=== PATIENT | male | born 1965 | race Caucasian/White ===

== ENCOUNTER 2018-10-09 10:31 | Inpatient (IN) | payer BC ==
[2018-10-09] VITALS (19 sets, daily range): BP systolic 76–104; BP diastolic 59–75; PULSE 111–120; RESP 16–35; Ht 160 cm; Wt 46.0 kg
[~2018-10-09] VITALS: Ht 160 cm; Wt 46.0 kg
[2018-10-09] MEDS ORDERED: BISACODYL 10 MG SUPP PR PRN (14:00)
[2018-10-09] MEDS ORDERED: hydrALAzine 20 MG INJ IV PRN (14:00)
[2018-10-09] MEDS ORDERED: AL HYDROX/MG HYDROX/SIMETH 30 ML CUP PO PRN (14:00)
[2018-10-09] MEDS ORDERED: SENNA TAB PO PRN (14:00)
[2018-10-09] MEDS ORDERED: POLYETHYLENE GLYCOL 17 GM PACKET GTB PRN (14:00)
[2018-10-09] MEDS ORDERED: MICONAZOLE 2% 30 GM CR TOP PRN (14:00)
--- NOTE | 2018-10-09 14:47 | CONS ---
DATE OF ADMISSION: 10/09/2018 DATE OF CONSULTATION: 10/09/2018 REASON FOR CONSULTATION: Tachycardia. REQUESTING PHYSICIAN: Nola Vidal MD; Heena Hoyt MD HISTORY OF PRESENT ILLNESS: Mr. Quiroga is a 53-year-old male with a history of outside hospitaliza tion for respiratory distress, COPD who subsequently had a prolonged intubation, requiring placement of a tracheostomy and G-tube. Additionally, a history of quadriplegia, COPD and had been treated at [facility] and today was noted to have the onset of worsening hypoxia, increasing O2 requirements up to 100%. The patient has now been transferred to the ICU at [facility] for ongoing treatment and evaluation. Since arrival, temperature 100.8, blood pressure 99/69, pulse 112. PAST MEDICAL HISTORY: As above in HPI, the patient with history of diabetes mellitus, spinal stenosi s, cervical myelopathy, [02:26] arthritis, steroid dependent, adrenal insufficiency, on steroids , quadriplegia. MEDICATIONS PRIOR AT [place]: Hydrocortisone for adrenal insufficiency, Reglan DuoNebs. MEDICATIONS CURRENTLY IN HOSPITAL: Pending at this time. MEDICATIONS PRIOR TO ADMIT: 1. Hydrocodone. 2. Reglan. 3. DuoNeb. 4. Lasix. 5. Potassium. 6. Insulin. 7. Gabapentin. 8. Tylenol. 9. Clonidine. 10. Metoprolol 50 b.i.d. 11. Magnesium oxide. ALLERGIES: No known drug allergies. SOCIAL HISTORY: No current tobacco, ETOH or illicit drug use. FAMILY HISTORY: No sudden cardiac or early CAD. REVIEW OF SYSTEMS: As above in HPI. CONSTITUTIONAL: Positive fevers. PULMONARY: Respiratory failure, chronic, status post trach. GASTROINTESTINAL: Status post G-tube. GENITOURINARY: No hematuria. MUSCULOSKELETAL: Degenerative joint disease. PSYCHIATRIC: No documented psych history. NEUROLOGIC: No documented history of CVA. ENDOCRINE: Positive diabetes mellitus. PHYSICAL EXAMINATION: VITAL SIGNS: Temperature 100.8, blood pressure 99/69, pulse 112, respiratory rate 25. GENERAL: The patient is alert, awake, no acute distress. NECK: JVP approximately 8 to 9 cm of water. CHEST: Fair air movement throughout. HEART: Regular rate and rhythm. Normal S1, S2, I/ systolic murmur. Nondisplaced PMI. ABDOMEN: Positive bowel sounds, soft. EXTREMITIES: No significant pitting edema, 1+ pulses bilateral posterior tibial. LABORATORY DATA: ABG from today revealing a pH of 7.415, a pO2 of 66, pCO2 of 58. IMAGING STUDIES: As above in HPI. No further imaging studies for my review at this time. ELECTROCARDIOGRAM: No further electrocardiograms for my review at this time. IMPRESSION: 1. Tachycardia at this time in the setting of fevers and respiratory distress, most consistent with sinus tachycardia likely driving this process. 2. Hypertension with borderline hypotension at this time. 3. Abnormal electrocardiogram at baseline. 4. Chronic respiratory failure, status post tracheostomy. 5. Dysphagia, status post G-tube. 6. Quadriplegia. 7. Renal insufficiency, on steroids. 8. Chronic obstructive pulmonary disease. 9. Rheumatoid arthritis. 10. Chronic kidney disease. 11. Diabetes mellitus. RECOMMENDATIONS: 1. At this time, would maintain the patient in ICU on close monitoring. 2. Would follow the patient's repeat chest x-ray for reassessment of the patient's pulmonary vascula ture. 3. Would continue the patient's ventilatory support and would resume the patient's baseline steroids and bronchodilators. Additionally would consider reinitiation of antibiotic therapy and would check culture data, follow up culture data closely. 4. Treat the patient's fevers and follow for any recurrence and follow heart rate closely. 5. We will reorder the patient's echo as once again somehow was ordered at [place], but it was not do ne. Thank you for allowing me to take part in the care of this patient. I will continue to follow very c losely with you with recommendations to be made as the patient progresses through his inpatient hospi loyd clinical course. Dictated By: BRISA TSAI/EFREN Conf#: [id number] DID#: [id number] CC: NOLA VIDAL MD;*End*
[2018-10-09] MEDS ORDERED: GLUCAGON 1 MG INJ IM PRN (15:00)
[2018-10-09] MEDS ORDERED: DEXTROSE 50% 50 ML SYRINGE IV PRN ×2 (15:00)
[2018-10-09] MEDS ORDERED: GLUCOSE GEL 15 GRAM TUBE BUCCAL PRN (15:00)
[2018-10-09] MEDS ORDERED: GLUCOSE GEL 15 GRAM TUBE PO PRN ×2 (15:00)
--- NOTE | 2018-10-09 15:05 | CONS ---
DATE OF ADMISSION: 10/09/2018 DATE OF CONSULTATION: TYPE OF CONSULTATION: Gastroenterology. HISTORY OF PRESENT ILLNESS: A 53-year-old male with a history of cervical spine surgery, status post functional quadriplegia, status post G-tube, tracheostomy, vent dependent respiratory failure, chron ic adrenal insufficiency, rheumatoid arthritis for the last 10 years on steroid, was stable in [place] ; however this morning, his condition deteriorated. He became not short of breath requiring 100% oxy gen, so he was transferred to intensive care unit at [facility] for further managem ent. As per the staff nurse, I discussed both at [place] and here, there was no evidence of aspiratio n of the formula. The patient did have 1 episode of emesis yesterday then the formula was increased from 30 to 45 mL. No GI bleeding. No chest pain. No abdominal pain. The patient is fully alert an d awake. PAST MEDICAL HISTORY: Chronic kidney disease, hypothyroidism, severe rheumatoid arthritis, chronic p ain, degenerative joint disease. PAST SURGICAL HISTORY: Status post left shoulder surgery, left femur surgery, C-spine surgery and a G-tube. SOCIAL HISTORY: Does not smoke or drink. MEDICATIONS: All reviewed. PHYSICAL EXAMINATION: GENERAL: He is fully alert, awake, not in distress, able to communicate and family is by the side of the patient. CARDIOVASCULAR: No murmur. LUNGS: Air entry diminished at both bases. He is on vent, FiO2 of 80%. ABDOMEN: Totally benign. EXTREMITIES: No edema. CENTRAL NERVOUS SYSTEM: Oriented. Unable to move the lower extremities. IMPRESSION: 1. Respiratory failure secondary to pneumonia versus interstitial pneumonitis from rheumatoid arthri tis versus mild aspiration. The patient was getting ice chips. There was no evidence of aspiration of formula. 2. Severe rheumatoid arthritis. 3. Quadriplegia. 4. Adrenal insufficiency. 5. Gastroparesis. 6. Hypothyroidism. 7. Chronic pain syndrome. 8. Hypertension. PLAN: Continue Reglan. We will keep him n.p.o. for 24 hours until his respiratory status got stabil ized and we will start feeding him tomorrow morning at 30 mL per hour. Continue present care. Dictated By: BHAVIK KENT/EFREN Conf#: [id number] DID#: [id number] CC: DALTON DURBIN MD; NOLA VIDAL MD;*End*
[2018-10-09] MEDS ORDERED: SOD CHLORIDE 0.9% 500 ML IV ONE (15:30)
[2018-10-09] MEDS: GABAPENTIN (50 MG/ML PO SYG) GTB SCH ×2 (15:42→21:54)
[2018-10-09] MEDS: INSULIN ASPART [NOVOLOG] 3 ML PEN SC SCH ×2 (15:42→20:00)
[2018-10-09] MEDS: HYDROCORTISONE 5 MG TAB PO SCH ×2 (15:43→21:54)
[2018-10-09] MEDS: HYDROmorphONE 2 MG TAB PO PRN (15:44)
[2018-10-09] MEDS ORDERED: ALBUTEROL/IPRATROPIUM (NEB) 3 ML AMP HHN SCH (17:00)
[2018-10-09] MEDS: LANSOPRAZOLE 30 MG CAP GTB SCH (17:13)
[2018-10-09] MEDS ORDERED: ALBUTEROL HFA 8 GM INHALER INH SCH (20:00)
[2018-10-09] MEDS ORDERED: IPRATROPIUM (HFA) 12.9 GM INHALER INH SCH (20:00)
[2018-10-09] MEDS: PIPER-TAZO 3.375 GM IV (PMX) 100 ML IVPB SCH (20:08)
[2018-10-09] MEDS: METOPROLOL 50 MG TAB GTB SCH (21:00)
[2018-10-09] MEDS: LEVETIRACETAM (100 MG/ML) 5ML CUP GTB SCH (21:52)
[2018-10-09] MEDS: MAGNESIUM OXIDE 400 MG TAB GTB SCH (21:53)
[2018-10-09] MEDS: L ACIDOPHIL/B LACTIS/B LONGUM CAPSULE GTB SCH (21:54)
[2018-10-09] MEDS: METOCLOPRAMIDE 10 MG INJ IV SCH (21:58)
[2018-10-09] MEDS: ONDANSETRON 4 MG INJ IV PRN (22:13)
--- NOTE | 2018-10-09 22:38 | CONS ---
Assessment/Plan Assessment/Plan Hospital Course (Demo Recall) sepsis, respiratory - recurrent sepsis on 10/08/2018 due to possible aspiration pneumonia, HCAP - possible aspiration pneumonia - acute on chronic hypoxic and hypercarbic respiratory failure - persistent leukocytosis likely due to pneumonia, partly due to steroid margination - h/o tracheostomy on 08/26/2018 - h/o "Increased mild left apical pneumothorax" per CXR on 09/19/2018; no pneumothorax mentioned on subsequent CXR - h/o pneumomediastinum - h/o VAT on 08/11/2018 - h/o asthma/COPD exacerbation - h/o acute tracheobronchitis - h/o MAC infection but CT chest did not demonstrate features suggestive of this per chart review - h/o HCAP due to citrobacter, based on resp culture on 09/13/2018 - h/o aspergillus growing out of resp culture per (pulm note by Dr. Lopez) on 07/25/2018 - h/o elevated 1,3 Rprh-A-fffeil level = 232 on 08/06/2018 - h/o MSSA septicemia GI - h/o HSV esophagitis, took acyclovir x21 days from 08/26/2018 - h/o EGD, esophageal biopsy showed esophageal squamous mucosa showing acute inflammation, granulation tissue, and ulceration consistent with ulcerative esophagitis, rare multinucleated cells with morphology suggestive of vial cytopathic changes, No cardiac mucosa, intestinal metaplasia, dysplasia, or malignancy defined - GERD - PUD renal/ - Hypokalemia, recurrent - CKD 2 - BPH cardiac - tachycardia, persistent - ACD - HTN - HLD endo - T2DM - Hgb A1c 7.2% - secondary adrenal insufficiency; steroid dependent - Hypoparathyroidism - Hypercalcemia - Pamidronate was ordered neuro - toxic metabolic encephalopathy - Cervical myopathy - Severe cervical spinal cord stenosis with cord compression from C3-C5, s/p laminectomy in ~03/2018 - Chronic pain syndrome - Functional quadriplegia - Seizure d/o other chronic conditions - RA with chronic steroid dependence - Immunocompromised status - Fibromyalgia rheumatica - DDD - H/o multiple rib fracture - Pt completed: meropenem (09/25/2018-10/02/2018), vancomycin (09/25/18-09/28/18) recommendations - pending results: cultures of blood and urine from 10/09/2018 (at [facility]) - ordered: resp culture and stool for C diff and culture - continue pip/tazo (10/09/2018-) - continue Bactrim for pneumocystis PPX - management d/w Pt's RN the critical care time I took to care for this Pt today was from 2200 to 2230 Consultation Date/Type/Reason Admit Date/Time Oct 09, 2018 at 12:16 Date of Consultation: Oct 09, 2018 Type of Consult ID Reason for Consultation sepsis Requesting Provider: NOLA VIDAL MD Date/Time of Note DATE: 10/09/18 TIME: 22:10 Hx of Present Illness This is a 53 yo male with COPD, chronic adrenal insufficiency, steroid dependent rheumatoid arthritis. He had cervical myelopathy, spinal stenosis and cord compression s/p cervical laminectomy in 03/2018. Pt has been quadriplegic. In the beginning of 07/2018 Pt was treated for COPD exacerbation at [facility] and was discharged home with steroid, azithromycin and cefdinir. Pt was readmitted at [facility] between 07/26/2018 and 09/16/2018 for worsening dyspnea. Pt initially received ceftriaxone and azithromycin for acute tracheobronchitis. Pt's ID digital media sales consultant there was Dr. Sosa. Pt has remote h/o MAC infection but CT chest did not demonstrate features suggestive of this per chart review. At [facility], he had aspergillus growing out of resp culture per (pulm note by Dr. Lopez) on 07/25/2018. He underwent VATS on 08/11/2018 with details unknown. His resp status worsened resulting in tracheostomy on 08/26/2018 and PEG placement. Pt was started on Bactrim for pneumocystis prophylaxis because he is on chronic steroid and because his 1,0-hepx-L-glucan level was elevated 232 on 08/06/2018. He reportedly had HSV esophagitis during that admission and took acyclovir for 21 days starting on 08/26/2018. He had an EGD, and is esophageal biopsy showed esophageal squamous mucosa showing acute inflammation, granulation tissue, and ulceration consistent with ulcerative esophagitis, rare multinucleated cells with morphology suggestive of vial cytopathic changes. Pt also had MSSA septicemia with detail of his treatment unknown. His hospital course there was also significant for seizure activities for which he was given keppra. His head CT was reportedly negative. Prior to transfer to [facility], Pt had HCAP due to citrobacter, based on resp culture on 09/13/2018, and took meropenem. Pt was transferred to [facility] on 09/17/2018 with meropenem and prophylactic Bactrim. Dr. Vidal requested ID consultation on this Pt because of leukocytosis. Our team evaluated Pt and initially his leukocytosis was thought to be associated with tracheobronchitis and steroid. Pt continued to take meropenem, and IV vancomycin was added at one point. Cultures of blood and urine were negative, and his resp culture on 09/26/2018 grew normal resp jadon. Meropenem and IV vancomycin were discontinued . Pt was kept on Bactrim for pneumocystis propylaxis. Last week he started having repeated episodes of vomiting. He was also noted to have hypercalcemia. For the last three days, he was noted to be more lethargic and to have increased FiO2 requirement. WBC increased to 23.4 and his lactic acid was 2.2 on 10/08/2018. As a result blood and urine cultures were collected. CXR showed diffuse pulmonary opacities within both lungs. On 10/09/2018 he developed acute on chronic hypoxic resp failure, and was transferred to [facility] ICU. At present Pt c/o abd pain, and had diarrhea. Pt denies dyspnea. I evaluated Pt to continue providing ID consultation service for this Pt Subjective hx not possible: pt non-verbal (limited, he would speak by moving his lips only), pt critical, pt critical status Respiratory: No shortness of breath Cardiovascular: No chest pain Gastrointestinal: diarrhea, nausea; No pain Genitourinary: other (FC) Neurologic: No headache Past Medical History Medical History: hypertension, renal disease, other (COPD, RA, spinal stenosis, neuropathy, cervical myelopathy with cervical radiculopathy, chronic pain syndrome, tracheobronchitis, fibromyalgia, MAC infection, anemia, chronic steroid therapy) Medications Current Medications Acetaminophen (Tylenol Liquid) 650 mg Q4H PRN GTB MILD PAIN(1-3)OR ELEVATED TEMP; Start 10/09/18 at 14:00 Al Hydrox/Mg Hydrox/Simethicone (Mag-Al Plus) 15 ml Q6H PRN PO GASTROINTESTINAL UPSET; Start 10/09/18 at 14:00 Alprazolam (Xanax) 0.5 mg Q6 PRN GTB ANXIETY; Start 10/09/18 at 14:00 Eye Lubricant (Artificial Tears Oph) 1 drop Q6H PRN BOTH EYES DRY EYES; Start 10/09/18 at 14:00 Bisacodyl (Dulcolax Supp) 10 mg DAILY PRN CA CONSTIPATION; Start 10/09/18 at 14:00 Clonidine (Catapres) 0.1 mg DAILY PRN GTB ELEVATED BLOOD PRESSURE; Start 10/09/18 at 14:00 Diltiazem HCl (Cardizem Iv) 5 mg Q4 PRN IV ELEVATED HEART RATE; Start 10/09/18 at 14:00 Diphenhydramine HCl (Benadryl Liquid Cup) 25 mg Q6 PRN GTB ITCHING; Start 10/09/18 at 14:00 Duloxetine HCl (Cymbalta) 30 mg DAILY PO ; Start 10/10/18 at 09:00 Epoetin Arpan (Epogen (Esrd)) 10,000 units TuSa@1300 SC ; Start 10/11/18 at 13:00 Fentanyl (Duragesic 25 Mcg/Hr Patch) 1 patch Q72H TRANSDERM ; Start 10/11/18 at 15:00 Furosemide (Lasix) 40 mg DAILY IV ; Start 10/10/18 at 09:00 Gabapentin (Neurontin Liquid) 400 mg Q8 GTB Last administered on 10/09/18at 21:54; Admin Dose 400 MG; Start 10/09/18 at 15:30 Hydralazine HCl (Apresoline) 10 mg Q4H PRN IV ELEVATED BLOOD PRESSURE; Start 10/09/18 at 14:00 Hydrocortisone (Cortef) 10 mg DAILY PO ; Start 10/10/18 at 09:00 Hydrocortisone (Cortef) 5 mg 1500 PO Last administered on 10/09/18at 15:43; Admin Dose 5 MG; Start 10/09/18 at 15:00 Hydrocortisone (Cortef) 2.5 mg QHS PO Last administered on 10/09/18at 21:54; Admin Dose 2.5 MG; Start 10/09/18 at 21:00 Influenza Virus Vaccine Quadrival (Fluzone) 0.5 ml ONCE ONCE IM* ; Start 10/12/18 at 09:00; Stop 10/12/18 at 09:01 Hydromorphone HCl (Dilaudid) 4 mg Q4H PRN PO MODERATE PAIN LEVEL 4-6; Start 10/09/18 at 14:00 Hydromorphone HCl (Dilaudid) 8 mg Q4H PRN PO SEVERE PAIN LEVEL 7-10 Last administered on 10/09/18at 15:44; Admin Dose 8 MG; Start 10/09/18 at 14:00 Hydroxychloroquine Sulfate (Plaquenil) 200 mg BID PO ; Start 10/09/18 at 21:00 Diagnostic Test (Pha) (Accu-Chek) 1 ea 02 XX ; Start 10/10/18 at 02:00 Insulin Aspart (Novolog Insulin Pen) NOVOLOG *CUSTOM* ALGORITHM Q6H SC ; Start 10/09/18 at 14:00 Lactobacillus Acidophilus (Florajen3 Capsule) 1 each BID GTB Last administered on 10/09/18 21:54; Admin Dose 1 EACH; Start 10/09/18 at 21:00 Lansoprazole (Prevacid) 30 mg BID@,18 GTB Last administered on 10/09/18 17:13; Admin Dose 30 MG; Start 10/09/18 at 18:00 Levetiracetam (Keppra Liquid) 500 mg BID GTB Last administered on 10/09/18 21:52; Admin Dose 500 MG; Start 10/09/18 at 21:00 Magnesium Oxide (Mag-Ox 400) 400 mg BID GTB Last administered on 10/09/18 21:53; Admin Dose 400 MG; Start 10/09/18 at 21:00 Metoclopramide HCl (Reglan) 10 mg TID IV Last administered on 10/09/18 21:58; Admin Dose 10 MG; Start 10/09/18 at 21:00 Metoprolol Tartrate (Lopressor) 50 mg BID GTB ; Start 10/09/18 at 21:00 Miconazole Nitrate (Miconazole 2% Cr) 1 applic BID TOP ; Start 10/09/18 at 21:00 Miconazole Nitrate (Miconazole 2% Cr) 1 applic Q12 PRN TOP rash; Start 10/09/18 at 14:00 Ondansetron HCl (Zofran Inj) 4 mg Q4H PRN IV NAUSEA AND/OR VOMITING; Start 10/09/18 at 14:00 Polyethylene Glycol (Miralax) 17 gm DAILY PRN GTB CONSTIPATION; Start 10/09/18 at 14:00 Potassium Chloride (Potassium Chloride Pwd/Soln) 20 meq DAILY GTB ; Start 10/10/18 at 09:00 Senna (Senokot) 2 tab Q8 PRN PO CONSTIPATION; Start 10/09/18 at 14:00 Trimethoprim/ Sulfamethoxazole (Bactrim Susp) 40 ml DAILY GTB ; Start 10/10/18 at 09:00 Zolpidem Tartrate (Ambien) 5 mg HS PRN PO INSOMNIA; Start 10/09/18 at 14:00 Miscellaneous Information 1 ea NOTE XX ; Start 10/09/18 at 15:00 Glucose (Glutose) 15 gm Q15M PRN PO DECREASED GLUCOSE; Start 10/09/18 at 15:00 Glucose (Glutose) 22.5 gm Q15M PRN PO DECREASED GLUCOSE; Start 10/09/18 at 15:00 Dextrose (D50w Syringe) 25 ml Q15M PRN IV DECREASED GLUCOSE; Start 10/09/18 at 15:00 Dextrose (D50w Syringe) 50 ml Q15M PRN IV DECREASED GLUCOSE; Start 10/09/18 at 15:00 Glucagon (Glucagen) 1 mg Q15M PRN IM DECREASED GLUCOSE; Start 10/09/18 at 15:00 Glucose (Glutose) 15 gm Q15M PRN BUCCAL DECREASED GLUCOSE; Start 10/09/18 at 15:00 Albuterol (Ventolin Hfa) 4 puff Q6 INH ; Start 10/09/18 at 20:00 Ipratropium [place] (Atrovent Hfa) 4 puff Q6 INH Last administered on 10/09/18at 19:28; Admin Dose 4 PUFF; Start 10/09/18 at 20:00 Sodium Chloride 500 ml @ 500 mls/hr Q1H PRN IV BLOOD PRESSURE SUPPORT; Start 10/09/18 at 19:30 Piperacillin Sod/ Tazobactam Sod 100 ml @ 200 mls/hr Q6 IVPB Last administered on 10/09/18at 20:08; Admin Dose 200 MLS/HR; Start 10/09/18 at 20:00 Allergies: Coded Allergies: No Known Allergy (Unverified , 09/16/18) Past Surgical History Past Surgical Hx: other (L shoulder surgery, L femur fracture ORIF, C3-C5 lami nectomy with instrucmention from C3-C6, taract repair, EGD, colonoscopy, ERCP, I&D of thumb abscess, laser lithotripsy of nephrolithiasis) Social History Smoking Status: Never smoker Drug Use: none Exam/Review of Systems Exam Vitals Vital Signs Date Temp Pulse Resp B/P (MAP) Pulse Ox O2 O2 Flow FiO2 Time Delivery Rate 10/09/18 117 20:00 10/09/18 16 88/71 (77) 95 Mechanical 18:00 Ventilator 10/09/18 80 17:46 10/09/18 99.6 16:00 Constitutional: frail, other (thin) Psych: other (flat affect) Eyes: nl conjunctiva, nl lids ENMT: nl external ears & nose, other (no thrush) Neck: other (trach) Respiratory: diminished breath sounds Cardiovascular: edema (all extremities), other (tachycardic and regular) Gastrointestinal: soft, non-tender, other (PEG) Genitourinary - Male: other (FC) Musculoskeletal: nl extremities to inspection Extremities: edema (all extremities and fingers) Neurological: lethargic Skin: ecchymosis Results Results 24hrs Laboratory Tests Test 10/09/18 13:25 10/09/18 15:28 10/09/18 20:09 Blood Gas Specimen Source Blood arterial Arterial Blood Date Drawn 10/09/2018 1:27:16 PM Arterial Blood pH 7.415 (Temp corrected) Arterial Blood pCO2 58.8 H (Temp correct) Arterial Blood pO2 66.0 L (Temp corrected) Arterial Blood HCO3 36.9 H Arterial Blood Base Excess 10.5 H Arterial Blood 91.9 L Oxygen Saturation [place] Test ACCEPTAB Arterial Blood Gas Left Radial Puncture Site Arterial 0.3 Blood Carboxyhemoglobin Arterial Blood Methemoglobin 0.4 Blood Gas A-a O2 442.7 H Differential Oxyhemoglobin Percent 91.3 L Blood Gas Temperature 37.0 Blood Gas Respiration Rate 20.0 Blood Gas Actual 23 Respiration Rate Blood Gas Modality VENT - PC/AC FiO2 80.0 Blood Gas Inspiratory Time 0.90 Blood Gas Low PEEP Setting 5.0 Blood Gas Inspiratory 28.0 Pressure Blood Gas Notified Whom LS Blood Gas Notified Time 10/09/2018 1:43:27 PM Bedside Glucose 95 84 Medications Medication Current Medications Acetaminophen (Tylenol Liquid) 650 mg Q4H PRN GTB MILD PAIN(1-3)OR ELEVATED TEMP; Start 10/09/18 at 14:00 Al Hydrox/Mg Hydrox/Simethicone (Mag-Al Plus) 15 ml Q6H PRN PO GASTROINTESTINAL UPSET; Start 10/09/18 at 14:00 Alprazolam (Xanax) 0.5 mg Q6 PRN GTB ANXIETY; Start 10/09/18 at 14:00 Eye Lubricant (Artificial Tears Oph) 1 drop Q6H PRN BOTH EYES DRY EYES; Start 10/09/18 at 14:00 Bisacodyl (Dulcolax Supp) 10 mg DAILY PRN CA CONSTIPATION; Start 10/09/18 at 14:00 Clonidine (Catapres) 0.1 mg DAILY PRN GTB ELEVATED BLOOD PRESSURE; Start 10/09/18 at 14:00 Diltiazem HCl (Cardizem Iv) 5 mg Q4 PRN IV ELEVATED HEART RATE; Start 10/09/18 at 14:00 Diphenhydramine HCl (Benadryl Liquid Cup) 25 mg Q6 PRN GTB ITCHING; Start 10/09/18 at 14:00 Duloxetine HCl (Cymbalta) 30 mg DAILY PO ; Start 10/10/18 at 09:00 Epoetin Arpan (Epogen (Esrd)) 10,000 units TuSa@1300 SC ; Start 10/11/18 at 13:00 Fentanyl (Duragesic 25 Mcg/Hr Patch) 1 patch Q72H TRANSDERM ; Start 10/11/18 at 15:00 Furosemide (Lasix) 40 mg DAILY IV ; Start 10/10/18 at 09:00 Gabapentin (Neurontin Liquid) 400 mg Q8 GTB Last administered on 10/09/18at 21:54; Admin Dose 400 MG; Start 10/09/18 at 15:30 Hydralazine HCl (Apresoline) 10 mg Q4H PRN IV ELEVATED BLOOD PRESSURE; Start 10/09/18 at 14:00 Hydrocortisone (Cortef) 10 mg DAILY PO ; Start 10/10/18 at 09:00 Hydrocortisone (Cortef) 5 mg 1500 PO Last administered on 10/09/18at 15:43; Admin Dose 5 MG; Start 10/09/18 at 15:00 Hydrocortisone (Cortef) 2.5 mg QHS PO Last administered on 10/09/18at 21:54; Admin Dose 2.5 MG; Start 10/09/18 at 21:00 Influenza Virus Vaccine Quadrival (Fluzone) 0.5 ml ONCE ONCE IM* ; Start 10/12/18 at 09:00; Stop 10/12/18 at 09:01 Hydromorphone HCl (Dilaudid) 4 mg Q4H PRN PO MODERATE PAIN LEVEL 4-6; Start 10/09/18 at 14:00 Hydromorphone HCl (Dilaudid) 8 mg Q4H PRN PO SEVERE PAIN LEVEL 7-10 Last admini stered on 10/09/18at 15:44; Admin Dose 8 MG; Start 10/09/18 at 14:00 Hydroxychloroquine Sulfate (Plaquenil) 200 mg BID PO ; Start 10/09/18 at 21:00 Diagnostic Test (Pha) (Accu-Chek) 1 ea 02 XX ; Start 10/10/18 at 02:00 Insulin Aspart (Novolog Insulin Pen) NOVOLOG *CUSTOM* ALGORITHM Q6H SC ; Start 10/09/18 at 14:00 Lactobacillus Acidophilus (Florajen3 Capsule) 1 each BID GTB Last administered on 10/09/18 21:54; Admin Dose 1 EACH; Start 10/09/18 at 21:00 Lansoprazole (Prevacid) 30 mg BID@,18 GTB Last administered on 10/09/18at 17:13; Admin Dose 30 MG; Start 10/09/18 at 18:00 Levetiracetam (Keppra Liquid) 500 mg BID GTB Last administered on 10/09/18 21:52; Admin Dose 500 MG; Start 10/09/18 at 21:00 Magnesium Oxide (Mag-Ox 400) 400 mg BID GTB Last administered on 10/09/18 21:53; Admin Dose 400 MG; Start 10/09/18 at 21:00 Metoclopramide HCl (Reglan) 10 mg TID IV Last administered on 10/09/18 21:58; Admin Dose 10 MG; Start 10/09/18 at 21:00 Metoprolol Tartrate (Lopressor) 50 mg BID GTB ; Start 10/09/18 at 21:00 Miconazole Nitrate (Miconazole 2% Cr) 1 applic BID TOP ; Start 10/09/18 at 21:00 Miconazole Nitrate (Miconazole 2% Cr) 1 applic Q12 PRN TOP rash; Start 10/09/18 at 14:00 Ondansetron HCl (Zofran Inj) 4 mg Q4H PRN IV NAUSEA AND/OR VOMITING; Start at 14:00 Polyethylene Glycol (Miralax) 17 gm DAILY PRN GTB CONSTIPATION; Start 10/09/18 at 14:00 Potassium Chloride (Potassium Chloride Pwd/Soln) 20 meq DAILY GTB ; Start 10/10/18 at 09:00 Senna (Senokot) 2 tab Q8 PRN PO CONSTIPATION; Start 10/09/18 at 14:00 Trimethoprim/ Sulfamethoxazole (Bactrim Susp) 40 ml DAILY GTB ; Start 10/10/18 at 09:00 Zolpidem Tartrate (Ambien) 5 mg HS PRN PO INSOMNIA; Start 10/09/18 at 14:00 Miscellaneous Information 1 ea NOTE XX ; Start 10/09/18 at 15:00 Glucose (Glutose) 15 gm Q15M PRN PO DECREASED GLUCOSE; Start 10/09/18 at 15:00 Glucose (Glutose) 22.5 gm Q15M PRN PO DECREASED GLUCOSE; Start 10/09/18 at 15:00 Dextrose (D50w Syringe) 25 ml Q15M PRN IV DECREASED GLUCOSE; Start 10/09/18 at 15:00 Dextrose (D50w Syringe) 50 ml Q15M PRN IV DECREASED GLUCOSE; Start 10/09/18 at 15:00 Glucagon (Glucagen) 1 mg Q15M PRN IM DECREASED GLUCOSE; Start 10/09/18 at 15:00 Glucose (Glutose) 15 gm Q15M PRN BUCCAL DECREASED GLUCOSE; Start 10/09/18 at 15:00 Albuterol (Ventolin Hfa) 4 puff Q6 INH ; Start 10/09/18 at 20:00 Ipratropium [place] (Atrovent Hfa) 4 puff Q6 INH Last administered on 10/09/18at 19:28; Admin Dose 4 PUFF; Start 10/09/18 at 20:00 Sodium Chloride 500 ml @ 500 mls/hr Q1H PRN IV BLOOD PRESSURE SUPPORT; Start 10/09/18 at 19:30 Piperacillin Sod/ Tazobactam Sod 100 ml @ 200 mls/hr Q6 IVPB Last administered on 10/09/18at 20:08; Admin Dose 200 MLS/HR; Start 10/09/18 at 20:00 NEMO MARTINEZ M.D. Oct 09, 2018 22:21
[2018-10-09] MEDS: HYDROXYCHLOROQUINE 200 MG TAB PO SCH (23:26)
[2018-10-09] MEDS: MICONAZOLE 2% 30 GM CR TOP SCH (23:28)
[2018-10-10] VITALS (42 sets, daily range): BP systolic 80–113; BP diastolic 57–81; PULSE 100–122; RESP 17–38
[2018-10-10] MEDS: PIPER-TAZO 3.375 GM IV (PMX) 100 ML IVPB SCH ×4 (01:01→17:34)
[2018-10-10] MEDS: ALBUTEROL HFA 8 GM INHALER INH SCH ×4 (01:49→19:45)
[2018-10-10] MEDS: IPRATROPIUM (HFA) 12.9 GM INHALER INH SCH ×4 (01:49→19:45)
[2018-10-10] MEDS: INSULIN ASPART [NOVOLOG] 3 ML PEN SC SCH ×4 (02:00→20:00)
[2018-10-10] MEDS: ACCU-CHEK XX SCH (02:33)
[2018-10-10] MEDS: ACETAMINOPHEN 650MG/20.3ML CUP GTB PRN (03:10)
[2018-10-10] MEDS: GABAPENTIN (50 MG/ML PO SYG) GTB SCH ×3 (05:32→21:53)
[2018-10-10] MEDS: HYDROmorphONE 2 MG TAB PO PRN ×5 (05:32→21:55)
[2018-10-10] MEDS: LANSOPRAZOLE 30 MG CAP GTB SCH ×2 (05:32→17:34)
[2018-10-10] MEDS: SOD CHLORIDE 0.9% 500 ML IV PRN (07:59)
[2018-10-10] MEDS: METOPROLOL 50 MG TAB GTB SCH (09:00)
[2018-10-10] MEDS: METOCLOPRAMIDE 10 MG INJ IV SCH ×3 (09:00→21:54)
[2018-10-10] MEDS: FUROSEMIDE 40 MG INJ IV SCH (09:00)
[2018-10-10] MEDS: L ACIDOPHIL/B LACTIS/B LONGUM CAPSULE GTB SCH ×2 (09:07→21:53)
[2018-10-10] MEDS: LEVETIRACETAM (100 MG/ML) 5ML CUP GTB SCH ×2 (09:08→21:55)
[2018-10-10] MEDS: TRIMETHOPRIM/SULFAMETHOX (PO SYG) GTB SCH (09:08)
[2018-10-10] MEDS: HYDROCORTISONE 5 MG TAB PO SCH ×3 (09:08→21:54)
[2018-10-10] MEDS: POTASSIUM CHLORIDE 20 MEQ POWDER FOR ORAL SOLN GTB SCH (09:09)
[2018-10-10] MEDS: MAGNESIUM OXIDE 400 MG TAB GTB SCH ×2 (09:09→21:55)
[2018-10-10] MEDS: HYDROXYCHLOROQUINE 200 MG TAB PO SCH ×2 (09:10→21:54)
[2018-10-10] MEDS: MICONAZOLE 2% 30 GM CR TOP SCH ×2 (09:10→21:54)
[2018-10-10] MEDS: DULOXETINE 30 MG CAP DR PO SCH (09:10)
--- NOTE | 2018-10-10 09:15 | CONS ---
Assessment/Plan Assessment/Plan Hospital Course (Demo Recall) 53 yo male pt in [place] transferred to ICU for increased O2 demands Interval hx: On 70% FiO2. Pt is asking for water. WBC 18.6. No CXR. 1. Respiratory failure secondary to pneumonia versus interstitial pneumonitis from rheumatoid arthritis versus mild aspiration. The patient was getting ice chips. There was no evidence of aspiration of formula. 2. Severe rheumatoid arthritis. 3. Quadriplegia. 4. Adrenal insufficiency. 5. Gastroparesis. 6. Hypothyroidism. 7. Chronic pain syndrome. 8. Hypertension. 9. Diarrhea CXR 10/09: at [place] Similar appearance of the diffuse pulmonary opacities within both lungs which may be from edema, pneumonia, or pneumonitis. PLAN: KUB, if KUB wnl then can re start tube feeds at 30cc Continue Reglan. Aspiration precautions Consider video swallow evaluation as patient stabilizes Pt examined and plan of care discussed with DR Minaya Consultation Date/Type/Reason Admit Date/Time Oct 09, 2018 at 12:16 Initial Consult Date 10/09/18 Requesting Provider: NOLA VIDAL MD Date/Time of Note DATE: 10/10/18 TIME: 09:05 Exam/Review of Systems Exam Vitals Vital Signs Date Temp Pulse Resp B/P (MAP) Pulse Ox O2 O2 Flow FiO2 Time Delivery Rate 10/10/18 107 23 81/59 (66) 100 06:30 10/10/18 Mechanical 06:00 Ventilator 10/10/18 90 05:20 10/10/18 98.7 04:00 Intake and Output 10/09/18 10/09/18 10/10/18 1515:00 23:00 07:00 IntakeIntake Total 0 ml 600 ml 100 ml OutputOutput Total 100 ml 380 ml 250 ml BalanceBalance -100 ml 220 ml -150 ml Constitutional: alert, oriented Psych: no complaints Head: normocephalic Eyes: nl sclera, PERRL Respiratory: diminished breath sounds Cardiovascular: regular rate and rhythm Gastrointestinal: soft, non-tender Extremities: edema Neurological: nl mental status Results Result Diagram: 10/10/18 0439 10/10/18 0439 Results 24hrs Laboratory Tests Test 10/09/18 13:25 10/09/18 15:28 10/09/18 20:09 10/10/18 01:06 Blood Gas Blood arterial Specimen Source Arterial Blood 10/09/2018 1:27:1 Date Drawn 6 PM Arterial Blood pH 7.415 (Temp corrected) Arterial Blood 58.8 H pCO2 (Temp correct) Arterial Blood 66.0 L pO2 (Temp corrected) Arterial Blood 36.9 H HCO3 Arterial Blood 10.5 H Base Excess Arterial Blood 91.9 L Oxygen Saturation [place] Test ACCEPTAB Arterial Blood Left Radial Gas Puncture Site Arterial 0.3 Blood Carboxyhemo globin Arterial Blood 0.4 Methemoglobin Blood Gas A-a O2 442.7 H Differential Oxyhemoglobin 91.3 L Percent Blood Gas 37.0 Temperature Blood Gas 20.0 Respiration Rate Blood Gas Actual 23 Respiration Rate Blood Gas VENT - PC/AC Modality FiO2 80.0 Blood Gas 0.90 Inspiratory Time Blood Gas Low 5.0 PEEP Setting Blood Gas 28.0 Inspiratory Pressure Blood Gas Notified Whom Blood Gas 10/09/2018 1:43:2 Notified Time 7 PM Bedside Glucose 95 84 74 Test 10/10/18 04:39 10/10/18 06:59 10/10/18 07:58 White Blood Count 18.6 #H Red Blood Count 3.19 L Hemoglobin 9.3 L Hematocrit 30.8 L Mean Corpuscular 96.6 Volume Mean Corpuscular 29.2 Hemoglobin Mean Corpuscular 30.2 L Hemoglobin Concen t Red Cell 16.3 H Distribution Width Platelet Count 366 Mean Platelet 11.6 H Volume Immature 1.900 H Granulocytes % Neutrophils % 63.9 Lymphocytes % 6.5 L Monocytes % 6.7 Eosinophils % 19.5 H Basophils % 1.5 Nucleated Red 0.0 Blood Cells % Immature 0.360 H Granulocytes # Neutrophils # 11.9 H Lymphocytes # 1.2 Monocytes # 1.2 H Eosinophils # 3.6 H Basophils # 0.3 H Nucleated Red 0.0 Blood Cells # Sodium Level 147 H Potassium Level 4.0 Chloride Level 104 Carbon Dioxide 36 H Level Anion Gap 7 Blood Urea 46 H Nitrogen Creatinine 0.96 Est Glomerular > 60 Filtrat Rate mL/min Glucose Level 70 # Calcium Level 11.1 H Phosphorus Level 4.8 Magnesium Level 2.5 Troponin I < 0.012 Bedside Glucose 74 75 Medications Medication Current Medications Acetaminophen (Tylenol Liquid) 650 mg Q4H PRN GTB MILD PAIN(1-3)OR ELEVATED TEMP Last administered on 10/10/18at 03:10; Admin Dose 650 MG; Start 10/09/18 at 14:00 Al Hydrox/Mg Hydrox/Simethicone (Mag-Al Plus) 15 ml Q6H PRN PO GASTROINTESTINAL UPSET; Start 10/09/18 at 14:00 Alprazolam (Xanax) 0.5 mg Q6 PRN GTB ANXIETY; Start 10/09/18 at 14:00 Eye Lubricant (Artificial Tears Oph) 1 drop Q6H PRN BOTH EYES DRY EYES; Start 10/09/18 at 14:00 Bisacodyl (Dulcolax Supp) 10 mg DAILY PRN [place] CONSTIPATION; Start 10/09/18 at 14:00 Clonidine (Catapres) 0.1 mg DAILY PRN GTB ELEVATED BLOOD PRESSURE; Start 10/09/18 at 14:00 Diltiazem HCl (Cardizem Iv) 5 mg Q4 PRN IV ELEVATED HEART RATE; Start 10/09/18 at 14:00 Diphenhydramine HCl (Benadryl Liquid Cup) 25 mg Q6 PRN GTB ITCHING; Start 10/09/18 at 14:00 Duloxetine HCl (Cymbalta) 30 mg DAILY PO ; Start 10/10/18 at 09:00 Epoetin Arpan (Epogen (Esrd)) 10,000 units TuSa@1300 SC ; Start 10/11/18 at 13:00 Fentanyl (Duragesic 25 Mcg/Hr Patch) 1 patch Q72H TRANSDERM ; Start 10/11/18 at 15:00 Furosemide (Lasix) 40 mg DAILY IV ; Start 10/10/18 at 09:00 Gabapentin (Neurontin Liquid) 400 mg Q8 GTB Last administered on 10/10/18at 05:32; Admin Dose 400 MG; Start 10/09/18 at 15:30 Hydralazine HCl (Apresoline) 10 mg Q4H PRN IV ELEVATED BLOOD PRESSURE; Start 10/09/18 at 14:00 Hydrocortisone (Cortef) 10 mg DAILY PO ; Start 10/10/18 at 09:00 Hydrocortisone (Cortef) 5 mg 1500 PO Last administered on 10/09/18at 15:43; Admin Dose 5 MG; Start 10/09/18 at 15:00 Hydrocortisone (Cortef) 2.5 mg QHS PO Last administered on 10/09/18at 21:54; Admin Dose 2.5 MG; Start 10/09/18 at 21:00 Influenza Virus Vaccine Quadrival (Fluzone) 0.5 ml ONCE ONCE IM* ; Start 10/12/18 at 09:00; Stop 10/12/18 at 09:01 Hydromorphone HCl (Dilaudid) 4 mg Q4H PRN PO MODERATE PAIN LEVEL 4-6 Last administered on 10/10/18 05:32; Admin Dose 4 MG; Start 10/09/18 at 14:00 Hydromorphone HCl (Dilaudid) 8 mg Q4H PRN PO SEVERE PAIN LEVEL 7-10 Last administered on 10/09/18 15:44; Admin Dose 8 MG; Start 10/09/18 at 14:00 Hydroxychloroquine Sulfate (Plaquenil) 200 mg BID PO Last administered on 10/09/18 23:26; Admin Dose 200 MG; Start 10/09/18 at 21:00 Diagnostic Test (Pha) (Accu-Chek) 1 ea 02 XX Last administered on 10/10/18 02:33; Admin Dose 1 EA; Start 10/10/18 at 02:00 Insulin Aspart (Novolog Insulin Pen) NOVOLOG *CUSTOM* ALGORITHM Q6H SC ; Start 10/09/18 at 14:00 Lactobacillus Acidophilus (Florajen3 Capsule) 1 each BID GTB Last administered on 10/09/18 21:54; Admin Dose 1 EACH; Start 10/09/18 at 21:00 Lansoprazole (Prevacid) 30 mg BID@,18 GTB Last administered on 10/10/18 05:32; Admin Dose 30 MG; Start 10/09/18 at 18:00 Levetiracetam (Keppra Liquid) 500 mg BID GTB Last administered on 10/09/18 21:52; Admin Dose 500 MG; Start 10/09/18 at 21:00 Magnesium Oxide (Mag-Ox 400) 400 mg BID GTB Last administered on 10/09/18 21:53; Admin Dose 400 MG; Start 10/09/18 at 21:00 Metoclopramide HCl (Reglan) 10 mg TID IV Last administered on 10/09/18 21:58; Admin Dose 10 MG; Start 10/09/18 at 21:00 Metoprolol Tartrate (Lopressor) 50 mg BID GTB ; Start 10/09/18 at 21:00 Miconazole Nitrate (Miconazole 2% Cr) 1 applic BID TOP Last administered on 10/09/18at 23:28; Admin Dose 1 APPLIC; Start 10/09/18 at 21:00 Miconazole Nitrate (Miconazole 2% Cr) 1 applic Q12 PRN TOP rash; Start 10/09/18 at 14:00 Ondansetron HCl (Zofran Inj) 4 mg Q4H PRN IV NAUSEA AND/OR VOMITING Last administered on 10/09/18at 22:13; Admin Dose 4 MG; Start 10/09/18 at 14:00 Polyethylene Glycol (Miralax) 17 gm DAILY PRN GTB CONSTIPATION; Start 10/09/18 at 14:00 Potassium Chloride (Potassium Chloride Pwd/Soln) 20 meq DAILY GTB ; Start 10/10/18 at 09:00 Senna (Senokot) 2 tab Q8 PRN PO CONSTIPATION; Start 10/09/18 at 14:00 Trimethoprim/ Sulfamethoxazole (Bactrim Susp) 40 ml DAILY GTB ; Start 10/10/18 at 09:00 Zolpidem Tartrate (Ambien) 5 mg HS PRN PO INSOMNIA; Start 10/09/18 at 14:00 Miscellaneous Information 1 ea NOTE XX ; Start 10/09/18 at 15:00 Glucose (Glutose) 15 gm Q15M PRN PO DECREASED GLUCOSE; Start 10/09/18 at 15:00 Glucose (Glutose) 22.5 gm Q15M PRN PO DECREASED GLUCOSE; Start 10/09/18 at 15:00 Dextrose (D50w Syringe) 25 ml Q15M PRN IV DECREASED GLUCOSE; Start 10/09/18 at 15:00 Dextrose (D50w Syringe) 50 ml Q15M PRN IV DECREASED GLUCOSE; Start 10/09/18 at 15:00 Glucagon (Glucagen) 1 mg Q15M PRN IM DECREASED GLUCOSE; Start 10/09/18 at 15:00 Glucose (Glutose) 15 gm Q15M PRN BUCCAL DECREASED GLUCOSE; Start 10/09/18 at 15:00 Sodium Chloride 500 ml @ 500 mls/hr Q1H PRN IV BLOOD PRESSURE SUPPORT Last administered on 10/10/18at 07:59; Admin Dose 500 MLS/HR; Start 10/09/18 at 19:30 Piperacillin Sod/ Tazobactam Sod 100 ml @ 200 mls/hr Q6 IVPB Last administered on 10/10/18at 05:31; Admin Dose 200 MLS/HR; Start 10/09/18 at 20:00 Albuterol (Ventolin Hfa) 4 puff Q6H RESP THERAPY INH ; Start 10/10/18 at 02:00 Ipratropium [place] (Atrovent Hfa) 4 puff Q6H RESP THERAPY INH Last administered on 10/10/18at 07:32; Admin Dose 4 PUFF; Start 10/10/18 at 02:00 MARYANN HACKETT Oct 10, 2018 09:15
--- NOTE | 2018-10-10 14:02 | CONS ---
Assessment/Plan Assessment/Plan Hospital Course (Demo Recall) IMPRESSION: 1. Tachycardia at this time in the setting of fevers and respiratory distress, most consistent with sinus tachycardia likely driving this process. 2. Hypertension with borderline hypotension at this time. -still borderline Hotn 3. Abnormal electrocardiogram at baseline. 4. Chronic respiratory failure, status post tracheostomy.-weaning vent support 5. Dysphagia, status post G-tube. 6. Quadriplegia. 7. Renal insufficiency, on steroids. 8. Chronic obstructive pulmonary disease. 9. Rheumatoid arthritis. 10. Chronic kidney disease. 11. Diabetes mellitus. Recc -ICU -wean vent support as tolerated -Will decresae dose of BB given marginal BP to allow patient to possibly better tolerate -Follow volume status clsoely -Continue abx's and f/u cx data Consultation Date/Type/Reason Admit Date/Time Oct 09, 2018 at 12:16 Initial Consult Date 10/09/18 Type of Consult Cardiology Reason for Consultation tachycardia Requesting Provider: NOLA VIDAL MD Date/Time of Note DATE: 10/10/18 TIME: 13:59 Exam/Review of Systems Vital Signs Vitals Vital Signs Date Temp Pulse Resp B/P (MAP) Pulse Ox O2 O2 Flow FiO2 Time Delivery Rate 10/10/18 111 27 97 60 12:50 10/10/18 87/67 (74) Mechanical 11:00 Ventilator 10/10/18 98.0 08:00 Intake and Output 10/09/18 10/09/18 10/10/18 1515:00 23:00 07:00 IntakeIntake Total 0 ml 600 ml 100 ml OutputOutput Total 100 ml 380 ml 250 ml BalanceBalance -100 ml 220 ml -150 ml Exam Exam Review of Systems: CONSTITUTIONAL: No fevers, chills. PULMONARY: No sob CARDIOVASCULAR: No chest pain/palpitations GASTROINTESTINAL: No nausea/vomiting. GENITOURINARY: No hematuria/dysuria. MUSCULOSKELETAL: No myagias/arthalgias. PSYCHIATRIC: The patient denies depression. NEUROLOGIC: No weakness Constitutional: alert Psych: no complaints Head: normocephalic Neck: supple, jvd (9 cm water), other (trached) Respiratory: diminished breath sounds (at abses/B) Cardiovascular: regular rate and rhythm Gastrointestinal: soft, non-tender Musculoskeletal: muscle tone (generalized weakness) Extremities: edema (trace/B) Neurological: other (Quadriplegic) Labs Result Diagram: 10/10/18 0439 10/10/18 0439 Results 24hrs Laboratory Tests Test 10/09/18 15:28 10/09/18 20:09 10/10/18 01:06 10/10/18 04:39 Bedside Glucose 95 84 74 White Blood Count 18.6 #H Red Blood Count 3.19 L Hemoglobin 9.3 L Hematocrit 30.8 L Mean Corpuscular 96.6 Volume Mean Corpuscular 29.2 Hemoglobin Mean Corpuscular 30.2 L Hemoglobin Concen t Red Cell 16.3 H Distribution Width Platelet Count 366 Mean Platelet 11.6 H Volume Immature 1.900 H Granulocytes % Neutrophils % 63.9 Lymphocytes % 6.5 L Monocytes % 6.7 Eosinophils % 19.5 H Basophils % 1.5 Nucleated Red 0.0 Blood Cells % Immature 0.360 H Granulocytes # Neutrophils # 11.9 H Lymphocytes # 1.2 Monocytes # 1.2 H Eosinophils # 3.6 H Basophils # 0.3 H Nucleated Red 0.0 Blood Cells # Sodium Level 147 H Potassium Level 4.0 Chloride Level 104 Carbon Dioxide 36 H Level Anion Gap 7 Blood Urea 46 H Nitrogen Creatinine 0.96 Est Glomerular > 60 Filtrat Rate mL/min Glucose Level 70 # Calcium Level 11.1 H Phosphorus Level 4.8 Magnesium Level 2.5 Troponin I < 0.012 Test 10/10/18 06:59 10/10/18 07:00 10/10/18 07:58 Bedside Glucose 74 75 Blood Gas Blood arterial Specimen Source Arterial Blood 10/10/2018 9:29:5 Date Drawn 9 AM Arterial Blood pH 7.391 (Temp corrected) Arterial Blood 58.1 H pCO2 (Temp correct) Arterial Blood 101.3 H pO2 (Temp corrected) Arterial Blood 34.5 H HCO3 Arterial Blood 8.2 H Base Excess Arterial Blood 96.8 Oxygen Saturation [place] Test ACCEPTAB Arterial Blood Left Radial Gas Puncture Site Arterial 0.4 Blood Carboxyhemo globin Arterial Blood 0.3 Methemoglobin Blood Gas A-a O2 335.3 H Differential Oxyhemoglobin 96.1 Percent Blood Gas 37.0 Temperature Blood Gas 20.0 Respiration Rate Blood Gas Actual 26 Respiration Rate Blood Gas VENT - PC Modality FiO2 70.0 Blood Gas Low 10.0 PEEP Setting Blood Gas TM Notified Whom Blood Gas 10/10/2018 9:40:5 Notified Time 4 AM Medications Medications Current Medications Acetaminophen (Tylenol Liquid) 650 mg Q4H PRN GTB MILD PAIN(1-3)OR ELEVATED TEMP Last administered on 10/10/18at 03:10; Admin Dose 650 MG; Start 10/09/18 at 14:00 Al Hydrox/Mg Hydrox/Simethicone (Mag-Al Plus) 15 ml Q6H PRN PO GASTROINTESTINAL UPSET; Start 10/09/18 at 14:00 Alprazolam (Xanax) 0.5 mg Q6 PRN GTB ANXIETY; Start 10/09/18 at 14:00 Eye Lubricant (Artificial Tears Oph) 1 drop Q6H PRN BOTH EYES DRY EYES; Start 10/09/18 at 14:00 Bisacodyl (Dulcolax Supp) 10 mg DAILY PRN [place] CONSTIPATION; Start 10/09/18 at 14 :00 Clonidine (Catapres) 0.1 mg DAILY PRN GTB ELEVATED BLOOD PRESSURE; Start 10/09/18 at 14:00 Diltiazem HCl (Cardizem Iv) 5 mg Q4 PRN IV ELEVATED HEART RATE; Start 10/09/18 at 14:00 Diphenhydramine HCl (Benadryl Liquid Cup) 25 mg Q6 PRN GTB ITCHING; Start 10/09/18 at 14:00 Duloxetine HCl (Cymbalta) 30 mg DAILY PO Last administered on 10/10/18at 09:10; Admin Dose 30 MG; Start 10/10/18 at 09:00 Epoetin Arpan (Epogen (Esrd)) 10,000 units TuSa@1300 SC ; Start 10/11/18 at 13:00 Fentanyl (Duragesic 25 Mcg/Hr Patch) 1 patch Q72H TRANSDERM ; Start 10/11/18 at 15:00 Furosemide (Lasix) 40 mg DAILY IV ; Start 10/10/18 at 09:00 Gabapentin (Neurontin Liquid) 400 mg Q8 GTB Last administered on 10/10/18at 05:32; Admin Dose 400 MG; Start 10/09/18 at 15:30 Hydralazine HCl (Apresoline) 10 mg Q4H PRN IV ELEVATED BLOOD PRESSURE; Start 10/09/18 at 14:00 Hydrocortisone (Cortef) 10 mg DAILY PO Last administered on 10/10/18 09:08; Admin Dose 10 MG; Start 10/10/18 at 09:00 Hydrocortisone (Cortef) 5 mg 1500 PO Last administered on 10/09/18 15:43; Admin Dose 5 MG; Start 10/09/18 at 15:00 Hydrocortisone (Cortef) 2.5 mg QHS PO Last administered on 10/09/18 21:54; Admin Dose 2.5 MG; Start 10/09/18 at 21:00 Influenza Virus Vaccine Quadrival (Fluzone) 0.5 ml ONCE ONCE IM* ; Start 10/12/18 at 09:00; Stop 10/12/18 at 09:01 Hydromorphone HCl (Dilaudid) 4 mg Q4H PRN PO MODERATE PAIN LEVEL 4-6 Last admi nistered on 10/10/18 09:35; Admin Dose 4 MG; Start 10/09/18 at 14:00 Hydromorphone HCl (Dilaudid) 8 mg Q4H PRN PO SEVERE PAIN LEVEL 7-10 Last administered on 10/09/18 15:44; Admin Dose 8 MG; Start 10/09/18 at 14:00 Hydroxychloroquine Sulfate (Plaquenil) 200 mg BID PO Last administered on 10/10/18 09:10; Admin Dose 200 MG; Start 10/09/18 at 21:00 Diagnostic Test (Pha) (Accu-Chek) 1 ea 02 XX Last administered on 10/10/18 02:33; Admin Dose 1 EA; Start 10/10/18 at 02:00 Insulin Aspart (Novolog Insulin Pen) NOVOLOG *CUSTOM* ALGORITHM Q6H SC ; Start 10/09/18 at 14:00 Lactobacillus Acidophilus (Florajen3 Capsule) 1 each BID GTB Last administered on 10/10/18 09:07; Admin Dose 1 EACH; Start 10/09/18 at 21:00 Lansoprazole (Prevacid) 30 mg BID@06,18 GTB Last administered on 10/10/18 05:32; Admin Dose 30 MG; Start 10/09/18 at 18:00 Levetiracetam (Keppra Liquid) 500 mg BID GTB Last administered on 10/10/18 09:08; Admin Dose 500 MG; Start 10/09/18 at 21:00 Magnesium Oxide (Mag-Ox 400) 400 mg BID GTB Last administered on 10/10/18at 09:09; Admin Dose 400 MG; Start 10/09/18 at 21:00 Metoclopramide HCl (Reglan) 10 mg TID IV Last administered on 10/09/18at 21:58; Admin Dose 10 MG; Start 10/09/18 at 21:00 Metoprolol Tartrate (Lopressor) 50 mg BID GTB ; Start 10/09/18 at 21:00 Miconazole Nitrate (Miconazole 2% Cr) 1 applic BID TOP Last administered on 10/10/18at 09:10; Admin Dose 1 APPLIC; Start 10/09/18 at 21:00 Miconazole Nitrate (Miconazole 2% Cr) 1 applic Q12 PRN TOP rash; Start 10/09/18 at 14:00 Ondansetron HCl (Zofran Inj) 4 mg Q4H PRN IV NAUSEA AND/OR VOMITING Last administered on 10/09/18at 22:13; Admin Dose 4 MG; Start 10/09/18 at 14:00 Polyethylene Glycol (Miralax) 17 gm DAILY PRN GTB CONSTIPATION; Start 10/09/18 at 14:00 Potassium Chloride (Potassium Chloride Pwd/Soln) 20 meq DAILY GTB Last administered on 10/10/18at 09:09; Admin Dose 20 MEQ; Start 10/10/18 at 09:00 Senna (Senokot) 2 tab Q8 PRN PO CONSTIPATION; Start 10/09/18 at 14:00 Trimethoprim/ Sulfamethoxazole (Bactrim Susp) 40 ml DAILY GTB Last administered on 10/10/18at 09:08; Admin Dose 40 ML; Start 10/10/18 at 09:00 Zolpidem Tartrate (Ambien) 5 mg HS PRN PO INSOMNIA; Start 10/09/18 at 14:00 Miscellaneous Information 1 ea NOTE XX ; Start 10/09/18 at 15:00 Glucose (Glutose) 15 gm Q15M PRN PO DECREASED GLUCOSE; Start 10/09/18 at 15:00 Glucose (Glutose) 22.5 gm Q15M PRN PO DECREASED GLUCOSE; Start 10/09/18 at 15:00 Dextrose (D50w Syringe) 25 ml Q15M PRN IV DECREASED GLUCOSE; Start 10/09/18 at 15:00 Dextrose (D50w Syringe) 50 ml Q15M PRN IV DECREASED GLUCOSE; Start 10/09/18 at 15:00 Glucagon (Glucagen) 1 mg Q15M PRN IM DECREASED GLUCOSE; Start 10/09/18 at 15:00 Glucose (Glutose) 15 gm Q15M PRN BUCCAL DECREASED GLUCOSE; Start 10/09/18 at 15:00 Sodium Chloride 500 ml @ 500 mls/hr Q1H PRN IV BLOOD PRESSURE SUPPORT Last administered on 10/10/18at 07:59; Admin Dose 500 MLS/HR; Start 10/09/18 at 19:30 Piperacillin Sod/ Tazobactam Sod 100 ml @ 200 mls/hr Q6 IVPB Last administered on 10/10/18at 12:04; Admin Dose 200 MLS/HR; Start 10/09/18 at 20:00 Albuterol (Ventolin Hfa) 4 puff Q6H RESP THERAPY INH Last administered on 10/10/18at 12:48; Admin Dose 4 PUFF; Start 10/10/18 at 02:00 Ipratropium [place] (Atrovent Hfa) 4 puff Q6H RESP THERAPY INH Last administered on 10/10/18at 12:48; Admin Dose 4 PUFF; Start 10/10/18 at 02:00 BRISA HAQUE Oct 10, 2018 14:02
--- NOTE | 2018-10-10 14:21 | CONS ---
Assessment/Plan Assessment/Plan Hospital Course (Demo Recall) sepsis, respiratory - recurrent sepsis on 10/08/2018 due to possible aspiration pneumonia, HCAP - possible aspiration pneumonia - acute on chronic hypoxic and hypercarbic respiratory failure - persistent leukocytosis likely due to pneumonia, partly due to steroid margination - h/o tracheostomy on 08/26/2018 - h/o "Increased mild left apical pneumothorax" per CXR on 09/19/2018; no pneumothorax mentioned on subsequent CXR - h/o pneumomediastinum - h/o VAT on 08/11/2018 - h/o asthma/COPD exacerbation - h/o acute tracheobronchitis - h/o MAC infection but CT chest did not demonstrate features suggestive of this per chart review - h/o HCAP due to citrobacter, based on resp culture on 09/13/2018 - h/o aspergillus growing out of resp culture per (pulm note by Dr. Lopez) on 07/25/2018 - h/o elevated 1,3 [id number] level = 232 on 08/06/2018 - h/o MSSA septicemia GI - diarrhea, C diff on 10/09/2018 was negative - h/o HSV esophagitis, took acyclovir x21 days from 08/26/2018 - h/o EGD, esophageal biopsy showed esophageal squamous mucosa showing acute inflammation, granulation tissue, and ulceration consistent with ulcerative esophagitis, rare multinucleated cells with morphology suggestive of vial cytopathic changes, No cardiac mucosa, intestinal metaplasia, dysplasia, or malignancy defined - GERD - PUD renal/ - Hypokalemia, recurrent - CKD 2 - BPH cardiac - tachycardia, persistent - ACD - HTN - HLD endo - T2DM - Hgb A1c 7.2% - secondary adrenal insufficiency; steroid dependent - Hypoparathyroidism - Hypercalcemia - Pamidronate was ordered neuro - toxic metabolic encephalopathy - Cervical myopathy - Severe cervical spinal cord stenosis with cord compression from C3-C5, s/p laminectomy in ~03/2018 - Chronic pain syndrome - Functional quadriplegia - Seizure d/o other chronic conditions - RA with chronic steroid dependence - Immunocompromised status - Fibromyalgia rheumatica - DDD - H/o multiple rib fracture - Pt completed: meropenem (09/25/2018-10/02/2018), vancomycin (09/25/18-09/28/18) recommendations - pending results: cultures of blood (10/08/2018 x2, 10/09/2018 x2) and urine from 10/09/2018 (done at [facility]), resp culture (at [facility]) - continue pip/tazo (10/09/2018-) empirically - continue Bactrim for pneumocystis PPX - management d/w Pt's ARIANNA Monterroso the critical care time I took to care for this Pt today was from 1330 to 1400 Consultation Date/Type/Reason Admit Date/Time Oct 09, 2018 at 12:16 Initial Consult Date 10/09/18 Type of Consult ID Requesting Provider: NOLA VIDAL MD Date/Time of Note DATE: 10/10/18 TIME: 14:18 24 HR Interval Summary Subjective hx not possible: pt non-verbal (nearly) Detailed Summary Respiratory: shortness of breath Cardiovascular: No chest pain Gastrointestinal: nausea, other (+watery diarrhea); No vomiting Genitourinary: other (FC) Exam/Review of Systems Exam Vitals Vital Signs Date Temp Pulse Resp B/P (MAP) Pulse Ox O2 O2 Flow FiO2 Time Delivery Rate 10/10/18 111 27 97 60 12:50 10/10/18 87/67 (74) Mechanical 11:00 Ventilator 10/10/18 98.0 08:00 Intake and Output 10/09/18 10/09/18 10/10/18 1515:00 23:00 07:00 IntakeIntake Total 0 ml 600 ml 100 ml OutputOutput Total 100 ml 380 ml 250 ml BalanceBalance -100 ml 220 ml -150 ml Constitutional: frail Psych: confusion Head: normocephalic, atraumatic Eyes: nl conjunctiva, nl lids, nl sclera ENMT: other (dry mucus membranes) Neck: other (not swollen) Respiratory: diminished breath sounds Cardiovascular: other (tachycardic and regular); No edema Gastrointestinal: soft, non-tender, other (OEG) Genitourinary - Male: other (FC) Musculoskeletal: No swelling Extremities: normal pulses; No edema, No tenderness Neurological: lethargic Skin: No rash or lesions Results Result Diagram: 10/10/18 0439 10/10/18 0439 Results 24hrs Laboratory Tests Test 10/09/18 15:28 10/09/18 20:09 10/10/18 01:06 10/10/18 04:39 Bedside Glucose 95 84 74 White Blood Count 18.6 #H Red Blood Count 3.19 L Hemoglobin 9.3 L Hematocrit 30.8 L Mean Corpuscular 96.6 Volume Mean Corpuscular 29.2 Hemoglobin Mean Corpuscular 30.2 L Hemoglobin Concen t Red Cell 16.3 H Distribution Width Platelet Count 366 Mean Platelet 11.6 H Volume Immature 1.900 H Granulocytes % Neutrophils % 63.9 Lymphocytes % 6.5 L Monocytes % 6.7 Eosinophils % 19.5 H Basophils % 1.5 Nucleated Red 0.0 Blood Cells % Immature 0.360 H Granulocytes # Neutrophils # 11.9 H Lymphocytes # 1.2 Monocytes # 1.2 H Eosinophils # 3.6 H Basophils # 0.3 H Nucleated Red 0.0 Blood Cells # Sodium Level 147 H Potassium Level 4.0 Chloride Level 104 Carbon Dioxide 36 H Level Anion Gap 7 Blood Urea 46 H Nitrogen Creatinine 0.96 Est Glomerular > 60 Filtrat Rate mL/min Glucose Level 70 # Calcium Level 11.1 H Phosphorus Level 4.8 Magnesium Level 2.5 Troponin I < 0.012 Test 10/10/18 06:59 10/10/18 07:00 10/10/18 07:58 10/10/18 14:09 Bedside Glucose 74 75 72 Blood Gas Blood arterial Specimen Source Arterial Blood 10/10/2018 9:29:5 Date Drawn 9 AM Arterial Blood pH 7.391 (Temp corrected) Arterial Blood 58.1 H pCO2 (Temp correct) Arterial Blood 101.3 H pO2 (Temp corrected) Arterial Blood 34.5 H HCO3 Arterial Blood 8.2 H Base Excess Arterial Blood 96.8 Oxygen Saturation [place] Test ACCEPTAB Arterial Blood Left Radial Gas Puncture Site Arterial 0.4 Blood Carboxyhemo globin Arterial Blood 0.3 Methemoglobin Blood Gas A-a O2 335.3 H Differential Oxyhemoglobin 96.1 Percent Blood Gas 37.0 Temperature Blood Gas 20.0 Respiration Rate Blood Gas Actual 26 Respiration Rate Blood Gas VENT - PC Modality FiO2 70.0 Blood Gas Low 10.0 PEEP Setting Blood Gas TM Notified Whom Blood Gas 10/10/2018 9:40:5 Notified Time 4 AM Medications Medication Current Medications Acetaminophen (Tylenol Liquid) 650 mg Q4H PRN GTB MILD PAIN(1-3)OR ELEVATED TEMP Last administered on 10/10/18at 03:10; Admin Dose 650 MG; Start 10/09/18 at 14:00 Al Hydrox/Mg Hydrox/Simethicone (Mag-Al Plus) 15 ml Q6H PRN PO GASTROINTESTINAL UPSET; Start 10/09/18 at 14:00 Alprazolam (Xanax) 0.5 mg Q6 PRN GTB ANXIETY; Start 10/09/18 at 14:00 Eye Lubricant (Artificial Tears Oph) 1 drop Q6H PRN BOTH EYES DRY EYES; Start 10/09/18 at 14:00 Bisacodyl (Dulcolax Supp) [address] CONSTIPATION; Start 10/09/18 at 14:00 Clonidine (Catapres) 0.1 mg DAILY PRN GTB ELEVATED BLOOD PRESSURE; Start 10/09/18 at 14:00 Diltiazem HCl (Cardizem Iv) 5 mg Q4 PRN IV ELEVATED HEART RATE; Start 10/09/18 at 14:00 Diphenhydramine HCl (Benadryl Liquid Cup) 25 mg Q6 PRN GTB ITCHING; Start 10/09/18 at 14:00 Duloxetine HCl (Cymbalta) 30 mg DAILY PO Last administered on 10/10/18at 09:10; Admin Dose 30 MG; Start 10/10/18 at 09:00 Epoetin Arpan (Epogen (Esrd)) 10,000 units TuSa@1300 SC ; Start 10/11/18 at 13:00 Fentanyl (Duragesic 25 Mcg/Hr Patch) 1 patch Q72H TRANSDERM ; Start 10/11/18 at 15:00 Furosemide (Lasix) 40 mg DAILY IV ; Start 10/10/18 at 09:00 Gabapentin (Neurontin Liquid) 400 mg Q8 GTB Last administered on 10/10/18at 14:04; Admin Dose 400 MG; Start 10/09/18 at 15:30 Hydralazine HCl (Apresoline) 10 mg Q4H PRN IV ELEVATED BLOOD PRESSURE; Start 10/09/18 at 14:00 Hydrocortisone (Cortef) 10 mg DAILY PO Last administered on 10/10/18at 09:08; Admin Dose 10 MG; Start 10/10/18 at 09:00 Hydrocortisone (Cortef) 5 mg 1500 PO Last administered on 10/10/18at 14:03; Admin Dose 5 MG; Start 10/09/18 at 15:00 Hydrocortisone (Cortef) 2.5 mg QHS PO Last administered on 10/09/18 21:54; Admin Dose 2.5 MG; Start 10/09/18 at 21:00 Influenza Virus Vaccine Quadrival (Fluzone) 0.5 ml ONCE ONCE IM* ; Start 10/12/18 at 09:00; Stop 10/12/18 at 09:01 Hydromorphone HCl (Dilaudid) 4 mg Q4H PRN PO MODERATE PAIN LEVEL 4-6 Last administered on 10/10/18 14:03; Admin Dose 4 MG; Start 10/09/18 at 14:00 Hydromorphone HCl (Dilaudid) 8 mg Q4H PRN PO SEVERE PAIN LEVEL 7-10 Last administered on 10/09/18 15:44; Admin Dose 8 MG; Start 10/09/18 at 14:00 Hydroxychloroquine Sulfate (Plaquenil) 200 mg BID PO Last administered on 10/10/18 09:10; Admin Dose 200 MG; Start 10/09/18 at 21:00 Diagnostic Test (Pha) (Accu-Chek) 1 ea 02 XX Last administered on 10/10/18 02:33; Admin Dose 1 EA; Start 10/10/18 at 02:00 Insulin Aspart (Novolog Insulin Pen) NOVOLOG *CUSTOM* ALGORITHM Q6H SC ; Start 10/09/18 at 14:00 Lactobacillus Acidophilus (Florajen3 Capsule) 1 each BID GTB Last administered on 10/10/18 09:07; Admin Dose 1 EACH; Start 10/09/18 at 21:00 Lansoprazole (Prevacid) 30 mg BID@06,18 GTB Last administered on 10/10/18 05:32; Admin Dose 30 MG; Start 10/09/18 at 18:00 Levetiracetam (Keppra Liquid) 500 mg BID GTB Last administered on 10/10/18 09:08; Admin Dose 500 MG; Start 10/09/18 at 21:00 Magnesium Oxide (Mag-Ox 400) 400 mg BID GTB Last administered on 10/10/18 09:09; Admin Dose 400 MG; Start 10/09/18 at 21:00 Metoclopramide HCl (Reglan) 10 mg TID IV Last administered on 10/09/18at 21:58; Admin Dose 10 MG; Start 10/09/18 at 21:00 Miconazole Nitrate (Miconazole 2% Cr) 1 applic BID TOP Last administered on 10/10/18at 09:10; Admin Dose 1 APPLIC; Start 10/09/18 at 21:00 Miconazole Nitrate (Miconazole 2% Cr) 1 applic Q12 PRN TOP rash; Start 10/09/18 at 14:00 Ondansetron HCl (Zofran Inj) 4 mg Q4H PRN IV NAUSEA AND/OR VOMITING Last adm inistered on 10/09/18at 22:13; Admin Dose 4 MG; Start 10/09/18 at 14:00 Polyethylene Glycol (Miralax) 17 gm DAILY PRN GTB CONSTIPATION; Start 10/09/18 at 14:00 Potassium Chloride (Potassium Chloride Pwd/Soln) 20 meq DAILY GTB Last administered on 10/10/18at 09:09; Admin Dose 20 MEQ; Start 10/10/18 at 09:00 Senna (Senokot) 2 tab Q8 PRN PO CONSTIPATION; Start 10/09/18 at 14:00 Trimethoprim/ Sulfamethoxazole (Bactrim Susp) 40 ml DAILY GTB Last administered on 10/10/18at 09:08; Admin Dose 40 ML; Start 10/10/18 at 09:00 Zolpidem Tartrate (Ambien) 5 mg HS PRN PO INSOMNIA; Start 10/09/18 at 14:00 Miscellaneous Information 1 ea NOTE XX ; Start 10/09/18 at 15:00 Glucose (Glutose) 15 gm Q15M PRN PO DECREASED GLUCOSE; Start 10/09/18 at 15:00 Glucose (Glutose) 22.5 gm Q15M PRN PO DECREASED GLUCOSE; Start 10/09/18 at 15:00 Dextrose (D50w Syringe) 25 ml Q15M PRN IV DECREASED GLUCOSE; Start 10/09/18 at 15:00 Dextrose (D50w Syringe) 50 ml Q15M PRN IV DECREASED GLUCOSE; Start 10/09/18 at 15:00 Glucagon (Glucagen) 1 mg Q15M PRN IM DECREASED GLUCOSE; Start 10/09/18 at 15:00 Glucose (Glutose) 15 gm Q15M PRN BUCCAL DECREASED GLUCOSE; Start 10/09/18 at 15:00 Sodium Chloride 500 ml @ 500 mls/hr Q1H PRN IV BLOOD PRESSURE SUPPORT Last administered on 10/10/18at 07:59; Admin Dose 500 MLS/HR; Start 10/09/18 at 19:30 Piperacillin Sod/ Tazobactam Sod 100 ml @ 200 mls/hr Q6 IVPB Last administered on 10/10/18 12:04; Admin Dose 200 MLS/HR; Start 10/09/18 at 20:00 Albuterol (Ventolin Hfa) 4 puff Q6H RESP THERAPY INH Last administered on 10/10/18 12:48; Admin Dose 4 PUFF; Start 10/10/18 at 02:00 Ipratropium [place] (Atrovent Hfa) 4 puff Q6H RESP THERAPY INH Last administered on 10/10/18 12:48; Admin Dose 4 PUFF; Start 10/10/18 at 02:00 Atenolol (Tenormin) 12.5 mg BID PO ; Start 10/10/18 at 21:00 NEMO MARTINEZ M.D. Oct 10, 2018 14:21
[2018-10-10] MEDS: ALPRAZOLAM 0.5 MG TAB GTB PRN (17:14)
--- NOTE | 2018-10-10 17:14 | HP ---
Date/Time of Note Date/Time of Note DATE: 10/10/18 TIME: 17:01 Assessment/Plan VTE Prophylaxis Risk score (from [facility])>0 risk: 6 SCD applied (from [facility]): Yes SCD contraindicated: other Pharmacological prophylaxis: other Lines/Catheters IV Catheter Type (from [facility]): Mid Line Central line still needed: Yes Urinary Cath still in place: No Assessment/Plan Assessment/Plan - Tachycardia2/2 fevers and respiratory distress, most consistent with sinus tachycardia likely driving this process. -admit to ICU - per cardio - Leukocytosis and Febrile illness - per ID - Hypertension with borderline hypotension at this time. - per cardi - SP NS 500 ml X1 - Abnormal electrocardiogram at baseline. - Chronic respiratory failure, status post tracheostomy.-weaning vent support -per pulm-- vent support as tolerated - - Chronic obstructive pulmonary disease. - Diabetes mellitus -Glycemic control - Dysphagia, status post G-tube. - aspiration precautions - Quadriplegia. - Acute on Chronic Renal insufficiency, on steroids. - Rheumatoid arthritis. Patient seen in collaboration with Dr Rosales. staff Result Diagram: 10/10/18 0439 10/10/18 0439 Results 24hrs Laboratory Tests Test 10/09/18 20:09 10/10/18 01:06 10/10/18 04:39 10/10/18 06:59 Bedside Glucose 84 74 74 White Blood Count 18.6 #H Red Blood Count 3.19 L Hemoglobin 9.3 L Hematocrit 30.8 L Mean Corpuscular 96.6 Volume Mean Corpuscular 29.2 Hemoglobin Mean Corpuscular 30.2 L Hemoglobin Concen t Red Cell 16.3 H Distribution Width Platelet Count 366 Mean Platelet 11.6 H Volume Immature 1.900 H Granulocytes % Neutrophils % 63.9 Lymphocytes % 6.5 L Monocytes % 6.7 Eosinophils % 19.5 H Basophils % 1.5 Nucleated Red 0.0 Blood Cells % Immature 0.360 H Granulocytes # Neutrophils # 11.9 H Lymphocytes # 1.2 Monocytes # 1.2 H Eosinophils # 3.6 H Basophils # 0.3 H Nucleated Red 0.0 Blood Cells # Sodium Level 147 H Potassium Level 4.0 Chloride Level 104 Carbon Dioxide 36 H Level Anion Gap 7 Blood Urea 46 H Nitrogen Creatinine 0.96 Est Glomerular > 60 Filtrat Rate mL/min Glucose Level 70 # Calcium Level 11.1 H Phosphorus Level 4.8 Magnesium Level 2.5 Troponin I < 0.012 Test 10/10/18 07:00 10/10/18 07:58 10/10/18 14:09 Blood Gas Blood arterial Specimen Source Arterial Blood 10/10/2018 9:29:5 Date Drawn 9 AM Arterial Blood pH 7.391 (Temp corrected) Arterial Blood 58.1 H pCO2 (Temp correct) Arterial Blood 101.3 H pO2 (Temp corrected) Arterial Blood 34.5 H HCO3 Arterial Blood 8.2 H Base Excess Arterial Blood 96.8 Oxygen Saturation [place] Test ACCEPTAB Arterial Blood Left Radial Gas Puncture Site Arterial 0.4 Blood Carboxyhemo globin Arterial Blood 0.3 Methemoglobin Blood Gas A-a O2 335.3 H Differential Oxyhemoglobin 96.1 Percent Blood Gas 37.0 Temperature Blood Gas 20.0 Respiration Rate Blood Gas Actual 26 Respiration Rate Blood Gas VENT - PC Modality FiO2 70.0 Blood Gas Low 10.0 PEEP Setting Blood Gas TM Notified Whom Blood Gas 10/10/2018 9:40:5 Notified Time 4 AM Bedside Glucose 75 72 HPI/ROS Admit Date/Time Admit Date/Time Oct 09, 2018 at 12:16 Hx of Present Illness Mr. Quiroga is a 53-year-old male with a past history of outside hospitalization for respiratory distress; prolonged intubation, requiring placement of a tracheostomy; G-tube, quadriplegia, COPD . Patient had been treated at [facility]. Today patient was noted to have the onset of worsening hypoxia, increasing O2 requirements up to 100%. The patient has now been transferred to the ICU at [facility] for ongoing treatment and evaluation. Patient is admitted under Dr Rosales. Patient is seen in ICU. Patient is alert, eyes open, non verbal 2/2 trach. Seems comfortable. MEDICATIONS PRIOR AT [place]: Hydrocortisone for adrenal insufficiency Reglan DuoNebs. MEDICATIONS PRIOR TO ADMIT: 1. Hydrocodone. 2. Reglan. 3. DuoNeb. 4. Lasix. 5. Potassium. 6. Insulin. 7. Gabapentin. 8. Tylenol. 9. Clonidine. 10. Metoprolol 50 b.i.d. 11. Magnesium oxide. ALLERGIES: No known drug allergies. ROS Subjective hx not possible: pt non-verbal PMH/Family/Social Past Medical History SOCIAL HISTORY: No current tobacco, ETOH or illicit drug use. FAMILY HISTORY: No sudden cardiac or early CAD. Medical History: hypertension, renal disease, other (COPD, RA, spinal stenosis, neuropathy, cervical myelopathy with cervical radiculopathy, chronic pain syndrome, tracheobronchitis, fibromyalgia, MAC infection, anemia, chronic steroid therapy) Medications Current Medications Acetaminophen (Tylenol Liquid) 650 mg Q4H PRN GTB MILD PAIN(1-3)OR ELEVATED TEMP Last administered on 10/10/18at 03:10; Admin Dose 650 MG; Start 10/09/18 at 14:00 Al Hydrox/Mg Hydrox/Simethicone (Mag-Al Plus) 15 ml Q6H PRN PO GASTROINTESTINAL UPSET; Start 10/09/18 at 14:00 Alprazolam (Xanax) 0.5 mg Q6 PRN GTB ANXIETY; Start 10/09/18 at 14:00 Eye Lubricant (Artificial Tears Oph) 1 drop Q6H PRN BOTH EYES DRY EYES; Start 10/09/18 at 14:00 Bisacodyl (Dulcolax Supp) 10 mg DAILY PRN [place] CONSTIPATION; Start 10/09/18 at 14:00 Clonidine (Catapres) 0.1 mg DAILY PRN GTB ELEVATED BLOOD PRESSURE; Start 10/09/18 at 14:00 Diltiazem HCl (Cardizem Iv) 5 mg Q4 PRN IV ELEVATED HEART RATE; Start 10/09/18 at 14:00 Diphenhydramine HCl (Benadryl Liquid Cup) 25 mg Q6 PRN GTB ITCHING; Start 10/09/18 at 14:00 Duloxetine HCl (Cymbalta) 30 mg DAILY PO Last administered on 10/10/18at 09:10; Admin Dose 30 MG; Start 10/10/18 at 09:00 Epoetin Arpan (Epogen (Esrd)) 10,000 units TuSa@1300 SC ; Start 10/11/18 at 13:00 Fentanyl (Duragesic 25 Mcg/Hr Patch) 1 patch Q72H TRANSDERM ; Start 10/11/18 at 15:00 Furosemide (Lasix) 40 mg DAILY IV ; Start 10/10/18 at 09:00 Gabapentin (Neurontin Liquid) 400 mg Q8 GTB Last administered on 10/10/18at 14:04; Admin Dose 400 MG; Start 10/09/18 at 15:30 Hydralazine HCl (Apresoline) 10 mg Q4H PRN IV ELEVATED BLOOD PRESSURE; Start 10/09/18 at 14:00 Hydrocortisone (Cortef) 10 mg DAILY PO Last administered on 10/10/18 09:08; Ad min Dose 10 MG; Start 10/10/18 at 09:00 Hydrocortisone (Cortef) 5 mg 1500 PO Last administered on 10/10/18 14:03; Admin Dose 5 MG; Start 10/09/18 at 15:00 Hydrocortisone (Cortef) 2.5 mg QHS PO Last administered on 10/09/18 21:54; Admin Dose 2.5 MG; Start 10/09/18 at 21:00 Influenza Virus Vaccine Quadrival (Fluzone) 0.5 ml ONCE ONCE IM* ; Start 10/12/18 at 09:00; Stop 10/12/18 at 09:01 Hydromorphone HCl (Dilaudid) 4 mg Q4H PRN PO MODERATE PAIN LEVEL 4-6 Last administered on 10/10/18 14:03; Admin Dose 4 MG; Start 10/09/18 at 14:00 Hydromorphone HCl (Dilaudid) 8 mg Q4H PRN PO SEVERE PAIN LEVEL 7-10 Last administered on 10/09/18 15:44; Admin Dose 8 MG; Start 10/09/18 at 14:00 Hydroxychloroquine Sulfate (Plaquenil) 200 mg BID PO Last administered on 10/10/18 09:10; Admin Dose 200 MG; Start 10/09/18 at 21:00 Diagnostic Test (Pha) (Accu-Chek) 1 ea 02 XX Last administered on 10/10/18 02:33; Admin Dose 1 EA; Start 10/10/18 at 02:00 Insulin Aspart (Novolog Insulin Pen) NOVOLOG *CUSTOM* ALGORITHM Q6H SC ; Start 10/09/18 at 14:00 Lactobacillus Acidophilus (Florajen3 Capsule) 1 each BID GTB Last administered on 10/10/18 09:07; Admin Dose 1 EACH; Start 10/09/18 at 21:00 Lansoprazole (Prevacid) 30 mg BID@06,18 GTB Last administered on 10/10/18 05:32; Admin Dose 30 MG; Start 10/09/18 at 18:00 Levetiracetam (Keppra Liquid) 500 mg BID GTB Last administered on 10/10/18at 09:08; Admin Dose 500 MG; Start 10/09/18 at 21:00 Magnesium Oxide (Mag-Ox 400) 400 mg BID GTB Last administered on 10/10/18 09:09; Admin Dose 400 MG; Start 10/09/18 at 21:00 Metoclopramide HCl (Reglan) 10 mg TID IV Last administered on 10/09/18at 21:58; Admin Dose 10 MG; Start 10/09/18 at 21:00 Miconazole Nitrate (Miconazole 2% Cr) 1 applic BID TOP Last administered on 10/10/18 09:10; Admin Dose 1 APPLIC; Start 10/09/18 at 21:00 Miconazole Nitrate (Miconazole 2% Cr) 1 applic Q12 PRN TOP rash; Start 10/09/18 at 14:00 Ondansetron HCl (Zofran Inj) 4 mg Q4H PRN IV NAUSEA AND/OR VOMITING Last administered on 10/09/18at 22:13; Admin Dose 4 MG; Start 10/09/18 at 14:00 Polyethylene Glycol (Miralax) 17 gm DAILY PRN GTB CONSTIPATION; Start 10/09/18 at 14:00 Potassium Chloride (Potassium Chloride Pwd/Soln) 20 meq DAILY GTB Last administered on 10/10/18at 09:09; Admin Dose 20 MEQ; Start 10/10/18 at 09:00 Senna (Senokot) 2 tab Q8 PRN PO CONSTIPATION; Start 10/09/18 at 14:00 Trimethoprim/ Sulfamethoxazole (Bactrim Susp) 40 ml DAILY GTB Last administered on 10/10/18 09:08; Admin Dose 40 ML; Start 10/10/18 at 09:00 Zolpidem Tartrate (Ambien) 5 mg HS PRN PO INSOMNIA; Start 10/09/18 at 14:00 Miscellaneous Information 1 ea NOTE XX ; Start 10/09/18 at 15:00 Glucose (Glutose) 15 gm Q15M PRN PO DECREASED GLUCOSE; Start 10/09/18 at 15:00 Glucose (Glutose) 22.5 gm Q15M PRN PO DECREASED GLUCOSE; Start 10/09/18 at 15:00 Dextrose (D50w Syringe) 25 ml Q15M PRN IV DECREASED GLUCOSE; Start 10/09/18 at 15:00 Dextrose (D50w Syringe) 50 ml Q15M PRN IV DECREASED GLUCOSE; Start 10/09/18 at 15:00 Glucagon (Glucagen) 1 mg Q15M PRN IM DECREASED GLUCOSE; Start 10/09/18 at 15:00 Glucose (Glutose) 15 gm Q15M PRN BUCCAL DECREASED GLUCOSE; Start 10/09/18 at 15:00 Sodium Chloride 500 ml @ 500 mls/hr Q1H PRN IV BLOOD PRESSURE SUPPORT Last administered on 10/10/18at 07:59; Admin Dose 500 MLS/HR; Start 10/09/18 at 19:30 Piperacillin Sod/ Tazobactam Sod 100 ml @ 200 mls/hr Q6 IVPB Last administered on 10/10/18at 12:04; Admin Dose 200 MLS/HR; Start 10/09/18 at 20:00 Albuterol (Ventolin Hfa) 4 puff Q6H RESP THERAPY INH Last administered on 10/10/18at 12:48; Admin Dose 4 PUFF; Start 10/10/18 at 02:00 Ipratropium [place] (Atrovent Hfa) 4 puff Q6H RESP THERAPY INH Last administered on 10/10/18at 12:48; Admin Dose 4 PUFF; Start 10/10/18 at 02:00 Atenolol (Tenormin) 12.5 mg BID PO ; Start 10/10/18 at 21:00 Coded Allergies: No Known Allergy (Unverified , 09/16/18) Past Surgical History Past Surgical Hx: other (L shoulder surgery, L femur fracture ORIF, C3-C5 laminectomy with instrucmention from C3-C6, taract repair, EGD, colonoscopy, ERCP, I&D of thumb abscess, laser lithotripsy of nephrolithiasis) Social History Smoking Status: Never smoker Drug Use: none Exam/Review of Systems Vital Signs Vitals Vital Signs Date Temp Pulse Resp B/P (MAP) Pulse Ox O2 O2 Flow FiO2 Time Delivery Rate 10/10/18 117 24 97 60 16:25 10/10/18 87/67 (74) Mechanical 11:00 Ventilator 10/10/18 98.0 08:00 Intake and Output 10/09/18 10/09/18 10/10/18 1515:00 23:00 07:00 IntakeIntake Total 0 ml 600 ml 100 ml OutputOutput Total 100 ml 380 ml 250 ml BalanceBalance -100 ml 220 ml -150 ml Exam Constitutional: alert, well developed, non-verbal, frail Psych: nl mood/affect Eyes: EOMI, nl lids, nl sclera ENMT: nl external ears & nose Neck: non-tender, other (trach inatct) Respiratory: diminished breath sounds (bilaterally at bases) Cardiovascular: nl pulses, other (s1s2) Gastrointestinal: soft, non-tender, other (gt intact) Musculoskeletal: muscle weakness, range of motion Extremities: normal pulses Neurological: confused, other Skin: nl turgor Lymph: nontender TOMMY MARTELL Oct 10, 2018 17:12
[2018-10-10] MEDS: ATENOLOL 25 MG TAB PO SCH (21:53)
[2018-10-10] MEDS: BALSAM PERU/CASTOR OIL 60 GM TUBE TOP SCH (21:53)
[2018-10-11] VITALS (34 sets, daily range): BP systolic 86–114; BP diastolic 64–79; PULSE 94–106; RESP 16–30
[2018-10-11] MEDS: PIPER-TAZO 3.375 GM IV (PMX) 100 ML IVPB SCH ×5 (00:57→23:41)
[2018-10-11] MEDS: INSULIN ASPART [NOVOLOG] 3 ML PEN SC SCH ×4 (02:00→20:00)
[2018-10-11] MEDS: ACCU-CHEK XX SCH (02:00)
[2018-10-11] MEDS: ZOLPIDEM 5 MG TAB PO PRN (02:03)
[2018-10-11] MEDS: HYDROmorphONE 2 MG TAB PO PRN ×4 (02:04→14:54)
[2018-10-11] MEDS: IPRATROPIUM (HFA) 12.9 GM INHALER INH SCH ×4 (02:20→20:05)
[2018-10-11] MEDS: ALBUTEROL HFA 8 GM INHALER INH SCH ×4 (02:20→20:05)
[2018-10-11] MEDS: LANSOPRAZOLE 30 MG CAP GTB SCH ×2 (05:19→17:16)
[2018-10-11] MEDS: GABAPENTIN (50 MG/ML PO SYG) GTB SCH ×3 (05:19→22:24)
[2018-10-11] MEDS: ALPRAZOLAM 0.5 MG TAB GTB PRN ×2 (05:19→13:32)
--- NOTE | 2018-10-11 07:03 | CONS ---
DATE OF ADMISSION: 10/09/2018 DATE OF CONSULTATION: 10/10/2018 TYPE OF CONSULTATION: Pulmonary. REASON FOR CONSULTATION: Shortness of breath. Thank you, Dr. Rosales, for this consultation. HISTORY OF PRESENT ILLNESS: This is a 53-year-old gentleman with a history of respiratory failure re quiring tracheostomy, G-tube placement with ARDS, transferred to [facility] for cont inuing care. Here, he has had persistent hypoxemia, yesterday required transfer to intensive care [facility] for further monitoring. His course has been complicated by HSV esophagitis, toxic metabolic encep halopathy which is now resolving and diabetes mellitus. PAST MEDICAL HISTORY: Per chart he does have a history of microbacterium avium and aspergillosis. MEDICATIONS: Per chart. ALLERGIES: None. SOCIAL HISTORY: He is a nonsmoker, no alcohol, no history of drug use. FAMILY HISTORY: Noncontributory. SYSTEMS REVIEW: A 12-point review of systems was negative other than that mentioned above. PAST SURGICAL HISTORY: Includes cervical spinal stenosis with cord compression at C3-C5 with laminec jenny in 2018. Subsequent functional quadriplegia. REVIEW OF SYSTEMS: A 12-point review of systems was negative other than mentioned above. PHYSICAL EXAMINATION: GENERAL: Elderly-appearing gentleman, now awake, alert, oriented on mechanical ventilation. VITAL SIGNS: Currently afebrile, pulse is 100, blood pressure 87/67, O2 saturation 96%, FIO2 of 70%, now with a PEEP of 5. NECK: Trach site clean and intact. CARDIAC: S1, S2, no added sounds or murmurs. CHEST: Diminished air entry bilaterally. ABDOMEN: Soft, nontender. No guarding or rebound. EXTREMITIES: No cyanosis, clubbing or edema. NEUROLOGIC: Generalized weakness. LABORATORY DATA: White count 18.6, hemoglobin 9.3, platelets of 366. BUN 46, creatinine 0.96. ABG: pH 7.39, pCO2 of 58, pO2 of 101. IMPRESSION: 1. Acute on chronic hypoxemic respiratory failure with underlying acute respiratory distress syndrom e. 2. History of HSV esophagitis. 3. Chronic sepsis. 4. History of rheumatoid arthritis. 5. C-spine disease with functional quadriplegia. 6. Dysphagia with G-tube. PLAN: 1. Continue bronchodilators. 2. Pressure control ventilation. 3. Decrease FIO2 and PEEP as tolerated. 4. Bronchodilator treatment. 5. Deep vein thrombosis and gastrointestinal prophylaxis. Dictated By: DALTON DURBIN MD SV/EFREN Conf#: [id number] DID#: [id number] CC: NOLA ROSALES MD;*EndCC*
--- NOTE | 2018-10-11 07:56 | CONS ---
Assessment/Plan Assessment/Plan Hospital Course (Demo Recall) 53 yo male pt in [place] transferred to ICU for increased O2 demands Interval hx: On 60% FiO2. Unable to tolerate at 50% overnight. WBC are improving. Tolerating tube feeds. C diff negative. Rectal tube with brown liquid stool. 1. Respiratory failure secondary to pneumonia versus interstitial pneumonitis from rheumatoid arthritis versus mild aspiration. The patient was getting ice chips. There was no evidence of aspiration of formula. 2. Severe rheumatoid arthritis. 3. Quadriplegia. 4. Adrenal insufficiency. 5. Gastroparesis. 6. Hypothyroidism. 7. Chronic pain syndrome. 8. Hypertension. 9. Diarrhea PLAN: Stool cultures FOB Swallow eval Continue with tube feeds at 30cc/hr, check residuals q 4 hours Continue Reglan. Aspiration precautions Pt examined and plan of care discussed with DR Minaya Consultation Date/Type/Reason Admit Date/Time Oct 09, 2018 at 12:16 Initial Consult Date 10/09/18 Requesting Provider: NOLA VIDAL MD Date/Time of Note DATE: 10/11/18 TIME: 07:51 Exam/Review of Systems Exam Vitals Vital Signs Date Temp Pulse Resp B/P (MAP) Pulse Ox O2 O2 Flow FiO2 Time Delivery Rate 10/11/18 102 20 98 60 07:35 10/11/18 92/65 (74) Mechanical 06:00 Ventilator 10/11/18 98.6 00:00 Intake and Output 10/10/18 10/10/18 10/11/18 1414:59 22:59 06:59 IntakeIntake Total 700 ml 310 ml 340 ml OutputOutput Total 375 ml 1100 ml 500 ml BalanceBalance 325 ml -790 ml -160 ml Results Result Diagram: 10/11/18 0435 10/11/18 0435 Results 24hrs Laboratory Tests Test 10/10/18 07:58 10/10/18 14:09 10/10/18 21:52 10/11/18 01:57 Bedside Glucose 75 72 93 94 Test 10/11/18 04:35 White Blood Count 14.7 #H Red Blood Count 2.83 L Hemoglobin 8.2 L Hematocrit 27.5 L Mean Corpuscular 97.2 Volume Mean Corpuscular 29.0 Hemoglobin Mean Corpuscular 29.8 L Hemoglobin Concent Red Cell 16.1 H Distribution Width Platelet Count 368 Mean Platelet Volume 11.6 H Immature 0.100 Granulocytes % Neutrophils % 76.6 Lymphocytes % 9.2 L Monocytes % 11.7 H Eosinophils % 1.3 Basophils % 1.1 Nucleated Red Blood 0.0 Cells % Immature 0.020 Granulocytes # Neutrophils # 11.3 H Lymphocytes # 1.4 Monocytes # 1.7 H Eosinophils # 0.2 Basophils # 0.2 H Nucleated Red Blood 0.0 Cells # Sodium Level 151 H Potassium Level 3.6 Chloride Level 109 Carbon Dioxide Level 35 H Anion Gap 7 Blood Urea Nitrogen 40 H Creatinine 0.97 Est Glomerular > 60 Filtrat Rate mL/min Glucose Level 90 Calcium Level 10.1 Phosphorus Level 4.4 Magnesium Level 2.6 H Medications Medication Current Medications Acetaminophen (Tylenol Liquid) 650 mg Q4H PRN GTB MILD PAIN(1-3)OR ELEVATED TEMP Last administered on 10/10/18at 03:10; Admin Dose 650 MG; Start 10/09/18 at 14:00 Al Hydrox/Mg Hydrox/Simethicone (Mag-Al Plus) 15 ml Q6H PRN PO GASTROINTESTINAL UPSET; Start 10/09/18 at 14:00 Alprazolam (Xanax) 0.5 mg Q6 PRN GTB ANXIETY Last administered on 10/11/18at 05:19; Admin Dose 0.5 MG; Start 10/09/18 at 14:00 Eye Lubricant (Artificial Tears Oph) 1 drop Q6H PRN BOTH EYES DRY EYES; Start 10/09/18 at 14:00 Bisacodyl (Dulcolax Supp) 10 mg DAILY PRN [place] CONSTIPATION; Start 10/09/18 at 14:00 Clonidine (Catapres) 0.1 mg DAILY PRN GTB ELEVATED BLOOD PRESSURE; Start 10/09/18 at 14:00 Diltiazem HCl (Cardizem Iv) 5 mg Q4 PRN IV ELEVATED HEART RATE; Start 10/09/18 at 14:00 Diphenhydramine HCl (Benadryl Liquid Cup) 25 mg Q6 PRN GTB ITCHING; Start 10/09/18 at 14:00 Duloxetine HCl (Cymbalta) 30 mg DAILY PO Last administered on 10/10/18at 09:10; Admin Dose 30 MG; Start 10/10/18 at 09:00 Epoetin Arpan (Epogen (Esrd)) 10,000 units TuSa@1300 SC ; Start 10/11/18 at 13:00 Fentanyl (Duragesic 25 Mcg/Hr Patch) 1 patch Q72H TRANSDERM ; Start 10/11/18 at 15:00 Furosemide (Lasix) 40 mg DAILY IV ; Start 10/10/18 at 09:00 Gabapentin (Neurontin Liquid) 400 mg Q8 GTB Last administered on 10/11/18at 05:19; Admin Dose 400 MG; Start 10/09/18 at 15:30 Hydralazine HCl (Apresoline) 10 mg Q4H PRN IV ELEVATED BLOOD PRESSURE; Start 10/09/18 at 14:00 Hydrocortisone (Cortef) 10 mg DAILY PO Last administered on 10/10/18at 09:08; Admin Dose 10 MG; Start 10/10/18 at 09:00 Hydrocortisone (Cortef) 5 mg 1500 PO Last administered on 10/10/18at 14:03; Admin Dose 5 MG; Start 10/09/18 at 15:00 Hydrocortisone (Cortef) 2.5 mg QHS PO Last administered on 10/10/18at 21:54; Admin Dose 2.5 MG; Start 10/09/18 at 21:00 Influenza Virus Vaccine Quadrival (Fluzone) 0.5 ml ONCE ONCE IM* ; Start 10/12/18 at 09:00; Stop 10/12/18 at 09:01 Hydromorphone HCl (Dilaudid) 4 mg Q4H PRN PO MODERATE PAIN LEVEL 4-6 Last administered on 10/11/18at 06:32; Admin Dose 4 MG; Start 10/09/18 at 14:00 Hydromorphone HCl (Dilaudid) 8 mg Q4H PRN PO SEVERE PAIN LEVEL 7-10 Last administered on 10/09/18at 15:44; Admin Dose 8 MG; Start 10/09/18 at 14:00 Hydroxychloroquine Sulfate (Plaquenil) 200 mg BID PO Last administered on 10/10/18at 21:54; Admin Dose 200 MG; Start 10/09/18 at 21:00 Diagnostic Test (Pha) (Accu-Chek) 1 ea 02 XX Last administered on 10/11/18at 02:00; Admin Dose 1 EA; Start 10/10/18 at 02:00 Insulin Aspart (Novolog Insulin Pen) NOVOLOG *CUSTOM* ALGORITHM Q6H SC ; Start 10/09/18 at 14:00 Lactobacillus Acidophilus (Florajen3 Capsule) 1 each BID GTB Last administered on 10/10/18 21:53; Admin Dose 1 EACH; Start 10/09/18 at 21:00 Lansoprazole (Prevacid) 30 mg BID@06,18 GTB Last administered on 10/11/18 05:19; Admin Dose 30 MG; Start 10/09/18 at 18:00 Levetiracetam (Keppra Liquid) 500 mg BID GTB Last administered on 10/10/18 21:55; Admin Dose 500 MG; Start 10/09/18 at 21:00 Magnesium Oxide (Mag-Ox 400) 400 mg BID GTB Last administered on 10/10/18 21:55; Admin Dose 400 MG; Start 10/09/18 at 21:00 Metoclopramide HCl (Reglan) 10 mg TID IV Last administered on 10/10/18 21:54; Admin Dose 10 MG; Start 10/09/18 at 21:00 Miconazole Nitrate (Miconazole 2% Cr) 1 applic BID TOP Last administered on 10/10/18 21:54; Admin Dose 1 APPLIC; Start 10/09/18 at 21:00 Miconazole Nitrate (Miconazole 2% Cr) 1 applic Q12 PRN TOP rash; Start 10/09/18 at 14:00 Ondansetron HCl (Zofran Inj) 4 mg Q4H PRN IV NAUSEA AND/OR VOMITING Last administered on 10/09/18 22:13; Admin Dose 4 MG; Start 10/09/18 at 14:00 Polyethylene Glycol (Miralax) 17 gm DAILY PRN GTB CONSTIPATION; Start 10/09/18 at 14:00 Potassium Chloride (Potassium Chloride Pwd/Soln) 20 meq DAILY GTB Last administered on 10/10/18 09:09; Admin Dose 20 MEQ; Start 10/10/18 at 09:00 Senna (Senokot) 2 tab Q8 PRN PO CONSTIPATION; Start 10/09/18 at 14:00 Trimethoprim/ Sulfamethoxazole (Bactrim Susp) 40 ml DAILY GTB Last administered on 10/10/18 09:08; Admin Dose 40 ML; Start 10/10/18 at 09:00 Zolpidem Tartrate (Ambien) 5 mg HS PRN PO INSOMNIA Last administered on 10/11/18at 02:03; Admin Dose 5 MG; Start 10/09/18 at 14:00 Miscellaneous Information 1 ea NOTE XX ; Start 10/09/18 at 15:00 Glucose (Glutose) 15 gm Q15M PRN PO DECREASED GLUCOSE; Start 10/09/18 at 15:00 Glucose (Glutose) 22.5 gm Q15M PRN PO DECREASED GLUCOSE; Start 10/09/18 at 15:00 Dextrose (D50w Syringe) 25 ml Q15M PRN IV DECREASED GLUCOSE; Start 10/09/18 at 15:00 Dextrose (D50w Syringe) 50 ml Q15M PRN IV DECREASED GLUCOSE; Start 10/09/18 at 15:00 Glucagon (Glucagen) 1 mg Q15M PRN IM DECREASED GLUCOSE; Start 10/09/18 at 15:00 Glucose (Glutose) 15 gm Q15M PRN BUCCAL DECREASED GLUCOSE; Start 10/09/18 at 15:00 Sodium Chloride 500 ml @ 500 mls/hr Q1H PRN IV BLOOD PRESSURE SUPPORT Last administered on 10/10/18at 07:59; Admin Dose 500 MLS/HR; Start 10/09/18 at 19:30 Piperacillin Sod/ Tazobactam Sod 100 ml @ 200 mls/hr Q6 IVPB Last administered on 10/11/18at 05:19; Admin Dose 200 MLS/HR; Start 10/09/18 at 20:00 Albuterol (Ventolin Hfa) 4 puff Q6H RESP THERAPY INH Last administered on 10/11/18at 07:37; Admin Dose 4 PUFF; Start 10/10/18 at 02:00 Ipratropium [place] (Atrovent Hfa) 4 puff Q6H RESP THERAPY INH Last administered on 10/11/18at 07:37; Admin Dose 4 PUFF; Start 10/10/18 at 02:00 Atenolol (Tenormin) 12.5 mg BID PO Last administered on 10/10/18at 21:53; Admin Dose 12.5 MG; Start 10/10/18 at 21:00 MARYANN HACKETT Oct 11, 2018 07:56
[2018-10-11] MEDS: MICONAZOLE 2% 30 GM CR TOP SCH ×2 (08:07→20:31)
[2018-10-11] MEDS: BALSAM PERU/CASTOR OIL 60 GM TUBE TOP SCH ×2 (08:07→20:31)
[2018-10-11] MEDS: TRIMETHOPRIM/SULFAMETHOX (PO SYG) GTB SCH (08:38)
[2018-10-11] MEDS: LEVETIRACETAM (100 MG/ML) 5ML CUP GTB SCH ×2 (08:38→20:28)
[2018-10-11] MEDS: METOCLOPRAMIDE 10 MG INJ IV SCH ×3 (08:39→20:30)
[2018-10-11] MEDS: L ACIDOPHIL/B LACTIS/B LONGUM CAPSULE GTB SCH ×2 (08:39→20:29)
[2018-10-11] MEDS: POTASSIUM CHLORIDE 20 MEQ POWDER FOR ORAL SOLN GTB SCH (08:39)
[2018-10-11] MEDS: FUROSEMIDE 40 MG INJ IV SCH (08:39)
[2018-10-11] MEDS: HYDROCORTISONE 5 MG TAB PO SCH ×3 (08:39→20:29)
[2018-10-11] MEDS: DULOXETINE 30 MG CAP DR PO SCH (08:39)
[2018-10-11] MEDS: HYDROXYCHLOROQUINE 200 MG TAB PO SCH ×2 (08:40→20:30)
[2018-10-11] MEDS: MAGNESIUM OXIDE 400 MG TAB GTB SCH ×2 (08:40→20:43)
[2018-10-11] MEDS: ATENOLOL 25 MG TAB PO SCH ×2 (08:40→20:30)
--- NOTE | 2018-10-11 08:45 | CONS ---
Consult Date/Type/Reason Admit Date/Time Oct 09, 2018 at 12:16 Initial Consult Date 10/09/18 Requesting Provider: NOLA VIDAL MD Date/Time of Note DATE: 10/11/18 TIME: 08:43 Subjective No acute events - pt aware - pain Rx given - con't resp support. No CP now. ROS: No fever, no chills, no nausea, no vomiting, no diarrhea/constipation No recent weight changes No chest pain, no PND, no orthopnea + SOB chronic No dizziness, blurred vision No thirst, no heat or cold intolerance Objective Vitals Vital Signs Date Temp Pulse Resp B/P (MAP) Pulse Ox O2 O2 Flow FiO2 Time Delivery Rate 10/11/18 102 20 98 60 07:35 10/11/18 92/65 (74) Mechanical 06:00 Ventilator 10/11/18 98.6 00:00 Intake and Output 10/10/18 10/10/18 10/11/18 1515:00 23:00 07:00 IntakeIntake Total 700 ml 340 ml 310 ml OutputOutput Total 375 ml 1175 ml 425 ml BalanceBalance 325 ml -835 ml -115 ml Exam General: WN/WD/NAD, AOx 2-3 aware HEENT: Unicetric/atraumatic/EOMI (follow commands) NECK: trach Lymph: no lymphadenopathy HEART: regular with no S3, II/ systolic murmur at apex - tachy LUNGS: Coarse sounds ABD: soft, NT, ND, +BS : Intact Neuro: non focal SKIN: chronic changes EXT: trace edema Results/Medications Result Diagram: 10/11/185 10/11/18 0435 Results 24 hrs Laboratory Tests Test 10/10/18 14:09 10/10/18 21:52 10/11/18 01:57 10/11/18 04:35 Bedside Glucose 72 93 94 White Blood Count 14.7 #H Red Blood Count 2.83 L Hemoglobin 8.2 L Hematocrit 27.5 L Mean Corpuscular 97.2 Volume Mean Corpuscular 29.0 Hemoglobin Mean Corpuscular 29.8 L Hemoglobin Concen t Red Cell 16.1 H Distribution Width Platelet Count 368 Mean Platelet 11.6 H Volume Immature 0.100 Granulocytes % Neutrophils % 76.6 Lymphocytes % 9.2 L Monocytes % 11.7 H Eosinophils % 1.3 Basophils % 1.1 Nucleated Red 0.0 Blood Cells % Immature 0.020 Granulocytes # Neutrophils # 11.3 H Lymphocytes # 1.4 Monocytes # 1.7 H Eosinophils # 0.2 Basophils # 0.2 H Nucleated Red 0.0 Blood Cells # Sodium Level 151 H Potassium Level 3.6 Chloride Level 109 Carbon Dioxide 35 H Level Anion Gap 7 Blood Urea 40 H Nitrogen Creatinine 0.97 Est Glomerular > 60 Filtrat Rate mL/min Glucose Level 90 Calcium Level 10.1 Phosphorus Level 4.4 Magnesium Level 2.6 H Test 10/11/18 07:00 10/11/18 08:03 Blood Gas Blood arterial Specimen Source Arterial Blood 10/11/2018 7:24:5 Date Drawn 9 AM Arterial Blood pH 7.409 (Temp corrected) Arterial Blood 54.5 H pCO2 (Temp correct) Arterial Blood 99.2 pO2 (Temp corrected) Arterial Blood 33.7 H HCO3 Arterial Blood 8.0 H Base Excess Arterial Blood 96.7 Oxygen Saturation [place] Test ACCEPTAB Arterial Blood Left Radial Gas Puncture Site Arterial 1.1 Blood Carboxyhemo globin Arterial Blood 0.5 Methemoglobin Blood Gas A-a O2 268.7 H Differential Oxyhemoglobin 95.2 Percent Blood Gas 37.0 Temperature Blood Gas 20.0 Respiration Rate Blood Gas Actual 25 Respiration Rate Blood Gas VENT - PC Modality FiO2 60.0 Blood Gas Low 5.0 PEEP Setting Blood Gas TM Notified Whom Blood Gas 10/11/2018 7:54:3 Notified Time 8 AM Bedside Glucose 96 Medications Current Medications Acetaminophen (Tylenol Liquid) 650 mg Q4H PRN GTB MILD PAIN(1-3)OR ELEVATED TEMP Last administered on 10/10/18at 03:10; Admin Dose 650 MG; Start 10/09/18 at 14:00 Al Hydrox/Mg Hydrox/Simethicone (Mag-Al Plus) 15 ml Q6H PRN PO GASTROINTESTINAL UPSET; Start 10/09/18 at 14:00 Alprazolam (Xanax) 0.5 mg Q6 PRN GTB ANXIETY Last administered on 10/11/18at 05:19; Admin Dose 0.5 MG; Start 10/09/18 at 14:00 Eye Lubricant (Artificial Tears Oph) 1 drop Q6H PRN BOTH EYES DRY EYES; Start 10/09/18 at 14:00 Bisacodyl (Dulcolax Supp) 10 mg DAILY PRN [place] CONSTIPATION; Start 10/09/18 at 14:00 Clonidine (Catapres) 0.1 mg DAILY PRN GTB ELEVATED BLOOD PRESSURE; Start 10/09/18 at 14:00 Diltiazem HCl (Cardizem Iv) 5 mg Q4 PRN IV ELEVATED HEART RATE; Start 10/09/18 at 14:00 Diphenhydramine HCl (Benadryl Liquid Cup) 25 mg Q6 PRN GTB ITCHING; Start 10/09/18 at 14:00 Duloxetine HCl (Cymbalta) 30 mg DAILY PO Last administered on 10/11/18at 08:39; Admin Dose 30 MG; Start 10/10/18 at 09:00 Epoetin Arpan (Epogen (Esrd)) 10,000 units TuSa@1300 SC ; Start 10/11/18 at 13:00 Fentanyl (Duragesic 25 Mcg/Hr Patch) 1 patch Q72H TRANSDERM ; Start 10/11/18 at 15:00 Furosemide (Lasix) 40 mg DAILY IV Last administered on 10/11/18at 08:39; Admin Dose 40 MG; Start 10/10/18 at 09:00 Gabapentin (Neurontin Liquid) 400 mg Q8 GTB Last administered on 10/11/18at 0 5:19; Admin Dose 400 MG; Start 10/09/18 at 15:30 Hydralazine HCl (Apresoline) 10 mg Q4H PRN IV ELEVATED BLOOD PRESSURE; Start 10/09/18 at 14:00 Hydrocortisone (Cortef) 10 mg DAILY PO Last administered on 10/11/18at 08:39; Admin Dose 10 MG; Start 10/10/18 at 09:00 Hydrocortisone (Cortef) 5 mg 1500 PO Last administered on 10/10/18at 14:03; Admin Dose 5 MG; Start 10/09/18 at 15:00 Hydrocortisone (Cortef) 2.5 mg QHS PO Last administered on 10/10/18at 21:54; Admin Dose 2.5 MG; Start 10/09/18 at 21:00 Influenza Virus Vaccine Quadrival (Fluzone) 0.5 ml ONCE ONCE IM* ; Start 10/12/18 at 09:00; Stop 10/12/18 at 09:01 Hydromorphone HCl (Dilaudid) 4 mg Q4H PRN PO MODERATE PAIN LEVEL 4-6 Last administered on 10/11/18 06:32; Admin Dose 4 MG; Start 10/09/18 at 14:00 Hydromorphone HCl (Dilaudid) 8 mg Q4H PRN PO SEVERE PAIN LEVEL 7-10 Last administered on 10/09/18 15:44; Admin Dose 8 MG; Start 10/09/18 at 14:00 Hydroxychloroquine Sulfate (Plaquenil) 200 mg BID PO Last administered on 10/11/18 08:40; Admin Dose 200 MG; Start 10/09/18 at 21:00 Diagnostic Test (Pha) (Accu-Chek) 1 ea 02 XX Last administered on 10/11/18 02:00; Admin Dose 1 EA; Start 10/10/18 at 02:00 Insulin Aspart (Novolog Insulin Pen) NOVOLOG *CUSTOM* ALGORITHM Q6H SC ; Start 10/09/18 at 14:00 Lactobacillus Acidophilus (Florajen3 Capsule) 1 each BID GTB Last administered on 10/11/18 08:39; Admin Dose 1 EACH; Start 10/09/18 at 21:00 Lansoprazole (Prevacid) 30 mg BID@06,18 GTB Last administered on 10/11/18 05:19; Admin Dose 30 MG; Start 10/09/18 at 18:00 Levetiracetam (Keppra Liquid) 500 mg BID GTB Last administered on 10/11/18 08:38; Admin Dose 500 MG; Start 10/09/18 at 21:00 Magnesium Oxide (Mag-Ox 400) 400 mg BID GTB Last administered on 10/11/18 08:40; Admin Dose 400 MG; Start 10/09/18 at 21:00 Metoclopramide HCl (Reglan) 10 mg TID IV Last administered on 10/11/18 08:39; Admin Dose 10 MG; Start 10/09/18 at 21:00 Miconazole Nitrate (Miconazole 2% Cr) 1 applic BID TOP Last administered on 10/11/18 08:07; Admin Dose 1 APPLIC; Start 10/09/18 at 21:00 Miconazole Nitrate (Miconazole 2% Cr) 1 applic Q12 PRN TOP rash; Start 10/09/18 at 14:00 Ondansetron HCl (Zofran Inj) 4 mg Q4H PRN IV NAUSEA AND/OR VOMITING Last administered on 10/09/18at 22:13; Admin Dose 4 MG; Start 10/09/18 at 14:00 Polyethylene Glycol (Miralax) 17 gm DAILY PRN GTB CONSTIPATION; Start 10/09/18 at 14:00 Potassium Chloride (Potassium Chloride Pwd/Soln) 20 meq DAILY GTB Last administered on 10/11/18at 08:39; Admin Dose 20 MEQ; Start 10/10/18 at 09:00 Senna (Senokot) 2 tab Q8 PRN PO CONSTIPATION; Start 10/09/18 at 14:00 Trimethoprim/ Sulfamethoxazole (Bactrim Susp) 40 ml DAILY GTB Last administered on 10/11/18at 08:38; Admin Dose 40 ML; Start 10/10/18 at 09:00 Zolpidem Tartrate (Ambien) 5 mg HS PRN PO INSOMNIA Last administered on 10/11/18at 02:03; Admin Dose 5 MG; Start 10/09/18 at 14:00 Miscellaneous Information 1 ea NOTE XX ; Start 10/09/18 at 15:00 Glucose (Glutose) 15 gm Q15M PRN PO DECREASED GLUCOSE; Start 10/09/18 at 15:00 Glucose (Glutose) 22.5 gm Q15M PRN PO DECREASED GLUCOSE; Start 10/09/18 at 15:00 Dextrose (D50w Syringe) 25 ml Q15M PRN IV DECREASED GLUCOSE; Start 10/09/18 at 15:00 Dextrose (D50w Syringe) 50 ml Q15M PRN IV DECREASED GLUCOSE; Start 10/09/18 at 15:00 Glucagon (Glucagen) 1 mg Q15M PRN IM DECREASED GLUCOSE; Start 10/09/18 at 15:00 Glucose (Glutose) 15 gm Q15M PRN BUCCAL DECREASED GLUCOSE; Start 10/09/18 at 15:00 Sodium Chloride 500 ml @ 500 mls/hr Q1H PRN IV BLOOD PRESSURE SUPPORT Last administered on 10/10/18at 07:59; Admin Dose 500 MLS/HR; Start 10/09/18 at 19:30 Piperacillin Sod/ Tazobactam Sod 100 ml @ 200 mls/hr Q6 IVPB Last administered on 10/11/18at 05:19; Admin Dose 200 MLS/HR; Start 10/09/18 at 20:00 Albuterol (Ventolin Hfa) 4 puff Q6H RESP THERAPY INH Last administered on 10/11/18at 07:37; Admin Dose 4 PUFF; Start 10/10/18 at 02:00 Ipratropium [place] (Atrovent Hfa) 4 puff Q6H RESP THERAPY INH Last administered on 10/11/18at 07:37; Admin Dose 4 PUFF; Start 10/10/18 at 02:00 Atenolol (Tenormin) 12.5 mg BID PO Last administered on 10/11/18at 08:40; Admin Dose 12.5 MG; Start 10/10/18 at 21:00 Assessment/Plan Hospital Course (Demo Recall) 1. Tachycardia at this time in the setting of fevers and respiratory distress, most consistent with sinus tachycardia likely driving this process - better now, con't supportive Rx and pain management. 2. Hypertension with borderline hypotension at this time. -still borderline Hotn - no focal symptoms. Will monitor now. 3. Abnormal electrocardiogram at baseline. 4. Chronic respiratory failure, status post tracheostomy.-weaning vent support - con't resp Rx. 5. Dysphagia, status post G-tube. 6. Quadriplegia- skin care in pal[place]. 7. Renal insufficiency, on steroids- Cr 0.97 now. Stable. 8. Chronic obstructive pulmonary disease - con't resp Rx per pulmonary team. 9. Rheumatoid arthritis. 10. Chronic kidney disease. 11. Diabetes mellitus- on meds. VANESSA COOPER MD Oct 11, 2018 08:45
--- NOTE | 2018-10-11 11:31 | CONS ---
Consult Date/Type/Reason Admit Date/Time Oct 09, 2018 at 12:16 Initial Consult Date 10/09/18 Type of Consult Pulmonary Requesting Provider: NOLA VIDAL MD Date/Time of Note DATE: 10/11/18 TIME: 11:30 Subjective Patient comfortable this morning FiO2 of 60% PEEP of 5 remains awake and alert. Objective Vital Signs Date Temp Pulse Resp B/P (MAP) Pulse Ox O2 O2 Flow FiO2 Time Delivery Rate 10/11/18 95 22 97 50 11:01 10/11/18 92/65 (74) Mechanical 06:00 Ventilator 10/11/18 98.6 00:00 Intake and Output 10/10/18 10/10/18 10/11/18 1515:00 23:00 07:00 IntakeIntake Total 700 ml 340 ml 310 ml OutputOutput Total 375 ml 1175 ml 425 ml BalanceBalance 325 ml -835 ml -115 ml Exam PHYSICAL EXAMINATION: GENERAL: Elderly-appearing gentleman, now awake, alert, oriented on mechanical ventilation. VITAL SIGNS: NECK: Trach site clean and intact. CARDIAC: S1, S2, no added sounds or murmurs. CHEST: Diminished air entry bilaterally. ABDOMEN: Soft, nontender. No guarding or rebound. EXTREMITIES: No cyanosis, clubbing or edema. NEUROLOGIC: Generalized weakness. Vent Setting Ventilator Support Mode: AC, PC Fraction of Inspired Oxygen pe: 50 Positive End Expiratory Pressu: 5.0 Results/Medications Result Diagram: 10/11/18 0435 10/11/18 0435 Results 24 hrs Laboratory Tests Test 10/10/18 14:09 10/10/18 21:52 10/11/18 01:57 10/11/18 04:35 Bedside Glucose 72 93 94 White Blood Count 14.7 #H Red Blood Count 2.83 L Hemoglobin 8.2 L Hematocrit 27.5 L Mean Corpuscular 97.2 Volume Mean Corpuscular 29.0 Hemoglobin Mean Corpuscular 29.8 L Hemoglobin Concen t Red Cell 16.1 H Distribution Width Platelet Count 368 Mean Platelet 11.6 H Volume Immature 0.100 Granulocytes % Neutrophils % 76.6 Lymphocytes % 9.2 L Monocytes % 11.7 H Eosinophils % 1.3 Basophils % 1.1 Nucleated Red 0.0 Blood Cells % Immature 0.020 Granulocytes # Neutrophils # 11.3 H Lymphocytes # 1.4 Monocytes # 1.7 H Eosinophils # 0.2 Basophils # 0.2 H Nucleated Red 0.0 Blood Cells # Sodium Level 151 H Potassium Level 3.6 Chloride Level 109 Carbon Dioxide 35 H Level Anion Gap 7 Blood Urea 40 H Nitrogen Creatinine 0.97 Est Glomerular > 60 Filtrat Rate mL/min Glucose Level 90 Calcium Level 10.1 Phosphorus Level 4.4 Magnesium Level 2.6 H Test 10/11/18 07:00 10/11/18 08:03 Blood Gas Blood arterial Specimen Source Arterial Blood 10/11/2018 7:24:5 Date Drawn 9 AM Arterial Blood pH 7.409 (Temp corrected) Arterial Blood 54.5 H pCO2 (Temp correct) Arterial Blood 99.2 pO2 (Temp corrected) Arterial Blood 33.7 H HCO3 Arterial Blood 8.0 H Base Excess Arterial Blood 96.7 Oxygen Saturation [place] Test ACCEPTAB Arterial Blood Left Radial Gas Puncture Site Arterial 1.1 Blood Carboxyhemo globin Arterial Blood 0.5 Methemoglobin Blood Gas A-a O2 268.7 H Differential Oxyhemoglobin 95.2 Percent Blood Gas 37.0 Temperature Blood Gas 20.0 Respiration Rate Blood Gas Actual 25 Respiration Rate Blood Gas VENT - PC Modality FiO2 60.0 Blood Gas Low 5.0 PEEP Setting Blood Gas TM Notified Whom Blood Gas 10/11/2018 7:54:3 Notified Time 8 AM Bedside Glucose 96 Medications Current Medications Acetaminophen (Tylenol Liquid) 650 mg Q4H PRN GTB MILD PAIN(1-3)OR ELEVATED TEM P Last administered on 10/10/18at 03:10; Admin Dose 650 MG; Start 10/09/18 at 14:00 Al Hydrox/Mg Hydrox/Simethicone (Mag-Al Plus) 15 ml Q6H PRN PO GASTROINTESTINAL UPSET; Start 10/09/18 at 14:00 Alprazolam (Xanax) 0.5 mg Q6 PRN GTB ANXIETY Last administered on 10/11/18at 05:19; Admin Dose 0.5 MG; Start 10/09/18 at 14:00 Eye Lubricant (Artificial Tears Oph) 1 drop Q6H PRN BOTH EYES DRY EYES; Start 10/09/18 at 14:00 Bisacodyl (Dulcolax Supp) 10 mg DAILY PRN [place] CONSTIPATION; Start 10/09/18 at 14:00 Clonidine (Catapres) 0.1 mg DAILY PRN GTB ELEVATED BLOOD PRESSURE; Start 10/09/18 at 14:00 Diltiazem HCl (Cardizem Iv) 5 mg Q4 PRN IV ELEVATED HEART RATE; Start 10/09/18 at 14:00 Diphenhydramine HCl (Benadryl Liquid Cup) 25 mg Q6 PRN GTB ITCHING; Start 10/09/18 at 14:00 Duloxetine HCl (Cymbalta) 30 mg DAILY PO Last administered on 10/11/18at 08:39; Admin Dose 30 MG; Start 10/10/18 at 09:00 Epoetin Arpan (Epogen (Esrd)) 10,000 units TuSa@1300 SC ; Start 10/11/18 at 13:00 Fentanyl (Duragesic 25 Mcg/Hr Patch) 1 patch Q72H TRANSDERM ; Start 10/11/18 at 15:00 Furosemide (Lasix) 40 mg DAILY IV Last administered on 10/11/18at 08:39; Admin Dose 40 MG; Start 10/10/18 at 09:00 Gabapentin (Neurontin Liquid) 400 mg Q8 GTB Last administered on 10/11/18at 05:19; Admin Dose 400 MG; Start 10/09/18 at 15:30 Hydralazine HCl (Apresoline) 10 mg Q4H PRN IV ELEVATED BLOOD PRESSURE; Start 10/09/18 at 14:00 Hydrocortisone (Cortef) 10 mg DAILY PO Last administered on 10/11/18at 08:39; Admin Dose 10 MG; Start 10/10/18 at 09:00 Hydrocortisone (Cortef) 5 mg 1500 PO Last administered on 10/10/18at 14:03; A dmin Dose 5 MG; Start 10/09/18 at 15:00 Hydrocortisone (Cortef) 2.5 mg QHS PO Last administered on 10/10/18at 21:54; Admin Dose 2.5 MG; Start 10/09/18 at 21:00 Influenza Virus Vaccine Quadrival (Fluzone) 0.5 ml ONCE ONCE IM* ; Start 10/12/18 at 09:00; Stop 10/12/18 at 09:01 Hydromorphone HCl (Dilaudid) 4 mg Q4H PRN PO MODERATE PAIN LEVEL 4-6 Last administered on 10/11/18at 06:32; Admin Dose 4 MG; Start 10/09/18 at 14:00 Hydromorphone HCl (Dilaudid) 8 mg Q4H PRN PO SEVERE PAIN LEVEL 7-10 Last ad ministered on 10/11/18 10:16; Admin Dose 8 MG; Start 10/09/18 at 14:00 Hydroxychloroquine Sulfate (Plaquenil) 200 mg BID PO Last administered on 10/11/18 08:40; Admin Dose 200 MG; Start 10/09/18 at 21:00 Diagnostic Test (Pha) (Accu-Chek) 1 ea 02 XX Last administered on 10/11/18 02:00; Admin Dose 1 EA; Start 10/10/18 at 02:00 Insulin Aspart (Novolog Insulin Pen) NOVOLOG *CUSTOM* ALGORITHM Q6H SC ; Start 10/09/18 at 14:00 Lactobacillus Acidophilus (Florajen3 Capsule) 1 each BID GTB Last administered on 10/11/18 08:39; Admin Dose 1 EACH; Start 10/09/18 at 21:00 Lansoprazole (Prevacid) 30 mg BID@06,18 GTB Last administered on 10/11/18 05:19; Admin Dose 30 MG; Start 10/09/18 at 18:00 Levetiracetam (Keppra Liquid) 500 mg BID GTB Last administered on 10/11/18 08:38; Admin Dose 500 MG; Start 10/09/18 at 21:00 Magnesium Oxide (Mag-Ox 400) 400 mg BID GTB Last administered on 10/11/18 08:40; Admin Dose 400 MG; Start 10/09/18 at 21:00 Metoclopramide HCl (Reglan) 10 mg TID IV Last administered on 10/11/18 08:39; Admin Dose 10 MG; Start 10/09/18 at 21:00 Miconazole Nitrate (Miconazole 2% Cr) 1 applic BID TOP Last administered on 10/11/18 08:07; Admin Dose 1 APPLIC; Start 10/09/18 at 21:00 Miconazole Nitrate (Miconazole 2% Cr) 1 applic Q12 PRN TOP rash; Start 10/09/18 at 14:00 Ondansetron HCl (Zofran Inj) 4 mg Q4H PRN IV NAUSEA AND/OR VOMITING Last administered on 2/24/19at 22:13; Admin Dose 4 MG; Start 10/09/18 at 14:00 Polyethylene Glycol (Miralax) 17 gm DAILY PRN GTB CONSTIPATION; Start 10/09/18 at 14:00 Potassium Chloride (Potassium Chloride Pwd/Soln) 20 meq DAILY GTB Last administered on 10/11/18at 08:39; Admin Dose 20 MEQ; Start 10/10/18 at 09:00 Senna (Senokot) 2 tab Q8 PRN PO CONSTIPATION; Start 10/09/18 at 14:00 Trimethoprim/ Sulfamethoxazole (Bactrim Susp) 40 ml DAILY GTB Last administered on 10/11/18at 08:38; Admin Dose 40 ML; Start 10/10/18 at 09:00 Zolpidem Tartrate (Ambien) 5 mg HS PRN PO INSOMNIA Last administered on 10/11/18at 02:03; Admin Dose 5 MG; Start 10/09/18 at 14:00 Miscellaneous Information 1 ea NOTE XX ; Start 10/09/18 at 15:00 Glucose (Glutose) 15 gm Q15M PRN PO DECREASED GLUCOSE; Start 10/09/18 at 15:00 Glucose (Glutose) 22.5 gm Q15M PRN PO DECREASED GLUCOSE; Start 10/09/18 at 15:00 Dextrose (D50w Syringe) 25 ml Q15M PRN IV DECREASED GLUCOSE; Start 10/09/18 at 15:00 Dextrose (D50w Syringe) 50 ml Q15M PRN IV DECREASED GLUCOSE; Start 10/09/18 at 15:00 Glucagon (Glucagen) 1 mg Q15M PRN IM DECREASED GLUCOSE; Start 10/09/18 at 15:00 Glucose (Glutose) 15 gm Q15M PRN BUCCAL DECREASED GLUCOSE; Start 10/09/18 at 15:00 Sodium Chloride 500 ml @ 500 mls/hr Q1H PRN IV BLOOD PRESSURE SUPPORT Last administered on 10/10/18at 07:59; Admin Dose 500 MLS/HR; Start 10/09/18 at 19:30 Piperacillin Sod/ Tazobactam Sod 100 ml @ 200 mls/hr Q6 IVPB Last administered on 10/11/18at 05:19; Admin Dose 200 MLS/HR; Start 10/09/18 at 20:00 Albuterol (Ventolin Hfa) 4 puff Q6H RESP THERAPY INH Last administered on 10/11/18 07:37; Admin Dose 4 PUFF; Start 10/10/18 at 02:00 Ipratropium [place] (Atrovent Hfa) 4 puff Q6H RESP THERAPY INH Last administered on 10/11/18at 07:37; Admin Dose 4 PUFF; Start 10/10/18 at 02:00 Atenolol (Tenormin) 12.5 mg BID PO Last administered on 10/11/18 08:40; Admin Dose 12.5 MG; Start 10/10/18 at 21:00 Assessment/Plan Hospital Course (Demo Recall) IMPRESSION: 1. Acute on chronic hypoxemic respiratory failure with underlying acute respiratory distress syndrome. 2. History of HSV esophagitis. 3. Chronic sepsis. 4. History of rheumatoid arthritis. 5. C-spine disease with functional quadriplegia. 6. Dysphagia with G-tube. PLAN: 1. Continue bronchodilators. 2. Pressure control ventilation. 3. Decrease FIO2 and PEEP as tolerated. FiO2 is 60% PEEP of 5 4. Bronchodilator treatment. 5. Deep vein thrombosis and gastrointestinal prophylaxis. Anticipate transfer back to [facility] tomorrow. DALTON DURBIN MD, [facility] Oct 11, 2018 11:31
--- NOTE | 2018-10-11 12:30 | CONS ---
Assessment/Plan Assessment/Plan Hospital Course (Demo Recall) # sepsis, respiratory - recurrent sepsis on 10/08/2018 due to possible aspiration pneumonia, HCAP - possible aspiration pneumonia - acute on chronic hypoxic and hypercarbic respiratory failure - persistent leukocytosis likely due to pneumonia, partly due to steroid margination - h/o tracheostomy on 08/26/2018 - h/o "Increased mild left apical pneumothorax" per CXR on 09/19/2018; no pneumothorax mentioned on subsequent CXR - h/o pneumomediastinum - h/o VAT on 08/11/2018 - h/o asthma/COPD exacerbation - h/o acute tracheobronchitis - h/o MAC infection but CT chest did not demonstrate features suggestive of this per chart review - h/o HCAP due to citrobacter, based on resp culture on 09/13/2018 - h/o aspergillus growing out of resp culture per (pulm note by Dr. Lopez) on 07/25/2018 - h/o elevated 1,3 [id number] level = 232 on 08/06/2018 - h/o MSSA septicemia # GI - diarrhea, C diff on 10/09/2018 was negative - h/o HSV esophagitis, took acyclovir x21 days from 08/26/2018 - h/o EGD, esophageal biopsy showed esophageal squamous mucosa showing acute inflammation, granulation tissue, and ulceration consistent with ulcerative esophagitis, rare multinucleated cells with morphology suggestive of vial cytopathic changes, No cardiac mucosa, intestinal metaplasia, dysplasia, or fabian gnancy defined - GERD - PUD # renal/ - Hypokalemia, recurrent - CKD 2 - BPH # cardiac - tachycardia, persistent - ACD - HTN - HLD # endo - T2DM - Hgb A1c 7.2% - secondary adrenal insufficiency; steroid dependent - Hypoparathyroidism - Hypercalcemia - Pamidronate was ordered # neuro - toxic metabolic encephalopathy - Cervical myopathy - Severe cervical spinal cord stenosis with cord compression from C3-C5, s/p laminectomy in ~03/2018 - Chronic pain syndrome - Functional quadriplegia - Seizure d/o # other chronic conditions - RA with chronic steroid dependence - Immunocompromised status - Fibromyalgia rheumatica - DDD - H/o multiple rib fracture - Pt completed: meropenem (09/25/2018-10/02/2018), vancomycin (09/25/18-09/28/18) recommendations - pending results: cultures of blood (10/08/2018 x2, 10/09/2018 x2) and urine from 10/09/2018 (done at [facility]), resp culture (gram negative bacteria at [facility]) - continue pip/tazo (10/09/2018-) empirically - continue Bactrim for pneumocystis PPX - management d/w Pt's RN Markus the critical care time I took to care for this Pt today was from 1145 to 1215 Consultation Date/Type/Reason Admit Date/Time Oct 09, 2018 at 12:16 Initial Consult Date 10/09/18 Type of Consult ID Requesting Provider: NOLA VIDAL MD Date/Time of Note DATE: 10/11/18 TIME: 12:27 24 HR Interval Summary Subjective hx not possible: pt critical, pt critical status, other (lethargic and limited) Constitutional: requiring O2 Detailed Summary Respiratory: No shortness of breath Cardiovascular: no complaints Gastrointestinal: no complaints Genitourinary: other (FC) Musculoskeletal: no complaints, other (Pt denied myalgia although Pt said "lot of pain" to his RN) Neurologic: No headache Exam/Review of Systems Exam Vitals Vital Signs Date Temp Pulse Resp B/P (MAP) Pulse Ox O2 O2 Flow FiO2 Time Delivery Rate 10/11/18 95 22 97 50 11:01 10/11/18 95/71 (79) Mechanical 11:00 Ventilator 10/11/18 97.5 08:00 Intake and Output 10/10/18 10/10/18 10/11/18 1515:00 23:00 07:00 IntakeIntake Total 700 ml 340 ml 310 ml OutputOutput Total 375 ml 1175 ml 425 ml BalanceBalance 325 ml -835 ml -115 ml Constitutional: frail Psych: no complaints Head: normocephalic, atraumatic Eyes: nl conjunctiva, nl lids ENMT: nl external ears & nose, nl nasal mucosa & septum Neck: other (trach) Respiratory: crackles/rales Cardiovascular: regular rate and rhythm, nl pulses, edema (UEs) Gastrointestinal: soft, non-tender, other (PEG); No tender Genitourinary - Male: other (FC) Musculoskeletal: No swelling Extremities: edema (UEs); No calf tenderness Neurological: lethargic Skin: ecchymosis Results Result Diagram: 10/11/18 0435 10/11/18 0435 Results 24hrs Laboratory Tests Test 10/10/18 14:09 10/10/18 21:52 10/11/18 01:57 10/11/18 04:35 Bedside Glucose 72 93 94 White Blood Count 14.7 #H Red Blood Count 2.83 L Hemoglobin 8.2 L Hematocrit 27.5 L Mean Corpuscular 97.2 Volume Mean Corpuscular 29.0 Hemoglobin Mean Corpuscular 29.8 L Hemoglobin Concen t Red Cell 16.1 H Distribution Width Platelet Count 368 Mean Platelet 11.6 H Volume Immature 0.100 Granulocytes % Neutrophils % 76.6 Lymphocytes % 9.2 L Monocytes % 11.7 H Eosinophils % 1.3 Basophils % 1.1 Nucleated Red 0.0 Blood Cells % Immature 0.020 Granulocytes # Neutrophils # 11.3 H Lymphocytes # 1.4 Monocytes # 1.7 H Eosinophils # 0.2 Basophils # 0.2 H Nucleated Red 0.0 Blood Cells # Sodium Level 151 H Potassium Level 3.6 Chloride Level 109 Carbon Dioxide 35 H Level Anion Gap 7 Blood Urea 40 H Nitrogen Creatinine 0.97 Est Glomerular > 60 Filtrat Rate mL/min Glucose Level 90 Calcium Level 10.1 Phosphorus Level 4.4 Magnesium Level 2.6 H Test 10/11/18 07:00 10/11/18 08:03 Blood Gas Blood arterial Specimen Source Arterial Blood 10/11/2018 7:24:5 Date Drawn 9 AM Arterial Blood pH 7.409 (Temp corrected) Arterial Blood 54.5 H pCO2 (Temp correct) Arterial Blood 99.2 pO2 (Temp corrected) Arterial Blood 33.7 H HCO3 Arterial Blood 8.0 H Base Excess Arterial Blood 96.7 Oxygen Saturation [place] Test ACCEPTAB Arterial Blood Left Radial Gas Puncture Site Arterial 1.1 Blood Carboxyhemo globin Arterial Blood 0.5 Methemoglobin Blood Gas A-a O2 268.7 H Differential Oxyhemoglobin 95.2 Percent Blood Gas 37.0 Temperature Blood Gas 20.0 Respiration Rate Blood Gas Actual 25 Respiration Rate Blood Gas VENT - PC Modality FiO2 60.0 Blood Gas Low 5.0 PEEP Setting Blood Gas TM Notified Whom Blood Gas 10/11/2018 7:54:3 Notified Time 8 AM Bedside Glucose 96 Medications Medication Current Medications Acetaminophen (Tylenol Liquid) 650 mg Q4H PRN GTB MILD PAIN(1-3)OR ELEVATED TEMP Last administered on 10/10/18at 03:10; Admin Dose 650 MG; Start 10/09/18 at 14:00 Al Hydrox/Mg Hydrox/Simethicone (Mag-Al Plus) 15 ml Q6H PRN PO GASTROINTESTINAL UPSET; Start 10/09/18 at 14:00 Alprazolam (Xanax) 0.5 mg Q6 PRN GTB ANXIETY Last administered on 10/11/18at 05:19; Admin Dose 0.5 MG; Start 10/09/18 at 14:00 Eye Lubricant (Artificial Tears Oph) 1 drop Q6H PRN BOTH EYES DRY EYES; Start 10/09/18 at 14:00 Bisacodyl (Dulcolax Supp) 10 mg DAILY PRN [place] CONSTIPATION; Start 10/09/18 at 14:00 Clonidine (Catapres) 0.1 mg DAILY PRN GTB ELEVATED BLOOD PRESSURE; Start 10/09/18 at 14:00 Diltiazem HCl (Cardizem Iv) 5 mg Q4 PRN IV ELEVATED HEART RATE; Start 10/09/18 at 14:00 Diphenhydramine HCl (Benadryl Liquid Cup) 25 mg Q6 PRN GTB ITCHING; Start 10/09/18 at 14:00 Duloxetine HCl (Cymbalta) 30 mg DAILY PO Last administered on 10/11/18at 08:39; Admin Dose 30 MG; Start 10/10/18 at 09:00 Epoetin Arpan (Epogen (Esrd)) 10,000 units TuSa@1300 SC ; Start 10/11/18 at 13:00 Fentanyl (Duragesic 25 Mcg/Hr Patch) 1 patch Q72H TRANSDERM ; Start 10/11/18 at 15:00 Furosemide (Lasix) 40 mg DAILY IV Last administered on 10/11/18at 08:39; Admin Dose 40 MG; Start 10/10/18 at 09:00 Gabapentin (Neurontin Liquid) 400 mg Q8 GTB Last administered on 10/11/18at 05:19; Admin Dose 400 MG; Start 10/09/18 at 15:30 Hydralazine HCl (Apresoline) 10 mg Q4H PRN IV ELEVATED BLOOD PRESSURE; Start 10/09/18 at 14:00 Hydrocortisone (Cortef) 10 mg DAILY PO Last administered on 10/11/18 08:39; Admin Dose 10 MG; Start 10/10/18 at 09:00 Hydrocortisone (Cortef) 5 mg 1500 PO Last administered on 10/10/18 14:03; Admin Dose 5 MG; Start 10/09/18 at 15:00 Hydrocortisone (Cortef) 2.5 mg QHS PO Last administered on 10/10/18 21:54; Admin Dose 2.5 MG; Start 10/09/18 at 21:00 Influenza Virus Vaccine Quadrival (Fluzone) 0.5 ml ONCE ONCE IM* ; Start 10/12/18 at 09:00; Stop 10/12/18 at 09:01 Hydromorphone HCl (Dilaudid) 4 mg Q4H PRN PO MODERATE PAIN LEVEL 4-6 Last administered on 10/11/18 06:32; Admin Dose 4 MG; Start 10/09/18 at 14:00 Hydromorphone HCl (Dilaudid) 8 mg Q4H PRN PO SEVERE PAIN LEVEL 7-10 Last administered on 10/11/18 10:16; Admin Dose 8 MG; Start 10/09/18 at 14:00 Hydroxychloroquine Sulfate (Plaquenil) 200 mg BID PO Last administered on 10/11/18 08:40; Admin Dose 200 MG; Start 10/09/18 at 21:00 Diagnostic Test (Pha) (Accu-Chek) 1 ea 02 XX Last administered on 10/11/18at 02:00; Admin Dose 1 EA; Start 10/10/18 at 02:00 Insulin Aspart (Novolog Insulin Pen) NOVOLOG *CUSTOM* ALGORITHM Q6H SC ; Start 10/09/18 at 14:00 Lactobacillus Acidophilus (Florajen3 Capsule) 1 each BID GTB Last administered on 10/11/18 08:39; Admin Dose 1 EACH; Start 10/09/18 at 21:00 Lansoprazole (Prevacid) 30 mg BID@06,18 GTB Last administered on 10/11/18 05:19; Admin Dose 30 MG; Start 10/09/18 at 18:00 Levetiracetam (Keppra Liquid) 500 mg BID GTB Last administered on 10/11/18 08:38; Admin Dose 500 MG; Start 10/09/18 at 21:00 Magnesium Oxide (Mag-Ox 400) 400 mg BID GTB Last administered on 10/11/18at 08:40; Admin Dose 400 MG; Start 10/09/18 at 21:00 Metoclopramide HCl (Reglan) 10 mg TID IV Last administered on 10/11/18at 08:39; Admin Dose 10 MG; Start 10/09/18 at 21:00 Miconazole Nitrate (Miconazole 2% Cr) 1 applic BID TOP Last administered on 10/11/18at 08:07; Admin Dose 1 APPLIC; Start 10/09/18 at 21:00 Miconazole Nitrate (Miconazole 2% Cr) 1 applic Q12 PRN TOP rash; Start 10/09/18 at 14:00 Ondansetron HCl (Zofran Inj) 4 mg Q4H PRN IV NAUSEA AND/OR VOMITING Last administered on 10/09/18at 22:13; Admin Dose 4 MG; Start 10/09/18 at 14:00 Polyethylene Glycol (Miralax) 17 gm DAILY PRN GTB CONSTIPATION; Start 10/09/18 at 14:00 Potassium Chloride (Potassium Chloride Pwd/Soln) 20 meq DAILY GTB Last administered on 10/11/18at 08:39; Admin Dose 20 MEQ; Start 10/10/18 at 09:00 Senna (Senokot) 2 tab Q8 PRN PO CONSTIPATION; Start 10/09/18 at 14:00 Trimethoprim/ Sulfamethoxazole (Bactrim Susp) 40 ml DAILY GTB Last administered on 10/11/18at 08:38; Admin Dose 40 ML; Start 10/10/18 at 09:00 Zolpidem Tartrate (Ambien) 5 mg HS PRN PO INSOMNIA Last administered on 10/11/18at 02:03; Admin Dose 5 MG; Start 10/09/18 at 14:00 Miscellaneous Information 1 ea NOTE XX ; Start 10/09/18 at 15:00 Glucose (Glutose) 15 gm Q15M PRN PO DECREASED GLUCOSE; Start 10/09/18 at 15:00 Glucose (Glutose) 22.5 gm Q15M PRN PO DECREASED GLUCOSE; Start 10/09/18 at 15:00 Dextrose (D50w Syringe) 25 ml Q15M PRN IV DECREASED GLUCOSE; Start 10/09/18 at 15:00 Dextrose (D50w Syringe) 50 ml Q15M PRN IV DECREASED GLUCOSE; Start 10/09/18 at 15:00 Glucagon (Glucagen) 1 mg Q15M PRN IM DECREASED GLUCOSE; Start 10/09/18 at 15:00 Glucose (Glutose) 15 gm Q15M PRN BUCCAL DECREASED GLUCOSE; Start 10/09/18 at 15:00 Sodium Chloride 500 ml @ 500 mls/hr Q1H PRN IV BLOOD PRESSURE SUPPORT Last administered on 10/10/18at 07:59; Admin Dose 500 MLS/HR; Start 10/09/18 at 19:30 Piperacillin Sod/ Tazobactam Sod 100 ml @ 200 mls/hr Q6 IVPB Last administered on 10/11/18at 12:21; Admin Dose 200 MLS/HR; Start 10/09/18 at 20:00 Albuterol (Ventolin Hfa) 4 puff Q6H RESP THERAPY INH Last administered on 10/11/18at 07:37; Admin Dose 4 PUFF; Start 10/10/18 at 02:00 Ipratropium [place] (Atrovent Hfa) 4 puff Q6H RESP THERAPY INH Last administered on 10/11/18at 07:37; Admin Dose 4 PUFF; Start 10/10/18 at 02:00 Atenolol (Tenormin) 12.5 mg BID PO Last administered on 10/11/18at 08:40; Admin Dose 12.5 MG; Start 10/10/18 at 21:00 NEMO MARTINEZ M.D. Oct 11, 2018 12:30
[2018-10-11] MEDS: EPOETIN 10000 UNITS/1 ML INJ (ESRD) SC SCH (13:54)
--- NOTE | 2018-10-11 15:47 | CONS ---
DATE OF ADMISSION: 10/09/2018 DATE OF CONSULTATION: TYPE OF CONSULTATION: Nephrology. REASON FOR CONSULTATION: Hypernatremia, history of chronic kidney disease. PHYSICIAN REQUESTING CONSULT: Nola Vidal MD HISTORY OF PRESENT ILLNESS: This is a 53-year-old male with a past medical history of chronic respir atory failure, status post tracheostomy, history of dysphagia, status post PEG, history of quadripleg ia, history of COPD, who was transferred from [facility] to [facility] intens sofia care unit due to increasing FiIO2 requirements. The patient upon transfer to intensive care unit was seen by pulmonary, Dr. Villa. The patient was placed on PEEP of 5 and had FiO2 of 60%. The p atient was also given extensive bronchodilators and has been hemodynamically stable. In terms of patient's renal history, the patient has underlying history of CKD. The patient was also noted to have hypernatremia on admission with sodium level of 151 mEq per liter. The patient also h ad a urinary output of greater than approximately 75 mL per hour. There were no reports of any hemop tysis, hematemesis or hematochezia. PAST MEDICAL HISTORY: History of chronic respiratory failure, history of dysphagia, history of quadr iplegia, history of diabetes, history of hypertension, history of CKD, history of adrenal insufficien cy. PAST SURGICAL HISTORY: Status post trach, status PEG ALLERGIES: NO KNOWN DRUG ALLERGIES. MEDICATIONS: Have been reviewed. REVIEW OF SYSTEMS: A 14-point review of systems was conducted. Pertinent positives are stated in HP I, otherwise negative. PHYSICAL EXAMINATION: VITAL SIGNS: Blood pressure is 95/71, respirations 20, pulse 95, temperature 98.6. HEENT: Head is normocephalic. NECK: Supple. HEART: Regular rate. LUNGS: Show diminished breath sounds at base. ABDOMEN: Soft, nontender to palpation without rebound or guarding. EXTREMITIES: Negative for clubbing, cyanosis. No edema. DERMATOLOGIC: No rashes. MUSCULOSKELETAL: No joint effusion. NEUROLOGIC: The patient is quadriplegic. LABORATORY DATA: Show sodium 141, potassium 3.6, bicarbonate 35, BUN 40, creatinine 0.97, magnesium 2.6. White count 14.7, hemoglobin 9.3, platelet count of 368. IMAGING STUDIES: Including chest x-ray reviewed, which shows no significant interval change, stable diffuse patchy opacities in bilateral lungs. ASSESSMENT AND PLAN: This is a 53-year-old male who presents with: 1. Nonoliguric kidney injury on top of chronic kidney disease. Etiology of current acute kidney inj ury is likely secondary to hemodynamics. Plan at this point is to check a UA with microanalysis, ena ck urine electrolytes. We would continue current treatment plan. Continue supportive care, renally dose all meds. Avoid significant hemodynamic fluctuations. Monitor closely. 2. Hypernatremia. The patient has a free water deficit of approximately 2.5 liters. We will increa se free water flushes of 200 mL q.4 hours. Low suspicion for diabetes insipidus. However, we will c heck a urine osmolality. Continue to monitor closely. 3. Anemia. Monitor hemoglobin and hematocrit levels. 5. Mineral bone disorder. Monitor calcium and phosphorus levels. 6. Chronic respiratory failure, ventilatory dependent. The patient's vent settings and ABG were rev iewed. Continue to monitor. Follow up with pulmonary. 7. Dysphagia, status post PEG. Continue tube feeding. 8. Quadriplegia. Continue to monitor. Continue offloading. 9. Sepsis secondary to pneumonia. Continue current antibiotic regimen. 10. History of Clostridium difficile. Continue to monitor. 11. Tachycardia. Continue to monitor. Follow up with cardiology. 12. Chronic encephalopathy. Continue to monitor. 13. History of cord compression from C3 to C4, status post laminectomy. 14. Chronic pain syndrome. Continue current pain regimen. 15. Seizure disorder. Continue medical management. 16. History of rheumatoid arthritis. 17. Adrenal insufficiency, currently on steroids. We will continue. Thank you, Dr. Vidal, for this interesting consult. It will be a pleasure to follow patient with you throughout the hospital course. Dictated By: UNA ROY DO NR/NTS Conf#: [id number] DID#: [id number] CC: NOLA VIDAL MD; DALTON VILLA MD;*End*
[2018-10-11] MEDS ORDERED: D5W + KCL 20 MEQ 1,000 ML IV SCH (16:00)
--- NOTE | 2018-10-11 17:05 | PN ---
DATE: 10/11/2018 SUBJECTIVE: The patient remains on vent and verbally responsive. The patient's FiO2 is down to 60%. The patient continues to require PEEP. No reported fever or chills. No reported vomiting. No rep orted bleeding from any site. PHYSICAL EXAMINATION: GENERAL: Revealed the patient to be awake, alert. VITAL SIGNS: Temperature 97.8, pulse 96, respiratory rate 16, blood pressure 98/65, O2 saturation 92 % on FiO2 of 60%. HEENT: No eye discharge or redness. Conjunctivae and lids are normal. Nose and ears are normal. O ropharynx is grossly negative. NECK: Trachea in place. Mild secretion. CHEST: Diminished at bases. No use of accessory muscle. CARDIOVASCULAR: S1, S2 normal. No murmur. ABDOMEN: Soft, nondistended. G-tube in place. EXTREMITIES: Trace leg edema. LABORATORY DATA: Done this morning, WBC 14.7, hemoglobin 8.2, platelet 368. Sodium 151, potassium 3 .6, BUN 40, creatinine 0.9, glucose 90. IMPRESSION: 1. Sepsis, possibly aspiration versus healthcare-associated pneumonia. Continue IV Zosyn and also c ontinue Bactrim for pneumocystis prophylaxis. 2. Hypertension. Blood pressure reasonably controlled with the current dose of atenolol. 3. C-spine quadriplegia. 4. Dysphagia. Continue tube feeding. 5. Seizure disorder, stable with Keppra. 6. Hypercalcemia, status post pamidronate. Calcium is down to 10.1 today. 7. Rheumatoid arthritis with chronic systemic steroid dependence. No acute issue. 8. Hypernatremia. We will discontinue IV Lasix and we will give a liter of D5W and repeat BMP. The patient remains critically ill and will be monitored in ICU. Total critical care time spent is 35 minutes. Dictated By: NOLA VIDAL MD AB/NTS Conf#: [id number] DID#: [id number] CC: DALTON DURBIN MD;*EndCC*
[2018-10-12] VITALS (35 sets, daily range): BP systolic 88–114; BP diastolic 64–86; PULSE 87–106; RESP 17–34
[2018-10-12] MEDS: IPRATROPIUM (HFA) 12.9 GM INHALER INH SCH ×4 (01:05→19:42)
[2018-10-12] MEDS: ALBUTEROL HFA 8 GM INHALER INH SCH ×4 (01:05→19:42)
[2018-10-12] MEDS: ONDANSETRON 4 MG INJ IV PRN ×2 (01:12→11:23)
[2018-10-12] MEDS: ZOLPIDEM 5 MG TAB PO PRN ×2 (01:24→21:28)
[2018-10-12] MEDS: INSULIN ASPART [NOVOLOG] 3 ML PEN SC SCH ×4 (01:38→19:58)
[2018-10-12] MEDS: ACCU-CHEK XX SCH (01:40)
[2018-10-12] MEDS: HYDROmorphONE 2 MG TAB PO PRN ×5 (03:38→23:30)
[2018-10-12] MEDS: LANSOPRAZOLE 30 MG CAP GTB SCH ×2 (05:55→17:25)
[2018-10-12] MEDS: GABAPENTIN (50 MG/ML PO SYG) GTB SCH ×3 (05:55→21:06)
[2018-10-12] MEDS: PIPER-TAZO 3.375 GM IV (PMX) 100 ML IVPB SCH ×4 (05:59→23:14)
[2018-10-12] MEDS: ALPRAZOLAM 0.5 MG TAB GTB PRN ×3 (06:40→17:26)
[2018-10-12] MEDS: TRIMETHOPRIM/SULFAMETHOX (PO SYG) GTB SCH (08:34)
[2018-10-12] MEDS: LEVETIRACETAM (100 MG/ML) 5ML CUP GTB SCH ×2 (08:34→20:00)
[2018-10-12] MEDS: MICONAZOLE 2% 30 GM CR TOP SCH ×2 (08:34→20:03)
[2018-10-12] MEDS: BALSAM PERU/CASTOR OIL 60 GM TUBE TOP SCH ×2 (08:35→20:03)
[2018-10-12] MEDS: DULOXETINE 30 MG CAP DR PO SCH (08:35)
[2018-10-12] MEDS: L ACIDOPHIL/B LACTIS/B LONGUM CAPSULE GTB SCH ×2 (08:35→20:53)
[2018-10-12] MEDS: HYDROCORTISONE 5 MG TAB PO SCH ×3 (08:36→20:01)
[2018-10-12] MEDS: MAGNESIUM OXIDE 400 MG TAB GTB SCH ×2 (08:36→20:00)
[2018-10-12] MEDS: ATENOLOL 25 MG TAB PO SCH ×2 (08:36→20:01)
[2018-10-12] MEDS: METOCLOPRAMIDE 10 MG INJ IV SCH ×3 (08:37→20:01)
[2018-10-12] MEDS: HYDROXYCHLOROQUINE 200 MG TAB PO SCH ×2 (08:38→20:01)
--- NOTE | 2018-10-12 08:59 | PN ---
DATE: 10/12/2018 SUBJECTIVE: The patient remains critically ill on full ventilatory support. No other acute events n oted. No hemoptysis, hematemesis, or hematochezia. OBJECTIVE: VITAL SIGNS: Blood pressure is 109/86, respirations 22, pulse 97, temperature 98.0. HEENT: Head is normocephalic. NECK: Supple. HEART: Regular rate. LUNGS: Show diminished breath sounds at the base. ABDOMEN: Soft, nontender to palpation. No rebound or guarding. EXTREMITIES: Negative for clubbing, cyanosis, no edema. DERMATOLOGIC: No rashes. MUSCULOSKELETAL: No joint effusion. NEUROLOGIC: No change in exam. MEDICATIONS: Reviewed. LABORATORY DATA: Show sodium 147, BUN 27, creatinine 0.78. White count 14.9, hemoglobin 8.3, platel et count 355. The patient's urinalysis was reviewed, shows FENa greater than 1%, a protein creatinin e ratio approximately 2 grams per gram of creatinine. Urine osmolarity of 386. MEDICATIONS: The patient's medications have been reviewed. ASSESSMENT AND PLAN: 1. Nonoliguric acute kidney injury on top of chronic kidney disease. Etiology of acute kidney injur y is secondary to hemodynamics. The patient's renal function has been improving with supportive care , IV hydration. We will continue current treatment plan. Continue to renally dose all medicines, av oid nephrotoxins. 2. Hypernatremia. The patient has a free water deficit of approximately 2 liters. Etiology was lik mack multifactorial secondary to insensible losses, there may be underlying partial diabetes insipidus possibly nephrogenic in etiology. The patient's urinary osmolarity was noted to be 386 milliosmoles /liter, which is inappropriately low for the patient's level of hypernatremia. Additionally, there c ould be an underlying component of adrenal insufficiency contributing to hypernatremia. Recommendati on would be to continue current medical management. We will intensify free water flushes 200 mL q. 4 hours. Continue hypertonic fluids. Continue steroids and monitor closely. 3. Anemia. Continue to monitor hemoglobin and hematocrit levels. 4. Mineral bone disorder, monitor calcium and phosphorus levels. 5. Chronic respiratory failure, ventilator-dependent respiratory failure. The patient's vent settin gs and ABG was reviewed. Continue to monitor. 6. Dysphagia status post percutaneous endoscopic gastrostomy. Continue tube feeding. 7. Quadriplegia. Continue to monitor. 8. Sepsis secondary to pneumonia. Continue current antibiotic regimen. 9. Tachyarrhythmia. Continue current medical management. 10. Chronic encephalopathy. 11. Chronic pain syndrome. Continue current pain regimen. 12. Seizure disorder. Continue current treatment plan. 13. History of rheumatoid arthritis. 14. Renal insufficiency. Continue steroids. Dictated By: UNA ROY DO NR/NTS Conf#: [id number] DID#: [id number] CC: DALTON DURBIN MD; NOLA VIDAL MD;*EndCC*
[2018-10-12] MEDS ORDERED: INFLUENZA VIRUS VACCINE 0.5 ML (DISPENSING) IM* ONE (09:00)
--- NOTE | 2018-10-12 10:20 | CONS ---
Assessment/Plan Assessment/Plan Hospital Course (Demo Recall) IMPRESSION: 1. Tachycardia at this time in the setting of fevers and respiratory distress, most consistent with sinus tachycardia likely driving this process. 2. Hypertension with borderline hypotension at this time. -still borderline Hotn 3. Abnormal electrocardiogram at baseline. 4. Chronic respiratory failure, status post tracheostomy.-weaning vent support 5. Dysphagia, status post G-tube. 6. Quadriplegia. 7. Renal insufficiency, on steroids. 8. Chronic obstructive pulmonary disease. 9. Rheumatoid arthritis. 10. Chronic kidney disease. 11. Diabetes mellitus. Recc -ICU -Vent support as necessary -Follow volume status clsoely -Continue abx's and f/u cx data -continue steroids -low dose BB as tolerated only Consultation Date/Type/Reason Admit Date/Time Oct 09, 2018 at 12:16 Initial Consult Date 10/09/18 Type of Consult Cardiology Reason for Consultation tachycardia Requesting Provider: NOLA VIDAL MD Date/Time of Note DATE: 10/12/18 TIME: 10:17 Exam/Review of Systems Vital Signs Vitals Vital Signs Date Temp Pulse Resp B/P (MAP) Pulse Ox O2 O2 Flow FiO2 Time Delivery Rate 10/12/18 96 22 97/72 (80) 89 Mechanical 09:00 Ventilator 10/12/18 60 08:17 10/12/18 98.4 08:00 Intake and Output 10/11/18 10/11/18 10/12/18 1515:00 23:00 07:00 IntakeIntake Total 450 ml 565 ml 1335 ml OutputOutput Total 1400 ml 780 ml 750 ml BalanceBalance -950 ml -215 ml 585 ml Exam Exam Review of Systems: CONSTITUTIONAL: No fevers, chills. PULMONARY: No sob CARDIOVASCULAR: No chest pain/palpitations GASTROINTESTINAL: No nausea/vomiting. GENITOURINARY: No hematuria/dysuria. MUSCULOSKELETAL: No myagias/arthalgias. PSYCHIATRIC: The patient denies depression. NEUROLOGIC:lethargic Constitutional: other (sleeping) Head: normocephalic Neck: other (trcahed) Respiratory: diminished breath sounds (at bases/B) Cardiovascular: regular rate and rhythm Gastrointestinal: soft, non-tender Musculoskeletal: muscle weakness (generalized) Extremities: edema (none) Neurological: other (quadriplegic) Labs Result Diagram: 10/12/18 0430 10/12/18 0430 Results 24hrs Laboratory Tests Test 10/11/18 13:00 10/11/18 13:46 10/11/18 20:27 10/12/18 01:35 Urine Color YELLOW Urine Clarity CLEAR Urine pH 6.0 Urine Specific 1.013 [place] Urine Ketones NEGATIVE Urine Nitrite NEGATIVE Urine Bilirubin NEGATIVE Urine Urobilinogen NEGATIVE Urine Leukocyte NEGATIVE Esterase Urine Hemoglobin NEGATIVE Urine Osmolality 386 Urine Random 17.56 L Creatinine Urine Random Sodium 92 H Urine Glucose NEGATIVE Urine Total Protein 30.0 H Stool Occult Blood NEGATIVE Bedside Glucose 121 119 156 Test 10/12/18 04:30 10/12/18 08:52 White Blood Count 14.9 H Red Blood Count 2.94 L Hemoglobin 8.3 L Hematocrit 27.9 L Mean Corpuscular 94.9 Volume Mean Corpuscular 28.2 L Hemoglobin Mean Corpuscular 29.7 L Hemoglobin Concent Red Cell 16.1 H Distribution Width Platelet Count 355 Mean Platelet Volume 10.9 H Immature 1.300 H Granulocytes % Neutrophils % 53.1 Lymphocytes % 10.1 L Monocytes % 12.9 H Eosinophils % 21.5 H Basophils % 1.1 Nucleated Red Blood 0.0 Cells % Immature 0.200 H Granulocytes # Neutrophils # 7.9 H Lymphocytes # 1.5 Monocytes # 1.9 H Eosinophils # 3.2 H Basophils # 0.2 H Nucleated Red Blood 0.0 Cells # Sodium Level 147 H Potassium Level 3.6 Chloride Level 105 Carbon Dioxide Level 36 H Anion Gap 6 Blood Urea Nitrogen 27 #H Creatinine 0.78 Est Glomerular > 60 Filtrat Rate mL/min Glucose Level 120 Calcium Level 9.5 Phosphorus Level 3.8 Magnesium Level 2.3 Bedside Glucose 130 Medications Medications Current Medications Acetaminophen (Tylenol Liquid) 650 mg Q4H PRN GTB MILD PAIN(1-3)OR ELEVATED TEMP Last administered on 10/10/18at 03:10; Admin Dose 650 MG; Start 10/09/18 at 14:00 Al Hydrox/Mg Hydrox/Simethicone (Mag-Al Plus) 15 ml Q6H PRN PO GASTROINTESTINAL UPSET; Start 10/09/18 at 14:00 Alprazolam (Xanax) 0.5 mg Q6 PRN GTB ANXIETY Last administered on 10/12/18at 08:36; Admin Dose 0.5 MG; Start 10/09/18 at 14:00 Eye Lubricant (Artificial Tears Oph) 1 drop Q6H PRN BOTH EYES DRY EYES; Start 10/09/18 at 14:00 Bisacodyl (Dulcolax Supp) 10 mg DAILY PRN ID CONSTIPATION; Start 10/09/18 at 14:00 Clonidine (Catapres) 0.1 mg DAILY PRN GTB ELEVATED BLOOD PRESSURE; Start 10/09/18 at 14:00 Diltiazem HCl (Cardizem Iv) 5 mg Q4 PRN IV ELEVATED HEART RATE; Start 10/09/18 at 14:00 Diphenhydramine HCl (Benadryl Liquid Cup) 25 mg Q6 PRN GTB ITCHING; Start 10/09/18 at 14:00 Duloxetine HCl (Cymbalta) 30 mg DAILY PO Last administered on 10/12/18at 08:35; Admin Dose 30 MG; Start 10/10/18 at 09:00 Epoetin Arpan (Epogen (Esrd)) 10,000 units TuSa@1300 SC Last administered on 10/11/18at 13:54; Admin Dose 10,000 UNITS; Start 10/11/18 at 13:00 Fentanyl (Duragesic 25 Mcg/Hr Patch) 1 patch Q72H TRANSDERM Last administered on 10/11/18at 15:08; Admin Dose 1 PATCH; Start 10/11/18 at 15:00 Gabapentin (Neurontin Liquid) 400 mg Q8 GTB Last administered on 10/12/18at 05:55; Admin Dose 400 MG; Start 10/09/18 at 15:30 Hydralazine HCl (Apresoline) 10 mg Q4H PRN IV ELEVATED BLOOD PRESSURE; Start 10/09/18 at 14:00 Hydrocortisone (Cortef) 10 mg DAILY PO Last administered on 10/12/18at 08:36; Admin Dose 10 MG; Start 10/10/18 at 09:00 Hydrocortisone (Cortef) 5 mg 1500 PO Last administered on 10/11/18at 14:49; Admin Dose 5 MG; Start 10/09/18 at 15:00 Hydrocortisone (Cortef) 2.5 mg QHS PO Last administered on 10/11/18at 20:29; Ad min Dose 2.5 MG; Start 10/09/18 at 21:00 Hydromorphone HCl (Dilaudid) 4 mg Q4H PRN PO MODERATE PAIN LEVEL 4-6 Last administered on 10/11/18 14:54; Admin Dose 4 MG; Start 10/09/18 at 14:00 Hydromorphone HCl (Dilaudid) 8 mg Q4H PRN PO SEVERE PAIN LEVEL 7-10 Last administered on 10/12/18 08:37; Admin Dose 8 MG; Start 10/09/18 at 14:00 Hydroxychloroquine Sulfate (Plaquenil) 200 mg BID PO Last administered on 10/12/18 08:38; Admin Dose 200 MG; Start 10/09/18 at 21:00 Diagnostic Test (Pha) (Accu-Chek) 1 ea 02 XX Last administered on 10/12/18 01:40; Admin Dose 1 EA; Start 10/10/18 at 02:00 Insulin Aspart (Novolog Insulin Pen) NOVOLOG *CUSTOM* ALGORITHM Q6H SC Last administered on 10/12/18 01:38; Admin Dose 1 UNIT; Start 10/09/18 at 14:00 Lactobacillus Acidophilus (Florajen3 Capsule) 1 each BID GTB Last administered on 10/12/18 08:35; Admin Dose 1 EACH; Start 10/09/18 at 21:00 Lansoprazole (Prevacid) 30 mg BID@06,18 GTB Last administered on 10/12/18 05:55; Admin Dose 30 MG; Start 10/09/18 at 18:00 Levetiracetam (Keppra Liquid) 500 mg BID GTB Last administered on 10/12/18 08:34; Admin Dose 500 MG; Start 10/09/18 at 21:00 Magnesium Oxide (Mag-Ox 400) 400 mg BID GTB Last administered on 10/12/18 08:36; Admin Dose 400 MG; Start 10/09/18 at 21:00 Metoclopramide HCl (Reglan) 10 mg TID IV Last administered on 10/12/18 08:37; Admin Dose 10 MG; Start 10/09/18 at 21:00 Miconazole Nitrate (Miconazole 2% Cr) 1 applic BID TOP Last administered on 10/12/18 08:34; Admin Dose 1 APPLIC; Start 10/09/18 at 21:00 Miconazole Nitrate (Miconazole 2% Cr) 1 applic Q12 PRN TOP rash; Start 10/09/18 at 14:00 Ondansetron HCl (Zofran Inj) 4 mg Q4H PRN IV NAUSEA AND/OR VOMITING Last adm inistered on 10/12/18at 01:12; Admin Dose 4 MG; Start 10/09/18 at 14:00 Polyethylene Glycol (Miralax) 17 gm DAILY PRN GTB CONSTIPATION; Start 10/09/18 at 14:00 Senna (Senokot) 2 tab Q8 PRN PO CONSTIPATION; Start 10/09/18 at 14:00 Trimethoprim/ Sulfamethoxazole (Bactrim Susp) 40 ml DAILY GTB Last administered on 10/12/18at 08:34; Admin Dose 40 ML; Start 10/10/18 at 09:00 Zolpidem Tartrate (Ambien) 5 mg HS PRN PO INSOMNIA Last administered on 10/12/18at 01:24; Admin Dose 5 MG; Start 10/09/18 at 14:00 Miscellaneous Information 1 ea NOTE XX ; Start 10/09/18 at 15:00 Glucose (Glutose) 15 gm Q15M PRN PO DECREASED GLUCOSE; Start 10/09/18 at 15:00 Glucose (Glutose) 22.5 gm Q15M PRN PO DECREASED GLUCOSE; Start 10/09/18 at 15:00 Dextrose (D50w Syringe) 25 ml Q15M PRN IV DECREASED GLUCOSE; Start 10/09/18 at 15:00 Dextrose (D50w Syringe) 50 ml Q15M PRN IV DECREASED GLUCOSE; Start 10/09/18 at 15:00 Glucagon (Glucagen) 1 mg Q15M PRN IM DECREASED GLUCOSE; Start 10/09/18 at 15:00 Glucose (Glutose) 15 gm Q15M PRN BUCCAL DECREASED GLUCOSE; Start 10/09/18 at 15:00 Sodium Chloride 500 ml @ 500 mls/hr Q1H PRN IV BLOOD PRESSURE SUPPORT Last administered on 10/10/18at 07:59; Admin Dose 500 MLS/HR; Start 10/09/18 at 19:30 Piperacillin Sod/ Tazobactam Sod 100 ml @ 200 mls/hr Q6 IVPB Last administered on 10/12/18at 05:59; Admin Dose 200 MLS/HR; Start 10/09/18 at 20:00 Albuterol (Ventolin Hfa) 4 puff Q6H RESP THERAPY INH Last administered on 10/12/18 09:12; Admin Dose 4 PUFF; Start 10/10/18 at 02:00 Ipratropium [place] (Atrovent Hfa) 4 puff Q6H RESP THERAPY INH Last administered on 10/12/18 09:12; Admin Dose 4 PUFF; Start 10/10/18 at 02:00 Atenolol (Tenormin) 12.5 mg BID PO Last administered on 10/12/18 08:36; Admin Dose 12.5 MG; Start 10/10/18 at 21:00 BRISA HAQUE Oct 12, 2018 10:20
--- NOTE | 2018-10-12 11:14 | CONS ---
Consult Date/Type/Reason Admit Date/Time Oct 09, 2018 at 12:16 Initial Consult Date 10/09/18 Type of Consult Pulmonary Requesting Provider: NOLA VIDAL MD Date/Time of Note DATE: 10/12/18 TIME: 11:12 Subjective Patient has no significant changes. FiO2 decreased to 50% PEEP of 5 remains awake alert comfortable no hemodynamic support. Objective Vital Signs Date Temp Pulse Resp B/P (MAP) Pulse Ox O2 O2 Flow FiO2 Time Delivery Rate 10/12/18 96 22 97/72 (80) 89 Mechanical 09:00 Ventilator 10/12/18 60 08:17 10/12/18 98.4 08:00 Intake and Output 10/11/18 10/11/18 10/12/18 1515:00 23:00 07:00 IntakeIntake Total 450 ml 565 ml 1335 ml OutputOutput Total 1400 ml 780 ml 750 ml BalanceBalance -950 ml -215 ml 585 ml Exam PHYSICAL EXAMINATION: GENERAL: Elderly-appearing gentleman, now awake, alert, oriented on mechanical ventilation. VITAL SIGNS: NECK: Trach site clean and intact. CARDIAC: S1, S2, no added sounds or murmurs. CHEST: Diminished air entry bilaterally. ABDOMEN: Soft, nontender. No guarding or rebound. EXTREMITIES: No cyanosis, clubbing or edema. NEUROLOGIC: Generalized weakness. Vent Setting Ventilator Support Mode: PC Fraction of Inspired Oxygen pe: 60 Positive End Expiratory Pressu: 5.0 Results/Medications Result Diagram: 10/12/18 0430 10/12/18 0430 Results 24 hrs Laboratory Tests Test 10/11/18 13:00 10/11/18 13:46 10/11/18 20:27 10/12/18 01:35 Urine Color YELLOW Urine Clarity CLEAR Urine pH 6.0 Urine Specific 1.013 [place] Urine Ketones NEGATIVE Urine Nitrite NEGATIVE Urine Bilirubin NEGATIVE Urine Urobilinogen NEGATIVE Urine Leukocyte NEGATIVE Esterase Urine Hemoglobin NEGATIVE Urine Osmolality 386 Urine Random 17.56 L Creatinine Urine Random Sodium 92 H Urine Glucose NEGATIVE Urine Total Protein 30.0 H Stool Occult Blood NEGATIVE Bedside Glucose 121 119 156 Test 10/12/18 04:30 10/12/18 08:52 White Blood Count 14.9 H Red Blood Count 2.94 L Hemoglobin 8.3 L Hematocrit 27.9 L Mean Corpuscular 94.9 Volume Mean Corpuscular 28.2 L Hemoglobin Mean Corpuscular 29.7 L Hemoglobin Concent Red Cell 16.1 H Distribution Width Platelet Count 355 Mean Platelet Volume 10.9 H Immature 1.300 H Granulocytes % Neutrophils % 53.1 Lymphocytes % 10.1 L Monocytes % 12.9 H Eosinophils % 21.5 H Basophils % 1.1 Nucleated Red Blood 0.0 Cells % Immature 0.200 H Granulocytes # Neutrophils # 7.9 H Lymphocytes # 1.5 Monocytes # 1.9 H Eosinophils # 3.2 H Basophils # 0.2 H Nucleated Red Blood 0.0 Cells # Sodium Level 147 H Potassium Level 3.6 Chloride Level 105 Carbon Dioxide Level 36 H Anion Gap 6 Blood Urea Nitrogen 27 #H Creatinine 0.78 Est Glomerular > 60 Filtrat Rate mL/min Glucose Level 120 Calcium Level 9.5 Phosphorus Level 3.8 Magnesium Level 2.3 Bedside Glucose 130 Medications Current Medications Acetaminophen (Tylenol Liquid) 650 mg Q4H PRN GTB MILD PAIN(1-3)OR ELEVATED TEMP Last administered on 10/10/18at 03:10; Admin Dose 650 MG; Start 10/09/18 at 14:00 Al Hydrox/Mg Hydrox/Simethicone (Mag-Al Plus) 15 ml Q6H PRN PO GASTROINTESTINAL UPSET; Start 10/09/18 at 14:00 Alprazolam (Xanax) 0.5 mg Q6 PRN GTB ANXIETY Last administered on 10/12/18at 08:36; Admin Dose 0.5 MG; Start 10/09/18 at 14:00 Eye Lubricant (Artificial Tears Oph) 1 drop Q6H PRN BOTH EYES DRY EYES; Start 10/09/18 at 14:00 Bisacodyl (Dulcolax Supp) 10 mg DAILY PRN [place] CONSTIPATION; Start 10/09/18 at 14:00 Clonidine (Catapres) 0.1 mg DAILY PRN GTB ELEVATED BLOOD PRESSURE; Start 10/09/18 at 14:00 Diltiazem HCl (Cardizem Iv) 5 mg Q4 PRN IV ELEVATED HEART RATE; Start 10/09/18 at 14:00 Diphenhydramine HCl (Benadryl Liquid Cup) 25 mg Q6 PRN GTB ITCHING; Start 10/09/18 at 14:00 Duloxetine HCl (Cymbalta) 30 mg DAILY PO Last administered on 10/12/18 08:35; Admin Dose 30 MG; Start 10/10/18 at 09:00 Epoetin Arpan (Epogen (Esrd)) 10,000 units TuSa@1300 SC Last administered on 13:54; Admin Dose 10,000 UNITS; Start 10/11/18 at 13:00 Fentanyl (Duragesic 25 Mcg/Hr Patch) 1 patch Q72H TRANSDERM Last administered on 10/11/18 15:08; Admin Dose 1 PATCH; Start 10/11/18 at 15:00 Gabapentin (Neurontin Liquid) 400 mg Q8 GTB Last administered on 10/12/18 05:55; Admin Dose 400 MG; Start 10/09/18 at 15:30 Hydralazine HCl (Apresoline) 10 mg Q4H PRN IV ELEVATED BLOOD PRESSURE; Start 10/09/18 at 14:00 Hydrocortisone (Cortef) 10 mg DAILY PO Last administered on 10/12/18 08:36; Admin Dose 10 MG; Start 10/10/18 at 09:00 Hydrocortisone (Cortef) 5 mg 1500 PO Last administered on 10/11/18 14:49; Admin Dose 5 MG; Start 10/09/18 at 15:00 Hydrocortisone (Cortef) 2.5 mg QHS PO Last administered on 10/11/18 20:29; Admin Dose 2.5 MG; Start 10/09/18 at 21:00 Hydromorphone HCl (Dilaudid) 4 mg Q4H PRN PO MODERATE PAIN LEVEL 4-6 Last administered on 10/11/18 14:54; Admin Dose 4 MG; Start 10/09/18 at 14:00 Hydromorphone HCl (Dilaudid) 8 mg Q4H PRN PO SEVERE PAIN LEVEL 7-10 Last administered on 10/12/18 08:37; Admin Dose 8 MG; Start 10/09/18 at 14:00 Hydroxychloroquine Sulfate (Plaquenil) 200 mg BID PO Last administered on 10/12/18 08:38; Admin Dose 200 MG; Start 10/09/18 at 21:00 Diagnostic Test (Pha) (Accu-Chek) 1 ea 02 XX Last administered on 10/12/18 01:40; Admin Dose 1 EA; Start 10/10/18 at 02:00 Insulin Aspart (Novolog Insulin Pen) NOVOLOG *CUSTOM* ALGORITHM Q6H SC Last administered on 10/12/18 01:38; Admin Dose 1 UNIT; Start 10/09/18 at 14:00 Lactobacillus Acidophilus (Florajen3 Capsule) 1 each BID GTB Last administered on 10/12/18 08:35; Admin Dose 1 EACH; Start 10/09/18 at 21:00 Lansoprazole (Prevacid) 30 mg BID@06,18 GTB Last administered on 10/12/18 05:55; Admin Dose 30 MG; Start 10/09/18 at 18:00 Levetiracetam (Keppra Liquid) 500 mg BID GTB Last administered on 10/12/18 08:34; Admin Dose 500 MG; Start 10/09/18 at 21:00 Magnesium Oxide (Mag-Ox 400) 400 mg BID GTB Last administered on 10/12/18 08:36; Admin Dose 400 MG; Start 10/09/18 at 21:00 Metoclopramide HCl (Reglan) 10 mg TID IV Last administered on 10/12/18 08:37; Admin Dose 10 MG; Start 10/09/18 at 21:00 Miconazole Nitrate (Miconazole 2% Cr) 1 applic BID TOP Last administered on 10/12/18 08:34; Admin Dose 1 APPLIC; Start 10/09/18 at 21:00 Miconazole Nitrate (Miconazole 2% Cr) 1 applic Q12 PRN TOP rash; Start 10/09/18 at 14:00 Ondansetron HCl (Zofran Inj) 4 mg Q4H PRN IV NAUSEA AND/OR VOMITING Last administered on 10/12/18 01:12; Admin Dose 4 MG; Start 10/09/18 at 14:00 Polyethylene Glycol (Miralax) 17 gm DAILY PRN GTB CONSTIPATION; Start 10/09/18 at 14:00 Senna (Senokot) 2 tab Q8 PRN PO CONSTIPATION; Start 10/09/18 at 14:00 Trimethoprim/ Sulfamethoxazole (Bactrim Susp) 40 ml DAILY GTB Last administered on 10/12/18 08:34; Admin Dose 40 ML; Start 10/10/18 at 09:00 Zolpidem Tartrate (Ambien) 5 mg HS PRN PO INSOMNIA Last administered on 10/12/18 at 01:24; Admin Dose 5 MG; Start 10/09/18 at 14:00 Miscellaneous Information 1 ea NOTE XX ; Start 10/09/18 at 15:00 Glucose (Glutose) 15 gm Q15M PRN PO DECREASED GLUCOSE; Start 10/09/18 at 15:00 Glucose (Glutose) 22.5 gm Q15M PRN PO DECREASED GLUCOSE; Start 10/09/18 at 15:00 Dextrose (D50w Syringe) 25 ml Q15M PRN IV DECREASED GLUCOSE; Start 10/09/18 at 15:00 Dextrose (D50w Syringe) 50 ml Q15M PRN IV DECREASED GLUCOSE; Start 10/09/18 at 15:00 Glucagon (Glucagen) 1 mg Q15M PRN IM DECREASED GLUCOSE; Start 10/09/18 at 15:00 Glucose (Glutose) 15 gm Q15M PRN BUCCAL DECREASED GLUCOSE; Start 10/09/18 at 15:00 Sodium Chloride 500 ml @ 500 mls/hr Q1H PRN IV BLOOD PRESSURE SUPPORT Last administered on 10/10/18at 07:59; Admin Dose 500 MLS/HR; Start 10/09/18 at 19:30 Piperacillin Sod/ Tazobactam Sod 100 ml @ 200 mls/hr Q6 IVPB Last administered on 10/12/18at 05:59; Admin Dose 200 MLS/HR; Start 10/09/18 at 20:00 Albuterol (Ventolin Hfa) 4 puff Q6H RESP THERAPY INH Last administered on 10/12/18at 09:12; Admin Dose 4 PUFF; Start 10/10/18 at 02:00 Ipratropium [place] (Atrovent Hfa) 4 puff Q6H RESP THERAPY INH Last administered on 10/12/18at 09:12; Admin Dose 4 PUFF; Start 10/10/18 at 02:00 Atenolol (Tenormin) 12.5 mg BID PO Last administered on 10/12/18at 08:36; Admin Dose 12.5 MG; Start 10/10/18 at 21:00 Assessment/Plan Hospital Course (Demo Recall) IMPRESSION: 1. Acute on chronic hypoxemic respiratory failure with underlying acute respiratory distress syndrome. 2. History of HSV esophagitis. 3. Chronic sepsis. 4. History of rheumatoid arthritis. 5. C-spine disease with functional quadriplegia. 6. Dysphagia with G-tube. PLAN: 1. Continue bronchodilators. 2. Pressure control ventilation. 3. Decrease FIO2 and PEEP as tolerated. FiO2 is 50% PEEP of 5 4. Bronchodilator treatment. 5. Deep vein thrombosis and gastrointestinal prophylaxis. Transferred back to [place] today. DALTON DURBIN MD, [facility] Oct 12, 2018 11:14
--- NOTE | 2018-10-12 14:06 | CONS ---
Assessment/Plan Assessment/Plan Problems: (1) Hypercalcemia Status: Acute Comment: This is resolved after treatment with pamidronate. (2) Diabetes mellitus type 2 in nonobese Status: Chronic Comment: Adequate glycemic control at the present time (3) Chronic steroid use Status: Chronic Comment: Maintain steroid replacement therapy. 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 (5) Essential hypertension Status: Chronic Comment: Adequate control (6) Quadriplegia, functional Status: Chronic Comment: Noted. (7) Acquired hypothyroidism Status: Chronic Comment: Continue with thyroid hormone replacement therapy (8) Iron deficiency anemia Status: Chronic Comment: Recheck labs and treat as indicated Consultation Date/Type/Reason Admit Date/Time Oct 09, 2018 at 12:16 Date of Consultation: Oct 12, 2018 Type of Consult Endocrinology Reason for Consultation Diabetes mellitus type 2; hypercalcemia while at the other institution-[facility] Requesting Provider: NOLA VIDAL MD Date/Time of Note DATE: 10/12/18 TIME: 14:01 Hx of Present Illness 53-year-old gentleman who has functional quadriplegia with minimal ability to use his left upper extremity after cervical spine decompression for cervical spine stenosis. Has a tracheostomy and a feeding tube PEG's type. He has a long history of rheumatoid arthritis, and's usage of steroids which is led him to have an adrenal insufficiency. Brought in to [facility] on transfer from another facility. At that time his dosage of calcitriol was increased by a factor of 8 times. After 2 weeks he developed hypercalcemia. The calcitriol was adjusted downward but his hypercalcemia persisted and was actually treated with a single dosage of IV pamidronate at low dosage. He became you calcemic but also subsequently has had an aspiration event and is in the intensive care unit here after transfer. Subjective hx not possible: pt non-verbal (Please note that he is trached and nonverbal but is able to communicate) Constitutional: no complaints (Denies fevers chills or sweats) Respiratory: shortness of breath Cardiovascular: no complaints Gastrointestinal: no complaints Past Medical History Medical History: diabetes, hypertension, renal disease, other (COPD, RA, spinal stenosis, neuropathy, cervical myelopathy with cervical radiculopathy, chronic pain syndrome, tracheobronchitis, fibromyalgia, MAC infection, anemia, chronic steroid therapy) Medications Current Medications Acetaminophen (Tylenol Liquid) 650 mg Q4H PRN GTB MILD PAIN(1-3)OR ELEVATED TEMP Last administered on 10/10/18at 03:10; Admin Dose 650 MG; Start 10/09/18 at 14:00 Al Hydrox/Mg Hydrox/Simethicone (Mag-Al Plus) 15 ml Q6H PRN PO GASTROINTESTINAL UPSET; Start 10/09/18 at 14:00 Alprazolam (Xanax) 0.5 mg Q6 PRN GTB ANXIETY Last administered on 10/12/18at 08:36; Admin Dose 0.5 MG; Start 10/09/18 at 14:00 Eye Lubricant (Artificial Tears Oph) 1 drop Q6H PRN BOTH EYES DRY EYES; Start 10/09/18 at 14:00 Bisacodyl (Dulcolax Supp) 10 mg DAILY PRN OR CONSTIPATION; Start 10/09/18 at 14:00 Clonidine (Catapres) 0.1 mg DAILY PRN GTB ELEVATED BLOOD PRESSURE; Start 10/09/18 at 14:00 Diltiazem HCl (Cardizem Iv) 5 mg Q4 PRN IV ELEVATED HEART RATE; Start 10/09/18 at 14:00 Diphenhydramine HCl (Benadryl Liquid Cup) 25 mg Q6 PRN GTB ITCHING; Start at 14:00 Duloxetine HCl (Cymbalta) 30 mg DAILY PO Last administered on 10/12/18at 08:35; Admin Dose 30 MG; Start 10/10/18 at 09:00 Epoetin Arpan (Epogen (Esrd)) 10,000 units TuSa@1300 SC Last administered on 10/11/18at 13:54; Admin Dose 10,000 UNITS; Start 10/11/18 at 13:00 Fentanyl (Duragesic 25 Mcg/Hr Patch) 1 patch Q72H TRANSDERM Last administered on 10/11/18at 15:08; Admin Dose 1 PATCH; Start 10/11/18 at 15:00 Gabapentin (Neurontin Liquid) 400 mg Q8 GTB Last administered on 10/12/18at 0 5:55; Admin Dose 400 MG; Start 10/09/18 at 15:30 Hydralazine HCl (Apresoline) 10 mg Q4H PRN IV ELEVATED BLOOD PRESSURE; Start 10/09/18 at 14:00 Hydrocortisone (Cortef) 10 mg DAILY PO Last administered on 10/12/18 08:36; Admin Dose 10 MG; Start 10/10/18 at 09:00 Hydrocortisone (Cortef) 5 mg 1500 PO Last administered on 10/11/18 14:49; Admin Dose 5 MG; Start 10/09/18 at 15:00 Hydrocortisone (Cortef) 2.5 mg QHS PO Last administered on 10/11/18 20:29; Admin Dose 2.5 MG; Start 10/09/18 at 21:00 Hydromorphone HCl (Dilaudid) 4 mg Q4H PRN PO MODERATE PAIN LEVEL 4-6 Last administered on 10/11/18 14:54; Admin Dose 4 MG; Start 10/09/18 at 14:00 Hydromorphone HCl (Dilaudid) 8 mg Q4H PRN PO SEVERE PAIN LEVEL 7-10 Last administered on 10/12/18 08:37; Admin Dose 8 MG; Start 10/09/18 at 14:00 Hydroxychloroquine Sulfate (Plaquenil) 200 mg BID PO Last administered on 10/12/18 08:38; Admin Dose 200 MG; Start 10/09/18 at 21:00 Diagnostic Test (Pha) (Accu-Chek) 1 ea 02 XX Last administered on 10/12/18 01:40; Admin Dose 1 EA; Start 10/10/18 at 02:00 Insulin Aspart (Novolog Insulin Pen) NOVOLOG *CUSTOM* ALGORITHM Q6H SC Last administered on 10/12/18 01:38; Admin Dose 1 UNIT; Start 10/09/18 at 14:00 Lactobacillus Acidophilus (Florajen3 Capsule) 1 each BID GTB Last administered on 10/12/18 08:35; Admin Dose 1 EACH; Start 10/09/18 at 21:00 Lansoprazole (Prevacid) 30 mg BID@,18 GTB Last administered on 10/12/18 05:55; Admin Dose 30 MG; Start 10/09/18 at 18:00 Levetiracetam (Keppra Liquid) 500 mg BID GTB Last administered on 10/12/18 08:34; Admin Dose 500 MG; Start 10/09/18 at 21:00 Magnesium Oxide (Mag-Ox 400) 400 mg BID GTB Last administered on 10/12/18at 08:36; Admin Dose 400 MG; Start 10/09/18 at 21:00 Metoclopramide HCl (Reglan) 10 mg TID IV Last administered on 10/12/18at 08:37; Admin Dose 10 MG; Start 10/09/18 at 21:00 Miconazole Nitrate (Miconazole 2% Cr) 1 applic BID TOP Last administered on 10/12/18at 08:34; Admin Dose 1 APPLIC; Start 10/09/18 at 21:00 Miconazole Nitrate (Miconazole 2% Cr) 1 applic Q12 PRN TOP rash; Start 10/09/18 at 14:00 Ondansetron HCl (Zofran Inj) 4 mg Q4H PRN IV NAUSEA AND/OR VOMITING Last administered on 10/12/18at 11:23; Admin Dose 4 MG; Start 10/09/18 at 14:00 Polyethylene Glycol (Miralax) 17 gm DAILY PRN GTB CONSTIPATION; Start 10/09/18 at 14:00 Senna (Senokot) 2 tab Q8 PRN PO CONSTIPATION; Start 10/09/18 at 14:00 Trimethoprim/ Sulfamethoxazole (Bactrim Susp) 40 ml DAILY GTB Last administered on 10/12/18at 08:34; Admin Dose 40 ML; Start 10/10/18 at 09:00 Zolpidem Tartrate (Ambien) 5 mg HS PRN PO INSOMNIA Last administered on 10/12/18at 01:24; Admin Dose 5 MG; Start 10/09/18 at 14:00 Miscellaneous Information 1 ea NOTE XX ; Start 10/09/18 at 15:00 Glucose (Glutose) 15 gm Q15M PRN PO DECREASED GLUCOSE; Start 10/09/18 at 15:00 Glucose (Glutose) 22.5 gm Q15M PRN PO DECREASED GLUCOSE; Start 10/09/18 at 15:00 Dextrose (D50w Syringe) 25 ml Q15M PRN IV DECREASED GLUCOSE; Start 10/09/18 at 15:00 Dextrose (D50w Syringe) 50 ml Q15M PRN IV DECREASED GLUCOSE; Start 10/09/18 at 15:00 Glucagon (Glucagen) 1 mg Q15M PRN IM DECREASED GLUCOSE; Start 10/09/18 at 15:00 Glucose (Glutose) 15 gm Q15M PRN BUCCAL DECREASED GLUCOSE; Start 10/09/18 at 15:00 Sodium Chloride 500 ml @ 500 mls/hr Q1H PRN IV BLOOD PRESSURE SUPPORT Last administered on 10/10/18at 07:59; Admin Dose 500 MLS/HR; Start 10/09/18 at 19:30 Piperacillin Sod/ Tazobactam Sod 100 ml @ 200 mls/hr Q6 IVPB Last administered on 10/12/18at 11:24; Admin Dose 200 MLS/HR; Start 10/09/18 at 20:00 Albuterol (Ventolin Hfa) 4 puff Q6H RESP THERAPY INH Last administered on 10/12/18at 09:12; Admin Dose 4 PUFF; Start 10/10/18 at 02:00 Ipratropium [place] (Atrovent Hfa) 4 puff Q6H RESP THERAPY INH Last administered on 10/12/18at 09:12; Admin Dose 4 PUFF; Start 10/10/18 at 02:00 Atenolol (Tenormin) 12.5 mg BID PO Last administered on 10/12/18at 08:36; Admin Dose 12.5 MG; Start 10/10/18 at 21:00 Allergies: Coded Allergies: No Known Allergy (Unverified , 09/16/18) Past Surgical History Past Surgical Hx: other (L shoulder surgery, L femur fracture ORIF, C3-C5 laminectomy with instrucmention from C3-C6, taract repair, EGD, colonoscopy, ERCP, I&D of thumb abscess, laser lithotripsy of nephrolithiasis) Family History Significant Family History: no pertinent family hx Social History Alcohol Use: none Smoking Status: Never smoker Drug Use: none Exam/Review of Systems Exam Vitals Vital Signs Date Temp Pulse Resp B/P (MAP) Pulse Ox O2 O2 Flow FiO2 Time Delivery Rate 10/12/18 93 25 97/73 (81) 95 Mechanical 13:00 Ventilator 10/12/18 97.8 12:00 10/12/18 60 11:24 Intake and Output 10/11/18 10/11/18 10/12/18 1515:00 23:00 07:00 IntakeIntake Total 450 ml 565 ml 1335 ml OutputOutput Total 1400 ml 780 ml 750 ml BalanceBalance -950 ml -215 ml 585 ml Constitutional: alert, oriented Neck: other (Tracheostomy present) Respiratory: crackles/rales Cardiovascular: regular rate and rhythm, nl pulses Gastrointestinal: other (The G-tube present) Results Result Diagram: 10/12/18 0430 10/12/18 0430 Results 24hrs Laboratory Tests Test 10/11/18 20:27 10/12/18 01:35 10/12/18 04:30 10/12/18 08:52 Bedside Glucose 119 156 130 White Blood Count 14.9 H Red Blood Count 2.94 L Hemoglobin 8.3 L Hematocrit 27.9 L Mean Corpuscular 94.9 Volume Mean Corpuscular 28.2 L Hemoglobin Mean Corpuscular 29.7 L Hemoglobin Concent Red Cell 16.1 H Distribution Width Platelet Count 355 Mean Platelet Volume 10.9 H Immature 1.300 H Granulocytes % Neutrophils % 53.1 Lymphocytes % 10.1 L Monocytes % 12.9 H Eosinophils % 21.5 H Basophils % 1.1 Nucleated Red Blood 0.0 Cells % Immature 0.200 H Granulocytes # Neutrophils # 7.9 H Lymphocytes # 1.5 Monocytes # 1.9 H Eosinophils # 3.2 H Basophils # 0.2 H Nucleated Red Blood 0.0 Cells # Sodium Level 147 H Potassium Level 3.6 Chloride Level 105 Carbon Dioxide Level 36 H Anion Gap 6 Blood Urea Nitrogen 27 #H Creatinine 0.78 Est Glomerular > 60 Filtrat Rate mL/min Glucose Level 120 Calcium Level 9.5 Phosphorus Level 3.8 Magnesium Level 2.3 Medications Medication Current Medications Acetaminophen (Tylenol Liquid) 650 mg Q4H PRN GTB MILD PAIN(1-3)OR ELEVATED TEMP Last administered on 10/10/18at 03:10; Admin Dose 650 MG; Start 10/09/18 at 14:00 Al Hydrox/Mg Hydrox/Simethicone (Mag-Al Plus) 15 ml Q6H PRN PO GASTROINTESTINAL UPSET; Start 10/09/18 at 14:00 Alprazolam (Xanax) 0.5 mg Q6 PRN GTB ANXIETY Last administered on 10/12/18at 08:36; Admin Dose 0.5 MG; Start 10/09/18 at 14:00 Eye Lubricant (Artificial Tears Oph) 1 drop Q6H PRN BOTH EYES DRY EYES; Start 10/09/18 at 14:00 Bisacodyl (Dulcolax Supp) 10 mg DAILY PRN OR CONSTIPATION; Start 10/09/18 at 14:00 Clonidine (Catapres) 0.1 mg DAILY PRN GTB ELEVATED BLOOD PRESSURE; Start 10/09/18 at 14:00 Diltiazem HCl (Cardizem Iv) 5 mg Q4 PRN IV ELEVATED HEART RATE; Start 10/09/18 at 14:00 Diphenhydramine HCl (Benadryl Liquid Cup) 25 mg Q6 PRN GTB ITCHING; Start 10/09/18 at 14:00 Duloxetine HCl (Cymbalta) 30 mg DAILY PO Last administered on 10/12/18 08:35; Admin Dose 30 MG; Start 10/10/18 at 09:00 Epoetin Arpan (Epogen (Esrd)) 10,000 units TuSa@1300 SC Last administered on 10/11/18 13:54; Admin Dose 10,000 UNITS; Start 10/11/18 at 13:00 Fentanyl (Duragesic 25 Mcg/Hr Patch) 1 patch Q72H TRANSDERM Last administered on 10/11/18at 15:08; Admin Dose 1 PATCH; Start 10/11/18 at 15:00 Gabapentin (Neurontin Liquid) 400 mg Q8 GTB Last administered on 10/12/18 05:55; Admin Dose 400 MG; Start 10/09/18 at 15:30 Hydralazine HCl (Apresoline) 10 mg Q4H PRN IV ELEVATED BLOOD PRESSURE; Start 10/09/18 at 14:00 Hydrocortisone (Cortef) 10 mg DAILY PO Last administered on 10/12/18 08:36; Admin Dose 10 MG; Start 10/10/18 at 09:00 Hydrocortisone (Cortef) 5 mg 1500 PO Last administered on 10/11/18 14:49; Admin Dose 5 MG; Start 10/09/18 at 15:00 Hydrocortisone (Cortef) 2.5 mg QHS PO Last administered on 10/11/18 20:29; Admin Dose 2.5 MG; Start 10/09/18 at 21:00 Hydromorphone HCl (Dilaudid) 4 mg Q4H PRN PO MODERATE PAIN LEVEL 4-6 Last administered on 10/11/18at 14:54; Admin Dose 4 MG; Start 10/09/18 at 14:00 Hydromorphone HCl (Dilaudid) 8 mg Q4H PRN PO SEVERE PAIN LEVEL 7-10 Last administered on 10/12/18 08:37; Admin Dose 8 MG; Start 10/09/18 at 14:00 Hydroxychloroquine Sulfate (Plaquenil) 200 mg BID PO Last administered on 10/12/18 08:38; Admin Dose 200 MG; Start 10/09/18 at 21:00 Diagnostic Test (Pha) (Accu-Chek) 1 ea 02 XX Last administered on 10/12/18 01:40; Admin Dose 1 EA; Start 10/10/18 at 02:00 Insulin Aspart (Novolog Insulin Pen) NOVOLOG *CUSTOM* ALGORITHM Q6H SC Last administered on 10/12/18 01:38; Admin Dose 1 UNIT; Start 10/09/18 at 14:00 Lactobacillus Acidophilus (Florajen3 Capsule) 1 each BID GTB Last administered on 10/12/18 08:35; Admin Dose 1 EACH; Start 10/09/18 at 21:00 Lansoprazole (Prevacid) 30 mg BID@06,18 GTB Last administered on 10/12/18 05:55; Admin Dose 30 MG; Start 10/09/18 at 18:00 Levetiracetam (Keppra Liquid) 500 mg BID GTB Last administered on 10/12/18 08:34; Admin Dose 500 MG; Start 10/09/18 at 21:00 Magnesium Oxide (Mag-Ox 400) 400 mg BID GTB Last administered on 10/12/18 08:36; Admin Dose 400 MG; Start 10/09/18 at 21:00 Metoclopramide HCl (Reglan) 10 mg TID IV Last administered on 10/12/18 08:37; Admin Dose 10 MG; Start 10/09/18 at 21:00 Miconazole Nitrate (Miconazole 2% Cr) 1 applic BID TOP Last administered on 10/12/18 08:34; Admin Dose 1 APPLIC; Start 10/09/18 at 21:00 Miconazole Nitrate (Miconazole 2% Cr) 1 applic Q12 PRN TOP rash; Start 10/09/18 at 14:00 Ondansetron HCl (Zofran Inj) 4 mg Q4H PRN IV NAUSEA AND/OR VOMITING Last administered on 10/12/18at 11:23; Admin Dose 4 MG; Start 10/09/18 at 14:00 Polyethylene Glycol (Miralax) 17 gm DAILY PRN GTB CONSTIPATION; Start 10/09/18 at 14:00 Senna (Senokot) 2 tab Q8 PRN PO CONSTIPATION; Start 10/09/18 at 14:00 Trimethoprim/ Sulfamethoxazole (Bactrim Susp) 40 ml DAILY GTB Last administered on 10/12/18at 08:34; Admin Dose 40 ML; Start 10/10/18 at 09:00 Zolpidem Tartrate (Ambien) 5 mg HS PRN PO INSOMNIA Last administered on 10/12/18at 01:24; Admin Dose 5 MG; Start 10/09/18 at 14:00 Miscellaneous Information 1 ea NOTE XX ; Start 10/09/18 at 15:00 Glucose (Glutose) 15 gm Q15M PRN PO DECREASED GLUCOSE; Start 10/09/18 at 15:00 Glucose (Glutose) 22.5 gm Q15M PRN PO DECREASED GLUCOSE; Start 10/09/18 at 15:00 Dextrose (D50w Syringe) 25 ml Q15M PRN IV DECREASED GLUCOSE; Start 10/09/18 at 15:00 Dextrose (D50w Syringe) 50 ml Q15M PRN IV DECREASED GLUCOSE; Start 10/09/18 at 15:00 Glucagon (Glucagen) 1 mg Q15M PRN IM DECREASED GLUCOSE; Start 10/09/18 at 15:00 Glucose (Glutose) 15 gm Q15M PRN BUCCAL DECREASED GLUCOSE; Start 10/09/18 at 15:00 Sodium Chloride 500 ml @ 500 mls/hr Q1H PRN IV BLOOD PRESSURE SUPPORT Last administered on 10/10/18at 07:59; Admin Dose 500 MLS/HR; Start 10/09/18 at 19:30 Piperacillin Sod/ Tazobactam Sod 100 ml @ 200 mls/hr Q6 IVPB Last administered on 10/12/18at 11:24; Admin Dose 200 MLS/HR; Start 10/09/18 at 20:00 Albuterol (Ventolin Hfa) 4 puff Q6H RESP THERAPY INH Last administered on 10/12/18at 09:12; Admin Dose 4 PUFF; Start 10/10/18 at 02:00 Ipratropium [place] (Atrovent Hfa) 4 puff Q6H RESP THERAPY INH Last administered on 10/12/18 09:12; Admin Dose 4 PUFF; Start 10/10/18 at 02:00 Atenolol (Tenormin) 12.5 mg BID PO Last administered on 10/12/18at 08:36; Admin Dose 12.5 MG; Start 10/10/18 at 21:00 KEV ISSA MD Oct 12, 2018 14:06
--- NOTE | 2018-10-12 16:13 | CONS ---
Assessment/Plan Assessment/Plan Hospital Course (Demo Recall) # sepsis, respiratory - recurrent sepsis on 10/08/2018 due to aspiration pneumonia, HCAP - possible aspiration pneumonia, recurrent pneumonia due to citrobacter - acute on chronic hypoxic and hypercarbic respiratory failure - persistent leukocytosis likely due to pneumonia, partly due to steroid margination - h/o tracheostomy on 08/26/2018 - h/o "Increased mild left apical pneumothorax" per CXR on 09/19/2018; no pneumothorax mentioned on subsequent CXR - h/o pneumomediastinum - h/o VAT on 08/11/2018 - h/o asthma/COPD exacerbation - h/o acute tracheobronchitis - h/o MAC infection but CT chest did not demonstrate features suggestive of this per chart review - h/o HCAP due to citrobacter, based on resp culture on 09/13/2018 - h/o aspergillus growing out of resp culture per (pulm note by Dr. Lopez) on 07/25/2018 - h/o elevated 1,3 Estc-Z-yeupnj level = 232 on 08/06/2018 - h/o MSSA septicemia # GI - diarrhea, C diff on 10/09/2018 was negative - h/o HSV esophagitis, took acyclovir x21 days from 08/26/2018 - h/o EGD, esophageal biopsy showed esophageal squamous mucosa showing acute inflammation, granulation tissue, and ulceration consistent with ulcerative esophagitis, rare multinucleated cells with morphology suggestive of vial cytopathic changes, No cardiac mucosa, intestinal metaplasia, dysplasia, or malignancy defined - GERD - PUD # renal/ - Hypokalemia, recurrent - CKD 2 - BPH # cardiac - tachycardia, persistent - ACD - HTN - HLD # endo - T2DM - Hgb A1c 7.2% - secondary adrenal insufficiency; steroid dependent - Hypoparathyroidism - Hypercalcemia - Pamidronate was ordered # neuro - toxic metabolic encephalopathy - Cervical myopathy - Severe cervical spinal cord stenosis with cord compression from C3-C5, s/p laminectomy in ~03/2018 - Chronic pain syndrome - Functional quadriplegia - Seizure d/o # other chronic conditions - RA with chronic steroid dependence - Immunocompromised status - Fibromyalgia rheumatica - DDD - H/o multiple rib fracture - Pt completed: meropenem (09/25/2018-10/02/2018), vancomycin (09/25/18-09/28/18) recommendations - continue pip/tazo (10/09/2018-), plan for 5-7 days - continue Bactrim for pneumocystis PPX - management d/w Pt's RN Markus, the critical care time I took to care for this Pt today was from 1400to 1430 Consultation Date/Type/Reason Admit Date/Time Oct 09, 2018 at 12:16 Initial Consult Date 10/09/18 Type of Consult ID Requesting Provider: NOLA VIDAL MD Date/Time of Note DATE: 10/12/18 TIME: 16:11 24 HR Interval Summary Subjective hx not possible: other (limited (Pt has trach)) Detailed Summary Respiratory: shortness of breath; No cough Cardiovascular: no complaints Gastrointestinal: nausea, other (GT) Genitourinary: other (FC) Musculoskeletal: no complaints Exam/Review of Systems Exam Vitals Vital Signs Date Temp Pulse Resp B/P (MAP) Pulse Ox O2 O2 Flow FiO2 Time Delivery Rate 10/12/18 94 34 110/80 96 Mechanical 15:00 (90) Ventilator 10/12/18 97.8 12:00 10/12/18 60 11:24 Intake and Output 10/11/18 10/11/18 10/12/18 1515:00 23:00 07:00 IntakeIntake Total 450 ml 565 ml 1365 ml OutputOutput Total 1400 ml 780 ml 850 ml BalanceBalance -950 ml -215 ml 515 ml Constitutional: frail Psych: no complaints, nl mood/affect Head: normocephalic, atraumatic Eyes: nl conjunctiva, nl lids, nl sclera ENMT: nl external ears & nose, nl nasal mucosa & septum, mucosa pink and moist Neck: other (not swollen) Respiratory: crackles/rales Cardiovascular: regular rate and rhythm, nl pulses Gastrointestinal: soft, non-tender, other (PEG) Genitourinary - Male: other (FC) Musculoskeletal: nl extremities to inspection Extremities: No edema Neurological: lethargic Skin: ecchymosis Results Result Diagram: 10/12/18 0430 10/12/18 0430 Results 24hrs Laboratory Tests Test 10/11/18 20:27 10/12/18 01:35 10/12/18 04:30 10/12/18 08:52 Bedside Glucose 119 156 130 White Blood Count 14.9 H Red Blood Count 2.94 L Hemoglobin 8.3 L Hematocrit 27.9 L Mean Corpuscular 94.9 Volume Mean Corpuscular 28.2 L Hemoglobin Mean Corpuscular 29.7 L Hemoglobin Concent Red Cell 16.1 H Distribution Width Platelet Count 355 Mean Platelet Volume 10.9 H Immature 1.300 H Granulocytes % Neutrophils % 53.1 Lymphocytes % 10.1 L Monocytes % 12.9 H Eosinophils % 21.5 H Basophils % 1.1 Nucleated Red Blood 0.0 Cells % Immature 0.200 H Granulocytes # Neutrophils # 7.9 H Lymphocytes # 1.5 Monocytes # 1.9 H Eosinophils # 3.2 H Basophils # 0.2 H Nucleated Red Blood 0.0 Cells # Sodium Level 147 H Potassium Level 3.6 Chloride Level 105 Carbon Dioxide Level 36 H Anion Gap 6 Blood Urea Nitrogen 27 #H Creatinine 0.78 Est Glomerular > 60 Filtrat Rate mL/min Glucose Level 120 Calcium Level 9.5 Phosphorus Level 3.8 Magnesium Level 2.3 Iron Level 35 Total Iron Binding 182 L Capacity Percent Iron 19 L Saturation Ferritin 957.0 H Test 10/12/18 14:39 Bedside Glucose 119 Medications Medication Current Medications Acetaminophen (Tylenol Liquid) 650 mg Q4H PRN GTB MILD PAIN(1-3)OR ELEVATED TEMP Last administered on 10/10/18at 03:10; Admin Dose 650 MG; Start 10/09/18 at 14:00 Al Hydrox/Mg Hydrox/Simethicone (Mag-Al Plus) 15 ml Q6H PRN PO GASTROINTESTINAL UPSET; Start 10/09/18 at 14:00 Alprazolam (Xanax) 0.5 mg Q6 PRN GTB ANXIETY Last administered on 10/12/18at 08:36; Admin Dose 0.5 MG; Start 10/09/18 at 14:00 Eye Lubricant (Artificial Tears Oph) 1 drop Q6H PRN BOTH EYES DRY EYES; Start 10/09/18 at 14:00 Bisacodyl (Dulcolax Supp) 10 mg DAILY PRN [place] CONSTIPATION; Start 10/09/18 at 14:00 Clonidine (Catapres) 0.1 mg DAILY PRN GTB ELEVATED BLOOD PRESSURE; Start 10/09/18 at 14:00 Diltiazem HCl (Cardizem Iv) 5 mg Q4 PRN IV ELEVATED HEART RATE; Start 10/09/18 at 14:00 Diphenhydramine HCl (Benadryl Liquid Cup) 25 mg Q6 PRN GTB ITCHING; Start 10/09/18 at 14:00 Duloxetine HCl (Cymbalta) 30 mg DAILY PO Last administered on 10/12/18 08:35; Admin Dose 30 MG; Start 10/10/18 at 09:00 Epoetin Arpan (Epogen (Esrd)) 10,000 units TuSa@1300 SC Last administered on 10/11/18 13:54; Admin Dose 10,000 UNITS; Start 10/11/18 at 13:00 Fentanyl (Duragesic 25 Mcg/Hr Patch) 1 patch Q72H TRANSDERM Last administered on 10/11/18 15:08; Admin Dose 1 PATCH; Start 10/11/18 at 15:00 Gabapentin (Neurontin Liquid) 400 mg Q8 GTB Last administered on 10/12/18 14:28; Admin Dose 400 MG; Start 10/09/18 at 15:30 Hydralazine HCl (Apresoline) 10 mg Q4H PRN IV ELEVATED BLOOD PRESSURE; Start 10/09/18 at 14:00 Hydrocortisone (Cortef) 10 mg DAILY PO Last administered on 10/12/18 08:36; Admin Dose 10 MG; Start 10/10/18 at 09:00 Hydrocortisone (Cortef) 5 mg 1500 PO Last administered on 10/11/18 14:49; Admin Dose 5 MG; Start 10/09/18 at 15:00 Hydrocortisone (Cortef) 2.5 mg QHS PO Last administered on 10/11/18 20:29; Admin Dose 2.5 MG; Start 10/09/18 at 21:00 Hydromorphone HCl (Dilaudid) 4 mg Q4H PRN PO MODERATE PAIN LEVEL 4-6 Last administered on 10/12/18 14:29; Admin Dose 4 MG; Start 10/09/18 at 14:00 Hydromorphone HCl (Dilaudid) 8 mg Q4H PRN PO SEVERE PAIN LEVEL 7-10 Last administered on 10/12/18 08:37; Admin Dose 8 MG; Start 10/09/18 at 14:00 Hydroxychloroquine Sulfate (Plaquenil) 200 mg BID PO Last administered on 10/12/18 08:38; Admin Dose 200 MG; Start 10/09/18 at 21:00 Diagnostic Test (Pha) (Accu-Chek) 1 ea 02 XX Last administered on 10/12/18 01:40; Admin Dose 1 EA; Start 10/10/18 at 02:00 Insulin Aspart (Novolog Insulin Pen) NOVOLOG *CUSTOM* ALGORITHM Q6H SC Last administered on 10/12/18 01:38; Admin Dose 1 UNIT; Start 10/09/18 at 14:00 Lactobacillus Acidophilus (Florajen3 Capsule) 1 each BID GTB Last administered on 10/12/18 08:35; Admin Dose 1 EACH; Start 10/09/18 at 21:00 Lansoprazole (Prevacid) 30 mg BID@,18 GTB Last administered on 10/12/18 05:55; Admin Dose 30 MG; Start 10/09/18 at 18:00 Levetiracetam (Keppra Liquid) 500 mg BID GTB Last administered on 10/12/18 08:34; Admin Dose 500 MG; Start 10/09/18 at 21:00 Magnesium Oxide (Mag-Ox 400) 400 mg BID GTB Last administered on 10/12/18 08:36; Admin Dose 400 MG; Start 10/09/18 at 21:00 Metoclopramide HCl (Reglan) 10 mg TID IV Last administered on 10/12/18 14:00; Admin Dose 10 MG; Start 10/09/18 at 21:00 Miconazole Nitrate (Miconazole 2% Cr) 1 applic BID TOP Last administered on 10/12/18 08:34; Admin Dose 1 APPLIC; Start 10/09/18 at 21:00 Miconazole Nitrate (Miconazole 2% Cr) 1 applic Q12 PRN TOP rash; Start 10/09/18 at 14:00 Ondansetron HCl (Zofran Inj) 4 mg Q4H PRN IV NAUSEA AND/OR VOMITING Last administered on 10/12/18 11:23; Admin Dose 4 MG; Start 10/09/18 at 14:00 Polyethylene Glycol (Miralax) 17 gm DAILY PRN GTB CONSTIPATION; Start 10/09/18 at 14:00 Senna (Senokot) 2 tab Q8 PRN PO CONSTIPATION; Start 10/09/18 at 14:00 Trimethoprim/ Sulfamethoxazole (Bactrim Susp) 40 ml DAILY GTB Last administered on 10/12/18 08:34; Admin Dose 40 ML; Start 10/10/18 at 09:00 Zolpidem Tartrate (Ambien) 5 mg HS PRN PO INSOMNIA Last administered on 10/12/18 01:24; Admin Dose 5 MG; Start 10/09/18 at 14:00 Miscellaneous Information 1 ea NOTE XX ; Start 10/09/18 at 15:00 Glucose (Glutose) 15 gm Q15M PRN PO DECREASED GLUCOSE; Start 10/09/18 at 15:00 Glucose (Glutose) 22.5 gm Q15M PRN PO DECREASED GLUCOSE; Start 10/09/18 at 15:00 Dextrose (D50w Syringe) 25 ml Q15M PRN IV DECREASED GLUCOSE; Start 10/09/18 at 15:00 Dextrose (D50w Syringe) 50 ml Q15M PRN IV DECREASED GLUCOSE; Start 10/09/18 at 15:00 Glucagon (Glucagen) 1 mg Q15M PRN IM DECREASED GLUCOSE; Start 10/09/18 at 15:00 Glucose (Glutose) 15 gm Q15M PRN BUCCAL DECREASED GLUCOSE; Start 10/09/18 at 15:00 Sodium Chloride 500 ml @ 500 mls/hr Q1H PRN IV BLOOD PRESSURE SUPPORT Last administered on 10/10/18at 07:59; Admin Dose 500 MLS/HR; Start 10/09/18 at 19:30 Piperacillin Sod/ Tazobactam Sod 100 ml @ 200 mls/hr Q6 IVPB Last administered on 10/12/18at 11:24; Admin Dose 200 MLS/HR; Start 10/09/18 at 20:00 Albuterol (Ventolin Hfa) 4 puff Q6H RESP THERAPY INH Last administered on 10/12/18 09:12; Admin Dose 4 PUFF; Start 10/10/18 at 02:00 Ipratropium [place] (Atrovent Hfa) 4 puff Q6H RESP THERAPY INH Last administered on 10/12/18 09:12; Admin Dose 4 PUFF; Start 10/10/18 at 02:00 Atenolol (Tenormin) 12.5 mg BID PO Last administered on 2/27/19at 08:36; Admin Dose 12.5 MG; Start 10/10/18 at 21:00 NEMO MARTINEZ M.D. Oct 12, 2018 16:13
--- NOTE | 2018-10-12 16:44 | CONS ---
Assessment/Plan Assessment/Plan Assessment/Plan (Daily) Interval hx: On 60% FiO2. Unable to tolerate at 50% overnight. WBC are improving. Tolerating tube feeds. C diff negative. Rectal tube with brown liquid stool. 1. Respiratory failure secondary to pneumonia versus interstitial pneumonitis from rheumatoid arthritis versus mild aspiration. The patient was getting ice chips. There was no evidence of aspiration of formula. 2. Severe rheumatoid arthritis. 3. Quadriplegia. 4. Adrenal insufficiency. 5. Gastroparesis. 6. Hypothyroidism. 7. Chronic pain syndrome. 8. Hypertension. 9. Diarrhea PLAN: Stool cultures FOB Swallow eval Continue with tube feeds at 30cc/hr, check residuals q 4 hours Continue Reglan. Aspiration precautions Consultation Date/Type/Reason Admit Date/Time Oct 09, 2018 at 12:16 Initial Consult Date 10/12/18 Requesting Provider: NOLA VIDAL MD Date/Time of Note DATE: 10/12/18 TIME: 16:43 24 HR Interval Summary Constitutional: improved Exam/Review of Systems Exam Vitals Vital Signs Date Temp Pulse Resp B/P (MAP) Pulse Ox O2 O2 Flow FiO2 Time Delivery Rate 10/12/18 92 20 92 60 15:12 10/12/18 110/80 Mechanical 15:00 (90) Ventilator 10/12/18 97.8 12:00 Intake and Output 10/11/18 10/11/18 10/12/18 1515:00 23:00 07:00 IntakeIntake Total 450 ml 565 ml 1365 ml OutputOutput Total 1400 ml 780 ml 850 ml BalanceBalance -950 ml -215 ml 515 ml Constitutional: alert Head: normocephalic Eyes: EOMI Cardiovascular: regular rate and rhythm, nl pulses Gastrointestinal: non-tender Extremities: normal pulses Results Result Diagram: 10/12/18 0430 10/12/18 0430 Results 24hrs Laboratory Tests Test 10/11/18 20:27 10/12/18 01:35 10/12/18 04:30 10/12/18 08:52 Bedside Glucose 119 156 130 White Blood Count 14.9 H Red Blood Count 2.94 L Hemoglobin 8.3 L Hematocrit 27.9 L Mean Corpuscular 94.9 Volume Mean Corpuscular 28.2 L Hemoglobin Mean Corpuscular 29.7 L Hemoglobin Concent Red Cell 16.1 H Distribution Width Platelet Count 355 Mean Platelet Volume 10.9 H Immature 1.300 H Granulocytes % Neutrophils % 53.1 Lymphocytes % 10.1 L Monocytes % 12.9 H Eosinophils % 21.5 H Basophils % 1.1 Nucleated Red Blood 0.0 Cells % Immature 0.200 H Granulocytes # Neutrophils # 7.9 H Lymphocytes # 1.5 Monocytes # 1.9 H Eosinophils # 3.2 H Basophils # 0.2 H Nucleated Red Blood 0.0 Cells # Sodium Level 147 H Potassium Level 3.6 Chloride Level 105 Carbon Dioxide Level 36 H Anion Gap 6 Blood Urea Nitrogen 27 #H Creatinine 0.78 Est Glomerular > 60 Filtrat Rate mL/min Glucose Level 120 Calcium Level 9.5 Phosphorus Level 3.8 Magnesium Level 2.3 Iron Level 35 Total Iron Binding 182 L Capacity Percent Iron 19 L Saturation Ferritin 957.0 H Test 10/12/18 14:39 Bedside Glucose 119 Medications Medication Current Medications Acetaminophen (Tylenol Liquid) 650 mg Q4H PRN GTB MILD PAIN(1-3)OR ELEVATED TEMP Last administered on 10/10/18at 03:10; Admin Dose 650 MG; Start 10/09/18 at 14:00 Al Hydrox/Mg Hydrox/Simethicone (Mag-Al Plus) 15 ml Q6H PRN PO GASTROINTESTINAL UPSET; Start 10/09/18 at 14:00 Alprazolam (Xanax) 0.5 mg Q6 PRN GTB ANXIETY Last administered on 10/12/18at 08:36; Admin Dose 0.5 MG; Start 10/09/18 at 14:00 Eye Lubricant (Artificial Tears Oph) 1 drop Q6H PRN BOTH EYES DRY EYES; Start 10/09/18 at 14:00 Bisacodyl (Dulcolax Supp) 10 mg DAILY PRN [place] CONSTIPATION; Start 10/09/18 at 14:00 Clonidine (Catapres) 0.1 mg DAILY PRN GTB ELEVATED BLOOD PRESSURE; Start 10/09/18 at 14:00 Diltiazem HCl (Cardizem Iv) 5 mg Q4 PRN IV ELEVATED HEART RATE; Start 10/09/18 at 14:00 Diphenhydramine HCl (Benadryl Liquid Cup) 25 mg Q6 PRN GTB ITCHING; Start 10/09/18 at 14:00 Duloxetine HCl (Cymbalta) 30 mg DAILY PO Last administered on 10/12/18 08:35; Admin Dose 30 MG; Start 10/10/18 at 09:00 Epoetin Arpan (Epogen (Esrd)) 10,000 units TuSa@1300 SC Last administered on 10/11/18 13:54; Admin Dose 10,000 UNITS; Start 10/11/18 at 13:00 Fentanyl (Duragesic 25 Mcg/Hr Patch) 1 patch Q72H TRANSDERM Last administered on 10/11/18 15:08; Admin Dose 1 PATCH; Start 10/11/18 at 15:00 Gabapentin (Neurontin Liquid) 400 mg Q8 GTB Last administered on 10/12/18 14:28; Admin Dose 400 MG; Start 10/09/18 at 15:30 Hydralazine HCl (Apresoline) 10 mg Q4H PRN IV ELEVATED BLOOD PRESSURE; Start 10/09/18 at 14:00 Hydrocortisone (Cortef) 10 mg DAILY PO Last administered on 10/12/18 08:36; Admin Dose 10 MG; Start 10/10/18 at 09:00 Hydrocortisone (Cortef) 5 mg 1500 PO Last administered on 10/12/18 16:00; Admin Dose 5 MG; Start 10/09/18 at 15:00 Hydrocortisone (Cortef) 2.5 mg QHS PO Last administered on 10/11/18 20:29; Admin Dose 2.5 MG; Start 10/09/18 at 21:00 Hydromorphone HCl (Dilaudid) 4 mg Q4H PRN PO MODERATE PAIN LEVEL 4-6 Last administered on 10/12/18 14:29; Admin Dose 4 MG; Start 10/09/18 at 14:00 Hydromorphone HCl (Dilaudid) 8 mg Q4H PRN PO SEVERE PAIN LEVEL 7-10 Last administered on 10/12/18 08:37; Admin Dose 8 MG; Start 10/09/18 at 14:00 Hydroxychloroquine Sulfate (Plaquenil) 200 mg BID PO Last administered on 10/12/18 08:38; Admin Dose 200 MG; Start 10/09/18 at 21:00 Diagnostic Test (Pha) (Accu-Chek) 1 ea 02 XX Last administered on 10/12/18 01:40; Admin Dose 1 EA; Start 10/10/18 at 02:00 Insulin Aspart (Novolog Insulin Pen) NOVOLOG *CUSTOM* ALGORITHM Q6H SC Last administered on 10/12/18 01:38; Admin Dose 1 UNIT; Start 10/09/18 at 14:00 Lactobacillus Acidophilus (Florajen3 Capsule) 1 each BID GTB Last administered on 10/12/18 08:35; Admin Dose 1 EACH; Start 10/09/18 at 21:00 Lansoprazole (Prevacid) 30 mg BID@,18 GTB Last administered on 10/12/18 05:55; Admin Dose 30 MG; Start 10/09/18 at 18:00 Levetiracetam (Keppra Liquid) 500 mg BID GTB Last administered on 10/12/18 08:34; Admin Dose 500 MG; Start 10/09/18 at 21:00 Magnesium Oxide (Mag-Ox 400) 400 mg BID GTB Last administered on 10/12/18 08:36; Admin Dose 400 MG; Start 10/09/18 at 21:00 Metoclopramide HCl (Reglan) 10 mg TID IV Last administered on 10/12/18 14:00; Admin Dose 10 MG; Start 10/09/18 at 21:00 Miconazole Nitrate (Miconazole 2% Cr) 1 applic BID TOP Last administered on 10/12/18 08:34; Admin Dose 1 APPLIC; Start 10/09/18 at 21:00 Miconazole Nitrate (Miconazole 2% Cr) 1 applic Q12 PRN TOP rash; Start 10/09/18 at 14:00 Ondansetron HCl (Zofran Inj) 4 mg Q4H PRN IV NAUSEA AND/OR VOMITING Last administered on 10/12/18 11:23; Admin Dose 4 MG; Start 10/09/18 at 14:00 Polyethylene Glycol (Miralax) 17 gm DAILY PRN GTB CONSTIPATION; Start 10/09/18 at 14:00 Senna (Senokot) 2 tab Q8 PRN PO CONSTIPATION; Start 10/09/18 at 14:00 Trimethoprim/ Sulfamethoxazole (Bactrim Susp) 40 ml DAILY GTB Last administered on 10/12/18 08:34; Admin Dose 40 ML; Start 10/10/18 at 09:00 Zolpidem Tartrate (Ambien) 5 mg HS PRN PO INSOMNIA Last administered on 10/12/18at 01:24; Admin Dose 5 MG; Start 10/09/18 at 14:00 Miscellaneous Information 1 ea NOTE XX ; Start 10/09/18 at 15:00 Glucose (Glutose) 15 gm Q15M PRN PO DECREASED GLUCOSE; Start 10/09/18 at 15:00 Glucose (Glutose) 22.5 gm Q15M PRN PO DECREASED GLUCOSE; Start 10/09/18 at 15:00 Dextrose (D50w Syringe) 25 ml Q15M PRN IV DECREASED GLUCOSE; Start 10/09/18 at 15:00 Dextrose (D50w Syringe) 50 ml Q15M PRN IV DECREASED GLUCOSE; Start 10/09/18 at 15:00 Glucagon (Glucagen) 1 mg Q15M PRN IM DECREASED GLUCOSE; Start 10/09/18 at 15:00 Glucose (Glutose) 15 gm Q15M PRN BUCCAL DECREASED GLUCOSE; Start 10/09/18 at 15:00 Sodium Chloride 500 ml @ 500 mls/hr Q1H PRN IV BLOOD PRESSURE SUPPORT Last administered on 10/10/18at 07:59; Admin Dose 500 MLS/HR; Start 10/09/18 at 19:30 Piperacillin Sod/ Tazobactam Sod 100 ml @ 200 mls/hr Q6 IVPB Last administered on 10/12/18at 11:24; Admin Dose 200 MLS/HR; Start 10/09/18 at 20:00 Albuterol (Ventolin Hfa) 4 puff Q6H RESP THERAPY INH Last administered on 10/12/18at 09:12; Admin Dose 4 PUFF; Start 10/10/18 at 02:00 Ipratropium [place] (Atrovent Hfa) 4 puff Q6H RESP THERAPY INH Last administered on 10/12/18 09:12; Admin Dose 4 PUFF; Start 10/10/18 at 02:00 Atenolol (Tenormin) 12.5 mg BID PO Last administered on 10/12/18at 08:36; Admin Dose 12.5 MG; Start 10/10/18 at 21:00 BHAVIK RUBIO MD Oct 12, 2018 16:44
--- NOTE | 2018-10-12 23:23 | PN ---
DATE: 10/12/2018 SUBJECTIVE: Follow up on [id number] respiratory failure, C-spine quadriplegia, hypoparathyroid ism with recent hypercalcemia, rheumatoid arthritis, immunocompromised status, and recent sepsis due to aspiration/healthcare facility-acquired pneumonia. The patient is breathing comfortably on vent. FIO2 is down to 60%. The patient remains awake and responsive although weak. No reported temperatu re spike today. No reported bleeding from any site. PHYSICAL EXAMINATION: GENERAL: The patient is awake and responsive. VITAL SIGNS: Temperature 97.8, pulse 93, respiration 25, O2 saturation 97%, and blood pressure 110/8 0. HEENT: No eye discharge or redness. Conjunctivae and lids normal. NECK: No mass. Tracheostomy in place. CHEST: Diminished air entry at bases. CARDIOVASCULAR: S1 and S2 normal. ABDOMEN: Soft. Nondistended and nontender. EXTREMITIES: No edema. NEUROLOGIC: The patient is awake and is quadriplegic. LABORATORY DATA: Done today, WBC 14.9, hemoglobin 8.3, and platelets 355. Sodium 147, potassium 3.6 , BUN 27, creatinine 0.7, and calcium 9.5. IMPRESSION: 1. Recent sepsis possibly due to pneumonia as described above. Continue IV Zosyn. Continue Septra- DS due to chronic steroid dependence. 2. Seizure disorder, stable with Keppra. 3. Dysphagia. Continue G-tube feeding. 4. Vent-dependent respiratory failure. 5. Hypothyroidism. Continue supplement. 6. Chronic pain syndrome, controlled with the fentanyl patch and Neurontin. Dictated By: NOLA VIDAL MD AB/EFREN Conf#: [id number] DID#: [id number] CC: BRISA HAQUE MD; DALTON DURBIN MD; NOLA VIDAL MD;*EndCC*
[2018-10-13] VITALS (35 sets, daily range): BP systolic 86–129; BP diastolic 64–87; PULSE 87–121; RESP 18–38
[2018-10-13] MEDS: ALBUTEROL HFA 8 GM INHALER INH SCH ×4 (01:45→21:51)
[2018-10-13] MEDS: IPRATROPIUM (HFA) 12.9 GM INHALER INH SCH ×4 (01:45→21:51)
[2018-10-13] MEDS: ACCU-CHEK XX SCH (02:00)
[2018-10-13] MEDS: INSULIN ASPART [NOVOLOG] 3 ML PEN SC SCH ×4 (02:00→20:00)
[2018-10-13] MEDS: ALPRAZOLAM 0.5 MG TAB GTB PRN ×2 (03:10→09:06)
[2018-10-13] MEDS: ONDANSETRON 4 MG INJ IV PRN ×2 (03:10→09:09)
[2018-10-13] MEDS: HYDROmorphONE 2 MG TAB PO PRN ×4 (04:50→20:02)
[2018-10-13] MEDS: LANSOPRAZOLE 30 MG CAP GTB SCH ×2 (05:01→17:26)
[2018-10-13] MEDS: PIPER-TAZO 3.375 GM IV (PMX) 100 ML IVPB SCH ×4 (05:01→23:27)
[2018-10-13] MEDS: GABAPENTIN (50 MG/ML PO SYG) GTB SCH ×3 (05:01→21:00)
--- NOTE | 2018-10-13 08:36 | PN ---
DATE: 10/13/2018 SUBJECTIVE: The patient is stable on full ventilatory support. No other acute events noted. OBJECTIVE: VITAL SIGNS: Blood pressure is 100/74, respirations 21, pulse 93, temperature 97.8. HEENT: Head is normocephalic. NECK: Supple. HEART: Regular rate. LUNGS: Show diminished breath sounds at the base. ABDOMEN: Soft, nontender to palpation without rebound or guarding. EXTREMITIES: Negative for clubbing, cyanosis, no edema. DERMATOLOGIC: No rashes. MUSCULOSKELETAL: No joint effusion. NEUROLOGIC: No change in exam. MEDICATIONS: The patient's medications have been reviewed. LABORATORY DATA: Shows white count 16.7, hemoglobin 9.0, platelet count is 381. Sodium 139, potassi um 3.8, BUN 18, creatinine 0.63. The patient's cultures have been reviewed. ASSESSMENT AND PLAN: 1. Nonoliguric acute kidney injury on top of chronic kidney disease. Etiology of acute kidney injur y is secondary to hemodynamics. The patient's renal function is improving. Continue current treatme nt plans, supportive care, renally dose all medicines. 2. Hypernatremia, improved. Etiology is likely due to insensible losses. Continue free water flush es, continue to monitor sodium levels. 3. Anemia. Continue to monitor hemoglobin and hematocrit levels. 4. Mineral bone disorder, monitor calcium and phosphorus levels. 5. Ventilator-dependent respiratory failure. Vent settings and ABG was reviewed. Continue to monit or. 6. Dysphagia, status post percutaneous endoscopic gastrostomy. Continue tube feeding. 7. Quadriplegia. Continue to monitor. 8. Sepsis secondary to pneumonia. Continue current antibiotic regimen. 9. Tachyarrhythmia. Continue current medical management. 10. Chronic encephalopathy. 11. Chronic pain syndrome. Continue current pain regimen. 12. Seizure disorder. Continue current treatment plan. 13. Rheumatoid arthritis. 14. Adrenal insufficiency. Continue Cortef. Dictated By: UNA ROY DO NR/NTS Conf#: [id number] DID#: [id number] CC: DALTON DURBIN MD; NOLA VIDAL MD;*EndCC*
[2018-10-13] MEDS: LEVETIRACETAM (100 MG/ML) 5ML CUP GTB SCH ×2 (08:52→20:45)
[2018-10-13] MEDS: DULOXETINE 30 MG CAP DR PO SCH (08:52)
[2018-10-13] MEDS: HYDROCORTISONE 5 MG TAB PO SCH ×3 (08:53→20:47)
[2018-10-13] MEDS: HYDROXYCHLOROQUINE 200 MG TAB PO SCH ×2 (08:53→20:45)
[2018-10-13] MEDS: MAGNESIUM OXIDE 400 MG TAB GTB SCH ×2 (08:53→20:48)
[2018-10-13] MEDS: ATENOLOL 25 MG TAB PO SCH ×2 (08:53→21:01)
[2018-10-13] MEDS: METOCLOPRAMIDE 10 MG INJ IV SCH ×3 (08:54→20:45)
[2018-10-13] MEDS: TRIMETHOPRIM/SULFAMETHOX (PO SYG) GTB SCH (08:54)
[2018-10-13] MEDS: MICONAZOLE 2% 30 GM CR TOP SCH ×2 (08:55→20:48)
[2018-10-13] MEDS: BALSAM PERU/CASTOR OIL 60 GM TUBE TOP SCH ×2 (08:56→20:49)
[2018-10-13] MEDS: L ACIDOPHIL/B LACTIS/B LONGUM CAPSULE GTB SCH ×2 (09:05→20:47)
--- NOTE | 2018-10-13 10:36 | CONS ---
Consult Date/Type/Reason Admit Date/Time Oct 09, 2018 at 12:16 Initial Consult Date 10/09/18 Type of Consult Pulmonary Requesting Provider: NOLA VIDAL MD Date/Time of Note DATE: 10/13/18 TIME: 10:32 Subjective Patient remained stable. Increased FiO2 overnight to 80%. Remains awake and alert following simple commands no hemodynamic instability. Objective Vital Signs Date Temp Pulse Resp B/P (MAP) Pulse Ox O2 O2 Flow FiO2 Time Delivery Rate 10/13/18 99 24 90/66 (74) 95 Mechanical 10:00 Ventilator 10/13/18 70 09:29 10/13/18 98.3 08:00 Intake and Output 10/12/18 10/12/18 10/13/18 1515:00 23:00 07:00 IntakeIntake Total 815 ml 810 ml 960 ml OutputOutput Total 610 ml 360 ml 495 ml BalanceBalance 205 ml 450 ml 465 ml Exam PHYSICAL EXAMINATION: GENERAL: Elderly-appearing gentleman, now awake, alert, oriented on mechanical ventilation. VITAL SIGNS: NECK: Trach site clean and intact. CARDIAC: S1, S2, no added sounds or murmurs. CHEST: Diminished air entry bilaterally. ABDOMEN: Soft, nontender. No guarding or rebound. EXTREMITIES: No cyanosis, clubbing or edema. NEUROLOGIC: Generalized weakness. Vent Setting Ventilator Support Mode: PC Fraction of Inspired Oxygen pe: 70 Positive End Expiratory Pressu: 5.0 Results/Medications Result Diagram: 10/13/18 0450 10/13/18 0451 Results 24 hrs Laboratory Tests Test 10/12/18 14:39 10/12/18 16:36 10/12/18 19:58 10/13/18 03:08 Bedside Glucose 119 95 101 Blood Gas Blood arterial Specimen Source Arterial Blood 10/12/2018 5:20:4 Date Drawn 7 PM Arterial Blood pH 7.383 (Temp corrected) Arterial Blood 57.3 H pCO2 (Temp correct) Arterial Blood 74.8 L pO2 (Temp corrected) Arterial Blood 33.4 H HCO3 Arterial Blood 7.2 H Base Excess Arterial Blood 93.2 L Oxygen Saturation [place] Test ACCEPTAB Arterial Blood Left Radial Gas Puncture Site Arterial 0.3 Blood Carboxyhemo globin Arterial Blood 0.5 Methemoglobin Blood Gas A-a O2 290.0 H Differential Oxyhemoglobin 92.5 L Percent Blood Gas 37.0 Temperature Blood Gas 20.0 Respiration Rate Blood Gas Actual 20 Respiration Rate Blood Gas VENT - PC Modality FiO2 60.0 Blood Gas Low 5.0 PEEP Setting Blood Gas 28.0 Inspiratory Pressure Blood Gas SUSAN RT Notified Whom Blood Gas 10/12/2018 5:34:5 Notified Time 6 PM Test 10/13/18 04:50 10/13/18 04:51 10/13/18 08:48 White Blood Count 16.7 H Red Blood Count 3.20 L Hemoglobin 9.0 L Hematocrit 30.4 L Mean Corpuscular 95.0 Volume Mean Corpuscular 28.1 L Hemoglobin Mean Corpuscular 29.6 L Hemoglobin Concen t Red Cell 15.8 H Distribution Width Platelet Count 381 Mean Platelet 10.8 H Volume Immature 0.200 Granulocytes % Neutrophils % 74.1 Lymphocytes % 11.4 L Monocytes % 10.8 Eosinophils % 2.2 Basophils % 1.3 Nucleated Red 0.0 Blood Cells % Immature 0.030 Granulocytes # Neutrophils # 12.4 H Lymphocytes # 1.9 Monocytes # 1.8 H Eosinophils # 0.4 Basophils # 0.2 H Nucleated Red 0.0 Blood Cells # Sodium Level 139 Potassium Level 3.8 Chloride Level 103 Carbon Dioxide 32 H Level Anion Gap 4 L Blood Urea 18 # Nitrogen Creatinine 0.63 Est Glomerular > 60 Filtrat Rate mL/min Glucose Level 87 Calcium Level 8.7 Phosphorus Level 3.6 Magnesium Level 1.9 Bedside Glucose 110 Medications Current Medications Acetaminophen (Tylenol Liquid) 650 mg Q4H PRN GTB MILD PAIN(1-3)OR ELEVATED TEMP Last administered on 10/10/18at 03:10; Admin Dose 650 MG; Start 10/09/18 at 14:00 Al Hydrox/Mg Hydrox/Simethicone (Mag-Al Plus) 15 ml Q6H PRN PO GASTROINTESTINAL UPSET; Start 10/09/18 at 14:00 Alprazolam (Xanax) 0.5 mg Q6 PRN GTB ANXIETY Last administered on 10/13/18at 09:06; Admin Dose 0.5 MG; Start 10/09/18 at 14:00 Eye Lubricant (Artificial Tears Oph) 1 drop Q6H PRN BOTH EYES DRY EYES; Start 10/09/18 at 14:00 Bisacodyl (Dulcolax Supp) 10 mg DAILY PRN [place] CONSTIPATION; Start 10/09/18 at 14:00 Clonidine (Catapres) 0.1 mg DAILY PRN GTB ELEVATED BLOOD PRESSURE; Start 10/09 at 14:00 Diltiazem HCl (Cardizem Iv) 5 mg Q4 PRN IV ELEVATED HEART RATE; Start 10/09/18 at 14:00 Diphenhydramine HCl (Benadryl Liquid Cup) 25 mg Q6 PRN GTB ITCHING; Start 10/09/18 at 14:00 Duloxetine HCl (Cymbalta) 30 mg DAILY PO Last administered on 10/13/18 08:52; Admin Dose 30 MG; Start 10/10/18 at 09:00 Epoetin Arpan (Epogen (Esrd)) 10,000 units TuSa@1300 SC Last administered on 10/11/18 13:54; Admin Dose 10,000 UNITS; Start 10/11/18 at 13:00 Fentanyl (Duragesic 25 Mcg/Hr Patch) 1 patch Q72H TRANSDERM Last administered on 10/11/18at 15:08; Admin Dose 1 PATCH; Start 10/11/18 at 15:00 Gabapentin (Neurontin Liquid) 400 mg Q8 GTB Last administered on 10/13/18 05:01; Admin Dose 400 MG; Start 10/09/18 at 15:30 Hydralazine HCl (Apresoline) 10 mg Q4H PRN IV ELEVATED BLOOD PRESSURE; Start 10/09/18 at 14:00 Hydrocortisone (Cortef) 10 mg DAILY PO Last administered on 10/13/18 08:53; Admin Dose 10 MG; Start 10/10/18 at 09:00 Hydrocortisone (Cortef) 5 mg 1500 PO Last administered on 10/12/18 16:00; Admin Dose 5 MG; Start 10/09/18 at 15:00 Hydrocortisone (Cortef) 2.5 mg QHS PO Last administered on 10/12/18 20:01; Admin Dose 2.5 MG; Start 10/09/18 at 21:00 Hydromorphone HCl (Dilaudid) 4 mg Q4H PRN PO MODERATE PAIN LEVEL 4-6 Last administered on 10/12/18 14:29; Admin Dose 4 MG; Start 10/09/18 at 14:00 Hydromorphone HCl (Dilaudid) 8 mg Q4H PRN PO SEVERE PAIN LEVEL 7-10 Last administered on 10/13/18 09:07; Admin Dose 8 MG; Start 10/09/18 at 14:00 Hydroxychloroquine Sulfate (Plaquenil) 200 mg BID PO Last administered on 10/13/18 08:53; Admin Dose 200 MG; Start 10/09/18 at 21:00 Diagnostic Test (Pha) (Accu-Chek) 1 ea 02 XX Last administered on 10/12/18 01:40; Admin Dose 1 EA; Start 10/10/18 at 02:00 Insulin Aspart (Novolog Insulin Pen) NOVOLOG *CUSTOM* ALGORITHM Q6H SC Last administered on 10/12/18 01:38; Admin Dose 1 UNIT; Start 10/09/18 at 14:00 Lactobacillus Acidophilus (Florajen3 Capsule) 1 each BID GTB Last administered on 10/13/18 09:05; Admin Dose 1 EACH; Start 10/09/18 at 21:00 Lansoprazole (Prevacid) 30 mg BID@ GTB Last administered on 10/13/18 05:01; Admin Dose 30 MG; Start 10/09/18 at 18:00 Levetiracetam (Keppra Liquid) 500 mg BID GTB Last administered on 10/13/18 08:52; Admin Dose 500 MG; Start 10/09/18 at 21:00 Magnesium Oxide (Mag-Ox 400) 400 mg BID GTB Last administered on 10/13/18 08:53; Admin Dose 400 MG; Start 10/09/18 at 21:00 Metoclopramide HCl (Reglan) 10 mg TID IV Last administered on 10/13/18 08:54; Admin Dose 10 MG; Start 10/09/18 at 21:00 Miconazole Nitrate (Miconazole 2% Cr) 1 applic BID TOP Last administered on 10/13/18 08:55; Admin Dose 1 APPLIC; Start 10/09/18 at 21:00 Miconazole Nitrate (Miconazole 2% Cr) 1 applic Q12 PRN TOP rash; Start 10/09/18 at 14:00 Ondansetron HCl (Zofran Inj) 4 mg Q4H PRN IV NAUSEA AND/OR VOMITING Last administered on 10/13/18 09:09; Admin Dose 4 MG; Start 10/09/18 at 14:00 Polyethylene Glycol (Miralax) 17 gm DAILY PRN GTB CONSTIPATION; Start 10/09/18 at 14:00 Senna (Senokot) 2 tab Q8 PRN PO CONSTIPATION; Start 10/09/18 at 14:00 Trimethoprim/ Sulfamethoxazole (Bactrim Susp) 40 ml DAILY GTB Last administered on 10/13/18at 08:54; Admin Dose 40 ML; Start 10/10/18 at 09:00 Zolpidem Tartrate (Ambien) 5 mg HS PRN PO INSOMNIA Last administered on 10/12/18at 21:28; Admin Dose 5 MG; Start 10/09/18 at 14:00 Miscellaneous Information 1 ea NOTE XX ; Start 10/09/18 at 15:00 Glucose (Glutose) 15 gm Q15M PRN PO DECREASED GLUCOSE; Start 10/09/18 at 15:00 Glucose (Glutose) 22.5 gm Q15M PRN PO DECREASED GLUCOSE; Start 10/09/18 at 15:00 Dextrose (D50w Syringe) 25 ml Q15M PRN IV DECREASED GLUCOSE; Start 10/09/18 at 15:00 Dextrose (D50w Syringe) 50 ml Q15M PRN IV DECREASED GLUCOSE; Start 10/09/18 at 15:00 Glucagon (Glucagen) 1 mg Q15M PRN IM DECREASED GLUCOSE; Start 10/09/18 at 15:00 Glucose (Glutose) 15 gm Q15M PRN BUCCAL DECREASED GLUCOSE; Start 10/09/18 at 15:00 Sodium Chloride 500 ml @ 500 mls/hr Q1H PRN IV BLOOD PRESSURE SUPPORT Last administered on 10/10/18at 07:59; Admin Dose 500 MLS/HR; Start 10/09/18 at 19:30 Piperacillin Sod/ Tazobactam Sod 100 ml @ 200 mls/hr Q6 IVPB Last administered on 10/13/18at 05:01; Admin Dose 200 MLS/HR; Start 10/09/18 at 20:00 Albuterol (Ventolin Hfa) 4 puff Q6H RESP THERAPY INH Last administered on 10/13/18at 07:58; Admin Dose 4 PUFF; Start 10/10/18 at 02:00 Ipratropium [place] (Atrovent Hfa) 4 puff Q6H RESP THERAPY INH Last administered on 10/13/18at 07:57; Admin Dose 4 PUFF; Start 10/10/18 at 02:00 Atenolol (Tenormin) 12.5 mg BID PO Last administered on 10/13/18at 08:53; Admin Dose 12.5 MG; Start 10/10/18 at 21:00 Lorazepam (Ativan) 1 mg Q4 PRN IV AGITATION/ANXIETY; Start 10/13/18 at 10:00 Assessment/Plan Hospital Course (Demo Recall) IMPRESSION: 1. Acute on chronic hypoxemic respiratory failure with underlying acute respiratory distress syndrome. 2. History of HSV esophagitis. 3. Chronic sepsis. 4. History of rheumatoid arthritis. 5. C-spine disease with functional quadriplegia. 6. Dysphagia with G-tube. PLAN: 1. Continue bronchodilators. 2. Pressure control ventilation. 3. Decrease FIO2 and PEEP as tolerated. Currently increased requirements of the radiographically no change. 4. Bronchodilator treatment. 5. Deep vein thrombosis and gastrointestinal prophylaxis. Overall prognosis extremely poor. Unlikely to be liberated from mechanical ventilation. Goals of care needs to be discussed with family and recommend family conference . DALTON DURBIN MD, [facility] Oct 13, 2018 10:36
[2018-10-13] MEDS: LORAZEPAM 2 MG INJ IV PRN ×2 (11:26→22:27)
--- NOTE | 2018-10-13 12:53 | CONS ---
Assessment/Plan Assessment/Plan Hospital Course (Demo Recall) IMPRESSION: 1. Tachycardia at this time in the setting of fevers and respiratory distress, most consistent with sinus tachycardia likely driving this process. 2. Hypertension with borderline hypotension at this time. -still borderline Hotn 3. Abnormal electrocardiogram at baseline. 4. Chronic respiratory failure, status post tracheostomy.-weaning vent support 5. Dysphagia, status post G-tube. 6. Quadriplegia. 7. Renal insufficiency, on steroids. 8. Chronic obstructive pulmonary disease. 9. Rheumatoid arthritis. 10. Chronic kidney disease. 11. Diabetes mellitus. Recc -ICU -Vent support as necessary -Follow volume status clsoely -Continue abx's and f/u cx data -continue steroids -low dose BB as tolerated only Consultation Date/Type/Reason Admit Date/Time Oct 09, 2018 at 12:16 Initial Consult Date 10/09/18 Type of Consult Cardiology Reason for Consultation tachycardia Requesting Provider: NOLA VIDAL MD Date/Time of Note DATE: 10/13/18 TIME: 12:48 Exam/Review of Systems Vital Signs Vitals Vital Signs Date Temp Pulse Resp B/P (MAP) Pulse Ox O2 O2 Flow FiO2 Time Delivery Rate 10/13/18 80 11:30 10/13/18 108 32 100 11:18 10/13/18 90/66 (74) Mechanical 10:00 Ventilator 10/13/18 98.3 08:00 Intake and Output 10/12/18 10/12/18 10/13/18 1515:00 23:00 07:00 IntakeIntake Total 815 ml 810 ml 960 ml OutputOutput Total 610 ml 360 ml 495 ml BalanceBalance 205 ml 450 ml 465 ml Exam Exam Review of Systems: CONSTITUTIONAL: No fevers, chills. PULMONARY: No sob CARDIOVASCULAR: No chest pain/palpitations GASTROINTESTINAL: No nausea/vomiting. GENITOURINARY: No hematuria/dysuria. MUSCULOSKELETAL: No myagias/arthalgias. PSYCHIATRIC: The patient denies depression. NEUROLOGIC: No weakness Constitutional: other (sleeping, arousable) Psych: no complaints Head: normocephalic ENMT: mucosa pink and moist Neck: supple, jvd ( 9 cm water), other (trached) Respiratory: diminished breath sounds (at bases/B) Cardiovascular: regular rate and rhythm Gastrointestinal: soft, non-tender Musculoskeletal: muscle tone (normal) Extremities: edema (none) Neurological: other (quadriplegia) Labs Result Diagram: 10/13/18 0450 10/13/18 0451 Results 24hrs Laboratory Tests Test 10/12/18 14:39 10/12/18 16:36 10/12/18 19:58 10/13/18 03:08 Bedside Glucose 119 95 101 Blood Gas Blood arterial Specimen Source Arterial Blood 10/12/2018 5:20:4 Date Drawn 7 PM Arterial Blood pH 7.383 (Temp corrected) Arterial Blood 57.3 H pCO2 (Temp correct) Arterial Blood 74.8 L pO2 (Temp corrected) Arterial Blood 33.4 H HCO3 Arterial Blood 7.2 H Base Excess Arterial Blood 93.2 L Oxygen Saturation Chandler Test ACCEPTAB Arterial Blood Left Radial Gas Puncture Site Arterial 0.3 Blood Carboxyhemo globin Arterial Blood 0.5 Methemoglobin Blood Gas A-a O2 290.0 H Differential Oxyhemoglobin 92.5 L Percent Blood Gas 37.0 Temperature Blood Gas 20.0 Respiration Rate Blood Gas Actual 20 Respiration Rate Blood Gas VENT - PC Modality FiO2 60.0 Blood Gas Low 5.0 PEEP Setting Blood Gas 28.0 Inspiratory Pressure Blood Gas SUSAN RT Notified Whom Blood Gas 10/12/2018 5:34:5 Notified Time 6 PM Test 10/13/18 04:50 10/13/18 04:51 10/13/18 08:48 White Blood Count 16.7 H Red Blood Count 3.20 L Hemoglobin 9.0 L Hematocrit 30.4 L Mean Corpuscular 95.0 Volume Mean Corpuscular 28.1 L Hemoglobin Mean Corpuscular 29.6 L Hemoglobin Concen t Red Cell 15.8 H Distribution Width Platelet Count 381 Mean Platelet 10.8 H Volume Immature 0.200 Granulocytes % Neutrophils % 74.1 Lymphocytes % 11.4 L Monocytes % 10.8 Eosinophils % 2.2 Basophils % 1.3 Nucleated Red 0.0 Blood Cells % Immature 0.030 Granulocytes # Neutrophils # 12.4 H Lymphocytes # 1.9 Monocytes # 1.8 H Eosinophils # 0.4 Basophils # 0.2 H Nucleated Red 0.0 Blood Cells # Sodium Level 139 Potassium Level 3.8 Chloride Level 103 Carbon Dioxide 32 H Level Anion Gap 4 L Blood Urea 18 # Nitrogen Creatinine 0.63 Est Glomerular > 60 Filtrat Rate mL/min Glucose Level 87 Calcium Level 8.7 Phosphorus Level 3.6 Magnesium Level 1.9 Bedside Glucose 110 Medications Medications Current Medications Acetaminophen (Tylenol Liquid) 650 mg Q4H PRN GTB MILD PAIN(1-3)OR ELEVATED TEMP Last administered on 10/10/18at 03:10; Admin Dose 650 MG; Start 10/09/18 at 14:00 Al Hydrox/Mg Hydrox/Simethicone (Mag-Al Plus) 15 ml Q6H PRN PO GASTROINTESTINAL UPSET; Start 10/09/18 at 14:00 Alprazolam (Xanax) 0.5 mg Q6 PRN GTB ANXIETY Last administered on 10/13/18at 09:06; Admin Dose 0.5 MG; Start 10/09/18 at 14:00 Eye Lubricant (Artificial Tears Oph) 1 drop Q6H PRN BOTH EYES DRY EYES; Start 10/09/18 at 14:00 Bisacodyl (Dulcolax Supp) 10 mg DAILY PRN [place] CONSTIPATION; Start 10/09/18 at 14:00 Clonidine (Catapres) 0.1 mg DAILY PRN GTB ELEVATED BLOOD PRESSURE; Start 10/09/18 at 14:00 Diltiazem HCl (Cardizem Iv) 5 mg Q4 PRN IV ELEVATED HEART RATE; Start 10/09/18 at 14:00 Diphenhydramine HCl (Benadryl Liquid Cup) 25 mg Q6 PRN GTB ITCHING; Start 10/09/18 at 14:00 Duloxetine HCl (Cymbalta) 30 mg DAILY PO Last administered on 10/13/18at 08:52; Admin Dose 30 MG; Start 10/10/18 at 09:00 Epoetin Arpan (Epogen (Esrd)) 10,000 units TuSa@1300 SC Last administered on 10/11/18at 13:54; Admin Dose 10,000 UNITS; Start 10/11/18 at 13:00 Fentanyl (Duragesic 25 Mcg/Hr Patch) 1 patch Q72H TRANSDERM Last administered on 10/11/18at 15:08; Admin Dose 1 PATCH; Start 10/11/18 at 15:00 Gabapentin (Neurontin Liquid) 400 mg Q8 GTB Last administered on 10/13/18at 05:01; Admin Dose 400 MG; Start 10/09/18 at 15:30 Hydralazine HCl (Apresoline) 10 mg Q4H PRN IV ELEVATED BLOOD PRESSURE; Start 10/09/18 at 14:00 Hydrocortisone (Cortef) 10 mg DAILY PO Last administered on 10/13/18 08:53; Admin Dose 10 MG; Start 10/10/18 at 09:00 Hydrocortisone (Cortef) 5 mg 1500 PO Last administered on 10/12/18 16:00; Admin Dose 5 MG; Start 10/09/18 at 15:00 Hydrocortisone (Cortef) 2.5 mg QHS PO Last administered on 10/12/18 20:01; Admin Dose 2.5 MG; Start 10/09/18 at 21:00 Hydromorphone HCl (Dilaudid) 4 mg Q4H PRN PO MODERATE PAIN LEVEL 4-6 Last administered on 10/12/18 14:29; Admin Dose 4 MG; Start 10/09/18 at 14:00 Hydromorphone HCl (Dilaudid) 8 mg Q4H PRN PO SEVERE PAIN LEVEL 7-10 Last a dministered on 10/13/18 09:07; Admin Dose 8 MG; Start 10/09/18 at 14:00 Hydroxychloroquine Sulfate (Plaquenil) 200 mg BID PO Last administered on 10/13/18 08:53; Admin Dose 200 MG; Start 10/09/18 at 21:00 Diagnostic Test (Pha) (Accu-Chek) 1 ea 02 XX Last administered on 10/12/18 01:40; Admin Dose 1 EA; Start 10/10/18 at 02:00 Insulin Aspart (Novolog Insulin Pen) NOVOLOG *CUSTOM* ALGORITHM Q6H SC Last administered on 10/12/18 01:38; Admin Dose 1 UNIT; Start 10/09/18 at 14:00 Lactobacillus Acidophilus (Florajen3 Capsule) 1 each BID GTB Last administered on 10/13/18 09:05; Admin Dose 1 EACH; Start 10/09/18 at 21:00 Lansoprazole (Prevacid) 30 mg BID@06,18 GTB Last administered on 10/13/18 05:01; Admin Dose 30 MG; Start 10/09/18 at 18:00 Levetiracetam (Keppra Liquid) 500 mg BID GTB Last administered on 10/13/18 08:52; Admin Dose 500 MG; Start 10/09/18 at 21:00 Magnesium Oxide (Mag-Ox 400) 400 mg BID GTB Last administered on 10/13/18 08:53; Admin Dose 400 MG; Start 10/09/18 at 21:00 Metoclopramide HCl (Reglan) 10 mg TID IV Last administered on 10/13/18 08:54; Admin Dose 10 MG; Start 10/09/18 at 21:00 Miconazole Nitrate (Miconazole 2% Cr) 1 applic BID TOP Last administered on 10/13/18 08:55; Admin Dose 1 APPLIC; Start 10/09/18 at 21:00 Miconazole Nitrate (Miconazole 2% Cr) 1 applic Q12 PRN TOP rash; Start 10/09/18 at 14:00 Ondansetron HCl (Zofran Inj) 4 mg Q4H PRN IV NAUSEA AND/OR VOMITING Last administered on 10/13/18 09:09; Admin Dose 4 MG; Start 10/09/18 at 14:00 Polyethylene Glycol (Miralax) 17 gm DAILY PRN GTB CONSTIPATION; Start 10/09/18 at 14:00 Senna (Senokot) 2 tab Q8 PRN PO CONSTIPATION; Start 10/09/18 at 14:00 Trimethoprim/ Sulfamethoxazole (Bactrim Susp) 40 ml DAILY GTB Last administered on 10/13/18 08:54; Admin Dose 40 ML; Start 10/10/18 at 09:00 Zolpidem Tartrate (Ambien) 5 mg HS PRN PO INSOMNIA Last administered on 10/12/18 21:28; Admin Dose 5 MG; Start 10/09/18 at 14:00 Miscellaneous Information 1 ea NOTE XX ; Start 10/09/18 at 15:00 Glucose (Glutose) 15 gm Q15M PRN PO DECREASED GLUCOSE; Start 10/09/18 at 15:00 Glucose (Glutose) 22.5 gm Q15M PRN PO DECREASED GLUCOSE; Start 10/09/18 at 15:00 Dextrose (D50w Syringe) 25 ml Q15M PRN IV DECREASED GLUCOSE; Start 10/09/18 at 15:00 Dextrose (D50w Syringe) 50 ml Q15M PRN IV DECREASED GLUCOSE; Start 10/09/18 at 15:00 Glucagon (Glucagen) 1 mg Q15M PRN IM DECREASED GLUCOSE; Start 10/09/18 at 15:00 Glucose (Glutose) 15 gm Q15M PRN BUCCAL DECREASED GLUCOSE; Start 10/09/18 at 15 :00 Sodium Chloride 500 ml @ 500 mls/hr Q1H PRN IV BLOOD PRESSURE SUPPORT Last administered on 10/10/18 07:59; Admin Dose 500 MLS/HR; Start 10/09/18 at 19:30 Piperacillin Sod/ Tazobactam Sod 100 ml @ 200 mls/hr Q6 IVPB Last administered on 10/13/18 11:26; Admin Dose 200 MLS/HR; Start 10/09/18 at 20:00 Albuterol (Ventolin Hfa) 4 puff Q6H RESP THERAPY INH Last administered on 10/13/18 07:58; Admin Dose 4 PUFF; Start 10/10/18 at 02:00 Ipratropium [place] (Atrovent Hfa) 4 puff Q6H RESP THERAPY INH Last administered on 10/13/18 07:57; Admin Dose 4 PUFF; Start 10/10/18 at 02:00 Atenolol (Tenormin) 12.5 mg BID PO Last administered on 10/13/18 08:53; Admin Dose 12.5 MG; Start 10/10/18 at 21:00 Lorazepam (Ativan) 1 mg Q4 PRN IV AGITATION/ANXIETY Last administered on 10/13/18 11:26; Admin Dose 1 MG; Start 10/13/18 at 10:00 BRISA HAQUE Oct 13, 2018 12:53
--- NOTE | 2018-10-13 13:20 | CONS ---
Assessment/Plan Assessment/Plan Problems: (1) Diabetes mellitus type 2 in nonobese Status: Chronic Comment: Stable glycemic control. Continue current therapeutics (2) Adrenal insufficiency due to steroid withdrawal Status: Chronic Comment: His blood pressure is been a little bit low and given the severity of his illness him to give him some above replacement level dosing temporarily. (3) Hypercalcemia Status: Acute Comment: Recheck calcium is tomorrow. Consultation Date/Type/Reason Admit Date/Time Oct 09, 2018 at 12:16 Initial Consult Date 10/12/18 Type of Consult Endocrinology Reason for Consultation Hypercalcemia; adrenal insufficiency; diabetes mellitus type 2 Requesting Provider: NOLA VIDAL MD Date/Time of Note DATE: 10/13/18 TIME: 13:19 24 HR Interval Summary Constitutional: no complaints Exam/Review of Systems Exam Vitals Vital Signs Date Temp Pulse Resp B/P (MAP) Pulse Ox O2 O2 Flow FiO2 Time Delivery Rate 10/13/18 94 12:00 10/13/18 80 11:30 10/13/18 32 100 11:18 10/13/18 90/66 (74) Mechanical 10:00 Ventilator 10/13/18 98.3 08:00 Intake and Output 10/12/18 10/12/18 10/13/18 1414:59 22:59 06:59 IntakeIntake Total 890 ml 800 ml 950 ml OutputOutput Total 680 ml 340 ml 470 ml BalanceBalance 210 ml 460 ml 480 ml Exam No changes Results Result Diagram: 10/13/18 0450 10/13/18 0451 Results 24hrs Laboratory Tests Test 10/12/18 14:39 10/12/18 16:36 10/12/18 19:58 10/13/18 03:08 Bedside Glucose 119 95 101 Blood Gas Blood arterial Specimen Source Arterial Blood 10/12/2018 5:20:4 Date Drawn 7 PM Arterial Blood pH 7.383 (Temp corrected) Arterial Blood 57.3 H pCO2 (Temp correct) Arterial Blood 74.8 L pO2 (Temp corrected) Arterial Blood 33.4 H HCO3 Arterial Blood 7.2 H Base Excess Arterial Blood 93.2 L Oxygen Saturation [place] Test ACCEPTAB Arterial Blood Left Radial Gas Puncture Site Arterial 0.3 Blood Carboxyhemo globin Arterial Blood 0.5 Methemoglobin Blood Gas A-a O2 290.0 H Differential Oxyhemoglobin 92.5 L Percent Blood Gas 37.0 Temperature Blood Gas 20.0 Respiration Rate Blood Gas Actual 20 Respiration Rate Blood Gas VENT - PC Modality FiO2 60.0 Blood Gas Low 5.0 PEEP Setting Blood Gas 28.0 Inspiratory Pressure Blood Gas RoderickSUSIE RT Notified Whom Blood Gas 10/12/2018 5:34:5 Notified Time 6 PM Test 10/13/18 04:50 10/13/18 04:51 10/13/18 08:48 White Blood Count 16.7 H Red Blood Count 3.20 L Hemoglobin 9.0 L Hematocrit 30.4 L Mean Corpuscular 95.0 Volume Mean Corpuscular 28.1 L Hemoglobin Mean Corpuscular 29.6 L Hemoglobin Concen t Red Cell 15.8 H Distribution Width Platelet Count 381 Mean Platelet 10.8 H Volume Immature 0.200 Granulocytes % Neutrophils % 74.1 Lymphocytes % 11.4 L Monocytes % 10.8 Eosinophils % 2.2 Basophils % 1.3 Nucleated Red 0.0 Blood Cells % Immature 0.030 Granulocytes # Neutrophils # 12.4 H Lymphocytes # 1.9 Monocytes # 1.8 H Eosinophils # 0.4 Basophils # 0.2 H Nucleated Red 0.0 Blood Cells # Sodium Level 139 Potassium Level 3.8 Chloride Level 103 Carbon Dioxide 32 H Level Anion Gap 4 L Blood Urea 18 # Nitrogen Creatinine 0.63 Est Glomerular > 60 Filtrat Rate mL/min Glucose Level 87 Calcium Level 8.7 Phosphorus Level 3.6 Magnesium Level 1.9 Bedside Glucose 110 Medications Medication Current Medications Acetaminophen (Tylenol Liquid) 650 mg Q4H PRN GTB MILD PAIN(1-3)OR ELEVATED TEMP Last administered on 10/10/18at 03:10; Admin Dose 650 MG; Start 10/09/18 at 14:00 Al Hydrox/Mg Hydrox/Simethicone (Mag-Al Plus) 15 ml Q6H PRN PO GASTROINTESTINAL UPSET; Start 10/09/18 at 14:00 Alprazolam (Xanax) 0.5 mg Q6 PRN GTB ANXIETY Last administered on 10/13/18at 09:06; Admin Dose 0.5 MG; Start 10/09/18 at 14:00 Eye Lubricant (Artificial Tears Oph) 1 drop Q6H PRN BOTH EYES DRY EYES; Start 10/09/18 at 14:00 Bisacodyl (Dulcolax Supp) 10 mg DAILY PRN [place] CONSTIPATION; Start 10/09/18 at 14:00 Clonidine (Catapres) 0.1 mg DAILY PRN GTB ELEVATED BLOOD PRESSURE; Start 10/09/18 at 14:00 Diltiazem HCl (Cardizem Iv) 5 mg Q4 PRN IV ELEVATED HEART RATE; Start 10/09/18 at 14:00 Diphenhydramine HCl (Benadryl Liquid Cup) 25 mg Q6 PRN GTB ITCHING; Start 10/09/18 at 14:00 Duloxetine HCl (Cymbalta) 30 mg DAILY PO Last administered on 10/13/18 08:52; Admin Dose 30 MG; Start 10/10/18 at 09:00 Epoetin Arpan (Epogen (Esrd)) 10,000 units TuSa@1300 SC Last administered on 10/11/18 13:54; Admin Dose 10,000 UNITS; Start 10/11/18 at 13:00 Fentanyl (Duragesic 25 Mcg/Hr Patch) 1 patch Q72H TRANSDERM Last administered on 10/11/18 15:08; Admin Dose 1 PATCH; Start 10/11/18 at 15:00 Gabapentin (Neurontin Liquid) 400 mg Q8 GTB Last administered on 10/13/18 05:01; Admin Dose 400 MG; Start 10/09/18 at 15:30 Hydralazine HCl (Apresoline) 10 mg Q4H PRN IV ELEVATED BLOOD PRESSURE; Start 10/09/18 at 14:00 Hydrocortisone (Cortef) 10 mg DAILY PO Last administered on 10/13/18 08:53; Admin Dose 10 MG; Start 10/10/18 at 09:00 Hydrocortisone (Cortef) 5 mg 1500 PO Last administered on 10/12/18 16:00; Admin Dose 5 MG; Start 10/09/18 at 15:00 Hydrocortisone (Cortef) 2.5 mg QHS PO Last administered on 10/12/18 20:01; Admin Dose 2.5 MG; Start 10/09/18 at 21:00 Hydromorphone HCl (Dilaudid) 4 mg Q4H PRN PO MODERATE PAIN LEVEL 4-6 Last administered on 10/12/18 14:29; Admin Dose 4 MG; Start 10/09/18 at 14:00 Hydromorphone HCl (Dilaudid) 8 mg Q4H PRN PO SEVERE PAIN LEVEL 7-10 Last administered on 10/13/18 09:07; Admin Dose 8 MG; Start 10/09/18 at 14:00 Hydroxychloroquine Sulfate (Plaquenil) 200 mg BID PO Last administered on 10/13/18 08:53; Admin Dose 200 MG; Start 10/09/18 at 21:00 Diagnostic Test (Pha) (Accu-Chek) 1 ea 02 XX Last administered on 10/12/18 01:40; Admin Dose 1 EA; Start 10/10/18 at 02:00 Insulin Aspart (Novolog Insulin Pen) NOVOLOG *CUSTOM* ALGORITHM Q6H SC Last administered on 10/12/18 01:38; Admin Dose 1 UNIT; Start 10/09/18 at 14:00 Lactobacillus Acidophilus (Florajen3 Capsule) 1 each BID GTB Last administered on 10/13/18 09:05; Admin Dose 1 EACH; Start 10/09/18 at 21:00 Lansoprazole (Prevacid) 30 mg BID@,18 GTB Last administered on 10/13/18 05:01; Admin Dose 30 MG; Start 10/09/18 at 18:00 Levetiracetam (Keppra Liquid) 500 mg BID GTB Last administered on 10/13/18 08:52; Admin Dose 500 MG; Start 10/09/18 at 21:00 Magnesium Oxide (Mag-Ox 400) 400 mg BID GTB Last administered on 10/13/18 08:53; Admin Dose 400 MG; Start 10/09/18 at 21:00 Metoclopramide HCl (Reglan) 10 mg TID IV Last administered on 10/13/18 08:54; Admin Dose 10 MG; Start 10/09/18 at 21:00 Miconazole Nitrate (Miconazole 2% Cr) 1 applic BID TOP Last administered on 10/13/18 08:55; Admin Dose 1 APPLIC; Start 10/09/18 at 21:00 Miconazole Nitrate (Miconazole 2% Cr) 1 applic Q12 PRN TOP rash; Start 10/09/18 at 14:00 Ondansetron HCl (Zofran Inj) 4 mg Q4H PRN IV NAUSEA AND/OR VOMITING Last administered on 10/13/18 09:09; Admin Dose 4 MG; Start 10/09/18 at 14:00 Polyethylene Glycol (Miralax) 17 gm DAILY PRN GTB CONSTIPATION; Start 10/09/18 at 14:00 Senna (Senokot) 2 tab Q8 PRN PO CONSTIPATION; Start 10/09/18 at 14:00 Trimethoprim/ Sulfamethoxazole (Bactrim Susp) 40 ml DAILY GTB Last administered on 10/13/18at 08:54; Admin Dose 40 ML; Start 10/10/18 at 09:00 Zolpidem Tartrate (Ambien) 5 mg HS PRN PO INSOMNIA Last administered on 10/12/18at 21:28; Admin Dose 5 MG; Start 10/09/18 at 14:00 Miscellaneous Information 1 ea NOTE XX ; Start 10/09/18 at 15:00 Glucose (Glutose) 15 gm Q15M PRN PO DECREASED GLUCOSE; Start 10/09/18 at 15:00 Glucose (Glutose) 22.5 gm Q15M PRN PO DECREASED GLUCOSE; Start 10/09/18 at 15:00 Dextrose (D50w Syringe) 25 ml Q15M PRN IV DECREASED GLUCOSE; Start 10/09/18 at 15:00 Dextrose (D50w Syringe) 50 ml Q15M PRN IV DECREASED GLUCOSE; Start 10/09/18 at 15:00 Glucagon (Glucagen) 1 mg Q15M PRN IM DECREASED GLUCOSE; Start 10/09/18 at 15:00 Glucose (Glutose) 15 gm Q15M PRN BUCCAL DECREASED GLUCOSE; Start 10/09/18 at 15:00 Sodium Chloride 500 ml @ 500 mls/hr Q1H PRN IV BLOOD PRESSURE SUPPORT Last administered on 10/10/18at 07:59; Admin Dose 500 MLS/HR; Start 10/09/18 at 19:30 Piperacillin Sod/ Tazobactam Sod 100 ml @ 200 mls/hr Q6 IVPB Last administered on 10/13/18at 11:26; Admin Dose 200 MLS/HR; Start 10/09/18 at 20:00 Albuterol (Ventolin Hfa) 4 puff Q6H RESP THERAPY INH Last administered on 10/13/18at 07:58; Admin Dose 4 PUFF; Start 10/10/18 at 02:00 Ipratropium [place] (Atrovent Hfa) 4 puff Q6H RESP THERAPY INH Last administered on 10/13/18 07:57; Admin Dose 4 PUFF; Start 10/10/18 at 02:00 Atenolol (Tenormin) 12.5 mg BID PO Last administered on 10/13/18 08:53; Admin Dose 12.5 MG; Start 10/10/18 at 21:00 Lorazepam (Ativan) 1 mg Q4 PRN IV AGITATION/ANXIETY Last administered on 10/13/18 11:26; Admin Dose 1 MG; Start 10/13/18 at 10:00 KEV ISSA MD Oct 13, 2018 13:20
[2018-10-13] MEDS: predniSONE 5 MG TAB PO SCH (15:48)
--- NOTE | 2018-10-13 19:03 | CONS ---
Assessment/Plan Assessment/Plan Assessment/Plan (Daily) Assessment/Plan (Daily) Interval hx: On 60% FiO2. Unable to tolerate at 50% overnight. WBC are im proving. Tolerating tube feeds. C diff negative. Rectal tube with brown liquid stool. 1. Respiratory failure secondary to pneumonia versus interstitial pneumonitis from rheumatoid arthritis versus mild aspiration. The patient was getting ice chips. There was no evidence of aspiration of formula. 2. Severe rheumatoid arthritis. 3. Quadriplegia. 4. Adrenal insufficiency. 5. Gastroparesis. 6. Hypothyroidism. 7. Chronic pain syndrome. 8. Hypertension. 9. Diarrhea PLAN: Stool cultures FOB Swallow eval Patient's tube feeding increased to 50 cc/h and is tolerating it Continue Reglan. Aspiration precautions Consultation Date/Type/Reason Admit Date/Time Oct 09, 2018 at 12:16 Initial Consult Date 10/12/18 Requesting Provider: NOLA VIDAL MD Date/Time of Note DATE: 10/13/18 TIME: 19:02 24 HR Interval Summary Constitutional: no complaints, improved Exam/Review of Systems Exam Vitals Vital Signs Date Temp Pulse Resp B/P (MAP) Pulse Ox O2 O2 Flow FiO2 Time Delivery Rate 10/13/18 110 22 106/83 94 Mechanical 18:00 (91) Ventilator 10/13/18 70 17:30 10/13/18 99.1 16:00 Intake and Output 10/12/18 10/12/18 10/13/18 1515:00 23:00 07:00 IntakeIntake Total 815 ml 810 ml 960 ml OutputOutput Total 610 ml 360 ml 495 ml BalanceBalance 205 ml 450 ml 465 ml Constitutional: alert, oriented Head: normocephalic Eyes: nl conjunctiva ENMT: nl external ears & nose Respiratory: diminished breath sounds Cardiovascular: regular rate and rhythm, nl pulses Gastrointestinal: nl liver, spleen Musculoskeletal: nl extremities to inspection Results Result Diagram: 10/13/18 0450 10/13/18 0451 Results 24hrs Laboratory Tests Test 10/12/18 19:58 10/13/18 03:08 10/13/18 04:50 10/13/18 04:51 Bedside Glucose 95 101 White Blood Count 16.7 H Red Blood Count 3.20 L Hemoglobin 9.0 L Hematocrit 30.4 L Mean Corpuscular 95.0 Volume Mean Corpuscular 28.1 L Hemoglobin Mean Corpuscular 29.6 L Hemoglobin Concent Red Cell 15.8 H Distribution Width Platelet Count 381 Mean Platelet Volume 10.8 H Immature 0.200 Granulocytes % Neutrophils % 74.1 Lymphocytes % 11.4 L Monocytes % 10.8 Eosinophils % 2.2 Basophils % 1.3 Nucleated Red Blood 0.0 Cells % Immature 0.030 Granulocytes # Neutrophils # 12.4 H Lymphocytes # 1.9 Monocytes # 1.8 H Eosinophils # 0.4 Basophils # 0.2 H Nucleated Red Blood 0.0 Cells # Sodium Level 139 Potassium Level 3.8 Chloride Level 103 Carbon Dioxide Level 32 H Anion Gap 4 L Blood Urea Nitrogen 18 # Creatinine 0.63 Est Glomerular > 60 Filtrat Rate mL/min Glucose Level 87 Calcium Level 8.7 Phosphorus Level 3.6 Magnesium Level 1.9 Test 10/13/18 08:48 10/13/18 13:44 Bedside Glucose 110 106 Medications Medication Current Medications Acetaminophen (Tylenol Liquid) 650 mg Q4H PRN GTB MILD PAIN(1-3)OR ELEVATED TEMP Last administered on 10/10/18at 03:10; Admin Dose 650 MG; Start 10/09/18 at 14:00 Al Hydrox/Mg Hydrox/Simethicone (Mag-Al Plus) 15 ml Q6H PRN PO GASTROINTESTINAL UPSET; Start 10/09/18 at 14:00 Alprazolam (Xanax) 0.5 mg Q6 PRN GTB ANXIETY Last administered on 10/13/18at 09:06; Admin Dose 0.5 MG; Start 10/09/18 at 14:00 Eye Lubricant (Artificial Tears Oph) 1 drop Q6H PRN BOTH EYES DRY EYES; Start 10/09/18 at 14:00 Bisacodyl (Dulcolax Supp) 10 mg DAILY PRN [place] CONSTIPATION; Start 10/09/18 at 14:00 Clonidine (Catapres) 0.1 mg DAILY PRN GTB ELEVATED BLOOD PRESSURE; Start 10/09/18 at 14:00 Diltiazem HCl (Cardizem Iv) 5 mg Q4 PRN IV ELEVATED HEART RATE; Start 10/09/18 at 14:00 Diphenhydramine HCl (Benadryl Liquid Cup) 25 mg Q6 PRN GTB ITCHING; Start 10/09/18 at 14:00 Duloxetine HCl (Cymbalta) 30 mg DAILY PO Last administered on 10/13/18 08:52; Admin Dose 30 MG; Start 10/10/18 at 09:00 Epoetin Arpan (Epogen (Esrd)) 10,000 units TuSa@1300 SC Last administered on 10/11/18 13:54; Admin Dose 10,000 UNITS; Start 10/11/18 at 13:00 Fentanyl (Duragesic 25 Mcg/Hr Patch) 1 patch Q72H TRANSDERM Last administered on 10/11/18 15:08; Admin Dose 1 PATCH; Start 10/11/18 at 15:00 Gabapentin (Neurontin Liquid) 400 mg Q8 GTB Last administered on 10/13/18 13:4 3; Admin Dose 400 MG; Start 10/09/18 at 15:30 Hydralazine HCl (Apresoline) 10 mg Q4H PRN IV ELEVATED BLOOD PRESSURE; Start 10/09/18 at 14:00 Hydrocortisone (Cortef) 10 mg DAILY PO Last administered on 10/13/18 08:53; Admin Dose 10 MG; Start 10/10/18 at 09:00 Hydrocortisone (Cortef) 5 mg 1500 PO Last administered on 10/13/18 15:46; Admin Dose 5 MG; Start 10/09/18 at 15:00 Hydrocortisone (Cortef) 2.5 mg QHS PO Last administered on 10/12/18 20:01; Admin Dose 2.5 MG; Start 10/09/18 at 21:00 Hydromorphone HCl (Dilaudid) 4 mg Q4H PRN PO MODERATE PAIN LEVEL 4-6 Last administered on 10/12/18 14:29; Admin Dose 4 MG; Start 10/09/18 at 14:00 Hydromorphone HCl (Dilaudid) 8 mg Q4H PRN PO SEVERE PAIN LEVEL 7-10 Last administered on 10/13/18 13:48; Admin Dose 8 MG; Start 10/09/18 at 14:00 Hydroxychloroquine Sulfate (Plaquenil) 200 mg BID PO Last administered on 10/13/18 08:53; Admin Dose 200 MG; Start 10/09/18 at 21:00 Diagnostic Test (Pha) (Accu-Chek) 1 ea 02 XX Last administered on 10/12/18 01:40; Admin Dose 1 EA; Start 10/10/18 at 02:00 Insulin Aspart (Novolog Insulin Pen) NOVOLOG *CUSTOM* ALGORITHM Q6H SC Last administered on 10/12/18 01:38; Admin Dose 1 UNIT; Start 10/09/18 at 14:00 Lactobacillus Acidophilus (Florajen3 Capsule) 1 each BID GTB Last administered on 10/13/18 09:05; Admin Dose 1 EACH; Start 10/09/18 at 21:00 Lansoprazole (Prevacid) 30 mg BID@06,18 GTB Last administered on 10/13/18 17:26; Admin Dose 30 MG; Start 10/09/18 at 18:00 Levetiracetam (Keppra Liquid) 500 mg BID GTB Last administered on 10/13/18 08:52; Admin Dose 500 MG; Start 10/09/18 at 21:00 Magnesium Oxide (Mag-Ox 400) 400 mg BID GTB Last administered on 10/13/18 08:53; Admin Dose 400 MG; Start 10/09/18 at 21:00 Metoclopramide HCl (Reglan) 10 mg TID IV Last administered on 10/13/18 13:43; Admin Dose 10 MG; Start 10/09/18 at 21:00 Miconazole Nitrate (Miconazole 2% Cr) 1 applic BID TOP Last administered on 10/13/18 08:55; Admin Dose 1 APPLIC; Start 10/09/18 at 21:00 Miconazole Nitrate (Miconazole 2% Cr) 1 applic Q12 PRN TOP rash; Start 10/09/18 at 14:00 Ondansetron HCl (Zofran Inj) 4 mg Q4H PRN IV NAUSEA AND/OR VOMITING Last administered on 10/13/18 09:09; Admin Dose 4 MG; Start 10/09/18 at 14:00 Polyethylene Glycol (Miralax) 17 gm DAILY PRN GTB CONSTIPATION; Start 10/09/18 at 14:00 Senna (Senokot) 2 tab Q8 PRN PO CONSTIPATION; Start 10/09/18 at 14:00 Trimethoprim/ Sulfamethoxazole (Bactrim Susp) 40 ml DAILY GTB Last administered on 10/13/18 08:54; Admin Dose 40 ML; Start 10/10/18 at 09:00 Zolpidem Tartrate (Ambien) 5 mg HS PRN PO INSOMNIA Last administered on 10/12/18 21:28; Admin Dose 5 MG; Start 10/09/18 at 14:00 Miscellaneous Information 1 ea NOTE XX ; Start 10/09/18 at 15:00 Glucose (Glutose) 15 gm Q15M PRN PO DECREASED GLUCOSE; Start 10/09/18 at 15:00 Glucose (Glutose) 22.5 gm Q15M PRN PO DECREASED GLUCOSE; Start 10/09/18 at 15:00 Dextrose (D50w Syringe) 25 ml Q15M PRN IV DECREASED GLUCOSE; Start 10/09/18 at 15:00 Dextrose (D50w Syringe) 50 ml Q15M PRN IV DECREASED GLUCOSE; Start 10/09/18 at 15:00 Glucagon (Glucagen) 1 mg Q15M PRN IM DECREASED GLUCOSE; Start 10/09/18 at 15:00 Glucose (Glutose) 15 gm Q15M PRN BUCCAL DECREASED GLUCOSE; Start 10/09/18 at 15:00 Sodium Chloride 500 ml @ 500 mls/hr Q1H PRN IV BLOOD PRESSURE SUPPORT Last administered on 10/10/18at 07:59; Admin Dose 500 MLS/HR; Start 10/09/18 at 19:30 Piperacillin Sod/ Tazobactam Sod 100 ml @ 200 mls/hr Q6 IVPB Last administered on 10/13/18at 17:26; Admin Dose 200 MLS/HR; Start 10/09/18 at 20:00 Albuterol (Ventolin Hfa) 4 puff Q6H RESP THERAPY INH Last administered on 10/13/18at 14:33; Admin Dose 4 PUFF; Start 10/10/18 at 02:00 Ipratropium [place] (Atrovent Hfa) 4 puff Q6H RESP THERAPY INH Last administered on 10/13/18 14:33; Admin Dose 4 PUFF; Start 10/10/18 at 02:00 Atenolol (Tenormin) 12.5 mg BID PO Last administered on 10/13/18 08:53; Admin Dose 12.5 MG; Start 10/10/18 at 21:00 Lorazepam (Ativan) 1 mg Q4 PRN IV AGITATION/ANXIETY Last administered on 10/13/18at 11:26; Admin Dose 1 MG; Start 10/13/18 at 10:00 Prednisone (Prednisone) 5 mg DAILY PO Last administered on 10/13/18at 15:48; Admin Dose 5 MG; Start 10/13/18 at 15:00; Stop 10/15/18 at 14:59 BHAVIK RUIBO MD Oct 13, 2018 19:03
--- NOTE | 2018-10-13 22:30 | CONS ---
Assessment/Plan Assessment/Plan Hospital Course (Demo Recall) # sepsis, respiratory - recurrent sepsis on 10/08/2018 due to aspiration pneumonia, HCAP - possible aspiration pneumonia, recurrent pneumonia due to citrobacter - acute on chronic hypoxic and hypercarbic respiratory failure - persistent leukocytosis likely due to pneumonia, partly due to steroid margination - h/o tracheostomy on 08/26/2018 - h/o "Increased mild left apical pneumothorax" per CXR on 09/19/2018; no pneumothorax mentioned on subsequent CXR - h/o pneumomediastinum - h/o VAT on 08/11/2018 - h/o asthma/COPD exacerbation - h/o acute tracheobronchitis - h/o MAC infection but CT chest did not demonstrate features suggestive of this per chart review - h/o HCAP due to citrobacter, based on resp culture on 09/13/2018 - h/o aspergillus growing out of resp culture per (pulm note by Dr. Lopez) on 07/25/2018 - h/o elevated 1,3 Thor-H-ngyjuf level = 232 on 08/06/2018 - h/o MSSA septicemia # GI - diarrhea, C diff on 10/09/2018 was negative - h/o HSV esophagitis, took acyclovir x21 days from 08/26/2018 - h/o EGD, esophageal biopsy showed esophageal squamous mucosa showing acute inflammation, granulation tissue, and ulceration consistent with ulcerative esophagitis, rare multinucleated cells with morphology suggestive of vial cytopathic changes, No cardiac mucosa, intestinal metaplasia, dysplasia, or malignancy defined - GERD - PUD # renal/ - Hypokalemia, recurrent - CKD 2 - BPH # cardiac - tachycardia, persistent - ACD - HTN - HLD # endo - T2DM - Hgb A1c 7.2% - secondary adrenal insufficiency; steroid dependent - Hypoparathyroidism - Hypercalcemia - Pamidronate was ordered # neuro - toxic metabolic encephalopathy - Cervical myopathy - Severe cervical spinal cord stenosis with cord compression from C3-C5, s/p laminectomy in ~03/2018 - Chronic pain syndrome - Functional quadriplegia - Seizure d/o # other chronic conditions - RA with chronic steroid dependence - Immunocompromised status - Fibromyalgia rheumatica - DDD - H/o multiple rib fracture - Pt completed: meropenem (09/25/2018-10/02/2018), vancomycin (09/25/18-09/28/18) recommendations - continue pip/tazo (10/09/2018-), plan for 5-7 days - continue Bactrim for pneumocystis PPX - management d/w Pt's RN Mateo the critical care time I took to care for this Pt today was from 2129 to 2199 Consultation Date/Type/Reason Admit Date/Time Oct 09, 2018 at 12:16 Initial Consult Date 10/09/18 Type of Consult ID Requesting Provider: NOLA VIDAL MD Date/Time of Note DATE: 10/13/18 TIME: 22:26 24 HR Interval Summary Subjective hx not possible: other (nearly non-verbal) Constitutional: No febrile Detailed Summary ENT: No congestion Respiratory: shortness of breath; No sputum Cardiovascular: no complaints Gastrointestinal: diarrhea (+rectal tube) Genitourinary: other (FC) Musculoskeletal: swelling (hands) Skin: no complaints Neurologic: No headache Exam/Review of Systems Exam Vitals Vital Signs Date Temp Pulse Resp B/P (MAP) Pulse Ox O2 O2 Flow FiO2 Time Delivery Rate 10/13/18 99.9 117 28 125/85 96 Mechanical 20:00 (98) Ventilator Trach Collar 10/13/18 70 19:45 Intake and Output 10/12/18 10/12/18 10/13/18 1515:00 23:00 07:00 IntakeIntake Total 815 ml 810 ml 960 ml OutputOutput Total 610 ml 360 ml 495 ml BalanceBalance 205 ml 450 ml 465 ml Constitutional: non-verbal, frail Psych: nl mood/affect Head: normocephalic, atraumatic Eyes: nl conjunctiva, nl lids, nl sclera ENMT: nl external ears & nose, nl nasal mucosa & septum, other (dry mucus membranes) Neck: non-tender, other (not swollen) Respiratory: crackles/rales, diminished breath sounds Cardiovascular: other (tachycardic and regular) Gastrointestinal: soft, non-tender; No distended Musculoskeletal: other (hands are swollen) Extremities: edema (b/l hand and fingers) Neurological: lethargic Skin: ecchymosis Results Result Diagram: 10/13/18 0450 10/13/18 0451 Results 24hrs Laboratory Tests Test 10/13/18 03:08 10/13/18 04:50 10/13/18 04:51 10/13/18 08:48 Bedside Glucose 101 110 White Blood Count 16.7 H Red Blood Count 3.20 L Hemoglobin 9.0 L Hematocrit 30.4 L Mean Corpuscular 95.0 Volume Mean Corpuscular 28.1 L Hemoglobin Mean Corpuscular 29.6 L Hemoglobin Concent Red Cell 15.8 H Distribution Width Platelet Count 381 Mean Platelet Volume 10.8 H Immature 0.200 Granulocytes % Neutrophils % 74.1 Lymphocytes % 11.4 L Monocytes % 10.8 Eosinophils % 2.2 Basophils % 1.3 Nucleated Red Blood 0.0 Cells % Immature 0.030 Granulocytes # Neutrophils # 12.4 H Lymphocytes # 1.9 Monocytes # 1.8 H Eosinophils # 0.4 Basophils # 0.2 H Nucleated Red Blood 0.0 Cells # Sodium Level 139 Potassium Level 3.8 Chloride Level 103 Carbon Dioxide Level 32 H Anion Gap 4 L Blood Urea Nitrogen 18 # Creatinine 0.63 Est Glomerular > 60 Filtrat Rate mL/min Glucose Level 87 Calcium Level 8.7 Phosphorus Level 3.6 Magnesium Level 1.9 Test 10/13/18 13:44 10/13/18 20:02 Bedside Glucose 106 106 Medications Medication Current Medications Acetaminophen (Tylenol Liquid) 650 mg Q4H PRN GTB MILD PAIN(1-3)OR ELEVATED TEMP Last administered on 10/10/18at 03:10; Admin Dose 650 MG; Start 10/09/18 at 14:00 Al Hydrox/Mg Hydrox/Simethicone (Mag-Al Plus) 15 ml Q6H PRN PO GASTROINTESTINAL UPSET; Start 10/09/18 at 14:00 Alprazolam (Xanax) 0.5 mg Q6 PRN GTB ANXIETY Last administered on 10/13/18at 09:06; Admin Dose 0.5 MG; Start 10/09/18 at 14:00 Eye Lubricant (Artificial Tears Oph) 1 drop Q6H PRN BOTH EYES DRY EYES; Start 10/09/18 at 14:00 Bisacodyl (Dulcolax Supp) 10 mg DAILY PRN [place] CONSTIPATION; Start 10/09/18 at 14:00 Clonidine (Catapres) 0.1 mg DAILY PRN GTB ELEVATED BLOOD PRESSURE; Start 10/09/18 at 14:00 Diltiazem HCl (Cardizem Iv) 5 mg Q4 PRN IV ELEVATED HEART RATE; Start 10/09/18 at 14:00 Diphenhydramine HCl (Benadryl Liquid Cup) 25 mg Q6 PRN GTB ITCHING; Start 10/09/18 at 14:00 Duloxetine HCl (Cymbalta) 30 mg DAILY PO Last administered on 10/13/18 08:52; Admin Dose 30 MG; Start 10/10/18 at 09:00 Epoetin Arpan (Epogen (Esrd)) 10,000 units TuSa@1300 SC Last administered on 10/11/18 13:54; Admin Dose 10,000 UNITS; Start 10/11/18 at 13:00 Fentanyl (Duragesic 25 Mcg/Hr Patch) 1 patch Q72H TRANSDERM Last administered on 10/11/18 15:08; Admin Dose 1 PATCH; Start 10/11/18 at 15:00 Gabapentin (Neurontin Liquid) 400 mg Q8 GTB Last administered on 10/13/18 21:00; Admin Dose 400 MG; Start 10/09/18 at 15:30 Hydralazine HCl (Apresoline) 10 mg Q4H PRN IV ELEVATED BLOOD PRESSURE; Start 10/09/18 at 14:00 Hydrocortisone (Cortef) 10 mg DAILY PO Last administered on 10/13/18 08:53; Admin Dose 10 MG; Start 10/10/18 at 09:00 Hydrocortisone (Cortef) 5 mg 1500 PO Last administered on 10/13/18 15:46; Admin Dose 5 MG; Start 10/09/18 at 15:00 Hydrocortisone (Cortef) 2.5 mg QHS PO Last administered on 10/13/18 20:47; Admin Dose 2.5 MG; Start 10/09/18 at 21:00 Hydromorphone HCl (Dilaudid) 4 mg Q4H PRN PO MODERATE PAIN LEVEL 4-6 Last administered on 10/12/18 14:29; Admin Dose 4 MG; Start 10/09/18 at 14:00 Hydromorphone HCl (Dilaudid) 8 mg Q4H PRN PO SEVERE PAIN LEVEL 7-10 Last administered on 10/13/18 20:02; Admin Dose 8 MG; Start 10/09/18 at 14:00 Hydroxychloroquine Sulfate (Plaquenil) 200 mg BID PO Last administered on 10/13/18 20:45; Admin Dose 200 MG; Start 10/09/18 at 21:00 Diagnostic Test (Pha) (Accu-Chek) 1 ea 02 XX Last administered on 10/12/18 01:40; Admin Dose 1 EA; Start 10/10/18 at 02:00 Insulin Aspart (Novolog Insulin Pen) NOVOLOG *CUSTOM* ALGORITHM Q6H SC Last administered on 10/12/18 01:38; Admin Dose 1 UNIT; Start 10/09/18 at 14:00 Lactobacillus Acidophilus (Florajen3 Capsule) 1 each BID GTB Last administered on 10/13/18 20:47; Admin Dose 1 EACH; Start 10/09/18 at 21:00 Lansoprazole (Prevacid) 30 mg BID@,18 GTB Last administered on 10/13/18 17 :26; Admin Dose 30 MG; Start 10/09/18 at 18:00 Levetiracetam (Keppra Liquid) 500 mg BID GTB Last administered on 10/13/18 20:45; Admin Dose 500 MG; Start 10/09/18 at 21:00 Magnesium Oxide (Mag-Ox 400) 400 mg BID GTB Last administered on 10/13/18 20:48; Admin Dose 400 MG; Start 10/09/18 at 21:00 Metoclopramide HCl (Reglan) 10 mg TID IV Last administered on 10/13/18 20:45; Admin Dose 10 MG; Start 10/09/18 at 21:00 Miconazole Nitrate (Miconazole 2% Cr) 1 applic BID TOP Last administered on 20:48; Admin Dose 1 APPLIC; Start 10/09/18 at 21:00 Miconazole Nitrate (Miconazole 2% Cr) 1 applic Q12 PRN TOP rash; Start 10/09/18 at 14:00 Ondansetron HCl (Zofran Inj) 4 mg Q4H PRN IV NAUSEA AND/OR VOMITING Last administered on 10/13/18 09:09; Admin Dose 4 MG; Start 10/09/18 at 14:00 Polyethylene Glycol (Miralax) 17 gm DAILY PRN GTB CONSTIPATION; Start 10/09/18 at 14:00 Senna (Senokot) 2 tab Q8 PRN PO CONSTIPATION; Start 10/09/18 at 14:00 Trimethoprim/ Sulfamethoxazole (Bactrim Susp) 40 ml DAILY GTB Last administered on 10/13/18 08:54; Admin Dose 40 ML; Start 10/10/18 at 09:00 Zolpidem Tartrate (Ambien) 5 mg HS PRN PO INSOMNIA Last administered on 10/12/18 21:28; Admin Dose 5 MG; Start 10/09/18 at 14:00 Miscellaneous Information 1 ea NOTE XX ; Start 10/09/18 at 15:00 Glucose (Glutose) 15 gm Q15M PRN PO DECREASED GLUCOSE; Start 10/09/18 at 15:00 Glucose (Glutose) 22.5 gm Q15M PRN PO DECREASED GLUCOSE; Start 10/09/18 at 15:00 Dextrose (D50w Syringe) 25 ml Q15M PRN IV DECREASED GLUCOSE; Start 10/09/18 at 15:00 Dextrose (D50w Syringe) 50 ml Q15M PRN IV DECREASED GLUCOSE; Start 10/09/18 at 15:00 Glucagon (Glucagen) 1 mg Q15M PRN IM DECREASED GLUCOSE; Start 10/09/18 at 15:00 Glucose (Glutose) 15 gm Q15M PRN BUCCAL DECREASED GLUCOSE; Start 10/09/18 at 15:00 Sodium Chloride 500 ml @ 500 mls/hr Q1H PRN IV BLOOD PRESSURE SUPPORT Last administered on 10/10/18at 07:59; Admin Dose 500 MLS/HR; Start 10/09/18 at 19:30 Piperacillin Sod/ Tazobactam Sod 100 ml @ 200 mls/hr Q6 IVPB Last administered on 10/13/18at 17:26; Admin Dose 200 MLS/HR; Start 10/09/18 at 20:00 Albuterol (Ventolin Hfa) 4 puff Q6H RESP THERAPY INH Last administered on 10/13/18 21:51; Admin Dose 4 PUFF; Start 10/10/18 at 02:00 Ipratropium [place] (Atrovent Hfa) 4 puff Q6H RESP THERAPY INH Last administered on 10/13/18 21:51; Admin Dose 4 PUFF; Start 10/10/18 at 02:00 Atenolol (Tenormin) 12.5 mg BID PO Last administered on 2/28/19at 21:01; Admin Dose 12.5 MG; Start 10/10/18 at 21:00 Lorazepam (Ativan) 1 mg Q4 PRN IV AGITATION/ANXIETY Last administered on 10/13/18at 11:26; Admin Dose 1 MG; Start 10/13/18 at 10:00 Prednisone (Prednisone) 5 mg DAILY PO Last administered on 10/13/18at 15:48; Admin Dose 5 MG; Start 10/13/18 at 15:00; Stop 10/15/18 at 14:59 NEMO MARTINEZ M.D. Oct 13, 2018 22:30
[2018-10-14] VITALS (36 sets, daily range): BP systolic 85–130; BP diastolic 54–103; PULSE 91–108; RESP 20–32
--- NOTE | 2018-10-14 00:25 | PN ---
DATE: 10/13/2018 SUBJECTIVE: Follow up on acute on chronic hypoxemic respiratory failure, C-spine quadriplegia, dysph agia. The patient's FiO2 had to be increased to 80%. The patient had a chest x-ray done yesterday w [facility] revealed extensive right reticulonodular densities. The patient does have intermittent low-grad e fever. The patient denies any chest pain or abdominal pain. PHYSICAL EXAMINATION: GENERAL: Revealed the patient to be awake, alert. VITAL SIGNS: Temperature 99.9, pulse 117, respirations 28, blood pressure 125/85, O2 saturation 96% on currently FiO2 of 70%. HEENT: No eye discharge or redness. Nose and ears are normal. NECK: Tracheostomy in place. CHEST: Diminished air entry at bases. CARDIOVASCULAR: S1, S2 normal. No murmur. Sinus tachycardia. ABDOMEN: Soft, nondistended. G-tube in place. EXTREMITIES: No leg edema. NEUROLOGIC: The patient is awake, alert, follows simple commands, has quadriplegia. LABORATORY DATA: Done today, WBC 16.7, hemoglobin 9. Sodium 139, potassium 3.8, BUN 18, creatinine 0.6. IMPRESSION: 1. Acute on chronic hypoxemic respiratory failure. The patient remains on IV Zosyn. 2. Respiratory failure. Continue vent support as per Dr. Durbin for weaning off vent, remain s poor. 3. Rheumatoid arthritis, immunocompromised status. Continue Bactrim for Pneumocystis carinii pneumo iam prophylaxis. 4. Dysphagia. Continue tube feeding. We will continue to monitor him in ICU. The patient remains critical. Alvarez evaluation is underway. Plan of care was discussed with nursing staff. Dictated By: NOLA VIDAL MD AB/NTS Conf#: [id number] DID#: [id number] CC: DALTON DURBIN MD;*EndCC*
[2018-10-14] MEDS: ALPRAZOLAM 0.5 MG TAB GTB PRN (01:42)
[2018-10-14] MEDS: HYDROmorphONE 2 MG TAB PO PRN ×5 (01:49→23:19)
[2018-10-14] MEDS: ACCU-CHEK XX SCH (01:54)
[2018-10-14] MEDS: INSULIN ASPART [NOVOLOG] 3 ML PEN SC SCH ×4 (01:54→20:51)
[2018-10-14] MEDS: ALBUTEROL HFA 8 GM INHALER INH SCH ×4 (02:00→21:50)
[2018-10-14] MEDS: IPRATROPIUM (HFA) 12.9 GM INHALER INH SCH ×4 (03:02→21:50)
[2018-10-14] MEDS: GABAPENTIN (50 MG/ML PO SYG) GTB SCH ×3 (05:00→21:04)
[2018-10-14] MEDS: PIPER-TAZO 3.375 GM IV (PMX) 100 ML IVPB SCH ×4 (05:00→23:29)
[2018-10-14] MEDS: ONDANSETRON 4 MG INJ IV PRN ×2 (05:00→23:18)
[2018-10-14] MEDS: LANSOPRAZOLE 30 MG CAP GTB SCH ×2 (05:00→18:29)
[2018-10-14] MEDS: LORAZEPAM 2 MG INJ IV PRN ×2 (05:03→10:37)
--- NOTE | 2018-10-14 08:39 | PN ---
DATE: 10/14/2018 SUBJECTIVE: The patient is in serious but stable condition. The patient is on full ventilatory supp ort. No other acute events noted. OBJECTIVE: VITAL SIGNS: Blood pressure is 124/76, respirations 26, pulse 96, temperature 98.8. HEENT: Head is normocephalic. NECK: Supple. HEART: Regular rate. LUNGS: Show diminished breath sounds at the base. ABDOMEN: Soft, nontender to palpation. No rebound or guarding. EXTREMITIES: Negative for clubbing, cyanosis, no edema. DERMATOLOGIC: No rashes. MUSCULOSKELETAL: No joint effusion. NEUROLOGIC: No change in exam. MEDICATIONS: The patient's medications have been reviewed. LABORATORY DATA: Shows sodium 138, potassium 3.6, BUN 14, creatinine 0.69. White count 7.3, hemoglo bin 7.5, platelet count is 375. ASSESSMENT AND PLAN: 1. Nonoliguric acute kidney injury on top of chronic kidney disease. Etiology of current acute kidn ey injury is secondary to hemodynamics. The patient's renal function has improved. Continue current treatment plan, supportive care, renally dose all medicines. 2. Hypernatremia, improved. Continue free water flushes, monitor sodium levels. 3. Anemia. Iron panel was reviewed, shows mixed picture. Continue to monitor hemoglobin and hemato crit levels. Consider course of IV iron. 6. Mineral bone disorder, monitor calcium and phosphorus levels. 7. Ventilator-dependent respiratory failure. Vent settings and ABG was reviewed. Continue to monit or. 8. Dysphagia status post percutaneous endoscopic gastrostomy. Continue tube feeding. 9. Quadriplegia. Continue to monitor. 10. Sepsis secondary to pneumonia. Continue current antibiotic regimen. 11. Tachyarrhythmia. Continue current medical management. 12. Acute encephalopathy, etiology is toxic metabolic. Mental status is improving. Continue to mon itor. 13. Chronic pain syndrome. Continue current pain regimen. 14. Seizure disorder. Continue current treatment plan. 15. History of adrenal insufficiency. Continue Cortef. 16. History of rheumatoid arthritis. Dictated By: UNA ROY DO NR/NTS Conf#: [id number] DID#: [id number] CC: DALTON DURBIN MD; NOLA VIDAL MD;*EndCC*
[2018-10-14] MEDS: LEVETIRACETAM (100 MG/ML) 5ML CUP GTB SCH ×2 (09:54→20:41)
[2018-10-14] MEDS: ATENOLOL 25 MG TAB PO SCH (09:54)
[2018-10-14] MEDS: DULOXETINE 30 MG CAP DR PO SCH (09:55)
[2018-10-14] MEDS: HYDROCORTISONE 5 MG TAB PO SCH (09:55)
[2018-10-14] MEDS: HYDROXYCHLOROQUINE 200 MG TAB PO SCH ×2 (09:55→20:42)
[2018-10-14] MEDS: predniSONE 5 MG TAB PO SCH (09:56)
[2018-10-14] MEDS: MAGNESIUM OXIDE 400 MG TAB GTB SCH ×2 (09:56→20:42)
[2018-10-14] MEDS: L ACIDOPHIL/B LACTIS/B LONGUM CAPSULE GTB SCH ×2 (09:56→20:41)
[2018-10-14] MEDS: TRIMETHOPRIM/SULFAMETHOX (PO SYG) GTB SCH (09:57)
[2018-10-14] MEDS: METOCLOPRAMIDE 10 MG INJ IV SCH ×3 (10:00→20:42)
[2018-10-14] MEDS: BALSAM PERU/CASTOR OIL 60 GM TUBE TOP SCH ×2 (10:04→20:43)
[2018-10-14] MEDS: MICONAZOLE 2% 30 GM CR TOP SCH ×2 (10:04→20:43)
--- NOTE | 2018-10-14 10:44 | CONS ---
Assessment/Plan Assessment/Plan Hospital Course (Demo Recall) IMPRESSION: 1. Tachycardia at this time in the setting of fevers and respiratory distress, most consistent with sinus tachycardia likely driving this process. 2. Hypertension with borderline hypotension at this time. -still borderline Hotn 3. Abnormal electrocardiogram at baseline. 4. Chronic respiratory failure, status post tracheostomy.-weaning vent support 5. Dysphagia, status post G-tube. 6. Quadriplegia. 7. Renal insufficiency, on steroids. 8. Chronic obstructive pulmonary disease. 9. Rheumatoid arthritis. 10. Chronic kidney disease. 11. Diabetes mellitus. 12.Adrenal insufficiency Recc -ICU -Vent support as necessary -Follow volume status clsoely -Continue abx's and f/u cx data -continue steroids -low dose BB as tolerated only -will f/u echo Consultation Date/Type/Reason Admit Date/Time Oct 09, 2018 at 12:16 Initial Consult Date 10/09/18 Type of Consult Cardiology Reason for Consultation cardiomyopathy Requesting Provider: NOLA VIDAL MD Date/Time of Note DATE: 10/14/18 TIME: 10:41 Exam/Review of Systems Vital Signs Vitals Vital Signs Date Temp Pulse Resp B/P (MAP) Pulse Ox O2 O2 Flow FiO2 Time Delivery Rate 10/14/18 101 30 98 85 09:15 10/14/18 124/76 Mechanical 06:00 (92) Ventilator Trach Collar 10/14/18 98.8 04:00 Intake and Output 10/13/18 10/13/18 10/14/18 1515:00 23:00 07:00 IntakeIntake Total 1215 ml 1110 ml 985 ml OutputOutput Total 280 ml 615 ml 710 ml BalanceBalance 935 ml 495 ml 275 ml Exam Exam Review of Systems: CONSTITUTIONAL: No fevers, chills. PULMONARY: No sob CARDIOVASCULAR: No chest pain/palpitations GASTROINTESTINAL: No nausea/vomiting. GENITOURINARY: No hematuria/dysuria. MUSCULOSKELETAL: No myagias/arthalgias. PSYCHIATRIC: The patient denies depression. NEUROLOGIC: No weakness Constitutional: alert Psych: no complaints Head: normocephalic ENMT: mucosa pink and moist Neck: supple, jvd (9 cm water), other (trached) Respiratory: diminished breath sounds (at bases/B) Cardiovascular: regular rate and rhythm Gastrointestinal: soft, distended Extremities: edema (none) Neurological: other (No focal defiicts) Labs Result Diagram: 10/14/18 04210/14/18 0420 Results 24hrs Laboratory Tests Test 10/13/18 13:44 10/13/18 20:02 10/14/18 01:53 10/14/18 04:15 Bedside Glucose 106 106 135 Ionized Calcium 1.1 (Measured) Test 10/14/18 04:20 White Blood Count 17.3 H Red Blood Count 2.63 L Hemoglobin 7.5 L Hematocrit 24.3 #L Mean Corpuscular 92.4 Volume Mean Corpuscular 28.5 L Hemoglobin Mean Corpuscular 30.9 L Hemoglobin Concent Red Cell Distribution 15.9 H Width Platelet Count 373 Mean Platelet Volume 10.8 H Immature Granulocytes 2.000 H % Neutrophils % 70.4 Lymphocytes % 10.6 L Monocytes % 11.0 Eosinophils % 4.9 Basophils % 1.1 Nucleated Red Blood 0.0 Cells % Immature Granulocytes 0.350 H # Neutrophils # 12.2 H Lymphocytes # 1.8 Monocytes # 1.9 H Eosinophils # 0.9 H Basophils # 0.2 H Nucleated Red Blood 0.0 Cells # Sodium Level 138 Potassium Level 3.6 Chloride Level 101 Carbon Dioxide Level 32 H Anion Gap 5 Blood Urea Nitrogen 14 Creatinine 0.69 Est Glomerular Filtrat > 60 Rate mL/min Glucose Level 114 Calcium Level 7.7 L Phosphorus Level 4.2 Magnesium Level 1.7 Total Bilirubin 0.0 L Direct Bilirubin 0.00 Indirect Bilirubin 0.0 Aspartate Amino 37 Transf (AST/SGOT) Alanine 29 Aminotransferase (ALT/ SGPT) Alkaline Phosphatase 232 H Total Protein 5.4 L Albumin 2.6 L Globulin 2.80 Albumin/Globulin Ratio 0.92 Medications Medications Current Medications Acetaminophen (Tylenol Liquid) 650 mg Q4H PRN GTB MILD PAIN(1-3)OR ELEVATED TEMP Last administered on 10/10/18at 03:10; Admin Dose 650 MG; Start 10/09/18 at 14:00 Al Hydrox/Mg Hydrox/Simethicone (Mag-Al Plus) 15 ml Q6H PRN PO GASTROINTESTINAL UPSET; Start 10/09/18 at 14:00 Alprazolam (Xanax) 0.5 mg Q6 PRN GTB ANXIETY Last administered on 10/14/18at 01:42; Admin Dose 0.5 MG; Start 10/09/18 at 14:00 Eye Lubricant (Artificial Tears Oph) 1 drop Q6H PRN BOTH EYES DRY EYES; Start 10/09/18 at 14:00 Bisacodyl (Dulcolax Supp) 10 mg DAILY PRN [place] CONSTIPATION; Start 10/09/18 at 14:00 Clonidine (Catapres) 0.1 mg DAILY PRN GTB ELEVATED BLOOD PRESSURE; Start 10/09/18 at 14:00 Diltiazem HCl (Cardizem Iv) 5 mg Q4 PRN IV ELEVATED HEART RATE; Start 10/09/18 at 14:00 Diphenhydramine HCl (Benadryl Liquid Cup) 25 mg Q6 PRN GTB ITCHING; Start 10/09/18 at 14:00 Duloxetine HCl (Cymbalta) 30 mg DAILY PO Last administered on 10/14/18 09:55; Admin Dose 30 MG; Start 10/10/18 at 09:00 Epoetin Arpan (Epogen (Esrd)) 10,000 units TuSa@1300 SC Last administered on 10/11/18at 13:54; Admin Dose 10,000 UNITS; Start 10/11/18 at 13:00 Fentanyl (Duragesic 25 Mcg/Hr Patch) 1 patch Q72H TRANSDERM Last administered on 10/11/18at 15:08; Admin Dose 1 PATCH; Start 10/11/18 at 15:00 Gabapentin (Neurontin Liquid) 400 mg Q8 GTB Last administered on 10/14/18 05:00; Admin Dose 400 MG; Start 10/09/18 at 15:30 Hydralazine HCl (Apresoline) 10 mg Q4H PRN IV ELEVATED BLOOD PRESSURE; Start 10/09/18 at 14:00 Hydrocortisone (Cortef) 10 mg DAILY PO Last administered on 10/14/18 09:55; Admin Dose 10 MG; Start 10/10/18 at 09:00 Hydrocortisone (Cortef) 5 mg 1500 PO Last administered on 10/13/18at 15:46; Admin Dose 5 MG; Start 10/09/18 at 15:00 Hydrocortisone (Cortef) 2.5 mg QHS PO Last administered on 10/13/18at 20:47; Admin Dose 2.5 MG; Start 10/09/18 at 21:00 Hydromorphone HCl (Dilaudid) 4 mg Q4H PRN PO MODERATE PAIN LEVEL 4-6 Last administered on 10/12/18 14:29; Admin Dose 4 MG; Start 10/09/18 at 14:00 Hydromorphone HCl (Dilaudid) 8 mg Q4H PRN PO SEVERE PAIN LEVEL 7-10 Last administered on 10/14/18 10:37; Admin Dose 8 MG; Start 10/09/18 at 14:00 Hydroxychloroquine Sulfate (Plaquenil) 200 mg BID PO Last administered on 10/14/18 09:55; Admin Dose 200 MG; Start 10/09/18 at 21:00 Diagnostic Test (Pha) (Accu-Chek) 1 ea 02 XX Last administered on 10/14/18 01:54; Admin Dose 1 EA; Start 10/10/18 at 02:00 Insulin Aspart (Novolog Insulin Pen) NOVOLOG *CUSTOM* ALGORITHM Q6H SC Last administered on 10/12/18 01:38; Admin Dose 1 UNIT; Start 10/09/18 at 14:00 Lactobacillus Acidophilus (Florajen3 Capsule) 1 each BID GTB Last administered on 10/14/18 09:56; Admin Dose 1 EACH; Start 10/09/18 at 21:00 Lansoprazole (Prevacid) 30 mg BID@,18 GTB Last administered on 10/14/18 05:00; Admin Dose 30 MG; Start 10/09/18 at 18:00 Levetiracetam (Keppra Liquid) 500 mg BID GTB Last administered on 10/14/18 09:54; Admin Dose 500 MG; Start 10/09/18 at 21:00 Magnesium Oxide (Mag-Ox 400) 400 mg BID GTB Last administered on 10/14/18 09:56; Admin Dose 400 MG; Start 10/09/18 at 21:00 Metoclopramide HCl (Reglan) 10 mg TID IV Last administered on 10/14/18 10:00; Admin Dose 10 MG; Start 10/09/18 at 21:00 Miconazole Nitrate (Miconazole 2% Cr) 1 applic BID TOP Last administered on 10/14/18 10:04; Admin Dose 1 APPLIC; Start 10/09/18 at 21:00 Miconazole Nitrate (Miconazole 2% Cr) 1 applic Q12 PRN TOP rash; Start 10/09/18 at 14:00 Ondansetron HCl (Zofran Inj) 4 mg Q4H PRN IV NAUSEA AND/OR VOMITING Last ad ministered on 10/14/18at 05:00; Admin Dose 4 MG; Start 10/09/18 at 14:00 Polyethylene Glycol (Miralax) 17 gm DAILY PRN GTB CONSTIPATION; Start 10/09/18 at 14:00 Senna (Senokot) 2 tab Q8 PRN PO CONSTIPATION; Start 10/09/18 at 14:00 Trimethoprim/ Sulfamethoxazole (Bactrim Susp) 40 ml DAILY GTB Last administered on 10/14/18at 09:57; Admin Dose 40 ML; Start 10/10/18 at 09:00 Zolpidem Tartrate (Ambien) 5 mg HS PRN PO INSOMNIA Last administered on 10/12/18at 21:28; Admin Dose 5 MG; Start 10/09/18 at 14:00 Miscellaneous Information 1 ea NOTE XX ; Start 10/09/18 at 15:00 Glucose (Glutose) 15 gm Q15M PRN PO DECREASED GLUCOSE; Start 10/09/18 at 15:00 Glucose (Glutose) 22.5 gm Q15M PRN PO DECREASED GLUCOSE; Start 10/09/18 at 15:00 Dextrose (D50w Syringe) 25 ml Q15M PRN IV DECREASED GLUCOSE; Start 10/09/18 at 15:00 Dextrose (D50w Syringe) 50 ml Q15M PRN IV DECREASED GLUCOSE; Start 10/09/18 at 15:00 Glucagon (Glucagen) 1 mg Q15M PRN IM DECREASED GLUCOSE; Start 10/09/18 at 15:00 Glucose (Glutose) 15 gm Q15M PRN BUCCAL DECREASED GLUCOSE; Start 10/09/18 at 15:00 Sodium Chloride 500 ml @ 500 mls/hr Q1H PRN IV BLOOD PRESSURE SUPPORT Last administered on 10/10/18at 07:59; Admin Dose 500 MLS/HR; Start 10/09/18 at 19:30 Piperacillin Sod/ Tazobactam Sod 100 ml @ 200 mls/hr Q6 IVPB Last administered on 10/14/18at 05:00; Admin Dose 200 MLS/HR; Start 10/09/18 at 20:00 Albuterol (Ventolin Hfa) 4 puff Q6H RESP THERAPY INH Last administered on 10/14/18 07:51; Admin Dose 4 PUFF; Start 10/10/18 at 02:00 Ipratropium [place] (Atrovent Hfa) 4 puff Q6H RESP THERAPY INH Last administered on 10/14/18 07:50; Admin Dose 4 PUFF; Start 10/10/18 at 02:00 Atenolol (Tenormin) 12.5 mg BID PO Last administered on 10/14/18 09:54; Admin Dose 12.5 MG; Start 10/10/18 at 21:00 Lorazepam (Ativan) 1 mg Q4 PRN IV AGITATION/ANXIETY Last administered on 10/14/18 10:37; Admin Dose 1 MG; Start 10/13/18 at 10:00 Prednisone (Prednisone) 5 mg DAILY PO Last administered on 10/14/18 09:56; Admin Dose 5 MG; Start 10/13/18 at 15:00; Stop 10/15/18 at 14:59 BRISA HAQUE Oct 14, 2018 10:44
--- NOTE | 2018-10-14 11:11 | CONS ---
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 Status: Chronic Comment: Stable with supplemental steroids due to the stress situation (2) Diabetes mellitus type 2 in nonobese Status: Chronic Comment: Adequate control (3) Hypercalcemia Status: Resolved Comment: Fully resolved and stable you calcemic including by measurement of io nized calcium Consultation Date/Type/Reason Admit Date/Time Oct 09, 2018 at 12:16 Initial Consult Date 10/12/18 Type of Consult Endocrinology Reason for Consultation Diabetes mellitus type 2; adrenal insufficiency; hypercalcemia-resolved Requesting Provider: NOLA VIDAL MD Date/Time of Note DATE: 10/14/18 TIME: 11:04 24 HR Interval Summary Constitutional: no complaints Detailed Summary Endocrine: no complaints Exam/Review of Systems Exam Vitals Vital Signs Date Temp Pulse Resp B/P (MAP) Pulse Ox O2 O2 Flow FiO2 Time Delivery Rate 10/14/18 101 30 98 85 09:15 10/14/18 124/76 Mechanical 06:00 (92) Ventilator Trach Collar 10/14/18 98.8 04:00 Intake and Output 10/13/18 10/13/18 10/14/18 1515:00 23:00 07:00 IntakeIntake Total 1215 ml 1110 ml 985 ml OutputOutput Total 280 ml 615 ml 710 ml BalanceBalance 935 ml 495 ml 275 ml Constitutional: alert, oriented Respiratory: clear to auscultation, normal air movement Results Result Diagram: 10/14/18 0420 10/14/18 0420 Results 24hrs Laboratory Tests Test 10/13/18 13:44 10/13/18 20:02 10/14/18 01:53 10/14/18 04:15 Bedside Glucose 106 106 135 Ionized Calcium 1.1 (Measured) Test 10/14/18 04:20 White Blood Count 17.3 H Red Blood Count 2.63 L Hemoglobin 7.5 L Hematocrit 24.3 #L Mean Corpuscular 92.4 Volume Mean Corpuscular 28.5 L Hemoglobin Mean Corpuscular 30.9 L Hemoglobin Concent Red Cell Distribution 15.9 H Width Platelet Count 373 Mean Platelet Volume 10.8 H Immature Granulocytes 2.000 H % Neutrophils % 70.4 Lymphocytes % 10.6 L Monocytes % 11.0 Eosinophils % 4.9 Basophils % 1.1 Nucleated Red Blood 0.0 Cells % Immature Granulocytes 0.350 H # Neutrophils # 12.2 H Lymphocytes # 1.8 Monocytes # 1.9 H Eosinophils # 0.9 H Basophils # 0.2 H Nucleated Red Blood 0.0 Cells # Sodium Level 138 Potassium Level 3.6 Chloride Level 101 Carbon Dioxide Level 32 H Anion Gap 5 Blood Urea Nitrogen 14 Creatinine 0.69 Est Glomerular Filtrat > 60 Rate mL/min Glucose Level 114 Calcium Level 7.7 L Phosphorus Level 4.2 Magnesium Level 1.7 Total Bilirubin 0.0 L Direct Bilirubin 0.00 Indirect Bilirubin 0.0 Aspartate Amino 37 Transf (AST/SGOT) Alanine 29 Aminotransferase (ALT/ SGPT) Alkaline Phosphatase 232 H Total Protein 5.4 L Albumin 2.6 L Globulin 2.80 Albumin/Globulin Ratio 0.92 Medications Medication Current Medications Acetaminophen (Tylenol Liquid) 650 mg Q4H PRN GTB MILD PAIN(1-3)OR ELEVATED TEMP Last administered on 10/10/18at 03:10; Admin Dose 650 MG; Start 10/09/18 at 14:00 Al Hydrox/Mg Hydrox/Simethicone (Mag-Al Plus) 15 ml Q6H PRN PO GASTROINTESTINAL UPSET; Start 10/09/18 at 14:00 Alprazolam (Xanax) 0.5 mg Q6 PRN GTB ANXIETY Last administered on 10/14/18at 01:42; Admin Dose 0.5 MG; Start 10/09/18 at 14:00 Eye Lubricant (Artificial Tears Oph) 1 drop Q6H PRN BOTH EYES DRY EYES; Start 10/09/18 at 14:00 Bisacodyl (Dulcolax Supp) 10 mg DAILY PRN [place] CONSTIPATION; Start 10/09/18 at 14:00 Clonidine (Catapres) 0.1 mg DAILY PRN GTB ELEVATED BLOOD PRESSURE; Start 10/09/18 at 14:00 Diltiazem HCl (Cardizem Iv) 5 mg Q4 PRN IV ELEVATED HEART RATE; Start 10/09/18 at 14:00 Diphenhydramine HCl (Benadryl Liquid Cup) 25 mg Q6 PRN GTB ITCHING; Start 10/09/18 at 14:00 Duloxetine HCl (Cymbalta) 30 mg DAILY PO Last administered on 10/14/18at 09:55; Admin Dose 30 MG; Start 10/10/18 at 09:00 Epoetin Arpan (Epogen (Esrd)) 10,000 units TuSa@1300 SC Last administered on 10/11/18 13:54; Admin Dose 10,000 UNITS; Start 10/11/18 at 13:00 Fentanyl (Duragesic 25 Mcg/Hr Patch) 1 patch Q72H TRANSDERM Last administered on 10/11/18 15:08; Admin Dose 1 PATCH; Start 10/11/18 at 15:00 Gabapentin (Neurontin Liquid) 400 mg Q8 GTB Last administered on 10/14/18 05:00; Admin Dose 400 MG; Start 10/09/18 at 15:30 Hydralazine HCl (Apresoline) 10 mg Q4H PRN IV ELEVATED BLOOD PRESSURE; Start 10/09/18 at 14:00 Hydromorphone HCl (Dilaudid) 4 mg Q4H PRN PO MODERATE PAIN LEVEL 4-6 Last administered on 10/12/18 14:29; Admin Dose 4 MG; Start 10/09/18 at 14:00 Hydromorphone HCl (Dilaudid) 8 mg Q4H PRN PO SEVERE PAIN LEVEL 7-10 Last administered on 10/14/18 10:37; Admin Dose 8 MG; Start 10/09/18 at 14:00 Hydroxychloroquine Sulfate (Plaquenil) 200 mg BID PO Last administered on 10/14/18 09:55; Admin Dose 200 MG; Start 10/09/18 at 21:00 Diagnostic Test (Pha) (Accu-Chek) 1 ea 02 XX Last administered on 10/14/18 01:54; Admin Dose 1 EA; Start 10/10/18 at 02:00 Insulin Aspart (Novolog Insulin Pen) NOVOLOG *CUSTOM* ALGORITHM Q6H SC Last administered on 10/12/18 01:38; Admin Dose 1 UNIT; Start 10/09/18 at 14:00 Lactobacillus Acidophilus (Florajen3 Capsule) 1 each BID GTB Last administered on 10/14/18 09:56; Admin Dose 1 EACH; Start 10/09/18 at 21:00 Lansoprazole (Prevacid) 30 mg BID@,18 GTB Last administered on 10/14/18 05:00; Admin Dose 30 MG; Start 10/09/18 at 18:00 Levetiracetam (Keppra Liquid) 500 mg BID GTB Last administered on 10/14/18 09:54; Admin Dose 500 MG; Start 10/09/18 at 21:00 Magnesium Oxide (Mag-Ox 400) 400 mg BID GTB Last administered on 10/14/18at 09:56; Admin Dose 400 MG; Start 10/09/18 at 21:00 Metoclopramide HCl (Reglan) 10 mg TID IV Last administered on 10/14/18at 10:00; Admin Dose 10 MG; Start 10/09/18 at 21:00 Miconazole Nitrate (Miconazole 2% Cr) 1 applic BID TOP Last administered on 10/14/18 10:04; Admin Dose 1 APPLIC; Start 10/09/18 at 21:00 Miconazole Nitrate (Miconazole 2% Cr) 1 applic Q12 PRN TOP rash; Start 10/09/18 at 14:00 Ondansetron HCl (Zofran Inj) 4 mg Q4H PRN IV NAUSEA AND/OR VOMITING Last administered on 10/14/18at 05:00; Admin Dose 4 MG; Start 10/09/18 at 14:00 Polyethylene Glycol (Miralax) 17 gm DAILY PRN GTB CONSTIPATION; Start 10/09/18 at 14:00 Senna (Senokot) 2 tab Q8 PRN PO CONSTIPATION; Start 10/09/18 at 14:00 Trimethoprim/ Sulfamethoxazole (Bactrim Susp) 40 ml DAILY GTB Last administered on 10/14/18at 09:57; Admin Dose 40 ML; Start 10/10/18 at 09:00 Zolpidem Tartrate (Ambien) 5 mg HS PRN PO INSOMNIA Last administered on 10/12/18at 21:28; Admin Dose 5 MG; Start 10/09/18 at 14:00 Miscellaneous Information 1 ea NOTE XX ; Start 10/09/18 at 15:00 Glucose (Glutose) 15 gm Q15M PRN PO DECREASED GLUCOSE; Start 10/09/18 at 15:00 Glucose (Glutose) 22.5 gm Q15M PRN PO DECREASED GLUCOSE; Start 10/09/18 at 15:00 Dextrose (D50w Syringe) 25 ml Q15M PRN IV DECREASED GLUCOSE; Start 10/09/18 at 15:00 Dextrose (D50w Syringe) 50 ml Q15M PRN IV DECREASED GLUCOSE; Start 10/09/18 at 15:00 Glucagon (Glucagen) 1 mg Q15M PRN IM DECREASED GLUCOSE; Start 10/09/18 at 15:00 Glucose (Glutose) 15 gm Q15M PRN BUCCAL DECREASED GLUCOSE; Start 10/09/18 at 15:00 Sodium Chloride 500 ml @ 500 mls/hr Q1H PRN IV BLOOD PRESSURE SUPPORT Last administered on 10/10/18at 07:59; Admin Dose 500 MLS/HR; Start 10/09/18 at 19:30 Piperacillin Sod/ Tazobactam Sod 100 ml @ 200 mls/hr Q6 IVPB Last administered on 10/14/18at 05:00; Admin Dose 200 MLS/HR; Start 10/09/18 at 20:00 Albuterol (Ventolin Hfa) 4 puff Q6H RESP THERAPY INH Last administered on 10/14/18at 07:51; Admin Dose 4 PUFF; Start 10/10/18 at 02:00 Ipratropium [place] (Atrovent Hfa) 4 puff Q6H RESP THERAPY INH Last administered on 10/14/18at 07:50; Admin Dose 4 PUFF; Start 10/10/18 at 02:00 Atenolol (Tenormin) 12.5 mg BID PO Last administered on 10/14/18at 09:54; Admin Dose 12.5 MG; Start 10/10/18 at 21:00 Lorazepam (Ativan) 1 mg Q4 PRN IV AGITATION/ANXIETY Last administered on 10/14/18at 10:37; Admin Dose 1 MG; Start 10/13/18 at 10:00 Methylprednisolone Sodium Succinate (Solu-Medrol) 40 mg Q8 IV ; Start 10/14/18 at 14:00 KEV ISSA MD Oct 14, 2018 11:11
--- NOTE | 2018-10-14 12:10 | CONS ---
Consult Date/Type/Reason Admit Date/Time Oct 09, 2018 at 12:16 Initial Consult Date 10/09/18 Type of Consult Pulmonary Requesting Provider: NOLA VIDAL MD Date/Time of Note DATE: 10/14/18 TIME: 12:08 Subjective No significant changes. FiO2 fluctuating between 60-100%. Remains awake alert and oriented. Objective Vital Signs Date Temp Pulse Resp B/P (MAP) Pulse Ox O2 O2 Flow FiO2 Time Delivery Rate 10/14/18 74 24 94 85 11:05 10/14/18 124/76 Mechanical 06:00 (92) Ventilator Trach Collar 10/14/18 98.8 04:00 Intake and Output 10/13/18 10/13/18 10/14/18 1515:00 23:00 07:00 IntakeIntake Total 1215 ml 1110 ml 985 ml OutputOutput Total 280 ml 615 ml 710 ml BalanceBalance 935 ml 495 ml 275 ml Exam PHYSICAL EXAMINATION: GENERAL: Elderly-appearing gentleman, now awake, alert, oriented on mechanical ventilation. VITAL SIGNS: NECK: Trach site clean and intact. CARDIAC: S1, S2, no added sounds or murmurs. CHEST: Diminished air entry bilaterally. ABDOMEN: Soft, nontender. No guarding or rebound. EXTREMITIES: No cyanosis, clubbing or edema. NEUROLOGIC: Generalized weakness. Vent Setting Ventilator Support Mode: AC Fraction of Inspired Oxygen pe: 85 Positive End Expiratory Pressu: 5.0 Results/Medications Result Diagram: 10/14/18 0420 10/14/18 0420 Results 24 hrs Laboratory Tests Test 10/13/18 13:44 10/13/18 20:02 10/14/18 01:53 10/14/18 04:15 Bedside Glucose 106 106 135 Ionized Calcium 1.1 (Measured) Test 10/14/18 04:20 White Blood Count 17.3 H Red Blood Count 2.63 L Hemoglobin 7.5 L Hematocrit 24.3 #L Mean Corpuscular 92.4 Volume Mean Corpuscular 28.5 L Hemoglobin Mean Corpuscular 30.9 L Hemoglobin Concent Red Cell Distribution 15.9 H Width Platelet Count 373 Mean Platelet Volume 10.8 H Immature Granulocytes 2.000 H % Neutrophils % 70.4 Lymphocytes % 10.6 L Monocytes % 11.0 Eosinophils % 4.9 Basophils % 1.1 Nucleated Red Blood 0.0 Cells % Immature Granulocytes 0.350 H # Neutrophils # 12.2 H Lymphocytes # 1.8 Monocytes # 1.9 H Eosinophils # 0.9 H Basophils # 0.2 H Nucleated Red Blood 0.0 Cells # Sodium Level 138 Potassium Level 3.6 Chloride Level 101 Carbon Dioxide Level 32 H Anion Gap 5 Blood Urea Nitrogen 14 Creatinine 0.69 Est Glomerular Filtrat > 60 Rate mL/min Glucose Level 114 Calcium Level 7.7 L Phosphorus Level 4.2 Magnesium Level 1.7 Total Bilirubin 0.0 L Direct Bilirubin 0.00 Indirect Bilirubin 0.0 Aspartate Amino 37 Transf (AST/SGOT) Alanine 29 Aminotransferase (ALT/ SGPT) Alkaline Phosphatase 232 H Total Protein 5.4 L Albumin 2.6 L Globulin 2.80 Albumin/Globulin Ratio 0.92 Medications Current Medications Acetaminophen (Tylenol Liquid) 650 mg Q4H PRN GTB MILD PAIN(1-3)OR ELEVATED TEMP Last administered on 10/10/18at 03:10; Admin Dose 650 MG; Start 10/09/18 at 14:00 Al Hydrox/Mg Hydrox/Simethicone (Mag-Al Plus) 15 ml Q6H PRN PO GASTROINTESTINAL UPSET; Start 10/09/18 at 14:00 Alprazolam (Xanax) 0.5 mg Q6 PRN GTB ANXIETY Last administered on 10/14/18at 01:42; Admin Dose 0.5 MG; Start 10/09/18 at 14:00 Eye Lubricant (Artificial Tears Oph) 1 drop Q6H PRN BOTH EYES DRY EYES; Start 10/09/18 at 14:00 Bisacodyl (Dulcolax Supp) [address] CONSTIPATION; Start 10/09/18 at 14:00 Clonidine (Catapres) 0.1 mg DAILY PRN GTB ELEVATED BLOOD PRESSURE; Start 10/09/18 at 14:00 Diltiazem HCl (Cardizem Iv) 5 mg Q4 PRN IV ELEVATED HEART RATE; Start 10/09/18 at 14:00 Diphenhydramine HCl (Benadryl Liquid Cup) 25 mg Q6 PRN GTB ITCHING; Start 10/09/18 at 14:00 Duloxetine HCl (Cymbalta) 30 mg DAILY PO Last administered on 10/14/18at 09:55; Admin Dose 30 MG; Start 10/10/18 at 09:00 Epoetin Arpan (Epogen (Esrd)) 10,000 units TuSa@1300 SC Last administered on 10/11/18 13:54; Admin Dose 10,000 UNITS; Start 10/11/18 at 13:00 Fentanyl (Duragesic 25 Mcg/Hr Patch) 1 patch Q72H TRANSDERM Last administered on 10/11/18 15:08; Admin Dose 1 PATCH; Start 10/11/18 at 15:00 Gabapentin (Neurontin Liquid) 400 mg Q8 GTB Last administered on 10/14/18 05:00; Admin Dose 400 MG; Start 10/09/18 at 15:30 Hydralazine HCl (Apresoline) 10 mg Q4H PRN IV ELEVATED BLOOD PRESSURE; Start 10/09/18 at 14:00 Hydromorphone HCl (Dilaudid) 4 mg Q4H PRN PO MODERATE PAIN LEVEL 4-6 Last administered on 10/12/18 14:29; Admin Dose 4 MG; Start 10/09/18 at 14:00 Hydromorphone HCl (Dilaudid) 8 mg Q4H PRN PO SEVERE PAIN LEVEL 7-10 Last administered on 10/14/18 10:37; Admin Dose 8 MG; Start 10/09/18 at 14:00 Hydroxychloroquine Sulfate (Plaquenil) 200 mg BID PO Last administered on 10/14/18 09:55; Admin Dose 200 MG; Start 10/09/18 at 21:00 Diagnostic Test (Pha) (Accu-Chek) 1 ea 02 XX Last administered on 10/14/18 01:54; Admin Dose 1 EA; Start 10/10/18 at 02:00 Insulin Aspart (Novolog Insulin Pen) NOVOLOG *CUSTOM* ALGORITHM Q6H SC Last administered on 10/12/18 01:38; Admin Dose 1 UNIT; Start 10/09/18 at 14:00 Lactobacillus Acidophilus (Florajen3 Capsule) 1 each BID GTB Last administered on 10/14/18 09:56; Admin Dose 1 EACH; Start 10/09/18 at 21:00 Lansoprazole (Prevacid) 30 mg BID@06,18 GTB Last administered on 10/14/18 05:00; Admin Dose 30 MG; Start 10/09/18 at 18:00 Levetiracetam (Keppra Liquid) 500 mg BID GTB Last administered on 10/14/18at 09:54; Admin Dose 500 MG; Start 10/09/18 at 21:00 Magnesium Oxide (Mag-Ox 400) 400 mg BID GTB Last administered on 10/14/18at 09:56; Admin Dose 400 MG; Start 10/09/18 at 21:00 Metoclopramide HCl (Reglan) 10 mg TID IV Last administered on 10/14/18at 10:00; Admin Dose 10 MG; Start 10/09/18 at 21:00 Miconazole Nitrate (Miconazole 2% Cr) 1 applic BID TOP Last administered on 10/14/18at 10:04; Admin Dose 1 APPLIC; Start 10/09/18 at 21:00 Miconazole Nitrate (Miconazole 2% Cr) 1 applic Q12 PRN TOP rash; Start 10/09/18 at 14:00 Ondansetron HCl (Zofran Inj) 4 mg Q4H PRN IV NAUSEA AND/OR VOMITING Last administered on 10/14/18at 05:00; Admin Dose 4 MG; Start 10/09/18 at 14:00 Polyethylene Glycol (Miralax) 17 gm DAILY PRN GTB CONSTIPATION; Start 10/09/18 at 14:00 Senna (Senokot) 2 tab Q8 PRN PO CONSTIPATION; Start 10/09/18 at 14:00 Trimethoprim/ Sulfamethoxazole (Bactrim Susp) 40 ml DAILY GTB Last administered on 10/14/18at 09:57; Admin Dose 40 ML; Start 10/10/18 at 09:00 Zolpidem Tartrate (Ambien) 5 mg HS PRN PO INSOMNIA Last administered on 10/12/18at 21:28; Admin Dose 5 MG; Start 10/09/18 at 14:00 Miscellaneous Information 1 ea NOTE XX ; Start 10/09/18 at 15:00 Glucose (Glutose) 15 gm Q15M PRN PO DECREASED GLUCOSE; Start 10/09/18 at 15:00 Glucose (Glutose) 22.5 gm Q15M PRN PO DECREASED GLUCOSE; Start 10/09/18 at 15:00 Dextrose (D50w Syringe) 25 ml Q15M PRN IV DECREASED GLUCOSE; Start 10/09/18 at 15:00 Dextrose (D50w Syringe) 50 ml Q15M PRN IV DECREASED GLUCOSE; Start 10/09/18 at 15:00 Glucagon (Glucagen) 1 mg Q15M PRN IM DECREASED GLUCOSE; Start 10/09/18 at 15:00 Glucose (Glutose) 15 gm Q15M PRN BUCCAL DECREASED GLUCOSE; Start 10/09/18 at 15:00 Sodium Chloride 500 ml @ 500 mls/hr Q1H PRN IV BLOOD PRESSURE SUPPORT Last administered on 10/10/18at 07:59; Admin Dose 500 MLS/HR; Start 10/09/18 at 19:30 Piperacillin Sod/ Tazobactam Sod 100 ml @ 200 mls/hr Q6 IVPB Last administered on 10/14/18at 05:00; Admin Dose 200 MLS/HR; Start 10/09/18 at 20:00 Albuterol (Ventolin Hfa) 4 puff Q6H RESP THERAPY INH Last administered on 10/14/18at 07:51; Admin Dose 4 PUFF; Start 10/10/18 at 02:00 Ipratropium [place] (Atrovent Hfa) 4 puff Q6H RESP THERAPY INH Last administered on 10/14/18at 07:50; Admin Dose 4 PUFF; Start 10/10/18 at 02:00 Atenolol (Tenormin) 12.5 mg BID PO Last administered on 10/14/18at 09:54; Admin Dose 12.5 MG; Start 10/10/18 at 21:00 Lorazepam (Ativan) 1 mg Q4 PRN IV AGITATION/ANXIETY Last administered on 10/14/18at 10:37; Admin Dose 1 MG; Start 10/13/18 at 10:00 Methylprednisolone Sodium Succinate (Solu-Medrol) 40 mg Q8 IV ; Start 10/14/18 at 14:00 Assessment/Plan Hospital Course (Demo Recall) IMPRESSION: 1. Acute on chronic hypoxemic respiratory failure with underlying acute respiratory distress syndrome. 2. History of HSV esophagitis. 3. Chronic sepsis. 4. History of rheumatoid arthritis. 5. C-spine disease with functional quadriplegia. 6. Dysphagia with G-tube. PLAN: 1. Continue bronchodilators. 2. Pressure control ventilation. 3. Decrease FIO2 and PEEP as tolerated. Currently increased requirements of the radiographically no change. 4. Bronchodilator treatment. 5. Deep vein thrombosis and gastrointestinal prophylaxis. 6. DC prednisone and hydrocortisone switch to Solu-Medrol. Critical care 40 minutes. DALTON DURBIN MD, [facility] Oct 14, 2018 12:10
--- NOTE | 2018-10-14 12:53 | CONS ---
Assessment/Plan Assessment/Plan Assessment/Plan (Daily) Assessment/Plan (Daily) Assessment/Plan (Daily) Interval hx: On 60% FiO2. Unable to tolerate at 50% overnight. WBC are improving. Tolerating tube feeds. C diff negative. Rectal tube with brown li quid stool. 1. Respiratory failure secondary to pneumonia versus interstitial pneumonitis from rheumatoid arthritis versus mild aspiration. The patient was getting ice chips. There was no evidence of aspiration of formula. 2. Severe rheumatoid arthritis. On steroids 3. Quadriplegia. 4. Adrenal insufficiency. 5. Gastroparesis. 6. Hypothyroidism. 7. Chronic pain syndrome. 8. Hypertension. 9. Diarrhea, improved 10. History of esophagitis PLAN: Stool cultures FOB Swallow eval Patient's tube feeding increased to 55 cc/h and is tolerating it Continue Reglan. And PPI Aspiration precautions Consultation Date/Type/Reason Admit Date/Time Oct 09, 2018 at 12:16 Initial Consult Date 10/12/18 Requesting Provider: NOLA VIDAL MD Date/Time of Note DATE: 10/14/18 TIME: 12:51 24 HR Interval Summary Free Text/Dictation No abdominal pain no nausea no vomiting, Feeding going at the rate of 55 cc/h Exam/Review of Systems Exam Vitals Vital Signs Date Temp Pulse Resp B/P (MAP) Pulse Ox O2 O2 Flow FiO2 Time Delivery Rate 10/14/18 74 24 94 85 11:05 10/14/18 124/76 Mechanical 06:00 (92) Ventilator Trach Collar 10/14/18 98.8 04:00 Intake and Output 10/13/18 10/13/18 10/14/18 1515:00 23:00 07:00 IntakeIntake Total 1215 ml 1110 ml 985 ml OutputOutput Total 280 ml 615 ml 710 ml BalanceBalance 935 ml 495 ml 275 ml Constitutional: alert, well developed Head: normocephalic, atraumatic ENMT: nl external ears & nose, nl lips & teeth, nl nasal mucosa & septum Neck: supple, non-tender Respiratory: diminished breath sounds Cardiovascular: regular rate and rhythm, nl pulses Gastrointestinal: soft, nl liver, spleen, non-tender Results Result Diagram: 10/14/1841910/14/18419 Results 24hrs Laboratory Tests Test 10/13/18 13:44 10/13/18 20:02 10/14/18 01:53 10/14/18 04:15 Bedside Glucose 106 106 135 Ionized Calcium 1.1 (Measured) Test 10/14/18 04:20 White Blood Count 17.3 H Red Blood Count 2.63 L Hemoglobin 7.5 L Hematocrit 24.3 #L Mean Corpuscular 92.4 Volume Mean Corpuscular 28.5 L Hemoglobin Mean Corpuscular 30.9 L Hemoglobin Concent Red Cell Distribution 15.9 H Width Platelet Count 373 Mean Platelet Volume 10.8 H Immature Granulocytes 2.000 H % Neutrophils % 70.4 Lymphocytes % 10.6 L Monocytes % 11.0 Eosinophils % 4.9 Basophils % 1.1 Nucleated Red Blood 0.0 Cells % Immature Granulocytes 0.350 H # Neutrophils # 12.2 H Lymphocytes # 1.8 Monocytes # 1.9 H Eosinophils # 0.9 H Basophils # 0.2 H Nucleated Red Blood 0.0 Cells # Sodium Level 138 Potassium Level 3.6 Chloride Level 101 Carbon Dioxide Level 32 H Anion Gap 5 Blood Urea Nitrogen 14 Creatinine 0.69 Est Glomerular Filtrat > 60 Rate mL/min Glucose Level 114 Calcium Level 7.7 L Phosphorus Level 4.2 Magnesium Level 1.7 Total Bilirubin 0.0 L Direct Bilirubin 0.00 Indirect Bilirubin 0.0 Aspartate Amino 37 Transf (AST/SGOT) Alanine 29 Aminotransferase (ALT/ SGPT) Alkaline Phosphatase 232 H Total Protein 5.4 L Albumin 2.6 L Globulin 2.80 Albumin/Globulin Ratio 0.92 Medications Medication Current Medications Acetaminophen (Tylenol Liquid) 650 mg Q4H PRN GTB MILD PAIN(1-3)OR ELEVATED TEMP Last administered on 10/10/18at 03:10; Admin Dose 650 MG; Start 10/09/18 at 14:00 Al Hydrox/Mg Hydrox/Simethicone (Mag-Al Plus) 15 ml Q6H PRN PO GASTROINTESTINAL UPSET; Start 10/09/18 at 14:00 Eye Lubricant (Artificial Tears Oph) 1 drop Q6H PRN BOTH EYES DRY EYES; Start 10/09/18 at 14:00 Bisacodyl (Dulcolax Supp) 10 mg DAILY PRN [place] CONSTIPATION; Start 10/09/18 at 14 :00 Clonidine (Catapres) 0.1 mg DAILY PRN GTB ELEVATED BLOOD PRESSURE; Start 10/09/18 at 14:00 Diltiazem HCl (Cardizem Iv) 5 mg Q4 PRN IV ELEVATED HEART RATE; Start 10/09/18 at 14:00 Diphenhydramine HCl (Benadryl Liquid Cup) 25 mg Q6 PRN GTB ITCHING; Start 10/09/18 at 14:00 Duloxetine HCl (Cymbalta) 30 mg DAILY PO Last administered on 10/14/18 09:55; Admin Dose 30 MG; Start 10/10/18 at 09:00 Epoetin Arpan (Epogen (Esrd)) 10,000 units TuSa@1300 SC Last administered on 10/11/18 13:54; Admin Dose 10,000 UNITS; Start 10/11/18 at 13:00 Fentanyl (Duragesic 25 Mcg/Hr Patch) 1 patch Q72H TRANSDERM Last administered on 10/11/18 15:08; Admin Dose 1 PATCH; Start 10/11/18 at 15:00 Gabapentin (Neurontin Liquid) 400 mg Q8 GTB Last administered on 10/14/18 05:00; Admin Dose 400 MG; Start 10/09/18 at 15:30 Hydralazine HCl (Apresoline) 10 mg Q4H PRN IV ELEVATED BLOOD PRESSURE; Start 10/09/18 at 14:00 Hydromorphone HCl (Dilaudid) 4 mg Q4H PRN PO MODERATE PAIN LEVEL 4-6 Last administered on 10/12/18 14:29; Admin Dose 4 MG; Start 10/09/18 at 14:00 Hydromorphone HCl (Dilaudid) 8 mg Q4H PRN PO SEVERE PAIN LEVEL 7-10 Last administered on 10/14/18 10:37; Admin Dose 8 MG; Start 10/09/18 at 14:00 Hydroxychloroquine Sulfate (Plaquenil) 200 mg BID PO Last administered on 10/14/18 09:55; Admin Dose 200 MG; Start 10/09/18 at 21:00 Diagnostic Test (Pha) (Accu-Chek) 1 ea 02 XX Last administered on 10/14/18 01:54; Admin Dose 1 EA; Start 10/10/18 at 02:00 Insulin Aspart (Novolog Insulin Pen) NOVOLOG *CUSTOM* ALGORITHM Q6H SC Last administered on 10/12/18 01:38; Admin Dose 1 UNIT; Start 10/09/18 at 14:00 Lactobacillus Acidophilus (Florajen3 Capsule) 1 each BID GTB Last administered on 10/14/18 09:56; Admin Dose 1 EACH; Start 10/09/18 at 21:00 Lansoprazole (Prevacid) 30 mg BID@,18 GTB Last administered on 10/14/18 05:00; Admin Dose 30 MG; Start 10/09/18 at 18:00 Levetiracetam (Keppra Liquid) 500 mg BID GTB Last administered on 10/14/18 09:54; Admin Dose 500 MG; Start 10/09/18 at 21:00 Magnesium Oxide (Mag-Ox 400) 400 mg BID GTB Last administered on 10/14/18 09:56; Admin Dose 400 MG; Start 10/09/18 at 21:00 Metoclopramide HCl (Reglan) 10 mg TID IV Last administered on 10/14/18 12:47; Admin Dose 10 MG; Start 10/09/18 at 21:00 Miconazole Nitrate (Miconazole 2% Cr) 1 applic BID TOP Last administered on 10/14/18 10:04; Admin Dose 1 APPLIC; Start 10/09/18 at 21:00 Miconazole Nitrate (Miconazole 2% Cr) 1 applic Q12 PRN TOP rash; Start 10/09/18 at 14:00 Ondansetron HCl (Zofran Inj) 4 mg Q4H PRN IV NAUSEA AND/OR VOMITING Last administered on 10/14/18 05:00; Admin Dose 4 MG; Start 10/09/18 at 14:00 Polyethylene Glycol (Miralax) 17 gm DAILY PRN GTB CONSTIPATION; Start 10/09/18 at 14:00 Senna (Senokot) 2 tab Q8 PRN PO CONSTIPATION; Start 10/09/18 at 14:00 Trimethoprim/ Sulfamethoxazole (Bactrim Susp) 40 ml DAILY GTB Last administered on 10/14/18 09:57; Admin Dose 40 ML; Start 10/10/18 at 09:00 Zolpidem Tartrate (Ambien) 5 mg HS PRN PO INSOMNIA Last administered on 10/12/18 21:28; Admin Dose 5 MG; Start 10/09/18 at 14:00 Miscellaneous Information 1 ea NOTE XX ; Start 10/09/18 at 15:00 Glucose (Glutose) 15 gm Q15M PRN PO DECREASED GLUCOSE; Start 10/09/18 at 15:00 Glucose (Glutose) 22.5 gm Q15M PRN PO DECREASED GLUCOSE; Start 10/09/18 at 15:00 Dextrose (D50w Syringe) 25 ml Q15M PRN IV DECREASED GLUCOSE; Start 10/09/18 at 15:00 Dextrose (D50w Syringe) 50 ml Q15M PRN IV DECREASED GLUCOSE; Start 10/09/18 at 15:00 Glucagon (Glucagen) 1 mg Q15M PRN IM DECREASED GLUCOSE; Start 10/09/18 at 15:00 Glucose (Glutose) 15 gm Q15M PRN BUCCAL DECREASED GLUCOSE; Start 10/09/18 at 15:00 Sodium Chloride 500 ml @ 500 mls/hr Q1H PRN IV BLOOD PRESSURE SUPPORT Last a dministered on 10/10/18at 07:59; Admin Dose 500 MLS/HR; Start 10/09/18 at 19:30 Piperacillin Sod/ Tazobactam Sod 100 ml @ 200 mls/hr Q6 IVPB Last administered on 10/14/18at 12:46; Admin Dose 200 MLS/HR; Start 10/09/18 at 20:00 Albuterol (Ventolin Hfa) 4 puff Q6H RESP THERAPY INH Last administered on 10/14/18at 07:51; Admin Dose 4 PUFF; Start 10/10/18 at 02:00 Ipratropium [place] (Atrovent Hfa) 4 puff Q6H RESP THERAPY INH Last administered on 10/14/18at 07:50; Admin Dose 4 PUFF; Start 10/10/18 at 02:00 Atenolol (Tenormin) 12.5 mg BID PO Last administered on 10/14/18at 09:54; Admin Dose 12.5 MG; Start 10/10/18 at 21:00 Methylprednisolone Sodium Succinate (Solu-Medrol) 40 mg Q8 IV ; Start 10/14/18 at 14:00 Quetiapine Fumarate (Seroquel) 50 mg BID GTB ; Start 10/14/18 at 13:30 Lorazepam (Ativan) 1 mg Q4H PRN GTB AGITATION/ANXIETY; Start 10/14/18 at 13:00 BHAVIK RUBIO MD Oct 14, 2018 12:53
--- NOTE | 2018-10-14 12:58 | PN ---
Date/Time of Note Date/Time of Note DATE: 10/14/18 TIME: 12:56 Assessment/Plan VTE Prophylaxis Risk score (from [facility])>0 risk: 5 SCD applied (from [facility]): Yes SCD contraindicated: other Pharmacological prophylaxis: other Pharm contraindication: other Lines/Catheters [facility]from [facility] Mid Line Central line still needed: Yes Urinary Cath still in place: No Assessment/Plan Assessment/Plan - Acute on chronic hypoxemic respiratory failure with underlying ARDS - trial for weaning off vent, remains poor. continue ventilatory support. - Dr. Villa is following in pulmonology consultation -Alvarez evaluation pending -Tachycardia, Dr. Joshi is following in cardiology consultation. - Cardiomyopathy with EF 35-40% - Rheumatoid arthritis , immunocompromised status; Continue Bactrim for Pneumocystis carinii pneumonia prophylaxis. - Dysphagia. Continue tube feeding. - Anemia of chronic disease. - Hypoparathyroidism with recent hypercalcemia, status post pamidronate. Ionized calcium is normal. - Hypertension. - Quadriplegia 2 to severe cervical spinal cord stenosis with cord compression from C3-C5, s/p laminectomy. Critical care time spent 35 minutes. Further recommendations based on clinical course. Plan of care discussed with Dr. Rosales Result Diagram: 10/14/18 0420 10/14/18 0420 Results 24hrs Laboratory Tests Test 10/13/18 13:44 10/13/18 20:02 10/14/18 01:53 10/14/18 04:15 Bedside Glucose 106 106 135 Ionized Calcium 1.1 (Measured) Test 10/14/18 04:20 White Blood Count 17.3 H Red Blood Count 2.63 L Hemoglobin 7.5 L Hematocrit 24.3 #L Mean Corpuscular 92.4 Volume Mean Corpuscular 28.5 L Hemoglobin Mean Corpuscular 30.9 L Hemoglobin Concent Red Cell Distribution 15.9 H Width Platelet Count 373 Mean Platelet Volume 10.8 H Immature Granulocytes 2.000 H % Neutrophils % 70.4 Lymphocytes % 10.6 L Monocytes % 11.0 Eosinophils % 4.9 Basophils % 1.1 Nucleated Red Blood 0.0 Cells % Immature Granulocytes 0.350 H # Neutrophils # 12.2 H Lymphocytes # 1.8 Monocytes # 1.9 H Eosinophils # 0.9 H Basophils # 0.2 H Nucleated Red Blood 0.0 Cells # Sodium Level 138 Potassium Level 3.6 Chloride Level 101 Carbon Dioxide Level 32 H Anion Gap 5 Blood Urea Nitrogen 14 Creatinine 0.69 Est Glomerular Filtrat > 60 Rate mL/min Glucose Level 114 Calcium Level 7.7 L Phosphorus Level 4.2 Magnesium Level 1.7 Total Bilirubin 0.0 L Direct Bilirubin 0.00 Indirect Bilirubin 0.0 Aspartate Amino 37 Transf (AST/SGOT) Alanine 29 Aminotransferase (ALT/ SGPT) Alkaline Phosphatase 232 H Total Protein 5.4 L Albumin 2.6 L Globulin 2.80 Albumin/Globulin Ratio 0.92 Subjective 24 Hr Interval Summary Free Text/Dictation FIO2-85%, doing well.no acute distress noted;comfortable Subjective hx not possible: pt non-verbal, pt critical, pt critical status Constitutional: requiring IVF, requiring O2 Exam/Review of Systems Exam Vitals Vital Signs Date Temp Pulse Resp B/P (MAP) Pulse Ox O2 O2 Flow FiO2 Time Delivery Rate 10/14/18 74 24 94 85 11:05 10/14/18 124/76 Mechanical 06:00 (92) Ventilator Trach Collar 10/14/18 98.8 04:00 Intake and Output 10/13/18 10/13/18 10/14/18 1414:59 22:59 06:59 IntakeIntake Total 1160 ml 1160 ml 1040 ml OutputOutput Total 355 ml 505 ml 820 ml BalanceBalance 805 ml 655 ml 220 ml Constitutional: alert, well developed, non-verbal, frail Psych: nl mood/affect Head: atraumatic Eyes: nl lids, nl sclera ENMT: nl external ears & nose Neck: other (trach intact) Respiratory: diminished breath sounds Cardiovascular: nl pulses Gastrointestinal: soft, non-tender, other (GT intact) Musculoskeletal: muscle weakness, range of motion Extremities: normal pulses Neurological: confused Lymph: nl lymph nodes Results Results 24hrs Laboratory Tests Test 10/13/18 13:44 10/13/18 20:02 10/14/18 01:53 10/14/18 04:15 Bedside Glucose 106 106 135 Ionized Calcium 1.1 (Measured) Test 10/14/18 04:20 White Blood Count 17.3 H Red Blood Count 2.63 L Hemoglobin 7.5 L Hematocrit 24.3 #L Mean Corpuscular 92.4 Volume Mean Corpuscular 28.5 L Hemoglobin Mean Corpuscular 30.9 L Hemoglobin Concent Red Cell Distribution 15.9 H Width Platelet Count 373 Mean Platelet Volume 10.8 H Immature Granulocytes 2.000 H % Neutrophils % 70.4 Lymphocytes % 10.6 L Monocytes % 11.0 Eosinophils % 4.9 Basophils % 1.1 Nucleated Red Blood 0.0 Cells % Immature Granulocytes 0.350 H # Neutrophils # 12.2 H Lymphocytes # 1.8 Monocytes # 1.9 H Eosinophils # 0.9 H Basophils # 0.2 H Nucleated Red Blood 0.0 Cells # Sodium Level 138 Potassium Level 3.6 Chloride Level 101 Carbon Dioxide Level 32 H Anion Gap 5 Blood Urea Nitrogen 14 Creatinine 0.69 Est Glomerular Filtrat > 60 Rate mL/min Glucose Level 114 Calcium Level 7.7 L Phosphorus Level 4.2 Magnesium Level 1.7 Total Bilirubin 0.0 L Direct Bilirubin 0.00 Indirect Bilirubin 0.0 Aspartate Amino 37 Transf (AST/SGOT) Alanine 29 Aminotransferase (ALT/ SGPT) Alkaline Phosphatase 232 H Total Protein 5.4 L Albumin 2.6 L Globulin 2.80 Albumin/Globulin Ratio 0.92 Medications Medication Current Medications Acetaminophen (Tylenol Liquid) 650 mg Q4H PRN GTB MILD PAIN(1-3)OR ELEVATED TEMP Last administered on 10/10/18at 03:10; Admin Dose 650 MG; Start 10/09/18 at 14:00 Al Hydrox/Mg Hydrox/Simethicone (Mag-Al Plus) 15 ml Q6H PRN PO GASTROINTESTINAL UPSET; Start 10/09/18 at 14:00 Eye Lubricant (Artificial Tears Oph) 1 drop Q6H PRN BOTH EYES DRY EYES; Start 10/09/18 at 14:00 Bisacodyl (Dulcolax Supp) 10 mg DAILY PRN [place] CONSTIPATION; Start 10/09/18 at 14:00 Clonidine (Catapres) 0.1 mg DAILY PRN GTB ELEVATED BLOOD PRESSURE; Start 10/09/18 at 14:00 Diltiazem HCl (Cardizem Iv) 5 mg Q4 PRN IV ELEVATED HEART RATE; Start 10/09/18 at 14:00 Diphenhydramine HCl (Benadryl Liquid Cup) 25 mg Q6 PRN GTB ITCHING; Start 10/09/18 at 14:00 Duloxetine HCl (Cymbalta) 30 mg DAILY PO Last administered on 10/14/18 09:55; Admin Dose 30 MG; Start 10/10/18 at 09:00 Epoetin Arpan (Epogen (Esrd)) 10,000 units TuSa@1300 SC Last administered on 10/11/18 13:54; Admin Dose 10,000 UNITS; Start 10/11/18 at 13:00 Fentanyl (Duragesic 25 Mcg/Hr Patch) 1 patch Q72H TRANSDERM Last administered on 10/11/18 15:08; Admin Dose 1 PATCH; Start 10/11/18 at 15:00 Gabapentin (Neurontin Liquid) 400 mg Q8 GTB Last administered on 10/14/18 05:00; Admin Dose 400 MG; Start 10/09/18 at 15:30 Hydralazine HCl (Apresoline) 10 mg Q4H PRN IV ELEVATED BLOOD PRESSURE; Start 10/09/18 at 14:00 Hydromorphone HCl (Dilaudid) 4 mg Q4H PRN PO MODERATE PAIN LEVEL 4-6 Last administered on 10/12/18 14:29; Admin Dose 4 MG; Start 10/09/18 at 14:00 Hydromorphone HCl (Dilaudid) 8 mg Q4H PRN PO SEVERE PAIN LEVEL 7-10 Last administered on 10/14/18 10:37; Admin Dose 8 MG; Start 10/09/18 at 14:00 Hydroxychloroquine Sulfate (Plaquenil) 200 mg BID PO Last administered on 10/14/18 09:55; Admin Dose 200 MG; Start 10/09/18 at 21:00 Diagnostic Test (Pha) (Accu-Chek) 1 ea 02 XX Last administered on 10/14/18 01:54; Admin Dose 1 EA; Start 10/10/18 at 02:00 Insulin Aspart (Novolog Insulin Pen) NOVOLOG *CUSTOM* ALGORITHM Q6H SC Last administered on 10/12/18 01:38; Admin Dose 1 UNIT; Start 10/09/18 at 14:00 Lactobacillus Acidophilus (Florajen3 Capsule) 1 each BID GTB Last administered on 10/14/18 09:56; Admin Dose 1 EACH; Start 10/09/18 at 21:00 Lansoprazole (Prevacid) 30 mg BID@06,18 GTB Last administered on 10/14/18 05:00; Admin Dose 30 MG; Start 10/09/18 at 18:00 Levetiracetam (Keppra Liquid) 500 mg BID GTB Last administered on 10/14/18at 09:54; Admin Dose 500 MG; Start 10/09/18 at 21:00 Magnesium Oxide (Mag-Ox 400) 400 mg BID GTB Last administered on 10/14/18at 09:56; Admin Dose 400 MG; Start 10/09/18 at 21:00 Metoclopramide HCl (Reglan) 10 mg TID IV Last administered on 10/14/18at 12:47; Admin Dose 10 MG; Start 10/09/18 at 21:00 Miconazole Nitrate (Miconazole 2% Cr) 1 applic BID TOP Last administered on 10/14/18at 10:04; Admin Dose 1 APPLIC; Start 10/09/18 at 21:00 Miconazole Nitrate (Miconazole 2% Cr) 1 applic Q12 PRN TOP rash; Start 10/09/18 at 14:00 Ondansetron HCl (Zofran Inj) 4 mg Q4H PRN IV NAUSEA AND/OR VOMITING Last administered on 10/14/18at 05:00; Admin Dose 4 MG; Start 10/09/18 at 14:00 Polyethylene Glycol (Miralax) 17 gm DAILY PRN GTB CONSTIPATION; Start 10/09/18 at 14:00 Senna (Senokot) 2 tab Q8 PRN PO CONSTIPATION; Start 10/09/18 at 14:00 Trimethoprim/ Sulfamethoxazole (Bactrim Susp) 40 ml DAILY GTB Last administered on 10/14/18at 09:57; Admin Dose 40 ML; Start 10/10/18 at 09:00 Zolpidem Tartrate (Ambien) 5 mg HS PRN PO INSOMNIA Last administered on 10/12/18at 21:28; Admin Dose 5 MG; Start 10/09/18 at 14:00 Miscellaneous Information 1 ea NOTE XX ; Start 10/09/18 at 15:00 Glucose (Glutose) 15 gm Q15M PRN PO DECREASED GLUCOSE; Start 10/09/18 at 15:00 Glucose (Glutose) 22.5 gm Q15M PRN PO DECREASED GLUCOSE; Start 10/09/18 at 15:00 Dextrose (D50w Syringe) 25 ml Q15M PRN IV DECREASED GLUCOSE; Start 10/09/18 at 15:00 Dextrose (D50w Syringe) 50 ml Q15M PRN IV DECREASED GLUCOSE; Start 10/09/18 at 15:00 Glucagon (Glucagen) 1 mg Q15M PRN IM DECREASED GLUCOSE; Start 10/09/18 at 15:00 Glucose (Glutose) 15 gm Q15M PRN BUCCAL DECREASED GLUCOSE; Start 10/09/18 at 15:00 Sodium Chloride 500 ml @ 500 mls/hr Q1H PRN IV BLOOD PRESSURE SUPPORT Last administered on 10/10/18at 07:59; Admin Dose 500 MLS/HR; Start 10/09/18 at 19:30 Piperacillin Sod/ Tazobactam Sod 100 ml @ 200 mls/hr Q6 IVPB Last administered on 10/14/18at 12:46; Admin Dose 200 MLS/HR; Start 10/09/18 at 20:00 Albuterol (Ventolin Hfa) 4 puff Q6H RESP THERAPY INH Last administered on 10/14/18at 07:51; Admin Dose 4 PUFF; Start 10/10/18 at 02:00 Ipratropium [place] (Atrovent Hfa) 4 puff Q6H RESP THERAPY INH Last administered on 10/14/18at 07:50; Admin Dose 4 PUFF; Start 10/10/18 at 02:00 Atenolol (Tenormin) 12.5 mg BID PO Last administered on 10/14/18at 09:54; Admin Dose 12.5 MG; Start 10/10/18 at 21:00 Methylprednisolone Sodium Succinate (Solu-Medrol) 40 mg Q8 IV ; Start 10/14/18 at 14:00 Quetiapine Fumarate (Seroquel) 50 mg BID GTB ; Start 10/14/18 at 13:30 Lorazepam (Ativan) 1 mg Q4H PRN GTB AGITATION/ANXIETY; Start 10/14/18 at 13:00 TOMMY MARTELL Oct 14, 2018 12:58
[2018-10-14] MEDS: METHYLPREDNISOLONE 40 MG INJ IV SCH ×2 (14:47→21:53)
[2018-10-14] MEDS: LORAZEPAM 1 MG TAB GTB PRN ×2 (14:47→22:45)
--- NOTE | 2018-10-14 14:57 | RADRPT ---
Echocardiogram Report Patient Name: VANESSA CHENPatient ID: [id number] : 1965 (53y 6m)Study Date: 10/13/2018 3:05:07 PM Gender: MAccession #: [id number] Tech: [employer] [facility] Location: [address] Ref.Physician: BRISA JOSHI Height(Cm): BSA: Weight(Kg): Quality: AdequateAccount #: Procedures: Echocardiographic Report: Transthoracic echocardiogram with complete 2D, M-Mode, and doppler examination. Indications: Hypotension. Measurements: 2D/M Mode Doppler Measurement Value Normal Range Measurement Value Normal Range LVIDd 2D 4.2 [ 4.2 - 5.8 ] cm AV Peak Vic 1.6 [ 100.0 - 170.0 ] cm/sec LVIDs 2D 2.7 [ 2.5 - 4.0 ] cm AV Peak PG 10.0 [ 2.0 - 9.0 ] mmHg LVPWd 2D 1.1 [ 0.6 - 1.0 ] cm LVOT Peak Vic 1.0 [ 70.0 - 110.0 ] cm/sec IVSd 2D 1.1 [ 0.6 - 1.0 ] cm LVOT Peak PG 4.0 [ 2.0 - 6.0 ] mmHg AoR Diam 2D 2.2 [ 2.6 - 3.4 ] cm MV E Peak Vic 0.8 [ 60.0 - 130.0 ] cm/sec EDV 2D 79.0 [ 62.0 - 150.0 ] ml MV A Peak Vic 1.0 [ 100.0 - 120.0 ] cm/sec ESV 2D 26.0 [ 21.0 - 61.0 ] ml MV E/A 0.8 [ 0.8 - 1.5 ] ratio EF 2D 67.1 [ 52.0 - 72.0 ] percent MV Decel Time 169 [ 104 - 258 ] msec LA Dimen 2D 2.8 [ 3.0 - 4.0 ] cm Lat E` Vic 0.1 [ 10.0 - 15.0 ] cm/sec Lateral E/E` 8.7 [ 1.0 - 2.0 ] ratio Med E` Vic 0.1 cm/sec MV E/A 0.8 [ 0.8 - 1.5 ] ratio TR Peak Vic 3.7 [ 100.0 - 280.0 ] cm/sec TR Peak PG 55.0 mmHg RVSP 63.0 [ 10.0 - 36.0 ] mmHg Findings: Left Ventricle: Normal left ventricular cavity size. Left ventricular wall thickness upper limits of normal. Moderate global left ventricular systolic dysfunction. Ejection fraction is visually estimated at 35-40 %. Tissue Doppler/Mitral Doppler indices are consistent with impaired relaxation (Stage I diastolic dysfunction). Right Ventricle: Normal right ventricular size. Normal right ventricular systolic function. Left Atrium: The left atrium is normal in size. Right Atrium: The right atrium is normal in size. Mitral Valve: Mild mitral leaflet calcification. Mild mitral annular calcification. Mild mitral valve regurgitation. Aortic Valve: No significant aortic stenosis or insufficiency. Aortic cusps appear mildly calcified. Tricuspid Valve: Normal appearance of the tricuspid valve. Estimated peak PA systolic pressure 63 mmHg. There is mild tricuspid regurgitation. Pulmonic Valve: Normal pulmonic valve appearance. Pericardium: Normal pericardium with no significant pericardial effusion. Aorta: Normal aortic root. IVC: Inferior vena cava with poor respiratory collapse, however, patient on ventilator. Conclusions: Normal left ventricular cavity size. Left ventricular wall thickness upper limits of normal. Moderate global left ventricular systolic dysfunction. Ejection fraction is visually estimated at 35-40 %. Tissue Doppler/Mitral Doppler indices are consistent with impaired relaxation (Stage I diastolic dysfunction). Mild mitral leaflet calcification. Mild mitral annular calcification. Mild mitral valve regurgitation. Normal appearance of the tricuspid valve. Estimated peak PA systolic pressure 63 mmHg. There is mild tricuspid regurgitation. Electronically Signed By: Brisa Joshi 2018-10-13 21:40:53 PST
[2018-10-14] MEDS: QUETIAPINE 25 MG TAB GTB SCH ×2 (16:10→22:17)
--- NOTE | 2018-10-14 18:04 | CONS ---
Assessment/Plan Assessment/Plan Hospital Course (Demo Recall) # sepsis, respiratory - recurrent sepsis on 10/08/2018 due to aspiration pneumonia, HCAP - possible aspiration pneumonia, recurrent pneumonia due to citrobacter - acute on chronic hypoxic and hypercarbic respiratory failure - persistent leukocytosis likely due to pneumonia, partly due to steroid margination - h/o tracheostomy on 08/26/2018 - h/o "Increased mild left apical pneumothorax" per CXR on 09/19/2018; no pneumothorax mentioned on subsequent CXR - h/o pneumomediastinum - h/o VAT on 08/11/2018 - h/o asthma/COPD exacerbation - h/o acute tracheobronchitis - h/o MAC infection but CT chest did not demonstrate features suggestive of this per chart review - h/o HCAP due to citrobacter, based on resp culture on 09/13/2018 - h/o aspergillus growing out of resp culture per (pulm note by Dr. Lopez) on 07/25/2018 - h/o elevated 1,3 Srvo-A-smgeqv level = 232 on 08/06/2018 - h/o MSSA septicemia # GI - diarrhea, C diff on 10/09/2018 was negative - h/o HSV esophagitis, took acyclovir x21 days from 08/26/2018 - h/o EGD, esophageal biopsy showed esophageal squamous mucosa showing acute inflammation, granulation tissue, and ulceration consistent with ulcerative esophagitis, rare multinucleated cells with morphology suggestive of vial cytopathic changes, No cardiac mucosa, intestinal metaplasia, dysplasia, or malignancy defined - GERD - PUD # renal/ - Hypokalemia, recurrent - CKD 2 - BPH # cardiac - tachycardia, persistent - ACD - HTN - HLD # endo - T2DM - Hgb A1c 7.2% - secondary adrenal insufficiency; steroid dependent - Hypoparathyroidism - Hypercalcemia - Pamidronate was ordered # neuro - toxic metabolic encephalopathy - Cervical myopathy - Severe cervical spinal cord stenosis with cord compression from C3-C5, s/p laminectomy in ~03/2018 - Chronic pain syndrome - Functional quadriplegia - Seizure d/o # other chronic conditions - RA with chronic steroid dependence - Immunocompromised status - Fibromyalgia rheumatica - DDD - H/o multiple rib fracture - Pt completed: meropenem (09/25/2018-10/02/2018), vancomycin (09/25/18-09/28/18) recommendations - continue pip/tazo (10/09/2018-), plan for 7 days - continue Bactrim for pneumocystis PPX - management d/w Pt's RN Nathaly and the critical care time I took to care for this Pt today was from 1715 to 1745 Consultation Date/Type/Reason Admit Date/Time Oct 09, 2018 at 12:16 Initial Consult Date 10/09/18 Type of Consult ID Requesting Provider: NOLA VIDAL MD Date/Time of Note DATE: 10/14/18 TIME: 18:01 24 HR Interval Summary Subjective hx not possible: pt non-verbal, pt critical, pt critical status Exam/Review of Systems Exam Vitals Vital Signs Date Temp Pulse Resp B/P (MAP) Pulse Ox O2 O2 Flow FiO2 Time Delivery Rate 10/14/18 95 20 98 85 17:15 10/14/18 124/76 Mechanical 06:00 (92) Ventilator Trach Collar 10/14/18 98.8 04:00 Intake and Output 10/13/18 10/13/18 10/14/18 1515:00 23:00 07:00 IntakeIntake Total 1215 ml 1110 ml 985 ml OutputOutput Total 280 ml 615 ml 710 ml BalanceBalance 935 ml 495 ml 275 ml Constitutional: frail Psych: confusion Head: normocephalic, atraumatic Eyes: nl conjunctiva, nl lids ENMT: nl external ears & nose, nl nasal mucosa & septum Neck: other (trach) Respiratory: diminished breath sounds Cardiovascular: regular rate and rhythm, nl pulses, edema Gastrointestinal: soft, non-tender, other (PEG) Genitourinary - Male: other (FC) Musculoskeletal: No swelling Extremities: edema (b/l hands) Neurological: lethargic Skin: nl turgor Results Result Diagram: 10/14/18 0420 10/14/18 0420 Results 24hrs Laboratory Tests Test 10/13/18 20:02 10/14/18 01:53 10/14/18 04:15 10/14/18 04:20 Bedside Glucose 106 135 Ionized Calcium 1.1 (Measured) White Blood Count 17.3 H Red Blood Count 2.63 L Hemoglobin 7.5 L Hematocrit 24.3 #L Mean Corpuscular Volume 92.4 Mean Corpuscular 28.5 L Hemoglobin Mean Corpuscular 30.9 L Hemoglobin Concent Red Cell Distribution 15.9 H Width Platelet Count 373 Mean Platelet Volume 10.8 H Immature Granulocytes % 2.000 H Neutrophils % 70.4 Lymphocytes % 10.6 L Monocytes % 11.0 Eosinophils % 4.9 Basophils % 1.1 Nucleated Red Blood 0.0 Cells % Immature Granulocytes # 0.350 H Neutrophils # 12.2 H Lymphocytes # 1.8 Monocytes # 1.9 H Eosinophils # 0.9 H Basophils # 0.2 H Nucleated Red Blood 0.0 Cells # Sodium Level 138 Potassium Level 3.6 Chloride Level 101 Carbon Dioxide Level 32 H Anion Gap 5 Blood Urea Nitrogen 14 Creatinine 0.69 Est Glomerular Filtrat > 60 Rate mL/min Glucose Level 114 Calcium Level 7.7 L Phosphorus Level 4.2 Magnesium Level 1.7 Total Bilirubin 0.0 L Direct Bilirubin 0.00 Indirect Bilirubin 0.0 Aspartate Amino 37 Transf (AST/SGOT) Alanine 29 Aminotransferase (ALT/S GPT) Alkaline Phosphatase 232 H Total Protein 5.4 L Albumin 2.6 L Globulin 2.80 Albumin/Globulin Ratio 0.92 Test 10/14/18 13:24 Bedside Glucose 120 Medications Medication Current Medications Acetaminophen (Tylenol Liquid) 650 mg Q4H PRN GTB MILD PAIN(1-3)OR ELEVATED TEMP Last administered on 10/10/18at 03:10; Admin Dose 650 MG; Start 10/09/18 at 14:00 Al Hydrox/Mg Hydrox/Simethicone (Mag-Al Plus) 15 ml Q6H PRN PO GASTROINTESTINAL UPSET; Start 10/09/18 at 14:00 Eye Lubricant (Artificial Tears Oph) 1 drop Q6H PRN BOTH EYES DRY EYES; Start 10/09/18 at 14:00 Bisacodyl (Dulcolax Supp) 10 mg DAILY PRN [place] CONSTIPATION; Start 10/09/18 at 14:00 Clonidine (Catapres) 0.1 mg DAILY PRN GTB ELEVATED BLOOD PRESSURE; Start 10/09/18 at 14:00 Diltiazem HCl (Cardizem Iv) 5 mg Q4 PRN IV ELEVATED HEART RATE; Start 10/09/18 at 14:00 Diphenhydramine HCl (Benadryl Liquid Cup) 25 mg Q6 PRN GTB ITCHING; Start 10/09/18 at 14:00 Duloxetine HCl (Cymbalta) 30 mg DAILY PO Last administered on 10/14/18 09:55; Admin Dose 30 MG; Start 10/10/18 at 09:00 Epoetin Arpan (Epogen (Esrd)) 10,000 units TuSa@1300 SC Last administered on 10/11/18 13:54; Admin Dose 10,000 UNITS; Start 10/11/18 at 13:00 Gabapentin (Neurontin Liquid) 400 mg Q8 GTB Last administered on 10/14/18 14:47; Admin Dose 400 MG; Start 10/09/18 at 15:30 Hydralazine HCl (Apresoline) 10 mg Q4H PRN IV ELEVATED BLOOD PRESSURE; Start 10/09/18 at 14:00 Hydromorphone HCl (Dilaudid) 4 mg Q4H PRN PO MODERATE PAIN LEVEL 7-10 Last administered on 10/12/18 14:29; Admin Dose 4 MG; Start 10/09/18 at 14:00 Hydroxychloroquine Sulfate (Plaquenil) 200 mg BID PO Last administered on 10/14/18 09:55; Admin Dose 200 MG; Start 10/09/18 at 21:00 Diagnostic Test (Pha) (Accu-Chek) 1 ea 02 XX Last administered on 10/14/18 01:54; Admin Dose 1 EA; Start 10/10/18 at 02:00 Insulin Aspart (Novolog Insulin Pen) NOVOLOG *CUSTOM* ALGORITHM Q6H SC Last administered on 10/12/18 01:38; Admin Dose 1 UNIT; Start 10/09/18 at 14:00 Lactobacillus Acidophilus (Florajen3 Capsule) 1 each BID GTB Last administered on 10/14/18 09:56; Admin Dose 1 EACH; Start 10/09/18 at 21:00 Lansoprazole (Prevacid) 30 mg BID@,18 GTB Last administered on 10/14/18 05:00; Admin Dose 30 MG; Start 10/09/18 at 18:00 Levetiracetam (Keppra Liquid) 500 mg BID GTB Last administered on 10/14/18 09:54; Admin Dose 500 MG; Start 10/09/18 at 21:00 Magnesium Oxide (Mag-Ox 400) 400 mg BID GTB Last administered on 10/14/18at 09:56; Admin Dose 400 MG; Start 10/09/18 at 21:00 Metoclopramide HCl (Reglan) 10 mg TID IV Last administered on 10/14/18at 12:47; Admin Dose 10 MG; Start 10/09/18 at 21:00 Miconazole Nitrate (Miconazole 2% Cr) 1 applic BID TOP Last administered on 10/14/18at 10:04; Admin Dose 1 APPLIC; Start 10/09/18 at 21:00 Miconazole Nitrate (Miconazole 2% Cr) 1 applic Q12 PRN TOP rash; Start 10/09/18 at 14:00 Ondansetron HCl (Zofran Inj) 4 mg Q4H PRN IV NAUSEA AND/OR VOMITING Last administered on 10/14/18at 05:00; Admin Dose 4 MG; Start 10/09/18 at 14:00 Polyethylene Glycol (Miralax) 17 gm DAILY PRN GTB CONSTIPATION; Start 10/09/18 at 14:00 Senna (Senokot) 2 tab Q8 PRN PO CONSTIPATION; Start 10/09/18 at 14:00 Trimethoprim/ Sulfamethoxazole (Bactrim Susp) 40 ml DAILY GTB Last administered on 10/14/18at 09:57; Admin Dose 40 ML; Start 10/10/18 at 09:00 Zolpidem Tartrate (Ambien) 5 mg HS PRN PO INSOMNIA Last administered on 10/12/18at 21:28; Admin Dose 5 MG; Start 10/09/18 at 14:00 Miscellaneous Information 1 ea NOTE XX ; Start 10/09/18 at 15:00 Glucose (Glutose) 15 gm Q15M PRN PO DECREASED GLUCOSE; Start 10/09/18 at 15:00 Glucose (Glutose) 22.5 gm Q15M PRN PO DECREASED GLUCOSE; Start 10/09/18 at 15:00 Dextrose (D50w Syringe) 25 ml Q15M PRN IV DECREASED GLUCOSE; Start 10/09/18 at 15:00 Dextrose (D50w Syringe) 50 ml Q15M PRN IV DECREASED GLUCOSE; Start 10/09/18 at 15:00 Glucagon (Glucagen) 1 mg Q15M PRN IM DECREASED GLUCOSE; Start 10/09/18 at 15:00 Glucose (Glutose) 15 gm Q15M PRN BUCCAL DECREASED GLUCOSE; Start 10/09/18 at 15:00 Sodium Chloride 500 ml @ 500 mls/hr Q1H PRN IV BLOOD PRESSURE SUPPORT Last administered on 10/10/18at 07:59; Admin Dose 500 MLS/HR; Start 10/09/18 at 19:30 Piperacillin Sod/ Tazobactam Sod 100 ml @ 200 mls/hr Q6 IVPB Last administered on 10/14/18at 12:46; Admin Dose 200 MLS/HR; Start 10/09/18 at 20:00 Albuterol (Ventolin Hfa) 4 puff Q6H RESP THERAPY INH Last administered on 10/14/18 13:19; Admin Dose 4 PUFF; Start 10/10/18 at 02:00 Ipratropium [place] (Atrovent Hfa) 4 puff Q6H RESP THERAPY INH Last administered on 10/14/18 13:18; Admin Dose 4 PUFF; Start 10/10/18 at 02:00 Methylprednisolone Sodium Succinate (Solu-Medrol) 40 mg Q8 IV Last administered on 10/14/18at 14:47; Admin Dose 40 MG; Start 10/14/18 at 14:00 Quetiapine Fumarate (Seroquel) 50 mg BID GTB Last administered on 10/14/18 16:10; Admin Dose 50 MG; Start 10/14/18 at 13:30 Lorazepam (Ativan) 1 mg Q4H PRN GTB AGITATION/ANXIETY Last administered on 10/14/18 14:47; Admin Dose 1 MG; Start 10/14/18 at 13:00 Lisinopril (Zestril) 2.5 mg DAILY PO ; Start 10/15/18 at 09:00 Carvedilol (Coreg) 3.125 mg BID PO ; Start 10/14/18 at 21:00 Hydromorphone HCl (Dilaudid) 2 mg Q4H PRN PO PAIN LEVEL 4-6; Start 10/14/18 at 17:30 Fentanyl (Duragesic 50 Mcg/Hr Patch) 1 patch Q72H TRANSDERM ; Start 10/14/18 at 18:30 NEMO MARTINEZ M.D. Oct 14, 2018 18:04
[2018-10-14] MEDS ORDERED: FENTAnyl PATCH 50 MCG/HR TRANSDERM SCH (18:30)
[2018-10-15] VITALS (44 sets, daily range): BP systolic 96–151; BP diastolic 62–100; PULSE 99–126; RESP 19–45
[2018-10-15] MEDS: ZOLPIDEM 5 MG TAB PO PRN (00:09)
[2018-10-15] MEDS: ALBUTEROL HFA 8 GM INHALER INH SCH ×4 (01:14→22:20)
[2018-10-15] MEDS: IPRATROPIUM (HFA) 12.9 GM INHALER INH SCH ×4 (01:14→22:20)
[2018-10-15] MEDS: ACCU-CHEK XX SCH (01:32)
[2018-10-15] MEDS: INSULIN ASPART [NOVOLOG] 3 ML PEN SC SCH ×4 (01:33→21:03)
[2018-10-15] MEDS: LORAZEPAM 1 MG TAB GTB PRN ×4 (03:47→16:20)
[2018-10-15] MEDS: HYDROmorphONE 2 MG TAB PO PRN ×5 (03:55→22:55)
[2018-10-15] MEDS: GABAPENTIN (50 MG/ML PO SYG) GTB SCH ×3 (05:18→21:19)
[2018-10-15] MEDS: METHYLPREDNISOLONE 40 MG INJ IV SCH ×3 (05:18→21:15)
[2018-10-15] MEDS: PIPER-TAZO 3.375 GM IV (PMX) 100 ML IVPB SCH ×3 (05:18→17:48)
[2018-10-15] MEDS: LANSOPRAZOLE 30 MG CAP GTB SCH ×2 (05:18→17:48)
--- NOTE | 2018-10-15 07:40 | PN ---
Date/Time of Note Date/Time of Note DATE: 10/15/18 TIME: 07:36 Assessment/Plan VTE Prophylaxis Risk score (from Nsg)>0 risk: 4 SCD applied (from Nsg): Yes Pharmacological prophylaxis: other Lines/Catheters IV Catheter Type (from Nrsg): Mid Line Urinary Cath still in place: No Assessment/Plan Hospital Course brian follow up SUBJECTIVE: The patient is stable on full ventilatory support. No other acute events noted. FIO2 fluctuating between 60-80% good uop noted OBJECTIVE: HEENT: Head is normocephalic. NECK: Supple. HEART: Regular rate. LUNGS: Show diminished breath sounds at the base. + crackles ABDOMEN: Soft, nontender to palpation without rebound or guarding. EXTREMITIES: Negative for clubbing, cyanosis, no edema. DERMATOLOGIC: No rashes. MUSCULOSKELETAL: No joint effusion. NEUROLOGIC: No change in exam. MEDICATIONS: The patient's medications have been reviewed. I/P 1. Nonoliguric acute kidney injury on top of chronic kidney disease. Etiology of acute kidney injury is secondary to hemodynamics. needs diuretics for pulm edema 2. Hypernatremia, improved. Etiology is likely due to insensible losses. Continue free water flushes, continue to monitor sodium levels. 3. Anemia. Continue to monitor hemoglobin and hematocrit levels. 4. Mineral bone disorder, monitor calcium and phosphorus levels. 5. Ventilator-dependent respiratory failure. Vent settings and ABG was reviewed. Continue to monitor. 6. Dysphagia, status post percutaneous endoscopic gastrostomy. Continue tube feeding. 7. Quadriplegia. Continue to monitor. 8. Sepsis secondary to pneumonia. Continue current antibiotic regimen. 9. Tachyarrhythmia. Continue current medical management. 10. Chronic encephalopathy. 11. Chronic pain syndrome. Continue current pain regimen. 12. Seizure disorder. Continue current treatment plan. 13. Rheumatoid arthritis. 14. Adrenal insufficiency. Continue Cortef. Result Diagram: 10/14/1841910/14/18419 Results 24hrs Laboratory Tests Test 10/14/18 13:24 10/14/18 20:46 10/15/18 01:32 Bedside Glucose 120 181 150 Exam/Review of Systems Exam Vitals Vital Signs Date Temp Pulse Resp B/P (MAP) Pulse Ox O2 O2 Flow FiO2 Time Delivery Rate 10/15/18 114 32 124/86 90 Mechanical 06:00 (99) Ventilator Trach Collar 3/2/19 70 05:14 10/15/18 98.6 04:00 Intake and Output 10/14/18 10/14/18 10/15/18 1414:59 22:59 06:59 IntakeIntake Total 940 ml 940 ml 940 ml OutputOutput Total 550 ml 440 ml 730 ml BalanceBalance 390 ml 500 ml 210 ml Results Results 24hrs Laboratory Tests Test 10/14/18 13:24 10/14/18 20:46 10/15/18 01:32 Bedside Glucose 120 181 150 Medications Medication Current Medications Acetaminophen (Tylenol Liquid) 650 mg Q4H PRN GTB MILD PAIN(1-3)OR ELEVATED TEMP Last administered on 10/10/18at 03:10; Admin Dose 650 MG; Start 10/09/18 at 14:00 Al Hydrox/Mg Hydrox/Simethicone (Mag-Al Plus) 15 ml Q6H PRN PO GASTROINTESTINAL UPSET; Start 10/09/18 at 14:00 Eye Lubricant (Artificial Tears Oph) 1 drop Q6H PRN BOTH EYES DRY EYES; Start 10/09/18 at 14:00 Bisacodyl (Dulcolax Supp) 10 mg DAILY PRN [place] CONSTIPATION; Start 10/09/18 at 14:00 Clonidine (Catapres) 0.1 mg DAILY PRN GTB ELEVATED BLOOD PRESSURE; Start 10/09/18 at 14:00 Diltiazem HCl (Cardizem Iv) 5 mg Q4 PRN IV ELEVATED HEART RATE; Start 10/09/18 at 14:00 Diphenhydramine HCl (Benadryl Liquid Cup) 25 mg Q6 PRN GTB ITCHING; Start 10/09/18 at 14:00 Duloxetine HCl (Cymbalta) 30 mg DAILY PO Last administered on 10/14/18at 09:55; Admin Dose 30 MG; Start 10/10/18 at 09:00 Epoetin Arpan (Epogen (Esrd)) 10,000 units TuSa@1300 SC Last administered on 10/11/18at 13:54; Admin Dose 10,000 UNITS; Start 10/11/18 at 13:00 Gabapentin (Neurontin Liquid) 400 mg Q8 GTB Last administered on 10/15/18at 05:18; Admin Dose 400 MG; Start 10/09/18 at 15:30 Hydralazine HCl (Apresoline) 10 mg Q4H PRN IV ELEVATED BLOOD PRESSURE; Start 10/09/18 at 14:00 Hydromorphone HCl (Dilaudid) 4 mg Q4H PRN PO MODERATE PAIN LEVEL 7-10 Last administered on 10/15/18 03:55; Admin Dose 4 MG; Start 10/09/18 at 14:00 Hydroxychloroquine Sulfate (Plaquenil) 200 mg BID PO Last administered on 10/14/18 20:42; Admin Dose 200 MG; Start 10/09/18 at 21:00 Diagnostic Test (Pha) (Accu-Chek) 1 ea 02 XX Last administered on 10/15/18 01:32; Admin Dose 1 EA; Start 10/10/18 at 02:00 Insulin Aspart (Novolog Insulin Pen) NOVOLOG *CUSTOM* ALGORITHM Q6H SC Last administered on 10/14/18 20:51; Admin Dose 1 UNIT; Start 10/09/18 at 14:00 Lactobacillus Acidophilus (Florajen3 Capsule) 1 each BID GTB Last administered on 10/14/18 20:41; Admin Dose 1 EACH; Start 10/09/18 at 21:00 Lansoprazole (Prevacid) 30 mg BID@06,18 GTB Last administered on 10/15/18 05:18; Admin Dose 30 MG; Start 10/09/18 at 18:00 Levetiracetam (Keppra Liquid) 500 mg BID GTB Last administered on 10/14/18 20:41; Admin Dose 500 MG; Start 10/09/18 at 21:00 Magnesium Oxide (Mag-Ox 400) 400 mg BID GTB Last administered on 10/14/18 20:42; Admin Dose 400 MG; Start 10/09/18 at 21:00 Metoclopramide HCl (Reglan) 10 mg TID IV Last administered on 10/14/18 20:42; Admin Dose 10 MG; Start 10/09/18 at 21:00 Miconazole Nitrate (Miconazole 2% Cr) 1 applic BID TOP Last administered on 10/14/18 20:43; Admin Dose 1 APPLIC; Start 10/09/18 at 21:00 Miconazole Nitrate (Miconazole 2% Cr) 1 applic Q12 PRN TOP rash; Start 10/09/18 at 14:00 Ondansetron HCl (Zofran Inj) 4 mg Q4H PRN IV NAUSEA AND/OR VOMITING Last administered on 10/14/18at 23:18; Admin Dose 4 MG; Start 10/09/18 at 14:00 Polyethylene Glycol (Miralax) 17 gm DAILY PRN GTB CONSTIPATION; Start 10/09/18 at 14:00 Senna (Senokot) 2 tab Q8 PRN PO CONSTIPATION; Start 10/09/18 at 14:00 Trimethoprim/ Sulfamethoxazole (Bactrim Susp) 40 ml DAILY GTB Last administered on 10/14/18at 09:57; Admin Dose 40 ML; Start 10/10/18 at 09:00 Zolpidem Tartrate (Ambien) 5 mg HS PRN PO INSOMNIA Last administered on 10/15/18at 00:09; Admin Dose 5 MG; Start 10/09/18 at 14:00 Miscellaneous Information 1 ea NOTE XX ; Start 10/09/18 at 15:00 Glucose (Glutose) 15 gm Q15M PRN PO DECREASED GLUCOSE; Start 10/09/18 at 15:00 Glucose (Glutose) 22.5 gm Q15M PRN PO DECREASED GLUCOSE; Start 10/09/18 at 15:00 Dextrose (D50w Syringe) 25 ml Q15M PRN IV DECREASED GLUCOSE; Start 10/09/18 at 15:00 Dextrose (D50w Syringe) 50 ml Q15M PRN IV DECREASED GLUCOSE; Start 10/09/18 at 15:00 Glucagon (Glucagen) 1 mg Q15M PRN IM DECREASED GLUCOSE; Start 10/09/18 at 15:00 Glucose (Glutose) 15 gm Q15M PRN BUCCAL DECREASED GLUCOSE; Start 10/09/18 at 15:00 Sodium Chloride 500 ml @ 500 mls/hr Q1H PRN IV BLOOD PRESSURE SUPPORT Last administered on 10/10/18at 07:59; Admin Dose 500 MLS/HR; Start 10/09/18 at 19:30 Piperacillin Sod/ Tazobactam Sod 100 ml @ 200 mls/hr Q6 IVPB Last administered on 10/15/18at 05:18; Admin Dose 200 MLS/HR; Start 10/09/18 at 20:00 Albuterol (Ventolin Hfa) 4 puff Q6H RESP THERAPY INH Last administered on 10/15/18 01:14; Admin Dose 4 PUFF; Start 10/10/18 at 02:00 Ipratropium [place] (Atrovent Hfa) 4 puff Q6H RESP THERAPY INH Last administered on 10/15/18 01:14; Admin Dose 4 PUFF; Start 10/10/18 at 02:00 Methylprednisolone Sodium Succinate (Solu-Medrol) 40 mg Q8 IV Last administered on 10/15/18 05:18; Admin Dose 40 MG; Start 10/14/18 at 14:00 Quetiapine Fumarate (Seroquel) 50 mg BID GTB Last administered on 10/14/18 22:17; Admin Dose 50 MG; Start 10/14/18 at 13:30 Lorazepam (Ativan) 1 mg Q4H PRN GTB AGITATION/ANXIETY Last administered on 10/15/18 03:47; Admin Dose 1 MG; Start 10/14/18 at 13:00 Lisinopril (Zestril) 2.5 mg DAILY PO ; Start 10/15/18 at 09:00 Carvedilol (Coreg) 3.125 mg BID PO Last administered on 10/14/18 23:47; Admin Dose 3.125 MG; Start 10/14/18 at 21:00 Hydromorphone HCl (Dilaudid) 2 mg Q4H PRN PO PAIN LEVEL 4-6; Start 10/14/18 at 17:30 Fentanyl (Duragesic 50 Mcg/Hr Patch) 1 patch Q72H TRANSDERM Last administered on 10/14/18 20:18; Admin Dose 1 PATCH; Start 10/14/18 at 18:30 ELLIE QUICK DO Oct 15, 2018 07:40
[2018-10-15] MEDS: DULOXETINE 30 MG CAP DR PO SCH (08:46)
[2018-10-15] MEDS: TRIMETHOPRIM/SULFAMETHOX (PO SYG) GTB SCH (08:46)
[2018-10-15] MEDS: LEVETIRACETAM (100 MG/ML) 5ML CUP GTB SCH ×2 (08:46→21:16)
[2018-10-15] MEDS: HYDROXYCHLOROQUINE 200 MG TAB PO SCH ×2 (08:46→21:15)
[2018-10-15] MEDS: QUETIAPINE 25 MG TAB GTB SCH ×2 (08:46→21:15)
[2018-10-15] MEDS: MAGNESIUM OXIDE 400 MG TAB GTB SCH ×2 (08:47→21:15)
[2018-10-15] MEDS: LISINOPRIL 5 MG TAB PO SCH (08:47)
[2018-10-15] MEDS: MICONAZOLE 2% 30 GM CR TOP SCH ×2 (08:48→21:16)
[2018-10-15] MEDS: L ACIDOPHIL/B LACTIS/B LONGUM CAPSULE GTB SCH ×2 (08:48→21:19)
[2018-10-15] MEDS: BALSAM PERU/CASTOR OIL 60 GM TUBE TOP SCH ×2 (08:48→21:16)
[2018-10-15] MEDS: METOCLOPRAMIDE 10 MG INJ IV SCH ×3 (08:48→21:15)
[2018-10-15] MEDS ORDERED: BUMETANIDE 3 MG in DEXTROSE 5% 18 ML IV ONE (09:00)
[2018-10-15] MEDS: DILTIAZEM 25 MG INJ IV PRN (09:00)
--- NOTE | 2018-10-15 10:36 | PN ---
Date/Time of Note Date/Time of Note DATE: 10/15/18 TIME: 10:35 Assessment/Plan VTE Prophylaxis Risk score (from Ns)>0 risk: 5 SCD applied (from Ns): Yes SCD contraindicated: other Pharmacological prophylaxis: other Lines/Catheters [facility]from [facility] Mid Line Central line still needed: Yes Urinary Cath still in place: No Assessment/Plan Assessment/Plan - Acute on chronic hypoxemic respiratory failure with underlying ARDS - trial for weaning off vent, remains poor. continue ventilatory support. - Dr. Villa is following in pulmonology consultation -Alvarez evaluation pending - cont ICU monitoring -Tachycardia, Dr. Joshi is following in cardiology consultation. - Cardiomyopathy with EF 35-40% - Rheumatoid arthritis , immunocompromised status; Continue Bactrim for Pneumocystis carinii pneumonia prophylaxis. - Dysphagia. Continue tube feeding. - Anemia of chronic disease. - Hypoparathyroidism with recent hypercalcemia, status post pamidronate. Ionized calcium is normal. - Hypertension. - Quadriplegia 2 to severe cervical spinal cord stenosis with cord compression from C3-C5, s/p laminectomy. Critical care time spent 35 minutes. Further recommendations based on clinical course. Plan of care discussed with Dr. Rosales Result Diagram: 10/14/18 0420 10/15/18 0530 Results 24hrs Laboratory Tests Test 10/14/18 13:24 10/14/18 20:46 10/15/18 01:32 10/15/18 05:30 Bedside Glucose 120 181 150 Sodium Level 141 Potassium Level 4.1 Chloride Level 101 Carbon Dioxide 32 H Level Anion Gap 8 Blood Urea 15 Nitrogen Creatinine 0.62 Est Glomerular > 60 Filtrat Rate mL/min Glucose Level 130 Calcium Level 7.6 L Phosphorus Level 4.4 Magnesium Level 1.8 Total Bilirubin 0.0 L Direct Bilirubin 0.00 Indirect Bilirubin 0.0 Aspartate Amino 34 Transf (AST/SGOT) Alanine 28 Aminotransferase ( ALT/SGPT) Alkaline 237 H Phosphatase Total Protein 6.3 Albumin 3.1 L Globulin 3.20 Albumin/Globulin 0.96 Ratio Test 10/15/18 07:00 10/15/18 08:44 Blood Gas Specimen Blood arterial Source Arterial Blood 10/15/2018 9:30:16 Date Drawn AM Arterial Blood pH 7.391 (Temp corrected) Arterial Blood 51.1 H pCO2 (Temp correct) Arterial Blood pO2 134.2 H (Temp corrected) Arterial Blood 30.3 H HCO3 Arterial Blood 4.5 H Base Excess Arterial Blood 98.2 H Oxygen Saturation [place] Test ACCEPTAB Arterial Blood Gas Right Radial Puncture Site Arterial 0.4 Blood Carboxyhemog lobin Arterial Blood 0.2 Methemoglobin Blood Gas A-a O2 527.7 H Differential Oxyhemoglobin 97.6 Percent Blood Gas 37.0 Temperature Blood Gas 20.0 Respiration Rate Blood Gas Actual 23 Respiration Rate Blood Gas Modality VENT - PC FiO2 100.0 Blood Gas 0.70 Inspiratory Time Blood Gas Tidal 428.0 Volume Blood Gas Low PEEP 5.0 Setting Blood Gas 28.0 Inspiratory Pressure Blood Gas Notified Lauren MILLER [employer]AK[employer] PROFESS[employer] Whom Blood Gas Notified 10/15/2018 9:52:01 Time AM Bedside Glucose 129 Exam/Review of Systems Exam Vitals Vital Signs Date Temp Pulse Resp B/P (MAP) Pulse Ox O2 O2 Flow FiO2 Time Delivery Rate 10/15/18 100 08:00 10/15/18 114 32 124/86 90 Mechanical 06:00 (99) Ventilator Trach Collar 10/15/18 98.6 04:00 Intake and Output 10/14/18 10/14/18 10/15/18 1414:59 22:59 06:59 IntakeIntake Total 940 ml 940 ml 940 ml OutputOutput Total 550 ml 440 ml 730 ml BalanceBalance 390 ml 500 ml 210 ml Constitutional: alert, non-verbal, frail Psych: nl mood/affect Eyes: nl lids, nl sclera ENMT: nl external ears & nose Neck: non-tender, other (trach intact) Respiratory: diminished breath sounds Cardiovascular: nl pulses, other (s1s2) Gastrointestinal: soft, other (GT intact) Musculoskeletal: muscle weakness, range of motion Extremities: normal pulses Neurological: confused, lethargic Skin: other Lymph: nontender Results Results 24hrs Laboratory Tests Test 10/14/18 13:24 10/14/18 20:46 10/15/18 01:32 10/15/18 05:30 Bedside Glucose 120 181 150 Sodium Level 141 Potassium Level 4.1 Chloride Level 101 Carbon Dioxide 32 H Level Anion Gap 8 Blood Urea 15 Nitrogen Creatinine 0.62 Est Glomerular > 60 Filtrat Rate mL/min Glucose Level 130 Calcium Level 7.6 L Phosphorus Level 4.4 Magnesium Level 1.8 Total Bilirubin 0.0 L Direct Bilirubin 0.00 Indirect Bilirubin 0.0 Aspartate Amino 34 Transf (AST/SGOT) Alanine 28 Aminotransferase ( ALT/SGPT) Alkaline 237 H Phosphatase Total Protein 6.3 Albumin 3.1 L Globulin 3.20 Albumin/Globulin 0.96 Ratio Test 10/15/18 07:00 10/15/18 08:44 Blood Gas Specimen Blood arterial Source Arterial Blood 10/15/2018 9:30:16 Date Drawn AM Arterial Blood pH 7.391 (Temp corrected) Arterial Blood 51.1 H pCO2 (Temp correct) Arterial Blood pO2 134.2 H (Temp corrected) Arterial Blood 30.3 H HCO3 Arterial Blood 4.5 H Base Excess Arterial Blood 98.2 H Oxygen Saturation [place] Test ACCEPTAB Arterial Blood Gas Right Radial Puncture Site Arterial 0.4 Blood Carboxyhemog lobin Arterial Blood 0.2 Methemoglobin Blood Gas A-a O2 527.7 H Differential Oxyhemoglobin 97.6 Percent Blood Gas 37.0 Temperature Blood Gas 20.0 Respiration Rate Blood Gas Actual 23 Respiration Rate Blood Gas Modality VENT - PC FiO2 100.0 Blood Gas 0.70 Inspiratory Time Blood Gas Tidal 428.0 Volume Blood Gas Low PEEP 5.0 Setting Blood Gas 28.0 Inspiratory Pressure Blood Gas Notified Lauren MILLER [employer]AK[employer] PROFESSOR Whom Blood Gas Notified 10/15/2018 9:52:01 Time AM Bedside Glucose 129 Medications Medication Current Medications Acetaminophen (Tylenol Liquid) 650 mg Q4H PRN GTB MILD PAIN(1-3)OR ELEVATED TEMP Last administered on 10/10/18at 03:10; Admin Dose 650 MG; Start 10/09/18 at 14:00 Al Hydrox/Mg Hydrox/Simethicone (Mag-Al Plus) 15 ml Q6H PRN PO GASTROINTESTINAL UPSET; Start 10/09/18 at 14:00 Eye Lubricant (Artificial Tears Oph) 1 drop Q6H PRN BOTH EYES DRY EYES; Start 10/09/18 at 14:00 Bisacodyl (Dulcolax Supp) 10 mg DAILY PRN ND CONSTIPATION; Start 10/09/18 at 14:00 Clonidine (Catapres) 0.1 mg DAILY PRN GTB ELEVATED BLOOD PRESSURE; Start 10/09/18 at 14:00 Diltiazem HCl (Cardizem Iv) 5 mg Q4 PRN IV ELEVATED HEART RATE Last administered on 10/15/18 09:00; Admin Dose 5 MG; Start 10/09/18 at 14:00 Diphenhydramine HCl (Benadryl Liquid Cup) 25 mg Q6 PRN GTB ITCHING; Start at 14:00 Duloxetine HCl (Cymbalta) 30 mg DAILY PO Last administered on 10/15/18 08:46; Admin Dose 30 MG; Start 10/10/18 at 09:00 Epoetin Arpan (Epogen (Esrd)) 10,000 units TuSa@1300 SC Last administered on 10/11/18 13:54; Admin Dose 10,000 UNITS; Start 10/11/18 at 13:00 Gabapentin (Neurontin Liquid) 400 mg Q8 GTB Last administered on 10/15/18 05:18; Admin Dose 400 MG; Start 10/09/18 at 15:30 Hydralazine HCl (Apresoline) 10 mg Q4H PRN IV ELEVATED BLOOD PRESSURE; Start 10/09/18 at 14:00 Hydromorphone HCl (Dilaudid) 4 mg Q4H PRN PO MODERATE PAIN LEVEL 7-10 Last administered on 10/15/18 08:36; Admin Dose 4 MG; Start 10/09/18 at 14:00 Hydroxychloroquine Sulfate (Plaquenil) 200 mg BID PO Last administered on 10/15/18 08:46; Admin Dose 200 MG; Start 10/09/18 at 21:00 Diagnostic Test (Pha) (Accu-Chek) 1 ea 02 XX Last administered on 10/15/18 01:32; Admin Dose 1 EA; Start 10/10/18 at 02:00 Insulin Aspart (Novolog Insulin Pen) NOVOLOG *CUSTOM* ALGORITHM Q6H SC Last administered on 10/14/18 20:51; Admin Dose 1 UNIT; Start 10/09/18 at 14:00 Lactobacillus Acidophilus (Florajen3 Capsule) 1 each BID GTB Last administered on 10/15/18 08:48; Admin Dose 1 EACH; Start 10/09/18 at 21:00 Lansoprazole (Prevacid) 30 mg BID@06,18 GTB Last administered on 10/15/18 05:18; Admin Dose 30 MG; Start 10/09/18 at 18:00 Levetiracetam (Keppra Liquid) 500 mg BID GTB Last administered on 10/15/18 08:46; Admin Dose 500 MG; Start 10/09/18 at 21:00 Magnesium Oxide (Mag-Ox 400) 400 mg BID GTB Last administered on 10/15/18 08:47; Admin Dose 400 MG; Start 10/09/18 at 21:00 Metoclopramide HCl (Reglan) 10 mg TID IV Last administered on 10/15/18 08:48; Admin Dose 10 MG; Start 10/09/18 at 21:00 Miconazole Nitrate (Miconazole 2% Cr) 1 applic BID TOP Last administered on 10/15/18 08:48; Admin Dose 1 APPLIC; Start 10/09/18 at 21:00 Miconazole Nitrate (Miconazole 2% Cr) 1 applic Q12 PRN TOP rash; Start 10/09/18 at 14:00 Ondansetron HCl (Zofran Inj) 4 mg Q4H PRN IV NAUSEA AND/OR VOMITING Last administered on 10/14/18at 23:18; Admin Dose 4 MG; Start 10/09/18 at 14:00 Polyethylene Glycol (Miralax) 17 gm DAILY PRN GTB CONSTIPATION; Start 10/09/18 at 14:00 Senna (Senokot) 2 tab Q8 PRN PO CONSTIPATION; Start 10/09/18 at 14:00 Trimethoprim/ Sulfamethoxazole (Bactrim Susp) 40 ml DAILY GTB Last administered on 10/15/18 08:46; Admin Dose 40 ML; Start 10/10/18 at 09:00 Zolpidem Tartrate (Ambien) 5 mg HS PRN PO INSOMNIA Last administered on 10/15/18at 00:09; Admin Dose 5 MG; Start 10/09/18 at 14:00 Miscellaneous Information 1 ea NOTE XX ; Start 10/09/18 at 15:00 Glucose (Glutose) 15 gm Q15M PRN PO DECREASED GLUCOSE; Start 10/09/18 at 15:00 Glucose (Glutose) 22.5 gm Q15M PRN PO DECREASED GLUCOSE; Start 10/09/18 at 15:00 Dextrose (D50w Syringe) 25 ml Q15M PRN IV DECREASED GLUCOSE; Start 10/09/18 at 15:00 Dextrose (D50w Syringe) 50 ml Q15M PRN IV DECREASED GLUCOSE; Start 10/09/18 at 15:00 Glucagon (Glucagen) 1 mg Q15M PRN IM DECREASED GLUCOSE; Start 10/09/18 at 15:00 Glucose (Glutose) 15 gm Q15M PRN BUCCAL DECREASED GLUCOSE; Start 10/09/18 at 15:00 Sodium Chloride 500 ml @ 500 mls/hr Q1H PRN IV BLOOD PRESSURE SUPPORT Last administered on 10/10/18at 07:59; Admin Dose 500 MLS/HR; Start 10/09/18 at 19:30 Piperacillin Sod/ Tazobactam Sod 100 ml @ 200 mls/hr Q6 IVPB Last administered on 10/15/18 05:18; Admin Dose 200 MLS/HR; Start 10/09/18 at 20:00 Albuterol (Ventolin Hfa) 4 puff Q6H RESP THERAPY INH Last administered on 10/15/18 08:24; Admin Dose 4 PUFF; Start 10/10/18 at 02:00 Ipratropium [place] (Atrovent Hfa) 4 puff Q6H RESP THERAPY INH Last administered on 10/15/18 08:23; Admin Dose 4 PUFF; Start 10/10/18 at 02:00 Methylprednisolone Sodium Succinate (Solu-Medrol) 40 mg Q8 IV Last administered on 10/15/18 05:18; Admin Dose 40 MG; Start 10/14/18 at 14:00 Quetiapine Fumarate (Seroquel) 50 mg BID GTB Last administered on 10/15/18 08:46; Admin Dose 50 MG; Start 10/14/18 at 13:30 Lorazepam (Ativan) 1 mg Q4H PRN GTB AGITATION/ANXIETY Last administered on 10/15/18 08:06; Admin Dose 1 MG; Start 10/14/18 at 13:00 Lisinopril (Zestril) 2.5 mg DAILY PO Last administered on 10/15/18 08:47; Admin Dose 2.5 MG; Start 10/15/18 at 09:00 Carvedilol (Coreg) 3.125 mg BID PO Last administered on 10/14/18 23:47; Admin Dose 3.125 MG; Start 10/14/18 at 21:00 Hydromorphone HCl (Dilaudid) 2 mg Q4H PRN PO PAIN LEVEL 4-6; Start 10/14/18 at 17:30 Fentanyl (Duragesic 50 Mcg/Hr Patch) 1 patch Q72H TRANSDERM Last administered on 10/14/18at 20:18; Admin Dose 1 PATCH; Start 10/14/18 at 18:30 Bumetanide 3 mg/ Dextrose 30 ml @ 10 mls/hr Q3H ONCE IV Last administered on 10/15/18at 10:04; Admin Dose 10 MLS/HR; Start 10/15/18 at 09:00; Stop 10/15/18 at 11:59 TOMMY MARTELL Oct 15, 2018 10:36
--- NOTE | 2018-10-15 11:11 | CONS ---
Assessment/Plan Assessment/Plan Problems: (1) Diabetes mellitus type 2 in nonobese Status: Chronic Comment: Good control on only ISS in the face of large dose corticosteroids. 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 Stable but doubt supplementation will be necessary Consultation Date/Type/Reason Admit Date/Time Oct 09, 2018 at 12:16 Initial Consult Date 10/12/18 Type of Consult Endocrinology Reason for Consultation Hypercalcemia, T2DM Requesting Provider: NOLA VIDAL MD Date/Time of Note DATE: 10/15/18 TIME: 11:06 24 HR Interval Summary Subjective hx not possible: pt non-verbal, pt critical status Exam/Review of Systems Exam Vitals VS - Last 72 Hours, by Label Date Temp Pulse Resp B/P (MAP) Pulse Ox O2 O2 Flow FiO2 Time Delivery Rate 10/15/18 109 22 108/78 96 Mechanical 10:30 (88) Ventilator 10/15/18 109 24 107/76 94 Mechanical 10:00 (86) Ventilator 10/15/18 108 24 109/79 94 Mechanical 09:30 (89) Ventilator 10/15/18 115 29 135/93 99 Mechanical 09:00 (107) Ventilator 10/15/18 117 25 142/82 97 Mechanical 08:30 (102) Ventilator 10/15/18 100 08:00 10/15/18 99.5 115 26 137/100 96 Mechanical 08:00 (112) Ventilator 10/15/18 122 34 151/98 86 Mechanical 07:30 (115) Ventilator 10/15/18 125 28 141/98 89 Mechanical 07:00 (112) Ventilator 10/15/18 114 32 124/86 90 Mechanical 06:00 (99) Ventilator Trach Collar 10/15/18 110 31 99 70 05:14 10/15/18 111 28 123/84 88 Mechanical 05:00 (97) Ventilator Trach Collar 10/15/18 98.6 105 31 129/83 92 Mechanical 04:00 (98) Ventilator Trach Collar 10/15/18 105 04:00 10/15/18 110 29 99 70 03:50 10/15/18 102 28 122/88 92 Mechanical 03:00 (99) Ventilator Trach Collar 10/15/18 106 32 129/89 90 Mechanical 02:00 (102) Ventilator Trach Collar 10/15/18 111 34 99 70 01:40 10/15/18 65 01:17 10/15/18 99 23 106/72 98 Mechanical 01:00 (83) Ventilator Trach Collar 10/15/18 112 00:00 10/15/18 98.5 113 29 124/85 93 Mechanical 00:00 (98) Ventilator Trach Collar 10/14/18 112 27 94 80 23:44 10/14/18 108 31 119/73 96 Mechanical 23:00 (88) Ventilator Trach Collar 10/14/18 99 27 111/72 97 Mechanical 22:00 (85) Ventilator Trach Collar 10/14/18 112 28 93 80 21:52 10/14/18 95 25 96/72 (80) 100 Mechanical 21:00 Ventilator Trach Collar 10/14/18 85 20:00 10/14/18 98.8 96 22 98/70 (79) Mechanical 20:00 Ventilator Trach Collar 10/14/18 96 20:00 10/14/18 112 28 93 85 19:40 10/14/18 93 22 86/63 (71) 97 Mechanical 19:00 Ventilator 10/14/18 105 31 96/68 (77) 97 Mechanical 18:00 Ventilator 10/14/18 95 20 98 85 17:15 10/14/18 95 21 87/54 (65) 98 Mechanical 17:00 Ventilator 10/14/18 95 16:00 10/14/18 98.8 101 27 100/74 98 Mechanical 16:00 (83) Ventilator 10/14/18 100 16:00 10/14/18 100 30 99 85 15:20 10/14/18 97 25 108/76 97 Mechanical 15:00 (87) Ventilator 10/14/18 102 20 121/74 95 Mechanical 14:00 (90) Ventilator 10/14/18 94 23 95 85 13:10 10/14/18 94 22 92/62 (72) 95 Mechanical 13:00 Ventilator 10/14/18 98.7 92 20 85/65 (72) 96 Mechanical 12:00 Ventilator 10/14/18 91 12:00 10/14/18 74 24 94 85 11:05 10/14/18 95 22 100/62 95 Mechanical 11:00 (75) Ventilator 10/14/18 99 21 117/78 97 Mechanical 10:00 (91) Ventilator 10/14/18 101 30 98 85 09:15 10/14/18 102 20 130/80 96 Mechanical 09:00 (97) Ventilator 10/14/18 105 08:00 10/14/18 85 08:00 10/14/18 98.5 105 25 123/82 91 Mechanical 08:00 (96) Ventilator 10/14/18 107 20 92 70 07:35 10/14/18 100 28 126/103 95 Mechanical 07:00 (111) Ventilator 10/14/18 96 26 124/76 96 Mechanical 06:00 (92) Ventilator Trach Collar 10/14/18 96 32 100 70 05:43 10/14/18 100 28 130/90 87 Mechanical 05:00 (103) Ventilator Trach Collar 10/14/18 98.8 93 28 92/59 (70) 97 Mechanical 04:00 Ventilator Trach Collar 10/14/18 93 04:00 10/14/18 97 23 98 70 03:13 10/14/18 94 23 92/59 (70) 97 Mechanical 03:00 Ventilator Trach Collar 10/14/18 98.8 101 25 104/80 95 Mechanical 02:00 (88) Ventilator Trach Collar 10/14/18 96 27 100 70 01:25 10/14/18 95 22 105/67 97 Mechanical 01:00 (80) Ventilator Trach Collar 10/14/18 99.2 93 22 95/59 (71) 97 Mechanical 00:00 Ventilator 10/14/18 93 00:00 10/13/18 94 26 98 70 23:38 10/13/18 92 21 91/64 (73) 99 Mechanical 23:00 Ventilator Trach Collar 10/13/18 103 21 129/85 95 Mechanical 22:00 (100) Ventilator Trach Collar 10/13/18 110 38 95/70 (78) 96 Mechanical 21:00 Ventilator Trach Collar 10/13/18 70 20:00 10/13/18 99.9 117 28 125/85 96 Mechanical 20:00 (98) Ventilator Trach Collar 10/13/18 117 20:00 10/13/18 103 26 100 70 19:50 10/13/18 116 34 92 70 19:45 10/13/18 121 28 125/87 86 Mechanical 19:00 (100) Ventilator Trach Collar 10/13/18 110 22 106/83 94 Mechanical 18:00 (91) Ventilator 10/13/18 106 31 94 70 17:30 10/13/18 96 22 102/74 96 Mechanical 17:00 (83) Ventilator 10/13/18 99 16:00 10/13/18 99.1 98 22 93/71 (78) 96 Mechanical 16:00 Ventilator 10/13/18 70 16:00 10/13/18 99 23 99 70 15:23 10/13/18 96 21 93/68 (76) 99 Mechanical 15:00 Ventilator 10/13/18 104 25 102/77 94 Mechanical 14:00 (85) Ventilator 10/13/18 99 37 95 80 13:31 10/13/18 95 26 104/79 96 Mechanical 13:00 (87) Ventilator 10/13/18 98.9 94 24 86/70 (75) 97 Mechanical 12:00 Ventilator 10/13/18 94 12:00 10/13/18 80 11:30 10/13/18 108 32 100 90 11:18 10/13/18 102 22 121/77 100 Mechanical 11:00 (92) Ventilator 10/13/18 99 24 90/66 (74) 95 Mechanical 10:00 Ventilator 10/13/18 105 24 97 70 09:29 10/13/18 110 29 108/79 98 Mechanical 09:00 (89) Ventilator 10/13/18 80 08:00 10/13/18 109 08:00 10/13/18 98.3 109 23 110/81 97 Mechanical 08:00 (91) Ventilator 10/13/18 108 35 97 80 07:50 10/13/18 104 24 110/81 100 Mechanical 07:00 (91) Ventilator 10/13/18 93 21 100/74 98 Mechanical 06:00 (83) Ventilator 10/13/18 95 25 96 60 05:00 10/13/18 94 27 120/80 95 Mechanical 05:00 (93) Ventilator 10/13/18 97.8 95 22 96/74 (81) 95 Mechanical 04:00 Ventilator 10/13/18 93 04:00 10/13/18 94 26 100 60 03:10 10/13/18 92 28 105/81 96 Mechanical 03:00 (89) Ventilator 10/13/18 92 27 101/75 95 Mechanical 02:00 (84) Ventilator 10/13/18 90 28 98 60 01:40 10/13/18 87 18 91/69 (76) 98 Mechanical 01:00 Ventilator 10/13/18 98.0 91 22 99/76 (84) 94 Mechanical 00:00 Ventilator 10/13/18 91 00:00 10/12/18 90 21 95 60 23:20 10/12/18 91 23 89/64 (72) 98 Mechanical 23:00 Ventilator 10/12/18 91 22 89/66 (74) 97 Mechanical 22:00 Ventilator 10/12/18 94 24 96 60 21:10 10/12/18 92 19 103/77 97 Mechanical 21:00 (86) Ventilator 10/12/18 87 17 88/64 (72) 98 Mechanical 20:00 Ventilator 10/12/18 60 20:00 10/12/18 87 20:00 10/12/18 86 20 98 60 19:35 10/12/18 97.9 87 18 89/70 (76) 100 Mechanical 19:00 Ventilator 10/12/18 90 18 114/86 100 Mechanical 18:00 (95) Ventilator 10/12/18 92 25 101/79 97 Mechanical 17:00 (86) Ventilator 10/12/18 94 20 97 60 16:48 10/12/18 98.2 92 25 111/79 97 Mechanical 16:00 (90) Ventilator 10/12/18 88 16:00 10/12/18 92 20 92 60 15:12 10/12/18 94 34 110/80 96 Mechanical 15:00 (90) Ventilator 10/12/18 94 34 109/80 96 Mechanical 14:00 (90) Ventilator 10/12/18 91 20 96 60 13:45 10/12/18 93 25 97/73 (81) 95 Mechanical 13:00 Ventilator 10/12/18 93 12:00 10/12/18 97.8 93 24 107/71 97 Mechanical 12:00 (83) Ventilator 10/12/18 60 11:24 Vital Signs Date Temp Pulse Resp B/P (MAP) Pulse Ox O2 O2 Flow FiO2 Time Delivery Rate 10/15/18 109 22 108/78 96 Mechanical 10:30 (88) Ventilator 10/15/18 100 08:00 10/15/18 99.5 08:00 Intake and Output 10/14/18 10/14/18 10/15/18 1414:59 22:59 06:59 IntakeIntake Total 940 ml 940 ml 940 ml OutputOutput Total 550 ml 440 ml 730 ml BalanceBalance 390 ml 500 ml 210 ml Constitutional: non-verbal, frail; No alert, No oriented Neck: other ((+) trach) Respiratory: clear to auscultation, normal air movement Cardiovascular: regular rate and rhythm, nl pulses; No edema, No murmurs/extra sounds, No rub Gastrointestinal: soft, nl liver, spleen, non-tender, bowel sounds; No mass, No rebound or guarding Musculoskeletal: nl extremities to inspection Extremities: normal pulses; No cyanosis, No clubbing, No edema Neurological: unresponsive Additional Comments Bedside Glucose - 72 Hours Test 10/12/18 14:39 10/12/18 19:58 10/13/18 03:08 10/13/18 08:48 Bedside 119 95 101 110 Glucose mg/dL (70-220) mg/dL (70-220) mg/dL (70-220) mg/dL (70-220) Test 10/13/18 13:44 10/13/18 20:02 10/14/18 01:53 10/14/18 13:24 Bedside 106 106 135 120 Glucose mg/dL (70-220) mg/dL (70-220) mg/dL (70-220) mg/dL (70-220) Test 10/14/18 20:46 10/15/18 01:32 10/15/18 08:44 Bedside 181 150 129 Glucose mg/dL (70-220) mg/dL (70-220) mg/dL (70-220) Results Result Diagram: 10/14/18 0420 10/15/18 0530 Results 24hrs Laboratory Tests Test 10/14/18 13:24 10/14/18 20:46 10/15/18 01:32 10/15/18 05:30 Bedside Glucose 120 181 150 Sodium Level 141 Potassium Level 4.1 Chloride Level 101 Carbon Dioxide 32 H Level Anion Gap 8 Blood Urea 15 Nitrogen Creatinine 0.62 Est Glomerular > 60 Filtrat Rate mL/min Glucose Level 130 Calcium Level 7.6 L Phosphorus Level 4.4 Magnesium Level 1.8 Total Bilirubin 0.0 L Direct Bilirubin 0.00 Indirect Bilirubin 0.0 Aspartate Amino 34 Transf (AST/SGOT) Alanine 28 Aminotransferase ( ALT/SGPT) Alkaline 237 H Phosphatase Total Protein 6.3 Albumin 3.1 L Globulin 3.20 Albumin/Globulin 0.96 Ratio Test 10/15/18 07:00 10/15/18 08:44 Blood Gas Specimen Blood arterial Source Arterial Blood 10/15/2018 9:30:16 Date Drawn AM Arterial Blood pH 7.391 (Temp corrected) Arterial Blood 51.1 H pCO2 (Temp correct) Arterial Blood pO2 134.2 H (Temp corrected) Arterial Blood 30.3 H HCO3 Arterial Blood 4.5 H Base Excess Arterial Blood 98.2 H Oxygen Saturation [place] Test ACCEPTAB Arterial Blood Gas Right Radial Puncture Site Arterial 0.4 Blood Carboxyhemog lobin Arterial Blood 0.2 Methemoglobin Blood Gas A-a O2 527.7 H Differential Oxyhemoglobin 97.6 Percent Blood Gas 37.0 Temperature Blood Gas 20.0 Respiration Rate Blood Gas Actual 23 Respiration Rate Blood Gas Modality VENT - PC FiO2 100.0 Blood Gas 0.70 Inspiratory Time Blood Gas Tidal 428.0 Volume Blood Gas Low PEEP 5.0 Setting Blood Gas 28.0 Inspiratory Pressure Blood Gas Notified Lauren MILLER RCP Whom Blood Gas Notified 10/15/2018 9:52:01 Time AM Bedside Glucose 129 Medications Medication Current Medications Acetaminophen (Tylenol Liquid) 650 mg Q4H PRN GTB MILD PAIN(1-3)OR ELEVATED TEMP Last administered on 10/10/18at 03:10; Admin Dose 650 MG; Start 10/09/18 at 14:00 Al Hydrox/Mg Hydrox/Simethicone (Mag-Al Plus) 15 ml Q6H PRN PO GASTROINTESTINAL UPSET; Start 10/09/18 at 14:00 Eye Lubricant (Artificial Tears Oph) 1 drop Q6H PRN BOTH EYES DRY EYES; Start 10/09/18 at 14:00 Bisacodyl (Dulcolax Supp) 10 mg DAILY PRN ME CONSTIPATION; Start 10/09/18 at 14:00 Clonidine (Catapres) 0.1 mg DAILY PRN GTB ELEVATED BLOOD PRESSURE; Start 10/09/18 at 14:00 Diltiazem HCl (Cardizem Iv) 5 mg Q4 PRN IV ELEVATED HEART RATE Last administered on 10/15/18at 09:00; Admin Dose 5 MG; Start 10/09/18 at 14:00 Diphenhydramine HCl (Benadryl Liquid Cup) 25 mg Q6 PRN GTB ITCHING; Start 10/09/18 at 14:00 Duloxetine HCl (Cymbalta) 30 mg DAILY PO Last administered on 10/15/18 08:46; Admin Dose 30 MG; Start 10/10/18 at 09:00 Epoetin Arpan (Epogen (Esrd)) 10,000 units TuSa@1300 SC Last administered on 10/11/18 13:54; Admin Dose 10,000 UNITS; Start 10/11/18 at 13:00 Gabapentin (Neurontin Liquid) 400 mg Q8 GTB Last administered on 10/15/18 05:18; Admin Dose 400 MG; Start 10/09/18 at 15:30 Hydralazine HCl (Apresoline) 10 mg Q4H PRN IV ELEVATED BLOOD PRESSURE; Start 10/09/18 at 14:00 Hydromorphone HCl (Dilaudid) 4 mg Q4H PRN PO MODERATE PAIN LEVEL 7-10 Last administered on 10/15/18 08:36; Admin Dose 4 MG; Start 10/09/18 at 14:00 Hydroxychloroquine Sulfate (Plaquenil) 200 mg BID PO Last administered on 10/15/18 08:46; Admin Dose 200 MG; Start 10/09/18 at 21:00 Diagnostic Test (Pha) (Accu-Chek) 1 ea 02 XX Last administered on 10/15/18 01:32; Admin Dose 1 EA; Start 10/10/18 at 02:00 Insulin Aspart (Novolog Insulin Pen) NOVOLOG *CUSTOM* ALGORITHM Q6H SC Last administered on 10/14/18 20:51; Admin Dose 1 UNIT; Start 10/09/18 at 14:00 Lactobacillus Acidophilus (Florajen3 Capsule) 1 each BID GTB Last administered on 10/15/18 08:48; Admin Dose 1 EACH; Start 10/09/18 at 21:00 Lansoprazole (Prevacid) 30 mg BID@06,18 GTB Last administered on 10/15/18 05:18; Admin Dose 30 MG; Start 10/09/18 at 18:00 Levetiracetam (Keppra Liquid) 500 mg BID GTB Last administered on 10/15/18 08:46; Admin Dose 500 MG; Start 10/09/18 at 21:00 Magnesium Oxide (Mag-Ox 400) 400 mg BID GTB Last administered on 10/15/18 08:47; Admin Dose 400 MG; Start 10/09/18 at 21:00 Metoclopramide HCl (Reglan) 10 mg TID IV Last administered on 10/15/18at 08:48; Admin Dose 10 MG; Start 10/09/18 at 21:00 Miconazole Nitrate (Miconazole 2% Cr) 1 applic BID TOP Last administered on 10/15/18at 08:48; Admin Dose 1 APPLIC; Start 10/09/18 at 21:00 Miconazole Nitrate (Miconazole 2% Cr) 1 applic Q12 PRN TOP rash; Start 10/09/18 at 14:00 Ondansetron HCl (Zofran Inj) 4 mg Q4H PRN IV NAUSEA AND/OR VOMITING Last administered on 10/14/18at 23:18; Admin Dose 4 MG; Start 10/09/18 at 14:00 Polyethylene Glycol (Miralax) 17 gm DAILY PRN GTB CONSTIPATION; Start 10/09/18 at 14:00 Senna (Senokot) 2 tab Q8 PRN PO CONSTIPATION; Start 10/09/18 at 14:00 Trimethoprim/ Sulfamethoxazole (Bactrim Susp) 40 ml DAILY GTB Last administered on 10/15/18at 08:46; Admin Dose 40 ML; Start 10/10/18 at 09:00 Zolpidem Tartrate (Ambien) 5 mg HS PRN PO INSOMNIA Last administered on 10/15/18at 00:09; Admin Dose 5 MG; Start 10/09/18 at 14:00 Miscellaneous Information 1 ea NOTE XX ; Start 10/09/18 at 15:00 Glucose (Glutose) 15 gm Q15M PRN PO DECREASED GLUCOSE; Start 10/09/18 at 15:00 Glucose (Glutose) 22.5 gm Q15M PRN PO DECREASED GLUCOSE; Start 10/09/18 at 15:00 Dextrose (D50w Syringe) 25 ml Q15M PRN IV DECREASED GLUCOSE; Start 10/09/18 at 15:00 Dextrose (D50w Syringe) 50 ml Q15M PRN IV DECREASED GLUCOSE; Start 10/09/18 at 15:00 Glucagon (Glucagen) 1 mg Q15M PRN IM DECREASED GLUCOSE; Start 10/09/18 at 15:00 Glucose (Glutose) 15 gm Q15M PRN BUCCAL DECREASED GLUCOSE; Start 10/09/18 at 15:00 Sodium Chloride 500 ml @ 500 mls/hr Q1H PRN IV BLOOD PRESSURE SUPPORT Last administered on 10/10/18 07:59; Admin Dose 500 MLS/HR; Start 10/09/18 at 19:30 Piperacillin Sod/ Tazobactam Sod 100 ml @ 200 mls/hr Q6 IVPB Last administered on 10/15/18 05:18; Admin Dose 200 MLS/HR; Start 10/09/18 at 20:00 Albuterol (Ventolin Hfa) 4 puff Q6H RESP THERAPY INH Last administered on 10/15/18 08:24; Admin Dose 4 PUFF; Start 10/10/18 at 02:00 Ipratropium [place] (Atrovent Hfa) 4 puff Q6H RESP THERAPY INH Last administered on 10/15/18 08:23; Admin Dose 4 PUFF; Start 10/10/18 at 02:00 Methylprednisolone Sodium Succinate (Solu-Medrol) 40 mg Q8 IV Last administered on 10/15/18 05:18; Admin Dose 40 MG; Start 10/14/18 at 14:00 Quetiapine Fumarate (Seroquel) 50 mg BID GTB Last administered on 10/15/18 08:46; Admin Dose 50 MG; Start 10/14/18 at 13:30 Lorazepam (Ativan) 1 mg Q4H PRN GTB AGITATION/ANXIETY Last administered on 10/15/18 08:06; Admin Dose 1 MG; Start 10/14/18 at 13:00 Lisinopril (Zestril) 2.5 mg DAILY PO Last administered on 10/15/18 08:47; Admin Dose 2.5 MG; Start 10/15/18 at 09:00 Carvedilol (Coreg) 3.125 mg BID PO Last administered on 10/14/18 23:47; Admin Dose 3.125 MG; Start 10/14/18 at 21:00 Hydromorphone HCl (Dilaudid) 2 mg Q4H PRN PO PAIN LEVEL 4-6; Start 10/14/18 at 17:30 Fentanyl (Duragesic 50 Mcg/Hr Patch) 1 patch Q72H TRANSDERM Last administered on 10/14/18 20:18; Admin Dose 1 PATCH; Start 10/14/18 at 18:30 Bumetanide 3 mg/ Dextrose 30 ml @ 10 mls/hr Q3H ONCE IV Last administered on 10/15/18at 10:04; Admin Dose 10 MLS/HR; Start 10/15/18 at 09:00; Stop 10/15/18 at 11:59 VALENTE CHAVEZ MD Oct 15, 2018 11:11
--- NOTE | 2018-10-15 11:43 | CONS ---
Consult Date/Type/Reason Admit Date/Time Oct 09, 2018 at 12:16 Initial Consult Date 10/12/18 Type of Consultation: Pulm/CC Requesting Provider: NOLA VIDAL MD Date/Time of Note DATE: 10/15/18 TIME: 11:41 Subjective On the vent. Now on 90% FiO2. Objective Vitals Vital Signs Date Temp Pulse Resp B/P (MAP) Pulse Ox O2 O2 Flow FiO2 Time Delivery Rate 10/15/18 109 22 108/78 96 Mechanical 10:30 (88) Ventilator 10/15/18 100 08:00 10/15/18 99.5 08:00 Intake and Output 10/14/18 10/14/18 10/15/18 1515:00 23:00 07:00 IntakeIntake Total 940 ml 940 ml 1040 ml OutputOutput Total 550 ml 520 ml 775 ml BalanceBalance 390 ml 420 ml 265 ml Exam HEENT: Neck supple; no JVD; no LAD; + trach CVS: RRR, S1 and S2 CHEST: Coarse BS ABD: Soft, NT, + BS EXT: No c/c; + edema Results/Medications Result Diagram: 10/14/18 0420 10/15/18 0530 Results 24 hrs Laboratory Tests Test 10/14/18 13:24 10/14/18 20:46 10/15/18 01:32 10/15/18 05:30 Bedside Glucose 120 181 150 Sodium Level 141 Potassium Level 4.1 Chloride Level 101 Carbon Dioxide 32 H Level Anion Gap 8 Blood Urea 15 Nitrogen Creatinine 0.62 Est Glomerular > 60 Filtrat Rate mL/min Glucose Level 130 Calcium Level 7.6 L Phosphorus Level 4.4 Magnesium Level 1.8 Total Bilirubin 0.0 L Direct Bilirubin 0.00 Indirect Bilirubin 0.0 Aspartate Amino 34 Transf (AST/SGOT) Alanine 28 Aminotransferase ( ALT/SGPT) Alkaline 237 H Phosphatase Total Protein 6.3 Albumin 3.1 L Globulin 3.20 Albumin/Globulin 0.96 Ratio Test 10/15/18 07:00 10/15/18 08:44 Blood Gas Specimen Blood arterial Source Arterial Blood 10/15/2018 9:30:16 Date Drawn AM Arterial Blood pH 7.391 (Temp corrected) Arterial Blood 51.1 H pCO2 (Temp correct) Arterial Blood pO2 134.2 H (Temp corrected) Arterial Blood 30.3 H HCO3 Arterial Blood 4.5 H Base Excess Arterial Blood 98.2 H Oxygen Saturation Chandler Test ACCEPTAB Arterial Blood Gas Right Radial Puncture Site Arterial 0.4 Blood Carboxyhemog lobin Arterial Blood 0.2 Methemoglobin Blood Gas A-a O2 527.7 H Differential Oxyhemoglobin 97.6 Percent Blood Gas 37.0 Temperature Blood Gas 20.0 Respiration Rate Blood Gas Actual 23 Respiration Rate Blood Gas Modality VENT - PC FiO2 100.0 Blood Gas 0.70 Inspiratory Time Blood Gas Tidal 428.0 Volume Blood Gas Low PEEP 5.0 Setting Blood Gas 28.0 Inspiratory Pressure Blood Gas Notified Lauren MILLER 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 Whom Blood Gas Notified 10/15/2018 9:52:01 Time AM Bedside Glucose 129 Medications Current Medications Acetaminophen (Tylenol Liquid) 650 mg Q4H PRN GTB MILD PAIN(1-3)OR ELEVATED TEMP Last administered on 10/10/18 03:10; Admin Dose 650 MG; Start 10/09/18 at 14:00 Al Hydrox/Mg Hydrox/Simethicone (Mag-Al Plus) 15 ml Q6H PRN PO GASTROINTESTINAL UPSET; Start 10/09/18 at 14:00 Eye Lubricant (Artificial Tears Oph) 1 drop Q6H PRN BOTH EYES DRY EYES; Start 10/09/18 at 14:00 Bisacodyl (Dulcolax Supp) 10 mg DAILY PRN [place] CONSTIPATION; Start 10/09/18 at 14:00 Clonidine (Catapres) 0.1 mg DAILY PRN GTB ELEVATED BLOOD PRESSURE; Start 10/09/18 at 14:00 Diltiazem HCl (Cardizem Iv) 5 mg Q4 PRN IV ELEVATED HEART RATE Last administered on 10/15/18 09:00; Admin Dose 5 MG; Start 10/09/18 at 14:00 Diphenhydramine HCl (Benadryl Liquid Cup) 25 mg Q6 PRN GTB ITCHING; Start 10/09/18 at 14:00 Duloxetine HCl (Cymbalta) 30 mg DAILY PO Last administered on 10/15/18at 08:46; Admin Dose 30 MG; Start 10/10/18 at 09:00 Epoetin Arpan (Epogen (Esrd)) 10,000 units TuSa@1300 SC Last administered on 10/11/18at 13:54; Admin Dose 10,000 UNITS; Start 10/11/18 at 13:00 Gabapentin (Neurontin Liquid) 400 mg Q8 GTB Last administered on 10/15/18 05:18; Admin Dose 400 MG; Start 10/09/18 at 15:30 Hydralazine HCl (Apresoline) 10 mg Q4H PRN IV ELEVATED BLOOD PRESSURE; Start 10/09/18 at 14:00 Hydromorphone HCl (Dilaudid) 4 mg Q4H PRN PO MODERATE PAIN LEVEL 7-10 Last administered on 10/15/18 08:36; Admin Dose 4 MG; Start 10/09/18 at 14:00 Hydroxychloroquine Sulfate (Plaquenil) 200 mg BID PO Last administered on 10/15/18 08:46; Admin Dose 200 MG; Start 10/09/18 at 21:00 Diagnostic Test (Pha) (Accu-Chek) 1 ea 02 XX Last administered on 10/15/18 01:32; Admin Dose 1 EA; Start 10/10/18 at 02:00 Insulin Aspart (Novolog Insulin Pen) NOVOLOG *CUSTOM* ALGORITHM Q6H SC Last administered on 10/14/18 20:51; Admin Dose 1 UNIT; Start 10/09/18 at 14:00 Lactobacillus Acidophilus (Florajen3 Capsule) 1 each BID GTB Last administered on 10/15/18 08:48; Admin Dose 1 EACH; Start 10/09/18 at 21:00 Lansoprazole (Prevacid) 30 mg BID@06,18 GTB Last administered on 10/15/18 05:18; Admin Dose 30 MG; Start 10/09/18 at 18:00 Levetiracetam (Keppra Liquid) 500 mg BID GTB Last administered on 10/15/18 08:46; Admin Dose 500 MG; Start 10/09/18 at 21:00 Magnesium Oxide (Mag-Ox 400) 400 mg BID GTB Last administered on 10/15/18 08:47; Admin Dose 400 MG; Start 10/09/18 at 21:00 Metoclopramide HCl (Reglan) 10 mg TID IV Last administered on 10/15/18 08:48; Admin Dose 10 MG; Start 10/09/18 at 21:00 Miconazole Nitrate (Miconazole 2% Cr) 1 applic BID TOP Last administered on 3/2/19at 08:48; Admin Dose 1 APPLIC; Start 10/09/18 at 21:00 Miconazole Nitrate (Miconazole 2% Cr) 1 applic Q12 PRN TOP rash; Start 10/09/18 at 14:00 Ondansetron HCl (Zofran Inj) 4 mg Q4H PRN IV NAUSEA AND/OR VOMITING Last administered on 10/14/18at 23:18; Admin Dose 4 MG; Start 10/09/18 at 14:00 Polyethylene Glycol (Miralax) 17 gm DAILY PRN GTB CONSTIPATION; Start 10/09/18 at 14:00 Senna (Senokot) 2 tab Q8 PRN PO CONSTIPATION; Start 10/09/18 at 14:00 Trimethoprim/ Sulfamethoxazole (Bactrim Susp) 40 ml DAILY GTB Last administered on 10/15/18at 08:46; Admin Dose 40 ML; Start 10/10/18 at 09:00 Zolpidem Tartrate (Ambien) 5 mg HS PRN PO INSOMNIA Last administered on 10/15/18at 00:09; Admin Dose 5 MG; Start 10/09/18 at 14:00 Miscellaneous Information 1 ea NOTE XX ; Start 10/09/18 at 15:00 Glucose (Glutose) 15 gm Q15M PRN PO DECREASED GLUCOSE; Start 10/09/18 at 15:00 Glucose (Glutose) 22.5 gm Q15M PRN PO DECREASED GLUCOSE; Start 10/09/18 at 15:00 Dextrose (D50w Syringe) 25 ml Q15M PRN IV DECREASED GLUCOSE; Start 10/09/18 at 15:00 Dextrose (D50w Syringe) 50 ml Q15M PRN IV DECREASED GLUCOSE; Start 10/09/18 at 15:00 Glucagon (Glucagen) 1 mg Q15M PRN IM DECREASED GLUCOSE; Start 10/09/18 at 15:00 Glucose (Glutose) 15 gm Q15M PRN BUCCAL DECREASED GLUCOSE; Start 10/09/18 at 15:00 Sodium Chloride 500 ml @ 500 mls/hr Q1H PRN IV BLOOD PRESSURE SUPPORT Last administered on 10/10/18at 07:59; Admin Dose 500 MLS/HR; Start 10/09/18 at 19:30 Piperacillin Sod/ Tazobactam Sod 100 ml @ 200 mls/hr Q6 IVPB Last administered on 10/15/18 05:18; Admin Dose 200 MLS/HR; Start 10/09/18 at 20:00 Albuterol (Ventolin Hfa) 4 puff Q6H RESP THERAPY INH Last administered on 10/15/18 08:24; Admin Dose 4 PUFF; Start 10/10/18 at 02:00 Ipratropium Vera (Atrovent Hfa) 4 puff Q6H RESP THERAPY INH Last administered on 10/15/18 08:23; Admin Dose 4 PUFF; Start 10/10/18 at 02:00 Methylprednisolone Sodium Succinate (Solu-Medrol) 40 mg Q8 IV Last administered on 10/15/18 05:18; Admin Dose 40 MG; Start 10/14/18 at 14:00 Quetiapine Fumarate (Seroquel) 50 mg BID GTB Last administered on 10/15/18 08:46; Admin Dose 50 MG; Start 10/14/18 at 13:30 Lorazepam (Ativan) 1 mg Q4H PRN GTB AGITATION/ANXIETY Last administered on 10/15/18 08:06; Admin Dose 1 MG; Start 10/14/18 at 13:00 Lisinopril (Zestril) 2.5 mg DAILY PO Last administered on 10/15/18 08:47; Admin Dose 2.5 MG; Start 10/15/18 at 09:00 Carvedilol (Coreg) 3.125 mg BID PO Last administered on 10/14/18 23:47; Admin Dose 3.125 MG; Start 10/14/18 at 21:00 Hydromorphone HCl (Dilaudid) 2 mg Q4H PRN PO PAIN LEVEL 4-6; Start 10/14/18 at 17:30 Fentanyl (Duragesic 50 Mcg/Hr Patch) 1 patch Q72H TRANSDERM Last administered on 10/14/18 20:18; Admin Dose 1 PATCH; Start 10/14/18 at 18:30 Bumetanide 3 mg/ Dextrose 30 ml @ 10 mls/hr Q3H ONCE IV Last administered on 10/15/18 10:04; Admin Dose 10 MLS/HR; Start 10/15/18 at 09:00; Stop 10/15/18 at 11:59 Assessment/Plan Assessment/Plan (Daily) IMP: 1. Acute on chronic hypoxemic respiratory failure with underlying acute respiratory distress syndrome. 2. History of HSV esophagitis. 3. Chronic sepsis. 4. History of rheumatoid arthritis. 5. C-spine disease with functional quadriplegia. 6. Dysphagia with G-tube. PLAN: 1. Continue bronchodilators. 2. Pressure control ventilation with delta P of 20 cm H20 and PEEP 10 cm H20 3. Obtain ABG 4. Bronchodilator treatment. 5. Deep vein thrombosis and gastrointestinal prophylaxis. 6. DC prednisone and hydrocortisone switch to Solu-Medrol. 7. Non-con CT chest Critical care 40 minutes. YOLETTE REYNOLDS MD Oct 15, 2018 11:43
--- NOTE | 2018-10-15 12:34 | CONS ---
Consult Date/Type/Reason Admit Date/Time Oct 09, 2018 at 12:16 Initial Consult Date 10/09/18 Type of Consultation: Pulm/CC Requesting Provider: NOLA VIADL MD Date/Time of Note DATE: 10/15/18 TIME: 12:32 Subjective NO acute change - pt comfortable -reports pain in joints - sinus tachy - responding to pain meds overall. ROS: No fever, no chills, no nausea, no vomiting, no diarrhea/constipation No recent weight changes No chest pain, no PND, no orthopnea - chronic SOB No dizziness, blurred vision No thirst, no heat or cold intolerance Objective Vitals Vital Signs Date Temp Pulse Resp B/P (MAP) Pulse Ox O2 O2 Flow FiO2 Time Delivery Rate 10/15/18 80 11:35 10/15/18 110 26 95 11:10 10/15/18 108/78 Mechanical 10:30 (88) Ventilator 10/15/18 99.5 08:00 Intake and Output 10/14/18 10/14/18 10/15/18 1515:00 23:00 07:00 IntakeIntake Total 940 ml 940 ml 1040 ml OutputOutput Total 550 ml 520 ml 775 ml BalanceBalance 390 ml 420 ml 265 ml Exam General: WN/WD/NAD, AOx 2-3 HEENT: Unicetric/atraumatic/EOMI (follows commands) NECK: trach Lymph: no lymphadenopathy HEART: regular with no S3, II/ systolic murmur at apex LUNGS: Coarse sounds ABD: soft, NT, ND, +BS : Intact Neuro: non focal SKIN: chronic changes EXT: trace edema Results/Medications Result Diagram: 10/14/18 0420 10/15/18 0530 Results 24 hrs Laboratory Tests Test 10/14/18 13:24 10/14/18 20:46 10/15/18 01:32 10/15/18 05:30 Bedside Glucose 120 181 150 Sodium Level 141 Potassium Level 4.1 Chloride Level 101 Carbon Dioxide 32 H Level Anion Gap 8 Blood Urea 15 Nitrogen Creatinine 0.62 Est Glomerular > 60 Filtrat Rate mL/min Glucose Level 130 Calcium Level 7.6 L Phosphorus Level 4.4 Magnesium Level 1.8 Total Bilirubin 0.0 L Direct Bilirubin 0.00 Indirect Bilirubin 0.0 Aspartate Amino 34 Transf (AST/SGOT) Alanine 28 Aminotransferase ( ALT/SGPT) Alkaline 237 H Phosphatase Total Protein 6.3 Albumin 3.1 L Globulin 3.20 Albumin/Globulin 0.96 Ratio Test 10/15/18 07:00 10/15/18 08:44 Blood Gas Specimen Blood arterial Source Arterial Blood 10/15/2018 9:30:16 Date Drawn AM Arterial Blood pH 7.391 (Temp corrected) Arterial Blood 51.1 H pCO2 (Temp correct) Arterial Blood pO2 134.2 H (Temp corrected) Arterial Blood 30.3 H HCO3 Arterial Blood 4.5 H Base Excess Arterial Blood 98.2 H Oxygen Saturation Chandler Test ACCEPTAB Arterial Blood Gas Right Radial Puncture Site Arterial 0.4 Blood Carboxyhemog lobin Arterial Blood 0.2 Methemoglobin Blood Gas A-a O2 527.7 H Differential Oxyhemoglobin 97.6 Percent Blood Gas 37.0 Temperature Blood Gas 20.0 Respiration Rate Blood Gas Actual 23 Respiration Rate Blood Gas Modality VENT - PC FiO2 100.0 Blood Gas 0.70 Inspiratory Time Blood Gas Tidal 428.0 Volume Blood Gas Low PEEP 5.0 Setting Blood Gas 28.0 Inspiratory Pressure Blood Gas Notified Lauren MILLER RCP Whom Blood Gas Notified 10/15/2018 9:52:01 Time AM Bedside Glucose 129 Medications Current Medications Acetaminophen (Tylenol Liquid) 650 mg Q4H PRN GTB MILD PAIN(1-3)OR ELEVATED TEMP Last administered on 10/10/18at 03:10; Admin Dose 650 MG; Start 10/09/18 at 14:00 Al Hydrox/Mg Hydrox/Simethicone (Mag-Al Plus) 15 ml Q6H PRN PO GASTROINTESTINAL UPSET; Start 10/09/18 at 14:00 Eye Lubricant (Artificial Tears Oph) 1 drop Q6H PRN BOTH EYES DRY EYES; Start 10/09/18 at 14:00 Bisacodyl (Dulcolax Supp) 10 mg DAILY PRN [place] CONSTIPATION; Start 10/09/18 at 14 :00 Clonidine (Catapres) 0.1 mg DAILY PRN GTB ELEVATED BLOOD PRESSURE; Start 10/09/18 at 14:00 Diltiazem HCl (Cardizem Iv) 5 mg Q4 PRN IV ELEVATED HEART RATE Last administered on 10/15/18at 09:00; Admin Dose 5 MG; Start 10/09/18 at 14:00 Diphenhydramine HCl (Benadryl Liquid Cup) 25 mg Q6 PRN GTB ITCHING; Start 10/09/18 at 14:00 Duloxetine HCl (Cymbalta) 30 mg DAILY PO Last administered on 10/15/18 08:46; Admin Dose 30 MG; Start 10/10/18 at 09:00 Epoetin Arpan (Epogen (Esrd)) 10,000 units TuSa@1300 SC Last administered on 10/11/18 13:54; Admin Dose 10,000 UNITS; Start 10/11/18 at 13:00 Gabapentin (Neurontin Liquid) 400 mg Q8 GTB Last administered on 10/15/18 05:18; Admin Dose 400 MG; Start 10/09/18 at 15:30 Hydralazine HCl (Apresoline) 10 mg Q4H PRN IV ELEVATED BLOOD PRESSURE; Start at 14:00 Hydromorphone HCl (Dilaudid) 4 mg Q4H PRN PO MODERATE PAIN LEVEL 7-10 Last administered on 10/15/18 12:23; Admin Dose 4 MG; Start 10/09/18 at 14:00 Hydroxychloroquine Sulfate (Plaquenil) 200 mg BID PO Last administered on 10/15/18 08:46; Admin Dose 200 MG; Start 10/09/18 at 21:00 Diagnostic Test (Pha) (Accu-Chek) 1 ea 02 XX Last administered on 10/15/18 01:32; Admin Dose 1 EA; Start 10/10/18 at 02:00 Insulin Aspart (Novolog Insulin Pen) NOVOLOG *CUSTOM* ALGORITHM Q6H SC Last administered on 10/14/18 20:51; Admin Dose 1 UNIT; Start 10/09/18 at 14:00 Lactobacillus Acidophilus (Florajen3 Capsule) 1 each BID GTB Last administered on 10/15/18 08:48; Admin Dose 1 EACH; Start 10/09/18 at 21:00 Lansoprazole (Prevacid) 30 mg BID@06,18 GTB Last administered on 10/15/18 05:18; Admin Dose 30 MG; Start 10/09/18 at 18:00 Levetiracetam (Keppra Liquid) 500 mg BID GTB Last administered on 10/15/18 08:46; Admin Dose 500 MG; Start 10/09/18 at 21:00 Magnesium Oxide (Mag-Ox 400) 400 mg BID GTB Last administered on 10/15/18 08:47; Admin Dose 400 MG; Start 10/09/18 at 21:00 Metoclopramide HCl (Reglan) 10 mg TID IV Last administered on 10/15/18 08:48; Admin Dose 10 MG; Start 10/09/18 at 21:00 Miconazole Nitrate (Miconazole 2% Cr) 1 applic BID TOP Last administered on 10/15/18at 08:48; Admin Dose 1 APPLIC; Start 10/09/18 at 21:00 Miconazole Nitrate (Miconazole 2% Cr) 1 applic Q12 PRN TOP rash; Start 10/09/18 at 14:00 Ondansetron HCl (Zofran Inj) 4 mg Q4H PRN IV NAUSEA AND/OR VOMITING Last administered on 10/14/18at 23:18; Admin Dose 4 MG; Start 10/09/18 at 14:00 Polyethylene Glycol (Miralax) 17 gm DAILY PRN GTB CONSTIPATION; Start 10/09/18 at 14:00 Senna (Senokot) 2 tab Q8 PRN PO CONSTIPATION; Start 10/09/18 at 14:00 Trimethoprim/ Sulfamethoxazole (Bactrim Susp) 40 ml DAILY GTB Last administered on 10/15/18at 08:46; Admin Dose 40 ML; Start 10/10/18 at 09:00 Zolpidem Tartrate (Ambien) 5 mg HS PRN PO INSOMNIA Last administered on 10/15/18at 00:09; Admin Dose 5 MG; Start 10/09/18 at 14:00 Miscellaneous Information 1 ea NOTE XX ; Start 10/09/18 at 15:00 Glucose (Glutose) 15 gm Q15M PRN PO DECREASED GLUCOSE; Start 10/09/18 at 15:00 Glucose (Glutose) 22.5 gm Q15M PRN PO DECREASED GLUCOSE; Start 10/09/18 at 15:00 Dextrose (D50w Syringe) 25 ml Q15M PRN IV DECREASED GLUCOSE; Start 10/09/18 at 15:00 Dextrose (D50w Syringe) 50 ml Q15M PRN IV DECREASED GLUCOSE; Start 10/09/18 at 15:00 Glucagon (Glucagen) 1 mg Q15M PRN IM DECREASED GLUCOSE; Start 10/09/18 at 15:00 Glucose (Glutose) 15 gm Q15M PRN BUCCAL DECREASED GLUCOSE; Start 10/09/18 at 15:00 Sodium Chloride 500 ml @ 500 mls/hr Q1H PRN IV BLOOD PRESSURE SUPPORT Last administered on 10/10/18at 07:59; Admin Dose 500 MLS/HR; Start 10/09/18 at 19:30 Piperacillin Sod/ Tazobactam Sod 100 ml @ 200 mls/hr Q6 IVPB Last administered on 10/15/18 12:06; Admin Dose 200 MLS/HR; Start 10/09/18 at 20:00 Albuterol (Ventolin Hfa) 4 puff Q6H RESP THERAPY INH Last administered on 10/15/18 08:24; Admin Dose 4 PUFF; Start 10/10/18 at 02:00 Ipratropium [place] (Atrovent Hfa) 4 puff Q6H RESP THERAPY INH Last administ ered on 10/15/18 08:23; Admin Dose 4 PUFF; Start 10/10/18 at 02:00 Methylprednisolone Sodium Succinate (Solu-Medrol) 40 mg Q8 IV Last administered on 10/15/18 05:18; Admin Dose 40 MG; Start 10/14/18 at 14:00 Quetiapine Fumarate (Seroquel) 50 mg BID GTB Last administered on 10/15/18 08:46; Admin Dose 50 MG; Start 10/14/18 at 13:30 Lorazepam (Ativan) 1 mg Q4H PRN GTB AGITATION/ANXIETY Last administered on 10/15/18 12:07; Admin Dose 1 MG; Start 10/14/18 at 13:00 Lisinopril (Zestril) 2.5 mg DAILY PO Last administered on 10/15/18 08:47; Admin Dose 2.5 MG; Start 10/15/18 at 09:00 Carvedilol (Coreg) 3.125 mg BID PO Last administered on 10/14/18 23:47; Admin Dose 3.125 MG; Start 10/14/18 at 21:00 Hydromorphone HCl (Dilaudid) 2 mg Q4H PRN PO PAIN LEVEL 4-6; Start 10/14/18 at 17:30 Fentanyl (Duragesic 50 Mcg/Hr Patch) 1 patch Q72H TRANSDERM Last administered on 10/14/18at 20:18; Admin Dose 1 PATCH; Start 10/14/18 at 18:30 Imaging 1. Tachycardia at this time in the setting of fevers and respiratory distress, most consistent with sinus tachycardia likely driving this proces - responding to pain meds - OK to hydrate gently. 2. Hypertension with borderline hypotension at this time. -still borderline Hotn - stable now 3. Abnormal electrocardiogram at baseline - no intervention palnned. 4. Chronic respiratory failure, status post tracheostomy.-weaning vent support - con't resp rx. 5. Dysphagia, status post G-tube. 6. Quadriplegia- skin care in place. 7. Renal insufficiency, on steroids. 8. Chronic obstructive pulmonary disease - on therapy now. 9. Rheumatoid arthritis. 10. Chronic kidney disease. 11. Diabetes mellitus. 12.Adrenal insufficiency Assessment/Plan Hospital Course (Demo Recall) 1. Tachycardia at this time in the setting of fevers and respiratory distress, most consistent with sinus tachycardia likely driving this process - better now, con't supportive Rx and pain management. 2. Hypertension with borderline hypotension at this time. -still borderline Hotn - no focal symptoms. Will monitor now. 3. Abnormal electrocardiogram at baseline. 4. Chronic respiratory failure, status post tracheostomy.-weaning vent support - con't resp Rx. 5. Dysphagia, status post G-tube. 6. Quadriplegia- skin care in palce. 7. Renal insufficiency, on steroids- Cr 0.97 now. Stable. 8. Chronic obstructive pulmonary disease - con't resp Rx per pulmonary team. 9. Rheumatoid arthritis. 10. Chronic kidney disease. 11. Diabetes mellitus- on meds. VANESSA COOPER MD Oct 15, 2018 12:34
--- NOTE | 2018-10-15 13:03 | CONS ---
Assessment/Plan Assessment/Plan Hospital Course (Demo Recall) Interval hx: Tolerating tube feeds. C diff negative. Rectal tube with brown liquid stool. 1. Respiratory failure secondary to pneumonia versus interstitial pneumonitis from rheumatoid arthritis versus mild aspiration. The patient was getting ice chips. There was no evidence of aspiration of formula. 2. Severe rheumatoid arthritis. On steroids 3. Quadriplegia. 4. Adrenal insufficiency. 5. Gastroparesis. 6. Hypothyroidism. 7. Chronic pain syndrome. 8. Hypertension. 9. Diarrhea, improved 10. History of esophagitis PLAN: Patient's tube feeding increased to 55 cc/h and is tolerating it Continue Reglan. And PPI Aspiration precautions Consultation Date/Type/Reason Admit Date/Time Oct 09, 2018 at 12:16 Initial Consult Date 10/12/18 Requesting Provider: NOLA VIDAL MD Date/Time of Note DATE: 10/15/18 TIME: 13:00 Exam/Review of Systems Exam Vitals Vital Signs Date Temp Pulse Resp B/P (MAP) Pulse Ox O2 O2 Flow FiO2 Time Delivery Rate 10/15/18 80 11:35 10/15/18 110 26 95 11:10 10/15/18 108/78 Mechanical 10:30 (88) Ventilator 10/15/18 99.5 08:00 Intake and Output 10/14/18 10/14/18 10/15/18 1515:00 23:00 07:00 IntakeIntake Total 940 ml 940 ml 1040 ml OutputOutput Total 550 ml 520 ml 775 ml BalanceBalance 390 ml 420 ml 265 ml Constitutional: non-verbal Head: normocephalic, atraumatic Neck: supple Cardiovascular: regular rate and rhythm Gastrointestinal: soft (RECTAL TUBE) Extremities: normal pulses Results Result Diagram: 10/14/18 0420 10/15/18 0530 Results 24hrs Laboratory Tests Test 10/14/18 13:24 10/14/18 20:46 10/15/18 01:32 10/15/18 05:30 Bedside Glucose 120 181 150 Sodium Level 141 Potassium Level 4.1 Chloride Level 101 Carbon Dioxide 32 H Level Anion Gap 8 Blood Urea 15 Nitrogen Creatinine 0.62 Est Glomerular > 60 Filtrat Rate mL/min Glucose Level 130 Calcium Level 7.6 L Phosphorus Level 4.4 Magnesium Level 1.8 Total Bilirubin 0.0 L Direct Bilirubin 0.00 Indirect Bilirubin 0.0 Aspartate Amino 34 Transf (AST/SGOT) Alanine 28 Aminotransferase ( ALT/SGPT) Alkaline 237 H Phosphatase Total Protein 6.3 Albumin 3.1 L Globulin 3.20 Albumin/Globulin 0.96 Ratio Test 10/15/18 07:00 10/15/18 08:44 Blood Gas Specimen Blood arterial Source Arterial Blood 10/15/2018 9:30:16 Date Drawn AM Arterial Blood pH 7.391 (Temp corrected) Arterial Blood 51.1 H pCO2 (Temp correct) Arterial Blood pO2 134.2 H (Temp corrected) Arterial Blood 30.3 H HCO3 Arterial Blood 4.5 H Base Excess Arterial Blood 98.2 H Oxygen Saturation [place] Test ACCEPTAB Arterial Blood Gas Right Radial Puncture Site Arterial 0.4 Blood Carboxyhemog lobin Arterial Blood 0.2 Methemoglobin Blood Gas A-a O2 527.7 H Differential Oxyhemoglobin 97.6 Percent Blood Gas 37.0 Temperature Blood Gas 20.0 Respiration Rate Blood Gas Actual 23 Respiration Rate Blood Gas Modality VENT - PC FiO2 100.0 Blood Gas 0.70 Inspiratory Time Blood Gas Tidal 428.0 Volume Blood Gas Low PEEP 5.0 Setting Blood Gas 28.0 Inspiratory Pressure Blood Gas Notified Lauren MILLER RCP Whom Blood Gas Notified 10/15/2018 9:52:01 Time AM Bedside Glucose 129 Medications Medication Current Medications Acetaminophen (Tylenol Liquid) 650 mg Q4H PRN GTB MILD PAIN(1-3)OR ELEVATED TEMP Last administered on 10/10/18at 03:10; Admin Dose 650 MG; Start 10/09/18 at 14:00 Al Hydrox/Mg Hydrox/Simethicone (Mag-Al Plus) 15 ml Q6H PRN PO GASTROINTESTINAL UPSET; Start 10/09/18 at 14:00 Eye Lubricant (Artificial Tears Oph) 1 drop Q6H PRN BOTH EYES DRY EYES; Start 10/09/18 at 14:00 Bisacodyl (Dulcolax Supp) 10 mg DAILY PRN [place] CONSTIPATION; Start 10/09/18 at 14:00 Clonidine (Catapres) 0.1 mg DAILY PRN GTB ELEVATED BLOOD PRESSURE; Start 10/09/18 at 14:00 Diltiazem HCl (Cardizem Iv) 5 mg Q4 PRN IV ELEVATED HEART RATE Last administered on 10/15/18at 09:00; Admin Dose 5 MG; Start 10/09/18 at 14:00 Diphenhydramine HCl (Benadryl Liquid Cup) 25 mg Q6 PRN GTB ITCHING; Start 10/09/18 at 14:00 Duloxetine HCl (Cymbalta) 30 mg DAILY PO Last administered on 10/15/18 08:46; Admin Dose 30 MG; Start 10/10/18 at 09:00 Epoetin Arpan (Epogen (Esrd)) 10,000 units TuSa@1300 SC Last administered on 10/11/18 13:54; Admin Dose 10,000 UNITS; Start 10/11/18 at 13:00 Gabapentin (Neurontin Liquid) 400 mg Q8 GTB Last administered on 10/15/18 05:18; Admin Dose 400 MG; Start 10/09/18 at 15:30 Hydralazine HCl (Apresoline) 10 mg Q4H PRN IV ELEVATED BLOOD PRESSURE; Start 10/09/18 at 14:00 Hydromorphone HCl (Dilaudid) 4 mg Q4H PRN PO MODERATE PAIN LEVEL 7-10 Last administered on 10/15/18 12:23; Admin Dose 4 MG; Start 10/09/18 at 14:00 Hydroxychloroquine Sulfate (Plaquenil) 200 mg BID PO Last administered on 10/15/18 08:46; Admin Dose 200 MG; Start 10/09/18 at 21:00 Diagnostic Test (Pha) (Accu-Chek) 1 ea 02 XX Last administered on 10/15/18 01:32; Admin Dose 1 EA; Start 10/10/18 at 02:00 Insulin Aspart (Novolog Insulin Pen) NOVOLOG *CUSTOM* ALGORITHM Q6H SC Last administered on 10/14/18 20:51; Admin Dose 1 UNIT; Start 10/09/18 at 14:00 Lactobacillus Acidophilus (Florajen3 Capsule) 1 each BID GTB Last administered on 10/15/18 08:48; Admin Dose 1 EACH; Start 10/09/18 at 21:00 Lansoprazole (Prevacid) 30 mg BID@06,18 GTB Last administered on 10/15/18 05:18; Admin Dose 30 MG; Start 10/09/18 at 18:00 Levetiracetam (Keppra Liquid) 500 mg BID GTB Last administered on 10/15/18 08:46; Admin Dose 500 MG; Start 10/09/18 at 21:00 Magnesium Oxide (Mag-Ox 400) 400 mg BID GTB Last administered on 10/15/18 08:47; Admin Dose 400 MG; Start 10/09/18 at 21:00 Metoclopramide HCl (Reglan) 10 mg TID IV Last administered on 10/15/18 08:48; Admin Dose 10 MG; Start 10/09/18 at 21:00 Miconazole Nitrate (Miconazole 2% Cr) 1 applic BID TOP Last administered on 10/15/18 08:48; Admin Dose 1 APPLIC; Start 10/09/18 at 21:00 Miconazole Nitrate (Miconazole 2% Cr) 1 applic Q12 PRN TOP rash; Start 10/09/18 at 14:00 Ondansetron HCl (Zofran Inj) 4 mg Q4H PRN IV NAUSEA AND/OR VOMITING Last administered on 10/14/18 23:18; Admin Dose 4 MG; Start 10/09/18 at 14:00 Polyethylene Glycol (Miralax) 17 gm DAILY PRN GTB CONSTIPATION; Start 10/09/18 at 14:00 Senna (Senokot) 2 tab Q8 PRN PO CONSTIPATION; Start 10/09/18 at 14:00 Trimethoprim/ Sulfamethoxazole (Bactrim Susp) 40 ml DAILY GTB Last administered on 10/15/18 08:46; Admin Dose 40 ML; Start 10/10/18 at 09:00 Zolpidem Tartrate (Ambien) 5 mg HS PRN PO INSOMNIA Last administered on 10/15/18 00:09; Admin Dose 5 MG; Start 10/09/18 at 14:00 Miscellaneous Information 1 ea NOTE XX ; Start 10/09/18 at 15:00 Glucose (Glutose) 15 gm Q15M PRN PO DECREASED GLUCOSE; Start 10/09/18 at 15:00 Glucose (Glutose) 22.5 gm Q15M PRN PO DECREASED GLUCOSE; Start 10/09/18 at 15:00 Dextrose (D50w Syringe) 25 ml Q15M PRN IV DECREASED GLUCOSE; Start 10/09/18 at 15:00 Dextrose (D50w Syringe) 50 ml Q15M PRN IV DECREASED GLUCOSE; Start 10/09/18 at 15:00 Glucagon (Glucagen) 1 mg Q15M PRN IM DECREASED GLUCOSE; Start 10/09/18 at 15:00 Glucose (Glutose) 15 gm Q15M PRN BUCCAL DECREASED GLUCOSE; Start 10/09/18 at 15:00 Sodium Chloride 500 ml @ 500 mls/hr Q1H PRN IV BLOOD PRESSURE SUPPORT Last administered on 10/10/18 07:59; Admin Dose 500 MLS/HR; Start 10/09/18 at 19:30 Piperacillin Sod/ Tazobactam Sod 100 ml @ 200 mls/hr Q6 IVPB Last administered on 10/15/18 12:06; Admin Dose 200 MLS/HR; Start 10/09/18 at 20:00 Albuterol (Ventolin Hfa) 4 puff Q6H RESP THERAPY INH Last administered on 10/15/18 08:24; Admin Dose 4 PUFF; Start 10/10/18 at 02:00 Ipratropium [place] (Atrovent Hfa) 4 puff Q6H RESP THERAPY INH Last administered on 10/15/18 08:23; Admin Dose 4 PUFF; Start 10/10/18 at 02:00 Methylprednisolone Sodium Succinate (Solu-Medrol) 40 mg Q8 IV Last administered on 10/15/18 05:18; Admin Dose 40 MG; Start 10/14/18 at 14:00 Quetiapine Fumarate (Seroquel) 50 mg BID GTB Last administered on 10/15/18 08:46; Admin Dose 50 MG; Start 10/14/18 at 13:30 Lorazepam (Ativan) 1 mg Q4H PRN GTB AGITATION/ANXIETY Last administered on 10/15/18 12:07; Admin Dose 1 MG; Start 10/14/18 at 13:00 Lisinopril (Zestril) 2.5 mg DAILY PO Last administered on 10/15/18 08:47; Admin Dose 2.5 MG; Start 10/15/18 at 09:00 Carvedilol (Coreg) 3.125 mg BID PO Last administered on 10/14/18 23:47; Admin Dose 3.125 MG; Start 10/14/18 at 21:00 Hydromorphone HCl (Dilaudid) 2 mg Q4H PRN PO PAIN LEVEL 4-6; Start 10/14/18 at 17:30 Fentanyl (Duragesic 50 Mcg/Hr Patch) 1 patch Q72H TRANSDERM Last administered on 10/14/18at 20:18; Admin Dose 1 PATCH; Start 10/14/18 at 18:30 CLAU MORRISSEY NP Oct 15, 2018 13:03
[2018-10-15] MEDS: EPOETIN 10000 UNITS/1 ML INJ (ESRD) SC SCH (13:20)
--- NOTE | 2018-10-15 21:58 | CONS ---
Assessment/Plan Assessment/Plan Hospital Course (Demo Recall) # sepsis, respiratory - recurrent sepsis on 10/08/2018 due to aspiration pneumonia, HCAP - possible aspiration pneumonia, recurrent pneumonia due to citrobacter - acute on chronic hypoxic and hypercarbic respiratory failure - persistent leukocytosis likely due to pneumonia, partly due to steroid margination - h/o tracheostomy on 08/26/2018 - h/o "Increased mild left apical pneumothorax" per CXR on 09/19/2018; no pneumothorax mentioned on subsequent CXR - h/o pneumomediastinum - h/o VAT on 08/11/2018 - h/o asthma/COPD exacerbation - h/o acute tracheobronchitis - h/o MAC infection but CT chest did not demonstrate features suggestive of this per chart review - h/o HCAP due to citrobacter, based on resp culture on 09/13/2018 - h/o aspergillus growing out of resp culture per (pulm note by Dr. Lopez) on 07/25/2018 - h/o elevated 1,3 [id number]-[id number] level = 232 on 08/06/2018 - h/o MSSA septicemia # GI - diarrhea, C diff on 10/09/2018 was negative - h/o HSV esophagitis, took acyclovir x21 days from 08/26/2018 - h/o EGD, esophageal biopsy showed esophageal squamous mucosa showing acute inflammation, granulation tissue, and ulceration consistent with ulcerative esophagitis, rare multinucleated cells with morphology suggestive of vial cytopathic changes, No cardiac mucosa, intestinal metaplasia, dysplasia, or malignancy defined - GERD - PUD # renal/ - Hypokalemia, recurrent - CKD 2 - BPH # cardiac - tachycardia, persistent - ACD - HTN - HLD # endo - T2DM - Hgb A1c 7.2% - secondary adrenal insufficiency; steroid dependent - Hypoparathyroidism - Hypercalcemia - Pamidronate was ordered # neuro - toxic metabolic encephalopathy - Cervical myopathy - Severe cervical spinal cord stenosis with cord compression from C3-C5, s/p laminectomy in ~03/2018 - Chronic pain syndrome - Functional quadriplegia - Seizure d/o # other chronic conditions - RA with chronic steroid dependence - Immunocompromised status - Fibromyalgia rheumatica - DDD - H/o multiple rib fracture - Pt completed: meropenem (09/25/2018-10/02/2018), vancomycin (09/25/18-09/28/18) recommendations - end pip/tazo (10/09/2018-) today - continue Bactrim for pneumocystis PPX - management d/w Pt's RN the critical care time I took to care for this Pt today was from 2099 to 2129 Consultation Date/Type/Reason Admit Date/Time Oct 09, 2018 at 12:16 Initial Consult Date 10/09/18 Type of Consult ID Requesting Provider: NOLA VIDAL MD Date/Time of Note DATE: 10/15/18 TIME: 21:56 24 HR Interval Summary Subjective hx not possible: pt non-verbal, pt critical, pt critical status Exam/Review of Systems Exam Vitals Vital Signs Date Temp Pulse Resp B/P (MAP) Pulse Ox O2 O2 Flow FiO2 Time Delivery Rate 10/15/18 106 20:00 10/15/18 24 98 90 19:32 10/15/18 102/81 Mechanical 18:00 (88) Ventilator 10/15/18 98.7 16:00 Intake and Output 10/14/18 10/14/18 10/15/18 1515:00 23:00 07:00 IntakeIntake Total 940 ml 940 ml 1040 ml OutputOutput Total 550 ml 520 ml 775 ml BalanceBalance 390 ml 420 ml 265 ml Constitutional: non-verbal, frail Psych: confusion Head: normocephalic, atraumatic Eyes: nl conjunctiva, nl lids, nl sclera ENMT: nl external ears & nose, nl nasal mucosa & septum, mucosa pink and moist Neck: other (trach) Respiratory: diminished breath sounds Cardiovascular: regular rate and rhythm, nl pulses Gastrointestinal: soft, non-tender, other (rectal tube) Genitourinary - Male: other (FC) Extremities: edema (b/l hands) Neurological: lethargic Skin: nl turgor, ecchymosis Results Result Diagram: 10/14/18 0420 10/15/18 0530 Results 24hrs Laboratory Tests Test 10/15/18 01:32 10/15/18 05:30 10/15/18 07:00 10/15/18 08:44 Bedside Glucose 150 129 Sodium Level 141 Potassium Level 4.1 Chloride Level 101 Carbon Dioxide 32 H Level Anion Gap 8 Blood Urea 15 Nitrogen Creatinine 0.62 Est Glomerular > 60 Filtrat Rate mL/min Glucose Level 130 Calcium Level 7.6 L Phosphorus Level 4.4 Magnesium Level 1.8 Total Bilirubin 0.0 L Direct Bilirubin 0.00 Indirect Bilirubin 0.0 Aspartate Amino 34 Transf (AST/SGOT) Alanine 28 Aminotransferase ( ALT/SGPT) Alkaline 237 H Phosphatase Total Protein 6.3 Albumin 3.1 L Globulin 3.20 Albumin/Globulin 0.96 Ratio Blood Gas Specimen Blood arterial Source Arterial Blood 10/15/2018 9:30:16 Date Drawn AM Arterial Blood pH 7.391 (Temp corrected) Arterial Blood 51.1 H pCO2 (Temp correct) Arterial Blood pO2 134.2 H (Temp corrected) Arterial Blood 30.3 H HCO3 Arterial Blood 4.5 H Base Excess Arterial Blood 98.2 H Oxygen Saturation [place] Test ACCEPTAB Arterial Blood Gas Right Radial Puncture Site Arterial 0.4 Blood Carboxyhemog lobin Arterial Blood 0.2 Methemoglobin Blood Gas A-a O2 527.7 H Differential Oxyhemoglobin 97.6 Percent Blood Gas 37.0 Temperature Blood Gas 20.0 Respiration Rate Blood Gas Actual 23 Respiration Rate Blood Gas Modality VENT - PC FiO2 100.0 Blood Gas 0.70 Inspiratory Time Blood Gas Tidal 428.0 Volume Blood Gas Low PEEP 5.0 Setting Blood Gas 28.0 Inspiratory Pressure Blood Gas Notified Lauren MILLER [employer] Whom Blood Gas Notified 10/15/2018 9:52:01 Time AM Test 10/15/18 13:28 10/15/18 21:00 Bedside Glucose 149 168 Medications Medication Current Medications Acetaminophen (Tylenol Liquid) 650 mg Q4H PRN GTB MILD PAIN(1-3)OR ELEVATED TEMP Last administered on 10/10/18at 03:10; Admin Dose 650 MG; Start 10/09/18 at 14:00 Al Hydrox/Mg Hydrox/Simethicone (Mag-Al Plus) 15 ml Q6H PRN PO GASTROINTESTINAL UPSET; Start 10/09/18 at 14:00 Eye Lubricant (Artificial Tears Oph) 1 drop Q6H PRN BOTH EYES DRY EYES; Start 10/09/18 at 14:00 Bisacodyl (Dulcolax Supp) 10 mg DAILY PRN [place] CONSTIPATION; Start 10/09/18 at 14:00 Clonidine (Catapres) 0.1 mg DAILY PRN GTB ELEVATED BLOOD PRESSURE; Start 10/09/18 at 14:00 Diltiazem HCl (Cardizem Iv) 5 mg Q4 PRN IV ELEVATED HEART RATE Last administered on 10/15/18 09:00; Admin Dose 5 MG; Start 10/09/18 at 14:00 Diphenhydramine HCl (Benadryl Liquid Cup) 25 mg Q6 PRN GTB ITCHING; Start 10/09/18 at 14:00 Duloxetine HCl (Cymbalta) 30 mg DAILY PO Last administered on 10/15/18 08:46; Admin Dose 30 MG; Start 10/10/18 at 09:00 Epoetin Arpan (Epogen (Esrd)) 10,000 units TuSa@1300 SC Last administered on 10/15/18 13:20; Admin Dose 10,000 UNITS; Start 10/11/18 at 13:00 Gabapentin (Neurontin Liquid) 400 mg Q8 GTB Last administered on 10/15/18 21:19; Admin Dose 400 MG; Start 10/09/18 at 15:30 Hydralazine HCl (Apresoline) 10 mg Q4H PRN IV ELEVATED BLOOD PRESSURE; Start 10/09/18 at 14:00 Hydromorphone HCl (Dilaudid) 4 mg Q4H PRN PO MODERATE PAIN LEVEL 7-10 Last administered on 10/15/18 16:20; Admin Dose 4 MG; Start 10/09/18 at 14:00 Hydroxychloroquine Sulfate (Plaquenil) 200 mg BID PO Last administered on 10/15/18 21:15; Admin Dose 200 MG; Start 10/09/18 at 21:00 Diagnostic Test (Pha) (Accu-Chek) 1 ea 02 XX Last administered on 10/15/18 01:32; Admin Dose 1 EA; Start 10/10/18 at 02:00 Insulin Aspart (Novolog Insulin Pen) NOVOLOG *CUSTOM* ALGORITHM Q6H SC Last administered on 10/15/18 21:03; Admin Dose 1 UNIT; Start 10/09/18 at 14:00 Lactobacillus Acidophilus (Florajen3 Capsule) 1 each BID GTB Last administered on 10/15/18 21:19; Admin Dose 1 EACH; Start 10/09/18 at 21:00 Lansoprazole (Prevacid) 30 mg BID@06,18 GTB Last administered on 10/15/18 17:48; Admin Dose 30 MG; Start 10/09/18 at 18:00 Levetiracetam (Keppra Liquid) 500 mg BID GTB Last administered on 10/15/18 21:16; Admin Dose 500 MG; Start 10/09/18 at 21:00 Magnesium Oxide (Mag-Ox 400) 400 mg BID GTB Last administered on 10/15/18 21:15; Admin Dose 400 MG; Start 10/09/18 at 21:00 Metoclopramide HCl (Reglan) 10 mg TID IV Last administered on 10/15/18 21:15; Admin Dose 10 MG; Start 10/09/18 at 21:00 Miconazole Nitrate (Miconazole 2% Cr) 1 applic BID TOP Last administered on 10/15/18 21:16; Admin Dose 1 APPLIC; Start 10/09/18 at 21:00 Miconazole Nitrate (Miconazole 2% Cr) 1 applic Q12 PRN TOP rash; Start 10/09/18 at 14:00 Ondansetron HCl (Zofran Inj) 4 mg Q4H PRN IV NAUSEA AND/OR VOMITING Last administered on 10/14/18 23:18; Admin Dose 4 MG; Start 10/09/18 at 14:00 Polyethylene Glycol (Miralax) 17 gm DAILY PRN GTB CONSTIPATION; Start 10/09/18 at 14:00 Senna (Senokot) 2 tab Q8 PRN PO CONSTIPATION; Start 10/09/18 at 14:00 Trimethoprim/ Sulfamethoxazole (Bactrim Susp) 40 ml DAILY GTB Last administered on 10/15/18 08:46; Admin Dose 40 ML; Start 10/10/18 at 09:00 Zolpidem Tartrate (Ambien) 5 mg HS PRN PO INSOMNIA Last administered on 10/15/18 00:09; Admin Dose 5 MG; Start 10/09/18 at 14:00 Miscellaneous Information 1 ea NOTE XX ; Start 10/09/18 at 15:00 Glucose (Glutose) 15 gm Q15M PRN PO DECREASED GLUCOSE; Start 10/09/18 at 15:00 Glucose (Glutose) 22.5 gm Q15M PRN PO DECREASED GLUCOSE; Start 10/09/18 at 15:00 Dextrose (D50w Syringe) 25 ml Q15M PRN IV DECREASED GLUCOSE; Start 10/09/18 at 15:00 Dextrose (D50w Syringe) 50 ml Q15M PRN IV DECREASED GLUCOSE; Start 10/09/18 at 15:00 Glucagon (Glucagen) 1 mg Q15M PRN IM DECREASED GLUCOSE; Start 10/09/18 at 15:00 Glucose (Glutose) 15 gm Q15M PRN BUCCAL DECREASED GLUCOSE; Start 10/09/18 at 15:00 Sodium Chloride 500 ml @ 500 mls/hr Q1H PRN IV BLOOD PRESSURE SUPPORT Last administered on 10/10/18 07:59; Admin Dose 500 MLS/HR; Start 10/09/18 at 19:30 Piperacillin Sod/ Tazobactam Sod 100 ml @ 200 mls/hr Q6 IVPB Last administered on 10/15/18 17:48; Admin Dose 200 MLS/HR; Start 10/09/18 at 20:00 Albuterol (Ventolin Hfa) 4 puff Q6H RESP THERAPY INH Last administered on 10/15/18 13:14; Admin Dose 4 PUFF; Start 10/10/18 at 02:00 Ipratropium [place] (Atrovent Hfa) 4 puff Q6H RESP THERAPY INH Last administered on 10/15/18 13:14; Admin Dose 4 PUFF; Start 10/10/18 at 02:00 Methylprednisolone Sodium Succinate (Solu-Medrol) 40 mg Q8 IV Last administered on 10/15/18 21:15; Admin Dose 40 MG; Start 10/14/18 at 14:00 Quetiapine Fumarate (Seroquel) 50 mg BID GTB Last administered on 10/15/18 21:15; Admin Dose 50 MG; Start 10/14/18 at 13:30 Lorazepam (Ativan) 1 mg Q4H PRN GTB AGITATION/ANXIETY Last administered on 10/15/18 16:20; Admin Dose 1 MG; Start 10/14/18 at 13:00 Lisinopril (Zestril) 2.5 mg DAILY PO Last administered on 10/15/18 08:47; Admin Dose 2.5 MG; Start 10/15/18 at 09:00 Carvedilol (Coreg) 3.125 mg BID PO Last administered on 10/15/18 21:16; Admin Dose 3.125 MG; Start 10/14/18 at 21:00 Hydromorphone HCl (Dilaudid) 2 mg Q4H PRN PO PAIN LEVEL 4-6; Start 10/14/18 at 17:30 Fentanyl (Duragesic 50 Mcg/Hr Patch) 1 patch Q72H TRANSDERM Last administered on 10/14/18at 20:18; Admin Dose 1 PATCH; Start 10/14/18 at 18:30 NEMO MARTINEZ M.D. Oct 15, 2018 21:58
[2018-10-15] MEDS: ONDANSETRON 4 MG INJ IV PRN (22:52)
[2018-10-16] VITALS (35 sets, daily range): BP systolic 86–135; BP diastolic 66–109; PULSE 101–127; RESP 18–38
[2018-10-16] MEDS: INSULIN ASPART [NOVOLOG] 3 ML PEN SC SCH ×4 (02:48→21:04)
[2018-10-16] MEDS: ACCU-CHEK XX SCH (02:48)
[2018-10-16] MEDS: ALBUTEROL HFA 8 GM INHALER INH SCH ×4 (02:58→19:20)
[2018-10-16] MEDS: IPRATROPIUM (HFA) 12.9 GM INHALER INH SCH ×4 (02:59→19:20)
[2018-10-16] MEDS: LORAZEPAM 1 MG TAB GTB PRN ×5 (03:42→21:13)
[2018-10-16] MEDS: HYDROmorphONE 2 MG TAB PO PRN ×5 (03:48→21:13)
[2018-10-16] MEDS: ZOLPIDEM 5 MG TAB PO PRN (03:48)
[2018-10-16] MEDS: LANSOPRAZOLE 30 MG CAP GTB SCH ×2 (06:07→17:07)
[2018-10-16] MEDS: GABAPENTIN (50 MG/ML PO SYG) GTB SCH ×3 (06:07→21:12)
[2018-10-16] MEDS: METHYLPREDNISOLONE 40 MG INJ IV SCH ×3 (06:07→21:15)
[2018-10-16] MEDS: ACETAMINOPHEN 650MG/20.3ML CUP GTB PRN (07:52)
--- NOTE | 2018-10-16 08:38 | PN ---
Date/Time of Note Date/Time of Note DATE: 10/16/18 TIME: 08:36 Assessment/Plan VTE Prophylaxis Risk score (from Nsg)>0 risk: 5 SCD applied (from Nsg): Yes Pharmacological prophylaxis: other Lines/Catheters IV Catheter Type (from Nrsg): Mid Line Urinary Cath still in place: No Assessment/Plan Hospital Course brian follow up SUBJECTIVE: The patient is stable on full ventilatory support. No other acute events noted. FIO2 is now at 90% good uop noted good uop with bumex drip OBJECTIVE: HEENT: Head is normocephalic. NECK: Supple. HEART: Regular rate. LUNGS: Show diminished breath sounds at the base. + crackles ABDOMEN: Soft, nontender to palpation without rebound or guarding. EXTREMITIES: Negative for clubbing, cyanosis, no edema. DERMATOLOGIC: No rashes. MUSCULOSKELETAL: No joint effusion. NEUROLOGIC: No change in exam. MEDICATIONS: The patient's medications have been reviewed. I/P 1. Nonoliguric acute kidney injury on top of chronic kidney disease. Etiology of acute kidney injury is secondary to hemodynamics. s/p bumex drip for pulm edema 2. Hypernatremia, improved. Etiology is likely due to insensible losses. Continue free water flushes, continue to monitor sodium levels. 3. Anemia. Continue to monitor hemoglobin and hematocrit levels. 4. Mineral bone disorder, monitor calcium and phosphorus levels. 5. Ventilator-dependent respiratory failure. Vent settings and ABG was reviewed. Continue to monitor. 6. Dysphagia, status post percutaneous endoscopic gastrostomy. Continue tube feeding. 7. Quadriplegia. Continue to monitor. 8. Sepsis secondary to pneumonia. Continue current antibiotic regimen. 9. Tachyarrhythmia. Continue current medical management. 10. Chronic encephalopathy. 11. Chronic pain syndrome. Continue current pain regimen. 12. Seizure disorder. Continue current treatment plan. 13. Rheumatoid arthritis. 14. Adrenal insufficiency. Continue Cortef. Result Diagram: 10/16/1812 10/16/18 0512 Results 24hrs Laboratory Tests Test 10/15/18 08:44 10/15/18 13:28 10/15/18 21:00 10/16/18 02:45 Bedside Glucose 129 149 168 195 Test 10/16/18 05:00 10/16/18 05:12 Blood Gas Specimen Blood arterial Source Arterial Blood 10/16/2018 4:40:33 Date Drawn AM Arterial Blood pH 7.396 (Temp corrected) Arterial Blood 52.1 H pCO2 (Temp correct) Arterial Blood pO2 151.4 H (Temp corrected) Arterial Blood 31.3 H HCO3 Arterial Blood 5.5 H Base Excess Arterial Blood 98.7 H Oxygen Saturation [place] Test ACCEPTAB Arterial Blood Gas Right Radial Puncture Site Arterial 0.5 Blood Carboxyhemog lobin Arterial Blood 0.3 Methemoglobin Blood Gas A-a O2 436.9 H Differential Oxyhemoglobin 97.9 Percent Blood Gas 37.0 Temperature Blood Gas 20.0 Respiration Rate Blood Gas Actual 24 Respiration Rate Blood Gas Modality VENT - PC FiO2 90.0 Blood Gas Low PEEP 10.0 Setting Blood Gas 20.0 Inspiratory Pressure Blood Gas Notified Neo LENORHONDA CYRUS Whom Blood Gas Notified 10/16/2018 5:01:04 Time AM White Blood Count 27.3 #H Red Blood Count 3.14 L Hemoglobin 9.0 L Hematocrit 28.9 L Mean Corpuscular 92.0 Volume Mean Corpuscular 28.7 L Hemoglobin Mean Corpuscular 31.1 L Hemoglobin Concent Red Cell 17.3 H Distribution Width Platelet Count 476 #H Mean Platelet 10.8 H Volume Immature 4.000 H Granulocytes % Neutrophils % 80.8 H Lymphocytes % 5.9 L Monocytes % 9.0 Eosinophils % 0.0 Basophils % 0.3 Nucleated Red 0.1 H Blood Cells % Immature 1.080 H Granulocytes # Neutrophils # 22.0 H Lymphocytes # 1.6 Monocytes # 2.4 H Eosinophils # 0.0 Basophils # 0.1 Nucleated Red 0.0 Blood Cells # Sodium Level 141 Potassium Level 4.1 Chloride Level 101 Carbon Dioxide 35 H Level Anion Gap 5 Blood Urea 24 H Nitrogen Creatinine 0.56 L Est Glomerular > 60 Filtrat Rate mL/min Glucose Level 139 Lactic Acid Level 0.9 Calcium Level 6.7 L Exam/Review of Systems Exam Vitals Vital Signs Date Temp Pulse Resp B/P (MAP) Pulse Ox O2 O2 Flow FiO2 Time Delivery Rate 10/16/18 90 08:00 10/16/18 100.2 114 23 122/87 97 [place] 08:00 (99) l Ventilato r Intake and Output 10/15/18 10/15/18 10/16/18 1515:00 23:00 07:00 IntakeIntake Total 1200 ml 1180 ml 840 ml OutputOutput Total 1175 ml 1275 ml 250 ml BalanceBalance 25 ml -95 ml 590 ml Results Results 24hrs Laboratory Tests Test 10/15/18 08:44 10/15/18 13:28 10/15/18 21:00 10/16/18 02:45 Bedside Glucose 129 149 168 195 Test 10/16/18 05:00 10/16/18 05:12 Blood Gas Specimen Blood arterial Source Arterial Blood 10/16/2018 4:40:33 Date Drawn AM Arterial Blood pH 7.396 (Temp corrected) Arterial Blood 52.1 H pCO2 (Temp correct) Arterial Blood pO2 151.4 H (Temp corrected) Arterial Blood 31.3 H HCO3 Arterial Blood 5.5 H Base Excess Arterial Blood 98.7 H Oxygen Saturation Chandler Test ACCEPTAB Arterial Blood Gas Right Radial Puncture Site Arterial 0.5 Blood Carboxyhemog lobin Arterial Blood 0.3 Methemoglobin Blood Gas A-a O2 436.9 H Differential Oxyhemoglobin 97.9 Percent Blood Gas 37.0 Temperature Blood Gas 20.0 Respiration Rate Blood Gas Actual 24 Respiration Rate Blood Gas Modality VENT - PC FiO2 90.0 Blood Gas Low PEEP 10.0 Setting Blood Gas 20.0 Inspiratory Pressure Blood Gas Notified Neo [place] R[facility] Whom Blood Gas Notified 10/16/2018 5:01:04 Time AM White Blood Count 27.3 #H Red Blood Count 3.14 L Hemoglobin 9.0 L Hematocrit 28.9 L Mean Corpuscular 92.0 Volume Mean Corpuscular 28.7 L Hemoglobin Mean Corpuscular 31.1 L Hemoglobin Concent Red Cell 17.3 H Distribution Width Platelet Count 476 #H Mean Platelet 10.8 H Volume Immature 4.000 H Granulocytes % Neutrophils % 80.8 H Lymphocytes % 5.9 L Monocytes % 9.0 Eosinophils % 0.0 Basophils % 0.3 Nucleated Red 0.1 H Blood Cells % Immature 1.080 H Granulocytes # Neutrophils # 22.0 H Lymphocytes # 1.6 Monocytes # 2.4 H Eosinophils # 0.0 Basophils # 0.1 Nucleated Red 0.0 Blood Cells # Sodium Level 141 Potassium Level 4.1 Chloride Level 101 Carbon Dioxide 35 H Level Anion Gap 5 Blood Urea 24 H Nitrogen Creatinine 0.56 L Est Glomerular > 60 Filtrat Rate mL/min Glucose Level 139 Lactic Acid Level 0.9 Calcium Level 6.7 L Medications Medication Current Medications Acetaminophen (Tylenol Liquid) 650 mg Q4H PRN GTB MILD PAIN(1-3)OR ELEVATED TEMP Last administered on 10/16/18 07:52; Admin Dose 650 MG; Start 10/09/18 at 14:00 Al Hydrox/Mg Hydrox/Simethicone (Mag-Al Plus) 15 ml Q6H PRN PO GASTROINTESTINAL UPSET; Start 10/09/18 at 14:00 Eye Lubricant (Artificial Tears Oph) 1 drop Q6H PRN BOTH EYES DRY EYES; Start 10/09/18 at 14:00 Bisacodyl (Dulcolax Supp) 10 mg DAILY PRN OK CONSTIPATION; Start 10/09/18 at 14:00 Clonidine (Catapres) 0.1 mg DAILY PRN GTB ELEVATED BLOOD PRESSURE; Start 10/09/18 at 14:00 Diltiazem HCl (Cardizem Iv) 5 mg Q4 PRN IV ELEVATED HEART RATE Last administered on 10/15/18at 09:00; Admin Dose 5 MG; Start 10/09/18 at 14:00 Diphenhydramine HCl (Benadryl Liquid Cup) 25 mg Q6 PRN GTB ITCHING; Start 10/09/18 at 14:00 Duloxetine HCl (Cymbalta) 30 mg DAILY PO Last administered on 10/15/18at 08:46; Admin Dose 30 MG; Start 10/10/18 at 09:00 Epoetin Arpan (Epogen (Esrd)) 10,000 units TuSa@1300 SC Last administered on 10/15/18at 13:20; Admin Dose 10,000 UNITS; Start 10/11/18 at 13:00 Gabapentin (Neurontin Liquid) 400 mg Q8 GTB Last administered on 10/16/18 06:07; Admin Dose 400 MG; Start 10/09/18 at 15:30 Hydralazine HCl (Apresoline) 10 mg Q4H PRN IV ELEVATED BLOOD PRESSURE; Start 10/09/18 at 14:00 Hydromorphone HCl (Dilaudid) 4 mg Q4H PRN PO MODERATE PAIN LEVEL 7-10 Last administered on 10/16/18at 03:48; Admin Dose 4 MG; Start 10/09/18 at 14:00 Hydroxychloroquine Sulfate (Plaquenil) 200 mg BID PO Last administered on 10/15/18 21:15; Admin Dose 200 MG; Start 10/09/18 at 21:00 Diagnostic Test (Pha) (Accu-Chek) 1 ea 02 XX Last administered on 10/16/18 02:48; Admin Dose 1 EA; Start 10/10/18 at 02:00 Insulin Aspart (Novolog Insulin Pen) NOVOLOG *CUSTOM* ALGORITHM Q6H SC Last administered on 10/16/18 02:48; Admin Dose 1 UNIT; Start 10/09/18 at 14:00 Lactobacillus Acidophilus (Florajen3 Capsule) 1 each BID GTB Last administered on 10/15/18 21:19; Admin Dose 1 EACH; Start 10/09/18 at 21:00 Lansoprazole (Prevacid) 30 mg BID@06,18 GTB Last administered on 10/16/18 06:07; Admin Dose 30 MG; Start 10/09/18 at 18:00 Levetiracetam (Keppra Liquid) 500 mg BID GTB Last administered on 10/15/18 21:16; Admin Dose 500 MG; Start 10/09/18 at 21:00 Magnesium Oxide (Mag-Ox 400) 400 mg BID GTB Last administered on 10/15/18 21:15; Admin Dose 400 MG; Start 10/09/18 at 21:00 Metoclopramide HCl (Reglan) 10 mg TID IV Last administered on 10/15/18 21:15; Admin Dose 10 MG; Start 10/09/18 at 21:00 Miconazole Nitrate (Miconazole 2% Cr) 1 applic BID TOP Last administered on 10/15/18 21:16; Admin Dose 1 APPLIC; Start 10/09/18 at 21:00 Miconazole Nitrate (Miconazole 2% Cr) 1 applic Q12 PRN TOP rash; Start 10/09/18 at 14:00 Ondansetron HCl (Zofran Inj) 4 mg Q4H PRN IV NAUSEA AND/OR VOMITING Last administered on 10/15/18 22:52; Admin Dose 4 MG; Start 10/09/18 at 14:00 Polyethylene Glycol (Miralax) 17 gm DAILY PRN GTB CONSTIPATION; Start 10/09/18 at 14:00 Senna (Senokot) 2 tab Q8 PRN PO CONSTIPATION; Start 10/09/18 at 14:00 Trimethoprim/ Sulfamethoxazole (Bactrim Susp) 40 ml DAILY GTB Last administered on 10/15/18 08:46; Admin Dose 40 ML; Start 10/10/18 at 09:00 Zolpidem Tartrate (Ambien) 5 mg HS PRN PO INSOMNIA Last administered on 10/16/18 03:48; Admin Dose 5 MG; Start 10/09/18 at 14:00 Miscellaneous Information 1 ea NOTE XX ; Start 10/09/18 at 15:00 Glucose (Glutose) 15 gm Q15M PRN PO DECREASED GLUCOSE; Start 10/09/18 at 15:00 Glucose (Glutose) 22.5 gm Q15M PRN PO DECREASED GLUCOSE; Start 10/09/18 at 15:00 Dextrose (D50w Syringe) 25 ml Q15M PRN IV DECREASED GLUCOSE; Start 10/09/18 at 15:00 Dextrose (D50w Syringe) 50 ml Q15M PRN IV DECREASED GLUCOSE; Start 10/09/18 at 15:00 Glucagon (Glucagen) 1 mg Q15M PRN IM DECREASED GLUCOSE; Start 10/09/18 at 15:00 Glucose (Glutose) 15 gm Q15M PRN BUCCAL DECREASED GLUCOSE; Start 10/09/18 at 15:00 Sodium Chloride 500 ml @ 500 mls/hr Q1H PRN IV BLOOD PRESSURE SUPPORT Last administered on 10/10/18 07:59; Admin Dose 500 MLS/HR; Start 10/09/18 at 19:30 Albuterol (Ventolin Hfa) 4 puff Q6H RESP THERAPY INH Last administered on 10/16/18 08:32; Admin Dose 4 PUFF; Start 10/10/18 at 02:00 Ipratropium [place] (Atrovent Hfa) 4 puff Q6H RESP THERAPY INH Last administered on 10/16/18 08:32; Admin Dose 4 PUFF; Start 10/10/18 at 02:00 Methylprednisolone Sodium Succinate (Solu-Medrol) 40 mg Q8 IV Last administered on 10/16/18 06:07; Admin Dose 40 MG; Start 10/14/18 at 14:00 Quetiapine Fumarate (Seroquel) 50 mg BID GTB Last administered on 10/15/18 21:15; Admin Dose 50 MG; Start 10/14/18 at 13:30 Lorazepam (Ativan) 1 mg Q4H PRN GTB AGITATION/ANXIETY Last administered on 10/16/18 07:52; Admin Dose 1 MG; Start 10/14/18 at 13:00 Lisinopril (Zestril) 2.5 mg DAILY PO Last administered on 10/15/18 08:47; Admin Dose 2.5 MG; Start 10/15/18 at 09:00 Carvedilol (Coreg) 3.125 mg BID PO Last administered on 10/15/18 21:16; Admin Dose 3.125 MG; Start 10/14/18 at 21:00 Hydromorphone HCl (Dilaudid) 2 mg Q4H PRN PO PAIN LEVEL 4-6; Start 10/14/18 at 17:30 Fentanyl (Duragesic 50 Mcg/Hr Patch) 1 patch Q72H TRANSDERM Last administered on 10/14/18 20:18; Admin Dose 1 PATCH; Start 10/14/18 at 18:30 ELLIE QUICK DO Oct 16, 2018 08:38
[2018-10-16] MEDS: LISINOPRIL 5 MG TAB PO SCH (08:41)
[2018-10-16] MEDS: METOCLOPRAMIDE 10 MG INJ IV SCH ×3 (08:41→21:15)
[2018-10-16] MEDS: TRIMETHOPRIM/SULFAMETHOX (PO SYG) GTB SCH (08:41)
[2018-10-16] MEDS: LEVETIRACETAM (100 MG/ML) 5ML CUP GTB SCH ×2 (08:41→21:12)
[2018-10-16] MEDS: HYDROXYCHLOROQUINE 200 MG TAB PO SCH ×2 (08:42→21:13)
[2018-10-16] MEDS: QUETIAPINE 25 MG TAB GTB SCH ×2 (08:42→21:13)
[2018-10-16] MEDS: MAGNESIUM OXIDE 400 MG TAB GTB SCH ×2 (08:42→21:13)
[2018-10-16] MEDS: DULOXETINE 30 MG CAP DR PO SCH (08:43)
[2018-10-16] MEDS: MICONAZOLE 2% 30 GM CR TOP SCH ×2 (08:43→21:32)
[2018-10-16] MEDS: BALSAM PERU/CASTOR OIL 60 GM TUBE TOP SCH ×2 (08:43→21:32)
[2018-10-16] MEDS: L ACIDOPHIL/B LACTIS/B LONGUM CAPSULE GTB SCH ×2 (08:49→21:13)
--- NOTE | 2018-10-16 10:26 | CONS ---
Assessment/Plan Assessment/Plan Problems: (1) Diabetes mellitus type 2 in nonobese Status: Chronic Comment: BG slightly higher and has been above goal a few times. Should achieve desired control w/ minimal risk of hypoglycemia by adding linagliptin 5 mg pGT daily. 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 continues to be on therapy w/ solu-medrol 40 mg IV q8. This will more than cover any adrenal insufficiency (3) Hypercalcemia Status: Resolved Comment: Pamidronate therapy continues to cause calcium to chandler. Now frankly hypocalcemic. Will give calcium carbonate down g-tube bid but monitor closely. When calcium > 9.0 would d/c this. Consultation Date/Type/Reason Admit Date/Time Oct 09, 2018 at 12:16 Initial Consult Date 10/12/18 Type of Consult Endocrinology Reason for Consultation Hypercalcemia, T2DM Requesting Provider: NOLA VIDAL MD Date/Time of Note DATE: 10/16/18 TIME: 10:23 24 HR Interval Summary Subjective hx not possible: pt non-verbal, pt critical status Exam/Review of Systems Exam Vitals VS - Last 72 Hours, by Label Date Temp Pulse Resp B/P (MAP) Pulse Ox O2 O2 Flow FiO2 Time Delivery Rate 10/16/18 118 24 122/91 97 [facility] 09:00 (101) l Ventilato r 10/16/18 99.1 08:47 10/16/18 90 08:00 10/16/18 100.2 114 23 122/87 97 [facility] 08:00 (99) l [place]il[place] r 10/16/18 100.2 07:52 10/16/18 112 22 116/80 99 [facility] 07:00 (92) l Ventil[place] r 10/16/18 107 34 106/72 99 [facility] 06:00 (83) l Ventil[place] r 10/16/18 100 22 100 90 05:26 10/16/18 103 32 105/76 99 [facility] 05:00 (86) l [place]il[place] r 10/16/18 98.4 103 38 99/67 (78) 99 [facility] 04:00 l Ventil[place] r 10/16/18 106 04:00 10/16/18 105 22 100 90 03:51 10/16/18 108 23 110/85 99 [facility] 03:00 (93) l Ventil[place] r 10/16/18 106 22 104/75 98 [facility] 02:00 (85) l Ventil[place] r 10/16/18 101 20 107/74 99 [facility] 01:00 (85) l Ventil[place] r 10/16/18 103 21 98 90 00:21 10/16/18 101 21 101/71 98 [facility] 00:00 (81) l [place]il[place] r 10/16/18 102 00:00 10/15/18 106 24 106/81 99 [facility] 23:00 (89) l [place] [facility] Trach Collar 10/15/18 100 23 98 90 22:33 10/15/18 109 22 96/68 (77) 98 [facility] 22:00 l [place]il[place] r Trach Collar 10/15/18 110 35 112/76 100 [facility] 21:00 (88) l [place]il[place] r Trach Collar 10/15/18 106 20:00 10/15/18 98.6 105 20 100/75 98 [facility] 20:00 (83) l [place] r Trach Collar 10/15/18 90 20:00 10/15/18 108 24 98 90 19:32 10/15/18 107 22 99/62 (74) 98 [facility] 19:00 l Ventil[place] r Trach Collar 10/15/18 110 24 102/81 98 [facility] 18:00 (88) l Ventilato r 10/15/18 112 44 100/75 98 [facility] 17:30 (83) l Ventilato r 10/15/18 114 23 104/79 97 [facility] 17:00 (87) l Ventilato r 10/15/18 117 26 97 90 16:55 10/15/18 126 45 134/95 90 [facility] 16:30 (108) l Ventilato r 10/15/18 98.7 122 30 107/81 95 [facility] 16:00 (90) l Ventilato r 10/15/18 123 16:00 10/15/18 124 36 108/93 90 [facility] 15:30 (98) l Ventilato r 10/15/18 122 32 123/91 91 [facility] 15:00 (102) l Ventilato r 10/15/18 119 28 92 90 15:00 10/15/18 118 31 120/87 92 [facility] 14:30 (98) l Ventilato r 10/15/18 119 28 118/91 92 [facility] 14:00 (100) l Ventilato r 10/15/18 109 24 94 80 13:10 10/15/18 110 35 102/75 94 [facility] 13:00 (84) l Ventilato r 10/15/18 115 28 108/78 94 [facility] 12:30 (88) l Ventilato r 10/15/18 116 12:00 10/15/18 99.0 117 19 118/87 92 [facility] 12:00 (97) l Ventil[place] r 10/15/18 80 12:00 10/15/18 80 11:35 10/15/18 107 20 103/76 99 [facility] 11:30 (85) l Ventilato r 10/15/18 110 26 95 90 11:10 10/15/18 108 20 105/73 97 [facility] 11:00 (84) l Ventilato r 10/15/18 109 22 108/78 96 [facility] 10:30 (88) l Ventilato r 10/15/18 109 24 107/76 94 [facility] 10:00 (86) l Ventilato r 10/15/18 108 24 109/79 94 [facility] 09:30 (89) l Ventilato r 10/15/18 107 25 95 100 09:25 10/15/18 115 29 135/93 99 [facility] 09:00 (107) l Ventilato r 10/15/18 117 25 142/82 97 [facility] 08:30 (102) l Ventil[place] r 10/15/18 115 08:00 10/15/18 100 08:00 10/15/18 99.5 115 26 137/100 96 [facility] 08:00 (112) l Ventil[place] r 10/15/18 113 35 95 100 07:50 10/15/18 122 34 151/98 86 [facility] 07:30 (115) l Ventilato r 10/15/18 125 28 141/98 89 [facility] 07:00 (112) l Ventilato r 10/15/18 114 32 124/86 90 [facility] 06:00 (99) l [place] Trach Collar 10/15/18 110 31 99 70 05:14 10/15/18 111 28 123/84 88 [facility] 05:00 (97) l [place] Trach Collar 10/15/18 98.6 105 31 129/83 92 [facility] 04:00 (98) l [place] r Trach Collar 10/15/18 105 04:00 10/15/18 110 29 99 70 03:50 10/15/18 102 28 122/88 92 [facility] 03:00 (99) l [place] Trach Collar 10/15/18 106 32 129/89 90 [facility] 02:00 (102) l [place]il[place] r Trach Collar 10/15/18 111 34 99 70 01:40 10/15/18 65 01:17 10/15/18 99 23 106/72 98 [facility] 01:00 (83) l [place] Trach Collar 10/15/18 112 00:00 10/15/18 98.5 113 29 124/85 93 [facility] 00:00 (98) l [place] Trach Collar 10/14/18 112 27 94 80 23:44 10/14/18 108 31 119/73 96 [facility] 23:00 (88) l [place] Trach Collar 10/14/18 99 27 111/72 97 [facility] 22:00 (85) l [place]il[place] r Trach Collar 10/14/18 112 28 93 80 21:52 10/14/18 95 25 96/72 (80) 100 [facility] 21:00 l [place]il[place] r Trach Collar 10/14/18 85 20:00 10/14/18 98.8 96 22 98/70 (79) [facility] 20:00 l [place]il[place] r Trach Collar 10/14/18 96 20:00 10/14/18 112 28 93 85 19:40 10/14/18 93 22 86/63 (71) 97 [facility] 19:00 l Ventil[place] r 10/14/18 105 31 96/68 (77) 97 [facility] 18:00 l Ventilato r 10/14/18 95 20 98 85 17:15 10/14/18 95 21 87/54 (65) 98 [facility] 17:00 l Ventil[place] r 10/14/18 95 16:00 10/14/18 98.8 101 27 100/74 98 [facility] 16:00 (83) l Ventilato r 10/14/18 100 16:00 10/14/18 100 30 99 85 15:20 10/14/18 97 25 108/76 97 [facility] 15:00 (87) l Ventilato r 10/14/18 102 20 121/74 95 [facility] 14:00 (90) l Ventilato r 10/14/18 94 23 95 85 13:10 10/14/18 94 22 92/62 (72) 95 [facility] 13:00 l Ventil[place] r 10/14/18 98.7 92 20 85/65 (72) 96 [facility] 12:00 l Ventil[place] r 10/14/18 91 12:00 10/14/18 74 24 94 85 11:05 10/14/18 95 22 100/62 95 [facility] 11:00 (75) l Ventil[place] r 10/14/18 99 21 117/78 97 [facility] 10:00 (91) l Ventil[place] r 10/14/18 101 30 98 85 09:15 10/14/18 102 20 130/80 96 [facility] 09:00 (97) l Ventil[place] r 10/14/18 105 08:00 10/14/18 85 08:00 10/14/18 98.5 105 25 123/82 91 [facility] 08:00 (96) l Ventilato r 10/14/18 107 20 92 70 07:35 10/14/18 100 28 126/103 95 [facility] 07:00 (111) l Ventilato r 10/14/18 96 26 124/76 96 [facility] 06:00 (92) l [place] Trach Collar 10/14/18 96 32 100 70 05:43 10/14/18 100 28 130/90 87 [facility] 05:00 (103) l [place] Trach Collar 10/14/18 98.8 93 28 92/59 (70) 97 [facility] 04:00 l [place] Trach Collar 10/14/18 93 04:00 10/14/18 97 23 98 70 03:13 10/14/18 94 23 92/59 (70) 97 [facility] 03:00 l [place] Trach Collar 10/14/18 98.8 101 25 104/80 95 [facility] 02:00 (88) l [place] Trach Collar 10/14/18 96 27 100 70 01:25 10/14/18 95 22 105/67 97 [facility] 01:00 (80) l [place] Trach Collar 10/14/18 99.2 93 22 95/59 (71) 97 [facility] 00:00 l Ventil[place] r 10/14/18 93 00:00 10/13/18 94 26 98 70 23:38 10/13/18 92 21 91/64 (73) 99 [facility] 23:00 l [place] Trach Collar 10/13/18 103 21 129/85 95 [facility] 22:00 (100) l [place] r Trach Collar 10/13/18 110 38 95/70 (78) 96 [facility] 21:00 l [place] r Trach Collar 10/13/18 70 20:00 10/13/18 99.9 117 28 125/85 96 [facility] 20:00 (98) l [place] Trach Collar 10/13/18 117 20:00 10/13/18 103 26 100 70 19:50 10/13/18 116 34 92 70 19:45 10/13/18 121 28 125/87 86 [facility] 19:00 (100) l [place] Trach Collar 10/13/18 110 22 106/83 94 [facility] 18:00 (91) l Ventil[place] r 10/13/18 106 31 94 70 17:30 10/13/18 96 22 102/74 96 [facility] 17:00 (83) l Ventil[place] r 10/13/18 99 16:00 10/13/18 99.1 98 22 93/71 (78) 96 [facility] 16:00 l Ventil[place] r 10/13/18 70 16:00 10/13/18 99 23 99 70 15:23 10/13/18 96 21 93/68 (76) 99 [facility] 15:00 l Ventilato r 10/13/18 104 25 102/77 94 [facility] 14:00 (85) l Ventilato r 10/13/18 99 37 95 80 13:31 10/13/18 95 26 104/79 96 [facility] 13:00 (87) l Ventil[place] r 10/13/18 98.9 94 24 86/70 (75) 97 [facility] 12:00 l Ventil[place] r 10/13/18 94 12:00 10/13/18 80 11:30 10/13/18 108 32 100 90 11:18 10/13/18 102 22 121/77 100 [facility] 11:00 (92) l Ventil[place] r Vital Signs Date Temp Pulse Resp B/P (MAP) Pulse Ox O2 O2 Flow FiO2 Time Delivery Rate 10/16/18 118 24 122/91 97 [facility] 09:00 (101) Ventilator 10/16/18 99.1 08:47 10/16/18 90 08:00 Intake and Output 10/15/18 10/15/18 10/16/18 1414:59 22:59 06:59 IntakeIntake Total 1300 ml 1180 ml 840 ml OutputOutput Total 850 ml 1600 ml 325 ml BalanceBalance 450 ml -420 ml 515 ml Constitutional: non-verbal, frail; No alert, No oriented Neck: other ((+) trach on vent) Respiratory: clear to auscultation, normal air movement Cardiovascular: regular rate and rhythm, nl pulses; No edema, No murmurs/extra sounds, No rub Gastrointestinal: soft, nl liver, spleen, non-tender, bowel sounds; No mass, No rebound or guarding Musculoskeletal: nl extremities to inspection Extremities: normal pulses; No cyanosis, No clubbing, No edema Neurological: unresponsive Additional Comments Bedside Glucose - 72 Hours Test 10/13/18 13:44 10/13/18 20:02 10/14/18 01:53 10/14/18 13:24 Bedside 106 106 135 120 Glucose mg/dL (70-220) mg/dL (70-220) mg/dL (70-220) mg/dL (70-220) Test 10/14/18 20:46 10/15/18 01:32 10/15/18 08:44 10/15/18 13:28 Bedside 181 150 129 149 Glucose mg/dL (70-220) mg/dL (70-220) mg/dL (70-220) mg/dL (70-220) Test 10/15/18 21:00 10/16/18 02:45 10/16/18 08:40 Bedside 168 195 167 Glucose mg/dL (70-220) mg/dL (70-220) mg/dL (70-220) Results Result Diagram: 10/16/18 0512 10/16/18 0512 Results 24hrs Laboratory Tests Test 10/15/18 13:28 10/15/18 21:00 10/16/18 02:45 10/16/18 05:00 Bedside Glucose 149 168 195 Blood Gas Specimen Blood arterial Source Arterial Blood 10/16/2018 4:40:33 Date Drawn AM Arterial Blood pH 7.396 (Temp corrected) Arterial Blood 52.1 H pCO2 (Temp correct) Arterial Blood pO2 151.4 H (Temp corrected) Arterial Blood 31.3 H HCO3 Arterial Blood 5.5 H Base Excess Arterial Blood 98.7 H Oxygen Saturation [place] Test ACCEPTAB Arterial Blood Gas Right Radial Puncture Site Arterial 0.5 Blood Carboxyhemog lobin Arterial Blood 0.3 Methemoglobin Blood Gas A-a O2 436.9 H Differential Oxyhemoglobin 97.9 Percent Blood Gas 37.0 Temperature Blood Gas 20.0 Respiration Rate Blood Gas Actual 24 Respiration Rate Blood Gas Modality VENT - PC FiO2 90.0 Blood Gas Low PEEP 10.0 Setting Blood Gas 20.0 Inspiratory Pressure Blood Gas Notified [facility] [place] RCP Whom Blood Gas Notified 10/16/2018 5:01:04 Time AM Test 10/16/18 05:12 10/16/18 08:40 White Blood Count 27.3 #H Red Blood Count 3.14 L Hemoglobin 9.0 L Hematocrit 28.9 L Mean Corpuscular 92.0 Volume Mean Corpuscular 28.7 L Hemoglobin Mean Corpuscular 31.1 L Hemoglobin Concent Red Cell 17.3 H Distribution Width Platelet Count 476 #H Mean Platelet 10.8 H Volume Immature 4.000 H Granulocytes % Neutrophils % 80.8 H Lymphocytes % 5.9 L Monocytes % 9.0 Eosinophils % 0.0 Basophils % 0.3 Nucleated Red 0.1 H Blood Cells % Immature 1.080 H Granulocytes # Neutrophils # 22.0 H Lymphocytes # 1.6 Monocytes # 2.4 H Eosinophils # 0.0 Basophils # 0.1 Nucleated Red 0.0 Blood Cells # Sodium Level 141 Potassium Level 4.1 Chloride Level 101 Carbon Dioxide 35 H Level Anion Gap 5 Blood Urea 24 H Nitrogen Creatinine 0.56 L Est Glomerular > 60 Filtrat Rate mL/min Glucose Level 139 Lactic Acid Level 0.9 Calcium Level 6.7 L Bedside Glucose 167 Medications Medication Current Medications Acetaminophen (Tylenol Liquid) 650 mg Q4H PRN GTB MILD PAIN(1-3)OR ELEVATED TEMP Last administered on 10/16/18at 07:52; Admin Dose 650 MG; Start 10/09/18 at 14:00 Al Hydrox/Mg Hydrox/Simethicone (Mag-Al Plus) 15 ml Q6H PRN PO GASTROINTESTINAL UPSET; Start 10/09/18 at 14:00 Eye Lubricant (Artificial Tears Oph) 1 drop Q6H PRN BOTH EYES DRY EYES; Start 10/09/18 at 14:00 Bisacodyl (Dulcolax Supp) 10 mg DAILY PRN MI CONSTIPATION; Start 10/09/18 at 14:00 Clonidine (Catapres) 0.1 mg DAILY PRN GTB ELEVATED BLOOD PRESSURE; Start 10/09/18 at 14:00 Diltiazem HCl (Cardizem Iv) 5 mg Q4 PRN IV ELEVATED HEART RATE Last administered on 10/15/18 09:00; Admin Dose 5 MG; Start 10/09/18 at 14:00 Diphenhydramine HCl (Benadryl Liquid Cup) 25 mg Q6 PRN GTB ITCHING; Start 10/09/18 at 14:00 Duloxetine HCl (Cymbalta) 30 mg DAILY PO Last administered on 10/16/18 08:43; Admin Dose 30 MG; Start 10/10/18 at 09:00 Epoetin Arpan (Epogen (Esrd)) 10,000 units TuSa@1300 SC Last administered on 10/15/18 13:20; Admin Dose 10,000 UNITS; Start 10/11/18 at 13:00 Gabapentin (Neurontin Liquid) 400 mg Q8 GTB Last administered on 10/16/18 06:07; Admin Dose 400 MG; Start 10/09/18 at 15:30 Hydralazine HCl (Apresoline) 10 mg Q4H PRN IV ELEVATED BLOOD PRESSURE; Start 10/09/18 at 14:00 Hydromorphone HCl (Dilaudid) 4 mg Q4H PRN PO MODERATE PAIN LEVEL 7-10 Last administered on 10/16/18 08:49; Admin Dose 4 MG; Start 10/09/18 at 14:00 Hydroxychloroquine Sulfate (Plaquenil) 200 mg BID PO Last administered on 10/16/18 08:42; Admin Dose 200 MG; Start 10/09/18 at 21:00 Diagnostic Test (Pha) (Accu-Chek) 1 ea 02 XX Last administered on 10/16/18 02:48; Admin Dose 1 EA; Start 10/10/18 at 02:00 Insulin Aspart (Novolog Insulin Pen) NOVOLOG *CUSTOM* ALGORITHM Q6H SC Last administered on 10/16/18 08:46; Admin Dose 1 UNIT; Start 10/09/18 at 14:00 Lactobacillus Acidophilus (Florajen3 Capsule) 1 each BID GTB Last administered on 10/16/18 08:49; Admin Dose 1 EACH; Start 10/09/18 at 21:00 Lansoprazole (Prevacid) 30 mg BID@06,18 GTB Last administered on 10/16/18 06:07; Admin Dose 30 MG; Start 10/09/18 at 18:00 Levetiracetam (Keppra Liquid) 500 mg BID GTB Last administered on 10/16/18 08:41; Admin Dose 500 MG; Start 10/09/18 at 21:00 Magnesium Oxide (Mag-Ox 400) 400 mg BID GTB Last administered on 10/16/18 08:42; Admin Dose 400 MG; Start 10/09/18 at 21:00 Metoclopramide HCl (Reglan) 10 mg TID IV Last administered on 10/16/18 08:41; Admin Dose 10 MG; Start 10/09/18 at 21:00 Miconazole Nitrate (Miconazole 2% Cr) 1 applic BID TOP Last administered on 10/16/18 08:43; Admin Dose 1 APPLIC; Start 10/09/18 at 21:00 Miconazole Nitrate (Miconazole 2% Cr) 1 applic Q12 PRN TOP rash; Start 10/09/18 at 14:00 Ondansetron HCl (Zofran Inj) 4 mg Q4H PRN IV NAUSEA AND/OR VOMITING Last administered on 10/15/18 22:52; Admin Dose 4 MG; Start 10/09/18 at 14:00 Polyethylene Glycol (Miralax) 17 gm DAILY PRN GTB CONSTIPATION; Start 10/09/18 at 14:00 Senna (Senokot) 2 tab Q8 PRN PO CONSTIPATION; Start 10/09/18 at 14:00 Trimethoprim/ Sulfamethoxazole (Bactrim Susp) 40 ml DAILY GTB Last administered on 10/16/18 08:41; Admin Dose 40 ML; Start 10/10/18 at 09:00 Zolpidem Tartrate (Ambien) 5 mg HS PRN PO INSOMNIA Last administered on 10/16/18 03:48; Admin Dose 5 MG; Start 10/09/18 at 14:00 Miscellaneous Information 1 ea NOTE XX ; Start 10/09/18 at 15:00 Glucose (Glutose) 15 gm Q15M PRN PO DECREASED GLUCOSE; Start 10/09/18 at 15:00 Glucose (Glutose) 22.5 gm Q15M PRN PO DECREASED GLUCOSE; Start 10/09/18 at 15:00 Dextrose (D50w Syringe) 25 ml Q15M PRN IV DECREASED GLUCOSE; Start 10/09/18 at 15:00 Dextrose (D50w Syringe) 50 ml Q15M PRN IV DECREASED GLUCOSE; Start 10/09/18 at 15:00 Glucagon (Glucagen) 1 mg Q15M PRN IM DECREASED GLUCOSE; Start 10/09/18 at 15:00 Glucose (Glutose) 15 gm Q15M PRN BUCCAL DECREASED GLUCOSE; Start 10/09/18 at 15:00 Sodium Chloride 500 ml @ 500 mls/hr Q1H PRN IV BLOOD PRESSURE SUPPORT Last administered on 10/10/18 07:59; Admin Dose 500 MLS/HR; Start 10/09/18 at 19:30 Albuterol (Ventolin Hfa) 4 puff Q6H RESP THERAPY INH Last administered on 10/16/18 08:32; Admin Dose 4 PUFF; Start 10/10/18 at 02:00 Ipratropium Sultana (Atrovent Hfa) 4 puff Q6H RESP THERAPY INH Last administered on 10/16/18 08:32; Admin Dose 4 PUFF; Start 10/10/18 at 02:00 Methylprednisolone Sodium Succinate (Solu-Medrol) 40 mg Q8 IV Last administered on 10/16/18 06:07; Admin Dose 40 MG; Start 10/14/18 at 14:00 Quetiapine Fumarate (Seroquel) 50 mg BID GTB Last administered on 10/16/18 08:42; Admin Dose 50 MG; Start 10/14/18 at 13:30 Lorazepam (Ativan) 1 mg Q4H PRN GTB AGITATION/ANXIETY Last administered on 10/16/18 07:52; Admin Dose 1 MG; Start 10/14/18 at 13:00 Lisinopril (Zestril) 2.5 mg DAILY PO Last administered on 10/16/18 08:41; Admin Dose 2.5 MG; Start 10/15/18 at 09:00 Carvedilol (Coreg) 3.125 mg BID PO Last administered on 10/16/18 08:42; Admin Dose 3.125 MG; Start 10/14/18 at 21:00 Hydromorphone HCl (Dilaudid) 2 mg Q4H PRN PO PAIN LEVEL 4-6; Start 10/14/18 at 17:30 Fentanyl (Duragesic 50 Mcg/Hr Patch) 1 patch Q72H TRANSDERM Last administered on 10/14/18at 20:18; Admin Dose 1 PATCH; Start 10/14/18 at 18:30 VALENTE CHAVEZ MD Oct 16, 2018 10:26
--- NOTE | 2018-10-16 12:36 | CONS ---
Consult Date/Type/Reason Admit Date/Time Oct 09, 2018 at 12:16 Initial Consult Date 10/12/18 Type of Consultation: Pulm/CC Requesting Provider: NOLA VIDAL MD Date/Time of Note DATE: 10/16/18 TIME: 12:29 Subjective No events. Remains on 90%FiO2 on the vent. Objective Vitals Vital Signs Date Temp Pulse Resp B/P (MAP) Pulse Ox O2 O2 Flow FiO2 Time Delivery Rate 10/16/18 108 12:00 10/16/18 24 122/91 97 Mechanical 09:00 (101) Ventilator 10/16/18 99.1 08:47 10/16/18 90 08:00 Intake and Output 10/15/18 10/15/18 10/16/18 1515:00 23:00 07:00 IntakeIntake Total 1200 ml 1180 ml 840 ml OutputOutput Total 1175 ml 1275 ml 250 ml BalanceBalance 25 ml -95 ml 590 ml Exam HEENT: Neck supple; no JVD; no LAD; + trach CVS: RRR, S1 and S2 CHEST: Coarse BS ABD: Soft, NT, + BS EXT: No c/c; + edema Results/Medications Result Diagram: 10/16/18 0512 10/16/18 0512 Results 24 hrs Laboratory Tests Test 10/15/18 13:28 10/15/18 21:00 10/16/18 02:45 10/16/18 05:00 Bedside Glucose 149 168 195 Blood Gas Specimen Blood arterial Source Arterial Blood 10/16/2018 4:40:33 Date Drawn AM Arterial Blood pH 7.396 (Temp corrected) Arterial Blood 52.1 H pCO2 (Temp correct) Arterial Blood pO2 151.4 H (Temp corrected) Arterial Blood 31.3 H HCO3 Arterial Blood 5.5 H Base Excess Arterial Blood 98.7 H Oxygen Saturation [place] Test ACCEPTAB Arterial Blood Gas Right Radial Puncture Site Arterial 0.5 Blood Carboxyhemog lobin Arterial Blood 0.3 Methemoglobin Blood Gas A-a O2 436.9 H Differential Oxyhemoglobin 97.9 Percent Blood Gas 37.0 Temperature Blood Gas 20.0 Respiration Rate Blood Gas Actual 24 Respiration Rate Blood Gas Modality VENT - PC FiO2 90.0 Blood Gas Low PEEP 10.0 Setting Blood Gas 20.0 Inspiratory Pressure Blood Gas Notified [facility] [place] RCP Whom Blood Gas Notified 10/16/2018 5:01:04 Time AM Test 10/16/18 05:12 10/16/18 08:40 White Blood Count 27.3 #H Red Blood Count 3.14 L Hemoglobin 9.0 L Hematocrit 28.9 L Mean Corpuscular 92.0 Volume Mean Corpuscular 28.7 L Hemoglobin Mean Corpuscular 31.1 L Hemoglobin Concent Red Cell 17.3 H Distribution Width Platelet Count 476 #H Mean Platelet 10.8 H Volume Immature 4.000 H Granulocytes % Neutrophils % 80.8 H Lymphocytes % 5.9 L Monocytes % 9.0 Eosinophils % 0.0 Basophils % 0.3 Nucleated Red 0.1 H Blood Cells % Immature 1.080 H Granulocytes # Neutrophils # 22.0 H Lymphocytes # 1.6 Monocytes # 2.4 H Eosinophils # 0.0 Basophils # 0.1 Nucleated Red 0.0 Blood Cells # Sodium Level 141 Potassium Level 4.1 Chloride Level 101 Carbon Dioxide 35 H Level Anion Gap 5 Blood Urea 24 H Nitrogen Creatinine 0.56 L Est Glomerular > 60 Filtrat Rate mL/min Glucose Level 139 Lactic Acid Level 0.9 Calcium Level 6.7 L Bedside Glucose 167 Medications Current Medications Acetaminophen (Tylenol Liquid) 650 mg Q4H PRN GTB MILD PAIN(1-3)OR ELEVATED TEMP Last administered on 10/16/18at 07:52; Admin Dose 650 MG; Start 10/09/18 at 14:00 Al Hydrox/Mg Hydrox/Simethicone (Mag-Al Plus) 15 ml Q6H PRN PO GASTROINTESTINAL UPSET; Start 10/09/18 at 14:00 Eye Lubricant (Artificial Tears Oph) 1 drop Q6H PRN BOTH EYES DRY EYES; Start 10/09/18 at 14:00 Bisacodyl (Dulcolax Supp) 10 mg DAILY PRN [place] CONSTIPATION; Start 10/09/18 at 14:00 Clonidine (Catapres) 0.1 mg DAILY PRN GTB ELEVATED BLOOD PRESSURE; Start 10/09/18 at 14:00 Diltiazem HCl (Cardizem Iv) 5 mg Q4 PRN IV ELEVATED HEART RATE Last administered on 10/15/18at 09:00; Admin Dose 5 MG; Start 10/09/18 at 14:00 Diphenhydramine HCl (Benadryl Liquid Cup) 25 mg Q6 PRN GTB ITCHING; Start 10/09/18 at 14:00 Duloxetine HCl (Cymbalta) 30 mg DAILY PO Last administered on 10/16/18 08:43; Admin Dose 30 MG; Start 10/10/18 at 09:00 Epoetin Arpan (Epogen (Esrd)) 10,000 units TuSa@1300 SC Last administered on 10/15/18 13:20; Admin Dose 10,000 UNITS; Start 10/11/18 at 13:00 Gabapentin (Neurontin Liquid) 400 mg Q8 GTB Last administered on 10/16/18 06:07; Admin Dose 400 MG; Start 10/09/18 at 15:30 Hydralazine HCl (Apresoline) 10 mg Q4H PRN IV ELEVATED BLOOD PRESSURE; Start 10/09/18 at 14:00 Hydromorphone HCl (Dilaudid) 4 mg Q4H PRN PO MODERATE PAIN LEVEL 7-10 Last administered on 10/16/18 08:49; Admin Dose 4 MG; Start 10/09/18 at 14:00 Hydroxychloroquine Sulfate (Plaquenil) 200 mg BID PO Last administered on 10/16/18 08:42; Admin Dose 200 MG; Start 10/09/18 at 21:00 Diagnostic Test (Pha) (Accu-Chek) 1 ea 02 XX Last administered on 10/16/18 02:48; Admin Dose 1 EA; Start 10/10/18 at 02:00 Insulin Aspart (Novolog Insulin Pen) NOVOLOG *CUSTOM* ALGORITHM Q6H SC Last administered on 10/16/18 08:46; Admin Dose 1 UNIT; Start 10/09/18 at 14:00 Lactobacillus Acidophilus (Florajen3 Capsule) 1 each BID GTB Last administered on 10/16/18 08:49; Admin Dose 1 EACH; Start 10/09/18 at 21:00 Lansoprazole (Prevacid) 30 mg BID@,18 GTB Last administered on 10/16/18 06:07; Admin Dose 30 MG; Start 10/09/18 at 18:00 Levetiracetam (Keppra Liquid) 500 mg BID GTB Last administered on 10/16/18 08:41; Admin Dose 500 MG; Start 10/09/18 at 21:00 Magnesium Oxide (Mag-Ox 400) 400 mg BID GTB Last administered on 10/16/18 08:42; Admin Dose 400 MG; Start 10/09/18 at 21:00 Metoclopramide HCl (Reglan) 10 mg TID IV Last administered on 10/16/18 08:41; Admin Dose 10 MG; Start 10/09/18 at 21:00 Miconazole Nitrate (Miconazole 2% Cr) 1 applic BID TOP Last administered on 10/16/18 08:43; Admin Dose 1 APPLIC; Start 10/09/18 at 21:00 Miconazole Nitrate (Miconazole 2% Cr) 1 applic Q12 PRN TOP rash; Start 10/09/18 at 14:00 Ondansetron HCl (Zofran Inj) 4 mg Q4H PRN IV NAUSEA AND/OR VOMITING Last administered on 10/15/18 22:52; Admin Dose 4 MG; Start 10/09/18 at 14:00 Polyethylene Glycol (Miralax) 17 gm DAILY PRN GTB CONSTIPATION; Start 10/09/18 at 14:00 Senna (Senokot) 2 tab Q8 PRN PO CONSTIPATION; Start 10/09/18 at 14:00 Trimethoprim/ Sulfamethoxazole (Bactrim Susp) 40 ml DAILY GTB Last administered on 10/16/18 08:41; Admin Dose 40 ML; Start 10/10/18 at 09:00 Zolpidem Tartrate (Ambien) 5 mg HS PRN PO INSOMNIA Last administered on 10/16/18at 03:48; Admin Dose 5 MG; Start 10/09/18 at 14:00 Miscellaneous Information 1 ea NOTE XX ; Start 10/09/18 at 15:00 Glucose (Glutose) 15 gm Q15M PRN PO DECREASED GLUCOSE; Start 10/09/18 at 15:00 Glucose (Glutose) 22.5 gm Q15M PRN PO DECREASED GLUCOSE; Start 10/09/18 at 15:00 Dextrose (D50w Syringe) 25 ml Q15M PRN IV DECREASED GLUCOSE; Start 10/09/18 at 15:00 Dextrose (D50w Syringe) 50 ml Q15M PRN IV DECREASED GLUCOSE; Start 10/09/18 at 15:00 Glucagon (Glucagen) 1 mg Q15M PRN IM DECREASED GLUCOSE; Start 10/09/18 at 15:00 Glucose (Glutose) 15 gm Q15M PRN BUCCAL DECREASED GLUCOSE; Start 10/09/18 at 15:00 Sodium Chloride 500 ml @ 500 mls/hr Q1H PRN IV BLOOD PRESSURE SUPPORT Last administered on 10/10/18 07:59; Admin Dose 500 MLS/HR; Start 10/09/18 at 19:30 Albuterol (Ventolin Hfa) 4 puff Q6H RESP THERAPY INH Last administered on 10/16/18 08:32; Admin Dose 4 PUFF; Start 10/10/18 at 02:00 Ipratropium [place] (Atrovent Hfa) 4 puff Q6H RESP THERAPY INH Last administ ered on 10/16/18 08:32; Admin Dose 4 PUFF; Start 10/10/18 at 02:00 Methylprednisolone Sodium Succinate (Solu-Medrol) 40 mg Q8 IV Last administered on 10/16/18 06:07; Admin Dose 40 MG; Start 10/14/18 at 14:00 Quetiapine Fumarate (Seroquel) 50 mg BID GTB Last administered on 10/16/18 08:42; Admin Dose 50 MG; Start 10/14/18 at 13:30 Lorazepam (Ativan) 1 mg Q4H PRN GTB AGITATION/ANXIETY Last administered on 10/16/18 07:52; Admin Dose 1 MG; Start 10/14/18 at 13:00 Lisinopril (Zestril) 2.5 mg DAILY PO Last administered on 10/16/18 08:41; Admin Dose 2.5 MG; Start 10/15/18 at 09:00 Carvedilol (Coreg) 3.125 mg BID PO Last administered on 10/16/18 08:42; Admin Dose 3.125 MG; Start 10/14/18 at 21:00 Hydromorphone HCl (Dilaudid) 2 mg Q4H PRN PO PAIN LEVEL 4-6; Start 10/14/18 at 17:30 Fentanyl (Duragesic 50 Mcg/Hr Patch) 1 patch Q72H TRANSDERM Last administered on 10/14/18 20:18; Admin Dose 1 PATCH; Start 10/14/18 at 18:30 Linagliptin (Tradjenta) 5 mg DAILY PO ; Start 10/16/18 at 10:30 Calcium Carbonate (Ca Carbonate) 1,250 mg BID GTB ; Start 10/16/18 at 12:00 Assessment/Plan Assessment/Plan (Daily) IMP: 1. Acute on chronic hypoxemic respiratory failure with underlying acute respiratory distress syndrome. 2. History of HSV esophagitis. 3. Chronic sepsis. 4. History of rheumatoid arthritis. 5. C-spine disease with functional quadriplegia. 6. Dysphagia with G-tube. PLAN: 1. Continue bronchodilators 2. Pressure control ventilation with delta P of 20 cm H20 and PEEP 10 cm H20; may lower FiO2 to maintain PaO2 55- 60 3. Obtain ABG daily 4. Bronchodilator treatment. 5. Deep vein thrombosis and gastrointestinal prophylaxis. 6. Check stool c.diff 7. Non-con CT chest Critical care 40 minutes. YOLETTE REYNOLDS MD Oct 16, 2018 12:36
[2018-10-16] MEDS: CA CARBONATE (250 MG/ML) 5ML CUP GTB SCH ×2 (12:57→21:12)
[2018-10-16] MEDS: LINAGLIPTIN 5 MG TABLET PO SCH (13:01)
--- NOTE | 2018-10-16 14:55 | CONS ---
Consult Date/Type/Reason Admit Date/Time Oct 09, 2018 at 12:16 Initial Consult Date 10/09/18 Type of Consultation: Pulm/CC Requesting Provider: NOLA VIDAL MD Date/Time of Note DATE: 10/16/18 TIME: 14:54 Subjective NO acute events - pt stable - no CP - BP well controlled. ROS: No fever, no chills, no nausea, no vomiting, no diarrhea/constipation No recent weight changes No chest pain, no PND, no orthopnea - chronic SOB No dizziness, blurred vision No thirst, no heat or cold intolerance Objective Vitals Vital Signs Date Temp Pulse Resp B/P (MAP) Pulse Ox O2 O2 Flow FiO2 Time Delivery Rate 10/16/18 108 12:00 10/16/18 24 122/91 97 Mechanical 09:00 (101) Ventilator 10/16/18 99.1 08:47 10/16/18 90 08:00 Intake and Output 10/15/18 10/15/18 10/16/18 1515:00 23:00 07:00 IntakeIntake Total 1200 ml 1180 ml 840 ml OutputOutput Total 1175 ml 1275 ml 250 ml BalanceBalance 25 ml -95 ml 590 ml Exam General: WN/WD/NAD, AOx 3 HEENT: Unicetric/atraumatic/EOMI (does not follow commands) NECK: trach Lymph: no lymphadenopathy HEART: regular with no S3, II/ systolic murmur at apex LUNGS: Coarse sounds ABD: soft, NT, ND, +BS : Intact Neuro: non focal SKIN: chronic changes EXT: trace edema Results/Medications Result Diagram: 10/16/1812 10/16/18 0512 Results 24 hrs Laboratory Tests Test 10/15/18 21:00 10/16/18 02:45 10/16/18 05:00 10/16/18 05:12 Bedside Glucose 168 195 Blood Gas Specimen Blood arterial Source Arterial Blood 10/16/2018 4:40:33 Date Drawn AM Arterial Blood pH 7.396 (Temp corrected) Arterial Blood 52.1 H pCO2 (Temp correct) Arterial Blood pO2 151.4 H (Temp corrected) Arterial Blood 31.3 H HCO3 Arterial Blood 5.5 H Base Excess Arterial Blood 98.7 H Oxygen Saturation [place] Test ACCEPTAB Arterial Blood Gas Right Radial Puncture Site Arterial 0.5 Blood Carboxyhemog lobin Arterial Blood 0.3 Methemoglobin Blood Gas A-a O2 436.9 H Differential Oxyhemoglobin 97.9 Percent Blood Gas 37.0 Temperature Blood Gas 20.0 Respiration Rate Blood Gas Actual 24 Respiration Rate Blood Gas Modality VENT - PC FiO2 90.0 Blood Gas Low PEEP 10.0 Setting Blood Gas 20.0 Inspiratory Pressure Blood Gas Notified [facility] [place] RCP Whom Blood Gas Notified 10/16/2018 5:01:04 Time AM White Blood Count 27.3 #H Red Blood Count 3.14 L Hemoglobin 9.0 L Hematocrit 28.9 L Mean Corpuscular 92.0 Volume Mean Corpuscular 28.7 L Hemoglobin Mean Corpuscular 31.1 L Hemoglobin Concent Red Cell 17.3 H Distribution Width Platelet Count 476 #H Mean Platelet 10.8 H Volume Immature 4.000 H Granulocytes % Neutrophils % 80.8 H Lymphocytes % 5.9 L Monocytes % 9.0 Eosinophils % 0.0 Basophils % 0.3 Nucleated Red 0.1 H Blood Cells % Immature 1.080 H Granulocytes # Neutrophils # 22.0 H Lymphocytes # 1.6 Monocytes # 2.4 H Eosinophils # 0.0 Basophils # 0.1 Nucleated Red 0.0 Blood Cells # Sodium Level 141 Potassium Level 4.1 Chloride Level 101 Carbon Dioxide 35 H Level Anion Gap 5 Blood Urea 24 H Nitrogen Creatinine 0.56 L Est Glomerular > 60 Filtrat Rate mL/min Glucose Level 139 Lactic Acid Level 0.9 Calcium Level 6.7 L Test 10/16/18 08:40 Bedside Glucose 167 Medications Current Medications Acetaminophen (Tylenol Liquid) 650 mg Q4H PRN GTB MILD PAIN(1-3)OR ELEVATED TEMP Last administered on 10/16/18at 07:52; Admin Dose 650 MG; Start 10/09/18 at 14:00 Al Hydrox/Mg Hydrox/Simethicone (Mag-Al Plus) 15 ml Q6H PRN PO GASTROINTESTINAL UPSET; Start 10/09/18 at 14:00 Eye Lubricant (Artificial Tears Oph) 1 drop Q6H PRN BOTH EYES DRY EYES; Start 10/09/18 at 14:00 Bisacodyl (Dulcolax Supp) 10 mg DAILY PRN [place] CONSTIPATION; Start 10/09/18 at 14:00 Clonidine (Catapres) 0.1 mg DAILY PRN GTB ELEVATED BLOOD PRESSURE; Start 10/09/18 at 14:00 Diltiazem HCl (Cardizem Iv) 5 mg Q4 PRN IV ELEVATED HEART RATE Last administered on 10/15/18 09:00; Admin Dose 5 MG; Start 10/09/18 at 14:00 Diphenhydramine HCl (Benadryl Liquid Cup) 25 mg Q6 PRN GTB ITCHING; Start 10/09/18 at 14:00 Duloxetine HCl (Cymbalta) 30 mg DAILY PO Last administered on 10/16/18 08:43; Admin Dose 30 MG; Start 10/10/18 at 09:00 Epoetin Arpan (Epogen (Esrd)) 10,000 units TuSa@1300 SC Last administered on 13:20; Admin Dose 10,000 UNITS; Start 10/11/18 at 13:00 Gabapentin (Neurontin Liquid) 400 mg Q8 GTB Last administered on 10/16/18 14:46; Admin Dose 400 MG; Start 10/09/18 at 15:30 Hydralazine HCl (Apresoline) 10 mg Q4H PRN IV ELEVATED BLOOD PRESSURE; Start 10/09/18 at 14:00 Hydromorphone HCl (Dilaudid) 4 mg Q4H PRN PO MODERATE PAIN LEVEL 7-10 Last administered on 10/16/18 12:57; Admin Dose 4 MG; Start 10/09/18 at 14:00 Hydroxychloroquine Sulfate (Plaquenil) 200 mg BID PO Last administered on 10/16/18 08:42; Admin Dose 200 MG; Start 10/09/18 at 21:00 Diagnostic Test (Pha) (Accu-Chek) 1 ea 02 XX Last administered on 10/16/18 02:48; Admin Dose 1 EA; Start 10/10/18 at 02:00 Insulin Aspart (Novolog Insulin Pen) NOVOLOG *CUSTOM* ALGORITHM Q6H SC Last administered on 10/16/18 08:46; Admin Dose 1 UNIT; Start 10/09/18 at 14:00 Lactobacillus Acidophilus (Florajen3 Capsule) 1 each BID GTB Last administered on 10/16/18 08:49; Admin Dose 1 EACH; Start 10/09/18 at 21:00 Lansoprazole (Prevacid) 30 mg BID@06,18 GTB Last administered on 10/16/18 06:07; Admin Dose 30 MG; Start 10/09/18 at 18:00 Levetiracetam (Keppra Liquid) 500 mg BID GTB Last administered on 10/16/18 08:41; Admin Dose 500 MG; Start 10/09/18 at 21:00 Magnesium Oxide (Mag-Ox 400) 400 mg BID GTB Last administered on 10/16/18 08:42; Admin Dose 400 MG; Start 10/09/18 at 21:00 Metoclopramide HCl (Reglan) 10 mg TID IV Last administered on 10/16/18 12:57; Admin Dose 10 MG; Start 10/09/18 at 21:00 Miconazole Nitrate (Miconazole 2% Cr) 1 applic BID TOP Last administered on 10/16/18 08:43; Admin Dose 1 APPLIC; Start 10/09/18 at 21:00 Miconazole Nitrate (Miconazole 2% Cr) 1 applic Q12 PRN TOP rash; Start 10/09/18 at 14:00 Ondansetron HCl (Zofran Inj) 4 mg Q4H PRN IV NAUSEA AND/OR VOMITING Last administered on 10/15/18 22:52; Admin Dose 4 MG; Start 10/09/18 at 14:00 Polyethylene Glycol (Miralax) 17 gm DAILY PRN GTB CONSTIPATION; Start 10/09/18 at 14:00 Senna (Senokot) 2 tab Q8 PRN PO CONSTIPATION; Start 10/09/18 at 14:00 Trimethoprim/ Sulfamethoxazole (Bactrim Susp) 40 ml DAILY GTB Last administered on 10/16/18 08:41; Admin Dose 40 ML; Start 10/10/18 at 09:00 Zolpidem Tartrate (Ambien) 5 mg HS PRN PO INSOMNIA Last administered on 10/16/18 03:48; Admin Dose 5 MG; Start 10/09/18 at 14:00 Miscellaneous Information 1 ea NOTE XX ; Start 10/09/18 at 15:00 Glucose (Glutose) 15 gm Q15M PRN PO DECREASED GLUCOSE; Start 10/09/18 at 15:00 Glucose (Glutose) 22.5 gm Q15M PRN PO DECREASED GLUCOSE; Start 10/09/18 at 15:00 Dextrose (D50w Syringe) 25 ml Q15M PRN IV DECREASED GLUCOSE; Start 10/09/18 at 15:00 Dextrose (D50w Syringe) 50 ml Q15M PRN IV DECREASED GLUCOSE; Start 10/09/18 at 15:00 Glucagon (Glucagen) 1 mg Q15M PRN IM DECREASED GLUCOSE; Start 10/09/18 at 15:00 Glucose (Glutose) 15 gm Q15M PRN BUCCAL DECREASED GLUCOSE; Start 10/09/18 at 15:00 Sodium Chloride 500 ml @ 500 mls/hr Q1H PRN IV BLOOD PRESSURE SUPPORT Last administered on 10/10/18 07:59; Admin Dose 500 MLS/HR; Start 10/09/18 at 19:30 Albuterol (Ventolin Hfa) 4 puff Q6H RESP THERAPY INH Last administered on 10/16/18 08:32; Admin Dose 4 PUFF; Start 10/10/18 at 02:00 Ipratropium [place] (Atrovent Hfa) 4 puff Q6H RESP THERAPY INH Last administered on 10/16/18 08:32; Admin Dose 4 PUFF; Start 10/10/18 at 02:00 Methylprednisolone Sodium Succinate (Solu-Medrol) 40 mg Q8 IV Last administered on 10/16/18 14:46; Admin Dose 40 MG; Start 10/14/18 at 14:00 Quetiapine Fumarate (Seroquel) 50 mg BID GTB Last administered on 10/16/18 08:42; Admin Dose 50 MG; Start 10/14/18 at 13:30 Lorazepam (Ativan) 1 mg Q4H PRN GTB AGITATION/ANXIETY Last administered on 10/16/18 12:57; Admin Dose 1 MG; Start 10/14/18 at 13:00 Lisinopril (Zestril) 2.5 mg DAILY PO Last administered on 10/16/18 08:41; Admin Dose 2.5 MG; Start 10/15/18 at 09:00 Carvedilol (Coreg) 3.125 mg BID PO Last administered on 10/16/18 08:42; Admin Dose 3.125 MG; Start 10/14/18 at 21:00 Hydromorphone HCl (Dilaudid) 2 mg Q4H PRN PO PAIN LEVEL 4-6; Start 10/14/18 at 17:30 Fentanyl (Duragesic 50 Mcg/Hr Patch) 1 patch Q72H TRANSDERM Last administered on 10/14/18at 20:18; Admin Dose 1 PATCH; Start 10/14/18 at 18:30 Linagliptin (Tradjenta) 5 mg DAILY PO Last administered on 10/16/18at 13:01; Admin Dose 5 MG; Start 10/16/18 at 10:30 Calcium Carbonate (Ca Carbonate) 1,250 mg BID GTB Last administered on 10/16/18at 12:57; Admin Dose 1,250 MG; Start 10/16/18 at 12:00 Assessment/Plan Hospital Course (Demo Recall) 1. Tachycardia at this time in the setting of fevers and respiratory distress, most consistent with sinus tachycardia likely driving this process - better now, con't supportive Rx and pain management. BETTER now. 2. Hypertension with borderline hypotension at this time. -still borderline Hotn - no focal symptoms. Will monitor now. In good range. 3. Abnormal electrocardiogram at baseline. 4. Chronic respiratory failure, status post tracheostomy.-weaning vent support - con't resp Rx. Con;t resp Rx. 5. Dysphagia, status post G-tube. 6. Quadriplegia- skin care in palce. NO change. 7. Renal insufficiency, on steroids- Cr 0.97 now. Stable. 8. Chronic obstructive pulmonary disease - con't resp Rx per pulmonary team. 9. Rheumatoid arthritis. 10. Chronic kidney disease. 11. Diabetes mellitus- on meds. VANESSA COOPER MD Oct 16, 2018 14:55
[2018-10-16] MEDS: DILTIAZEM 25 MG INJ IV PRN ×2 (15:37→21:41)
[2018-10-16] MEDS: DIPHENHYDRAMINE 2.5 MG/ML 5ML CUP GTB PRN (15:55)
--- NOTE | 2018-10-16 16:50 | CONS ---
Assessment/Plan Assessment/Plan Hospital Course (Demo Recall) Interval hx: No acute events, stable, Tolerating tube feeds. C diff negative. Rectal tube with brown liquid stool. 1. Respiratory failure secondary to pneumonia versus interstitial pneumonitis from rheumatoid arthritis versus mild aspiration. 2. Severe rheumatoid arthritis. On steroids 3. Quadriplegia. 4. Adrenal insufficiency. 5. Gastroparesis. 6. Hypothyroidism. 7. Chronic pain syndrome. 8. Hypertension. 9. Diarrhea-rectal tube 10. History of esophagitis PLAN: Patient's tube feeding increased to 55 cc/h and is tolerating it, no residues Continue Reglan and PPI Aspiration precautions Pt examined and plan of care discussed with Dr. Minaya Consultation Date/Type/Reason Admit Date/Time Oct 09, 2018 at 12:16 Initial Consult Date 10/12/18 Requesting Provider: NOLA VIDAL MD Date/Time of Note DATE: 10/16/18 TIME: 16:45 Exam/Review of Systems Exam Vitals Vital Signs Date Temp Pulse Resp B/P (MAP) Pulse Ox O2 O2 Flow FiO2 Time Delivery Rate 10/16/18 109 22 94 70 15:00 10/16/18 124/88 Mechanical 15:00 (100) Ventilator 10/16/18 99.4 12:00 Intake and Output 10/15/18 10/15/18 10/16/18 1515:00 23:00 07:00 IntakeIntake Total 1200 ml 1180 ml 840 ml OutputOutput Total 1175 ml 1275 ml 250 ml BalanceBalance 25 ml -95 ml 590 ml Constitutional: alert Psych: no complaints Head: normocephalic, atraumatic Eyes: nl conjunctiva Neck: supple (Trach), other Respiratory: other (coarse) Cardiovascular: systolic murmur Gastrointestinal: soft, non-tender Extremities: edema (trace to BLE) Results Result Diagram: 10/16/18 0512 10/16/18 0512 Results 24hrs Laboratory Tests Test 10/15/18 21:00 10/16/18 02:45 10/16/18 05:00 10/16/18 05:12 Bedside Glucose 168 195 Blood Gas Specimen Blood arterial Source Arterial Blood 10/16/2018 4:40:33 Date Drawn AM Arterial Blood pH 7.396 (Temp corrected) Arterial Blood 52.1 H pCO2 (Temp correct) Arterial Blood pO2 151.4 H (Temp corrected) Arterial Blood 31.3 H HCO3 Arterial Blood 5.5 H Base Excess Arterial Blood 98.7 H Oxygen Saturation [place] Test ACCEPTAB Arterial Blood Gas Right Radial Puncture Site Arterial 0.5 Blood Carboxyhemog lobin Arterial Blood 0.3 Methemoglobin Blood Gas A-a O2 436.9 H Differential Oxyhemoglobin 97.9 Percent Blood Gas 37.0 Temperature Blood Gas 20.0 Respiration Rate Blood Gas Actual 24 Respiration Rate Blood Gas Modality VENT - PC FiO2 90.0 Blood Gas Low PEEP 10.0 Setting Blood Gas 20.0 Inspiratory Pressure Blood Gas Notified Neo [place] RCP Whom Blood Gas Notified 10/16/2018 5:01:04 Time AM White Blood Count 27.3 #H Red Blood Count 3.14 L Hemoglobin 9.0 L Hematocrit 28.9 L Mean Corpuscular 92.0 Volume Mean Corpuscular 28.7 L Hemoglobin Mean Corpuscular 31.1 L Hemoglobin Concent Red Cell 17.3 H Distribution Width Platelet Count 476 #H Mean Platelet 10.8 H Volume Immature 4.000 H Granulocytes % Neutrophils % 80.8 H Lymphocytes % 5.9 L Monocytes % 9.0 Eosinophils % 0.0 Basophils % 0.3 Nucleated Red 0.1 H Blood Cells % Immature 1.080 H Granulocytes # Neutrophils # 22.0 H Lymphocytes # 1.6 Monocytes # 2.4 H Eosinophils # 0.0 Basophils # 0.1 Nucleated Red 0.0 Blood Cells # Sodium Level 141 Potassium Level 4.1 Chloride Level 101 Carbon Dioxide 35 H Level Anion Gap 5 Blood Urea 24 H Nitrogen Creatinine 0.56 L Est Glomerular > 60 Filtrat Rate mL/min Glucose Level 139 Lactic Acid Level 0.9 Calcium Level 6.7 L Test 10/16/18 08:40 10/16/18 14:53 Bedside Glucose 167 148 Medications Medication Current Medications Acetaminophen (Tylenol Liquid) 650 mg Q4H PRN GTB MILD PAIN(1-3)OR ELEVATED TEMP Last administered on 10/16/18at 07:52; Admin Dose 650 MG; Start 10/09/18 at 14:00 Al Hydrox/Mg Hydrox/Simethicone (Mag-Al Plus) 15 ml Q6H PRN PO GASTROINTESTINAL UPSET; Start 10/09/18 at 14:00 Eye Lubricant (Artificial Tears Oph) 1 drop Q6H PRN BOTH EYES DRY EYES; Start 10/09/18 at 14:00 Bisacodyl (Dulcolax Supp) 10 mg DAILY PRN [place] CONSTIPATION; Start 10/09/18 at 14:00 Clonidine (Catapres) 0.1 mg DAILY PRN GTB ELEVATED BLOOD PRESSURE; Start at 14:00 Diltiazem HCl (Cardizem Iv) 5 mg Q4 PRN IV ELEVATED HEART RATE Last administered on 10/16/18 15:37; Admin Dose 5 MG; Start 10/09/18 at 14:00 Diphenhydramine HCl (Benadryl Liquid Cup) 25 mg Q6 PRN GTB ITCHING Last administered on 10/16/18 15:55; Admin Dose 25 MG; Start 10/09/18 at 14:00 Duloxetine HCl (Cymbalta) 30 mg DAILY PO Last administered on 10/16/18 08:43; Admin Dose 30 MG; Start 10/10/18 at 09:00 Epoetin Arpan (Epogen (Esrd)) 10,000 units TuSa@1300 SC Last administered on 13:20; Admin Dose 10,000 UNITS; Start 10/11/18 at 13:00 Gabapentin (Neurontin Liquid) 400 mg Q8 GTB Last administered on 10/16/18 14:46; Admin Dose 400 MG; Start 10/09/18 at 15:30 Hydralazine HCl (Apresoline) 10 mg Q4H PRN IV ELEVATED BLOOD PRESSURE; Start 10/09/18 at 14:00 Hydromorphone HCl (Dilaudid) 4 mg Q4H PRN PO MODERATE PAIN LEVEL 7-10 Last administered on 10/16/18 12:57; Admin Dose 4 MG; Start 10/09/18 at 14:00 Hydroxychloroquine Sulfate (Plaquenil) 200 mg BID PO Last administered on 10/16/18 08:42; Admin Dose 200 MG; Start 10/09/18 at 21:00 Diagnostic Test (Pha) (Accu-Chek) 1 ea 02 XX Last administered on 10/16/18 02:48; Admin Dose 1 EA; Start 10/10/18 at 02:00 Insulin Aspart (Novolog Insulin Pen) NOVOLOG *CUSTOM* ALGORITHM Q6H SC Last administered on 10/16/18 08:46; Admin Dose 1 UNIT; Start 10/09/18 at 14:00 Lactobacillus Acidophilus (Florajen3 Capsule) 1 each BID GTB Last administered on 10/16/18 08:49; Admin Dose 1 EACH; Start 10/09/18 at 21:00 Lansoprazole (Prevacid) 30 mg BID@06,18 GTB Last administered on 10/16/18 06:07; Admin Dose 30 MG; Start 10/09/18 at 18:00 Levetiracetam (Keppra Liquid) 500 mg BID GTB Last administered on 10/16/18 08:41; Admin Dose 500 MG; Start 10/09/18 at 21:00 Magnesium Oxide (Mag-Ox 400) 400 mg BID GTB Last administered on 10/16/18 08:42; Admin Dose 400 MG; Start 10/09/18 at 21:00 Metoclopramide HCl (Reglan) 10 mg TID IV Last administered on 10/16/18 12:57; Admin Dose 10 MG; Start 10/09/18 at 21:00 Miconazole Nitrate (Miconazole 2% Cr) 1 applic BID TOP Last administered on 10/16/18 08:43; Admin Dose 1 APPLIC; Start 10/09/18 at 21:00 Miconazole Nitrate (Miconazole 2% Cr) 1 applic Q12 PRN TOP rash; Start 10/09/18 at 14:00 Ondansetron HCl (Zofran Inj) 4 mg Q4H PRN IV NAUSEA AND/OR VOMITING Last administered on 10/15/18 22:52; Admin Dose 4 MG; Start 10/09/18 at 14:00 Polyethylene Glycol (Miralax) 17 gm DAILY PRN GTB CONSTIPATION; Start 10/09/18 at 14:00 Senna (Senokot) 2 tab Q8 PRN PO CONSTIPATION; Start 10/09/18 at 14:00 Trimethoprim/ Sulfamethoxazole (Bactrim Susp) 40 ml DAILY GTB Last administered on 10/16/18 08:41; Admin Dose 40 ML; Start 10/10/18 at 09:00 Zolpidem Tartrate (Ambien) 5 mg HS PRN PO INSOMNIA Last administered on 10/16/18 03:48; Admin Dose 5 MG; Start 10/09/18 at 14:00 Miscellaneous Information 1 ea NOTE XX ; Start 10/09/18 at 15:00 Glucose (Glutose) 15 gm Q15M PRN PO DECREASED GLUCOSE; Start 10/09/18 at 15:00 Glucose (Glutose) 22.5 gm Q15M PRN PO DECREASED GLUCOSE; Start 10/09/18 at 15:00 Dextrose (D50w Syringe) 25 ml Q15M PRN IV DECREASED GLUCOSE; Start 10/09/18 at 15:00 Dextrose (D50w Syringe) 50 ml Q15M PRN IV DECREASED GLUCOSE; Start 10/09/18 at 15:00 Glucagon (Glucagen) 1 mg Q15M PRN IM DECREASED GLUCOSE; Start 10/09/18 at 15:00 Glucose (Glutose) 15 gm Q15M PRN BUCCAL DECREASED GLUCOSE; Start 10/09/18 at 15:00 Sodium Chloride 500 ml @ 500 mls/hr Q1H PRN IV BLOOD PRESSURE SUPPORT Last administered on 10/10/18 07:59; Admin Dose 500 MLS/HR; Start 10/09/18 at 19:30 Albuterol (Ventolin Hfa) 4 puff Q6H RESP THERAPY INH Last administered on 10/16/18 14:50; Admin Dose 4 PUFF; Start 10/10/18 at 02:00 Ipratropium [place] (Atrovent Hfa) 4 puff Q6H RESP THERAPY INH Last administered on 10/16/18 14:50; Admin Dose 4 PUFF; Start 10/10/18 at 02:00 Methylprednisolone Sodium Succinate (Solu-Medrol) 40 mg Q8 IV Last administered on 10/16/18 14:46; Admin Dose 40 MG; Start 10/14/18 at 14:00 Quetiapine Fumarate (Seroquel) 50 mg BID GTB Last administered on 10/16/18 08:42; Admin Dose 50 MG; Start 10/14/18 at 13:30 Lorazepam (Ativan) 1 mg Q4H PRN GTB AGITATION/ANXIETY Last administered on 10/16/18 12:57; Admin Dose 1 MG; Start 10/14/18 at 13:00 Lisinopril (Zestril) 2.5 mg DAILY PO Last administered on 10/16/18 08:41; Admin Dose 2.5 MG; Start 10/15/18 at 09:00 Carvedilol (Coreg) 3.125 mg BID PO Last administered on 10/16/18at 08:42; Admin Dose 3.125 MG; Start 10/14/18 at 21:00 Hydromorphone HCl (Dilaudid) 2 mg Q4H PRN PO PAIN LEVEL 4-6; Start 10/14/18 at 1 7:30 Fentanyl (Duragesic 50 Mcg/Hr Patch) 1 patch Q72H TRANSDERM Last administered on 10/14/18at 20:18; Admin Dose 1 PATCH; Start 10/14/18 at 18:30 Linagliptin (Tradjenta) 5 mg DAILY PO Last administered on 10/16/18at 13:01; Admin Dose 5 MG; Start 10/16/18 at 10:30 Calcium Carbonate (Ca Carbonate) 1,250 mg BID GTB Last administered on 10/16/18at 12:57; Admin Dose 1,250 MG; Start 10/16/18 at 12:00 CLAU MORRISSEY NP Oct 16, 2018 16:50
[2018-10-16] MEDS: ONDANSETRON 4 MG INJ IV PRN (21:31)
--- NOTE | 2018-10-16 22:18 | CONS ---
Assessment/Plan Assessment/Plan Hospital Course (Demo Recall) # sepsis, respiratory - recurrent sepsis on 10/08/2018 due to aspiration pneumonia, HCAP - possible aspiration pneumonia, recurrent pneumonia due to citrobacter - acute on chronic hypoxic and hypercarbic respiratory failure - persistent leukocytosis likely due to steroid margination - h/o tracheostomy on 08/26/2018 - h/o "Increased mild left apical pneumothorax" per CXR on 09/19/2018; no pneumot horax mentioned on subsequent CXR - h/o pneumomediastinum - h/o VAT on 08/11/2018 - h/o asthma/COPD exacerbation - h/o acute tracheobronchitis - h/o MAC infection but CT chest did not demonstrate features suggestive of this per chart review - h/o HCAP due to citrobacter, based on resp culture on 09/13/2018 - h/o aspergillus growing out of resp culture per (pulm note by Dr. Lopez) on 07/25/2018 - h/o elevated 1,3 [id number] level = 232 on 08/06/2018 - h/o MSSA septicemia # GI - diarrhea, C diff on 10/09/2018 was negative - h/o HSV esophagitis, took acyclovir x21 days from 08/26/2018 - h/o EGD, esophageal biopsy showed esophageal squamous mucosa showing acute inflammation, granulation tissue, and ulceration consistent with ulcerative esophagitis, rare multinucleated cells with morphology suggestive of vial cytopathic changes, No cardiac mucosa, intestinal metaplasia, dysplasia, or malignancy defined - GERD - PUD # renal/ - Hypokalemia, recurrent - CKD 2 - BPH # cardiac - tachycardia, persistent - ACD - HTN - HLD # endo - T2DM - Hgb A1c 7.2% - secondary adrenal insufficiency; steroid dependent - Hypoparathyroidism - Hypercalcemia - Pamidronate was ordered # neuro - toxic metabolic encephalopathy - Cervical myopathy - Severe cervical spinal cord stenosis with cord compression from C3-C5, s/p laminectomy in ~03/2018 - Chronic pain syndrome - Functional quadriplegia - Seizure d/o # other chronic conditions - RA with chronic steroid dependence - Immunocompromised status - Fibromyalgia rheumatica - DDD - H/o multiple rib fracture - Pt completed: meropenem (09/25/2018-10/02/2018), vancomycin (09/25/18-09/28/18), pip/tazo (10/09/2018-10/15/2018) recommendations - continue Bactrim for pneumocystis PPX - continue to monitor off other systemic antibiotic the critical care time I took to care for this Pt today was from 2144 to 2214 Consultation Date/Type/Reason Admit Date/Time Oct 09, 2018 at 12:16 Initial Consult Date 10/09/18 Type of Consult ID Requesting Provider: NOLA VIDAL MD Date/Time of Note DATE: 10/16/18 TIME: 22:16 24 HR Interval Summary Subjective hx not possible: pt non-verbal, pt critical, pt critical status Exam/Review of Systems Exam Vitals Vital Signs Date Temp Pulse Resp B/P (MAP) Pulse Ox O2 O2 Flow FiO2 Time Delivery Rate 10/16/18 115 20:00 10/16/18 99/71 (80) 97 Mechanical 19:00 Ventilator 10/16/18 80 17:50 10/16/18 99.4 16:00 Intake and Output 10/15/18 10/15/18 10/16/18 1515:00 23:00 07:00 IntakeIntake Total 1200 ml 1180 ml 840 ml OutputOutput Total 1175 ml 1275 ml 250 ml BalanceBalance 25 ml -95 ml 590 ml Constitutional: non-verbal, frail Psych: no complaints, nl mood/affect Head: normocephalic, atraumatic Eyes: nl conjunctiva, nl lids, nl sclera ENMT: nl external ears & nose, nl nasal mucosa & septum, mucosa pink and moist Neck: other (trach) Respiratory: normal air movement, diminished breath sounds Cardiovascular: regular rate and rhythm, nl pulses; No edema Gastrointestinal: soft, non-tender, other (rectal tube) Genitourinary - Male: nl penis, nl scrotum Musculoskeletal: nl extremities to inspection Extremities: No edema Neurological: lethargic Skin: rash or lesions (stage II coccygeal ulcers without purulence or slough) Results Result Diagram: 10/16/1851110/16/18511 Results 24hrs Laboratory Tests Test 10/16/18 02:45 10/16/18 05:00 10/16/18 05:12 10/16/18 08:40 Bedside Glucose 195 167 Blood Gas Specimen Blood arterial Source Arterial Blood 10/16/2018 4:40:33 Date Drawn AM Arterial Blood pH 7.396 (Temp corrected) Arterial Blood 52.1 H pCO2 (Temp correct) Arterial Blood pO2 151.4 H (Temp corrected) Arterial Blood 31.3 H HCO3 Arterial Blood 5.5 H Base Excess Arterial Blood 98.7 H Oxygen Saturation [place] Test ACCEPTAB Arterial Blood Gas Right Radial Puncture Site Arterial 0.5 Blood Carboxyhemog lobin Arterial Blood 0.3 Methemoglobin Blood Gas A-a O2 436.9 H Differential Oxyhemoglobin 97.9 Percent Blood Gas 37.0 Temperature Blood Gas 20.0 Respiration Rate Blood Gas Actual 24 Respiration Rate Blood Gas Modality VENT - PC FiO2 90.0 Blood Gas Low PEEP 10.0 Setting Blood Gas 20.0 Inspiratory Pressure Blood Gas Notified Neo [place] RCP Whom Blood Gas Notified 10/16/2018 5:01:04 Time AM White Blood Count 27.3 #H Red Blood Count 3.14 L Hemoglobin 9.0 L Hematocrit 28.9 L Mean Corpuscular 92.0 Volume Mean Corpuscular 28.7 L Hemoglobin Mean Corpuscular 31.1 L Hemoglobin Concent Red Cell 17.3 H Distribution Width Platelet Count 476 #H Mean Platelet 10.8 H Volume Immature 4.000 H Granulocytes % Neutrophils % 80.8 H Lymphocytes % 5.9 L Monocytes % 9.0 Eosinophils % 0.0 Basophils % 0.3 Nucleated Red 0.1 H Blood Cells % Immature 1.080 H Granulocytes # Neutrophils # 22.0 H Lymphocytes # 1.6 Monocytes # 2.4 H Eosinophils # 0.0 Basophils # 0.1 Nucleated Red 0.0 Blood Cells # Sodium Level 141 Potassium Level 4.1 Chloride Level 101 Carbon Dioxide 35 H Level Anion Gap 5 Blood Urea 24 H Nitrogen Creatinine 0.56 L Est Glomerular > 60 Filtrat Rate mL/min Glucose Level 139 Lactic Acid Level 0.9 Calcium Level 6.7 L Test 10/16/18 14:53 10/16/18 21:03 Bedside Glucose 148 156 Medications Medication Current Medications Acetaminophen (Tylenol Liquid) 650 mg Q4H PRN GTB MILD PAIN(1-3)OR ELEVATED TEMP Last administered on 10/16/18at 07:52; Admin Dose 650 MG; Start 10/09/18 at 14:00 Al Hydrox/Mg Hydrox/Simethicone (Mag-Al Plus) 15 ml Q6H PRN PO GASTROINTESTINAL UPSET; Start 10/09/18 at 14:00 Eye Lubricant (Artificial Tears Oph) 1 drop Q6H PRN BOTH EYES DRY EYES; Start 10/09/18 at 14:00 Bisacodyl (Dulcolax Supp) 10 mg DAILY PRN [place] CONSTIPATION; Start 10/09/18 at 14:00 Clonidine (Catapres) 0.1 mg DAILY PRN GTB ELEVATED BLOOD PRESSURE; Start 10/09/18 at 14:00 Diltiazem HCl (Cardizem Iv) 5 mg Q4 PRN IV ELEVATED HEART RATE Last administered on 10/16/18 21:41; Admin Dose 5 MG; Start 10/09/18 at 14:00 Diphenhydramine HCl (Benadryl Liquid Cup) 25 mg Q6 PRN GTB ITCHING Last admini stered on 10/16/18 15:55; Admin Dose 25 MG; Start 10/09/18 at 14:00 Duloxetine HCl (Cymbalta) 30 mg DAILY PO Last administered on 10/16/18 08:43; Admin Dose 30 MG; Start 10/10/18 at 09:00 Epoetin Arpan (Epogen (Esrd)) 10,000 units TuSa@1300 SC Last administered on 10/15/18 13:20; Admin Dose 10,000 UNITS; Start 10/11/18 at 13:00 Gabapentin (Neurontin Liquid) 400 mg Q8 GTB Last administered on 10/16/18 21:12; Admin Dose 400 MG; Start 10/09/18 at 15:30 Hydralazine HCl (Apresoline) 10 mg Q4H PRN IV ELEVATED BLOOD PRESSURE; Start 10/09/18 at 14:00 Hydromorphone HCl (Dilaudid) 4 mg Q4H PRN PO MODERATE PAIN LEVEL 7-10 Last administered on 10/16/18 21:13; Admin Dose 4 MG; Start 10/09/18 at 14:00 Hydroxychloroquine Sulfate (Plaquenil) 200 mg BID PO Last administered on 10/16/18 21:13; Admin Dose 200 MG; Start 10/09/18 at 21:00 Diagnostic Test (Pha) (Accu-Chek) 1 ea 02 XX Last administered on 10/16/18 02:48; Admin Dose 1 EA; Start 10/10/18 at 02:00 Insulin Aspart (Novolog Insulin Pen) NOVOLOG *CUSTOM* ALGORITHM Q6H SC Last administered on 10/16/18 21:04; Admin Dose 1 UNIT; Start 10/09/18 at 14:00 Lactobacillus Acidophilus (Florajen3 Capsule) 1 each BID GTB Last administered on 10/16/18 21:13; Admin Dose 1 EACH; Start 10/09/18 at 21:00 Lansoprazole (Prevacid) 30 mg BID@06,18 GTB Last administered on 10/16/18 17:07; Admin Dose 30 MG; Start 10/09/18 at 18:00 Levetiracetam (Keppra Liquid) 500 mg BID GTB Last administered on 10/16/18 21:12; Admin Dose 500 MG; Start 10/09/18 at 21:00 Magnesium Oxide (Mag-Ox 400) 400 mg BID GTB Last administered on 10/16/18 21:13; Admin Dose 400 MG; Start 10/09/18 at 21:00 Metoclopramide HCl (Reglan) 10 mg TID IV Last administered on 10/16/18 21:15; Admin Dose 10 MG; Start 10/09/18 at 21:00 Miconazole Nitrate (Miconazole 2% Cr) 1 applic BID TOP Last administered on 10/16/18 21:32; Admin Dose 1 APPLIC; Start 10/09/18 at 21:00 Miconazole Nitrate (Miconazole 2% Cr) 1 applic Q12 PRN TOP rash; Start 10/09/18 at 14:00 Ondansetron HCl (Zofran Inj) 4 mg Q4H PRN IV NAUSEA AND/OR VOMITING Last administered on 10/16/18 21:31; Admin Dose 4 MG; Start 10/09/18 at 14:00 Polyethylene Glycol (Miralax) 17 gm DAILY PRN GTB CONSTIPATION; Start 10/09/18 at 14:00 Senna (Senokot) 2 tab Q8 PRN PO CONSTIPATION; Start 10/09/18 at 14:00 Trimethoprim/ Sulfamethoxazole (Bactrim Susp) 40 ml DAILY GTB Last administered on 10/16/18 08:41; Admin Dose 40 ML; Start 10/10/18 at 09:00 Zolpidem Tartrate (Ambien) 5 mg HS PRN PO INSOMNIA Last administered on 03:48; Admin Dose 5 MG; Start 10/09/18 at 14:00 Miscellaneous Information 1 ea NOTE XX ; Start 10/09/18 at 15:00 Glucose (Glutose) 15 gm Q15M PRN PO DECREASED GLUCOSE; Start 10/09/18 at 15:00 Glucose (Glutose) 22.5 gm Q15M PRN PO DECREASED GLUCOSE; Start 10/09/18 at 15:00 Dextrose (D50w Syringe) 25 ml Q15M PRN IV DECREASED GLUCOSE; Start 10/09/18 at 15:00 Dextrose (D50w Syringe) 50 ml Q15M PRN IV DECREASED GLUCOSE; Start 10/09/18 at 15:00 Glucagon (Glucagen) 1 mg Q15M PRN IM DECREASED GLUCOSE; Start 10/09/18 at 15:00 Glucose (Glutose) 15 gm Q15M PRN BUCCAL DECREASED GLUCOSE; Start 10/09/18 at 15:00 Sodium Chloride 500 ml @ 500 mls/hr Q1H PRN IV BLOOD PRESSURE SUPPORT Last admi nistered on 10/10/18at 07:59; Admin Dose 500 MLS/HR; Start 10/09/18 at 19:30 Albuterol (Ventolin Hfa) 4 puff Q6H RESP THERAPY INH Last administered on 10/16/18 19:20; Admin Dose 4 PUFF; Start 10/10/18 at 02:00 Ipratropium [place] (Atrovent Hfa) 4 puff Q6H RESP THERAPY INH Last administered on 10/16/18 19:20; Admin Dose 4 PUFF; Start 10/10/18 at 02:00 Methylprednisolone Sodium Succinate (Solu-Medrol) 40 mg Q8 IV Last administered on 10/16/18 21:15; Admin Dose 40 MG; Start 10/14/18 at 14:00 Quetiapine Fumarate (Seroquel) 50 mg BID GTB Last administered on 10/16/18 21:13; Admin Dose 50 MG; Start 10/14/18 at 13:30 Lorazepam (Ativan) 1 mg Q4H PRN GTB AGITATION/ANXIETY Last administered on 10/16 21:13; Admin Dose 1 MG; Start 10/14/18 at 13:00 Lisinopril (Zestril) 2.5 mg DAILY PO Last administered on 10/16/18 08:41; Admin Dose 2.5 MG; Start 10/15/18 at 09:00 Carvedilol (Coreg) 3.125 mg BID PO Last administered on 10/16/18 21:31; Admin Dose 3.125 MG; Start 10/14/18 at 21:00 Hydromorphone HCl (Dilaudid) 2 mg Q4H PRN PO PAIN LEVEL 4-6; Start 10/14/18 at 17:30 Fentanyl (Duragesic 50 Mcg/Hr Patch) 1 patch Q72H TRANSDERM Last administered on 10/14/18 20:18; Admin Dose 1 PATCH; Start 10/14/18 at 18:30 Linagliptin (Tradjenta) 5 mg DAILY PO Last administered on 10/16/18 13:01; Admin Dose 5 MG; Start 10/16/18 at 10:30 Calcium Carbonate (Ca Carbonate) 1,250 mg BID GTB Last administered on 10/16/18 21:12; Admin Dose 1,250 MG; Start 10/16/18 at 12:00 NEMO MARTINEZ M.D. Oct 16, 2018 22:17
[2018-10-17] VITALS (35 sets, daily range): BP systolic 93–151; BP diastolic 74–116; PULSE 108–131; RESP 18–46
[2018-10-17] MEDS: LORAZEPAM 1 MG TAB GTB PRN ×5 (00:42→21:41)
[2018-10-17] MEDS: HYDROmorphONE 2 MG TAB PO PRN ×6 (00:43→21:41)
[2018-10-17] MEDS: ALBUTEROL HFA 8 GM INHALER INH SCH ×4 (01:04→21:24)
[2018-10-17] MEDS: IPRATROPIUM (HFA) 12.9 GM INHALER INH SCH ×4 (01:04→21:24)
[2018-10-17] MEDS: ACCU-CHEK XX SCH (02:32)
[2018-10-17] MEDS: INSULIN ASPART [NOVOLOG] 3 ML PEN SC SCH ×4 (02:32→20:01)
[2018-10-17] MEDS: ZOLPIDEM 5 MG TAB PO PRN (03:39)
[2018-10-17] MEDS: GABAPENTIN (50 MG/ML PO SYG) GTB SCH ×3 (06:05→21:40)
[2018-10-17] MEDS: LANSOPRAZOLE 30 MG CAP GTB SCH ×2 (06:05→17:19)
[2018-10-17] MEDS: METHYLPREDNISOLONE 40 MG INJ IV SCH ×3 (06:05→21:40)
--- NOTE | 2018-10-17 07:21 | PN ---
DATE: 10/16/2018 SUBJECTIVE: Follow up on chronic hypoxemic respiratory failure, respiratory failure, rheumatoid arth ritis, dysphagia, diffuse reticulonodular opacities. The patient's FIO2 had to be increased to 80% t o maintain adequate saturation. The patient remains awake and responsive. Denies any chest pain or abdominal pain. The patient did have low grade fever earlier, T-max of 100.2. After Tylenol, it cam e down to 99.1. The patient did not have any vomiting, no reported bleeding from any site. The nataly ent is tolerating G-tube feeding. PHYSICAL EXAMINATION: GENERAL: Revealed the patient to be awake, alert. VITAL SIGNS: Temperature 99.1, pulse 118, respirations 24, blood pressure 122/91, O2 saturation 97% on FIO2 of 80%. HEENT: No eye discharge or redness. Nose and ears normal. NECK: Tracheostomy in place. CHEST: Diminished breath sounds at bases. CARDIOVASCULAR: Sinus tachycardia. No murmur. ABDOMEN: Soft, nondistended. G-tube in place. EXTREMITIES: No edema. NEUROLOGIC: The patient is awake, alert, follows simple commands. Has quadriplegia. LABORATORY DATA: Done this morning, WBC 27.3, hemoglobin 9, platelet 476. Chemistry: Sodium 141, p otassium 4.1, BUN 24, creatinine 0.5, glucose 136, ionized calcium normal at 1.1. IMPRESSION: 1. Acute on chronic hypoxemic respiratory failure. The patient also was started on IV Solu-Medrol y esterday. Continue breathing treatment and ventilator support. The patient is on pressure controlle d vent setting and is being followed by Dr. Daisy gomez. A chest CT is pending. 2. Rheumatoid arthritis. The patient's pain seems to be controlled with the current dose of fentany l. 3. Dysphagia. Continue tube feeding. 4. Anemia of chronic disease. Hemoglobin is 9 today. Will continue to monitor. 5. Hypoparathyroidism with recent hypercalcemia, status post pamidronate. Ionized calcium is normal . 6. Hypertension, in sinus tachycardia. The patient is on carvedilol. 7. Quadriplegia, history of C-spine surgery in the past. No acute issue. The patient remains criti kwasi ill and will be continued to be managed at ICU. Total critical care time spent 30 minutes. Dictated By: NOLA CHAVEZ/EFREN Conf#: [id number] [facility]#: [id number]
--- NOTE | 2018-10-17 08:28 | PN ---
DATE: 10/17/2018 SUBJECTIVE: The patient remains in serious but stable condition. No other acute events noted. No h emoptysis, hematemesis, or hematochezia. OBJECTIVE: VITAL SIGNS: Blood pressure is 104/79, pulse 114, respirations 27, temperature 97.9. HEENT: Head is normocephalic. NECK: Supple. HEART: Regular rate. LUNGS: Show diminished breath sounds at the base. ABDOMEN: Soft, nontender to palpation without rebound or guarding. EXTREMITIES: Negative for clubbing, cyanosis, no edema. DERMATOLOGIC: No rashes. MUSCULOSKELETAL: No joint effusion. NEUROLOGIC: No change in exam. MEDICATIONS: Reviewed. LABORATORY DATA: Shows a sodium 137, potassium 4.5, chloride 94, bicarbonate 37, BUN 26, creatinine 0.56, calcium 6.5. White count 27.5, hemoglobin 9.3, and platelet count is 518. IMAGING STUDY: The patient's chest x-ray was reviewed. ASSESSMENT AND PLAN: 1. Nonoliguric acute kidney injury on top of chronic kidney disease. Etiology of acute kidney injur y is secondary to hemodynamics. The patient's status post Bumex drip with good urinary output. Cont inue to monitor closely on intermittent diuretic therapy, monitor electrolytes closely. Continue sup portive care, renally dose all medicines. 2. Hypernatremia, improved. Continue free water flushes. 3. Anemia. Monitor hemoglobin and hematocrit levels. 4. Mineral bone disorder. Monitor calcium and phosphorus levels. 5. Ventilator-dependent respiratory failure. Vent settings and ABG was reviewed. Continue to monit or. 5. Dysphagia, status post PEG. Continue tube feeding. 6. Quadriplegia. Continue to monitor. 7. Sepsis secondary to pneumonia. Continue current antibiotic regimen. 8. Tachyarrhythmia. Continue current management. 9. Chronic encephalopathy. 10. Chronic pain syndrome. Continue current pain regimen. 11. Seizure disorder. Continue current treatment plan. 12. Rheumatoid arthritis. 13. History of adrenal insufficiency. Continue Cortef. Dictated By: UNA ROY DO NR/NTS Conf#: [id number] DID#: [id number] CC: DALTON DURBIN MD; NOLA VIDAL MD;*EndCC*
--- NOTE | 2018-10-17 08:57 | CONS ---
Assessment/Plan Assessment/Plan Hospital Course (Demo Recall) 53 yo male pt in [place] transferred to ICU for increased O2 demands Interval hx: WBC 27.5. Stool cx positive for VRE. Pt states he feels out of breath. RN and RT notified to follow up. On 80% FiO2. Tolerating tube feeds at 55ml/hr. Rectal tube. 1. Respiratory failure secondary to pneumonia versus interstitial pneumonitis from rheumatoid arthritis versus mild aspiration. The patient was getting ice chips. There was no evidence of aspiration of formula. 2. Severe rheumatoid arthritis. 3. Quadriplegia. 4. Adrenal insufficiency. 5. Gastroparesis. 6. Hypothyroidism. 7. Chronic pain syndrome. 8. Hypertension. 9. Diarrhea -VRE in stool -FOB neg Swallow eval: Impression: Oropharyngeal dysphagia associated with reduced oropharyngeal strength/coordination, delayed timing of swallowing and reduced coordination of breath with swallow safety impacting swallow safety. Pt is not safe to initiate p.o intake and is at high risk of aspiration. Recommendation: 1. Initiate dysphagia therapy 3-5x per week for 1-2 weeks 2. Keep NPO+PEG tube feeds for primary means of nutrition/hydration/medication delivery 3. Anticipate need for in-line PMV evaluation one respiratory status improves and is stabilized 4. ongoing assessment and BOT and oropharyngeal strengthening exercises, aswell as pt/family education and counseling 5. Anticipate need for MBSS prior to initiation of p.o intake PLAN: RN will clear with ID if pt needs to be on contact precautions for VRE of stool Nothing by mouth per swallow eval results Continue with tube feeds check residuals q 4 hours Continue Reglan. Aspiration precautions Continue with abx Pt examined and plan of care discussed with DR Minaya Consultation Date/Type/Reason Admit Date/Time Oct 09, 2018 at 12:16 Initial Consult Date 10/09/18 Requesting Provider: NOLA VIDAL MD Date/Time of Note DATE: 10/17/18 TIME: 08:48 Exam/Review of Systems Exam Vitals Vital Signs Date Temp Pulse Resp B/P (MAP) Pulse Ox O2 O2 Flow FiO2 Time Delivery Rate 10/17/18 120 31 95 80 07:30 10/17/18 97.9 108/79 Mechanical 07:00 (89) Ventilator Intake and Output 10/16/18 10/16/18 10/17/18 1515:00 23:00 07:00 IntakeIntake Total 960 ml 840 ml 840 ml OutputOutput Total 355 ml 540 ml 1155 ml BalanceBalance 605 ml 300 ml -315 ml Constitutional: alert, oriented Psych: no complaints Eyes: PERRL Respiratory: diminished breath sounds Cardiovascular: regular rate and rhythm Gastrointestinal: soft, non-tender Neurological: nl mental status Results Result Diagram: 10/17/18 0441 10/17/18 0441 Results 24hrs Laboratory Tests Test 10/16/18 14:53 10/16/18 21:03 10/17/18 02:27 10/17/18 04:41 Bedside Glucose 148 156 171 White Blood Count 27.5 H Red Blood Count 3.25 L Hemoglobin 9.3 L Hematocrit 30.1 L Mean Corpuscular 92.6 Volume Mean Corpuscular 28.6 L Hemoglobin Mean Corpuscular 30.9 L Hemoglobin Concent Red Cell 17.5 H Distribution Width Platelet Count 518 H Mean Platelet 10.7 H Volume Immature 5.500 H Granulocytes % Neutrophils % 80.8 H Lymphocytes % 5.3 L Monocytes % 8.0 Eosinophils % 0.0 Basophils % 0.4 Nucleated Red 0.3 H Blood Cells % Immature 1.520 H Granulocytes # Neutrophils # 22.3 H Lymphocytes # 1.5 Monocytes # 2.2 H Eosinophils # 0.0 Basophils # 0.1 Nucleated Red 0.1 H Blood Cells # Sodium Level 137 Potassium Level 4.5 Chloride Level 94 L Carbon Dioxide 37 H Level Anion Gap 6 Blood Urea 26 H Nitrogen Creatinine 0.56 L Est Glomerular > 60 Filtrat Rate mL/min Glucose Level 157 Calcium Level 6.5 L Test 10/17/18 05:00 10/17/18 08:21 Blood Gas Specimen Blood arterial Source Arterial Blood 10/17/2018 4:50:44 Date Drawn AM Arterial Blood pH 7.335 L (Temp corrected) Arterial Blood 63.6 H pCO2 (Temp correct) Arterial Blood pO2 124.3 H (Temp corrected) Arterial Blood 33.2 H HCO3 Arterial Blood 5.6 H Base Excess Arterial Blood 98.3 H Oxygen Saturation Chandler Test ACCEPTAB Arterial Blood Gas Left Radial Puncture Site Arterial 0.9 Blood Carboxyhemog lobin Arterial Blood 0.1 Methemoglobin Blood Gas A-a O2 379.3 H Differential Oxyhemoglobin 97.3 Percent Blood Gas 37.0 Temperature Blood Gas 20.0 Respiration Rate Blood Gas Actual 20 Respiration Rate Blood Gas Modality VENT - PC FiO2 80.0 Blood Gas Low PEEP 10.0 Setting Blood Gas 20.0 Inspiratory Pressure Blood Gas Notified UP Whom Blood Gas Notified 10/17/2018 5:39:22 Time AM Bedside Glucose 133 Medications Medication Current Medications Acetaminophen (Tylenol Liquid) 650 mg Q4H PRN GTB MILD PAIN(1-3)OR ELEVATED TEMP Last administered on 10/16/18 07:52; Admin Dose 650 MG; Start 10/09/18 at 14:00 Al Hydrox/Mg Hydrox/Simethicone (Mag-Al Plus) 15 ml Q6H PRN PO GASTROINTESTINAL UPSET; Start 10/09/18 at 14:00 Eye Lubricant (Artificial Tears Oph) 1 drop Q6H PRN BOTH EYES DRY EYES; Start 10/09/18 at 14:00 Bisacodyl (Dulcolax Supp) 10 mg DAILY PRN [place] CONSTIPATION; Start 10/09/18 at 14:00 Clonidine (Catapres) 0.1 mg DAILY PRN GTB ELEVATED BLOOD PRESSURE; Start 10/09 at 14:00 Diltiazem HCl (Cardizem Iv) 5 mg Q4 PRN IV ELEVATED HEART RATE Last administered on 10/16/18at 21:41; Admin Dose 5 MG; Start 10/09/18 at 14:00 Diphenhydramine HCl (Benadryl Liquid Cup) 25 mg Q6 PRN GTB ITCHING Last administered on 10/16/18at 15:55; Admin Dose 25 MG; Start 10/09/18 at 14:00 Duloxetine HCl (Cymbalta) 30 mg DAILY PO Last administered on 10/16/18at 08:43; Admin Dose 30 MG; Start 10/10/18 at 09:00 Epoetin Arpan (Epogen (Esrd)) 10,000 units TuSa@1300 SC Last administered on 10/15/18at 13:20; Admin Dose 10,000 UNITS; Start 10/11/18 at 13:00 Gabapentin (Neurontin Liquid) 400 mg Q8 GTB Last administered on 10/17/18 06:05; Admin Dose 400 MG; Start 10/09/18 at 15:30 Hydralazine HCl (Apresoline) 10 mg Q4H PRN IV ELEVATED BLOOD PRESSURE; Start 10/09/18 at 14:00 Hydromorphone HCl (Dilaudid) 4 mg Q4H PRN PO MODERATE PAIN LEVEL 7-10 Last administered on 10/17/18 04:47; Admin Dose 4 MG; Start 10/09/18 at 14:00 Hydroxychloroquine Sulfate (Plaquenil) 200 mg BID PO Last administered on 10/16/18 21:13; Admin Dose 200 MG; Start 10/09/18 at 21:00 Diagnostic Test (Pha) (Accu-Chek) 1 ea 02 XX Last administered on 10/17/18 02:32; Admin Dose 1 EA; Start 10/10/18 at 02:00 Insulin Aspart (Novolog Insulin Pen) NOVOLOG *CUSTOM* ALGORITHM Q6H SC Last administered on 10/17/18 02:32; Admin Dose 1 UNIT; Start 10/09/18 at 14:00 Lactobacillus Acidophilus (Florajen3 Capsule) 1 each BID GTB Last administered on 10/16/18 21:13; Admin Dose 1 EACH; Start 10/09/18 at 21:00 Lansoprazole (Prevacid) 30 mg BID@06,18 GTB Last administered on 10/17/18 06:05; Admin Dose 30 MG; Start 10/09/18 at 18:00 Levetiracetam (Keppra Liquid) 500 mg BID GTB Last administered on 10/16/18 21:12; Admin Dose 500 MG; Start 10/09/18 at 21:00 Magnesium Oxide (Mag-Ox 400) 400 mg BID GTB Last administered on 10/16/18 21:13; Admin Dose 400 MG; Start 10/09/18 at 21:00 Metoclopramide HCl (Reglan) 10 mg TID IV Last administered on 10/16/18 21:15; Admin Dose 10 MG; Start 10/09/18 at 21:00 Miconazole Nitrate (Miconazole 2% Cr) 1 applic BID TOP Last administered on 10/16/18 21:32; Admin Dose 1 APPLIC; Start 10/09/18 at 21:00 Miconazole Nitrate (Miconazole 2% Cr) 1 applic Q12 PRN TOP rash; Start 10/09/18 at 14:00 Ondansetron HCl (Zofran Inj) 4 mg Q4H PRN IV NAUSEA AND/OR VOMITING Last administered on 10/16/18 21:31; Admin Dose 4 MG; Start 10/09/18 at 14:00 Polyethylene Glycol (Miralax) 17 gm DAILY PRN GTB CONSTIPATION; Start 10/09/18 at 14:00 Senna (Senokot) 2 tab Q8 PRN PO CONSTIPATION; Start 10/09/18 at 14:00 Trimethoprim/ Sulfamethoxazole (Bactrim Susp) 40 ml DAILY GTB Last administered on 10/16/18 08:41; Admin Dose 40 ML; Start 10/10/18 at 09:00 Zolpidem Tartrate (Ambien) 5 mg HS PRN PO INSOMNIA Last administered on 10/17/18 03:39; Admin Dose 5 MG; Start 10/09/18 at 14:00 Miscellaneous Information 1 ea NOTE XX ; Start 10/09/18 at 15:00 Glucose (Glutose) 15 gm Q15M PRN PO DECREASED GLUCOSE; Start 10/09/18 at 15:00 Glucose (Glutose) 22.5 gm Q15M PRN PO DECREASED GLUCOSE; Start 10/09/18 at 15:00 Dextrose (D50w Syringe) 25 ml Q15M PRN IV DECREASED GLUCOSE; Start 10/09/18 at 15:00 Dextrose (D50w Syringe) 50 ml Q15M PRN IV DECREASED GLUCOSE; Start 10/09/18 at 15:00 Glucagon (Glucagen) 1 mg Q15M PRN IM DECREASED GLUCOSE; Start 10/09/18 at 15:00 Glucose (Glutose) 15 gm Q15M PRN BUCCAL DECREASED GLUCOSE; Start 10/09/18 at 15:00 Sodium Chloride 500 ml @ 500 mls/hr Q1H PRN IV BLOOD PRESSURE SUPPORT Last administered on 10/10/18 07:59; Admin Dose 500 MLS/HR; Start 10/09/18 at 19:30 Albuterol (Ventolin Hfa) 4 puff Q6H RESP THERAPY INH Last administered on 10/17/18 07:44; Admin Dose 4 PUFF; Start 10/10/18 at 02:00 Ipratropium [place] (Atrovent Hfa) 4 puff Q6H RESP THERAPY INH Last administered on 10/17/18 07:42; Admin Dose 4 PUFF; Start 10/10/18 at 02:00 Methylprednisolone Sodium Succinate (Solu-Medrol) 40 mg Q8 IV Last administered on 10/17/18 06:05; Admin Dose 40 MG; Start 10/14/18 at 14:00 Quetiapine Fumarate (Seroquel) 50 mg BID GTB Last administered on 10/16/18 21:13; Admin Dose 50 MG; Start 10/14/18 at 13:30 Lorazepam (Ativan) 1 mg Q4H PRN GTB AGITATION/ANXIETY Last administered on 10/17/18 04:46; Admin Dose 1 MG; Start 10/14/18 at 13:00 Lisinopril (Zestril) 2.5 mg DAILY PO Last administered on 10/16/18 08:41; Admin Dose 2.5 MG; Start 10/15/18 at 09:00 Carvedilol (Coreg) 3.125 mg BID PO Last administered on 10/16/18 21:31; Admin Dose 3.125 MG; Start 10/14/18 at 21:00 Hydromorphone HCl (Dilaudid) 2 mg Q4H PRN PO PAIN LEVEL 4-6; Start 10/14/18 at 17:30 Fentanyl (Duragesic 50 Mcg/Hr Patch) 1 patch Q72H TRANSDERM Last administered on 10/14/18 20:18; Admin Dose 1 PATCH; Start 10/14/18 at 18:30 Linagliptin (Tradjenta) 5 mg DAILY PO Last administered on 10/16/18 13:01; Admin Dose 5 MG; Start 10/16/18 at 10:30 Calcium Carbonate (Ca Carbonate) 1,250 mg BID GTB Last administered on 10/16/18 21:12; Admin Dose 1,250 MG; Start 10/16/18 at 12:00 MARYANN HACKETT Oct 17, 2018 08:57
[2018-10-17] MEDS: METOCLOPRAMIDE 10 MG INJ IV SCH ×3 (09:07→21:40)
[2018-10-17] MEDS: QUETIAPINE 25 MG TAB GTB SCH ×2 (09:08→21:43)
[2018-10-17] MEDS: DULOXETINE 30 MG CAP DR PO SCH (09:08)
[2018-10-17] MEDS: LINAGLIPTIN 5 MG TABLET PO SCH (09:08)
[2018-10-17] MEDS: L ACIDOPHIL/B LACTIS/B LONGUM CAPSULE GTB SCH ×2 (09:08→22:38)
[2018-10-17] MEDS: CA CARBONATE (250 MG/ML) 5ML CUP GTB SCH ×3 (09:09→21:40)
[2018-10-17] MEDS: LEVETIRACETAM (100 MG/ML) 5ML CUP GTB SCH ×2 (09:09→21:40)
[2018-10-17] MEDS: MAGNESIUM OXIDE 400 MG TAB GTB SCH ×2 (09:09→21:41)
[2018-10-17] MEDS: TRIMETHOPRIM/SULFAMETHOX (PO SYG) GTB SCH (09:10)
[2018-10-17] MEDS: LISINOPRIL 5 MG TAB PO SCH (09:10)
[2018-10-17] MEDS: BALSAM PERU/CASTOR OIL 60 GM TUBE TOP SCH ×2 (09:11→21:42)
[2018-10-17] MEDS: HYDROXYCHLOROQUINE 200 MG TAB PO SCH ×2 (09:11→21:41)
[2018-10-17] MEDS: MICONAZOLE 2% 30 GM CR TOP SCH ×2 (09:11→21:42)
--- NOTE | 2018-10-17 10:31 | CONS ---
Assessment/Plan Assessment/Plan Hospital Course (Demo Recall) IMPRESSION: 1. Tachycardia at this time in the setting of fevers and respiratory distress, most consistent with sinus tachycardia likely driving this process. 2. Hypertension with borderline hypotension at this time. -still borderline Hotn 3. Abnormal electrocardiogram at baseline. 4. Chronic respiratory failure, status post tracheostomy.-weaning vent support 5. Dysphagia, status post G-tube. 6. Quadriplegia. 7. Renal insufficiency, on steroids. 8. Chronic obstructive pulmonary disease. 9. Rheumatoid arthritis. 10. Chronic kidney disease. 11. Diabetes mellitus. 12.Adrenal insufficiency 14. cardiomyopathy-EF 35-40% by echo this admit Recc -ICU -Vent support as necessary -Follow volume status clsoely -Continue abx's and f/u cx data -continue steroids -low dose BB/ACEI as tolerated only -Give digoxin IVP Q6x 2 Consultation Date/Type/Reason Admit Date/Time Oct 09, 2018 at 12:16 Initial Consult Date 10/09/18 Type of Consult Cardiology Reason for Consultation CHF/cardiomyopathy/tachycardia Requesting Provider: NOLA VIDAL MD Date/Time of Note DATE: 10/17/18 TIME: 10:28 Exam/Review of Systems Vital Signs Vitals Vital Signs Date Temp Pulse Resp B/P (MAP) Pulse Ox O2 O2 Flow FiO2 Time Delivery Rate 10/17/18 116 22 100/77 97 Mechanical 10:00 (85) Ventilator 10/17/18 75 09:55 10/17/18 99.2 08:00 Intake and Output 10/16/18 10/16/18 10/17/18 1515:00 23:00 07:00 IntakeIntake Total 960 ml 840 ml 840 ml OutputOutput Total 355 ml 540 ml 1155 ml BalanceBalance 605 ml 300 ml -315 ml Exam Exam Review of Systems: CONSTITUTIONAL: No fevers, chills. PULMONARY: No sob CARDIOVASCULAR: No chest pain/palpitations GASTROINTESTINAL: No nausea/vomiting. GENITOURINARY: No hematuria/dysuria. MUSCULOSKELETAL: No myagias/arthalgias. PSYCHIATRIC: The patient denies depression. NEUROLOGIC: No weakness Constitutional: alert Psych: no complaints Head: normocephalic ENMT: mucosa pink and moist Neck: supple, jvd (9 cm water), other (trached) Respiratory: other (upper airway rhocherous sounds) Cardiovascular: other (tachycardic, regular rhythm) Gastrointestinal: soft, non-tender Musculoskeletal: muscle weakness (generalized) Extremities: edema (none) Neurological: other (No focal deficits) Labs Result Diagram: 10/17/18 0441 10/17/18 0441 Results 24hrs Laboratory Tests Test 10/16/18 14:53 10/16/18 21:03 10/17/18 02:27 10/17/18 04:41 Bedside Glucose 148 156 171 White Blood Count 27.5 H Red Blood Count 3.25 L Hemoglobin 9.3 L Hematocrit 30.1 L Mean Corpuscular 92.6 Volume Mean Corpuscular 28.6 L Hemoglobin Mean Corpuscular 30.9 L Hemoglobin Concent Red Cell 17.5 H Distribution Width Platelet Count 518 H Mean Platelet 10.7 H Volume Immature 5.500 H Granulocytes % Neutrophils % 80.8 H Lymphocytes % 5.3 L Monocytes % 8.0 Eosinophils % 0.0 Basophils % 0.4 Nucleated Red 0.3 H Blood Cells % Immature 1.520 H Granulocytes # Neutrophils # 22.3 H Lymphocytes # 1.5 Monocytes # 2.2 H Eosinophils # 0.0 Basophils # 0.1 Nucleated Red 0.1 H Blood Cells # Sodium Level 137 Potassium Level 4.5 Chloride Level 94 L Carbon Dioxide 37 H Level Anion Gap 6 Blood Urea 26 H Nitrogen Creatinine 0.56 L Est Glomerular > 60 Filtrat Rate mL/min Glucose Level 157 Calcium Level 6.5 L Test 10/17/18 05:00 10/17/18 08:21 Blood Gas Specimen Blood arterial Source Arterial Blood 10/17/2018 4:50:44 Date Drawn AM Arterial Blood pH 7.335 L (Temp corrected) Arterial Blood 63.6 H pCO2 (Temp correct) Arterial Blood pO2 124.3 H (Temp corrected) Arterial Blood 33.2 H HCO3 Arterial Blood 5.6 H Base Excess Arterial Blood 98.3 H Oxygen Saturation Chandler Test ACCEPTAB Arterial Blood Gas Left Radial Puncture Site Arterial 0.9 Blood Carboxyhemog lobin Arterial Blood 0.1 Methemoglobin Blood Gas A-a O2 379.3 H Differential Oxyhemoglobin 97.3 Percent Blood Gas 37.0 Temperature Blood Gas 20.0 Respiration Rate Blood Gas Actual 20 Respiration Rate Blood Gas Modality VENT - PC FiO2 80.0 Blood Gas Low PEEP 10.0 Setting Blood Gas 20.0 Inspiratory Pressure Blood Gas Notified UP Whom Blood Gas Notified 10/17/2018 5:39:22 Time AM Bedside Glucose 133 Medications Medications Current Medications Acetaminophen (Tylenol Liquid) 650 mg Q4H PRN GTB MILD PAIN(1-3)OR ELEVATED TEMP Last administered on 10/16/18 07:52; Admin Dose 650 MG; Start 10/09/18 at 14:00 Al Hydrox/Mg Hydrox/Simethicone (Mag-Al Plus) 15 ml Q6H PRN PO GASTROINTESTINAL UPSET; Start 10/09/18 at 14:00 Eye Lubricant (Artificial Tears Oph) 1 drop Q6H PRN BOTH EYES DRY EYES; Start 10/09/18 at 14:00 Bisacodyl (Dulcolax Supp) 10 mg DAILY PRN [place] CONSTIPATION; Start 10/09/18 at 14:00 Clonidine (Catapres) 0.1 mg DAILY PRN GTB ELEVATED BLOOD PRESSURE; Start 10/09/18 at 14:00 Diltiazem HCl (Cardizem Iv) 5 mg Q4 PRN IV ELEVATED HEART RATE Last administered on 10/16/18at 21:41; Admin Dose 5 MG; Start 10/09/18 at 14:00 Diphenhydramine HCl (Benadryl Liquid Cup) 25 mg Q6 PRN GTB ITCHING Last administered on 10/16/18at 15:55; Admin Dose 25 MG; Start 10/09/18 at 14:00 Duloxetine HCl (Cymbalta) 30 mg DAILY PO Last administered on 10/17/18 09:08; Admin Dose 30 MG; Start 10/10/18 at 09:00 Epoetin Arpan (Epogen (Esrd)) 10,000 units TuSa@1300 SC Last administered on 10/15/18 13:20; Admin Dose 10,000 UNITS; Start 10/11/18 at 13:00 Gabapentin (Neurontin Liquid) 400 mg Q8 GTB Last administered on 10/17/18 06:05; Admin Dose 400 MG; Start 10/09/18 at 15:30 Hydralazine HCl (Apresoline) 10 mg Q4H PRN IV ELEVATED BLOOD PRESSURE; Start 10/09/18 at 14:00 Hydromorphone HCl (Dilaudid) 4 mg Q4H PRN PO MODERATE PAIN LEVEL 7-10 Last administered on 10/17/18 09:09; Admin Dose 4 MG; Start 10/09/18 at 14:00 Hydroxychloroquine Sulfate (Plaquenil) 200 mg BID PO Last administered on 9at 09:11; Admin Dose 200 MG; Start 10/09/18 at 21:00 Diagnostic Test (Pha) (Accu-Chek) 1 ea 02 XX Last administered on 10/17/18 02:32; Admin Dose 1 EA; Start 10/10/18 at 02:00 Insulin Aspart (Novolog Insulin Pen) NOVOLOG *CUSTOM* ALGORITHM Q6H SC Last administered on 10/17/18 02:32; Admin Dose 1 UNIT; Start 10/09/18 at 14:00 Lactobacillus Acidophilus (Florajen3 Capsule) 1 each BID GTB Last administered on 10/17/18 09:08; Admin Dose 1 EACH; Start 10/09/18 at 21:00 Lansoprazole (Prevacid) 30 mg BID@18 GTB Last administered on 10/17/18 06:05; Admin Dose 30 MG; Start 10/09/18 at 18:00 Levetiracetam (Keppra Liquid) 500 mg BID GTB Last administered on 10/17/18 09:09; Admin Dose 500 MG; Start 10/09/18 at 21:00 Magnesium Oxide (Mag-Ox 400) 400 mg BID GTB Last administered on 10/17/18 09: 09; Admin Dose 400 MG; Start 10/09/18 at 21:00 Metoclopramide HCl (Reglan) 10 mg TID IV Last administered on 10/17/18 09:07; Admin Dose 10 MG; Start 10/09/18 at 21:00 Miconazole Nitrate (Miconazole 2% Cr) 1 applic BID TOP Last administered on 10/17/18 09:11; Admin Dose 1 APPLIC; Start 10/09/18 at 21:00 Miconazole Nitrate (Miconazole 2% Cr) 1 applic Q12 PRN TOP rash; Start 10/09/18 at 14:00 Ondansetron HCl (Zofran Inj) 4 mg Q4H PRN IV NAUSEA AND/OR VOMITING Last administered on 10/16/18 21:31; Admin Dose 4 MG; Start 10/09/18 at 14:00 Polyethylene Glycol (Miralax) 17 gm DAILY PRN GTB CONSTIPATION; Start 10/09/18 at 14:00 Senna (Senokot) 2 tab Q8 PRN PO CONSTIPATION; Start 10/09/18 at 14:00 Trimethoprim/ Sulfamethoxazole (Bactrim Susp) 40 ml DAILY GTB Last administered on 10/17/18at 09:10; Admin Dose 40 ML; Start 10/10/18 at 09:00 Zolpidem Tartrate (Ambien) 5 mg HS PRN PO INSOMNIA Last administered on 10/17/18at 03:39; Admin Dose 5 MG; Start 10/09/18 at 14:00 Miscellaneous Information 1 ea NOTE XX ; Start 10/09/18 at 15:00 Glucose (Glutose) 15 gm Q15M PRN PO DECREASED GLUCOSE; Start 10/09/18 at 15:00 Glucose (Glutose) 22.5 gm Q15M PRN PO DECREASED GLUCOSE; Start 10/09/18 at 15:0 0 Dextrose (D50w Syringe) 25 ml Q15M PRN IV DECREASED GLUCOSE; Start 10/09/18 at 15:00 Dextrose (D50w Syringe) 50 ml Q15M PRN IV DECREASED GLUCOSE; Start 10/09/18 at 15:00 Glucagon (Glucagen) 1 mg Q15M PRN IM DECREASED GLUCOSE; Start 10/09/18 at 15:00 Glucose (Glutose) 15 gm Q15M PRN BUCCAL DECREASED GLUCOSE; Start 10/09/18 at 15:00 Sodium Chloride 500 ml @ 500 mls/hr Q1H PRN IV BLOOD PRESSURE SUPPORT Last administered on 10/10/18at 07:59; Admin Dose 500 MLS/HR; Start 10/09/18 at 19:30 Albuterol (Ventolin Hfa) 4 puff Q6H RESP THERAPY INH Last administered on 10/17/18 07:44; Admin Dose 4 PUFF; Start 10/10/18 at 02:00 Ipratropium [place] (Atrovent Hfa) 4 puff Q6H RESP THERAPY INH Last administered on 10/17/18 07:42; Admin Dose 4 PUFF; Start 10/10/18 at 02:00 Methylprednisolone Sodium Succinate (Solu-Medrol) 40 mg Q8 IV Last administered on 10/17/18 06:05; Admin Dose 40 MG; Start 10/14/18 at 14:00 Quetiapine Fumarate (Seroquel) 50 mg BID GTB Last administered on 10/17/18 09:08; Admin Dose 50 MG; Start 10/14/18 at 13:30 Lorazepam (Ativan) 1 mg Q4H PRN GTB AGITATION/ANXIETY Last administered on 10/17/18 04:46; Admin Dose 1 MG; Start 10/14/18 at 13:00 Lisinopril (Zestril) 2.5 mg DAILY PO Last administered on 10/17/18 09:10; Admin Dose 2.5 MG; Start 10/15/18 at 09:00 Carvedilol (Coreg) 3.125 mg BID PO Last administered on 10/17/18 09:09; Admin Dose 3.125 MG; Start 10/14/18 at 21:00 Hydromorphone HCl (Dilaudid) 2 mg Q4H PRN PO PAIN LEVEL 4-6; Start 10/14/18 at 17:30 Fentanyl (Duragesic 50 Mcg/Hr Patch) 1 patch Q72H TRANSDERM Last administered on 10/14/18 20:18; Admin Dose 1 PATCH; Start 10/14/18 at 18:30 Linagliptin (Tradjenta) 5 mg DAILY PO Last administered on 10/17/18 09:08; Admin Dose 5 MG; Start 10/16/18 at 10:30 Calcium Carbonate (Ca Carbonate) 1,250 mg BID GTB Last administered on 10/17/18 09:09; Admin Dose 1,250 MG; Start 10/16/18 at 12:00 BRISA HAQUE Oct 17, 2018 10:31
--- NOTE | 2018-10-17 10:39 | CONS ---
Consult Date/Type/Reason Admit Date/Time Oct 09, 2018 at 12:16 Initial Consult Date 10/09/18 Type of Consult Pulmonary Requesting Provider: NOLA VIDAL MD Date/Time of Note DATE: 10/17/18 TIME: 10:38 Subjective No significant changes remains agitated on FiO2 of 80% PEEP of 10. Objective Vital Signs Date Temp Pulse Resp B/P (MAP) Pulse Ox O2 O2 Flow FiO2 Time Delivery Rate 10/17/18 116 22 100/77 97 Mechanical 10:00 (85) Ventilator 10/17/18 75 09:55 10/17/18 99.2 08:00 Intake and Output 10/16/18 10/16/18 10/17/18 1515:00 23:00 07:00 IntakeIntake Total 960 ml 840 ml 840 ml OutputOutput Total 355 ml 540 ml 1155 ml BalanceBalance 605 ml 300 ml -315 ml Exam GENERAL: Chronically ill-appearing gentleman on mechanical ventilation via tracheostomy VITAL SIGNS: per chart NECK: Supple. No JVD or lymphadenopathy. CARDIAC EXAM: S1, S2. No added sounds or murmurs. CHEST: Diminished air entry bilaterally with rales ABDOMEN: Soft, nontender. No guarding or rebound. EXTREMITIES: No cyanosis, clubbing or edema. NEUROLOGIC: Generalized weakness. No focal deficits. Vent Setting Ventilator Support Mode: PC Fraction of Inspired Oxygen pe: 75 Positive End Expiratory Pressu: 10.0 Results/Medications Result Diagram: 10/17/18 0441 10/17/18 0441 Results 24 hrs Laboratory Tests Test 10/16/18 14:53 10/16/18 21:03 10/17/18 02:27 10/17/18 04:41 Bedside Glucose 148 156 171 White Blood Count 27.5 H Red Blood Count 3.25 L Hemoglobin 9.3 L Hematocrit 30.1 L Mean Corpuscular 92.6 Volume Mean Corpuscular 28.6 L Hemoglobin Mean Corpuscular 30.9 L Hemoglobin Concent Red Cell 17.5 H Distribution Width Platelet Count 518 H Mean Platelet 10.7 H Volume Immature 5.500 H Granulocytes % Neutrophils % 80.8 H Lymphocytes % 5.3 L Monocytes % 8.0 Eosinophils % 0.0 Basophils % 0.4 Nucleated Red 0.3 H Blood Cells % Immature 1.520 H Granulocytes # Neutrophils # 22.3 H Lymphocytes # 1.5 Monocytes # 2.2 H Eosinophils # 0.0 Basophils # 0.1 Nucleated Red 0.1 H Blood Cells # Sodium Level 137 Potassium Level 4.5 Chloride Level 94 L Carbon Dioxide 37 H Level Anion Gap 6 Blood Urea 26 H Nitrogen Creatinine 0.56 L Est Glomerular > 60 Filtrat Rate mL/min Glucose Level 157 Calcium Level 6.5 L Test 10/17/18 05:00 10/17/18 08:21 Blood Gas Specimen Blood arterial Source Arterial Blood 10/17/2018 4:50:44 Date Drawn AM Arterial Blood pH 7.335 L (Temp corrected) Arterial Blood 63.6 H pCO2 (Temp correct) Arterial Blood pO2 124.3 H (Temp corrected) Arterial Blood 33.2 H HCO3 Arterial Blood 5.6 H Base Excess Arterial Blood 98.3 H Oxygen Saturation Chandler Test ACCEPTAB Arterial Blood Gas Left Radial Puncture Site Arterial 0.9 Blood Carboxyhemog lobin Arterial Blood 0.1 Methemoglobin Blood Gas A-a O2 379.3 H Differential Oxyhemoglobin 97.3 Percent Blood Gas 37.0 Temperature Blood Gas 20.0 Respiration Rate Blood Gas Actual 20 Respiration Rate Blood Gas Modality VENT - PC FiO2 80.0 Blood Gas Low PEEP 10.0 Setting Blood Gas 20.0 Inspiratory Pressure Blood Gas Notified UP Whom Blood Gas Notified 10/17/2018 5:39:22 Time AM Bedside Glucose 133 Medications Current Medications Acetaminophen (Tylenol Liquid) 650 mg Q4H PRN GTB MILD PAIN(1-3)OR ELEVATED TEMP Last administered on 10/16/18at 07:52; Admin Dose 650 MG; Start 10/09/18 at 14:00 Al Hydrox/Mg Hydrox/Simethicone (Mag-Al Plus) 15 ml Q6H PRN PO GASTROINTESTINAL UPSET; Start 10/09/18 at 14:00 Eye Lubricant (Artificial Tears Oph) 1 drop Q6H PRN BOTH EYES DRY EYES; Start 10/09/18 at 14:00 Bisacodyl (Dulcolax Supp) 10 mg DAILY PRN [place] CONSTIPATION; Start 10/09/18 at 14:00 Clonidine (Catapres) 0.1 mg DAILY PRN GTB ELEVATED BLOOD PRESSURE; Start 10/09/18 at 14:00 Diltiazem HCl (Cardizem Iv) 5 mg Q4 PRN IV ELEVATED HEART RATE Last administered on 10/16/18 21:41; Admin Dose 5 MG; Start 10/09/18 at 14:00 Diphenhydramine HCl (Benadryl Liquid Cup) 25 mg Q6 PRN GTB ITCHING Last administered on 10/16/18 15:55; Admin Dose 25 MG; Start 10/09/18 at 14:00 Duloxetine HCl (Cymbalta) 30 mg DAILY PO Last administered on 10/17/18 09:08; Admin Dose 30 MG; Start 10/10/18 at 09:00 Epoetin Arpan (Epogen (Esrd)) 10,000 units TuSa@1300 SC Last administered on 10/15/18 13:20; Admin Dose 10,000 UNITS; Start 10/11/18 at 13:00 Gabapentin (Neurontin Liquid) 400 mg Q8 GTB Last administered on 10/17/18 06:05; Admin Dose 400 MG; Start 10/09/18 at 15:30 Hydralazine HCl (Apresoline) 10 mg Q4H PRN IV ELEVATED BLOOD PRESSURE; Start 10/09/18 at 14:00 Hydromorphone HCl (Dilaudid) 4 mg Q4H PRN PO MODERATE PAIN LEVEL 7-10 Last administered on 10/17/18 09:09; Admin Dose 4 MG; Start 10/09/18 at 14:00 Hydroxychloroquine Sulfate (Plaquenil) 200 mg BID PO Last administered on 10/17/18 09:11; Admin Dose 200 MG; Start 10/09/18 at 21:00 Diagnostic Test (Pha) (Accu-Chek) 1 ea 02 XX Last administered on 10/17/18 02:3 2; Admin Dose 1 EA; Start 10/10/18 at 02:00 Insulin Aspart (Novolog Insulin Pen) NOVOLOG *CUSTOM* ALGORITHM Q6H SC Last administered on 10/17/18 02:32; Admin Dose 1 UNIT; Start 10/09/18 at 14:00 Lactobacillus Acidophilus (Florajen3 Capsule) 1 each BID GTB Last administered on 10/17/18 09:08; Admin Dose 1 EACH; Start 10/09/18 at 21:00 Lansoprazole (Prevacid) 30 mg BID@06,18 GTB Last administered on 3/4/19at 06:05; Admin Dose 30 MG; Start 10/09/18 at 18:00 Levetiracetam (Keppra Liquid) 500 mg BID GTB Last administered on 10/17/18 09:09; Admin Dose 500 MG; Start 10/09/18 at 21:00 Magnesium Oxide (Mag-Ox 400) 400 mg BID GTB Last administered on 10/17/18 09:09; Admin Dose 400 MG; Start 10/09/18 at 21:00 Metoclopramide HCl (Reglan) 10 mg TID IV Last administered on 10/17/18 09:07; Admin Dose 10 MG; Start 10/09/18 at 21:00 Miconazole Nitrate (Miconazole 2% Cr) 1 applic BID TOP Last administered on 10/17/18 09:11; Admin Dose 1 APPLIC; Start 10/09/18 at 21:00 Miconazole Nitrate (Miconazole 2% Cr) 1 applic Q12 PRN TOP rash; Start 10/09/18 at 14:00 Ondansetron HCl (Zofran Inj) 4 mg Q4H PRN IV NAUSEA AND/OR VOMITING Last administered on 10/16/18 21:31; Admin Dose 4 MG; Start 10/09/18 at 14:00 Polyethylene Glycol (Miralax) 17 gm DAILY PRN GTB CONSTIPATION; Start 10/09/18 at 14:00 Senna (Senokot) 2 tab Q8 PRN PO CONSTIPATION; Start 10/09/18 at 14:00 Trimethoprim/ Sulfamethoxazole (Bactrim Susp) 40 ml DAILY GTB Last administered on 10/17/18 09:10; Admin Dose 40 ML; Start 10/10/18 at 09:00 Zolpidem Tartrate (Ambien) 5 mg HS PRN PO INSOMNIA Last administered on 10/17/18 03:39; Admin Dose 5 MG; Start 10/09/18 at 14:00 Miscellaneous Information 1 ea NOTE XX ; Start 10/09/18 at 15:00 Glucose (Glutose) 15 gm Q15M PRN PO DECREASED GLUCOSE; Start 10/09/18 at 15:00 Glucose (Glutose) 22.5 gm Q15M PRN PO DECREASED GLUCOSE; Start 10/09/18 at 15:00 Dextrose (D50w Syringe) 25 ml Q15M PRN IV DECREASED GLUCOSE; Start 10/09/18 at 15:00 Dextrose (D50w Syringe) 50 ml Q15M PRN IV DECREASED GLUCOSE; Start 10/09/18 at 15:00 Glucagon (Glucagen) 1 mg Q15M PRN IM DECREASED GLUCOSE; Start 10/09/18 at 15:00 Glucose (Glutose) 15 gm Q15M PRN BUCCAL DECREASED GLUCOSE; Start 10/09/18 at 1 5:00 Sodium Chloride 500 ml @ 500 mls/hr Q1H PRN IV BLOOD PRESSURE SUPPORT Last administered on 10/10/18 07:59; Admin Dose 500 MLS/HR; Start 10/09/18 at 19:30 Albuterol (Ventolin Hfa) 4 puff Q6H RESP THERAPY INH Last administered on 10/17/18 07:44; Admin Dose 4 PUFF; Start 10/10/18 at 02:00 Ipratropium [place] (Atrovent Hfa) 4 puff Q6H RESP THERAPY INH Last administered on 10/17/18 07:42; Admin Dose 4 PUFF; Start 10/10/18 at 02:00 Methylprednisolone Sodium Succinate (Solu-Medrol) 40 mg Q8 IV Last administered on 10/17/18 06:05; Admin Dose 40 MG; Start 10/14/18 at 14:00 Quetiapine Fumarate (Seroquel) 50 mg BID GTB Last administered on 10/17/18 09:08; Admin Dose 50 MG; Start 10/14/18 at 13:30 Lorazepam (Ativan) 1 mg Q4H PRN GTB AGITATION/ANXIETY Last administered on 10/17/18 04:46; Admin Dose 1 MG; Start 10/14/18 at 13:00 Lisinopril (Zestril) 2.5 mg DAILY PO Last administered on 10/17/18 09:10; Admin Dose 2.5 MG; Start 10/15/18 at 09:00 Hydromorphone HCl (Dilaudid) 2 mg Q4H PRN PO PAIN LEVEL 4-6; Start 10/14/18 at 17:30 Fentanyl (Duragesic 50 Mcg/Hr Patch) 1 patch Q72H TRANSDERM Last administered on 10/14/18at 20:18; Admin Dose 1 PATCH; Start 10/14/18 at 18:30 Linagliptin (Tradjenta) 5 mg DAILY PO Last administered on 10/17/18at 09:08; Admin Dose 5 MG; Start 10/16/18 at 10:30 Calcium Carbonate (Ca Carbonate) 1,250 mg BID GTB Last administered on 10/17/18at 09:09; Admin Dose 1,250 MG; Start 10/16/18 at 12:00 Carvedilol (Coreg) 6.25 mg BID PO ; Start 10/17/18 at 21:00; Status UNV Digoxin (Digoxin) 250 mcg Q6 IV ; Start 10/17/18 at 12:00; Status UNV Assessment/Plan Hospital Course (Demo Recall) IMP: 1. Acute on chronic hypoxemic respiratory failure with underlying acute respiratory distress syndrome. 2. History of HSV esophagitis. 3. Chronic sepsis. 4. History of rheumatoid arthritis. 5. C-spine disease with functional quadriplegia. 6. Dysphagia with G-tube. PLAN: 1. Continue bronchodilators 2. Pressure control ventilation with delta P of 20 cm H20 and PEEP 10 cm H20; may lower FiO2 to maintain PaO2 55- 60 3. Obtain ABG daily 4. Bronchodilator treatment. 5. Deep vein thrombosis and gastrointestinal prophylaxis. 6. Check stool c.diff 7. Non-con CT chest Critical care time 40 minutes Extremely poor prognosis DALTON DURBIN MD, [facility] Oct 17, 2018 10:39
[2018-10-17] MEDS: DIGOXIN 500 MCG INJ IV SCH ×2 (12:20→17:18)
--- NOTE | 2018-10-17 18:17 | CONS ---
Assessment/Plan Assessment/Plan Hospital Course (Demo Recall) # sepsis, respiratory - recurrent sepsis on 10/08/2018 due to aspiration pneumonia, HCAP - possible aspiration pneumonia, recurrent pneumonia due to citrobacter - acute on chronic hypoxic and hypercarbic respiratory failure - persistent leukocytosis likely due to steroid margination - h/o tracheostomy on 08/26/2018 - h/o "Increased mild left apical pneumothorax" per CXR on 09/19/2018; no pneumot horax mentioned on subsequent CXR - h/o pneumomediastinum - h/o VAT on 08/11/2018 - h/o asthma/COPD exacerbation - h/o acute tracheobronchitis - h/o MAC infection but CT chest did not demonstrate features suggestive of this per chart review - h/o HCAP due to citrobacter, based on resp culture on 09/13/2018 - h/o aspergillus growing out of resp culture per (pulm note by Dr. Lopez) on 07/25/2018 - h/o elevated 1,3 [id number] level = 232 on 08/06/2018 - h/o MSSA septicemia # GI - diarrhea, C diff on 10/09/2018 was negative - h/o HSV esophagitis, took acyclovir x21 days from 08/26/2018 - h/o EGD, esophageal biopsy showed esophageal squamous mucosa showing acute inflammation, granulation tissue, and ulceration consistent with ulcerative esophagitis, rare multinucleated cells with morphology suggestive of vial cytopathic changes, No cardiac mucosa, intestinal metaplasia, dysplasia, or malignancy defined - GERD - PUD # renal/ - Hypokalemia, recurrent - CKD 2 - BPH # cardiac - tachycardia, persistent - ACD - HTN - HLD # endo - T2DM - Hgb A1c 7.2% - secondary adrenal insufficiency; steroid dependent - Hypoparathyroidism - Hypercalcemia - Pamidronate was ordered # neuro - toxic metabolic encephalopathy - Cervical myopathy - Severe cervical spinal cord stenosis with cord compression from C3-C5, s/p laminectomy in ~03/2018 - Chronic pain syndrome - Functional quadriplegia - Seizure d/o # other chronic conditions - RA with chronic steroid dependence - Immunocompromised status - Fibromyalgia rheumatica - DDD - H/o multiple rib fracture - Pt completed: meropenem (09/25/2018-10/02/2018), vancomycin (09/25/18-09/28/18), pip/tazo (10/09/2018-10/15/2018) recommendations - continue Bactrim for pneumocystis PPX - continue to monitor off other systemic antibiotic the critical care time I took to care for this Pt today was 30 min Consultation Date/Type/Reason Admit Date/Time Oct 09, 2018 at 12:16 Initial Consult Date 10/09/18 Type of Consult ID Requesting Provider: NOLA VIDAL MD Date/Time of Note DATE: 10/17/18 TIME: 18:14 24 HR Interval Summary Subjective hx not possible: pt non-verbal, pt critical, pt critical status Exam/Review of Systems Exam Vitals Vital Signs Date Temp Pulse Resp B/P (MAP) Pulse Ox O2 O2 Flow FiO2 Time Delivery Rate 10/17/18 128 29 94 70 17:04 10/17/18 132/92 Mechanical 17:00 (105) Ventilator 10/17/18 98.2 16:00 Intake and Output 10/16/18 10/16/18 10/17/18 1515:00 23:00 07:00 IntakeIntake Total 960 ml 840 ml 840 ml OutputOutput Total 355 ml 540 ml 1155 ml BalanceBalance 605 ml 300 ml -315 ml Constitutional: non-verbal, frail Psych: confusion Head: normocephalic, atraumatic Eyes: nl conjunctiva, nl lids ENMT: nl external ears & nose, nl nasal mucosa & septum Neck: other (not swollen) Respiratory: diminished breath sounds Cardiovascular: regular rate and rhythm, nl pulses Gastrointestinal: soft, non-tender, other (+rectal tube) Genitourinary - Male: other (FC) Musculoskeletal: No swelling Extremities: No edema Neurological: lethargic Skin: nl turgor, rash or lesions (+coccyx has superficial tears) Results Result Diagram: 10/17/18 0441 10/17/18 0441 Results 24hrs Laboratory Tests Test 10/16/18 21:03 10/17/18 02:27 10/17/18 04:41 10/17/18 05:00 Bedside Glucose 156 171 White Blood Count 27.5 H Red Blood Count 3.25 L Hemoglobin 9.3 L Hematocrit 30.1 L Mean Corpuscular 92.6 Volume Mean Corpuscular 28.6 L Hemoglobin Mean Corpuscular 30.9 L Hemoglobin Concent Red Cell 17.5 H Distribution Width Platelet Count 518 H Mean Platelet 10.7 H Volume Immature 5.500 H Granulocytes % Neutrophils % 80.8 H Lymphocytes % 5.3 L Monocytes % 8.0 Eosinophils % 0.0 Basophils % 0.4 Nucleated Red 0.3 H Blood Cells % Immature 1.520 H Granulocytes # Neutrophils # 22.3 H Lymphocytes # 1.5 Monocytes # 2.2 H Eosinophils # 0.0 Basophils # 0.1 Nucleated Red 0.1 H Blood Cells # Sodium Level 137 Potassium Level 4.5 Chloride Level 94 L Carbon Dioxide 37 H Level Anion Gap 6 Blood Urea 26 H Nitrogen Creatinine 0.56 L Est Glomerular > 60 Filtrat Rate mL/min Glucose Level 157 Calcium Level 6.5 L Blood Gas Specimen Blood arterial Source Arterial Blood 10/17/2018 4:50:44 Date Drawn AM Arterial Blood pH 7.335 L (Temp corrected) Arterial Blood 63.6 H pCO2 (Temp correct) Arterial Blood pO2 124.3 H (Temp corrected) Arterial Blood 33.2 H HCO3 Arterial Blood 5.6 H Base Excess Arterial Blood 98.3 H Oxygen Saturation Chandler Test ACCEPTAB Arterial Blood Gas Left Radial Puncture Site Arterial 0.9 Blood Carboxyhemog lobin Arterial Blood 0.1 Methemoglobin Blood Gas A-a O2 379.3 H Differential Oxyhemoglobin 97.3 Percent Blood Gas 37.0 Temperature Blood Gas 20.0 Respiration Rate Blood Gas Actual 20 Respiration Rate Blood Gas Modality VENT - PC FiO2 80.0 Blood Gas Low PEEP 10.0 Setting Blood Gas 20.0 Inspiratory Pressure Blood Gas Notified UP Whom Blood Gas Notified 10/17/2018 5:39:22 Time AM Test 10/17/18 08:21 10/17/18 13:20 Bedside Glucose 133 143 Medications Medication Current Medications Acetaminophen (Tylenol Liquid) 650 mg Q4H PRN GTB MILD PAIN(1-3)OR ELEVATED TEMP Last administered on 10/16/18at 07:52; Admin Dose 650 MG; Start 10/09/18 at 14:00 Al Hydrox/Mg Hydrox/Simethicone (Mag-Al Plus) 15 ml Q6H PRN PO GASTROINTESTINAL UPSET Last administered on 10/17/18 13:18; Admin Dose 15 ML; Start 10/09/18 at 14:00 Eye Lubricant (Artificial Tears Oph) 1 drop Q6H PRN BOTH EYES DRY EYES; Start 10/09/18 at 14:00 Bisacodyl (Dulcolax Supp) 10 mg DAILY PRN [place] CONSTIPATION; Start 10/09/18 at 14:00 Clonidine (Catapres) 0.1 mg DAILY PRN GTB ELEVATED BLOOD PRESSURE; Start 10/09/18 at 14:00 Diltiazem HCl (Cardizem Iv) 5 mg Q4 PRN IV ELEVATED HEART RATE Last administered on 10/16/18 21:41; Admin Dose 5 MG; Start 10/09/18 at 14:00 Diphenhydramine HCl (Benadryl Liquid Cup) 25 mg Q6 PRN GTB ITCHING Last administered on 10/16/18 15:55; Admin Dose 25 MG; Start 10/09/18 at 14:00 Duloxetine HCl (Cymbalta) 30 mg DAILY PO Last administered on 10/17/18 09:08; Admin Dose 30 MG; Start 10/10/18 at 09:00 Epoetin Arpan (Epogen (Esrd)) 10,000 units TuSa@1300 SC Last administered on 10/15/18 13:20; Admin Dose 10,000 UNITS; Start 10/11/18 at 13:00 Gabapentin (Neurontin Liquid) 400 mg Q8 GTB Last administered on 10/17/18 13:07; Admin Dose 400 MG; Start 10/09/18 at 15:30 Hydralazine HCl (Apresoline) 10 mg Q4H PRN IV ELEVATED BLOOD PRESSURE; Start 10/09/18 at 14:00 Hydromorphone HCl (Dilaudid) 4 mg Q4H PRN PO MODERATE PAIN LEVEL 7-10 Last administered on 10/17/18 17:20; Admin Dose 4 MG; Start 10/09/18 at 14:00 Hydroxychloroquine Sulfate (Plaquenil) 200 mg BID PO Last administered on 10/17/18 09:11; Admin Dose 200 MG; Start 10/09/18 at 21:00 Diagnostic Test (Pha) (Accu-Chek) 1 ea 02 XX Last administered on 10/17/18 02:32; Admin Dose 1 EA; Start 10/10/18 at 02:00 Insulin Aspart (Novolog Insulin Pen) NOVOLOG *CUSTOM* ALGORITHM Q6H SC Last ad ministered on 10/17/18 02:32; Admin Dose 1 UNIT; Start 10/09/18 at 14:00 Lactobacillus Acidophilus (Florajen3 Capsule) 1 each BID GTB Last administered on 10/17/18 09:08; Admin Dose 1 EACH; Start 10/09/18 at 21:00 Lansoprazole (Prevacid) 30 mg BID@,18 GTB Last administered on 10/17/18 17:19; Admin Dose 30 MG; Start 10/09/18 at 18:00 Levetiracetam (Keppra Liquid) 500 mg BID GTB Last administered on 10/17/18 09:09; Admin Dose 500 MG; Start 10/09/18 at 21:00 Magnesium Oxide (Mag-Ox 400) 400 mg BID GTB Last administered on 10/17/18 09:09; Admin Dose 400 MG; Start 10/09/18 at 21:00 Metoclopramide HCl (Reglan) 10 mg TID IV Last administered on 10/17/18 12:20; Admin Dose 10 MG; Start 10/09/18 at 21:00 Miconazole Nitrate (Miconazole 2% Cr) 1 applic BID TOP Last administered on 10/17/18 09:11; Admin Dose 1 APPLIC; Start 10/09/18 at 21:00 Miconazole Nitrate (Miconazole 2% Cr) 1 applic Q12 PRN TOP rash; Start 10/09/18 at 14:00 Ondansetron HCl (Zofran Inj) 4 mg Q4H PRN IV NAUSEA AND/OR VOMITING Last administered on 10/16/18 21:31; Admin Dose 4 MG; Start 10/09/18 at 14:00 Polyethylene Glycol (Miralax) 17 gm DAILY PRN GTB CONSTIPATION; Start 10/09/18 at 14:00 Senna (Senokot) 2 tab Q8 PRN PO CONSTIPATION; Start 10/09/18 at 14:00 Trimethoprim/ Sulfamethoxazole (Bactrim Susp) 40 ml DAILY GTB Last administered on 10/17/18 09:10; Admin Dose 40 ML; Start 10/10/18 at 09:00 Zolpidem Tartrate (Ambien) 5 mg HS PRN PO INSOMNIA Last administered on 10/17/18 03:39; Admin Dose 5 MG; Start 10/09/18 at 14:00 Miscellaneous Information 1 ea NOTE XX ; Start 10/09/18 at 15:00 Glucose (Glutose) 15 gm Q15M PRN PO DECREASED GLUCOSE; Start 10/09/18 at 15:00 Glucose (Glutose) 22.5 gm Q15M PRN PO DECREASED GLUCOSE; Start 10/09/18 at 15:00 Dextrose (D50w Syringe) 25 ml Q15M PRN IV DECREASED GLUCOSE; Start 10/09/18 at 15:00 Dextrose (D50w Syringe) 50 ml Q15M PRN IV DECREASED GLUCOSE; Start 10/09/18 at 15:00 Glucagon (Glucagen) 1 mg Q15M PRN IM DECREASED GLUCOSE; Start 10/09/18 at 15:00 Glucose (Glutose) 15 gm Q15M PRN BUCCAL DECREASED GLUCOSE; Start 10/09/18 at 15:00 Sodium Chloride 500 ml @ 500 mls/hr Q1H PRN IV BLOOD PRESSURE SUPPORT Last administered on 10/10/18at 07:59; Admin Dose 500 MLS/HR; Start 10/09/18 at 19:30 Albuterol (Ventolin Hfa) 4 puff Q6H RESP THERAPY INH Last administered on 10/17/18 13:46; Admin Dose 4 PUFF; Start 10/10/18 at 02:00 Ipratropium [place] (Atrovent Hfa) 4 puff Q6H RESP THERAPY INH Last administered on 10/17/18 13:46; Admin Dose 4 PUFF; Start 10/10/18 at 02:00 Methylprednisolone Sodium Succinate (Solu-Medrol) 40 mg Q8 IV Last administered on 10/17/18 13:06; Admin Dose 40 MG; Start 10/14/18 at 14:00 Quetiapine Fumarate (Seroquel) 50 mg BID GTB Last administered on 10/17/18 09:08; Admin Dose 50 MG; Start 10/14/18 at 13:30 Lorazepam (Ativan) 1 mg Q4H PRN GTB AGITATION/ANXIETY Last administered on 10/17/18 17:19; Admin Dose 1 MG; Start 10/14/18 at 13:00 Lisinopril (Zestril) 2.5 mg DAILY PO Last administered on 3/4/19at 09:10; Admin Dose 2.5 MG; Start 10/15/18 at 09:00 Hydromorphone HCl (Dilaudid) 2 mg Q4H PRN PO PAIN LEVEL 4-6; Start 10/14/18 at 17:30 Fentanyl (Duragesic 50 Mcg/Hr Patch) 1 patch Q72H TRANSDERM Last administered on 10/14/18at 20:18; Admin Dose 1 PATCH; Start 10/14/18 at 18:30 Linagliptin (Tradjenta) 5 mg DAILY PO Last administered on 10/17/18at 09:08; Admin Dose 5 MG; Start 10/16/18 at 10:30 Carvedilol (Coreg) 6.25 mg BID PO ; Start 10/17/18 at 21:00 Digoxin (Digoxin) 250 mcg Q6H IV Last administered on 10/17/18at 17:18; Admin Dose 250 MCG; Start 10/17/18 at 12:00; Stop 10/17/18 at 20:00 Calcium Carbonate (Ca Carbonate) 1,250 mg TID GTB Last administered on 10/17/18at 15:48; Admin Dose 1,250 MG; Start 10/17/18 at 14:00 NEMO MARTINEZ M.D. Oct 17, 2018 18:17
--- NOTE | 2018-10-17 18:32 | PN ---
Date/Time of Note Date/Time of Note DATE: 10/17/18 TIME: 18:32 Assessment/Plan VTE Prophylaxis Risk score (from Ns)>0 risk: 6 SCD applied (from Ns): Yes Pharmacological prophylaxis: LMWH Lines/Catheters IV Catheter Type (from Nrs): Mid Line Urinary Cath still in place: No Assessment/Plan Hospital Course Patient continues on ventilatory support, tachycardic, low-grade fever gets kevin tated and anxious at times Assessment/Plan - Acute on chronic hypoxemic respiratory failure with underlying ARDS, continue ventilatory support. Dr. Villa is following in pulmonology consultation. -Tachycardia, Dr. Joshi is following in cardiology consultation. - Cardiomyopathy with EF 35-40% - Rheumatoid arthritis. The patient's pain seems to be controlled with the curr ent dose of fentanyl. - Dysphagia. Continue tube feeding. - Anemia of chronic disease. - Hypoparathyroidism with recent hypercalcemia, status post pamidronate. Ionized calcium is normal. - Hypertension. - Quadriplegia 2 to severe cervical spinal cord stenosis with cord compression from C3-C5, s/p laminectomy. Critical care time spent 35 minutes. Further recommendations based on clinical course. Plan of care discussed with Dr. Rosales Result Diagram: 10/17/18 0441 10/17/18 0441 Results 24hrs Laboratory Tests Test 10/16/18 21:03 10/17/18 02:27 10/17/18 04:41 10/17/18 05:00 Bedside Glucose 156 171 White Blood Count 27.5 H Red Blood Count 3.25 L Hemoglobin 9.3 L Hematocrit 30.1 L Mean Corpuscular 92.6 Volume Mean Corpuscular 28.6 L Hemoglobin Mean Corpuscular 30.9 L Hemoglobin Concent Red Cell 17.5 H Distribution Width Platelet Count 518 H Mean Platelet 10.7 H Volume Immature 5.500 H Granulocytes % Neutrophils % 80.8 H Lymphocytes % 5.3 L Monocytes % 8.0 Eosinophils % 0.0 Basophils % 0.4 Nucleated Red 0.3 H Blood Cells % Immature 1.520 H Granulocytes # Neutrophils # 22.3 H Lymphocytes # 1.5 Monocytes # 2.2 H Eosinophils # 0.0 Basophils # 0.1 Nucleated Red 0.1 H Blood Cells # Sodium Level 137 Potassium Level 4.5 Chloride Level 94 L Carbon Dioxide 37 H Level Anion Gap 6 Blood Urea 26 H Nitrogen Creatinine 0.56 L Est Glomerular > 60 Filtrat Rate mL/min Glucose Level 157 Calcium Level 6.5 L Blood Gas Specimen Blood arterial Source Arterial Blood 10/17/2018 4:50:44 Date Drawn AM Arterial Blood pH 7.335 L (Temp corrected) Arterial Blood 63.6 H pCO2 (Temp correct) Arterial Blood pO2 124.3 H (Temp corrected) Arterial Blood 33.2 H HCO3 Arterial Blood 5.6 H Base Excess Arterial Blood 98.3 H Oxygen Saturation Chandler Test ACCEPTAB Arterial Blood Gas Left Radial Puncture Site Arterial 0.9 Blood Carboxyhemog lobin Arterial Blood 0.1 Methemoglobin Blood Gas A-a O2 379.3 H Differential Oxyhemoglobin 97.3 Percent Blood Gas 37.0 Temperature Blood Gas 20.0 Respiration Rate Blood Gas Actual 20 Respiration Rate Blood Gas Modality VENT - PC FiO2 80.0 Blood Gas Low PEEP 10.0 Setting Blood Gas 20.0 Inspiratory Pressure Blood Gas Notified UP Whom Blood Gas Notified 10/17/2018 5:39:22 Time AM Test 10/17/18 08:21 10/17/18 13:20 Bedside Glucose 133 143 Exam/Review of Systems Exam Vitals Vital Signs Date Temp Pulse Resp B/P (MAP) Pulse Ox O2 O2 Flow FiO2 Time Delivery Rate 10/17/18 117 22 107/76 98 Mechanical 18:00 (86) Ventilator 10/17/18 70 17:04 10/17/18 98.2 16:00 Intake and Output 10/16/18 10/16/18 10/17/18 1515:00 23:00 07:00 IntakeIntake Total 960 ml 840 ml 840 ml OutputOutput Total 355 ml 540 ml 1155 ml BalanceBalance 605 ml 300 ml -315 ml Constitutional: alert, oriented, frail Head: normocephalic Neck: other (trach) Respiratory: diminished breath sounds Cardiovascular: regular rate and rhythm Gastrointestinal: soft, non-tender, other Musculoskeletal: other (Quadriplegia) Neurological: nl mental status Results Results 24hrs Laboratory Tests Test 10/16/18 21:03 10/17/18 02:27 10/17/18 04:41 10/17/18 05:00 Bedside Glucose 156 171 White Blood Count 27.5 H Red Blood Count 3.25 L Hemoglobin 9.3 L Hematocrit 30.1 L Mean Corpuscular 92.6 Volume Mean Corpuscular 28.6 L Hemoglobin Mean Corpuscular 30.9 L Hemoglobin Concent Red Cell 17.5 H Distribution Width Platelet Count 518 H Mean Platelet 10.7 H Volume Immature 5.500 H Granulocytes % Neutrophils % 80.8 H Lymphocytes % 5.3 L Monocytes % 8.0 Eosinophils % 0.0 Basophils % 0.4 Nucleated Red 0.3 H Blood Cells % Immature 1.520 H Granulocytes # Neutrophils # 22.3 H Lymphocytes # 1.5 Monocytes # 2.2 H Eosinophils # 0.0 Basophils # 0.1 Nucleated Red 0.1 H Blood Cells # Sodium Level 137 Potassium Level 4.5 Chloride Level 94 L Carbon Dioxide 37 H Level Anion Gap 6 Blood Urea 26 H Nitrogen Creatinine 0.56 L Est Glomerular > 60 Filtrat Rate mL/min Glucose Level 157 Calcium Level 6.5 L Blood Gas Specimen Blood arterial Source Arterial Blood 10/17/2018 4:50:44 Date Drawn AM Arterial Blood pH 7.335 L (Temp corrected) Arterial Blood 63.6 H pCO2 (Temp correct) Arterial Blood pO2 124.3 H (Temp corrected) Arterial Blood 33.2 H HCO3 Arterial Blood 5.6 H Base Excess Arterial Blood 98.3 H Oxygen Saturation Chandler Test ACCEPTAB Arterial Blood Gas Left Radial Puncture Site Arterial 0.9 Blood Carboxyhemog lobin Arterial Blood 0.1 Methemoglobin Blood Gas A-a O2 379.3 H Differential Oxyhemoglobin 97.3 Percent Blood Gas 37.0 Temperature Blood Gas 20.0 Respiration Rate Blood Gas Actual 20 Respiration Rate Blood Gas Modality VENT - PC FiO2 80.0 Blood Gas Low PEEP 10.0 Setting Blood Gas 20.0 Inspiratory Pressure Blood Gas Notified UP Whom Blood Gas Notified 10/17/2018 5:39:22 Time AM Test 10/17/18 08:21 10/17/18 13:20 Bedside Glucose 133 143 Medications Medication Current Medications Acetaminophen (Tylenol Liquid) 650 mg Q4H PRN GTB MILD PAIN(1-3)OR ELEVATED TEMP Last administered on 10/16/18 07:52; Admin Dose 650 MG; Start 10/09/18 at 14:00 Al Hydrox/Mg Hydrox/Simethicone (Mag-Al Plus) 15 ml Q6H PRN PO GASTROINTESTINAL UPSET Last administered on 10/17/18 13:18; Admin Dose 15 ML; Start 10/09/18 at 14:00 Eye Lubricant (Artificial Tears Oph) 1 drop Q6H PRN BOTH EYES DRY EYES; Start 10/09/18 at 14:00 Bisacodyl (Dulcolax Supp) 10 mg DAILY PRN [place] CONSTIPATION; Start 10/09/18 at 14:00 Clonidine (Catapres) 0.1 mg DAILY PRN GTB ELEVATED BLOOD PRESSURE; Start 10/09/18 at 14:00 Diltiazem HCl (Cardizem Iv) 5 mg Q4 PRN IV ELEVATED HEART RATE Last administered on 10/16/18 21:41; Admin Dose 5 MG; Start 10/09/18 at 14:00 Diphenhydramine HCl (Benadryl Liquid Cup) 25 mg Q6 PRN GTB ITCHING Last administered on 10/16/18 15:55; Admin Dose 25 MG; Start 10/09/18 at 14:00 Duloxetine HCl (Cymbalta) 30 mg DAILY PO Last administered on 10/17/18 09:08; Admin Dose 30 MG; Start 10/10/18 at 09:00 Epoetin Arpan (Epogen (Esrd)) 10,000 units TuSa@1300 SC Last administered on 10/15/18 13:20; Admin Dose 10,000 UNITS; Start 10/11/18 at 13:00 Gabapentin (Neurontin Liquid) 400 mg Q8 GTB Last administered on 10/17/18 13:07; Admin Dose 400 MG; Start 10/09/18 at 15:30 Hydralazine HCl (Apresoline) 10 mg Q4H PRN IV ELEVATED BLOOD PRESSURE; Start 10/09/18 at 14:00 Hydromorphone HCl (Dilaudid) 4 mg Q4H PRN PO MODERATE PAIN LEVEL 7-10 Last administered on 10/17/18 17:20; Admin Dose 4 MG; Start 10/09/18 at 14:00 Hydroxychloroquine Sulfate (Plaquenil) 200 mg BID PO Last administered on 10/17/18 09:11; Admin Dose 200 MG; Start 10/09/18 at 21:00 Diagnostic Test (Pha) (Accu-Chek) 1 ea 02 XX Last administered on 10/17/18 02:32; Admin Dose 1 EA; Start 10/10/18 at 02:00 Insulin Aspart (Novolog Insulin Pen) NOVOLOG *CUSTOM* ALGORITHM Q6H SC Last administered on 10/17/18 02:32; Admin Dose 1 UNIT; Start 10/09/18 at 14:00 Lactobacillus Acidophilus (Florajen3 Capsule) 1 each BID GTB Last administered on 10/17/18 09:08; Admin Dose 1 EACH; Start 10/09/18 at 21:00 Lansoprazole (Prevacid) 30 mg BID@,18 GTB Last administered on 10/17/18 17:19; Admin Dose 30 MG; Start 10/09/18 at 18:00 Levetiracetam (Keppra Liquid) 500 mg BID GTB Last administered on 10/17/18 09:09; Admin Dose 500 MG; Start 10/09/18 at 21:00 Magnesium Oxide (Mag-Ox 400) 400 mg BID GTB Last administered on 10/17/18 09:09; Admin Dose 400 MG; Start 10/09/18 at 21:00 Metoclopramide HCl (Reglan) 10 mg TID IV Last administered on 10/17/18 12:20; Admin Dose 10 MG; Start 10/09/18 at 21:00 Miconazole Nitrate (Miconazole 2% Cr) 1 applic BID TOP Last administered on 10/17/18 09:11; Admin Dose 1 APPLIC; Start 10/09/18 at 21:00 Miconazole Nitrate (Miconazole 2% Cr) 1 applic Q12 PRN TOP rash; Start 10/09/18 at 14:00 Ondansetron HCl (Zofran Inj) 4 mg Q4H PRN IV NAUSEA AND/OR VOMITING Last administered on 10/16/18 21:31; Admin Dose 4 MG; Start 10/09/18 at 14:00 Polyethylene Glycol (Miralax) 17 gm DAILY PRN GTB CONSTIPATION; Start 10/09/18 at 14:00 Senna (Senokot) 2 tab Q8 PRN PO CONSTIPATION; Start 10/09/18 at 14:00 Trimethoprim/ Sulfamethoxazole (Bactrim Susp) 40 ml DAILY GTB Last administered on 10/17/18 09:10; Admin Dose 40 ML; Start 10/10/18 at 09:00 Zolpidem Tartrate (Ambien) 5 mg HS PRN PO INSOMNIA Last administered on 10/17/18 03:39; Admin Dose 5 MG; Start 10/09/18 at 14:00 Miscellaneous Information 1 ea NOTE XX ; Start 10/09/18 at 15:00 Glucose (Glutose) 15 gm Q15M PRN PO DECREASED GLUCOSE; Start 10/09/18 at 15:00 Glucose (Glutose) 22.5 gm Q15M PRN PO DECREASED GLUCOSE; Start 10/09/18 at 15:00 Dextrose (D50w Syringe) 25 ml Q15M PRN IV DECREASED GLUCOSE; Start 10/09/18 at 15:00 Dextrose (D50w Syringe) 50 ml Q15M PRN IV DECREASED GLUCOSE; Start 10/09/18 at 15:00 Glucagon (Glucagen) 1 mg Q15M PRN IM DECREASED GLUCOSE; Start 10/09/18 at 15:00 Glucose (Glutose) 15 gm Q15M PRN BUCCAL DECREASED GLUCOSE; Start 10/09/18 at 15:00 Sodium Chloride 500 ml @ 500 mls/hr Q1H PRN IV BLOOD PRESSURE SUPPORT Last administered on 10/10/18 07:59; Admin Dose 500 MLS/HR; Start 10/09/18 at 19:30 Albuterol (Ventolin Hfa) 4 puff Q6H RESP THERAPY INH Last administered on 10/17/18 13:46; Admin Dose 4 PUFF; Start 10/10/18 at 02:00 Ipratropium [place] (Atrovent Hfa) 4 puff Q6H RESP THERAPY INH Last administered on 10/17/18 13:46; Admin Dose 4 PUFF; Start 10/10/18 at 02:00 Methylprednisolone Sodium Succinate (Solu-Medrol) 40 mg Q8 IV Last administered on 10/17/18 13:06; Admin Dose 40 MG; Start 10/14/18 at 14:00 Quetiapine Fumarate (Seroquel) 50 mg BID GTB Last administered on 10/17/18 09:08; Admin Dose 50 MG; Start 10/14/18 at 13:30 Lorazepam (Ativan) 1 mg Q4H PRN GTB AGITATION/ANXIETY Last administered on 10/17/18 17:19; Admin Dose 1 MG; Start 10/14/18 at 13:00 Lisinopril (Zestril) 2.5 mg DAILY PO Last administered on 10/17/18 09:10; Admin Dose 2.5 MG; Start 10/15/18 at 09:00 Hydromorphone HCl (Dilaudid) 2 mg Q4H PRN PO PAIN LEVEL 4-6; Start 10/14/18 at 17:30 Fentanyl (Duragesic 50 Mcg/Hr Patch) 1 patch Q72H TRANSDERM Last administered on 10/14/18at 20:18; Admin Dose 1 PATCH; Start 10/14/18 at 18:30 Linagliptin (Tradjenta) 5 mg DAILY PO Last administered on 10/17/18 09:08; Admin Dose 5 MG; Start 10/16/18 at 10:30 Carvedilol (Coreg) 6.25 mg BID PO ; Start 10/17/18 at 21:00 Digoxin (Digoxin) 250 mcg Q6H IV Last administered on 10/17/18 17:18; Admin Dose 250 MCG; Start 10/17/18 at 12:00; Stop 10/17/18 at 20:00 Calcium Carbonate (Ca Carbonate) 1,250 mg TID GTB Last administered on 10/17/18at 15:48; Admin Dose 1,250 MG; Start 10/17/18 at 14:00 CAROLYN LANGLEY Oct 17, 2018 18:32
[2018-10-17] MEDS: FENTAnyl PATCH 50 MCG/HR TRANSDERM SCH (20:56)
[2018-10-17] MEDS: DIPHENHYDRAMINE 2.5 MG/ML 5ML CUP GTB PRN (23:27)
[2018-10-18] VITALS (37 sets, daily range): BP systolic 89–154; BP diastolic 61–113; PULSE 103–143; RESP 21–35
[2018-10-18] MEDS: DILTIAZEM 25 MG INJ IV PRN (01:09)
[2018-10-18] MEDS: ALBUTEROL HFA 8 GM INHALER INH SCH ×4 (01:17→19:54)
[2018-10-18] MEDS: IPRATROPIUM (HFA) 12.9 GM INHALER INH SCH ×4 (01:17→19:54)
[2018-10-18] MEDS: LORAZEPAM 1 MG TAB GTB PRN ×5 (01:18→23:22)
[2018-10-18] MEDS: HYDROmorphONE 2 MG TAB PO PRN ×6 (01:19→23:23)
[2018-10-18] MEDS: INSULIN ASPART [NOVOLOG] 3 ML PEN SC SCH ×4 (02:00→21:17)
[2018-10-18] MEDS: ACCU-CHEK XX SCH (02:19)
[2018-10-18] MEDS: METHYLPREDNISOLONE 40 MG INJ IV SCH ×3 (05:17→21:21)
[2018-10-18] MEDS: LANSOPRAZOLE 30 MG CAP GTB SCH ×2 (05:17→17:09)
[2018-10-18] MEDS: GABAPENTIN (50 MG/ML PO SYG) GTB SCH ×3 (05:18→21:21)
--- NOTE | 2018-10-18 07:25 | CONS ---
Assessment/Plan Assessment/Plan Hospital Course (Demo Recall) 53 yo male pt in [place] transferred to ICU for increased O2 demands Interval hx: WBC 27.5.->31.8 Stool cx positive for VRE. Pt is on Vanco and followed by ID. Pt states he feels out of breath. No changes in CXR. On 70% FiO2. Down from yesterday. High anxiety. Tolerating tube feeds. Rectal tube. 1. Respiratory failure secondary to pneumonia versus interstitial pneumonitis from rheumatoid arthritis versus mild aspiration. -on Bactrim 2. Severe rheumatoid arthritis. 3. Quadriplegia. 4. Adrenal insufficiency. 5. Gastroparesis. -Reglan, denies nausea 6. Hypothyroidism. 7. Chronic pain syndrome. 8. Hypertension. 9. Diarrhea -VRE in stool -FOB neg Swallow eval: Impression: Oropharyngeal dysphagia associated with reduced oropharyngeal strength/coordination, delayed timing of swallowing and reduced coordination of breath with swallow safety impacting swallow safety. Pt is not safe to initiate p.o intake and is at high risk of aspiration. Recommendation: 1. Initiate dysphagia therapy 3-5x per week for 1-2 weeks 2. Keep NPO+PEG tube feeds for primary means of nutrition/hydration/medication delivery 3. Anticipate need for in-line PMV evaluation one respiratory status improves and is stabilized 4. ongoing assessment and BOT and oropharyngeal strengthening exercises, aswell as pt/family education and counseling 5. Anticipate need for MBSS prior to initiation of p.o intake PLAN: ID recommendations Continue present care Nothing by mouth per swallow eval results Continue with tube feeds check residuals q 4 hours Continue Reglan. Aspiration precautions Continue with abx Pt examined and plan of care discussed with DR Minaya Consultation Date/Type/Reason Admit Date/Time Oct 09, 2018 at 12:16 Initial Consult Date 10/09/18 Requesting Provider: NOLA VIDAL MD Date/Time of Note DATE: 10/18/18 TIME: 07:19 Exam/Review of Systems Exam Vitals Vital Signs Date Temp Pulse Resp B/P (MAP) Pulse Ox O2 O2 Flow FiO2 Time Delivery Rate 10/18/18 130 32 138/96 93 Mechanical 07:00 (110) Ventilator 10/18/18 70 05:40 10/18/18 99.6 04:00 Intake and Output 10/17/18 10/17/18 10/18/18 1515:00 23:00 07:00 IntakeIntake Total 1080 ml 960 ml 640 ml OutputOutput Total 40 ml 705 ml 710 ml BalanceBalance 1040 ml 255 ml -70 ml Constitutional: alert, oriented Psych: no complaints Head: normocephalic Eyes: PERRL Respiratory: other (non labored) Cardiovascular: regular rate and rhythm Gastrointestinal: soft, non-tender Musculoskeletal: muscle weakness Neurological: nl mental status Results Result Diagram: 10/18/182 10/18/18 0442 Results 24hrs Laboratory Tests Test 10/17/18 08:21 10/17/18 13:20 10/17/18 19:54 10/18/18 02:18 Bedside Glucose 133 143 152 136 Test 10/18/18 04:42 White Blood Count 31.8 H Red Blood Count 3.58 L Hemoglobin 10.4 L Hematocrit 32.8 L Mean Corpuscular Volume 91.6 Mean Corpuscular 29.1 Hemoglobin Mean Corpuscular 31.7 L Hemoglobin Concent Red Cell Distribution 18.0 H Width Platelet Count 591 H Mean Platelet Volume 10.9 H Immature Granulocytes % 4.700 H Neutrophils % Lymphocytes % Monocytes % Eosinophils % Basophils % Nucleated Red Blood 0.5 H Cells % Immature Granulocytes # 1.490 H Neutrophils # Lymphocytes # Monocytes # Eosinophils # Basophils # Nucleated Red Blood Cells # Sodium Level 137 Potassium Level 4.5 Chloride Level 95 L Carbon Dioxide Level 35 H Anion Gap 7 Blood Urea Nitrogen 27 H Creatinine 0.50 L Est Glomerular Filtrat > 60 Rate mL/min Glucose Level 134 Calcium Level 6.6 L Phosphorus Level 3.8 Magnesium Level 1.9 Total Bilirubin 0.0 L Direct Bilirubin 0.00 Indirect Bilirubin 0.0 Aspartate Amino 33 Transf (AST/SGOT) Alanine 19 Aminotransferase (ALT/SG PT) Alkaline Phosphatase 210 H Total Protein 6.4 Albumin 3.3 Globulin 3.10 Albumin/Globulin Ratio 1.06 Medications Medication Current Medications Acetaminophen (Tylenol Liquid) 650 mg Q4H PRN GTB MILD PAIN(1-3)OR ELEVATED TEMP Last administered on 10/16/18at 07:52; Admin Dose 650 MG; Start 10/09/18 at 14:00 Al Hydrox/Mg Hydrox/Simethicone (Mag-Al Plus) 15 ml Q6H PRN PO GASTROINTESTINAL UPSET Last administered on 3/4/19at 13:18; Admin Dose 15 ML; Start 10/09/18 at 14:00 Eye Lubricant (Artificial Tears Oph) 1 drop Q6H PRN BOTH EYES DRY EYES; Start 10/09/18 at 14:00 Bisacodyl (Dulcolax Supp) 10 mg DAILY PRN [place] CONSTIPATION; Start 10/09/18 at 14:00 Clonidine (Catapres) 0.1 mg DAILY PRN GTB ELEVATED BLOOD PRESSURE; Start 10/09/18 at 14:00 Diltiazem HCl (Cardizem Iv) 5 mg Q4 PRN IV ELEVATED HEART RATE Last administered on 10/18/18 01:09; Admin Dose 5 MG; Start 10/09/18 at 14:00 Diphenhydramine HCl (Benadryl Liquid Cup) 25 mg Q6 PRN GTB ITCHING Last administered on 10/17/18 23:27; Admin Dose 25 MG; Start 10/09/18 at 14:00 Duloxetine HCl (Cymbalta) 30 mg DAILY PO Last administered on 10/17/18 09:08; Admin Dose 30 MG; Start 10/10/18 at 09:00 Epoetin Arpan (Epogen (Esrd)) 10,000 units TuSa@1300 SC Last administered on 10/15/18 13:20; Admin Dose 10,000 UNITS; Start 10/11/18 at 13:00 Gabapentin (Neurontin Liquid) 400 mg Q8 GTB Last administered on 10/18/18 05:1 8; Admin Dose 400 MG; Start 10/09/18 at 15:30 Hydralazine HCl (Apresoline) 10 mg Q4H PRN IV ELEVATED BLOOD PRESSURE; Start 10/09/18 at 14:00 Hydromorphone HCl (Dilaudid) 4 mg Q4H PRN PO MODERATE PAIN LEVEL 7-10 Last administered on 10/18/18 05:18; Admin Dose 4 MG; Start 10/09/18 at 14:00 Hydroxychloroquine Sulfate (Plaquenil) 200 mg BID PO Last administered on 10/17/18 21:41; Admin Dose 200 MG; Start 10/09/18 at 21:00 Diagnostic Test (Pha) (Accu-Chek) 1 ea 02 XX Last administered on 10/18/18 02:19; Admin Dose 1 EA; Start 10/10/18 at 02:00 Insulin Aspart (Novolog Insulin Pen) NOVOLOG *CUSTOM* ALGORITHM Q6H SC Last administered on 10/17/18 20:01; Admin Dose 1 UNIT; Start 10/09/18 at 14:00 Lactobacillus Acidophilus (Florajen3 Capsule) 1 each BID GTB Last administered on 10/17/18 22:38; Admin Dose 1 EACH; Start 10/09/18 at 21:00 Lansoprazole (Prevacid) 30 mg BID@,18 GTB Last administered on 10/18/18 05:17; Admin Dose 30 MG; Start 10/09/18 at 18:00 Levetiracetam (Keppra Liquid) 500 mg BID GTB Last administered on 10/17/18 21:40; Admin Dose 500 MG; Start 10/09/18 at 21:00 Magnesium Oxide (Mag-Ox 400) 400 mg BID GTB Last administered on 10/17/18 21:41; Admin Dose 400 MG; Start 10/09/18 at 21:00 Metoclopramide HCl (Reglan) 10 mg TID IV Last administered on 10/17/18 21:40; Admin Dose 10 MG; Start 10/09/18 at 21:00 Miconazole Nitrate (Miconazole 2% Cr) 1 applic BID TOP Last administered on 10/17/18 21:42; Admin Dose 1 APPLIC; Start 10/09/18 at 21:00 Miconazole Nitrate (Miconazole 2% Cr) 1 applic Q12 PRN TOP rash; Start 10/09/18 at 14:00 Ondansetron HCl (Zofran Inj) 4 mg Q4H PRN IV NAUSEA AND/OR VOMITING Last administered on 10/16/18 21:31; Admin Dose 4 MG; Start 10/09/18 at 14:00 Polyethylene Glycol (Miralax) 17 gm DAILY PRN GTB CONSTIPATION; Start 10/09/18 at 14:00 Senna (Senokot) 2 tab Q8 PRN PO CONSTIPATION; Start 10/09/18 at 14:00 Trimethoprim/ Sulfamethoxazole (Bactrim Susp) 40 ml DAILY GTB Last administered on 10/17/18 09:10; Admin Dose 40 ML; Start 10/10/18 at 09:00 Zolpidem Tartrate (Ambien) 5 mg HS PRN PO INSOMNIA Last administered on 10/17/18 03:39; Admin Dose 5 MG; Start 10/09/18 at 14:00 Miscellaneous Information 1 ea NOTE XX ; Start 10/09/18 at 15:00 Glucose (Glutose) 15 gm Q15M PRN PO DECREASED GLUCOSE; Start 10/09/18 at 15:00 Glucose (Glutose) 22.5 gm Q15M PRN PO DECREASED GLUCOSE; Start 10/09/18 at 15:00 Dextrose (D50w Syringe) 25 ml Q15M PRN IV DECREASED GLUCOSE; Start 10/09/18 at 15:00 Dextrose (D50w Syringe) 50 ml Q15M PRN IV DECREASED GLUCOSE; Start 10/09/18 at 15:00 Glucagon (Glucagen) 1 mg Q15M PRN IM DECREASED GLUCOSE; Start 10/09/18 at 15:00 Glucose (Glutose) 15 gm Q15M PRN BUCCAL DECREASED GLUCOSE; Start 10/09/18 at 15:00 Sodium Chloride 500 ml @ 500 mls/hr Q1H PRN IV BLOOD PRESSURE SUPPORT Last administered on 10/10/18at 07:59; Admin Dose 500 MLS/HR; Start 10/09/18 at 19:30 Albuterol (Ventolin Hfa) 4 puff Q6H RESP THERAPY INH Last administered on 10/18/18 01:17; Admin Dose 4 PUFF; Start 10/10/18 at 02:00 Ipratropium [place] (Atrovent Hfa) 4 puff Q6H RESP THERAPY INH Last administered on 10/18/18 01:17; Admin Dose 4 PUFF; Start 10/10/18 at 02:00 Methylprednisolone Sodium Succinate (Solu-Medrol) 40 mg Q8 IV Last administered on 10/18/18 05:17; Admin Dose 40 MG; Start 10/14/18 at 14:00 Quetiapine Fumarate (Seroquel) 50 mg BID GTB Last administered on 10/17/18 21:43; Admin Dose 50 MG; Start 10/14/18 at 13:30 Lorazepam (Ativan) 1 mg Q4H PRN GTB AGITATION/ANXIETY Last administered on 10/18/18 05:18; Admin Dose 1 MG; Start 10/14/18 at 13:00 Lisinopril (Zestril) 2.5 mg DAILY PO Last administered on 10/17/18 09:10; Admin Dose 2.5 MG; Start 10/15/18 at 09:00 Hydromorphone HCl (Dilaudid) 2 mg Q4H PRN PO PAIN LEVEL 4-6; Start 10/14/18 at 17:30 Linagliptin (Tradjenta) 5 mg DAILY PO Last administered on 10/17/18 09:08; Admin Dose 5 MG; Start 10/16/18 at 10:30 Carvedilol (Coreg) 6.25 mg BID PO Last administered on 10/17/18 21:41; Admin Dose 6.25 MG; Start 10/17/18 at 21:00 Calcium Carbonate (Ca Carbonate) 1,250 mg TID GTB Last administered on 10/17/18 21:40; Admin Dose 1,250 MG; Start 10/17/18 at 14:00 Fentanyl (Duragesic 50 Mcg/Hr Patch) 1 patch Q72H TRANSDERM Last administered on 10/17/18 20:56; Admin Dose 1 PATCH; Start 10/17/18 at 20:30 MARYANN HACKETT Oct 18, 2018 07:25
--- NOTE | 2018-10-18 08:07 | CONS ---
Assessment/Plan Assessment/Plan Assessment/Plan (Daily) Ventilator settings; assist control of 20, pressure controlled, PEEP of 10, 70% FiO2. Assessment and recommendations; 1. Patient with history of VD RF and ARDS admitted for recurrent pneumonia, cur rently on appropriate antimicrobial regimen. 2. Functional quadriplegia. 3. Mild thrombocytosis. 4. History of hypertension. 5. Persistent leukocytosis. Continue current supportive care. Prognosis is very poor. Consultation Date/Type/Reason Admit Date/Time Oct 09, 2018 at 12:16 Initial Consult Date 10/12/18 Requesting Provider: NOLA VIDAL MD Date/Time of Note DATE: 10/18/18 TIME: 08:04 24 HR Interval Summary Free Text/Dictation Patient's condition remains tenuous at best. Still requiring 70% FiO2 and on pressure control mode of ventilation. General exam; middle-aged male, on ventilator via tracheostomy, awake and alert. Able to talk somewhat. Currently no distress. Appears anxious though. Exam/Review of Systems Exam Vitals Vital Signs Date Temp Pulse Resp B/P (MAP) Pulse Ox O2 O2 Flow FiO2 Time Delivery Rate 10/18/18 130 32 138/96 93 Mechanical 07:00 (110) Ventilator 10/18/18 70 05:40 10/18/18 99.6 04:00 Intake and Output 10/17/18 10/17/18 10/18/18 1414:59 22:59 06:59 IntakeIntake Total 1080 ml 960 ml 640 ml OutputOutput Total 440 ml 630 ml 725 ml BalanceBalance 640 ml 330 ml -85 ml Exam HEENT exam; supple neck, no JVD. No lymphadenopathy. Midline trachea. No thyromegaly. Tracheostomy in place. Patient is edentulous. Chest exam; bilateral crackles. S1-S2 audible, no murmurs. Tachycardic. Regu lar rhythm. Abdomen exam; soft, scaphoid. Nontender. G-tube in place. No organomegaly. Bowel sounds audible. Extremity exam; no peripheral edema. 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 Able to move right upper extremity to some extent. Results Result Diagram: 10/18/18 0442 10/18/18 0442 Results 24hrs Laboratory Tests Test 10/17/18 08:21 10/17/18 13:20 10/17/18 19:54 10/18/18 02:18 Bedside Glucose 133 143 152 136 Test 10/18/18 04:42 White Blood Count 31.8 H Red Blood Count 3.58 L Hemoglobin 10.4 L Hematocrit 32.8 L Mean Corpuscular Volume 91.6 Mean Corpuscular 29.1 Hemoglobin Mean Corpuscular 31.7 L Hemoglobin Concent Red Cell Distribution 18.0 H Width Platelet Count 591 H Mean Platelet Volume 10.9 H Immature Granulocytes % 4.700 H Neutrophils % Lymphocytes % Monocytes % Eosinophils % Basophils % Nucleated Red Blood 0.5 H Cells % Immature Granulocytes # 1.490 H Neutrophils # Lymphocytes # Monocytes # Eosinophils # Basophils # Nucleated Red Blood Cells # Sodium Level 137 Potassium Level 4.5 Chloride Level 95 L Carbon Dioxide Level 35 H Anion Gap 7 Blood Urea Nitrogen 27 H Creatinine 0.50 L Est Glomerular Filtrat > 60 Rate mL/min Glucose Level 134 Calcium Level 6.6 L Ionized Calcium 0.9 L (Measured) Phosphorus Level 3.8 Magnesium Level 1.9 Total Bilirubin 0.0 L Direct Bilirubin 0.00 Indirect Bilirubin 0.0 Aspartate Amino 33 Transf (AST/SGOT) Alanine 19 Aminotransferase (ALT/SG PT) Alkaline Phosphatase 210 H Total Protein 6.4 Albumin 3.3 Globulin 3.10 Albumin/Globulin Ratio 1.06 Medications Medication Current Medications Acetaminophen (Tylenol Liquid) 650 mg Q4H PRN GTB MILD PAIN(1-3)OR ELEVATED TEMP Last administered on 10/16/18at 07:52; Admin Dose 650 MG; Start 10/09/18 at 14:00 Al Hydrox/Mg Hydrox/Simethicone (Mag-Al Plus) 15 ml Q6H PRN PO GASTROINTESTINAL UPSET Last administered on 10/17/18at 13:18; Admin Dose 15 ML; Start 10/09/18 at 14:00 Eye Lubricant (Artificial Tears Oph) 1 drop Q6H PRN BOTH EYES DRY EYES; Start 10/09/18 at 14:00 Bisacodyl (Dulcolax Supp) 10 mg DAILY PRN [place] CONSTIPATION; Start 10/09/18 at 14:00 Clonidine (Catapres) 0.1 mg DAILY PRN GTB ELEVATED BLOOD PRESSURE; Start 10/09/18 at 14:00 Diltiazem HCl (Cardizem Iv) 5 mg Q4 PRN IV ELEVATED HEART RATE Last administered on 10/18/18 01:09; Admin Dose 5 MG; Start 10/09/18 at 14:00 Diphenhydramine HCl (Benadryl Liquid Cup) 25 mg Q6 PRN GTB ITCHING Last administered on 10/17/18 23:27; Admin Dose 25 MG; Start 10/09/18 at 14:00 Duloxetine HCl (Cymbalta) 30 mg DAILY PO Last administered on 10/17/18 09:08; Admin Dose 30 MG; Start 10/10/18 at 09:00 Epoetin Arpan (Epogen (Esrd)) 10,000 units TuSa@1300 SC Last administered on 10/15/18 13:20; Admin Dose 10,000 UNITS; Start 10/11/18 at 13:00 Gabapentin (Neurontin Liquid) 400 mg Q8 GTB Last administered on 10/18/18 05:18; Admin Dose 400 MG; Start 10/09/18 at 15:30 Hydralazine HCl (Apresoline) 10 mg Q4H PRN IV ELEVATED BLOOD PRESSURE; Start 10/09/18 at 14:00 Hydromorphone HCl (Dilaudid) 4 mg Q4H PRN PO MODERATE PAIN LEVEL 7-10 Last administered on 10/18/18 05:18; Admin Dose 4 MG; Start 10/09/18 at 14:00 Hydroxychloroquine Sulfate (Plaquenil) 200 mg BID PO Last administered on 10/17/18 21:41; Admin Dose 200 MG; Start 10/09/18 at 21:00 Diagnostic Test (Pha) (Accu-Chek) 1 ea 02 XX Last administered on 10/18/18 02:19; Admin Dose 1 EA; Start 10/10/18 at 02:00 Insulin Aspart (Novolog Insulin Pen) NOVOLOG *CUSTOM* ALGORITHM Q6H SC Last administered on 10/17/18 20:01; Admin Dose 1 UNIT; Start 10/09/18 at 14:00 Lactobacillus Acidophilus (Florajen3 Capsule) 1 each BID GTB Last administered on 10/17/18 22:38; Admin Dose 1 EACH; Start 10/09/18 at 21:00 Lansoprazole (Prevacid) 30 mg BID@06,18 GTB Last administered on 10/18/18 05:17; Admin Dose 30 MG; Start 10/09/18 at 18:00 Levetiracetam (Keppra Liquid) 500 mg BID GTB Last administered on 10/17/18 21:40; Admin Dose 500 MG; Start 10/09/18 at 21:00 Magnesium Oxide (Mag-Ox 400) 400 mg BID GTB Last administered on 10/17/18 21:41; Admin Dose 400 MG; Start 10/09/18 at 21:00 Metoclopramide HCl (Reglan) 10 mg TID IV Last administered on 10/17/18 21:40; Admin Dose 10 MG; Start 10/09/18 at 21:00 Miconazole Nitrate (Miconazole 2% Cr) 1 applic BID TOP Last administered on 10/17/18 21:42; Admin Dose 1 APPLIC; Start 10/09/18 at 21:00 Miconazole Nitrate (Miconazole 2% Cr) 1 applic Q12 PRN TOP rash; Start 10/09/18 at 14:00 Ondansetron HCl (Zofran Inj) 4 mg Q4H PRN IV NAUSEA AND/OR VOMITING Last administered on 10/16/18 21:31; Admin Dose 4 MG; Start 10/09/18 at 14:00 Polyethylene Glycol (Miralax) 17 gm DAILY PRN GTB CONSTIPATION; Start 10/09/18 at 14:00 Senna (Senokot) 2 tab Q8 PRN PO CONSTIPATION; Start 10/09/18 at 14:00 Trimethoprim/ Sulfamethoxazole (Bactrim Susp) 40 ml DAILY GTB Last administered on 10/17/18 09:10; Admin Dose 40 ML; Start 10/10/18 at 09:00 Zolpidem Tartrate (Ambien) 5 mg HS PRN PO INSOMNIA Last administered on 10/17/18 03:39; Admin Dose 5 MG; Start 10/09/18 at 14:00 Miscellaneous Information 1 ea NOTE XX ; Start 10/09/18 at 15:00 Glucose (Glutose) 15 gm Q15M PRN PO DECREASED GLUCOSE; Start 10/09/18 at 15:00 Glucose (Glutose) 22.5 gm Q15M PRN PO DECREASED GLUCOSE; Start 10/09/18 at 15:00 Dextrose (D50w Syringe) 25 ml Q15M PRN IV DECREASED GLUCOSE; Start 10/09/18 at 15:00 Dextrose (D50w Syringe) 50 ml Q15M PRN IV DECREASED GLUCOSE; Start 10/09/18 at 15:00 Glucagon (Glucagen) 1 mg Q15M PRN IM DECREASED GLUCOSE; Start 10/09/18 at 15:00 Glucose (Glutose) 15 gm Q15M PRN BUCCAL DECREASED GLUCOSE; Start 10/09/18 at 15:00 Sodium Chloride 500 ml @ 500 mls/hr Q1H PRN IV BLOOD PRESSURE SUPPORT Last administered on 10/10/18at 07:59; Admin Dose 500 MLS/HR; Start 10/09/18 at 19:30 Albuterol (Ventolin Hfa) 4 puff Q6H RESP THERAPY INH Last administered on 10/18/18 01:17; Admin Dose 4 PUFF; Start 10/10/18 at 02:00 Ipratropium [place] (Atrovent Hfa) 4 puff Q6H RESP THERAPY INH Last administered on 10/18/18 01:17; Admin Dose 4 PUFF; Start 10/10/18 at 02:00 Methylprednisolone Sodium Succinate (Solu-Medrol) 40 mg Q8 IV Last administered on 10/18/18 05:17; Admin Dose 40 MG; Start 10/14/18 at 14:00 Quetiapine Fumarate (Seroquel) 50 mg BID GTB Last administered on 10/17/18at 21:43; Admin Dose 50 MG; Start 10/14/18 at 13:30 Lorazepam (Ativan) 1 mg Q4H PRN GTB AGITATION/ANXIETY Last administered on 10/18/18 05:18; Admin Dose 1 MG; Start 10/14/18 at 13:00 Lisinopril (Zestril) 2.5 mg DAILY PO Last administered on 10/17/18 09:10; Admin Dose 2.5 MG; Start 10/15/18 at 09:00 Hydromorphone HCl (Dilaudid) 2 mg Q4H PRN PO PAIN LEVEL 4-6; Start 10/14/18 at 17:30 Linagliptin (Tradjenta) 5 mg DAILY PO Last administered on 10/17/18 09:08; Admin Dose 5 MG; Start 10/16/18 at 10:30 Carvedilol (Coreg) 6.25 mg BID PO Last administered on 10/17/18 21:41; Admin Dose 6.25 MG; Start 10/17/18 at 21:00 Calcium Carbonate (Ca Carbonate) 1,250 mg TID GTB Last administered on 10/17/18 21:40; Admin Dose 1,250 MG; Start 10/17/18 at 14:00 Fentanyl (Duragesic 50 Mcg/Hr Patch) 1 patch Q72H TRANSDERM Last administered on 10/17/18 20:56; Admin Dose 1 PATCH; Start 10/17/18 at 20:30 Calcitriol (Rocaltrol) 0.25 mcg DAILY PO ; Start 10/18/18 at 09:00; Status PILAR MCDANIEL Oct 18, 2018 08:07
--- NOTE | 2018-10-18 08:20 | PN ---
DATE: 10/18/2018 SUBJECTIVE: The patient remains stable. No events overnight. The patient remains on FIO2 70% on pre ssure control. No other events noted. OBJECTIVE: VITAL SIGNS: Blood pressure is 138/96, pulse 130, respirations 32, temperature 98.6. HEENT: Head is normocephalic. NECK: Supple. HEART: Regular rate. LUNGS: Show diminished breath sounds at the base. ABDOMEN: Soft, nontender to palpation without rebound or guarding. EXTREMITIES: Negative for clubbing, cyanosis, no edema. DERMATOLOGIC: No rashes. MUSCULOSKELETAL: No joint effusion. NEUROLOGIC: No change in exam. MEDICATIONS: Reviewed. LABORATORY DATA: White count 31.8, hemoglobin 10.4, platelet count 591. Sodium 137, potassium 4.5, chloride 95, BUN 27, creatinine 0.54. The patient's ionized calcium 0.9. IMAGING STUDIES: Were reviewed, shows nodular interstitial infiltrates. ASSESSMENT AND PLAN: 1. Nonoliguric acute kidney injury on top of chronic kidney disease. Etiology is secondary to hemod ynamics. The patient is status post Bumex drip. Continue to monitor renal function closely. Contin ue intermittent diuretic therapy as needed. 2. Hyponatremia, improved. Continue free water flushes. 3. Anemia. Continue to monitor hemoglobin and hematocrit levels. 4. Mineral bone disorder. The patient is hypocalcemic. Will start the patient on vitamin D analogs . Continue calcium carbonate. 5. Respiratory failure. Vent settings and ABG was reviewed. Continue to monitor. 6. Dysphagia, status post G-tube feeding. 7. Quadriplegia. Continue to monitor. 8. Sepsis secondary to pneumonia. Patient is completing antibiotic course. 9. Tachyarrhythmia. Continue current treatment plan. 10. Chronic pain syndrome. Continue current pain regimen. 11. Seizure disorder. Continue medical management. 12. Rheumatoid arthritis. 13. History of adrenal insufficiency. Continue Cortef. Dictated By: UNA HONG/EFREN Conf#: [id number] DID#: [id number] CC: NOLA VIDAL MD;*EndCC*
[2018-10-18] MEDS: CA CARBONATE (250 MG/ML) 5ML CUP GTB SCH ×3 (08:25→21:21)
[2018-10-18] MEDS: LEVETIRACETAM (100 MG/ML) 5ML CUP GTB SCH ×2 (08:26→21:20)
[2018-10-18] MEDS: TRIMETHOPRIM/SULFAMETHOX (PO SYG) GTB SCH (08:26)
[2018-10-18] MEDS: LINAGLIPTIN 5 MG TABLET PO SCH (08:27)
[2018-10-18] MEDS: QUETIAPINE 25 MG TAB GTB SCH ×2 (08:27→21:20)
[2018-10-18] MEDS: HYDROXYCHLOROQUINE 200 MG TAB PO SCH ×2 (08:27→21:20)
[2018-10-18] MEDS: MAGNESIUM OXIDE 400 MG TAB GTB SCH ×2 (08:27→21:21)
[2018-10-18] MEDS: DULOXETINE 30 MG CAP DR PO SCH (08:28)
[2018-10-18] MEDS: L ACIDOPHIL/B LACTIS/B LONGUM CAPSULE GTB SCH ×2 (08:28→21:58)
[2018-10-18] MEDS: LISINOPRIL 5 MG TAB PO SCH (08:28)
[2018-10-18] MEDS: METOCLOPRAMIDE 10 MG INJ IV SCH ×3 (08:28→21:21)
[2018-10-18] MEDS: MICONAZOLE 2% 30 GM CR TOP SCH ×2 (08:29→21:57)
[2018-10-18] MEDS: BALSAM PERU/CASTOR OIL 60 GM TUBE TOP SCH ×2 (08:29→21:57)
--- NOTE | 2018-10-18 08:51 | CONS ---
Consult Date/Type/Reason Admit Date/Time Oct 09, 2018 at 12:16 Initial Consult Date 10/09/18 Type of Consultation: Pulm/CC Requesting Provider: NOLA VIDAL MD Date/Time of Note DATE: 10/18/18 TIME: 08:47 Subjective NO acute events - pt stable - very anxious, tachy - sinus tach - consider changing to IV anti-anxiety - defer to primary team - BP stable. ROS: No fever, no chills, no nausea, no vomiting, no diarrhea/constipation No recent weight changes No chest pain, no PND, no orthopnea - chronic SOB, very anxious No dizziness, blurred vision No thirst, no heat or cold intolerance Objective Vitals Vital Signs Date Temp Pulse Resp B/P (MAP) Pulse Ox O2 O2 Flow FiO2 Time Delivery Rate 10/18/18 129 33 94 70 08:08 10/18/18 138/96 Mechanical 07:00 (110) Ventilator 10/18/18 99.6 04:00 Intake and Output 10/17/18 10/17/18 10/18/18 1515:00 23:00 07:00 IntakeIntake Total 1080 ml 960 ml 640 ml OutputOutput Total 40 ml 705 ml 730 ml BalanceBalance 1040 ml 255 ml -90 ml Exam General: WN/WD/NAD, AOx 2-3 HEENT: Unicetric/atraumatic/EOMI (follows commands) NECK: trach Lymph: no lymphadenopathy HEART: regular with no S3, II/ systolic murmur at apex LUNGS: Coarse sounds ABD: soft, NT, ND, +BS : Intact Neuro: non focal SKIN: chronic changes EXT: trace edema, wounds Results/Medications Result Diagram: 10/18/18 0442 10/18/18 0442 Results 24 hrs Laboratory Tests Test 10/17/18 13:20 10/17/18 19:54 10/18/18 02:18 10/18/18 04:42 Bedside Glucose 143 152 136 White Blood Count 31.8 H Red Blood Count 3.58 L Hemoglobin 10.4 L Hematocrit 32.8 L Mean Corpuscular Volume 91.6 Mean Corpuscular 29.1 Hemoglobin Mean Corpuscular 31.7 L Hemoglobin Concent Red Cell Distribution 18.0 H Width Platelet Count 591 H Mean Platelet Volume 10.9 H Immature Granulocytes % 4.700 H Neutrophils % Lymphocytes % Monocytes % Eosinophils % Basophils % Nucleated Red Blood 0.5 H Cells % Immature Granulocytes # 1.490 H Neutrophils # Lymphocytes # Monocytes # Eosinophils # Basophils # Nucleated Red Blood Cells # Sodium Level 137 Potassium Level 4.5 Chloride Level 95 L Carbon Dioxide Level 35 H Anion Gap 7 Blood Urea Nitrogen 27 H Creatinine 0.50 L Est Glomerular Filtrat > 60 Rate mL/min Glucose Level 134 Calcium Level 6.6 L Ionized Calcium 0.9 L (Measured) Phosphorus Level 3.8 Magnesium Level 1.9 Total Bilirubin 0.0 L Direct Bilirubin 0.00 Indirect Bilirubin 0.0 Aspartate Amino 33 Transf (AST/SGOT) Alanine 19 Aminotransferase (ALT/SG PT) Alkaline Phosphatase 210 H Total Protein 6.4 Albumin 3.3 Globulin 3.10 Albumin/Globulin Ratio 1.06 Medications Current Medications Acetaminophen (Tylenol Liquid) 650 mg Q4H PRN GTB MILD PAIN(1-3)OR ELEVATED TEMP Last administered on 10/16/18at 07:52; Admin Dose 650 MG; Start 10/09/18 at 14:00 Al Hydrox/Mg Hydrox/Simethicone (Mag-Al Plus) 15 ml Q6H PRN PO GASTROINTESTINAL UPSET Last administered on 10/17/18at 13:18; Admin Dose 15 ML; Start 10/09/18 at 14:00 Eye Lubricant (Artificial Tears Oph) 1 drop Q6H PRN BOTH EYES DRY EYES; Start 10/09/18 at 14:00 Bisacodyl (Dulcolax Supp) 10 mg DAILY PRN [place] CONSTIPATION; Start 10/09/18 at 14 :00 Clonidine (Catapres) 0.1 mg DAILY PRN GTB ELEVATED BLOOD PRESSURE; Start 10/09/18 at 14:00 Diltiazem HCl (Cardizem Iv) 5 mg Q4 PRN IV ELEVATED HEART RATE Last administered on 10/18/18at 01:09; Admin Dose 5 MG; Start 10/09/18 at 14:00 Diphenhydramine HCl (Benadryl Liquid Cup) 25 mg Q6 PRN GTB ITCHING Last administered on 10/17/18at 23:27; Admin Dose 25 MG; Start 10/09/18 at 14:00 Duloxetine HCl (Cymbalta) 30 mg DAILY PO Last administered on 10/18/18at 08:28; Admin Dose 30 MG; Start 10/10/18 at 09:00 Epoetin Arpan (Epogen (Esrd)) 10,000 units TuSa@1300 SC Last administered on 10/15/18 13:20; Admin Dose 10,000 UNITS; Start 10/11/18 at 13:00 Gabapentin (Neurontin Liquid) 400 mg Q8 GTB Last administered on 10/18/18 05:18; Admin Dose 400 MG; Start 10/09/18 at 15:30 Hydralazine HCl (Apresoline) 10 mg Q4H PRN IV ELEVATED BLOOD PRESSURE; Start 10/09/18 at 14:00 Hydromorphone HCl (Dilaudid) 4 mg Q4H PRN PO MODERATE PAIN LEVEL 7-10 Last administered on 10/18/18 05:18; Admin Dose 4 MG; Start 10/09/18 at 14:00 Hydroxychloroquine Sulfate (Plaquenil) 200 mg BID PO Last administered on 10/18/18 08:27; Admin Dose 200 MG; Start 10/09/18 at 21:00 Diagnostic Test (Pha) (Accu-Chek) 1 ea 02 XX Last administered on 10/18/18 02:19; Admin Dose 1 EA; Start 10/10/18 at 02:00 Insulin Aspart (Novolog Insulin Pen) NOVOLOG *CUSTOM* ALGORITHM Q6H SC Last administered on 10/17/18 20:01; Admin Dose 1 UNIT; Start 10/09/18 at 14:00 Lactobacillus Acidophilus (Florajen3 Capsule) 1 each BID GTB Last administered on 10/18/18 08:28; Admin Dose 1 EACH; Start 10/09/18 at 21:00 Lansoprazole (Prevacid) 30 mg BID@06,18 GTB Last administered on 10/18/18 05:17; Admin Dose 30 MG; Start 10/09/18 at 18:00 Levetiracetam (Keppra Liquid) 500 mg BID GTB Last administered on 10/18/18 08:26; Admin Dose 500 MG; Start 10/09/18 at 21:00 Magnesium Oxide (Mag-Ox 400) 400 mg BID GTB Last administered on 10/18/18 08:27 ; Admin Dose 400 MG; Start 10/09/18 at 21:00 Metoclopramide HCl (Reglan) 10 mg TID IV Last administered on 10/18/18at 08:28; Admin Dose 10 MG; Start 10/09/18 at 21:00 Miconazole Nitrate (Miconazole 2% Cr) 1 applic BID TOP Last administered on 10/18/18at 08:29; Admin Dose 1 APPLIC; Start 10/09/18 at 21:00 Miconazole Nitrate (Miconazole 2% Cr) 1 applic Q12 PRN TOP rash; Start 10/09/18 at 14:00 Ondansetron HCl (Zofran Inj) 4 mg Q4H PRN IV NAUSEA AND/OR VOMITING Last administered on 10/16/18at 21:31; Admin Dose 4 MG; Start 10/09/18 at 14:00 Polyethylene Glycol (Miralax) 17 gm DAILY PRN GTB CONSTIPATION; Start 10/09/18 at 14:00 Senna (Senokot) 2 tab Q8 PRN PO CONSTIPATION; Start 10/09/18 at 14:00 Trimethoprim/ Sulfamethoxazole (Bactrim Susp) 40 ml DAILY GTB Last administered on 10/18/18at 08:26; Admin Dose 40 ML; Start 10/10/18 at 09:00 Zolpidem Tartrate (Ambien) 5 mg HS PRN PO INSOMNIA Last administered on 10/17/18at 03:39; Admin Dose 5 MG; Start 10/09/18 at 14:00 Miscellaneous Information 1 ea NOTE XX ; Start 10/09/18 at 15:00 Glucose (Glutose) 15 gm Q15M PRN PO DECREASED GLUCOSE; Start 10/09/18 at 15:00 Glucose (Glutose) 22.5 gm Q15M PRN PO DECREASED GLUCOSE; Start 10/09/18 at 15:00 Dextrose (D50w Syringe) 25 ml Q15M PRN IV DECREASED GLUCOSE; Start 10/09/18 at 15:00 Dextrose (D50w Syringe) 50 ml Q15M PRN IV DECREASED GLUCOSE; Start 10/09/18 at 15:00 Glucagon (Glucagen) 1 mg Q15M PRN IM DECREASED GLUCOSE; Start 10/09/18 at 15:00 Glucose (Glutose) 15 gm Q15M PRN BUCCAL DECREASED GLUCOSE; Start 10/09/18 at 15:00 Sodium Chloride 500 ml @ 500 mls/hr Q1H PRN IV BLOOD PRESSURE SUPPORT Last administered on 10/10/18 07:59; Admin Dose 500 MLS/HR; Start 10/09/18 at 19:30 Albuterol (Ventolin Hfa) 4 puff Q6H RESP THERAPY INH Last administered on 10/18/18 01:17; Admin Dose 4 PUFF; Start 10/10/18 at 02:00 Ipratropium [place] (Atrovent Hfa) 4 puff Q6H RESP THERAPY INH Last ad ministered on 10/18/18 01:17; Admin Dose 4 PUFF; Start 10/10/18 at 02:00 Methylprednisolone Sodium Succinate (Solu-Medrol) 40 mg Q8 IV Last administered on 10/18/18 05:17; Admin Dose 40 MG; Start 10/14/18 at 14:00 Quetiapine Fumarate (Seroquel) 50 mg BID GTB Last administered on 10/18/18 08:27; Admin Dose 50 MG; Start 10/14/18 at 13:30 Lorazepam (Ativan) 1 mg Q4H PRN GTB AGITATION/ANXIETY Last administered on 10/18/18 05:18; Admin Dose 1 MG; Start 10/14/18 at 13:00 Lisinopril (Zestril) 2.5 mg DAILY PO Last administered on 10/18/18 08:28; Admin Dose 2.5 MG; Start 10/15/18 at 09:00 Hydromorphone HCl (Dilaudid) 2 mg Q4H PRN PO PAIN LEVEL 4-6; Start 10/14/18 at 17:30 Linagliptin (Tradjenta) 5 mg DAILY PO Last administered on 10/18/18 08:27; Admin Dose 5 MG; Start 10/16/18 at 10:30 Carvedilol (Coreg) 6.25 mg BID PO Last administered on 10/18/18 08:27; Admin Dose 6.25 MG; Start 10/17/18 at 21:00 Calcium Carbonate (Ca Carbonate) 1,250 mg TID GTB Last administered on 10/18/18 08:25; Admin Dose 1,250 MG; Start 10/17/18 at 14:00 Fentanyl (Duragesic 50 Mcg/Hr Patch) 1 patch Q72H TRANSDERM Last administered on 3/4/19at 20:56; Admin Dose 1 PATCH; Start 10/17/18 at 20:30 Calcitriol (Rocaltrol) 0.25 mcg DAILY PO ; Start 10/18/18 at 09:00 Assessment/Plan Hospital Course (Demo Recall) 1. Tachycardia at this time in the setting of fevers and respiratory distress, most consistent with sinus tachycardia likely driving this process - better now, con't supportive Rx and pain management- con't anxiety Rx. 2. Hypertension with borderline hypotension at this time. -still borderline Hotn - no focal symptoms. Will monitor now. In good range. STABLE. 3. Abnormal electrocardiogram at baseline. 4. Chronic respiratory failure, status post tracheostomy.-weaning vent support - con't resp Rx. Con;t resp Rx. 5. Dysphagia, status post G-tube. 6. Quadriplegia- skin care in palce. NO change. 7. Renal insufficiency, on steroids- Cr 0.97 now. Stable. Good urine output now. 8. Chronic obstructive pulmonary disease - con't resp Rx per pulmonary team. 9. Rheumatoid arthritis. 10. Chronic kidney disease. 11. Diabetes mellitus- on meds. VANESSA COOPER MD Oct 18, 2018 08:51
[2018-10-18] MEDS: CALCITRIOL 0.25 MCG CAP PO SCH (09:00)
--- NOTE | 2018-10-18 13:18 | CONS ---
Assessment/Plan Assessment/Plan Problems: (1) Hypercalcemia Status: Resolved Comment: He has actually gotten a little bit hypocalcemic with the immobilization. He is receiving enteral calcium supplementation, and will be placed back on low-dose calcitriol. 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 Status: Chronic Comment: He is on stress dose steroids at the present time (4) Diabetes mellitus type 2 in nonobese Status: Chronic Comment: Adequate control (5) Acquired hypothyroidism Status: Chronic Comment: Sejal on replacement therapy Consultation Date/Type/Reason Admit Date/Time Oct 09, 2018 at 12:16 Initial Consult Date 10/12/18 Type of Consult Endocrinology Reason for Consultation Diabetes mellitus type 2; adrenal insufficiency; hypercalcemia Requesting Provider: NOLA VIDAL MD Date/Time of Note DATE: 10/18/18 TIME: 13:16 24 HR Interval Summary Free Text/Dictation Patient remains responsive. Constitutional: no complaints Detailed Summary Endocrine: no complaints Exam/Review of Systems Exam Vitals Vital Signs Date Temp Pulse Resp B/P (MAP) Pulse Ox O2 O2 Flow FiO2 Time Delivery Rate 10/18/18 112 23 99 80 12:50 10/18/18 121/97 09:00 (105) 10/18/18 99.3 Mechanical 08:00 Ventilator Intake and Output 10/17/18 10/17/18 10/18/18 1515:00 23:00 07:00 IntakeIntake Total 1080 ml 960 ml 640 ml OutputOutput Total 40 ml 705 ml 730 ml BalanceBalance 1040 ml 255 ml -90 ml Constitutional: alert, oriented Respiratory: clear to auscultation, normal air movement Cardiovascular: regular rate and rhythm, nl pulses Results Result Diagram: 10/18/18 0442 10/18/18 0442 Results 24hrs Laboratory Tests Test 10/17/18 13:20 10/17/18 19:54 10/18/18 02:18 10/18/18 04:42 Bedside Glucose 143 152 136 White Blood Count 31.8 H Red Blood Count 3.58 L Hemoglobin 10.4 L Hematocrit 32.8 L Mean Corpuscular Volume 91.6 Mean Corpuscular 29.1 Hemoglobin Mean Corpuscular 31.7 L Hemoglobin Concent Red Cell Distribution 18.0 H Width Platelet Count 591 H Mean Platelet Volume 10.9 H Immature Granulocytes % 4.700 H Neutrophils % Segmented Neutrophils 73 % (Manual) Band Neutrophils % 6 H (Manual) Lymphocytes % Lymphocytes % (Manual) 9 L Reactive Lymphocytes 1 H % (Manual) Monocytes % Monocytes % (Manual) 10 Eosinophils % Basophils % Promyelocytes % (Manual) 1 H Nucleated Red Blood 1 H Cells % Immature Granulocytes # 1.490 H Neutrophils # Neutrophils # (Manual) 23.8 H Band Neutrophils # 1.9 H Lymphocytes (Manual) 2.8 Lymphocytes # Reactive Lymphocytes # 0.3 H Monocytes # Monocytes # (Manual) 3.1 H Eosinophils # Basophils # Promyelocytes # 0.3 H Nucleated Red Blood Cells # Platelet Estimate INCREASED Giant Platelets 2 H Polychromasia 2+ Anisocytosis 1+ Macrocytosis 1+ Sodium Level 137 Potassium Level 4.5 Chloride Level 95 L Carbon Dioxide Level 35 H Anion Gap 7 Blood Urea Nitrogen 27 H Creatinine 0.50 L Est Glomerular Filtrat > 60 Rate mL/min Glucose Level 134 Calcium Level 6.6 L Ionized Calcium 0.9 L (Measured) Phosphorus Level 3.8 Magnesium Level 1.9 Total Bilirubin 0.0 L Direct Bilirubin 0.00 Indirect Bilirubin 0.0 Aspartate Amino 33 Transf (AST/SGOT) Alanine 19 Aminotransferase (ALT/SG PT) Alkaline Phosphatase 210 H Total Protein 6.4 Albumin 3.3 Globulin 3.10 Albumin/Globulin Ratio 1.06 Test 10/18/18 08:35 Bedside Glucose 158 Medications Medication Current Medications Acetaminophen (Tylenol Liquid) 650 mg Q4H PRN GTB MILD PAIN(1-3)OR ELEVATED TEMP Last administered on 10/16/18at 07:52; Admin Dose 650 MG; Start 10/09/18 at 14:00 Al Hydrox/Mg Hydrox/Simethicone (Mag-Al Plus) 15 ml Q6H PRN PO GASTROINTESTINAL UPSET Last administered on 10/17/18at 13:18; Admin Dose 15 ML; Start 10/09/18 at 14:00 Eye Lubricant (Artificial Tears Oph) 1 drop Q6H PRN BOTH EYES DRY EYES; Start 10/09/18 at 14:00 Bisacodyl (Dulcolax Supp) 10 mg DAILY PRN [place] CONSTIPATION; Start 10/09/18 at 14:00 Clonidine (Catapres) 0.1 mg DAILY PRN GTB ELEVATED BLOOD PRESSURE; Start 10/09 at 14:00 Diltiazem HCl (Cardizem Iv) 5 mg Q4 PRN IV ELEVATED HEART RATE Last administered on 10/18/18 01:09; Admin Dose 5 MG; Start 10/09/18 at 14:00 Diphenhydramine HCl (Benadryl Liquid Cup) 25 mg Q6 PRN GTB ITCHING Last administered on 10/17/18 23:27; Admin Dose 25 MG; Start 10/09/18 at 14:00 Duloxetine HCl (Cymbalta) 30 mg DAILY PO Last administered on 10/18/18 08:28; Admin Dose 30 MG; Start 10/10/18 at 09:00 Epoetin Arpan (Epogen (Esrd)) 10,000 units TuSa@1300 SC Last administered on 10/15/18 13:20; Admin Dose 10,000 UNITS; Start 10/11/18 at 13:00 Gabapentin (Neurontin Liquid) 400 mg Q8 GTB Last administered on 10/18/18 05:18; Admin Dose 400 MG; Start 10/09/18 at 15:30 Hydralazine HCl (Apresoline) 10 mg Q4H PRN IV ELEVATED BLOOD PRESSURE; Start 10/09/18 at 14:00 Hydromorphone HCl (Dilaudid) 4 mg Q4H PRN PO MODERATE PAIN LEVEL 7-10 Last administered on 10/18/18 09:52; Admin Dose 4 MG; Start 10/09/18 at 14:00 Hydroxychloroquine Sulfate (Plaquenil) 200 mg BID PO Last administered on 10/18/18 08:27; Admin Dose 200 MG; Start 10/09/18 at 21:00 Diagnostic Test (Pha) (Accu-Chek) 1 ea 02 XX Last administered on 10/18/18 02:19; Admin Dose 1 EA; Start 10/10/18 at 02:00 Insulin Aspart (Novolog Insulin Pen) NOVOLOG *CUSTOM* ALGORITHM Q6H SC Last administered on 10/18/18 08:50; Admin Dose 1 UNIT; Start 10/09/18 at 14:00 Lactobacillus Acidophilus (Florajen3 Capsule) 1 each BID GTB Last administered on 10/18/18 08:28; Admin Dose 1 EACH; Start 10/09/18 at 21:00 Lansoprazole (Prevacid) 30 mg BID@,18 GTB Last administered on 10/18/18 05:17; Admin Dose 30 MG; Start 10/09/18 at 18:00 Levetiracetam (Keppra Liquid) 500 mg BID GTB Last administered on 10/18/18 08:26; Admin Dose 500 MG; Start 10/09/18 at 21:00 Magnesium Oxide (Mag-Ox 400) 400 mg BID GTB Last administered on 10/18/18 08:27; Admin Dose 400 MG; Start 10/09/18 at 21:00 Metoclopramide HCl (Reglan) 10 mg TID IV Last administered on 10/18/18 12:16; Admin Dose 10 MG; Start 10/09/18 at 21:00 Miconazole Nitrate (Miconazole 2% Cr) 1 applic BID TOP Last administered on 10/18/18 08:29; Admin Dose 1 APPLIC; Start 10/09/18 at 21:00 Miconazole Nitrate (Miconazole 2% Cr) 1 applic Q12 PRN TOP rash; Start 10/09/18 at 14:00 Ondansetron HCl (Zofran Inj) 4 mg Q4H PRN IV NAUSEA AND/OR VOMITING Last administered on 10/16/18 21:31; Admin Dose 4 MG; Start 10/09/18 at 14:00 Polyethylene Glycol (Miralax) 17 gm DAILY PRN GTB CONSTIPATION; Start 10/09/18 at 14:00 Senna (Senokot) 2 tab Q8 PRN PO CONSTIPATION; Start 10/09/18 at 14:00 Trimethoprim/ Sulfamethoxazole (Bactrim Susp) 40 ml DAILY GTB Last administered on 10/18/18 08:26; Admin Dose 40 ML; Start 10/10/18 at 09:00 Zolpidem Tartrate (Ambien) 5 mg HS PRN PO INSOMNIA Last administered on 10/17/18 03:39; Admin Dose 5 MG; Start 10/09/18 at 14:00 Miscellaneous Information 1 ea NOTE XX ; Start 10/09/18 at 15:00 Glucose (Glutose) 15 gm Q15M PRN PO DECREASED GLUCOSE; Start 10/09/18 at 15:00 Glucose (Glutose) 22.5 gm Q15M PRN PO DECREASED GLUCOSE; Start 10/09/18 at 15:00 Dextrose (D50w Syringe) 25 ml Q15M PRN IV DECREASED GLUCOSE; Start 10/09/18 at 15:00 Dextrose (D50w Syringe) 50 ml Q15M PRN IV DECREASED GLUCOSE; Start 10/09/18 at 15:00 Glucagon (Glucagen) 1 mg Q15M PRN IM DECREASED GLUCOSE; Start 10/09/18 at 15:00 Glucose (Glutose) 15 gm Q15M PRN BUCCAL DECREASED GLUCOSE; Start 10/09/18 at 15:00 Sodium Chloride 500 ml @ 500 mls/hr Q1H PRN IV BLOOD PRESSURE SUPPORT Last administered on 10/10/18at 07:59; Admin Dose 500 MLS/HR; Start 10/09/18 at 19:30 Albuterol (Ventolin Hfa) 4 puff Q6H RESP THERAPY INH Last administered on 10/18/18 09:45; Admin Dose 4 PUFF; Start 10/10/18 at 02:00 Ipratropium [place] (Atrovent Hfa) 4 puff Q6H RESP THERAPY INH Last administered on 10/18/18 09:46; Admin Dose 4 PUFF; Start 10/10/18 at 02:00 Methylprednisolone Sodium Succinate (Solu-Medrol) 40 mg Q8 IV Last administered on 10/18/18 05:17; Admin Dose 40 MG; Start 10/14/18 at 14:00 Quetiapine Fumarate (Seroquel) 50 mg BID GTB Last administered on 10/18/18 08:27; Admin Dose 50 MG; Start 10/14/18 at 13:30 Lorazepam (Ativan) 1 mg Q4H PRN GTB AGITATION/ANXIETY Last administered on 10/18/18 05:18; Admin Dose 1 MG; Start 10/14/18 at 13:00 Lisinopril (Zestril) 2.5 mg DAILY PO Last administered on 10/18/18 08:28; Admin Dose 2.5 MG; Start 10/15/18 at 09:00 Hydromorphone HCl (Dilaudid) 2 mg Q4H PRN PO PAIN LEVEL 4-6; Start 10/14/18 at 17:30 Linagliptin (Tradjenta) 5 mg DAILY PO Last administered on 10/18/18at 08:27; Admin Dose 5 MG; Start 10/16/18 at 10:30 Carvedilol (Coreg) 6.25 mg BID PO Last administered on 10/18/18at 08:27; Admin Dose 6.25 MG; Start 10/17/18 at 21:00 Calcium Carbonate (Ca Carbonate) 1,250 mg TID GTB Last administered on 10/18/18at 12:16; Admin Dose 1,250 MG; Start 10/17/18 at 14:00 Fentanyl (Duragesic 50 Mcg/Hr Patch) 1 patch Q72H TRANSDERM Last administered on 10/17/18at 20:56; Admin Dose 1 PATCH; Start 10/17/18 at 20:30 Calcitriol (Rocaltrol) 0.25 mcg DAILY PO ; Start 10/18/18 at 09:00 Calcitriol (Calcitriol) 1 mcg ONCE ONCE IV ; Start 10/18/18 at 13:30; Stop 10/18/18 at 13:31; Status UNV Magnesium Sulfate 50 ml @ 25 mls/hr ONCE ONCE IVPB ; Start 10/18/18 at 13:30; Stop 10/18/18 at 15:29; Status UNV KEV ISSA MD Oct 18, 2018 13:18
[2018-10-18] MEDS ORDERED: MAGNESIUM SULFATE 2 GM/50 ML 50 ML IVPB ONE (13:30)
[2018-10-18] MEDS: EPOETIN 10000 UNITS/1 ML INJ (ESRD) SC SCH (13:32)
[2018-10-18] MEDS ORDERED: CALCITRIOL 1 MCG INJ IV SCH (14:30)
--- NOTE | 2018-10-18 14:35 | CONS ---
Assessment/Plan Assessment/Plan Hospital Course (Demo Recall) # sepsis, respiratory - recurrent sepsis on 10/08/2018 due to aspiration pneumonia, HCAP - possible aspiration pneumonia, recurrent pneumonia due to citrobacter - acute on chronic hypoxic and hypercarbic respiratory failure - persistent leukocytosis likely due to steroid margination - h/o tracheostomy on 08/26/2018 - h/o "Increased mild left apical pneumothorax" per CXR on 09/19/2018; no pneumot horax mentioned on subsequent CXR - h/o pneumomediastinum - h/o VAT on 08/11/2018 - h/o asthma/COPD exacerbation - h/o acute tracheobronchitis - h/o MAC infection but CT chest did not demonstrate features suggestive of this per chart review - h/o HCAP due to citrobacter, based on resp culture on 09/13/2018 - h/o aspergillus growing out of resp culture per (pulm note by Dr. Lopez) on 07/25/2018 - h/o elevated 1,3 Ugtz-H-oowlan level = 232 on 08/06/2018 - h/o MSSA septicemia # GI - diarrhea, C diff on 10/09/2018 was negative - h/o HSV esophagitis, took acyclovir x21 days from 08/26/2018 - h/o EGD, esophageal biopsy showed esophageal squamous mucosa showing acute inflammation, granulation tissue, and ulceration consistent with ulcerative esophagitis, rare multinucleated cells with morphology suggestive of vial cytopathic changes, No cardiac mucosa, intestinal metaplasia, dysplasia, or malignancy defined - GERD - PUD # renal/ - Hypokalemia, recurrent - CKD 2 - BPH # cardiac - tachycardia, persistent - ACD - HTN - HLD # endo - T2DM - Hgb A1c 7.2% - secondary adrenal insufficiency; steroid dependent - Hypoparathyroidism - Hypercalcemia - Pamidronate was ordered # neuro - toxic metabolic encephalopathy - Cervical myopathy - Severe cervical spinal cord stenosis with cord compression from C3-C5, s/p laminectomy in ~03/2018 - Chronic pain syndrome - Functional quadriplegia - Seizure d/o # other chronic conditions - RA with chronic steroid dependence - Immunocompromised status - Fibromyalgia rheumatica - DDD - H/o multiple rib fracture - Pt completed: meropenem (09/25/2018-10/02/2018), vancomycin (09/25/18-09/28/18), pip/tazo (10/09/2018-10/15/2018) recommendations - ordered: pneumocystis DFA - chest CT when Pt's stable for CT - continue Bactrim for pneumocystis PPX - continue to monitor off other systemic antibiotic the critical care time I took to care for this Pt today was 1300 to 1400 Consultation Date/Type/Reason Admit Date/Time Oct 09, 2018 at 12:16 Initial Consult Date 10/09/18 Type of Consult ID Requesting Provider: NOLA VIDAL MD Date/Time of Note DATE: 10/18/18 TIME: 14:32 24 HR Interval Summary Subjective hx not possible: pt non-verbal, pt critical, pt critical status Exam/Review of Systems Exam Vitals Vital Signs Date Temp Pulse Resp B/P (MAP) Pulse Ox O2 O2 Flow FiO2 Time Delivery Rate 10/18/18 113 22 122/86 99 13:00 (98) 10/18/18 80 12:50 10/18/18 97.5 Mechanical 12:00 Ventilator Intake and Output 10/17/18 10/17/18 10/18/18 1515:00 23:00 07:00 IntakeIntake Total 1080 ml 960 ml 640 ml OutputOutput Total 40 ml 705 ml 730 ml BalanceBalance 1040 ml 255 ml -90 ml Constitutional: non-verbal, frail Psych: confusion Head: normocephalic, atraumatic Eyes: nl conjunctiva, nl lids, nl sclera ENMT: nl external ears & nose, nl nasal mucosa & septum Neck: other (trach) Respiratory: clear to auscultation, normal air movement Cardiovascular: regular rate and rhythm, nl pulses Gastrointestinal: soft, non-tender Musculoskeletal: nl extremities to inspection Extremities: No edema Neurological: lethargic Skin: rash or lesions (coccygeal ulcer) Results Result Diagram: 10/18/18 0442 10/18/182 Results 24hrs Laboratory Tests Test 10/17/18 19:54 10/18/18 02:18 10/18/18 04:42 10/18/18 08:35 Bedside Glucose 152 136 158 White Blood Count 31.8 H Red Blood Count 3.58 L Hemoglobin 10.4 L Hematocrit 32.8 L Mean Corpuscular Volume 91.6 Mean Corpuscular 29.1 Hemoglobin Mean Corpuscular 31.7 L Hemoglobin Concent Red Cell Distribution 18.0 H Width Platelet Count 591 H Mean Platelet Volume 10.9 H Immature Granulocytes % 4.700 H Neutrophils % Segmented Neutrophils 73 % (Manual) Band Neutrophils % 6 H (Manual) Lymphocytes % Lymphocytes % (Manual) 9 L Reactive Lymphocytes 1 H % (Manual) Monocytes % Monocytes % (Manual) 10 Eosinophils % Basophils % Promyelocytes % (Manual) 1 H Nucleated Red Blood 1 H Cells % Immature Granulocytes # 1.490 H Neutrophils # Neutrophils # (Manual) 23.8 H Band Neutrophils # 1.9 H Lymphocytes (Manual) 2.8 Lymphocytes # Reactive Lymphocytes # 0.3 H Monocytes # Monocytes # (Manual) 3.1 H Eosinophils # Basophils # Promyelocytes # 0.3 H Nucleated Red Blood Cells # Platelet Estimate INCREASED Giant Platelets 2 H Polychromasia 2+ Anisocytosis 1+ Macrocytosis 1+ Sodium Level 137 Potassium Level 4.5 Chloride Level 95 L Carbon Dioxide Level 35 H Anion Gap 7 Blood Urea Nitrogen 27 H Creatinine 0.50 L Est Glomerular Filtrat > 60 Rate mL/min Glucose Level 134 Calcium Level 6.6 L Ionized Calcium 0.9 L (Measured) Phosphorus Level 3.8 Magnesium Level 1.9 Total Bilirubin 0.0 L Direct Bilirubin 0.00 Indirect Bilirubin 0.0 Aspartate Amino 33 Transf (AST/SGOT) Alanine 19 Aminotransferase (ALT/SG PT) Alkaline Phosphatase 210 H Total Protein 6.4 Albumin 3.3 Globulin 3.10 Albumin/Globulin Ratio 1.06 Test 10/18/18 13:44 Bedside Glucose 130 Medications Medication Current Medications Acetaminophen (Tylenol Liquid) 650 mg Q4H PRN GTB MILD PAIN(1-3)OR ELEVATED TEMP Last administered on 10/16/18at 07:52; Admin Dose 650 MG; Start 10/09/18 at 14:00 Al Hydrox/Mg Hydrox/Simethicone (Mag-Al Plus) 15 ml Q6H PRN PO GASTROINTESTINAL UPSET Last administered on 10/17/18 13:18; Admin Dose 15 ML; Start 10/09/18 at 14:00 Eye Lubricant (Artificial Tears Oph) 1 drop Q6H PRN BOTH EYES DRY EYES; Start 10/09/18 at 14:00 Bisacodyl (Dulcolax Supp) 10 mg DAILY PRN [place] CONSTIPATION; Start 10/09/18 at 14:00 Clonidine (Catapres) 0.1 mg DAILY PRN GTB ELEVATED BLOOD PRESSURE; Start 10/09/18 at 14:00 Diltiazem HCl (Cardizem Iv) 5 mg Q4 PRN IV ELEVATED HEART RATE Last administered on 10/18/18 01:09; Admin Dose 5 MG; Start 10/09/18 at 14:00 Diphenhydramine HCl (Benadryl Liquid Cup) 25 mg Q6 PRN GTB ITCHING Last adm inistered on 10/17/18 23:27; Admin Dose 25 MG; Start 10/09/18 at 14:00 Duloxetine HCl (Cymbalta) 30 mg DAILY PO Last administered on 10/18/18 08:28; Admin Dose 30 MG; Start 10/10/18 at 09:00 Epoetin Arpan (Epogen (Esrd)) 10,000 units TuSa@1300 SC Last administered on 10/18/18 13:32; Admin Dose 10,000 UNITS; Start 10/11/18 at 13:00 Gabapentin (Neurontin Liquid) 400 mg Q8 GTB Last administered on 10/18/18 13:30; Admin Dose 400 MG; Start 10/09/18 at 15:30 Hydralazine HCl (Apresoline) 10 mg Q4H PRN IV ELEVATED BLOOD PRESSURE; Start 10/09/18 at 14:00 Hydromorphone HCl (Dilaudid) 4 mg Q4H PRN PO MODERATE PAIN LEVEL 7-10 Last administered on 10/18/18 13:30; Admin Dose 4 MG; Start 10/09/18 at 14:00 Hydroxychloroquine Sulfate (Plaquenil) 200 mg BID PO Last administered on 10/18/18 08:27; Admin Dose 200 MG; Start 10/09/18 at 21:00 Diagnostic Test (Pha) (Accu-Chek) 1 ea 02 XX Last administered on 10/18/18 02:19; Admin Dose 1 EA; Start 10/10/18 at 02:00 Insulin Aspart (Novolog Insulin Pen) NOVOLOG *CUSTOM* ALGORITHM Q6H SC Last administered on 10/18/18 08:50; Admin Dose 1 UNIT; Start 10/09/18 at 14:00 Lactobacillus Acidophilus (Florajen3 Capsule) 1 each BID GTB Last administered on 10/18/18 08:28; Admin Dose 1 EACH; Start 10/09/18 at 21:00 Lansoprazole (Prevacid) 30 mg BID@,18 GTB Last administered on 10/18/18 05:17; Admin Dose 30 MG; Start 10/09/18 at 18:00 Levetiracetam (Keppra Liquid) 500 mg BID GTB Last administered on 10/18/18 08:26; Admin Dose 500 MG; Start 10/09/18 at 21:00 Magnesium Oxide (Mag-Ox 400) 400 mg BID GTB Last administered on 10/18/18 08:27; Admin Dose 400 MG; Start 10/09/18 at 21:00 Metoclopramide HCl (Reglan) 10 mg TID IV Last administered on 10/18/18 12:16; Admin Dose 10 MG; Start 10/09/18 at 21:00 Miconazole Nitrate (Miconazole 2% Cr) 1 applic BID TOP Last administered on 10/18/18 08:29; Admin Dose 1 APPLIC; Start 10/09/18 at 21:00 Miconazole Nitrate (Miconazole 2% Cr) 1 applic Q12 PRN TOP rash; Start 10/09/18 at 14:00 Ondansetron HCl (Zofran Inj) 4 mg Q4H PRN IV NAUSEA AND/OR VOMITING Last administered on 10/16/18 21:31; Admin Dose 4 MG; Start 10/09/18 at 14:00 Polyethylene Glycol (Miralax) 17 gm DAILY PRN GTB CONSTIPATION; Start 10/09/18 at 14:00 Senna (Senokot) 2 tab Q8 PRN PO CONSTIPATION; Start 10/09/18 at 14:00 Trimethoprim/ Sulfamethoxazole (Bactrim Susp) 40 ml DAILY GTB Last administered on 10/18/18 08:26; Admin Dose 40 ML; Start 10/10/18 at 09:00 Zolpidem Tartrate (Ambien) 5 mg HS PRN PO INSOMNIA Last administered on 10/17/18 03:39; Admin Dose 5 MG; Start 10/09/18 at 14:00 Miscellaneous Information 1 ea NOTE XX ; Start 10/09/18 at 15:00 Glucose (Glutose) 15 gm Q15M PRN PO DECREASED GLUCOSE; Start 10/09/18 at 15:00 Glucose (Glutose) 22.5 gm Q15M PRN PO DECREASED GLUCOSE; Start 10/09/18 at 15:00 Dextrose (D50w Syringe) 25 ml Q15M PRN IV DECREASED GLUCOSE; Start 10/09/18 at 15:00 Dextrose (D50w Syringe) 50 ml Q15M PRN IV DECREASED GLUCOSE; Start 10/09/18 at 15:00 Glucagon (Glucagen) 1 mg Q15M PRN IM DECREASED GLUCOSE; Start 10/09/18 at 15:00 Glucose (Glutose) 15 gm Q15M PRN BUCCAL DECREASED GLUCOSE; Start 10/09/18 at 15:00 Sodium Chloride 500 ml @ 500 mls/hr Q1H PRN IV BLOOD PRESSURE SUPPORT Last a dministered on 10/10/18 07:59; Admin Dose 500 MLS/HR; Start 10/09/18 at 19:30 Albuterol (Ventolin Hfa) 4 puff Q6H RESP THERAPY INH Last administered on 10/18/18 13:29; Admin Dose 4 PUFF; Start 10/10/18 at 02:00 Ipratropium [place] (Atrovent Hfa) 4 puff Q6H RESP THERAPY INH Last administered on 10/18/18 13:28; Admin Dose 4 PUFF; Start 10/10/18 at 02:00 Methylprednisolone Sodium Succinate (Solu-Medrol) 40 mg Q8 IV Last administered on 10/18/18 13:29; Admin Dose 40 MG; Start 10/14/18 at 14:00 Quetiapine Fumarate (Seroquel) 50 mg BID GTB Last administered on 10/18/18 08:27; Admin Dose 50 MG; Start 10/14/18 at 13:30 Lorazepam (Ativan) 1 mg Q4H PRN GTB AGITATION/ANXIETY Last administered on 10/18/18 13:30; Admin Dose 1 MG; Start 10/14/18 at 13:00 Lisinopril (Zestril) 2.5 mg DAILY PO Last administered on 10/18/18 08:28; Admin Dose 2.5 MG; Start 10/15/18 at 09:00 Hydromorphone HCl (Dilaudid) 2 mg Q4H PRN PO PAIN LEVEL 4-6; Start 10/14/18 at 17:30 Linagliptin (Tradjenta) 5 mg DAILY PO Last administered on 10/18/18 08:27; Admin Dose 5 MG; Start 10/16/18 at 10:30 Carvedilol (Coreg) 6.25 mg BID PO Last administered on 10/18/18 08:27; Admin Dose 6.25 MG; Start 10/17/18 at 21:00 Calcium Carbonate (Ca Carbonate) 1,250 mg TID GTB Last administered on 10/18/18 12:16; Admin Dose 1,250 MG; Start 10/17/18 at 14:00 Fentanyl (Duragesic 50 Mcg/Hr Patch) 1 patch Q72H TRANSDERM Last administered on 10/17/18 20:56; Admin Dose 1 PATCH; Start 10/17/18 at 20:30 Calcitriol (Rocaltrol) 0.25 mcg DAILY PO ; Start 10/18/18 at 09:00 Magnesium Sulfate 50 ml @ 25 mls/hr ONCE ONCE IVPB Last administered on 10/18/18at 14:23; Admin Dose 25 MLS/HR; Start 10/18/18 at 13:30; Stop 10/18/18 at 15:29 NEMO MARTINEZ M.D. Oct 18, 2018 14:35
--- NOTE | 2018-10-18 18:08 | PN ---
Date/Time of Note Date/Time of Note DATE: 10/18/18 TIME: 18:03 Assessment/Plan VTE Prophylaxis Risk score (from Ns)>0 risk: 6 SCD applied (from Ns): Yes Pharmacological prophylaxis: NA/contraindicated Pharm contraindication: other Lines/Catheters IV Catheter Type (from Nrsg): Mid Line Urinary Cath still in place: No Assessment/Plan Hospital Course Patient continues on ventilatory support, get anxious currently resting status post p.o. Dilaudid for pain Assessment/Plan - Acute on chronic hypoxemic respiratory failure with underlying ARDS, continue ventilatory support. Dr. Villa is following in pulmonology consultation. -Tachycardia, Dr. Joshi is following in cardiology consultation. - Cardiomyopathy with EF 35-40% - Rheumatoid arthritis. The patient's pain seems to be controlled with the current dose of fentanyl. - Dysphagia. Continue tube feeding. - Anemia of chronic disease. - Hypoparathyroidism with recent hypercalcemia, status post pamidronate. Ionized calcium is normal. - Hypertension. - Functional quadriplegia quadriplegia - Hx of severe cervical spinal cord stenosis with cord compression from C3-C5, s/p laminectomy. Critical care time spent 35 minutes. Further recommendations based on clinical course. Plan of care discussed with Dr. Rosales Result Diagram: 10/18/18 0442 10/18/18 0442 Results 24hrs Laboratory Tests Test 10/17/18 19:54 10/18/18 02:18 10/18/18 04:42 10/18/18 08:35 Bedside Glucose 152 136 158 White Blood Count 31.8 H Red Blood Count 3.58 L Hemoglobin 10.4 L Hematocrit 32.8 L Mean Corpuscular Volume 91.6 Mean Corpuscular 29.1 Hemoglobin Mean Corpuscular 31.7 L Hemoglobin Concent Red Cell Distribution 18.0 H Width Platelet Count 591 H Mean Platelet Volume 10.9 H Immature Granulocytes % 4.700 H Neutrophils % Segmented Neutrophils 73 % (Manual) Band Neutrophils % 6 H (Manual) Lymphocytes % Lymphocytes % (Manual) 9 L Reactive Lymphocytes 1 H % (Manual) Monocytes % Monocytes % (Manual) 10 Eosinophils % Basophils % Promyelocytes % (Manual) 1 H Nucleated Red Blood 1 H Cells % Immature Granulocytes # 1.490 H Neutrophils # Neutrophils # (Manual) 23.8 H Band Neutrophils # 1.9 H Lymphocytes (Manual) 2.8 Lymphocytes # Reactive Lymphocytes # 0.3 H Monocytes # Monocytes # (Manual) 3.1 H Eosinophils # Basophils # Promyelocytes # 0.3 H Nucleated Red Blood Cells # Platelet Estimate INCREASED Giant Platelets 2 H Polychromasia 2+ Anisocytosis 1+ Macrocytosis 1+ Sodium Level 137 Potassium Level 4.5 Chloride Level 95 L Carbon Dioxide Level 35 H Anion Gap 7 Blood Urea Nitrogen 27 H Creatinine 0.50 L Est Glomerular Filtrat > 60 Rate mL/min Glucose Level 134 Calcium Level 6.6 L Ionized Calcium 0.9 L (Measured) Phosphorus Level 3.8 Magnesium Level 1.9 Total Bilirubin 0.0 L Direct Bilirubin 0.00 Indirect Bilirubin 0.0 Aspartate Amino 33 Transf (AST/SGOT) Alanine 19 Aminotransferase (ALT/SG PT) Alkaline Phosphatase 210 H Total Protein 6.4 Albumin 3.3 Globulin 3.10 Albumin/Globulin Ratio 1.06 Test 10/18/18 13:44 Bedside Glucose 130 Exam/Review of Systems Exam Vitals Vital Signs Date Temp Pulse Resp B/P (MAP) Pulse Ox O2 O2 Flow FiO2 Time Delivery Rate 10/18/18 108 24 102/77 96 17:00 (85) 10/18/18 98.0 Mechanical 16:00 Ventilator 10/18/18 80 16:00 Intake and Output 10/17/18 10/17/18 10/18/18 1414:59 22:59 06:59 IntakeIntake Total 1080 ml 960 ml 640 ml OutputOutput Total 440 ml 630 ml 725 ml BalanceBalance 640 ml 330 ml -85 ml Exam Constitutional: alert, oriented, frail Neck: other (trach) Respiratory: diminished breath sounds Cardiovascular: regular rate and rhythm Gastrointestinal: soft, non-tender, other Musculoskeletal: other (Quadriplegia) Neurological: nl mental status Results Results 24hrs Laboratory Tests Test 10/17/18 19:54 10/18/18 02:18 10/18/18 04:42 10/18/18 08:35 Bedside Glucose 152 136 158 White Blood Count 31.8 H Red Blood Count 3.58 L Hemoglobin 10.4 L Hematocrit 32.8 L Mean Corpuscular Volume 91.6 Mean Corpuscular 29.1 Hemoglobin Mean Corpuscular 31.7 L Hemoglobin Concent Red Cell Distribution 18.0 H Width Platelet Count 591 H Mean Platelet Volume 10.9 H Immature Granulocytes % 4.700 H Neutrophils % Segmented Neutrophils 73 % (Manual) Band Neutrophils % 6 H (Manual) Lymphocytes % Lymphocytes % (Manual) 9 L Reactive Lymphocytes 1 H % (Manual) Monocytes % Monocytes % (Manual) 10 Eosinophils % Basophils % Promyelocytes % (Manual) 1 H Nucleated Red Blood 1 H Cells % Immature Granulocytes # 1.490 H Neutrophils # Neutrophils # (Manual) 23.8 H Band Neutrophils # 1.9 H Lymphocytes (Manual) 2.8 Lymphocytes # Reactive Lymphocytes # 0.3 H Monocytes # Monocytes # (Manual) 3.1 H Eosinophils # Basophils # Promyelocytes # 0.3 H Nucleated Red Blood Cells # Platelet Estimate INCREASED Giant Platelets 2 H Polychromasia 2+ Anisocytosis 1+ Macrocytosis 1+ Sodium Level 137 Potassium Level 4.5 Chloride Level 95 L Carbon Dioxide Level 35 H Anion Gap 7 Blood Urea Nitrogen 27 H Creatinine 0.50 L Est Glomerular Filtrat > 60 Rate mL/min Glucose Level 134 Calcium Level 6.6 L Ionized Calcium 0.9 L (Measured) Phosphorus Level 3.8 Magnesium Level 1.9 Total Bilirubin 0.0 L Direct Bilirubin 0.00 Indirect Bilirubin 0.0 Aspartate Amino 33 Transf (AST/SGOT) Alanine 19 Aminotransferase (ALT/SG PT) Alkaline Phosphatase 210 H Total Protein 6.4 Albumin 3.3 Globulin 3.10 Albumin/Globulin Ratio 1.06 Test 10/18/18 13:44 Bedside Glucose 130 Medications Medication Current Medications Acetaminophen (Tylenol Liquid) 650 mg Q4H PRN GTB MILD PAIN(1-3)OR ELEVATED TEMP Last administered on 10/16/18at 07:52; Admin Dose 650 MG; Start 10/09/18 at 14:00 Al Hydrox/Mg Hydrox/Simethicone (Mag-Al Plus) 15 ml Q6H PRN PO GASTROINTESTINAL UPSET Last administered on 10/17/18at 13:18; Admin Dose 15 ML; Start 10/09/18 at 14:00 Eye Lubricant (Artificial Tears Oph) 1 drop Q6H PRN BOTH EYES DRY EYES; Start 10/09/18 at 14:00 Bisacodyl (Dulcolax Supp) 10 mg DAILY PRN [place] CONSTIPATION; Start 10/09/18 at 14:00 Clonidine (Catapres) 0.1 mg DAILY PRN GTB ELEVATED BLOOD PRESSURE; Start 10/09/18 at 14:00 Diltiazem HCl (Cardizem Iv) 5 mg Q4 PRN IV ELEVATED HEART RATE Last administered on 10/18/18 01:09; Admin Dose 5 MG; Start 10/09/18 at 14:00 Diphenhydramine HCl (Benadryl Liquid Cup) 25 mg Q6 PRN GTB ITCHING Last adm inistered on 10/17/18 23:27; Admin Dose 25 MG; Start 10/09/18 at 14:00 Duloxetine HCl (Cymbalta) 30 mg DAILY PO Last administered on 10/18/18 08:28; Admin Dose 30 MG; Start 10/10/18 at 09:00 Epoetin Arpan (Epogen (Esrd)) 10,000 units TuSa@1300 SC Last administered on 10/18/18 13:32; Admin Dose 10,000 UNITS; Start 10/11/18 at 13:00 Gabapentin (Neurontin Liquid) 400 mg Q8 GTB Last administered on 10/18/18 13:30; Admin Dose 400 MG; Start 10/09/18 at 15:30 Hydralazine HCl (Apresoline) 10 mg Q4H PRN IV ELEVATED BLOOD PRESSURE; Start 10/09/18 at 14:00 Hydromorphone HCl (Dilaudid) 4 mg Q4H PRN PO MODERATE PAIN LEVEL 7-10 Last administered on 10/18/18 13:30; Admin Dose 4 MG; Start 10/09/18 at 14:00 Hydroxychloroquine Sulfate (Plaquenil) 200 mg BID PO Last administered on 10/18/18 08:27; Admin Dose 200 MG; Start 10/09/18 at 21:00 Diagnostic Test (Pha) (Accu-Chek) 1 ea 02 XX Last administered on 10/18/18 02:19; Admin Dose 1 EA; Start 10/10/18 at 02:00 Insulin Aspart (Novolog Insulin Pen) NOVOLOG *CUSTOM* ALGORITHM Q6H SC Last administered on 10/18/18 08:50; Admin Dose 1 UNIT; Start 10/09/18 at 14:00 Lactobacillus Acidophilus (Florajen3 Capsule) 1 each BID GTB Last administered on 10/18/18 08:28; Admin Dose 1 EACH; Start 10/09/18 at 21:00 Lansoprazole (Prevacid) 30 mg BID@06,18 GTB Last administered on 10/18/18 17:09; Admin Dose 30 MG; Start 10/09/18 at 18:00 Levetiracetam (Keppra Liquid) 500 mg BID GTB Last administered on 10/18/18 08:26; Admin Dose 500 MG; Start 10/09/18 at 21:00 Magnesium Oxide (Mag-Ox 400) 400 mg BID GTB Last administered on 10/18/18 08:27; Admin Dose 400 MG; Start 10/09/18 at 21:00 Metoclopramide HCl (Reglan) 10 mg TID IV Last administered on 10/18/18 12:16; Admin Dose 10 MG; Start 10/09/18 at 21:00 Miconazole Nitrate (Miconazole 2% Cr) 1 applic BID TOP Last administered on 10/18/18 08:29; Admin Dose 1 APPLIC; Start 10/09/18 at 21:00 Miconazole Nitrate (Miconazole 2% Cr) 1 applic Q12 PRN TOP rash; Start 10/09/18 at 14:00 Ondansetron HCl (Zofran Inj) 4 mg Q4H PRN IV NAUSEA AND/OR VOMITING Last administered on 10/16/18 21:31; Admin Dose 4 MG; Start 10/09/18 at 14:00 Polyethylene Glycol (Miralax) 17 gm DAILY PRN GTB CONSTIPATION; Start 10/09/18 at 14:00 Senna (Senokot) 2 tab Q8 PRN PO CONSTIPATION; Start 10/09/18 at 14:00 Trimethoprim/ Sulfamethoxazole (Bactrim Susp) 40 ml DAILY GTB Last administered on 10/18/18 08:26; Admin Dose 40 ML; Start 10/10/18 at 09:00 Zolpidem Tartrate (Ambien) 5 mg HS PRN PO INSOMNIA Last administered on 10/17/18 03:39; Admin Dose 5 MG; Start 10/09/18 at 14:00 Miscellaneous Information 1 ea NOTE XX ; Start 10/09/18 at 15:00 Glucose (Glutose) 15 gm Q15M PRN PO DECREASED GLUCOSE; Start 10/09/18 at 15:00 Glucose (Glutose) 22.5 gm Q15M PRN PO DECREASED GLUCOSE; Start 10/09/18 at 15:00 Dextrose (D50w Syringe) 25 ml Q15M PRN IV DECREASED GLUCOSE; Start 10/09/18 at 15:00 Dextrose (D50w Syringe) 50 ml Q15M PRN IV DECREASED GLUCOSE; Start 10/09/18 at 15:00 Glucagon (Glucagen) 1 mg Q15M PRN IM DECREASED GLUCOSE; Start 10/09/18 at 15:00 Glucose (Glutose) 15 gm Q15M PRN BUCCAL DECREASED GLUCOSE; Start 10/09/18 at 15:00 Sodium Chloride 500 ml @ 500 mls/hr Q1H PRN IV BLOOD PRESSURE SUPPORT Last a dministered on 10/10/18 07:59; Admin Dose 500 MLS/HR; Start 10/09/18 at 19:30 Albuterol (Ventolin Hfa) 4 puff Q6H RESP THERAPY INH Last administered on 10/18/18 13:29; Admin Dose 4 PUFF; Start 10/10/18 at 02:00 Ipratropium [place] (Atrovent Hfa) 4 puff Q6H RESP THERAPY INH Last administered on 10/18/18 13:28; Admin Dose 4 PUFF; Start 10/10/18 at 02:00 Methylprednisolone Sodium Succinate (Solu-Medrol) 40 mg Q8 IV Last administered on 10/18/18 13:29; Admin Dose 40 MG; Start 10/14/18 at 14:00 Quetiapine Fumarate (Seroquel) 50 mg BID GTB Last administered on 10/18/18 08:27; Admin Dose 50 MG; Start 10/14/18 at 13:30 Lorazepam (Ativan) 1 mg Q4H PRN GTB AGITATION/ANXIETY Last administered on 10/18/18 13:30; Admin Dose 1 MG; Start 10/14/18 at 13:00 Lisinopril (Zestril) 2.5 mg DAILY PO Last administered on 10/18/18 08:28; Admin Dose 2.5 MG; Start 10/15/18 at 09:00 Hydromorphone HCl (Dilaudid) 2 mg Q4H PRN PO PAIN LEVEL 4-6; Start 10/14/18 at 17:30 Linagliptin (Tradjenta) 5 mg DAILY PO Last administered on 10/18/18 08:27; Admin Dose 5 MG; Start 10/16/18 at 10:30 Carvedilol (Coreg) 6.25 mg BID PO Last administered on 10/18/18 08:27; Admin Dose 6.25 MG; Start 10/17/18 at 21:00 Calcium Carbonate (Ca Carbonate) 1,250 mg TID GTB Last administered on 10/18/18at 12:16; Admin Dose 1,250 MG; Start 10/17/18 at 14:00 Fentanyl (Duragesic 50 Mcg/Hr Patch) 1 patch Q72H TRANSDERM Last administered on 10/17/18at 20:56; Admin Dose 1 PATCH; Start 10/17/18 at 20:30 Calcitriol (Rocaltrol) 0.25 mcg DAILY PO ; Start 10/18/18 at 09:00 CAROLYN LANGLEY Oct 18, 2018 18:08
[2018-10-19] VITALS (31 sets, daily range): BP systolic 89–136; BP diastolic 65–84; PULSE 95–119; RESP 18–35
[2018-10-19] MEDS: ALBUTEROL HFA 8 GM INHALER INH SCH ×4 (01:28→19:52)
[2018-10-19] MEDS: IPRATROPIUM (HFA) 12.9 GM INHALER INH SCH ×4 (01:28→19:52)
[2018-10-19] MEDS: ACCU-CHEK XX SCH (03:20)
[2018-10-19] MEDS: INSULIN ASPART [NOVOLOG] 3 ML PEN SC SCH ×4 (03:20→20:30)
[2018-10-19] MEDS: HYDROmorphONE 2 MG TAB PO PRN ×4 (04:04→18:15)
[2018-10-19] MEDS: GABAPENTIN (50 MG/ML PO SYG) GTB SCH ×3 (05:12→21:52)
[2018-10-19] MEDS: LANSOPRAZOLE 30 MG CAP GTB SCH ×2 (05:12→17:35)
[2018-10-19] MEDS: METHYLPREDNISOLONE 40 MG INJ IV SCH ×3 (05:13→22:25)
--- NOTE | 2018-10-19 08:08 | PN ---
DATE: 10/19/2018 SUBJECTIVE: The patient is in serious but stable condition. No other acute events overnight. No fe vers, chills, nausea, or vomiting. OBJECTIVE: VITAL SIGNS: Blood pressure is 92/67, respirations 23, pulse 99, temperature 97.5. HEENT: Head is normocephalic. NECK: Supple. HEART: Regular rate. LUNGS: Show diminished breath sounds at the base. ABDOMEN: Soft, nontender to palpation. No rebound or guarding. EXTREMITIES: Negative for clubbing, cyanosis, no edema. DERMATOLOGIC: No rashes. MUSCULOSKELETAL: No joint effusion. NEUROLOGIC: No change in exam. MEDICATIONS: The patient's medications have been reviewed. LABORATORY DATA: Shows a white count 21.4, hemoglobin 9.6, platelet count 42. Sodium 134, potassium 5.5, chloride 92, bicarbonate 36, BUN 30, creatinine of 0.43, phosphorus 5.7. ASSESSMENT AND PLAN: 1. Hyperkalemia. Etiology is likely multifactorial secondary to Bactrim effect, OLAMIDE inhibitor. Evelia n at this point would be to hold low dose OLAMIDE inhibitor. We would also change the patient to renal t ube feeding and low potassium. Potassium levels remain elevated. We will discuss with mague burkett about changing possible Bactrim. 2. Hypernatremia, mild. We will continue to monitor. We will decrease free water flushes. 3. Nonoliguric acute kidney injury, etiology is secondary to hemodynamics. The patient's renal func tion has improved. We will continue current treatment plan. Continue supportive care, and renally d ose all medicines. 4. The patient is hypocalcemic. Continue vitamin D analogs. Continue calcium carbonate. The patie nt is also hypophosphatemic. We will adjust tube feeding to low phosphorus tube feeding. 5. Ventilator-dependent respiratory failure. Vent settings and ABG was reviewed. Continue to monit or. 6. Dysphagia. Continue tube feeding. 7. Quadriplegia. Continue to monitor. 8. Sepsis secondary to pneumonia. The patient is completing antibiotic course. 9. Hypertension. Etiology is multifactorial. We will hold OLAMIDE inhibitor at this time. Monitor blo od pressure closely. 10. Tachyarrhythmia. Continue current treatment plan. 11. Chronic pain syndrome. Continue current pain regimen. 12. Seizure disorder. 13. Continue medical management. 14. History of adrenal insufficiency. Continue Cortef. Dictated By: UNA HONG/EFREN Conf#: [id number] DID#: [id number] CC: DALTON DURBIN MD; NOLA VIDAL MD;*EndCC*
[2018-10-19] MEDS: METOCLOPRAMIDE 10 MG INJ IV SCH ×3 (08:31→20:33)
[2018-10-19] MEDS: TRIMETHOPRIM/SULFAMETHOX (PO SYG) GTB SCH (08:31)
[2018-10-19] MEDS: CA CARBONATE (250 MG/ML) 5ML CUP GTB SCH ×3 (08:31→20:31)
[2018-10-19] MEDS: QUETIAPINE 25 MG TAB GTB SCH ×2 (08:31→20:32)
[2018-10-19] MEDS: LEVETIRACETAM (100 MG/ML) 5ML CUP GTB SCH ×2 (08:31→20:31)
[2018-10-19] MEDS: HYDROXYCHLOROQUINE 200 MG TAB PO SCH ×2 (08:31→20:32)
[2018-10-19] MEDS: MAGNESIUM OXIDE 400 MG TAB GTB SCH ×2 (08:31→20:32)
[2018-10-19] MEDS: CALCITRIOL 0.25 MCG CAP PO SCH (08:32)
[2018-10-19] MEDS: LORAZEPAM 1 MG TAB GTB PRN ×2 (08:32→17:35)
[2018-10-19] MEDS: L ACIDOPHIL/B LACTIS/B LONGUM CAPSULE GTB SCH ×2 (08:32→20:32)
[2018-10-19] MEDS: DULOXETINE 30 MG CAP DR PO SCH (08:32)
[2018-10-19] MEDS: LINAGLIPTIN 5 MG TABLET PO SCH (08:33)
[2018-10-19] MEDS: MICONAZOLE 2% 30 GM CR TOP SCH ×2 (08:34→20:31)
[2018-10-19] MEDS: BALSAM PERU/CASTOR OIL 60 GM TUBE TOP SCH ×2 (08:35→20:31)
--- NOTE | 2018-10-19 09:44 | CONS ---
Assessment/Plan Assessment/Plan Assessment/Plan (Daily) Ventilator setting; AC of 20, tidal volume 400, PEEP of 10, 60% FiO2. Assessment and recommendations; 1. Patient with history of ARDS and VDR F as well as functional quadriplegia admitted for recurrent sepsis and pneumonia with interval improvement. 2. History of Aspergillus pneumonia as well as history of VATS. 3. History of hypertension. Obtain ABG on volume controlled mode. Continue current supportive care. Patient on Bactrim for PCP prophylaxis. Off other antibiotics. Overall prognosis remains poor. Further recommendations once ABG is performed. Consultation Date/Type/Reason Admit Date/Time Oct 09, 2018 at 12:16 Initial Consult Date 10/12/18 Type of Consult Pulmonary/critical care Patient's condition is stable. Remains completely awake and alert. Has remained hemodynamically stable. Patient also has been switched over to volume control ventilation from pressure-controlled mode. General exam; middle-aged male, on ventilator via tracheostomy, awake and alert. Watching television. Currently in no distress. Area Reason for Consultation H EENT exam; supple neck, no JVD. No lymphadenopathy. Midline trachea. No thyromegaly. Tracheostomy in place. Insertion site is clean. Patient is edentulous. Chest exam; diminished breath sounds throughout. S1-S2 audible, no murmurs. Regular rhythm, tachycardic. Abdomen exam; soft, G-tube in place. Nontender. Nondistended. No organomegaly. Bowel sounds audible. Extremity exam; no edema. [employer] exam; patient exhibiting stable functional quadriplegia with inability to move right upper extremity to some extent. Requesting Provider: NOLA VIDAL MD Date/Time of Note DATE: 10/19/18 TIME: 09:40 Exam/Review of Systems Exam Vitals Vital Signs Date Temp Pulse Resp B/P (MAP) Pulse Ox O2 O2 Flow FiO2 Time Delivery Rate 10/19/18 109 29 113/80 95 Mechanical 09:00 (91) Ventilator Trach Collar 10/19/18 60 08:10 10/19/18 98.0 08:00 Intake and Output 10/18/18 10/18/18 10/19/18 1515:00 23:00 07:00 IntakeIntake Total 840 ml 930 ml 840 ml OutputOutput Total 640 ml 830 ml 490 ml BalanceBalance 200 ml 100 ml 350 ml Results Result Diagram: 10/19/18 0432 10/19/18 0432 Results 24hrs Laboratory Tests Test 10/18/18 13:44 10/18/18 21:12 10/19/18 03:18 10/19/18 04:32 Bedside Glucose 130 168 160 White Blood Count 21.4 #H Red Blood Count 3.31 L Hemoglobin 9.6 L Hematocrit 31.0 L Mean Corpuscular Volume 93.7 Mean Corpuscular 29.0 Hemoglobin Mean Corpuscular 31.0 L Hemoglobin Concent Red Cell Distribution 18.6 H Width Platelet Count 482 H Mean Platelet Volume 10.6 H Immature Granulocytes % 4.100 H Neutrophils % 83.6 H Lymphocytes % 4.4 L Monocytes % 7.5 Eosinophils % 0.0 Basophils % 0.4 Nucleated Red Blood 0.2 H Cells % Immature Granulocytes # 0.880 H Neutrophils # 17.9 H Lymphocytes # 0.9 Monocytes # 1.6 H Eosinophils # 0.0 Basophils # 0.1 Nucleated Red Blood 0.0 Cells # Sodium Level 134 L Potassium Level 5.5 H Chloride Level 92 L Carbon Dioxide Level 36 H Anion Gap 6 Blood Urea Nitrogen 30 H Creatinine 0.43 L Est Glomerular Filtrat > 60 Rate mL/min Glucose Level 151 Calcium Level 6.2 L Ionized Calcium 0.9 L (Measured) Phosphorus Level 5.7 H Magnesium Level 2.4 Test 10/19/18 08:38 Bedside Glucose 139 Medications Medication Current Medications Acetaminophen (Tylenol Liquid) 650 mg Q4H PRN GTB MILD PAIN(1-3)OR ELEVATED TEMP Last administered on 10/16/18at 07:52; Admin Dose 650 MG; Start 10/09/18 at 14:00 Al Hydrox/Mg Hydrox/Simethicone (Mag-Al Plus) 15 ml Q6H PRN PO GASTROINTESTINAL UPSET Last administered on 10/17/18at 13:18; Admin Dose 15 ML; Start 10/09/18 at 14:00 Eye Lubricant (Artificial Tears Oph) 1 drop Q6H PRN BOTH EYES DRY EYES; Start 10/09/18 at 14:00 Bisacodyl (Dulcolax Supp) 10 mg DAILY PRN [place] CONSTIPATION; Start 10/09/18 at 14:00 Clonidine (Catapres) 0.1 mg DAILY PRN GTB ELEVATED BLOOD PRESSURE; Start 10/09/18 at 14:00 Diltiazem HCl (Cardizem Iv) 5 mg Q4 PRN IV ELEVATED HEART RATE Last administered on 10/18/18 01:09; Admin Dose 5 MG; Start 10/09/18 at 14:00 Diphenhydramine HCl (Benadryl Liquid Cup) 25 mg Q6 PRN GTB ITCHING Last administered on 10/17/18 23:27; Admin Dose 25 MG; Start 10/09/18 at 14:00 Duloxetine HCl (Cymbalta) 30 mg DAILY PO Last administered on 10/19/18 08:32; Admin Dose 30 MG; Start 10/10/18 at 09:00 Epoetin Arpan (Epogen (Esrd)) 10,000 units TuSa@1300 SC Last administered on 10/18/18 13:32; Admin Dose 10,000 UNITS; Start 10/11/18 at 13:00 Gabapentin (Neurontin Liquid) 400 mg Q8 GTB Last administered on 10/19/18 05:12; Admin Dose 400 MG; Start 10/09/18 at 15:30 Hydralazine HCl (Apresoline) 10 mg Q4H PRN IV ELEVATED BLOOD PRESSURE; Start 10/09/18 at 14:00 Hydromorphone HCl (Dilaudid) 4 mg Q4H PRN PO MODERATE PAIN LEVEL 7-10 Last administered on 10/19/18 04:04; Admin Dose 4 MG; Start 10/09/18 at 14:00 Hydroxychloroquine Sulfate (Plaquenil) 200 mg BID PO Last administered on 10/19/18 08:31; Admin Dose 200 MG; Start 10/09/18 at 21:00 Diagnostic Test (Pha) (Accu-Chek) 1 ea 02 XX Last administered on 10/19/18 03:20; Admin Dose 1 EA; Start 10/10/18 at 02:00 Insulin Aspart (Novolog Insulin Pen) NOVOLOG *CUSTOM* ALGORITHM Q6H SC Last administered on 10/19/18 03:20; Admin Dose 1 UNIT; Start 10/09/18 at 14:00 Lactobacillus Acidophilus (Florajen3 Capsule) 1 each BID GTB Last administered on 10/19/18 08:32; Admin Dose 1 EACH; Start 10/09/18 at 21:00 Lansoprazole (Prevacid) 30 mg BID@06,18 GTB Last administered on 10/19/18 05:12; Admin Dose 30 MG; Start 10/09/18 at 18:00 Levetiracetam (Keppra Liquid) 500 mg BID GTB Last administered on 10/19/18 08:31; Admin Dose 500 MG; Start 10/09/18 at 21:00 Magnesium Oxide (Mag-Ox 400) 400 mg BID GTB Last administered on 10/19/18 08:31; Admin Dose 400 MG; Start 10/09/18 at 21:00 Metoclopramide HCl (Reglan) 10 mg TID IV Last administered on 10/19/18 08:31; Admin Dose 10 MG; Start 10/09/18 at 21:00 Miconazole Nitrate (Miconazole 2% Cr) 1 applic BID TOP Last administered on 10/19/18 08:34; Admin Dose 1 APPLIC; Start 10/09/18 at 21:00 Miconazole Nitrate (Miconazole 2% Cr) 1 applic Q12 PRN TOP rash; Start 10/09/18 at 14:00 Ondansetron HCl (Zofran Inj) 4 mg Q4H PRN IV NAUSEA AND/OR VOMITING Last administered on 10/16/18 21:31; Admin Dose 4 MG; Start 10/09/18 at 14:00 Polyethylene Glycol (Miralax) 17 gm DAILY PRN GTB CONSTIPATION; Start 10/09/18 at 14:00 Senna (Senokot) 2 tab Q8 PRN PO CONSTIPATION; Start 10/09/18 at 14:00 Trimethoprim/ Sulfamethoxazole (Bactrim Susp) 40 ml DAILY GTB Last administered on 10/19/18 08:31; Admin Dose 40 ML; Start 10/10/18 at 09:00 Zolpidem Tartrate (Ambien) 5 mg HS PRN PO INSOMNIA Last administered on 10/17/18 03:39; Admin Dose 5 MG; Start 10/09/18 at 14:00 Miscellaneous Information 1 ea NOTE XX ; Start 10/09/18 at 15:00 Glucose (Glutose) 15 gm Q15M PRN PO DECREASED GLUCOSE; Start 10/09/18 at 15:00 Glucose (Glutose) 22.5 gm Q15M PRN PO DECREASED GLUCOSE; Start 10/09/18 at 15:00 Dextrose (D50w Syringe) 25 ml Q15M PRN IV DECREASED GLUCOSE; Start 10/09/18 at 15:00 Dextrose (D50w Syringe) 50 ml Q15M PRN IV DECREASED GLUCOSE; Start 10/09/18 at 15:00 Glucagon (Glucagen) 1 mg Q15M PRN IM DECREASED GLUCOSE; Start 10/09/18 at 15:00 Glucose (Glutose) 15 gm Q15M PRN BUCCAL DECREASED GLUCOSE; Start 10/09/18 at 15 :00 Sodium Chloride 500 ml @ 500 mls/hr Q1H PRN IV BLOOD PRESSURE SUPPORT Last administered on 10/10/18 07:59; Admin Dose 500 MLS/HR; Start 10/09/18 at 19:30 Albuterol (Ventolin Hfa) 4 puff Q6H RESP THERAPY INH Last administered on 10/19/18 08:19; Admin Dose 4 PUFF; Start 10/10/18 at 02:00 Ipratropium [place] (Atrovent Hfa) 4 puff Q6H RESP THERAPY INH Last administered on 10/19/18 08:19; Admin Dose 4 PUFF; Start 10/10/18 at 02:00 Methylprednisolone Sodium Succinate (Solu-Medrol) 40 mg Q8 IV Last administered on 10/19/18 05:13; Admin Dose 40 MG; Start 10/14/18 at 14:00 Quetiapine Fumarate (Seroquel) 50 mg BID GTB Last administered on 10/19/18 08:31; Admin Dose 50 MG; Start 10/14/18 at 13:30 Lorazepam (Ativan) 1 mg Q4H PRN GTB AGITATION/ANXIETY Last administered on 10/19/18 08:32; Admin Dose 1 MG; Start 10/14/18 at 13:00 Lisinopril (Zestril) 2.5 mg DAILY PO Last administered on 10/18/18 08:28; Admin Dose 2.5 MG; Start 10/15/18 at 09:00; Status Hold Hydromorphone HCl (Dilaudid) 2 mg Q4H PRN PO PAIN LEVEL 4-6 Last administered on 10/19/18 08:01; Admin Dose 2 MG; Start 10/14/18 at 17:30 Linagliptin (Tradjenta) 5 mg DAILY PO Last administered on 10/19/18 08:33; Admin Dose 5 MG; Start 10/16/18 at 10:30 Carvedilol (Coreg) 6.25 mg BID PO Last administered on 10/19/18 08:32; Admin Dose 6.25 MG; Start 10/17/18 at 21:00 Calcium Carbonate (Ca Carbonate) 1,250 mg TID GTB Last administered on 10/19/18 08:31; Admin Dose 1,250 MG; Start 10/17/18 at 14:00 Fentanyl (Duragesic 50 Mcg/Hr Patch) 1 patch Q72H TRANSDERM Last administered on 10/17/18 20:56; Admin Dose 1 PATCH; Start 10/17/18 at 20:30 Calcitriol (Rocaltrol) 0.25 mcg DAILY PO Last administered on 10/19/18 08:32; Admin Dose 0.25 MCG; Start 10/18/18 at 09:00 PILAR BERGER Oct 19, 2018 09:44
--- NOTE | 2018-10-19 10:24 | CONS ---
Assessment/Plan Assessment/Plan Hospital Course (Demo Recall) IMPRESSION: 1. Tachycardia at this time in the setting of fevers and respiratory distress, most consistent with sinus tachycardia likely driving this process. 2. Hypertension with borderline hypotension at this time. -still borderline Hotn 3. Abnormal electrocardiogram at baseline. 4. Chronic respiratory failure, status post tracheostomy.-weaning vent support 5. Dysphagia, status post G-tube. 6. Quadriplegia. 7. Renal insufficiency, on steroids. 8. Chronic obstructive pulmonary disease. 9. Rheumatoid arthritis. 10. Chronic kidney disease. 11. Diabetes mellitus. 12.Adrenal insufficiency 14. cardiomyopathy-EF 35-40% by echo this admit Recc -ICU -Vent support as necessary -Follow volume status clsoely -Continue abx's and f/u cx data -continue steroids -low dose BB/ACEI as tolerated only -s/p dose IVP digoxin with reasonable HR control Consultation Date/Type/Reason Admit Date/Time Oct 09, 2018 at 12:16 Initial Consult Date 10/09/18 Type of Consult Cardiology Reason for Consultation tachycarda Requesting Provider: NOLA VIDAL MD Date/Time of Note DATE: 10/19/18 TIME: 10:21 Exam/Review of Systems Vital Signs Vitals Vital Signs Date Temp Pulse Resp B/P (MAP) Pulse Ox O2 O2 Flow FiO2 Time Delivery Rate 10/19/18 109 29 113/80 95 Mechanical 09:00 (91) Ventilator Trach Collar 10/19/18 60 08:10 10/19/18 98.0 08:00 Intake and Output 10/18/18 10/18/18 10/19/18 1515:00 23:00 07:00 IntakeIntake Total 840 ml 930 ml 840 ml OutputOutput Total 640 ml 830 ml 490 ml BalanceBalance 200 ml 100 ml 350 ml Exam Exam Review of Systems: CONSTITUTIONAL: No fevers, chills. PULMONARY: No sob CARDIOVASCULAR: No chest pain/palpitations GASTROINTESTINAL: No nausea/vomiting. GENITOURINARY: No hematuria/dysuria. MUSCULOSKELETAL: No myagias/arthalgias. PSYCHIATRIC: The patient denies depression. NEUROLOGIC: No weakness Constitutional: alert Psych: no complaints Head: normocephalic ENMT: mucosa pink and moist Neck: supple, jvd (9 cm water) Respiratory: diminished breath sounds (at bases/B) Cardiovascular: regular rate and rhythm Gastrointestinal: soft, non-tender Musculoskeletal: muscle tone (generalized weakness) Extremities: edema (none) Labs Result Diagram: 10/19/18 0432 10/19/18 0432 Results 24hrs Laboratory Tests Test 10/18/18 13:44 10/18/18 21:12 10/19/18 03:18 10/19/18 04:32 Bedside Glucose 130 168 160 White Blood Count 21.4 #H Red Blood Count 3.31 L Hemoglobin 9.6 L Hematocrit 31.0 L Mean Corpuscular 93.7 Volume Mean Corpuscular 29.0 Hemoglobin Mean Corpuscular 31.0 L Hemoglobin Concent Red Cell 18.6 H Distribution Width Platelet Count 482 H Mean Platelet 10.6 H Volume Immature 4.100 H Granulocytes % Neutrophils % 83.6 H Lymphocytes % 4.4 L Monocytes % 7.5 Eosinophils % 0.0 Basophils % 0.4 Nucleated Red 0.2 H Blood Cells % Immature 0.880 H Granulocytes # Neutrophils # 17.9 H Lymphocytes # 0.9 Monocytes # 1.6 H Eosinophils # 0.0 Basophils # 0.1 Nucleated Red 0.0 Blood Cells # Sodium Level 134 L Potassium Level 5.5 H Chloride Level 92 L Carbon Dioxide 36 H Level Anion Gap 6 Blood Urea 30 H Nitrogen Creatinine 0.43 L Est Glomerular > 60 Filtrat Rate mL/min Glucose Level 151 Calcium Level 6.2 L Ionized Calcium 0.9 L (Measured) Phosphorus Level 5.7 H Magnesium Level 2.4 Test 10/19/18 08:38 10/19/18 09:22 Bedside Glucose 139 Blood Gas Specimen Blood arterial Source Arterial Blood 10/19/2018 9:48:18 Date Drawn AM Arterial Blood pH 7.378 (Temp corrected) Arterial Blood 56.6 H pCO2 (Temp correct) Arterial Blood pO2 104.1 H (Temp corrected) Arterial Blood 32.6 H HCO3 Arterial Blood 6.3 H Base Excess Arterial Blood 97.1 Oxygen Saturation Chandler Test ACCEPTAB Arterial Blood Gas Left Radial Puncture Site Arterial 0.7 Blood Carboxyhemog lobin Arterial Blood 0.3 Methemoglobin Blood Gas A-a O2 334.2 H Differential Oxyhemoglobin 96.1 Percent Blood Gas 37.0 Temperature Blood Gas 20.0 Respiration Rate Blood Gas Actual 27 Respiration Rate Blood Gas Modality VENT - AC FiO2 70.0 Blood Gas Tidal 400.0 Volume Blood Gas Low PEEP 10.0 Setting Blood Gas Notified TM Whom Blood Gas Notified 10/19/2018 10:03:01 Time AM Medications Medications Current Medications Acetaminophen (Tylenol Liquid) 650 mg Q4H PRN GTB MILD PAIN(1-3)OR ELEVATED TEMP Last administered on 10/16/18 07:52; Admin Dose 650 MG; Start 10/09/18 at 14:00 Al Hydrox/Mg Hydrox/Simethicone (Mag-Al Plus) 15 ml Q6H PRN PO GASTROINTESTINAL UPSET Last administered on 10/17/18 13:18; Admin Dose 15 ML; Start 10/09/18 at 1 4:00 Eye Lubricant (Artificial Tears Oph) 1 drop Q6H PRN BOTH EYES DRY EYES; Start 10/09/18 at 14:00 Bisacodyl (Dulcolax Supp) 10 mg DAILY PRN [place] CONSTIPATION; Start 10/09/18 at 14:00 Clonidine (Catapres) 0.1 mg DAILY PRN GTB ELEVATED BLOOD PRESSURE; Start 10/09/18 at 14:00 Diltiazem HCl (Cardizem Iv) 5 mg Q4 PRN IV ELEVATED HEART RATE Last administered on 10/18/18 01:09; Admin Dose 5 MG; Start 10/09/18 at 14:00 Diphenhydramine HCl (Benadryl Liquid Cup) 25 mg Q6 PRN GTB ITCHING Last adminis tered on 10/17/18 23:27; Admin Dose 25 MG; Start 10/09/18 at 14:00 Duloxetine HCl (Cymbalta) 30 mg DAILY PO Last administered on 10/19/18 08:32; Admin Dose 30 MG; Start 10/10/18 at 09:00 Epoetin Arpan (Epogen (Esrd)) 10,000 units TuSa@1300 SC Last administered on 10/18/18 13:32; Admin Dose 10,000 UNITS; Start 10/11/18 at 13:00 Gabapentin (Neurontin Liquid) 400 mg Q8 GTB Last administered on 10/19/18 05:12; Admin Dose 400 MG; Start 10/09/18 at 15:30 Hydralazine HCl (Apresoline) 10 mg Q4H PRN IV ELEVATED BLOOD PRESSURE; Start 10/09/18 at 14:00 Hydromorphone HCl (Dilaudid) 4 mg Q4H PRN PO MODERATE PAIN LEVEL 7-10 Last administered on 10/19/18 04:04; Admin Dose 4 MG; Start 10/09/18 at 14:00 Hydroxychloroquine Sulfate (Plaquenil) 200 mg BID PO Last administered on 10/19/18 08:31; Admin Dose 200 MG; Start 10/09/18 at 21:00 Diagnostic Test (Pha) (Accu-Chek) 1 ea 02 XX Last administered on 10/19/18 03:20; Admin Dose 1 EA; Start 10/10/18 at 02:00 Insulin Aspart (Novolog Insulin Pen) NOVOLOG *CUSTOM* ALGORITHM Q6H SC Last administered on 10/19/18 03:20; Admin Dose 1 UNIT; Start 10/09/18 at 14:00 Lactobacillus Acidophilus (Florajen3 Capsule) 1 each BID GTB Last administered on 10/19/18 08:32; Admin Dose 1 EACH; Start 10/09/18 at 21:00 Lansoprazole (Prevacid) 30 mg BID@06,18 GTB Last administered on 10/19/18 05:12; Admin Dose 30 MG; Start 10/09/18 at 18:00 Levetiracetam (Keppra Liquid) 500 mg BID GTB Last administered on 10/19/18 08:31; Admin Dose 500 MG; Start 10/09/18 at 21:00 Magnesium Oxide (Mag-Ox 400) 400 mg BID GTB Last administered on 10/19/18 08:31; Admin Dose 400 MG; Start 10/09/18 at 21:00 Metoclopramide HCl (Reglan) 10 mg TID IV Last administered on 10/19/18 08:31; Admin Dose 10 MG; Start 10/09/18 at 21:00 Miconazole Nitrate (Miconazole 2% Cr) 1 applic BID TOP Last administered on 10/19/18 08:34; Admin Dose 1 APPLIC; Start 10/09/18 at 21:00 Miconazole Nitrate (Miconazole 2% Cr) 1 applic Q12 PRN TOP rash; Start 10/09/18 at 14:00 Ondansetron HCl (Zofran Inj) 4 mg Q4H PRN IV NAUSEA AND/OR VOMITING Last administered on 10/16/18 21:31; Admin Dose 4 MG; Start 10/09/18 at 14:00 Polyethylene Glycol (Miralax) 17 gm DAILY PRN GTB CONSTIPATION; Start 10/09/18 at 14:00 Senna (Senokot) 2 tab Q8 PRN PO CONSTIPATION; Start 10/09/18 at 14:00 Trimethoprim/ Sulfamethoxazole (Bactrim Susp) 40 ml DAILY GTB Last administered on 10/19/18 08:31; Admin Dose 40 ML; Start 10/10/18 at 09:00 Zolpidem Tartrate (Ambien) 5 mg HS PRN PO INSOMNIA Last administered on 03:39; Admin Dose 5 MG; Start 10/09/18 at 14:00 Miscellaneous Information 1 ea NOTE XX ; Start 10/09/18 at 15:00 Glucose (Glutose) 15 gm Q15M PRN PO DECREASED GLUCOSE; Start 10/09/18 at 15:00 Glucose (Glutose) 22.5 gm Q15M PRN PO DECREASED GLUCOSE; Start 10/09/18 at 15:00 Dextrose (D50w Syringe) 25 ml Q15M PRN IV DECREASED GLUCOSE; Start 10/09/18 at 15:00 Dextrose (D50w Syringe) 50 ml Q15M PRN IV DECREASED GLUCOSE; Start 10/09/18 at 15:00 Glucagon (Glucagen) 1 mg Q15M PRN IM DECREASED GLUCOSE; Start 10/09/18 at 15:00 Glucose (Glutose) 15 gm Q15M PRN BUCCAL DECREASED GLUCOSE; Start 10/09/18 at 15:00 Sodium Chloride 500 ml @ 500 mls/hr Q1H PRN IV BLOOD PRESSURE SUPPORT Last administered on 10/10/18at 07:59; Admin Dose 500 MLS/HR; Start 10/09/18 at 19:30 Albuterol (Ventolin Hfa) 4 puff Q6H RESP THERAPY INH Last administered on 10/19/18 08:19; Admin Dose 4 PUFF; Start 10/10/18 at 02:00 Ipratropium [place] (Atrovent Hfa) 4 puff Q6H RESP THERAPY INH Last administered on 10/19/18 08:19; Admin Dose 4 PUFF; Start 10/10/18 at 02:00 Methylprednisolone Sodium Succinate (Solu-Medrol) 40 mg Q8 IV Last administered on 10/19/18 05:13; Admin Dose 40 MG; Start 10/14/18 at 14:00 Quetiapine Fumarate (Seroquel) 50 mg BID GTB Last administered on 10/19/18 08:31; Admin Dose 50 MG; Start 10/14/18 at 13:30 Lorazepam (Ativan) 1 mg Q4H PRN GTB AGITATION/ANXIETY Last administered on 08:32; Admin Dose 1 MG; Start 10/14/18 at 13:00 Lisinopril (Zestril) 2.5 mg DAILY PO Last administered on 10/18/18 08:28; Admin Dose 2.5 MG; Start 10/15/18 at 09:00; Status Hold Hydromorphone HCl (Dilaudid) 2 mg Q4H PRN PO PAIN LEVEL 4-6 Last administered on 10/19/18 08:01; Admin Dose 2 MG; Start 10/14/18 at 17:30 Linagliptin (Tradjenta) 5 mg DAILY PO Last administered on 10/19/18 08:33; Adm in Dose 5 MG; Start 10/16/18 at 10:30 Carvedilol (Coreg) 6.25 mg BID PO Last administered on 10/19/18 08:32; Admin Dose 6.25 MG; Start 10/17/18 at 21:00 Calcium Carbonate (Ca Carbonate) 1,250 mg TID GTB Last administered on 10/19/18 08:31; Admin Dose 1,250 MG; Start 10/17/18 at 14:00 Fentanyl (Duragesic 50 Mcg/Hr Patch) 1 patch Q72H TRANSDERM Last administered on 10/17/18 20:56; Admin Dose 1 PATCH; Start 10/17/18 at 20:30 Calcitriol (Rocaltrol) 0.25 mcg DAILY PO Last administered on 10/19/18 08:32; Admin Dose 0.25 MCG; Start 10/18/18 at 09:00 BRISA HAQUE 6, 2019 10:24
[2018-10-19] MEDS ORDERED: CALCITRIOL 1 MCG INJ IV ONE (14:00)
[2018-10-19] MEDS: LORAZEPAM 1 MG TAB GTB SCH ×2 (14:36→20:37)
--- NOTE | 2018-10-19 15:26 | PN ---
Date/Time of Note Date/Time of Note DATE: 10/19/18 TIME: 15:18 Assessment/Plan VTE Prophylaxis Risk score (from Ns)>0 risk: 7 SCD applied (from Ns): Yes Pharmacological prophylaxis: NA/contraindicated Pharm contraindication: bleeding Lines/Catheters IV Catheter Type (from Nrsg): Mid Line Urinary Cath still in place: No (Condom Cath) Assessment/Plan Hospital Course Patient is awake alert, continues on ventilatory support with 70% FiO2 and PEEP decreased to 5 today. Pain is well controlled on fentanyl patch and Dilaudid as needed. Continue Ativan [id number] for anxiety and agitation, patient is currently calm follows commands, was able to work with physical therapy. Assessment/Plan - Acute on chronic hypoxemic respiratory failure with underlying ARDS, continue ventilatory support. Dr. Villa is following in pulmonology consultation. - Acute kidney injury, continue to monitor BUN and creatinine. G-tube feeding changed to renal source. Dr. Hobson is following in nephrology consultation. -Tachycardia, Dr. Joshi is following in cardiology consultation. - Cardiomyopathy with EF 35-40% - Rheumatoid arthritis with steroid dependence. The patient's pain seems to be controlled with the current dose of fentanyl. - Dysphagia. Continue GT feeding. - Anemia of chronic disease. - Hypoparathyroidism with recent hypercalcemia, status post pamidronate. - Hypertension. - Functional quadriplegia - Hx of severe cervical spinal cord stenosis with cord compression from C3-C5, s/p laminectomy. - History of fibromyalgia rheumatica - Hx of VAT on 08/11/2018 Critical care time spent 30 minutes. Further recommendations based on clinical course. Plan of care discussed with Dr. Rosales Result Diagram: 10/19/18 0432 10/19/18 0432 Results 24hrs Laboratory Tests Test 10/18/18 21:12 10/19/18 03:18 10/19/18 04:32 10/19/18 08:38 Bedside Glucose 168 160 139 White Blood Count 21.4 #H Red Blood Count 3.31 L Hemoglobin 9.6 L Hematocrit 31.0 L Mean Corpuscular 93.7 Volume Mean Corpuscular 29.0 Hemoglobin Mean Corpuscular 31.0 L Hemoglobin Concent Red Cell 18.6 H Distribution Width Platelet Count 482 H Mean Platelet 10.6 H Volume Immature 4.100 H Granulocytes % Neutrophils % 83.6 H Lymphocytes % 4.4 L Monocytes % 7.5 Eosinophils % 0.0 Basophils % 0.4 Nucleated Red 0.2 H Blood Cells % Immature 0.880 H Granulocytes # Neutrophils # 17.9 H Lymphocytes # 0.9 Monocytes # 1.6 H Eosinophils # 0.0 Basophils # 0.1 Nucleated Red 0.0 Blood Cells # Sodium Level 134 L Potassium Level 5.5 H Chloride Level 92 L Carbon Dioxide 36 H Level Anion Gap 6 Blood Urea 30 H Nitrogen Creatinine 0.43 L Est Glomerular > 60 Filtrat Rate mL/min Glucose Level 151 Calcium Level 6.2 L Ionized Calcium 0.9 L (Measured) Phosphorus Level 5.7 H Magnesium Level 2.4 Test 10/19/18 09:22 10/19/18 14:37 Blood Gas Specimen Blood arterial Source Arterial Blood 10/19/2018 9:48:18 Date Drawn AM Arterial Blood pH 7.378 (Temp corrected) Arterial Blood 56.6 H pCO2 (Temp correct) Arterial Blood pO2 104.1 H (Temp corrected) Arterial Blood 32.6 H HCO3 Arterial Blood 6.3 H Base Excess Arterial Blood 97.1 Oxygen Saturation [place] Test ACCEPTAB Arterial Blood Gas Left Radial Puncture Site Arterial 0.7 Blood Carboxyhemog lobin Arterial Blood 0.3 Methemoglobin Blood Gas A-a O2 334.2 H Differential Oxyhemoglobin 96.1 Percent Blood Gas 37.0 Temperature Blood Gas 20.0 Respiration Rate Blood Gas Actual 27 Respiration Rate Blood Gas Modality VENT - AC FiO2 70.0 Blood Gas Tidal 400.0 Volume Blood Gas Low PEEP 10.0 Setting Blood Gas Notified TM Whom Blood Gas Notified 10/19/2018 10:03:01 Time AM Bedside Glucose 115 Exam/Review of Systems Exam Vitals Vital Signs Date Temp Pulse Resp B/P (MAP) Pulse Ox O2 O2 Flow FiO2 Time Delivery Rate 10/19/18 108 30 96 70 14:53 10/19/18 99/68 (78) Mechanical 13:00 Ventilator Trach Collar 10/19/18 98.3 12:00 Intake and Output 10/18/18 10/18/18 10/19/18 1414:59 22:59 06:59 IntakeIntake Total 840 ml 930 ml 840 ml OutputOutput Total 640 ml 560 ml 840 ml BalanceBalance 200 ml 370 ml 0 ml Exam Constitutional: alert, oriented, frail Neck: other (trach) Respiratory: diminished breath sounds Cardiovascular: regular rate and rhythm Gastrointestinal: soft, non-tender, other Neurological: nl mental status Results Results 24hrs Laboratory Tests Test 10/18/18 21:12 10/19/18 03:18 10/19/18 04:32 10/19/18 08:38 Bedside Glucose 168 160 139 White Blood Count 21.4 #H Red Blood Count 3.31 L Hemoglobin 9.6 L Hematocrit 31.0 L Mean Corpuscular 93.7 Volume Mean Corpuscular 29.0 Hemoglobin Mean Corpuscular 31.0 L Hemoglobin Concent Red Cell 18.6 H Distribution Width Platelet Count 482 H Mean Platelet 10.6 H Volume Immature 4.100 H Granulocytes % Neutrophils % 83.6 H Lymphocytes % 4.4 L Monocytes % 7.5 Eosinophils % 0.0 Basophils % 0.4 Nucleated Red 0.2 H Blood Cells % Immature 0.880 H Granulocytes # Neutrophils # 17.9 H Lymphocytes # 0.9 Monocytes # 1.6 H Eosinophils # 0.0 Basophils # 0.1 Nucleated Red 0.0 Blood Cells # Sodium Level 134 L Potassium Level 5.5 H Chloride Level 92 L Carbon Dioxide 36 H Level Anion Gap 6 Blood Urea 30 H Nitrogen Creatinine 0.43 L Est Glomerular > 60 Filtrat Rate mL/min Glucose Level 151 Calcium Level 6.2 L Ionized Calcium 0.9 L (Measured) Phosphorus Level 5.7 H Magnesium Level 2.4 Test 10/19/18 09:22 10/19/18 14:37 Blood Gas Specimen Blood arterial Source Arterial Blood 10/19/2018 9:48:18 Date Drawn AM Arterial Blood pH 7.378 (Temp corrected) Arterial Blood 56.6 H pCO2 (Temp correct) Arterial Blood pO2 104.1 H (Temp corrected) Arterial Blood 32.6 H HCO3 Arterial Blood 6.3 H Base Excess Arterial Blood 97.1 Oxygen Saturation Chandler Test ACCEPTAB Arterial Blood Gas Left Radial Puncture Site Arterial 0.7 Blood Carboxyhemog lobin Arterial Blood 0.3 Methemoglobin Blood Gas A-a O2 334.2 H Differential Oxyhemoglobin 96.1 Percent Blood Gas 37.0 Temperature Blood Gas 20.0 Respiration Rate Blood Gas Actual 27 Respiration Rate Blood Gas Modality VENT - AC FiO2 70.0 Blood Gas Tidal 400.0 Volume Blood Gas Low PEEP 10.0 Setting Blood Gas Notified TM Whom Blood Gas Notified 10/19/2018 10:03:01 Time AM Bedside Glucose 115 Medications Medication Current Medications Acetaminophen (Tylenol Liquid) 650 mg Q4H PRN GTB MILD PAIN(1-3)OR ELEVATED TEMP Last administered on 10/16/18 07:52; Admin Dose 650 MG; Start 10/09/18 at 14:00 Al Hydrox/Mg Hydrox/Simethicone (Mag-Al Plus) 15 ml Q6H PRN PO GASTROINTESTINAL UPSET Last administered on 10/17/18 13:18; Admin Dose 15 ML; Start 10/09/18 at 14:00 Eye Lubricant (Artificial Tears Oph) 1 drop Q6H PRN BOTH EYES DRY EYES; Start 10/09/18 at 14:00 Bisacodyl (Dulcolax Supp) 10 mg DAILY PRN [place] CONSTIPATION; Start 10/09/18 at 14:00 Clonidine (Catapres) 0.1 mg DAILY PRN GTB ELEVATED BLOOD PRESSURE; Start 10/09/18 at 14:00 Diltiazem HCl (Cardizem Iv) 5 mg Q4 PRN IV ELEVATED HEART RATE Last administered on 10/18/18 01:09; Admin Dose 5 MG; Start 10/09/18 at 14:00 Diphenhydramine HCl (Benadryl Liquid Cup) 25 mg Q6 PRN GTB ITCHING Last administered on 10/17/18 23:27; Admin Dose 25 MG; Start 10/09/18 at 14:00 Duloxetine HCl (Cymbalta) 30 mg DAILY PO Last administered on 10/19/18 08:32; Admin Dose 30 MG; Start 10/10/18 at 09:00 Epoetin Arpan (Epogen (Esrd)) 10,000 units TuSa@1300 SC Last administered on 10/18/18 13:32; Admin Dose 10,000 UNITS; Start 10/11/18 at 13:00 Gabapentin (Neurontin Liquid) 400 mg Q8 GTB Last administered on 10/19/18 1 3:09; Admin Dose 400 MG; Start 10/09/18 at 15:30 Hydralazine HCl (Apresoline) 10 mg Q4H PRN IV ELEVATED BLOOD PRESSURE; Start 10/09/18 at 14:00 Hydromorphone HCl (Dilaudid) 4 mg Q4H PRN PO MODERATE PAIN LEVEL 7-10 Last administered on 10/19/18 13:09; Admin Dose 4 MG; Start 10/09/18 at 14:00 Hydroxychloroquine Sulfate (Plaquenil) 200 mg BID PO Last administered on 10/19/18 08:31; Admin Dose 200 MG; Start 10/09/18 at 21:00 Diagnostic Test (Pha) (Accu-Chek) 1 ea 02 XX Last administered on 10/19/18 03:20; Admin Dose 1 EA; Start 10/10/18 at 02:00 Insulin Aspart (Novolog Insulin Pen) NOVOLOG *CUSTOM* ALGORITHM Q6H SC Last administered on 10/19/18 03:20; Admin Dose 1 UNIT; Start 10/09/18 at 14:00 Lactobacillus Acidophilus (Florajen3 Capsule) 1 each BID GTB Last administered on 10/19/18 08:32; Admin Dose 1 EACH; Start 10/09/18 at 21:00 Lansoprazole (Prevacid) 30 mg BID@,18 GTB Last administered on 10/19/18 05:12; Admin Dose 30 MG; Start 10/09/18 at 18:00 Levetiracetam (Keppra Liquid) 500 mg BID GTB Last administered on 10/19/18 08:31; Admin Dose 500 MG; Start 10/09/18 at 21:00 Magnesium Oxide (Mag-Ox 400) 400 mg BID GTB Last administered on 10/19/18 08:31; Admin Dose 400 MG; Start 10/09/18 at 21:00 Metoclopramide HCl (Reglan) 10 mg TID IV Last administered on 10/19/18 13:09; Admin Dose 10 MG; Start 10/09/18 at 21:00 Miconazole Nitrate (Miconazole 2% Cr) 1 applic BID TOP Last administered on 10/19/18 08:34; Admin Dose 1 APPLIC; Start 10/09/18 at 21:00 Miconazole Nitrate (Miconazole 2% Cr) 1 applic Q12 PRN TOP rash; Start 10/09/18 at 14:00 Ondansetron HCl (Zofran Inj) 4 mg Q4H PRN IV NAUSEA AND/OR VOMITING Last administered on 10/16/18 21:31; Admin Dose 4 MG; Start 10/09/18 at 14:00 Polyethylene Glycol (Miralax) 17 gm DAILY PRN GTB CONSTIPATION; Start 10/09/18 at 14:00 Senna (Senokot) 2 tab Q8 PRN PO CONSTIPATION; Start 10/09/18 at 14:00 Trimethoprim/ Sulfamethoxazole (Bactrim Susp) 40 ml DAILY GTB Last administered on 10/19/18 08:31; Admin Dose 40 ML; Start 10/10/18 at 09:00 Zolpidem Tartrate (Ambien) 5 mg HS PRN PO INSOMNIA Last administered on 10/17/18 03:39; Admin Dose 5 MG; Start 10/09/18 at 14:00 Miscellaneous Information 1 ea NOTE XX ; Start 10/09/18 at 15:00 Glucose (Glutose) 15 gm Q15M PRN PO DECREASED GLUCOSE; Start 10/09/18 at 15:00 Glucose (Glutose) 22.5 gm Q15M PRN PO DECREASED GLUCOSE; Start 10/09/18 at 15:00 Dextrose (D50w Syringe) 25 ml Q15M PRN IV DECREASED GLUCOSE; Start 10/09/18 at 15:00 Dextrose (D50w Syringe) 50 ml Q15M PRN IV DECREASED GLUCOSE; Start 10/09/18 at 15:00 Glucagon (Glucagen) 1 mg Q15M PRN IM DECREASED GLUCOSE; Start 10/09/18 at 15:00 Glucose (Glutose) 15 gm Q15M PRN BUCCAL DECREASED GLUCOSE; Start 10/09/18 at 15:00 Sodium Chloride 500 ml @ 500 mls/hr Q1H PRN IV BLOOD PRESSURE SUPPORT Last administered on 10/10/18at 07:59; Admin Dose 500 MLS/HR; Start 10/09/18 at 19:30 Albuterol (Ventolin Hfa) 4 puff Q6H RESP THERAPY INH Last administered on 10/19/18 13:29; Admin Dose 4 PUFF; Start 10/10/18 at 02:00 Ipratropium [place] (Atrovent Hfa) 4 puff Q6H RESP THERAPY INH Last administered on 10/19/18 13:29; Admin Dose 4 PUFF; Start 10/10/18 at 02:00 Methylprednisolone Sodium Succinate (Solu-Medrol) 40 mg Q8 IV Last administered on 10/19/18 14:36; Admin Dose 40 MG; Start 10/14/18 at 14:00 Quetiapine Fumarate (Seroquel) 50 mg BID GTB Last administered on 10/19/18 08:31; Admin Dose 50 MG; Start 10/14/18 at 13:30 Lorazepam (Ativan) 1 mg Q4H PRN GTB AGITATION/ANXIETY Last administered on 10/19/18 08:32; Admin Dose 1 MG; Start 10/14/18 at 13:00 Lisinopril (Zestril) 2.5 mg DAILY PO Last administered on 10/18/18 08:28; Admin Dose 2.5 MG; Start 10/15/18 at 09:00; Status Hold Hydromorphone HCl (Dilaudid) 2 mg Q4H PRN PO PAIN LEVEL 4-6 Last administered on 10/19/18 08:01; Admin Dose 2 MG; Start 10/14/18 at 17:30 Linagliptin (Tradjenta) 5 mg DAILY PO Last administered on 10/19/18 08:33; Admin Dose 5 MG; Start 10/16/18 at 10:30 Carvedilol (Coreg) 6.25 mg BID PO Last administered on 10/19/18 08:32; Admin Dose 6.25 MG; Start 10/17/18 at 21:00 Calcium Carbonate (Ca Carbonate) 1,250 mg TID GTB Last administered on 10/19/18 13:09; Admin Dose 1,250 MG; Start 10/17/18 at 14:00 Fentanyl (Duragesic 50 Mcg/Hr Patch) 1 patch Q72H TRANSDERM Last administered on 10/17/18 20:56; Admin Dose 1 PATCH; Start 10/17/18 at 20:30 Calcitriol (Rocaltrol) 0.25 mcg DAILY PO Last administered on 10/19/18 08:32; Admin Dose 0.25 MCG; Start 10/18/18 at 09:00 Lorazepam (Ativan) 1 mg Q6H GTB Last administered on 10/19/18 14:36; Admin Dose 1 MG; Start 10/19/18 at 15:00 CAROLYN LANGLEY Oct 19, 2018 15:26
--- NOTE | 2018-10-19 16:14 | CONS ---
Assessment/Plan Assessment/Plan Hospital Course (Demo Recall) # sepsis, respiratory - recurrent sepsis on 10/08/2018 due to aspiration pneumonia, HCAP - possible aspiration pneumonia, recurrent pneumonia due to citrobacter - acute on chronic hypoxic and hypercarbic respiratory failure - persistent leukocytosis likely due to steroid margination - h/o tracheostomy on 08/26/2018 - h/o "Increased mild left apical pneumothorax" per CXR on 09/19/2018; no pneumot horax mentioned on subsequent CXR - h/o pneumomediastinum - h/o VAT on 08/11/2018 - h/o asthma/COPD exacerbation - h/o acute tracheobronchitis - h/o MAC infection but CT chest did not demonstrate features suggestive of this per chart review - h/o HCAP due to citrobacter, based on resp culture on 09/13/2018 - h/o aspergillus growing out of resp culture per (pulm note by Dr. Lopez) on 07/25/2018 - h/o elevated 1,3 [id number] level = 232 on 08/06/2018 - h/o MSSA septicemia # GI - diarrhea, C diff on 10/09/2018 was negative - h/o HSV esophagitis, took acyclovir x21 days from 08/26/2018 - h/o EGD, esophageal biopsy showed esophageal squamous mucosa showing acute inflammation, granulation tissue, and ulceration consistent with ulcerative esophagitis, rare multinucleated cells with morphology suggestive of vial cytopathic changes, No cardiac mucosa, intestinal metaplasia, dysplasia, or malignancy defined - GERD - PUD # renal/ - Hypokalemia, recurrent - CKD 2 - BPH # cardiac - tachycardia, persistent - ACD - HTN - HLD # endo - T2DM - Hgb A1c 7.2% - secondary adrenal insufficiency; steroid dependent - Hypoparathyroidism - Hypercalcemia - Pamidronate was ordered # neuro - toxic metabolic encephalopathy - Cervical myopathy - Severe cervical spinal cord stenosis with cord compression from C3-C5, s/p laminectomy in ~03/2018 - Chronic pain syndrome - Functional quadriplegia - Seizure d/o # other chronic conditions - RA with chronic steroid dependence - Immunocompromised status - Fibromyalgia rheumatica - DDD - H/o multiple rib fracture - Pt completed: meropenem (09/25/2018-10/02/2018), vancomycin (09/25/18-09/28/18), pip/tazo (10/09/2018-10/15/2018) recommendations - await: pneumocystis DFA - chest CT when Pt's stable for CT - continue Bactrim for pneumocystis PPX - continue to monitor off other systemic antibiotic Consultation Date/Type/Reason Admit Date/Time Oct 09, 2018 at 12:16 [id number] Initial Consult Date 10/12/18 Requesting Provider: NOLA VIDAL MD Date/Time of Note DATE: 10/19/18 TIME: 16:11 Exam/Review of Systems Exam Vitals Vital Signs Date Temp Pulse Resp B/P (MAP) Pulse Ox O2 O2 Flow FiO2 Time Delivery Rate 10/19/18 108 30 96 70 14:53 10/19/18 99/68 (78) Mechanical 13:00 Ventilator Trach Collar 10/19/18 98.3 12:00 Intake and Output 10/18/18 10/18/18 10/19/18 1515:00 23:00 07:00 IntakeIntake Total 840 ml 930 ml 840 ml OutputOutput Total 640 ml 830 ml 490 ml BalanceBalance 200 ml 100 ml 350 ml Constitutional: alert, non-verbal, frail, other (appears uncomfortable) Eyes: EOMI Neck: supple Respiratory: clear to auscultation Cardiovascular: regular rate and rhythm Gastrointestinal: soft Results Result Diagram: 10/19/18 0432 10/19/18 0432 Results 24hrs Laboratory Tests Test 10/18/18 21:12 10/19/18 03:18 10/19/18 04:32 10/19/18 08:38 Bedside Glucose 168 160 139 White Blood Count 21.4 #H Red Blood Count 3.31 L Hemoglobin 9.6 L Hematocrit 31.0 L Mean Corpuscular 93.7 Volume Mean Corpuscular 29.0 Hemoglobin Mean Corpuscular 31.0 L Hemoglobin Concent Red Cell 18.6 H Distribution Width Platelet Count 482 H Mean Platelet 10.6 H Volume Immature 4.100 H Granulocytes % Neutrophils % 83.6 H Lymphocytes % 4.4 L Monocytes % 7.5 Eosinophils % 0.0 Basophils % 0.4 Nucleated Red 0.2 H Blood Cells % Immature 0.880 H Granulocytes # Neutrophils # 17.9 H Lymphocytes # 0.9 Monocytes # 1.6 H Eosinophils # 0.0 Basophils # 0.1 Nucleated Red 0.0 Blood Cells # Sodium Level 134 L Potassium Level 5.5 H Chloride Level 92 L Carbon Dioxide 36 H Level Anion Gap 6 Blood Urea 30 H Nitrogen Creatinine 0.43 L Est Glomerular > 60 Filtrat Rate mL/min Glucose Level 151 Calcium Level 6.2 L Ionized Calcium 0.9 L (Measured) Phosphorus Level 5.7 H Magnesium Level 2.4 Test 10/19/18 09:22 10/19/18 14:37 Blood Gas Specimen Blood arterial Source Arterial Blood 10/19/2018 9:48:18 Date Drawn AM Arterial Blood pH 7.378 (Temp corrected) Arterial Blood 56.6 H pCO2 (Temp correct) Arterial Blood pO2 104.1 H (Temp corrected) Arterial Blood 32.6 H HCO3 Arterial Blood 6.3 H Base Excess Arterial Blood 97.1 Oxygen Saturation [place] Test ACCEPTAB Arterial Blood Gas Left Radial Puncture Site Arterial 0.7 Blood Carboxyhemog lobin Arterial Blood 0.3 Methemoglobin Blood Gas A-a O2 334.2 H Differential Oxyhemoglobin 96.1 Percent Blood Gas 37.0 Temperature Blood Gas 20.0 Respiration Rate Blood Gas Actual 27 Respiration Rate Blood Gas Modality VENT - AC FiO2 70.0 Blood Gas Tidal 400.0 Volume Blood Gas Low PEEP 10.0 Setting Blood Gas Notified TM Whom Blood Gas Notified 10/19/2018 10:03:01 Time AM Bedside Glucose 115 Medications Medication Current Medications Acetaminophen (Tylenol Liquid) 650 mg Q4H PRN GTB MILD PAIN(1-3)OR ELEVATED TEMP Last administered on 10/16/18at 07:52; Admin Dose 650 MG; Start 10/09/18 at 14:00 Al Hydrox/Mg Hydrox/Simethicone (Mag-Al Plus) 15 ml Q6H PRN PO GASTROINTESTINAL UPSET Last administered on 10/17/18at 13:18; Admin Dose 15 ML; Start 10/09/18 at 14:00 Eye Lubricant (Artificial Tears Oph) 1 drop Q6H PRN BOTH EYES DRY EYES; Start 10/09/18 at 14:00 Bisacodyl (Dulcolax Supp) 10 mg DAILY PRN AR CONSTIPATION; Start 10/09/18 at 14:00 Clonidine (Catapres) 0.1 mg DAILY PRN GTB ELEVATED BLOOD PRESSURE; Start 10/09/18 at 14:00 Diltiazem HCl (Cardizem Iv) 5 mg Q4 PRN IV ELEVATED HEART RATE Last administered on 10/18/18 01:09; Admin Dose 5 MG; Start 10/09/18 at 14:00 Diphenhydramine HCl (Benadryl Liquid Cup) 25 mg Q6 PRN GTB ITCHING Last admi nistered on 10/17/18 23:27; Admin Dose 25 MG; Start 10/09/18 at 14:00 Duloxetine HCl (Cymbalta) 30 mg DAILY PO Last administered on 10/19/18 08:32; Admin Dose 30 MG; Start 10/10/18 at 09:00 Epoetin Arpan (Epogen (Esrd)) 10,000 units TuSa@1300 SC Last administered on 10/18/18 13:32; Admin Dose 10,000 UNITS; Start 10/11/18 at 13:00 Gabapentin (Neurontin Liquid) 400 mg Q8 GTB Last administered on 10/19/18 13:09; Admin Dose 400 MG; Start 10/09/18 at 15:30 Hydralazine HCl (Apresoline) 10 mg Q4H PRN IV ELEVATED BLOOD PRESSURE; Start 10/09/18 at 14:00 Hydromorphone HCl (Dilaudid) 4 mg Q4H PRN PO MODERATE PAIN LEVEL 7-10 Last administered on 10/19/18 13:09; Admin Dose 4 MG; Start 10/09/18 at 14:00 Hydroxychloroquine Sulfate (Plaquenil) 200 mg BID PO Last administered on 10/19/18 08:31; Admin Dose 200 MG; Start 10/09/18 at 21:00 Diagnostic Test (Pha) (Accu-Chek) 1 ea 02 XX Last administered on 10/19/18 03:20; Admin Dose 1 EA; Start 10/10/18 at 02:00 Insulin Aspart (Novolog Insulin Pen) NOVOLOG *CUSTOM* ALGORITHM Q6H SC Last administered on 10/19/18 03:20; Admin Dose 1 UNIT; Start 10/09/18 at 14:00 Lactobacillus Acidophilus (Florajen3 Capsule) 1 each BID GTB Last administered on 10/19/18 08:32; Admin Dose 1 EACH; Start 10/09/18 at 21:00 Lansoprazole (Prevacid) 30 mg BID@06,18 GTB Last administered on 10/19/18 05:12; Admin Dose 30 MG; Start 10/09/18 at 18:00 Levetiracetam (Keppra Liquid) 500 mg BID GTB Last administered on 10/19/18 08:31; Admin Dose 500 MG; Start 10/09/18 at 21:00 Magnesium Oxide (Mag-Ox 400) 400 mg BID GTB Last administered on 10/19/18 08:31; Admin Dose 400 MG; Start 10/09/18 at 21:00 Metoclopramide HCl (Reglan) 10 mg TID IV Last administered on 10/19/18 13:09; Admin Dose 10 MG; Start 10/09/18 at 21:00 Miconazole Nitrate (Miconazole 2% Cr) 1 applic BID TOP Last administered on 10/19/18 08:34; Admin Dose 1 APPLIC; Start 10/09/18 at 21:00 Miconazole Nitrate (Miconazole 2% Cr) 1 applic Q12 PRN TOP rash; Start 10/09/18 at 14:00 Ondansetron HCl (Zofran Inj) 4 mg Q4H PRN IV NAUSEA AND/OR VOMITING Last administered on 10/16/18 21:31; Admin Dose 4 MG; Start 10/09/18 at 14:00 Polyethylene Glycol (Miralax) 17 gm DAILY PRN GTB CONSTIPATION; Start 10/09/18 at 14:00 Senna (Senokot) 2 tab Q8 PRN PO CONSTIPATION; Start 10/09/18 at 14:00 Trimethoprim/ Sulfamethoxazole (Bactrim Susp) 40 ml DAILY GTB Last administered on 10/19/18 08:31; Admin Dose 40 ML; Start 10/10/18 at 09:00 Zolpidem Tartrate (Ambien) 5 mg HS PRN PO INSOMNIA Last administered on 10/17/18 03:39; Admin Dose 5 MG; Start 10/09/18 at 14:00 Miscellaneous Information 1 ea NOTE XX ; Start 10/09/18 at 15:00 Glucose (Glutose) 15 gm Q15M PRN PO DECREASED GLUCOSE; Start 10/09/18 at 15:00 Glucose (Glutose) 22.5 gm Q15M PRN PO DECREASED GLUCOSE; Start 10/09/18 at 15:00 Dextrose (D50w Syringe) 25 ml Q15M PRN IV DECREASED GLUCOSE; Start 10/09/18 at 15:00 Dextrose (D50w Syringe) 50 ml Q15M PRN IV DECREASED GLUCOSE; Start 10/09/18 at 15:00 Glucagon (Glucagen) 1 mg Q15M PRN IM DECREASED GLUCOSE; Start 10/09/18 at 15:00 Glucose (Glutose) 15 gm Q15M PRN BUCCAL DECREASED GLUCOSE; Start 10/09/18 at 15:00 Sodium Chloride 500 ml @ 500 mls/hr Q1H PRN IV BLOOD PRESSURE SUPPORT Last ad ministered on 10/10/18 07:59; Admin Dose 500 MLS/HR; Start 10/09/18 at 19:30 Albuterol (Ventolin Hfa) 4 puff Q6H RESP THERAPY INH Last administered on 10/19/18 13:29; Admin Dose 4 PUFF; Start 10/10/18 at 02:00 Ipratropium [place] (Atrovent Hfa) 4 puff Q6H RESP THERAPY INH Last administered on 10/19/18 13:29; Admin Dose 4 PUFF; Start 10/10/18 at 02:00 Methylprednisolone Sodium Succinate (Solu-Medrol) 40 mg Q8 IV Last administered on 10/19/18 14:36; Admin Dose 40 MG; Start 10/14/18 at 14:00 Quetiapine Fumarate (Seroquel) 50 mg BID GTB Last administered on 10/19/18 08:31; Admin Dose 50 MG; Start 10/14/18 at 13:30 Lorazepam (Ativan) 1 mg Q4H PRN GTB AGITATION/ANXIETY Last administered on 08:32; Admin Dose 1 MG; Start 10/14/18 at 13:00 Lisinopril (Zestril) 2.5 mg DAILY PO Last administered on 10/18/18 08:28; Admin Dose 2.5 MG; Start 10/15/18 at 09:00; Status Hold Hydromorphone HCl (Dilaudid) 2 mg Q4H PRN PO PAIN LEVEL 4-6 Last administered on 10/19/18 08:01; Admin Dose 2 MG; Start 10/14/18 at 17:30 Linagliptin (Tradjenta) 5 mg DAILY PO Last administered on 10/19/18 08:33; Admin Dose 5 MG; Start 10/16/18 at 10:30 Carvedilol (Coreg) 6.25 mg BID PO Last administered on 10/19/18 08:32; Admin Dose 6.25 MG; Start 10/17/18 at 21:00 Calcium Carbonate (Ca Carbonate) 1,250 mg TID GTB Last administered on 10/19/18 13:09; Admin Dose 1,250 MG; Start 10/17/18 at 14:00 Fentanyl (Duragesic 50 Mcg/Hr Patch) 1 patch Q72H TRANSDERM Last administered on 10/17/18 20:56; Admin Dose 1 PATCH; Start 10/17/18 at 20:30 Calcitriol (Rocaltrol) 0.25 mcg DAILY PO Last administered on 10/19/18 08:32; Admin Dose 0.25 MCG; Start 10/18/18 at 09:00 Lorazepam (Ativan) 1 mg Q6H GTB Last administered on 10/19/18 14:36; Admin Dose 1 MG; Start 10/19/18 at 15:00 CAMELIA VALENTINE MD Oct 19, 2018 16:14
[2018-10-19] MEDS: ONDANSETRON 4 MG INJ IV PRN (16:37)
--- NOTE | 2018-10-19 17:54 | CONS ---
Assessment/Plan Assessment/Plan Assessment/Plan (Daily) 3 yo male pt in [place] transferred to ICU for increased O2 demands Interval hx: WBC 27.5.->31.8 Stool cx positive for VRE. Pt is on Vanco and followed by ID. Pt states he feels out of breath. No changes in CXR. On 70% FiO2. Down from yesterday. High anxiety. Tolerating tube feeds. Rectal tube. 1. Respiratory failure secondary to pneumonia versus interstitial pneumonitis from rheumatoid arthritis versus mild aspiration. -on Bactrim 2. Severe rheumatoid arthritis. 3. Quadriplegia. 4. Adrenal insufficiency. 5. Gastroparesis. -Reglan, denies nausea 6. Hypothyroidism. 7. Chronic pain syndrome. 8. Hypertension. 9. Diarrhea -VRE in stool -FOB neg 10. Leukocytosis secondary to steroids Swallow eval: Impression: Oropharyngeal dysphagia associated with reduced oropharyngeal strength/coordination, delayed timing of swallowing and reduced coordination of breath with swallow safety impacting swallow safety. Pt is not safe to initiate p.o intake and is at high risk of aspiration. Recommendation: 1. Initiate dysphagia therapy 3-5x per week for 1-2 weeks 2. Keep NPO+PEG tube feeds for primary means of nutrition/hydration/medication delivery 3. Anticipate need for in-line PMV evaluation one respiratory status improves and is stabilized 4. ongoing assessment and BOT and oropharyngeal strengthening exercises, aswell as pt/family education and counseling 5. Anticipate need for MBSS prior to initiation of p.o intake PLAN: ID recommendations Continue present care Nothing by mouth per swallow eval results Continue with tube feeds check residuals q 4 hours Continue Reglan. Aspiration precautions Continue with abx Consultation Date/Type/Reason Admit Date/Time Oct 09, 2018 at 12:16 Initial Consult Date 10/12/18 Requesting Provider: NOLA VIDAL MD Date/Time of Note DATE: 10/19/18 TIME: 17:52 24 HR Interval Summary Free Text/Dictation Denies of abdominal pain no nausea no vomiting. No diarrhea Exam/Review of Systems Exam Vitals Vital Signs Date Temp Pulse Resp B/P (MAP) Pulse Ox O2 O2 Flow FiO2 Time Delivery Rate 10/19/18 80 17:45 10/19/18 111 32 92 16:51 10/19/18 110/73 Mechanical 15:00 (85) Ventilator Trach Collar 10/19/18 98.3 12:00 Intake and Output 10/18/18 10/18/18 10/19/18 1515:00 23:00 07:00 IntakeIntake Total 840 ml 930 ml 840 ml OutputOutput Total 640 ml 830 ml 490 ml BalanceBalance 200 ml 100 ml 350 ml Constitutional: alert, oriented Head: normocephalic, atraumatic ENMT: nl external ears & nose, nl lips & teeth, nl nasal mucosa & septum Neck: supple, non-tender Respiratory: diminished breath sounds Gastrointestinal: soft, nl liver, spleen, non-tender Musculoskeletal: nl extremities to inspection, nl gait and stance Results Result Diagram: 10/19/18 0432 10/19/18 0432 Results 24hrs Laboratory Tests Test 10/18/18 21:12 10/19/18 03:18 10/19/18 04:32 10/19/18 08:38 Bedside Glucose 168 160 139 White Blood Count 21.4 #H Red Blood Count 3.31 L Hemoglobin 9.6 L Hematocrit 31.0 L Mean Corpuscular 93.7 Volume Mean Corpuscular 29.0 Hemoglobin Mean Corpuscular 31.0 L Hemoglobin Concent Red Cell 18.6 H Distribution Width Platelet Count 482 H Mean Platelet 10.6 H Volume Immature 4.100 H Granulocytes % Neutrophils % 83.6 H Lymphocytes % 4.4 L Monocytes % 7.5 Eosinophils % 0.0 Basophils % 0.4 Nucleated Red 0.2 H Blood Cells % Immature 0.880 H Granulocytes # Neutrophils # 17.9 H Lymphocytes # 0.9 Monocytes # 1.6 H Eosinophils # 0.0 Basophils # 0.1 Nucleated Red 0.0 Blood Cells # Sodium Level 134 L Potassium Level 5.5 H Chloride Level 92 L Carbon Dioxide 36 H Level Anion Gap 6 Blood Urea 30 H Nitrogen Creatinine 0.43 L Est Glomerular > 60 Filtrat Rate mL/min Glucose Level 151 Calcium Level 6.2 L Ionized Calcium 0.9 L (Measured) Phosphorus Level 5.7 H Magnesium Level 2.4 Test 10/19/18 09:22 10/19/18 14:37 Blood Gas Specimen Blood arterial Source Arterial Blood 10/19/2018 9:48:18 Date Drawn AM Arterial Blood pH 7.378 (Temp corrected) Arterial Blood 56.6 H pCO2 (Temp correct) Arterial Blood pO2 104.1 H (Temp corrected) Arterial Blood 32.6 H HCO3 Arterial Blood 6.3 H Base Excess Arterial Blood 97.1 Oxygen Saturation [place] Test ACCEPTAB Arterial Blood Gas Left Radial Puncture Site Arterial 0.7 Blood Carboxyhemog lobin Arterial Blood 0.3 Methemoglobin Blood Gas A-a O2 334.2 H Differential Oxyhemoglobin 96.1 Percent Blood Gas 37.0 Temperature Blood Gas 20.0 Respiration Rate Blood Gas Actual 27 Respiration Rate Blood Gas Modality VENT - AC FiO2 70.0 Blood Gas Tidal 400.0 Volume Blood Gas Low PEEP 10.0 Setting Blood Gas Notified TM Whom Blood Gas Notified 10/19/2018 10:03:01 Time AM Bedside Glucose 115 Medications Medication Current Medications Acetaminophen (Tylenol Liquid) 650 mg Q4H PRN GTB MILD PAIN(1-3)OR ELEVATED TEMP Last administered on 10/16/18 07:52; Admin Dose 650 MG; Start 10/09/18 at 14:00 Al Hydrox/Mg Hydrox/Simethicone (Mag-Al Plus) 15 ml Q6H PRN PO GASTROINTESTINAL UPSET Last administered on 10/17/18 13:18; Admin Dose 15 ML; Start 10/09/18 at 14:00 Eye Lubricant (Artificial Tears Oph) 1 drop Q6H PRN BOTH EYES DRY EYES; Start 10/09/18 at 14:00 Bisacodyl (Dulcolax Supp) 10 mg DAILY PRN IN CONSTIPATION; Start 10/09/18 at 14:00 Clonidine (Catapres) 0.1 mg DAILY PRN GTB ELEVATED BLOOD PRESSURE; Start 10/09/18 at 14:00 Diltiazem HCl (Cardizem Iv) 5 mg Q4 PRN IV ELEVATED HEART RATE Last administered on 10/18/18 01:09; Admin Dose 5 MG; Start 10/09/18 at 14:00 Diphenhydramine HCl (Benadryl Liquid Cup) 25 mg Q6 PRN GTB ITCHING Last administered on 10/17/18 23:27; Admin Dose 25 MG; Start 10/09/18 at 14:00 Duloxetine HCl (Cymbalta) 30 mg DAILY PO Last administered on 10/19/18 08:32; Admin Dose 30 MG; Start 10/10/18 at 09:00 Epoetin Arpan (Epogen (Esrd)) 10,000 units TuSa@1300 SC Last administered on 13:32; Admin Dose 10,000 UNITS; Start 10/11/18 at 13:00 Gabapentin (Neurontin Liquid) 400 mg Q8 GTB Last administered on 10/19/18 13:09; Admin Dose 400 MG; Start 10/09/18 at 15:30 Hydralazine HCl (Apresoline) 10 mg Q4H PRN IV ELEVATED BLOOD PRESSURE; Start 10/09/18 at 14:00 Hydromorphone HCl (Dilaudid) 4 mg Q4H PRN PO MODERATE PAIN LEVEL 7-10 Last administered on 10/19/18 13:09; Admin Dose 4 MG; Start 10/09/18 at 14:00 Hydroxychloroquine Sulfate (Plaquenil) 200 mg BID PO Last administered on 10/19/18 08:31; Admin Dose 200 MG; Start 10/09/18 at 21:00 Diagnostic Test (Pha) (Accu-Chek) 1 ea 02 XX Last administered on 10/19/18 03:20; Admin Dose 1 EA; Start 10/10/18 at 02:00 Insulin Aspart (Novolog Insulin Pen) NOVOLOG *CUSTOM* ALGORITHM Q6H SC Last administered on 10/19/18 03:20; Admin Dose 1 UNIT; Start 10/09/18 at 14:00 Lactobacillus Acidophilus (Florajen3 Capsule) 1 each BID GTB Last administered on 10/19/18 08:32; Admin Dose 1 EACH; Start 10/09/18 at 21:00 Lansoprazole (Prevacid) 30 mg BID@06,18 GTB Last administered on 10/19/18 17:35; Admin Dose 30 MG; Start 10/09/18 at 18:00 Levetiracetam (Keppra Liquid) 500 mg BID GTB Last administered on 10/19/18 08:31; Admin Dose 500 MG; Start 10/09/18 at 21:00 Magnesium Oxide (Mag-Ox 400) 400 mg BID GTB Last administered on 10/19/18 08:31; Admin Dose 400 MG; Start 10/09/18 at 21:00 Metoclopramide HCl (Reglan) 10 mg TID IV Last administered on 10/19/18 13:09; Admin Dose 10 MG; Start 10/09/18 at 21:00 Miconazole Nitrate (Miconazole 2% Cr) 1 applic BID TOP Last administered on 10/19/18at 08:34; Admin Dose 1 APPLIC; Start 10/09/18 at 21:00 Miconazole Nitrate (Miconazole 2% Cr) 1 applic Q12 PRN TOP rash; Start 10/09/18 at 14:00 Ondansetron HCl (Zofran Inj) 4 mg Q4H PRN IV NAUSEA AND/OR VOMITING Last administered on 10/19/18at 16:37; Admin Dose 4 MG; Start 10/09/18 at 14:00 Polyethylene Glycol (Miralax) 17 gm DAILY PRN GTB CONSTIPATION; Start 10/09/18 at 14:00 Senna (Senokot) 2 tab Q8 PRN PO CONSTIPATION; Start 10/09/18 at 14:00 Trimethoprim/ Sulfamethoxazole (Bactrim Susp) 40 ml DAILY GTB Last administered on 10/19/18at 08:31; Admin Dose 40 ML; Start 10/10/18 at 09:00 Zolpidem Tartrate (Ambien) 5 mg HS PRN PO INSOMNIA Last administered on 10/17/18at 03:39; Admin Dose 5 MG; Start 10/09/18 at 14:00 Miscellaneous Information 1 ea NOTE XX ; Start 10/09/18 at 15:00 Glucose (Glutose) 15 gm Q15M PRN PO DECREASED GLUCOSE; Start 10/09/18 at 15:00 Glucose (Glutose) 22.5 gm Q15M PRN PO DECREASED GLUCOSE; Start 10/09/18 at 15:00 Dextrose (D50w Syringe) 25 ml Q15M PRN IV DECREASED GLUCOSE; Start 10/09/18 at 15:00 Dextrose (D50w Syringe) 50 ml Q15M PRN IV DECREASED GLUCOSE; Start 10/09/18 at 15:00 Glucagon (Glucagen) 1 mg Q15M PRN IM DECREASED GLUCOSE; Start 10/09/18 at 15:00 Glucose (Glutose) 15 gm Q15M PRN BUCCAL DECREASED GLUCOSE; Start 10/09/18 at 15:00 Sodium Chloride 500 ml @ 500 mls/hr Q1H PRN IV BLOOD PRESSURE SUPPORT Last administered on 10/10/18at 07:59; Admin Dose 500 MLS/HR; Start 10/09/18 at 19:30 Albuterol (Ventolin Hfa) 4 puff Q6H RESP THERAPY INH Last administered on 10/19/18 13:29; Admin Dose 4 PUFF; Start 10/10/18 at 02:00 Ipratropium [place] (Atrovent Hfa) 4 puff Q6H RESP THERAPY INH Last administered on 10/19/18 13:29; Admin Dose 4 PUFF; Start 10/10/18 at 02:00 Methylprednisolone Sodium Succinate (Solu-Medrol) 40 mg Q8 IV Last administered on 10/19/18 14:36; Admin Dose 40 MG; Start 10/14/18 at 14:00 Quetiapine Fumarate (Seroquel) 50 mg BID GTB Last administered on 10/19/18 08:31; Admin Dose 50 MG; Start 10/14/18 at 13:30 Lorazepam (Ativan) 1 mg Q4H PRN GTB AGITATION/ANXIETY Last administered on 10/19/18 17:35; Admin Dose 1 MG; Start 10/14/18 at 13:00 Lisinopril (Zestril) 2.5 mg DAILY PO Last administered on 10/18/18 08:28; Admin Dose 2.5 MG; Start 10/15/18 at 09:00; Status Hold Hydromorphone HCl (Dilaudid) 2 mg Q4H PRN PO PAIN LEVEL 4-6 Last administered on 10/19/18 08:01; Admin Dose 2 MG; Start 10/14/18 at 17:30 Linagliptin (Tradjenta) 5 mg DAILY PO Last administered on 10/19/18 08:33; Admin Dose 5 MG; Start 10/16/18 at 10:30 Carvedilol (Coreg) 6.25 mg BID PO Last administered on 10/19/18 08:32; Admin Dose 6.25 MG; Start 10/17/18 at 21:00 Calcium Carbonate (Ca Carbonate) 1,250 mg TID GTB Last administered on 10/19/18 13:09; Admin Dose 1,250 MG; Start 10/17/18 at 14:00 Fentanyl (Duragesic 50 Mcg/Hr Patch) 1 patch Q72H TRANSDERM Last administered on 10/17/18 20:56; Admin Dose 1 PATCH; Start 10/17/18 at 20:30 Calcitriol (Rocaltrol) 0.25 mcg DAILY PO Last administered on 10/19/18at 08:32; Admin Dose 0.25 MCG; Start 10/18/18 at 09:00 Lorazepam (Ativan) 1 mg Q6H GTB Last administered on 10/19/18at 14:36; Admin Dose 1 MG; Start 10/19/18 at 15:00 BHAVIK RUBIO MD Oct 19, 2018 17:54
--- NOTE | 2018-10-19 17:58 | CONS ---
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 Status: Chronic Comment: Stable but on pulse dose therapy at this time. (2) Diabetes mellitus type 2 in nonobese Status: Chronic Comment: Adequate control (3) Essential hypertension Status: Chronic Comment: Adequate control (4) Hypercalcemia Status: Resolved Comment: Patient's hypocalcemia persists. We will go ahead and correct with calcitriol at a much lower dose than he had been on at [place]. Please note he was on a dosage of Alvarez at 2 mcg twice daily of calcitriol which is significantly impressively high Consultation Date/Type/Reason Admit Date/Time Oct 09, 2018 at 12:16 Initial Consult Date 10/12/18 Type of Consult Endocrinology Reason for Consultation Hypercalcemia treated with single dose of 30 mg of pamidronate now with some over swelling hypocalcemia mild; adrenal insufficiency iatrogenic; diabetes mellitus type 2 Requesting Provider: NOLA VIDAL MD Date/Time of Note DATE: 10/19/18 TIME: 17:57 24 HR Interval Summary Constitutional: no complaints Detailed Summary Cardiovascular: no complaints Endocrine: no complaints Exam/Review of Systems Exam Vitals Vital Signs Date Temp Pulse Resp B/P (MAP) Pulse Ox O2 O2 Flow FiO2 Time Delivery Rate 10/19/18 80 17:45 10/19/18 111 32 92 16:51 10/19/18 110/73 Mechanical 15:00 (85) Ventilator Trach Collar 10/19/18 98.3 12:00 Intake and Output 10/18/18 10/18/18 10/19/18 1515:00 23:00 07:00 IntakeIntake Total 840 ml 930 ml 840 ml OutputOutput Total 640 ml 830 ml 490 ml BalanceBalance 200 ml 100 ml 350 ml Exam No change in examination Results Result Diagram: 10/19/18 0432 10/19/18 0432 Results 24hrs Laboratory Tests Test 10/18/18 21:12 10/19/18 03:18 10/19/18 04:32 10/19/18 08:38 Bedside Glucose 168 160 139 White Blood Count 21.4 #H Red Blood Count 3.31 L Hemoglobin 9.6 L Hematocrit 31.0 L Mean Corpuscular 93.7 Volume Mean Corpuscular 29.0 Hemoglobin Mean Corpuscular 31.0 L Hemoglobin Concent Red Cell 18.6 H Distribution Width Platelet Count 482 H Mean Platelet 10.6 H Volume Immature 4.100 H Granulocytes % Neutrophils % 83.6 H Lymphocytes % 4.4 L Monocytes % 7.5 Eosinophils % 0.0 Basophils % 0.4 Nucleated Red 0.2 H Blood Cells % Immature 0.880 H Granulocytes # Neutrophils # 17.9 H Lymphocytes # 0.9 Monocytes # 1.6 H Eosinophils # 0.0 Basophils # 0.1 Nucleated Red 0.0 Blood Cells # Sodium Level 134 L Potassium Level 5.5 H Chloride Level 92 L Carbon Dioxide 36 H Level Anion Gap 6 Blood Urea 30 H Nitrogen Creatinine 0.43 L Est Glomerular > 60 Filtrat Rate mL/min Glucose Level 151 Calcium Level 6.2 L Ionized Calcium 0.9 L (Measured) Phosphorus Level 5.7 H Magnesium Level 2.4 Test 10/19/18 09:22 10/19/18 14:37 Blood Gas Specimen Blood arterial Source Arterial Blood 10/19/2018 9:48:18 Date Drawn AM Arterial Blood pH 7.378 (Temp corrected) Arterial Blood 56.6 H pCO2 (Temp correct) Arterial Blood pO2 104.1 H (Temp corrected) Arterial Blood 32.6 H HCO3 Arterial Blood 6.3 H Base Excess Arterial Blood 97.1 Oxygen Saturation [place] Test ACCEPTAB Arterial Blood Gas Left Radial Puncture Site Arterial 0.7 Blood Carboxyhemog lobin Arterial Blood 0.3 Methemoglobin Blood Gas A-a O2 334.2 H Differential Oxyhemoglobin 96.1 Percent Blood Gas 37.0 Temperature Blood Gas 20.0 Respiration Rate Blood Gas Actual 27 Respiration Rate Blood Gas Modality VENT - AC FiO2 70.0 Blood Gas Tidal 400.0 Volume Blood Gas Low PEEP 10.0 Setting Blood Gas Notified TM Whom Blood Gas Notified 10/19/2018 10:03:01 Time AM Bedside Glucose 115 Medications Medication Current Medications Acetaminophen (Tylenol Liquid) 650 mg Q4H PRN GTB MILD PAIN(1-3)OR ELEVATED TEMP Last administered on 10/16/18at 07:52; Admin Dose 650 MG; Start 10/09/18 at 14:00 Al Hydrox/Mg Hydrox/Simethicone (Mag-Al Plus) 15 ml Q6H PRN PO GASTROINTESTINAL UPSET Last administered on 10/17/18at 13:18; Admin Dose 15 ML; Start 10/09/18 at 14:00 Eye Lubricant (Artificial Tears Oph) 1 drop Q6H PRN BOTH EYES DRY EYES; Start 10/09/18 at 14:00 Bisacodyl (Dulcolax Supp) 10 mg DAILY PRN [place] CONSTIPATION; Start 10/09/18 at 14:00 Clonidine (Catapres) 0.1 mg DAILY PRN GTB ELEVATED BLOOD PRESSURE; Start 10/09/18 at 14:00 Diltiazem HCl (Cardizem Iv) 5 mg Q4 PRN IV ELEVATED HEART RATE Last administered on 10/18/18 01:09; Admin Dose 5 MG; Start 10/09/18 at 14:00 Diphenhydramine HCl (Benadryl Liquid Cup) 25 mg Q6 PRN GTB ITCHING Last administered on 10/17/18 23:27; Admin Dose 25 MG; Start 10/09/18 at 14:00 Duloxetine HCl (Cymbalta) 30 mg DAILY PO Last administered on 10/19/18 08:32; Admin Dose 30 MG; Start 10/10/18 at 09:00 Epoetin Arpan (Epogen (Esrd)) 10,000 units TuSa@1300 SC Last administered on 10/18/18 13:32; Admin Dose 10,000 UNITS; Start 10/11/18 at 13:00 Gabapentin (Neurontin Liquid) 400 mg Q8 GTB Last administered on 10/19/18 13:09; Admin Dose 400 MG; Start 10/09/18 at 15:30 Hydralazine HCl (Apresoline) 10 mg Q4H PRN IV ELEVATED BLOOD PRESSURE; Start 10/09/18 at 14:00 Hydromorphone HCl (Dilaudid) 4 mg Q4H PRN PO MODERATE PAIN LEVEL 7-10 Last administered on 10/19/18 13:09; Admin Dose 4 MG; Start 10/09/18 at 14:00 Hydroxychloroquine Sulfate (Plaquenil) 200 mg BID PO Last administered on 10/19/18 08:31; Admin Dose 200 MG; Start 10/09/18 at 21:00 Diagnostic Test (Pha) (Accu-Chek) 1 ea 02 XX Last administered on 10/19/18 03:20; Admin Dose 1 EA; Start 10/10/18 at 02:00 Insulin Aspart (Novolog Insulin Pen) NOVOLOG *CUSTOM* ALGORITHM Q6H SC Last administered on 10/19/18 03:20; Admin Dose 1 UNIT; Start 10/09/18 at 14:00 Lactobacillus Acidophilus (Florajen3 Capsule) 1 each BID GTB Last administered on 10/19/18 08:32; Admin Dose 1 EACH; Start 10/09/18 at 21:00 Lansoprazole (Prevacid) 30 mg BID@06,18 GTB Last administered on 10/19/18 17:35; Admin Dose 30 MG; Start 10/09/18 at 18:00 Levetiracetam (Keppra Liquid) 500 mg BID GTB Last administered on 10/19/18 08:31; Admin Dose 500 MG; Start 10/09/18 at 21:00 Magnesium Oxide (Mag-Ox 400) 400 mg BID GTB Last administered on 10/19/18 08:31; Admin Dose 400 MG; Start 10/09/18 at 21:00 Metoclopramide HCl (Reglan) 10 mg TID IV Last administered on 10/19/18 13:09; Admin Dose 10 MG; Start 10/09/18 at 21:00 Miconazole Nitrate (Miconazole 2% Cr) 1 applic BID TOP Last administered on 10/19/18 08:34; Admin Dose 1 APPLIC; Start 10/09/18 at 21:00 Miconazole Nitrate (Miconazole 2% Cr) 1 applic Q12 PRN TOP rash; Start 10/09/18 at 14:00 Ondansetron HCl (Zofran Inj) 4 mg Q4H PRN IV NAUSEA AND/OR VOMITING Last administered on 10/19/18 16:37; Admin Dose 4 MG; Start 10/09/18 at 14:00 Polyethylene Glycol (Miralax) 17 gm DAILY PRN GTB CONSTIPATION; Start 10/09/18 at 14:00 Senna (Senokot) 2 tab Q8 PRN PO CONSTIPATION; Start 10/09/18 at 14:00 Trimethoprim/ Sulfamethoxazole (Bactrim Susp) 40 ml DAILY GTB Last administered on 10/19/18 08:31; Admin Dose 40 ML; Start 10/10/18 at 09:00 Zolpidem Tartrate (Ambien) 5 mg HS PRN PO INSOMNIA Last administered on 9at 03:39; Admin Dose 5 MG; Start 10/09/18 at 14:00 Miscellaneous Information 1 ea NOTE XX ; Start 10/09/18 at 15:00 Glucose (Glutose) 15 gm Q15M PRN PO DECREASED GLUCOSE; Start 10/09/18 at 15:00 Glucose (Glutose) 22.5 gm Q15M PRN PO DECREASED GLUCOSE; Start 10/09/18 at 15:00 Dextrose (D50w Syringe) 25 ml Q15M PRN IV DECREASED GLUCOSE; Start 10/09/18 at 15:00 Dextrose (D50w Syringe) 50 ml Q15M PRN IV DECREASED GLUCOSE; Start 10/09/18 at 15:00 Glucagon (Glucagen) 1 mg Q15M PRN IM DECREASED GLUCOSE; Start 10/09/18 at 15:00 Glucose (Glutose) 15 gm Q15M PRN BUCCAL DECREASED GLUCOSE; Start 10/09/18 at 15:00 Sodium Chloride 500 ml @ 500 mls/hr Q1H PRN IV BLOOD PRESSURE SUPPORT Last administered on 10/10/18 07:59; Admin Dose 500 MLS/HR; Start 10/09/18 at 19:30 Albuterol (Ventolin Hfa) 4 puff Q6H RESP THERAPY INH Last administered on 10/19/18 13:29; Admin Dose 4 PUFF; Start 10/10/18 at 02:00 Ipratropium [place] (Atrovent Hfa) 4 puff Q6H RESP THERAPY INH Last administered on 10/19/18 13:29; Admin Dose 4 PUFF; Start 10/10/18 at 02:00 Methylprednisolone Sodium Succinate (Solu-Medrol) 40 mg Q8 IV Last administered on 10/19/18 14:36; Admin Dose 40 MG; Start 10/14/18 at 14:00 Quetiapine Fumarate (Seroquel) 50 mg BID GTB Last administered on 10/19/18 08:31; Admin Dose 50 MG; Start 10/14/18 at 13:30 Lorazepam (Ativan) 1 mg Q4H PRN GTB AGITATION/ANXIETY Last administered on 10/19/18 17:35; Admin Dose 1 MG; Start 10/14/18 at 13:00 Lisinopril (Zestril) 2.5 mg DAILY PO Last administered on 10/18/18 08:28; Admin Dose 2.5 MG; Start 10/15/18 at 09:00; Status Hold Hydromorphone HCl (Dilaudid) 2 mg Q4H PRN PO PAIN LEVEL 4-6 Last administered on 10/19/18 08:01; Admin Dose 2 MG; Start 10/14/18 at 17:30 Linagliptin (Tradjenta) 5 mg DAILY PO Last administered on 10/19/18 08:33; Admin Dose 5 MG; Start 10/16/18 at 10:30 Carvedilol (Coreg) 6.25 mg BID PO Last administered on 10/19/18 08:32; Admin Dose 6.25 MG; Start 10/17/18 at 21:00 Calcium Carbonate (Ca Carbonate) 1,250 mg TID GTB Last administered on 10/19/18 13:09; Admin Dose 1,250 MG; Start 10/17/18 at 14:00 Fentanyl (Duragesic 50 Mcg/Hr Patch) 1 patch Q72H TRANSDERM Last administered on 10/17/18 20:56; Admin Dose 1 PATCH; Start 10/17/18 at 20:30 Calcitriol (Rocaltrol) 0.25 mcg DAILY PO Last administered on 10/19/18 08:32; Admin Dose 0.25 MCG; Start 10/18/18 at 09:00 Lorazepam (Ativan) 1 mg Q6H GTB Last administered on 10/19/18 14:36; Admin Dose 1 MG; Start 10/19/18 at 15:00 KEV ISSA MD Oct 19, 2018 17:58
[2018-10-20] VITALS (35 sets, daily range): BP systolic 93–140; BP diastolic 61–97; PULSE 97–118; RESP 19–38
[2018-10-20] MEDS: ALBUTEROL HFA 8 GM INHALER INH SCH ×4 (01:54→19:43)
[2018-10-20] MEDS: IPRATROPIUM (HFA) 12.9 GM INHALER INH SCH ×4 (01:54→19:43)
[2018-10-20] MEDS: ACCU-CHEK XX SCH (02:03)
[2018-10-20] MEDS: HYDROmorphONE 2 MG TAB PO PRN ×4 (02:03→22:32)
[2018-10-20] MEDS: INSULIN ASPART [NOVOLOG] 3 ML PEN SC SCH ×4 (02:11→20:47)
[2018-10-20] MEDS: ZOLPIDEM 5 MG TAB PO PRN (03:20)
[2018-10-20] MEDS: LORAZEPAM 1 MG TAB GTB SCH ×4 (03:20→20:52)
[2018-10-20] MEDS: LANSOPRAZOLE 30 MG CAP GTB SCH ×2 (05:31→17:27)
[2018-10-20] MEDS: METHYLPREDNISOLONE 40 MG INJ IV SCH ×3 (05:31→22:20)
[2018-10-20] MEDS: GABAPENTIN (50 MG/ML PO SYG) GTB SCH ×3 (05:31→21:03)
[2018-10-20] MEDS: CALCITRIOL 0.25 MCG CAP PO SCH ×2 (08:08→20:52)
[2018-10-20] MEDS: HYDROXYCHLOROQUINE 200 MG TAB PO SCH ×2 (08:10→20:51)
[2018-10-20] MEDS: QUETIAPINE 25 MG TAB GTB SCH ×2 (08:10→20:51)
[2018-10-20] MEDS: MAGNESIUM OXIDE 400 MG TAB GTB SCH ×2 (08:10→20:52)
[2018-10-20] MEDS: LEVETIRACETAM (100 MG/ML) 5ML CUP GTB SCH ×2 (08:12→20:52)
[2018-10-20] MEDS: DULOXETINE 30 MG CAP DR PO SCH (08:12)
[2018-10-20] MEDS: CA CARBONATE (250 MG/ML) 5ML CUP GTB SCH ×3 (08:13→20:52)
[2018-10-20] MEDS: TRIMETHOPRIM/SULFAMETHOX (PO SYG) GTB SCH (08:13)
[2018-10-20] MEDS: METOCLOPRAMIDE 10 MG INJ IV SCH ×3 (08:14→20:52)
[2018-10-20] MEDS: L ACIDOPHIL/B LACTIS/B LONGUM CAPSULE GTB SCH ×2 (08:15→20:51)
[2018-10-20] MEDS: MICONAZOLE 2% 30 GM CR TOP SCH ×2 (08:16→21:04)
[2018-10-20] MEDS: BALSAM PERU/CASTOR OIL 60 GM TUBE TOP SCH ×2 (08:16→21:04)
[2018-10-20] MEDS: LINAGLIPTIN 5 MG TABLET PO SCH (08:20)
--- NOTE | 2018-10-20 09:02 | PN ---
DATE: 10/20/2018 SUBJECTIVE: The patient is stable overnight. No fevers, chills, nausea, or vomiting. OBJECTIVE: VITAL SIGNS: Blood pressure is 105/66, respirations 21, pulse 101, temperature 98.2. HEENT: Head is normocephalic. NECK: Supple. HEART: Regular rate. LUNGS: Show diminished breath sounds at the base. ABDOMEN: Soft, nontender to palpation. No rebound or guarding. EXTREMITIES: Negative for clubbing, cyanosis, no edema. DERMATOLOGIC: No rashes. MUSCULOSKELETAL: No joint effusion. NEUROLOGIC: No change in exam. MEDICATIONS: The patient's medications have been reviewed. LABORATORY DATA: Shows a white count 17.4, hemoglobin 9.7, platelet count is 457. Sodium 133, potas sium 4.7, chloride 90, BUN 30, creatinine 0.50, calcium 5.9, phosphorus 5.9. ASSESSMENT AND PLAN: 1. Hyperkalemia. Etiology is likely multifactorial secondary to Bactrim effect, OLAMIDE inhibitor. The patient's OLAMIDE inhibitor was held. Tube feeding was changed to [employer], low potassium tube feedin g. Potassium levels have improved. We will continue to monitor. 2. Mild hypernatremia. Etiology is multifactorial. We will decrease free water flushes, continue t o monitor. 3. Nonoliguric acute kidney injury, etiology is secondary to hemodynamics. Renal function has impro lori. Continue to monitor. 4. Mineral bone disorder. The patient was hypocalcemic, status post pamidronate at [facility]. The pat ient currently is hypocalcemic on vitamin D analogs and calcium carbonate. We will continue. 5. Ventilator-dependent respiratory failure. Vent settings and ABG was reviewed. Continue to monit or. 6. Adrenal insufficiency. Continue Cortef. Follow up with endocrinology. 7. Dysphagia. Continue tube feeding. 8. Quadriplegia. Continue to monitor. 9. Sepsis secondary to pneumonia. The patient is completing antibiotic course. 10. Hypertension. The patient is currently normotensive to hypotensive. Continue to monitor, place parameters on blood pressure medications. 11. Tachyarrhythmia. Continue current medical management. 12. Chronic pain syndrome. Continue current pain regimen. 13. Seizure disorder. Dictated By: UNA HONG/EFREN Conf#: [id number] DID#: [id number] CC: NOLA VIDAL MD; DALTON DURBIN MD;*End*
--- NOTE | 2018-10-20 09:34 | CONS ---
Assessment/Plan Assessment/Plan Assessment/Plan (Daily) Ventilator setting; AC of 20, tidal volume 400, PEEP of 5, 80% FiO2. Assessment recommendations; 1. Patient with a history of VD RF and ARDS due to his history of severe bilateral pneumonia admitted to ICU because of persistent hypoxemia and possibly superimposed pneumonia. Patient now off intravenous antibiotics and maintained on enteral Bactrim as PCP prophylaxis. 2. Stable seizure disorder. 3. History of VATs. 4. History of Aspergillus cultured from sputum in July of last year. 5. Incomplete quadriplegia. Continue current supportive care. Wean down FiO2 as tolerated. Prognosis is poor. Consultation Date/Type/Reason Admit Date/Time Oct 09, 2018 at 12:16 Initial Consult Date 10/12/18 Type of Consult Pulmonary/critical care Patient's condition is stable. Remains completely awake and alert. Has ivette ined hemodynamically stable. Patient also has been switched over to volume control ventilation from pressure-controlled mode. General exam; middle-aged male, on ventilator via tracheostomy, awake and alert. Watching television. Currently in no distress. Area Requesting Provider: NOLA VIDAL MD Date/Time of Note DATE: 10/20/18 TIME: 09:31 24 HR Interval Summary Free Text/Dictation Patient's condition remains critical but stable. Patient has remained hemodynamically stable. Although still requiring very high FiO2. General exam; middle-aged male, on ventilator via tracheostomy, awake and alert. Currently no distress. Exam/Review of Systems Exam Vitals Vital Signs Date Temp Pulse Resp B/P (MAP) Pulse Ox O2 O2 Flow FiO2 Time Delivery Rate 10/20/18 101 21 105/66 99 Mechanical 07:00 (79) Ventilator Trach Collar 10/20/18 80 05:37 10/20/18 98.2 04:00 Intake and Output 10/19/18 10/19/18 10/20/18 1515:00 23:00 07:00 IntakeIntake Total 660 ml 570 ml 520 ml OutputOutput Total 825 ml 1075 ml 300 ml BalanceBalance -165 ml -505 ml 220 ml Exam HEENT exam; supple neck, no JVD. No lymphadenopathy. Midline trachea. No thyromegaly. Patient has a tracheostomy in place. Patient is edentulous. No neck masses. Chest exam; diminished breath sounds throughout. S1-S2 audible, no murmurs. Regular rhythm. Abdomen exam; soft, G-tube in place. No organomegaly. Bowel sounds audible. Extremity exam; no peripheral edema clubbing. WILDLIFE ECOLOGIST exam; patient has incomplete stable quadriplegia with inability to move right upper extremity to some extent. Results Result Diagram: 10/20/18 0501 10/20/18 0501 Results 24hrs Laboratory Tests Test 10/19/18 14:37 10/19/18 20:24 10/20/18 02:07 10/20/18 05:01 Bedside Glucose 115 184 178 White Blood Count 17.4 H Red Blood Count 3.41 L Hemoglobin 9.7 L Hematocrit 31.4 L Mean Corpuscular Volume 92.1 Mean Corpuscular 28.4 L Hemoglobin Mean Corpuscular 30.9 L Hemoglobin Concent Red Cell Distribution 18.6 H Width Platelet Count 457 H Mean Platelet Volume 10.9 H Immature Granulocytes % 4.300 H Neutrophils % 83.0 H Lymphocytes % 4.7 L Monocytes % 7.8 Eosinophils % 0.0 Basophils % 0.2 Nucleated Red Blood 0.0 Cells % Immature Granulocytes # 0.750 H Neutrophils # 14.4 H Lymphocytes # 0.8 Monocytes # 1.4 H Eosinophils # 0.0 Basophils # 0.0 Nucleated Red Blood 0.0 Cells # Sodium Level 133 L Potassium Level 4.7 Chloride Level 90 L Carbon Dioxide Level 37 H Anion Gap 6 Blood Urea Nitrogen 30 H Creatinine 0.50 L Est Glomerular Filtrat > 60 Rate mL/min Glucose Level 149 Calcium Level 5.9 *L Phosphorus Level 5.9 H Magnesium Level 1.7 Test 10/20/18 08:20 Bedside Glucose 184 Medications Medication Current Medications Acetaminophen (Tylenol Liquid) 650 mg Q4H PRN GTB MILD PAIN(1-3)OR ELEVATED TEMP Last administered on 10/16/18at 07:52; Admin Dose 650 MG; Start 10/09/18 at 14:00 Al Hydrox/Mg Hydrox/Simethicone (Mag-Al Plus) 15 ml Q6H PRN PO GASTROINTESTINAL UPSET Last administered on 10/17/18at 13:18; Admin Dose 15 ML; Start 10/09/18 at 14:00 Eye Lubricant (Artificial Tears Oph) 1 drop Q6H PRN BOTH EYES DRY EYES; Start 10/09/18 at 14:00 Bisacodyl (Dulcolax Supp) 10 mg DAILY PRN [place] CONSTIPATION; Start 10/09/18 at 14:00 Clonidine (Catapres) 0.1 mg DAILY PRN GTB ELEVATED BLOOD PRESSURE; Start 10/09/18 at 14:00 Diltiazem HCl (Cardizem Iv) 5 mg Q4 PRN IV ELEVATED HEART RATE Last administered on 10/18/18 01:09; Admin Dose 5 MG; Start 10/09/18 at 14:00 Diphenhydramine HCl (Benadryl Liquid Cup) 25 mg Q6 PRN GTB ITCHING Last administered on 10/17/18 23:27; Admin Dose 25 MG; Start 10/09/18 at 14:00 Duloxetine HCl (Cymbalta) 30 mg DAILY PO Last administered on 10/20/18 08:12; Admin Dose 30 MG; Start 10/10/18 at 09:00 Epoetin Arpan (Epogen (Esrd)) 10,000 units TuSa@1300 SC Last administered on 10/18/18 13:32; Admin Dose 10,000 UNITS; Start 10/11/18 at 13:00 Gabapentin (Neurontin Liquid) 400 mg Q8 GTB Last administered on 10/20/18 05:31; Admin Dose 400 MG; Start 10/09/18 at 15:30 Hydralazine HCl (Apresoline) 10 mg Q4H PRN IV ELEVATED BLOOD PRESSURE; Start 10/09/18 at 14:00 Hydromorphone HCl (Dilaudid) 4 mg Q4H PRN PO MODERATE PAIN LEVEL 7-10 Last adm inistered on 10/20/18 02:03; Admin Dose 4 MG; Start 10/09/18 at 14:00 Hydroxychloroquine Sulfate (Plaquenil) 200 mg BID PO Last administered on 10/20/18 08:10; Admin Dose 200 MG; Start 10/09/18 at 21:00 Diagnostic Test (Pha) (Accu-Chek) 1 ea 02 XX Last administered on 10/20/18 02:03; Admin Dose 1 EA; Start 10/10/18 at 02:00 Insulin Aspart (Novolog Insulin Pen) NOVOLOG *CUSTOM* ALGORITHM Q6H SC Last administered on 10/20/18 08:28; Admin Dose 1 UNIT; Start 10/09/18 at 14:00 Lactobacillus Acidophilus (Florajen3 Capsule) 1 each BID GTB Last administered on 10/20/18 08:15; Admin Dose 1 EACH; Start 10/09/18 at 21:00 Lansoprazole (Prevacid) 30 mg BID@06,18 GTB Last administered on 10/20/18 05: 31; Admin Dose 30 MG; Start 10/09/18 at 18:00 Levetiracetam (Keppra Liquid) 500 mg BID GTB Last administered on 10/20/18 08:12; Admin Dose 500 MG; Start 10/09/18 at 21:00 Magnesium Oxide (Mag-Ox 400) 400 mg BID GTB Last administered on 10/20/18 08:10; Admin Dose 400 MG; Start 10/09/18 at 21:00 Metoclopramide HCl (Reglan) 10 mg TID IV Last administered on 10/20/18 08:14; Admin Dose 10 MG; Start 10/09/18 at 21:00 Miconazole Nitrate (Miconazole 2% Cr) 1 applic BID TOP Last administered on 10/20/18 08:16; Admin Dose 1 APPLIC; Start 10/09/18 at 21:00 Miconazole Nitrate (Miconazole 2% Cr) 1 applic Q12 PRN TOP rash; Start 10/09/18 at 14:00 Ondansetron HCl (Zofran Inj) 4 mg Q4H PRN IV NAUSEA AND/OR VOMITING Last administered on 10/19/18 16:37; Admin Dose 4 MG; Start 10/09/18 at 14:00 Polyethylene Glycol (Miralax) 17 gm DAILY PRN GTB CONSTIPATION; Start 10/09/18 at 14:00 Senna (Senokot) 2 tab Q8 PRN PO CONSTIPATION; Start 10/09/18 at 14:00 Trimethoprim/ Sulfamethoxazole (Bactrim Susp) 40 ml DAILY GTB Last administered on 10/20/18 08:13; Admin Dose 40 ML; Start 10/10/18 at 09:00 Zolpidem Tartrate (Ambien) 5 mg HS PRN PO INSOMNIA Last administered on 10/20/18 03:20; Admin Dose 5 MG; Start 10/09/18 at 14:00 Miscellaneous Information 1 ea NOTE XX ; Start 10/09/18 at 15:00 Glucose (Glutose) 15 gm Q15M PRN PO DECREASED GLUCOSE; Start 10/09/18 at 15:00 Glucose (Glutose) 22.5 gm Q15M PRN PO DECREASED GLUCOSE; Start 10/09/18 at 15:00 Dextrose (D50w Syringe) 25 ml Q15M PRN IV DECREASED GLUCOSE; Start 10/09/18 at 15:00 Dextrose (D50w Syringe) 50 ml Q15M PRN IV DECREASED GLUCOSE; Start 10/09/18 at 15:00 Glucagon (Glucagen) 1 mg Q15M PRN IM DECREASED GLUCOSE; Start 10/09/18 at 15:00 Glucose (Glutose) 15 gm Q15M PRN BUCCAL DECREASED GLUCOSE; Start 10/09/18 at 15:00 Sodium Chloride 500 ml @ 500 mls/hr Q1H PRN IV BLOOD PRESSURE SUPPORT Last administered on 10/10/18at 07:59; Admin Dose 500 MLS/HR; Start 10/09/18 at 19:30 Albuterol (Ventolin Hfa) 4 puff Q6H RESP THERAPY INH Last administered on 10/20/18 01:54; Admin Dose 4 PUFF; Start 10/10/18 at 02:00 Ipratropium [place] (Atrovent Hfa) 4 puff Q6H RESP THERAPY INH Last administered on 10/20/18 01:54; Admin Dose 4 PUFF; Start 10/10/18 at 02:00 Methylprednisolone Sodium Succinate (Solu-Medrol) 40 mg Q8 IV Last administered on 10/20/18 05:31; Admin Dose 40 MG; Start 10/14/18 at 14:00 Quetiapine Fumarate (Seroquel) 50 mg BID GTB Last administered on 10/20/18 08:10; Admin Dose 50 MG; Start 10/14/18 at 13:30 Lorazepam (Ativan) 1 mg Q4H PRN GTB AGITATION/ANXIETY Last administered on 10/19/18 17:35; Admin Dose 1 MG; Start 10/14/18 at 13:00 Lisinopril (Zestril) 2.5 mg DAILY PO Last administered on 10/18/18 08:28; Admin Dose 2.5 MG; Start 10/15/18 at 09:00; Status Hold Hydromorphone HCl (Dilaudid) 2 mg Q4H PRN PO PAIN LEVEL 4-6 Last administered on 10/20/18 08:25; Admin Dose 2 MG; Start 10/14/18 at 17:30 Linagliptin (Tradjenta) 5 mg DAILY PO Last administered on 10/20/18 08:20; Admin Dose 5 MG; Start 10/16/18 at 10:30 Carvedilol (Coreg) 6.25 mg BID PO Last administered on 10/20/18 08:14; Admin Dose 6.25 MG; Start 10/17/18 at 21:00 Calcium Carbonate (Ca Carbonate) 1,250 mg TID GTB Last administered on 10/20/18 08:13; Admin Dose 1,250 MG; Start 10/17/18 at 14:00 Fentanyl (Duragesic 50 Mcg/Hr Patch) 1 patch Q72H TRANSDERM Last administered on 10/17/18 20:56; Admin Dose 1 PATCH; Start 10/17/18 at 20:30 Calcitriol (Rocaltrol) 0.25 mcg DAILY PO Last administered on 10/20/18 08:08; Admin Dose 0.25 MCG; Start 10/18/18 at 09:00 Lorazepam (Ativan) 1 mg Q6H GTB Last administered on 10/20/18 08:09; Admin Dose 1 MG; Start 10/19/18 at 15:00 PILAR BERGER Oct 20, 2018 09:34
--- NOTE | 2018-10-20 11:22 | CONS ---
Assessment/Plan Assessment/Plan Hospital Course (Demo Recall) IMPRESSION: 1. Tachycardia at this time in the setting of fevers and respiratory distress, most consistent with sinus tachycardia likely driving this process. 2. Hypertension with borderline hypotension at this time. -still borderline Hotn 3. Abnormal electrocardiogram at baseline. 4. Chronic respiratory failure, status post tracheostomy.-weaning vent support 5. Dysphagia, status post G-tube. 6. Quadriplegia. 7. Renal insufficiency, on steroids. 8. Chronic obstructive pulmonary disease. 9. Rheumatoid arthritis. 10. Chronic kidney disease. 11. Diabetes mellitus. 12.Adrenal insufficiency 14. cardiomyopathy-EF 35-40% by echo this admit Recc -ICU -Vent support as necessary -Follow volume status closely -Continue abx's and f/u cx data -continue steroids -Contineu low dose BB as tolerated with ACEI currently held -s/p dose IVP digoxin with reasonable HR control Consultation Date/Type/Reason Admit Date/Time Oct 09, 2018 at 12:16 Initial Consult Date 10/09/18 Type of Consult Cardiology Reason for Consultation tachycardia Requesting Provider: NOLA VIDAL MD Date/Time of Note DATE: 10/20/18 TIME: 11:19 Exam/Review of Systems Vital Signs Vitals Vital Signs Date Temp Pulse Resp B/P (MAP) Pulse Ox O2 O2 Flow FiO2 Time Delivery Rate 10/20/18 102 22 95/72 (80) 97 Mechanical 10:00 Ventilator 10/20/18 99.1 08:00 10/20/18 80 08:00 Intake and Output 10/19/18 10/19/18 10/20/18 1515:00 23:00 07:00 IntakeIntake Total 660 ml 570 ml 520 ml OutputOutput Total 825 ml 1075 ml 300 ml BalanceBalance -165 ml -505 ml 220 ml Exam Exam Review of Systems: CONSTITUTIONAL: No fevers, chills. PULMONARY: No sob CARDIOVASCULAR: No chest pain/palpitations GASTROINTESTINAL: No nausea/vomiting. GENITOURINARY: No hematuria/dysuria. MUSCULOSKELETAL: No myagias/arthalgias. PSYCHIATRIC: The patient denies depression. NEUROLOGIC: No weakness Constitutional: alert Psych: no complaints Head: normocephalic ENMT: mucosa pink and moist Neck: supple, jvd (9 cm water) Respiratory: diminished breath sounds (at bases/B) Cardiovascular: regular rate and rhythm Gastrointestinal: soft, non-tender Musculoskeletal: muscle tone (normal) Extremities: edema (none) Neurological: other (No focal deficits) Labs Result Diagram: 10/20/18 0501 10/20/18 0501 Results 24hrs Laboratory Tests Test 10/19/18 14:37 10/19/18 20:24 10/20/18 02:07 10/20/18 05:01 Bedside Glucose 115 184 178 White Blood Count 17.4 H Red Blood Count 3.41 L Hemoglobin 9.7 L Hematocrit 31.4 L Mean Corpuscular Volume 92.1 Mean Corpuscular 28.4 L Hemoglobin Mean Corpuscular 30.9 L Hemoglobin Concent Red Cell Distribution 18.6 H Width Platelet Count 457 H Mean Platelet Volume 10.9 H Immature Granulocytes % 4.300 H Neutrophils % 83.0 H Lymphocytes % 4.7 L Monocytes % 7.8 Eosinophils % 0.0 Basophils % 0.2 Nucleated Red Blood 0.0 Cells % Immature Granulocytes # 0.750 H Neutrophils # 14.4 H Lymphocytes # 0.8 Monocytes # 1.4 H Eosinophils # 0.0 Basophils # 0.0 Nucleated Red Blood 0.0 Cells # Sodium Level 133 L Potassium Level 4.7 Chloride Level 90 L Carbon Dioxide Level 37 H Anion Gap 6 Blood Urea Nitrogen 30 H Creatinine 0.50 L Est Glomerular Filtrat > 60 Rate mL/min Glucose Level 149 Calcium Level 5.9 *L Phosphorus Level 5.9 H Magnesium Level 1.7 Test 10/20/18 08:20 Bedside Glucose 184 Medications Medications Current Medications Acetaminophen (Tylenol Liquid) 650 mg Q4H PRN GTB MILD PAIN(1-3)OR ELEVATED TEMP Last administered on 10/16/18at 07:52; Admin Dose 650 MG; Start 10/09/18 at 14:00 Al Hydrox/Mg Hydrox/Simethicone (Mag-Al Plus) 15 ml Q6H PRN PO GASTROINTESTINAL UPSET Last administered on 10/17/18at 13:18; Admin Dose 15 ML; Start 10/09/18 at 14:00 Eye Lubricant (Artificial Tears Oph) 1 drop Q6H PRN BOTH EYES DRY EYES; Start 10/09/18 at 14:00 Bisacodyl (Dulcolax Supp) 10 mg DAILY PRN [place] CONSTIPATION; Start 10/09/18 at 14:00 Clonidine (Catapres) 0.1 mg DAILY PRN GTB ELEVATED BLOOD PRESSURE; Start 10/09/18 at 14:00 Diltiazem HCl (Cardizem Iv) 5 mg Q4 PRN IV ELEVATED HEART RATE Last administered on 10/18/18 01:09; Admin Dose 5 MG; Start 10/09/18 at 14:00 Diphenhydramine HCl (Benadryl Liquid Cup) 25 mg Q6 PRN GTB ITCHING Last administered on 10/17/18 23:27; Admin Dose 25 MG; Start 10/09/18 at 14:00 Duloxetine HCl (Cymbalta) 30 mg DAILY PO Last administered on 10/20/18 08:12; Admin Dose 30 MG; Start 10/10/18 at 09:00 Epoetin Arpan (Epogen (Esrd)) 10,000 units TuSa@1300 SC Last administered on 10/18/18 13:32; Admin Dose 10,000 UNITS; Start 10/11/18 at 13:00 Gabapentin (Neurontin Liquid) 400 mg Q8 GTB Last administered on 10/20/18 05:31; Admin Dose 400 MG; Start 10/09/18 at 15:30 Hydralazine HCl (Apresoline) 10 mg Q4H PRN IV ELEVATED BLOOD PRESSURE; Start 10/09/18 at 14:00 Hydromorphone HCl (Dilaudid) 4 mg Q4H PRN PO MODERATE PAIN LEVEL 7-10 Last administered on 10/20/18 02:03; Admin Dose 4 MG; Start 10/09/18 at 14:00 Hydroxychloroquine Sulfate (Plaquenil) 200 mg BID PO Last administered on 10/20/18 08:10; Admin Dose 200 MG; Start 10/09/18 at 21:00 Diagnostic Test (Pha) (Accu-Chek) 1 ea 02 XX Last administered on 10/20/18 02:03; Admin Dose 1 EA; Start 10/10/18 at 02:00 Insulin Aspart (Novolog Insulin Pen) NOVOLOG *CUSTOM* ALGORITHM Q6H SC Last administered on 10/20/18 08:28; Admin Dose 1 UNIT; Start 10/09/18 at 14:00 Lactobacillus Acidophilus (Florajen3 Capsule) 1 each BID GTB Last administered on 10/20/18 08:15; Admin Dose 1 EACH; Start 10/09/18 at 21:00 Lansoprazole (Prevacid) 30 mg BID@,18 GTB Last administered on 10/20/18 05:31; Admin Dose 30 MG; Start 10/09/18 at 18:00 Levetiracetam (Keppra Liquid) 500 mg BID GTB Last administered on 10/20/18 08:12; Admin Dose 500 MG; Start 10/09/18 at 21:00 Magnesium Oxide (Mag-Ox 400) 400 mg BID GTB Last administered on 10/20/18 08:10; Admin Dose 400 MG; Start 10/09/18 at 21:00 Metoclopramide HCl (Reglan) 10 mg TID IV Last administered on 10/20/18 08:14; Admin Dose 10 MG; Start 10/09/18 at 21:00 Miconazole Nitrate (Miconazole 2% Cr) 1 applic BID TOP Last administered on 10/20/18 08:16; Admin Dose 1 APPLIC; Start 10/09/18 at 21:00 Miconazole Nitrate (Miconazole 2% Cr) 1 applic Q12 PRN TOP rash; Start 10/09/18 at 14:00 Ondansetron HCl (Zofran Inj) 4 mg Q4H PRN IV NAUSEA AND/OR VOMITING Last administered on 10/19/18 16:37; Admin Dose 4 MG; Start 10/09/18 at 14:00 Polyethylene Glycol (Miralax) 17 gm DAILY PRN GTB CONSTIPATION; Start 10/09/18 at 14:00 Senna (Senokot) 2 tab Q8 PRN PO CONSTIPATION; Start 10/09/18 at 14:00 Trimethoprim/ Sulfamethoxazole (Bactrim Susp) 40 ml DAILY GTB Last administered on 10/20/18 08:13; Admin Dose 40 ML; Start 10/10/18 at 09:00 Zolpidem Tartrate (Ambien) 5 mg HS PRN PO INSOMNIA Last administered on 10/20/18 03:20; Admin Dose 5 MG; Start 10/09/18 at 14:00 Miscellaneous Information 1 ea NOTE XX ; Start 10/09/18 at 15:00 Glucose (Glutose) 15 gm Q15M PRN PO DECREASED GLUCOSE; Start 10/09/18 at 15:00 Glucose (Glutose) 22.5 gm Q15M PRN PO DECREASED GLUCOSE; Start 10/09/18 at 15:00 Dextrose (D50w Syringe) 25 ml Q15M PRN IV DECREASED GLUCOSE; Start 10/09/18 at 15:00 Dextrose (D50w Syringe) 50 ml Q15M PRN IV DECREASED GLUCOSE; Start 10/09/18 at 15:00 Glucagon (Glucagen) 1 mg Q15M PRN IM DECREASED GLUCOSE; Start 10/09/18 at 15:00 Glucose (Glutose) 15 gm Q15M PRN BUCCAL DECREASED GLUCOSE; Start 10/09/18 at 15:00 Sodium Chloride 500 ml @ 500 mls/hr Q1H PRN IV BLOOD PRESSURE SUPPORT Last administered on 10/10/18 07:59; Admin Dose 500 MLS/HR; Start 10/09/18 at 19:30 Albuterol (Ventolin Hfa) 4 puff Q6H RESP THERAPY INH Last administered on 10/20/18 09:33; Admin Dose 4 PUFF; Start 10/10/18 at 02:00 Ipratropium [place] (Atrovent Hfa) 4 puff Q6H RESP THERAPY INH Last administered on 10/20/18 09:33; Admin Dose 4 PUFF; Start 10/10/18 at 02:00 Methylprednisolone Sodium Succinate (Solu-Medrol) 40 mg Q8 IV Last administered on 10/20/18 05:31; Admin Dose 40 MG; Start 10/14/18 at 14:00 Quetiapine Fumarate (Seroquel) 50 mg BID GTB Last administered on 10/20/18 08:10; Admin Dose 50 MG; Start 10/14/18 at 13:30 Lorazepam (Ativan) 1 mg Q4H PRN GTB AGITATION/ANXIETY Last administered on 10/19/18 17:35; Admin Dose 1 MG; Start 10/14/18 at 13:00 Lisinopril (Zestril) 2.5 mg DAILY PO Last administered on 10/18/18 08:28; Admin Dose 2.5 MG; Start 10/15/18 at 09:00; Status Hold Hydromorphone HCl (Dilaudid) 2 mg Q4H PRN PO PAIN LEVEL 4-6 Last administered on 10/20/18 08:25; Admin Dose 2 MG; Start 10/14/18 at 17:30 Linagliptin (Tradjenta) 5 mg DAILY PO Last administered on 10/20/18 08:20; Admin Dose 5 MG; Start 10/16/18 at 10:30 Carvedilol (Coreg) 6.25 mg BID PO Last administered on 10/20/18 08:14; Admin Dose 6.25 MG; Start 10/17/18 at 21:00 Calcium Carbonate (Ca Carbonate) 1,250 mg TID GTB Last administered on 10/20/18 08:13; Admin Dose 1,250 MG; Start 10/17/18 at 14:00 Fentanyl (Duragesic 50 Mcg/Hr Patch) 1 patch Q72H TRANSDERM Last administered on 10/17/18 20:56; Admin Dose 1 PATCH; Start 10/17/18 at 20:30 Calcitriol (Rocaltrol) 0.25 mcg DAILY PO Last administered on 10/20/18 08:08; Admin Dose 0.25 MCG; Start 10/18/18 at 09:00 Lorazepam (Ativan) 2 mg Q6H GTB ; Start 10/20/18 at 15:00 BRISA HAQUE Oct 20, 2018 11:21
[2018-10-20] MEDS: OXYCODONE/ACETAMINOPHEN (5/325) TAB PO PRN (13:50)
--- NOTE | 2018-10-20 15:46 | PN ---
Date/Time of Note Date/Time of Note DATE: 10/20/18 TIME: 15:40 Assessment/Plan VTE Prophylaxis Risk score (from Ns)>0 risk: 5 SCD applied (from Ns): Yes Pharmacological prophylaxis: NA/contraindicated Pharm contraindication: bleeding, other Lines/Catheters IV Catheter Type (from Nrsg): Mid Line Urinary Cath still in place: No (Condom Cath) Assessment/Plan Hospital Course Patient with mild tachycardia, continues on ventilatory support with 70% FiO2 and PEEP of 5. Continue Ativan for agitation, current pain management. Assessment/Plan - Acute on chronic hypoxemic respiratory failure with underlying ARDS, continue ventilatory support. Dr. Villa is following in pulmonology consultation. - Acute kidney injury, continue to monitor BUN and creatinine. G-tube feeding changed to renal source. Dr. Hobson is following in nephrology consultation. -Tachycardia, Dr. Joshi is following in cardiology consultation. - Cardiomyopathy with EF 35-40% - Rheumatoid arthritis with steroid dependence. The patient's pain seems to be controlled with the current dose of fentanyl. - Dysphagia. Continue GT feeding. - Anemia of chronic disease. - Hypoparathyroidism with recent hypercalcemia, status post pamidronate, resolved. - Hypertension. - Functional quadriplegia - Hx of severe cervical spinal cord stenosis with cord compression from C3-C5, s/p laminectomy. - History of fibromyalgia rheumatica - Hx of VAT on 08/11/2018 Critical care time spent 30 minutes. Further recommendations based on clinical course. Plan of care discussed with Dr. Rosales Result Diagram: 10/20/18 0501 10/20/18 0501 Results 24hrs Laboratory Tests Test 10/19/18 20:24 10/20/18 02:07 10/20/18 05:01 10/20/18 08:20 Bedside Glucose 184 178 184 White Blood Count 17.4 H Red Blood Count 3.41 L Hemoglobin 9.7 L Hematocrit 31.4 L Mean Corpuscular Volume 92.1 Mean Corpuscular 28.4 L Hemoglobin Mean Corpuscular 30.9 L Hemoglobin Concent Red Cell Distribution 18.6 H Width Platelet Count 457 H Mean Platelet Volume 10.9 H Immature Granulocytes % 4.300 H Neutrophils % 83.0 H Lymphocytes % 4.7 L Monocytes % 7.8 Eosinophils % 0.0 Basophils % 0.2 Nucleated Red Blood 0.0 Cells % Immature Granulocytes # 0.750 H Neutrophils # 14.4 H Lymphocytes # 0.8 Monocytes # 1.4 H Eosinophils # 0.0 Basophils # 0.0 Nucleated Red Blood 0.0 Cells # Sodium Level 133 L Potassium Level 4.7 Chloride Level 90 L Carbon Dioxide Level 37 H Anion Gap 6 Blood Urea Nitrogen 30 H Creatinine 0.50 L Est Glomerular Filtrat > 60 Rate mL/min Glucose Level 149 Calcium Level 5.9 *L Phosphorus Level 5.9 H Magnesium Level 1.7 Test 10/20/18 13:51 Bedside Glucose 170 Exam/Review of Systems Exam Vitals Vital Signs Date Temp Pulse Resp B/P (MAP) Pulse Ox O2 O2 Flow FiO2 Time Delivery Rate 10/20/18 111 29 128/97 98 Mechanical 14:00 (107) Ventilator 10/20/18 99.1 12:00 10/20/18 70 12:00 Intake and Output 10/19/18 10/19/18 10/20/18 1515:00 23:00 07:00 IntakeIntake Total 660 ml 570 ml 520 ml OutputOutput Total 825 ml 1075 ml 300 ml BalanceBalance -165 ml -505 ml 220 ml Exam Constitutional: alert, oriented, frail Neck: other (trach) Respiratory: diminished breath sounds Cardiovascular: regular rate and rhythm Gastrointestinal: soft, non-tender, other Neurological: nl mental status Results Results 24hrs Laboratory Tests Test 10/19/18 20:24 10/20/18 02:07 10/20/18 05:01 10/20/18 08:20 Bedside Glucose 184 178 184 White Blood Count 17.4 H Red Blood Count 3.41 L Hemoglobin 9.7 L Hematocrit 31.4 L Mean Corpuscular Volume 92.1 Mean Corpuscular 28.4 L Hemoglobin Mean Corpuscular 30.9 L Hemoglobin Concent Red Cell Distribution 18.6 H Width Platelet Count 457 H Mean Platelet Volume 10.9 H Immature Granulocytes % 4.300 H Neutrophils % 83.0 H Lymphocytes % 4.7 L Monocytes % 7.8 Eosinophils % 0.0 Basophils % 0.2 Nucleated Red Blood 0.0 Cells % Immature Granulocytes # 0.750 H Neutrophils # 14.4 H Lymphocytes # 0.8 Monocytes # 1.4 H Eosinophils # 0.0 Basophils # 0.0 Nucleated Red Blood 0.0 Cells # Sodium Level 133 L Potassium Level 4.7 Chloride Level 90 L Carbon Dioxide Level 37 H Anion Gap 6 Blood Urea Nitrogen 30 H Creatinine 0.50 L Est Glomerular Filtrat > 60 Rate mL/min Glucose Level 149 Calcium Level 5.9 *L Phosphorus Level 5.9 H Magnesium Level 1.7 Test 10/20/18 13:51 Bedside Glucose 170 Medications Medication Current Medications Acetaminophen (Tylenol Liquid) 650 mg Q4H PRN GTB MILD PAIN(1-3)OR ELEVATED TEMP Last administered on 10/16/18 07:52; Admin Dose 650 MG; Start 10/09/18 at 14:00 Al Hydrox/Mg Hydrox/Simethicone (Mag-Al Plus) 15 ml Q6H PRN PO GASTROINTESTINAL UPSET Last administered on 10/17/18 13:18; Admin Dose 15 ML; Start 10/09/18 at 14:00 Eye Lubricant (Artificial Tears Oph) 1 drop Q6H PRN BOTH EYES DRY EYES; Start 10/09/18 at 14:00 Bisacodyl (Dulcolax Supp) 10 mg DAILY PRN [place] CONSTIPATION; Start 10/09/18 at 14:00 Clonidine (Catapres) 0.1 mg DAILY PRN GTB ELEVATED BLOOD PRESSURE; Start 10/09/18 at 14:00 Diltiazem HCl (Cardizem Iv) 5 mg Q4 PRN IV ELEVATED HEART RATE Last administered on 10/18/18 01:09; Admin Dose 5 MG; Start 10/09/18 at 14:00 Diphenhydramine HCl (Benadryl Liquid Cup) 25 mg Q6 PRN GTB ITCHING Last administered on 10/17/18 23:27; Admin Dose 25 MG; Start 10/09/18 at 14:00 Duloxetine HCl (Cymbalta) 30 mg DAILY PO Last administered on 10/20/18 08:12; Admin Dose 30 MG; Start 10/10/18 at 09:00 Epoetin Arpan (Epogen (Esrd)) 10,000 units TuSa@1300 SC Last administered on 10/18/18 13:32; Admin Dose 10,000 UNITS; Start 10/11/18 at 13:00 Gabapentin (Neurontin Liquid) 400 mg Q8 GTB Last administered on 10/20/18 13:50; Admin Dose 400 MG; Start 10/09/18 at 15:30 Hydralazine HCl (Apresoline) 10 mg Q4H PRN IV ELEVATED BLOOD PRESSURE; Start 10/09/18 at 14:00 Hydromorphone HCl (Dilaudid) 4 mg Q4H PRN PO MODERATE PAIN LEVEL 7-10 Last administered on 10/20/18 02:03; Admin Dose 4 MG; Start 10/09/18 at 14:00 Hydroxychloroquine Sulfate (Plaquenil) 200 mg BID PO Last administered on 10/20/18 08:10; Admin Dose 200 MG; Start 10/09/18 at 21:00 Diagnostic Test (Pha) (Accu-Chek) 1 ea 02 XX Last administered on 10/20/18 02 :03; Admin Dose 1 EA; Start 10/10/18 at 02:00 Insulin Aspart (Novolog Insulin Pen) NOVOLOG *CUSTOM* ALGORITHM Q6H SC Last administered on 10/20/18 13:53; Admin Dose 1 UNIT; Start 10/09/18 at 14:00 Lactobacillus Acidophilus (Florajen3 Capsule) 1 each BID GTB Last administered on 10/20/18 08:15; Admin Dose 1 EACH; Start 10/09/18 at 21:00 Lansoprazole (Prevacid) 30 mg BID@06,18 GTB Last administered on 10/20/18 05:31; Admin Dose 30 MG; Start 10/09/18 at 18:00 Levetiracetam (Keppra Liquid) 500 mg BID GTB Last administered on 10/20/18 08:12; Admin Dose 500 MG; Start 10/09/18 at 21:00 Magnesium Oxide (Mag-Ox 400) 400 mg BID GTB Last administered on 10/20/18 08:10; Admin Dose 400 MG; Start 10/09/18 at 21:00 Metoclopramide HCl (Reglan) 10 mg TID IV Last administered on 10/20/18 13:51; Admin Dose 10 MG; Start 10/09/18 at 21:00 Miconazole Nitrate (Miconazole 2% Cr) 1 applic BID TOP Last administered on 10/20/18 08:16; Admin Dose 1 APPLIC; Start 10/09/18 at 21:00 Miconazole Nitrate (Miconazole 2% Cr) 1 applic Q12 PRN TOP rash; Start 10/09/18 at 14:00 Ondansetron HCl (Zofran Inj) 4 mg Q4H PRN IV NAUSEA AND/OR VOMITING Last administered on 10/19/18 16:37; Admin Dose 4 MG; Start 10/09/18 at 14:00 Polyethylene Glycol (Miralax) 17 gm DAILY PRN GTB CONSTIPATION; Start 10/09/18 at 14:00 Senna (Senokot) 2 tab Q8 PRN PO CONSTIPATION; Start 10/09/18 at 14:00 Trimethoprim/ Sulfamethoxazole (Bactrim Susp) 40 ml DAILY GTB Last administered on 10/20/18 08:13; Admin Dose 40 ML; Start 10/10/18 at 09:00 Zolpidem Tartrate (Ambien) 5 mg HS PRN PO INSOMNIA Last administered on 10/20/18 03:20; Admin Dose 5 MG; Start 10/09/18 at 14:00 Miscellaneous Information 1 ea NOTE XX ; Start 10/09/18 at 15:00 Glucose (Glutose) 15 gm Q15M PRN PO DECREASED GLUCOSE; Start 10/09/18 at 15:00 Glucose (Glutose) 22.5 gm Q15M PRN PO DECREASED GLUCOSE; Start 10/09/18 at 15:00 Dextrose (D50w Syringe) 25 ml Q15M PRN IV DECREASED GLUCOSE; Start 10/09/18 at 15:00 Dextrose (D50w Syringe) 50 ml Q15M PRN IV DECREASED GLUCOSE; Start 10/09/18 at 15:00 Glucagon (Glucagen) 1 mg Q15M PRN IM DECREASED GLUCOSE; Start 10/09/18 at 15:00 Glucose (Glutose) 15 gm Q15M PRN BUCCAL DECREASED GLUCOSE; Start 10/09/18 at 15:00 Sodium Chloride 500 ml @ 500 mls/hr Q1H PRN IV BLOOD PRESSURE SUPPORT Last administered on 10/10/18 07:59; Admin Dose 500 MLS/HR; Start 10/09/18 at 19:30 Albuterol (Ventolin Hfa) 4 puff Q6H RESP THERAPY INH Last administered on 10/20/18 09:33; Admin Dose 4 PUFF; Start 10/10/18 at 02:00 Ipratropium [place] (Atrovent Hfa) 4 puff Q6H RESP THERAPY INH Last administered on 10/20/18 09:33; Admin Dose 4 PUFF; Start 10/10/18 at 02:00 Methylprednisolone Sodium Succinate (Solu-Medrol) 40 mg Q8 IV Last administered on 10/20/18 13:50; Admin Dose 40 MG; Start 10/14/18 at 14:00 Quetiapine Fumarate (Seroquel) 50 mg BID GTB Last administered on 10/20/18 08:10; Admin Dose 50 MG; Start 10/14/18 at 13:30 Lorazepam (Ativan) 1 mg Q4H PRN GTB AGITATION/ANXIETY Last administered on 10/19/18 17:35; Admin Dose 1 MG; Start 10/14/18 at 13:00 Lisinopril (Zestril) 2.5 mg DAILY PO Last administered on 10/18/18 08:28; Admin Dose 2.5 MG; Start 10/15/18 at 09:00; Status Hold Linagliptin (Tradjenta) 5 mg DAILY PO Last administered on 10/20/18 08:20; Admin Dose 5 MG; Start 10/16/18 at 10:30 Carvedilol (Coreg) 6.25 mg BID PO Last administered on 10/20/18 08:14; Admin Dose 6.25 MG; Start 10/17/18 at 21:00 Calcium Carbonate (Ca Carbonate) 1,250 mg TID GTB Last administered on 10/20/18 13:50; Admin Dose 1,250 MG; Start 10/17/18 at 14:00 Fentanyl (Duragesic 50 Mcg/Hr Patch) 1 patch Q72H TRANSDERM Last administered on 10/17/18 20:56; Admin Dose 1 PATCH; Start 10/17/18 at 20:30 Calcitriol (Rocaltrol) 0.25 mcg DAILY PO Last administered on 10/20/18 08:08; Admin Dose 0.25 MCG; Start 10/18/18 at 09:00 Lorazepam (Ativan) 2 mg Q6H GTB Last administered on 10/20/18 14:44; Admin Dose 2 MG; Start 10/20/18 at 15:00 Oxycodone/ Acetaminophen (Percocet (5/ 325)) 1 tab Q4H PRN PO MODERATE PAIN LEVEL 4-6 Last administered on 3/7/19at 13:50; Admin Dose 1 TAB; Start 10/20/18 at 11:30 CAROLYN LANGLEY Oct 20, 2018 15:45
--- NOTE | 2018-10-20 16:58 | CONS ---
Assessment/Plan Assessment/Plan Hospital Course (Demo Recall) # sepsis, respiratory - recurrent sepsis on 10/08/2018 due to aspiration pneumonia, HCAP - possible aspiration pneumonia, recurrent pneumonia due to citrobacter - acute on chronic hypoxic and hypercarbic respiratory failure - persistent leukocytosis likely due to steroid margination - h/o tracheostomy on 08/26/2018 - h/o "Increased mild left apical pneumothorax" per CXR on 09/19/2018; no pneumot horax mentioned on subsequent CXR - h/o pneumomediastinum - h/o VAT on 08/11/2018 - h/o asthma/COPD exacerbation - h/o acute tracheobronchitis - h/o MAC infection but CT chest did not demonstrate features suggestive of this per chart review - h/o HCAP due to citrobacter, based on resp culture on 09/13/2018 - h/o aspergillus growing out of resp culture per (pulm note by Dr. Lopez) on 07/25/2018 - h/o elevated 1,3 [id number] level = 232 on 08/06/2018 - h/o MSSA septicemia # GI - diarrhea, C diff on 10/09/2018 was negative - h/o HSV esophagitis, took acyclovir x21 days from 08/26/2018 - h/o EGD, esophageal biopsy showed esophageal squamous mucosa showing acute inflammation, granulation tissue, and ulceration consistent with ulcerative esophagitis, rare multinucleated cells with morphology suggestive of vial cytopathic changes, No cardiac mucosa, intestinal metaplasia, dysplasia, or malignancy defined - GERD - PUD # renal/ - Hypokalemia, recurrent - CKD 2 - BPH # cardiac - tachycardia, persistent - ACD - HTN - HLD # endo - T2DM - Hgb A1c 7.2% - secondary adrenal insufficiency; steroid dependent - Hypoparathyroidism - Hypercalcemia - Pamidronate was ordered # neuro - toxic metabolic encephalopathy - Cervical myopathy - Severe cervical spinal cord stenosis with cord compression from C3-C5, s/p laminectomy in ~03/2018 - Chronic pain syndrome - Functional quadriplegia - Seizure d/o # other chronic conditions - RA with chronic steroid dependence - Immunocompromised status - Fibromyalgia rheumatica - DDD - H/o multiple rib fracture - Pt completed: meropenem (09/25/2018-10/02/2018), vancomycin (09/25/18-09/28/18), pip/tazo (10/09/2018-10/15/2018) recommendations - pending: pneumocystis DFA - ordered: Pt reportedly has remote h/o MAC infection and therefore, will place him on airborne precautions and r/o AFB, in particular mycobacterium avium intracellulaire, quantiferon TB gold, coccidioides serology - continue Bactrim for pneumocystis PPX - continue to monitor off other systemic antibiotic management d/w Pt's ARIANNA Paul and RT the critical care time I took to care for this Pt today was from 1630 to 1700 Consultation Date/Type/Reason Admit Date/Time Oct 09, 2018 at 12:16 Initial Consult Date 10/09/18 Type of Consult ID Reason for Consultation pneumonia Requesting Provider: NOLA VIDAL MD Date/Time of Note DATE: 10/20/18 TIME: 16:50 24 HR Interval Summary Subjective hx not possible: pt non-verbal, pt critical, pt critical status Exam/Review of Systems Exam Vitals Vital Signs Date Temp Pulse Resp B/P (MAP) Pulse Ox O2 O2 Flow FiO2 Time Delivery Rate 10/20/18 99.2 102 22 103/76 98 Mechanical 16:00 (85) Ventilator 10/20/18 70 12:00 Intake and Output 10/19/18 10/19/18 10/20/18 1414:59 22:59 06:59 IntakeIntake Total 675 ml 570 ml 520 ml OutputOutput Total 400 ml 1500 ml 75 ml BalanceBalance 275 ml -930 ml 445 ml Constitutional: non-verbal, frail Psych: no complaints, nl mood/affect Head: normocephalic, atraumatic Eyes: nl conjunctiva, nl lids ENMT: nl external ears & nose, nl nasal mucosa & septum, mucosa pink and moist Neck: other (trach) Respiratory: crackles/rales Cardiovascular: regular rate and rhythm, nl pulses Gastrointestinal: soft, non-tender, other (GT) Genitourinary - Male: other (FC) Musculoskeletal: No swelling Extremities: No edema Neurological: lethargic Skin: rash or lesions (coccygeal erythema) Results Result Diagram: 10/20/18 0501 10/20/18 0501 Results 24hrs Laboratory Tests Test 10/19/18 20:24 10/20/18 02:07 10/20/18 05:01 10/20/18 08:20 Bedside Glucose 184 178 184 White Blood Count 17.4 H Red Blood Count 3.41 L Hemoglobin 9.7 L Hematocrit 31.4 L Mean Corpuscular Volume 92.1 Mean Corpuscular 28.4 L Hemoglobin Mean Corpuscular 30.9 L Hemoglobin Concent Red Cell Distribution 18.6 H Width Platelet Count 457 H Mean Platelet Volume 10.9 H Immature Granulocytes % 4.300 H Neutrophils % 83.0 H Lymphocytes % 4.7 L Monocytes % 7.8 Eosinophils % 0.0 Basophils % 0.2 Nucleated Red Blood 0.0 Cells % Immature Granulocytes # 0.750 H Neutrophils # 14.4 H Lymphocytes # 0.8 Monocytes # 1.4 H Eosinophils # 0.0 Basophils # 0.0 Nucleated Red Blood 0.0 Cells # Sodium Level 133 L Potassium Level 4.7 Chloride Level 90 L Carbon Dioxide Level 37 H Anion Gap 6 Blood Urea Nitrogen 30 H Creatinine 0.50 L Est Glomerular Filtrat > 60 Rate mL/min Glucose Level 149 Calcium Level 5.9 *L Phosphorus Level 5.9 H Magnesium Level 1.7 Test 10/20/18 13:51 Bedside Glucose 170 Medications Medication Current Medications Acetaminophen (Tylenol Liquid) 650 mg Q4H PRN GTB MILD PAIN(1-3)OR ELEVATED TE MP Last administered on 10/16/18at 07:52; Admin Dose 650 MG; Start 10/09/18 at 14:00 Al Hydrox/Mg Hydrox/Simethicone (Mag-Al Plus) 15 ml Q6H PRN PO GASTROINTESTINAL UPSET Last administered on 10/17/18at 13:18; Admin Dose 15 ML; Start 10/09/18 at 14:00 Eye Lubricant (Artificial Tears Oph) 1 drop Q6H PRN BOTH EYES DRY EYES; Start 10/09/18 at 14:00 Bisacodyl (Dulcolax Supp) 10 mg DAILY PRN [place] CONSTIPATION; Start 10/09/18 at 14:00 Clonidine (Catapres) 0.1 mg DAILY PRN GTB ELEVATED BLOOD PRESSURE; Start 10/09/18 at 14:00 Diltiazem HCl (Cardizem Iv) 5 mg Q4 PRN IV ELEVATED HEART RATE Last administe red on 10/18/18at 01:09; Admin Dose 5 MG; Start 10/09/18 at 14:00 Diphenhydramine HCl (Benadryl Liquid Cup) 25 mg Q6 PRN GTB ITCHING Last administered on 10/17/18 23:27; Admin Dose 25 MG; Start 10/09/18 at 14:00 Duloxetine HCl (Cymbalta) 30 mg DAILY PO Last administered on 10/20/18 08:12; Admin Dose 30 MG; Start 10/10/18 at 09:00 Epoetin Arpan (Epogen (Esrd)) 10,000 units TuSa@1300 SC Last administered on 10/18/18 13:32; Admin Dose 10,000 UNITS; Start 10/11/18 at 13:00 Gabapentin (Neurontin Liquid) 400 mg Q8 GTB Last administered on 10/20/18 13:50; Admin Dose 400 MG; Start 10/09/18 at 15:30 Hydralazine HCl (Apresoline) 10 mg Q4H PRN IV ELEVATED BLOOD PRESSURE; Start 10/09/18 at 14:00 Hydromorphone HCl (Dilaudid) 4 mg Q4H PRN PO MODERATE PAIN LEVEL 7-10 Last administered on 10/20/18 02:03; Admin Dose 4 MG; Start 10/09/18 at 14:00 Hydroxychloroquine Sulfate (Plaquenil) 200 mg BID PO Last administered on 10/20/18 08:10; Admin Dose 200 MG; Start 10/09/18 at 21:00 Diagnostic Test (Pha) (Accu-Chek) 1 ea 02 XX Last administered on 10/20/18 02:03; Admin Dose 1 EA; Start 10/10/18 at 02:00 Insulin Aspart (Novolog Insulin Pen) NOVOLOG *CUSTOM* ALGORITHM Q6H SC Last administered on 10/20/18 13:53; Admin Dose 1 UNIT; Start 10/09/18 at 14:00 Lactobacillus Acidophilus (Florajen3 Capsule) 1 each BID GTB Last administered on 10/20/18 08:15; Admin Dose 1 EACH; Start 10/09/18 at 21:00 Lansoprazole (Prevacid) 30 mg BID@06,18 GTB Last administered on 10/20/18 05:31; Admin Dose 30 MG; Start 10/09/18 at 18:00 Levetiracetam (Keppra Liquid) 500 mg BID GTB Last administered on 10/20/18 08:1 2; Admin Dose 500 MG; Start 10/09/18 at 21:00 Magnesium Oxide (Mag-Ox 400) 400 mg BID GTB Last administered on 10/20/18 08:10; Admin Dose 400 MG; Start 10/09/18 at 21:00 Metoclopramide HCl (Reglan) 10 mg TID IV Last administered on 10/20/18 13:51; Admin Dose 10 MG; Start 10/09/18 at 21:00 Miconazole Nitrate (Miconazole 2% Cr) 1 applic BID TOP Last administered on 10/20/18 08:16; Admin Dose 1 APPLIC; Start 10/09/18 at 21:00 Miconazole Nitrate (Miconazole 2% Cr) 1 applic Q12 PRN TOP rash; Start 10/09/18 at 14:00 Ondansetron HCl (Zofran Inj) 4 mg Q4H PRN IV NAUSEA AND/OR VOMITING Last admini stered on 10/19/18at 16:37; Admin Dose 4 MG; Start 10/09/18 at 14:00 Polyethylene Glycol (Miralax) 17 gm DAILY PRN GTB CONSTIPATION; Start 10/09/18 at 14:00 Senna (Senokot) 2 tab Q8 PRN PO CONSTIPATION; Start 10/09/18 at 14:00 Trimethoprim/ Sulfamethoxazole (Bactrim Susp) 40 ml DAILY GTB Last administered on 10/20/18at 08:13; Admin Dose 40 ML; Start 10/10/18 at 09:00 Zolpidem Tartrate (Ambien) 5 mg HS PRN PO INSOMNIA Last administered on 10/20/18 03:20; Admin Dose 5 MG; Start 10/09/18 at 14:00 Miscellaneous Information 1 ea NOTE XX ; Start 10/09/18 at 15:00 Glucose (Glutose) 15 gm Q15M PRN PO DECREASED GLUCOSE; Start 10/09/18 at 15:00 Glucose (Glutose) 22.5 gm Q15M PRN PO DECREASED GLUCOSE; Start 10/09/18 at 15:00 Dextrose (D50w Syringe) 25 ml Q15M PRN IV DECREASED GLUCOSE; Start 10/09/18 at 15:00 Dextrose (D50w Syringe) 50 ml Q15M PRN IV DECREASED GLUCOSE; Start 10/09/18 at 15:00 Glucagon (Glucagen) 1 mg Q15M PRN IM DECREASED GLUCOSE; Start 10/09/18 at 15:00 Glucose (Glutose) 15 gm Q15M PRN BUCCAL DECREASED GLUCOSE; Start 10/09/18 at 15:00 Sodium Chloride 500 ml @ 500 mls/hr Q1H PRN IV BLOOD PRESSURE SUPPORT Last administered on 10/10/18 07:59; Admin Dose 500 MLS/HR; Start 10/09/18 at 19:30 Albuterol (Ventolin Hfa) 4 puff Q6H RESP THERAPY INH Last administered on 10/20/18 09:33; Admin Dose 4 PUFF; Start 10/10/18 at 02:00 Ipratropium [place] (Atrovent Hfa) 4 puff Q6H RESP THERAPY INH Last administered on 10/20/18 09:33; Admin Dose 4 PUFF; Start 10/10/18 at 02:00 Methylprednisolone Sodium Succinate (Solu-Medrol) 40 mg Q8 IV Last administered on 10/20/18 13:50; Admin Dose 40 MG; Start 10/14/18 at 14:00 Quetiapine Fumarate (Seroquel) 50 mg BID GTB Last administered on 10/20/18 08:10; Admin Dose 50 MG; Start 10/14/18 at 13:30 Lorazepam (Ativan) 1 mg Q4H PRN GTB AGITATION/ANXIETY Last administered on 10/19/18 17:35; Admin Dose 1 MG; Start 10/14/18 at 13:00 Lisinopril (Zestril) 2.5 mg DAILY PO Last administered on 10/18/18 08:28; Admin Dose 2.5 MG; Start 10/15/18 at 09:00; Status Hold Linagliptin (Tradjenta) 5 mg DAILY PO Last administered on 10/20/18 08:20; Admin Dose 5 MG; Start 10/16/18 at 10:30 Carvedilol (Coreg) 6.25 mg BID PO Last administered on 10/20/18 08:14; Admin Dose 6.25 MG; Start 10/17/18 at 21:00 Calcium Carbonate (Ca Carbonate) 1,250 mg TID GTB Last administered on 10/20/18 13:50; Admin Dose 1,250 MG; Start 10/17/18 at 14:00 Fentanyl (Duragesic 50 Mcg/Hr Patch) 1 patch Q72H TRANSDERM Last administered on 10/17/18 20:56; Admin Dose 1 PATCH; Start 10/17/18 at 20:30 Calcitriol (Rocaltrol) 0.25 mcg DAILY PO Last administered on 10/20/18 08:08; Admin Dose 0.25 MCG; Start 10/18/18 at 09:00 Lorazepam (Ativan) 2 mg Q6H GTB Last administered on 10/20/18 14:44; Admin Dose 2 MG; Start 10/20/18 at 15:00 Oxycodone/ Acetaminophen (Percocet (5/ 325)) 1 tab Q4H PRN PO MODERATE PAIN LEVEL 4-6 Last administered on 10/20/18 13:50; Admin Dose 1 TAB; Start 10/20/18 at 11:30 NEMO MARTINEZ M.D. Oct 20, 2018 16:58
--- NOTE | 2018-10-20 17:44 | CONS ---
Assessment/Plan Assessment/Plan Problems: (1) Hypocalcemia Onset Date: ~ 10/14/2018 Status: Acute Comment: Patient has rebounded down into hypocalcemic range. Please note he came to [facility] on calcitriol but the transcribed orders were transcribed in such way to give him a supraphysiologic dose of calcitriol. From his admission he was you calcium with the but then over the following 2 weeks developed a hypercalcemia. Calcitriol was held back the calcium did not appreciably decr ease and he received at 30 mg dose of pamidronate. Subsequently his then developed hypocalcemia. He is receiving oral calcium and then given 1 dose IV and will adjust upward on his calcitriol to help cover for this (2) Acquired hypothyroidism Status: Chronic Comment: Stable on replacement therapy (3) Adrenal insufficiency due to steroid withdrawal Status: Chronic Comment: Recently on high-dose IV steroid therapy dose in such way that he will not have any lack of coverage throughout the 24-hour cycle (4) Diabetes mellitus type 2 in nonobese Status: Chronic Comment: Adequate glycemic control (5) Rheumatoid arthritis Status: Chronic Comment: Noted. Qualifiers: Rheumatoid arthritis location: unspecified site Rheumatoid factor presence: with rheumatoid factor Qualified Codes: M05.9 - Rheumatoid arthritis with rheumatoid factor, unspecified (6) VRE (vancomycin resistant enterococcus) culture positive Onset Date: ~ 10/11/2018 Status: Acute Comment: As per infectious disease consultation Consultation Date/Type/Reason Admit Date/Time Oct 09, 2018 at 12:16 Initial Consult Date 10/12/18 Type of Consult Endocrinology Reason for Consultation Hypocalcemia; adrenal insufficiency; diabetes mellitus type 2; functional quadriplegia Requesting Provider: NOLA VIDAL MD Date/Time of Note DATE: 10/20/18 TIME: 17:41 24 HR Interval Summary Free Text/Dictation Patient is without change and offers no new complaints Detailed Summary Endocrine: no complaints Exam/Review of Systems Exam Vitals Vital Signs Date Temp Pulse Resp B/P (MAP) Pulse Ox O2 O2 Flow FiO2 Time Delivery Rate 10/20/18 99.2 102 22 103/76 98 Mechanical 16:00 (85) Ventilator 10/20/18 70 12:00 Intake and Output 10/19/18 10/19/18 10/20/18 1515:00 23:00 07:00 IntakeIntake Total 660 ml 570 ml 520 ml OutputOutput Total 825 ml 1075 ml 300 ml BalanceBalance -165 ml -505 ml 220 ml Exam No change in exam Results Result Diagram: 10/20/18 0501 10/20/18 0501 Results 24hrs Laboratory Tests Test 10/19/18 20:24 10/20/18 02:07 10/20/18 05:01 10/20/18 08:20 Bedside Glucose 184 178 184 White Blood Count 17.4 H Red Blood Count 3.41 L Hemoglobin 9.7 L Hematocrit 31.4 L Mean Corpuscular Volume 92.1 Mean Corpuscular 28.4 L Hemoglobin Mean Corpuscular 30.9 L Hemoglobin Concent Red Cell Distribution 18.6 H Width Platelet Count 457 H Mean Platelet Volume 10.9 H Immature Granulocytes % 4.300 H Neutrophils % 83.0 H Lymphocytes % 4.7 L Monocytes % 7.8 Eosinophils % 0.0 Basophils % 0.2 Nucleated Red Blood 0.0 Cells % Immature Granulocytes # 0.750 H Neutrophils # 14.4 H Lymphocytes # 0.8 Monocytes # 1.4 H Eosinophils # 0.0 Basophils # 0.0 Nucleated Red Blood 0.0 Cells # Sodium Level 133 L Potassium Level 4.7 Chloride Level 90 L Carbon Dioxide Level 37 H Anion Gap 6 Blood Urea Nitrogen 30 H Creatinine 0.50 L Est Glomerular Filtrat > 60 Rate mL/min Glucose Level 149 Calcium Level 5.9 *L Phosphorus Level 5.9 H Magnesium Level 1.7 Test 10/20/18 13:51 Bedside Glucose 170 Medications Medication Current Medications Acetaminophen (Tylenol Liquid) 650 mg Q4H PRN GTB MILD PAIN(1-3)OR ELEVATED TEMP Last administered on 10/16/18at 07:52; Admin Dose 650 MG; Start 10/09/18 at 14:00 Al Hydrox/Mg Hydrox/Simethicone (Mag-Al Plus) 15 ml Q6H PRN PO GASTROINTESTINAL UPSET Last administered on 10/17/18at 13:18; Admin Dose 15 ML; Start 10/09/18 at 14:00 Eye Lubricant (Artificial Tears Oph) 1 drop Q6H PRN BOTH EYES DRY EYES; Start 10/09/18 at 14:00 Bisacodyl (Dulcolax Supp) 10 mg DAILY PRN [place] CONSTIPATION; Start 10/09/18 at 14:00 Clonidine (Catapres) 0.1 mg DAILY PRN GTB ELEVATED BLOOD PRESSURE; Start 10/09/18 at 14:00 Diltiazem HCl (Cardizem Iv) 5 mg Q4 PRN IV ELEVATED HEART RATE Last administered on 10/18/18 01:09; Admin Dose 5 MG; Start 10/09/18 at 14:00 Diphenhydramine HCl (Benadryl Liquid Cup) 25 mg Q6 PRN GTB ITCHING Last administered on 10/17/18 23:27; Admin Dose 25 MG; Start 10/09/18 at 14:00 Duloxetine HCl (Cymbalta) 30 mg DAILY PO Last administered on 10/20/18 08:12; Admin Dose 30 MG; Start 10/10/18 at 09:00 Epoetin Arpan (Epogen (Esrd)) 10,000 units TuSa@1300 SC Last administered on 10/18/18 13:32; Admin Dose 10,000 UNITS; Start 10/11/18 at 13:00 Gabapentin (Neurontin Liquid) 400 mg Q8 GTB Last administered on 10/20/18 13:50; Admin Dose 400 MG; Start 10/09/18 at 15:30 Hydralazine HCl (Apresoline) 10 mg Q4H PRN IV ELEVATED BLOOD PRESSURE; Start 10/09/18 at 14:00 Hydromorphone HCl (Dilaudid) 4 mg Q4H PRN PO MODERATE PAIN LEVEL 7-10 Last administered on 10/20/18 17:28; Admin Dose 4 MG; Start 10/09/18 at 14:00 Hydroxychloroquine Sulfate (Plaquenil) 200 mg BID PO Last administered on 10/20/18 08:10; Admin Dose 200 MG; Start 10/09/18 at 21:00 Diagnostic Test (Pha) (Accu-Chek) 1 ea 02 XX Last administered on 10/20/18 02:03; Admin Dose 1 EA; Start 10/10/18 at 02:00 Insulin Aspart (Novolog Insulin Pen) NOVOLOG *CUSTOM* ALGORITHM Q6H SC Last administered on 10/20/18 13:53; Admin Dose 1 UNIT; Start 10/09/18 at 14:00 Lactobacillus Acidophilus (Florajen3 Capsule) 1 each BID GTB Last administered on 10/20/18 08:15; Admin Dose 1 EACH; Start 10/09/18 at 21:00 Lansoprazole (Prevacid) 30 mg BID@,18 GTB Last administered on 10/20/18 17:27; Admin Dose 30 MG; Start 10/09/18 at 18:00 Levetiracetam (Keppra Liquid) 500 mg BID GTB Last administered on 10/20/18 08:12; Admin Dose 500 MG; Start 10/09/18 at 21:00 Magnesium Oxide (Mag-Ox 400) 400 mg BID GTB Last administered on 10/20/18 08:10; Admin Dose 400 MG; Start 10/09/18 at 21:00 Metoclopramide HCl (Reglan) 10 mg TID IV Last administered on 10/20/18 13:51; Admin Dose 10 MG; Start 10/09/18 at 21:00 Miconazole Nitrate (Miconazole 2% Cr) 1 applic BID TOP Last administered on 10/20/18 08:16; Admin Dose 1 APPLIC; Start 10/09/18 at 21:00 Miconazole Nitrate (Miconazole 2% Cr) 1 applic Q12 PRN TOP rash; Start 10/09/18 at 14:00 Ondansetron HCl (Zofran Inj) 4 mg Q4H PRN IV NAUSEA AND/OR VOMITING Last administered on 10/19/18 16:37; Admin Dose 4 MG; Start 10/09/18 at 14:00 Polyethylene Glycol (Miralax) 17 gm DAILY PRN GTB CONSTIPATION; Start 10/09/18 at 14:00 Senna (Senokot) 2 tab Q8 PRN PO CONSTIPATION; Start 10/09/18 at 14:00 Trimethoprim/ Sulfamethoxazole (Bactrim Susp) 40 ml DAILY GTB Last administered on 10/20/18 08:13; Admin Dose 40 ML; Start 10/10/18 at 09:00 Zolpidem Tartrate (Ambien) 5 mg HS PRN PO INSOMNIA Last administered on 10/20/18 03:20; Admin Dose 5 MG; Start 10/09/18 at 14:00 Miscellaneous Information 1 ea NOTE XX ; Start 10/09/18 at 15:00 Glucose (Glutose) 15 gm Q15M PRN PO DECREASED GLUCOSE; Start 10/09/18 at 15:00 Glucose (Glutose) 22.5 gm Q15M PRN PO DECREASED GLUCOSE; Start 10/09/18 at 15:00 Dextrose (D50w Syringe) 25 ml Q15M PRN IV DECREASED GLUCOSE; Start 10/09/18 at 15:00 Dextrose (D50w Syringe) 50 ml Q15M PRN IV DECREASED GLUCOSE; Start 10/09/18 at 15:00 Glucagon (Glucagen) 1 mg Q15M PRN IM DECREASED GLUCOSE; Start 10/09/18 at 15:00 Glucose (Glutose) 15 gm Q15M PRN BUCCAL DECREASED GLUCOSE; Start 10/09/18 at 15:00 Sodium Chloride 500 ml @ 500 mls/hr Q1H PRN IV BLOOD PRESSURE SUPPORT Last administered on 10/10/18 07:59; Admin Dose 500 MLS/HR; Start 10/09/18 at 19:30 Albuterol (Ventolin Hfa) 4 puff Q6H RESP THERAPY INH Last administered on 10/20/18 09:33; Admin Dose 4 PUFF; Start 10/10/18 at 02:00 Ipratropium [place] (Atrovent Hfa) 4 puff Q6H RESP THERAPY INH Last administered on 10/20/18 09:33; Admin Dose 4 PUFF; Start 10/10/18 at 02:00 Methylprednisolone Sodium Succinate (Solu-Medrol) 40 mg Q8 IV Last administered on 10/20/18 13:50; Admin Dose 40 MG; Start 10/14/18 at 14:00 Quetiapine Fumarate (Seroquel) 50 mg BID GTB Last administered on 10/20/18 08 :10; Admin Dose 50 MG; Start 10/14/18 at 13:30 Lorazepam (Ativan) 1 mg Q4H PRN GTB AGITATION/ANXIETY Last administered on 10/19/18 17:35; Admin Dose 1 MG; Start 10/14/18 at 13:00 Lisinopril (Zestril) 2.5 mg DAILY PO Last administered on 10/18/18 08:28; Admin Dose 2.5 MG; Start 10/15/18 at 09:00; Status Hold Linagliptin (Tradjenta) 5 mg DAILY PO Last administered on 10/20/18 08:20; Admin Dose 5 MG; Start 10/16/18 at 10:30 Carvedilol (Coreg) 6.25 mg BID PO Last administered on 10/20/18 08:14; Admin Dose 6.25 MG; Start 10/17/18 at 21:00 Calcium Carbonate (Ca Carbonate) 1,250 mg TID GTB Last administered on 10/20/18 13:50; Admin Dose 1,250 MG; Start 10/17/18 at 14:00 Fentanyl (Duragesic 50 Mcg/Hr Patch) 1 patch Q72H TRANSDERM Last administered on 10/17/18 20:56; Admin Dose 1 PATCH; Start 10/17/18 at 20:30 Calcitriol (Rocaltrol) 0.25 mcg DAILY PO Last administered on 10/20/18 08:08; Admin Dose 0.25 MCG; Start 10/18/18 at 09:00 Lorazepam (Ativan) 2 mg Q6H GTB Last administered on 10/20/18 14:44; Admin Dose 2 MG; Start 10/20/18 at 15:00 Oxycodone/ Acetaminophen (Percocet (5/ 325)) 1 tab Q4H PRN PO MODERATE PAIN LEVEL 4-6 Last administered on 10/20/18 13:50; Admin Dose 1 TAB; Start 10/20/18 at 11:30 KEV ISSA MD Oct 20, 2018 17:44
[2018-10-20] MEDS ORDERED: CALCITRIOL 1 MCG INJ IV ONE (18:00)
[2018-10-20] MEDS ORDERED: CALCIUM GLUCONATE 10% 2 GM in DEXTROSE 5% 100 ML IVPB ONE (18:30)
--- NOTE | 2018-10-20 20:07 | CONS ---
Assessment/Plan Assessment/Plan Assessment/Plan (Daily) Interval hx: WBC 27.5.->31.8 Stool cx positive for VRE. Pt is on Vanco and followed by ID. Pt states he feels out of breath. No changes in CXR. On 70% FiO2. Down from yesterday. High anxiety. Tolerating tube feeds. Rectal tube. 1. Respiratory failure secondary to pneumonia versus interstitial pneumonitis from rheumatoid arthritis versus mild aspiration. -on Bactrim 2. Severe rheumatoid arthritis. 3. Quadriplegia. 4. Adrenal insufficiency. 5. Gastroparesis. -Reglan, denies nausea 6. Hypothyroidism. 7. Chronic pain syndrome. 8. Hypertension. 9. Diarrhea -VRE in stool -FOB neg 10. Leukocytosis secondary to steroids Swallow eval: Impression: Oropharyngeal dysphagia associated with reduced oropharyngeal strength/coordination, delayed timing of swallowing and reduced coordination of breath with swallow safety impacting swallow safety. Pt is not safe to initiate p.o intake and is at high risk of aspiration. Recommendation: 1. Initiate dysphagia therapy 3-5x per week for 1-2 weeks 2. Keep NPO+PEG tube feeds for primary means of nutrition/hydration/medication delivery 3. Anticipate need for in-line PMV evaluation one respiratory status improves and is stabilized 4. ongoing assessment and BOT and oropharyngeal strengthening exercises, aswell as pt/family education and counseling 5. Anticipate need for MBSS prior to initiation of p.o intake PLAN: ID recommendations Continue present care Nothing by mouth per swallow eval results Continue with tube feeds check residuals q 4 hours Continue Reglan. Aspiration precautions Consultation Date/Type/Reason Admit Date/Time Oct 09, 2018 at 12:16 Initial Consult Date 10/12/18 Requesting Provider: NOLA VIDAL MD Date/Time of Note DATE: 10/20/18 TIME: 20:06 24 HR Interval Summary Free Text/Dictation Patient has lot of anxiety. He is on FI O2 of 80%. No evidence of aspiration Exam/Review of Systems Exam Vitals Vital Signs Date Temp Pulse Resp B/P (MAP) Pulse Ox O2 O2 Flow FiO2 Time Delivery Rate 10/20/18 113 22 108/93 96 Mechanical 19:00 (98) Ventilator 10/20/18 60 16:50 10/20/18 99.2 16:00 Intake and Output 10/19/18 10/19/18 10/20/18 1515:00 23:00 07:00 IntakeIntake Total 660 ml 570 ml 520 ml OutputOutput Total 825 ml 1075 ml 300 ml BalanceBalance -165 ml -505 ml 220 ml Constitutional: alert, oriented Eyes: nl conjunctiva Respiratory: clear to auscultation, normal air movement, diminished breath sounds Genitourinary - Male: No nl penis, No nl scrotum, No CVA tenderness, No discharge, No other Extremities: normal pulses Results Result Diagram: 10/20/18 0501 10/20/18 0501 Results 24hrs Laboratory Tests Test 10/19/18 20:24 10/20/18 02:07 10/20/18 05:01 10/20/18 08:20 Bedside Glucose 184 178 184 White Blood Count 17.4 H Red Blood Count 3.41 L Hemoglobin 9.7 L Hematocrit 31.4 L Mean Corpuscular Volume 92.1 Mean Corpuscular 28.4 L Hemoglobin Mean Corpuscular 30.9 L Hemoglobin Concent Red Cell Distribution 18.6 H Width Platelet Count 457 H Mean Platelet Volume 10.9 H Immature Granulocytes % 4.300 H Neutrophils % 83.0 H Lymphocytes % 4.7 L Monocytes % 7.8 Eosinophils % 0.0 Basophils % 0.2 Nucleated Red Blood 0.0 Cells % Immature Granulocytes # 0.750 H Neutrophils # 14.4 H Lymphocytes # 0.8 Monocytes # 1.4 H Eosinophils # 0.0 Basophils # 0.0 Nucleated Red Blood 0.0 Cells # Sodium Level 133 L Potassium Level 4.7 Chloride Level 90 L Carbon Dioxide Level 37 H Anion Gap 6 Blood Urea Nitrogen 30 H Creatinine 0.50 L Est Glomerular Filtrat > 60 Rate mL/min Glucose Level 149 Calcium Level 5.9 *L Phosphorus Level 5.9 H Magnesium Level 1.7 Test 10/20/18 13:51 Bedside Glucose 170 Medications Medication Current Medications Acetaminophen (Tylenol Liquid) 650 mg Q4H PRN GTB MILD PAIN(1-3)OR ELEVATED TEMP Last administered on 10/16/18at 07:52; Admin Dose 650 MG; Start 10/09/18 at 14:00 Al Hydrox/Mg Hydrox/Simethicone (Mag-Al Plus) 15 ml Q6H PRN PO GASTROINTESTINAL UPSET Last administered on 10/17/18at 13:18; Admin Dose 15 ML; Start 10/09/18 at 14:00 Eye Lubricant (Artificial Tears Oph) 1 drop Q6H PRN BOTH EYES DRY EYES; Start 10/09/18 at 14:00 Bisacodyl (Dulcolax Supp) 10 mg DAILY PRN [place] CONSTIPATION; Start 10/09/18 at 14:00 Clonidine (Catapres) 0.1 mg DAILY PRN GTB ELEVATED BLOOD PRESSURE; Start 10/09/18 at 14:00 Diltiazem HCl (Cardizem Iv) 5 mg Q4 PRN IV ELEVATED HEART RATE Last administered on 10/18/18 01:09; Admin Dose 5 MG; Start 10/09/18 at 14:00 Diphenhydramine HCl (Benadryl Liquid Cup) 25 mg Q6 PRN GTB ITCHING Last administered on 10/17/18 23:27; Admin Dose 25 MG; Start 10/09/18 at 14:00 Duloxetine HCl (Cymbalta) 30 mg DAILY PO Last administered on 10/20/18 08:12; Admin Dose 30 MG; Start 10/10/18 at 09:00 Epoetin Arpan (Epogen (Esrd)) 10,000 units TuSa@1300 SC Last administered on 10/18/18 13:32; Admin Dose 10,000 UNITS; Start 10/11/18 at 13:00 Gabapentin (Neurontin Liquid) 400 mg Q8 GTB Last administered on 10/20/18 13 :50; Admin Dose 400 MG; Start 10/09/18 at 15:30 Hydralazine HCl (Apresoline) 10 mg Q4H PRN IV ELEVATED BLOOD PRESSURE; Start 10/09/18 at 14:00 Hydromorphone HCl (Dilaudid) 4 mg Q4H PRN PO MODERATE PAIN LEVEL 7-10 Last administered on 10/20/18 17:28; Admin Dose 4 MG; Start 10/09/18 at 14:00 Hydroxychloroquine Sulfate (Plaquenil) 200 mg BID PO Last administered on 10/20/18 08:10; Admin Dose 200 MG; Start 10/09/18 at 21:00 Diagnostic Test (Pha) (Accu-Chek) 1 ea 02 XX Last administered on 10/20/18 02:03; Admin Dose 1 EA; Start 10/10/18 at 02:00 Insulin Aspart (Novolog Insulin Pen) NOVOLOG *CUSTOM* ALGORITHM Q6H SC Last administered on 10/20/18 13:53; Admin Dose 1 UNIT; Start 10/09/18 at 14:00 Lactobacillus Acidophilus (Florajen3 Capsule) 1 each BID GTB Last administered on 10/20/18 08:15; Admin Dose 1 EACH; Start 10/09/18 at 21:00 Lansoprazole (Prevacid) 30 mg BID@06,18 GTB Last administered on 10/20/18 17:27; Admin Dose 30 MG; Start 10/09/18 at 18:00 Levetiracetam (Keppra Liquid) 500 mg BID GTB Last administered on 10/20/18 08:12; Admin Dose 500 MG; Start 10/09/18 at 21:00 Magnesium Oxide (Mag-Ox 400) 400 mg BID GTB Last administered on 10/20/18 08:10; Admin Dose 400 MG; Start 10/09/18 at 21:00 Metoclopramide HCl (Reglan) 10 mg TID IV Last administered on 10/20/18 13:51; A dmin Dose 10 MG; Start 10/09/18 at 21:00 Miconazole Nitrate (Miconazole 2% Cr) 1 applic BID TOP Last administered on 10/20/18 08:16; Admin Dose 1 APPLIC; Start 10/09/18 at 21:00 Miconazole Nitrate (Miconazole 2% Cr) 1 applic Q12 PRN TOP rash; Start 10/09/18 at 14:00 Ondansetron HCl (Zofran Inj) 4 mg Q4H PRN IV NAUSEA AND/OR VOMITING Last administered on 10/19/18 16:37; Admin Dose 4 MG; Start 10/09/18 at 14:00 Polyethylene Glycol (Miralax) 17 gm DAILY PRN GTB CONSTIPATION; Start 10/09/18 at 14:00 Senna (Senokot) 2 tab Q8 PRN PO CONSTIPATION; Start 10/09/18 at 14:00 Trimethoprim/ Sulfamethoxazole (Bactrim Susp) 40 ml DAILY GTB Last administered on 10/20/18 08:13; Admin Dose 40 ML; Start 10/10/18 at 09:00 Zolpidem Tartrate (Ambien) 5 mg HS PRN PO INSOMNIA Last administered on 10/20/18 03:20; Admin Dose 5 MG; Start 10/09/18 at 14:00 Miscellaneous Information 1 ea NOTE XX ; Start 10/09/18 at 15:00 Glucose (Glutose) 15 gm Q15M PRN PO DECREASED GLUCOSE; Start 10/09/18 at 15:00 Glucose (Glutose) 22.5 gm Q15M PRN PO DECREASED GLUCOSE; Start 10/09/18 at 15:00 Dextrose (D50w Syringe) 25 ml Q15M PRN IV DECREASED GLUCOSE; Start 10/09/18 at 15:00 Dextrose (D50w Syringe) 50 ml Q15M PRN IV DECREASED GLUCOSE; Start 10/09/18 at 15:00 Glucagon (Glucagen) 1 mg Q15M PRN IM DECREASED GLUCOSE; Start 10/09/18 at 15:00 Glucose (Glutose) 15 gm Q15M PRN BUCCAL DECREASED GLUCOSE; Start 10/09/18 at 15:00 Sodium Chloride 500 ml @ 500 mls/hr Q1H PRN IV BLOOD PRESSURE SUPPORT Last administered on 10/10/18 07:59; Admin Dose 500 MLS/HR; Start 10/09/18 at 19:30 Albuterol (Ventolin Hfa) 4 puff Q6H RESP THERAPY INH Last administered on 10/20/18 19:43; Admin Dose 4 PUFF; Start 10/10/18 at 02:00 Ipratropium [place] (Atrovent Hfa) 4 puff Q6H RESP THERAPY INH Last administered on 10/20/18 19:43; Admin Dose 4 PUFF; Start 10/10/18 at 02:00 Methylprednisolone Sodium Succinate (Solu-Medrol) 40 mg Q8 IV Last administered on 10/20/18 13:50; Admin Dose 40 MG; Start 10/14/18 at 14:00 Quetiapine Fumarate (Seroquel) 50 mg BID GTB Last administered on 10/20/18 08:10; Admin Dose 50 MG; Start 10/14/18 at 13:30 Lorazepam (Ativan) 1 mg Q4H PRN GTB AGITATION/ANXIETY Last administered on 10/19/18 17:35; Admin Dose 1 MG; Start 10/14/18 at 13:00 Lisinopril (Zestril) 2.5 mg DAILY PO Last administered on 10/18/18 08:28; Admin Dose 2.5 MG; Start 10/15/18 at 09:00; Status Hold Linagliptin (Tradjenta) 5 mg DAILY PO Last administered on 10/20/18 08:20; Admin Dose 5 MG; Start 10/16/18 at 10:30 Carvedilol (Coreg) 6.25 mg BID PO Last administered on 10/20/18 08:14; Admin Dose 6.25 MG; Start 10/17/18 at 21:00 Calcium Carbonate (Ca Carbonate) 1,250 mg TID GTB Last administered on 10/20/18 13:50; Admin Dose 1,250 MG; Start 10/17/18 at 14:00 Fentanyl (Duragesic 50 Mcg/Hr Patch) 1 patch Q72H TRANSDERM Last administered on 10/17/18 20:56; Admin Dose 1 PATCH; Start 10/17/18 at 20:30 Lorazepam (Ativan) 2 mg Q6H GTB Last administered on 10/20/18 14:44; Admin Dose 2 MG; Start 10/20/18 at 15:00 Oxycodone/ Acetaminophen (Percocet (5/ 325)) 1 tab Q4H PRN PO MODERATE PAIN LEVEL 4-6 Last administered on 10/20/18 13:50; Admin Dose 1 TAB; Start 10/20/18 at 11:30 Calcitriol (Rocaltrol) 0.5 mcg BID PO ; Start 10/20/18 at 21:00 Calcium Gluconate 2 gm/Dextrose 120 ml @ 60 mls/hr ONCE ONCE IVPB ; Start 10/20/18 at 18:30; Stop 10/20/18 at 20:29 BHAVIK RUBIO MD Oct 20, 2018 20:07
[2018-10-20] MEDS: FENTAnyl PATCH 50 MCG/HR TRANSDERM SCH (23:24)
[2018-10-21] VITALS (35 sets, daily range): BP systolic 106–161; BP diastolic 68–108; PULSE 98–126; RESP 19–34
[2018-10-21] MEDS: ALBUTEROL HFA 8 GM INHALER INH SCH ×4 (01:53→20:44)
[2018-10-21] MEDS: IPRATROPIUM (HFA) 12.9 GM INHALER INH SCH ×4 (01:53→20:44)
[2018-10-21] MEDS: ACCU-CHEK XX SCH (02:01)
[2018-10-21] MEDS: LORAZEPAM 1 MG TAB GTB SCH ×4 (02:01→21:13)
[2018-10-21] MEDS: INSULIN ASPART [NOVOLOG] 3 ML PEN SC SCH ×4 (02:27→19:55)
[2018-10-21] MEDS: ZOLPIDEM 5 MG TAB PO PRN (02:34)
[2018-10-21] MEDS: HYDROmorphONE 2 MG TAB PO PRN ×4 (02:37→21:15)
[2018-10-21] MEDS: LANSOPRAZOLE 30 MG CAP GTB SCH ×2 (05:31→17:32)
[2018-10-21] MEDS: METHYLPREDNISOLONE 40 MG INJ IV SCH ×3 (05:32→21:22)
[2018-10-21] MEDS: GABAPENTIN (50 MG/ML PO SYG) GTB SCH ×3 (05:32→21:22)
--- NOTE | 2018-10-21 07:24 | CONS ---
Assessment/Plan Assessment/Plan Assessment/Plan (Daily) Ventilator setting; AC of 20, tidal volume 400, PEEP of 5, 60% FiO2. Assessment recommendations; 1. Patient with a history of ARDS and severe hypoxemia admitted to ICU for possibly recurrent pneumonia, patient now off systemic antibiotics with stable clinical status. 2. History of incomplete quadriplegia. 3. Stable seizure disorder. 4. Underlying anxiety disorder. 5. History of VATs. Continue current supportive care. Consider transfer to rehab center. Prognosis is very poor. Consultation Date/Type/Reason Admit Date/Time Oct 09, 2018 at 12:16 Initial Consult Date 10/12/18 Type of Consult Pulmonary/critical care Patient's condition is stable. Remains completely awake and alert. Has remained hemodynamically stable. Patient also has been switched over to volume control ventilation from pressure-controlled mode. General exam; middle-aged male, on ventilator via tracheostomy, awake and alert. Watching television. Currently in no distress. Area Requesting Provider: NOLA VIDAL MD Date/Time of Note DATE: 10/21/18 TIME: 07:21 24 HR Interval Summary Free Text/Dictation Patient's condition is critical but stable. Still on 60% FiO2. Patient has remained hemodynamically stable. General exam; middle-aged male, on ventilator via tracheostomy, awake, currently no distress. Exam/Review of Systems Exam Vitals Vital Signs Date Temp Pulse Resp B/P (MAP) Pulse Ox O2 O2 Flow FiO2 Time Delivery Rate 10/21/18 107 23 117/83 100 Mechanical 07:00 (94) Ventilator Trach Collar 10/21/18 60 05:52 10/21/18 99.2 05:00 Intake and Output 10/20/18 10/20/18 10/21/18 1414:59 22:59 06:59 IntakeIntake Total 370 ml 690 ml 420 ml OutputOutput Total 655 ml 555 ml 725 ml BalanceBalance -285 ml 135 ml -305 ml Exam HEENT exam; supple neck, no JVD. No lymphadenopathy. Midline trachea. No thyromegaly. Patient is edentulous. Tracheostomy in place. Insertion site is clean. Chest exam; diminished breath sounds bilaterally. S1-S2 audible, no murmurs. Regular rhythm. Abdomen exam; soft, G-tube in place. No organomegaly. Bowel sounds audible. Extremity exam; no edema. [employer] exam; patient is awake and alert. Able to move right upper extremity to some extent. Exhibiting stable incomplete quadriplegia. Results Result Diagram: 10/21/18 0452 10/21/18 0452 Results 24hrs Laboratory Tests Test 10/20/18 08:20 10/20/18 13:51 10/20/18 20:41 10/21/18 01:57 Bedside Glucose 184 170 171 185 Test 10/21/18 04:52 White Blood Count 24.6 #H Red Blood Count 3.45 L Hemoglobin 9.8 L Hematocrit 31.9 L Mean Corpuscular Volume 92.5 Mean Corpuscular 28.4 L Hemoglobin Mean Corpuscular 30.7 L Hemoglobin Concent Red Cell Distribution 18.6 H Width Platelet Count 490 H Mean Platelet Volume 11.0 H Immature Granulocytes % 3.100 H Neutrophils % 84.4 H Lymphocytes % 4.3 L Monocytes % 7.9 Eosinophils % 0.0 Basophils % 0.3 Nucleated Red Blood 0.0 Cells % Immature Granulocytes # 0.750 H Neutrophils # 20.7 H Lymphocytes # 1.1 Monocytes # 1.9 H Eosinophils # 0.0 Basophils # 0.1 Nucleated Red Blood 0.0 Cells # Sodium Level 135 Potassium Level 4.4 Chloride Level 92 L Carbon Dioxide Level 35 H Anion Gap 8 Blood Urea Nitrogen 33 H Creatinine 0.43 L Est Glomerular Filtrat > 60 Rate mL/min Glucose Level 183 Calcium Level 6.9 L Phosphorus Level 4.8 Magnesium Level 1.6 L Medications Medication Current Medications Acetaminophen (Tylenol Liquid) 650 mg Q4H PRN GTB MILD PAIN(1-3)OR ELEVATED TEMP Last administered on 10/16/18at 07:52; Admin Dose 650 MG; Start 10/09/18 at 14:00 Al Hydrox/Mg Hydrox/Simethicone (Mag-Al Plus) 15 ml Q6H PRN PO GASTROINTESTINAL UPSET Last administered on 10/17/18at 13:18; Admin Dose 15 ML; Start 10/09/18 at 14:00 Eye Lubricant (Artificial Tears Oph) 1 drop Q6H PRN BOTH EYES DRY EYES; Start 10/09/18 at 14:00 Bisacodyl (Dulcolax Supp) 10 mg DAILY PRN [place] CONSTIPATION; Start 10/09/18 at 14:00 Clonidine (Catapres) 0.1 mg DAILY PRN GTB ELEVATED BLOOD PRESSURE; Start 10/09/18 at 14:00 Diltiazem HCl (Cardizem Iv) 5 mg Q4 PRN IV ELEVATED HEART RATE Last administered on 10/18/18 01:09; Admin Dose 5 MG; Start 10/09/18 at 14:00 Diphenhydramine HCl (Benadryl Liquid Cup) 25 mg Q6 PRN GTB ITCHING Last administered on 10/17/18 23:27; Admin Dose 25 MG; Start 10/09/18 at 14:00 Duloxetine HCl (Cymbalta) 30 mg DAILY PO Last administered on 10/20/18 08:12; Admin Dose 30 MG; Start 10/10/18 at 09:00 Epoetin Arpan (Epogen (Esrd)) 10,000 units TuSa@1300 SC Last administered on 10/18/18 13:32; Admin Dose 10,000 UNITS; Start 10/11/18 at 13:00 Gabapentin (Neurontin Liquid) 400 mg Q8 GTB Last administered on 10/21/18 05:32; Admin Dose 400 MG; Start 10/09/18 at 15:30 Hydralazine HCl (Apresoline) 10 mg Q4H PRN IV ELEVATED BLOOD PRESSURE; Start 10/09/18 at 14:00 Hydromorphone HCl (Dilaudid) 4 mg Q4H PRN PO MODERATE PAIN LEVEL 7-10 Last administered on 10/21/18 02:37; Admin Dose 4 MG; Start 10/09/18 at 14:00 Hydroxychloroquine Sulfate (Plaquenil) 200 mg BID PO Last administered on 10/20/18 20:51; Admin Dose 200 MG; Start 10/09/18 at 21:00 Diagnostic Test (Pha) (Accu-Chek) 1 ea 02 XX Last administered on 10/21/18 02:01; Admin Dose 1 EA; Start 10/10/18 at 02:00 Insulin Aspart (Novolog Insulin Pen) NOVOLOG *CUSTOM* ALGORITHM Q6H SC Last administered on 10/21/18 02:27; Admin Dose 1 UNIT; Start 10/09/18 at 14:00 Lactobacillus Acidophilus (Florajen3 Capsule) 1 each BID GTB Last administered on 10/20/18 20:51; Admin Dose 1 EACH; Start 10/09/18 at 21:00 Lansoprazole (Prevacid) 30 mg BID@,18 GTB Last administered on 10/21/18 05:31; Admin Dose 30 MG; Start 10/09/18 at 18:00 Levetiracetam (Keppra Liquid) 500 mg BID GTB Last administered on 10/20/18 20:52; Admin Dose 500 MG; Start 10/09/18 at 21:00 Magnesium Oxide (Mag-Ox 400) 400 mg BID GTB Last administered on 10/20/18 20:52; Admin Dose 400 MG; Start 10/09/18 at 21:00 Metoclopramide HCl (Reglan) 10 mg TID IV Last administered on 10/20/18 20:52; Admin Dose 10 MG; Start 10/09/18 at 21:00 Miconazole Nitrate (Miconazole 2% Cr) 1 applic BID TOP Last administered on 10/20/18 21:04; Admin Dose 1 APPLIC; Start 10/09/18 at 21:00 Miconazole Nitrate (Miconazole 2% Cr) 1 applic Q12 PRN TOP rash; Start 10/09/18 at 14:00 Ondansetron HCl (Zofran Inj) 4 mg Q4H PRN IV NAUSEA AND/OR VOMITING Last administered on 10/19/18 16:37; Admin Dose 4 MG; Start 10/09/18 at 14:00 Polyethylene Glycol (Miralax) 17 gm DAILY PRN GTB CONSTIPATION; Start 10/09/18 at 14:00 Senna (Senokot) 2 tab Q8 PRN PO CONSTIPATION; Start 10/09/18 at 14:00 Trimethoprim/ Sulfamethoxazole (Bactrim Susp) 40 ml DAILY GTB Last administered on 10/20/18 08:13; Admin Dose 40 ML; Start 10/10/18 at 09:00 Zolpidem Tartrate (Ambien) 5 mg HS PRN PO INSOMNIA Last administered on 10/21/18 02:34; Admin Dose 5 MG; Start 10/09/18 at 14:00 Miscellaneous Information 1 ea NOTE XX ; Start 10/09/18 at 15:00 Glucose (Glutose) 15 gm Q15M PRN PO DECREASED GLUCOSE; Start 10/09/18 at 15:00 Glucose (Glutose) 22.5 gm Q15M PRN PO DECREASED GLUCOSE; Start 10/09/18 at 15:00 Dextrose (D50w Syringe) 25 ml Q15M PRN IV DECREASED GLUCOSE; Start 10/09/18 at 15:00 Dextrose (D50w Syringe) 50 ml Q15M PRN IV DECREASED GLUCOSE; Start 10/09/18 at 15:00 Glucagon (Glucagen) 1 mg Q15M PRN IM DECREASED GLUCOSE; Start 10/09/18 at 15:00 Glucose (Glutose) 15 gm Q15M PRN BUCCAL DECREASED GLUCOSE; Start 10/09/18 at 15:00 Sodium Chloride 500 ml @ 500 mls/hr Q1H PRN IV BLOOD PRESSURE SUPPORT Last administered on 10/10/18at 07:59; Admin Dose 500 MLS/HR; Start 10/09/18 at 19:30 Albuterol (Ventolin Hfa) 4 puff Q6H RESP THERAPY INH Last administered on 10/21/18 01:53; Admin Dose 4 PUFF; Start 10/10/18 at 02:00 Ipratropium [place] (Atrovent Hfa) 4 puff Q6H RESP THERAPY INH Last administered on 10/21/18 01:53; Admin Dose 4 PUFF; Start 10/10/18 at 02:00 Methylprednisolone Sodium Succinate (Solu-Medrol) 40 mg Q8 IV Last administered on 10/21/18 05:32; Admin Dose 40 MG; Start 10/14/18 at 14:00 Quetiapine Fumarate (Seroquel) 50 mg BID GTB Last administered on 10/20/18 20:51; Admin Dose 50 MG; Start 10/14/18 at 13:30 Lorazepam (Ativan) 1 mg Q4H PRN GTB AGITATION/ANXIETY Last administered on 10/19/18 17:35; Admin Dose 1 MG; Start 10/14/18 at 13:00 Lisinopril (Zestril) 2.5 mg DAILY PO Last administered on 10/18/18 08:28; Admin Dose 2.5 MG; Start 10/15/18 at 09:00; Status Hold Linagliptin (Tradjenta) 5 mg DAILY PO Last administered on 10/20/18 08:20; Admin Dose 5 MG; Start 10/16/18 at 10:30 Carvedilol (Coreg) 6.25 mg BID PO Last administered on 10/20/18 20:51; Admin Dose 6.25 MG; Start 10/17/18 at 21:00 Calcium Carbonate (Ca Carbonate) 1,250 mg TID GTB Last administered on 10/20/18 20:52; Admin Dose 1,250 MG; Start 10/17/18 at 14:00 Fentanyl (Duragesic 50 Mcg/Hr Patch) 1 patch Q72H TRANSDERM Last administered on 10/20/18 23:24; Admin Dose 1 PATCH; Start 10/17/18 at 20:30 Lorazepam (Ativan) 2 mg Q6H GTB Last administered on 10/21/18 02:01; Admin Dose 2 MG; Start 10/20/18 at 15:00 Oxycodone/ Acetaminophen (Percocet (5/ 325)) 1 tab Q4H PRN PO MODERATE PAIN LEVEL 4-6 Last administered on 10/20/18 13:50; Admin Dose 1 TAB; Start 10/20/18 at 11:30 Calcitriol (Rocaltrol) 0.5 mcg BID PO Last administered on 10/20/18 20:52; Admin Dose 0.5 MCG; Start 10/20/18 at 21:00 PILAR BERGER 8, 2019 07:24
[2018-10-21] MEDS ORDERED: MAGNESIUM SULFATE 2 GM/50 ML 50 ML IVPB ONE (08:00)
[2018-10-21] MEDS: BALSAM PERU/CASTOR OIL 60 GM TUBE TOP SCH ×2 (08:44→21:15)
[2018-10-21] MEDS: CA CARBONATE (250 MG/ML) 5ML CUP GTB SCH ×3 (08:44→21:13)
[2018-10-21] MEDS: TRIMETHOPRIM/SULFAMETHOX (PO SYG) GTB SCH (08:44)
[2018-10-21] MEDS: LEVETIRACETAM (100 MG/ML) 5ML CUP GTB SCH ×2 (08:44→21:13)
[2018-10-21] MEDS: MICONAZOLE 2% 30 GM CR TOP SCH ×2 (08:44→21:15)
[2018-10-21] MEDS: METOCLOPRAMIDE 10 MG INJ IV SCH ×3 (08:44→21:13)
[2018-10-21] MEDS: DULOXETINE 30 MG CAP DR PO SCH (08:45)
[2018-10-21] MEDS: MAGNESIUM OXIDE 400 MG TAB GTB SCH ×2 (08:45→21:13)
[2018-10-21] MEDS: CALCITRIOL 0.25 MCG CAP PO SCH ×2 (08:45→21:30)
[2018-10-21] MEDS: QUETIAPINE 25 MG TAB GTB SCH (08:45)
[2018-10-21] MEDS: HYDROXYCHLOROQUINE 200 MG TAB PO SCH ×2 (08:45→21:14)
[2018-10-21] MEDS: L ACIDOPHIL/B LACTIS/B LONGUM CAPSULE GTB SCH ×2 (08:45→21:30)
[2018-10-21] MEDS: LINAGLIPTIN 5 MG TABLET PO SCH (08:49)
--- NOTE | 2018-10-21 09:21 | PN ---
DATE: 10/21/2018 SUBJECTIVE: The patient remains in serious, but stable condition. The FIO2 is stable. No other janette nts noted. OBJECTIVE: VITAL SIGNS: Blood pressure is 117/83, respirations 23, pulse 107, temperature 99.2. HEENT: Head is normocephalic. NECK: Supple. HEART: Regular rate. LUNGS: Show diminished breath sounds at the base. ABDOMEN: Soft, nontender to palpation without rebound or guarding. EXTREMITIES: Negative for clubbing, cyanosis, no edema. DERMATOLOGIC: No rashes. MUSCULOSKELETAL: No joint effusion. NEUROLOGIC: No change in exam. MEDICATIONS: The patient's medications have been reviewed. LABORATORY DATA: Shows a sodium 135, potassium 4.4, BUN 23, creatinine 0.43, magnesium 1.6. White c ount 24.6, hemoglobin 9.8, platelet count is 490. ASSESSMENT AND PLAN: 1. Hyperkalemia. Etiology is multifactorial, resolved. We will continue to monitor. Continue curr ent tube feedings. 2. Mild hypernatremia. Etiology is multifactorial, improved after adjusting free water flushes. 3. Nonoliguric acute kidney injury, etiology is secondary to hemodynamics. Renal function is improv ed. Continue to monitor. 4. Mineral bone disorder. The patient is status post pamidronate for underlying hypercalcemia. The patient's calcium levels have been improving. Continue vitamin D analogs, calcium carbonate. 5. Ventilator-dependent respiratory failure. Vent settings and ABG was reviewed. Continue to monit or. 6. Adrenal insufficiency. Continue Cortef. 7. Dysphagia. Continue tube feeding. 8. Sepsis secondary to pneumonia. The patient is completing antibiotic course. 9. Hypertension. Continue to monitor. 10. Tachyarrhythmia. Continue medical management. 11. Chronic pain syndrome. 12. Seizure disorder. Continue medical management. 13. Hypomagnesemia. We will replace with magnesium sulfate. Dictated By: UNA ROY DO NR/NTS Conf#: [id number] DID#: [id number] CC: DALTON DURBIN MD; NOLA VIDAL MD;*EndCC*
--- NOTE | 2018-10-21 10:59 | CONS ---
Assessment/Plan Assessment/Plan Hospital Course (Demo Recall) IMPRESSION: 1. Tachycardia at this time in the setting of fevers and respiratory distress, most consistent with sinus tachycardia likely driving this process. 2. Hypertension with borderline hypotension at this time. -still borderline Hotn 3. Abnormal electrocardiogram at baseline. 4. Chronic respiratory failure, status post tracheostomy.-weaning vent support 5. Dysphagia, status post G-tube. 6. Quadriplegia. 7. Renal insufficiency, on steroids. 8. Chronic obstructive pulmonary disease. 9. Rheumatoid arthritis. 10. Chronic kidney disease. 11. Diabetes mellitus. 12.Adrenal insufficiency 14. cardiomyopathy-EF 35-40% by echo this admit Recc -ICU -Vent support as necessary -Follow volume status closely -Continue abx's and f/u cx data -continue steroids -Contineu low dose BB and resume low dose afterload reduction with ACEI -s/p dose IVP digoxin with reasonable HR control Consultation Date/Type/Reason Admit Date/Time Oct 09, 2018 at 12:16 Initial Consult Date 10/09/18 Type of Consult Cardiology Reason for Consultation tachycardia Requesting Provider: NOLA VIDAL MD Date/Time of Note DATE: 10/21/18 TIME: 10:54 Exam/Review of Systems Vital Signs Vitals Vital Signs Date Temp Pulse Resp B/P (MAP) Pulse Ox O2 O2 Flow FiO2 Time Delivery Rate 10/21/18 106 23 110/79 98 Mechanical 10:00 (89) Ventilator 10/21/18 60 08:00 10/21/18 98.2 08:00 Intake and Output 10/20/18 10/20/18 10/21/18 1515:00 23:00 07:00 IntakeIntake Total 370 ml 740 ml 370 ml OutputOutput Total 450 ml 535 ml 725 ml BalanceBalance -80 ml 205 ml -355 ml Exam Exam Review of Systems: CONSTITUTIONAL: No fevers, chills. PULMONARY: trached CARDIOVASCULAR: No chest pain/palpitations GASTROINTESTINAL: No nausea/vomiting. GENITOURINARY: No hematuria/dysuria. MUSCULOSKELETAL: No myagias/arthalgias. PSYCHIATRIC: The patient denies depression. NEUROLOGIC: Generalized weakness Constitutional: alert Psych: no complaints Head: normocephalic ENMT: mucosa pink and moist Neck: supple, jvd Respiratory: diminished breath sounds Cardiovascular: regular rate and rhythm Gastrointestinal: soft, non-tender Musculoskeletal: muscle tone (normal) Extremities: edema (none) Neurological: other Labs Result Diagram: 10/21/18 0452 10/21/18 0452 Results 24hrs Laboratory Tests Test 10/20/18 13:51 10/20/18 20:41 10/21/18 01:57 10/21/18 04:52 Bedside Glucose 170 171 185 White Blood Count 24.6 #H Red Blood Count 3.45 L Hemoglobin 9.8 L Hematocrit 31.9 L Mean Corpuscular Volume 92.5 Mean Corpuscular 28.4 L Hemoglobin Mean Corpuscular 30.7 L Hemoglobin Concent Red Cell Distribution 18.6 H Width Platelet Count 490 H Mean Platelet Volume 11.0 H Immature Granulocytes % 3.100 H Neutrophils % 84.4 H Lymphocytes % 4.3 L Monocytes % 7.9 Eosinophils % 0.0 Basophils % 0.3 Nucleated Red Blood 0.0 Cells % Immature Granulocytes # 0.750 H Neutrophils # 20.7 H Lymphocytes # 1.1 Monocytes # 1.9 H Eosinophils # 0.0 Basophils # 0.1 Nucleated Red Blood 0.0 Cells # Sodium Level 135 Potassium Level 4.4 Chloride Level 92 L Carbon Dioxide Level 35 H Anion Gap 8 Blood Urea Nitrogen 33 H Creatinine 0.43 L Est Glomerular Filtrat > 60 Rate mL/min Glucose Level 183 Calcium Level 6.9 L Phosphorus Level 4.8 Magnesium Level 1.6 L Thyroid Stimulating 3.860 Hormone (TSH) Test 10/21/18 08:47 Bedside Glucose 163 Medications Medications Current Medications Acetaminophen (Tylenol Liquid) 650 mg Q4H PRN GTB MILD PAIN(1-3)OR ELEVATED TEMP Last administered on 10/16/18at 07:52; Admin Dose 650 MG; Start 10/09/18 at 14:00 Al Hydrox/Mg Hydrox/Simethicone (Mag-Al Plus) 15 ml Q6H PRN PO GASTROINTESTINAL UPSET Last administered on 10/17/18at 13:18; Admin Dose 15 ML; Start 10/09/18 at 14:00 Eye Lubricant (Artificial Tears Oph) 1 drop Q6H PRN BOTH EYES DRY EYES; Start 10/09/18 at 14:00 Bisacodyl (Dulcolax Supp) 10 mg DAILY PRN [place] CONSTIPATION; Start 10/09/18 at 14:00 Clonidine (Catapres) 0.1 mg DAILY PRN GTB ELEVATED BLOOD PRESSURE; Start 10/09/18 at 14:00 Diltiazem HCl (Cardizem Iv) 5 mg Q4 PRN IV ELEVATED HEART RATE Last administered on 10/18/18 01:09; Admin Dose 5 MG; Start 10/09/18 at 14:00 Diphenhydramine HCl (Benadryl Liquid Cup) 25 mg Q6 PRN GTB ITCHING Last administered on 10/17/18 23:27; Admin Dose 25 MG; Start 10/09/18 at 14:00 Duloxetine HCl (Cymbalta) 30 mg DAILY PO Last administered on 10/21/18 08:45; Admin Dose 30 MG; Start 10/10/18 at 09:00 Epoetin Arpan (Epogen (Esrd)) 10,000 units TuSa@1300 SC Last administered on 10/18/18 13:32; Admin Dose 10,000 UNITS; Start 10/11/18 at 13:00 Gabapentin (Neurontin Liquid) 400 mg Q8 GTB Last administered on 10/21/18 05:32; Admin Dose 400 MG; Start 10/09/18 at 15:30 Hydralazine HCl (Apresoline) 10 mg Q4H PRN IV ELEVATED BLOOD PRESSURE; Start 10/09/18 at 14:00 Hydromorphone HCl (Dilaudid) 4 mg Q4H PRN PO MODERATE PAIN LEVEL 7-10 Last administered on 10/21/18 08:49; Admin Dose 4 MG; Start 10/09/18 at 14:00 Hydroxychloroquine Sulfate (Plaquenil) 200 mg BID PO Last administered on 10/21/18 08:45; Admin Dose 200 MG; Start 10/09/18 at 21:00 Diagnostic Test (Pha) (Accu-Chek) 1 ea 02 XX Last administered on 10/21/18 02:01; Admin Dose 1 EA; Start 10/10/18 at 02:00 Insulin Aspart (Novolog Insulin Pen) NOVOLOG *CUSTOM* ALGORITHM Q6H SC Last administered on 10/21/18 10:12; Admin Dose 1 UNIT; Start 10/09/18 at 14:00 Lactobacillus Acidophilus (Florajen3 Capsule) 1 each BID GTB Last administered on 10/21/18 08:45; Admin Dose 1 EACH; Start 10/09/18 at 21:00 Lansoprazole (Prevacid) 30 mg BID@,18 GTB Last administered on 10/21/18 05:31; Admin Dose 30 MG; Start 10/09/18 at 18:00 Levetiracetam (Keppra Liquid) 500 mg BID GTB Last administered on 10/21/18 08:44; Admin Dose 500 MG; Start 10/09/18 at 21:00 Magnesium Oxide (Mag-Ox 400) 400 mg BID GTB Last administered on 10/21/18 08:45; Admin Dose 400 MG; Start 10/09/18 at 21:00 Metoclopramide HCl (Reglan) 10 mg TID IV Last administered on 10/21/18 08:44; Admin Dose 10 MG; Start 10/09/18 at 21:00 Miconazole Nitrate (Miconazole 2% Cr) 1 applic BID TOP Last administered on 10/21/18 08:44; Admin Dose 1 APPLIC; Start 10/09/18 at 21:00 Miconazole Nitrate (Miconazole 2% Cr) 1 applic Q12 PRN TOP rash; Start 10/09/18 at 14:00 Ondansetron HCl (Zofran Inj) 4 mg Q4H PRN IV NAUSEA AND/OR VOMITING Last administered on 10/19/18 16:37; Admin Dose 4 MG; Start 10/09/18 at 14:00 Polyethylene Glycol (Miralax) 17 gm DAILY PRN GTB CONSTIPATION; Start 10/09/18 at 14:00 Senna (Senokot) 2 tab Q8 PRN PO CONSTIPATION; Start 10/09/18 at 14:00 Trimethoprim/ Sulfamethoxazole (Bactrim Susp) 40 ml DAILY GTB Last administered on 10/21/18 08:44; Admin Dose 40 ML; Start 10/10/18 at 09:00 Zolpidem Tartrate (Ambien) 5 mg HS PRN PO INSOMNIA Last administered on 10/21/18 02:34; Admin Dose 5 MG; Start 10/09/18 at 14:00 Miscellaneous Information 1 ea NOTE XX ; Start 10/09/18 at 15:00 Glucose (Glutose) 15 gm Q15M PRN PO DECREASED GLUCOSE; Start 10/09/18 at 15:00 Glucose (Glutose) 22.5 gm Q15M PRN PO DECREASED GLUCOSE; Start 10/09/18 at 15:00 Dextrose (D50w Syringe) 25 ml Q15M PRN IV DECREASED GLUCOSE; Start 10/09/18 at 15:00 Dextrose (D50w Syringe) 50 ml Q15M PRN IV DECREASED GLUCOSE; Start 10/09/18 at 15:00 Glucagon (Glucagen) 1 mg Q15M PRN IM DECREASED GLUCOSE; Start 10/09/18 at 15:00 Glucose (Glutose) 15 gm Q15M PRN BUCCAL DECREASED GLUCOSE; Start 10/09/18 at 15:00 Sodium Chloride 500 ml @ 500 mls/hr Q1H PRN IV BLOOD PRESSURE SUPPORT Last administered on 10/10/18at 07:59; Admin Dose 500 MLS/HR; Start 10/09/18 at 19:30 Albuterol (Ventolin Hfa) 4 puff Q6H RESP THERAPY INH Last administered on 10/21/18 01:53; Admin Dose 4 PUFF; Start 10/10/18 at 02:00 Ipratropium [place] (Atrovent Hfa) 4 puff Q6H RESP THERAPY INH Last administered on 10/21/18 01:53; Admin Dose 4 PUFF; Start 10/10/18 at 02:00 Methylprednisolone Sodium Succinate (Solu-Medrol) 40 mg Q8 IV Last administered on 10/21/18 05:32; Admin Dose 40 MG; Start 10/14/18 at 14:00 Quetiapine Fumarate (Seroquel) 50 mg BID GTB Last administered on 10/21/18 08:45; Admin Dose 50 MG; Start 10/14/18 at 13:30 Lorazepam (Ativan) 1 mg Q4H PRN GTB AGITATION/ANXIETY Last administered on 10/19/18 17:35; Admin Dose 1 MG; Start 10/14/18 at 13:00 Lisinopril (Zestril) 2.5 mg DAILY PO Last administered on 10/18/18 08:28; Admin Dose 2.5 MG; Start 10/15/18 at 09:00; Status Hold Linagliptin (Tradjenta) 5 mg DAILY PO Last administered on 10/21/18 08:49; Admin Dose 5 MG; Start 10/16/18 at 10:30 Carvedilol (Coreg) 6.25 mg BID PO Last administered on 10/21/18 08:46; Admin Dose 6.25 MG; Start 10/17/18 at 21:00 Calcium Carbonate (Ca Carbonate) 1,250 mg TID GTB Last administered on 10/21/18 08:44; Admin Dose 1,250 MG; Start 10/17/18 at 14:00 Fentanyl (Duragesic 50 Mcg/Hr Patch) 1 patch Q72H TRANSDERM Last administered on 10/20/18 23:24; Admin Dose 1 PATCH; Start 10/17/18 at 20:30 Lorazepam (Ativan) 2 mg Q6H GTB Last administered on 10/21/18 08:44; Admin Dose 2 MG; Start 10/20/18 at 15:00 Oxycodone/ Acetaminophen (Percocet (5/ 325)) 1 tab Q4H PRN PO MODERATE PAIN LEVEL 4-6 Last administered on 10/20/18 13:50; Admin Dose 1 TAB; Start 10/20/18 at 11:30 Calcitriol (Rocaltrol) 0.5 mcg BID PO Last administered on 10/21/18 08:45; Admin Dose 0.5 MCG; Start 10/20/18 at 21:00 BRSIA HAQUE Oct 21, 2018 10:59
--- NOTE | 2018-10-21 12:22 | PN ---
Date/Time of Note Date/Time of Note DATE: 10/21/18 TIME: 12:15 Assessment/Plan VTE Prophylaxis Risk score (from Ns)>0 risk: 5 SCD applied (from [facility] [place] Yes SCD contraindicated: other Pharmacological prophylaxis: other Pharm contraindication: other Lines/Catheters [facility]from [facility] Mid Line Central line still needed: Yes Urinary Cath still in place: No (Condom Cath) Assessment/Plan Assessment/Plan - Hypomagnesium- replaced per nephro- am Mag lab - Acute on chronic hypoxemic respiratory failure with underlying ARDS, continue ventilatory support. - Dr. Villa is following in pulmonology consultation. - Acute kidney injury, continue to monitor BUN and creatinine. G-tube feeding changed to renal source. - Dr. Hobson is following in nephrology consultation. - Leukocytosis 2/2 steroid dependency 2/2 RA - afebrile; BS stable -ID follows -Tachycardia, Dr. Joshi is following in cardiology consultation. - Cardiomyopathy with EF 35-40% - Rheumatoid arthritis with steroid dependence. The patient's pain seems to be controlled with the current dose of fentanyl. - Dysphagia. Continue GT feeding. - Anemia of chronic disease. - Thrombocytosis- monitor - Hypoparathyroidism with recent hypercalcemia, status post pamidronate, resolved. - Hypertension. - Functional quadriplegia - Hx of severe cervical spinal cord stenosis with cord compression from C3-C5, s/p laminectomy. - History of fibromyalgia rheumatica - Hx of VAT on 08/11/2018 Critical care time spent 30 minutes. Further recommendations based on clinical course. Plan of care discussed with Dr. Rosales Result Diagram: 10/21/18 0452 10/21/18 0452 Results 24hrs Laboratory Tests Test 10/20/18 13:51 10/20/18 20:41 10/21/18 01:57 10/21/18 04:52 Bedside Glucose 170 171 185 White Blood Count 24.6 #H Red Blood Count 3.45 L Hemoglobin 9.8 L Hematocrit 31.9 L Mean Corpuscular Volume 92.5 Mean Corpuscular 28.4 L Hemoglobin Mean Corpuscular 30.7 L Hemoglobin Concent Red Cell Distribution 18.6 H Width Platelet Count 490 H Mean Platelet Volume 11.0 H Immature Granulocytes % 3.100 H Neutrophils % 84.4 H Lymphocytes % 4.3 L Monocytes % 7.9 Eosinophils % 0.0 Basophils % 0.3 Nucleated Red Blood 0.0 Cells % Immature Granulocytes # 0.750 H Neutrophils # 20.7 H Lymphocytes # 1.1 Monocytes # 1.9 H Eosinophils # 0.0 Basophils # 0.1 Nucleated Red Blood 0.0 Cells # Sodium Level 135 Potassium Level 4.4 Chloride Level 92 L Carbon Dioxide Level 35 H Anion Gap 8 Blood Urea Nitrogen 33 H Creatinine 0.43 L Est Glomerular Filtrat > 60 Rate mL/min Glucose Level 183 Calcium Level 6.9 L Phosphorus Level 4.8 Magnesium Level 1.6 L Thyroid Stimulating 3.860 Hormone (TSH) Test 10/21/18 08:47 Bedside Glucose 163 Subjective 24 Hr Interval Summary Free Text/Dictation -NAD; continues on ventilatory support- FIO2 50% - alert; opens eyes; responsive; seems comfortable -steroid dependency 2/2 RA- afebrile; Leukocytosis; bs stable -Continue Ativan for agitation, current pain management. Hypomagnesium- replaced per nephro- am Mag lab - no new issues reported last night per staff Subjective hx not possible: pt non-verbal Constitutional: requiring IVF, requiring O2 Respiratory: no complaints Cardiovascular: no complaints Gastrointestinal: no complaints Exam/Review of Systems Exam Vitals Vital Signs Date Temp Pulse Resp B/P (MAP) Pulse Ox O2 O2 Flow FiO2 Time Delivery Rate 10/21/18 106 23 110/79 98 Mechanical 10:00 (89) Ventilator 10/21/18 60 08:00 10/21/18 98.2 08:00 Intake and Output 10/20/18 10/20/18 10/21/18 1515:00 23:00 07:00 IntakeIntake Total 370 ml 740 ml 370 ml OutputOutput Total 450 ml 535 ml 725 ml BalanceBalance -80 ml 205 ml -355 ml Constitutional: alert, non-verbal, frail Psych: nl mood/affect Eyes: nl lids, nl sclera ENMT: nl external ears & nose Neck: non-tender Respiratory: diminished breath sounds Cardiovascular: nl pulses, other (S1S2) Gastrointestinal: soft, non-tender, other (GT INTACT) Musculoskeletal: muscle weakness, range of motion Extremities: normal pulses Neurological: confused Lymph: nontender Results Results 24hrs Laboratory Tests Test 10/20/18 13:51 10/20/18 20:41 10/21/18 01:57 10/21/18 04:52 Bedside Glucose 170 171 185 White Blood Count 24.6 #H Red Blood Count 3.45 L Hemoglobin 9.8 L Hematocrit 31.9 L Mean Corpuscular Volume 92.5 Mean Corpuscular 28.4 L Hemoglobin Mean Corpuscular 30.7 L Hemoglobin Concent Red Cell Distribution 18.6 H Width Platelet Count 490 H Mean Platelet Volume 11.0 H Immature Granulocytes % 3.100 H Neutrophils % 84.4 H Lymphocytes % 4.3 L Monocytes % 7.9 Eosinophils % 0.0 Basophils % 0.3 Nucleated Red Blood 0.0 Cells % Immature Granulocytes # 0.750 H Neutrophils # 20.7 H Lymphocytes # 1.1 Monocytes # 1.9 H Eosinophils # 0.0 Basophils # 0.1 Nucleated Red Blood 0.0 Cells # Sodium Level 135 Potassium Level 4.4 Chloride Level 92 L Carbon Dioxide Level 35 H Anion Gap 8 Blood Urea Nitrogen 33 H Creatinine 0.43 L Est Glomerular Filtrat > 60 Rate mL/min Glucose Level 183 Calcium Level 6.9 L Phosphorus Level 4.8 Magnesium Level 1.6 L Thyroid Stimulating 3.860 Hormone (TSH) Test 10/21/18 08:47 Bedside Glucose 163 Medications Medication Current Medications Acetaminophen (Tylenol Liquid) 650 mg Q4H PRN GTB MILD PAIN(1-3)OR ELEVATED TEM P Last administered on 10/16/18at 07:52; Admin Dose 650 MG; Start 10/09/18 at 14:00 Al Hydrox/Mg Hydrox/Simethicone (Mag-Al Plus) 15 ml Q6H PRN PO GASTROINTESTINAL UPSET Last administered on 10/17/18at 13:18; Admin Dose 15 ML; Start 10/09/18 at 14:00 Eye Lubricant (Artificial Tears Oph) 1 drop Q6H PRN BOTH EYES DRY EYES; Start 10/09/18 at 14:00 Bisacodyl (Dulcolax Supp) 10 mg DAILY PRN [place] CONSTIPATION; Start 10/09/18 at 14:00 Clonidine (Catapres) 0.1 mg DAILY PRN GTB ELEVATED BLOOD PRESSURE; Start 10/09/18 at 14:00 Diltiazem HCl (Cardizem Iv) 5 mg Q4 PRN IV ELEVATED HEART RATE Last administer ed on 10/18/18at 01:09; Admin Dose 5 MG; Start 10/09/18 at 14:00 Diphenhydramine HCl (Benadryl Liquid Cup) 25 mg Q6 PRN GTB ITCHING Last administered on 10/17/18 23:27; Admin Dose 25 MG; Start 10/09/18 at 14:00 Duloxetine HCl (Cymbalta) 30 mg DAILY PO Last administered on 10/21/18 08:45; Admin Dose 30 MG; Start 10/10/18 at 09:00 Epoetin Arpan (Epogen (Esrd)) 10,000 units TuSa@1300 SC Last administered on 10/18/18 13:32; Admin Dose 10,000 UNITS; Start 10/11/18 at 13:00 Gabapentin (Neurontin Liquid) 400 mg Q8 GTB Last administered on 10/21/18 05:32; Admin Dose 400 MG; Start 10/09/18 at 15:30 Hydralazine HCl (Apresoline) 10 mg Q4H PRN IV ELEVATED BLOOD PRESSURE; Start 10/09/18 at 14:00 Hydromorphone HCl (Dilaudid) 4 mg Q4H PRN PO MODERATE PAIN LEVEL 7-10 Last administered on 10/21/18 08:49; Admin Dose 4 MG; Start 10/09/18 at 14:00 Hydroxychloroquine Sulfate (Plaquenil) 200 mg BID PO Last administered on 10/21/18 08:45; Admin Dose 200 MG; Start 10/09/18 at 21:00 Diagnostic Test (Pha) (Accu-Chek) 1 ea 02 XX Last administered on 10/21/18 02:01; Admin Dose 1 EA; Start 10/10/18 at 02:00 Insulin Aspart (Novolog Insulin Pen) NOVOLOG *CUSTOM* ALGORITHM Q6H SC Last administered on 10/21/18 10:12; Admin Dose 1 UNIT; Start 10/09/18 at 14:00 Lactobacillus Acidophilus (Florajen3 Capsule) 1 each BID GTB Last administered on 10/21/18 08:45; Admin Dose 1 EACH; Start 10/09/18 at 21:00 Lansoprazole (Prevacid) 30 mg BID@06,18 GTB Last administered on 10/21/18 05:31; Admin Dose 30 MG; Start 10/09/18 at 18:00 Levetiracetam (Keppra Liquid) 500 mg BID GTB Last administered on 10/21/18 08:44; Admin Dose 500 MG; Start 10/09/18 at 21:00 Magnesium Oxide (Mag-Ox 400) 400 mg BID GTB Last administered on 10/21/18 08:45; Admin Dose 400 MG; Start 10/09/18 at 21:00 Metoclopramide HCl (Reglan) 10 mg TID IV Last administered on 10/21/18 08:44; Admin Dose 10 MG; Start 10/09/18 at 21:00 Miconazole Nitrate (Miconazole 2% Cr) 1 applic BID TOP Last administered on 10/21/18 08:44; Admin Dose 1 APPLIC; Start 10/09/18 at 21:00 Miconazole Nitrate (Miconazole 2% Cr) 1 applic Q12 PRN TOP rash; Start 10/09/18 at 14:00 Ondansetron HCl (Zofran Inj) 4 mg Q4H PRN IV NAUSEA AND/OR VOMITING Last administered on 10/19/18at 16:37; Admin Dose 4 MG; Start 10/09/18 at 14:00 Polyethylene Glycol (Miralax) 17 gm DAILY PRN GTB CONSTIPATION; Start 10/09/18 at 14:00 Senna (Senokot) 2 tab Q8 PRN PO CONSTIPATION; Start 10/09/18 at 14:00 Trimethoprim/ Sulfamethoxazole (Bactrim Susp) 40 ml DAILY GTB Last administered on 10/21/18 08:44; Admin Dose 40 ML; Start 10/10/18 at 09:00 Zolpidem Tartrate (Ambien) 5 mg HS PRN PO INSOMNIA Last administered on 10/21/18 02:34; Admin Dose 5 MG; Start 10/09/18 at 14:00 Miscellaneous Information 1 ea NOTE XX ; Start 10/09/18 at 15:00 Glucose (Glutose) 15 gm Q15M PRN PO DECREASED GLUCOSE; Start 10/09/18 at 15:00 Glucose (Glutose) 22.5 gm Q15M PRN PO DECREASED GLUCOSE; Start 10/09/18 at 15:00 Dextrose (D50w Syringe) 25 ml Q15M PRN IV DECREASED GLUCOSE; Start 10/09/18 at 15:00 Dextrose (D50w Syringe) 50 ml Q15M PRN IV DECREASED GLUCOSE; Start 10/09/18 at 15:00 Glucagon (Glucagen) 1 mg Q15M PRN IM DECREASED GLUCOSE; Start 10/09/18 at 15:00 Glucose (Glutose) 15 gm Q15M PRN BUCCAL DECREASED GLUCOSE; Start 10/09/18 at 15:00 Sodium Chloride 500 ml @ 500 mls/hr Q1H PRN IV BLOOD PRESSURE SUPPORT Last administered on 10/10/18 07:59; Admin Dose 500 MLS/HR; Start 10/09/18 at 19:30 Albuterol (Ventolin Hfa) 4 puff Q6H RESP THERAPY INH Last administered on 10/21/18 08:30; Admin Dose 4 PUFF; Start 10/10/18 at 02:00 Ipratropium [place] (Atrovent Hfa) 4 puff Q6H RESP THERAPY INH Last administered on 10/21/18 08:30; Admin Dose 4 PUFF; Start 10/10/18 at 02:00 Methylprednisolone Sodium Succinate (Solu-Medrol) 40 mg Q8 IV Last administered on 10/21/18 05:32; Admin Dose 40 MG; Start 10/14/18 at 14:00 Lorazepam (Ativan) 1 mg Q4H PRN GTB AGITATION/ANXIETY Last administered on 10/19/18 17:35; Admin Dose 1 MG; Start 10/14/18 at 13:00 Lisinopril (Zestril) 2.5 mg DAILY PO Last administered on 10/18/18 08:28; Admin Dose 2.5 MG; Start 10/15/18 at 09:00; Status Hold Linagliptin (Tradjenta) 5 mg DAILY PO Last administered on 10/21/18 08:49; Admin Dose 5 MG; Start 10/16/18 at 10:30 Carvedilol (Coreg) 6.25 mg BID PO Last administered on 10/21/18 08:46; Admin Dose 6.25 MG; Start 10/17/18 at 21:00 Calcium Carbonate (Ca Carbonate) 1,250 mg TID GTB Last administered on 10/21/18 08:44; Admin Dose 1,250 MG; Start 10/17/18 at 14:00 Fentanyl (Duragesic 50 Mcg/Hr Patch) 1 patch Q72H TRANSDERM Last administered on 10/20/18 23:24; Admin Dose 1 PATCH; Start 10/17/18 at 20:30 Lorazepam (Ativan) 2 mg Q6H GTB Last administered on 10/21/18 08:44; Admin Dose 2 MG; Start 10/20/18 at 15:00 Oxycodone/ Acetaminophen (Percocet (5/ 325)) 1 tab Q4H PRN PO MODERATE PAIN LEVEL 4-6 Last administered on 10/20/18at 13:50; Admin Dose 1 TAB; Start 10/20/18 at 11:30 Calcitriol (Rocaltrol) 0.5 mcg BID PO Last administered on 10/21/18 08:45; Admin Dose 0.5 MCG; Start 10/20/18 at 21:00 Quetiapine Fumarate (Seroquel) 100 mg BID GTB ; Start 10/21/18 at 21:00 TOMMY MARTELL Oct 21, 2018 12:22
--- NOTE | 2018-10-21 12:44 | CONS ---
Assessment/Plan Assessment/Plan Problems: (1) Hypocalcemia Onset Date: ~ 10/14/2018 Status: Acute Comment: Correcting now. Continue to follow (2) Acquired hypothyroidism Status: Chronic Comment: Stable (3) Diabetes mellitus type 2 in nonobese Status: Chronic Comment: Good control (4) Adrenal insufficiency due to steroid withdrawal Status: Chronic Comment: Presently adequately covered using high-dose IV steroids for the stress situation Consultation Date/Type/Reason Admit Date/Time Oct 09, 2018 at 12:16 Initial Consult Date 10/12/18 Type of Consult Endocrinology Reason for Consultation Hypocalcemia; adrenal insufficiency; diabetes mellitus type II (borderline); Requesting Provider: NOLA VIDAL MD Date/Time of Note DATE: 10/21/18 TIME: 12:38 24 HR Interval Summary Free Text/Dictation Patient is without changes. Exam/Review of Systems Exam Vitals Vital Signs Date Temp Pulse Resp B/P (MAP) Pulse Ox O2 O2 Flow FiO2 Time Delivery Rate 10/21/18 106 23 110/79 98 Mechanical 10:00 (89) Ventilator 10/21/18 60 08:00 10/21/18 98.2 08:00 Intake and Output 10/20/18 10/20/18 10/21/18 1414:59 22:59 06:59 IntakeIntake Total 370 ml 690 ml 420 ml OutputOutput Total 655 ml 555 ml 725 ml BalanceBalance -285 ml 135 ml -305 ml Exam No change in examination Results Result Diagram: 10/21/18 0452 10/21/18 0452 Results 24hrs Laboratory Tests Test 10/20/18 13:51 10/20/18 20:41 10/21/18 01:57 10/21/18 04:52 Bedside Glucose 170 171 185 White Blood Count 24.6 #H Red Blood Count 3.45 L Hemoglobin 9.8 L Hematocrit 31.9 L Mean Corpuscular Volume 92.5 Mean Corpuscular 28.4 L Hemoglobin Mean Corpuscular 30.7 L Hemoglobin Concent Red Cell Distribution 18.6 H Width Platelet Count 490 H Mean Platelet Volume 11.0 H Immature Granulocytes % 3.100 H Neutrophils % 84.4 H Lymphocytes % 4.3 L Monocytes % 7.9 Eosinophils % 0.0 Basophils % 0.3 Nucleated Red Blood 0.0 Cells % Immature Granulocytes # 0.750 H Neutrophils # 20.7 H Lymphocytes # 1.1 Monocytes # 1.9 H Eosinophils # 0.0 Basophils # 0.1 Nucleated Red Blood 0.0 Cells # Sodium Level 135 Potassium Level 4.4 Chloride Level 92 L Carbon Dioxide Level 35 H Anion Gap 8 Blood Urea Nitrogen 33 H Creatinine 0.43 L Est Glomerular Filtrat > 60 Rate mL/min Glucose Level 183 Calcium Level 6.9 L Phosphorus Level 4.8 Magnesium Level 1.6 L Thyroid Stimulating 3.860 Hormone (TSH) Test 10/21/18 08:47 Bedside Glucose 163 Medications Medication Current Medications Acetaminophen (Tylenol Liquid) 650 mg Q4H PRN GTB MILD PAIN(1-3)OR ELEVATED TEMP Last administered on 10/16/18 07:52; Admin Dose 650 MG; Start 10/09/18 at 14:00 Al Hydrox/Mg Hydrox/Simethicone (Mag-Al Plus) 15 ml Q6H PRN PO GASTROINTESTINAL UPSET Last administered on 10/17/18 13:18; Admin Dose 15 ML; Start 10/09/18 at 14:00 Eye Lubricant (Artificial Tears Oph) 1 drop Q6H PRN BOTH EYES DRY EYES; Start 10/09/18 at 14:00 Bisacodyl (Dulcolax Supp) 10 mg DAILY PRN [place] CONSTIPATION; Start 10/09/18 at 14:00 Clonidine (Catapres) 0.1 mg DAILY PRN GTB ELEVATED BLOOD PRESSURE; Start at 14:00 Diltiazem HCl (Cardizem Iv) 5 mg Q4 PRN IV ELEVATED HEART RATE Last administered on 10/18/18 01:09; Admin Dose 5 MG; Start 10/09/18 at 14:00 Diphenhydramine HCl (Benadryl Liquid Cup) 25 mg Q6 PRN GTB ITCHING Last administered on 10/17/18 23:27; Admin Dose 25 MG; Start 10/09/18 at 14:00 Duloxetine HCl (Cymbalta) 30 mg DAILY PO Last administered on 10/21/18 08:45; Admin Dose 30 MG; Start 10/10/18 at 09:00 Epoetin Arpan (Epogen (Esrd)) 10,000 units TuSa@1300 SC Last administered on 13:32; Admin Dose 10,000 UNITS; Start 10/11/18 at 13:00 Gabapentin (Neurontin Liquid) 400 mg Q8 GTB Last administered on 10/21/18 05:32; Admin Dose 400 MG; Start 10/09/18 at 15:30 Hydralazine HCl (Apresoline) 10 mg Q4H PRN IV ELEVATED BLOOD PRESSURE; Start 10/09/18 at 14:00 Hydromorphone HCl (Dilaudid) 4 mg Q4H PRN PO MODERATE PAIN LEVEL 7-10 Last administered on 10/21/18 08:49; Admin Dose 4 MG; Start 10/09/18 at 14:00 Hydroxychloroquine Sulfate (Plaquenil) 200 mg BID PO Last administered on 10/21/18 08:45; Admin Dose 200 MG; Start 10/09/18 at 21:00 Diagnostic Test (Pha) (Accu-Chek) 1 ea 02 XX Last administered on 10/21/18 02:01; Admin Dose 1 EA; Start 10/10/18 at 02:00 Insulin Aspart (Novolog Insulin Pen) NOVOLOG *CUSTOM* ALGORITHM Q6H SC Last administered on 10/21/18 10:12; Admin Dose 1 UNIT; Start 10/09/18 at 14:00 Lactobacillus Acidophilus (Florajen3 Capsule) 1 each BID GTB Last administered on 10/21/18 08:45; Admin Dose 1 EACH; Start 10/09/18 at 21:00 Lansoprazole (Prevacid) 30 mg BID@06,18 GTB Last administered on 10/21/18 05:31; Admin Dose 30 MG; Start 10/09/18 at 18:00 Levetiracetam (Keppra Liquid) 500 mg BID GTB Last administered on 10/21/18 08:44; Admin Dose 500 MG; Start 10/09/18 at 21:00 Magnesium Oxide (Mag-Ox 400) 400 mg BID GTB Last administered on 10/21/18 08:45; Admin Dose 400 MG; Start 10/09/18 at 21:00 Metoclopramide HCl (Reglan) 10 mg TID IV Last administered on 10/21/18 08:44; Admin Dose 10 MG; Start 10/09/18 at 21:00 Miconazole Nitrate (Miconazole 2% Cr) 1 applic BID TOP Last administered on 10/21/18 08:44; Admin Dose 1 APPLIC; Start 10/09/18 at 21:00 Miconazole Nitrate (Miconazole 2% Cr) 1 applic Q12 PRN TOP rash; Start 10/09/18 at 14:00 Ondansetron HCl (Zofran Inj) 4 mg Q4H PRN IV NAUSEA AND/OR VOMITING Last administered on 10/19/18 16:37; Admin Dose 4 MG; Start 10/09/18 at 14:00 Polyethylene Glycol (Miralax) 17 gm DAILY PRN GTB CONSTIPATION; Start 10/09/18 at 14:00 Senna (Senokot) 2 tab Q8 PRN PO CONSTIPATION; Start 10/09/18 at 14:00 Trimethoprim/ Sulfamethoxazole (Bactrim Susp) 40 ml DAILY GTB Last administered on 10/21/18 08:44; Admin Dose 40 ML; Start 10/10/18 at 09:00 Zolpidem Tartrate (Ambien) 5 mg HS PRN PO INSOMNIA Last administered on 10/21/18 02:34; Admin Dose 5 MG; Start 10/09/18 at 14:00 Miscellaneous Information 1 ea NOTE XX ; Start 10/09/18 at 15:00 Glucose (Glutose) 15 gm Q15M PRN PO DECREASED GLUCOSE; Start 10/09/18 at 15:00 Glucose (Glutose) 22.5 gm Q15M PRN PO DECREASED GLUCOSE; Start 10/09/18 at 15:00 Dextrose (D50w Syringe) 25 ml Q15M PRN IV DECREASED GLUCOSE; Start 10/09/18 at 15:00 Dextrose (D50w Syringe) 50 ml Q15M PRN IV DECREASED GLUCOSE; Start 10/09/18 at 15:00 Glucagon (Glucagen) 1 mg Q15M PRN IM DECREASED GLUCOSE; Start 10/09/18 at 15:00 Glucose (Glutose) 15 gm Q15M PRN BUCCAL DECREASED GLUCOSE; Start 10/09/18 at 15:00 Sodium Chloride 500 ml @ 500 mls/hr Q1H PRN IV BLOOD PRESSURE SUPPORT Last administered on 10/10/18 07:59; Admin Dose 500 MLS/HR; Start 10/09/18 at 19:30 Albuterol (Ventolin Hfa) 4 puff Q6H RESP THERAPY INH Last administered on 10/21/18 08:30; Admin Dose 4 PUFF; Start 10/10/18 at 02:00 Ipratropium [place] (Atrovent Hfa) 4 puff Q6H RESP THERAPY INH Last administered on 10/21/18 08:30; Admin Dose 4 PUFF; Start 10/10/18 at 02:00 Methylprednisolone Sodium Succinate (Solu-Medrol) 40 mg Q8 IV Last administered on 10/21/18 05:32; Admin Dose 40 MG; Start 10/14/18 at 14:00 Lorazepam (Ativan) 1 mg Q4H PRN GTB AGITATION/ANXIETY Last administered on 10/19/18 17:35; Admin Dose 1 MG; Start 10/14/18 at 13:00 Lisinopril (Zestril) 2.5 mg DAILY PO Last administered on 10/18/18 08:28; Admin Dose 2.5 MG; Start 10/15/18 at 09:00; Status Hold Linagliptin (Tradjenta) 5 mg DAILY PO Last administered on 10/21/18 08:49; Admin Dose 5 MG; Start 10/16/18 at 10:30 Carvedilol (Coreg) 6.25 mg BID PO Last administered on 10/21/18 08:46; Admin Dose 6.25 MG; Start 10/17/18 at 21:00 Calcium Carbonate (Ca Carbonate) 1,250 mg TID GTB Last administered on 10/21/18 08:44; Admin Dose 1,250 MG; Start 10/17/18 at 14:00 Fentanyl (Duragesic 50 Mcg/Hr Patch) 1 patch Q72H TRANSDERM Last administered on 10/20/18 23:24; Admin Dose 1 PATCH; Start 10/17/18 at 20:30 Lorazepam (Ativan) 2 mg Q6H GTB Last administered on 10/21/18 08:44; Admin Dose 2 MG; Start 10/20/18 at 15:00 Oxycodone/ Acetaminophen (Percocet (5/ 325)) 1 tab Q4H PRN PO MODERATE PAIN LEVEL 4-6 Last administered on 10/20/18 13:50; Admin Dose 1 TAB; Start 10/20/18 at 11:30 Calcitriol (Rocaltrol) 0.5 mcg BID PO Last administered on 3/8/19at 08:45; Admin Dose 0.5 MCG; Start 10/20/18 at 21:00 Quetiapine Fumarate (Seroquel) 100 mg BID GTB ; Start 10/21/18 at 21:00 KEV ISSA MD Oct 21, 2018 12:44
[2018-10-21] MEDS: OXYCODONE/ACETAMINOPHEN (5/325) TAB PO PRN (12:47)
--- NOTE | 2018-10-21 16:45 | CONS ---
Assessment/Plan Assessment/Plan Assessment/Plan (Daily) 1. Respiratory failure secondary to pneumonia versus interstitial pneumonitis from rheumatoid arthritis versus mild aspiration. -on Bactrim 2. Severe rheumatoid arthritis. 3. Quadriplegia. 4. Adrenal insufficiency. 5. Gastroparesis. -Reglan, denies nausea 6. Hypothyroidism. 7. Chronic pain syndrome. 8. Hypertension. 9. Diarrhea -VRE in stool -FOB neg 10. Leukocytosis secondary to steroids Swallow eval: Impression: Oropharyngeal dysphagia associated with reduced oropharyngeal strength/coordination, delayed timing of swallowing and reduced coordination of breath with swallow safety impacting swallow safety. Pt is not safe to initiate p.o intake and is at high risk of aspiration. Recommendation: 1. Initiate dysphagia therapy 3-5x per week for 1-2 weeks 2. Keep NPO+PEG tube feeds for primary means of nutrition/hydration/medication delivery 3. Anticipate need for in-line PMV evaluation one respiratory status improves and is stabilized 4. ongoing assessment and BOT and oropharyngeal strengthening exercises, aswell as pt/family education and counseling 5. Anticipate need for MBSS prior to initiation of p.o intake PLAN: ID recommendations Continue present care Nothing by mouth per swallow eval results Continue with tube feeds check residuals q 4 hours Continue Reglan. Aspiration precautions. So far there is no evidence of aspiration. 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 Consultation Date/Type/Reason Admit Date/Time Oct 09, 2018 at 12:16 Initial Consult Date 10/12/18 Requesting Provider: NOLA VIDAL MD Date/Time of Note DATE: 10/21/18 TIME: 16:44 24 HR Interval Summary Subjective hx not possible: pt critical status Exam/Review of Systems Exam Vitals Vital Signs Date Temp Pulse Resp B/P (MAP) Pulse Ox O2 O2 Flow FiO2 Time Delivery Rate 10/21/18 109 30 97 50 15:30 10/21/18 133/83 Mechanical 13:00 (100) Ventilator 10/21/18 98.6 12:00 Intake and Output 10/20/18 10/20/18 10/21/18 1414:59 22:59 06:59 IntakeIntake Total 370 ml 690 ml 420 ml OutputOutput Total 655 ml 555 ml 725 ml BalanceBalance -285 ml 135 ml -305 ml Constitutional: alert Eyes: nl conjunctiva, EOMI, nl lids, nl sclera, PERRL ENMT: nl external ears & nose Neck: supple Respiratory: normal air movement Results Result Diagram: 10/21/18 0452 10/21/18 0452 Results 24hrs Laboratory Tests Test 10/20/18 20:41 10/21/18 01:57 10/21/18 04:52 10/21/18 08:47 Bedside Glucose 171 185 163 White Blood Count 24.6 #H Red Blood Count 3.45 L Hemoglobin 9.8 L Hematocrit 31.9 L Mean Corpuscular Volume 92.5 Mean Corpuscular 28.4 L Hemoglobin Mean Corpuscular 30.7 L Hemoglobin Concent Red Cell Distribution 18.6 H Width Platelet Count 490 H Mean Platelet Volume 11.0 H Immature Granulocytes % 3.100 H Neutrophils % 84.4 H Lymphocytes % 4.3 L Monocytes % 7.9 Eosinophils % 0.0 Basophils % 0.3 Nucleated Red Blood 0.0 Cells % Immature Granulocytes # 0.750 H Neutrophils # 20.7 H Lymphocytes # 1.1 Monocytes # 1.9 H Eosinophils # 0.0 Basophils # 0.1 Nucleated Red Blood 0.0 Cells # Sodium Level 135 Potassium Level 4.4 Chloride Level 92 L Carbon Dioxide Level 35 H Anion Gap 8 Blood Urea Nitrogen 33 H Creatinine 0.43 L Est Glomerular Filtrat > 60 Rate mL/min Glucose Level 183 Calcium Level 6.9 L Phosphorus Level 4.8 Magnesium Level 1.6 L Thyroid Stimulating 3.860 Hormone (TSH) Test 10/21/18 14:17 Bedside Glucose 148 Medications Medication Current Medications Acetaminophen (Tylenol Liquid) 650 mg Q4H PRN GTB MILD PAIN(1-3)OR ELEVATED TEMP Last administered on 10/16/18at 07:52; Admin Dose 650 MG; Start 10/09/18 at 14:00 Al Hydrox/Mg Hydrox/Simethicone (Mag-Al Plus) 15 ml Q6H PRN PO GASTROINTESTINAL UPSET Last administered on 10/17/18at 13:18; Admin Dose 15 ML; Start 10/09/18 at 14:00 Eye Lubricant (Artificial Tears Oph) 1 drop Q6H PRN BOTH EYES DRY EYES; Start 10/09/18 at 14:00 Bisacodyl (Dulcolax Supp) 10 mg DAILY PRN [place] CONSTIPATION; Start 10/09/18 at 14:00 Clonidine (Catapres) 0.1 mg DAILY PRN GTB ELEVATED BLOOD PRESSURE; Start 10/09/18 at 14:00 Diltiazem HCl (Cardizem Iv) 5 mg Q4 PRN IV ELEVATED HEART RATE Last administered on 10/18/18 01:09; Admin Dose 5 MG; Start 10/09/18 at 14:00 Diphenhydramine HCl (Benadryl Liquid Cup) 25 mg Q6 PRN GTB ITCHING Last administered on 10/17/18 23:27; Admin Dose 25 MG; Start 10/09/18 at 14:00 Duloxetine HCl (Cymbalta) 30 mg DAILY PO Last administered on 10/21/18 08:45; Admin Dose 30 MG; Start 10/10/18 at 09:00 Epoetin Arpan (Epogen (Esrd)) 10,000 units TuSa@1300 SC Last administered on 10/18/18 13:32; Admin Dose 10,000 UNITS; Start 10/11/18 at 13:00 Gabapentin (Neurontin Liquid) 400 mg Q8 GTB Last administered on 10/21/18 14:12; Admin Dose 400 MG; Start 10/09/18 at 15:30 Hydralazine HCl (Apresoline) 10 mg Q4H PRN IV ELEVATED BLOOD PRESSURE; Start 10/09/18 at 14:00 Hydromorphone HCl (Dilaudid) 4 mg Q4H PRN PO MODERATE PAIN LEVEL 7-10 Last administered on 10/21/18 08:49; Admin Dose 4 MG; Start 10/09/18 at 14:00 Hydroxychloroquine Sulfate (Plaquenil) 200 mg BID PO Last administered on 10/21/18 08:45; Admin Dose 200 MG; Start 10/09/18 at 21:00 Diagnostic Test (Pha) (Accu-Chek) 1 ea 02 XX Last administered on 10/21/18 02:01; Admin Dose 1 EA; Start 10/10/18 at 02:00 Insulin Aspart (Novolog Insulin Pen) NOVOLOG *CUSTOM* ALGORITHM Q6H SC Last administered on 10/21/18 10:12; Admin Dose 1 UNIT; Start 10/09/18 at 14:00 Lactobacillus Acidophilus (Florajen3 Capsule) 1 each BID GTB Last administered on 10/21/18 08:45; Admin Dose 1 EACH; Start 10/09/18 at 21:00 Lansoprazole (Prevacid) 30 mg BID@,18 GTB Last administered on 10/21/18 05:31; Admin Dose 30 MG; Start 10/09/18 at 18:00 Levetiracetam (Keppra Liquid) 500 mg BID GTB Last administered on 10/21/18 08:44; Admin Dose 500 MG; Start 10/09/18 at 21:00 Magnesium Oxide (Mag-Ox 400) 400 mg BID GTB Last administered on 10/21/18 08:45; Admin Dose 400 MG; Start 10/09/18 at 21:00 Metoclopramide HCl (Reglan) 10 mg TID IV Last administered on 10/21/18 12:47; Admin Dose 10 MG; Start 10/09/18 at 21:00 Miconazole Nitrate (Miconazole 2% Cr) 1 applic BID TOP Last administered on 10/21/18 08:44; Admin Dose 1 APPLIC; Start 10/09/18 at 21:00 Miconazole Nitrate (Miconazole 2% Cr) 1 applic Q12 PRN TOP rash; Start 10/09/18 at 14:00 Ondansetron HCl (Zofran Inj) 4 mg Q4H PRN IV NAUSEA AND/OR VOMITING Last administered on 10/19/18 16:37; Admin Dose 4 MG; Start 10/09/18 at 14:00 Polyethylene Glycol (Miralax) 17 gm DAILY PRN GTB CONSTIPATION; Start 10/09/18 at 14:00 Senna (Senokot) 2 tab Q8 PRN PO CONSTIPATION; Start 10/09/18 at 14:00 Trimethoprim/ Sulfamethoxazole (Bactrim Susp) 40 ml DAILY GTB Last administered on 10/21/18 08:44; Admin Dose 40 ML; Start 10/10/18 at 09:00 Zolpidem Tartrate (Ambien) 5 mg HS PRN PO INSOMNIA Last administered on 10/21/18 02:34; Admin Dose 5 MG; Start 10/09/18 at 14:00 Miscellaneous Information 1 ea NOTE XX ; Start 10/09/18 at 15:00 Glucose (Glutose) 15 gm Q15M PRN PO DECREASED GLUCOSE; Start 10/09/18 at 15:00 Glucose (Glutose) 22.5 gm Q15M PRN PO DECREASED GLUCOSE; Start 10/09/18 at 15:00 Dextrose (D50w Syringe) 25 ml Q15M PRN IV DECREASED GLUCOSE; Start 10/09/18 at 15:00 Dextrose (D50w Syringe) 50 ml Q15M PRN IV DECREASED GLUCOSE; Start 10/09/18 at 15:00 Glucagon (Glucagen) 1 mg Q15M PRN IM DECREASED GLUCOSE; Start 10/09/18 at 15:00 Glucose (Glutose) 15 gm Q15M PRN BUCCAL DECREASED GLUCOSE; Start 10/09/18 at 15:00 Sodium Chloride 500 ml @ 500 mls/hr Q1H PRN IV BLOOD PRESSURE SUPPORT Last administered on 10/10/18 07:59; Admin Dose 500 MLS/HR; Start 10/09/18 at 19:30 Albuterol (Ventolin Hfa) 4 puff Q6H RESP THERAPY INH Last administered on 10/21/18 13:45; Admin Dose 4 PUFF; Start 10/10/18 at 02:00 Ipratropium [place] (Atrovent Hfa) 4 puff Q6H RESP THERAPY INH Last administered on 10/21/18 13:45; Admin Dose 4 PUFF; Start 10/10/18 at 02:00 Methylprednisolone Sodium Succinate (Solu-Medrol) 40 mg Q8 IV Last administered on 10/21/18 14:12; Admin Dose 40 MG; Start 10/14/18 at 14:00 Lorazepam (Ativan) 1 mg Q4H PRN GTB AGITATION/ANXIETY Last administered on 10/19/18 17:35; Admin Dose 1 MG; Start 10/14/18 at 13:00 Lisinopril (Zestril) 2.5 mg DAILY PO Last administered on 10/18/18 08:28; Admin Dose 2.5 MG; Start 10/15/18 at 09:00; Status Hold Linagliptin (Tradjenta) 5 mg DAILY PO Last administered on 10/21/18 08:49; Admin Dose 5 MG; Start 10/16/18 at 10:30 Carvedilol (Coreg) 6.25 mg BID PO Last administered on 10/21/18 08:46; Admin Dose 6.25 MG; Start 10/17/18 at 21:00 Calcium Carbonate (Ca Carbonate) 1,250 mg TID GTB Last administered on 10/21/18 12:47; Admin Dose 1,250 MG; Start 10/17/18 at 14:00 Fentanyl (Duragesic 50 Mcg/Hr Patch) 1 patch Q72H TRANSDERM Last administered on 10/20/18 23:24; Admin Dose 1 PATCH; Start 10/17/18 at 20:30 Lorazepam (Ativan) 2 mg Q6H GTB Last administered on 10/21/18 14:12; Admin Dose 2 MG; Start 10/20/18 at 15:00 Oxycodone/ Acetaminophen (Percocet (5/ 325)) 1 tab Q4H PRN PO MODERATE PAIN LEVEL 4-6 Last administered on 10/21/18 12:47; Admin Dose 1 TAB; Start 10/20/18 at 11:30 Calcitriol (Rocaltrol) 0.5 mcg BID PO Last administered on 10/21/18 08:45; Admin Dose 0.5 MCG; Start 10/20/18 at 21:00 Quetiapine Fumarate (Seroquel) 100 mg BID GTB ; Start 10/21/18 at 21:00 BHAVIK RUBIO MD Oct 21, 2018 16:45
--- NOTE | 2018-10-21 17:59 | CONS ---
Assessment/Plan Assessment/Plan Hospital Course (Demo Recall) # sepsis, respiratory - recurrent sepsis on 10/08/2018 due to aspiration pneumonia, HCAP, improved - possible aspiration pneumonia, recurrent pneumonia due to citrobacter, improved - acute on chronic hypoxic and hypercarbic respiratory failure - persistent leukocytosis likely due to steroid margination - h/o tracheostomy on 08/26/2018 - h/o "Increased mild left apical pneumothorax" per CXR on 09/19/2018; no pneumothorax mentioned on subsequent CXR - h/o pneumomediastinum - h/o VAT on 08/11/2018 - h/o asthma/COPD exacerbation - h/o acute tracheobronchitis - h/o MAC infection but CT chest did not demonstrate features suggestive of this per chart review - h/o HCAP due to citrobacter, based on resp culture on 09/13/2018 - h/o aspergillus growing out of resp culture per (pulm note by Dr. Alexia king) on 07/25/2018 - h/o elevated 1,3 [id number] level = 232 on 08/06/2018 - h/o MSSA septicemia # GI - diarrhea, C diff on 10/09/2018 was negative - h/o HSV esophagitis, took acyclovir x21 days from 08/26/2018 - h/o EGD, esophageal biopsy showed esophageal squamous mucosa showing acute inf lammation, granulation tissue, and ulceration consistent with ulcerative esophagitis, rare multinucleated cells with morphology suggestive of vial cytopathic changes, No cardiac mucosa, intestinal metaplasia, dysplasia, or malignancy defined - GERD - PUD # renal/ - Hypokalemia, recurrent - CKD 2 - BPH # cardiac - tachycardia, persistent - ACD - HTN - HLD # endo - T2DM - Hgb A1c 7.2% - secondary adrenal insufficiency; steroid dependent - Hypoparathyroidism - Hypercalcemia - Pamidronate was ordered # neuro - toxic metabolic encephalopathy - Cervical myopathy - Severe cervical spinal cord stenosis with cord compression from C3-C5, s/p laminectomy in ~03/2018 - Chronic pain syndrome - Functional quadriplegia - Seizure d/o # other chronic conditions - RA with chronic steroid dependence - Immunocompromised status - Fibromyalgia - DDD - H/o multiple rib fracture - Pt completed: meropenem (09/25/2018-10/02/2018), vancomycin (09/25/18-09/28/18), pip/tazo (10/09/2018-10/15/2018) recommendations - pending: pneumocystis DFA from 10/18/2018, AFB smear and culture x3 in particular to r/o mycobacterium avium intracellulaire, quantiferon TB gold, coccidioides serology - continue Bactrim for pneumocystis PPX - continue to monitor off other systemic antibiotic management d/w Pt's ARIANNA Paul the critical care time I took to care for this Pt today was from 1700 to 1730 Consultation Date/Type/Reason Admit Date/Time Oct 09, 2018 at 12:16 Initial Consult Date 10/09/18 Type of Consult ID Requesting Provider: NOLA VIDAL MD Date/Time of Note DATE: 10/21/18 TIME: 17:57 24 HR Interval Summary Subjective hx not possible: pt non-verbal, pt critical, pt critical status Exam/Review of Systems Exam Vitals Vital Signs Date Temp Pulse Resp B/P (MAP) Pulse Ox O2 O2 Flow FiO2 Time Delivery Rate 10/21/18 110 16:00 10/21/18 30 97 50 15:30 10/21/18 133/83 Mechanical 13:00 (100) Ventilator 10/21/18 98.6 12:00 Intake and Output 10/20/18 10/20/18 10/21/18 1414:59 22:59 06:59 IntakeIntake Total 370 ml 690 ml 420 ml OutputOutput Total 655 ml 555 ml 725 ml BalanceBalance -285 ml 135 ml -305 ml Constitutional: non-verbal, frail Psych: no complaints, nl mood/affect Head: normocephalic, atraumatic Eyes: nl conjunctiva, nl lids, nl sclera ENMT: nl external ears & nose, nl nasal mucosa & septum, mucosa pink and moist Neck: other (trach) Respiratory: crackles/rales, wheezing Cardiovascular: regular rate and rhythm, nl pulses Gastrointestinal: soft, non-tender, other (GT) Genitourinary - Male: other (FC) Musculoskeletal: nl extremities to inspection; No swelling Extremities: No edema Neurological: lethargic Skin: nl turgor, rash or lesions (stage II coccygleal ulcer) Results Result Diagram: 10/21/1845110/21/18451 Results 24hrs Laboratory Tests Test 10/20/18 20:41 10/21/18 01:57 10/21/18 04:52 10/21/18 08:47 Bedside Glucose 171 185 163 White Blood Count 24.6 #H Red Blood Count 3.45 L Hemoglobin 9.8 L Hematocrit 31.9 L Mean Corpuscular Volume 92.5 Mean Corpuscular 28.4 L Hemoglobin Mean Corpuscular 30.7 L Hemoglobin Concent Red Cell Distribution 18.6 H Width Platelet Count 490 H Mean Platelet Volume 11.0 H Immature Granulocytes % 3.100 H Neutrophils % 84.4 H Lymphocytes % 4.3 L Monocytes % 7.9 Eosinophils % 0.0 Basophils % 0.3 Nucleated Red Blood 0.0 Cells % Immature Granulocytes # 0.750 H Neutrophils # 20.7 H Lymphocytes # 1.1 Monocytes # 1.9 H Eosinophils # 0.0 Basophils # 0.1 Nucleated Red Blood 0.0 Cells # Sodium Level 135 Potassium Level 4.4 Chloride Level 92 L Carbon Dioxide Level 35 H Anion Gap 8 Blood Urea Nitrogen 33 H Creatinine 0.43 L Est Glomerular Filtrat > 60 Rate mL/min Glucose Level 183 Calcium Level 6.9 L Phosphorus Level 4.8 Magnesium Level 1.6 L Thyroid Stimulating 3.860 Hormone (TSH) Test 10/21/18 14:17 Bedside Glucose 148 Medications Medication Current Medications Acetaminophen (Tylenol Liquid) 650 mg Q4H PRN GTB MILD PAIN(1-3)OR ELEVATED TEMP Last administered on 10/16/18at 07:52; Admin Dose 650 MG; Start 10/09/18 at 14:00 Al Hydrox/Mg Hydrox/Simethicone (Mag-Al Plus) 15 ml Q6H PRN PO GASTROINTESTINAL UPSET Last administered on 10/17/18at 13:18; Admin Dose 15 ML; Start 10/09/18 at 14:00 Eye Lubricant (Artificial Tears Oph) 1 drop Q6H PRN BOTH EYES DRY EYES; Start 10/09/18 at 14:00 Bisacodyl (Dulcolax Supp) 10 mg DAILY PRN [place] CONSTIPATION; Start 10/09/18 at 14:00 Clonidine (Catapres) 0.1 mg DAILY PRN GTB ELEVATED BLOOD PRESSURE; Start 10/09/18 at 14:00 Diltiazem HCl (Cardizem Iv) 5 mg Q4 PRN IV ELEVATED HEART RATE Last administered on 10/18/18 01:09; Admin Dose 5 MG; Start 10/09/18 at 14:00 Diphenhydramine HCl (Benadryl Liquid Cup) 25 mg Q6 PRN GTB ITCHING Last administered on 10/17/18 23:27; Admin Dose 25 MG; Start 10/09/18 at 14:00 Duloxetine HCl (Cymbalta) 30 mg DAILY PO Last administered on 10/21/18 08:45; Admin Dose 30 MG; Start 10/10/18 at 09:00 Epoetin Arpan (Epogen (Esrd)) 10,000 units TuSa@1300 SC Last administered on 10/18/18 13:32; Admin Dose 10,000 UNITS; Start 10/11/18 at 13:00 Gabapentin (Neurontin Liquid) 400 mg Q8 GTB Last administered on 10/21/18 14: 12; Admin Dose 400 MG; Start 10/09/18 at 15:30 Hydralazine HCl (Apresoline) 10 mg Q4H PRN IV ELEVATED BLOOD PRESSURE; Start 10/09/18 at 14:00 Hydromorphone HCl (Dilaudid) 4 mg Q4H PRN PO MODERATE PAIN LEVEL 7-10 Last administered on 10/21/18 17:32; Admin Dose 4 MG; Start 10/09/18 at 14:00 Hydroxychloroquine Sulfate (Plaquenil) 200 mg BID PO Last administered on 10/21/18 08:45; Admin Dose 200 MG; Start 10/09/18 at 21:00 Diagnostic Test (Pha) (Accu-Chek) 1 ea 02 XX Last administered on 10/21/18 02:01; Admin Dose 1 EA; Start 10/10/18 at 02:00 Insulin Aspart (Novolog Insulin Pen) NOVOLOG *CUSTOM* ALGORITHM Q6H SC Last administered on 10/21/18 10:12; Admin Dose 1 UNIT; Start 10/09/18 at 14:00 Lactobacillus Acidophilus (Florajen3 Capsule) 1 each BID GTB Last administered on 10/21/18 08:45; Admin Dose 1 EACH; Start 10/09/18 at 21:00 Lansoprazole (Prevacid) 30 mg BID@06,18 GTB Last administered on 10/21/18 17:32; Admin Dose 30 MG; Start 10/09/18 at 18:00 Levetiracetam (Keppra Liquid) 500 mg BID GTB Last administered on 10/21/18 08:44; Admin Dose 500 MG; Start 10/09/18 at 21:00 Magnesium Oxide (Mag-Ox 400) 400 mg BID GTB Last administered on 10/21/18 08:45; Admin Dose 400 MG; Start 10/09/18 at 21:00 Metoclopramide HCl (Reglan) 10 mg TID IV Last administered on 10/21/18 12:47; Admin Dose 10 MG; Start 10/09/18 at 21:00 Miconazole Nitrate (Miconazole 2% Cr) 1 applic BID TOP Last administered on 10/21/18 08:44; Admin Dose 1 APPLIC; Start 10/09/18 at 21:00 Miconazole Nitrate (Miconazole 2% Cr) 1 applic Q12 PRN TOP rash; Start 10/09/18 at 14:00 Ondansetron HCl (Zofran Inj) 4 mg Q4H PRN IV NAUSEA AND/OR VOMITING Last administered on 10/19/18 16:37; Admin Dose 4 MG; Start 10/09/18 at 14:00 Polyethylene Glycol (Miralax) 17 gm DAILY PRN GTB CONSTIPATION; Start 10/09/18 at 14:00 Senna (Senokot) 2 tab Q8 PRN PO CONSTIPATION; Start 10/09/18 at 14:00 Trimethoprim/ Sulfamethoxazole (Bactrim Susp) 40 ml DAILY GTB Last administered on 10/21/18 08:44; Admin Dose 40 ML; Start 10/10/18 at 09:00 Zolpidem Tartrate (Ambien) 5 mg HS PRN PO INSOMNIA Last administered on 10/21/18 02:34; Admin Dose 5 MG; Start 10/09/18 at 14:00 Miscellaneous Information 1 ea NOTE XX ; Start 10/09/18 at 15:00 Glucose (Glutose) 15 gm Q15M PRN PO DECREASED GLUCOSE; Start 10/09/18 at 15:00 Glucose (Glutose) 22.5 gm Q15M PRN PO DECREASED GLUCOSE; Start 10/09/18 at 15:00 Dextrose (D50w Syringe) 25 ml Q15M PRN IV DECREASED GLUCOSE; Start 10/09/18 at 15:00 Dextrose (D50w Syringe) 50 ml Q15M PRN IV DECREASED GLUCOSE; Start 10/09/18 at 15:00 Glucagon (Glucagen) 1 mg Q15M PRN IM DECREASED GLUCOSE; Start 10/09/18 at 15:00 Glucose (Glutose) 15 gm Q15M PRN BUCCAL DECREASED GLUCOSE; Start 10/09/18 at 15:00 Sodium Chloride 500 ml @ 500 mls/hr Q1H PRN IV BLOOD PRESSURE SUPPORT Last administered on 10/10/18 07:59; Admin Dose 500 MLS/HR; Start 10/09/18 at 19:30 Albuterol (Ventolin Hfa) 4 puff Q6H RESP THERAPY INH Last administered on 10/21/18 13:45; Admin Dose 4 PUFF; Start 10/10/18 at 02:00 Ipratropium [place] (Atrovent Hfa) 4 puff Q6H RESP THERAPY INH Last administered on 10/21/18 13:45; Admin Dose 4 PUFF; Start 10/10/18 at 02:00 Methylprednisolone Sodium Succinate (Solu-Medrol) 40 mg Q8 IV Last administered on 10/21/18 14:12; Admin Dose 40 MG; Start 10/14/18 at 14:00 Lorazepam (Ativan) 1 mg Q4H PRN GTB AGITATION/ANXIETY Last administered on 10/19/18 17:35; Admin Dose 1 MG; Start 10/14/18 at 13:00 Lisinopril (Zestril) 2.5 mg DAILY PO Last administered on 10/18/18 08:28; Admin Dose 2.5 MG; Start 10/15/18 at 09:00; Status Hold Linagliptin (Tradjenta) 5 mg DAILY PO Last administered on 10/21/18 08:49; Admin Dose 5 MG; Start 10/16/18 at 10:30 Carvedilol (Coreg) 6.25 mg BID PO Last administered on 10/21/18 08:46; Admin Dose 6.25 MG; Start 10/17/18 at 21:00 Calcium Carbonate (Ca Carbonate) 1,250 mg TID GTB Last administered on 10/21/18 12:47; Admin Dose 1,250 MG; Start 10/17/18 at 14:00 Fentanyl (Duragesic 50 Mcg/Hr Patch) 1 patch Q72H TRANSDERM Last administered on 10/20/18at 23:24; Admin Dose 1 PATCH; Start 10/17/18 at 20:30 Lorazepam (Ativan) 2 mg Q6H GTB Last administered on 10/21/18 14:12; Admin Dose 2 MG; Start 10/20/18 at 15:00 Oxycodone/ Acetaminophen (Percocet (5/ 325)) 1 tab Q4H PRN PO MODERATE PAIN LEVEL 4-6 Last administered on 10/21/18at 12:47; Admin Dose 1 TAB; Start 10/20/18 at 11:30 Calcitriol (Rocaltrol) 0.5 mcg BID PO Last administered on 10/21/18at 08:45; Admin Dose 0.5 MCG; Start 10/20/18 at 21:00 Quetiapine Fumarate (Seroquel) 100 mg BID GTB ; Start 10/21/18 at 21:00 NEMO MARTINEZ M.D. Oct 21, 2018 17:59
[2018-10-21] MEDS: QUETIAPINE 100 MG TAB GTB SCH (21:13)
[2018-10-22] VITALS (35 sets, daily range): BP systolic 88–137; BP diastolic 61–99; PULSE 99–125; RESP 19–40
[2018-10-22] MEDS: ALBUTEROL HFA 8 GM INHALER INH SCH ×4 (01:23→19:54)
[2018-10-22] MEDS: IPRATROPIUM (HFA) 12.9 GM INHALER INH SCH ×4 (01:24→19:55)
[2018-10-22] MEDS: INSULIN ASPART [NOVOLOG] 3 ML PEN SC SCH ×4 (02:00→20:55)
[2018-10-22] MEDS: LORAZEPAM 1 MG TAB GTB SCH ×4 (02:07→20:28)
[2018-10-22] MEDS: HYDROmorphONE 2 MG TAB PO PRN ×3 (02:08→18:07)
[2018-10-22] MEDS: ACCU-CHEK XX SCH (02:13)
[2018-10-22] MEDS: GABAPENTIN (50 MG/ML PO SYG) GTB SCH ×3 (05:41→22:12)
[2018-10-22] MEDS: METHYLPREDNISOLONE 40 MG INJ IV SCH ×3 (05:41→22:11)
[2018-10-22] MEDS: LANSOPRAZOLE 30 MG CAP GTB SCH ×2 (05:41→18:07)
--- NOTE | 2018-10-22 07:22 | CONS ---
Assessment/Plan Assessment/Plan Problems: (1) Hypocalcemia Onset Date: ~ 10/14/2018 Status: Acute Comment: Calcium is in a nonemergency state but is a little bit lower than it was yesterday. Go ahead and give another dose IV, adjust the calcitriol dosing. And follow-up (2) Adrenal insufficiency due to steroid withdrawal Status: Chronic Comment: Stable on steroid replacement therapy. Please note he is being treat ed with stress doses by the primary team at this time (3) Diabetes mellitus type 2 in nonobese Status: Chronic Comment: Adequate control under the present time using DPP 4 inhibitor drug (4) Essential hypertension Status: Chronic Comment: Adequate control at this time (5) Quadriplegia, C5-C7, incomplete Status: Chronic Comment: Chronic issue with significant comorbidities Consultation Date/Type/Reason Admit Date/Time Oct 09, 2018 at 12:16 Initial Consult Date 10/12/18 Type of Consult Endocrinology Reason for Consultation Hypocalcemia; diabetes mellitus type 2; adrenal insufficiency due to chronic steroid use and treatment of rheumatoid arthritis; functional quadriplegia Requesting Provider: NOLA VIDAL MD Date/Time of Note DATE: 10/22/18 TIME: 07:19 24 HR Interval Summary Free Text/Dictation Patient is sleeping at this time but is arousable Detailed Summary Endocrine: no complaints Exam/Review of Systems Exam Vitals Vital Signs Date Temp Pulse Resp B/P (MAP) Pulse Ox O2 O2 Flow FiO2 Time Delivery Rate 10/22/18 103 29 108/79 100 Mechanical 06:00 (89) Ventilator 10/22/18 60 05:19 10/22/18 99.6 04:00 Intake and Output 10/21/18 10/21/18 10/22/18 1515:00 23:00 07:00 IntakeIntake Total 370 ml 420 ml 330 ml OutputOutput Total 710 ml 535 ml 125 ml BalanceBalance -340 ml -115 ml 205 ml Constitutional: alert, oriented Cardiovascular: regular rate and rhythm, nl pulses Gastrointestinal: soft, nl liver, spleen, non-tender Extremities: normal pulses Neurological: other (Negative should [place] sign) Results Result Diagram: 10/22/18 0538 10/22/18 0538 Results 24hrs Laboratory Tests Test 10/21/18 08:47 10/21/18 14:17 10/21/18 19:48 10/22/18 02:11 Bedside Glucose 163 148 177 124 Test 10/22/18 05:38 White Blood Count 21.9 H Red Blood Count 3.46 L Hemoglobin 10.0 L Hematocrit 32.4 L Mean Corpuscular Volume 93.6 Mean Corpuscular 28.9 L Hemoglobin Mean Corpuscular 30.9 L Hemoglobin Concent Red Cell Distribution 18.8 H Width Platelet Count 464 H Mean Platelet Volume 11.1 H Immature Granulocytes % 2.900 H Neutrophils % 76.1 Lymphocytes % 5.8 L Monocytes % 14.9 H Eosinophils % 0.0 Basophils % 0.3 Nucleated Red Blood 0.0 Cells % Immature Granulocytes # 0.640 H Neutrophils # 16.7 H Lymphocytes # 1.3 Monocytes # 3.3 H Eosinophils # 0.0 Basophils # 0.1 Nucleated Red Blood 0.0 Cells # Sodium Level 137 Potassium Level 4.2 Chloride Level 95 L Carbon Dioxide Level 36 H Anion Gap 6 Blood Urea Nitrogen 31 H Creatinine 0.43 L Est Glomerular Filtrat > 60 Rate mL/min Glucose Level 103 # Calcium Level 6.5 L Ionized Calcium 0.9 L (Measured) Magnesium Level 1.9 Total Bilirubin 0.2 Direct Bilirubin 0.00 Indirect Bilirubin 0.2 Aspartate Amino 29 Transf (AST/SGOT) Alanine 28 Aminotransferase (ALT/SG PT) Alkaline Phosphatase 123 H Total Protein 5.4 L Albumin 2.9 L Globulin 2.50 Albumin/Globulin Ratio 1.16 Medications Medication Current Medications Acetaminophen (Tylenol Liquid) 650 mg Q4H PRN GTB MILD PAIN(1-3)OR ELEVATED TEMP Last administered on 10/16/18at 07:52; Admin Dose 650 MG; Start 10/09/18 at 14:00 Al Hydrox/Mg Hydrox/Simethicone (Mag-Al Plus) 15 ml Q6H PRN PO GASTROINTESTINAL UPSET Last administered on 10/17/18at 13:18; Admin Dose 15 ML; Start 10/09/18 at 14:00 Eye Lubricant (Artificial Tears Oph) 1 drop Q6H PRN BOTH EYES DRY EYES; Start 10/09/18 at 14:00 Bisacodyl (Dulcolax Supp) 10 mg DAILY PRN [place] CONSTIPATION; Start 10/09/18 at 14:00 Clonidine (Catapres) 0.1 mg DAILY PRN GTB ELEVATED BLOOD PRESSURE; Start 10/09/18 at 14:00 Diltiazem HCl (Cardizem Iv) 5 mg Q4 PRN IV ELEVATED HEART RATE Last administered on 10/18/18 01:09; Admin Dose 5 MG; Start 10/09/18 at 14:00 Diphenhydramine HCl (Benadryl Liquid Cup) 25 mg Q6 PRN GTB ITCHING Last administered on 10/17/18 23:27; Admin Dose 25 MG; Start 10/09/18 at 14:00 Duloxetine HCl (Cymbalta) 30 mg DAILY PO Last administered on 10/21/18 08:45; Admin Dose 30 MG; Start 10/10/18 at 09:00 Epoetin Arpan (Epogen (Esrd)) 10,000 units TuSa@1300 SC Last administered on 10/18/18 13:32; Admin Dose 10,000 UNITS; Start 10/11/18 at 13:00 Gabapentin (Neurontin Liquid) 400 mg Q8 GTB Last administered on 10/22/18 05:41; Admin Dose 400 MG; Start 10/09/18 at 15:30 Hydralazine HCl (Apresoline) 10 mg Q4H PRN IV ELEVATED BLOOD PRESSURE; Start 10/09/18 at 14:00 Hydroxychloroquine Sulfate (Plaquenil) 200 mg BID PO Last administered on 10/21/18 21:14; Admin Dose 200 MG; Start 10/09/18 at 21:00 Diagnostic Test (Pha) (Accu-Chek) 1 ea 02 XX Last administered on 10/22/18 02:13; Admin Dose 1 EA; Start 10/10/18 at 02:00 Insulin Aspart (Novolog Insulin Pen) NOVOLOG *CUSTOM* ALGORITHM Q6H SC Last administered on 10/21/18 19:55; Admin Dose 1 UNIT; Start 10/09/18 at 14:00 Lactobacillus Acidophilus (Florajen3 Capsule) 1 each BID GTB Last administered on 10/21/18 21:30; Admin Dose 1 EACH; Start 10/09/18 at 21:00 Lansoprazole (Prevacid) 30 mg BID@06,18 GTB Last administered on 10/22/18 05:41; Admin Dose 30 MG; Start 10/09/18 at 18:00 Levetiracetam (Keppra Liquid) 500 mg BID GTB Last administered on 10/21/18 21:13; Admin Dose 500 MG; Start 10/09/18 at 21:00 Magnesium Oxide (Mag-Ox 400) 400 mg BID GTB Last administered on 10/21/18 21:13; Admin Dose 400 MG; Start 10/09/18 at 21:00 Metoclopramide HCl (Reglan) 10 mg TID IV Last administered on 10/21/18 21:13; Admin Dose 10 MG; Start 10/09/18 at 21:00 Miconazole Nitrate (Miconazole 2% Cr) 1 applic BID TOP Last administered on 10/21/18 21:15; Admin Dose 1 APPLIC; Start 10/09/18 at 21:00 Miconazole Nitrate (Miconazole 2% Cr) 1 applic Q12 PRN TOP rash; Start 10/09/18 at 14:00 Ondansetron HCl (Zofran Inj) 4 mg Q4H PRN IV NAUSEA AND/OR VOMITING Last administered on 10/19/18at 16:37; Admin Dose 4 MG; Start 10/09/18 at 14:00 Polyethylene Glycol (Miralax) 17 gm DAILY PRN GTB CONSTIPATION; Start 10/09/18 at 14:00 Senna (Senokot) 2 tab Q8 PRN PO CONSTIPATION; Start 10/09/18 at 14:00 Trimethoprim/ Sulfamethoxazole (Bactrim Susp) 40 ml DAILY GTB Last administered on 10/21/18 08:44; Admin Dose 40 ML; Start 10/10/18 at 09:00 Zolpidem Tartrate (Ambien) 5 mg HS PRN PO INSOMNIA Last administered on 10/21/18 02:34; Admin Dose 5 MG; Start 10/09/18 at 14:00 Miscellaneous Information 1 ea NOTE XX ; Start 10/09/18 at 15:00 Glucose (Glutose) 15 gm Q15M PRN PO DECREASED GLUCOSE; Start 10/09/18 at 15:00 Glucose (Glutose) 22.5 gm Q15M PRN PO DECREASED GLUCOSE; Start 10/09/18 at 15:00 Dextrose (D50w Syringe) 25 ml Q15M PRN IV DECREASED GLUCOSE; Start 10/09/18 at 15:00 Dextrose (D50w Syringe) 50 ml Q15M PRN IV DECREASED GLUCOSE; Start 10/09/18 at 15:00 Glucagon (Glucagen) 1 mg Q15M PRN IM DECREASED GLUCOSE; Start 10/09/18 at 15:00 Glucose (Glutose) 15 gm Q15M PRN BUCCAL DECREASED GLUCOSE; Start 10/09/18 at 15:00 Sodium Chloride 500 ml @ 500 mls/hr Q1H PRN IV BLOOD PRESSURE SUPPORT Last administered on 10/10/18 07:59; Admin Dose 500 MLS/HR; Start 10/09/18 at 19:30 Albuterol (Ventolin Hfa) 4 puff Q6H RESP THERAPY INH Last administered on 10/22/18 01:23; Admin Dose 4 PUFF; Start 10/10/18 at 02:00 Ipratropium [place] (Atrovent Hfa) 4 puff Q6H RESP THERAPY INH Last administered on 10/22/18 01:24; Admin Dose 4 PUFF; Start 10/10/18 at 02:00 Methylprednisolone Sodium Succinate (Solu-Medrol) 40 mg Q8 IV Last administered on 10/22/18 05:41; Admin Dose 40 MG; Start 10/14/18 at 14:00 Lorazepam (Ativan) 1 mg Q4H PRN GTB AGITATION/ANXIETY Last administered on 10/19/18 17:35; Admin Dose 1 MG; Start 10/14/18 at 13:00 Lisinopril (Zestril) 2.5 mg DAILY PO Last administered on 10/18/18 08:28; Admin Dose 2.5 MG; Start 10/15/18 at 09:00; Status Hold Linagliptin (Tradjenta) 5 mg DAILY PO Last administered on 10/21/18 08:49; Admin Dose 5 MG; Start 10/16/18 at 10:30 Carvedilol (Coreg) 6.25 mg BID PO Last administered on 10/21/18 21:14; Admin Dose 6.25 MG; Start 10/17/18 at 21:00 Calcium Carbonate (Ca Carbonate) 1,250 mg TID GTB Last administered on 10/21/18 21:13; Admin Dose 1,250 MG; Start 10/17/18 at 14:00 Fentanyl (Duragesic 50 Mcg/Hr Patch) 1 patch Q72H TRANSDERM Last administered on 10/20/18 23:24; Admin Dose 1 PATCH; Start 10/17/18 at 20:30 Lorazepam (Ativan) 2 mg Q6H GTB Last administered on 10/22/18 02:07; Admin Dose 2 MG; Start 10/20/18 at 15:00 Calcitriol (Rocaltrol) 0.5 mcg BID PO Last administered on 10/21/18 21:30; Admin Dose 0.5 MCG; Start 10/20/18 at 21:00 Quetiapine Fumarate (Seroquel) 100 mg BID GTB Last administered on 10/21/18 21:13; Admin Dose 100 MG; Start 10/21/18 at 21:00 Hydromorphone HCl (Dilaudid) 6 mg Q4H PRN PO MODERATE PAIN LEVEL 7-10 Last administered on 10/22/18 02:08; Admin Dose 6 MG; Start 10/21/18 at 22:00 KEV ISSA MD Oct 22, 2018 07:22
[2018-10-22] MEDS ORDERED: CALCIUM GLUCONATE 10% 2 GM in DEXTROSE 5% 100 ML IVPB ONE (09:00)
[2018-10-22] MEDS ORDERED: CALCITRIOL 1 MCG INJ IV ONE (09:00)
[2018-10-22] MEDS ORDERED: ERGOCALCIFEROL (8000 UNITS/ML PO SYG) PEG ONE (09:00)
--- NOTE | 2018-10-22 09:20 | PN ---
Date/Time of Note Date/Time of Note DATE: 10/22/18 TIME: 09:19 Assessment/Plan VTE Prophylaxis Risk score (from Ns)>0 risk: 8 SCD applied (from Ns): Yes Pharmacological prophylaxis: LMWH Lines/Catheters IV Catheter Type (from [facility]): Mid Line Urinary Cath still in place: No (Condom Cath) Assessment/Plan Hospital Course - Hypomagnesium- replaced per nephro- am Mag lab - Acute on chronic hypoxemic respiratory failure with underlying ARDS, continue ventilatory support. - Dr. Villa is following in pulmonology consultation. - Acute kidney injury, continue to monitor BUN and creatinine. G-tube feeding changed to renal source. - Dr. Hobson is following in nephrology consultation. - Leukocytosis 2/2 steroid dependency 2/2 RA - afebrile; BS stable -ID follows -Tachycardia, Dr. Joshi is following in cardiology consultation. - Cardiomyopathy with EF 35-40% - Rheumatoid arthritis with steroid dependence. The patient's pain seems to be controlled with the current dose of fentanyl. - Dysphagia. Continue GT feeding. - Anemia of chronic disease. - Thrombocytosis- monitor - Hypoparathyroidism with recent hypercalcemia, status post pamidronate, resolved. - Hypertension. - Functional quadriplegia - Hx of severe cervical spinal cord stenosis with cord compression from C3-C5, s/p laminectomy. - History of fibromyalgia rheumatica - Hx of VAT on 08/11/2018 Result Diagram: 10/22/18 0538 10/22/18 0538 Results 24hrs Laboratory Tests Test 10/21/18 14:17 10/21/18 19:48 10/22/18 02:11 10/22/18 05:38 Bedside Glucose 148 177 124 White Blood Count 21.9 H Red Blood Count 3.46 L Hemoglobin 10.0 L Hematocrit 32.4 L Mean Corpuscular Volume 93.6 Mean Corpuscular 28.9 L Hemoglobin Mean Corpuscular 30.9 L Hemoglobin Concent Red Cell Distribution 18.8 H Width Platelet Count 464 H Mean Platelet Volume 11.1 H Immature Granulocytes % 2.900 H Neutrophils % 76.1 Lymphocytes % 5.8 L Monocytes % 14.9 H Eosinophils % 0.0 Basophils % 0.3 Nucleated Red Blood 0.0 Cells % Immature Granulocytes # 0.640 H Neutrophils # 16.7 H Lymphocytes # 1.3 Monocytes # 3.3 H Eosinophils # 0.0 Basophils # 0.1 Nucleated Red Blood 0.0 Cells # Sodium Level 137 Potassium Level 4.2 Chloride Level 95 L Carbon Dioxide Level 36 H Anion Gap 6 Blood Urea Nitrogen 31 H Creatinine 0.43 L Est Glomerular Filtrat > 60 Rate mL/min Glucose Level 103 # Calcium Level 6.5 L Ionized Calcium 0.9 L (Measured) Magnesium Level 1.9 Total Bilirubin 0.2 Direct Bilirubin 0.00 Indirect Bilirubin 0.2 Aspartate Amino 29 Transf (AST/SGOT) Alanine 28 Aminotransferase (ALT/SG PT) Alkaline Phosphatase 123 H Total Protein 5.4 L Albumin 2.9 L Globulin 2.50 Albumin/Globulin Ratio 1.16 Subjective 24 Hr Interval Summary Free Text/Dictation Patient awake but complains of pain, is requiring high levels of oxygen Exam/Review of Systems Exam Vitals Vital Signs Date Temp Pulse Resp B/P (MAP) Pulse Ox O2 O2 Flow FiO2 Time Delivery Rate 10/22/18 103 29 108/79 100 Mechanical 06:00 (89) Ventilator 10/22/18 60 05:19 10/22/18 99.6 04:00 Intake and Output 10/21/18 10/21/18 10/22/18 1515:00 23:00 07:00 IntakeIntake Total 370 ml 420 ml 330 ml OutputOutput Total 710 ml 535 ml 125 ml BalanceBalance -340 ml -115 ml 205 ml Constitutional: well developed Head: normocephalic, atraumatic Neck: supple Respiratory: diminished breath sounds Cardiovascular: regular rate and rhythm Gastrointestinal: soft, non-tender Extremities: normal pulses Results Results 24hrs Laboratory Tests Test 10/21/18 14:17 10/21/18 19:48 10/22/18 02:11 10/22/18 05:38 Bedside Glucose 148 177 124 White Blood Count 21.9 H Red Blood Count 3.46 L Hemoglobin 10.0 L Hematocrit 32.4 L Mean Corpuscular Volume 93.6 Mean Corpuscular 28.9 L Hemoglobin Mean Corpuscular 30.9 L Hemoglobin Concent Red Cell Distribution 18.8 H Width Platelet Count 464 H Mean Platelet Volume 11.1 H Immature Granulocytes % 2.900 H Neutrophils % 76.1 Lymphocytes % 5.8 L Monocytes % 14.9 H Eosinophils % 0.0 Basophils % 0.3 Nucleated Red Blood 0.0 Cells % Immature Granulocytes # 0.640 H Neutrophils # 16.7 H Lymphocytes # 1.3 Monocytes # 3.3 H Eosinophils # 0.0 Basophils # 0.1 Nucleated Red Blood 0.0 Cells # Sodium Level 137 Potassium Level 4.2 Chloride Level 95 L Carbon Dioxide Level 36 H Anion Gap 6 Blood Urea Nitrogen 31 H Creatinine 0.43 L Est Glomerular Filtrat > 60 Rate mL/min Glucose Level 103 # Calcium Level 6.5 L Ionized Calcium 0.9 L (Measured) Magnesium Level 1.9 Total Bilirubin 0.2 Direct Bilirubin 0.00 Indirect Bilirubin 0.2 Aspartate Amino 29 Transf (AST/SGOT) Alanine 28 Aminotransferase (ALT/SG PT) Alkaline Phosphatase 123 H Total Protein 5.4 L Albumin 2.9 L Globulin 2.50 Albumin/Globulin Ratio 1.16 Medications Medication Current Medications Acetaminophen (Tylenol Liquid) 650 mg Q4H PRN GTB MILD PAIN(1-3)OR ELEVATED TEMP Last administered on 10/16/18 07:52; Admin Dose 650 MG; Start 10/09/18 at 14:00 Al Hydrox/Mg Hydrox/Simethicone (Mag-Al Plus) 15 ml Q6H PRN PO GASTROINTESTINAL UPSET Last administered on 10/17/18 13:18; Admin Dose 15 ML; Start 10/09/18 at 14:00 Eye Lubricant (Artificial Tears Oph) 1 drop Q6H PRN BOTH EYES DRY EYES; Start 10/09/18 at 14:00 Bisacodyl (Dulcolax Supp) 10 mg DAILY PRN [place] CONSTIPATION; Start 10/09/18 at 14:00 Clonidine (Catapres) 0.1 mg DAILY PRN GTB ELEVATED BLOOD PRESSURE; Start 10/09/18 at 14:00 Diltiazem HCl (Cardizem Iv) 5 mg Q4 PRN IV ELEVATED HEART RATE Last administered on 10/18/18 01:09; Admin Dose 5 MG; Start 10/09/18 at 14:00 Diphenhydramine HCl (Benadryl Liquid Cup) 25 mg Q6 PRN GTB ITCHING Last administered on 10/17/18 23:27; Admin Dose 25 MG; Start 10/09/18 at 14:00 Duloxetine HCl (Cymbalta) 30 mg DAILY PO Last administered on 10/21/18at 08:45; Admin Dose 30 MG; Start 10/10/18 at 09:00 Epoetin Arpan (Epogen (Esrd)) 10,000 units TuSa@1300 SC Last administered on 10/18/18 13:32; Admin Dose 10,000 UNITS; Start 10/11/18 at 13:00 Gabapentin (Neurontin Liquid) 400 mg Q8 GTB Last administered on 10/22/18 05:41; Admin Dose 400 MG; Start 10/09/18 at 15:30 Hydralazine HCl (Apresoline) 10 mg Q4H PRN IV ELEVATED BLOOD PRESSURE; Start 10/09/18 at 14:00 Hydroxychloroquine Sulfate (Plaquenil) 200 mg BID PO Last administered on 10/21/18 21:14; Admin Dose 200 MG; Start 10/09/18 at 21:00 Diagnostic Test (Pha) (Accu-Chek) 1 ea 02 XX Last administered on 10/22/18 02:13; Admin Dose 1 EA; Start 10/10/18 at 02:00 Insulin Aspart (Novolog Insulin Pen) NOVOLOG *CUSTOM* ALGORITHM Q6H SC Last administered on 10/21/18 19:55; Admin Dose 1 UNIT; Start 10/09/18 at 14:00 Lactobacillus Acidophilus (Florajen3 Capsule) 1 each BID GTB Last administered on 10/21/18 21:30; Admin Dose 1 EACH; Start 10/09/18 at 21:00 Lansoprazole (Prevacid) 30 mg BID@06,18 GTB Last administered on 10/22/18 05:41; Admin Dose 30 MG; Start 10/09/18 at 18:00 Levetiracetam (Keppra Liquid) 500 mg BID GTB Last administered on 10/21/18 21:13; Admin Dose 500 MG; Start 10/09/18 at 21:00 Magnesium Oxide (Mag-Ox 400) 400 mg BID GTB Last administered on 10/21/18 21:13; Admin Dose 400 MG; Start 10/09/18 at 21:00 Metoclopramide HCl (Reglan) 10 mg TID IV Last administered on 10/21/18 21:13; Admin Dose 10 MG; Start 10/09/18 at 21:00 Miconazole Nitrate (Miconazole 2% Cr) 1 applic BID TOP Last administered on 10/21/18 21:15; Admin Dose 1 APPLIC; Start 10/09/18 at 21:00 Miconazole Nitrate (Miconazole 2% Cr) 1 applic Q12 PRN TOP rash; Start 10/09/18 at 14:00 Ondansetron HCl (Zofran Inj) 4 mg Q4H PRN IV NAUSEA AND/OR VOMITING Last administered on 10/19/18at 16:37; Admin Dose 4 MG; Start 10/09/18 at 14:00 Polyethylene Glycol (Miralax) 17 gm DAILY PRN GTB CONSTIPATION; Start 10/09/18 at 14:00 Senna (Senokot) 2 tab Q8 PRN PO CONSTIPATION; Start 10/09/18 at 14:00 Trimethoprim/ Sulfamethoxazole (Bactrim Susp) 40 ml DAILY GTB Last administered on 10/21/18 08:44; Admin Dose 40 ML; Start 10/10/18 at 09:00 Zolpidem Tartrate (Ambien) 5 mg HS PRN PO INSOMNIA Last administered on 10/21/18at 02:34; Admin Dose 5 MG; Start 10/09/18 at 14:00 Miscellaneous Information 1 ea NOTE XX ; Start 10/09/18 at 15:00 Glucose (Glutose) 15 gm Q15M PRN PO DECREASED GLUCOSE; Start 10/09/18 at 15:00 Glucose (Glutose) 22.5 gm Q15M PRN PO DECREASED GLUCOSE; Start 10/09/18 at 15:00 Dextrose (D50w Syringe) 25 ml Q15M PRN IV DECREASED GLUCOSE; Start 10/09/18 at 15:00 Dextrose (D50w Syringe) 50 ml Q15M PRN IV DECREASED GLUCOSE; Start 10/09/18 at 15:00 Glucagon (Glucagen) 1 mg Q15M PRN IM DECREASED GLUCOSE; Start 10/09/18 at 15:00 Glucose (Glutose) 15 gm Q15M PRN BUCCAL DECREASED GLUCOSE; Start 10/09/18 at 15:00 Sodium Chloride 500 ml @ 500 mls/hr Q1H PRN IV BLOOD PRESSURE SUPPORT Last administered on 10/10/18 07:59; Admin Dose 500 MLS/HR; Start 10/09/18 at 19:30 Albuterol (Ventolin Hfa) 4 puff Q6H RESP THERAPY INH Last administered on 10/22/18 01:23; Admin Dose 4 PUFF; Start 10/10/18 at 02:00 Ipratropium [place] (Atrovent Hfa) 4 puff Q6H RESP THERAPY INH Last administered on 10/22/18 01:24; Admin Dose 4 PUFF; Start 10/10/18 at 02:00 Methylprednisolone Sodium Succinate (Solu-Medrol) 40 mg Q8 IV Last administered on 10/22/18 05:41; Admin Dose 40 MG; Start 10/14/18 at 14:00 Lorazepam (Ativan) 1 mg Q4H PRN GTB AGITATION/ANXIETY Last administered on 10/19/18 17:35; Admin Dose 1 MG; Start 10/14/18 at 13:00 Lisinopril (Zestril) 2.5 mg DAILY PO Last administered on 10/18/18 08:28; Admin Dose 2.5 MG; Start 10/15/18 at 09:00 Linagliptin (Tradjenta) 5 mg DAILY PO Last administered on 10/21/18 08:49; Admin Dose 5 MG; Start 10/16/18 at 10:30 Carvedilol (Coreg) 6.25 mg BID PO Last administered on 10/21/18 21:14; Admin Do se 6.25 MG; Start 10/17/18 at 21:00 Calcium Carbonate (Ca Carbonate) 1,250 mg TID GTB Last administered on 10/21/18 21:13; Admin Dose 1,250 MG; Start 10/17/18 at 14:00 Fentanyl (Duragesic 50 Mcg/Hr Patch) 1 patch Q72H TRANSDERM Last administered on 10/20/18 23:24; Admin Dose 1 PATCH; Start 10/17/18 at 20:30 Lorazepam (Ativan) 2 mg Q6H GTB Last administered on 10/22/18 02:07; Admin Dose 2 MG; Start 10/20/18 at 15:00 Quetiapine Fumarate (Seroquel) 100 mg BID GTB Last administered on 10/21/18 21:13; Admin Dose 100 MG; Start 10/21/18 at 21:00 Hydromorphone HCl (Dilaudid) 6 mg Q4H PRN PO MODERATE PAIN LEVEL 7-10 Last administered on 3/9/19at 02:08; Admin Dose 6 MG; Start 10/21/18 at 22:00 Calcitriol (Rocaltrol) 0.5 mcg TID PO ; Start 10/22/18 at 09:00 Calcium Gluconate 2 gm/Dextrose 120 ml @ 60 mls/hr ONCE ONCE IVPB ; Start 10/22/18 at 09:00; Stop 10/22/18 at 10:59 ANGELES HO Oct 22, 2018 09:20
[2018-10-22] MEDS: LEVETIRACETAM (100 MG/ML) 5ML CUP GTB SCH ×2 (09:54→20:23)
[2018-10-22] MEDS: TRIMETHOPRIM/SULFAMETHOX (PO SYG) GTB SCH (09:54)
[2018-10-22] MEDS: MICONAZOLE 2% 30 GM CR TOP SCH ×2 (09:54→20:22)
[2018-10-22] MEDS: CA CARBONATE (250 MG/ML) 5ML CUP GTB SCH ×3 (09:54→20:23)
[2018-10-22] MEDS: BALSAM PERU/CASTOR OIL 60 GM TUBE TOP SCH ×2 (09:54→20:22)
[2018-10-22] MEDS: QUETIAPINE 100 MG TAB GTB SCH ×2 (09:55→20:25)
[2018-10-22] MEDS: L ACIDOPHIL/B LACTIS/B LONGUM CAPSULE GTB SCH ×2 (09:55→20:25)
[2018-10-22] MEDS: METOCLOPRAMIDE 10 MG INJ IV SCH ×3 (09:55→20:25)
[2018-10-22] MEDS: MAGNESIUM OXIDE 400 MG TAB GTB SCH ×2 (09:55→20:23)
[2018-10-22] MEDS: HYDROXYCHLOROQUINE 200 MG TAB PO SCH ×2 (09:55→20:26)
[2018-10-22] MEDS: LISINOPRIL 5 MG TAB PO SCH (09:55)
[2018-10-22] MEDS: LINAGLIPTIN 5 MG TABLET PO SCH (09:56)
[2018-10-22] MEDS: CALCITRIOL 0.25 MCG CAP PO SCH ×3 (09:56→20:23)
[2018-10-22] MEDS: DULOXETINE 30 MG CAP DR PO SCH (09:56)
--- NOTE | 2018-10-22 10:26 | CONS ---
Consult Date/Type/Reason Admit Date/Time Oct 09, 2018 at 12:16 Initial Consult Date 10/09/18 Type of Consult Pulmonary Requesting Provider: NOLA VIDAL MD Date/Time of Note DATE: 10/22/18 TIME: 10:25 Subjective Patient remained stable. No new events continues mechanical ventilation less agitated FiO2 at 50%. Objective Vital Signs Date Temp Pulse Resp B/P (MAP) Pulse Ox O2 O2 Flow FiO2 Time Delivery Rate 10/22/18 112 08:00 10/22/18 29 108/79 100 Mechanical 06:00 (89) Ventilator 10/22/18 60 05:19 10/22/18 99.6 04:00 Intake and Output 10/21/18 10/21/18 10/22/18 1515:00 23:00 07:00 IntakeIntake Total 370 ml 420 ml 330 ml OutputOutput Total 710 ml 535 ml 125 ml BalanceBalance -340 ml -115 ml 205 ml Exam GENERAL: Elderly appearing gentleman on mechanical ventilation via tracheostomy VITAL SIGNS: per chart NECK: Supple. No JVD or lymphadenopathy. CARDIAC EXAM: S1, S2. No added sounds or murmurs. CHEST: Diminished air entry bilaterally with rales ABDOMEN: Soft, nontender. No guarding or rebound. EXTREMITIES: No cyanosis, clubbing or edema. NEUROLOGIC: Generalized weakness. No focal deficits. Vent Setting Ventilator Support Mode: AC, VC plus Fraction of Inspired Oxygen pe: 60 Positive End Expiratory Pressu: 5.0 Results/Medications Result Diagram: 10/22/18 0538 10/22/18 0538 Results 24 hrs Laboratory Tests Test 10/21/18 14:17 10/21/18 19:48 10/22/18 02:11 10/22/18 05:38 Bedside Glucose 148 177 124 White Blood Count 21.9 H Red Blood Count 3.46 L Hemoglobin 10.0 L Hematocrit 32.4 L Mean Corpuscular Volume 93.6 Mean Corpuscular 28.9 L Hemoglobin Mean Corpuscular 30.9 L Hemoglobin Concent Red Cell Distribution 18.8 H Width Platelet Count 464 H Mean Platelet Volume 11.1 H Immature Granulocytes % 2.900 H Neutrophils % 76.1 Lymphocytes % 5.8 L Monocytes % 14.9 H Eosinophils % 0.0 Basophils % 0.3 Nucleated Red Blood 0.0 Cells % Immature Granulocytes # 0.640 H Neutrophils # 16.7 H Lymphocytes # 1.3 Monocytes # 3.3 H Eosinophils # 0.0 Basophils # 0.1 Nucleated Red Blood 0.0 Cells # Sodium Level 137 Potassium Level 4.2 Chloride Level 95 L Carbon Dioxide Level 36 H Anion Gap 6 Blood Urea Nitrogen 31 H Creatinine 0.43 L Est Glomerular Filtrat > 60 Rate mL/min Glucose Level 103 # Calcium Level 6.5 L Ionized Calcium 0.9 L (Measured) Magnesium Level 1.9 Total Bilirubin 0.2 Direct Bilirubin 0.00 Indirect Bilirubin 0.2 Aspartate Amino 29 Transf (AST/SGOT) Alanine 28 Aminotransferase (ALT/SG PT) Alkaline Phosphatase 123 H Total Protein 5.4 L Albumin 2.9 L Globulin 2.50 Albumin/Globulin Ratio 1.16 Medications Current Medications Acetaminophen (Tylenol Liquid) 650 mg Q4H PRN GTB MILD PAIN(1-3)OR ELEVATED TEMP Last administered on 10/16/18 07:52; Admin Dose 650 MG; Start 10/09/18 at 14:00 Al Hydrox/Mg Hydrox/Simethicone (Mag-Al Plus) 15 ml Q6H PRN PO GASTROINTESTINAL UPSET Last administered on 10/17/18 13:18; Admin Dose 15 ML; Start 10/09/18 at 14:00 Eye Lubricant (Artificial Tears Oph) 1 drop Q6H PRN BOTH EYES DRY EYES; Start 10/09/18 at 14:00 Bisacodyl (Dulcolax Supp) 10 mg DAILY PRN [place] CONSTIPATION; Start 10/09/18 at 14:00 Clonidine (Catapres) 0.1 mg DAILY PRN GTB ELEVATED BLOOD PRESSURE; Start 10/09/18 at 14:00 Diltiazem HCl (Cardizem Iv) 5 mg Q4 PRN IV ELEVATED HEART RATE Last administered on 10/18/18 01:09; Admin Dose 5 MG; Start 10/09/18 at 14:00 Diphenhydramine HCl (Benadryl Liquid Cup) 25 mg Q6 PRN GTB ITCHING Last administered on 10/17/18 23:27; Admin Dose 25 MG; Start 10/09/18 at 14:00 Duloxetine HCl (Cymbalta) 30 mg DAILY PO Last administered on 10/22/18 09:56; Admin Dose 30 MG; Start 10/10/18 at 09:00 Epoetin Arpan (Epogen (Esrd)) 10,000 units TuSa@1300 SC Last administered on 13:32; Admin Dose 10,000 UNITS; Start 10/11/18 at 13:00 Gabapentin (Neurontin Liquid) 400 mg Q8 GTB Last administered on 10/22/18 05:41; Admin Dose 400 MG; Start 10/09/18 at 15:30 Hydralazine HCl (Apresoline) 10 mg Q4H PRN IV ELEVATED BLOOD PRESSURE; Start 10/09/18 at 14:00 Hydroxychloroquine Sulfate (Plaquenil) 200 mg BID PO Last administered on 10/22/18 09:55; Admin Dose 200 MG; Start 10/09/18 at 21:00 Diagnostic Test (Pha) (Accu-Chek) 1 ea 02 XX Last administered on 10/22/18 02:13; Admin Dose 1 EA; Start 10/10/18 at 02:00 Insulin Aspart (Novolog Insulin Pen) NOVOLOG *CUSTOM* ALGORITHM Q6H SC Last administered on 10/21/18 19:55; Admin Dose 1 UNIT; Start 10/09/18 at 14:00 Lactobacillus Acidophilus (Florajen3 Capsule) 1 each BID GTB Last administered on 10/22/18 09:55; Admin Dose 1 EACH; Start 10/09/18 at 21:00 Lansoprazole (Prevacid) 30 mg BID@06,18 GTB Last administered on 10/22/18 05:41; Admin Dose 30 MG; Start 10/09/18 at 18:00 Levetiracetam (Keppra Liquid) 500 mg BID GTB Last administered on 10/22/18 09:54; Admin Dose 500 MG; Start 10/09/18 at 21:00 Magnesium Oxide (Mag-Ox 400) 400 mg BID GTB Last administered on 10/22/18 09:55; Admin Dose 400 MG; Start 10/09/18 at 21:00 Metoclopramide HCl (Reglan) 10 mg TID IV Last administered on 10/22/18 09:55; Admin Dose 10 MG; Start 10/09/18 at 21:00 Miconazole Nitrate (Miconazole 2% Cr) 1 applic BID TOP Last administered on 3/9/19at 09:54; Admin Dose 1 APPLIC; Start 10/09/18 at 21:00 Miconazole Nitrate (Miconazole 2% Cr) 1 applic Q12 PRN TOP rash; Start 10/09/18 at 14:00 Ondansetron HCl (Zofran Inj) 4 mg Q4H PRN IV NAUSEA AND/OR VOMITING Last administered on 10/19/18at 16:37; Admin Dose 4 MG; Start 10/09/18 at 14:00 Polyethylene Glycol (Miralax) 17 gm DAILY PRN GTB CONSTIPATION; Start 10/09/18 at 14:00 Senna (Senokot) 2 tab Q8 PRN PO CONSTIPATION; Start 10/09/18 at 14:00 Trimethoprim/ Sulfamethoxazole (Bactrim Susp) 40 ml DAILY GTB Last administered on 10/22/18at 09:54; Admin Dose 40 ML; Start 10/10/18 at 09:00 Zolpidem Tartrate (Ambien) 5 mg HS PRN PO INSOMNIA Last administered on 10/21/18at 02:34; Admin Dose 5 MG; Start 10/09/18 at 14:00 Miscellaneous Information 1 ea NOTE XX ; Start 10/09/18 at 15:00 Glucose (Glutose) 15 gm Q15M PRN PO DECREASED GLUCOSE; Start 10/09/18 at 15:00 Glucose (Glutose) 22.5 gm Q15M PRN PO DECREASED GLUCOSE; Start 10/09/18 at 15:00 Dextrose (D50w Syringe) 25 ml Q15M PRN IV DECREASED GLUCOSE; Start 10/09/18 at 15:00 Dextrose (D50w Syringe) 50 ml Q15M PRN IV DECREASED GLUCOSE; Start 10/09/18 at 15:00 Glucagon (Glucagen) 1 mg Q15M PRN IM DECREASED GLUCOSE; Start 10/09/18 at 15:00 Glucose (Glutose) 15 gm Q15M PRN BUCCAL DECREASED GLUCOSE; Start 10/09/18 at 15:00 Sodium Chloride 500 ml @ 500 mls/hr Q1H PRN IV BLOOD PRESSURE SUPPORT Last administered on 10/10/18at 07:59; Admin Dose 500 MLS/HR; Start 10/09/18 at 19:30 Albuterol (Ventolin Hfa) 4 puff Q6H RESP THERAPY INH Last administered on 10/22/18at 01:23; Admin Dose 4 PUFF; Start 10/10/18 at 02:00 Ipratropium [place] (Atrovent Hfa) 4 puff Q6H RESP THERAPY INH Last administered on 10/22/18 01:24; Admin Dose 4 PUFF; Start 10/10/18 at 02:00 Methylprednisolone Sodium Succinate (Solu-Medrol) 40 mg Q8 IV Last administered on 10/22/18 05:41; Admin Dose 40 MG; Start 10/14/18 at 14:00 Lorazepam (Ativan) 1 mg Q4H PRN GTB AGITATION/ANXIETY Last administered on 10/19/18 17:35; Admin Dose 1 MG; Start 10/14/18 at 13:00 Lisinopril (Zestril) 2.5 mg DAILY PO Last administered on 10/22/18 09:55; Admin Dose 2.5 MG; Start 10/15/18 at 09:00 Linagliptin (Tradjenta) 5 mg DAILY PO Last administered on 10/22/18 09:56; Admin Dose 5 MG; Start 10/16/18 at 10:30 Carvedilol (Coreg) 6.25 mg BID PO Last administered on 10/22/18 09:56; Admin Dose 6.25 MG; Start 10/17/18 at 21:00 Calcium Carbonate (Ca Carbonate) 1,250 mg TID GTB Last administered on 10/22/18 09:54; Admin Dose 1,250 MG; Start 10/17/18 at 14:00 Fentanyl (Duragesic 50 Mcg/Hr Patch) 1 patch Q72H TRANSDERM Last administered on 10/20/18 23:24; Admin Dose 1 PATCH; Start 10/17/18 at 20:30 Lorazepam (Ativan) 2 mg Q6H GTB Last administered on 10/22/18 09:55; Admin Dose 2 MG; Start 10/20/18 at 15:00 Quetiapine Fumarate (Seroquel) 100 mg BID GTB Last administered on 10/22/18 09:55; Admin Dose 100 MG; Start 10/21/18 at 21:00 Hydromorphone HCl (Dilaudid) 6 mg Q4H PRN PO MODERATE PAIN LEVEL 7-10 Last administered on 10/22/18 02:08; Admin Dose 6 MG; Start 10/21/18 at 22:00 Calcitriol (Rocaltrol) 0.5 mcg TID PO Last administered on 10/22/18at 09:56; Admin Dose 0.5 MCG; Start 10/22/18 at 09:00 Calcium Gluconate 2 gm/Dextrose 120 ml @ 60 mls/hr ONCE ONCE IVPB Last administered on 10/22/18at 09:54; Admin Dose 60 MLS/HR; Start 10/22/18 at 09:00; Stop 10/22/18 at 10:59 Assessment/Plan Hospital Course (Demo Recall) IMP: 1. Acute on chronic hypoxemic respiratory failure with underlying acute respiratory distress syndrome. 2. History of HSV esophagitis. 3. Chronic sepsis. 4. History of rheumatoid arthritis. 5. C-spine disease with functional quadriplegia. 6. Dysphagia with G-tube. PLAN: 1. Continue mechanical, decrease FiO2 as tolerated 2. Continue tube feeding 3. Rule out TB ID 4. PT eval as tolerated Transfer to telemetry when bed available Critical care time 40 minutes DALTON DURBIN MD, [facility] Oct 22, 2018 10:26
--- NOTE | 2018-10-22 10:27 | PN ---
DATE: 10/22/2018 SUBJECTIVE: The patient remains in a serious but stable condition on high FIO2 of 60%. No other janette nts noted. OBJECTIVE: VITAL SIGNS: Blood pressure is 108/79, respirations 29, pulse 103, temperature 98.6. HEENT: Head is normocephalic. NECK: Supple. HEART: Regular rate. LUNGS: Show diminished breath sounds at the base. ABDOMEN: Soft, nontender to palpation without rebound or guarding. EXTREMITIES: Negative for clubbing, cyanosis, no edema. DERMATOLOGIC: No rashes. MUSCULOSKELETAL: No joint effusion. NEUROLOGIC: No change in exam. MEDICATIONS: Reviewed. LABORATORY DATA: Shows white count 21.9, hemoglobin 10.0, platelet count is 464. Sodium 137, potass ium 4.2, hematocrit 31.43, calcium 6.5. ASSESSMENT AND PLAN: 1. Hyperkalemia. Etiology is multifactorial, resolved. Continue to monitor. 2. Mild hyponatremia, improved. The patient's free water flushes were adjusted. 3. Nonoliguric acute kidney injury. Etiology is secondary to hemodynamics. Renal function is impro lori. Continue to monitor. 4. Mineral bone disorder. Patient is status post pamidronate for underlying hypercalcemia. The pat ient is currently receiving vitamin D analogs, calcium carbonate. Will continue. 5. Ventilator-dependent respiratory failure. Vent settings and ABG reviewed. Continue to monitor. 6. Adrenal insufficiency. Continue Cortef. 7. Dysphagia. Continue tube feeding. 8. Sepsis secondary to pneumonia. Patient completing antibiotic course. 9. Hypertension. Continue to monitor. 10. Tachyarrhythmia. Continue current medical management. 10. Seizure disorder. Continue current medical management. 12. Hypomagnesemia. Continue to monitor and replete. 13. Chronic pain syndrome. Dictated By: UNA HONG/EFREN Conf#: [id number] DID#: [id number]
--- NOTE | 2018-10-22 10:33 | CONS ---
Assessment/Plan Assessment/Plan Hospital Course (Demo Recall) IAssessment/Plan (Daily) Interval History- No acute events overnight, tolerating tube feeds well, no residue, on airborne precautions, being worked up for TB 1. Respiratory failure secondary to pneumonia versus interstitial pneumonitis from rheumatoid arthritis versus mild aspiration. -on Bactrim 2. Severe rheumatoid arthritis. 3. Quadriplegia. 4. Adrenal insufficiency. 5. Gastroparesis. -Reglan, denies nausea 6. Hypothyroidism. 7. Chronic pain syndrome. 8. Hypertension. 9. Diarrhea -VRE in stool -FOB neg 10. Leukocytosis secondary to steroids Swallow eval: Impression: Oropharyngeal dysphagia associated with reduced oropharyngeal strength/coordination, delayed timing of swallowing and reduced coordination of breath with swallow safety impacting swallow safety. Pt is not safe to initiate p.o intake and is at high risk of aspiration. Recommendation: 1. Initiate dysphagia therapy 3-5x per week for 1-2 weeks 2. Keep NPO+PEG tube feeds for primary means of nutrition/hydration/medication delivery 3. Anticipate need for in-line PMV evaluation one respiratory status improves and is stabilized 4. ongoing assessment and BOT and oropharyngeal strengthening exercises, aswell as pt/family education and counseling 5. Anticipate need for MBSS prior to initiation of p.o intake PLAN: ID recommendations Continue present care Nothing by mouth per swallow eval results Continue with tube feeds check residuals q 4 hours Continue Reglan. Aspiration precautions. So far there is no evidence of aspiration. 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 Consultation Date/Type/Reason Admit Date/Time Oct 09, 2018 at 12:16 Initial Consult Date 10/12/18 Requesting Provider: NOLA VIDAL MD Date/Time of Note DATE: 10/22/18 TIME: 10:27 Exam/Review of Systems Exam Vitals Vital Signs Date Temp Pulse Resp B/P (MAP) Pulse Ox O2 O2 Flow FiO2 Time Delivery Rate 10/22/18 112 08:00 10/22/18 29 108/79 100 Mechanical 06:00 (89) Ventilator 10/22/18 60 05:19 10/22/18 99.6 04:00 Intake and Output 10/21/18 10/21/18 10/22/18 1515:00 23:00 07:00 IntakeIntake Total 370 ml 420 ml 330 ml OutputOutput Total 710 ml 535 ml 125 ml BalanceBalance -340 ml -115 ml 205 ml Constitutional: alert, oriented, other (On mechanical ventilation via trach.) Psych: no complaints Head: normocephalic, atraumatic Eyes: nl conjunctiva ENMT: nl external ears & nose (Trach) Neck: supple Respiratory: clear to auscultation Cardiovascular: regular rate and rhythm, nl pulses Gastrointestinal: soft (Peg tube), non-tender Musculoskeletal: nl extremities to inspection Extremities: normal pulses Neurological: other (Generalized Weakness) Results Result Diagram: 10/22/18 0538 10/22/18 0538 Results 24hrs Laboratory Tests Test 10/21/18 14:17 10/21/18 19:48 10/22/18 02:11 10/22/18 05:38 Bedside Glucose 148 177 124 White Blood Count 21.9 H Red Blood Count 3.46 L Hemoglobin 10.0 L Hematocrit 32.4 L Mean Corpuscular Volume 93.6 Mean Corpuscular 28.9 L Hemoglobin Mean Corpuscular 30.9 L Hemoglobin Concent Red Cell Distribution 18.8 H Width Platelet Count 464 H Mean Platelet Volume 11.1 H Immature Granulocytes % 2.900 H Neutrophils % 76.1 Lymphocytes % 5.8 L Monocytes % 14.9 H Eosinophils % 0.0 Basophils % 0.3 Nucleated Red Blood 0.0 Cells % Immature Granulocytes # 0.640 H Neutrophils # 16.7 H Lymphocytes # 1.3 Monocytes # 3.3 H Eosinophils # 0.0 Basophils # 0.1 Nucleated Red Blood 0.0 Cells # Sodium Level 137 Potassium Level 4.2 Chloride Level 95 L Carbon Dioxide Level 36 H Anion Gap 6 Blood Urea Nitrogen 31 H Creatinine 0.43 L Est Glomerular Filtrat > 60 Rate mL/min Glucose Level 103 # Calcium Level 6.5 L Ionized Calcium 0.9 L (Measured) Magnesium Level 1.9 Total Bilirubin 0.2 Direct Bilirubin 0.00 Indirect Bilirubin 0.2 Aspartate Amino 29 Transf (AST/SGOT) Alanine 28 Aminotransferase (ALT/SG PT) Alkaline Phosphatase 123 H Total Protein 5.4 L Albumin 2.9 L Globulin 2.50 Albumin/Globulin Ratio 1.16 Medications Medication Current Medications Acetaminophen (Tylenol Liquid) 650 mg Q4H PRN GTB MILD PAIN(1-3)OR ELEVATED TEMP Last administered on 10/16/18 07:52; Admin Dose 650 MG; Start 10/09/18 at 14:00 Al Hydrox/Mg Hydrox/Simethicone (Mag-Al Plus) 15 ml Q6H PRN PO GASTROINTESTINAL UPSET Last administered on 10/17/18 13:18; Admin Dose 15 ML; Start 10/09/18 at 14:00 Eye Lubricant (Artificial Tears Oph) 1 drop Q6H PRN BOTH EYES DRY EYES; Start 10/09/18 at 14:00 Bisacodyl (Dulcolax Supp) 10 mg DAILY PRN [place] CONSTIPATION; Start 10/09/18 at 14:00 Clonidine (Catapres) 0.1 mg DAILY PRN GTB ELEVATED BLOOD PRESSURE; Start 10/09/18 at 14:00 Diltiazem HCl (Cardizem Iv) 5 mg Q4 PRN IV ELEVATED HEART RATE Last administered on 10/18/18 01:09; Admin Dose 5 MG; Start 10/09/18 at 14:00 Diphenhydramine HCl (Benadryl Liquid Cup) 25 mg Q6 PRN GTB ITCHING Last administered on 10/17/18 23:27; Admin Dose 25 MG; Start 10/09/18 at 14:00 Duloxetine HCl (Cymbalta) 30 mg DAILY PO Last administered on 10/22/18 09:56; Admin Dose 30 MG; Start 10/10/18 at 09:00 Epoetin Arpan (Epogen (Esrd)) 10,000 units TuSa@1300 SC Last administered on 10/18/18 13:32; Admin Dose 10,000 UNITS; Start 10/11/18 at 13:00 Gabapentin (Neurontin Liquid) 400 mg Q8 GTB Last administered on 10/22/18 05:41; Admin Dose 400 MG; Start 10/09/18 at 15:30 Hydralazine HCl (Apresoline) 10 mg Q4H PRN IV ELEVATED BLOOD PRESSURE; Start 10/09/18 at 14:00 Hydroxychloroquine Sulfate (Plaquenil) 200 mg BID PO Last administered on 10/22/18 09:55; Admin Dose 200 MG; Start 10/09/18 at 21:00 Diagnostic Test (Pha) (Accu-Chek) 1 ea 02 XX Last administered on 10/22/18 02:13; Admin Dose 1 EA; Start 10/10/18 at 02:00 Insulin Aspart (Novolog Insulin Pen) NOVOLOG *CUSTOM* ALGORITHM Q6H SC Last administered on 10/21/18 19:55; Admin Dose 1 UNIT; Start 10/09/18 at 14:00 Lactobacillus Acidophilus (Florajen3 Capsule) 1 each BID GTB Last administered on 10/22/18 09:55; Admin Dose 1 EACH; Start 10/09/18 at 21:00 Lansoprazole (Prevacid) 30 mg BID@,18 GTB Last administered on 10/22/18 0 5:41; Admin Dose 30 MG; Start 10/09/18 at 18:00 Levetiracetam (Keppra Liquid) 500 mg BID GTB Last administered on 10/22/18 09:54; Admin Dose 500 MG; Start 10/09/18 at 21:00 Magnesium Oxide (Mag-Ox 400) 400 mg BID GTB Last administered on 10/22/18 09:55; Admin Dose 400 MG; Start 10/09/18 at 21:00 Metoclopramide HCl (Reglan) 10 mg TID IV Last administered on 10/22/18 09:55; Admin Dose 10 MG; Start 10/09/18 at 21:00 Miconazole Nitrate (Miconazole 2% Cr) 1 applic BID TOP Last administered on 10/22 09:54; Admin Dose 1 APPLIC; Start 10/09/18 at 21:00 Miconazole Nitrate (Miconazole 2% Cr) 1 applic Q12 PRN TOP rash; Start 10/09/18 at 14:00 Ondansetron HCl (Zofran Inj) 4 mg Q4H PRN IV NAUSEA AND/OR VOMITING Last administered on 10/19/18 16:37; Admin Dose 4 MG; Start 10/09/18 at 14:00 Polyethylene Glycol (Miralax) 17 gm DAILY PRN GTB CONSTIPATION; Start 10/09/18 at 14:00 Senna (Senokot) 2 tab Q8 PRN PO CONSTIPATION; Start 10/09/18 at 14:00 Trimethoprim/ Sulfamethoxazole (Bactrim Susp) 40 ml DAILY GTB Last administered on 10/22/18 09:54; Admin Dose 40 ML; Start 10/10/18 at 09:00 Zolpidem Tartrate (Ambien) 5 mg HS PRN PO INSOMNIA Last administered on 10/21/18 02:34; Admin Dose 5 MG; Start 10/09/18 at 14:00 Miscellaneous Information 1 ea NOTE XX ; Start 10/09/18 at 15:00 Glucose (Glutose) 15 gm Q15M PRN PO DECREASED GLUCOSE; Start 10/09/18 at 15:00 Glucose (Glutose) 22.5 gm Q15M PRN PO DECREASED GLUCOSE; Start 10/09/18 at 15:00 Dextrose (D50w Syringe) 25 ml Q15M PRN IV DECREASED GLUCOSE; Start 10/09/18 at 15:00 Dextrose (D50w Syringe) 50 ml Q15M PRN IV DECREASED GLUCOSE; Start 10/09/18 at 15:00 Glucagon (Glucagen) 1 mg Q15M PRN IM DECREASED GLUCOSE; Start 10/09/18 at 15:00 Glucose (Glutose) 15 gm Q15M PRN BUCCAL DECREASED GLUCOSE; Start 10/09/18 at 15:00 Sodium Chloride 500 ml @ 500 mls/hr Q1H PRN IV BLOOD PRESSURE SUPPORT Last administered on 10/10/18 07:59; Admin Dose 500 MLS/HR; Start 10/09/18 at 19:30 Albuterol (Ventolin Hfa) 4 puff Q6H RESP THERAPY INH Last administered on 10/22/18 01:23; Admin Dose 4 PUFF; Start 10/10/18 at 02:00 Ipratropium [place] (Atrovent Hfa) 4 puff Q6H RESP THERAPY INH Last administered on 10/22/18 01:24; Admin Dose 4 PUFF; Start 10/10/18 at 02:00 Methylprednisolone Sodium Succinate (Solu-Medrol) 40 mg Q8 IV Last administered on 10/22/18 05:41; Admin Dose 40 MG; Start 10/14/18 at 14:00 Lorazepam (Ativan) 1 mg Q4H PRN GTB AGITATION/ANXIETY Last administered on 10/19/18 17:35; Admin Dose 1 MG; Start 10/14/18 at 13:00 Lisinopril (Zestril) 2.5 mg DAILY PO Last administered on 10/22/18 09:55; Admin Dose 2.5 MG; Start 10/15/18 at 09:00 Linagliptin (Tradjenta) 5 mg DAILY PO Last administered on 10/22/18 09:56; Admin Dose 5 MG; Start 10/16/18 at 10:30 Carvedilol (Coreg) 6.25 mg BID PO Last administered on 10/22/18 09:56; Admin Dose 6.25 MG; Start 10/17/18 at 21:00 Calcium Carbonate (Ca Carbonate) 1,250 mg TID GTB Last administered on 10/22/18 09:54; Admin Dose 1,250 MG; Start 10/17/18 at 14:00 Fentanyl (Duragesic 50 Mcg/Hr Patch) 1 patch Q72H TRANSDERM Last administered on 10/20/18 23:24; Admin Dose 1 PATCH; Start 10/17/18 at 20:30 Lorazepam (Ativan) 2 mg Q6H GTB Last administered on 10/22/18 09:55; Admin Dose 2 MG; Start 10/20/18 at 15:00 Quetiapine Fumarate (Seroquel) 100 mg BID GTB Last administered on 10/22/18 09:55; Admin Dose 100 MG; Start 10/21/18 at 21:00 Hydromorphone HCl (Dilaudid) 6 mg Q4H PRN PO MODERATE PAIN LEVEL 7-10 Last administered on 10/22/18 02:08; Admin Dose 6 MG; Start 10/21/18 at 22:00 Calcitriol (Rocaltrol) 0.5 mcg TID PO Last administered on 10/22/18 09:56; Admin Dose 0.5 MCG; Start 10/22/18 at 09:00 Calcium Gluconate 2 gm/Dextrose 120 ml @ 60 mls/hr ONCE ONCE IVPB Last ad ministered on 10/22/18 09:54; Admin Dose 60 MLS/HR; Start 10/22/18 at 09:00; Stop 10/22/18 at 10:59 CLAU MORRISSEY NP Oct 22, 2018 10:33
[2018-10-22] MEDS: EPOETIN 10000 UNITS/1 ML INJ (ESRD) SC SCH (13:05)
[2018-10-22] MEDS ORDERED: DIGOXIN 500 MCG INJ IV ONE (14:30)
--- NOTE | 2018-10-22 14:30 | CONS ---
Assessment/Plan Assessment/Plan Hospital Course (Demo Recall) IMPRESSION: 1. Tachycardia at this time in the setting of fevers and respiratory distress, most consistent with sinus tachycardia likely driving this process. 2. Hypertension with borderline hypotension at this time. -still borderline Hotn 3. Abnormal electrocardiogram at baseline. 4. Chronic respiratory failure, status post tracheostomy.-weaning vent support 5. Dysphagia, status post G-tube. 6. Quadriplegia. 7. Renal insufficiency, on steroids. 8. Chronic obstructive pulmonary disease. 9. Rheumatoid arthritis. 10. Chronic kidney disease. 11. Diabetes mellitus. 12.Adrenal insufficiency 14. cardiomyopathy-EF 35-40% by echo this admit Recc -ICU -Vent support as necessary -Follow volume status closely -Continue abx's and f/u cx data -continue steroids -Continue low dose BB and ACEI and follow HR closely -Give additional dose of IVP digoxin Consultation Date/Type/Reason Admit Date/Time Oct 09, 2018 at 12:16 Initial Consult Date 10/09/18 Type of Consult Cardiology Reason for Consultation tachycardia Requesting Provider: NOLA VIDAL MD Date/Time of Note DATE: 10/22/18 TIME: 14:24 Exam/Review of Systems Vital Signs Vitals Vital Signs Date Temp Pulse Resp B/P (MAP) Pulse Ox O2 O2 Flow FiO2 Time Delivery Rate 10/22/18 111 22 106/73 100 Mechanical 13:00 (84) Ventilator 10/22/18 98.4 12:00 10/22/18 80 08:00 Intake and Output 10/21/18 10/21/18 10/22/18 1414:59 22:59 06:59 IntakeIntake Total 370 ml 370 ml 420 ml OutputOutput Total 600 ml 615 ml 155 ml BalanceBalance -230 ml -245 ml 265 ml Exam Exam Review of Systems: CONSTITUTIONAL: No fevers, chills. PULMONARY: No sob CARDIOVASCULAR: No chest pain/palpitations GASTROINTESTINAL: No nausea/vomiting. GENITOURINARY: No hematuria/dysuria. MUSCULOSKELETAL: No myagias/arthalgias. PSYCHIATRIC: The patient denies depression. NEUROLOGIC: No weakness Constitutional: alert Psych: no complaints Head: normocephalic ENMT: mucosa pink and moist Neck: supple, jvd Respiratory: diminished breath sounds Cardiovascular: regular rate and rhythm Gastrointestinal: soft, non-tender Musculoskeletal: muscle tone Extremities: edema (none) Neurological: other (No focal deficits) Labs Result Diagram: 10/22/18 0538 10/22/18 0538 Results 24hrs Laboratory Tests Test 10/21/18 19:48 10/22/18 02:11 10/22/18 05:38 10/22/18 10:14 Bedside Glucose 177 124 110 White Blood Count 21.9 H Red Blood Count 3.46 L Hemoglobin 10.0 L Hematocrit 32.4 L Mean Corpuscular Volume 93.6 Mean Corpuscular 28.9 L Hemoglobin Mean Corpuscular 30.9 L Hemoglobin Concent Red Cell Distribution 18.8 H Width Platelet Count 464 H Mean Platelet Volume 11.1 H Immature Granulocytes % 2.900 H Neutrophils % 76.1 Lymphocytes % 5.8 L Monocytes % 14.9 H Eosinophils % 0.0 Basophils % 0.3 Nucleated Red Blood 0.0 Cells % Immature Granulocytes # 0.640 H Neutrophils # 16.7 H Lymphocytes # 1.3 Monocytes # 3.3 H Eosinophils # 0.0 Basophils # 0.1 Nucleated Red Blood 0.0 Cells # Sodium Level 137 Potassium Level 4.2 Chloride Level 95 L Carbon Dioxide Level 36 H Anion Gap 6 Blood Urea Nitrogen 31 H Creatinine 0.43 L Est Glomerular Filtrat > 60 Rate mL/min Glucose Level 103 # Calcium Level 6.5 L Ionized Calcium 0.9 L (Measured) Magnesium Level 1.9 Total Bilirubin 0.2 Direct Bilirubin 0.00 Indirect Bilirubin 0.2 Aspartate Amino 29 Transf (AST/SGOT) Alanine 28 Aminotransferase (ALT/SG PT) Alkaline Phosphatase 123 H Total Protein 5.4 L Albumin 2.9 L Globulin 2.50 Albumin/Globulin Ratio 1.16 Test 10/22/18 13:03 Bedside Glucose 100 Medications Medications Current Medications Acetaminophen (Tylenol Liquid) 650 mg Q4H PRN GTB MILD PAIN(1-3)OR ELEVATED TEMP Last administered on 10/16/18at 07:52; Admin Dose 650 MG; Start 10/09/18 at 14:00 Al Hydrox/Mg Hydrox/Simethicone (Mag-Al Plus) 15 ml Q6H PRN PO GASTROINTESTINAL UPSET Last administered on 10/17/18at 13:18; Admin Dose 15 ML; Start 10/09/18 at 14:00 Eye Lubricant (Artificial Tears Oph) 1 drop Q6H PRN BOTH EYES DRY EYES; Start 10/09/18 at 14:00 Bisacodyl (Dulcolax Supp) 10 mg DAILY PRN [place] CONSTIPATION; Start 10/09/18 at 14:00 Clonidine (Catapres) 0.1 mg DAILY PRN GTB ELEVATED BLOOD PRESSURE; Start 10/09/18 at 14:00 Diltiazem HCl (Cardizem Iv) 5 mg Q4 PRN IV ELEVATED HEART RATE Last administered on 10/18/18 01:09; Admin Dose 5 MG; Start 10/09/18 at 14:00 Diphenhydramine HCl (Benadryl Liquid Cup) 25 mg Q6 PRN GTB ITCHING Last administered on 10/17/18 23:27; Admin Dose 25 MG; Start 10/09/18 at 14:00 Duloxetine HCl (Cymbalta) 30 mg DAILY PO Last administered on 10/22/18 09:56; Admin Dose 30 MG; Start 10/10/18 at 09:00 Epoetin Arpan (Epogen (Esrd)) 10,000 units TuSa@1300 SC Last administered on 10/22/18 13:05; Admin Dose 10,000 UNITS; Start 10/11/18 at 13:00 Gabapentin (Neurontin Liquid) 400 mg Q8 GTB Last administered on 10/22/18 13:04; Admin Dose 400 MG; Start 10/09/18 at 15:30 Hydralazine HCl (Apresoline) 10 mg Q4H PRN IV ELEVATED BLOOD PRESSURE; Start 10/09/18 at 14:00 Hydroxychloroquine Sulfate (Plaquenil) 200 mg BID PO Last administered on 10/22/18 09:55; Admin Dose 200 MG; Start 10/09/18 at 21:00 Diagnostic Test (Pha) (Accu-Chek) 1 ea 02 XX Last administered on 10/22/18 02:13; Admin Dose 1 EA; Start 10/10/18 at 02:00 Insulin Aspart (Novolog Insulin Pen) NOVOLOG *CUSTOM* ALGORITHM Q6H SC Last administered on 10/21/18 19:55; Admin Dose 1 UNIT; Start 10/09/18 at 14:00 Lactobacillus Acidophilus (Florajen3 Capsule) 1 each BID GTB Last administered on 10/22/18 09:55; Admin Dose 1 EACH; Start 10/09/18 at 21:00 Lansoprazole (Prevacid) 30 mg BID@,18 GTB Last administered on 10/22/18 05:41; Admin Dose 30 MG; Start 10/09/18 at 18:00 Levetiracetam (Keppra Liquid) 500 mg BID GTB Last administered on 10/22/18 09:54; Admin Dose 500 MG; Start 10/09/18 at 21:00 Magnesium Oxide (Mag-Ox 400) 400 mg BID GTB Last administered on 10/22/18 09:55; Admin Dose 400 MG; Start 10/09/18 at 21:00 Metoclopramide HCl (Reglan) 10 mg TID IV Last administered on 10/22/18 13:05; Admin Dose 10 MG; Start 10/09/18 at 21:00 Miconazole Nitrate (Miconazole 2% Cr) 1 applic BID TOP Last administered on 10/22/18 09:54; Admin Dose 1 APPLIC; Start 10/09/18 at 21:00 Miconazole Nitrate (Miconazole 2% Cr) 1 applic Q12 PRN TOP rash; Start 10/09/18 at 14:00 Ondansetron HCl (Zofran Inj) 4 mg Q4H PRN IV NAUSEA AND/OR VOMITING Last administered on 10/19/18 16:37; Admin Dose 4 MG; Start 10/09/18 at 14:00 Polyethylene Glycol (Miralax) 17 gm DAILY PRN GTB CONSTIPATION; Start 10/09/18 at 14:00 Senna (Senokot) 2 tab Q8 PRN PO CONSTIPATION; Start 10/09/18 at 14:00 Trimethoprim/ Sulfamethoxazole (Bactrim Susp) 40 ml DAILY GTB Last administered on 10/22/18 09:54; Admin Dose 40 ML; Start 10/10/18 at 09:00 Zolpidem Tartrate (Ambien) 5 mg HS PRN PO INSOMNIA Last administered on 10/21/18 02:34; Admin Dose 5 MG; Start 10/09/18 at 14:00 Miscellaneous Information 1 ea NOTE XX ; Start 10/09/18 at 15:00 Glucose (Glutose) 15 gm Q15M PRN PO DECREASED GLUCOSE; Start 10/09/18 at 15:00 Glucose (Glutose) 22.5 gm Q15M PRN PO DECREASED GLUCOSE; Start 10/09/18 at 15:00 Dextrose (D50w Syringe) 25 ml Q15M PRN IV DECREASED GLUCOSE; Start 10/09/18 at 15:00 Dextrose (D50w Syringe) 50 ml Q15M PRN IV DECREASED GLUCOSE; Start 10/09/18 at 15:00 Glucagon (Glucagen) 1 mg Q15M PRN IM DECREASED GLUCOSE; Start 10/09/18 at 15:00 Glucose (Glutose) 15 gm Q15M PRN BUCCAL DECREASED GLUCOSE; Start 10/09/18 at 15:00 Sodium Chloride 500 ml @ 500 mls/hr Q1H PRN IV BLOOD PRESSURE SUPPORT Last administered on 10/10/18 07:59; Admin Dose 500 MLS/HR; Start 10/09/18 at 19:30 Albuterol (Ventolin Hfa) 4 puff Q6H RESP THERAPY INH Last administered on 10/22/18 10:30; Admin Dose 4 PUFF; Start 10/10/18 at 02:00 Ipratropium [place] (Atrovent Hfa) 4 puff Q6H RESP THERAPY INH Last administered on 10/22/18 10:31; Admin Dose 4 PUFF; Start 10/10/18 at 02:00 Methylprednisolone Sodium Succinate (Solu-Medrol) 40 mg Q8 IV Last administered on 10/22/18 13:04; Admin Dose 40 MG; Start 10/14/18 at 14:00 Lorazepam (Ativan) 1 mg Q4H PRN GTB AGITATION/ANXIETY Last administered on 10/19/18 17:35; Admin Dose 1 MG; Start 10/14/18 at 13:00 Lisinopril (Zestril) 2.5 mg DAILY PO Last administered on 10/22/18 09:55; Admin Dose 2.5 MG; Start 10/15/18 at 09:00 Linagliptin (Tradjenta) 5 mg DAILY PO Last administered on 10/22/18 09:56; Admin Dose 5 MG; Start 10/16/18 at 10:30 Carvedilol (Coreg) 6.25 mg BID PO Last administered on 10/22/18 09:56; Admin Do se 6.25 MG; Start 10/17/18 at 21:00 Calcium Carbonate (Ca Carbonate) 1,250 mg TID GTB Last administered on 10/22/18 13:05; Admin Dose 1,250 MG; Start 10/17/18 at 14:00 Fentanyl (Duragesic 50 Mcg/Hr Patch) 1 patch Q72H TRANSDERM Last administered on 10/20/18 23:24; Admin Dose 1 PATCH; Start 10/17/18 at 20:30 Lorazepam (Ativan) 2 mg Q6H GTB Last administered on 10/22/18 09:55; Admin Dose 2 MG; Start 10/20/18 at 15:00 Quetiapine Fumarate (Seroquel) 100 mg BID GTB Last administered on 10/22/18 09:55; Admin Dose 100 MG; Start 10/21/18 at 21:00 Hydromorphone HCl (Dilaudid) 6 mg Q4H PRN PO MODERATE PAIN LEVEL 7-10 Last administered on 10/22/18 13:06; Admin Dose 6 MG; Start 10/21/18 at 22:00 Calcitriol (Rocaltrol) 0.5 mcg TID PO Last administered on 10/22/18 13:04; Admin Dose 0.5 MCG; Start 10/22/18 at 09:00 BRISA HAQUE Oct 22, 2018 14:30
--- NOTE | 2018-10-22 18:49 | CONS ---
[facility] HCIS Consult Follow-up Patient Name: Armand Quiroga Unit Number: [id number] Date of : 1965 Patient Status: Admitted Inpatient Attending Doctor: Nola Vidal MD Edit: NEMO NEVAREZ M.D. on 10/24/18 @ 01:36 Roque: I discussed the management with FI[employer] WORKER Luis Alberto and agree with below. Assessment/Plan Assessment/Plan Hospital Course (Demo Recall) # sepsis, respiratory - recurrent sepsis on 10/08/2018 due to aspiration pneumonia, HCAP, improved - possible aspiration pneumonia, recurrent pneumonia due to citrobacter, improved - acute on chronic hypoxic and hypercarbic respiratory failure - persistent leukocytosis likely due to steroid margination - h/o tracheostomy on 08/26/2018 - h/o "Increased mild left apical pneumothorax" per CXR on 09/19/2018; no pneumothorax mentioned on subsequent CXR - h/o pneumomediastinum - h/o VAT on 08/11/2018 - h/o asthma/COPD exacerbation - h/o acute tracheobronchitis - h/o MAC infection but CT chest did not demonstrate features suggestive of this per chart review - h/o HCAP due to citrobacter, based on resp culture on 09/13/2018 - h/o aspergillus growing out of resp culture per (pulm note by Dr. Lopez) on 07/25/2018 - h/o elevated 1,3 [id number] level = 232 on 08/06/2018 - h/o MSSA septicemia # GI - diarrhea, C diff on 10/09/2018 was negative - h/o HSV esophagitis, took acyclovir x21 days from 08/26/2018 - h/o EGD, esophageal biopsy showed esophageal squamous mucosa showing acute inflammation, granulation tissue, and ulceration consistent with ulcerative esophagitis, rare multinucleated cells with morphology suggestive of vial cytopathic changes, No cardiac mucosa, intestinal metaplasia, dysplasia, or malignancy defined - GERD - PUD # renal/ - Hypokalemia, recurrent - CKD 2 - BPH # cardiac - tachycardia, persistent - ACD - HTN - HLD # endo - T2DM - Hgb A1c 7.2% - secondary adrenal insufficiency; steroid dependent - Hypoparathyroidism - Hypercalcemia - Pamidronate was ordered # neuro - toxic metabolic encephalopathy - Cervical myopathy - Severe cervical spinal cord stenosis with cord compression from C3-C5, s/p laminectomy in ~03/2018 - Chronic pain syndrome - Functional quadriplegia - Seizure d/o # other chronic conditions - RA with chronic steroid dependence - Immunocompromised status - Fibromyalgia - DDD - H/o multiple rib fracture - Pt completed: meropenem (09/25/2018-10/02/2018), vancomycin (09/25/18-09/28/18), pip/tazo (10/09/2018-10/15/2018) Recommendations: - pending: pneumocystis DFA from 10/18/2018, AFB smear x1 (2 are neg thusfar) and culture x3 in particular to r/o mycobacterium avium intracellulaire, quantiferon TB gold, coccidioides serology - continue Bactrim for pneumocystis PPX - continue to monitor off other systemic antibiotic management d/w ARIANNA Paul, and with Dr. Nevarez. Thank you Total critical care time spent: 45 min. Consultation Date/Type/Reason Admit Date/Time Oct 09, 2018 at 12:16 Initial Consult Date 10/12/18 Type of Consult ID Requesting Provider: ONLA VIDAL MD Date/Time of Note DATE: 10/22/18 TIME: 18:46 24 HR Interval Summary Free Text/Dictation Per d/w ARIANNA Paul, the patient has been requesting pain medication frequently. Pt receives 6mg Dilaudid Q4h and still c/o pain. She states she has also alternated lorazepam with this. Otherwise the patient has remained afebrile, no other acute issues reported. AFB smear x2 neg, awaiting 3rd which was sent last night. Patient mouthed to me "pain" and he shook his head "yes" re: shortness of breath, cough, and weakness. Otherwise he shook his head "no." Exam/Review of Systems Exam Vitals Vital Signs Date Temp Pulse Resp B/P (MAP) Pulse Ox O2 O2 Flow FiO2 Time Delivery Rate 10/22/18 119 27 114/99 92 Mechanical 18:00 (104) Ventilator 10/22/18 60 17:20 10/22/18 98.9 16:00 Intake and Output 10/21/18 10/21/18 10/22/18 1515:00 23:00 07:00 IntakeIntake Total 370 ml 420 ml 370 ml OutputOutput Total 710 ml 535 ml 175 ml BalanceBalance -340 ml -115 ml 195 ml Allergies Coded Allergies No Known Allergy (Unverified10/12/18) Constitutional: non-verbal, frail Psych: other (c/o pain) Head: normocephalic, atraumatic Eyes: nl conjunctiva, nl lids, nl sclera ENMT: nl external ears & nose, nl nasal mucosa & septum, mucosa pink and moist (no thrush) Neck: supple, non-tender, other (trach site is midline, site c/d/i, on vent, fio2 60%) Respiratory: normal air movement, diminished breath sounds Cardiovascular: regular rate and rhythm, nl pulses Gastrointestinal: soft, non-tender, other (GT site is c/d/i) Musculoskeletal: nl extremities to inspection Extremities: normal pulses Neurological: lethargic, other (eye tracks, follows simple commands, able to mouth words ) Skin: nl turgor, other (stage II coccygeal ulcer); No rash or lesions Results Result Diagram: 10/22/1838 10/22/1838 Results 24hrs Laboratory Tests Test 10/21/18 19:48 10/22/18 02:11 10/22/18 05:38 10/22/18 10:14 Bedside Glucose 177 124 110 White Blood Count 21.9 H Red Blood Count 3.46 L Hemoglobin 10.0 L Hematocrit 32.4 L Mean Corpuscular Volume 93.6 Mean Corpuscular 28.9 L Hemoglobin Mean Corpuscular 30.9 L Hemoglobin Concent Red Cell Distribution 18.8 H Width Platelet Count 464 H Mean Platelet Volume 11.1 H Immature Granulocytes % 2.900 H Neutrophils % 76.1 Lymphocytes % 5.8 L Monocytes % 14.9 H Eosinophils % 0.0 Basophils % 0.3 Nucleated Red Blood 0.0 Cells % Immature Granulocytes # 0.640 H Neutrophils # 16.7 H Lymphocytes # 1.3 Monocytes # 3.3 H Eosinophils # 0.0 Basophils # 0.1 Nucleated Red Blood 0.0 Cells # Sodium Level 137 Potassium Level 4.2 Chloride Level 95 L Carbon Dioxide Level 36 H Anion Gap 6 Blood Urea Nitrogen 31 H Creatinine 0.43 L Est Glomerular Filtrat > 60 Rate mL/min Glucose Level 103 # Calcium Level 6.5 L Ionized Calcium 0.9 L (Measured) Magnesium Level 1.9 Total Bilirubin 0.2 Direct Bilirubin 0.00 Indirect Bilirubin 0.2 Aspartate Amino 29 Transf (AST/SGOT) Alanine 28 Aminotransferase (ALT/SG PT) Alkaline Phosphatase 123 H Total Protein 5.4 L Albumin 2.9 L Globulin 2.50 Albumin/Globulin Ratio 1.16 Test 10/22/18 13:03 Bedside Glucose 100 Medications Medication Current Medications Acetaminophen (Tylenol Liquid) 650 mg Q4H PRN GTB MILD PAIN(1-3)OR ELEVATED TEMP Last administered on 10/16/18at 07:52; Admin Dose 650 MG; Start 10/09/18 at 14:00 Al Hydrox/Mg Hydrox/Simethicone (Mag-Al Plus) 15 ml Q6H PRN PO GASTROINTESTINAL UPSET Last administered on 10/17/18at 13:18; Admin Dose 15 ML; Start 10/09/18 at 14:00 Eye Lubricant (Artificial Tears Oph) 1 drop Q6H PRN BOTH EYES DRY EYES; Start 10/09/18 at 14:00 Bisacodyl (Dulcolax Supp) 10 mg DAILY PRN [place] CONSTIPATION; Start 10/09/18 at 14:00 Clonidine (Catapres) 0.1 mg DAILY PRN GTB ELEVATED BLOOD PRESSURE; Start 10/09/18 at 14:00 Diltiazem HCl (Cardizem Iv) 5 mg Q4 PRN IV ELEVATED HEART RATE Last administered on 10/18/18at 01:09; Admin Dose 5 MG; Start 10/09/18 at 14:00 Diphenhydramine HCl (Benadryl Liquid Cup) 25 mg Q6 PRN GTB ITCHING Last administered on 10/17/18at 23:27; Admin Dose 25 MG; Start 10/09/18 at 14:00 Duloxetine HCl (Cymbalta) 30 mg DAILY PO Last administered on 10/22/18 09:56; Admin Dose 30 MG; Start 10/10/18 at 09:00 Epoetin Arpan (Epogen (Esrd)) 10,000 units TuSa@1300 SC Last administered on 10/22/18 13:05; Admin Dose 10,000 UNITS; Start 10/11/18 at 13:00 Gabapentin (Neurontin Liquid) 400 mg Q8 GTB Last administered on 10/22/18 13:04; Admin Dose 400 MG; Start 10/09/18 at 15:30 Hydralazine HCl (Apresoline) 10 mg Q4H PRN IV ELEVATED BLOOD PRESSURE; Start 10/09/18 at 14:00 Hydroxychloroquine Sulfate (Plaquenil) 200 mg BID PO Last administered on 10/22/18 09:55; Admin Dose 200 MG; Start 10/09/18 at 21:00 Diagnostic Test (Pha) (Accu-Chek) 1 ea 02 XX Last administered on 10/22/18 02:13; Admin Dose 1 EA; Start 10/10/18 at 02:00 Insulin Aspart (Novolog Insulin Pen) NOVOLOG *CUSTOM* ALGORITHM Q6H SC Last administered on 10/21/18 19:55; Admin Dose 1 UNIT; Start 10/09/18 at 14:00 Lactobacillus Acidophilus (Florajen3 Capsule) 1 each BID GTB Last administered on 10/22/18 09:55; Admin Dose 1 EACH; Start 10/09/18 at 21:00 Lansoprazole (Prevacid) 30 mg BID@06,18 GTB Last administered on 10/22/18 18:07; Admin Dose 30 MG; Start 10/09/18 at 18:00 Levetiracetam (Keppra Liquid) 500 mg BID GTB Last administered on 10/22/18 09:54; Admin Dose 500 MG; Start 10/09/18 at 21:00 Magnesium Oxide (Mag-Ox 400) 400 mg BID GTB Last administered on 10/22/18 09:55; Admin Dose 400 MG; Start 10/09/18 at 21:00 Metoclopramide HCl (Reglan) 10 mg TID IV Last administered on 10/22/18 13:05; Admin Dose 10 MG; Start 10/09/18 at 21:00 Miconazole Nitrate (Miconazole 2% Cr) 1 applic BID TOP Last administered on 10/22/18at 09:54; Admin Dose 1 APPLIC; Start 10/09/18 at 21:00 Miconazole Nitrate (Miconazole 2% Cr) 1 applic Q12 PRN TOP rash; Start 10/09/18 at 14:00 Ondansetron HCl (Zofran Inj) 4 mg Q4H PRN IV NAUSEA AND/OR VOMITING Last administered on 10/19/18at 16:37; Admin Dose 4 MG; Start 10/09/18 at 14:00 Polyethylene Glycol (Miralax) 17 gm DAILY PRN GTB CONSTIPATION; Start 10/09/18 at 14:00 Senna (Senokot) 2 tab Q8 PRN PO CONSTIPATION; Start 10/09/18 at 14:00 Trimethoprim/ Sulfamethoxazole (Bactrim Susp) 40 ml DAILY GTB Last administered on 10/22/18at 09:54; Admin Dose 40 ML; Start 10/10/18 at 09:00 Zolpidem Tartrate (Ambien) 5 mg HS PRN PO INSOMNIA Last administered on 10/21/18at 02:34; Admin Dose 5 MG; Start 10/09/18 at 14:00 Miscellaneous Information 1 ea NOTE XX ; Start 10/09/18 at 15:00 Glucose (Glutose) 15 gm Q15M PRN PO DECREASED GLUCOSE; Start 10/09/18 at 15:00 Glucose (Glutose) 22.5 gm Q15M PRN PO DECREASED GLUCOSE; Start 10/09/18 at 15:00 Dextrose (D50w Syringe) 25 ml Q15M PRN IV DECREASED GLUCOSE; Start 10/09/18 at 15:00 Dextrose (D50w Syringe) 50 ml Q15M PRN IV DECREASED GLUCOSE; Start 10/09/18 at 15:00 Glucagon (Glucagen) 1 mg Q15M PRN IM DECREASED GLUCOSE; Start 10/09/18 at 15:00 Glucose (Glutose) 15 gm Q15M PRN BUCCAL DECREASED GLUCOSE; Start 10/09/18 at 15:00 Sodium Chloride 500 ml @ 500 mls/hr Q1H PRN IV BLOOD PRESSURE SUPPORT Last administered on 10/10/18at 07:59; Admin Dose 500 MLS/HR; Start 10/09/18 at 19:30 Albuterol (Ventolin Hfa) 4 puff Q6H RESP THERAPY INH Last administered on 10/22/18 17:19; Admin Dose 4 PUFF; Start 10/10/18 at 02:00 Ipratropium [place] (Atrovent Hfa) 4 puff Q6H RESP THERAPY INH Last administered on 10/22/18 17:19; Admin Dose 4 PUFF; Start 10/10/18 at 02:00 Methylprednisolone Sodium Succinate (Solu-Medrol) 40 mg Q8 IV Last administered on 10/22/18 13:04; Admin Dose 40 MG; Start 10/14/18 at 14:00 Lorazepam (Ativan) 1 mg Q4H PRN GTB AGITATION/ANXIETY Last administered on 10/19/18 17:35; Admin Dose 1 MG; Start 10/14/18 at 13:00 Lisinopril (Zestril) 2.5 mg DAILY PO Last administered on 10/22/18 09:55; Admin Dose 2.5 MG; Start 10/15/18 at 09:00 Linagliptin (Tradjenta) 5 mg DAILY PO Last administered on 10/22/18 09:56; Admin Dose 5 MG; Start 10/16/18 at 10:30 Carvedilol (Coreg) 6.25 mg BID PO Last administered on 10/22/18 09:56; Admin Dose 6.25 MG; Start 10/17/18 at 21:00 Calcium Carbonate (Ca Carbonate) 1,250 mg TID GTB Last administered on 10/22/18 13:05; Admin Dose 1,250 MG; Start 10/17/18 at 14:00 Fentanyl (Duragesic 50 Mcg/Hr Patch) 1 patch Q72H TRANSDERM Last administered on 10/20/18 23:24; Admin Dose 1 PATCH; Start 10/17/18 at 20:30 Lorazepam (Ativan) 2 mg Q6H GTB Last administered on 10/22/18 15:56; Admin Dose 2 MG; Start 10/20/18 at 15:00 Quetiapine Fumarate (Seroquel) 100 mg BID GTB Last administered on 10/22/18 09:55; Admin Dose 100 MG; Start 10/21/18 at 21:00 Hydromorphone HCl (Dilaudid) 6 mg Q4H PRN PO MODERATE PAIN LEVEL 7-10 Last administered on 10/22/18at 18:07; Admin Dose 6 MG; Start 10/21/18 at 22:00 Calcitriol (Rocaltrol) 0.5 mcg TID PO Last administered on 10/22/18at 13:04; Admin Dose 0.5 MCG; Start 10/22/18 at 09:00 STEVE MOSCOSO NP Oct 22, 2018 18:49
[2018-10-22] MEDS: DIPHENHYDRAMINE 2.5 MG/ML 5ML CUP GTB PRN (20:25)
[2018-10-23] VITALS (34 sets, daily range): BP systolic 105–155; BP diastolic 24–82; PULSE 98–121; RESP 17–47
[2018-10-23] MEDS: ALBUTEROL HFA 8 GM INHALER INH SCH ×4 (01:10→20:07)
[2018-10-23] MEDS: IPRATROPIUM (HFA) 12.9 GM INHALER INH SCH ×4 (01:10→20:07)
[2018-10-23] MEDS: INSULIN ASPART [NOVOLOG] 3 ML PEN SC SCH ×4 (01:22→19:55)
[2018-10-23] MEDS: ACCU-CHEK XX SCH (01:23)
[2018-10-23] MEDS: LORAZEPAM 1 MG TAB GTB SCH ×4 (03:11→21:30)
[2018-10-23] MEDS: HYDROmorphONE 2 MG TAB PO PRN ×2 (03:46→19:11)
[2018-10-23] MEDS: LANSOPRAZOLE 30 MG CAP GTB SCH ×2 (05:00→17:36)
[2018-10-23] MEDS: METHYLPREDNISOLONE 40 MG INJ IV SCH ×3 (05:00→21:31)
[2018-10-23] MEDS: GABAPENTIN (50 MG/ML PO SYG) GTB SCH ×3 (05:00→23:08)
--- NOTE | 2018-10-23 08:13 | CONS ---
Assessment/Plan Assessment/Plan Problems: (1) Hypocalcemia Onset Date: ~ 10/14/2018 Status: Acute Comment: Coming back into line. Continue to follow along no additional extra treatments today. (2) Adrenal insufficiency due to steroid withdrawal Status: Chronic Comment: Patient is on high-dose steroids. Patient has been on this for roughly 9 days or so. Tapering of this dose as per primary team, remember the patient has adrenal insufficiency and has to be on some steroids (3) Diabetes mellitus type 2 in nonobese Status: Chronic Comment: Adequate control (4) Essential hypertension Status: Chronic Comment: Adequate control (5) Acquired hypothyroidism Status: Chronic Comment: Stable at this time with a normal TSH (6) Hypomagnesemia Status: Acute Comment: Will supplement this Consultation Date/Type/Reason Admit Date/Time Oct 09, 2018 at 12:16 Initial Consult Date 10/12/18 Type of Consult Endocrinology Reason for Consultation Hypocalcemia following significant hypercalcemia; diabetes mellitus type 2; iatrogenic adrenal insufficiency; functional quadriplegia; respiratory failure Requesting Provider: NOLA VIDAL MD Date/Time of Note DATE: 10/23/18 TIME: 08:11 24 HR Interval Summary Free Text/Dictation Patient is without change at this time Detailed Summary Endocrine: no complaints Exam/Review of Systems Exam Vitals Vital Signs Date Temp Pulse Resp B/P (MAP) Pulse Ox O2 O2 Flow FiO2 Time Delivery Rate 10/23/18 26 142/34 99 Mechanical 07:00 (70) Ventilator 10/23/18 112 06:00 10/23/18 60 05:28 10/23/18 98.8 04:00 Intake and Output 10/22/18 10/22/18 10/23/18 1515:00 23:00 07:00 IntakeIntake Total 370 ml 380 ml 290 ml OutputOutput Total 420 ml 900 ml 450 ml BalanceBalance -50 ml -520 ml -160 ml Exam No change in exam Constitutional: alert, oriented Results Result Diagram: 10/23/1843110/23/18431 Results 24hrs Laboratory Tests Test 10/22/18 10:14 10/22/18 13:03 10/22/18 20:49 10/23/18 01:21 Bedside Glucose 110 100 157 98 Test 10/23/18 04:32 White Blood Count 22.8 H Red Blood Count 3.33 L Hemoglobin 9.7 L Hematocrit 30.9 L Mean Corpuscular 92.8 Volume Mean Corpuscular 29.1 Hemoglobin Mean Corpuscular 31.4 L Hemoglobin Concent Red Cell Distribution 18.7 H Width Platelet Count 420 H Mean Platelet Volume 11.0 H Immature Granulocytes 3.700 H % Neutrophils % 90.1 H Lymphocytes % 3.4 L Monocytes % 2.5 Eosinophils % 0.0 Basophils % 0.3 Nucleated Red Blood 0.0 Cells % Immature Granulocytes 0.850 H # Neutrophils # 20.5 H Lymphocytes # 0.8 Monocytes # 0.6 Eosinophils # 0.0 Basophils # 0.1 Nucleated Red Blood 0.0 Cells # Sodium Level 135 Potassium Level 4.9 Chloride Level 92 L Carbon Dioxide Level 34 H Anion Gap 9 Blood Urea Nitrogen 28 H Creatinine 0.39 L Est Glomerular Filtrat > 60 Rate mL/min Glucose Level 123 Calcium Level 7.3 L Phosphorus Level 5.1 H Magnesium Level 1.6 L Total Bilirubin 0.2 Direct Bilirubin 0.00 Indirect Bilirubin 0.2 Aspartate Amino 39 Transf (AST/SGOT) Alanine 33 Aminotransferase (ALT/ SGPT) Alkaline Phosphatase 137 H Total Protein 5.3 L Albumin 2.8 L Globulin 2.50 Albumin/Globulin Ratio 1.12 Medications Medication Current Medications Acetaminophen (Tylenol Liquid) 650 mg Q4H PRN GTB MILD PAIN(1-3)OR ELEVATED TEMP Last administered on 10/16/18at 07:52; Admin Dose 650 MG; Start 10/09/18 at 14:00 Al Hydrox/Mg Hydrox/Simethicone (Mag-Al Plus) 15 ml Q6H PRN PO GASTROINTESTINAL UPSET Last administered on 10/17/18at 13:18; Admin Dose 15 ML; Start 10/09/18 at 14:00 Eye Lubricant (Artificial Tears Oph) 1 drop Q6H PRN BOTH EYES DRY EYES; Start 10/09/18 at 14:00 Bisacodyl (Dulcolax Supp) [address] CONSTIPATION; Start 10/09/18 at 14:00 Clonidine (Catapres) 0.1 mg DAILY PRN GTB ELEVATED BLOOD PRESSURE; Start 10/09/18 at 14:00 Diltiazem HCl (Cardizem Iv) 5 mg Q4 PRN IV ELEVATED HEART RATE Last administered on 10/18/18at 01:09; Admin Dose 5 MG; Start 10/09/18 at 14:00 Diphenhydramine HCl (Benadryl Liquid Cup) 25 mg Q6 PRN GTB ITCHING Last administered on 10/22/18 20:25; Admin Dose 25 MG; Start 10/09/18 at 14:00 Duloxetine HCl (Cymbalta) 30 mg DAILY PO Last administered on 10/22/18 09:56; Admin Dose 30 MG; Start 10/10/18 at 09:00 Epoetin Arpan (Epogen (Esrd)) 10,000 units TuSa@1300 SC Last administered on 10/22/18 13:05; Admin Dose 10,000 UNITS; Start 10/11/18 at 13:00 Gabapentin (Neurontin Liquid) 400 mg Q8 GTB Last administered on 10/23/18 05:00; Admin Dose 400 MG; Start 10/09/18 at 15:30 Hydralazine HCl (Apresoline) 10 mg Q4H PRN IV ELEVATED BLOOD PRESSURE; Start 10/09/18 at 14:00 Hydroxychloroquine Sulfate (Plaquenil) 200 mg BID PO Last administered on 10/22/18 20:26; Admin Dose 200 MG; Start 10/09/18 at 21:00 Diagnostic Test (Pha) (Accu-Chek) 1 ea 02 XX Last administered on 10/23/18 01:23; Admin Dose 1 EA; Start 10/10/18 at 02:00 Insulin Aspart (Novolog Insulin Pen) NOVOLOG *CUSTOM* ALGORITHM Q6H SC Last administered on 10/22/18 20:55; Admin Dose 1 UNIT; Start 10/09/18 at 14:00 Lactobacillus Acidophilus (Florajen3 Capsule) 1 each BID GTB Last administered on 10/22/18 20:25; Admin Dose 1 EACH; Start 10/09/18 at 21:00 Lansoprazole (Prevacid) 30 mg BID@,18 GTB Last administered on 10/23/18 05:00; Admin Dose 30 MG; Start 10/09/18 at 18:00 Levetiracetam (Keppra Liquid) 500 mg BID GTB Last administered on 10/22/18 20:23; Admin Dose 500 MG; Start 10/09/18 at 21:00 Magnesium Oxide (Mag-Ox 400) 400 mg BID GTB Last administered on 10/22/18 20:23; Admin Dose 400 MG; Start 10/09/18 at 21:00 Metoclopramide HCl (Reglan) 10 mg TID IV Last administered on 10/22/18at 20:25; Admin Dose 10 MG; Start 10/09/18 at 21:00 Miconazole Nitrate (Miconazole 2% Cr) 1 applic BID TOP Last administered on 10/22/18at 20:22; Admin Dose 1 APPLIC; Start 10/09/18 at 21:00 Miconazole Nitrate (Miconazole 2% Cr) 1 applic Q12 PRN TOP rash; Start 10/09/18 at 14:00 Ondansetron HCl (Zofran Inj) 4 mg Q4H PRN IV NAUSEA AND/OR VOMITING Last administered on 10/19/18at 16:37; Admin Dose 4 MG; Start 10/09/18 at 14:00 Polyethylene Glycol (Miralax) 17 gm DAILY PRN GTB CONSTIPATION; Start 10/09/18 at 14:00 Senna (Senokot) 2 tab Q8 PRN PO CONSTIPATION; Start 10/09/18 at 14:00 Trimethoprim/ Sulfamethoxazole (Bactrim Susp) 40 ml DAILY GTB Last administered on 10/22/18at 09:54; Admin Dose 40 ML; Start 10/10/18 at 09:00 Zolpidem Tartrate (Ambien) 5 mg HS PRN PO INSOMNIA Last administered on 10/21/18at 02:34; Admin Dose 5 MG; Start 10/09/18 at 14:00 Miscellaneous Information 1 ea NOTE XX ; Start 10/09/18 at 15:00 Glucose (Glutose) 15 gm Q15M PRN PO DECREASED GLUCOSE; Start 10/09/18 at 15:00 Glucose (Glutose) 22.5 gm Q15M PRN PO DECREASED GLUCOSE; Start 10/09/18 at 15:00 Dextrose (D50w Syringe) 25 ml Q15M PRN IV DECREASED GLUCOSE; Start 10/09/18 at 15:00 Dextrose (D50w Syringe) 50 ml Q15M PRN IV DECREASED GLUCOSE; Start 10/09/18 at 15:00 Glucagon (Glucagen) 1 mg Q15M PRN IM DECREASED GLUCOSE; Start 10/09/18 at 15:00 Glucose (Glutose) 15 gm Q15M PRN BUCCAL DECREASED GLUCOSE; Start 10/09/18 at 15:00 Sodium Chloride 500 ml @ 500 mls/hr Q1H PRN IV BLOOD PRESSURE SUPPORT Last administered on 10/10/18 07:59; Admin Dose 500 MLS/HR; Start 10/09/18 at 19:30 Albuterol (Ventolin Hfa) 4 puff Q6H RESP THERAPY INH Last administered on 10/23/18 01:10; Admin Dose 4 PUFF; Start 10/10/18 at 02:00 Ipratropium [place] (Atrovent Hfa) 4 puff Q6H RESP THERAPY INH Last administered on 10/23/18 01:10; Admin Dose 4 PUFF; Start 10/10/18 at 02:00 Methylprednisolone Sodium Succinate (Solu-Medrol) 40 mg Q8 IV Last administered on 10/23/18 05:00; Admin Dose 40 MG; Start 10/14/18 at 14:00 Lorazepam (Ativan) 1 mg Q4H PRN GTB AGITATION/ANXIETY Last administered on 10/19/18 17:35; Admin Dose 1 MG; Start 10/14/18 at 13:00 Lisinopril (Zestril) 2.5 mg DAILY PO Last administered on 10/22/18 09:55; Admin Dose 2.5 MG; Start 10/15/18 at 09:00 Linagliptin (Tradjenta) 5 mg DAILY PO Last administered on 10/22/18 09:56; Admin Dose 5 MG; Start 10/16/18 at 10:30 Carvedilol (Coreg) 6.25 mg BID PO Last administered on 10/22/18 20:26; Admin Dose 6.25 MG; Start 10/17/18 at 21:00 Calcium Carbonate (Ca Carbonate) 1,250 mg TID GTB Last administered on 10/22/18 20:23; Admin Dose 1,250 MG; Start 10/17/18 at 14:00 Fentanyl (Duragesic 50 Mcg/Hr Patch) 1 patch Q72H TRANSDERM Last administered on 10/20/18 23:24; Admin Dose 1 PATCH; Start 10/17/18 at 20:30 Lorazepam (Ativan) 2 mg Q6H GTB Last administered on 10/23/18 03:11; Admin Dose 2 MG; Start 10/20/18 at 15:00 Quetiapine Fumarate (Seroquel) 100 mg BID GTB Last administered on 10/22/18 20:25; Admin Dose 100 MG; Start 10/21/18 at 21:00 Hydromorphone HCl (Dilaudid) 6 mg Q4H PRN PO MODERATE PAIN LEVEL 7-10 Last administered on 10/23/18 03:46; Admin Dose 6 MG; Start 10/21/18 at 22:00 Calcitriol (Rocaltrol) 0.5 mcg TID PO Last administered on 10/22/18 20:23; Admin Dose 0.5 MCG; Start 10/22/18 at 09:00 KEV ISSA MD Oct 23, 2018 08:13
[2018-10-23] MEDS ORDERED: MAGNESIUM SULFATE 1 GM/D5W 100 ML ONE (08:29)
[2018-10-23] MEDS: QUETIAPINE 100 MG TAB GTB SCH ×2 (08:38→20:28)
[2018-10-23] MEDS: CALCITRIOL 0.25 MCG CAP PO SCH ×3 (08:39→20:28)
[2018-10-23] MEDS: LISINOPRIL 5 MG TAB PO SCH (08:39)
[2018-10-23] MEDS: HYDROXYCHLOROQUINE 200 MG TAB PO SCH ×2 (08:39→20:28)
[2018-10-23] MEDS: LINAGLIPTIN 5 MG TABLET PO SCH (08:40)
[2018-10-23] MEDS: DULOXETINE 30 MG CAP DR PO SCH (08:40)
[2018-10-23] MEDS: MAGNESIUM OXIDE 400 MG TAB GTB SCH ×2 (08:40→20:28)
[2018-10-23] MEDS: L ACIDOPHIL/B LACTIS/B LONGUM CAPSULE GTB SCH ×2 (08:40→20:28)
[2018-10-23] MEDS: METOCLOPRAMIDE 10 MG INJ IV SCH ×3 (08:43→20:28)
[2018-10-23] MEDS: CA CARBONATE (250 MG/ML) 5ML CUP GTB SCH ×3 (08:43→20:29)
[2018-10-23] MEDS: LEVETIRACETAM (100 MG/ML) 5ML CUP GTB SCH ×2 (08:43→20:28)
[2018-10-23] MEDS: TRIMETHOPRIM/SULFAMETHOX (PO SYG) GTB SCH (08:43)
[2018-10-23] MEDS: BALSAM PERU/CASTOR OIL 60 GM TUBE TOP SCH ×2 (08:46→20:30)
[2018-10-23] MEDS: MICONAZOLE 2% 30 GM CR TOP SCH ×2 (08:46→20:30)
--- NOTE | 2018-10-23 08:56 | CONS ---
Consult Date/Type/Reason Admit Date/Time Oct 09, 2018 at 12:16 Initial Consult Date 10/09/18 Type of Consult Pulmonary Requesting Provider: NOLA VIDAL MD Date/Time of Note DATE: 10/23/18 TIME: 08:56 Subjective Patient remained stable this morning no significant events overnight. Oxygen requirements continue to fluctuate based on his anxiety. Chest x-ray remains unchanged. Objective Vital Signs Date Temp Pulse Resp B/P (MAP) Pulse Ox O2 O2 Flow FiO2 Time Delivery Rate 10/23/18 98.7 121 28 114/26 95 Mechanical 08:00 (55) Ventilator 10/23/18 60 05:28 Intake and Output 10/22/18 10/22/18 10/23/18 1515:00 23:00 07:00 IntakeIntake Total 370 ml 380 ml 290 ml OutputOutput Total 420 ml 900 ml 450 ml BalanceBalance -50 ml -520 ml -160 ml Exam GENERAL: Elderly appearing gentleman on mechanical ventilation via tracheostomy VITAL SIGNS: per chart NECK: Supple. No JVD or lymphadenopathy. CARDIAC EXAM: S1, S2. No added sounds or murmurs. CHEST: Diminished air entry bilaterally with rales ABDOMEN: Soft, nontender. No guarding or rebound. EXTREMITIES: No cyanosis, clubbing or edema. NEUROLOGIC: Generalized weakness. No focal deficits. Vent Setting Ventilator Support Mode: AC, VC plus Fraction of Inspired Oxygen pe: 60 Positive End Expiratory Pressu: 5.0 Results/Medications Result Diagram: 10/23/18 0432 10/23/18 0432 Results 24 hrs Laboratory Tests Test 10/22/18 10:14 10/22/18 13:03 10/22/18 20:49 10/23/18 01:21 Bedside Glucose 110 100 157 98 Test 10/23/18 04:32 10/23/18 08:34 White Blood Count 22.8 H Red Blood Count 3.33 L Hemoglobin 9.7 L Hematocrit 30.9 L Mean Corpuscular 92.8 Volume Mean Corpuscular 29.1 Hemoglobin Mean Corpuscular 31.4 L Hemoglobin Concent Red Cell Distribution 18.7 H Width Platelet Count 420 H Mean Platelet Volume 11.0 H Immature Granulocytes 3.700 H % Neutrophils % 90.1 H Lymphocytes % 3.4 L Monocytes % 2.5 Eosinophils % 0.0 Basophils % 0.3 Nucleated Red Blood 0.0 Cells % Immature Granulocytes 0.850 H # Neutrophils # 20.5 H Lymphocytes # 0.8 Monocytes # 0.6 Eosinophils # 0.0 Basophils # 0.1 Nucleated Red Blood 0.0 Cells # Sodium Level 135 Potassium Level 4.9 Chloride Level 92 L Carbon Dioxide Level 34 H Anion Gap 9 Blood Urea Nitrogen 28 H Creatinine 0.39 L Est Glomerular > 60 Filtrat Rate mL/min Glucose Level 123 Calcium Level 7.3 L Phosphorus Level 5.1 H Magnesium Level 1.6 L Total Bilirubin 0.2 Direct Bilirubin 0.00 Indirect Bilirubin 0.2 Aspartate Amino 39 Transf (AST/SGOT) Alanine 33 Aminotransferase (ALT /SGPT) Alkaline Phosphatase 137 H Total Protein 5.3 L Albumin 2.8 L Globulin 2.50 Albumin/Globulin 1.12 Ratio Bedside Glucose 150 Medications Current Medications Acetaminophen (Tylenol Liquid) 650 mg Q4H PRN GTB MILD PAIN(1-3)OR ELEVATED TEMP Last administered on 10/16/18at 07:52; Admin Dose 650 MG; Start 10/09/18 at 14:00 Al Hydrox/Mg Hydrox/Simethicone (Mag-Al Plus) 15 ml Q6H PRN PO GASTROINTESTINAL UPSET Last administered on 10/17/18at 13:18; Admin Dose 15 ML; Start 10/09/18 at 14:00 Eye Lubricant (Artificial Tears Oph) 1 drop Q6H PRN BOTH EYES DRY EYES; Start 10/09/18 at 14:00 Bisacodyl (Dulcolax Supp) 10 mg DAILY PRN [place] CONSTIPATION; Start 10/09/18 at 14:00 Clonidine (Catapres) 0.1 mg DAILY PRN GTB ELEVATED BLOOD PRESSURE; Start 10/09/18 at 14:00 Diltiazem HCl (Cardizem Iv) 5 mg Q4 PRN IV ELEVATED HEART RATE Last administered on 10/18/18at 01:09; Admin Dose 5 MG; Start 10/09/18 at 14:00 Diphenhydramine HCl (Benadryl Liquid Cup) 25 mg Q6 PRN GTB ITCHING Last administered on 10/22/18at 20:25; Admin Dose 25 MG; Start 10/09/18 at 14:00 Duloxetine HCl (Cymbalta) 30 mg DAILY PO Last administered on 10/23/18at 08:40; Admin Dose 30 MG; Start 10/10/18 at 09:00 Epoetin Arpan (Epogen (Esrd)) 10,000 units TuSa@1300 SC Last administered on 10/22/18 13:05; Admin Dose 10,000 UNITS; Start 10/11/18 at 13:00 Gabapentin (Neurontin Liquid) 400 mg Q8 GTB Last administered on 10/23/18 05:00; Admin Dose 400 MG; Start 10/09/18 at 15:30 Hydralazine HCl (Apresoline) 10 mg Q4H PRN IV ELEVATED BLOOD PRESSURE; Start 10/09/18 at 14:00 Hydroxychloroquine Sulfate (Plaquenil) 200 mg BID PO Last administered on 10/23/18 08:39; Admin Dose 200 MG; Start 10/09/18 at 21:00 Diagnostic Test (Pha) (Accu-Chek) 1 ea 02 XX Last administered on 10/23/18 01:23; Admin Dose 1 EA; Start 10/10/18 at 02:00 Insulin Aspart (Novolog Insulin Pen) NOVOLOG *CUSTOM* ALGORITHM Q6H SC Last administered on 10/22/18 20:55; Admin Dose 1 UNIT; Start 10/09/18 at 14:00 Lactobacillus Acidophilus (Florajen3 Capsule) 1 each BID GTB Last administered on 10/23/18 08:40; Admin Dose 1 EACH; Start 10/09/18 at 21:00 Lansoprazole (Prevacid) 30 mg BID@06,18 GTB Last administered on 10/23/18 05:00; Admin Dose 30 MG; Start 10/09/18 at 18:00 Levetiracetam (Keppra Liquid) 500 mg BID GTB Last administered on 10/23/18 08:43; Admin Dose 500 MG; Start 10/09/18 at 21:00 Magnesium Oxide (Mag-Ox 400) 400 mg BID GTB Last administered on 10/23/18 08:40; Admin Dose 400 MG; Start 10/09/18 at 21:00 Metoclopramide HCl (Reglan) 10 mg TID IV Last administered on 10/23/18 08:43; Admin Dose 10 MG; Start 10/09/18 at 21:00 Miconazole Nitrate (Miconazole 2% Cr) 1 applic BID TOP Last administered on 10/23/18 08:46; Admin Dose 1 APPLIC; Start 10/09/18 at 21:00 Miconazole Nitrate (Miconazole 2% Cr) 1 applic Q12 PRN TOP rash; Start 10/09/18 at 14:00 Ondansetron HCl (Zofran Inj) 4 mg Q4H PRN IV NAUSEA AND/OR VOMITING Last administered on 10/19/18 16:37; Admin Dose 4 MG; Start 10/09/18 at 14:00 Polyethylene Glycol (Miralax) 17 gm DAILY PRN GTB CONSTIPATION; Start 10/09/18 at 14:00 Senna (Senokot) 2 tab Q8 PRN PO CONSTIPATION; Start 10/09/18 at 14:00 Trimethoprim/ Sulfamethoxazole (Bactrim Susp) 40 ml DAILY GTB Last administered on 10/23/18 08:43; Admin Dose 40 ML; Start 10/10/18 at 09:00 Zolpidem Tartrate (Ambien) 5 mg HS PRN PO INSOMNIA Last administered on 10/21/18 02:34; Admin Dose 5 MG; Start 10/09/18 at 14:00 Miscellaneous Information 1 ea NOTE XX ; Start 10/09/18 at 15:00 Glucose (Glutose) 15 gm Q15M PRN PO DECREASED GLUCOSE; Start 10/09/18 at 15:00 Glucose (Glutose) 22.5 gm Q15M PRN PO DECREASED GLUCOSE; Start 10/09/18 at 15:00 Dextrose (D50w Syringe) 25 ml Q15M PRN IV DECREASED GLUCOSE; Start 10/09/18 at 15:00 Dextrose (D50w Syringe) 50 ml Q15M PRN IV DECREASED GLUCOSE; Start 10/09/18 at 15:00 Glucagon (Glucagen) 1 mg Q15M PRN IM DECREASED GLUCOSE; Start 10/09/18 at 15:00 Glucose (Glutose) 15 gm Q15M PRN BUCCAL DECREASED GLUCOSE; Start 10/09/18 at 15:00 Sodium Chloride 500 ml @ 500 mls/hr Q1H PRN IV BLOOD PRESSURE SUPPORT Last administered on 10/10/18 07:59; Admin Dose 500 MLS/HR; Start 10/09/18 at 19:30 Albuterol (Ventolin Hfa) 4 puff Q6H RESP THERAPY INH Last administered on 10/23/18 01:10; Admin Dose 4 PUFF; Start 10/10/18 at 02:00 Ipratropium [place] (Atrovent Hfa) 4 puff Q6H RESP THERAPY INH Last administered on 10/23/18 01:10; Admin Dose 4 PUFF; Start 10/10/18 at 02:00 Methylprednisolone Sodium Succinate (Solu-Medrol) 40 mg Q8 IV Last administered on 10/23/18 05:00; Admin Dose 40 MG; Start 10/14/18 at 14:00 Lorazepam (Ativan) 1 mg Q4H PRN GTB AGITATION/ANXIETY Last administered on 10/19/18 17:35; Admin Dose 1 MG; Start 10/14/18 at 13:00 Lisinopril (Zestril) 2.5 mg DAILY PO Last administered on 10/23/18 08:39; Admin Dose 2.5 MG; Start 10/15/18 at 09:00 Linagliptin (Tradjenta) 5 mg DAILY PO Last administered on 10/23/18 08:40; Admin Dose 5 MG; Start 10/16/18 at 10:30 Carvedilol (Coreg) 6.25 mg BID PO Last administered on 10/23/18 08:45; Admin Dose 6.25 MG; Start 10/17/18 at 21:00 Calcium Carbonate (Ca Carbonate) 1,250 mg TID GTB Last administered on 10/23/18 08:43; Admin Dose 1,250 MG; Start 10/17/18 at 14:00 Fentanyl (Duragesic 50 Mcg/Hr Patch) 1 patch Q72H TRANSDERM Last administered on 10/20/18 23:24; Admin Dose 1 PATCH; Start 10/17/18 at 20:30 Lorazepam (Ativan) 2 mg Q6H GTB Last administered on 10/23/18 08:39; Admin Dose 2 MG; Start 10/20/18 at 15:00 Quetiapine Fumarate (Seroquel) 100 mg BID GTB Last administered on 10/23/18 08:38; Admin Dose 100 MG; Start 10/21/18 at 21:00 Hydromorphone HCl (Dilaudid) 6 mg Q4H PRN PO MODERATE PAIN LEVEL 7-10 Last administered on 3/10/19at 03:46; Admin Dose 6 MG; Start 10/21/18 at 22:00 Calcitriol (Rocaltrol) 0.5 mcg TID PO Last administered on 10/23/18at 08:39; A dmin Dose 0.5 MCG; Start 10/22/18 at 09:00 Magnesium Sulfate 3 gm/Dextrose 106 ml @ 35.333 mls/ hr ONCE ONCE IVPB ; Start 10/23/18 at 09:30; Stop 10/23/18 at 12:29 Assessment/Plan Hospital Course (Demo Recall) IMP: 1. Acute on chronic hypoxemic respiratory failure with underlying acute respiratory distress syndrome. 2. History of HSV esophagitis. 3. Chronic sepsis. 4. History of rheumatoid arthritis. 5. C-spine disease with functional quadriplegia. 6. Dysphagia with G-tube. PLAN: 1. Continue mechanical, decrease FiO2 as tolerated 2. Continue tube feeding 3. Rule out TB ID 4. PT eval as tolerated Consider family conference regarding goals of care. Transfer to telemetry when bed available Critical care time 40 minutes DALTON DURBIN MD, [facility] Oct 23, 2018 08:56
--- NOTE | 2018-10-23 09:17 | PN ---
DATE: 10/23/2018 SUBJECTIVE: The patient remains stable. No events overnight. The patient remains in serious condit ion. OBJECTIVE: VITAL SIGNS: Blood pressure is 143/34, respirations 26, pulse 110, temperature 98.6. HEENT: Head is normocephalic. NECK: Supple. HEART: Regular rate. LUNGS: Show diminished breath sounds at the base. ABDOMEN: Soft, nontender to palpation. No rebound or guarding. EXTREMITIES: Negative for clubbing, cyanosis, no edema. DERMATOLOGIC: No rashes. MUSCULOSKELETAL: No joint effusions. NEUROLOGIC: No change in exam. MEDICATIONS: The patient's medications have been reviewed. LABORATORY DATA: Shows sodium 135, potassium 4.9, BUN 28, creatinine 0.39. White count 22.8, platel et count 420. Phosphorus is 5.1, magnesium 1.6. MICROBIOLOGY: Has been reviewed. Cultures have been reviewed. Medications have been reviewed. ASSESSMENT AND PLAN: 1. Nonoliguric acute kidney injury. Etiology is secondary to hemodynamics. Renal function is impro lori. Continue to monitor. 2. Hypomagnesemia. We will replete with magnesium sulfate. 3. Mineral bone disorder. Continue to monitor calcium and phosphorus levels. The patient is status post pamidronate for hypercalcemia. 4. Ventilator dependent respiratory failure. Vent settings and ABG was reviewed. Continue to monit or. 5. Adrenal insufficiency. Continue Cortef. 6. Dysphagia. Continue tube feeding. 7. Sepsis secondary to pneumonia. The patient is completing antibiotic course. 8. Hypertension. Continue to monitor. 9. Tachyarrhythmia. Continue medical management. 10. Seizure disorder. Continue current treatment plan. 11. Anxiety disorder. Dictated By: UNA HONG/NTS Conf#: [id number] DID#: [id number] CC: CAMELIA VALENTINE MD; NOLA VIDAL MD;*End*
[2018-10-23] MEDS ORDERED: MAGNESIUM SULFATE 3 GM in DEXTROSE 5% 100 ML IVPB ONE (09:30)
--- NOTE | 2018-10-23 10:51 | CONS ---
[facility] HCIS Consult Follow-up Patient Name: Armand Quiroga Unit Number: [id number] Date of : 1965 Patient Status: Admitted Inpatient Attending Doctor: Nola Vidal MD Edit: NEMO NEVAREZ M.D. on 10/24/18 @ 01:36 Roque: I discussed the management with AGENTS' RECORDS CLERK Luis Alberto and agree with below. Assessment/Plan Assessment/Plan Hospital Course (Demo Recall) # sepsis, respiratory - recurrent sepsis on 10/08/2018 due to aspiration pneumonia, HCAP, improved - possible aspiration pneumonia, recurrent pneumonia due to citrobacter, improved - acute on chronic hypoxic and hypercarbic respiratory failure - persistent leukocytosis likely due to steroid margination - h/o tracheostomy on 08/26/2018 - h/o "Increased mild left apical pneumothorax" per CXR on 09/19/2018; no pneumothorax mentioned on subsequent CXR - h/o pneumomediastinum - h/o VAT on 08/11/2018 - h/o asthma/COPD exacerbation - h/o acute tracheobronchitis - h/o MAC infection but CT chest did not demonstrate features suggestive of this per chart review - h/o HCAP due to citrobacter, based on resp culture on 09/13/2018 - h/o aspergillus growing out of resp culture per (pulm note by Dr. Lopez) on 07/25/2018 - h/o elevated 1,3 [id number] level = 232 on 08/06/2018 - h/o MSSA septicemia # GI - diarrhea, C diff on 10/09/2018 was negative - h/o HSV esophagitis, took acyclovir x21 days from 08/26/2018 - h/o EGD, esophageal biopsy showed esophageal squamous mucosa showing acute inflammation, granulation tissue, and ulceration consistent with ulcerative esophagitis, rare multinucleated cells with morphology suggestive of vial cytopathic changes, No cardiac mucosa, intestinal metaplasia, dysplasia, or malignancy defined - GERD - PUD # renal/ - Hypokalemia, recurrent - CKD 2 - BPH # cardiac - tachycardia, persistent - ACD - HTN - HLD # endo - T2DM - Hgb A1c 7.2% - secondary adrenal insufficiency; steroid dependent - Hypoparathyroidism - Hypercalcemia - Pamidronate was ordered # neuro - toxic metabolic encephalopathy - Cervical myopathy - Severe cervical spinal cord stenosis with cord compression from C3-C5, s/p laminectomy in ~03/2018 - Chronic pain syndrome - Functional quadriplegia - Seizure d/o # other chronic conditions - RA with chronic steroid dependence - Immunocompromised status - Fibromyalgia - DDD - H/o multiple rib fracture - Pt completed: meropenem (09/25/2018-10/02/2018), vancomycin (09/25/18-09/28/18), pip/tazo (10/09/2018-10/15/2018) Recommendations: - pending: pneumocystis DFA from 10/18/2018, AFB culture x3 (AFB smear x3 have resulted negative) particular to r/o mycobacterium avium intracellulaire, quantiferon TB gold, coccidioides serology - continue Bactrim for pneumocystis PPX - continue to monitor off other systemic antibiotic - D/c Airborne precautions (AFB smears neg x3 from 10/20, 10/21, and 10/22) management d/w ARIANNA Velasquez and with Dr. Nevarez. Thank you Total critical care time spent: 40 min Consultation Date/Type/Reason Admit Date/Time Oct 09, 2018 at 12:16 Initial Consult Date 10/12/18 Type of Consult ID Requesting Provider: NOLA VIDAL MD Date/Time of Note DATE: 10/23/18 TIME: 10:48 24 HR Interval Summary Free Text/Dictation D/w ARIANNA Velasquez, the patient has remained afebrile. 3rd AFB smear prelim still pending. WBC 22.8 today. Patient on 60% fio2. Desaturates with anxiety episodes. Reviewed ROS with patient. Still c/o generalized pain. Nodded "yes" to sob. Otherwise ROS negative. At 1228 noted 3rd AFB smear negative. Exam/Review of Systems Exam Vitals Vital Signs Date Temp Pulse Resp B/P (MAP) Pulse Ox O2 O2 Flow FiO2 Time Delivery Rate 10/23/18 99 23 110/35 99 Mechanical 10:03 (60) Ventilator 10/23/18 98.7 08:00 10/23/18 60 08:00 Intake and Output 10/22/18 10/22/18 10/23/18 1515:00 23:00 07:00 IntakeIntake Total 370 ml 380 ml 330 ml OutputOutput Total 420 ml 900 ml 600 ml BalanceBalance -50 ml -520 ml -270 ml Allergies Coded Allergies No Known Allergy (Unverified10/12/18) Exam Constitutional: non-verbal, frail Psych: other (c/o pain) Head: normocephalic, atraumatic Eyes: nl conjunctiva, nl lids, nl sclera ENMT: nl external ears & nose, nl nasal mucosa & septum, mucosa pink and moist (no thrush) Neck: supple, non-tender, other (trach site is midline, site c/d/i, on vent, fio2 60%) Respiratory: normal air movement, diminished breath sounds Cardiovascular: regular rate and rhythm, nl pulses Gastrointestinal: soft, non-tender, other (GT site is c/d/i) Musculoskeletal: nl extremities to inspection Extremities: normal pulses Neurological: lethargic, other (eye tracks, follows simple commands, able to mouth words ) Skin: nl turgor, other (stage II coccygeal ulcer); No rash or lesions Results Result Diagram: 10/23/18 0432 10/23/18 0432 Results 24hrs Laboratory Tests Test 10/22/18 13:03 10/22/18 20:49 10/23/18 01:21 10/23/18 04:32 Bedside Glucose 100 157 98 White Blood Count 22.8 H Red Blood Count 3.33 L Hemoglobin 9.7 L Hematocrit 30.9 L Mean Corpuscular 92.8 Volume Mean Corpuscular 29.1 Hemoglobin Mean Corpuscular 31.4 L Hemoglobin Concent Red Cell Distribution 18.7 H Width Platelet Count 420 H Mean Platelet Volume 11.0 H Immature Granulocytes 3.700 H % Neutrophils % 90.1 H Lymphocytes % 3.4 L Monocytes % 2.5 Eosinophils % 0.0 Basophils % 0.3 Nucleated Red Blood 0.0 Cells % Immature Granulocytes 0.850 H # Neutrophils # 20.5 H Lymphocytes # 0.8 Monocytes # 0.6 Eosinophils # 0.0 Basophils # 0.1 Nucleated Red Blood 0.0 Cells # Sodium Level 135 Potassium Level 4.9 Chloride Level 92 L Carbon Dioxide Level 34 H Anion Gap 9 Blood Urea Nitrogen 28 H Creatinine 0.39 L Est Glomerular > 60 Filtrat Rate mL/min Glucose Level 123 Calcium Level 7.3 L Phosphorus Level 5.1 H Magnesium Level 1.6 L Total Bilirubin 0.2 Direct Bilirubin 0.00 Indirect Bilirubin 0.2 Aspartate Amino 39 Transf (AST/SGOT) Alanine 33 Aminotransferase (ALT /SGPT) Alkaline Phosphatase 137 H Total Protein 5.3 L Albumin 2.8 L Globulin 2.50 Albumin/Globulin 1.12 Ratio Test 10/23/18 08:34 Bedside Glucose 150 Imaging Imaging CXR 10/23/18 IMPRESSION: No significant change. Extensive bilateral perihilar and lower lobe increased interstitial changes. Mild cardiomegaly. Medications Medication Current Medications Acetaminophen (Tylenol Liquid) 650 mg Q4H PRN GTB MILD PAIN(1-3)OR ELEVATED TEMP Last administered on 10/16/18at 07:52; Admin Dose 650 MG; Start 10/09/18 at 14:00 Al Hydrox/Mg Hydrox/Simethicone (Mag-Al Plus) 15 ml Q6H PRN PO GASTROINTESTINAL UPSET Last administered on 10/17/18at 13:18; Admin Dose 15 ML; Start 10/09/18 at 14:00 Eye Lubricant (Artificial Tears Oph) 1 drop Q6H PRN BOTH EYES DRY EYES; Start 10/09/18 at 14:00 Bisacodyl (Dulcolax Supp) 10 mg DAILY PRN [place] CONSTIPATION; Start 10/09/18 at 14:00 Clonidine (Catapres) 0.1 mg DAILY PRN GTB ELEVATED BLOOD PRESSURE; Start at 14:00 Diltiazem HCl (Cardizem Iv) 5 mg Q4 PRN IV ELEVATED HEART RATE Last administered on 10/18/18at 01:09; Admin Dose 5 MG; Start 10/09/18 at 14:00 Diphenhydramine HCl (Benadryl Liquid Cup) 25 mg Q6 PRN GTB ITCHING Last administered on 10/22/18at 20:25; Admin Dose 25 MG; Start 10/09/18 at 14:00 Duloxetine HCl (Cymbalta) 30 mg DAILY PO Last administered on 10/23/18 08:40; Admin Dose 30 MG; Start 10/10/18 at 09:00 Epoetin Arpan (Epogen (Esrd)) 10,000 units TuSa@1300 SC Last administered on 10/22/18 13:05; Admin Dose 10,000 UNITS; Start 10/11/18 at 13:00 Gabapentin (Neurontin Liquid) 400 mg Q8 GTB Last administered on 10/23/18 05:00; Admin Dose 400 MG; Start 10/09/18 at 15:30 Hydralazine HCl (Apresoline) 10 mg Q4H PRN IV ELEVATED BLOOD PRESSURE; Start 10/09/18 at 14:00 Hydroxychloroquine Sulfate (Plaquenil) 200 mg BID PO Last administered on 10/23/18 08:39; Admin Dose 200 MG; Start 10/09/18 at 21:00 Diagnostic Test (Pha) (Accu-Chek) 1 ea 02 XX Last administered on 10/23/18 01:23; Admin Dose 1 EA; Start 10/10/18 at 02:00 Insulin Aspart (Novolog Insulin Pen) NOVOLOG *CUSTOM* ALGORITHM Q6H SC Last administered on 10/22/18 20:55; Admin Dose 1 UNIT; Start 10/09/18 at 14:00 Lactobacillus Acidophilus (Florajen3 Capsule) 1 each BID GTB Last administered on 10/23/18 08:40; Admin Dose 1 EACH; Start 10/09/18 at 21:00 Lansoprazole (Prevacid) 30 mg BID@,18 GTB Last administered on 10/23/18 05:00; Admin Dose 30 MG; Start 10/09/18 at 18:00 Levetiracetam (Keppra Liquid) 500 mg BID GTB Last administered on 10/23/18 08:43; Admin Dose 500 MG; Start 10/09/18 at 21:00 Magnesium Oxide (Mag-Ox 400) 400 mg BID GTB Last administered on 10/23/18 08:40; Admin Dose 400 MG; Start 10/09/18 at 21:00 Metoclopramide HCl (Reglan) 10 mg TID IV Last administered on 10/23/18 08:43; Admin Dose 10 MG; Start 10/09/18 at 21:00 Miconazole Nitrate (Miconazole 2% Cr) 1 applic BID TOP Last administered on 10/23/18at 08:46; Admin Dose 1 APPLIC; Start 10/09/18 at 21:00 Miconazole Nitrate (Miconazole 2% Cr) 1 applic Q12 PRN TOP rash; Start 10/09/18 at 14:00 Ondansetron HCl (Zofran Inj) 4 mg Q4H PRN IV NAUSEA AND/OR VOMITING Last administered on 10/19/18at 16:37; Admin Dose 4 MG; Start 10/09/18 at 14:00 Polyethylene Glycol (Miralax) 17 gm DAILY PRN GTB CONSTIPATION; Start 10/09/18 at 14:00 Senna (Senokot) 2 tab Q8 PRN PO CONSTIPATION; Start 10/09/18 at 14:00 Trimethoprim/ Sulfamethoxazole (Bactrim Susp) 40 ml DAILY GTB Last administered on 10/23/18at 08:43; Admin Dose 40 ML; Start 10/10/18 at 09:00 Zolpidem Tartrate (Ambien) 5 mg HS PRN PO INSOMNIA Last administered on 10/21/18at 02:34; Admin Dose 5 MG; Start 10/09/18 at 14:00 Miscellaneous Information 1 ea NOTE XX ; Start 10/09/18 at 15:00 Glucose (Glutose) 15 gm Q15M PRN PO DECREASED GLUCOSE; Start 10/09/18 at 15:00 Glucose (Glutose) 22.5 gm Q15M PRN PO DECREASED GLUCOSE; Start 10/09/18 at 15:00 Dextrose (D50w Syringe) 25 ml Q15M PRN IV DECREASED GLUCOSE; Start 10/09/18 at 15:00 Dextrose (D50w Syringe) 50 ml Q15M PRN IV DECREASED GLUCOSE; Start 10/09/18 at 15:00 Glucagon (Glucagen) 1 mg Q15M PRN IM DECREASED GLUCOSE; Start 10/09/18 at 15:00 Glucose (Glutose) 15 gm Q15M PRN BUCCAL DECREASED GLUCOSE; Start 10/09/18 at 15:00 Sodium Chloride 500 ml @ 500 mls/hr Q1H PRN IV BLOOD PRESSURE SUPPORT Last administered on 10/10/18at 07:59; Admin Dose 500 MLS/HR; Start 10/09/18 at 19:30 Albuterol (Ventolin Hfa) 4 puff Q6H RESP THERAPY INH Last administered on 10/23/18 01:10; Admin Dose 4 PUFF; Start 10/10/18 at 02:00 Ipratropium [place] (Atrovent Hfa) 4 puff Q6H RESP THERAPY INH Last administered on 10/23/18 01:10; Admin Dose 4 PUFF; Start 10/10/18 at 02:00 Methylprednisolone Sodium Succinate (Solu-Medrol) 40 mg Q8 IV Last administered on 10/23/18 05:00; Admin Dose 40 MG; Start 10/14/18 at 14:00 Lorazepam (Ativan) 1 mg Q4H PRN GTB AGITATION/ANXIETY Last administered on 10/19/18 17:35; Admin Dose 1 MG; Start 10/14/18 at 13:00 Lisinopril (Zestril) 2.5 mg DAILY PO Last administered on 10/23/18 08:39; Admin Dose 2.5 MG; Start 10/15/18 at 09:00 Linagliptin (Tradjenta) 5 mg DAILY PO Last administered on 10/23/18 08:40; Admin Dose 5 MG; Start 10/16/18 at 10:30 Carvedilol (Coreg) 6.25 mg BID PO Last administered on 10/23/18 08:45; Admin Dose 6.25 MG; Start 10/17/18 at 21:00 Calcium Carbonate (Ca Carbonate) 1,250 mg TID GTB Last administered on 10/23/18 08:43; Admin Dose 1,250 MG; Start 10/17/18 at 14:00 Fentanyl (Duragesic 50 Mcg/Hr Patch) 1 patch Q72H TRANSDERM Last administered on 10/20/18 23:24; Admin Dose 1 PATCH; Start 10/17/18 at 20:30 Lorazepam (Ativan) 2 mg Q6H GTB Last administered on 10/23/18 08:39; Admin Dose 2 MG; Start 10/20/18 at 15:00 Quetiapine Fumarate (Seroquel) 100 mg BID GTB Last administered on 10/23/18 08:38; Admin Dose 100 MG; Start 10/21/18 at 21:00 Hydromorphone HCl (Dilaudid) 6 mg Q4H PRN PO MODERATE PAIN LEVEL 7-10 Last administered on 10/23/18 03:46; Admin Dose 6 MG; Start 10/21/18 at 22:00 Calcitriol (Rocaltrol) 0.5 mcg TID PO Last administered on 10/23/18 08:39; Admin Dose 0.5 MCG; Start 10/22/18 at 09:00 Magnesium Sulfate 3 gm/Dextrose 106 ml @ 35.333 mls/ hr ONCE ONCE IVPB Last administered on 10/23/18at 10:11; Admin Dose 35.333 MLS/HR; Start 10/23/18 at 09:30; Stop 10/23/18 at 12:29 STEVE MOSCOSO NP Oct 23, 2018 10:51
--- NOTE | 2018-10-23 11:01 | PN ---
Date/Time of Note Date/Time of Note DATE: 10/23/18 TIME: 11:00 Assessment/Plan VTE Prophylaxis Risk score (from Ns)>0 risk: 6 SCD applied (from Ns): Yes Pharmacological prophylaxis: LMWH Lines/Catheters IV C[facility]ter [facility]from [facility] Mid Line Urinary Cath still in place: No Assessment/Plan Hospital Course - Hypomagnesium- replaced per nephro- am Mag lab - Acute on chronic hypoxemic respiratory failure with underlying ARDS, continue ventilatory support. - Dr. Villa is following in pulmonology consultation. - Acute kidney injury, continue to monitor BUN and creatinine. G-tube feeding changed to renal source. - Dr. Hobson is following in nephrology consultation. - Leukocytosis 2/2 steroid dependency 2/2 RA - afebrile; BS stable -ID follows -Tachycardia, Dr. Joshi is following in cardiology consultation. - Cardiomyopathy with EF 35-40% - Rheumatoid arthritis with steroid dependence. The patient's pain seems to be controlled with the current dose of fentanyl. - Dysphagia. Continue GT feeding. - Anemia of chronic disease. - Thrombocytosis- monitor - Hypoparathyroidism with recent hypercalcemia, status post pamidronate, resolved. - Hypertension. - Functional quadriplegia - Hx of severe cervical spinal cord stenosis with cord compression from C3-C5, s/p laminectomy. - History of fibromyalgia rheumatica - Hx of VAT on 08/11/2018 Result Diagram: 10/23/18 0432 10/23/18 0432 Results 24hrs Laboratory Tests Test 10/22/18 13:03 10/22/18 20:49 10/23/18 01:21 10/23/18 04:32 Bedside Glucose 100 157 98 White Blood Count 22.8 H Red Blood Count 3.33 L Hemoglobin 9.7 L Hematocrit 30.9 L Mean Corpuscular 92.8 Volume Mean Corpuscular 29.1 Hemoglobin Mean Corpuscular 31.4 L Hemoglobin Concent Red Cell Distribution 18.7 H Width Platelet Count 420 H Mean Platelet Volume 11.0 H Immature Granulocytes 3.700 H % Neutrophils % 90.1 H Lymphocytes % 3.4 L Monocytes % 2.5 Eosinophils % 0.0 Basophils % 0.3 Nucleated Red Blood 0.0 Cells % Immature Granulocytes 0.850 H # Neutrophils # 20.5 H Lymphocytes # 0.8 Monocytes # 0.6 Eosinophils # 0.0 Basophils # 0.1 Nucleated Red Blood 0.0 Cells # Sodium Level 135 Potassium Level 4.9 Chloride Level 92 L Carbon Dioxide Level 34 H Anion Gap 9 Blood Urea Nitrogen 28 H Creatinine 0.39 L Est Glomerular > 60 Filtrat Rate mL/min Glucose Level 123 Calcium Level 7.3 L Phosphorus Level 5.1 H Magnesium Level 1.6 L Total Bilirubin 0.2 Direct Bilirubin 0.00 Indirect Bilirubin 0.2 Aspartate Amino 39 Transf (AST/SGOT) Alanine 33 Aminotransferase (ALT /SGPT) Alkaline Phosphatase 137 H Total Protein 5.3 L Albumin 2.8 L Globulin 2.50 Albumin/Globulin 1.12 Ratio Test 10/23/18 08:34 Bedside Glucose 150 Subjective 24 Hr Interval Summary Free Text/Dictation Patient resting comfortably on ventilator Exam/Review of Systems Exam Vitals Vital Signs Date Temp Pulse Resp B/P (MAP) Pulse Ox O2 O2 Flow FiO2 Time Delivery Rate 10/23/18 99 23 110/35 99 Mechanical 10:03 (60) Ventilator 10/23/18 98.7 08:00 10/23/18 60 08:00 Intake and Output 10/22/18 10/22/18 10/23/18 1515:00 23:00 07:00 IntakeIntake Total 370 ml 380 ml 330 ml OutputOutput Total 420 ml 900 ml 600 ml BalanceBalance -50 ml -520 ml -270 ml Constitutional: well developed Head: normocephalic, atraumatic Neck: supple Respiratory: diminished breath sounds Cardiovascular: regular rate and rhythm Gastrointestinal: soft, non-tender Extremities: normal pulses Results Results 24hrs Laboratory Tests Test 10/22/18 13:03 10/22/18 20:49 10/23/18 01:21 10/23/18 04:32 Bedside Glucose 100 157 98 White Blood Count 22.8 H Red Blood Count 3.33 L Hemoglobin 9.7 L Hematocrit 30.9 L Mean Corpuscular 92.8 Volume Mean Corpuscular 29.1 Hemoglobin Mean Corpuscular 31.4 L Hemoglobin Concent Red Cell Distribution 18.7 H Width Platelet Count 420 H Mean Platelet Volume 11.0 H Immature Granulocytes 3.700 H % Neutrophils % 90.1 H Lymphocytes % 3.4 L Monocytes % 2.5 Eosinophils % 0.0 Basophils % 0.3 Nucleated Red Blood 0.0 Cells % Immature Granulocytes 0.850 H # Neutrophils # 20.5 H Lymphocytes # 0.8 Monocytes # 0.6 Eosinophils # 0.0 Basophils # 0.1 Nucleated Red Blood 0.0 Cells # Sodium Level 135 Potassium Level 4.9 Chloride Level 92 L Carbon Dioxide Level 34 H Anion Gap 9 Blood Urea Nitrogen 28 H Creatinine 0.39 L Est Glomerular > 60 Filtrat Rate mL/min Glucose Level 123 Calcium Level 7.3 L Phosphorus Level 5.1 H Magnesium Level 1.6 L Total Bilirubin 0.2 Direct Bilirubin 0.00 Indirect Bilirubin 0.2 Aspartate Amino 39 Transf (AST/SGOT) Alanine 33 Aminotransferase (ALT /SGPT) Alkaline Phosphatase 137 H Total Protein 5.3 L Albumin 2.8 L Globulin 2.50 Albumin/Globulin 1.12 Ratio Test 10/23/18 08:34 Bedside Glucose 150 Medications Medication Current Medications Acetaminophen (Tylenol Liquid) 650 mg Q4H PRN GTB MILD PAIN(1-3)OR ELEVATED TEMP Last administered on 10/16/18at 07:52; Admin Dose 650 MG; Start 10/09/18 at 14:00 Al Hydrox/Mg Hydrox/Simethicone (Mag-Al Plus) 15 ml Q6H PRN PO GASTROINTESTINAL UPSET Last administered on 10/17/18at 13:18; Admin Dose 15 ML; Start 10/09/18 at 14:00 Eye Lubricant (Artificial Tears Oph) 1 drop Q6H PRN BOTH EYES DRY EYES; Start 10/09/18 at 14:00 Bisacodyl (Dulcolax Supp) 10 mg DAILY PRN [place] CONSTIPATION; Start 10/09/18 at 14:00 Clonidine (Catapres) 0.1 mg DAILY PRN GTB ELEVATED BLOOD PRESSURE; Start 10/09/18 at 14:00 Diltiazem HCl (Cardizem Iv) 5 mg Q4 PRN IV ELEVATED HEART RATE Last administered on 10/18/18at 01:09; Admin Dose 5 MG; Start 10/09/18 at 14:00 Diphenhydramine HCl (Benadryl Liquid Cup) 25 mg Q6 PRN GTB ITCHING Last administered on 10/22/18at 20:25; Admin Dose 25 MG; Start 10/09/18 at 14:00 Duloxetine HCl (Cymbalta) 30 mg DAILY PO Last administered on 10/23/18at 08:40; Admin Dose 30 MG; Start 10/10/18 at 09:00 Epoetin Arpan (Epogen (Esrd)) 10,000 units TuSa@1300 SC Last administered on 10/22/18 13:05; Admin Dose 10,000 UNITS; Start 10/11/18 at 13:00 Gabapentin (Neurontin Liquid) 400 mg Q8 GTB Last administered on 10/23/18 05:00; Admin Dose 400 MG; Start 10/09/18 at 15:30 Hydralazine HCl (Apresoline) 10 mg Q4H PRN IV ELEVATED BLOOD PRESSURE; Start 10/09/18 at 14:00 Hydroxychloroquine Sulfate (Plaquenil) 200 mg BID PO Last administered on 10/23/18 08:39; Admin Dose 200 MG; Start 10/09/18 at 21:00 Diagnostic Test (Pha) (Accu-Chek) 1 ea 02 XX Last administered on 10/23/18 01:23; Admin Dose 1 EA; Start 10/10/18 at 02:00 Insulin Aspart (Novolog Insulin Pen) NOVOLOG *CUSTOM* ALGORITHM Q6H SC Last administered on 10/22/18 20:55; Admin Dose 1 UNIT; Start 10/09/18 at 14:00 Lactobacillus Acidophilus (Florajen3 Capsule) 1 each BID GTB Last administered on 10/23/18 08:40; Admin Dose 1 EACH; Start 10/09/18 at 21:00 Lansoprazole (Prevacid) 30 mg BID@06,18 GTB Last administered on 10/23/18 05:00; Admin Dose 30 MG; Start 10/09/18 at 18:00 Levetiracetam (Keppra Liquid) 500 mg BID GTB Last administered on 10/23/18 08:43; Admin Dose 500 MG; Start 10/09/18 at 21:00 Magnesium Oxide (Mag-Ox 400) 400 mg BID GTB Last administered on 10/23/18 08:40; Admin Dose 400 MG; Start 10/09/18 at 21:00 Metoclopramide HCl (Reglan) 10 mg TID IV Last administered on 10/23/18 08:43; Admin Dose 10 MG; Start 10/09/18 at 21:00 Miconazole Nitrate (Miconazole 2% Cr) 1 applic BID TOP Last administered on 10/23/18 08:46; Admin Dose 1 APPLIC; Start 10/09/18 at 21:00 Miconazole Nitrate (Miconazole 2% Cr) 1 applic Q12 PRN TOP rash; Start 10/09/18 at 14:00 Ondansetron HCl (Zofran Inj) 4 mg Q4H PRN IV NAUSEA AND/OR VOMITING Last administered on 10/19/18 16:37; Admin Dose 4 MG; Start 10/09/18 at 14:00 Polyethylene Glycol (Miralax) 17 gm DAILY PRN GTB CONSTIPATION; Start 10/09/18 at 14:00 Senna (Senokot) 2 tab Q8 PRN PO CONSTIPATION; Start 10/09/18 at 14:00 Trimethoprim/ Sulfamethoxazole (Bactrim Susp) 40 ml DAILY GTB Last administered on 10/23/18 08:43; Admin Dose 40 ML; Start 10/10/18 at 09:00 Zolpidem Tartrate (Ambien) 5 mg HS PRN PO INSOMNIA Last administered on 10/21/18 02:34; Admin Dose 5 MG; Start 10/09/18 at 14:00 Miscellaneous Information 1 ea NOTE XX ; Start 10/09/18 at 15:00 Glucose (Glutose) 15 gm Q15M PRN PO DECREASED GLUCOSE; Start 10/09/18 at 15:00 Glucose (Glutose) 22.5 gm Q15M PRN PO DECREASED GLUCOSE; Start 10/09/18 at 15:00 Dextrose (D50w Syringe) 25 ml Q15M PRN IV DECREASED GLUCOSE; Start 10/09/18 at 15:00 Dextrose (D50w Syringe) 50 ml Q15M PRN IV DECREASED GLUCOSE; Start 10/09/18 at 15:00 Glucagon (Glucagen) 1 mg Q15M PRN IM DECREASED GLUCOSE; Start 10/09/18 at 15:00 Glucose (Glutose) 15 gm Q15M PRN BUCCAL DECREASED GLUCOSE; Start 10/09/18 at 15:00 Sodium Chloride 500 ml @ 500 mls/hr Q1H PRN IV BLOOD PRESSURE SUPPORT Last administered on 10/10/18 07:59; Admin Dose 500 MLS/HR; Start 10/09/18 at 19:30 Albuterol (Ventolin Hfa) 4 puff Q6H RESP THERAPY INH Last administered on 10/23/18 01:10; Admin Dose 4 PUFF; Start 10/10/18 at 02:00 Ipratropium [place] (Atrovent Hfa) 4 puff Q6H RESP THERAPY INH Last admi nistered on 10/23/18 01:10; Admin Dose 4 PUFF; Start 10/10/18 at 02:00 Methylprednisolone Sodium Succinate (Solu-Medrol) 40 mg Q8 IV Last administered on 10/23/18 05:00; Admin Dose 40 MG; Start 10/14/18 at 14:00 Lorazepam (Ativan) 1 mg Q4H PRN GTB AGITATION/ANXIETY Last administered on 10/19/18 17:35; Admin Dose 1 MG; Start 10/14/18 at 13:00 Lisinopril (Zestril) 2.5 mg DAILY PO Last administered on 10/23/18 08:39; Admin Dose 2.5 MG; Start 10/15/18 at 09:00 Linagliptin (Tradjenta) 5 mg DAILY PO Last administered on 10/23/18 08:40; Admin Dose 5 MG; Start 10/16/18 at 10:30 Carvedilol (Coreg) 6.25 mg BID PO Last administered on 10/23/18 08:45; Admin Dose 6.25 MG; Start 10/17/18 at 21:00 Calcium Carbonate (Ca Carbonate) 1,250 mg TID GTB Last administered on 10/23/18 08:43; Admin Dose 1,250 MG; Start 10/17/18 at 14:00 Fentanyl (Duragesic 50 Mcg/Hr Patch) 1 patch Q72H TRANSDERM Last administered on 10/20/18 23:24; Admin Dose 1 PATCH; Start 10/17/18 at 20:30 Lorazepam (Ativan) 2 mg Q6H GTB Last administered on 10/23/18 08:39; Admin Dose 2 MG; Start 10/20/18 at 15:00 Quetiapine Fumarate (Seroquel) 100 mg BID GTB Last administered on 10/23/18 08:38; Admin Dose 100 MG; Start 10/21/18 at 21:00 Hydromorphone HCl (Dilaudid) 6 mg Q4H PRN PO MODERATE PAIN LEVEL 7-10 Last administered on 3/10/19at 03:46; Admin Dose 6 MG; Start 10/21/18 at 22:00 Calcitriol (Rocaltrol) 0.5 mcg TID PO Last administered on 10/23/18at 08:39; Admin Dose 0.5 MCG; Start 10/22/18 at 09:00 Magnesium Sulfate 3 gm/Dextrose 106 ml @ 35.333 mls/ hr ONCE ONCE IVPB Last administered on 10/23/18at 10:11; Admin Dose 35.333 MLS/HR; Start 10/23/18 at 09:30; Stop 10/23/18 at 12:29 ANGELES HO Oct 23, 2018 11:01
--- NOTE | 2018-10-23 11:43 | CONS ---
Assessment/Plan Assessment/Plan Hospital Course (Demo Recall) IAssessment/Plan (Daily) Interval History- No acute events overnight, tolerating tube feeds well, no residue, on airborne precautions, being worked up for TB 1. Respiratory failure secondary to pneumonia versus interstitial pneumonitis from rheumatoid arthritis versus mild aspiration. -on Bactrim 2. Severe rheumatoid arthritis. 3. Quadriplegia. 4. Adrenal insufficiency. 5. Gastroparesis. -Reglan, denies nausea 6. Hypothyroidism. 7. Chronic pain syndrome. 8. Hypertension. 9. Diarrhea -VRE in stool -FOB neg 10. Leukocytosis secondary to steroids Swallow eval: Impression: Oropharyngeal dysphagia associated with reduced oropharyngeal strength/coordination, delayed timing of swallowing and reduced coordination of breath with swallow safety impacting swallow safety. Pt is not safe to initiate p.o intake and is at high risk of aspiration. Recommendation: 1. Initiate dysphagia therapy 3-5x per week for 1-2 weeks 2. Keep NPO+PEG tube feeds for primary means of nutrition/hydration/medication delivery 3. Anticipate need for in-line PMV evaluation one respiratory status improves and is stabilized 4. ongoing assessment and BOT and oropharyngeal strengthening exercises, aswell as pt/family education and counseling 5. Anticipate need for MBSS prior to initiation of p.o intake PLAN: ID recommendations Continue present care Nothing by mouth per swallow eval results Continue with tube feeds check residuals q 4 hours Continue Reglan. Aspiration precautions. So far there is no evidence of aspiration. 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 Consultation Date/Type/Reason Admit Date/Time Oct 09, 2018 at 12:16 Initial Consult Date 10/12/18 Requesting Provider: NOLA VIDAL MD Date/Time of Note DATE: 10/23/18 TIME: 11:41 Exam/Review of Systems Exam Vitals Vital Signs Date Temp Pulse Resp B/P (MAP) Pulse Ox O2 O2 Flow FiO2 Time Delivery Rate 10/23/18 98 23 105/36 100 Mechanical 11:00 (59) Ventilator 10/23/18 98.7 08:00 10/23/18 60 08:00 Intake and Output 10/22/18 10/22/18 10/23/18 1515:00 23:00 07:00 IntakeIntake Total 370 ml 380 ml 330 ml OutputOutput Total 420 ml 900 ml 600 ml BalanceBalance -50 ml -520 ml -270 ml Constitutional: alert, other (On mechanical ventilation via tach) Psych: no complaints Head: normocephalic, atraumatic Eyes: nl conjunctiva Neck: supple (Trach) Respiratory: diminished breath sounds Cardiovascular: regular rate and rhythm Gastrointestinal: soft, non-tender Musculoskeletal: nl extremities to inspection Extremities: normal pulses Neurological: other (generalized weakness) Results Result Diagram: 10/23/1843110/23/182 Results 24hrs Laboratory Tests Test 10/22/18 13:03 10/22/18 20:49 10/23/18 01:21 10/23/18 04:32 Bedside Glucose 100 157 98 White Blood Count 22.8 H Red Blood Count 3.33 L Hemoglobin 9.7 L Hematocrit 30.9 L Mean Corpuscular 92.8 Volume Mean Corpuscular 29.1 Hemoglobin Mean Corpuscular 31.4 L Hemoglobin Concent Red Cell Distribution 18.7 H Width Platelet Count 420 H Mean Platelet Volume 11.0 H Immature Granulocytes 3.700 H % Neutrophils % 90.1 H Lymphocytes % 3.4 L Monocytes % 2.5 Eosinophils % 0.0 Basophils % 0.3 Nucleated Red Blood 0.0 Cells % Immature Granulocytes 0.850 H # Neutrophils # 20.5 H Lymphocytes # 0.8 Monocytes # 0.6 Eosinophils # 0.0 Basophils # 0.1 Nucleated Red Blood 0.0 Cells # Sodium Level 135 Potassium Level 4.9 Chloride Level 92 L Carbon Dioxide Level 34 H Anion Gap 9 Blood Urea Nitrogen 28 H Creatinine 0.39 L Est Glomerular > 60 Filtrat Rate mL/min Glucose Level 123 Calcium Level 7.3 L Phosphorus Level 5.1 H Magnesium Level 1.6 L Total Bilirubin 0.2 Direct Bilirubin 0.00 Indirect Bilirubin 0.2 Aspartate Amino 39 Transf (AST/SGOT) Alanine 33 Aminotransferase (ALT /SGPT) Alkaline Phosphatase 137 H Total Protein 5.3 L Albumin 2.8 L Globulin 2.50 Albumin/Globulin 1.12 Ratio Test 10/23/18 08:34 Bedside Glucose 150 Medications Medication Current Medications Acetaminophen (Tylenol Liquid) 650 mg Q4H PRN GTB MILD PAIN(1-3)OR ELEVATED TEMP Last administered on 10/16/18 07:52; Admin Dose 650 MG; Start 10/09/18 at 14:00 Al Hydrox/Mg Hydrox/Simethicone (Mag-Al Plus) 15 ml Q6H PRN PO GASTROINTESTINAL UPSET Last administered on 10/17/18 13:18; Admin Dose 15 ML; Start 10/09/18 at 14:00 Eye Lubricant (Artificial Tears Oph) 1 drop Q6H PRN BOTH EYES DRY EYES; Start 10/09/18 at 14:00 Bisacodyl (Dulcolax Supp) 10 mg DAILY PRN [place] CONSTIPATION; Start 10/09/18 at 14:00 Clonidine (Catapres) 0.1 mg DAILY PRN GTB ELEVATED BLOOD PRESSURE; Start 10/09/18 at 14:00 Diltiazem HCl (Cardizem Iv) 5 mg Q4 PRN IV ELEVATED HEART RATE Last administered on 10/18/18 01:09; Admin Dose 5 MG; Start 10/09/18 at 14:00 Diphenhydramine HCl (Benadryl Liquid Cup) 25 mg Q6 PRN GTB ITCHING Last administered on 10/22/18 20:25; Admin Dose 25 MG; Start 10/09/18 at 14:00 Duloxetine HCl (Cymbalta) 30 mg DAILY PO Last administered on 10/23/18 08:40; Admin Dose 30 MG; Start 10/10/18 at 09:00 Epoetin Arpan (Epogen (Esrd)) 10,000 units TuSa@1300 SC Last administered on 10/22/18 13:05; Admin Dose 10,000 UNITS; Start 10/11/18 at 13:00 Gabapentin (Neurontin Liquid) 400 mg Q8 GTB Last administered on 10/23/18 05:00; Admin Dose 400 MG; Start 10/09/18 at 15:30 Hydralazine HCl (Apresoline) 10 mg Q4H PRN IV ELEVATED BLOOD PRESSURE; Start 10/09/18 at 14:00 Hydroxychloroquine Sulfate (Plaquenil) 200 mg BID PO Last administered on 10/23/18 08:39; Admin Dose 200 MG; Start 10/09/18 at 21:00 Diagnostic Test (Pha) (Accu-Chek) 1 ea 02 XX Last administered on 10/23/18 01:23; Admin Dose 1 EA; Start 10/10/18 at 02:00 Insulin Aspart (Novolog Insulin Pen) NOVOLOG *CUSTOM* ALGORITHM Q6H SC Last administered on 10/22/18 20:55; Admin Dose 1 UNIT; Start 10/09/18 at 14:00 Lactobacillus Acidophilus (Florajen3 Capsule) 1 each BID GTB Last administered on 10/23/18 08:40; Admin Dose 1 EACH; Start 10/09/18 at 21:00 Lansoprazole (Prevacid) 30 mg BID@,18 GTB Last administered on 10/23/18 05:00; Admin Dose 30 MG; Start 10/09/18 at 18:00 Levetiracetam (Keppra Liquid) 500 mg BID GTB Last administered on 10/23/18 08:43; Admin Dose 500 MG; Start 10/09/18 at 21:00 Magnesium Oxide (Mag-Ox 400) 400 mg BID GTB Last administered on 10/23/18 08:40; Admin Dose 400 MG; Start 10/09/18 at 21:00 Metoclopramide HCl (Reglan) 10 mg TID IV Last administered on 10/23/18 08:43; Admin Dose 10 MG; Start 10/09/18 at 21:00 Miconazole Nitrate (Miconazole 2% Cr) 1 applic BID TOP Last administered on 10/23/18 08:46; Admin Dose 1 APPLIC; Start 10/09/18 at 21:00 Miconazole Nitrate (Miconazole 2% Cr) 1 applic Q12 PRN TOP rash; Start 10/09/18 at 14:00 Ondansetron HCl (Zofran Inj) 4 mg Q4H PRN IV NAUSEA AND/OR VOMITING Last administered on 10/19/18 16:37; Admin Dose 4 MG; Start 10/09/18 at 14:00 Polyethylene Glycol (Miralax) 17 gm DAILY PRN GTB CONSTIPATION; Start 10/09/18 at 14:00 Senna (Senokot) 2 tab Q8 PRN PO CONSTIPATION; Start 10/09/18 at 14:00 Trimethoprim/ Sulfamethoxazole (Bactrim Susp) 40 ml DAILY GTB Last administered on 10/23/18 08:43; Admin Dose 40 ML; Start 10/10/18 at 09:00 Zolpidem Tartrate (Ambien) 5 mg HS PRN PO INSOMNIA Last administered on 10/21/18 02:34; Admin Dose 5 MG; Start 10/09/18 at 14:00 Miscellaneous Information 1 ea NOTE XX ; Start 10/09/18 at 15:00 Glucose (Glutose) 15 gm Q15M PRN PO DECREASED GLUCOSE; Start 10/09/18 at 15:00 Glucose (Glutose) 22.5 gm Q15M PRN PO DECREASED GLUCOSE; Start 10/09/18 at 15:00 Dextrose (D50w Syringe) 25 ml Q15M PRN IV DECREASED GLUCOSE; Start 10/09/18 at 15:00 Dextrose (D50w Syringe) 50 ml Q15M PRN IV DECREASED GLUCOSE; Start 10/09/18 at 15:00 Glucagon (Glucagen) 1 mg Q15M PRN IM DECREASED GLUCOSE; Start 10/09/18 at 15:00 Glucose (Glutose) 15 gm Q15M PRN BUCCAL DECREASED GLUCOSE; Start 10/09/18 at 15:00 Sodium Chloride 500 ml @ 500 mls/hr Q1H PRN IV BLOOD PRESSURE SUPPORT Last administered on 10/10/18at 07:59; Admin Dose 500 MLS/HR; Start 10/09/18 at 19:30 Albuterol (Ventolin Hfa) 4 puff Q6H RESP THERAPY INH Last administered on 10/23/18 01:10; Admin Dose 4 PUFF; Start 10/10/18 at 02:00 Ipratropium [place] (Atrovent Hfa) 4 puff Q6H RESP THERAPY INH Last administered on 10/23/18 01:10; Admin Dose 4 PUFF; Start 10/10/18 at 02:00 Methylprednisolone Sodium Succinate (Solu-Medrol) 40 mg Q8 IV Last administered on 10/23/18 05:00; Admin Dose 40 MG; Start 10/14/18 at 14:00 Lorazepam (Ativan) 1 mg Q4H PRN GTB AGITATION/ANXIETY Last administered on 10/19/18 17:35; Admin Dose 1 MG; Start 10/14/18 at 13:00 Lisinopril (Zestril) 2.5 mg DAILY PO Last administered on 10/23/18 08:39; Adm in Dose 2.5 MG; Start 10/15/18 at 09:00 Linagliptin (Tradjenta) 5 mg DAILY PO Last administered on 10/23/18 08:40; Admin Dose 5 MG; Start 10/16/18 at 10:30 Carvedilol (Coreg) 6.25 mg BID PO Last administered on 10/23/18 08:45; Admin Dose 6.25 MG; Start 10/17/18 at 21:00 Calcium Carbonate (Ca Carbonate) 1,250 mg TID GTB Last administered on 10/23/18 08:43; Admin Dose 1,250 MG; Start 10/17/18 at 14:00 Fentanyl (Duragesic 50 Mcg/Hr Patch) 1 patch Q72H TRANSDERM Last administered on 10/20/18 23:24; Admin Dose 1 PATCH; Start 10/17/18 at 20:30 Lorazepam (Ativan) 2 mg Q6H GTB Last administered on 10/23/18 08:39; Admin Dose 2 MG; Start 10/20/18 at 15:00 Quetiapine Fumarate (Seroquel) 100 mg BID GTB Last administered on 10/23/18 08:38; Admin Dose 100 MG; Start 10/21/18 at 21:00 Hydromorphone HCl (Dilaudid) 6 mg Q4H PRN PO MODERATE PAIN LEVEL 7-10 Last administered on 10/23/18 03:46; Admin Dose 6 MG; Start 10/21/18 at 22:00 Calcitriol (Rocaltrol) 0.5 mcg TID PO Last administered on 10/23/18 08:39; Admin Dose 0.5 MCG; Start 10/22/18 at 09:00 Magnesium Sulfate 3 gm/Dextrose 106 ml @ 35.333 mls/ hr ONCE ONCE IVPB Last administered on 10/23/18 10:11; Admin Dose 35.333 MLS/HR; Start 10/23/18 at 09:30; Stop 10/23/18 at 12:29 CLAU MORRISSEY NP Oct 23, 2018 11:42
[2018-10-23 14:02] LABS: PNEUMOCYSTIS JIROVECCI DFA NOT DETECTED
--- NOTE | 2018-10-23 14:21 | CONS ---
Assessment/Plan Assessment/Plan Hospital Course (Demo Recall) IMPRESSION: 1. Tachycardia at this time in the setting of fevers and respiratory distress, most consistent with sinus tachycardia likely driving this process. 2. Hypertension with borderline hypotension at this time. -still borderline Hotn 3. Abnormal electrocardiogram at baseline. 4. Chronic respiratory failure, status post tracheostomy.-weaning vent support 5. Dysphagia, status post G-tube. 6. Quadriplegia. 7. Renal insufficiency, on steroids. 8. Chronic obstructive pulmonary disease. 9. Rheumatoid arthritis. 10. Chronic kidney disease. 11. Diabetes mellitus. 12.Adrenal insufficiency 14. cardiomyopathy-EF 35-40% by echo this admit Recc -ICU -Vent support as necessary -Follow volume status closely -Continue abx's and f/u cx data -continue steroids -Continue low dose BB and ACEI and follow HR closely and consider slight increase to BB and follow HR closely -Give additional dose of IVP digoxin Consultation Date/Type/Reason Admit Date/Time Oct 09, 2018 at 12:16 Initial Consult Date 10/09/18 Type of Consult Cardiology Reason for Consultation Cardiomyopathy Requesting Provider: NOLA VIDAL MD Date/Time of Note DATE: 10/23/18 TIME: 14:19 Exam/Review of Systems Vital Signs Vitals Vital Signs Date Temp Pulse Resp B/P (MAP) Pulse Ox O2 O2 Flow FiO2 Time Delivery Rate 10/23/18 99 24 120/48 100 Mechanical 13:00 (72) Ventilator 10/23/18 98.6 12:01 10/23/18 60 11:30 Intake and Output 10/22/18 10/22/18 10/23/18 1515:00 23:00 07:00 IntakeIntake Total 370 ml 380 ml 330 ml OutputOutput Total 420 ml 900 ml 600 ml BalanceBalance -50 ml -520 ml -270 ml Exam Exam Review of Systems: CONSTITUTIONAL: No fevers, chills. PULMONARY: No sob CARDIOVASCULAR: No chest pain/palpitations GASTROINTESTINAL: No nausea/vomiting. GENITOURINARY: No hematuria/dysuria. MUSCULOSKELETAL: No myagias/arthalgias. PSYCHIATRIC: The patient denies depression. NEUROLOGIC: No weakness Constitutional: alert Psych: no complaints Head: normocephalic ENMT: mucosa pink and moist Neck: jvd (9 cm water) Respiratory: diminished breath sounds Cardiovascular: regular rate and rhythm Gastrointestinal: soft, non-tender Musculoskeletal: muscle weakness (generalized) Extremities: edema (trace/B) Neurological: lethargic, other (No focal deficits) Labs Result Diagram: 10/23/18 0432 10/23/18 0432 Results 24hrs Laboratory Tests Test 10/22/18 20:49 10/23/18 01:21 10/23/18 04:32 10/23/18 08:34 Bedside Glucose 157 98 150 White Blood Count 22.8 H Red Blood Count 3.33 L Hemoglobin 9.7 L Hematocrit 30.9 L Mean Corpuscular 92.8 Volume Mean Corpuscular 29.1 Hemoglobin Mean Corpuscular 31.4 L Hemoglobin Concent Red Cell 18.7 H Distribution Width Platelet Count 420 H Mean Platelet Volume 11.0 H Immature 3.700 H Granulocytes % Neutrophils % 90.1 H Lymphocytes % 3.4 L Monocytes % 2.5 Eosinophils % 0.0 Basophils % 0.3 Nucleated Red Blood 0.0 Cells % Immature 0.850 H Granulocytes # Neutrophils # 20.5 H Lymphocytes # 0.8 Monocytes # 0.6 Eosinophils # 0.0 Basophils # 0.1 Nucleated Red Blood 0.0 Cells # Sodium Level 135 Potassium Level 4.9 Chloride Level 92 L Carbon Dioxide Level 34 H Anion Gap 9 Blood Urea Nitrogen 28 H Creatinine 0.39 L Est Glomerular > 60 Filtrat Rate mL/min Glucose Level 123 Calcium Level 7.3 L Phosphorus Level 5.1 H Magnesium Level 1.6 L Total Bilirubin 0.2 Direct Bilirubin 0.00 Indirect Bilirubin 0.2 Aspartate Amino 39 Transf (AST/SGOT) Alanine 33 Aminotransferase (AL T/SGPT) Alkaline Phosphatase 137 H Total Protein 5.3 L Albumin 2.8 L Globulin 2.50 Albumin/Globulin 1.12 Ratio Test 10/23/18 14:03 Bedside Glucose 152 Medications Medications Current Medications Acetaminophen (Tylenol Liquid) 650 mg Q4H PRN GTB MILD PAIN(1-3)OR ELEVATED TEMP Last administered on 10/16/18at 07:52; Admin Dose 650 MG; Start 10/09/18 at 14:00 Al Hydrox/Mg Hydrox/Simethicone (Mag-Al Plus) 15 ml Q6H PRN PO GASTROINTESTINAL UPSET Last administered on 10/17/18at 13:18; Admin Dose 15 ML; Start 10/09/18 at 1 4:00 Eye Lubricant (Artificial Tears Oph) 1 drop Q6H PRN BOTH EYES DRY EYES; Start 10/09/18 at 14:00 Bisacodyl (Dulcolax Supp) 10 mg DAILY PRN [place] CONSTIPATION; Start 10/09/18 at 14:00 Clonidine (Catapres) 0.1 mg DAILY PRN GTB ELEVATED BLOOD PRESSURE; Start 10/09/18 at 14:00 Diltiazem HCl (Cardizem Iv) 5 mg Q4 PRN IV ELEVATED HEART RATE Last administered on 10/18/18 01:09; Admin Dose 5 MG; Start 10/09/18 at 14:00 Diphenhydramine HCl (Benadryl Liquid Cup) 25 mg Q6 PRN GTB ITCHING Last adminis tered on 10/22/18 20:25; Admin Dose 25 MG; Start 10/09/18 at 14:00 Duloxetine HCl (Cymbalta) 30 mg DAILY PO Last administered on 10/23/18 08:40; Admin Dose 30 MG; Start 10/10/18 at 09:00 Epoetin Arpan (Epogen (Esrd)) 10,000 units TuSa@1300 SC Last administered on 10/22/18 13:05; Admin Dose 10,000 UNITS; Start 10/11/18 at 13:00 Gabapentin (Neurontin Liquid) 400 mg Q8 GTB Last administered on 10/23/18 05:00; Admin Dose 400 MG; Start 10/09/18 at 15:30 Hydralazine HCl (Apresoline) 10 mg Q4H PRN IV ELEVATED BLOOD PRESSURE; Start 10/09/18 at 14:00 Hydroxychloroquine Sulfate (Plaquenil) 200 mg BID PO Last administered on 10/23/18 08:39; Admin Dose 200 MG; Start 10/09/18 at 21:00 Diagnostic Test (Pha) (Accu-Chek) 1 ea 02 XX Last administered on 10/23/18 01:23; Admin Dose 1 EA; Start 10/10/18 at 02:00 Insulin Aspart (Novolog Insulin Pen) NOVOLOG *CUSTOM* ALGORITHM Q6H SC Last administered on 10/22/18 20:55; Admin Dose 1 UNIT; Start 10/09/18 at 14:00 Lactobacillus Acidophilus (Florajen3 Capsule) 1 each BID GTB Last administered on 10/23/18 08:40; Admin Dose 1 EACH; Start 10/09/18 at 21:00 Lansoprazole (Prevacid) 30 mg BID@,18 GTB Last administered on 10/23/18 05:00; Admin Dose 30 MG; Start 10/09/18 at 18:00 Levetiracetam (Keppra Liquid) 500 mg BID GTB Last administered on 10/23/18 08:43; Admin Dose 500 MG; Start 10/09/18 at 21:00 Magnesium Oxide (Mag-Ox 400) 400 mg BID GTB Last administered on 10/23/18 08:40; Admin Dose 400 MG; Start 10/09/18 at 21:00 Metoclopramide HCl (Reglan) 10 mg TID IV Last administered on 10/23/18 08:43; Admin Dose 10 MG; Start 10/09/18 at 21:00 Miconazole Nitrate (Miconazole 2% Cr) 1 applic BID TOP Last administered on 10/23/18 08:46; Admin Dose 1 APPLIC; Start 10/09/18 at 21:00 Miconazole Nitrate (Miconazole 2% Cr) 1 applic Q12 PRN TOP rash; Start 10/09/18 at 14:00 Ondansetron HCl (Zofran Inj) 4 mg Q4H PRN IV NAUSEA AND/OR VOMITING Last administered on 10/19/18 16:37; Admin Dose 4 MG; Start 10/09/18 at 14:00 Polyethylene Glycol (Miralax) 17 gm DAILY PRN GTB CONSTIPATION; Start 10/09/18 at 14:00 Senna (Senokot) 2 tab Q8 PRN PO CONSTIPATION; Start 10/09/18 at 14:00 Trimethoprim/ Sulfamethoxazole (Bactrim Susp) 40 ml DAILY GTB Last administered on 10/23/18 08:43; Admin Dose 40 ML; Start 10/10/18 at 09:00 Zolpidem Tartrate (Ambien) 5 mg HS PRN PO INSOMNIA Last administered on 10/21/18 02:34; Admin Dose 5 MG; Start 10/09/18 at 14:00 Miscellaneous Information 1 ea NOTE XX ; Start 10/09/18 at 15:00 Glucose (Glutose) 15 gm Q15M PRN PO DECREASED GLUCOSE; Start 10/09/18 at 15:00 Glucose (Glutose) 22.5 gm Q15M PRN PO DECREASED GLUCOSE; Start 10/09/18 at 15:00 Dextrose (D50w Syringe) 25 ml Q15M PRN IV DECREASED GLUCOSE; Start 10/09/18 at 15:00 Dextrose (D50w Syringe) 50 ml Q15M PRN IV DECREASED GLUCOSE; Start 10/09/18 at 15:00 Glucagon (Glucagen) 1 mg Q15M PRN IM DECREASED GLUCOSE; Start 10/09/18 at 15:00 Glucose (Glutose) 15 gm Q15M PRN BUCCAL DECREASED GLUCOSE; Start 10/09/18 at 15:00 Sodium Chloride 500 ml @ 500 mls/hr Q1H PRN IV BLOOD PRESSURE SUPPORT Last administered on 10/10/18 07:59; Admin Dose 500 MLS/HR; Start 10/09/18 at 19:30 Albuterol (Ventolin Hfa) 4 puff Q6H RESP THERAPY INH Last administered on 10/23/18 13:54; Admin Dose 4 PUFF; Start 10/10/18 at 02:00 Ipratropium [place] (Atrovent Hfa) 4 puff Q6H RESP THERAPY INH Last administered on 10/23/18 13:54; Admin Dose 4 PUFF; Start 10/10/18 at 02:00 Methylprednisolone Sodium Succinate (Solu-Medrol) 40 mg Q8 IV Last administered on 10/23/18 05:00; Admin Dose 40 MG; Start 10/14/18 at 14:00 Lorazepam (Ativan) 1 mg Q4H PRN GTB AGITATION/ANXIETY Last administered on 10/19/18 17:35; Admin Dose 1 MG; Start 10/14/18 at 13:00 Lisinopril (Zestril) 2.5 mg DAILY PO Last administered on 10/23/18 08:39; Admin Dose 2.5 MG; Start 10/15/18 at 09:00 Linagliptin (Tradjenta) 5 mg DAILY PO Last administered on 10/23/18 08:40; Admin Dose 5 MG; Start 10/16/18 at 10:30 Carvedilol (Coreg) 6.25 mg BID PO Last administered on 10/23/18 08:45; Admin Dose 6.25 MG; Start 10/17/18 at 21:00 Calcium Carbonate (Ca Carbonate) 1,250 mg TID GTB Last administered on 10/23/18 08:43; Admin Dose 1,250 MG; Start 10/17/18 at 14:00 Fentanyl (Duragesic 50 Mcg/Hr Patch) 1 patch Q72H TRANSDERM Last administered on 10/20/18 23:24; Admin Dose 1 PATCH; Start 10/17/18 at 20:30 Lorazepam (Ativan) 2 mg Q6H GTB Last administered on 10/23/18 08:39; Admin Dose 2 MG; Start 10/20/18 at 15:00 Quetiapine Fumarate (Seroquel) 100 mg BID GTB Last administered on 10/23/18 08:38; Admin Dose 100 MG; Start 10/21/18 at 21:00 Hydromorphone HCl (Dilaudid) 6 mg Q4H PRN PO MODERATE PAIN LEVEL 7-10 Last administered on 10/23/18 03:46; Admin Dose 6 MG; Start 10/21/18 at 22:00 Calcitriol (Rocaltrol) 0.5 mcg TID PO Last administered on 10/23/18 08:39; Admin Dose 0.5 MCG; Start 10/22/18 at 09:00 BRISA HAQUE Oct 23, 2018 14:21
[2018-10-23] MEDS: FENTAnyl PATCH 50 MCG/HR TRANSDERM SCH (21:32)
[2018-10-24] VITALS (36 sets, daily range): BP systolic 89–138; BP diastolic 55–90; PULSE 88–120; RESP 16–38
[2018-10-24] MEDS: HYDROmorphONE 2 MG TAB PO PRN ×4 (00:15→23:59)
[2018-10-24] MEDS: IPRATROPIUM (HFA) 12.9 GM INHALER INH SCH ×4 (01:06→19:33)
[2018-10-24] MEDS: ALBUTEROL HFA 8 GM INHALER INH SCH ×4 (01:06→19:33)
[2018-10-24] MEDS: ACCU-CHEK XX SCH (01:34)
[2018-10-24] MEDS: INSULIN ASPART [NOVOLOG] 3 ML PEN SC SCH ×4 (02:03→19:59)
[2018-10-24] MEDS: LORAZEPAM 1 MG TAB GTB SCH ×4 (03:32→20:43)
[2018-10-24] MEDS: METHYLPREDNISOLONE 40 MG INJ IV SCH ×3 (05:31→21:33)
[2018-10-24] MEDS: GABAPENTIN (50 MG/ML PO SYG) GTB SCH ×3 (05:32→21:34)
[2018-10-24] MEDS: LANSOPRAZOLE 30 MG CAP GTB SCH ×2 (05:32→17:43)
--- NOTE | 2018-10-24 08:29 | CONS ---
Assessment/Plan Assessment/Plan Assessment/Plan (Daily) Ventilator setting; AC of 20, tidal volume 400, PEEP of 5, 60% FiO2. Chest x-ray from yesterday again showing diffuse ARDS pattern. Assessment recommendations; next 1. Patient with history of VD RF and incomplete quadriplegia admitted for recurrent pneumonia and sepsis with significant interval improvement. 2. History of ARDS due to history of severe bilateral pneumonia. 3. Rheumatoid arthritis. 4. History of hypertension and depression as well as neuropathy. 5. History of HSV esophagitis. 6. Stable seizure disorder. 7. Persistent hypoxemia due to ARDS and element of pulmonary fibrosis. Continue current supportive care. Patient awaiting transfer to medical floor. Consultation Date/Type/Reason Admit Date/Time Oct 09, 2018 at 12:16 Initial Consult Date 10/12/18 Type of Consult Pulmonary/critical care Patient's condition is stable. Remains completely awake and alert. Has remained hemodynamically stable. Patient also has been switched over to volume control ventilation from pressure-controlled mode. General exam; middle-aged male, on ventilator via tracheostomy, awake and alert. Watching television. Currently in no distress. Area Requesting Provider: NOLA VIDAL MD Date/Time of Note DATE: 10/24/18 TIME: 08:26 24 HR Interval Summary Free Text/Dictation Patient's condition is fairly stable. Remains awake and alert. Has remained hemodynamically stable. Patient however cannot tolerate FiO2 less than 60%. General exam; middle-aged male, awake alert, watching TV. Currently in no distress. Appropriately communicative. Exam/Review of Systems Exam Vitals Vital Signs Date Temp Pulse Resp B/P (MAP) Pulse Ox O2 O2 Flow FiO2 Time Delivery Rate 10/24/18 60 06:29 10/24/18 114 23 133/90 89 Mechanical 06:00 (104) Ventilator 10/24/18 98.0 04:00 Intake and Output 10/23/18 10/23/18 10/24/18 1515:00 23:00 07:00 IntakeIntake Total 390.66 ml 370 ml 330 ml OutputOutput Total 490 ml 540 ml 685 ml BalanceBalance -99.34 ml -170 ml -355 ml Exam HEENT exam; supple neck, no JVD. No lymphadenopathy. Midline trachea. No thyromegaly. Tracheostomy placed. Patient is edentulous. No neck masses. Chest exam; diminished breath sounds throughout. S1-S2 audible, no murmurs. Regular rhythm. Abdomen exam; soft, nondistended. No organomegaly. G-tube in place. Bowel sounds audible. Extremity exam; no peripheral edema. [employer] exam; patient is awake responsive appropriately. Able to move both upper extremities and exhibiting adequate strength and movement. Patient exhibiting stable paraplegia. Results Result Diagram: 10/24/18 0445 10/24/18 0445 Results 24hrs Laboratory Tests Test 10/23/18 08:34 10/23/18 14:03 10/23/18 19:49 10/24/18 02:00 Bedside Glucose 150 152 171 166 Test 10/24/18 04:45 White Blood Count 24.1 H Red Blood Count 3.23 L Hemoglobin 9.2 L Hematocrit 30.0 L Mean Corpuscular 92.9 Volume Mean Corpuscular 28.5 L Hemoglobin Mean Corpuscular 30.7 L Hemoglobin Concent Red Cell 18.7 H Distribution Width Platelet Count 414 Mean Platelet Volume 11.1 H Immature 2.800 H Granulocytes % Neutrophils % 87.7 H Lymphocytes % 3.0 L Monocytes % 6.3 Eosinophils % 0.0 Basophils % 0.2 Nucleated Red Blood 0.0 Cells % Immature 0.670 H Granulocytes # Neutrophils # 21.1 H Lymphocytes # 0.7 L Monocytes # 1.5 H Eosinophils # 0.0 Basophils # 0.1 Nucleated Red Blood 0.0 Cells # Sodium Level 135 Potassium Level 4.4 Chloride Level 94 L Carbon Dioxide Level 33 H Anion Gap 8 Blood Urea Nitrogen 30 H Creatinine 0.44 L Est Glomerular > 60 Filtrat Rate mL/min Glucose Level 165 Calcium Level 7.0 L Magnesium Level 1.9 Medications Medication Current Medications Acetaminophen (Tylenol Liquid) 650 mg Q4H PRN GTB MILD PAIN(1-3)OR ELEVATED TEMP Last administered on 10/16/18at 07:52; Admin Dose 650 MG; Start 10/09/18 at 14:00 Al Hydrox/Mg Hydrox/Simethicone (Mag-Al Plus) 15 ml Q6H PRN PO GASTROINTESTINAL UPSET Last administered on 10/17/18 13:18; Admin Dose 15 ML; Start 10/09/18 at 14:00 Eye Lubricant (Artificial Tears Oph) 1 drop Q6H PRN BOTH EYES DRY EYES; Start 10/09/18 at 14:00 Bisacodyl (Dulcolax Supp) 10 mg DAILY PRN [place] CONSTIPATION; Start 10/09/18 at 14:00 Clonidine (Catapres) 0.1 mg DAILY PRN GTB ELEVATED BLOOD PRESSURE; Start 10/09/18 at 14:00 Diltiazem HCl (Cardizem Iv) 5 mg Q4 PRN IV ELEVATED HEART RATE Last administered on 10/18/18 01:09; Admin Dose 5 MG; Start 10/09/18 at 14:00 Diphenhydramine HCl (Benadryl Liquid Cup) 25 mg Q6 PRN GTB ITCHING Last administered on 10/22/18 20:25; Admin Dose 25 MG; Start 10/09/18 at 14:00 Duloxetine HCl (Cymbalta) 30 mg DAILY PO Last administered on 10/23/18 08:40; Admin Dose 30 MG; Start 10/10/18 at 09:00 Epoetin Arpan (Epogen (Esrd)) 10,000 units TuSa@1300 SC Last administered on 10/22/18 13:05; Admin Dose 10,000 UNITS; Start 10/11/18 at 13:00 Gabapentin (Neurontin Liquid) 400 mg Q8 GTB Last administered on 10/24/18 05:32; Admin Dose 400 MG; Start 10/09/18 at 15:30 Hydralazine HCl (Apresoline) 10 mg Q4H PRN IV ELEVATED BLOOD PRESSURE; Start 10/09/18 at 14:00 Hydroxychloroquine Sulfate (Plaquenil) 200 mg BID PO Last administered on 10/23/18 20:28; Admin Dose 200 MG; Start 10/09/18 at 21:00 Diagnostic Test (Pha) (Accu-Chek) 1 ea 02 XX Last administered on 10/24/18 01:34; Admin Dose 1 EA; Start 10/10/18 at 02:00 Insulin Aspart (Novolog Insulin Pen) NOVOLOG *CUSTOM* ALGORITHM Q6H SC Last administered on 10/24/18 02:03; Admin Dose 1 UNIT; Start 10/09/18 at 14:00 Lactobacillus Acidophilus (Florajen3 Capsule) 1 each BID GTB Last administered on 10/23/18 20:28; Admin Dose 1 EACH; Start 10/09/18 at 21:00 Lansoprazole (Prevacid) 30 mg BID@06,18 GTB Last administered on 10/24/18 05:32; Admin Dose 30 MG; Start 10/09/18 at 18:00 Levetiracetam (Keppra Liquid) 500 mg BID GTB Last administered on 10/23/18 20:28; Admin Dose 500 MG; Start 10/09/18 at 21:00 Magnesium Oxide (Mag-Ox 400) 400 mg BID GTB Last administered on 10/23/18 20:28; Admin Dose 400 MG; Start 10/09/18 at 21:00 Metoclopramide HCl (Reglan) 10 mg TID IV Last administered on 10/23/18 20:28; Admin Dose 10 MG; Start 10/09/18 at 21:00 Miconazole Nitrate (Miconazole 2% Cr) 1 applic BID TOP Last administered on 10/23/18 20:30; Admin Dose 1 APPLIC; Start 10/09/18 at 21:00 Miconazole Nitrate (Miconazole 2% Cr) 1 applic Q12 PRN TOP rash; Start 10/09/18 at 14:00 Ondansetron HCl (Zofran Inj) 4 mg Q4H PRN IV NAUSEA AND/OR VOMITING Last administered on 10/19/18 16:37; Admin Dose 4 MG; Start 10/09/18 at 14:00 Polyethylene Glycol (Miralax) 17 gm DAILY PRN GTB CONSTIPATION; Start 10/09/18 at 14:00 Senna (Senokot) 2 tab Q8 PRN PO CONSTIPATION; Start 10/09/18 at 14:00 Trimethoprim/ Sulfamethoxazole (Bactrim Susp) 40 ml DAILY GTB Last administered on 10/23/18 08:43; Admin Dose 40 ML; Start 10/10/18 at 09:00 Zolpidem Tartrate (Ambien) 5 mg HS PRN PO INSOMNIA Last administered on 10/21/18 02:34; Admin Dose 5 MG; Start 10/09/18 at 14:00 Miscellaneous Information 1 ea NOTE XX ; Start 10/09/18 at 15:00 Glucose (Glutose) 15 gm Q15M PRN PO DECREASED GLUCOSE; Start 10/09/18 at 15:00 Glucose (Glutose) 22.5 gm Q15M PRN PO DECREASED GLUCOSE; Start 10/09/18 at 15:00 Dextrose (D50w Syringe) 25 ml Q15M PRN IV DECREASED GLUCOSE; Start 10/09/18 at 15:00 Dextrose (D50w Syringe) 50 ml Q15M PRN IV DECREASED GLUCOSE; Start 10/09/18 at 15:00 Glucagon (Glucagen) 1 mg Q15M PRN IM DECREASED GLUCOSE; Start 10/09/18 at 15:00 Glucose (Glutose) 15 gm Q15M PRN BUCCAL DECREASED GLUCOSE; Start 10/09/18 at 15:00 Sodium Chloride 500 ml @ 500 mls/hr Q1H PRN IV BLOOD PRESSURE SUPPORT Last administered on 10/10/18 07:59; Admin Dose 500 MLS/HR; Start 10/09/18 at 19:30 Albuterol (Ventolin Hfa) 4 puff Q6H RESP THERAPY INH Last administered on 10/24/18 08:07; Admin Dose 4 PUFF; Start 10/10/18 at 02:00 Ipratropium [place] (Atrovent Hfa) 4 puff Q6H RESP THERAPY INH Last administered on 10/24/18 08:07; Admin Dose 4 PUFF; Start 10/10/18 at 02:00 Methylprednisolone Sodium Succinate (Solu-Medrol) 40 mg Q8 IV Last administered on 10/24/18 05:31; Admin Dose 40 MG; Start 10/14/18 at 14:00 Lorazepam (Ativan) 1 mg Q4H PRN GTB AGITATION/ANXIETY Last administered on 10/19/18 17:35; Admin Dose 1 MG; Start 10/14/18 at 13:00 Lisinopril (Zestril) 2.5 mg DAILY PO Last administered on 10/23/18 08:39; Admin Dose 2.5 MG; Start 10/15/18 at 09:00 Linagliptin (Tradjenta) 5 mg DAILY PO Last administered on 10/23/18 08:40; Admin Dose 5 MG; Start 10/16/18 at 10:30 Calcium Carbonate (Ca Carbonate) 1,250 mg TID GTB Last administered on 10/23/18 20:29; Admin Dose 1,250 MG; Start 10/17/18 at 14:00 Fentanyl (Duragesic 50 Mcg/Hr Patch) 1 patch Q72H TRANSDERM Last administered on 10/23/18 21:32; Admin Dose 1 PATCH; Start 10/17/18 at 20:30 Lorazepam (Ativan) 2 mg Q6H GTB Last administered on 10/24/18 03:32; Admin Dose 2 MG; Start 10/20/18 at 15:00 Quetiapine Fumarate (Seroquel) 100 mg BID GTB Last administered on 10/23/18 20:28; Admin Dose 100 MG; Start 10/21/18 at 21:00 Hydromorphone HCl (Dilaudid) 6 mg Q4H PRN PO MODERATE PAIN LEVEL 7-10 Last administered on 10/24/18 00:15; Admin Dose 6 MG; Start 10/21/18 at 22:00 Calcitriol (Rocaltrol) 0.5 mcg TID PO Last administered on 10/23/18 20:28; Admin Dose 0.5 MCG; Start 10/22/18 at 09:00 Carvedilol (Coreg) 12.5 mg BID PO Last administered on 10/23/18 20:29; Admin Dose 12.5 MG; Start 10/23/18 at 21:00 PILAR BERGER Oct 24, 2018 08:29
[2018-10-24] MEDS: CA CARBONATE (250 MG/ML) 5ML CUP GTB SCH ×4 (08:30→20:42)
[2018-10-24] MEDS: LEVETIRACETAM (100 MG/ML) 5ML CUP GTB SCH ×2 (08:31→20:42)
[2018-10-24] MEDS: CALCITRIOL 0.25 MCG CAP PO SCH ×3 (08:31→20:43)
[2018-10-24] MEDS: DULOXETINE 30 MG CAP DR PO SCH (08:31)
[2018-10-24] MEDS: LINAGLIPTIN 5 MG TABLET PO SCH (08:33)
[2018-10-24] MEDS: LISINOPRIL 5 MG TAB PO SCH (08:33)
[2018-10-24] MEDS: HYDROXYCHLOROQUINE 200 MG TAB PO SCH ×2 (08:33→20:43)
[2018-10-24] MEDS: MICONAZOLE 2% 30 GM CR TOP SCH ×2 (08:34→20:44)
[2018-10-24] MEDS: BALSAM PERU/CASTOR OIL 60 GM TUBE TOP SCH ×2 (08:34→20:44)
[2018-10-24] MEDS: METOCLOPRAMIDE 10 MG INJ IV SCH ×3 (08:41→20:42)
[2018-10-24] MEDS: MAGNESIUM OXIDE 400 MG TAB GTB SCH ×2 (08:41→20:43)
[2018-10-24] MEDS: QUETIAPINE 100 MG TAB GTB SCH ×2 (08:41→20:43)
[2018-10-24] MEDS: L ACIDOPHIL/B LACTIS/B LONGUM CAPSULE GTB SCH ×2 (08:41→20:46)
[2018-10-24] MEDS: TRIMETHOPRIM/SULFAMETHOX (PO SYG) GTB SCH (08:41)
--- NOTE | 2018-10-24 09:27 | PN ---
DATE: 10/24/2018 SUBJECTIVE: The patient remains in serious, but stable condition. No acute events noted overnight. OBJECTIVE: VITAL SIGNS: Blood pressure is 133/90, respirations 23, pulse 114, temperature 98.0. HEENT: Head is normocephalic. NECK: Supple. HEART: Regular rate. LUNGS: Show diminished breath sounds at the base. ABDOMEN: Soft, nontender to palpation without rebound or guarding. EXTREMITIES: Negative for clubbing, cyanosis, no edema. DERMATOLOGIC: No rashes. MUSCULOSKELETAL: No joint effusion. NEUROLOGIC: No change in exam. MEDICATIONS: Reviewed. LABORATORY DATA: Shows a white count of 24.1, hemoglobin 9.2, platelet count is 411. Sodium 135, po tassium 4.4, chloride 94, BUN 30, creatinine 0.44, calcium level is 7.0. IMAGING STUDIES: Reviewed. ASSESSMENT AND PLAN: 1. Nonoliguric acute kidney injury, etiology is secondary to hemodynamics. Renal function is improv ed. Continue to monitor. 2. Hypomagnesemia. Continue to monitor and replete as needed. 3. Mineral bone disorder, monitor calcium and phosphorus levels. 4. Ventilatory-dependent respiratory failure. Vent settings and ABG was reviewed. Continue to dale tor. 5. Adrenal insufficiency. Continue Cortef. 6. Anemia. Continue to monitor hemoglobin and hematocrit levels. 7. Dysphagia. Continue tube feeding. 8. Sepsis secondary to pneumonia. The patient is completing antibiotic course. 9. Hypertension. Continue to monitor. 10. Tachyarrhythmia. Continue to monitor. 11. Seizure disorder. Continue current treatment plan. 12. Anxiety disorder. Dictated By: UNA HONG/EFREN Conf#: [id number] DID#: [id number] CC: NOLA VIDAL MD; CAMELIA VALENTINE MD;*EndCC*
--- NOTE | 2018-10-24 10:45 | CONS ---
Assessment/Plan Assessment/Plan Hospital Course (Demo Recall) # sepsis, respiratory - recurrent sepsis on 10/08/2018 due to aspiration pneumonia, HCAP, improved - possible aspiration pneumonia, recurrent pneumonia due to citrobacter, improved - acute on chronic hypoxic and hypercarbic respiratory failure - persistent leukocytosis likely due to steroid margination - h/o tracheostomy on 08/26/2018 - h/o "Increased mild left apical pneumothorax" per CXR on 09/19/2018; no pneumothorax mentioned on subsequent CXR - h/o pneumomediastinum - h/o VAT on 08/11/2018 - h/o asthma/COPD exacerbation - h/o acute tracheobronchitis - h/o MAC infection but CT chest did not demonstrate features suggestive of this per chart review - On this admission AFB smear x3 have been negative (10/21/18 0600, 10/21/18 1530, and 10/22/18 0040), pneumocystis jiroveci 10/18/18 not detected. - h/o HCAP due to citrobacter, based on resp culture on 09/13/2018 - h/o aspergillus growing out of resp culture per (pulm note by Dr. 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 x21 days from 08/26/2018 - h/o EGD, esophageal biopsy showed esophageal squamous mucosa showing acute inflammation, granulation tissue, and ulceration consistent with ulcerative esophagitis, rare multinucleated cells with morphology suggestive of vial cytopathic changes, No cardiac mucosa, intestinal metaplasia, dysplasia, or malignancy defined - GERD - PUD # renal/ - Hypokalemia, recurrent - CKD 2 - BPH # cardiac - tachycardia, persistent - ACD - HTN - HLD # endo - T2DM - Hgb A1c 7.2% - secondary adrenal insufficiency; steroid dependent - Hypoparathyroidism - Hypercalcemia - Pamidronate was ordered # neuro - toxic metabolic encephalopathy - Cervical myopathy - Severe cervical spinal cord stenosis with cord compression from C3-C5, s/p laminectomy in ~03/2018 - Chronic pain syndrome - Functional quadriplegia - Seizure d/o # other chronic conditions - RA with chronic steroid dependence - Immunocompromised status - Fibromyalgia - DDD - H/o multiple rib fracture - Pt completed: meropenem (09/25/2018-10/02/2018), vancomycin (09/25/18-09/28/18), pip/tazo (10/09/2018-10/15/2018) Recommendations: - Pending: AFB culture x3 (AFB smear x3 have resulted negative) particular to r/o mycobacterium avium intracellulaire, quantiferon TB gold, coccidioides serology - Continue Bactrim for pneumocystis PPX - Continue to monitor off other systemic antibiotic Management d/w nsg and with Dr. Davila. Thank you Total critical care time spent: 35 minutes Consultation Date/Type/Reason Admit Date/Time Oct 09, 2018 at 12:16 Initial Consult Date 10/12/18 Type of Consult ID Requesting Provider: NOLA VIDAL MD Date/Time of Note DATE: 10/24/18 TIME: 10:41 24 HR Interval Summary Free Text/Dictation Per d/w nsg, the patient has remained afebrile, still having bouts of anxiety and remains on 60% fio2. Unable to review ROS currently as patient is sleeping soundly. Exam/Review of Systems Exam Vitals Vital Signs Date Temp Pulse Resp B/P (MAP) Pulse Ox O2 O2 Flow FiO2 Time Delivery Rate 10/24/18 92 20 95/60 (72) 100 Mechanical 10:00 Ventilator Trach Collar 10/24/18 60 09:41 10/24/18 99.0 09:00 Intake and Output 10/23/18 10/23/18 10/24/18 1414:59 22:59 06:59 IntakeIntake Total 390.66 ml 370 ml 370 ml OutputOutput Total 590 ml 560 ml 715 ml BalanceBalance -199.34 ml -190 ml -345 ml Allergies Coded Allergies No Known Allergy (Unverified10/12/18) Exam Constitutional: non-verbal, frail, other (sleeping soundly and peacefully currently) Head: normocephalic, atraumatic Eyes: nl conjunctiva, nl lids, nl sclera ENMT: nl external ears & nose, nl nasal mucosa & septum, mucosa pink and moist (no thrush [mouth is open]) Neck: supple, non-tender, other (trach site is midline, site c/d/i, on vent, fio2 60%) Respiratory: normal air movement, diminished breath sounds Cardiovascular: regular rate and rhythm, nl pulses, other (RUE PICC site is c/d/i) Gastrointestinal: soft, non-tender, other (GT site is c/d/i) Musculoskeletal: nl extremities to inspection Extremities: normal pulses Neurological: lethargic, other (eye tracks, follows simple commands, able to mouth words, currently sleeping) Skin: nl turgor, other (stage II coccygeal ulcer); No rash or lesions Results Result Diagram: 10/24/185 10/24/18 0445 Results 24hrs Laboratory Tests Test 10/23/18 14:03 10/23/18 19:49 10/24/18 02:00 10/24/18 04:45 Bedside Glucose 152 171 166 White Blood Count 24.1 H Red Blood Count 3.23 L Hemoglobin 9.2 L Hematocrit 30.0 L Mean Corpuscular 92.9 Volume Mean Corpuscular 28.5 L Hemoglobin Mean Corpuscular 30.7 L Hemoglobin Concent Red Cell 18.7 H Distribution Width Platelet Count 414 Mean Platelet Volume 11.1 H Immature 2.800 H Granulocytes % Neutrophils % 87.7 H Lymphocytes % 3.0 L Monocytes % 6.3 Eosinophils % 0.0 Basophils % 0.2 Nucleated Red Blood 0.0 Cells % Immature 0.670 H Granulocytes # Neutrophils # 21.1 H Lymphocytes # 0.7 L Monocytes # 1.5 H Eosinophils # 0.0 Basophils # 0.1 Nucleated Red Blood 0.0 Cells # Sodium Level 135 Potassium Level 4.4 Chloride Level 94 L Carbon Dioxide Level 33 H Anion Gap 8 Blood Urea Nitrogen 30 H Creatinine 0.44 L Est Glomerular > 60 Filtrat Rate mL/min Glucose Level 165 Calcium Level 7.0 L Magnesium Level 1.9 Test 10/24/18 08:29 Bedside Glucose 136 Imaging Imaging CXR 10/23/18 IMPRESSION: No significant change. Extensive bilateral perihilar and lower lobe increased interstitial changes. Mild cardiomegaly. Medications Medication Current Medications Acetaminophen (Tylenol Liquid) 650 mg Q4H PRN GTB MILD PAIN(1-3)OR ELEVATED TEMP Last administered on 10/16/18at 07:52; Admin Dose 650 MG; Start 2/24/19 at 14:00 Al Hydrox/Mg Hydrox/Simethicone (Mag-Al Plus) 15 ml Q6H PRN PO GASTROINTESTINAL UPSET Last administered on 10/17/18 13:18; Admin Dose 15 ML; Start 10/09/18 at 14:00 Eye Lubricant (Artificial Tears Oph) 1 drop Q6H PRN BOTH EYES DRY EYES; Start 10/09/18 at 14:00 Bisacodyl (Dulcolax Supp) 10 mg DAILY PRN [place] CONSTIPATION; Start 10/09/18 at 14:00 Clonidine (Catapres) 0.1 mg DAILY PRN GTB ELEVATED BLOOD PRESSURE; Start 10/09/18 at 14:00 Diltiazem HCl (Cardizem Iv) 5 mg Q4 PRN IV ELEVATED HEART RATE Last administered on 10/18/18 01:09; Admin Dose 5 MG; Start 10/09/18 at 14:00 Diphenhydramine HCl (Benadryl Liquid Cup) 25 mg Q6 PRN GTB ITCHING Last administered on 10/22/18 20:25; Admin Dose 25 MG; Start 10/09/18 at 14:00 Duloxetine HCl (Cymbalta) 30 mg DAILY PO Last administered on 10/24/18 08:31; Admin Dose 30 MG; Start 10/10/18 at 09:00 Epoetin Arpan (Epogen (Esrd)) 10,000 units TuSa@1300 SC Last administered on 10/22/18 13:05; Admin Dose 10,000 UNITS; Start 10/11/18 at 13:00 Gabapentin (Neurontin Liquid) 400 mg Q8 GTB Last administered on 10/24/18 05:32; Admin Dose 400 MG; Start 10/09/18 at 15:30 Hydralazine HCl (Apresoline) 10 mg Q4H PRN IV ELEVATED BLOOD PRESSURE; Start 10/09/18 at 14:00 Hydroxychloroquine Sulfate (Plaquenil) 200 mg BID PO Last administered on 10/24/18 08:33; Admin Dose 200 MG; Start 10/09/18 at 21:00 Diagnostic Test (Pha) (Accu-Chek) 1 ea 02 XX Last administered on 10/24/18 01:34; Admin Dose 1 EA; Start 10/10/18 at 02:00 Insulin Aspart (Novolog Insulin Pen) NOVOLOG *CUSTOM* ALGORITHM Q6H SC Last administered on 10/24/18 02:03; Admin Dose 1 UNIT; Start 10/09/18 at 14:00 Lactobacillus Acidophilus (Florajen3 Capsule) 1 each BID GTB Last administered on 10/24/18 08:41; Admin Dose 1 EACH; Start 10/09/18 at 21:00 Lansoprazole (Prevacid) 30 mg BID@,18 GTB Last administered on 10/24/18 05:32; Admin Dose 30 MG; Start 10/09/18 at 18:00 Levetiracetam (Keppra Liquid) 500 mg BID GTB Last administered on 10/24/18 08:31; Admin Dose 500 MG; Start 10/09/18 at 21:00 Magnesium Oxide (Mag-Ox 400) 400 mg BID GTB Last administered on 10/24/18 08:41; Admin Dose 400 MG; Start 10/09/18 at 21:00 Metoclopramide HCl (Reglan) 10 mg TID IV Last administered on 10/24/18 08:41; Admin Dose 10 MG; Start 10/09/18 at 21:00 Miconazole Nitrate (Miconazole 2% Cr) 1 applic BID TOP Last administered on 10/24/18 08:34; Admin Dose 1 APPLIC; Start 10/09/18 at 21:00 Miconazole Nitrate (Miconazole 2% Cr) 1 applic Q12 PRN TOP rash; Start 10/09/18 at 14:00 Ondansetron HCl (Zofran Inj) 4 mg Q4H PRN IV NAUSEA AND/OR VOMITING Last administered on 10/19/18 16:37; Admin Dose 4 MG; Start 10/09/18 at 14:00 Polyethylene Glycol (Miralax) 17 gm DAILY PRN GTB CONSTIPATION; Start 10/09/18 at 14:00 Senna (Senokot) 2 tab Q8 PRN PO CONSTIPATION; Start 10/09/18 at 14:00 Trimethoprim/ Sulfamethoxazole (Bactrim Susp) 40 ml DAILY GTB Last administered on 10/24/18 08:41; Admin Dose 40 ML; Start 10/10/18 at 09:00 Zolpidem Tartrate (Ambien) 5 mg HS PRN PO INSOMNIA Last administered on 10/21/18 02:34; Admin Dose 5 MG; Start 10/09/18 at 14:00 Miscellaneous Information 1 ea NOTE XX ; Start 10/09/18 at 15:00 Glucose (Glutose) 15 gm Q15M PRN PO DECREASED GLUCOSE; Start 10/09/18 at 15:00 Glucose (Glutose) 22.5 gm Q15M PRN PO DECREASED GLUCOSE; Start 10/09/18 at 15:00 Dextrose (D50w Syringe) 25 ml Q15M PRN IV DECREASED GLUCOSE; Start 10/09/18 at 15:00 Dextrose (D50w Syringe) 50 ml Q15M PRN IV DECREASED GLUCOSE; Start 10/09/18 at 15:00 Glucagon (Glucagen) 1 mg Q15M PRN IM DECREASED GLUCOSE; Start 10/09/18 at 15:00 Glucose (Glutose) 15 gm Q15M PRN BUCCAL DECREASED GLUCOSE; Start 10/09/18 at 15:00 Sodium Chloride 500 ml @ 500 mls/hr Q1H PRN IV BLOOD PRESSURE SUPPORT Last administered on 10/10/18 07:59; Admin Dose 500 MLS/HR; Start 10/09/18 at 19:30 Albuterol (Ventolin Hfa) 4 puff Q6H RESP THERAPY INH Last administered on 10/24/18 08:07; Admin Dose 4 PUFF; Start 10/10/18 at 02:00 Ipratropium [place] (Atrovent Hfa) 4 puff Q6H RESP THERAPY INH Last a dministered on 10/24/18 08:07; Admin Dose 4 PUFF; Start 10/10/18 at 02:00 Methylprednisolone Sodium Succinate (Solu-Medrol) 40 mg Q8 IV Last administered on 10/24/18 05:31; Admin Dose 40 MG; Start 10/14/18 at 14:00 Lorazepam (Ativan) 1 mg Q4H PRN GTB AGITATION/ANXIETY Last administered on 10/19/18 17:35; Admin Dose 1 MG; Start 10/14/18 at 13:00 Lisinopril (Zestril) 2.5 mg DAILY PO Last administered on 10/24/18 08:33; Admin Dose 2.5 MG; Start 10/15/18 at 09:00 Linagliptin (Tradjenta) 5 mg DAILY PO Last administered on 10/24/18 08:33; Admin Dose 5 MG; Start 10/16/18 at 10:30 Calcium Carbonate (Ca Carbonate) 1,250 mg TID GTB Last administered on 10/24/18 08:30; Admin Dose 1,250 MG; Start 10/17/18 at 14:00 Fentanyl (Duragesic 50 Mcg/Hr Patch) 1 patch Q72H TRANSDERM Last administered on 10/23/18 21:32; Admin Dose 1 PATCH; Start 10/17/18 at 20:30 Lorazepam (Ativan) 2 mg Q6H GTB Last administered on 10/24/18 08:32; Admin Dose 2 MG; Start 10/20/18 at 15:00 Quetiapine Fumarate (Seroquel) 100 mg BID GTB Last administered on 10/24/18 08:41; Admin Dose 100 MG; Start 10/21/18 at 21:00 Hydromorphone HCl (Dilaudid) 6 mg Q4H PRN PO MODERATE PAIN LEVEL 7-10 Last administered on 10/24/18 08:33; Admin Dose 6 MG; Start 10/21/18 at 22:00 Calcitriol (Rocaltrol) 0.5 mcg TID PO Last administered on 10/24/18 08:31; Admin Dose 0.5 MCG; Start 10/22/18 at 09:00 Carvedilol (Coreg) 12.5 mg BID PO Last administered on 10/24/18 08:32; Admin Dose 12.5 MG; Start 10/23/18 at 21:00 STEVE MOSCOSO NP Oct 24, 2018 10:45
--- NOTE | 2018-10-24 11:35 | CONS ---
Assessment/Plan Assessment/Plan Hospital Course (Demo Recall) IMPRESSION: 1. Tachycardia at this time in the setting of fevers and respiratory distress, most consistent with sinus tachycardia likely driving this process. 2. Hypertension with borderline hypotension at this time. -still borderline Hotn 3. Abnormal electrocardiogram at baseline. 4. Chronic respiratory failure, status post tracheostomy.-weaning vent support 5. Dysphagia, status post G-tube. 6. Quadriplegia. 7. Renal insufficiency, on steroids. 8. Chronic obstructive pulmonary disease. 9. Rheumatoid arthritis. 10. Chronic kidney disease. 11. Diabetes mellitus. 12.Adrenal insufficiency 14. cardiomyopathy-EF 35-40% by echo this admit Recc -ICU -Vent support as necessary -Follow volume status closely -Continue abx's and f/u cx data -continue steroids -Continue low dose BB and ACEI and follow HR closely -s/p dose of IVP digoxin Consultation Date/Type/Reason Admit Date/Time Oct 09, 2018 at 12:16 Initial Consult Date 10/09/18 Type of Consult Cardiology Reason for Consultation Cardiomyopathy Requesting Provider: NOLA VIDAL MD Date/Time of Note DATE: 10/24/18 TIME: 11:32 Exam/Review of Systems Vital Signs Vitals Vital Signs Date Temp Pulse Resp B/P (MAP) Pulse Ox O2 O2 Flow FiO2 Time Delivery Rate 10/24/18 92 20 95/60 (72) 100 Mechanical 10:00 Ventilator Trach Collar 10/24/18 60 09:41 10/24/18 99.0 09:00 Intake and Output 10/23/18 10/23/18 10/24/18 1414:59 22:59 06:59 IntakeIntake Total 390.66 ml 370 ml 370 ml OutputOutput Total 590 ml 560 ml 715 ml BalanceBalance -199.34 ml -190 ml -345 ml Exam Exam Review of Systems: CONSTITUTIONAL: No fevers, chills. PULMONARY: No sob CARDIOVASCULAR: No chest pain/palpitations GASTROINTESTINAL: No nausea/vomiting. GENITOURINARY: No hematuria/dysuria. MUSCULOSKELETAL: No myagias/arthalgias. PSYCHIATRIC: The patient denies depression. NEUROLOGIC: No weakness Constitutional: alert Psych: no complaints Head: normocephalic ENMT: mucosa pink and moist Neck: supple, jvd (9 cm water) Respiratory: diminished breath sounds (at bases/B) Cardiovascular: regular rate and rhythm Gastrointestinal: soft, non-tender Musculoskeletal: muscle tone (normal) Extremities: edema (none) Labs Result Diagram: 10/24/185 10/24/18 0445 Results 24hrs Laboratory Tests Test 10/23/18 14:03 10/23/18 19:49 10/24/18 02:00 10/24/18 04:45 Bedside Glucose 152 171 166 White Blood Count 24.1 H Red Blood Count 3.23 L Hemoglobin 9.2 L Hematocrit 30.0 L Mean Corpuscular 92.9 Volume Mean Corpuscular 28.5 L Hemoglobin Mean Corpuscular 30.7 L Hemoglobin Concent Red Cell 18.7 H Distribution Width Platelet Count 414 Mean Platelet Volume 11.1 H Immature 2.800 H Granulocytes % Neutrophils % 87.7 H Lymphocytes % 3.0 L Monocytes % 6.3 Eosinophils % 0.0 Basophils % 0.2 Nucleated Red Blood 0.0 Cells % Immature 0.670 H Granulocytes # Neutrophils # 21.1 H Lymphocytes # 0.7 L Monocytes # 1.5 H Eosinophils # 0.0 Basophils # 0.1 Nucleated Red Blood 0.0 Cells # Sodium Level 135 Potassium Level 4.4 Chloride Level 94 L Carbon Dioxide Level 33 H Anion Gap 8 Blood Urea Nitrogen 30 H Creatinine 0.44 L Est Glomerular > 60 Filtrat Rate mL/min Glucose Level 165 Calcium Level 7.0 L Magnesium Level 1.9 Test 10/24/18 08:29 Bedside Glucose 136 Medications Medications Current Medications Acetaminophen (Tylenol Liquid) 650 mg Q4H PRN GTB MILD PAIN(1-3)OR ELEVATED TEMP Last administered on 10/16/18at 07:52; Admin Dose 650 MG; Start 10/09/18 at 14:00 Al Hydrox/Mg Hydrox/Simethicone (Mag-Al Plus) 15 ml Q6H PRN PO GASTROINTESTINAL UPSET Last administered on 10/17/18at 13:18; Admin Dose 15 ML; Start 10/09/18 at 14:00 Eye Lubricant (Artificial Tears Oph) 1 drop Q6H PRN BOTH EYES DRY EYES; Start 10/09/18 at 14:00 Bisacodyl (Dulcolax Supp) 10 mg DAILY PRN [place] CONSTIPATION; Start 10/09/18 at 14:00 Clonidine (Catapres) 0.1 mg DAILY PRN GTB ELEVATED BLOOD PRESSURE; Start 10/09/18 at 14:00 Diltiazem HCl (Cardizem Iv) 5 mg Q4 PRN IV ELEVATED HEART RATE Last administered on 10/18/18 01:09; Admin Dose 5 MG; Start 10/09/18 at 14:00 Diphenhydramine HCl (Benadryl Liquid Cup) 25 mg Q6 PRN GTB ITCHING Last administered on 10/22/18 20:25; Admin Dose 25 MG; Start 10/09/18 at 14:00 Duloxetine HCl (Cymbalta) 30 mg DAILY PO Last administered on 10/24/18 08:31; Admin Dose 30 MG; Start 10/10/18 at 09:00 Epoetin Arpan (Epogen (Esrd)) 10,000 units TuSa@1300 SC Last administered on 10/22/18 13:05; Admin Dose 10,000 UNITS; Start 10/11/18 at 13:00 Gabapentin (Neurontin Liquid) 400 mg Q8 GTB Last administered on 10/24/18 05:32; Admin Dose 400 MG; Start 10/09/18 at 15:30 Hydralazine HCl (Apresoline) 10 mg Q4H PRN IV ELEVATED BLOOD PRESSURE; Start 10/09/18 at 14:00 Hydroxychloroquine Sulfate (Plaquenil) 200 mg BID PO Last administered on 10/24/18 08:33; Admin Dose 200 MG; Start 10/09/18 at 21:00 Diagnostic Test (Pha) (Accu-Chek) 1 ea 02 XX Last administered on 10/24/18 01:34; Admin Dose 1 EA; Start 10/10/18 at 02:00 Insulin Aspart (Novolog Insulin Pen) NOVOLOG *CUSTOM* ALGORITHM Q6H SC Last administered on 10/24/18 02:03; Admin Dose 1 UNIT; Start 10/09/18 at 14:00 Lactobacillus Acidophilus (Florajen3 Capsule) 1 each BID GTB Last administered on 10/24/18 08:41; Admin Dose 1 EACH; Start 10/09/18 at 21:00 Lansoprazole (Prevacid) 30 mg BID@06,18 GTB Last administered on 10/24/18 05:32; Admin Dose 30 MG; Start 10/09/18 at 18:00 Levetiracetam (Keppra Liquid) 500 mg BID GTB Last administered on 10/24/18 08:31; Admin Dose 500 MG; Start 10/09/18 at 21:00 Magnesium Oxide (Mag-Ox 400) 400 mg BID GTB Last administered on 10/24/18 08:41; Admin Dose 400 MG; Start 10/09/18 at 21:00 Metoclopramide HCl (Reglan) 10 mg TID IV Last administered on 10/24/18 08:41; Admin Dose 10 MG; Start 10/09/18 at 21:00 Miconazole Nitrate (Miconazole 2% Cr) 1 applic BID TOP Last administered on 10/24/18 08:34; Admin Dose 1 APPLIC; Start 10/09/18 at 21:00 Miconazole Nitrate (Miconazole 2% Cr) 1 applic Q12 PRN TOP rash; Start 10/09/18 at 14:00 Ondansetron HCl (Zofran Inj) 4 mg Q4H PRN IV NAUSEA AND/OR VOMITING Last administered on 10/19/18 16:37; Admin Dose 4 MG; Start 10/09/18 at 14:00 Polyethylene Glycol (Miralax) 17 gm DAILY PRN GTB CONSTIPATION; Start 10/09/18 at 14:00 Senna (Senokot) 2 tab Q8 PRN PO CONSTIPATION; Start 10/09/18 at 14:00 Trimethoprim/ Sulfamethoxazole (Bactrim Susp) 40 ml DAILY GTB Last administered on 10/24/18 08:41; Admin Dose 40 ML; Start 10/10/18 at 09:00 Zolpidem Tartrate (Ambien) 5 mg HS PRN PO INSOMNIA Last administered on 10/21/18 02:34; Admin Dose 5 MG; Start 10/09/18 at 14:00 Miscellaneous Information 1 ea NOTE XX ; Start 10/09/18 at 15:00 Glucose (Glutose) 15 gm Q15M PRN PO DECREASED GLUCOSE; Start 10/09/18 at 15:00 Glucose (Glutose) 22.5 gm Q15M PRN PO DECREASED GLUCOSE; Start 10/09/18 at 15:00 Dextrose (D50w Syringe) 25 ml Q15M PRN IV DECREASED GLUCOSE; Start 10/09/18 at 15:00 Dextrose (D50w Syringe) 50 ml Q15M PRN IV DECREASED GLUCOSE; Start 10/09/18 at 15:00 Glucagon (Glucagen) 1 mg Q15M PRN IM DECREASED GLUCOSE; Start 10/09/18 at 15:00 Glucose (Glutose) 15 gm Q15M PRN BUCCAL DECREASED GLUCOSE; Start 10/09/18 at 15:00 Sodium Chloride 500 ml @ 500 mls/hr Q1H PRN IV BLOOD PRESSURE SUPPORT Last administered on 10/10/18 07:59; Admin Dose 500 MLS/HR; Start 10/09/18 at 19:30 Albuterol (Ventolin Hfa) 4 puff Q6H RESP THERAPY INH Last administered on 10/24/18 08:07; Admin Dose 4 PUFF; Start 10/10/18 at 02:00 Ipratropium [place] (Atrovent Hfa) 4 puff Q6H RESP THERAPY INH Last adm inistered on 10/24/18 08:07; Admin Dose 4 PUFF; Start 10/10/18 at 02:00 Methylprednisolone Sodium Succinate (Solu-Medrol) 40 mg Q8 IV Last administered on 10/24/18 05:31; Admin Dose 40 MG; Start 10/14/18 at 14:00 Lorazepam (Ativan) 1 mg Q4H PRN GTB AGITATION/ANXIETY Last administered on 10/19/18 17:35; Admin Dose 1 MG; Start 10/14/18 at 13:00 Lisinopril (Zestril) 2.5 mg DAILY PO Last administered on 10/24/18 08:33; Admin Dose 2.5 MG; Start 10/15/18 at 09:00 Linagliptin (Tradjenta) 5 mg DAILY PO Last administered on 10/24/18 08:33; Admin Dose 5 MG; Start 10/16/18 at 10:30 Calcium Carbonate (Ca Carbonate) 1,250 mg TID GTB Last administered on 10/24/18 08:30; Admin Dose 1,250 MG; Start 10/17/18 at 14:00 Fentanyl (Duragesic 50 Mcg/Hr Patch) 1 patch Q72H TRANSDERM Last administered on 10/23/18 21:32; Admin Dose 1 PATCH; Start 10/17/18 at 20:30 Lorazepam (Ativan) 2 mg Q6H GTB Last administered on 10/24/18 08:32; Admin Dose 2 MG; Start 10/20/18 at 15:00 Quetiapine Fumarate (Seroquel) 100 mg BID GTB Last administered on 10/24/18 08:41; Admin Dose 100 MG; Start 10/21/18 at 21:00 Hydromorphone HCl (Dilaudid) 6 mg Q4H PRN PO MODERATE PAIN LEVEL 7-10 Last administered on 10/24/18 08:33; Admin Dose 6 MG; Start 10/21/18 at 22:00 Calcitriol (Rocaltrol) 0.5 mcg TID PO Last administered on 10/24/18 08:31; Admin Dose 0.5 MCG; Start 10/22/18 at 09:00 Carvedilol (Coreg) 12.5 mg BID PO Last administered on 10/24/18 08:32; Admin Dose 12.5 MG; Start 10/23/18 at 21:00 BRISA HAQUE Oct 24, 2018 11:35
--- NOTE | 2018-10-24 14:27 | PN ---
Date/Time of Note Date/Time of Note DATE: 10/24/18 TIME: 14:26 Assessment/Plan VTE Prophylaxis Risk score (from Ns)>0 risk: 7 SCD applied (from [facility]): Yes Pharmacological prophylaxis: NA/contraindicated Pharm contraindication: bleeding Lines/Catheters IV C[facility]ter Type (from [facility] Mid Line Urinary Cath still in place: No Assessment/Plan Hospital Course Patient is lethargic but easily arousable continued on Ativan [id number] for agitation currently patient tolerates titration of oxygen to 55% continue ventilatory support. Assessment/Plan - Acute on chronic hypoxemic respiratory failure with underlying ARDS, continue ventilatory support. Dr. Villa is following in pulmonology consultation. - Acute kidney injury, continue to monitor BUN and creatinine. G-tube feeding changed to renal source. Dr. Hobson is following in nephrology consultation. -Tachycardia, Dr. Joshi is following in cardiology consultation. - Cardiomyopathy with EF 35-40% - Rheumatoid arthritis with steroid dependence. The patient's pain seems to be controlled with the current dose of fentanyl. - Dysphagia. Continue GT feeding. - Anemia of chronic disease. - Hypoparathyroidism with recent hypercalcemia, status post pamidronate. - Hypertension. - Functional quadriplegia - Hx of severe cervical spinal cord stenosis with cord compression from C3-C5, s/p laminectomy. - History of fibromyalgia rheumatica - Hx of VAT on 08/11/2018 Critical care time spent 30 minutes. Further recommendations based on clinical course. Plan of care discussed with Dr. Rosales Result Diagram: 10/24/18 0445 10/24/18 0445 Results 24hrs Laboratory Tests Test 10/23/18 19:49 10/24/18 02:00 10/24/18 04:45 10/24/18 08:29 Bedside Glucose 171 166 136 White Blood Count 24.1 H Red Blood Count 3.23 L Hemoglobin 9.2 L Hematocrit 30.0 L Mean Corpuscular 92.9 Volume Mean Corpuscular 28.5 L Hemoglobin Mean Corpuscular 30.7 L Hemoglobin Concent Red Cell 18.7 H Distribution Width Platelet Count 414 Mean Platelet Volume 11.1 H Immature 2.800 H Granulocytes % Neutrophils % 87.7 H Lymphocytes % 3.0 L Monocytes % 6.3 Eosinophils % 0.0 Basophils % 0.2 Nucleated Red Blood 0.0 Cells % Immature 0.670 H Granulocytes # Neutrophils # 21.1 H Lymphocytes # 0.7 L Monocytes # 1.5 H Eosinophils # 0.0 Basophils # 0.1 Nucleated Red Blood 0.0 Cells # Sodium Level 135 Potassium Level 4.4 Chloride Level 94 L Carbon Dioxide Level 33 H Anion Gap 8 Blood Urea Nitrogen 30 H Creatinine 0.44 L Est Glomerular > 60 Filtrat Rate mL/min Glucose Level 165 Calcium Level 7.0 L Magnesium Level 1.9 Test 10/24/18 14:21 Bedside Glucose 186 Exam/Review of Systems Exam Vitals Vital Signs Date Temp Pulse Resp B/P (MAP) Pulse Ox O2 O2 Flow FiO2 Time Delivery Rate 10/24/18 89 26 98 55 13:25 10/24/18 98.9 89/55 (66) Mechanical 12:00 Ventilator Trach Collar Intake and Output 10/23/18 10/23/18 10/24/18 1414:59 22:59 06:59 IntakeIntake Total 390.66 ml 370 ml 370 ml OutputOutput Total 590 ml 560 ml 715 ml BalanceBalance -199.34 ml -190 ml -345 ml Exam Constitutional: alert, oriented, frail Neck: other (trach) Respiratory: diminished breath sounds Cardiovascular: regular rate and rhythm Gastrointestinal: soft, non-tender, other Neurological: nl mental status Results Results 24hrs Laboratory Tests Test 10/23/18 19:49 10/24/18 02:00 10/24/18 04:45 10/24/18 08:29 Bedside Glucose 171 166 136 White Blood Count 24.1 H Red Blood Count 3.23 L Hemoglobin 9.2 L Hematocrit 30.0 L Mean Corpuscular 92.9 Volume Mean Corpuscular 28.5 L Hemoglobin Mean Corpuscular 30.7 L Hemoglobin Concent Red Cell 18.7 H Distribution Width Platelet Count 414 Mean Platelet Volume 11.1 H Immature 2.800 H Granulocytes % Neutrophils % 87.7 H Lymphocytes % 3.0 L Monocytes % 6.3 Eosinophils % 0.0 Basophils % 0.2 Nucleated Red Blood 0.0 Cells % Immature 0.670 H Granulocytes # Neutrophils # 21.1 H Lymphocytes # 0.7 L Monocytes # 1.5 H Eosinophils # 0.0 Basophils # 0.1 Nucleated Red Blood 0.0 Cells # Sodium Level 135 Potassium Level 4.4 Chloride Level 94 L Carbon Dioxide Level 33 H Anion Gap 8 Blood Urea Nitrogen 30 H Creatinine 0.44 L Est Glomerular > 60 Filtrat Rate mL/min Glucose Level 165 Calcium Level 7.0 L Magnesium Level 1.9 Test 10/24/18 14:21 Bedside Glucose 186 Medications Medication Current Medications Acetaminophen (Tylenol Liquid) 650 mg Q4H PRN GTB MILD PAIN(1-3)OR ELEVATED TEM P Last administered on 10/16/18 07:52; Admin Dose 650 MG; Start 10/09/18 at 14:00 Al Hydrox/Mg Hydrox/Simethicone (Mag-Al Plus) 15 ml Q6H PRN PO GASTROINTESTINAL UPSET Last administered on 10/17/18 13:18; Admin Dose 15 ML; Start 10/09/18 at 14:00 Eye Lubricant (Artificial Tears Oph) 1 drop Q6H PRN BOTH EYES DRY EYES; Start 10/09/18 at 14:00 Bisacodyl (Dulcolax Supp) 10 mg DAILY PRN [place] CONSTIPATION; Start 10/09/18 at 14:00 Clonidine (Catapres) 0.1 mg DAILY PRN GTB ELEVATED BLOOD PRESSURE; Start 10/09/18 at 14:00 Diltiazem HCl (Cardizem Iv) 5 mg Q4 PRN IV ELEVATED HEART RATE Last administer ed on 10/18/18 01:09; Admin Dose 5 MG; Start 10/09/18 at 14:00 Diphenhydramine HCl (Benadryl Liquid Cup) 25 mg Q6 PRN GTB ITCHING Last administered on 10/22/18 20:25; Admin Dose 25 MG; Start 10/09/18 at 14:00 Duloxetine HCl (Cymbalta) 30 mg DAILY PO Last administered on 10/24/18 08:31; Admin Dose 30 MG; Start 10/10/18 at 09:00 Epoetin Arpan (Epogen (Esrd)) 10,000 units TuSa@1300 SC Last administered on 10/22/18 13:05; Admin Dose 10,000 UNITS; Start 10/11/18 at 13:00 Gabapentin (Neurontin Liquid) 400 mg Q8 GTB Last administered on 10/24/18 13:56; Admin Dose 400 MG; Start 10/09/18 at 15:30 Hydralazine HCl (Apresoline) 10 mg Q4H PRN IV ELEVATED BLOOD PRESSURE; Start 10/09/18 at 14:00 Hydroxychloroquine Sulfate (Plaquenil) 200 mg BID PO Last administered on 10/24/18 08:33; Admin Dose 200 MG; Start 10/09/18 at 21:00 Diagnostic Test (Pha) (Accu-Chek) 1 ea 02 XX Last administered on 10/24/18 01:34; Admin Dose 1 EA; Start 10/10/18 at 02:00 Insulin Aspart (Novolog Insulin Pen) NOVOLOG *CUSTOM* ALGORITHM Q6H SC Last administered on 10/24/18 02:03; Admin Dose 1 UNIT; Start 10/09/18 at 14:00 Lactobacillus Acidophilus (Florajen3 Capsule) 1 each BID GTB Last administered on 10/24/18 08:41; Admin Dose 1 EACH; Start 10/09/18 at 21:00 Lansoprazole (Prevacid) 30 mg BID@06,18 GTB Last administered on 10/24/18 05:32; Admin Dose 30 MG; Start 10/09/18 at 18:00 Levetiracetam (Keppra Liquid) 500 mg BID GTB Last administered on 10/24/18 08:31; Admin Dose 500 MG; Start 10/09/18 at 21:00 Magnesium Oxide (Mag-Ox 400) 400 mg BID GTB Last administered on 10/24/18 08:41; Admin Dose 400 MG; Start 10/09/18 at 21:00 Metoclopramide HCl (Reglan) 10 mg TID IV Last administered on 10/24/18 13:55; Admin Dose 10 MG; Start 10/09/18 at 21:00 Miconazole Nitrate (Miconazole 2% Cr) 1 applic BID TOP Last administered on 10/24/18 08:34; Admin Dose 1 APPLIC; Start 10/09/18 at 21:00 Miconazole Nitrate (Miconazole 2% Cr) 1 applic Q12 PRN TOP rash; Start 10/09/18 at 14:00 Ondansetron HCl (Zofran Inj) 4 mg Q4H PRN IV NAUSEA AND/OR VOMITING Last administered on 10/19/18 16:37; Admin Dose 4 MG; Start 10/09/18 at 14:00 Polyethylene Glycol (Miralax) 17 gm DAILY PRN GTB CONSTIPATION; Start 10/09/18 at 14:00 Senna (Senokot) 2 tab Q8 PRN PO CONSTIPATION; Start 10/09/18 at 14:00 Trimethoprim/ Sulfamethoxazole (Bactrim Susp) 40 ml DAILY GTB Last administered on 10/24/18at 08:41; Admin Dose 40 ML; Start 10/10/18 at 09:00 Zolpidem Tartrate (Ambien) 5 mg HS PRN PO INSOMNIA Last administered on 10/21/18at 02:34; Admin Dose 5 MG; Start 10/09/18 at 14:00 Miscellaneous Information 1 ea NOTE XX ; Start 10/09/18 at 15:00 Glucose (Glutose) 15 gm Q15M PRN PO DECREASED GLUCOSE; Start 10/09/18 at 15:00 Glucose (Glutose) 22.5 gm Q15M PRN PO DECREASED GLUCOSE; Start 10/09/18 at 15:00 Dextrose (D50w Syringe) 25 ml Q15M PRN IV DECREASED GLUCOSE; Start 10/09/18 at 15:00 Dextrose (D50w Syringe) 50 ml Q15M PRN IV DECREASED GLUCOSE; Start 10/09/18 at 15:00 Glucagon (Glucagen) 1 mg Q15M PRN IM DECREASED GLUCOSE; Start 10/09/18 at 15:00 Glucose (Glutose) 15 gm Q15M PRN BUCCAL DECREASED GLUCOSE; Start 10/09/18 at 15:00 Sodium Chloride 500 ml @ 500 mls/hr Q1H PRN IV BLOOD PRESSURE SUPPORT Last administered on 10/10/18at 07:59; Admin Dose 500 MLS/HR; Start 10/09/18 at 19:30 Albuterol (Ventolin Hfa) 4 puff Q6H RESP THERAPY INH Last administered on 10/24/18 13:24; Admin Dose 4 PUFF; Start 10/10/18 at 02:00 Ipratropium [place] (Atrovent Hfa) 4 puff Q6H RESP THERAPY INH Last administered on 10/24/18 13:25; Admin Dose 4 PUFF; Start 10/10/18 at 02:00 Methylprednisolone Sodium Succinate (Solu-Medrol) 40 mg Q8 IV Last administered on 10/24/18at 13:55; Admin Dose 40 MG; Start 10/14/18 at 14:00 Lorazepam (Ativan) 1 mg Q4H PRN GTB AGITATION/ANXIETY Last administered on 10/19/18 17:35; Admin Dose 1 MG; Start 10/14/18 at 13:00 Lisinopril (Zestril) 2.5 mg DAILY PO Last administered on 10/24/18 08:33; Admin Dose 2.5 MG; Start 10/15/18 at 09:00 Linagliptin (Tradjenta) 5 mg DAILY PO Last administered on 10/24/18 08:33; Admin Dose 5 MG; Start 10/16/18 at 10:30 Fentanyl (Duragesic 50 Mcg/Hr Patch) 1 patch Q72H TRANSDERM Last administered on 10/23/18 21:32; Admin Dose 1 PATCH; Start 10/17/18 at 20:30 Lorazepam (Ativan) 2 mg Q6H GTB Last administered on 10/24/18 08:32; Admin Dose 2 MG; Start 10/20/18 at 15:00 Quetiapine Fumarate (Seroquel) 100 mg BID GTB Last administered on 10/24/18 08:41; Admin Dose 100 MG; Start 10/21/18 at 21:00 Hydromorphone HCl (Dilaudid) 6 mg Q4H PRN PO MODERATE PAIN LEVEL 7-10 Last administered on 10/24/18 08:33; Admin Dose 6 MG; Start 10/21/18 at 22:00 Calcitriol (Rocaltrol) 0.5 mcg TID PO Last administered on 10/24/18 13:55; Admin Dose 0.5 MCG; Start 10/22/18 at 09:00 Carvedilol (Coreg) 12.5 mg BID PO Last administered on 10/24/18 08:32; Admin Dose 12.5 MG; Start 10/23/18 at 21:00 Calcium Carbonate (Ca Carbonate) 1,250 mg QID GTB Last administered on 10/24/18 13:55; Admin Dose 1,250 MG; Start 10/24/18 at 13:00 CAROLYN LANGLEY Oct 24, 2018 14:27
--- NOTE | 2018-10-24 18:17 | CONS ---
Assessment/Plan Assessment/Plan Assessment/Plan (Daily) Interval History- No acute events overnight, tolerating tube feeds well, no residue, on airborne precautions, being worked up for TB 1. Respiratory failure secondary to pneumonia versus interstitial pneumonitis from rheumatoid arthritis versus mild aspiration. -on Bactrim 2. Severe rheumatoid arthritis. 3. Quadriplegia. 4. Adrenal insufficiency. 5. Gastroparesis. -Reglan, denies nausea 6. Hypothyroidism. 7. Chronic pain syndrome. 8. Hypertension. 9. Diarrhea -VRE in stool -FOB neg 10. Leukocytosis secondary to steroids 11.ARDS Swallow eval: Impression: Oropharyngeal dysphagia associated with reduced oropharyngeal strength/coordination, delayed timing of swallowing and reduced coordination of breath with swallow safety impacting swallow safety. Pt is not safe to initiate p.o intake and is at high risk of aspiration. Recommendation: 1. Initiate dysphagia therapy 3-5x per week for 1-2 weeks 2. Keep NPO+PEG tube feeds for primary means of nutrition/hydration/medication delivery 3. Anticipate need for in-line PMV evaluation one respiratory status improves and is stabilized 4. ongoing assessment and BOT and oropharyngeal strengthening exercises, aswell as pt/family education and counseling 5. Anticipate need for MBSS prior to initiation of p.o intake PLAN: ID recommendations Continue present care Nothing by mouth per swallow eval results Continue with tube feeds check residuals q 4 hours Continue Reglan. Aspiration precautions. So far there is no evidence of aspiration. 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 Consultation Date/Type/Reason Admit Date/Time Oct 09, 2018 at 12:16 Initial Consult Date 10/12/18 Requesting Provider: NOLA VIDAL MD Date/Time of Note DATE: 10/24/18 TIME: 18:15 24 HR Interval Summary Subjective hx not possible: pt critical Exam/Review of Systems Exam Vitals Vital Signs Date Temp Pulse Resp B/P (MAP) Pulse Ox O2 O2 Flow FiO2 Time Delivery Rate 10/24/18 103 24 93 50 17:14 10/24/18 100/60 Mechanical 17:00 (73) Ventilator Trach Collar 10/24/18 99.0 16:00 Intake and Output 10/23/18 10/23/18 10/24/18 1515:00 23:00 07:00 IntakeIntake Total 390.66 ml 370 ml 420 ml OutputOutput Total 490 ml 540 ml 685 ml BalanceBalance -99.34 ml -170 ml -265 ml Constitutional: alert, well developed Eyes: nl conjunctiva Respiratory: diminished breath sounds Results Result Diagram: 10/24/18 0445 10/24/18 0445 Results 24hrs Laboratory Tests Test 10/23/18 19:49 10/24/18 02:00 10/24/18 04:45 10/24/18 08:29 Bedside Glucose 171 166 136 White Blood Count 24.1 H Red Blood Count 3.23 L Hemoglobin 9.2 L Hematocrit 30.0 L Mean Corpuscular 92.9 Volume Mean Corpuscular 28.5 L Hemoglobin Mean Corpuscular 30.7 L Hemoglobin Concent Red Cell 18.7 H Distribution Width Platelet Count 414 Mean Platelet Volume 11.1 H Immature 2.800 H Granulocytes % Neutrophils % 87.7 H Lymphocytes % 3.0 L Monocytes % 6.3 Eosinophils % 0.0 Basophils % 0.2 Nucleated Red Blood 0.0 Cells % Immature 0.670 H Granulocytes # Neutrophils # 21.1 H Lymphocytes # 0.7 L Monocytes # 1.5 H Eosinophils # 0.0 Basophils # 0.1 Nucleated Red Blood 0.0 Cells # Sodium Level 135 Potassium Level 4.4 Chloride Level 94 L Carbon Dioxide Level 33 H Anion Gap 8 Blood Urea Nitrogen 30 H Creatinine 0.44 L Est Glomerular > 60 Filtrat Rate mL/min Glucose Level 165 Calcium Level 7.0 L Magnesium Level 1.9 Test 10/24/18 14:21 Bedside Glucose 186 Medications Medication Current Medications Acetaminophen (Tylenol Liquid) 650 mg Q4H PRN GTB MILD PAIN(1-3)OR ELEVATED TEMP Last administered on 10/16/18at 07:52; Admin Dose 650 MG; Start 10/09/18 at 14:00 Al Hydrox/Mg Hydrox/Simethicone (Mag-Al Plus) 15 ml Q6H PRN PO GASTROINTESTINAL UPSET Last administered on 10/17/18at 13:18; Admin Dose 15 ML; Start 10/09/18 at 14:00 Eye Lubricant (Artificial Tears Oph) 1 drop Q6H PRN BOTH EYES DRY EYES; Start 10/09/18 at 14:00 Bisacodyl (Dulcolax Supp) 10 mg DAILY PRN [place] CONSTIPATION; Start 10/09/18 at 14:00 Clonidine (Catapres) 0.1 mg DAILY PRN GTB ELEVATED BLOOD PRESSURE; Start 10/09/18 at 14:00 Diltiazem HCl (Cardizem Iv) 5 mg Q4 PRN IV ELEVATED HEART RATE Last administered on 10/18/18 01:09; Admin Dose 5 MG; Start 10/09/18 at 14:00 Diphenhydramine HCl (Benadryl Liquid Cup) 25 mg Q6 PRN GTB ITCHING Last administered on 10/22/18 20:25; Admin Dose 25 MG; Start 10/09/18 at 14:00 Duloxetine HCl (Cymbalta) 30 mg DAILY PO Last administered on 10/24/18 08:31; Admin Dose 30 MG; Start 10/10/18 at 09:00 Epoetin Arpan (Epogen (Esrd)) 10,000 units TuSa@1300 SC Last administered on 10/22/18 13:05; Admin Dose 10,000 UNITS; Start 10/11/18 at 13:00 Gabapentin (Neurontin Liquid) 400 mg Q8 GTB Last administered on 10/24/18 13:56; Admin Dose 400 MG; Start 10/09/18 at 15:30 Hydralazine HCl (Apresoline) 10 mg Q4H PRN IV ELEVATED BLOOD PRESSURE; Start 10/09/18 at 14:00 Hydroxychloroquine Sulfate (Plaquenil) 200 mg BID PO Last administered on 10/24/18 08:33; Admin Dose 200 MG; Start 10/09/18 at 21:00 Diagnostic Test (Pha) (Accu-Chek) 1 ea 02 XX Last administered on 10/24/18 01:34; Admin Dose 1 EA; Start 10/10/18 at 02:00 Insulin Aspart (Novolog Insulin Pen) NOVOLOG *CUSTOM* ALGORITHM Q6H SC Last administered on 10/24/18 14:23; Admin Dose 1 UNIT; Start 10/09/18 at 14:00 Lactobacillus Acidophilus (Florajen3 Capsule) 1 each BID GTB Last administered on 10/24/18 08:41; Admin Dose 1 EACH; Start 10/09/18 at 21:00 Lansoprazole (Prevacid) 30 mg BID@06,18 GTB Last administered on 10/24/18 17:43; Admin Dose 30 MG; Start 10/09/18 at 18:00 Levetiracetam (Keppra Liquid) 500 mg BID GTB Last administered on 10/24/18 08:31; Admin Dose 500 MG; Start 10/09/18 at 21:00 Magnesium Oxide (Mag-Ox 400) 400 mg BID GTB Last administered on 10/24/18 08:41; Admin Dose 400 MG; Start 10/09/18 at 21:00 Metoclopramide HCl (Reglan) 10 mg TID IV Last administered on 10/24/18 13:55; Admin Dose 10 MG; Start 10/09/18 at 21:00 Miconazole Nitrate (Miconazole 2% Cr) 1 applic BID TOP Last administered on 10/24/18 08:34; Admin Dose 1 APPLIC; Start 10/09/18 at 21:00 Miconazole Nitrate (Miconazole 2% Cr) 1 applic Q12 PRN TOP rash; Start 10/09/18 at 14:00 Ondansetron HCl (Zofran Inj) 4 mg Q4H PRN IV NAUSEA AND/OR VOMITING Last administered on 10/19/18 16:37; Admin Dose 4 MG; Start 10/09/18 at 14:00 Polyethylene Glycol (Miralax) 17 gm DAILY PRN GTB CONSTIPATION; Start 10/09/18 at 14:00 Senna (Senokot) 2 tab Q8 PRN PO CONSTIPATION; Start 10/09/18 at 14:00 Trimethoprim/ Sulfamethoxazole (Bactrim Susp) 40 ml DAILY GTB Last administered on 10/24/18 08:41; Admin Dose 40 ML; Start 10/10/18 at 09:00 Zolpidem Tartrate (Ambien) 5 mg HS PRN PO INSOMNIA Last administered on 10/21/18 02:34; Admin Dose 5 MG; Start 10/09/18 at 14:00 Miscellaneous Information 1 ea NOTE XX ; Start 10/09/18 at 15:00 Glucose (Glutose) 15 gm Q15M PRN PO DECREASED GLUCOSE; Start 10/09/18 at 15:00 Glucose (Glutose) 22.5 gm Q15M PRN PO DECREASED GLUCOSE; Start 10/09/18 at 15:00 Dextrose (D50w Syringe) 25 ml Q15M PRN IV DECREASED GLUCOSE; Start 10/09/18 at 15:00 Dextrose (D50w Syringe) 50 ml Q15M PRN IV DECREASED GLUCOSE; Start 10/09/18 at 15:00 Glucagon (Glucagen) 1 mg Q15M PRN IM DECREASED GLUCOSE; Start 10/09/18 at 15:00 Glucose (Glutose) 15 gm Q15M PRN BUCCAL DECREASED GLUCOSE; Start 10/09/18 at 15:00 Sodium Chloride 500 ml @ 500 mls/hr Q1H PRN IV BLOOD PRESSURE SUPPORT Last administered on 10/10/18 07:59; Admin Dose 500 MLS/HR; Start 10/09/18 at 19:30 Albuterol (Ventolin Hfa) 4 puff Q6H RESP THERAPY INH Last administered on 10/24/18 13:24; Admin Dose 4 PUFF; Start 10/10/18 at 02:00 Ipratropium [place] (Atrovent Hfa) 4 puff Q6H RESP THERAPY INH Last administered on 10/24/18 13:25; Admin Dose 4 PUFF; Start 10/10/18 at 02:00 Methylprednisolone Sodium Succinate (Solu-Medrol) 40 mg Q8 IV Last administered on 10/24/18 13:55; Admin Dose 40 MG; Start 10/14/18 at 14:00 Lorazepam (Ativan) 1 mg Q4H PRN GTB AGITATION/ANXIETY Last administered on 10/19/18 17:35; Admin Dose 1 MG; Start 10/14/18 at 13:00 Lisinopril (Zestril) 2.5 mg DAILY PO Last administered on 10/24/18 08:33; Admi n Dose 2.5 MG; Start 10/15/18 at 09:00 Linagliptin (Tradjenta) 5 mg DAILY PO Last administered on 10/24/18 08:33; Admin Dose 5 MG; Start 10/16/18 at 10:30 Fentanyl (Duragesic 50 Mcg/Hr Patch) 1 patch Q72H TRANSDERM Last administered on 10/23/18 21:32; Admin Dose 1 PATCH; Start 10/17/18 at 20:30 Lorazepam (Ativan) 2 mg Q6H GTB Last administered on 10/24/18 14:24; Admin Dose 2 MG; Start 10/20/18 at 15:00 Quetiapine Fumarate (Seroquel) 100 mg BID GTB Last administered on 10/24/18 08:41; Admin Dose 100 MG; Start 10/21/18 at 21:00 Hydromorphone HCl (Dilaudid) 6 mg Q4H PRN PO MODERATE PAIN LEVEL 7-10 Last administered on 10/24/18at 17:44; Admin Dose 6 MG; Start 10/21/18 at 22:00 Calcitriol (Rocaltrol) 0.5 mcg TID PO Last administered on 10/24/18at 13:55; Admin Dose 0.5 MCG; Start 10/22/18 at 09:00 Carvedilol (Coreg) 12.5 mg BID PO Last administered on 10/24/18 08:32; Admin Dose 12.5 MG; Start 10/23/18 at 21:00 Calcium Carbonate (Ca Carbonate) 1,250 mg QID GTB Last administered on 10/24/18 at 17:43; Admin Dose 1,250 MG; Start 10/24/18 at 13:00 BHAVIK RUBIO MD Oct 24, 2018 18:17
[2018-10-25] VITALS (35 sets, daily range): BP systolic 91–137; BP diastolic 55–101; PULSE 90–117; RESP 17–32
[2018-10-25] MEDS: ACCU-CHEK XX SCH (01:46)
[2018-10-25] MEDS: INSULIN ASPART [NOVOLOG] 3 ML PEN SC SCH ×4 (01:53→21:41)
[2018-10-25] MEDS: IPRATROPIUM (HFA) 12.9 GM INHALER INH SCH ×4 (02:20→19:35)
[2018-10-25] MEDS: ALBUTEROL HFA 8 GM INHALER INH SCH ×4 (02:20→19:35)
[2018-10-25] MEDS: LORAZEPAM 1 MG TAB GTB SCH ×4 (03:46→21:01)
[2018-10-25] MEDS: GABAPENTIN (50 MG/ML PO SYG) GTB SCH ×3 (05:08→21:01)
[2018-10-25] MEDS: LANSOPRAZOLE 30 MG CAP GTB SCH ×2 (05:08→18:16)
[2018-10-25] MEDS: METHYLPREDNISOLONE 40 MG INJ IV SCH ×3 (05:08→21:02)
--- NOTE | 2018-10-25 08:23 | CONS ---
Consult Date/Type/Reason Admit Date/Time Oct 09, 2018 at 12:16 Initial Consult Date 10/09/18 Type of Consultation: Pulm/CC Requesting Provider: NOLA VIDAL MD Date/Time of Note DATE: 10/25/18 TIME: 08:22 Subjective NO acute events - pt stable - no CP - in good fluid status now. Still very anxious, sinus tach noted. ROS: No fever, no chills, no nausea, no vomiting, no diarrhea/constipation No recent weight changes No chest pain, no PND, no orthopnea - chronic SOB No dizziness, blurred vision No thirst, no heat or cold intolerance Objective Vitals Vital Signs Date Temp Pulse Resp B/P (MAP) Pulse Ox O2 O2 Flow FiO2 Time Delivery Rate 10/25/18 113 21 123/82 93 Mechanical 07:00 (96) Ventilator 10/25/18 65 05:25 10/25/18 98.2 04:00 Intake and Output 10/24/18 10/24/18 10/25/18 1515:00 23:00 07:00 IntakeIntake Total 370 ml 370 ml 420 ml OutputOutput Total 150 ml 780 ml 845 ml BalanceBalance 220 ml -410 ml -425 ml Exam General: WN/WD/NAD, AOx 2-3 alert HEENT: Unicetric/atraumatic/EOMI (follow commands) NECK: trach Lymph: no lymphadenopathy HEART: regular with no S3, II/ systolic murmur at apex LUNGS: Coarse sounds ABD: soft, NT, ND, +BS : Intact Neuro: non focal SKIN: chronic changes EXT: trace edema Results/Medications Result Diagram: 10/24/18 0445 10/25/18 0500 Results 24 hrs Laboratory Tests Test 10/24/18 08:29 10/24/18 14:21 10/24/18 19:56 10/25/18 05:00 Bedside Glucose 136 186 166 Sodium Level 133 L Potassium Level 4.3 Chloride Level 92 L Carbon Dioxide Level 34 H Anion Gap 7 Blood Urea Nitrogen 33 H Creatinine 0.44 L Est Glomerular > 60 Filtrat Rate mL/min Glucose Level 172 Calcium Level 7.0 L Total Bilirubin 0.1 L Direct Bilirubin 0.00 Indirect Bilirubin 0.1 Aspartate Amino 24 Transf (AST/SGOT) Alanine 36 Aminotransferase (AL T/SGPT) Alkaline Phosphatase 118 Total Protein 5.3 L Albumin 2.8 L Globulin 2.50 Albumin/Globulin 1.12 Ratio Test 10/25/18 08:06 Bedside Glucose 144 Medications Current Medications Acetaminophen (Tylenol Liquid) 650 mg Q4H PRN GTB MILD PAIN(1-3)OR ELEVATED TEMP Last administered on 10/16/18 07:52; Admin Dose 650 MG; Start 10/09/18 at 14:00 Al Hydrox/Mg Hydrox/Simethicone (Mag-Al Plus) 15 ml Q6H PRN PO GASTROINTESTINAL UPSET Last administered on 10/17/18 13:18; Admin Dose 15 ML; Start 10/09/18 at 14:00 Eye Lubricant (Artificial Tears Oph) 1 drop Q6H PRN BOTH EYES DRY EYES; Start 10/09/18 at 14:00 Bisacodyl (Dulcolax Supp) 10 mg DAILY PRN [place] CONSTIPATION; Start 10/09/18 at 14:00 Clonidine (Catapres) 0.1 mg DAILY PRN GTB ELEVATED BLOOD PRESSURE; Start 10/09/18 at 14:00 Diltiazem HCl (Cardizem Iv) 5 mg Q4 PRN IV ELEVATED HEART RATE Last administered on 10/18/18 01:09; Admin Dose 5 MG; Start 10/09/18 at 14:00 Diphenhydramine HCl (Benadryl Liquid Cup) 25 mg Q6 PRN GTB ITCHING Last administered on 10/22/18 20:25; Admin Dose 25 MG; Start 10/09/18 at 14:00 Duloxetine HCl (Cymbalta) 30 mg DAILY PO Last administered on 10/24/18at 08:31; Admin Dose 30 MG; Start 10/10/18 at 09:00 Epoetin Arpan (Epogen (Esrd)) 10,000 units TuSa@1300 SC Last administered on 10/22/18 13:05; Admin Dose 10,000 UNITS; Start 10/11/18 at 13:00 Gabapentin (Neurontin Liquid) 400 mg Q8 GTB Last administered on 10/25/18 05:08; Admin Dose 400 MG; Start 10/09/18 at 15:30 Hydralazine HCl (Apresoline) 10 mg Q4H PRN IV ELEVATED BLOOD PRESSURE; Start 10/09/18 at 14:00 Hydroxychloroquine Sulfate (Plaquenil) 200 mg BID PO Last administered on 10/24/18 20:43; Admin Dose 200 MG; Start 10/09/18 at 21:00 Diagnostic Test (Pha) (Accu-Chek) 1 ea 02 XX Last administered on 10/25/18 01:46; Admin Dose 1 EA; Start 10/10/18 at 02:00 Insulin Aspart (Novolog Insulin Pen) NOVOLOG *CUSTOM* ALGORITHM Q6H SC Last administered on 10/25/18 01:53; Admin Dose 2 UNIT; Start 10/09/18 at 14:00 Lactobacillus Acidophilus (Florajen3 Capsule) 1 each BID GTB Last administered on 10/24/18 20:46; Admin Dose 1 EACH; Start 10/09/18 at 21:00 Lansoprazole (Prevacid) 30 mg BID@06,18 GTB Last administered on 10/25/18 05:08; Admin Dose 30 MG; Start 10/09/18 at 18:00 Levetiracetam (Keppra Liquid) 500 mg BID GTB Last administered on 10/24/18 20:42; Admin Dose 500 MG; Start 10/09/18 at 21:00 Magnesium Oxide (Mag-Ox 400) 400 mg BID GTB Last administered on 10/24/18 20:43; Admin Dose 400 MG; Start 10/09/18 at 21:00 Metoclopramide HCl (Reglan) 10 mg TID IV Last administered on 10/24/18 20:42; Admin Dose 10 MG; Start 10/09/18 at 21:00 Miconazole Nitrate (Miconazole 2% Cr) 1 applic BID TOP Last administered on 10/24/18 20:44; Admin Dose 1 APPLIC; Start 10/09/18 at 21:00 Miconazole Nitrate (Miconazole 2% Cr) 1 applic Q12 PRN TOP rash; Start 10/09/18 at 14:00 Ondansetron HCl (Zofran Inj) 4 mg Q4H PRN IV NAUSEA AND/OR VOMITING Last administered on 10/19/18 16:37; Admin Dose 4 MG; Start 10/09/18 at 14:00 Polyethylene Glycol (Miralax) 17 gm DAILY PRN GTB CONSTIPATION; Start 10/09/18 at 14:00 Senna (Senokot) 2 tab Q8 PRN PO CONSTIPATION; Start 10/09/18 at 14:00 Trimethoprim/ Sulfamethoxazole (Bactrim Susp) 40 ml DAILY GTB Last administered on 10/24/18at 08:41; Admin Dose 40 ML; Start 10/10/18 at 09:00 Zolpidem Tartrate (Ambien) 5 mg HS PRN PO INSOMNIA Last administered on 10/21/18at 02:34; Admin Dose 5 MG; Start 10/09/18 at 14:00 Miscellaneous Information 1 ea NOTE XX ; Start 10/09/18 at 15:00 Glucose (Glutose) 15 gm Q15M PRN PO DECREASED GLUCOSE; Start 10/09/18 at 15:00 Glucose (Glutose) 22.5 gm Q15M PRN PO DECREASED GLUCOSE; Start 10/09/18 at 15:00 Dextrose (D50w Syringe) 25 ml Q15M PRN IV DECREASED GLUCOSE; Start 10/09/18 at 15:00 Dextrose (D50w Syringe) 50 ml Q15M PRN IV DECREASED GLUCOSE; Start 10/09/18 at 15:00 Glucagon (Glucagen) 1 mg Q15M PRN IM DECREASED GLUCOSE; Start 10/09/18 at 15:00 Glucose (Glutose) 15 gm Q15M PRN BUCCAL DECREASED GLUCOSE; Start 10/09/18 at 15:00 Sodium Chloride 500 ml @ 500 mls/hr Q1H PRN IV BLOOD PRESSURE SUPPORT Last ad ministered on 10/10/18at 07:59; Admin Dose 500 MLS/HR; Start 10/09/18 at 19:30 Albuterol (Ventolin Hfa) 4 puff Q6H RESP THERAPY INH Last administered on 10/25/18at 02:20; Admin Dose 4 PUFF; Start 10/10/18 at 02:00 Ipratropium [place] (Atrovent Hfa) 4 puff Q6H RESP THERAPY INH Last administered on 10/25/18 02:20; Admin Dose 4 PUFF; Start 10/10/18 at 02:00 Methylprednisolone Sodium Succinate (Solu-Medrol) 40 mg Q8 IV Last administered on 10/25/18at 05:08; Admin Dose 40 MG; Start 10/14/18 at 14:00 Lorazepam (Ativan) 1 mg Q4H PRN GTB AGITATION/ANXIETY Last administered on 10/19/18 17:35; Admin Dose 1 MG; Start 10/14/18 at 13:00 Lisinopril (Zestril) 2.5 mg DAILY PO Last administered on 10/24/18 08:33; Admin Dose 2.5 MG; Start 10/15/18 at 09:00 Linagliptin (Tradjenta) 5 mg DAILY PO Last administered on 10/24/18 08:33; Admin Dose 5 MG; Start 10/16/18 at 10:30 Fentanyl (Duragesic 50 Mcg/Hr Patch) 1 patch Q72H TRANSDERM Last administered on 10/23/18 21:32; Admin Dose 1 PATCH; Start 10/17/18 at 20:30 Lorazepam (Ativan) 2 mg Q6H GTB Last administered on 10/25/18 03:46; Admin Dose 2 MG; Start 10/20/18 at 15:00 Quetiapine Fumarate (Seroquel) 100 mg BID GTB Last administered on 10/24/18 20:43; Admin Dose 100 MG; Start 10/21/18 at 21:00 Hydromorphone HCl (Dilaudid) 6 mg Q4H PRN PO MODERATE PAIN LEVEL 7-10 Last administered on 10/24/18 23:59; Admin Dose 6 MG; Start 10/21/18 at 22:00 Calcitriol (Rocaltrol) 0.5 mcg TID PO Last administered on 10/24/18 20:43; Admin Dose 0.5 MCG; Start 10/22/18 at 09:00 Carvedilol (Coreg) 12.5 mg BID PO Last administered on 10/24/18 20:44; Admin Dose 12.5 MG; Start 10/23/18 at 21:00 Calcium Carbonate (Ca Carbonate) 1,250 mg QID GTB Last administered on 10/24/18 20:42; Admin Dose 1,250 MG; Start 10/24/18 at 13:00 Assessment/Plan Hospital Course (Demo Recall) 1. Tachycardia at this time in the setting of fevers and respiratory distress, most consistent with sinus tachycardia likely driving this process - better now, con't supportive Rx and pain management- con't anxiety Rx. Con;t supportive RX. 2. Hypertension with borderline hypotension at this time. -still borderline Hotn - no focal symptoms. Will monitor now. In good range. STABLE. 3. Abnormal electrocardiogram at baseline.Sinus tach. 4. Chronic respiratory failure, status post tracheostomy.-weaning vent support - con't resp Rx. Con;t resp Rx. 5. Dysphagia, status post G-tube. 6. Quadriplegia- skin care in palce. NO change. 7. Renal insufficiency, on steroids- Cr 0.97 now. Stable. Good urine output now. Good urine output. 8. Chronic obstructive pulmonary disease - con't resp Rx per pulmonary team. 9. Rheumatoid arthritis. 10. Chronic kidney disease. 11. Diabetes mellitus- on meds. VANESSA COOPER MD Oct 25, 2018 08:23
--- NOTE | 2018-10-25 08:27 | PN ---
DATE: 10/25/2018 SUBJECTIVE: The patient is stable. No events overnight. No fevers, chills, nausea, or vomiting. OBJECTIVE: VITAL SIGNS: Blood pressure is 123/82, respirations 21, pulse 113, temperature 98.2. HEENT: Head is normocephalic. NECK: Supple. HEART: Regular rate. LUNGS: Show diminished breath sounds at the base. ABDOMEN: Soft, nontender to palpation without rebound or guarding. EXTREMITIES: Negative for clubbing, cyanosis, no edema. DERMATOLOGIC: No rashes. MUSCULOSKELETAL: No joint effusion. NEUROLOGIC: No change in exam. MEDICATIONS: Reviewed. LABORATORY DATA: Shows sodium 133, potassium 4.3, BUN 33, creatinine 0.44, calcium 7.0. White count 24.1, hemoglobin 9.2, platelet count is 414. ASSESSMENT AND PLAN: 1. Nonoliguric acute kidney injury, etiology is secondary to hemodynamics. Renal function is improv ed. Continue to monitor. 2. Hypomagnesemia. Continue to monitor and replete as needed. 3. Hypernatremia. Monitor closely. We will decrease free water flushes if sodium levels do not imp rove. 4. Mineral bone disorder, monitor calcium and phosphorus levels. 5. Ventilator-dependent respiratory failure. Vent settings and ABG was reviewed. Continue to monit or. 6. Adrenal insufficiency. Continue Cortef. 7. Anemia. Monitor hemoglobin and hematocrit levels. 8. Dysphagia. Continue tube feeding. 9. Sepsis secondary to pneumonia. The patient is completing antibiotic course. 10. Hypertension. 11. Tachyarrhythmia. Continue to monitor. 12. Seizure disorder. Continue current treatment plan. 13. Anxiety disorder. Dictated By: UNA HONG/NTS Conf#: [id number] DID#: [id number] CC: CAMELIA VALENTINE MD; NOLA VIDAL MD;*EndCC*
[2018-10-25] MEDS: HYDROXYCHLOROQUINE 200 MG TAB PO SCH ×2 (08:34→20:53)
[2018-10-25] MEDS: TRIMETHOPRIM/SULFAMETHOX (PO SYG) GTB SCH (08:34)
[2018-10-25] MEDS: LISINOPRIL 5 MG TAB PO SCH (08:35)
[2018-10-25] MEDS: HYDROmorphONE 2 MG TAB PO PRN ×3 (08:36→21:10)
[2018-10-25] MEDS: QUETIAPINE 100 MG TAB GTB SCH ×2 (08:37→21:02)
[2018-10-25] MEDS: DULOXETINE 30 MG CAP DR PO SCH (08:37)
[2018-10-25] MEDS: LINAGLIPTIN 5 MG TABLET PO SCH (08:37)
[2018-10-25] MEDS: L ACIDOPHIL/B LACTIS/B LONGUM CAPSULE GTB SCH ×2 (08:38→21:02)
[2018-10-25] MEDS: MAGNESIUM OXIDE 400 MG TAB GTB SCH ×2 (08:38→20:52)
[2018-10-25] MEDS: CALCITRIOL 0.25 MCG CAP PO SCH ×2 (08:39→20:52)
[2018-10-25] MEDS: CA CARBONATE (250 MG/ML) 5ML CUP GTB SCH ×4 (08:39→20:52)
[2018-10-25] MEDS: METOCLOPRAMIDE 10 MG INJ IV SCH ×3 (08:39→20:52)
[2018-10-25] MEDS: LEVETIRACETAM (100 MG/ML) 5ML CUP GTB SCH ×2 (08:39→20:52)
[2018-10-25] MEDS: BALSAM PERU/CASTOR OIL 60 GM TUBE TOP SCH ×2 (08:40→20:54)
[2018-10-25] MEDS: MICONAZOLE 2% 30 GM CR TOP SCH ×2 (08:40→20:54)
--- NOTE | 2018-10-25 09:01 | CONS ---
Consult Date/Type/Reason Admit Date/Time Oct 09, 2018 at 12:16 Initial Consult Date 10/09/18 Type of Consult Pulmonary Requesting Provider: NOLA VIDAL MD Date/Time of Note DATE: 10/25/18 TIME: 09:00 Subjective No significant changes. FiO2 at 55% this morning with minimal secretions remains awake alert anxious but no respiratory distress. Objective Vital Signs Date Temp Pulse Resp B/P (MAP) Pulse Ox O2 O2 Flow FiO2 Time Delivery Rate 10/25/18 113 21 123/82 93 Mechanical 07:00 (96) Ventilator 10/25/18 65 05:25 10/25/18 98.2 04:00 Intake and Output 10/24/18 10/24/18 10/25/18 1515:00 23:00 07:00 IntakeIntake Total 370 ml 370 ml 420 ml OutputOutput Total 150 ml 780 ml 845 ml BalanceBalance 220 ml -410 ml -425 ml Exam GENERAL: Elderly appearing gentleman on mechanical ventilation via tracheostomy VITAL SIGNS: per chart NECK: Supple. No JVD or lymphadenopathy. CARDIAC EXAM: S1, S2. No added sounds or murmurs. CHEST: Diminished air entry bilaterally with rales ABDOMEN: Soft, nontender. No guarding or rebound. EXTREMITIES: No cyanosis, clubbing or edema. NEUROLOGIC: Generalized weakness. No focal deficits. Vent Setting Ventilator Support Mode: AC, VC plus Fraction of Inspired Oxygen pe: 65 Positive End Expiratory Pressu: 5.0 Results/Medications Result Diagram: 10/24/18 0445 10/25/18 0500 Results 24 hrs Laboratory Tests Test 10/24/18 14:21 10/24/18 19:56 10/25/18 01:51 10/25/18 05:00 Bedside Glucose 186 166 202 Sodium Level 133 L Potassium Level 4.3 Chloride Level 92 L Carbon Dioxide 34 H Level Anion Gap 7 Blood Urea 33 H Nitrogen Creatinine 0.44 L Est Glomerular > 60 Filtrat Rate mL/min Glucose Level 172 Calcium Level 7.0 L Total Bilirubin 0.1 L Direct Bilirubin 0.00 Indirect Bilirubin 0.1 Aspartate Amino 24 Transf (AST/SGOT) Alanine 36 Aminotransferase ( ALT/SGPT) Alkaline 118 Phosphatase Total Protein 5.3 L Albumin 2.8 L Globulin 2.50 Albumin/Globulin 1.12 Ratio Test 10/25/18 08:06 10/25/18 08:24 Bedside Glucose 144 Lab Scanned Report REFERENCE LAB Medications Current Medications Acetaminophen (Tylenol Liquid) 650 mg Q4H PRN GTB MILD PAIN(1-3)OR ELEVATED TEMP Last administered on 10/16/18 07:52; Admin Dose 650 MG; Start 10/09/18 at 14:00 Al Hydrox/Mg Hydrox/Simethicone (Mag-Al Plus) 15 ml Q6H PRN PO GASTROINTESTINAL UPSET Last administered on 10/17/18 13:18; Admin Dose 15 ML; Start 10/09/18 at 14:00 Eye Lubricant (Artificial Tears Oph) 1 drop Q6H PRN BOTH EYES DRY EYES; Start 10/09/18 at 14:00 Bisacodyl (Dulcolax Supp) 10 mg DAILY PRN [place] CONSTIPATION; Start 10/09/18 at 14:00 Clonidine (Catapres) 0.1 mg DAILY PRN GTB ELEVATED BLOOD PRESSURE; Start 10/09/18 at 14:00 Diltiazem HCl (Cardizem Iv) 5 mg Q4 PRN IV ELEVATED HEART RATE Last ad ministered on 10/18/18 01:09; Admin Dose 5 MG; Start 10/09/18 at 14:00 Diphenhydramine HCl (Benadryl Liquid Cup) 25 mg Q6 PRN GTB ITCHING Last administered on 10/22/18 20:25; Admin Dose 25 MG; Start 10/09/18 at 14:00 Duloxetine HCl (Cymbalta) 30 mg DAILY PO Last administered on 10/25/18 08:37; Admin Dose 30 MG; Start 10/10/18 at 09:00 Epoetin Arpan (Epogen (Esrd)) 10,000 units TuSa@1300 SC Last administered on 10/22/18 13:05; Admin Dose 10,000 UNITS; Start 10/11/18 at 13:00 Gabapentin (Neurontin Liquid) 400 mg Q8 GTB Last administered on 10/25/18 05:08; Admin Dose 400 MG; Start 10/09/18 at 15:30 Hydralazine HCl (Apresoline) 10 mg Q4H PRN IV ELEVATED BLOOD PRESSURE; Start 10/09/18 at 14:00 Hydroxychloroquine Sulfate (Plaquenil) 200 mg BID PO Last administered on 10/25/18 08:34; Admin Dose 200 MG; Start 10/09/18 at 21:00 Diagnostic Test (Pha) (Accu-Chek) 1 ea 02 XX Last administered on 10/25/18 01:46; Admin Dose 1 EA; Start 10/10/18 at 02:00 Insulin Aspart (Novolog Insulin Pen) NOVOLOG *CUSTOM* ALGORITHM Q6H SC Last administered on 10/25/18 01:53; Admin Dose 2 UNIT; Start 10/09/18 at 14:00 Lactobacillus Acidophilus (Florajen3 Capsule) 1 each BID GTB Last administered on 10/25/18 08:38; Admin Dose 1 EACH; Start 10/09/18 at 21:00 Lansoprazole (Prevacid) 30 mg BID@,18 GTB Last administered on 10/25/18 05:08; Admin Dose 30 MG; Start 10/09/18 at 18:00 Levetiracetam (Keppra Liquid) 500 mg BID GTB Last administered on 10/25/18 08:39; Admin Dose 500 MG; Start 10/09/18 at 21:00 Magnesium Oxide (Mag-Ox 400) 400 mg BID GTB Last administered on 10/25/18 08:38; Admin Dose 400 MG; Start 10/09/18 at 21:00 Metoclopramide HCl (Reglan) 10 mg TID IV Last administered on 10/25/18 08:39; Admin Dose 10 MG; Start 10/09/18 at 21:00 Miconazole Nitrate (Miconazole 2% Cr) 1 applic BID TOP Last administered on 10/25/18 08:40; Admin Dose 1 APPLIC; Start 10/09/18 at 21:00 Miconazole Nitrate (Miconazole 2% Cr) 1 applic Q12 PRN TOP rash; Start 10/09/18 at 14:00 Ondansetron HCl (Zofran Inj) 4 mg Q4H PRN IV NAUSEA AND/OR VOMITING Last administered on 10/19/18 16:37; Admin Dose 4 MG; Start 10/09/18 at 14:00 Polyethylene Glycol (Miralax) 17 gm DAILY PRN GTB CONSTIPATION; Start 10/09/18 at 14:00 Senna (Senokot) 2 tab Q8 PRN PO CONSTIPATION; Start 10/09/18 at 14:00 Trimethoprim/ Sulfamethoxazole (Bactrim Susp) 40 ml DAILY GTB Last administered on 10/25/18 08:34; Admin Dose 40 ML; Start 10/10/18 at 09:00 Zolpidem Tartrate (Ambien) 5 mg HS PRN PO INSOMNIA Last administered on 10/21/18 02:34; Admin Dose 5 MG; Start 10/09/18 at 14:00 Miscellaneous Information 1 ea NOTE XX ; Start 10/09/18 at 15:00 Glucose (Glutose) 15 gm Q15M PRN PO DECREASED GLUCOSE; Start 10/09/18 at 15:00 Glucose (Glutose) 22.5 gm Q15M PRN PO DECREASED GLUCOSE; Start 10/09/18 at 15:00 Dextrose (D50w Syringe) 25 ml Q15M PRN IV DECREASED GLUCOSE; Start 10/09/18 at 15:00 Dextrose (D50w Syringe) 50 ml Q15M PRN IV DECREASED GLUCOSE; Start 10/09/18 at 15:00 Glucagon (Glucagen) 1 mg Q15M PRN IM DECREASED GLUCOSE; Start 10/09/18 at 15:00 Glucose (Glutose) 15 gm Q15M PRN BUCCAL DECREASED GLUCOSE; Start 10/09/18 at 15:00 Sodium Chloride 500 ml @ 500 mls/hr Q1H PRN IV BLOOD PRESSURE SUPPORT Last administered on 10/10/18 07:59; Admin Dose 500 MLS/HR; Start 10/09/18 at 19:30 Albuterol (Ventolin Hfa) 4 puff Q6H RESP THERAPY INH Last administered on 10/25/18 08:31; Admin Dose 4 PUFF; Start 10/10/18 at 02:00 Ipratropium [place] (Atrovent Hfa) 4 puff Q6H RESP THERAPY INH Last admin istered on 10/25/18 08:31; Admin Dose 4 PUFF; Start 10/10/18 at 02:00 Methylprednisolone Sodium Succinate (Solu-Medrol) 40 mg Q8 IV Last administered on 10/25/18 05:08; Admin Dose 40 MG; Start 10/14/18 at 14:00 Lorazepam (Ativan) 1 mg Q4H PRN GTB AGITATION/ANXIETY Last administered on 10/19/18 17:35; Admin Dose 1 MG; Start 10/14/18 at 13:00 Lisinopril (Zestril) 2.5 mg DAILY PO Last administered on 10/25/18 08:35; Admin Dose 2.5 MG; Start 10/15/18 at 09:00 Linagliptin (Tradjenta) 5 mg DAILY PO Last administered on 10/25/18 08:37; Admin Dose 5 MG; Start 10/16/18 at 10:30 Fentanyl (Duragesic 50 Mcg/Hr Patch) 1 patch Q72H TRANSDERM Last administered on 10/23/18 21:32; Admin Dose 1 PATCH; Start 10/17/18 at 20:30 Lorazepam (Ativan) 2 mg Q6H GTB Last administered on 10/25/18 08:38; Admin D ose 2 MG; Start 10/20/18 at 15:00 Quetiapine Fumarate (Seroquel) 100 mg BID GTB Last administered on 10/25/18 08:37; Admin Dose 100 MG; Start 10/21/18 at 21:00 Hydromorphone HCl (Dilaudid) 6 mg Q4H PRN PO MODERATE PAIN LEVEL 7-10 Last administered on 10/25/18 08:36; Admin Dose 6 MG; Start 10/21/18 at 22:00 Calcitriol (Rocaltrol) 0.5 mcg TID PO Last administered on 10/25/18 08:39; Admin Dose 0.5 MCG; Start 10/22/18 at 09:00 Carvedilol (Coreg) 12.5 mg BID PO Last administered on 10/25/18 08:36; Admin Dose 12.5 MG; Start 10/23/18 at 21:00 Calcium Carbonate (Ca Carbonate) 1,250 mg QID GTB Last administered on 10/25/18 08:39; Admin Dose 1,250 MG; Start 10/24/18 at 13:00 Assessment/Plan Hospital Course (Demo Recall) IMP: 1. Acute on chronic hypoxemic respiratory failure with underlying acute respiratory distress syndrome. 2. History of HSV esophagitis. 3. Chronic sepsis. 4. History of rheumatoid arthritis. 5. C-spine disease with functional quadriplegia. 6. Dysphagia with G-tube. PLAN: 1. Continue mechanical, decrease FiO2 as tolerated 2. Continue tube feeding 3. Rule out TB ID 4. PT eval as tolerated Consider family conference regarding goals of care. Transfer to [place]. Critical care time 40 minutes DALOTN DURBIN MD, [facility] Oct 25, 2018 09:01
--- NOTE | 2018-10-25 11:46 | CONS ---
Assessment/Plan Assessment/Plan Problems: (1) Hypocalcemia Onset Date: ~ 10/14/2018 Status: Acute Comment: Calcium has come up somewhat but has not quite hit our goal. I will continue to adjust medications and we will recheck the parathyroid hormone levels. 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 Consideration for tapering as per primary team and pulmonary Consultation Date/Type/Reason Admit Date/Time Oct 09, 2018 at 12:16 Initial Consult Date 10/12/18 Type of Consult Endocrinology Reason for Consultation Calcium anemia; adrenal insufficiency Requesting Provider: NOLA VIDAL MD Date/Time of Note DATE: 10/25/18 TIME: 11:44 24 HR Interval Summary Free Text/Dictation no Changes no new complaints Detailed Summary Endocrine: no complaints Exam/Review of Systems Exam Vitals Vital Signs Date Temp Pulse Resp B/P (MAP) Pulse Ox O2 O2 Flow FiO2 Time Delivery Rate 10/25/18 92 20 108/62 Mechanical 11:00 (77) Ventilator 10/25/18 99 10:00 10/25/18 98.0 08:00 10/25/18 65 08:00 Intake and Output 10/24/18 10/24/18 10/25/18 1515:00 23:00 07:00 IntakeIntake Total 370 ml 370 ml 420 ml OutputOutput Total 150 ml 780 ml 845 ml BalanceBalance 220 ml -410 ml -425 ml Exam No change in exam Constitutional: alert, oriented Neurological: other (Should Chvostek negative Trousseau) Results Result Diagram: 10/24/18 0445 10/25/18 0500 Results 24hrs Laboratory Tests Test 10/24/18 14:21 10/24/18 19:56 10/25/18 01:51 10/25/18 05:00 Bedside Glucose 186 166 202 Sodium Level 133 L Potassium Level 4.3 Chloride Level 92 L Carbon Dioxide 34 H Level Anion Gap 7 Blood Urea 33 H Nitrogen Creatinine 0.44 L Est Glomerular > 60 Filtrat Rate mL/min Glucose Level 172 Calcium Level 7.0 L Total Bilirubin 0.1 L Direct Bilirubin 0.00 Indirect 0.1 Bilirubin Aspartate Amino 24 Transf (AST/SGOT ) Alanine 36 Aminotransferase (ALT/SGPT) Alkaline 118 Phosphatase Total Protein 5.3 L Albumin 2.8 L Globulin 2.50 Albumin/Globulin 1.12 Ratio Test 10/25/18 08:06 10/25/18 08:24 10/25/18 10:25 Bedside Glucose 144 Lab Scanned REFERENCE LAB Report Blood Gas Blood arterial Specimen Source Arterial Blood 10/25/2018 10:25 Date Drawn :00 AM Arterial Blood 7.355 pH (Temp corrected) Arterial Blood 56.7 H pCO2 (Temp correct) Arterial Blood 98.0 pO2 (Temp corrected) Arterial Blood 31.0 H HCO3 Arterial Blood 4.5 H Base Excess Arterial Blood 96.5 Oxygen Saturatio n [place] Test ACCEPTAB Arterial Blood Left Radial Gas Puncture Site Arterial 0.2 Blood Carboxyhem oglobin Arterial Blood 0.3 Methemoglobin Blood Gas A-a O2 303.8 H Differential Oxyhemoglobin 96.0 Percent Blood Gas 37.0 Temperature Blood Gas 20.0 Respiration Rate Blood Gas Actual 22 Respiration Rate Blood Gas VENT - AC Modality FiO2 65.0 Blood Gas Tidal 400.0 Volume Blood Gas Low 5.0 PEEP Setting Blood Gas TM Notified Whom Blood Gas 10/25/2018 10:33 Notified Time :00 AM Medications Medication Current Medications Acetaminophen (Tylenol Liquid) 650 mg Q4H PRN GTB MILD PAIN(1-3)OR ELEVATED TEMP Last administered on 10/16/18at 07:52; Admin Dose 650 MG; Start 10/09/18 at 14:00 Al Hydrox/Mg Hydrox/Simethicone (Mag-Al Plus) 15 ml Q6H PRN PO GASTROINTESTINAL UPSET Last administered on 10/17/18at 13:18; Admin Dose 15 ML; Start 10/09/18 at 14:00 Eye Lubricant (Artificial Tears Oph) 1 drop Q6H PRN BOTH EYES DRY EYES; Start 10/09/18 at 14:00 Bisacodyl (Dulcolax Supp) 10 mg DAILY PRN [place] CONSTIPATION; Start 10/09/18 at 14:00 Clonidine (Catapres) 0.1 mg DAILY PRN GTB ELEVATED BLOOD PRESSURE; Start 10/09/18 at 14:00 Diltiazem HCl (Cardizem Iv) 5 mg Q4 PRN IV ELEVATED HEART RATE Last administered on 10/18/18at 01:09; Admin Dose 5 MG; Start 10/09/18 at 14:00 Diphenhydramine HCl (Benadryl Liquid Cup) 25 mg Q6 PRN GTB ITCHING Last administered on 10/22/18 20:25; Admin Dose 25 MG; Start 10/09/18 at 14:00 Duloxetine HCl (Cymbalta) 30 mg DAILY PO Last administered on 10/25/18 08:37; Admin Dose 30 MG; Start 10/10/18 at 09:00 Epoetin Arpan (Epogen (Esrd)) 10,000 units TuSa@1300 SC Last administered on 10/22/18 13:05; Admin Dose 10,000 UNITS; Start 10/11/18 at 13:00 Gabapentin (Neurontin Liquid) 400 mg Q8 GTB Last administered on 10/25/18 05:08; Admin Dose 400 MG; Start 10/09/18 at 15:30 Hydralazine HCl (Apresoline) 10 mg Q4H PRN IV ELEVATED BLOOD PRESSURE; Start 10/09/18 at 14:00 Hydroxychloroquine Sulfate (Plaquenil) 200 mg BID PO Last administered on 10/25/18 08:34; Admin Dose 200 MG; Start 10/09/18 at 21:00 Diagnostic Test (Pha) (Accu-Chek) 1 ea 02 XX Last administered on 10/25/18 01:46; Admin Dose 1 EA; Start 10/10/18 at 02:00 Insulin Aspart (Novolog Insulin Pen) NOVOLOG *CUSTOM* ALGORITHM Q6H SC Last ad ministered on 10/25/18 01:53; Admin Dose 2 UNIT; Start 10/09/18 at 14:00 Lactobacillus Acidophilus (Florajen3 Capsule) 1 each BID GTB Last administered on 10/25/18 08:38; Admin Dose 1 EACH; Start 10/09/18 at 21:00 Lansoprazole (Prevacid) 30 mg BID@06,18 GTB Last administered on 10/25/18 05:08; Admin Dose 30 MG; Start 10/09/18 at 18:00 Levetiracetam (Keppra Liquid) 500 mg BID GTB Last administered on 10/25/18 08:39; Admin Dose 500 MG; Start 10/09/18 at 21:00 Magnesium Oxide (Mag-Ox 400) 400 mg BID GTB Last administered on 10/25/18 08:38; Admin Dose 400 MG; Start 10/09/18 at 21:00 Metoclopramide HCl (Reglan) 10 mg TID IV Last administered on 10/25/18at 08:39; Admin Dose 10 MG; Start 10/09/18 at 21:00 Miconazole Nitrate (Miconazole 2% Cr) 1 applic BID TOP Last administered on 10/25/18at 08:40; Admin Dose 1 APPLIC; Start 10/09/18 at 21:00 Miconazole Nitrate (Miconazole 2% Cr) 1 applic Q12 PRN TOP rash; Start 10/09/18 at 14:00 Ondansetron HCl (Zofran Inj) 4 mg Q4H PRN IV NAUSEA AND/OR VOMITING Last administered on 10/19/18at 16:37; Admin Dose 4 MG; Start 10/09/18 at 14:00 Polyethylene Glycol (Miralax) 17 gm DAILY PRN GTB CONSTIPATION; Start 10/09/18 at 14:00 Senna (Senokot) 2 tab Q8 PRN PO CONSTIPATION; Start 10/09/18 at 14:00 Trimethoprim/ Sulfamethoxazole (Bactrim Susp) 40 ml DAILY GTB Last administered on 10/25/18at 08:34; Admin Dose 40 ML; Start 10/10/18 at 09:00 Zolpidem Tartrate (Ambien) 5 mg HS PRN PO INSOMNIA Last administered on 10/21/18at 02:34; Admin Dose 5 MG; Start 10/09/18 at 14:00 Miscellaneous Information 1 ea NOTE XX ; Start 10/09/18 at 15:00 Glucose (Glutose) 15 gm Q15M PRN PO DECREASED GLUCOSE; Start 10/09/18 at 15:00 Glucose (Glutose) 22.5 gm Q15M PRN PO DECREASED GLUCOSE; Start 10/09/18 at 15:00 Dextrose (D50w Syringe) 25 ml Q15M PRN IV DECREASED GLUCOSE; Start 10/09/18 at 15:00 Dextrose (D50w Syringe) 50 ml Q15M PRN IV DECREASED GLUCOSE; Start 10/09/18 at 15:00 Glucagon (Glucagen) 1 mg Q15M PRN IM DECREASED GLUCOSE; Start 10/09/18 at 15:00 Glucose (Glutose) 15 gm Q15M PRN BUCCAL DECREASED GLUCOSE; Start 10/09/18 at 15:00 Sodium Chloride 500 ml @ 500 mls/hr Q1H PRN IV BLOOD PRESSURE SUPPORT Last administered on 10/10/18 07:59; Admin Dose 500 MLS/HR; Start 10/09/18 at 19:30 Albuterol (Ventolin Hfa) 4 puff Q6H RESP THERAPY INH Last administered on 10/25/18 08:31; Admin Dose 4 PUFF; Start 10/10/18 at 02:00 Ipratropium [place] (Atrovent Hfa) 4 puff Q6H RESP THERAPY INH Last administered on 10/25/18 08:31; Admin Dose 4 PUFF; Start 10/10/18 at 02:00 Methylprednisolone Sodium Succinate (Solu-Medrol) 40 mg Q8 IV Last administered on 10/25/18 05:08; Admin Dose 40 MG; Start 10/14/18 at 14:00 Lorazepam (Ativan) 1 mg Q4H PRN GTB AGITATION/ANXIETY Last administered on 10/19/18 17:35; Admin Dose 1 MG; Start 10/14/18 at 13:00 Lisinopril (Zestril) 2.5 mg DAILY PO Last administered on 10/25/18 08:35; Admin Dose 2.5 MG; Start 10/15/18 at 09:00 Linagliptin (Tradjenta) 5 mg DAILY PO Last administered on 10/25/18 08:37; Adm in Dose 5 MG; Start 10/16/18 at 10:30 Fentanyl (Duragesic 50 Mcg/Hr Patch) 1 patch Q72H TRANSDERM Last administered on 10/23/18 21:32; Admin Dose 1 PATCH; Start 10/17/18 at 20:30 Lorazepam (Ativan) 2 mg Q6H GTB Last administered on 10/25/18 08:38; Admin Dose 2 MG; Start 10/20/18 at 15:00 Quetiapine Fumarate (Seroquel) 100 mg BID GTB Last administered on 10/25/18 08:37; Admin Dose 100 MG; Start 10/21/18 at 21:00 Hydromorphone HCl (Dilaudid) 6 mg Q4H PRN PO MODERATE PAIN LEVEL 7-10 Last administered on 10/25/18 08:36; Admin Dose 6 MG; Start 10/21/18 at 22:00 Calcitriol (Rocaltrol) 0.5 mcg TID PO Last administered on 10/25/18 08:39; Admin Dose 0.5 MCG; Start 10/22/18 at 09:00 Carvedilol (Coreg) 12.5 mg BID PO Last administered on 10/25/18 08:36; Admin Dose 12.5 MG; Start 10/23/18 at 21:00 Calcium Carbonate (Ca Carbonate) 1,250 mg QID GTB Last administered on 10/25/18at 08:39; Admin Dose 1,250 MG; Start 10/24/18 at 13:00 KEV ISSA MD Oct 25, 2018 11:45
--- NOTE | 2018-10-25 12:33 | PN ---
Date/Time of Note Date/Time of Note DATE: 10/25/18 TIME: 12:32 Assessment/Plan VTE Prophylaxis Risk score (from Ns)>0 risk: 9 SCD applied (from [facility] [place]): Yes Pharmacological prophylaxis: NA/contraindicated Pharm contraindication: other Lines/Catheters IV C[facility]ter Type (from [facility] Mid Line Central line still needed: Yes Urinary Cath still in place: Yes Reason Cath still needed: urinary retention Assessment/Plan Hospital Course Patient continues on ventilatory support without distress with FiO2 of 65% patient is resting however easily arousable, pain is reasonably controlled. Assessment/Plan - Acute on chronic hypoxemic respiratory failure with underlying ARDS, continue ventilatory support. Dr. Villa is following in pulmonology consultation. - Acute kidney injury, continue to monitor BUN and creatinine. G-tube feeding changed to renal source. Dr. Hobson is following in nephrology consultation. -Tachycardia, Dr. Joshi is following in cardiology consultation. - Cardiomyopathy with EF 35-40% - Rheumatoid arthritis with steroid dependence. The patient's pain seems to be controlled with the current dose of fentanyl. - Dysphagia. Continue GT feeding. - Anemia of chronic disease. - Hypoparathyroidism with recent hypercalcemia, status post pamidronate. - Hypertension. - Functional quadriplegia - Hx of severe cervical spinal cord stenosis with cord compression from C3-C5, s/p laminectomy. - History of fibromyalgia rheumatica - Hx of VAT on 08/11/2018 Critical care time spent 30 minutes. Further recommendations based on clinical course. Plan of care discussed with Dr. Rosales Result Diagram: 10/24/18 0445 10/25/18 0500 Results 24hrs Laboratory Tests Test 10/24/18 14:21 10/24/18 19:56 10/25/18 01:51 10/25/18 05:00 Bedside Glucose 186 166 202 Sodium Level 133 L Potassium Level 4.3 Chloride Level 92 L Carbon Dioxide 34 H Level Anion Gap 7 Blood Urea 33 H Nitrogen Creatinine 0.44 L Est Glomerular > 60 Filtrat Rate mL/min Glucose Level 172 Calcium Level 7.0 L Total Bilirubin 0.1 L Direct Bilirubin 0.00 Indirect 0.1 Bilirubin Aspartate Amino 24 Transf (AST/SGOT ) Alanine 36 Aminotransferase (ALT/SGPT) Alkaline 118 Phosphatase Total Protein 5.3 L Albumin 2.8 L Globulin 2.50 Albumin/Globulin 1.12 Ratio Test 10/25/18 08:06 10/25/18 08:24 10/25/18 10:25 Bedside Glucose 144 Lab Scanned REFERENCE LAB Report Blood Gas Blood arterial Specimen Source Arterial Blood 10/25/2018 10:25 Date Drawn :00 AM Arterial Blood 7.355 pH (Temp corrected) Arterial Blood 56.7 H pCO2 (Temp correct) Arterial Blood 98.0 pO2 (Temp corrected) Arterial Blood 31.0 H HCO3 Arterial Blood 4.5 H Base Excess Arterial Blood 96.5 Oxygen Saturatio n [place] Test ACCEPTAB Arterial Blood Left Radial Gas Puncture Site Arterial 0.2 Blood Carboxyhem oglobin Arterial Blood 0.3 Methemoglobin Blood Gas A-a O2 303.8 H Differential Oxyhemoglobin 96.0 Percent Blood Gas 37.0 Temperature Blood Gas 20.0 Respiration Rate Blood Gas Actual 22 Respiration Rate Blood Gas VENT - AC Modality FiO2 65.0 Blood Gas Tidal 400.0 Volume Blood Gas Low 5.0 PEEP Setting Blood Gas TM Notified Whom Blood Gas 10/25/2018 10:33 Notified Time :00 AM Exam/Review of Systems Exam Vitals Vital Signs Date Temp Pulse Resp B/P (MAP) Pulse Ox O2 O2 Flow FiO2 Time Delivery Rate 10/25/18 92 20 108/62 Mechanical 11:00 (77) Ventilator 10/25/18 99 10:00 10/25/18 98.0 08:00 10/25/18 65 08:00 Intake and Output 10/24/18 10/24/18 10/25/18 1515:00 23:00 07:00 IntakeIntake Total 370 ml 370 ml 420 ml OutputOutput Total 150 ml 780 ml 845 ml BalanceBalance 220 ml -410 ml -425 ml Exam Constitutional: alert, oriented, frail Neck: other (trach) Respiratory: diminished breath sounds Cardiovascular: regular rate and rhythm Gastrointestinal: soft, non-tender, other Neurological: nl mental status Results Results 24hrs Laboratory Tests Test 10/24/18 14:21 10/24/18 19:56 10/25/18 01:51 10/25/18 05:00 Bedside Glucose 186 166 202 Sodium Level 133 L Potassium Level 4.3 Chloride Level 92 L Carbon Dioxide 34 H Level Anion Gap 7 Blood Urea 33 H Nitrogen Creatinine 0.44 L Est Glomerular > 60 Filtrat Rate mL/min Glucose Level 172 Calcium Level 7.0 L Total Bilirubin 0.1 L Direct Bilirubin 0.00 Indirect 0.1 Bilirubin Aspartate Amino 24 Transf (AST/SGOT ) Alanine 36 Aminotransferase (ALT/SGPT) Alkaline 118 Phosphatase Total Protein 5.3 L Albumin 2.8 L Globulin 2.50 Albumin/Globulin 1.12 Ratio Test 10/25/18 08:06 10/25/18 08:24 10/25/18 10:25 Bedside Glucose 144 Lab Scanned REFERENCE LAB Report Blood Gas Blood arterial Specimen Source Arterial Blood 10/25/2018 10:25 Date Drawn :00 AM Arterial Blood 7.355 pH (Temp corrected) Arterial Blood 56.7 H pCO2 (Temp correct) Arterial Blood 98.0 pO2 (Temp corrected) Arterial Blood 31.0 H HCO3 Arterial Blood 4.5 H Base Excess Arterial Blood 96.5 Oxygen Saturatio n [place] Test ACCEPTAB Arterial Blood Left Radial Gas Puncture Site Arterial 0.2 Blood Carboxyhem oglobin Arterial Blood 0.3 Methemoglobin Blood Gas A-a O2 303.8 H Differential Oxyhemoglobin 96.0 Percent Blood Gas 37.0 Temperature Blood Gas 20.0 Respiration Rate Blood Gas Actual 22 Respiration Rate Blood Gas VENT - AC Modality FiO2 65.0 Blood Gas Tidal 400.0 Volume Blood Gas Low 5.0 PEEP Setting Blood Gas TM Notified Whom Blood Gas 10/25/2018 10:33 Notified Time :00 AM Medications Medication Current Medications Acetaminophen (Tylenol Liquid) 650 mg Q4H PRN GTB MILD PAIN(1-3)OR ELEVATED TEMP Last administered on 10/16/18at 07:52; Admin Dose 650 MG; Start 10/09/18 at 14:00 Al Hydrox/Mg Hydrox/Simethicone (Mag-Al Plus) 15 ml Q6H PRN PO GASTROINTESTINAL UPSET Last administered on 10/17/18at 13:18; Admin Dose 15 ML; Start 10/09/18 at 14:00 Eye Lubricant (Artificial Tears Oph) 1 drop Q6H PRN BOTH EYES DRY EYES; Start 10/09/18 at 14:00 Bisacodyl (Dulcolax Supp) 10 mg DAILY PRN [place] CONSTIPATION; Start 10/09/18 at 14:00 Clonidine (Catapres) 0.1 mg DAILY PRN GTB ELEVATED BLOOD PRESSURE; Start 10/09/18 at 14:00 Diltiazem HCl (Cardizem Iv) 5 mg Q4 PRN IV ELEVATED HEART RATE Last administered on 10/18/18 01:09; Admin Dose 5 MG; Start 10/09/18 at 14:00 Diphenhydramine HCl (Benadryl Liquid Cup) 25 mg Q6 PRN GTB ITCHING Last administered on 10/22/18 20:25; Admin Dose 25 MG; Start 10/09/18 at 14:00 Duloxetine HCl (Cymbalta) 30 mg DAILY PO Last administered on 10/25/18 08:37; Admin Dose 30 MG; Start 10/10/18 at 09:00 Epoetin Arpan (Epogen (Esrd)) 10,000 units TuSa@1300 SC Last administered on 10/22/18 13:05; Admin Dose 10,000 UNITS; Start 10/11/18 at 13:00 Gabapentin (Neurontin Liquid) 400 mg Q8 GTB Last administered on 10/25/18 05:08; Admin Dose 400 MG; Start 10/09/18 at 15:30 Hydralazine HCl (Apresoline) 10 mg Q4H PRN IV ELEVATED BLOOD PRESSURE; Start 10/09/18 at 14:00 Hydroxychloroquine Sulfate (Plaquenil) 200 mg BID PO Last administered on 10/25/18 08:34; Admin Dose 200 MG; Start 10/09/18 at 21:00 Diagnostic Test (Pha) (Accu-Chek) 1 ea 02 XX Last administered on 10/25/18 01:46; Admin Dose 1 EA; Start 10/10/18 at 02:00 Insulin Aspart (Novolog Insulin Pen) NOVOLOG *CUSTOM* ALGORITHM Q6H SC Last administered on 10/25/18 01:53; Admin Dose 2 UNIT; Start 10/09/18 at 14:00 Lactobacillus Acidophilus (Florajen3 Capsule) 1 each BID GTB Last administered on 10/25/18 08:38; Admin Dose 1 EACH; Start 10/09/18 at 21:00 Lansoprazole (Prevacid) 30 mg BID@06,18 GTB Last administered on 10/25/18 05:08; Admin Dose 30 MG; Start 10/09/18 at 18:00 Levetiracetam (Keppra Liquid) 500 mg BID GTB Last administered on 3/12/19at 08:39; Admin Dose 500 MG; Start 10/09/18 at 21:00 Magnesium Oxide (Mag-Ox 400) 400 mg BID GTB Last administered on 10/25/18at 08:38; Admin Dose 400 MG; Start 10/09/18 at 21:00 Metoclopramide HCl (Reglan) 10 mg TID IV Last administered on 10/25/18 08:39; Admin Dose 10 MG; Start 10/09/18 at 21:00 Miconazole Nitrate (Miconazole 2% Cr) 1 applic BID TOP Last administered on 10/25/18at 08:40; Admin Dose 1 APPLIC; Start 10/09/18 at 21:00 Miconazole Nitrate (Miconazole 2% Cr) 1 applic Q12 PRN TOP rash; Start 10/09/18 at 14:00 Ondansetron HCl (Zofran Inj) 4 mg Q4H PRN IV NAUSEA AND/OR VOMITING Last administered on 10/19/18at 16:37; Admin Dose 4 MG; Start 10/09/18 at 14:00 Polyethylene Glycol (Miralax) 17 gm DAILY PRN GTB CONSTIPATION; Start 10/09/18 at 14:00 Senna (Senokot) 2 tab Q8 PRN PO CONSTIPATION; Start 10/09/18 at 14:00 Trimethoprim/ Sulfamethoxazole (Bactrim Susp) 40 ml DAILY GTB Last administered on 10/25/18at 08:34; Admin Dose 40 ML; Start 10/10/18 at 09:00 Zolpidem Tartrate (Ambien) 5 mg HS PRN PO INSOMNIA Last administered on 10/21/18at 02:34; Admin Dose 5 MG; Start 10/09/18 at 14:00 Miscellaneous Information 1 ea NOTE XX ; Start 10/09/18 at 15:00 Glucose (Glutose) 15 gm Q15M PRN PO DECREASED GLUCOSE; Start 10/09/18 at 15:00 Glucose (Glutose) 22.5 gm Q15M PRN PO DECREASED GLUCOSE; Start 10/09/18 at 15:00 Dextrose (D50w Syringe) 25 ml Q15M PRN IV DECREASED GLUCOSE; Start 10/09/18 at 15:00 Dextrose (D50w Syringe) 50 ml Q15M PRN IV DECREASED GLUCOSE; Start 10/09/18 at 15:00 Glucagon (Glucagen) 1 mg Q15M PRN IM DECREASED GLUCOSE; Start 10/09/18 at 15:00 Glucose (Glutose) 15 gm Q15M PRN BUCCAL DECREASED GLUCOSE; Start 10/09/18 at 15:00 Sodium Chloride 500 ml @ 500 mls/hr Q1H PRN IV BLOOD PRESSURE SUPPORT Last administered on 10/10/18 07:59; Admin Dose 500 MLS/HR; Start 10/09/18 at 19:30 Albuterol (Ventolin Hfa) 4 puff Q6H RESP THERAPY INH Last administered on 10/25/18 08:31; Admin Dose 4 PUFF; Start 10/10/18 at 02:00 Ipratropium [place] (Atrovent Hfa) 4 puff Q6H RESP THERAPY INH Last administered on 10/25/18 08:31; Admin Dose 4 PUFF; Start 10/10/18 at 02:00 Methylprednisolone Sodium Succinate (Solu-Medrol) 40 mg Q8 IV Last administered on 10/25/18 05:08; Admin Dose 40 MG; Start 10/14/18 at 14:00 Lorazepam (Ativan) 1 mg Q4H PRN GTB AGITATION/ANXIETY Last administered on 10/19/18 17:35; Admin Dose 1 MG; Start 10/14/18 at 13:00 Lisinopril (Zestril) 2.5 mg DAILY PO Last administered on 10/25/18 08:35; Adm in Dose 2.5 MG; Start 10/15/18 at 09:00 Linagliptin (Tradjenta) 5 mg DAILY PO Last administered on 10/25/18 08:37; Admin Dose 5 MG; Start 10/16/18 at 10:30 Fentanyl (Duragesic 50 Mcg/Hr Patch) 1 patch Q72H TRANSDERM Last administered on 10/23/18 21:32; Admin Dose 1 PATCH; Start 10/17/18 at 20:30 Lorazepam (Ativan) 2 mg Q6H GTB Last administered on 10/25/18 08:38; Admin Dose 2 MG; Start 10/20/18 at 15:00 Quetiapine Fumarate (Seroquel) 100 mg BID GTB Last administered on 10/25/18 08:37; Admin Dose 100 MG; Start 10/21/18 at 21:00 Hydromorphone HCl (Dilaudid) 6 mg Q4H PRN PO MODERATE PAIN LEVEL 7-10 Last administered on 10/25/18 08:36; Admin Dose 6 MG; Start 10/21/18 at 22:00 Carvedilol (Coreg) 12.5 mg BID PO Last administered on 10/25/18 08:36; Admin Dose 12.5 MG; Start 10/23/18 at 21:00 Calcium Carbonate (Ca Carbonate) 1,250 mg QID GTB Last administered on 10/25/18 08:39; Admin Dose 1,250 MG; Start 10/24/18 at 13:00 Calcitriol (Rocaltrol) 1 mcg BID PO ; Start 10/25/18 at 21:00 CAROLYN LANGLEY Oct 25, 2018 12:33
[2018-10-25] MEDS: EPOETIN 10000 UNITS/1 ML INJ (ESRD) SC SCH (13:00)
--- NOTE | 2018-10-25 13:04 | CONS ---
Assessment/Plan Assessment/Plan Hospital Course (Demo Recall) # sepsis, respiratory - recurrent sepsis on 10/08/2018 due to aspiration pneumonia, HCAP, improved - possible aspiration pneumonia, recurrent pneumonia due to citrobacter, improved - acute on chronic hypoxic and hypercarbic respiratory failure - persistent leukocytosis likely due to steroid margination - h/o tracheostomy on 08/26/2018 - h/o "Increased mild left apical pneumothorax" per CXR on 09/19/2018; no pneumothorax mentioned on subsequent CXR - h/o pneumomediastinum - h/o VAT on 08/11/2018 - h/o asthma/COPD exacerbation - h/o acute tracheobronchitis - h/o MAC infection but CT chest did not demonstrate features suggestive of this per chart review - On this admission AFB smear x3 have been negative (10/21/18 0600, 10/21/18 1530, and 10/22/18 0040), pneumocystis jiroveci 10/18/18 not detected. - h/o HCAP due to citrobacter, based on resp culture on 09/13/2018 - h/o aspergillus growing out of resp culture per (pulm note by Dr. Lopez) on 07/25/2018 - h/o elevated 1,3 [id number]-[id number] level = 232 on 08/06/2018 - h/o MSSA septicemia # GI - diarrhea, C diff on 10/09/2018 was negative - h/o HSV esophagitis, took acyclovir x21 days from 08/26/2018 - h/o EGD, esophageal biopsy showed esophageal squamous mucosa showing acute inflammation, granulation tissue, and ulceration consistent with ulcerative esophagitis, rare multinucleated cells with morphology suggestive of vial cytopathic changes, No cardiac mucosa, intestinal metaplasia, dysplasia, or malignancy defined - GERD - PUD # renal/ - Hypokalemia, recurrent - CKD 2 - BPH # cardiac - tachycardia, persistent - ACD - HTN - HLD # endo - T2DM - Hgb A1c 7.2% - secondary adrenal insufficiency; steroid dependent - Hypoparathyroidism - Hypercalcemia - Pamidronate was ordered # neuro - toxic metabolic encephalopathy - Cervical myopathy - Severe cervical spinal cord stenosis with cord compression from C3-C5, s/p laminectomy in ~03/2018 - Chronic pain syndrome - Functional quadriplegia - Seizure d/o # other chronic conditions - RA with chronic steroid dependence - Immunocompromised status - Fibromyalgia - DDD - H/o multiple rib fracture - Pt completed: meropenem (09/25/2018-10/02/2018), vancomycin (09/25/18-09/28/18), pip/tazo (10/09/2018-10/15/2018) Recommendations: - Pending: AFB culture x3 (AFB smear x3 have resulted negative) particular to r/o mycobacterium avium intracellulaire, quantiferon TB gold, coccidioides serology - Continue Bactrim for pneumocystis PPX - Continue to monitor off other systemic antibiotic Consultation Date/Type/Reason Admit Date/Time Oct 09, 2018 at 12:16 cct 2 h Initial Consult Date 10/12/18 Requesting Provider: NOLA VIDAL MD Date/Time of Note DATE: 10/25/18 TIME: 12:58 Exam/Review of Systems Exam Vitals Vital Signs Date Temp Pulse Resp B/P (MAP) Pulse Ox O2 O2 Flow FiO2 Time Delivery Rate 10/25/18 99 12:00 10/25/18 98.1 26 111/62 96 Mechanical 12:00 (78) Ventilator 10/25/18 65 08:00 Intake and Output 10/24/18 10/24/18 10/25/18 1515:00 23:00 07:00 IntakeIntake Total 370 ml 370 ml 420 ml OutputOutput Total 150 ml 780 ml 845 ml BalanceBalance 220 ml -410 ml -425 ml Exam sleeping peacefully. d/w nursing Results Result Diagram: 10/24/18 0445 10/25/18 0500 Results 24hrs Laboratory Tests Test 10/24/18 14:21 10/24/18 19:56 10/25/18 01:51 10/25/18 05:00 Bedside Glucose 186 166 202 Sodium Level 133 L Potassium Level 4.3 Chloride Level 92 L Carbon Dioxide 34 H Level Anion Gap 7 Blood Urea 33 H Nitrogen Creatinine 0.44 L Est Glomerular > 60 Filtrat Rate mL/min Glucose Level 172 Calcium Level 7.0 L Total Bilirubin 0.1 L Direct Bilirubin 0.00 Indirect 0.1 Bilirubin Aspartate Amino 24 Transf (AST/SGOT ) Alanine 36 Aminotransferase (ALT/SGPT) Alkaline 118 Phosphatase Total Protein 5.3 L Albumin 2.8 L Globulin 2.50 Albumin/Globulin 1.12 Ratio Test 10/25/18 08:06 10/25/18 08:24 10/25/18 10:25 Bedside Glucose 144 Lab Scanned REFERENCE LAB Report Blood Gas Blood arterial Specimen Source Arterial Blood 10/25/2018 10:25 Date Drawn :00 AM Arterial Blood 7.355 pH (Temp corrected) Arterial Blood 56.7 H pCO2 (Temp correct) Arterial Blood 98.0 pO2 (Temp corrected) Arterial Blood 31.0 H HCO3 Arterial Blood 4.5 H Base Excess Arterial Blood 96.5 Oxygen Saturatio n [place] Test ACCEPTAB Arterial Blood Left Radial Gas Puncture Site Arterial 0.2 Blood Carboxyhem oglobin Arterial Blood 0.3 Methemoglobin Blood Gas A-a O2 303.8 H Differential Oxyhemoglobin 96.0 Percent Blood Gas 37.0 Temperature Blood Gas 20.0 Respiration Rate Blood Gas Actual 22 Respiration Rate Blood Gas VENT - AC Modality FiO2 65.0 Blood Gas Tidal 400.0 Volume Blood Gas Low 5.0 PEEP Setting Blood Gas TM Notified Whom Blood Gas 10/25/2018 10:33 Notified Time :00 AM Medications Medication Current Medications Acetaminophen (Tylenol Liquid) 650 mg Q4H PRN GTB MILD PAIN(1-3)OR ELEVATED TE MP Last administered on 10/16/18at 07:52; Admin Dose 650 MG; Start 10/09/18 at 14:00 Al Hydrox/Mg Hydrox/Simethicone (Mag-Al Plus) 15 ml Q6H PRN PO GASTROINTESTINAL UPSET Last administered on 10/17/18at 13:18; Admin Dose 15 ML; Start 10/09/18 at 14:00 Eye Lubricant (Artificial Tears Oph) 1 drop Q6H PRN BOTH EYES DRY EYES; Start 10/09/18 at 14:00 Bisacodyl (Dulcolax Supp) 10 mg DAILY PRN [place] CONSTIPATION; Start 10/09/18 at 14:00 Clonidine (Catapres) 0.1 mg DAILY PRN GTB ELEVATED BLOOD PRESSURE; Start 10/09/18 at 14:00 Diltiazem HCl (Cardizem Iv) 5 mg Q4 PRN IV ELEVATED HEART RATE Last administe red on 10/18/18at 01:09; Admin Dose 5 MG; Start 10/09/18 at 14:00 Diphenhydramine HCl (Benadryl Liquid Cup) 25 mg Q6 PRN GTB ITCHING Last administered on 10/22/18 20:25; Admin Dose 25 MG; Start 10/09/18 at 14:00 Duloxetine HCl (Cymbalta) 30 mg DAILY PO Last administered on 10/25/18 08:37; Admin Dose 30 MG; Start 10/10/18 at 09:00 Epoetin Arpan (Epogen (Esrd)) 10,000 units TuSa@1300 SC Last administered on 10/22/18 13:05; Admin Dose 10,000 UNITS; Start 10/11/18 at 13:00 Gabapentin (Neurontin Liquid) 400 mg Q8 GTB Last administered on 10/25/18 05:08; Admin Dose 400 MG; Start 10/09/18 at 15:30 Hydralazine HCl (Apresoline) 10 mg Q4H PRN IV ELEVATED BLOOD PRESSURE; Start 10/09/18 at 14:00 Hydroxychloroquine Sulfate (Plaquenil) 200 mg BID PO Last administered on 10/25/18 08:34; Admin Dose 200 MG; Start 10/09/18 at 21:00 Diagnostic Test (Pha) (Accu-Chek) 1 ea 02 XX Last administered on 10/25/18 01:46; Admin Dose 1 EA; Start 10/10/18 at 02:00 Insulin Aspart (Novolog Insulin Pen) NOVOLOG *CUSTOM* ALGORITHM Q6H SC Last administered on 10/25/18 01:53; Admin Dose 2 UNIT; Start 10/09/18 at 14:00 Lactobacillus Acidophilus (Florajen3 Capsule) 1 each BID GTB Last administered on 10/25/18 08:38; Admin Dose 1 EACH; Start 10/09/18 at 21:00 Lansoprazole (Prevacid) 30 mg BID@06,18 GTB Last administered on 10/25/18 05:08; Admin Dose 30 MG; Start 10/09/18 at 18:00 Levetiracetam (Keppra Liquid) 500 mg BID GTB Last administered on 10/25/18 08:39; Admin Dose 500 MG; Start 10/09/18 at 21:00 Magnesium Oxide (Mag-Ox 400) 400 mg BID GTB Last administered on 10/25/18 08:38; Admin Dose 400 MG; Start 10/09/18 at 21:00 Metoclopramide HCl (Reglan) 10 mg TID IV Last administered on 10/25/18at 08:39; Admin Dose 10 MG; Start 10/09/18 at 21:00 Miconazole Nitrate (Miconazole 2% Cr) 1 applic BID TOP Last administered on 10/25/18at 08:40; Admin Dose 1 APPLIC; Start 10/09/18 at 21:00 Miconazole Nitrate (Miconazole 2% Cr) 1 applic Q12 PRN TOP rash; Start 10/09/18 at 14:00 Ondansetron HCl (Zofran Inj) 4 mg Q4H PRN IV NAUSEA AND/OR VOMITING Last administered on 10/19/18at 16:37; Admin Dose 4 MG; Start 10/09/18 at 14:00 Polyethylene Glycol (Miralax) 17 gm DAILY PRN GTB CONSTIPATION; Start 10/09/18 at 14:00 Senna (Senokot) 2 tab Q8 PRN PO CONSTIPATION; Start 10/09/18 at 14:00 Trimethoprim/ Sulfamethoxazole (Bactrim Susp) 40 ml DAILY GTB Last administered on 10/25/18at 08:34; Admin Dose 40 ML; Start 10/10/18 at 09:00 Zolpidem Tartrate (Ambien) 5 mg HS PRN PO INSOMNIA Last administered on 10/21/18at 02:34; Admin Dose 5 MG; Start 10/09/18 at 14:00 Miscellaneous Information 1 ea NOTE XX ; Start 10/09/18 at 15:00 Glucose (Glutose) 15 gm Q15M PRN PO DECREASED GLUCOSE; Start 10/09/18 at 15:00 Glucose (Glutose) 22.5 gm Q15M PRN PO DECREASED GLUCOSE; Start 10/09/18 at 15:00 Dextrose (D50w Syringe) 25 ml Q15M PRN IV DECREASED GLUCOSE; Start 10/09/18 at 15:00 Dextrose (D50w Syringe) 50 ml Q15M PRN IV DECREASED GLUCOSE; Start 10/09/18 at 15:00 Glucagon (Glucagen) 1 mg Q15M PRN IM DECREASED GLUCOSE; Start 10/09/18 at 15:00 Glucose (Glutose) 15 gm Q15M PRN BUCCAL DECREASED GLUCOSE; Start 10/09/18 at 15:00 Sodium Chloride 500 ml @ 500 mls/hr Q1H PRN IV BLOOD PRESSURE SUPPORT Last administered on 10/10/18 07:59; Admin Dose 500 MLS/HR; Start 10/09/18 at 19:30 Albuterol (Ventolin Hfa) 4 puff Q6H RESP THERAPY INH Last administered on 10/25/18 08:31; Admin Dose 4 PUFF; Start 10/10/18 at 02:00 Ipratropium [place] (Atrovent Hfa) 4 puff Q6H RESP THERAPY INH Last administered on 10/25/18 08:31; Admin Dose 4 PUFF; Start 10/10/18 at 02:00 Methylprednisolone Sodium Succinate (Solu-Medrol) 40 mg Q8 IV Last administered on 10/25/18 05:08; Admin Dose 40 MG; Start 10/14/18 at 14:00 Lorazepam (Ativan) 1 mg Q4H PRN GTB AGITATION/ANXIETY Last administered on 10/19/18 17:35; Admin Dose 1 MG; Start 10/14/18 at 13:00 Lisinopril (Zestril) 2.5 mg DAILY PO Last administered on 10/25/18 08:35; Admin Dose 2.5 MG; Start 10/15/18 at 09:00 Linagliptin (Tradjenta) 5 mg DAILY PO Last administered on 10/25/18 08:37; Admin Dose 5 MG; Start 10/16/18 at 10:30 Fentanyl (Duragesic 50 Mcg/Hr Patch) 1 patch Q72H TRANSDERM Last administered on 10/23/18 21:32; Admin Dose 1 PATCH; Start 10/17/18 at 20:30 Lorazepam (Ativan) 2 mg Q6H GTB Last administered on 10/25/18 08:38; Admin Dose 2 MG; Start 10/20/18 at 15:00 Quetiapine Fumarate (Seroquel) 100 mg BID GTB Last administered on 10/25/18 08:37; Admin Dose 100 MG; Start 10/21/18 at 21:00 Hydromorphone HCl (Dilaudid) 6 mg Q4H PRN PO MODERATE PAIN LEVEL 7-10 Last administered on 10/25/18 08:36; Admin Dose 6 MG; Start 10/21/18 at 22:00 Carvedilol (Coreg) 12.5 mg BID PO Last administered on 10/25/18at 08:36; Admin Dose 12.5 MG; Start 10/23/18 at 21:00 Calcium Carbonate (Ca Carbonate) 1,250 mg QID GTB Last administered on 10/25/18at 08:39; Admin Dose 1,250 MG; Start 10/24/18 at 13:00 Calcitriol (Rocaltrol) 1 mcg BID PO ; Start 10/25/18 at 21:00 CAMELIA VALENTINE MD Oct 25, 2018 13:04
--- NOTE | 2018-10-25 19:06 | CONS ---
Assessment/Plan Assessment/Plan Assessment/Plan (Daily) Interval History- No acute events overnight, tolerating tube feeds well, no residue, on airborne precautions, being worked up for TB 1. Respiratory failure secondary to pneumonia versus interstitial pneumonitis from rheumatoid arthritis versus mild aspiration. -on Bactrim 2. Severe rheumatoid arthritis. 3. Quadriplegia. 4. Adrenal insufficiency. 5. Gastroparesis. -Reglan, denies nausea 6. Hypothyroidism. 7. Chronic pain syndrome. 8. Hypertension. 9. Diarrhea -VRE in stool -FOB neg 10. Leukocytosis secondary to steroids 11.ARDS Swallow eval: Impression: Oropharyngeal dysphagia associated with reduced oropharyngeal strength/coordination, delayed timing of swallowing and reduced coordination of breath with swallow safety impacting swallow safety. Pt is not safe to initiate p.o intake and is at high risk of aspiration. Recommendation: 1. Initiate dysphagia therapy 3-5x per week for 1-2 weeks 2. Keep NPO+PEG tube feeds for primary means of nutrition/hydration/medication delivery 3. Anticipate need for in-line PMV evaluation one respiratory status improves and is stabilized 4. ongoing assessment and BOT and oropharyngeal strengthening exercises, aswell as pt/family education and counseling 5. Anticipate need for MBSS prior to initiation of p.o intake PLAN: ID recommendations. Patient is on Bactrim Continue present care Nothing by mouth per swallow eval results Continue with tube feeds check residuals q 4 hours Continue Reglan. Aspiration precautions. So far there is no evidence of aspiration. 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 Consultation Date/Type/Reason Admit Date/Time Oct 09, 2018 at 12:16 Initial Consult Date 10/12/18 Requesting Provider: NOLA VIDAL MD Date/Time of Note DATE: 10/25/18 TIME: 19:05 24 HR Interval Summary Constitutional: no complaints, improved Exam/Review of Systems Exam Vitals Vital Signs Date Temp Pulse Resp B/P (MAP) Pulse Ox O2 O2 Flow FiO2 Time Delivery Rate 10/25/18 102 23 107/64 95 Mechanical 18:00 (78) Ventilator 10/25/18 60 17:00 10/25/18 98.5 16:00 Intake and Output 10/24/18 10/24/18 10/25/18 1515:00 23:00 07:00 IntakeIntake Total 370 ml 370 ml 420 ml OutputOutput Total 150 ml 780 ml 845 ml BalanceBalance 220 ml -410 ml -425 ml Constitutional: alert, oriented Psych: anxiety Respiratory: diminished breath sounds Cardiovascular: regular rate and rhythm, nl pulses Gastrointestinal: soft, nl liver, spleen, non-tender Musculoskeletal: muscle weakness Extremities: normal pulses Results Result Diagram: 10/24/18 0445 10/25/18 0500 Results 24hrs Laboratory Tests Test 10/24/18 19:56 10/25/18 01:51 10/25/18 05:00 10/25/18 08:06 Bedside Glucose 166 202 144 Sodium Level 133 L Potassium Level 4.3 Chloride Level 92 L Carbon Dioxide 34 H Level Anion Gap 7 Blood Urea 33 H Nitrogen Creatinine 0.44 L Est Glomerular > 60 Filtrat Rate mL/min Glucose Level 172 Calcium Level 7.0 L Total Bilirubin 0.1 L Direct Bilirubin 0.00 Indirect 0.1 Bilirubin Aspartate Amino 24 Transf (AST/SGOT ) Alanine 36 Aminotransferase (ALT/SGPT) Alkaline 118 Phosphatase Total Protein 5.3 L Albumin 2.8 L Globulin 2.50 Albumin/Globulin 1.12 Ratio Test 10/25/18 08:24 10/25/18 10:25 10/25/18 13:04 Lab Scanned REFERENCE LAB Report Blood Gas Blood arterial Specimen Source Arterial Blood 10/25/2018 10:25 Date Drawn :00 AM Arterial Blood 7.355 pH (Temp corrected) Arterial Blood 56.7 H pCO2 (Temp correct) Arterial Blood 98.0 pO2 (Temp corrected) Arterial Blood 31.0 H HCO3 Arterial Blood 4.5 H Base Excess Arterial Blood 96.5 Oxygen Saturatio n [place] Test ACCEPTAB Arterial Blood Left Radial Gas Puncture Site Arterial 0.2 Blood Carboxyhem oglobin Arterial Blood 0.3 Methemoglobin Blood Gas A-a O2 303.8 H Differential Oxyhemoglobin 96.0 Percent Blood Gas 37.0 Temperature Blood Gas 20.0 Respiration Rate Blood Gas Actual 22 Respiration Rate Blood Gas VENT - AC Modality FiO2 65.0 Blood Gas Tidal 400.0 Volume Blood Gas Low 5.0 PEEP Setting Blood Gas TM Notified Whom Blood Gas 10/25/2018 10:33 Notified Time :00 AM Bedside Glucose 147 Medications Medication Current Medications Acetaminophen (Tylenol Liquid) 650 mg Q4H PRN GTB MILD PAIN(1-3)OR ELEVATED TEMP Last administered on 10/16/18 07:52; Admin Dose 650 MG; Start 10/09/18 at 14:00 Al Hydrox/Mg Hydrox/Simethicone (Mag-Al Plus) 15 ml Q6H PRN PO GASTROINTESTINAL UPSET Last administered on 10/17/18 13:18; Admin Dose 15 ML; Start 10/09/18 at 14:00 Eye Lubricant (Artificial Tears Oph) 1 drop Q6H PRN BOTH EYES DRY EYES; Start 10/09/18 at 14:00 Bisacodyl (Dulcolax Supp) 10 mg DAILY PRN [place] CONSTIPATION; Start 10/09/18 at 14:00 Clonidine (Catapres) 0.1 mg DAILY PRN GTB ELEVATED BLOOD PRESSURE; Start 10/09/18 at 14:00 Diltiazem HCl (Cardizem Iv) 5 mg Q4 PRN IV ELEVATED HEART RATE Last admi nistered on 10/18/18 01:09; Admin Dose 5 MG; Start 10/09/18 at 14:00 Diphenhydramine HCl (Benadryl Liquid Cup) 25 mg Q6 PRN GTB ITCHING Last administered on 10/22/18 20:25; Admin Dose 25 MG; Start 10/09/18 at 14:00 Duloxetine HCl (Cymbalta) 30 mg DAILY PO Last administered on 10/25/18 08:37; Admin Dose 30 MG; Start 10/10/18 at 09:00 Epoetin Arpan (Epogen (Esrd)) 10,000 units TuSa@1300 SC Last administered on 10/25/18 13:00; Admin Dose 10,000 UNITS; Start 10/11/18 at 13:00 Gabapentin (Neurontin Liquid) 400 mg Q8 GTB Last administered on 10/25/18 13:00; Admin Dose 400 MG; Start 10/09/18 at 15:30 Hydralazine HCl (Apresoline) 10 mg Q4H PRN IV ELEVATED BLOOD PRESSURE; Start 10/09/18 at 14:00 Hydroxychloroquine Sulfate (Plaquenil) 200 mg BID PO Last administered on 10/25/18 08:34; Admin Dose 200 MG; Start 10/09/18 at 21:00 Diagnostic Test (Pha) (Accu-Chek) 1 02 XX Last administered on 10/25/18 01:46; Admin Dose 1 EA; Start 10/10/18 at 02:00 Insulin Aspart (Novolog Insulin Pen) NOVOLOG *CUSTOM* ALGORITHM Q6H SC Last administered on 10/25/18 01:53; Admin Dose 2 UNIT; Start 10/09/18 at 14:00 Lactobacillus Acidophilus (Florajen3 Capsule) 1 each BID GTB Last administered on 10/25/18 08:38; Admin Dose 1 EACH; Start 10/09/18 at 21:00 Lansoprazole (Prevacid) 30 mg BID@,18 GTB Last administered on 10/25/18 18:16; Admin Dose 30 MG; Start 10/09/18 at 18:00 Levetiracetam (Keppra Liquid) 500 mg BID GTB Last administered on 10/25/18 08:39; Admin Dose 500 MG; Start 10/09/18 at 21:00 Magnesium Oxide (Mag-Ox 400) 400 mg BID GTB Last administered on 10/25/18 08:38; Admin Dose 400 MG; Start 10/09/18 at 21:00 Metoclopramide HCl (Reglan) 10 mg TID IV Last administered on 10/25/18 12:59; Admin Dose 10 MG; Start 10/09/18 at 21:00 Miconazole Nitrate (Miconazole 2% Cr) 1 applic BID TOP Last administered on 10/25/18 08:40; Admin Dose 1 APPLIC; Start 10/09/18 at 21:00 Miconazole Nitrate (Miconazole 2% Cr) 1 applic Q12 PRN TOP rash; Start 10/09/18 at 14:00 Ondansetron HCl (Zofran Inj) 4 mg Q4H PRN IV NAUSEA AND/OR VOMITING Last administered on 10/19/18 16:37; Admin Dose 4 MG; Start 10/09/18 at 14:00 Polyethylene Glycol (Miralax) 17 gm DAILY PRN GTB CONSTIPATION; Start 10/09/18 at 14:00 Senna (Senokot) 2 tab Q8 PRN PO CONSTIPATION; Start 10/09/18 at 14:00 Trimethoprim/ Sulfamethoxazole (Bactrim Susp) 40 ml DAILY GTB Last administered on 10/25/18 08:34; Admin Dose 40 ML; Start 10/10/18 at 09:00 Zolpidem Tartrate (Ambien) 5 mg HS PRN PO INSOMNIA Last administered on 10/21/18 02:34; Admin Dose 5 MG; Start 10/09/18 at 14:00 Miscellaneous Information 1 ea NOTE XX ; Start 10/09/18 at 15:00 Glucose (Glutose) 15 gm Q15M PRN PO DECREASED GLUCOSE; Start 10/09/18 at 15:00 Glucose (Glutose) 22.5 gm Q15M PRN PO DECREASED GLUCOSE; Start 10/09/18 at 15:00 Dextrose (D50w Syringe) 25 ml Q15M PRN IV DECREASED GLUCOSE; Start 10/09/18 at 15:00 Dextrose (D50w Syringe) 50 ml Q15M PRN IV DECREASED GLUCOSE; Start 10/09/18 at 15:00 Glucagon (Glucagen) 1 mg Q15M PRN IM DECREASED GLUCOSE; Start 10/09/18 at 15:00 Glucose (Glutose) 15 gm Q15M PRN BUCCAL DECREASED GLUCOSE; Start 10/09/18 at 15:00 Sodium Chloride 500 ml @ 500 mls/hr Q1H PRN IV BLOOD PRESSURE SUPPORT Last administered on 10/10/18at 07:59; Admin Dose 500 MLS/HR; Start 10/09/18 at 19:30 Albuterol (Ventolin Hfa) 4 puff Q6H RESP THERAPY INH Last administered on 10/25/18 13:27; Admin Dose 4 PUFF; Start 10/10/18 at 02:00 Ipratropium [place] (Atrovent Hfa) 4 puff Q6H RESP THERAPY INH Last admini stered on 10/25/18 13:27; Admin Dose 4 PUFF; Start 10/10/18 at 02:00 Methylprednisolone Sodium Succinate (Solu-Medrol) 40 mg Q8 IV Last administered on 10/25/18 13:00; Admin Dose 40 MG; Start 10/14/18 at 14:00 Lorazepam (Ativan) 1 mg Q4H PRN GTB AGITATION/ANXIETY Last administered on 10/19/18 17:35; Admin Dose 1 MG; Start 10/14/18 at 13:00 Lisinopril (Zestril) 2.5 mg DAILY PO Last administered on 10/25/18 08:35; Admin Dose 2.5 MG; Start 10/15/18 at 09:00 Linagliptin (Tradjenta) 5 mg DAILY PO Last administered on 10/25/18 08:37; Admin Dose 5 MG; Start 10/16/18 at 10:30 Fentanyl (Duragesic 50 Mcg/Hr Patch) 1 patch Q72H TRANSDERM Last administered on 10/23/18 21:32; Admin Dose 1 PATCH; Start 10/17/18 at 20:30 Lorazepam (Ativan) 2 mg Q6H GTB Last administered on 10/25/18 15:54; Admin Do se 2 MG; Start 10/20/18 at 15:00 Quetiapine Fumarate (Seroquel) 100 mg BID GTB Last administered on 10/25/18 08:37; Admin Dose 100 MG; Start 10/21/18 at 21:00 Hydromorphone HCl (Dilaudid) 6 mg Q4H PRN PO MODERATE PAIN LEVEL 7-10 Last administered on 10/25/18 15:54; Admin Dose 6 MG; Start 10/21/18 at 22:00 Carvedilol (Coreg) 12.5 mg BID PO Last administered on 10/25/18 08:36; Admin Dose 12.5 MG; Start 10/23/18 at 21:00 Calcium Carbonate (Ca Carbonate) 1,250 mg QID GTB Last administered on 10/14 18:16; Admin Dose 1,250 MG; Start 10/24/18 at 13:00 Calcitriol (Rocaltrol) 1 mcg BID PO ; Start 10/25/18 at 21:00 BHAVIK RUBIO MD Oct 25, 2018 19:06
[2018-10-26] VITALS (34 sets, daily range): BP systolic 79–114; BP diastolic 52–79; PULSE 88–110; RESP 16–44
[2018-10-26] MEDS: ALBUTEROL HFA 8 GM INHALER INH SCH ×4 (01:20→19:22)
[2018-10-26] MEDS: IPRATROPIUM (HFA) 12.9 GM INHALER INH SCH ×4 (01:20→19:23)
[2018-10-26] MEDS: ACCU-CHEK XX SCH (01:47)
[2018-10-26] MEDS: INSULIN ASPART [NOVOLOG] 3 ML PEN SC SCH ×4 (01:57→21:05)
[2018-10-26] MEDS: LORAZEPAM 1 MG TAB GTB SCH ×4 (03:18→21:04)
[2018-10-26] MEDS: HYDROmorphONE 2 MG TAB PO PRN ×3 (03:18→18:13)
[2018-10-26] MEDS: GABAPENTIN (50 MG/ML PO SYG) GTB SCH ×3 (05:45→20:53)
[2018-10-26] MEDS: METHYLPREDNISOLONE 40 MG INJ IV SCH ×3 (05:45→21:04)
[2018-10-26] MEDS: LANSOPRAZOLE 30 MG CAP GTB SCH ×2 (05:45→18:13)
--- NOTE | 2018-10-26 08:29 | PN ---
DATE: 10/26/2018 SUBJECTIVE: The patient remains on high FIO2s full ventilator support. No significant change. OBJECTIVE: VITAL SIGNS: Blood pressure is 95/62, respirations 16, pulse 92, temperature 99.0. HEENT: Head is normocephalic. NECK: Supple. HEART: Regular rate. LUNGS: Show diminished breath sounds at the base. ABDOMEN: Soft, nontender to palpation. No rebound or guarding. EXTREMITIES: Negative for clubbing, cyanosis, no edema. DERMATOLOGIC: No rashes. MUSCULOSKELETAL: No joint effusion. NEUROLOGIC: No change in exam. MEDICATIONS: Reviewed. LABORATORY DATA: Shows sodium 132, potassium 4.6, chloride 92, BUN 35, creatinine 0.40, calcium 7.2. ABG was reviewed. White count 19.1, hemoglobin 8.9, platelet count is 319. ASSESSMENT AND PLAN: 1. Nonoliguric acute kidney injury. Etiology is secondary to hemodynamics. Renal function is impro lori. Continue to monitor. 2. Hyponatremia. Etiology may be secondary to adrenal insufficiency. Plan is to deescalate free wa ter flushes. Will monitor sodium levels closely. 3. Hypomagnesemia. Continue to monitor and replete as needed. 4. Mineral bone disorder. Monitor calcium and phosphatase levels. 5. Ventilatory-dependent respiratory failure. Vent settings and ABG reviewed. Continue to monitor. 6. Adrenal insufficiency. Continue Cortef. 7. Anemia. Monitor hemoglobin and hematocrit levels. 8. Dysphagia. Continue tube feeding. 9. Sepsis secondary to pneumonia. The patient is completing antibiotic course. 10. Hypertension. 11. Tachyarrhythmia. Continue current treatment plan. 12. Seizure disorder. Continue medical management. 13. Anxiety disorder. Dictated By: UNA HONG/EFREN Conf#: [id number] DID#: [id number] CC: NOLA VIDAL MD;*End*
--- NOTE | 2018-10-26 08:56 | CONS ---
Assessment/Plan Assessment/Plan Hospital Course (Demo Recall) 53 yo male pt in [place] transferred to ICU for increased O2 demands Interval History- No acute events overnight, tolerating tube feeds well, no residue, FiO2 50%. Diarrhea improved. Neg AFB sputum. Of airborne precautions. 1. Respiratory failure secondary to pneumonia versus interstitial pneumonitis from rheumatoid arthritis versus mild aspiration. -on Bactrim 2. Severe rheumatoid arthritis. 3. Quadriplegia. 4. Adrenal insufficiency. 5. Gastroparesis. -Reglan, denies nausea 6. Hypothyroidism. 7. Chronic pain syndrome. 8. Hypertension. 9. 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 Leukocytosis secondary to steroids 11.ARDS Swallow eval: Impression: Oropharyngeal dysphagia associated with reduced oropharyngeal strength/coordination, delayed timing of swallowing and reduced coordination of breath with swallow safety impacting swallow safety. Pt is not safe to initiate p.o intake and is at high risk of aspiration. Recommendation: 1. Initiate dysphagia therapy 3-5x per week for 1-2 weeks 2. Keep NPO+PEG tube feeds for primary means of nutrition/hydration/medication delivery 3. Anticipate need for in-line PMV evaluation one respiratory status improves and is stabilized 4. ongoing assessment and BOT and oropharyngeal strengthening exercises, aswell as pt/family education and counseling 5. Anticipate need for MBSS prior to initiation of p.o intake PLAN: ID recommendations. Patient is on Bactrim Continue present care Nothing by mouth per swallow eval results Continue with tube feeds check residuals q 4 hours Continue Reglan. Aspiration precautions. So far there is no evidence of aspiration. If anytime there is evidence of aspiration will convert G-tube to J-tube Pt examined and plan of care discussed with Dr. Minaya Consultation Date/Type/Reason Admit Date/Time Oct 09, 2018 at 12:16 Initial Consult Date 10/09/18 Requesting Provider: NOLA VIDAL MD Date/Time of Note DATE: 10/26/18 TIME: 07:03 Exam/Review of Systems Exam Vitals Vital Signs Date Temp Pulse Resp B/P (MAP) Pulse Ox O2 O2 Flow FiO2 Time Delivery Rate 10/26/18 92 16 95/62 (73) 97 Mechanical 06:00 Ventilator 10/26/18 60 05:11 10/26/18 99.0 04:00 Intake and Output 10/25/18 10/25/18 10/26/18 1515:00 23:00 07:00 IntakeIntake Total 370 ml 370 ml 380 ml OutputOutput Total 630 ml 370 ml 300 ml BalanceBalance -260 ml 0 ml 80 ml Results Result Diagram: 10/26/18 0449 10/26/18 0449 Results 24hrs Laboratory Tests Test 10/25/18 08:06 10/25/18 08:24 10/25/18 10:25 10/25/18 13:04 Bedside Glucose 144 147 Lab Scanned REFERENCE LAB Report Blood Gas Blood arterial Specimen Source Arterial Blood 10/25/2018 10:25 Date Drawn :00 AM Arterial Blood 7.355 pH (Temp corrected) Arterial Blood 56.7 H pCO2 (Temp correct) Arterial Blood 98.0 pO2 (Temp corrected) Arterial Blood 31.0 H HCO3 Arterial Blood 4.5 H Base Excess Arterial Blood 96.5 Oxygen Saturatio n [place] Test ACCEPTAB Arterial Blood Left Radial Gas Puncture Site Arterial 0.2 Blood Carboxyhem oglobin Arterial Blood 0.3 Methemoglobin Blood Gas A-a O2 303.8 H Differential Oxyhemoglobin 96.0 Percent Blood Gas 37.0 Temperature Blood Gas 20.0 Respiration Rate Blood Gas Actual 22 Respiration Rate Blood Gas VENT - AC Modality FiO2 65.0 Blood Gas Tidal 400.0 Volume Blood Gas Low 5.0 PEEP Setting Blood Gas TM Notified Whom Blood Gas 10/25/2018 10:33 Notified Time :00 AM Test 10/25/18 21:24 10/26/18 01:46 10/26/18 04:49 Bedside Glucose 174 197 White Blood 19.1 #H Count Red Blood Count 3.06 L Hemoglobin 8.9 L Hematocrit 28.8 L Mean Corpuscular 94.1 Volume Mean Corpuscular 29.1 Hemoglobin Mean Corpuscular 30.9 L Hemoglobin Dawn nt Red Cell 18.0 H Distribution Width Platelet Count 319 # Mean Platelet 11.5 H Volume Immature 3.200 H Granulocytes % Neutrophils % 83.8 H Lymphocytes % 3.0 L Monocytes % 9.8 Eosinophils % 0.0 Basophils % 0.2 Nucleated Red 0.0 Blood Cells % Immature 0.620 H Granulocytes # Neutrophils # 16.0 H Lymphocytes # 0.6 L Monocytes # 1.9 H Eosinophils # 0.0 Basophils # 0.0 Nucleated Red 0.0 Blood Cells # Sodium Level 132 L Potassium Level 4.6 Chloride Level 92 L Carbon Dioxide 36 H Level Anion Gap 4 L Blood Urea 35 H Nitrogen Creatinine 0.40 L Est Glomerular > 60 Filtrat Rate mL/min Glucose Level 143 Calcium Level 7.2 L Ionized Calcium 1.0 L (Measured) Phosphorus Level 3.8 Magnesium Level 1.7 Medications Medication Current Medications Acetaminophen (Tylenol Liquid) 650 mg Q4H PRN GTB MILD PAIN(1-3)OR ELEVATED TEMP Last administered on 10/16/18 07:52; Admin Dose 650 MG; Start 10/09/18 at 14:00 Al Hydrox/Mg Hydrox/Simethicone (Mag-Al Plus) 15 ml Q6H PRN PO GASTROINTESTINAL UPSET Last administered on 10/17/18 13:18; Admin Dose 15 ML; Start 10/09/18 at 14:00 Eye Lubricant (Artificial Tears Oph) 1 drop Q6H PRN BOTH EYES DRY EYES; Start 10/09/18 at 14:00 Bisacodyl (Dulcolax Supp) 10 mg DAILY PRN [place] CONSTIPATION; Start 10/09/18 at 14:00 Clonidine (Catapres) 0.1 mg DAILY PRN GTB ELEVATED BLOOD PRESSURE; Start 10/09/18 at 14:00 Diltiazem HCl (Cardizem Iv) 5 mg Q4 PRN IV ELEVATED HEART RATE Last administered on 10/18/18 01:09; Admin Dose 5 MG; Start 10/09/18 at 14:00 Diphenhydramine HCl (Benadryl Liquid Cup) 25 mg Q6 PRN GTB ITCHING Last administered on 10/22/18 20:25; Admin Dose 25 MG; Start 10/09/18 at 14:00 Duloxetine HCl (Cymbalta) 30 mg DAILY PO Last administered on 10/25/18 08:37; Admin Dose 30 MG; Start 10/10/18 at 09:00 Epoetin Arpan (Epogen (Esrd)) 10,000 units TuSa@1300 SC Last administered on 10/25/18 13:00; Admin Dose 10,000 UNITS; Start 10/11/18 at 13:00 Gabapentin (Neurontin Liquid) 400 mg Q8 GTB Last administered on 10/26/18 05:45; Admin Dose 400 MG; Start 10/09/18 at 15:30 Hydralazine HCl (Apresoline) 10 mg Q4H PRN IV ELEVATED BLOOD PRESSURE; Start 10/09/18 at 14:00 Hydroxychloroquine Sulfate (Plaquenil) 200 mg BID PO Last administered on 10/25/18 20:53; Admin Dose 200 MG; Start 10/09/18 at 21:00 Diagnostic Test (Pha) (Accu-Chek) 1 ea 02 XX Last administered on 10/25/18 01:46; Admin Dose 1 EA; Start 10/10/18 at 02:00 Insulin Aspart (Novolog Insulin Pen) NOVOLOG *CUSTOM* ALGORITHM Q6H SC Last a dministered on 10/26/18 01:57; Admin Dose 1 UNIT; Start 10/09/18 at 14:00 Lactobacillus Acidophilus (Florajen3 Capsule) 1 each BID GTB Last administered on 10/25/18 21:02; Admin Dose 1 EACH; Start 10/09/18 at 21:00 Lansoprazole (Prevacid) 30 mg BID@06,18 GTB Last administered on 10/26/18 05:45; Admin Dose 30 MG; Start 10/09/18 at 18:00 Levetiracetam (Keppra Liquid) 500 mg BID GTB Last administered on 10/25/18 20:52; Admin Dose 500 MG; Start 10/09/18 at 21:00 Magnesium Oxide (Mag-Ox 400) 400 mg BID GTB Last administered on 10/25/18 20:52; Admin Dose 400 MG; Start 10/09/18 at 21:00 Metoclopramide HCl (Reglan) 10 mg TID IV Last administered on 10/25/18 20:52; Admin Dose 10 MG; Start 10/09/18 at 21:00 Miconazole Nitrate (Miconazole 2% Cr) 1 applic BID TOP Last administered on 10/25/18 20:54; Admin Dose 1 APPLIC; Start 10/09/18 at 21:00 Miconazole Nitrate (Miconazole 2% Cr) 1 applic Q12 PRN TOP rash; Start 10/09/18 at 14:00 Ondansetron HCl (Zofran Inj) 4 mg Q4H PRN IV NAUSEA AND/OR VOMITING Last administered on 10/19/18 16:37; Admin Dose 4 MG; Start 10/09/18 at 14:00 Polyethylene Glycol (Miralax) 17 gm DAILY PRN GTB CONSTIPATION; Start 10/09/18 at 14:00 Senna (Senokot) 2 tab Q8 PRN PO CONSTIPATION; Start 10/09/18 at 14:00 Trimethoprim/ Sulfamethoxazole (Bactrim Susp) 40 ml DAILY GTB Last administered on 10/25/18 08:34; Admin Dose 40 ML; Start 10/10/18 at 09:00 Zolpidem Tartrate (Ambien) 5 mg HS PRN PO INSOMNIA Last administered on 10/21/18 02:34; Admin Dose 5 MG; Start 10/09/18 at 14:00 Miscellaneous Information 1 ea NOTE XX ; Start 10/09/18 at 15:00 Glucose (Glutose) 15 gm Q15M PRN PO DECREASED GLUCOSE; Start 10/09/18 at 15:00 Glucose (Glutose) 22.5 gm Q15M PRN PO DECREASED GLUCOSE; Start 10/09/18 at 15:00 Dextrose (D50w Syringe) 25 ml Q15M PRN IV DECREASED GLUCOSE; Start 10/09/18 at 15:00 Dextrose (D50w Syringe) 50 ml Q15M PRN IV DECREASED GLUCOSE; Start 10/09/18 at 15:00 Glucagon (Glucagen) 1 mg Q15M PRN IM DECREASED GLUCOSE; Start 10/09/18 at 15:00 Glucose (Glutose) 15 gm Q15M PRN BUCCAL DECREASED GLUCOSE; Start 10/09/18 at 15:00 Sodium Chloride 500 ml @ 500 mls/hr Q1H PRN IV BLOOD PRESSURE SUPPORT Last administered on 10/10/18at 07:59; Admin Dose 500 MLS/HR; Start 10/09/18 at 19:30 Albuterol (Ventolin Hfa) 4 puff Q6H RESP THERAPY INH Last administered on 10/26/18 01:20; Admin Dose 4 PUFF; Start 10/10/18 at 02:00 Ipratropium [place] (Atrovent Hfa) 4 puff Q6H RESP THERAPY INH Last administered on 10/26/18 01:20; Admin Dose 4 PUFF; Start 10/10/18 at 02:00 Methylprednisolone Sodium Succinate (Solu-Medrol) 40 mg Q8 IV Last administered on 3/13/19at 05:45; Admin Dose 40 MG; Start 10/14/18 at 14:00 Lorazepam (Ativan) 1 mg Q4H PRN GTB AGITATION/ANXIETY Last administered on 10/19/18 17:35; Admin Dose 1 MG; Start 10/14/18 at 13:00 Lisinopril (Zestril) 2.5 mg DAILY PO Last administered on 10/25/18 08:35; Admin Dose 2.5 MG; Start 10/15/18 at 09:00 Linagliptin (Tradjenta) 5 mg DAILY PO Last administered on 10/25/18 08:37; Ad min Dose 5 MG; Start 10/16/18 at 10:30 Fentanyl (Duragesic 50 Mcg/Hr Patch) 1 patch Q72H TRANSDERM Last administered on 10/23/18 21:32; Admin Dose 1 PATCH; Start 10/17/18 at 20:30 Lorazepam (Ativan) 2 mg Q6H GTB Last administered on 10/26/18 03:18; Admin Dose 2 MG; Start 10/20/18 at 15:00 Quetiapine Fumarate (Seroquel) 100 mg BID GTB Last administered on 10/25/18 21:02; Admin Dose 100 MG; Start 10/21/18 at 21:00 Hydromorphone HCl (Dilaudid) 6 mg Q4H PRN PO MODERATE PAIN LEVEL 7-10 Last administered on 10/26/18 03:18; Admin Dose 6 MG; Start 10/21/18 at 22:00 Carvedilol (Coreg) 12.5 mg BID PO Last administered on 10/25/18 20:53; Admin Dose 12.5 MG; Start 10/23/18 at 21:00 Calcium Carbonate (Ca Carbonate) 1,250 mg QID GTB Last administered on 10/25/18 20:52; Admin Dose 1,250 MG; Start 10/24/18 at 13:00 Calcitriol (Rocaltrol) 1 mcg BID PO Last administered on 10/25/18 20:52; Admin Dose 1 MCG; Start 10/25/18 at 21:00 MARYANN HACKETT Oct 26, 2018 08:56
--- NOTE | 2018-10-26 09:01 | CONS ---
Consult Date/Type/Reason Admit Date/Time Oct 09, 2018 at 12:16 Initial Consult Date 10/09/18 Type of Consult Pulmonary Requesting Provider: NOLA VIDAL MD Date/Time of Note DATE: 10/26/18 TIME: 09:01 Subjective Patient continues mechanical ventilation FiO2 of 50% appears calm comfortable no respiratory distress Objective Vital Signs Date Temp Pulse Resp B/P (MAP) Pulse Ox O2 O2 Flow FiO2 Time Delivery Rate 10/26/18 100 20 91 60 07:53 10/26/18 95/62 (73) Mechanical 06:00 Ventilator 10/26/18 99.0 04:00 Intake and Output 10/25/18 10/25/18 10/26/18 1414:59 22:59 06:59 IntakeIntake Total 420 ml 370 ml 420 ml OutputOutput Total 620 ml 360 ml 360 ml BalanceBalance -200 ml 10 ml 60 ml Exam GENERAL: Elderly appearing gentleman on mechanical ventilation via tracheostomy VITAL SIGNS: per chart NECK: Supple. No JVD or lymphadenopathy. CARDIAC EXAM: S1, S2. No added sounds or murmurs. CHEST: Diminished air entry bilaterally with rales ABDOMEN: Soft, nontender. No guarding or rebound. EXTREMITIES: No cyanosis, clubbing or edema. NEUROLOGIC: Generalized weakness. No focal deficits. Vent Setting Ventilator Support Mode: AC, VC plus Fraction of Inspired Oxygen pe: 60 Positive End Expiratory Pressu: 5.0 Results/Medications Result Diagram: 10/26/18 0449 10/26/18 0449 Results 24 hrs Laboratory Tests Test 10/25/18 10:25 10/25/18 13:04 10/25/18 21:24 10/26/18 01:46 Blood Gas Blood arterial Specimen Source Arterial Blood 10/25/2018 10:25: Date Drawn 00 AM Arterial Blood pH 7.355 (Temp corrected) Arterial Blood 56.7 H pCO2 (Temp correct) Arterial Blood 98.0 pO2 (Temp corrected) Arterial Blood 31.0 H HCO3 Arterial Blood 4.5 H Base Excess Arterial Blood 96.5 Oxygen Saturation [place] Test ACCEPTAB Arterial Blood Left Radial Gas Puncture Site Arterial 0.2 Blood Carboxyhemo globin Arterial Blood 0.3 Methemoglobin Blood Gas A-a O2 303.8 H Differential Oxyhemoglobin 96.0 Percent Blood Gas 37.0 Temperature Blood Gas 20.0 Respiration Rate Blood Gas Actual 22 Respiration Rate Blood Gas VENT - AC Modality FiO2 65.0 Blood Gas Tidal 400.0 Volume Blood Gas Low 5.0 PEEP Setting Blood Gas TM Notified Whom Blood Gas 10/25/2018 10:33: Notified Time 00 AM Bedside Glucose 147 174 197 Test 10/26/18 04:49 White Blood Count 19.1 #H Red Blood Count 3.06 L Hemoglobin 8.9 L Hematocrit 28.8 L Mean Corpuscular 94.1 Volume Mean Corpuscular 29.1 Hemoglobin Mean Corpuscular 30.9 L Hemoglobin Concen t Red Cell 18.0 H Distribution Width Platelet Count 319 # Mean Platelet 11.5 H Volume Immature 3.200 H Granulocytes % Neutrophils % 83.8 H Lymphocytes % 3.0 L Monocytes % 9.8 Eosinophils % 0.0 Basophils % 0.2 Nucleated Red 0.0 Blood Cells % Immature 0.620 H Granulocytes # Neutrophils # 16.0 H Lymphocytes # 0.6 L Monocytes # 1.9 H Eosinophils # 0.0 Basophils # 0.0 Nucleated Red 0.0 Blood Cells # Sodium Level 132 L Potassium Level 4.6 Chloride Level 92 L Carbon Dioxide 36 H Level Anion Gap 4 L Blood Urea 35 H Nitrogen Creatinine 0.40 L Est Glomerular > 60 Filtrat Rate mL/min Glucose Level 143 Calcium Level 7.2 L Ionized Calcium 1.0 L (Measured) Phosphorus Level 3.8 Magnesium Level 1.7 Medications Current Medications Acetaminophen (Tylenol Liquid) 650 mg Q4H PRN GTB MILD PAIN(1-3)OR ELEVATED TEMP Last administered on 10/16/18at 07:52; Admin Dose 650 MG; Start 10/09/18 at 14:00 Al Hydrox/Mg Hydrox/Simethicone (Mag-Al Plus) 15 ml Q6H PRN PO GASTROINTESTINAL UPSET Last administered on 10/17/18at 13:18; Admin Dose 15 ML; Start 10/09/18 at 14:00 Eye Lubricant (Artificial Tears Oph) 1 drop Q6H PRN BOTH EYES DRY EYES; Start 10/09/18 at 14:00 Bisacodyl (Dulcolax Supp) 10 mg DAILY PRN [place] CONSTIPATION; Start 10/09/18 at 14:00 Clonidine (Catapres) 0.1 mg DAILY PRN GTB ELEVATED BLOOD PRESSURE; Start 10/09/18 at 14:00 Diltiazem HCl (Cardizem Iv) 5 mg Q4 PRN IV ELEVATED HEART RATE Last administered on 10/18/18 01:09; Admin Dose 5 MG; Start 10/09/18 at 14:00 Diphenhydramine HCl (Benadryl Liquid Cup) 25 mg Q6 PRN GTB ITCHING Last administered on 10/22/18 20:25; Admin Dose 25 MG; Start 10/09/18 at 14:00 Duloxetine HCl (Cymbalta) 30 mg DAILY PO Last administered on 10/25/18 08:37; Admin Dose 30 MG; Start 10/10/18 at 09:00 Epoetin Arpan (Epogen (Esrd)) 10,000 units TuSa@1300 SC Last administered on 10/25/18 13:00; Admin Dose 10,000 UNITS; Start 10/11/18 at 13:00 Gabapentin (Neurontin Liquid) 400 mg Q8 GTB Last administered on 10/26/18 05:45; Admin Dose 400 MG; Start 10/09/18 at 15:30 Hydralazine HCl (Apresoline) 10 mg Q4H PRN IV ELEVATED BLOOD PRESSURE; Start 10/09/18 at 14:00 Hydroxychloroquine Sulfate (Plaquenil) 200 mg BID PO Last administered on 10/25/18 20:53; Admin Dose 200 MG; Start 10/09/18 at 21:00 Diagnostic Test (Pha) (Accu-Chek) 1 ea 02 XX Last administered on 10/25/18 01:46; Admin Dose 1 EA; Start 10/10/18 at 02:00 Insulin Aspart (Novolog Insulin Pen) NOVOLOG *CUSTOM* ALGORITHM Q6H SC Last administered on 10/26/18 01:57; Admin Dose 1 UNIT; Start 10/09/18 at 14:00 Lactobacillus Acidophilus (Florajen3 Capsule) 1 each BID GTB Last administered on 10/25/18 21:02; Admin Dose 1 EACH; Start 10/09/18 at 21:00 Lansoprazole (Prevacid) 30 mg BID@06,18 GTB Last administered on 10/26/18 05:45; Admin Dose 30 MG; Start 10/09/18 at 18:00 Levetiracetam (Keppra Liquid) 500 mg BID GTB Last administered on 10/25/18 20:52; Admin Dose 500 MG; Start 10/09/18 at 21:00 Magnesium Oxide (Mag-Ox 400) 400 mg BID GTB Last administered on 10/25/18 20:52; Admin Dose 400 MG; Start 10/09/18 at 21:00 Metoclopramide HCl (Reglan) 10 mg TID IV Last administered on 10/25/18 20:52; Admin Dose 10 MG; Start 10/09/18 at 21:00 Miconazole Nitrate (Miconazole 2% Cr) 1 applic BID TOP Last administered on 10/25/18 20:54; Admin Dose 1 APPLIC; Start 10/09/18 at 21:00 Miconazole Nitrate (Miconazole 2% Cr) 1 applic Q12 PRN TOP rash; Start 10/09/18 at 14:00 Ondansetron HCl (Zofran Inj) 4 mg Q4H PRN IV NAUSEA AND/OR VOMITING Last administered on 10/19/18 16:37; Admin Dose 4 MG; Start 10/09/18 at 14:00 Polyethylene Glycol (Miralax) 17 gm DAILY PRN GTB CONSTIPATION; Start 10/09/18 at 14:00 Senna (Senokot) 2 tab Q8 PRN PO CONSTIPATION; Start 10/09/18 at 14:00 Trimethoprim/ Sulfamethoxazole (Bactrim Susp) 40 ml DAILY GTB Last administered on 10/25/18 08:34; Admin Dose 40 ML; Start 10/10/18 at 09:00 Zolpidem Tartrate (Ambien) 5 mg HS PRN PO INSOMNIA Last administered on 10/21/18 02:34; Admin Dose 5 MG; Start 10/09/18 at 14:00 Miscellaneous Information 1 ea NOTE XX ; Start 10/09/18 at 15:00 Glucose (Glutose) 15 gm Q15M PRN PO DECREASED GLUCOSE; Start 10/09/18 at 15:00 Glucose (Glutose) 22.5 gm Q15M PRN PO DECREASED GLUCOSE; Start 10/09/18 at 15:00 Dextrose (D50w Syringe) 25 ml Q15M PRN IV DECREASED GLUCOSE; Start 10/09/18 at 15:00 Dextrose (D50w Syringe) 50 ml Q15M PRN IV DECREASED GLUCOSE; Start 10/09/18 at 15:00 Glucagon (Glucagen) 1 mg Q15M PRN IM DECREASED GLUCOSE; Start 10/09/18 at 15:00 Glucose (Glutose) 15 gm Q15M PRN BUCCAL DECREASED GLUCOSE; Start 10/09/18 at 15:00 Sodium Chloride 500 ml @ 500 mls/hr Q1H PRN IV BLOOD PRESSURE SUPPORT Last administered on 10/10/18 07:59; Admin Dose 500 MLS/HR; Start 10/09/18 at 19:30 Albuterol (Ventolin Hfa) 4 puff Q6H RESP THERAPY INH Last administered on 10/26/18 07:52; Admin Dose 4 PUFF; Start 10/10/18 at 02:00 Ipratropium [place] (Atrovent Hfa) 4 puff Q6H RESP THERAPY INH Last administered on 10/26/18 07:52; Admin Dose 4 PUFF; Start 10/10/18 at 02:00 Methylprednisolone Sodium Succinate (Solu-Medrol) 40 mg Q8 IV Last administered on 10/26/18 05:45; Admin Dose 40 MG; Start 10/14/18 at 14:00 Lorazepam (Ativan) 1 mg Q4H PRN GTB AGITATION/ANXIETY Last administered on 10/19/18 17:35; Admin Dose 1 MG; Start 10/14/18 at 13:00 Lisinopril (Zestril) 2.5 mg DAILY PO Last administered on 10/25/18 08:35; A dmin Dose 2.5 MG; Start 10/15/18 at 09:00 Linagliptin (Tradjenta) 5 mg DAILY PO Last administered on 10/25/18 08:37; Admin Dose 5 MG; Start 10/16/18 at 10:30 Fentanyl (Duragesic 50 Mcg/Hr Patch) 1 patch Q72H TRANSDERM Last administered on 10/23/18 21:32; Admin Dose 1 PATCH; Start 10/17/18 at 20:30 Lorazepam (Ativan) 2 mg Q6H GTB Last administered on 10/26/18 03:18; Admin Dose 2 MG; Start 10/20/18 at 15:00 Quetiapine Fumarate (Seroquel) 100 mg BID GTB Last administered on 10/25/18 21:02; Admin Dose 100 MG; Start 10/21/18 at 21:00 Hydromorphone HCl (Dilaudid) 6 mg Q4H PRN PO MODERATE PAIN LEVEL 7-10 Last administered on 10/26/18 03:18; Admin Dose 6 MG; Start 10/21/18 at 22:00 Carvedilol (Coreg) 12.5 mg BID PO Last administered on 10/25/18 20:53; Admin Dose 12.5 MG; Start 10/23/18 at 21:00 Calcium Carbonate (Ca Carbonate) 1,250 mg QID GTB Last administered on 10/25/18 20:52; Admin Dose 1,250 MG; Start 10/24/18 at 13:00 Calcitriol (Rocaltrol) 1 mcg BID PO Last administered on 10/25/18 20:52; Admin Dose 1 MCG; Start 10/25/18 at 21:00 Assessment/Plan Hospital Course (Demo Recall) IMP: 1. Acute on chronic hypoxemic respiratory failure with underlying acute respiratory distress syndrome. 2. History of HSV esophagitis. 3. Chronic sepsis. 4. History of rheumatoid arthritis. 5. C-spine disease with functional quadriplegia. 6. Dysphagia with G-tube. PLAN: 1. Continue mechanical, decrease FiO2 as tolerated currently at 50% 2. Continue tube feeding 3. Rule out TB ID 4. PT eval as tolerated Consider family conference regarding goals of care. Transfer to [place]. Critical care time 40 minutes DALTON DURBIN MD, [facility] Oct 26, 2018 09:01
[2018-10-26] MEDS: CA CARBONATE (250 MG/ML) 5ML CUP GTB SCH ×4 (09:40→20:52)
[2018-10-26] MEDS: DULOXETINE 30 MG CAP DR PO SCH (09:40)
[2018-10-26] MEDS: LEVETIRACETAM (100 MG/ML) 5ML CUP GTB SCH ×2 (09:40→20:52)
[2018-10-26] MEDS: L ACIDOPHIL/B LACTIS/B LONGUM CAPSULE GTB SCH ×2 (09:41→20:52)
[2018-10-26] MEDS: MAGNESIUM OXIDE 400 MG TAB GTB SCH ×2 (09:41→20:52)
[2018-10-26] MEDS: HYDROXYCHLOROQUINE 200 MG TAB PO SCH ×2 (09:41→20:53)
[2018-10-26] MEDS: QUETIAPINE 100 MG TAB GTB SCH ×2 (09:41→20:53)
[2018-10-26] MEDS: LISINOPRIL 5 MG TAB PO SCH (09:41)
[2018-10-26] MEDS: CALCITRIOL 0.25 MCG CAP PO SCH ×2 (09:42→20:53)
[2018-10-26] MEDS: LINAGLIPTIN 5 MG TABLET PO SCH (09:42)
[2018-10-26] MEDS: METOCLOPRAMIDE 10 MG INJ IV SCH ×3 (09:42→20:52)
[2018-10-26] MEDS: TRIMETHOPRIM/SULFAMETHOX (PO SYG) GTB SCH (09:42)
[2018-10-26] MEDS: BALSAM PERU/CASTOR OIL 60 GM TUBE TOP SCH (09:43)
[2018-10-26] MEDS: MICONAZOLE 2% 30 GM CR TOP SCH ×2 (09:43→20:55)
--- NOTE | 2018-10-26 10:55 | CONS ---
Assessment/Plan Assessment/Plan Hospital Course (Demo Recall) IMPRESSION: 1. Tachycardia- S tach. Overall improved. Likley due to anxiety/infection/cardiomyopathy, multifactorial 2. Hypertension with borderline hypotension at this time. -still borderline Hotn 3. Abnormal electrocardiogram at baseline. 4. Chronic respiratory failure, status post tracheostomy.-weaning vent support 5. Dysphagia, status post G-tube. 6. Quadriplegia. 7. Renal insufficiency, on steroids. 8. Chronic obstructive pulmonary disease. 9. Rheumatoid arthritis. 10. Chronic kidney disease. 11. Diabetes mellitus. 12.Adrenal insufficiency 14. cardiomyopathy-EF 35-40% by echo this admit Recc -ICU -Vent support as necessary -Follow volume status closely and spot dose lasix as necessary -Continue abx's and f/u cx data -continue steroids -Continue BB at current dose as tolerated and continue low dose ACEI -s/p dose of IVP digoxin Consultation Date/Type/Reason Admit Date/Time Oct 09, 2018 at 12:16 Initial Consult Date 10/09/18 Type of Consult Cardiology Reason for Consultation CHF/cardiomyopathy Requesting Provider: NOLA VIDAL MD Date/Time of Note DATE: 10/26/18 TIME: 10:51 Exam/Review of Systems Vital Signs Vitals Vital Signs Date Temp Pulse Resp B/P (MAP) Pulse Ox O2 O2 Flow FiO2 Time Delivery Rate 10/26/18 110 114/79 Mechanical 10:00 (91) Ventilator 10/26/18 20 91 09:00 10/26/18 98.8 08:00 10/26/18 60 08:00 Intake and Output 10/25/18 10/25/18 10/26/18 1515:00 23:00 07:00 IntakeIntake Total 370 ml 370 ml 420 ml OutputOutput Total 630 ml 370 ml 350 ml BalanceBalance -260 ml 0 ml 70 ml Exam Exam Review of Systems: CONSTITUTIONAL: No fevers, chills. PULMONARY: trached CARDIOVASCULAR: No chest pain/palpitations GASTROINTESTINAL: No nausea/vomiting. GENITOURINARY: No hematuria/dysuria. MUSCULOSKELETAL: No myagias/arthalgias. PSYCHIATRIC: The patient denies depression. NEUROLOGIC: generalized weakness Constitutional: alert Psych: no complaints Head: normocephalic ENMT: mucosa pink and moist Neck: supple Respiratory: clear to auscultation (9 cm water) Cardiovascular: regular rate and rhythm Gastrointestinal: soft, non-tender Musculoskeletal: muscle weakness (generalized) Extremities: edema (none) Neurological: other (No focal deficits) Labs Result Diagram: 10/26/189 10/26/18 0449 Results 24hrs Laboratory Tests Test 10/25/18 13:04 10/25/18 21:24 10/26/18 01:46 10/26/18 04:49 Bedside Glucose 147 174 197 White Blood Count 19.1 #H Red Blood Count 3.06 L Hemoglobin 8.9 L Hematocrit 28.8 L Mean Corpuscular 94.1 Volume Mean Corpuscular 29.1 Hemoglobin Mean Corpuscular 30.9 L Hemoglobin Concent Red Cell 18.0 H Distribution Width Platelet Count 319 # Mean Platelet Volume 11.5 H Immature 3.200 H Granulocytes % Neutrophils % 83.8 H Lymphocytes % 3.0 L Monocytes % 9.8 Eosinophils % 0.0 Basophils % 0.2 Nucleated Red Blood 0.0 Cells % Immature 0.620 H Granulocytes # Neutrophils # 16.0 H Lymphocytes # 0.6 L Monocytes # 1.9 H Eosinophils # 0.0 Basophils # 0.0 Nucleated Red Blood 0.0 Cells # Sodium Level 132 L Potassium Level 4.6 Chloride Level 92 L Carbon Dioxide Level 36 H Anion Gap 4 L Blood Urea Nitrogen 35 H Creatinine 0.40 L Est Glomerular > 60 Filtrat Rate mL/min Glucose Level 143 Calcium Level 7.2 L Ionized Calcium 1.0 L (Measured) Phosphorus Level 3.8 Magnesium Level 1.7 Test 10/26/18 09:43 Bedside Glucose 167 Medications Medications Current Medications Acetaminophen (Tylenol Liquid) 650 mg Q4H PRN GTB MILD PAIN(1-3)OR ELEVATED TEMP Last administered on 10/16/18at 07:52; Admin Dose 650 MG; Start 10/09/18 at 14:00 Al Hydrox/Mg Hydrox/Simethicone (Mag-Al Plus) 15 ml Q6H PRN PO GASTROINTESTINAL UPSET Last administered on 10/17/18at 13:18; Admin Dose 15 ML; Start 10/09/18 at 14:00 Eye Lubricant (Artificial Tears Oph) 1 drop Q6H PRN BOTH EYES DRY EYES; Start 10/09/18 at 14:00 Bisacodyl (Dulcolax Supp) 10 mg DAILY PRN [place] CONSTIPATION; Start 10/09/18 at 14:00 Clonidine (Catapres) 0.1 mg DAILY PRN GTB ELEVATED BLOOD PRESSURE; Start 10/09/18 at 14:00 Diltiazem HCl (Cardizem Iv) 5 mg Q4 PRN IV ELEVATED HEART RATE Last administered on 10/18/18 01:09; Admin Dose 5 MG; Start 10/09/18 at 14:00 Diphenhydramine HCl (Benadryl Liquid Cup) 25 mg Q6 PRN GTB ITCHING Last administered on 10/22/18 20:25; Admin Dose 25 MG; Start 10/09/18 at 14:00 Duloxetine HCl (Cymbalta) 30 mg DAILY PO Last administered on 10/26/18 09:40; Admin Dose 30 MG; Start 10/10/18 at 09:00 Epoetin Arpan (Epogen (Esrd)) 10,000 units TuSa@1300 SC Last administered on 10/25/18 13:00; Admin Dose 10,000 UNITS; Start 10/11/18 at 13:00 Gabapentin (Neurontin Liquid) 400 mg Q8 GTB Last administered on 10/26/18 05:45; Admin Dose 400 MG; Start 10/09/18 at 15:30 Hydralazine HCl (Apresoline) 10 mg Q4H PRN IV ELEVATED BLOOD PRESSURE; Start 10/09/18 at 14:00 Hydroxychloroquine Sulfate (Plaquenil) 200 mg BID PO Last administered on 10/26/18 09:41; Admin Dose 200 MG; Start 10/09/18 at 21:00 Diagnostic Test (Pha) (Accu-Chek) 1 ea 02 XX Last administered on 10/25/18 01:46; Admin Dose 1 EA; Start 10/10/18 at 02:00 Insulin Aspart (Novolog Insulin Pen) NOVOLOG *CUSTOM* ALGORITHM Q6H SC Last administered on 10/26/18 09:45; Admin Dose 1 UNIT; Start 10/09/18 at 14:00 Lactobacillus Acidophilus (Florajen3 Capsule) 1 each BID GTB Last administered on 10/26/18 09:41; Admin Dose 1 EACH; Start 10/09/18 at 21:00 Lansoprazole (Prevacid) 30 mg BID@06,18 GTB Last administered on 10/26/18 05:45; Admin Dose 30 MG; Start 10/09/18 at 18:00 Levetiracetam (Keppra Liquid) 500 mg BID GTB Last administered on 10/26/18 09: 40; Admin Dose 500 MG; Start 10/09/18 at 21:00 Magnesium Oxide (Mag-Ox 400) 400 mg BID GTB Last administered on 10/26/18 09:41; Admin Dose 400 MG; Start 10/09/18 at 21:00 Metoclopramide HCl (Reglan) 10 mg TID IV Last administered on 10/26/18 09:42; Admin Dose 10 MG; Start 10/09/18 at 21:00 Miconazole Nitrate (Miconazole 2% Cr) 1 applic BID TOP Last administered on 10/26/18 09:43; Admin Dose 1 APPLIC; Start 10/09/18 at 21:00 Miconazole Nitrate (Miconazole 2% Cr) 1 applic Q12 PRN TOP rash; Start 10/09/18 at 14:00 Ondansetron HCl (Zofran Inj) 4 mg Q4H PRN IV NAUSEA AND/OR VOMITING Last ad ministered on 10/19/18 16:37; Admin Dose 4 MG; Start 10/09/18 at 14:00 Polyethylene Glycol (Miralax) 17 gm DAILY PRN GTB CONSTIPATION; Start 10/09/18 at 14:00 Senna (Senokot) 2 tab Q8 PRN PO CONSTIPATION; Start 10/09/18 at 14:00 Trimethoprim/ Sulfamethoxazole (Bactrim Susp) 40 ml DAILY GTB Last administered on 10/26/18 09:42; Admin Dose 40 ML; Start 10/10/18 at 09:00 Zolpidem Tartrate (Ambien) 5 mg HS PRN PO INSOMNIA Last administered on 10/21/18 02:34; Admin Dose 5 MG; Start 10/09/18 at 14:00 Miscellaneous Information 1 ea NOTE XX ; Start 10/09/18 at 15:00 Glucose (Glutose) 15 gm Q15M PRN PO DECREASED GLUCOSE; Start 10/09/18 at 15:00 Glucose (Glutose) 22.5 gm Q15M PRN PO DECREASED GLUCOSE; Start 10/09/18 at 15:00 Dextrose (D50w Syringe) 25 ml Q15M PRN IV DECREASED GLUCOSE; Start 10/09/18 at 15:00 Dextrose (D50w Syringe) 50 ml Q15M PRN IV DECREASED GLUCOSE; Start 10/09/18 at 15:00 Glucagon (Glucagen) 1 mg Q15M PRN IM DECREASED GLUCOSE; Start 10/09/18 at 15:00 Glucose (Glutose) 15 gm Q15M PRN BUCCAL DECREASED GLUCOSE; Start 10/09/18 at 15:00 Sodium Chloride 500 ml @ 500 mls/hr Q1H PRN IV BLOOD PRESSURE SUPPORT Last administered on 10/10/18 07:59; Admin Dose 500 MLS/HR; Start 10/09/18 at 19:30 Albuterol (Ventolin Hfa) 4 puff Q6H RESP THERAPY INH Last administered on 10/26/18 07:52; Admin Dose 4 PUFF; Start 10/10/18 at 02:00 Ipratropium [place] (Atrovent Hfa) 4 puff Q6H RESP THERAPY INH Last administered on 10/26/18 07:52; Admin Dose 4 PUFF; Start 10/10/18 at 02:00 Methylprednisolone Sodium Succinate (Solu-Medrol) 40 mg Q8 IV Last administered on 10/26/18 05:45; Admin Dose 40 MG; Start 10/14/18 at 14:00 Lorazepam (Ativan) 1 mg Q4H PRN GTB AGITATION/ANXIETY Last administered on 10/19/18 17:35; Admin Dose 1 MG; Start 10/14/18 at 13:00 Lisinopril (Zestril) 2.5 mg DAILY PO Last administered on 10/26/18 09:41; Admin Dose 2.5 MG; Start 10/15/18 at 09:00 Linagliptin (Tradjenta) 5 mg DAILY PO Last administered on 10/26/18 09:42; Admin Dose 5 MG; Start 10/16/18 at 10:30 Fentanyl (Duragesic 50 Mcg/Hr Patch) 1 patch Q72H TRANSDERM Last administered on 10/23/18 21:32; Admin Dose 1 PATCH; Start 10/17/18 at 20:30 Lorazepam (Ativan) 2 mg Q6H GTB Last administered on 10/26/18 09:40; Admin Dose 2 MG; Start 10/20/18 at 15:00 Quetiapine Fumarate (Seroquel) 100 mg BID GTB Last administered on 10/26/18 09:41; Admin Dose 100 MG; Start 10/21/18 at 21:00 Hydromorphone HCl (Dilaudid) 6 mg Q4H PRN PO MODERATE PAIN LEVEL 7-10 Last administered on 10/26/18 09:42; Admin Dose 6 MG; Start 10/21/18 at 22:00 Carvedilol (Coreg) 12.5 mg BID PO Last administered on 10/26/18 09:41; Admin Dose 12.5 MG; Start 10/23/18 at 21:00 Calcium Carbonate (Ca Carbonate) 1,250 mg QID GTB Last administered on 10/26/18 09:40; Admin Dose 1,250 MG; Start 10/24/18 at 13:00 Calcitriol (Rocaltrol) 1 mcg BID PO Last administered on 10/26/18 09:42; Admin Dose 1 MCG; Start 10/25/18 at 21:00 BRISA HAQUE 13, 2019 10:55
--- NOTE | 2018-10-26 15:45 | PN ---
Date/Time of Note Date/Time of Note DATE: 10/26/18 TIME: 15:44 Assessment/Plan VTE Prophylaxis Risk score (from [place])>0 risk: 6 [place] [facility] [place] Pharmacological prophylaxis: NA/contraindicated Pharm contraindication: bleeding Lines/Catheters [facility] Mid Line Central line still needed: Yes Urinary Cath still in place: Yes Reason Cath still needed: urinary retention Assessment/Plan Hospital Course Patient's unable to tolerate FiO2 decreased due to desaturation continues on vent with 60% FiO2, patient is lethargic but easily arousable, calm. Assessment/Plan - Acute on chronic hypoxemic respiratory failure with underlying ARDS, continue ventilatory support. Dr. Villa is following in pulmonology consultation. - Acute kidney injury, continue to monitor BUN and creatinine. G-tube feeding changed to renal source. Dr. Hobson is following in nephrology consultation. -Tachycardia, Dr. Joshi is following in cardiology consultation. - Cardiomyopathy with EF 35-40% - Rheumatoid arthritis with steroid dependence. The patient's pain seems to be controlled with the current dose of fentanyl. - Dysphagia. Continue GT feeding. - Anemia of chronic disease. - Hypoparathyroidism with recent hypercalcemia, status post pamidronate. - Hypertension. - Functional quadriplegia - Hx of severe cervical spinal cord stenosis with cord compression from C3-C5, s/p laminectomy. - History of fibromyalgia rheumatica - Hx of VAT on 08/11/2018 Critical care time spent 30 minutes. Further recommendations based on clinical course. Plan of care discussed with Dr. Rosales Result Diagram: 10/26/18 0449 10/26/18 0449 Results 24hrs Laboratory Tests Test 10/25/18 21:24 10/26/18 01:46 10/26/18 04:49 10/26/18 09:43 Bedside Glucose 174 197 167 White Blood Count 19.1 #H Red Blood Count 3.06 L Hemoglobin 8.9 L Hematocrit 28.8 L Mean Corpuscular 94.1 Volume Mean Corpuscular 29.1 Hemoglobin Mean Corpuscular 30.9 L Hemoglobin Concent Red Cell 18.0 H Distribution Width Platelet Count 319 # Mean Platelet Volume 11.5 H Immature 3.200 H Granulocytes % Neutrophils % 83.8 H Lymphocytes % 3.0 L Monocytes % 9.8 Eosinophils % 0.0 Basophils % 0.2 Nucleated Red Blood 0.0 Cells % Immature 0.620 H Granulocytes # Neutrophils # 16.0 H Lymphocytes # 0.6 L Monocytes # 1.9 H Eosinophils # 0.0 Basophils # 0.0 Nucleated Red Blood 0.0 Cells # Sodium Level 132 L Potassium Level 4.6 Chloride Level 92 L Carbon Dioxide Level 36 H Anion Gap 4 L Blood Urea Nitrogen 35 H Creatinine 0.40 L Est Glomerular > 60 Filtrat Rate mL/min Glucose Level 143 Calcium Level 7.2 L Ionized Calcium 1.0 L (Measured) Phosphorus Level 3.8 Magnesium Level 1.7 Test 10/26/18 15:22 Bedside Glucose 153 Exam/Review of Systems Exam Vitals Vital Signs Date Temp Pulse Resp B/P (MAP) Pulse Ox O2 O2 Flow FiO2 Time Delivery Rate 10/26/18 102 22 96 60 15:00 10/26/18 93/59 (70) Mechanical 15:00 Ventilator 10/26/18 98.4 12:00 Intake and Output 10/25/18 10/25/18 10/26/18 1515:00 23:00 07:00 IntakeIntake Total 370 ml 370 ml 420 ml OutputOutput Total 630 ml 370 ml 350 ml BalanceBalance -260 ml 0 ml 70 ml Exam Constitutional: alert, oriented, frail Neck: other (trach) Respiratory: diminished breath sounds Cardiovascular: regular rate and rhythm Gastrointestinal: soft, non-tender, other Neurological: nl mental status Results Results 24hrs Laboratory Tests Test 10/25/18 21:24 10/26/18 01:46 10/26/18 04:49 10/26/18 09:43 Bedside Glucose 174 197 167 White Blood Count 19.1 #H Red Blood Count 3.06 L Hemoglobin 8.9 L Hematocrit 28.8 L Mean Corpuscular 94.1 Volume Mean Corpuscular 29.1 Hemoglobin Mean Corpuscular 30.9 L Hemoglobin Concent Red Cell 18.0 H Distribution Width Platelet Count 319 # Mean Platelet Volume 11.5 H Immature 3.200 H Granulocytes % Neutrophils % 83.8 H Lymphocytes % 3.0 L Monocytes % 9.8 Eosinophils % 0.0 Basophils % 0.2 Nucleated Red Blood 0.0 Cells % Immature 0.620 H Granulocytes # Neutrophils # 16.0 H Lymphocytes # 0.6 L Monocytes # 1.9 H Eosinophils # 0.0 Basophils # 0.0 Nucleated Red Blood 0.0 Cells # Sodium Level 132 L Potassium Level 4.6 Chloride Level 92 L Carbon Dioxide Level 36 H Anion Gap 4 L Blood Urea Nitrogen 35 H Creatinine 0.40 L Est Glomerular > 60 Filtrat Rate mL/min Glucose Level 143 Calcium Level 7.2 L Ionized Calcium 1.0 L (Measured) Phosphorus Level 3.8 Magnesium Level 1.7 Test 10/26/18 15:22 Bedside Glucose 153 Medications Medication Current Medications Acetaminophen (Tylenol Liquid) 650 mg Q4H PRN GTB MILD PAIN(1-3)OR ELEVATED TEMP Last administered on 10/16/18 07:52; Admin Dose 650 MG; Start 10/09/18 at 14:00 Al Hydrox/Mg Hydrox/Simethicone (Mag-Al Plus) 15 ml Q6H PRN PO GASTROINTESTINAL UPSET Last administered on 10/17/18 13:18; Admin Dose 15 ML; Start 10/09/18 at 14:00 Eye Lubricant (Artificial Tears Oph) 1 drop Q6H PRN BOTH EYES DRY EYES; Start 10/09/18 at 14:00 Bisacodyl (Dulcolax Supp) 10 mg DAILY PRN [place] CONSTIPATION; Start 10/09/18 at 14:00 Clonidine (Catapres) 0.1 mg DAILY PRN GTB ELEVATED BLOOD PRESSURE; Start 10/09/18 at 14:00 Diltiazem HCl (Cardizem Iv) 5 mg Q4 PRN IV ELEVATED HEART RATE Last administered on 10/18/18 01:09; Admin Dose 5 MG; Start 10/09/18 at 14:00 Diphenhydramine HCl (Benadryl Liquid Cup) 25 mg Q6 PRN GTB ITCHING Last administered on 10/22/18 20:25; Admin Dose 25 MG; Start 10/09/18 at 14:00 Duloxetine HCl (Cymbalta) 30 mg DAILY PO Last administered on 10/26/18 09:40; Admin Dose 30 MG; Start 10/10/18 at 09:00 Epoetin Arpan (Epogen (Esrd)) 10,000 units TuSa@1300 SC Last administered on 10/25/18 13:00; Admin Dose 10,000 UNITS; Start 10/11/18 at 13:00 Gabapentin (Neurontin Liquid) 400 mg Q8 GTB Last administered on 10/26/18 15:21; Admin Dose 400 MG; Start 10/09/18 at 15:30 Hydralazine HCl (Apresoline) 10 mg Q4H PRN IV ELEVATED BLOOD PRESSURE; Start 10/09/18 at 14:00 Hydroxychloroquine Sulfate (Plaquenil) 200 mg BID PO Last administered on 10/26/18 09:41; Admin Dose 200 MG; Start 10/09/18 at 21:00 Diagnostic Test (Pha) (Accu-Chek) 1 ea 02 XX Last administered on 10/25/18 01:46; Admin Dose 1 EA; Start 10/10/18 at 02:00 Insulin Aspart (Novolog Insulin Pen) NOVOLOG *CUSTOM* ALGORITHM Q6H SC Last administered on 10/26/18 15:24; Admin Dose 1 UNIT; Start 10/09/18 at 14:00 Lactobacillus Acidophilus (Florajen3 Capsule) 1 each BID GTB Last administered on 10/26/18 09:41; Admin Dose 1 EACH; Start 10/09/18 at 21:00 Lansoprazole (Prevacid) 30 mg BID@06,18 GTB Last administered on 10/26/18 05:45; Admin Dose 30 MG; Start 10/09/18 at 18:00 Levetiracetam (Keppra Liquid) 500 mg BID GTB Last administered on 10/26/18 09:40; Admin Dose 500 MG; Start 10/09/18 at 21:00 Magnesium Oxide (Mag-Ox 400) 400 mg BID GTB Last administered on 10/26/18 09:41; Admin Dose 400 MG; Start 10/09/18 at 21:00 Metoclopramide HCl (Reglan) 10 mg TID IV Last administered on 10/26/18 12:20; Admin Dose 10 MG; Start 10/09/18 at 21:00 Miconazole Nitrate (Miconazole 2% Cr) 1 applic BID TOP Last administered on 10/26/18 09:43; Admin Dose 1 APPLIC; Start 10/09/18 at 21:00 Miconazole Nitrate (Miconazole 2% Cr) 1 applic Q12 PRN TOP rash; Start 10/09/18 at 14:00 Ondansetron HCl (Zofran Inj) 4 mg Q4H PRN IV NAUSEA AND/OR VOMITING Last administered on 10/19/18 16:37; Admin Dose 4 MG; Start 10/09/18 at 14:00 Polyethylene Glycol (Miralax) 17 gm DAILY PRN GTB CONSTIPATION; Start 10/09/18 at 14:00 Senna (Senokot) 2 tab Q8 PRN PO CONSTIPATION; Start 10/09/18 at 14:00 Trimethoprim/ Sulfamethoxazole (Bactrim Susp) 40 ml DAILY GTB Last administered on 10/26/18 09:42; Admin Dose 40 ML; Start 10/10/18 at 09:00 Zolpidem Tartrate (Ambien) 5 mg HS PRN PO INSOMNIA Last administered on 10/21/18 02:34; Admin Dose 5 MG; Start 10/09/18 at 14:00 Miscellaneous Information 1 ea NOTE XX ; Start 10/09/18 at 15:00 Glucose (Glutose) 15 gm Q15M PRN PO DECREASED GLUCOSE; Start 10/09/18 at 15:00 Glucose (Glutose) 22.5 gm Q15M PRN PO DECREASED GLUCOSE; Start 10/09/18 at 15:00 Dextrose (D50w Syringe) 25 ml Q15M PRN IV DECREASED GLUCOSE; Start 10/09/18 at 15:00 Dextrose (D50w Syringe) 50 ml Q15M PRN IV DECREASED GLUCOSE; Start 10/09/18 at 15:00 Glucagon (Glucagen) 1 mg Q15M PRN IM DECREASED GLUCOSE; Start 10/09/18 at 15:00 Glucose (Glutose) 15 gm Q15M PRN BUCCAL DECREASED GLUCOSE; Start 10/09/18 at 15:00 Sodium Chloride 500 ml @ 500 mls/hr Q1H PRN IV BLOOD PRESSURE SUPPORT Last administered on 10/10/18 07:59; Admin Dose 500 MLS/HR; Start 10/09/18 at 19:30 Albuterol (Ventolin Hfa) 4 puff Q6H RESP THERAPY INH Last administered on 10/26/18 14:59; Admin Dose 4 PUFF; Start 10/10/18 at 02:00 Ipratropium [place] (Atrovent Hfa) 4 puff Q6H RESP THERAPY INH Last administered on 10/26/18 14:59; Admin Dose 4 PUFF; Start 10/10/18 at 02:00 Methylprednisolone Sodium Succinate (Solu-Medrol) 40 mg Q8 IV Last administered on 10/26/18 15:21; Admin Dose 40 MG; Start 10/14/18 at 14:00 Lorazepam (Ativan) 1 mg Q4H PRN GTB AGITATION/ANXIETY Last administered on 10/19/18 17:35; Admin Dose 1 MG; Start 10/14/18 at 13:00 Lisinopril (Zestril) 2.5 mg DAILY PO Last administered on 10/26/18 09:41; Admin Dose 2.5 MG; Start 10/15/18 at 09:00 Linagliptin (Tradjenta) 5 mg DAILY PO Last administered on 10/26/18 09:42; Admin Dose 5 MG; Start 10/16/18 at 10:30 Fentanyl (Duragesic 50 Mcg/Hr Patch) 1 patch Q72H TRANSDERM Last administered on 10/23/18 21:32; Admin Dose 1 PATCH; Start 10/17/18 at 20:30 Lorazepam (Ativan) 2 mg Q6H GTB Last administered on 10/26/18 15:21; Admin Dose 2 MG; Start 10/20/18 at 15:00 Quetiapine Fumarate (Seroquel) 100 mg BID GTB Last administered on 10/26/18 09:41; Admin Dose 100 MG; Start 10/21/18 at 21:00 Hydromorphone HCl (Dilaudid) 6 mg Q4H PRN PO MODERATE PAIN LEVEL 7-10 Last administered on 10/26/18 09:42; Admin Dose 6 MG; Start 10/21/18 at 22:00 Carvedilol (Coreg) 12.5 mg BID PO Last administered on 10/26/18 09:41; Admin Dose 12.5 MG; Start 10/23/18 at 21:00 Calcium Carbonate (Ca Carbonate) 1,250 mg QID GTB Last administered on 10/26/18 12:20; Admin Dose 1,250 MG; Start 10/24/18 at 13:00 Calcitriol (Rocaltrol) 1 mcg BID PO Last administered on 10/26/18 09:42; Admin Dose 1 MCG; Start 10/25/18 at 21:00 CAROLYN LANGLEY Oct 26, 2018 15:45
--- NOTE | 2018-10-26 15:52 | CONS ---
Assessment/Plan Assessment/Plan Hospital Course (Demo Recall) # sepsis, respiratory - recurrent sepsis on 10/08/2018 due to aspiration pneumonia, HCAP, improved - possible aspiration pneumonia, recurrent pneumonia due to citrobacter, improved - acute on chronic hypoxic and hypercarbic respiratory failure - persistent leukocytosis likely due to steroid margination - h/o tracheostomy on 08/26/2018 - h/o "Increased mild left apical pneumothorax" per CXR on 09/19/2018; no pneumothorax mentioned on subsequent CXR - h/o pneumomediastinum - h/o VAT on 08/11/2018 - h/o asthma/COPD exacerbation - h/o acute tracheobronchitis - h/o MAC infection but CT chest did not demonstrate features suggestive of this per chart review - On this admission AFB smear x3 have been negative (10/21/18 0600, 10/21/18 1530, and 10/22/18 0040), pneumocystis jiroveci 10/18/18 not detected, Quantiferon TB Gold negative. - h/o HCAP due to citrobacter, based on resp culture on 09/13/2018 - h/o aspergillus growing out of resp culture per (pulm note by Dr. Lopez) on 07/25/2018 - h/o elevated 1,3 Pxkg-D-xaytss level = 232 on 08/06/2018 - h/o MSSA septicemia # GI - diarrhea, C diff on 10/09/2018 was negative - h/o HSV esophagitis, took acyclovir x21 days from 08/26/2018 - h/o EGD, esophageal biopsy showed esophageal squamous mucosa showing acute inflammation, granulation tissue, and ulceration consistent with ulcerative esophagitis, rare multinucleated cells with morphology suggestive of vial cytopathic changes, No cardiac mucosa, intestinal metaplasia, dysplasia, or malignancy defined - GERD - PUD # renal/ - Hypokalemia, recurrent - CKD 2 - BPH # cardiac - tachycardia, persistent - ACD - HTN - HLD # endo - T2DM - Hgb A1c 7.2% - secondary adrenal insufficiency; steroid dependent - Hypoparathyroidism - Hypercalcemia - Pamidronate was ordered # neuro - toxic metabolic encephalopathy - Cervical myopathy - Severe cervical spinal cord stenosis with cord compression from C3-C5, s/p laminectomy in ~03/2018 - Chronic pain syndrome - Functional quadriplegia - Seizure d/o # other chronic conditions - RA with chronic steroid dependence - Immunocompromised status - Fibromyalgia - DDD - H/o multiple rib fracture - Pt completed: meropenem (09/25/2018-10/02/2018), vancomycin (09/25/18-09/28/18), pip/tazo (10/09/2018-10/15/2018) Recommendations: - Pending: AFB culture x3 (AFB smear x3 have resulted negative) particular to r/o mycobacterium avium intracellulaire, coccidioides serology - Continue Bactrim for pneumocystis PPX - Continue to monitor off other systemic antibiotic Plan was d/w patient (explained), and with Dr. Davila. Thank you Total critical care time spent: 40 minutes. Consultation Date/Type/Reason Admit Date/Time Oct 09, 2018 at 12:16 Initial Consult Date 10/12/18 Type of Consult ID Requesting Provider: NOLA VIDAL MD Date/Time of Note DATE: 10/26/18 TIME: 15:51 24 HR Interval Summary Free Text/Dictation Patient continues to have episodes of anxiety. Remains afebrile. Back to 60% fio2 (on 50% earlier shortly) Patient c/o pain. Lethargic, did not answer other ROS questions for me. Exam/Review of Systems Exam Vitals Vital Signs Date Temp Pulse Resp B/P (MAP) Pulse Ox O2 O2 Flow FiO2 Time Delivery Rate 10/26/18 102 22 96 60 15:00 10/26/18 93/59 (70) Mechanical 15:00 Ventilator 10/26/18 98.4 12:00 Intake and Output 10/25/18 10/25/18 10/26/18 1515:00 23:00 07:00 IntakeIntake Total 370 ml 370 ml 420 ml OutputOutput Total 630 ml 370 ml 350 ml BalanceBalance -260 ml 0 ml 70 ml Allergies Coded Allergies No Known Allergy (Unverified10/12/18) Exam Constitutional: non-verbal, frail, other (awake, lethargic) Head: normocephalic, atraumatic Eyes: nl conjunctiva, nl lids, nl sclera ENMT: nl external ears & nose, nl nasal mucosa & septum, mucosa pink and moist (no thrush) Neck: supple, non-tender, other (trach site is midline, site c/d/i, on vent, fio2 60%) Respiratory: normal air movement, diminished breath sounds Cardiovascular: regular rate and rhythm, nl pulses, other (RUE PICC site is c/d/i) Gastrointestinal: soft, non-tender, other (GT site is c/d/i, rectal tube in place) Musculoskeletal: nl extremities to inspection Extremities: normal pulses Neurological: lethargic, other (eye tracks, follows simple commands, able to mouth words, currently sleeping) Skin: nl turgor, other (stage II coccygeal ulcer); No rash or lesions Results Result Diagram: 10/26/18 0449 10/26/18 0449 Results 24hrs Laboratory Tests Test 10/25/18 21:24 10/26/18 01:46 10/26/18 04:49 10/26/18 09:43 Bedside Glucose 174 197 167 White Blood Count 19.1 #H Red Blood Count 3.06 L Hemoglobin 8.9 L Hematocrit 28.8 L Mean Corpuscular 94.1 Volume Mean Corpuscular 29.1 Hemoglobin Mean Corpuscular 30.9 L Hemoglobin Concent Red Cell 18.0 H Distribution Width Platelet Count 319 # Mean Platelet Volume 11.5 H Immature 3.200 H Granulocytes % Neutrophils % 83.8 H Lymphocytes % 3.0 L Monocytes % 9.8 Eosinophils % 0.0 Basophils % 0.2 Nucleated Red Blood 0.0 Cells % Immature 0.620 H Granulocytes # Neutrophils # 16.0 H Lymphocytes # 0.6 L Monocytes # 1.9 H Eosinophils # 0.0 Basophils # 0.0 Nucleated Red Blood 0.0 Cells # Sodium Level 132 L Potassium Level 4.6 Chloride Level 92 L Carbon Dioxide Level 36 H Anion Gap 4 L Blood Urea Nitrogen 35 H Creatinine 0.40 L Est Glomerular > 60 Filtrat Rate mL/min Glucose Level 143 Calcium Level 7.2 L Ionized Calcium 1.0 L (Measured) Phosphorus Level 3.8 Magnesium Level 1.7 Test 10/26/18 15:22 Bedside Glucose 153 Medications Medication Current Medications Acetaminophen (Tylenol Liquid) 650 mg Q4H PRN GTB MILD PAIN(1-3)OR ELEVATED TEMP Last administered on 10/16/18at 07:52; Admin Dose 650 MG; Start 10/09/18 at 14:00 Al Hydrox/Mg Hydrox/Simethicone (Mag-Al Plus) 15 ml Q6H PRN PO GASTROINTESTINAL UPSET Last administered on 10/17/18 13:18; Admin Dose 15 ML; Start 10/09/18 at 14:00 Eye Lubricant (Artificial Tears Oph) 1 drop Q6H PRN BOTH EYES DRY EYES; Start 10/09/18 at 14:00 Bisacodyl (Dulcolax Supp) 10 mg DAILY PRN [place] CONSTIPATION; Start 10/09/18 at 14 :00 Clonidine (Catapres) 0.1 mg DAILY PRN GTB ELEVATED BLOOD PRESSURE; Start 10/09/18 at 14:00 Diltiazem HCl (Cardizem Iv) 5 mg Q4 PRN IV ELEVATED HEART RATE Last administered on 10/18/18 01:09; Admin Dose 5 MG; Start 10/09/18 at 14:00 Diphenhydramine HCl (Benadryl Liquid Cup) 25 mg Q6 PRN GTB ITCHING Last administered on 10/22/18 20:25; Admin Dose 25 MG; Start 10/09/18 at 14:00 Duloxetine HCl (Cymbalta) 30 mg DAILY PO Last administered on 10/26/18 09:40; Admin Dose 30 MG; Start 10/10/18 at 09:00 Epoetin Arpan (Epogen (Esrd)) 10,000 units TuSa@1300 SC Last administered on 10/25/18 13:00; Admin Dose 10,000 UNITS; Start 10/11/18 at 13:00 Gabapentin (Neurontin Liquid) 400 mg Q8 GTB Last administered on 10/26/18 15:21; Admin Dose 400 MG; Start 10/09/18 at 15:30 Hydralazine HCl (Apresoline) 10 mg Q4H PRN IV ELEVATED BLOOD PRESSURE; Start 10/09/18 at 14:00 Hydroxychloroquine Sulfate (Plaquenil) 200 mg BID PO Last administered on 10/26/18 09:41; Admin Dose 200 MG; Start 10/09/18 at 21:00 Diagnostic Test (Pha) (Accu-Chek) 1 ea 02 XX Last administered on 10/25/18 01:46; Admin Dose 1 EA; Start 10/10/18 at 02:00 Insulin Aspart (Novolog Insulin Pen) NOVOLOG *CUSTOM* ALGORITHM Q6H SC Last administered on 10/26/18 15:24; Admin Dose 1 UNIT; Start 10/09/18 at 14:00 Lactobacillus Acidophilus (Florajen3 Capsule) 1 each BID GTB Last administered on 10/26/18 09:41; Admin Dose 1 EACH; Start 10/09/18 at 21:00 Lansoprazole (Prevacid) 30 mg BID@06,18 GTB Last administered on 10/26/18 05:45; Admin Dose 30 MG; Start 10/09/18 at 18:00 Levetiracetam (Keppra Liquid) 500 mg BID GTB Last administered on 10/26/18 09:40; Admin Dose 500 MG; Start 10/09/18 at 21:00 Magnesium Oxide (Mag-Ox 400) 400 mg BID GTB Last administered on 10/26/18 09:41; Admin Dose 400 MG; Start 10/09/18 at 21:00 Metoclopramide HCl (Reglan) 10 mg TID IV Last administered on 10/26/18 12:20; Admin Dose 10 MG; Start 10/09/18 at 21:00 Miconazole Nitrate (Miconazole 2% Cr) 1 applic BID TOP Last administered on 10/26/18 09:43; Admin Dose 1 APPLIC; Start 10/09/18 at 21:00 Miconazole Nitrate (Miconazole 2% Cr) 1 applic Q12 PRN TOP rash; Start 10/09/18 at 14:00 Ondansetron HCl (Zofran Inj) 4 mg Q4H PRN IV NAUSEA AND/OR VOMITING Last administered on 10/19/18 16:37; Admin Dose 4 MG; Start 10/09/18 at 14:00 Polyethylene Glycol (Miralax) 17 gm DAILY PRN GTB CONSTIPATION; Start 10/09/18 at 14:00 Senna (Senokot) 2 tab Q8 PRN PO CONSTIPATION; Start 10/09/18 at 14:00 Trimethoprim/ Sulfamethoxazole (Bactrim Susp) 40 ml DAILY GTB Last administered on 10/26/18 09:42; Admin Dose 40 ML; Start 10/10/18 at 09:00 Zolpidem Tartrate (Ambien) 5 mg HS PRN PO INSOMNIA Last administered on 10/21/18 02:34; Admin Dose 5 MG; Start 10/09/18 at 14:00 Miscellaneous Information 1 ea NOTE XX ; Start 10/09/18 at 15:00 Glucose (Glutose) 15 gm Q15M PRN PO DECREASED GLUCOSE; Start 10/09/18 at 15:00 Glucose (Glutose) 22.5 gm Q15M PRN PO DECREASED GLUCOSE; Start 10/09/18 at 15:00 Dextrose (D50w Syringe) 25 ml Q15M PRN IV DECREASED GLUCOSE; Start 10/09/18 at 15:00 Dextrose (D50w Syringe) 50 ml Q15M PRN IV DECREASED GLUCOSE; Start 10/09/18 at 15:00 Glucagon (Glucagen) 1 mg Q15M PRN IM DECREASED GLUCOSE; Start 10/09/18 at 15:00 Glucose (Glutose) 15 gm Q15M PRN BUCCAL DECREASED GLUCOSE; Start 10/09/18 at 15:00 Sodium Chloride 500 ml @ 500 mls/hr Q1H PRN IV BLOOD PRESSURE SUPPORT Last administered on 10/10/18at 07:59; Admin Dose 500 MLS/HR; Start 10/09/18 at 19:30 Albuterol (Ventolin Hfa) 4 puff Q6H RESP THERAPY INH Last administered on 10/26/18 14:59; Admin Dose 4 PUFF; Start 10/10/18 at 02:00 Ipratropium [place] (Atrovent Hfa) 4 puff Q6H RESP THERAPY INH Last administered on 10/26/18 14:59; Admin Dose 4 PUFF; Start 10/10/18 at 02:00 Methylprednisolone Sodium Succinate (Solu-Medrol) 40 mg Q8 IV Last administered on 10/26/18 15:21; Admin Dose 40 MG; Start 10/14/18 at 14:00 Lorazepam (Ativan) 1 mg Q4H PRN GTB AGITATION/ANXIETY Last administered on 10/19/18 17:35; Admin Dose 1 MG; Start 10/14/18 at 13:00 Lisinopril (Zestril) 2.5 mg DAILY PO Last administered on 10/26/18 09:41; Admin Dose 2.5 MG; Start 10/15/18 at 09:00 Linagliptin (Tradjenta) 5 mg DAILY PO Last administered on 10/26/18 09:42; Admin Dose 5 MG; Start 10/16/18 at 10:30 Fentanyl (Duragesic 50 Mcg/Hr Patch) 1 patch Q72H TRANSDERM Last administered on 10/23/18 21:32; Admin Dose 1 PATCH; Start 10/17/18 at 20:30 Lorazepam (Ativan) 2 mg Q6H GTB Last administered on 10/26/18 15:21; Admin Dose 2 MG; Start 10/20/18 at 15:00 Quetiapine Fumarate (Seroquel) 100 mg BID GTB Last administered on 10/26/18 09:41; Admin Dose 100 MG; Start 10/21/18 at 21:00 Hydromorphone HCl (Dilaudid) 6 mg Q4H PRN PO MODERATE PAIN LEVEL 7-10 Last administered on 10/26/18 09:42; Admin Dose 6 MG; Start 10/21/18 at 22:00 Carvedilol (Coreg) 12.5 mg BID PO Last administered on 10/26/18 09:41; Admin Dose 12.5 MG; Start 10/23/18 at 21:00 Calcium Carbonate (Ca Carbonate) 1,250 mg QID GTB Last administered on 10/26/18 12:20; Admin Dose 1,250 MG; Start 10/24/18 at 13:00 Calcitriol (Rocaltrol) 1 mcg BID PO Last administered on 10/26/18 09:42; Admin Dose 1 MCG; Start 10/25/18 at 21:00 STEVE MOSCOSO NP Oct 26, 2018 15:52
[2018-10-27] VITALS (42 sets, daily range): BP systolic 82–127; BP diastolic 49–92; PULSE 100–128; RESP 16–44
[2018-10-27] MEDS: ACCU-CHEK XX SCH (02:00)
[2018-10-27] MEDS: IPRATROPIUM (HFA) 12.9 GM INHALER INH SCH ×4 (02:01→19:51)
[2018-10-27] MEDS: ALBUTEROL HFA 8 GM INHALER INH SCH ×4 (02:01→19:51)
[2018-10-27] MEDS: FENTAnyl PATCH 50 MCG/HR TRANSDERM SCH (02:19)
[2018-10-27] MEDS: BALSAM PERU/CASTOR OIL 60 GM TUBE TOP SCH ×3 (02:20→20:23)
[2018-10-27] MEDS: INSULIN ASPART [NOVOLOG] 3 ML PEN SC SCH ×4 (02:29→20:35)
[2018-10-27] MEDS: LORAZEPAM 1 MG TAB GTB SCH ×4 (03:17→20:22)
[2018-10-27] MEDS: HYDROmorphONE 2 MG TAB PO PRN ×3 (05:41→20:22)
[2018-10-27] MEDS: LANSOPRAZOLE 30 MG CAP GTB SCH ×2 (05:41→17:20)
[2018-10-27] MEDS: GABAPENTIN (50 MG/ML PO SYG) GTB SCH ×3 (05:41→20:25)
[2018-10-27] MEDS: METHYLPREDNISOLONE 40 MG INJ IV SCH ×2 (05:41→13:25)
--- NOTE | 2018-10-27 07:34 | CONS ---
Assessment/Plan Assessment/Plan Hospital Course (Demo Recall) 53 yo male pt in [place] transferred to ICU for increased O2 demands Interval History- No acute events overnight, tolerating tube feeds well, no residual. Pt was not able to tolerate FiO2 50% yesterday likely due to his anxiety. Diarrhea improved, more so loose stool. Neg AFB sputum x 3. Off airborne precautions. 1. Respiratory failure secondary to pneumonia versus interstitial pneumonitis from rheumatoid arthritis versus mild aspiration. -on Bactrim 2. Severe rheumatoid arthritis. 3. Quadriplegia. 4. Adrenal insufficiency. 5. Gastroparesis. -Reglan, denies nausea 6. Hypothyroidism. 7. Chronic pain syndrome. 8. Hypertension. 9. Diarrhea -VRE in stool which is likely colonized -FOB neg -likely due to tube feeds 10. Leukocytosis secondary to steroids 11.ARDS 12. Anxiety -on PO ativan Swallow eval: Impression: Oropharyngeal dysphagia associated with reduced oropharyngeal strength/coordination, delayed timing of swallowing and reduced coordination of breath with swallow safety impacting swallow safety. Pt is not safe to initiate p.o intake and is at high risk of aspiration. Recommendation: 1. Initiate dysphagia therapy 3-5x per week for 1-2 weeks 2. Keep NPO+PEG tube feeds for primary means of nutrition/hydration/medication delivery 3. Anticipate need for in-line PMV evaluation one respiratory status improves and is stabilized 4. ongoing assessment and BOT and oropharyngeal strengthening exercises, aswell as pt/family education and counseling 5. Anticipate need for MBSS prior to initiation of p.o intake PLAN: ID recommendations. Patient is on Bactrim Continue present care Nothing by mouth per swallow eval results Continue with tube feeds check residuals q 4 hours Continue Reglan. Aspiration precautions. So far there is no evidence of aspiration. If anytime there is evidence of aspiration will convert G-tube to J-tube Pt examined and plan of care discussed with Dr. Minaya Consultation Date/Type/Reason Admit Date/Time Oct 09, 2018 at 12:16 Initial Consult Date 10/09/18 Requesting Provider: NOLA VIDAL MD Date/Time of Note DATE: 10/27/18 TIME: 07:31 Exam/Review of Systems Exam Vitals Vital Signs Date Temp Pulse Resp B/P (MAP) Pulse Ox O2 O2 Flow FiO2 Time Delivery Rate 10/27/18 109 24 97 60 06:10 10/27/18 114/79 Mechanical 06:00 (91) Ventilator 10/27/18 98.6 04:00 Intake and Output 10/26/18 10/26/18 10/27/18 1515:00 23:00 07:00 IntakeIntake Total 370 ml 370 ml 380 ml OutputOutput Total 450 ml 450 ml 305 ml BalanceBalance -80 ml -80 ml 75 ml Constitutional: alert, oriented Psych: no complaints Head: normocephalic Eyes: nl sclera, PERRL Cardiovascular: regular rate and rhythm Gastrointestinal: soft, non-tender Neurological: nl mental status Results Result Diagram: 10/27/18 0449 10/27/189 Results 24hrs Laboratory Tests Test 10/26/18 09:43 10/26/18 15:22 10/26/18 20:59 10/27/18 02:22 Bedside Glucose 167 153 154 186 Test 10/27/18 04:49 White Blood Count 22.1 H Red Blood Count 3.28 L Hemoglobin 9.6 L Hematocrit 30.9 L Mean Corpuscular 94.2 Volume Mean Corpuscular 29.3 Hemoglobin Mean Corpuscular 31.1 L Hemoglobin Concent Red Cell 17.7 H Distribution Width Platelet Count 351 Mean Platelet Volume 11.9 H Immature 5.000 H Granulocytes % Neutrophils % 81.7 H Lymphocytes % 3.2 L Monocytes % 9.6 Eosinophils % 0.0 Basophils % 0.5 Nucleated Red Blood 0.0 Cells % Immature 1.100 H Granulocytes # Neutrophils # 18.1 H Lymphocytes # 0.7 L Monocytes # 2.1 H Eosinophils # 0.0 Basophils # 0.1 Nucleated Red Blood 0.0 Cells # Sodium Level 131 L Potassium Level 4.4 Chloride Level 91 L Carbon Dioxide Level 35 H Anion Gap 5 Blood Urea Nitrogen 37 H Creatinine 0.37 L Est Glomerular > 60 Filtrat Rate mL/min Glucose Level 118 Calcium Level 7.9 L Phosphorus Level 3.5 Magnesium Level 1.7 Medications Medication Current Medications Acetaminophen (Tylenol Liquid) 650 mg Q4H PRN GTB MILD PAIN(1-3)OR ELEVATED TEMP Last administered on 10/16/18at 07:52; Admin Dose 650 MG; Start 10/09/18 at 14:00 Al Hydrox/Mg Hydrox/Simethicone (Mag-Al Plus) 15 ml Q6H PRN PO GASTROINTESTINAL UPSET Last administered on 10/17/18 13:18; Admin Dose 15 ML; Start 10/09/18 at 14:00 Eye Lubricant (Artificial Tears Oph) 1 drop Q6H PRN BOTH EYES DRY EYES; Start 10/09/18 at 14:00 Bisacodyl (Dulcolax Supp) 10 mg DAILY PRN [place] CONSTIPATION; Start 10/09/18 at 14:00 Clonidine (Catapres) 0.1 mg DAILY PRN GTB ELEVATED BLOOD PRESSURE; Start 10/09/18 at 14:00 Diltiazem HCl (Cardizem Iv) 5 mg Q4 PRN IV ELEVATED HEART RATE Last administered on 10/18/18 01:09; Admin Dose 5 MG; Start 10/09/18 at 14:00 Diphenhydramine HCl (Benadryl Liquid Cup) 25 mg Q6 PRN GTB ITCHING Last administered on 10/22/18 20:25; Admin Dose 25 MG; Start 10/09/18 at 14:00 Duloxetine HCl (Cymbalta) 30 mg DAILY PO Last administered on 10/26/18 09:40; Admin Dose 30 MG; Start 10/10/18 at 09:00 Epoetin Arpan (Epogen (Esrd)) 10,000 units TuSa@1300 SC Last administered on 10/25/18 13:00; Admin Dose 10,000 UNITS; Start 10/11/18 at 13:00 Gabapentin (Neurontin Liquid) 400 mg Q8 GTB Last administered on 10/27/18 05:41; Admin Dose 400 MG; Start 10/09/18 at 15:30 Hydralazine HCl (Apresoline) 10 mg Q4H PRN IV ELEVATED BLOOD PRESSURE; Start 10/09/18 at 14:00 Hydroxychloroquine Sulfate (Plaquenil) 200 mg BID PO Last administered on 10/26/18 20:53; Admin Dose 200 MG; Start 10/09/18 at 21:00 Diagnostic Test (Pha) (Accu-Chek) 1 ea 02 XX Last administered on 10/25/18 01:46; Admin Dose 1 EA; Start 10/10/18 at 02:00 Insulin Aspart (Novolog Insulin Pen) NOVOLOG *CUSTOM* ALGORITHM Q6H SC Last administered on 10/27/18 02:29; Admin Dose 1 UNIT; Start 10/09/18 at 14:00 Lactobacillus Acidophilus (Florajen3 Capsule) 1 each BID GTB Last administered on 10/26/18 20:52; Admin Dose 1 EACH; Start 10/09/18 at 21:00 Lansoprazole (Prevacid) 30 mg BID@,18 GTB Last administered on 10/27/18 05:41; Admin Dose 30 MG; Start 10/09/18 at 18:00 Levetiracetam (Keppra Liquid) 500 mg BID GTB Last administered on 10/26/18 20:52; Admin Dose 500 MG; Start 10/09/18 at 21:00 Magnesium Oxide (Mag-Ox 400) 400 mg BID GTB Last administered on 10/26/18 20:52; Admin Dose 400 MG; Start 10/09/18 at 21:00 Metoclopramide HCl (Reglan) 10 mg TID IV Last administered on 10/26/18 20:52; Admin Dose 10 MG; Start 10/09/18 at 21:00 Miconazole Nitrate (Miconazole 2% Cr) 1 applic BID TOP Last administered on 10/26/18 20:55; Admin Dose 1 APPLIC; Start 10/09/18 at 21:00 Miconazole Nitrate (Miconazole 2% Cr) 1 applic Q12 PRN TOP rash; Start 10/09/18 at 14:00 Ondansetron HCl (Zofran Inj) 4 mg Q4H PRN IV NAUSEA AND/OR VOMITING Last administered on 10/19/18 16:37; Admin Dose 4 MG; Start 10/09/18 at 14:00 Polyethylene Glycol (Miralax) 17 gm DAILY PRN GTB CONSTIPATION; Start 10/09/18 at 14:00 Senna (Senokot) 2 tab Q8 PRN PO CONSTIPATION; Start 10/09/18 at 14:00 Trimethoprim/ Sulfamethoxazole (Bactrim Susp) 40 ml DAILY GTB Last administered on 10/26/18 09:42; Admin Dose 40 ML; Start 10/10/18 at 09:00 Zolpidem Tartrate (Ambien) 5 mg HS PRN PO INSOMNIA Last administered on 10/21/18 02:34; Admin Dose 5 MG; Start 10/09/18 at 14:00 Miscellaneous Information 1 ea NOTE XX ; Start 10/09/18 at 15:00 Glucose (Glutose) 15 gm Q15M PRN PO DECREASED GLUCOSE; Start 10/09/18 at 15:00 Glucose (Glutose) 22.5 gm Q15M PRN PO DECREASED GLUCOSE; Start 10/09/18 at 15:00 Dextrose (D50w Syringe) 25 ml Q15M PRN IV DECREASED GLUCOSE; Start 10/09/18 at 15:00 Dextrose (D50w Syringe) 50 ml Q15M PRN IV DECREASED GLUCOSE; Start 10/09/18 at 15:00 Glucagon (Glucagen) 1 mg Q15M PRN IM DECREASED GLUCOSE; Start 10/09/18 at 15:00 Glucose (Glutose) 15 gm Q15M PRN BUCCAL DECREASED GLUCOSE; Start 10/09/18 at 15:00 Sodium Chloride 500 ml @ 500 mls/hr Q1H PRN IV BLOOD PRESSURE SUPPORT Last administered on 10/10/18at 07:59; Admin Dose 500 MLS/HR; Start 10/09/18 at 19:30 Albuterol (Ventolin Hfa) 4 puff Q6H RESP THERAPY INH Last administered on 10/27/18at 02:01; Admin Dose 4 PUFF; Start 10/10/18 at 02:00 Ipratropium [place] (Atrovent Hfa) 4 puff Q6H RESP THERAPY INH Last administered on 10/27/18at 02:01; Admin Dose 4 PUFF; Start 10/10/18 at 02:00 Methylprednisolone Sodium Succinate (Solu-Medrol) 40 mg Q8 IV Last administered on 10/27/18at 05:41; Admin Dose 40 MG; Start 10/14/18 at 14:00 Lorazepam (Ativan) 1 mg Q4H PRN GTB AGITATION/ANXIETY Last administered on 10/19/18at 17:35; Admin Dose 1 MG; Start 10/14/18 at 13:00 Lisinopril (Zestril) 2.5 mg DAILY PO Last administered on 10/26/18 09:41; Admin Dose 2.5 MG; Start 10/15/18 at 09:00 Linagliptin (Tradjenta) 5 mg DAILY PO Last administered on 10/26/18 09:42; Admin Dose 5 MG; Start 10/16/18 at 10:30 Fentanyl (Duragesic 50 Mcg/Hr Patch) 1 patch Q72H TRANSDERM Last administered on 10/27/18 02:19; Admin Dose 1 PATCH; Start 10/17/18 at 20:30 Lorazepam (Ativan) 2 mg Q6H GTB Last administered on 10/27/18 03:17; Admin Dose 2 MG; Start 10/20/18 at 15:00 Quetiapine Fumarate (Seroquel) 100 mg BID GTB Last administered on 10/26/18 20:53; Admin Dose 100 MG; Start 10/21/18 at 21:00 Hydromorphone HCl (Dilaudid) 6 mg Q4H PRN PO MODERATE PAIN LEVEL 7-10 Last administered on 10/27/18 05:41; Admin Dose 6 MG; Start 10/21/18 at 22:00 Carvedilol (Coreg) 12.5 mg BID PO Last administered on 10/26/18 09:41; Admin Dose 12.5 MG; Start 10/23/18 at 21:00 Calcium Carbonate (Ca Carbonate) 1,250 mg QID GTB Last administered on 10/26/18 20:52; Admin Dose 1,250 MG; Start 10/24/18 at 13:00 Calcitriol (Rocaltrol) 1 mcg BID PO Last administered on 10/26/18 20:53; Admin Dose 1 MCG; Start 10/25/18 at 21:00 MARYANN HACKETT Oct 27, 2018 07:34
[2018-10-27] MEDS: LEVETIRACETAM (100 MG/ML) 5ML CUP GTB SCH ×2 (08:16→20:20)
[2018-10-27] MEDS: HYDROXYCHLOROQUINE 200 MG TAB PO SCH ×2 (08:17→20:21)
[2018-10-27] MEDS: DULOXETINE 30 MG CAP DR PO SCH (08:17)
[2018-10-27] MEDS: MAGNESIUM OXIDE 400 MG TAB GTB SCH ×2 (08:17→20:20)
[2018-10-27] MEDS: QUETIAPINE 100 MG TAB GTB SCH ×2 (08:17→20:21)
[2018-10-27] MEDS: CALCITRIOL 0.25 MCG CAP PO SCH ×2 (08:17→20:20)
[2018-10-27] MEDS: LISINOPRIL 5 MG TAB PO SCH (08:19)
[2018-10-27] MEDS: LINAGLIPTIN 5 MG TABLET PO SCH (08:20)
[2018-10-27] MEDS: MICONAZOLE 2% 30 GM CR TOP SCH ×2 (08:20→20:24)
[2018-10-27] MEDS: TRIMETHOPRIM/SULFAMETHOX (PO SYG) GTB SCH (08:21)
--- NOTE | 2018-10-27 08:27 | PN ---
DATE: 10/27/2018 SUBJECTIVE: The patient remains in serious but stable condition, remains on high FIO2. No other janette nts noted. OBJECTIVE: VITAL SIGNS: Blood pressure is 114/79, respirations 25, pulse 118, temperature 98.6. HEENT: Head is normocephalic. NECK: Supple. HEART: Regular rate. LUNGS: Show diminished breath sounds at base. ABDOMEN: Soft, nontender to palpation without rebound or guarding. EXTREMITIES: Negative for clubbing, cyanosis, no edema. DERMATOLOGIC: No rashes. MUSCULOSKELETAL: No joint effusion. NEUROLOGIC: No change in exam. MEDICATIONS: Have been reviewed. LABORATORY DATA: Sodium 131, potassium 4.4, BUN 37, creatinine 0.37. White count 22.1, hemoglobin 9 .6, platelet count is 351. ASSESSMENT AND PLAN: 1. Nonoliguric acute kidney injury, etiology secondary to hemodynamics. Renal function has improved . Continue to monitor. 2. Hyponatremia. Etiology is multifactorial. The patient is no longer getting free water flushes. We will continue to monitor sodium levels. 3. Hypomagnesemia. Continue to monitor and replete as needed. 4. Mineral bone disorder, monitor calcium and phosphorus levels. 5. Ventilatory dependent respiratory failure. Vent settings and ABG was reviewed. Continue to dale tor. 6. Adrenal insufficiency. Continue Cortef. 7. Anemia. Monitor hemoglobin and hematocrit levels. 8. Dysphagia. Continue tube feeding. 9. Sepsis secondary to pneumonia. Patient completing antibiotic course. 10. Hypertension. Continue current blood pressure regimen. 11. Tachyarrhythmia. Continue current treatment plan. 12. Seizure disorder, continue medical management. 13. Anxiety disorder. Continue anxiolytics. Dictated By: UNA ROY DO NR/NTS Conf#: [id number] DID#: [id number] CC: NOLA VIDAL MD;*EndCC*
[2018-10-27] MEDS: METOCLOPRAMIDE 10 MG INJ IV SCH ×3 (08:31→20:20)
[2018-10-27] MEDS: L ACIDOPHIL/B LACTIS/B LONGUM CAPSULE GTB SCH ×2 (08:31→20:20)
--- NOTE | 2018-10-27 08:57 | CONS ---
Assessment/Plan Assessment/Plan Hospital Course (Demo Recall) IMPRESSION: 1. Tachycardia- S tach. worse today in setting mild hypotension. Likley due to anxiety/infection/cardiomyopathy, multifactorial 2. Hypertension with borderline hypotension at this time. -still borderline Hotn 3. Abnormal electrocardiogram at baseline. 4. Chronic respiratory failure, status post tracheostomy.-weaning vent support 5. Dysphagia, status post G-tube. 6. Quadriplegia. 7. Renal insufficiency, on steroids. 8. Chronic obstructive pulmonary disease. 9. Rheumatoid arthritis. 10. Chronic kidney disease. 11. Diabetes mellitus. 12.Adrenal insufficiency 14. cardiomyopathy-EF 35-40% by echo this admit Recc -ICU -Vent support as necessary -Follow volume status closely and spot dose lasix as necessary -Continue abx's and f/u cx data -continue steroids -Continue BB with slight decrease given hotn and continue ACEI as tolerated -Give dose of digoxin Consultation Date/Type/Reason Admit Date/Time Oct 09, 2018 at 12:16 Initial Consult Date 10/09/18 Type of Consult Cardiology Reason for Consultation CHF/cardiomyopathy Requesting Provider: NOLA VIDAL MD Date/Time of Note DATE: 10/27/18 TIME: 08:54 Exam/Review of Systems Vital Signs Vitals Vital Signs Date Temp Pulse Resp B/P (MAP) Pulse Ox O2 O2 Flow FiO2 Time Delivery Rate 10/27/18 50 07:41 10/27/18 108 20 96 07:40 10/27/18 114/79 Mechanical 06:00 (91) Ventilator 10/27/18 98.6 04:00 Intake and Output 10/26/18 10/26/18 10/27/18 1515:00 23:00 07:00 IntakeIntake Total 370 ml 370 ml 380 ml OutputOutput Total 450 ml 450 ml 305 ml BalanceBalance -80 ml -80 ml 75 ml Exam Exam Review of Systems: CONSTITUTIONAL: No fevers, chills. PULMONARY: trached CARDIOVASCULAR: No chest pain/palpitations GASTROINTESTINAL: No nausea/vomiting. GENITOURINARY: No hematuria/dysuria. MUSCULOSKELETAL: No obvious myagias/arthalgias. PSYCHIATRIC: The patient denies depression. NEUROLOGIC: Quad Constitutional: other (sleeping) Psych: no complaints ENMT: mucosa pink and moist Neck: supple, jvd (9 cm water) Respiratory: diminished breath sounds (at bases/B) Cardiovascular: other (tachycardic, regular rhythm) Gastrointestinal: soft, non-tender Musculoskeletal: muscle weakness (gemneralized) Extremities: edema (none) Neurological: lethargic Labs Result Diagram: 10/27/18 0449 10/27/189 Results 24hrs Laboratory Tests Test 10/26/18 09:43 10/26/18 15:22 10/26/18 20:59 10/27/18 02:22 Bedside Glucose 167 153 154 186 Test 10/27/18 04:49 10/27/18 08:37 White Blood Count 22.1 H Red Blood Count 3.28 L Hemoglobin 9.6 L Hematocrit 30.9 L Mean Corpuscular 94.2 Volume Mean Corpuscular 29.3 Hemoglobin Mean Corpuscular 31.1 L Hemoglobin Concent Red Cell 17.7 H Distribution Width Platelet Count 351 Mean Platelet Volume 11.9 H Immature 5.000 H Granulocytes % Neutrophils % 81.7 H Lymphocytes % 3.2 L Monocytes % 9.6 Eosinophils % 0.0 Basophils % 0.5 Nucleated Red Blood 0.0 Cells % Immature 1.100 H Granulocytes # Neutrophils # 18.1 H Lymphocytes # 0.7 L Monocytes # 2.1 H Eosinophils # 0.0 Basophils # 0.1 Nucleated Red Blood 0.0 Cells # Sodium Level 131 L Potassium Level 4.4 Chloride Level 91 L Carbon Dioxide Level 35 H Anion Gap 5 Blood Urea Nitrogen 37 H Creatinine 0.37 L Est Glomerular > 60 Filtrat Rate mL/min Glucose Level 118 Calcium Level 7.9 L Phosphorus Level 3.5 Magnesium Level 1.7 Bedside Glucose 129 Medications Medications Current Medications Acetaminophen (Tylenol Liquid) 650 mg Q4H PRN GTB MILD PAIN(1-3)OR ELEVATED TEMP Last administered on 10/16/18at 07:52; Admin Dose 650 MG; Start 10/09/18 at 14:00 Al Hydrox/Mg Hydrox/Simethicone (Mag-Al Plus) 15 ml Q6H PRN PO GASTROINTESTINAL UPSET Last administered on 10/17/18at 13:18; Admin Dose 15 ML; Start 10/09/18 at 14:00 Eye Lubricant (Artificial Tears Oph) 1 drop Q6H PRN BOTH EYES DRY EYES; Start 10/09/18 at 14:00 Bisacodyl (Dulcolax Supp) 10 mg DAILY PRN [place] CONSTIPATION; Start 10/09/18 at 14:00 Clonidine (Catapres) 0.1 mg DAILY PRN GTB ELEVATED BLOOD PRESSURE; Start 10/09/18 at 14:00 Diltiazem HCl (Cardizem Iv) 5 mg Q4 PRN IV ELEVATED HEART RATE Last administered on 10/18/18 01:09; Admin Dose 5 MG; Start 10/09/18 at 14:00 Diphenhydramine HCl (Benadryl Liquid Cup) 25 mg Q6 PRN GTB ITCHING Last administered on 10/22/18 20:25; Admin Dose 25 MG; Start 10/09/18 at 14:00 Duloxetine HCl (Cymbalta) 30 mg DAILY PO Last administered on 10/27/18 08:17; Admin Dose 30 MG; Start 10/10/18 at 09:00 Epoetin Arpan (Epogen (Esrd)) 10,000 units TuSa@1300 SC Last administered on 10/25/18 13:00; Admin Dose 10,000 UNITS; Start 10/11/18 at 13:00 Gabapentin (Neurontin Liquid) 400 mg Q8 GTB Last administered on 10/27/18 05:41; Admin Dose 400 MG; Start 10/09/18 at 15:30 Hydralazine HCl (Apresoline) 10 mg Q4H PRN IV ELEVATED BLOOD PRESSURE; Start 10/09/18 at 14:00 Hydroxychloroquine Sulfate (Plaquenil) 200 mg BID PO Last administered on 10/27 08:17; Admin Dose 200 MG; Start 10/09/18 at 21:00 Diagnostic Test (Pha) (Accu-Chek) 1 ea 02 XX Last administered on 10/25/18 01:46; Admin Dose 1 EA; Start 10/10/18 at 02:00 Insulin Aspart (Novolog Insulin Pen) NOVOLOG *CUSTOM* ALGORITHM Q6H SC Last administered on 10/27/18 02:29; Admin Dose 1 UNIT; Start 10/09/18 at 14:00 Lactobacillus Acidophilus (Florajen3 Capsule) 1 each BID GTB Last administered on 10/27/18 08:31; Admin Dose 1 EACH; Start 10/09/18 at 21:00 Lansoprazole (Prevacid) 30 mg BID@06,18 GTB Last administered on 10/27/18 05:41; Admin Dose 30 MG; Start 10/09/18 at 18:00 Levetiracetam (Keppra Liquid) 500 mg BID GTB Last administered on 10/27/18 08:16; Admin Dose 500 MG; Start 10/09/18 at 21:00 Magnesium Oxide (Mag-Ox 400) 400 mg BID GTB Last administered on 10/27/18 08:17; Admin Dose 400 MG; Start 10/09/18 at 21:00 Metoclopramide HCl (Reglan) 10 mg TID IV Last administered on 10/27/18 08:31; Admin Dose 10 MG; Start 10/09/18 at 21:00 Miconazole Nitrate (Miconazole 2% Cr) 1 applic BID TOP Last administered on 10/27/18 08:20; Admin Dose 1 APPLIC; Start 10/09/18 at 21:00 Miconazole Nitrate (Miconazole 2% Cr) 1 applic Q12 PRN TOP rash; Start 10/09/18 at 14:00 Ondansetron HCl (Zofran Inj) 4 mg Q4H PRN IV NAUSEA AND/OR VOMITING Last administered on 10/19/18 16:37; Admin Dose 4 MG; Start 10/09/18 at 14:00 Polyethylene Glycol (Miralax) 17 gm DAILY PRN GTB CONSTIPATION; Start 10/09/18 at 14:00 Senna (Senokot) 2 tab Q8 PRN PO CONSTIPATION; Start 10/09/18 at 14:00 Trimethoprim/ Sulfamethoxazole (Bactrim Susp) 40 ml DAILY GTB Last administered on 10/27/18 08:21; Admin Dose 40 ML; Start 10/10/18 at 09:00 Zolpidem Tartrate (Ambien) 5 mg HS PRN PO INSOMNIA Last administered on 10/21/18 02:34; Admin Dose 5 MG; Start 10/09/18 at 14:00 Miscellaneous Information 1 ea NOTE XX ; Start 10/09/18 at 15:00 Glucose (Glutose) 15 gm Q15M PRN PO DECREASED GLUCOSE; Start 10/09/18 at 15:00 Glucose (Glutose) 22.5 gm Q15M PRN PO DECREASED GLUCOSE; Start 10/09/18 at 15:00 Dextrose (D50w Syringe) 25 ml Q15M PRN IV DECREASED GLUCOSE; Start 10/09/18 at 15:00 Dextrose (D50w Syringe) 50 ml Q15M PRN IV DECREASED GLUCOSE; Start 10/09/18 at 15:00 Glucagon (Glucagen) 1 mg Q15M PRN IM DECREASED GLUCOSE; Start 10/09/18 at 15:00 Glucose (Glutose) 15 gm Q15M PRN BUCCAL DECREASED GLUCOSE; Start 10/09/18 at 15:00 Sodium Chloride 500 ml @ 500 mls/hr Q1H PRN IV BLOOD PRESSURE SUPPORT Last administered on 10/10/18 07:59; Admin Dose 500 MLS/HR; Start 10/09/18 at 19:30 Albuterol (Ventolin Hfa) 4 puff Q6H RESP THERAPY INH Last administered on 10/27/18 07:40; Admin Dose 4 PUFF; Start 10/10/18 at 02:00 Ipratropium [place] (Atrovent Hfa) 4 puff Q6H RESP THERAPY INH Last administered on 10/27/18 07:40; Admin Dose 4 PUFF; Start 10/10/18 at 02:00 Methylprednisolone Sodium Succinate (Solu-Medrol) 40 mg Q8 IV Last administered on 10/27/18 05:41; Admin Dose 40 MG; Start 10/14/18 at 14:00 Lorazepam (Ativan) 1 mg Q4H PRN GTB AGITATION/ANXIETY Last administered on 10/19/18 17:35; Admin Dose 1 MG; Start 10/14/18 at 13:00 Lisinopril (Zestril) 2.5 mg DAILY PO Last administered on 10/26/18 09:41; Admin Dose 2.5 MG; Start 10/15/18 at 09:00 Linagliptin (Tradjenta) 5 mg DAILY PO Last administered on 10/27/18 08:20; Admin Dose 5 MG; Start 10/16/18 at 10:30 Fentanyl (Duragesic 50 Mcg/Hr Patch) 1 patch Q72H TRANSDERM Last administered on 10/27/18 02:19; Admin Dose 1 PATCH; Start 10/17/18 at 20:30 Lorazepam (Ativan) 2 mg Q6H GTB Last administered on 10/27/18 08:34; Admin Dose 2 MG; Start 10/20/18 at 15:00 Quetiapine Fumarate (Seroquel) 100 mg BID GTB Last administered on 10/27/18 08:17; Admin Dose 100 MG; Start 10/21/18 at 21:00 Hydromorphone HCl (Dilaudid) 6 mg Q4H PRN PO MODERATE PAIN LEVEL 7-10 Last administered on 10/27/18 05:41; Admin Dose 6 MG; Start 10/21/18 at 22:00 Carvedilol (Coreg) 12.5 mg BID PO Last administered on 10/26/18 09:41; Admin Dose 12.5 MG; Start 10/23/18 at 21:00 Calcium Carbonate (Ca Carbonate) 1,250 mg QID GTB Last administered on 10/26/18 20:52; Admin Dose 1,250 MG; Start 10/24/18 at 13:00 Calcitriol (Rocaltrol) 1 mcg BID PO Last administered on 10/27/18 08:17; Admin Dose 1 MCG; Start 10/25/18 at 21:00 BRISA HAQUE 14, 2019 08:57
[2018-10-27] MEDS: CA CARBONATE (250 MG/ML) 5ML CUP GTB SCH ×4 (09:00→20:20)
[2018-10-27] MEDS ORDERED: DIGOXIN 500 MCG INJ IV ONE (09:30)
--- NOTE | 2018-10-27 10:14 | CONS ---
Consult Date/Type/Reason Admit Date/Time Oct 09, 2018 at 12:16 Initial Consult Date 10/09/18 Type of Consult Pulmonary Requesting Provider: NOLA VIDAL MD Date/Time of Note DATE: 10/27/18 TIME: 10:13 Subjective Patient remained stable on 50% FiO2 no respiratory distress at present. Still has significant anxiety. Objective Vital Signs Date Temp Pulse Resp B/P (MAP) Pulse Ox O2 O2 Flow FiO2 Time Delivery Rate 10/27/18 60 09:38 10/27/18 112 20 87 09:30 10/27/18 85/58 (67) 09:00 10/27/18 98.6 Mechanical 08:00 Ventilator Intake and Output 10/26/18 10/26/18 10/27/18 1515:00 23:00 07:00 IntakeIntake Total 370 ml 370 ml 380 ml OutputOutput Total 450 ml 450 ml 305 ml BalanceBalance -80 ml -80 ml 75 ml Exam GENERAL: Elderly appearing gentleman on mechanical ventilation via tracheostomy VITAL SIGNS: per chart NECK: Supple. No JVD or lymphadenopathy. CARDIAC EXAM: S1, S2. No added sounds or murmurs. CHEST: Diminished air entry bilaterally with rales ABDOMEN: Soft, nontender. No guarding or rebound. EXTREMITIES: No cyanosis, clubbing or edema. NEUROLOGIC: Generalized weakness. No focal deficits. Vent Setting Ventilator Support Mode: AC Fraction of Inspired Oxygen pe: 60 Positive End Expiratory Pressu: 5.0 Results/Medications Result Diagram: 10/27/18 0449 10/27/18 0449 Results 24 hrs Laboratory Tests Test 10/26/18 15:22 10/26/18 20:59 10/27/18 02:22 10/27/18 04:49 Bedside Glucose 153 154 186 White Blood Count 22.1 H Red Blood Count 3.28 L Hemoglobin 9.6 L Hematocrit 30.9 L Mean Corpuscular 94.2 Volume Mean Corpuscular 29.3 Hemoglobin Mean Corpuscular 31.1 L Hemoglobin Concent Red Cell 17.7 H Distribution Width Platelet Count 351 Mean Platelet Volume 11.9 H Immature 5.000 H Granulocytes % Neutrophils % 81.7 H Lymphocytes % 3.2 L Monocytes % 9.6 Eosinophils % 0.0 Basophils % 0.5 Nucleated Red Blood 0.0 Cells % Immature 1.100 H Granulocytes # Neutrophils # 18.1 H Lymphocytes # 0.7 L Monocytes # 2.1 H Eosinophils # 0.0 Basophils # 0.1 Nucleated Red Blood 0.0 Cells # Sodium Level 131 L Potassium Level 4.4 Chloride Level 91 L Carbon Dioxide Level 35 H Anion Gap 5 Blood Urea Nitrogen 37 H Creatinine 0.37 L Est Glomerular > 60 Filtrat Rate mL/min Glucose Level 118 Calcium Level 7.9 L Phosphorus Level 3.5 Magnesium Level 1.7 Test 10/27/18 08:37 Bedside Glucose 129 Medications Current Medications Acetaminophen (Tylenol Liquid) 650 mg Q4H PRN GTB MILD PAIN(1-3)OR ELEVATED TEMP Last administered on 10/16/18 07:52; Admin Dose 650 MG; Start 10/09/18 at 14:00 Al Hydrox/Mg Hydrox/Simethicone (Mag-Al Plus) 15 ml Q6H PRN PO GASTROINTESTINAL UPSET Last administered on 10/17/18 13:18; Admin Dose 15 ML; Start 10/09/18 at 14:00 Eye Lubricant (Artificial Tears Oph) 1 drop Q6H PRN BOTH EYES DRY EYES; Start 10/09/18 at 14:00 Bisacodyl (Dulcolax Supp) 10 mg DAILY PRN [place] CONSTIPATION; Start 10/09/18 at 14:00 Clonidine (Catapres) 0.1 mg DAILY PRN GTB ELEVATED BLOOD PRESSURE; Start 10/09/18 at 14:00 Diltiazem HCl (Cardizem Iv) 5 mg Q4 PRN IV ELEVATED HEART RATE Last administered on 10/18/18 01:09; Admin Dose 5 MG; Start 10/09/18 at 14:00 Diphenhydramine HCl (Benadryl Liquid Cup) 25 mg Q6 PRN GTB ITCHING Last administered on 10/22/18 20:25; Admin Dose 25 MG; Start 10/09/18 at 14:00 Duloxetine HCl (Cymbalta) 30 mg DAILY PO Last administered on 10/27/18 08:17; Admin Dose 30 MG; Start 10/10/18 at 09:00 Epoetin Arpan (Epogen (Esrd)) 10,000 units TuSa@1300 SC Last administered on 10/25/18 13:00; Admin Dose 10,000 UNITS; Start 10/11/18 at 13:00 Gabapentin (Neurontin Liquid) 400 mg Q8 GTB Last administered on 10/27/18 05:41; Admin Dose 400 MG; Start 10/09/18 at 15:30 Hydralazine HCl (Apresoline) 10 mg Q4H PRN IV ELEVATED BLOOD PRESSURE; Start 10/09/18 at 14:00 Hydroxychloroquine Sulfate (Plaquenil) 200 mg BID PO Last administered on 10/27/18 08:17; Admin Dose 200 MG; Start 10/09/18 at 21:00 Diagnostic Test (Pha) (Accu-Chek) 1 ea 02 XX Last administered on 10/25/18 01:46; Admin Dose 1 EA; Start 10/10/18 at 02:00 Insulin Aspart (Novolog Insulin Pen) NOVOLOG *CUSTOM* ALGORITHM Q6H SC Last administered on 10/27/18 02:29; Admin Dose 1 UNIT; Start 10/09/18 at 14:00 Lactobacillus Acidophilus (Florajen3 Capsule) 1 each BID GTB Last administered on 10/27/18 08:31; Admin Dose 1 EACH; Start 10/09/18 at 21:00 Lansoprazole (Prevacid) 30 mg BID@06,18 GTB Last administered on 10/27/18 05:41; Admin Dose 30 MG; Start 10/09/18 at 18:00 Levetiracetam (Keppra Liquid) 500 mg BID GTB Last administered on 10/27/18 08:16; Admin Dose 500 MG; Start 10/09/18 at 21:00 Magnesium Oxide (Mag-Ox 400) 400 mg BID GTB Last administered on 10/27/18 08: 17; Admin Dose 400 MG; Start 10/09/18 at 21:00 Metoclopramide HCl (Reglan) 10 mg TID IV Last administered on 10/27/18 08:31; Admin Dose 10 MG; Start 10/09/18 at 21:00 Miconazole Nitrate (Miconazole 2% Cr) 1 applic BID TOP Last administered on 10/27/18 08:20; Admin Dose 1 APPLIC; Start 10/09/18 at 21:00 Miconazole Nitrate (Miconazole 2% Cr) 1 applic Q12 PRN TOP rash; Start 10/09/18 at 14:00 Ondansetron HCl (Zofran Inj) 4 mg Q4H PRN IV NAUSEA AND/OR VOMITING Last administered on 10/19/18 16:37; Admin Dose 4 MG; Start 10/09/18 at 14:00 Polyethylene Glycol (Miralax) 17 gm DAILY PRN GTB CONSTIPATION; Start 10/09/18 at 14:00 Senna (Senokot) 2 tab Q8 PRN PO CONSTIPATION; Start 10/09/18 at 14:00 Trimethoprim/ Sulfamethoxazole (Bactrim Susp) 40 ml DAILY GTB Last administered on 10/27/18at 08:21; Admin Dose 40 ML; Start 10/10/18 at 09:00 Zolpidem Tartrate (Ambien) 5 mg HS PRN PO INSOMNIA Last administered on 10/21/18 02:34; Admin Dose 5 MG; Start 10/09/18 at 14:00 Miscellaneous Information 1 ea NOTE XX ; Start 10/09/18 at 15:00 Glucose (Glutose) 15 gm Q15M PRN PO DECREASED GLUCOSE; Start 10/09/18 at 15:00 Glucose (Glutose) 22.5 gm Q15M PRN PO DECREASED GLUCOSE; Start 10/09/18 at 1 5:00 Dextrose (D50w Syringe) 25 ml Q15M PRN IV DECREASED GLUCOSE; Start 10/09/18 at 15:00 Dextrose (D50w Syringe) 50 ml Q15M PRN IV DECREASED GLUCOSE; Start 10/09/18 at 15:00 Glucagon (Glucagen) 1 mg Q15M PRN IM DECREASED GLUCOSE; Start 10/09/18 at 15:00 Glucose (Glutose) 15 gm Q15M PRN BUCCAL DECREASED GLUCOSE; Start 10/09/18 at 15:00 Sodium Chloride 500 ml @ 500 mls/hr Q1H PRN IV BLOOD PRESSURE SUPPORT Last administered on 10/10/18at 07:59; Admin Dose 500 MLS/HR; Start 10/09/18 at 19:30 Albuterol (Ventolin Hfa) 4 puff Q6H RESP THERAPY INH Last administered on 10/27/18 07:40; Admin Dose 4 PUFF; Start 10/10/18 at 02:00 Ipratropium [place] (Atrovent Hfa) 4 puff Q6H RESP THERAPY INH Last administered on 10/27/18 07:40; Admin Dose 4 PUFF; Start 10/10/18 at 02:00 Methylprednisolone Sodium Succinate (Solu-Medrol) 40 mg Q8 IV Last administered on 10/27/18 05:41; Admin Dose 40 MG; Start 10/14/18 at 14:00 Lorazepam (Ativan) 1 mg Q4H PRN GTB AGITATION/ANXIETY Last administered on 17:35; Admin Dose 1 MG; Start 10/14/18 at 13:00 Lisinopril (Zestril) 2.5 mg DAILY PO Last administered on 10/26/18 09:41; Admin Dose 2.5 MG; Start 10/15/18 at 09:00 Linagliptin (Tradjenta) 5 mg DAILY PO Last administered on 10/27/18 08:20; Admin Dose 5 MG; Start 10/16/18 at 10:30 Fentanyl (Duragesic 50 Mcg/Hr Patch) 1 patch Q72H TRANSDERM Last administered on 10/27/18 02:19; Admin Dose 1 PATCH; Start 10/17/18 at 20:30 Lorazepam (Ativan) 2 mg Q6H GTB Last administered on 10/27/18 08:34; Admin Dose 2 MG; Start 10/20/18 at 15:00 Quetiapine Fumarate (Seroquel) 100 mg BID GTB Last administered on 10/27/18 08:17; Admin Dose 100 MG; Start 10/21/18 at 21:00 Hydromorphone HCl (Dilaudid) 6 mg Q4H PRN PO MODERATE PAIN LEVEL 7-10 Last administered on 10/27/18 05:41; Admin Dose 6 MG; Start 10/21/18 at 22:00 Calcium Carbonate (Ca Carbonate) 1,250 mg QID GTB Last administered on 10/26/18 20:52; Admin Dose 1,250 MG; Start 10/24/18 at 13:00 Calcitriol (Rocaltrol) 1 mcg BID PO Last administered on 10/27/18 08:17; Admin Dose 1 MCG; Start 10/25/18 at 21:00 Carvedilol (Coreg) 6.25 mg BID PO ; Start 10/27/18 at 21:00 Assessment/Plan Hospital Course (Demo Recall) IMP: 1. Acute on chronic hypoxemic respiratory failure with underlying acute respiratory distress syndrome. 2. History of HSV esophagitis. 3. Chronic sepsis. 4. History of rheumatoid arthritis. 5. C-spine disease with functional quadriplegia. 6. Dysphagia with G-tube. PLAN: 1. Continue mechanical, decrease FiO2 as tolerated currently at 50% 2. Continue tube feeding 3. ID recommendations for antibiotics 4. PT eval as tolerated Transfer to [facility] [place]. Critical care time 40 minutes DALTON DURBIN MD, [facility] Oct 27, 2018 10:13
--- NOTE | 2018-10-27 15:10 | CONS ---
Assessment/Plan Assessment/Plan Hospital Course (Demo Recall) # sepsis, respiratory - recurrent sepsis on 10/08/2018 due to aspiration pneumonia, HCAP, improved - possible aspiration pneumonia, recurrent pneumonia due to citrobacter, improved - acute on chronic hypoxic and hypercarbic respiratory failure - persistent leukocytosis likely due to steroid margination - h/o tracheostomy on 08/26/2018 - h/o "Increased mild left apical pneumothorax" per CXR on 09/19/2018; no pneumothorax mentioned on subsequent CXR - h/o pneumomediastinum - h/o VAT on 08/11/2018 - h/o asthma/COPD exacerbation - h/o acute tracheobronchitis - h/o MAC infection but CT chest did not demonstrate features suggestive of this per chart review - On this admission AFB smear x3 have been negative (10/21/18 0600, 10/21/18 1530, and 10/22/18 0040), pneumocystis jiroveci 10/18/18 not detected. - h/o HCAP due to citrobacter, based on resp culture on 09/13/2018 - h/o aspergillus growing out of resp culture per (pulm note by Dr. Lopez) on 07/25/2018 - h/o elevated 1,3 [id number] level = 232 on 08/06/2018 - h/o MSSA septicemia # GI - diarrhea, C diff on 10/09/2018 was negative - h/o HSV esophagitis, took acyclovir x21 days from 08/26/2018 - h/o EGD, esophageal biopsy showed esophageal squamous mucosa showing acute inflammation, granulation tissue, and ulceration consistent with ulcerative esophagitis, rare multinucleated cells with morphology suggestive of vial cytopathic changes, No cardiac mucosa, intestinal metaplasia, dysplasia, or malignancy defined - GERD - PUD # renal/ - Hypokalemia, recurrent - CKD 2 - BPH # cardiac - tachycardia, persistent - ACD - HTN - HLD # endo - T2DM - Hgb A1c 7.2% - secondary adrenal insufficiency; steroid dependent - Hypoparathyroidism - Hypercalcemia - Pamidronate was ordered # neuro - toxic metabolic encephalopathy - Cervical myopathy - Severe cervical spinal cord stenosis with cord compression from C3-C5, s/p laminectomy in ~03/2018 - Chronic pain syndrome - Functional quadriplegia - Seizure d/o # other chronic conditions - RA with chronic steroid dependence - Immunocompromised status - Fibromyalgia - DDD - H/o multiple rib fracture - Pt completed: meropenem (09/25/2018-10/02/2018), vancomycin (09/25/18-09/28/18), pip/tazo (10/09/2018-10/15/2018) Recommendations: - Pending: AFB culture x3 (AFB smear x3 have resulted negative) particular to r/o mycobacterium avium intracellulaire, quantiferon TB gold, coccidioides serology - Continue Bactrim for pneumocystis PPX - Continue to monitor off other systemic antibiotic Consultation Date/Type/Reason Admit Date/Time Oct 09, 2018 at 12:16 Initial Consult Date 10/12/18 Requesting Provider: NOLA VIDAL MD Date/Time of Note DATE: 10/27/18 TIME: 15:10 Exam/Review of Systems Exam Vitals Vital Signs Date Temp Pulse Resp B/P (MAP) Pulse Ox O2 O2 Flow FiO2 Time Delivery Rate 10/27/18 123 28 92 70 13:10 10/27/18 98.8 107/72 Mechanical 12:00 (84) Ventilator Intake and Output 10/26/18 10/26/18 10/27/18 1515:00 23:00 07:00 IntakeIntake Total 370 ml 370 ml 420 ml OutputOutput Total 450 ml 450 ml 330 ml BalanceBalance -80 ml -80 ml 90 ml Head: normocephalic, atraumatic Eyes: nl conjunctiva, EOMI, nl lids, nl sclera, PERRL Respiratory: clear to auscultation, normal air movement Cardiovascular: regular rate and rhythm, nl pulses Gastrointestinal: soft, nl liver, spleen, non-tender Results Result Diagram: 10/27/18 0449 10/27/18 0449 Results 24hrs Laboratory Tests Test 10/26/18 15:22 10/26/18 20:59 10/27/18 02:22 10/27/18 04:49 Bedside Glucose 153 154 186 White Blood Count 22.1 H Red Blood Count 3.28 L Hemoglobin 9.6 L Hematocrit 30.9 L Mean Corpuscular 94.2 Volume Mean Corpuscular 29.3 Hemoglobin Mean Corpuscular 31.1 L Hemoglobin Concent Red Cell 17.7 H Distribution Width Platelet Count 351 Mean Platelet Volume 11.9 H Immature 5.000 H Granulocytes % Neutrophils % 81.7 H Lymphocytes % 3.2 L Monocytes % 9.6 Eosinophils % 0.0 Basophils % 0.5 Nucleated Red Blood 0.0 Cells % Immature 1.100 H Granulocytes # Neutrophils # 18.1 H Lymphocytes # 0.7 L Monocytes # 2.1 H Eosinophils # 0.0 Basophils # 0.1 Nucleated Red Blood 0.0 Cells # Sodium Level 131 L Potassium Level 4.4 Chloride Level 91 L Carbon Dioxide Level 35 H Anion Gap 5 Blood Urea Nitrogen 37 H Creatinine 0.37 L Est Glomerular > 60 Filtrat Rate mL/min Glucose Level 118 Calcium Level 7.9 L Phosphorus Level 3.5 Magnesium Level 1.7 Test 10/27/18 08:37 10/27/18 13:27 Bedside Glucose 129 175 Medications Medication Current Medications Acetaminophen (Tylenol Liquid) 650 mg Q4H PRN GTB MILD PAIN(1-3)OR ELEVATED TEMP Last administered on 10/16/18at 07:52; Admin Dose 650 MG; Start 10/09/18 at 14:00 Al Hydrox/Mg Hydrox/Simethicone (Mag-Al Plus) 15 ml Q6H PRN PO GASTROINTESTINAL UPSET Last administered on 10/17/18 13:18; Admin Dose 15 ML; Start 10/09/18 at 14:00 Eye Lubricant (Artificial Tears Oph) 1 drop Q6H PRN BOTH EYES DRY EYES; Start 10/09/18 at 14:00 Bisacodyl (Dulcolax Supp) 10 mg DAILY PRN [place] CONSTIPATION; Start 10/09/18 at 14:00 Clonidine (Catapres) 0.1 mg DAILY PRN GTB ELEVATED BLOOD PRESSURE; Start 10/09/18 at 14:00 Diltiazem HCl (Cardizem Iv) 5 mg Q4 PRN IV ELEVATED HEART RATE Last administered on 10/18/18at 01:09; Admin Dose 5 MG; Start 10/09/18 at 14:00 Diphenhydramine HCl (Benadryl Liquid Cup) 25 mg Q6 PRN GTB ITCHING Last administered on 10/22/18at 20:25; Admin Dose 25 MG; Start 10/09/18 at 14:00 Duloxetine HCl (Cymbalta) 30 mg DAILY PO Last administered on 10/27/18 08:17; Admin Dose 30 MG; Start 10/10/18 at 09:00 Epoetin Arpan (Epogen (Esrd)) 10,000 units TuSa@1300 SC Last administered on 10/25/18 13:00; Admin Dose 10,000 UNITS; Start 10/11/18 at 13:00 Gabapentin (Neurontin Liquid) 400 mg Q8 GTB Last administered on 10/27/18 13:26; Admin Dose 400 MG; Start 10/09/18 at 15:30 Hydralazine HCl (Apresoline) 10 mg Q4H PRN IV ELEVATED BLOOD PRESSURE; Start 10/09/18 at 14:00 Hydroxychloroquine Sulfate (Plaquenil) 200 mg BID PO Last administered on 10/27/18 08:17; Admin Dose 200 MG; Start 10/09/18 at 21:00 Diagnostic Test (Pha) (Accu-Chek) 1 ea 02 XX Last administered on 10/25/18 01:46; Admin Dose 1 EA; Start 10/10/18 at 02:00 Insulin Aspart (Novolog Insulin Pen) NOVOLOG *CUSTOM* ALGORITHM Q6H SC Last administered on 10/27/18 13:29; Admin Dose 1 UNIT; Start 10/09/18 at 14:00 Lactobacillus Acidophilus (Florajen3 Capsule) 1 each BID GTB Last administered on 10/27/18 08:31; Admin Dose 1 EACH; Start 10/09/18 at 21:00 Lansoprazole (Prevacid) 30 mg BID@06,18 GTB Last administered on 10/27/18 05:41; Admin Dose 30 MG; Start 10/09/18 at 18:00 Levetiracetam (Keppra Liquid) 500 mg BID GTB Last administered on 10/27/18 08:16; Admin Dose 500 MG; Start 10/09/18 at 21:00 Magnesium Oxide (Mag-Ox 400) 400 mg BID GTB Last administered on 10/27/18 08:17; Admin Dose 400 MG; Start 10/09/18 at 21:00 Metoclopramide HCl (Reglan) 10 mg TID IV Last administered on 10/27/18 13:25; Admin Dose 10 MG; Start 10/09/18 at 21:00 Miconazole Nitrate (Miconazole 2% Cr) 1 applic BID TOP Last administered on 10/27/18at 08:20; Admin Dose 1 APPLIC; Start 10/09/18 at 21:00 Miconazole Nitrate (Miconazole 2% Cr) 1 applic Q12 PRN TOP rash; Start 10/09/18 at 14:00 Ondansetron HCl (Zofran Inj) 4 mg Q4H PRN IV NAUSEA AND/OR VOMITING Last administered on 10/19/18at 16:37; Admin Dose 4 MG; Start 10/09/18 at 14:00 Polyethylene Glycol (Miralax) 17 gm DAILY PRN GTB CONSTIPATION; Start 10/09/18 at 14:00 Senna (Senokot) 2 tab Q8 PRN PO CONSTIPATION; Start 10/09/18 at 14:00 Trimethoprim/ Sulfamethoxazole (Bactrim Susp) 40 ml DAILY GTB Last administered on 10/27/18at 08:21; Admin Dose 40 ML; Start 10/10/18 at 09:00 Zolpidem Tartrate (Ambien) 5 mg HS PRN PO INSOMNIA Last administered on 10/21/18at 02:34; Admin Dose 5 MG; Start 10/09/18 at 14:00 Miscellaneous Information 1 ea NOTE XX ; Start 10/09/18 at 15:00 Glucose (Glutose) 15 gm Q15M PRN PO DECREASED GLUCOSE; Start 10/09/18 at 15:00 Glucose (Glutose) 22.5 gm Q15M PRN PO DECREASED GLUCOSE; Start 10/09/18 at 15:00 Dextrose (D50w Syringe) 25 ml Q15M PRN IV DECREASED GLUCOSE; Start 10/09/18 at 15:00 Dextrose (D50w Syringe) 50 ml Q15M PRN IV DECREASED GLUCOSE; Start 10/09/18 at 15:00 Glucagon (Glucagen) 1 mg Q15M PRN IM DECREASED GLUCOSE; Start 10/09/18 at 15:00 Glucose (Glutose) 15 gm Q15M PRN BUCCAL DECREASED GLUCOSE; Start 10/09/18 at 15:00 Sodium Chloride 500 ml @ 500 mls/hr Q1H PRN IV BLOOD PRESSURE SUPPORT Last administered on 10/10/18at 07:59; Admin Dose 500 MLS/HR; Start 10/09/18 at 19:30 Albuterol (Ventolin Hfa) 4 puff Q6H RESP THERAPY INH Last administered on 10/27/18 13:01; Admin Dose 4 PUFF; Start 10/10/18 at 02:00 Ipratropium [place] (Atrovent Hfa) 4 puff Q6H RESP THERAPY INH Last administered on 10/27/18 13:01; Admin Dose 4 PUFF; Start 10/10/18 at 02:00 Lorazepam (Ativan) 1 mg Q4H PRN GTB AGITATION/ANXIETY Last administered on 10/19/18 17:35; Admin Dose 1 MG; Start 10/14/18 at 13:00 Lisinopril (Zestril) 2.5 mg DAILY PO Last administered on 10/26/18 09:41; Admin Dose 2.5 MG; Start 10/15/18 at 09:00 Linagliptin (Tradjenta) 5 mg DAILY PO Last administered on 10/27/18 08:20; Admin Dose 5 MG; Start 10/16/18 at 10:30 Fentanyl (Duragesic 50 Mcg/Hr Patch) 1 patch Q72H TRANSDERM Last administered on 10/27/18 02:19; Admin Dose 1 PATCH; Start 10/17/18 at 20:30 Lorazepam (Ativan) 2 mg Q6H GTB Last administered on 10/27/18 08:34; Admin Dose 2 MG; Start 10/20/18 at 15:00 Quetiapine Fumarate (Seroquel) 100 mg BID GTB Last administered on 10/27/18 08:17; Admin Dose 100 MG; Start 10/21/18 at 21:00 Hydromorphone HCl (Dilaudid) 6 mg Q4H PRN PO MODERATE PAIN LEVEL 7-10 Last administered on 10/27/18 13:25; Admin Dose 6 MG; Start 10/21/18 at 22:00 Calcium Carbonate (Ca Carbonate) 1,250 mg QID GTB Last administered on 10/27/18 12:52; Admin Dose 1,250 MG; Start 10/24/18 at 13:00 Calcitriol (Rocaltrol) 1 mcg BID PO Last administered on 10/27/18 08:17; Admin Dose 1 MCG; Start 10/25/18 at 21:00 Carvedilol (Coreg) 6.25 mg BID PO ; Start 10/27/18 at 21:00 Methylprednisolone Sodium Succinate (Solu-Medrol) 40 mg DAILY IV ; Start 10/28/18 at 09:00; Stop 10/30/18 at 09:01 CAMELIA VALENTINE MD Oct 27, 2018 15:10
--- NOTE | 2018-10-27 16:26 | PN ---
Date/Time of Note Date/Time of Note DATE: 10/27/18 TIME: 16:18 Assessment/Plan VTE Prophylaxis [place] [facility]: 6 SCD applied [place] [facility] Yes Pharmacological prophylaxis: NA/contraindicated Pharm contraindication: other Lines/Catheters [facility] Mid Line Assessment/Plan Hospital Course Patient is currently on 70% FiO2 and PEEP of 8, gets tachycardic, stable blood pressure no fever. Assessment/Plan - Acute on chronic hypoxemic respiratory failure with underlying ARDS, continue ventilatory support. Dr. Villa is following in pulmonology consultation. - Acute kidney injury, continue to monitor BUN and creatinine. G-tube feeding changed to renal source. Dr. Hobson is following in nephrology consultation. -Tachycardia, Dr. Joshi is following in cardiology consultation. - Cardiomyopathy with EF 35-40% - Rheumatoid arthritis with steroid dependence. The patient's pain seems to be controlled with the current dose of fentanyl. - Dysphagia. Continue GT feeding. - Anemia of chronic disease. - Hypoparathyroidism with recent hypercalcemia, status post pamidronate. - Hypertension. - Functional quadriplegia - Hx of severe cervical spinal cord stenosis with cord compression from C3-C5, s/p laminectomy. - History of fibromyalgia rheumatica - Hx of VAT on 08/11/2018 Critical care time spent 30 minutes. Further recommendations based on clinical course. Plan of care discussed with Dr. Rosales Result Diagram: 10/27/18 0449 10/27/18 0449 Results 24hrs Laboratory Tests Test 10/26/18 20:59 10/27/18 02:22 10/27/18 04:49 10/27/18 08:37 Bedside Glucose 154 186 129 White Blood Count 22.1 H Red Blood Count 3.28 L Hemoglobin 9.6 L Hematocrit 30.9 L Mean Corpuscular 94.2 Volume Mean Corpuscular 29.3 Hemoglobin Mean Corpuscular 31.1 L Hemoglobin Concent Red Cell 17.7 H Distribution Width Platelet Count 351 Mean Platelet Volume 11.9 H Immature 5.000 H Granulocytes % Neutrophils % 81.7 H Lymphocytes % 3.2 L Monocytes % 9.6 Eosinophils % 0.0 Basophils % 0.5 Nucleated Red Blood 0.0 Cells % Immature 1.100 H Granulocytes # Neutrophils # 18.1 H Lymphocytes # 0.7 L Monocytes # 2.1 H Eosinophils # 0.0 Basophils # 0.1 Nucleated Red Blood 0.0 Cells # Sodium Level 131 L Potassium Level 4.4 Chloride Level 91 L Carbon Dioxide Level 35 H Anion Gap 5 Blood Urea Nitrogen 37 H Creatinine 0.37 L Est Glomerular > 60 Filtrat Rate mL/min Glucose Level 118 Calcium Level 7.9 L Phosphorus Level 3.5 Magnesium Level 1.7 Test 10/27/18 13:27 Bedside Glucose 175 Exam/Review of Systems Exam Vitals Vital Signs Date Temp Pulse Resp B/P (MAP) Pulse Ox O2 O2 Flow FiO2 Time Delivery Rate 10/27/18 97.8 108 20 100/68 96 Mechanical 16:00 (79) Ventilator 10/27/18 70 15:20 Intake and Output 10/26/18 10/26/18 10/27/18 1515:00 23:00 07:00 IntakeIntake Total 370 ml 370 ml 420 ml OutputOutput Total 450 ml 450 ml 330 ml BalanceBalance -80 ml -80 ml 90 ml Exam Constitutional: alert, oriented, frail Neck: other (trach) Respiratory: diminished breath sounds Cardiovascular: regular rate and rhythm Gastrointestinal: soft, non-tender, other Neurological: nl mental status Results Results 24hrs Laboratory Tests Test 10/26/18 20:59 10/27/18 02:22 10/27/18 04:49 10/27/18 08:37 Bedside Glucose 154 186 129 White Blood Count 22.1 H Red Blood Count 3.28 L Hemoglobin 9.6 L Hematocrit 30.9 L Mean Corpuscular 94.2 Volume Mean Corpuscular 29.3 Hemoglobin Mean Corpuscular 31.1 L Hemoglobin Concent Red Cell 17.7 H Distribution Width Platelet Count 351 Mean Platelet Volume 11.9 H Immature 5.000 H Granulocytes % Neutrophils % 81.7 H Lymphocytes % 3.2 L Monocytes % 9.6 Eosinophils % 0.0 Basophils % 0.5 Nucleated Red Blood 0.0 Cells % Immature 1.100 H Granulocytes # Neutrophils # 18.1 H Lymphocytes # 0.7 L Monocytes # 2.1 H Eosinophils # 0.0 Basophils # 0.1 Nucleated Red Blood 0.0 Cells # Sodium Level 131 L Potassium Level 4.4 Chloride Level 91 L Carbon Dioxide Level 35 H Anion Gap 5 Blood Urea Nitrogen 37 H Creatinine 0.37 L Est Glomerular > 60 Filtrat Rate mL/min Glucose Level 118 Calcium Level 7.9 L Phosphorus Level 3.5 Magnesium Level 1.7 Test 10/27/18 13:27 Bedside Glucose 175 Medications Medication Current Medications Acetaminophen (Tylenol Liquid) 650 mg Q4H PRN GTB MILD PAIN(1-3)OR ELEVATED TEMP Last administered on 10/16/18 07:52; Admin Dose 650 MG; Start 10/09/18 at 14:00 Al Hydrox/Mg Hydrox/Simethicone (Mag-Al Plus) 15 ml Q6H PRN PO GASTROINTESTINAL UPSET Last administered on 10/17/18 13:18; Admin Dose 15 ML; Start 10/09/18 at 14:00 Eye Lubricant (Artificial Tears Oph) 1 drop Q6H PRN BOTH EYES DRY EYES; Start 10/09/18 at 14:00 Bisacodyl (Dulcolax Supp) 10 mg DAILY PRN [place] CONSTIPATION; Start 10/09/18 at 14:00 Clonidine (Catapres) 0.1 mg DAILY PRN GTB ELEVATED BLOOD PRESSURE; Start 10/09/18 at 14:00 Diltiazem HCl (Cardizem Iv) 5 mg Q4 PRN IV ELEVATED HEART RATE Last administered on 10/18/18 01:09; Admin Dose 5 MG; Start 10/09/18 at 14:00 Diphenhydramine HCl (Benadryl Liquid Cup) 25 mg Q6 PRN GTB ITCHING Last administered on 10/22/18 20:25; Admin Dose 25 MG; Start 10/09/18 at 14:00 Duloxetine HCl (Cymbalta) 30 mg DAILY PO Last administered on 10/27/18 08:17; Admin Dose 30 MG; Start 10/10/18 at 09:00 Epoetin Arpan (Epogen (Esrd)) 10,000 units TuSa@1300 SC Last administered on 13:00; Admin Dose 10,000 UNITS; Start 10/11/18 at 13:00 Gabapentin (Neurontin Liquid) 400 mg Q8 GTB Last administered on 10/27/18 13:26; Admin Dose 400 MG; Start 10/09/18 at 15:30 Hydralazine HCl (Apresoline) 10 mg Q4H PRN IV ELEVATED BLOOD PRESSURE; Start 10/09/18 at 14:00 Hydroxychloroquine Sulfate (Plaquenil) 200 mg BID PO Last administered on 10/27/18 08:17; Admin Dose 200 MG; Start 10/09/18 at 21:00 Diagnostic Test (Pha) (Accu-Chek) 1 ea 02 XX Last administered on 10/25/18 01 :46; Admin Dose 1 EA; Start 10/10/18 at 02:00 Insulin Aspart (Novolog Insulin Pen) NOVOLOG *CUSTOM* ALGORITHM Q6H SC Last administered on 10/27/18 13:29; Admin Dose 1 UNIT; Start 10/09/18 at 14:00 Lactobacillus Acidophilus (Florajen3 Capsule) 1 each BID GTB Last administered on 10/27/18 08:31; Admin Dose 1 EACH; Start 10/09/18 at 21:00 Lansoprazole (Prevacid) 30 mg BID@06,18 GTB Last administered on 10/27/18 05:41; Admin Dose 30 MG; Start 10/09/18 at 18:00 Levetiracetam (Keppra Liquid) 500 mg BID GTB Last administered on 10/27/18 08:16; Admin Dose 500 MG; Start 10/09/18 at 21:00 Magnesium Oxide (Mag-Ox 400) 400 mg BID GTB Last administered on 10/27/18 08:17; Admin Dose 400 MG; Start 10/09/18 at 21:00 Metoclopramide HCl (Reglan) 10 mg TID IV Last administered on 10/27/18 13:25; Admin Dose 10 MG; Start 10/09/18 at 21:00 Miconazole Nitrate (Miconazole 2% Cr) 1 applic BID TOP Last administered on 10/27/18 08:20; Admin Dose 1 APPLIC; Start 10/09/18 at 21:00 Miconazole Nitrate (Miconazole 2% Cr) 1 applic Q12 PRN TOP rash; Start 10/09/18 at 14:00 Ondansetron HCl (Zofran Inj) 4 mg Q4H PRN IV NAUSEA AND/OR VOMITING Last administered on 10/19/18 16:37; Admin Dose 4 MG; Start 10/09/18 at 14:00 Polyethylene Glycol (Miralax) 17 gm DAILY PRN GTB CONSTIPATION; Start 10/09/18 at 14:00 Senna (Senokot) 2 tab Q8 PRN PO CONSTIPATION; Start 10/09/18 at 14:00 Trimethoprim/ Sulfamethoxazole (Bactrim Susp) 40 ml DAILY GTB Last administered on 10/27/18at 08:21; Admin Dose 40 ML; Start 10/10/18 at 09:00 Zolpidem Tartrate (Ambien) 5 mg HS PRN PO INSOMNIA Last administered on 10/21/18 at 02:34; Admin Dose 5 MG; Start 10/09/18 at 14:00 Miscellaneous Information 1 ea NOTE XX ; Start 10/09/18 at 15:00 Glucose (Glutose) 15 gm Q15M PRN PO DECREASED GLUCOSE; Start 10/09/18 at 15:00 Glucose (Glutose) 22.5 gm Q15M PRN PO DECREASED GLUCOSE; Start 10/09/18 at 15:00 Dextrose (D50w Syringe) 25 ml Q15M PRN IV DECREASED GLUCOSE; Start 10/09/18 at 15:00 Dextrose (D50w Syringe) 50 ml Q15M PRN IV DECREASED GLUCOSE; Start 10/09/18 at 15:00 Glucagon (Glucagen) 1 mg Q15M PRN IM DECREASED GLUCOSE; Start 10/09/18 at 15:00 Glucose (Glutose) 15 gm Q15M PRN BUCCAL DECREASED GLUCOSE; Start 10/09/18 at 15:00 Sodium Chloride 500 ml @ 500 mls/hr Q1H PRN IV BLOOD PRESSURE SUPPORT Last administered on 10/10/18at 07:59; Admin Dose 500 MLS/HR; Start 10/09/18 at 19:30 Albuterol (Ventolin Hfa) 4 puff Q6H RESP THERAPY INH Last administered on 10/27/18at 13:01; Admin Dose 4 PUFF; Start 10/10/18 at 02:00 Ipratropium [place] (Atrovent Hfa) 4 puff Q6H RESP THERAPY INH Last administered on 10/27/18at 13:01; Admin Dose 4 PUFF; Start 10/10/18 at 02:00 Lorazepam (Ativan) 1 mg Q4H PRN GTB AGITATION/ANXIETY Last administered on 10/19/18at 17:35; Admin Dose 1 MG; Start 10/14/18 at 13:00 Lisinopril (Zestril) 2.5 mg DAILY PO Last administered on 10/26/18 09:41; Admin Dose 2.5 MG; Start 10/15/18 at 09:00 Linagliptin (Tradjenta) 5 mg DAILY PO Last administered on 10/27/18 08:20; Admin Dose 5 MG; Start 10/16/18 at 10:30 Fentanyl (Duragesic 50 Mcg/Hr Patch) 1 patch Q72H TRANSDERM Last administered o n 10/27/18 02:19; Admin Dose 1 PATCH; Start 10/17/18 at 20:30 Lorazepam (Ativan) 2 mg Q6H GTB Last administered on 10/27/18 15:21; Admin Dose 2 MG; Start 10/20/18 at 15:00 Quetiapine Fumarate (Seroquel) 100 mg BID GTB Last administered on 10/27/18 08:17; Admin Dose 100 MG; Start 10/21/18 at 21:00 Hydromorphone HCl (Dilaudid) 6 mg Q4H PRN PO MODERATE PAIN LEVEL 7-10 Last administered on 10/27/18 13:25; Admin Dose 6 MG; Start 10/21/18 at 22:00 Calcium Carbonate (Ca Carbonate) 1,250 mg QID GTB Last administered on 10/27/18 12:52; Admin Dose 1,250 MG; Start 10/24/18 at 13:00 Calcitriol (Rocaltrol) 1 mcg BID PO Last administered on 10/27/18 08:17; Admin Dose 1 MCG; Start 10/25/18 at 21:00 Carvedilol (Coreg) 6.25 mg BID PO ; Start 10/27/18 at 21:00 Methylprednisolone Sodium Succinate (Solu-Medrol) 40 mg DAILY IV ; Start 10/28/18 at 09:00; Stop 10/30/18 at 09:01 CAROLYN LANGLEY Oct 27, 2018 16:26
[2018-10-28] VITALS (36 sets, daily range): BP systolic 78–144; BP diastolic 61–105; PULSE 96–124; RESP 18–30
[2018-10-28] MEDS: IPRATROPIUM (HFA) 12.9 GM INHALER INH SCH ×4 (01:25→20:08)
[2018-10-28] MEDS: ALBUTEROL HFA 8 GM INHALER INH SCH ×4 (01:25→20:08)
[2018-10-28] MEDS ORDERED: SOD CHLORIDE 0.9% 500 ML IV ONE (02:00)
[2018-10-28] MEDS: ACCU-CHEK XX SCH (02:00)
[2018-10-28] MEDS: HYDROmorphONE 2 MG TAB PO PRN ×3 (02:04→16:34)
[2018-10-28] MEDS: INSULIN ASPART [NOVOLOG] 3 ML PEN SC SCH ×4 (02:15→20:00)
[2018-10-28] MEDS: LORAZEPAM 1 MG TAB GTB SCH ×4 (02:17→20:17)
[2018-10-28] MEDS: GABAPENTIN (50 MG/ML PO SYG) GTB SCH ×3 (05:08→22:47)
[2018-10-28] MEDS: LANSOPRAZOLE 30 MG CAP GTB SCH ×2 (05:08→17:05)
[2018-10-28] MEDS: METOCLOPRAMIDE 10 MG INJ IV SCH ×3 (08:20→20:17)
[2018-10-28] MEDS: LEVETIRACETAM (100 MG/ML) 5ML CUP GTB SCH ×2 (08:20→20:17)
[2018-10-28] MEDS: TRIMETHOPRIM/SULFAMETHOX (PO SYG) GTB SCH (08:21)
[2018-10-28] MEDS: HYDROXYCHLOROQUINE 200 MG TAB PO SCH ×2 (08:21→20:17)
[2018-10-28] MEDS: METHYLPREDNISOLONE 40 MG INJ IV SCH (08:21)
[2018-10-28] MEDS: CA CARBONATE (250 MG/ML) 5ML CUP GTB SCH ×4 (08:21→20:17)
[2018-10-28] MEDS: L ACIDOPHIL/B LACTIS/B LONGUM CAPSULE GTB SCH ×2 (08:21→20:17)
[2018-10-28] MEDS: LINAGLIPTIN 5 MG TABLET PO SCH (08:22)
[2018-10-28] MEDS: MAGNESIUM OXIDE 400 MG TAB GTB SCH ×2 (08:22→20:17)
[2018-10-28] MEDS: DULOXETINE 30 MG CAP DR PO SCH (08:22)
[2018-10-28] MEDS: QUETIAPINE 100 MG TAB GTB SCH ×2 (08:23→20:17)
[2018-10-28] MEDS: BALSAM PERU/CASTOR OIL 60 GM TUBE TOP SCH ×2 (08:24→20:18)
[2018-10-28] MEDS: LISINOPRIL 5 MG TAB PO SCH (08:24)
[2018-10-28] MEDS: MICONAZOLE 2% 30 GM CR TOP SCH ×2 (08:24→20:18)
--- NOTE | 2018-10-28 08:53 | PN ---
DATE: 10/28/2018 SUBJECTIVE: The patient overnight was noted to be hypotensive, was given a bolus of IV fluids. No o ther events noted. OBJECTIVE: VITAL SIGNS: Blood pressure is 86/63, respirations 21, pulse 96, temperature 98.4. HEENT: Head is normocephalic. NECK: Supple. HEART: Regular rate. LUNGS: Show diminished breath sounds at the base. ABDOMEN: Soft, nontender to palpation. No rebound or guarding. EXTREMITIES: Negative for clubbing, cyanosis, no edema. DERMATOLOGIC: No rashes. MUSCULOSKELETAL: No joint effusion. NEUROLOGIC: No change in exam. MEDICATIONS: Reviewed. LABORATORY DATA: Reviewed. The patient has sodium 133, BUN 33, creatinine 0.36. White count 25.5, hemoglobin 8.8, platelet count is 309. ASSESSMENT AND PLAN: 1. Nonoliguric acute kidney injury. Etiology is secondary to hemodynamics. Renal function is impro lori. Continue to monitor. 2. Hypernatremia. Etiology is possibly multifactorial. We will do a full workup. We will check ur ine sodium, urine osmolarity, serum osmolarity, free water flushes have been held. Continue to monit or. 4. Hypomagnesemia. Continue to monitor and replete. 5. Mineral bone disorder, monitor calcium and phosphorus levels. 6. Ventilator-dependent respiratory failure. Vent settings and ABG was reviewed. Continue to monit or. 7. Adrenal insufficiency. Continue Cortef. 8. Anemia. Continue to monitor hemoglobin and hematocrit levels. 9. Dysphagia. Continue tube feeding. 10. Sepsis secondary to pneumonia. The patient is completing antibiotic course. 11. Hypotension. The patient is status post IV fluids. We will continue to monitor. We will give IV fluids as needed. 12. Tachyarrhythmia. Continue current treatment plan. 13. Seizure disorder. Continue medical management. 14. Anxiety disorder. Continue anxiolytics. Dictated By: UNA ROY DO NR/NTS Conf#: [id number] DID#: [id number] CC: NOLA VIDAL MD; CAMELIA VALENTINE MD;*EndCC*
[2018-10-28] MEDS: SOD CHLORIDE 0.9% 1,000 ML IV SCH ×2 (09:44→23:35)
--- NOTE | 2018-10-28 10:35 | CONS ---
Consult Date/Type/Reason Admit Date/Time Oct 09, 2018 at 12:16 Initial Consult Date 10/09/18 Type of Consult Pulmonary Requesting Provider: NOLA VIDAL MD Date/Time of Note DATE: 10/28/18 TIME: 10:34 Subjective Continues mechanical ventilation with progressive hypoxemia again. Intermittent agitation of sedation. Objective Vital Signs Date Temp Pulse Resp B/P (MAP) Pulse Ox O2 O2 Flow FiO2 Time Delivery Rate 10/28/18 106 21 95/65 (75) 95 Mechanical 09:00 Ventilator 10/28/18 70 08:00 10/28/18 98.1 08:00 Intake and Output 10/27/18 10/27/18 10/28/18 1515:00 23:00 07:00 IntakeIntake Total 500 ml 320 ml 380 ml OutputOutput Total 500 ml 95 ml 250 ml BalanceBalance 0 ml 225 ml 130 ml Exam GENERAL: Elderly appearing gentleman on mechanical ventilation via tracheostomy VITAL SIGNS: per chart NECK: Supple. No JVD or lymphadenopathy. CARDIAC EXAM: S1, S2. No added sounds or murmurs. CHEST: Diminished air entry bilaterally with rales ABDOMEN: Soft, nontender. No guarding or rebound. EXTREMITIES: No cyanosis, clubbing or edema. NEUROLOGIC: Generalized weakness. No focal deficits. Vent Setting Ventilator Support Mode: AC Fraction of Inspired Oxygen pe: 70 Positive End Expiratory Pressu: 8.0 Results/Medications Result Diagram: 10/28/18 0452 10/28/18 0452 Results 24 hrs Laboratory Tests Test 10/27/18 13:27 10/27/18 20:28 10/28/18 02:13 10/28/18 04:52 Bedside Glucose 175 174 177 White Blood Count 25.5 H Red Blood Count 3.01 L Hemoglobin 8.8 L Hematocrit 28.6 L Mean Corpuscular 95.0 Volume Mean Corpuscular 29.2 Hemoglobin Mean Corpuscular 30.8 L Hemoglobin Concent Red Cell 18.2 H Distribution Width Platelet Count 309 Mean Platelet 12.0 H Volume Immature 4.300 H Granulocytes % Neutrophils % 81.7 H Lymphocytes % 3.0 L Monocytes % 10.5 Eosinophils % 0.0 Basophils % 0.5 Nucleated Red 0.0 Blood Cells % Immature 1.100 H Granulocytes # Neutrophils # 20.8 H Lymphocytes # 0.8 Monocytes # 2.7 H Eosinophils # 0.0 Basophils # 0.1 Nucleated Red 0.0 Blood Cells # Sodium Level 133 L Potassium Level 4.1 Chloride Level 95 L Carbon Dioxide 34 H Level Anion Gap 4 L Blood Urea 33 H Nitrogen Creatinine 0.36 L Est Glomerular > 60 Filtrat Rate mL/min Glucose Level 125 Calcium Level 7.6 L Phosphorus Level 3.6 Magnesium Level 1.7 Test 10/28/18 08:00 10/28/18 09:14 Bedside Glucose 155 Lab Scanned Report REFERENCE LAB Medications Current Medications Acetaminophen (Tylenol Liquid) 650 mg Q4H PRN GTB MILD PAIN(1-3)OR ELEVATED TEMP Last administered on 10/16/18 07:52; Admin Dose 650 MG; Start 10/09/18 at 14:00 Al Hydrox/Mg Hydrox/Simethicone (Mag-Al Plus) 15 ml Q6H PRN PO GASTROINTESTINAL UPSET Last administered on 10/17/18 13:18; Admin Dose 15 ML; Start 10/09/18 at 14:00 Eye Lubricant (Artificial Tears Oph) 1 drop Q6H PRN BOTH EYES DRY EYES; Start 10/09/18 at 14:00 Bisacodyl (Dulcolax Supp) [address] CONSTIPATION; Start 10/09/18 at 14:00 Clonidine (Catapres) 0.1 mg DAILY PRN GTB ELEVATED BLOOD PRESSURE; Start 10/09/18 at 14:00 Diltiazem HCl (Cardizem Iv) 5 mg Q4 PRN IV ELEVATED HEART RATE Last administered on 10/18/18 01:09; Admin Dose 5 MG; Start 10/09/18 at 14:00 Diphenhydramine HCl (Benadryl Liquid Cup) 25 mg Q6 PRN GTB ITCHING Last administered on 10/22/18 20:25; Admin Dose 25 MG; Start 10/09/18 at 14:00 Duloxetine HCl (Cymbalta) 30 mg DAILY PO Last administered on 10/28/18 08:22; Admin Dose 30 MG; Start 10/10/18 at 09:00 Epoetin Arpan (Epogen (Esrd)) 10,000 units TuSa@1300 SC Last administered on 10/25/18 13:00; Admin Dose 10,000 UNITS; Start 10/11/18 at 13:00 Gabapentin (Neurontin Liquid) 400 mg Q8 GTB Last administered on 10/28/18 05:08; Admin Dose 400 MG; Start 10/09/18 at 15:30 Hydralazine HCl (Apresoline) 10 mg Q4H PRN IV ELEVATED BLOOD PRESSURE; Start 10/09/18 at 14:00 Hydroxychloroquine Sulfate (Plaquenil) 200 mg BID PO Last administered on 10/28/18 08:21; Admin Dose 200 MG; Start 10/09/18 at 21:00 Diagnostic Test (Pha) (Accu-Chek) 1 ea 02 XX Last administered on 10/25/18 01:46; Admin Dose 1 EA; Start 10/10/18 at 02:00 Insulin Aspart (Novolog Insulin Pen) NOVOLOG *CUSTOM* ALGORITHM Q6H SC Last administered on 10/28/18 08:29; Admin Dose 1 UNIT; Start 10/09/18 at 14:00 Lactobacillus Acidophilus (Florajen3 Capsule) 1 each BID GTB Last administered on 10/28/18 08:21; Admin Dose 1 EACH; Start 10/09/18 at 21:00 Lansoprazole (Prevacid) 30 mg BID@06,18 GTB Last administered on 10/28/18 05:08; Admin Dose 30 MG; Start 10/09/18 at 18:00 Levetiracetam (Keppra Liquid) 500 mg BID GTB Last administered on 10/28/18 08 :20; Admin Dose 500 MG; Start 10/09/18 at 21:00 Magnesium Oxide (Mag-Ox 400) 400 mg BID GTB Last administered on 10/28/18 08:22; Admin Dose 400 MG; Start 10/09/18 at 21:00 Metoclopramide HCl (Reglan) 10 mg TID IV Last administered on 10/28/18 08:20; Admin Dose 10 MG; Start 10/09/18 at 21:00 Miconazole Nitrate (Miconazole 2% Cr) 1 applic BID TOP Last administered on 10/28/18 08:24; Admin Dose 1 APPLIC; Start 10/09/18 at 21:00 Miconazole Nitrate (Miconazole 2% Cr) 1 applic Q12 PRN TOP rash; Start 10/09/18 at 14:00 Ondansetron HCl (Zofran Inj) 4 mg Q4H PRN IV NAUSEA AND/OR VOMITING Last a dministered on 10/19/18 16:37; Admin Dose 4 MG; Start 10/09/18 at 14:00 Polyethylene Glycol (Miralax) 17 gm DAILY PRN GTB CONSTIPATION; Start 10/09/18 at 14:00 Senna (Senokot) 2 tab Q8 PRN PO CONSTIPATION; Start 10/09/18 at 14:00 Trimethoprim/ Sulfamethoxazole (Bactrim Susp) 40 ml DAILY GTB Last administered on 10/28/18 08:21; Admin Dose 40 ML; Start 10/10/18 at 09:00 Zolpidem Tartrate (Ambien) 5 mg HS PRN PO INSOMNIA Last administered on 10/21/18 02:34; Admin Dose 5 MG; Start 10/09/18 at 14:00 Miscellaneous Information 1 ea NOTE XX ; Start 10/09/18 at 15:00 Glucose (Glutose) 15 gm Q15M PRN PO DECREASED GLUCOSE; Start 10/09/18 at 15:00 Glucose (Glutose) 22.5 gm Q15M PRN PO DECREASED GLUCOSE; Start 10/09/18 at 15:00 Dextrose (D50w Syringe) 25 ml Q15M PRN IV DECREASED GLUCOSE; Start 10/09/18 at 15:00 Dextrose (D50w Syringe) 50 ml Q15M PRN IV DECREASED GLUCOSE; Start 10/09/18 at 15:00 Glucagon (Glucagen) 1 mg Q15M PRN IM DECREASED GLUCOSE; Start 10/09/18 at 15:00 Glucose (Glutose) 15 gm Q15M PRN BUCCAL DECREASED GLUCOSE; Start 10/09/18 at 15:00 Sodium Chloride 500 ml @ 500 mls/hr Q1H PRN IV BLOOD PRESSURE SUPPORT Last administered on 10/10/18 07:59; Admin Dose 500 MLS/HR; Start 10/09/18 at 19:30 Albuterol (Ventolin Hfa) 4 puff Q6H RESP THERAPY INH Last administered on 10/28/18 09:14; Admin Dose 4 PUFF; Start 10/10/18 at 02:00 Ipratropium [place] (Atrovent Hfa) 4 puff Q6H RESP THERAPY INH Last administered on 10/28/18 09:14; Admin Dose 4 PUFF; Start 10/10/18 at 02:00 Lorazepam (Ativan) 1 mg Q4H PRN GTB AGITATION/ANXIETY Last administered on 10/19/18 17:35; Admin Dose 1 MG; Start 10/14/18 at 13:00 Lisinopril (Zestril) 2.5 mg DAILY PO Last administered on 10/26/18 09:41; Admin Dose 2.5 MG; Start 10/15/18 at 09:00 Linagliptin (Tradjenta) 5 mg DAILY PO Last administered on 10/28/18 08:22; Admin Dose 5 MG; Start 10/16/18 at 10:30 Fentanyl (Duragesic 50 Mcg/Hr Patch) 1 patch Q72H TRANSDERM Last administered on 10/27/18 02:19; Admin Dose 1 PATCH; Start 10/17/18 at 20:30 Lorazepam (Ativan) 2 mg Q6H GTB Last administered on 10/28/18 09:44; Admin Dose 2 MG; Start 10/20/18 at 15:00 Quetiapine Fumarate (Seroquel) 100 mg BID GTB Last administered on 10/28/18 08:23; Admin Dose 100 MG; Start 10/21/18 at 21:00 Hydromorphone HCl (Dilaudid) 6 mg Q4H PRN PO MODERATE PAIN LEVEL 7-10 Last administered on 10/28/18 02:04; Admin Dose 6 MG; Start 10/21/18 at 22:00 Calcium Carbonate (Ca Carbonate) 1,250 mg QID GTB Last administered on 10/28/18 08:21; Admin Dose 1,250 MG; Start 10/24/18 at 13:00 Carvedilol (Coreg) 6.25 mg BID PO Last administered on 10/27/18 20:21; Admin Dose 6.25 MG; Start 10/27/18 at 21:00 Methylprednisolone Sodium Succinate (Solu-Medrol) 40 mg DAILY IV Last administered on 10/28/18 08:21; Admin Dose 40 MG; Start 10/28/18 at 09:00; Stop 10/30/18 at 09:01 Calcitriol (Rocaltrol) 1 mcg BID PO ; Start 10/28/18 at 09:00 Sodium Chloride 1,000 ml @ 75 mls/hr [id number] IV Last administered on 10/28/18at 09:44; Admin Dose 75 MLS/HR; Start 10/28/18 at 10:00 Assessment/Plan Hospital Course (Demo Recall) IMP: 1. Acute on chronic hypoxemic respiratory failure with underlying acute respiratory distress syndrome. FiO2 increased to 70% with a PEEP of 8. 2. History of HSV esophagitis. 3. Chronic sepsis. 4. History of rheumatoid arthritis. 5. C-spine disease with functional quadriplegia. 6. Dysphagia with G-tube. PLAN: 1. Continue mechanical, decrease FiO2 as tolerated 2. Continue tube feeding 3. ID recommendations for antibiotics 4. PT eval as tolerated Palliative care consultation is overall prognosis extremely poor and patient is not improving. Critical care time 40 minutes DALTON DURBIN MD, [facility] Oct 28, 2018 10:35
[2018-10-28] MEDS: CALCITRIOL 0.5 MCG CAPSULE PO SCH ×2 (11:00→20:17)
--- NOTE | 2018-10-28 12:02 | CONS ---
Assessment/Plan Assessment/Plan Hospital Course (Demo Recall) IMPRESSION: 1. Tachycardia- S tach. [place] due to anxiety/infection/cardiomyopathy, multifactorial 2. Hypertension with borderline hypotension at this time. -still borderline Hotn 3. Abnormal electrocardiogram at baseline. 4. Chronic respiratory failure, status post tracheostomy.-weaning vent support 5. Dysphagia, status post G-tube. 6. Quadriplegia. 7. Renal insufficiency, on steroids. 8. Chronic obstructive pulmonary disease. 9. Rheumatoid arthritis. 10. Chronic kidney disease. 11. Diabetes mellitus. 12.Adrenal insufficiency 14. cardiomyopathy-EF 35-40% by echo this admit Recc -ICU -Vent support as necessary -Follow volume status closely and spot dose lasix as necessary, actually s/p IVF bolus this am and started on IVF -Continue abx's and f/u cx data -continue steroids -Continue BB and OLAMIDE as tolerated only with both held today Consultation Date/Type/Reason Admit Date/Time Oct 09, 2018 at 12:16 Initial Consult Date 10/09/18 Type of Consult Cardiology Reason for Consultation tachycardia Requesting Provider: NOLA VIDAL MD Date/Time of Note DATE: 10/28/18 TIME: 11:58 Exam/Review of Systems Vital Signs Vitals Vital Signs Date Temp Pulse Resp B/P (MAP) Pulse Ox O2 O2 Flow FiO2 Time Delivery Rate 10/28/18 115 28 91 70 11:20 10/28/18 95/65 (75) Mechanical 09:00 Ventilator 10/28/18 98.1 08:00 Intake and Output 10/27/18 10/27/18 10/28/18 1515:00 23:00 07:00 IntakeIntake Total 500 ml 320 ml 380 ml OutputOutput Total 500 ml 95 ml 250 ml BalanceBalance 0 ml 225 ml 130 ml Exam Exam Review of Systems: CONSTITUTIONAL: No fevers, chills. PULMONARY: trached CARDIOVASCULAR: No chest pain/palpitations GASTROINTESTINAL: No nausea/vomiting. GENITOURINARY: No hematuria/dysuria. MUSCULOSKELETAL: No myagias/arthalgias. PSYCHIATRIC: The patient denies depression. NEUROLOGIC: quad Constitutional: alert Psych: no complaints Head: normocephalic ENMT: mucosa pink and moist Neck: supple, jvd (9 cm water) Respiratory: diminished breath sounds (at bases/B) Cardiovascular: regular rate and rhythm Gastrointestinal: soft, non-tender Musculoskeletal: muscle tone (normal) Extremities: edema (none) Neurological: lethargic Labs Result Diagram: 10/28/18 0452 10/28/18 0452 Results 24hrs Laboratory Tests Test 10/27/18 13:27 10/27/18 20:28 10/28/18 02:13 10/28/18 04:52 Bedside Glucose 175 174 177 White Blood Count 25.5 H Red Blood Count 3.01 L Hemoglobin 8.8 L Hematocrit 28.6 L Mean Corpuscular 95.0 Volume Mean Corpuscular 29.2 Hemoglobin Mean Corpuscular 30.8 L Hemoglobin Concent Red Cell 18.2 H Distribution Width Platelet Count 309 Mean Platelet 12.0 H Volume Immature 4.300 H Granulocytes % Neutrophils % 81.7 H Lymphocytes % 3.0 L Monocytes % 10.5 Eosinophils % 0.0 Basophils % 0.5 Nucleated Red 0.0 Blood Cells % Immature 1.100 H Granulocytes # Neutrophils # 20.8 H Lymphocytes # 0.8 Monocytes # 2.7 H Eosinophils # 0.0 Basophils # 0.1 Nucleated Red 0.0 Blood Cells # Sodium Level 133 L Potassium Level 4.1 Chloride Level 95 L Carbon Dioxide 34 H Level Anion Gap 4 L Blood Urea 33 H Nitrogen Creatinine 0.36 L Est Glomerular > 60 Filtrat Rate mL/min Glucose Level 125 Calcium Level 7.6 L Phosphorus Level 3.6 Magnesium Level 1.7 Test 10/28/18 08:00 10/28/18 09:14 Bedside Glucose 155 Lab Scanned Report REFERENCE LAB Medications Medications Current Medications Acetaminophen (Tylenol Liquid) 650 mg Q4H PRN GTB MILD PAIN(1-3)OR ELEVATED T EMP Last administered on 10/16/18at 07:52; Admin Dose 650 MG; Start 10/09/18 at 14:00 Al Hydrox/Mg Hydrox/Simethicone (Mag-Al Plus) 15 ml Q6H PRN PO GASTROINTESTINAL UPSET Last administered on 10/17/18 13:18; Admin Dose 15 ML; Start 10/09/18 at 14:00 Eye Lubricant (Artificial Tears Oph) 1 drop Q6H PRN BOTH EYES DRY EYES; Start 10/09/18 at 14:00 Bisacodyl (Dulcolax Supp) [address] CONSTIPATION; Start 10/09/18 at 14:00 Clonidine (Catapres) 0.1 mg DAILY PRN GTB ELEVATED BLOOD PRESSURE; Start 10/09/18 at 14:00 Diltiazem HCl (Cardizem Iv) 5 mg Q4 PRN IV ELEVATED HEART RATE Last administ ered on 10/18/18 01:09; Admin Dose 5 MG; Start 10/09/18 at 14:00 Diphenhydramine HCl (Benadryl Liquid Cup) 25 mg Q6 PRN GTB ITCHING Last administered on 10/22/18 20:25; Admin Dose 25 MG; Start 10/09/18 at 14:00 Duloxetine HCl (Cymbalta) 30 mg DAILY PO Last administered on 10/28/18 08:22; Admin Dose 30 MG; Start 10/10/18 at 09:00 Epoetin Arpan (Epogen (Esrd)) 10,000 units TuSa@1300 SC Last administered on 10/25/18 13:00; Admin Dose 10,000 UNITS; Start 10/11/18 at 13:00 Gabapentin (Neurontin Liquid) 400 mg Q8 GTB Last administered on 10/28/18 05:08; Admin Dose 400 MG; Start 10/09/18 at 15:30 Hydralazine HCl (Apresoline) 10 mg Q4H PRN IV ELEVATED BLOOD PRESSURE; Start 10/09/18 at 14:00 Hydroxychloroquine Sulfate (Plaquenil) 200 mg BID PO Last administered on 10/28/18 08:21; Admin Dose 200 MG; Start 10/09/18 at 21:00 Diagnostic Test (Pha) (Accu-Chek) 1 ea 02 XX Last administered on 10/25/18 01:46; Admin Dose 1 EA; Start 10/10/18 at 02:00 Insulin Aspart (Novolog Insulin Pen) NOVOLOG *CUSTOM* ALGORITHM Q6H SC Last administered on 10/28/18 08:29; Admin Dose 1 UNIT; Start 10/09/18 at 14:00 Lactobacillus Acidophilus (Florajen3 Capsule) 1 each BID GTB Last administered on 10/28/18 08:21; Admin Dose 1 EACH; Start 10/09/18 at 21:00 Lansoprazole (Prevacid) 30 mg BID@06,18 GTB Last administered on 10/28/18 05:08; Admin Dose 30 MG; Start 10/09/18 at 18:00 Levetiracetam (Keppra Liquid) 500 mg BID GTB Last administered on 10/28/18 08:20; Admin Dose 500 MG; Start 10/09/18 at 21:00 Magnesium Oxide (Mag-Ox 400) 400 mg BID GTB Last administered on 10/28/18 08:22; Admin Dose 400 MG; Start 10/09/18 at 21:00 Metoclopramide HCl (Reglan) 10 mg TID IV Last administered on 10/28/18 08:20; Admin Dose 10 MG; Start 10/09/18 at 21:00 Miconazole Nitrate (Miconazole 2% Cr) 1 applic BID TOP Last administered on 10/28/18 08:24; Admin Dose 1 APPLIC; Start 10/09/18 at 21:00 Miconazole Nitrate (Miconazole 2% Cr) 1 applic Q12 PRN TOP rash; Start 10/09/18 at 14:00 Ondansetron HCl (Zofran Inj) 4 mg Q4H PRN IV NAUSEA AND/OR VOMITING Last administered on 10/19/18 16:37; Admin Dose 4 MG; Start 10/09/18 at 14:00 Polyethylene Glycol (Miralax) 17 gm DAILY PRN GTB CONSTIPATION; Start 10/09/18 at 14:00 Senna (Senokot) 2 tab Q8 PRN PO CONSTIPATION; Start 10/09/18 at 14:00 Trimethoprim/ Sulfamethoxazole (Bactrim Susp) 40 ml DAILY GTB Last administered on 10/28/18 08:21; Admin Dose 40 ML; Start 10/10/18 at 09:00 Zolpidem Tartrate (Ambien) 5 mg HS PRN PO INSOMNIA Last administered on 10/21/18 02:34; Admin Dose 5 MG; Start 10/09/18 at 14:00 Miscellaneous Information 1 ea NOTE XX ; Start 10/09/18 at 15:00 Glucose (Glutose) 15 gm Q15M PRN PO DECREASED GLUCOSE; Start 10/09/18 at 15:00 Glucose (Glutose) 22.5 gm Q15M PRN PO DECREASED GLUCOSE; Start 10/09/18 at 15:00 Dextrose (D50w Syringe) 25 ml Q15M PRN IV DECREASED GLUCOSE; Start 10/09/18 at 15:00 Dextrose (D50w Syringe) 50 ml Q15M PRN IV DECREASED GLUCOSE; Start 10/09/18 at 15:00 Glucagon (Glucagen) 1 mg Q15M PRN IM DECREASED GLUCOSE; Start 10/09/18 at 15:00 Glucose (Glutose) 15 gm Q15M PRN BUCCAL DECREASED GLUCOSE; Start 10/09/18 at 15:00 Sodium Chloride 500 ml @ 500 mls/hr Q1H PRN IV BLOOD PRESSURE SUPPORT Last administered on 10/10/18 07:59; Admin Dose 500 MLS/HR; Start 10/09/18 at 19:30 Albuterol (Ventolin Hfa) 4 puff Q6H RESP THERAPY INH Last administered on 10/28/18 09:14; Admin Dose 4 PUFF; Start 10/10/18 at 02:00 Ipratropium [place] (Atrovent Hfa) 4 puff Q6H RESP THERAPY INH Last administer ed on 10/28/18 09:14; Admin Dose 4 PUFF; Start 10/10/18 at 02:00 Lorazepam (Ativan) 1 mg Q4H PRN GTB AGITATION/ANXIETY Last administered on 10/19/18 17:35; Admin Dose 1 MG; Start 10/14/18 at 13:00 Lisinopril (Zestril) 2.5 mg DAILY PO Last administered on 10/26/18 09:41; Admin Dose 2.5 MG; Start 10/15/18 at 09:00 Linagliptin (Tradjenta) 5 mg DAILY PO Last administered on 10/28/18 08:22; Admin Dose 5 MG; Start 10/16/18 at 10:30 Fentanyl (Duragesic 50 Mcg/Hr Patch) 1 patch Q72H TRANSDERM Last administered on 10/27/18 02:19; Admin Dose 1 PATCH; Start 10/17/18 at 20:30 Lorazepam (Ativan) 2 mg Q6H GTB Last administered on 10/28/18 09:44; Admin Dose 2 MG; Start 10/20/18 at 15:00 Quetiapine Fumarate (Seroquel) 100 mg BID GTB Last administered on 10/28/18 08:23; Admin Dose 100 MG; Start 10/21/18 at 21:00 Hydromorphone HCl (Dilaudid) 6 mg Q4H PRN PO MODERATE PAIN LEVEL 7-10 Last administered on 10/28/18 02:04; Admin Dose 6 MG; Start 10/21/18 at 22:00 Calcium Carbonate (Ca Carbonate) 1,250 mg QID GTB Last administered on 10/28/18 08:21; Admin Dose 1,250 MG; Start 10/24/18 at 13:00 Carvedilol (Coreg) 6.25 mg BID PO Last administered on 10/27/18 20:21; Admin Dose 6.25 MG; Start 10/27/18 at 21:00 Methylprednisolone Sodium Succinate (Solu-Medrol) 40 mg DAILY IV Last administered on 10/28/18 08:21; Admin Dose 40 MG; Start 10/28/18 at 09:00; Stop 10/30/18 at 09:01 Calcitriol (Rocaltrol) 1 mcg BID PO Last administered on 10/28/18 11:00; Admin Dose 1 MCG; Start 10/28/18 at 09:00 Sodium Chloride 1,000 ml @ 75 mls/hr [id number] IV Last administered on 10/28/18 09:44; Admin Dose 75 MLS/HR; Start 10/28/18 at 10:00 BRISA HAQUE Oct 28, 2018 12:02
--- NOTE | 2018-10-28 13:53 | CONS ---
Assessment/Plan Assessment/Plan Problems: (1) Hypocalcemia Onset Date: ~ 10/14/2018 Status: Acute Comment: Calcium is coming back up. Continue with replacement therapy Consultation Date/Type/Reason Admit Date/Time Oct 09, 2018 at 12:16 Initial Consult Date 10/12/18 Type of Consult Endocrinology Reason for Consultation Hypocalcemia Requesting Provider: NOLA VIDAL MD Date/Time of Note DATE: 10/28/18 TIME: 13:52 24 HR Interval Summary Free Text/Dictation No new complaints; marginally verbal Subjective hx not possible: pt non-verbal Exam/Review of Systems Exam Vitals Vital Signs Date Temp Pulse Resp B/P (MAP) Pulse Ox O2 O2 Flow FiO2 Time Delivery Rate 10/28/18 98.2 121 24 144/92 88 Mechanical 12:00 (109) Ventilator 10/28/18 70 11:20 Intake and Output 10/27/18 10/27/18 10/28/18 1515:00 23:00 07:00 IntakeIntake Total 500 ml 320 ml 420 ml OutputOutput Total 500 ml 95 ml 250 ml BalanceBalance 0 ml 225 ml 170 ml Exam Exam without change Results Result Diagram: 10/28/18 0452 10/28/18 0452 Results 24hrs Laboratory Tests Test 10/27/18 20:28 10/28/18 02:13 10/28/18 04:52 10/28/18 08:00 Bedside Glucose 174 177 155 White Blood Count 25.5 H Red Blood Count 3.01 L Hemoglobin 8.8 L Hematocrit 28.6 L Mean Corpuscular 95.0 Volume Mean Corpuscular 29.2 Hemoglobin Mean Corpuscular 30.8 L Hemoglobin Concent Red Cell 18.2 H Distribution Width Platelet Count 309 Mean Platelet 12.0 H Volume Immature 4.300 H Granulocytes % Neutrophils % 81.7 H Lymphocytes % 3.0 L Monocytes % 10.5 Eosinophils % 0.0 Basophils % 0.5 Nucleated Red 0.0 Blood Cells % Immature 1.100 H Granulocytes # Neutrophils # 20.8 H Lymphocytes # 0.8 Monocytes # 2.7 H Eosinophils # 0.0 Basophils # 0.1 Nucleated Red 0.0 Blood Cells # Sodium Level 133 L Potassium Level 4.1 Chloride Level 95 L Carbon Dioxide 34 H Level Anion Gap 4 L Blood Urea 33 H Nitrogen Creatinine 0.36 L Est Glomerular > 60 Filtrat Rate mL/min Glucose Level 125 Calcium Level 7.6 L Phosphorus Level 3.6 Magnesium Level 1.7 Test 10/28/18 09:14 10/28/18 10:00 Lab Scanned Report REFERENCE LAB Urine Random 32.64 Creatinine Urine Random 47 Sodium Urine Total 32.0 H Protein Medications Medication Current Medications Acetaminophen (Tylenol Liquid) 650 mg Q4H PRN GTB MILD PAIN(1-3)OR ELEVATED TEMP Last administered on 10/16/18 07:52; Admin Dose 650 MG; Start 10/09/18 at 14:00 Al Hydrox/Mg Hydrox/Simethicone (Mag-Al Plus) 15 ml Q6H PRN PO GASTROINTESTINAL UPSET Last administered on 10/17/18 13:18; Admin Dose 15 ML; Start 10/09/18 at 14:00 Eye Lubricant (Artificial Tears Oph) 1 drop Q6H PRN BOTH EYES DRY EYES; Start 10/09/18 at 14:00 Bisacodyl (Dulcolax Supp) 10 mg DAILY PRN [place] CONSTIPATION; Start 10/09/18 at 14:00 Clonidine (Catapres) 0.1 mg DAILY PRN GTB ELEVATED BLOOD PRESSURE; Start 10/09/18 at 14:00 Diltiazem HCl (Cardizem Iv) 5 mg Q4 PRN IV ELEVATED HEART RATE Last administered on 10/18/18 01:09; Admin Dose 5 MG; Start 10/09/18 at 14:00 Diphenhydramine HCl (Benadryl Liquid Cup) 25 mg Q6 PRN GTB ITCHING Last administered on 10/22/18 20:25; Admin Dose 25 MG; Start 10/09/18 at 14:00 Duloxetine HCl (Cymbalta) 30 mg DAILY PO Last administered on 10/28/18 08:22; Admin Dose 30 MG; Start 10/10/18 at 09:00 Epoetin Arpan (Epogen (Esrd)) 10,000 units TuSa@1300 SC Last administered on 10/25/18 13:00; Admin Dose 10,000 UNITS; Start 10/11/18 at 13:00 Gabapentin (Neurontin Liquid) 400 mg Q8 GTB Last administered on 10/28/18 05:08; Admin Dose 400 MG; Start 10/09/18 at 15:30 Hydralazine HCl (Apresoline) 10 mg Q4H PRN IV ELEVATED BLOOD PRESSURE; Start 10/09/18 at 14:00 Hydroxychloroquine Sulfate (Plaquenil) 200 mg BID PO Last administered on 10/28/18 08:21; Admin Dose 200 MG; Start 10/09/18 at 21:00 Diagnostic Test (Pha) (Accu-Chek) 1 ea 02 XX Last administered on 10/25/18 01:46; Admin Dose 1 EA; Start 10/10/18 at 02:00 Insulin Aspart (Novolog Insulin Pen) NOVOLOG *CUSTOM* ALGORITHM Q6H SC Last administered on 10/28/18 08:29; Admin Dose 1 UNIT; Start 10/09/18 at 14:00 Lactobacillus Acidophilus (Florajen3 Capsule) 1 each BID GTB Last administered on 10/28/18 08:21; Admin Dose 1 EACH; Start 10/09/18 at 21:00 Lansoprazole (Prevacid) 30 mg BID@06,18 GTB Last administered on 10/28/18 05:08; Admin Dose 30 MG; Start 10/09/18 at 18:00 Levetiracetam (Keppra Liquid) 500 mg BID GTB Last administered on 10/28/18 08:20; Admin Dose 500 MG; Start 10/09/18 at 21:00 Magnesium Oxide (Mag-Ox 400) 400 mg BID GTB Last administered on 10/28/18 08:22; Admin Dose 400 MG; Start 10/09/18 at 21:00 Metoclopramide HCl (Reglan) 10 mg TID IV Last administered on 10/28/18 12:26; Admin Dose 10 MG; Start 10/09/18 at 21:00 Miconazole Nitrate (Miconazole 2% Cr) 1 applic BID TOP Last administered on 10/28/18 08:24; Admin Dose 1 APPLIC; Start 10/09/18 at 21:00 Miconazole Nitrate (Miconazole 2% Cr) 1 applic Q12 PRN TOP rash; Start 10/09/18 at 14:00 Ondansetron HCl (Zofran Inj) 4 mg Q4H PRN IV NAUSEA AND/OR VOMITING Last administered on 10/19/18 16:37; Admin Dose 4 MG; Start 10/09/18 at 14:00 Polyethylene Glycol (Miralax) 17 gm DAILY PRN GTB CONSTIPATION; Start 10/09/18 at 14:00 Senna (Senokot) 2 tab Q8 PRN PO CONSTIPATION; Start 10/09/18 at 14:00 Trimethoprim/ Sulfamethoxazole (Bactrim Susp) 40 ml DAILY GTB Last administered on 10/28/18 08:21; Admin Dose 40 ML; Start 10/10/18 at 09:00 Zolpidem Tartrate (Ambien) 5 mg HS PRN PO INSOMNIA Last administered on 10/21/18 02:34; Admin Dose 5 MG; Start 10/09/18 at 14:00 Miscellaneous Information 1 ea NOTE XX ; Start 10/09/18 at 15:00 Glucose (Glutose) 15 gm Q15M PRN PO DECREASED GLUCOSE; Start 10/09/18 at 15:00 Glucose (Glutose) 22.5 gm Q15M PRN PO DECREASED GLUCOSE; Start 10/09/18 at 15:00 Dextrose (D50w Syringe) 25 ml Q15M PRN IV DECREASED GLUCOSE; Start 10/09/18 at 15:00 Dextrose (D50w Syringe) 50 ml Q15M PRN IV DECREASED GLUCOSE; Start 10/09/18 at 15:00 Glucagon (Glucagen) 1 mg Q15M PRN IM DECREASED GLUCOSE; Start 10/09/18 at 15:00 Glucose (Glutose) 15 gm Q15M PRN BUCCAL DECREASED GLUCOSE; Start 10/09/18 at 15:00 Sodium Chloride 500 ml @ 500 mls/hr Q1H PRN IV BLOOD PRESSURE SUPPORT Last administered on 10/10/18at 07:59; Admin Dose 500 MLS/HR; Start 10/09/18 at 19:30 Albuterol (Ventolin Hfa) 4 puff Q6H RESP THERAPY INH Last administered on 10/28/18 09:14; Admin Dose 4 PUFF; Start 10/10/18 at 02:00 Ipratropium [place] (Atrovent Hfa) 4 puff Q6H RESP THERAPY INH Last administered on 10/28/18 09:14; Admin Dose 4 PUFF; Start 10/10/18 at 02:00 Lorazepam (Ativan) 1 mg Q4H PRN GTB AGITATION/ANXIETY Last administered on 10/19/18 17:35; Admin Dose 1 MG; Start 10/14/18 at 13:00 Lisinopril (Zestril) 2.5 mg DAILY PO Last administered on 10/26/18 09:41; Admin Dose 2.5 MG; Start 10/15/18 at 09:00 Linagliptin (Tradjenta) 5 mg DAILY PO Last administered on 10/28/18 08:22; Admin Dose 5 MG; Start 10/16/18 at 10:30 Fentanyl (Duragesic 50 Mcg/Hr Patch) 1 patch Q72H TRANSDERM Last administered on 10/27/18 02:19; Admin Dose 1 PATCH; Start 10/17/18 at 20:30 Lorazepam (Ativan) 2 mg Q6H GTB Last administered on 10/28/18 09:44; Admin Dose 2 MG; Start 10/20/18 at 15:00 Quetiapine Fumarate (Seroquel) 100 mg BID GTB Last administered on 10/28/18 08:23; Admin Dose 100 MG; Start 10/21/18 at 21:00 Hydromorphone HCl (Dilaudid) 6 mg Q4H PRN PO MODERATE PAIN LEVEL 7-10 Last administered on 10/28/18 12:26; Admin Dose 6 MG; Start 10/21/18 at 22:00 Calcium Carbonate (Ca Carbonate) 1,250 mg QID GTB Last administered on 10/28/18 12:26; Admin Dose 1,250 MG; Start 10/24/18 at 13:00 Carvedilol (Coreg) 6.25 mg BID PO Last administered on 10/27/18 20:21; Admin Dose 6.25 MG; Start 10/27/18 at 21:00 Methylprednisolone Sodium Succinate (Solu-Medrol) 40 mg DAILY IV Last administered on 10/28/18 08:21; Admin Dose 40 MG; Start 10/28/18 at 09:00; Stop 10/30/18 at 09:01 Calcitriol (Rocaltrol) 1 mcg BID PO Last administered on 10/28/18 11:00; Admin Dose 1 MCG; Start 10/28/18 at 09:00 Sodium Chloride 1,000 ml @ 75 mls/hr [id number] IV Last administered on 10/28/18 09:44; Admin Dose 75 MLS/HR; Start 10/28/18 at 10:00 Metoprolol Tartrate (Lopressor) 5 mg Q4H PRN IV HR>110 Hold SBP<100; Start 10/28/18 at 12:30 KEV ISSA MD Oct 28, 2018 13:53
[2018-10-28] MEDS ORDERED: ERGOCALCIFEROL 50,000 UNIT CAP PO ONE (15:00)
--- NOTE | 2018-10-28 15:09 | PN ---
Date/Time of Note Date/Time of Note DATE: 10/28/18 TIME: 15:03 Assessment/Plan VTE Prophylaxis Risk score (from Ns)>0 risk: 10 SCD applied (from [facility] [place]): Yes Pharmacological prophylaxis: NA/contraindicated Pharm contraindication: bleeding Lines/Catheters IV Catheter Type (from [facility]): Mid Line Assessment/Plan Hospital Course Patient continues on ventilatory support, unable to tolerate FiO2 weaning, patient is currently on 70% FiO2 and PEEP of 8. Palliative care consult is requested. Assessment/Plan - Acute on chronic hypoxemic respiratory failure with underlying ARDS, continue ventilatory support. Dr. Villa is following in pulmonology consultation. - Acute kidney injury, continue to monitor BUN and creatinine. G-tube feeding changed to renal source. Dr. Hobson is following in nephrology consultation. -Tachycardia, Dr. Joshi is following in cardiology consultation. - Cardiomyopathy with EF 35-40% - Rheumatoid arthritis with steroid dependence. The patient's pain seems to be controlled with the current dose of fentanyl. - Dysphagia. Continue GT feeding. - Anemia of chronic disease. - Hypoparathyroidism with recent hypercalcemia, status post pamidronate. - Hypertension. - Functional quadriplegia - Hx of severe cervical spinal cord stenosis with cord compression from C3-C5, s/p laminectomy. - History of fibromyalgia rheumatica - Hx of VAT on 08/11/2018 - Poor prognosis, Dr. Zurita is asked to see patient in palliative care consultation. Critical care time spent 30 minutes. Further recommendations based on clinical course. Plan of care discussed with Dr. Rosales Result Diagram: 10/28/18 0452 10/28/18 0452 Results 24hrs Laboratory Tests Test 10/27/18 20:28 10/28/18 02:13 10/28/18 04:52 10/28/18 08:00 Bedside Glucose 174 177 155 White Blood 25.5 H Count Red Blood Count 3.01 L Hemoglobin 8.8 L Hematocrit 28.6 L Mean Corpuscular 95.0 Volume Mean Corpuscular 29.2 Hemoglobin Mean Corpuscular 30.8 L Hemoglobin Dawn nt Red Cell 18.2 H Distribution Width Platelet Count 309 Mean Platelet 12.0 H Volume Immature 4.300 H Granulocytes % Neutrophils % 81.7 H Lymphocytes % 3.0 L Monocytes % 10.5 Eosinophils % 0.0 Basophils % 0.5 Nucleated Red 0.0 Blood Cells % Immature 1.100 H Granulocytes # Neutrophils # 20.8 H Lymphocytes # 0.8 Monocytes # 2.7 H Eosinophils # 0.0 Basophils # 0.1 Nucleated Red 0.0 Blood Cells # Sodium Level 133 L Potassium Level 4.1 Chloride Level 95 L Carbon Dioxide 34 H Level Anion Gap 4 L Blood Urea 33 H Nitrogen Creatinine 0.36 L Est Glomerular > 60 Filtrat Rate mL/min Glucose Level 125 Calcium Level 7.6 L Phosphorus Level 3.6 Magnesium Level 1.7 Test 10/28/18 09:14 10/28/18 10:00 10/28/18 14:14 Lab Scanned REFERENCE LAB Report Urine Color YELLOW Urine Clarity SLIGHTLY CLOUDY A Urine pH 6.0 Urine Specific 1.024 [place] Urine Ketones NEGATIVE Urine Nitrite NEGATIVE Urine Bilirubin NEGATIVE Urine NEGATIVE Urobilinogen Urine Leukocyte NEGATIVE Esterase Urine 13 H Microscopic RBC Urine 3 Microscopic WBC Urine Squamous FEW Epithelial Cells Urine Bacteria MODERATE Urine Mucus MODERATE Urine Yeast MODERATE A (Budding) Urine Hemoglobin NEGATIVE Urine Osmolality 708 Urine Random 32.64 Creatinine Urine Random 47 Sodium Urine Glucose NEGATIVE Urine Total 32.0 H Protein Bedside Glucose 143 Exam/Review of Systems Exam Vitals Vital Signs Date Temp Pulse Resp B/P (MAP) Pulse Ox O2 O2 Flow FiO2 Time Delivery Rate 10/28/18 98.2 121 24 144/92 88 Mechanical 12:00 (109) Ventilator 10/28/18 70 11:20 Intake and Output 10/27/18 10/27/18 10/28/18 1515:00 23:00 07:00 IntakeIntake Total 500 ml 320 ml 420 ml OutputOutput Total 500 ml 95 ml 250 ml BalanceBalance 0 ml 225 ml 170 ml Exam Constitutional: alert, oriented, frail Neck: other (trach) Respiratory: diminished breath sounds Cardiovascular: regular rate and rhythm Gastrointestinal: soft, non-tender, other Neurological: nl mental status Results Results 24hrs Laboratory Tests Test 10/27/18 20:28 10/28/18 02:13 10/28/18 04:52 10/28/18 08:00 Bedside Glucose 174 177 155 White Blood 25.5 H Count Red Blood Count 3.01 L Hemoglobin 8.8 L Hematocrit 28.6 L Mean Corpuscular 95.0 Volume Mean Corpuscular 29.2 Hemoglobin Mean Corpuscular 30.8 L Hemoglobin Dawn nt Red Cell 18.2 H Distribution Width Platelet Count 309 Mean Platelet 12.0 H Volume Immature 4.300 H Granulocytes % Neutrophils % 81.7 H Lymphocytes % 3.0 L Monocytes % 10.5 Eosinophils % 0.0 Basophils % 0.5 Nucleated Red 0.0 Blood Cells % Immature 1.100 H Granulocytes # Neutrophils # 20.8 H Lymphocytes # 0.8 Monocytes # 2.7 H Eosinophils # 0.0 Basophils # 0.1 Nucleated Red 0.0 Blood Cells # Sodium Level 133 L Potassium Level 4.1 Chloride Level 95 L Carbon Dioxide 34 H Level Anion Gap 4 L Blood Urea 33 H Nitrogen Creatinine 0.36 L Est Glomerular > 60 Filtrat Rate mL/min Glucose Level 125 Calcium Level 7.6 L Phosphorus Level 3.6 Magnesium Level 1.7 Test 10/28/18 09:14 10/28/18 10:00 10/28/18 14:14 Lab Scanned REFERENCE LAB Report Urine Color YELLOW Urine Clarity SLIGHTLY CLOUDY A Urine pH 6.0 Urine Specific 1.024 [place] Urine Ketones NEGATIVE Urine Nitrite NEGATIVE Urine Bilirubin NEGATIVE Urine NEGATIVE Urobilinogen Urine Leukocyte NEGATIVE Esterase Urine 13 H Microscopic RBC Urine 3 Microscopic WBC Urine Squamous FEW Epithelial Cells Urine Bacteria MODERATE Urine Mucus MODERATE Urine Yeast MODERATE A (Budding) Urine Hemoglobin NEGATIVE Urine Osmolality 708 Urine Random 32.64 Creatinine Urine Random 47 Sodium Urine Glucose NEGATIVE Urine Total 32.0 H Protein Bedside Glucose 143 Medications Medication Current Medications Acetaminophen (Tylenol Liquid) 650 mg Q4H PRN GTB MILD PAIN(1-3)OR ELEVATED TEMP Last administered on 10/16/18at 07:52; Admin Dose 650 MG; Start 10/09/18 at 14:00 Al Hydrox/Mg Hydrox/Simethicone (Mag-Al Plus) 15 ml Q6H PRN PO GASTROINTESTINAL UPSET Last administered on 10/17/18at 13:18; Admin Dose 15 ML; Start 10/09/18 at 14:00 Eye Lubricant (Artificial Tears Oph) 1 drop Q6H PRN BOTH EYES DRY EYES; Start 10/09/18 at 14:00 Bisacodyl (Dulcolax Supp) 10 mg DAILY PRN [place] CONSTIPATION; Start 10/09/18 at 14:00 Clonidine (Catapres) 0.1 mg DAILY PRN GTB ELEVATED BLOOD PRESSURE; Start 10/09/18 at 14:00 Diltiazem HCl (Cardizem Iv) 5 mg Q4 PRN IV ELEVATED HEART RATE Last administered on 10/18/18 01:09; Admin Dose 5 MG; Start 10/09/18 at 14:00 Diphenhydramine HCl (Benadryl Liquid Cup) 25 mg Q6 PRN GTB ITCHING Last admini stered on 10/22/18 20:25; Admin Dose 25 MG; Start 10/09/18 at 14:00 Duloxetine HCl (Cymbalta) 30 mg DAILY PO Last administered on 10/28/18 08:22; Admin Dose 30 MG; Start 10/10/18 at 09:00 Epoetin Arpan (Epogen (Esrd)) 10,000 units TuSa@1300 SC Last administered on 10/25/18 13:00; Admin Dose 10,000 UNITS; Start 10/11/18 at 13:00 Gabapentin (Neurontin Liquid) 400 mg Q8 GTB Last administered on 10/28/18 14:15; Admin Dose 400 MG; Start 10/09/18 at 15:30 Hydralazine HCl (Apresoline) 10 mg Q4H PRN IV ELEVATED BLOOD PRESSURE; Start 10/09/18 at 14:00 Hydroxychloroquine Sulfate (Plaquenil) 200 mg BID PO Last administered on 10/28/18 08:21; Admin Dose 200 MG; Start 10/09/18 at 21:00 Diagnostic Test (Pha) (Accu-Chek) 1 ea 02 XX Last administered on 10/25/18 01:46; Admin Dose 1 EA; Start 10/10/18 at 02:00 Insulin Aspart (Novolog Insulin Pen) NOVOLOG *CUSTOM* ALGORITHM Q6H SC Last administered on 10/28/18 08:29; Admin Dose 1 UNIT; Start 10/09/18 at 14:00 Lactobacillus Acidophilus (Florajen3 Capsule) 1 each BID GTB Last administered on 10/28/18 08:21; Admin Dose 1 EACH; Start 10/09/18 at 21:00 Lansoprazole (Prevacid) 30 mg BID@06,18 GTB Last administered on 10/28/18 05:08; Admin Dose 30 MG; Start 10/09/18 at 18:00 Levetiracetam (Keppra Liquid) 500 mg BID GTB Last administered on 10/28/18 08:20; Admin Dose 500 MG; Start 10/09/18 at 21:00 Magnesium Oxide (Mag-Ox 400) 400 mg BID GTB Last administered on 10/28/18 08:22; Admin Dose 400 MG; Start 10/09/18 at 21:00 Metoclopramide HCl (Reglan) 10 mg TID IV Last administered on 10/28/18 12:26; Admin Dose 10 MG; Start 10/09/18 at 21:00 Miconazole Nitrate (Miconazole 2% Cr) 1 applic BID TOP Last administered on 10/28/18 08:24; Admin Dose 1 APPLIC; Start 10/09/18 at 21:00 Miconazole Nitrate (Miconazole 2% Cr) 1 applic Q12 PRN TOP rash; Start 10/09/18 at 14:00 Ondansetron HCl (Zofran Inj) 4 mg Q4H PRN IV NAUSEA AND/OR VOMITING Last administered on 10/19/18at 16:37; Admin Dose 4 MG; Start 10/09/18 at 14:00 Polyethylene Glycol (Miralax) 17 gm DAILY PRN GTB CONSTIPATION; Start 10/09/18 at 14:00 Senna (Senokot) 2 tab Q8 PRN PO CONSTIPATION; Start 10/09/18 at 14:00 Trimethoprim/ Sulfamethoxazole (Bactrim Susp) 40 ml DAILY GTB Last administered on 10/28/18 08:21; Admin Dose 40 ML; Start 10/10/18 at 09:00 Zolpidem Tartrate (Ambien) 5 mg HS PRN PO INSOMNIA Last administered on 10/21/18at 02:34; Admin Dose 5 MG; Start 10/09/18 at 14:00 Miscellaneous Information 1 ea NOTE XX ; Start 10/09/18 at 15:00 Glucose (Glutose) 15 gm Q15M PRN PO DECREASED GLUCOSE; Start 10/09/18 at 15:00 Glucose (Glutose) 22.5 gm Q15M PRN PO DECREASED GLUCOSE; Start 10/09/18 at 15:00 Dextrose (D50w Syringe) 25 ml Q15M PRN IV DECREASED GLUCOSE; Start 10/09/18 at 15:00 Dextrose (D50w Syringe) 50 ml Q15M PRN IV DECREASED GLUCOSE; Start 10/09/18 at 15:00 Glucagon (Glucagen) 1 mg Q15M PRN IM DECREASED GLUCOSE; Start 10/09/18 at 15:00 Glucose (Glutose) 15 gm Q15M PRN BUCCAL DECREASED GLUCOSE; Start 10/09/18 at 15:00 Sodium Chloride 500 ml @ 500 mls/hr Q1H PRN IV BLOOD PRESSURE SUPPORT Last administered on 10/10/18 07:59; Admin Dose 500 MLS/HR; Start 10/09/18 at 19:30 Albuterol (Ventolin Hfa) 4 puff Q6H RESP THERAPY INH Last administered on 10/28/18 09:14; Admin Dose 4 PUFF; Start 10/10/18 at 02:00 Ipratropium [place] (Atrovent Hfa) 4 puff Q6H RESP THERAPY INH Last administered on 10/28/18 09:14; Admin Dose 4 PUFF; Start 10/10/18 at 02:00 Lorazepam (Ativan) 1 mg Q4H PRN GTB AGITATION/ANXIETY Last administered on 17:35; Admin Dose 1 MG; Start 10/14/18 at 13:00 Lisinopril (Zestril) 2.5 mg DAILY PO Last administered on 10/26/18 09:41; Admin Dose 2.5 MG; Start 10/15/18 at 09:00 Linagliptin (Tradjenta) 5 mg DAILY PO Last administered on 10/28/18 08:22; Admin Dose 5 MG; Start 10/16/18 at 10:30 Fentanyl (Duragesic 50 Mcg/Hr Patch) 1 patch Q72H TRANSDERM Last administered on 10/27/18 02:19; Admin Dose 1 PATCH; Start 10/17/18 at 20:30 Lorazepam (Ativan) 2 mg Q6H GTB Last administered on 10/28/18 14:15; Admin Dose 2 MG; Start 10/20/18 at 15:00 Quetiapine Fumarate (Seroquel) 100 mg BID GTB Last administered on 10/28/18 08:23; Admin Dose 100 MG; Start 10/21/18 at 21:00 Hydromorphone HCl (Dilaudid) 6 mg Q4H PRN PO MODERATE PAIN LEVEL 7-10 Last administered on 10/28/18 12:26; Admin Dose 6 MG; Start 10/21/18 at 22:00 Calcium Carbonate (Ca Carbonate) 1,250 mg QID GTB Last administered on 10/28/18at 12:26; Admin Dose 1,250 MG; Start 10/24/18 at 13:00 Carvedilol (Coreg) 6.25 mg BID PO Last administered on 10/27/18 20:21; Admin Dose 6.25 MG; Start 10/27/18 at 21:00 Methylprednisolone Sodium Succinate (Solu-Medrol) 40 mg DAILY IV Last administered on 10/28/18at 08:21; Admin Dose 40 MG; Start 10/28/18 at 09:00; Stop 10/30/18 at 09:01 Calcitriol (Rocaltrol) 1 mcg BID PO Last administered on 10/28/18at 11:00; Admin Dose 1 MCG; Start 10/28/18 at 09:00 Sodium Chloride 1,000 ml @ 75 mls/hr [id number] IV Last administered on 10/28/18at 09:44; Admin Dose 75 MLS/HR; Start 10/28/18 at 10:00 Metoprolol Tartrate (Lopressor) 5 mg Q4H PRN IV HR>110 Hold SBP<100; Start 10/28/18 at 12:30 CAROLYN LANGLEY Oct 28, 2018 15:09
--- NOTE | 2018-10-28 15:21 | CONS ---
Assessment/Plan Assessment/Plan Hospital Course (Demo Recall) # sepsis, respiratory - recurrent sepsis on 10/08/2018 due to aspiration pneumonia, HCAP, improved - possible aspiration pneumonia, recurrent pneumonia due to citrobacter, improved - acute on chronic hypoxic and hypercarbic respiratory failure - persistent leukocytosis likely due to steroid margination - h/o tracheostomy on 08/26/2018 - h/o "Increased mild left apical pneumothorax" per CXR on 09/19/2018; no pneumothorax mentioned on subsequent CXR - h/o pneumomediastinum - h/o VAT on 08/11/2018 - h/o asthma/COPD exacerbation - h/o acute tracheobronchitis - h/o MAC infection but CT chest did not demonstrate features suggestive of this per chart review - On this admission AFB smear x3 have been negative (10/21/18 0600, 10/21/18 1530, and 10/22/18 0040), pneumocystis jiroveci 10/18/18 not detected. Coccioides screen negative. TB Quant Gold neg. - h/o HCAP due to citrobacter, based on resp culture on 09/13/2018 - h/o aspergillus growing out of resp culture per (pulm note by Dr. Lopez) on 07/25/2018 - h/o elevated 1,3 [id number] level = 232 on 08/06/2018 - h/o MSSA septicemia # GI - diarrhea, C diff on 10/09/2018 was negative - h/o HSV esophagitis, took acyclovir x21 days from 08/26/2018 - h/o EGD, esophageal biopsy showed esophageal squamous mucosa showing acute inflammation, granulation tissue, and ulceration consistent with ulcerative esophagitis, rare multinucleated cells with morphology suggestive of vial cytopathic changes, No cardiac mucosa, intestinal metaplasia, dysplasia, or malignancy defined - GERD - PUD # renal/ - Hypokalemia, recurrent - CKD 2 - BPH # cardiac - tachycardia, persistent - ACD - HTN - HLD # endo - T2DM - Hgb A1c 7.2% - secondary adrenal insufficiency; steroid dependent - Hypoparathyroidism - Hypercalcemia - Pamidronate was ordered # neuro - toxic metabolic encephalopathy - Cervical myopathy - Severe cervical spinal cord stenosis with cord compression from C3-C5, s/p laminectomy in ~03/2018 - Chronic pain syndrome - Functional quadriplegia - Seizure d/o # other chronic conditions - RA with chronic steroid dependence - Immunocompromised status - Fibromyalgia - DDD - H/o multiple rib fracture - Pt completed: meropenem (09/25/2018-10/02/2018), vancomycin (09/25/18-09/28/18), pip/tazo (10/09/2018-10/15/2018) Recommendations: - Pending: AFB culture x3 (AFB smear x3 have resulted negative) particular to r/o mycobacterium avium intracellulaire - Continue Bactrim for pneumocystis PPX - Continue to monitor off other systemic antibiotic Plan was d/w ARIANNA Vicente and with Dr. Davila. Thank you Total critical care time spent: 40 min. Consultation Date/Type/Reason Admit Date/Time Oct 09, 2018 at 12:16 Initial Consult Date 10/12/18 Type of Consult ID Requesting Provider: NOLA VIDAL MD Date/Time of Note DATE: 10/28/18 TIME: 15:18 24 HR Interval Summary Free Text/Dictation Per d/w ARIANNA Vicente, the patient overnight had an episode of hypotension for which he received 500ml bolus. The RN states he is now on fluids at 75ml per hour. Fio2 increased to 70% today. WBC 25.5 today. Patient is being turned and cleaned by RN currently. Exam/Review of Systems Exam Vitals Vital Signs Date Temp Pulse Resp B/P (MAP) Pulse Ox O2 O2 Flow FiO2 Time Delivery Rate 10/28/18 98.2 121 24 144/92 88 Mechanical 12:00 (109) Ventilator 10/28/18 70 11:20 Intake and Output 10/27/18 10/27/18 10/28/18 1515:00 23:00 07:00 IntakeIntake Total 500 ml 320 ml 420 ml OutputOutput Total 500 ml 95 ml 250 ml BalanceBalance 0 ml 225 ml 170 ml Allergies Coded Allergies No Known Allergy (Unverified10/12/18) Exam Constitutional: non-verbal, frail, other (awake, being turned/cleaned by nsg.) Head: normocephalic, atraumatic Eyes: nl conjunctiva, nl lids, nl sclera ENMT: nl external ears & nose, nl nasal mucosa & septum, mucosa pink and moist (OP exam limited) Neck: supple, non-tender, other (trach site is midline, site c/d/i, on vent, fio2 70%) Respiratory: normal air movement, diminished breath sounds Cardiovascular: regular rate and rhythm, nl pulses, other (RUE PICC site is c/d/i) Gastrointestinal: soft, non-tender, other (GT site is c/d/i, rectal tube in place - being flushed by RN) Musculoskeletal: nl extremities to inspection Extremities: normal pulses Neurological: lethargic, other (eye tracks, follows simple commands, able to mouth words) Skin: nl turgor, other (stage II coccygeal ulcer); No rash or lesions Results Result Diagram: 10/28/18 0452 10/28/18 0452 Results 24hrs Laboratory Tests Test 10/27/18 20:28 10/28/18 02:13 10/28/18 04:52 10/28/18 08:00 Bedside Glucose 174 177 155 White Blood 25.5 H Count Red Blood Count 3.01 L Hemoglobin 8.8 L Hematocrit 28.6 L Mean Corpuscular 95.0 Volume Mean Corpuscular 29.2 Hemoglobin Mean Corpuscular 30.8 L Hemoglobin Dawn nt Red Cell 18.2 H Distribution Width Platelet Count 309 Mean Platelet 12.0 H Volume Immature 4.300 H Granulocytes % Neutrophils % 81.7 H Lymphocytes % 3.0 L Monocytes % 10.5 Eosinophils % 0.0 Basophils % 0.5 Nucleated Red 0.0 Blood Cells % Immature 1.100 H Granulocytes # Neutrophils # 20.8 H Lymphocytes # 0.8 Monocytes # 2.7 H Eosinophils # 0.0 Basophils # 0.1 Nucleated Red 0.0 Blood Cells # Sodium Level 133 L Potassium Level 4.1 Chloride Level 95 L Carbon Dioxide 34 H Level Anion Gap 4 L Blood Urea 33 H Nitrogen Creatinine 0.36 L Est Glomerular > 60 Filtrat Rate mL/min Glucose Level 125 Calcium Level 7.6 L Phosphorus Level 3.6 Magnesium Level 1.7 Test 10/28/18 09:14 10/28/18 10:00 10/28/18 14:14 Lab Scanned REFERENCE LAB Report Urine Color YELLOW Urine Clarity SLIGHTLY CLOUDY A Urine pH 6.0 Urine Specific 1.024 [place] Urine Ketones NEGATIVE Urine Nitrite NEGATIVE Urine Bilirubin NEGATIVE Urine NEGATIVE Urobilinogen Urine Leukocyte NEGATIVE Esterase Urine 13 H Microscopic RBC Urine 3 Microscopic WBC Urine Squamous FEW Epithelial Cells Urine Bacteria MODERATE Urine Mucus MODERATE Urine Yeast MODERATE A (Budding) Urine Hemoglobin NEGATIVE Urine Osmolality 708 Urine Random 32.64 Creatinine Urine Random 47 Sodium Urine Glucose NEGATIVE Urine Total 32.0 H Protein Bedside Glucose 143 Medications Medication Current Medications Acetaminophen (Tylenol Liquid) 650 mg Q4H PRN GTB MILD PAIN(1-3)OR ELEVATED TEMP Last administered on 10/16/18 07:52; Admin Dose 650 MG; Start 10/09/18 at 14:00 Al Hydrox/Mg Hydrox/Simethicone (Mag-Al Plus) 15 ml Q6H PRN PO GASTROINTESTINAL UPSET Last administered on 10/17/18 13:18; Admin Dose 15 ML; Start 10/09/18 at 14:00 Eye Lubricant (Artificial Tears Oph) 1 drop Q6H PRN BOTH EYES DRY EYES; Start 10/09/18 at 14:00 Bisacodyl (Dulcolax Supp) 10 mg DAILY PRN [place] CONSTIPATION; Start 10/09/18 at 14:00 Clonidine (Catapres) 0.1 mg DAILY PRN GTB ELEVATED BLOOD PRESSURE; Start 10/09/18 at 14:00 Diltiazem HCl (Cardizem Iv) 5 mg Q4 PRN IV ELEVATED HEART RATE Last administered on 10/18/18 01:09; Admin Dose 5 MG; Start 10/09/18 at 14:00 Diphenhydramine HCl (Benadryl Liquid Cup) 25 mg Q6 PRN GTB ITCHING Last administered on 10/22/18 20:25; Admin Dose 25 MG; Start 10/09/18 at 14:00 Duloxetine HCl (Cymbalta) 30 mg DAILY PO Last administered on 10/28/18 08:22; Admin Dose 30 MG; Start 10/10/18 at 09:00 Epoetin Arpan (Epogen (Esrd)) 10,000 units TuSa@1300 SC Last administered on 10/25/18 13:00; Admin Dose 10,000 UNITS; Start 10/11/18 at 13:00 Gabapentin (Neurontin Liquid) 400 mg Q8 GTB Last administered on 10/28/18 14:15; Admin Dose 400 MG; Start 10/09/18 at 15:30 Hydralazine HCl (Apresoline) 10 mg Q4H PRN IV ELEVATED BLOOD PRESSURE; Start 10/09/18 at 14:00 Hydroxychloroquine Sulfate (Plaquenil) 200 mg BID PO Last administered on 10/28/18 08:21; Admin Dose 200 MG; Start 10/09/18 at 21:00 Diagnostic Test (Pha) (Accu-Chek) 1 ea 02 XX Last administered on 10/25/18 01:46; Admin Dose 1 EA; Start 10/10/18 at 02:00 Insulin Aspart (Novolog Insulin Pen) NOVOLOG *CUSTOM* ALGORITHM Q6H SC Last administered on 10/28/18 08:29; Admin Dose 1 UNIT; Start 10/09/18 at 14:00 Lactobacillus Acidophilus (Florajen3 Capsule) 1 each BID GTB Last administered on 10/28/18 08:21; Admin Dose 1 EACH; Start 10/09/18 at 21:00 Lansoprazole (Prevacid) 30 mg BID@06,18 GTB Last administered on 10/28/18 05:08; Admin Dose 30 MG; Start 10/09/18 at 18:00 Levetiracetam (Keppra Liquid) 500 mg BID GTB Last administered on 10/28/18 08:20; Admin Dose 500 MG; Start 10/09/18 at 21:00 Magnesium Oxide (Mag-Ox 400) 400 mg BID GTB Last administered on 10/28/18 08:22; Admin Dose 400 MG; Start 10/09/18 at 21:00 Metoclopramide HCl (Reglan) 10 mg TID IV Last administered on 10/28/18 12:26; Admin Dose 10 MG; Start 10/09/18 at 21:00 Miconazole Nitrate (Miconazole 2% Cr) 1 applic BID TOP Last administered on 10/28/18 08:24; Admin Dose 1 APPLIC; Start 10/09/18 at 21:00 Miconazole Nitrate (Miconazole 2% Cr) 1 applic Q12 PRN TOP rash; Start 10/09/18 at 14:00 Ondansetron HCl (Zofran Inj) 4 mg Q4H PRN IV NAUSEA AND/OR VOMITING Last administered on 10/19/18 16:37; Admin Dose 4 MG; Start 10/09/18 at 14:00 Polyethylene Glycol (Miralax) 17 gm DAILY PRN GTB CONSTIPATION; Start 10/09/18 at 14:00 Senna (Senokot) 2 tab Q8 PRN PO CONSTIPATION; Start 10/09/18 at 14:00 Trimethoprim/ Sulfamethoxazole (Bactrim Susp) 40 ml DAILY GTB Last administered on 10/28/18at 08:21; Admin Dose 40 ML; Start 10/10/18 at 09:00 Zolpidem Tartrate (Ambien) 5 mg HS PRN PO INSOMNIA Last administered on 10/21/18at 02:34; Admin Dose 5 MG; Start 10/09/18 at 14:00 Miscellaneous Information 1 ea NOTE XX ; Start 10/09/18 at 15:00 Glucose (Glutose) 15 gm Q15M PRN PO DECREASED GLUCOSE; Start 10/09/18 at 15:00 Glucose (Glutose) 22.5 gm Q15M PRN PO DECREASED GLUCOSE; Start 10/09/18 at 15:00 Dextrose (D50w Syringe) 25 ml Q15M PRN IV DECREASED GLUCOSE; Start 10/09/18 at 15:00 Dextrose (D50w Syringe) 50 ml Q15M PRN IV DECREASED GLUCOSE; Start 10/09/18 at 15:00 Glucagon (Glucagen) 1 mg Q15M PRN IM DECREASED GLUCOSE; Start 10/09/18 at 15:00 Glucose (Glutose) 15 gm Q15M PRN BUCCAL DECREASED GLUCOSE; Start 10/09/18 at 15:00 Sodium Chloride 500 ml @ 500 mls/hr Q1H PRN IV BLOOD PRESSURE SUPPORT Last administered on 10/10/18at 07:59; Admin Dose 500 MLS/HR; Start 10/09/18 at 19:30 Albuterol (Ventolin Hfa) 4 puff Q6H RESP THERAPY INH Last administered on 10/28/18 09:14; Admin Dose 4 PUFF; Start 10/10/18 at 02:00 Ipratropium [place] (Atrovent Hfa) 4 puff Q6H RESP THERAPY INH Last administered on 10/28/18 09:14; Admin Dose 4 PUFF; Start 10/10/18 at 02:00 Lorazepam (Ativan) 1 mg Q4H PRN GTB AGITATION/ANXIETY Last administered on 10/19/18at 17:35; Admin Dose 1 MG; Start 10/14/18 at 13:00 Lisinopril (Zestril) 2.5 mg DAILY PO Last administered on 10/26/18 09:41; Admin Dose 2.5 MG; Start 10/15/18 at 09:00 Linagliptin (Tradjenta) 5 mg DAILY PO Last administered on 10/28/18 08:22; Admin Dose 5 MG; Start 10/16/18 at 10:30 Fentanyl (Duragesic 50 Mcg/Hr Patch) 1 patch Q72H TRANSDERM Last administered on 10/27/18 02:19; Admin Dose 1 PATCH; Start 10/17/18 at 20:30 Lorazepam (Ativan) 2 mg Q6H GTB Last administered on 10/28/18 14:15; Admin Dose 2 MG; Start 10/20/18 at 15:00 Quetiapine Fumarate (Seroquel) 100 mg BID GTB Last administered on 10/28/18 08:23; Admin Dose 100 MG; Start 10/21/18 at 21:00 Hydromorphone HCl (Dilaudid) 6 mg Q4H PRN PO MODERATE PAIN LEVEL 7-10 Last administered on 10/28/18 12:26; Admin Dose 6 MG; Start 10/21/18 at 22:00 Calcium Carbonate (Ca Carbonate) 1,250 mg QID GTB Last administered on 10/28/18 12:26; Admin Dose 1,250 MG; Start 10/24/18 at 13:00 Carvedilol (Coreg) 6.25 mg BID PO Last administered on 10/27/18 20:21; Admin Dose 6.25 MG; Start 10/27/18 at 21:00 Methylprednisolone Sodium Succinate (Solu-Medrol) 40 mg DAILY IV Last administered on 10/28/18 08:21; Admin Dose 40 MG; Start 10/28/18 at 09:00; Stop 10/30/18 at 09:01 Calcitriol (Rocaltrol) 1 mcg BID PO Last administered on 10/28/18 11:00; Admin Dose 1 MCG; Start 10/28/18 at 09:00 Sodium Chloride 1,000 ml @ 75 mls/hr [id number] IV Last administered on 10/28/18 09:44; Admin Dose 75 MLS/HR; Start 10/28/18 at 10:00 Metoprolol Tartrate (Lopressor) 5 mg Q4H PRN IV HR>110 Hold SBP<100; Start 10/28/18 at 12:30 STEVE MOSCOSO NP Oct 28, 2018 15:21
--- NOTE | 2018-10-28 16:39 | CONS ---
Assessment/Plan Assessment/Plan Assessment/Plan (Daily) Voluminous medical problems outpatient has been in the intensive care unit and prior to his utilization here as noted in the history of present illness. Family members are on their way to the hospital now to have a conference follow- up full palliative care note will be done at after that meeting. Consultation Date/Type/Reason Admit Date/Time Oct 09, 2018 at 12:16 Date/Time of Note DATE: 10/28/18 TIME: 16:36 Hx of Present Illness I see this patient in palliative care consultation was a 53-year-old gentleman who is in the intensive care unit at [facility]. Patient was admitted on October 09 who is a resident of [facility] after prolonged stay there developed worsening hypoxia transferred to the ICU. Patient has multiple consultants involved with his healthcare but essentially has not significantly improved. Patient has PEG trach is fully awake is able to answer questions and make his decisions for ongoing level of health care. During the intensive care unit he is developed acute kidney injury is tachycardic, cardiomyopathy with an EF of 35-40% past medical history of rheumatoid arthritis pain management syndrome anemia of chronic disease, hypertension functional quadriplegia secondary to what is in the chart documented severe cervical spine cord stenosis with cord compression at C3-C5 status post laminectomy history of febrile myalgia rheumatica and history of VATS procedure on 08/11/2018. Essentially patient is not improving significantly well and is still on 70% FiO2 with 90% sats. He remains critically O I am asked to speak to family members and patient especially about ongoing level of care. Patient was admitted to [facility] ICU on October 28, 2018 Subjective hx not possible: pt non-verbal Past Medical History Medical History: diabetes, hypertension, renal disease, other (COPD, RA, spinal stenosis, neuropathy, cervical myelopathy with cervical radiculopathy, chronic pain syndrome, tracheobronchitis, fibromyalgia, MAC infection, anemia, chronic steroid therapy) Medications Current Medications Acetaminophen (Tylenol Liquid) 650 mg Q4H PRN GTB MILD PAIN(1-3)OR ELEVATED TEMP Last administered on 10/16/18at 07:52; Admin Dose 650 MG; Start 10/09/18 at 14:00 Al Hydrox/Mg Hydrox/Simethicone (Mag-Al Plus) 15 ml Q6H PRN PO GASTROINTESTINAL UPSET Last administered on 10/17/18 13:18; Admin Dose 15 ML; Start 10/09/18 at 14:00 Eye Lubricant (Artificial Tears Oph) 1 drop Q6H PRN BOTH EYES DRY EYES; Start 10/09/18 at 14:00 Bisacodyl (Dulcolax Supp) 10 mg DAILY PRN [place] CONSTIPATION; Start 10/09/18 at 14:00 Clonidine (Catapres) 0.1 mg DAILY PRN GTB ELEVATED BLOOD PRESSURE; Start 10/09/18 at 14:00 Diltiazem HCl (Cardizem Iv) 5 mg Q4 PRN IV ELEVATED HEART RATE Last administered on 10/18/18 01:09; Admin Dose 5 MG; Start 10/09/18 at 14:00 Diphenhydramine HCl (Benadryl Liquid Cup) 25 mg Q6 PRN GTB ITCHING Last administered on 10/22/18 20:25; Admin Dose 25 MG; Start 10/09/18 at 14:00 Duloxetine HCl (Cymbalta) 30 mg DAILY PO Last administered on 10/28/18 08:22; Admin Dose 30 MG; Start 10/10/18 at 09:00 Epoetin Arpan (Epogen (Esrd)) 10,000 units TuSa@1300 SC Last administered on 10/25/18 13:00; Admin Dose 10,000 UNITS; Start 10/11/18 at 13:00 Gabapentin (Neurontin Liquid) 400 mg Q8 GTB Last administered on 10/28/18 14:15; Admin Dose 400 MG; Start 10/09/18 at 15:30 Hydralazine HCl (Apresoline) 10 mg Q4H PRN IV ELEVATED BLOOD PRESSURE; Start 10/09/18 at 14:00 Hydroxychloroquine Sulfate (Plaquenil) 200 mg BID PO Last administered on 10/28/18 08:21; Admin Dose 200 MG; Start 10/09/18 at 21:00 Diagnostic Test (Pha) (Accu-Chek) 1 ea 02 XX Last administered on 10/25/18 01:46; Admin Dose 1 EA; Start 10/10/18 at 02:00 Insulin Aspart (Novolog Insulin Pen) NOVOLOG *CUSTOM* ALGORITHM Q6H SC Last administered on 10/28/18 08:29; Admin Dose 1 UNIT; Start 10/09/18 at 14:00 Lactobacillus Acidophilus (Florajen3 Capsule) 1 each BID GTB Last administered on 10/28/18 08:21; Admin Dose 1 EACH; Start 10/09/18 at 21:00 Lansoprazole (Prevacid) 30 mg BID@,18 GTB Last administered on 10/28/18 05:08; Admin Dose 30 MG; Start 10/09/18 at 18:00 Levetiracetam (Keppra Liquid) 500 mg BID GTB Last administered on 10/28/18 08:20; Admin Dose 500 MG; Start 10/09/18 at 21:00 Magnesium Oxide (Mag-Ox 400) 400 mg BID GTB Last administered on 10/28/18 08:22; Admin Dose 400 MG; Start 10/09/18 at 21:00 Metoclopramide HCl (Reglan) 10 mg TID IV Last administered on 10/28/18 12:26; Admin Dose 10 MG; Start 10/09/18 at 21:00 Miconazole Nitrate (Miconazole 2% Cr) 1 applic BID TOP Last administered on 10/28/18 08:24; Admin Dose 1 APPLIC; Start 10/09/18 at 21:00 Miconazole Nitrate (Miconazole 2% Cr) 1 applic Q12 PRN TOP rash; Start 10/09/18 at 14:00 Ondansetron HCl (Zofran Inj) 4 mg Q4H PRN IV NAUSEA AND/OR VOMITING Last administered on 10/19/18 16:37; Admin Dose 4 MG; Start 10/09/18 at 14:00 Polyethylene Glycol (Miralax) 17 gm DAILY PRN GTB CONSTIPATION; Start 10/09/18 at 14:00 Senna (Senokot) 2 tab Q8 PRN PO CONSTIPATION; Start 10/09/18 at 14:00 Trimethoprim/ Sulfamethoxazole (Bactrim Susp) 40 ml DAILY GTB Last administered on 10/28/18 08:21; Admin Dose 40 ML; Start 10/10/18 at 09:00 Zolpidem Tartrate (Ambien) 5 mg HS PRN PO INSOMNIA Last administered on 10/21/18 02:34; Admin Dose 5 MG; Start 10/09/18 at 14:00 Miscellaneous Information 1 ea NOTE XX ; Start 10/09/18 at 15:00 Glucose (Glutose) 15 gm Q15M PRN PO DECREASED GLUCOSE; Start 10/09/18 at 15:00 Glucose (Glutose) 22.5 gm Q15M PRN PO DECREASED GLUCOSE; Start 10/09/18 at 15:00 Dextrose (D50w Syringe) 25 ml Q15M PRN IV DECREASED GLUCOSE; Start 10/09/18 at 15:00 Dextrose (D50w Syringe) 50 ml Q15M PRN IV DECREASED GLUCOSE; Start 10/09/18 at 15:00 Glucagon (Glucagen) 1 mg Q15M PRN IM DECREASED GLUCOSE; Start 10/09/18 at 15:00 Glucose (Glutose) 15 gm Q15M PRN BUCCAL DECREASED GLUCOSE; Start 10/09/18 at 15:00 Sodium Chloride 500 ml @ 500 mls/hr Q1H PRN IV BLOOD PRESSURE SUPPORT Last administered on 10/10/18at 07:59; Admin Dose 500 MLS/HR; Start 10/09/18 at 19:30 Albuterol (Ventolin Hfa) 4 puff Q6H RESP THERAPY INH Last administered on 10/28/18at 15:50; Admin Dose 4 PUFF; Start 10/10/18 at 02:00 Ipratropium [place] (Atrovent Hfa) 4 puff Q6H RESP THERAPY INH Last administered on 10/28/18at 15:50; Admin Dose 4 PUFF; Start 10/10/18 at 02:00 Lorazepam (Ativan) 1 mg Q4H PRN GTB AGITATION/ANXIETY Last administered on 10/19/18at 17:35; Admin Dose 1 MG; Start 10/14/18 at 13:00 Lisinopril (Zestril) 2.5 mg DAILY PO Last administered on 10/26/18 09:41; Admin Dose 2.5 MG; Start 10/15/18 at 09:00 Linagliptin (Tradjenta) 5 mg DAILY PO Last administered on 10/28/18at 08:22; Admin Dose 5 MG; Start 10/16/18 at 10:30 Fentanyl (Duragesic 50 Mcg/Hr Patch) 1 patch Q72H TRANSDERM Last administered on 10/27/18at 02:19; Admin Dose 1 PATCH; Start 10/17/18 at 20:30 Lorazepam (Ativan) 2 mg Q6H GTB Last administered on 10/28/18 14:15; Admin Dose 2 MG; Start 10/20/18 at 15:00 Quetiapine Fumarate (Seroquel) 100 mg BID GTB Last administered on 10/28/18 08:23; Admin Dose 100 MG; Start 10/21/18 at 21:00 Hydromorphone HCl (Dilaudid) 6 mg Q4H PRN PO MODERATE PAIN LEVEL 7-10 Last administered on 10/28/18 12:26; Admin Dose 6 MG; Start 10/21/18 at 22:00 Calcium Carbonate (Ca Carbonate) 1,250 mg QID GTB Last administered on 10/28/18 12:26; Admin Dose 1,250 MG; Start 10/24/18 at 13:00 Carvedilol (Coreg) 6.25 mg BID PO Last administered on 10/27/18 20:21; Admin Dose 6.25 MG; Start 10/27/18 at 21:00 Methylprednisolone Sodium Succinate (Solu-Medrol) 40 mg DAILY IV Last administered on 10/28/18 08:21; Admin Dose 40 MG; Start 10/28/18 at 09:00; Stop 10/30/18 at 09:01 Calcitriol (Rocaltrol) 1 mcg BID PO Last administered on 10/28/18 11:00; Admin Dose 1 MCG; Start 10/28/18 at 09:00 Sodium Chloride 1,000 ml @ 75 mls/hr [id number] IV Last administered on 10/28/18 09:44; Admin Dose 75 MLS/HR; Start 10/28/18 at 10:00 Metoprolol Tartrate (Lopressor) 5 mg Q4H PRN IV HR>110 Hold SBP<100; Start 10/28/18 at 12:30 Allergies: Coded Allergies: No Known Allergy (Unverified , 10/12/18) Past Surgical History Past Surgical Hx: other Social History Alcohol Use: none Smoking Status: Never smoker Drug Use: none Exam/Review of Systems Exam Vitals Vital Signs Date Temp Pulse Resp B/P (MAP) Pulse Ox O2 O2 Flow FiO2 Time Delivery Rate 10/28/18 98.6 119 24 122/88 90 Mechanical 16:00 (99) Ventilator 10/28/18 70 15:20 Intake and Output 10/27/18 10/27/18 10/28/18 1515:00 23:00 07:00 IntakeIntake Total 500 ml 320 ml 420 ml OutputOutput Total 500 ml 95 ml 250 ml BalanceBalance 0 ml 225 ml 170 ml Constitutional: alert, oriented, distress, frail Head: normocephalic, atraumatic; No lacerations, No hematomas, No other Eyes: nl conjunctiva, EOMI, nl lids, nl sclera, PERRL; No icteric, No fundi, disc, No other Respiratory: congested cough, crackles/rales, diminished breath sounds, intercostal retraction, labored breathing Cardiovascular: regular rate and rhythm, nl pulses Neurological: TEAM PHYSICIAN II-XII intact, nl mental status, other (Patient is trached) Results Result Diagram: 10/28/18 0452 10/28/18 0452 Results 24hrs Laboratory Tests Test 10/27/18 20:28 10/28/18 02:13 10/28/18 04:52 10/28/18 08:00 Bedside Glucose 174 177 155 White Blood 25.5 H Count Red Blood Count 3.01 L Hemoglobin 8.8 L Hematocrit 28.6 L Mean Corpuscular 95.0 Volume Mean Corpuscular 29.2 Hemoglobin Mean Corpuscular 30.8 L Hemoglobin Dawn nt Red Cell 18.2 H Distribution Width Platelet Count 309 Mean Platelet 12.0 H Volume Immature 4.300 H Granulocytes % Neutrophils % 81.7 H Lymphocytes % 3.0 L Monocytes % 10.5 Eosinophils % 0.0 Basophils % 0.5 Nucleated Red 0.0 Blood Cells % Immature 1.100 H Granulocytes # Neutrophils # 20.8 H Lymphocytes # 0.8 Monocytes # 2.7 H Eosinophils # 0.0 Basophils # 0.1 Nucleated Red 0.0 Blood Cells # Sodium Level 133 L Potassium Level 4.1 Chloride Level 95 L Carbon Dioxide 34 H Level Anion Gap 4 L Blood Urea 33 H Nitrogen Creatinine 0.36 L Est Glomerular > 60 Filtrat Rate mL/min Glucose Level 125 Calcium Level 7.6 L Phosphorus Level 3.6 Magnesium Level 1.7 Test 10/28/18 09:14 10/28/18 10:00 10/28/18 14:14 Lab Scanned REFERENCE LAB Report Urine Color YELLOW Urine Clarity SLIGHTLY CLOUDY A Urine pH 6.0 Urine Specific 1.024 [place] Urine Ketones NEGATIVE Urine Nitrite NEGATIVE Urine Bilirubin NEGATIVE Urine NEGATIVE Urobilinogen Urine Leukocyte NEGATIVE Esterase Urine 13 H Microscopic RBC Urine 3 Microscopic WBC Urine Squamous FEW Epithelial Cells Urine Bacteria MODERATE Urine Mucus MODERATE Urine Yeast MODERATE A (Budding) Urine Hemoglobin NEGATIVE Urine Osmolality 708 Urine Random 32.64 Creatinine Urine Random 47 Sodium Urine Glucose NEGATIVE Urine Total 32.0 H Protein Bedside Glucose 143 Medications Medication Current Medications Acetaminophen (Tylenol Liquid) 650 mg Q4H PRN GTB MILD PAIN(1-3)OR ELEVATED TEMP Last administered on 10/16/18 07:52; Admin Dose 650 MG; Start 10/09/18 at 14:00 Al Hydrox/Mg Hydrox/Simethicone (Mag-Al Plus) 15 ml Q6H PRN PO GASTROINTESTINAL UPSET Last administered on 10/17/18 13:18; Admin Dose 15 ML; Start 10/09/18 at 14:00 Eye Lubricant (Artificial Tears Oph) 1 drop Q6H PRN BOTH EYES DRY EYES; Start 10/09/18 at 14:00 Bisacodyl (Dulcolax Supp) 10 mg DAILY PRN [place] CONSTIPATION; Start 10/09/18 at 14:00 Clonidine (Catapres) 0.1 mg DAILY PRN GTB ELEVATED BLOOD PRESSURE; Start 10/09/18 at 14:00 Diltiazem HCl (Cardizem Iv) 5 mg Q4 PRN IV ELEVATED HEART RATE Last admin istered on 10/18/18 01:09; Admin Dose 5 MG; Start 10/09/18 at 14:00 Diphenhydramine HCl (Benadryl Liquid Cup) 25 mg Q6 PRN GTB ITCHING Last administered on 10/22/18 20:25; Admin Dose 25 MG; Start 10/09/18 at 14:00 Duloxetine HCl (Cymbalta) 30 mg DAILY PO Last administered on 10/28/18 08:22; Admin Dose 30 MG; Start 10/10/18 at 09:00 Epoetin Arpan (Epogen (Esrd)) 10,000 units TuSa@1300 SC Last administered on 10/25/18 13:00; Admin Dose 10,000 UNITS; Start 10/11/18 at 13:00 Gabapentin (Neurontin Liquid) 400 mg Q8 GTB Last administered on 10/28/18 14:15; Admin Dose 400 MG; Start 10/09/18 at 15:30 Hydralazine HCl (Apresoline) 10 mg Q4H PRN IV ELEVATED BLOOD PRESSURE; Start 10/09/18 at 14:00 Hydroxychloroquine Sulfate (Plaquenil) 200 mg BID PO Last administered on 10/28/18 08:21; Admin Dose 200 MG; Start 10/09/18 at 21:00 Diagnostic Test (Pha) (Accu-Chek) 1 ea 02 XX Last administered on 10/25/18 01:46; Admin Dose 1 EA; Start 10/10/18 at 02:00 Insulin Aspart (Novolog Insulin Pen) NOVOLOG *CUSTOM* ALGORITHM Q6H SC Last administered on 10/28/18 08:29; Admin Dose 1 UNIT; Start 10/09/18 at 14:00 Lactobacillus Acidophilus (Florajen3 Capsule) 1 each BID GTB Last administered on 10/28/18 08:21; Admin Dose 1 EACH; Start 10/09/18 at 21:00 Lansoprazole (Prevacid) 30 mg BID@06,18 GTB Last administered on 10/28/18 05:08; Admin Dose 30 MG; Start 10/09/18 at 18:00 Levetiracetam (Keppra Liquid) 500 mg BID GTB Last administered on 10/28/18 08:20; Admin Dose 500 MG; Start 10/09/18 at 21:00 Magnesium Oxide (Mag-Ox 400) 400 mg BID GTB Last administered on 10/28/18 08:22; Admin Dose 400 MG; Start 10/09/18 at 21:00 Metoclopramide HCl (Reglan) 10 mg TID IV Last administered on 10/28/18 12:26; Admin Dose 10 MG; Start 10/09/18 at 21:00 Miconazole Nitrate (Miconazole 2% Cr) 1 applic BID TOP Last administered on 10/28/18 08:24; Admin Dose 1 APPLIC; Start 10/09/18 at 21:00 Miconazole Nitrate (Miconazole 2% Cr) 1 applic Q12 PRN TOP rash; Start 10/09/18 at 14:00 Ondansetron HCl (Zofran Inj) 4 mg Q4H PRN IV NAUSEA AND/OR VOMITING Last administered on 3/6/19at 16:37; Admin Dose 4 MG; Start 10/09/18 at 14:00 Polyethylene Glycol (Miralax) 17 gm DAILY PRN GTB CONSTIPATION; Start 10/09/18 at 14:00 Senna (Senokot) 2 tab Q8 PRN PO CONSTIPATION; Start 10/09/18 at 14:00 Trimethoprim/ Sulfamethoxazole (Bactrim Susp) 40 ml DAILY GTB Last administered on 10/28/18at 08:21; Admin Dose 40 ML; Start 10/10/18 at 09:00 Zolpidem Tartrate (Ambien) 5 mg HS PRN PO INSOMNIA Last administered on 10/21/18at 02:34; Admin Dose 5 MG; Start 10/09/18 at 14:00 Miscellaneous Information 1 ea NOTE XX ; Start 10/09/18 at 15:00 Glucose (Glutose) 15 gm Q15M PRN PO DECREASED GLUCOSE; Start 10/09/18 at 15:00 Glucose (Glutose) 22.5 gm Q15M PRN PO DECREASED GLUCOSE; Start 10/09/18 at 15:00 Dextrose (D50w Syringe) 25 ml Q15M PRN IV DECREASED GLUCOSE; Start 10/09/18 at 15:00 Dextrose (D50w Syringe) 50 ml Q15M PRN IV DECREASED GLUCOSE; Start 10/09/18 at 15:00 Glucagon (Glucagen) 1 mg Q15M PRN IM DECREASED GLUCOSE; Start 10/09/18 at 15:00 Glucose (Glutose) 15 gm Q15M PRN BUCCAL DECREASED GLUCOSE; Start 10/09/18 at 15:00 Sodium Chloride 500 ml @ 500 mls/hr Q1H PRN IV BLOOD PRESSURE SUPPORT Last administered on 10/10/18at 07:59; Admin Dose 500 MLS/HR; Start 10/09/18 at 19:30 Albuterol (Ventolin Hfa) 4 puff Q6H RESP THERAPY INH Last administered on 10/28/18at 15:50; Admin Dose 4 PUFF; Start 10/10/18 at 02:00 Ipratropium [place] (Atrovent Hfa) 4 puff Q6H RESP THERAPY INH Last adminis tered on 10/28/18at 15:50; Admin Dose 4 PUFF; Start 10/10/18 at 02:00 Lorazepam (Ativan) 1 mg Q4H PRN GTB AGITATION/ANXIETY Last administered on 10/19/18 17:35; Admin Dose 1 MG; Start 10/14/18 at 13:00 Lisinopril (Zestril) 2.5 mg DAILY PO Last administered on 10/26/18 09:41; Admin Dose 2.5 MG; Start 10/15/18 at 09:00 Linagliptin (Tradjenta) 5 mg DAILY PO Last administered on 10/28/18 08:22; Admin Dose 5 MG; Start 10/16/18 at 10:30 Fentanyl (Duragesic 50 Mcg/Hr Patch) 1 patch Q72H TRANSDERM Last administered on 10/27/18 02:19; Admin Dose 1 PATCH; Start 10/17/18 at 20:30 Lorazepam (Ativan) 2 mg Q6H GTB Last administered on 10/28/18 14:15; Admin Dose 2 MG; Start 10/20/18 at 15:00 Quetiapine Fumarate (Seroquel) 100 mg BID GTB Last administered on 10/28/18 08:23; Admin Dose 100 MG; Start 10/21/18 at 21:00 Hydromorphone HCl (Dilaudid) 6 mg Q4H PRN PO MODERATE PAIN LEVEL 7-10 Last administered on 10/28/18 12:26; Admin Dose 6 MG; Start 10/21/18 at 22:00 Calcium Carbonate (Ca Carbonate) 1,250 mg QID GTB Last administered on 10/28/18 12:26; Admin Dose 1,250 MG; Start 10/24/18 at 13:00 Carvedilol (Coreg) 6.25 mg BID PO Last administered on 10/27/18 20:21; Admin Dose 6.25 MG; Start 10/27/18 at 21:00 Methylprednisolone Sodium Succinate (Solu-Medrol) 40 mg DAILY IV Last administered on 10/28/18 08:21; Admin Dose 40 MG; Start 10/28/18 at 09:00; Stop 10/30/18 at 09:01 Calcitriol (Rocaltrol) 1 mcg BID PO Last administered on 10/28/18 11:00; Admin Dose 1 MCG; Start 10/28/18 at 09:00 Sodium Chloride 1,000 ml @ 75 mls/hr [id number] IV Last administered on 10/28/18at 09:44; Admin Dose 75 MLS/HR; Start 10/28/18 at 10:00 Metoprolol Tartrate (Lopressor) 5 mg Q4H PRN IV HR>110 Hold SBP<100; Start 10/28/18 at 12:30 RENATO GAMBOA Oct 28, 2018 16:39
--- NOTE | 2018-10-28 17:40 | CONS ---
Assessment/Plan Assessment/Plan Assessment/Plan (Daily) The patient's and son there are 2 other siblings who live in one in [place] the second 1 lives in [facility]. Daughter from [place] is on her way down and daughter lives in [facility] will be joining family members also fully early next week. Per patient's request we discussed his options #1 being continue with full care including cardiopulmonary resuscitation option #2 full care but if he deteriorates no cardiopulmonary resuscitation no DC cardioversion option 3 comfort measures. But that conversation never came to a final conclusion. Once again I did not push them to give us an answer today nor in the next 2-3 days. But I did tell family members he can decompensated any time if that happens he would require aggressive intervention including ACLS. There are very nice family I believe they will contact us and set up another appointment Wednesday or Wednesday. Consultation Date/Type/Reason Admit Date/Time Oct 09, 2018 at 12:16 Initial Consult Date 10/12/18 Requesting Provider: NOLA VIDAL MD Date/Time of Note DATE: 10/28/18 TIME: 17:40 Exam/Review of Systems Exam Vitals Vital Signs Date Temp Pulse Resp B/P (MAP) Pulse Ox O2 O2 Flow FiO2 Time Delivery Rate 10/28/18 120 16:00 10/28/18 98.6 24 122/88 90 Mechanical 16:00 (99) Ventilator 10/28/18 70 15:20 Intake and Output 10/27/18 10/27/18 10/28/18 1515:00 23:00 07:00 IntakeIntake Total 500 ml 320 ml 420 ml OutputOutput Total 500 ml 95 ml 250 ml BalanceBalance 0 ml 225 ml 170 ml Results Result Diagram: 10/28/18 0452 10/28/18 0452 Results 24hrs Laboratory Tests Test 10/27/18 20:28 10/28/18 02:13 10/28/18 04:52 10/28/18 08:00 Bedside Glucose 174 177 155 White Blood 25.5 H Count Red Blood Count 3.01 L Hemoglobin 8.8 L Hematocrit 28.6 L Mean Corpuscular 95.0 Volume Mean Corpuscular 29.2 Hemoglobin Mean Corpuscular 30.8 L Hemoglobin Dawn nt Red Cell 18.2 H Distribution Width Platelet Count 309 Mean Platelet 12.0 H Volume Immature 4.300 H Granulocytes % Neutrophils % 81.7 H Lymphocytes % 3.0 L Monocytes % 10.5 Eosinophils % 0.0 Basophils % 0.5 Nucleated Red 0.0 Blood Cells % Immature 1.100 H Granulocytes # Neutrophils # 20.8 H Lymphocytes # 0.8 Monocytes # 2.7 H Eosinophils # 0.0 Basophils # 0.1 Nucleated Red 0.0 Blood Cells # Sodium Level 133 L Potassium Level 4.1 Chloride Level 95 L Carbon Dioxide 34 H Level Anion Gap 4 L Blood Urea 33 H Nitrogen Creatinine 0.36 L Est Glomerular > 60 Filtrat Rate mL/min Glucose Level 125 Calcium Level 7.6 L Phosphorus Level 3.6 Magnesium Level 1.7 Test 10/28/18 09:14 10/28/18 10:00 10/28/18 14:14 Lab Scanned REFERENCE LAB Report Urine Color YELLOW Urine Clarity SLIGHTLY CLOUDY A Urine pH 6.0 Urine Specific 1.024 [place] Urine Ketones NEGATIVE Urine Nitrite NEGATIVE Urine Bilirubin NEGATIVE Urine NEGATIVE Urobilinogen Urine Leukocyte NEGATIVE Esterase Urine 13 H Microscopic RBC Urine 3 Microscopic WBC Urine Squamous FEW Epithelial Cells Urine Bacteria MODERATE Urine Mucus MODERATE Urine Yeast MODERATE A (Budding) Urine Hemoglobin NEGATIVE Urine Osmolality 708 Urine Random 32.64 Creatinine Urine Random 47 Sodium Urine Glucose NEGATIVE Urine Total 32.0 H Protein Bedside Glucose 143 Medications Medication Current Medications Acetaminophen (Tylenol Liquid) 650 mg Q4H PRN GTB MILD PAIN(1-3)OR ELEVATED TEMP Last administered on 10/16/18at 07:52; Admin Dose 650 MG; Start 10/09/18 at 14:00 Al Hydrox/Mg Hydrox/Simethicone (Mag-Al Plus) 15 ml Q6H PRN PO GASTROINTESTINAL UPSET Last administered on 10/17/18at 13:18; Admin Dose 15 ML; Start 10/09/18 at 14:00 Eye Lubricant (Artificial Tears Oph) 1 drop Q6H PRN BOTH EYES DRY EYES; Start 10/09/18 at 14:00 Bisacodyl (Dulcolax Supp) [address] CONSTIPATION; Start 10/09/18 at 14:00 Clonidine (Catapres) 0.1 mg DAILY PRN GTB ELEVATED BLOOD PRESSURE; Start 10/09/18 at 14:00 Diltiazem HCl (Cardizem Iv) 5 mg Q4 PRN IV ELEVATED HEART RATE Last administered on 10/18/18at 01:09; Admin Dose 5 MG; Start 10/09/18 at 14:00 Diphenhydramine HCl (Benadryl Liquid Cup) 25 mg Q6 PRN GTB ITCHING Last administered on 10/22/18 20:25; Admin Dose 25 MG; Start 10/09/18 at 14:00 Duloxetine HCl (Cymbalta) 30 mg DAILY PO Last administered on 10/28/18 08:22; Admin Dose 30 MG; Start 10/10/18 at 09:00 Epoetin Arpan (Epogen (Esrd)) 10,000 units TuSa@1300 SC Last administered on 10/25/18 13:00; Admin Dose 10,000 UNITS; Start 10/11/18 at 13:00 Gabapentin (Neurontin Liquid) 400 mg Q8 GTB Last administered on 10/28/18 14:15; Admin Dose 400 MG; Start 10/09/18 at 15:30 Hydralazine HCl (Apresoline) 10 mg Q4H PRN IV ELEVATED BLOOD PRESSURE; Start 10/09/18 at 14:00 Hydroxychloroquine Sulfate (Plaquenil) 200 mg BID PO Last administered on 10/28/18 08:21; Admin Dose 200 MG; Start 10/09/18 at 21:00 Diagnostic Test (Pha) (Accu-Chek) 1 ea 02 XX Last administered on 10/25/18 01:46; Admin Dose 1 EA; Start 10/10/18 at 02:00 Insulin Aspart (Novolog Insulin Pen) NOVOLOG *CUSTOM* ALGORITHM Q6H SC Last administered on 10/28/18 08:29; Admin Dose 1 UNIT; Start 10/09/18 at 14:00 Lactobacillus Acidophilus (Florajen3 Capsule) 1 each BID GTB Last administered on 10/28/18 08:21; Admin Dose 1 EACH; Start 10/09/18 at 21:00 Lansoprazole (Prevacid) 30 mg BID@06,18 GTB Last administered on 10/28/18 17:05; Admin Dose 30 MG; Start 10/09/18 at 18:00 Levetiracetam (Keppra Liquid) 500 mg BID GTB Last administered on 10/28/18 08:20; Admin Dose 500 MG; Start 10/09/18 at 21:00 Magnesium Oxide (Mag-Ox 400) 400 mg BID GTB Last administered on 10/28/18at 08:22; Admin Dose 400 MG; Start 10/09/18 at 21:00 Metoclopramide HCl (Reglan) 10 mg TID IV Last administered on 10/28/18at 12:26; Admin Dose 10 MG; Start 10/09/18 at 21:00 Miconazole Nitrate (Miconazole 2% Cr) 1 applic BID TOP Last administered on 10/28/18at 08:24; Admin Dose 1 APPLIC; Start 10/09/18 at 21:00 Miconazole Nitrate (Miconazole 2% Cr) 1 applic Q12 PRN TOP rash; Start 10/09/18 at 14:00 Ondansetron HCl (Zofran Inj) 4 mg Q4H PRN IV NAUSEA AND/OR VOMITING Last administered on 10/19/18at 16:37; Admin Dose 4 MG; Start 10/09/18 at 14:00 Polyethylene Glycol (Miralax) 17 gm DAILY PRN GTB CONSTIPATION; Start 10/09/18 at 14:00 Senna (Senokot) 2 tab Q8 PRN PO CONSTIPATION; Start 10/09/18 at 14:00 Trimethoprim/ Sulfamethoxazole (Bactrim Susp) 40 ml DAILY GTB Last administered on 10/28/18at 08:21; Admin Dose 40 ML; Start 10/10/18 at 09:00 Zolpidem Tartrate (Ambien) 5 mg HS PRN PO INSOMNIA Last administered on 10/21/18at 02:34; Admin Dose 5 MG; Start 10/09/18 at 14:00 Miscellaneous Information 1 ea NOTE XX ; Start 10/09/18 at 15:00 Glucose (Glutose) 15 gm Q15M PRN PO DECREASED GLUCOSE; Start 10/09/18 at 15:00 Glucose (Glutose) 22.5 gm Q15M PRN PO DECREASED GLUCOSE; Start 10/09/18 at 15:00 Dextrose (D50w Syringe) 25 ml Q15M PRN IV DECREASED GLUCOSE; Start 10/09/18 at 15:00 Dextrose (D50w Syringe) 50 ml Q15M PRN IV DECREASED GLUCOSE; Start 10/09/18 at 15:00 Glucagon (Glucagen) 1 mg Q15M PRN IM DECREASED GLUCOSE; Start 10/09/18 at 15:00 Glucose (Glutose) 15 gm Q15M PRN BUCCAL DECREASED GLUCOSE; Start 10/09/18 at 15:00 Sodium Chloride 500 ml @ 500 mls/hr Q1H PRN IV BLOOD PRESSURE SUPPORT Last administered on 10/10/18 07:59; Admin Dose 500 MLS/HR; Start 10/09/18 at 19:30 Albuterol (Ventolin Hfa) 4 puff Q6H RESP THERAPY INH Last administered on 10/28/18 15:50; Admin Dose 4 PUFF; Start 10/10/18 at 02:00 Ipratropium [place] (Atrovent Hfa) 4 puff Q6H RESP THERAPY INH Last ad ministered on 10/28/18 15:50; Admin Dose 4 PUFF; Start 10/10/18 at 02:00 Lorazepam (Ativan) 1 mg Q4H PRN GTB AGITATION/ANXIETY Last administered on 10/19/18 17:35; Admin Dose 1 MG; Start 10/14/18 at 13:00 Lisinopril (Zestril) 2.5 mg DAILY PO Last administered on 10/26/18 09:41; Admin Dose 2.5 MG; Start 10/15/18 at 09:00 Linagliptin (Tradjenta) 5 mg DAILY PO Last administered on 10/28/18 08:22; Admin Dose 5 MG; Start 10/16/18 at 10:30 Fentanyl (Duragesic 50 Mcg/Hr Patch) 1 patch Q72H TRANSDERM Last administered on 10/27/18 02:19; Admin Dose 1 PATCH; Start 10/17/18 at 20:30 Lorazepam (Ativan) 2 mg Q6H GTB Last administered on 10/28/18 14:15; Admin Dose 2 MG; Start 10/20/18 at 15:00 Quetiapine Fumarate (Seroquel) 100 mg BID GTB Last administered on 10/28/18 08:23; Admin Dose 100 MG; Start 10/21/18 at 21:00 Hydromorphone HCl (Dilaudid) 6 mg Q4H PRN PO MODERATE PAIN LEVEL 7-10 Last adm inistered on 10/28/18 16:34; Admin Dose 6 MG; Start 10/21/18 at 22:00 Calcium Carbonate (Ca Carbonate) 1,250 mg QID GTB Last administered on 10/28/18 17:05; Admin Dose 1,250 MG; Start 10/24/18 at 13:00 Carvedilol (Coreg) 6.25 mg BID PO Last administered on 10/27/18at 20:21; Admin Dose 6.25 MG; Start 10/27/18 at 21:00 Methylprednisolone Sodium Succinate (Solu-Medrol) 40 mg DAILY IV Last administ ered on 10/28/18at 08:21; Admin Dose 40 MG; Start 10/28/18 at 09:00; Stop 10/30/18 at 09:01 Calcitriol (Rocaltrol) 1 mcg BID PO Last administered on 10/28/18 11:00; Admin Dose 1 MCG; Start 10/28/18 at 09:00 Sodium Chloride 1,000 ml @ 75 mls/hr [id number] IV Last administered on 10/28/18at 09:44; Admin Dose 75 MLS/HR; Start 10/28/18 at 10:00 Metoprolol Tartrate (Lopressor) 5 mg Q4H PRN IV HR>110 Hold SBP<100; Start 10/28/18 at 12:30 RENATO GAMBOA Oct 28, 2018 17:40
--- NOTE | 2018-10-28 18:10 | CONS ---
Assessment/Plan Assessment/Plan Assessment/Plan (Daily) Interval History- No acute events overnight, tolerating tube feeds well, no residual. Pt was not able to tolerate FiO2 50% yesterday likely due to his anxiety. Diarrhea improved, more so loose stool. Neg AFB sputum x 3. Off airborne precautions. 1. Respiratory failure secondary to pneumonia versus interstitial pneumonitis from rheumatoid arthritis versus mild aspiration. -on Bactrim 2. Severe rheumatoid arthritis. 3. Quadriplegia. 4. Adrenal insufficiency. 5. Gastroparesis. -Reglan, denies nausea 6. Hypothyroidism. 7. Chronic pain syndrome. 8. Hypertension. 9. Diarrhea -VRE in stool which is likely colonized -FOB neg -likely due to tube feeds 10. Leukocytosis secondary to steroids 11.ARDS 12. Anxiety -on PO ativan Swallow eval: Impression: Oropharyngeal dysphagia associated with reduced oropharyngeal strength/coordination, delayed timing of swallowing and reduced coordination of breath with swallow safety impacting swallow safety. Pt is not safe to initiate p.o intake and is at high risk of aspiration. Recommendation: 1. Initiate dysphagia therapy 3-5x per week for 1-2 weeks 2. Keep NPO+PEG tube feeds for primary means of nutrition/hydration/medication delivery 3. Anticipate need for in-line PMV evaluation one respiratory status improves and is stabilized 4. ongoing assessment and BOT and oropharyngeal strengthening exercises, aswell as pt/family education and counseling 5. Anticipate need for MBSS prior to initiation of p.o intake PLAN: ID recommendations. Patient is on Bactrim Continue present care Nothing by mouth per swallow eval results Continue with tube feeds check residuals q 4 hours Continue Reglan. Aspiration precautions. So far there is no evidence of aspiration. If anytime there is evidence of aspiration will convert G-tube to J-tube Vent support Consultation Date/Type/Reason Admit Date/Time Oct 09, 2018 at 12:16 Initial Consult Date 10/12/18 Requesting Provider: NOLA VIDAL MD Date/Time of Note DATE: 10/28/18 TIME: 18:09 24 HR Interval Summary Free Text/Dictation Patient is very anxious and gets agitated. No abdominal pain no nausea no vomiting. No regurgitation Exam/Review of Systems Exam Vitals Vital Signs Date Temp Pulse Resp B/P (MAP) Pulse Ox O2 O2 Flow FiO2 Time Delivery Rate 10/28/18 120 16:00 10/28/18 98.6 24 122/88 90 Mechanical 16:00 (99) Ventilator 10/28/18 70 15:20 Intake and Output 10/27/18 10/27/18 10/28/18 1515:00 23:00 07:00 IntakeIntake Total 500 ml 320 ml 420 ml OutputOutput Total 500 ml 95 ml 250 ml BalanceBalance 0 ml 225 ml 170 ml Constitutional: alert, oriented Neck: No supple, No non-tender, No jvd, No bruits, No masses, No thyromegaly, No nuchal rigidity, No other Results Result Diagram: 10/28/18 0452 10/28/18 0452 Results 24hrs Laboratory Tests Test 10/27/18 20:28 10/28/18 02:13 10/28/18 04:52 10/28/18 08:00 Bedside Glucose 174 177 155 White Blood 25.5 H Count Red Blood Count 3.01 L Hemoglobin 8.8 L Hematocrit 28.6 L Mean Corpuscular 95.0 Volume Mean Corpuscular 29.2 Hemoglobin Mean Corpuscular 30.8 L Hemoglobin Dawn nt Red Cell 18.2 H Distribution Width Platelet Count 309 Mean Platelet 12.0 H Volume Immature 4.300 H Granulocytes % Neutrophils % 81.7 H Lymphocytes % 3.0 L Monocytes % 10.5 Eosinophils % 0.0 Basophils % 0.5 Nucleated Red 0.0 Blood Cells % Immature 1.100 H Granulocytes # Neutrophils # 20.8 H Lymphocytes # 0.8 Monocytes # 2.7 H Eosinophils # 0.0 Basophils # 0.1 Nucleated Red 0.0 Blood Cells # Sodium Level 133 L Potassium Level 4.1 Chloride Level 95 L Carbon Dioxide 34 H Level Anion Gap 4 L Blood Urea 33 H Nitrogen Creatinine 0.36 L Est Glomerular > 60 Filtrat Rate mL/min Glucose Level 125 Calcium Level 7.6 L Phosphorus Level 3.6 Magnesium Level 1.7 Test 10/28/18 09:14 10/28/18 10:00 10/28/18 14:14 Lab Scanned REFERENCE LAB Report Urine Color YELLOW Urine Clarity SLIGHTLY CLOUDY A Urine pH 6.0 Urine Specific 1.024 [place] Urine Ketones NEGATIVE Urine Nitrite NEGATIVE Urine Bilirubin NEGATIVE Urine NEGATIVE Urobilinogen Urine Leukocyte NEGATIVE Esterase Urine 13 H Microscopic RBC Urine 3 Microscopic WBC Urine Squamous FEW Epithelial Cells Urine Bacteria MODERATE Urine Mucus MODERATE Urine Yeast MODERATE A (Budding) Urine Hemoglobin NEGATIVE Urine Osmolality 708 Urine Random 32.64 Creatinine Urine Random 47 Sodium Urine Glucose NEGATIVE Urine Total 32.0 H Protein Bedside Glucose 143 Medications Medication Current Medications Acetaminophen (Tylenol Liquid) 650 mg Q4H PRN GTB MILD PAIN(1-3)OR ELEVATED TEMP Last administered on 10/16/18 07:52; Admin Dose 650 MG; Start 10/09/18 at 14:00 Al Hydrox/Mg Hydrox/Simethicone (Mag-Al Plus) 15 ml Q6H PRN PO GASTROINTESTINAL UPSET Last administered on 10/17/18 13:18; Admin Dose 15 ML; Start 10/09/18 at 14:00 Eye Lubricant (Artificial Tears Oph) 1 drop Q6H PRN BOTH EYES DRY EYES; Start 10/09/18 at 14:00 Bisacodyl (Dulcolax Supp) 10 mg DAILY PRN [place] CONSTIPATION; Start 10/09/18 at 14:00 Clonidine (Catapres) 0.1 mg DAILY PRN GTB ELEVATED BLOOD PRESSURE; Start 10/09/18 at 14:00 Diltiazem HCl (Cardizem Iv) 5 mg Q4 PRN IV ELEVATED HEART RATE Last administered on 10/18/18 01:09; Admin Dose 5 MG; Start 10/09/18 at 14:00 Diphenhydramine HCl (Benadryl Liquid Cup) 25 mg Q6 PRN GTB ITCHING Last administered on 10/22/18 20:25; Admin Dose 25 MG; Start 10/09/18 at 14:00 Duloxetine HCl (Cymbalta) 30 mg DAILY PO Last administered on 10/28/18 08:22; Admin Dose 30 MG; Start 10/10/18 at 09:00 Epoetin Arpan (Epogen (Esrd)) 10,000 units TuSa@1300 SC Last administered on 10/25/18 13:00; Admin Dose 10,000 UNITS; Start 10/11/18 at 13:00 Gabapentin (Neurontin Liquid) 400 mg Q8 GTB Last administered on 10/28/18 14:15; Admin Dose 400 MG; Start 10/09/18 at 15:30 Hydralazine HCl (Apresoline) 10 mg Q4H PRN IV ELEVATED BLOOD PRESSURE; Start 10/09/18 at 14:00 Hydroxychloroquine Sulfate (Plaquenil) 200 mg BID PO Last administered on 10/28/18 08:21; Admin Dose 200 MG; Start 10/09/18 at 21:00 Diagnostic Test (Pha) (Accu-Chek) 1 ea 02 XX Last administered on 10/25/18 01:46; Admin Dose 1 EA; Start 10/10/18 at 02:00 Insulin Aspart (Novolog Insulin Pen) NOVOLOG *CUSTOM* ALGORITHM Q6H SC Last administered on 10/28/18 08:29; Admin Dose 1 UNIT; Start 10/09/18 at 14:00 Lactobacillus Acidophilus (Florajen3 Capsule) 1 each BID GTB Last administered on 10/28/18 08:21; Admin Dose 1 EACH; Start 10/09/18 at 21:00 Lansoprazole (Prevacid) 30 mg BID@06,18 GTB Last administered on 10/28/18 17:05; Admin Dose 30 MG; Start 10/09/18 at 18:00 Levetiracetam (Keppra Liquid) 500 mg BID GTB Last administered on 10/28/18 08:20; Admin Dose 500 MG; Start 10/09/18 at 21:00 Magnesium Oxide (Mag-Ox 400) 400 mg BID GTB Last administered on 10/28/18 08:22; Admin Dose 400 MG; Start 10/09/18 at 21:00 Metoclopramide HCl (Reglan) 10 mg TID IV Last administered on 10/28/18 12:26; Admin Dose 10 MG; Start 10/09/18 at 21:00 Miconazole Nitrate (Miconazole 2% Cr) 1 applic BID TOP Last administered on 10/28/18 08:24; Admin Dose 1 APPLIC; Start 10/09/18 at 21:00 Miconazole Nitrate (Miconazole 2% Cr) 1 applic Q12 PRN TOP rash; Start 10/09/18 at 14:00 Ondansetron HCl (Zofran Inj) 4 mg Q4H PRN IV NAUSEA AND/OR VOMITING Last administered on 10/19/18 16:37; Admin Dose 4 MG; Start 10/09/18 at 14:00 Polyethylene Glycol (Miralax) 17 gm DAILY PRN GTB CONSTIPATION; Start 10/09/18 at 14:00 Senna (Senokot) 2 tab Q8 PRN PO CONSTIPATION; Start 10/09/18 at 14:00 Trimethoprim/ Sulfamethoxazole (Bactrim Susp) 40 ml DAILY GTB Last administered on 10/28/18 08:21; Admin Dose 40 ML; Start 10/10/18 at 09:00 Zolpidem Tartrate (Ambien) 5 mg HS PRN PO INSOMNIA Last administered on 10/21/18 02:34; Admin Dose 5 MG; Start 10/09/18 at 14:00 Miscellaneous Information 1 ea NOTE XX ; Start 10/09/18 at 15:00 Glucose (Glutose) 15 gm Q15M PRN PO DECREASED GLUCOSE; Start 10/09/18 at 15:00 Glucose (Glutose) 22.5 gm Q15M PRN PO DECREASED GLUCOSE; Start 10/09/18 at 15:00 Dextrose (D50w Syringe) 25 ml Q15M PRN IV DECREASED GLUCOSE; Start 10/09/18 at 15:00 Dextrose (D50w Syringe) 50 ml Q15M PRN IV DECREASED GLUCOSE; Start 10/09/18 at 15:00 Glucagon (Glucagen) 1 mg Q15M PRN IM DECREASED GLUCOSE; Start 10/09/18 at 15:00 Glucose (Glutose) 15 gm Q15M PRN BUCCAL DECREASED GLUCOSE; Start 10/09/18 at 15:00 Sodium Chloride 500 ml @ 500 mls/hr Q1H PRN IV BLOOD PRESSURE SUPPORT Last administered on 10/10/18at 07:59; Admin Dose 500 MLS/HR; Start 10/09/18 at 19:30 Albuterol (Ventolin Hfa) 4 puff Q6H RESP THERAPY INH Last administered on 10/28/18 15:50; Admin Dose 4 PUFF; Start 10/10/18 at 02:00 Ipratropium [place] (Atrovent Hfa) 4 puff Q6H RESP THERAPY INH Last a dministered on 10/28/18 15:50; Admin Dose 4 PUFF; Start 10/10/18 at 02:00 Lorazepam (Ativan) 1 mg Q4H PRN GTB AGITATION/ANXIETY Last administered on 10/19/18 17:35; Admin Dose 1 MG; Start 10/14/18 at 13:00 Lisinopril (Zestril) 2.5 mg DAILY PO Last administered on 10/26/18 09:41; Admin Dose 2.5 MG; Start 10/15/18 at 09:00 Linagliptin (Tradjenta) 5 mg DAILY PO Last administered on 10/28/18 08:22; Admin Dose 5 MG; Start 10/16/18 at 10:30 Fentanyl (Duragesic 50 Mcg/Hr Patch) 1 patch Q72H TRANSDERM Last administered on 10/27/18 02:19; Admin Dose 1 PATCH; Start 10/17/18 at 20:30 Lorazepam (Ativan) 2 mg Q6H GTB Last administered on 10/28/18 14:15; Admin Dose 2 MG; Start 10/20/18 at 15:00 Quetiapine Fumarate (Seroquel) 100 mg BID GTB Last administered on 10/28/18 08:23; Admin Dose 100 MG; Start 10/21/18 at 21:00 Hydromorphone HCl (Dilaudid) 6 mg Q4H PRN PO MODERATE PAIN LEVEL 7-10 Last ad ministered on 10/28/18 16:34; Admin Dose 6 MG; Start 10/21/18 at 22:00 Calcium Carbonate (Ca Carbonate) 1,250 mg QID GTB Last administered on 10/28/18 17:05; Admin Dose 1,250 MG; Start 10/24/18 at 13:00 Carvedilol (Coreg) 6.25 mg BID PO Last administered on 10/27/18 20:21; Admin Dose 6.25 MG; Start 10/27/18 at 21:00 Methylprednisolone Sodium Succinate (Solu-Medrol) 40 mg DAILY IV Last adminis tered on 10/28/18 08:21; Admin Dose 40 MG; Start 10/28/18 at 09:00; Stop 10/30/18 at 09:01 Calcitriol (Rocaltrol) 1 mcg BID PO Last administered on 10/28/18 11:00; Admin Dose 1 MCG; Start 10/28/18 at 09:00 Sodium Chloride 1,000 ml @ 75 mls/hr [id number] IV Last administered on 10/28/18 09:44; Admin Dose 75 MLS/HR; Start 10/28/18 at 10:00 Metoprolol Tartrate (Lopressor) 5 mg Q4H PRN IV HR>110 Hold SBP<100; Start 10/28/18 at 12:30 BHAVIK RUBIO MD Oct 28, 2018 18:10
[2018-10-28 22:53] LABS: PTH INTACT <1 pg/mL (14-64)
[2018-10-29] VITALS (36 sets, daily range): BP systolic 81–116; BP diastolic 55–79; PULSE 96–112; RESP 16–34
[2018-10-29 01:38] LABS: PTH CALCIUM 7.2 mg/dL (8.6-10.3)
[2018-10-29] MEDS: IPRATROPIUM (HFA) 12.9 GM INHALER INH SCH ×4 (01:51→20:01)
[2018-10-29] MEDS: ALBUTEROL HFA 8 GM INHALER INH SCH ×4 (01:51→20:01)
[2018-10-29] MEDS: INSULIN ASPART [NOVOLOG] 3 ML PEN SC SCH ×4 (02:00→20:36)
[2018-10-29] MEDS: ACCU-CHEK XX SCH (02:35)
[2018-10-29] MEDS: HYDROmorphONE 2 MG TAB PO PRN ×4 (03:13→20:26)
[2018-10-29] MEDS: LORAZEPAM 1 MG TAB GTB SCH ×4 (03:14→20:25)
[2018-10-29] MEDS: LANSOPRAZOLE 30 MG CAP GTB SCH ×2 (06:03→17:42)
[2018-10-29] MEDS: GABAPENTIN (50 MG/ML PO SYG) GTB SCH ×3 (06:03→22:15)
[2018-10-29] MEDS: METHYLPREDNISOLONE 40 MG INJ IV SCH (09:04)
[2018-10-29] MEDS: CALCITRIOL 0.5 MCG CAPSULE PO SCH ×2 (09:06→20:25)
[2018-10-29] MEDS: LEVETIRACETAM (100 MG/ML) 5ML CUP GTB SCH ×2 (09:06→20:25)
[2018-10-29] MEDS: CA CARBONATE (250 MG/ML) 5ML CUP GTB SCH ×4 (09:06→20:25)
[2018-10-29] MEDS: TRIMETHOPRIM/SULFAMETHOX (PO SYG) GTB SCH (09:06)
[2018-10-29] MEDS: LISINOPRIL 5 MG TAB PO SCH (09:06)
[2018-10-29] MEDS: QUETIAPINE 100 MG TAB GTB SCH ×2 (09:07→20:26)
[2018-10-29] MEDS: MAGNESIUM OXIDE 400 MG TAB GTB SCH ×2 (09:07→20:26)
[2018-10-29] MEDS: LINAGLIPTIN 5 MG TABLET PO SCH (09:08)
[2018-10-29] MEDS: HYDROXYCHLOROQUINE 200 MG TAB PO SCH ×2 (09:08→20:26)
[2018-10-29] MEDS: L ACIDOPHIL/B LACTIS/B LONGUM CAPSULE GTB SCH ×2 (09:08→20:25)
[2018-10-29] MEDS: DULOXETINE 30 MG CAP DR PO SCH (09:08)
[2018-10-29] MEDS: METOCLOPRAMIDE 10 MG INJ IV SCH ×3 (09:08→20:25)
[2018-10-29] MEDS: MICONAZOLE 2% 30 GM CR TOP SCH ×2 (09:09→20:26)
[2018-10-29] MEDS: BALSAM PERU/CASTOR OIL 60 GM TUBE TOP SCH ×2 (09:09→20:26)
--- NOTE | 2018-10-29 09:23 | PN ---
Date/Time of Note Date/Time of Note DATE: 10/29/18 TIME: 09:21 Assessment/Plan VTE Prophylaxis Risk score (from Nsg)>0 risk: 8 SCD applied (from Nsg): Yes Pharmacological prophylaxis: other Lines/Catheters IV Catheter Type (from Nrsg): Mid Line Assessment/Plan Hospital Course brian follow up SUBJECTIVE: The patient is stable on full ventilatory support. No other acute events noted. good uop noted currently on ivf OBJECTIVE: HEENT: Head is normocephalic. NECK: Supple. HEART: Regular rate. LUNGS: Show diminished breath sounds at the base. + crackles ABDOMEN: Soft, nontender to palpation without rebound or guarding. EXTREMITIES: Negative for clubbing, cyanosis, no edema. DERMATOLOGIC: No rashes. MUSCULOSKELETAL: No joint effusion. NEUROLOGIC: No change in exam. MEDICATIONS: The patient's medications have been reviewed. I/P 1. Nonoliguric acute kidney injury. Etiology is secondary to hemodynamics. Renal function is improved. will dc ivf. will also dc epogen. ok to continue lisinopril 2. Hyponatremia. will change free water flushes with peg to NS. no indication for 3 percent saline 4. Hypomagnesemia. Continue to monitor and replete. 5. Mineral bone disorder, monitor calcium and phosphorus levels. 6. Ventilator-dependent respiratory failure. Vent settings and ABG was reviewed. Continue to monitor. 7. Adrenal insufficiency. Continue Cortef. 8. Anemia. Continue to monitor hemoglobin and hematocrit levels. 9. Dysphagia. Continue tube feeding. 10. Sepsis secondary to pneumonia. The patient is completing antibiotic course. 11. Hypotension. The patient is status post IV fluids. We will continue to monitor. We will give IV fluids as needed. 12. Tachyarrhythmia. Continue current treatment plan. 13. Seizure disorder. Continue medical management. 14. Anxiety disorder. Continue anxiolytics. Result Diagram: 10/29/18 0434 10/29/18 0434 Results 24hrs Laboratory Tests Test 10/28/18 10:00 10/28/18 14:14 10/28/18 20:15 10/29/18 02:13 Urine Color YELLOW Urine Clarity SLIGHTLY CLOUDY A Urine pH 6.0 Urine Specific 1.024 [place] Urine Ketones NEGATIVE Urine Nitrite NEGATIVE Urine Bilirubin NEGATIVE Urine NEGATIVE Urobilinogen Urine Leukocyte NEGATIVE Esterase Urine Microscopic 13 H RBC Urine Microscopic 3 WBC Urine Squamous FEW Epithelial Cells Urine Bacteria MODERATE Urine Mucus MODERATE Urine Yeast MODERATE A (Budding) Urine Hemoglobin NEGATIVE Urine Osmolality 708 Urine Random 32.64 Creatinine Urine Random 47 Sodium Urine Glucose NEGATIVE Urine Total 32.0 H Protein Bedside Glucose 143 118 107 Test 10/29/18 04:34 10/29/18 09:05 White Blood Count 22.7 H Red Blood Count 3.04 L Hemoglobin 8.7 L Hematocrit 29.1 L Mean Corpuscular 95.7 Volume Mean Corpuscular 28.6 L Hemoglobin Mean Corpuscular 29.9 L Hemoglobin Concen t Red Cell 18.3 H Distribution Width Platelet Count 281 Mean Platelet 12.1 H Volume Immature 4.400 H Granulocytes % Neutrophils % 78.1 H Lymphocytes % 4.3 L Monocytes % 10.8 Eosinophils % 2.0 Basophils % 0.4 Nucleated Red 0.1 H Blood Cells % Immature 1.000 H Granulocytes # Neutrophils # 17.7 H Lymphocytes # 1.0 Monocytes # 2.5 H Eosinophils # 0.5 Basophils # 0.1 Nucleated Red 0.0 Blood Cells # Sodium Level 133 L Potassium Level 4.0 Chloride Level 97 Carbon Dioxide 34 H Level Anion Gap 2 L Blood Urea 26 H Nitrogen Creatinine 0.33 L Est Glomerular > 60 Filtrat Rate mL/min Glucose Level 90 Calcium Level 7.8 L Phosphorus Level 3.2 Magnesium Level 1.7 Bedside Glucose 87 Exam/Review of Systems Exam Vitals Vital Signs Date Temp Pulse Resp B/P (MAP) Pulse Ox O2 O2 Flow FiO2 Time Delivery Rate 10/29/18 112 21 116/79 95 Mechanical 06:00 (91) Ventilator 10/29/18 70 05:11 10/29/18 98.1 04:00 Intake and Output 10/28/18 10/28/18 10/29/18 1515:00 23:00 07:00 IntakeIntake Total 745 ml 970 ml 900 ml OutputOutput Total 820 ml 800 ml 350 ml BalanceBalance -75 ml 170 ml 550 ml Results Results 24hrs Laboratory Tests Test 10/28/18 10:00 10/28/18 14:14 10/28/18 20:15 10/29/18 02:13 Urine Color YELLOW Urine Clarity SLIGHTLY CLOUDY A Urine pH 6.0 Urine Specific 1.024 [place] Urine Ketones NEGATIVE Urine Nitrite NEGATIVE Urine Bilirubin NEGATIVE Urine NEGATIVE Urobilinogen Urine Leukocyte NEGATIVE Esterase Urine Microscopic 13 H RBC Urine Microscopic 3 WBC Urine Squamous FEW Epithelial Cells Urine Bacteria MODERATE Urine Mucus MODERATE Urine Yeast MODERATE A (Budding) Urine Hemoglobin NEGATIVE Urine Osmolality 708 Urine Random 32.64 Creatinine Urine Random 47 Sodium Urine Glucose NEGATIVE Urine Total 32.0 H Protein Bedside Glucose 143 118 107 Test 10/29/18 04:34 10/29/18 09:05 White Blood Count 22.7 H Red Blood Count 3.04 L Hemoglobin 8.7 L Hematocrit 29.1 L Mean Corpuscular 95.7 Volume Mean Corpuscular 28.6 L Hemoglobin Mean Corpuscular 29.9 L Hemoglobin Concen t Red Cell 18.3 H Distribution Width Platelet Count 281 Mean Platelet 12.1 H Volume Immature 4.400 H Granulocytes % Neutrophils % 78.1 H Lymphocytes % 4.3 L Monocytes % 10.8 Eosinophils % 2.0 Basophils % 0.4 Nucleated Red 0.1 H Blood Cells % Immature 1.000 H Granulocytes # Neutrophils # 17.7 H Lymphocytes # 1.0 Monocytes # 2.5 H Eosinophils # 0.5 Basophils # 0.1 Nucleated Red 0.0 Blood Cells # Sodium Level 133 L Potassium Level 4.0 Chloride Level 97 Carbon Dioxide 34 H Level Anion Gap 2 L Blood Urea 26 H Nitrogen Creatinine 0.33 L Est Glomerular > 60 Filtrat Rate mL/min Glucose Level 90 Calcium Level 7.8 L Phosphorus Level 3.2 Magnesium Level 1.7 Bedside Glucose 87 Medications Medication Current Medications Acetaminophen (Tylenol Liquid) 650 mg Q4H PRN GTB MILD PAIN(1-3)OR ELEVATED TEMP Last administered on 10/16/18at 07:52; Admin Dose 650 MG; Start 10/09/18 at 14:00 Al Hydrox/Mg Hydrox/Simethicone (Mag-Al Plus) 15 ml Q6H PRN PO GASTROINTESTINAL UPSET Last administered on 10/17/18at 13:18; Admin Dose 15 ML; Start 10/09/18 at 14:00 Eye Lubricant (Artificial Tears Oph) 1 drop Q6H PRN BOTH EYES DRY EYES; Start 10/09/18 at 14:00 Bisacodyl (Dulcolax Supp) 10 mg DAILY PRN [place] CONSTIPATION; Start 10/09/18 at 14:00 Clonidine (Catapres) 0.1 mg DAILY PRN GTB ELEVATED BLOOD PRESSURE; Start 10/09/18 at 14:00 Diltiazem HCl (Cardizem Iv) 5 mg Q4 PRN IV ELEVATED HEART RATE Last administered on 10/18/18 01:09; Admin Dose 5 MG; Start 10/09/18 at 14:00 Diphenhydramine HCl (Benadryl Liquid Cup) 25 mg Q6 PRN GTB ITCHING Last administered on 10/22/18 20:25; Admin Dose 25 MG; Start 10/09/18 at 14:00 Duloxetine HCl (Cymbalta) 30 mg DAILY PO Last administered on 10/28/18 08:22; Admin Dose 30 MG; Start 10/10/18 at 09:00 Epoetin Arpan (Epogen (Esrd)) 10,000 units TuSa@1300 SC Last administered on 10/25/18 13:00; Admin Dose 10,000 UNITS; Start 10/11/18 at 13:00 Gabapentin (Neurontin Liquid) 400 mg Q8 GTB Last administered on 10/29/18 06 :03; Admin Dose 400 MG; Start 10/09/18 at 15:30 Hydralazine HCl (Apresoline) 10 mg Q4H PRN IV ELEVATED BLOOD PRESSURE; Start 10/09/18 at 14:00 Hydroxychloroquine Sulfate (Plaquenil) 200 mg BID PO Last administered on 10/28/18 20:17; Admin Dose 200 MG; Start 10/09/18 at 21:00 Diagnostic Test (Pha) (Accu-Chek) 1 ea 02 XX Last administered on 10/29/18 02:35; Admin Dose 1 EA; Start 10/10/18 at 02:00 Insulin Aspart (Novolog Insulin Pen) NOVOLOG *CUSTOM* ALGORITHM Q6H SC Last administered on 10/28/18 08:29; Admin Dose 1 UNIT; Start 10/09/18 at 14:00 Lactobacillus Acidophilus (Florajen3 Capsule) 1 each BID GTB Last administered on 10/28/18 20:17; Admin Dose 1 EACH; Start 10/09/18 at 21:00 Lansoprazole (Prevacid) 30 mg BID@,18 GTB Last administered on 10/29/18 06:03; Admin Dose 30 MG; Start 10/09/18 at 18:00 Levetiracetam (Keppra Liquid) 500 mg BID GTB Last administered on 10/28/18 20:17; Admin Dose 500 MG; Start 10/09/18 at 21:00 Magnesium Oxide (Mag-Ox 400) 400 mg BID GTB Last administered on 10/28/18 20:17; Admin Dose 400 MG; Start 10/09/18 at 21:00 Metoclopramide HCl (Reglan) 10 mg TID IV Last administered on 10/28/18 20:17; Admin Dose 10 MG; Start 10/09/18 at 21:00 Miconazole Nitrate (Miconazole 2% Cr) 1 applic BID TOP Last administered on 10/28/18 20:18; Admin Dose 1 APPLIC; Start 10/09/18 at 21:00 Miconazole Nitrate (Miconazole 2% Cr) 1 applic Q12 PRN TOP rash; Start 10/09/18 at 14:00 Ondansetron HCl (Zofran Inj) 4 mg Q4H PRN IV NAUSEA AND/OR VOMITING Last administered on 10/19/18 16:37; Admin Dose 4 MG; Start 10/09/18 at 14:00 Polyethylene Glycol (Miralax) 17 gm DAILY PRN GTB CONSTIPATION; Start 10/09/18 at 14:00 Senna (Senokot) 2 tab Q8 PRN PO CONSTIPATION; Start 10/09/18 at 14:00 Trimethoprim/ Sulfamethoxazole (Bactrim Susp) 40 ml DAILY GTB Last administered on 10/28/18 08:21; Admin Dose 40 ML; Start 10/10/18 at 09:00 Zolpidem Tartrate (Ambien) 5 mg HS PRN PO INSOMNIA Last administered on 10/21/18at 02:34; Admin Dose 5 MG; Start 10/09/18 at 14:00 Miscellaneous Information 1 ea NOTE XX ; Start 10/09/18 at 15:00 Glucose (Glutose) 15 gm Q15M PRN PO DECREASED GLUCOSE; Start 10/09/18 at 15:00 Glucose (Glutose) 22.5 gm Q15M PRN PO DECREASED GLUCOSE; Start 10/09/18 at 15:00 Dextrose (D50w Syringe) 25 ml Q15M PRN IV DECREASED GLUCOSE; Start 10/09/18 at 15:00 Dextrose (D50w Syringe) 50 ml Q15M PRN IV DECREASED GLUCOSE; Start 10/09/18 at 15:00 Glucagon (Glucagen) 1 mg Q15M PRN IM DECREASED GLUCOSE; Start 10/09/18 at 15:00 Glucose (Glutose) 15 gm Q15M PRN BUCCAL DECREASED GLUCOSE; Start 10/09/18 at 15:00 Sodium Chloride 500 ml @ 500 mls/hr Q1H PRN IV BLOOD PRESSURE SUPPORT Last administered on 10/10/18 07:59; Admin Dose 500 MLS/HR; Start 10/09/18 at 19:30 Albuterol (Ventolin Hfa) 4 puff Q6H RESP THERAPY INH Last administered on 10/29/18 08:46; Admin Dose 4 PUFF; Start 10/10/18 at 02:00 Ipratropium [place] (Atrovent Hfa) 4 puff Q6H RESP THERAPY INH Last administered on 10/29/18 08:46; Admin Dose 4 PUFF; Start 10/10/18 at 02:00 Lorazepam (Ativan) 1 mg Q4H PRN GTB AGITATION/ANXIETY Last administered on 10/19/18 17:35; Admin Dose 1 MG; Start 10/14/18 at 13:00 Lisinopril (Zestril) 2.5 mg DAILY PO Last administered on 10/26/18 09:41; Admin Dose 2.5 MG; Start 10/15/18 at 09:00 Linagliptin (Tradjenta) 5 mg DAILY PO Last administered on 10/28/18 08:22; Admin Dose 5 MG; Start 10/16/18 at 10:30 Fentanyl (Duragesic 50 Mcg/Hr Patch) 1 patch Q72H TRANSDERM Last administered on 10/27/18 02:19; Admin Dose 1 PATCH; Start 10/17/18 at 20:30 Lorazepam (Ativan) 2 mg Q6H GTB Last administered on 10/29/18 03:14; Admin Dos e 2 MG; Start 10/20/18 at 15:00 Quetiapine Fumarate (Seroquel) 100 mg BID GTB Last administered on 10/28/18 20:17; Admin Dose 100 MG; Start 10/21/18 at 21:00 Hydromorphone HCl (Dilaudid) 6 mg Q4H PRN PO MODERATE PAIN LEVEL 7-10 Last administered on 10/29/18 03:13; Admin Dose 6 MG; Start 10/21/18 at 22:00 Calcium Carbonate (Ca Carbonate) 1,250 mg QID GTB Last administered on 10/28/18 20:17; Admin Dose 1,250 MG; Start 10/24/18 at 13:00 Carvedilol (Coreg) 6.25 mg BID PO Last administered on 10/27/18 20:21; Admin Dose 6.25 MG; Start 10/27/18 at 21:00 Methylprednisolone Sodium Succinate (Solu-Medrol) 40 mg DAILY IV Last administered on 10/28/18 08:21; Admin Dose 40 MG; Start 10/28/18 at 09:00; Stop 10/30/18 at 09:01 Calcitriol (Rocaltrol) 1 mcg BID PO Last administered on 10/28/18 20:17; Admin Dose 1 MCG; Start 10/28/18 at 09:00 Sodium Chloride 1,000 ml @ 75 mls/hr [id number] IV Last administered on 10/28/18at 23:35; Admin Dose 75 MLS/HR; Start 10/28/18 at 10:00 Metoprolol Tartrate (Lopressor) 5 mg Q4H PRN IV HR>110 Hold SBP<100; Start 10/28/18 at 12:30 ELLIE QUICK DO Oct 29, 2018 09:23
--- NOTE | 2018-10-29 10:43 | CONS ---
Assessment/Plan Assessment/Plan Hospital Course (Demo Recall) IAssessment/Plan (Daily) Interval History- No acute events overnight, tolerating tube feeds well, no residual. Diarrhea improved, Neg AFB sputum x 3. Off airborne precautions. 1. Respiratory failure secondary to pneumonia versus interstitial pneumonitis from rheumatoid arthritis versus mild aspiration. -on Bactrim 2. Severe rheumatoid arthritis. 3. Quadriplegia. 4. Adrenal insufficiency. 5. Gastroparesis. -Reglan, denies nausea 6. Hypothyroidism. 7. Chronic pain syndrome. 8. Hypertension. 9. Diarrhea -VRE in stool which is likely colonized -FOB neg -likely due to tube feeds 10. Leukocytosis secondary to steroids 11.ARDS 12. Anxiety -on PO ativan Swallow eval: Impression: Oropharyngeal dysphagia associated with reduced oropharyngeal strength/coordination, delayed timing of swallowing and reduced coordination of breath with swallow safety impacting swallow safety. Pt is not safe to initiate p.o intake and is at high risk of aspiration. Recommendation: 1. Initiate dysphagia therapy 3-5x per week for 1-2 weeks 2. Keep NPO+PEG tube feeds for primary means of nutrition/hydration/medication delivery 3. Anticipate need for in-line PMV evaluation one respiratory status improves and is stabilized 4. ongoing assessment and BOT and oropharyngeal strengthening exercises, aswell as pt/family education and counseling 5. Anticipate need for MBSS prior to initiation of p.o intake PLAN: ID recommendations. Patient is on Bactrim Continue present care Nothing by mouth per swallow eval results Continue with tube feeds check residuals q 4 hours Continue Reglan. Aspiration precautions. So far there is no evidence of aspiration. If anytime there is evidence of aspiration will convert G-tube to J-tube Vent support CBC, CMP in am Patient seen and examined and plan of care discussed with Dr Minaya. Consultation Date/Type/Reason Admit Date/Time Oct 09, 2018 at 12:16 Initial Consult Date 10/12/18 Requesting Provider: NOLA VIDAL MD Date/Time of Note DATE: 10/29/18 TIME: 10:40 Exam/Review of Systems Exam Vitals Vital Signs Date Temp Pulse Resp B/P (MAP) Pulse Ox O2 O2 Flow FiO2 Time Delivery Rate 10/29/18 109 08:00 10/29/18 21 116/79 95 Mechanical 06:00 (91) Ventilator 10/29/18 70 05:11 10/29/18 98.1 04:00 Intake and Output 10/28/18 10/28/18 10/29/18 1515:00 23:00 07:00 IntakeIntake Total 745 ml 970 ml 900 ml OutputOutput Total 820 ml 800 ml 350 ml BalanceBalance -75 ml 170 ml 550 ml Constitutional: alert, other (on vent, non verbal) Psych: no complaints Head: normocephalic Eyes: nl conjunctiva ENMT: other (On Vent) Neck: supple Respiratory: clear to auscultation Cardiovascular: regular rate and rhythm Gastrointestinal: soft, non-tender Musculoskeletal: nl extremities to inspection Extremities: normal pulses Neurological: other (follows simple commands) Results Result Diagram: 10/29/18 0434 10/29/18 0434 Results 24hrs Laboratory Tests Test 10/28/18 14:14 10/28/18 20:15 10/29/18 02:13 10/29/18 04:34 Bedside Glucose 143 118 107 White Blood Count 22.7 H Red Blood Count 3.04 L Hemoglobin 8.7 L Hematocrit 29.1 L Mean Corpuscular 95.7 Volume Mean Corpuscular 28.6 L Hemoglobin Mean Corpuscular 29.9 L Hemoglobin Concent Red Cell 18.3 H Distribution Width Platelet Count 281 Mean Platelet Volume 12.1 H Immature 4.400 H Granulocytes % Neutrophils % 78.1 H Lymphocytes % 4.3 L Monocytes % 10.8 Eosinophils % 2.0 Basophils % 0.4 Nucleated Red Blood 0.1 H Cells % Immature 1.000 H Granulocytes # Neutrophils # 17.7 H Lymphocytes # 1.0 Monocytes # 2.5 H Eosinophils # 0.5 Basophils # 0.1 Nucleated Red Blood 0.0 Cells # Sodium Level 133 L Potassium Level 4.0 Chloride Level 97 Carbon Dioxide Level 34 H Anion Gap 2 L Blood Urea Nitrogen 26 H Creatinine 0.33 L Est Glomerular > 60 Filtrat Rate mL/min Glucose Level 90 Calcium Level 7.8 L Phosphorus Level 3.2 Magnesium Level 1.7 Test 10/29/18 09:05 Bedside Glucose 87 Medications Medication Current Medications Acetaminophen (Tylenol Liquid) 650 mg Q4H PRN GTB MILD PAIN(1-3)OR ELEVATED T EMP Last administered on 10/16/18at 07:52; Admin Dose 650 MG; Start 10/09/18 at 14:00 Al Hydrox/Mg Hydrox/Simethicone (Mag-Al Plus) 15 ml Q6H PRN PO GASTROINTESTINAL UPSET Last administered on 10/17/18 13:18; Admin Dose 15 ML; Start 10/09/18 at 14:00 Eye Lubricant (Artificial Tears Oph) 1 drop Q6H PRN BOTH EYES DRY EYES; Start 10/09/18 at 14:00 Bisacodyl (Dulcolax Supp) [address] CONSTIPATION; Start 10/09/18 at 14:00 Clonidine (Catapres) 0.1 mg DAILY PRN GTB ELEVATED BLOOD PRESSURE; Start 10/09/18 at 14:00 Diltiazem HCl (Cardizem Iv) 5 mg Q4 PRN IV ELEVATED HEART RATE Last administ ered on 10/18/18 01:09; Admin Dose 5 MG; Start 10/09/18 at 14:00 Diphenhydramine HCl (Benadryl Liquid Cup) 25 mg Q6 PRN GTB ITCHING Last administered on 10/22/18 20:25; Admin Dose 25 MG; Start 10/09/18 at 14:00 Duloxetine HCl (Cymbalta) 30 mg DAILY PO Last administered on 10/29/18 09:08; Admin Dose 30 MG; Start 10/10/18 at 09:00 Gabapentin (Neurontin Liquid) 400 mg Q8 GTB Last administered on 10/29/18 06:03; Admin Dose 400 MG; Start 10/09/18 at 15:30 Hydralazine HCl (Apresoline) 10 mg Q4H PRN IV ELEVATED BLOOD PRESSURE; Start 10/09/18 at 14:00 Hydroxychloroquine Sulfate (Plaquenil) 200 mg BID PO Last administered on 10/29/18 09:08; Admin Dose 200 MG; Start 10/09/18 at 21:00 Diagnostic Test (Pha) (Accu-Chek) 1 ea 02 XX Last administered on 10/29/18 02:35; Admin Dose 1 EA; Start 10/10/18 at 02:00 Insulin Aspart (Novolog Insulin Pen) NOVOLOG *CUSTOM* ALGORITHM Q6H SC Last administered on 10/28/18 08:29; Admin Dose 1 UNIT; Start 10/09/18 at 14:00 Lactobacillus Acidophilus (Florajen3 Capsule) 1 each BID GTB Last administered on 10/29/18 09:08; Admin Dose 1 EACH; Start 10/09/18 at 21:00 Lansoprazole (Prevacid) 30 mg BID@,18 GTB Last administered on 10/29/18 06:03; Admin Dose 30 MG; Start 10/09/18 at 18:00 Levetiracetam (Keppra Liquid) 500 mg BID GTB Last administered on 10/29/18 09:06; Admin Dose 500 MG; Start 10/09/18 at 21:00 Magnesium Oxide (Mag-Ox 400) 400 mg BID GTB Last administered on 10/29/18 09:07; Admin Dose 400 MG; Start 10/09/18 at 21:00 Metoclopramide HCl (Reglan) 10 mg TID IV Last administered on 10/29/18 09:08; Admin Dose 10 MG; Start 10/09/18 at 21:00 Miconazole Nitrate (Miconazole 2% Cr) 1 applic BID TOP Last administered on 10/29/18 09:09; Admin Dose 1 APPLIC; Start 10/09/18 at 21:00 Miconazole Nitrate (Miconazole 2% Cr) 1 applic Q12 PRN TOP rash; Start 10/09/18 at 14:00 Ondansetron HCl (Zofran Inj) 4 mg Q4H PRN IV NAUSEA AND/OR VOMITING Last administered on 10/19/18 16:37; Admin Dose 4 MG; Start 10/09/18 at 14:00 Polyethylene Glycol (Miralax) 17 gm DAILY PRN GTB CONSTIPATION; Start 10/09/18 at 14:00 Senna (Senokot) 2 tab Q8 PRN PO CONSTIPATION; Start 10/09/18 at 14:00 Trimethoprim/ Sulfamethoxazole (Bactrim Susp) 40 ml DAILY GTB Last administered on 10/29/18 09:06; Admin Dose 40 ML; Start 10/10/18 at 09:00 Zolpidem Tartrate (Ambien) 5 mg HS PRN PO INSOMNIA Last administered on 10/21/18 02:34; Admin Dose 5 MG; Start 10/09/18 at 14:00 Miscellaneous Information 1 ea NOTE XX ; Start 10/09/18 at 15:00 Glucose (Glutose) 15 gm Q15M PRN PO DECREASED GLUCOSE; Start 10/09/18 at 15:00 Glucose (Glutose) 22.5 gm Q15M PRN PO DECREASED GLUCOSE; Start 10/09/18 at 15:00 Dextrose (D50w Syringe) 25 ml Q15M PRN IV DECREASED GLUCOSE; Start 10/09/18 at 15:00 Dextrose (D50w Syringe) 50 ml Q15M PRN IV DECREASED GLUCOSE; Start 10/09/18 at 15:00 Glucagon (Glucagen) 1 mg Q15M PRN IM DECREASED GLUCOSE; Start 10/09/18 at 15:00 Glucose (Glutose) 15 gm Q15M PRN BUCCAL DECREASED GLUCOSE; Start 10/09/18 at 15:00 Sodium Chloride 500 ml @ 500 mls/hr Q1H PRN IV BLOOD PRESSURE SUPPORT Last administered on 10/10/18 07:59; Admin Dose 500 MLS/HR; Start 10/09/18 at 19:30 Albuterol (Ventolin Hfa) 4 puff Q6H RESP THERAPY INH Last administered on 10/29/18 08:46; Admin Dose 4 PUFF; Start 10/10/18 at 02:00 Ipratropium [place] (Atrovent Hfa) 4 puff Q6H RESP THERAPY INH Last administered on 10/29/18 08:46; Admin Dose 4 PUFF; Start 10/10/18 at 02:00 Lorazepam (Ativan) 1 mg Q4H PRN GTB AGITATION/ANXIETY Last administered on 17:35; Admin Dose 1 MG; Start 10/14/18 at 13:00 Lisinopril (Zestril) 2.5 mg DAILY PO Last administered on 10/29/18 09:06; Admin Dose 2.5 MG; Start 10/15/18 at 09:00 Linagliptin (Tradjenta) 5 mg DAILY PO Last administered on 10/29/18 09:08; Admin Dose 5 MG; Start 10/16/18 at 10:30 Fentanyl (Duragesic 50 Mcg/Hr Patch) 1 patch Q72H TRANSDERM Last administered on 10/27/18 02:19; Admin Dose 1 PATCH; Start 10/17/18 at 20:30 Lorazepam (Ativan) 2 mg Q6H GTB Last administered on 10/29/18 09:13; Admin Dose 2 MG; Start 10/20/18 at 15:00 Quetiapine Fumarate (Seroquel) 100 mg BID GTB Last administered on 10/29/18 09:07; Admin Dose 100 MG; Start 10/21/18 at 21:00 Hydromorphone HCl (Dilaudid) 6 mg Q4H PRN PO MODERATE PAIN LEVEL 7-10 Last administered on 10/29/18 09:07; Admin Dose 6 MG; Start 10/21/18 at 22:00 Calcium Carbonate (Ca Carbonate) 1,250 mg QID GTB Last administered on 10/29/18 09:06; Admin Dose 1,250 MG; Start 10/24/18 at 13:00 Carvedilol (Coreg) 6.25 mg BID PO Last administered on 10/29/18 09:07; Admin Dose 6.25 MG; Start 10/27/18 at 21:00 Methylprednisolone Sodium Succinate (Solu-Medrol) 40 mg DAILY IV Last administered on 10/29/18 09:04; Admin Dose 40 MG; Start 10/28/18 at 09:00; Stop 10/30/18 at 09:01 Calcitriol (Rocaltrol) 1 mcg BID PO Last administered on 10/29/18 09:06; Admin Dose 1 MCG; Start 10/28/18 at 09:00 Sodium Chloride 1,000 ml @ 75 mls/hr [id number] IV Last administered on 10/28/18at 23:35; Admin Dose 75 MLS/HR; Start 10/28/18 at 10:00 Metoprolol Tartrate (Lopressor) 5 mg Q4H PRN IV HR>110 Hold SBP<100; Start 10/28/18 at 12:30 CLAU MORRISSEY NP Oct 29, 2018 10:43
--- NOTE | 2018-10-29 11:43 | CONS ---
Consult Date/Type/Reason Admit Date/Time Oct 09, 2018 at 12:16 Initial Consult Date 10/12/18 Type of Consultation: Pulm/CC Requesting Provider: NOLA VIDAL MD Date/Time of Note DATE: 10/29/18 TIME: 11:38 Subjective No events. On the vent. Awake and alert. Objective Vitals Vital Signs Date Temp Pulse Resp B/P (MAP) Pulse Ox O2 O2 Flow FiO2 Time Delivery Rate 10/29/18 109 08:00 10/29/18 21 116/79 95 Mechanical 06:00 (91) Ventilator 10/29/18 70 05:11 10/29/18 98.1 04:00 Intake and Output 10/28/18 10/28/18 10/29/18 1515:00 23:00 07:00 IntakeIntake Total 745 ml 970 ml 900 ml OutputOutput Total 820 ml 800 ml 350 ml BalanceBalance -75 ml 170 ml 550 ml Exam HEENT: Neck supple; no JVD; no LAD; + trach site clean CVS: RRR, S1 and S2 CHEST: Coarse BS b/l ABD: Soft, NT, + BS EXT: No c/c; tr edema Results/Medications Result Diagram: 10/29/18 0434 10/29/18 0434 Results 24 hrs Laboratory Tests Test 10/28/18 14:14 10/28/18 20:15 10/29/18 02:13 10/29/18 04:34 Bedside Glucose 143 118 107 White Blood Count 22.7 H Red Blood Count 3.04 L Hemoglobin 8.7 L Hematocrit 29.1 L Mean Corpuscular 95.7 Volume Mean Corpuscular 28.6 L Hemoglobin Mean Corpuscular 29.9 L Hemoglobin Concent Red Cell 18.3 H Distribution Width Platelet Count 281 Mean Platelet Volume 12.1 H Immature 4.400 H Granulocytes % Neutrophils % 78.1 H Lymphocytes % 4.3 L Monocytes % 10.8 Eosinophils % 2.0 Basophils % 0.4 Nucleated Red Blood 0.1 H Cells % Immature 1.000 H Granulocytes # Neutrophils # 17.7 H Lymphocytes # 1.0 Monocytes # 2.5 H Eosinophils # 0.5 Basophils # 0.1 Nucleated Red Blood 0.0 Cells # Sodium Level 133 L Potassium Level 4.0 Chloride Level 97 Carbon Dioxide Level 34 H Anion Gap 2 L Blood Urea Nitrogen 26 H Creatinine 0.33 L Est Glomerular > 60 Filtrat Rate mL/min Glucose Level 90 Calcium Level 7.8 L Phosphorus Level 3.2 Magnesium Level 1.7 Test 10/29/18 09:05 Bedside Glucose 87 Medications Current Medications Acetaminophen (Tylenol Liquid) 650 mg Q4H PRN GTB MILD PAIN(1-3)OR ELEVATED TEMP Last administered on 10/16/18 07:52; Admin Dose 650 MG; Start 10/09/18 at 14:00 Al Hydrox/Mg Hydrox/Simethicone (Mag-Al Plus) 15 ml Q6H PRN PO GASTROINTESTINAL UPSET Last administered on 10/17/18 13:18; Admin Dose 15 ML; Start 10/09/18 at 14:00 Eye Lubricant (Artificial Tears Oph) 1 drop Q6H PRN BOTH EYES DRY EYES; Start 10/09/18 at 14:00 Bisacodyl (Dulcolax Supp) 10 mg DAILY PRN [place] CONSTIPATION; Start 10/09/18 at 14:00 Clonidine (Catapres) 0.1 mg DAILY PRN GTB ELEVATED BLOOD PRESSURE; Start 10/09/18 at 14:00 Diltiazem HCl (Cardizem Iv) 5 mg Q4 PRN IV ELEVATED HEART RATE Last administered on 10/18/18 01:09; Admin Dose 5 MG; Start 10/09/18 at 14:00 Diphenhydramine HCl (Benadryl Liquid Cup) 25 mg Q6 PRN GTB ITCHING Last administered on 10/22/18at 20:25; Admin Dose 25 MG; Start 10/09/18 at 14:00 Duloxetine HCl (Cymbalta) 30 mg DAILY PO Last administered on 10/29/18 09:08; Admin Dose 30 MG; Start 10/10/18 at 09:00 Gabapentin (Neurontin Liquid) 400 mg Q8 GTB Last administered on 10/29/18 06:03; Admin Dose 400 MG; Start 10/09/18 at 15:30 Hydralazine HCl (Apresoline) 10 mg Q4H PRN IV ELEVATED BLOOD PRESSURE; Start 10/09/18 at 14:00 Hydroxychloroquine Sulfate (Plaquenil) 200 mg BID PO Last administered on 10/29/18at 09:08; Admin Dose 200 MG; Start 10/09/18 at 21:00 Diagnostic Test (Pha) (Accu-Chek) 1 ea 02 XX Last administered on 10/29/18 02:35; Admin Dose 1 EA; Start 10/10/18 at 02:00 Insulin Aspart (Novolog Insulin Pen) NOVOLOG *CUSTOM* ALGORITHM Q6H SC Last administered on 10/28/18 08:29; Admin Dose 1 UNIT; Start 10/09/18 at 14:00 Lactobacillus Acidophilus (Florajen3 Capsule) 1 each BID GTB Last administered on 10/29/18 09:08; Admin Dose 1 EACH; Start 10/09/18 at 21:00 Lansoprazole (Prevacid) 30 mg BID@18 GTB Last administered on 10/29/18 06:03; Admin Dose 30 MG; Start 10/09/18 at 18:00 Levetiracetam (Keppra Liquid) 500 mg BID GTB Last administered on 10/29/18 09:06; Admin Dose 500 MG; Start 10/09/18 at 21:00 Magnesium Oxide (Mag-Ox 400) 400 mg BID GTB Last administered on 10/29/18 09:07; Admin Dose 400 MG; Start 10/09/18 at 21:00 Metoclopramide HCl (Reglan) 10 mg TID IV Last administered on 10/29/18 09:08; Admin Dose 10 MG; Start 10/09/18 at 21:00 Miconazole Nitrate (Miconazole 2% Cr) 1 applic BID TOP Last administered on 10/29/18 09:09; Admin Dose 1 APPLIC; Start 10/09/18 at 21:00 Miconazole Nitrate (Miconazole 2% Cr) 1 applic Q12 PRN TOP rash; Start 10/09/18 at 14:00 Ondansetron HCl (Zofran Inj) 4 mg Q4H PRN IV NAUSEA AND/OR VOMITING Last administered on 10/19/18 16:37; Admin Dose 4 MG; Start 10/09/18 at 14:00 Polyethylene Glycol (Miralax) 17 gm DAILY PRN GTB CONSTIPATION; Start 10/09/18 at 14:00 Senna (Senokot) 2 tab Q8 PRN PO CONSTIPATION; Start 10/09/18 at 14:00 Trimethoprim/ Sulfamethoxazole (Bactrim Susp) 40 ml DAILY GTB Last administered on 10/29/18 09:06; Admin Dose 40 ML; Start 10/10/18 at 09:00 Zolpidem Tartrate (Ambien) 5 mg HS PRN PO INSOMNIA Last administered on 10/21/18 02:34; Admin Dose 5 MG; Start 10/09/18 at 14:00 Miscellaneous Information 1 ea NOTE XX ; Start 10/09/18 at 15:00 Glucose (Glutose) 15 gm Q15M PRN PO DECREASED GLUCOSE; Start 10/09/18 at 15:00 Glucose (Glutose) 22.5 gm Q15M PRN PO DECREASED GLUCOSE; Start 10/09/18 at 15:00 Dextrose (D50w Syringe) 25 ml Q15M PRN IV DECREASED GLUCOSE; Start 10/09/18 at 15:00 Dextrose (D50w Syringe) 50 ml Q15M PRN IV DECREASED GLUCOSE; Start 10/09/18 at 15:00 Glucagon (Glucagen) 1 mg Q15M PRN IM DECREASED GLUCOSE; Start 10/09/18 at 15:00 Glucose (Glutose) 15 gm Q15M PRN BUCCAL DECREASED GLUCOSE; Start 10/09/18 at 15:00 Sodium Chloride 500 ml @ 500 mls/hr Q1H PRN IV BLOOD PRESSURE SUPPORT Last administered on 10/10/18at 07:59; Admin Dose 500 MLS/HR; Start 10/09/18 at 19:30 Albuterol (Ventolin Hfa) 4 puff Q6H RESP THERAPY INH Last administered on 10/29/18 08:46; Admin Dose 4 PUFF; Start 10/10/18 at 02:00 Ipratropium [place] (Atrovent Hfa) 4 puff Q6H RESP THERAPY INH Last administered on 10/29/18 08:46; Admin Dose 4 PUFF; Start 10/10/18 at 02:00 Lorazepam (Ativan) 1 mg Q4H PRN GTB AGITATION/ANXIETY Last administered on 10/19/18 17:35; Admin Dose 1 MG; Start 10/14/18 at 13:00 Lisinopril (Zestril) 2.5 mg DAILY PO Last administered on 10/29/18 09:06; Admin Dose 2.5 MG; Start 10/15/18 at 09:00 Linagliptin (Tradjenta) 5 mg DAILY PO Last administered on 10/29/18 09:08; Admin Dose 5 MG; Start 10/16/18 at 10:30 Fentanyl (Duragesic 50 Mcg/Hr Patch) 1 patch Q72H TRANSDERM Last administered on 10/27/18 02:19; Admin Dose 1 PATCH; Start 10/17/18 at 20:30 Lorazepam (Ativan) 2 mg Q6H GTB Last administered on 10/29/18 09:13; Admin Dose 2 MG; Start 10/20/18 at 15:00 Quetiapine Fumarate (Seroquel) 100 mg BID GTB Last administered on 10/29/18 09:07; Admin Dose 100 MG; Start 10/21/18 at 21:00 Hydromorphone HCl (Dilaudid) 6 mg Q4H PRN PO MODERATE PAIN LEVEL 7-10 Last administered on 10/29/18 09:07; Admin Dose 6 MG; Start 10/21/18 at 22:00 Calcium Carbonate (Ca Carbonate) 1,250 mg QID GTB Last administered on 10/29/18 09:06; Admin Dose 1,250 MG; Start 10/24/18 at 13:00 Carvedilol (Coreg) 6.25 mg BID PO Last administered on 10/29/18 09:07; Admin Dose 6.25 MG; Start 10/27/18 at 21:00 Methylprednisolone Sodium Succinate (Solu-Medrol) 40 mg DAILY IV Last administered on 10/29/18 09:04; Admin Dose 40 MG; Start 10/28/18 at 09:00; Stop 10/30/18 at 09:01 Calcitriol (Rocaltrol) 1 mcg BID PO Last administered on 10/29/18 09:06; Admin Dose 1 MCG; Start 10/28/18 at 09:00 Sodium Chloride 1,000 ml @ 75 mls/hr [id number] IV Last administered on 10/28/18 23:35; Admin Dose 75 MLS/HR; Start 10/28/18 at 10:00 Metoprolol Tartrate (Lopressor) 5 mg Q4H PRN IV HR>110 Hold SBP<100; Start 10/28/18 at 12:30 Assessment/Plan Assessment/Plan (Daily) IMP: 1. Acute on chronic hypoxemic respiratory failure with underlying acute respiratory distress syndrome. FiO2 increased to 70% with a PEEP of 8. 2. History of HSV esophagitis. 3. Chronic sepsis. 4. History of rheumatoid arthritis. 5. C-spine disease with functional quadriplegia. 6. Dysphagia with G-tube. RECS: 1. Continue mechanical, decrease FiO2 as tolerated 2. Continue tube feeding 3. ID recommendations for antibiotics 4. PT eval as tolerated 5. Appreciate Palliative input Palliative care consultation is overall prognosis extremely poor and patient is not improving. Critical care time 40 minutes YOLETTE REYNOLDS MD Oct 29, 2018 11:43
--- NOTE | 2018-10-29 13:09 | CONS ---
Consult Date/Type/Reason Admit Date/Time Oct 09, 2018 at 12:16 Initial Consult Date 10/09/18 Type of Consultation: Pulm/CC Requesting Provider: NOLA VIDAL MD Date/Time of Note DATE: 10/29/18 TIME: 13:01 Subjective NO acute change - pt comfortable - HRdown now as he is sleeping - still high FiO2. ROS: No fever, no chills, no nausea, no vomiting, no diarrhea/constipation + weight loss + anxiety No chest pain, no PND, no orthopnea No dizziness, blurred vision No thirst, no heat or cold intolerance Objective Vitals Vital Signs Date Temp Pulse Resp B/P (MAP) Pulse Ox O2 O2 Flow FiO2 Time Delivery Rate 10/29/18 109 08:00 10/29/18 21 116/79 95 Mechanical 06:00 (91) Ventilator 10/29/18 70 05:11 10/29/18 98.1 04:00 Intake and Output 10/28/18 10/28/18 10/29/18 1515:00 23:00 07:00 IntakeIntake Total 745 ml 970 ml 900 ml OutputOutput Total 820 ml 800 ml 350 ml BalanceBalance -75 ml 170 ml 550 ml Exam General: WN/WD/NAD, AOx 2-3 HEENT: Unicetric/atraumatic/EOMI (follows commands) NECK: trach Lymph: no lymphadenopathy HEART: regular with no S3, II/ systolic murmur at apex LUNGS: Coarse sounds ABD: soft, NT, ND, +BS : Intact Neuro: non focal SKIN: chronic changes EXT: trace edema Results/Medications Result Diagram: 10/29/18 0434 10/29/18 0434 Results 24 hrs Laboratory Tests Test 10/28/18 14:14 10/28/18 20:15 10/29/18 02:13 10/29/18 04:34 Bedside Glucose 143 118 107 White Blood Count 22.7 H Red Blood Count 3.04 L Hemoglobin 8.7 L Hematocrit 29.1 L Mean Corpuscular 95.7 Volume Mean Corpuscular 28.6 L Hemoglobin Mean Corpuscular 29.9 L Hemoglobin Concent Red Cell 18.3 H Distribution Width Platelet Count 281 Mean Platelet Volume 12.1 H Immature 4.400 H Granulocytes % Neutrophils % 78.1 H Lymphocytes % 4.3 L Monocytes % 10.8 Eosinophils % 2.0 Basophils % 0.4 Nucleated Red Blood 0.1 H Cells % Immature 1.000 H Granulocytes # Neutrophils # 17.7 H Lymphocytes # 1.0 Monocytes # 2.5 H Eosinophils # 0.5 Basophils # 0.1 Nucleated Red Blood 0.0 Cells # Sodium Level 133 L Potassium Level 4.0 Chloride Level 97 Carbon Dioxide Level 34 H Anion Gap 2 L Blood Urea Nitrogen 26 H Creatinine 0.33 L Est Glomerular > 60 Filtrat Rate mL/min Glucose Level 90 Calcium Level 7.8 L Phosphorus Level 3.2 Magnesium Level 1.7 Test 10/29/18 09:05 Bedside Glucose 87 Medications Current Medications Acetaminophen (Tylenol Liquid) 650 mg Q4H PRN GTB MILD PAIN(1-3)OR ELEVATED TEMP Last administered on 10/16/18 07:52; Admin Dose 650 MG; Start 10/09/18 at 14:00 Al Hydrox/Mg Hydrox/Simethicone (Mag-Al Plus) 15 ml Q6H PRN PO GASTROINTESTINAL UPSET Last administered on 10/17/18 13:18; Admin Dose 15 ML; Start 10/09/18 at 14:00 Eye Lubricant (Artificial Tears Oph) 1 drop Q6H PRN BOTH EYES DRY EYES; Start 10/09/18 at 14:00 Bisacodyl (Dulcolax Supp) 10 mg DAILY PRN [place] CONSTIPATION; Start 10/09/18 at 14:00 Clonidine (Catapres) 0.1 mg DAILY PRN GTB ELEVATED BLOOD PRESSURE; Start 10/09/18 at 14:00 Diltiazem HCl (Cardizem Iv) 5 mg Q4 PRN IV ELEVATED HEART RATE Last administered on 10/18/18 01:09; Admin Dose 5 MG; Start 10/09/18 at 14:00 Diphenhydramine HCl (Benadryl Liquid Cup) 25 mg Q6 PRN GTB ITCHING Last administered on 10/22/18 20:25; Admin Dose 25 MG; Start 10/09/18 at 14:00 Duloxetine HCl (Cymbalta) 30 mg DAILY PO Last administered on 10/29/18 09:08; Admin Dose 30 MG; Start 10/10/18 at 09:00 Gabapentin (Neurontin Liquid) 400 mg Q8 GTB Last administered on 10/29/18 06:03; Admin Dose 400 MG; Start 10/09/18 at 15:30 Hydralazine HCl (Apresoline) 10 mg Q4H PRN IV ELEVATED BLOOD PRESSURE; Start 10/09/18 at 14:00 Hydroxychloroquine Sulfate (Plaquenil) 200 mg BID PO Last administered on 10/29/18 09:08; Admin Dose 200 MG; Start 10/09/18 at 21:00 Diagnostic Test (Pha) (Accu-Chek) 1 ea 02 XX Last administered on 10/29/18 02:35; Admin Dose 1 EA; Start 10/10/18 at 02:00 Insulin Aspart (Novolog Insulin Pen) NOVOLOG *CUSTOM* ALGORITHM Q6H SC Last administered on 10/28/18 08:29; Admin Dose 1 UNIT; Start 10/09/18 at 14:00 Lactobacillus Acidophilus (Florajen3 Capsule) 1 each BID GTB Last administered on 10/29/18 09:08; Admin Dose 1 EACH; Start 10/09/18 at 21:00 Lansoprazole (Prevacid) 30 mg BID@06,18 GTB Last administered on 10/29/18 06:03; Admin Dose 30 MG; Start 10/09/18 at 18:00 Levetiracetam (Keppra Liquid) 500 mg BID GTB Last administered on 10/29/18 09:06; Admin Dose 500 MG; Start 10/09/18 at 21:00 Magnesium Oxide (Mag-Ox 400) 400 mg BID GTB Last administered on 10/29/18 09:07; Admin Dose 400 MG; Start 10/09/18 at 21:00 Metoclopramide HCl (Reglan) 10 mg TID IV Last administered on 10/29/18 09:08; Admin Dose 10 MG; Start 10/09/18 at 21:00 Miconazole Nitrate (Miconazole 2% Cr) 1 applic BID TOP Last administered on 10/29/18 09:09; Admin Dose 1 APPLIC; Start 10/09/18 at 21:00 Miconazole Nitrate (Miconazole 2% Cr) 1 applic Q12 PRN TOP rash; Start 10/09/18 at 14:00 Ondansetron HCl (Zofran Inj) 4 mg Q4H PRN IV NAUSEA AND/OR VOMITING Last administered on 10/19/18 16:37; Admin Dose 4 MG; Start 10/09/18 at 14:00 Polyethylene Glycol (Miralax) 17 gm DAILY PRN GTB CONSTIPATION; Start 10/09/18 at 14:00 Senna (Senokot) 2 tab Q8 PRN PO CONSTIPATION; Start 10/09/18 at 14:00 Trimethoprim/ Sulfamethoxazole (Bactrim Susp) 40 ml DAILY GTB Last administered on 10/29/18 09:06; Admin Dose 40 ML; Start 10/10/18 at 09:00 Zolpidem Tartrate (Ambien) 5 mg HS PRN PO INSOMNIA Last administered on 10/21/18 02:34; Admin Dose 5 MG; Start 10/09/18 at 14:00 Miscellaneous Information 1 ea NOTE XX ; Start 10/09/18 at 15:00 Glucose (Glutose) 15 gm Q15M PRN PO DECREASED GLUCOSE; Start 10/09/18 at 15:00 Glucose (Glutose) 22.5 gm Q15M PRN PO DECREASED GLUCOSE; Start 10/09/18 at 15:00 Dextrose (D50w Syringe) 25 ml Q15M PRN IV DECREASED GLUCOSE; Start 10/09/18 at 15:00 Dextrose (D50w Syringe) 50 ml Q15M PRN IV DECREASED GLUCOSE; Start 10/09/18 at 15:00 Glucagon (Glucagen) 1 mg Q15M PRN IM DECREASED GLUCOSE; Start 10/09/18 at 15:00 Glucose (Glutose) 15 gm Q15M PRN BUCCAL DECREASED GLUCOSE; Start 10/09/18 at 15:00 Sodium Chloride 500 ml @ 500 mls/hr Q1H PRN IV BLOOD PRESSURE SUPPORT Last administered on 10/10/18 07:59; Admin Dose 500 MLS/HR; Start 10/09/18 at 19:30 Albuterol (Ventolin Hfa) 4 puff Q6H RESP THERAPY INH Last administered on 10/29/18 08:46; Admin Dose 4 PUFF; Start 10/10/18 at 02:00 Ipratropium [place] (Atrovent Hfa) 4 puff Q6H RESP THERAPY INH Last a dministered on 10/29/18 08:46; Admin Dose 4 PUFF; Start 10/10/18 at 02:00 Lorazepam (Ativan) 1 mg Q4H PRN GTB AGITATION/ANXIETY Last administered on 10/19/18 17:35; Admin Dose 1 MG; Start 10/14/18 at 13:00 Lisinopril (Zestril) 2.5 mg DAILY PO Last administered on 10/29/18 09:06; Admin Dose 2.5 MG; Start 10/15/18 at 09:00 Linagliptin (Tradjenta) 5 mg DAILY PO Last administered on 10/29/18 09:08; Admin Dose 5 MG; Start 10/16/18 at 10:30 Fentanyl (Duragesic 50 Mcg/Hr Patch) 1 patch Q72H TRANSDERM Last administered on 10/27/18 02:19; Admin Dose 1 PATCH; Start 10/17/18 at 20:30 Lorazepam (Ativan) 2 mg Q6H GTB Last administered on 10/29/18 09:13; Admin Dose 2 MG; Start 10/20/18 at 15:00 Quetiapine Fumarate (Seroquel) 100 mg BID GTB Last administered on 10/29/18 09:07; Admin Dose 100 MG; Start 10/21/18 at 21:00 Hydromorphone HCl (Dilaudid) 6 mg Q4H PRN PO MODERATE PAIN LEVEL 7-10 Last ad ministered on 10/29/18 09:07; Admin Dose 6 MG; Start 10/21/18 at 22:00 Calcium Carbonate (Ca Carbonate) 1,250 mg QID GTB Last administered on 10/29/18 09:06; Admin Dose 1,250 MG; Start 10/24/18 at 13:00 Carvedilol (Coreg) 6.25 mg BID PO Last administered on 10/29/18 09:07; Admin Dose 6.25 MG; Start 10/27/18 at 21:00 Methylprednisolone Sodium Succinate (Solu-Medrol) 40 mg DAILY IV Last adminis tered on 10/29/18 09:04; Admin Dose 40 MG; Start 10/28/18 at 09:00; Stop 10/30/18 at 09:01 Calcitriol (Rocaltrol) 1 mcg BID PO Last administered on 10/29/18 09:06; Admin Dose 1 MCG; Start 10/28/18 at 09:00 Sodium Chloride 1,000 ml @ 75 mls/hr [id number] IV Last administered on 10/28/18at 23:35; Admin Dose 75 MLS/HR; Start 10/28/18 at 10:00 Metoprolol Tartrate (Lopressor) 5 mg Q4H PRN IV HR>110 Hold SBP<100; Start 10/28/18 at 12:30 Assessment/Plan Hospital Course (Demo Recall) 1. Tachycardia at this time in the setting of fevers and respiratory distress, most consistent with sinus tachycardia likely driving this process - better now, con't supportive Rx and pain management- con't anxiety Rx. Con;t supportive RX. Rate controlled at rest. 2. Hypertension with borderline hypotension at this time. -still borderline Hotn - no focal symptoms. Will monitor now. In good range. STABLE. 3. Abnormal electrocardiogram at baseline.Sinus tach. 4. Chronic respiratory failure, status post tracheostomy.-weaning vent support - con't resp Rx. Con;t resp Rx. 5. Dysphagia, status post G-tube. 6. Quadriplegia- skin care in palce. NO change. 7. Renal insufficiency, on steroids- Cr 0.33 now. Stable. Good urine output now. Good urine output. Resolved. 8. Chronic obstructive pulmonary disease - con't resp Rx per pulmonary team. On vent. 9. Rheumatoid arthritis. 10. Chronic kidney disease. 11. Diabetes mellitus- on meds. VANESSA COOPER MD Oct 29, 2018 13:09
[2018-10-29] MEDS: SOD CHLORIDE 0.9% 1,000 ML IV SCH (13:45)
--- NOTE | 2018-10-29 16:12 | CONS ---
Assessment/Plan Assessment/Plan Problems: (1) Hypocalcemia Onset Date: ~ 10/14/2018 Status: Acute Comment: Calcium levels remain stable compared to yesterday. Consultation Date/Type/Reason Admit Date/Time Oct 09, 2018 at 12:16 Initial Consult Date 10/12/18 Type of Consult Endocrine Reason for Consultation Hypocalcemia Requesting Provider: NOLA VIDAL MD Date/Time of Note DATE: 10/29/18 TIME: 15:46 Exam/Review of Systems Exam Vitals Vital Signs Date Temp Pulse Resp B/P (MAP) Pulse Ox O2 O2 Flow FiO2 Time Delivery Rate 10/29/18 102 18 87/55 (66) 98 Mechanical 15:00 Ventilator Trach Collar 10/29/18 98.1 12:00 10/29/18 65 08:00 Intake and Output 10/28/18 10/28/18 10/29/18 1515:00 23:00 07:00 IntakeIntake Total 745 ml 970 ml 940 ml OutputOutput Total 820 ml 800 ml 350 ml BalanceBalance -75 ml 170 ml 590 ml Eyes: other (spontaneous eye aperture) ENMT: intubated Respiratory: respirations (coarse) Cardiovascular: other (sinus tachycardia) Additional Comments labs reviewed Results Result Diagram: 10/29/18 0434 10/29/18 0434 Results 24hrs Laboratory Tests Test 10/28/18 20:15 10/29/18 02:13 10/29/18 04:34 10/29/18 09:05 Bedside Glucose 118 107 87 White Blood Count 22.7 H Red Blood Count 3.04 L Hemoglobin 8.7 L Hematocrit 29.1 L Mean Corpuscular 95.7 Volume Mean Corpuscular 28.6 L Hemoglobin Mean Corpuscular 29.9 L Hemoglobin Concent Red Cell 18.3 H Distribution Width Platelet Count 281 Mean Platelet Volume 12.1 H Immature 4.400 H Granulocytes % Neutrophils % 78.1 H Lymphocytes % 4.3 L Monocytes % 10.8 Eosinophils % 2.0 Basophils % 0.4 Nucleated Red Blood 0.1 H Cells % Immature 1.000 H Granulocytes # Neutrophils # 17.7 H Lymphocytes # 1.0 Monocytes # 2.5 H Eosinophils # 0.5 Basophils # 0.1 Nucleated Red Blood 0.0 Cells # Sodium Level 133 L Potassium Level 4.0 Chloride Level 97 Carbon Dioxide Level 34 H Anion Gap 2 L Blood Urea Nitrogen 26 H Creatinine 0.33 L Est Glomerular > 60 Filtrat Rate mL/min Glucose Level 90 Calcium Level 7.8 L Phosphorus Level 3.2 Magnesium Level 1.7 Test 10/29/18 13:44 Bedside Glucose 136 Medications Medication Current Medications Acetaminophen (Tylenol Liquid) 650 mg Q4H PRN GTB MILD PAIN(1-3)OR ELEVATED TEMP Last administered on 10/16/18 07:52; Admin Dose 650 MG; Start 10/09/18 at 14:00 Al Hydrox/Mg Hydrox/Simethicone (Mag-Al Plus) 15 ml Q6H PRN PO GASTROINTESTINAL UPSET Last administered on 10/17/18 13:18; Admin Dose 15 ML; Start 10/09/18 at 14:00 Eye Lubricant (Artificial Tears Oph) 1 drop Q6H PRN BOTH EYES DRY EYES; Start 10/09/18 at 14:00 Bisacodyl (Dulcolax Supp) 10 mg DAILY PRN [place] CONSTIPATION; Start 10/09/18 at 14:00 Clonidine (Catapres) 0.1 mg DAILY PRN GTB ELEVATED BLOOD PRESSURE; Start 10/09/18 at 14:00 Diltiazem HCl (Cardizem Iv) 5 mg Q4 PRN IV ELEVATED HEART RATE Last administered on 10/18/18 01:09; Admin Dose 5 MG; Start 10/09/18 at 14:00 Diphenhydramine HCl (Benadryl Liquid Cup) 25 mg Q6 PRN GTB ITCHING Last administered on 10/22/18 20:25; Admin Dose 25 MG; Start 10/09/18 at 14:00 Duloxetine HCl (Cymbalta) 30 mg DAILY PO Last administered on 10/29/18 09:08; Admin Dose 30 MG; Start 10/10/18 at 09:00 Gabapentin (Neurontin Liquid) 400 mg Q8 GTB Last administered on 10/29/18 13:44; Admin Dose 400 MG; Start 10/09/18 at 15:30 Hydralazine HCl (Apresoline) 10 mg Q4H PRN IV ELEVATED BLOOD PRESSURE; Start 10/09/18 at 14:00 Hydroxychloroquine Sulfate (Plaquenil) 200 mg BID PO Last administered on 10/29/18 09:08; Admin Dose 200 MG; Start 10/09/18 at 21:00 Diagnostic Test (Pha) (Accu-Chek) 1 ea 02 XX Last administered on 10/29/18 02:35; Admin Dose 1 EA; Start 10/10/18 at 02:00 Insulin Aspart (Novolog Insulin Pen) NOVOLOG *CUSTOM* ALGORITHM Q6H SC Last administered on 10/28/18 08:29; Admin Dose 1 UNIT; Start 10/09/18 at 14:00 Lactobacillus Acidophilus (Florajen3 Capsule) 1 each BID GTB Last administered on 10/29/18 09:08; Admin Dose 1 EACH; Start 10/09/18 at 21:00 Lansoprazole (Prevacid) 30 mg BID@18 GTB Last administered on 10/29/18 06:03; Admin Dose 30 MG; Start 10/09/18 at 18:00 Levetiracetam (Keppra Liquid) 500 mg BID GTB Last administered on 10/29/18 09:06; Admin Dose 500 MG; Start 10/09/18 at 21:00 Magnesium Oxide (Mag-Ox 400) 400 mg BID GTB Last administered on 10/29/18 09:07; Admin Dose 400 MG; Start 10/09/18 at 21:00 Metoclopramide HCl (Reglan) 10 mg TID IV Last administered on 10/29/18 13:45; Admin Dose 10 MG; Start 10/09/18 at 21:00 Miconazole Nitrate (Miconazole 2% Cr) 1 applic BID TOP Last administered on 10/29/18 09:09; Admin Dose 1 APPLIC; Start 10/09/18 at 21:00 Miconazole Nitrate (Miconazole 2% Cr) 1 applic Q12 PRN TOP rash; Start 10/09/18 at 14:00 Ondansetron HCl (Zofran Inj) 4 mg Q4H PRN IV NAUSEA AND/OR VOMITING Last administered on 10/19/18 16:37; Admin Dose 4 MG; Start 10/09/18 at 14:00 Polyethylene Glycol (Miralax) 17 gm DAILY PRN GTB CONSTIPATION; Start 10/09/18 at 14:00 Senna (Senokot) 2 tab Q8 PRN PO CONSTIPATION; Start 10/09/18 at 14:00 Trimethoprim/ Sulfamethoxazole (Bactrim Susp) 40 ml DAILY GTB Last administered on 10/29/18 09:06; Admin Dose 40 ML; Start 10/10/18 at 09:00 Zolpidem Tartrate (Ambien) 5 mg HS PRN PO INSOMNIA Last administered on 10/21/18 02:34; Admin Dose 5 MG; Start 10/09/18 at 14:00 Miscellaneous Information 1 ea NOTE XX ; Start 10/09/18 at 15:00 Glucose (Glutose) 15 gm Q15M PRN PO DECREASED GLUCOSE; Start 10/09/18 at 15:00 Glucose (Glutose) 22.5 gm Q15M PRN PO DECREASED GLUCOSE; Start 10/09/18 at 15:00 Dextrose (D50w Syringe) 25 ml Q15M PRN IV DECREASED GLUCOSE; Start 10/09/18 at 15:00 Dextrose (D50w Syringe) 50 ml Q15M PRN IV DECREASED GLUCOSE; Start 10/09/18 at 15:00 Glucagon (Glucagen) 1 mg Q15M PRN IM DECREASED GLUCOSE; Start 10/09/18 at 15:00 Glucose (Glutose) 15 gm Q15M PRN BUCCAL DECREASED GLUCOSE; Start 10/09/18 at 15:00 Sodium Chloride 500 ml @ 500 mls/hr Q1H PRN IV BLOOD PRESSURE SUPPORT Last administered on 10/10/18at 07:59; Admin Dose 500 MLS/HR; Start 10/09/18 at 19:30 Albuterol (Ventolin Hfa) 4 puff Q6H RESP THERAPY INH Last administered on 10/29/18 15:18; Admin Dose 4 PUFF; Start 10/10/18 at 02:00 Ipratropium [place] (Atrovent Hfa) 4 puff Q6H RESP THERAPY INH Last administered on 10/29/18 15:18; Admin Dose 4 PUFF; Start 10/10/18 at 02:00 Lorazepam (Ativan) 1 mg Q4H PRN GTB AGITATION/ANXIETY Last administered on 10/19/18 17:35; Admin Dose 1 MG; Start 10/14/18 at 13:00 Lisinopril (Zestril) 2.5 mg DAILY PO Last administered on 10/29/18 09:06; Admin Dose 2.5 MG; Start 10/15/18 at 09:00 Linagliptin (Tradjenta) 5 mg DAILY PO Last administered on 10/29/18 09:08; Admin Dose 5 MG; Start 10/16/18 at 10:30 Fentanyl (Duragesic 50 Mcg/Hr Patch) 1 patch Q72H TRANSDERM Last administered on 10/27/18 02:19; Admin Dose 1 PATCH; Start 10/17/18 at 20:30 Lorazepam (Ativan) 2 mg Q6H GTB Last administered on 10/29/18 15:26; Admin Dose 2 MG; Start 10/20/18 at 15:00 Quetiapine Fumarate (Seroquel) 100 mg BID GTB Last administered on 10/29/18 09:07; Admin Dose 100 MG; Start 10/21/18 at 21:00 Hydromorphone HCl (Dilaudid) 6 mg Q4H PRN PO MODERATE PAIN LEVEL 7-10 Last administered on 10/29/18 15:27; Admin Dose 6 MG; Start 10/21/18 at 22:00 Calcium Carbonate (Ca Carbonate) 1,250 mg QID GTB Last administered on 10/29/18 13:44; Admin Dose 1,250 MG; Start 10/24/18 at 13:00 Carvedilol (Coreg) 6.25 mg BID PO Last administered on 10/29/18 09:07; Admin Dose 6.25 MG; Start 10/27/18 at 21:00 Methylprednisolone Sodium Succinate (Solu-Medrol) 40 mg DAILY IV Last administered on 10/29/18 09:04; Admin Dose 40 MG; Start 10/28/18 at 09:00; Stop 10/30/18 at 09:01 Calcitriol (Rocaltrol) 1 mcg BID PO Last administered on 10/29/18 09:06; Admin Dose 1 MCG; Start 10/28/18 at 09:00 Sodium Chloride 1,000 ml @ 75 mls/hr [id number] IV Last administered on 10/29/18 13:45; Admin Dose 75 MLS/HR; Start 10/28/18 at 10:00 Metoprolol Tartrate (Lopressor) 5 mg Q4H PRN IV HR>110 Hold SBP<100; Start 10/28/18 at 12:30 SARAH PASCAL MD Oct 29, 2018 15:58
--- NOTE | 2018-10-29 18:20 | PN ---
Date/Time of Note Date/Time of Note DATE: 10/29/18 TIME: 18:05 Assessment/Plan VTE Prophylaxis Risk score (from Ns)>0 risk: 7 [place] [facility] [place] contraindicated: other Pharmacological prophylaxis: other Pharm contraindication: other Lines/Catheters [facility] C[facility]from [facility] Mid Line Central line still needed: Yes Urinary Cath still in place: No Assessment/Plan Assessment/Plan - Acute on chronic hypoxemic respiratory failure with underlying ARDS, continue ventilatory support. Dr. Villa is following in pulmonology consultation. - Acute kidney injury, continue to monitor BUN and creatinine. G-tube feeding changed to renal source. Dr. Hobson is following in nephrology consultation. -Tachycardia, Dr. Joshi is following in cardiology consultation. - Cardiomyopathy with EF 35-40% - Rheumatoid arthritis with steroid dependence. The patient's pain seems to be controlled with the current dose of fentanyl. - Dysphagia. Continue GT feeding. - Anemia of chronic disease. - Hypoparathyroidism with recent hypercalcemia, status post pamidronate. - Hypertension. - Functional quadriplegia - Hx of severe cervical spinal cord stenosis with cord compression from C3-C5, s/p laminectomy. - History of fibromyalgia rheumatica - Hx of VAT on 08/11/2018 - Poor prognosis, Dr. Zurita is asked to see patient in palliative care consultation. Critical care time spent 30 minutes. Further recommendations based on clinical course. Plan of care discussed with Dr. Rosales Result Diagram: 10/29/18 0434 10/29/18 0434 Results 24hrs Laboratory Tests Test 10/28/18 20:15 10/29/18 02:13 10/29/18 04:34 10/29/18 09:05 Bedside Glucose 118 107 87 White Blood Count 22.7 H Red Blood Count 3.04 L Hemoglobin 8.7 L Hematocrit 29.1 L Mean Corpuscular 95.7 Volume Mean Corpuscular 28.6 L Hemoglobin Mean Corpuscular 29.9 L Hemoglobin Concent Red Cell 18.3 H Distribution Width Platelet Count 281 Mean Platelet Volume 12.1 H Immature 4.400 H Granulocytes % Neutrophils % 78.1 H Lymphocytes % 4.3 L Monocytes % 10.8 Eosinophils % 2.0 Basophils % 0.4 Nucleated Red Blood 0.1 H Cells % Immature 1.000 H Granulocytes # Neutrophils # 17.7 H Lymphocytes # 1.0 Monocytes # 2.5 H Eosinophils # 0.5 Basophils # 0.1 Nucleated Red Blood 0.0 Cells # Sodium Level 133 L Potassium Level 4.0 Chloride Level 97 Carbon Dioxide Level 34 H Anion Gap 2 L Blood Urea Nitrogen 26 H Creatinine 0.33 L Est Glomerular > 60 Filtrat Rate mL/min Glucose Level 90 Calcium Level 7.8 L Phosphorus Level 3.2 Magnesium Level 1.7 Test 10/29/18 13:44 Bedside Glucose 136 Subjective 24 Hr Interval Summary Subjective hx not possible: pt non-verbal, pt critical, pt critical status Constitutional: requiring IVF, requiring O2 Exam/Review of Systems Exam Vitals Vital Signs Date Temp Pulse Resp B/P (MAP) Pulse Ox O2 O2 Flow FiO2 Time Delivery Rate 10/29/18 98.9 102 16 91/61 (71) 95 Mechanical 16:00 Ventilator Trach Collar 10/29/18 60 16:00 Intake and Output 10/28/18 10/28/18 10/29/18 1515:00 23:00 07:00 IntakeIntake Total 745 ml 970 ml 1015 ml OutputOutput Total 820 ml 800 ml 350 ml BalanceBalance -75 ml 170 ml 665 ml Constitutional: non-verbal, frail Psych: nl mood/affect Eyes: nl lids, nl sclera ENMT: nl external ears & nose Neck: other Respiratory: diminished breath sounds Cardiovascular: nl pulses, other Gastrointestinal: soft Musculoskeletal: nl extremities to inspection Extremities: normal pulses Neurological: confused, lethargic Lymph: nl lymph nodes Results Results 24hrs Laboratory Tests Test 10/28/18 20:15 10/29/18 02:13 10/29/18 04:34 10/29/18 09:05 Bedside Glucose 118 107 87 White Blood Count 22.7 H Red Blood Count 3.04 L Hemoglobin 8.7 L Hematocrit 29.1 L Mean Corpuscular 95.7 Volume Mean Corpuscular 28.6 L Hemoglobin Mean Corpuscular 29.9 L Hemoglobin Concent Red Cell 18.3 H Distribution Width Platelet Count 281 Mean Platelet Volume 12.1 H Immature 4.400 H Granulocytes % Neutrophils % 78.1 H Lymphocytes % 4.3 L Monocytes % 10.8 Eosinophils % 2.0 Basophils % 0.4 Nucleated Red Blood 0.1 H Cells % Immature 1.000 H Granulocytes # Neutrophils # 17.7 H Lymphocytes # 1.0 Monocytes # 2.5 H Eosinophils # 0.5 Basophils # 0.1 Nucleated Red Blood 0.0 Cells # Sodium Level 133 L Potassium Level 4.0 Chloride Level 97 Carbon Dioxide Level 34 H Anion Gap 2 L Blood Urea Nitrogen 26 H Creatinine 0.33 L Est Glomerular > 60 Filtrat Rate mL/min Glucose Level 90 Calcium Level 7.8 L Phosphorus Level 3.2 Magnesium Level 1.7 Test 10/29/18 13:44 Bedside Glucose 136 Medications Medication Current Medications Acetaminophen (Tylenol Liquid) 650 mg Q4H PRN GTB MILD PAIN(1-3)OR ELEVATED TEMP Last administered on 10/16/18 07:52; Admin Dose 650 MG; Start 10/09/18 at 14:00 Al Hydrox/Mg Hydrox/Simethicone (Mag-Al Plus) 15 ml Q6H PRN PO GASTROINTESTINAL UPSET Last administered on 10/17/18 13:18; Admin Dose 15 ML; Start 10/09/18 at 14:00 Eye Lubricant (Artificial Tears Oph) 1 drop Q6H PRN BOTH EYES DRY EYES; Start 10/09/18 at 14:00 Bisacodyl (Dulcolax Supp) 10 mg DAILY PRN [place] CONSTIPATION; Start 10/09/18 at 14:00 Clonidine (Catapres) 0.1 mg DAILY PRN GTB ELEVATED BLOOD PRESSURE; Start 10/09 at 14:00 Diltiazem HCl (Cardizem Iv) 5 mg Q4 PRN IV ELEVATED HEART RATE Last administered on 10/18/18 01:09; Admin Dose 5 MG; Start 10/09/18 at 14:00 Diphenhydramine HCl (Benadryl Liquid Cup) 25 mg Q6 PRN GTB ITCHING Last administered on 10/22/18 20:25; Admin Dose 25 MG; Start 10/09/18 at 14:00 Duloxetine HCl (Cymbalta) 30 mg DAILY PO Last administered on 10/29/18 09:08; Admin Dose 30 MG; Start 10/10/18 at 09:00 Gabapentin (Neurontin Liquid) 400 mg Q8 GTB Last administered on 10/29/18 13:44; Admin Dose 400 MG; Start 10/09/18 at 15:30 Hydralazine HCl (Apresoline) 10 mg Q4H PRN IV ELEVATED BLOOD PRESSURE; Start 10/09/18 at 14:00 Hydroxychloroquine Sulfate (Plaquenil) 200 mg BID PO Last administered on 10/29/18 09:08; Admin Dose 200 MG; Start 10/09/18 at 21:00 Diagnostic Test (Pha) (Accu-Chek) 1 ea 02 XX Last administered on 10/29/18 02:35; Admin Dose 1 EA; Start 10/10/18 at 02:00 Insulin Aspart (Novolog Insulin Pen) NOVOLOG *CUSTOM* ALGORITHM Q6H SC Last administered on 10/28/18 08:29; Admin Dose 1 UNIT; Start 10/09/18 at 14:00 Lactobacillus Acidophilus (Florajen3 Capsule) 1 each BID GTB Last administered on 10/29/18 09:08; Admin Dose 1 EACH; Start 10/09/18 at 21:00 Lansoprazole (Prevacid) 30 mg BID@,18 GTB Last administered on 10/29/18 17:42; Admin Dose 30 MG; Start 10/09/18 at 18:00 Levetiracetam (Keppra Liquid) 500 mg BID GTB Last administered on 10/29/18 09:06; Admin Dose 500 MG; Start 10/09/18 at 21:00 Magnesium Oxide (Mag-Ox 400) 400 mg BID GTB Last administered on 10/29/18 09:07; Admin Dose 400 MG; Start 10/09/18 at 21:00 Metoclopramide HCl (Reglan) 10 mg TID IV Last administered on 10/29/18 13:45; Admin Dose 10 MG; Start 10/09/18 at 21:00 Miconazole Nitrate (Miconazole 2% Cr) 1 applic BID TOP Last administered on 10/29/18 09:09; Admin Dose 1 APPLIC; Start 10/09/18 at 21:00 Miconazole Nitrate (Miconazole 2% Cr) 1 applic Q12 PRN TOP rash; Start 10/09/18 at 14:00 Ondansetron HCl (Zofran Inj) 4 mg Q4H PRN IV NAUSEA AND/OR VOMITING Last administered on 10/19/18 16:37; Admin Dose 4 MG; Start 10/09/18 at 14:00 Polyethylene Glycol (Miralax) 17 gm DAILY PRN GTB CONSTIPATION; Start 10/09/18 at 14:00 Senna (Senokot) 2 tab Q8 PRN PO CONSTIPATION; Start 10/09/18 at 14:00 Trimethoprim/ Sulfamethoxazole (Bactrim Susp) 40 ml DAILY GTB Last administered on 10/29/18at 09:06; Admin Dose 40 ML; Start 10/10/18 at 09:00 Zolpidem Tartrate (Ambien) 5 mg HS PRN PO INSOMNIA Last administered on 10/21/18at 02:34; Admin Dose 5 MG; Start 10/09/18 at 14:00 Miscellaneous Information 1 ea NOTE XX ; Start 10/09/18 at 15:00 Glucose (Glutose) 15 gm Q15M PRN PO DECREASED GLUCOSE; Start 10/09/18 at 15:00 Glucose (Glutose) 22.5 gm Q15M PRN PO DECREASED GLUCOSE; Start 10/09/18 at 15:00 Dextrose (D50w Syringe) 25 ml Q15M PRN IV DECREASED GLUCOSE; Start 10/09/18 at 15:00 Dextrose (D50w Syringe) 50 ml Q15M PRN IV DECREASED GLUCOSE; Start 10/09/18 at 15:00 Glucagon (Glucagen) 1 mg Q15M PRN IM DECREASED GLUCOSE; Start 10/09/18 at 15:00 Glucose (Glutose) 15 gm Q15M PRN BUCCAL DECREASED GLUCOSE; Start 10/09/18 at 15:00 Sodium Chloride 500 ml @ 500 mls/hr Q1H PRN IV BLOOD PRESSURE SUPPORT Last administered on 10/10/18at 07:59; Admin Dose 500 MLS/HR; Start 10/09/18 at 19:30 Albuterol (Ventolin Hfa) 4 puff Q6H RESP THERAPY INH Last administered on 10/29/18 15:18; Admin Dose 4 PUFF; Start 10/10/18 at 02:00 Ipratropium [place] (Atrovent Hfa) 4 puff Q6H RESP THERAPY INH Last administered on 10/29/18at 15:18; Admin Dose 4 PUFF; Start 10/10/18 at 02:00 Lorazepam (Ativan) 1 mg Q4H PRN GTB AGITATION/ANXIETY Last administered on 10/19/18at 17:35; Admin Dose 1 MG; Start 10/14/18 at 13:00 Lisinopril (Zestril) 2.5 mg DAILY PO Last administered on 10/29/18 09:06; Admin Dose 2.5 MG; Start 10/15/18 at 09:00 Linagliptin (Tradjenta) 5 mg DAILY PO Last administered on 10/29/18 09:08; Admin Dose 5 MG; Start 10/16/18 at 10:30 Fentanyl (Duragesic 50 Mcg/Hr Patch) 1 patch Q72H TRANSDERM Last administered on 10/27/18 02:19; Admin Dose 1 PATCH; Start 10/17/18 at 20:30 Lorazepam (Ativan) 2 mg Q6H GTB Last administered on 10/29/18 15:26; Admin D ose 2 MG; Start 10/20/18 at 15:00 Quetiapine Fumarate (Seroquel) 100 mg BID GTB Last administered on 10/29/18 09:07; Admin Dose 100 MG; Start 10/21/18 at 21:00 Hydromorphone HCl (Dilaudid) 6 mg Q4H PRN PO MODERATE PAIN LEVEL 7-10 Last administered on 10/29/18 15:27; Admin Dose 6 MG; Start 10/21/18 at 22:00 Calcium Carbonate (Ca Carbonate) 1,250 mg QID GTB Last administered on 10/29/18 17:42; Admin Dose 1,250 MG; Start 10/24/18 at 13:00 Carvedilol (Coreg) 6.25 mg BID PO Last administered on 10/29/18 09:07; Admin Dose 6.25 MG; Start 10/27/18 at 21:00 Methylprednisolone Sodium Succinate (Solu-Medrol) 40 mg DAILY IV Last administered on 10/29/18 09:04; Admin Dose 40 MG; Start 10/28/18 at 09:00; Stop 10/30/18 at 09:01 Calcitriol (Rocaltrol) 1 mcg BID PO Last administered on 10/29/18 09:06; Admin Dose 1 MCG; Start 10/28/18 at 09:00 Sodium Chloride 1,000 ml @ 75 mls/hr [id number] IV Last administered on 10/29/18 13:45; Admin Dose 75 MLS/HR; Start 10/28/18 at 10:00 Metoprolol Tartrate (Lopressor) 5 mg Q4H PRN IV HR>110 Hold SBP<100; Start 10/28/18 at 12:30 TOMMY MARTELL Oct 29, 2018 18:19
--- NOTE | 2018-10-29 21:35 | CONS ---
Assessment/Plan Assessment/Plan Hospital Course (Demo Recall) # sepsis, respiratory - recurrent sepsis on 10/08/2018 due to aspiration pneumonia, HCAP, improved - possible aspiration pneumonia, recurrent pneumonia due to Citrobacter, improved - acute on chronic hypoxic and hypercarbic respiratory failure - persistent leukocytosis likely due to steroid margination - h/o tracheostomy on 08/26/2018 - h/o "Increased mild left apical pneumothorax" per CXR on 09/19/2018; no pneumothorax mentioned on subsequent CXR - h/o pneumomediastinum - h/o VAT on 08/11/2018 - h/o asthma/COPD exacerbation - h/o acute tracheobronchitis - h/o MAC infection but CT chest did not demonstrate features suggestive of this per chart review - On this admission AFB smear x3 have been negative (10/21/18 0600, 10/21/18 1530, and 10/22/18 0040), pneumocystis jiroveci 10/18/18 not detected. Coccioides screen negative. TB Quant Gold neg. - h/o HCAP due to citrobacter, based on resp culture on 09/13/2018 - h/o aspergillus growing out of resp culture per (pulm note by Dr. Lopez) on 07/25/2018 - h/o elevated 1,3 [id number] level = 232 on 08/06/2018 - h/o MSSA septicemia # GI - diarrhea, C diff on 10/09/2018 was negative - h/o HSV esophagitis, took acyclovir x21 days from 08/26/2018 - h/o EGD, esophageal biopsy showed esophageal squamous mucosa showing acute inflammation, granulation tissue, and ulceration consistent with ulcerative esophagitis, rare multinucleated cells with morphology suggestive of vial cytopathic changes, No cardiac mucosa, intestinal metaplasia, dysplasia, or malignancy defined - GERD - PUD # renal/ - Hypokalemia, recurrent - CKD 2 - BPH # cardiac - tachycardia, persistent - ACD - HTN - HLD # endo - T2DM - Hgb A1c 7.2% - secondary adrenal insufficiency; steroid dependent - Hypoparathyroidism - Hypercalcemia - Pamidronate was ordered # neuro - toxic metabolic encephalopathy - Cervical myopathy - Severe cervical spinal cord stenosis with cord compression from C3-C5, s/p laminectomy in ~03/2018 - Chronic pain syndrome - Functional quadriplegia - Seizure d/o # other chronic conditions - RA with chronic steroid dependence - Immunocompromised status - Fibromyalgia - DDD - H/o multiple rib fracture - Pt completed: meropenem (09/25/2018-10/02/2018), vancomycin (09/25/18-09/28/18), pip/tazo (10/09/2018-10/15/2018) Recommendations: - Pending: AFB culture x3 to r/o mycobacterium avium intracellulaire (AFB smear x3 have resulted negative) - Continue Bactrim for pneumocystis PPX - Continue to monitor off other systemic antibiotic Management d/w RN Dev and with Dr. Davila Critical care time spent: 30 min. Consultation Date/Type/Reason Admit Date/Time Oct 09, 2018 at 12:16 Initial Consult Date 10/12/18 Type of Consult Infectious Disease Requesting Provider: NOLA VIDAL MD Date/Time of Note DATE: 10/29/18 TIME: 21:33 24 HR Interval Summary Free Text/Dictation Pt remains afebrile, WBC down to 22.7, and FiO2 weaned to 50%. Pt is tolerating GT feeds; still has diarrhea via Flexiseal. Subjective hx not possible: pt non-verbal Exam/Review of Systems Exam Vitals Vital Signs Date Temp Pulse Resp B/P (MAP) Pulse Ox O2 O2 Flow FiO2 Time Delivery Rate 10/29/18 103 21 92/58 (69) 94 Mechanical 21:00 Ventilator 10/29/18 98.1 20:00 10/29/18 55 20:00 Intake and Output 10/28/18 10/28/18 10/29/18 1515:00 23:00 07:00 IntakeIntake Total 745 ml 970 ml 1015 ml OutputOutput Total 820 ml 800 ml 350 ml BalanceBalance -75 ml 170 ml 665 ml Exam Constitutional: frail, other (asleep) Head: normocephalic, atraumatic Eyes: nl conjunctiva, nl lids, nl sclera ENMT: nl external ears & nose, nl nasal mucosa & septum Neck: other (trach is midline, site c/d/i, on ventilator support with FiO2 50%) Respiratory: normal air movement, diminished breath sounds Cardiovascular: regular rate and rhythm, nl pulses, other (RUE PICC site is c/d/i) Gastrointestinal: soft, other (GT site is c/d/i, rectal tube in place with liquid brown stool) Musculoskeletal: nl extremities to inspection Extremities: normal pulses Neurological: other (deferred as pt is asleep) Skin: nl turgor, other (stage II coccygeal ulcer); No rash or lesions Results Result Diagram: 10/29/18 0434 10/29/18 0434 Results 24hrs Laboratory Tests Test 10/29/18 02:13 10/29/18 04:34 10/29/18 09:05 10/29/18 13:44 Bedside Glucose 107 87 136 White Blood Count 22.7 H Red Blood Count 3.04 L Hemoglobin 8.7 L Hematocrit 29.1 L Mean Corpuscular 95.7 Volume Mean Corpuscular 28.6 L Hemoglobin Mean Corpuscular 29.9 L Hemoglobin Concent Red Cell 18.3 H Distribution Width Platelet Count 281 Mean Platelet Volume 12.1 H Immature 4.400 H Granulocytes % Neutrophils % 78.1 H Lymphocytes % 4.3 L Monocytes % 10.8 Eosinophils % 2.0 Basophils % 0.4 Nucleated Red Blood 0.1 H Cells % Immature 1.000 H Granulocytes # Neutrophils # 17.7 H Lymphocytes # 1.0 Monocytes # 2.5 H Eosinophils # 0.5 Basophils # 0.1 Nucleated Red Blood 0.0 Cells # Sodium Level 133 L Potassium Level 4.0 Chloride Level 97 Carbon Dioxide Level 34 H Anion Gap 2 L Blood Urea Nitrogen 26 H Creatinine 0.33 L Est Glomerular > 60 Filtrat Rate mL/min Glucose Level 90 Calcium Level 7.8 L Phosphorus Level 3.2 Magnesium Level 1.7 Test 10/29/18 20:32 Bedside Glucose 161 Medications Medication Current Medications Acetaminophen (Tylenol Liquid) 650 mg Q4H PRN GTB MILD PAIN(1-3)OR ELEVATED TEMP Last administered on 10/16/18at 07:52; Admin Dose 650 MG; Start 10/09/18 at 14:00 Al Hydrox/Mg Hydrox/Simethicone (Mag-Al Plus) 15 ml Q6H PRN PO GASTROINTESTINAL UPSET Last administered on 10/17/18 13:18; Admin Dose 15 ML; Start 10/09/18 at 14:00 Eye Lubricant (Artificial Tears Oph) 1 drop Q6H PRN BOTH EYES DRY EYES; Start 10/09/18 at 14:00 Bisacodyl (Dulcolax Supp) 10 mg DAILY PRN [place] CONSTIPATION; Start 10/09/18 at 14:00 Clonidine (Catapres) 0.1 mg DAILY PRN GTB ELEVATED BLOOD PRESSURE; Start 10/09/18 at 14:00 Diltiazem HCl (Cardizem Iv) 5 mg Q4 PRN IV ELEVATED HEART RATE Last a dministered on 10/18/18 01:09; Admin Dose 5 MG; Start 10/09/18 at 14:00 Diphenhydramine HCl (Benadryl Liquid Cup) 25 mg Q6 PRN GTB ITCHING Last administered on 10/22/18 20:25; Admin Dose 25 MG; Start 10/09/18 at 14:00 Duloxetine HCl (Cymbalta) 30 mg DAILY PO Last administered on 10/29/18 09:08; Admin Dose 30 MG; Start 10/10/18 at 09:00 Gabapentin (Neurontin Liquid) 400 mg Q8 GTB Last administered on 10/29/18 13:44; Admin Dose 400 MG; Start 10/09/18 at 15:30 Hydralazine HCl (Apresoline) 10 mg Q4H PRN IV ELEVATED BLOOD PRESSURE; Start 10/09/18 at 14:00 Hydroxychloroquine Sulfate (Plaquenil) 200 mg BID PO Last administered on 10/29/18 20:26; Admin Dose 200 MG; Start 10/09/18 at 21:00 Diagnostic Test (Pha) (Accu-Chek) 1 ea 02 XX Last administered on 10/29/18 02:35; Admin Dose 1 EA; Start 10/10/18 at 02:00 Insulin Aspart (Novolog Insulin Pen) NOVOLOG *CUSTOM* ALGORITHM Q6H SC Last administered on 10/29/18 20:36; Admin Dose 1 UNIT; Start 10/09/18 at 14:00 Lactobacillus Acidophilus (Florajen3 Capsule) 1 each BID GTB Last administered on 10/29/18 20:25; Admin Dose 1 EACH; Start 10/09/18 at 21:00 Lansoprazole (Prevacid) 30 mg BID@06,18 GTB Last administered on 10/29/18 17:42; Admin Dose 30 MG; Start 10/09/18 at 18:00 Levetiracetam (Keppra Liquid) 500 mg BID GTB Last administered on 10/29/18 20:25; Admin Dose 500 MG; Start 10/09/18 at 21:00 Magnesium Oxide (Mag-Ox 400) 400 mg BID GTB Last administered on 10/29/18 20:26; Admin Dose 400 MG; Start 10/09/18 at 21:00 Metoclopramide HCl (Reglan) 10 mg TID IV Last administered on 10/29/18 20:25; Admin Dose 10 MG; Start 10/09/18 at 21:00 Miconazole Nitrate (Miconazole 2% Cr) 1 applic BID TOP Last administered on 10/29/18 20:26; Admin Dose 1 APPLIC; Start 10/09/18 at 21:00 Miconazole Nitrate (Miconazole 2% Cr) 1 applic Q12 PRN TOP rash; Start 10/09/18 at 14:00 Ondansetron HCl (Zofran Inj) 4 mg Q4H PRN IV NAUSEA AND/OR VOMITING Last administered on 10/19/18at 16:37; Admin Dose 4 MG; Start 10/09/18 at 14:00 Polyethylene Glycol (Miralax) 17 gm DAILY PRN GTB CONSTIPATION; Start 10/09/18 at 14:00 Senna (Senokot) 2 tab Q8 PRN PO CONSTIPATION; Start 10/09/18 at 14:00 Trimethoprim/ Sulfamethoxazole (Bactrim Susp) 40 ml DAILY GTB Last administered on 10/29/18 09:06; Admin Dose 40 ML; Start 10/10/18 at 09:00 Zolpidem Tartrate (Ambien) 5 mg HS PRN PO INSOMNIA Last administered on 10/21/18 02:34; Admin Dose 5 MG; Start 10/09/18 at 14:00 Miscellaneous Information 1 ea NOTE XX ; Start 10/09/18 at 15:00 Glucose (Glutose) 15 gm Q15M PRN PO DECREASED GLUCOSE; Start 10/09/18 at 15:00 Glucose (Glutose) 22.5 gm Q15M PRN PO DECREASED GLUCOSE; Start 10/09/18 at 15:00 Dextrose (D50w Syringe) 25 ml Q15M PRN IV DECREASED GLUCOSE; Start 10/09/18 at 15:00 Dextrose (D50w Syringe) 50 ml Q15M PRN IV DECREASED GLUCOSE; Start 10/09/18 at 15:00 Glucagon (Glucagen) 1 mg Q15M PRN IM DECREASED GLUCOSE; Start 10/09/18 at 15:00 Glucose (Glutose) 15 gm Q15M PRN BUCCAL DECREASED GLUCOSE; Start 10/09/18 at 15:00 Sodium Chloride 500 ml @ 500 mls/hr Q1H PRN IV BLOOD PRESSURE SUPPORT Last administered on 10/10/18at 07:59; Admin Dose 500 MLS/HR; Start 10/09/18 at 19:30 Albuterol (Ventolin Hfa) 4 puff Q6H RESP THERAPY INH Last administered on 10/29/18 20:01; Admin Dose 4 PUFF; Start 10/10/18 at 02:00 Ipratropium [place] (Atrovent Hfa) 4 puff Q6H RESP THERAPY INH Last administered on 10/29/18 20:01; Admin Dose 4 PUFF; Start 10/10/18 at 02:00 Lorazepam (Ativan) 1 mg Q4H PRN GTB AGITATION/ANXIETY Last administered on 10/19/18 17:35; Admin Dose 1 MG; Start 10/14/18 at 13:00 Lisinopril (Zestril) 2.5 mg DAILY PO Last administered on 10/29/18 09:06; Admin Dose 2.5 MG; Start 10/15/18 at 09:00 Linagliptin (Tradjenta) 5 mg DAILY PO Last administered on 10/29/18 09:08; Admin Dose 5 MG; Start 10/16/18 at 10:30 Fentanyl (Duragesic 50 Mcg/Hr Patch) 1 patch Q72H TRANSDERM Last administered on 10/27/18 02:19; Admin Dose 1 PATCH; Start 10/17/18 at 20:30 Lorazepam (Ativan) 2 mg Q6H GTB Last administered on 10/29/18 20:25; Admin Dose 2 MG; Start 10/20/18 at 15:00 Quetiapine Fumarate (Seroquel) 100 mg BID GTB Last administered on 10/29/18 20:26; Admin Dose 100 MG; Start 10/21/18 at 21:00 Hydromorphone HCl (Dilaudid) 6 mg Q4H PRN PO MODERATE PAIN LEVEL 7-10 Last administered on 10/29/18 20:26; Admin Dose 6 MG; Start 10/21/18 at 22:00 Calcium Carbonate (Ca Carbonate) 1,250 mg QID GTB Last administered on 20:25; Admin Dose 1,250 MG; Start 10/24/18 at 13:00 Carvedilol (Coreg) 6.25 mg BID PO Last administered on 10/29/18 09:07; Admin Dose 6.25 MG; Start 10/27/18 at 21:00 Methylprednisolone Sodium Succinate (Solu-Medrol) 40 mg DAILY IV Last administered on 10/29/18 09:04; Admin Dose 40 MG; Start 10/28/18 at 09:00; Stop 10/30/18 at 09:01 Calcitriol (Rocaltrol) 1 mcg BID PO Last administered on 10/29/18 20:25; Admin Dose 1 MCG; Start 10/28/18 at 09:00 Sodium Chloride 1,000 ml @ 75 mls/hr [id number] IV Last administered on 10/29/18at 13:45; Admin Dose 75 MLS/HR; Start 10/28/18 at 10:00 Metoprolol Tartrate (Lopressor) 5 mg Q4H PRN IV HR>110 Hold SBP<100; Start 10/28/18 at 12:30 CATHERINE FISH NP Oct 29, 2018 21:35
[2018-10-29] MEDS: FENTAnyl PATCH 50 MCG/HR TRANSDERM SCH (21:43)
[2018-10-30] VITALS (36 sets, daily range): BP systolic 84–135; BP diastolic 53–93; PULSE 93–124; RESP 17–34
[2018-10-30] MEDS: ALBUTEROL HFA 8 GM INHALER INH SCH ×4 (01:23→19:52)
[2018-10-30] MEDS: IPRATROPIUM (HFA) 12.9 GM INHALER INH SCH ×4 (01:23→19:51)
[2018-10-30] MEDS: INSULIN ASPART [NOVOLOG] 3 ML PEN SC SCH ×4 (02:00→20:00)
[2018-10-30] MEDS: ACCU-CHEK XX SCH (02:19)
[2018-10-30] MEDS: LORAZEPAM 1 MG TAB GTB SCH ×4 (02:22→20:44)
[2018-10-30] MEDS: HYDROmorphONE 2 MG TAB PO PRN ×2 (02:28→13:39)
[2018-10-30] MEDS: SOD CHLORIDE 0.9% 1,000 ML IV SCH ×2 (03:26→15:29)
[2018-10-30] MEDS: GABAPENTIN (50 MG/ML PO SYG) GTB SCH ×3 (05:23→21:43)
[2018-10-30] MEDS: LANSOPRAZOLE 30 MG CAP GTB SCH ×2 (05:23→17:14)
[2018-10-30] MEDS: TRIMETHOPRIM/SULFAMETHOX (PO SYG) GTB SCH (08:46)
[2018-10-30] MEDS: BALSAM PERU/CASTOR OIL 60 GM TUBE TOP SCH ×2 (08:46→20:45)
[2018-10-30] MEDS: MICONAZOLE 2% 30 GM CR TOP SCH ×2 (08:46→20:45)
[2018-10-30] MEDS: METOCLOPRAMIDE 10 MG INJ IV SCH ×3 (08:47→20:43)
[2018-10-30] MEDS: CA CARBONATE (250 MG/ML) 5ML CUP GTB SCH ×4 (08:47→20:43)
[2018-10-30] MEDS: LEVETIRACETAM (100 MG/ML) 5ML CUP GTB SCH ×2 (08:47→20:44)
[2018-10-30] MEDS: METHYLPREDNISOLONE 40 MG INJ IV SCH (08:47)
[2018-10-30] MEDS: L ACIDOPHIL/B LACTIS/B LONGUM CAPSULE GTB SCH ×2 (08:49→20:43)
[2018-10-30] MEDS: DULOXETINE 30 MG CAP DR PO SCH (08:49)
[2018-10-30] MEDS: QUETIAPINE 100 MG TAB GTB SCH ×2 (08:49→20:43)
[2018-10-30] MEDS: CALCITRIOL 0.5 MCG CAPSULE PO SCH ×2 (08:50→20:45)
[2018-10-30] MEDS: HYDROXYCHLOROQUINE 200 MG TAB PO SCH ×2 (08:50→20:43)
[2018-10-30] MEDS: MAGNESIUM OXIDE 400 MG TAB GTB SCH ×2 (08:50→20:44)
[2018-10-30] MEDS: LINAGLIPTIN 5 MG TABLET PO SCH (08:51)
--- NOTE | 2018-10-30 08:59 | CONS ---
Consult Date/Type/Reason Admit Date/Time Oct 09, 2018 at 12:16 Initial Consult Date 10/09/18 Type of Consultation: Pulm/CC Requesting Provider: NOLA VIDAL MD Date/Time of Note DATE: 10/30/18 TIME: 08:57 Subjective No acute events- pt with ICU -still high oxygen lizabeth - stable sinus tach - will follow ROS: No fever, no chills, no nausea, no vomiting, no diarrhea/constipation No recent weight changes No chest pain, no PND, no orthopnea + anxiety, + SOB No dizziness, blurred vision No thirst, no heat or cold intolerance Objective Vitals Vital Signs Date Temp Pulse Resp B/P (MAP) Pulse Ox O2 O2 Flow FiO2 Time Delivery Rate 10/30/18 112 18 93/63 (73) 94 Mechanical 06:00 Ventilator 10/30/18 55 05:51 10/30/18 98.9 04:00 Intake and Output 10/29/18 10/29/18 10/30/18 1515:00 23:00 07:00 IntakeIntake Total 970 ml 970 ml 900 ml OutputOutput Total 150 ml 550 ml 800 ml BalanceBalance 820 ml 420 ml 100 ml Exam General: WN/WD/NAD, AOx 203 HEENT: Unicetric/atraumatic/EOMI (follow commands) NECK: trach Lymph: no lymphadenopathy HEART: regular with no S3, II/ systolic murmur at apex LUNGS: Coarse sounds ABD: soft, NT, ND, +BS : Intact Neuro: non focal SKIN: chronic changes EXT: trace edema Results/Medications Result Diagram: 10/30/18 0433 10/30/18 0433 Results 24 hrs Laboratory Tests Test 10/29/18 09:05 10/29/18 13:44 10/29/18 20:32 10/30/18 02:21 Bedside Glucose 87 136 161 96 Test 10/30/18 04:33 10/30/18 08:48 White Blood Count 24.1 H Red Blood Count 3.23 L Hemoglobin 9.4 L Hematocrit 31.3 L Mean Corpuscular 96.9 Volume Mean Corpuscular 29.1 Hemoglobin Mean Corpuscular 30.0 L Hemoglobin Concent Red Cell 18.6 H Distribution Width Platelet Count 257 Mean Platelet Volume 12.4 H Immature 4.500 H Granulocytes % Neutrophils % 80.1 H Lymphocytes % 4.0 L Monocytes % 8.3 Eosinophils % 2.6 Basophils % 0.5 Nucleated Red Blood 0.0 Cells % Immature 1.090 H Granulocytes # Neutrophils # 19.3 H Lymphocytes # 1.0 Monocytes # 2.0 H Eosinophils # 0.6 H Basophils # 0.1 Nucleated Red Blood 0.0 Cells # Sodium Level 136 Potassium Level 4.0 Chloride Level 101 Carbon Dioxide Level 31 Anion Gap 4 L Blood Urea Nitrogen 26 H Creatinine 0.32 L Est Glomerular > 60 Filtrat Rate mL/min Glucose Level 92 Calcium Level 7.6 L Total Bilirubin 0.1 L Direct Bilirubin 0.00 Indirect Bilirubin 0.1 Aspartate Amino 33 Transf (AST/SGOT) Alanine 40 Aminotransferase (AL T/SGPT) Alkaline Phosphatase 103 Total Protein 4.5 L Albumin 2.4 L Globulin 2.10 Albumin/Globulin 1.14 Ratio Bedside Glucose 93 Medications Current Medications Acetaminophen (Tylenol Liquid) 650 mg Q4H PRN GTB MILD PAIN(1-3)OR ELEVATED TEMP Last administered on 10/16/18at 07:52; Admin Dose 650 MG; Start 10/09/18 at 14:00 Al Hydrox/Mg Hydrox/Simethicone (Mag-Al Plus) 15 ml Q6H PRN PO GASTROINTESTINAL UPSET Last administered on 10/17/18at 13:18; Admin Dose 15 ML; Start 10/09/18 at 14:00 Eye Lubricant (Artificial Tears Oph) 1 drop Q6H PRN BOTH EYES DRY EYES; Start 10/09/18 at 14:00 Bisacodyl (Dulcolax Supp) 10 mg DAILY PRN [place] CONSTIPATION; Start 10/09/18 at 14:00 Clonidine (Catapres) 0.1 mg DAILY PRN GTB ELEVATED BLOOD PRESSURE; Start 10/09/18 at 14:00 Diltiazem HCl (Cardizem Iv) 5 mg Q4 PRN IV ELEVATED HEART RATE Last administered on 10/18/18at 01:09; Admin Dose 5 MG; Start 10/09/18 at 14:00 Diphenhydramine HCl (Benadryl Liquid Cup) 25 mg Q6 PRN GTB ITCHING Last administered on 10/22/18at 20:25; Admin Dose 25 MG; Start 10/09/18 at 14:00 Duloxetine HCl (Cymbalta) 30 mg DAILY PO Last administered on 10/30/18 08:49; Admin Dose 30 MG; Start 10/10/18 at 09:00 Gabapentin (Neurontin Liquid) 400 mg Q8 GTB Last administered on 10/30/18 05:23; Admin Dose 400 MG; Start 10/09/18 at 15:30 Hydralazine HCl (Apresoline) 10 mg Q4H PRN IV ELEVATED BLOOD PRESSURE; Start 10/09/18 at 14:00 Hydroxychloroquine Sulfate (Plaquenil) 200 mg BID PO Last administered on 10/30/18 08:50; Admin Dose 200 MG; Start 10/09/18 at 21:00 Diagnostic Test (Pha) (Accu-Chek) 1 ea 02 XX Last administered on 10/30/18 02:19; Admin Dose 1 EA; Start 10/10/18 at 02:00 Insulin Aspart (Novolog Insulin Pen) NOVOLOG *CUSTOM* ALGORITHM Q6H SC Last administered on 10/29/18 20:36; Admin Dose 1 UNIT; Start 10/09/18 at 14:00 Lactobacillus Acidophilus (Florajen3 Capsule) 1 each BID GTB Last administered on 10/30/18 08:49; Admin Dose 1 EACH; Start 10/09/18 at 21:00 Lansoprazole (Prevacid) 30 mg BID@,18 GTB Last administered on 10/30/18 05:23; Admin Dose 30 MG; Start 10/09/18 at 18:00 Levetiracetam (Keppra Liquid) 500 mg BID GTB Last administered on 10/30/18 08:47; Admin Dose 500 MG; Start 10/09/18 at 21:00 Magnesium Oxide (Mag-Ox 400) 400 mg BID GTB Last administered on 10/30/18 08:50; Admin Dose 400 MG; Start 10/09/18 at 21:00 Metoclopramide HCl (Reglan) 10 mg TID IV Last administered on 10/30/18 08:47; Admin Dose 10 MG; Start 10/09/18 at 21:00 Miconazole Nitrate (Miconazole 2% Cr) 1 applic BID TOP Last administered on 10/30/18 08:46; Admin Dose 1 APPLIC; Start 10/09/18 at 21:00 Miconazole Nitrate (Miconazole 2% Cr) 1 applic Q12 PRN TOP rash; Start 10/09/18 at 14:00 Ondansetron HCl (Zofran Inj) 4 mg Q4H PRN IV NAUSEA AND/OR VOMITING Last administered on 10/19/18at 16:37; Admin Dose 4 MG; Start 10/09/18 at 14:00 Polyethylene Glycol (Miralax) 17 gm DAILY PRN GTB CONSTIPATION; Start 10/09/18 at 14:00 Senna (Senokot) 2 tab Q8 PRN PO CONSTIPATION; Start 10/09/18 at 14:00 Trimethoprim/ Sulfamethoxazole (Bactrim Susp) 40 ml DAILY GTB Last administered on 10/30/18at 08:46; Admin Dose 40 ML; Start 10/10/18 at 09:00 Zolpidem Tartrate (Ambien) 5 mg HS PRN PO INSOMNIA Last administered on 10/21/18at 02:34; Admin Dose 5 MG; Start 10/09/18 at 14:00 Miscellaneous Information 1 ea NOTE XX ; Start 10/09/18 at 15:00 Glucose (Glutose) 15 gm Q15M PRN PO DECREASED GLUCOSE; Start 10/09/18 at 15:00 Glucose (Glutose) 22.5 gm Q15M PRN PO DECREASED GLUCOSE; Start 10/09/18 at 15:00 Dextrose (D50w Syringe) 25 ml Q15M PRN IV DECREASED GLUCOSE; Start 10/09/18 at 15:00 Dextrose (D50w Syringe) 50 ml Q15M PRN IV DECREASED GLUCOSE; Start 10/09/18 at 15:00 Glucagon (Glucagen) 1 mg Q15M PRN IM DECREASED GLUCOSE; Start 10/09/18 at 15:00 Glucose (Glutose) 15 gm Q15M PRN BUCCAL DECREASED GLUCOSE; Start 10/09/18 at 15:00 Sodium Chloride 500 ml @ 500 mls/hr Q1H PRN IV BLOOD PRESSURE SUPPORT Last administered on 10/10/18at 07:59; Admin Dose 500 MLS/HR; Start 10/09/18 at 19:30 Albuterol (Ventolin Hfa) 4 puff Q6H RESP THERAPY INH Last administered on 10/30/18at 01:23; Admin Dose 4 PUFF; Start 10/10/18 at 02:00 Ipratropium [place] (Atrovent Hfa) 4 puff Q6H RESP THERAPY INH Last administered on 10/30/18 01:23; Admin Dose 4 PUFF; Start 10/10/18 at 02:00 Lorazepam (Ativan) 1 mg Q4H PRN GTB AGITATION/ANXIETY Last administered on 10/19/18 17:35; Admin Dose 1 MG; Start 10/14/18 at 13:00 Lisinopril (Zestril) 2.5 mg DAILY PO Last administered on 10/29/18 09:06; Admin Dose 2.5 MG; Start 10/15/18 at 09:00 Linagliptin (Tradjenta) 5 mg DAILY PO Last administered on 10/30/18 08:51; Admin Dose 5 MG; Start 10/16/18 at 10:30 Fentanyl (Duragesic 50 Mcg/Hr Patch) 1 patch Q72H TRANSDERM Last administered on 10/29/18 21:43; Admin Dose 1 PATCH; Start 10/17/18 at 20:30 Lorazepam (Ativan) 2 mg Q6H GTB Last administered on 10/30/18 08:53; Admin Dose 2 MG; Start 10/20/18 at 15:00 Quetiapine Fumarate (Seroquel) 100 mg BID GTB Last administered on 10/30/18 08:49; Admin Dose 100 MG; Start 10/21/18 at 21:00 Hydromorphone HCl (Dilaudid) 6 mg Q4H PRN PO MODERATE PAIN LEVEL 7-10 Last administered on 10/30/18 02:28; Admin Dose 6 MG; Start 10/21/18 at 22:00 Calcium Carbonate (Ca Carbonate) 1,250 mg QID GTB Last administered on 10/30/18 08:47; Admin Dose 1,250 MG; Start 10/24/18 at 13:00 Carvedilol (Coreg) 6.25 mg BID PO Last administered on 10/29/18 09:07; Admin Dose 6.25 MG; Start 10/27/18 at 21:00 Methylprednisolone Sodium Succinate (Solu-Medrol) 40 mg DAILY IV Last administered on 10/30/18 08:47; Admin Dose 40 MG; Start 10/28/18 at 09:00; Stop 10/30/18 at 09:01 Calcitriol (Rocaltrol) 1 mcg BID PO Last administered on 10/30/18at 08:50; Admin Dose 1 MCG; Start 10/28/18 at 09:00 Sodium Chloride 1,000 ml @ 75 mls/hr [id number] IV Last administered on 10/30/18at 03:26; Admin Dose 75 MLS/HR; Start 10/28/18 at 10:00 Metoprolol Tartrate (Lopressor) 5 mg Q4H PRN IV HR>110 Hold SBP<100; Start 10/28/18 at 12:30 Assessment/Plan Hospital Course (Demo Recall) 1. Tachycardia at this time in the setting of fevers and respiratory distress, most consistent with sinus tachycardia likely driving this process - better now, con't supportive Rx and pain management- con't anxiety Rx. Con;t supportive RX. Rate controlled at rest. Keep euvolemic as tolerated. 2. Hypertension with borderline hypotension at this time. -still borderline Hotn - no focal symptoms. Will monitor now. In good range. STABLE. 3. Abnormal electrocardiogram at baseline.Sinus tach. OK to hydrate. 4. Chronic respiratory failure, status post tracheostomy.-weaning vent support - con't resp Rx. Con;t resp Rx. 5. Dysphagia, status post G-tube. 6. [facility] NO [facility]. 7. Renal insufficiency, on steroids- Cr 0.32 now. Stable. Good urine output now. Good urine output. Resolved. 8. Chronic obstructive pulmonary disease - con't resp Rx per pulmonary team. On vent. 9. Rheumatoid arthritis. 10. Chronic kidney disease- better now. 11. Diabetes mellitus- on meds. VANESSA COOPER MD Oct 30, 2018 08:59
[2018-10-30] MEDS: LISINOPRIL 5 MG TAB PO SCH (09:19)
--- NOTE | 2018-10-30 10:29 | PN ---
Date/Time of Note Date/Time of Note DATE: 10/30/18 TIME: 10:29 Assessment/Plan VTE Prophylaxis Risk score (from Ns)>0 risk: 7 SCD applied (from Ns): Yes Pharmacological prophylaxis: other Lines/Catheters IV Catheter Type (from Nrsg): Mid Line Urinary Cath still in place: No Assessment/Plan Hospital Course brian follow up SUBJECTIVE: The patient is stable on full ventilatory support. No other acute events noted. good uop noted currently on ivf OBJECTIVE: HEENT: Head is normocephalic. NECK: Supple. HEART: Regular rate. LUNGS: Show diminished breath sounds at the base. + crackles ABDOMEN: Soft, nontender to palpation without rebound or guarding. EXTREMITIES: Negative for clubbing, cyanosis, no edema. DERMATOLOGIC: No rashes. MUSCULOSKELETAL: No joint effusion. NEUROLOGIC: No change in exam. MEDICATIONS: The patient's medications have been reviewed. I/P 1. Nonoliguric acute kidney injury. Etiology is secondary to hemodynamics. Renal function is improved. will dc ivf. will also dc epogen. ok to continue lisinopril 2. Hyponatremia. will change free water flushes with peg to NS. no indication for 3 percent saline 4. Hypomagnesemia. Continue to monitor and replete. 5. Mineral bone disorder, monitor calcium and phosphorus levels. 6. Ventilator-dependent respiratory failure. Vent settings and ABG was reviewed. Continue to monitor. 7. Adrenal insufficiency. Continue Cortef. 8. Anemia. Continue to monitor hemoglobin and hematocrit levels. 9. Dysphagia. Continue tube feeding. 10. Sepsis secondary to pneumonia. The patient is completing antibiotic course. 11. Hypotension. The patient is status post IV fluids. We will continue to monitor. We will give IV fluids as needed. 12. Tachyarrhythmia. Continue current treatment plan. 13. Seizure disorder. Continue medical management. 14. Anxiety disorder. Continue anxiolytics. Result Diagram: 10/30/18 0433 10/30/18 0433 Results 24hrs Laboratory Tests Test 10/29/18 13:44 10/29/18 20:32 10/30/18 02:21 10/30/18 04:33 Bedside Glucose 136 161 96 White Blood Count 24.1 H Red Blood Count 3.23 L Hemoglobin 9.4 L Hematocrit 31.3 L Mean Corpuscular 96.9 Volume Mean Corpuscular 29.1 Hemoglobin Mean Corpuscular 30.0 L Hemoglobin Concent Red Cell 18.6 H Distribution Width Platelet Count 257 Mean Platelet Volume 12.4 H Immature 4.500 H Granulocytes % Neutrophils % 80.1 H Lymphocytes % 4.0 L Monocytes % 8.3 Eosinophils % 2.6 Basophils % 0.5 Nucleated Red Blood 0.0 Cells % Immature 1.090 H Granulocytes # Neutrophils # 19.3 H Lymphocytes # 1.0 Monocytes # 2.0 H Eosinophils # 0.6 H Basophils # 0.1 Nucleated Red Blood 0.0 Cells # Sodium Level 136 Potassium Level 4.0 Chloride Level 101 Carbon Dioxide Level 31 Anion Gap 4 L Blood Urea Nitrogen 26 H Creatinine 0.32 L Est Glomerular > 60 Filtrat Rate mL/min Glucose Level 92 Calcium Level 7.6 L Total Bilirubin 0.1 L Direct Bilirubin 0.00 Indirect Bilirubin 0.1 Aspartate Amino 33 Transf (AST/SGOT) Alanine 40 Aminotransferase (AL T/SGPT) Alkaline Phosphatase 103 Total Protein 4.5 L Albumin 2.4 L Globulin 2.10 Albumin/Globulin 1.14 Ratio Test 10/30/18 08:48 Bedside Glucose 93 Exam/Review of Systems Exam Vitals Vital Signs Date Temp Pulse Resp B/P (MAP) Pulse Ox O2 O2 Flow FiO2 Time Delivery Rate 10/30/18 112 18 93/63 (73) 94 Mechanical 06:00 Ventilator 10/30/18 55 05:51 10/30/18 98.9 04:00 Intake and Output 10/29/18 10/29/18 10/30/18 1515:00 23:00 07:00 IntakeIntake Total 970 ml 970 ml 900 ml OutputOutput Total 150 ml 550 ml 800 ml BalanceBalance 820 ml 420 ml 100 ml Results Results 24hrs Laboratory Tests Test 10/29/18 13:44 10/29/18 20:32 10/30/18 02:21 10/30/18 04:33 Bedside Glucose 136 161 96 White Blood Count 24.1 H Red Blood Count 3.23 L Hemoglobin 9.4 L Hematocrit 31.3 L Mean Corpuscular 96.9 Volume Mean Corpuscular 29.1 Hemoglobin Mean Corpuscular 30.0 L Hemoglobin Concent Red Cell 18.6 H Distribution Width Platelet Count 257 Mean Platelet Volume 12.4 H Immature 4.500 H Granulocytes % Neutrophils % 80.1 H Lymphocytes % 4.0 L Monocytes % 8.3 Eosinophils % 2.6 Basophils % 0.5 Nucleated Red Blood 0.0 Cells % Immature 1.090 H Granulocytes # Neutrophils # 19.3 H Lymphocytes # 1.0 Monocytes # 2.0 H Eosinophils # 0.6 H Basophils # 0.1 Nucleated Red Blood 0.0 Cells # Sodium Level 136 Potassium Level 4.0 Chloride Level 101 Carbon Dioxide Level 31 Anion Gap 4 L Blood Urea Nitrogen 26 H Creatinine 0.32 L Est Glomerular > 60 Filtrat Rate mL/min Glucose Level 92 Calcium Level 7.6 L Total Bilirubin 0.1 L Direct Bilirubin 0.00 Indirect Bilirubin 0.1 Aspartate Amino 33 Transf (AST/SGOT) Alanine 40 Aminotransferase (AL T/SGPT) Alkaline Phosphatase 103 Total Protein 4.5 L Albumin 2.4 L Globulin 2.10 Albumin/Globulin 1.14 Ratio Test 10/30/18 08:48 Bedside Glucose 93 Medications Medication Current Medications Acetaminophen (Tylenol Liquid) 650 mg Q4H PRN GTB MILD PAIN(1-3)OR ELEVATED TEMP Last administered on 10/16/18at 07:52; Admin Dose 650 MG; Start 10/09/18 at 14:00 Al Hydrox/Mg Hydrox/Simethicone (Mag-Al Plus) 15 ml Q6H PRN PO GASTROINTESTINAL UPSET Last administered on 10/17/18at 13:18; Admin Dose 15 ML; Start 10/09/18 at 14:00 Eye Lubricant (Artificial Tears Oph) 1 drop Q6H PRN BOTH EYES DRY EYES; Start 10/09/18 at 14:00 Bisacodyl (Dulcolax Supp) 10 mg DAILY PRN [place] CONSTIPATION; Start 10/09/18 at 14:00 Clonidine (Catapres) 0.1 mg DAILY PRN GTB ELEVATED BLOOD PRESSURE; Start 10/09/18 at 14:00 Diltiazem HCl (Cardizem Iv) 5 mg Q4 PRN IV ELEVATED HEART RATE Last administered on 10/18/18at 01:09; Admin Dose 5 MG; Start 10/09/18 at 14:00 Diphenhydramine HCl (Benadryl Liquid Cup) 25 mg Q6 PRN GTB ITCHING Last administered on 10/22/18at 20:25; Admin Dose 25 MG; Start 10/09/18 at 14:00 Duloxetine HCl (Cymbalta) 30 mg DAILY PO Last administered on 10/30/18 08:49; Admin Dose 30 MG; Start 10/10/18 at 09:00 Gabapentin (Neurontin Liquid) 400 mg Q8 GTB Last administered on 10/30/18 05:23; Admin Dose 400 MG; Start 10/09/18 at 15:30 Hydralazine HCl (Apresoline) 10 mg Q4H PRN IV ELEVATED BLOOD PRESSURE; Start 10/09/18 at 14:00 Hydroxychloroquine Sulfate (Plaquenil) 200 mg BID PO Last administered on 10/30/18 08:50; Admin Dose 200 MG; Start 10/09/18 at 21:00 Diagnostic Test (Pha) (Accu-Chek) 1 ea 02 XX Last administered on 10/30/18 02:19; Admin Dose 1 EA; Start 10/10/18 at 02:00 Insulin Aspart (Novolog Insulin Pen) NOVOLOG *CUSTOM* ALGORITHM Q6H SC Last administered on 10/29/18 20:36; Admin Dose 1 UNIT; Start 10/09/18 at 14:00 Lactobacillus Acidophilus (Florajen3 Capsule) 1 each BID GTB Last administered on 10/30/18 08:49; Admin Dose 1 EACH; Start 10/09/18 at 21:00 Lansoprazole (Prevacid) 30 mg BID@06,18 GTB Last administered on 10/30/18 05 :23; Admin Dose 30 MG; Start 10/09/18 at 18:00 Levetiracetam (Keppra Liquid) 500 mg BID GTB Last administered on 10/30/18 08:47; Admin Dose 500 MG; Start 10/09/18 at 21:00 Magnesium Oxide (Mag-Ox 400) 400 mg BID GTB Last administered on 10/30/18 08:50; Admin Dose 400 MG; Start 10/09/18 at 21:00 Metoclopramide HCl (Reglan) 10 mg TID IV Last administered on 10/30/18 08:47; Admin Dose 10 MG; Start 10/09/18 at 21:00 Miconazole Nitrate (Miconazole 2% Cr) 1 applic BID TOP Last administered on 08:46; Admin Dose 1 APPLIC; Start 10/09/18 at 21:00 Miconazole Nitrate (Miconazole 2% Cr) 1 applic Q12 PRN TOP rash; Start 10/09/18 at 14:00 Ondansetron HCl (Zofran Inj) 4 mg Q4H PRN IV NAUSEA AND/OR VOMITING Last administered on 10/19/18at 16:37; Admin Dose 4 MG; Start 10/09/18 at 14:00 Polyethylene Glycol (Miralax) 17 gm DAILY PRN GTB CONSTIPATION; Start 10/09/18 at 14:00 Senna (Senokot) 2 tab Q8 PRN PO CONSTIPATION; Start 10/09/18 at 14:00 Trimethoprim/ Sulfamethoxazole (Bactrim Susp) 40 ml DAILY GTB Last administered on 10/30/18at 08:46; Admin Dose 40 ML; Start 10/10/18 at 09:00 Zolpidem Tartrate (Ambien) 5 mg HS PRN PO INSOMNIA Last administered on 10/21/18at 02:34; Admin Dose 5 MG; Start 10/09/18 at 14:00 Miscellaneous Information 1 ea NOTE XX ; Start 10/09/18 at 15:00 Glucose (Glutose) 15 gm Q15M PRN PO DECREASED GLUCOSE; Start 10/09/18 at 15:00 Glucose (Glutose) 22.5 gm Q15M PRN PO DECREASED GLUCOSE; Start 10/09/18 at 15:00 Dextrose (D50w Syringe) 25 ml Q15M PRN IV DECREASED GLUCOSE; Start 10/09/18 at 15:00 Dextrose (D50w Syringe) 50 ml Q15M PRN IV DECREASED GLUCOSE; Start 10/09/18 at 15:00 Glucagon (Glucagen) 1 mg Q15M PRN IM DECREASED GLUCOSE; Start 10/09/18 at 15:00 Glucose (Glutose) 15 gm Q15M PRN BUCCAL DECREASED GLUCOSE; Start 10/09/18 at 15:00 Sodium Chloride 500 ml @ 500 mls/hr Q1H PRN IV BLOOD PRESSURE SUPPORT Last administered on 10/10/18at 07:59; Admin Dose 500 MLS/HR; Start 10/09/18 at 19:30 Albuterol (Ventolin Hfa) 4 puff Q6H RESP THERAPY INH Last administered on 10/30/18at 01:23; Admin Dose 4 PUFF; Start 10/10/18 at 02:00 Ipratropium [place] (Atrovent Hfa) 4 puff Q6H RESP THERAPY INH Last administered on 10/30/18 01:23; Admin Dose 4 PUFF; Start 10/10/18 at 02:00 Lorazepam (Ativan) 1 mg Q4H PRN GTB AGITATION/ANXIETY Last administered on 10/19/18 17:35; Admin Dose 1 MG; Start 10/14/18 at 13:00 Lisinopril (Zestril) 2.5 mg DAILY PO Last administered on 10/30/18 09:19; Admin Dose 2.5 MG; Start 10/15/18 at 09:00 Linagliptin (Tradjenta) 5 mg DAILY PO Last administered on 10/30/18 08:51; Admin Dose 5 MG; Start 10/16/18 at 10:30 Fentanyl (Duragesic 50 Mcg/Hr Patch) 1 patch Q72H TRANSDERM Last administered on 10/29/18 21:43; Admin Dose 1 PATCH; Start 10/17/18 at 20:30 Lorazepam (Ativan) 2 mg Q6H GTB Last administered on 10/30/18 08:53; Admin Dose 2 MG; Start 10/20/18 at 15:00 Quetiapine Fumarate (Seroquel) 100 mg BID GTB Last administered on 10/30/18 08:49; Admin Dose 100 MG; Start 10/21/18 at 21:00 Hydromorphone HCl (Dilaudid) 6 mg Q4H PRN PO MODERATE PAIN LEVEL 7-10 Last administered on 10/30/18 02:28; Admin Dose 6 MG; Start 10/21/18 at 22:00 Calcium Carbonate (Ca Carbonate) 1,250 mg QID GTB Last administered on 10/30/18 08:47; Admin Dose 1,250 MG; Start 10/24/18 at 13:00 Carvedilol (Coreg) 6.25 mg BID PO Last administered on 10/30/18 09:19; Admin Dose 6.25 MG; Start 10/27/18 at 21:00 Calcitriol (Rocaltrol) 1 mcg BID PO Last administered on 10/30/18 08:50; Admin Dose 1 MCG; Start 10/28/18 at 09:00 Sodium Chloride 1,000 ml @ 75 mls/hr [id number] IV Last administered on 10/30/18at 03:26; Admin Dose 75 MLS/HR; Start 10/28/18 at 10:00 Metoprolol Tartrate (Lopressor) 5 mg Q4H PRN IV HR>110 Hold SBP<100; Start 10/28/18 at 12:30 ELLIE QUICK DO Oct 30, 2018 10:29
--- NOTE | 2018-10-30 10:32 | CONS ---
Assessment/Plan Assessment/Plan Hospital Course (Demo Recall) IAssessment/Plan (Daily) Interval History- No acute events overnight, tolerating tube feeds well at 40 ml/hr, no residual, rectal tube, FIO2 of 55%, Neg AFB sputum x 3. Off airborne precautions, WBC slightly elevated today-24.1 from 22.7 1. Respiratory failure secondary to pneumonia versus interstitial pneumonitis from rheumatoid arthritis versus mild aspiration. -on Bactrim 2. Severe rheumatoid arthritis. 3. Quadriplegia. 4. Adrenal insufficiency. 5. Gastroparesis. -Reglan, denies nausea 6. Hypothyroidism. 7. Chronic pain syndrome. 8. Hypertension. 9. Diarrhea -VRE in stool which is likely colonized -FOB neg -likely due to tube feeds 10. Leukocytosis secondary to steroids 11.ARDS 12. Anxiety -on PO ativan Swallow eval: Impression: Oropharyngeal dysphagia associated with reduced oropharyngeal strength/coordination, delayed timing of swallowing and reduced coordination of breath with swallow safety impacting swallow safety. Pt is not safe to initiate p.o intake and is at high risk of aspiration. Recommendation: 1. Initiate dysphagia therapy 3-5x per week for 1-2 weeks 2. Keep NPO+PEG tube feeds for primary means of nutrition/hydration/medication delivery 3. Anticipate need for in-line PMV evaluation one respiratory status improves and is stabilized 4. ongoing assessment and BOT and oropharyngeal strengthening exercises, aswell as pt/family education and counseling 5. Anticipate need for MBSS prior to initiation of p.o intake PLAN: ID recommendations. Patient is on Bactrim Continue present care Nothing by mouth per swallow eval results Continue with tube feeds check residuals q 4 hours Continue Reglan. Aspiration precautions. So far there is no evidence of aspiration. If anytime there is evidence of aspiration will convert G-tube to J-tube Vent support CBC, CMP in am Patient examined and plan of care discussed with Dr Minaya. Consultation Date/Type/Reason Admit Date/Time Oct 09, 2018 at 12:16 Initial Consult Date 10/12/18 Requesting Provider: NOLA VIDAL MD Date/Time of Note DATE: 10/30/18 TIME: 10:28 Exam/Review of Systems Exam Vitals Vital Signs Date Temp Pulse Resp B/P (MAP) Pulse Ox O2 O2 Flow FiO2 Time Delivery Rate 10/30/18 112 18 93/63 (73) 94 Mechanical 06:00 Ventilator 10/30/18 55 05:51 10/30/18 98.9 04:00 Intake and Output 10/29/18 10/29/18 10/30/18 1515:00 23:00 07:00 IntakeIntake Total 970 ml 970 ml 900 ml OutputOutput Total 150 ml 550 ml 800 ml BalanceBalance 820 ml 420 ml 100 ml Constitutional: alert, other (on vent) Psych: no complaints Head: normocephalic, atraumatic Eyes: nl conjunctiva Neck: supple, other (trach) Respiratory: clear to auscultation Cardiovascular: regular rate and rhythm Gastrointestinal: soft, non-tender, other (tolerating tube feeds) Musculoskeletal: nl extremities to inspection Extremities: normal pulses Results Result Diagram: 10/30/18 0433 10/30/18 0433 Results 24hrs Laboratory Tests Test 10/29/18 13:44 10/29/18 20:32 10/30/18 02:21 10/30/18 04:33 Bedside Glucose 136 161 96 White Blood Count 24.1 H Red Blood Count 3.23 L Hemoglobin 9.4 L Hematocrit 31.3 L Mean Corpuscular 96.9 Volume Mean Corpuscular 29.1 Hemoglobin Mean Corpuscular 30.0 L Hemoglobin Concent Red Cell 18.6 H Distribution Width Platelet Count 257 Mean Platelet Volume 12.4 H Immature 4.500 H Granulocytes % Neutrophils % 80.1 H Lymphocytes % 4.0 L Monocytes % 8.3 Eosinophils % 2.6 Basophils % 0.5 Nucleated Red Blood 0.0 Cells % Immature 1.090 H Granulocytes # Neutrophils # 19.3 H Lymphocytes # 1.0 Monocytes # 2.0 H Eosinophils # 0.6 H Basophils # 0.1 Nucleated Red Blood 0.0 Cells # Sodium Level 136 Potassium Level 4.0 Chloride Level 101 Carbon Dioxide Level 31 Anion Gap 4 L Blood Urea Nitrogen 26 H Creatinine 0.32 L Est Glomerular > 60 Filtrat Rate mL/min Glucose Level 92 Calcium Level 7.6 L Total Bilirubin 0.1 L Direct Bilirubin 0.00 Indirect Bilirubin 0.1 Aspartate Amino 33 Transf (AST/SGOT) Alanine 40 Aminotransferase (AL T/SGPT) Alkaline Phosphatase 103 Total Protein 4.5 L Albumin 2.4 L Globulin 2.10 Albumin/Globulin 1.14 Ratio Test 10/30/18 08:48 Bedside Glucose 93 Medications Medication Current Medications Acetaminophen (Tylenol Liquid) 650 mg Q4H PRN GTB MILD PAIN(1-3)OR ELEVATED TEMP Last administered on 10/16/18 07:52; Admin Dose 650 MG; Start 10/09/18 at 14:00 Al Hydrox/Mg Hydrox/Simethicone (Mag-Al Plus) 15 ml Q6H PRN PO GASTROINTESTINAL UPSET Last administered on 10/17/18 13:18; Admin Dose 15 ML; Start 10/09/18 at 14:00 Eye Lubricant (Artificial Tears Oph) 1 drop Q6H PRN BOTH EYES DRY EYES; Start 10/09/18 at 14:00 Bisacodyl (Dulcolax Supp) 10 mg DAILY PRN [place] CONSTIPATION; Start 10/09/18 at 14:00 Clonidine (Catapres) 0.1 mg DAILY PRN GTB ELEVATED BLOOD PRESSURE; Start 10/09/18 at 14:00 Diltiazem HCl (Cardizem Iv) 5 mg Q4 PRN IV ELEVATED HEART RATE Last administered on 10/18/18 01:09; Admin Dose 5 MG; Start 10/09/18 at 14:00 Diphenhydramine HCl (Benadryl Liquid Cup) 25 mg Q6 PRN GTB ITCHING Last administered on 10/22/18 20:25; Admin Dose 25 MG; Start 10/09/18 at 14:00 Duloxetine HCl (Cymbalta) 30 mg DAILY PO Last administered on 10/30/18 08:49; Admin Dose 30 MG; Start 10/10/18 at 09:00 Gabapentin (Neurontin Liquid) 400 mg Q8 GTB Last administered on 10/30/18 05:23; Admin Dose 400 MG; Start 10/09/18 at 15:30 Hydralazine HCl (Apresoline) 10 mg Q4H PRN IV ELEVATED BLOOD PRESSURE; Start 10/09/18 at 14:00 Hydroxychloroquine Sulfate (Plaquenil) 200 mg BID PO Last administered on 10/30/18 08:50; Admin Dose 200 MG; Start 10/09/18 at 21:00 Diagnostic Test (Pha) (Accu-Chek) 1 ea 02 XX Last administered on 10/30/18at 02:19; Admin Dose 1 EA; Start 10/10/18 at 02:00 Insulin Aspart (Novolog Insulin Pen) NOVOLOG *CUSTOM* ALGORITHM Q6H SC Last administered on 10/29/18 20:36; Admin Dose 1 UNIT; Start 10/09/18 at 14:00 Lactobacillus Acidophilus (Florajen3 Capsule) 1 each BID GTB Last administered on 10/30/18 08:49; Admin Dose 1 EACH; Start 10/09/18 at 21:00 Lansoprazole (Prevacid) 30 mg BID@,18 GTB Last administered on 10/30/18 05:23; Admin Dose 30 MG; Start 10/09/18 at 18:00 Levetiracetam (Keppra Liquid) 500 mg BID GTB Last administered on 10/30/18 08:47; Admin Dose 500 MG; Start 10/09/18 at 21:00 Magnesium Oxide (Mag-Ox 400) 400 mg BID GTB Last administered on 10/30/18 08:50; Admin Dose 400 MG; Start 10/09/18 at 21:00 Metoclopramide HCl (Reglan) 10 mg TID IV Last administered on 10/30/18 08:47; Admin Dose 10 MG; Start 10/09/18 at 21:00 Miconazole Nitrate (Miconazole 2% Cr) 1 applic BID TOP Last administered on 10/30/18 08:46; Admin Dose 1 APPLIC; Start 10/09/18 at 21:00 Miconazole Nitrate (Miconazole 2% Cr) 1 applic Q12 PRN TOP rash; Start 10/09/18 at 14:00 Ondansetron HCl (Zofran Inj) 4 mg Q4H PRN IV NAUSEA AND/OR VOMITING Last administered on 10/19/18 16:37; Admin Dose 4 MG; Start 10/09/18 at 14:00 Polyethylene Glycol (Miralax) 17 gm DAILY PRN GTB CONSTIPATION; Start 10/09/18 at 14:00 Senna (Senokot) 2 tab Q8 PRN PO CONSTIPATION; Start 10/09/18 at 14:00 Trimethoprim/ Sulfamethoxazole (Bactrim Susp) 40 ml DAILY GTB Last administered on 10/30/18 08:46; Admin Dose 40 ML; Start 10/10/18 at 09:00 Zolpidem Tartrate (Ambien) 5 mg HS PRN PO INSOMNIA Last administered on 10/21/18at 02:34; Admin Dose 5 MG; Start 10/09/18 at 14:00 Miscellaneous Information 1 ea NOTE XX ; Start 10/09/18 at 15:00 Glucose (Glutose) 15 gm Q15M PRN PO DECREASED GLUCOSE; Start 10/09/18 at 15:00 Glucose (Glutose) 22.5 gm Q15M PRN PO DECREASED GLUCOSE; Start 10/09/18 at 15:00 Dextrose (D50w Syringe) 25 ml Q15M PRN IV DECREASED GLUCOSE; Start 10/09/18 at 15:00 Dextrose (D50w Syringe) 50 ml Q15M PRN IV DECREASED GLUCOSE; Start 10/09/18 at 15:00 Glucagon (Glucagen) 1 mg Q15M PRN IM DECREASED GLUCOSE; Start 10/09/18 at 15:00 Glucose (Glutose) 15 gm Q15M PRN BUCCAL DECREASED GLUCOSE; Start 10/09/18 at 15:00 Sodium Chloride 500 ml @ 500 mls/hr Q1H PRN IV BLOOD PRESSURE SUPPORT Last administered on 10/10/18at 07:59; Admin Dose 500 MLS/HR; Start 10/09/18 at 19:30 Albuterol (Ventolin Hfa) 4 puff Q6H RESP THERAPY INH Last administered on 10/30/18at 01:23; Admin Dose 4 PUFF; Start 10/10/18 at 02:00 Ipratropium [place] (Atrovent Hfa) 4 puff Q6H RESP THERAPY INH Last administered on 10/30/18at 01:23; Admin Dose 4 PUFF; Start 10/10/18 at 02:00 Lorazepam (Ativan) 1 mg Q4H PRN GTB AGITATION/ANXIETY Last administered on 10/19/18at 17:35; Admin Dose 1 MG; Start 10/14/18 at 13:00 Lisinopril (Zestril) 2.5 mg DAILY PO Last administered on 10/30/18at 09:19; Admin Dose 2.5 MG; Start 10/15/18 at 09:00 Linagliptin (Tradjenta) 5 mg DAILY PO Last administered on 10/30/18at 08:51; Admin Dose 5 MG; Start 10/16/18 at 10:30 Fentanyl (Duragesic 50 Mcg/Hr Patch) 1 patch Q72H TRANSDERM Last administered on 10/29/18 21:43; Admin Dose 1 PATCH; Start 10/17/18 at 20:30 Lorazepam (Ativan) 2 mg Q6H GTB Last administered on 10/30/18 08:53; Admin Dose 2 MG; Start 10/20/18 at 15:00 Quetiapine Fumarate (Seroquel) 100 mg BID GTB Last administered on 10/30/18 08:49; Admin Dose 100 MG; Start 10/21/18 at 21:00 Hydromorphone HCl (Dilaudid) 6 mg Q4H PRN PO MODERATE PAIN LEVEL 7-10 Last administered on 10/30/18 02:28; Admin Dose 6 MG; Start 10/21/18 at 22:00 Calcium Carbonate (Ca Carbonate) 1,250 mg QID GTB Last administered on 10/30/18 08:47; Admin Dose 1,250 MG; Start 10/24/18 at 13:00 Carvedilol (Coreg) 6.25 mg BID PO Last administered on 10/30/18 09:19; Admin Dose 6.25 MG; Start 10/27/18 at 21:00 Calcitriol (Rocaltrol) 1 mcg BID PO Last administered on 10/30/18 08:50; Admin Dose 1 MCG; Start 10/28/18 at 09:00 Sodium Chloride 1,000 ml @ 75 mls/hr [id number] IV Last administered on 10/30/18 03:26; Admin Dose 75 MLS/HR; Start 10/28/18 at 10:00 Metoprolol Tartrate (Lopressor) 5 mg Q4H PRN IV HR>110 Hold SBP<100; Start 10/28/18 at 12:30 CLAU MORRISSEY NP Oct 30, 2018 10:32
--- NOTE | 2018-10-30 10:45 | CONS ---
Assessment/Plan Assessment/Plan Problems: (1) Hypocalcemia Onset Date: ~ 10/14/2018 Status: Acute Comment: Calcium remains stable. Corrects to normal. Consultation Date/Type/Reason Admit Date/Time Oct 09, 2018 at 12:16 Initial Consult Date 10/12/18 Type of Consult Endocrine Reason for Consultation Hypocalcemia Requesting Provider: NOLA VIDAL MD Date/Time of Note DATE: 10/30/18 TIME: 10:42 24 HR Interval Summary Free Text/Dictation Family at bedside. No new events past 24 hours Exam/Review of Systems Exam Vitals Vital Signs Date Temp Pulse Resp B/P (MAP) Pulse Ox O2 O2 Flow FiO2 Time Delivery Rate 10/30/18 112 18 93/63 (73) 94 Mechanical 06:00 Ventilator 10/30/18 55 05:51 10/30/18 98.9 04:00 Intake and Output 10/29/18 10/29/18 10/30/18 1515:00 23:00 07:00 IntakeIntake Total 970 ml 970 ml 900 ml OutputOutput Total 150 ml 550 ml 800 ml BalanceBalance 820 ml 420 ml 100 ml Eyes: other (spontaneous eye aperture) ENMT: intubated Respiratory: other (coarse breath sounds) Cardiovascular: other (sinus tachycardia) Musculoskeletal: nl extremities to inspection Results Result Diagram: 10/30/18 0433 10/30/18 0433 Results 24hrs Laboratory Tests Test 10/29/18 13:44 10/29/18 20:32 10/30/18 02:21 10/30/18 04:33 Bedside Glucose 136 161 96 White Blood Count 24.1 H Red Blood Count 3.23 L Hemoglobin 9.4 L Hematocrit 31.3 L Mean Corpuscular 96.9 Volume Mean Corpuscular 29.1 Hemoglobin Mean Corpuscular 30.0 L Hemoglobin Concent Red Cell 18.6 H Distribution Width Platelet Count 257 Mean Platelet Volume 12.4 H Immature 4.500 H Granulocytes % Neutrophils % 80.1 H Lymphocytes % 4.0 L Monocytes % 8.3 Eosinophils % 2.6 Basophils % 0.5 Nucleated Red Blood 0.0 Cells % Immature 1.090 H Granulocytes # Neutrophils # 19.3 H Lymphocytes # 1.0 Monocytes # 2.0 H Eosinophils # 0.6 H Basophils # 0.1 Nucleated Red Blood 0.0 Cells # Sodium Level 136 Potassium Level 4.0 Chloride Level 101 Carbon Dioxide Level 31 Anion Gap 4 L Blood Urea Nitrogen 26 H Creatinine 0.32 L Est Glomerular > 60 Filtrat Rate mL/min Glucose Level 92 Calcium Level 7.6 L Total Bilirubin 0.1 L Direct Bilirubin 0.00 Indirect Bilirubin 0.1 Aspartate Amino 33 Transf (AST/SGOT) Alanine 40 Aminotransferase (AL T/SGPT) Alkaline Phosphatase 103 Total Protein 4.5 L Albumin 2.4 L Globulin 2.10 Albumin/Globulin 1.14 Ratio Test 10/30/18 08:48 Bedside Glucose 93 Medications Medication Current Medications Acetaminophen (Tylenol Liquid) 650 mg Q4H PRN GTB MILD PAIN(1-3)OR ELEVATED TEMP Last administered on 10/16/18at 07:52; Admin Dose 650 MG; Start 10/09/18 at 14:00 Al Hydrox/Mg Hydrox/Simethicone (Mag-Al Plus) 15 ml Q6H PRN PO GASTROINTESTINAL UPSET Last administered on 10/17/18 13:18; Admin Dose 15 ML; Start 10/09/18 at 14:00 Eye Lubricant (Artificial Tears Oph) 1 drop Q6H PRN BOTH EYES DRY EYES; Start 10/09/18 at 14:00 Bisacodyl (Dulcolax Supp) 10 mg DAILY PRN [place] CONSTIPATION; Start 10/09/18 at 14:00 Clonidine (Catapres) 0.1 mg DAILY PRN GTB ELEVATED BLOOD PRESSURE; Start 10/09/18 at 14:00 Diltiazem HCl (Cardizem Iv) 5 mg Q4 PRN IV ELEVATED HEART RATE Last administered on 10/18/18at 01:09; Admin Dose 5 MG; Start 10/09/18 at 14:00 Diphenhydramine HCl (Benadryl Liquid Cup) 25 mg Q6 PRN GTB ITCHING Last administered on 10/22/18at 20:25; Admin Dose 25 MG; Start 10/09/18 at 14:00 Duloxetine HCl (Cymbalta) 30 mg DAILY PO Last administered on 10/30/18at 08:49; Admin Dose 30 MG; Start 10/10/18 at 09:00 Gabapentin (Neurontin Liquid) 400 mg Q8 GTB Last administered on 10/30/18at 05:23; Admin Dose 400 MG; Start 10/09/18 at 15:30 Hydralazine HCl (Apresoline) 10 mg Q4H PRN IV ELEVATED BLOOD PRESSURE; Start 10/09/18 at 14:00 Hydroxychloroquine Sulfate (Plaquenil) 200 mg BID PO Last administered on 10/30/18 08:50; Admin Dose 200 MG; Start 10/09/18 at 21:00 Diagnostic Test (Pha) (Accu-Chek) 1 ea 02 XX Last administered on 10/30/18 02:19; Admin Dose 1 EA; Start 10/10/18 at 02:00 Insulin Aspart (Novolog Insulin Pen) NOVOLOG *CUSTOM* ALGORITHM Q6H SC Last administered on 10/29/18 20:36; Admin Dose 1 UNIT; Start 10/09/18 at 14:00 Lactobacillus Acidophilus (Florajen3 Capsule) 1 each BID GTB Last administered on 10/30/18 08:49; Admin Dose 1 EACH; Start 10/09/18 at 21:00 Lansoprazole (Prevacid) 30 mg BID@,18 GTB Last administered on 10/30/18 05:23; Admin Dose 30 MG; Start 10/09/18 at 18:00 Levetiracetam (Keppra Liquid) 500 mg BID GTB Last administered on 10/30/18 08:47; Admin Dose 500 MG; Start 10/09/18 at 21:00 Magnesium Oxide (Mag-Ox 400) 400 mg BID GTB Last administered on 10/30/18 08:50; Admin Dose 400 MG; Start 10/09/18 at 21:00 Metoclopramide HCl (Reglan) 10 mg TID IV Last administered on 10/30/18 08:47; Admin Dose 10 MG; Start 10/09/18 at 21:00 Miconazole Nitrate (Miconazole 2% Cr) 1 applic BID TOP Last administered on 10/30/18 08:46; Admin Dose 1 APPLIC; Start 10/09/18 at 21:00 Miconazole Nitrate (Miconazole 2% Cr) 1 applic Q12 PRN TOP rash; Start 10/09/18 at 14:00 Ondansetron HCl (Zofran Inj) 4 mg Q4H PRN IV NAUSEA AND/OR VOMITING Last administered on 10/19/18 16:37; Admin Dose 4 MG; Start 10/09/18 at 14:00 Polyethylene Glycol (Miralax) 17 gm DAILY PRN GTB CONSTIPATION; Start 10/09/18 at 14:00 Senna (Senokot) 2 tab Q8 PRN PO CONSTIPATION; Start 10/09/18 at 14:00 Trimethoprim/ Sulfamethoxazole (Bactrim Susp) 40 ml DAILY GTB Last administered on 10/30/18at 08:46; Admin Dose 40 ML; Start 10/10/18 at 09:00 Zolpidem Tartrate (Ambien) 5 mg HS PRN PO INSOMNIA Last administered on 10/21/18at 02:34; Admin Dose 5 MG; Start 10/09/18 at 14:00 Miscellaneous Information 1 ea NOTE XX ; Start 10/09/18 at 15:00 Glucose (Glutose) 15 gm Q15M PRN PO DECREASED GLUCOSE; Start 10/09/18 at 15:00 Glucose (Glutose) 22.5 gm Q15M PRN PO DECREASED GLUCOSE; Start 10/09/18 at 15:00 Dextrose (D50w Syringe) 25 ml Q15M PRN IV DECREASED GLUCOSE; Start 10/09/18 at 15:00 Dextrose (D50w Syringe) 50 ml Q15M PRN IV DECREASED GLUCOSE; Start 10/09/18 at 15:00 Glucagon (Glucagen) 1 mg Q15M PRN IM DECREASED GLUCOSE; Start 10/09/18 at 15:00 Glucose (Glutose) 15 gm Q15M PRN BUCCAL DECREASED GLUCOSE; Start 10/09/18 at 15:00 Sodium Chloride 500 ml @ 500 mls/hr Q1H PRN IV BLOOD PRESSURE SUPPORT Last administered on 10/10/18at 07:59; Admin Dose 500 MLS/HR; Start 10/09/18 at 19:30 Albuterol (Ventolin Hfa) 4 puff Q6H RESP THERAPY INH Last administered on 10/30/18at 01:23; Admin Dose 4 PUFF; Start 10/10/18 at 02:00 Ipratropium [place] (Atrovent Hfa) 4 puff Q6H RESP THERAPY INH Last administered on 10/30/18at 01:23; Admin Dose 4 PUFF; Start 10/10/18 at 02:00 Lorazepam (Ativan) 1 mg Q4H PRN GTB AGITATION/ANXIETY Last administered on 3/6/19at 17:35; Admin Dose 1 MG; Start 10/14/18 at 13:00 Lisinopril (Zestril) 2.5 mg DAILY PO Last administered on 10/30/18 09:19; Admin Dose 2.5 MG; Start 10/15/18 at 09:00 Linagliptin (Tradjenta) 5 mg DAILY PO Last administered on 10/30/18 08:51; Admin Dose 5 MG; Start 10/16/18 at 10:30 Fentanyl (Duragesic 50 Mcg/Hr Patch) 1 patch Q72H TRANSDERM Last administered on 10/29/18 21:43; Admin Dose 1 PATCH; Start 10/17/18 at 20:30 Lorazepam (Ativan) 2 mg Q6H GTB Last administered on 10/30/18 08:53; Admin Dose 2 MG; Start 10/20/18 at 15:00 Quetiapine Fumarate (Seroquel) 100 mg BID GTB Last administered on 10/30/18 08:49; Admin Dose 100 MG; Start 10/21/18 at 21:00 Hydromorphone HCl (Dilaudid) 6 mg Q4H PRN PO MODERATE PAIN LEVEL 7-10 Last administered on 10/30/18 02:28; Admin Dose 6 MG; Start 10/21/18 at 22:00 Calcium Carbonate (Ca Carbonate) 1,250 mg QID GTB Last administered on 10/30/18 08:47; Admin Dose 1,250 MG; Start 10/24/18 at 13:00 Carvedilol (Coreg) 6.25 mg BID PO Last administered on 10/30/18 09:19; Admin Dose 6.25 MG; Start 10/27/18 at 21:00 Calcitriol (Rocaltrol) 1 mcg BID PO Last administered on 10/30/18 08:50; Admin Dose 1 MCG; Start 10/28/18 at 09:00 Sodium Chloride 1,000 ml @ 75 mls/hr [id number] IV Last administered on 10/30/18 03:26; Admin Dose 75 MLS/HR; Start 10/28/18 at 10:00 Metoprolol Tartrate (Lopressor) 5 mg Q4H PRN IV HR>110 Hold SBP<100; Start 3/15/19 at 12:30 SARAH PASCAL MD Oct 30, 2018 10:45
--- NOTE | 2018-10-30 11:38 | PN ---
Date/Time of Note Date/Time of Note DATE: 10/30/18 TIME: 11:37 Assessment/Plan VTE Prophylaxis Risk score (from [facility])>0 risk: 9 SCD applied (from [facility]): Yes SCD contraindicated: other Pharmacological prophylaxis: other Pharm contraindication: other Lines/Catheters IV Catheter Type (from [facility]): Mid Line Central line still needed: Yes Urinary Cath still in place: No Assessment/Plan Assessment/Plan - Acute on chronic hypoxemic respiratory failure with underlying ARDS, continue ventilatory support. Dr. Villa is following in pulmonology consultation. - Acute kidney injury, continue to monitor BUN and creatinine. G-tube feeding changed to renal source. Dr. Hobson is following in nephrology consultation. -Tachycardia, Dr. Joshi is following in cardiology consultation. - Cardiomyopathy with EF 35-40% - Rheumatoid arthritis with steroid dependence. The patient's pain seems to be controlled with the current dose of fentanyl. - Dysphagia. Continue GT feeding. - Anemia of chronic disease. - Hypoparathyroidism with recent hypercalcemia, status post pamidronate. - Hypertension. - Functional quadriplegia - Hx of severe cervical spinal cord stenosis with cord compression from C3-C5, s/p laminectomy. - History of fibromyalgia rheumatica - Hx of VAT on 08/11/2018 - Poor prognosis, Dr. Zurita is asked to see patient in palliative care consultation. Critical care time spent 30 minutes. Further recommendations based on clinical course. Plan of care discussed with Dr. Rosales Result Diagram: 10/30/18 0433 10/30/18 0433 Results 24hrs Laboratory Tests Test 10/29/18 13:44 10/29/18 20:32 10/30/18 02:21 10/30/18 04:33 Bedside Glucose 136 161 96 White Blood Count 24.1 H Red Blood Count 3.23 L Hemoglobin 9.4 L Hematocrit 31.3 L Mean Corpuscular 96.9 Volume Mean Corpuscular 29.1 Hemoglobin Mean Corpuscular 30.0 L Hemoglobin Concent Red Cell 18.6 H Distribution Width Platelet Count 257 Mean Platelet Volume 12.4 H Immature 4.500 H Granulocytes % Neutrophils % 80.1 H Lymphocytes % 4.0 L Monocytes % 8.3 Eosinophils % 2.6 Basophils % 0.5 Nucleated Red Blood 0.0 Cells % Immature 1.090 H Granulocytes # Neutrophils # 19.3 H Lymphocytes # 1.0 Monocytes # 2.0 H Eosinophils # 0.6 H Basophils # 0.1 Nucleated Red Blood 0.0 Cells # Sodium Level 136 Potassium Level 4.0 Chloride Level 101 Carbon Dioxide Level 31 Anion Gap 4 L Blood Urea Nitrogen 26 H Creatinine 0.32 L Est Glomerular > 60 Filtrat Rate mL/min Glucose Level 92 Calcium Level 7.6 L Total Bilirubin 0.1 L Direct Bilirubin 0.00 Indirect Bilirubin 0.1 Aspartate Amino 33 Transf (AST/SGOT) Alanine 40 Aminotransferase (AL T/SGPT) Alkaline Phosphatase 103 Total Protein 4.5 L Albumin 2.4 L Globulin 2.10 Albumin/Globulin 1.14 Ratio Test 10/30/18 08:48 Bedside Glucose 93 Subjective 24 Hr Interval Summary Subjective hx not possible: pt non-verbal, pt critical, pt critical status Constitutional: requiring O2 Exam/Review of Systems Exam Vitals Vital Signs Date Temp Pulse Resp B/P (MAP) Pulse Ox O2 O2 Flow FiO2 Time Delivery Rate 10/30/18 115 08:00 10/30/18 18 93/63 (73) 94 Mechanical 06:00 Ventilator 10/30/18 55 05:51 10/30/18 98.9 04:00 Intake and Output 10/29/18 10/29/18 10/30/18 1414:59 22:59 06:59 IntakeIntake Total 970 ml 970 ml 1015 ml OutputOutput Total 150 ml 550 ml 800 ml BalanceBalance 820 ml 420 ml 215 ml Constitutional: alert, well developed, frail Psych: nl mood/affect Eyes: nl lids, nl sclera ENMT: nl external ears & nose Neck: supple, other Respiratory: diminished breath sounds Cardiovascular: nl pulses, other Gastrointestinal: soft, non-tender Musculoskeletal: muscle weakness, range of motion Extremities: normal pulses Neurological: confused Lymph: nontender Results Results 24hrs Laboratory Tests Test 10/29/18 13:44 10/29/18 20:32 10/30/18 02:21 10/30/18 04:33 Bedside Glucose 136 161 96 White Blood Count 24.1 H Red Blood Count 3.23 L Hemoglobin 9.4 L Hematocrit 31.3 L Mean Corpuscular 96.9 Volume Mean Corpuscular 29.1 Hemoglobin Mean Corpuscular 30.0 L Hemoglobin Concent Red Cell 18.6 H Distribution Width Platelet Count 257 Mean Platelet Volume 12.4 H Immature 4.500 H Granulocytes % Neutrophils % 80.1 H Lymphocytes % 4.0 L Monocytes % 8.3 Eosinophils % 2.6 Basophils % 0.5 Nucleated Red Blood 0.0 Cells % Immature 1.090 H Granulocytes # Neutrophils # 19.3 H Lymphocytes # 1.0 Monocytes # 2.0 H Eosinophils # 0.6 H Basophils # 0.1 Nucleated Red Blood 0.0 Cells # Sodium Level 136 Potassium Level 4.0 Chloride Level 101 Carbon Dioxide Level 31 Anion Gap 4 L Blood Urea Nitrogen 26 H Creatinine 0.32 L Est Glomerular > 60 Filtrat Rate mL/min Glucose Level 92 Calcium Level 7.6 L Total Bilirubin 0.1 L Direct Bilirubin 0.00 Indirect Bilirubin 0.1 Aspartate Amino 33 Transf (AST/SGOT) Alanine 40 Aminotransferase (AL T/SGPT) Alkaline Phosphatase 103 Total Protein 4.5 L Albumin 2.4 L Globulin 2.10 Albumin/Globulin 1.14 Ratio Test 10/30/18 08:48 Bedside Glucose 93 Medications Medication Current Medications Acetaminophen (Tylenol Liquid) 650 mg Q4H PRN GTB MILD PAIN(1-3)OR ELEVATED TEMP Last administered on 10/16/18at 07:52; Admin Dose 650 MG; Start 10/09/18 at 14:00 Al Hydrox/Mg Hydrox/Simethicone (Mag-Al Plus) 15 ml Q6H PRN PO GASTROINTESTINAL UPSET Last administered on 10/17/18at 13:18; Admin Dose 15 ML; Start 10/09/18 at 14:00 Eye Lubricant (Artificial Tears Oph) 1 drop Q6H PRN BOTH EYES DRY EYES; Start 10/09/18 at 14:00 Bisacodyl (Dulcolax Supp) 10 mg DAILY PRN [place] CONSTIPATION; Start 10/09/18 at 14:00 Clonidine (Catapres) 0.1 mg DAILY PRN GTB ELEVATED BLOOD PRESSURE; Start 10/09/18 at 14:00 Diltiazem HCl (Cardizem Iv) 5 mg Q4 PRN IV ELEVATED HEART RATE Last administered on 10/18/18at 01:09; Admin Dose 5 MG; Start 10/09/18 at 14:00 Diphenhydramine HCl (Benadryl Liquid Cup) 25 mg Q6 PRN GTB ITCHING Last administered on 10/22/18 20:25; Admin Dose 25 MG; Start 10/09/18 at 14:00 Duloxetine HCl (Cymbalta) 30 mg DAILY PO Last administered on 10/30/18 08:49; Admin Dose 30 MG; Start 10/10/18 at 09:00 Gabapentin (Neurontin Liquid) 400 mg Q8 GTB Last administered on 10/30/18 05:23; Admin Dose 400 MG; Start 10/09/18 at 15:30 Hydralazine HCl (Apresoline) 10 mg Q4H PRN IV ELEVATED BLOOD PRESSURE; Start 10/09/18 at 14:00 Hydroxychloroquine Sulfate (Plaquenil) 200 mg BID PO Last administered on 10/30/18 08:50; Admin Dose 200 MG; Start 10/09/18 at 21:00 Diagnostic Test (Pha) (Accu-Chek) 1 ea 02 XX Last administered on 10/30/18 02:19; Admin Dose 1 EA; Start 10/10/18 at 02:00 Insulin Aspart (Novolog Insulin Pen) NOVOLOG *CUSTOM* ALGORITHM Q6H SC Last administered on 10/29/18 20:36; Admin Dose 1 UNIT; Start 10/09/18 at 14:00 Lactobacillus Acidophilus (Florajen3 Capsule) 1 each BID GTB Last administered on 10/30/18 08:49; Admin Dose 1 EACH; Start 10/09/18 at 21:00 Lansoprazole (Prevacid) 30 mg BID@06,18 GTB Last administered on 10/30/18 05:23; Admin Dose 30 MG; Start 10/09/18 at 18:00 Levetiracetam (Keppra Liquid) 500 mg BID GTB Last administered on 10/30/18 08:47; Admin Dose 500 MG; Start 10/09/18 at 21:00 Magnesium Oxide (Mag-Ox 400) 400 mg BID GTB Last administered on 10/30/18 08:50; Admin Dose 400 MG; Start 10/09/18 at 21:00 Metoclopramide HCl (Reglan) 10 mg TID IV Last administered on 10/30/18 08:47; Admin Dose 10 MG; Start 10/09/18 at 21:00 Miconazole Nitrate (Miconazole 2% Cr) 1 applic BID TOP Last administered on 3/17/19at 08:46; Admin Dose 1 APPLIC; Start 10/09/18 at 21:00 Miconazole Nitrate (Miconazole 2% Cr) 1 applic Q12 PRN TOP rash; Start 10/09/18 at 14:00 Ondansetron HCl (Zofran Inj) 4 mg Q4H PRN IV NAUSEA AND/OR VOMITING Last administered on 10/19/18at 16:37; Admin Dose 4 MG; Start 10/09/18 at 14:00 Polyethylene Glycol (Miralax) 17 gm DAILY PRN GTB CONSTIPATION; Start 10/09/18 at 14:00 Senna (Senokot) 2 tab Q8 PRN PO CONSTIPATION; Start 10/09/18 at 14:00 Trimethoprim/ Sulfamethoxazole (Bactrim Susp) 40 ml DAILY GTB Last administered on 10/30/18at 08:46; Admin Dose 40 ML; Start 10/10/18 at 09:00 Zolpidem Tartrate (Ambien) 5 mg HS PRN PO INSOMNIA Last administered on 10/21/18at 02:34; Admin Dose 5 MG; Start 10/09/18 at 14:00 Miscellaneous Information 1 ea NOTE XX ; Start 10/09/18 at 15:00 Glucose (Glutose) 15 gm Q15M PRN PO DECREASED GLUCOSE; Start 10/09/18 at 15:00 Glucose (Glutose) 22.5 gm Q15M PRN PO DECREASED GLUCOSE; Start 10/09/18 at 15:00 Dextrose (D50w Syringe) 25 ml Q15M PRN IV DECREASED GLUCOSE; Start 10/09/18 at 15:00 Dextrose (D50w Syringe) 50 ml Q15M PRN IV DECREASED GLUCOSE; Start 10/09/18 at 15:00 Glucagon (Glucagen) 1 mg Q15M PRN IM DECREASED GLUCOSE; Start 10/09/18 at 15:00 Glucose (Glutose) 15 gm Q15M PRN BUCCAL DECREASED GLUCOSE; Start 10/09/18 at 15:00 Sodium Chloride 500 ml @ 500 mls/hr Q1H PRN IV BLOOD PRESSURE SUPPORT Last administered on 10/10/18at 07:59; Admin Dose 500 MLS/HR; Start 10/09/18 at 19:30 Albuterol (Ventolin Hfa) 4 puff Q6H RESP THERAPY INH Last administered on 10/30/18 01:23; Admin Dose 4 PUFF; Start 10/10/18 at 02:00 Ipratropium [place] (Atrovent Hfa) 4 puff Q6H RESP THERAPY INH Last administered on 10/30/18 01:23; Admin Dose 4 PUFF; Start 10/10/18 at 02:00 Lorazepam (Ativan) 1 mg Q4H PRN GTB AGITATION/ANXIETY Last administered on 10/19/18 17:35; Admin Dose 1 MG; Start 10/14/18 at 13:00 Lisinopril (Zestril) 2.5 mg DAILY PO Last administered on 10/30/18 09:19; Admin Dose 2.5 MG; Start 10/15/18 at 09:00 Linagliptin (Tradjenta) 5 mg DAILY PO Last administered on 10/30/18 08:51; Admin Dose 5 MG; Start 10/16/18 at 10:30 Fentanyl (Duragesic 50 Mcg/Hr Patch) 1 patch Q72H TRANSDERM Last administered on 10/29/18 21:43; Admin Dose 1 PATCH; Start 10/17/18 at 20:30 Lorazepam (Ativan) 2 mg Q6H GTB Last administered on 10/30/18 08:53; Admin Dose 2 MG; Start 10/20/18 at 15:00 Quetiapine Fumarate (Seroquel) 100 mg BID GTB Last administered on 10/30/18 08:49; Admin Dose 100 MG; Start 10/21/18 at 21:00 Hydromorphone HCl (Dilaudid) 6 mg Q4H PRN PO MODERATE PAIN LEVEL 7-10 Last administered on 10/30/18 02:28; Admin Dose 6 MG; Start 10/21/18 at 22:00 Calcium Carbonate (Ca Carbonate) 1,250 mg QID GTB Last administered on 10/30/18 08:47; Admin Dose 1,250 MG; Start 10/24/18 at 13:00 Carvedilol (Coreg) 6.25 mg BID PO Last administered on 10/30/18 09:19; Admin Dose 6.25 MG; Start 10/27/18 at 21:00 Calcitriol (Rocaltrol) 1 mcg BID PO Last administered on 10/30/18 08:50; Admin Dose 1 MCG; Start 10/28/18 at 09:00 Sodium Chloride 1,000 ml @ 75 mls/hr [id number] IV Last administered on 10/30/18at 03:26; Admin Dose 75 MLS/HR; Start 10/28/18 at 10:00 Metoprolol Tartrate (Lopressor) 5 mg Q4H PRN IV HR>110 Hold SBP<100; Start 10/28/18 at 12:30 TOMMY MARTELL Oct 30, 2018 11:38
--- NOTE | 2018-10-30 11:43 | CONS ---
Consult Date/Type/Reason Admit Date/Time Oct 09, 2018 at 12:16 Initial Consult Date 10/12/18 Type of Consultation: Pulm/CC Requesting Provider: NOLA VIDAL MD Date/Time of Note DATE: 10/30/18 TIME: 11:42 Subjective No overnight events. Objective Vitals Vital Signs Date Temp Pulse Resp B/P (MAP) Pulse Ox O2 O2 Flow FiO2 Time Delivery Rate 10/30/18 110 23 101/65 91 Mechanical 11:00 (77) Ventilator 10/30/18 98.6 08:00 10/30/18 55 05:51 Intake and Output 10/29/18 10/29/18 10/30/18 1515:00 23:00 07:00 IntakeIntake Total 970 ml 970 ml 1015 ml OutputOutput Total 150 ml 550 ml 850 ml BalanceBalance 820 ml 420 ml 165 ml Exam HEENT: Neck supple; no JVD; no LAD; + trach site clean CVS: RRR, S1 and S2 CHEST: Coarse BS b/l ABD: Soft, NT, + BS EXT: No c/c; tr edema Results/Medications Result Diagram: 10/30/18 0433 10/30/18 0433 Results 24 hrs Laboratory Tests Test 10/29/18 13:44 10/29/18 20:32 10/30/18 02:21 10/30/18 04:33 Bedside Glucose 136 161 96 White Blood Count 24.1 H Red Blood Count 3.23 L Hemoglobin 9.4 L Hematocrit 31.3 L Mean Corpuscular 96.9 Volume Mean Corpuscular 29.1 Hemoglobin Mean Corpuscular 30.0 L Hemoglobin Concent Red Cell 18.6 H Distribution Width Platelet Count 257 Mean Platelet Volume 12.4 H Immature 4.500 H Granulocytes % Neutrophils % 80.1 H Lymphocytes % 4.0 L Monocytes % 8.3 Eosinophils % 2.6 Basophils % 0.5 Nucleated Red Blood 0.0 Cells % Immature 1.090 H Granulocytes # Neutrophils # 19.3 H Lymphocytes # 1.0 Monocytes # 2.0 H Eosinophils # 0.6 H Basophils # 0.1 Nucleated Red Blood 0.0 Cells # Sodium Level 136 Potassium Level 4.0 Chloride Level 101 Carbon Dioxide Level 31 Anion Gap 4 L Blood Urea Nitrogen 26 H Creatinine 0.32 L Est Glomerular > 60 Filtrat Rate mL/min Glucose Level 92 Calcium Level 7.6 L Total Bilirubin 0.1 L Direct Bilirubin 0.00 Indirect Bilirubin 0.1 Aspartate Amino 33 Transf (AST/SGOT) Alanine 40 Aminotransferase (AL T/SGPT) Alkaline Phosphatase 103 Total Protein 4.5 L Albumin 2.4 L Globulin 2.10 Albumin/Globulin 1.14 Ratio Test 10/30/18 08:48 Bedside Glucose 93 Medications Current Medications Acetaminophen (Tylenol Liquid) 650 mg Q4H PRN GTB MILD PAIN(1-3)OR ELEVATED TEMP Last administered on 10/16/18 07:52; Admin Dose 650 MG; Start 10/09/18 at 14:00 Al Hydrox/Mg Hydrox/Simethicone (Mag-Al Plus) 15 ml Q6H PRN PO GASTROINTESTINAL UPSET Last administered on 10/17/18 13:18; Admin Dose 15 ML; Start 10/09/18 at 14:00 Eye Lubricant (Artificial Tears Oph) 1 drop Q6H PRN BOTH EYES DRY EYES; Start 10/09/18 at 14:00 Bisacodyl (Dulcolax Supp) 10 mg DAILY PRN [place] CONSTIPATION; Start 10/09/18 at 14:00 Clonidine (Catapres) 0.1 mg DAILY PRN GTB ELEVATED BLOOD PRESSURE; Start 10/09/18 at 14:00 Diltiazem HCl (Cardizem Iv) 5 mg Q4 PRN IV ELEVATED HEART RATE Last administered on 10/18/18 01:09; Admin Dose 5 MG; Start 10/09/18 at 14:00 Diphenhydramine HCl (Benadryl Liquid Cup) 25 mg Q6 PRN GTB ITCHING Last administered on 10/22/18at 20:25; Admin Dose 25 MG; Start 10/09/18 at 14:00 Duloxetine HCl (Cymbalta) 30 mg DAILY PO Last administered on 10/30/18at 08:49; Admin Dose 30 MG; Start 10/10/18 at 09:00 Gabapentin (Neurontin Liquid) 400 mg Q8 GTB Last administered on 10/30/18at 05:23; Admin Dose 400 MG; Start 10/09/18 at 15:30 Hydralazine HCl (Apresoline) 10 mg Q4H PRN IV ELEVATED BLOOD PRESSURE; Start 10/09/18 at 14:00 Hydroxychloroquine Sulfate (Plaquenil) 200 mg BID PO Last administered on 10/30/18 08:50; Admin Dose 200 MG; Start 10/09/18 at 21:00 Diagnostic Test (Pha) (Accu-Chek) 1 ea 02 XX Last administered on 10/30/18 02:19; Admin Dose 1 EA; Start 10/10/18 at 02:00 Insulin Aspart (Novolog Insulin Pen) NOVOLOG *CUSTOM* ALGORITHM Q6H SC Last administered on 10/29/18 20:36; Admin Dose 1 UNIT; Start 10/09/18 at 14:00 Lactobacillus Acidophilus (Florajen3 Capsule) 1 each BID GTB Last administered on 10/30/18 08:49; Admin Dose 1 EACH; Start 10/09/18 at 21:00 Lansoprazole (Prevacid) 30 mg BID@06,18 GTB Last administered on 10/30/18 05:23; Admin Dose 30 MG; Start 10/09/18 at 18:00 Levetiracetam (Keppra Liquid) 500 mg BID GTB Last administered on 10/30/18 08:47; Admin Dose 500 MG; Start 10/09/18 at 21:00 Magnesium Oxide (Mag-Ox 400) 400 mg BID GTB Last administered on 10/30/18 08:50; Admin Dose 400 MG; Start 10/09/18 at 21:00 Metoclopramide HCl (Reglan) 10 mg TID IV Last administered on 10/30/18 08:47; Admin Dose 10 MG; Start 10/09/18 at 21:00 Miconazole Nitrate (Miconazole 2% Cr) 1 applic BID TOP Last administered on 10/30/18 08:46; Admin Dose 1 APPLIC; Start 10/09/18 at 21:00 Miconazole Nitrate (Miconazole 2% Cr) 1 applic Q12 PRN TOP rash; Start 10/09/18 at 14:00 Ondansetron HCl (Zofran Inj) 4 mg Q4H PRN IV NAUSEA AND/OR VOMITING Last administered on 10/19/18 16:37; Admin Dose 4 MG; Start 10/09/18 at 14:00 Polyethylene Glycol (Miralax) 17 gm DAILY PRN GTB CONSTIPATION; Start 10/09/18 at 14:00 Senna (Senokot) 2 tab Q8 PRN PO CONSTIPATION; Start 10/09/18 at 14:00 Trimethoprim/ Sulfamethoxazole (Bactrim Susp) 40 ml DAILY GTB Last administered on 10/30/18at 08:46; Admin Dose 40 ML; Start 10/10/18 at 09:00 Zolpidem Tartrate (Ambien) 5 mg HS PRN PO INSOMNIA Last administered on 10/21/18at 02:34; Admin Dose 5 MG; Start 10/09/18 at 14:00 Miscellaneous Information 1 ea NOTE XX ; Start 10/09/18 at 15:00 Glucose (Glutose) 15 gm Q15M PRN PO DECREASED GLUCOSE; Start 10/09/18 at 15:00 Glucose (Glutose) 22.5 gm Q15M PRN PO DECREASED GLUCOSE; Start 10/09/18 at 15:00 Dextrose (D50w Syringe) 25 ml Q15M PRN IV DECREASED GLUCOSE; Start 10/09/18 at 15:00 Dextrose (D50w Syringe) 50 ml Q15M PRN IV DECREASED GLUCOSE; Start 10/09/18 at 15:00 Glucagon (Glucagen) 1 mg Q15M PRN IM DECREASED GLUCOSE; Start 10/09/18 at 15:00 Glucose (Glutose) 15 gm Q15M PRN BUCCAL DECREASED GLUCOSE; Start 10/09/18 at 15:00 Sodium Chloride 500 ml @ 500 mls/hr Q1H PRN IV BLOOD PRESSURE SUPPORT Last administered on 10/10/18at 07:59; Admin Dose 500 MLS/HR; Start 10/09/18 at 19:30 Albuterol (Ventolin Hfa) 4 puff Q6H RESP THERAPY INH Last administered on 10/30/18at 01:23; Admin Dose 4 PUFF; Start 10/10/18 at 02:00 Ipratropium [place] (Atrovent Hfa) 4 puff Q6H RESP THERAPY INH Last administered on 10/30/18at 01:23; Admin Dose 4 PUFF; Start 10/10/18 at 02:00 Lorazepam (Ativan) 1 mg Q4H PRN GTB AGITATION/ANXIETY Last administered on 10/19/18at 17:35; Admin Dose 1 MG; Start 10/14/18 at 13:00 Lisinopril (Zestril) 2.5 mg DAILY PO Last administered on 10/30/18 09:19; Admin Dose 2.5 MG; Start 10/15/18 at 09:00 Linagliptin (Tradjenta) 5 mg DAILY PO Last administered on 10/30/18 08:51; Admin Dose 5 MG; Start 10/16/18 at 10:30 Fentanyl (Duragesic 50 Mcg/Hr Patch) 1 patch Q72H TRANSDERM Last administered on 10/29/18 21:43; Admin Dose 1 PATCH; Start 10/17/18 at 20:30 Lorazepam (Ativan) 2 mg Q6H GTB Last administered on 10/30/18 08:53; Admin Dose 2 MG; Start 10/20/18 at 15:00 Quetiapine Fumarate (Seroquel) 100 mg BID GTB Last administered on 10/30/18 08:49; Admin Dose 100 MG; Start 10/21/18 at 21:00 Hydromorphone HCl (Dilaudid) 6 mg Q4H PRN PO MODERATE PAIN LEVEL 7-10 Last administered on 10/30/18 02:28; Admin Dose 6 MG; Start 10/21/18 at 22:00 Calcium Carbonate (Ca Carbonate) 1,250 mg QID GTB Last administered on 10/30/18 08:47; Admin Dose 1,250 MG; Start 10/24/18 at 13:00 Carvedilol (Coreg) 6.25 mg BID PO Last administered on 10/30/18 09:19; Admin Dose 6.25 MG; Start 10/27/18 at 21:00 Calcitriol (Rocaltrol) 1 mcg BID PO Last administered on 10/30/18 08:50; Admin Dose 1 MCG; Start 10/28/18 at 09:00 Sodium Chloride 1,000 ml @ 75 mls/hr [id number] IV Last administered on 10/30/18 03:26; Admin Dose 75 MLS/HR; Start 10/28/18 at 10:00 Metoprolol Tartrate (Lopressor) 5 mg Q4H PRN IV HR>110 Hold SBP<100; Start 10/28/18 at 12:30 Assessment/Plan Assessment/Plan (Daily) IMP: 1. Acute on chronic hypoxemic respiratory failure with underlying acute respiratory distress syndrome. 2. History of HSV esophagitis. 3. Chronic sepsis. 4. History of rheumatoid arthritis. 5. C-spine disease with functional quadriplegia. 6. Dysphagia with G-tube. RECS: 1. Continue mechanical, decrease FiO2 as tolerated 2. Continue tube feeding 3. ID recommendations for antibiotics 4. PT eval as tolerated 5. Appreciate Palliative input Critical care time 40 minutes YOLETTE REYNOLDS MD Oct 30, 2018 11:43
--- NOTE | 2018-10-30 17:54 | CONS ---
Assessment/Plan Assessment/Plan Hospital Course (Demo Recall) # sepsis, respiratory - recurrent sepsis on 10/08/2018 due to aspiration pneumonia, HCAP, improved - possible aspiration pneumonia, recurrent pneumonia due to Citrobacter, improved - acute on chronic hypoxic and hypercarbic respiratory failure - persistent leukocytosis likely due to steroid margination - h/o tracheostomy on 08/26/2018 - h/o "Increased mild left apical pneumothorax" per CXR on 09/19/2018; no pneumothorax mentioned on subsequent CXR - h/o pneumomediastinum - h/o VAT on 08/11/2018 - h/o asthma/COPD exacerbation - h/o acute tracheobronchitis - h/o MAC infection but CT chest did not demonstrate features suggestive of this per chart review - On this admission AFB smear x3 have been negative (10/21/18 0600, 10/21/18 1530, and 10/22/18 0040), pneumocystis jiroveci 10/18/18 not detected. Coccioides screen negative. TB Quant Gold neg. - h/o HCAP due to citrobacter, based on resp culture on 09/13/2018 - h/o aspergillus growing out of resp culture per (pulm note by Dr. Lopez) on 07/25/2018 - h/o elevated 1,3 [id number] level = 232 on 08/06/2018 - h/o MSSA septicemia # GI - diarrhea, C diff on 10/09/2018 was negative - h/o HSV esophagitis, took acyclovir x21 days from 08/26/2018 - h/o EGD, esophageal biopsy showed esophageal squamous mucosa showing acute inflammation, granulation tissue, and ulceration consistent with ulcerative esophagitis, rare multinucleated cells with morphology suggestive of vial cytopathic changes, No cardiac mucosa, intestinal metaplasia, dysplasia, or malignancy defined - GERD - PUD # renal/ - Hypokalemia, recurrent - CKD 2 - BPH # cardiac - tachycardia, persistent - ACD - HTN - HLD # endo - T2DM - Hgb A1c 7.2% - secondary adrenal insufficiency; steroid dependent - Hypoparathyroidism - Hypercalcemia - Pamidronate was ordered # neuro - toxic metabolic encephalopathy - Cervical myopathy - Severe cervical spinal cord stenosis with cord compression from C3-C5, s/p laminectomy in ~03/2018 - Chronic pain syndrome - Functional quadriplegia - Seizure d/o # other chronic conditions - RA with chronic steroid dependence - Immunocompromised status - Fibromyalgia - DDD - H/o multiple rib fracture - Pt completed: meropenem (09/25/2018-10/02/2018), vancomycin (09/25/18-09/28/18), pip/tazo (10/09/2018-10/15/2018) Recommendations: - Pending: AFB culture x3 to r/o mycobacterium avium intracellulaire (AFB smear x3 have resulted negative) - Continue Bactrim for pneumocystis PPX - Continue to monitor off other systemic antibiotic Consultation Date/Type/Reason Admit Date/Time Oct 09, 2018 at 12:16 Initial Consult Date 10/12/18 Requesting Provider: NOLA VIDAL MD Date/Time of Note DATE: 10/30/18 TIME: 17:53 Exam/Review of Systems Exam Vitals Vital Signs Date Temp Pulse Resp B/P (MAP) Pulse Ox O2 O2 Flow FiO2 Time Delivery Rate 10/30/18 94 20 89/53 (65) 99 Mechanical 17:00 Ventilator 10/30/18 98.0 16:00 10/30/18 60 15:40 Intake and Output 10/29/18 10/29/18 10/30/18 1414:59 22:59 06:59 IntakeIntake Total 970 ml 970 ml 1015 ml OutputOutput Total 150 ml 550 ml 800 ml BalanceBalance 820 ml 420 ml 215 ml Results Result Diagram: 10/30/18 0433 10/30/18 0433 Results 24hrs Laboratory Tests Test 10/29/18 20:32 10/30/18 02:21 10/30/18 04:33 10/30/18 08:48 Bedside Glucose 161 96 93 White Blood Count 24.1 H Red Blood Count 3.23 L Hemoglobin 9.4 L Hematocrit 31.3 L Mean Corpuscular 96.9 Volume Mean Corpuscular 29.1 Hemoglobin Mean Corpuscular 30.0 L Hemoglobin Concent Red Cell 18.6 H Distribution Width Platelet Count 257 Mean Platelet Volume 12.4 H Immature 4.500 H Granulocytes % Neutrophils % 80.1 H Lymphocytes % 4.0 L Monocytes % 8.3 Eosinophils % 2.6 Basophils % 0.5 Nucleated Red Blood 0.0 Cells % Immature 1.090 H Granulocytes # Neutrophils # 19.3 H Lymphocytes # 1.0 Monocytes # 2.0 H Eosinophils # 0.6 H Basophils # 0.1 Nucleated Red Blood 0.0 Cells # Sodium Level 136 Potassium Level 4.0 Chloride Level 101 Carbon Dioxide Level 31 Anion Gap 4 L Blood Urea Nitrogen 26 H Creatinine 0.32 L Est Glomerular > 60 Filtrat Rate mL/min Glucose Level 92 Calcium Level 7.6 L Total Bilirubin 0.1 L Direct Bilirubin 0.00 Indirect Bilirubin 0.1 Aspartate Amino 33 Transf (AST/SGOT) Alanine 40 Aminotransferase (AL T/SGPT) Alkaline Phosphatase 103 Total Protein 4.5 L Albumin 2.4 L Globulin 2.10 Albumin/Globulin 1.14 Ratio Test 10/30/18 13:48 Bedside Glucose 150 Medications Medication Current Medications Acetaminophen (Tylenol Liquid) 650 mg Q4H PRN GTB MILD PAIN(1-3)OR ELEVATED TEMP Last administered on 10/16/18 07:52; Admin Dose 650 MG; Start 10/09/18 at 14:00 Al Hydrox/Mg Hydrox/Simethicone (Mag-Al Plus) 15 ml Q6H PRN PO GASTROINTESTINAL UPSET Last administered on 10/17/18 13:18; Admin Dose 15 ML; Start 10/09/18 at 14:00 Eye Lubricant (Artificial Tears Oph) 1 drop Q6H PRN BOTH EYES DRY EYES; Start 10/09/18 at 14:00 Bisacodyl (Dulcolax Supp) 10 mg DAILY PRN [place] CONSTIPATION; Start 10/09/18 at 14:00 Clonidine (Catapres) 0.1 mg DAILY PRN GTB ELEVATED BLOOD PRESSURE; Start 10/09/18 at 14:00 Diltiazem HCl (Cardizem Iv) 5 mg Q4 PRN IV ELEVATED HEART RATE Last administered on 10/18/18at 01:09; Admin Dose 5 MG; Start 10/09/18 at 14:00 Diphenhydramine HCl (Benadryl Liquid Cup) 25 mg Q6 PRN GTB ITCHING Last administered on 10/22/18at 20:25; Admin Dose 25 MG; Start 10/09/18 at 14:00 Duloxetine HCl (Cymbalta) 30 mg DAILY PO Last administered on 10/30/18at 08:49; Admin Dose 30 MG; Start 10/10/18 at 09:00 Gabapentin (Neurontin Liquid) 400 mg Q8 GTB Last administered on 10/30/18 15:29; Admin Dose 400 MG; Start 10/09/18 at 15:30 Hydralazine HCl (Apresoline) 10 mg Q4H PRN IV ELEVATED BLOOD PRESSURE; Start 10/09/18 at 14:00 Hydroxychloroquine Sulfate (Plaquenil) 200 mg BID PO Last administered on 10/30/18 08:50; Admin Dose 200 MG; Start 10/09/18 at 21:00 Diagnostic Test (Pha) (Accu-Chek) 1 ea 02 XX Last administered on 10/30/18 02:19; Admin Dose 1 EA; Start 10/10/18 at 02:00 Insulin Aspart (Novolog Insulin Pen) NOVOLOG *CUSTOM* ALGORITHM Q6H SC Last administered on 10/29/18 20:36; Admin Dose 1 UNIT; Start 10/09/18 at 14:00 Lactobacillus Acidophilus (Florajen3 Capsule) 1 each BID GTB Last administered on 10/30/18 08:49; Admin Dose 1 EACH; Start 10/09/18 at 21:00 Lansoprazole (Prevacid) 30 mg BID@,18 GTB Last administered on 10/30/18 17:14; Admin Dose 30 MG; Start 10/09/18 at 18:00 Levetiracetam (Keppra Liquid) 500 mg BID GTB Last administered on 10/30/18 08:47; Admin Dose 500 MG; Start 10/09/18 at 21:00 Magnesium Oxide (Mag-Ox 400) 400 mg BID GTB Last administered on 10/30/18 08:50; Admin Dose 400 MG; Start 10/09/18 at 21:00 Metoclopramide HCl (Reglan) 10 mg TID IV Last administered on 10/30/18 13:40; Admin Dose 10 MG; Start 10/09/18 at 21:00 Miconazole Nitrate (Miconazole 2% Cr) 1 applic BID TOP Last administered on 10/30/18 08:46; Admin Dose 1 APPLIC; Start 10/09/18 at 21:00 Miconazole Nitrate (Miconazole 2% Cr) 1 applic Q12 PRN TOP rash; Start 10/09/18 at 14:00 Ondansetron HCl (Zofran Inj) 4 mg Q4H PRN IV NAUSEA AND/OR VOMITING Last administered on 10/19/18 16:37; Admin Dose 4 MG; Start 10/09/18 at 14:00 Polyethylene Glycol (Miralax) 17 gm DAILY PRN GTB CONSTIPATION; Start 10/09/18 at 14:00 Senna (Senokot) 2 tab Q8 PRN PO CONSTIPATION; Start 10/09/18 at 14:00 Trimethoprim/ Sulfamethoxazole (Bactrim Susp) 40 ml DAILY GTB Last administered on 10/30/18 08:46; Admin Dose 40 ML; Start 10/10/18 at 09:00 Zolpidem Tartrate (Ambien) 5 mg HS PRN PO INSOMNIA Last administered on 10/21/18 02:34; Admin Dose 5 MG; Start 10/09/18 at 14:00 Miscellaneous Information 1 ea NOTE XX ; Start 10/09/18 at 15:00 Glucose (Glutose) 15 gm Q15M PRN PO DECREASED GLUCOSE; Start 10/09/18 at 15:00 Glucose (Glutose) 22.5 gm Q15M PRN PO DECREASED GLUCOSE; Start 10/09/18 at 15:00 Dextrose (D50w Syringe) 25 ml Q15M PRN IV DECREASED GLUCOSE; Start 10/09/18 at 15:00 Dextrose (D50w Syringe) 50 ml Q15M PRN IV DECREASED GLUCOSE; Start 10/09/18 at 15:00 Glucagon (Glucagen) 1 mg Q15M PRN IM DECREASED GLUCOSE; Start 10/09/18 at 15:00 Glucose (Glutose) 15 gm Q15M PRN BUCCAL DECREASED GLUCOSE; Start 10/09/18 at 15:00 Sodium Chloride 500 ml @ 500 mls/hr Q1H PRN IV BLOOD PRESSURE SUPPORT Last administered on 10/10/18 07:59; Admin Dose 500 MLS/HR; Start 10/09/18 at 19:30 Albuterol (Ventolin Hfa) 4 puff Q6H RESP THERAPY INH Last administered on 10/30/18at 15:36; Admin Dose 4 PUFF; Start 10/10/18 at 02:00 Ipratropium [place] (Atrovent Hfa) 4 puff Q6H RESP THERAPY INH Last administered on 10/30/18 15:36; Admin Dose 4 PUFF; Start 10/10/18 at 02:00 Lorazepam (Ativan) 1 mg Q4H PRN GTB AGITATION/ANXIETY Last administered on 10/19/18 17:35; Admin Dose 1 MG; Start 10/14/18 at 13:00 Lisinopril (Zestril) 2.5 mg DAILY PO Last administered on 10/30/18 09:19; Admin Dose 2.5 MG; Start 10/15/18 at 09:00 Linagliptin (Tradjenta) 5 mg DAILY PO Last administered on 10/30/18 08:51; Admin Dose 5 MG; Start 10/16/18 at 10:30 Fentanyl (Duragesic 50 Mcg/Hr Patch) 1 patch Q72H TRANSDERM Last administered on 10/29/18 21:43; Admin Dose 1 PATCH; Start 10/17/18 at 20:30 Lorazepam (Ativan) 2 mg Q6H GTB Last administered on 10/30/18 15:29; Admin Dose 2 MG; Start 10/20/18 at 15:00 Quetiapine Fumarate (Seroquel) 100 mg BID GTB Last administered on 10/30/18 08:49; Admin Dose 100 MG; Start 10/21/18 at 21:00 Hydromorphone HCl (Dilaudid) 6 mg Q4H PRN PO MODERATE PAIN LEVEL 7-10 Last administered on 10/30/18 13:39; Admin Dose 6 MG; Start 10/21/18 at 22:00 Calcium Carbonate (Ca Carbonate) 1,250 mg QID GTB Last administered on 10/30/18 17:14; Admin Dose 1,250 MG; Start 10/24/18 at 13:00 Carvedilol (Coreg) 6.25 mg BID PO Last administered on 10/30/18 09:19; Admin Dose 6.25 MG; Start 10/27/18 at 21:00 Calcitriol (Rocaltrol) 1 mcg BID PO Last administered on 10/30/18 08:50; Admin Dose 1 MCG; Start 10/28/18 at 09:00 Sodium Chloride 1,000 ml @ 75 mls/hr [id number] IV Last administered on 10/30/18 15:29; Admin Dose 75 MLS/HR; Start 10/28/18 at 10:00 Metoprolol Tartrate (Lopressor) 5 mg Q4H PRN IV HR>110 Hold SBP<100; Start 10/28/18 at 12:30 CAMELIA VALENTINE MD Oct 30, 2018 17:54
[2018-10-31] VITALS (32 sets, daily range): BP systolic 82–139; BP diastolic 49–107; PULSE 92–125; RESP 17–34
[2018-10-31] MEDS: IPRATROPIUM (HFA) 12.9 GM INHALER INH SCH ×4 (01:22→20:00)
[2018-10-31] MEDS: ALBUTEROL HFA 8 GM INHALER INH SCH ×4 (01:22→20:00)
[2018-10-31] MEDS: INSULIN ASPART [NOVOLOG] 3 ML PEN SC SCH ×4 (01:43→20:00)
[2018-10-31] MEDS: ACCU-CHEK XX SCH (01:44)
[2018-10-31] MEDS: LORAZEPAM 1 MG TAB GTB SCH ×4 (03:33→20:22)
[2018-10-31] MEDS: SOD CHLORIDE 0.9% 500 ML IV PRN (03:35)
[2018-10-31] MEDS: SOD CHLORIDE 0.9% 1,000 ML IV SCH ×2 (03:39→18:04)
[2018-10-31] MEDS: LANSOPRAZOLE 30 MG CAP GTB SCH ×2 (06:13→18:03)
[2018-10-31] MEDS: GABAPENTIN (50 MG/ML PO SYG) GTB SCH ×3 (06:13→21:20)
[2018-10-31] MEDS: HYDROmorphONE 2 MG TAB PO PRN ×3 (06:52→20:25)
--- NOTE | 2018-10-31 07:18 | CONS ---
Assessment/Plan Assessment/Plan Hospital Course (Demo Recall) 53 yo male pt in [place] transferred to ICU for increased O2 demands Interval History-FiO2 60% and has episodes of desaturation. Ativan PO around the clock for anxiety. There isn't alot of stool from rectal tube, brown. 1. Respiratory failure secondary to pneumonia versus interstitial pneumonitis from rheumatoid arthritis versus mild aspiration. -on Bactrim 2. Severe rheumatoid arthritis. 3. Quadriplegia. 4. Adrenal insufficiency. 5. Gastroparesis. -Reglan, denies nausea 6. Hypothyroidism. 7. Chronic pain syndrome. 8. Hypertension. 9. 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 Leukocytosis secondary to steroids 11.ARDS 12. Anxiety -on PO ativan Swallow eval: Impression: Oropharyngeal dysphagia associated with reduced oropharyngeal strength/coordination, delayed timing of swallowing and reduced coordination of breath with swallow safety impacting swallow safety. Pt is not safe to initiate p.o intake and is at high risk of aspiration. Recommendation: 1. Initiate dysphagia therapy 3-5x per week for 1-2 weeks 2. Keep NPO+PEG tube feeds for primary means of nutrition/hydration/medication delivery 3. Anticipate need for in-line PMV evaluation one respiratory status improves and is stabilized 4. ongoing assessment and BOT and oropharyngeal strengthening exercises, aswell as pt/family education and counseling 5. Anticipate need for MBSS prior to initiation of p.o intake PLAN: Continue supportive ICU care Nothing by mouth per swallow eval results Continue with tube feeds check residuals q 4 hours Continue Reglan. Aspiration precautions. So far there is no evidence of aspiration. If anytime there is evidence of aspiration will convert G-tube to J-tube Pt examined and plan of care discussed with Dr. Minaya Consultation Date/Type/Reason Admit Date/Time Oct 09, 2018 at 12:16 Initial Consult Date 10/09/18 Requesting Provider: NOLA VIDAL MD Date/Time of Note DATE: 10/31/18 TIME: 07:16 Exam/Review of Systems Exam Vitals Vital Signs Date Temp Pulse Resp B/P (MAP) Pulse Ox O2 O2 Flow FiO2 Time Delivery Rate 10/31/18 105 23 109/77 95 Mechanical 06:00 (88) Ventilator 10/31/18 60 05:00 10/31/18 97.9 04:00 Intake and Output 10/30/18 10/30/18 10/31/18 1515:00 23:00 07:00 IntakeIntake Total 970 ml 935 ml 1368 ml OutputOutput Total 450 ml 360 ml 610 ml BalanceBalance 520 ml 575 ml 758 ml Results Result Diagram: 10/31/18 0430 10/31/18 0430 Results 24hrs Laboratory Tests Test 10/30/18 08:48 10/30/18 13:48 10/30/18 20:54 10/31/18 01:42 Bedside Glucose 93 150 134 124 Test 10/31/18 04:30 White Blood Count 20.5 H Red Blood Count 2.88 L Hemoglobin 8.3 L Hematocrit 27.9 L Mean Corpuscular 96.9 Volume Mean Corpuscular 28.8 L Hemoglobin Mean Corpuscular 29.7 L Hemoglobin Concent Red Cell 18.7 H Distribution Width Platelet Count 243 Mean Platelet Volume 12.1 H Immature 3.600 H Granulocytes % Neutrophils % 80.5 H Lymphocytes % 4.2 L Monocytes % 7.9 Eosinophils % 3.6 Basophils % 0.2 Nucleated Red Blood 0.0 Cells % Immature 0.740 H Granulocytes # Neutrophils # 16.5 H Lymphocytes # 0.9 Monocytes # 1.6 H Eosinophils # 0.7 H Basophils # 0.0 Nucleated Red Blood 0.0 Cells # Sodium Level 138 Potassium Level 3.8 Chloride Level 99 Carbon Dioxide Level 31 Anion Gap 8 Blood Urea Nitrogen 24 H Creatinine 0.33 L Est Glomerular > 60 Filtrat Rate mL/min Glucose Level 94 Calcium Level 6.8 L Medications Medication Current Medications Acetaminophen (Tylenol Liquid) 650 mg Q4H PRN GTB MILD PAIN(1-3)OR ELEVATED TEMP Last administered on 10/16/18at 07:52; Admin Dose 650 MG; Start 10/09/18 at 14:00 Al Hydrox/Mg Hydrox/Simethicone (Mag-Al Plus) 15 ml Q6H PRN PO GASTROINTESTINAL UPSET Last administered on 10/17/18 13:18; Admin Dose 15 ML; Start 10/09/18 at 14:00 Eye Lubricant (Artificial Tears Oph) 1 drop Q6H PRN BOTH EYES DRY EYES; Start 10/09/18 at 14:00 Bisacodyl (Dulcolax Supp) 10 mg DAILY PRN [place] CONSTIPATION; Start 10/09/18 at 14:00 Clonidine (Catapres) 0.1 mg DAILY PRN GTB ELEVATED BLOOD PRESSURE; Start 10/09/18 at 14:00 Diltiazem HCl (Cardizem Iv) 5 mg Q4 PRN IV ELEVATED HEART RATE Last administered on 10/18/18 01:09; Admin Dose 5 MG; Start 10/09/18 at 14:00 Diphenhydramine HCl (Benadryl Liquid Cup) 25 mg Q6 PRN GTB ITCHING Last administered on 10/22/18 20:25; Admin Dose 25 MG; Start 10/09/18 at 14:00 Duloxetine HCl (Cymbalta) 30 mg DAILY PO Last administered on 10/30/18 08:49; Admin Dose 30 MG; Start 10/10/18 at 09:00 Gabapentin (Neurontin Liquid) 400 mg Q8 GTB Last administered on 10/31/18 06:13; Admin Dose 400 MG; Start 10/09/18 at 15:30 Hydralazine HCl (Apresoline) 10 mg Q4H PRN IV ELEVATED BLOOD PRESSURE; Start 10/09/18 at 14:00 Hydroxychloroquine Sulfate (Plaquenil) 200 mg BID PO Last administered on 10/30/18 20:43; Admin Dose 200 MG; Start 10/09/18 at 21:00 Diagnostic Test (Pha) (Accu-Chek) 1 ea 02 XX Last administered on 10/31/18 01:44; Admin Dose 1 EA; Start 10/10/18 at 02:00 Insulin Aspart (Novolog Insulin Pen) NOVOLOG *CUSTOM* ALGORITHM Q6H SC Last administered on 10/29/18 20:36; Admin Dose 1 UNIT; Start 10/09/18 at 14:00 Lactobacillus Acidophilus (Florajen3 Capsule) 1 each BID GTB Last administered on 10/30/18 20:43; Admin Dose 1 EACH; Start 10/09/18 at 21:00 Lansoprazole (Prevacid) 30 mg BID@,18 GTB Last administered on 10/31/18 06:13; Admin Dose 30 MG; Start 10/09/18 at 18:00 Levetiracetam (Keppra Liquid) 500 mg BID GTB Last administered on 3/17/19at 20:44; Admin Dose 500 MG; Start 10/09/18 at 21:00 Magnesium Oxide (Mag-Ox 400) 400 mg BID GTB Last administered on 10/30/18 20:44; Admin Dose 400 MG; Start 10/09/18 at 21:00 Metoclopramide HCl (Reglan) 10 mg TID IV Last administered on 10/30/18 20:43; Admin Dose 10 MG; Start 10/09/18 at 21:00 Miconazole Nitrate (Miconazole 2% Cr) 1 applic BID TOP Last administered on 10/30/18 20:45; Admin Dose 1 APPLIC; Start 10/09/18 at 21:00 Miconazole Nitrate (Miconazole 2% Cr) 1 applic Q12 PRN TOP rash; Start 10/09/18 at 14:00 Ondansetron HCl (Zofran Inj) 4 mg Q4H PRN IV NAUSEA AND/OR VOMITING Last administered on 10/19/18at 16:37; Admin Dose 4 MG; Start 10/09/18 at 14:00 Polyethylene Glycol (Miralax) 17 gm DAILY PRN GTB CONSTIPATION; Start 10/09/18 at 14:00 Senna (Senokot) 2 tab Q8 PRN PO CONSTIPATION; Start 10/09/18 at 14:00 Trimethoprim/ Sulfamethoxazole (Bactrim Susp) 40 ml DAILY GTB Last administered on 10/30/18at 08:46; Admin Dose 40 ML; Start 10/10/18 at 09:00 Zolpidem Tartrate (Ambien) 5 mg HS PRN PO INSOMNIA Last administered on 10/21/18at 02:34; Admin Dose 5 MG; Start 10/09/18 at 14:00 Miscellaneous Information 1 ea NOTE XX ; Start 10/09/18 at 15:00 Glucose (Glutose) 15 gm Q15M PRN PO DECREASED GLUCOSE; Start 10/09/18 at 15:00 Glucose (Glutose) 22.5 gm Q15M PRN PO DECREASED GLUCOSE; Start 10/09/18 at 15:00 Dextrose (D50w Syringe) 25 ml Q15M PRN IV DECREASED GLUCOSE; Start 10/09/18 at 15:00 Dextrose (D50w Syringe) 50 ml Q15M PRN IV DECREASED GLUCOSE; Start 10/09/18 at 15:00 Glucagon (Glucagen) 1 mg Q15M PRN IM DECREASED GLUCOSE; Start 10/09/18 at 15:00 Glucose (Glutose) 15 gm Q15M PRN BUCCAL DECREASED GLUCOSE; Start 10/09/18 at 15:00 Sodium Chloride 500 ml @ 500 mls/hr Q1H PRN IV BLOOD PRESSURE SUPPORT Last administered on 10/31/18 03:35; Admin Dose 500 MLS/HR; Start 10/09/18 at 19:30 Albuterol (Ventolin Hfa) 4 puff Q6H RESP THERAPY INH Last administered on 10/31/18 01:22; Admin Dose 4 PUFF; Start 10/10/18 at 02:00 Ipratropium [place] (Atrovent Hfa) 4 puff Q6H RESP THERAPY INH Last administered on 10/31/18 01:22; Admin Dose 4 PUFF; Start 10/10/18 at 02:00 Lorazepam (Ativan) 1 mg Q4H PRN GTB AGITATION/ANXIETY Last administered on 10/19/18 17:35; Admin Dose 1 MG; Start 10/14/18 at 13:00 Lisinopril (Zestril) 2.5 mg DAILY PO Last administered on 10/30/18 09:19; Admin Dose 2.5 MG; Start 10/15/18 at 09:00 Linagliptin (Tradjenta) 5 mg DAILY PO Last administered on 10/30/18 08:51; Admin Dose 5 MG; Start 10/16/18 at 10:30 Fentanyl (Duragesic 50 Mcg/Hr Patch) 1 patch Q72H TRANSDERM Last administered on 10/29/18 21:43; Admin Dose 1 PATCH; Start 10/17/18 at 20:30 Lorazepam (Ativan) 2 mg Q6H GTB Last administered on 10/31/18 03:33; Admin Dose 2 MG; Start 10/20/18 at 15:00 Quetiapine Fumarate (Seroquel) 100 mg BID GTB Last administered on 10/30/18 20:43; Admin Dose 100 MG; Start 10/21/18 at 21:00 Hydromorphone HCl (Dilaudid) 6 mg Q4H PRN PO MODERATE PAIN LEVEL 7-10 Last administered on 10/31/18 06:52; Admin Dose 6 MG; Start 10/21/18 at 22:00 Calcium Carbonate (Ca Carbonate) 1,250 mg QID GTB Last administered on 10/30/18at 20:43; Admin Dose 1,250 MG; Start 10/24/18 at 13:00 Carvedilol (Coreg) 6.25 mg BID PO Last administered on 10/30/18 09:19; Admin Dose 6.25 MG; Start 10/27/18 at 21:00 Calcitriol (Rocaltrol) 1 mcg BID PO Last administered on 10/30/18at 20:45; Admin Dose 1 MCG; Start 10/28/18 at 09:00 Sodium Chloride 1,000 ml @ 75 mls/hr [id number] IV Last administered on 10/31/18at 03:39; Admin Dose 75 MLS/HR; Start 10/28/18 at 10:00 Metoprolol Tartrate (Lopressor) 5 mg Q4H PRN IV HR>110 Hold SBP<100; Start 10/28/18 at 12:30 MARYANN HACKETT Oct 31, 2018 07:18
[2018-10-31] MEDS: TRIMETHOPRIM/SULFAMETHOX (PO SYG) GTB SCH (08:20)
[2018-10-31] MEDS: METOCLOPRAMIDE 10 MG INJ IV SCH ×3 (08:20→20:22)
[2018-10-31] MEDS: LEVETIRACETAM (100 MG/ML) 5ML CUP GTB SCH ×2 (08:20→20:22)
[2018-10-31] MEDS: L ACIDOPHIL/B LACTIS/B LONGUM CAPSULE GTB SCH ×2 (08:20→20:22)
[2018-10-31] MEDS: CA CARBONATE (250 MG/ML) 5ML CUP GTB SCH ×4 (08:20→20:21)
[2018-10-31] MEDS: HYDROXYCHLOROQUINE 200 MG TAB PO SCH ×2 (08:21→20:22)
[2018-10-31] MEDS: DULOXETINE 30 MG CAP DR PO SCH (08:21)
[2018-10-31] MEDS: CALCITRIOL 0.5 MCG CAPSULE PO SCH ×2 (08:21→20:24)
[2018-10-31] MEDS: QUETIAPINE 100 MG TAB GTB SCH ×2 (08:21→20:22)
[2018-10-31] MEDS: LISINOPRIL 5 MG TAB PO SCH (08:21)
[2018-10-31] MEDS: LINAGLIPTIN 5 MG TABLET PO SCH (08:21)
--- NOTE | 2018-10-31 08:21 | PN ---
DATE: 10/31/2018 SUBJECTIVE: The patient is stable. No events overnight. No fevers, chills, nausea, or vomiting. OBJECTIVE: VITAL SIGNS: Blood pressure is 109/77, respirations 23, pulse 105, temperature 97.9. HEENT: Normocephalic. NECK: Supple. HEART: Regular rate. LUNGS: Show diminished breath sounds at the base. ABDOMEN: Soft, nontender to palpation without rebound or guarding. EXTREMITIES: Negative for clubbing, cyanosis, no edema. DERMATOLOGIC: No rashes. MUSCULOSKELETAL: No joint effusion. NEUROLOGIC: No change in exam. MEDICATIONS: The patient's medications have been reviewed. LABORATORY DATA: From 10/31/2018 was reviewed. ASSESSMENT AND PLAN: 1. Nonoliguric acute kidney injury with a previously normal baseline creatinine. Etiology of acute kidney injury is secondary to hemodynamics. Renal function has improved with supportive care. The p atient remains on IV fluids. We will consider discontinuing. 2. Hypernatremia. Etiology is multifactorial. The patient's sodium levels have improved. Continue current medical management. Continue to limit free water intake. 3. Hypomagnesemia. Continue to monitor and replete as needed. 4. Mineral bone disorder, monitor calcium and phosphorus levels. 5. Ventilator-dependent respiratory failure. Vent settings and ABG was reviewed. Continue to monit or. 6. Adrenal insufficiency. Continue Cortef. 7. Anemia. Continue to monitor hemoglobin and hematocrit levels. 8. Dysphagia. Continue tube feeding. 9. Sepsis secondary to pneumonia. The patient is completing antibiotic course. 10. Hypertension. Continue IV fluids. Blood pressures are improved. 11. Seizure disorder. Continue medical management. 12. Anxiety disorder. Continue anxiolytics. Dictated By: UNA ROY DO NR/NTS Conf#: [id number] DID#: [id number] CC: NOLA VIDAL MD; CAMELIA VALENTINE MD;*End*
[2018-10-31] MEDS: MAGNESIUM OXIDE 400 MG TAB GTB SCH ×2 (08:22→20:23)
[2018-10-31] MEDS: BALSAM PERU/CASTOR OIL 60 GM TUBE TOP SCH ×2 (08:23→20:24)
[2018-10-31] MEDS: MICONAZOLE 2% 30 GM CR TOP SCH ×2 (08:23→20:24)
--- NOTE | 2018-10-31 10:12 | CONS ---
Assessment/Plan Assessment/Plan Problems: (1) Hypocalcemia Onset Date: ~ 10/14/2018 Status: Acute Comment: His levels may need a little bit more adjustment. I will recheck him in the morning and follow him along. (2) Adrenal insufficiency due to steroid withdrawal Status: Chronic Comment: He has come off of high-dose steroid replacement therapy as of yesterday. I will put him back on standard dose replacement therapy now (3) Diabetes mellitus type 2 in nonobese Status: Chronic Comment: Adequate control at this time Consultation Date/Type/Reason Admit Date/Time Oct 09, 2018 at 12:16 Initial Consult Date 10/12/18 Type of Consult Endocrinology Reason for Consultation Calcium disturbance; adrenal insufficiency-iatrogenic; Requesting Provider: NOLA VIDAL MD Date/Time of Note DATE: 10/31/18 TIME: 10:10 24 HR Interval Summary Free Text/Dictation Patient remains marginally responsive at this time Exam/Review of Systems Exam Vitals Vital Signs Date Temp Pulse Resp B/P (MAP) Pulse Ox O2 O2 Flow FiO2 Time Delivery Rate 10/31/18 116 18 99/70 (80) 93 Mechanical 09:00 Ventilator 10/31/18 60 08:14 10/31/18 97.6 08:00 Intake and Output 10/30/18 10/30/18 10/31/18 1515:00 23:00 07:00 IntakeIntake Total 970 ml 935 ml 1368 ml OutputOutput Total 450 ml 360 ml 610 ml BalanceBalance 520 ml 575 ml 758 ml Exam Lying in bed in the ICU with his left arm propped up on pillows Respiratory: clear to auscultation, normal air movement Cardiovascular: regular rate and rhythm, nl pulses Results Result Diagram: 10/31/18 0430 10/31/18 0430 Results 24hrs Laboratory Tests Test 10/30/18 13:48 10/30/18 20:54 10/31/18 01:42 10/31/18 04:30 Bedside Glucose 150 134 124 White Blood Count 20.5 H Red Blood Count 2.88 L Hemoglobin 8.3 L Hematocrit 27.9 L Mean Corpuscular 96.9 Volume Mean Corpuscular 28.8 L Hemoglobin Mean Corpuscular 29.7 L Hemoglobin Concent Red Cell 18.7 H Distribution Width Platelet Count 243 Mean Platelet Volume 12.1 H Immature 3.600 H Granulocytes % Neutrophils % 80.5 H Lymphocytes % 4.2 L Monocytes % 7.9 Eosinophils % 3.6 Basophils % 0.2 Nucleated Red Blood 0.0 Cells % Immature 0.740 H Granulocytes # Neutrophils # 16.5 H Lymphocytes # 0.9 Monocytes # 1.6 H Eosinophils # 0.7 H Basophils # 0.0 Nucleated Red Blood 0.0 Cells # Sodium Level 138 Potassium Level 3.8 Chloride Level 99 Carbon Dioxide Level 31 Anion Gap 8 Blood Urea Nitrogen 24 H Creatinine 0.33 L Est Glomerular > 60 Filtrat Rate mL/min Glucose Level 94 Calcium Level 6.8 L Test 10/31/18 08:17 Bedside Glucose 109 Medications Medication Current Medications Acetaminophen (Tylenol Liquid) 650 mg Q4H PRN GTB MILD PAIN(1-3)OR ELEVATED TEMP Last administered on 10/16/18 07:52; Admin Dose 650 MG; Start 10/09/18 at 14:00 Al Hydrox/Mg Hydrox/Simethicone (Mag-Al Plus) 15 ml Q6H PRN PO GASTROINTESTINAL UPSET Last administered on 10/17/18 13:18; Admin Dose 15 ML; Start 10/09/18 at 14:00 Eye Lubricant (Artificial Tears Oph) 1 drop Q6H PRN BOTH EYES DRY EYES; Start 10/09/18 at 14:00 Bisacodyl (Dulcolax Supp) 10 mg DAILY PRN [place] CONSTIPATION; Start 10/09/18 at 14:00 Clonidine (Catapres) 0.1 mg DAILY PRN GTB ELEVATED BLOOD PRESSURE; Start 10/09/18 at 14:00 Diltiazem HCl (Cardizem Iv) 5 mg Q4 PRN IV ELEVATED HEART RATE Last administere d on 10/18/18 01:09; Admin Dose 5 MG; Start 10/09/18 at 14:00 Diphenhydramine HCl (Benadryl Liquid Cup) 25 mg Q6 PRN GTB ITCHING Last administered on 10/22/18 20:25; Admin Dose 25 MG; Start 10/09/18 at 14:00 Duloxetine HCl (Cymbalta) 30 mg DAILY PO Last administered on 10/31/18 08:21; Admin Dose 30 MG; Start 10/10/18 at 09:00 Gabapentin (Neurontin Liquid) 400 mg Q8 GTB Last administered on 10/31/18 06:13; Admin Dose 400 MG; Start 10/09/18 at 15:30 Hydralazine HCl (Apresoline) 10 mg Q4H PRN IV ELEVATED BLOOD PRESSURE; Start 10/09/18 at 14:00 Hydroxychloroquine Sulfate (Plaquenil) 200 mg BID PO Last administered on 10/31/18 08:21; Admin Dose 200 MG; Start 10/09/18 at 21:00 Diagnostic Test (Pha) (Accu-Chek) 1 ea 02 XX Last administered on 10/31/18 01:44; Admin Dose 1 EA; Start 10/10/18 at 02:00 Insulin Aspart (Novolog Insulin Pen) NOVOLOG *CUSTOM* ALGORITHM Q6H SC Last administered on 10/29/18 20:36; Admin Dose 1 UNIT; Start 10/09/18 at 14:00 Lactobacillus Acidophilus (Florajen3 Capsule) 1 each BID GTB Last administered on 10/31/18 08:20; Admin Dose 1 EACH; Start 10/09/18 at 21:00 Lansoprazole (Prevacid) 30 mg BID@18 GTB Last administered on 10/31/18 06:13; Admin Dose 30 MG; Start 10/09/18 at 18:00 Levetiracetam (Keppra Liquid) 500 mg BID GTB Last administered on 10/31/18 08:20; Admin Dose 500 MG; Start 10/09/18 at 21:00 Magnesium Oxide (Mag-Ox 400) 400 mg BID GTB Last administered on 10/31/18 08:22; Admin Dose 400 MG; Start 10/09/18 at 21:00 Metoclopramide HCl (Reglan) 10 mg TID IV Last administered on 10/31/18 08:20; Admin Dose 10 MG; Start 10/09/18 at 21:00 Miconazole Nitrate (Miconazole 2% Cr) 1 applic BID TOP Last administered on 10/31/18 08:23; Admin Dose 1 APPLIC; Start 10/09/18 at 21:00 Miconazole Nitrate (Miconazole 2% Cr) 1 applic Q12 PRN TOP rash; Start 10/09/18 at 14:00 Ondansetron HCl (Zofran Inj) 4 mg Q4H PRN IV NAUSEA AND/OR VOMITING Last administered on 10/19/18 16:37; Admin Dose 4 MG; Start 10/09/18 at 14:00 Polyethylene Glycol (Miralax) 17 gm DAILY PRN GTB CONSTIPATION; Start 10/09/18 at 14:00 Senna (Senokot) 2 tab Q8 PRN PO CONSTIPATION; Start 10/09/18 at 14:00 Trimethoprim/ Sulfamethoxazole (Bactrim Susp) 40 ml DAILY GTB Last administered on 10/31/18 08:20; Admin Dose 40 ML; Start 10/10/18 at 09:00 Zolpidem Tartrate (Ambien) 5 mg HS PRN PO INSOMNIA Last administered on 10/21/18 02:34; Admin Dose 5 MG; Start 10/09/18 at 14:00 Miscellaneous Information 1 ea NOTE XX ; Start 10/09/18 at 15:00 Glucose (Glutose) 15 gm Q15M PRN PO DECREASED GLUCOSE; Start 10/09/18 at 15:00 Glucose (Glutose) 22.5 gm Q15M PRN PO DECREASED GLUCOSE; Start 10/09/18 at 15:00 Dextrose (D50w Syringe) 25 ml Q15M PRN IV DECREASED GLUCOSE; Start 10/09/18 at 15:00 Dextrose (D50w Syringe) 50 ml Q15M PRN IV DECREASED GLUCOSE; Start 10/09/18 at 15:00 Glucagon (Glucagen) 1 mg Q15M PRN IM DECREASED GLUCOSE; Start 10/09/18 at 15:00 Glucose (Glutose) 15 gm Q15M PRN BUCCAL DECREASED GLUCOSE; Start 10/09/18 at 15:00 Sodium Chloride 500 ml @ 500 mls/hr Q1H PRN IV BLOOD PRESSURE SUPPORT Last administered on 10/31/18at 03:35; Admin Dose 500 MLS/HR; Start 10/09/18 at 19:30 Albuterol (Ventolin Hfa) 4 puff Q6H RESP THERAPY INH Last administered on 10/31/18 08:15; Admin Dose 4 PUFF; Start 10/10/18 at 02:00 Ipratropium [place] (Atrovent Hfa) 4 puff Q6H RESP THERAPY INH Last administered on 10/31/18 08:15; Admin Dose 4 PUFF; Start 10/10/18 at 02:00 Lorazepam (Ativan) 1 mg Q4H PRN GTB AGITATION/ANXIETY Last administered on 17:35; Admin Dose 1 MG; Start 10/14/18 at 13:00 Lisinopril (Zestril) 2.5 mg DAILY PO Last administered on 10/31/18 08:21; Admin Dose 2.5 MG; Start 10/15/18 at 09:00 Linagliptin (Tradjenta) 5 mg DAILY PO Last administered on 10/31/18 08:21; Admin Dose 5 MG; Start 10/16/18 at 10:30 Fentanyl (Duragesic 50 Mcg/Hr Patch) 1 patch Q72H TRANSDERM Last administered on 10/29/18 21:43; Admin Dose 1 PATCH; Start 10/17/18 at 20:30 Lorazepam (Ativan) 2 mg Q6H GTB Last administered on 10/31/18 08:21; Admin Dose 2 MG; Start 10/20/18 at 15:00 Quetiapine Fumarate (Seroquel) 100 mg BID GTB Last administered on 10/31/18 08:21; Admin Dose 100 MG; Start 10/21/18 at 21:00 Hydromorphone HCl (Dilaudid) 6 mg Q4H PRN PO MODERATE PAIN LEVEL 7-10 Last administered on 10/31/18 06:52; Admin Dose 6 MG; Start 10/21/18 at 22:00 Calcium Carbonate (Ca Carbonate) 1,250 mg QID GTB Last administered on 10/31/18 08:20; Admin Dose 1,250 MG; Start 10/24/18 at 13:00 Carvedilol (Coreg) 6.25 mg BID PO Last administered on 10/31/18 08:22; Admin Dose 6.25 MG; Start 10/27/18 at 21:00 Calcitriol (Rocaltrol) 1 mcg BID PO Last administered on 10/31/18 08:21; Admin Dose 1 MCG; Start 10/28/18 at 09:00 Sodium Chloride 1,000 ml @ 75 mls/hr [id number] IV Last administered on 10/31/18 03:39; Admin Dose 75 MLS/HR; Start 10/28/18 at 10:00 Metoprolol Tartrate (Lopressor) 5 mg Q4H PRN IV HR>110 Hold SBP<100; Start 10/28/18 at 12:30 Hydrocortisone (Cortef) 10 mg QAM PEG ; Start 10/31/18 at 10:30; Status UNV Hydrocortisone (Cortef) 5 mg AC DINNER PEG ; Start 10/31/18 at 17:05; Status UNV Hydrocortisone (Cortef) 2.5 mg QHS PEG ; Start 10/31/18 at 21:00; Status UNV KEV ISSA MD Oct 31, 2018 10:12
--- NOTE | 2018-10-31 10:37 | CONS ---
Assessment/Plan Cardiology Heart Failure Type: Acute on Chronic Heart Failure Type: Systolic Assessment/Plan Hospital Course (Demo Recall) IMPRESSION: 1. Tachycardia- S tach. [place] due to anxiety/infection/cardiomyopathy, multifactorial 2. Hypertension with borderline hypotension at this time. -still borderline Hotn 3. Abnormal electrocardiogram at baseline. 4. Chronic respiratory failure, status post tracheostomy.-weaning vent support 5. Dysphagia, status post G-tube. 6. Quadriplegia. 7. Renal insufficiency, on steroids. 8. Chronic obstructive pulmonary disease. 9. Rheumatoid arthritis. 10. Chronic kidney disease. 11. Diabetes mellitus. 12.Adrenal insufficiency 14. cardiomyopathy-EF 35-40% by echo this admit Recc -ICU -Vent support as necessary -Continue abx's and f/u cx data -continue steroids -Continue BB and OLAMIDE as tolerated only -dose digoxin IVP Consultation Date/Type/Reason Admit Date/Time Oct 09, 2018 at 12:16 Initial Consult Date 10/09/18 Type of Consult Cardiology Reason for Consultation cardiomyopathy Requesting Provider: NOLA VIDAL MD Date/Time of Note DATE: 10/31/18 TIME: 10:34 Exam/Review of Systems Vital Signs Vitals Vital Signs Date Temp Pulse Resp B/P (MAP) Pulse Ox O2 O2 Flow FiO2 Time Delivery Rate 10/31/18 116 18 99/70 (80) 93 Mechanical 09:00 Ventilator 10/31/18 60 08:14 10/31/18 97.6 08:00 Intake and Output 10/30/18 10/30/18 10/31/18 1515:00 23:00 07:00 IntakeIntake Total 970 ml 935 ml 1443 ml OutputOutput Total 450 ml 360 ml 610 ml BalanceBalance 520 ml 575 ml 833 ml Exam Exam Review of Systems: CONSTITUTIONAL: No fevers, chills. PULMONARY: trached CARDIOVASCULAR: No chest pain/palpitations GASTROINTESTINAL: No nausea/vomiting. GENITOURINARY: No hematuria/dysuria. MUSCULOSKELETAL: No myagias/arthalgias. PSYCHIATRIC: The patient denies depression. NEUROLOGIC: quadriplegic Constitutional: alert Psych: no complaints Head: normocephalic ENMT: mucosa pink and moist Neck: supple, jvd (9 cm water), other (trached) Respiratory: diminished breath sounds (at bases/B) Cardiovascular: other (tachycardic, regular rhythm) Labs Result Diagram: 10/31/18 0430 10/31/18 0430 Results 24hrs Laboratory Tests Test 10/30/18 13:48 10/30/18 20:54 10/31/18 01:42 10/31/18 04:30 Bedside Glucose 150 134 124 White Blood Count 20.5 H Red Blood Count 2.88 L Hemoglobin 8.3 L Hematocrit 27.9 L Mean Corpuscular 96.9 Volume Mean Corpuscular 28.8 L Hemoglobin Mean Corpuscular 29.7 L Hemoglobin Concent Red Cell 18.7 H Distribution Width Platelet Count 243 Mean Platelet Volume 12.1 H Immature 3.600 H Granulocytes % Neutrophils % 80.5 H Lymphocytes % 4.2 L Monocytes % 7.9 Eosinophils % 3.6 Basophils % 0.2 Nucleated Red Blood 0.0 Cells % Immature 0.740 H Granulocytes # Neutrophils # 16.5 H Lymphocytes # 0.9 Monocytes # 1.6 H Eosinophils # 0.7 H Basophils # 0.0 Nucleated Red Blood 0.0 Cells # Sodium Level 138 Potassium Level 3.8 Chloride Level 99 Carbon Dioxide Level 31 Anion Gap 8 Blood Urea Nitrogen 24 H Creatinine 0.33 L Est Glomerular > 60 Filtrat Rate mL/min Glucose Level 94 Calcium Level 6.8 L Test 10/31/18 08:17 Bedside Glucose 109 Medications Medications Current Medications Acetaminophen (Tylenol Liquid) 650 mg Q4H PRN GTB MILD PAIN(1-3)OR ELEVATED TEMP Last administered on 10/16/18at 07:52; Admin Dose 650 MG; Start 10/09/18 at 14:00 Al Hydrox/Mg Hydrox/Simethicone (Mag-Al Plus) 15 ml Q6H PRN PO GASTROINTESTINAL UPSET Last administered on 10/17/18at 13:18; Admin Dose 15 ML; Start 10/09/18 at 14:00 Eye Lubricant (Artificial Tears Oph) 1 drop Q6H PRN BOTH EYES DRY EYES; Start 10/09/18 at 14:00 Bisacodyl (Dulcolax Supp) 10 mg DAILY PRN [place] CONSTIPATION; Start 10/09/18 at 14:00 Clonidine (Catapres) 0.1 mg DAILY PRN GTB ELEVATED BLOOD PRESSURE; Start 10/09/18 at 14:00 Diltiazem HCl (Cardizem Iv) 5 mg Q4 PRN IV ELEVATED HEART RATE Last administered on 10/18/18 01:09; Admin Dose 5 MG; Start 10/09/18 at 14:00 Diphenhydramine HCl (Benadryl Liquid Cup) 25 mg Q6 PRN GTB ITCHING Last administered on 10/22/18 20:25; Admin Dose 25 MG; Start 10/09/18 at 14:00 Duloxetine HCl (Cymbalta) 30 mg DAILY PO Last administered on 10/31/18 08:21; Admin Dose 30 MG; Start 10/10/18 at 09:00 Gabapentin (Neurontin Liquid) 400 mg Q8 GTB Last administered on 10/31/18 06:13; Admin Dose 400 MG; Start 10/09/18 at 15:30 Hydralazine HCl (Apresoline) 10 mg Q4H PRN IV ELEVATED BLOOD PRESSURE; Start 10/09/18 at 14:00 Hydroxychloroquine Sulfate (Plaquenil) 200 mg BID PO Last administered on 10/31/18 08:21; Admin Dose 200 MG; Start 10/09/18 at 21:00 Diagnostic Test (Pha) (Accu-Chek) 1 ea 02 XX Last administered on 10/31/18 01:44; Admin Dose 1 EA; Start 10/10/18 at 02:00 Insulin Aspart (Novolog Insulin Pen) NOVOLOG *CUSTOM* ALGORITHM Q6H SC Last administered on 10/29/18 20:36; Admin Dose 1 UNIT; Start 10/09/18 at 14:00 Lactobacillus Acidophilus (Florajen3 Capsule) 1 each BID GTB Last administered on 10/31/18 08:20; Admin Dose 1 EACH; Start 10/09/18 at 21:00 Lansoprazole (Prevacid) 30 mg BID@ GTB Last administered on 10/31/18 06:13; Admin Dose 30 MG; Start 10/09/18 at 18:00 Levetiracetam (Keppra Liquid) 500 mg BID GTB Last administered on 10/31/18 08:20; Admin Dose 500 MG; Start 10/09/18 at 21:00 Magnesium Oxide (Mag-Ox 400) 400 mg BID GTB Last administered on 3/18/19at 08:22; Admin Dose 400 MG; Start 10/09/18 at 21:00 Metoclopramide HCl (Reglan) 10 mg TID IV Last administered on 10/31/18at 08:20; Admin Dose 10 MG; Start 10/09/18 at 21:00 Miconazole Nitrate (Miconazole 2% Cr) 1 applic BID TOP Last administered on 10/31/18at 08:23; Admin Dose 1 APPLIC; Start 10/09/18 at 21:00 Miconazole Nitrate (Miconazole 2% Cr) 1 applic Q12 PRN TOP rash; Start 10/09/18 at 14:00 Ondansetron HCl (Zofran Inj) 4 mg Q4H PRN IV NAUSEA AND/OR VOMITING Last administered on 10/19/18at 16:37; Admin Dose 4 MG; Start 10/09/18 at 14:00 Polyethylene Glycol (Miralax) 17 gm DAILY PRN GTB CONSTIPATION; Start 10/09/18 at 14:00 Senna (Senokot) 2 tab Q8 PRN PO CONSTIPATION; Start 10/09/18 at 14:00 Trimethoprim/ Sulfamethoxazole (Bactrim Susp) 40 ml DAILY GTB Last administered on 10/31/18at 08:20; Admin Dose 40 ML; Start 10/10/18 at 09:00 Zolpidem Tartrate (Ambien) 5 mg HS PRN PO INSOMNIA Last administered on 10/21/18at 02:34; Admin Dose 5 MG; Start 10/09/18 at 14:00 Miscellaneous Information 1 ea NOTE XX ; Start 10/09/18 at 15:00 Glucose (Glutose) 15 gm Q15M PRN PO DECREASED GLUCOSE; Start 10/09/18 at 15:00 Glucose (Glutose) 22.5 gm Q15M PRN PO DECREASED GLUCOSE; Start 10/09/18 at 15:00 Dextrose (D50w Syringe) 25 ml Q15M PRN IV DECREASED GLUCOSE; Start 10/09/18 at 15:00 Dextrose (D50w Syringe) 50 ml Q15M PRN IV DECREASED GLUCOSE; Start 10/09/18 at 15:00 Glucagon (Glucagen) 1 mg Q15M PRN IM DECREASED GLUCOSE; Start 10/09/18 at 15:00 Glucose (Glutose) 15 gm Q15M PRN BUCCAL DECREASED GLUCOSE; Start 10/09/18 at 15:00 Sodium Chloride 500 ml @ 500 mls/hr Q1H PRN IV BLOOD PRESSURE SUPPORT Last administered on 10/31/18 03:35; Admin Dose 500 MLS/HR; Start 10/09/18 at 19:30 Albuterol (Ventolin Hfa) 4 puff Q6H RESP THERAPY INH Last administered on 10/31/18 08:15; Admin Dose 4 PUFF; Start 10/10/18 at 02:00 Ipratropium [place] (Atrovent Hfa) 4 puff Q6H RESP THERAPY INH Last administered on 10/31/18 08:15; Admin Dose 4 PUFF; Start 10/10/18 at 02:00 Lorazepam (Ativan) 1 mg Q4H PRN GTB AGITATION/ANXIETY Last administered on 10/19/18 17:35; Admin Dose 1 MG; Start 10/14/18 at 13:00 Lisinopril (Zestril) 2.5 mg DAILY PO Last administered on 10/31/18 08:21; Admin Dose 2.5 MG; Start 10/15/18 at 09:00 Linagliptin (Tradjenta) 5 mg DAILY PO Last administered on 10/31/18 08:21; Admin Dose 5 MG; Start 10/16/18 at 10:30 Fentanyl (Duragesic 50 Mcg/Hr Patch) 1 patch Q72H TRANSDERM Last administered on 10/29/18 21:43; Admin Dose 1 PATCH; Start 10/17/18 at 20:30 Lorazepam (Ativan) 2 mg Q6H GTB Last administered on 10/31/18 08:21; Admin Dose 2 MG; Start 10/20/18 at 15:00 Quetiapine Fumarate (Seroquel) 100 mg BID GTB Last administered on 10/31/18 08:21; Admin Dose 100 MG; Start 10/21/18 at 21:00 Hydromorphone HCl (Dilaudid) 6 mg Q4H PRN PO MODERATE PAIN LEVEL 7-10 Last administered on 10/31/18 06:52; Admin Dose 6 MG; Start 10/21/18 at 22:00 Calcium Carbonate (Ca Carbonate) 1,250 mg QID GTB Last administered on 10/31/18 08:20; Admin Dose 1,250 MG; Start 10/24/18 at 13:00 Carvedilol (Coreg) 6.25 mg BID PO Last administered on 10/31/18at 08:22; Admin Dose 6.25 MG; Start 10/27/18 at 21:00 Calcitriol (Rocaltrol) 1 mcg BID PO Last administered on 10/31/18at 08:21; Admin Dose 1 MCG; Start 10/28/18 at 09:00 Sodium Chloride 1,000 ml @ 75 mls/hr [id number] IV Last administered on 10/31/18at 03:39; Admin Dose 75 MLS/HR; Start 10/28/18 at 10:00 Metoprolol Tartrate (Lopressor) 5 mg Q4H PRN IV HR>110 Hold SBP<100; Start 10/28/18 at 12:30 Hydrocortisone (Cortef) 10 mg QAM PEG ; Start 10/31/18 at 11:30 Hydrocortisone (Cortef) 5 mg AC DINNER PEG ; Start 10/31/18 at 17:05 Hydrocortisone (Cortef) 2.5 mg QHS PEG ; Start 10/31/18 at 21:00 BRISA HAQUE Oct 31, 2018 10:37
--- NOTE | 2018-10-31 10:51 | CONS ---
Consult Date/Type/Reason Admit Date/Time Oct 09, 2018 at 12:16 Initial Consult Date 10/09/18 Type of Consult Pulmonary Requesting Provider: NOLA VIDAL MD Date/Time of Note DATE: 10/31/18 TIME: 10:50 Subjective No significant changes. Continues FiO2 at60% PEEP of 8. Objective Vital Signs Date Temp Pulse Resp B/P (MAP) Pulse Ox O2 O2 Flow FiO2 Time Delivery Rate 10/31/18 116 18 99/70 (80) 93 Mechanical 09:00 Ventilator 10/31/18 60 08:14 10/31/18 97.6 08:00 Intake and Output 10/30/18 10/30/18 10/31/18 1515:00 23:00 07:00 IntakeIntake Total 970 ml 935 ml 1483 ml OutputOutput Total 450 ml 360 ml 660 ml BalanceBalance 520 ml 575 ml 823 ml Exam HEENT: Neck supple; no JVD; no LAD; + trach site clean CVS: RRR, S1 and S2 CHEST: Coarse BS b/l ABD: Soft, NT, + BS EXT: No c/c; tr edema Vent Setting Ventilator Support Mode: AC, VC plus Fraction of Inspired Oxygen pe: 60 Positive End Expiratory Pressu: 8.0 Results/Medications Result Diagram: 10/31/18 04310/31/18 0430 Results 24 hrs Laboratory Tests Test 10/30/18 13:48 10/30/18 20:54 10/31/18 01:42 10/31/18 04:30 Bedside Glucose 150 134 124 White Blood Count 20.5 H Red Blood Count 2.88 L Hemoglobin 8.3 L Hematocrit 27.9 L Mean Corpuscular 96.9 Volume Mean Corpuscular 28.8 L Hemoglobin Mean Corpuscular 29.7 L Hemoglobin Concent Red Cell 18.7 H Distribution Width Platelet Count 243 Mean Platelet Volume 12.1 H Immature 3.600 H Granulocytes % Neutrophils % 80.5 H Lymphocytes % 4.2 L Monocytes % 7.9 Eosinophils % 3.6 Basophils % 0.2 Nucleated Red Blood 0.0 Cells % Immature 0.740 H Granulocytes # Neutrophils # 16.5 H Lymphocytes # 0.9 Monocytes # 1.6 H Eosinophils # 0.7 H Basophils # 0.0 Nucleated Red Blood 0.0 Cells # Sodium Level 138 Potassium Level 3.8 Chloride Level 99 Carbon Dioxide Level 31 Anion Gap 8 Blood Urea Nitrogen 24 H Creatinine 0.33 L Est Glomerular > 60 Filtrat Rate mL/min Glucose Level 94 Calcium Level 6.8 L Test 10/31/18 08:17 Bedside Glucose 109 Medications Current Medications Acetaminophen (Tylenol Liquid) 650 mg Q4H PRN GTB MILD PAIN(1-3)OR ELEVATED TEMP Last administered on 10/16/18 07:52; Admin Dose 650 MG; Start 10/09/18 at 14:00 Al Hydrox/Mg Hydrox/Simethicone (Mag-Al Plus) 15 ml Q6H PRN PO GASTROINTESTINAL UPSET Last administered on 10/17/18 13:18; Admin Dose 15 ML; Start 10/09/18 at 14:00 Eye Lubricant (Artificial Tears Oph) 1 drop Q6H PRN BOTH EYES DRY EYES; Start 10/09/18 at 14:00 Bisacodyl (Dulcolax Supp) 10 mg DAILY PRN [place] CONSTIPATION; Start 10/09/18 at 14:00 Clonidine (Catapres) 0.1 mg DAILY PRN GTB ELEVATED BLOOD PRESSURE; Start 10/09/18 at 14:00 Diltiazem HCl (Cardizem Iv) 5 mg Q4 PRN IV ELEVATED HEART RATE Last administered on 10/18/18 01:09; Admin Dose 5 MG; Start 10/09/18 at 14:00 Diphenhydramine HCl (Benadryl Liquid Cup) 25 mg Q6 PRN GTB ITCHING Last administered on 10/22/18 20:25; Admin Dose 25 MG; Start 10/09/18 at 14:00 Duloxetine HCl (Cymbalta) 30 mg DAILY PO Last administered on 10/31/18 08:21; Admin Dose 30 MG; Start 10/10/18 at 09:00 Gabapentin (Neurontin Liquid) 400 mg Q8 GTB Last administered on 10/31/18 06:13; Admin Dose 400 MG; Start 10/09/18 at 15:30 Hydralazine HCl (Apresoline) 10 mg Q4H PRN IV ELEVATED BLOOD PRESSURE; Start 10/09/18 at 14:00 Hydroxychloroquine Sulfate (Plaquenil) 200 mg BID PO Last administered on 10/31/18 08:21; Admin Dose 200 MG; Start 10/09/18 at 21:00 Diagnostic Test (Pha) (Accu-Chek) 1 ea 02 XX Last administered on 10/31/18 01:44; Admin Dose 1 EA; Start 10/10/18 at 02:00 Insulin Aspart (Novolog Insulin Pen) NOVOLOG *CUSTOM* ALGORITHM Q6H SC Last administered on 10/29/18 20:36; Admin Dose 1 UNIT; Start 10/09/18 at 14:00 Lactobacillus Acidophilus (Florajen3 Capsule) 1 each BID GTB Last administered on 10/31/18 08:20; Admin Dose 1 EACH; Start 10/09/18 at 21:00 Lansoprazole (Prevacid) 30 mg BID@18 GTB Last administered on 10/31/18 06:13; Admin Dose 30 MG; Start 10/09/18 at 18:00 Levetiracetam (Keppra Liquid) 500 mg BID GTB Last administered on 10/31/18 08:20; Admin Dose 500 MG; Start 10/09/18 at 21:00 Magnesium Oxide (Mag-Ox 400) 400 mg BID GTB Last administered on 10/31/18 08:22; Admin Dose 400 MG; Start 10/09/18 at 21:00 Metoclopramide HCl (Reglan) 10 mg TID IV Last administered on 10/31/18 08:20; Admin Dose 10 MG; Start 10/09/18 at 21:00 Miconazole Nitrate (Miconazole 2% Cr) 1 applic BID TOP Last administered on 10/31/18 08:23; Admin Dose 1 APPLIC; Start 10/09/18 at 21:00 Miconazole Nitrate (Miconazole 2% Cr) 1 applic Q12 PRN TOP rash; Start 10/09/18 at 14:00 Ondansetron HCl (Zofran Inj) 4 mg Q4H PRN IV NAUSEA AND/OR VOMITING Last administered on 10/19/18 16:37; Admin Dose 4 MG; Start 10/09/18 at 14:00 Polyethylene Glycol (Miralax) 17 gm DAILY PRN GTB CONSTIPATION; Start 10/09/18 at 14:00 Senna (Senokot) 2 tab Q8 PRN PO CONSTIPATION; Start 10/09/18 at 14:00 Trimethoprim/ Sulfamethoxazole (Bactrim Susp) 40 ml DAILY GTB Last administered on 10/31/18 08:20; Admin Dose 40 ML; Start 10/10/18 at 09:00 Zolpidem Tartrate (Ambien) 5 mg HS PRN PO INSOMNIA Last administered on 02:34; Admin Dose 5 MG; Start 10/09/18 at 14:00 Miscellaneous Information 1 ea NOTE XX ; Start 10/09/18 at 15:00 Glucose (Glutose) 15 gm Q15M PRN PO DECREASED GLUCOSE; Start 10/09/18 at 15:00 Glucose (Glutose) 22.5 gm Q15M PRN PO DECREASED GLUCOSE; Start 10/09/18 at 15:00 Dextrose (D50w Syringe) 25 ml Q15M PRN IV DECREASED GLUCOSE; Start 10/09/18 at 15:00 Dextrose (D50w Syringe) 50 ml Q15M PRN IV DECREASED GLUCOSE; Start 10/09/18 at 15:00 Glucagon (Glucagen) 1 mg Q15M PRN IM DECREASED GLUCOSE; Start 10/09/18 at 15:00 Glucose (Glutose) 15 gm Q15M PRN BUCCAL DECREASED GLUCOSE; Start 10/09/18 at 15:00 Sodium Chloride 500 ml @ 500 mls/hr Q1H PRN IV BLOOD PRESSURE SUPPORT Last admi nistered on 10/31/18 03:35; Admin Dose 500 MLS/HR; Start 10/09/18 at 19:30 Albuterol (Ventolin Hfa) 4 puff Q6H RESP THERAPY INH Last administered on 10/31/18 08:15; Admin Dose 4 PUFF; Start 10/10/18 at 02:00 Ipratropium [place] (Atrovent Hfa) 4 puff Q6H RESP THERAPY INH Last administered on 10/31/18 08:15; Admin Dose 4 PUFF; Start 10/10/18 at 02:00 Lorazepam (Ativan) 1 mg Q4H PRN GTB AGITATION/ANXIETY Last administered on 10/19/18 17:35; Admin Dose 1 MG; Start 10/14/18 at 13:00 Lisinopril (Zestril) 2.5 mg DAILY PO Last administered on 10/31/18 08:21; Admin Dose 2.5 MG; Start 10/15/18 at 09:00 Linagliptin (Tradjenta) 5 mg DAILY PO Last administered on 10/31/18 08:21; Admin Dose 5 MG; Start 10/16/18 at 10:30 Fentanyl (Duragesic 50 Mcg/Hr Patch) 1 patch Q72H TRANSDERM Last administered on 10/29/18 21:43; Admin Dose 1 PATCH; Start 10/17/18 at 20:30 Lorazepam (Ativan) 2 mg Q6H GTB Last administered on 10/31/18 08:21; Admin Dose 2 MG; Start 10/20/18 at 15:00 Quetiapine Fumarate (Seroquel) 100 mg BID GTB Last administered on 10/31/18 08:21; Admin Dose 100 MG; Start 10/21/18 at 21:00 Hydromorphone HCl (Dilaudid) 6 mg Q4H PRN PO MODERATE PAIN LEVEL 7-10 Last administered on 10/31/18 06:52; Admin Dose 6 MG; Start 10/21/18 at 22:00 Calcium Carbonate (Ca Carbonate) 1,250 mg QID GTB Last administered on 10/31/18 08:20; Admin Dose 1,250 MG; Start 10/24/18 at 13:00 Carvedilol (Coreg) 6.25 mg BID PO Last administered on 10/31/18 08:22; Admin Dose 6.25 MG; Start 10/27/18 at 21:00 Calcitriol (Rocaltrol) 1 mcg BID PO Last administered on 10/31/18 08:21; Admin Dose 1 MCG; Start 10/28/18 at 09:00 Sodium Chloride 1,000 ml @ 75 mls/hr [id number] IV Last administered on 10/31/18 03:39; Admin Dose 75 MLS/HR; Start 10/28/18 at 10:00 Metoprolol Tartrate (Lopressor) 5 mg Q4H PRN IV HR>110 Hold SBP<100; Start 10/28/18 at 12:30 Hydrocortisone (Cortef) 10 mg QAM PEG ; Start 10/31/18 at 11:30 Hydrocortisone (Cortef) 5 mg AC DINNER PEG ; Start 10/31/18 at 17:05 Hydrocortisone (Cortef) 2.5 mg QHS PEG ; Start 10/31/18 at 21:00 Digoxin (Digoxin) 250 mcg ONCE ONCE IV ; Start 10/31/18 at 11:00; Stop 10/31/18 at 11:01 Assessment/Plan Hospital Course (Demo Recall) IMP: 1. Acute on chronic hypoxemic respiratory failure with underlying acute resp iratory distress syndrome. FiO2 increased to 60% with a PEEP of 8. 2. History of HSV esophagitis. 3. Chronic sepsis. 4. History of rheumatoid arthritis. 5. C-spine disease with functional quadriplegia. 6. Dysphagia with G-tube. PLAN: 1. Continue mechanical, decrease FiO2 as tolerated 2. Continue tube feeding 3. ID recommendations for antibiotics 4. PT eval as tolerated Palliative care recommendations Critical care time 40 minutes DALTON DURBIN MD, [facility] Oct 31, 2018 10:50
[2018-10-31] MEDS ORDERED: DIGOXIN 500 MCG INJ IV ONE (11:00)
[2018-10-31] MEDS: HYDROCORTISONE 5 MG TAB PEG SCH (11:32)
[2018-10-31] MEDS ORDERED: HYDROCORTISONE 5 MG TAB PEG SCH ×2 (17:05→21:00)
--- NOTE | 2018-10-31 17:32 | CONS ---
Assessment/Plan Assessment/Plan Hospital Course (Demo Recall) # sepsis, respiratory - recurrent sepsis on 10/08/2018 due to aspiration pneumonia, HCAP, improved - possible aspiration pneumonia, recurrent pneumonia due to citrobacter, improved - acute on chronic hypoxic and hypercarbic respiratory failure - persistent leukocytosis likely due to steroid margination - h/o tracheostomy on 08/26/2018 - h/o "Increased mild left apical pneumothorax" per CXR on 09/19/2018; no pneumothorax mentioned on subsequent CXR - h/o pneumomediastinum - h/o VAT on 08/11/2018 - h/o asthma/COPD exacerbation - h/o acute tracheobronchitis - h/o MAC infection but CT chest did not demonstrate features suggestive of this per chart review - On this admission AFB smear x3 have been negative (10/21/18 0600, 10/21/18 1530, and 10/22/18 0040), pneumocystis jiroveci 10/18/18 not detected. Coccioides screen negative. TB Quant Gold neg. - h/o HCAP due to citrobacter, based on resp culture on 09/13/2018 - h/o aspergillus growing out of resp culture per (pulm note by Dr. Lopez) on 07/25/2018 - h/o elevated 1,3 [id number] level = 232 on 08/06/2018 - h/o MSSA septicemia # GI - diarrhea, C diff on 10/09/2018 was negative - h/o HSV esophagitis, took acyclovir x21 days from 08/26/2018 - h/o EGD, esophageal biopsy showed esophageal squamous mucosa showing acute inflammation, granulation tissue, and ulceration consistent with ulcerative esophagitis, rare multinucleated cells with morphology suggestive of vial cytopathic changes, No cardiac mucosa, intestinal metaplasia, dysplasia, or malignancy defined - GERD - PUD # renal/ - Hypokalemia, recurrent - CKD 2 - BPH # cardiac - tachycardia, persistent - ACD - HTN - HLD # endo - T2DM - Hgb A1c 7.2% - secondary adrenal insufficiency; steroid dependent - Hypoparathyroidism - Hypercalcemia - Pamidronate was ordered # neuro - toxic metabolic encephalopathy - Cervical myopathy - Severe cervical spinal cord stenosis with cord compression from C3-C5, s/p laminectomy in ~03/2018 - Chronic pain syndrome - Functional quadriplegia - Seizure d/o # other chronic conditions - RA with chronic steroid dependence - Immunocompromised status - Fibromyalgia - DDD - H/o multiple rib fracture - Pt completed: meropenem (09/25/2018-10/02/2018), vancomycin (09/25/18-09/28/18), pip/tazo (10/09/2018-10/15/2018) Recommendations: - Pending: AFB culture x3 (AFB smear x3 have resulted negative) particular to r/o mycobacterium avium intracellulaire - Continue Bactrim for pneumocystis PPX - Continue to monitor off other systemic antibiotic Plan was d/w ARIANNA Graves and with Dr. Davila. Thank you Total critical care time spent: 40 minutes. Consultation Date/Type/Reason Admit Date/Time Oct 09, 2018 at 12:16 Initial Consult Date 10/12/18 Type of Consult ID Requesting Provider: NOLA VIDAL MD Date/Time of Note DATE: 10/31/18 TIME: 17:30 24 HR Interval Summary Free Text/Dictation Remains afebrile. At 60% fio2. No changes reported by nursing. Patient mouths "pain medication" when I ask ROS questions. Exam/Review of Systems Exam Vitals Vital Signs Date Temp Pulse Resp B/P (MAP) Pulse Ox O2 O2 Flow FiO2 Time Delivery Rate 10/31/18 112 22 95 60 16:45 10/31/18 98/78 (85) Mechanical 15:00 Ventilator 10/31/18 97.8 12:00 Intake and Output 10/30/18 10/30/18 10/31/18 1515:00 23:00 07:00 IntakeIntake Total 970 ml 935 ml 1483 ml OutputOutput Total 450 ml 360 ml 660 ml BalanceBalance 520 ml 575 ml 823 ml Allergies Coded Allergies No Known Allergy (Unverified10/12/18) Exam Constitutional: non-verbal, frail, other (awake, appears lethargic but is able to communicate by mouthing words) Head: normocephalic, atraumatic Eyes: nl conjunctiva, nl lids, nl sclera ENMT: nl external ears & nose, nl nasal mucosa & septum, mucosa pink and moist (OP exam limited) Neck: supple, non-tender, other (trach site is midline, site c/d/i, on vent, fio2 60%) Respiratory: normal air movement, diminished breath sounds Cardiovascular: regular rate and rhythm, nl pulses, other (RUE PICC site is c/d/i) Gastrointestinal: soft, non-tender, other (GT site is c/d/i, rectal tube in place with liquid stool draining) Male Genitourinary: other (condom catheter found off during assessment, RN is at bedside and will replace) Musculoskeletal: nl extremities to inspection Extremities: normal pulses Neurological: lethargic, other (eye tracks, follows simple commands, able to mouth words) Skin: nl turgor, other (stage II coccygeal ulcer); No rash or lesions Results Result Diagram: 10/31/18 0430 10/31/18 0430 Results 24hrs Laboratory Tests Test 10/30/18 20:54 10/31/18 01:42 10/31/18 04:30 10/31/18 08:17 Bedside Glucose 134 124 109 White Blood Count 20.5 H Red Blood Count 2.88 L Hemoglobin 8.3 L Hematocrit 27.9 L Mean Corpuscular 96.9 Volume Mean Corpuscular 28.8 L Hemoglobin Mean Corpuscular 29.7 L Hemoglobin Concent Red Cell 18.7 H Distribution Width Platelet Count 243 Mean Platelet Volume 12.1 H Immature 3.600 H Granulocytes % Neutrophils % 80.5 H Lymphocytes % 4.2 L Monocytes % 7.9 Eosinophils % 3.6 Basophils % 0.2 Nucleated Red Blood 0.0 Cells % Immature 0.740 H Granulocytes # Neutrophils # 16.5 H Lymphocytes # 0.9 Monocytes # 1.6 H Eosinophils # 0.7 H Basophils # 0.0 Nucleated Red Blood 0.0 Cells # Sodium Level 138 Potassium Level 3.8 Chloride Level 99 Carbon Dioxide Level 31 Anion Gap 8 Blood Urea Nitrogen 24 H Creatinine 0.33 L Est Glomerular > 60 Filtrat Rate mL/min Glucose Level 94 Calcium Level 6.8 L Test 10/31/18 13:35 Bedside Glucose 95 Imaging Imaging CXR 10/31/18 IMPRESSION: Increased diffuse bilateral interstitial infiltrate/edema. Mildly increased retrocardiac airspace consolidation. Medications Medication Current Medications Acetaminophen (Tylenol Liquid) 650 mg Q4H PRN GTB MILD PAIN(1-3)OR ELEVATED TEMP Last administered on 10/16/18 07:52; Admin Dose 650 MG; Start 10/09/18 at 14:00 Al Hydrox/Mg Hydrox/Simethicone (Mag-Al Plus) 15 ml Q6H PRN PO GASTROINTESTINAL UPSET Last administered on 10/17/18 13:18; Admin Dose 15 ML; Start 10/09/18 at 14:00 Eye Lubricant (Artificial Tears Oph) 1 drop Q6H PRN BOTH EYES DRY EYES; Start 10/09/18 at 14:00 Bisacodyl (Dulcolax Supp) 10 mg DAILY PRN ID CONSTIPATION; Start 10/09/18 at 14:00 Clonidine (Catapres) 0.1 mg DAILY PRN GTB ELEVATED BLOOD PRESSURE; Start 10/09/18 at 14:00 Diltiazem HCl (Cardizem Iv) 5 mg Q4 PRN IV ELEVATED HEART RATE Last administered on 10/18/18 01:09; Admin Dose 5 MG; Start 10/09/18 at 14:00 Diphenhydramine HCl (Benadryl Liquid Cup) 25 mg Q6 PRN GTB ITCHING Last administered on 10/22/18 20:25; Admin Dose 25 MG; Start 10/09/18 at 14:00 Duloxetine HCl (Cymbalta) 30 mg DAILY PO Last administered on 10/31/18 08:21; Admin Dose 30 MG; Start 10/10/18 at 09:00 Gabapentin (Neurontin Liquid) 400 mg Q8 GTB Last administered on 10/31/18 13:36; Admin Dose 400 MG; Start 10/09/18 at 15:30 Hydralazine HCl (Apresoline) 10 mg Q4H PRN IV ELEVATED BLOOD PRESSURE; Start 10/09/18 at 14:00 Hydroxychloroquine Sulfate (Plaquenil) 200 mg BID PO Last administered on 10/31/18 08:21; Admin Dose 200 MG; Start 10/09/18 at 21:00 Diagnostic Test (Pha) (Accu-Chek) 1 ea 02 XX Last administered on 10/31/18 01:44; Admin Dose 1 EA; Start 10/10/18 at 02:00 Insulin Aspart (Novolog Insulin Pen) NOVOLOG *CUSTOM* ALGORITHM Q6H SC Last administered on 10/29/18 20:36; Admin Dose 1 UNIT; Start 10/09/18 at 14:00 Lactobacillus Acidophilus (Florajen3 Capsule) 1 each BID GTB Last administered on 10/31/18 08:20; Admin Dose 1 EACH; Start 10/09/18 at 21:00 Lansoprazole (Prevacid) 30 mg BID@18 GTB Last administered on 10/31/18 06:13; Admin Dose 30 MG; Start 10/09/18 at 18:00 Levetiracetam (Keppra Liquid) 500 mg BID GTB Last administered on 10/31/18 08:20; Admin Dose 500 MG; Start 10/09/18 at 21:00 Magnesium Oxide (Mag-Ox 400) 400 mg BID GTB Last administered on 10/31/18 08:22; Admin Dose 400 MG; Start 10/09/18 at 21:00 Metoclopramide HCl (Reglan) 10 mg TID IV Last administered on 10/31/18 13:36; Admin Dose 10 MG; Start 10/09/18 at 21:00 Miconazole Nitrate (Miconazole 2% Cr) 1 applic BID TOP Last administered on 10/31/18 08:23; Admin Dose 1 APPLIC; Start 10/09/18 at 21:00 Miconazole Nitrate (Miconazole 2% Cr) 1 applic Q12 PRN TOP rash; Start 10/09/18 at 14:00 Ondansetron HCl (Zofran Inj) 4 mg Q4H PRN IV NAUSEA AND/OR VOMITING Last admi nistered on 10/19/18 16:37; Admin Dose 4 MG; Start 10/09/18 at 14:00 Polyethylene Glycol (Miralax) 17 gm DAILY PRN GTB CONSTIPATION; Start 10/09/18 at 14:00 Senna (Senokot) 2 tab Q8 PRN PO CONSTIPATION; Start 10/09/18 at 14:00 Trimethoprim/ Sulfamethoxazole (Bactrim Susp) 40 ml DAILY GTB Last administered on 10/31/18 08:20; Admin Dose 40 ML; Start 10/10/18 at 09:00 Zolpidem Tartrate (Ambien) 5 mg HS PRN PO INSOMNIA Last administered on 10/21/18 02:34; Admin Dose 5 MG; Start 10/09/18 at 14:00 Miscellaneous Information 1 ea NOTE XX ; Start 10/09/18 at 15:00 Glucose (Glutose) 15 gm Q15M PRN PO DECREASED GLUCOSE; Start 10/09/18 at 15:00 Glucose (Glutose) 22.5 gm Q15M PRN PO DECREASED GLUCOSE; Start 10/09/18 at 15:00 Dextrose (D50w Syringe) 25 ml Q15M PRN IV DECREASED GLUCOSE; Start 10/09/18 at 15:00 Dextrose (D50w Syringe) 50 ml Q15M PRN IV DECREASED GLUCOSE; Start 10/09/18 at 15:00 Glucagon (Glucagen) 1 mg Q15M PRN IM DECREASED GLUCOSE; Start 10/09/18 at 15:00 Glucose (Glutose) 15 gm Q15M PRN BUCCAL DECREASED GLUCOSE; Start 10/09/18 at 15:00 Sodium Chloride 500 ml @ 500 mls/hr Q1H PRN IV BLOOD PRESSURE SUPPORT Last administered on 10/31/18 03:35; Admin Dose 500 MLS/HR; Start 10/09/18 at 19:30 Albuterol (Ventolin Hfa) 4 puff Q6H RESP THERAPY INH Last administered on 13:27; Admin Dose 4 PUFF; Start 10/10/18 at 02:00 Ipratropium [place] (Atrovent Hfa) 4 puff Q6H RESP THERAPY INH Last administered on 10/31/18 13:27; Admin Dose 4 PUFF; Start 10/10/18 at 02:00 Lorazepam (Ativan) 1 mg Q4H PRN GTB AGITATION/ANXIETY Last administered on 10/19/18 17:35; Admin Dose 1 MG; Start 10/14/18 at 13:00 Lisinopril (Zestril) 2.5 mg DAILY PO Last administered on 10/31/18 08:21; Admin Dose 2.5 MG; Start 10/15/18 at 09:00 Linagliptin (Tradjenta) 5 mg DAILY PO Last administered on 10/31/18 08:21; Admin Dose 5 MG; Start 10/16/18 at 10:30 Fentanyl (Duragesic 50 Mcg/Hr Patch) 1 patch Q72H TRANSDERM Last administered on 10/29/18at 21:43; Admin Dose 1 PATCH; Start 10/17/18 at 20:30 Lorazepam (Ativan) 2 mg Q6H GTB Last administered on 10/31/18 16:07; Admin Dose 2 MG; Start 10/20/18 at 15:00 Quetiapine Fumarate (Seroquel) 100 mg BID GTB Last administered on 10/31/18 08:21; Admin Dose 100 MG; Start 10/21/18 at 21:00 Hydromorphone HCl (Dilaudid) 6 mg Q4H PRN PO MODERATE PAIN LEVEL 7-10 Last administered on 10/31/18 06:52; Admin Dose 6 MG; Start 10/21/18 at 22:00 Calcium Carbonate (Ca Carbonate) 1,250 mg QID GTB Last administered on 10/31/18 16:07; Admin Dose 1,250 MG; Start 10/24/18 at 13:00 Carvedilol (Coreg) 6.25 mg BID PO Last administered on 10/31/18 08:22; Admin Dose 6.25 MG; Start 10/27/18 at 21:00 Calcitriol (Rocaltrol) 1 mcg BID PO Last administered on 10/31/18 08:21; Admin Dose 1 MCG; Start 10/28/18 at 09:00 Sodium Chloride 1,000 ml @ 75 mls/hr [id number] IV Last administered on 10/31/18 03:39; Admin Dose 75 MLS/HR; Start 10/28/18 at 10:00 Metoprolol Tartrate (Lopressor) 5 mg Q4H PRN IV HR>110 Hold SBP<100; Start 10/28/18 at 12:30 Hydrocortisone (Cortef) 10 mg QAM PEG Last administered on 10/31/18 11:32; Admin Dose 10 MG; Start 10/31/18 at 11:30 Hydrocortisone (Cortef) 5 mg AC DINNER PEG Last administered on 10/31/18 16:07; Admin Dose 5 MG; Start 10/31/18 at 17:05 Hydrocortisone (Cortef) 2.5 mg QHS PEG ; Start 10/31/18 at 21:00 STEVE MOSCOSO NP Oct 31, 2018 17:32
--- NOTE | 2018-10-31 18:22 | PN ---
Date/Time of Note Date/Time of Note DATE: 10/31/18 TIME: 18:20 Assessment/Plan VTE Prophylaxis Risk score (from Ns)>0 risk: 9 SCD applied (from [facility] – [place], [place]): Yes Pharmacological prophylaxis: NA/contraindicated Pharm contraindication: bleeding Lines/Catheters [facility] Mid Line Urinary Cath still in place: No Assessment/Plan Hospital Course Patient continues on ventilatory support, FiO2 60% and PEEP of 8. Assessment/Plan - Acute on chronic hypoxemic respiratory failure with underlying ARDS, continue ventilatory support. Dr. Villa is following in pulmonology consultation. - Acute kidney injury, continue to monitor BUN and creatinine. G-tube feeding changed to renal source. Dr. Hobson is following in nephrology consultation. -Tachycardia, Dr. Joshi is following in cardiology consultation. - Cardiomyopathy with EF 35-40% - Rheumatoid arthritis with steroid dependence. The patient's pain seems to be controlled with the current dose of fentanyl. - Dysphagia. Continue GT feeding. - Anemia of chronic disease. - Hypoparathyroidism with recent hypercalcemia, status post pamidronate. - Hypertension. - Functional quadriplegia - Hx of severe cervical spinal cord stenosis with cord compression from C3-C5, s /p laminectomy. - History of fibromyalgia rheumatica - Hx of VAT on 08/11/2018 - Poor prognosis, Dr. Zurita is asked to see patient in palliative care consultation. Critical care time spent 30 minutes. Further recommendations based on clinical course. Plan of care discussed with Dr. Rosales Result Diagram: 10/31/18 0430 10/31/18 0430 Results 24hrs Laboratory Tests Test 10/30/18 20:54 10/31/18 01:42 10/31/18 04:30 10/31/18 08:17 Bedside Glucose 134 124 109 White Blood Count 20.5 H Red Blood Count 2.88 L Hemoglobin 8.3 L Hematocrit 27.9 L Mean Corpuscular 96.9 Volume Mean Corpuscular 28.8 L Hemoglobin Mean Corpuscular 29.7 L Hemoglobin Concent Red Cell 18.7 H Distribution Width Platelet Count 243 Mean Platelet Volume 12.1 H Immature 3.600 H Granulocytes % Neutrophils % 80.5 H Lymphocytes % 4.2 L Monocytes % 7.9 Eosinophils % 3.6 Basophils % 0.2 Nucleated Red Blood 0.0 Cells % Immature 0.740 H Granulocytes # Neutrophils # 16.5 H Lymphocytes # 0.9 Monocytes # 1.6 H Eosinophils # 0.7 H Basophils # 0.0 Nucleated Red Blood 0.0 Cells # Sodium Level 138 Potassium Level 3.8 Chloride Level 99 Carbon Dioxide Level 31 Anion Gap 8 Blood Urea Nitrogen 24 H Creatinine 0.33 L Est Glomerular > 60 Filtrat Rate mL/min Glucose Level 94 Calcium Level 6.8 L Test 10/31/18 13:35 Bedside Glucose 95 Exam/Review of Systems Exam Vitals Vital Signs Date Temp Pulse Resp B/P (MAP) Pulse Ox O2 O2 Flow FiO2 Time Delivery Rate 10/31/18 113 26 95/71 (79) 95 Mechanical 17:00 Ventilator 10/31/18 60 16:45 10/31/18 97.6 16:00 Intake and Output 10/30/18 10/30/18 10/31/18 1515:00 23:00 07:00 IntakeIntake Total 970 ml 935 ml 1483 ml OutputOutput Total 450 ml 360 ml 660 ml BalanceBalance 520 ml 575 ml 823 ml Exam Constitutional: alert, oriented, frail Neck: other (trach) Respiratory: diminished breath sounds Cardiovascular: regular rate and rhythm Gastrointestinal: soft, non-tender, other Neurological: nl mental status Results Results 24hrs Laboratory Tests Test 10/30/18 20:54 10/31/18 01:42 10/31/18 04:30 10/31/18 08:17 Bedside Glucose 134 124 109 White Blood Count 20.5 H Red Blood Count 2.88 L Hemoglobin 8.3 L Hematocrit 27.9 L Mean Corpuscular 96.9 Volume Mean Corpuscular 28.8 L Hemoglobin Mean Corpuscular 29.7 L Hemoglobin Concent Red Cell 18.7 H Distribution Width Platelet Count 243 Mean Platelet Volume 12.1 H Immature 3.600 H Granulocytes % Neutrophils % 80.5 H Lymphocytes % 4.2 L Monocytes % 7.9 Eosinophils % 3.6 Basophils % 0.2 Nucleated Red Blood 0.0 Cells % Immature 0.740 H Granulocytes # Neutrophils # 16.5 H Lymphocytes # 0.9 Monocytes # 1.6 H Eosinophils # 0.7 H Basophils # 0.0 Nucleated Red Blood 0.0 Cells # Sodium Level 138 Potassium Level 3.8 Chloride Level 99 Carbon Dioxide Level 31 Anion Gap 8 Blood Urea Nitrogen 24 H Creatinine 0.33 L Est Glomerular > 60 Filtrat Rate mL/min Glucose Level 94 Calcium Level 6.8 L Test 10/31/18 13:35 Bedside Glucose 95 Medications Medication Current Medications Acetaminophen (Tylenol Liquid) 650 mg Q4H PRN GTB MILD PAIN(1-3)OR ELEVATED TEMP Last administered on 10/16/18 07:52; Admin Dose 650 MG; Start 10/09/18 at 14:00 Al Hydrox/Mg Hydrox/Simethicone (Mag-Al Plus) 15 ml Q6H PRN PO GASTROINTESTINAL UPSET Last administered on 10/17/18 13:18; Admin Dose 15 ML; Start 10/09/18 at 14:00 Eye Lubricant (Artificial Tears Oph) 1 drop Q6H PRN BOTH EYES DRY EYES; Start 10/09/18 at 14:00 Bisacodyl (Dulcolax Supp) 10 mg DAILY PRN CO CONSTIPATION; Start 10/09/18 at 14:00 Clonidine (Catapres) 0.1 mg DAILY PRN GTB ELEVATED BLOOD PRESSURE; Start 10/09/18 at 14:00 Diltiazem HCl (Cardizem Iv) 5 mg Q4 PRN IV ELEVATED HEART RATE Last administered on 10/18/18 01:09; Admin Dose 5 MG; Start 10/09/18 at 14:00 Diphenhydramine HCl (Benadryl Liquid Cup) 25 mg Q6 PRN GTB ITCHING Last administered on 10/22/18 20:25; Admin Dose 25 MG; Start 10/09/18 at 14:00 Duloxetine HCl (Cymbalta) 30 mg DAILY PO Last administered on 10/31/18 08:21; Admin Dose 30 MG; Start 10/10/18 at 09:00 Gabapentin (Neurontin Liquid) 400 mg Q8 GTB Last administered on 10/31/18 13:36; Admin Dose 400 MG; Start 10/09/18 at 15:30 Hydralazine HCl (Apresoline) 10 mg Q4H PRN IV ELEVATED BLOOD PRESSURE; Start 10/09/18 at 14:00 Hydroxychloroquine Sulfate (Plaquenil) 200 mg BID PO Last administered on 10/31/18 08:21; Admin Dose 200 MG; Start 10/09/18 at 21:00 Diagnostic Test (Pha) (Accu-Chek) 1 ea 02 XX Last administered on 10/31/18 01:44; Admin Dose 1 EA; Start 10/10/18 at 02:00 Insulin Aspart (Novolog Insulin Pen) NOVOLOG *CUSTOM* ALGORITHM Q6H SC Last administered on 10/29/18 20:36; Admin Dose 1 UNIT; Start 10/09/18 at 14:00 Lactobacillus Acidophilus (Florajen3 Capsule) 1 each BID GTB Last administered on 10/31/18 08:20; Admin Dose 1 EACH; Start 10/09/18 at 21:00 Lansoprazole (Prevacid) 30 mg BID@,18 GTB Last administered on 10/31/18 18 :03; Admin Dose 30 MG; Start 10/09/18 at 18:00 Levetiracetam (Keppra Liquid) 500 mg BID GTB Last administered on 10/31/18 08:20; Admin Dose 500 MG; Start 10/09/18 at 21:00 Magnesium Oxide (Mag-Ox 400) 400 mg BID GTB Last administered on 10/31/18 08:22; Admin Dose 400 MG; Start 10/09/18 at 21:00 Metoclopramide HCl (Reglan) 10 mg TID IV Last administered on 10/31/18 13:36; Admin Dose 10 MG; Start 10/09/18 at 21:00 Miconazole Nitrate (Miconazole 2% Cr) 1 applic BID TOP Last administered on 08:23; Admin Dose 1 APPLIC; Start 10/09/18 at 21:00 Miconazole Nitrate (Miconazole 2% Cr) 1 applic Q12 PRN TOP rash; Start 10/09/18 at 14:00 Ondansetron HCl (Zofran Inj) 4 mg Q4H PRN IV NAUSEA AND/OR VOMITING Last administered on 10/19/18 16:37; Admin Dose 4 MG; Start 10/09/18 at 14:00 Polyethylene Glycol (Miralax) 17 gm DAILY PRN GTB CONSTIPATION; Start 10/09/18 at 14:00 Senna (Senokot) 2 tab Q8 PRN PO CONSTIPATION; Start 10/09/18 at 14:00 Trimethoprim/ Sulfamethoxazole (Bactrim Susp) 40 ml DAILY GTB Last administered on 10/31/18 08:20; Admin Dose 40 ML; Start 10/10/18 at 09:00 Zolpidem Tartrate (Ambien) 5 mg HS PRN PO INSOMNIA Last administered on 10/21/18 02:34; Admin Dose 5 MG; Start 10/09/18 at 14:00 Miscellaneous Information 1 ea NOTE XX ; Start 10/09/18 at 15:00 Glucose (Glutose) 15 gm Q15M PRN PO DECREASED GLUCOSE; Start 10/09/18 at 15:00 Glucose (Glutose) 22.5 gm Q15M PRN PO DECREASED GLUCOSE; Start 10/09/18 at 15:00 Dextrose (D50w Syringe) 25 ml Q15M PRN IV DECREASED GLUCOSE; Start 10/09/18 at 15:00 Dextrose (D50w Syringe) 50 ml Q15M PRN IV DECREASED GLUCOSE; Start 10/09/18 at 15:00 Glucagon (Glucagen) 1 mg Q15M PRN IM DECREASED GLUCOSE; Start 10/09/18 at 15:00 Glucose (Glutose) 15 gm Q15M PRN BUCCAL DECREASED GLUCOSE; Start 10/09/18 at 15:00 Sodium Chloride 500 ml @ 500 mls/hr Q1H PRN IV BLOOD PRESSURE SUPPORT Last administered on 10/31/18 03:35; Admin Dose 500 MLS/HR; Start 10/09/18 at 19:30 Albuterol (Ventolin Hfa) 4 puff Q6H RESP THERAPY INH Last administered on 10/31/18 13:27; Admin Dose 4 PUFF; Start 10/10/18 at 02:00 Ipratropium [place] (Atrovent Hfa) 4 puff Q6H RESP THERAPY INH Last administered on 10/31/18 13:27; Admin Dose 4 PUFF; Start 10/10/18 at 02:00 Lorazepam (Ativan) 1 mg Q4H PRN GTB AGITATION/ANXIETY Last administered on 10/19/18 17:35; Admin Dose 1 MG; Start 10/14/18 at 13:00 Lisinopril (Zestril) 2.5 mg DAILY PO Last administered on 10/31/18 08:21; Admin Dose 2.5 MG; Start 10/15/18 at 09:00 Linagliptin (Tradjenta) 5 mg DAILY PO Last administered on 10/31/18 08:21; Admin Dose 5 MG; Start 10/16/18 at 10:30 Fentanyl (Duragesic 50 Mcg/Hr Patch) 1 patch Q72H TRANSDERM Last administered on 10/29/18 21:43; Admin Dose 1 PATCH; Start 10/17/18 at 20:30 Lorazepam (Ativan) 2 mg Q6H GTB Last administered on 10/31/18 16:07; Admin Dose 2 MG; Start 10/20/18 at 15:00 Quetiapine Fumarate (Seroquel) 100 mg BID GTB Last administered on 10/31/18 08:21; Admin Dose 100 MG; Start 10/21/18 at 21:00 Hydromorphone HCl (Dilaudid) 6 mg Q4H PRN PO MODERATE PAIN LEVEL 7-10 Last administered on 10/31/18 06:52; Admin Dose 6 MG; Start 10/21/18 at 22:00 Calcium Carbonate (Ca Carbonate) 1,250 mg QID GTB Last administered on 10/31/18 16:07; Admin Dose 1,250 MG; Start 10/24/18 at 13:00 Carvedilol (Coreg) 6.25 mg BID PO Last administered on 10/31/18 08:22; Admin Dose 6.25 MG; Start 10/27/18 at 21:00 Calcitriol (Rocaltrol) 1 mcg BID PO Last administered on 10/31/18 08:21; Admin Dose 1 MCG; Start 10/28/18 at 09:00 Sodium Chloride 1,000 ml @ 75 mls/hr [id number] IV Last administered on 10/31/18 18:04; Admin Dose 75 MLS/HR; Start 10/28/18 at 10:00 Metoprolol Tartrate (Lopressor) 5 mg Q4H PRN IV HR>110 Hold SBP<100; Start 10/28/18 at 12:30 Hydrocortisone (Cortef) 10 mg QAM PEG Last administered on 10/31/18 11:32; Admin Dose 10 MG; Start 10/31/18 at 11:30 Hydrocortisone (Cortef) 5 mg AC DINNER PEG Last administered on 10/31/18 16:07; Admin Dose 5 MG; Start 10/31/18 at 17:05 Hydrocortisone (Cortef) 2.5 mg QHS PEG ; Start 10/31/18 at 21:00 CAROLYN LANGLEY Oct 31, 2018 18:22
--- NOTE | 2018-10-31 20:45 | CONS ---
Consultation Date/Type/Reason Admit Date/Time Oct 09, 2018 at 12:16 Initial Consult Date 10/12/18 Requesting Provider: NOLA VIDAL MD Date/Time of Note DATE: 10/31/18 TIME: 20:45 Exam/Review of Systems Exam Vitals Vital Signs Date Temp Pulse Resp B/P (MAP) Pulse Ox O2 O2 Flow FiO2 Time Delivery Rate 10/31/18 123 20:00 10/31/18 28 120/78 96 Mechanical 19:00 (92) Ventilator 10/31/18 60 16:45 10/31/18 97.6 16:00 Intake and Output 10/30/18 10/30/18 10/31/18 1515:00 23:00 07:00 IntakeIntake Total 970 ml 935 ml 1483 ml OutputOutput Total 450 ml 360 ml 660 ml BalanceBalance 520 ml 575 ml 823 ml Results Result Diagram: 10/31/18 0430 10/31/18 0430 Results 24hrs Laboratory Tests Test 10/30/18 20:54 10/31/18 01:42 10/31/18 04:30 10/31/18 08:17 Bedside Glucose 134 124 109 White Blood Count 20.5 H Red Blood Count 2.88 L Hemoglobin 8.3 L Hematocrit 27.9 L Mean Corpuscular 96.9 Volume Mean Corpuscular 28.8 L Hemoglobin Mean Corpuscular 29.7 L Hemoglobin Concent Red Cell 18.7 H Distribution Width Platelet Count 243 Mean Platelet Volume 12.1 H Immature 3.600 H Granulocytes % Neutrophils % 80.5 H Lymphocytes % 4.2 L Monocytes % 7.9 Eosinophils % 3.6 Basophils % 0.2 Nucleated Red Blood 0.0 Cells % Immature 0.740 H Granulocytes # Neutrophils # 16.5 H Lymphocytes # 0.9 Monocytes # 1.6 H Eosinophils # 0.7 H Basophils # 0.0 Nucleated Red Blood 0.0 Cells # Sodium Level 138 Potassium Level 3.8 Chloride Level 99 Carbon Dioxide Level 31 Anion Gap 8 Blood Urea Nitrogen 24 H Creatinine 0.33 L Est Glomerular > 60 Filtrat Rate mL/min Glucose Level 94 Calcium Level 6.8 L Test 10/31/18 13:35 10/31/18 20:20 Bedside Glucose 95 114 Medications Medication Current Medications Acetaminophen (Tylenol Liquid) 650 mg Q4H PRN GTB MILD PAIN(1-3)OR ELEVATED TEMP Last administered on 10/16/18 07:52; Admin Dose 650 MG; Start 10/09/18 at 14:00 Al Hydrox/Mg Hydrox/Simethicone (Mag-Al Plus) 15 ml Q6H PRN PO GASTROINTESTINAL UPSET Last administered on 10/17/18 13:18; Admin Dose 15 ML; Start 10/09/18 at 14:00 Eye Lubricant (Artificial Tears Oph) 1 drop Q6H PRN BOTH EYES DRY EYES; Start 10/09/18 at 14:00 Bisacodyl (Dulcolax Supp) 10 mg DAILY PRN [place] CONSTIPATION; Start 10/09/18 at 14:00 Clonidine (Catapres) 0.1 mg DAILY PRN GTB ELEVATED BLOOD PRESSURE; Start 10/09/18 at 14:00 Diltiazem HCl (Cardizem Iv) 5 mg Q4 PRN IV ELEVATED HEART RATE Last administered on 10/18/18 01:09; Admin Dose 5 MG; Start 10/09/18 at 14:00 Diphenhydramine HCl (Benadryl Liquid Cup) 25 mg Q6 PRN GTB ITCHING Last administered on 10/22/18 20:25; Admin Dose 25 MG; Start 10/09/18 at 14:00 Duloxetine HCl (Cymbalta) 30 mg DAILY PO Last administered on 10/31/18 08:21; Admin Dose 30 MG; Start 10/10/18 at 09:00 Gabapentin (Neurontin Liquid) 400 mg Q8 GTB Last administered on 10/31/18 13:36; Admin Dose 400 MG; Start 10/09/18 at 15:30 Hydralazine HCl (Apresoline) 10 mg Q4H PRN IV ELEVATED BLOOD PRESSURE; Start 10/09/18 at 14:00 Hydroxychloroquine Sulfate (Plaquenil) 200 mg BID PO Last administered on 10/31/18 20:22; Admin Dose 200 MG; Start 10/09/18 at 21:00 Diagnostic Test (Pha) (Accu-Chek) 1 ea 02 XX Last administered on 10/31/18at 01:44; Admin Dose 1 EA; Start 10/10/18 at 02:00 Insulin Aspart (Novolog Insulin Pen) NOVOLOG *CUSTOM* ALGORITHM Q6H SC Last administered on 10/29/18 20:36; Admin Dose 1 UNIT; Start 10/09/18 at 14:00 Lactobacillus Acidophilus (Florajen3 Capsule) 1 each BID GTB Last administered on 10/31/18 20:22; Admin Dose 1 EACH; Start 10/09/18 at 21:00 Lansoprazole (Prevacid) 30 mg BID@06,18 GTB Last administered on 10/31/18 18:03; Admin Dose 30 MG; Start 10/09/18 at 18:00 Levetiracetam (Keppra Liquid) 500 mg BID GTB Last administered on 10/31/18 20:22; Admin Dose 500 MG; Start 10/09/18 at 21:00 Magnesium Oxide (Mag-Ox 400) 400 mg BID GTB Last administered on 10/31/18 20:23; Admin Dose 400 MG; Start 10/09/18 at 21:00 Metoclopramide HCl (Reglan) 10 mg TID IV Last administered on 10/31/18 20:22; Admin Dose 10 MG; Start 10/09/18 at 21:00 Miconazole Nitrate (Miconazole 2% Cr) 1 applic BID TOP Last administered on 10/31/18 20:24; Admin Dose 1 APPLIC; Start 10/09/18 at 21:00 Miconazole Nitrate (Miconazole 2% Cr) 1 applic Q12 PRN TOP rash; Start 10/09/18 at 14:00 Ondansetron HCl (Zofran Inj) 4 mg Q4H PRN IV NAUSEA AND/OR VOMITING Last administered on 10/19/18 16:37; Admin Dose 4 MG; Start 10/09/18 at 14:00 Polyethylene Glycol (Miralax) 17 gm DAILY PRN GTB CONSTIPATION; Start 10/09/18 at 14:00 Senna (Senokot) 2 tab Q8 PRN PO CONSTIPATION; Start 10/09/18 at 14:00 Trimethoprim/ Sulfamethoxazole (Bactrim Susp) 40 ml DAILY GTB Last administered on 10/31/18 08:20; Admin Dose 40 ML; Start 10/10/18 at 09:00 Zolpidem Tartrate (Ambien) 5 mg HS PRN PO INSOMNIA Last administered on 10/21/18 02:34; Admin Dose 5 MG; Start 10/09/18 at 14:00 Miscellaneous Information 1 ea NOTE XX ; Start 10/09/18 at 15:00 Glucose (Glutose) 15 gm Q15M PRN PO DECREASED GLUCOSE; Start 10/09/18 at 15:00 Glucose (Glutose) 22.5 gm Q15M PRN PO DECREASED GLUCOSE; Start 10/09/18 at 15:00 Dextrose (D50w Syringe) 25 ml Q15M PRN IV DECREASED GLUCOSE; Start 10/09/18 at 15:00 Dextrose (D50w Syringe) 50 ml Q15M PRN IV DECREASED GLUCOSE; Start 10/09/18 at 15:00 Glucagon (Glucagen) 1 mg Q15M PRN IM DECREASED GLUCOSE; Start 10/09/18 at 15:00 Glucose (Glutose) 15 gm Q15M PRN BUCCAL DECREASED GLUCOSE; Start 10/09/18 at 15:00 Sodium Chloride 500 ml @ 500 mls/hr Q1H PRN IV BLOOD PRESSURE SUPPORT Last adm inistered on 10/31/18at 03:35; Admin Dose 500 MLS/HR; Start 10/09/18 at 19:30 Albuterol (Ventolin Hfa) 4 puff Q6H RESP THERAPY INH Last administered on 10/31/18 20:00; Admin Dose 4 PUFF; Start 10/10/18 at 02:00 Ipratropium Sarepta (Atrovent Hfa) 4 puff Q6H RESP THERAPY INH Last administered on 10/31/18 20:00; Admin Dose 4 PUFF; Start 10/10/18 at 02:00 Lorazepam (Ativan) 1 mg Q4H PRN GTB AGITATION/ANXIETY Last administered on 10/19/18 17:35; Admin Dose 1 MG; Start 10/14/18 at 13:00 Lisinopril (Zestril) 2.5 mg DAILY PO Last administered on 10/31/18 08:21; Admin Dose 2.5 MG; Start 10/15/18 at 09:00 Linagliptin (Tradjenta) 5 mg DAILY PO Last administered on 10/31/18 08:21; Admin Dose 5 MG; Start 10/16/18 at 10:30 Fentanyl (Duragesic 50 Mcg/Hr Patch) 1 patch Q72H TRANSDERM Last administered on 10/29/18 21:43; Admin Dose 1 PATCH; Start 10/17/18 at 20:30 Lorazepam (Ativan) 2 mg Q6H GTB Last administered on 10/31/18 20:22; Admin Dose 2 MG; Start 10/20/18 at 15:00 Quetiapine Fumarate (Seroquel) 100 mg BID GTB Last administered on 10/31/18 20:22; Admin Dose 100 MG; Start 10/21/18 at 21:00 Hydromorphone HCl (Dilaudid) 6 mg Q4H PRN PO MODERATE PAIN LEVEL 7-10 Last administered on 10/31/18 20:25; Admin Dose 6 MG; Start 10/21/18 at 22:00 Calcium Carbonate (Ca Carbonate) 1,250 mg QID GTB Last administered on 10/31/18 20:21; Admin Dose 1,250 MG; Start 10/24/18 at 13:00 Carvedilol (Coreg) 6.25 mg BID PO Last administered on 10/31/18 20:23; Admin Dose 6.25 MG; Start 10/27/18 at 21:00 Calcitriol (Rocaltrol) 1 mcg BID PO Last administered on 10/31/18 20:24; Admin Dose 1 MCG; Start 10/28/18 at 09:00 Sodium Chloride 1,000 ml @ 75 mls/hr [id number] IV Last administered on 10/31/18 18:04; Admin Dose 75 MLS/HR; Start 10/28/18 at 10:00 Metoprolol Tartrate (Lopressor) 5 mg Q4H PRN IV HR>110 Hold SBP<100; Start 10/28/18 at 12:30 Hydrocortisone (Cortef) 10 mg QAM PEG Last administered on 10/31/18 11:32; Admin Dose 10 MG; Start 10/31/18 at 11:30 Hydrocortisone (Cortef) 5 mg AC DINNER PEG Last administered on 10/31/18 16:07; Admin Dose 5 MG; Start 10/31/18 at 17:05 Hydrocortisone (Cortef) 2.5 mg QHS PEG Last administered on 10/31/18 20:30; Admin Dose 2.5 MG; Start 10/31/18 at 21:00 RENATO GAMBOA Oct 31, 2018 20:45
[2018-11-01] VITALS (80 sets, daily range): BP systolic 69–145; BP diastolic 44–101; PULSE 88–134; RESP 18–37
[2018-11-01] MEDS: ALBUTEROL HFA 8 GM INHALER INH SCH ×4 (01:03→19:50)
[2018-11-01] MEDS: IPRATROPIUM (HFA) 12.9 GM INHALER INH SCH ×4 (01:03→19:49)
[2018-11-01] MEDS: INSULIN ASPART [NOVOLOG] 3 ML PEN SC SCH ×4 (02:00→20:00)
[2018-11-01] MEDS: ACCU-CHEK XX SCH (02:16)
[2018-11-01] MEDS: LORAZEPAM 1 MG TAB GTB SCH ×4 (02:16→20:53)
[2018-11-01] MEDS: LANSOPRAZOLE 30 MG CAP GTB SCH ×2 (05:56→18:31)
[2018-11-01] MEDS: GABAPENTIN (50 MG/ML PO SYG) GTB SCH ×3 (05:56→21:06)
[2018-11-01] MEDS: SOD CHLORIDE 0.9% 1,000 ML IV SCH (05:57)
[2018-11-01] MEDS: HYDROmorphONE 2 MG TAB PO PRN ×3 (05:57→22:08)
--- NOTE | 2018-11-01 07:45 | CONS ---
Assessment/Plan Assessment/Plan Hospital Course (Demo Recall) 53 yo male pt in [place] transferred to ICU for increased O2 demands Interval History-FiO2 60% and has episodes of desaturation. Ativan PO and dilaudid PO around the clock for anxiety. Brown stool. CXR shows increase in infiltrates. 1. Respiratory failure secondary to pneumonia versus interstitial pneumonitis from rheumatoid arthritis versus mild aspiration. -on Bactrim 2. Severe rheumatoid arthritis. 3. Quadriplegia. 4. Adrenal insufficiency. 5. Gastroparesis. -Reglan, denies nausea 6. Hypothyroidism. 7. Chronic pain syndrome. 8. Hypertension. 9. 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 Leukocytosis secondary to steroids 11.ARDS 12. Anxiety -on PO ativan PLAN: Continue supportive ICU care Nothing by mouth per swallow eval results Continue with tube feeds check residuals q 4 hours Continue Reglan. Aspiration precautions. So far there is no evidence of aspiration. If anytime there is evidence of aspiration will convert G-tube to J-tube Pt examined and plan of care discussed with Dr. Minaya Consultation Date/Type/Reason Admit Date/Time Oct 09, 2018 at 12:16 Initial Consult Date 10/09/18 Requesting Provider: NOLA VIDAL MD Date/Time of Note DATE: 11/01/18 TIME: 07:43 Exam/Review of Systems Exam Vitals Vital Signs Date Temp Pulse Resp B/P (MAP) Pulse Ox O2 O2 Flow FiO2 Time Delivery Rate 11/01/18 120 22 134/85 95 Mechanical 06:00 (101) Ventilator 11/01/18 60 05:00 11/01/18 98.7 04:00 Intake and Output 10/31/18 10/31/18 11/01/18 1515:00 23:00 07:00 IntakeIntake Total 970 ml 895 ml 830 ml OutputOutput Total 400 ml 672 ml 640 ml BalanceBalance 570 ml 223 ml 190 ml Constitutional: alert, oriented Psych: no complaints Head: normocephalic Eyes: PERRL Respiratory: diminished breath sounds Cardiovascular: other (sinus tachycardia) Gastrointestinal: soft, non-tender Neurological: nl mental status Results Result Diagram: 11/01/18 04211/01/18 042 Results 24hrs Laboratory Tests Test 10/31/18 08:17 10/31/18 13:35 10/31/18 20:20 11/01/18 02:15 Bedside Glucose 109 95 114 105 Test 11/01/18 04:20 White Blood Count 18.2 H Red Blood Count 2.76 L Hemoglobin 8.0 L Hematocrit 26.6 L Mean Corpuscular 96.4 Volume Mean Corpuscular 29.0 Hemoglobin Mean Corpuscular 30.1 L Hemoglobin Concent Red Cell 18.9 H Distribution Width Platelet Count 212 Mean Platelet Volume 11.6 H Immature 3.200 H Granulocytes % Neutrophils % 76.1 Lymphocytes % 4.1 L Monocytes % 7.6 Eosinophils % 8.8 H Basophils % 0.2 Nucleated Red Blood 0.0 Cells % Immature 0.580 H Granulocytes # Neutrophils # 13.9 H Lymphocytes # 0.8 Monocytes # 1.4 H Eosinophils # 1.6 H Basophils # 0.0 Nucleated Red Blood 0.0 Cells # Sodium Level 135 Potassium Level 3.5 Chloride Level 102 Carbon Dioxide Level 33 H Anion Gap 0 #L Blood Urea Nitrogen 20 Creatinine 0.29 L Est Glomerular > 60 Filtrat Rate mL/min Glucose Level 89 Calcium Level 6.5 L Ionized Calcium 1.0 L (Measured) Medications Medication Current Medications Acetaminophen (Tylenol Liquid) 650 mg Q4H PRN GTB MILD PAIN(1-3)OR ELEVATED TEMP Last administered on 10/16/18at 07:52; Admin Dose 650 MG; Start 10/09/18 at 14:00 Al Hydrox/Mg Hydrox/Simethicone (Mag-Al Plus) 15 ml Q6H PRN PO GASTROINTESTINAL UPSET Last administered on 10/17/18at 13:18; Admin Dose 15 ML; Start 10/09/18 at 14:00 Eye Lubricant (Artificial Tears Oph) 1 drop Q6H PRN BOTH EYES DRY EYES; Start 10/09/18 at 14:00 Bisacodyl (Dulcolax Supp) 10 mg DAILY PRN [place] CONSTIPATION; Start 10/09/18 at 14:00 Clonidine (Catapres) 0.1 mg DAILY PRN GTB ELEVATED BLOOD PRESSURE; Start 10/09/18 at 14:00 Diltiazem HCl (Cardizem Iv) 5 mg Q4 PRN IV ELEVATED HEART RATE Last administered on 10/18/18at 01:09; Admin Dose 5 MG; Start 10/09/18 at 14:00 Diphenhydramine HCl (Benadryl Liquid Cup) 25 mg Q6 PRN GTB ITCHING Last administered on 10/22/18 20:25; Admin Dose 25 MG; Start 10/09/18 at 14:00 Duloxetine HCl (Cymbalta) 30 mg DAILY PO Last administered on 10/31/18 08:21; Admin Dose 30 MG; Start 10/10/18 at 09:00 Gabapentin (Neurontin Liquid) 400 mg Q8 GTB Last administered on 11/01/18 05:56; Admin Dose 400 MG; Start 10/09/18 at 15:30 Hydralazine HCl (Apresoline) 10 mg Q4H PRN IV ELEVATED BLOOD PRESSURE; Start 10/09/18 at 14:00 Hydroxychloroquine Sulfate (Plaquenil) 200 mg BID PO Last administered on 10/31/18 20:22; Admin Dose 200 MG; Start 10/09/18 at 21:00 Diagnostic Test (Pha) (Accu-Chek) 1 ea 02 XX Last administered on 11/01/18 02:16; Admin Dose 1 EA; Start 10/10/18 at 02:00 Insulin Aspart (Novolog Insulin Pen) NOVOLOG *CUSTOM* ALGORITHM Q6H SC Last administered on 10/29/18 20:36; Admin Dose 1 UNIT; Start 10/09/18 at 14:00 Lactobacillus Acidophilus (Florajen3 Capsule) 1 each BID GTB Last administered on 10/31/18 20:22; Admin Dose 1 EACH; Start 10/09/18 at 21:00 Lansoprazole (Prevacid) 30 mg BID@,18 GTB Last administered on 11/01/18 05:56; Admin Dose 30 MG; Start 10/09/18 at 18:00 Levetiracetam (Keppra Liquid) 500 mg BID GTB Last administered on 10/31/18 20:22; Admin Dose 500 MG; Start 10/09/18 at 21:00 Magnesium Oxide (Mag-Ox 400) 400 mg BID GTB Last administered on 10/31/18 20:23; Admin Dose 400 MG; Start 10/09/18 at 21:00 Metoclopramide HCl (Reglan) 10 mg TID IV Last administered on 3/18/19at 20:22; Admin Dose 10 MG; Start 10/09/18 at 21:00 Miconazole Nitrate (Miconazole 2% Cr) 1 applic BID TOP Last administered on 10/31/18at 20:24; Admin Dose 1 APPLIC; Start 10/09/18 at 21:00 Miconazole Nitrate (Miconazole 2% Cr) 1 applic Q12 PRN TOP rash; Start 10/09/18 at 14:00 Ondansetron HCl (Zofran Inj) 4 mg Q4H PRN IV NAUSEA AND/OR VOMITING Last administered on 10/19/18at 16:37; Admin Dose 4 MG; Start 10/09/18 at 14:00 Polyethylene Glycol (Miralax) 17 gm DAILY PRN GTB CONSTIPATION; Start 10/09/18 at 14:00 Senna (Senokot) 2 tab Q8 PRN PO CONSTIPATION; Start 10/09/18 at 14:00 Trimethoprim/ Sulfamethoxazole (Bactrim Susp) 40 ml DAILY GTB Last administered on 10/31/18at 08:20; Admin Dose 40 ML; Start 10/10/18 at 09:00 Zolpidem Tartrate (Ambien) 5 mg HS PRN PO INSOMNIA Last administered on 10/21/18 02:34; Admin Dose 5 MG; Start 10/09/18 at 14:00 Miscellaneous Information 1 ea NOTE XX ; Start 10/09/18 at 15:00 Glucose (Glutose) 15 gm Q15M PRN PO DECREASED GLUCOSE; Start 10/09/18 at 15:00 Glucose (Glutose) 22.5 gm Q15M PRN PO DECREASED GLUCOSE; Start 10/09/18 at 15:00 Dextrose (D50w Syringe) 25 ml Q15M PRN IV DECREASED GLUCOSE; Start 10/09/18 at 15:00 Dextrose (D50w Syringe) 50 ml Q15M PRN IV DECREASED GLUCOSE; Start 10/09/18 at 15:00 Glucagon (Glucagen) 1 mg Q15M PRN IM DECREASED GLUCOSE; Start 10/09/18 at 15:00 Glucose (Glutose) 15 gm Q15M PRN BUCCAL DECREASED GLUCOSE; Start 10/09/18 at 15:00 Sodium Chloride 500 ml @ 500 mls/hr Q1H PRN IV BLOOD PRESSURE SUPPORT Last ad ministered on 10/31/18at 03:35; Admin Dose 500 MLS/HR; Start 10/09/18 at 19:30 Albuterol (Ventolin Hfa) 4 puff Q6H RESP THERAPY INH Last administered on 11/01/18 01:03; Admin Dose 4 PUFF; Start 10/10/18 at 02:00 Ipratropium Clifford (Atrovent Hfa) 4 puff Q6H RESP THERAPY INH Last administered on 11/01/18 01:03; Admin Dose 4 PUFF; Start 10/10/18 at 02:00 Lorazepam (Ativan) 1 mg Q4H PRN GTB AGITATION/ANXIETY Last administered on 10/19/18 17:35; Admin Dose 1 MG; Start 10/14/18 at 13:00 Lisinopril (Zestril) 2.5 mg DAILY PO Last administered on 10/31/18 08:21; Admin Dose 2.5 MG; Start 10/15/18 at 09:00 Linagliptin (Tradjenta) 5 mg DAILY PO Last administered on 10/31/18 08:21; Admin Dose 5 MG; Start 10/16/18 at 10:30 Fentanyl (Duragesic 50 Mcg/Hr Patch) 1 patch Q72H TRANSDERM Last administered on 10/29/18 21:43; Admin Dose 1 PATCH; Start 10/17/18 at 20:30 Lorazepam (Ativan) 2 mg Q6H GTB Last administered on 11/01/18 02:16; Admin Dose 2 MG; Start 10/20/18 at 15:00 Quetiapine Fumarate (Seroquel) 100 mg BID GTB Last administered on 10/31/18 20:22; Admin Dose 100 MG; Start 10/21/18 at 21:00 Hydromorphone HCl (Dilaudid) 6 mg Q4H PRN PO MODERATE PAIN LEVEL 7-10 Last administered on 11/01/18 05:57; Admin Dose 6 MG; Start 10/21/18 at 22:00 Calcium Carbonate (Ca Carbonate) 1,250 mg QID GTB Last administered on 10/31/18 20:21; Admin Dose 1,250 MG; Start 10/24/18 at 13:00 Carvedilol (Coreg) 6.25 mg BID PO Last administered on 10/31/18 20:23; Admin Dose 6.25 MG; Start 10/27/18 at 21:00 Calcitriol (Rocaltrol) 1 mcg BID PO Last administered on 10/31/18 20:24; Admin Dose 1 MCG; Start 10/28/18 at 09:00 Sodium Chloride 1,000 ml @ 75 mls/hr [id number] IV Last administered on 11/01/18 05:57; Admin Dose 75 MLS/HR; Start 10/28/18 at 10:00 Metoprolol Tartrate (Lopressor) 5 mg Q4H PRN IV HR>110 Hold SBP<100; Start 10/28/18 at 12:30 Hydrocortisone (Cortef) 10 mg QAM PEG Last administered on 10/31/18 11:32; Admin Dose 10 MG; Start 10/31/18 at 11:30 Hydrocortisone (Cortef) 5 mg AC DINNER PEG Last administered on 10/31/18 16:07; Admin Dose 5 MG; Start 10/31/18 at 17:05 Hydrocortisone (Cortef) 2.5 mg QHS PEG Last administered on 10/31/18 20:30; Admin Dose 2.5 MG; Start 10/31/18 at 21:00 MARYANN HACKETT Nov 01, 2018 07:45
--- NOTE | 2018-11-01 08:23 | PN ---
DATE: 11/01/2018 SUBJECTIVE: The patient is stable, no events overnight. OBJECTIVE: VITAL SIGNS: Blood pressure is 134/85, respirations 22, pulse 120, temperature 98.6. HEENT: Head is normocephalic. NECK: Supple. HEART: Regular rate. LUNGS: Show diminished breath sounds at the base. ABDOMEN: Soft, nontender to palpation without rebound or guarding. EXTREMITIES: Negative for clubbing, cyanosis, no edema. DERMATOLOGIC: No rashes. MUSCULOSKELETAL: No joint effusion. NEUROLOGIC: No change in exam. MEDICATIONS: The patient's medications have been reviewed. LABORATORY DATA: Shows white count 18.2, hemoglobin 8.0, platelet count 212. Sodium 135, potassium 3.5, BUN 20, creatinine 0.29 and ionized calcium 1.0. IMAGING STUDY: The patient's chest x-ray shows increased diffuse interstitial edema. His laboratory data has been reviewed. ASSESSMENT AND PLAN: 1. Nonoliguric acute kidney injury with previously normal baseline creatinine. Etiology of acute ki dney injury is secondary to hemodynamics. Renal function is improved. Continue current treatment pl ans, supportive care, renally dose all medicines. We will discontinue IV fluids. 2. Pulmonary edema. The patient's chest x-ray shows increased interstitial edema. Plan is to hold IV fluids. We will give the patient a dose of Lasix 20 mg IV x1 and monitor. 3. Hypernatremia, improved. Continue free water restriction. 4. Hypomagnesemia. Continue to monitor and replete. 5. Mineral bone disorder. The patient is hypocalcemic. Continue vitamin D analogs. Follow up with endocrinology. 6. Ventilator-dependent respiratory failure. Vent settings and ABG was reviewed. Continue to monit or. 7. Adrenal insufficiency. Continue Cortef. 8. Anemia. Continue to monitor hemoglobin and hematocrit levels. 9. Dysphagia. Continue tube feeding. 10. Sepsis secondary to pneumonia. The patient is completing antibiotic course. 11. Hypotension, improved. Continue to monitor. 12. Seizure disorder. Continue medical management. 13. Anxiety disorder. Continue anxiolytics. Dictated By: UNA ROY DO NR/NTS Conf#: [id number] DID#: [id number] CC: NOLA VIDAL MD; CAMELIA VALENTINE MD;*EndCC*
[2018-11-01] MEDS ORDERED: POTASSIUM CHLORIDE 20 MEQ POWDER FOR ORAL SOLN GTB ONE (08:30)
[2018-11-01] MEDS ORDERED: FUROSEMIDE 20 MG INJ IV ONE (08:30)
--- NOTE | 2018-11-01 08:49 | CONS ---
Consult Date/Type/Reason Admit Date/Time Oct 09, 2018 at 12:16 Initial Consult Date 10/09/18 Type of Consultation: Pulm/CC Requesting Provider: NOLA VIDAL MD Date/Time of Note DATE: 11/01/18 TIME: 08:46 Subjective NO acute events - pt comfortable - tachy - in good fluid status - will monitor now. ROS: No fever, no chills, no nausea, no vomiting, no diarrhea/constipation - anxious No recent weight changes No chest pain, no PND, no orthopnea + chronic SOB No dizziness, blurred vision No thirst, no heat or cold intolerance Objective Vitals Vital Signs Date Temp Pulse Resp B/P (MAP) Pulse Ox O2 O2 Flow FiO2 Time Delivery Rate 11/01/18 110 25 94 60 08:04 11/01/18 134/85 Mechanical 06:00 (101) Ventilator 11/01/18 98.7 04:00 Intake and Output 10/31/18 10/31/18 11/01/18 1515:00 23:00 07:00 IntakeIntake Total 970 ml 895 ml 830 ml OutputOutput Total 400 ml 672 ml 640 ml BalanceBalance 570 ml 223 ml 190 ml Exam General: WN/WD/NAD, AOx 2-3 HEENT: Unicetric/atraumatic/EOMI (follow commands) NECK: trach Lymph: no lymphadenopathy HEART: tachy regular with no S3, II/ systolic murmur at apex LUNGS: Coarse sounds ABD: soft, NT, ND, +BS : Intact Neuro: non focal SKIN: chronic changes EXT: trace edema Results/Medications Result Diagram: 11/01/1841911/01/18 042 Results 24 hrs Laboratory Tests Test 10/31/18 13:35 10/31/18 20:20 11/01/18 02:15 11/01/18 04:20 Bedside Glucose 95 114 105 White Blood Count 18.2 H Red Blood Count 2.76 L Hemoglobin 8.0 L Hematocrit 26.6 L Mean Corpuscular 96.4 Volume Mean Corpuscular 29.0 Hemoglobin Mean Corpuscular 30.1 L Hemoglobin Concent Red Cell 18.9 H Distribution Width Platelet Count 212 Mean Platelet Volume 11.6 H Immature 3.200 H Granulocytes % Neutrophils % 76.1 Lymphocytes % 4.1 L Monocytes % 7.6 Eosinophils % 8.8 H Basophils % 0.2 Nucleated Red Blood 0.0 Cells % Immature 0.580 H Granulocytes # Neutrophils # 13.9 H Lymphocytes # 0.8 Monocytes # 1.4 H Eosinophils # 1.6 H Basophils # 0.0 Nucleated Red Blood 0.0 Cells # Sodium Level 135 Potassium Level 3.5 Chloride Level 102 Carbon Dioxide Level 33 H Anion Gap 0 #L Blood Urea Nitrogen 20 Creatinine 0.29 L Est Glomerular > 60 Filtrat Rate mL/min Glucose Level 89 Calcium Level 6.5 L Ionized Calcium 1.0 L (Measured) Medications Current Medications Acetaminophen (Tylenol Liquid) 650 mg Q4H PRN GTB MILD PAIN(1-3)OR ELEVATED TEMP Last administered on 10/16/18 07:52; Admin Dose 650 MG; Start 10/09/18 at 14:00 Al Hydrox/Mg Hydrox/Simethicone (Mag-Al Plus) 15 ml Q6H PRN PO GASTROINTESTINAL UPSET Last administered on 10/17/18 13:18; Admin Dose 15 ML; Start 10/09/18 at 14:00 Eye Lubricant (Artificial Tears Oph) 1 drop Q6H PRN BOTH EYES DRY EYES; Start 10/09/18 at 14:00 Bisacodyl (Dulcolax Supp) 10 mg DAILY PRN [place] CONSTIPATION; Start 10/09/18 at 14:00 Clonidine (Catapres) 0.1 mg DAILY PRN GTB ELEVATED BLOOD PRESSURE; Start 10/09/18 at 14:00 Diltiazem HCl (Cardizem Iv) 5 mg Q4 PRN IV ELEVATED HEART RATE Last administered on 10/18/18 01:09; Admin Dose 5 MG; Start 10/09/18 at 14:00 Diphenhydramine HCl (Benadryl Liquid Cup) 25 mg Q6 PRN GTB ITCHING Last administered on 10/22/18 20:25; Admin Dose 25 MG; Start 10/09/18 at 14:00 Duloxetine HCl (Cymbalta) 30 mg DAILY PO Last administered on 10/31/18 08:21; Admin Dose 30 MG; Start 10/10/18 at 09:00 Gabapentin (Neurontin Liquid) 400 mg Q8 GTB Last administered on 11/01/18 05 :56; Admin Dose 400 MG; Start 10/09/18 at 15:30 Hydralazine HCl (Apresoline) 10 mg Q4H PRN IV ELEVATED BLOOD PRESSURE; Start 10/09/18 at 14:00 Hydroxychloroquine Sulfate (Plaquenil) 200 mg BID PO Last administered on 10/31/18 20:22; Admin Dose 200 MG; Start 10/09/18 at 21:00 Diagnostic Test (Pha) (Accu-Chek) 1 ea 02 XX Last administered on 11/01/18 02:16; Admin Dose 1 EA; Start 10/10/18 at 02:00 Insulin Aspart (Novolog Insulin Pen) NOVOLOG *CUSTOM* ALGORITHM Q6H SC Last administered on 10/29/18 20:36; Admin Dose 1 UNIT; Start 10/09/18 at 14:00 Lactobacillus Acidophilus (Florajen3 Capsule) 1 each BID GTB Last administered on 10/31/18 20:22; Admin Dose 1 EACH; Start 10/09/18 at 21:00 Lansoprazole (Prevacid) 30 mg BID@18 GTB Last administered on 11/01/18 05:56; Admin Dose 30 MG; Start 10/09/18 at 18:00 Levetiracetam (Keppra Liquid) 500 mg BID GTB Last administered on 10/31/18 20:22; Admin Dose 500 MG; Start 10/09/18 at 21:00 Magnesium Oxide (Mag-Ox 400) 400 mg BID GTB Last administered on 10/31/18 20:23; Admin Dose 400 MG; Start 10/09/18 at 21:00 Metoclopramide HCl (Reglan) 10 mg TID IV Last administered on 10/31/18 20:22; Admin Dose 10 MG; Start 10/09/18 at 21:00 Miconazole Nitrate (Miconazole 2% Cr) 1 applic BID TOP Last administered on 10/31/18 20:24; Admin Dose 1 APPLIC; Start 10/09/18 at 21:00 Miconazole Nitrate (Miconazole 2% Cr) 1 applic Q12 PRN TOP rash; Start 10/09/18 at 14:00 Ondansetron HCl (Zofran Inj) 4 mg Q4H PRN IV NAUSEA AND/OR VOMITING Last administered on 10/19/18 16:37; Admin Dose 4 MG; Start 10/09/18 at 14:00 Polyethylene Glycol (Miralax) 17 gm DAILY PRN GTB CONSTIPATION; Start 10/09/18 at 14:00 Senna (Senokot) 2 tab Q8 PRN PO CONSTIPATION; Start 10/09/18 at 14:00 Trimethoprim/ Sulfamethoxazole (Bactrim Susp) 40 ml DAILY GTB Last administered on 10/31/18 08:20; Admin Dose 40 ML; Start 10/10/18 at 09:00 Zolpidem Tartrate (Ambien) 5 mg HS PRN PO INSOMNIA Last administered on 10/21/18 02:34; Admin Dose 5 MG; Start 10/09/18 at 14:00 Miscellaneous Information 1 ea NOTE XX ; Start 10/09/18 at 15:00 Glucose (Glutose) 15 gm Q15M PRN PO DECREASED GLUCOSE; Start 10/09/18 at 15:00 Glucose (Glutose) 22.5 gm Q15M PRN PO DECREASED GLUCOSE; Start 10/09/18 at 15:00 Dextrose (D50w Syringe) 25 ml Q15M PRN IV DECREASED GLUCOSE; Start 10/09/18 at 15:00 Dextrose (D50w Syringe) 50 ml Q15M PRN IV DECREASED GLUCOSE; Start 10/09/18 at 15:00 Glucagon (Glucagen) 1 mg Q15M PRN IM DECREASED GLUCOSE; Start 10/09/18 at 15:00 Glucose (Glutose) 15 gm Q15M PRN BUCCAL DECREASED GLUCOSE; Start 10/09/18 at 15:00 Sodium Chloride 500 ml @ 500 mls/hr Q1H PRN IV BLOOD PRESSURE SUPPORT Last administered on 10/31/18at 03:35; Admin Dose 500 MLS/HR; Start 10/09/18 at 19:30 Albuterol (Ventolin Hfa) 4 puff Q6H RESP THERAPY INH Last administered on 11/01/18 08:18; Admin Dose 4 PUFF; Start 10/10/18 at 02:00 Ipratropium [place] (Atrovent Hfa) 4 puff Q6H RESP THERAPY INH Last administered on 11/01/18 08:18; Admin Dose 4 PUFF; Start 10/10/18 at 02:00 Lorazepam (Ativan) 1 mg Q4H PRN GTB AGITATION/ANXIETY Last administered on 10/19/18 17:35; Admin Dose 1 MG; Start 10/14/18 at 13:00 Lisinopril (Zestril) 2.5 mg DAILY PO Last administered on 10/31/18 08:21; Admin Dose 2.5 MG; Start 10/15/18 at 09:00 Linagliptin (Tradjenta) 5 mg DAILY PO Last administered on 10/31/18 08:21; Admin Dose 5 MG; Start 10/16/18 at 10:30 Fentanyl (Duragesic 50 Mcg/Hr Patch) 1 patch Q72H TRANSDERM Last administered on 10/29/18 21:43; Admin Dose 1 PATCH; Start 10/17/18 at 20:30 Lorazepam (Ativan) 2 mg Q6H GTB Last administered on 11/01/18 02:16; Admin Dos e 2 MG; Start 10/20/18 at 15:00 Quetiapine Fumarate (Seroquel) 100 mg BID GTB Last administered on 10/31/18 20:22; Admin Dose 100 MG; Start 10/21/18 at 21:00 Hydromorphone HCl (Dilaudid) 6 mg Q4H PRN PO MODERATE PAIN LEVEL 7-10 Last administered on 11/01/18 05:57; Admin Dose 6 MG; Start 10/21/18 at 22:00 Calcium Carbonate (Ca Carbonate) 1,250 mg QID GTB Last administered on 10/31/18 20:21; Admin Dose 1,250 MG; Start 10/24/18 at 13:00 Carvedilol (Coreg) 6.25 mg BID PO Last administered on 10/31/18 20:23; Admin Dose 6.25 MG; Start 10/27/18 at 21:00 Calcitriol (Rocaltrol) 1 mcg BID PO Last administered on 10/31/18 20:24; Admin Dose 1 MCG; Start 10/28/18 at 09:00 Metoprolol Tartrate (Lopressor) 5 mg Q4H PRN IV HR>110 Hold SBP<100; Start 10/28/18 at 12:30 Hydrocortisone (Cortef) 10 mg QAM PEG Last administered on 10/31/18 11:32; Admin Dose 10 MG; Start 10/31/18 at 11:30 Hydrocortisone (Cortef) 5 mg AC DINNER PEG Last administered on 10/31/18at 16:07; Admin Dose 5 MG; Start 10/31/18 at 17:05 Hydrocortisone (Cortef) 2.5 mg QHS PEG Last administered on 10/31/18at 20:30; Admin Dose 2.5 MG; Start 10/31/18 at 21:00 Assessment/Plan Hospital Course (Demo Recall) 1. Tachycardia at this time in the setting of fevers and respiratory distress, most consistent with sinus tachycardia likely driving this process - better now, con't supportive Rx and pain management- con't anxiety Rx. Con;t supportive RX. Rate controlled at rest. Keep euvolemic as tolerated. LAbile rate - con;t supportive rX . 2. Hypertension with borderline hypotension at this time. -still borderline Hotn - no focal symptoms. Will monitor now. In good range. STABLE. 3. Abnormal electrocardiogram at baseline.Sinus tach. OK to hydrate. 4. Chronic respiratory failure, status post tracheostomy.-weaning vent support - con't resp Rx. Con;t resp Rx. Pulmonary follows. 5. Dysphagia, status post G-tube. 6. Quadriplegia- skin care in palce. NO change. 7. Renal insufficiency, on steroids- Cr 0.29 now. Stable. Good urine output now. Good urine output. Resolved. 8. Chronic obstructive pulmonary disease - con't resp Rx per pulmonary team. On vent. 9. Rheumatoid arthritis. 10. Chronic kidney disease- better now. 11. Diabetes mellitus- on meds. 12. Anemia - of chronic Dz, ar 8.0 now H/H - no bleeding. VANESSA COOPER MD Nov 01, 2018 08:49
[2018-11-01] MEDS: CA CARBONATE (250 MG/ML) 5ML CUP GTB SCH ×4 (08:51→20:54)
[2018-11-01] MEDS: LEVETIRACETAM (100 MG/ML) 5ML CUP GTB SCH ×2 (08:51→20:53)
[2018-11-01] MEDS: TRIMETHOPRIM/SULFAMETHOX (PO SYG) GTB SCH (08:51)
[2018-11-01] MEDS: METOCLOPRAMIDE 10 MG INJ IV SCH ×3 (08:51→20:53)
[2018-11-01] MEDS: LISINOPRIL 5 MG TAB PO SCH (08:52)
[2018-11-01] MEDS: LINAGLIPTIN 5 MG TABLET PO SCH (08:52)
[2018-11-01] MEDS: QUETIAPINE 100 MG TAB GTB SCH ×2 (08:52→20:55)
[2018-11-01] MEDS: DULOXETINE 30 MG CAP DR PO SCH (08:52)
[2018-11-01] MEDS: HYDROXYCHLOROQUINE 200 MG TAB PO SCH ×2 (08:52→20:53)
[2018-11-01] MEDS: MAGNESIUM OXIDE 400 MG TAB GTB SCH ×2 (08:52→20:54)
[2018-11-01] MEDS: BALSAM PERU/CASTOR OIL 60 GM TUBE TOP SCH ×2 (08:54→20:54)
[2018-11-01] MEDS: ARTIFICIAL TEARS 15 ML OPH BOTH EYES PRN (08:54)
[2018-11-01] MEDS: MICONAZOLE 2% 30 GM CR TOP SCH ×2 (08:54→20:54)
--- NOTE | 2018-11-01 09:23 | CONS ---
Assessment/Plan Assessment/Plan Assessment/Plan (Daily) Ventilator setting; AC of 20, tidal volume 400, PEEP of 8, 60% FiO2. Assessment recommendations; 1. Patient with history of ARDS and chronic hypoxemia and VDR F admitted for pneumonia off IV antibiotics. 2. Patient has significant issues with decreasing FiO2 and gets extremely agitated and wants to keep high FiO2 on ventilator despite not meeting clinical criteria for high FiO2 requirement. 3. History of HSV esophagitis 4. Incomplete quadriplegia. 5. Mild anemia. 6. History of depression. 7. Peripheral neuropathy. 8. History of hypertension. Obtain ABG. Continue current supportive care. Further recommendations once ABG is performed. Consultation Date/Type/Reason Admit Date/Time Oct 09, 2018 at 12:16 Initial Consult Date 10/12/18 Type of Consult Pulmonary/critical care Patient's condition is stable. Remains completely awake and alert. Has remained hemodynamically stable. Patient also has been switched over to volume control ventilation from pressure-controlled mode. General exam; middle-aged male, on ventilator via tracheostomy, awake and alert. Watching television. Currently in no distress. Area Requesting Provider: NOLA VIDAL MD Date/Time of Note DATE: 11/01/18 TIME: 09:20 24 HR Interval Summary Free Text/Dictation Patient's condition remains stable. Still on 60% FiO2 with PEEP of 8. Patient has remained hemodynamically stable. General exam; middle-aged male, awake and alert. On ventilator via t racheostomy. Currently in no distress. Exam/Review of Systems Exam Vitals Vital Signs Date Temp Pulse Resp B/P (MAP) Pulse Ox O2 O2 Flow FiO2 Time Delivery Rate 11/01/18 110 25 94 60 08:04 11/01/18 134/85 Mechanical 06:00 (101) Ventilator 11/01/18 98.7 04:00 Intake and Output 10/31/18 10/31/18 11/01/18 1515:00 23:00 07:00 IntakeIntake Total 970 ml 895 ml 830 ml OutputOutput Total 400 ml 672 ml 640 ml BalanceBalance 570 ml 223 ml 190 ml Exam HEENT exam; supple neck, no JVD. No lymphadenopathy. Midline trachea. No thyromegaly. Patient is edentulous. Tracheostomy in place. Insertion site is clean. Chest exam; diminished breath sounds bilaterally. S1-S2 audible, no murmurs. Regular rhythm. Abdomen exam; soft, G-tube in place. Nondistended. Bowel sounds audible. No organomegaly. Extremity exam; no peripheral edema. TRIAGE REGISTERED NURSE exam; patient awake appropriately responsive able to move both upper extremities in a meaningful way. But exhibiting weakness. Patient has stable paraplegia. Results Result Diagram: 11/01/18 0420 11/01/18 0420 Results 24hrs Laboratory Tests Test 10/31/18 13:35 10/31/18 20:20 11/01/18 02:15 11/01/18 04:20 Bedside Glucose 95 114 105 White Blood Count 18.2 H Red Blood Count 2.76 L Hemoglobin 8.0 L Hematocrit 26.6 L Mean Corpuscular 96.4 Volume Mean Corpuscular 29.0 Hemoglobin Mean Corpuscular 30.1 L Hemoglobin Concent Red Cell 18.9 H Distribution Width Platelet Count 212 Mean Platelet Volume 11.6 H Immature 3.200 H Granulocytes % Neutrophils % 76.1 Lymphocytes % 4.1 L Monocytes % 7.6 Eosinophils % 8.8 H Basophils % 0.2 Nucleated Red Blood 0.0 Cells % Immature 0.580 H Granulocytes # Neutrophils # 13.9 H Lymphocytes # 0.8 Monocytes # 1.4 H Eosinophils # 1.6 H Basophils # 0.0 Nucleated Red Blood 0.0 Cells # Sodium Level 135 Potassium Level 3.5 Chloride Level 102 Carbon Dioxide Level 33 H Anion Gap 0 #L Blood Urea Nitrogen 20 Creatinine 0.29 L Est Glomerular > 60 Filtrat Rate mL/min Glucose Level 89 Calcium Level 6.5 L Ionized Calcium 1.0 L (Measured) Medications Medication Current Medications Acetaminophen (Tylenol Liquid) 650 mg Q4H PRN GTB MILD PAIN(1-3)OR ELEVATED TEMP Last administered on 10/16/18 07:52; Admin Dose 650 MG; Start 10/09/18 at 14:00 Al Hydrox/Mg Hydrox/Simethicone (Mag-Al Plus) 15 ml Q6H PRN PO GASTROINTESTINAL UPSET Last administered on 10/17/18 13:18; Admin Dose 15 ML; Start 10/09/18 at 14:00 Eye Lubricant (Artificial Tears Oph) 1 drop Q6H PRN BOTH EYES DRY EYES Last administered on 11/01/18 08:54; Admin Dose 1 DROP; Start 10/09/18 at 14:00 Bisacodyl (Dulcolax Supp) 10 mg DAILY PRN [place] CONSTIPATION; Start 10/09/18 at 14 :00 Clonidine (Catapres) 0.1 mg DAILY PRN GTB ELEVATED BLOOD PRESSURE; Start 10/09/18 at 14:00 Diltiazem HCl (Cardizem Iv) 5 mg Q4 PRN IV ELEVATED HEART RATE Last administered on 10/18/18 01:09; Admin Dose 5 MG; Start 10/09/18 at 14:00 Diphenhydramine HCl (Benadryl Liquid Cup) 25 mg Q6 PRN GTB ITCHING Last administered on 10/22/18 20:25; Admin Dose 25 MG; Start 10/09/18 at 14:00 Duloxetine HCl (Cymbalta) 30 mg DAILY PO Last administered on 11/01/18 08:52; Admin Dose 30 MG; Start 10/10/18 at 09:00 Gabapentin (Neurontin Liquid) 400 mg Q8 GTB Last administered on 11/01/18 05:56; Admin Dose 400 MG; Start 10/09/18 at 15:30 Hydralazine HCl (Apresoline) 10 mg Q4H PRN IV ELEVATED BLOOD PRESSURE; Start 10/09/18 at 14:00 Hydroxychloroquine Sulfate (Plaquenil) 200 mg BID PO Last administered on 11/01/18 08:52; Admin Dose 200 MG; Start 10/09/18 at 21:00 Diagnostic Test (Pha) (Accu-Chek) 1 ea 02 XX Last administered on 11/01/18 02:16; Admin Dose 1 EA; Start 10/10/18 at 02:00 Insulin Aspart (Novolog Insulin Pen) NOVOLOG *CUSTOM* ALGORITHM Q6H SC Last administered on 10/29/18 20:36; Admin Dose 1 UNIT; Start 10/09/18 at 14:00 Lactobacillus Acidophilus (Florajen3 Capsule) 1 each BID GTB Last administered on 10/31/18 20:22; Admin Dose 1 EACH; Start 10/09/18 at 21:00 Lansoprazole (Prevacid) 30 mg BID@,18 GTB Last administered on 11/01/18 05:56; Admin Dose 30 MG; Start 10/09/18 at 18:00 Levetiracetam (Keppra Liquid) 500 mg BID GTB Last administered on 11/01/18 08:51; Admin Dose 500 MG; Start 10/09/18 at 21:00 Magnesium Oxide (Mag-Ox 400) 400 mg BID GTB Last administered on 11/01/18 08:52; Admin Dose 400 MG; Start 10/09/18 at 21:00 Metoclopramide HCl (Reglan) 10 mg TID IV Last administered on 11/01/18 08:51; Admin Dose 10 MG; Start 10/09/18 at 21:00 Miconazole Nitrate (Miconazole 2% Cr) 1 applic BID TOP Last administered on 11/01/18 08:54; Admin Dose 1 APPLIC; Start 10/09/18 at 21:00 Miconazole Nitrate (Miconazole 2% Cr) 1 applic Q12 PRN TOP rash; Start 10/09/18 at 14:00 Ondansetron HCl (Zofran Inj) 4 mg Q4H PRN IV NAUSEA AND/OR VOMITING Last administered on 10/19/18at 16:37; Admin Dose 4 MG; Start 10/09/18 at 14:00 Polyethylene Glycol (Miralax) 17 gm DAILY PRN GTB CONSTIPATION; Start 10/09/18 at 14:00 Senna (Senokot) 2 tab Q8 PRN PO CONSTIPATION; Start 10/09/18 at 14:00 Trimethoprim/ Sulfamethoxazole (Bactrim Susp) 40 ml DAILY GTB Last administered on 11/01/18 08:51; Admin Dose 40 ML; Start 10/10/18 at 09:00 Zolpidem Tartrate (Ambien) 5 mg HS PRN PO INSOMNIA Last administered on 10/21/18at 02:34; Admin Dose 5 MG; Start 10/09/18 at 14:00 Miscellaneous Information 1 ea NOTE XX ; Start 10/09/18 at 15:00 Glucose (Glutose) 15 gm Q15M PRN PO DECREASED GLUCOSE; Start 10/09/18 at 15:00 Glucose (Glutose) 22.5 gm Q15M PRN PO DECREASED GLUCOSE; Start 10/09/18 at 15:00 Dextrose (D50w Syringe) 25 ml Q15M PRN IV DECREASED GLUCOSE; Start 10/09/18 at 15:00 Dextrose (D50w Syringe) 50 ml Q15M PRN IV DECREASED GLUCOSE; Start 10/09/18 at 15:00 Glucagon (Glucagen) 1 mg Q15M PRN IM DECREASED GLUCOSE; Start 10/09/18 at 15:00 Glucose (Glutose) 15 gm Q15M PRN BUCCAL DECREASED GLUCOSE; Start 10/09/18 at 15:00 Sodium Chloride 500 ml @ 500 mls/hr Q1H PRN IV BLOOD PRESSURE SUPPORT Last administered on 10/31/18 03:35; Admin Dose 500 MLS/HR; Start 10/09/18 at 19:30 Albuterol (Ventolin Hfa) 4 puff Q6H RESP THERAPY INH Last administered on 11/01/18 08:18; Admin Dose 4 PUFF; Start 10/10/18 at 02:00 Ipratropium [place] (Atrovent Hfa) 4 puff Q6H RESP THERAPY INH Last administered on 11/01/18 08:18; Admin Dose 4 PUFF; Start 10/10/18 at 02:00 Lorazepam (Ativan) 1 mg Q4H PRN GTB AGITATION/ANXIETY Last administered on 10/19/18 17:35; Admin Dose 1 MG; Start 10/14/18 at 13:00 Lisinopril (Zestril) 2.5 mg DAILY PO Last administered on 11/01/18 08:52; Admin Dose 2.5 MG; Start 10/15/18 at 09:00 Linagliptin (Tradjenta) 5 mg DAILY PO Last administered on 11/01/18 08:52; Admin Dose 5 MG; Start 10/16/18 at 10:30 Fentanyl (Duragesic 50 Mcg/Hr Patch) 1 patch Q72H TRANSDERM Last administered on 10/29/18 21:43; Admin Dose 1 PATCH; Start 10/17/18 at 20:30 Lorazepam (Ativan) 2 mg Q6H GTB Last administered on 11/01/18 02:16; Admin Dose 2 MG; Start 10/20/18 at 15:00 Quetiapine Fumarate (Seroquel) 100 mg BID GTB Last administered on 11/01/18 08:52; Admin Dose 100 MG; Start 10/21/18 at 21:00 Hydromorphone HCl (Dilaudid) 6 mg Q4H PRN PO MODERATE PAIN LEVEL 7-10 Last administered on 11/01/18 05:57; Admin Dose 6 MG; Start 10/21/18 at 22:00 Calcium Carbonate (Ca Carbonate) 1,250 mg QID GTB Last administered on 11/01/18 08:51; Admin Dose 1,250 MG; Start 10/24/18 at 13:00 Carvedilol (Coreg) 6.25 mg BID PO Last administered on 11/01/18 08:52; Admin Dose 6.25 MG; Start 10/27/18 at 21:00 Calcitriol (Rocaltrol) 1 mcg BID PO Last administered on 10/31/18 20:24; Admin Dose 1 MCG; Start 10/28/18 at 09:00 Metoprolol Tartrate (Lopressor) 5 mg Q4H PRN IV HR>110 Hold SBP<100; Start 10/28/18 at 12:30 Hydrocortisone (Cortef) 10 mg QAM PEG Last administered on 10/31/18 11:32; Admin Dose 10 MG; Start 10/31/18 at 11:30 Hydrocortisone (Cortef) 5 mg AC DINNER PEG Last administered on 10/31/18 16:07; Admin Dose 5 MG; Start 10/31/18 at 17:05 Hydrocortisone (Cortef) 2.5 mg QHS PEG Last administered on 10/31/18 20:30; Admin Dose 2.5 MG; Start 10/31/18 at 21:00 PILAR BERGER 19, 2019 09:23
[2018-11-01] MEDS: L ACIDOPHIL/B LACTIS/B LONGUM CAPSULE GTB SCH ×2 (09:27→20:53)
[2018-11-01] MEDS: CALCITRIOL 0.5 MCG CAPSULE PO SCH ×2 (11:20→20:54)
[2018-11-01] MEDS: HYDROCORTISONE 5 MG TAB PEG SCH ×2 (11:20→21:06)
[2018-11-01] MEDS: LORAZEPAM 1 MG TAB GTB PRN (12:08)
[2018-11-01] MEDS ORDERED: SOD CHLORIDE 0.9% 500 ML IV ONE (13:00)
[2018-11-01] MEDS ORDERED: LIDOCAINE 1% (MPF) 5 ML VIAL SC ONE (13:30)
[2018-11-01] MEDS: PHENYLephrine 40 MG in DEXTROSE 5% 246 ML IV SCH ×3 (14:00→23:29)
--- NOTE | 2018-11-01 16:00 | CONS ---
Assessment/Plan Assessment/Plan Assessment/Plan (Daily) Patient is currently having a PICC line placed and he has been sedated. He is essentially unchanged over the last 24 hours. He still remains awake alert able to answer questions cognitively intact. Plan family conference tomorrow when 2 children arrive will readdress patient's CODE STATUS options for ongoing level of care. Consultation Date/Type/Reason Admit Date/Time Oct 09, 2018 at 12:16 Initial Consult Date 10/12/18 Requesting Provider: NOLA VIDAL MD Date/Time of Note DATE: 11/01/18 TIME: 15:57 Exam/Review of Systems Exam Vitals Vital Signs Date Temp Pulse Resp B/P (MAP) Pulse Ox O2 O2 Flow FiO2 Time Delivery Rate 11/01/18 112 25 96 100 15:19 11/01/18 121/87 Mechanical 15:00 (98) Ventilator 11/01/18 97.7 12:00 Intake and Output 10/31/18 10/31/18 11/01/18 1515:00 23:00 07:00 IntakeIntake Total 970 ml 895 ml 945 ml OutputOutput Total 400 ml 672 ml 720 ml BalanceBalance 570 ml 223 ml 225 ml Results Result Diagram: 11/01/18 0420 11/01/18 0420 Results 24hrs Laboratory Tests Test 10/31/18 20:20 11/01/18 02:15 11/01/18 04:20 11/01/18 09:19 Bedside Glucose 114 105 94 White Blood Count 18.2 H Red Blood Count 2.76 L Hemoglobin 8.0 L Hematocrit 26.6 L Mean Corpuscular 96.4 Volume Mean Corpuscular 29.0 Hemoglobin Mean Corpuscular 30.1 L Hemoglobin Concen t Red Cell 18.9 H Distribution Width Platelet Count 212 Mean Platelet 11.6 H Volume Immature 3.200 H Granulocytes % Neutrophils % 76.1 Lymphocytes % 4.1 L Monocytes % 7.6 Eosinophils % 8.8 H Basophils % 0.2 Nucleated Red 0.0 Blood Cells % Immature 0.580 H Granulocytes # Neutrophils # 13.9 H Lymphocytes # 0.8 Monocytes # 1.4 H Eosinophils # 1.6 H Basophils # 0.0 Nucleated Red 0.0 Blood Cells # Sodium Level 135 Potassium Level 3.5 Chloride Level 102 Carbon Dioxide 33 H Level Anion Gap 0 #L Blood Urea 20 Nitrogen Creatinine 0.29 L Est Glomerular > 60 Filtrat Rate mL/min Glucose Level 89 Calcium Level 6.5 L Ionized Calcium 1.0 L (Measured) Blood Gas Blood arterial Specimen Source Arterial Blood 11/01/2018 10:05: Date Drawn 00 AM Arterial Blood pH 7.393 (Temp corrected) Arterial Blood 50.5 H pCO2 (Temp correct) Arterial Blood 50.5 *L pO2 (Temp corrected) Arterial Blood 30.1 H HCO3 Arterial Blood 4.4 H Base Excess Arterial Blood 85.8 L Oxygen Saturation [place] Test ACCEPTAB Arterial Blood Left Radial Gas Puncture Site Arterial 0.8 Blood Carboxyhemo globin Arterial Blood 0.3 Methemoglobin Blood Gas A-a O2 394.3 H Differential Oxyhemoglobin 84.9 L Percent Blood Gas 37.0 Temperature Blood Gas 20.0 Respiration Rate Blood Gas Actual 30 Respiration Rate Blood Gas VENT - AC Modality FiO2 70.0 Blood Gas Tidal 400.0 Volume Blood Gas Low 8.0 PEEP Setting Blood Gas YABEL RN Critical Value Read Back Blood Gas TM Notified Whom Blood Gas 11/01/2018 10:13: Notified Time 41 AM Test 11/01/18 13:44 Bedside Glucose 78 Medications Medication Current Medications Acetaminophen (Tylenol Liquid) 650 mg Q4H PRN GTB MILD PAIN(1-3)OR ELEVATED TEMP Last administered on 10/16/18 07:52; Admin Dose 650 MG; Start 10/09/18 at 14:00 Al Hydrox/Mg Hydrox/Simethicone (Mag-Al Plus) 15 ml Q6H PRN PO GASTROINTESTINAL UPSET Last administered on 10/17/18 13:18; Admin Dose 15 ML; Start 10/09/18 at 14:00 Eye Lubricant (Artificial Tears Oph) 1 drop Q6H PRN BOTH EYES DRY EYES Last administered on 11/01/18 08:54; Admin Dose 1 DROP; Start 10/09/18 at 14:00 Bisacodyl (Dulcolax Supp) 10 mg DAILY PRN [place]STIPATION; Start 10/09/18 at 14:00 Clonidine (Catapres) 0.1 mg DAILY PRN GTB ELEVATED BLOOD PRESSURE; Start 10/09/18 at 14:00 Diltiazem HCl (Cardizem Iv) 5 mg Q4 PRN IV ELEVATED HEART RATE Last administered on 10/18/18 01:09; Admin Dose 5 MG; Start 10/09/18 at 14:00 Diphenhydramine HCl (Benadryl Liquid Cup) 25 mg Q6 PRN GTB ITCHING Last administered on 10/22/18 20:25; Admin Dose 25 MG; Start 10/09/18 at 14:00 Duloxetine HCl (Cymbalta) 30 mg DAILY PO Last administered on 11/01/18 08:52; Admin Dose 30 MG; Start 10/10/18 at 09:00 Gabapentin (Neurontin Liquid) 400 mg Q8 GTB Last administered on 11/01/18 05:56; Admin Dose 400 MG; Start 10/09/18 at 15:30 Hydralazine HCl (Apresoline) 10 mg Q4H PRN IV ELEVATED BLOOD PRESSURE; Start 10/09/18 at 14:00 Hydroxychloroquine Sulfate (Plaquenil) 200 mg BID PO Last administered on 11/01/18 08:52; Admin Dose 200 MG; Start 10/09/18 at 21:00 Diagnostic Test (Pha) (Accu-Chek) 1 ea 02 XX Last administered on 11/01/18 02:16; Admin Dose 1 EA; Start 10/10/18 at 02:00 Insulin Aspart (Novolog Insulin Pen) NOVOLOG *CUSTOM* ALGORITHM Q6H SC Last administered on 10/29/18 20:36; Admin Dose 1 UNIT; Start 10/09/18 at 14:00 Lactobacillus Acidophilus (Florajen3 Capsule) 1 each BID GTB Last administered on 11/01/18 09:27; Admin Dose 1 EACH; Start 10/09/18 at 21:00 Lansoprazole (Prevacid) 30 mg BID@06,18 GTB Last administered on 11/01/18 05:56; Admin Dose 30 MG; Start 10/09/18 at 18:00 Levetiracetam (Keppra Liquid) 500 mg BID GTB Last administered on 11/01/18 08:51; Admin Dose 500 MG; Start 10/09/18 at 21:00 Magnesium Oxide (Mag-Ox 400) 400 mg BID GTB Last administered on 11/01/18 08:52; Admin Dose 400 MG; Start 10/09/18 at 21:00 Metoclopramide HCl (Reglan) 10 mg TID IV Last administered on 11/01/18at 13:48; Admin Dose 10 MG; Start 10/09/18 at 21:00 Miconazole Nitrate (Miconazole 2% Cr) 1 applic BID TOP Last administered on 11/01/18 08:54; Admin Dose 1 APPLIC; Start 10/09/18 at 21:00 Miconazole Nitrate (Miconazole 2% Cr) 1 applic Q12 PRN TOP rash; Start 10/09/18 at 14:00 Ondansetron HCl (Zofran Inj) 4 mg Q4H PRN IV NAUSEA AND/OR VOMITING Last administered on 10/19/18at 16:37; Admin Dose 4 MG; Start 10/09/18 at 14:00 Polyethylene Glycol (Miralax) 17 gm DAILY PRN GTB CONSTIPATION; Start 10/09/18 at 14:00 Senna (Senokot) 2 tab Q8 PRN PO CONSTIPATION; Start 10/09/18 at 14:00 Trimethoprim/ Sulfamethoxazole (Bactrim Susp) 40 ml DAILY GTB Last administered on 11/01/18at 08:51; Admin Dose 40 ML; Start 10/10/18 at 09:00 Zolpidem Tartrate (Ambien) 5 mg HS PRN PO INSOMNIA Last administered on 10/21/18 02:34; Admin Dose 5 MG; Start 10/09/18 at 14:00 Miscellaneous Information 1 ea NOTE XX ; Start 10/09/18 at 15:00 Glucose (Glutose) 15 gm Q15M PRN PO DECREASED GLUCOSE; Start 10/09/18 at 15:00 Glucose (Glutose) 22.5 gm Q15M PRN PO DECREASED GLUCOSE; Start 10/09/18 at 15:00 Dextrose (D50w Syringe) 25 ml Q15M PRN IV DECREASED GLUCOSE; Start 10/09/18 at 15:00 Dextrose (D50w Syringe) 50 ml Q15M PRN IV DECREASED GLUCOSE; Start 10/09/18 at 15:00 Glucagon (Glucagen) 1 mg Q15M PRN IM DECREASED GLUCOSE; Start 10/09/18 at 15:00 Glucose (Glutose) 15 gm Q15M PRN BUCCAL DECREASED GLUCOSE; Start 10/09/18 at 15:00 Sodium Chloride 500 ml @ 500 mls/hr Q1H PRN IV BLOOD PRESSURE SUPPORT Last administered on 10/31/18 03:35; Admin Dose 500 MLS/HR; Start 10/09/18 at 19:30 Albuterol (Ventolin Hfa) 4 puff Q6H RESP THERAPY INH Last administered on 11/01/18 13:57; Admin Dose 4 PUFF; Start 10/10/18 at 02:00 Ipratropium [place] (Atrovent Hfa) 4 puff Q6H RESP THERAPY INH Last administered on 11/01/18 13:57; Admin Dose 4 PUFF; Start 10/10/18 at 02:00 Lorazepam (Ativan) 1 mg Q4H PRN GTB AGITATION/ANXIETY Last administered on 11/01/18 12:08; Admin Dose 1 MG; Start 10/14/18 at 13:00 Linagliptin (Tradjenta) 5 mg DAILY PO Last administered on 11/01/18 08:52; Admin Dose 5 MG; Start 10/16/18 at 10:30 Fentanyl (Duragesic 50 Mcg/Hr Patch) 1 patch Q72H TRANSDERM Last administered on 10/29/18 21:43; Admin Dose 1 PATCH; Start 10/17/18 at 20:30 Lorazepam (Ativan) 2 mg Q6H GTB Last administered on 11/01/18 09:27; Admin Dose 2 MG; Start 10/20/18 at 15:00 Quetiapine Fumarate (Seroquel) 100 mg BID GTB Last administered on 11/01/18 08:52; Admin Dose 100 MG; Start 10/21/18 at 21:00 Hydromorphone HCl (Dilaudid) 6 mg Q4H PRN PO MODERATE PAIN LEVEL 7-10 Last administered on 11/01/18 11:31; Admin Dose 6 MG; Start 10/21/18 at 22:00 Calcium Carbonate (Ca Carbonate) 1,250 mg QID GTB Last administered on 11/01/18 13:47; Admin Dose 1,250 MG; Start 10/24/18 at 13:00 Calcitriol (Rocaltrol) 1 mcg BID PO Last administered on 11/01/18 11:20; Admin Dose 1 MCG; Start 10/28/18 at 09:00 Metoprolol Tartrate (Lopressor) 5 mg Q4H PRN IV HR>110 Hold SBP<100; Start 10/28/18 at 12:30 Hydrocortisone (Cortef) 10 mg QAM PEG Last administered on 11/01/18at 11:20; Admin Dose 10 MG; Start 10/31/18 at 11:30 Hydrocortisone (Cortef) 5 mg AC DINNER PEG Last administered on 10/31/18at 16:07; Admin Dose 5 MG; Start 10/31/18 at 17:05 Hydrocortisone (Cortef) 2.5 mg QHS PEG Last administered on 10/31/18at 20:30; Admin Dose 2.5 MG; Start 10/31/18 at 21:00 Carvedilol (Coreg) 3.125 mg BID PO ; Start 11/01/18 at 21:00 Phenylephrine HCl 40 mg/Dextrose 250 ml @ 37.5 mls/hr TITRATE IV ; Start 11/01/18 at 13:30 RENATO GAMBOA Nov 01, 2018 16:00
--- NOTE | 2018-11-01 16:09 | CONS ---
Assessment/Plan Assessment/Plan Hospital Course (Demo Recall) emr reviewed. care coordinated with environmental compliance inspector and care directed. Consultation Date/Type/Reason Admit Date/Time Oct 09, 2018 at 12:16 Initial Consult Date 10/12/18 Requesting Provider: NOLA VIDAL MD Date/Time of Note DATE: 11/01/18 TIME: 16:08 Exam/Review of Systems Exam Vitals Vital Signs Date Temp Pulse Resp B/P (MAP) Pulse Ox O2 O2 Flow FiO2 Time Delivery Rate 11/01/18 112 25 96 100 15:19 11/01/18 121/87 Mechanical 15:00 (98) Ventilator 11/01/18 97.7 12:00 Intake and Output 10/31/18 10/31/18 11/01/18 1515:00 23:00 07:00 IntakeIntake Total 970 ml 895 ml 945 ml OutputOutput Total 400 ml 672 ml 720 ml BalanceBalance 570 ml 223 ml 225 ml Results Result Diagram: 11/01/18 0420 11/01/18 0420 Results 24hrs Laboratory Tests Test 10/31/18 20:20 11/01/18 02:15 11/01/18 04:20 11/01/18 09:19 Bedside Glucose 114 105 94 White Blood Count 18.2 H Red Blood Count 2.76 L Hemoglobin 8.0 L Hematocrit 26.6 L Mean Corpuscular 96.4 Volume Mean Corpuscular 29.0 Hemoglobin Mean Corpuscular 30.1 L Hemoglobin Concen t Red Cell 18.9 H Distribution Width Platelet Count 212 Mean Platelet 11.6 H Volume Immature 3.200 H Granulocytes % Neutrophils % 76.1 Lymphocytes % 4.1 L Monocytes % 7.6 Eosinophils % 8.8 H Basophils % 0.2 Nucleated Red 0.0 Blood Cells % Immature 0.580 H Granulocytes # Neutrophils # 13.9 H Lymphocytes # 0.8 Monocytes # 1.4 H Eosinophils # 1.6 H Basophils # 0.0 Nucleated Red 0.0 Blood Cells # Sodium Level 135 Potassium Level 3.5 Chloride Level 102 Carbon Dioxide 33 H Level Anion Gap 0 #L Blood Urea 20 Nitrogen Creatinine 0.29 L Est Glomerular > 60 Filtrat Rate mL/min Glucose Level 89 Calcium Level 6.5 L Ionized Calcium 1.0 L (Measured) Blood Gas Blood arterial Specimen Source Arterial Blood 11/01/2018 10:05: Date Drawn 00 AM Arterial Blood pH 7.393 (Temp corrected) Arterial Blood 50.5 H pCO2 (Temp correct) Arterial Blood 50.5 *L pO2 (Temp corrected) Arterial Blood 30.1 H HCO3 Arterial Blood 4.4 H Base Excess Arterial Blood 85.8 L Oxygen Saturation [place] Test ACCEPTAB Arterial Blood Left Radial Gas Puncture Site Arterial 0.8 Blood Carboxyhemo globin Arterial Blood 0.3 Methemoglobin Blood Gas A-a O2 394.3 H Differential Oxyhemoglobin 84.9 L Percent Blood Gas 37.0 Temperature Blood Gas 20.0 Respiration Rate Blood Gas Actual 30 Respiration Rate Blood Gas VENT - AC Modality FiO2 70.0 Blood Gas Tidal 400.0 Volume Blood Gas Low 8.0 PEEP Setting Blood Gas YABEL RN Critical Value Read Back Blood Gas TM Notified Whom Blood Gas 11/01/2018 10:13: Notified Time 41 AM Test 11/01/18 13:44 Bedside Glucose 78 Medications Medication Current Medications Acetaminophen (Tylenol Liquid) 650 mg Q4H PRN GTB MILD PAIN(1-3)OR ELEVATED TEMP Last administered on 10/16/18 07:52; Admin Dose 650 MG; Start 10/09/18 at 14:00 Al Hydrox/Mg Hydrox/Simethicone (Mag-Al Plus) 15 ml Q6H PRN PO GASTROINTESTINAL UPSET Last administered on 10/17/18 13:18; Admin Dose 15 ML; Start 10/09/18 at 14:00 Eye Lubricant (Artificial Tears Oph) 1 drop Q6H PRN BOTH EYES DRY EYES Last administered on 11/01/18 08:54; Admin Dose 1 DROP; Start 10/09/18 at 14:00 Bisacodyl (Dulcolax Supp) 10 mg DAILY PRN [place] CONSTIPATION; Start 10/09/18 at 14:00 Clonidine (Catapres) 0.1 mg DAILY PRN GTB ELEVATED BLOOD PRESSURE; Start 10/09/18 at 14:00 Diltiazem HCl (Cardizem Iv) 5 mg Q4 PRN IV ELEVATED HEART RATE Last administered on 10/18/18 01:09; Admin Dose 5 MG; Start 10/09/18 at 14:00 Diphenhydramine HCl (Benadryl Liquid Cup) 25 mg Q6 PRN GTB ITCHING Last administered on 10/22/18 20:25; Admin Dose 25 MG; Start 10/09/18 at 14:00 Duloxetine HCl (Cymbalta) 30 mg DAILY PO Last administered on 11/01/18 08:52; Admin Dose 30 MG; Start 10/10/18 at 09:00 Gabapentin (Neurontin Liquid) 400 mg Q8 GTB Last administered on 11/01/18 05:5 6; Admin Dose 400 MG; Start 10/09/18 at 15:30 Hydralazine HCl (Apresoline) 10 mg Q4H PRN IV ELEVATED BLOOD PRESSURE; Start 10/09/18 at 14:00 Hydroxychloroquine Sulfate (Plaquenil) 200 mg BID PO Last administered on 11/01/18 08:52; Admin Dose 200 MG; Start 10/09/18 at 21:00 Diagnostic Test (Pha) (Accu-Chek) 1 ea 02 XX Last administered on 11/01/18 02:16; Admin Dose 1 EA; Start 10/10/18 at 02:00 Insulin Aspart (Novolog Insulin Pen) NOVOLOG *CUSTOM* ALGORITHM Q6H SC Last administered on 10/29/18 20:36; Admin Dose 1 UNIT; Start 10/09/18 at 14:00 Lactobacillus Acidophilus (Florajen3 Capsule) 1 each BID GTB Last administered on 11/01/18 09:27; Admin Dose 1 EACH; Start 10/09/18 at 21:00 Lansoprazole (Prevacid) 30 mg BID@06,18 GTB Last administered on 11/01/18 05:56; Admin Dose 30 MG; Start 10/09/18 at 18:00 Levetiracetam (Keppra Liquid) 500 mg BID GTB Last administered on 11/01/18 08:51; Admin Dose 500 MG; Start 10/09/18 at 21:00 Magnesium Oxide (Mag-Ox 400) 400 mg BID GTB Last administered on 11/01/18 08:52; Admin Dose 400 MG; Start 10/09/18 at 21:00 Metoclopramide HCl (Reglan) 10 mg TID IV Last administered on 11/01/18 13:48; Admin Dose 10 MG; Start 10/09/18 at 21:00 Miconazole Nitrate (Miconazole 2% Cr) 1 applic BID TOP Last administered on 3/19/19at 08:54; Admin Dose 1 APPLIC; Start 10/09/18 at 21:00 Miconazole Nitrate (Miconazole 2% Cr) 1 applic Q12 PRN TOP rash; Start 10/09/18 at 14:00 Ondansetron HCl (Zofran Inj) 4 mg Q4H PRN IV NAUSEA AND/OR VOMITING Last administered on 10/19/18 16:37; Admin Dose 4 MG; Start 10/09/18 at 14:00 Polyethylene Glycol (Miralax) 17 gm DAILY PRN GTB CONSTIPATION; Start 10/09/18 at 14:00 Senna (Senokot) 2 tab Q8 PRN PO CONSTIPATION; Start 10/09/18 at 14:00 Trimethoprim/ Sulfamethoxazole (Bactrim Susp) 40 ml DAILY GTB Last administered on 11/01/18 08:51; Admin Dose 40 ML; Start 10/10/18 at 09:00 Zolpidem Tartrate (Ambien) 5 mg HS PRN PO INSOMNIA Last administered on 10/21/18 02:34; Admin Dose 5 MG; Start 10/09/18 at 14:00 Miscellaneous Information 1 ea NOTE XX ; Start 10/09/18 at 15:00 Glucose (Glutose) 15 gm Q15M PRN PO DECREASED GLUCOSE; Start 10/09/18 at 15:00 Glucose (Glutose) 22.5 gm Q15M PRN PO DECREASED GLUCOSE; Start 10/09/18 at 15:00 Dextrose (D50w Syringe) 25 ml Q15M PRN IV DECREASED GLUCOSE; Start 10/09/18 at 15:00 Dextrose (D50w Syringe) 50 ml Q15M PRN IV DECREASED GLUCOSE; Start 10/09/18 at 15:00 Glucagon (Glucagen) 1 mg Q15M PRN IM DECREASED GLUCOSE; Start 10/09/18 at 15:00 Glucose (Glutose) 15 gm Q15M PRN BUCCAL DECREASED GLUCOSE; Start 10/09/18 at 15:00 Sodium Chloride 500 ml @ 500 mls/hr Q1H PRN IV BLOOD PRESSURE SUPPORT Last administered on 10/31/18 03:35; Admin Dose 500 MLS/HR; Start 10/09/18 at 19:30 Albuterol (Ventolin Hfa) 4 puff Q6H RESP THERAPY INH Last administered on 11/01/18at 13:57; Admin Dose 4 PUFF; Start 10/10/18 at 02:00 Ipratropium [place] (Atrovent Hfa) 4 puff Q6H RESP THERAPY INH Last administered on 11/01/18 13:57; Admin Dose 4 PUFF; Start 10/10/18 at 02:00 Lorazepam (Ativan) 1 mg Q4H PRN GTB AGITATION/ANXIETY Last administered on 11/01/18 12:08; Admin Dose 1 MG; Start 10/14/18 at 13:00 Linagliptin (Tradjenta) 5 mg DAILY PO Last administered on 11/01/18 08:52; Admin Dose 5 MG; Start 10/16/18 at 10:30 Fentanyl (Duragesic 50 Mcg/Hr Patch) 1 patch Q72H TRANSDERM Last administered on 10/29/18 21:43; Admin Dose 1 PATCH; Start 10/17/18 at 20:30 Lorazepam (Ativan) 2 mg Q6H GTB Last administered on 11/01/18 09:27; Admin Dose 2 MG; Start 10/20/18 at 15:00 Quetiapine Fumarate (Seroquel) 100 mg BID GTB Last administered on 11/01/18 08:52; Admin Dose 100 MG; Start 10/21/18 at 21:00 Hydromorphone HCl (Dilaudid) 6 mg Q4H PRN PO MODERATE PAIN LEVEL 7-10 Last administered on 11/01/18 11:31; Admin Dose 6 MG; Start 10/21/18 at 22:00 Calcium Carbonate (Ca Carbonate) 1,250 mg QID GTB Last administered on 11/01/18 13:47; Admin Dose 1,250 MG; Start 10/24/18 at 13:00 Calcitriol (Rocaltrol) 1 mcg BID PO Last administered on 11/01/18 11:20; Admin Dose 1 MCG; Start 10/28/18 at 09:00 Metoprolol Tartrate (Lopressor) 5 mg Q4H PRN IV HR>110 Hold SBP<100; Start 10/28/18 at 12:30 Hydrocortisone (Cortef) 10 mg QAM PEG Last administered on 11/01/18 11:20; Admin Dose 10 MG; Start 10/31/18 at 11:30 Hydrocortisone (Cortef) 5 mg AC DINNER PEG Last administered on 10/31/18at 16:07; Admin Dose 5 MG; Start 10/31/18 at 17:05 Hydrocortisone (Cortef) 2.5 mg QHS PEG Last administered on 10/31/18at 20:30; Admin Dose 2.5 MG; Start 10/31/18 at 21:00 Carvedilol (Coreg) 3.125 mg BID PO ; Start 11/01/18 at 21:00 Phenylephrine HCl 40 mg/Dextrose 250 ml @ 37.5 mls/hr TITRATE IV ; Start 11/01/18 at 13:30 CAMELIA VALENTINE MD Nov 01, 2018 16:09
--- NOTE | 2018-11-01 16:16 | CONS ---
Assessment/Plan Assessment/Plan Hospital Course (Demo Recall) # sepsis, respiratory - recurrent sepsis on 10/08/2018 due to aspiration pneumonia, HCAP, improved - possible aspiration pneumonia, recurrent pneumonia due to citrobacter, improved - acute on chronic hypoxic and hypercarbic respiratory failure - persistent leukocytosis likely due to steroid margination - h/o tracheostomy on 08/26/2018 - h/o "Increased mild left apical pneumothorax" per CXR on 09/19/2018; no pneumothorax mentioned on subsequent CXR - h/o pneumomediastinum - h/o VAT on 08/11/2018 - h/o asthma/COPD exacerbation - h/o acute tracheobronchitis - h/o MAC infection but CT chest did not demonstrate features suggestive of this per chart review - On this admission AFB smear x3 have been negative (10/21/18 0600, 10/21/18 1530, and 10/22/18 0040), pneumocystis jiroveci 10/18/18 not detected. Coccioides screen negative. TB Quant Gold neg. - h/o HCAP due to citrobacter, based on resp culture on 09/13/2018 - h/o aspergillus growing out of resp culture per (pulm note by Dr. Lopez) on 07/25/2018 - h/o elevated 1,3 Rivy-S-pfnplu level = 232 on 08/06/2018 - h/o MSSA septicemia # GI - diarrhea, C diff on 10/09/2018 was negative - h/o HSV esophagitis, took acyclovir x21 days from 08/26/2018 - h/o EGD, esophageal biopsy showed esophageal squamous mucosa showing acute inflammation, granulation tissue, and ulceration consistent with ulcerative esophagitis, rare multinucleated cells with morphology suggestive of vial cytopathic changes, No cardiac mucosa, intestinal metaplasia, dysplasia, or malignancy defined - GERD - PUD # renal/ - Hypokalemia, recurrent - CKD 2 - BPH # cardiac - tachycardia, persistent - ACD - HTN - HLD # endo - T2DM - Hgb A1c 7.2% - secondary adrenal insufficiency; steroid dependent - Hypoparathyroidism - Hypercalcemia - Pamidronate was ordered # neuro - toxic metabolic encephalopathy - Cervical myopathy - Severe cervical spinal cord stenosis with cord compression from C3-C5, s/p laminectomy in ~03/2018 - Chronic pain syndrome - Functional quadriplegia - Seizure d/o # other chronic conditions - RA with chronic steroid dependence - Immunocompromised status - Fibromyalgia - DDD - H/o multiple rib fracture - Pt completed: meropenem (09/25/2018-10/02/2018), vancomycin (09/25/18-09/28/18), pip/tazo (10/09/2018-10/15/2018) Recommendations: - Pending: AFB culture x3 (AFB smear x3 have resulted negative) particular to r/o mycobacterium avium intracellulaire - Continue Bactrim for pneumocystis PPX - Continue to monitor off other systemic antibiotic Plan was d/w RN Lila and with Dr. Davila. Thank you Total critical care time spent: 45 min. Consultation Date/Type/Reason Admit Date/Time Oct 09, 2018 at 12:16 Initial Consult Date 10/12/18 Type of Consult ID Requesting Provider: NOLA VIDAL MD Date/Time of Note DATE: 11/01/18 TIME: 16:15 24 HR Interval Summary Free Text/Dictation Vent weaning was attempted patient did not tolerate, ABG done showed PO2 51, now he is on 100% fio2. There is a family meeting scheduled in two days when all patient's children can arrive and family can be here. Patient received lasix today, per RN after lasix he put out large amount of urine and also had 1L stool from rectal tube. He also became hypotensive and is now on Hector 150mcg. He has remained afebrile. ROS limited, pt was lethargic. Exam/Review of Systems Exam Vitals Vital Signs Date Temp Pulse Resp B/P (MAP) Pulse Ox O2 O2 Flow FiO2 Time Delivery Rate 11/01/18 112 25 96 100 15:19 11/01/18 121/87 Mechanical 15:00 (98) Ventilator 11/01/18 97.7 12:00 Intake and Output 10/31/18 10/31/18 11/01/18 1515:00 23:00 07:00 IntakeIntake Total 970 ml 895 ml 945 ml OutputOutput Total 400 ml 672 ml 720 ml BalanceBalance 570 ml 223 ml 225 ml Allergies Coded Allergies No Known Allergy (Unverified11/01/18) Exam Constitutional: non-verbal, frail, other (lethargic) Head: normocephalic, atraumatic Eyes: nl conjunctiva, nl lids, nl sclera ENMT: nl external ears & nose, nl nasal mucosa & septum, mucosa pink and moist (OP exam limited) Neck: supple, non-tender, other (trach site is midline, there is a mild air leak heard, site c/d/i, on vent, fio2 100%) Respiratory: normal air movement, diminished breath sounds Cardiovascular: regular rate and rhythm, nl pulses, other (RUE PICC site is c/d/i) Gastrointestinal: soft, non-tender, other (GT site is c/d/i, rectal tube in place with liquid stool draining) Male Genitourinary: other (condom catheter in place) Musculoskeletal: nl extremities to inspection Extremities: normal pulses Neurological: lethargic, other (lethargic currently) Skin: nl turgor, other (stage II coccygeal ulcer); No rash or lesions Results Result Diagram: 11/01/18 0420 11/01/18 0420 Results 24hrs Laboratory Tests Test 10/31/18 20:20 11/01/18 02:15 11/01/18 04:20 11/01/18 09:19 Bedside Glucose 114 105 94 White Blood Count 18.2 H Red Blood Count 2.76 L Hemoglobin 8.0 L Hematocrit 26.6 L Mean Corpuscular 96.4 Volume Mean Corpuscular 29.0 Hemoglobin Mean Corpuscular 30.1 L Hemoglobin Concen t Red Cell 18.9 H Distribution Width Platelet Count 212 Mean Platelet 11.6 H Volume Immature 3.200 H Granulocytes % Neutrophils % 76.1 Lymphocytes % 4.1 L Monocytes % 7.6 Eosinophils % 8.8 H Basophils % 0.2 Nucleated Red 0.0 Blood Cells % Immature 0.580 H Granulocytes # Neutrophils # 13.9 H Lymphocytes # 0.8 Monocytes # 1.4 H Eosinophils # 1.6 H Basophils # 0.0 Nucleated Red 0.0 Blood Cells # Sodium Level 135 Potassium Level 3.5 Chloride Level 102 Carbon Dioxide 33 H Level Anion Gap 0 #L Blood Urea 20 Nitrogen Creatinine 0.29 L Est Glomerular > 60 Filtrat Rate mL/min Glucose Level 89 Calcium Level 6.5 L Ionized Calcium 1.0 L (Measured) Blood Gas Blood arterial Specimen Source Arterial Blood 11/01/2018 10:05: Date Drawn 00 AM Arterial Blood pH 7.393 (Temp corrected) Arterial Blood 50.5 H pCO2 (Temp correct) Arterial Blood 50.5 *L pO2 (Temp corrected) Arterial Blood 30.1 H HCO3 Arterial Blood 4.4 H Base Excess Arterial Blood 85.8 L Oxygen Saturation [place] Test ACCEPTAB Arterial Blood Left Radial Gas Puncture Site Arterial 0.8 Blood Carboxyhemo globin Arterial Blood 0.3 Methemoglobin Blood Gas A-a O2 394.3 H Differential Oxyhemoglobin 84.9 L Percent Blood Gas 37.0 Temperature Blood Gas 20.0 Respiration Rate Blood Gas Actual 30 Respiration Rate Blood Gas VENT - AC Modality FiO2 70.0 Blood Gas Tidal 400.0 Volume Blood Gas Low 8.0 PEEP Setting Blood Gas YABEL RN Critical Value Read Back Blood Gas TM Notified Whom Blood Gas 11/01/2018 10:13: Notified Time 41 AM Test 11/01/18 13:44 Bedside Glucose 78 Medications Medication Current Medications Acetaminophen (Tylenol Liquid) 650 mg Q4H PRN GTB MILD PAIN(1-3)OR ELEVATED TEMP Last administered on 10/16/18 07:52; Admin Dose 650 MG; Start 10/09/18 at 14:00 Al Hydrox/Mg Hydrox/Simethicone (Mag-Al Plus) 15 ml Q6H PRN PO GASTROINTESTINAL UPSET Last administered on 10/17/18 13:18; Admin Dose 15 ML; Start 10/09/18 at 14:00 Eye Lubricant (Artificial Tears Oph) 1 drop Q6H PRN BOTH EYES DRY EYES Last administered on 11/01/18 08:54; Admin Dose 1 DROP; Start 10/09/18 at 14:00 Bisacodyl (Dulcolax Supp) 10 mg DAILY PRN [place] CONSTIPATION; Start 10/09/18 at 14:00 Clonidine (Catapres) 0.1 mg DAILY PRN GTB ELEVATED BLOOD PRESSURE; Start 10/09/18 at 14:00 Diltiazem HCl (Cardizem Iv) 5 mg Q4 PRN IV ELEVATED HEART RATE Last administered on 10/18/18 01:09; Admin Dose 5 MG; Start 10/09/18 at 14:00 Diphenhydramine HCl (Benadryl Liquid Cup) 25 mg Q6 PRN GTB ITCHING Last administered on 10/22/18 20:25; Admin Dose 25 MG; Start 10/09/18 at 14:00 Duloxetine HCl (Cymbalta) 30 mg DAILY PO Last administered on 11/01/18 08:52; Admin Dose 30 MG; Start 10/10/18 at 09:00 Gabapentin (Neurontin Liquid) 400 mg Q8 GTB Last administered on 11/01/18 05:56; Admin Dose 400 MG; Start 10/09/18 at 15:30 Hydralazine HCl (Apresoline) 10 mg Q4H PRN IV ELEVATED BLOOD PRESSURE; Start 10/09/18 at 14:00 Hydroxychloroquine Sulfate (Plaquenil) 200 mg BID PO Last administered on 11/01/18 08:52; Admin Dose 200 MG; Start 10/09/18 at 21:00 Diagnostic Test (Pha) (Accu-Chek) 1 ea 02 XX Last administered on 11/01/18 02:16; Admin Dose 1 EA; Start 10/10/18 at 02:00 Insulin Aspart (Novolog Insulin Pen) NOVOLOG *CUSTOM* ALGORITHM Q6H SC Last administered on 10/29/18 20:36; Admin Dose 1 UNIT; Start 10/09/18 at 14:00 Lactobacillus Acidophilus (Florajen3 Capsule) 1 each BID GTB Last administered on 11/01/18 09:27; Admin Dose 1 EACH; Start 10/09/18 at 21:00 Lansoprazole (Prevacid) 30 mg BID@06,18 GTB Last administered on 11/01/18 05:56; Admin Dose 30 MG; Start 10/09/18 at 18:00 Levetiracetam (Keppra Liquid) 500 mg BID GTB Last administered on 11/01/18 08:51; Admin Dose 500 MG; Start 10/09/18 at 21:00 Magnesium Oxide (Mag-Ox 400) 400 mg BID GTB Last administered on 11/01/18 08:52; Admin Dose 400 MG; Start 10/09/18 at 21:00 Metoclopramide HCl (Reglan) 10 mg TID IV Last administered on 11/01/18 13:48; Admin Dose 10 MG; Start 10/09/18 at 21:00 Miconazole Nitrate (Miconazole 2% Cr) 1 applic BID TOP Last administered on 3/19/19at 08:54; Admin Dose 1 APPLIC; Start 10/09/18 at 21:00 Miconazole Nitrate (Miconazole 2% Cr) 1 applic Q12 PRN TOP rash; Start 10/09/18 at 14:00 Ondansetron HCl (Zofran Inj) 4 mg Q4H PRN IV NAUSEA AND/OR VOMITING Last administered on 10/19/18 16:37; Admin Dose 4 MG; Start 10/09/18 at 14:00 Polyethylene Glycol (Miralax) 17 gm DAILY PRN GTB CONSTIPATION; Start 10/09/18 at 14:00 Senna (Senokot) 2 tab Q8 PRN PO CONSTIPATION; Start 10/09/18 at 14:00 Trimethoprim/ Sulfamethoxazole (Bactrim Susp) 40 ml DAILY GTB Last administered on 11/01/18 08:51; Admin Dose 40 ML; Start 10/10/18 at 09:00 Zolpidem Tartrate (Ambien) 5 mg HS PRN PO INSOMNIA Last administered on 10/21/18 02:34; Admin Dose 5 MG; Start 10/09/18 at 14:00 Miscellaneous Information 1 ea NOTE XX ; Start 10/09/18 at 15:00 Glucose (Glutose) 15 gm Q15M PRN PO DECREASED GLUCOSE; Start 10/09/18 at 15:00 Glucose (Glutose) 22.5 gm Q15M PRN PO DECREASED GLUCOSE; Start 10/09/18 at 15:00 Dextrose (D50w Syringe) 25 ml Q15M PRN IV DECREASED GLUCOSE; Start 10/09/18 at 15:00 Dextrose (D50w Syringe) 50 ml Q15M PRN IV DECREASED GLUCOSE; Start 10/09/18 at 15:00 Glucagon (Glucagen) 1 mg Q15M PRN IM DECREASED GLUCOSE; Start 10/09/18 at 15:00 Glucose (Glutose) 15 gm Q15M PRN BUCCAL DECREASED GLUCOSE; Start 10/09/18 at 15:00 Sodium Chloride 500 ml @ 500 mls/hr Q1H PRN IV BLOOD PRESSURE SUPPORT Last administered on 10/31/18 03:35; Admin Dose 500 MLS/HR; Start 10/09/18 at 19:30 Albuterol (Ventolin Hfa) 4 puff Q6H RESP THERAPY INH Last administered on 11/01/18at 13:57; Admin Dose 4 PUFF; Start 10/10/18 at 02:00 Ipratropium [place] (Atrovent Hfa) 4 puff Q6H RESP THERAPY INH Last administered on 11/01/18 13:57; Admin Dose 4 PUFF; Start 10/10/18 at 02:00 Lorazepam (Ativan) 1 mg Q4H PRN GTB AGITATION/ANXIETY Last administered on 11/01/18 12:08; Admin Dose 1 MG; Start 10/14/18 at 13:00 Linagliptin (Tradjenta) 5 mg DAILY PO Last administered on 11/01/18 08:52; Admin Dose 5 MG; Start 10/16/18 at 10:30 Fentanyl (Duragesic 50 Mcg/Hr Patch) 1 patch Q72H TRANSDERM Last administered on 10/29/18 21:43; Admin Dose 1 PATCH; Start 10/17/18 at 20:30 Lorazepam (Ativan) 2 mg Q6H GTB Last administered on 11/01/18 09:27; Admin Dose 2 MG; Start 10/20/18 at 15:00 Quetiapine Fumarate (Seroquel) 100 mg BID GTB Last administered on 11/01/18 08:52; Admin Dose 100 MG; Start 10/21/18 at 21:00 Hydromorphone HCl (Dilaudid) 6 mg Q4H PRN PO MODERATE PAIN LEVEL 7-10 Last administered on 11/01/18 11:31; Admin Dose 6 MG; Start 10/21/18 at 22:00 Calcium Carbonate (Ca Carbonate) 1,250 mg QID GTB Last administered on 13:47; Admin Dose 1,250 MG; Start 10/24/18 at 13:00 Calcitriol (Rocaltrol) 1 mcg BID PO Last administered on 11/01/18 11:20; Admin Dose 1 MCG; Start 10/28/18 at 09:00 Metoprolol Tartrate (Lopressor) 5 mg Q4H PRN IV HR>110 Hold SBP<100; Start 10/28/18 at 12:30 Hydrocortisone (Cortef) 10 mg QAM PEG Last administered on 11/01/18 11:20; Admin Dose 10 MG; Start 10/31/18 at 11:30 Hydrocortisone (Cortef) 5 mg AC DINNER PEG Last administered on 10/31/18at 16:07; Admin Dose 5 MG; Start 10/31/18 at 17:05 Hydrocortisone (Cortef) 2.5 mg QHS PEG Last administered on 10/31/18at 20:30; Admin Dose 2.5 MG; Start 10/31/18 at 21:00 Carvedilol (Coreg) 3.125 mg BID PO ; Start 11/01/18 at 21:00 Phenylephrine HCl 40 mg/Dextrose 250 ml @ 37.5 mls/hr TITRATE IV ; Start 11/01/18 at 13:30 IV Flush (NS 10 ml) 10 ml PRN PRN IV IV PROTOCOL; Start 11/01/18 at 16:30; Status UNV STEVE MOSCOSO NP Nov 01, 2018 16:16
[2018-11-01] MEDS ORDERED: HYDROCORTISONE 100 MG INJ IV ONE (17:30)
--- NOTE | 2018-11-01 17:34 | CONS ---
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 Status: Chronic Comment: His blood pressure is come down since the adjustment of his steroid replacement to standard replacement dosing. I will go ahead and raise his dosage up just in case this is a bit of adrenal insufficiency (2) Rheumatoid arthritis Status: Chronic Comment: Noted. Qualifiers: Rheumatoid arthritis location: unspecified site Rheumatoid factor presence: with rheumatoid factor Qualified Codes: M05.9 - Rheumatoid arthritis with rheumatoid factor, unspecified (3) Chronic steroid use Status: Chronic Comment: Maintain replacement (4) Diabetes mellitus type 2 in nonobese Status: Chronic Comment: Adequate control Consultation Date/Type/Reason Admit Date/Time Oct 09, 2018 at 12:16 Initial Consult Date 10/12/18 Type of Consult Endocrinology Reason for Consultation The usage was iatrogenic adrenal insufficiency; diabetes mellitus type 2; hypocalcemia Requesting Provider: NOLA VIDAL MD Date/Time of Note DATE: 11/01/18 TIME: 17:32 24 HR Interval Summary Free Text/Dictation Somnolent today Exam/Review of Systems Exam Vitals Vital Signs Date Temp Pulse Resp B/P (MAP) Pulse Ox O2 O2 Flow FiO2 Time Delivery Rate 11/01/18 107 21 102/67 94 Mechanical 17:00 (79) Ventilator 11/01/18 100 16:30 11/01/18 98.4 16:00 Intake and Output 10/31/18 10/31/18 11/01/18 1515:00 23:00 07:00 IntakeIntake Total 970 ml 895 ml 945 ml OutputOutput Total 400 ml 672 ml 720 ml BalanceBalance 570 ml 223 ml 225 ml Exam But is having a lot of rectal tube output Results Result Diagram: 11/01/18 0420 11/01/18 0420 Results 24hrs Laboratory Tests Test 10/31/18 20:20 11/01/18 02:15 11/01/18 04:20 11/01/18 09:19 Bedside Glucose 114 105 94 White Blood Count 18.2 H Red Blood Count 2.76 L Hemoglobin 8.0 L Hematocrit 26.6 L Mean Corpuscular 96.4 Volume Mean Corpuscular 29.0 Hemoglobin Mean Corpuscular 30.1 L Hemoglobin Concen t Red Cell 18.9 H Distribution Width Platelet Count 212 Mean Platelet 11.6 H Volume Immature 3.200 H Granulocytes % Neutrophils % 76.1 Lymphocytes % 4.1 L Monocytes % 7.6 Eosinophils % 8.8 H Basophils % 0.2 Nucleated Red 0.0 Blood Cells % Immature 0.580 H Granulocytes # Neutrophils # 13.9 H Lymphocytes # 0.8 Monocytes # 1.4 H Eosinophils # 1.6 H Basophils # 0.0 Nucleated Red 0.0 Blood Cells # Sodium Level 135 Potassium Level 3.5 Chloride Level 102 Carbon Dioxide 33 H Level Anion Gap 0 #L Blood Urea 20 Nitrogen Creatinine 0.29 L Est Glomerular > 60 Filtrat Rate mL/min Glucose Level 89 Calcium Level 6.5 L Ionized Calcium 1.0 L (Measured) Blood Gas Blood arterial Specimen Source Arterial Blood 11/01/2018 10:05: Date Drawn 00 AM Arterial Blood pH 7.393 (Temp corrected) Arterial Blood 50.5 H pCO2 (Temp correct) Arterial Blood 50.5 *L pO2 (Temp corrected) Arterial Blood 30.1 H HCO3 Arterial Blood 4.4 H Base Excess Arterial Blood 85.8 L Oxygen Saturation [place] Test ACCEPTAB Arterial Blood Left Radial Gas Puncture Site Arterial 0.8 Blood Carboxyhemo globin Arterial Blood 0.3 Methemoglobin Blood Gas A-a O2 394.3 H Differential Oxyhemoglobin 84.9 L Percent Blood Gas 37.0 Temperature Blood Gas 20.0 Respiration Rate Blood Gas Actual 30 Respiration Rate Blood Gas VENT - AC Modality FiO2 70.0 Blood Gas Tidal 400.0 Volume Blood Gas Low 8.0 PEEP Setting Blood Gas YABEL RN Critical Value Read Back Blood Gas TM Notified Whom Blood Gas 11/01/2018 10:13: Notified Time 41 AM Test 11/01/18 13:44 11/01/18 16:40 Bedside Glucose 78 96 Medications Medication Current Medications Acetaminophen (Tylenol Liquid) 650 mg Q4H PRN GTB MILD PAIN(1-3)OR ELEVATED TEMP Last administered on 10/16/18 07:52; Admin Dose 650 MG; Start 10/09/18 at 14:00 Al Hydrox/Mg Hydrox/Simethicone (Mag-Al Plus) 15 ml Q6H PRN PO GASTROINTESTINAL UPSET Last administered on 10/17/18 13:18; Admin Dose 15 ML; Start 10/09/18 at 14:00 Eye Lubricant (Artificial Tears Oph) 1 drop Q6H PRN BOTH EYES DRY EYES Last administered on 11/01/18 08:54; Admin Dose 1 DROP; Start 10/09/18 at 14:00 Bisacodyl (Dulcolax Supp) 10 mg DAILY PRN [place] CONSTIPATION; Start 10/09/18 at 14:00 Clonidine (Catapres) 0.1 mg DAILY PRN GTB ELEVATED BLOOD PRESSURE; Start 10/09/18 at 14:00 Diltiazem HCl (Cardizem Iv) 5 mg Q4 PRN IV ELEVATED HEART RATE Last administered on 10/18/18 01:09; Admin Dose 5 MG; Start 10/09/18 at 14:00 Diphenhydramine HCl (Benadryl Liquid Cup) 25 mg Q6 PRN GTB ITCHING Last administered on 10/22/18 20:25; Admin Dose 25 MG; Start 10/09/18 at 14:00 Duloxetine HCl (Cymbalta) 30 mg DAILY PO Last administered on 11/01/18 08:52; Admin Dose 30 MG; Start 10/10/18 at 09:00 Gabapentin (Neurontin Liquid) 400 mg Q8 GTB Last administered on 11/01/18 05:56; Admin Dose 400 MG; Start 10/09/18 at 15:30 Hydralazine HCl (Apresoline) 10 mg Q4H PRN IV ELEVATED BLOOD PRESSURE; Start 10/09/18 at 14:00 Hydroxychloroquine Sulfate (Plaquenil) 200 mg BID PO Last administered on 08:52; Admin Dose 200 MG; Start 10/09/18 at 21:00 Diagnostic Test (Pha) (Accu-Chek) 1 ea 02 XX Last administered on 11/01/18 02:16; Admin Dose 1 EA; Start 10/10/18 at 02:00 Insulin Aspart (Novolog Insulin Pen) NOVOLOG *CUSTOM* ALGORITHM Q6H SC Last administered on 10/29/18 20:36; Admin Dose 1 UNIT; Start 10/09/18 at 14:00 Lactobacillus Acidophilus (Florajen3 Capsule) 1 each BID GTB Last administered on 11/01/18 09:27; Admin Dose 1 EACH; Start 10/09/18 at 21:00 Lansoprazole (Prevacid) 30 mg BID@06,18 GTB Last administered on 11/01/18 05:56; Admin Dose 30 MG; Start 10/09/18 at 18:00 Levetiracetam (Keppra Liquid) 500 mg BID GTB Last administered on 11/01/18 08:51; Admin Dose 500 MG; Start 10/09/18 at 21:00 Magnesium Oxide (Mag-Ox 400) 400 mg BID GTB Last administered on 11/01/18 08:52; Admin Dose 400 MG; Start 10/09/18 at 21:00 Metoclopramide HCl (Reglan) 10 mg TID IV Last administered on 11/01/18 13:48; Admin Dose 10 MG; Start 10/09/18 at 21:00 Miconazole Nitrate (Miconazole 2% Cr) 1 applic BID TOP Last administered on 11/01/18 08:54; Admin Dose 1 APPLIC; Start 10/09/18 at 21:00 Miconazole Nitrate (Miconazole 2% Cr) 1 applic Q12 PRN TOP rash; Start 10/09/18 at 14:00 Ondansetron HCl (Zofran Inj) 4 mg Q4H PRN IV NAUSEA AND/OR VOMITING Last administered on 10/19/18at 16:37; Admin Dose 4 MG; Start 10/09/18 at 14:00 Polyethylene Glycol (Miralax) 17 gm DAILY PRN GTB CONSTIPATION; Start 10/09/18 at 14:00 Senna (Senokot) 2 tab Q8 PRN PO CONSTIPATION; Start 10/09/18 at 14:00 Trimethoprim/ Sulfamethoxazole (Bactrim Susp) 40 ml DAILY GTB Last administered on 11/01/18 08:51; Admin Dose 40 ML; Start 10/10/18 at 09:00 Zolpidem Tartrate (Ambien) 5 mg HS PRN PO INSOMNIA Last administered on 10/21/18 02:34; Admin Dose 5 MG; Start 10/09/18 at 14:00 Miscellaneous Information 1 ea NOTE XX ; Start 10/09/18 at 15:00 Glucose (Glutose) 15 gm Q15M PRN PO DECREASED GLUCOSE; Start 10/09/18 at 15:00 Glucose (Glutose) 22.5 gm Q15M PRN PO DECREASED GLUCOSE; Start 10/09/18 at 15:00 Dextrose (D50w Syringe) 25 ml Q15M PRN IV DECREASED GLUCOSE; Start 10/09/18 at 15:00 Dextrose (D50w Syringe) 50 ml Q15M PRN IV DECREASED GLUCOSE; Start 10/09/18 at 15:00 Glucagon (Glucagen) 1 mg Q15M PRN IM DECREASED GLUCOSE; Start 10/09/18 at 15:00 Glucose (Glutose) 15 gm Q15M PRN BUCCAL DECREASED GLUCOSE; Start 10/09/18 at 15:00 Sodium Chloride 500 ml @ 500 mls/hr Q1H PRN IV BLOOD PRESSURE SUPPORT Last administered on 10/31/18 03:35; Admin Dose 500 MLS/HR; Start 10/09/18 at 19:30 Albuterol (Ventolin Hfa) 4 puff Q6H RESP THERAPY INH Last administered on 11/01/18 13:57; Admin Dose 4 PUFF; Start 10/10/18 at 02:00 Ipratropium [place] (Atrovent Hfa) 4 puff Q6H RESP THERAPY INH Last administered on 11/01/18 13:57; Admin Dose 4 PUFF; Start 10/10/18 at 02:00 Lorazepam (Ativan) 1 mg Q4H PRN GTB AGITATION/ANXIETY Last administered on 11/01/18 12:08; Admin Dose 1 MG; Start 10/14/18 at 13:00 Linagliptin (Tradjenta) 5 mg DAILY PO Last administered on 11/01/18 08:52; Admin Dose 5 MG; Start 10/16/18 at 10:30 Fentanyl (Duragesic 50 Mcg/Hr Patch) 1 patch Q72H TRANSDERM Last administered on 10/29/18 21:43; Admin Dose 1 PATCH; Start 10/17/18 at 20:30 Lorazepam (Ativan) 2 mg Q6H GTB Last administered on 11/01/18 09:27; Admin Dose 2 MG; Start 10/20/18 at 15:00 Quetiapine Fumarate (Seroquel) 100 mg BID GTB Last administered on 11/01/18 08:52; Admin Dose 100 MG; Start 10/21/18 at 21:00 Hydromorphone HCl (Dilaudid) 6 mg Q4H PRN PO MODERATE PAIN LEVEL 7-10 Last adm inistered on 11/01/18 11:31; Admin Dose 6 MG; Start 10/21/18 at 22:00 Calcium Carbonate (Ca Carbonate) 1,250 mg QID GTB Last administered on 11/01/18at 13:47; Admin Dose 1,250 MG; Start 10/24/18 at 13:00 Calcitriol (Rocaltrol) 1 mcg BID PO Last administered on 11/01/18 11:20; Admin Dose 1 MCG; Start 10/28/18 at 09:00 Metoprolol Tartrate (Lopressor) 5 mg Q4H PRN IV HR>110 Hold SBP<100; Start at 12:30 Hydrocortisone (Cortef) 10 mg QAM PEG Last administered on 11/01/18at 11:20; Admin Dose 10 MG; Start 10/31/18 at 11:30 Hydrocortisone (Cortef) 5 mg AC DINNER PEG Last administered on 10/31/18at 16:07; Admin Dose 5 MG; Start 10/31/18 at 17:05 Hydrocortisone (Cortef) 2.5 mg QHS PEG Last administered on 10/31/18at 20:30; Admin Dose 2.5 MG; Start 10/31/18 at 21:00 Carvedilol (Coreg) 3.125 mg BID PO ; Start 11/01/18 at 21:00 Phenylephrine HCl 40 mg/Dextrose 250 ml @ 37.5 mls/hr TITRATE IV ; Start 11/01/18 at 13:30 IV Flush (NS 10 ml) 10 ml PRN PRN IV IV PROTOCOL; Start 11/01/18 at 16:30 KEV ISSA MD Nov 01, 2018 17:34
--- NOTE | 2018-11-01 19:56 | PN ---
Date/Time of Note Date/Time of Note DATE: 11/01/18 TIME: 19:51 Assessment/Plan VTE Prophylaxis Risk score (from Ns)>0 risk: 10 SCD applied (from Ns): Yes Pharmacological prophylaxis: NA/contraindicated Pharm contraindication: other Lines/Catheters IV Catheter Type (from Nrsg): PICC Line Central line still needed: Yes Urinary Cath still in place: No Assessment/Plan Hospital Course Patient was started on Phenylephrine gtt due to drop in blood pressure. hypoxemia per ABG in the morning, patient FiO2 increased to 100% currently at 80% PEEP of 8. Afebrile. Assessment/Plan - Acute on chronic hypoxemic respiratory failure with underlying ARDS, continue ventilatory support. Dr. Villa is following in pulmonology consultation. - Acute kidney injury, continue to monitor BUN and creatinine. G-tube feeding changed to renal source. Dr. Hobson is following in nephrology consultation. -Tachycardia, Dr. Joshi is following in cardiology consultation. - Cardiomyopathy with EF 35-40% - Rheumatoid arthritis with steroid dependence. The patient's pain seems to be controlled with the current dose of fentanyl. - Dysphagia. Continue GT feeding. - Anemia of chronic disease. - Hypoparathyroidism with recent hypercalcemia, status post pamidronate. - Hypertension. - Functional quadriplegia - Hx of severe cervical spinal cord stenosis with cord compression from C3-C5, s/p laminectomy. - History of fibromyalgia rheumatica - Hx of VAT on 08/11/2018 - Poor prognosis, Dr. Zurita is asked to see patient in palliative care consultation. Critical care time spent 30 minutes. Further recommendations based on clinical course. Plan of care discussed with Dr. Rosales Result Diagram: 11/01/18 0420 11/01/18 0420 Results 24hrs Laboratory Tests Test 10/31/18 20:20 11/01/18 02:15 11/01/18 04:20 11/01/18 09:19 Bedside Glucose 114 105 94 White Blood Count 18.2 H Red Blood Count 2.76 L Hemoglobin 8.0 L Hematocrit 26.6 L Mean Corpuscular 96.4 Volume Mean Corpuscular 29.0 Hemoglobin Mean Corpuscular 30.1 L Hemoglobin Concen t Red Cell 18.9 H Distribution Width Platelet Count 212 Mean Platelet 11.6 H Volume Immature 3.200 H Granulocytes % Neutrophils % 76.1 Lymphocytes % 4.1 L Monocytes % 7.6 Eosinophils % 8.8 H Basophils % 0.2 Nucleated Red 0.0 Blood Cells % Immature 0.580 H Granulocytes # Neutrophils # 13.9 H Lymphocytes # 0.8 Monocytes # 1.4 H Eosinophils # 1.6 H Basophils # 0.0 Nucleated Red 0.0 Blood Cells # Sodium Level 135 Potassium Level 3.5 Chloride Level 102 Carbon Dioxide 33 H Level Anion Gap 0 #L Blood Urea 20 Nitrogen Creatinine 0.29 L Est Glomerular > 60 Filtrat Rate mL/min Glucose Level 89 Calcium Level 6.5 L Ionized Calcium 1.0 L (Measured) Blood Gas Blood arterial Specimen Source Arterial Blood 11/01/2018 10:05: Date Drawn 00 AM Arterial Blood pH 7.393 (Temp corrected) Arterial Blood 50.5 H pCO2 (Temp correct) Arterial Blood 50.5 *L pO2 (Temp corrected) Arterial Blood 30.1 H HCO3 Arterial Blood 4.4 H Base Excess Arterial Blood 85.8 L Oxygen Saturation Chandler Test ACCEPTAB Arterial Blood Left Radial Gas Puncture Site Arterial 0.8 Blood Carboxyhemo globin Arterial Blood 0.3 Methemoglobin Blood Gas A-a O2 394.3 H Differential Oxyhemoglobin 84.9 L Percent Blood Gas 37.0 Temperature Blood Gas 20.0 Respiration Rate Blood Gas Actual 30 Respiration Rate Blood Gas VENT - AC Modality FiO2 70.0 Blood Gas Tidal 400.0 Volume Blood Gas Low 8.0 PEEP Setting Blood Gas YABEL RN Critical Value Read Back Blood Gas TM Notified Whom Blood Gas 11/01/2018 10:13: Notified Time 41 AM Test 11/01/18 13:44 11/01/18 16:40 Bedside Glucose 78 96 Exam/Review of Systems Exam Vitals Vital Signs Date Temp Pulse Resp B/P (MAP) Pulse Ox O2 O2 Flow FiO2 Time Delivery Rate 11/01/18 106 22 106/62 100 Mechanical 18:45 (77) Ventilator 11/01/18 100 16:30 11/01/18 98.4 16:00 Intake and Output 10/31/18 10/31/18 11/01/18 1515:00 23:00 07:00 IntakeIntake Total 970 ml 895 ml 945 ml OutputOutput Total 400 ml 672 ml 720 ml BalanceBalance 570 ml 223 ml 225 ml Exam Constitutional: alert, oriented, frail Neck: other (trach) Respiratory: diminished breath sounds Cardiovascular: regular rate and rhythm Gastrointestinal: soft, non-tender, other Neurological: nl mental status Results Results 24hrs Laboratory Tests Test 10/31/18 20:20 11/01/18 02:15 11/01/18 04:20 11/01/18 09:19 Bedside Glucose 114 105 94 White Blood Count 18.2 H Red Blood Count 2.76 L Hemoglobin 8.0 L Hematocrit 26.6 L Mean Corpuscular 96.4 Volume Mean Corpuscular 29.0 Hemoglobin Mean Corpuscular 30.1 L Hemoglobin Concen t Red Cell 18.9 H Distribution Width Platelet Count 212 Mean Platelet 11.6 H Volume Immature 3.200 H Granulocytes % Neutrophils % 76.1 Lymphocytes % 4.1 L Monocytes % 7.6 Eosinophils % 8.8 H Basophils % 0.2 Nucleated Red 0.0 Blood Cells % Immature 0.580 H Granulocytes # Neutrophils # 13.9 H Lymphocytes # 0.8 Monocytes # 1.4 H Eosinophils # 1.6 H Basophils # 0.0 Nucleated Red 0.0 Blood Cells # Sodium Level 135 Potassium Level 3.5 Chloride Level 102 Carbon Dioxide 33 H Level Anion Gap 0 #L Blood Urea 20 Nitrogen Creatinine 0.29 L Est Glomerular > 60 Filtrat Rate mL/min Glucose Level 89 Calcium Level 6.5 L Ionized Calcium 1.0 L (Measured) Blood Gas Blood arterial Specimen Source Arterial Blood 11/01/2018 10:05: Date Drawn 00 AM Arterial Blood pH 7.393 (Temp corrected) Arterial Blood 50.5 H pCO2 (Temp correct) Arterial Blood 50.5 *L pO2 (Temp corrected) Arterial Blood 30.1 H HCO3 Arterial Blood 4.4 H Base Excess Arterial Blood 85.8 L Oxygen Saturation Chandler Test ACCEPTAB Arterial Blood Left Radial Gas Puncture Site Arterial 0.8 Blood Carboxyhemo globin Arterial Blood 0.3 Methemoglobin Blood Gas A-a O2 394.3 H Differential Oxyhemoglobin 84.9 L Percent Blood Gas 37.0 Temperature Blood Gas 20.0 Respiration Rate Blood Gas Actual 30 Respiration Rate Blood Gas VENT - AC Modality FiO2 70.0 Blood Gas Tidal 400.0 Volume Blood Gas Low 8.0 PEEP Setting Blood Gas YABEL RN Critical Value Read Back Blood Gas TM Notified Whom Blood Gas 11/01/2018 10:13: Notified Time 41 AM Test 11/01/18 13:44 11/01/18 16:40 Bedside Glucose 78 96 Medications Medication Current Medications Acetaminophen (Tylenol Liquid) 650 mg Q4H PRN GTB MILD PAIN(1-3)OR ELEVATED TEMP Last administered on 10/16/18 07:52; Admin Dose 650 MG; Start 10/09/18 at 14:00 Al Hydrox/Mg Hydrox/Simethicone (Mag-Al Plus) 15 ml Q6H PRN PO GASTROINTESTINAL UPSET Last administered on 10/17/18 13:18; Admin Dose 15 ML; Start 10/09/18 at 14:00 Eye Lubricant (Artificial Tears Oph) 1 drop Q6H PRN BOTH EYES DRY EYES Last administered on 11/01/18 08:54; Admin Dose 1 DROP; Start 10/09/18 at 14:00 Bisacodyl (Dulcolax Supp) 10 mg DAILY PRN OR CONSTIPATION; Start 10/09/18 at 14:00 Clonidine (Catapres) 0.1 mg DAILY PRN GTB ELEVATED BLOOD PRESSURE; Start 10/09/18 at 14:00 Diltiazem HCl (Cardizem Iv) 5 mg Q4 PRN IV ELEVATED HEART RATE Last administ ered on 10/18/18 01:09; Admin Dose 5 MG; Start 10/09/18 at 14:00 Diphenhydramine HCl (Benadryl Liquid Cup) 25 mg Q6 PRN GTB ITCHING Last administered on 10/22/18 20:25; Admin Dose 25 MG; Start 10/09/18 at 14:00 Duloxetine HCl (Cymbalta) 30 mg DAILY PO Last administered on 11/01/18 08:52; Admin Dose 30 MG; Start 10/10/18 at 09:00 Gabapentin (Neurontin Liquid) 400 mg Q8 GTB Last administered on 11/01/18 05:56; Admin Dose 400 MG; Start 10/09/18 at 15:30 Hydralazine HCl (Apresoline) 10 mg Q4H PRN IV ELEVATED BLOOD PRESSURE; Start 10/09/18 at 14:00 Hydroxychloroquine Sulfate (Plaquenil) 200 mg BID PO Last administered on 11/01/18 08:52; Admin Dose 200 MG; Start 10/09/18 at 21:00 Diagnostic Test (Pha) (Accu-Chek) 1 ea 02 XX Last administered on 11/01/18 02:16; Admin Dose 1 EA; Start 10/10/18 at 02:00 Insulin Aspart (Novolog Insulin Pen) NOVOLOG *CUSTOM* ALGORITHM Q6H SC Last administered on 10/29/18 20:36; Admin Dose 1 UNIT; Start 10/09/18 at 14:00 Lactobacillus Acidophilus (Florajen3 Capsule) 1 each BID GTB Last administered on 11/01/18 09:27; Admin Dose 1 EACH; Start 10/09/18 at 21:00 Lansoprazole (Prevacid) 30 mg BID@,18 GTB Last administered on 11/01/18 18:31; Admin Dose 30 MG; Start 10/09/18 at 18:00 Levetiracetam (Keppra Liquid) 500 mg BID GTB Last administered on 11/01/18 08:51; Admin Dose 500 MG; Start 10/09/18 at 21:00 Magnesium Oxide (Mag-Ox 400) 400 mg BID GTB Last administered on 11/01/18 08:52; Admin Dose 400 MG; Start 10/09/18 at 21:00 Metoclopramide HCl (Reglan) 10 mg TID IV Last administered on 11/01/18 13:48; Admin Dose 10 MG; Start 10/09/18 at 21:00 Miconazole Nitrate (Miconazole 2% Cr) 1 applic BID TOP Last administered on 11/01/18 08:54; Admin Dose 1 APPLIC; Start 10/09/18 at 21:00 Miconazole Nitrate (Miconazole 2% Cr) 1 applic Q12 PRN TOP rash; Start 10/09/18 at 14:00 Ondansetron HCl (Zofran Inj) 4 mg Q4H PRN IV NAUSEA AND/OR VOMITING Last administered on 10/19/18 16:37; Admin Dose 4 MG; Start 10/09/18 at 14:00 Polyethylene Glycol (Miralax) 17 gm DAILY PRN GTB CONSTIPATION; Start 10/09/18 at 14:00 Senna (Senokot) 2 tab Q8 PRN PO CONSTIPATION; Start 10/09/18 at 14:00 Trimethoprim/ Sulfamethoxazole (Bactrim Susp) 40 ml DAILY GTB Last administered on 11/01/18 08:51; Admin Dose 40 ML; Start 10/10/18 at 09:00 Zolpidem Tartrate (Ambien) 5 mg HS PRN PO INSOMNIA Last administered on 10/21/18 02:34; Admin Dose 5 MG; Start 10/09/18 at 14:00 Miscellaneous Information 1 ea NOTE XX ; Start 10/09/18 at 15:00 Glucose (Glutose) 15 gm Q15M PRN PO DECREASED GLUCOSE; Start 10/09/18 at 15:00 Glucose (Glutose) 22.5 gm Q15M PRN PO DECREASED GLUCOSE; Start 10/09/18 at 15:00 Dextrose (D50w Syringe) 25 ml Q15M PRN IV DECREASED GLUCOSE; Start 10/09/18 at 15:00 Dextrose (D50w Syringe) 50 ml Q15M PRN IV DECREASED GLUCOSE; Start 10/09/18 at 15:00 Glucagon (Glucagen) 1 mg Q15M PRN IM DECREASED GLUCOSE; Start 10/09/18 at 15:00 Glucose (Glutose) 15 gm Q15M PRN BUCCAL DECREASED GLUCOSE; Start 10/09/18 at 15:00 Sodium Chloride 500 ml @ 500 mls/hr Q1H PRN IV BLOOD PRESSURE SUPPORT Last administered on 10/31/18 03:35; Admin Dose 500 MLS/HR; Start 10/09/18 at 19:30 Albuterol (Ventolin Hfa) 4 puff Q6H RESP THERAPY INH Last administered on 11/01/18 19:50; Admin Dose 4 PUFF; Start 10/10/18 at 02:00 Ipratropium [place] (Atrovent Hfa) 4 puff Q6H RESP THERAPY INH Last administered on 11/01/18 19:49; Admin Dose 4 PUFF; Start 10/10/18 at 02:00 Lorazepam (Ativan) 1 mg Q4H PRN GTB AGITATION/ANXIETY Last administered on 12:08; Admin Dose 1 MG; Start 10/14/18 at 13:00 Linagliptin (Tradjenta) 5 mg DAILY PO Last administered on 11/01/18 08:52; Admin Dose 5 MG; Start 10/16/18 at 10:30 Fentanyl (Duragesic 50 Mcg/Hr Patch) 1 patch Q72H TRANSDERM Last administered on 10/29/18 21:43; Admin Dose 1 PATCH; Start 10/17/18 at 20:30 Lorazepam (Ativan) 2 mg Q6H GTB Last administered on 11/01/18 09:27; Admin Dose 2 MG; Start 10/20/18 at 15:00 Quetiapine Fumarate (Seroquel) 100 mg BID GTB Last administered on 11/01/18 08:52; Admin Dose 100 MG; Start 10/21/18 at 21:00 Hydromorphone HCl (Dilaudid) 6 mg Q4H PRN PO MODERATE PAIN LEVEL 7-10 Last administered on 11/01/18 11:31; Admin Dose 6 MG; Start 10/21/18 at 22:00 Calcium Carbonate (Ca Carbonate) 1,250 mg QID GTB Last administered on 11/01/18 18:31; Admin Dose 1,250 MG; Start 10/24/18 at 13:00 Calcitriol (Rocaltrol) 1 mcg BID PO Last administered on 11/01/18 11:20; Admin Dose 1 MCG; Start 10/28/18 at 09:00 Metoprolol Tartrate (Lopressor) 5 mg Q4H PRN IV HR>110 Hold SBP<100; Start 10/28/18 at 12:30 Carvedilol (Coreg) 3.125 mg BID PO ; Start 11/01/18 at 21:00 Phenylephrine HCl 40 mg/Dextrose 250 ml @ 37.5 mls/hr TITRATE IV Last administered on 11/01/18 18:28; Admin Dose 37.5 MLS/HR; Start 11/01/18 at 13:30 IV Flush (NS 10 ml) 10 ml PRN PRN IV IV PROTOCOL; Start 11/01/18 at 16:30 Hydrocortisone (Cortef) 20 mg QAM PEG ; Start 11/02/18 at 09:00 Hydrocortisone (Cortef) 20 mg AC DINNER PEG ; Start 11/02/18 at 17:05 Hydrocortisone (Cortef) 20 mg QHS PEG ; Start 11/01/18 at 21:00 Collagenase (Santyl) 1 applic DAILY TOP ; Start 11/01/18 at 19:30 CAROLYN LANGLEY Nov 01, 2018 19:56
[2018-11-01] MEDS: COLLAGENASE 5 GM (UD JAR) TOP SCH (20:53)
[2018-11-01] MEDS: FENTAnyl PATCH 50 MCG/HR TRANSDERM SCH (21:13)
[2018-11-02] VITALS (88 sets, daily range): BP systolic 68–170; BP diastolic 37–96; PULSE 75–119; RESP 14–37
[2018-11-02] MEDS: IPRATROPIUM (HFA) 12.9 GM INHALER INH SCH ×4 (02:12→19:40)
[2018-11-02] MEDS: ALBUTEROL HFA 8 GM INHALER INH SCH ×4 (02:12→19:40)
[2018-11-02] MEDS: LORAZEPAM 1 MG TAB GTB SCH ×5 (02:38→23:49)
[2018-11-02] MEDS: ACCU-CHEK XX SCH (02:38)
[2018-11-02] MEDS: INSULIN ASPART [NOVOLOG] 3 ML PEN SC SCH ×4 (02:44→22:15)
[2018-11-02] MEDS: PHENYLephrine 40 MG in DEXTROSE 5% 246 ML IV SCH ×2 (02:49→09:05)
[2018-11-02] MEDS: GABAPENTIN (50 MG/ML PO SYG) GTB SCH ×3 (06:00→23:57)
[2018-11-02] MEDS: LANSOPRAZOLE 30 MG CAP GTB SCH ×2 (06:19→17:32)
[2018-11-02] MEDS ORDERED: MAGNESIUM SULFATE 2 GM/50 ML 50 ML IVPB ONE (06:30)
[2018-11-02] MEDS: COLLAGENASE 5 GM (UD JAR) TOP SCH (08:34)
[2018-11-02] MEDS: CALCITRIOL 0.5 MCG CAPSULE PO SCH ×2 (08:34→22:16)
[2018-11-02] MEDS: DULOXETINE 30 MG CAP DR PO SCH (08:34)
[2018-11-02] MEDS: LEVETIRACETAM (100 MG/ML) 5ML CUP GTB SCH ×2 (08:34→22:16)
[2018-11-02] MEDS: METOCLOPRAMIDE 10 MG INJ IV SCH ×3 (08:34→22:16)
[2018-11-02] MEDS: L ACIDOPHIL/B LACTIS/B LONGUM CAPSULE GTB SCH ×2 (08:35→22:17)
[2018-11-02] MEDS: HYDROCORTISONE 5 MG TAB PEG SCH ×3 (08:35→22:16)
[2018-11-02] MEDS: HYDROmorphONE 2 MG TAB PO PRN (08:36)
[2018-11-02] MEDS: HYDROXYCHLOROQUINE 200 MG TAB PO SCH ×2 (08:36→22:16)
[2018-11-02] MEDS: LINAGLIPTIN 5 MG TABLET PO SCH (08:37)
[2018-11-02] MEDS: QUETIAPINE 100 MG TAB GTB SCH ×2 (08:37→22:16)
[2018-11-02] MEDS: BALSAM PERU/CASTOR OIL 60 GM TUBE TOP SCH ×2 (08:38→22:18)
[2018-11-02] MEDS: ARTIFICIAL TEARS 15 ML OPH BOTH EYES PRN (08:38)
[2018-11-02] MEDS: MICONAZOLE 2% 30 GM CR TOP SCH ×2 (08:39→22:18)
--- NOTE | 2018-11-02 08:44 | PN ---
DATE: 11/02/2018 SUBJECTIVE: The patient was placed on pressor support. No other events noted. No hemoptysis, hemat emesis or hematochezia. OBJECTIVE: VITAL SIGNS: Blood pressure is 134/92, respirations 35, pulse 99, temperature 98.6. HEENT: Head is normocephalic. NECK: Supple. HEART: Regular rate. LUNGS: Show diminished breath sounds at the base. ABDOMEN: Soft, nontender to palpation without rebound or guarding. EXTREMITIES: Negative for clubbing, cyanosis. Trace edema. DERMATOLOGIC: No rashes. MUSCULOSKELETAL: No joint effusion. NEUROLOGIC: No change in exam. MEDICATIONS: Reviewed. LABORATORY DATA: Shows sodium 134, potassium 3.5, BUN 17, creatinine 0.30, calcium 6.4, magnesium 1. 6. White count 23.1, hemoglobin 7.8, platelet count is 211. The patient's ABG was reviewed. ASSESSMENT AND PLAN: 1. Nonoliguric acute kidney injury on top of previously normal baseline creatinine. Etiology is sec ondary to hemodynamics. Renal function is improved. Continue to monitor, continue supportive care a nd renally dose all medicines. 2. Pulmonary edema. The patient is status post Lasix with excellent urinary output. However, we wi ll hold diuretic therapy as the patient now is on pressor support. We will monitor closely. Repeat chest x-ray. 3. Hypernatremia. Continue free water restriction. 4. Hypomagnesemia. Continue to monitor and replete. 5. Shock, etiology is likely multifactorial secondary to adrenal insufficiency, questionable volume depletion. The patient is currently on pressor support, on IV steroids, on IV antibiotics. We will give patient IV fluids with albumin for volume expansion. Attempt to wean off pressor support. 6. Ventilator-dependent respiratory failure. Vent settings and ABG was reviewed. Continue to monit or. 7. Adrenal insufficiency. The patient is on steroids, Cortef, being managed by endocrinology. 8. Anemia. Monitor hemoglobin and hematocrit levels. 9. Dysphagia. Continue tube feeding. 10. Sepsis, possible septic shock. The patient is on antibiotic therapy. We will continue. Contin ue pressor support, volume expansion. 11. Seizure disorder. Continue medical management. 12. Anxiety disorder. Continue anxiolytics. Dictated By: UNA HONG/EFREN Conf#: [id number] DID#: [id number] CC: CAMELIA VALENTINE MD; NOLA VIDAL MD;*[facility]*
[2018-11-02] MEDS: CA CARBONATE (250 MG/ML) 5ML CUP GTB SCH ×4 (09:06→22:16)
[2018-11-02] MEDS: ALBUMIN HUMAN 25% 100 ML IV SCH ×2 (09:14→17:40)
[2018-11-02] MEDS: TRIMETHOPRIM/SULFAMETHOX (PO SYG) GTB SCH (09:20)
[2018-11-02] MEDS: MAGNESIUM OXIDE 400 MG TAB GTB SCH ×2 (09:20→22:17)
--- NOTE | 2018-11-02 09:33 | CONS ---
Assessment/Plan Assessment/Plan Assessment/Plan (Daily) Ventilator setting; AC of 20, tidal volume 400, PEEP of 8, 80% FiO2. Assessment and recommendations; 1. Patient admitted to ICU because of worsening hypoxemia and possibly recurrent pneumonia with a history of severe ARDS and severe chronic hypoxemia. Maintained on 80% FiO2 with persistently poor blood gas showing hypoxemic and hypercapnic respiratory failure despite aggressive invasive mechanical ventilation. Chest x-ray showing persistent ARDS pattern. 2. History of HSV esophagitis. 3. History of incomplete quadriplegia. 4. Patient maintained on prophylactic Bactrim dosing. Continue current supportive care. Prognosis appears very poor. We will try to wean down FiO2 as tolerated. CODE STATUS needs to be addressed with the family as well as the patient. Consultation Date/Type/Reason Admit Date/Time Oct 09, 2018 at 12:16 Initial Consult Date 10/12/18 Type of Consult Pulmonary/critical care Patient's condition is stable. Remains completely awake and alert. Has remained hemodynamically stable. Patient also has been switched over to volume control ventilation from pressure-controlled mode. General exam; middle-aged male, on ventilator via tracheostomy, awake and alert. Watching television. Currently in no distress. Area Requesting Provider: NOLA VIDAL MD Date/Time of Note DATE: 11/02/18 TIME: 09:30 24 HR Interval Summary Free Text/Dictation Patient's condition remains stable. On 80% FiO2. Has remained hemodynamically stable. General exam; middle-aged male, on ventilator via tracheostomy, awake and alert. Currently in no distress. Exam/Review of Systems Exam Vitals Vital Signs Date Temp Pulse Resp B/P (MAP) Pulse Ox O2 O2 Flow FiO2 Time Delivery Rate 11/02/18 98 08:00 11/02/18 70 08:00 11/02/18 96.6 19 98/62 (74) 90 Mechanical 08:00 Ventilator Intake and Output 11/01/18 11/01/18 11/02/18 1515:00 23:00 07:00 IntakeIntake Total 1057.5 ml 738.750 ml 799.695 ml OutputOutput Total 1520 ml 2170 ml 1100 ml BalanceBalance -462.5 ml -1431.250 ml -300.305 ml Exam H EENT exam; supple neck, no JVD. No lymphadenopathy. Midline trachea. No thyromegaly. Patient is edentulous. Tracheostomy in place. Insertion site is clean. Chest exam; diminished breath sounds bilaterally S1-S2 audible, no murmurs. Regular rhythm. Abdomen exam; soft, nondistended. G-tube in place. Bowel sounds audible. Extremity exam; no peripheral edema. [employer] exam; patient awake appropriately responsive, able to move both upper extremities with mild weakness exhibiting stable paraplegia. Results Result Diagram: 11/02/18 0424 11/02/18 0424 Results 24hrs Laboratory Tests Test 11/01/18 13:44 11/01/18 16:40 11/01/18 20:49 11/02/18 02:37 Bedside Glucose 78 96 111 198 Test 11/02/18 04:24 11/02/18 08:44 White Blood Count 23.1 #H Red Blood Count 2.72 L Hemoglobin 7.8 L Hematocrit 26.1 L Mean Corpuscular 96.0 Volume Mean Corpuscular 28.7 L Hemoglobin Mean Corpuscular 29.9 L Hemoglobin Concent Red Cell 18.3 H Distribution Width Platelet Count 211 Mean Platelet Volume 12.0 H Immature 3.100 H Granulocytes % Neutrophils % 87.5 H Lymphocytes % 3.2 L Monocytes % 4.1 Eosinophils % 1.9 Basophils % 0.2 Nucleated Red Blood 0.0 Cells % Immature 0.720 H Granulocytes # Neutrophils # 20.3 H Lymphocytes # 0.7 L Monocytes # 1.0 H Eosinophils # 0.4 Basophils # 0.0 Nucleated Red Blood 0.0 Cells # Sodium Level 134 L Potassium Level 3.5 Chloride Level 98 Carbon Dioxide Level 34 H Anion Gap 2 L Blood Urea Nitrogen 17 Creatinine 0.30 L Est Glomerular > 60 Filtrat Rate mL/min Glucose Level 202 # Calcium Level 6.4 L Phosphorus Level 3.6 Magnesium Level 1.6 L Bedside Glucose 126 Medications Medication Current Medications Acetaminophen (Tylenol Liquid) 650 mg Q4H PRN GTB MILD PAIN(1-3)OR ELEVATED TEMP Last administered on 10/16/18 07:52; Admin Dose 650 MG; Start 10/09/18 at 14:00 Al Hydrox/Mg Hydrox/Simethicone (Mag-Al Plus) 15 ml Q6H PRN PO GASTROINTESTINAL UPSET Last administered on 10/17/18 13:18; Admin Dose 15 ML; Start 10/09/18 at 14:00 Eye Lubricant (Artificial Tears Oph) 1 drop Q6H PRN BOTH EYES DRY EYES Last administered on 11/02/18 08:38; Admin Dose 1 DROP; Start 10/09/18 at 14:00 Bisacodyl (Dulcolax Supp) 10 mg DAILY PRN [place] CONSTIPATION; Start 10/09/18 at 14:00 Clonidine (Catapres) 0.1 mg DAILY PRN GTB ELEVATED BLOOD PRESSURE; Start 10/09/18 at 14:00 Diltiazem HCl (Cardizem Iv) 5 mg Q4 PRN IV ELEVATED HEART RATE Last administered on 10/18/18 01:09; Admin Dose 5 MG; Start 10/09/18 at 14:00 Diphenhydramine HCl (Benadryl Liquid Cup) 25 mg Q6 PRN GTB ITCHING Last administered on 10/22/18 20:25; Admin Dose 25 MG; Start 10/09/18 at 14:00 Duloxetine HCl (Cymbalta) 30 mg DAILY PO Last administered on 11/02/18 08:34; Admin Dose 30 MG; Start 10/10/18 at 09:00 Gabapentin (Neurontin Liquid) 400 mg Q8 GTB Last administered on 11/01/18 21:06; Admin Dose 400 MG; Start 10/09/18 at 15:30 Hydralazine HCl (Apresoline) 10 mg Q4H PRN IV ELEVATED BLOOD PRESSURE; Start 10/09/18 at 14:00 Hydroxychloroquine Sulfate (Plaquenil) 200 mg BID PO Last administered on 11/02/18 08:36; Admin Dose 200 MG; Start 10/09/18 at 21:00 Diagnostic Test (Pha) (Accu-Chek) 1 ea 02 XX Last administered on 11/02/18 02:38; Admin Dose 1 EA; Start 10/10/18 at 02:00 Insulin Aspart (Novolog Insulin Pen) NOVOLOG *CUSTOM* ALGORITHM Q6H SC Last administered on 11/02/18 02:44; Admin Dose 1 UNIT; Start 10/09/18 at 14:00 Lactobacillus Acidophilus (Florajen3 Capsule) 1 each BID GTB Last administered on 11/02/18 08:35; Admin Dose 1 EACH; Start 10/09/18 at 21:00 Lansoprazole (Prevacid) 30 mg BID@,18 GTB Last administered on 11/02/18 06:19; Admin Dose 30 MG; Start 10/09/18 at 18:00 Levetiracetam (Keppra Liquid) 500 mg BID GTB Last administered on 11/02/18 08:34; Admin Dose 500 MG; Start 10/09/18 at 21:00 Magnesium Oxide (Mag-Ox 400) 400 mg BID GTB Last administered on 11/02/18 09:20; Admin Dose 400 MG; Start 10/09/18 at 21:00 Metoclopramide HCl (Reglan) 10 mg TID IV Last administered on 11/02/18 08:34; Admin Dose 10 MG; Start 10/09/18 at 21:00 Miconazole Nitrate (Miconazole 2% Cr) 1 applic BID TOP Last administered on 11/02/18 08:39; Admin Dose 1 APPLIC; Start 10/09/18 at 21:00 Miconazole Nitrate (Miconazole 2% Cr) 1 applic Q12 PRN TOP rash; Start 10/09/18 at 14:00 Ondansetron HCl (Zofran Inj) 4 mg Q4H PRN IV NAUSEA AND/OR VOMITING Last administered on 10/19/18 16:37; Admin Dose 4 MG; Start 10/09/18 at 14:00 Polyethylene Glycol (Miralax) 17 gm DAILY PRN GTB CONSTIPATION; Start 10/09/18 at 14:00 Senna (Senokot) 2 tab Q8 PRN PO CONSTIPATION; Start 10/09/18 at 14:00 Trimethoprim/ Sulfamethoxazole (Bactrim Susp) 40 ml DAILY GTB Last administered on 11/02/18 09:20; Admin Dose 40 ML; Start 10/10/18 at 09:00 Zolpidem Tartrate (Ambien) 5 mg HS PRN PO INSOMNIA Last administered on 10/21 02:34; Admin Dose 5 MG; Start 10/09/18 at 14:00 Miscellaneous Information 1 ea NOTE XX ; Start 10/09/18 at 15:00 Glucose (Glutose) 15 gm Q15M PRN PO DECREASED GLUCOSE; Start 10/09/18 at 15:00 Glucose (Glutose) 22.5 gm Q15M PRN PO DECREASED GLUCOSE; Start 10/09/18 at 15:00 Dextrose (D50w Syringe) 25 ml Q15M PRN IV DECREASED GLUCOSE; Start 10/09/18 at 15:00 Dextrose (D50w Syringe) 50 ml Q15M PRN IV DECREASED GLUCOSE; Start 10/09/18 at 15:00 Glucagon (Glucagen) 1 mg Q15M PRN IM DECREASED GLUCOSE; Start 10/09/18 at 15:00 Glucose (Glutose) 15 gm Q15M PRN BUCCAL DECREASED GLUCOSE; Start 10/09/18 at 15:00 Sodium Chloride 500 ml @ 500 mls/hr Q1H PRN IV BLOOD PRESSURE SUPPORT Last administered on 10/31/18 03:35; Admin Dose 500 MLS/HR; Start 10/09/18 at 19:30 Albuterol (Ventolin Hfa) 4 puff Q6H RESP THERAPY INH Last administered on 11/02/18 07:31; Admin Dose 4 PUFF; Start 10/10/18 at 02:00 Ipratropium [place] (Atrovent Hfa) 4 puff Q6H RESP THERAPY INH Last administered on 11/02/18 07:31; Admin Dose 4 PUFF; Start 10/10/18 at 02:00 Lorazepam (Ativan) 1 mg Q4H PRN GTB AGITATION/ANXIETY Last administered on 11/01/18 12:08; Admin Dose 1 MG; Start 10/14/18 at 13:00 Linagliptin (Tradjenta) 5 mg DAILY PO Last administered on 11/02/18 08:37; Admin Dose 5 MG; Start 10/16/18 at 10:30 Fentanyl (Duragesic 50 Mcg/Hr Patch) 1 patch Q72H TRANSDERM Last administered on 11/01/18 21:13; Admin Dose 1 PATCH; Start 10/17/18 at 20:30 Lorazepam (Ativan) 2 mg Q6H GTB Last administered on 11/02/18 09:13; Admin Dose 2 MG; Start 10/20/18 at 15:00 Quetiapine Fumarate (Seroquel) 100 mg BID GTB Last administered on 11/02/18 08:37; Admin Dose 100 MG; Start 10/21/18 at 21:00 Hydromorphone HCl (Dilaudid) 6 mg Q4H PRN PO MODERATE PAIN LEVEL 7-10 Last administered on 11/02/18 08:36; Admin Dose 6 MG; Start 10/21/18 at 22:00 Calcium Carbonate (Ca Carbonate) 1,250 mg QID GTB Last administered on 11/02/18 09:06; Admin Dose 1,250 MG; Start 10/24/18 at 13:00 Calcitriol (Rocaltrol) 1 mcg BID PO Last administered on 11/02/18 08:34; Admin Dose 1 MCG; Start 10/28/18 at 09:00 Metoprolol Tartrate (Lopressor) 5 mg Q4H PRN IV HR>110 Hold SBP<100; Start 10/28/18 at 12:30 Carvedilol (Coreg) 3.125 mg BID PO Last administered on 11/01/18 20:54; Admin Dose 3.125 MG; Start 11/01/18 at 21:00 Phenylephrine HCl 40 mg/Dextrose 250 ml @ 37.5 mls/hr TITRATE IV Last administered on 11/02/18 09:05; Admin Dose 11.25 MLS/HR; Start 11/01/18 at 13:30 IV Flush (NS 10 ml) 10 ml PRN PRN IV IV PROTOCOL; Start 11/01/18 at 16:30 Hydrocortisone (Cortef) 20 mg QAM PEG Last administered on 11/02/18 08:35; Admin Dose 20 MG; Start 11/02/18 at 09:00 Hydrocortisone (Cortef) 20 mg AC DINNER PEG ; Start 11/02/18 at 17:05 Hydrocortisone (Cortef) 20 mg QHS PEG Last administered on 11/01/18 21:06; Admin Dose 20 MG; Start 11/01/18 at 21:00 Collagenase (Santyl) 1 applic DAILY TOP Last administered on 11/02/18 08:34; Admin Dose 1 APPLIC; Start 11/01/18 at 19:30 Albumin Human 100 ml @ 100 mls/hr Q8H IV Last administered on 11/02/18 09:14; Admin Dose 100 MLS/HR; Start 11/02/18 at 08:30; Stop 11/03/18 at 01:29 PILAR BERGER 20, 2019 09:33
--- NOTE | 2018-11-02 10:19 | PN ---
Date/Time of Note Date/Time of Note DATE: 11/02/18 TIME: 10:16 Assessment/Plan VTE Prophylaxis Risk score (from Ns)>0 risk: 12 SCD applied (from [facility] [place]): Yes Pharmacological prophylaxis: NA/contraindicated Pharm contraindication: other Lines/Catheters IV [facility] PICC Line Central line still needed: Yes Urinary Cath still in place: No Assessment/Plan Hospital Course Patient continues on Hector-Synephrine drip, continues on vent support with 80% FiO2 and PEEP of 8, patient is lethargic but easily arousable, calm. Assessment/Plan - Acute on chronic hypoxemic respiratory failure with underlying ARDS, continue ventilatory support. Dr. Villa is following in pulmonology consultation. - Acute kidney injury, continue to monitor BUN and creatinine. G-tube feeding changed to renal source. Dr. Hobson is following in nephrology consultation. -Tachycardia, Dr. Joshi is following in cardiology consultation. - Cardiomyopathy with EF 35-40% - Rheumatoid arthritis with steroid dependence. The patient's pain seems to be controlled with the current dose of fentanyl. - Dysphagia. Continue GT feeding. - Anemia of chronic disease. - Hypoparathyroidism - Hypertension. - Functional quadriplegia - Hx of severe cervical spinal cord stenosis with cord compression from C3-C5, s/p laminectomy. - History of fibromyalgia rheumatica - Hx of VAT on 08/11/2018 - Poor prognosis, Dr. Zurita is following in palliative care consultation. Critical care time spent 30 minutes. Further recommendations based on clinical course. Plan of care discussed with Dr. Rosales Result Diagram: 11/02/18 0424 11/02/18 0424 Results 24hrs Laboratory Tests Test 11/01/18 13:44 11/01/18 16:40 11/01/18 20:49 11/02/18 02:37 Bedside Glucose 78 96 111 198 Test 11/02/18 04:24 11/02/18 08:44 White Blood Count 23.1 #H Red Blood Count 2.72 L Hemoglobin 7.8 L Hematocrit 26.1 L Mean Corpuscular 96.0 Volume Mean Corpuscular 28.7 L Hemoglobin Mean Corpuscular 29.9 L Hemoglobin Concent Red Cell 18.3 H Distribution Width Platelet Count 211 Mean Platelet Volume 12.0 H Immature 3.100 H Granulocytes % Neutrophils % 87.5 H Lymphocytes % 3.2 L Monocytes % 4.1 Eosinophils % 1.9 Basophils % 0.2 Nucleated Red Blood 0.0 Cells % Immature 0.720 H Granulocytes # Neutrophils # 20.3 H Lymphocytes # 0.7 L Monocytes # 1.0 H Eosinophils # 0.4 Basophils # 0.0 Nucleated Red Blood 0.0 Cells # Sodium Level 134 L Potassium Level 3.5 Chloride Level 98 Carbon Dioxide Level 34 H Anion Gap 2 L Blood Urea Nitrogen 17 Creatinine 0.30 L Est Glomerular > 60 Filtrat Rate mL/min Glucose Level 202 # Calcium Level 6.4 L Phosphorus Level 3.6 Magnesium Level 1.6 L Bedside Glucose 126 Exam/Review of Systems Exam Vitals Vital Signs Date Temp Pulse Resp B/P (MAP) Pulse Ox O2 O2 Flow FiO2 Time Delivery Rate 11/02/18 98 08:00 11/02/18 70 08:00 11/02/18 96.6 19 98/62 (74) 90 Mechanical 08:00 Ventilator Intake and Output 11/01/18 11/01/18 11/02/18 1515:00 23:00 07:00 IntakeIntake Total 1057.5 ml 738.750 ml 799.695 ml OutputOutput Total 1520 ml 2170 ml 1100 ml BalanceBalance -462.5 ml -1431.250 ml -300.305 ml Exam Constitutional: alert, oriented, frail Neck: other (trach) Respiratory: diminished breath sounds Cardiovascular: regular rate and rhythm Gastrointestinal: soft, non-tender, other Neurological: nl mental status Results Results 24hrs Laboratory Tests Test 11/01/18 13:44 11/01/18 16:40 11/01/18 20:49 11/02/18 02:37 Bedside Glucose 78 96 111 198 Test 11/02/18 04:24 11/02/18 08:44 White Blood Count 23.1 #H Red Blood Count 2.72 L Hemoglobin 7.8 L Hematocrit 26.1 L Mean Corpuscular 96.0 Volume Mean Corpuscular 28.7 L Hemoglobin Mean Corpuscular 29.9 L Hemoglobin Concent Red Cell 18.3 H Distribution Width Platelet Count 211 Mean Platelet Volume 12.0 H Immature 3.100 H Granulocytes % Neutrophils % 87.5 H Lymphocytes % 3.2 L Monocytes % 4.1 Eosinophils % 1.9 Basophils % 0.2 Nucleated Red Blood 0.0 Cells % Immature 0.720 H Granulocytes # Neutrophils # 20.3 H Lymphocytes # 0.7 L Monocytes # 1.0 H Eosinophils # 0.4 Basophils # 0.0 Nucleated Red Blood 0.0 Cells # Sodium Level 134 L Potassium Level 3.5 Chloride Level 98 Carbon Dioxide Level 34 H Anion Gap 2 L Blood Urea Nitrogen 17 Creatinine 0.30 L Est Glomerular > 60 Filtrat Rate mL/min Glucose Level 202 # Calcium Level 6.4 L Phosphorus Level 3.6 Magnesium Level 1.6 L Bedside Glucose 126 Medications Medication Current Medications Acetaminophen (Tylenol Liquid) 650 mg Q4H PRN GTB MILD PAIN(1-3)OR ELEVATED TEMP Last administered on 10/16/18 07:52; Admin Dose 650 MG; Start 10/09/18 at 14:00 Al Hydrox/Mg Hydrox/Simethicone (Mag-Al Plus) 15 ml Q6H PRN PO GASTROINTESTINAL UPSET Last administered on 10/17/18 13:18; Admin Dose 15 ML; Start 10/09/18 at 1 4:00 Eye Lubricant (Artificial Tears Oph) 1 drop Q6H PRN BOTH EYES DRY EYES Last administered on 11/02/18 08:38; Admin Dose 1 DROP; Start 10/09/18 at 14:00 Bisacodyl (Dulcolax Supp) 10 mg DAILY PRN [place] CONSTIPATION; Start 10/09/18 at 14:00 Clonidine (Catapres) 0.1 mg DAILY PRN GTB ELEVATED BLOOD PRESSURE; Start 10/09/18 at 14:00 Diltiazem HCl (Cardizem Iv) 5 mg Q4 PRN IV ELEVATED HEART RATE Last administered on 10/18/18 01:09; Admin Dose 5 MG; Start 10/09/18 at 14:00 Diphenhydramine HCl (Benadryl Liquid Cup) 25 mg Q6 PRN GTB ITCHING Last administered on 10/22/18 20:25; Admin Dose 25 MG; Start 10/09/18 at 14:00 Duloxetine HCl (Cymbalta) 30 mg DAILY PO Last administered on 11/02/18 08:34; Admin Dose 30 MG; Start 10/10/18 at 09:00 Gabapentin (Neurontin Liquid) 400 mg Q8 GTB Last administered on 11/01/18 21:06; Admin Dose 400 MG; Start 10/09/18 at 15:30 Hydralazine HCl (Apresoline) 10 mg Q4H PRN IV ELEVATED BLOOD PRESSURE; Start 10/09/18 at 14:00 Hydroxychloroquine Sulfate (Plaquenil) 200 mg BID PO Last administered on 11/02/18 08:36; Admin Dose 200 MG; Start 10/09/18 at 21:00 Diagnostic Test (Pha) (Accu-Chek) 1 ea 02 XX Last administered on 11/02/18 02:38; Admin Dose 1 EA; Start 10/10/18 at 02:00 Insulin Aspart (Novolog Insulin Pen) NOVOLOG *CUSTOM* ALGORITHM Q6H SC Last administered on 11/02/18 02:44; Admin Dose 1 UNIT; Start 10/09/18 at 14:00 Lactobacillus Acidophilus (Florajen3 Capsule) 1 each BID GTB Last administered on 11/02/18 08:35; Admin Dose 1 EACH; Start 10/09/18 at 21:00 Lansoprazole (Prevacid) 30 mg BID@06,18 GTB Last administered on 11/02/18 0 6:19; Admin Dose 30 MG; Start 10/09/18 at 18:00 Levetiracetam (Keppra Liquid) 500 mg BID GTB Last administered on 11/02/18 08:34; Admin Dose 500 MG; Start 10/09/18 at 21:00 Magnesium Oxide (Mag-Ox 400) 400 mg BID GTB Last administered on 11/02/18 09:20; Admin Dose 400 MG; Start 10/09/18 at 21:00 Metoclopramide HCl (Reglan) 10 mg TID IV Last administered on 11/02/18 08:34; Admin Dose 10 MG; Start 10/09/18 at 21:00 Miconazole Nitrate (Miconazole 2% Cr) 1 applic BID TOP Last administered on 11/02/18 08:39; Admin Dose 1 APPLIC; Start 10/09/18 at 21:00 Miconazole Nitrate (Miconazole 2% Cr) 1 applic Q12 PRN TOP rash; Start 10/09/18 at 14:00 Ondansetron HCl (Zofran Inj) 4 mg Q4H PRN IV NAUSEA AND/OR VOMITING Last administered on 3/6/19at 16:37; Admin Dose 4 MG; Start 10/09/18 at 14:00 Polyethylene Glycol (Miralax) 17 gm DAILY PRN GTB CONSTIPATION; Start 10/09/18 at 14:00 Senna (Senokot) 2 tab Q8 PRN PO CONSTIPATION; Start 10/09/18 at 14:00 Trimethoprim/ Sulfamethoxazole (Bactrim Susp) 40 ml DAILY GTB Last administered on 11/02/18at 09:20; Admin Dose 40 ML; Start 10/10/18 at 09:00 Zolpidem Tartrate (Ambien) 5 mg HS PRN PO INSOMNIA Last administered on 10/21/18 02:34; Admin Dose 5 MG; Start 10/09/18 at 14:00 Miscellaneous Information 1 ea NOTE XX ; Start 10/09/18 at 15:00 Glucose (Glutose) 15 gm Q15M PRN PO DECREASED GLUCOSE; Start 10/09/18 at 15:00 Glucose (Glutose) 22.5 gm Q15M PRN PO DECREASED GLUCOSE; Start 10/09/18 at 15:00 Dextrose (D50w Syringe) 25 ml Q15M PRN IV DECREASED GLUCOSE; Start 10/09/18 at 15:00 Dextrose (D50w Syringe) 50 ml Q15M PRN IV DECREASED GLUCOSE; Start 10/09/18 at 15:00 Glucagon (Glucagen) 1 mg Q15M PRN IM DECREASED GLUCOSE; Start 10/09/18 at 15:00 Glucose (Glutose) 15 gm Q15M PRN BUCCAL DECREASED GLUCOSE; Start 10/09/18 at 15:00 Sodium Chloride 500 ml @ 500 mls/hr Q1H PRN IV BLOOD PRESSURE SUPPORT Last administered on 10/31/18at 03:35; Admin Dose 500 MLS/HR; Start 10/09/18 at 19:30 Albuterol (Ventolin Hfa) 4 puff Q6H RESP THERAPY INH Last administered on 11/02/18 07:31; Admin Dose 4 PUFF; Start 10/10/18 at 02:00 Ipratropium [place] (Atrovent Hfa) 4 puff Q6H RESP THERAPY INH Last administered on 11/02/18at 07:31; Admin Dose 4 PUFF; Start 10/10/18 at 02:00 Lorazepam (Ativan) 1 mg Q4H PRN GTB AGITATION/ANXIETY Last administered on 11/01/18 12:08; Admin Dose 1 MG; Start 10/14/18 at 13:00 Linagliptin (Tradjenta) 5 mg DAILY PO Last administered on 11/02/18 08:37; Admin Dose 5 MG; Start 10/16/18 at 10:30 Fentanyl (Duragesic 50 Mcg/Hr Patch) 1 patch Q72H TRANSDERM Last administered on 11/01/18 21:13; Admin Dose 1 PATCH; Start 10/17/18 at 20:30 Lorazepam (Ativan) 2 mg Q6H GTB Last administered on 11/02/18 09:13; Admin Dose 2 MG; Start 10/20/18 at 15:00 Quetiapine Fumarate (Seroquel) 100 mg BID GTB Last administered on 11/02/18 08:37; Admin Dose 100 MG; Start 10/21/18 at 21:00 Hydromorphone HCl (Dilaudid) 6 mg Q4H PRN PO MODERATE PAIN LEVEL 7-10 Last administered on 11/02/18 08:36; Admin Dose 6 MG; Start 10/21/18 at 22:00 Calcium Carbonate (Ca Carbonate) 1,250 mg QID GTB Last administered on 11/02/18 09:06; Admin Dose 1,250 MG; Start 10/24/18 at 13:00 Calcitriol (Rocaltrol) 1 mcg BID PO Last administered on 11/02/18 08:34; Admin Dose 1 MCG; Start 10/28/18 at 09:00 Metoprolol Tartrate (Lopressor) 5 mg Q4H PRN IV HR>110 Hold SBP<100; Start 10/28/18 at 12:30 Carvedilol (Coreg) 3.125 mg BID PO Last administered on 11/01/18 20:54; Admin Dose 3.125 MG; Start 11/01/18 at 21:00 Phenylephrine HCl 40 mg/Dextrose 250 ml @ 37.5 mls/hr TITRATE IV Last administered on 11/02/18 09:05; Admin Dose 11.25 MLS/HR; Start 11/01/18 at 13:30 IV Flush (NS 10 ml) 10 ml PRN PRN IV IV PROTOCOL; Start 11/01/18 at 16:30 Hydrocortisone (Cortef) 20 mg QAM PEG Last administered on 11/02/18at 08:35; Admin Dose 20 MG; Start 11/02/18 at 09:00 Hydrocortisone (Cortef) 20 mg AC DINNER PEG ; Start 11/02/18 at 17:05 Hydrocortisone (Cortef) 20 mg QHS PEG Last administered on 11/01/18at 21:06; Admin Dose 20 MG; Start 11/01/18 at 21:00 Collagenase (Santyl) 1 applic DAILY TOP Last administered on 11/02/18at 08:34; Admin Dose 1 APPLIC; Start 11/01/18 at 19:30 Albumin Human 100 ml @ 100 mls/hr Q8H IV Last administered on 11/02/18at 09:14; Admin Dose 100 MLS/HR; Start 11/02/18 at 08:30; Stop 11/03/18 at 01:29 CAROLYN LANGLEY Nov 02, 2018 10:19
[2018-11-02] MEDS ORDERED: NORepinephrine 32 MG in DEXTROSE 5% 218 ML IV SCH (11:30)
--- NOTE | 2018-11-02 11:41 | CONS ---
Assessment/Plan Cardiology Heart Failure Type: Acute on Chronic Heart Failure Type: Systolic Assessment/Plan Hospital Course (Demo Recall) IMPRESSION: 1. Tachycardia- S tach. [place] due to anxiety/infection/cardiomyopathy, multifactorial 2. Hypotension-now on pressors 3. Abnormal electrocardiogram at baseline. 4. Chronic respiratory failure, status post tracheostomy.-weaning vent support 5. Dysphagia, status post G-tube. 6. Quadriplegia. 7. Renal insufficiency, on steroids. 8. Chronic obstructive pulmonary disease. 9. Rheumatoid arthritis. 10. Chronic kidney disease. 11. Diabetes mellitus. 12.Adrenal insufficiency 14. cardiomyopathy-EF 35-40% by echo this admit Recc -ICU -Vent support as necessary -Continue abx's and f/u cx data -continue steroids -Would attempt to transition from reece back to levo following HR given low EF -Follow volume status Consultation Date/Type/Reason Admit Date/Time Oct 09, 2018 at 12:16 Initial Consult Date 10/09/18 Type of Consult Cardiology Reason for Consultation hypotension/cardiomyopathy Requesting Provider: NOLA VIDAL MD Date/Time of Note DATE: 11/02/18 TIME: 11:37 Exam/Review of Systems Vital Signs Vitals Vital Signs Date Temp Pulse Resp B/P (MAP) Pulse Ox O2 O2 Flow FiO2 Time Delivery Rate 11/02/18 97 18 90/55 (67) 91 Mechanical 10:00 Ventilator 11/02/18 70 08:00 11/02/18 96.6 08:00 Intake and Output 11/01/18 11/01/18 11/02/18 1515:00 23:00 07:00 IntakeIntake Total 1057.5 ml 738.750 ml 799.695 ml OutputOutput Total 1520 ml 2170 ml 1100 ml BalanceBalance -462.5 ml -1431.250 ml -300.305 ml Exam Exam Review of Systems: CONSTITUTIONAL: No fevers, chills. PULMONARY: trached CARDIOVASCULAR: No chest pain/palpitations GASTROINTESTINAL: No nausea/vomiting. GENITOURINARY: No hematuria/dysuria. MUSCULOSKELETAL: No myagias/arthalgias. PSYCHIATRIC: The patient denies depression. NEUROLOGIC: generalized weakness Constitutional: other (sleeping, arousable) Psych: no complaints Head: normocephalic ENMT: mucosa pink and moist Neck: other (trached) Respiratory: diminished breath sounds (at bases/B) Cardiovascular: regular rate and rhythm Gastrointestinal: soft, non-tender Musculoskeletal: muscle weakness (generalized) Extremities: edema (none) Labs Result Diagram: 11/02/184 11/02/18 0424 Results 24hrs Laboratory Tests Test 11/01/18 13:44 11/01/18 16:40 11/01/18 20:49 11/02/18 02:37 Bedside Glucose 78 96 111 198 Test 11/02/18 04:24 11/02/18 08:44 White Blood Count 23.1 #H Red Blood Count 2.72 L Hemoglobin 7.8 L Hematocrit 26.1 L Mean Corpuscular 96.0 Volume Mean Corpuscular 28.7 L Hemoglobin Mean Corpuscular 29.9 L Hemoglobin Concent Red Cell 18.3 H Distribution Width Platelet Count 211 Mean Platelet Volume 12.0 H Immature 3.100 H Granulocytes % Neutrophils % 87.5 H Lymphocytes % 3.2 L Monocytes % 4.1 Eosinophils % 1.9 Basophils % 0.2 Nucleated Red Blood 0.0 Cells % Immature 0.720 H Granulocytes # Neutrophils # 20.3 H Lymphocytes # 0.7 L Monocytes # 1.0 H Eosinophils # 0.4 Basophils # 0.0 Nucleated Red Blood 0.0 Cells # Sodium Level 134 L Potassium Level 3.5 Chloride Level 98 Carbon Dioxide Level 34 H Anion Gap 2 L Blood Urea Nitrogen 17 Creatinine 0.30 L Est Glomerular > 60 Filtrat Rate mL/min Glucose Level 202 # Calcium Level 6.4 L Phosphorus Level 3.6 Magnesium Level 1.6 L Bedside Glucose 126 Medications Medications Current Medications Acetaminophen (Tylenol Liquid) 650 mg Q4H PRN GTB MILD PAIN(1-3)OR ELEVATED TEMP Last administered on 10/16/18 07:52; Admin Dose 650 MG; Start 10/09/18 at 14:00 Al Hydrox/Mg Hydrox/Simethicone (Mag-Al Plus) 15 ml Q6H PRN PO GASTROINTESTINAL UPSET Last administered on 10/17/18 13:18; Admin Dose 15 ML; Start 10/09/18 at 14:00 Eye Lubricant (Artificial Tears Oph) 1 drop Q6H PRN BOTH EYES DRY EYES Last administered on 11/02/18 08:38; Admin Dose 1 DROP; Start 10/09/18 at 14:00 Bisacodyl (Dulcolax Supp) 10 mg DAILY PRN [place] CONSTIPATION; Start 10/09/18 at 14:00 Clonidine (Catapres) 0.1 mg DAILY PRN GTB ELEVATED BLOOD PRESSURE; Start 10/09/18 at 14:00 Diltiazem HCl (Cardizem Iv) 5 mg Q4 PRN IV ELEVATED HEART RATE Last administered on 10/18/18 01:09; Admin Dose 5 MG; Start 10/09/18 at 14:00 Diphenhydramine HCl (Benadryl Liquid Cup) 25 mg Q6 PRN GTB ITCHING Last administered on 10/22/18 20:25; Admin Dose 25 MG; Start 10/09/18 at 14:00 Duloxetine HCl (Cymbalta) 30 mg DAILY PO Last administered on 11/02/18at 08:34; Admin Dose 30 MG; Start 10/10/18 at 09:00 Gabapentin (Neurontin Liquid) 400 mg Q8 GTB Last administered on 11/01/18 21:06; Admin Dose 400 MG; Start 10/09/18 at 15:30 Hydralazine HCl (Apresoline) 10 mg Q4H PRN IV ELEVATED BLOOD PRESSURE; Start 10/09/18 at 14:00 Hydroxychloroquine Sulfate (Plaquenil) 200 mg BID PO Last administered on 11/02 08:36; Admin Dose 200 MG; Start 10/09/18 at 21:00 Diagnostic Test (Pha) (Accu-Chek) 1 ea 02 XX Last administered on 11/02/18at 02:38; Admin Dose 1 EA; Start 10/10/18 at 02:00 Insulin Aspart (Novolog Insulin Pen) NOVOLOG *CUSTOM* ALGORITHM Q6H SC Last administered on 11/02/18 02:44; Admin Dose 1 UNIT; Start 10/09/18 at 14:00 Lactobacillus Acidophilus (Florajen3 Capsule) 1 each BID GTB Last administered on 11/02/18 08:35; Admin Dose 1 EACH; Start 10/09/18 at 21:00 Lansoprazole (Prevacid) 30 mg BID@,18 GTB Last administered on 11/02/18 06:19; Admin Dose 30 MG; Start 10/09/18 at 18:00 Levetiracetam (Keppra Liquid) 500 mg BID GTB Last administered on 11/02/18 08:34; Admin Dose 500 MG; Start 10/09/18 at 21:00 Magnesium Oxide (Mag-Ox 400) 400 mg BID GTB Last administered on 11/02/18 09:20; Admin Dose 400 MG; Start 10/09/18 at 21:00 Metoclopramide HCl (Reglan) 10 mg TID IV Last administered on 11/02/18 08:34; Admin Dose 10 MG; Start 10/09/18 at 21:00 Miconazole Nitrate (Miconazole 2% Cr) 1 applic BID TOP Last administered on 11/02/18at 08:39; Admin Dose 1 APPLIC; Start 10/09/18 at 21:00 Miconazole Nitrate (Miconazole 2% Cr) 1 applic Q12 PRN TOP rash; Start 10/09/18 at 14:00 Ondansetron HCl (Zofran Inj) 4 mg Q4H PRN IV NAUSEA AND/OR VOMITING Last administered on 10/19/18at 16:37; Admin Dose 4 MG; Start 10/09/18 at 14:00 Polyethylene Glycol (Miralax) 17 gm DAILY PRN GTB CONSTIPATION; Start 10/09/18 at 14:00 Senna (Senokot) 2 tab Q8 PRN PO CONSTIPATION; Start 10/09/18 at 14:00 Trimethoprim/ Sulfamethoxazole (Bactrim Susp) 40 ml DAILY GTB Last administered on 11/02/18 09:20; Admin Dose 40 ML; Start 10/10/18 at 09:00 Zolpidem Tartrate (Ambien) 5 mg HS PRN PO INSOMNIA Last administered on 10/21/18 02:34; Admin Dose 5 MG; Start 10/09/18 at 14:00 Miscellaneous Information 1 ea NOTE XX ; Start 10/09/18 at 15:00 Glucose (Glutose) 15 gm Q15M PRN PO DECREASED GLUCOSE; Start 10/09/18 at 15:00 Glucose (Glutose) 22.5 gm Q15M PRN PO DECREASED GLUCOSE; Start 10/09/18 at 15:00 Dextrose (D50w Syringe) 25 ml Q15M PRN IV DECREASED GLUCOSE; Start 10/09/18 at 15:00 Dextrose (D50w Syringe) 50 ml Q15M PRN IV DECREASED GLUCOSE; Start 10/09/18 at 15:00 Glucagon (Glucagen) 1 mg Q15M PRN IM DECREASED GLUCOSE; Start 10/09/18 at 15:00 Glucose (Glutose) 15 gm Q15M PRN BUCCAL DECREASED GLUCOSE; Start 10/09/18 at 15:00 Sodium Chloride 500 ml @ 500 mls/hr Q1H PRN IV BLOOD PRESSURE SUPPORT Last administered on 10/31/18 03:35; Admin Dose 500 MLS/HR; Start 10/09/18 at 19:30 Albuterol (Ventolin Hfa) 4 puff Q6H RESP THERAPY INH Last administered on 11/02/18 07:31; Admin Dose 4 PUFF; Start 10/10/18 at 02:00 Ipratropium [place] (Atrovent Hfa) 4 puff Q6H RESP THERAPY INH Last administered on 11/02/18 07:31; Admin Dose 4 PUFF; Start 10/10/18 at 02:00 Lorazepam (Ativan) 1 mg Q4H PRN GTB AGITATION/ANXIETY Last administered on 11/01/18 12:08; Admin Dose 1 MG; Start 10/14/18 at 13:00 Linagliptin (Tradjenta) 5 mg DAILY PO Last administered on 11/02/18 08:37; Ad min Dose 5 MG; Start 10/16/18 at 10:30 Fentanyl (Duragesic 50 Mcg/Hr Patch) 1 patch Q72H TRANSDERM Last administered on 11/01/18 21:13; Admin Dose 1 PATCH; Start 10/17/18 at 20:30 Lorazepam (Ativan) 2 mg Q6H GTB Last administered on 11/02/18 09:13; Admin Dose 2 MG; Start 10/20/18 at 15:00 Quetiapine Fumarate (Seroquel) 100 mg BID GTB Last administered on 11/02/18 08:37; Admin Dose 100 MG; Start 10/21/18 at 21:00 Hydromorphone HCl (Dilaudid) 6 mg Q4H PRN PO MODERATE PAIN LEVEL 7-10 Last administered on 11/02/18 08:36; Admin Dose 6 MG; Start 10/21/18 at 22:00 Calcium Carbonate (Ca Carbonate) 1,250 mg QID GTB Last administered on 11/02/18 09:06; Admin Dose 1,250 MG; Start 10/24/18 at 13:00 Calcitriol (Rocaltrol) 1 mcg BID PO Last administered on 11/02/18 08:34; Admin Dose 1 MCG; Start 10/28/18 at 09:00 Metoprolol Tartrate (Lopressor) 5 mg Q4H PRN IV HR>110 Hold SBP<100; Start 10/28/18 at 12:30 Carvedilol (Coreg) 3.125 mg BID PO Last administered on 11/01/18 20:54; Admin Dose 3.125 MG; Start 11/01/18 at 21:00 Phenylephrine HCl 40 mg/Dextrose 250 ml @ 37.5 mls/hr TITRATE IV Last administered on 11/02/18 09:05; Admin Dose 11.25 MLS/HR; Start 11/01/18 at 13:30 IV Flush (NS 10 ml) 10 ml PRN PRN IV IV PROTOCOL; Start 11/01/18 at 16:30 Hydrocortisone (Cortef) 20 mg QAM PEG Last administered on 11/02/18 08:35; Admin Dose 20 MG; Start 11/02/18 at 09:00 Hydrocortisone (Cortef) 20 mg AC DINNER PEG ; Start 11/02/18 at 17:05 Hydrocortisone (Cortef) 20 mg QHS PEG Last administered on 11/01/18 21:06; Admin Dose 20 MG; Start 11/01/18 at 21:00 Collagenase (Santyl) 1 applic DAILY TOP Last administered on 11/02/18 08:34; Admin Dose 1 APPLIC; Start 11/01/18 at 19:30 Albumin Human 100 ml @ 100 mls/hr Q8H IV Last administered on 11/02/18 09:14; Admin Dose 100 MLS/HR; Start 11/02/18 at 08:30; Stop 11/03/18 at 01:29 Norepinephrine 32 mg/Dextrose 250 ml @ 0.47 mls/hr TITRATE IV ; Start 11/02/18 at 11:30; Status BRISA SHAH 20, 2019 11:41
--- NOTE | 2018-11-02 13:33 | CONS ---
Assessment/Plan Assessment/Plan Problems: (1) Hypoparathyroidism Status: Chronic Comment: Continue with calcium replacement. Unfortunately this is a somewhat challenging prognosis given all the other medical issues going on Qualifiers: Hypoparathyroidism type: idiopathic Qualified Codes: E20.0 - Idiopathic hypoparathyroidism (2) Hypocalcemia Onset Date: ~ 10/14/2018 Status: Acute Comment: We will give calcium gluconate IV and correct the magnesium as well as 1 more dose of IV calcitriol (3) Adrenal insufficiency due to steroid withdrawal Status: Chronic Comment: Stable now on higher dose steroids (4) Diabetes mellitus type 2 in nonobese Status: Chronic Comment: Adequate control (5) Hypomagnesemia Status: Acute Comment: Needs more aggressive replacement especially since we can give some IV calcium Consultation Date/Type/Reason Admit Date/Time Oct 09, 2018 at 12:16 Initial Consult Date 10/12/18 Type of Consult Endocrinology Reason for Consultation Hypocalcemia-hypoparathyroidism; hypomagnesemia; respiratory failure; iatrogenic adrenal insufficiency; rheumatoid arthritis with chronic high-dose steroid usage Requesting Provider: NOLA VIDAL MD Date/Time of Note DATE: 11/02/18 TIME: 13:29 24 HR Interval Summary Free Text/Dictation Patient opens eyes and responds. Denies any endocrine side effects Exam/Review of Systems Exam Vitals Vital Signs Date Temp Pulse Resp B/P (MAP) Pulse Ox O2 O2 Flow FiO2 Time Delivery Rate 11/02/18 91 22 95 80 11:20 11/02/18 90/55 (67) Mechanical 10:00 Ventilator 11/02/18 96.6 08:00 Intake and Output 11/01/18 11/01/18 11/02/18 1515:00 23:00 07:00 IntakeIntake Total 1057.5 ml 738.750 ml 799.695 ml OutputOutput Total 1520 ml 2170 ml 1100 ml BalanceBalance -462.5 ml -1431.250 ml -300.305 ml Exam No changes Results Result Diagram: 11/02/18 0424 11/02/18 0424 Results 24hrs Laboratory Tests Test 11/01/18 13:44 11/01/18 16:40 11/01/18 20:49 11/02/18 02:37 Bedside Glucose 78 96 111 198 Test 11/02/18 04:24 11/02/18 08:44 White Blood Count 23.1 #H Red Blood Count 2.72 L Hemoglobin 7.8 L Hematocrit 26.1 L Mean Corpuscular 96.0 Volume Mean Corpuscular 28.7 L Hemoglobin Mean Corpuscular 29.9 L Hemoglobin Concent Red Cell 18.3 H Distribution Width Platelet Count 211 Mean Platelet Volume 12.0 H Immature 3.100 H Granulocytes % Neutrophils % 87.5 H Lymphocytes % 3.2 L Monocytes % 4.1 Eosinophils % 1.9 Basophils % 0.2 Nucleated Red Blood 0.0 Cells % Immature 0.720 H Granulocytes # Neutrophils # 20.3 H Lymphocytes # 0.7 L Monocytes # 1.0 H Eosinophils # 0.4 Basophils # 0.0 Nucleated Red Blood 0.0 Cells # Sodium Level 134 L Potassium Level 3.5 Chloride Level 98 Carbon Dioxide Level 34 H Anion Gap 2 L Blood Urea Nitrogen 17 Creatinine 0.30 L Est Glomerular > 60 Filtrat Rate mL/min Glucose Level 202 # Calcium Level 6.4 L Phosphorus Level 3.6 Magnesium Level 1.6 L Bedside Glucose 126 Medications Medication Current Medications Acetaminophen (Tylenol Liquid) 650 mg Q4H PRN GTB MILD PAIN(1-3)OR ELEVATED TEMP Last administered on 10/16/18 07:52; Admin Dose 650 MG; Start 10/09/18 at 14:00 Al Hydrox/Mg Hydrox/Simethicone (Mag-Al Plus) 15 ml Q6H PRN PO GASTROINTESTINAL UPSET Last administered on 10/17/18 13:18; Admin Dose 15 ML; Start 10/09/18 at 14:00 Eye Lubricant (Artificial Tears Oph) 1 drop Q6H PRN BOTH EYES DRY EYES Last administered on 11/02/18at 08:38; Admin Dose 1 DROP; Start 10/09/18 at 14:00 Bisacodyl (Dulcolax Supp) 10 mg DAILY PRN [place] CONSTIPATION; Start 10/09/18 at 14:00 Clonidine (Catapres) 0.1 mg DAILY PRN GTB ELEVATED BLOOD PRESSURE; Start 10/09/18 at 14:00 Diltiazem HCl (Cardizem Iv) 5 mg Q4 PRN IV ELEVATED HEART RATE Last administered on 10/18/18at 01:09; Admin Dose 5 MG; Start 10/09/18 at 14:00 Diphenhydramine HCl (Benadryl Liquid Cup) 25 mg Q6 PRN GTB ITCHING Last administered on 10/22/18 20:25; Admin Dose 25 MG; Start 10/09/18 at 14:00 Duloxetine HCl (Cymbalta) 30 mg DAILY PO Last administered on 11/02/18 08:34; Admin Dose 30 MG; Start 10/10/18 at 09:00 Gabapentin (Neurontin Liquid) 400 mg Q8 GTB Last administered on 11/01/18 21:06; Admin Dose 400 MG; Start 10/09/18 at 15:30 Hydralazine HCl (Apresoline) 10 mg Q4H PRN IV ELEVATED BLOOD PRESSURE; Start 10/09/18 at 14:00 Hydroxychloroquine Sulfate (Plaquenil) 200 mg BID PO Last administered on 11/02/18 08:36; Admin Dose 200 MG; Start 10/09/18 at 21:00 Diagnostic Test (Pha) (Accu-Chek) 1 ea 02 XX Last administered on 11/02/18 02 :38; Admin Dose 1 EA; Start 10/10/18 at 02:00 Insulin Aspart (Novolog Insulin Pen) NOVOLOG *CUSTOM* ALGORITHM Q6H SC Last administered on 11/02/18 02:44; Admin Dose 1 UNIT; Start 10/09/18 at 14:00 Lactobacillus Acidophilus (Florajen3 Capsule) 1 each BID GTB Last administered on 11/02/18 08:35; Admin Dose 1 EACH; Start 10/09/18 at 21:00 Lansoprazole (Prevacid) 30 mg BID@18 GTB Last administered on 11/02/18 06:19; Admin Dose 30 MG; Start 10/09/18 at 18:00 Levetiracetam (Keppra Liquid) 500 mg BID GTB Last administered on 11/02/18 08:34; Admin Dose 500 MG; Start 10/09/18 at 21:00 Magnesium Oxide (Mag-Ox 400) 400 mg BID GTB Last administered on 11/02/18 09:20; Admin Dose 400 MG; Start 10/09/18 at 21:00 Metoclopramide HCl (Reglan) 10 mg TID IV Last administered on 11/02/18 08:34; Admin Dose 10 MG; Start 10/09/18 at 21:00 Miconazole Nitrate (Miconazole 2% Cr) 1 applic BID TOP Last administered on 11/02/18at 08:39; Admin Dose 1 APPLIC; Start 10/09/18 at 21:00 Miconazole Nitrate (Miconazole 2% Cr) 1 applic Q12 PRN TOP rash; Start 10/09/18 at 14:00 Ondansetron HCl (Zofran Inj) 4 mg Q4H PRN IV NAUSEA AND/OR VOMITING Last administered on 10/19/18at 16:37; Admin Dose 4 MG; Start 10/09/18 at 14:00 Polyethylene Glycol (Miralax) 17 gm DAILY PRN GTB CONSTIPATION; Start 10/09/18 at 14:00 Senna (Senokot) 2 tab Q8 PRN PO CONSTIPATION; Start 10/09/18 at 14:00 Trimethoprim/ Sulfamethoxazole (Bactrim Susp) 40 ml DAILY GTB Last administered on 11/02/18at 09:20; Admin Dose 40 ML; Start 10/10/18 at 09:00 Zolpidem Tartrate (Ambien) 5 mg HS PRN PO INSOMNIA Last administered on 10/21/18 at 02:34; Admin Dose 5 MG; Start 10/09/18 at 14:00 Miscellaneous Information 1 ea NOTE XX ; Start 10/09/18 at 15:00 Glucose (Glutose) 15 gm Q15M PRN PO DECREASED GLUCOSE; Start 10/09/18 at 15:00 Glucose (Glutose) 22.5 gm Q15M PRN PO DECREASED GLUCOSE; Start 10/09/18 at 15:00 Dextrose (D50w Syringe) 25 ml Q15M PRN IV DECREASED GLUCOSE; Start 10/09/18 at 15:00 Dextrose (D50w Syringe) 50 ml Q15M PRN IV DECREASED GLUCOSE; Start 10/09/18 at 15:00 Glucagon (Glucagen) 1 mg Q15M PRN IM DECREASED GLUCOSE; Start 10/09/18 at 15:00 Glucose (Glutose) 15 gm Q15M PRN BUCCAL DECREASED GLUCOSE; Start 10/09/18 at 15:00 Sodium Chloride 500 ml @ 500 mls/hr Q1H PRN IV BLOOD PRESSURE SUPPORT Last administered on 10/31/18at 03:35; Admin Dose 500 MLS/HR; Start 10/09/18 at 19:30 Albuterol (Ventolin Hfa) 4 puff Q6H RESP THERAPY INH Last administered on 11/02/18 07:31; Admin Dose 4 PUFF; Start 10/10/18 at 02:00 Ipratropium [place] (Atrovent Hfa) 4 puff Q6H RESP THERAPY INH Last administered on 11/02/18 07:31; Admin Dose 4 PUFF; Start 10/10/18 at 02:00 Lorazepam (Ativan) 1 mg Q4H PRN GTB AGITATION/ANXIETY Last administered on 11/01/18 12:08; Admin Dose 1 MG; Start 10/14/18 at 13:00 Linagliptin (Tradjenta) 5 mg DAILY PO Last administered on 11/02/18 08:37; Admin Dose 5 MG; Start 10/16/18 at 10:30 Fentanyl (Duragesic 50 Mcg/Hr Patch) 1 patch Q72H TRANSDERM Last administered on 11/01/18 21:13; Admin Dose 1 PATCH; Start 10/17/18 at 20:30 Lorazepam (Ativan) 2 mg Q6H GTB Last administered on 11/02/18 09:13; Admin Dose 2 MG; Start 10/20/18 at 15:00 Quetiapine Fumarate (Seroquel) 100 mg BID GTB Last administered on 11/02/18 08:37; Admin Dose 100 MG; Start 10/21/18 at 21:00 Hydromorphone HCl (Dilaudid) 6 mg Q4H PRN PO MODERATE PAIN LEVEL 7-10 Last administered on 11/02/18 08:36; Admin Dose 6 MG; Start 10/21/18 at 22:00 Calcium Carbonate (Ca Carbonate) 1,250 mg QID GTB Last administered on 11/02/18 09:06; Admin Dose 1,250 MG; Start 10/24/18 at 13:00 Calcitriol (Rocaltrol) 1 mcg BID PO Last administered on 11/02/18 08:34; Admin Dose 1 MCG; Start 10/28/18 at 09:00 Metoprolol Tartrate (Lopressor) 5 mg Q4H PRN IV HR>110 Hold SBP<100; Start 10/28/18 at 12:30 Carvedilol (Coreg) 3.125 mg BID PO Last administered on 11/01/18 20:54; Admin Dose 3.125 MG; Start 11/01/18 at 21:00 Phenylephrine HCl 40 mg/Dextrose 250 ml @ 37.5 mls/hr TITRATE IV Last administered on 11/02/18 09:05; Admin Dose 11.25 MLS/HR; Start 11/01/18 at 13:30 IV Flush (NS 10 ml) 10 ml PRN PRN IV IV PROTOCOL; Start 11/01/18 at 16:30 Hydrocortisone (Cortef) 20 mg QAM PEG Last administered on 11/02/18at 08:35; Admin Dose 20 MG; Start 11/02/18 at 09:00 Hydrocortisone (Cortef) 20 mg AC DINNER PEG ; Start 11/02/18 at 17:05 Hydrocortisone (Cortef) 20 mg QHS PEG Last administered on 11/01/18 21:06; Admin Dose 20 MG; Start 11/01/18 at 21:00 Collagenase (Santyl) 1 applic DAILY TOP Last administered on 11/02/18 08:34; Admin Dose 1 APPLIC; Start 11/01/18 at 19:30 Albumin Human 100 ml @ 100 mls/hr Q8H IV Last administered on 11/02/18 09:14; Admin Dose 100 MLS/HR; Start 11/02/18 at 08:30; Stop 11/03/18 at 01:29 Norepinephrine 32 mg/Dextrose 250 ml @ 0.47 mls/hr TITRATE IV Last administered on 11/02/18at 12:15; Admin Dose 0.47 MLS/HR; Start 11/02/18 at 11:30 Magnesium Sulfate 3 gm/Dextrose 106 ml @ 35.333 mls/ hr ONCE ONCE IVPB ; Start 11/02/18 at 13:30; Stop 11/02/18 at 16:29; Status UNV Calcium Gluconate 2 gm/Dextrose 120 ml @ 60 mls/hr ONCE ONCE IVPB ; Start 11/02/18 at 13:30; Stop 11/02/18 at 15:29; Status UNV KEV ISSA MD Nov 02, 2018 13:33
[2018-11-02] MEDS ORDERED: CALCIUM GLUCONATE 10% 2 GM in DEXTROSE 5% 100 ML IVPB ONE (15:00)
[2018-11-02] MEDS ORDERED: CALCITRIOL 1 MCG INJ IV ONE (15:00)
[2018-11-02] MEDS ORDERED: MAGNESIUM SULFATE 3 GM in DEXTROSE 5% 100 ML IVPB ONE (15:00)
--- NOTE | 2018-11-02 16:50 | CONS ---
Assessment/Plan Assessment/Plan Hospital Course (Demo Recall) # sepsis, respiratory - recurrent sepsis on 10/08/2018 due to aspiration pneumonia, HCAP, improved - possible aspiration pneumonia, recurrent pneumonia due to citrobacter, improved - acute on chronic hypoxic and hypercarbic respiratory failure - persistent leukocytosis likely due to steroid margination - h/o tracheostomy on 08/26/2018 - h/o "Increased mild left apical pneumothorax" per CXR on 09/19/2018; no pneumothorax mentioned on subsequent CXR - h/o pneumomediastinum - h/o VAT on 08/11/2018 - h/o asthma/COPD exacerbation - h/o acute tracheobronchitis - h/o MAC infection but CT chest did not demonstrate features suggestive of this per chart review - On this admission AFB smear x3 have been negative (10/21/18 0600, 10/21/18 1530, and 10/22/18 0040), pneumocystis jiroveci 10/18/18 not detected. Coccioides screen negative. TB Quant Gold neg. - h/o HCAP due to citrobacter, based on resp culture on 09/13/2018 - h/o aspergillus growing out of resp culture per (pulm note by Dr. 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 x21 days from 08/26/2018 - h/o EGD, esophageal biopsy showed esophageal squamous mucosa showing acute inflammation, granulation tissue, and ulceration consistent with ulcerative esophagitis, rare multinucleated cells with morphology suggestive of vial cytopathic changes, No cardiac mucosa, intestinal metaplasia, dysplasia, or malignancy defined - GERD - PUD # renal/ - Hypokalemia, recurrent - CKD 2 - BPH # cardiac - tachycardia, persistent - ACD - HTN - HLD # endo - T2DM - Hgb A1c 7.2% - secondary adrenal insufficiency; steroid dependent - Hypoparathyroidism - Hypercalcemia - Pamidronate was ordered # neuro - toxic metabolic encephalopathy - Cervical myopathy - Severe cervical spinal cord stenosis with cord compression from C3-C5, s/p laminectomy in ~03/2018 - Chronic pain syndrome - Functional quadriplegia - Seizure d/o # other chronic conditions - RA with chronic steroid dependence - Immunocompromised status - Fibromyalgia - DDD - H/o multiple rib fracture - Pt completed: meropenem (09/25/2018-10/02/2018), vancomycin (09/25/18-09/28/18), pip/tazo (10/09/2018-10/15/2018) Recommendations: - Pending: AFB culture x3 (AFB smear x3 have resulted negative) particular to r/o mycobacterium avium intracellulaire - Continue Bactrim for pneumocystis PPX - Continue to monitor off other systemic antibiotic Consultation Date/Type/Reason Admit Date/Time Oct 09, 2018 at 12:16 Initial Consult Date 10/12/18 Requesting Provider: NOLA VIDAL MD Date/Time of Note DATE: 11/02/18 TIME: 16:49 24 HR Interval Summary Free Text/Dictation d/w nurse Lucila Exam/Review of Systems Exam Vitals Vital Signs Date Temp Pulse Resp B/P (MAP) Pulse Ox O2 O2 Flow FiO2 Time Delivery Rate 11/02/18 115 16:00 11/02/18 97.9 24 117/61 99 Mechanical 16:00 (79) Ventilator 11/02/18 70 15:30 Intake and Output 11/01/18 11/01/18 11/02/18 1515:00 23:00 07:00 IntakeIntake Total 1057.5 ml 738.750 ml 879.695 ml OutputOutput Total 1520 ml 2170 ml 1100 ml BalanceBalance -462.5 ml -1431.250 ml -220.305 ml Constitutional: alert, non-verbal Psych: no complaints Head: normocephalic, atraumatic Neck: supple Respiratory: clear to auscultation Cardiovascular: regular rate and rhythm Gastrointestinal: soft Results Result Diagram: 11/02/18 0424 11/02/18 0424 Results 24hrs Laboratory Tests Test 11/01/18 20:49 11/02/18 02:37 11/02/18 04:24 11/02/18 08:44 Bedside Glucose 111 198 126 White Blood Count 23.1 #H Red Blood Count 2.72 L Hemoglobin 7.8 L Hematocrit 26.1 L Mean Corpuscular 96.0 Volume Mean Corpuscular 28.7 L Hemoglobin Mean Corpuscular 29.9 L Hemoglobin Concent Red Cell 18.3 H Distribution Width Platelet Count 211 Mean Platelet Volume 12.0 H Immature 3.100 H Granulocytes % Neutrophils % 87.5 H Lymphocytes % 3.2 L Monocytes % 4.1 Eosinophils % 1.9 Basophils % 0.2 Nucleated Red Blood 0.0 Cells % Immature 0.720 H Granulocytes # Neutrophils # 20.3 H Lymphocytes # 0.7 L Monocytes # 1.0 H Eosinophils # 0.4 Basophils # 0.0 Nucleated Red Blood 0.0 Cells # Sodium Level 134 L Potassium Level 3.5 Chloride Level 98 Carbon Dioxide Level 34 H Anion Gap 2 L Blood Urea Nitrogen 17 Creatinine 0.30 L Est Glomerular > 60 Filtrat Rate mL/min Glucose Level 202 # Calcium Level 6.4 L Phosphorus Level 3.6 Magnesium Level 1.6 L Test 11/02/18 13:59 11/02/18 15:23 Bedside Glucose 159 166 Medications Medication Current Medications Acetaminophen (Tylenol Liquid) 650 mg Q4H PRN GTB MILD PAIN(1-3)OR ELEVATED TEMP Last administered on 10/16/18 07:52; Admin Dose 650 MG; Start 10/09/18 at 14:00 Al Hydrox/Mg Hydrox/Simethicone (Mag-Al Plus) 15 ml Q6H PRN PO GASTROINTESTINAL UPSET Last administered on 10/17/18 13:18; Admin Dose 15 ML; Start 10/09/18 at 14:00 Eye Lubricant (Artificial Tears Oph) 1 drop Q6H PRN BOTH EYES DRY EYES Last administered on 11/02/18at 08:38; Admin Dose 1 DROP; Start 10/09/18 at 14:00 Bisacodyl (Dulcolax Supp) 10 mg DAILY PRN [place] CONSTIPATION; Start 10/09/18 at 14:00 Clonidine (Catapres) 0.1 mg DAILY PRN GTB ELEVATED BLOOD PRESSURE; Start 10/09/18 at 14:00 Diltiazem HCl (Cardizem Iv) 5 mg Q4 PRN IV ELEVATED HEART RATE Last administered on 10/18/18 01:09; Admin Dose 5 MG; Start 10/09/18 at 14:00 Diphenhydramine HCl (Benadryl Liquid Cup) 25 mg Q6 PRN GTB ITCHING Last administered on 10/22/18 20:25; Admin Dose 25 MG; Start 10/09/18 at 14:00 Duloxetine HCl (Cymbalta) 30 mg DAILY PO Last administered on 11/02/18 08:34; Admin Dose 30 MG; Start 10/10/18 at 09:00 Gabapentin (Neurontin Liquid) 400 mg Q8 GTB Last administered on 11/02/18 15:15; Admin Dose 400 MG; Start 10/09/18 at 15:30 Hydralazine HCl (Apresoline) 10 mg Q4H PRN IV ELEVATED BLOOD PRESSURE; Start 10/09/18 at 14:00 Hydroxychloroquine Sulfate (Plaquenil) 200 mg BID PO Last administered on 11/02/18 08:36; Admin Dose 200 MG; Start 10/09/18 at 21:00 Diagnostic Test (Pha) (Accu-Chek) 1 ea 02 XX Last administered on 11/02/18 02:38; Admin Dose 1 EA; Start 10/10/18 at 02:00 Insulin Aspart (Novolog Insulin Pen) NOVOLOG *CUSTOM* ALGORITHM Q6H SC Last administered on 11/02/18 15:30; Admin Dose 2 UNIT; Start 10/09/18 at 14:00 Lactobacillus Acidophilus (Florajen3 Capsule) 1 each BID GTB Last administered on 11/02/18 08:35; Admin Dose 1 EACH; Start 10/09/18 at 21:00 Lansoprazole (Prevacid) 30 mg BID@06,18 GTB Last administered on 11/02/18 06:19; Admin Dose 30 MG; Start 10/09/18 at 18:00 Levetiracetam (Keppra Liquid) 500 mg BID GTB Last administered on 11/02/18 08:34; Admin Dose 500 MG; Start 10/09/18 at 21:00 Magnesium Oxide (Mag-Ox 400) 400 mg BID GTB Last administered on 11/02/18 09:20; Admin Dose 400 MG; Start 10/09/18 at 21:00 Metoclopramide HCl (Reglan) 10 mg TID IV Last administered on 11/02/18 13:31; Admin Dose 10 MG; Start 10/09/18 at 21:00 Miconazole Nitrate (Miconazole 2% Cr) 1 applic BID TOP Last administered on 11/02/18at 08:39; Admin Dose 1 APPLIC; Start 10/09/18 at 21:00 Miconazole Nitrate (Miconazole 2% Cr) 1 applic Q12 PRN TOP rash; Start 10/09/18 at 14:00 Ondansetron HCl (Zofran Inj) 4 mg Q4H PRN IV NAUSEA AND/OR VOMITING Last administered on 10/19/18at 16:37; Admin Dose 4 MG; Start 10/09/18 at 14:00 Polyethylene Glycol (Miralax) 17 gm DAILY PRN GTB CONSTIPATION; Start 10/09/18 at 14:00 Senna (Senokot) 2 tab Q8 PRN PO CONSTIPATION; Start 10/09/18 at 14:00 Trimethoprim/ Sulfamethoxazole (Bactrim Susp) 40 ml DAILY GTB Last administered on 11/02/18at 09:20; Admin Dose 40 ML; Start 10/10/18 at 09:00 Zolpidem Tartrate (Ambien) 5 mg HS PRN PO INSOMNIA Last administered on 10/21/18at 02:34; Admin Dose 5 MG; Start 10/09/18 at 14:00 Miscellaneous Information 1 ea NOTE XX ; Start 10/09/18 at 15:00 Glucose (Glutose) 15 gm Q15M PRN PO DECREASED GLUCOSE; Start 10/09/18 at 15:00 Glucose (Glutose) 22.5 gm Q15M PRN PO DECREASED GLUCOSE; Start 10/09/18 at 15:00 Dextrose (D50w Syringe) 25 ml Q15M PRN IV DECREASED GLUCOSE; Start 10/09/18 at 15:00 Dextrose (D50w Syringe) 50 ml Q15M PRN IV DECREASED GLUCOSE; Start 10/09/18 at 15:00 Glucagon (Glucagen) 1 mg Q15M PRN IM DECREASED GLUCOSE; Start 10/09/18 at 15:00 Glucose (Glutose) 15 gm Q15M PRN BUCCAL DECREASED GLUCOSE; Start 10/09/18 at 15:00 Sodium Chloride 500 ml @ 500 mls/hr Q1H PRN IV BLOOD PRESSURE SUPPORT Last administered on 10/31/18at 03:35; Admin Dose 500 MLS/HR; Start 10/09/18 at 19:30 Albuterol (Ventolin Hfa) 4 puff Q6H RESP THERAPY INH Last administered on 11/02/18 07:31; Admin Dose 4 PUFF; Start 10/10/18 at 02:00 Ipratropium [place] (Atrovent Hfa) 4 puff Q6H RESP THERAPY INH Last administered on 11/02/18 13:48; Admin Dose 4 PUFF; Start 10/10/18 at 02:00 Lorazepam (Ativan) 1 mg Q4H PRN GTB AGITATION/ANXIETY Last administered on 11/01/18 12:08; Admin Dose 1 MG; Start 10/14/18 at 13:00 Linagliptin (Tradjenta) 5 mg DAILY PO Last administered on 11/02/18 08:37; Admin Dose 5 MG; Start 10/16/18 at 10:30 Fentanyl (Duragesic 50 Mcg/Hr Patch) 1 patch Q72H TRANSDERM Last administered on 11/01/18 21:13; Admin Dose 1 PATCH; Start 10/17/18 at 20:30 Lorazepam (Ativan) 2 mg Q6H GTB Last administered on 11/02/18 15:19; Admin Dose 2 MG; Start 10/20/18 at 15:00 Quetiapine Fumarate (Seroquel) 100 mg BID GTB Last administered on 11/02/18 08:37; Admin Dose 100 MG; Start 10/21/18 at 21:00 Hydromorphone HCl (Dilaudid) 6 mg Q4H PRN PO MODERATE PAIN LEVEL 7-10 Last administered on 11/02/18 08:36; Admin Dose 6 MG; Start 10/21/18 at 22:00 Calcium Carbonate (Ca Carbonate) 1,250 mg QID GTB Last administered on 13:31; Admin Dose 1,250 MG; Start 10/24/18 at 13:00 Calcitriol (Rocaltrol) 1 mcg BID PO Last administered on 11/02/18 08:34; Admin Dose 1 MCG; Start 10/28/18 at 09:00 Metoprolol Tartrate (Lopressor) 5 mg Q4H PRN IV HR>110 Hold SBP<100; Start 10/28/18 at 12:30 Carvedilol (Coreg) 3.125 mg BID PO Last administered on 11/01/18 20:54; Admin Dose 3.125 MG; Start 11/01/18 at 21:00 Phenylephrine HCl 40 mg/Dextrose 250 ml @ 37.5 mls/hr TITRATE IV Last administered on 11/02/18 09:05; Admin Dose 11.25 MLS/HR; Start 11/01/18 at 13:30 IV Flush (NS 10 ml) 10 ml PRN PRN IV IV PROTOCOL; Start 11/01/18 at 16:30 Hydrocortisone (Cortef) 20 mg QAM PEG Last administered on 11/02/18at 08:35; Admin Dose 20 MG; Start 11/02/18 at 09:00 Hydrocortisone (Cortef) 20 mg AC DINNER PEG ; Start 11/02/18 at 17:05 Hydrocortisone (Cortef) 20 mg QHS PEG Last administered on 11/01/18 21:06; Admin Dose 20 MG; Start 11/01/18 at 21:00 Collagenase (Santyl) 1 applic DAILY TOP Last administered on 11/02/18 08:34; Admin Dose 1 APPLIC; Start 11/01/18 at 19:30 Albumin Human 100 ml @ 100 mls/hr Q8H IV Last administered on 11/02/18 09:14; Admin Dose 100 MLS/HR; Start 11/02/18 at 08:30; Stop 11/03/18 at 01:29 Norepinephrine 32 mg/Dextrose 250 ml @ 0.47 mls/hr TITRATE IV Last administered on 11/02/18 12:15; Admin Dose 0.47 MLS/HR; Start 11/02/18 at 11:30 Magnesium Sulfate 3 gm/Dextrose 106 ml @ 35.333 mls/ hr ONCE ONCE IVPB Last administered on 11/02/18at 15:39; Admin Dose 35.333 MLS/HR; Start 11/02/18 at 15:00; Stop 11/02/18 at 17:59 Calcium Gluconate 2 gm/Dextrose 120 ml @ 60 mls/hr ONCE ONCE IVPB Last administered on 11/02/18 15:39; Admin Dose 60 MLS/HR; Start 11/02/18 at 15:00; Stop 11/02/18 at 16:59 CAMELIA VALENTINE MD Nov 02, 2018 16:50
[2018-11-03] VITALS (42 sets, daily range): BP systolic 87–133; BP diastolic 57–92; PULSE 89–121; RESP 15–43
[2018-11-03] MEDS: ALBUMIN HUMAN 25% 100 ML IV SCH (00:09)
[2018-11-03] MEDS: ZOLPIDEM 5 MG TAB PO PRN (01:16)
[2018-11-03] MEDS: ALBUTEROL HFA 8 GM INHALER INH SCH ×4 (01:20→19:37)
[2018-11-03] MEDS: IPRATROPIUM (HFA) 12.9 GM INHALER INH SCH ×4 (01:20→19:38)
[2018-11-03] MEDS: ACCU-CHEK XX SCH (02:00)
[2018-11-03] MEDS: LORAZEPAM 1 MG TAB GTB SCH ×4 (02:22→20:52)
[2018-11-03] MEDS: INSULIN ASPART [NOVOLOG] 3 ML PEN SC SCH ×4 (02:36→20:00)
[2018-11-03] MEDS: HYDROmorphONE 2 MG TAB PO PRN ×2 (04:43→18:40)
[2018-11-03] MEDS: GABAPENTIN (50 MG/ML PO SYG) GTB SCH ×3 (05:51→21:35)
[2018-11-03] MEDS: LANSOPRAZOLE 30 MG CAP GTB SCH ×2 (05:51→18:45)
[2018-11-03] MEDS ORDERED: POTASSIUM CHLORIDE (SR) 20 MEQ TAB PO ONE (06:28)
[2018-11-03] MEDS ORDERED: POTASSIUM CHLORIDE 20 MEQ POWDER FOR ORAL SOLN GTB ONE (08:00)
--- NOTE | 2018-11-03 08:29 | PN ---
DATE: 11/03/2018 SUBJECTIVE: The patient is stable, currently off pressor support. The patient remains critically il l. OBJECTIVE: VITAL SIGNS: Blood pressure is 90/60, respirations 20, pulse 89, temperature 98.0. HEENT: Head is normocephalic. NECK: Supple. HEART: Regular rate. LUNGS: Show diminished breath sounds at the base. ABDOMEN: Soft, nontender to palpation without rebound or guarding. EXTREMITIES: Negative for clubbing, cyanosis, no edema. DERMATOLOGIC: No rashes. MUSCULOSKELETAL: No joint effusion. NEUROLOGIC: No change in exam. MEDICATIONS: The patient's medications have been reviewed. LABORATORY DATA: Shows a sodium 137, potassium 3.3, chloride 95, BUN 16, creatinine 0.30. White cou nt 20.0, hemoglobin 6.8, platelet count is 169. ASSESSMENT AND PLAN: 1. Nonoliguric acute kidney injury with previously normal baseline creatinine. Etiology is secondar y to hemodynamics. Renal function is improved. Continue to monitor, continue supportive care and re maikel dose all medicines. 2. Pulmonary edema. The patient is status post Lasix. The patient's diuretic therapy has been on h old. We will repeat a chest x-ray. 3. Hypertension, shock. Etiology is likely multifactorial secondary to adrenal insufficiency, cough , questionable volume depletion from recent diuretic use. The patient has been weaned off pressor anguiano pport after steroids were adjusted by endocrinology. Currently, blood pressure remains low, we will start the patient on midodrine and continue to monitor. 4. Ventilator-dependent respiratory failure. Vent settings and ABG was reviewed. Continue to monit or. 5. Adrenal insufficiency. Continue medical management per endocrinology. Continue Cortef. 6. Anemia. Continue to monitor hemoglobin and hematocrit levels. 7. Dysphagia. Continue tube feeding. 8. Sepsis, status post shock. Continue current antibiotic regimen. 9. Seizure disorder. Continue medical management. 10. Anxiety disorder. Continue anxiolytics. 11. Hypomagnesemia. Continue to monitor and replete. 12. Mineral bone disorder. The patient is hypocalcemic receiving vitamin D analogs. Continue per e ndocrinology. 13. Hypokalemia, replete with potassium chloride. Dictated By: UNA ROY DO NR/NTS Conf#: [id number] DID#: [id number] CC: NOLA VIDAL MD; CAMELIA VALENTINE MD;*EndCC*
[2018-11-03] MEDS: COLLAGENASE 5 GM (UD JAR) TOP SCH (09:30)
[2018-11-03] MEDS: LEVETIRACETAM (100 MG/ML) 5ML CUP GTB SCH ×2 (09:30→20:51)
[2018-11-03] MEDS: TRIMETHOPRIM/SULFAMETHOX (PO SYG) GTB SCH (09:30)
[2018-11-03] MEDS: LINAGLIPTIN 5 MG TABLET PO SCH (09:30)
[2018-11-03] MEDS: METOCLOPRAMIDE 10 MG INJ IV SCH ×3 (09:30→20:52)
[2018-11-03] MEDS: CA CARBONATE (250 MG/ML) 5ML CUP GTB SCH ×4 (09:30→20:51)
[2018-11-03] MEDS: CALCITRIOL 0.5 MCG CAPSULE PO SCH ×2 (09:31→20:51)
[2018-11-03] MEDS: QUETIAPINE 100 MG TAB GTB SCH ×2 (09:31→20:52)
[2018-11-03] MEDS: L ACIDOPHIL/B LACTIS/B LONGUM CAPSULE GTB SCH ×2 (09:31→20:51)
[2018-11-03] MEDS: MIDODRINE 5 MG TAB GTB SCH ×3 (09:31→18:55)
[2018-11-03] MEDS: HYDROCORTISONE 5 MG TAB PEG SCH ×2 (09:32→18:45)
[2018-11-03] MEDS: HYDROXYCHLOROQUINE 200 MG TAB PO SCH ×2 (09:32→20:52)
[2018-11-03] MEDS: DULOXETINE 30 MG CAP DR PO SCH (09:32)
[2018-11-03] MEDS: MAGNESIUM OXIDE 400 MG TAB GTB SCH ×2 (09:32→20:52)
[2018-11-03] MEDS: MICONAZOLE 2% 30 GM CR TOP SCH ×2 (09:33→20:53)
[2018-11-03] MEDS: BALSAM PERU/CASTOR OIL 60 GM TUBE TOP SCH ×2 (09:33→20:53)
[2018-11-03] MEDS: ARTIFICIAL TEARS 15 ML OPH BOTH EYES PRN (09:33)
--- NOTE | 2018-11-03 09:48 | CONS ---
Assessment/Plan Assessment/Plan Assessment/Plan (Daily) Ventilator setting; AC of 20, tidal volume 400, PEEP of 8, 80% FiO2. Assessment recommendations; 1. Patient admitted with hypoxemic respiratory failure with history of VD RF due to severe ARDS. FiO2 unable to be weaned down because of severe persistent hypoxemia. 2. History of incomplete quadriplegia. 3. History of hypertension. 4. Stable seizure disorder. 5. History of HSV esophagitis. 6. Status post G-tube and tracheostomy. 7. Underlying anxiety disorder. 8. Severe anemia. 9. Mild thrombocytopenia. 10. Patient maintained on long-term Bactrim prophylactic dosing. Continue current supportive care. Transfuse blood. Overall prognosis is very poor. Consultation Date/Type/Reason Admit Date/Time Oct 09, 2018 at 12:16 Initial Consult Date 10/12/18 Type of Consult Pulmonary/critical care Patient's condition is stable. Remains completely awake and alert. Has remained hemodynamically stable. Patient also has been switched over to volume control ventilation from pressure-controlled mode. General exam; middle-aged male, on ventilator via tracheostomy, awake and alert. Watching television. Currently in no distress. Area Requesting Provider: NOLA VIDAL MD Date/Time of Note DATE: 11/03/18 TIME: 09:44 24 HR Interval Summary Free Text/Dictation Patient's condition remains critical. Still requiring high FiO2. Patient however has improved hemodynamically and is off pressor support. General exam; middle-aged male, on ventilator via tracheostomy, currently no distress. Appropriately responsive. Exam/Review of Systems Exam Vitals Vital Signs Date Temp Pulse Resp B/P (MAP) Pulse Ox O2 O2 Flow FiO2 Time Delivery Rate 11/03/18 80 08:00 11/03/18 89 20 90/60 (70) 95 Mechanical 07:00 Ventilator 11/03/18 98.0 05:00 Intake and Output 11/02/18 11/02/18 11/03/18 1515:00 23:00 07:00 IntakeIntake Total 663.75 ml 641.666 ml 200 ml OutputOutput Total 1265 ml 1460 ml 650 ml BalanceBalance -601.25 ml -818.334 ml -450 ml Exam H HEENT exam; supple neck, no JVD. No lymphadenopathy. Midline trachea. No thyromegaly. Patient is edentulous. Tracheostomy in place. Insertion site is clean. No neck masses. Chest exam; diminished breath sounds throughout. S1-S2 audible, no murmurs. Regular rhythm. Abdomen exam; soft, no organomegaly. G-tube in place. Bowel sounds audible. Extremity exam; no peripheral edema. [employer] exam; patient awake and appropriately responsive, able to move both upper extremities to purposeful extent with stable paraplegia. Results Result Diagram: 11/03/18 0419 11/03/18 0419 Results 24hrs Laboratory Tests Test 11/02/18 13:59 11/02/18 15:23 11/02/18 22:12 11/03/18 02:21 Bedside Glucose 159 166 141 155 Test 11/03/18 04:19 White Blood Count 20.8 H Red Blood Count 2.36 L Hemoglobin 6.8 *L Hematocrit 22.9 L Mean Corpuscular 97.0 Volume Mean Corpuscular 28.8 L Hemoglobin Mean Corpuscular 29.7 L Hemoglobin Concent Red Cell 17.9 H Distribution Width Platelet Count 169 Mean Platelet Volume 11.8 H Immature 1.300 H Granulocytes % Neutrophils % 86.7 H Lymphocytes % 2.3 L Monocytes % 4.9 Eosinophils % 4.7 Basophils % 0.1 Nucleated Red Blood 0.0 Cells % Immature 0.260 H Granulocytes # Neutrophils # 18.0 H Lymphocytes # 0.5 L Monocytes # 1.0 H Eosinophils # 1.0 H Basophils # 0.0 Nucleated Red Blood 0.0 Cells # Sodium Level 137 Potassium Level 3.3 L Chloride Level 95 L Carbon Dioxide Level 36 H Anion Gap 6 Blood Urea Nitrogen 16 Creatinine 0.30 L Est Glomerular > 60 Filtrat Rate mL/min Glucose Level 134 # Calcium Level 7.1 L Phosphorus Level 3.5 Magnesium Level 2.4 Medications Medication Current Medications Acetaminophen (Tylenol Liquid) 650 mg Q4H PRN GTB MILD PAIN(1-3)OR ELEVATED TEMP Last administered on 10/16/18at 07:52; Admin Dose 650 MG; Start 10/09/18 at 14:00 Al Hydrox/Mg Hydrox/Simethicone (Mag-Al Plus) 15 ml Q6H PRN PO GASTROINTESTINAL UPSET Last administered on 10/17/18 13:18; Admin Dose 15 ML; Start 10/09/18 at 14:00 Eye Lubricant (Artificial Tears Oph) 1 drop Q6H PRN BOTH EYES DRY EYES Last administered on 11/03/18 09:33; Admin Dose 1 DROP; Start 10/09/18 at 14:00 Bisacodyl (Dulcolax Supp) 10 mg DAILY PRN [place] CONSTIPATION; Start 10/09/18 at 14:00 Clonidine (Catapres) 0.1 mg DAILY PRN GTB ELEVATED BLOOD PRESSURE; Start 10/09/18 at 14:00 Diltiazem HCl (Cardizem Iv) 5 mg Q4 PRN IV ELEVATED HEART RATE Last administered on 10/18/18 01:09; Admin Dose 5 MG; Start 10/09/18 at 14:00 Diphenhydramine HCl (Benadryl Liquid Cup) 25 mg Q6 PRN GTB ITCHING Last a dministered on 10/22/18 20:25; Admin Dose 25 MG; Start 10/09/18 at 14:00 Duloxetine HCl (Cymbalta) 30 mg DAILY PO Last administered on 11/03/18 09:32; Admin Dose 30 MG; Start 10/10/18 at 09:00 Gabapentin (Neurontin Liquid) 400 mg Q8 GTB Last administered on 11/03/18 05:51; Admin Dose 400 MG; Start 10/09/18 at 15:30 Hydralazine HCl (Apresoline) 10 mg Q4H PRN IV ELEVATED BLOOD PRESSURE; Start 10/09/18 at 14:00 Hydroxychloroquine Sulfate (Plaquenil) 200 mg BID PO Last administered on 11/03/18 09:32; Admin Dose 200 MG; Start 10/09/18 at 21:00 Diagnostic Test (Pha) (Accu-Chek) 1 ea 02 XX Last administered on 11/02/18 02:38; Admin Dose 1 EA; Start 10/10/18 at 02:00 Insulin Aspart (Novolog Insulin Pen) NOVOLOG *CUSTOM* ALGORITHM Q6H SC Last administered on 11/03/18 02:36; Admin Dose 1 UNIT; Start 10/09/18 at 14:00 Lactobacillus Acidophilus (Florajen3 Capsule) 1 each BID GTB Last administered on 11/03/18 09:31; Admin Dose 1 EACH; Start 10/09/18 at 21:00 Lansoprazole (Prevacid) 30 mg BID@06,18 GTB Last administered on 11/03/18 05:51; Admin Dose 30 MG; Start 10/09/18 at 18:00 Levetiracetam (Keppra Liquid) 500 mg BID GTB Last administered on 11/03/18 09:30; Admin Dose 500 MG; Start 10/09/18 at 21:00 Magnesium Oxide (Mag-Ox 400) 400 mg BID GTB Last administered on 11/03/18 09:32; Admin Dose 400 MG; Start 10/09/18 at 21:00 Metoclopramide HCl (Reglan) 10 mg TID IV Last administered on 11/03/18 09:30; Admin Dose 10 MG; Start 10/09/18 at 21:00 Miconazole Nitrate (Miconazole 2% Cr) 1 applic BID TOP Last administered on 11/03/18 09:33; Admin Dose 1 APPLIC; Start 10/09/18 at 21:00 Miconazole Nitrate (Miconazole 2% Cr) 1 applic Q12 PRN TOP rash; Start 10/09/18 at 14:00 Ondansetron HCl (Zofran Inj) 4 mg Q4H PRN IV NAUSEA AND/OR VOMITING Last administered on 10/19/18at 16:37; Admin Dose 4 MG; Start 10/09/18 at 14:00 Polyethylene Glycol (Miralax) 17 gm DAILY PRN GTB CONSTIPATION; Start 10/09/18 at 14:00 Senna (Senokot) 2 tab Q8 PRN PO CONSTIPATION; Start 10/09/18 at 14:00 Trimethoprim/ Sulfamethoxazole (Bactrim Susp) 40 ml DAILY GTB Last administered on 11/03/18 09:30; Admin Dose 40 ML; Start 10/10/18 at 09:00 Zolpidem Tartrate (Ambien) 5 mg HS PRN PO INSOMNIA Last administered on 11/03/18 01:16; Admin Dose 5 MG; Start 10/09/18 at 14:00 Miscellaneous Information 1 ea NOTE XX ; Start 10/09/18 at 15:00 Glucose (Glutose) 15 gm Q15M PRN PO DECREASED GLUCOSE; Start 10/09/18 at 15:00 Glucose (Glutose) 22.5 gm Q15M PRN PO DECREASED GLUCOSE; Start 10/09/18 at 15:00 Dextrose (D50w Syringe) 25 ml Q15M PRN IV DECREASED GLUCOSE; Start 10/09/18 at 15:00 Dextrose (D50w Syringe) 50 ml Q15M PRN IV DECREASED GLUCOSE; Start 10/09/18 at 15:00 Glucagon (Glucagen) 1 mg Q15M PRN IM DECREASED GLUCOSE; Start 10/09/18 at 15:00 Glucose (Glutose) 15 gm Q15M PRN BUCCAL DECREASED GLUCOSE; Start 10/09/18 at 15:00 Sodium Chloride 500 ml @ 500 mls/hr Q1H PRN IV BLOOD PRESSURE SUPPORT Last administered on 10/31/18 03:35; Admin Dose 500 MLS/HR; Start 10/09/18 at 19:30 Albuterol (Ventolin Hfa) 4 puff Q6H RESP THERAPY INH Last administered on 11/03/18 07:39; Admin Dose 4 PUFF; Start 10/10/18 at 02:00 Ipratropium [place] (Atrovent Hfa) 4 puff Q6H RESP THERAPY INH Last administered on 11/03/18 07:38; Admin Dose 4 PUFF; Start 10/10/18 at 02:00 Lorazepam (Ativan) 1 mg Q4H PRN GTB AGITATION/ANXIETY Last administered on 11/01/18 12:08; Admin Dose 1 MG; Start 10/14/18 at 13:00 Linagliptin (Tradjenta) 5 mg DAILY PO Last administered on 11/03/18 09:30; Admin Dose 5 MG; Start 10/16/18 at 10:30 Fentanyl (Duragesic 50 Mcg/Hr Patch) 1 patch Q72H TRANSDERM Last administered on 11/01/18 21:13; Admin Dose 1 PATCH; Start 10/17/18 at 20:30 Lorazepam (Ativan) 2 mg Q6H GTB Last administered on 11/03/18 02:22; Admin Dose 2 MG; Start 10/20/18 at 15:00 Quetiapine Fumarate (Seroquel) 100 mg BID GTB Last administered on 11/03/18 09:31; Admin Dose 100 MG; Start 10/21/18 at 21:00 Hydromorphone HCl (Dilaudid) 6 mg Q4H PRN PO MODERATE PAIN LEVEL 7-10 Last administered on 11/03/18 04:43; Admin Dose 6 MG; Start 10/21/18 at 22:00 Calcium Carbonate (Ca Carbonate) 1,250 mg QID GTB Last administered on 11/03/18 09:30; Admin Dose 1,250 MG; Start 10/24/18 at 13:00 Calcitriol (Rocaltrol) 1 mcg BID PO Last administered on 11/03/18 09:31; Admin Dose 1 MCG; Start 10/28/18 at 09:00 Metoprolol Tartrate (Lopressor) 5 mg Q4H PRN IV HR>110 Hold SBP<100; Start 10/28/18 at 12:30 Carvedilol (Coreg) 3.125 mg BID PO Last administered on 11/02/18 22:17; Admin Dose 3.125 MG; Start 11/01/18 at 21:00 Phenylephrine HCl 40 mg/Dextrose 250 ml @ 37.5 mls/hr TITRATE IV Last administered on 11/02/18 09:05; Admin Dose 11.25 MLS/HR; Start 11/01/18 at 13:30 IV Flush (NS 10 ml) 10 ml PRN PRN IV IV PROTOCOL; Start 11/01/18 at 16:30 Hydrocortisone (Cortef) 20 mg QAM PEG Last administered on 11/03/18 09:32; Admin Dose 20 MG; Start 11/02/18 at 09:00 Hydrocortisone (Cortef) 20 mg AC DINNER PEG Last administered on 11/02/18 17:33; Admin Dose 20 MG; Start 11/02/18 at 17:05 Hydrocortisone (Cortef) 20 mg QHS PEG Last administered on 11/02/18 22:16; Admin Dose 20 MG; Start 11/01/18 at 21:00 Collagenase (Santyl) 1 applic DAILY TOP Last administered on 11/03/18 09:30; Admin Dose 1 APPLIC; Start 11/01/18 at 19:30 Norepinephrine 32 mg/Dextrose 250 ml @ 0.47 mls/hr TITRATE IV Last administered on 11/02/18 12:15; Admin Dose 0.47 MLS/HR; Start 11/02/18 at 11:30 Midodrine (Proamatine) 5 mg TID@,13,17 GTB Last administered on 11/03/18 09:31; Admin Dose 5 MG; Start 11/03/18 at 09:00 PILAR BERGER Nov 03, 2018 09:48
--- NOTE | 2018-11-03 13:05 | CONS ---
Assessment/Plan Assessment/Plan Hospital Course (Demo Recall) # sepsis, respiratory - recurrent sepsis on 10/08/2018 due to aspiration pneumonia, HCAP, improved - possible aspiration pneumonia, recurrent pneumonia due to citrobacter, improved - acute on chronic hypoxic and hypercarbic respiratory failure - persistent leukocytosis likely due to steroid margination - h/o tracheostomy on 08/26/2018 - h/o "Increased mild left apical pneumothorax" per CXR on 09/19/2018; no pneumothorax mentioned on subsequent CXR - h/o pneumomediastinum - h/o VAT on 08/11/2018 - h/o asthma/COPD exacerbation - h/o acute tracheobronchitis - h/o MAC infection but CT chest did not demonstrate features suggestive of this per chart review - On this admission AFB smear x3 have been negative (10/21/18 0600, 10/21/18 1530, and 10/22/18 0040), pneumocystis jiroveci 10/18/18 not detected. Coccioides screen negative. TB Quant Gold neg. - h/o HCAP due to citrobacter, based on resp culture on 09/13/2018 - h/o aspergillus growing out of resp culture per (pulm note by Dr. Lopez) on 07/25/2018 - h/o elevated 1,3 Hype-D-nzutwj level = 232 on 08/06/2018 - h/o MSSA septicemia # GI - diarrhea, C diff on 10/09/2018 was negative - h/o HSV esophagitis, took acyclovir x21 days from 08/26/2018 - h/o EGD, esophageal biopsy showed esophageal squamous mucosa showing acute inflammation, granulation tissue, and ulceration consistent with ulcerative esophagitis, rare multinucleated cells with morphology suggestive of vial cytopathic changes, No cardiac mucosa, intestinal metaplasia, dysplasia, or malignancy defined - GERD - PUD # renal/ - Hypokalemia, recurrent - CKD 2 - BPH # cardiac - tachycardia, persistent - ACD - HTN - HLD # endo - T2DM - Hgb A1c 7.2% - secondary adrenal insufficiency; steroid dependent - Hypoparathyroidism - Hypercalcemia - Pamidronate was ordered # neuro - toxic metabolic encephalopathy - Cervical myopathy - Severe cervical spinal cord stenosis with cord compression from C3-C5, s/p laminectomy in ~03/2018 - Chronic pain syndrome - Functional quadriplegia - Seizure d/o # other chronic conditions - RA with chronic steroid dependence - Immunocompromised status - Fibromyalgia - DDD - H/o multiple rib fracture - Pt completed: meropenem (09/25/2018-10/02/2018), vancomycin (09/25/18-09/28/18), pip/tazo (10/09/2018-10/15/2018) Recommendations: - Pending: AFB culture x3 (AFB smear x3 have resulted negative) particular to r/o mycobacterium avium intracellulaire - Continue Bactrim for pneumocystis PPX - Continue to monitor off other systemic antibiotic Consultation Date/Type/Reason Admit Date/Time Oct 09, 2018 at 12:16 Initial Consult Date 10/12/18 Requesting Provider: NOLA VIDAL MD Date/Time of Note DATE: 11/03/18 TIME: 13:04 24 HR Interval Summary Free Text/Dictation d/w nurse Sarah Exam/Review of Systems Exam Vitals Vital Signs Date Temp Pulse Resp B/P (MAP) Pulse Ox O2 O2 Flow FiO2 Time Delivery Rate 11/03/18 94 20 98 80 09:25 11/03/18 90/60 (70) Mechanical 07:00 Ventilator 11/03/18 98.0 05:00 Intake and Output 11/02/18 11/02/18 11/03/18 1515:00 23:00 07:00 IntakeIntake Total 663.75 ml 641.666 ml 200 ml OutputOutput Total 1265 ml 1460 ml 650 ml BalanceBalance -601.25 ml -818.334 ml -450 ml Constitutional: alert, oriented, well developed Psych: no complaints, nl mood/affect Head: normocephalic, atraumatic Eyes: nl conjunctiva, EOMI, nl lids, nl sclera, PERRL ENMT: nl external ears & nose, nl lips & teeth, nl nasal mucosa & septum Neck: supple, non-tender Respiratory: clear to auscultation, normal air movement Cardiovascular: regular rate and rhythm, nl pulses Gastrointestinal: soft, nl liver, spleen, non-tender Results Result Diagram: 11/03/18 0419 11/03/18 0419 Results 24hrs Laboratory Tests Test 11/02/18 13:59 11/02/18 15:23 11/02/18 22:12 11/03/18 02:21 Bedside Glucose 159 166 141 155 Test 11/03/18 04:19 11/03/18 10:42 White Blood Count 20.8 H Red Blood Count 2.36 L Hemoglobin 6.8 *L Hematocrit 22.9 L Mean Corpuscular 97.0 Volume Mean Corpuscular 28.8 L Hemoglobin Mean Corpuscular 29.7 L Hemoglobin Concent Red Cell 17.9 H Distribution Width Platelet Count 169 Mean Platelet Volume 11.8 H Immature 1.300 H Granulocytes % Neutrophils % 86.7 H Lymphocytes % 2.3 L Monocytes % 4.9 Eosinophils % 4.7 Basophils % 0.1 Nucleated Red Blood 0.0 Cells % Immature 0.260 H Granulocytes # Neutrophils # 18.0 H Lymphocytes # 0.5 L Monocytes # 1.0 H Eosinophils # 1.0 H Basophils # 0.0 Nucleated Red Blood 0.0 Cells # Sodium Level 137 Potassium Level 3.3 L Chloride Level 95 L Carbon Dioxide Level 36 H Anion Gap 6 Blood Urea Nitrogen 16 Creatinine 0.30 L Est Glomerular > 60 Filtrat Rate mL/min Glucose Level 134 # Calcium Level 7.1 L Phosphorus Level 3.5 Magnesium Level 2.4 Bedside Glucose 141 Medications Medication Current Medications Acetaminophen (Tylenol Liquid) 650 mg Q4H PRN GTB MILD PAIN(1-3)OR ELEVATED TEMP Last administered on 10/16/18at 07:52; Admin Dose 650 MG; Start 10/09/18 at 14:00 Al Hydrox/Mg Hydrox/Simethicone (Mag-Al Plus) 15 ml Q6H PRN PO GASTROINTESTINAL UPSET Last administered on 10/17/18at 13:18; Admin Dose 15 ML; Start 10/09/18 at 14:00 Eye Lubricant (Artificial Tears Oph) 1 drop Q6H PRN BOTH EYES DRY EYES Last administered on 11/03/18at 09:33; Admin Dose 1 DROP; Start 10/09/18 at 14:00 Bisacodyl (Dulcolax Supp) 10 mg DAILY PRN [place] CONSTIPATION; Start 10/09/18 at 14:00 Clonidine (Catapres) 0.1 mg DAILY PRN GTB ELEVATED BLOOD PRESSURE; Start 10/09/18 at 14:00 Diltiazem HCl (Cardizem Iv) 5 mg Q4 PRN IV ELEVATED HEART RATE Last administered on 10/18/18 01:09; Admin Dose 5 MG; Start 10/09/18 at 14:00 Diphenhydramine HCl (Benadryl Liquid Cup) 25 mg Q6 PRN GTB ITCHING Last administered on 10/22/18 20:25; Admin Dose 25 MG; Start 10/09/18 at 14:00 Duloxetine HCl (Cymbalta) 30 mg DAILY PO Last administered on 11/03/18 09:32; Admin Dose 30 MG; Start 10/10/18 at 09:00 Gabapentin (Neurontin Liquid) 400 mg Q8 GTB Last administered on 11/03/18 05:5 1; Admin Dose 400 MG; Start 10/09/18 at 15:30 Hydralazine HCl (Apresoline) 10 mg Q4H PRN IV ELEVATED BLOOD PRESSURE; Start 10/09/18 at 14:00 Hydroxychloroquine Sulfate (Plaquenil) 200 mg BID PO Last administered on 11/03/18 09:32; Admin Dose 200 MG; Start 10/09/18 at 21:00 Diagnostic Test (Pha) (Accu-Chek) 1 ea 02 XX Last administered on 11/02/18 02:38; Admin Dose 1 EA; Start 10/10/18 at 02:00 Insulin Aspart (Novolog Insulin Pen) NOVOLOG *CUSTOM* ALGORITHM Q6H SC Last administered on 11/03/18 02:36; Admin Dose 1 UNIT; Start 10/09/18 at 14:00 Lactobacillus Acidophilus (Florajen3 Capsule) 1 each BID GTB Last administered on 11/03/18 09:31; Admin Dose 1 EACH; Start 10/09/18 at 21:00 Lansoprazole (Prevacid) 30 mg BID@,18 GTB Last administered on 11/03/18 05:51; Admin Dose 30 MG; Start 10/09/18 at 18:00 Levetiracetam (Keppra Liquid) 500 mg BID GTB Last administered on 11/03/18 09:30; Admin Dose 500 MG; Start 10/09/18 at 21:00 Magnesium Oxide (Mag-Ox 400) 400 mg BID GTB Last administered on 11/03/18 09:32; Admin Dose 400 MG; Start 10/09/18 at 21:00 Metoclopramide HCl (Reglan) 10 mg TID IV Last administered on 11/03/18at 09:30; Admin Dose 10 MG; Start 10/09/18 at 21:00 Miconazole Nitrate (Miconazole 2% Cr) 1 applic BID TOP Last administered on 11/03/18at 09:33; Admin Dose 1 APPLIC; Start 10/09/18 at 21:00 Miconazole Nitrate (Miconazole 2% Cr) 1 applic Q12 PRN TOP rash; Start 10/09/18 at 14:00 Ondansetron HCl (Zofran Inj) 4 mg Q4H PRN IV NAUSEA AND/OR VOMITING Last administered on 10/19/18at 16:37; Admin Dose 4 MG; Start 10/09/18 at 14:00 Polyethylene Glycol (Miralax) 17 gm DAILY PRN GTB CONSTIPATION; Start 10/09/18 at 14:00 Senna (Senokot) 2 tab Q8 PRN PO CONSTIPATION; Start 10/09/18 at 14:00 Trimethoprim/ Sulfamethoxazole (Bactrim Susp) 40 ml DAILY GTB Last administered on 11/03/18at 09:30; Admin Dose 40 ML; Start 10/10/18 at 09:00 Zolpidem Tartrate (Ambien) 5 mg HS PRN PO INSOMNIA Last administered on 11/03/18at 01:16; Admin Dose 5 MG; Start 10/09/18 at 14:00 Miscellaneous Information 1 ea NOTE XX ; Start 10/09/18 at 15:00 Glucose (Glutose) 15 gm Q15M PRN PO DECREASED GLUCOSE; Start 10/09/18 at 15:00 Glucose (Glutose) 22.5 gm Q15M PRN PO DECREASED GLUCOSE; Start 10/09/18 at 15:00 Dextrose (D50w Syringe) 25 ml Q15M PRN IV DECREASED GLUCOSE; Start 10/09/18 at 15:00 Dextrose (D50w Syringe) 50 ml Q15M PRN IV DECREASED GLUCOSE; Start 10/09/18 at 15:00 Glucagon (Glucagen) 1 mg Q15M PRN IM DECREASED GLUCOSE; Start 10/09/18 at 15:00 Glucose (Glutose) 15 gm Q15M PRN BUCCAL DECREASED GLUCOSE; Start 10/09/18 at 15:00 Sodium Chloride 500 ml @ 500 mls/hr Q1H PRN IV BLOOD PRESSURE SUPPORT Last administered on 10/31/18 03:35; Admin Dose 500 MLS/HR; Start 10/09/18 at 19:30 Albuterol (Ventolin Hfa) 4 puff Q6H RESP THERAPY INH Last administered on 11/03/18 07:39; Admin Dose 4 PUFF; Start 10/10/18 at 02:00 Ipratropium [place] (Atrovent Hfa) 4 puff Q6H RESP THERAPY INH Last administered on 11/03/18 07:38; Admin Dose 4 PUFF; Start 10/10/18 at 02:00 Lorazepam (Ativan) 1 mg Q4H PRN GTB AGITATION/ANXIETY Last administered on 11/01/18 12:08; Admin Dose 1 MG; Start 10/14/18 at 13:00 Linagliptin (Tradjenta) 5 mg DAILY PO Last administered on 11/03/18 09:30; Admin Dose 5 MG; Start 10/16/18 at 10:30 Fentanyl (Duragesic 50 Mcg/Hr Patch) 1 patch Q72H TRANSDERM Last administered on 11/01/18 21:13; Admin Dose 1 PATCH; Start 10/17/18 at 20:30 Lorazepam (Ativan) 2 mg Q6H GTB Last administered on 11/03/18 12:44; Admin Dose 2 MG; Start 10/20/18 at 15:00 Quetiapine Fumarate (Seroquel) 100 mg BID GTB Last administered on 11/03/18 09:31; Admin Dose 100 MG; Start 10/21/18 at 21:00 Hydromorphone HCl (Dilaudid) 6 mg Q4H PRN PO MODERATE PAIN LEVEL 7-10 Last administered on 11/03/18 04:43; Admin Dose 6 MG; Start 10/21/18 at 22:00 Calcium Carbonate (Ca Carbonate) 1,250 mg QID GTB Last administered on 11/03/18 09:30; Admin Dose 1,250 MG; Start 10/24/18 at 13:00 Calcitriol (Rocaltrol) 1 mcg BID PO Last administered on 11/03/18 09:31; Admin Dose 1 MCG; Start 10/28/18 at 09:00 Metoprolol Tartrate (Lopressor) 5 mg Q4H PRN IV HR>110 Hold SBP<100; Start 10/28/18 at 12:30 Carvedilol (Coreg) 3.125 mg BID PO Last administered on 11/02/18 22:17; Admin Dose 3.125 MG; Start 11/01/18 at 21:00 Phenylephrine HCl 40 mg/Dextrose 250 ml @ 37.5 mls/hr TITRATE IV Last administered on 11/02/18 09:05; Admin Dose 11.25 MLS/HR; Start 11/01/18 at 13:30 IV Flush (NS 10 ml) 10 ml PRN PRN IV IV PROTOCOL; Start 11/01/18 at 16:30 Hydrocortisone (Cortef) 20 mg QAM PEG Last administered on 11/03/18 09:32; Admin Dose 20 MG; Start 11/02/18 at 09:00 Hydrocortisone (Cortef) 20 mg AC DINNER PEG Last administered on 11/02/18 17:33; Admin Dose 20 MG; Start 11/02/18 at 17:05 Hydrocortisone (Cortef) 20 mg QHS PEG Last administered on 11/02/18 22:16; Admin Dose 20 MG; Start 11/01/18 at 21:00 Collagenase (Santyl) 1 applic DAILY TOP Last administered on 11/03/18 09:30; Admin Dose 1 APPLIC; Start 11/01/18 at 19:30 Norepinephrine 32 mg/Dextrose 250 ml @ 0.47 mls/hr TITRATE IV Last administered on 11/02/18 12:15; Admin Dose 0.47 MLS/HR; Start 11/02/18 at 11:30 Midodrine (Proamatine) 5 mg TID@,13,17 GTB Last administered on 11/03/18 09: 31; Admin Dose 5 MG; Start 11/03/18 at 09:00 Guaifenesin (Robitussin Liquid Cup) 100 mg Q4H PRN PO COUGH; Start 11/03/18 at 12:00 CAMELIA VALENTINE MD Nov 03, 2018 13:05
--- NOTE | 2018-11-03 13:08 | CONS ---
Assessment/Plan Cardiology Heart Failure Type: Acute on Chronic Heart Failure Type: Systolic Assessment/Plan Hospital Course (Demo Recall) IMPRESSION: 1. Tachycardia- S tach. Ongoimg Likley due to anxiety/infection/cardiomyopathy, multifactorial 2. Hypotension-now off pressors 3. Abnormal electrocardiogram at baseline. 4. Chronic respiratory failure, status post tracheostomy.-weaning vent support 5. Dysphagia, status post G-tube. 6. Quadriplegia. 7. Renal insufficiency, on steroids. 8. Chronic obstructive pulmonary disease. 9. Rheumatoid arthritis. 10. Chronic kidney disease. 11. Diabetes mellitus. 12.Adrenal insufficiency 14. cardiomyopathy-EF 35-40% by echo this admit Recc -ICU -Ongoing Vent support with inability to wean from High percentage FI02 -Continue abx's and f/u cx data -continue steroids -Follow volume status -pnding family conference Consultation Date/Type/Reason Admit Date/Time Oct 09, 2018 at 12:16 Initial Consult Date 10/09/18 Type of Consult Cardiology Reason for Consultation cardiomyopathy Requesting Provider: NOLA VIDAL MD Date/Time of Note DATE: 11/03/18 TIME: 13:04 Exam/Review of Systems Vital Signs Vitals Vital Signs Date Temp Pulse Resp B/P (MAP) Pulse Ox O2 O2 Flow FiO2 Time Delivery Rate 11/03/18 94 20 98 80 09:25 11/03/18 90/60 (70) Mechanical 07:00 Ventilator 11/03/18 98.0 05:00 Intake and Output 11/02/18 11/02/18 11/03/18 1515:00 23:00 07:00 IntakeIntake Total 663.75 ml 641.666 ml 200 ml OutputOutput Total 1265 ml 1460 ml 650 ml BalanceBalance -601.25 ml -818.334 ml -450 ml Exam Exam Review of Systems: CONSTITUTIONAL: No fevers, chills. PULMONARY: No sob CARDIOVASCULAR: No chest pain/palpitations GASTROINTESTINAL: No nausea/vomiting. GENITOURINARY: No hematuria/dysuria. MUSCULOSKELETAL: No myagias/arthalgias. PSYCHIATRIC: The patient denies depression. NEUROLOGIC: No weakness Constitutional: alert Psych: no complaints Head: normocephalic ENMT: mucosa pink and moist Neck: supple, jvd (9 cm water) Respiratory: diminished breath sounds (at bases/B) Cardiovascular: other (tachycardic, regular rhythm) Gastrointestinal: soft, non-tender Musculoskeletal: muscle tone (normal) Extremities: edema (none) Neurological: other (QUAD) Labs Result Diagram: 11/03/1841811/03/18418 Results 24hrs Laboratory Tests Test 11/02/18 13:59 11/02/18 15:23 11/02/18 22:12 11/03/18 02:21 Bedside Glucose 159 166 141 155 Test 11/03/18 04:19 11/03/18 10:42 White Blood Count 20.8 H Red Blood Count 2.36 L Hemoglobin 6.8 *L Hematocrit 22.9 L Mean Corpuscular 97.0 Volume Mean Corpuscular 28.8 L Hemoglobin Mean Corpuscular 29.7 L Hemoglobin Concent Red Cell 17.9 H Distribution Width Platelet Count 169 Mean Platelet Volume 11.8 H Immature 1.300 H Granulocytes % Neutrophils % 86.7 H Lymphocytes % 2.3 L Monocytes % 4.9 Eosinophils % 4.7 Basophils % 0.1 Nucleated Red Blood 0.0 Cells % Immature 0.260 H Granulocytes # Neutrophils # 18.0 H Lymphocytes # 0.5 L Monocytes # 1.0 H Eosinophils # 1.0 H Basophils # 0.0 Nucleated Red Blood 0.0 Cells # Sodium Level 137 Potassium Level 3.3 L Chloride Level 95 L Carbon Dioxide Level 36 H Anion Gap 6 Blood Urea Nitrogen 16 Creatinine 0.30 L Est Glomerular > 60 Filtrat Rate mL/min Glucose Level 134 # Calcium Level 7.1 L Phosphorus Level 3.5 Magnesium Level 2.4 Bedside Glucose 141 Medications Medications Current Medications Acetaminophen (Tylenol Liquid) 650 mg Q4H PRN GTB MILD PAIN(1-3)OR ELEVATED TEMP Last administered on 10/16/18 07:52; Admin Dose 650 MG; Start 10/09/18 at 14:00 Al Hydrox/Mg Hydrox/Simethicone (Mag-Al Plus) 15 ml Q6H PRN PO GASTROINTESTINAL UPSET Last administered on 10/17/18 13:18; Admin Dose 15 ML; Start 10/09/18 at 14:00 Eye Lubricant (Artificial Tears Oph) 1 drop Q6H PRN BOTH EYES DRY EYES Last administered on 11/03/18 09:33; Admin Dose 1 DROP; Start 10/09/18 at 14:00 Bisacodyl (Dulcolax Supp) 10 mg DAILY PRN [place] CONSTIPATION; Start 10/09/18 at 14:00 Clonidine (Catapres) 0.1 mg DAILY PRN GTB ELEVATED BLOOD PRESSURE; Start 10/09/18 at 14:00 Diltiazem HCl (Cardizem Iv) 5 mg Q4 PRN IV ELEVATED HEART RATE Last administered on 10/18/18 01:09; Admin Dose 5 MG; Start 10/09/18 at 14:00 Diphenhydramine HCl (Benadryl Liquid Cup) 25 mg Q6 PRN GTB ITCHING Last administered on 10/22/18 20:25; Admin Dose 25 MG; Start 10/09/18 at 14:00 Duloxetine HCl (Cymbalta) 30 mg DAILY PO Last administered on 11/03/18 09:32; Admin Dose 30 MG; Start 10/10/18 at 09:00 Gabapentin (Neurontin Liquid) 400 mg Q8 GTB Last administered on 11/03/18 05:51; Admin Dose 400 MG; Start 10/09/18 at 15:30 Hydralazine HCl (Apresoline) 10 mg Q4H PRN IV ELEVATED BLOOD PRESSURE; Start 10/09/18 at 14:00 Hydroxychloroquine Sulfate (Plaquenil) 200 mg BID PO Last administered on 11/03/18 09:32; Admin Dose 200 MG; Start 10/09/18 at 21:00 Diagnostic Test (Pha) (Accu-Chek) 1 ea 02 XX Last administered on 11/02/18 02:38; Admin Dose 1 EA; Start 10/10/18 at 02:00 Insulin Aspart (Novolog Insulin Pen) NOVOLOG *CUSTOM* ALGORITHM Q6H SC Last administered on 11/03/18 02:36; Admin Dose 1 UNIT; Start 10/09/18 at 14:00 Lactobacillus Acidophilus (Florajen3 Capsule) 1 each BID GTB Last administered on 11/03/18 09:31; Admin Dose 1 EACH; Start 10/09/18 at 21:00 Lansoprazole (Prevacid) 30 mg BID@06,18 GTB Last administered on 11/03/18 05:51; Admin Dose 30 MG; Start 10/09/18 at 18:00 Levetiracetam (Keppra Liquid) 500 mg BID GTB Last administered on 11/03/18 09:30; Admin Dose 500 MG; Start 10/09/18 at 21:00 Magnesium Oxide (Mag-Ox 400) 400 mg BID GTB Last administered on 11/03/18 09:32; Admin Dose 400 MG; Start 10/09/18 at 21:00 Metoclopramide HCl (Reglan) 10 mg TID IV Last administered on 11/03/18 09:30; Admin Dose 10 MG; Start 10/09/18 at 21:00 Miconazole Nitrate (Miconazole 2% Cr) 1 applic BID TOP Last administered on 11/03/18 09:33; Admin Dose 1 APPLIC; Start 10/09/18 at 21:00 Miconazole Nitrate (Miconazole 2% Cr) 1 applic Q12 PRN TOP rash; Start 10/09/18 at 14:00 Ondansetron HCl (Zofran Inj) 4 mg Q4H PRN IV NAUSEA AND/OR VOMITING Last administered on 10/19/18at 16:37; Admin Dose 4 MG; Start 10/09/18 at 14:00 Polyethylene Glycol (Miralax) 17 gm DAILY PRN GTB CONSTIPATION; Start 10/09/18 at 14:00 Senna (Senokot) 2 tab Q8 PRN PO CONSTIPATION; Start 10/09/18 at 14:00 Trimethoprim/ Sulfamethoxazole (Bactrim Susp) 40 ml DAILY GTB Last administered on 11/03/18at 09:30; Admin Dose 40 ML; Start 10/10/18 at 09:00 Zolpidem Tartrate (Ambien) 5 mg HS PRN PO INSOMNIA Last administered on 11/03/18at 01:16; Admin Dose 5 MG; Start 10/09/18 at 14:00 Miscellaneous Information 1 ea NOTE XX ; Start 10/09/18 at 15:00 Glucose (Glutose) 15 gm Q15M PRN PO DECREASED GLUCOSE; Start 10/09/18 at 15:00 Glucose (Glutose) 22.5 gm Q15M PRN PO DECREASED GLUCOSE; Start 10/09/18 at 15:00 Dextrose (D50w Syringe) 25 ml Q15M PRN IV DECREASED GLUCOSE; Start 10/09/18 at 15:00 Dextrose (D50w Syringe) 50 ml Q15M PRN IV DECREASED GLUCOSE; Start 10/09/18 at 15:00 Glucagon (Glucagen) 1 mg Q15M PRN IM DECREASED GLUCOSE; Start 10/09/18 at 15:00 Glucose (Glutose) 15 gm Q15M PRN BUCCAL DECREASED GLUCOSE; Start 10/09/18 at 15:00 Sodium Chloride 500 ml @ 500 mls/hr Q1H PRN IV BLOOD PRESSURE SUPPORT Last administered on 10/31/18 03:35; Admin Dose 500 MLS/HR; Start 10/09/18 at 19:30 Albuterol (Ventolin Hfa) 4 puff Q6H RESP THERAPY INH Last administered on 11/03/18 07:39; Admin Dose 4 PUFF; Start 10/10/18 at 02:00 Ipratropium [place] (Atrovent Hfa) 4 puff Q6H RESP THERAPY INH Last administered on 11/03/18 07:38; Admin Dose 4 PUFF; Start 10/10/18 at 02:00 Lorazepam (Ativan) 1 mg Q4H PRN GTB AGITATION/ANXIETY Last administered on 11/01/18 12:08; Admin Dose 1 MG; Start 10/14/18 at 13:00 Linagliptin (Tradjenta) 5 mg DAILY PO Last administered on 11/03/18 09:30; Admin Dose 5 MG; Start 10/16/18 at 10:30 Fentanyl (Duragesic 50 Mcg/Hr Patch) 1 patch Q72H TRANSDERM Last administered on 11/01/18 21:13; Admin Dose 1 PATCH; Start 10/17/18 at 20:30 Lorazepam (Ativan) 2 mg Q6H GTB Last administered on 11/03/18 12:44; Admin Dose 2 MG; Start 10/20/18 at 15:00 Quetiapine Fumarate (Seroquel) 100 mg BID GTB Last administered on 11/03/18 09:31; Admin Dose 100 MG; Start 10/21/18 at 21:00 Hydromorphone HCl (Dilaudid) 6 mg Q4H PRN PO MODERATE PAIN LEVEL 7-10 Last administered on 11/03/18 04:43; Admin Dose 6 MG; Start 10/21/18 at 22:00 Calcium Carbonate (Ca Carbonate) 1,250 mg QID GTB Last administered on 11/03/18 09:30; Admin Dose 1,250 MG; Start 10/24/18 at 13:00 Calcitriol (Rocaltrol) 1 mcg BID PO Last administered on 11/03/18 09:31; Admin Dose 1 MCG; Start 10/28/18 at 09:00 Metoprolol Tartrate (Lopressor) 5 mg Q4H PRN IV HR>110 Hold SBP<100; Start 10/28/18 at 12:30 Carvedilol (Coreg) 3.125 mg BID PO Last administered on 11/02/18 22:17; Admin Dose 3.125 MG; Start 11/01/18 at 21:00 Phenylephrine HCl 40 mg/Dextrose 250 ml @ 37.5 mls/hr TITRATE IV Last administered on 11/02/18 09:05; Admin Dose 11.25 MLS/HR; Start 11/01/18 at 13:30 IV Flush (NS 10 ml) 10 ml PRN PRN IV IV PROTOCOL; Start 11/01/18 at 16:30 Hydrocortisone (Cortef) 20 mg QAM PEG Last administered on 11/03/18 09:32; Admin Dose 20 MG; Start 11/02/18 at 09:00 Hydrocortisone (Cortef) 20 mg AC DINNER PEG Last administered on 11/02/18 17:33; Admin Dose 20 MG; Start 11/02/18 at 17:05 Hydrocortisone (Cortef) 20 mg QHS PEG Last administered on 11/02/18 22:16; Admin Dose 20 MG; Start 11/01/18 at 21:00 Collagenase (Santyl) 1 applic DAILY TOP Last administered on 11/03/18 09:30; Admin Dose 1 APPLIC; Start 11/01/18 at 19:30 Norepinephrine 32 mg/Dextrose 250 ml @ 0.47 mls/hr TITRATE IV Last administered on 11/02/18 12:15; Admin Dose 0.47 MLS/HR; Start 11/02/18 at 11:30 Midodrine (Proamatine) 5 mg TID@09,13,17 GTB Last administered on 11/03/18 09:31; Admin Dose 5 MG; Start 11/03/18 at 09:00 Guaifenesin (Robitussin Liquid Cup) 100 mg Q4H PRN PO COUGH; Start 11/03/18 at 12:00 BRISA HAQUE Nov 03, 2018 13:08
--- NOTE | 2018-11-03 13:20 | CONS ---
Assessment/Plan Assessment/Plan Problems: (1) Hypocalcemia Onset Date: ~ 10/14/2018 Status: Acute Comment: Coming back into line now with the usage of supportive therapy. Continue same (2) Adrenal insufficiency due to steroid withdrawal Status: Chronic Comment: Blood pressure is better with use of a more stress dosing style steroids (3) Diabetes mellitus type 2 in nonobese Status: Chronic Comment: Adequate control (4) Rheumatoid arthritis Status: Chronic Comment: Noted. Qualifiers: Rheumatoid arthritis location: unspecified site Rheumatoid factor presence: with rheumatoid factor Qualified Codes: M05.9 - Rheumatoid arthritis with rheumatoid factor, unspecified (5) Acquired hypothyroidism Status: Chronic Comment: On replacement therapy. Consultation Date/Type/Reason Admit Date/Time Oct 09, 2018 at 12:16 Initial Consult Date 10/12/18 Type of Consult Endocrinology Reason for Consultation Hypocalcemia with primary hypoparathyroidism; chronic steroid usage with iatrogenic adrenal insufficiency; rheumatoid arthritis; infectious disease issues Requesting Provider: NOLA VIDAL MD Date/Time of Note DATE: 11/03/18 TIME: 13:19 24 HR Interval Summary Free Text/Dictation Patient remains modestly responsive Exam/Review of Systems Exam Vitals Vital Signs Date Temp Pulse Resp B/P (MAP) Pulse Ox O2 O2 Flow FiO2 Time Delivery Rate 11/03/18 94 20 98 80 09:25 11/03/18 90/60 (70) Mechanical 07:00 Ventilator 11/03/18 98.0 05:00 Intake and Output 11/02/18 11/02/18 11/03/18 1515:00 23:00 07:00 IntakeIntake Total 663.75 ml 641.666 ml 200 ml OutputOutput Total 1265 ml 1460 ml 650 ml BalanceBalance -601.25 ml -818.334 ml -450 ml Exam No change in exam Results Result Diagram: 11/03/18 0419 11/03/18 0419 Results 24hrs Laboratory Tests Test 11/02/18 13:59 11/02/18 15:23 11/02/18 22:12 11/03/18 02:21 Bedside Glucose 159 166 141 155 Test 11/03/18 04:19 11/03/18 10:42 White Blood Count 20.8 H Red Blood Count 2.36 L Hemoglobin 6.8 *L Hematocrit 22.9 L Mean Corpuscular 97.0 Volume Mean Corpuscular 28.8 L Hemoglobin Mean Corpuscular 29.7 L Hemoglobin Concent Red Cell 17.9 H Distribution Width Platelet Count 169 Mean Platelet Volume 11.8 H Immature 1.300 H Granulocytes % Neutrophils % 86.7 H Lymphocytes % 2.3 L Monocytes % 4.9 Eosinophils % 4.7 Basophils % 0.1 Nucleated Red Blood 0.0 Cells % Immature 0.260 H Granulocytes # Neutrophils # 18.0 H Lymphocytes # 0.5 L Monocytes # 1.0 H Eosinophils # 1.0 H Basophils # 0.0 Nucleated Red Blood 0.0 Cells # Sodium Level 137 Potassium Level 3.3 L Chloride Level 95 L Carbon Dioxide Level 36 H Anion Gap 6 Blood Urea Nitrogen 16 Creatinine 0.30 L Est Glomerular > 60 Filtrat Rate mL/min Glucose Level 134 # Calcium Level 7.1 L Phosphorus Level 3.5 Magnesium Level 2.4 Bedside Glucose 141 Medications Medication Current Medications Acetaminophen (Tylenol Liquid) 650 mg Q4H PRN GTB MILD PAIN(1-3)OR ELEVATED TEMP Last administered on 10/16/18 07:52; Admin Dose 650 MG; Start 10/09/18 at 14:00 Al Hydrox/Mg Hydrox/Simethicone (Mag-Al Plus) 15 ml Q6H PRN PO GASTROINTESTINAL UPSET Last administered on 10/17/18 13:18; Admin Dose 15 ML; Start 10/09/18 at 14:00 Eye Lubricant (Artificial Tears Oph) 1 drop Q6H PRN BOTH EYES DRY EYES Last administered on 11/03/18 09:33; Admin Dose 1 DROP; Start 10/09/18 at 14:00 Bisacodyl (Dulcolax Supp) 10 mg DAILY PRN OK CONSTIPATION; Start 10/09/18 at 14:00 Clonidine (Catapres) 0.1 mg DAILY PRN GTB ELEVATED BLOOD PRESSURE; Start 10/09/18 at 14:00 Diltiazem HCl (Cardizem Iv) 5 mg Q4 PRN IV ELEVATED HEART RATE Last administered on 10/18/18 01:09; Admin Dose 5 MG; Start 10/09/18 at 14:00 Diphenhydramine HCl (Benadryl Liquid Cup) 25 mg Q6 PRN GTB ITCHING Last administered on 10/22/18 20:25; Admin Dose 25 MG; Start 10/09/18 at 14:00 Duloxetine HCl (Cymbalta) 30 mg DAILY PO Last administered on 11/03/18 09:32; Admin Dose 30 MG; Start 10/10/18 at 09:00 Gabapentin (Neurontin Liquid) 400 mg Q8 GTB Last administered on 11/03/18 05:51; Admin Dose 400 MG; Start 10/09/18 at 15:30 Hydralazine HCl (Apresoline) 10 mg Q4H PRN IV ELEVATED BLOOD PRESSURE; Start 10/09/18 at 14:00 Hydroxychloroquine Sulfate (Plaquenil) 200 mg BID PO Last administered on 11/03/18 09:32; Admin Dose 200 MG; Start 10/09/18 at 21:00 Diagnostic Test (Pha) (Accu-Chek) 1 ea 02 XX Last administered on 11/02/18 02:38; Admin Dose 1 EA; Start 10/10/18 at 02:00 Insulin Aspart (Novolog Insulin Pen) NOVOLOG *CUSTOM* ALGORITHM Q6H SC Last administered on 11/03/18 02:36; Admin Dose 1 UNIT; Start 10/09/18 at 14:00 Lactobacillus Acidophilus (Florajen3 Capsule) 1 each BID GTB Last administered on 11/03/18 09:31; Admin Dose 1 EACH; Start 10/09/18 at 21:00 Lansoprazole (Prevacid) 30 mg BID@,18 GTB Last administered on 11/03/18 05:51; Admin Dose 30 MG; Start 10/09/18 at 18:00 Levetiracetam (Keppra Liquid) 500 mg BID GTB Last administered on 11/03/18 09:30; Admin Dose 500 MG; Start 10/09/18 at 21:00 Magnesium Oxide (Mag-Ox 400) 400 mg BID GTB Last administered on 11/03/18 09:32; Admin Dose 400 MG; Start 10/09/18 at 21:00 Metoclopramide HCl (Reglan) 10 mg TID IV Last administered on 11/03/18 09:30; Admin Dose 10 MG; Start 10/09/18 at 21:00 Miconazole Nitrate (Miconazole 2% Cr) 1 applic BID TOP Last administered on 11/03/18 09:33; Admin Dose 1 APPLIC; Start 10/09/18 at 21:00 Miconazole Nitrate (Miconazole 2% Cr) 1 applic Q12 PRN TOP rash; Start 10/09/18 at 14:00 Ondansetron HCl (Zofran Inj) 4 mg Q4H PRN IV NAUSEA AND/OR VOMITING Last administered on 10/19/18at 16:37; Admin Dose 4 MG; Start 10/09/18 at 14:00 Polyethylene Glycol (Miralax) 17 gm DAILY PRN GTB CONSTIPATION; Start 10/09/18 at 14:00 Senna (Senokot) 2 tab Q8 PRN PO CONSTIPATION; Start 10/09/18 at 14:00 Trimethoprim/ Sulfamethoxazole (Bactrim Susp) 40 ml DAILY GTB Last administered on 11/03/18at 09:30; Admin Dose 40 ML; Start 10/10/18 at 09:00 Zolpidem Tartrate (Ambien) 5 mg HS PRN PO INSOMNIA Last administered on 11/03/18at 01:16; Admin Dose 5 MG; Start 10/09/18 at 14:00 Miscellaneous Information 1 ea NOTE XX ; Start 10/09/18 at 15:00 Glucose (Glutose) 15 gm Q15M PRN PO DECREASED GLUCOSE; Start 10/09/18 at 15:00 Glucose (Glutose) 22.5 gm Q15M PRN PO DECREASED GLUCOSE; Start 10/09/18 at 15:00 Dextrose (D50w Syringe) 25 ml Q15M PRN IV DECREASED GLUCOSE; Start 10/09/18 at 15:00 Dextrose (D50w Syringe) 50 ml Q15M PRN IV DECREASED GLUCOSE; Start 10/09/18 at 15:00 Glucagon (Glucagen) 1 mg Q15M PRN IM DECREASED GLUCOSE; Start 10/09/18 at 15:00 Glucose (Glutose) 15 gm Q15M PRN BUCCAL DECREASED GLUCOSE; Start 10/09/18 at 15:00 Sodium Chloride 500 ml @ 500 mls/hr Q1H PRN IV BLOOD PRESSURE SUPPORT Last administered on 10/31/18at 03:35; Admin Dose 500 MLS/HR; Start 10/09/18 at 19:30 Albuterol (Ventolin Hfa) 4 puff Q6H RESP THERAPY INH Last administered on 11/03/18at 07:39; Admin Dose 4 PUFF; Start 10/10/18 at 02:00 Ipratropium [place] (Atrovent Hfa) 4 puff Q6H RESP THERAPY INH Last a dministered on 11/03/18 07:38; Admin Dose 4 PUFF; Start 10/10/18 at 02:00 Lorazepam (Ativan) 1 mg Q4H PRN GTB AGITATION/ANXIETY Last administered on 11/01/18 12:08; Admin Dose 1 MG; Start 10/14/18 at 13:00 Linagliptin (Tradjenta) 5 mg DAILY PO Last administered on 11/03/18 09:30; Admin Dose 5 MG; Start 10/16/18 at 10:30 Fentanyl (Duragesic 50 Mcg/Hr Patch) 1 patch Q72H TRANSDERM Last administered on 11/01/18 21:13; Admin Dose 1 PATCH; Start 10/17/18 at 20:30 Lorazepam (Ativan) 2 mg Q6H GTB Last administered on 11/03/18 12:44; Admin Dose 2 MG; Start 10/20/18 at 15:00 Quetiapine Fumarate (Seroquel) 100 mg BID GTB Last administered on 11/03/18 09:31; Admin Dose 100 MG; Start 10/21/18 at 21:00 Hydromorphone HCl (Dilaudid) 6 mg Q4H PRN PO MODERATE PAIN LEVEL 7-10 Last administered on 11/03/18 04:43; Admin Dose 6 MG; Start 10/21/18 at 22:00 Calcium Carbonate (Ca Carbonate) 1,250 mg QID GTB Last administered on 11/03/18 09:30; Admin Dose 1,250 MG; Start 10/24/18 at 13:00 Calcitriol (Rocaltrol) 1 mcg BID PO Last administered on 11/03/18 09:31; Admin Dose 1 MCG; Start 10/28/18 at 09:00 Metoprolol Tartrate (Lopressor) 5 mg Q4H PRN IV HR>110 Hold SBP<100; Start 10/28/18 at 12:30 Carvedilol (Coreg) 3.125 mg BID PO Last administered on 11/02/18 22:17; Admin Dose 3.125 MG; Start 11/01/18 at 21:00 Phenylephrine HCl 40 mg/Dextrose 250 ml @ 37.5 mls/hr TITRATE IV Last administered on 11/02/18 09:05; Admin Dose 11.25 MLS/HR; Start 11/01/18 at 13:30 IV Flush (NS 10 ml) 10 ml PRN PRN IV IV PROTOCOL; Start 11/01/18 at 16:30 Hydrocortisone (Cortef) 20 mg QAM PEG Last administered on 11/03/18 09:32; Admin Dose 20 MG; Start 11/02/18 at 09:00 Hydrocortisone (Cortef) 20 mg AC DINNER PEG Last administered on 11/02/18 17:33; Admin Dose 20 MG; Start 11/02/18 at 17:05 Hydrocortisone (Cortef) 20 mg QHS PEG Last administered on 11/02/18at 22:16; Admin Dose 20 MG; Start 11/01/18 at 21:00 Collagenase (Santyl) 1 applic DAILY TOP Last administered on 11/03/18 09:30; Admin Dose 1 APPLIC; Start 11/01/18 at 19:30 Norepinephrine 32 mg/Dextrose 250 ml @ 0.47 mls/hr TITRATE IV Last administered on 11/02/18at 12:15; Admin Dose 0.47 MLS/HR; Start 11/02/18 at 11:30 Midodrine (Proamatine) 5 mg TID@,13,17 GTB Last administered on 11/03/18at 09:31; Admin Dose 5 MG; Start 11/03/18 at 09:00 Guaifenesin (Robitussin Liquid Cup) 100 mg Q4H PRN PO COUGH; Start 11/03/18 at 12:00 KEV ISSA MD Nov 03, 2018 13:20
[2018-11-03] MEDS ORDERED: CALCITRIOL 1 MCG INJ IV ONE (15:00)
[2018-11-03] MEDS: GUAIFENESIN 20 MG/ML 5ML CUP PO PRN (15:20)
[2018-11-03] MEDS ORDERED: SOD CHLORIDE 0.9% 250 ML IV* ONE (16:40)
[2018-11-03] MEDS: HYDROCORTISONE 20 MG TAB PEG SCH (22:51)
[2018-11-04] VITALS (36 sets, daily range): BP systolic 96–154; BP diastolic 68–103; PULSE 101–125; RESP 15–33
[2018-11-04] MEDS: IPRATROPIUM (HFA) 12.9 GM INHALER INH SCH ×4 (01:32→19:41)
[2018-11-04] MEDS: ALBUTEROL HFA 8 GM INHALER INH SCH ×4 (01:32→19:41)
--- NOTE | 2018-11-04 01:46 | PN ---
DATE: 11/03/2018 LOCATION: Intensive care unit. SUBJECTIVE: The patient remains awake and responsive. The patient is on FIO2 of 80%, remains vent d ependent. Denies any chest pain. The patient was complaining of cough and was requesting cough medi cine which has been started. The patient's blood pressure has remained stable with midodrine and nor epinephrine. PHYSICAL EXAMINATION: GENERAL: The patient is awake, alert, remains quadriplegic. VITAL SIGNS: Temperature 97.7, pulse 113, respirations 24, blood pressure 107/77, O2 saturation 98% on FIO2 of 80%. HEENT: No eye discharge or redness. Nose and ears normal. NECK: No mass. CHEST: Diminished air entry at bases. CARDIOVASCULAR: S1, S2 normal. Sinus tachycardia. ABDOMEN: Soft and nontender. G-tube in place. EXTREMITIES: Trace edema. NEUROLOGIC: The patient is awake, alert, quadriplegia. LABORATORY DATA: WBC 20.8, hemoglobin 6.8, platelet 169. Sodium 137, potassium 3.7, BUN 16. IMPRESSION: 1. Respiratory failure. Continue vent support and breathing treatment. 2. Septic shock. Continue Bactrim for pneumocystis prophylaxis. Continue to monitor off further sy stemic antibiotic. 3. Leukocytosis. The patient is on chronic steroid due to rheumatoid arthritis. 4. Quadriplegia due to cervical myelopathy status post surgery. 5. Chronic pain syndrome, stable. 6. Seizure disorder. Continue Keppra. 7. Hypothyroidism. Continue replacement therapy. 8. Primary hypoparathyroidism. Calcium is 7.1. The patient is being followed by Dr. Magallanes. 9. Hypokalemia. The patient did receive 40 mEq of potassium. The patient also will receive 2 units of PRBC for his anemia. There is no obvious bleeding from any site. The patient remains critical a nd will be kept in ICU. Total critical care time spent 30 minutes. Dictated By: NOLA CHAVEZ/EFREN Conf#: [id number] DID#: [id number]
[2018-11-04] MEDS: INSULIN ASPART [NOVOLOG] 3 ML PEN SC SCH ×4 (02:00→20:00)
[2018-11-04] MEDS: LORAZEPAM 1 MG TAB GTB SCH ×4 (02:24→20:15)
[2018-11-04] MEDS: ACCU-CHEK XX SCH (02:27)
[2018-11-04] MEDS: LANSOPRAZOLE 30 MG CAP GTB SCH ×2 (05:22→17:16)
[2018-11-04] MEDS: GABAPENTIN (50 MG/ML PO SYG) GTB SCH ×3 (05:22→22:54)
[2018-11-04] MEDS: HYDROmorphONE 2 MG TAB PO PRN ×4 (05:23→18:57)
--- NOTE | 2018-11-04 07:25 | CONS ---
Assessment/Plan Assessment/Plan Assessment/Plan (Daily) To begin with family members have decided to change CODE STATUS to DO NOT RESUSCITATE This is a palliative care family consultation that through the help of the social work service was scheduled proximal me 1 week ago giving family members x2 arrive from out of state and out of town. Please refer to my prior note patient's multitude of serious major medical problems per reviewed patient's m edical problems primarily is partial quadriplegia rheumatoid arthritis respiratory failure requiring high FiO2 congestive heart failure renal insufficiency C3 to through C5 compressions is generally resulting in his partial quadriplegia. Patient is completely awake and alert is able to make his own decision participants were entire family 2 daughters and son-in-law. The voice for the family was patient. Background was reviewed history was reviewed in detail with family members a clear understanding of his underlying medical issues and perspectives of his issues and her hopes are that he would not suffered to acceptable quality of life and be out the ventilator if at all possible and resume his partial ambulatory status prior to his devastating injury. Had strong strength with spiritual and mandaen. There were no cultural differences that in interfered with the communication amongst self and family members very pleasant. They have had no past experience of stressors m edical problems the caregivers concerns mostly that their father was suffering but that they would lose him this would devastate the entire family. Goals of care would be to keep as comfortable as possible while supporting one another is estimated prognosis is extremely poor. We discussed options one being continued his level of care to continue with this level of care changed to DO NOT RESUSCIT ATE third comfort measures. Family opted to continue with this level of care but no cardiopulmonary resuscitation. Further it would be my understanding that if and when patient develops another bout of sepsis and respiratory failure require higher amounts of oxygen and pressor support the family will probably elect to change to a comfort measure status. There are no pain and symptom management issues psychological psychological social spiritual or existential issues that needed to be addressed at that time patient CODE STATUS has not changed to DO NOT RESUSCITATE Consultation Date/Type/Reason Admit Date/Time Oct 09, 2018 at 12:16 Date/Time of Note DATE: 11/04/18 TIME: 07:19 Past Medical History Medical History: diabetes, hypertension, renal disease, other (COPD, RA, spinal stenosis, neuropathy, cervical myelopathy with cervical radiculopathy, chronic pain syndrome, tracheobronchitis, fibromyalgia, MAC infection, anemia, chronic steroid therapy) Medications Current Medications Acetaminophen (Tylenol Liquid) 650 mg Q4H PRN GTB MILD PAIN(1-3)OR ELEVATED TEMP Last administered on 10/16/18 07:52; Admin Dose 650 MG; Start 10/09/18 at 14:00 Al Hydrox/Mg Hydrox/Simethicone (Mag-Al Plus) 15 ml Q6H PRN PO GASTROINTESTINAL UPSET Last administered on 10/17/18 13:18; Admin Dose 15 ML; Start 10/09/18 at 14:00 Eye Lubricant (Artificial Tears Oph) 1 drop Q6H PRN BOTH EYES DRY EYES Last administered on 11/03/18 09:33; Admin Dose 1 DROP; Start 10/09/18 at 14:00 Bisacodyl (Dulcolax Supp) 10 mg DAILY PRN CO CONSTIPATION; Start 10/09/18 at 14:00 Clonidine (Catapres) 0.1 mg DAILY PRN GTB ELEVATED BLOOD PRESSURE; Start 10/09/18 at 14:00 Diltiazem HCl (Cardizem Iv) 5 mg Q4 PRN IV ELEVATED HEART RATE Last administered on 10/18/18 01:09; Admin Dose 5 MG; Start 10/09/18 at 14:00 Diphenhydramine HCl (Benadryl Liquid Cup) 25 mg Q6 PRN GTB ITCHING Last a dministered on 10/22/18 20:25; Admin Dose 25 MG; Start 10/09/18 at 14:00 Duloxetine HCl (Cymbalta) 30 mg DAILY PO Last administered on 11/03/18 09:32; Admin Dose 30 MG; Start 10/10/18 at 09:00 Gabapentin (Neurontin Liquid) 400 mg Q8 GTB Last administered on 11/04/18 05:22; Admin Dose 400 MG; Start 10/09/18 at 15:30 Hydralazine HCl (Apresoline) 10 mg Q4H PRN IV ELEVATED BLOOD PRESSURE; Start 10/09/18 at 14:00 Hydroxychloroquine Sulfate (Plaquenil) 200 mg BID PO Last administered on 11/03/18 20:52; Admin Dose 200 MG; Start 10/09/18 at 21:00 Diagnostic Test (Pha) (Accu-Chek) 02 XX Last administered on 11/04/18 02:27; Admin Dose 1 EA; Start 10/10/18 at 02:00 Insulin Aspart (Novolog Insulin Pen) NOVOLOG *CUSTOM* ALGORITHM Q6H SC Last administered on 11/03/18 02:36; Admin Dose 1 UNIT; Start 10/09/18 at 14:00 Lactobacillus Acidophilus (Florajen3 Capsule) 1 each BID GTB Last administered on 11/03/18 20:51; Admin Dose 1 EACH; Start 10/09/18 at 21:00 Lansoprazole (Prevacid) 30 mg BID@06,18 GTB Last administered on 11/04/18 05:22; Admin Dose 30 MG; Start 10/09/18 at 18:00 Levetiracetam (Keppra Liquid) 500 mg BID GTB Last administered on 11/03/18 20:51; Admin Dose 500 MG; Start 10/09/18 at 21:00 Magnesium Oxide (Mag-Ox 400) 400 mg BID GTB Last administered on 11/03/18 20:52; Admin Dose 400 MG; Start 10/09/18 at 21:00 Metoclopramide HCl (Reglan) 10 mg TID IV Last administered on 11/03/18 20:52; Admin Dose 10 MG; Start 10/09/18 at 21:00 Miconazole Nitrate (Miconazole 2% Cr) 1 applic BID TOP Last administered on 11/03/18 20:53; Admin Dose 1 APPLIC; Start 10/09/18 at 21:00 Miconazole Nitrate (Miconazole 2% Cr) 1 applic Q12 PRN TOP rash; Start 10/09/18 at 14:00 Ondansetron HCl (Zofran Inj) 4 mg Q4H PRN IV NAUSEA AND/OR VOMITING Last administered on 10/19/18 16:37; Admin Dose 4 MG; Start 10/09/18 at 14:00 Polyethylene Glycol (Miralax) 17 gm DAILY PRN GTB CONSTIPATION; Start 10/09/18 at 14:00 Senna (Senokot) 2 tab Q8 PRN PO CONSTIPATION; Start 10/09/18 at 14:00 Trimethoprim/ Sulfamethoxazole (Bactrim Susp) 40 ml DAILY GTB Last administered on 11/03/18 09:30; Admin Dose 40 ML; Start 10/10/18 at 09:00 Zolpidem Tartrate (Ambien) 5 mg HS PRN PO INSOMNIA Last administered on 11/03/18 01:16; Admin Dose 5 MG; Start 10/09/18 at 14:00 Miscellaneous Information 1 ea NOTE XX ; Start 10/09/18 at 15:00 Glucose (Glutose) 15 gm Q15M PRN PO DECREASED GLUCOSE; Start 10/09/18 at 15:00 Glucose (Glutose) 22.5 gm Q15M PRN PO DECREASED GLUCOSE; Start 10/09/18 at 15:00 Dextrose (D50w Syringe) 25 ml Q15M PRN IV DECREASED GLUCOSE; Start 10/09/18 at 15:00 Dextrose (D50w Syringe) 50 ml Q15M PRN IV DECREASED GLUCOSE; Start 10/09/18 at 15:00 Glucagon (Glucagen) 1 mg Q15M PRN IM DECREASED GLUCOSE; Start 10/09/18 at 15:00 Glucose (Glutose) 15 gm Q15M PRN BUCCAL DECREASED GLUCOSE; Start 10/09/18 at 15:00 Sodium Chloride 500 ml @ 500 mls/hr Q1H PRN IV BLOOD PRESSURE SUPPORT Last administered on 10/31/18 03:35; Admin Dose 500 MLS/HR; Start 10/09/18 at 19:30 Albuterol (Ventolin Hfa) 4 puff Q6H RESP THERAPY INH Last administered on 11/04/18 01:32; Admin Dose 4 PUFF; Start 10/10/18 at 02:00 Ipratropium [place] (Atrovent Hfa) 4 puff Q6H RESP THERAPY INH Last administered on 11/04/18 01:32; Admin Dose 4 PUFF; Start 10/10/18 at 02:00 Lorazepam (Ativan) 1 mg Q4H PRN GTB AGITATION/ANXIETY Last administered on 11/01/18 12:08; Admin Dose 1 MG; Start 10/14/18 at 13:00 Linagliptin (Tradjenta) 5 mg DAILY PO Last administered on 11/03/18 09:30; Admin Dose 5 MG; Start 10/16/18 at 10:30 Fentanyl (Duragesic 50 Mcg/Hr Patch) 1 patch Q72H TRANSDERM Last administered on 3/19/19at 21:13; Admin Dose 1 PATCH; Start 10/17/18 at 20:30 Lorazepam (Ativan) 2 mg Q6H GTB Last administered on 11/04/18 02:24; Admin Dose 2 MG; Start 10/20/18 at 15:00 Quetiapine Fumarate (Seroquel) 100 mg BID GTB Last administered on 11/03/18 20:52; Admin Dose 100 MG; Start 10/21/18 at 21:00 Hydromorphone HCl (Dilaudid) 6 mg Q4H PRN PO MODERATE PAIN LEVEL 7-10 Last administered on 11/04/18 05:23; Admin Dose 6 MG; Start 10/21/18 at 22:00 Calcium Carbonate (Ca Carbonate) 1,250 mg QID GTB Last administered on 11/03/18 20:51; Admin Dose 1,250 MG; Start 10/24/18 at 13:00 Calcitriol (Rocaltrol) 1 mcg BID PO Last administered on 11/03/18 20:51; Admin Dose 1 MCG; Start 10/28/18 at 09:00 Metoprolol Tartrate (Lopressor) 5 mg Q4H PRN IV HR>110 Hold SBP<100; Start 10/28/18 at 12:30 Carvedilol (Coreg) 3.125 mg BID PO Last administered on 11/02/18 22:17; Admin Dose 3.125 MG; Start 11/01/18 at 21:00 Phenylephrine HCl 40 mg/Dextrose 250 ml @ 37.5 mls/hr TITRATE IV Last administered on 11/02/18 09:05; Admin Dose 11.25 MLS/HR; Start 11/01/18 at 13:30 IV Flush (NS 10 ml) 10 ml PRN PRN IV IV PROTOCOL; Start 11/01/18 at 16:30 Collagenase (Santyl) 1 applic DAILY TOP Last administered on 11/03/18 09:30; Admin Dose 1 APPLIC; Start 11/01/18 at 19:30 Norepinephrine 32 mg/Dextrose 250 ml @ 0.47 mls/hr TITRATE IV Last administered on 11/02/18 12:15; Admin Dose 0.47 MLS/HR; Start 11/02/18 at 11:30 Midodrine (Proamatine) 5 mg TID@09,,17 GTB Last administered on 11/03/18at 18:55; Admin Dose 5 MG; Start 11/03/18 at 09:00 Guaifenesin (Robitussin Liquid Cup) 100 mg Q4H PRN PO COUGH Last administered on 11/03/18at 15:20; Admin Dose 100 MG; Start 11/03/18 at 12:00 Hydrocortisone (Cortef) 20 mg QAM PEG ; Start 11/04/18 at 09:00 Hydrocortisone (Cortef) 20 mg AC DINNER PEG ; Start 11/04/18 at 17:05 Hydrocortisone (Cortef) 20 mg HS PEG Last administered on 11/03/18at 22:51; Admin Dose 20 MG; Start 11/03/18 at 22:45 Allergies: Coded Allergies: No Known Allergy (Unverified , 11/03/18) Past Surgical History Past Surgical Hx: other Social History Alcohol Use: none Smoking Status: Never smoker Drug Use: none Exam/Review of Systems Exam Vitals Vital Signs Date Temp Pulse Resp B/P (MAP) Pulse Ox O2 O2 Flow FiO2 Time Delivery Rate 11/04/18 118 28 146/92 94 Mechanical 06:00 (110) Ventilator Trach Collar 11/04/18 75 05:09 11/04/18 99.2 04:00 Intake and Output 11/03/18 11/03/18 11/04/18 1515:00 23:00 07:00 IntakeIntake Total 540 ml 550 ml 530 ml OutputOutput Total 620 ml 210 ml 880 ml BalanceBalance -80 ml 340 ml -350 ml Results Result Diagram: 11/04/18 0400 11/04/18 0400 Results 24hrs Laboratory Tests Test 11/03/18 10:42 11/03/18 15:31 11/03/18 20:50 11/04/18 02:26 Bedside Glucose 141 120 116 143 Test 11/04/18 04:00 11/04/18 04:59 White Blood Count 12.8 #H Red Blood Count 2.98 #L Hemoglobin 8.8 #L Hematocrit 28.3 #L Mean Corpuscular 95.0 Volume Mean Corpuscular 29.5 Hemoglobin Mean Corpuscular 31.1 L Hemoglobin Concen t Red Cell 17.3 H Distribution Width Platelet Count 156 Mean Platelet 11.9 H Volume Immature 1.300 H Granulocytes % Neutrophils % 84.3 H Lymphocytes % 2.4 L Monocytes % 6.6 Eosinophils % 5.2 Basophils % 0.2 Nucleated Red 0.2 H Blood Cells % Immature 0.160 H Granulocytes # Neutrophils # 10.8 H Lymphocytes # 0.3 L Monocytes # 0.8 Eosinophils # 0.7 H Basophils # 0.0 Nucleated Red 0.0 Blood Cells # Sodium Level 139 Potassium Level 4.4 Chloride Level 95 L Carbon Dioxide 38 H Level Anion Gap 6 Blood Urea 19 Nitrogen Creatinine 0.29 L Est Glomerular > 60 Filtrat Rate mL/min Glucose Level 128 Calcium Level 7.1 L Phosphorus Level 3.6 Magnesium Level 1.9 Lab Scanned BLOOD TRANSFUSIO Report N Medications Medication Current Medications Acetaminophen (Tylenol Liquid) 650 mg Q4H PRN GTB MILD PAIN(1-3)OR ELEVATED TEMP Last administered on 10/16/18 07:52; Admin Dose 650 MG; Start 10/09/18 at 14:00 Al Hydrox/Mg Hydrox/Simethicone (Mag-Al Plus) 15 ml Q6H PRN PO GASTROINTESTINAL UPSET Last administered on 10/17/18 13:18; Admin Dose 15 ML; Start 10/09/18 at 14:00 Eye Lubricant (Artificial Tears Oph) 1 drop Q6H PRN BOTH EYES DRY EYES Last administered on 11/03/18 09:33; Admin Dose 1 DROP; Start 10/09/18 at 14:00 Bisacodyl (Dulcolax Supp) 10 mg DAILY PRN CO CONSTIPATION; Start 10/09/18 at 1 4:00 Clonidine (Catapres) 0.1 mg DAILY PRN GTB ELEVATED BLOOD PRESSURE; Start 10/09/18 at 14:00 Diltiazem HCl (Cardizem Iv) 5 mg Q4 PRN IV ELEVATED HEART RATE Last administered on 10/18/18 01:09; Admin Dose 5 MG; Start 10/09/18 at 14:00 Diphenhydramine HCl (Benadryl Liquid Cup) 25 mg Q6 PRN GTB ITCHING Last administered on 10/22/18 20:25; Admin Dose 25 MG; Start 10/09/18 at 14:00 Duloxetine HCl (Cymbalta) 30 mg DAILY PO Last administered on 11/03/18 09:32; Admin Dose 30 MG; Start 10/10/18 at 09:00 Gabapentin (Neurontin Liquid) 400 mg Q8 GTB Last administered on 11/04/18 05:22; Admin Dose 400 MG; Start 10/09/18 at 15:30 Hydralazine HCl (Apresoline) 10 mg Q4H PRN IV ELEVATED BLOOD PRESSURE; Start 10/09/18 at 14:00 Hydroxychloroquine Sulfate (Plaquenil) 200 mg BID PO Last administered on 11/03/18 20:52; Admin Dose 200 MG; Start 10/09/18 at 21:00 Diagnostic Test (Pha) (Accu-Chek) 1 ea 02 XX Last administered on 11/04/18 02:27; Admin Dose 1 EA; Start 10/10/18 at 02:00 Insulin Aspart (Novolog Insulin Pen) NOVOLOG *CUSTOM* ALGORITHM Q6H SC Last administered on 11/03/18 02:36; Admin Dose 1 UNIT; Start 10/09/18 at 14:00 Lactobacillus Acidophilus (Florajen3 Capsule) 1 each BID GTB Last administered on 11/03/18 20:51; Admin Dose 1 EACH; Start 10/09/18 at 21:00 Lansoprazole (Prevacid) 30 mg BID@06,18 GTB Last administered on 11/04/18 05:22; Admin Dose 30 MG; Start 10/09/18 at 18:00 Levetiracetam (Keppra Liquid) 500 mg BID GTB Last administered on 11/03/18 20:51; Admin Dose 500 MG; Start 10/09/18 at 21:00 Magnesium Oxide (Mag-Ox 400) 400 mg BID GTB Last administered on 11/03/18 20:52; Admin Dose 400 MG; Start 10/09/18 at 21:00 Metoclopramide HCl (Reglan) 10 mg TID IV Last administered on 11/03/18 20:52; Admin Dose 10 MG; Start 10/09/18 at 21:00 Miconazole Nitrate (Miconazole 2% Cr) 1 applic BID TOP Last administered on 11/03/18 20:53; Admin Dose 1 APPLIC; Start 10/09/18 at 21:00 Miconazole Nitrate (Miconazole 2% Cr) 1 applic Q12 PRN TOP rash; Start 10/09/18 at 14:00 Ondansetron HCl (Zofran Inj) 4 mg Q4H PRN IV NAUSEA AND/OR VOMITING Last administered on 10/19/18 16:37; Admin Dose 4 MG; Start 10/09/18 at 14:00 Polyethylene Glycol (Miralax) 17 gm DAILY PRN GTB CONSTIPATION; Start 10/09/18 at 14:00 Senna (Senokot) 2 tab Q8 PRN PO CONSTIPATION; Start 10/09/18 at 14:00 Trimethoprim/ Sulfamethoxazole (Bactrim Susp) 40 ml DAILY GTB Last administered on 11/03/18at 09:30; Admin Dose 40 ML; Start 10/10/18 at 09:00 Zolpidem Tartrate (Ambien) 5 mg HS PRN PO INSOMNIA Last administered on 11/03/18at 01:16; Admin Dose 5 MG; Start 10/09/18 at 14:00 Miscellaneous Information 1 ea NOTE XX ; Start 10/09/18 at 15:00 Glucose (Glutose) 15 gm Q15M PRN PO DECREASED GLUCOSE; Start 10/09/18 at 15:00 Glucose (Glutose) 22.5 gm Q15M PRN PO DECREASED GLUCOSE; Start 10/09/18 at 15:00 Dextrose (D50w Syringe) 25 ml Q15M PRN IV DECREASED GLUCOSE; Start 10/09/18 at 15:00 Dextrose (D50w Syringe) 50 ml Q15M PRN IV DECREASED GLUCOSE; Start 10/09/18 at 15:00 Glucagon (Glucagen) 1 mg Q15M PRN IM DECREASED GLUCOSE; Start 10/09/18 at 15:00 Glucose (Glutose) 15 gm Q15M PRN BUCCAL DECREASED GLUCOSE; Start 10/09/18 at 15:00 Sodium Chloride 500 ml @ 500 mls/hr Q1H PRN IV BLOOD PRESSURE SUPPORT Last administered on 10/31/18at 03:35; Admin Dose 500 MLS/HR; Start 10/09/18 at 19:30 Albuterol (Ventolin Hfa) 4 puff Q6H RESP THERAPY INH Last administered on 11/04/18 01:32; Admin Dose 4 PUFF; Start 10/10/18 at 02:00 Ipratropium [place] (Atrovent Hfa) 4 puff Q6H RESP THERAPY INH Last administered on 11/04/18 01:32; Admin Dose 4 PUFF; Start 10/10/18 at 02:00 Lorazepam (Ativan) 1 mg Q4H PRN GTB AGITATION/ANXIETY Last administered on 11/01/18 12:08; Admin Dose 1 MG; Start 10/14/18 at 13:00 Linagliptin (Tradjenta) 5 mg DAILY PO Last administered on 11/03/18 09:30; Admin Dose 5 MG; Start 10/16/18 at 10:30 Fentanyl (Duragesic 50 Mcg/Hr Patch) 1 patch Q72H TRANSDERM Last administered on 11/01/18 21:13; Admin Dose 1 PATCH; Start 10/17/18 at 20:30 Lorazepam (Ativan) 2 mg Q6H GTB Last administered on 11/04/18 02:24; Admin Dose 2 MG; Start 10/20/18 at 15:00 Quetiapine Fumarate (Seroquel) 100 mg BID GTB Last administered on 11/03/18 20:52; Admin Dose 100 MG; Start 10/21/18 at 21:00 Hydromorphone HCl (Dilaudid) 6 mg Q4H PRN PO MODERATE PAIN LEVEL 7-10 Last administered on 11/04/18 05:23; Admin Dose 6 MG; Start 10/21/18 at 22:00 Calcium Carbonate (Ca Carbonate) 1,250 mg QID GTB Last administered on 11/03/18 20:51; Admin Dose 1,250 MG; Start 10/24/18 at 13:00 Calcitriol (Rocaltrol) 1 mcg BID PO Last administered on 11/03/18 20:51; Admin Dose 1 MCG; Start 10/28/18 at 09:00 Metoprolol Tartrate (Lopressor) 5 mg Q4H PRN IV HR>110 Hold SBP<100; Start 10/28/18 at 12:30 Carvedilol (Coreg) 3.125 mg BID PO Last administered on 11/02/18 22:17; Admin Dose 3.125 MG; Start 11/01/18 at 21:00 Phenylephrine HCl 40 mg/Dextrose 250 ml @ 37.5 mls/hr TITRATE IV Last administered on 11/02/18 09:05; Admin Dose 11.25 MLS/HR; Start 11/01/18 at 13:30 IV Flush (NS 10 ml) 10 ml PRN PRN IV IV PROTOCOL; Start 11/01/18 at 16:30 Collagenase (Santyl) 1 applic DAILY TOP Last administered on 11/03/18at 09:30; Admin Dose 1 APPLIC; Start 11/01/18 at 19:30 Norepinephrine 32 mg/Dextrose 250 ml @ 0.47 mls/hr TITRATE IV Last administered on 11/02/18at 12:15; Admin Dose 0.47 MLS/HR; Start 11/02/18 at 11:30 Midodrine (Proamatine) 5 mg TID@09,13,17 GTB Last administered on 11/03/18at 18:55; Admin Dose 5 MG; Start 11/03/18 at 09:00 Guaifenesin (Robitussin Liquid Cup) 100 mg Q4H PRN PO COUGH Last administered on 11/03/18at 15:20; Admin Dose 100 MG; Start 11/03/18 at 12:00 Hydrocortisone (Cortef) 20 mg QAM PEG ; Start 11/04/18 at 09:00 Hydrocortisone (Cortef) 20 mg AC DINNER PEG ; Start 11/04/18 at 17:05 Hydrocortisone (Cortef) 20 mg HS PEG Last administered on 11/03/18at 22:51; Admin Dose 20 MG; Start 11/03/18 at 22:45 RENATO GAMBOA Nov 04, 2018 07:25
--- NOTE | 2018-11-04 08:10 | PN ---
DATE: 11/04/2018 SUBJECTIVE: The patient's blood pressures have improved. No other events noted. No hemoptysis, hem atemesis, hematochezia. OBJECTIVE: VITAL SIGNS: Blood pressure is 124/90, respirations 33, pulse 114, temperature 97.9. HEENT: Head is normocephalic. NECK: Supple. HEART: Regular rate. LUNGS: Show diminished breath sounds at base. ABDOMEN: Soft, nontender to palpation without rebound or guarding. EXTREMITIES: Negative for clubbing, cyanosis, no edema. DERMATOLOGIC: No rashes. MUSCULOSKELETAL: No joint effusion. NEUROLOGIC: No change in exam. MEDICATIONS: Reviewed. LABORATORY DATA: From 11/04/2018 reviewed. ASSESSMENT AND PLAN: 1. Nonoliguric acute kidney injury with previously normal baseline creatinine. Etiology is secondar y to hemodynamics. Renal function is improved. Continue to monitor. 2. Volume overload. The patient is status post Lasix, continue to monitor, give intermittent diuret ic therapy as needed and as blood pressures can tolerate. 3. Status post shock, etiology is multifactorial secondary to adrenal insufficiency, possible volume depletion. The patient's steroids were adjusted. Blood pressures have improved. Continue current medical management. Continue low-dose midodrine. 4. Ventilator dependent respiratory failure. Vent settings and ABG have been reviewed. Continue to monitor. 5. Renal insufficiency. Continue Cortef per endocrinology. 6. Anemia. Continue to monitor hemoglobin and hematocrit levels. 7. Dysphagia. Continue tube feeding. 8. Sepsis, status post shock. Continue current antibiotic regimen. 9. Seizure disorder. Continue medical management. 10. Anxiety disorder. Continue anxiolytics. 11. Hypomagnesemia. Continue to monitor and replete. 12. Mineral bone disorder, monitor calcium and phosphorus levels. Continue vitamin D analogs per en docrinology. 13. Hyperkalemia. Continue to monitor and replete as needed. Dictated By: UNA ROY DO NR/NTS Conf#: [id number] DID#: [id number] CC: NOLA VIDAL MD;*EndCC*
[2018-11-04] MEDS: HYDROCORTISONE 20 MG TAB PEG SCH ×3 (08:29→20:14)
[2018-11-04] MEDS: MAGNESIUM OXIDE 400 MG TAB GTB SCH ×2 (08:29→20:13)
[2018-11-04] MEDS: LEVETIRACETAM (100 MG/ML) 5ML CUP GTB SCH ×2 (08:29→20:13)
[2018-11-04] MEDS: DULOXETINE 30 MG CAP DR PO SCH (08:29)
[2018-11-04] MEDS: L ACIDOPHIL/B LACTIS/B LONGUM CAPSULE GTB SCH ×2 (08:29→20:13)
[2018-11-04] MEDS: CALCITRIOL 0.5 MCG CAPSULE PO SCH ×2 (08:29→20:51)
[2018-11-04] MEDS: HYDROXYCHLOROQUINE 200 MG TAB PO SCH ×2 (08:29→20:50)
[2018-11-04] MEDS: METOCLOPRAMIDE 10 MG INJ IV SCH ×3 (08:29→20:14)
[2018-11-04] MEDS: COLLAGENASE 5 GM (UD JAR) TOP SCH (08:29)
[2018-11-04] MEDS: LINAGLIPTIN 5 MG TABLET PO SCH (08:30)
[2018-11-04] MEDS: CA CARBONATE (250 MG/ML) 5ML CUP GTB SCH ×4 (08:30→20:13)
[2018-11-04] MEDS: TRIMETHOPRIM/SULFAMETHOX (PO SYG) GTB SCH (08:30)
[2018-11-04] MEDS: QUETIAPINE 100 MG TAB GTB SCH ×2 (08:30→20:15)
[2018-11-04] MEDS: MICONAZOLE 2% 30 GM CR TOP SCH ×2 (08:32→20:16)
[2018-11-04] MEDS: BALSAM PERU/CASTOR OIL 60 GM TUBE TOP SCH ×2 (08:32→20:15)
[2018-11-04] MEDS: MIDODRINE 5 MG TAB GTB SCH ×3 (08:35→16:49)
--- NOTE | 2018-11-04 09:04 | CONS ---
Assessment/Plan Assessment/Plan Assessment/Plan (Daily) Ventilator setting; AC of 20, tidal volume 400, PEEP of 8, 70% FiO2. Assessment and recommendations; 1. Patient with history of VD RF and ARDS admitted for worsening hypoxemia. Status post treatment for presumed pneumonia. 2. End-stage lung with persistent hypoxemic and hypercapnic respiratory failure. Airway pressures are high on current ventilator settings. 3. History of incomplete quadriplegia. 4. History of HSV esophagitis. 5. Stable hypertension. 6. Stable seizure disorder. 7. Peripheral neuropathy. 8. History of depression. 9. Anemia and thrombocytopenia. Continue current supportive care. Switch to pressure control mode of ventilation and obtain ABG. Prognosis is very poor. Patient's family has appropriately signed a DNR form now. Further recommendations once ABG is performed. Consider stopping Bactrim. Consultation Date/Type/Reason Admit Date/Time Oct 09, 2018 at 12:16 Initial Consult Date 10/12/18 Type of Consult Pulmonary/critical care Patient's condition is stable. Remains completely awake and alert. Has remained hemodynamically stable. Patient also has been switched over to volume control ventilation from pressure-controlled mode. General exam; middle-aged male, on ventilator via tracheostomy, awake and alert. Watching television. Currently in no distress. Area Requesting Provider: NOLA VIDAL MD Date/Time of Note DATE: 11/04/18 TIME: 09:00 24 HR Interval Summary Free Text/Dictation Patient's condition remains tenuous at best. Still on high FiO2.. Airway pressures are also high. General exam; middle-aged male, awake and alert. Currently in no distress. On ventilator via tracheostomy. Exam/Review of Systems Exam Vitals Vital Signs Date Temp Pulse Resp B/P (MAP) Pulse Ox O2 O2 Flow FiO2 Time Delivery Rate 11/04/18 70 08:00 11/04/18 109 21 128/80 98 Mechanical 08:00 (96) Ventilator 11/04/18 97.9 07:00 Intake and Output 11/03/18 11/03/18 11/04/18 1515:00 23:00 07:00 IntakeIntake Total 540 ml 550 ml 570 ml OutputOutput Total 620 ml 210 ml 880 ml BalanceBalance -80 ml 340 ml -310 ml Exam H EENT exam; supple neck, no JVD. No lymphadenopathy. Midline trachea. No thyromegaly. Patient is edentulous. Tracheostomy in place. No neck masses. Chest exam; diminished breath sounds throughout. S1-S2 audible, no murmurs. Regular rhythm. Abdomen exam; soft, scaphoid. No organomegaly. G-tube in place. Bowel sounds audible. Extremity exam; no peripheral edema. 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 Able to to move upper e xtremities in a functional way with stable paraplegia. Results Result Diagram: 11/04/18 0400 11/04/18 0400 Results 24hrs Laboratory Tests Test 11/03/18 10:42 11/03/18 15:31 11/03/18 20:50 11/04/18 02:26 Bedside Glucose 141 120 116 143 Test 11/04/18 04:00 11/04/18 04:59 11/04/18 08:28 White Blood Count 12.8 #H Red Blood Count 2.98 #L Hemoglobin 8.8 #L Hematocrit 28.3 #L Mean Corpuscular 95.0 Volume Mean Corpuscular 29.5 Hemoglobin Mean Corpuscular 31.1 L Hemoglobin Concen t Red Cell 17.3 H Distribution Width Platelet Count 156 Mean Platelet 11.9 H Volume Immature 1.300 H Granulocytes % Neutrophils % 84.3 H Lymphocytes % 2.4 L Monocytes % 6.6 Eosinophils % 5.2 Basophils % 0.2 Nucleated Red 0.2 H Blood Cells % Immature 0.160 H Granulocytes # Neutrophils # 10.8 H Lymphocytes # 0.3 L Monocytes # 0.8 Eosinophils # 0.7 H Basophils # 0.0 Nucleated Red 0.0 Blood Cells # Sodium Level 139 Potassium Level 4.4 Chloride Level 95 L Carbon Dioxide 38 H Level Anion Gap 6 Blood Urea 19 Nitrogen Creatinine 0.29 L Est Glomerular > 60 Filtrat Rate mL/min Glucose Level 128 Calcium Level 7.1 L Phosphorus Level 3.6 Magnesium Level 1.9 Lab Scanned BLOOD TRANSFUSIO Report N Bedside Glucose 102 Medications Medication Current Medications Acetaminophen (Tylenol Liquid) 650 mg Q4H PRN GTB MILD PAIN(1-3)OR ELEVATED TEMP Last administered on 10/16/18at 07:52; Admin Dose 650 MG; Start 10/09/18 at 14:00 Al Hydrox/Mg Hydrox/Simethicone (Mag-Al Plus) 15 ml Q6H PRN PO GASTROINTESTINAL UPSET Last administered on 10/17/18 13:18; Admin Dose 15 ML; Start 10/09/18 at 14:00 Eye Lubricant (Artificial Tears Oph) 1 drop Q6H PRN BOTH EYES DRY EYES Last administered on 11/03/18 09:33; Admin Dose 1 DROP; Start 10/09/18 at 14:00 Bisacodyl (Dulcolax Supp) 10 mg DAILY PRN [place] CONSTIPATION; Start 10/09/18 at 14:00 Clonidine (Catapres) 0.1 mg DAILY PRN GTB ELEVATED BLOOD PRESSURE; Start 10/09/18 at 14:00 Diltiazem HCl (Cardizem Iv) 5 mg Q4 PRN IV ELEVATED HEART RATE Last administered on 10/18/18 01:09; Admin Dose 5 MG; Start 10/09/18 at 14:00 Diphenhydramine HCl (Benadryl Liquid Cup) 25 mg Q6 PRN GTB ITCHING Last administered on 10/22/18 20:25; Admin Dose 25 MG; Start 10/09/18 at 14:00 Duloxetine HCl (Cymbalta) 30 mg DAILY PO Last administered on 11/04/18 08:29; Admin Dose 30 MG; Start 10/10/18 at 09:00 Gabapentin (Neurontin Liquid) 400 mg Q8 GTB Last administered on 11/04/18 05:22; Admin Dose 400 MG; Start 10/09/18 at 15:30 Hydralazine HCl (Apresoline) 10 mg Q4H PRN IV ELEVATED BLOOD PRESSURE; Start 10/09/18 at 14:00 Hydroxychloroquine Sulfate (Plaquenil) 200 mg BID PO Last administered on 11/04/18 08:29; Admin Dose 200 MG; Start 10/09/18 at 21:00 Diagnostic Test (Pha) (Accu-Chek) 1 ea 02 XX Last administered on 11/04/18 02:27; Admin Dose 1 EA; Start 10/10/18 at 02:00 Insulin Aspart (Novolog Insulin Pen) NOVOLOG *CUSTOM* ALGORITHM Q6H SC Last administered on 11/03/18 02:36; Admin Dose 1 UNIT; Start 10/09/18 at 14:00 Lactobacillus Acidophilus (Florajen3 Capsule) 1 each BID GTB Last administered on 11/04/18 08:29; Admin Dose 1 EACH; Start 10/09/18 at 21:00 Lansoprazole (Prevacid) 30 mg BID@,18 GTB Last administered on 11/04/18 05:22; Admin Dose 30 MG; Start 10/09/18 at 18:00 Levetiracetam (Keppra Liquid) 500 mg BID GTB Last administered on 11/04/18 08:29; Admin Dose 500 MG; Start 10/09/18 at 21:00 Magnesium Oxide (Mag-Ox 400) 400 mg BID GTB Last administered on 11/04/18 08:29; Admin Dose 400 MG; Start 10/09/18 at 21:00 Metoclopramide HCl (Reglan) 10 mg TID IV Last administered on 11/04/18 08:29; Admin Dose 10 MG; Start 10/09/18 at 21:00 Miconazole Nitrate (Miconazole 2% Cr) 1 applic BID TOP Last administered on 11/04/18 08:32; Admin Dose 1 APPLIC; Start 10/09/18 at 21:00 Miconazole Nitrate (Miconazole 2% Cr) 1 applic Q12 PRN TOP rash; Start 10/09/18 at 14:00 Ondansetron HCl (Zofran Inj) 4 mg Q4H PRN IV NAUSEA AND/OR VOMITING Last administered on 10/19/18 16:37; Admin Dose 4 MG; Start 10/09/18 at 14:00 Polyethylene Glycol (Miralax) 17 gm DAILY PRN GTB CONSTIPATION; Start 10/09/18 at 14:00 Senna (Senokot) 2 tab Q8 PRN PO CONSTIPATION; Start 10/09/18 at 14:00 Trimethoprim/ Sulfamethoxazole (Bactrim Susp) 40 ml DAILY GTB Last administered on 11/04/18 08:30; Admin Dose 40 ML; Start 10/10/18 at 09:00 Zolpidem Tartrate (Ambien) 5 mg HS PRN PO INSOMNIA Last administered on 11/03/18 01:16; Admin Dose 5 MG; Start 10/09/18 at 14:00 Miscellaneous Information 1 ea NOTE XX ; Start 10/09/18 at 15:00 Glucose (Glutose) 15 gm Q15M PRN PO DECREASED GLUCOSE; Start 10/09/18 at 15:00 Glucose (Glutose) 22.5 gm Q15M PRN PO DECREASED GLUCOSE; Start 10/09/18 at 15:00 Dextrose (D50w Syringe) 25 ml Q15M PRN IV DECREASED GLUCOSE; Start 10/09/18 at 15:00 Dextrose (D50w Syringe) 50 ml Q15M PRN IV DECREASED GLUCOSE; Start 10/09/18 at 15:00 Glucagon (Glucagen) 1 mg Q15M PRN IM DECREASED GLUCOSE; Start 10/09/18 at 15:00 Glucose (Glutose) 15 gm Q15M PRN BUCCAL DECREASED GLUCOSE; Start 10/09/18 at 15:00 Sodium Chloride 500 ml @ 500 mls/hr Q1H PRN IV BLOOD PRESSURE SUPPORT Last administered on 10/31/18at 03:35; Admin Dose 500 MLS/HR; Start 10/09/18 at 19:30 Albuterol (Ventolin Hfa) 4 puff Q6H RESP THERAPY INH Last administered on 11/04/18 07:50; Admin Dose 4 PUFF; Start 10/10/18 at 02:00 Ipratropium [place] (Atrovent Hfa) 4 puff Q6H RESP THERAPY INH Last administe red on 11/04/18 07:50; Admin Dose 4 PUFF; Start 10/10/18 at 02:00 Lorazepam (Ativan) 1 mg Q4H PRN GTB AGITATION/ANXIETY Last administered on 11/01/18 12:08; Admin Dose 1 MG; Start 10/14/18 at 13:00 Linagliptin (Tradjenta) 5 mg DAILY PO Last administered on 11/04/18 08:30; Admin Dose 5 MG; Start 10/16/18 at 10:30 Fentanyl (Duragesic 50 Mcg/Hr Patch) 1 patch Q72H TRANSDERM Last administered on 11/01/18 21:13; Admin Dose 1 PATCH; Start 10/17/18 at 20:30 Lorazepam (Ativan) 2 mg Q6H GTB Last administered on 11/04/18 08:30; Admin Dose 2 MG; Start 10/20/18 at 15:00 Quetiapine Fumarate (Seroquel) 100 mg BID GTB Last administered on 11/04/18 08:30; Admin Dose 100 MG; Start 10/21/18 at 21:00 Hydromorphone HCl (Dilaudid) 6 mg Q4H PRN PO MODERATE PAIN LEVEL 7-10 Last administered on 11/04/18 05:23; Admin Dose 6 MG; Start 10/21/18 at 22:00 Calcium Carbonate (Ca Carbonate) 1,250 mg QID GTB Last administered on 11/04/18 08:30; Admin Dose 1,250 MG; Start 10/24/18 at 13:00 Calcitriol (Rocaltrol) 1 mcg BID PO Last administered on 11/04/18 08:29; Admin Dose 1 MCG; Start 10/28/18 at 09:00 Metoprolol Tartrate (Lopressor) 5 mg Q4H PRN IV HR>110 Hold SBP<100; Start 10/28/18 at 12:30 Carvedilol (Coreg) 3.125 mg BID PO Last administered on 11/04/18 08:31; Admin Dose 3.125 MG; Start 11/01/18 at 21:00 Phenylephrine HCl 40 mg/Dextrose 250 ml @ 37.5 mls/hr TITRATE IV Last administered on 11/02/18 09:05; Admin Dose 11.25 MLS/HR; Start 11/01/18 at 13:30 IV Flush (NS 10 ml) 10 ml PRN PRN IV IV PROTOCOL; Start 11/01/18 at 16:30 Collagenase (Santyl) 1 applic DAILY TOP Last administered on 11/04/18 08:29; Admin Dose 1 APPLIC; Start 11/01/18 at 19:30 Norepinephrine 32 mg/Dextrose 250 ml @ 0.47 mls/hr TITRATE IV Last administered on 11/02/18 12:15; Admin Dose 0.47 MLS/HR; Start 11/02/18 at 11:30 Midodrine (Proamatine) 5 mg TID@,13,17 GTB Last administered on 11/04/18 08:35; Admin Dose 5 MG; Start 11/03/18 at 09:00 Guaifenesin (Robitussin Liquid Cup) 100 mg Q4H PRN PO COUGH Last administered on 11/03/18 15:20; Admin Dose 100 MG; Start 11/03/18 at 12:00 Hydrocortisone (Cortef) 20 mg QAM PEG Last administered on 11/04/18at 08:29; Admin Dose 20 MG; Start 11/04/18 at 09:00 Hydrocortisone (Cortef) 20 mg AC DINNER PEG ; Start 11/04/18 at 17:05 Hydrocortisone (Cortef) 20 mg HS PEG Last administered on 11/03/18at 22:51; Admin Dose 20 MG; Start 11/03/18 at 22:45 PILAR BERGER Nov 04, 2018 09:04
--- NOTE | 2018-11-04 10:39 | CONS ---
Assessment/Plan Assessment/Plan Hospital Course (Demo Recall) # sepsis, respiratory - recurrent sepsis on 10/08/2018 due to aspiration pneumonia, HCAP, improved - possible aspiration pneumonia, recurrent pneumonia due to Citrobacter, improved - acute on chronic hypoxic and hypercarbic respiratory failure - persistent leukocytosis likely due to steroid margination - h/o tracheostomy on 08/26/2018 - h/o "Increased mild left apical pneumothorax" per CXR on 09/19/2018; no pneumothorax mentioned on subsequent CXR - h/o pneumomediastinum - h/o VAT on 08/11/2018 - h/o asthma/COPD exacerbation - h/o acute tracheobronchitis - h/o MAC infection but CT chest did not demonstrate features suggestive of this per chart review - On this admission AFB smear x3 have been negative (10/21/18 0600, 10/21/18 1530, and 10/22/18 0040), pneumocystis jiroveci 10/18/18 not detected. Coccioides screen negative. TB Quant Gold neg. - h/o HCAP due to citrobacter, based on resp culture on 09/13/2018 - h/o aspergillus growing out of resp culture per (pulm note by Dr. Lopez) on 07/25/2018 - h/o elevated 1,3 [id number] level = 232 on 08/06/2018 - h/o MSSA septicemia # GI - diarrhea, C diff on 10/09/2018 was negative - h/o HSV esophagitis, took acyclovir x21 days from 08/26/2018 - h/o EGD, esophageal biopsy showed esophageal squamous mucosa showing acute inflammation, granulation tissue, and ulceration consistent with ulcerative esophagitis, rare multinucleated cells with morphology suggestive of vial cytopathic changes, No cardiac mucosa, intestinal metaplasia, dysplasia, or malignancy defined - GERD - PUD # renal/ - Hypokalemia, recurrent - CKD 2 - BPH # cardiac - tachycardia, persistent - Acute on chronic anemia requiring PRBC - HTN - HLD # endo - T2DM - Hgb A1c 7.2% - secondary adrenal insufficiency; steroid dependent - Hypoparathyroidism - Hypercalcemia - Pamidronate was ordered # neuro - toxic metabolic encephalopathy - Cervical myopathy - Severe cervical spinal cord stenosis with cord compression from C3-C5, s/p laminectomy in ~03/2018 - Chronic pain syndrome - Functional quadriplegia - Seizure d/o - Anxiety # other chronic conditions - RA with chronic steroid dependence - Immunocompromised status - Fibromyalgia - DDD - H/o multiple rib fracture - Pt completed: meropenem (09/25/2018-10/02/2018), vancomycin (09/25/18-09/28/18), pip/tazo (10/09/2018-10/15/2018) - DNR status Recommendations: - Pending: AFB culture x3 to r/o mycobacterium avium intracellulaire (AFB smear x3 have resulted negative) - Continue Bactrim for pneumocystis PPX - Continue to monitor off other systemic antibiotic Management d/w RN Mirella and with Dr. Davila Critical care time spent: 40 min. Consultation Date/Type/Reason Admit Date/Time Oct 09, 2018 at 12:16 Initial Consult Date 10/12/18 Type of Consult Infectious Disease Requesting Provider: NOLA VIDAL MD Date/Time of Note DATE: 11/04/18 TIME: 10:38 24 HR Interval Summary Free Text/Dictation Pt is now DNR, had 2 units of PRBC yesterday for Hgb 6.8, FiO2 still at 70%, and diarrhea volume has decreased per d/w MORTAR MAKER. Pt requiring frequent sedation with Dilaudid and Ativan d/t pain, anxiety and agitation per d/w nursing. Subjective hx not possible: pt non-verbal (asleep), pt critical status Exam/Review of Systems Exam Vitals Vital Signs Date Temp Pulse Resp B/P (MAP) Pulse Ox O2 O2 Flow FiO2 Time Delivery Rate 11/04/18 106 21 101/69 95 Mechanical 10:00 (80) Ventilator 11/04/18 70 08:00 11/04/18 97.9 07:00 Intake and Output 11/03/18 11/03/18 11/04/18 1515:00 23:00 07:00 IntakeIntake Total 540 ml 550 ml 570 ml OutputOutput Total 620 ml 210 ml 880 ml BalanceBalance -80 ml 340 ml -310 ml Exam Constitutional: frail, other (asleep) Head: normocephalic, atraumatic Eyes: nl conjunctiva, nl lids, nl sclera ENMT: nl external ears & nose, nl nasal mucosa & septum Neck: other (trach is midline, site c/d/i, on ventilator support with FiO2 70%) Respiratory: normal air movement, diminished breath sounds Cardiovascular: regular rate and rhythm, nl pulses, other (LUE PICC site is c/d/i) Gastrointestinal: soft, other (GT site is c/d/i with TF in progress at 40cc/hr, rectal tube in place with liquid brown stool) Musculoskeletal: nl extremities to inspection Extremities: normal pulses, other (bilateral foot drop) Neurological: other (deferred as pt is asleep) Skin: nl turgor, other (stage II coccygeal ulcer); No rash or lesions Results Result Diagram: 11/04/18 0400 11/04/18 0400 Results 24hrs Laboratory Tests Test 11/03/18 10:42 11/03/18 15:31 11/03/18 20:50 11/04/18 02:26 Bedside Glucose 141 120 116 143 Test 11/04/18 04:00 11/04/18 04:59 11/04/18 08:28 White Blood Count 12.8 #H Red Blood Count 2.98 #L Hemoglobin 8.8 #L Hematocrit 28.3 #L Mean Corpuscular 95.0 Volume Mean Corpuscular 29.5 Hemoglobin Mean Corpuscular 31.1 L Hemoglobin Concen t Red Cell 17.3 H Distribution Width Platelet Count 156 Mean Platelet 11.9 H Volume Immature 1.300 H Granulocytes % Neutrophils % 84.3 H Lymphocytes % 2.4 L Monocytes % 6.6 Eosinophils % 5.2 Basophils % 0.2 Nucleated Red 0.2 H Blood Cells % Immature 0.160 H Granulocytes # Neutrophils # 10.8 H Lymphocytes # 0.3 L Monocytes # 0.8 Eosinophils # 0.7 H Basophils # 0.0 Nucleated Red 0.0 Blood Cells # Sodium Level 139 Potassium Level 4.4 Chloride Level 95 L Carbon Dioxide 38 H Level Anion Gap 6 Blood Urea 19 Nitrogen Creatinine 0.29 L Est Glomerular > 60 Filtrat Rate mL/min Glucose Level 128 Calcium Level 7.1 L Phosphorus Level 3.6 Magnesium Level 1.9 Lab Scanned BLOOD TRANSFUSIO Report N Bedside Glucose 102 Imaging Imaging CXR 10/31/2018: Increased diffuse bilateral interstitial infiltrate/edema. Mildly increased retrocardiac airspace consolidation. Medications Medication Current Medications Acetaminophen (Tylenol Liquid) 650 mg Q4H PRN GTB MILD PAIN(1-3)OR ELEVATED TEMP Last administered on 10/16/18 07:52; Admin Dose 650 MG; Start 10/09/18 at 1 4:00 Al Hydrox/Mg Hydrox/Simethicone (Mag-Al Plus) 15 ml Q6H PRN PO GASTROINTESTINAL UPSET Last administered on 10/17/18 13:18; Admin Dose 15 ML; Start 10/09/18 at 14:00 Eye Lubricant (Artificial Tears Oph) 1 drop Q6H PRN BOTH EYES DRY EYES Last administered on 11/03/18 09:33; Admin Dose 1 DROP; Start 10/09/18 at 14:00 Bisacodyl (Dulcolax Supp) 10 mg DAILY PRN [place] CONSTIPATION; Start 10/09/18 at 14:00 Clonidine (Catapres) 0.1 mg DAILY PRN GTB ELEVATED BLOOD PRESSURE; Start 10/09/18 at 14:00 Diltiazem HCl (Cardizem Iv) 5 mg Q4 PRN IV ELEVATED HEART RATE Last administered on 10/18/18 01:09; Admin Dose 5 MG; Start 10/09/18 at 14:00 Diphenhydramine HCl (Benadryl Liquid Cup) 25 mg Q6 PRN GTB ITCHING Last administered on 10/22/18 20:25; Admin Dose 25 MG; Start 10/09/18 at 14:00 Duloxetine HCl (Cymbalta) 30 mg DAILY PO Last administered on 11/04/18 08:29; Admin Dose 30 MG; Start 10/10/18 at 09:00 Gabapentin (Neurontin Liquid) 400 mg Q8 GTB Last administered on 11/04/18 05:22; Admin Dose 400 MG; Start 10/09/18 at 15:30 Hydralazine HCl (Apresoline) 10 mg Q4H PRN IV ELEVATED BLOOD PRESSURE; Start 10/09/18 at 14:00 Hydroxychloroquine Sulfate (Plaquenil) 200 mg BID PO Last administered on 11/04/18 08:29; Admin Dose 200 MG; Start 10/09/18 at 21:00 Diagnostic Test (Pha) (Accu-Chek) 1 ea 02 XX Last administered on 11/04/18 02:27; Admin Dose 1 EA; Start 10/10/18 at 02:00 Insulin Aspart (Novolog Insulin Pen) NOVOLOG *CUSTOM* ALGORITHM Q6H SC Last administered on 11/03/18 02:36; Admin Dose 1 UNIT; Start 10/09/18 at 14:00 Lactobacillus Acidophilus (Florajen3 Capsule) 1 each BID GTB Last administered on 11/04/18 08:29; Admin Dose 1 EACH; Start 10/09/18 at 21:00 Lansoprazole (Prevacid) 30 mg BID@06,18 GTB Last administered on 11/04/18 05:22; Admin Dose 30 MG; Start 10/09/18 at 18:00 Levetiracetam (Keppra Liquid) 500 mg BID GTB Last administered on 11/04/18 08:29; Admin Dose 500 MG; Start 10/09/18 at 21:00 Magnesium Oxide (Mag-Ox 400) 400 mg BID GTB Last administered on 11/04/18 08:29; Admin Dose 400 MG; Start 10/09/18 at 21:00 Metoclopramide HCl (Reglan) 10 mg TID IV Last administered on 11/04/18 08:29; Admin Dose 10 MG; Start 10/09/18 at 21:00 Miconazole Nitrate (Miconazole 2% Cr) 1 applic BID TOP Last administered on 11/04/18 08:32; Admin Dose 1 APPLIC; Start 10/09/18 at 21:00 Miconazole Nitrate (Miconazole 2% Cr) 1 applic Q12 PRN TOP rash; Start 10/09/18 at 14:00 Ondansetron HCl (Zofran Inj) 4 mg Q4H PRN IV NAUSEA AND/OR VOMITING Last administered on 10/19/18 16:37; Admin Dose 4 MG; Start 10/09/18 at 14:00 Polyethylene Glycol (Miralax) 17 gm DAILY PRN GTB CONSTIPATION; Start 10/09/18 at 14:00 Senna (Senokot) 2 tab Q8 PRN PO CONSTIPATION; Start 10/09/18 at 14:00 Trimethoprim/ Sulfamethoxazole (Bactrim Susp) 40 ml DAILY GTB Last administered on 11/04/18 08:30; Admin Dose 40 ML; Start 10/10/18 at 09:00 Zolpidem Tartrate (Ambien) 5 mg HS PRN PO INSOMNIA Last administered on 11/03/18at 01:16; Admin Dose 5 MG; Start 10/09/18 at 14:00 Miscellaneous Information 1 ea NOTE XX ; Start 10/09/18 at 15:00 Glucose (Glutose) 15 gm Q15M PRN PO DECREASED GLUCOSE; Start 10/09/18 at 15:00 Glucose (Glutose) 22.5 gm Q15M PRN PO DECREASED GLUCOSE; Start 10/09/18 at 15:00 Dextrose (D50w Syringe) 25 ml Q15M PRN IV DECREASED GLUCOSE; Start 10/09/18 at 15:00 Dextrose (D50w Syringe) 50 ml Q15M PRN IV DECREASED GLUCOSE; Start 10/09/18 at 15:00 Glucagon (Glucagen) 1 mg Q15M PRN IM DECREASED GLUCOSE; Start 10/09/18 at 15:00 Glucose (Glutose) 15 gm Q15M PRN BUCCAL DECREASED GLUCOSE; Start 10/09/18 at 15:00 Sodium Chloride 500 ml @ 500 mls/hr Q1H PRN IV BLOOD PRESSURE SUPPORT Last administered on 10/31/18at 03:35; Admin Dose 500 MLS/HR; Start 10/09/18 at 19:30 Albuterol (Ventolin Hfa) 4 puff Q6H RESP THERAPY INH Last administered on 11/04/18at 07:50; Admin Dose 4 PUFF; Start 10/10/18 at 02:00 Ipratropium [place] (Atrovent Hfa) 4 puff Q6H RESP THERAPY INH Last administered on 11/04/18at 07:50; Admin Dose 4 PUFF; Start 10/10/18 at 02:00 Lorazepam (Ativan) 1 mg Q4H PRN GTB AGITATION/ANXIETY Last administered on 11/01/18 12:08; Admin Dose 1 MG; Start 10/14/18 at 13:00 Linagliptin (Tradjenta) 5 mg DAILY PO Last administered on 11/04/18 08:30; Admin Dose 5 MG; Start 10/16/18 at 10:30 Fentanyl (Duragesic 50 Mcg/Hr Patch) 1 patch Q72H TRANSDERM Last administered on 11/01/18 21:13; Admin Dose 1 PATCH; Start 10/17/18 at 20:30 Lorazepam (Ativan) 2 mg Q6H GTB Last administered on 11/04/18 08:30; Admin Dose 2 MG; Start 10/20/18 at 15:00 Quetiapine Fumarate (Seroquel) 100 mg BID GTB Last administered on 11/04/18 08:30; Admin Dose 100 MG; Start 10/21/18 at 21:00 Hydromorphone HCl (Dilaudid) 6 mg Q4H PRN PO MODERATE PAIN LEVEL 7-10 Last administered on 11/04/18 09:46; Admin Dose 6 MG; Start 10/21/18 at 22:00 Calcium Carbonate (Ca Carbonate) 1,250 mg QID GTB Last administered on 11/04/18 08:30; Admin Dose 1,250 MG; Start 10/24/18 at 13:00 Calcitriol (Rocaltrol) 1 mcg BID PO Last administered on 11/04/18 08:29; Admin Dose 1 MCG; Start 10/28/18 at 09:00 Metoprolol Tartrate (Lopressor) 5 mg Q4H PRN IV HR>110 Hold SBP<100; Start 10/28/18 at 12:30 Carvedilol (Coreg) 3.125 mg BID PO Last administered on 11/04/18 08:31; Admin Dose 3.125 MG; Start 11/01/18 at 21:00 Phenylephrine HCl 40 mg/Dextrose 250 ml @ 37.5 mls/hr TITRATE IV Last administered on 11/02/18 09:05; Admin Dose 11.25 MLS/HR; Start 11/01/18 at 13:30 IV Flush (NS 10 ml) 10 ml PRN PRN IV IV PROTOCOL; Start 11/01/18 at 16:30 Collagenase (Santyl) 1 applic DAILY TOP Last administered on 11/04/18 08:29; Admin Dose 1 APPLIC; Start 11/01/18 at 19:30 Norepinephrine 32 mg/Dextrose 250 ml @ 0.47 mls/hr TITRATE IV Last administered on 11/02/18 12:15; Admin Dose 0.47 MLS/HR; Start 11/02/18 at 11:30 Midodrine (Proamatine) 5 mg TID@,,17 GTB Last administered on 11/04/18 08:35; Admin Dose 5 MG; Start 11/03/18 at 09:00 Guaifenesin (Robitussin Liquid Cup) 100 mg Q4H PRN PO COUGH Last administered on 11/03/18at 15:20; Admin Dose 100 MG; Start 11/03/18 at 12:00 Hydrocortisone (Cortef) 20 mg QAM PEG Last administered on 11/04/18at 08:29; Admin Dose 20 MG; Start 11/04/18 at 09:00 Hydrocortisone (Cortef) 20 mg AC DINNER PEG ; Start 11/04/18 at 17:05 Hydrocortisone (Cortef) 20 mg HS PEG Last administered on 11/03/18at 22:51; Admin Dose 20 MG; Start 11/03/18 at 22:45 CATHERINE FISH NP Nov 04, 2018 10:39
--- NOTE | 2018-11-04 13:20 | CONS ---
Assessment/Plan Cardiology Heart Failure Type: Acute on Chronic Heart Failure Type: Systolic Assessment/Plan Hospital Course (Demo Recall) IMPRESSION: 1. Tachycardia- S tach. Ongoimg Likley due to anxiety/infection/cardiomyopathy, multifactorial 2. Hypotension-now off pressors 3. Abnormal electrocardiogram at baseline. 4. Chronic respiratory failure, status post tracheostomy.-weaning vent support 5. Dysphagia, status post G-tube. 6. Quadriplegia. 7. Renal insufficiency, on steroids. 8. Chronic obstructive pulmonary disease. 9. Rheumatoid arthritis. 10. Chronic kidney disease. 11. Diabetes mellitus. 12.Adrenal insufficiency 14. cardiomyopathy-EF 35-40% by echo this admit Recc -ICU -Ongoing Vent support with inability to wean from High percentage FI02 -Continue abx's and f/u cx data -continue steroids -Follow volume status -continue midodrine BP support as necessary -Continue coreg as tolerated only -Now DNR Consultation Date/Type/Reason Admit Date/Time Oct 09, 2018 at 12:16 Initial Consult Date 10/09/18 Type of Consult Cardiology Reason for Consultation cardiomyopathy Requesting Provider: NOLA VIDAL MD Date/Time of Note DATE: 11/04/18 TIME: 13:17 Exam/Review of Systems Vital Signs Vitals Vital Signs Date Temp Pulse Resp B/P (MAP) Pulse Ox O2 O2 Flow FiO2 Time Delivery Rate 11/04/18 103 19 113/76 99 Mechanical 13:00 (88) Ventilator 11/04/18 98.2 12:00 11/04/18 70 08:00 Intake and Output 11/03/18 11/03/18 11/04/18 1515:00 23:00 07:00 IntakeIntake Total 540 ml 550 ml 570 ml OutputOutput Total 620 ml 210 ml 880 ml BalanceBalance -80 ml 340 ml -310 ml Exam Exam Review of Systems: CONSTITUTIONAL: No fevers, chills. PULMONARY: No sob CARDIOVASCULAR: No chest pain/palpitations GASTROINTESTINAL: No nausea/vomiting. GENITOURINARY: No hematuria/dysuria. MUSCULOSKELETAL: No myagias/arthalgias. PSYCHIATRIC: The patient denies depression. NEUROLOGIC: Quadriplegic Constitutional: other (sleeping) Psych: no complaints Head: normocephalic ENMT: other (trached) Neck: supple, jvd Respiratory: diminished breath sounds Cardiovascular: regular rate and rhythm Gastrointestinal: soft, non-tender Musculoskeletal: muscle tone Extremities: edema Neurological: other (No focal deficits) Skin: other (No focl deficits) Labs Result Diagram: 11/04/18 0400 11/04/18 0400 Results 24hrs Laboratory Tests Test 11/03/18 15:31 11/03/18 20:50 11/04/18 02:26 11/04/18 04:00 Bedside Glucose 120 116 143 White Blood 12.8 #H Count Red Blood Count 2.98 #L Hemoglobin 8.8 #L Hematocrit 28.3 #L Mean Corpuscular 95.0 Volume Mean Corpuscular 29.5 Hemoglobin Mean Corpuscular 31.1 L Hemoglobin Dawn nt Red Cell 17.3 H Distribution Width Platelet Count 156 Mean Platelet 11.9 H Volume Immature 1.300 H Granulocytes % Neutrophils % 84.3 H Lymphocytes % 2.4 L Monocytes % 6.6 Eosinophils % 5.2 Basophils % 0.2 Nucleated Red 0.2 H Blood Cells % Immature 0.160 H Granulocytes # Neutrophils # 10.8 H Lymphocytes # 0.3 L Monocytes # 0.8 Eosinophils # 0.7 H Basophils # 0.0 Nucleated Red 0.0 Blood Cells # Sodium Level 139 Potassium Level 4.4 Chloride Level 95 L Carbon Dioxide 38 H Level Anion Gap 6 Blood Urea 19 Nitrogen Creatinine 0.29 L Est Glomerular > 60 Filtrat Rate mL/min Glucose Level 128 Calcium Level 7.1 L Phosphorus Level 3.6 Magnesium Level 1.9 Test 11/04/18 04:59 11/04/18 08:28 11/04/18 08:50 Lab Scanned BLOOD TRANSFUSI Report ON Bedside Glucose 102 Blood Gas Blood arterial Specimen Source Arterial Blood 11/04/2018 11:00 Date Drawn :49 AM Arterial Blood 7.366 pH (Temp corrected) Arterial Blood 68.9 H pCO2 (Temp correct) Arterial Blood 68.1 L pO2 (Temp corrected) Arterial Blood 38.6 H HCO3 Arterial Blood 11.2 H Base Excess Arterial Blood 92.8 L Oxygen Saturatio n [place] Test ACCEPTAB Arterial Blood Left Radial Gas Puncture Site Arterial 0.5 Blood Carboxyhem oglobin Arterial Blood 0.4 Methemoglobin Blood Gas A-a O2 356.9 H Differential Oxyhemoglobin 92.0 L Percent Blood Gas 37.0 Temperature Blood Gas 20.0 Respiration Rate Blood Gas Actual 23 Respiration Rate Blood Gas VENT - PC Modality FiO2 70.0 Blood Gas Low 8.0 PEEP Setting Blood Gas 34.0 Inspiratory Pressure Blood Gas TM Notified Whom Blood Gas 11/04/2018 11:08 Notified Time :43 AM Medications Medications Current Medications Acetaminophen (Tylenol Liquid) 650 mg Q4H PRN GTB MILD PAIN(1-3)OR ELEVATED TEMP Last administered on 10/16/18 07:52; Admin Dose 650 MG; Start 10/09/18 at 14:00 Al Hydrox/Mg Hydrox/Simethicone (Mag-Al Plus) 15 ml Q6H PRN PO GASTROINTESTINAL UPSET Last administered on 10/17/18 13:18; Admin Dose 15 ML; Start 10/09/18 at 14:00 Eye Lubricant (Artificial Tears Oph) 1 drop Q6H PRN BOTH EYES DRY EYES Last administered on 11/03/18 09:33; Admin Dose 1 DROP; Start 10/09/18 at 14:00 Bisacodyl (Dulcolax Supp) 10 mg DAILY PRN [place] CONSTIPATION; Start 10/09/18 at 14:00 Clonidine (Catapres) 0.1 mg DAILY PRN GTB ELEVATED BLOOD PRESSURE; Start 10/09/18 at 14:00 Diltiazem HCl (Cardizem Iv) 5 mg Q4 PRN IV ELEVATED HEART RATE Last administered on 10/18/18 01:09; Admin Dose 5 MG; Start 10/09/18 at 14:00 Diphenhydramine HCl (Benadryl Liquid Cup) 25 mg Q6 PRN GTB ITCHING Last administered on 10/22/18 20:25; Admin Dose 25 MG; Start 10/09/18 at 14:00 Duloxetine HCl (Cymbalta) 30 mg DAILY PO Last administered on 11/04/18 08:29; Admin Dose 30 MG; Start 10/10/18 at 09:00 Gabapentin (Neurontin Liquid) 400 mg Q8 GTB Last administered on 11/04/18 05:22; Admin Dose 400 MG; Start 10/09/18 at 15:30 Hydralazine HCl (Apresoline) 10 mg Q4H PRN IV ELEVATED BLOOD PRESSURE; Start 10/09/18 at 14:00 Hydroxychloroquine Sulfate (Plaquenil) 200 mg BID PO Last administered on 11/04/18 08:29; Admin Dose 200 MG; Start 10/09/18 at 21:00 Diagnostic Test (Pha) (Accu-Chek) 1 ea 02 XX Last administered on 11/04/18 02:27; Admin Dose 1 EA; Start 10/10/18 at 02:00 Insulin Aspart (Novolog Insulin Pen) NOVOLOG *CUSTOM* ALGORITHM Q6H SC Last administered on 11/03/18 02:36; Admin Dose 1 UNIT; Start 10/09/18 at 14:00 Lactobacillus Acidophilus (Florajen3 Capsule) 1 each BID GTB Last administered on 11/04/18 08:29; Admin Dose 1 EACH; Start 10/09/18 at 21:00 Lansoprazole (Prevacid) 30 mg BID@,18 GTB Last administered on 11/04/18 05:22; Admin Dose 30 MG; Start 10/09/18 at 18:00 Levetiracetam (Keppra Liquid) 500 mg BID GTB Last administered on 11/04/18 08:29; Admin Dose 500 MG; Start 10/09/18 at 21:00 Magnesium Oxide (Mag-Ox 400) 400 mg BID GTB Last administered on 11/04/18 08:29; Admin Dose 400 MG; Start 10/09/18 at 21:00 Metoclopramide HCl (Reglan) 10 mg TID IV Last administered on 11/04/18 12:15; Admin Dose 10 MG; Start 10/09/18 at 21:00 Miconazole Nitrate (Miconazole 2% Cr) 1 applic BID TOP Last administered on 11/04/18 08:32; Admin Dose 1 APPLIC; Start 10/09/18 at 21:00 Miconazole Nitrate (Miconazole 2% Cr) 1 applic Q12 PRN TOP rash; Start 10/09/18 at 14:00 Ondansetron HCl (Zofran Inj) 4 mg Q4H PRN IV NAUSEA AND/OR VOMITING Last administered on 10/19/18 16:37; Admin Dose 4 MG; Start 10/09/18 at 14:00 Polyethylene Glycol (Miralax) 17 gm DAILY PRN GTB CONSTIPATION; Start 10/09/18 at 14:00 Senna (Senokot) 2 tab Q8 PRN PO CONSTIPATION; Start 10/09/18 at 14:00 Trimethoprim/ Sulfamethoxazole (Bactrim Susp) 40 ml DAILY GTB Last administered on 11/04/18 08:30; Admin Dose 40 ML; Start 10/10/18 at 09:00 Zolpidem Tartrate (Ambien) 5 mg HS PRN PO INSOMNIA Last administered on 11/03/18 01:16; Admin Dose 5 MG; Start 10/09/18 at 14:00 Miscellaneous Information 1 ea NOTE XX ; Start 10/09/18 at 15:00 Glucose (Glutose) 15 gm Q15M PRN PO DECREASED GLUCOSE; Start 10/09/18 at 15:00 Glucose (Glutose) 22.5 gm Q15M PRN PO DECREASED GLUCOSE; Start 10/09/18 at 15:00 Dextrose (D50w Syringe) 25 ml Q15M PRN IV DECREASED GLUCOSE; Start 10/09/18 at 15:00 Dextrose (D50w Syringe) 50 ml Q15M PRN IV DECREASED GLUCOSE; Start 10/09/18 at 15:00 Glucagon (Glucagen) 1 mg Q15M PRN IM DECREASED GLUCOSE; Start 10/09/18 at 15:00 Glucose (Glutose) 15 gm Q15M PRN BUCCAL DECREASED GLUCOSE; Start 10/09/18 at 15:00 Sodium Chloride 500 ml @ 500 mls/hr Q1H PRN IV BLOOD PRESSURE SUPPORT Last administered on 10/31/18at 03:35; Admin Dose 500 MLS/HR; Start 10/09/18 at 19:30 Albuterol (Ventolin Hfa) 4 puff Q6H RESP THERAPY INH Last administered on 11/04/18at 07:50; Admin Dose 4 PUFF; Start 10/10/18 at 02:00 Ipratropium [place] (Atrovent Hfa) 4 puff Q6H RESP THERAPY INH Last administered on 11/04/18 07:50; Admin Dose 4 PUFF; Start 10/10/18 at 02:00 Lorazepam (Ativan) 1 mg Q4H PRN GTB AGITATION/ANXIETY Last administered on 11/01/18at 12:08; Admin Dose 1 MG; Start 10/14/18 at 13:00 Linagliptin (Tradjenta) 5 mg DAILY PO Last administered on 11/04/18 08:30; Admin Dose 5 MG; Start 10/16/18 at 10:30 Fentanyl (Duragesic 50 Mcg/Hr Patch) 1 patch Q72H TRANSDERM Last administered on 11/01/18 21:13; Admin Dose 1 PATCH; Start 10/17/18 at 20:30 Lorazepam (Ativan) 2 mg Q6H GTB Last administered on 11/04/18 08:30; Admin Dose 2 MG; Start 10/20/18 at 15:00 Quetiapine Fumarate (Seroquel) 100 mg BID GTB Last administered on 11/04/18 08:30; Admin Dose 100 MG; Start 10/21/18 at 21:00 Hydromorphone HCl (Dilaudid) 6 mg Q4H PRN PO MODERATE PAIN LEVEL 7-10 Last administered on 11/04/18 09:46; Admin Dose 6 MG; Start 10/21/18 at 22:00 Calcium Carbonate (Ca Carbonate) 1,250 mg QID GTB Last administered on 11/04/18 12:15; Admin Dose 1,250 MG; Start 10/24/18 at 13:00 Calcitriol (Rocaltrol) 1 mcg BID PO Last administered on 11/04/18 08:29; Admin Dose 1 MCG; Start 10/28/18 at 09:00 Metoprolol Tartrate (Lopressor) 5 mg Q4H PRN IV HR>110 Hold SBP<100; Start 10/28/18 at 12:30 Carvedilol (Coreg) 3.125 mg BID PO Last administered on 11/04/18 08:31; Admin Dose 3.125 MG; Start 11/01/18 at 21:00 Phenylephrine HCl 40 mg/Dextrose 250 ml @ 37.5 mls/hr TITRATE IV Last administered on 11/02/18 09:05; Admin Dose 11.25 MLS/HR; Start 11/01/18 at 13:30 IV Flush (NS 10 ml) 10 ml PRN PRN IV IV PROTOCOL; Start 11/01/18 at 16:30 Collagenase (Santyl) 1 applic DAILY TOP Last administered on 11/04/18 08:29; Admin Dose 1 APPLIC; Start 11/01/18 at 19:30 Norepinephrine 32 mg/Dextrose 250 ml @ 0.47 mls/hr TITRATE IV Last administered on 11/02/18 12:15; Admin Dose 0.47 MLS/HR; Start 11/02/18 at 11:30 Midodrine (Proamatine) 5 mg TID@09,13,17 GTB Last administered on 11/04/18at 12:15; Admin Dose 5 MG; Start 11/03/18 at 09:00 Guaifenesin (Robitussin Liquid Cup) 100 mg Q4H PRN PO COUGH Last administered on 11/03/18at 15:20; Admin Dose 100 MG; Start 11/03/18 at 12:00 Hydrocortisone (Cortef) 20 mg QAM PEG Last administered on 11/04/18at 08:29; Admin Dose 20 MG; Start 11/04/18 at 09:00 Hydrocortisone (Cortef) 20 mg AC DINNER PEG ; Start 11/04/18 at 17:05 Hydrocortisone (Cortef) 20 mg HS PEG Last administered on 11/03/18at 22:51; Admin Dose 20 MG; Start 11/03/18 at 22:45 BRISA HAQUE Nov 04, 2018 13:20
--- NOTE | 2018-11-04 14:08 | CONS ---
Assessment/Plan Assessment/Plan Problems: (1) Hypocalcemia Onset Date: ~ 10/14/2018 Status: Acute Comment: Equally compensated and corrected at this time (2) Hypoparathyroidism Status: Chronic Comment: Noted and on treatment Qualifiers: Hypoparathyroidism type: idiopathic Qualified Codes: E20.0 - Idiopathic hypoparathyroidism (3) Adrenal insufficiency due to steroid withdrawal Status: Chronic Comment: Stable on replacement therapy (4) Diabetes mellitus type 2 in nonobese Status: Chronic Comment: Good glycemic control Consultation Date/Type/Reason Admit Date/Time Oct 09, 2018 at 12:16 Initial Consult Date 10/12/18 Type of Consult Endocrinology Reason for Consultation Hypoparathyroidism with hypocalcemia; chronic steroid usage with iatrogenic adrenal insufficiency; rheumatoid arthritis Requesting Provider: NOLA VIDAL MD Date/Time of Note DATE: 11/04/18 TIME: 14:06 24 HR Interval Summary Free Text/Dictation Patient indicates no new complaints. Limited ability to interact Exam/Review of Systems Exam Vitals Vital Signs Date Temp Pulse Resp B/P (MAP) Pulse Ox O2 O2 Flow FiO2 Time Delivery Rate 11/04/18 103 19 113/76 99 Mechanical 13:00 (88) Ventilator 11/04/18 98.2 12:00 11/04/18 70 11:10 Intake and Output 11/03/18 11/03/18 11/04/18 1515:00 23:00 07:00 IntakeIntake Total 540 ml 550 ml 570 ml OutputOutput Total 620 ml 210 ml 880 ml BalanceBalance -80 ml 340 ml -310 ml Respiratory: clear to auscultation, normal air movement Gastrointestinal: soft, nl liver, spleen, non-tender Results Result Diagram: 11/04/18 0400 11/04/18 0400 Results 24hrs Laboratory Tests Test 11/03/18 15:31 11/03/18 20:50 11/04/18 02:26 11/04/18 04:00 Bedside Glucose 120 116 143 White Blood 12.8 #H Count Red Blood Count 2.98 #L Hemoglobin 8.8 #L Hematocrit 28.3 #L Mean Corpuscular 95.0 Volume Mean Corpuscular 29.5 Hemoglobin Mean Corpuscular 31.1 L Hemoglobin Dawn nt Red Cell 17.3 H Distribution Width Platelet Count 156 Mean Platelet 11.9 H Volume Immature 1.300 H Granulocytes % Neutrophils % 84.3 H Lymphocytes % 2.4 L Monocytes % 6.6 Eosinophils % 5.2 Basophils % 0.2 Nucleated Red 0.2 H Blood Cells % Immature 0.160 H Granulocytes # Neutrophils # 10.8 H Lymphocytes # 0.3 L Monocytes # 0.8 Eosinophils # 0.7 H Basophils # 0.0 Nucleated Red 0.0 Blood Cells # Sodium Level 139 Potassium Level 4.4 Chloride Level 95 L Carbon Dioxide 38 H Level Anion Gap 6 Blood Urea 19 Nitrogen Creatinine 0.29 L Est Glomerular > 60 Filtrat Rate mL/min Glucose Level 128 Calcium Level 7.1 L Phosphorus Level 3.6 Magnesium Level 1.9 Test 11/04/18 04:59 11/04/18 08:28 11/04/18 08:50 Lab Scanned BLOOD TRANSFUSI Report ON Bedside Glucose 102 Blood Gas Blood arterial Specimen Source Arterial Blood 11/04/2018 11:00 Date Drawn :49 AM Arterial Blood 7.366 pH (Temp corrected) Arterial Blood 68.9 H pCO2 (Temp correct) Arterial Blood 68.1 L pO2 (Temp corrected) Arterial Blood 38.6 H HCO3 Arterial Blood 11.2 H Base Excess Arterial Blood 92.8 L Oxygen Saturatio n [place] Test ACCEPTAB Arterial Blood Left Radial Gas Puncture Site Arterial 0.5 Blood Carboxyhem oglobin Arterial Blood 0.4 Methemoglobin Blood Gas A-a O2 356.9 H Differential Oxyhemoglobin 92.0 L Percent Blood Gas 37.0 Temperature Blood Gas 20.0 Respiration Rate Blood Gas Actual 23 Respiration Rate Blood Gas VENT - PC Modality FiO2 70.0 Blood Gas Low 8.0 PEEP Setting Blood Gas 34.0 Inspiratory Pressure Blood Gas TM Notified Whom Blood Gas 11/04/2018 11:08 Notified Time :43 AM Medications Medication Current Medications Acetaminophen (Tylenol Liquid) 650 mg Q4H PRN GTB MILD PAIN(1-3)OR ELEVATED TEMP Last administered on 10/16/18at 07:52; Admin Dose 650 MG; Start 10/09/18 at 14:00 Al Hydrox/Mg Hydrox/Simethicone (Mag-Al Plus) 15 ml Q6H PRN PO GASTROINTESTINAL UPSET Last administered on 10/17/18 13:18; Admin Dose 15 ML; Start 10/09/18 at 14:00 Eye Lubricant (Artificial Tears Oph) 1 drop Q6H PRN BOTH EYES DRY EYES Last administered on 11/03/18 09:33; Admin Dose 1 DROP; Start 10/09/18 at 14:00 Bisacodyl (Dulcolax Supp) 10 mg DAILY PRN ME CONSTIPATION; Start 10/09/18 at 14:00 Clonidine (Catapres) 0.1 mg DAILY PRN GTB ELEVATED BLOOD PRESSURE; Start 10/09/18 at 14:00 Diltiazem HCl (Cardizem Iv) 5 mg Q4 PRN IV ELEVATED HEART RATE Last administered on 10/18/18 01:09; Admin Dose 5 MG; Start 10/09/18 at 14:00 Diphenhydramine HCl (Benadryl Liquid Cup) 25 mg Q6 PRN GTB ITCHING Last administered on 10/22/18 20:25; Admin Dose 25 MG; Start 10/09/18 at 14:00 Duloxetine HCl (Cymbalta) 30 mg DAILY PO Last administered on 11/04/18 08:29; Admin Dose 30 MG; Start 10/10/18 at 09:00 Gabapentin (Neurontin Liquid) 400 mg Q8 GTB Last administered on 11/04/18 05:22; Admin Dose 400 MG; Start 10/09/18 at 15:30 Hydralazine HCl (Apresoline) 10 mg Q4H PRN IV ELEVATED BLOOD PRESSURE; Start 10/09/18 at 14:00 Hydroxychloroquine Sulfate (Plaquenil) 200 mg BID PO Last administered on 11/04/18 08:29; Admin Dose 200 MG; Start 10/09/18 at 21:00 Diagnostic Test (Pha) (Accu-Chek) 1 ea 02 XX Last administered on 11/04/18 02:27; Admin Dose 1 EA; Start 10/10/18 at 02:00 Insulin Aspart (Novolog Insulin Pen) NOVOLOG *CUSTOM* ALGORITHM Q6H SC Last administered on 11/03/18 02:36; Admin Dose 1 UNIT; Start 10/09/18 at 14:00 Lactobacillus Acidophilus (Florajen3 Capsule) 1 each BID GTB Last administered on 11/04/18 08:29; Admin Dose 1 EACH; Start 10/09/18 at 21:00 Lansoprazole (Prevacid) 30 mg BID@06,18 GTB Last administered on 11/04/18 05:22; Admin Dose 30 MG; Start 10/09/18 at 18:00 Levetiracetam (Keppra Liquid) 500 mg BID GTB Last administered on 11/04/18 08:29; Admin Dose 500 MG; Start 10/09/18 at 21:00 Magnesium Oxide (Mag-Ox 400) 400 mg BID GTB Last administered on 11/04/18 08:29; Admin Dose 400 MG; Start 10/09/18 at 21:00 Metoclopramide HCl (Reglan) 10 mg TID IV Last administered on 11/04/18 12:15; Admin Dose 10 MG; Start 10/09/18 at 21:00 Miconazole Nitrate (Miconazole 2% Cr) 1 applic BID TOP Last administered on 11/04/18 08:32; Admin Dose 1 APPLIC; Start 10/09/18 at 21:00 Miconazole Nitrate (Miconazole 2% Cr) 1 applic Q12 PRN TOP rash; Start 10/09/18 at 14:00 Ondansetron HCl (Zofran Inj) 4 mg Q4H PRN IV NAUSEA AND/OR VOMITING Last administered on 10/19/18 16:37; Admin Dose 4 MG; Start 10/09/18 at 14:00 Polyethylene Glycol (Miralax) 17 gm DAILY PRN GTB CONSTIPATION; Start 10/09/18 at 14:00 Senna (Senokot) 2 tab Q8 PRN PO CONSTIPATION; Start 10/09/18 at 14:00 Trimethoprim/ Sulfamethoxazole (Bactrim Susp) 40 ml DAILY GTB Last administered on 11/04/18 08:30; Admin Dose 40 ML; Start 10/10/18 at 09:00 Zolpidem Tartrate (Ambien) 5 mg HS PRN PO INSOMNIA Last administered on 11/03/18 01:16; Admin Dose 5 MG; Start 10/09/18 at 14:00 Miscellaneous Information 1 ea NOTE XX ; Start 10/09/18 at 15:00 Glucose (Glutose) 15 gm Q15M PRN PO DECREASED GLUCOSE; Start 10/09/18 at 15:00 Glucose (Glutose) 22.5 gm Q15M PRN PO DECREASED GLUCOSE; Start 10/09/18 at 15:00 Dextrose (D50w Syringe) 25 ml Q15M PRN IV DECREASED GLUCOSE; Start 10/09/18 at 15:00 Dextrose (D50w Syringe) 50 ml Q15M PRN IV DECREASED GLUCOSE; Start 10/09/18 at 15:00 Glucagon (Glucagen) 1 mg Q15M PRN IM DECREASED GLUCOSE; Start 10/09/18 at 15:00 Glucose (Glutose) 15 gm Q15M PRN BUCCAL DECREASED GLUCOSE; Start 10/09/18 at 15:00 Sodium Chloride 500 ml @ 500 mls/hr Q1H PRN IV BLOOD PRESSURE SUPPORT Last administered on 10/31/18 03:35; Admin Dose 500 MLS/HR; Start 10/09/18 at 19:30 Albuterol (Ventolin Hfa) 4 puff Q6H RESP THERAPY INH Last administered on 11/04/18 13:27; Admin Dose 4 PUFF; Start 10/10/18 at 02:00 Ipratropium [place] (Atrovent Hfa) 4 puff Q6H RESP THERAPY INH Last administered on 11/04/18 13:27; Admin Dose 4 PUFF; Start 10/10/18 at 02:00 Lorazepam (Ativan) 1 mg Q4H PRN GTB AGITATION/ANXIETY Last administered on 11/01/18 12:08; Admin Dose 1 MG; Start 10/14/18 at 13:00 Linagliptin (Tradjenta) 5 mg DAILY PO Last administered on 11/04/18 08:30; Admin Dose 5 MG; Start 10/16/18 at 10:30 Fentanyl (Duragesic 50 Mcg/Hr Patch) 1 patch Q72H TRANSDERM Last administered on 11/01/18 21:13; Admin Dose 1 PATCH; Start 10/17/18 at 20:30 Lorazepam (Ativan) 2 mg Q6H GTB Last administered on 11/04/18 08:30; Admin Dose 2 MG; Start 10/20/18 at 15:00 Quetiapine Fumarate (Seroquel) 100 mg BID GTB Last administered on 11/04/18 08:30; Admin Dose 100 MG; Start 10/21/18 at 21:00 Hydromorphone HCl (Dilaudid) 6 mg Q4H PRN PO MODERATE PAIN LEVEL 7-10 Last administered on 3/22/19at 09:46; Admin Dose 6 MG; Start 10/21/18 at 22:00 Calcium Carbonate (Ca Carbonate) 1,250 mg QID GTB Last administered on 11/04/18 12:15; Admin Dose 1,250 MG; Start 10/24/18 at 13:00 Calcitriol (Rocaltrol) 1 mcg BID PO Last administered on 11/04/18 08:29; Admin Dose 1 MCG; Start 10/28/18 at 09:00 Metoprolol Tartrate (Lopressor) 5 mg Q4H PRN IV HR>110 Hold SBP<100; Start 10/28/18 at 12:30 Carvedilol (Coreg) 3.125 mg BID PO Last administered on 11/04/18 08:31; Admin Dose 3.125 MG; Start 11/01/18 at 21:00 Phenylephrine HCl 40 mg/Dextrose 250 ml @ 37.5 mls/hr TITRATE IV Last administered on 11/02/18 09:05; Admin Dose 11.25 MLS/HR; Start 11/01/18 at 13:30 IV Flush (NS 10 ml) 10 ml PRN PRN IV IV PROTOCOL; Start 11/01/18 at 16:30 Collagenase (Santyl) 1 applic DAILY TOP Last administered on 11/04/18 08:29; Admin Dose 1 APPLIC; Start 11/01/18 at 19:30 Norepinephrine 32 mg/Dextrose 250 ml @ 0.47 mls/hr TITRATE IV Last administered on 11/02/18 12:15; Admin Dose 0.47 MLS/HR; Start 11/02/18 at 11:30 Midodrine (Proamatine) 5 mg TID@,13,17 GTB Last administered on 11/04/18 12:15; Admin Dose 5 MG; Start 11/03/18 at 09:00 Guaifenesin (Robitussin Liquid Cup) 100 mg Q4H PRN PO COUGH Last administered on 11/03/18 15:20; Admin Dose 100 MG; Start 11/03/18 at 12:00 Hydrocortisone (Cortef) 20 mg QAM PEG Last administered on 11/04/18 08:29; Admin Dose 20 MG; Start 11/04/18 at 09:00 Hydrocortisone (Cortef) 20 mg AC DINNER PEG ; Start 11/04/18 at 17:05 Hydrocortisone (Cortef) 20 mg HS PEG Last administered on 11/03/18at 22:51; Admin Dose 20 MG; Start 11/03/18 at 22:45 KEV ISSA MD Nov 04, 2018 14:08
[2018-11-04] MEDS: FENTAnyl PATCH 50 MCG/HR TRANSDERM SCH (20:57)
[2018-11-05] VITALS (40 sets, daily range): BP systolic 101–164; BP diastolic 73–116; PULSE 100–135; RESP 18–32
[2018-11-05] MEDS: HYDROmorphONE 2 MG TAB PO PRN ×5 (01:12→20:31)
[2018-11-05] MEDS: ALBUTEROL HFA 8 GM INHALER INH SCH ×4 (01:22→19:58)
[2018-11-05] MEDS: IPRATROPIUM (HFA) 12.9 GM INHALER INH SCH ×4 (01:22→19:59)
[2018-11-05] MEDS: INSULIN ASPART [NOVOLOG] 3 ML PEN SC SCH ×4 (02:00→20:00)
[2018-11-05] MEDS: ACCU-CHEK XX SCH (02:00)
[2018-11-05] MEDS: LORAZEPAM 1 MG TAB GTB SCH ×4 (04:06→22:44)
[2018-11-05] MEDS: LANSOPRAZOLE 30 MG CAP GTB SCH ×2 (05:33→17:05)
[2018-11-05] MEDS: GABAPENTIN (50 MG/ML PO SYG) GTB SCH ×3 (05:33→22:44)
[2018-11-05] MEDS: TRIMETHOPRIM/SULFAMETHOX (PO SYG) GTB SCH (08:17)
[2018-11-05] MEDS: CA CARBONATE (250 MG/ML) 5ML CUP GTB SCH ×4 (08:17→20:33)
[2018-11-05] MEDS: MAGNESIUM OXIDE 400 MG TAB GTB SCH ×2 (08:17→20:34)
[2018-11-05] MEDS: LINAGLIPTIN 5 MG TABLET PO SCH (08:17)
[2018-11-05] MEDS: METOCLOPRAMIDE 10 MG INJ IV SCH ×3 (08:17→20:34)
[2018-11-05] MEDS: LEVETIRACETAM (100 MG/ML) 5ML CUP GTB SCH ×2 (08:17→20:32)
[2018-11-05] MEDS: BALSAM PERU/CASTOR OIL 60 GM TUBE TOP SCH ×2 (08:18→21:42)
[2018-11-05] MEDS: HYDROXYCHLOROQUINE 200 MG TAB PO SCH ×2 (08:18→20:33)
[2018-11-05] MEDS: L ACIDOPHIL/B LACTIS/B LONGUM CAPSULE GTB SCH ×2 (08:18→22:44)
[2018-11-05] MEDS: HYDROCORTISONE 20 MG TAB PEG SCH ×3 (08:18→20:33)
[2018-11-05] MEDS: DULOXETINE 30 MG CAP DR PO SCH (08:18)
[2018-11-05] MEDS: CALCITRIOL 0.5 MCG CAPSULE PO SCH ×2 (08:18→20:34)
[2018-11-05] MEDS: MIDODRINE 5 MG TAB GTB SCH ×3 (08:18→17:05)
[2018-11-05] MEDS: QUETIAPINE 100 MG TAB GTB SCH ×2 (08:18→20:33)
[2018-11-05] MEDS: MICONAZOLE 2% 30 GM CR TOP SCH ×2 (08:19→21:42)
[2018-11-05] MEDS: COLLAGENASE 5 GM (UD JAR) TOP SCH (08:19)
--- NOTE | 2018-11-05 09:09 | PN ---
DATE: 11/05/2018 SUBJECTIVE: The patient is stable. No events overnight. No fevers, chills, nausea, vomiting. OBJECTIVE: VITAL SIGNS: Blood pressure is 133/90, respiration 19, pulse 105, temperature 97.9. HEENT: Head is normocephalic. NECK: Supple. HEART: Regular rate. LUNGS: Show diminished breath sounds at the base. ABDOMEN: Soft, nontender to palpation, without rebound or guarding. EXTREMITIES: Negative for clubbing, cyanosis, no edema. DERMATOLOGIC: No rashes. MUSCULOSKELETAL: No joint effusion. NEUROLOGIC: No change in exam. MEDICATIONS: Reviewed. LABORATORY DATA: From 11/04/2018 was reviewed. ASSESSMENT AND PLAN: 1. Nonoliguric acute kidney injury with previously normal baseline creatinine. Etiology secondary t o hemodynamics. Renal function is improved. Continue to monitor. 2. Volume overload, improved. Continue to monitor, will give intermittent diuretic therapy as neede d. 3. Ventilatory dependent respiratory failure. Vent settings and ABG was reviewed. Continue to [facility]. 4. Hypertension, status post shock, etiology is multifactorial secondary to renal sufficiency, hemod ynamics. The patient's steroids have been adjusted. Continue current medical management. Continue low-dose midodrine. 5. Anemia. Continue to monitor hemoglobin and hematocrit levels. 6. Dysphagia, status post PEG, continue tube feeding. 7. Adrenal insufficiency. Continue Cortef according to endocrinology. 8. Seizure disorder. Continue medical management. 9. Anxiety disorder. 10. Hypomagnesemia. Continue to monitor and replete. 11. Mineral bone disorder, monitor calcium and phosphorus levels. Continue vitamin D analogs per end ocrinology. Dictated By: UNA HONG/EFREN Conf#: [id number] DID#: [id number]
[2018-11-05] MEDS: METOPROLOL 5 MG INJ IV PRN (09:25)
--- NOTE | 2018-11-05 11:49 | PN ---
Date/Time of Note Date/Time of Note DATE: 11/05/18 TIME: 11:48 Assessment/Plan VTE Prophylaxis Risk score (from Ns)>0 risk: 10 SCD applied (from Ns): Yes Pharmacological prophylaxis: LMWH Lines/Catheters IV Catheter Type (from [facility]): PICC Line Central line still needed: Yes Urinary Cath still in place: No Assessment/Plan Hospital Course 1. Respiratory failure. Continue vent support and breathing treatment. 2. Septic shock. Continue Bactrim for pneumocystis prophylaxis. Continue to monitor off further systemic antibiotic. 3. Leukocytosis. The patient is on chronic steroid due to rheumatoid arthritis. 4. Quadriplegia due to cervical myelopathy status post surgery. 5. Chronic pain syndrome, stable. 6. Seizure disorder. Continue Keppra. 7. Hypothyroidism. Continue replacement therapy. 8. Primary hypoparathyroidism. Calcium is 7.1. The patient is being followed by Dr. Magallanes. 9. Hypokalemia. The patient did receive 40 mEq of potassium. The patient also will receive 2 units of PRBC for his anemia. There is no obvious bleeding from any site. The patient remains critical and will be kept in ICU. Result Diagram: 11/04/18 0400 11/04/18 0400 Results 24hrs Laboratory Tests Test 11/04/18 14:03 11/04/18 20:12 11/05/18 02:38 11/05/18 08:16 Bedside Glucose 121 132 123 102 Subjective 24 Hr Interval Summary Free Text/Dictation Patient resting, on vent via trach Exam/Review of Systems Exam Vitals Vital Signs Date Temp Pulse Resp B/P (MAP) Pulse Ox O2 O2 Flow FiO2 Time Delivery Rate 11/05/18 105 20 101/73 98 Mechanical 11:00 (82) Ventilator 11/05/18 80 09:10 11/05/18 97.9 07:00 Intake and Output 11/04/18 11/04/18 11/05/18 1515:00 23:00 07:00 IntakeIntake Total 380 ml 420 ml 520 ml OutputOutput Total 320 ml 40 ml 1040 ml BalanceBalance 60 ml 380 ml -520 ml Head: normocephalic, atraumatic Neck: supple Respiratory: diminished breath sounds Cardiovascular: regular rate and rhythm Gastrointestinal: soft, non-tender Extremities: normal pulses Results Results 24hrs Laboratory Tests Test 11/04/18 14:03 11/04/18 20:12 11/05/18 02:38 11/05/18 08:16 Bedside Glucose 121 132 123 102 Medications Medication Current Medications Acetaminophen (Tylenol Liquid) 650 mg Q4H PRN GTB MILD PAIN(1-3)OR ELEVATED TEMP Last administered on 10/16/18 07:52; Admin Dose 650 MG; Start 10/09/18 at 14:00 Al Hydrox/Mg Hydrox/Simethicone (Mag-Al Plus) 15 ml Q6H PRN PO GASTROINTESTINAL UPSET Last administered on 10/17/18 13:18; Admin Dose 15 ML; Start 10/09/18 at 14:00 Eye Lubricant (Artificial Tears Oph) 1 drop Q6H PRN BOTH EYES DRY EYES Last administered on 11/03/18 09:33; Admin Dose 1 DROP; Start 10/09/18 at 14:00 Bisacodyl (Dulcolax Supp) 10 mg DAILY PRN [place] CONSTIPATION; Start 10/09/18 at 14:00 Clonidine (Catapres) 0.1 mg DAILY PRN GTB ELEVATED BLOOD PRESSURE; Start 10/09/18 at 14:00 Diltiazem HCl (Cardizem Iv) 5 mg Q4 PRN IV ELEVATED HEART RATE Last administered on 10/18/18 01:09; Admin Dose 5 MG; Start 10/09/18 at 14:00 Diphenhydramine HCl (Benadryl Liquid Cup) 25 mg Q6 PRN GTB ITCHING Last administered on 10/22/18 20:25; Admin Dose 25 MG; Start 10/09/18 at 14:00 Duloxetine HCl (Cymbalta) 30 mg DAILY PO Last administered on 11/05/18 08:18; Admin Dose 30 MG; Start 10/10/18 at 09:00 Gabapentin (Neurontin Liquid) 400 mg Q8 GTB Last administered on 11/05/18 05:33; Admin Dose 400 MG; Start 10/09/18 at 15:30 Hydralazine HCl (Apresoline) 10 mg Q4H PRN IV ELEVATED BLOOD PRESSURE; Start 10/09/18 at 14:00 Hydroxychloroquine Sulfate (Plaquenil) 200 mg BID PO Last administered on 11/05/18 08:18; Admin Dose 200 MG; Start 10/09/18 at 21:00 Diagnostic Test (Pha) (Accu-Chek) 1 ea 02 XX Last administered on 11/04/18 02:27; Admin Dose 1 EA; Start 10/10/18 at 02:00 Insulin Aspart (Novolog Insulin Pen) NOVOLOG *CUSTOM* ALGORITHM Q6H SC Last administered on 11/03/18 02:36; Admin Dose 1 UNIT; Start 10/09/18 at 14:00 Lactobacillus Acidophilus (Florajen3 Capsule) 1 each BID GTB Last administered on 11/05/18 08:18; Admin Dose 1 EACH; Start 10/09/18 at 21:00 Lansoprazole (Prevacid) 30 mg BID@,18 GTB Last administered on 11/05/18 05:33; Admin Dose 30 MG; Start 10/09/18 at 18:00 Levetiracetam (Keppra Liquid) 500 mg BID GTB Last administered on 11/05/18 08:17; Admin Dose 500 MG; Start 10/09/18 at 21:00 Magnesium Oxide (Mag-Ox 400) 400 mg BID GTB Last administered on 11/05/18 08:17; Admin Dose 400 MG; Start 10/09/18 at 21:00 Metoclopramide HCl (Reglan) 10 mg TID IV Last administered on 11/05/18 08:17; Admin Dose 10 MG; Start 10/09/18 at 21:00 Miconazole Nitrate (Miconazole 2% Cr) 1 applic BID TOP Last administered on 11/05/18 08:19; Admin Dose 1 APPLIC; Start 10/09/18 at 21:00 Miconazole Nitrate (Miconazole 2% Cr) 1 applic Q12 PRN TOP rash; Start 10/09/18 at 14:00 Ondansetron HCl (Zofran Inj) 4 mg Q4H PRN IV NAUSEA AND/OR VOMITING Last administered on 10/19/18 16:37; Admin Dose 4 MG; Start 10/09/18 at 14:00 Polyethylene Glycol (Miralax) 17 gm DAILY PRN GTB CONSTIPATION; Start 10/09/18 at 14:00 Senna (Senokot) 2 tab Q8 PRN PO CONSTIPATION; Start 10/09/18 at 14:00 Trimethoprim/ Sulfamethoxazole (Bactrim Susp) 40 ml DAILY GTB Last administered on 11/05/18 08:17; Admin Dose 40 ML; Start 10/10/18 at 09:00 Zolpidem Tartrate (Ambien) 5 mg HS PRN PO INSOMNIA Last administered on 11/03/18at 01:16; Admin Dose 5 MG; Start 10/09/18 at 14:00 Miscellaneous Information 1 ea NOTE XX ; Start 10/09/18 at 15:00 Glucose (Glutose) 15 gm Q15M PRN PO DECREASED GLUCOSE; Start 10/09/18 at 15:00 Glucose (Glutose) 22.5 gm Q15M PRN PO DECREASED GLUCOSE; Start 10/09/18 at 15:00 Dextrose (D50w Syringe) 25 ml Q15M PRN IV DECREASED GLUCOSE; Start 10/09/18 at 15:00 Dextrose (D50w Syringe) 50 ml Q15M PRN IV DECREASED GLUCOSE; Start 10/09/18 at 15:00 Glucagon (Glucagen) 1 mg Q15M PRN IM DECREASED GLUCOSE; Start 10/09/18 at 15:00 Glucose (Glutose) 15 gm Q15M PRN BUCCAL DECREASED GLUCOSE; Start 10/09/18 at 15:00 Sodium Chloride 500 ml @ 500 mls/hr Q1H PRN IV BLOOD PRESSURE SUPPORT Last administered on 10/31/18at 03:35; Admin Dose 500 MLS/HR; Start 10/09/18 at 19:30 Albuterol (Ventolin Hfa) 4 puff Q6H RESP THERAPY INH Last administered on 11/05/18 07:48; Admin Dose 4 PUFF; Start 10/10/18 at 02:00 Ipratropium [place] (Atrovent Hfa) 4 puff Q6H RESP THERAPY INH Last administered on 11/05/18 07:48; Admin Dose 4 PUFF; Start 10/10/18 at 02:00 Lorazepam (Ativan) 1 mg Q4H PRN GTB AGITATION/ANXIETY Last administered on 11/01/18at 12:08; Admin Dose 1 MG; Start 10/14/18 at 13:00 Linagliptin (Tradjenta) 5 mg DAILY PO Last administered on 11/05/18 08:17; Admin Dose 5 MG; Start 10/16/18 at 10:30 Fentanyl (Duragesic 50 Mcg/Hr Patch) 1 patch Q72H TRANSDERM Last administered on 11/04/18 20:57; Admin Dose 1 PATCH; Start 10/17/18 at 20:30 Lorazepam (Ativan) 2 mg Q6H GTB Last administered on 11/05/18 08:17; Admin Dose 2 MG; Start 10/20/18 at 15:00 Quetiapine Fumarate (Seroquel) 100 mg BID GTB Last administered on 11/05/18 0 8:18; Admin Dose 100 MG; Start 10/21/18 at 21:00 Hydromorphone HCl (Dilaudid) 6 mg Q4H PRN PO MODERATE PAIN LEVEL 7-10 Last administered on 11/05/18 09:25; Admin Dose 6 MG; Start 10/21/18 at 22:00 Calcium Carbonate (Ca Carbonate) 1,250 mg QID GTB Last administered on 11/05/18 08:17; Admin Dose 1,250 MG; Start 10/24/18 at 13:00 Calcitriol (Rocaltrol) 1 mcg BID PO Last administered on 11/05/18 08:18; Admin Dose 1 MCG; Start 10/28/18 at 09:00 Metoprolol Tartrate (Lopressor) 5 mg Q4H PRN IV HR>110 Hold SBP<100 Last administered on 11/05/18 09:25; Admin Dose 5 MG; Start 10/28/18 at 12:30 Carvedilol (Coreg) 3.125 mg BID PO Last administered on 11/05/18 08:30; Admin Dose 3.125 MG; Start 11/01/18 at 21:00 Phenylephrine HCl 40 mg/Dextrose 250 ml @ 37.5 mls/hr TITRATE IV Last administered on 11/02/18 09:05; Admin Dose 11.25 MLS/HR; Start 11/01/18 at 13:30 IV Flush (NS 10 ml) 10 ml PRN PRN IV IV PROTOCOL; Start 11/01/18 at 16:30 Collagenase (Santyl) 1 applic DAILY TOP Last administered on 11/05/18 08:19; Admin Dose 1 APPLIC; Start 11/01/18 at 19:30 Norepinephrine 32 mg/Dextrose 250 ml @ 0.47 mls/hr TITRATE IV Last administered on 11/02/18 12:15; Admin Dose 0.47 MLS/HR; Start 11/02/18 at 11:30 Midodrine (Proamatine) 5 mg TID@,13,17 GTB Last administered on 11/05/18 08:18; Admin Dose 5 MG; Start 11/03/18 at 09:00 Guaifenesin (Robitussin Liquid Cup) 100 mg Q4H PRN PO COUGH Last administered on 11/03/18 15:20; Admin Dose 100 MG; Start 11/03/18 at 12:00 Hydrocortisone (Cortef) 20 mg QAM PEG Last administered on 11/05/18 08:18; Admin Dose 20 MG; Start 11/04/18 at 09:00 Hydrocortisone (Cortef) 20 mg AC DINNER PEG Last administered on 11/04/18 16:49; Admin Dose 20 MG; Start 11/04/18 at 17:05 Hydrocortisone (Cortef) 20 mg HS PEG Last administered on 11/04/18 20:14; Admin Dose 20 MG; Start 11/03/18 at 22:45 ANGELES HO Nov 05, 2018 11:48
--- NOTE | 2018-11-05 13:33 | CONS ---
Assessment/Plan Assessment/Plan Assessment/Plan (Daily) Interval History-FiO2 60% and has episodes of desaturation. Ativan PO and dilaudid PO around the clock for anxiety. Brown stool. CXR shows increase in infiltrates. 1. Respiratory failure secondary to pneumonia versus interstitial pneumonitis from rheumatoid arthritis versus mild aspiration. -on Bactrim 2. Severe rheumatoid arthritis. 3. Quadriplegia. 4. Adrenal insufficiency. 5. Gastroparesis. -Reglan, denies nausea 6. Hypothyroidism. 7. Chronic pain syndrome. 8. Hypertension. 9. 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 Leukocytosis secondary to steroids 11.ARDS 12. Anxiety -on PO ativan 13. Anemia, there is significant drop in the hematocrit PLAN: Continue supportive ICU care Nothing by mouth per swallow eval results Continue with tube feeds check residuals q 4 hours Continue Reglan. And a PPI Stool for occult blood Monitor H&H Consultation Date/Type/Reason Admit Date/Time Oct 09, 2018 at 12:16 Initial Consult Date 10/12/18 Requesting Provider: NOLA VIDAL MD Date/Time of Note DATE: 11/05/18 TIME: 13:31 24 HR Interval Summary Constitutional: no complaints Exam/Review of Systems Exam Vitals Vital Signs Date Temp Pulse Resp B/P (MAP) Pulse Ox O2 O2 Flow FiO2 Time Delivery Rate 11/05/18 114 22 99 75 13:25 11/05/18 98.3 104/75 Mechanical 12:00 (85) Ventilator Intake and Output 11/04/18 11/04/18 11/05/18 1515:00 23:00 07:00 IntakeIntake Total 380 ml 420 ml 520 ml OutputOutput Total 320 ml 40 ml 1040 ml BalanceBalance 60 ml 380 ml -520 ml Constitutional: alert Eyes: nl conjunctiva ENMT: nl external ears & nose Respiratory: diminished breath sounds Cardiovascular: nl pulses Extremities: normal pulses Results Result Diagram: 11/04/18 0400 11/04/18 0400 Results 24hrs Laboratory Tests Test 11/04/18 14:03 11/04/18 20:12 11/05/18 02:38 11/05/18 08:16 Bedside Glucose 121 132 123 102 Medications Medication Current Medications Acetaminophen (Tylenol Liquid) 650 mg Q4H PRN GTB MILD PAIN(1-3)OR ELEVATED TEMP Last administered on 10/16/18 07:52; Admin Dose 650 MG; Start 10/09/18 at 14:00 Al Hydrox/Mg Hydrox/Simethicone (Mag-Al Plus) 15 ml Q6H PRN PO GASTROINTESTINAL UPSET Last administered on 10/17/18 13:18; Admin Dose 15 ML; Start 10/09/18 at 14:00 Eye Lubricant (Artificial Tears Oph) 1 drop Q6H PRN BOTH EYES DRY EYES Last administered on 11/03/18 09:33; Admin Dose 1 DROP; Start 10/09/18 at 14:00 Bisacodyl (Dulcolax Supp) 10 mg DAILY PRN [place] CONSTIPATION; Start 10/09/18 at 14:00 Clonidine (Catapres) 0.1 mg DAILY PRN GTB ELEVATED BLOOD PRESSURE; Start 10/09/18 at 14:00 Diltiazem HCl (Cardizem Iv) 5 mg Q4 PRN IV ELEVATED HEART RATE Last administered on 10/18/18 01:09; Admin Dose 5 MG; Start 10/09/18 at 14:00 Diphenhydramine HCl (Benadryl Liquid Cup) 25 mg Q6 PRN GTB ITCHING Last adm inistered on 10/22/18 20:25; Admin Dose 25 MG; Start 10/09/18 at 14:00 Duloxetine HCl (Cymbalta) 30 mg DAILY PO Last administered on 11/05/18 08:18; Admin Dose 30 MG; Start 10/10/18 at 09:00 Gabapentin (Neurontin Liquid) 400 mg Q8 GTB Last administered on 11/05/18 05:33; Admin Dose 400 MG; Start 10/09/18 at 15:30 Hydralazine HCl (Apresoline) 10 mg Q4H PRN IV ELEVATED BLOOD PRESSURE; Start 10/09/18 at 14:00 Hydroxychloroquine Sulfate (Plaquenil) 200 mg BID PO Last administered on 11/05/18 08:18; Admin Dose 200 MG; Start 10/09/18 at 21:00 Diagnostic Test (Pha) (Accu-Chek) 1 ea 02 XX Last administered on 11/04/18 02:27; Admin Dose 1 EA; Start 10/10/18 at 02:00 Insulin Aspart (Novolog Insulin Pen) NOVOLOG *CUSTOM* ALGORITHM Q6H SC Last administered on 11/03/18 02:36; Admin Dose 1 UNIT; Start 10/09/18 at 14:00 Lactobacillus Acidophilus (Florajen3 Capsule) 1 each BID GTB Last administered on 11/05/18 08:18; Admin Dose 1 EACH; Start 10/09/18 at 21:00 Lansoprazole (Prevacid) 30 mg BID@,18 GTB Last administered on 11/05/18 05:33; Admin Dose 30 MG; Start 10/09/18 at 18:00 Levetiracetam (Keppra Liquid) 500 mg BID GTB Last administered on 11/05/18 08:17; Admin Dose 500 MG; Start 10/09/18 at 21:00 Magnesium Oxide (Mag-Ox 400) 400 mg BID GTB Last administered on 11/05/18at 0 8:17; Admin Dose 400 MG; Start 10/09/18 at 21:00 Metoclopramide HCl (Reglan) 10 mg TID IV Last administered on 11/05/18 08:17; Admin Dose 10 MG; Start 10/09/18 at 21:00 Miconazole Nitrate (Miconazole 2% Cr) 1 applic BID TOP Last administered on 11/05/18 08:19; Admin Dose 1 APPLIC; Start 10/09/18 at 21:00 Miconazole Nitrate (Miconazole 2% Cr) 1 applic Q12 PRN TOP rash; Start 10/09/18 at 14:00 Ondansetron HCl (Zofran Inj) 4 mg Q4H PRN IV NAUSEA AND/OR VOMITING Last administered on 10/19/18at 16:37; Admin Dose 4 MG; Start 10/09/18 at 14:00 Polyethylene Glycol (Miralax) 17 gm DAILY PRN GTB CONSTIPATION; Start 10/09/18 at 14:00 Senna (Senokot) 2 tab Q8 PRN PO CONSTIPATION; Start 10/09/18 at 14:00 Trimethoprim/ Sulfamethoxazole (Bactrim Susp) 40 ml DAILY GTB Last administered on 11/05/18 08:17; Admin Dose 40 ML; Start 10/10/18 at 09:00 Zolpidem Tartrate (Ambien) 5 mg HS PRN PO INSOMNIA Last administered on 11/03/18 01:16; Admin Dose 5 MG; Start 10/09/18 at 14:00 Miscellaneous Information 1 ea NOTE XX ; Start 10/09/18 at 15:00 Glucose (Glutose) 15 gm Q15M PRN PO DECREASED GLUCOSE; Start 10/09/18 at 15:00 Glucose (Glutose) 22.5 gm Q15M PRN PO DECREASED GLUCOSE; Start 10/09/18 at 15:00 Dextrose (D50w Syringe) 25 ml Q15M PRN IV DECREASED GLUCOSE; Start 10/09/18 at 15:00 Dextrose (D50w Syringe) 50 ml Q15M PRN IV DECREASED GLUCOSE; Start 10/09/18 at 15:00 Glucagon (Glucagen) 1 mg Q15M PRN IM DECREASED GLUCOSE; Start 10/09/18 at 15:00 Glucose (Glutose) 15 gm Q15M PRN BUCCAL DECREASED GLUCOSE; Start 10/09/18 at 15:00 Sodium Chloride 500 ml @ 500 mls/hr Q1H PRN IV BLOOD PRESSURE SUPPORT Last administered on 10/31/18at 03:35; Admin Dose 500 MLS/HR; Start 10/09/18 at 19:30 Albuterol (Ventolin Hfa) 4 puff Q6H RESP THERAPY INH Last administered on 11/05/18 13:25; Admin Dose 4 PUFF; Start 10/10/18 at 02:00 Ipratropium [place] (Atrovent Hfa) 4 puff Q6H RESP THERAPY INH Last administered on 11/05/18 13:25; Admin Dose 4 PUFF; Start 10/10/18 at 02:00 Lorazepam (Ativan) 1 mg Q4H PRN GTB AGITATION/ANXIETY Last administered on 11/01/18 12:08; Admin Dose 1 MG; Start 10/14/18 at 13:00 Linagliptin (Tradjenta) 5 mg DAILY PO Last administered on 11/05/18 08:17; Admin Dose 5 MG; Start 10/16/18 at 10:30 Fentanyl (Duragesic 50 Mcg/Hr Patch) 1 patch Q72H TRANSDERM Last administered on 11/04/18at 20:57; Admin Dose 1 PATCH; Start 10/17/18 at 20:30 Lorazepam (Ativan) 2 mg Q6H GTB Last administered on 11/05/18 08:17; Admin Dose 2 MG; Start 10/20/18 at 15:00 Quetiapine Fumarate (Seroquel) 100 mg BID GTB Last administered on 11/05/18 08:18; Admin Dose 100 MG; Start 10/21/18 at 21:00 Hydromorphone HCl (Dilaudid) 6 mg Q4H PRN PO MODERATE PAIN LEVEL 7-10 Last administered on 11/05/18 09:25; Admin Dose 6 MG; Start 10/21/18 at 22:00 Calcium Carbonate (Ca Carbonate) 1,250 mg QID GTB Last administered on 11/05/18 12:25; Admin Dose 1,250 MG; Start 10/24/18 at 13:00 Calcitriol (Rocaltrol) 1 mcg BID PO Last administered on 11/05/18 08:18; Admin Dose 1 MCG; Start 10/28/18 at 09:00 Metoprolol Tartrate (Lopressor) 5 mg Q4H PRN IV HR>110 Hold SBP<100 Last administered on 11/05/18 09:25; Admin Dose 5 MG; Start 10/28/18 at 12:30 Carvedilol (Coreg) 3.125 mg BID PO Last administered on 11/05/18 08:30; Admin Dose 3.125 MG; Start 11/01/18 at 21:00 Phenylephrine HCl 40 mg/Dextrose 250 ml @ 37.5 mls/hr TITRATE IV Last administered on 11/02/18 09:05; Admin Dose 11.25 MLS/HR; Start 11/01/18 at 13:30 IV Flush (NS 10 ml) 10 ml PRN PRN IV IV PROTOCOL; Start 11/01/18 at 16:30 Collagenase (Santyl) 1 applic DAILY TOP Last administered on 11/05/18 08:19; Admin Dose 1 APPLIC; Start 11/01/18 at 19:30 Norepinephrine 32 mg/Dextrose 250 ml @ 0.47 mls/hr TITRATE IV Last administered on 11/02/18 12:15; Admin Dose 0.47 MLS/HR; Start 11/02/18 at 11:30 Midodrine (Proamatine) 5 mg TID@,,17 GTB Last administered on 11/05/18 12:26; Admin Dose 5 MG; Start 11/03/18 at 09:00 Guaifenesin (Robitussin Liquid Cup) 100 mg Q4H PRN PO COUGH Last administered on 11/03/18 15:20; Admin Dose 100 MG; Start 11/03/18 at 12:00 Hydrocortisone (Cortef) 20 mg QAM PEG Last administered on 11/05/18 08:18; Admin Dose 20 MG; Start 11/04/18 at 09:00 Hydrocortisone (Cortef) 20 mg AC DINNER PEG Last administered on 11/04/18at 16:49; Admin Dose 20 MG; Start 11/04/18 at 17:05 Hydrocortisone (Cortef) 20 mg HS PEG Last administered on 11/04/18 20:14; Admin Dose 20 MG; Start 11/03/18 at 22:45 BHAVIK RUBIO MD Nov 05, 2018 13:33
--- NOTE | 2018-11-05 13:36 | CONS ---
Assessment/Plan Cardiology Heart Failure Type: Acute on Chronic Heart Failure Type: Systolic Assessment/Plan Hospital Course (Demo Recall) IMPRESSION: 1. Tachycardia- S tach. Ongoimg Likley due to anxiety/infection/cardiomyopathy, multifactorial 2. Hypotension-now off pressors 3. Abnormal electrocardiogram at baseline. 4. Chronic respiratory failure, status post tracheostomy.-weaning vent support 5. Dysphagia, status post G-tube. 6. Quadriplegia. 7. Renal insufficiency, on steroids. 8. Chronic obstructive pulmonary disease. 9. Rheumatoid arthritis. 10. Chronic kidney disease. 11. Diabetes mellitus. 12.Adrenal insufficiency 14. cardiomyopathy-EF 35-40% by echo this admit Recc -ICU -Ongoing Vent support with inability to wean from High percentage FI02 -Continue abx's and f/u cx data -continue steroids -Follow volume status -continue midodrine BP support as necessary -Continue coreg as tolerated -Now DNR Consultation Date/Type/Reason Admit Date/Time Oct 09, 2018 at 12:16 Initial Consult Date 10/09/18 Type of Consult Cardiology Reason for Consultation tachycardia Requesting Provider: NOLA VIDAL MD Date/Time of Note DATE: 11/05/18 TIME: 13:34 Exam/Review of Systems Vital Signs Vitals Vital Signs Date Temp Pulse Resp B/P (MAP) Pulse Ox O2 O2 Flow FiO2 Time Delivery Rate 11/05/18 114 22 99 75 13:25 11/05/18 98.3 104/75 Mechanical 12:00 (85) Ventilator Intake and Output 11/04/18 11/04/18 11/05/18 1515:00 23:00 07:00 IntakeIntake Total 380 ml 420 ml 520 ml OutputOutput Total 320 ml 40 ml 1040 ml BalanceBalance 60 ml 380 ml -520 ml Exam Exam Review of Systems: CONSTITUTIONAL: No fevers, chills. PULMONARY: No sob CARDIOVASCULAR: No chest pain/palpitations GASTROINTESTINAL: No nausea/vomiting. GENITOURINARY: No hematuria/dysuria. MUSCULOSKELETAL: No myagias/arthalgias. PSYCHIATRIC: The patient denies depression. NEUROLOGIC: No weakness Constitutional: alert Psych: no complaints Head: normocephalic ENMT: mucosa pink and moist Neck: supple, jvd (9 cm water) Respiratory: diminished breath sounds Cardiovascular: other (tachycardic) Gastrointestinal: soft Musculoskeletal: muscle weakness (generalized) Extremities: edema (trace/B) Neurological: other (quadriplegic) Labs Result Diagram: 11/04/18 0400 11/04/18 0400 Results 24hrs Laboratory Tests Test 11/04/18 14:03 11/04/18 20:12 11/05/18 02:38 11/05/18 08:16 Bedside Glucose 121 132 123 102 Medications Medications Current Medications Acetaminophen (Tylenol Liquid) 650 mg Q4H PRN GTB MILD PAIN(1-3)OR ELEVATED TEMP Last administered on 10/16/18 07:52; Admin Dose 650 MG; Start 10/09/18 at 14:00 Al Hydrox/Mg Hydrox/Simethicone (Mag-Al Plus) 15 ml Q6H PRN PO GASTROINTESTINAL UPSET Last administered on 10/17/18 13:18; Admin Dose 15 ML; Start 10/09/18 at 14:00 Eye Lubricant (Artificial Tears Oph) 1 drop Q6H PRN BOTH EYES DRY EYES Last administered on 11/03/18 09:33; Admin Dose 1 DROP; Start 10/09/18 at 14:00 Bisacodyl (Dulcolax Supp) 10 mg DAILY PRN [place] CONSTIPATION; Start 10/09/18 at 14:00 Clonidine (Catapres) 0.1 mg DAILY PRN GTB ELEVATED BLOOD PRESSURE; Start 10/09/18 at 14:00 Diltiazem HCl (Cardizem Iv) 5 mg Q4 PRN IV ELEVATED HEART RATE Last administered on 10/18/18 01:09; Admin Dose 5 MG; Start 10/09/18 at 14:00 Diphenhydramine HCl (Benadryl Liquid Cup) 25 mg Q6 PRN GTB ITCHING Last administered on 10/22/18 20:25; Admin Dose 25 MG; Start 10/09/18 at 14:00 Duloxetine HCl (Cymbalta) 30 mg DAILY PO Last administered on 11/05/18 08:18; Admin Dose 30 MG; Start 10/10/18 at 09:00 Gabapentin (Neurontin Liquid) 400 mg Q8 GTB Last administered on 11/05/18 05:33; Admin Dose 400 MG; Start 10/09/18 at 15:30 Hydralazine HCl (Apresoline) 10 mg Q4H PRN IV ELEVATED BLOOD PRESSURE; Start 10/09/18 at 14:00 Hydroxychloroquine Sulfate (Plaquenil) 200 mg BID PO Last administered on 11/05/18 08:18; Admin Dose 200 MG; Start 10/09/18 at 21:00 Diagnostic Test (Pha) (Accu-Chek) 1 ea 02 XX Last administered on 11/04/18 02:27; Admin Dose 1 EA; Start 10/10/18 at 02:00 Insulin Aspart (Novolog Insulin Pen) NOVOLOG *CUSTOM* ALGORITHM Q6H SC Last administered on 11/03/18 02:36; Admin Dose 1 UNIT; Start 10/09/18 at 14:00 Lactobacillus Acidophilus (Florajen3 Capsule) 1 each BID GTB Last administered on 11/05/18 08:18; Admin Dose 1 EACH; Start 10/09/18 at 21:00 Lansoprazole (Prevacid) 30 mg BID@,18 GTB Last administered on 11/05/18 05:33; Admin Dose 30 MG; Start 10/09/18 at 18:00 Levetiracetam (Keppra Liquid) 500 mg BID GTB Last administered on 11/05/18 08:17; Admin Dose 500 MG; Start 10/09/18 at 21:00 Magnesium Oxide (Mag-Ox 400) 400 mg BID GTB Last administered on 11/05/18 08:17; Admin Dose 400 MG; Start 10/09/18 at 21:00 Metoclopramide HCl (Reglan) 10 mg TID IV Last administered on 11/05/18 08:17; Admin Dose 10 MG; Start 10/09/18 at 21:00 Miconazole Nitrate (Miconazole 2% Cr) 1 applic BID TOP Last administered on 11/05/18 08:19; Admin Dose 1 APPLIC; Start 10/09/18 at 21:00 Miconazole Nitrate (Miconazole 2% Cr) 1 applic Q12 PRN TOP rash; Start 10/09/18 at 14:00 Ondansetron HCl (Zofran Inj) 4 mg Q4H PRN IV NAUSEA AND/OR VOMITING Last administered on 10/19/18 16:37; Admin Dose 4 MG; Start 10/09/18 at 14:00 Polyethylene Glycol (Miralax) 17 gm DAILY PRN GTB CONSTIPATION; Start 10/09/18 at 14:00 Senna (Senokot) 2 tab Q8 PRN PO CONSTIPATION; Start 10/09/18 at 14:00 Trimethoprim/ Sulfamethoxazole (Bactrim Susp) 40 ml DAILY GTB Last administered on 11/05/18at 08:17; Admin Dose 40 ML; Start 10/10/18 at 09:00 Zolpidem Tartrate (Ambien) 5 mg HS PRN PO INSOMNIA Last administered on 11/03/18at 01:16; Admin Dose 5 MG; Start 10/09/18 at 14:00 Miscellaneous Information 1 ea NOTE XX ; Start 10/09/18 at 15:00 Glucose (Glutose) 15 gm Q15M PRN PO DECREASED GLUCOSE; Start 10/09/18 at 15:00 Glucose (Glutose) 22.5 gm Q15M PRN PO DECREASED GLUCOSE; Start 10/09/18 at 15:00 Dextrose (D50w Syringe) 25 ml Q15M PRN IV DECREASED GLUCOSE; Start 10/09/18 at 15:00 Dextrose (D50w Syringe) 50 ml Q15M PRN IV DECREASED GLUCOSE; Start 10/09/18 at 15:00 Glucagon (Glucagen) 1 mg Q15M PRN IM DECREASED GLUCOSE; Start 10/09/18 at 15:00 Glucose (Glutose) 15 gm Q15M PRN BUCCAL DECREASED GLUCOSE; Start 10/09/18 at 15:00 Sodium Chloride 500 ml @ 500 mls/hr Q1H PRN IV BLOOD PRESSURE SUPPORT Last administered on 10/31/18at 03:35; Admin Dose 500 MLS/HR; Start 10/09/18 at 19:30 Albuterol (Ventolin Hfa) 4 puff Q6H RESP THERAPY INH Last administered on 11/05/18 13:25; Admin Dose 4 PUFF; Start 10/10/18 at 02:00 Ipratropium [place] (Atrovent Hfa) 4 puff Q6H RESP THERAPY INH Last administered on 11/05/18at 13:25; Admin Dose 4 PUFF; Start 10/10/18 at 02:00 Lorazepam (Ativan) 1 mg Q4H PRN GTB AGITATION/ANXIETY Last administered on 11/01/18at 12:08; Admin Dose 1 MG; Start 10/14/18 at 13:00 Linagliptin (Tradjenta) 5 mg DAILY PO Last administered on 11/05/18 08:17; Admin Dose 5 MG; Start 10/16/18 at 10:30 Fentanyl (Duragesic 50 Mcg/Hr Patch) 1 patch Q72H TRANSDERM Last administered on 11/04/18 20:57; Admin Dose 1 PATCH; Start 10/17/18 at 20:30 Lorazepam (Ativan) 2 mg Q6H GTB Last administered on 11/05/18 08:17; Admin Dose 2 MG; Start 10/20/18 at 15:00 Quetiapine Fumarate (Seroquel) 100 mg BID GTB Last administered on 11/05/18 08:18; Admin Dose 100 MG; Start 10/21/18 at 21:00 Hydromorphone HCl (Dilaudid) 6 mg Q4H PRN PO MODERATE PAIN LEVEL 7-10 Last administered on 11/05/18 09:25; Admin Dose 6 MG; Start 10/21/18 at 22:00 Calcium Carbonate (Ca Carbonate) 1,250 mg QID GTB Last administered on 11/05/18 12:25; Admin Dose 1,250 MG; Start 10/24/18 at 13:00 Calcitriol (Rocaltrol) 1 mcg BID PO Last administered on 11/05/18 08:18; Admin Dose 1 MCG; Start 10/28/18 at 09:00 Metoprolol Tartrate (Lopressor) 5 mg Q4H PRN IV HR>110 Hold SBP<100 Last administered on 11/05/18 09:25; Admin Dose 5 MG; Start 10/28/18 at 12:30 Carvedilol (Coreg) 3.125 mg BID PO Last administered on 11/05/18 08:30; Admin Dose 3.125 MG; Start 11/01/18 at 21:00 Phenylephrine HCl 40 mg/Dextrose 250 ml @ 37.5 mls/hr TITRATE IV Last administered on 11/02/18 09:05; Admin Dose 11.25 MLS/HR; Start 11/01/18 at 13:30 IV Flush (NS 10 ml) 10 ml PRN PRN IV IV PROTOCOL; Start 11/01/18 at 16:30 Collagenase (Santyl) 1 applic DAILY TOP Last administered on 11/05/18 08:19; Admin Dose 1 APPLIC; Start 11/01/18 at 19:30 Norepinephrine 32 mg/Dextrose 250 ml @ 0.47 mls/hr TITRATE IV Last administered on 11/02/18 12:15; Admin Dose 0.47 MLS/HR; Start 11/02/18 at 11:30 Midodrine (Proamatine) 5 mg TID@09,13,17 GTB Last administered on 11/05/18 12:26; Admin Dose 5 MG; Start 11/03/18 at 09:00 Guaifenesin (Robitussin Liquid Cup) 100 mg Q4H PRN PO COUGH Last administered on 11/03/18 15:20; Admin Dose 100 MG; Start 11/03/18 at 12:00 Hydrocortisone (Cortef) 20 mg QAM PEG Last administered on 11/05/18 08:18; Admin Dose 20 MG; Start 11/04/18 at 09:00 Hydrocortisone (Cortef) 20 mg AC DINNER PEG Last administered on 11/04/18 16:49; Admin Dose 20 MG; Start 11/04/18 at 17:05 Hydrocortisone (Cortef) 20 mg HS PEG Last administered on 11/04/18 20:14; Admin Dose 20 MG; Start 11/03/18 at 22:45 BRISA HAQUE Nov 05, 2018 13:36
--- NOTE | 2018-11-05 13:39 | PN ---
DATE: 11/04/2018 SUBJECTIVE: Follow up on C-spine cardioplegia, respiratory failure. Primary hypoparathyroidism, sei zure disorder, hypothyroidism, recent pneumonia. The patient remains vent dependent and is currently on FIO2 80%. Denies any chest pain, no reported fever or chills. No reported vomiting. The patien t remains awake and responsive. PHYSICAL EXAMINATION: GENERAL: The patient is awake, alert. VITAL SIGNS: Temperature 98.2, pulse 101, respirations 22, blood pressure 103/70, O2 saturation 96%. HEENT: No eye discharge. appears normal. Oropharynx clear. NECK: Tracheostomy in place. No mass. CHEST: Diminished air entry at bases. CARDIOVASCULAR: S1, S2 normal, no murmur. ABDOMEN: Soft, nondistended. G-tube in place. EXTREMITIES: No edema. NEUROLOGIC: The patient is awake, alert, follows simple commands. Has quadriplegia. LABORATORY DATA: WBC 12.8, hemoglobin 8.8 after 2 units of PRBC transfusion. Sodium 139, potassium 4.4, BUN 19, creatinine 0.2, glucose 128. IMPRESSION: 1. Acute respiratory failure. Continue vent support. 2. Quadriplegia due to cervical myelopathy status post surgery. 3. Chronic pain syndrome, stable. 4. Seizure disorder. Continue current dose of Keppra. There is no breakthrough seizure. 5. Hypothyroidism and primary hypoparathyroidism. Continue treatment as per Dr. Magallanes. Dictated By: NOLA VIDAL MD AB/NTS Conf#: [id number] DID#: [id number] CC: NOLA VIDAL MD;*EndCC*
--- NOTE | 2018-11-05 14:08 | CONS ---
Consult Date/Type/Reason Admit Date/Time Oct 09, 2018 at 12:16 Initial Consult Date 10/12/18 Type of Consultation: Pulm/CCM Requesting Provider: NOLA VIDAL MD Date/Time of Note DATE: 11/05/18 TIME: 14:04 Subjective No events. Remains on the vent on high FiO2. Episodes of agitation. Objective Vitals Vital Signs Date Temp Pulse Resp B/P (MAP) Pulse Ox O2 O2 Flow FiO2 Time Delivery Rate 11/05/18 114 22 99 75 13:25 11/05/18 98.3 104/75 Mechanical 12:00 (85) Ventilator Intake and Output 11/04/18 11/04/18 11/05/18 1515:00 23:00 07:00 IntakeIntake Total 380 ml 420 ml 520 ml OutputOutput Total 320 ml 40 ml 1040 ml BalanceBalance 60 ml 380 ml -520 ml Exam HEENT: Neck supple; no JVD; no LAD; + trach site clean CVS: RRR, S1 and S2 CHEST: Coarse BS b/l ABD: Soft, NT, + BS EXT: No c/c; tr edema Results/Medications Result Diagram: 11/04/18 0400 11/04/18 0400 Results 24 hrs Laboratory Tests Test 11/04/18 20:12 11/05/18 02:38 11/05/18 08:16 Bedside Glucose 132 123 102 Medications Current Medications Acetaminophen (Tylenol Liquid) 650 mg Q4H PRN GTB MILD PAIN(1-3)OR ELEVATED TEMP Last administered on 10/16/18at 07:52; Admin Dose 650 MG; Start 10/09/18 at 14:00 Al Hydrox/Mg Hydrox/Simethicone (Mag-Al Plus) 15 ml Q6H PRN PO GASTROINTESTINAL UPSET Last administered on 10/17/18at 13:18; Admin Dose 15 ML; Start 10/09/18 at 14:00 Eye Lubricant (Artificial Tears Oph) 1 drop Q6H PRN BOTH EYES DRY EYES Last administered on 11/03/18at 09:33; Admin Dose 1 DROP; Start 10/09/18 at 14:00 Bisacodyl (Dulcolax Supp) 10 mg DAILY PRN [place] CONSTIPATION; Start 10/09/18 at 14:00 Clonidine (Catapres) 0.1 mg DAILY PRN GTB ELEVATED BLOOD PRESSURE; Start 10/09/18 at 14:00 Diltiazem HCl (Cardizem Iv) 5 mg Q4 PRN IV ELEVATED HEART RATE Last administered on 10/18/18 01:09; Admin Dose 5 MG; Start 10/09/18 at 14:00 Diphenhydramine HCl (Benadryl Liquid Cup) 25 mg Q6 PRN GTB ITCHING Last administered on 10/22/18 20:25; Admin Dose 25 MG; Start 10/09/18 at 14:00 Duloxetine HCl (Cymbalta) 30 mg DAILY PO Last administered on 11/05/18 08:18; Admin Dose 30 MG; Start 10/10/18 at 09:00 Gabapentin (Neurontin Liquid) 400 mg Q8 GTB Last administered on 11/05/18 05:33; Admin Dose 400 MG; Start 10/09/18 at 15:30 Hydralazine HCl (Apresoline) 10 mg Q4H PRN IV ELEVATED BLOOD PRESSURE; Start 10/09/18 at 14:00 Hydroxychloroquine Sulfate (Plaquenil) 200 mg BID PO Last administered on 11/05/18 08:18; Admin Dose 200 MG; Start 10/09/18 at 21:00 Diagnostic Test (Pha) (Accu-Chek) 1 ea 02 XX Last administered on 11/04/18 02:27; Admin Dose 1 EA; Start 10/10/18 at 02:00 Insulin Aspart (Novolog Insulin Pen) NOVOLOG *CUSTOM* ALGORITHM Q6H SC Last administered on 11/03/18 02:36; Admin Dose 1 UNIT; Start 10/09/18 at 14:00 Lactobacillus Acidophilus (Florajen3 Capsule) 1 each BID GTB Last administered on 11/05/18 08:18; Admin Dose 1 EACH; Start 10/09/18 at 21:00 Lansoprazole (Prevacid) 30 mg BID@,18 GTB Last administered on 11/05/18 05: 33; Admin Dose 30 MG; Start 10/09/18 at 18:00 Levetiracetam (Keppra Liquid) 500 mg BID GTB Last administered on 11/05/18 08:17; Admin Dose 500 MG; Start 10/09/18 at 21:00 Magnesium Oxide (Mag-Ox 400) 400 mg BID GTB Last administered on 11/05/18 08:17; Admin Dose 400 MG; Start 10/09/18 at 21:00 Metoclopramide HCl (Reglan) 10 mg TID IV Last administered on 11/05/18at 08:17; Admin Dose 10 MG; Start 10/09/18 at 21:00 Miconazole Nitrate (Miconazole 2% Cr) 1 applic BID TOP Last administered on at 08:19; Admin Dose 1 APPLIC; Start 10/09/18 at 21:00 Miconazole Nitrate (Miconazole 2% Cr) 1 applic Q12 PRN TOP rash; Start 10/09/18 at 14:00 Ondansetron HCl (Zofran Inj) 4 mg Q4H PRN IV NAUSEA AND/OR VOMITING Last administered on 10/19/18at 16:37; Admin Dose 4 MG; Start 10/09/18 at 14:00 Polyethylene Glycol (Miralax) 17 gm DAILY PRN GTB CONSTIPATION; Start 10/09/18 at 14:00 Senna (Senokot) 2 tab Q8 PRN PO CONSTIPATION; Start 10/09/18 at 14:00 Trimethoprim/ Sulfamethoxazole (Bactrim Susp) 40 ml DAILY GTB Last administered on 11/05/18at 08:17; Admin Dose 40 ML; Start 10/10/18 at 09:00 Zolpidem Tartrate (Ambien) 5 mg HS PRN PO INSOMNIA Last administered on 11/03/18at 01:16; Admin Dose 5 MG; Start 10/09/18 at 14:00 Miscellaneous Information 1 ea NOTE XX ; Start 10/09/18 at 15:00 Glucose (Glutose) 15 gm Q15M PRN PO DECREASED GLUCOSE; Start 10/09/18 at 15:00 Glucose (Glutose) 22.5 gm Q15M PRN PO DECREASED GLUCOSE; Start 10/09/18 at 15:00 Dextrose (D50w Syringe) 25 ml Q15M PRN IV DECREASED GLUCOSE; Start 10/09/18 at 15:00 Dextrose (D50w Syringe) 50 ml Q15M PRN IV DECREASED GLUCOSE; Start 10/09/18 at 15:00 Glucagon (Glucagen) 1 mg Q15M PRN IM DECREASED GLUCOSE; Start 10/09/18 at 15:00 Glucose (Glutose) 15 gm Q15M PRN BUCCAL DECREASED GLUCOSE; Start 10/09/18 at 15:00 Sodium Chloride 500 ml @ 500 mls/hr Q1H PRN IV BLOOD PRESSURE SUPPORT Last administered on 10/31/18 03:35; Admin Dose 500 MLS/HR; Start 10/09/18 at 19:30 Albuterol (Ventolin Hfa) 4 puff Q6H RESP THERAPY INH Last administered on 11/05/18 13:25; Admin Dose 4 PUFF; Start 10/10/18 at 02:00 Ipratropium [place] (Atrovent Hfa) 4 puff Q6H RESP THERAPY INH Last administered on 11/05/18 13:25; Admin Dose 4 PUFF; Start 10/10/18 at 02:00 Lorazepam (Ativan) 1 mg Q4H PRN GTB AGITATION/ANXIETY Last administered on 11/01/18 12:08; Admin Dose 1 MG; Start 10/14/18 at 13:00 Linagliptin (Tradjenta) 5 mg DAILY PO Last administered on 11/05/18 08:17; Admin Dose 5 MG; Start 10/16/18 at 10:30 Fentanyl (Duragesic 50 Mcg/Hr Patch) 1 patch Q72H TRANSDERM Last administered on 11/04/18 20:57; Admin Dose 1 PATCH; Start 10/17/18 at 20:30 Lorazepam (Ativan) 2 mg Q6H GTB Last administered on 11/05/18 08:17; Admin Dose 2 MG; Start 10/20/18 at 15:00 Quetiapine Fumarate (Seroquel) 100 mg BID GTB Last administered on 11/05/18 08:18; Admin Dose 100 MG; Start 10/21/18 at 21:00 Hydromorphone HCl (Dilaudid) 6 mg Q4H PRN PO MODERATE PAIN LEVEL 7-10 Last administered on 11/05/18 13:38; Admin Dose 6 MG; Start 10/21/18 at 22:00 Calcium Carbonate (Ca Carbonate) 1,250 mg QID GTB Last administered on 11/05/18 12:25; Admin Dose 1,250 MG; Start 10/24/18 at 13:00 Calcitriol (Rocaltrol) 1 mcg BID PO Last administered on 11/05/18 08:18; Admin Dose 1 MCG; Start 10/28/18 at 09:00 Metoprolol Tartrate (Lopressor) 5 mg Q4H PRN IV HR>110 Hold SBP<100 Last administered on 11/05/18 09:25; Admin Dose 5 MG; Start 10/28/18 at 12:30 Carvedilol (Coreg) 3.125 mg BID PO Last administered on 11/05/18 08:30; Admin Dose 3.125 MG; Start 11/01/18 at 21:00 Phenylephrine HCl 40 mg/Dextrose 250 ml @ 37.5 mls/hr TITRATE IV Last administered on 11/02/18 09:05; Admin Dose 11.25 MLS/HR; Start 11/01/18 at 13:30 IV Flush (NS 10 ml) 10 ml PRN PRN IV IV PROTOCOL; Start 11/01/18 at 16:30 Collagenase (Santyl) 1 applic DAILY TOP Last administered on 11/05/18 08:19; Admin Dose 1 APPLIC; Start 11/01/18 at 19:30 Norepinephrine 32 mg/Dextrose 250 ml @ 0.47 mls/hr TITRATE IV Last administered on 11/02/18 12:15; Admin Dose 0.47 MLS/HR; Start 11/02/18 at 11:30 Midodrine (Proamatine) 5 mg TID@,13,17 GTB Last administered on 11/05/18 12:26; Admin Dose 5 MG; Start 11/03/18 at 09:00 Guaifenesin (Robitussin Liquid Cup) 100 mg Q4H PRN PO COUGH Last administered on 11/03/18 15:20; Admin Dose 100 MG; Start 11/03/18 at 12:00 Hydrocortisone (Cortef) 20 mg QAM PEG Last administered on 11/05/18 08:18; Admin Dose 20 MG; Start 11/04/18 at 09:00 Hydrocortisone (Cortef) 20 mg AC DINNER PEG Last administered on 11/04/18 16:49; Admin Dose 20 MG; Start 11/04/18 at 17:05 Hydrocortisone (Cortef) 20 mg HS PEG Last administered on 11/04/18 20:14; Admin Dose 20 MG; Start 11/03/18 at 22:45 Assessment/Plan Assessment/Plan (Daily) IMP: 1. Acute on chronic hypoxemic respiratory failure with underlying acute respiratory distress syndrome. FiO2 increased to 60% with a PEEP of 8. 2. History of HSV esophagitis. 3. Chronic sepsis. 4. History of rheumatoid arthritis. 5. C-spine disease with functional quadriplegia. 6. Dysphagia with G-tube. RECS: 1. Continue mechanical, decrease FiO2 as tolerated 2. Continue tube feeding 3. Consider methadone via NG 4. Abx per ID 5. DNR noted Palliative care recommendations Critical care time 40 minute YOLETTE REYNOLDS MD Nov 05, 2018 14:08
--- NOTE | 2018-11-05 15:01 | CONS ---
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 -PTH <1 -continue calcitriol 1 mcg po BID -continue calcium carbonate 1250mg po QID -calcium corrected for low albumin in low normal range Adrenal insufficiency -continue hydrocortisone 20mg PO TID -BP stable -normal sodium and potassium Type 2 DM -FS in normal range -continue tradjenta 5 mg po daily -continue custom scale novolog sliding scale Q6H Consultation Date/Type/Reason Admit Date/Time Oct 09, 2018 at 12:16 Initial Consult Date 10/12/18 Requesting Provider: NOLA VIDAL MD Date/Time of Note DATE: 11/05/18 TIME: 14:49 24 HR Interval Summary Free Text/Dictation Patient seen and examined at bedside. He remains on ventilatory support. Exam/Review of Systems Exam Vitals Vital Signs Date Temp Pulse Resp B/P (MAP) Pulse Ox O2 O2 Flow FiO2 Time Delivery Rate 11/05/18 114 22 99 75 13:25 11/05/18 98.3 104/75 Mechanical 12:00 (85) Ventilator Intake and Output 11/04/18 11/04/18 11/05/18 1515:00 23:00 07:00 IntakeIntake Total 380 ml 420 ml 520 ml OutputOutput Total 320 ml 40 ml 1040 ml BalanceBalance 60 ml 380 ml -520 ml Exam General: Patient opens eyes spontaneously HENT: Normocephalic, atraumatic. trach intact Respiratory: Respirations are non-labored, Equal vented breath sounds bilaterally, Symmetrical chest wall expansion. Cardiovascular: S1, S2. No LE edema Gastrointestinal: Soft, PEG intact, Normal bowel sounds. Integumentary: Warm to touch. Neurologic: Opens eye spontaneously, unable to follow command Results Result Diagram: 11/04/18 0400 11/04/18 0400 Results 24hrs Laboratory Tests Test 11/04/18 20:12 11/05/18 02:38 11/05/18 08:16 Bedside Glucose 132 123 102 Medications Medication Current Medications Acetaminophen (Tylenol Liquid) 650 mg Q4H PRN GTB MILD PAIN(1-3)OR ELEVATED TEMP Last administered on 10/16/18at 07:52; Admin Dose 650 MG; Start 10/09/18 at 14:00 Al Hydrox/Mg Hydrox/Simethicone (Mag-Al Plus) 15 ml Q6H PRN PO GASTROINTESTINAL UPSET Last administered on 10/17/18 13:18; Admin Dose 15 ML; Start 10/09/18 at 14:00 Eye Lubricant (Artificial Tears Oph) 1 drop Q6H PRN BOTH EYES DRY EYES Last administered on 11/03/18 09:33; Admin Dose 1 DROP; Start 10/09/18 at 14:00 Bisacodyl (Dulcolax Supp) 10 mg DAILY PRN [place] CONSTIPATION; Start 10/09/18 at 14:00 Clonidine (Catapres) 0.1 mg DAILY PRN GTB ELEVATED BLOOD PRESSURE; Start 10/09/18 at 14:00 Diltiazem HCl (Cardizem Iv) 5 mg Q4 PRN IV ELEVATED HEART RATE Last administered on 10/18/18 01:09; Admin Dose 5 MG; Start 10/09/18 at 14:00 Diphenhydramine HCl (Benadryl Liquid Cup) 25 mg Q6 PRN GTB ITCHING Last administered on 10/22/18 20:25; Admin Dose 25 MG; Start 10/09/18 at 14:00 Duloxetine HCl (Cymbalta) 30 mg DAILY PO Last administered on 11/05/18 08:18; Admin Dose 30 MG; Start 10/10/18 at 09:00 Gabapentin (Neurontin Liquid) 400 mg Q8 GTB Last administered on 11/05/18 05:33; Admin Dose 400 MG; Start 10/09/18 at 15:30 Hydralazine HCl (Apresoline) 10 mg Q4H PRN IV ELEVATED BLOOD PRESSURE; Start 10/09/18 at 14:00 Hydroxychloroquine Sulfate (Plaquenil) 200 mg BID PO Last administered on 11/05/18 08:18; Admin Dose 200 MG; Start 10/09/18 at 21:00 Diagnostic Test (Pha) (Accu-Chek) 1 ea 02 XX Last administered on 11/04/18 02:27; Admin Dose 1 EA; Start 10/10/18 at 02:00 Insulin Aspart (Novolog Insulin Pen) NOVOLOG *CUSTOM* ALGORITHM Q6H SC Last administered on 11/03/18 02:36; Admin Dose 1 UNIT; Start 10/09/18 at 14:00 Lactobacillus Acidophilus (Florajen3 Capsule) 1 each BID GTB Last administered on 11/05/18 08:18; Admin Dose 1 EACH; Start 10/09/18 at 21:00 Lansoprazole (Prevacid) 30 mg BID@,18 GTB Last administered on 11/05/18 05:33; Admin Dose 30 MG; Start 10/09/18 at 18:00 Levetiracetam (Keppra Liquid) 500 mg BID GTB Last administered on 11/05/18 08:17; Admin Dose 500 MG; Start 10/09/18 at 21:00 Magnesium Oxide (Mag-Ox 400) 400 mg BID GTB Last administered on 11/05/18 08:17; Admin Dose 400 MG; Start 10/09/18 at 21:00 Metoclopramide HCl (Reglan) 10 mg TID IV Last administered on 11/05/18 08:17; Admin Dose 10 MG; Start 10/09/18 at 21:00 Miconazole Nitrate (Miconazole 2% Cr) 1 applic BID TOP Last administered on 11/05/18 08:19; Admin Dose 1 APPLIC; Start 10/09/18 at 21:00 Miconazole Nitrate (Miconazole 2% Cr) 1 applic Q12 PRN TOP rash; Start 10/09/18 at 14:00 Ondansetron HCl (Zofran Inj) 4 mg Q4H PRN IV NAUSEA AND/OR VOMITING Last administered on 10/19/18 16:37; Admin Dose 4 MG; Start 10/09/18 at 14:00 Polyethylene Glycol (Miralax) 17 gm DAILY PRN GTB CONSTIPATION; Start 10/09/18 at 14:00 Senna (Senokot) 2 tab Q8 PRN PO CONSTIPATION; Start 10/09/18 at 14:00 Trimethoprim/ Sulfamethoxazole (Bactrim Susp) 40 ml DAILY GTB Last administered on 11/05/18 08:17; Admin Dose 40 ML; Start 10/10/18 at 09:00 Zolpidem Tartrate (Ambien) 5 mg HS PRN PO INSOMNIA Last administered on 11/03/18 01:16; Admin Dose 5 MG; Start 10/09/18 at 14:00 Miscellaneous Information 1 ea NOTE XX ; Start 10/09/18 at 15:00 Glucose (Glutose) 15 gm Q15M PRN PO DECREASED GLUCOSE; Start 10/09/18 at 15:00 Glucose (Glutose) 22.5 gm Q15M PRN PO DECREASED GLUCOSE; Start 10/09/18 at 15:00 Dextrose (D50w Syringe) 25 ml Q15M PRN IV DECREASED GLUCOSE; Start 10/09/18 at 15:00 Dextrose (D50w Syringe) 50 ml Q15M PRN IV DECREASED GLUCOSE; Start 10/09/18 at 15:00 Glucagon (Glucagen) 1 mg Q15M PRN IM DECREASED GLUCOSE; Start 10/09/18 at 15:00 Glucose (Glutose) 15 gm Q15M PRN BUCCAL DECREASED GLUCOSE; Start 10/09/18 at 1 5:00 Sodium Chloride 500 ml @ 500 mls/hr Q1H PRN IV BLOOD PRESSURE SUPPORT Last administered on 10/31/18 03:35; Admin Dose 500 MLS/HR; Start 10/09/18 at 19:30 Albuterol (Ventolin Hfa) 4 puff Q6H RESP THERAPY INH Last administered on 11/05/18 13:25; Admin Dose 4 PUFF; Start 10/10/18 at 02:00 Ipratropium [place] (Atrovent Hfa) 4 puff Q6H RESP THERAPY INH Last administered on 11/05/18 13:25; Admin Dose 4 PUFF; Start 10/10/18 at 02:00 Lorazepam (Ativan) 1 mg Q4H PRN GTB AGITATION/ANXIETY Last administered on 11/01/18 12:08; Admin Dose 1 MG; Start 10/14/18 at 13:00 Linagliptin (Tradjenta) 5 mg DAILY PO Last administered on 11/05/18 08:17; Admin Dose 5 MG; Start 10/16/18 at 10:30 Fentanyl (Duragesic 50 Mcg/Hr Patch) 1 patch Q72H TRANSDERM Last administered on 11/04/18 20:57; Admin Dose 1 PATCH; Start 10/17/18 at 20:30 Lorazepam (Ativan) 2 mg Q6H GTB Last administered on 11/05/18 08:17; Admin Dose 2 MG; Start 10/20/18 at 15:00 Quetiapine Fumarate (Seroquel) 100 mg BID GTB Last administered on 11/05/18 08:18; Admin Dose 100 MG; Start 10/21/18 at 21:00 Hydromorphone HCl (Dilaudid) 6 mg Q4H PRN PO MODERATE PAIN LEVEL 7-10 Last administered on 11/05/18 13:38; Admin Dose 6 MG; Start 10/21/18 at 22:00 Calcium Carbonate (Ca Carbonate) 1,250 mg QID GTB Last administered on 9at 12:25; Admin Dose 1,250 MG; Start 10/24/18 at 13:00 Calcitriol (Rocaltrol) 1 mcg BID PO Last administered on 11/05/18 08:18; Admin Dose 1 MCG; Start 10/28/18 at 09:00 Metoprolol Tartrate (Lopressor) 5 mg Q4H PRN IV HR>110 Hold SBP<100 Last administered on 11/05/18 09:25; Admin Dose 5 MG; Start 10/28/18 at 12:30 Carvedilol (Coreg) 3.125 mg BID PO Last administered on 11/05/18 08:30; Admin Dose 3.125 MG; Start 11/01/18 at 21:00 Phenylephrine HCl 40 mg/Dextrose 250 ml @ 37.5 mls/hr TITRATE IV Last administered on 11/02/18 09:05; Admin Dose 11.25 MLS/HR; Start 11/01/18 at 13:30 IV Flush (NS 10 ml) 10 ml PRN PRN IV IV PROTOCOL; Start 11/01/18 at 16:30 Collagenase (Santyl) 1 applic DAILY TOP Last administered on 11/05/18 08:19; Admin Dose 1 APPLIC; Start 11/01/18 at 19:30 Norepinephrine 32 mg/Dextrose 250 ml @ 0.47 mls/hr TITRATE IV Last administered on 11/02/18 12:15; Admin Dose 0.47 MLS/HR; Start 11/02/18 at 11:30 Midodrine (Proamatine) 5 mg TID@09,13,17 GTB Last administered on 11/05/18 12:26; Admin Dose 5 MG; Start 11/03/18 at 09:00 Guaifenesin (Robitussin Liquid Cup) 100 mg Q4H PRN PO COUGH Last administered on 3/21/19at 15:20; Admin Dose 100 MG; Start 11/03/18 at 12:00 Hydrocortisone (Cortef) 20 mg QAM PEG Last administered on 11/05/18at 08:18; Admin Dose 20 MG; Start 11/04/18 at 09:00 Hydrocortisone (Cortef) 20 mg AC DINNER PEG Last administered on 11/04/18at 16:49; Admin Dose 20 MG; Start 11/04/18 at 17:05 Hydrocortisone (Cortef) 20 mg HS PEG Last administered on 11/04/18at 20:14; Admin Dose 20 MG; Start 11/03/18 at 22:45 AKBAR PIRECE MD Nov 05, 2018 14:59
--- NOTE | 2018-11-05 16:44 | CONS ---
[facility] HCIS Consult Follow-up Patient Name: Armand Quiroga Unit Number: [id number] Date of : 1965 Patient Status: Admitted Inpatient Attending Doctor: Nola Vidal MD Edit: NEMO NEVAREZ M.D. on 11/06/18 @ 01:45 Roque: I discussed the management with [employer] Luis Alberto and agree with her Assessment/Plan Assessment/Plan Hospital Course (Demo Recall) # sepsis, respiratory - recurrent sepsis on 10/08/2018 due to aspiration pneumonia, HCAP, improved - possible aspiration pneumonia, recurrent pneumonia due to Citrobacter, improved - acute on chronic hypoxic and hypercarbic respiratory failure - persistent leukocytosis likely due to steroid margination - h/o tracheostomy on 08/26/2018 - h/o "Increased mild left apical pneumothorax" per CXR on 09/19/2018; no pneumothorax mentioned on subsequent CXR - h/o pneumomediastinum - h/o VAT on 08/11/2018 - h/o asthma/COPD exacerbation - h/o acute tracheobronchitis - h/o MAC infection but CT chest did not demonstrate features suggestive of this per chart review - On this admission AFB smear x3 have been negative (10/21/18 0600, 10/21/18 1530, and 10/22/18 0040), pneumocystis jiroveci 10/18/18 not detected. Coccioides screen negative. TB Quant Gold neg. - h/o HCAP due to citrobacter, based on resp culture on 09/13/2018 - h/o aspergillus growing out of resp culture per (pulm note by Dr. Lopez) on 07/25/2018 - h/o elevated 1,3 [id number] level = 232 on 08/06/2018 - h/o MSSA septicemia # GI - diarrhea, C diff on 10/09/2018 was negative - h/o HSV esophagitis, took acyclovir x21 days from 08/26/2018 - h/o EGD, esophageal biopsy showed esophageal squamous mucosa showing acute inflammation, granulation tissue, and ulceration consistent with ulcerative esophagitis, rare multinucleated cells with morphology suggestive of vial cytopathic changes, No cardiac mucosa, intestinal metaplasia, dysplasia, or malignancy defined - GERD - PUD # renal/ - Hypokalemia, recurrent - CKD 2 - BPH # cardiac - tachycardia, persistent - Acute on chronic anemia requiring PRBC - HTN - HLD # endo - T2DM - Hgb A1c 7.2% - secondary adrenal insufficiency; steroid dependent - Hypoparathyroidism - Hypercalcemia - Pamidronate was ordered # neuro - toxic metabolic encephalopathy - Cervical myopathy - Severe cervical spinal cord stenosis with cord compression from C3-C5, s/p laminectomy in ~03/2018 - Chronic pain syndrome - Functional quadriplegia - Seizure d/o - Anxiety # other chronic conditions - RA with chronic steroid dependence - Immunocompromised status - Fibromyalgia - DDD - H/o multiple rib fracture - Pt completed: meropenem (09/25/2018-10/02/2018), vancomycin (09/25/18-09/28/18), pip/tazo (10/09/2018-10/15/2018) - DNR status Recommendations: - Pending: AFB culture x3 to r/o mycobacterium avium intracellulaire (AFB smear x3 have resulted negative) - Continue Bactrim for pneumocystis PPX - Continue to monitor off other systemic antibiotic Management d/w patient's at bedside and with Dr. Nevarez Thank you Critical care time spent: 45 minutes Consultation Date/Type/Reason Admit Date/Time Oct 09, 2018 at 12:16 Initial Consult Date 10/12/18 Type of Consult ID Requesting Provider: NOLA VIDAL MD Date/Time of Note DATE: 11/05/18 TIME: 16:43 24 HR Interval Summary Free Text/Dictation D/w patient's at bedside. Patient lethargic, ros limited. Remains afebrile, wbc today 12.8. Exam/Review of Systems Exam Vitals Vital Signs Date Temp Pulse Resp B/P (MAP) Pulse Ox O2 O2 Flow FiO2 Time Delivery Rate 11/05/18 100 16:28 11/05/18 23 108/79 95 Mechanical 16:00 (89) Ventilator 11/05/18 75 15:28 11/05/18 98.3 12:00 Intake and Output 11/04/18 11/04/18 11/05/18 1515:00 23:00 07:00 IntakeIntake Total 380 ml 420 ml 520 ml OutputOutput Total 320 ml 40 ml 1040 ml BalanceBalance 60 ml 380 ml -520 ml Allergies Coded Allergies No Known Allergy (Unverified11/03/18) Exam Constitutional: non-verbal, frail, other (lethargic, opens eyes and then drifts back to sleep) Head: normocephalic, atraumatic Eyes: nl conjunctiva, nl lids, nl sclera ENMT: nl external ears & nose, nl nasal mucosa & septum, mucosa pink and moist (OP exam limited) Neck: supple, non-tender, other (trach site is midline, site c/d/i, on vent, fio2 75%) Respiratory: normal air movement, diminished breath sounds Cardiovascular: regular rate and rhythm, nl pulses, other (RUE PICC site is c/d/i) Gastrointestinal: soft, non-tender, other (GT site is c/d/i, rectal tube in place with liquid stool draining) Male Genitourinary: other (condom catheter in place) Musculoskeletal: nl extremities to inspection Extremities: normal pulses Neurological: lethargic, other (lethargic currently) Skin: nl turgor, other (stage II coccygeal ulcer); No rash or lesions Results Result Diagram: 11/04/18 0400 11/04/18 0400 Results 24hrs Laboratory Tests Test 11/04/18 20:12 11/05/18 02:38 11/05/18 08:16 11/05/18 14:33 Bedside Glucose 132 123 102 130 Medications Medication Current Medications Acetaminophen (Tylenol Liquid) 650 mg Q4H PRN GTB MILD PAIN(1-3)OR ELEVATED TEMP Last administered on 10/16/18at 07:52; Admin Dose 650 MG; Start 10/09/18 at 14:00 Al Hydrox/Mg Hydrox/Simethicone (Mag-Al Plus) 15 ml Q6H PRN PO GASTROINTESTINAL UPSET Last administered on 10/17/18at 13:18; Admin Dose 15 ML; Start 10/09/18 at 14:00 Eye Lubricant (Artificial Tears Oph) 1 drop Q6H PRN BOTH EYES DRY EYES Last administered on 11/03/18 09:33; Admin Dose 1 DROP; Start 10/09/18 at 14:00 Bisacodyl (Dulcolax Supp) 10 mg DAILY PRN [place] CONSTIPATION; Start 10/09/18 at 14:00 Clonidine (Catapres) 0.1 mg DAILY PRN GTB ELEVATED BLOOD PRESSURE; Start 10/09/18 at 14:00 Diltiazem HCl (Cardizem Iv) 5 mg Q4 PRN IV ELEVATED HEART RATE Last administered on 10/18/18 01:09; Admin Dose 5 MG; Start 10/09/18 at 14:00 Diphenhydramine HCl (Benadryl Liquid Cup) 25 mg Q6 PRN GTB ITCHING Last administered on 10/22/18 20:25; Admin Dose 25 MG; Start 10/09/18 at 14:00 Duloxetine HCl (Cymbalta) 30 mg DAILY PO Last administered on 11/05/18 08:18; Admin Dose 30 MG; Start 10/10/18 at 09:00 Gabapentin (Neurontin Liquid) 400 mg Q8 GTB Last administered on 11/05/18 15:00; Admin Dose 400 MG; Start 10/09/18 at 15:30 Hydralazine HCl (Apresoline) 10 mg Q4H PRN IV ELEVATED BLOOD PRESSURE; Start 10/09/18 at 14:00 Hydroxychloroquine Sulfate (Plaquenil) 200 mg BID PO Last administered on 08:18; Admin Dose 200 MG; Start 10/09/18 at 21:00 Diagnostic Test (Pha) (Accu-Chek) 1 ea 02 XX Last administered on 11/04/18 02:27; Admin Dose 1 EA; Start 10/10/18 at 02:00 Insulin Aspart (Novolog Insulin Pen) NOVOLOG *CUSTOM* ALGORITHM Q6H SC Last administered on 11/03/18 02:36; Admin Dose 1 UNIT; Start 10/09/18 at 14:00 Lactobacillus Acidophilus (Florajen3 Capsule) 1 each BID GTB Last administered on 11/05/18 08:18; Admin Dose 1 EACH; Start 10/09/18 at 21:00 Lansoprazole (Prevacid) 30 mg BID@06,18 GTB Last administered on 11/05/18 05:33; Admin Dose 30 MG; Start 10/09/18 at 18:00 Levetiracetam (Keppra Liquid) 500 mg BID GTB Last administered on 11/05/18 08:17; Admin Dose 500 MG; Start 10/09/18 at 21:00 Magnesium Oxide (Mag-Ox 400) 400 mg BID GTB Last administered on 11/05/18 08:17; Admin Dose 400 MG; Start 10/09/18 at 21:00 Metoclopramide HCl (Reglan) 10 mg TID IV Last administered on 11/05/18 08:17; Admin Dose 10 MG; Start 10/09/18 at 21:00 Miconazole Nitrate (Miconazole 2% Cr) 1 applic BID TOP Last administered on 11/05/18 08:19; Admin Dose 1 APPLIC; Start 10/09/18 at 21:00 Miconazole Nitrate (Miconazole 2% Cr) 1 applic Q12 PRN TOP rash; Start 10/09/18 at 14:00 Ondansetron HCl (Zofran Inj) 4 mg Q4H PRN IV NAUSEA AND/OR VOMITING Last administered on 10/19/18at 16:37; Admin Dose 4 MG; Start 10/09/18 at 14:00 Polyethylene Glycol (Miralax) 17 gm DAILY PRN GTB CONSTIPATION; Start 10/09/18 at 14:00 Senna (Senokot) 2 tab Q8 PRN PO CONSTIPATION; Start 10/09/18 at 14:00 Trimethoprim/ Sulfamethoxazole (Bactrim Susp) 40 ml DAILY GTB Last administered on 11/05/18 08:17; Admin Dose 40 ML; Start 10/10/18 at 09:00 Zolpidem Tartrate (Ambien) 5 mg HS PRN PO INSOMNIA Last administered on 11/03/18 01:16; Admin Dose 5 MG; Start 10/09/18 at 14:00 Miscellaneous Information 1 ea NOTE XX ; Start 10/09/18 at 15:00 Glucose (Glutose) 15 gm Q15M PRN PO DECREASED GLUCOSE; Start 10/09/18 at 15:00 Glucose (Glutose) 22.5 gm Q15M PRN PO DECREASED GLUCOSE; Start 10/09/18 at 15:00 Dextrose (D50w Syringe) 25 ml Q15M PRN IV DECREASED GLUCOSE; Start 10/09/18 at 15:00 Dextrose (D50w Syringe) 50 ml Q15M PRN IV DECREASED GLUCOSE; Start 10/09/18 at 15:00 Glucagon (Glucagen) 1 mg Q15M PRN IM DECREASED GLUCOSE; Start 10/09/18 at 15:00 Glucose (Glutose) 15 gm Q15M PRN BUCCAL DECREASED GLUCOSE; Start 10/09/18 at 15:00 Sodium Chloride 500 ml @ 500 mls/hr Q1H PRN IV BLOOD PRESSURE SUPPORT Last administered on 10/31/18 03:35; Admin Dose 500 MLS/HR; Start 10/09/18 at 19:30 Albuterol (Ventolin Hfa) 4 puff Q6H RESP THERAPY INH Last administered on 11/05/18 13:25; Admin Dose 4 PUFF; Start 10/10/18 at 02:00 Ipratropium [place] (Atrovent Hfa) 4 puff Q6H RESP THERAPY INH Last administered on 11/05/18 13:25; Admin Dose 4 PUFF; Start 10/10/18 at 02:00 Lorazepam (Ativan) 1 mg Q4H PRN GTB AGITATION/ANXIETY Last administered on 11/01/18 12:08; Admin Dose 1 MG; Start 10/14/18 at 13:00 Linagliptin (Tradjenta) 5 mg DAILY PO Last administered on 11/05/18 08:17; Admin Dose 5 MG; Start 10/16/18 at 10:30 Fentanyl (Duragesic 50 Mcg/Hr Patch) 1 patch Q72H TRANSDERM Last administered on 11/04/18 20:57; Admin Dose 1 PATCH; Start 10/17/18 at 20:30 Lorazepam (Ativan) 2 mg Q6H GTB Last administered on 11/05/18 14:59; Admin Dose 2 MG; Start 10/20/18 at 15:00 Quetiapine Fumarate (Seroquel) 100 mg BID GTB Last administered on 11/05/18 08:18; Admin Dose 100 MG; Start 10/21/18 at 21:00 Hydromorphone HCl (Dilaudid) 6 mg Q4H PRN PO MODERATE PAIN LEVEL 7-10 Last ad ministered on 11/05/18 13:38; Admin Dose 6 MG; Start 10/21/18 at 22:00 Calcium Carbonate (Ca Carbonate) 1,250 mg QID GTB Last administered on 11/05/18 12:25; Admin Dose 1,250 MG; Start 10/24/18 at 13:00 Calcitriol (Rocaltrol) 1 mcg BID PO Last administered on 11/05/18 08:18; Admin Dose 1 MCG; Start 10/28/18 at 09:00 Metoprolol Tartrate (Lopressor) 5 mg Q4H PRN IV HR>110 Hold SBP<100 Last admi nistered on 11/05/18 09:25; Admin Dose 5 MG; Start 10/28/18 at 12:30 Carvedilol (Coreg) 3.125 mg BID PO Last administered on 11/05/18 08:30; Admin Dose 3.125 MG; Start 11/01/18 at 21:00 Phenylephrine HCl 40 mg/Dextrose 250 ml @ 37.5 mls/hr TITRATE IV Last administered on 11/02/18 09:05; Admin Dose 11.25 MLS/HR; Start 11/01/18 at 13:30 IV Flush (NS 10 ml) 10 ml PRN PRN IV IV PROTOCOL; Start 11/01/18 at 16:30 Collagenase (Santyl) 1 applic DAILY TOP Last administered on 11/05/18 08:19; Admin Dose 1 APPLIC; Start 11/01/18 at 19:30 Norepinephrine 32 mg/Dextrose 250 ml @ 0.47 mls/hr TITRATE IV Last administered on 11/02/18 12:15; Admin Dose 0.47 MLS/HR; Start 11/02/18 at 11:30 Midodrine (Proamatine) 5 mg TID@,13,17 GTB Last administered on 11/05/18 12:26; Admin Dose 5 MG; Start 11/03/18 at 09:00 Guaifenesin (Robitussin Liquid Cup) 100 mg Q4H PRN PO COUGH Last administered on 11/03/18 15:20; Admin Dose 100 MG; Start 11/03/18 at 12:00 Hydrocortisone (Cortef) 20 mg QAM PEG Last administered on 11/05/18 08:18; Admin Dose 20 MG; Start 11/04/18 at 09:00 Hydrocortisone (Cortef) 20 mg AC DINNER PEG Last administered on 11/04/18 16:49; Admin Dose 20 MG; Start 11/04/18 at 17:05 Hydrocortisone (Cortef) 20 mg HS PEG Last administered on 11/04/18at 20:14; Admin Dose 20 MG; Start 11/03/18 at 22:45 STEVE MOSCOSO NP Nov 05, 2018 16:44
[2018-11-05] MEDS: GUAIFENESIN 20 MG/ML 5ML CUP PO PRN (20:31)
[2018-11-05] MEDS: LORAZEPAM 1 MG TAB GTB PRN (20:35)
[2018-11-05] MEDS: ACETAMINOPHEN 650MG/20.3ML CUP GTB PRN (23:55)
[2018-11-06] VITALS (47 sets, daily range): BP systolic 92–150; BP diastolic 66–119; PULSE 100–132; RESP 10–36
[2018-11-06] MEDS: HYDROmorphONE 2 MG TAB PO PRN ×5 (00:42→22:30)
[2018-11-06] MEDS: METOPROLOL 5 MG INJ IV PRN ×2 (00:43→16:17)
[2018-11-06] MEDS: IPRATROPIUM (HFA) 12.9 GM INHALER INH SCH ×4 (01:38→19:33)
[2018-11-06] MEDS: ALBUTEROL HFA 8 GM INHALER INH SCH ×4 (01:38→19:33)
[2018-11-06] MEDS: ACCU-CHEK XX SCH (02:00)
[2018-11-06] MEDS: INSULIN ASPART [NOVOLOG] 3 ML PEN SC SCH ×4 (02:00→20:00)
[2018-11-06] MEDS: LORAZEPAM 1 MG TAB GTB SCH ×4 (03:41→20:59)
[2018-11-06] MEDS: LANSOPRAZOLE 30 MG CAP GTB SCH ×2 (06:14→17:16)
[2018-11-06] MEDS: GABAPENTIN (50 MG/ML PO SYG) GTB SCH ×3 (06:17→21:15)
[2018-11-06] MEDS: MIDODRINE 5 MG TAB GTB SCH ×3 (09:00→17:00)
[2018-11-06] MEDS: METOCLOPRAMIDE 10 MG INJ IV SCH ×3 (09:19→20:58)
[2018-11-06] MEDS: TRIMETHOPRIM/SULFAMETHOX (PO SYG) GTB SCH (09:23)
--- NOTE | 2018-11-06 09:23 | PN ---
DATE: 11/06/2018 SUBJECTIVE: The patient remains stable, no events overnight. OBJECTIVE: VITAL SIGNS: Blood pressure is 143/94, respirations 24, pulse 116, temperature 98.6. HEENT: Head is normocephalic. NECK: Supple. HEART: Regular rate. LUNGS: Show diminished breath sounds at the base. ABDOMEN: Soft, nontender to palpation without rebound or guarding. EXTREMITIES: Negative for clubbing, cyanosis, no edema. DERMATOLOGIC: No rashes. MUSCULOSKELETAL: No joint effusions. NEUROLOGIC: No change in exam. MEDICATIONS: Reviewed. LABORATORY DATA: Has been reviewed. ASSESSMENT AND PLAN: 1. Nonoliguric acute kidney injury with previously normal baseline creatinine. Etiology of STAN is s econdary to hemodynamics. Renal function has improved. Continue to monitor. 2. Volume overload, improved. Give intermittent diuretic therapy as needed. 3. Ventilator dependent respiratory failure. Vent settings and ABG was reviewed. Continue to monit or. 4. Adrenal insufficiency. Continue Cortef. 5. Hypertension. We will monitor closely. We will place parameters on Midodrine. 6. Dysphagia, status post PEG. Continue tube feeding. 7. Seizure disorder. Continue medical management. 8. Anxiety disorder. 9. Hypomagnesemia. Continue to monitor. 10. Mineral bone disorder, monitor calcium and phosphorus levels. 11. Status post shock. Dictated By: UNA ROY DO NR/NTS Conf#: [id number] DID#: [id number] CC: CAMELIA VALENTINE MD; NOLA VIDAL MD;*EndCC*
[2018-11-06] MEDS: CA CARBONATE (250 MG/ML) 5ML CUP GTB SCH ×4 (09:24→20:59)
[2018-11-06] MEDS: L ACIDOPHIL/B LACTIS/B LONGUM CAPSULE GTB SCH ×2 (09:24→21:15)
[2018-11-06] MEDS: MAGNESIUM OXIDE 400 MG TAB GTB SCH ×2 (09:25→20:59)
[2018-11-06] MEDS: LEVETIRACETAM (100 MG/ML) 5ML CUP GTB SCH ×2 (09:25→20:58)
[2018-11-06] MEDS: QUETIAPINE 100 MG TAB GTB SCH ×2 (09:26→20:58)
[2018-11-06] MEDS: HYDROCORTISONE 20 MG TAB PEG SCH ×3 (09:27→20:59)
[2018-11-06] MEDS: CALCITRIOL 0.5 MCG CAPSULE PO SCH (09:28)
[2018-11-06] MEDS: HYDROXYCHLOROQUINE 200 MG TAB PO SCH ×2 (09:28→20:59)
[2018-11-06] MEDS: DULOXETINE 30 MG CAP DR PO SCH (09:28)
[2018-11-06] MEDS: BALSAM PERU/CASTOR OIL 60 GM TUBE TOP SCH ×2 (09:29→21:00)
[2018-11-06] MEDS: MICONAZOLE 2% 30 GM CR TOP SCH ×2 (09:29→21:01)
[2018-11-06] MEDS: LINAGLIPTIN 5 MG TABLET PO SCH (09:29)
[2018-11-06] MEDS: COLLAGENASE 5 GM (UD JAR) TOP SCH (09:30)
--- NOTE | 2018-11-06 11:34 | CONS ---
Assessment/Plan Cardiology Heart Failure Type: Acute on Chronic Heart Failure Type: Systolic Assessment/Plan Hospital Course (Demo Recall) IMPRESSION: 1. Tachycardia- S tach. Ongoimg Likley due to anxiety/infection/cardiomyopathy, multifactorial 2. Hypotension-now off pressors with HTN but labile 3. Abnormal electrocardiogram at baseline. 4. Chronic respiratory failure, status post tracheostomy.-weaning vent support 5. Dysphagia, status post G-tube. 6. Quadriplegia. 7. Renal insufficiency, on steroids. 8. Chronic obstructive pulmonary disease. 9. Rheumatoid arthritis. 10. Chronic kidney disease. 11. Diabetes mellitus. 12.Adrenal insufficiency 14. cardiomyopathy-EF 35-40% by echo this admit Recc -ICU -Ongoing Vent support with inability to wean from High percentage FI02 -Continue abx's and f/u cx data -continue steroids -Follow volume status -continue midodrine BP support as necessary -Continue coreg as tolerated -dose digoxin IVP -Now DNR Consultation Date/Type/Reason Admit Date/Time Oct 09, 2018 at 12:16 Initial Consult Date 10/09/18 Type of Consult Cardiology Reason for Consultation tachycardia Requesting Provider: NOLA VIDAL MD Date/Time of Note DATE: 11/06/18 TIME: 11:32 Exam/Review of Systems Vital Signs Vitals Vital Signs Date Temp Pulse Resp B/P (MAP) Pulse Ox O2 O2 Flow FiO2 Time Delivery Rate 11/06/18 115 09:05 11/06/18 99.1 08:48 11/06/18 100 65 08:07 11/06/18 19 126/93 08:00 (104) 11/06/18 Mechanical 06:00 Ventilator Intake and Output 11/05/18 11/05/18 11/06/18 1515:00 23:00 07:00 IntakeIntake Total 470 ml 290 ml 370 ml OutputOutput Total 445 ml 80 ml 1350 ml BalanceBalance 25 ml 210 ml -980 ml Exam Exam Review of Systems: CONSTITUTIONAL: No fevers, chills. PULMONARY: trached CARDIOVASCULAR: No chest pain/palpitations GASTROINTESTINAL: No nausea/vomiting. GENITOURINARY: No hematuria/dysuria. MUSCULOSKELETAL: No myagias/arthalgias. PSYCHIATRIC: The patient denies depression. NEUROLOGIC: No weakness Constitutional: alert Psych: no complaints Head: normocephalic ENMT: mucosa pink and moist Neck: jvd (9 cm water), other (trached) Respiratory: diminished breath sounds (at bases/B) Cardiovascular: regular rate and rhythm Gastrointestinal: soft, non-tender Musculoskeletal: muscle tone (normal) Extremities: edema (none) Labs Result Diagram: 11/06/18 0450 11/06/18 0450 Results 24hrs Laboratory Tests Test 11/05/18 14:33 11/05/18 20:51 11/06/18 01:37 11/06/18 04:50 Bedside Glucose 130 131 144 White Blood Count 13.8 H Red Blood Count 3.23 L Hemoglobin 9.4 L Hematocrit 31.1 L Mean Corpuscular 96.3 Volume Mean Corpuscular 29.1 Hemoglobin Mean Corpuscular 30.2 L Hemoglobin Concen t Red Cell 16.5 H Distribution Width Platelet Count 173 Mean Platelet 11.2 H Volume Immature 1.000 H Granulocytes % Neutrophils % 77.4 H Lymphocytes % 4.5 L Monocytes % 8.7 Eosinophils % 8.0 H Basophils % 0.4 Nucleated Red 0.0 Blood Cells % Immature 0.140 H Granulocytes # Neutrophils # 10.7 H Lymphocytes # 0.6 L Monocytes # 1.2 H Eosinophils # 1.1 H Basophils # 0.1 Nucleated Red 0.0 Blood Cells # Sodium Level 139 Potassium Level 4.3 Chloride Level 98 Carbon Dioxide 39 H Level Anion Gap 2 L Blood Urea 20 Nitrogen Creatinine 0.23 L Est Glomerular > 60 Filtrat Rate mL/min Glucose Level 114 Lactic Acid Level 1.3 Calcium Level 6.9 L Test 11/06/18 05:00 11/06/18 08:27 Blood Gas Blood arterial Specimen Source Arterial Blood 11/06/2018 4:40:4 Date Drawn 0 AM Arterial Blood pH 7.362 (Temp corrected) Arterial Blood 72.2 H pCO2 (Temp correct) Arterial Blood 89.5 pO2 (Temp corrected) Arterial Blood 40.1 *H HCO3 Arterial Blood 12.3 H Base Excess Arterial Blood 96.3 Oxygen Saturation Chandler Test ACCEPTAB Arterial Blood Right Radial Gas Puncture Site Arterial 1.2 Blood Carboxyhemo globin Arterial Blood 0.5 Methemoglobin Blood Gas A-a O2 332.0 H Differential Oxyhemoglobin 94.7 Percent Blood Gas 37.0 Temperature Blood Gas 20.0 Respiration Rate Blood Gas Actual 23 Respiration Rate Blood Gas VENT - PC Modality FiO2 70.0 Blood Gas High 28.0 PEEP Setting Blood Gas Low 8.0 PEEP Setting Blood Gas GRACIE KELLER Critical Value Read Back Blood Gas RYAN Notified Whom Blood Gas 11/06/2018 5:17:5 Notified Time 0 AM Bedside Glucose 93 Medications Medications Current Medications Acetaminophen (Tylenol Liquid) 650 mg Q4H PRN GTB MILD PAIN(1-3)OR ELEVATED TEMP Last administered on 11/05/18 23:55; Admin Dose 650 MG; Start 10/09/18 at 14:00 Al Hydrox/Mg Hydrox/Simethicone (Mag-Al Plus) 15 ml Q6H PRN PO GASTROINTESTINAL UPSET Last administered on 10/17/18 13:18; Admin Dose 15 ML; Start 10/09/18 at 14:00 Eye Lubricant (Artificial Tears Oph) 1 drop Q6H PRN BOTH EYES DRY EYES Last administered on 11/03/18 09:33; Admin Dose 1 DROP; Start 10/09/18 at 14:00 Bisacodyl (Dulcolax Supp) 10 mg DAILY PRN [place] CONSTIPATION; Start 10/09/18 at 14:00 Clonidine (Catapres) 0.1 mg DAILY PRN GTB ELEVATED BLOOD PRESSURE; Start 10/09/18 at 14:00 Diltiazem HCl (Cardizem Iv) 5 mg Q4 PRN IV ELEVATED HEART RATE Last administered on 10/18/18 01:09; Admin Dose 5 MG; Start 10/09/18 at 14:00 Diphenhydramine HCl (Benadryl Liquid Cup) 25 mg Q6 PRN GTB ITCHING Last administered on 10/22/18 20:25; Admin Dose 25 MG; Start 10/09/18 at 14:00 Duloxetine HCl (Cymbalta) 30 mg DAILY PO Last administered on 11/06/18 09:28; Admin Dose 30 MG; Start 10/10/18 at 09:00 Gabapentin (Neurontin Liquid) 400 mg Q8 GTB Last administered on 11/06/18 06:17; Admin Dose 400 MG; Start 10/09/18 at 15:30 Hydralazine HCl (Apresoline) 10 mg Q4H PRN IV ELEVATED BLOOD PRESSURE; Start 10/09/18 at 14:00 Hydroxychloroquine Sulfate (Plaquenil) 200 mg BID PO Last administered on 11/06/18 09:28; Admin Dose 200 MG; Start 10/09/18 at 21:00 Diagnostic Test (Pha) (Accu-Chek) 1 ea 02 XX Last administered on 11/04/18 02:27; Admin Dose 1 EA; Start 10/10/18 at 02:00 Insulin Aspart (Novolog Insulin Pen) NOVOLOG *CUSTOM* ALGORITHM Q6H SC Last administered on 11/03/18 02:36; Admin Dose 1 UNIT; Start 10/09/18 at 14:00 Lactobacillus Acidophilus (Florajen3 Capsule) 1 each BID GTB Last administered on 11/06/18 09:24; Admin Dose 1 EACH; Start 10/09/18 at 21:00 Lansoprazole (Prevacid) 30 mg BID@,18 GTB Last administered on 11/06/18 06:14; Admin Dose 30 MG; Start 10/09/18 at 18:00 Levetiracetam (Keppra Liquid) 500 mg BID GTB Last administered on 11/06/18 09:25; Admin Dose 500 MG; Start 10/09/18 at 21:00 Magnesium Oxide (Mag-Ox 400) 400 mg BID GTB Last administered on 11/06/18 09:25; Admin Dose 400 MG; Start 10/09/18 at 21:00 Metoclopramide HCl (Reglan) 10 mg TID IV Last administered on 11/06/18 09:19; Admin Dose 10 MG; Start 10/09/18 at 21:00 Miconazole Nitrate (Miconazole 2% Cr) 1 applic BID TOP Last administered on 11/06/18 09:29; Admin Dose 1 APPLIC; Start 10/09/18 at 21:00 Miconazole Nitrate (Miconazole 2% Cr) 1 applic Q12 PRN TOP rash; Start 10/09/18 at 14:00 Ondansetron HCl (Zofran Inj) 4 mg Q4H PRN IV NAUSEA AND/OR VOMITING Last administered on 10/19/18 16:37; Admin Dose 4 MG; Start 10/09/18 at 14:00 Polyethylene Glycol (Miralax) 17 gm DAILY PRN GTB CONSTIPATION; Start 10/09/18 at 14:00 Senna (Senokot) 2 tab Q8 PRN PO CONSTIPATION; Start 10/09/18 at 14:00 Trimethoprim/ Sulfamethoxazole (Bactrim Susp) 40 ml DAILY GTB Last administered on 11/06/18 09:23; Admin Dose 40 ML; Start 10/10/18 at 09:00 Zolpidem Tartrate (Ambien) 5 mg HS PRN PO INSOMNIA Last administered on 11/03/18 01:16; Admin Dose 5 MG; Start 10/09/18 at 14:00 Miscellaneous Information 1 ea NOTE XX ; Start 10/09/18 at 15:00 Glucose (Glutose) 15 gm Q15M PRN PO DECREASED GLUCOSE; Start 10/09/18 at 15:00 Glucose (Glutose) 22.5 gm Q15M PRN PO DECREASED GLUCOSE; Start 10/09/18 at 15:00 Dextrose (D50w Syringe) 25 ml Q15M PRN IV DECREASED GLUCOSE; Start 10/09/18 at 15:00 Dextrose (D50w Syringe) 50 ml Q15M PRN IV DECREASED GLUCOSE; Start 10/09/18 at 15:00 Glucagon (Glucagen) 1 mg Q15M PRN IM DECREASED GLUCOSE; Start 10/09/18 at 15:00 Glucose (Glutose) 15 gm Q15M PRN BUCCAL DECREASED GLUCOSE; Start 10/09/18 at 15:00 Sodium Chloride 500 ml @ 500 mls/hr Q1H PRN IV BLOOD PRESSURE SUPPORT Last administered on 10/31/18at 03:35; Admin Dose 500 MLS/HR; Start 10/09/18 at 19:30 Albuterol (Ventolin Hfa) 4 puff Q6H RESP THERAPY INH Last administered on 11/06/18 08:07; Admin Dose 4 PUFF; Start 10/10/18 at 02:00 Ipratropium [place] (Atrovent Hfa) 4 puff Q6H RESP THERAPY INH Last adm inistered on 11/06/18 08:07; Admin Dose 4 PUFF; Start 10/10/18 at 02:00 Lorazepam (Ativan) 1 mg Q4H PRN GTB AGITATION/ANXIETY Last administered on 11/05/18 20:35; Admin Dose 1 MG; Start 10/14/18 at 13:00 Linagliptin (Tradjenta) 5 mg DAILY PO Last administered on 11/06/18 09:29; Admin Dose 5 MG; Start 10/16/18 at 10:30 Fentanyl (Duragesic 50 Mcg/Hr Patch) 1 patch Q72H TRANSDERM Last administered on 11/04/18 20:57; Admin Dose 1 PATCH; Start 10/17/18 at 20:30 Lorazepam (Ativan) 2 mg Q6H GTB Last administered on 11/06/18 09:24; Admin Dose 2 MG; Start 10/20/18 at 15:00 Quetiapine Fumarate (Seroquel) 100 mg BID GTB Last administered on 11/06/18 09:26; Admin Dose 100 MG; Start 10/21/18 at 21:00 Hydromorphone HCl (Dilaudid) 6 mg Q4H PRN PO MODERATE PAIN LEVEL 7-10 Last administered on 11/06/18 06:15; Admin Dose 6 MG; Start 10/21/18 at 22:00 Calcium Carbonate (Ca Carbonate) 1,250 mg QID GTB Last administered on 11/06/18 09:24; Admin Dose 1,250 MG; Start 10/24/18 at 13:00 Calcitriol (Rocaltrol) 1 mcg BID PO Last administered on 11/06/18 09:28; Admin Dose 1 MCG; Start 10/28/18 at 09:00 Metoprolol Tartrate (Lopressor) 5 mg Q4H PRN IV HR>110 Hold SBP<100 Last administered on 11/06/18 00:43; Admin Dose 5 MG; Start 10/28/18 at 12:30 Carvedilol (Coreg) 3.125 mg BID PO Last administered on 11/06/18 09:27; Admin Dose 3.125 MG; Start 11/01/18 at 21:00 Phenylephrine HCl 40 mg/Dextrose 250 ml @ 37.5 mls/hr TITRATE IV Last administered on 11/02/18 09:05; Admin Dose 11.25 MLS/HR; Start 11/01/18 at 13:30 IV Flush (NS 10 ml) 10 ml PRN PRN IV IV PROTOCOL; Start 11/01/18 at 16:30 Collagenase (Santyl) 1 applic DAILY TOP Last administered on 11/06/18 09:30; Admin Dose 1 APPLIC; Start 11/01/18 at 19:30 Norepinephrine 32 mg/Dextrose 250 ml @ 0.47 mls/hr TITRATE IV Last administ ered on 11/02/18 12:15; Admin Dose 0.47 MLS/HR; Start 11/02/18 at 11:30 Midodrine (Proamatine) 5 mg TID@09,13,17 GTB Last administered on 11/05/18 17:05; Admin Dose 5 MG; Start 11/03/18 at 09:00 Guaifenesin (Robitussin Liquid Cup) 100 mg Q4H PRN PO COUGH Last administered on 11/05/18 20:31; Admin Dose 100 MG; Start 11/03/18 at 12:00 Hydrocortisone (Cortef) 20 mg QAM PEG Last administered on 11/06/18 09:27; Admin Dose 20 MG; Start 11/04/18 at 09:00 Hydrocortisone (Cortef) 20 mg AC DINNER PEG Last administered on 11/05/18 17:05; Admin Dose 20 MG; Start 11/04/18 at 17:05 Hydrocortisone (Cortef) 20 mg HS PEG Last administered on 11/05/18 20:33; Admin Dose 20 MG; Start 11/03/18 at 22:45 BRISA HAQUE Nov 06, 2018 11:34
--- NOTE | 2018-11-06 11:45 | PN ---
Date/Time of Note Date/Time of Note DATE: 11/06/18 TIME: 11:45 Assessment/Plan VTE Prophylaxis Risk score (from Ns)>0 risk: 5 SCD applied (from [facility] [place]): Yes Pharmacological prophylaxis: LMWH Lines/Catheters IV Catheter Type (from [facility]): PICC Line Central line still needed: Yes Urinary Cath still in place: No Assessment/Plan Hospital Course 1. Respiratory failure. Continue vent support and breathing treatment. 2. Septic shock. Continue Bactrim for pneumocystis prophylaxis. Continue to monitor off further systemic antibiotic. 3. Leukocytosis. The patient is on chronic steroid due to rheumatoid arthritis. 4. Quadriplegia due to cervical myelopathy status post surgery. 5. Chronic pain syndrome, stable. 6. Seizure disorder. Continue Keppra. 7. Hypothyroidism. Continue replacement therapy. 8. Primary hypoparathyroidism. Calcium is 7.1. The patient is being followed by Dr. Magallanes. 9. Hypokalemia. The patient did receive 40 mEq of potassium. The patient also will receive 2 units of PRBC for his anemia. There is no obvious bleeding from any site. The patient remains critical and will be kept in ICU. Result Diagram: 11/06/18 0450 11/06/18 0450 Results 24hrs Laboratory Tests Test 11/05/18 14:33 11/05/18 20:51 11/06/18 01:37 11/06/18 04:50 Bedside Glucose 130 131 144 White Blood Count 13.8 H Red Blood Count 3.23 L Hemoglobin 9.4 L Hematocrit 31.1 L Mean Corpuscular 96.3 Volume Mean Corpuscular 29.1 Hemoglobin Mean Corpuscular 30.2 L Hemoglobin Concen t Red Cell 16.5 H Distribution Width Platelet Count 173 Mean Platelet 11.2 H Volume Immature 1.000 H Granulocytes % Neutrophils % 77.4 H Lymphocytes % 4.5 L Monocytes % 8.7 Eosinophils % 8.0 H Basophils % 0.4 Nucleated Red 0.0 Blood Cells % Immature 0.140 H Granulocytes # Neutrophils # 10.7 H Lymphocytes # 0.6 L Monocytes # 1.2 H Eosinophils # 1.1 H Basophils # 0.1 Nucleated Red 0.0 Blood Cells # Sodium Level 139 Potassium Level 4.3 Chloride Level 98 Carbon Dioxide 39 H Level Anion Gap 2 L Blood Urea 20 Nitrogen Creatinine 0.23 L Est Glomerular > 60 Filtrat Rate mL/min Glucose Level 114 Lactic Acid Level 1.3 Calcium Level 6.9 L Test 11/06/18 05:00 11/06/18 08:27 Blood Gas Blood arterial Specimen Source Arterial Blood 11/06/2018 4:40:4 Date Drawn 0 AM Arterial Blood pH 7.362 (Temp corrected) Arterial Blood 72.2 H pCO2 (Temp correct) Arterial Blood 89.5 pO2 (Temp corrected) Arterial Blood 40.1 *H HCO3 Arterial Blood 12.3 H Base Excess Arterial Blood 96.3 Oxygen Saturation Chandler Test ACCEPTAB Arterial Blood Right Radial Gas Puncture Site Arterial 1.2 Blood Carboxyhemo globin Arterial Blood 0.5 Methemoglobin Blood Gas A-a O2 332.0 H Differential Oxyhemoglobin 94.7 Percent Blood Gas 37.0 Temperature Blood Gas 20.0 Respiration Rate Blood Gas Actual 23 Respiration Rate Blood Gas VENT - PC Modality FiO2 70.0 Blood Gas High 28.0 PEEP Setting Blood Gas Low 8.0 PEEP Setting Blood Gas JDUFEBANDAR RN Critical Value Read Back Blood Gas RYAN Notified Whom Blood Gas 11/06/2018 5:17:5 Notified Time 0 AM Bedside Glucose 93 Subjective 24 Hr Interval Summary Free Text/Dictation Eyes open to voice, appears lethargic Exam/Review of Systems Exam Vitals Vital Signs Date Temp Pulse Resp B/P (MAP) Pulse Ox O2 O2 Flow FiO2 Time Delivery Rate 11/06/18 115 09:05 11/06/18 99.1 08:48 11/06/18 100 65 08:07 11/06/18 19 126/93 08:00 (104) 11/06/18 Mechanical 06:00 Ventilator Intake and Output 11/05/18 11/05/18 11/06/18 1414:59 22:59 06:59 IntakeIntake Total 470 ml 330 ml 330 ml OutputOutput Total 445 ml 180 ml 1350 ml BalanceBalance 25 ml 150 ml -1020 ml Constitutional: well developed Head: normocephalic, atraumatic Neck: supple Respiratory: diminished breath sounds Cardiovascular: regular rate and rhythm Gastrointestinal: soft, non-tender Extremities: normal pulses Results Results 24hrs Laboratory Tests Test 11/05/18 14:33 11/05/18 20:51 11/06/18 01:37 11/06/18 04:50 Bedside Glucose 130 131 144 White Blood Count 13.8 H Red Blood Count 3.23 L Hemoglobin 9.4 L Hematocrit 31.1 L Mean Corpuscular 96.3 Volume Mean Corpuscular 29.1 Hemoglobin Mean Corpuscular 30.2 L Hemoglobin Concen t Red Cell 16.5 H Distribution Width Platelet Count 173 Mean Platelet 11.2 H Volume Immature 1.000 H Granulocytes % Neutrophils % 77.4 H Lymphocytes % 4.5 L Monocytes % 8.7 Eosinophils % 8.0 H Basophils % 0.4 Nucleated Red 0.0 Blood Cells % Immature 0.140 H Granulocytes # Neutrophils # 10.7 H Lymphocytes # 0.6 L Monocytes # 1.2 H Eosinophils # 1.1 H Basophils # 0.1 Nucleated Red 0.0 Blood Cells # Sodium Level 139 Potassium Level 4.3 Chloride Level 98 Carbon Dioxide 39 H Level Anion Gap 2 L Blood Urea 20 Nitrogen Creatinine 0.23 L Est Glomerular > 60 Filtrat Rate mL/min Glucose Level 114 Lactic Acid Level 1.3 Calcium Level 6.9 L Test 11/06/18 05:00 11/06/18 08:27 Blood Gas Blood arterial Specimen Source Arterial Blood 11/06/2018 4:40:4 Date Drawn 0 AM Arterial Blood pH 7.362 (Temp corrected) Arterial Blood 72.2 H pCO2 (Temp correct) Arterial Blood 89.5 pO2 (Temp corrected) Arterial Blood 40.1 *H HCO3 Arterial Blood 12.3 H Base Excess Arterial Blood 96.3 Oxygen Saturation [place] Test ACCEPTAB Arterial Blood Right Radial Gas Puncture Site Arterial 1.2 Blood Carboxyhemo globin Arterial Blood 0.5 Methemoglobin Blood Gas A-a O2 332.0 H Differential Oxyhemoglobin 94.7 Percent Blood Gas 37.0 Temperature Blood Gas 20.0 Respiration Rate Blood Gas Actual 23 Respiration Rate Blood Gas VENT - PC Modality FiO2 70.0 Blood Gas High 28.0 PEEP Setting Blood Gas Low 8.0 PEEP Setting Blood Gas JDUFEBANDAR RN Critical Value Read Back Blood Gas RYAN Notified Whom Blood Gas 11/06/2018 5:17:5 Notified Time 0 AM Bedside Glucose 93 Medications Medication Current Medications Acetaminophen (Tylenol Liquid) 650 mg Q4H PRN GTB MILD PAIN(1-3)OR ELEVATED TEMP Last administered on 11/05/18at 23:55; Admin Dose 650 MG; Start 10/09/18 at 14:00 Al Hydrox/Mg Hydrox/Simethicone (Mag-Al Plus) 15 ml Q6H PRN PO GASTROINTESTINAL UPSET Last administered on 10/17/18 13:18; Admin Dose 15 ML; Start 10/09/18 at 14:00 Eye Lubricant (Artificial Tears Oph) 1 drop Q6H PRN BOTH EYES DRY EYES Last administered on 11/03/18 09:33; Admin Dose 1 DROP; Start 10/09/18 at 14:00 Bisacodyl (Dulcolax Supp) 10 mg DAILY PRN [place] CONSTIPATION; Start 10/09/18 at 14:00 Clonidine (Catapres) 0.1 mg DAILY PRN GTB ELEVATED BLOOD PRESSURE; Start 10/09/18 at 14:00 Diltiazem HCl (Cardizem Iv) 5 mg Q4 PRN IV ELEVATED HEART RATE Last ad ministered on 10/18/18 01:09; Admin Dose 5 MG; Start 10/09/18 at 14:00 Diphenhydramine HCl (Benadryl Liquid Cup) 25 mg Q6 PRN GTB ITCHING Last administered on 10/22/18 20:25; Admin Dose 25 MG; Start 10/09/18 at 14:00 Duloxetine HCl (Cymbalta) 30 mg DAILY PO Last administered on 11/06/18 09:28; Admin Dose 30 MG; Start 10/10/18 at 09:00 Gabapentin (Neurontin Liquid) 400 mg Q8 GTB Last administered on 11/06/18 06:17; Admin Dose 400 MG; Start 10/09/18 at 15:30 Hydralazine HCl (Apresoline) 10 mg Q4H PRN IV ELEVATED BLOOD PRESSURE; Start 10/09/18 at 14:00 Hydroxychloroquine Sulfate (Plaquenil) 200 mg BID PO Last administered on 11/06/18 09:28; Admin Dose 200 MG; Start 10/09/18 at 21:00 Diagnostic Test (Pha) (Accu-Chek) 1 ea 02 XX Last administered on 11/04/18 02:27; Admin Dose 1 EA; Start 10/10/18 at 02:00 Insulin Aspart (Novolog Insulin Pen) NOVOLOG *CUSTOM* ALGORITHM Q6H SC Last a dministered on 11/03/18 02:36; Admin Dose 1 UNIT; Start 10/09/18 at 14:00 Lactobacillus Acidophilus (Florajen3 Capsule) 1 each BID GTB Last administered on 11/06/18 09:24; Admin Dose 1 EACH; Start 10/09/18 at 21:00 Lansoprazole (Prevacid) 30 mg BID@,18 GTB Last administered on 11/06/18 06:14; Admin Dose 30 MG; Start 10/09/18 at 18:00 Levetiracetam (Keppra Liquid) 500 mg BID GTB Last administered on 11/06/18 09:25; Admin Dose 500 MG; Start 10/09/18 at 21:00 Magnesium Oxide (Mag-Ox 400) 400 mg BID GTB Last administered on 11/06/18 09:25; Admin Dose 400 MG; Start 10/09/18 at 21:00 Metoclopramide HCl (Reglan) 10 mg TID IV Last administered on 11/06/18 09:19; Admin Dose 10 MG; Start 10/09/18 at 21:00 Miconazole Nitrate (Miconazole 2% Cr) 1 applic BID TOP Last administered on 11/06/18 09:29; Admin Dose 1 APPLIC; Start 10/09/18 at 21:00 Miconazole Nitrate (Miconazole 2% Cr) 1 applic Q12 PRN TOP rash; Start 10/09/18 at 14:00 Ondansetron HCl (Zofran Inj) 4 mg Q4H PRN IV NAUSEA AND/OR VOMITING Last administered on 10/19/18 16:37; Admin Dose 4 MG; Start 10/09/18 at 14:00 Polyethylene Glycol (Miralax) 17 gm DAILY PRN GTB CONSTIPATION; Start 10/09/18 at 14:00 Senna (Senokot) 2 tab Q8 PRN PO CONSTIPATION; Start 10/09/18 at 14:00 Trimethoprim/ Sulfamethoxazole (Bactrim Susp) 40 ml DAILY GTB Last administered on 11/06/18 09:23; Admin Dose 40 ML; Start 10/10/18 at 09:00 Zolpidem Tartrate (Ambien) 5 mg HS PRN PO INSOMNIA Last administered on 11/03/18 01:16; Admin Dose 5 MG; Start 10/09/18 at 14:00 Miscellaneous Information 1 ea NOTE XX ; Start 10/09/18 at 15:00 Glucose (Glutose) 15 gm Q15M PRN PO DECREASED GLUCOSE; Start 10/09/18 at 15:00 Glucose (Glutose) 22.5 gm Q15M PRN PO DECREASED GLUCOSE; Start 10/09/18 at 15:00 Dextrose (D50w Syringe) 25 ml Q15M PRN IV DECREASED GLUCOSE; Start 10/09/18 at 15:00 Dextrose (D50w Syringe) 50 ml Q15M PRN IV DECREASED GLUCOSE; Start 10/09/18 at 15:00 Glucagon (Glucagen) 1 mg Q15M PRN IM DECREASED GLUCOSE; Start 10/09/18 at 15:00 Glucose (Glutose) 15 gm Q15M PRN BUCCAL DECREASED GLUCOSE; Start 10/09/18 at 15:00 Sodium Chloride 500 ml @ 500 mls/hr Q1H PRN IV BLOOD PRESSURE SUPPORT Last administered on 10/31/18 03:35; Admin Dose 500 MLS/HR; Start 10/09/18 at 19:30 Albuterol (Ventolin Hfa) 4 puff Q6H RESP THERAPY INH Last administered on 11/06/18 08:07; Admin Dose 4 PUFF; Start 10/10/18 at 02:00 Ipratropium [place] (Atrovent Hfa) 4 puff Q6H RESP THERAPY INH Last administered on 11/06/18 08:07; Admin Dose 4 PUFF; Start 10/10/18 at 02:00 Lorazepam (Ativan) 1 mg Q4H PRN GTB AGITATION/ANXIETY Last administered on 11/05/18 20:35; Admin Dose 1 MG; Start 10/14/18 at 13:00 Linagliptin (Tradjenta) 5 mg DAILY PO Last administered on 11/06/18 09:29; Admin Dose 5 MG; Start 10/16/18 at 10:30 Fentanyl (Duragesic 50 Mcg/Hr Patch) 1 patch Q72H TRANSDERM Last administered on 11/04/18 20:57; Admin Dose 1 PATCH; Start 10/17/18 at 20:30 Lorazepam (Ativan) 2 mg Q6H GTB Last administered on 11/06/18 09:24; Admin D ose 2 MG; Start 10/20/18 at 15:00 Quetiapine Fumarate (Seroquel) 100 mg BID GTB Last administered on 11/06/18 09:26; Admin Dose 100 MG; Start 10/21/18 at 21:00 Hydromorphone HCl (Dilaudid) 6 mg Q4H PRN PO MODERATE PAIN LEVEL 7-10 Last administered on 11/06/18 06:15; Admin Dose 6 MG; Start 10/21/18 at 22:00 Calcium Carbonate (Ca Carbonate) 1,250 mg QID GTB Last administered on 11/06/18 09:24; Admin Dose 1,250 MG; Start 10/24/18 at 13:00 Calcitriol (Rocaltrol) 1 mcg BID PO Last administered on 11/06/18 09:28; Admin Dose 1 MCG; Start 10/28/18 at 09:00 Metoprolol Tartrate (Lopressor) 5 mg Q4H PRN IV HR>110 Hold SBP<100 Last administered on 11/06/18 00:43; Admin Dose 5 MG; Start 10/28/18 at 12:30 Carvedilol (Coreg) 3.125 mg BID PO Last administered on 11/06/18 09:27; Admin Dose 3.125 MG; Start 11/01/18 at 21:00 Phenylephrine HCl 40 mg/Dextrose 250 ml @ 37.5 mls/hr TITRATE IV Last a dministered on 11/02/18 09:05; Admin Dose 11.25 MLS/HR; Start 11/01/18 at 13:30 IV Flush (NS 10 ml) 10 ml PRN PRN IV IV PROTOCOL; Start 11/01/18 at 16:30 Collagenase (Santyl) 1 applic DAILY TOP Last administered on 11/06/18 09:30; Admin Dose 1 APPLIC; Start 11/01/18 at 19:30 Norepinephrine 32 mg/Dextrose 250 ml @ 0.47 mls/hr TITRATE IV Last administered on 11/02/18 12:15; Admin Dose 0.47 MLS/HR; Start 11/02/18 at 11:30 Midodrine (Proamatine) 5 mg TID@,13,17 GTB Last administered on 11/05/18 17:05; Admin Dose 5 MG; Start 11/03/18 at 09:00 Guaifenesin (Robitussin Liquid Cup) 100 mg Q4H PRN PO COUGH Last administered on 11/05/18 20:31; Admin Dose 100 MG; Start 11/03/18 at 12:00 Hydrocortisone (Cortef) 20 mg QAM PEG Last administered on 11/06/18 09:27; Admin Dose 20 MG; Start 11/04/18 at 09:00 Hydrocortisone (Cortef) 20 mg AC DINNER PEG Last administered on 11/05/18 17:05; Admin Dose 20 MG; Start 11/04/18 at 17:05 Hydrocortisone (Cortef) 20 mg HS PEG Last administered on 11/05/18at 20:33; Admin Dose 20 MG; Start 11/03/18 at 22:45 Digoxin (Digoxin) 250 mcg ONCE ONCE IV ; Start 11/06/18 at 12:00; Stop 11/06/18 at 12:01; Status UNV Furosemide (Lasix) 20 mg ONCE ONCE IV ; Start 11/06/18 at 12:00; Stop 11/06/18 at 12:01; Status UNV ANGELES HO Nov 06, 2018 11:45
[2018-11-06] MEDS ORDERED: DIGOXIN 500 MCG INJ IV ONE (12:00)
[2018-11-06] MEDS ORDERED: FUROSEMIDE 20 MG INJ IV ONE (12:00)
--- NOTE | 2018-11-06 12:43 | CONS ---
Consult Date/Type/Reason Admit Date/Time Oct 09, 2018 at 12:16 Initial Consult Date 10/12/18 Type of Consultation: Pulm/CCM Requesting Provider: NOLA VIDAL MD Date/Time of Note DATE: 11/06/18 TIME: 12:42 Subjective No events. Remains on the vent. Less agitated today. Objective Vitals Vital Signs Date Temp Pulse Resp B/P (MAP) Pulse Ox O2 O2 Flow FiO2 Time Delivery Rate 11/06/18 122 12:21 11/06/18 99.1 08:48 11/06/18 100 65 08:07 11/06/18 126/93 08:00 (104) 11/06/18 Mechanical 06:00 Ventilator Intake and Output 11/05/18 11/05/18 11/06/18 1515:00 23:00 07:00 IntakeIntake Total 470 ml 290 ml 370 ml OutputOutput Total 445 ml 80 ml 1350 ml BalanceBalance 25 ml 210 ml -980 ml Exam HEENT: Neck supple; no JVD; no LAD; + trach site clean CVS: RRR, S1 and S2 CHEST: Coarse BS b/l ABD: Soft, NT, + BS EXT: No c/c; tr edema Results/Medications Result Diagram: 11/06/18 0450 11/06/18 0450 Results 24 hrs Laboratory Tests Test 11/05/18 14:33 11/05/18 20:51 11/06/18 01:37 11/06/18 04:50 Bedside Glucose 130 131 144 White Blood Count 13.8 H Red Blood Count 3.23 L Hemoglobin 9.4 L Hematocrit 31.1 L Mean Corpuscular 96.3 Volume Mean Corpuscular 29.1 Hemoglobin Mean Corpuscular 30.2 L Hemoglobin Concen t Red Cell 16.5 H Distribution Width Platelet Count 173 Mean Platelet 11.2 H Volume Immature 1.000 H Granulocytes % Neutrophils % 77.4 H Lymphocytes % 4.5 L Monocytes % 8.7 Eosinophils % 8.0 H Basophils % 0.4 Nucleated Red 0.0 Blood Cells % Immature 0.140 H Granulocytes # Neutrophils # 10.7 H Lymphocytes # 0.6 L Monocytes # 1.2 H Eosinophils # 1.1 H Basophils # 0.1 Nucleated Red 0.0 Blood Cells # Sodium Level 139 Potassium Level 4.3 Chloride Level 98 Carbon Dioxide 39 H Level Anion Gap 2 L Blood Urea 20 Nitrogen Creatinine 0.23 L Est Glomerular > 60 Filtrat Rate mL/min Glucose Level 114 Lactic Acid Level 1.3 Calcium Level 6.9 L Test 11/06/18 05:00 11/06/18 08:27 Blood Gas Blood arterial Specimen Source Arterial Blood 11/06/2018 4:40:4 Date Drawn 0 AM Arterial Blood pH 7.362 (Temp corrected) Arterial Blood 72.2 H pCO2 (Temp correct) Arterial Blood 89.5 pO2 (Temp corrected) Arterial Blood 40.1 *H HCO3 Arterial Blood 12.3 H Base Excess Arterial Blood 96.3 Oxygen Saturation Chandler Test ACCEPTAB Arterial Blood Right Radial Gas Puncture Site Arterial 1.2 Blood Carboxyhemo globin Arterial Blood 0.5 Methemoglobin Blood Gas A-a O2 332.0 H Differential Oxyhemoglobin 94.7 Percent Blood Gas 37.0 Temperature Blood Gas 20.0 Respiration Rate Blood Gas Actual 23 Respiration Rate Blood Gas VENT - PC Modality FiO2 70.0 Blood Gas High 28.0 PEEP Setting Blood Gas Low 8.0 PEEP Setting Blood Gas LMFEBANDAR KELLER Critical Value Read Back Blood Gas RYAN Notified Whom Blood Gas 11/06/2018 5:17:5 Notified Time 0 AM Bedside Glucose 93 Medications Current Medications Acetaminophen (Tylenol Liquid) 650 mg Q4H PRN GTB MILD PAIN(1-3)OR ELEVATED TEMP Last administered on 11/05/18at 23:55; Admin Dose 650 MG; Start 10/09/18 at 14:00 Al Hydrox/Mg Hydrox/Simethicone (Mag-Al Plus) 15 ml Q6H PRN PO GASTROINTESTINAL UPSET Last administered on 10/17/18at 13:18; Admin Dose 15 ML; Start 10/09/18 at 14:00 Eye Lubricant (Artificial Tears Oph) 1 drop Q6H PRN BOTH EYES DRY EYES Last administered on 11/03/18at 09:33; Admin Dose 1 DROP; Start 10/09/18 at 14:00 Bisacodyl (Dulcolax Supp) 10 mg DAILY PRN [place] CONSTIPATION; Start 10/09/18 at 14:00 Clonidine (Catapres) 0.1 mg DAILY PRN GTB ELEVATED BLOOD PRESSURE; Start 10/09/18 at 14:00 Diltiazem HCl (Cardizem Iv) 5 mg Q4 PRN IV ELEVATED HEART RATE Last administered on 10/18/18 01:09; Admin Dose 5 MG; Start 10/09/18 at 14:00 Diphenhydramine HCl (Benadryl Liquid Cup) 25 mg Q6 PRN GTB ITCHING Last administered on 10/22/18 20:25; Admin Dose 25 MG; Start 10/09/18 at 14:00 Duloxetine HCl (Cymbalta) 30 mg DAILY PO Last administered on 11/06/18 09:28; Admin Dose 30 MG; Start 10/10/18 at 09:00 Gabapentin (Neurontin Liquid) 400 mg Q8 GTB Last administered on 11/06/18 06:17; Admin Dose 400 MG; Start 10/09/18 at 15:30 Hydralazine HCl (Apresoline) 10 mg Q4H PRN IV ELEVATED BLOOD PRESSURE; Start 10/09/18 at 14:00 Hydroxychloroquine Sulfate (Plaquenil) 200 mg BID PO Last administered on 11/06/18 09:28; Admin Dose 200 MG; Start 10/09/18 at 21:00 Diagnostic Test (Pha) (Accu-Chek) 1 ea 02 XX Last administered on 11/04/18 02:27; Admin Dose 1 EA; Start 10/10/18 at 02:00 Insulin Aspart (Novolog Insulin Pen) NOVOLOG *CUSTOM* ALGORITHM Q6H SC Last administered on 11/03/18 02:36; Admin Dose 1 UNIT; Start 10/09/18 at 14:00 Lactobacillus Acidophilus (Florajen3 Capsule) 1 each BID GTB Last administered on 11/06/18 09:24; Admin Dose 1 EACH; Start 10/09/18 at 21:00 Lansoprazole (Prevacid) 30 mg BID@,18 GTB Last administered on 11/06/18 06:14; Admin Dose 30 MG; Start 10/09/18 at 18:00 Levetiracetam (Keppra Liquid) 500 mg BID GTB Last administered on 11/06/18 09:25; Admin Dose 500 MG; Start 10/09/18 at 21:00 Magnesium Oxide (Mag-Ox 400) 400 mg BID GTB Last administered on 11/06/18 09:25; Admin Dose 400 MG; Start 10/09/18 at 21:00 Metoclopramide HCl (Reglan) 10 mg TID IV Last administered on 11/06/18at 12:15; Admin Dose 10 MG; Start 10/09/18 at 21:00 Miconazole Nitrate (Miconazole 2% Cr) 1 applic BID TOP Last administered on 11/06/18at 09:29; Admin Dose 1 APPLIC; Start 10/09/18 at 21:00 Miconazole Nitrate (Miconazole 2% Cr) 1 applic Q12 PRN TOP rash; Start 10/09/18 at 14:00 Ondansetron HCl (Zofran Inj) 4 mg Q4H PRN IV NAUSEA AND/OR VOMITING Last administered on 10/19/18at 16:37; Admin Dose 4 MG; Start 10/09/18 at 14:00 Polyethylene Glycol (Miralax) 17 gm DAILY PRN GTB CONSTIPATION; Start 10/09/18 at 14:00 Senna (Senokot) 2 tab Q8 PRN PO CONSTIPATION; Start 10/09/18 at 14:00 Trimethoprim/ Sulfamethoxazole (Bactrim Susp) 40 ml DAILY GTB Last administered on 11/06/18at 09:23; Admin Dose 40 ML; Start 10/10/18 at 09:00 Zolpidem Tartrate (Ambien) 5 mg HS PRN PO INSOMNIA Last administered on 11/03/18at 01:16; Admin Dose 5 MG; Start 10/09/18 at 14:00 Miscellaneous Information 1 ea NOTE XX ; Start 10/09/18 at 15:00 Glucose (Glutose) 15 gm Q15M PRN PO DECREASED GLUCOSE; Start 10/09/18 at 15:00 Glucose (Glutose) 22.5 gm Q15M PRN PO DECREASED GLUCOSE; Start 10/09/18 at 15:00 Dextrose (D50w Syringe) 25 ml Q15M PRN IV DECREASED GLUCOSE; Start 10/09/18 at 15:00 Dextrose (D50w Syringe) 50 ml Q15M PRN IV DECREASED GLUCOSE; Start 10/09/18 at 15:00 Glucagon (Glucagen) 1 mg Q15M PRN IM DECREASED GLUCOSE; Start 10/09/18 at 15:00 Glucose (Glutose) 15 gm Q15M PRN BUCCAL DECREASED GLUCOSE; Start 10/09/18 at 15:00 Sodium Chloride 500 ml @ 500 mls/hr Q1H PRN IV BLOOD PRESSURE SUPPORT Last administered on 10/31/18 03:35; Admin Dose 500 MLS/HR; Start 10/09/18 at 19:30 Albuterol (Ventolin Hfa) 4 puff Q6H RESP THERAPY INH Last administered on 11/06/18 08:07; Admin Dose 4 PUFF; Start 10/10/18 at 02:00 Ipratropium Fay (Atrovent Hfa) 4 puff Q6H RESP THERAPY INH Last administered on 11/06/18 08:07; Admin Dose 4 PUFF; Start 10/10/18 at 02:00 Lorazepam (Ativan) 1 mg Q4H PRN GTB AGITATION/ANXIETY Last administered on 11/05/18 20:35; Admin Dose 1 MG; Start 10/14/18 at 13:00 Linagliptin (Tradjenta) 5 mg DAILY PO Last administered on 11/06/18 09:29; Admin Dose 5 MG; Start 10/16/18 at 10:30 Fentanyl (Duragesic 50 Mcg/Hr Patch) 1 patch Q72H TRANSDERM Last administered on 11/04/18 20:57; Admin Dose 1 PATCH; Start 10/17/18 at 20:30 Lorazepam (Ativan) 2 mg Q6H GTB Last administered on 11/06/18 09:24; Admin Dose 2 MG; Start 10/20/18 at 15:00 Quetiapine Fumarate (Seroquel) 100 mg BID GTB Last administered on 11/06/18 09:26; Admin Dose 100 MG; Start 10/21/18 at 21:00 Hydromorphone HCl (Dilaudid) 6 mg Q4H PRN PO MODERATE PAIN LEVEL 7-10 Last administered on 11/06/18 12:15; Admin Dose 6 MG; Start 10/21/18 at 22:00 Calcium Carbonate (Ca Carbonate) 1,250 mg QID GTB Last administered on 11/06/18 12:22; Admin Dose 1,250 MG; Start 10/24/18 at 13:00 Calcitriol (Rocaltrol) 1 mcg BID PO Last administered on 11/06/18 09:28; Admin Dose 1 MCG; Start 10/28/18 at 09:00 Metoprolol Tartrate (Lopressor) 5 mg Q4H PRN IV HR>110 Hold SBP<100 Last administered on 11/06/18 00:43; Admin Dose 5 MG; Start 10/28/18 at 12:30 Carvedilol (Coreg) 3.125 mg BID PO Last administered on 11/06/18 09:27; Admin Dose 3.125 MG; Start 11/01/18 at 21:00 Phenylephrine HCl 40 mg/Dextrose 250 ml @ 37.5 mls/hr TITRATE IV Last administered on 11/02/18 09:05; Admin Dose 11.25 MLS/HR; Start 11/01/18 at 13:30 IV Flush (NS 10 ml) 10 ml PRN PRN IV IV PROTOCOL; Start 11/01/18 at 16:30 Collagenase (Santyl) 1 applic DAILY TOP Last administered on 11/06/18 09:30; Admin Dose 1 APPLIC; Start 11/01/18 at 19:30 Norepinephrine 32 mg/Dextrose 250 ml @ 0.47 mls/hr TITRATE IV Last administered on 11/02/18 12:15; Admin Dose 0.47 MLS/HR; Start 11/02/18 at 11:30 Midodrine (Proamatine) 5 mg TID@09,13,17 GTB Last administered on 11/05/18 17:05; Admin Dose 5 MG; Start 11/03/18 at 09:00 Guaifenesin (Robitussin Liquid Cup) 100 mg Q4H PRN PO COUGH Last administered on 11/05/18 20:31; Admin Dose 100 MG; Start 11/03/18 at 12:00 Hydrocortisone (Cortef) 20 mg QAM PEG Last administered on 11/06/18 09:27; Admin Dose 20 MG; Start 11/04/18 at 09:00 Hydrocortisone (Cortef) 20 mg AC DINNER PEG Last administered on 11/05/18 17:05; Admin Dose 20 MG; Start 11/04/18 at 17:05 Hydrocortisone (Cortef) 20 mg HS PEG Last administered on 11/05/18 20:33; Admin Dose 20 MG; Start 11/03/18 at 22:45 Assessment/Plan Assessment/Plan (Daily) IMP: 1. Acute on chronic hypoxemic respiratory failure with underlying acute respiratory distress syndrome. FiO2 increased to 60% with a PEEP of 8. 2. History of HSV esophagitis. 3. Chronic sepsis. 4. History of rheumatoid arthritis. 5. C-spine disease with functional quadriplegia. 6. Dysphagia with G-tube. RECS: 1. Continue mechanical, decrease FiO2 as tolerated 2. TF/Free H20 3. Consider methadone via NG 4. Abx per ID 5. DNR status noted Palliative care recommendations Critical care time 40 minute YOLETTE REYNOLDS MD Nov 06, 2018 12:43
--- NOTE | 2018-11-06 12:59 | CONS ---
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 -PTH <1 -continue calcitriol 1 mcg po BID -continue calcium carbonate 1250mg po QID -check magnesium Adrenal insufficiency -continue hydrocortisone 20mg PO TID -BP stable -normal sodium and potassium Type 2 DM -FS in normal range -continue tradjenta 5 mg po daily -continue custom scale novolog sliding scale Q6H Consultation Date/Type/Reason Admit Date/Time Oct 09, 2018 at 12:16 Initial Consult Date 10/12/18 Requesting Provider: NOLA VIDAL MD Date/Time of Note DATE: 11/06/18 TIME: 12:56 24 HR Interval Summary Free Text/Dictation Patient seen and examined at bedside, he appears more alert today and able to follow commands Exam/Review of Systems Exam Vitals Vital Signs Date Temp Pulse Resp B/P (MAP) Pulse Ox O2 O2 Flow FiO2 Time Delivery Rate 11/06/18 122 12:21 11/06/18 99.1 08:48 11/06/18 100 65 08:07 11/06/18 126/93 08:00 (104) 11/06/18 Mechanical 06:00 Ventilator Intake and Output 11/05/18 11/05/18 11/06/18 1515:00 23:00 07:00 IntakeIntake Total 470 ml 290 ml 370 ml OutputOutput Total 445 ml 80 ml 1350 ml BalanceBalance 25 ml 210 ml -980 ml Exam General: Patient opens eyes spontaneously and follows command, not in distress HENT: Normocephalic, atraumatic. trach intact Respiratory: Respirations are non-labored, Equal vented breath sounds bilaterally, Symmetrical chest wall expansion. Cardiovascular: S1, S2. Trace edema in bilateral lower extremity. Gastrointestinal: Soft, PEG intact, Normal bowel sounds. Integumentary: Warm to touch. Neurologic: Alert and awake, follows commands Results Result Diagram: 11/06/1844911/06/18449 Results 24hrs Laboratory Tests Test 11/05/18 14:33 11/05/18 20:51 11/06/18 01:37 11/06/18 04:50 Bedside Glucose 130 131 144 White Blood Count 13.8 H Red Blood Count 3.23 L Hemoglobin 9.4 L Hematocrit 31.1 L Mean Corpuscular 96.3 Volume Mean Corpuscular 29.1 Hemoglobin Mean Corpuscular 30.2 L Hemoglobin Concen t Red Cell 16.5 H Distribution Width Platelet Count 173 Mean Platelet 11.2 H Volume Immature 1.000 H Granulocytes % Neutrophils % 77.4 H Lymphocytes % 4.5 L Monocytes % 8.7 Eosinophils % 8.0 H Basophils % 0.4 Nucleated Red 0.0 Blood Cells % Immature 0.140 H Granulocytes # Neutrophils # 10.7 H Lymphocytes # 0.6 L Monocytes # 1.2 H Eosinophils # 1.1 H Basophils # 0.1 Nucleated Red 0.0 Blood Cells # Sodium Level 139 Potassium Level 4.3 Chloride Level 98 Carbon Dioxide 39 H Level Anion Gap 2 L Blood Urea 20 Nitrogen Creatinine 0.23 L Est Glomerular > 60 Filtrat Rate mL/min Glucose Level 114 Lactic Acid Level 1.3 Calcium Level 6.9 L Test 11/06/18 05:00 11/06/18 08:27 Blood Gas Blood arterial Specimen Source Arterial Blood 11/06/2018 4:40:4 Date Drawn 0 AM Arterial Blood pH 7.362 (Temp corrected) Arterial Blood 72.2 H pCO2 (Temp correct) Arterial Blood 89.5 pO2 (Temp corrected) Arterial Blood 40.1 *H HCO3 Arterial Blood 12.3 H Base Excess Arterial Blood 96.3 Oxygen Saturation Chandler Test ACCEPTAB Arterial Blood Right Radial Gas Puncture Site Arterial 1.2 Blood Carboxyhemo globin Arterial Blood 0.5 Methemoglobin Blood Gas A-a O2 332.0 H Differential Oxyhemoglobin 94.7 Percent Blood Gas 37.0 Temperature Blood Gas 20.0 Respiration Rate Blood Gas Actual 23 Respiration Rate Blood Gas VENT - PC Modality FiO2 70.0 Blood Gas High 28.0 PEEP Setting Blood Gas Low 8.0 PEEP Setting Blood Gas GRACIE KELLER Critical Value Read Back Blood Gas MA Notified Whom Blood Gas 11/06/2018 5:17:5 Notified Time 0 AM Bedside Glucose 93 Medications Medication Current Medications Acetaminophen (Tylenol Liquid) 650 mg Q4H PRN GTB MILD PAIN(1-3)OR ELEVATED TEMP Last administered on 11/05/18at 23:55; Admin Dose 650 MG; Start 10/09/18 at 14:00 Al Hydrox/Mg Hydrox/Simethicone (Mag-Al Plus) 15 ml Q6H PRN PO GASTROINTESTINAL UPSET Last administered on 10/17/18 13:18; Admin Dose 15 ML; Start 10/09/18 at 14:00 Eye Lubricant (Artificial Tears Oph) 1 drop Q6H PRN BOTH EYES DRY EYES Last administered on 11/03/18 09:33; Admin Dose 1 DROP; Start 10/09/18 at 14:00 Bisacodyl (Dulcolax Supp) [address] CONSTIPATION; Start 10/09/18 at 14:00 Clonidine (Catapres) 0.1 mg DAILY PRN GTB ELEVATED BLOOD PRESSURE; Start 10/09/18 at 14:00 Diltiazem HCl (Cardizem Iv) 5 mg Q4 PRN IV ELEVATED HEART RATE Last admini stered on 10/18/18 01:09; Admin Dose 5 MG; Start 10/09/18 at 14:00 Diphenhydramine HCl (Benadryl Liquid Cup) 25 mg Q6 PRN GTB ITCHING Last administered on 10/22/18 20:25; Admin Dose 25 MG; Start 10/09/18 at 14:00 Duloxetine HCl (Cymbalta) 30 mg DAILY PO Last administered on 11/06/18 09:28; Admin Dose 30 MG; Start 10/10/18 at 09:00 Gabapentin (Neurontin Liquid) 400 mg Q8 GTB Last administered on 11/06/18 06:17; Admin Dose 400 MG; Start 10/09/18 at 15:30 Hydralazine HCl (Apresoline) 10 mg Q4H PRN IV ELEVATED BLOOD PRESSURE; Start 10/09/18 at 14:00 Hydroxychloroquine Sulfate (Plaquenil) 200 mg BID PO Last administered on 11/06/18 09:28; Admin Dose 200 MG; Start 10/09/18 at 21:00 Diagnostic Test (Pha) (Accu-Chek) 1 ea 02 XX Last administered on 11/04/18 02:27; Admin Dose 1 EA; Start 10/10/18 at 02:00 Insulin Aspart (Novolog Insulin Pen) NOVOLOG *CUSTOM* ALGORITHM Q6H SC Last administered on 11/03/18 02:36; Admin Dose 1 UNIT; Start 10/09/18 at 14:00 Lactobacillus Acidophilus (Florajen3 Capsule) 1 each BID GTB Last administered on 11/06/18 09:24; Admin Dose 1 EACH; Start 10/09/18 at 21:00 Lansoprazole (Prevacid) 30 mg BID@18 GTB Last administered on 11/06/18 06:14; Admin Dose 30 MG; Start 10/09/18 at 18:00 Levetiracetam (Keppra Liquid) 500 mg BID GTB Last administered on 11/06/18 09:25; Admin Dose 500 MG; Start 10/09/18 at 21:00 Magnesium Oxide (Mag-Ox 400) 400 mg BID GTB Last administered on 11/06/18 09:25; Admin Dose 400 MG; Start 10/09/18 at 21:00 Metoclopramide HCl (Reglan) 10 mg TID IV Last administered on 11/06/18 12:15; Admin Dose 10 MG; Start 10/09/18 at 21:00 Miconazole Nitrate (Miconazole 2% Cr) 1 applic BID TOP Last administered on 11/06/18 09:29; Admin Dose 1 APPLIC; Start 10/09/18 at 21:00 Miconazole Nitrate (Miconazole 2% Cr) 1 applic Q12 PRN TOP rash; Start 10/09/18 at 14:00 Ondansetron HCl (Zofran Inj) 4 mg Q4H PRN IV NAUSEA AND/OR VOMITING Last administered on 10/19/18 16:37; Admin Dose 4 MG; Start 10/09/18 at 14:00 Polyethylene Glycol (Miralax) 17 gm DAILY PRN GTB CONSTIPATION; Start 10/09/18 at 14:00 Senna (Senokot) 2 tab Q8 PRN PO CONSTIPATION; Start 10/09/18 at 14:00 Trimethoprim/ Sulfamethoxazole (Bactrim Susp) 40 ml DAILY GTB Last administered on 11/06/18 09:23; Admin Dose 40 ML; Start 10/10/18 at 09:00 Zolpidem Tartrate (Ambien) 5 mg HS PRN PO INSOMNIA Last administered on 11/03/18 01:16; Admin Dose 5 MG; Start 10/09/18 at 14:00 Miscellaneous Information 1 ea NOTE XX ; Start 10/09/18 at 15:00 Glucose (Glutose) 15 gm Q15M PRN PO DECREASED GLUCOSE; Start 10/09/18 at 15:00 Glucose (Glutose) 22.5 gm Q15M PRN PO DECREASED GLUCOSE; Start 10/09/18 at 15:00 Dextrose (D50w Syringe) 25 ml Q15M PRN IV DECREASED GLUCOSE; Start 10/09/18 at 15:00 Dextrose (D50w Syringe) 50 ml Q15M PRN IV DECREASED GLUCOSE; Start 10/09/18 at 15:00 Glucagon (Glucagen) 1 mg Q15M PRN IM DECREASED GLUCOSE; Start 10/09/18 at 15:00 Glucose (Glutose) 15 gm Q15M PRN BUCCAL DECREASED GLUCOSE; Start 10/09/18 at 15:00 Sodium Chloride 500 ml @ 500 mls/hr Q1H PRN IV BLOOD PRESSURE SUPPORT Last administered on 10/31/18 03:35; Admin Dose 500 MLS/HR; Start 10/09/18 at 19:30 Albuterol (Ventolin Hfa) 4 puff Q6H RESP THERAPY INH Last administered on 11/06/18 08:07; Admin Dose 4 PUFF; Start 10/10/18 at 02:00 Ipratropium [place] (Atrovent Hfa) 4 puff Q6H RESP THERAPY INH Last administered on 11/06/18 08:07; Admin Dose 4 PUFF; Start 10/10/18 at 02:00 Lorazepam (Ativan) 1 mg Q4H PRN GTB AGITATION/ANXIETY Last administered on 11/05/18 20:35; Admin Dose 1 MG; Start 10/14/18 at 13:00 Linagliptin (Tradjenta) 5 mg DAILY PO Last administered on 11/06/18 09:29; Admin Dose 5 MG; Start 10/16/18 at 10:30 Fentanyl (Duragesic 50 Mcg/Hr Patch) 1 patch Q72H TRANSDERM Last administered on 11/04/18 20:57; Admin Dose 1 PATCH; Start 10/17/18 at 20:30 Lorazepam (Ativan) 2 mg Q6H GTB Last administered on 11/06/18 09:24; Admin Dose 2 MG; Start 10/20/18 at 15:00 Quetiapine Fumarate (Seroquel) 100 mg BID GTB Last administered on 11/06/18 09:26; Admin Dose 100 MG; Start 10/21/18 at 21:00 Hydromorphone HCl (Dilaudid) 6 mg Q4H PRN PO MODERATE PAIN LEVEL 7-10 Last administered on 11/06/18 12:15; Admin Dose 6 MG; Start 10/21/18 at 22:00 Calcium Carbonate (Ca Carbonate) 1,250 mg QID GTB Last administered on 11/06/18 12:22; Admin Dose 1,250 MG; Start 10/24/18 at 13:00 Calcitriol (Rocaltrol) 1 mcg BID PO Last administered on 11/06/18 09:28; Admin Dose 1 MCG; Start 10/28/18 at 09:00 Metoprolol Tartrate (Lopressor) 5 mg Q4H PRN IV HR>110 Hold SBP<100 Last administered on 11/06/18 00:43; Admin Dose 5 MG; Start 10/28/18 at 12:30 Carvedilol (Coreg) 3.125 mg BID PO Last administered on 11/06/18 09:27; Admin Dose 3.125 MG; Start 11/01/18 at 21:00 Phenylephrine HCl 40 mg/Dextrose 250 ml @ 37.5 mls/hr TITRATE IV Last admin istered on 11/02/18 09:05; Admin Dose 11.25 MLS/HR; Start 11/01/18 at 13:30 IV Flush (NS 10 ml) 10 ml PRN PRN IV IV PROTOCOL; Start 11/01/18 at 16:30 Collagenase (Santyl) 1 applic DAILY TOP Last administered on 11/06/18 09:30; Admin Dose 1 APPLIC; Start 11/01/18 at 19:30 Norepinephrine 32 mg/Dextrose 250 ml @ 0.47 mls/hr TITRATE IV Last administered on 11/02/18 12:15; Admin Dose 0.47 MLS/HR; Start 11/02/18 at 11:30 Midodrine (Proamatine) 5 mg TID@09,13,17 GTB Last administered on 11/05/18 17:05; Admin Dose 5 MG; Start 11/03/18 at 09:00 Guaifenesin (Robitussin Liquid Cup) 100 mg Q4H PRN PO COUGH Last administered on 11/05/18 20:31; Admin Dose 100 MG; Start 11/03/18 at 12:00 Hydrocortisone (Cortef) 20 mg QAM PEG Last administered on 11/06/18at 09:27; Admin Dose 20 MG; Start 11/04/18 at 09:00 Hydrocortisone (Cortef) 20 mg AC DINNER PEG Last administered on 11/05/18at 17:05; Admin Dose 20 MG; Start 11/04/18 at 17:05 Hydrocortisone (Cortef) 20 mg HS PEG Last administered on 11/05/18at 20:33; Admin Dose 20 MG; Start 11/03/18 at 22:45 AKBAR PIERCE MD Nov 06, 2018 12:59
--- NOTE | 2018-11-06 14:38 | CONS ---
Assessment/Plan Assessment/Plan Assessment/Plan (Daily) 1. Respiratory failure secondary to pneumonia versus interstitial pneumonitis from rheumatoid arthritis versus mild aspiration. -on Bactrim 2. Severe rheumatoid arthritis. 3. Quadriplegia. 4. Adrenal insufficiency. 5. Gastroparesis. -Reglan, denies nausea 6. Hypothyroidism. 7. Chronic pain syndrome. 8. Hypertension. 9. 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 Leukocytosis secondary to steroids 11.ARDS 12. Anxiety -on PO ativan 13. Anemia, there is significant drop in the hematocrit. Hematocrit is stable now at 31 14. Sinus tachycardia PLAN: Continue supportive ICU care Nothing by mouth per swallow eval results Continue with tube feeds check residuals q 4 hours Continue Reglan. And a PPI Stool for occult blood, not sent Monitor H&H Consultation Date/Type/Reason Admit Date/Time Oct 09, 2018 at 12:16 Initial Consult Date 10/12/18 Requesting Provider: NOLA VIDAL MD Date/Time of Note DATE: 11/06/18 TIME: 14:36 24 HR Interval Summary Constitutional: no complaints Exam/Review of Systems Exam Vitals Vital Signs Date Temp Pulse Resp B/P (MAP) Pulse Ox O2 O2 Flow FiO2 Time Delivery Rate 11/06/18 118 25 99 80 14:05 11/06/18 99.1 08:48 11/06/18 126/93 08:00 (104) 11/06/18 Mechanical 06:00 Ventilator Intake and Output 11/05/18 11/05/18 11/06/18 1515:00 23:00 07:00 IntakeIntake Total 470 ml 290 ml 370 ml OutputOutput Total 445 ml 80 ml 1350 ml BalanceBalance 25 ml 210 ml -980 ml Constitutional: alert, oriented Psych: anxiety Respiratory: diminished breath sounds Cardiovascular: regular rate and rhythm Gastrointestinal: soft, nl liver, spleen, non-tender Results Result Diagram: 11/06/18 0450 11/06/18 0450 Results 24hrs Laboratory Tests Test 11/05/18 20:51 11/06/18 01:37 11/06/18 04:50 11/06/18 05:00 Bedside Glucose 131 144 White Blood Count 13.8 H Red Blood Count 3.23 L Hemoglobin 9.4 L Hematocrit 31.1 L Mean Corpuscular 96.3 Volume Mean Corpuscular 29.1 Hemoglobin Mean Corpuscular 30.2 L Hemoglobin Concen t Red Cell 16.5 H Distribution Width Platelet Count 173 Mean Platelet 11.2 H Volume Immature 1.000 H Granulocytes % Neutrophils % 77.4 H Lymphocytes % 4.5 L Monocytes % 8.7 Eosinophils % 8.0 H Basophils % 0.4 Nucleated Red 0.0 Blood Cells % Immature 0.140 H Granulocytes # Neutrophils # 10.7 H Lymphocytes # 0.6 L Monocytes # 1.2 H Eosinophils # 1.1 H Basophils # 0.1 Nucleated Red 0.0 Blood Cells # Sodium Level 139 Potassium Level 4.3 Chloride Level 98 Carbon Dioxide 39 H Level Anion Gap 2 L Blood Urea 20 Nitrogen Creatinine 0.23 L Est Glomerular > 60 Filtrat Rate mL/min Glucose Level 114 Lactic Acid Level 1.3 Calcium Level 6.9 L Blood Gas Blood arterial Specimen Source Arterial Blood 11/06/2018 4:40:4 Date Drawn 0 AM Arterial Blood pH 7.362 (Temp corrected) Arterial Blood 72.2 H pCO2 (Temp correct) Arterial Blood 89.5 pO2 (Temp corrected) Arterial Blood 40.1 *H HCO3 Arterial Blood 12.3 H Base Excess Arterial Blood 96.3 Oxygen Saturation Chandler Test ACCEPTAB Arterial Blood Right Radial Gas Puncture Site Arterial 1.2 Blood Carboxyhemo globin Arterial Blood 0.5 Methemoglobin Blood Gas A-a O2 332.0 H Differential Oxyhemoglobin 94.7 Percent Blood Gas 37.0 Temperature Blood Gas 20.0 Respiration Rate Blood Gas Actual 23 Respiration Rate Blood Gas VENT - PC Modality FiO2 70.0 Blood Gas High 28.0 PEEP Setting Blood Gas Low 8.0 PEEP Setting Blood Gas LMFEBANDAR KELLER Critical Value Read Back Blood Gas RYAN Notified Whom Blood Gas 11/06/2018 5:17:5 Notified Time 0 AM Test 11/06/18 08:27 11/06/18 13:46 Bedside Glucose 93 123 Medications Medication Current Medications Acetaminophen (Tylenol Liquid) 650 mg Q4H PRN GTB MILD PAIN(1-3)OR ELEVATED TEMP Last administered on 11/05/18at 23:55; Admin Dose 650 MG; Start 10/09/18 at 14:00 Al Hydrox/Mg Hydrox/Simethicone (Mag-Al Plus) 15 ml Q6H PRN PO GASTROINTESTINAL UPSET Last administered on 10/17/18 13:18; Admin Dose 15 ML; Start 10/09/18 at 14:00 Eye Lubricant (Artificial Tears Oph) 1 drop Q6H PRN BOTH EYES DRY EYES Last administered on 11/03/18 09:33; Admin Dose 1 DROP; Start 10/09/18 at 14:00 Bisacodyl (Dulcolax Supp) 10 mg DAILY PRN [place] CONSTIPATION; Start 10/09/18 at 14:00 Clonidine (Catapres) 0.1 mg DAILY PRN GTB ELEVATED BLOOD PRESSURE; Start 10/09/18 at 14:00 Diltiazem HCl (Cardizem Iv) 5 mg Q4 PRN IV ELEVATED HEART RATE Last administered on 10/18/18 01:09; Admin Dose 5 MG; Start 10/09/18 at 14:00 Diphenhydramine HCl (Benadryl Liquid Cup) 25 mg Q6 PRN GTB ITCHING Last administered on 10/22/18 20:25; Admin Dose 25 MG; Start 10/09/18 at 14:00 Duloxetine HCl (Cymbalta) 30 mg DAILY PO Last administered on 11/06/18 09:28; Admin Dose 30 MG; Start 10/10/18 at 09:00 Gabapentin (Neurontin Liquid) 400 mg Q8 GTB Last administered on 11/06/18 06:17; Admin Dose 400 MG; Start 10/09/18 at 15:30 Hydralazine HCl (Apresoline) 10 mg Q4H PRN IV ELEVATED BLOOD PRESSURE; Start 10/09/18 at 14:00 Hydroxychloroquine Sulfate (Plaquenil) 200 mg BID PO Last administered on 11/06/18 09:28; Admin Dose 200 MG; Start 10/09/18 at 21:00 Diagnostic Test (Pha) (Accu-Chek) 1 ea 02 XX Last administered on 11/04/18 02:27; Admin Dose 1 EA; Start 10/10/18 at 02:00 Insulin Aspart (Novolog Insulin Pen) NOVOLOG *CUSTOM* ALGORITHM Q6H SC Last administered on 11/03/18 02:36; Admin Dose 1 UNIT; Start 10/09/18 at 14:00 Lactobacillus Acidophilus (Florajen3 Capsule) 1 each BID GTB Last administered on 11/06/18 09:24; Admin Dose 1 EACH; Start 10/09/18 at 21:00 Lansoprazole (Prevacid) 30 mg BID@18 GTB Last administered on 11/06/18 06:14; Admin Dose 30 MG; Start 10/09/18 at 18:00 Levetiracetam (Keppra Liquid) 500 mg BID GTB Last administered on 11/06/18 09:25; Admin Dose 500 MG; Start 10/09/18 at 21:00 Magnesium Oxide (Mag-Ox 400) 400 mg BID GTB Last administered on 11/06/18 09:25; Admin Dose 400 MG; Start 10/09/18 at 21:00 Metoclopramide HCl (Reglan) 10 mg TID IV Last administered on 11/06/18 12:15; Admin Dose 10 MG; Start 10/09/18 at 21:00 Miconazole Nitrate (Miconazole 2% Cr) 1 applic BID TOP Last administered on 11/06/18 09:29; Admin Dose 1 APPLIC; Start 10/09/18 at 21:00 Miconazole Nitrate (Miconazole 2% Cr) 1 applic Q12 PRN TOP rash; Start 10/09/18 at 14:00 Ondansetron HCl (Zofran Inj) 4 mg Q4H PRN IV NAUSEA AND/OR VOMITING Last administered on 10/19/18 16:37; Admin Dose 4 MG; Start 10/09/18 at 14:00 Polyethylene Glycol (Miralax) 17 gm DAILY PRN GTB CONSTIPATION; Start 10/09/18 at 14:00 Senna (Senokot) 2 tab Q8 PRN PO CONSTIPATION; Start 10/09/18 at 14:00 Trimethoprim/ Sulfamethoxazole (Bactrim Susp) 40 ml DAILY GTB Last administered on 11/06/18 09:23; Admin Dose 40 ML; Start 10/10/18 at 09:00 Zolpidem Tartrate (Ambien) 5 mg HS PRN PO INSOMNIA Last administered on 11/03/18 01:16; Admin Dose 5 MG; Start 10/09/18 at 14:00 Miscellaneous Information 1 ea NOTE XX ; Start 10/09/18 at 15:00 Glucose (Glutose) 15 gm Q15M PRN PO DECREASED GLUCOSE; Start 10/09/18 at 15:00 Glucose (Glutose) 22.5 gm Q15M PRN PO DECREASED GLUCOSE; Start 10/09/18 at 15:00 Dextrose (D50w Syringe) 25 ml Q15M PRN IV DECREASED GLUCOSE; Start 10/09/18 at 15:00 Dextrose (D50w Syringe) 50 ml Q15M PRN IV DECREASED GLUCOSE; Start 10/09/18 at 15:00 Glucagon (Glucagen) 1 mg Q15M PRN IM DECREASED GLUCOSE; Start 10/09/18 at 15:00 Glucose (Glutose) 15 gm Q15M PRN BUCCAL DECREASED GLUCOSE; Start 10/09/18 at 15:00 Sodium Chloride 500 ml @ 500 mls/hr Q1H PRN IV BLOOD PRESSURE SUPPORT Last administered on 10/31/18 03:35; Admin Dose 500 MLS/HR; Start 10/09/18 at 19:30 Albuterol (Ventolin Hfa) 4 puff Q6H RESP THERAPY INH Last administered on 11/06/18 14:05; Admin Dose 4 PUFF; Start 10/10/18 at 02:00 Ipratropium [place] (Atrovent Hfa) 4 puff Q6H RESP THERAPY INH Last ad ministered on 11/06/18 14:05; Admin Dose 4 PUFF; Start 10/10/18 at 02:00 Lorazepam (Ativan) 1 mg Q4H PRN GTB AGITATION/ANXIETY Last administered on 11/05/18 20:35; Admin Dose 1 MG; Start 10/14/18 at 13:00 Linagliptin (Tradjenta) 5 mg DAILY PO Last administered on 11/06/18 09:29; Admin Dose 5 MG; Start 10/16/18 at 10:30 Fentanyl (Duragesic 50 Mcg/Hr Patch) 1 patch Q72H TRANSDERM Last administered on 11/04/18 20:57; Admin Dose 1 PATCH; Start 10/17/18 at 20:30 Lorazepam (Ativan) 2 mg Q6H GTB Last administered on 11/06/18 09:24; Admin Dose 2 MG; Start 10/20/18 at 15:00 Quetiapine Fumarate (Seroquel) 100 mg BID GTB Last administered on 11/06/18 09:26; Admin Dose 100 MG; Start 10/21/18 at 21:00 Hydromorphone HCl (Dilaudid) 6 mg Q4H PRN PO MODERATE PAIN LEVEL 7-10 Last administered on 11/06/18 12:15; Admin Dose 6 MG; Start 10/21/18 at 22:00 Calcium Carbonate (Ca Carbonate) 1,250 mg QID GTB Last administered on 11/06/18 12:22; Admin Dose 1,250 MG; Start 10/24/18 at 13:00 Calcitriol (Rocaltrol) 1 mcg BID PO Last administered on 11/06/18 09:28; Admin Dose 1 MCG; Start 10/28/18 at 09:00 Metoprolol Tartrate (Lopressor) 5 mg Q4H PRN IV HR>110 Hold SBP<100 Last administered on 11/06/18 00:43; Admin Dose 5 MG; Start 10/28/18 at 12:30 Carvedilol (Coreg) 3.125 mg BID PO Last administered on 11/06/18 09:27; Admin Dose 3.125 MG; Start 11/01/18 at 21:00 Phenylephrine HCl 40 mg/Dextrose 250 ml @ 37.5 mls/hr TITRATE IV Last administered on 11/02/18 09:05; Admin Dose 11.25 MLS/HR; Start 11/01/18 at 13:30 IV Flush (NS 10 ml) 10 ml PRN PRN IV IV PROTOCOL; Start 11/01/18 at 16:30 Collagenase (Santyl) 1 applic DAILY TOP Last administered on 11/06/18 09:30; Admin Dose 1 APPLIC; Start 11/01/18 at 19:30 Norepinephrine 32 mg/Dextrose 250 ml @ 0.47 mls/hr TITRATE IV Last adminis tered on 11/02/18 12:15; Admin Dose 0.47 MLS/HR; Start 11/02/18 at 11:30 Midodrine (Proamatine) 5 mg TID@,,17 GTB Last administered on 11/05/18 17:05; Admin Dose 5 MG; Start 11/03/18 at 09:00 Guaifenesin (Robitussin Liquid Cup) 100 mg Q4H PRN PO COUGH Last administered on 11/05/18 20:31; Admin Dose 100 MG; Start 11/03/18 at 12:00 Hydrocortisone (Cortef) 20 mg QAM PEG Last administered on 11/06/18at 09:27; Admin Dose 20 MG; Start 11/04/18 at 09:00 Hydrocortisone (Cortef) 20 mg AC DINNER PEG Last administered on 11/05/18at 17:05; Admin Dose 20 MG; Start 11/04/18 at 17:05 Hydrocortisone (Cortef) 20 mg HS PEG Last administered on 11/05/18at 20:33; Admin Dose 20 MG; Start 11/03/18 at 22:45 BHAVIK RUBIO MD Nov 06, 2018 14:38
--- NOTE | 2018-11-06 16:28 | CONS ---
[facility] HCIS Consult Follow-up Patient Name: Armand Quiroga Unit Number: [id number] Date of : 1965 Patient Status: Admitted Inpatient Attending Doctor: Nola Vidal MD Edit: NEMO NEVAREZ M.D. on 11/07/18 @ 02:01 Roque: I discussed the management with ACTIVITY LEADER Luis Alberto and agree with her Assessment/Plan Assessment/Plan Hospital Course (Demo Recall) # sepsis, respiratory - recurrent sepsis on 10/08/2018 due to aspiration pneumonia, HCAP, improved - possible aspiration pneumonia, recurrent pneumonia due to Citrobacter, improved - acute on chronic hypoxic and hypercarbic respiratory failure - persistent leukocytosis likely due to steroid margination - h/o tracheostomy on 08/26/2018 - h/o "Increased mild left apical pneumothorax" per CXR on 09/19/2018; no pneumothorax mentioned on subsequent CXR - h/o pneumomediastinum - h/o VAT on 08/11/2018 - h/o asthma/COPD exacerbation - h/o acute tracheobronchitis - h/o MAC infection but CT chest did not demonstrate features suggestive of this per chart review - On this admission AFB smear x3 have been negative (10/21/18 0600, 10/21/18 1530, and 10/22/18 0040), pneumocystis jiroveci 10/18/18 not detected. Coccioides screen negative. TB Quant Gold neg. - h/o HCAP due to citrobacter, based on resp culture on 09/13/2018 - h/o aspergillus growing out of resp culture per (pulm note by Dr. Lopez) on 07/25/2018 - h/o elevated 1,3 [id number] level = 232 on 08/06/2018 - h/o MSSA septicemia # GI - diarrhea, C diff on 10/09/2018 was negative - h/o HSV esophagitis, took acyclovir x21 days from 08/26/2018 - h/o EGD, esophageal biopsy showed esophageal squamous mucosa showing acute inflammation, granulation tissue, and ulceration consistent with ulcerative esophagitis, rare multinucleated cells with morphology suggestive of vial cytopathic changes, No cardiac mucosa, intestinal metaplasia, dysplasia, or malignancy defined - GERD - PUD # renal/ - Hypokalemia, recurrent - CKD 2 - BPH # cardiac - tachycardia, persistent - Acute on chronic anemia requiring PRBC - HTN - HLD # endo - T2DM - Hgb A1c 7.2% - secondary adrenal insufficiency; steroid dependent - Hypoparathyroidism - Hypercalcemia - Pamidronate was ordered # neuro - toxic metabolic encephalopathy - Cervical myopathy - Severe cervical spinal cord stenosis with cord compression from C3-C5, s/p laminectomy in ~03/2018 - Chronic pain syndrome - Functional quadriplegia - Seizure d/o - Anxiety # other chronic conditions - RA with chronic steroid dependence - Immunocompromised status - Fibromyalgia - DDD - H/o multiple rib fracture - Pt completed: meropenem (09/25/2018-10/02/2018), vancomycin (09/25/18-09/28/18), pip/tazo (10/09/2018-10/15/2018) - DNR status Recommendations: - Pending: AFB culture x3 to r/o mycobacterium avium intracellulaire (AFB smear x3 have resulted negative) - Continue Bactrim for pneumocystis PPX - Continue to monitor off other systemic antibiotic Management d/w ARIANNA Laguerre and with Dr. Nevarez Thank you Critical care time spent: 40 minutes. Consultation Date/Type/Reason Admit Date/Time Oct 09, 2018 at 12:16 Initial Consult Date 10/12/18 Type of Consult ID Requesting Provider: NOLA VIDAL MD Date/Time of Note DATE: 11/06/18 TIME: 16:27 24 HR Interval Summary Free Text/Dictation No changes per d/w ARIANNA Laguerre. Patient has remained afebrile. Still c/o pain. Patient mouthed "pain" to me when I asked ROS questions. Exam/Review of Systems Exam Vitals Vital Signs Date Temp Pulse Resp B/P (MAP) Pulse Ox O2 O2 Flow FiO2 Time Delivery Rate 11/06/18 132 16:22 11/06/18 29 90 70 15:47 11/06/18 99.1 08:48 11/06/18 126/93 08:00 (104) 11/06/18 Mechanical 06:00 Ventilator Intake and Output 11/05/18 11/05/18 11/06/18 1515:00 23:00 07:00 IntakeIntake Total 470 ml 290 ml 370 ml OutputOutput Total 445 ml 80 ml 1350 ml BalanceBalance 25 ml 210 ml -980 ml Allergies Coded Allergies No Known Allergy (Unverified11/03/18) Exam Constitutional: non-verbal, frail, other (awake) Psych: other (mouths "pain" over and over to me - I alerted nsg) Head: normocephalic, atraumatic Eyes: nl conjunctiva, nl lids, nl sclera ENMT: nl external ears & nose, nl nasal mucosa & septum, mucosa pink and moist (OP exam limited) Neck: supple, non-tender, other (trach site is midline, site c/d/i, on vent, fio2 75%) Respiratory: normal air movement, diminished breath sounds Cardiovascular: regular rate and rhythm, nl pulses, other (RUE PICC site is c/d/i) Gastrointestinal: soft, non-tender, other (GT site is c/d/i, rectal tube in place with liquid stool draining) Male Genitourinary: other (condom catheter in place) Musculoskeletal: nl extremities to inspection Extremities: normal pulses Neurological: lethargic, other (lethargic currently) Skin: nl turgor, other (stage II coccygeal ulcer); No rash or lesions Results Result Diagram: 11/06/18 0450 11/06/18 0450 Results 24hrs Laboratory Tests Test 11/05/18 20:51 11/06/18 01:37 11/06/18 04:50 11/06/18 05:00 Bedside Glucose 131 144 White Blood Count 13.8 H Red Blood Count 3.23 L Hemoglobin 9.4 L Hematocrit 31.1 L Mean Corpuscular 96.3 Volume Mean Corpuscular 29.1 Hemoglobin Mean Corpuscular 30.2 L Hemoglobin Concen t Red Cell 16.5 H Distribution Width Platelet Count 173 Mean Platelet 11.2 H Volume Immature 1.000 H Granulocytes % Neutrophils % 77.4 H Lymphocytes % 4.5 L Monocytes % 8.7 Eosinophils % 8.0 H Basophils % 0.4 Nucleated Red 0.0 Blood Cells % Immature 0.140 H Granulocytes # Neutrophils # 10.7 H Lymphocytes # 0.6 L Monocytes # 1.2 H Eosinophils # 1.1 H Basophils # 0.1 Nucleated Red 0.0 Blood Cells # Sodium Level 139 Potassium Level 4.3 Chloride Level 98 Carbon Dioxide 39 H Level Anion Gap 2 L Blood Urea 20 Nitrogen Creatinine 0.23 L Est Glomerular > 60 Filtrat Rate mL/min Glucose Level 114 Lactic Acid Level 1.3 Calcium Level 6.9 L Blood Gas Blood arterial Specimen Source Arterial Blood 11/06/2018 4:40:4 Date Drawn 0 AM Arterial Blood pH 7.362 (Temp corrected) Arterial Blood 72.2 H pCO2 (Temp correct) Arterial Blood 89.5 pO2 (Temp corrected) Arterial Blood 40.1 *H HCO3 Arterial Blood 12.3 H Base Excess Arterial Blood 96.3 Oxygen Saturation [place] Test ACCEPTAB Arterial Blood Right Radial Gas Puncture Site Arterial 1.2 Blood Carboxyhemo globin Arterial Blood 0.5 Methemoglobin Blood Gas A-a O2 332.0 H Differential Oxyhemoglobin 94.7 Percent Blood Gas 37.0 Temperature Blood Gas 20.0 Respiration Rate Blood Gas Actual 23 Respiration Rate Blood Gas VENT - PC Modality FiO2 70.0 Blood Gas High 28.0 PEEP Setting Blood Gas Low 8.0 PEEP Setting Blood Gas GRACIE KELLER Critical Value Read Back Blood Gas MA Notified Whom Blood Gas 11/06/2018 5:17:5 Notified Time 0 AM Test 11/06/18 08:27 11/06/18 13:46 Bedside Glucose 93 123 Imaging Imaging CXR 11/06/18 IMPRESSION: 1. Tubes and lines remain in position. 2. The heart remains enlarged. 3. Diffuse bilateral infiltrates are again seen. There may be slight improve ment in aeration to the lower lobes bilaterally. 4. Small bilateral pleural effusions are again seen. Medications Medication Current Medications Acetaminophen (Tylenol Liquid) 650 mg Q4H PRN GTB MILD PAIN(1-3)OR ELEVATED TEMP Last administered on 11/05/18at 23:55; Admin Dose 650 MG; Start 10/09/18 at 14:00 Al Hydrox/Mg Hydrox/Simethicone (Mag-Al Plus) 15 ml Q6H PRN PO GASTROINTESTINAL UPSET Last administered on 10/17/18 13:18; Admin Dose 15 ML; Start 10/09/18 at 14:00 Eye Lubricant (Artificial Tears Oph) 1 drop Q6H PRN BOTH EYES DRY EYES Last administered on 11/03/18 09:33; Admin Dose 1 DROP; Start 10/09/18 at 14:00 Bisacodyl (Dulcolax Supp) 10 mg DAILY PRN [place] CONSTIPATION; Start 10/09/18 at 14:00 Clonidine (Catapres) 0.1 mg DAILY PRN GTB ELEVATED BLOOD PRESSURE; Start 10/09/18 at 14:00 Diltiazem HCl (Cardizem Iv) 5 mg Q4 PRN IV ELEVATED HEART RATE Last administered on 10/18/18 01:09; Admin Dose 5 MG; Start 10/09/18 at 14:00 Diphenhydramine HCl (Benadryl Liquid Cup) 25 mg Q6 PRN GTB ITCHING Last administered on 10/22/18 20:25; Admin Dose 25 MG; Start 10/09/18 at 14:00 Duloxetine HCl (Cymbalta) 30 mg DAILY PO Last administered on 11/06/18 09:28; Admin Dose 30 MG; Start 10/10/18 at 09:00 Gabapentin (Neurontin Liquid) 400 mg Q8 GTB Last administered on 11/06/18 15:50; Admin Dose 400 MG; Start 10/09/18 at 15:30 Hydralazine HCl (Apresoline) 10 mg Q4H PRN IV ELEVATED BLOOD PRESSURE; Start 10/09/18 at 14:00 Hydroxychloroquine Sulfate (Plaquenil) 200 mg BID PO Last administered on 11/06/18 09:28; Admin Dose 200 MG; Start 10/09/18 at 21:00 Diagnostic Test (Pha) (Accu-Chek) 1 ea 02 XX Last administered on 11/04/18 02:27; Admin Dose 1 EA; Start 10/10/18 at 02:00 Insulin Aspart (Novolog Insulin Pen) NOVOLOG *CUSTOM* ALGORITHM Q6H SC Last administered on 11/03/18 02:36; Admin Dose 1 UNIT; Start 10/09/18 at 14:00 Lactobacillus Acidophilus (Florajen3 Capsule) 1 each BID GTB Last administered on 11/06/18 09:24; Admin Dose 1 EACH; Start 10/09/18 at 21:00 Lansoprazole (Prevacid) 30 mg BID@,18 GTB Last administered on 11/06/18 06:14; Admin Dose 30 MG; Start 10/09/18 at 18:00 Levetiracetam (Keppra Liquid) 500 mg BID GTB Last administered on 11/06/18 09:25; Admin Dose 500 MG; Start 10/09/18 at 21:00 Magnesium Oxide (Mag-Ox 400) 400 mg BID GTB Last administered on 11/06/18 09:25; Admin Dose 400 MG; Start 10/09/18 at 21:00 Metoclopramide HCl (Reglan) 10 mg TID IV Last administered on 11/06/18 12:15; Admin Dose 10 MG; Start 10/09/18 at 21:00 Miconazole Nitrate (Miconazole 2% Cr) 1 applic BID TOP Last administered on 11/06/18 09:29; Admin Dose 1 APPLIC; Start 10/09/18 at 21:00 Miconazole Nitrate (Miconazole 2% Cr) 1 applic Q12 PRN TOP rash; Start 10/09/18 at 14:00 Ondansetron HCl (Zofran Inj) 4 mg Q4H PRN IV NAUSEA AND/OR VOMITING Last administered on 10/19/18 16:37; Admin Dose 4 MG; Start 10/09/18 at 14:00 Polyethylene Glycol (Miralax) 17 gm DAILY PRN GTB CONSTIPATION; Start 10/09/18 at 14:00 Senna (Senokot) 2 tab Q8 PRN PO CONSTIPATION; Start 10/09/18 at 14:00 Trimethoprim/ Sulfamethoxazole (Bactrim Susp) 40 ml DAILY GTB Last administered on 11/06/18 09:23; Admin Dose 40 ML; Start 10/10/18 at 09:00 Zolpidem Tartrate (Ambien) 5 mg HS PRN PO INSOMNIA Last administered on 11/03/18 01:16; Admin Dose 5 MG; Start 10/09/18 at 14:00 Miscellaneous Information 1 ea NOTE XX ; Start 10/09/18 at 15:00 Glucose (Glutose) 15 gm Q15M PRN PO DECREASED GLUCOSE; Start 10/09/18 at 15:00 Glucose (Glutose) 22.5 gm Q15M PRN PO DECREASED GLUCOSE; Start 10/09/18 at 15:00 Dextrose (D50w Syringe) 25 ml Q15M PRN IV DECREASED GLUCOSE; Start 10/09/18 at 15:00 Dextrose (D50w Syringe) 50 ml Q15M PRN IV DECREASED GLUCOSE; Start 10/09/18 at 15:00 Glucagon (Glucagen) 1 mg Q15M PRN IM DECREASED GLUCOSE; Start 10/09/18 at 15:00 Glucose (Glutose) 15 gm Q15M PRN BUCCAL DECREASED GLUCOSE; Start 10/09/18 at 15:00 Sodium Chloride 500 ml @ 500 mls/hr Q1H PRN IV BLOOD PRESSURE SUPPORT Last ad ministered on 10/31/18 03:35; Admin Dose 500 MLS/HR; Start 10/09/18 at 19:30 Albuterol (Ventolin Hfa) 4 puff Q6H RESP THERAPY INH Last administered on 11/06/18 14:05; Admin Dose 4 PUFF; Start 10/10/18 at 02:00 Ipratropium [place] (Atrovent Hfa) 4 puff Q6H RESP THERAPY INH Last administered on 11/06/18 14:05; Admin Dose 4 PUFF; Start 10/10/18 at 02:00 Lorazepam (Ativan) 1 mg Q4H PRN GTB AGITATION/ANXIETY Last administered on 11/05/18 20:35; Admin Dose 1 MG; Start 10/14/18 at 13:00 Linagliptin (Tradjenta) 5 mg DAILY PO Last administered on 11/06/18 09:29; Admin Dose 5 MG; Start 10/16/18 at 10:30 Fentanyl (Duragesic 50 Mcg/Hr Patch) 1 patch Q72H TRANSDERM Last administered on 11/04/18 20:57; Admin Dose 1 PATCH; Start 10/17/18 at 20:30 Lorazepam (Ativan) 2 mg Q6H GTB Last administered on 11/06/18 15:50; Admin Dose 2 MG; Start 10/20/18 at 15:00 Quetiapine Fumarate (Seroquel) 100 mg BID GTB Last administered on 11/06/18 09:26; Admin Dose 100 MG; Start 10/21/18 at 21:00 Hydromorphone HCl (Dilaudid) 6 mg Q4H PRN PO MODERATE PAIN LEVEL 7-10 Last administered on 11/06/18 12:15; Admin Dose 6 MG; Start 10/21/18 at 22:00 Calcium Carbonate (Ca Carbonate) 1,250 mg QID GTB Last administered on 11/06/18 12:22; Admin Dose 1,250 MG; Start 10/24/18 at 13:00 Calcitriol (Rocaltrol) 1 mcg BID PO Last administered on 11/06/18 09:28; Admin Dose 1 MCG; Start 10/28/18 at 09:00 Metoprolol Tartrate (Lopressor) 5 mg Q4H PRN IV HR>110 Hold SBP<100 Last administered on 11/06/18 16:17; Admin Dose 5 MG; Start 10/28/18 at 12:30 Carvedilol (Coreg) 3.125 mg BID PO Last administered on 11/06/18 09:27; Admin Dose 3.125 MG; Start 11/01/18 at 21:00 Phenylephrine HCl 40 mg/Dextrose 250 ml @ 37.5 mls/hr TITRATE IV Last administered on 11/02/18 09:05; Admin Dose 11.25 MLS/HR; Start 11/01/18 at 13:30 IV Flush (NS 10 ml) 10 ml PRN PRN IV IV PROTOCOL; Start 11/01/18 at 16:30 Collagenase (Santyl) 1 applic DAILY TOP Last administered on 11/06/18 09:30; Admin Dose 1 APPLIC; Start 11/01/18 at 19:30 Norepinephrine 32 mg/Dextrose 250 ml @ 0.47 mls/hr TITRATE IV Last administered on 11/02/18 12:15; Admin Dose 0.47 MLS/HR; Start 11/02/18 at 11:30 Midodrine (Proamatine) 5 mg TID@,,17 GTB Last administered on 11/05/18 17:05; Admin Dose 5 MG; Start 11/03/18 at 09:00 Guaifenesin (Robitussin Liquid Cup) 100 mg Q4H PRN PO COUGH Last administered on 11/05/18 20:31; Admin Dose 100 MG; Start 11/03/18 at 12:00 Hydrocortisone (Cortef) 20 mg QAM PEG Last administered on 11/06/18at 09:27; Admin Dose 20 MG; Start 11/04/18 at 09:00 Hydrocortisone (Cortef) 20 mg AC DINNER PEG Last administered on 11/05/18at 17:05; Admin Dose 20 MG; Start 11/04/18 at 17:05 Hydrocortisone (Cortef) 20 mg HS PEG Last administered on 11/05/18at 20:33; Admin Dose 20 MG; Start 11/03/18 at 22:45 STEVE MOSCOSO NP Nov 06, 2018 16:28
[2018-11-06] MEDS: DILTIAZEM 25 MG INJ IV PRN (18:47)
[2018-11-07] VITALS (37 sets, daily range): BP systolic 98–158; BP diastolic 65–109; PULSE 105–129; RESP 19–31
[2018-11-07] MEDS: ALBUTEROL HFA 8 GM INHALER INH SCH ×4 (01:02→19:36)
[2018-11-07] MEDS: IPRATROPIUM (HFA) 12.9 GM INHALER INH SCH ×4 (01:02→19:36)
[2018-11-07] MEDS: ACCU-CHEK XX SCH (02:00)
[2018-11-07] MEDS: INSULIN ASPART [NOVOLOG] 3 ML PEN SC SCH ×4 (02:00→20:00)
[2018-11-07] MEDS: HYDROmorphONE 2 MG TAB PO PRN ×3 (05:21→18:38)
[2018-11-07] MEDS: LANSOPRAZOLE 30 MG CAP GTB SCH ×2 (05:21→18:38)
[2018-11-07] MEDS: LORAZEPAM 1 MG TAB GTB SCH ×5 (05:22→20:13)
[2018-11-07] MEDS: GABAPENTIN (50 MG/ML PO SYG) GTB SCH ×2 (05:22→13:45)
[2018-11-07] MEDS: CALCITRIOL 0.5 MCG CAPSULE PO SCH ×3 (05:22→20:12)
[2018-11-07] MEDS: LEVETIRACETAM (100 MG/ML) 5ML CUP GTB SCH ×2 (08:29→20:12)
[2018-11-07] MEDS: DULOXETINE 30 MG CAP DR PO SCH (08:29)
[2018-11-07] MEDS: CA CARBONATE (250 MG/ML) 5ML CUP GTB SCH ×4 (08:30→20:12)
[2018-11-07] MEDS: LINAGLIPTIN 5 MG TABLET PO SCH (08:30)
[2018-11-07] MEDS: MAGNESIUM OXIDE 400 MG TAB GTB SCH ×2 (08:31→20:13)
[2018-11-07] MEDS: HYDROCORTISONE 20 MG TAB PEG SCH ×3 (08:31→20:12)
[2018-11-07] MEDS: QUETIAPINE 100 MG TAB GTB SCH ×2 (08:33→20:13)
[2018-11-07] MEDS: HYDROXYCHLOROQUINE 200 MG TAB PO SCH ×2 (08:33→20:13)
[2018-11-07] MEDS: METOCLOPRAMIDE 10 MG INJ IV SCH ×3 (08:34→20:12)
[2018-11-07] MEDS: TRIMETHOPRIM/SULFAMETHOX (PO SYG) GTB SCH (08:35)
--- NOTE | 2018-11-07 08:44 | CONS ---
Assessment/Plan Assessment/Plan Hospital Course (Demo Recall) 53 yo male pt in [place] transferred to ICU for increased O2 demands Interval History-FiO2 60% and has episodes of desaturation. Ativan PO and dilaudid PO around the clock for anxiety. Brown/green stool. 1. Respiratory failure secondary to pneumonia versus interstitial pneumonitis from rheumatoid arthritis versus mild aspiration. -on Bactrim 2. Severe rheumatoid arthritis. 3. Quadriplegia. 4. Adrenal insufficiency. 5. Gastroparesis. -Reglan, denies nausea 6. Hypothyroidism. 7. Chronic pain syndrome. 8. Hypertension. 9. 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 Leukocytosis secondary to steroids 11.ARDS 12. Anxiety -on PO ativan PLAN: Re check FOB Continue supportive ICU care Nothing by mouth per swallow eval results Continue with tube feeds check residuals q 4 hours Continue Reglan. Aspiration precautions. So far there is no evidence of aspiration. If anytime there is evidence of aspiration will convert G-tube to J-tube Pt examined and plan of care discussed with Dr. Minaya Consultation Date/Type/Reason Admit Date/Time Oct 09, 2018 at 12:16 Initial Consult Date 10/09/18 Requesting Provider: NOLA VIDAL MD Date/Time of Note DATE: 11/07/18 TIME: 08:42 Exam/Review of Systems Exam Vitals Vital Signs Date Temp Pulse Resp B/P (MAP) Pulse Ox O2 O2 Flow FiO2 Time Delivery Rate 11/07/18 99.1 08:00 11/07/18 118 23 124/86 96 Mechanical 08:00 (99) Ventilator 11/07/18 70 04:55 Intake and Output 11/06/18 11/06/18 11/07/18 1515:00 23:00 07:00 IntakeIntake Total 490 ml 320 ml 480 ml OutputOutput Total 1473 ml 795 ml 540 ml BalanceBalance -983 ml -475 ml -60 ml Constitutional: alert, oriented Psych: no complaints Head: normocephalic Eyes: PERRL ENMT: mucosa pink and moist Respiratory: clear to auscultation, diminished breath sounds Cardiovascular: regular rate and rhythm Gastrointestinal: soft, non-tender Neurological: nl mental status Results Result Diagram: 11/07/18 0500 11/07/18 0500 Results 24hrs Laboratory Tests Test 11/06/18 13:46 11/06/18 21:14 11/07/18 05:00 11/07/18 08:27 Bedside Glucose 123 145 103 White Blood Count 14.5 H Red Blood Count 3.44 L Hemoglobin 9.9 L Hematocrit 32.8 L Mean Corpuscular 95.3 Volume Mean Corpuscular 28.8 L Hemoglobin Mean Corpuscular 30.2 L Hemoglobin Concent Red Cell 16.4 H Distribution Width Platelet Count 197 Mean Platelet Volume 11.4 H Immature 1.000 H Granulocytes % Neutrophils % 75.9 Lymphocytes % 5.1 L Monocytes % 7.5 Eosinophils % 10.0 H Basophils % 0.5 Nucleated Red Blood 0.0 Cells % Immature 0.150 H Granulocytes # Neutrophils # 11.0 H Lymphocytes # 0.7 L Monocytes # 1.1 H Eosinophils # 1.4 H Basophils # 0.1 Nucleated Red Blood 0.0 Cells # Sodium Level 140 Potassium Level 3.5 Chloride Level 94 L Carbon Dioxide Level Pending Anion Gap Pending Blood Urea Nitrogen 21 H Creatinine 0.28 L Est Glomerular > 60 Filtrat Rate mL/min Glucose Level 122 Calcium Level 6.7 L Phosphorus Level 3.5 Magnesium Level 1.7 Medications Medication Current Medications Acetaminophen (Tylenol Liquid) 650 mg Q4H PRN GTB MILD PAIN(1-3)OR ELEVATED TEMP Last administered on 11/05/18at 23:55; Admin Dose 650 MG; Start 10/09/18 at 14:00 Al Hydrox/Mg Hydrox/Simethicone (Mag-Al Plus) 15 ml Q6H PRN PO GASTROINTESTINAL UPSET Last administered on 10/17/18at 13:18; Admin Dose 15 ML; Start 10/09/18 at 14:00 Eye Lubricant (Artificial Tears Oph) 1 drop Q6H PRN BOTH EYES DRY EYES Last administered on 11/03/18at 09:33; Admin Dose 1 DROP; Start 10/09/18 at 14:00 Bisacodyl (Dulcolax Supp) 10 mg DAILY PRN [place] CONSTIPATION; Start 10/09/18 at 14:00 Clonidine (Catapres) 0.1 mg DAILY PRN GTB ELEVATED BLOOD PRESSURE; Start 10/09/18 at 14:00 Diltiazem HCl (Cardizem Iv) 5 mg Q4 PRN IV ELEVATED HEART RATE Last administered on 11/06/18 18:47; Admin Dose 5 MG; Start 10/09/18 at 14:00 Diphenhydramine HCl (Benadryl Liquid Cup) 25 mg Q6 PRN GTB ITCHING Last administered on 10/22/18 20:25; Admin Dose 25 MG; Start 10/09/18 at 14:00 Duloxetine HCl (Cymbalta) 30 mg DAILY PO Last administered on 11/07/18 08:29; Admin Dose 30 MG; Start 10/10/18 at 09:00 Gabapentin (Neurontin Liquid) 400 mg Q8 GTB Last administered on 11/07/18 05:22; Admin Dose 400 MG; Start 10/09/18 at 15:30 Hydralazine HCl (Apresoline) 10 mg Q4H PRN IV ELEVATED BLOOD PRESSURE; Start 10/09/18 at 14:00 Hydroxychloroquine Sulfate (Plaquenil) 200 mg BID PO Last administered on 11/07/18 08:33; Admin Dose 200 MG; Start 10/09/18 at 21:00 Diagnostic Test (Pha) (Accu-Chek) 1 ea 02 XX Last administered on 11/04/18 02:27; Admin Dose 1 EA; Start 10/10/18 at 02:00 Insulin Aspart (Novolog Insulin Pen) NOVOLOG *CUSTOM* ALGORITHM Q6H SC Last administered on 11/03/18 02:36; Admin Dose 1 UNIT; Start 10/09/18 at 14:00 Lactobacillus Acidophilus (Florajen3 Capsule) 1 each BID GTB Last administered on 11/06/18 21:15; Admin Dose 1 EACH; Start 10/09/18 at 21:00 Lansoprazole (Prevacid) 30 mg BID@06,18 GTB Last administered on 11/07/18 05:21; Admin Dose 30 MG; Start 10/09/18 at 18:00 Levetiracetam (Keppra Liquid) 500 mg BID GTB Last administered on 11/07/18 08:29; Admin Dose 500 MG; Start 10/09/18 at 21:00 Magnesium Oxide (Mag-Ox 400) 400 mg BID GTB Last administered on 11/07/18 08:31; Admin Dose 400 MG; Start 10/09/18 at 21:00 Metoclopramide HCl (Reglan) 10 mg TID IV Last administered on 11/07/18at 08:34; Admin Dose 10 MG; Start 10/09/18 at 21:00 Miconazole Nitrate (Miconazole 2% Cr) 1 applic BID TOP Last administered on 11/06/18at 21:01; Admin Dose 1 APPLIC; Start 10/09/18 at 21:00 Miconazole Nitrate (Miconazole 2% Cr) 1 applic Q12 PRN TOP rash; Start 10/09/18 at 14:00 Ondansetron HCl (Zofran Inj) 4 mg Q4H PRN IV NAUSEA AND/OR VOMITING Last administered on 10/19/18at 16:37; Admin Dose 4 MG; Start 10/09/18 at 14:00 Polyethylene Glycol (Miralax) 17 gm DAILY PRN GTB CONSTIPATION; Start 10/09/18 at 14:00 Senna (Senokot) 2 tab Q8 PRN PO CONSTIPATION; Start 10/09/18 at 14:00 Trimethoprim/ Sulfamethoxazole (Bactrim Susp) 40 ml DAILY GTB Last administered on 11/07/18at 08:35; Admin Dose 40 ML; Start 10/10/18 at 09:00 Zolpidem Tartrate (Ambien) 5 mg HS PRN PO INSOMNIA Last administered on 11/03/18at 01:16; Admin Dose 5 MG; Start 10/09/18 at 14:00 Miscellaneous Information 1 ea NOTE XX ; Start 10/09/18 at 15:00 Glucose (Glutose) 15 gm Q15M PRN PO DECREASED GLUCOSE; Start 10/09/18 at 15:00 Glucose (Glutose) 22.5 gm Q15M PRN PO DECREASED GLUCOSE; Start 10/09/18 at 15:00 Dextrose (D50w Syringe) 25 ml Q15M PRN IV DECREASED GLUCOSE; Start 10/09/18 at 15:00 Dextrose (D50w Syringe) 50 ml Q15M PRN IV DECREASED GLUCOSE; Start 10/09/18 at 15:00 Glucagon (Glucagen) 1 mg Q15M PRN IM DECREASED GLUCOSE; Start 10/09/18 at 15:00 Glucose (Glutose) 15 gm Q15M PRN BUCCAL DECREASED GLUCOSE; Start 10/09/18 at 15:00 Sodium Chloride 500 ml @ 500 mls/hr Q1H PRN IV BLOOD PRESSURE SUPPORT Last administered on 10/31/18 03:35; Admin Dose 500 MLS/HR; Start 10/09/18 at 19:30 Albuterol (Ventolin Hfa) 4 puff Q6H RESP THERAPY INH Last administered on 11/07/18 07:58; Admin Dose 4 PUFF; Start 10/10/18 at 02:00 Ipratropium [place] (Atrovent Hfa) 4 puff Q6H RESP THERAPY INH Last ad ministered on 11/07/18 07:58; Admin Dose 4 PUFF; Start 10/10/18 at 02:00 Lorazepam (Ativan) 1 mg Q4H PRN GTB AGITATION/ANXIETY Last administered on 11/05/18 20:35; Admin Dose 1 MG; Start 10/14/18 at 13:00 Linagliptin (Tradjenta) 5 mg DAILY PO Last administered on 11/07/18 08:30; Admin Dose 5 MG; Start 10/16/18 at 10:30 Fentanyl (Duragesic 50 Mcg/Hr Patch) 1 patch Q72H TRANSDERM Last administered on 11/04/18 20:57; Admin Dose 1 PATCH; Start 10/17/18 at 20:30 Lorazepam (Ativan) 2 mg Q6H GTB Last administered on 11/07/18 05:22; Admin Dose 2 MG; Start 10/20/18 at 15:00 Quetiapine Fumarate (Seroquel) 100 mg BID GTB Last administered on 11/07/18 08:33; Admin Dose 100 MG; Start 10/21/18 at 21:00 Hydromorphone HCl (Dilaudid) 6 mg Q4H PRN PO MODERATE PAIN LEVEL 7-10 Last administered on 11/07/18 05:21; Admin Dose 6 MG; Start 10/21/18 at 22:00 Calcium Carbonate (Ca Carbonate) 1,250 mg QID GTB Last administered on 11/07/18 08:30; Admin Dose 1,250 MG; Start 10/24/18 at 13:00 Calcitriol (Rocaltrol) 1 mcg BID PO Last administered on 11/07/18 08:31; Admin Dose 1 MCG; Start 10/28/18 at 09:00 Metoprolol Tartrate (Lopressor) 5 mg Q4H PRN IV HR>110 Hold SBP<100 Last administered on 11/06/18 16:17; Admin Dose 5 MG; Start 10/28/18 at 12:30 Carvedilol (Coreg) 3.125 mg BID PO Last administered on 11/07/18 08:33; Admin Dose 3.125 MG; Start 11/01/18 at 21:00 Phenylephrine HCl 40 mg/Dextrose 250 ml @ 37.5 mls/hr TITRATE IV Last administered on 11/02/18 09:05; Admin Dose 11.25 MLS/HR; Start 11/01/18 at 13:30 IV Flush (NS 10 ml) 10 ml PRN PRN IV IV PROTOCOL; Start 11/01/18 at 16:30 Collagenase (Santyl) 1 applic DAILY TOP Last administered on 11/06/18 09:30; Admin Dose 1 APPLIC; Start 11/01/18 at 19:30 Norepinephrine 32 mg/Dextrose 250 ml @ 0.47 mls/hr TITRATE IV Last adminis tered on 11/02/18 12:15; Admin Dose 0.47 MLS/HR; Start 11/02/18 at 11:30 Midodrine (Proamatine) 5 mg TID@,13,17 GTB Last administered on 11/05/18 17:05; Admin Dose 5 MG; Start 11/03/18 at 09:00 Guaifenesin (Robitussin Liquid Cup) 100 mg Q4H PRN PO COUGH Last administered on 11/05/18 20:31; Admin Dose 100 MG; Start 11/03/18 at 12:00 Hydrocortisone (Cortef) 20 mg QAM PEG Last administered on 11/07/18 08:31; Admin Dose 20 MG; Start 11/04/18 at 09:00 Hydrocortisone (Cortef) 20 mg AC DINNER PEG Last administered on 11/06/18 17:16; Admin Dose 20 MG; Start 11/04/18 at 17:05 Hydrocortisone (Cortef) 20 mg HS PEG Last administered on 11/06/18 20:59; Admin Dose 20 MG; Start 11/03/18 at 22:45 MARYANN HACKETT Nov 07, 2018 08:44
--- NOTE | 2018-11-07 08:49 | PN ---
DATE: 11/07/2018 SUBJECTIVE: The patient is stable. No events overnight. OBJECTIVE: VITAL SIGNS: Blood pressure is 124/86, respirations 23, pulse 118, temperature 98.7. HEENT: Head is normocephalic. NECK: Supple. HEART: Regular rate. LUNGS: Show diminished breath sounds at the base. ABDOMEN: Soft, nontender to palpation without rebound or guarding. EXTREMITIES: Negative for clubbing, cyanosis, no edema. DERMATOLOGIC: No rashes. MUSCULOSKELETAL: No joint effusion. NEUROLOGIC: No change in exam. MEDICATIONS: The patient's medications have been reviewed. LABORATORY DATA: The laboratory data has been reviewed. ASSESSMENT AND PLAN: 1. Nonoliguric acute kidney injury with previously normal baseline creatinine. Etiology of acute ki dney injury is secondary to hemodynamics. Renal function is improved. Continue to monitor. 2. Volume overload, improved. Give intermittent diuretic therapy as needed. 3. Ventilator-dependent respiratory failure. Vent settings and ABG was reviewed. Continue to monit or. 4. Adrenal insufficiency. Continue Cortef. 5. Hypotension, improved. The patient is on midodrine. We will continue as tolerated. 6. Dysphagia/PEG tube feeding. 7. Seizure disorder. 8. Anxiety disorder. 9. Hypomagnesemia. Continue to monitor and replete. 10. Mineral bone disorder. Patient is hypocalcemic. Continue vitamin D analogs. 11. Status post shock. Dictated By: UNA ROY DO NR/NTS Conf#: [id number] DID#: [id number] CC: CAMELIA VALENTINE MD; NOLA VIDAL MD;*End*
[2018-11-07] MEDS: MICONAZOLE 2% 30 GM CR TOP SCH ×2 (08:52→20:14)
[2018-11-07] MEDS: L ACIDOPHIL/B LACTIS/B LONGUM CAPSULE GTB SCH ×2 (08:52→20:12)
[2018-11-07] MEDS: MIDODRINE 5 MG TAB GTB SCH ×3 (08:53→17:00)
[2018-11-07] MEDS: BALSAM PERU/CASTOR OIL 60 GM TUBE TOP SCH ×2 (09:00→20:15)
--- NOTE | 2018-11-07 09:34 | CONS ---
Assessment/Plan Assessment/Plan Assessment/Plan (Daily) Ventilator setting; AC of 20, pressure control mode, PEEP of 8, 70% FiO2. Assessment recommendations; 1. Patient admitted with worsening hypoxemia with history of ARDS and tracheostomy. Off antibiotics now. 2. Extremely high airway pressures, requiring pressure control mode of ventilation with persistent severe hypercapnic and hypoxemic respiratory failure. 3. History of seizures. 4. Peripheral neuropathy. 5. History of incomplete quadriplegia. 6. Anxiety and depression. 7. History of hypertension. 8. Anemia and thrombocytopenia. 9. History of cardiac arrhythmia. Continue current supportive care. Prognosis is very poor. Consultation Date/Type/Reason Admit Date/Time Oct 09, 2018 at 12:16 Initial Consult Date 10/12/18 Type of Consult Pulmonary/critical care Patient's condition is stable. Remains completely awake and alert. Has remained hemodynamically stable. Patient also has been switched over to volume control ventilation from pressure-controlled mode. General exam; middle-aged male, on ventilator via tracheostomy, awake and alert. Watching television. Currently in no distress. Area Requesting Provider: NOLA VIDAL MD Date/Time of Note DATE: 11/07/18 TIME: 09:31 24 HR Interval Summary Free Text/Dictation Patient's condition remains tenuous at best. Still requiring high FiO2 on pressure control mode of ventilation. General exam; middle-aged male, on ventilator via tracheostomy, awake and alert. Appropriately communicative. Currently in no distress. Exam/Review of Systems Exam Vitals Vital Signs Date Temp Pulse Resp B/P (MAP) Pulse Ox O2 O2 Flow FiO2 Time Delivery Rate 11/07/18 99.1 08:00 11/07/18 118 23 124/86 96 Mechanical 08:00 (99) Ventilator 11/07/18 70 04:55 Intake and Output 11/06/18 11/06/18 11/07/18 1515:00 23:00 07:00 IntakeIntake Total 490 ml 320 ml 480 ml OutputOutput Total 1473 ml 795 ml 540 ml BalanceBalance -983 ml -475 ml -60 ml Exam HEENT exam; supple neck, no JVD. No lymphadenopathy. Midline trachea. No thyromegaly. Patient is edentulous. Tracheostomy in place. Insertion site is clean. No neck masses. Chest exam; diminished breath sounds throughout with scattered crackles. S1-S2 audible, no murmurs. Regular rhythm. Abdomen exam; soft, nondistended. Nontender. No organomegaly. G-tube in place. Bowel sounds audible. Extremity exam; no peripheral edema. [employer] exam; patient exhibiting stable incomplete quadriplegia. Results Result Diagram: 11/07/18 0500 11/07/18 0500 Results 24hrs Laboratory Tests Test 11/06/18 13:46 11/06/18 21:14 11/07/18 05:00 11/07/18 08:27 Bedside Glucose 123 145 103 White Blood Count 14.5 H Red Blood Count 3.44 L Hemoglobin 9.9 L Hematocrit 32.8 L Mean Corpuscular 95.3 Volume Mean Corpuscular 28.8 L Hemoglobin Mean Corpuscular 30.2 L Hemoglobin Concent Red Cell 16.4 H Distribution Width Platelet Count 197 Mean Platelet Volume 11.4 H Immature 1.000 H Granulocytes % Neutrophils % 75.9 Lymphocytes % 5.1 L Monocytes % 7.5 Eosinophils % 10.0 H Basophils % 0.5 Nucleated Red Blood 0.0 Cells % Immature 0.150 H Granulocytes # Neutrophils # 11.0 H Lymphocytes # 0.7 L Monocytes # 1.1 H Eosinophils # 1.4 H Basophils # 0.1 Nucleated Red Blood 0.0 Cells # Sodium Level 140 Potassium Level 3.5 Chloride Level 94 L Carbon Dioxide Level 37 H Anion Gap 9 # Blood Urea Nitrogen 21 H Creatinine 0.28 L Est Glomerular > 60 Filtrat Rate mL/min Glucose Level 122 Calcium Level 6.7 L Phosphorus Level 3.5 Magnesium Level 1.7 Medications Medication Current Medications Acetaminophen (Tylenol Liquid) 650 mg Q4H PRN GTB MILD PAIN(1-3)OR ELEVATED TEMP Last administered on 11/05/18 23:55; Admin Dose 650 MG; Start 10/09/18 at 14:00 Al Hydrox/Mg Hydrox/Simethicone (Mag-Al Plus) 15 ml Q6H PRN PO GASTROINTESTINAL UPSET Last administered on 10/17/18 13:18; Admin Dose 15 ML; Start 10/09/18 at 14:00 Eye Lubricant (Artificial Tears Oph) 1 drop Q6H PRN BOTH EYES DRY EYES Last administered on 11/03/18 09:33; Admin Dose 1 DROP; Start 10/09/18 at 14:00 Bisacodyl (Dulcolax Supp) 10 mg DAILY PRN [place] CONSTIPATION; Start 10/09/18 at 14:00 Clonidine (Catapres) 0.1 mg DAILY PRN GTB ELEVATED BLOOD PRESSURE; Start 10/09/18 at 14:00 Diltiazem HCl (Cardizem Iv) 5 mg Q4 PRN IV ELEVATED HEART RATE Last administered on 11/06/18 18:47; Admin Dose 5 MG; Start 10/09/18 at 14:00 Diphenhydramine HCl (Benadryl Liquid Cup) 25 mg Q6 PRN GTB ITCHING Last a dministered on 10/22/18 20:25; Admin Dose 25 MG; Start 10/09/18 at 14:00 Duloxetine HCl (Cymbalta) 30 mg DAILY PO Last administered on 11/07/18 08:29; Admin Dose 30 MG; Start 10/10/18 at 09:00 Gabapentin (Neurontin Liquid) 400 mg Q8 GTB Last administered on 11/07/18 05:22; Admin Dose 400 MG; Start 10/09/18 at 15:30 Hydralazine HCl (Apresoline) 10 mg Q4H PRN IV ELEVATED BLOOD PRESSURE; Start 10/09/18 at 14:00 Hydroxychloroquine Sulfate (Plaquenil) 200 mg BID PO Last administered on 11/07/18 08:33; Admin Dose 200 MG; Start 10/09/18 at 21:00 Diagnostic Test (Pha) (Accu-Chek) 1 ea 02 XX Last administered on 11/04/18 02:27; Admin Dose 1 EA; Start 10/10/18 at 02:00 Insulin Aspart (Novolog Insulin Pen) NOVOLOG *CUSTOM* ALGORITHM Q6H SC Last administered on 11/03/18 02:36; Admin Dose 1 UNIT; Start 10/09/18 at 14:00 Lactobacillus Acidophilus (Florajen3 Capsule) 1 each BID GTB Last administered on 11/07/18 08:52; Admin Dose 1 EACH; Start 10/09/18 at 21:00 Lansoprazole (Prevacid) 30 mg BID@06,18 GTB Last administered on 11/07/18 05:21; Admin Dose 30 MG; Start 10/09/18 at 18:00 Levetiracetam (Keppra Liquid) 500 mg BID GTB Last administered on 11/07/18 08:29; Admin Dose 500 MG; Start 10/09/18 at 21:00 Magnesium Oxide (Mag-Ox 400) 400 mg BID GTB Last administered on 11/07/18 08:31; Admin Dose 400 MG; Start 10/09/18 at 21:00 Metoclopramide HCl (Reglan) 10 mg TID IV Last administered on 11/07/18 08:34; Admin Dose 10 MG; Start 10/09/18 at 21:00 Miconazole Nitrate (Miconazole 2% Cr) 1 applic BID TOP Last administered on 11/07/18 08:52; Admin Dose 1 APPLIC; Start 10/09/18 at 21:00 Miconazole Nitrate (Miconazole 2% Cr) 1 applic Q12 PRN TOP rash; Start 10/09/18 at 14:00 Ondansetron HCl (Zofran Inj) 4 mg Q4H PRN IV NAUSEA AND/OR VOMITING Last administered on 10/19/18at 16:37; Admin Dose 4 MG; Start 10/09/18 at 14:00 Polyethylene Glycol (Miralax) 17 gm DAILY PRN GTB CONSTIPATION; Start 10/09/18 at 14:00 Senna (Senokot) 2 tab Q8 PRN PO CONSTIPATION; Start 10/09/18 at 14:00 Trimethoprim/ Sulfamethoxazole (Bactrim Susp) 40 ml DAILY GTB Last administered on 11/07/18at 08:35; Admin Dose 40 ML; Start 10/10/18 at 09:00 Zolpidem Tartrate (Ambien) 5 mg HS PRN PO INSOMNIA Last administered on 11/03/18at 01:16; Admin Dose 5 MG; Start 10/09/18 at 14:00 Miscellaneous Information 1 ea NOTE XX ; Start 10/09/18 at 15:00 Glucose (Glutose) 15 gm Q15M PRN PO DECREASED GLUCOSE; Start 10/09/18 at 15:00 Glucose (Glutose) 22.5 gm Q15M PRN PO DECREASED GLUCOSE; Start 10/09/18 at 15:00 Dextrose (D50w Syringe) 25 ml Q15M PRN IV DECREASED GLUCOSE; Start 10/09/18 at 15:00 Dextrose (D50w Syringe) 50 ml Q15M PRN IV DECREASED GLUCOSE; Start 10/09/18 at 15:00 Glucagon (Glucagen) 1 mg Q15M PRN IM DECREASED GLUCOSE; Start 10/09/18 at 15:00 Glucose (Glutose) 15 gm Q15M PRN BUCCAL DECREASED GLUCOSE; Start 10/09/18 at 15:00 Sodium Chloride 500 ml @ 500 mls/hr Q1H PRN IV BLOOD PRESSURE SUPPORT Last administered on 10/31/18 03:35; Admin Dose 500 MLS/HR; Start 10/09/18 at 19:30 Albuterol (Ventolin Hfa) 4 puff Q6H RESP THERAPY INH Last administered on 11/07/18 07:58; Admin Dose 4 PUFF; Start 10/10/18 at 02:00 Ipratropium [place] (Atrovent Hfa) 4 puff Q6H RESP THERAPY INH Last administered on 11/07/18 07:58; Admin Dose 4 PUFF; Start 10/10/18 at 02:00 Lorazepam (Ativan) 1 mg Q4H PRN GTB AGITATION/ANXIETY Last administered on 11/05/18 20:35; Admin Dose 1 MG; Start 10/14/18 at 13:00 Linagliptin (Tradjenta) 5 mg DAILY PO Last administered on 11/07/18 08:30; Admin Dose 5 MG; Start 10/16/18 at 10:30 Fentanyl (Duragesic 50 Mcg/Hr Patch) 1 patch Q72H TRANSDERM Last administered on 11/04/18 20:57; Admin Dose 1 PATCH; Start 10/17/18 at 20:30 Lorazepam (Ativan) 2 mg Q6H GTB Last administered on 11/07/18 05:22; Admin Dose 2 MG; Start 10/20/18 at 15:00 Quetiapine Fumarate (Seroquel) 100 mg BID GTB Last administered on 11/07/18 08:33; Admin Dose 100 MG; Start 10/21/18 at 21:00 Hydromorphone HCl (Dilaudid) 6 mg Q4H PRN PO MODERATE PAIN LEVEL 7-10 Last administered on 11/07/18 05:21; Admin Dose 6 MG; Start 10/21/18 at 22:00 Calcium Carbonate (Ca Carbonate) 1,250 mg QID GTB Last administered on 11/07/18 08:30; Admin Dose 1,250 MG; Start 10/24/18 at 13:00 Calcitriol (Rocaltrol) 1 mcg BID PO Last administered on 11/07/18 08:31; Admin Dose 1 MCG; Start 10/28/18 at 09:00 Metoprolol Tartrate (Lopressor) 5 mg Q4H PRN IV HR>110 Hold SBP<100 Last administered on 11/06/18 16:17; Admin Dose 5 MG; Start 10/28/18 at 12:30 Carvedilol (Coreg) 3.125 mg BID PO Last administered on 11/07/18 08:33; Admin Dose 3.125 MG; Start 11/01/18 at 21:00 Phenylephrine HCl 40 mg/Dextrose 250 ml @ 37.5 mls/hr TITRATE IV Last administered on 11/02/18 09:05; Admin Dose 11.25 MLS/HR; Start 11/01/18 at 13:30 IV Flush (NS 10 ml) 10 ml PRN PRN IV IV PROTOCOL; Start 11/01/18 at 16:30 Collagenase (Santyl) 1 applic DAILY TOP Last administered on 11/06/18 09:30; Admin Dose 1 APPLIC; Start 11/01/18 at 19:30 Norepinephrine 32 mg/Dextrose 250 ml @ 0.47 mls/hr TITRATE IV Last administered on 11/02/18 12:15; Admin Dose 0.47 MLS/HR; Start 11/02/18 at 11:30 Midodrine (Proamatine) 5 mg TID@,13,17 GTB Last administered on 11/07/18 08:53; Admin Dose 5 MG; Start 11/03/18 at 09:00 Guaifenesin (Robitussin Liquid Cup) 100 mg Q4H PRN PO COUGH Last administered on 11/05/18 20:31; Admin Dose 100 MG; Start 11/03/18 at 12:00 Hydrocortisone (Cortef) 20 mg QAM PEG Last administered on 11/07/18 08:31; Admin Dose 20 MG; Start 11/04/18 at 09:00 Hydrocortisone (Cortef) 20 mg AC DINNER PEG Last administered on 11/06/18 17:16; Admin Dose 20 MG; Start 11/04/18 at 17:05 Hydrocortisone (Cortef) 20 mg HS PEG Last administered on 11/06/18at 20:59; Admin Dose 20 MG; Start 11/03/18 at 22:45 PILAR BERGER Nov 07, 2018 09:34
[2018-11-07] MEDS: COLLAGENASE 5 GM (UD JAR) TOP SCH (09:54)
--- NOTE | 2018-11-07 10:28 | CONS ---
Assessment/Plan Cardiology Heart Failure Type: Acute on Chronic Heart Failure Type: Systolic Assessment/Plan Hospital Course (Demo Recall) IMPRESSION: 1. Tachycardia- S tach. Ongoimg Likley due to anxiety/infection/cardiomyopathy, multifactorial 2. Hypotension-now off pressors with HTN but labile 3. Abnormal electrocardiogram at baseline. 4. Chronic respiratory failure, status post tracheostomy.-weaning vent support 5. Dysphagia, status post G-tube. 6. Quadriplegia. 7. Renal insufficiency, on steroids. 8. Chronic obstructive pulmonary disease. 9. Rheumatoid arthritis. 10. Chronic kidney disease. 11. Diabetes mellitus. 12.Adrenal insufficiency 14. cardiomyopathy-EF 35-40% by echo this admit Recc -ICU -Ongoing Vent support with inability to wean from High percentage FI02 -Continue abx's and f/u cx data -continue steroids -Follow volume status -continue midodrine BP support as necessary -Continue coreg as tolerated -dose digoxin IVP -Now DNR Consultation Date/Type/Reason Admit Date/Time Oct 09, 2018 at 12:16 Initial Consult Date 10/09/18 Type of Consult Cardiology Reason for Consultation tachycardia Requesting Provider: NOLA VIDAL MD Date/Time of Note DATE: 11/07/18 TIME: 10:26 Exam/Review of Systems Vital Signs Vitals Vital Signs Date Temp Pulse Resp B/P (MAP) Pulse Ox O2 O2 Flow FiO2 Time Delivery Rate 11/07/18 99.1 08:00 11/07/18 117 08:00 11/07/18 23 124/86 96 Mechanical 08:00 (99) Ventilator 11/07/18 70 04:55 Intake and Output 11/06/18 11/06/18 11/07/18 1515:00 23:00 07:00 IntakeIntake Total 490 ml 320 ml 480 ml OutputOutput Total 1473 ml 795 ml 540 ml BalanceBalance -983 ml -475 ml -60 ml Exam Exam Review of Systems: CONSTITUTIONAL: No fevers, chills. PULMONARY: No sob CARDIOVASCULAR: No chest pain/palpitations GASTROINTESTINAL: No nausea/vomiting. GENITOURINARY: No hematuria/dysuria. MUSCULOSKELETAL: No myagias/arthalgias. PSYCHIATRIC: The patient denies depression. NEUROLOGIC: No weakness Constitutional: alert Psych: no complaints Head: normocephalic ENMT: mucosa pink and moist Neck: supple, jvd (9 cm water) Respiratory: diminished breath sounds Cardiovascular: regular rate and rhythm Gastrointestinal: soft, non-tender Musculoskeletal: muscle tone Extremities: edema (none) Neurological: other (No focal deficits) Labs Result Diagram: 11/07/18 0500 11/07/18 0500 Results 24hrs Laboratory Tests Test 11/06/18 13:46 11/06/18 21:14 11/07/18 05:00 11/07/18 08:27 Bedside Glucose 123 145 103 White Blood Count 14.5 H Red Blood Count 3.44 L Hemoglobin 9.9 L Hematocrit 32.8 L Mean Corpuscular 95.3 Volume Mean Corpuscular 28.8 L Hemoglobin Mean Corpuscular 30.2 L Hemoglobin Concent Red Cell 16.4 H Distribution Width Platelet Count 197 Mean Platelet Volume 11.4 H Immature 1.000 H Granulocytes % Neutrophils % 75.9 Lymphocytes % 5.1 L Monocytes % 7.5 Eosinophils % 10.0 H Basophils % 0.5 Nucleated Red Blood 0.0 Cells % Immature 0.150 H Granulocytes # Neutrophils # 11.0 H Lymphocytes # 0.7 L Monocytes # 1.1 H Eosinophils # 1.4 H Basophils # 0.1 Nucleated Red Blood 0.0 Cells # Sodium Level 140 Potassium Level 3.5 Chloride Level 94 L Carbon Dioxide Level 37 H Anion Gap 9 # Blood Urea Nitrogen 21 H Creatinine 0.28 L Est Glomerular > 60 Filtrat Rate mL/min Glucose Level 122 Calcium Level 6.7 L Phosphorus Level 3.5 Magnesium Level 1.7 Medications Medications Current Medications Acetaminophen (Tylenol Liquid) 650 mg Q4H PRN GTB MILD PAIN(1-3)OR ELEVATED TEMP Last administered on 11/05/18at 23:55; Admin Dose 650 MG; Start 10/09/18 at 14:00 Al Hydrox/Mg Hydrox/Simethicone (Mag-Al Plus) 15 ml Q6H PRN PO GASTROINTESTINAL UPSET Last administered on 10/17/18at 13:18; Admin Dose 15 ML; Start 10/09/18 at 14:00 Eye Lubricant (Artificial Tears Oph) 1 drop Q6H PRN BOTH EYES DRY EYES Last administered on 11/03/18at 09:33; Admin Dose 1 DROP; Start 10/09/18 at 14:00 Bisacodyl (Dulcolax Supp) 10 mg DAILY PRN [place] CONSTIPATION; Start 10/09/18 at 14:00 Clonidine (Catapres) 0.1 mg DAILY PRN GTB ELEVATED BLOOD PRESSURE; Start 10/09/18 at 14:00 Diltiazem HCl (Cardizem Iv) 5 mg Q4 PRN IV ELEVATED HEART RATE Last administered on 11/06/18 18:47; Admin Dose 5 MG; Start 10/09/18 at 14:00 Diphenhydramine HCl (Benadryl Liquid Cup) 25 mg Q6 PRN GTB ITCHING Last administered on 10/22/18 20:25; Admin Dose 25 MG; Start 10/09/18 at 14:00 Duloxetine HCl (Cymbalta) 30 mg DAILY PO Last administered on 11/07/18 08:29; Admin Dose 30 MG; Start 10/10/18 at 09:00 Gabapentin (Neurontin Liquid) 400 mg Q8 GTB Last administered on 11/07/18 05:22; Admin Dose 400 MG; Start 10/09/18 at 15:30 Hydralazine HCl (Apresoline) 10 mg Q4H PRN IV ELEVATED BLOOD PRESSURE; Start 10/09/18 at 14:00 Hydroxychloroquine Sulfate (Plaquenil) 200 mg BID PO Last administered on 11/07/18 08:33; Admin Dose 200 MG; Start 10/09/18 at 21:00 Diagnostic Test (Pha) (Accu-Chek) 1 ea 02 XX Last administered on 11/04/18 02:27; Admin Dose 1 EA; Start 10/10/18 at 02:00 Insulin Aspart (Novolog Insulin Pen) NOVOLOG *CUSTOM* ALGORITHM Q6H SC Last administered on 11/03/18 02:36; Admin Dose 1 UNIT; Start 10/09/18 at 14:00 Lactobacillus Acidophilus (Florajen3 Capsule) 1 each BID GTB Last administered on 11/07/18 08:52; Admin Dose 1 EACH; Start 10/09/18 at 21:00 Lansoprazole (Prevacid) 30 mg BID@06,18 GTB Last administered on 11/07/18 05:21; Admin Dose 30 MG; Start 10/09/18 at 18:00 Levetiracetam (Keppra Liquid) 500 mg BID GTB Last administered on 11/07/18at 0 8:29; Admin Dose 500 MG; Start 10/09/18 at 21:00 Magnesium Oxide (Mag-Ox 400) 400 mg BID GTB Last administered on 11/07/18 08:31; Admin Dose 400 MG; Start 10/09/18 at 21:00 Metoclopramide HCl (Reglan) 10 mg TID IV Last administered on 11/07/18 08:34; Admin Dose 10 MG; Start 10/09/18 at 21:00 Miconazole Nitrate (Miconazole 2% Cr) 1 applic BID TOP Last administered on 11/07/18 08:52; Admin Dose 1 APPLIC; Start 10/09/18 at 21:00 Miconazole Nitrate (Miconazole 2% Cr) 1 applic Q12 PRN TOP rash; Start 10/09/18 at 14:00 Ondansetron HCl (Zofran Inj) 4 mg Q4H PRN IV NAUSEA AND/OR VOMITING Last administered on 10/19/18at 16:37; Admin Dose 4 MG; Start 10/09/18 at 14:00 Polyethylene Glycol (Miralax) 17 gm DAILY PRN GTB CONSTIPATION; Start 10/09/18 at 14:00 Senna (Senokot) 2 tab Q8 PRN PO CONSTIPATION; Start 10/09/18 at 14:00 Trimethoprim/ Sulfamethoxazole (Bactrim Susp) 40 ml DAILY GTB Last administered on 11/07/18at 08:35; Admin Dose 40 ML; Start 10/10/18 at 09:00 Zolpidem Tartrate (Ambien) 5 mg HS PRN PO INSOMNIA Last administered on 11/03/18at 01:16; Admin Dose 5 MG; Start 10/09/18 at 14:00 Miscellaneous Information 1 ea NOTE XX ; Start 10/09/18 at 15:00 Glucose (Glutose) 15 gm Q15M PRN PO DECREASED GLUCOSE; Start 10/09/18 at 15:00 Glucose (Glutose) 22.5 gm Q15M PRN PO DECREASED GLUCOSE; Start 10/09/18 at 15:00 Dextrose (D50w Syringe) 25 ml Q15M PRN IV DECREASED GLUCOSE; Start 10/09/18 at 15:00 Dextrose (D50w Syringe) 50 ml Q15M PRN IV DECREASED GLUCOSE; Start 10/09/18 at 15:00 Glucagon (Glucagen) 1 mg Q15M PRN IM DECREASED GLUCOSE; Start 10/09/18 at 15:00 Glucose (Glutose) 15 gm Q15M PRN BUCCAL DECREASED GLUCOSE; Start 10/09/18 at 15:00 Sodium Chloride 500 ml @ 500 mls/hr Q1H PRN IV BLOOD PRESSURE SUPPORT Last administered on 10/31/18 03:35; Admin Dose 500 MLS/HR; Start 10/09/18 at 19:30 Albuterol (Ventolin Hfa) 4 puff Q6H RESP THERAPY INH Last administered on 11/07/18 07:58; Admin Dose 4 PUFF; Start 10/10/18 at 02:00 Ipratropium [place] (Atrovent Hfa) 4 puff Q6H RESP THERAPY INH Last administered on 11/07/18 07:58; Admin Dose 4 PUFF; Start 10/10/18 at 02:00 Lorazepam (Ativan) 1 mg Q4H PRN GTB AGITATION/ANXIETY Last administered on 11/05/18 20:35; Admin Dose 1 MG; Start 10/14/18 at 13:00 Linagliptin (Tradjenta) 5 mg DAILY PO Last administered on 11/07/18 08:30; Admin Dose 5 MG; Start 10/16/18 at 10:30 Fentanyl (Duragesic 50 Mcg/Hr Patch) 1 patch Q72H TRANSDERM Last administered on 11/04/18 20:57; Admin Dose 1 PATCH; Start 10/17/18 at 20:30 Lorazepam (Ativan) 2 mg Q6H GTB Last administered on 11/07/18 09:54; Admin Dose 2 MG; Start 10/20/18 at 15:00 Quetiapine Fumarate (Seroquel) 100 mg BID GTB Last administered on 11/07/18 08:33; Admin Dose 100 MG; Start 10/21/18 at 21:00 Hydromorphone HCl (Dilaudid) 6 mg Q4H PRN PO MODERATE PAIN LEVEL 7-10 Last administered on 11/07/18 05:21; Admin Dose 6 MG; Start 10/21/18 at 22:00 Calcium Carbonate (Ca Carbonate) 1,250 mg QID GTB Last administered on 11/07/18 08:30; Admin Dose 1,250 MG; Start 10/24/18 at 13:00 Calcitriol (Rocaltrol) 1 mcg BID PO Last administered on 11/07/18 08:31; Admin Dose 1 MCG; Start 10/28/18 at 09:00 Metoprolol Tartrate (Lopressor) 5 mg Q4H PRN IV HR>110 Hold SBP<100 Last administered on 11/06/18 16:17; Admin Dose 5 MG; Start 10/28/18 at 12:30 Carvedilol (Coreg) 3.125 mg BID PO Last administered on 11/07/18 08:33; Admin Dose 3.125 MG; Start 11/01/18 at 21:00 Phenylephrine HCl 40 mg/Dextrose 250 ml @ 37.5 mls/hr TITRATE IV Last administered on 11/02/18 09:05; Admin Dose 11.25 MLS/HR; Start 11/01/18 at 13:30 IV Flush (NS 10 ml) 10 ml PRN PRN IV IV PROTOCOL; Start 11/01/18 at 16:30 Collagenase (Santyl) 1 applic DAILY TOP Last administered on 11/07/18 09:54; Admin Dose 1 APPLIC; Start 11/01/18 at 19:30 Norepinephrine 32 mg/Dextrose 250 ml @ 0.47 mls/hr TITRATE IV Last administered on 11/02/18 12:15; Admin Dose 0.47 MLS/HR; Start 11/02/18 at 11:30 Midodrine (Proamatine) 5 mg TID@09,13,17 GTB Last administered on 11/07/18 08:53; Admin Dose 5 MG; Start 11/03/18 at 09:00 Guaifenesin (Robitussin Liquid Cup) 100 mg Q4H PRN PO COUGH Last administered on 11/05/18 20:31; Admin Dose 100 MG; Start 11/03/18 at 12:00 Hydrocortisone (Cortef) 20 mg QAM PEG Last administered on 11/07/18 08:31; Admin Dose 20 MG; Start 11/04/18 at 09:00 Hydrocortisone (Cortef) 20 mg AC DINNER PEG Last administered on 11/06/18 17:16; Admin Dose 20 MG; Start 11/04/18 at 17:05 Hydrocortisone (Cortef) 20 mg HS PEG Last administered on 11/06/18at 20:59; Adm in Dose 20 MG; Start 11/03/18 at 22:45 BRISA HAQUE Nov 07, 2018 10:28
--- NOTE | 2018-11-07 12:29 | CONS ---
Assessment/Plan Assessment/Plan Assessment/Plan (Daily) Goals of care would be to keep as comfortable as possible while supporting one another is estimated prognosis is extremely poor. We discussed options one being continued his level of care to continue with this level of care changed to DO NOT RESUSCITATE third comfort measures. Family opted to continue with this level of care but no cardiopulmonary resuscitation. Further it would be my understanding that if and when patient develops another bout of sepsis and respiratory failure require higher amounts of oxygen and pressor support the family will probably elect to change to a comfort measure status. There are no pain and symptom management issues psychological psychological social spiritual or existential issues that needed to be addressed at that time patient CODE STATUS has not changed to DO NOT RESUSCITATE There is been no change in patient's overall clinical condition, he remains cognitively intact able to make his own decisions on level of care. However he has opted to ask family participate in any change in goals of care and level of care. If she deteriorates again I suspect that they will opt for comfort measures. Consultation Date/Type/Reason Admit Date/Time Oct 09, 2018 at 12:16 Initial Consult Date 10/12/18 Requesting Provider: NOLA VIDAL MD Date/Time of Note DATE: 11/07/18 TIME: 12:28 Exam/Review of Systems Exam Vitals Vital Signs Date Temp Pulse Resp B/P (MAP) Pulse Ox O2 O2 Flow FiO2 Time Delivery Rate 11/07/18 99.1 08:00 11/07/18 117 08:00 11/07/18 23 124/86 96 Mechanical 08:00 (99) Ventilator 11/07/18 70 04:55 Intake and Output 11/06/18 11/06/18 11/07/18 1515:00 23:00 07:00 IntakeIntake Total 490 ml 320 ml 480 ml OutputOutput Total 1473 ml 795 ml 540 ml BalanceBalance -983 ml -475 ml -60 ml Results Result Diagram: 11/07/18 0500 11/07/18 0500 Results 24hrs Laboratory Tests Test 11/06/18 13:46 11/06/18 21:14 11/07/18 05:00 11/07/18 08:27 Bedside Glucose 123 145 103 White Blood Count 14.5 H Red Blood Count 3.44 L Hemoglobin 9.9 L Hematocrit 32.8 L Mean Corpuscular 95.3 Volume Mean Corpuscular 28.8 L Hemoglobin Mean Corpuscular 30.2 L Hemoglobin Concent Red Cell 16.4 H Distribution Width Platelet Count 197 Mean Platelet Volume 11.4 H Immature 1.000 H Granulocytes % Neutrophils % 75.9 Lymphocytes % 5.1 L Monocytes % 7.5 Eosinophils % 10.0 H Basophils % 0.5 Nucleated Red Blood 0.0 Cells % Immature 0.150 H Granulocytes # Neutrophils # 11.0 H Lymphocytes # 0.7 L Monocytes # 1.1 H Eosinophils # 1.4 H Basophils # 0.1 Nucleated Red Blood 0.0 Cells # Sodium Level 140 Potassium Level 3.5 Chloride Level 94 L Carbon Dioxide Level 37 H Anion Gap 9 # Blood Urea Nitrogen 21 H Creatinine 0.28 L Est Glomerular > 60 Filtrat Rate mL/min Glucose Level 122 Calcium Level 6.7 L Phosphorus Level 3.5 Magnesium Level 1.7 Medications Medication Current Medications Acetaminophen (Tylenol Liquid) 650 mg Q4H PRN GTB MILD PAIN(1-3)OR ELEVATED TEMP Last administered on 11/05/18at 23:55; Admin Dose 650 MG; Start 10/09/18 at 14:00 Al Hydrox/Mg Hydrox/Simethicone (Mag-Al Plus) 15 ml Q6H PRN PO GASTROINTESTINAL UPSET Last administered on 10/17/18 13:18; Admin Dose 15 ML; Start 10/09/18 at 14:00 Eye Lubricant (Artificial Tears Oph) 1 drop Q6H PRN BOTH EYES DRY EYES Last administered on 11/03/18 09:33; Admin Dose 1 DROP; Start 10/09/18 at 14:00 Bisacodyl (Dulcolax Supp) 10 mg DAILY PRN [place] CONSTIPATION; Start 10/09/18 at 14:00 Clonidine (Catapres) 0.1 mg DAILY PRN GTB ELEVATED BLOOD PRESSURE; Start 10/09/18 at 14:00 Diltiazem HCl (Cardizem Iv) 5 mg Q4 PRN IV ELEVATED HEART RATE Last administered on 11/06/18at 18:47; Admin Dose 5 MG; Start 10/09/18 at 14:00 Diphenhydramine HCl (Benadryl Liquid Cup) 25 mg Q6 PRN GTB ITCHING Last administered on 10/22/18at 20:25; Admin Dose 25 MG; Start 10/09/18 at 14:00 Duloxetine HCl (Cymbalta) 30 mg DAILY PO Last administered on 11/07/18 08:29; Admin Dose 30 MG; Start 10/10/18 at 09:00 Gabapentin (Neurontin Liquid) 400 mg Q8 GTB Last administered on 11/07/18 05:22; Admin Dose 400 MG; Start 10/09/18 at 15:30 Hydralazine HCl (Apresoline) 10 mg Q4H PRN IV ELEVATED BLOOD PRESSURE; Start 10/09/18 at 14:00 Hydroxychloroquine Sulfate (Plaquenil) 200 mg BID PO Last administered on 11/07/18 08:33; Admin Dose 200 MG; Start 10/09/18 at 21:00 Diagnostic Test (Pha) (Accu-Chek) 1 ea 02 XX Last administered on 11/04/18 02:27; Admin Dose 1 EA; Start 10/10/18 at 02:00 Insulin Aspart (Novolog Insulin Pen) NOVOLOG *CUSTOM* ALGORITHM Q6H SC Last administered on 11/03/18 02:36; Admin Dose 1 UNIT; Start 10/09/18 at 14:00 Lactobacillus Acidophilus (Florajen3 Capsule) 1 each BID GTB Last administered on 11/07/18 08:52; Admin Dose 1 EACH; Start 10/09/18 at 21:00 Lansoprazole (Prevacid) 30 mg BID@06,18 GTB Last administered on 11/07/18 05:21; Admin Dose 30 MG; Start 10/09/18 at 18:00 Levetiracetam (Keppra Liquid) 500 mg BID GTB Last administered on 11/07/18 08:29; Admin Dose 500 MG; Start 10/09/18 at 21:00 Magnesium Oxide (Mag-Ox 400) 400 mg BID GTB Last administered on 11/07/18 08:31; Admin Dose 400 MG; Start 10/09/18 at 21:00 Metoclopramide HCl (Reglan) 10 mg TID IV Last administered on 11/07/18 08:34; Admin Dose 10 MG; Start 10/09/18 at 21:00 Miconazole Nitrate (Miconazole 2% Cr) 1 applic BID TOP Last administered on 11/07/18 08:52; Admin Dose 1 APPLIC; Start 10/09/18 at 21:00 Miconazole Nitrate (Miconazole 2% Cr) 1 applic Q12 PRN TOP rash; Start 10/09/18 at 14:00 Ondansetron HCl (Zofran Inj) 4 mg Q4H PRN IV NAUSEA AND/OR VOMITING Last administered on 10/19/18at 16:37; Admin Dose 4 MG; Start 10/09/18 at 14:00 Polyethylene Glycol (Miralax) 17 gm DAILY PRN GTB CONSTIPATION; Start 10/09/18 at 14:00 Senna (Senokot) 2 tab Q8 PRN PO CONSTIPATION; Start 10/09/18 at 14:00 Trimethoprim/ Sulfamethoxazole (Bactrim Susp) 40 ml DAILY GTB Last administered on 11/07/18at 08:35; Admin Dose 40 ML; Start 10/10/18 at 09:00 Zolpidem Tartrate (Ambien) 5 mg HS PRN PO INSOMNIA Last administered on 10/15 09/03at 01:16; Admin Dose 5 MG; Start 10/09/18 at 14:00 Miscellaneous Information 1 ea NOTE XX ; Start 10/09/18 at 15:00 Glucose (Glutose) 15 gm Q15M PRN PO DECREASED GLUCOSE; Start 10/09/18 at 15:00 Glucose (Glutose) 22.5 gm Q15M PRN PO DECREASED GLUCOSE; Start 10/09/18 at 15:00 Dextrose (D50w Syringe) 25 ml Q15M PRN IV DECREASED GLUCOSE; Start 10/09/18 at 15:00 Dextrose (D50w Syringe) 50 ml Q15M PRN IV DECREASED GLUCOSE; Start 10/09/18 at 15:00 Glucagon (Glucagen) 1 mg Q15M PRN IM DECREASED GLUCOSE; Start 10/09/18 at 15:00 Glucose (Glutose) 15 gm Q15M PRN BUCCAL DECREASED GLUCOSE; Start 10/09/18 at 15:00 Sodium Chloride 500 ml @ 500 mls/hr Q1H PRN IV BLOOD PRESSURE SUPPORT Last administered on 10/31/18at 03:35; Admin Dose 500 MLS/HR; Start 10/09/18 at 19:30 Albuterol (Ventolin Hfa) 4 puff Q6H RESP THERAPY INH Last administered on 11/07/18at 07:58; Admin Dose 4 PUFF; Start 10/10/18 at 02:00 Ipratropium [place] (Atrovent Hfa) 4 puff Q6H RESP THERAPY INH Last administered on 11/07/18 07:58; Admin Dose 4 PUFF; Start 10/10/18 at 02:00 Lorazepam (Ativan) 1 mg Q4H PRN GTB AGITATION/ANXIETY Last administered on 11/05/18 20:35; Admin Dose 1 MG; Start 10/14/18 at 13:00 Linagliptin (Tradjenta) 5 mg DAILY PO Last administered on 11/07/18 08:30; Admin Dose 5 MG; Start 10/16/18 at 10:30 Fentanyl (Duragesic 50 Mcg/Hr Patch) 1 patch Q72H TRANSDERM Last administered on 11/04/18 20:57; Admin Dose 1 PATCH; Start 10/17/18 at 20:30 Lorazepam (Ativan) 2 mg Q6H GTB Last administered on 11/07/18 09:54; Admin Dose 2 MG; Start 10/20/18 at 15:00 Quetiapine Fumarate (Seroquel) 100 mg BID GTB Last administered on 11/07/18 08:33; Admin Dose 100 MG; Start 10/21/18 at 21:00 Hydromorphone HCl (Dilaudid) 6 mg Q4H PRN PO MODERATE PAIN LEVEL 7-10 Last administered on 11/07/18 05:21; Admin Dose 6 MG; Start 10/21/18 at 22:00 Calcium Carbonate (Ca Carbonate) 1,250 mg QID GTB Last administered on 11/07/18 08:30; Admin Dose 1,250 MG; Start 10/24/18 at 13:00 Metoprolol Tartrate (Lopressor) 5 mg Q4H PRN IV HR>110 Hold SBP<100 Last administered on 11/06/18 16:17; Admin Dose 5 MG; Start 10/28/18 at 12:30 Carvedilol (Coreg) 3.125 mg BID PO Last administered on 11/07/18 08:33; Admin Dose 3.125 MG; Start 11/01/18 at 21:00 Phenylephrine HCl 40 mg/Dextrose 250 ml @ 37.5 mls/hr TITRATE IV Last administered on 11/02/18 09:05; Admin Dose 11.25 MLS/HR; Start 11/01/18 at 13:30 IV Flush (NS 10 ml) 10 ml PRN PRN IV IV PROTOCOL; Start 11/01/18 at 16:30 Collagenase (Santyl) 1 applic DAILY TOP Last administered on 11/07/18 09:54; Admin Dose 1 APPLIC; Start 11/01/18 at 19:30 Norepinephrine 32 mg/Dextrose 250 ml @ 0.47 mls/hr TITRATE IV Last administered on 11/02/18at 12:15; Admin Dose 0.47 MLS/HR; Start 11/02/18 at 11:30 Midodrine (Proamatine) 5 mg TID@,13,17 GTB Last administered on 11/07/18 08:53; Admin Dose 5 MG; Start 11/03/18 at 09:00 Guaifenesin (Robitussin Liquid Cup) 100 mg Q4H PRN PO COUGH Last administered on 11/05/18 20:31; Admin Dose 100 MG; Start 11/03/18 at 12:00 Hydrocortisone (Cortef) 20 mg QAM PEG Last administered on 11/07/18 08:31; Admin Dose 20 MG; Start 11/04/18 at 09:00 Hydrocortisone (Cortef) 20 mg AC DINNER PEG Last administered on 11/06/18 17:16; Admin Dose 20 MG; Start 11/04/18 at 17:05 Hydrocortisone (Cortef) 20 mg HS PEG Last administered on 11/06/18at 20:59; Admin Dose 20 MG; Start 11/03/18 at 22:45 Calcitriol (Rocaltrol) 1.5 mcg BID PO ; Start 11/07/18 at 21:00; Status UNV RENATO GAMBOA Nov 07, 2018 12:29
--- NOTE | 2018-11-07 13:40 | CONS ---
Assessment/Plan Assessment/Plan Problems: (1) Hypoparathyroidism Status: Chronic Comment: His calciums are very slowly drifting down. And get a go ahead and increase the calcitriol dosing again to get him into a more optimized state Qualifiers: Hypoparathyroidism type: idiopathic Qualified Codes: E20.0 - Idiopathic hypoparathyroidism (2) Hypocalcemia Onset Date: ~ 10/14/2018 Status: Acute Comment: Noted. 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 Status: Chronic Comment: Stable on above physiologic replacement dosing due to the stress of the situation (4) Diabetes mellitus type 2 in nonobese Status: Chronic Comment: Adequate glycemic control Consultation Date/Type/Reason Admit Date/Time Oct 09, 2018 at 12:16 Initial Consult Date 10/12/18 Type of Consult Endocrinology Reason for Consultation Iatrogenic adrenal insufficiency due to chronic steroid usage for rheumatoid arthritis; primary hypoparathyroidism with hypocalcemia Requesting Provider: NOLA VIDAL MD Date/Time of Note DATE: 11/07/18 TIME: 13:39 24 HR Interval Summary Free Text/Dictation She is minimally verbal at this time Exam/Review of Systems Exam Vitals Vital Signs Date Temp Pulse Resp B/P (MAP) Pulse Ox O2 O2 Flow FiO2 Time Delivery Rate 11/07/18 116 29 129/90 97 13:00 (103) 11/07/18 70 12:39 11/07/18 98.3 Mechanical 12:00 Ventilator Intake and Output 11/06/18 11/06/18 11/07/18 1515:00 23:00 07:00 IntakeIntake Total 490 ml 320 ml 480 ml OutputOutput Total 1473 ml 795 ml 540 ml BalanceBalance -983 ml -475 ml -60 ml Exam No change in examination Results Result Diagram: 11/07/18 0500 11/07/18 0500 Results 24hrs Laboratory Tests Test 11/06/18 13:46 11/06/18 21:14 11/07/18 05:00 11/07/18 08:27 Bedside Glucose 123 145 103 White Blood Count 14.5 H Red Blood Count 3.44 L Hemoglobin 9.9 L Hematocrit 32.8 L Mean Corpuscular 95.3 Volume Mean Corpuscular 28.8 L Hemoglobin Mean Corpuscular 30.2 L Hemoglobin Concent Red Cell 16.4 H Distribution Width Platelet Count 197 Mean Platelet Volume 11.4 H Immature 1.000 H Granulocytes % Neutrophils % 75.9 Lymphocytes % 5.1 L Monocytes % 7.5 Eosinophils % 10.0 H Basophils % 0.5 Nucleated Red Blood 0.0 Cells % Immature 0.150 H Granulocytes # Neutrophils # 11.0 H Lymphocytes # 0.7 L Monocytes # 1.1 H Eosinophils # 1.4 H Basophils # 0.1 Nucleated Red Blood 0.0 Cells # Sodium Level 140 Potassium Level 3.5 Chloride Level 94 L Carbon Dioxide Level 37 H Anion Gap 9 # Blood Urea Nitrogen 21 H Creatinine 0.28 L Est Glomerular > 60 Filtrat Rate mL/min Glucose Level 122 Calcium Level 6.7 L Phosphorus Level 3.5 Magnesium Level 1.7 Medications Medication Current Medications Acetaminophen (Tylenol Liquid) 650 mg Q4H PRN GTB MILD PAIN(1-3)OR ELEVATED TEMP Last administered on 11/05/18 23:55; Admin Dose 650 MG; Start 10/09/18 at 14:00 Al Hydrox/Mg Hydrox/Simethicone (Mag-Al Plus) 15 ml Q6H PRN PO GASTROINTESTINAL UPSET Last administered on 10/17/18 13:18; Admin Dose 15 ML; Start 10/09/18 at 14:00 Eye Lubricant (Artificial Tears Oph) 1 drop Q6H PRN BOTH EYES DRY EYES Last administered on 11/03/18 09:33; Admin Dose 1 DROP; Start 10/09/18 at 14:00 Bisacodyl (Dulcolax Supp) 10 mg DAILY PRN [place] CONSTIPATION; Start 10/09/18 at 14:00 Clonidine (Catapres) 0.1 mg DAILY PRN GTB ELEVATED BLOOD PRESSURE; Start at 14:00 Diltiazem HCl (Cardizem Iv) 5 mg Q4 PRN IV ELEVATED HEART RATE Last administered on 11/06/18 18:47; Admin Dose 5 MG; Start 10/09/18 at 14:00 Diphenhydramine HCl (Benadryl Liquid Cup) 25 mg Q6 PRN GTB ITCHING Last administered on 10/22/18 20:25; Admin Dose 25 MG; Start 10/09/18 at 14:00 Duloxetine HCl (Cymbalta) 30 mg DAILY PO Last administered on 11/07/18 08:29; Admin Dose 30 MG; Start 10/10/18 at 09:00 Gabapentin (Neurontin Liquid) 400 mg Q8 GTB Last administered on 11/07/18 05:22; Admin Dose 400 MG; Start 10/09/18 at 15:30 Hydralazine HCl (Apresoline) 10 mg Q4H PRN IV ELEVATED BLOOD PRESSURE; Start 10/09/18 at 14:00 Hydroxychloroquine Sulfate (Plaquenil) 200 mg BID PO Last administered on 11/07/18 08:33; Admin Dose 200 MG; Start 10/09/18 at 21:00 Diagnostic Test (Pha) (Accu-Chek) 1 ea 02 XX Last administered on 11/04/18 02:27; Admin Dose 1 EA; Start 10/10/18 at 02:00 Insulin Aspart (Novolog Insulin Pen) NOVOLOG *CUSTOM* ALGORITHM Q6H SC Last administered on 11/03/18 02:36; Admin Dose 1 UNIT; Start 10/09/18 at 14:00 Lactobacillus Acidophilus (Florajen3 Capsule) 1 each BID GTB Last administered on 11/07/18 08:52; Admin Dose 1 EACH; Start 10/09/18 at 21:00 Lansoprazole (Prevacid) 30 mg BID@,18 GTB Last administered on 11/07/18 05:21; Admin Dose 30 MG; Start 10/09/18 at 18:00 Levetiracetam (Keppra Liquid) 500 mg BID GTB Last administered on 11/07/18 08:29; Admin Dose 500 MG; Start 10/09/18 at 21:00 Magnesium Oxide (Mag-Ox 400) 400 mg BID GTB Last administered on 11/07/18 08:31; Admin Dose 400 MG; Start 10/09/18 at 21:00 Metoclopramide HCl (Reglan) 10 mg TID IV Last administered on 11/07/18 08:34; Admin Dose 10 MG; Start 10/09/18 at 21:00 Miconazole Nitrate (Miconazole 2% Cr) 1 applic BID TOP Last administered on 11/07/18 08:52; Admin Dose 1 APPLIC; Start 10/09/18 at 21:00 Miconazole Nitrate (Miconazole 2% Cr) 1 applic Q12 PRN TOP rash; Start 10/09/18 at 14:00 Ondansetron HCl (Zofran Inj) 4 mg Q4H PRN IV NAUSEA AND/OR VOMITING Last administered on 10/19/18at 16:37; Admin Dose 4 MG; Start 10/09/18 at 14:00 Polyethylene Glycol (Miralax) 17 gm DAILY PRN GTB CONSTIPATION; Start 10/09/18 at 14:00 Senna (Senokot) 2 tab Q8 PRN PO CONSTIPATION; Start 10/09/18 at 14:00 Trimethoprim/ Sulfamethoxazole (Bactrim Susp) 40 ml DAILY GTB Last administered on 11/07/18at 08:35; Admin Dose 40 ML; Start 10/10/18 at 09:00 Zolpidem Tartrate (Ambien) 5 mg HS PRN PO INSOMNIA Last administered on 11/03/18at 01:16; Admin Dose 5 MG; Start 10/09/18 at 14:00 Miscellaneous Information 1 ea NOTE XX ; Start 10/09/18 at 15:00 Glucose (Glutose) 15 gm Q15M PRN PO DECREASED GLUCOSE; Start 10/09/18 at 15:00 Glucose (Glutose) 22.5 gm Q15M PRN PO DECREASED GLUCOSE; Start 10/09/18 at 15:00 Dextrose (D50w Syringe) 25 ml Q15M PRN IV DECREASED GLUCOSE; Start 10/09/18 at 15:00 Dextrose (D50w Syringe) 50 ml Q15M PRN IV DECREASED GLUCOSE; Start 10/09/18 at 15:00 Glucagon (Glucagen) 1 mg Q15M PRN IM DECREASED GLUCOSE; Start 10/09/18 at 15:00 Glucose (Glutose) 15 gm Q15M PRN BUCCAL DECREASED GLUCOSE; Start 10/09/18 at 15:00 Sodium Chloride 500 ml @ 500 mls/hr Q1H PRN IV BLOOD PRESSURE SUPPORT Last administered on 10/31/18at 03:35; Admin Dose 500 MLS/HR; Start 10/09/18 at 19:30 Albuterol (Ventolin Hfa) 4 puff Q6H RESP THERAPY INH Last administered on 11/07/18at 12:47; Admin Dose 4 PUFF; Start 10/10/18 at 02:00 Ipratropium [place] (Atrovent Hfa) 4 puff Q6H RESP THERAPY INH Last administered on 11/07/18 12:48; Admin Dose 4 PUFF; Start 10/10/18 at 02:00 Lorazepam (Ativan) 1 mg Q4H PRN GTB AGITATION/ANXIETY Last administered on 11/05/18 20:35; Admin Dose 1 MG; Start 10/14/18 at 13:00 Linagliptin (Tradjenta) 5 mg DAILY PO Last administered on 11/07/18 08:30; Admin Dose 5 MG; Start 10/16/18 at 10:30 Fentanyl (Duragesic 50 Mcg/Hr Patch) 1 patch Q72H TRANSDERM Last administered on 11/04/18 20:57; Admin Dose 1 PATCH; Start 10/17/18 at 20:30 Lorazepam (Ativan) 2 mg Q6H GTB Last administered on 11/07/18 09:54; Admin Dose 2 MG; Start 10/20/18 at 15:00 Quetiapine Fumarate (Seroquel) 100 mg BID GTB Last administered on 11/07/18 08:33; Admin Dose 100 MG; Start 10/21/18 at 21:00 Hydromorphone HCl (Dilaudid) 6 mg Q4H PRN PO MODERATE PAIN LEVEL 7-10 Last administered on 11/07/18 05:21; Admin Dose 6 MG; Start 10/21/18 at 22:00 Calcium Carbonate (Ca Carbonate) 1,250 mg QID GTB Last administered on 11/07/18 08:30; Admin Dose 1,250 MG; Start 10/24/18 at 13:00 Metoprolol Tartrate (Lopressor) 5 mg Q4H PRN IV HR>110 Hold SBP<100 Last administered on 11/06/18 16:17; Admin Dose 5 MG; Start 10/28/18 at 12:30 Carvedilol (Coreg) 3.125 mg BID PO Last administered on 11/07/18 08:33; Admin Dose 3.125 MG; Start 11/01/18 at 21:00 Phenylephrine HCl 40 mg/Dextrose 250 ml @ 37.5 mls/hr TITRATE IV Last administered on 11/02/18 09:05; Admin Dose 11.25 MLS/HR; Start 11/01/18 at 13:30 IV Flush (NS 10 ml) 10 ml PRN PRN IV IV PROTOCOL; Start 11/01/18 at 16:30 Collagenase (Santyl) 1 applic DAILY TOP Last administered on 11/07/18 09:54; Admin Dose 1 APPLIC; Start 11/01/18 at 19:30 Norepinephrine 32 mg/Dextrose 250 ml @ 0.47 mls/hr TITRATE IV Last administered on 11/02/18 12:15; Admin Dose 0.47 MLS/HR; Start 11/02/18 at 11:30 Midodrine (Proamatine) 5 mg TID@09,13,17 GTB Last administered on 11/07/18 08:53; Admin Dose 5 MG; Start 11/03/18 at 09:00 Guaifenesin (Robitussin Liquid Cup) 100 mg Q4H PRN PO COUGH Last administered on 11/05/18 20:31; Admin Dose 100 MG; Start 11/03/18 at 12:00 Hydrocortisone (Cortef) 20 mg QAM PEG Last administered on 11/07/18 08:31; Admin Dose 20 MG; Start 11/04/18 at 09:00 Hydrocortisone (Cortef) 20 mg AC DINNER PEG Last administered on 11/06/18 17:16; Admin Dose 20 MG; Start 11/04/18 at 17:05 Hydrocortisone (Cortef) 20 mg HS PEG Last administered on 11/06/18 20:59; Admin Dose 20 MG; Start 11/03/18 at 22:45 Calcitriol (Rocaltrol) 1.5 mcg BID PO ; Start 11/07/18 at 21:00 KEV ISSA MD Nov 07, 2018 13:40
--- NOTE | 2018-11-07 17:38 | PN ---
Date/Time of Note Date/Time of Note DATE: 11/07/18 TIME: 17:32 Assessment/Plan VTE Prophylaxis Risk score (from [facility])>0 risk: 6 SCD applied (from [facility]): Yes Pharmacological prophylaxis: NA/contraindicated Pharm contraindication: other Lines/Catheters IV Catheter Type (from [facility]): PICC Line Central line still needed: Yes Urinary Cath still in place: No Assessment/Plan Hospital Course Patient on ventilator support with 70% FiO2 and PEEP of 8 Assessment/Plan - Acute on chronic hypoxemic respiratory failure with underlying ARDS, continue ventilatory support. Dr. Villa is following in pulmonology consultation. - Acute kidney injury, continue to monitor BUN and creatinine. G-tube feeding changed to renal source. Dr. Hobson is following in nephrology consultation. -Tachycardia, Dr. Joshi is following in cardiology consultation. - Cardiomyopathy with EF 35-40% - Rheumatoid arthritis with steroid dependence. - Dysphagia. Continue GT feeding. - Anemia of chronic disease. - Hypoparathyroidism - Hypertension. - Functional quadriplegia - Hx of severe cervical spinal cord stenosis with cord compression from C3-C5, s/p laminectomy. - History of fibromyalgia rheumatica - Hx of VAT on 08/11/2018 - Poor prognosis, Dr. Zurita is following in palliative care consultation. - DNR status Critical care time spent 30 minutes. Further recommendations based on clinical course. Plan of care discussed with Dr. Rosales Result Diagram: 11/07/18 0500 11/07/18 0500 Results 24hrs Laboratory Tests Test 11/06/18 21:14 11/07/18 05:00 11/07/18 08:27 11/07/18 15:12 Bedside Glucose 145 103 116 White Blood Count 14.5 H Red Blood Count 3.44 L Hemoglobin 9.9 L Hematocrit 32.8 L Mean Corpuscular 95.3 Volume Mean Corpuscular 28.8 L Hemoglobin Mean Corpuscular 30.2 L Hemoglobin Concent Red Cell 16.4 H Distribution Width Platelet Count 197 Mean Platelet Volume 11.4 H Immature 1.000 H Granulocytes % Neutrophils % 75.9 Lymphocytes % 5.1 L Monocytes % 7.5 Eosinophils % 10.0 H Basophils % 0.5 Nucleated Red Blood 0.0 Cells % Immature 0.150 H Granulocytes # Neutrophils # 11.0 H Lymphocytes # 0.7 L Monocytes # 1.1 H Eosinophils # 1.4 H Basophils # 0.1 Nucleated Red Blood 0.0 Cells # Sodium Level 140 Potassium Level 3.5 Chloride Level 94 L Carbon Dioxide Level 37 H Anion Gap 9 # Blood Urea Nitrogen 21 H Creatinine 0.28 L Est Glomerular > 60 Filtrat Rate mL/min Glucose Level 122 Calcium Level 6.7 L Phosphorus Level 3.5 Magnesium Level 1.7 Exam/Review of Systems Exam Vitals Vital Signs Date Temp Pulse Resp B/P (MAP) Pulse Ox O2 O2 Flow FiO2 Time Delivery Rate 11/07/18 109 26 95 70 17:13 11/07/18 129/90 13:00 (103) 11/07/18 98.3 Mechanical 12:00 Ventilator Intake and Output 11/06/18 11/06/18 11/07/18 1515:00 23:00 07:00 IntakeIntake Total 490 ml 320 ml 480 ml OutputOutput Total 1473 ml 795 ml 540 ml BalanceBalance -983 ml -475 ml -60 ml Exam Constitutional: alert, oriented, frail Neck: other (trach) Respiratory: diminished breath sounds Cardiovascular: regular rate and rhythm Gastrointestinal: soft, non-tender, other Neurological: nl mental status Results Results 24hrs Laboratory Tests Test 11/06/18 21:14 11/07/18 05:00 11/07/18 08:27 11/07/18 15:12 Bedside Glucose 145 103 116 White Blood Count 14.5 H Red Blood Count 3.44 L Hemoglobin 9.9 L Hematocrit 32.8 L Mean Corpuscular 95.3 Volume Mean Corpuscular 28.8 L Hemoglobin Mean Corpuscular 30.2 L Hemoglobin Concent Red Cell 16.4 H Distribution Width Platelet Count 197 Mean Platelet Volume 11.4 H Immature 1.000 H Granulocytes % Neutrophils % 75.9 Lymphocytes % 5.1 L Monocytes % 7.5 Eosinophils % 10.0 H Basophils % 0.5 Nucleated Red Blood 0.0 Cells % Immature 0.150 H Granulocytes # Neutrophils # 11.0 H Lymphocytes # 0.7 L Monocytes # 1.1 H Eosinophils # 1.4 H Basophils # 0.1 Nucleated Red Blood 0.0 Cells # Sodium Level 140 Potassium Level 3.5 Chloride Level 94 L Carbon Dioxide Level 37 H Anion Gap 9 # Blood Urea Nitrogen 21 H Creatinine 0.28 L Est Glomerular > 60 Filtrat Rate mL/min Glucose Level 122 Calcium Level 6.7 L Phosphorus Level 3.5 Magnesium Level 1.7 Medications Medication Current Medications Acetaminophen (Tylenol Liquid) 650 mg Q4H PRN GTB MILD PAIN(1-3)OR ELEVATED TEMP Last administered on 11/05/18 23:55; Admin Dose 650 MG; Start 10/09/18 at 14:00 Al Hydrox/Mg Hydrox/Simethicone (Mag-Al Plus) 15 ml Q6H PRN PO GASTROINTESTINAL UPSET Last administered on 10/17/18 13:18; Admin Dose 15 ML; Start 10/09/18 at 14:00 Eye Lubricant (Artificial Tears Oph) 1 drop Q6H PRN BOTH EYES DRY EYES Last administered on 11/03/18 09:33; Admin Dose 1 DROP; Start 10/09/18 at 14:00 Bisacodyl (Dulcolax Supp) 10 mg DAILY PRN [place] CONSTIPATION; Start 10/09/18 at 14:00 Clonidine (Catapres) 0.1 mg DAILY PRN GTB ELEVATED BLOOD PRESSURE; Start 10/09/18 at 14:00 Diltiazem HCl (Cardizem Iv) 5 mg Q4 PRN IV ELEVATED HEART RATE Last administer ed on 11/06/18 18:47; Admin Dose 5 MG; Start 10/09/18 at 14:00 Diphenhydramine HCl (Benadryl Liquid Cup) 25 mg Q6 PRN GTB ITCHING Last administered on 10/22/18 20:25; Admin Dose 25 MG; Start 10/09/18 at 14:00 Duloxetine HCl (Cymbalta) 30 mg DAILY PO Last administered on 11/07/18 08:29; Admin Dose 30 MG; Start 10/10/18 at 09:00 Gabapentin (Neurontin Liquid) 400 mg Q8 GTB Last administered on 11/07/18 13:45; Admin Dose 400 MG; Start 10/09/18 at 15:30 Hydralazine HCl (Apresoline) 10 mg Q4H PRN IV ELEVATED BLOOD PRESSURE; Start 10/09/18 at 14:00 Hydroxychloroquine Sulfate (Plaquenil) 200 mg BID PO Last administered on 11/07/18 08:33; Admin Dose 200 MG; Start 10/09/18 at 21:00 Diagnostic Test (Pha) (Accu-Chek) 1 ea 02 XX Last administered on 11/04/18 02:27; Admin Dose 1 EA; Start 10/10/18 at 02:00 Insulin Aspart (Novolog Insulin Pen) NOVOLOG *CUSTOM* ALGORITHM Q6H SC Last administered on 11/03/18 02:36; Admin Dose 1 UNIT; Start 10/09/18 at 14:00 Lactobacillus Acidophilus (Florajen3 Capsule) 1 each BID GTB Last administered on 11/07/18 08:52; Admin Dose 1 EACH; Start 10/09/18 at 21:00 Lansoprazole (Prevacid) 30 mg BID@06,18 GTB Last administered on 11/07/18 05:21; Admin Dose 30 MG; Start 10/09/18 at 18:00 Levetiracetam (Keppra Liquid) 500 mg BID GTB Last administered on 11/07/18 08:29; Admin Dose 500 MG; Start 10/09/18 at 21:00 Magnesium Oxide (Mag-Ox 400) 400 mg BID GTB Last administered on 11/07/18 08:31; Admin Dose 400 MG; Start 10/09/18 at 21:00 Metoclopramide HCl (Reglan) 10 mg TID IV Last administered on 11/07/18 13:41; Admin Dose 10 MG; Start 10/09/18 at 21:00 Miconazole Nitrate (Miconazole 2% Cr) 1 applic BID TOP Last administered on 11/07/18 08:52; Admin Dose 1 APPLIC; Start 10/09/18 at 21:00 Miconazole Nitrate (Miconazole 2% Cr) 1 applic Q12 PRN TOP rash; Start 10/09/18 at 14:00 Ondansetron HCl (Zofran Inj) 4 mg Q4H PRN IV NAUSEA AND/OR VOMITING Last administered on 10/19/18 16:37; Admin Dose 4 MG; Start 10/09/18 at 14:00 Polyethylene Glycol (Miralax) 17 gm DAILY PRN GTB CONSTIPATION; Start 10/09/18 at 14:00 Senna (Senokot) 2 tab Q8 PRN PO CONSTIPATION; Start 10/09/18 at 14:00 Trimethoprim/ Sulfamethoxazole (Bactrim Susp) 40 ml DAILY GTB Last administered on 11/07/18 08:35; Admin Dose 40 ML; Start 10/10/18 at 09:00 Zolpidem Tartrate (Ambien) 5 mg HS PRN PO INSOMNIA Last administered on 11/03/18 01:16; Admin Dose 5 MG; Start 10/09/18 at 14:00 Miscellaneous Information 1 ea NOTE XX ; Start 10/09/18 at 15:00 Glucose (Glutose) 15 gm Q15M PRN PO DECREASED GLUCOSE; Start 10/09/18 at 15:00 Glucose (Glutose) 22.5 gm Q15M PRN PO DECREASED GLUCOSE; Start 10/09/18 at 15:00 Dextrose (D50w Syringe) 25 ml Q15M PRN IV DECREASED GLUCOSE; Start 10/09/18 at 15:00 Dextrose (D50w Syringe) 50 ml Q15M PRN IV DECREASED GLUCOSE; Start 10/09/18 at 15:00 Glucagon (Glucagen) 1 mg Q15M PRN IM DECREASED GLUCOSE; Start 10/09/18 at 15:00 Glucose (Glutose) 15 gm Q15M PRN BUCCAL DECREASED GLUCOSE; Start 10/09/18 at 15:00 Sodium Chloride 500 ml @ 500 mls/hr Q1H PRN IV BLOOD PRESSURE SUPPORT Last administered on 10/31/18 03:35; Admin Dose 500 MLS/HR; Start 10/09/18 at 19:30 Albuterol (Ventolin Hfa) 4 puff Q6H RESP THERAPY INH Last administered on 11/07/18 12:47; Admin Dose 4 PUFF; Start 10/10/18 at 02:00 Ipratropium [place] (Atrovent Hfa) 4 puff Q6H RESP THERAPY INH Last administered on 11/07/18 12:48; Admin Dose 4 PUFF; Start 10/10/18 at 02:00 Lorazepam (Ativan) 1 mg Q4H PRN GTB AGITATION/ANXIETY Last administered on 20:35; Admin Dose 1 MG; Start 10/14/18 at 13:00 Linagliptin (Tradjenta) 5 mg DAILY PO Last administered on 11/07/18 08:30; Admin Dose 5 MG; Start 10/16/18 at 10:30 Fentanyl (Duragesic 50 Mcg/Hr Patch) 1 patch Q72H TRANSDERM Last administered on 11/04/18 20:57; Admin Dose 1 PATCH; Start 10/17/18 at 20:30 Lorazepam (Ativan) 2 mg Q6H GTB Last administered on 11/07/18 09:54; Admin Dose 2 MG; Start 10/20/18 at 15:00 Quetiapine Fumarate (Seroquel) 100 mg BID GTB Last administered on 11/07/18 08:33; Admin Dose 100 MG; Start 10/21/18 at 21:00 Hydromorphone HCl (Dilaudid) 6 mg Q4H PRN PO MODERATE PAIN LEVEL 7-10 Last administered on 11/07/18 13:42; Admin Dose 6 MG; Start 10/21/18 at 22:00 Calcium Carbonate (Ca Carbonate) 1,250 mg QID GTB Last administered on 11/07/18 13:41; Admin Dose 1,250 MG; Start 10/24/18 at 13:00 Metoprolol Tartrate (Lopressor) 5 mg Q4H PRN IV HR>110 Hold SBP<100 Last administered on 11/06/18 16:17; Admin Dose 5 MG; Start 10/28/18 at 12:30 Carvedilol (Coreg) 3.125 mg BID PO Last administered on 11/07/18 08:33; Admin Dose 3.125 MG; Start 11/01/18 at 21:00 Phenylephrine HCl 40 mg/Dextrose 250 ml @ 37.5 mls/hr TITRATE IV Last administered on 11/02/18 09:05; Admin Dose 11.25 MLS/HR; Start 11/01/18 at 13:30 IV Flush (NS 10 ml) 10 ml PRN PRN IV IV PROTOCOL; Start 11/01/18 at 16:30 Collagenase (Santyl) 1 applic DAILY TOP Last administered on 11/07/18 09:54; Admin Dose 1 APPLIC; Start 11/01/18 at 19:30 Norepinephrine 32 mg/Dextrose 250 ml @ 0.47 mls/hr TITRATE IV Last administered on 11/02/18 12:15; Admin Dose 0.47 MLS/HR; Start 11/02/18 at 11:30 Midodrine (Proamatine) 5 mg TID@,,17 GTB Last administered on 3/25/19at 08:53; Admin Dose 5 MG; Start 11/03/18 at 09:00 Guaifenesin (Robitussin Liquid Cup) 100 mg Q4H PRN PO COUGH Last administered on 11/05/18at 20:31; Admin Dose 100 MG; Start 11/03/18 at 12:00 Hydrocortisone (Cortef) 20 mg QAM PEG Last administered on 11/07/18at 08:31; Admin Dose 20 MG; Start 11/04/18 at 09:00 Hydrocortisone (Cortef) 20 mg AC DINNER PEG Last administered on 11/06/18at 17:16; Admin Dose 20 MG; Start 11/04/18 at 17:05 Hydrocortisone (Cortef) 20 mg HS PEG Last administered on 11/06/18at 20:59; Admin Dose 20 MG; Start 11/03/18 at 22:45 Calcitriol (Rocaltrol) 1.5 mcg BID PO ; Start 11/07/18 at 21:00 CAROLYN LANGLEY Nov 07, 2018 17:38
--- NOTE | 2018-11-07 19:21 | CONS ---
Assessment/Plan Assessment/Plan Hospital Course (Demo Recall) # sepsis, respiratory - recurrent sepsis on 10/08/2018 due to aspiration pneumonia, HCAP, improved - possible aspiration pneumonia, recurrent pneumonia due to citrobacter, improved - acute on chronic hypoxic and hypercarbic respiratory failure - persistent leukocytosis likely due to steroid margination - h/o tracheostomy on 08/26/2018 - h/o "Increased mild left apical pneumothorax" per CXR on 09/19/2018; no pneumothorax mentioned on subsequent CXR - h/o pneumomediastinum - h/o VAT on 08/11/2018 - h/o asthma/COPD exacerbation - h/o acute tracheobronchitis - h/o MAC infection but CT chest did not demonstrate features suggestive of this per chart review - h/o HCAP due to citrobacter, based on resp culture on 09/13/2018 - h/o aspergillus growing out of resp culture per (pulm note by Dr. Alexia king) on 07/25/2018 - h/o elevated 1,3 [id number] level = 232 on 08/06/2018 - h/o MSSA septicemia # GI - diarrhea, C diff on 10/09/2018 was negative - h/o HSV esophagitis, took acyclovir x21 days from 08/26/2018 - h/o EGD, esophageal biopsy showed esophageal squamous mucosa showing acute inf lammation, granulation tissue, and ulceration consistent with ulcerative esophagitis, rare multinucleated cells with morphology suggestive of vial cytopathic changes, No cardiac mucosa, intestinal metaplasia, dysplasia, or malignancy defined - GERD - PUD # renal/ - Hypokalemia, recurrent - CKD 2 - BPH # cardiac - tachycardia, persistent - ACD - HTN - HLD # endo - T2DM - Hgb A1c 7.2% - secondary adrenal insufficiency; steroid dependent - Hypoparathyroidism - Hypercalcemia - Pamidronate was ordered # neuro - toxic metabolic encephalopathy - Cervical myopathy - Severe cervical spinal cord stenosis with cord compression from C3-C5, s/p laminectomy in ~03/2018 - Chronic pain syndrome - Functional quadriplegia - Seizure d/o # other chronic conditions - RA with chronic steroid dependence - Immunocompromised status - Fibromyalgia - DDD - H/o multiple rib fracture - Pt completed: meropenem (09/25/2018-10/02/2018), vancomycin (09/25/18-09/28/18), pip/tazo (10/09/2018-10/15/2018) - so far: pneumocystis antigen negative, AFB smear negative and culture x3 pending, quantiferon TB gold negative, coccidioides serology negative recommendations - continue Bactrim for pneumocystis PPX - continue to monitor off other systemic antibiotic management d/w Pt's ARIANNA Adorno the critical care time I took to care for this Pt today was from [id number] to 1915 Consultation Date/Type/Reason Admit Date/Time Oct 09, 2018 at 12:16 Initial Consult Date 10/09/18 Type of Consult ID Requesting Provider: NOLA VIDAL MD Date/Time of Note DATE: 11/07/18 TIME: 19:16 24 HR Interval Summary Subjective hx not possible: pt non-verbal, pt critical, pt critical status Exam/Review of Systems Exam Vitals Vital Signs Date Temp Pulse Resp B/P (MAP) Pulse Ox O2 O2 Flow FiO2 Time Delivery Rate 11/07/18 109 26 95 70 17:13 11/07/18 129/90 13:00 (103) 11/07/18 98.3 Mechanical 12:00 Ventilator Intake and Output 11/06/18 11/06/18 11/07/18 1414:59 22:59 06:59 IntakeIntake Total 490 ml 320 ml 520 ml OutputOutput Total 1148 ml 1060 ml 600 ml BalanceBalance -658 ml -740 ml -80 ml Constitutional: non-verbal, frail Psych: confusion Head: normocephalic, atraumatic Eyes: nl conjunctiva, nl lids, nl sclera ENMT: nl external ears & nose, nl nasal mucosa & septum, mucosa pink and moist Neck: other (trach) Respiratory: diminished breath sounds Cardiovascular: regular rate and rhythm, nl pulses Gastrointestinal: soft, non-tender, other (PEG); No distended, No tender Genitourinary - Male: other (Brody catheter) Musculoskeletal: No swelling Extremities: edema (b/l UEs) Neurological: lethargic Skin: rash or lesions (DTIs) Results Result Diagram: 11/07/18 0500 11/07/18 0500 Results 24hrs Laboratory Tests Test 11/06/18 21:14 11/07/18 05:00 11/07/18 08:27 11/07/18 15:12 Bedside Glucose 145 103 116 White Blood Count 14.5 H Red Blood Count 3.44 L Hemoglobin 9.9 L Hematocrit 32.8 L Mean Corpuscular 95.3 Volume Mean Corpuscular 28.8 L Hemoglobin Mean Corpuscular 30.2 L Hemoglobin Concent Red Cell 16.4 H Distribution Width Platelet Count 197 Mean Platelet Volume 11.4 H Immature 1.000 H Granulocytes % Neutrophils % 75.9 Lymphocytes % 5.1 L Monocytes % 7.5 Eosinophils % 10.0 H Basophils % 0.5 Nucleated Red Blood 0.0 Cells % Immature 0.150 H Granulocytes # Neutrophils # 11.0 H Lymphocytes # 0.7 L Monocytes # 1.1 H Eosinophils # 1.4 H Basophils # 0.1 Nucleated Red Blood 0.0 Cells # Sodium Level 140 Potassium Level 3.5 Chloride Level 94 L Carbon Dioxide Level 37 H Anion Gap 9 # Blood Urea Nitrogen 21 H Creatinine 0.28 L Est Glomerular > 60 Filtrat Rate mL/min Glucose Level 122 Calcium Level 6.7 L Phosphorus Level 3.5 Magnesium Level 1.7 Test 11/07/18 18:46 Bedside Glucose 129 Medications Medication Current Medications Acetaminophen (Tylenol Liquid) 650 mg Q4H PRN GTB MILD PAIN(1-3)OR ELEVATED TEMP Last administered on 11/05/18at 23:55; Admin Dose 650 MG; Start 10/09/18 at 14:00 Al Hydrox/Mg Hydrox/Simethicone (Mag-Al Plus) 15 ml Q6H PRN PO GASTROINTESTINAL UPSET Last administered on 10/17/18at 13:18; Admin Dose 15 ML; Start 10/09/18 at 14:00 Eye Lubricant (Artificial Tears Oph) 1 drop Q6H PRN BOTH EYES DRY EYES Last administered on 11/03/18at 09:33; Admin Dose 1 DROP; Start 10/09/18 at 14:00 Bisacodyl (Dulcolax Supp) 10 mg DAILY PRN [place] CONSTIPATION; Start 10/09/18 at 14:00 Clonidine (Catapres) 0.1 mg DAILY PRN GTB ELEVATED BLOOD PRESSURE; Start 10/09/18 at 14:00 Diltiazem HCl (Cardizem Iv) 5 mg Q4 PRN IV ELEVATED HEART RATE Last administered on 11/06/18at 18:47; Admin Dose 5 MG; Start 10/09/18 at 14:00 Diphenhydramine HCl (Benadryl Liquid Cup) 25 mg Q6 PRN GTB ITCHING Last administered on 10/22/18 20:25; Admin Dose 25 MG; Start 10/09/18 at 14:00 Duloxetine HCl (Cymbalta) 30 mg DAILY PO Last administered on 11/07/18 08:29; Admin Dose 30 MG; Start 10/10/18 at 09:00 Gabapentin (Neurontin Liquid) 400 mg Q8 GTB Last administered on 11/07/18 13 :45; Admin Dose 400 MG; Start 10/09/18 at 15:30 Hydralazine HCl (Apresoline) 10 mg Q4H PRN IV ELEVATED BLOOD PRESSURE; Start 10/09/18 at 14:00 Hydroxychloroquine Sulfate (Plaquenil) 200 mg BID PO Last administered on 11/07/18 08:33; Admin Dose 200 MG; Start 10/09/18 at 21:00 Diagnostic Test (Pha) (Accu-Chek) 1 ea 02 XX Last administered on 11/04/18 02:27; Admin Dose 1 EA; Start 10/10/18 at 02:00 Insulin Aspart (Novolog Insulin Pen) NOVOLOG *CUSTOM* ALGORITHM Q6H SC Last administered on 11/03/18 02:36; Admin Dose 1 UNIT; Start 10/09/18 at 14:00 Lactobacillus Acidophilus (Florajen3 Capsule) 1 each BID GTB Last administered on 11/07/18 08:52; Admin Dose 1 EACH; Start 10/09/18 at 21:00 Lansoprazole (Prevacid) 30 mg BID@,18 GTB Last administered on 11/07/18 18:38; Admin Dose 30 MG; Start 10/09/18 at 18:00 Levetiracetam (Keppra Liquid) 500 mg BID GTB Last administered on 11/07/18 08:29; Admin Dose 500 MG; Start 10/09/18 at 21:00 Magnesium Oxide (Mag-Ox 400) 400 mg BID GTB Last administered on 11/07/18 08:31; Admin Dose 400 MG; Start 10/09/18 at 21:00 Metoclopramide HCl (Reglan) 10 mg TID IV Last administered on 11/07/18at 13:41; Admin Dose 10 MG; Start 10/09/18 at 21:00 Miconazole Nitrate (Miconazole 2% Cr) 1 applic BID TOP Last administered on 11/07/18 08:52; Admin Dose 1 APPLIC; Start 10/09/18 at 21:00 Miconazole Nitrate (Miconazole 2% Cr) 1 applic Q12 PRN TOP rash; Start 10/09/18 at 14:00 Ondansetron HCl (Zofran Inj) 4 mg Q4H PRN IV NAUSEA AND/OR VOMITING Last administered on 10/19/18at 16:37; Admin Dose 4 MG; Start 10/09/18 at 14:00 Polyethylene Glycol (Miralax) 17 gm DAILY PRN GTB CONSTIPATION; Start 10/09/18 at 14:00 Senna (Senokot) 2 tab Q8 PRN PO CONSTIPATION; Start 10/09/18 at 14:00 Trimethoprim/ Sulfamethoxazole (Bactrim Susp) 40 ml DAILY GTB Last administered on 11/07/18at 08:35; Admin Dose 40 ML; Start 10/10/18 at 09:00 Zolpidem Tartrate (Ambien) 5 mg HS PRN PO INSOMNIA Last administered on 11/03/18at 01:16; Admin Dose 5 MG; Start 10/09/18 at 14:00 Miscellaneous Information 1 ea NOTE XX ; Start 10/09/18 at 15:00 Glucose (Glutose) 15 gm Q15M PRN PO DECREASED GLUCOSE; Start 10/09/18 at 15:00 Glucose (Glutose) 22.5 gm Q15M PRN PO DECREASED GLUCOSE; Start 10/09/18 at 15:00 Dextrose (D50w Syringe) 25 ml Q15M PRN IV DECREASED GLUCOSE; Start 10/09/18 at 15:00 Dextrose (D50w Syringe) 50 ml Q15M PRN IV DECREASED GLUCOSE; Start 10/09/18 at 15:00 Glucagon (Glucagen) 1 mg Q15M PRN IM DECREASED GLUCOSE; Start 10/09/18 at 15:00 Glucose (Glutose) 15 gm Q15M PRN BUCCAL DECREASED GLUCOSE; Start 10/09/18 at 15:00 Sodium Chloride 500 ml @ 500 mls/hr Q1H PRN IV BLOOD PRESSURE SUPPORT Last administered on 10/31/18 03:35; Admin Dose 500 MLS/HR; Start 10/09/18 at 19:30 Albuterol (Ventolin Hfa) 4 puff Q6H RESP THERAPY INH Last administered on 11/07/18 12:47; Admin Dose 4 PUFF; Start 10/10/18 at 02:00 Ipratropium [place] (Atrovent Hfa) 4 puff Q6H RESP THERAPY INH Last administered on 11/07/18 12:48; Admin Dose 4 PUFF; Start 10/10/18 at 02:00 Lorazepam (Ativan) 1 mg Q4H PRN GTB AGITATION/ANXIETY Last administered on 11/05/18 20:35; Admin Dose 1 MG; Start 10/14/18 at 13:00 Linagliptin (Tradjenta) 5 mg DAILY PO Last administered on 11/07/18 08:30; Admin Dose 5 MG; Start 10/16/18 at 10:30 Fentanyl (Duragesic 50 Mcg/Hr Patch) 1 patch Q72H TRANSDERM Last administered on 11/04/18 20:57; Admin Dose 1 PATCH; Start 10/17/18 at 20:30 Lorazepam (Ativan) 2 mg Q6H GTB Last administered on 11/07/18 19:13; Admin Dose 2 MG; Start 10/20/18 at 15:00 Quetiapine Fumarate (Seroquel) 100 mg BID GTB Last administered on 11/07/18 08:33; Admin Dose 100 MG; Start 10/21/18 at 21:00 Hydromorphone HCl (Dilaudid) 6 mg Q4H PRN PO MODERATE PAIN LEVEL 7-10 Last administered on 11/07/18 18:38; Admin Dose 6 MG; Start 10/21/18 at 22:00 Calcium Carbonate (Ca Carbonate) 1,250 mg QID GTB Last administered on 11/07/18 18:37; Admin Dose 1,250 MG; Start 10/24/18 at 13:00 Metoprolol Tartrate (Lopressor) 5 mg Q4H PRN IV HR>110 Hold SBP<100 Last a dministered on 11/06/18 16:17; Admin Dose 5 MG; Start 10/28/18 at 12:30 Carvedilol (Coreg) 3.125 mg BID PO Last administered on 11/07/18 08:33; Admin Dose 3.125 MG; Start 11/01/18 at 21:00 Phenylephrine HCl 40 mg/Dextrose 250 ml @ 37.5 mls/hr TITRATE IV Last administered on 11/02/18 09:05; Admin Dose 11.25 MLS/HR; Start 11/01/18 at 13:30 IV Flush (NS 10 ml) 10 ml PRN PRN IV IV PROTOCOL; Start 11/01/18 at 16:30 Collagenase (Santyl) 1 applic DAILY TOP Last administered on 11/07/18 09:54; Admin Dose 1 APPLIC; Start 11/01/18 at 19:30 Norepinephrine 32 mg/Dextrose 250 ml @ 0.47 mls/hr TITRATE IV Last administered on 11/02/18 12:15; Admin Dose 0.47 MLS/HR; Start 11/02/18 at 11:30 Midodrine (Proamatine) 5 mg TID@,13,17 GTB Last administered on 11/07/18 08:53; Admin Dose 5 MG; Start 11/03/18 at 09:00 Guaifenesin (Robitussin Liquid Cup) 100 mg Q4H PRN PO COUGH Last administered o n 11/05/18 20:31; Admin Dose 100 MG; Start 11/03/18 at 12:00 Hydrocortisone (Cortef) 20 mg QAM PEG Last administered on 11/07/18 08:31; Admin Dose 20 MG; Start 11/04/18 at 09:00 Hydrocortisone (Cortef) 20 mg AC DINNER PEG Last administered on 11/07/18 18:38; Admin Dose 20 MG; Start 11/04/18 at 17:05 Hydrocortisone (Cortef) 20 mg HS PEG Last administered on 11/06/18 20:59; Admin Dose 20 MG; Start 11/03/18 at 22:45 Calcitriol (Rocaltrol) 1.5 mcg BID PO ; Start 11/07/18 at 21:00 NEMO MARTINEZ M.D. Nov 07, 2018 19:21
[2018-11-07] MEDS: FENTAnyl PATCH 50 MCG/HR TRANSDERM SCH (20:47)
[2018-11-08] VITALS (36 sets, daily range): BP systolic 99–166; BP diastolic 68–109; PULSE 97–123; RESP 16–34
[2018-11-08] MEDS: HYDROmorphONE 2 MG TAB PO PRN ×5 (00:52→19:06)
[2018-11-08] MEDS: GABAPENTIN (50 MG/ML PO SYG) GTB SCH ×4 (00:52→21:33)
[2018-11-08] MEDS: IPRATROPIUM (HFA) 12.9 GM INHALER INH SCH ×4 (01:29→20:20)
[2018-11-08] MEDS: ALBUTEROL HFA 8 GM INHALER INH SCH ×4 (01:29→20:20)
[2018-11-08] MEDS: ACCU-CHEK XX SCH (02:00)
[2018-11-08] MEDS: INSULIN ASPART [NOVOLOG] 3 ML PEN SC SCH ×4 (02:22→20:00)
[2018-11-08] MEDS: LORAZEPAM 1 MG TAB GTB SCH ×4 (03:42→21:32)
[2018-11-08] MEDS: LANSOPRAZOLE 30 MG CAP GTB SCH ×2 (05:49→17:11)
--- NOTE | 2018-11-08 08:01 | CONS ---
Assessment/Plan Assessment/Plan Hospital Course (Demo Recall) 53 yo male pt in [place] transferred to ICU for increased O2 demands Interval History-FiO2 60% and has episodes of desaturation. Ativan PO and dilaudid PO around the clock for anxiety. Brown/green stool through rectal tube. No stool over night. Pt denies abd pain or nausea. Does c/o gas at times. Hgb 9.9 1. Respiratory failure secondary to pneumonia versus interstitial pneumonitis from rheumatoid arthritis versus mild aspiration. -on Bactrim 2. Severe rheumatoid arthritis. 3. Quadriplegia. 4. Adrenal insufficiency. 5. Gastroparesis. -Reglan, denies nausea 6. Hypothyroidism. 7. Chronic pain syndrome. 8. Hypertension. 9. 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 Leukocytosis secondary to steroids 11.ARDS 12. Anxiety -on PO ativan PLAN: Re check FOB Continue supportive ICU care Nothing by mouth per swallow eval results Continue with tube feeds check residuals q 4 hours Continue Reglan. Aspiration precautions. So far there is no evidence of aspiration. If anytime there is evidence of aspiration will convert G-tube to J-tube Pt examined and plan of care discussed with Dr. Minaya Consultation Date/Type/Reason Admit Date/Time Oct 09, 2018 at 12:16 Initial Consult Date 10/09/18 Requesting Provider: NOLA VIDAL MD Date/Time of Note DATE: 11/08/18 TIME: 07:59 Exam/Review of Systems Exam Vitals Vital Signs Date Temp Pulse Resp B/P (MAP) Pulse Ox O2 O2 Flow FiO2 Time Delivery Rate 11/08/18 113 27 143/103 94 Mechanical 06:00 (116) Ventilator 11/08/18 70 05:16 11/08/18 98.5 04:00 Intake and Output 11/07/18 11/07/18 11/08/18 1515:00 23:00 07:00 IntakeIntake Total 780 ml 340 ml OutputOutput Total 40 ml 460 ml 275 ml BalanceBalance -40 ml 320 ml 65 ml Constitutional: alert, oriented Psych: no complaints Head: normocephalic Eyes: nl sclera, PERRL Respiratory: normal air movement Cardiovascular: other (sinus tach) Gastrointestinal: soft, non-tender Musculoskeletal: muscle weakness Neurological: nl mental status Results Result Diagram: 11/07/18 0500 11/07/18 0500 Results 24hrs Laboratory Tests Test 11/07/18 08:27 11/07/18 15:12 11/07/18 18:46 11/07/18 20:11 Bedside Glucose 103 116 129 130 Test 11/08/18 02:09 11/08/18 07:57 Bedside Glucose 151 102 Medications Medication Current Medications Acetaminophen (Tylenol Liquid) 650 mg Q4H PRN GTB MILD PAIN(1-3)OR ELEVATED TEMP Last administered on 11/05/18 23:55; Admin Dose 650 MG; Start 10/09/18 at 14:00 Al Hydrox/Mg Hydrox/Simethicone (Mag-Al Plus) 15 ml Q6H PRN PO GASTROINTESTINAL UPSET Last administered on 10/17/18 13:18; Admin Dose 15 ML; Start 10/09/18 at 14:00 Eye Lubricant (Artificial Tears Oph) 1 drop Q6H PRN BOTH EYES DRY EYES Last administered on 11/03/18 09:33; Admin Dose 1 DROP; Start 10/09/18 at 14:00 Bisacodyl (Dulcolax Supp) 10 mg DAILY PRN [place] CONSTIPATION; Start 10/09/18 at 14:00 Clonidine (Catapres) 0.1 mg DAILY PRN GTB ELEVATED BLOOD PRESSURE; Start 10/09/18 at 14:00 Diltiazem HCl (Cardizem Iv) 5 mg Q4 PRN IV ELEVATED HEART RATE Last administered on 11/06/18 18:47; Admin Dose 5 MG; Start 10/09/18 at 14:00 Diphenhydramine HCl (Benadryl Liquid Cup) 25 mg Q6 PRN GTB ITCHING Last administered on 10/22/18 20:25; Admin Dose 25 MG; Start 10/09/18 at 14:00 Duloxetine HCl (Cymbalta) 30 mg DAILY PO Last administered on 11/07/18 08:29; Admin Dose 30 MG; Start 10/10/18 at 09:00 Gabapentin (Neurontin Liquid) 400 mg Q8 GTB Last administered on 11/08/18 06:32; Admin Dose 400 MG; Start 10/09/18 at 15:30 Hydralazine HCl (Apresoline) 10 mg Q4H PRN IV ELEVATED BLOOD PRESSURE; Start 10/09/18 at 14:00 Hydroxychloroquine Sulfate (Plaquenil) 200 mg BID PO Last administered on 11/07/18 20:13; Admin Dose 200 MG; Start 10/09/18 at 21:00 Diagnostic Test (Pha) (Accu-Chek) 1 ea 02 XX Last administered on 11/04/18 02:27; Admin Dose 1 EA; Start 10/10/18 at 02:00 Insulin Aspart (Novolog Insulin Pen) NOVOLOG *CUSTOM* ALGORITHM Q6H SC Last administered on 11/08/18 02:22; Admin Dose 1 UNIT; Start 10/09/18 at 14:00 Lactobacillus Acidophilus (Florajen3 Capsule) 1 each BID GTB Last administered on 11/07/18 20:12; Admin Dose 1 EACH; Start 10/09/18 at 21:00 Lansoprazole (Prevacid) 30 mg BID@,18 GTB Last administered on 11/08/18 0 5:49; Admin Dose 30 MG; Start 10/09/18 at 18:00 Levetiracetam (Keppra Liquid) 500 mg BID GTB Last administered on 11/07/18 20:12; Admin Dose 500 MG; Start 10/09/18 at 21:00 Magnesium Oxide (Mag-Ox 400) 400 mg BID GTB Last administered on 11/07/18 20:13; Admin Dose 400 MG; Start 10/09/18 at 21:00 Metoclopramide HCl (Reglan) 10 mg TID IV Last administered on 11/07/18 20:12; Admin Dose 10 MG; Start 10/09/18 at 21:00 Miconazole Nitrate (Miconazole 2% Cr) 1 applic BID TOP Last administered on 11/07/18 20:14; Admin Dose 1 APPLIC; Start 10/09/18 at 21:00 Miconazole Nitrate (Miconazole 2% Cr) 1 applic Q12 PRN TOP rash; Start 10/09/18 at 14:00 Ondansetron HCl (Zofran Inj) 4 mg Q4H PRN IV NAUSEA AND/OR VOMITING Last administered on 10/19/18 16:37; Admin Dose 4 MG; Start 10/09/18 at 14:00 Polyethylene Glycol (Miralax) 17 gm DAILY PRN GTB CONSTIPATION; Start 10/09/18 at 14:00 Senna (Senokot) 2 tab Q8 PRN PO CONSTIPATION; Start 10/09/18 at 14:00 Trimethoprim/ Sulfamethoxazole (Bactrim Susp) 40 ml DAILY GTB Last administered on 11/07/18at 08:35; Admin Dose 40 ML; Start 10/10/18 at 09:00 Zolpidem Tartrate (Ambien) 5 mg HS PRN PO INSOMNIA Last administered on 11/03/18at 01:16; Admin Dose 5 MG; Start 10/09/18 at 14:00 Miscellaneous Information 1 ea NOTE XX ; Start 10/09/18 at 15:00 Glucose (Glutose) 15 gm Q15M PRN PO DECREASED GLUCOSE; Start 10/09/18 at 15:00 Glucose (Glutose) 22.5 gm Q15M PRN PO DECREASED GLUCOSE; Start 10/09/18 at 15:00 Dextrose (D50w Syringe) 25 ml Q15M PRN IV DECREASED GLUCOSE; Start 10/09/18 at 15:00 Dextrose (D50w Syringe) 50 ml Q15M PRN IV DECREASED GLUCOSE; Start 10/09/18 at 15:00 Glucagon (Glucagen) 1 mg Q15M PRN IM DECREASED GLUCOSE; Start 10/09/18 at 15:00 Glucose (Glutose) 15 gm Q15M PRN BUCCAL DECREASED GLUCOSE; Start 10/09/18 at 15:00 Sodium Chloride 500 ml @ 500 mls/hr Q1H PRN IV BLOOD PRESSURE SUPPORT Last administered on 10/31/18at 03:35; Admin Dose 500 MLS/HR; Start 10/09/18 at 19:30 Albuterol (Ventolin Hfa) 4 puff Q6H RESP THERAPY INH Last administered on 11/08/18 07:33; Admin Dose 4 PUFF; Start 10/10/18 at 02:00 Ipratropium [place] (Atrovent Hfa) 4 puff Q6H RESP THERAPY INH Last administered on 11/08/18at 07:33; Admin Dose 4 PUFF; Start 10/10/18 at 02:00 Lorazepam (Ativan) 1 mg Q4H PRN GTB AGITATION/ANXIETY Last administered on 11/05/18at 20:35; Admin Dose 1 MG; Start 10/14/18 at 13:00 Linagliptin (Tradjenta) 5 mg DAILY PO Last administered on 11/07/18 08:30; Admin Dose 5 MG; Start 10/16/18 at 10:30 Fentanyl (Duragesic 50 Mcg/Hr Patch) 1 patch Q72H TRANSDERM Last administered on 11/07/18 20:47; Admin Dose 1 PATCH; Start 10/17/18 at 20:30 Lorazepam (Ativan) 2 mg Q6H GTB Last administered on 11/08/18 03:42; Admin Dose 2 MG; Start 10/20/18 at 15:00 Quetiapine Fumarate (Seroquel) 100 mg BID GTB Last administered on 11/07/18 20:13; Admin Dose 100 MG; Start 10/21/18 at 21:00 Hydromorphone HCl (Dilaudid) 6 mg Q4H PRN PO MODERATE PAIN LEVEL 7-10 Last administered on 11/08/18 05:49; Admin Dose 6 MG; Start 10/21/18 at 22:00 Calcium Carbonate (Ca Carbonate) 1,250 mg QID GTB Last administered on 11/07/18 20:12; Admin Dose 1,250 MG; Start 10/24/18 at 13:00 Metoprolol Tartrate (Lopressor) 5 mg Q4H PRN IV HR>110 Hold SBP<100 Last administered on 11/06/18 16:17; Admin Dose 5 MG; Start 10/28/18 at 12:30 Carvedilol (Coreg) 3.125 mg BID PO Last administered on 11/07/18 20:14; Admin Dose 3.125 MG; Start 11/01/18 at 21:00 Phenylephrine HCl 40 mg/Dextrose 250 ml @ 37.5 mls/hr TITRATE IV Last administered on 11/02/18 09:05; Admin Dose 11.25 MLS/HR; Start 11/01/18 at 13:30 IV Flush (NS 10 ml) 10 ml PRN PRN IV IV PROTOCOL; Start 11/01/18 at 16:30 Collagenase (Santyl) 1 applic DAILY TOP Last administered on 11/07/18 09:54; Admin Dose 1 APPLIC; Start 11/01/18 at 19:30 Norepinephrine 32 mg/Dextrose 250 ml @ 0.47 mls/hr TITRATE IV Last administered on 11/02/18 12:15; Admin Dose 0.47 MLS/HR; Start 11/02/18 at 11:30 Midodrine (Proamatine) 5 mg TID@,13,17 GTB Last administered on 11/07/18 08:53; Admin Dose 5 MG; Start 11/03/18 at 09:00 Guaifenesin (Robitussin Liquid Cup) 100 mg Q4H PRN PO COUGH Last administered on 11/05/18 20:31; Admin Dose 100 MG; Start 11/03/18 at 12:00 Hydrocortisone (Cortef) 20 mg QAM PEG Last administered on 11/07/18 08:31; Admin Dose 20 MG; Start 11/04/18 at 09:00 Hydrocortisone (Cortef) 20 mg AC DINNER PEG Last administered on 11/07/18 18:38; Admin Dose 20 MG; Start 11/04/18 at 17:05 Hydrocortisone (Cortef) 20 mg HS PEG Last administered on 11/07/18 20:12; Admin Dose 20 MG; Start 11/03/18 at 22:45 Calcitriol (Rocaltrol) 1.5 mcg BID PO Last administered on 11/07/18 20:12; Admin Dose 1.5 MCG; Start 11/07/18 at 21:00 MARYANN HACKETT Nov 08, 2018 08:01
[2018-11-08] MEDS: CA CARBONATE (250 MG/ML) 5ML CUP GTB SCH ×4 (08:17→21:31)
[2018-11-08] MEDS: QUETIAPINE 100 MG TAB GTB SCH ×2 (08:18→21:32)
[2018-11-08] MEDS: CALCITRIOL 0.5 MCG CAPSULE PO SCH ×2 (08:18→22:00)
[2018-11-08] MEDS: LINAGLIPTIN 5 MG TABLET PO SCH (08:18)
[2018-11-08] MEDS: HYDROCORTISONE 20 MG TAB PEG SCH ×3 (08:18→21:32)
[2018-11-08] MEDS: L ACIDOPHIL/B LACTIS/B LONGUM CAPSULE GTB SCH ×2 (08:18→21:32)
[2018-11-08] MEDS: LEVETIRACETAM (100 MG/ML) 5ML CUP GTB SCH ×2 (08:18→21:31)
[2018-11-08] MEDS: MAGNESIUM OXIDE 400 MG TAB GTB SCH ×2 (08:19→21:34)
[2018-11-08] MEDS: METOCLOPRAMIDE 10 MG INJ IV SCH ×3 (08:19→21:32)
[2018-11-08] MEDS: COLLAGENASE 5 GM (UD JAR) TOP SCH (08:19)
[2018-11-08] MEDS: DULOXETINE 30 MG CAP DR PO SCH (08:19)
[2018-11-08] MEDS: HYDROXYCHLOROQUINE 200 MG TAB PO SCH ×2 (08:19→21:32)
[2018-11-08] MEDS: BALSAM PERU/CASTOR OIL 60 GM TUBE TOP SCH ×2 (08:20→21:37)
[2018-11-08] MEDS: MIDODRINE 5 MG TAB GTB SCH ×3 (08:21→17:00)
--- NOTE | 2018-11-08 09:01 | PN ---
DATE: 11/08/2018 SUBJECTIVE: The patient remains stable on full ventilatory support. FIO2 70%. No other acute event s noted overnight. OBJECTIVE: VITAL SIGNS: Blood pressure is 143/103, respirations 26, pulse 113, temperature 98.5. HEENT: Head is normocephalic. NECK: Supple. HEART: Regular rate. LUNGS: Show diminished breath sounds at the base. ABDOMEN: Soft, nontender to palpation without rebound or guarding. EXTREMITIES: Negative for clubbing, cyanosis, no edema. DERMATOLOGIC: No rashes. MUSCULOSKELETAL: No joint effusion. NEUROLOGIC: No change in exam. MEDICATIONS: Reviewed. LABORATORY DATA: Reviewed. ASSESSMENT AND PLAN: 1. Nonoliguric acute kidney injury with previously normal baseline creatinine. Etiology of acute ki dney injury is secondary to hemodynamics. Renal function is improved. Continue to monitor. 2. Volume overload, improved. We will give intermittent diuretic therapy as needed. 3. Ventilator-dependent respiratory failure. Vent settings and ABG was reviewed. Continue to monit or. 4. Renal insufficiency. Continue Cortef. 5. Hypertension, improved. 6. Dysphagia, status post PEG. Continue tube feeding. 7. Seizure disorder. 8. Anxiety disorder. 9. Hypomagnesemia. Continue to monitor and replete. 10. Mineral bone disorder. Continue vitamin D analogs. Follow up with endocrinology. 11. Status post shock. Dictated By: UNA ROY DO NR/NTS Conf#: [id number] DID#: [id number] CC: NOLA VIDAL MD; CAMELIA VALENTINE MD;*End*
--- NOTE | 2018-11-08 09:24 | CONS ---
Assessment/Plan Assessment/Plan Assessment/Plan (Daily) Ventilator setting; AC of 20, PEEP of 8, 70% FiO2 pressure controlled. Assessment and recommendations; 1. Patient admitted with worsening hypoxemia with history of ARDS and VDR F. 2. Status post treatment for presumed pneumonia. On a background of fibrotic changes difficult to rule out any acute infiltrates. Patient now off antibiotics. 3. History of HSV esophagitis. 4. History of hypertension. 5. Stable seizure disorder. 6. Anemia. 7. Neuropathy. 8. History of incomplete quadriplegia. 9. Worsening hypoxemia and hypercapnia. Continue current supportive care. Prognosis is extremely poor. Consultation Date/Type/Reason Admit Date/Time Oct 09, 2018 at 12:16 Initial Consult Date 10/12/18 Type of Consult Pulmonary/critical care Patient's condition is stable. Remains completely awake and alert. Has remaine d hemodynamically stable. Patient also has been switched over to volume control ventilation from pressure-controlled mode. General exam; middle-aged male, on ventilator via tracheostomy, awake and alert. Watching television. Currently in no distress. Area Requesting Provider: NOLA VIDLA MD Date/Time of Note DATE: 11/08/18 TIME: 09:22 24 HR Interval Summary Free Text/Dictation Patient's condition remains stable. Still on pressure control mode of ventilation with high FiO2 and high PEEP. Patient has remained hemodynamically stable. General exam; middle-aged male, on ventilator via tracheostomy, awake and alert. Currently in no distress. Appropriately communicative. Exam/Review of Systems Exam Vitals Vital Signs Date Temp Pulse Resp B/P (MAP) Pulse Ox O2 O2 Flow FiO2 Time Delivery Rate 11/08/18 60 08:00 11/08/18 98.4 108 20 142/94 96 Mechanical 08:00 (110) Ventilator Intake and Output 11/07/18 11/07/18 11/08/18 1515:00 23:00 07:00 IntakeIntake Total 780 ml 340 ml OutputOutput Total 40 ml 460 ml 275 ml BalanceBalance -40 ml 320 ml 65 ml Exam HEENT exam; supple neck, no JVD. No lymphadenopathy. Midline trachea. No thyromegaly. Patient is edentulous. Tracheostomy in place. Insertion site is clean. Chest exam; diminished breath sounds bilaterally with scattered crackles. S1-S2 audible, no murmurs. Regular rhythm. Abdomen exam; soft, G-tube in place. Nondistended. No organomegaly. Bowel sounds audible. Extremity exam; no peripheral edema. 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 Results Result Diagram: 11/07/18 0500 11/07/18 0500 Results 24hrs Laboratory Tests Test 11/07/18 15:12 11/07/18 18:46 11/07/18 20:11 11/08/18 02:09 Bedside Glucose 116 129 130 151 Test 11/08/18 07:57 Bedside Glucose 102 Medications Medication Current Medications Acetaminophen (Tylenol Liquid) 650 mg Q4H PRN GTB MILD PAIN(1-3)OR ELEVATED TEMP Last administered on 11/05/18at 23:55; Admin Dose 650 MG; Start 10/09/18 at 14:00 Al Hydrox/Mg Hydrox/Simethicone (Mag-Al Plus) 15 ml Q6H PRN PO GASTROINTESTINAL UPSET Last administered on 10/17/18 13:18; Admin Dose 15 ML; Start 10/09/18 at 14:00 Eye Lubricant (Artificial Tears Oph) 1 drop Q6H PRN BOTH EYES DRY EYES Last administered on 11/03/18 09:33; Admin Dose 1 DROP; Start 10/09/18 at 14:00 Bisacodyl (Dulcolax Supp) 10 mg DAILY PRN [place] CONSTIPATION; Start 10/09/18 at 1 4:00 Clonidine (Catapres) 0.1 mg DAILY PRN GTB ELEVATED BLOOD PRESSURE; Start 10/09/18 at 14:00 Diltiazem HCl (Cardizem Iv) 5 mg Q4 PRN IV ELEVATED HEART RATE Last administered on 11/06/18 18:47; Admin Dose 5 MG; Start 10/09/18 at 14:00 Diphenhydramine HCl (Benadryl Liquid Cup) 25 mg Q6 PRN GTB ITCHING Last administered on 10/22/18 20:25; Admin Dose 25 MG; Start 10/09/18 at 14:00 Duloxetine HCl (Cymbalta) 30 mg DAILY PO Last administered on 11/08/18at 08:19; Admin Dose 30 MG; Start 10/10/18 at 09:00 Gabapentin (Neurontin Liquid) 400 mg Q8 GTB Last administered on 11/08/18 06:32; Admin Dose 400 MG; Start 10/09/18 at 15:30 Hydralazine HCl (Apresoline) 10 mg Q4H PRN IV ELEVATED BLOOD PRESSURE; Start 10/09/18 at 14:00 Hydroxychloroquine Sulfate (Plaquenil) 200 mg BID PO Last administered on 11/08/18 08:19; Admin Dose 200 MG; Start 10/09/18 at 21:00 Diagnostic Test (Pha) (Accu-Chek) 1 ea 02 XX Last administered on 11/04/18 02:27; Admin Dose 1 EA; Start 10/10/18 at 02:00 Insulin Aspart (Novolog Insulin Pen) NOVOLOG *CUSTOM* ALGORITHM Q6H SC Last administered on 11/08/18 02:22; Admin Dose 1 UNIT; Start 10/09/18 at 14:00 Lactobacillus Acidophilus (Florajen3 Capsule) 1 each BID GTB Last administered on 11/08/18 08:18; Admin Dose 1 EACH; Start 10/09/18 at 21:00 Lansoprazole (Prevacid) 30 mg BID@06,18 GTB Last administered on 11/08/18 05:49; Admin Dose 30 MG; Start 10/09/18 at 18:00 Levetiracetam (Keppra Liquid) 500 mg BID GTB Last administered on 11/08/18 08:18; Admin Dose 500 MG; Start 10/09/18 at 21:00 Magnesium Oxide (Mag-Ox 400) 400 mg BID GTB Last administered on 11/08/18 08:19; Admin Dose 400 MG; Start 10/09/18 at 21:00 Metoclopramide HCl (Reglan) 10 mg TID IV Last administered on 11/08/18 08:19; Admin Dose 10 MG; Start 10/09/18 at 21:00 Miconazole Nitrate (Miconazole 2% Cr) 1 applic BID TOP Last administered on 11/07/18 20:14; Admin Dose 1 APPLIC; Start 10/09/18 at 21:00 Miconazole Nitrate (Miconazole 2% Cr) 1 applic Q12 PRN TOP rash; Start 10/09/18 at 14:00 Ondansetron HCl (Zofran Inj) 4 mg Q4H PRN IV NAUSEA AND/OR VOMITING Last administered on 10/19/18at 16:37; Admin Dose 4 MG; Start 10/09/18 at 14:00 Polyethylene Glycol (Miralax) 17 gm DAILY PRN GTB CONSTIPATION; Start 10/09/18 at 14:00 Senna (Senokot) 2 tab Q8 PRN PO CONSTIPATION; Start 10/09/18 at 14:00 Trimethoprim/ Sulfamethoxazole (Bactrim Susp) 40 ml DAILY GTB Last administered on 11/07/18at 08:35; Admin Dose 40 ML; Start 10/10/18 at 09:00 Zolpidem Tartrate (Ambien) 5 mg HS PRN PO INSOMNIA Last administered on 11/03/18at 01:16; Admin Dose 5 MG; Start 10/09/18 at 14:00 Miscellaneous Information 1 ea NOTE XX ; Start 10/09/18 at 15:00 Glucose (Glutose) 15 gm Q15M PRN PO DECREASED GLUCOSE; Start 10/09/18 at 15:00 Glucose (Glutose) 22.5 gm Q15M PRN PO DECREASED GLUCOSE; Start 10/09/18 at 15:00 Dextrose (D50w Syringe) 25 ml Q15M PRN IV DECREASED GLUCOSE; Start 10/09/18 at 15:00 Dextrose (D50w Syringe) 50 ml Q15M PRN IV DECREASED GLUCOSE; Start 10/09/18 at 15:00 Glucagon (Glucagen) 1 mg Q15M PRN IM DECREASED GLUCOSE; Start 10/09/18 at 15:00 Glucose (Glutose) 15 gm Q15M PRN BUCCAL DECREASED GLUCOSE; Start 10/09/18 at 15:00 Sodium Chloride 500 ml @ 500 mls/hr Q1H PRN IV BLOOD PRESSURE SUPPORT Last administered on 10/31/18at 03:35; Admin Dose 500 MLS/HR; Start 10/09/18 at 19:30 Albuterol (Ventolin Hfa) 4 puff Q6H RESP THERAPY INH Last administered on 11/08/18 07:33; Admin Dose 4 PUFF; Start 10/10/18 at 02:00 Ipratropium [place] (Atrovent Hfa) 4 puff Q6H RESP THERAPY INH Last administered on 11/08/18at 07:33; Admin Dose 4 PUFF; Start 10/10/18 at 02:00 Lorazepam (Ativan) 1 mg Q4H PRN GTB AGITATION/ANXIETY Last administered on 11/05/18 20:35; Admin Dose 1 MG; Start 10/14/18 at 13:00 Linagliptin (Tradjenta) 5 mg DAILY PO Last administered on 11/08/18 08:18; Admin Dose 5 MG; Start 10/16/18 at 10:30 Fentanyl (Duragesic 50 Mcg/Hr Patch) 1 patch Q72H TRANSDERM Last administered on 11/07/18 20:47; Admin Dose 1 PATCH; Start 10/17/18 at 20:30 Lorazepam (Ativan) 2 mg Q6H GTB Last administered on 11/08/18 08:18; Admin Dose 2 MG; Start 10/20/18 at 15:00 Quetiapine Fumarate (Seroquel) 100 mg BID GTB Last administered on 11/08/18 08:18; Admin Dose 100 MG; Start 10/21/18 at 21:00 Hydromorphone HCl (Dilaudid) 6 mg Q4H PRN PO MODERATE PAIN LEVEL 7-10 Last administered on 11/08/18 05:49; Admin Dose 6 MG; Start 10/21/18 at 22:00 Calcium Carbonate (Ca Carbonate) 1,250 mg QID GTB Last administered on 11/08/18 08:17; Admin Dose 1,250 MG; Start 10/24/18 at 13:00 Metoprolol Tartrate (Lopressor) 5 mg Q4H PRN IV HR>110 Hold SBP<100 Last administered on 11/06/18 16:17; Admin Dose 5 MG; Start 10/28/18 at 12:30 Carvedilol (Coreg) 3.125 mg BID PO Last administered on 11/08/18 08:19; Admin Dose 3.125 MG; Start 11/01/18 at 21:00 Phenylephrine HCl 40 mg/Dextrose 250 ml @ 37.5 mls/hr TITRATE IV Last administered on 11/02/18 09:05; Admin Dose 11.25 MLS/HR; Start 11/01/18 at 13:30 IV Flush (NS 10 ml) 10 ml PRN PRN IV IV PROTOCOL; Start 11/01/18 at 16:30 Collagenase (Santyl) 1 applic DAILY TOP Last administered on 11/08/18 08:19; Admin Dose 1 APPLIC; Start 11/01/18 at 19:30 Norepinephrine 32 mg/Dextrose 250 ml @ 0.47 mls/hr TITRATE IV Last administered on 11/02/18 12:15; Admin Dose 0.47 MLS/HR; Start 11/02/18 at 11:30 Midodrine (Proamatine) 5 mg TID@09,13,17 GTB Last administered on 11/07/18 08:53; Admin Dose 5 MG; Start 11/03/18 at 09:00 Guaifenesin (Robitussin Liquid Cup) 100 mg Q4H PRN PO COUGH Last administered on 11/05/18 20:31; Admin Dose 100 MG; Start 11/03/18 at 12:00 Hydrocortisone (Cortef) 20 mg QAM PEG Last administered on 11/08/18 08:18; Admin Dose 20 MG; Start 11/04/18 at 09:00 Hydrocortisone (Cortef) 20 mg AC DINNER PEG Last administered on 11/07/18 18:38; Admin Dose 20 MG; Start 11/04/18 at 17:05 Hydrocortisone (Cortef) 20 mg HS PEG Last administered on 11/07/18 20:12; Admin Dose 20 MG; Start 11/03/18 at 22:45 Calcitriol (Rocaltrol) 1.5 mcg BID PO Last administered on 11/08/18 08:18; Admin Dose 1.5 MCG; Start 11/07/18 at 21:00 PILAR BERGER Nov 08, 2018 09:24
[2018-11-08] MEDS: TRIMETHOPRIM/SULFAMETHOX (PO SYG) GTB SCH (09:43)
[2018-11-08] MEDS: MICONAZOLE 2% 30 GM CR TOP SCH ×2 (09:44→21:35)
--- NOTE | 2018-11-08 12:23 | CONS ---
Assessment/Plan Assessment/Plan Assessment/Plan (Daily) Medical History: diabetes, hypertension, renal disease, other (COPD, RA, spinal stenosis, neuropathy, cervical myelopathy with cervical radiculopathy, chronic pain syndrome, tracheobronchitis, fibromyalgia, MAC infection, anemia, chronic steroid therapy) Respiratory failure Status post trach Pneumonia Normal mental status patient able to make his own decisions for ongoing level of care Family opted to continue with this level of care but no cardiopulmonary resuscitation. Further it would be my understanding that if and when patient develops another bout of sepsis and respiratory failure require higher amounts of oxygen and pressor support the family will probably elect to change to a comfort measure status. There are no pain and symptom management issues psychological psychological social spiritual or existential issues that needed to be addressed at that time patient CODE STATUS has been changed to DO NOT RESUSCITATE. Will continue to follow and support patient and family members Consultation Date/Type/Reason Admit Date/Time Oct 09, 2018 at 12:16 Initial Consult Date 10/12/18 Requesting Provider: NOLA VIDAL MD Date/Time of Note DATE: 11/08/18 TIME: 12:22 Exam/Review of Systems Exam Vitals Vital Signs Date Temp Pulse Resp B/P (MAP) Pulse Ox O2 O2 Flow FiO2 Time Delivery Rate 11/08/18 97 24 95 70 11:05 11/08/18 102/70 Mechanical 10:00 (81) Ventilator 11/08/18 98.4 08:00 Intake and Output 11/07/18 11/07/18 11/08/18 1515:00 23:00 07:00 IntakeIntake Total 780 ml 340 ml OutputOutput Total 40 ml 460 ml 275 ml BalanceBalance -40 ml 320 ml 65 ml Constitutional: alert, oriented, frail Neurological: CORPORATE LIBRARIAN II-XII intact, nl mental status, lethargic Results Result Diagram: 11/07/18 0500 11/07/18 0500 Results 24hrs Laboratory Tests Test 11/07/18 15:12 11/07/18 18:46 11/07/18 20:11 11/08/18 02:09 Bedside Glucose 116 129 130 151 Test 11/08/18 05:30 11/08/18 07:57 Stool Occult Blood POSITIVE Bedside Glucose 102 Medications Medication Current Medications Acetaminophen (Tylenol Liquid) 650 mg Q4H PRN GTB MILD PAIN(1-3)OR ELEVATED TEMP Last administered on 11/05/18 23:55; Admin Dose 650 MG; Start 10/09/18 at 14:00 Al Hydrox/Mg Hydrox/Simethicone (Mag-Al Plus) 15 ml Q6H PRN PO GASTROINTESTINAL UPSET Last administered on 10/17/18 13:18; Admin Dose 15 ML; Start 10/09/18 at 14:00 Eye Lubricant (Artificial Tears Oph) 1 drop Q6H PRN BOTH EYES DRY EYES Last a dministered on 11/03/18 09:33; Admin Dose 1 DROP; Start 10/09/18 at 14:00 Bisacodyl (Dulcolax Supp) 10 mg DAILY PRN [place] CONSTIPATION; Start 10/09/18 at 14:00 Clonidine (Catapres) 0.1 mg DAILY PRN GTB ELEVATED BLOOD PRESSURE; Start 10/09/18 at 14:00 Diltiazem HCl (Cardizem Iv) 5 mg Q4 PRN IV ELEVATED HEART RATE Last administered on 11/06/18 18:47; Admin Dose 5 MG; Start 10/09/18 at 14:00 Diphenhydramine HCl (Benadryl Liquid Cup) 25 mg Q6 PRN GTB ITCHING Last administered on 10/22/18 20:25; Admin Dose 25 MG; Start 10/09/18 at 14:00 Duloxetine HCl (Cymbalta) 30 mg DAILY PO Last administered on 11/08/18 08:19; Admin Dose 30 MG; Start 10/10/18 at 09:00 Gabapentin (Neurontin Liquid) 400 mg Q8 GTB Last administered on 11/08/18 06:32; Admin Dose 400 MG; Start 10/09/18 at 15:30 Hydralazine HCl (Apresoline) 10 mg Q4H PRN IV ELEVATED BLOOD PRESSURE; Start 10/09/18 at 14:00 Hydroxychloroquine Sulfate (Plaquenil) 200 mg BID PO Last administered on 11/08/18 08:19; Admin Dose 200 MG; Start 10/09/18 at 21:00 Diagnostic Test (Pha) (Accu-Chek) 1 ea 02 XX Last administered on 11/04/18 02: 27; Admin Dose 1 EA; Start 10/10/18 at 02:00 Insulin Aspart (Novolog Insulin Pen) NOVOLOG *CUSTOM* ALGORITHM Q6H SC Last administered on 11/08/18 02:22; Admin Dose 1 UNIT; Start 10/09/18 at 14:00 Lactobacillus Acidophilus (Florajen3 Capsule) 1 each BID GTB Last administered on 11/08/18 08:18; Admin Dose 1 EACH; Start 10/09/18 at 21:00 Lansoprazole (Prevacid) 30 mg BID@,18 GTB Last administered on 11/08/18 05:49; Admin Dose 30 MG; Start 10/09/18 at 18:00 Levetiracetam (Keppra Liquid) 500 mg BID GTB Last administered on 11/08/18 08:18; Admin Dose 500 MG; Start 10/09/18 at 21:00 Magnesium Oxide (Mag-Ox 400) 400 mg BID GTB Last administered on 11/08/18 08:19; Admin Dose 400 MG; Start 10/09/18 at 21:00 Metoclopramide HCl (Reglan) 10 mg TID IV Last administered on 11/08/18 08:19; Admin Dose 10 MG; Start 10/09/18 at 21:00 Miconazole Nitrate (Miconazole 2% Cr) 1 applic BID TOP Last administered on 11/08/18 09:44; Admin Dose 1 APPLIC; Start 10/09/18 at 21:00 Miconazole Nitrate (Miconazole 2% Cr) 1 applic Q12 PRN TOP rash; Start 10/09/18 at 14:00 Ondansetron HCl (Zofran Inj) 4 mg Q4H PRN IV NAUSEA AND/OR VOMITING Last administered on 10/19/18 16:37; Admin Dose 4 MG; Start 10/09/18 at 14:00 Polyethylene Glycol (Miralax) 17 gm DAILY PRN GTB CONSTIPATION; Start 10/09/18 at 14:00 Senna (Senokot) 2 tab Q8 PRN PO CONSTIPATION; Start 10/09/18 at 14:00 Trimethoprim/ Sulfamethoxazole (Bactrim Susp) 40 ml DAILY GTB Last administered on 11/08/18 09:43; Admin Dose 40 ML; Start 10/10/18 at 09:00 Zolpidem Tartrate (Ambien) 5 mg HS PRN PO INSOMNIA Last administered on 11/03/18 at 01:16; Admin Dose 5 MG; Start 10/09/18 at 14:00 Miscellaneous Information 1 ea NOTE XX ; Start 10/09/18 at 15:00 Glucose (Glutose) 15 gm Q15M PRN PO DECREASED GLUCOSE; Start 10/09/18 at 15:00 Glucose (Glutose) 22.5 gm Q15M PRN PO DECREASED GLUCOSE; Start 10/09/18 at 15:00 Dextrose (D50w Syringe) 25 ml Q15M PRN IV DECREASED GLUCOSE; Start 10/09/18 at 15:00 Dextrose (D50w Syringe) 50 ml Q15M PRN IV DECREASED GLUCOSE; Start 10/09/18 at 15:00 Glucagon (Glucagen) 1 mg Q15M PRN IM DECREASED GLUCOSE; Start 10/09/18 at 15:00 Glucose (Glutose) 15 gm Q15M PRN BUCCAL DECREASED GLUCOSE; Start 10/09/18 at 15:00 Sodium Chloride 500 ml @ 500 mls/hr Q1H PRN IV BLOOD PRESSURE SUPPORT Last administered on 10/31/18at 03:35; Admin Dose 500 MLS/HR; Start 10/09/18 at 19:30 Albuterol (Ventolin Hfa) 4 puff Q6H RESP THERAPY INH Last administered on 11/08/18 07:33; Admin Dose 4 PUFF; Start 10/10/18 at 02:00 Ipratropium [place] (Atrovent Hfa) 4 puff Q6H RESP THERAPY INH Last administered on 11/08/18 07:33; Admin Dose 4 PUFF; Start 10/10/18 at 02:00 Lorazepam (Ativan) 1 mg Q4H PRN GTB AGITATION/ANXIETY Last administered on 11/05/18 20:35; Admin Dose 1 MG; Start 10/14/18 at 13:00 Linagliptin (Tradjenta) 5 mg DAILY PO Last administered on 11/08/18 08:18; Admin Dose 5 MG; Start 10/16/18 at 10:30 Fentanyl (Duragesic 50 Mcg/Hr Patch) 1 patch Q72H TRANSDERM Last administered on 11/07/18at 20:47; Admin Dose 1 PATCH; Start 10/17/18 at 20:30 Lorazepam (Ativan) 2 mg Q6H GTB Last administered on 11/08/18 08:18; Admin Dose 2 MG; Start 10/20/18 at 15:00 Quetiapine Fumarate (Seroquel) 100 mg BID GTB Last administered on 11/08/18 08:18; Admin Dose 100 MG; Start 10/21/18 at 21:00 Hydromorphone HCl (Dilaudid) 6 mg Q4H PRN PO MODERATE PAIN LEVEL 7-10 Last administered on 11/08/18 09:43; Admin Dose 6 MG; Start 10/21/18 at 22:00 Calcium Carbonate (Ca Carbonate) 1,250 mg QID GTB Last administered on 11/08/18 08:17; Admin Dose 1,250 MG; Start 10/24/18 at 13:00 Metoprolol Tartrate (Lopressor) 5 mg Q4H PRN IV HR>110 Hold SBP<100 Last administered on 11/06/18 16:17; Admin Dose 5 MG; Start 10/28/18 at 12:30 Carvedilol (Coreg) 3.125 mg BID PO Last administered on 11/08/18 08:19; Admin Dose 3.125 MG; Start 11/01/18 at 21:00 Phenylephrine HCl 40 mg/Dextrose 250 ml @ 37.5 mls/hr TITRATE IV Last administered on 11/02/18 09:05; Admin Dose 11.25 MLS/HR; Start 11/01/18 at 13:30 IV Flush (NS 10 ml) 10 ml PRN PRN IV IV PROTOCOL; Start 11/01/18 at 16:30 Collagenase (Santyl) 1 applic DAILY TOP Last administered on 11/08/18 08:19; Admin Dose 1 APPLIC; Start 11/01/18 at 19:30 Norepinephrine 32 mg/Dextrose 250 ml @ 0.47 mls/hr TITRATE IV Last administered on 11/02/18 12:15; Admin Dose 0.47 MLS/HR; Start 11/02/18 at 11:30 Midodrine (Proamatine) 5 mg TID@,13,17 GTB Last administered on 11/07/18 08:53; Admin Dose 5 MG; Start 11/03/18 at 09:00 Guaifenesin (Robitussin Liquid Cup) 100 mg Q4H PRN PO COUGH Last administered on 11/05/18 20:31; Admin Dose 100 MG; Start 11/03/18 at 12:00 Hydrocortisone (Cortef) 20 mg QAM PEG Last administered on 11/08/18 08:18; Admin Dose 20 MG; Start 11/04/18 at 09:00 Hydrocortisone (Cortef) 20 mg AC DINNER PEG Last administered on 11/07/18at 1 8:38; Admin Dose 20 MG; Start 11/04/18 at 17:05 Hydrocortisone (Cortef) 20 mg HS PEG Last administered on 11/07/18at 20:12; Admin Dose 20 MG; Start 11/03/18 at 22:45 Calcitriol (Rocaltrol) 1.5 mcg BID PO Last administered on 11/08/18 08:18; Admin Dose 1.5 MCG; Start 11/07/18 at 21:00 RENATO GAMBOA Nov 08, 2018 12:23
--- NOTE | 2018-11-08 12:27 | PN ---
Date/Time of Note Date/Time of Note DATE: 11/08/18 TIME: 12:24 Assessment/Plan VTE Prophylaxis Risk score (from Ns)>0 risk: 9 SCD applied (from [facility] [place]): Yes Pharmacological prophylaxis: NA/contraindicated Pharm contraindication: other Lines/Catheters IV Catheter Type (from [facility]): PICC Line Central line still needed: Yes Urinary Cath still in place: No Assessment/Plan Hospital Course Patient remains hemodynamically stable afebrile, anxiety is well controlled on current medication, patient continues on ventilator support with 70% FiO2 and PEEP of 8. Assessment/Plan - Acute on chronic hypoxemic respiratory failure with underlying ARDS, continue ventilatory support. Dr. Villa is following in pulmonology consultation. - Acute kidney injury, resolved, continue to monitor BUN and creatinine. Dr. Hobson is following in nephrology consultation. -Tachycardia, Dr. Joshi is following in cardiology consultation. - Cardiomyopathy with EF 35-40% - Rheumatoid arthritis with steroid dependence. - Dysphagia. Continue GT feeding. - Anemia of chronic disease. - Hypoparathyroidism - Hypertension. - Functional quadriplegia - Hx of severe cervical spinal cord stenosis with cord compression from C3-C5, s/p laminectomy. - History of fibromyalgia rheumatica - Hx of VAT on 08/11/2018 - Poor prognosis, Dr. Zurita is following in palliative care consultation. - DNR status Critical care time spent 30 minutes. Further recommendations based on clinical course. Plan of care discussed with Dr. Rosales Result Diagram: 11/07/18 0500 11/07/18 0500 Results 24hrs Laboratory Tests Test 11/07/18 15:12 11/07/18 18:46 11/07/18 20:11 11/08/18 02:09 Bedside Glucose 116 129 130 151 Test 11/08/18 05:30 11/08/18 07:57 Stool Occult Blood POSITIVE Bedside Glucose 102 Exam/Review of Systems Exam Vitals Vital Signs Date Temp Pulse Resp B/P (MAP) Pulse Ox O2 O2 Flow FiO2 Time Delivery Rate 11/08/18 97 24 95 70 11:05 11/08/18 102/70 Mechanical 10:00 (81) Ventilator 11/08/18 98.4 08:00 Intake and Output 11/07/18 11/07/18 11/08/18 1515:00 23:00 07:00 IntakeIntake Total 780 ml 340 ml OutputOutput Total 40 ml 460 ml 275 ml BalanceBalance -40 ml 320 ml 65 ml Exam Constitutional: alert, oriented, frail Neck: other (trach) Respiratory: diminished breath sounds Cardiovascular: regular rate and rhythm Gastrointestinal: soft, non-tender, other Neurological: nl mental status Results Results 24hrs Laboratory Tests Test 11/07/18 15:12 11/07/18 18:46 11/07/18 20:11 11/08/18 02:09 Bedside Glucose 116 129 130 151 Test 11/08/18 05:30 11/08/18 07:57 Stool Occult Blood POSITIVE Bedside Glucose 102 Medications Medication Current Medications Acetaminophen (Tylenol Liquid) 650 mg Q4H PRN GTB MILD PAIN(1-3)OR ELEVATED TEMP Last administered on 11/05/18 23:55; Admin Dose 650 MG; Start 10/09/18 at 14:00 Al Hydrox/Mg Hydrox/Simethicone (Mag-Al Plus) 15 ml Q6H PRN PO GASTROINTESTINAL UPSET Last administered on 10/17/18 13:18; Admin Dose 15 ML; Start 10/09/18 at 14:00 Eye Lubricant (Artificial Tears Oph) 1 drop Q6H PRN BOTH EYES DRY EYES Last administered on 11/03/18 09:33; Admin Dose 1 DROP; Start 10/09/18 at 14:00 Bisacodyl (Dulcolax Supp) 10 mg DAILY PRN IN CONSTIPATION; Start 10/09/18 at 14:00 Clonidine (Catapres) 0.1 mg DAILY PRN GTB ELEVATED BLOOD PRESSURE; Start 10/09/18 at 14:00 Diltiazem HCl (Cardizem Iv) 5 mg Q4 PRN IV ELEVATED HEART RATE Last administered on 11/06/18 18:47; Admin Dose 5 MG; Start 10/09/18 at 14:00 Diphenhydramine HCl (Benadryl Liquid Cup) 25 mg Q6 PRN GTB ITCHING Last administered on 10/22/18 20:25; Admin Dose 25 MG; Start 10/09/18 at 14:00 Duloxetine HCl (Cymbalta) 30 mg DAILY PO Last administered on 11/08/18 08:19; Admin Dose 30 MG; Start 10/10/18 at 09:00 Gabapentin (Neurontin Liquid) 400 mg Q8 GTB Last administered on 11/08/18 06:32; Admin Dose 400 MG; Start 10/09/18 at 15:30 Hydralazine HCl (Apresoline) 10 mg Q4H PRN IV ELEVATED BLOOD PRESSURE; Start 10/09/18 at 14:00 Hydroxychloroquine Sulfate (Plaquenil) 200 mg BID PO Last administered on 11/08/18 08:19; Admin Dose 200 MG; Start 10/09/18 at 21:00 Diagnostic Test (Pha) (Accu-Chek) 1 ea 02 XX Last administered on 11/04/18 02:27; Admin Dose 1 EA; Start 10/10/18 at 02:00 Insulin Aspart (Novolog Insulin Pen) NOVOLOG *CUSTOM* ALGORITHM Q6H SC Last administered on 11/08/18 02:22; Admin Dose 1 UNIT; Start 10/09/18 at 14:00 Lactobacillus Acidophilus (Florajen3 Capsule) 1 each BID GTB Last administered on 11/08/18 08:18; Admin Dose 1 EACH; Start 10/09/18 at 21:00 Lansoprazole (Prevacid) 30 mg BID@06,18 GTB Last administered on 11/08/18at 0 5:49; Admin Dose 30 MG; Start 10/09/18 at 18:00 Levetiracetam (Keppra Liquid) 500 mg BID GTB Last administered on 11/08/18 08:18; Admin Dose 500 MG; Start 10/09/18 at 21:00 Magnesium Oxide (Mag-Ox 400) 400 mg BID GTB Last administered on 11/08/18 08:19; Admin Dose 400 MG; Start 10/09/18 at 21:00 Metoclopramide HCl (Reglan) 10 mg TID IV Last administered on 11/08/18 08:19; Admin Dose 10 MG; Start 10/09/18 at 21:00 Miconazole Nitrate (Miconazole 2% Cr) 1 applic BID TOP Last administered on 11/08/18 09:44; Admin Dose 1 APPLIC; Start 10/09/18 at 21:00 Miconazole Nitrate (Miconazole 2% Cr) 1 applic Q12 PRN TOP rash; Start 10/09/18 at 14:00 Ondansetron HCl (Zofran Inj) 4 mg Q4H PRN IV NAUSEA AND/OR VOMITING Last administered on 10/19/18at 16:37; Admin Dose 4 MG; Start 10/09/18 at 14:00 Polyethylene Glycol (Miralax) 17 gm DAILY PRN GTB CONSTIPATION; Start 10/09/18 at 14:00 Senna (Senokot) 2 tab Q8 PRN PO CONSTIPATION; Start 10/09/18 at 14:00 Trimethoprim/ Sulfamethoxazole (Bactrim Susp) 40 ml DAILY GTB Last administered on 11/08/18at 09:43; Admin Dose 40 ML; Start 10/10/18 at 09:00 Zolpidem Tartrate (Ambien) 5 mg HS PRN PO INSOMNIA Last administered on 11/03/18at 01:16; Admin Dose 5 MG; Start 10/09/18 at 14:00 Miscellaneous Information 1 ea NOTE XX ; Start 10/09/18 at 15:00 Glucose (Glutose) 15 gm Q15M PRN PO DECREASED GLUCOSE; Start 10/09/18 at 15:00 Glucose (Glutose) 22.5 gm Q15M PRN PO DECREASED GLUCOSE; Start 10/09/18 at 15:00 Dextrose (D50w Syringe) 25 ml Q15M PRN IV DECREASED GLUCOSE; Start 10/09/18 at 15:00 Dextrose (D50w Syringe) 50 ml Q15M PRN IV DECREASED GLUCOSE; Start 10/09/18 at 15:00 Glucagon (Glucagen) 1 mg Q15M PRN IM DECREASED GLUCOSE; Start 10/09/18 at 15:00 Glucose (Glutose) 15 gm Q15M PRN BUCCAL DECREASED GLUCOSE; Start 10/09/18 at 15:00 Sodium Chloride 500 ml @ 500 mls/hr Q1H PRN IV BLOOD PRESSURE SUPPORT Last administered on 10/31/18at 03:35; Admin Dose 500 MLS/HR; Start 10/09/18 at 19:30 Albuterol (Ventolin Hfa) 4 puff Q6H RESP THERAPY INH Last administered on 11/08/18 07:33; Admin Dose 4 PUFF; Start 10/10/18 at 02:00 Ipratropium [place] (Atrovent Hfa) 4 puff Q6H RESP THERAPY INH Last administered on 11/08/18at 07:33; Admin Dose 4 PUFF; Start 10/10/18 at 02:00 Lorazepam (Ativan) 1 mg Q4H PRN GTB AGITATION/ANXIETY Last administered on 11/05/18 20:35; Admin Dose 1 MG; Start 10/14/18 at 13:00 Linagliptin (Tradjenta) 5 mg DAILY PO Last administered on 11/08/18 08:18; Admin Dose 5 MG; Start 10/16/18 at 10:30 Fentanyl (Duragesic 50 Mcg/Hr Patch) 1 patch Q72H TRANSDERM Last administered on 11/07/18 20:47; Admin Dose 1 PATCH; Start 10/17/18 at 20:30 Lorazepam (Ativan) 2 mg Q6H GTB Last administered on 11/08/18 08:18; Admin Dose 2 MG; Start 10/20/18 at 15:00 Quetiapine Fumarate (Seroquel) 100 mg BID GTB Last administered on 11/08/18 08:18; Admin Dose 100 MG; Start 10/21/18 at 21:00 Hydromorphone HCl (Dilaudid) 6 mg Q4H PRN PO MODERATE PAIN LEVEL 7-10 Last administered on 11/08/18 09:43; Admin Dose 6 MG; Start 10/21/18 at 22:00 Calcium Carbonate (Ca Carbonate) 1,250 mg QID GTB Last administered on 11/08/18 08:17; Admin Dose 1,250 MG; Start 10/24/18 at 13:00 Metoprolol Tartrate (Lopressor) 5 mg Q4H PRN IV HR>110 Hold SBP<100 Last administered on 11/06/18 16:17; Admin Dose 5 MG; Start 10/28/18 at 12:30 Carvedilol (Coreg) 3.125 mg BID PO Last administered on 11/08/18 08:19; Admin Dose 3.125 MG; Start 11/01/18 at 21:00 Phenylephrine HCl 40 mg/Dextrose 250 ml @ 37.5 mls/hr TITRATE IV Last administered on 11/02/18 09:05; Admin Dose 11.25 MLS/HR; Start 11/01/18 at 13:30 IV Flush (NS 10 ml) 10 ml PRN PRN IV IV PROTOCOL; Start 11/01/18 at 16:30 Collagenase (Santyl) 1 applic DAILY TOP Last administered on 11/08/18 08:19; Admin Dose 1 APPLIC; Start 11/01/18 at 19:30 Norepinephrine 32 mg/Dextrose 250 ml @ 0.47 mls/hr TITRATE IV Last administered on 11/02/18 12:15; Admin Dose 0.47 MLS/HR; Start 11/02/18 at 11:30 Midodrine (Proamatine) 5 mg TID@09,13,17 GTB Last administered on 11/07/18 08:53; Admin Dose 5 MG; Start 11/03/18 at 09:00 Guaifenesin (Robitussin Liquid Cup) 100 mg Q4H PRN PO COUGH Last administered on 11/05/18 20:31; Admin Dose 100 MG; Start 11/03/18 at 12:00 Hydrocortisone (Cortef) 20 mg QAM PEG Last administered on 11/08/18 08:18; Admin Dose 20 MG; Start 11/04/18 at 09:00 Hydrocortisone (Cortef) 20 mg AC DINNER PEG Last administered on 11/07/18 18:38; Admin Dose 20 MG; Start 11/04/18 at 17:05 Hydrocortisone (Cortef) 20 mg HS PEG Last administered on 11/07/18 20:12; Admin Dose 20 MG; Start 11/03/18 at 22:45 Calcitriol (Rocaltrol) 1.5 mcg BID PO Last administered on 11/08/18 08:18; Admin Dose 1.5 MCG; Start 11/07/18 at 21:00 CAROLYN LANGLEY Nov 08, 2018 12:27
--- NOTE | 2018-11-08 13:30 | CONS ---
Consult Date/Type/Reason Admit Date/Time Oct 09, 2018 at 12:16 Initial Consult Date 10/09/18 Type of Consultation: Pulm/CCM Requesting Provider: NOLA VIDAL MD Date/Time of Note DATE: 11/08/18 TIME: 13:29 Subjective NO acute events - chronic sinus tach. ROS: No fever, no chills, no nausea, no vomiting, no diarrhea/constipation No recent weight changes No chest pain, no PND, no orthopnea + SOB , + anxiety No dizziness, blurred vision No thirst, no heat or cold intolerance Objective Vitals Vital Signs Date Temp Pulse Resp B/P (MAP) Pulse Ox O2 O2 Flow FiO2 Time Delivery Rate 11/08/18 100 16 114/71 95 Mechanical 13:00 (85) Ventilator 11/08/18 98.0 12:00 11/08/18 70 11:05 Intake and Output 11/07/18 11/07/18 11/08/18 1414:59 22:59 06:59 IntakeIntake Total 780 ml 340 ml OutputOutput Total 40 ml 460 ml 275 ml BalanceBalance -40 ml 320 ml 65 ml Exam General: WN/WD/NAD, AOx comfortable HEENT: Unicetric/atraumatic/EOMI ( follow commands) NECK: trach Lymph: no lymphadenopathy HEART: regular with no S3, II/ systolic murmur at apex LUNGS: Coarse sounds ABD: soft, NT, ND, +BS : Intact Neuro: non focal SKIN: chronic changes, wounds EXT: trace edema Results/Medications Result Diagram: 11/07/18 0500 11/07/18 0500 Results 24 hrs Laboratory Tests Test 11/07/18 15:12 11/07/18 18:46 11/07/18 20:11 11/08/18 02:09 Bedside Glucose 116 129 130 151 Test 11/08/18 05:30 11/08/18 07:57 Stool Occult Blood POSITIVE Bedside Glucose 102 Medications Current Medications Acetaminophen (Tylenol Liquid) 650 mg Q4H PRN GTB MILD PAIN(1-3)OR ELEVATED TEMP Last administered on 11/05/18at 23:55; Admin Dose 650 MG; Start 10/09/18 at 14:00 Al Hydrox/Mg Hydrox/Simethicone (Mag-Al Plus) 15 ml Q6H PRN PO GASTROINTESTINAL UPSET Last administered on 10/17/18 13:18; Admin Dose 15 ML; Start 10/09/18 at 14:00 Eye Lubricant (Artificial Tears Oph) 1 drop Q6H PRN BOTH EYES DRY EYES Last administered on 11/03/18 09:33; Admin Dose 1 DROP; Start 10/09/18 at 14:00 Bisacodyl (Dulcolax Supp) 10 mg DAILY PRN [place] CONSTIPATION; Start 10/09/18 at 14:00 Clonidine (Catapres) 0.1 mg DAILY PRN GTB ELEVATED BLOOD PRESSURE; Start 10/09/18 at 14:00 Diltiazem HCl (Cardizem Iv) 5 mg Q4 PRN IV ELEVATED HEART RATE Last administered on 11/06/18 18:47; Admin Dose 5 MG; Start 10/09/18 at 14:00 Diphenhydramine HCl (Benadryl Liquid Cup) 25 mg Q6 PRN GTB ITCHING Last administered on 10/22/18 20:25; Admin Dose 25 MG; Start 10/09/18 at 14:00 Duloxetine HCl (Cymbalta) 30 mg DAILY PO Last administered on 11/08/18 08:19; Admin Dose 30 MG; Start 10/10/18 at 09:00 Gabapentin (Neurontin Liquid) 400 mg Q8 GTB Last administered on 11/08/18 13:14; Admin Dose 400 MG; Start 10/09/18 at 15:30 Hydralazine HCl (Apresoline) 10 mg Q4H PRN IV ELEVATED BLOOD PRESSURE; Start 10/09/18 at 14:00 Hydroxychloroquine Sulfate (Plaquenil) 200 mg BID PO Last administered on 11/08/18 08:19; Admin Dose 200 MG; Start 10/09/18 at 21:00 Diagnostic Test (Pha) (Accu-Chek) 1 ea 02 XX Last administered on 11/04/18 02:27; Admin Dose 1 EA; Start 10/10/18 at 02:00 Insulin Aspart (Novolog Insulin Pen) NOVOLOG *CUSTOM* ALGORITHM Q6H SC Last administered on 11/08/18 02:22; Admin Dose 1 UNIT; Start 10/09/18 at 14:00 Lactobacillus Acidophilus (Florajen3 Capsule) 1 each BID GTB Last administered on 11/08/18 08:18; Admin Dose 1 EACH; Start 10/09/18 at 21:00 Lansoprazole (Prevacid) 30 mg BID@,18 GTB Last administered on 11/08/18 05:49; Admin Dose 30 MG; Start 10/09/18 at 18:00 Levetiracetam (Keppra Liquid) 500 mg BID GTB Last administered on 11/08/18 08:18; Admin Dose 500 MG; Start 10/09/18 at 21:00 Magnesium Oxide (Mag-Ox 400) 400 mg BID GTB Last administered on 11/08/18 08:19; Admin Dose 400 MG; Start 10/09/18 at 21:00 Metoclopramide HCl (Reglan) 10 mg TID IV Last administered on 11/08/18 12:53; Admin Dose 10 MG; Start 10/09/18 at 21:00 Miconazole Nitrate (Miconazole 2% Cr) 1 applic BID TOP Last administered on 11/08/18 09:44; Admin Dose 1 APPLIC; Start 10/09/18 at 21:00 Miconazole Nitrate (Miconazole 2% Cr) 1 applic Q12 PRN TOP rash; Start 10/09/18 at 14:00 Ondansetron HCl (Zofran Inj) 4 mg Q4H PRN IV NAUSEA AND/OR VOMITING Last administered on 10/19/18 16:37; Admin Dose 4 MG; Start 10/09/18 at 14:00 Polyethylene Glycol (Miralax) 17 gm DAILY PRN GTB CONSTIPATION; Start 10/09/18 at 14:00 Senna (Senokot) 2 tab Q8 PRN PO CONSTIPATION; Start 10/09/18 at 14:00 Trimethoprim/ Sulfamethoxazole (Bactrim Susp) 40 ml DAILY GTB Last administered on 11/08/18 09:43; Admin Dose 40 ML; Start 10/10/18 at 09:00 Zolpidem Tartrate (Ambien) 5 mg HS PRN PO INSOMNIA Last administered on 11/03/18 01:16; Admin Dose 5 MG; Start 10/09/18 at 14:00 Miscellaneous Information 1 ea NOTE XX ; Start 10/09/18 at 15:00 Glucose (Glutose) 15 gm Q15M PRN PO DECREASED GLUCOSE; Start 10/09/18 at 15:00 Glucose (Glutose) 22.5 gm Q15M PRN PO DECREASED GLUCOSE; Start 10/09/18 at 15:00 Dextrose (D50w Syringe) 25 ml Q15M PRN IV DECREASED GLUCOSE; Start 10/09/18 at 15:00 Dextrose (D50w Syringe) 50 ml Q15M PRN IV DECREASED GLUCOSE; Start 10/09/18 at 15:00 Glucagon (Glucagen) 1 mg Q15M PRN IM DECREASED GLUCOSE; Start 10/09/18 at 15:00 Glucose (Glutose) 15 gm Q15M PRN BUCCAL DECREASED GLUCOSE; Start 10/09/18 at 15:00 Sodium Chloride 500 ml @ 500 mls/hr Q1H PRN IV BLOOD PRESSURE SUPPORT Last administered on 10/31/18 03:35; Admin Dose 500 MLS/HR; Start 10/09/18 at 19:30 Albuterol (Ventolin Hfa) 4 puff Q6H RESP THERAPY INH Last administered on 11/08/18 13:13; Admin Dose 4 PUFF; Start 10/10/18 at 02:00 Ipratropium [place] (Atrovent Hfa) 4 puff Q6H RESP THERAPY INH Last administered on 11/08/18 13:13; Admin Dose 4 PUFF; Start 10/10/18 at 02:00 Lorazepam (Ativan) 1 mg Q4H PRN GTB AGITATION/ANXIETY Last administered on 11/05/18 20:35; Admin Dose 1 MG; Start 10/14/18 at 13:00 Linagliptin (Tradjenta) 5 mg DAILY PO Last administered on 11/08/18 08:18; Admin Dose 5 MG; Start 10/16/18 at 10:30 Fentanyl (Duragesic 50 Mcg/Hr Patch) 1 patch Q72H TRANSDERM Last administered on 11/07/18at 20:47; Admin Dose 1 PATCH; Start 10/17/18 at 20:30 Lorazepam (Ativan) 2 mg Q6H GTB Last administered on 11/08/18 08:18; Admin Dose 2 MG; Start 10/20/18 at 15:00 Quetiapine Fumarate (Seroquel) 100 mg BID GTB Last administered on 11/08/18 08:18; Admin Dose 100 MG; Start 10/21/18 at 21:00 Hydromorphone HCl (Dilaudid) 6 mg Q4H PRN PO MODERATE PAIN LEVEL 7-10 Last administered on 11/08/18 09:43; Admin Dose 6 MG; Start 10/21/18 at 22:00 Calcium Carbonate (Ca Carbonate) 1,250 mg QID GTB Last administered on 11/08/18 12:52; Admin Dose 1,250 MG; Start 10/24/18 at 13:00 Metoprolol Tartrate (Lopressor) 5 mg Q4H PRN IV HR>110 Hold SBP<100 Last administered on 11/06/18 16:17; Admin Dose 5 MG; Start 10/28/18 at 12:30 Carvedilol (Coreg) 3.125 mg BID PO Last administered on 11/08/18 08:19; Admin Dose 3.125 MG; Start 11/01/18 at 21:00 Phenylephrine HCl 40 mg/Dextrose 250 ml @ 37.5 mls/hr TITRATE IV Last administered on 11/02/18 09:05; Admin Dose 11.25 MLS/HR; Start 11/01/18 at 13:30 IV Flush (NS 10 ml) 10 ml PRN PRN IV IV PROTOCOL; Start 11/01/18 at 16:30 Collagenase (Santyl) 1 applic DAILY TOP Last administered on 11/08/18 08:19; Admin Dose 1 APPLIC; Start 11/01/18 at 19:30 Norepinephrine 32 mg/Dextrose 250 ml @ 0.47 mls/hr TITRATE IV Last administered on 11/02/18 12:15; Admin Dose 0.47 MLS/HR; Start 11/02/18 at 11:30 Midodrine (Proamatine) 5 mg TID@,,17 GTB Last administered on 11/08/18 12:53; Admin Dose 5 MG; Start 11/03/18 at 09:00 Guaifenesin (Robitussin Liquid Cup) 100 mg Q4H PRN PO COUGH Last administered on 11/05/18 20:31; Admin Dose 100 MG; Start 11/03/18 at 12:00 Hydrocortisone (Cortef) 20 mg QAM PEG Last administered on 11/08/18 08:18; Admin Dose 20 MG; Start 11/04/18 at 09:00 Hydrocortisone (Cortef) 20 mg AC DINNER PEG Last administered on 11/07/18at 18:38; Admin Dose 20 MG; Start 11/04/18 at 17:05 Hydrocortisone (Cortef) 20 mg HS PEG Last administered on 11/07/18at 20:12; Admin Dose 20 MG; Start 11/03/18 at 22:45 Calcitriol (Rocaltrol) 1.5 mcg BID PO Last administered on 11/08/18at 08:18; Admin Dose 1.5 MCG; Start 11/07/18 at 21:00 Assessment/Plan Hospital Course (Demo Recall) 1. Tachycardia at this time in the setting of fevers and respiratory distress, most consistent with sinus tachycardia likely driving this process - better now, con't supportive Rx and pain management- con't anxiety Rx. Con;t supportive RX. Rate controlled at rest. Keep euvolemic as tolerated. LAbile rate - con;t supportive rX . Overall unchanged. 2. Hypertension with borderline hypotension at this time. -still borderline Hotn - no focal symptoms. Will monitor now. In good range. STABLE. 3. Abnormal electrocardiogram at baseline.Sinus tach. OK to hydrate. 4. Chronic respiratory failure, status post tracheostomy.-weaning vent support - con't resp Rx. Con;t resp Rx. Pulmonary follows. 5. Dysphagia, status post G-tube. 6. Quadriplegia- skin care in place. NO change. Skin care. 7. Renal insufficiency, on steroids- Cr 0.28 now. Stable. Good urine output now. Good urine output. Resolved. 8. Chronic obstructive pulmonary disease - con't resp Rx per pulmonary team. On vent. 9. Rheumatoid arthritis. 10. Chronic kidney disease- better now. 11. Diabetes mellitus- on meds. 12. Anemia - of chronic Dz, ar 9.9 now H/H - no bleeding. VANESSA COOPER MD Nov 08, 2018 13:30
--- NOTE | 2018-11-08 15:54 | CONS ---
Assessment/Plan Assessment/Plan Hospital Course (Demo Recall) # sepsis, respiratory - recurrent sepsis on 10/08/2018 due to aspiration pneumonia, HCAP, improved - possible aspiration pneumonia, recurrent pneumonia due to citrobacter, improved - acute on chronic hypoxic and hypercarbic respiratory failure - persistent leukocytosis likely due to steroid margination - h/o tracheostomy on 08/26/2018 - h/o "Increased mild left apical pneumothorax" per CXR on 09/19/2018; no pneumothorax mentioned on subsequent CXR - h/o pneumomediastinum - h/o VAT on 08/11/2018 - h/o asthma/COPD exacerbation - h/o acute tracheobronchitis - h/o MAC infection but CT chest did not demonstrate features suggestive of this per chart review - h/o HCAP due to citrobacter, based on resp culture on 09/13/2018 - h/o aspergillus in resp culture according to a note by Dr. Lopez, a pulmonlogist at [facility] on 07/25/2018 - h/o elevated 1,3 [id number] level = 232 on 08/06/2018 - h/o MSSA septicemia # GI - diarrhea, C diff on 10/09/2018 was negative. 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 x 21 days from 08/26/2018 - h/o EGD, esophageal biopsy showed esophageal squamous mucosa showing acute inflammation, granulation tissue, and ulceration consistent with ulcerative esophagitis, rare multinucleated cells with morphology suggestive of vial cytopathic changes, No cardiac mucosa, intestinal metaplasia, dysplasia, or malignancy defined - GERD - PUD # renal/ - Hypokalemia, recurrent - CKD 2 - BPH # cardiac - tachycardia, persistent - ACD - HTN # endo - T2DM - Hgb A1c 7.2% - secondary adrenal insufficiency; steroid dependent - HLD - Hypoparathyroidism - Hypercalcemia - Pamidronate was ordered # neuro - toxic metabolic encephalopathy - Cervical myopathy - Severe cervical spinal cord stenosis with cord compression from C3-C5, s/p laminectomy in ~03/2018 - Chronic pain syndrome - Functional quadriplegia - Seizure d/o # other chronic conditions - RA with chronic steroid dependence - Immunocompromised status - Fibromyalgia - DDD - H/o multiple rib fracture - Pt completed: meropenem (09/25/2018-10/02/2018), vancomycin (09/25/18-09/28/18), pip/tazo (10/09/2018-10/15/2018) - so far: pneumocystis antigen negative, AFB smear negative and final culture x3 pending, quantiferon TB gold negative, coccidioides serology negative recommendations - continue Bactrim for pneumocystis PPX - continue to monitor Pt off other systemic antibiotic management d/w Pt's ARIANNA Brgigs the critical care time I took to care for this Pt today was from 1500 to 1530 Consultation Date/Type/Reason Admit Date/Time Oct 09, 2018 at 12:16 Initial Consult Date 10/09/18 Type of Consult ID Requesting Provider: NOLA VIDAL MD Date/Time of Note DATE: 11/08/18 TIME: 15:50 24 HR Interval Summary Subjective hx not possible: pt non-verbal, pt critical, pt critical status Exam/Review of Systems Exam Vitals Vital Signs Date Temp Pulse Resp B/P (MAP) Pulse Ox O2 O2 Flow FiO2 Time Delivery Rate 11/08/18 100 16 114/71 95 Mechanical 13:00 (85) Ventilator 11/08/18 98.0 12:00 11/08/18 70 11:05 Intake and Output 11/07/18 11/07/18 11/08/18 1515:00 23:00 07:00 IntakeIntake Total 780 ml 340 ml OutputOutput Total 40 ml 460 ml 275 ml BalanceBalance -40 ml 320 ml 65 ml Constitutional: non-verbal, frail Psych: confusion Head: normocephalic, atraumatic Eyes: nl conjunctiva, nl lids, nl sclera ENMT: nl external ears & nose, nl nasal mucosa & septum, other (dry mucus membranes) Neck: other (trach) Respiratory: crackles/rales, other (congested sounds) Gastrointestinal: soft, non-tender, other (GT and rectal tube); No distended, No tender Genitourinary - Male: other (external catheter) Musculoskeletal: nl extremities to inspection; No swelling Extremities: normal pulses; No edema Neurological: lethargic Skin: rash or lesions (stage II decub of the sacrum) Results Result Diagram: 11/07/18 0500 11/07/18 0500 Results 24hrs Laboratory Tests Test 11/07/18 18:46 11/07/18 20:11 11/08/18 02:09 11/08/18 05:30 Bedside Glucose 129 130 151 Stool Occult Blood POSITIVE Test 11/08/18 07:57 11/08/18 13:37 Bedside Glucose 102 147 Medications Medication Current Medications Acetaminophen (Tylenol Liquid) 650 mg Q4H PRN GTB MILD PAIN(1-3)OR ELEVATED TEMP Last administered on 11/05/18 23:55; Admin Dose 650 MG; Start 10/09/18 at 14:00 Al Hydrox/Mg Hydrox/Simethicone (Mag-Al Plus) 15 ml Q6H PRN PO GASTROINTESTINAL UPSET Last administered on 10/17/18 13:18; Admin Dose 15 ML; Start 10/09/18 at 14:00 Eye Lubricant (Artificial Tears Oph) 1 drop Q6H PRN BOTH EYES DRY EYES Last administered on 11/03/18 09:33; Admin Dose 1 DROP; Start 10/09/18 at 14:00 Bisacodyl (Dulcolax Supp) 10 mg DAILY PRN [place] CONSTIPATION; Start 10/09/18 at 14:00 Clonidine (Catapres) 0.1 mg DAILY PRN GTB ELEVATED BLOOD PRESSURE; Start 10/09/18 at 14:00 Diltiazem HCl (Cardizem Iv) 5 mg Q4 PRN IV ELEVATED HEART RATE Last administered on 11/06/18 18:47; Admin Dose 5 MG; Start 10/09/18 at 14:00 Diphenhydramine HCl (Benadryl Liquid Cup) 25 mg Q6 PRN GTB ITCHING Last administered on 10/22/18 20:25; Admin Dose 25 MG; Start 10/09/18 at 14:00 Duloxetine HCl (Cymbalta) 30 mg DAILY PO Last administered on 11/08/18 08:19; Admin Dose 30 MG; Start 10/10/18 at 09:00 Gabapentin (Neurontin Liquid) 400 mg Q8 GTB Last administered on 11/08/18 13:14; Admin Dose 400 MG; Start 10/09/18 at 15:30 Hydralazine HCl (Apresoline) 10 mg Q4H PRN IV ELEVATED BLOOD PRESSURE; Start 10/09/18 at 14:00 Hydroxychloroquine Sulfate (Plaquenil) 200 mg BID PO Last administered on 11/08/18 08:19; Admin Dose 200 MG; Start 10/09/18 at 21:00 Diagnostic Test (Pha) (Accu-Chek) 1 ea 02 XX Last administered on 11/04/18 02:27; Admin Dose 1 EA; Start 10/10/18 at 02:00 Insulin Aspart (Novolog Insulin Pen) NOVOLOG *CUSTOM* ALGORITHM Q6H SC Last administered on 11/08/18 02:22; Admin Dose 1 UNIT; Start 10/09/18 at 14:00 Lactobacillus Acidophilus (Florajen3 Capsule) 1 each BID GTB Last administered on 11/08/18 08:18; Admin Dose 1 EACH; Start 10/09/18 at 21:00 Lansoprazole (Prevacid) 30 mg BID@,18 GTB Last administered on 11/08/18 05:49; Admin Dose 30 MG; Start 10/09/18 at 18:00 Levetiracetam (Keppra Liquid) 500 mg BID GTB Last administered on 11/08/18 08:18; Admin Dose 500 MG; Start 10/09/18 at 21:00 Magnesium Oxide (Mag-Ox 400) 400 mg BID GTB Last administered on 11/08/18 08:19; Admin Dose 400 MG; Start 10/09/18 at 21:00 Metoclopramide HCl (Reglan) 10 mg TID IV Last administered on 11/08/18 12:53; Admin Dose 10 MG; Start 10/09/18 at 21:00 Miconazole Nitrate (Miconazole 2% Cr) 1 applic BID TOP Last administered on 11/08/18 09:44; Admin Dose 1 APPLIC; Start 10/09/18 at 21:00 Miconazole Nitrate (Miconazole 2% Cr) 1 applic Q12 PRN TOP rash; Start 10/09/18 at 14:00 Ondansetron HCl (Zofran Inj) 4 mg Q4H PRN IV NAUSEA AND/OR VOMITING Last administered on 10/19/18 16:37; Admin Dose 4 MG; Start 10/09/18 at 14:00 Polyethylene Glycol (Miralax) 17 gm DAILY PRN GTB CONSTIPATION; Start 10/09/18 at 14:00 Senna (Senokot) 2 tab Q8 PRN PO CONSTIPATION; Start 10/09/18 at 14:00 Trimethoprim/ Sulfamethoxazole (Bactrim Susp) 40 ml DAILY GTB Last administered on 11/08/18 09:43; Admin Dose 40 ML; Start 10/10/18 at 09:00 Zolpidem Tartrate (Ambien) 5 mg HS PRN PO INSOMNIA Last administered on 11/03/18 01:16; Admin Dose 5 MG; Start 10/09/18 at 14:00 Miscellaneous Information 1 ea NOTE XX ; Start 10/09/18 at 15:00 Glucose (Glutose) 15 gm Q15M PRN PO DECREASED GLUCOSE; Start 10/09/18 at 15:00 Glucose (Glutose) 22.5 gm Q15M PRN PO DECREASED GLUCOSE; Start 10/09/18 at 15:00 Dextrose (D50w Syringe) 25 ml Q15M PRN IV DECREASED GLUCOSE; Start 10/09/18 at 15:00 Dextrose (D50w Syringe) 50 ml Q15M PRN IV DECREASED GLUCOSE; Start 10/09/18 at 15:00 Glucagon (Glucagen) 1 mg Q15M PRN IM DECREASED GLUCOSE; Start 10/09/18 at 15:00 Glucose (Glutose) 15 gm Q15M PRN BUCCAL DECREASED GLUCOSE; Start 10/09/18 at 15:00 Sodium Chloride 500 ml @ 500 mls/hr Q1H PRN IV BLOOD PRESSURE SUPPORT Last administered on 10/31/18 03:35; Admin Dose 500 MLS/HR; Start 10/09/18 at 19:30 Albuterol (Ventolin Hfa) 4 puff Q6H RESP THERAPY INH Last administered on 11/08/18 13:13; Admin Dose 4 PUFF; Start 10/10/18 at 02:00 Ipratropium [place] (Atrovent Hfa) 4 puff Q6H RESP THERAPY INH Last administered on 11/08/18 13:13; Admin Dose 4 PUFF; Start 10/10/18 at 02:00 Lorazepam (Ativan) 1 mg Q4H PRN GTB AGITATION/ANXIETY Last administered on 11/05/18 20:35; Admin Dose 1 MG; Start 10/14/18 at 13:00 Linagliptin (Tradjenta) 5 mg DAILY PO Last administered on 11/08/18 08:18; Admin Dose 5 MG; Start 10/16/18 at 10:30 Fentanyl (Duragesic 50 Mcg/Hr Patch) 1 patch Q72H TRANSDERM Last administered on 11/07/18 20:47; Admin Dose 1 PATCH; Start 10/17/18 at 20:30 Lorazepam (Ativan) 2 mg Q6H GTB Last administered on 11/08/18 15:07; Admin Dose 2 MG; Start 10/20/18 at 15:00 Quetiapine Fumarate (Seroquel) 100 mg BID GTB Last administered on 11/08/18 08:18; Admin Dose 100 MG; Start 10/21/18 at 21:00 Hydromorphone HCl (Dilaudid) 6 mg Q4H PRN PO MODERATE PAIN LEVEL 7-10 Last administered on 11/08/18 14:11; Admin Dose 6 MG; Start 10/21/18 at 22:00 Calcium Carbonate (Ca Carbonate) 1,250 mg QID GTB Last administered on 11/08/18 12:52; Admin Dose 1,250 MG; Start 10/24/18 at 13:00 Metoprolol Tartrate (Lopressor) 5 mg Q4H PRN IV HR>110 Hold SBP<100 Last administered on 11/06/18 16:17; Admin Dose 5 MG; Start 10/28/18 at 12:30 Carvedilol (Coreg) 3.125 mg BID PO Last administered on 11/08/18 08:19; Admin Dose 3.125 MG; Start 11/01/18 at 21:00 Phenylephrine HCl 40 mg/Dextrose 250 ml @ 37.5 mls/hr TITRATE IV Last administered on 11/02/18 09:05; Admin Dose 11.25 MLS/HR; Start 11/01/18 at 13:30 IV Flush (NS 10 ml) 10 ml PRN PRN IV IV PROTOCOL; Start 11/01/18 at 16:30 Collagenase (Santyl) 1 applic DAILY TOP Last administered on 11/08/18 08:19; Admin Dose 1 APPLIC; Start 11/01/18 at 19:30 Norepinephrine 32 mg/Dextrose 250 ml @ 0.47 mls/hr TITRATE IV Last administered on 11/02/18 12:15; Admin Dose 0.47 MLS/HR; Start 3/20/19 at 11:30 Midodrine (Proamatine) 5 mg TID@09,13,17 GTB Last administered on 11/08/18 12:53; Admin Dose 5 MG; Start 11/03/18 at 09:00 Guaifenesin (Robitussin Liquid Cup) 100 mg Q4H PRN PO COUGH Last administered on 11/05/18 20:31; Admin Dose 100 MG; Start 11/03/18 at 12:00 Hydrocortisone (Cortef) 20 mg QAM PEG Last administered on 11/08/18 08:18; Admin Dose 20 MG; Start 11/04/18 at 09:00 Hydrocortisone (Cortef) 20 mg AC DINNER PEG Last administered on 11/07/18 18:38; Admin Dose 20 MG; Start 11/04/18 at 17:05 Hydrocortisone (Cortef) 20 mg HS PEG Last administered on 11/07/18 20:12; Admin Dose 20 MG; Start 11/03/18 at 22:45 Calcitriol (Rocaltrol) 1.5 mcg BID PO Last administered on 11/08/18 08:18; Admin Dose 1.5 MCG; Start 11/07/18 at 21:00 NEMO MARTINEZ M.D. Nov 08, 2018 15:54
[2018-11-08] MEDS: [UNRECOGNIZED DRUG - OTHER] XX SCH (21:00)
[2018-11-08] MEDS: [UNRECOGNIZED DRUG - OTHER] XX SCH (21:00)
[2018-11-09] VITALS (70 sets, daily range): BP systolic 88–170; BP diastolic 56–113; PULSE 102–142; RESP 18–49
[2018-11-09] MEDS: IPRATROPIUM (HFA) 12.9 GM INHALER INH SCH ×4 (01:11→20:13)
[2018-11-09] MEDS: ALBUTEROL HFA 8 GM INHALER INH SCH ×4 (01:11→20:13)
[2018-11-09] MEDS: HYDROmorphONE 2 MG TAB PO PRN ×3 (01:35→23:09)
[2018-11-09] MEDS: ACCU-CHEK XX SCH (02:00)
[2018-11-09] MEDS: INSULIN ASPART [NOVOLOG] 3 ML PEN SC SCH ×4 (03:45→20:54)
[2018-11-09] MEDS: LORAZEPAM 1 MG TAB GTB SCH ×5 (04:11→20:38)
[2018-11-09] MEDS: [UNRECOGNIZED DRUG - OTHER] XX SCH ×3 (05:00→21:00)
[2018-11-09] MEDS: LANSOPRAZOLE 30 MG CAP GTB SCH ×2 (06:08→17:47)
[2018-11-09] MEDS: GABAPENTIN (50 MG/ML PO SYG) GTB SCH ×3 (06:45→23:08)
[2018-11-09] MEDS: [UNRECOGNIZED DRUG - OTHER] XX SCH ×2 (08:19→21:00)
[2018-11-09] MEDS: MIDODRINE 5 MG TAB GTB SCH (08:20)
--- NOTE | 2018-11-09 08:44 | PN ---
DATE: 11/09/2018 SUBJECTIVE: The patient remains in stable condition but serious. The patient is on full ventilatory support. FIO2 is 70%. No other events noted. No hemoptysis, hematemesis or hematochezia. OBJECTIVE: VITAL SIGNS: Blood pressure is 158/113, respirations 29, pulse 118, temperature is 98.0. HEENT: Head is normocephalic. NECK: Supple. HEART: Regular rate. LUNGS: Show diminished breath sounds at the base. ABDOMEN: Soft, nontender to palpation without rebound or guarding. EXTREMITIES: Negative for clubbing, cyanosis, no edema. DERMATOLOGIC: No rashes. MUSCULOSKELETAL: No joint effusion. NEUROLOGIC: No change in exam. MEDICATIONS: Reviewed. LABORATORY DATA: From 11/09/2018 was reviewed. ASSESSMENT AND PLAN: 1. Nonoliguric acute kidney injury with previously normal baseline creatinine. Etiology is secondar y to hemodynamics. Renal function has improved. Continue to monitor. 2. Volume overload, improved. Continue to monitor. We will give intermittent diuretics as needed. 3. Ventilator-dependent respiratory failure. Vent settings and ABG was reviewed. Continue to monit or. 4. Adrenal insufficiency. The patient remains on Cortef. Continue per endocrinology. 5. Hypertension. Blood pressures have been elevated. We will discontinue midodrine. 6. Dysphagia, status post PEG. Continue tube feeding. 7. Seizure disorder. Continue medical management. 8. Hypomagnesemia. Continue to monitor and replete as needed. 9. Mineral bone disorder, monitor calcium and phosphorus levels. Continue vitamin D analogs. 10. Status post shock. 11. Anxiety disorder. Dictated By: UNA ROY DO NR/NTS Conf#: [id number] DID#: [id number] CC: CAMELIA VALENTINE MD; NOLA VIDAL MD;*EndCC*
[2018-11-09] MEDS: LEVETIRACETAM (100 MG/ML) 5ML CUP GTB SCH ×2 (09:18→20:28)
[2018-11-09] MEDS: CA CARBONATE (250 MG/ML) 5ML CUP GTB SCH ×4 (09:18→20:28)
[2018-11-09] MEDS: DULOXETINE 30 MG CAP DR PO SCH (09:19)
[2018-11-09] MEDS: METOCLOPRAMIDE 10 MG INJ IV SCH ×3 (09:19→20:28)
[2018-11-09] MEDS: HYDROCORTISONE 20 MG TAB PEG SCH ×3 (09:19→20:27)
[2018-11-09] MEDS: QUETIAPINE 100 MG TAB GTB SCH ×2 (09:19→20:28)
[2018-11-09] MEDS: HYDROXYCHLOROQUINE 200 MG TAB PO SCH ×2 (09:19→20:28)
[2018-11-09] MEDS: LINAGLIPTIN 5 MG TABLET PO SCH (09:20)
[2018-11-09] MEDS: L ACIDOPHIL/B LACTIS/B LONGUM CAPSULE GTB SCH ×2 (09:20→20:38)
[2018-11-09] MEDS: CALCITRIOL 0.5 MCG CAPSULE PO SCH ×2 (09:21→20:27)
[2018-11-09] MEDS: MAGNESIUM OXIDE 400 MG TAB GTB SCH ×2 (09:21→20:28)
[2018-11-09] MEDS: MICONAZOLE 2% 30 GM CR TOP SCH ×2 (09:23→20:29)
[2018-11-09] MEDS: TRIMETHOPRIM/SULFAMETHOX (PO SYG) GTB SCH (09:23)
[2018-11-09] MEDS: BALSAM PERU/CASTOR OIL 60 GM TUBE TOP SCH ×2 (09:23→20:29)
[2018-11-09] MEDS: COLLAGENASE 5 GM (UD JAR) TOP SCH (09:29)
--- NOTE | 2018-11-09 09:39 | CONS ---
Assessment/Plan Assessment/Plan Assessment/Plan (Daily) Ventilator setting; AC of 20, pressure controlled, PEEP of 8, 70% FiO2. Assessment and recommendations; 1. Patient with history of VD RF and ARDS admitted for worsening hypoxemia without any interval improvement with persistent hypoxemic and hypercapnic respiratory failure despite aggressive mechanical ventilation. Patient has failed multiple FiO2 weaning down trials. 2. History of stable seizure disorder. 3. History of HSV esophagitis. 4. Chronic anemia. 5. History of depression. 6. History of anxiety disorder. 7. Peripheral neuropathy. Continue on supportive care. Prognosis is extremely poor. Hospice should be considered. Consultation Date/Type/Reason Admit Date/Time Oct 09, 2018 at 12:16 Initial Consult Date 10/12/18 Type of Consult Pulmonary/critical care Patient's condition is stable. Remains completely awake and alert. Has remained hemodynamically stable. Patient also has been switched over to volume control ventilation from pressure-controlled mode. General exam; middle-aged male, on ventilator via tracheostomy, awake and alert. Watching television. Currently in no distress. Area Requesting Provider: NOLA VIDAL MD Date/Time of Note DATE: 11/09/18 TIME: 09:36 24 HR Interval Summary Free Text/Dictation Patient's condition remains tenuous at best. Still requiring pressure controlled mode of ventilation with fairly high FiO2. Patient however has remained hemodynamically stable. General exam; middle-aged male, awake, currently no distress. Appropriately responsive. On ventilator via tracheostomy. Exam/Review of Systems Exam Vitals Vital Signs Date Temp Pulse Resp B/P (MAP) Pulse Ox O2 O2 Flow FiO2 Time Delivery Rate 11/09/18 118 29 158/113 93 Mechanical 07:00 (128) Ventilator 11/09/18 70 05:50 11/09/18 98.0 04:00 Intake and Output 11/08/18 11/08/18 11/09/18 1515:00 23:00 07:00 IntakeIntake Total 700 ml 520 ml 420 ml OutputOutput Total 210 ml 510 ml 600 ml BalanceBalance 490 ml 10 ml -180 ml Exam HEENT exam; supple neck, no JVD. No lymphadenopathy. Midline trachea. No thyromegaly. Tracheostomy in place. Patient is edentulous. Chest exam; diminished breath sounds bilaterally with scattered crackles. S1-S2 audible, no murmurs. Regular rhythm. Abdomen exam; soft, nondistended. G-tube in place. Bowel sounds audible. Extremity exam; no peripheral edema. 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 Results Result Diagram: 11/09/18 0439 11/09/18 0439 Results 24hrs Laboratory Tests Test 11/08/18 13:37 11/08/18 21:36 11/09/18 01:33 11/09/18 04:39 Bedside Glucose 147 129 152 White Blood Count 12.0 H Red Blood Count 3.14 L Hemoglobin 9.0 L Hematocrit 30.2 L Mean Corpuscular 96.2 Volume Mean Corpuscular 28.7 L Hemoglobin Mean Corpuscular 29.8 L Hemoglobin Concent Red Cell 15.9 H Distribution Width Platelet Count 214 Mean Platelet Volume 11.0 H Immature 1.100 H Granulocytes % Neutrophils % 74.5 Lymphocytes % 4.8 L Monocytes % 7.6 Eosinophils % 11.5 H Basophils % 0.5 Nucleated Red Blood 0.0 Cells % Immature 0.130 H Granulocytes # Neutrophils # 8.9 H Lymphocytes # 0.6 L Monocytes # 0.9 Eosinophils # 1.4 H Basophils # 0.1 Nucleated Red Blood 0.0 Cells # Sodium Level 137 Potassium Level 3.6 Chloride Level 91 L Carbon Dioxide Level 39 H Anion Gap 7 Blood Urea Nitrogen 20 Creatinine 0.29 L Est Glomerular > 60 Filtrat Rate mL/min Glucose Level 127 Calcium Level 6.4 L Test 11/09/18 09:16 Bedside Glucose 131 Medications Medication Current Medications Acetaminophen (Tylenol Liquid) 650 mg Q4H PRN GTB MILD PAIN(1-3)OR ELEVATED TEMP Last administered on 11/05/18 23:55; Admin Dose 650 MG; Start 10/09/18 at 14:00 Al Hydrox/Mg Hydrox/Simethicone (Mag-Al Plus) 15 ml Q6H PRN PO GASTROINTESTINAL UPSET Last administered on 10/17/18 13:18; Admin Dose 15 ML; Start 10/09/18 at 14:00 Eye Lubricant (Artificial Tears Oph) 1 drop Q6H PRN BOTH EYES DRY EYES Last a dministered on 11/03/18 09:33; Admin Dose 1 DROP; Start 10/09/18 at 14:00 Bisacodyl (Dulcolax Supp) 10 mg DAILY PRN [place] CONSTIPATION; Start 10/09/18 at 14:00 Clonidine (Catapres) 0.1 mg DAILY PRN GTB ELEVATED BLOOD PRESSURE; Start 10/09/18 at 14:00 Diltiazem HCl (Cardizem Iv) 5 mg Q4 PRN IV ELEVATED HEART RATE Last administered on 11/06/18 18:47; Admin Dose 5 MG; Start 10/09/18 at 14:00 Diphenhydramine HCl (Benadryl Liquid Cup) 25 mg Q6 PRN GTB ITCHING Last administered on 10/22/18 20:25; Admin Dose 25 MG; Start 10/09/18 at 14:00 Duloxetine HCl (Cymbalta) 30 mg DAILY PO Last administered on 11/09/18 09:19; Admin Dose 30 MG; Start 10/10/18 at 09:00 Gabapentin (Neurontin Liquid) 400 mg Q8 GTB Last administered on 11/09/18 06:45; Admin Dose 400 MG; Start 10/09/18 at 15:30 Hydralazine HCl (Apresoline) 10 mg Q4H PRN IV ELEVATED BLOOD PRESSURE; Start 10/09/18 at 14:00 Hydroxychloroquine Sulfate (Plaquenil) 200 mg BID PO Last administered on 11/09/18 09:19; Admin Dose 200 MG; Start 10/09/18 at 21:00 Diagnostic Test (Pha) (Accu-Chek) 1 ea 02 XX Last administered on 11/04/18 02: 27; Admin Dose 1 EA; Start 10/10/18 at 02:00 Insulin Aspart (Novolog Insulin Pen) NOVOLOG *CUSTOM* ALGORITHM Q6H SC Last administered on 11/09/18 03:45; Admin Dose 1 UNIT; Start 10/09/18 at 14:00 Lactobacillus Acidophilus (Florajen3 Capsule) 1 each BID GTB Last administered on 11/09/18 09:20; Admin Dose 1 EACH; Start 10/09/18 at 21:00 Lansoprazole (Prevacid) 30 mg BID@,18 GTB Last administered on 11/09/18 06:08; Admin Dose 30 MG; Start 10/09/18 at 18:00 Levetiracetam (Keppra Liquid) 500 mg BID GTB Last administered on 3/27/19at 09:18; Admin Dose 500 MG; Start 10/09/18 at 21:00 Magnesium Oxide (Mag-Ox 400) 400 mg BID GTB Last administered on 11/09/18at 09:21; Admin Dose 400 MG; Start 10/09/18 at 21:00 Metoclopramide HCl (Reglan) 10 mg TID IV Last administered on 11/09/18 09:19; Admin Dose 10 MG; Start 10/09/18 at 21:00 Miconazole Nitrate (Miconazole 2% Cr) 1 applic BID TOP Last administered on 11/09/18at 09:23; Admin Dose 1 APPLIC; Start 10/09/18 at 21:00 Miconazole Nitrate (Miconazole 2% Cr) 1 applic Q12 PRN TOP rash; Start 10/09/18 at 14:00 Ondansetron HCl (Zofran Inj) 4 mg Q4H PRN IV NAUSEA AND/OR VOMITING Last administered on 10/19/18at 16:37; Admin Dose 4 MG; Start 10/09/18 at 14:00 Polyethylene Glycol (Miralax) 17 gm DAILY PRN GTB CONSTIPATION; Start 10/09/18 at 14:00 Senna (Senokot) 2 tab Q8 PRN PO CONSTIPATION; Start 10/09/18 at 14:00 Trimethoprim/ Sulfamethoxazole (Bactrim Susp) 40 ml DAILY GTB Last administered on 11/09/18at 09:23; Admin Dose 40 ML; Start 10/10/18 at 09:00 Zolpidem Tartrate (Ambien) 5 mg HS PRN PO INSOMNIA Last administered on 11/03/18 at 01:16; Admin Dose 5 MG; Start 10/09/18 at 14:00 Miscellaneous Information 1 ea NOTE XX ; Start 10/09/18 at 15:00 Glucose (Glutose) 15 gm Q15M PRN PO DECREASED GLUCOSE; Start 10/09/18 at 15:00 Glucose (Glutose) 22.5 gm Q15M PRN PO DECREASED GLUCOSE; Start 10/09/18 at 15:00 Dextrose (D50w Syringe) 25 ml Q15M PRN IV DECREASED GLUCOSE; Start 10/09/18 at 15:00 Dextrose (D50w Syringe) 50 ml Q15M PRN IV DECREASED GLUCOSE; Start 10/09/18 at 15:00 Glucagon (Glucagen) 1 mg Q15M PRN IM DECREASED GLUCOSE; Start 10/09/18 at 15:00 Glucose (Glutose) 15 gm Q15M PRN BUCCAL DECREASED GLUCOSE; Start 10/09/18 at 15:00 Sodium Chloride 500 ml @ 500 mls/hr Q1H PRN IV BLOOD PRESSURE SUPPORT Last administered on 10/31/18 03:35; Admin Dose 500 MLS/HR; Start 10/09/18 at 19:30 Albuterol (Ventolin Hfa) 4 puff Q6H RESP THERAPY INH Last administered on 11/09/18 08:03; Admin Dose 4 PUFF; Start 10/10/18 at 02:00 Ipratropium [place] (Atrovent Hfa) 4 puff Q6H RESP THERAPY INH Last administered on 11/09/18 08:03; Admin Dose 4 PUFF; Start 10/10/18 at 02:00 Lorazepam (Ativan) 1 mg Q4H PRN GTB AGITATION/ANXIETY Last administered on 11/05/18 20:35; Admin Dose 1 MG; Start 10/14/18 at 13:00 Linagliptin (Tradjenta) 5 mg DAILY PO Last administered on 11/09/18 09:20; Admin Dose 5 MG; Start 10/16/18 at 10:30 Fentanyl (Duragesic 50 Mcg/Hr Patch) 1 patch Q72H TRANSDERM Last administered on 11/07/18 20:47; Admin Dose 1 PATCH; Start 10/17/18 at 20:30 Lorazepam (Ativan) 2 mg Q6H GTB Last administered on 11/09/18 09:23; Admin Dose 2 MG; Start 10/20/18 at 15:00 Quetiapine Fumarate (Seroquel) 100 mg BID GTB Last administered on 11/09/18 09:19; Admin Dose 100 MG; Start 10/21/18 at 21:00 Hydromorphone HCl (Dilaudid) 6 mg Q4H PRN PO MODERATE PAIN LEVEL 7-10 Last administered on 11/09/18 06:45; Admin Dose 6 MG; Start 10/21/18 at 22:00 Calcium Carbonate (Ca Carbonate) 1,250 mg QID GTB Last administered on 11/09/18 09:18; Admin Dose 1,250 MG; Start 10/24/18 at 13:00 Metoprolol Tartrate (Lopressor) 5 mg Q4H PRN IV HR>110 Hold SBP<100 Last administered on 11/06/18 16:17; Admin Dose 5 MG; Start 10/28/18 at 12:30 Carvedilol (Coreg) 3.125 mg BID PO Last administered on 11/09/18 09:19; Admin Dose 3.125 MG; Start 11/01/18 at 21:00 Phenylephrine HCl 40 mg/Dextrose 250 ml @ 37.5 mls/hr TITRATE IV Last administered on 11/02/18 09:05; Admin Dose 11.25 MLS/HR; Start 11/01/18 at 13:30 IV Flush (NS 10 ml) 10 ml PRN PRN IV IV PROTOCOL; Start 11/01/18 at 16:30 Collagenase (Santyl) 1 applic DAILY TOP Last administered on 11/09/18 09:29; Admin Dose 1 APPLIC; Start 11/01/18 at 19:30 Norepinephrine 32 mg/Dextrose 250 ml @ 0.47 mls/hr TITRATE IV Last administered on 11/02/18 12:15; Admin Dose 0.47 MLS/HR; Start 11/02/18 at 11:30 Midodrine (Proamatine) 5 mg TID@,13,17 GTB Last administered on 11/08/18 12:53; Admin Dose 5 MG; Start 11/03/18 at 09:00; Status Hold Guaifenesin (Robitussin Liquid Cup) 100 mg Q4H PRN PO COUGH Last administered on 11/05/18 20:31; Admin Dose 100 MG; Start 11/03/18 at 12:00 Hydrocortisone (Cortef) 20 mg QAM PEG Last administered on 11/09/18 09:19; Admin Dose 20 MG; Start 11/04/18 at 09:00 Hydrocortisone (Cortef) 20 mg AC DINNER PEG Last administered on 11/08/18 17:11; Admin Dose 20 MG; Start 11/04/18 at 17:05 Hydrocortisone (Cortef) 20 mg HS PEG Last administered on 11/08/18 21:32; Admin Dose 20 MG; Start 11/03/18 at 22:45 Calcitriol (Rocaltrol) 1.5 mcg BID PO Last administered on 3/27/19at 09:21; Admin Dose 1.5 MCG; Start 11/07/18 at 21:00 Miscellaneous Information (* Miscellaneous Pharmacy Order) LANSOPRAZOLE 30MG BID EXPIRES ... Q12 XX ; Start 11/08/18 at 21:00 Miscellaneous Information (*Order Clarification Bulletin) MEDICATION REQUIRES CLARIFICATI... Q8H XX ; Start 11/08/18 at 21:00 Miscellaneous Information (*Order Clarification Bulletin) MEDICATION REQUIRES CLARIFICATIO... Q8H XX ; Start 11/08/18 at 21:30 PILAR BERGER Nov 09, 2018 09:39
--- NOTE | 2018-11-09 11:42 | CONS ---
Assessment/Plan Cardiology Heart Failure Type: Acute on Chronic Heart Failure Type: Systolic Assessment/Plan Hospital Course (Demo Recall) IMPRESSION: 1. Tachycardia- S tach. Ongoimg Likley due to anxiety/infection/cardiomyopathy, multifactorial 2. Hypotension-now off pressors with HTN but labile 3. Abnormal electrocardiogram at baseline. 4. Chronic respiratory failure, status post tracheostomy.-weaning vent support 5. Dysphagia, status post G-tube. 6. Quadriplegia. 7. Renal insufficiency, on steroids. 8. Chronic obstructive pulmonary disease. 9. Rheumatoid arthritis. 10. Chronic kidney disease. 11. Diabetes mellitus. 12.Adrenal insufficiency 14. cardiomyopathy-EF 35-40% by echo this admit Recc -ICU -Ongoing Vent support with inability to wean from High percentage FI02 -Continue abx's and f/u cx data -continue steroids -Follow volume status -continue midodrine BP support as necessary -Continue coreg wih increase and start ACEI -dose digoxin IVP -Now DNR Consultation Date/Type/Reason Admit Date/Time Oct 09, 2018 at 12:16 Initial Consult Date 10/09/18 Type of Consult Cardiology Reason for Consultation cardiomyopathy Requesting Provider: NOLA VIDAL MD Date/Time of Note DATE: 11/09/18 TIME: 11:29 Exam/Review of Systems Vital Signs Vitals Vital Signs Date Temp Pulse Resp B/P (MAP) Pulse Ox O2 O2 Flow FiO2 Time Delivery Rate 11/09/18 134 32 90 70 09:00 11/09/18 158/113 Mechanical 07:00 (128) Ventilator 11/09/18 98.0 04:00 Intake and Output 11/08/18 11/08/18 11/09/18 1515:00 23:00 07:00 IntakeIntake Total 700 ml 520 ml 420 ml OutputOutput Total 210 ml 510 ml 600 ml BalanceBalance 490 ml 10 ml -180 ml Exam Exam Review of Systems: CONSTITUTIONAL: No fevers, chills. PULMONARY: trached CARDIOVASCULAR: No chest pain/palpitations GASTROINTESTINAL: No nausea/vomiting. GENITOURINARY: No hematuria/dysuria. MUSCULOSKELETAL: No myagias/arthalgias. PSYCHIATRIC: The patient denies depression. NEUROLOGIC: No weakness Constitutional: alert Psych: no complaints Head: normocephalic Eyes: nl conjunctiva ENMT: mucosa pink and moist Neck: supple, jvd (9 cm water) Respiratory: clear to auscultation Cardiovascular: regular rate and rhythm Gastrointestinal: soft, non-tender Musculoskeletal: muscle tone (normal) Extremities: edema (none) Neurological: other (No focaol deficits) Labs Result Diagram: 11/09/189 11/09/189 Results 24hrs Laboratory Tests Test 11/08/18 13:37 11/08/18 21:36 11/09/18 01:33 11/09/18 04:39 Bedside Glucose 147 129 152 White Blood Count 12.0 H Red Blood Count 3.14 L Hemoglobin 9.0 L Hematocrit 30.2 L Mean Corpuscular 96.2 Volume Mean Corpuscular 28.7 L Hemoglobin Mean Corpuscular 29.8 L Hemoglobin Concent Red Cell 15.9 H Distribution Width Platelet Count 214 Mean Platelet Volume 11.0 H Immature 1.100 H Granulocytes % Neutrophils % 74.5 Lymphocytes % 4.8 L Monocytes % 7.6 Eosinophils % 11.5 H Basophils % 0.5 Nucleated Red Blood 0.0 Cells % Immature 0.130 H Granulocytes # Neutrophils # 8.9 H Lymphocytes # 0.6 L Monocytes # 0.9 Eosinophils # 1.4 H Basophils # 0.1 Nucleated Red Blood 0.0 Cells # Sodium Level 137 Potassium Level 3.6 Chloride Level 91 L Carbon Dioxide Level 39 H Anion Gap 7 Blood Urea Nitrogen 20 Creatinine 0.29 L Est Glomerular > 60 Filtrat Rate mL/min Glucose Level 127 Calcium Level 6.4 L Test 11/09/18 09:16 Bedside Glucose 131 Medications Medications Current Medications Acetaminophen (Tylenol Liquid) 650 mg Q4H PRN GTB MILD PAIN(1-3)OR ELEVATED TEMP Last administered on 11/05/18at 23:55; Admin Dose 650 MG; Start 10/09/18 at 14:00 Al Hydrox/Mg Hydrox/Simethicone (Mag-Al Plus) 15 ml Q6H PRN PO GASTROINTESTINAL UPSET Last administered on 10/17/18 13:18; Admin Dose 15 ML; Start 10/09/18 at 14:00 Eye Lubricant (Artificial Tears Oph) 1 drop Q6H PRN BOTH EYES DRY EYES Last administered on 11/03/18 09:33; Admin Dose 1 DROP; Start 10/09/18 at 14:00 Bisacodyl (Dulcolax Supp) 10 mg DAILY PRN IN CONSTIPATION; Start 10/09/18 at 14:00 Clonidine (Catapres) 0.1 mg DAILY PRN GTB ELEVATED BLOOD PRESSURE; Start 10/09/18 at 14:00 Diltiazem HCl (Cardizem Iv) 5 mg Q4 PRN IV ELEVATED HEART RATE Last administered on 11/06/18 18:47; Admin Dose 5 MG; Start 10/09/18 at 14:00 Diphenhydramine HCl (Benadryl Liquid Cup) 25 mg Q6 PRN GTB ITCHING Last administered on 10/22/18 20:25; Admin Dose 25 MG; Start 10/09/18 at 14:00 Duloxetine HCl (Cymbalta) 30 mg DAILY PO Last administered on 11/09/18 09:19; Admin Dose 30 MG; Start 10/10/18 at 09:00 Gabapentin (Neurontin Liquid) 400 mg Q8 GTB Last administered on 11/09/18 06:45; Admin Dose 400 MG; Start 10/09/18 at 15:30 Hydralazine HCl (Apresoline) 10 mg Q4H PRN IV ELEVATED BLOOD PRESSURE; Start 10/09/18 at 14:00 Hydroxychloroquine Sulfate (Plaquenil) 200 mg BID PO Last administered on 11/09/18 09:19; Admin Dose 200 MG; Start 10/09/18 at 21:00 Diagnostic Test (Pha) (Accu-Chek) 1 ea 02 XX Last administered on 11/04/18 02:27; Admin Dose 1 EA; Start 10/10/18 at 02:00 Insulin Aspart (Novolog Insulin Pen) NOVOLOG *CUSTOM* ALGORITHM Q6H SC Last administered on 11/09/18 03:45; Admin Dose 1 UNIT; Start 10/09/18 at 14:00 Lactobacillus Acidophilus (Florajen3 Capsule) 1 each BID GTB Last administered on 11/09/18 09:20; Admin Dose 1 EACH; Start 10/09/18 at 21:00 Lansoprazole (Prevacid) 30 mg BID@,18 GTB Last administered on 11/09/18 06:08; Admin Dose 30 MG; Start 10/09/18 at 18:00 Levetiracetam (Keppra Liquid) 500 mg BID GTB Last administered on 11/09/18 09:18; Admin Dose 500 MG; Start 10/09/18 at 21:00 Magnesium Oxide (Mag-Ox 400) 400 mg BID GTB Last administered on 11/09/18 09:21; Admin Dose 400 MG; Start 10/09/18 at 21:00 Metoclopramide HCl (Reglan) 10 mg TID IV Last administered on 11/09/18 09:19; Admin Dose 10 MG; Start 10/09/18 at 21:00 Miconazole Nitrate (Miconazole 2% Cr) 1 applic BID TOP Last administered on 11/09/18 09:23; Admin Dose 1 APPLIC; Start 10/09/18 at 21:00 Miconazole Nitrate (Miconazole 2% Cr) 1 applic Q12 PRN TOP rash; Start 10/09/18 at 14:00 Ondansetron HCl (Zofran Inj) 4 mg Q4H PRN IV NAUSEA AND/OR VOMITING Last administered on 10/19/18at 16:37; Admin Dose 4 MG; Start 10/09/18 at 14:00 Polyethylene Glycol (Miralax) 17 gm DAILY PRN GTB CONSTIPATION; Start 10/09/18 at 14:00 Senna (Senokot) 2 tab Q8 PRN PO CONSTIPATION; Start 10/09/18 at 14:00 Trimethoprim/ Sulfamethoxazole (Bactrim Susp) 40 ml DAILY GTB Last administered on 11/09/18 09:23; Admin Dose 40 ML; Start 10/10/18 at 09:00 Zolpidem Tartrate (Ambien) 5 mg HS PRN PO INSOMNIA Last administered on 11/03/18at 01:16; Admin Dose 5 MG; Start 10/09/18 at 14:00 Miscellaneous Information 1 ea NOTE XX ; Start 10/09/18 at 15:00 Glucose (Glutose) 15 gm Q15M PRN PO DECREASED GLUCOSE; Start 10/09/18 at 15:00 Glucose (Glutose) 22.5 gm Q15M PRN PO DECREASED GLUCOSE; Start 10/09/18 at 15:00 Dextrose (D50w Syringe) 25 ml Q15M PRN IV DECREASED GLUCOSE; Start 10/09/18 at 15:00 Dextrose (D50w Syringe) 50 ml Q15M PRN IV DECREASED GLUCOSE; Start 10/09/18 at 15:00 Glucagon (Glucagen) 1 mg Q15M PRN IM DECREASED GLUCOSE; Start 10/09/18 at 15:00 Glucose (Glutose) 15 gm Q15M PRN BUCCAL DECREASED GLUCOSE; Start 10/09/18 at 15:00 Sodium Chloride 500 ml @ 500 mls/hr Q1H PRN IV BLOOD PRESSURE SUPPORT Last administered on 10/31/18 03:35; Admin Dose 500 MLS/HR; Start 10/09/18 at 19:30 Albuterol (Ventolin Hfa) 4 puff Q6H RESP THERAPY INH Last administered on 11/09/18 08:03; Admin Dose 4 PUFF; Start 10/10/18 at 02:00 Ipratropium [place] (Atrovent Hfa) 4 puff Q6H RESP THERAPY INH Last administered on 11/09/18 08:03; Admin Dose 4 PUFF; Start 10/10/18 at 02:00 Lorazepam (Ativan) 1 mg Q4H PRN GTB AGITATION/ANXIETY Last administered on 11/05/18 20:35; Admin Dose 1 MG; Start 10/14/18 at 13:00 Linagliptin (Tradjenta) 5 mg DAILY PO Last administered on 11/09/18 09:20; Admin Dose 5 MG; Start 10/16/18 at 10:30 Fentanyl (Duragesic 50 Mcg/Hr Patch) 1 patch Q72H TRANSDERM Last administered on 11/07/18 20:47; Admin Dose 1 PATCH; Start 10/17/18 at 20:30 Lorazepam (Ativan) 2 mg Q6H GTB Last administered on 11/09/18 09:23; Admin Dose 2 MG; Start 10/20/18 at 15:00 Quetiapine Fumarate (Seroquel) 100 mg BID GTB Last administered on 11/09/18 09:19; Admin Dose 100 MG; Start 10/21/18 at 21:00 Hydromorphone HCl (Dilaudid) 6 mg Q4H PRN PO MODERATE PAIN LEVEL 7-10 Last administered on 11/09/18 06:45; Admin Dose 6 MG; Start 10/21/18 at 22:00 Calcium Carbonate (Ca Carbonate) 1,250 mg QID GTB Last administered on 3/27/19at 09:18; Admin Dose 1,250 MG; Start 10/24/18 at 13:00 Metoprolol Tartrate (Lopressor) 5 mg Q4H PRN IV HR>110 Hold SBP<100 Last administered on 11/06/18 16:17; Admin Dose 5 MG; Start 10/28/18 at 12:30 Carvedilol (Coreg) 3.125 mg BID PO Last administered on 11/09/18 09:19; Admin Dose 3.125 MG; Start 11/01/18 at 21:00 Phenylephrine HCl 40 mg/Dextrose 250 ml @ 37.5 mls/hr TITRATE IV Last administered on 11/02/18 09:05; Admin Dose 11.25 MLS/HR; Start 11/01/18 at 13:30 IV Flush (NS 10 ml) 10 ml PRN PRN IV IV PROTOCOL; Start 11/01/18 at 16:30 Collagenase (Santyl) 1 applic DAILY TOP Last administered on 11/09/18 09:29; Admin Dose 1 APPLIC; Start 11/01/18 at 19:30 Norepinephrine 32 mg/Dextrose 250 ml @ 0.47 mls/hr TITRATE IV Last administered on 11/02/18 12:15; Admin Dose 0.47 MLS/HR; Start 11/02/18 at 11:30 Midodrine (Proamatine) 5 mg TID@,,17 GTB Last administered on 11/08/18 12:53; Admin Dose 5 MG; Start 11/03/18 at 09:00; Status Hold Guaifenesin (Robitussin Liquid Cup) 100 mg Q4H PRN PO COUGH Last administered on 11/05/18 20:31; Admin Dose 100 MG; Start 11/03/18 at 12:00 Hydrocortisone (Cortef) 20 mg QAM PEG Last administered on 11/09/18 09:19; Admin Dose 20 MG; Start 11/04/18 at 09:00 Hydrocortisone (Cortef) 20 mg AC DINNER PEG Last administered on 11/08/18at 17:11; Admin Dose 20 MG; Start 11/04/18 at 17:05 Hydrocortisone (Cortef) 20 mg HS PEG Last administered on 11/08/18 21:32; Admin Dose 20 MG; Start 11/03/18 at 22:45 Calcitriol (Rocaltrol) 1.5 mcg BID PO Last administered on 11/09/18at 09:21; Admin Dose 1.5 MCG; Start 11/07/18 at 21:00 Miscellaneous Information (* Miscellaneous Pharmacy Order) LANSOPRAZOLE 30MG BID EXPIRES 3... Q12 XX ; Start 11/08/18 at 21:00 Miscellaneous Information (*Order Clarification Bulletin) MEDICATION REQUIRES CLARIFICATI... Q8H XX ; Start 11/08/18 at 21:00 Miscellaneous Information (*Order Clarification Bulletin) MEDICATION REQUIRES CLARIFICATIO... Q8H XX ; Start 11/08/18 at 21:30 Miscellaneous Information (* Miscellaneous Pharmacy Order) DULOXETINE ORDER EXPIRES... Q12H XX ; Start 11/09/18 at 11:00 BRISA HAQUE Nov 09, 2018 11:40
--- NOTE | 2018-11-09 13:40 | CONS ---
Assessment/Plan Assessment/Plan Hospital Course (Demo Recall) # sepsis, respiratory - recurrent sepsis on 10/08/2018 due to aspiration pneumonia, HCAP, improved - possible aspiration pneumonia, recurrent pneumonia due to citrobacter, improved - acute on chronic hypoxic and hypercarbic respiratory failure - persistent leukocytosis likely due to steroid margination - h/o tracheostomy on 08/26/2018 - h/o "Increased mild left apical pneumothorax" per CXR on 09/19/2018; no pneumothorax mentioned on subsequent CXR - h/o pneumomediastinum - h/o VAT on 08/11/2018 - h/o asthma/COPD exacerbation - h/o acute tracheobronchitis - h/o MAC infection but CT chest did not demonstrate features suggestive of this per chart review - h/o HCAP due to citrobacter, based on resp culture on 09/13/2018 - h/o aspergillus in resp culture according to a note by Dr. Lopez, a pulmonlogist at [facility] on 07/25/2018 - h/o elevated 1,3 Elft-Y-nzuvbc level = 232 on 08/06/2018 - h/o MSSA septicemia # GI - diarrhea, C diff on 10/09/2018 was negative. 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 x 21 days from 08/26/2018 - h/o EGD, esophageal biopsy showed esophageal squamous mucosa showing acute inflammation, granulation tissue, and ulceration consistent with ulcerative esophagitis, rare multinucleated cells with morphology suggestive of vial cytopathic changes, No cardiac mucosa, intestinal metaplasia, dysplasia, or malignancy defined - GERD - PUD # renal/ - Hypokalemia, recurrent - CKD 2 - BPH # cardiac - tachycardia, persistent - ACD - HTN # endo - T2DM - Hgb A1c 7.2% - secondary adrenal insufficiency; steroid dependent - HLD - Hypoparathyroidism - Hypercalcemia - Pamidronate was ordered # neuro - toxic metabolic encephalopathy - Cervical myopathy - Severe cervical spinal cord stenosis with cord compression from C3-C5, s/p laminectomy in ~03/2018 - Chronic pain syndrome - Functional quadriplegia - Seizure d/o # other chronic conditions - RA with chronic steroid dependence - Immunocompromised status - Fibromyalgia - DDD - H/o multiple rib fracture - Pt completed: meropenem (09/25/2018-10/02/2018), vancomycin (09/25/18-09/28/18), pip/tazo (10/09/2018-10/15/2018) - so far: pneumocystis antigen negative, AFB smear negative and final culture x3 pending, quantiferon TB gold negative, coccidioides serology negative recommendations - ordered repeat CXR; if it shows worsening PNA, will order sputum culture restart antibiotics - continue Bactrim for pneumocystis PPX - management d/w Pt's daughter the critical care time I took to care for this Pt today was from 1400 to 1430 Consultation Date/Type/Reason Admit Date/Time Oct 09, 2018 at 12:16 Initial Consult Date 10/09/18 Type of Consult ID Requesting Provider: NOLA VIDAL MD Date/Time of Note DATE: 11/09/18 TIME: 13:38 24 HR Interval Summary Subjective hx not possible: pt non-verbal, pt critical, pt critical status Exam/Review of Systems Exam Vitals Vital Signs Date Temp Pulse Resp B/P (MAP) Pulse Ox O2 O2 Flow FiO2 Time Delivery Rate 11/09/18 115 23 93 11:35 11/09/18 88/63 (71) 11:00 11/09/18 99.5 09:01 11/09/18 70 09:00 11/09/18 Mechanical 07:00 Ventilator Intake and Output 11/08/18 11/08/18 11/09/18 1515:00 23:00 07:00 IntakeIntake Total 700 ml 520 ml 420 ml OutputOutput Total 210 ml 510 ml 600 ml BalanceBalance 490 ml 10 ml -180 ml Constitutional: non-verbal, frail Psych: no complaints Head: normocephalic, atraumatic Eyes: nl conjunctiva, nl lids, nl sclera ENMT: nl external ears & nose, nl nasal mucosa & septum Respiratory: crackles/rales Cardiovascular: other (tachycardic and regular) Gastrointestinal: soft, non-tender, other (GT, rectal tube) Genitourinary - Male: other (no Brody) Musculoskeletal: nl extremities to inspection Extremities: No edema Skin: laceration, other (stage II decub on the back) Results Result Diagram: 11/09/18 0439 11/09/18 0439 Results 24hrs Laboratory Tests Test 11/08/18 21:36 11/09/18 01:33 11/09/18 04:39 11/09/18 09:16 Bedside Glucose 129 152 131 White Blood Count 12.0 H Red Blood Count 3.14 L Hemoglobin 9.0 L Hematocrit 30.2 L Mean Corpuscular 96.2 Volume Mean Corpuscular 28.7 L Hemoglobin Mean Corpuscular 29.8 L Hemoglobin Concent Red Cell 15.9 H Distribution Width Platelet Count 214 Mean Platelet Volume 11.0 H Immature 1.100 H Granulocytes % Neutrophils % 74.5 Lymphocytes % 4.8 L Monocytes % 7.6 Eosinophils % 11.5 H Basophils % 0.5 Nucleated Red Blood 0.0 Cells % Immature 0.130 H Granulocytes # Neutrophils # 8.9 H Lymphocytes # 0.6 L Monocytes # 0.9 Eosinophils # 1.4 H Basophils # 0.1 Nucleated Red Blood 0.0 Cells # Sodium Level 137 Potassium Level 3.6 Chloride Level 91 L Carbon Dioxide Level 39 H Anion Gap 7 Blood Urea Nitrogen 20 Creatinine 0.29 L Est Glomerular > 60 Filtrat Rate mL/min Glucose Level 127 Calcium Level 6.4 L Medications Medication Current Medications Acetaminophen (Tylenol Liquid) 650 mg Q4H PRN GTB MILD PAIN(1-3)OR ELEVATED TEMP Last administered on 11/05/18at 23:55; Admin Dose 650 MG; Start 10/09/18 at 14:00 Al Hydrox/Mg Hydrox/Simethicone (Mag-Al Plus) 15 ml Q6H PRN PO GASTROINTESTINAL UPSET Last administered on 10/17/18at 13:18; Admin Dose 15 ML; Start 10/09/18 at 14:00 Eye Lubricant (Artificial Tears Oph) 1 drop Q6H PRN BOTH EYES DRY EYES Last administered on 11/03/18at 09:33; Admin Dose 1 DROP; Start 10/09/18 at 14:00 Bisacodyl (Dulcolax Supp) 10 mg DAILY PRN [place] CONSTIPATION; Start 10/09/18 at 14:00 Clonidine (Catapres) 0.1 mg DAILY PRN GTB ELEVATED BLOOD PRESSURE; Start 10/09/18 at 14:00 Diltiazem HCl (Cardizem Iv) 5 mg Q4 PRN IV ELEVATED HEART RATE Last administer ed on 11/06/18at 18:47; Admin Dose 5 MG; Start 10/09/18 at 14:00 Diphenhydramine HCl (Benadryl Liquid Cup) 25 mg Q6 PRN GTB ITCHING Last administered on 10/22/18 20:25; Admin Dose 25 MG; Start 10/09/18 at 14:00 Duloxetine HCl (Cymbalta) 30 mg DAILY PO Last administered on 11/09/18 09:19; Admin Dose 30 MG; Start 10/10/18 at 09:00 Gabapentin (Neurontin Liquid) 400 mg Q8 GTB Last administered on 11/09/18 06:45; Admin Dose 400 MG; Start 10/09/18 at 15:30 Hydralazine HCl (Apresoline) 10 mg Q4H PRN IV ELEVATED BLOOD PRESSURE; Start 10/09/18 at 14:00 Hydroxychloroquine Sulfate (Plaquenil) 200 mg BID PO Last administered on 11/09/18 09:19; Admin Dose 200 MG; Start 10/09/18 at 21:00 Diagnostic Test (Pha) (Accu-Chek) 1 ea 02 XX Last administered on 11/04/18 02:27; Admin Dose 1 EA; Start 10/10/18 at 02:00 Insulin Aspart (Novolog Insulin Pen) NOVOLOG *CUSTOM* ALGORITHM Q6H SC Last administered on 11/09/18 03:45; Admin Dose 1 UNIT; Start 10/09/18 at 14:00 Lactobacillus Acidophilus (Florajen3 Capsule) 1 each BID GTB Last administered on 11/09/18 09:20; Admin Dose 1 EACH; Start 10/09/18 at 21:00 Lansoprazole (Prevacid) 30 mg BID@18 GTB Last administered on 11/09/18 06:08; Admin Dose 30 MG; Start 10/09/18 at 18:00 Levetiracetam (Keppra Liquid) 500 mg BID GTB Last administered on 11/09/18 09:18; Admin Dose 500 MG; Start 10/09/18 at 21:00 Magnesium Oxide (Mag-Ox 400) 400 mg BID GTB Last administered on 11/09/18 09:21; Admin Dose 400 MG; Start 10/09/18 at 21:00 Metoclopramide HCl (Reglan) 10 mg TID IV Last administered on 11/09/18 09:19; Admin Dose 10 MG; Start 10/09/18 at 21:00 Miconazole Nitrate (Miconazole 2% Cr) 1 applic BID TOP Last administered on 11/09/18 09:23; Admin Dose 1 APPLIC; Start 10/09/18 at 21:00 Miconazole Nitrate (Miconazole 2% Cr) 1 applic Q12 PRN TOP rash; Start 10/09/18 at 14:00 Ondansetron HCl (Zofran Inj) 4 mg Q4H PRN IV NAUSEA AND/OR VOMITING Last administered on 10/19/18at 16:37; Admin Dose 4 MG; Start 10/09/18 at 14:00 Polyethylene Glycol (Miralax) 17 gm DAILY PRN GTB CONSTIPATION; Start 10/09/18 at 14:00 Senna (Senokot) 2 tab Q8 PRN PO CONSTIPATION; Start 10/09/18 at 14:00 Trimethoprim/ Sulfamethoxazole (Bactrim Susp) 40 ml DAILY GTB Last administered on 11/09/18 09:23; Admin Dose 40 ML; Start 10/10/18 at 09:00 Zolpidem Tartrate (Ambien) 5 mg HS PRN PO INSOMNIA Last administered on 11/03/18at 01:16; Admin Dose 5 MG; Start 10/09/18 at 14:00 Miscellaneous Information 1 ea NOTE XX ; Start 10/09/18 at 15:00 Glucose (Glutose) 15 gm Q15M PRN PO DECREASED GLUCOSE; Start 10/09/18 at 15:00 Glucose (Glutose) 22.5 gm Q15M PRN PO DECREASED GLUCOSE; Start 10/09/18 at 15:00 Dextrose (D50w Syringe) 25 ml Q15M PRN IV DECREASED GLUCOSE; Start 10/09/18 at 15:00 Dextrose (D50w Syringe) 50 ml Q15M PRN IV DECREASED GLUCOSE; Start 10/09/18 at 15:00 Glucagon (Glucagen) 1 mg Q15M PRN IM DECREASED GLUCOSE; Start 10/09/18 at 15:00 Glucose (Glutose) 15 gm Q15M PRN BUCCAL DECREASED GLUCOSE; Start 10/09/18 at 15:00 Sodium Chloride 500 ml @ 500 mls/hr Q1H PRN IV BLOOD PRESSURE SUPPORT Last administered on 10/31/18at 03:35; Admin Dose 500 MLS/HR; Start 10/09/18 at 19:30 Albuterol (Ventolin Hfa) 4 puff Q6H RESP THERAPY INH Last administered on 11/09/18 08:03; Admin Dose 4 PUFF; Start 10/10/18 at 02:00 Ipratropium [place] (Atrovent Hfa) 4 puff Q6H RESP THERAPY INH Last administered on 11/09/18 08:03; Admin Dose 4 PUFF; Start 10/10/18 at 02:00 Lorazepam (Ativan) 1 mg Q4H PRN GTB AGITATION/ANXIETY Last administered on 20:35; Admin Dose 1 MG; Start 10/14/18 at 13:00 Linagliptin (Tradjenta) 5 mg DAILY PO Last administered on 11/09/18 09:20; Admin Dose 5 MG; Start 10/16/18 at 10:30 Fentanyl (Duragesic 50 Mcg/Hr Patch) 1 patch Q72H TRANSDERM Last administered on 11/07/18 20:47; Admin Dose 1 PATCH; Start 10/17/18 at 20:30 Quetiapine Fumarate (Seroquel) 100 mg BID GTB Last administered on 11/09/18 09:19; Admin Dose 100 MG; Start 10/21/18 at 21:00 Hydromorphone HCl (Dilaudid) 6 mg Q4H PRN PO MODERATE PAIN LEVEL 7-10 Last administered on 11/09/18 06:45; Admin Dose 6 MG; Start 10/21/18 at 22:00 Calcium Carbonate (Ca Carbonate) 1,250 mg QID GTB Last administered on 11/09/18 09:18; Admin Dose 1,250 MG; Start 10/24/18 at 13:00 Metoprolol Tartrate (Lopressor) 5 mg Q4H PRN IV HR>110 Hold SBP<100 Last a dministered on 11/06/18 16:17; Admin Dose 5 MG; Start 10/28/18 at 12:30 Phenylephrine HCl 40 mg/Dextrose 250 ml @ 37.5 mls/hr TITRATE IV Last administered on 11/02/18 09:05; Admin Dose 11.25 MLS/HR; Start 11/01/18 at 13:30 IV Flush (NS 10 ml) 10 ml PRN PRN IV IV PROTOCOL; Start 11/01/18 at 16:30 Collagenase (Santyl) 1 applic DAILY TOP Last administered on 11/09/18 09:29; Admin Dose 1 APPLIC; Start 11/01/18 at 19:30 Norepinephrine 32 mg/Dextrose 250 ml @ 0.47 mls/hr TITRATE IV Last admin istered on 11/02/18 12:15; Admin Dose 0.47 MLS/HR; Start 11/02/18 at 11:30 Midodrine (Proamatine) 5 mg TID@09,13,17 GTB Last administered on 11/08/18 12:53; Admin Dose 5 MG; Start 11/03/18 at 09:00; Status Hold Guaifenesin (Robitussin Liquid Cup) 100 mg Q4H PRN PO COUGH Last administered on 11/05/18 20:31; Admin Dose 100 MG; Start 11/03/18 at 12:00 Hydrocortisone (Cortef) 20 mg QAM PEG Last administered on 11/09/18 09:19; Admin Dose 20 MG; Start 11/04/18 at 09:00 Hydrocortisone (Cortef) 20 mg AC DINNER PEG Last administered on 11/08/18 17:11; Admin Dose 20 MG; Start 11/04/18 at 17:05 Hydrocortisone (Cortef) 20 mg HS PEG Last administered on 11/08/18 21:32; Admin Dose 20 MG; Start 11/03/18 at 22:45 Calcitriol (Rocaltrol) 1.5 mcg BID PO Last administered on 11/09/18 09:21; Adm in Dose 1.5 MCG; Start 11/07/18 at 21:00 Miscellaneous Information (* Miscellaneous Pharmacy Order) LANSOPRAZOLE 30MG BID EXPIRES 3... Q12 XX ; Start 11/08/18 at 21:00 Miscellaneous Information (*Order Clarification Bulletin) MEDICATION REQUIRES CLARIFICATI... Q8H XX ; Start 11/08/18 at 21:00 Miscellaneous Information (*Order Clarification Bulletin) MEDICATION REQUIRES CLARIFICATIO... Q8H XX ; Start 11/08/18 at 21:30 Miscellaneous Information (* Miscellaneous Pharmacy Order) DULOXETINE ORDER EXPIRES... Q12H XX ; Start 11/09/18 at 11:00 Lorazepam (Ativan) 1 mg Q4 GTB ; Start 11/09/18 at 14:00 Carvedilol (Coreg) 6.25 mg BID PO ; Start 11/09/18 at 21:00 Benazepril HCl (Lotensin) 10 mg DAILY PO ; Start 11/10/18 at 09:00 NEMO MARTINEZ M.D. Nov 09, 2018 13:40
[2018-11-09] MEDS ORDERED: CALCIUM GLUCONATE 10% 2 GM in DEXTROSE 5% 100 ML IVPB ONE (14:00)
--- NOTE | 2018-11-09 14:56 | PN ---
Date/Time of Note Date/Time of Note DATE: 11/09/18 TIME: 14:55 Assessment/Plan VTE Prophylaxis Risk score (from [facility] [place]0 risk: 8 SCD applied (from [facility] [place] Yes Pharmacological prophylaxis: NA/contraindicated Pharm contraindication: bleeding Lines/Catheters IV Catheter Type (from [facility]): PICC Line Central line still needed: Yes Urinary Cath still in place: No Assessment/Plan Hospital Course Patient continues on ventilator support with 100% FiO2 and PEEP of 8. Assessment/Plan - Acute on chronic hypoxemic respiratory failure with underlying ARDS, continue ventilatory support. Dr. Villa is following in pulmonology consultation. - Acute kidney injury, resolved, continue to monitor BUN and creatinine. Dr. Hobson is following in nephrology consultation. -Tachycardia, Dr. Joshi is following in cardiology consultation. - Cardiomyopathy with EF 35-40% - Rheumatoid arthritis with steroid dependence. - Dysphagia. Continue GT feeding. - Anemia of chronic disease. - Hypoparathyroidism - Hypertension. - Functional quadriplegia - Hx of severe cervical spinal cord stenosis with cord compression from C3-C5, s/p laminectomy. - History of fibromyalgia rheumatica - Hx of VAT on 08/11/2018 - Poor prognosis, Dr. Zurita is following in palliative care consultation. - DNR status Critical care time spent 30 minutes. Further recommendations based on clinical course. Plan of care discussed with Dr. Rosales Result Diagram: 11/09/18 0439 11/09/18 0439 Results 24hrs Laboratory Tests Test 11/08/18 21:36 11/09/18 01:33 11/09/18 04:39 11/09/18 09:16 Bedside Glucose 129 152 131 White Blood Count 12.0 H Red Blood Count 3.14 L Hemoglobin 9.0 L Hematocrit 30.2 L Mean Corpuscular 96.2 Volume Mean Corpuscular 28.7 L Hemoglobin Mean Corpuscular 29.8 L Hemoglobin Concent Red Cell 15.9 H Distribution Width Platelet Count 214 Mean Platelet Volume 11.0 H Immature 1.100 H Granulocytes % Neutrophils % 74.5 Lymphocytes % 4.8 L Monocytes % 7.6 Eosinophils % 11.5 H Basophils % 0.5 Nucleated Red Blood 0.0 Cells % Immature 0.130 H Granulocytes # Neutrophils # 8.9 H Lymphocytes # 0.6 L Monocytes # 0.9 Eosinophils # 1.4 H Basophils # 0.1 Nucleated Red Blood 0.0 Cells # Sodium Level 137 Potassium Level 3.6 Chloride Level 91 L Carbon Dioxide Level 39 H Anion Gap 7 Blood Urea Nitrogen 20 Creatinine 0.29 L Est Glomerular > 60 Filtrat Rate mL/min Glucose Level 127 Calcium Level 6.4 L Test 11/09/18 14:19 Bedside Glucose 141 Exam/Review of Systems Exam Vitals Vital Signs Date Temp Pulse Resp B/P (MAP) Pulse Ox O2 O2 Flow FiO2 Time Delivery Rate 11/09/18 113 21 101/67 95 14:00 (78) 11/09/18 100 13:00 11/09/18 98.8 12:55 11/09/18 Mechanical 07:00 Ventilator Intake and Output 11/08/18 11/08/18 11/09/18 1515:00 23:00 07:00 IntakeIntake Total 700 ml 520 ml 420 ml OutputOutput Total 210 ml 510 ml 600 ml BalanceBalance 490 ml 10 ml -180 ml Exam Constitutional: alert, oriented, frail Neck: other (trach) Respiratory: diminished breath sounds Cardiovascular: regular rate and rhythm Gastrointestinal: soft, non-tender, other Neurological: nl mental status Results Results 24hrs Laboratory Tests Test 11/08/18 21:36 11/09/18 01:33 11/09/18 04:39 11/09/18 09:16 Bedside Glucose 129 152 131 White Blood Count 12.0 H Red Blood Count 3.14 L Hemoglobin 9.0 L Hematocrit 30.2 L Mean Corpuscular 96.2 Volume Mean Corpuscular 28.7 L Hemoglobin Mean Corpuscular 29.8 L Hemoglobin Concent Red Cell 15.9 H Distribution Width Platelet Count 214 Mean Platelet Volume 11.0 H Immature 1.100 H Granulocytes % Neutrophils % 74.5 Lymphocytes % 4.8 L Monocytes % 7.6 Eosinophils % 11.5 H Basophils % 0.5 Nucleated Red Blood 0.0 Cells % Immature 0.130 H Granulocytes # Neutrophils # 8.9 H Lymphocytes # 0.6 L Monocytes # 0.9 Eosinophils # 1.4 H Basophils # 0.1 Nucleated Red Blood 0.0 Cells # Sodium Level 137 Potassium Level 3.6 Chloride Level 91 L Carbon Dioxide Level 39 H Anion Gap 7 Blood Urea Nitrogen 20 Creatinine 0.29 L Est Glomerular > 60 Filtrat Rate mL/min Glucose Level 127 Calcium Level 6.4 L Test 11/09/18 14:19 Bedside Glucose 141 Medications Medication Current Medications Acetaminophen (Tylenol Liquid) 650 mg Q4H PRN GTB MILD PAIN(1-3)OR ELEVATED TEMP Last administered on 11/05/18 23:55; Admin Dose 650 MG; Start 10/09/18 at 14:00 Al Hydrox/Mg Hydrox/Simethicone (Mag-Al Plus) 15 ml Q6H PRN PO GASTROINTESTINAL UPSET Last administered on 10/17/18 13:18; Admin Dose 15 ML; Start 10/09/18 at 14:00 Eye Lubricant (Artificial Tears Oph) 1 drop Q6H PRN BOTH EYES DRY EYES Last administered on 11/03/18 09:33; Admin Dose 1 DROP; Start 10/09/18 at 14:00 Bisacodyl (Dulcolax Supp) 10 mg DAILY PRN [place] CONSTIPATION; Start 10/09/18 at 14:00 Clonidine (Catapres) 0.1 mg DAILY PRN GTB ELEVATED BLOOD PRESSURE; Start 10/09/18 at 14:00 Diltiazem HCl (Cardizem Iv) 5 mg Q4 PRN IV ELEVATED HEART RATE Last administered on 11/06/18at 18:47; Admin Dose 5 MG; Start 10/09/18 at 14:00 Diphenhydramine HCl (Benadryl Liquid Cup) 25 mg Q6 PRN GTB ITCHING Last administered on 10/22/18 20:25; Admin Dose 25 MG; Start 10/09/18 at 14:00 Duloxetine HCl (Cymbalta) 30 mg DAILY PO Last administered on 11/09/18 09:19; Admin Dose 30 MG; Start 10/10/18 at 09:00 Gabapentin (Neurontin Liquid) 400 mg Q8 GTB Last administered on 11/09/18 14:20; Admin Dose 400 MG; Start 10/09/18 at 15:30 Hydralazine HCl (Apresoline) 10 mg Q4H PRN IV ELEVATED BLOOD PRESSURE; Start 10/09/18 at 14:00 Hydroxychloroquine Sulfate (Plaquenil) 200 mg BID PO Last administered on 11/09/18 09:19; Admin Dose 200 MG; Start 10/09/18 at 21:00 Diagnostic Test (Pha) (Accu-Chek) 1 ea 02 XX Last administered on 11/04/18 02:27; Admin Dose 1 EA; Start 10/10/18 at 02:00 Insulin Aspart (Novolog Insulin Pen) NOVOLOG *CUSTOM* ALGORITHM Q6H SC Last administered on 11/09/18 03:45; Admin Dose 1 UNIT; Start 10/09/18 at 14:00 Lactobacillus Acidophilus (Florajen3 Capsule) 1 each BID GTB Last administered on 11/09/18 09:20; Admin Dose 1 EACH; Start 10/09/18 at 21:00 Lansoprazole (Prevacid) 30 mg BID@,18 GTB Last administered on 11/09/18 06:08; Admin Dose 30 MG; Start 10/09/18 at 18:00 Levetiracetam (Keppra Liquid) 500 mg BID GTB Last administered on 11/09/18 09:18; Admin Dose 500 MG; Start 10/09/18 at 21:00 Magnesium Oxide (Mag-Ox 400) 400 mg BID GTB Last administered on 11/09/18 09:21; Admin Dose 400 MG; Start 10/09/18 at 21:00 Metoclopramide HCl (Reglan) 10 mg TID IV Last administered on 11/09/18 14:20; Admin Dose 10 MG; Start 10/09/18 at 21:00 Miconazole Nitrate (Miconazole 2% Cr) 1 applic BID TOP Last administered on 11/09/18 09:23; Admin Dose 1 APPLIC; Start 10/09/18 at 21:00 Miconazole Nitrate (Miconazole 2% Cr) 1 applic Q12 PRN TOP rash; Start 10/09/18 at 14:00 Ondansetron HCl (Zofran Inj) 4 mg Q4H PRN IV NAUSEA AND/OR VOMITING Last administered on 10/19/18 16:37; Admin Dose 4 MG; Start 10/09/18 at 14:00 Polyethylene Glycol (Miralax) 17 gm DAILY PRN GTB CONSTIPATION; Start 10/09/18 at 14:00 Senna (Senokot) 2 tab Q8 PRN PO CONSTIPATION; Start 10/09/18 at 14:00 Trimethoprim/ Sulfamethoxazole (Bactrim Susp) 40 ml DAILY GTB Last administered on 11/09/18 09:23; Admin Dose 40 ML; Start 10/10/18 at 09:00 Zolpidem Tartrate (Ambien) 5 mg HS PRN PO INSOMNIA Last administered on 11/03/18 01:16; Admin Dose 5 MG; Start 10/09/18 at 14:00 Miscellaneous Information 1 ea NOTE XX ; Start 10/09/18 at 15:00 Glucose (Glutose) 15 gm Q15M PRN PO DECREASED GLUCOSE; Start 10/09/18 at 15:00 Glucose (Glutose) 22.5 gm Q15M PRN PO DECREASED GLUCOSE; Start 10/09/18 at 15:00 Dextrose (D50w Syringe) 25 ml Q15M PRN IV DECREASED GLUCOSE; Start 10/09/18 at 15:00 Dextrose (D50w Syringe) 50 ml Q15M PRN IV DECREASED GLUCOSE; Start 10/09/18 at 15:00 Glucagon (Glucagen) 1 mg Q15M PRN IM DECREASED GLUCOSE; Start 10/09/18 at 15:00 Glucose (Glutose) 15 gm Q15M PRN BUCCAL DECREASED GLUCOSE; Start 10/09/18 at 15:00 Sodium Chloride 500 ml @ 500 mls/hr Q1H PRN IV BLOOD PRESSURE SUPPORT Last administered on 10/31/18 03:35; Admin Dose 500 MLS/HR; Start 10/09/18 at 19:30 Albuterol (Ventolin Hfa) 4 puff Q6H RESP THERAPY INH Last administered on 11/09/18 08:03; Admin Dose 4 PUFF; Start 10/10/18 at 02:00 Ipratropium [place] (Atrovent Hfa) 4 puff Q6H RESP THERAPY INH Last administered on 11/09/18 08:03; Admin Dose 4 PUFF; Start 10/10/18 at 02:00 Lorazepam (Ativan) 1 mg Q4H PRN GTB AGITATION/ANXIETY Last administered on 11/05/18 20:35; Admin Dose 1 MG; Start 10/14/18 at 13:00 Linagliptin (Tradjenta) 5 mg DAILY PO Last administered on 11/09/18 09:20; Admin Dose 5 MG; Start 10/16/18 at 10:30 Fentanyl (Duragesic 50 Mcg/Hr Patch) 1 patch Q72H TRANSDERM Last administered on 11/07/18 20:47; Admin Dose 1 PATCH; Start 10/17/18 at 20:30 Quetiapine Fumarate (Seroquel) 100 mg BID GTB Last administered on 11/09/18 09:19; Admin Dose 100 MG; Start 10/21/18 at 21:00 Hydromorphone HCl (Dilaudid) 6 mg Q4H PRN PO MODERATE PAIN LEVEL 7-10 Last administered on 11/09/18 06:45; Admin Dose 6 MG; Start 10/21/18 at 22:00 Calcium Carbonate (Ca Carbonate) 1,250 mg QID GTB Last administered on 11/09/18 14:20; Admin Dose 1,250 MG; Start 10/24/18 at 13:00 Metoprolol Tartrate (Lopressor) 5 mg Q4H PRN IV HR>110 Hold SBP<100 Last admin istered on 11/06/18 16:17; Admin Dose 5 MG; Start 10/28/18 at 12:30 Phenylephrine HCl 40 mg/Dextrose 250 ml @ 37.5 mls/hr TITRATE IV Last administered on 11/02/18 09:05; Admin Dose 11.25 MLS/HR; Start 11/01/18 at 13:30 IV Flush (NS 10 ml) 10 ml PRN PRN IV IV PROTOCOL; Start 11/01/18 at 16:30 Collagenase (Santyl) 1 applic DAILY TOP Last administered on 11/09/18 09:29; Admin Dose 1 APPLIC; Start 11/01/18 at 19:30 Norepinephrine 32 mg/Dextrose 250 ml @ 0.47 mls/hr TITRATE IV Last administe red on 11/02/18 12:15; Admin Dose 0.47 MLS/HR; Start 11/02/18 at 11:30 Midodrine (Proamatine) 5 mg TID@,,17 GTB Last administered on 11/08/18 12:53; Admin Dose 5 MG; Start 11/03/18 at 09:00; Status Hold Guaifenesin (Robitussin Liquid Cup) 100 mg Q4H PRN PO COUGH Last administered on 11/05/18 20:31; Admin Dose 100 MG; Start 11/03/18 at 12:00 Hydrocortisone (Cortef) 20 mg QAM PEG Last administered on 3/27/19at 09:19; Admin Dose 20 MG; Start 11/04/18 at 09:00 Hydrocortisone (Cortef) 20 mg AC DINNER PEG Last administered on 11/08/18at 17:11; Admin Dose 20 MG; Start 11/04/18 at 17:05 Hydrocortisone (Cortef) 20 mg HS PEG Last administered on 11/08/18at 21:32; Admin Dose 20 MG; Start 11/03/18 at 22:45 Calcitriol (Rocaltrol) 1.5 mcg BID PO Last administered on 11/09/18at 09:21; Admin Dose 1.5 MCG; Start 11/07/18 at 21:00 Miscellaneous Information (* Miscellaneous Pharmacy Order) LANSOPRAZOLE 30MG BID EXPIRES 3... Q12 XX ; Start 11/08/18 at 21:00 Miscellaneous Information (*Order Clarification Bulletin) MEDICATION REQUIRES CLARIFICATI... Q8H XX ; Start 11/08/18 at 21:00 Miscellaneous Information (*Order Clarification Bulletin) MEDICATION REQUIRES CLARIFICATIO... Q8H XX ; Start 11/08/18 at 21:30 Miscellaneous Information (* Miscellaneous Pharmacy Order) DULOXETINE ORDER EXPIRES... Q12H XX ; Start 11/09/18 at 11:00 Lorazepam (Ativan) 1 mg Q4 GTB Last administered on 11/09/18at 14:20; Admin Dose 1 MG; Start 11/09/18 at 14:00 Carvedilol (Coreg) 6.25 mg BID PO ; Start 11/09/18 at 21:00 Benazepril HCl (Lotensin) 10 mg DAILY PO ; Start 11/10/18 at 09:00 Calcium Gluconate 2 gm/Dextrose 120 ml @ 60 mls/hr ONCE ONCE IVPB ; Start 11/09/18 at 14:00; Stop 11/09/18 at 15:59 CAROLYN LANGLEY Nov 09, 2018 14:56
[2018-11-10] VITALS (40 sets, daily range): BP systolic 73–164; BP diastolic 43–143; PULSE 104–128; RESP 20–38
[2018-11-10] MEDS: LORAZEPAM 1 MG TAB GTB SCH ×6 (01:14→20:09)
[2018-11-10] MEDS: ACCU-CHEK XX SCH (02:00)
[2018-11-10] MEDS: INSULIN ASPART [NOVOLOG] 3 ML PEN SC SCH ×4 (02:00→19:58)
[2018-11-10] MEDS: IPRATROPIUM (HFA) 12.9 GM INHALER INH SCH ×4 (02:26→20:34)
[2018-11-10] MEDS: ALBUTEROL HFA 8 GM INHALER INH SCH ×4 (02:26→20:34)
[2018-11-10] MEDS: [UNRECOGNIZED DRUG - OTHER] XX SCH (05:00)
[2018-11-10] MEDS: LANSOPRAZOLE 30 MG CAP GTB SCH ×2 (05:25→18:08)
[2018-11-10] MEDS: GABAPENTIN (50 MG/ML PO SYG) GTB SCH ×3 (05:26→22:03)
[2018-11-10] MEDS: HYDROmorphONE 2 MG TAB PO PRN ×3 (06:15→20:31)
[2018-11-10] MEDS ORDERED: POTASSIUM CHLORIDE 20 MEQ POWDER FOR ORAL SOLN GTB ONE (09:00)
[2018-11-10] MEDS: [UNRECOGNIZED DRUG - OTHER] XX SCH (09:00)
--- NOTE | 2018-11-10 09:10 | PN ---
DATE: 11/10/2018 SUBJECTIVE: The patient remains in serious but stable condition. The patient remains on high FIO2. No other events noted. OBJECTIVE: VITAL SIGNS: Blood pressure is 127/85, pulse 119, respirations 20, temperature 98.5. HEENT: Head is normocephalic. NECK: Supple. HEART: Regular rate. LUNGS: Show diminished breath sounds at the base. ABDOMEN: Soft, nontender to palpation without rebound or guarding. EXTREMITIES: Negative for clubbing, cyanosis. Trace edema. DERMATOLOGIC: No rashes. MUSCULOSKELETAL: No joint effusion. NEUROLOGIC: No change in exam. MEDICATIONS: Reviewed. LABORATORY DATA: Reviewed. IMAGING STUDIES: Reviewed, shows worse extensive upper lobe infiltrates. ASSESSMENT AND PLAN: 1. Nonoliguric acute kidney injury with previously normal baseline creatinine. Etiology of acute ki dney injury is secondary to hemodynamics. Renal function is improved. Continue to monitor. 2. Volume overload, improved. Continue to give intermittent diuretic therapy as needed. 3. Ventilator-dependent respiratory failure. Vent settings and ABG was reviewed. Continue to monit or. 4. Adrenal insufficiency. The patient remains Cortef, continue, followup with endocrinology. 5. Hypokalemia, replete with potassium chloride. 6. Hypertension. Continue current blood pressure regimen. 7. Dysphagia, status post percutaneous endoscopic gastrostomy. Continue tube feeding. 8. Seizure disorder. Continue medical management. 9. Hypomagnesemia. Monitor and replete. 10. Mineral bone disorder. Monitor calcium and phosphorus levels. Continue vitamin D analogs. 11. Status post shock. 12. Anxiety disorder. Dictated By: UNA ROY DO NR/NTS Conf#: [id number] DID#: [id number] CC: CAMELIA VALENTINE MD; NOLA VIDAL MD;*EndCC*
--- NOTE | 2018-11-10 09:29 | CONS ---
Assessment/Plan Assessment/Plan Assessment/Plan (Daily) Ventilator setting; AC of 20, pressure controlled, 70% FiO2, PEEP of 8, Assessment recommendations; 1. Patient admitted for worsening hypoxemia with history of VDR F and severe ARDS. No weaning from ventilator possible because of persistent severe hypoxemic and hypercapnic respiratory failure requiring pressure control mode of ventilation. 2. History of incomplete quadriplegia. 3. History of depression 4. Peripheral neuropathy 5. History of hypertension 6. Anemia 7. Stable seizure disorder. 8. History of HSV esophagitis. Continue current supportive care. Prognosis is very poor. Hospice should be considered. Consultation Date/Type/Reason Admit Date/Time Oct 09, 2018 at 12:16 Initial Consult Date 10/12/18 Type of Consult Pulmonary/critical care Patient's condition is stable. Remains completely awake and alert. Has remained hemodynamically stable. Patient also has been switched over to volume control ventilation from pressure-controlled mode. General exam; middle-aged male, on ventilator via tracheostomy, awake and alert. Watching television. Currently in no distress. Area Requesting Provider: NOLA VIDAL MD Date/Time of Note DATE: 11/10/18 TIME: 09: 24 HR Interval Summary Free Text/Dictation Patient's condition remains critical. Still on pressure control mode of ventilation at high FiO2. Patient however has remained hemodynamically stable. General exam; middle-aged male, on ventilator via tracheostomy, awake and alert. Currently in no distress. Exam/Review of Systems Exam Vitals Vital Signs Date Temp Pulse Resp B/P (MAP) Pulse Ox O2 O2 Flow FiO2 Time Delivery Rate 11/10/18 119 22 08:30 11/10/18 70 08:10 11/10/18 127/85 08:00 (99) 11/10/18 99.6 07:50 11/10/18 89 Mechanical 07:00 Ventilator Intake and Output 11/09/18 11/09/18 11/10/18 1515:00 23:00 07:00 IntakeIntake Total 730 ml 800 ml OutputOutput Total 470 ml 1155 ml 630 ml BalanceBalance -470 ml -425 ml 170 ml Exam HEENT exam; supple neck, no JVD. No lymphadenopathy. Midline trachea. No thyromegaly. Tracheostomy in place. Patient is edentulous. No neck masses. Chest exam; bilateral crackles. S1-S2 audible, no murmurs. Regular rhythm. Abdomen exam; soft, G-tube in place. Bowel sounds audible. No organomegaly. Nontender and nondistended. Extremity exam; no peripheral edema. LOSS PREVENTION AUDITOR exam; patient has stable incomplete quadriplegia. Results Result Diagram: 11/10/18 0514 11/10/18 0514 Results 24hrs Laboratory Tests Test 11/09/18 14:19 11/09/18 20:26 11/10/18 01:16 11/10/18 05:14 Bedside Glucose 141 151 119 White Blood Count 12.9 H Red Blood Count 3.25 L Hemoglobin 9.4 L Hematocrit 30.6 L Mean Corpuscular 94.2 Volume Mean Corpuscular 28.9 L Hemoglobin Mean Corpuscular 30.7 L Hemoglobin Concent Red Cell 15.8 H Distribution Width Platelet Count 245 Mean Platelet Volume 11.0 H Immature 0.900 H Granulocytes % Neutrophils % 67.4 Lymphocytes % 7.6 L Monocytes % 6.9 Eosinophils % 16.6 H Basophils % 0.6 Nucleated Red Blood 0.0 Cells % Immature 0.110 H Granulocytes # Neutrophils # 8.7 H Lymphocytes # 1.0 Monocytes # 0.9 Eosinophils # 2.1 H Basophils # 0.1 Nucleated Red Blood 0.0 Cells # Sodium Level 139 Potassium Level 3.4 L Chloride Level 91 L Carbon Dioxide Level 39 H Anion Gap 9 Blood Urea Nitrogen 20 Creatinine 0.32 L Est Glomerular > 60 Filtrat Rate mL/min Glucose Level 107 Calcium Level 7.6 L Medications Medication Current Medications Acetaminophen (Tylenol Liquid) 650 mg Q4H PRN GTB MILD PAIN(1-3)OR ELEVATED TEMP Last administered on 11/05/18at 23:55; Admin Dose 650 MG; Start 10/09/18 at 14:00 Al Hydrox/Mg Hydrox/Simethicone (Mag-Al Plus) 15 ml Q6H PRN PO GASTROINTESTINAL UPSET Last administered on 10/17/18 13:18; Admin Dose 15 ML; Start 10/09/18 at 14:00 Eye Lubricant (Artificial Tears Oph) 1 drop Q6H PRN BOTH EYES DRY EYES Last administered on 11/03/18at 09:33; Admin Dose 1 DROP; Start 10/09/18 at 14:00 Bisacodyl (Dulcolax Supp) 10 mg DAILY PRN [place] CONSTIPATION; Start 10/09/18 at 14:00 Clonidine (Catapres) 0.1 mg DAILY PRN GTB ELEVATED BLOOD PRESSURE; Start 10/09/18 at 14:00 Diltiazem HCl (Cardizem Iv) 5 mg Q4 PRN IV ELEVATED HEART RATE Last administered on 11/06/18 18:47; Admin Dose 5 MG; Start 10/09/18 at 14:00 Diphenhydramine HCl (Benadryl Liquid Cup) 25 mg Q6 PRN GTB ITCHING Last administered on 10/22/18 20:25; Admin Dose 25 MG; Start 10/09/18 at 14:00 Duloxetine HCl (Cymbalta) 30 mg DAILY PO Last administered on 11/09/18 09:19; Admin Dose 30 MG; Start 10/10/18 at 09:00 Gabapentin (Neurontin Liquid) 400 mg Q8 GTB Last administered on 11/10/18 05:26; Admin Dose 400 MG; Start 10/09/18 at 15:30 Hydralazine HCl (Apresoline) 10 mg Q4H PRN IV ELEVATED BLOOD PRESSURE; Start 10/09/18 at 14:00 Hydroxychloroquine Sulfate (Plaquenil) 200 mg BID PO Last administered on 20:28; Admin Dose 200 MG; Start 10/09/18 at 21:00 Diagnostic Test (Pha) (Accu-Chek) 1 ea 02 XX Last administered on 11/04/18 02:27; Admin Dose 1 EA; Start 10/10/18 at 02:00 Insulin Aspart (Novolog Insulin Pen) NOVOLOG *CUSTOM* ALGORITHM Q6H SC Last administered on 11/09/18 20:54; Admin Dose 1 UNIT; Start 10/09/18 at 14:00 Lactobacillus Acidophilus (Florajen3 Capsule) 1 each BID GTB Last administered on 11/09/18 20:38; Admin Dose 1 EACH; Start 10/09/18 at 21:00 Lansoprazole (Prevacid) 30 mg BID@06,18 GTB Last administered on 11/10/18 05:25; Admin Dose 30 MG; Start 10/09/18 at 18:00 Levetiracetam (Keppra Liquid) 500 mg BID GTB Last administered on 11/09/18 20:28; Admin Dose 500 MG; Start 10/09/18 at 21:00 Magnesium Oxide (Mag-Ox 400) 400 mg BID GTB Last administered on 11/09/18 20:28; Admin Dose 400 MG; Start 10/09/18 at 21:00 Metoclopramide HCl (Reglan) 10 mg TID IV Last administered on 11/09/18 20:28; Admin Dose 10 MG; Start 10/09/18 at 21:00 Miconazole Nitrate (Miconazole 2% Cr) 1 applic BID TOP Last administered on 11/09/18 20:29; Admin Dose 1 APPLIC; Start 10/09/18 at 21:00 Miconazole Nitrate (Miconazole 2% Cr) 1 applic Q12 PRN TOP rash; Start 10/09/18 at 14:00 Ondansetron HCl (Zofran Inj) 4 mg Q4H PRN IV NAUSEA AND/OR VOMITING Last administered on 10/19/18 16:37; Admin Dose 4 MG; Start 10/09/18 at 14:00 Polyethylene Glycol (Miralax) 17 gm DAILY PRN GTB CONSTIPATION; Start 10/09/18 at 14:00 Senna (Senokot) 2 tab Q8 PRN PO CONSTIPATION; Start 10/09/18 at 14:00 Trimethoprim/ Sulfamethoxazole (Bactrim Susp) 40 ml DAILY GTB Last administered on 11/09/18at 09:23; Admin Dose 40 ML; Start 10/10/18 at 09:00 Zolpidem Tartrate (Ambien) 5 mg HS PRN PO INSOMNIA Last administered on 11/03/18at 01:16; Admin Dose 5 MG; Start 10/09/18 at 14:00 Miscellaneous Information 1 ea NOTE XX ; Start 10/09/18 at 15:00 Glucose (Glutose) 15 gm Q15M PRN PO DECREASED GLUCOSE; Start 10/09/18 at 15:00 Glucose (Glutose) 22.5 gm Q15M PRN PO DECREASED GLUCOSE; Start 10/09/18 at 15:00 Dextrose (D50w Syringe) 25 ml Q15M PRN IV DECREASED GLUCOSE; Start 10/09/18 at 15:00 Dextrose (D50w Syringe) 50 ml Q15M PRN IV DECREASED GLUCOSE; Start 10/09/18 at 15:00 Glucagon (Glucagen) 1 mg Q15M PRN IM DECREASED GLUCOSE; Start 10/09/18 at 15:00 Glucose (Glutose) 15 gm Q15M PRN BUCCAL DECREASED GLUCOSE; Start 10/09/18 at 15:00 Sodium Chloride 500 ml @ 500 mls/hr Q1H PRN IV BLOOD PRESSURE SUPPORT Last administered on 10/31/18 03:35; Admin Dose 500 MLS/HR; Start 10/09/18 at 19:30 Albuterol (Ventolin Hfa) 4 puff Q6H RESP THERAPY INH Last administered on 11/10/18 08:37; Admin Dose 4 PUFF; Start 10/10/18 at 02:00 Ipratropium [place] (Atrovent Hfa) 4 puff Q6H RESP THERAPY INH Last administered on 11/10/18 08:37; Admin Dose 4 PUFF; Start 10/10/18 at 02:00 Lorazepam (Ativan) 1 mg Q4H PRN GTB AGITATION/ANXIETY Last administered on 11/05/18 20:35; Admin Dose 1 MG; Start 10/14/18 at 13:00 Linagliptin (Tradjenta) 5 mg DAILY PO Last administered on 11/09/18 09:20; Admin Dose 5 MG; Start 10/16/18 at 10:30 Fentanyl (Duragesic 50 Mcg/Hr Patch) 1 patch Q72H TRANSDERM Last administered on 11/07/18 20:47; Admin Dose 1 PATCH; Start 10/17/18 at 20:30 Quetiapine Fumarate (Seroquel) 100 mg BID GTB Last administered on 11/09/18 20:28; Admin Dose 100 MG; Start 10/21/18 at 21:00 Hydromorphone HCl (Dilaudid) 6 mg Q4H PRN PO MODERATE PAIN LEVEL 7-10 Last administered on 11/10/18 06:15; Admin Dose 6 MG; Start 10/21/18 at 22:00 Calcium Carbonate (Ca Carbonate) 1,250 mg QID GTB Last administered on 11/09/18 20:28; Admin Dose 1,250 MG; Start 10/24/18 at 13:00 Metoprolol Tartrate (Lopressor) 5 mg Q4H PRN IV HR>110 Hold SBP<100 Last administered on 11/06/18 16:17; Admin Dose 5 MG; Start 10/28/18 at 12:30 Phenylephrine HCl 40 mg/Dextrose 250 ml @ 37.5 mls/hr TITRATE IV Last administered on 11/02/18 09:05; Admin Dose 11.25 MLS/HR; Start 11/01/18 at 13:30 IV Flush (NS 10 ml) 10 ml PRN PRN IV IV PROTOCOL; Start 11/01/18 at 16:30 Collagenase (Santyl) 1 applic DAILY TOP Last administered on 11/09/18 09:29; Admin Dose 1 APPLIC; Start 11/01/18 at 19:30 Norepinephrine 32 mg/Dextrose 250 ml @ 0.47 mls/hr TITRATE IV Last administered on 11/02/18 12:15; Admin Dose 0.47 MLS/HR; Start 11/02/18 at 11:30 Midodrine (Proamatine) 5 mg TID@09,13,17 GTB Last administered on 11/08/18 12:53; Admin Dose 5 MG; Start 11/03/18 at 09:00; Status Hold Guaifenesin (Robitussin Liquid Cup) 100 mg Q4H PRN PO COUGH Last administered on 11/05/18 20:31; Admin Dose 100 MG; Start 11/03/18 at 12:00 Hydrocortisone (Cortef) 20 mg QAM PEG Last administered on 11/09/18 09:19; Admin Dose 20 MG; Start 11/04/18 at 09:00 Hydrocortisone (Cortef) 20 mg AC DINNER PEG Last administered on 11/09/18 17:47; Admin Dose 20 MG; Start 11/04/18 at 17:05 Hydrocortisone (Cortef) 20 mg HS PEG Last administered on 11/09/18 20:27; Admin Dose 20 MG; Start 11/03/18 at 22:45 Calcitriol (Rocaltrol) 1.5 mcg BID PO Last administered on 11/09/18 20:27; Admin Dose 1.5 MCG; Start 11/07/18 at 21:00 Miscellaneous Information (* Miscellaneous Pharmacy Order) LANSOPRAZOLE 30MG BID EXPIRES 3/... Q12 XX ; Start 11/08/18 at 21:00 Miscellaneous Information (*Order Clarification Bulletin) MEDICATION REQUIRES CLARIFICATI... Q8H XX ; Start 11/08/18 at 21:00 Miscellaneous Information (*Order Clarification Bulletin) MEDICATION REQUIRES CLARIFICATIO... Q8H XX ; Start 11/08/18 at 21:30 Miscellaneous Information (* Miscellaneous Pharmacy Order) DULOXETINE ORDER EXPIRES... Q12H XX ; Start 11/09/18 at 11:00 Lorazepam (Ativan) 1 mg Q4 GTB Last administered on 11/10/18at 05:26; Admin Dose 1 MG; Start 11/09/18 at 14:00 Carvedilol (Coreg) 6.25 mg BID PO Last administered on 11/09/18at 20:28; Admin Dose 6.25 MG; Start 11/09/18 at 21:00 Benazepril HCl (Lotensin) 10 mg DAILY PO ; Start 11/10/18 at 09:00 PILAR BERGER Nov 10, 2018 09:29
[2018-11-10] MEDS: CALCITRIOL 0.5 MCG CAPSULE PO SCH ×2 (09:45→20:09)
[2018-11-10] MEDS: MAGNESIUM OXIDE 400 MG TAB GTB SCH ×2 (09:45→20:09)
[2018-11-10] MEDS: LEVETIRACETAM (100 MG/ML) 5ML CUP GTB SCH ×2 (09:45→20:09)
[2018-11-10] MEDS: CA CARBONATE (250 MG/ML) 5ML CUP GTB SCH ×4 (09:45→20:09)
[2018-11-10] MEDS: L ACIDOPHIL/B LACTIS/B LONGUM CAPSULE GTB SCH ×2 (09:46→20:09)
[2018-11-10] MEDS: QUETIAPINE 100 MG TAB GTB SCH ×2 (09:46→20:10)
[2018-11-10] MEDS: DULOXETINE 30 MG CAP DR PO SCH (09:46)
[2018-11-10] MEDS: HYDROXYCHLOROQUINE 200 MG TAB PO SCH ×2 (09:46→20:09)
[2018-11-10] MEDS: HYDROCORTISONE 20 MG TAB PEG SCH ×3 (09:46→20:09)
[2018-11-10] MEDS: METOCLOPRAMIDE 10 MG INJ IV SCH ×3 (09:47→20:15)
[2018-11-10] MEDS: BENAZEPRIL 10 MG TAB PO SCH (09:47)
[2018-11-10] MEDS: BALSAM PERU/CASTOR OIL 60 GM TUBE TOP SCH ×2 (09:47→20:10)
[2018-11-10] MEDS: MICONAZOLE 2% 30 GM CR TOP SCH ×2 (09:48→20:10)
[2018-11-10] MEDS: COLLAGENASE 5 GM (UD JAR) TOP SCH (09:48)
[2018-11-10] MEDS: TRIMETHOPRIM/SULFAMETHOX (PO SYG) GTB SCH (09:49)
[2018-11-10] MEDS: LINAGLIPTIN 5 MG TABLET PO SCH (09:49)
--- NOTE | 2018-11-10 11:20 | PN ---
Date/Time of Note Date/Time of Note DATE: 11/10/18 TIME: 11:06 Assessment/Plan VTE Prophylaxis Risk score (from [facility] [place]0 risk: 7 SCD applied (from [facility] [place] Yes Pharmacological prophylaxis: NA/contraindicated Pharm contraindication: other Lines/Catheters IV Catheter Type (from [facility] PICC Line Central line still needed: Yes Urinary Cath still in place: No Assessment/Plan Hospital Course Patient is tachycardic, chest x-ray with worsening extensive bilateral upper lobe and lower lobe interstitial infiltrates, patient continues on ventilator support with high oxygen requirements and high PEEP. Assessment/Plan - Acute on chronic hypoxemic respiratory failure with underlying ARDS, continue ventilatory support. Dr. Villa is following in pulmonology consultation. - Acute kidney injury, resolved, continue to monitor BUN and creatinine. Dr. Hobson is following in nephrology consultation. -Tachycardia, Dr. Joshi is following in cardiology consultation. - Cardiomyopathy with EF 35-40% - Rheumatoid arthritis with steroid dependence. - Dysphagia. Continue GT feeding. - Anemia of chronic disease. - Hypoparathyroidism - Hypertension. - Functional quadriplegia - Hx of severe cervical spinal cord stenosis with cord compression from C3-C5, s/p laminectomy. - History of fibromyalgia rheumatica - Hx of VAT on 08/11/2018 - Poor prognosis, Dr. Zurita is following in palliative care consultation. - DNR status Critical care time spent 30 minutes. Further recommendations based on clinical course. Plan of care discussed with Dr. Rosales Result Diagram: 11/10/18 0514 11/10/18 0514 Results 24hrs Laboratory Tests Test 11/09/18 14:19 11/09/18 20:26 11/10/18 01:16 11/10/18 05:14 Bedside Glucose 141 151 119 White Blood Count 12.9 H Red Blood Count 3.25 L Hemoglobin 9.4 L Hematocrit 30.6 L Mean Corpuscular 94.2 Volume Mean Corpuscular 28.9 L Hemoglobin Mean Corpuscular 30.7 L Hemoglobin Concent Red Cell 15.8 H Distribution Width Platelet Count 245 Mean Platelet Volume 11.0 H Immature 0.900 H Granulocytes % Neutrophils % 67.4 Lymphocytes % 7.6 L Monocytes % 6.9 Eosinophils % 16.6 H Basophils % 0.6 Nucleated Red Blood 0.0 Cells % Immature 0.110 H Granulocytes # Neutrophils # 8.7 H Lymphocytes # 1.0 Monocytes # 0.9 Eosinophils # 2.1 H Basophils # 0.1 Nucleated Red Blood 0.0 Cells # Sodium Level 139 Potassium Level 3.4 L Chloride Level 91 L Carbon Dioxide Level 39 H Anion Gap 9 Blood Urea Nitrogen 20 Creatinine 0.32 L Est Glomerular > 60 Filtrat Rate mL/min Glucose Level 107 Calcium Level 7.6 L Test 11/10/18 09:37 Bedside Glucose 122 Exam/Review of Systems Exam Vitals Vital Signs Date Temp Pulse Resp B/P (MAP) Pulse Ox O2 O2 Flow FiO2 Time Delivery Rate 11/10/18 119 22 08:30 11/10/18 70 08:10 11/10/18 127/85 08:00 (99) 11/10/18 99.6 07:50 11/10/18 89 Mechanical 07:00 Ventilator Intake and Output 11/09/18 11/09/18 11/10/18 1515:00 23:00 07:00 IntakeIntake Total 730 ml 800 ml OutputOutput Total 470 ml 1155 ml 630 ml BalanceBalance -470 ml -425 ml 170 ml Exam Constitutional: alert, oriented, frail Neck: other (trach) Respiratory: diminished breath sounds Cardiovascular: regular rate and rhythm Gastrointestinal: soft, non-tender, other Neurological: nl mental status Results Results 24hrs Laboratory Tests Test 11/09/18 14:19 11/09/18 20:26 11/10/18 01:16 11/10/18 05:14 Bedside Glucose 141 151 119 White Blood Count 12.9 H Red Blood Count 3.25 L Hemoglobin 9.4 L Hematocrit 30.6 L Mean Corpuscular 94.2 Volume Mean Corpuscular 28.9 L Hemoglobin Mean Corpuscular 30.7 L Hemoglobin Concent Red Cell 15.8 H Distribution Width Platelet Count 245 Mean Platelet Volume 11.0 H Immature 0.900 H Granulocytes % Neutrophils % 67.4 Lymphocytes % 7.6 L Monocytes % 6.9 Eosinophils % 16.6 H Basophils % 0.6 Nucleated Red Blood 0.0 Cells % Immature 0.110 H Granulocytes # Neutrophils # 8.7 H Lymphocytes # 1.0 Monocytes # 0.9 Eosinophils # 2.1 H Basophils # 0.1 Nucleated Red Blood 0.0 Cells # Sodium Level 139 Potassium Level 3.4 L Chloride Level 91 L Carbon Dioxide Level 39 H Anion Gap 9 Blood Urea Nitrogen 20 Creatinine 0.32 L Est Glomerular > 60 Filtrat Rate mL/min Glucose Level 107 Calcium Level 7.6 L Test 11/10/18 09:37 Bedside Glucose 122 Medications Medication Current Medications Acetaminophen (Tylenol Liquid) 650 mg Q4H PRN GTB MILD PAIN(1-3)OR ELEVATED TEMP Last administered on 11/05/18 23:55; Admin Dose 650 MG; Start 10/09/18 at 14:00 Al Hydrox/Mg Hydrox/Simethicone (Mag-Al Plus) 15 ml Q6H PRN PO GASTROINTESTINAL UPSET Last administered on 10/17/18 13:18; Admin Dose 15 ML; Start 10/09/18 at 14:00 Eye Lubricant (Artificial Tears Oph) 1 drop Q6H PRN BOTH EYES DRY EYES Last administered on 11/03/18 09:33; Admin Dose 1 DROP; Start 10/09/18 at 14:00 Bisacodyl (Dulcolax Supp) 10 mg DAILY PRN [place] CONSTIPATION; Start 10/09/18 at 14:00 Clonidine (Catapres) 0.1 mg DAILY PRN GTB ELEVATED BLOOD PRESSURE; Start 10/09/18 at 14:00 Diltiazem HCl (Cardizem Iv) 5 mg Q4 PRN IV ELEVATED HEART RATE Last administered on 11/06/18 18:47; Admin Dose 5 MG; Start 10/09/18 at 14:00 Diphenhydramine HCl (Benadryl Liquid Cup) 25 mg Q6 PRN GTB ITCHING Last administered on 10/22/18 20:25; Admin Dose 25 MG; Start 10/09/18 at 14:00 Duloxetine HCl (Cymbalta) 30 mg DAILY PO Last administered on 11/10/18 09:46; Admin Dose 30 MG; Start 10/10/18 at 09:00 Gabapentin (Neurontin Liquid) 400 mg Q8 GTB Last administered on 11/10/18 05:26; Admin Dose 400 MG; Start 10/09/18 at 15:30 Hydralazine HCl (Apresoline) 10 mg Q4H PRN IV ELEVATED BLOOD PRESSURE; Start 10/09/18 at 14:00 Hydroxychloroquine Sulfate (Plaquenil) 200 mg BID PO Last administered on 11/10/18 09:46; Admin Dose 200 MG; Start 10/09/18 at 21:00 Diagnostic Test (Pha) (Accu-Chek) 1 ea 02 XX Last administered on 11/04/18 02:27; Admin Dose 1 EA; Start 10/10/18 at 02:00 Insulin Aspart (Novolog Insulin Pen) NOVOLOG *CUSTOM* ALGORITHM Q6H SC Last administered on 11/09/18 20:54; Admin Dose 1 UNIT; Start 10/09/18 at 14:00 Lactobacillus Acidophilus (Florajen3 Capsule) 1 each BID GTB Last administered on 11/10/18 09:46; Admin Dose 1 EACH; Start 10/09/18 at 21:00 Lansoprazole (Prevacid) 30 mg BID@,18 GTB Last administered on 11/10/18 05:25; Admin Dose 30 MG; Start 10/09/18 at 18:00 Levetiracetam (Keppra Liquid) 500 mg BID GTB Last administered on 11/10/18 09:45; Admin Dose 500 MG; Start 10/09/18 at 21:00 Magnesium Oxide (Mag-Ox 400) 400 mg BID GTB Last administered on 11/10/18 09:45; Admin Dose 400 MG; Start 10/09/18 at 21:00 Metoclopramide HCl (Reglan) 10 mg TID IV Last administered on 11/10/18 09:47; Admin Dose 10 MG; Start 10/09/18 at 21:00 Miconazole Nitrate (Miconazole 2% Cr) 1 applic BID TOP Last administered on 11/10/18 09:48; Admin Dose 1 APPLIC; Start 10/09/18 at 21:00 Miconazole Nitrate (Miconazole 2% Cr) 1 applic Q12 PRN TOP rash; Start 10/09/18 at 14:00 Ondansetron HCl (Zofran Inj) 4 mg Q4H PRN IV NAUSEA AND/OR VOMITING Last administered on 10/19/18 16:37; Admin Dose 4 MG; Start 10/09/18 at 14:00 Polyethylene Glycol (Miralax) 17 gm DAILY PRN GTB CONSTIPATION; Start 10/09/18 at 14:00 Senna (Senokot) 2 tab Q8 PRN PO CONSTIPATION; Start 10/09/18 at 14:00 Trimethoprim/ Sulfamethoxazole (Bactrim Susp) 40 ml DAILY GTB Last administered on 11/10/18 09:49; Admin Dose 40 ML; Start 10/10/18 at 09:00 Zolpidem Tartrate (Ambien) 5 mg HS PRN PO INSOMNIA Last administered on 11/03/18 01:16; Admin Dose 5 MG; Start 10/09/18 at 14:00 Miscellaneous Information 1 ea NOTE XX ; Start 10/09/18 at 15:00 Glucose (Glutose) 15 gm Q15M PRN PO DECREASED GLUCOSE; Start 10/09/18 at 15:00 Glucose (Glutose) 22.5 gm Q15M PRN PO DECREASED GLUCOSE; Start 10/09/18 at 15:00 Dextrose (D50w Syringe) 25 ml Q15M PRN IV DECREASED GLUCOSE; Start 10/09/18 at 15:00 Dextrose (D50w Syringe) 50 ml Q15M PRN IV DECREASED GLUCOSE; Start 10/09/18 at 15:00 Glucagon (Glucagen) 1 mg Q15M PRN IM DECREASED GLUCOSE; Start 10/09/18 at 15:00 Glucose (Glutose) 15 gm Q15M PRN BUCCAL DECREASED GLUCOSE; Start 10/09/18 at 15:00 Sodium Chloride 500 ml @ 500 mls/hr Q1H PRN IV BLOOD PRESSURE SUPPORT Last administered on 10/31/18 03:35; Admin Dose 500 MLS/HR; Start 10/09/18 at 19:30 Albuterol (Ventolin Hfa) 4 puff Q6H RESP THERAPY INH Last administered on 11/10/18 08:37; Admin Dose 4 PUFF; Start 10/10/18 at 02:00 Ipratropium [place] (Atrovent Hfa) 4 puff Q6H RESP THERAPY INH Last ad ministered on 11/10/18 08:37; Admin Dose 4 PUFF; Start 10/10/18 at 02:00 Lorazepam (Ativan) 1 mg Q4H PRN GTB AGITATION/ANXIETY Last administered on 11/05/18 20:35; Admin Dose 1 MG; Start 10/14/18 at 13:00 Linagliptin (Tradjenta) 5 mg DAILY PO Last administered on 11/10/18 09:49; Admin Dose 5 MG; Start 10/16/18 at 10:30 Fentanyl (Duragesic 50 Mcg/Hr Patch) 1 patch Q72H TRANSDERM Last administered on 11/07/18 20:47; Admin Dose 1 PATCH; Start 10/17/18 at 20:30 Quetiapine Fumarate (Seroquel) 100 mg BID GTB Last administered on 11/10/18 09:46; Admin Dose 100 MG; Start 10/21/18 at 21:00 Hydromorphone HCl (Dilaudid) 6 mg Q4H PRN PO MODERATE PAIN LEVEL 7-10 Last administered on 11/10/18 06:15; Admin Dose 6 MG; Start 10/21/18 at 22:00 Calcium Carbonate (Ca Carbonate) 1,250 mg QID GTB Last administered on 11/10/18 09:45; Admin Dose 1,250 MG; Start 10/24/18 at 13:00 Metoprolol Tartrate (Lopressor) 5 mg Q4H PRN IV HR>110 Hold SBP<100 Last administered on 11/06/18 16:17; Admin Dose 5 MG; Start 10/28/18 at 12:30 Phenylephrine HCl 40 mg/Dextrose 250 ml @ 37.5 mls/hr TITRATE IV Last admi nistered on 11/02/18 09:05; Admin Dose 11.25 MLS/HR; Start 11/01/18 at 13:30 IV Flush (NS 10 ml) 10 ml PRN PRN IV IV PROTOCOL; Start 11/01/18 at 16:30 Collagenase (Santyl) 1 applic DAILY TOP Last administered on 11/10/18 09:48; Admin Dose 1 APPLIC; Start 11/01/18 at 19:30 Norepinephrine 32 mg/Dextrose 250 ml @ 0.47 mls/hr TITRATE IV Last administered on 11/02/18 12:15; Admin Dose 0.47 MLS/HR; Start 11/02/18 at 11:30 Midodrine (Proamatine) 5 mg TID@,,17 GTB Last administered on 11/08/18 12:53; Admin Dose 5 MG; Start 11/03/18 at 09:00; Status Hold Guaifenesin (Robitussin Liquid Cup) 100 mg Q4H PRN PO COUGH Last administered on 11/05/18 20:31; Admin Dose 100 MG; Start 11/03/18 at 12:00 Hydrocortisone (Cortef) 20 mg QAM PEG Last administered on 11/10/18 09:46; Admin Dose 20 MG; Start 11/04/18 at 09:00 Hydrocortisone (Cortef) 20 mg AC DINNER PEG Last administered on 11/09/18 17:47; Admin Dose 20 MG; Start 11/04/18 at 17:05 Hydrocortisone (Cortef) 20 mg HS PEG Last administered on 11/09/18 20:27; Admin Dose 20 MG; Start 11/03/18 at 22:45 Calcitriol (Rocaltrol) 1.5 mcg BID PO Last administered on 11/10/18 09:45; Admin Dose 1.5 MCG; Start 11/07/18 at 21:00 Lorazepam (Ativan) 1 mg Q4 GTB Last administered on 11/10/18 09:47; Admin Dose 1 MG; Start 11/09/18 at 14:00 Carvedilol (Coreg) 6.25 mg BID PO Last administered on 11/10/18 09:46; Admin Dose 6.25 MG; Start 11/09/18 at 21:00 Benazepril HCl (Lotensin) 10 mg DAILY PO Last administered on 11/10/18 09:47; Admin Dose 10 MG; Start 11/10/18 at 09:00 CAROLYN LANGLEY Nov 10, 2018 11:16
--- NOTE | 2018-11-10 12:19 | CONS ---
Assessment/Plan Cardiology Heart Failure Type: Acute on Chronic Heart Failure Type: Systolic Assessment/Plan Hospital Course (Demo Recall) IMPRESSION: 1. Tachycardia- S tach. Ongoimg Likley due to anxiety/infection/cardiomyopathy, multifactorial 2. Hypotension-now off pressors with HTN but labile 3. Abnormal electrocardiogram at baseline. 4. Chronic respiratory failure, status post tracheostomy.-weaning vent support 5. Dysphagia, status post G-tube. 6. Quadriplegia. 7. Renal insufficiency, on steroids. 8. Chronic obstructive pulmonary disease. 9. Rheumatoid arthritis. 10. Chronic kidney disease. 11. Diabetes mellitus. 12.Adrenal insufficiency 14. cardiomyopathy-EF 35-40% by echo this admit Recc -ICU -Ongoing Vent support with inability to wean from High percentage FI02 -Continue abx's and f/u cx data -continue steroids -Follow volume status -Continue coreg and ACEI at will increase as tolerated if BP remains stable -dose digoxin IVP and then start standing PO digoxin in attempt to improve HR/contractility -start teodora dose lasix diuresis -Now DNR Consultation Date/Type/Reason Admit Date/Time Oct 09, 2018 at 12:16 Initial Consult Date 10/09/18 Type of Consult Cardiology Reason for Consultation tachycardia/cardiomyopathy Requesting Provider: NOLA VIDAL MD Date/Time of Note DATE: 11/10/18 TIME: 12:15 Exam/Review of Systems Vital Signs Vitals Vital Signs Date Temp Pulse Resp B/P (MAP) Pulse Ox O2 O2 Flow FiO2 Time Delivery Rate 11/10/18 111 30 88 70 11:15 11/10/18 127/85 08:00 (99) 11/10/18 99.6 07:50 11/10/18 Mechanical 07:00 Ventilator Intake and Output 11/09/18 11/09/18 11/10/18 1515:00 23:00 07:00 IntakeIntake Total 730 ml 800 ml OutputOutput Total 470 ml 1155 ml 630 ml BalanceBalance -470 ml -425 ml 170 ml Exam Exam Review of Systems: CONSTITUTIONAL: No fevers, chills. PULMONARY: No sob CARDIOVASCULAR: No chest pain/palpitations GASTROINTESTINAL: No nausea/vomiting. GENITOURINARY: No hematuria/dysuria. MUSCULOSKELETAL: No myagias/arthalgias. PSYCHIATRIC: The patient denies depression. NEUROLOGIC: No weakness Constitutional: alert Psych: no complaints Head: normocephalic ENMT: mucosa pink and moist Neck: supple, jvd (9 cm water) Respiratory: diminished breath sounds Cardiovascular: regular rate and rhythm Gastrointestinal: soft, non-tender Musculoskeletal: muscle tone Extremities: edema (none) Neurological: other (No focal deficits) Labs Result Diagram: 11/10/18 0514 11/10/18 0514 Results 24hrs Laboratory Tests Test 11/09/18 14:19 11/09/18 20:26 11/10/18 01:16 11/10/18 05:14 Bedside Glucose 141 151 119 White Blood Count 12.9 H Red Blood Count 3.25 L Hemoglobin 9.4 L Hematocrit 30.6 L Mean Corpuscular 94.2 Volume Mean Corpuscular 28.9 L Hemoglobin Mean Corpuscular 30.7 L Hemoglobin Concent Red Cell 15.8 H Distribution Width Platelet Count 245 Mean Platelet Volume 11.0 H Immature 0.900 H Granulocytes % Neutrophils % 67.4 Lymphocytes % 7.6 L Monocytes % 6.9 Eosinophils % 16.6 H Basophils % 0.6 Nucleated Red Blood 0.0 Cells % Immature 0.110 H Granulocytes # Neutrophils # 8.7 H Lymphocytes # 1.0 Monocytes # 0.9 Eosinophils # 2.1 H Basophils # 0.1 Nucleated Red Blood 0.0 Cells # Sodium Level 139 Potassium Level 3.4 L Chloride Level 91 L Carbon Dioxide Level 39 H Anion Gap 9 Blood Urea Nitrogen 20 Creatinine 0.32 L Est Glomerular > 60 Filtrat Rate mL/min Glucose Level 107 Calcium Level 7.6 L Test 11/10/18 09:37 Bedside Glucose 122 Medications Medications Current Medications Acetaminophen (Tylenol Liquid) 650 mg Q4H PRN GTB MILD PAIN(1-3)OR ELEVATED TEMP Last administered on 11/05/18 23:55; Admin Dose 650 MG; Start 10/09/18 at 14:00 Al Hydrox/Mg Hydrox/Simethicone (Mag-Al Plus) 15 ml Q6H PRN PO GASTROINTESTINAL UPSET Last administered on 10/17/18 13:18; Admin Dose 15 ML; Start 10/09/18 at 14:00 Eye Lubricant (Artificial Tears Oph) 1 drop Q6H PRN BOTH EYES DRY EYES Last administered on 11/03/18at 09:33; Admin Dose 1 DROP; Start 10/09/18 at 14:00 Bisacodyl (Dulcolax Supp) 10 mg DAILY PRN [place] CONSTIPATION; Start 10/09/18 at 14:00 Clonidine (Catapres) 0.1 mg DAILY PRN GTB ELEVATED BLOOD PRESSURE; Start 10/09/18 at 14:00 Diltiazem HCl (Cardizem Iv) 5 mg Q4 PRN IV ELEVATED HEART RATE Last administere d on 11/06/18 18:47; Admin Dose 5 MG; Start 10/09/18 at 14:00 Diphenhydramine HCl (Benadryl Liquid Cup) 25 mg Q6 PRN GTB ITCHING Last administered on 10/22/18 20:25; Admin Dose 25 MG; Start 10/09/18 at 14:00 Duloxetine HCl (Cymbalta) 30 mg DAILY PO Last administered on 11/10/18 09:46; Admin Dose 30 MG; Start 10/10/18 at 09:00 Gabapentin (Neurontin Liquid) 400 mg Q8 GTB Last administered on 11/10/18 05:26; Admin Dose 400 MG; Start 10/09/18 at 15:30 Hydralazine HCl (Apresoline) 10 mg Q4H PRN IV ELEVATED BLOOD PRESSURE; Start 10/09/18 at 14:00 Hydroxychloroquine Sulfate (Plaquenil) 200 mg BID PO Last administered on 11/10/18 09:46; Admin Dose 200 MG; Start 10/09/18 at 21:00 Diagnostic Test (Pha) (Accu-Chek) 1 ea 02 XX Last administered on 11/04/18 02:27; Admin Dose 1 EA; Start 10/10/18 at 02:00 Insulin Aspart (Novolog Insulin Pen) NOVOLOG *CUSTOM* ALGORITHM Q6H SC Last administered on 11/09/18 20:54; Admin Dose 1 UNIT; Start 10/09/18 at 14:00 Lactobacillus Acidophilus (Florajen3 Capsule) 1 each BID GTB Last administered on 11/10/18 09:46; Admin Dose 1 EACH; Start 10/09/18 at 21:00 Lansoprazole (Prevacid) 30 mg BID@06,18 GTB Last administered on 11/10/18 05:25; Admin Dose 30 MG; Start 10/09/18 at 18:00 Levetiracetam (Keppra Liquid) 500 mg BID GTB Last administered on 11/10/18 09:45; Admin Dose 500 MG; Start 10/09/18 at 21:00 Magnesium Oxide (Mag-Ox 400) 400 mg BID GTB Last administered on 11/10/18 09:45; Admin Dose 400 MG; Start 10/09/18 at 21:00 Metoclopramide HCl (Reglan) 10 mg TID IV Last administered on 11/10/18 09:47; Admin Dose 10 MG; Start 10/09/18 at 21:00 Miconazole Nitrate (Miconazole 2% Cr) 1 applic BID TOP Last administered on 11/10/18 09:48; Admin Dose 1 APPLIC; Start 10/09/18 at 21:00 Miconazole Nitrate (Miconazole 2% Cr) 1 applic Q12 PRN TOP rash; Start 10/09/18 at 14:00 Ondansetron HCl (Zofran Inj) 4 mg Q4H PRN IV NAUSEA AND/OR VOMITING Last administered on 10/19/18at 16:37; Admin Dose 4 MG; Start 10/09/18 at 14:00 Polyethylene Glycol (Miralax) 17 gm DAILY PRN GTB CONSTIPATION; Start 10/09/18 at 14:00 Senna (Senokot) 2 tab Q8 PRN PO CONSTIPATION; Start 10/09/18 at 14:00 Trimethoprim/ Sulfamethoxazole (Bactrim Susp) 40 ml DAILY GTB Last administered on 11/10/18 09:49; Admin Dose 40 ML; Start 10/10/18 at 09:00 Zolpidem Tartrate (Ambien) 5 mg HS PRN PO INSOMNIA Last administered on 11/03/18at 01:16; Admin Dose 5 MG; Start 10/09/18 at 14:00 Miscellaneous Information 1 ea NOTE XX ; Start 10/09/18 at 15:00 Glucose (Glutose) 15 gm Q15M PRN PO DECREASED GLUCOSE; Start 10/09/18 at 15:00 Glucose (Glutose) 22.5 gm Q15M PRN PO DECREASED GLUCOSE; Start 10/09/18 at 15:00 Dextrose (D50w Syringe) 25 ml Q15M PRN IV DECREASED GLUCOSE; Start 10/09/18 at 15:00 Dextrose (D50w Syringe) 50 ml Q15M PRN IV DECREASED GLUCOSE; Start 10/09/18 at 15:00 Glucagon (Glucagen) 1 mg Q15M PRN IM DECREASED GLUCOSE; Start 10/09/18 at 15:00 Glucose (Glutose) 15 gm Q15M PRN BUCCAL DECREASED GLUCOSE; Start 10/09/18 at 15:00 Sodium Chloride 500 ml @ 500 mls/hr Q1H PRN IV BLOOD PRESSURE SUPPORT Last administered on 10/31/18 03:35; Admin Dose 500 MLS/HR; Start 10/09/18 at 19:30 Albuterol (Ventolin Hfa) 4 puff Q6H RESP THERAPY INH Last administered on 11/10/18 08:37; Admin Dose 4 PUFF; Start 10/10/18 at 02:00 Ipratropium [place] (Atrovent Hfa) 4 puff Q6H RESP THERAPY INH Last administered on 11/10/18 08:37; Admin Dose 4 PUFF; Start 10/10/18 at 02:00 Lorazepam (Ativan) 1 mg Q4H PRN GTB AGITATION/ANXIETY Last administered on 20:35; Admin Dose 1 MG; Start 10/14/18 at 13:00 Linagliptin (Tradjenta) 5 mg DAILY PO Last administered on 11/10/18 09:49; Admin Dose 5 MG; Start 10/16/18 at 10:30 Fentanyl (Duragesic 50 Mcg/Hr Patch) 1 patch Q72H TRANSDERM Last administered on 11/07/18 20:47; Admin Dose 1 PATCH; Start 10/17/18 at 20:30 Quetiapine Fumarate (Seroquel) 100 mg BID GTB Last administered on 11/10/18 09:46; Admin Dose 100 MG; Start 10/21/18 at 21:00 Hydromorphone HCl (Dilaudid) 6 mg Q4H PRN PO MODERATE PAIN LEVEL 7-10 Last administered on 11/10/18 06:15; Admin Dose 6 MG; Start 10/21/18 at 22:00 Calcium Carbonate (Ca Carbonate) 1,250 mg QID GTB Last administered on 11/10/18 09:45; Admin Dose 1,250 MG; Start 10/24/18 at 13:00 Metoprolol Tartrate (Lopressor) 5 mg Q4H PRN IV HR>110 Hold SBP<100 Last ad ministered on 11/06/18 16:17; Admin Dose 5 MG; Start 10/28/18 at 12:30 Phenylephrine HCl 40 mg/Dextrose 250 ml @ 37.5 mls/hr TITRATE IV Last administered on 11/02/18 09:05; Admin Dose 11.25 MLS/HR; Start 11/01/18 at 13:30 IV Flush (NS 10 ml) 10 ml PRN PRN IV IV PROTOCOL; Start 11/01/18 at 16:30 Collagenase (Santyl) 1 applic DAILY TOP Last administered on 11/10/18 09:48; Admin Dose 1 APPLIC; Start 11/01/18 at 19:30 Norepinephrine 32 mg/Dextrose 250 ml @ 0.47 mls/hr TITRATE IV Last admini stered on 11/02/18 12:15; Admin Dose 0.47 MLS/HR; Start 11/02/18 at 11:30 Midodrine (Proamatine) 5 mg TID@,,17 GTB Last administered on 11/08/18 12:53; Admin Dose 5 MG; Start 11/03/18 at 09:00; Status Hold Guaifenesin (Robitussin Liquid Cup) 100 mg Q4H PRN PO COUGH Last administered on 11/05/18 20:31; Admin Dose 100 MG; Start 11/03/18 at 12:00 Hydrocortisone (Cortef) 20 mg QAM PEG Last administered on 11/10/18 09:46; Admin Dose 20 MG; Start 11/04/18 at 09:00 Hydrocortisone (Cortef) 20 mg AC DINNER PEG Last administered on 11/09/18 17:47; Admin Dose 20 MG; Start 11/04/18 at 17:05 Hydrocortisone (Cortef) 20 mg HS PEG Last administered on 11/09/18 20:27; Admin Dose 20 MG; Start 11/03/18 at 22:45 Calcitriol (Rocaltrol) 1.5 mcg BID PO Last administered on 11/10/18 09:45; Admin Dose 1.5 MCG; Start 11/07/18 at 21:00 Lorazepam (Ativan) 1 mg Q4 GTB Last administered on 3/28/19at 09:47; Admin Dose 1 MG; Start 11/09/18 at 14:00 Carvedilol (Coreg) 6.25 mg BID PO Last administered on 11/10/18 09:46; Admin Dose 6.25 MG; Start 11/09/18 at 21:00 Benazepril HCl (Lotensin) 10 mg DAILY PO Last administered on 11/10/18 09:47; Admin Dose 10 MG; Start 11/10/18 at 09:00 BRISA HAQUE Nov 10, 2018 12:19
--- NOTE | 2018-11-10 12:27 | CONS ---
Assessment/Plan Assessment/Plan Problems: (1) Hypoparathyroidism Status: Chronic Comment: Calciums are coming up with the usage of supplementation parenterally. Please note his overall prognosis is poor Qualifiers: Hypoparathyroidism type: idiopathic Qualified Codes: E20.0 - Idiopathic hypoparathyroidism (2) Adrenal insufficiency due to steroid withdrawal Status: Chronic Comment: Stable on steroid dosing (3) Diabetes mellitus type 2 in nonobese Status: Chronic Comment: Adequate control. Consultation Date/Type/Reason Admit Date/Time Oct 09, 2018 at 12:16 Initial Consult Date 10/12/18 Type of Consult Endocrinology Reason for Consultation Primary hypoparathyroidism with hypocalcemia; chronic adrenal insufficiency due to steroid usage for rheumatoid arthritis; borderline diabetes mellitus type 2 Requesting Provider: NOLA VIDAL MD Date/Time of Note DATE: 11/10/18 TIME: 12:25 24 HR Interval Summary Free Text/Dictation Patient remains poorly responsive Subjective hx not possible: pt non-verbal Detailed Summary Endocrine: no complaints Exam/Review of Systems Exam Vitals Vital Signs Date Temp Pulse Resp B/P (MAP) Pulse Ox O2 O2 Flow FiO2 Time Delivery Rate 11/10/18 111 30 88 70 11:15 11/10/18 127/85 08:00 (99) 11/10/18 99.6 07:50 11/10/18 Mechanical 07:00 Ventilator Intake and Output 11/09/18 11/09/18 11/10/18 1515:00 23:00 07:00 IntakeIntake Total 730 ml 800 ml OutputOutput Total 470 ml 1155 ml 630 ml BalanceBalance -470 ml -425 ml 170 ml Constitutional: non-verbal Respiratory: clear to auscultation, normal air movement Results Result Diagram: 11/10/18 0514 11/10/18 0514 Results 24hrs Laboratory Tests Test 11/09/18 14:19 11/09/18 20:26 11/10/18 01:16 11/10/18 05:14 Bedside Glucose 141 151 119 White Blood Count 12.9 H Red Blood Count 3.25 L Hemoglobin 9.4 L Hematocrit 30.6 L Mean Corpuscular 94.2 Volume Mean Corpuscular 28.9 L Hemoglobin Mean Corpuscular 30.7 L Hemoglobin Concent Red Cell 15.8 H Distribution Width Platelet Count 245 Mean Platelet Volume 11.0 H Immature 0.900 H Granulocytes % Neutrophils % 67.4 Lymphocytes % 7.6 L Monocytes % 6.9 Eosinophils % 16.6 H Basophils % 0.6 Nucleated Red Blood 0.0 Cells % Immature 0.110 H Granulocytes # Neutrophils # 8.7 H Lymphocytes # 1.0 Monocytes # 0.9 Eosinophils # 2.1 H Basophils # 0.1 Nucleated Red Blood 0.0 Cells # Sodium Level 139 Potassium Level 3.4 L Chloride Level 91 L Carbon Dioxide Level 39 H Anion Gap 9 Blood Urea Nitrogen 20 Creatinine 0.32 L Est Glomerular > 60 Filtrat Rate mL/min Glucose Level 107 Calcium Level 7.6 L Test 11/10/18 09:37 Bedside Glucose 122 Medications Medication Current Medications Acetaminophen (Tylenol Liquid) 650 mg Q4H PRN GTB MILD PAIN(1-3)OR ELEVATED TEMP Last administered on 11/05/18 23:55; Admin Dose 650 MG; Start 10/09/18 at 14:00 Al Hydrox/Mg Hydrox/Simethicone (Mag-Al Plus) 15 ml Q6H PRN PO GASTROINTESTINAL UPSET Last administered on 10/17/18 13:18; Admin Dose 15 ML; Start 10/09/18 at 14:00 Eye Lubricant (Artificial Tears Oph) 1 drop Q6H PRN BOTH EYES DRY EYES Last administered on 11/03/18 09:33; Admin Dose 1 DROP; Start 10/09/18 at 14:00 Bisacodyl (Dulcolax Supp) 10 mg DAILY PRN [place] CONSTIPATION; Start 10/09/18 at 14:00 Clonidine (Catapres) 0.1 mg DAILY PRN GTB ELEVATED BLOOD PRESSURE; Start 10/09/18 at 14:00 Diltiazem HCl (Cardizem Iv) 5 mg Q4 PRN IV ELEVATED HEART RATE Last administered on 11/06/18 18:47; Admin Dose 5 MG; Start 10/09/18 at 14:00 Diphenhydramine HCl (Benadryl Liquid Cup) 25 mg Q6 PRN GTB ITCHING Last administered on 10/22/18 20:25; Admin Dose 25 MG; Start 10/09/18 at 14:00 Duloxetine HCl (Cymbalta) 30 mg DAILY PO Last administered on 11/10/18 09:46; Admin Dose 30 MG; Start 10/10/18 at 09:00 Gabapentin (Neurontin Liquid) 400 mg Q8 GTB Last administered on 11/10/18 05:26; Admin Dose 400 MG; Start 10/09/18 at 15:30 Hydralazine HCl (Apresoline) 10 mg Q4H PRN IV ELEVATED BLOOD PRESSURE; Start 10/09/18 at 14:00 Hydroxychloroquine Sulfate (Plaquenil) 200 mg BID PO Last administered on 11/10/18 09:46; Admin Dose 200 MG; Start 10/09/18 at 21:00 Diagnostic Test (Pha) (Accu-Chek) 1 ea 02 XX Last administered on 11/04/18 02:27; Admin Dose 1 EA; Start 10/10/18 at 02:00 Insulin Aspart (Novolog Insulin Pen) NOVOLOG *CUSTOM* ALGORITHM Q6H SC Last administered on 11/09/18 20:54; Admin Dose 1 UNIT; Start 10/09/18 at 14:00 Lactobacillus Acidophilus (Florajen3 Capsule) 1 each BID GTB Last administered on 11/10/18 09:46; Admin Dose 1 EACH; Start 10/09/18 at 21:00 Lansoprazole (Prevacid) 30 mg BID@,18 GTB Last administered on 11/10/18 05:25; Admin Dose 30 MG; Start 10/09/18 at 18:00 Levetiracetam (Keppra Liquid) 500 mg BID GTB Last administered on 11/10/18 09:45; Admin Dose 500 MG; Start 10/09/18 at 21:00 Magnesium Oxide (Mag-Ox 400) 400 mg BID GTB Last administered on 11/10/18 09:45; Admin Dose 400 MG; Start 10/09/18 at 21:00 Metoclopramide HCl (Reglan) 10 mg TID IV Last administered on 11/10/18 09:47; Admin Dose 10 MG; Start 10/09/18 at 21:00 Miconazole Nitrate (Miconazole 2% Cr) 1 applic BID TOP Last administered on 11/10/18 09:48; Admin Dose 1 APPLIC; Start 10/09/18 at 21:00 Miconazole Nitrate (Miconazole 2% Cr) 1 applic Q12 PRN TOP rash; Start 10/09/18 at 14:00 Ondansetron HCl (Zofran Inj) 4 mg Q4H PRN IV NAUSEA AND/OR VOMITING Last administered on 10/19/18 16:37; Admin Dose 4 MG; Start 10/09/18 at 14:00 Polyethylene Glycol (Miralax) 17 gm DAILY PRN GTB CONSTIPATION; Start 10/09/18 at 14:00 Senna (Senokot) 2 tab Q8 PRN PO CONSTIPATION; Start 10/09/18 at 14:00 Trimethoprim/ Sulfamethoxazole (Bactrim Susp) 40 ml DAILY GTB Last administered on 11/10/18 09:49; Admin Dose 40 ML; Start 10/10/18 at 09:00 Zolpidem Tartrate (Ambien) 5 mg HS PRN PO INSOMNIA Last administered on 11/03/18 01:16; Admin Dose 5 MG; Start 10/09/18 at 14:00 Miscellaneous Information 1 ea NOTE XX ; Start 10/09/18 at 15:00 Glucose (Glutose) 15 gm Q15M PRN PO DECREASED GLUCOSE; Start 10/09/18 at 15:00 Glucose (Glutose) 22.5 gm Q15M PRN PO DECREASED GLUCOSE; Start 10/09/18 at 15:00 Dextrose (D50w Syringe) 25 ml Q15M PRN IV DECREASED GLUCOSE; Start 10/09/18 at 15:00 Dextrose (D50w Syringe) 50 ml Q15M PRN IV DECREASED GLUCOSE; Start 10/09/18 at 15:00 Glucagon (Glucagen) 1 mg Q15M PRN IM DECREASED GLUCOSE; Start 10/09/18 at 15:00 Glucose (Glutose) 15 gm Q15M PRN BUCCAL DECREASED GLUCOSE; Start 10/09/18 at 15:00 Sodium Chloride 500 ml @ 500 mls/hr Q1H PRN IV BLOOD PRESSURE SUPPORT Last administered on 10/31/18 03:35; Admin Dose 500 MLS/HR; Start 10/09/18 at 19:30 Albuterol (Ventolin Hfa) 4 puff Q6H RESP THERAPY INH Last administered on 11/10/18 08:37; Admin Dose 4 PUFF; Start 10/10/18 at 02:00 Ipratropium [place] (Atrovent Hfa) 4 puff Q6H RESP THERAPY INH Last administered on 11/10/18 08:37; Admin Dose 4 PUFF; Start 10/10/18 at 02:00 Lorazepam (Ativan) 1 mg Q4H PRN GTB AGITATION/ANXIETY Last administered on 11/05/18 20:35; Admin Dose 1 MG; Start 10/14/18 at 13:00 Linagliptin (Tradjenta) 5 mg DAILY PO Last administered on 11/10/18 09:49; Admin Dose 5 MG; Start 10/16/18 at 10:30 Fentanyl (Duragesic 50 Mcg/Hr Patch) 1 patch Q72H TRANSDERM Last administered on 11/07/18 20:47; Admin Dose 1 PATCH; Start 10/17/18 at 20:30 Quetiapine Fumarate (Seroquel) 100 mg BID GTB Last administered on 11/10/18 09:46; Admin Dose 100 MG; Start 10/21/18 at 21:00 Hydromorphone HCl (Dilaudid) 6 mg Q4H PRN PO MODERATE PAIN LEVEL 7-10 Last administered on 11/10/18 06:15; Admin Dose 6 MG; Start 10/21/18 at 22:00 Calcium Carbonate (Ca Carbonate) 1,250 mg QID GTB Last administered on 11/10/18 09:45; Admin Dose 1,250 MG; Start 10/24/18 at 13:00 Metoprolol Tartrate (Lopressor) 5 mg Q4H PRN IV HR>110 Hold SBP<100 Last administered on 11/06/18 16:17; Admin Dose 5 MG; Start 10/28/18 at 12:30 Phenylephrine HCl 40 mg/Dextrose 250 ml @ 37.5 mls/hr TITRATE IV Last administered on 11/02/18 09:05; Admin Dose 11.25 MLS/HR; Start 11/01/18 at 13:30 IV Flush (NS 10 ml) 10 ml PRN PRN IV IV PROTOCOL; Start 11/01/18 at 16:30 Collagenase (Santyl) 1 applic DAILY TOP Last administered on 11/10/18 09:48; Admin Dose 1 APPLIC; Start 11/01/18 at 19:30 Norepinephrine 32 mg/Dextrose 250 ml @ 0.47 mls/hr TITRATE IV Last administered on 11/02/18 12:15; Admin Dose 0.47 MLS/HR; Start 11/02/18 at 11:30 Midodrine (Proamatine) 5 mg TID@,13,17 GTB Last administered on 11/08/18 12:53; Admin Dose 5 MG; Start 11/03/18 at 09:00; Status Hold Guaifenesin (Robitussin Liquid Cup) 100 mg Q4H PRN PO COUGH Last administered on 11/05/18 20:31; Admin Dose 100 MG; Start 11/03/18 at 12:00 Hydrocortisone (Cortef) 20 mg QAM PEG Last administered on 11/10/18 09:46; Admin Dose 20 MG; Start 11/04/18 at 09:00 Hydrocortisone (Cortef) 20 mg AC DINNER PEG Last administered on 11/09/18 17:47; Admin Dose 20 MG; Start 11/04/18 at 17:05 Hydrocortisone (Cortef) 20 mg HS PEG Last administered on 11/09/18 20:27; Admin Dose 20 MG; Start 11/03/18 at 22:45 Calcitriol (Rocaltrol) 1.5 mcg BID PO Last administered on 11/10/18 09:45; Admin Dose 1.5 MCG; Start 11/07/18 at 21:00 Lorazepam (Ativan) 1 mg Q4 GTB Last administered on 11/10/18 09:47; Admin Dose 1 MG; Start 11/09/18 at 14:00 Carvedilol (Coreg) 6.25 mg BID PO Last administered on 11/10/18 09:46; Admin Dose 6.25 MG; Start 11/09/18 at 21:00 Benazepril HCl (Lotensin) 10 mg DAILY PO Last administered on 11/10/18 09:47; Admin Dose 10 MG; Start 11/10/18 at 09:00 Digoxin (Digoxin) 250 mcg ONCE ONCE IV ; Start 11/10/18 at 12:30; Stop 11/10/18 at 12:31; Status UNV Digoxin (Digoxin) 0.25 mg DAILY@13 PO ; Start 11/11/18 at 13:00; Status UNV Furosemide (Lasix) 20 mg DAILY IV ; Start 11/10/18 at 12:30; Status UNV KEV ISSA MD Nov 10, 2018 12:27
[2018-11-10] MEDS ORDERED: DIGOXIN 500 MCG INJ IV ONE (12:30)
[2018-11-10] MEDS: FUROSEMIDE 20 MG INJ IV SCH (12:48)
[2018-11-10] MEDS ORDERED: CALCIUM GLUCONATE 10% 2 GM in DEXTROSE 5% 100 ML IVPB ONE (14:00)
--- NOTE | 2018-11-10 20:04 | CONS ---
[facility] LIVE HCIS Consult Follow-up Patient Name: Armand Quiroga Unit Number: [id number] Date of : 1965 Patient Status: Admitted Inpatient Attending Doctor: Nola Vidal MD Edit: NEMO MARTINEZ M.D. on 11/11/18 @ 13:13 Roque: I discussed the management with IMAGING SYSTEM ADMINISTRATOR Anup and agree Assessment/Plan Assessment/Plan Hospital Course (Demo Recall) # sepsis, respiratory - worsening pneumonia per CXR 11/09/2018 - recurrent sepsis on 10/08/2018 due to aspiration pneumonia, HCAP, improved - possible aspiration pneumonia, recurrent pneumonia due to Citrobacter, improved - acute on chronic hypoxic and hypercarbic respiratory failure - persistent leukocytosis likely due to steroid margination - h/o tracheostomy on 08/26/2018 - h/o "Increased mild left apical pneumothorax" per CXR on 09/19/2018; no pneumothorax mentioned on subsequent CXR - h/o pneumomediastinum - h/o VAT on 08/11/2018 - h/o asthma/COPD exacerbation - h/o acute tracheobronchitis - h/o MAC infection but CT chest did not demonstrate features suggestive of this per chart review - h/o HCAP due to Citrobacter, based on resp culture on 09/13/2018 - h/o aspergillus in resp culture according to a note by Dr. Lopez, a woodworker at OSH on 07/25/2018 - h/o elevated 1,3 [id number] level = 232 on 08/06/2018 - h/o MSSA septicemia # GI - diarrhea, C diff on 10/09/2018 was negative. 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 x 21 days from 08/26/2018 - h/o EGD, esophageal biopsy showed esophageal squamous mucosa showing acute inflammation, granulation tissue, and ulceration consistent with ulcerative esophagitis, rare multinucleated cells with morphology suggestive of vial cytopathic changes, No cardiac mucosa, intestinal metaplasia, dysplasia, or malignancy defined - GERD - PUD # renal/ - Hypokalemia, recurrent - CKD 2 - BPH # cardiac - tachycardia, persistent - ACD - HTN # endo - T2DM - Hgb A1c 7.2% - secondary adrenal insufficiency; steroid dependent - HLD - Hypoparathyroidism - Hypercalcemia - Pamidronate was ordered # neuro - toxic metabolic encephalopathy - Cervical myopathy - Severe cervical spinal cord stenosis with cord compression from C3-C5, s/p laminectomy in ~03/2018 - Chronic pain syndrome - Functional quadriplegia - Seizure d/o # other chronic conditions - RA with chronic steroid dependence - Immunocompromised status - Fibromyalgia - DDD - H/o multiple rib fracture - Pt completed: meropenem (09/25/2018-10/02/2018), vancomycin (09/25/18-09/28/18), pip/tazo (10/09/2018-10/15/2018) - so far: pneumocystis antigen negative, AFB smear negative and final culture x3 pending, quantiferon TB gold negative, coccidioides serology negative Recommendations: - ordered sputum culture - start IV cefepime - continue Bactrim for pneumocystis PPX Management d/w MONOTYPE SETTERARIANNA Vicente and with Dr. Berkowitz Critical care time spent: 35 min Consultation Date/Type/Reason Admit Date/Time Oct 09, 2018 at 12:16 Initial Consult Date 10/12/18 Type of Consult Infectious Disease Requesting Provider: NOLA VIDAL MD Date/Time of Note DATE: 11/10/18 TIME: 20:03 24 HR Interval Summary Free Text/Dictation Chart reviewed: CXR worse, still on FiO2 70%, tolerating GT feeds at 40cc/hr, and still with diarrhea via Flexiseal. No acute issues per d/w MONOTYPE SETTER. Subjective hx not possible: pt non-verbal, pt critical status Exam/Review of Systems Exam Vitals Vital Signs Date Temp Pulse Resp B/P (MAP) Pulse Ox O2 O2 Flow FiO2 Time Delivery Rate 11/10/18 119 29 127/88 91 19:00 (101) 11/10/18 70 17:15 11/10/18 98.0 16:00 11/10/18 Mechanical 07:00 Ventilator Intake and Output 11/09/18 11/09/18 11/10/18 1515:00 23:00 07:00 IntakeIntake Total 730 ml 800 ml OutputOutput Total 470 ml 1155 ml 630 ml BalanceBalance -470 ml -425 ml 170 ml Constitutional: non-verbal, frail Head: normocephalic, atraumatic Eyes: nl conjunctiva, nl lids ENMT: nl external ears & nose, nl nasal mucosa & septum Neck: other (trach midline) Respiratory: crackles/rales Cardiovascular: other (regular rhythm, tachycardic 120's) Gastrointestinal: soft, non-tender, other (G-tube with TF in progress; Flexiseal with liquid brown stool) Genitourinary - Male: other (Condom catheter has slipped off, clear yellow urine noted in tubing -> RN notified) Extremities: other (bilateral foot drop); No edema Neurological: lethargic Skin: other (stage 2 back decub noted per chart review) Results Result Diagram: 11/10/18 0514 11/10/18 0514 Results 24hrs Laboratory Tests Test 11/09/18 20:26 11/10/18 01:16 11/10/18 05:14 11/10/18 09:37 Bedside Glucose 151 119 122 White Blood Count 12.9 H Red Blood Count 3.25 L Hemoglobin 9.4 L Hematocrit 30.6 L Mean Corpuscular 94.2 Volume Mean Corpuscular 28.9 L Hemoglobin Mean Corpuscular 30.7 L Hemoglobin Concent Red Cell 15.8 H Distribution Width Platelet Count 245 Mean Platelet Volume 11.0 H Immature 0.900 H Granulocytes % Neutrophils % 67.4 Lymphocytes % 7.6 L Monocytes % 6.9 Eosinophils % 16.6 H Basophils % 0.6 Nucleated Red Blood 0.0 Cells % Immature 0.110 H Granulocytes # Neutrophils # 8.7 H Lymphocytes # 1.0 Monocytes # 0.9 Eosinophils # 2.1 H Basophils # 0.1 Nucleated Red Blood 0.0 Cells # Sodium Level 139 Potassium Level 3.4 L Chloride Level 91 L Carbon Dioxide Level 39 H Anion Gap 9 Blood Urea Nitrogen 20 Creatinine 0.32 L Est Glomerular > 60 Filtrat Rate mL/min Glucose Level 107 Calcium Level 7.6 L Test 11/10/18 14:12 11/10/18 19:53 Bedside Glucose 119 122 Imaging Imaging CXR 11/09/2018: Worsening extensive bilateral upper lobe and lower lobe interstitial infiltrates. No other significant change. Medications Medication Current Medications Acetaminophen (Tylenol Liquid) 650 mg Q4H PRN GTB MILD PAIN(1-3)OR ELEVATED TEMP Last administered on 11/05/18 23:55; Admin Dose 650 MG; Start 10/09/18 at 14:00 Al Hydrox/Mg Hydrox/Simethicone (Mag-Al Plus) 15 ml Q6H PRN PO GASTROINTESTINAL UPSET Last administered on 10/17/18 13:18; Admin Dose 15 ML; Start 10/09/18 at 14:00 Eye Lubricant (Artificial Tears Oph) 1 drop Q6H PRN BOTH EYES DRY EYES Last administered on 11/03/18 09:33; Admin Dose 1 DROP; Start 10/09/18 at 14:00 Bisacodyl (Dulcolax Supp) 10 mg DAILY PRN [place] CONSTIPATION; Start 10/09/18 at 14:00 Clonidine (Catapres) 0.1 mg DAILY PRN GTB ELEVATED BLOOD PRESSURE; Start 10/09/18 at 14:00 Diltiazem HCl (Cardizem Iv) 5 mg Q4 PRN IV ELEVATED HEART RATE Last administered on 11/06/18 18:47; Admin Dose 5 MG; Start 10/09/18 at 14:00 Diphenhydramine HCl (Benadryl Liquid Cup) 25 mg Q6 PRN GTB ITCHING Last administered on 10/22/18 20:25; Admin Dose 25 MG; Start 10/09/18 at 14:00 Duloxetine HCl (Cymbalta) 30 mg DAILY PO Last administered on 11/10/18 09:46; Admin Dose 30 MG; Start 10/10/18 at 09:00 Gabapentin (Neurontin Liquid) 400 mg Q8 GTB Last administered on 11/10/18 14:13; Admin Dose 400 MG; Start 10/09/18 at 15:30 Hydralazine HCl (Apresoline) 10 mg Q4H PRN IV ELEVATED BLOOD PRESSURE; Start 10/09/18 at 14:00 Hydroxychloroquine Sulfate (Plaquenil) 200 mg BID PO Last administered on 11/10/18 09:46; Admin Dose 200 MG; Start 10/09/18 at 21:00 Diagnostic Test (Pha) (Accu-Chek) 1 ea 02 XX Last administered on 11/04/18 02:27; Admin Dose 1 EA; Start 10/10/18 at 02:00 Insulin Aspart (Novolog Insulin Pen) NOVOLOG *CUSTOM* ALGORITHM Q6H SC Last administered on 11/09/18 20:54; Admin Dose 1 UNIT; Start 10/09/18 at 14:00 Lactobacillus Acidophilus (Florajen3 Capsule) 1 each BID GTB Last administered on 11/10/18 09:46; Admin Dose 1 EACH; Start 10/09/18 at 21:00 Lansoprazole (Prevacid) 30 mg BID@,18 GTB Last administered on 11/10/18 18:08; Admin Dose 30 MG; Start 10/09/18 at 18:00 Levetiracetam (Keppra Liquid) 500 mg BID GTB Last administered on 11/10/18 09:45; Admin Dose 500 MG; Start 10/09/18 at 21:00 Magnesium Oxide (Mag-Ox 400) 400 mg BID GTB Last administered on 11/10/18 09:45; Admin Dose 400 MG; Start 10/09/18 at 21:00 Metoclopramide HCl (Reglan) 10 mg TID IV Last administered on 11/10/18 14:13; Admin Dose 10 MG; Start 10/09/18 at 21:00 Miconazole Nitrate (Miconazole 2% Cr) 1 applic BID TOP Last administered on 11/10/18 09:48; Admin Dose 1 APPLIC; Start 10/09/18 at 21:00 Miconazole Nitrate (Miconazole 2% Cr) 1 applic Q12 PRN TOP rash; Start 10/09/18 at 14:00 Ondansetron HCl (Zofran Inj) 4 mg Q4H PRN IV NAUSEA AND/OR VOMITING Last administered on 10/19/18 16:37; Admin Dose 4 MG; Start 10/09/18 at 14:00 Polyethylene Glycol (Miralax) 17 gm DAILY PRN GTB CONSTIPATION; Start 10/09/18 at 14:00 Senna (Senokot) 2 tab Q8 PRN PO CONSTIPATION; Start 10/09/18 at 14:00 Trimethoprim/ Sulfamethoxazole (Bactrim Susp) 40 ml DAILY GTB Last administered on 11/10/18 09:49; Admin Dose 40 ML; Start 10/10/18 at 09:00 Zolpidem Tartrate (Ambien) 5 mg HS PRN PO INSOMNIA Last administered on 11/03/18 01:16; Admin Dose 5 MG; Start 10/09/18 at 14:00 Miscellaneous Information 1 ea NOTE XX ; Start 10/09/18 at 15:00 Glucose (Glutose) 15 gm Q15M PRN PO DECREASED GLUCOSE; Start 10/09/18 at 15:00 Glucose (Glutose) 22.5 gm Q15M PRN PO DECREASED GLUCOSE; Start 10/09/18 at 15:00 Dextrose (D50w Syringe) 25 ml Q15M PRN IV DECREASED GLUCOSE; Start 10/09/18 at 15:00 Dextrose (D50w Syringe) 50 ml Q15M PRN IV DECREASED GLUCOSE; Start 10/09/18 at 15:00 Glucagon (Glucagen) 1 mg Q15M PRN IM DECREASED GLUCOSE; Start 10/09/18 at 15:00 Glucose (Glutose) 15 gm Q15M PRN BUCCAL DECREASED GLUCOSE; Start 10/09/18 at 15:00 Albuterol (Ventolin Hfa) 4 puff Q6H RESP THERAPY INH Last administered on 11/10/18 13:24; Admin Dose 4 PUFF; Start 10/10/18 at 02:00 Ipratropium [place] (Atrovent Hfa) 4 puff Q6H RESP THERAPY INH Last administered on 11/10/18 13:24; Admin Dose 4 PUFF; Start 10/10/18 at 02:00 Lorazepam (Ativan) 1 mg Q4H PRN GTB AGITATION/ANXIETY Last administered on 11/05/18 20:35; Admin Dose 1 MG; Start 10/14/18 at 13:00 Linagliptin (Tradjenta) 5 mg DAILY PO Last administered on 11/10/18 09:49; Admin Dose 5 MG; Start 10/16/18 at 10:30 Fentanyl (Duragesic 50 Mcg/Hr Patch) 1 patch Q72H TRANSDERM Last administered on 11/07/18 20:47; Admin Dose 1 PATCH; Start 10/17/18 at 20:30 Quetiapine Fumarate (Seroquel) 100 mg BID GTB Last administered on 11/10/18 09:46; Admin Dose 100 MG; Start 10/21/18 at 21:00 Hydromorphone HCl (Dilaudid) 6 mg Q4H PRN PO MODERATE PAIN LEVEL 7-10 Last administered on 11/10/18 12:40; Admin Dose 6 MG; Start 10/21/18 at 22:00 Calcium Carbonate (Ca Carbonate) 1,250 mg QID GTB Last administered on 11/10/18 18:08; Admin Dose 1,250 MG; Start 10/24/18 at 13:00 Metoprolol Tartrate (Lopressor) 5 mg Q4H PRN IV HR>110 Hold SBP<100 Last administered on 11/06/18 16:17; Admin Dose 5 MG; Start 10/28/18 at 12:30 Phenylephrine HCl 40 mg/Dextrose 250 ml @ 37.5 mls/hr TITRATE IV Last administered on 11/02/18 09:05; Admin Dose 11.25 MLS/HR; Start 11/01/18 at 13:30 IV Flush (NS 10 ml) 10 ml PRN PRN IV IV PROTOCOL; Start 11/01/18 at 16:30 Collagenase (Santyl) 1 applic DAILY TOP Last administered on 11/10/18 09:48; A dmin Dose 1 APPLIC; Start 11/01/18 at 19:30 Norepinephrine 32 mg/Dextrose 250 ml @ 0.47 mls/hr TITRATE IV Last administered on 11/02/18 12:15; Admin Dose 0.47 MLS/HR; Start 11/02/18 at 11:30 Midodrine (Proamatine) 5 mg TID@,13,17 GTB Last administered on 11/08/18 12:53; Admin Dose 5 MG; Start 11/03/18 at 09:00; Status Hold Guaifenesin (Robitussin Liquid Cup) 100 mg Q4H PRN PO COUGH Last administered on 11/05/18 20:31; Admin Dose 100 MG; Start 11/03/18 at 12:00 Hydrocortisone (Cortef) 20 mg QAM PEG Last administered on 11/10/18 09:46; Admin Dose 20 MG; Start 11/04/18 at 09:00 Hydrocortisone (Cortef) 20 mg AC DINNER PEG Last administered on 11/10/18 18:08; Admin Dose 20 MG; Start 11/04/18 at 17:05 Hydrocortisone (Cortef) 20 mg HS PEG Last administered on 11/09/18 20:27; Admi n Dose 20 MG; Start 11/03/18 at 22:45 Calcitriol (Rocaltrol) 1.5 mcg BID PO Last administered on 11/10/18 09:45; Admin Dose 1.5 MCG; Start 11/07/18 at 21:00 Lorazepam (Ativan) 1 mg Q4 GTB Last administered on 11/10/18 18:08; Admin Dose 1 MG; Start 11/09/18 at 14:00 Carvedilol (Coreg) 6.25 mg BID PO Last administered on 11/10/18 09:46; Admin Dose 6.25 MG; Start 11/09/18 at 21:00 Benazepril HCl (Lotensin) 10 mg DAILY PO Last administered on 11/10/18 09:47; Admin Dose 10 MG; Start 11/10/18 at 09:00 Digoxin (Digoxin) 0.25 mg DAILY@13 PO ; Start 11/11/18 at 13:00 Furosemide (Lasix) 20 mg DAILY IV Last administered on 11/10/18 12:48; Admin Dose 20 MG; Start 11/10/18 at 12:30 CATHERINE FISH NP Nov 10, 2018 20:04
[2018-11-10] MEDS: FENTAnyl PATCH 50 MCG/HR TRANSDERM SCH (20:30)
[2018-11-10] MEDS ORDERED: SOD CHLORIDE 0.9% 500 ML IV ONE (22:00)
[2018-11-10] MEDS ORDERED: NALOXONE (0.4 MG/ML) INJ IV ONE (22:00)
[2018-11-11] VITALS (38 sets, daily range): BP systolic 79–151; BP diastolic 53–108; PULSE 99–125; RESP 17–36
[2018-11-11] MEDS: CEFEPIME 1GM/50 ML (PMX) 50 ML IVPB SCH ×3 (00:22→20:26)
[2018-11-11] MEDS: LORAZEPAM 1 MG TAB GTB SCH ×6 (01:00→20:27)
[2018-11-11] MEDS: IPRATROPIUM (HFA) 12.9 GM INHALER INH SCH ×4 (01:10→20:24)
[2018-11-11] MEDS: ALBUTEROL HFA 8 GM INHALER INH SCH ×4 (01:10→20:24)
[2018-11-11] MEDS: INSULIN ASPART [NOVOLOG] 3 ML PEN SC SCH ×4 (01:50→19:58)
[2018-11-11] MEDS: ACCU-CHEK XX SCH (01:50)
[2018-11-11] MEDS: FENTAnyl PATCH 50 MCG/HR TRANSDERM SCH (04:38)
[2018-11-11] MEDS: GABAPENTIN (50 MG/ML PO SYG) GTB SCH ×3 (05:34→21:20)
[2018-11-11] MEDS: LANSOPRAZOLE 30 MG CAP GTB SCH ×2 (05:34→18:14)
[2018-11-11] MEDS: METOCLOPRAMIDE 10 MG INJ IV SCH ×3 (09:00→20:27)
--- NOTE | 2018-11-11 09:03 | PN ---
DATE: 11/11/2018 SUBJECTIVE: The patient remains on full ventilatory support. No acute events noted overnight. OBJECTIVE: VITAL SIGNS: Blood pressure is 151/108, respirations 17, pulse 117, temperature 98.0. HEENT: Head is normocephalic. NECK: Supple. HEART: Regular rate. LUNGS: Show diminished breath sounds at the base. ABDOMEN: Soft, nontender to palpation. No rebound or guarding. EXTREMITIES: Negative for clubbing, cyanosis, no edema. DERMATOLOGIC: No rashes. MUSCULOSKELETAL: No joint effusion. NEUROLOGIC: No change in exam. LABORATORY DATA: Reviewed. MEDICATIONS: Reviewed. IMAGING STUDIES: Reviewed. ASSESSMENT AND PLAN: 1. Nonoliguric acute kidney injury with previously normal baseline creatinine. Etiology of acute ki dney injury is secondary to hemodynamics. Renal function has improved. Continue to monitor closely on diuretic therapy. 2. Volume overload, improved. Continue low-dose diuretic therapy. 3. Ventilator dependent respiratory failure. Vent settings and ABG was reviewed. Continue to monit or. 4. Adrenal insufficiency. The patient remains on Cortef, continue. Followup with endocrinology. 5. Hypokalemia. Continue to monitor and replete. 6. Hypertension. Blood pressures have been labile, but improved, currently off midodrine. Continue to monitor. 7. Dysphagia, status post PEG. Continue tube feeding. 8. Seizure disorder. Continue medical management. 9. Hypomagnesemia. Continue to monitor and replete. 10. Mineral bone disorder. Monitor calcium and phosphorus levels. Continue vitamin D analogs. Con tinue calcium gluconate. 11. Status post shock. 12. Anxiety disorder. Dictated By: UNA ROY DO NR/NTS Conf#: [id number] DID#: [id number] CC: NOLA VIDAL MD; CAMELIA VALENTINE MD;*EndCC*
--- NOTE | 2018-11-11 09:12 | CONS ---
Assessment/Plan Assessment/Plan Assessment/Plan (Daily) Ventilator setting; AC of 20, pressure control, PEEP of 8, 70% FiO2. Assessment and recommendations; 1. Patient with history of ARDS and VDR F admitted for worsening hypoxemia from rehab center without any interval improvement with persistent severe hypoxemic and hypercapnic respiratory failure requiring pressure control mode of ventilation. 2. History of stable seizure disorder. 3. Status post treatment for pneumonia, patient resumed back on antibiotics. 4. History of HSV esophagitis. 5. History of anxiety and depression. 6. Peripheral neuropathy. 7. Anemia. 8. Incomplete quadriplegia. 9. History of aspergillosis. Continue current supportive care. Prognosis is very poor. Consider stopping antibiotics. Consultation Date/Type/Reason Admit Date/Time Oct 09, 2018 at 12:16 Initial Consult Date 10/12/18 Type of Consult Pulmonary/critical care Patient's condition is stable. Remains completely awake and alert. Has remained hemodynamically stable. Patient also has been switched over to volume control ventilation from pressure-controlled mode. General exam; middle-aged male, on ventilator via tracheostomy, awake and alert. Watching television. Currently in no distress. Area Requesting Provider: NOLA VIDAL MD Date/Time of Note DATE: 11/11/18 TIME: 09:10 24 HR Interval Summary Free Text/Dictation Patient's condition remains critical but stable. Still requiring pressure control mode of ventilation with high FiO2 and high PEEP. The patient has remained hemodynamically stable. General exam; middle-aged male, awake and alert. On ventilator via tracheostomy. Currently in no distress. Exam/Review of Systems Exam Vitals Vital Signs Date Temp Pulse Resp B/P (MAP) Pulse Ox O2 O2 Flow FiO2 Time Delivery Rate 11/11/18 100.6 125 30 91 08:30 11/11/18 144/93 [place] 08:00 (110) l Ventilato r 11/11/18 70 05:06 Intake and Output 11/10/18 11/10/18 11/11/18 1414:59 22:59 06:59 IntakeIntake Total 1520 ml 370 ml OutputOutput Total 350 ml 950 ml 550 ml BalanceBalance -350 ml 570 ml -180 ml Exam HEENT exam; supple neck, no JVD. No lymphadenopathy. Midline trachea. No thyr omegaly. Patient is edentulous. Tracheostomy in place. Chest exam; bilateral crackles. S1-S2 audible, no murmurs. Regular rhythm. Abdomen exam; soft, G-tube in place. Nontender. No organomegaly. Bowel sounds audible. Extremity exam; peripheral edema. STARS SPECIALIST exam; patient has stable incomplete quadriplegia. Results Result Diagram: 11/11/18 0400 11/11/18 0400 Results 24hrs Laboratory Tests Test 11/10/18 09:37 11/10/18 14:12 11/10/18 19:53 11/11/18 01:49 Bedside Glucose 122 119 122 145 Test 11/11/18 04:00 11/11/18 08:25 White Blood Count 13.4 H Red Blood Count 2.99 L Hemoglobin 8.6 L Hematocrit 28.3 L Mean Corpuscular 94.6 Volume Mean Corpuscular 28.8 L Hemoglobin Mean Corpuscular 30.4 L Hemoglobin Concent Red Cell 15.9 H Distribution Width Platelet Count 283 Mean Platelet Volume 11.1 H Immature 0.900 H Granulocytes % Neutrophils % 74.2 Lymphocytes % 5.2 L Monocytes % 6.5 Eosinophils % 12.5 H Basophils % 0.7 Nucleated Red Blood 0.0 Cells % Immature 0.120 H Granulocytes # Neutrophils # 9.9 H Lymphocytes # 0.7 L Monocytes # 0.9 Eosinophils # 1.7 H Basophils # 0.1 Nucleated Red Blood 0.0 Cells # Sodium Level 138 Potassium Level 3.7 Chloride Level 89 L Carbon Dioxide Level 41 *H Anion Gap 8 Blood Urea Nitrogen 21 H Creatinine 0.30 L Est Glomerular > 60 Filtrat Rate mL/min Glucose Level 125 Calcium Level 7.7 L Phosphorus Level 4.1 Magnesium Level 1.8 Bedside Glucose 114 Medications Medication Current Medications Acetaminophen (Tylenol Liquid) 650 mg Q4H PRN GTB MILD PAIN(1-3)OR ELEVATED TEMP Last administered on 11/05/18at 23:55; Admin Dose 650 MG; Start 10/09/18 at 14:00 Al Hydrox/Mg Hydrox/Simethicone (Mag-Al Plus) 15 ml Q6H PRN PO GASTROINTESTINAL UPSET Last administered on 10/17/18at 13:18; Admin Dose 15 ML; Start 10/09/18 at 14:00 Eye Lubricant (Artificial Tears Oph) 1 drop Q6H PRN BOTH EYES DRY EYES Last administered on 11/03/18 09:33; Admin Dose 1 DROP; Start 10/09/18 at 14:00 Bisacodyl (Dulcolax Supp) 10 mg DAILY PRN IN CONSTIPATION; Start 10/09/18 at 14:00 Clonidine (Catapres) 0.1 mg DAILY PRN GTB ELEVATED BLOOD PRESSURE; Start 10/09/18 at 14:00 Diltiazem HCl (Cardizem Iv) 5 mg Q4 PRN IV ELEVATED HEART RATE Last administered on 11/06/18 18:47; Admin Dose 5 MG; Start 10/09/18 at 14:00 Diphenhydramine HCl (Benadryl Liquid Cup) 25 mg Q6 PRN GTB ITCHING Last administered on 10/22/18 20:25; Admin Dose 25 MG; Start 10/09/18 at 14:00 Duloxetine HCl (Cymbalta) 30 mg DAILY PO Last administered on 11/10/18 09:46; Admin Dose 30 MG; Start 10/10/18 at 09:00 Gabapentin (Neurontin Liquid) 400 mg Q8 GTB Last administered on 11/11/18 05:34; Admin Dose 400 MG; Start 10/09/18 at 15:30 Hydralazine HCl (Apresoline) 10 mg Q4H PRN IV ELEVATED BLOOD PRESSURE; Start 10/09/18 at 14:00 Hydroxychloroquine Sulfate (Plaquenil) 200 mg BID PO Last administered on 11/10/18 20:09; Admin Dose 200 MG; Start 10/09/18 at 21:00 Diagnostic Test (Pha) (Accu-Chek) 1 ea 02 XX Last administered on 11/11/18 01:50; Admin Dose 1 EA; Start 10/10/18 at 02:00 Insulin Aspart (Novolog Insulin Pen) NOVOLOG *CUSTOM* ALGORITHM Q6H SC Last administered on 11/09/18 20:54; Admin Dose 1 UNIT; Start 10/09/18 at 14:00 Lactobacillus Acidophilus (Florajen3 Capsule) 1 each BID GTB Last administered on 11/10/18 20:09; Admin Dose 1 EACH; Start 10/09/18 at 21:00 Lansoprazole (Prevacid) 30 mg BID@06,18 GTB Last administered on 3/29/19at 05:34; Admin Dose 30 MG; Start 10/09/18 at 18:00 Levetiracetam (Keppra Liquid) 500 mg BID GTB Last administered on 11/10/18at 20:09; Admin Dose 500 MG; Start 10/09/18 at 21:00 Magnesium Oxide (Mag-Ox 400) 400 mg BID GTB Last administered on 11/10/18 20:09; Admin Dose 400 MG; Start 10/09/18 at 21:00 Metoclopramide HCl (Reglan) 10 mg TID IV Last administered on 11/10/18at 20:15; Admin Dose 10 MG; Start 10/09/18 at 21:00 Miconazole Nitrate (Miconazole 2% Cr) 1 applic BID TOP Last administered on 11/10/18at 20:10; Admin Dose 1 APPLIC; Start 10/09/18 at 21:00 Miconazole Nitrate (Miconazole 2% Cr) 1 applic Q12 PRN TOP rash; Start 10/09/18 at 14:00 Ondansetron HCl (Zofran Inj) 4 mg Q4H PRN IV NAUSEA AND/OR VOMITING Last administered on 10/19/18at 16:37; Admin Dose 4 MG; Start 10/09/18 at 14:00 Polyethylene Glycol (Miralax) 17 gm DAILY PRN GTB CONSTIPATION; Start 10/09/18 at 14:00 Senna (Senokot) 2 tab Q8 PRN PO CONSTIPATION; Start 10/09/18 at 14:00 Trimethoprim/ Sulfamethoxazole (Bactrim Susp) 40 ml DAILY GTB Last administered on 11/10/18at 09:49; Admin Dose 40 ML; Start 10/10/18 at 09:00 Zolpidem Tartrate (Ambien) 5 mg HS PRN PO INSOMNIA Last administered on 11/03/18at 01:16; Admin Dose 5 MG; Start 10/09/18 at 14:00 Miscellaneous Information 1 ea NOTE XX ; Start 10/09/18 at 15:00 Glucose (Glutose) 15 gm Q15M PRN PO DECREASED GLUCOSE; Start 10/09/18 at 15:00 Glucose (Glutose) 22.5 gm Q15M PRN PO DECREASED GLUCOSE; Start 10/09/18 at 15:00 Dextrose (D50w Syringe) 25 ml Q15M PRN IV DECREASED GLUCOSE; Start 10/09/18 at 15:00 Dextrose (D50w Syringe) 50 ml Q15M PRN IV DECREASED GLUCOSE; Start 10/09/18 at 15:00 Glucagon (Glucagen) 1 mg Q15M PRN IM DECREASED GLUCOSE; Start 10/09/18 at 15:00 Glucose (Glutose) 15 gm Q15M PRN BUCCAL DECREASED GLUCOSE; Start 10/09/18 at 15:00 Albuterol (Ventolin Hfa) 4 puff Q6H RESP THERAPY INH Last administered on 11/11/18 07:44; Admin Dose 4 PUFF; Start 10/10/18 at 02:00 Ipratropium [place] (Atrovent Hfa) 4 puff Q6H RESP THERAPY INH Last administered on 11/11/18 07:44; Admin Dose 4 PUFF; Start 10/10/18 at 02:00 Lorazepam (Ativan) 1 mg Q4H PRN GTB AGITATION/ANXIETY Last administered on 11/05/18 20:35; Admin Dose 1 MG; Start 10/14/18 at 13:00 Linagliptin (Tradjenta) 5 mg DAILY PO Last administered on 11/10/18 09:49; Admin Dose 5 MG; Start 10/16/18 at 10:30 Fentanyl (Duragesic 50 Mcg/Hr Patch) 1 patch Q72H TRANSDERM Last administered on 11/11/18 04:38; Admin Dose 1 PATCH; Start 10/17/18 at 20:30 Quetiapine Fumarate (Seroquel) 100 mg BID GTB Last administered on 11/10/18 20:10; Admin Dose 100 MG; Start 10/21/18 at 21:00 Calcium Carbonate (Ca Carbonate) 1,250 mg QID GTB Last administered on 11/10/18 20:09; Admin Dose 1,250 MG; Start 10/24/18 at 13:00 Metoprolol Tartrate (Lopressor) 5 mg Q4H PRN IV HR>110 Hold SBP<100 Last administered on 11/06/18 16:17; Admin Dose 5 MG; Start 10/28/18 at 12:30 Phenylephrine HCl 40 mg/Dextrose 250 ml @ 37.5 mls/hr TITRATE IV Last administered on 11/02/18 09:05; Admin Dose 11.25 MLS/HR; Start 11/01/18 at 13:30 IV Flush (NS 10 ml) 10 ml PRN PRN IV IV PROTOCOL; Start 11/01/18 at 16:30 Collagenase (Santyl) 1 applic DAILY TOP Last administered on 11/10/18 09:48; Admin Dose 1 APPLIC; Start 11/01/18 at 19:30 Norepinephrine 32 mg/Dextrose 250 ml @ 0.47 mls/hr TITRATE IV Last administered on 11/02/18 12:15; Admin Dose 0.47 MLS/HR; Start 11/02/18 at 11:30 Midodrine (Proamatine) 5 mg TID@09,13,17 GTB Last administered on 11/08/18 12:53; Admin Dose 5 MG; Start 11/03/18 at 09:00; Status Hold Guaifenesin (Robitussin Liquid Cup) 100 mg Q4H PRN PO COUGH Last administered on 11/05/18 20:31; Admin Dose 100 MG; Start 11/03/18 at 12:00 Hydrocortisone (Cortef) 20 mg QAM PEG Last administered on 11/10/18 09:46; Admin Dose 20 MG; Start 11/04/18 at 09:00 Hydrocortisone (Cortef) 20 mg AC DINNER PEG Last administered on 11/10/18 18:08; Admin Dose 20 MG; Start 11/04/18 at 17:05 Hydrocortisone (Cortef) 20 mg HS PEG Last administered on 11/10/18 20:09; Admin Dose 20 MG; Start 11/03/18 at 22:45 Calcitriol (Rocaltrol) 1.5 mcg BID PO Last administered on 11/10/18 20:09; Admin Dose 1.5 MCG; Start 11/07/18 at 21:00 Lorazepam (Ativan) 1 mg Q4 GTB Last administered on 11/11/18 05:34; Admin Dose 1 MG; Start 11/09/18 at 14:00 Carvedilol (Coreg) 6.25 mg BID PO Last administered on 11/10/18 20:09; Admin Dose 6.25 MG; Start 11/09/18 at 21:00 Benazepril HCl (Lotensin) 10 mg DAILY PO Last administered on 11/10/18 09:47; Admin Dose 10 MG; Start 11/10/18 at 09:00 Digoxin (Digoxin) 0.25 mg DAILY@13 PO ; Start 11/11/18 at 13:00 Furosemide (Lasix) 20 mg DAILY IV Last administered on 11/10/18at 12:48; Admin Dose 20 MG; Start 11/10/18 at 12:30 Hydromorphone HCl (Dilaudid) 3 mg Q4H PRN PO MODERATE PAIN LEVEL 7-10; Start 11/10/18 at 22:00 Cefepime HCl 50 ml @ 100 mls/hr Q12 IVPB Last administered on 11/11/18at 00:22; Admin Dose 100 MLS/HR; Start 11/10/18 at 23:30 PILAR BERGER Nov 11, 2018 09:12
[2018-11-11] MEDS: TRIMETHOPRIM/SULFAMETHOX (PO SYG) GTB SCH (09:56)
[2018-11-11] MEDS: CA CARBONATE (250 MG/ML) 5ML CUP GTB SCH ×4 (09:56→20:27)
[2018-11-11] MEDS: L ACIDOPHIL/B LACTIS/B LONGUM CAPSULE GTB SCH ×2 (09:56→20:30)
[2018-11-11] MEDS: LEVETIRACETAM (100 MG/ML) 5ML CUP GTB SCH ×2 (09:57→20:27)
[2018-11-11] MEDS: MAGNESIUM OXIDE 400 MG TAB GTB SCH ×2 (09:57→20:27)
[2018-11-11] MEDS: QUETIAPINE 100 MG TAB GTB SCH ×2 (09:57→20:27)
[2018-11-11] MEDS: FUROSEMIDE 20 MG INJ IV SCH (09:58)
[2018-11-11] MEDS: HYDROCORTISONE 20 MG TAB PEG SCH ×3 (09:58→20:28)
[2018-11-11] MEDS: BENAZEPRIL 10 MG TAB PO SCH (09:59)
[2018-11-11] MEDS: DULOXETINE 30 MG CAP DR PO SCH (09:59)
[2018-11-11] MEDS: HYDROXYCHLOROQUINE 200 MG TAB PO SCH ×2 (10:00→20:28)
[2018-11-11] MEDS: COLLAGENASE 5 GM (UD JAR) TOP SCH (10:00)
[2018-11-11] MEDS: CALCITRIOL 0.5 MCG CAPSULE PO SCH ×2 (10:00→20:27)
[2018-11-11] MEDS: LINAGLIPTIN 5 MG TABLET PO SCH (10:01)
[2018-11-11] MEDS: MICONAZOLE 2% 30 GM CR TOP SCH ×2 (10:02→20:28)
[2018-11-11] MEDS: BALSAM PERU/CASTOR OIL 60 GM TUBE TOP SCH ×2 (10:02→20:28)
[2018-11-11] MEDS: HYDROmorphONE 2 MG TAB PO PRN ×2 (10:02→21:37)
--- NOTE | 2018-11-11 12:39 | CONS ---
Assessment/Plan Cardiology Heart Failure Type: Acute on Chronic Heart Failure Type: Systolic Assessment/Plan Hospital Course (Demo Recall) IMPRESSION: 1. Tachycardia- S tach. Ongoimg Likley due to anxiety/infection/cardiomyopathy, multifactorial 2. Hypotension-now off pressors with HTN but labile 3. Abnormal electrocardiogram at baseline. 4. Chronic respiratory failure, status post tracheostomy.-weaning vent support 5. Dysphagia, status post G-tube. 6. Quadriplegia. 7. Renal insufficiency, on steroids. 8. Chronic obstructive pulmonary disease. 9. Rheumatoid arthritis. 10. Chronic kidney disease. 11. Diabetes mellitus. 12.Adrenal insufficiency 14. cardiomyopathy-EF 35-40% by echo this admit Recc -ICU -Ongoing Vent support with inability to wean from High percentage FI02 -Continue abx's and f/u cx data -continue steroids -Follow volume status -Continue coreg and ACEI as tolerated -Continue now po digoxin and follow HR closely -Contineu gentle lasix diuresis -Now DNR Consultation Date/Type/Reason Admit Date/Time Oct 09, 2018 at 12:16 Initial Consult Date 10/09/18 Type of Consult Cardiology Reason for Consultation cardiomyopathy Requesting Provider: NOLA VIDAL MD Date/Time of Note DATE: 11/11/18 TIME: 12:35 Exam/Review of Systems Vital Signs Vitals Vital Signs Date Temp Pulse Resp B/P (MAP) Pulse Ox O2 O2 Flow FiO2 Time Delivery Rate 11/11/18 110 25 89 70 11:10 11/11/18 105/78 11:00 (87) 11/11/18 99.2 11:00 11/11/18 Mechanical 10:00 Ventilator Intake and Output 11/10/18 11/10/18 11/11/18 1515:00 23:00 07:00 IntakeIntake Total 1560 ml 370 ml OutputOutput Total 350 ml 1000 ml 500 ml BalanceBalance -350 ml 560 ml -130 ml Exam Exam Review of Systems: CONSTITUTIONAL: No fevers, chills. PULMONARY: No sob CARDIOVASCULAR: No chest pain/palpitations GASTROINTESTINAL: No nausea/vomiting. GENITOURINARY: No hematuria/dysuria. MUSCULOSKELETAL: No myagias/arthalgias. PSYCHIATRIC: The patient denies depression. NEUROLOGIC: lethargic Constitutional: alert Psych: no complaints Head: normocephalic ENMT: mucosa pink and moist Neck: supple, jvd (9 cm water ) Respiratory: diminished breath sounds Cardiovascular: regular rate and rhythm Gastrointestinal: soft, non-tender Musculoskeletal: muscle tone (normal) Extremities: edema (none) Neurological: focal weakness Labs Result Diagram: 11/11/18 0400 11/11/18 0400 Results 24hrs Laboratory Tests Test 11/10/18 14:12 11/10/18 19:53 11/11/18 01:49 11/11/18 04:00 Bedside Glucose 119 122 145 White Blood Count 13.4 H Red Blood Count 2.99 L Hemoglobin 8.6 L Hematocrit 28.3 L Mean Corpuscular 94.6 Volume Mean Corpuscular 28.8 L Hemoglobin Mean Corpuscular 30.4 L Hemoglobin Concent Red Cell 15.9 H Distribution Width Platelet Count 283 Mean Platelet Volume 11.1 H Immature 0.900 H Granulocytes % Neutrophils % 74.2 Lymphocytes % 5.2 L Monocytes % 6.5 Eosinophils % 12.5 H Basophils % 0.7 Nucleated Red Blood 0.0 Cells % Immature 0.120 H Granulocytes # Neutrophils # 9.9 H Lymphocytes # 0.7 L Monocytes # 0.9 Eosinophils # 1.7 H Basophils # 0.1 Nucleated Red Blood 0.0 Cells # Sodium Level 138 Potassium Level 3.7 Chloride Level 89 L Carbon Dioxide Level 41 *H Anion Gap 8 Blood Urea Nitrogen 21 H Creatinine 0.30 L Est Glomerular > 60 Filtrat Rate mL/min Glucose Level 125 Calcium Level 7.7 L Phosphorus Level 4.1 Magnesium Level 1.8 Test 11/11/18 08:25 Bedside Glucose 114 Medications Medications Current Medications Acetaminophen (Tylenol Liquid) 650 mg Q4H PRN GTB MILD PAIN(1-3)OR ELEVATED TEMP Last administered on 11/05/18at 23:55; Admin Dose 650 MG; Start 10/09/18 at 14:00 Al Hydrox/Mg Hydrox/Simethicone (Mag-Al Plus) 15 ml Q6H PRN PO GASTROINTESTINAL UPSET Last administered on 10/17/18at 13:18; Admin Dose 15 ML; Start 10/09/18 at 14:00 Eye Lubricant (Artificial Tears Oph) 1 drop Q6H PRN BOTH EYES DRY EYES Last administered on 11/03/18at 09:33; Admin Dose 1 DROP; Start 10/09/18 at 14:00 Bisacodyl (Dulcolax Supp) 10 mg DAILY PRN [place] CONSTIPATION; Start 10/09/18 at 14:00 Clonidine (Catapres) 0.1 mg DAILY PRN GTB ELEVATED BLOOD PRESSURE; Start 10/09/18 at 14:00 Diltiazem HCl (Cardizem Iv) 5 mg Q4 PRN IV ELEVATED HEART RATE Last administered on 11/06/18 18:47; Admin Dose 5 MG; Start 10/09/18 at 14:00 Diphenhydramine HCl (Benadryl Liquid Cup) 25 mg Q6 PRN GTB ITCHING Last adm inistered on 10/22/18 20:25; Admin Dose 25 MG; Start 10/09/18 at 14:00 Duloxetine HCl (Cymbalta) 30 mg DAILY PO Last administered on 11/11/18 09:59; Admin Dose 30 MG; Start 10/10/18 at 09:00 Gabapentin (Neurontin Liquid) 400 mg Q8 GTB Last administered on 11/11/18 05:34; Admin Dose 400 MG; Start 10/09/18 at 15:30 Hydralazine HCl (Apresoline) 10 mg Q4H PRN IV ELEVATED BLOOD PRESSURE; Start 10/09/18 at 14:00 Hydroxychloroquine Sulfate (Plaquenil) 200 mg BID PO Last administered on 11/11/18 10:00; Admin Dose 200 MG; Start 10/09/18 at 21:00 Diagnostic Test (Pha) (Accu-Chek) 1 ea 02 XX Last administered on 11/11/18 01:50; Admin Dose 1 EA; Start 10/10/18 at 02:00 Insulin Aspart (Novolog Insulin Pen) NOVOLOG *CUSTOM* ALGORITHM Q6H SC Last administered on 11/09/18 20:54; Admin Dose 1 UNIT; Start 10/09/18 at 14:00 Lactobacillus Acidophilus (Florajen3 Capsule) 1 each BID GTB Last administered on 11/11/18 09:56; Admin Dose 1 EACH; Start 10/09/18 at 21:00 Lansoprazole (Prevacid) 30 mg BID@06,18 GTB Last administered on 11/11/18 05:34; Admin Dose 30 MG; Start 10/09/18 at 18:00 Levetiracetam (Keppra Liquid) 500 mg BID GTB Last administered on 11/11/18at 09:57; Admin Dose 500 MG; Start 10/09/18 at 21:00 Magnesium Oxide (Mag-Ox 400) 400 mg BID GTB Last administered on 11/11/18at 0 9:57; Admin Dose 400 MG; Start 10/09/18 at 21:00 Metoclopramide HCl (Reglan) 10 mg TID IV Last administered on 11/10/18at 20:15; Admin Dose 10 MG; Start 10/09/18 at 21:00 Miconazole Nitrate (Miconazole 2% Cr) 1 applic BID TOP Last administered on 11/11/18at 10:02; Admin Dose 1 APPLIC; Start 10/09/18 at 21:00 Miconazole Nitrate (Miconazole 2% Cr) 1 applic Q12 PRN TOP rash; Start 10/09/18 at 14:00 Ondansetron HCl (Zofran Inj) 4 mg Q4H PRN IV NAUSEA AND/OR VOMITING Last administered on 10/19/18at 16:37; Admin Dose 4 MG; Start 10/09/18 at 14:00 Polyethylene Glycol (Miralax) 17 gm DAILY PRN GTB CONSTIPATION; Start 10/09/18 at 14:00 Senna (Senokot) 2 tab Q8 PRN PO CONSTIPATION; Start 10/09/18 at 14:00 Trimethoprim/ Sulfamethoxazole (Bactrim Susp) 40 ml DAILY GTB Last administered on 11/11/18at 09:56; Admin Dose 40 ML; Start 10/10/18 at 09:00 Zolpidem Tartrate (Ambien) 5 mg HS PRN PO INSOMNIA Last administered on 11/03/18at 01:16; Admin Dose 5 MG; Start 10/09/18 at 14:00 Miscellaneous Information 1 ea NOTE XX ; Start 10/09/18 at 15:00 Glucose (Glutose) 15 gm Q15M PRN PO DECREASED GLUCOSE; Start 10/09/18 at 15:00 Glucose (Glutose) 22.5 gm Q15M PRN PO DECREASED GLUCOSE; Start 10/09/18 at 15:00 Dextrose (D50w Syringe) 25 ml Q15M PRN IV DECREASED GLUCOSE; Start 10/09/18 at 15:00 Dextrose (D50w Syringe) 50 ml Q15M PRN IV DECREASED GLUCOSE; Start 10/09/18 at 15:00 Glucagon (Glucagen) 1 mg Q15M PRN IM DECREASED GLUCOSE; Start 10/09/18 at 15:00 Glucose (Glutose) 15 gm Q15M PRN BUCCAL DECREASED GLUCOSE; Start 10/09/18 at 15:00 Albuterol (Ventolin Hfa) 4 puff Q6H RESP THERAPY INH Last administered on 11/11/18 07:44; Admin Dose 4 PUFF; Start 10/10/18 at 02:00 Ipratropium [place] (Atrovent Hfa) 4 puff Q6H RESP THERAPY INH Last administered on 11/11/18 07:44; Admin Dose 4 PUFF; Start 10/10/18 at 02:00 Lorazepam (Ativan) 1 mg Q4H PRN GTB AGITATION/ANXIETY Last administered on 11/05/18 20:35; Admin Dose 1 MG; Start 10/14/18 at 13:00 Linagliptin (Tradjenta) 5 mg DAILY PO Last administered on 11/11/18 10:01; Admin Dose 5 MG; Start 10/16/18 at 10:30 Fentanyl (Duragesic 50 Mcg/Hr Patch) 1 patch Q72H TRANSDERM Last administered on 11/11/18 04:38; Admin Dose 1 PATCH; Start 10/17/18 at 20:30 Quetiapine Fumarate (Seroquel) 100 mg BID GTB Last administered on 11/11/18 09:57; Admin Dose 100 MG; Start 10/21/18 at 21:00 Calcium Carbonate (Ca Carbonate) 1,250 mg QID GTB Last administered on 11/11/18 09:56; Admin Dose 1,250 MG; Start 10/24/18 at 13:00 Metoprolol Tartrate (Lopressor) 5 mg Q4H PRN IV HR>110 Hold SBP<100 Last administered on 11/06/18 16:17; Admin Dose 5 MG; Start 10/28/18 at 12:30 Phenylephrine HCl 40 mg/Dextrose 250 ml @ 37.5 mls/hr TITRATE IV Last administered on 11/02/18 09:05; Admin Dose 11.25 MLS/HR; Start 11/01/18 at 13:30 IV Flush (NS 10 ml) 10 ml PRN PRN IV IV PROTOCOL; Start 11/01/18 at 16:30 Collagenase (Santyl) 1 applic DAILY TOP Last administered on 11/10/18 09:48; Admin Dose 1 APPLIC; Start 11/01/18 at 19:30 Norepinephrine 32 mg/Dextrose 250 ml @ 0.47 mls/hr TITRATE IV Last administered on 11/02/18 12:15; Admin Dose 0.47 MLS/HR; Start 11/02/18 at 11:30 Midodrine (Proamatine) 5 mg TID@09,13,17 GTB Last administered on 11/08/18 12:53; Admin Dose 5 MG; Start 11/03/18 at 09:00; Status Hold Guaifenesin (Robitussin Liquid Cup) 100 mg Q4H PRN PO COUGH Last administered on 11/05/18 20:31; Admin Dose 100 MG; Start 11/03/18 at 12:00 Hydrocortisone (Cortef) 20 mg QAM PEG Last administered on 11/11/18 09:58; Admin Dose 20 MG; Start 11/04/18 at 09:00 Hydrocortisone (Cortef) 20 mg AC DINNER PEG Last administered on 11/10/18 18:08; Admin Dose 20 MG; Start 11/04/18 at 17:05 Hydrocortisone (Cortef) 20 mg HS PEG Last administered on 11/10/18 20:09; Admin Dose 20 MG; Start 11/03/18 at 22:45 Calcitriol (Rocaltrol) 1.5 mcg BID PO Last administered on 11/11/18 10:00; Admin Dose 1.5 MCG; Start 11/07/18 at 21:00 Lorazepam (Ativan) 1 mg Q4 GTB Last administered on 11/11/18 09:56; Admin Dose 1 MG; Start 11/09/18 at 14:00 Carvedilol (Coreg) 6.25 mg BID PO Last administered on 11/11/18 09:59; Admin Dose 6.25 MG; Start 11/09/18 at 21:00 Benazepril HCl (Lotensin) 10 mg DAILY PO Last administered on 11/11/18 09:59; Admin Dose 10 MG; Start 11/10/18 at 09:00 Digoxin (Digoxin) 0.25 mg DAILY@13 PO ; Start 11/11/18 at 13:00 Furosemide (Lasix) 20 mg DAILY IV Last administered on 11/11/18at 09:58; Admin Dose 20 MG; Start 11/10/18 at 12:30 Hydromorphone HCl (Dilaudid) 3 mg Q4H PRN PO MODERATE PAIN LEVEL 7-10 Last administered on 11/11/18at 10:02; Admin Dose 3 MG; Start 11/10/18 at 22:00 Cefepime HCl 50 ml @ 100 mls/hr Q12 IVPB Last administered on 11/11/18at 09:55; Admin Dose 100 MLS/HR; Start 11/10/18 at 23:30 BRISA HAQUE Nov 11, 2018 12:39
--- NOTE | 2018-11-11 13:09 | CONS ---
Assessment/Plan Assessment/Plan Hospital Course (Demo Recall) # sepsis, respiratory - recurrent sepsis on 10/08/2018 due to aspiration pneumonia, HCAP - s/p possible aspiration pneumonia, recurrent pneumonia due to citrobacter - acute on chronic hypoxic and hypercarbic respiratory failure - persistent leukocytosis likely due to steroid margination - h/o tracheostomy on 08/26/2018 - h/o "Increased mild left apical pneumothorax" per CXR on 09/19/2018; no pne umothorax mentioned on subsequent CXR - h/o pneumomediastinum - h/o VAT on 08/11/2018 - h/o asthma/COPD exacerbation - h/o acute tracheobronchitis - h/o MAC infection but CT chest did not demonstrate features suggestive of this per chart review - h/o HCAP due to citrobacter, based on resp culture on 09/13/2018 - h/o aspergillus in resp culture according to a note by Dr. Lopez, a pulmonlogist at [facility]SH on 07/25/2018 - h/o elevated 1,3 [id number] level = 232 on 08/06/2018 - h/o MSSA septicemia # GI - diarrhea, C diff on 10/09/2018 was negative. 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 x 21 days from 08/26/2018 - h/o EGD, esophageal biopsy showed esophageal squamous mucosa showing acute inflammation, granulation tissue, and ulceration consistent with ulcerative eso phagitis, rare multinucleated cells with morphology suggestive of vial cytopathic changes, No cardiac mucosa, intestinal metaplasia, dysplasia, or malignancy defined - GERD - PUD # renal/ - Hypokalemia, recurrent - CKD 2 - BPH # cardiac - tachycardia, persistent - ACD - HTN # endo - T2DM - Hgb A1c 7.2% - secondary adrenal insufficiency; steroid dependent - HLD - Hypoparathyroidism - Hypercalcemia - Pamidronate was ordered # neuro - toxic metabolic encephalopathy - Cervical myopathy - Severe cervical spinal cord stenosis with cord compression from C3-C5, s/p laminectomy in ~03/2018 - Chronic pain syndrome - Functional quadriplegia - Seizure d/o # other chronic conditions - RA with chronic steroid dependence - Immunocompromised status - Fibromyalgia - DDD - H/o multiple rib fracture - Pt completed: meropenem (09/25/2018-10/02/2018), vancomycin (09/25/18-09/28/18), pip/tazo (10/09/2018-10/15/2018) - so far: pneumocystis antigen negative, AFB smear negative and final culture x3 pending, quantiferon TB gold negative, coccidioides serology negative recommendations - pending results: culture of tracheal aspirate - continue cefepime (restarted 11/10/2018-) empirically - continue Bactrim for pneumocystis PPX the critical care time I took to care for this Pt today was from 1215 to 1245 Consultation Date/Type/Reason Admit Date/Time Oct 09, 2018 at 12:16 Initial Consult Date 10/09/18 Type of Consult ID Requesting Provider: NOLA VIDAL MD Date/Time of Note DATE: 11/11/18 TIME: 13:06 24 HR Interval Summary Subjective hx not possible: pt non-verbal (nearly, debilitated) Exam/Review of Systems Exam Vitals Vital Signs Date Temp Pulse Resp B/P (MAP) Pulse Ox O2 O2 Flow FiO2 Time Delivery Rate 11/11/18 106 12:00 11/11/18 25 89 70 11:10 11/11/18 105/78 11:00 (87) 11/11/18 99.2 11:00 11/11/18 Mechanical 10:00 Ventilator Intake and Output 11/10/18 11/10/18 11/11/18 1515:00 23:00 07:00 IntakeIntake Total 1560 ml 370 ml OutputOutput Total 350 ml 1000 ml 500 ml BalanceBalance -350 ml 560 ml -130 ml Constitutional: non-verbal, frail Psych: confusion Head: normocephalic, atraumatic Eyes: nl conjunctiva, nl lids, nl sclera ENMT: nl external ears & nose, nl nasal mucosa & septum Neck: other (trach) Respiratory: crackles/rales Cardiovascular: other (tachycardic and regular) Gastrointestinal: soft, non-tender, other (GT RT) Genitourinary - Male: other (FC) Musculoskeletal: nl extremities to inspection Extremities: edema, pitting pedal edema Neurological: confused, lethargic Skin: rash or lesions (stage II on the back) Results Result Diagram: 11/11/18 0400 11/11/18 0400 Results 24hrs Laboratory Tests Test 11/10/18 14:12 11/10/18 19:53 11/11/18 01:49 11/11/18 04:00 Bedside Glucose 119 122 145 White Blood Count 13.4 H Red Blood Count 2.99 L Hemoglobin 8.6 L Hematocrit 28.3 L Mean Corpuscular 94.6 Volume Mean Corpuscular 28.8 L Hemoglobin Mean Corpuscular 30.4 L Hemoglobin Concent Red Cell 15.9 H Distribution Width Platelet Count 283 Mean Platelet Volume 11.1 H Immature 0.900 H Granulocytes % Neutrophils % 74.2 Lymphocytes % 5.2 L Monocytes % 6.5 Eosinophils % 12.5 H Basophils % 0.7 Nucleated Red Blood 0.0 Cells % Immature 0.120 H Granulocytes # Neutrophils # 9.9 H Lymphocytes # 0.7 L Monocytes # 0.9 Eosinophils # 1.7 H Basophils # 0.1 Nucleated Red Blood 0.0 Cells # Sodium Level 138 Potassium Level 3.7 Chloride Level 89 L Carbon Dioxide Level 41 *H Anion Gap 8 Blood Urea Nitrogen 21 H Creatinine 0.30 L Est Glomerular > 60 Filtrat Rate mL/min Glucose Level 125 Calcium Level 7.7 L Phosphorus Level 4.1 Magnesium Level 1.8 Test 11/11/18 08:25 Bedside Glucose 114 Medications Medication Current Medications Acetaminophen (Tylenol Liquid) 650 mg Q4H PRN GTB MILD PAIN(1-3)OR ELEVATED TEMP Last administered on 11/05/18at 23:55; Admin Dose 650 MG; Start 10/09/18 at 14:00 Al Hydrox/Mg Hydrox/Simethicone (Mag-Al Plus) 15 ml Q6H PRN PO GASTROINTESTINAL UPSET Last administered on 10/17/18at 13:18; Admin Dose 15 ML; Start 10/09/18 at 14:00 Eye Lubricant (Artificial Tears Oph) 1 drop Q6H PRN BOTH EYES DRY EYES Last administered on 11/03/18at 09:33; Admin Dose 1 DROP; Start 10/09/18 at 14:00 Bisacodyl (Dulcolax Supp) 10 mg DAILY PRN [place] CONSTIPATION; Start 10/09/18 at 14:00 Clonidine (Catapres) 0.1 mg DAILY PRN GTB ELEVATED BLOOD PRESSURE; Start 10/09/18 at 14:00 Diltiazem HCl (Cardizem Iv) 5 mg Q4 PRN IV ELEVATED HEART RATE Last administered on 11/06/18 18:47; Admin Dose 5 MG; Start 10/09/18 at 14:00 Diphenhydramine HCl (Benadryl Liquid Cup) 25 mg Q6 PRN GTB ITCHING Last administered on 10/22/18 20:25; Admin Dose 25 MG; Start 10/09/18 at 14:00 Duloxetine HCl (Cymbalta) 30 mg DAILY PO Last administered on 11/11/18 09:59; Admin Dose 30 MG; Start 10/10/18 at 09:00 Gabapentin (Neurontin Liquid) 400 mg Q8 GTB Last administered on 11/11/18 05:34; Admin Dose 400 MG; Start 10/09/18 at 15:30 Hydralazine HCl (Apresoline) 10 mg Q4H PRN IV ELEVATED BLOOD PRESSURE; Start 10/09/18 at 14:00 Hydroxychloroquine Sulfate (Plaquenil) 200 mg BID PO Last administered on 11/11/18 10:00; Admin Dose 200 MG; Start 10/09/18 at 21:00 Diagnostic Test (Pha) (Accu-Chek) 1 ea 02 XX Last administered on 11/11/18 01:50; Admin Dose 1 EA; Start 10/10/18 at 02:00 Insulin Aspart (Novolog Insulin Pen) NOVOLOG *CUSTOM* ALGORITHM Q6H SC Last administered on 11/09/18 20:54; Admin Dose 1 UNIT; Start 10/09/18 at 14:00 Lactobacillus Acidophilus (Florajen3 Capsule) 1 each BID GTB Last administered on 11/11/18 09:56; Admin Dose 1 EACH; Start 10/09/18 at 21:00 Lansoprazole (Prevacid) 30 mg BID@,18 GTB Last administered on 11/11/18 05:34; Admin Dose 30 MG; Start 10/09/18 at 18:00 Levetiracetam (Keppra Liquid) 500 mg BID GTB Last administered on 11/11/18 09:57; Admin Dose 500 MG; Start 10/09/18 at 21:00 Magnesium Oxide (Mag-Ox 400) 400 mg BID GTB Last administered on 11/11/18 09:57; Admin Dose 400 MG; Start 10/09/18 at 21:00 Metoclopramide HCl (Reglan) 10 mg TID IV Last administered on 11/10/18at 20:15; Admin Dose 10 MG; Start 10/09/18 at 21:00 Miconazole Nitrate (Miconazole 2% Cr) 1 applic BID TOP Last administered on 11/11/18at 10:02; Admin Dose 1 APPLIC; Start 10/09/18 at 21:00 Miconazole Nitrate (Miconazole 2% Cr) 1 applic Q12 PRN TOP rash; Start 10/09/18 at 14:00 Ondansetron HCl (Zofran Inj) 4 mg Q4H PRN IV NAUSEA AND/OR VOMITING Last administered on 10/19/18at 16:37; Admin Dose 4 MG; Start 10/09/18 at 14:00 Polyethylene Glycol (Miralax) 17 gm DAILY PRN GTB CONSTIPATION; Start 10/09/18 at 14:00 Senna (Senokot) 2 tab Q8 PRN PO CONSTIPATION; Start 10/09/18 at 14:00 Trimethoprim/ Sulfamethoxazole (Bactrim Susp) 40 ml DAILY GTB Last administered on 11/11/18at 09:56; Admin Dose 40 ML; Start 10/10/18 at 09:00 Zolpidem Tartrate (Ambien) 5 mg HS PRN PO INSOMNIA Last administered on 11/03/18at 01:16; Admin Dose 5 MG; Start 10/09/18 at 14:00 Miscellaneous Information 1 ea NOTE XX ; Start 10/09/18 at 15:00 Glucose (Glutose) 15 gm Q15M PRN PO DECREASED GLUCOSE; Start 10/09/18 at 15:00 Glucose (Glutose) 22.5 gm Q15M PRN PO DECREASED GLUCOSE; Start 10/09/18 at 15:00 Dextrose (D50w Syringe) 25 ml Q15M PRN IV DECREASED GLUCOSE; Start 10/09/18 at 15:00 Dextrose (D50w Syringe) 50 ml Q15M PRN IV DECREASED GLUCOSE; Start 10/09/18 at 15:00 Glucagon (Glucagen) 1 mg Q15M PRN IM DECREASED GLUCOSE; Start 10/09/18 at 15:00 Glucose (Glutose) 15 gm Q15M PRN BUCCAL DECREASED GLUCOSE; Start 10/09/18 at 15:00 Albuterol (Ventolin Hfa) 4 puff Q6H RESP THERAPY INH Last administered on 11/11/18 07:44; Admin Dose 4 PUFF; Start 10/10/18 at 02:00 Ipratropium [place] (Atrovent Hfa) 4 puff Q6H RESP THERAPY INH Last administered on 11/11/18 07:44; Admin Dose 4 PUFF; Start 10/10/18 at 02:00 Lorazepam (Ativan) 1 mg Q4H PRN GTB AGITATION/ANXIETY Last administered on 11/05/18 20:35; Admin Dose 1 MG; Start 10/14/18 at 13:00 Linagliptin (Tradjenta) 5 mg DAILY PO Last administered on 11/11/18 10:01; Admin Dose 5 MG; Start 10/16/18 at 10:30 Fentanyl (Duragesic 50 Mcg/Hr Patch) 1 patch Q72H TRANSDERM Last administered on 11/11/18 04:38; Admin Dose 1 PATCH; Start 10/17/18 at 20:30 Quetiapine Fumarate (Seroquel) 100 mg BID GTB Last administered on 11/11/18 09:57; Admin Dose 100 MG; Start 10/21/18 at 21:00 Calcium Carbonate (Ca Carbonate) 1,250 mg QID GTB Last administered on 11/11/18 09:56; Admin Dose 1,250 MG; Start 10/24/18 at 13:00 Metoprolol Tartrate (Lopressor) 5 mg Q4H PRN IV HR>110 Hold SBP<100 Last administered on 11/06/18 16:17; Admin Dose 5 MG; Start 10/28/18 at 12:30 Phenylephrine HCl 40 mg/Dextrose 250 ml @ 37.5 mls/hr TITRATE IV Last administered on 11/02/18 09:05; Admin Dose 11.25 MLS/HR; Start 11/01/18 at 13:30 IV Flush (NS 10 ml) 10 ml PRN PRN IV IV PROTOCOL; Start 11/01/18 at 16:30 Collagenase (Santyl) 1 applic DAILY TOP Last administered on 11/10/18 09:48; Admin Dose 1 APPLIC; Start 11/01/18 at 19:30 Norepinephrine 32 mg/Dextrose 250 ml @ 0.47 mls/hr TITRATE IV Last administered on 11/02/18 12:15; Admin Dose 0.47 MLS/HR; Start 11/02/18 at 11:30 Midodrine (Proamatine) 5 mg TID@09,13,17 GTB Last administered on 11/08/18 12: 53; Admin Dose 5 MG; Start 11/03/18 at 09:00; Status Hold Guaifenesin (Robitussin Liquid Cup) 100 mg Q4H PRN PO COUGH Last administered on 11/05/18 20:31; Admin Dose 100 MG; Start 11/03/18 at 12:00 Hydrocortisone (Cortef) 20 mg QAM PEG Last administered on 11/11/18 09:58; Admin Dose 20 MG; Start 11/04/18 at 09:00 Hydrocortisone (Cortef) 20 mg AC DINNER PEG Last administered on 11/10/18 18: 08; Admin Dose 20 MG; Start 11/04/18 at 17:05 Hydrocortisone (Cortef) 20 mg HS PEG Last administered on 11/10/18 20:09; Admin Dose 20 MG; Start 11/03/18 at 22:45 Calcitriol (Rocaltrol) 1.5 mcg BID PO Last administered on 11/11/18 10:00; Admin Dose 1.5 MCG; Start 11/07/18 at 21:00 Lorazepam (Ativan) 1 mg Q4 GTB Last administered on 11/11/18 09:56; Admin Dose 1 MG; Start 11/09/18 at 14:00 Carvedilol (Coreg) 6.25 mg BID PO Last administered on 11/11/18 09:59; Admin Dose 6.25 MG; Start 11/09/18 at 21:00 Benazepril HCl (Lotensin) 10 mg DAILY PO Last administered on 11/11/18 09:59; Admin Dose 10 MG; Start 11/10/18 at 09:00 Digoxin (Digoxin) 0.25 mg DAILY@13 PO ; Start 11/11/18 at 13:00 Furosemide (Lasix) 20 mg DAILY IV Last administered on 11/11/18 09:58; Admin Dose 20 MG; Start 11/10/18 at 12:30 Hydromorphone HCl (Dilaudid) 3 mg Q4H PRN PO MODERATE PAIN LEVEL 7-10 Last administered on 11/11/18at 10:02; Admin Dose 3 MG; Start 11/10/18 at 22:00 Cefepime HCl 50 ml @ 100 mls/hr Q12 IVPB Last administered on 11/11/18at 09:55; Admin Dose 100 MLS/HR; Start 11/10/18 at 23:30 NEMO MARTINEZ M.D. Nov 11, 2018 13:09
--- NOTE | 2018-11-11 13:32 | CONS ---
Assessment/Plan Assessment/Plan Hospital Course (Demo Recall) # sepsis, respiratory - recurrent sepsis on 10/08/2018 due to aspiration pneumonia, HCAP - s/p possible aspiration pneumonia, recurrent pneumonia due to citrobacter - acute on chronic hypoxic and hypercarbic respiratory failure - persistent leukocytosis likely due to steroid margination - h/o tracheostomy on 08/26/2018 - h/o "Increased mild left apical pneumothorax" per CXR on 09/19/2018; no pne umothorax mentioned on subsequent CXR - h/o pneumomediastinum - h/o VAT on 08/11/2018 - h/o asthma/COPD exacerbation - h/o acute tracheobronchitis - h/o MAC infection but CT chest did not demonstrate features suggestive of this per chart review - h/o HCAP due to citrobacter, based on resp culture on 09/13/2018 - h/o aspergillus in resp culture according to a note by Dr. Lopez, a pulmonlogist at [facility] on 07/25/2018 - h/o elevated 1,3 [id number]-[id number] level = 232 on 08/06/2018 - h/o MSSA septicemia # GI - diarrhea, C diff on 10/09/2018 was negative. 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 x 21 days from 08/26/2018 - h/o EGD, esophageal biopsy showed esophageal squamous mucosa showing acute inflammation, granulation tissue, and ulceration consistent with ulcerative eso phagitis, rare multinucleated cells with morphology suggestive of vial cytopathic changes, No cardiac mucosa, intestinal metaplasia, dysplasia, or malignancy defined - GERD - PUD # renal/ - Hypokalemia, recurrent - CKD 2 - BPH # cardiac - tachycardia, persistent - ACD - HTN # endo - T2DM - Hgb A1c 7.2% - secondary adrenal insufficiency; steroid dependent - HLD - Hypoparathyroidism - Hypercalcemia - Pamidronate was ordered # neuro - toxic metabolic encephalopathy - Cervical myopathy - Severe cervical spinal cord stenosis with cord compression from C3-C5, s/p laminectomy in ~03/2018 - Chronic pain syndrome - Functional quadriplegia - Seizure d/o # other chronic conditions - RA with chronic steroid dependence - Immunocompromised status - Fibromyalgia - DDD - H/o multiple rib fracture - Pt completed: meropenem (09/25/2018-10/02/2018), vancomycin (09/25/18-09/28/18), pip/tazo (10/09/2018-10/15/2018) - so far: pneumocystis antigen negative, AFB smear negative and final culture x3 pending, quantiferon TB gold negative, coccidioides serology negative recommendations - pending results: culture of tracheal aspirate - repeat C diff test (ordered) - continue cefepime (restarted 11/10/2018-) empirically - continue Bactrim for pneumocystis PPX management d/w charge nurse Matthew the critical care time I took to care for this Pt today was from 1215 to 1245 Consultation Date/Type/Reason Admit Date/Time Oct 09, 2018 at 12:16 Initial Consult Date 10/09/18 Type of Consult ID Requesting Provider: NOLA VIDAL MD Date/Time of Note DATE: 11/11/18 TIME: 13:31 Exam/Review of Systems Exam Vitals Vital Signs Date Temp Pulse Resp B/P (MAP) Pulse Ox O2 O2 Flow FiO2 Time Delivery Rate 11/11/18 106 12:00 11/11/18 25 89 70 11:10 11/11/18 105/78 11:00 (87) 11/11/18 99.2 11:00 11/11/18 Mechanical 10:00 Ventilator Intake and Output 11/10/18 11/10/18 11/11/18 1515:00 23:00 07:00 IntakeIntake Total 1560 ml 370 ml OutputOutput Total 350 ml 1000 ml 500 ml BalanceBalance -350 ml 560 ml -130 ml Results Result Diagram: 11/11/18 0400 11/11/18 0400 Results 24hrs Laboratory Tests Test 11/10/18 14:12 11/10/18 19:53 11/11/18 01:49 11/11/18 04:00 Bedside Glucose 119 122 145 White Blood Count 13.4 H Red Blood Count 2.99 L Hemoglobin 8.6 L Hematocrit 28.3 L Mean Corpuscular 94.6 Volume Mean Corpuscular 28.8 L Hemoglobin Mean Corpuscular 30.4 L Hemoglobin Concent Red Cell 15.9 H Distribution Width Platelet Count 283 Mean Platelet Volume 11.1 H Immature 0.900 H Granulocytes % Neutrophils % 74.2 Lymphocytes % 5.2 L Monocytes % 6.5 Eosinophils % 12.5 H Basophils % 0.7 Nucleated Red Blood 0.0 Cells % Immature 0.120 H Granulocytes # Neutrophils # 9.9 H Lymphocytes # 0.7 L Monocytes # 0.9 Eosinophils # 1.7 H Basophils # 0.1 Nucleated Red Blood 0.0 Cells # Sodium Level 138 Potassium Level 3.7 Chloride Level 89 L Carbon Dioxide Level 41 *H Anion Gap 8 Blood Urea Nitrogen 21 H Creatinine 0.30 L Est Glomerular > 60 Filtrat Rate mL/min Glucose Level 125 Calcium Level 7.7 L Phosphorus Level 4.1 Magnesium Level 1.8 Test 11/11/18 08:25 Bedside Glucose 114 Medications Medication Current Medications Acetaminophen (Tylenol Liquid) 650 mg Q4H PRN GTB MILD PAIN(1-3)OR ELEVATED TEMP Last administered on 11/05/18 23:55; Admin Dose 650 MG; Start 10/09/18 at 14:00 Al Hydrox/Mg Hydrox/Simethicone (Mag-Al Plus) 15 ml Q6H PRN PO GASTROINTESTINAL UPSET Last administered on 10/17/18 13:18; Admin Dose 15 ML; Start 10/09/18 at 14:00 Eye Lubricant (Artificial Tears Oph) 1 drop Q6H PRN BOTH EYES DRY EYES Last administered on 11/03/18 09:33; Admin Dose 1 DROP; Start 10/09/18 at 14:00 Bisacodyl (Dulcolax Supp) 10 mg DAILY PRN MD CONSTIPATION; Start 10/09/18 at 14:00 Clonidine (Catapres) 0.1 mg DAILY PRN GTB ELEVATED BLOOD PRESSURE; Start 10/09/18 at 14:00 Diltiazem HCl (Cardizem Iv) 5 mg Q4 PRN IV ELEVATED HEART RATE Last administered on 11/06/18 18:47; Admin Dose 5 MG; Start 10/09/18 at 14:00 Diphenhydramine HCl (Benadryl Liquid Cup) 25 mg Q6 PRN GTB ITCHING Last administered on 10/22/18 20:25; Admin Dose 25 MG; Start 10/09/18 at 14:00 Duloxetine HCl (Cymbalta) 30 mg DAILY PO Last administered on 11/11/18 09:59; Admin Dose 30 MG; Start 10/10/18 at 09:00 Gabapentin (Neurontin Liquid) 400 mg Q8 GTB Last administered on 11/11/18 05:34; Admin Dose 400 MG; Start 10/09/18 at 15:30 Hydralazine HCl (Apresoline) 10 mg Q4H PRN IV ELEVATED BLOOD PRESSURE; Start 10/09/18 at 14:00 Hydroxychloroquine Sulfate (Plaquenil) 200 mg BID PO Last administered on 11/11/18 10:00; Admin Dose 200 MG; Start 10/09/18 at 21:00 Diagnostic Test (Pha) (Accu-Chek) 1 ea 02 XX Last administered on 11/11/18 01:50; Admin Dose 1 EA; Start 10/10/18 at 02:00 Insulin Aspart (Novolog Insulin Pen) NOVOLOG *CUSTOM* ALGORITHM Q6H SC Last administered on 11/09/18 20:54; Admin Dose 1 UNIT; Start 10/09/18 at 14:00 Lactobacillus Acidophilus (Florajen3 Capsule) 1 each BID GTB Last administered on 11/11/18 09:56; Admin Dose 1 EACH; Start 10/09/18 at 21:00 Lansoprazole (Prevacid) 30 mg BID@06,18 GTB Last administered on 11/11/18 05:34; Admin Dose 30 MG; Start 10/09/18 at 18:00 Levetiracetam (Keppra Liquid) 500 mg BID GTB Last administered on 11/11/18 09:57; Admin Dose 500 MG; Start 10/09/18 at 21:00 Magnesium Oxide (Mag-Ox 400) 400 mg BID GTB Last administered on 11/11/18 09:57; Admin Dose 400 MG; Start 10/09/18 at 21:00 Metoclopramide HCl (Reglan) 10 mg TID IV Last administered on 11/10/18 20:15; Admin Dose 10 MG; Start 10/09/18 at 21:00 Miconazole Nitrate (Miconazole 2% Cr) 1 applic BID TOP Last administered on 11/11/18 10:02; Admin Dose 1 APPLIC; Start 10/09/18 at 21:00 Miconazole Nitrate (Miconazole 2% Cr) 1 applic Q12 PRN TOP rash; Start 10/09/18 at 14:00 Ondansetron HCl (Zofran Inj) 4 mg Q4H PRN IV NAUSEA AND/OR VOMITING Last administered on 10/19/18 16:37; Admin Dose 4 MG; Start 10/09/18 at 14:00 Polyethylene Glycol (Miralax) 17 gm DAILY PRN GTB CONSTIPATION; Start 10/09/18 at 14:00 Senna (Senokot) 2 tab Q8 PRN PO CONSTIPATION; Start 10/09/18 at 14:00 Trimethoprim/ Sulfamethoxazole (Bactrim Susp) 40 ml DAILY GTB Last administered on 11/11/18at 09:56; Admin Dose 40 ML; Start 10/10/18 at 09:00 Zolpidem Tartrate (Ambien) 5 mg HS PRN PO INSOMNIA Last administered on 11/03/18at 01:16; Admin Dose 5 MG; Start 10/09/18 at 14:00 Miscellaneous Information 1 ea NOTE XX ; Start 10/09/18 at 15:00 Glucose (Glutose) 15 gm Q15M PRN PO DECREASED GLUCOSE; Start 10/09/18 at 15:00 Glucose (Glutose) 22.5 gm Q15M PRN PO DECREASED GLUCOSE; Start 10/09/18 at 15:00 Dextrose (D50w Syringe) 25 ml Q15M PRN IV DECREASED GLUCOSE; Start 10/09/18 at 15:00 Dextrose (D50w Syringe) 50 ml Q15M PRN IV DECREASED GLUCOSE; Start 10/09/18 at 15:00 Glucagon (Glucagen) 1 mg Q15M PRN IM DECREASED GLUCOSE; Start 10/09/18 at 15:00 Glucose (Glutose) 15 gm Q15M PRN BUCCAL DECREASED GLUCOSE; Start 10/09/18 at 15:00 Albuterol (Ventolin Hfa) 4 puff Q6H RESP THERAPY INH Last administered on 11/11/18 13:07; Admin Dose 4 PUFF; Start 10/10/18 at 02:00 Ipratropium [place] (Atrovent Hfa) 4 puff Q6H RESP THERAPY INH Last administered on 11/11/18 13:07; Admin Dose 4 PUFF; Start 10/10/18 at 02:00 Lorazepam (Ativan) 1 mg Q4H PRN GTB AGITATION/ANXIETY Last administered on 11/05/18at 20:35; Admin Dose 1 MG; Start 10/14/18 at 13:00 Linagliptin (Tradjenta) 5 mg DAILY PO Last administered on 11/11/18 10:01; Admin Dose 5 MG; Start 10/16/18 at 10:30 Fentanyl (Duragesic 50 Mcg/Hr Patch) 1 patch Q72H TRANSDERM Last administered on 11/11/18 04:38; Admin Dose 1 PATCH; Start 10/17/18 at 20:30 Quetiapine Fumarate (Seroquel) 100 mg BID GTB Last administered on 11/11/18 09:57; Admin Dose 100 MG; Start 10/21/18 at 21:00 Calcium Carbonate (Ca Carbonate) 1,250 mg QID GTB Last administered on 11/11/18 09:56; Admin Dose 1,250 MG; Start 10/24/18 at 13:00 Metoprolol Tartrate (Lopressor) 5 mg Q4H PRN IV HR>110 Hold SBP<100 Last administered on 11/06/18 16:17; Admin Dose 5 MG; Start 10/28/18 at 12:30 Phenylephrine HCl 40 mg/Dextrose 250 ml @ 37.5 mls/hr TITRATE IV Last administered on 11/02/18 09:05; Admin Dose 11.25 MLS/HR; Start 11/01/18 at 13:30 IV Flush (NS 10 ml) 10 ml PRN PRN IV IV PROTOCOL; Start 11/01/18 at 16:30 Collagenase (Santyl) 1 applic DAILY TOP Last administered on 11/10/18 09:48; Admin Dose 1 APPLIC; Start 11/01/18 at 19:30 Norepinephrine 32 mg/Dextrose 250 ml @ 0.47 mls/hr TITRATE IV Last administered on 11/02/18 12:15; Admin Dose 0.47 MLS/HR; Start 11/02/18 at 11:30 Midodrine (Proamatine) 5 mg TID@,13,17 GTB Last administered on 11/08/18 12:53; Admin Dose 5 MG; Start 11/03/18 at 09:00; Status Hold Guaifenesin (Robitussin Liquid Cup) 100 mg Q4H PRN PO COUGH Last administered on 11/05/18 20:31; Admin Dose 100 MG; Start 11/03/18 at 12:00 Hydrocortisone (Cortef) 20 mg QAM PEG Last administered on 11/11/18 09:58; Admin Dose 20 MG; Start 11/04/18 at 09:00 Hydrocortisone (Cortef) 20 mg AC DINNER PEG Last administered on 11/10/18 18:08; Admin Dose 20 MG; Start 11/04/18 at 17:05 Hydrocortisone (Cortef) 20 mg HS PEG Last administered on 11/10/18 20:09; Admin Dose 20 MG; Start 11/03/18 at 22:45 Calcitriol (Rocaltrol) 1.5 mcg BID PO Last administered on 11/11/18 10:00; Admin Dose 1.5 MCG; Start 11/07/18 at 21:00 Lorazepam (Ativan) 1 mg Q4 GTB Last administered on 11/11/18 09:56; Admin Dose 1 MG; Start 11/09/18 at 14:00 Carvedilol (Coreg) 6.25 mg BID PO Last administered on 11/11/18 09:59; Admin Dose 6.25 MG; Start 11/09/18 at 21:00 Benazepril HCl (Lotensin) 10 mg DAILY PO Last administered on 11/11/18 09:59; Admin Dose 10 MG; Start 11/10/18 at 09:00 Digoxin (Digoxin) 0.25 mg DAILY@13 PO ; Start 11/11/18 at 13:00 Furosemide (Lasix) 20 mg DAILY IV Last administered on 11/11/18 09:58; Admin Dose 20 MG; Start 11/10/18 at 12:30 Hydromorphone HCl (Dilaudid) 3 mg Q4H PRN PO MODERATE PAIN LEVEL 7-10 Last administered on 11/11/18 10:02; Admin Dose 3 MG; Start 11/10/18 at 22:00 Cefepime HCl 50 ml @ 100 mls/hr Q12 IVPB Last administered on 11/11/18 09:55; Admin Dose 100 MLS/HR; Start 11/10/18 at 23:30 NEMO MARTINEZ M.D. Nov 11, 2018 13:32
--- NOTE | 2018-11-11 14:10 | PN ---
Date/Time of Note Date/Time of Note DATE: 11/11/18 TIME: 14:09 Assessment/Plan VTE Prophylaxis Risk score (from [facility] [place])>0 risk: 5 SCD applied (from [facility] [place]): Yes SCD contraindicated: other Pharmacological prophylaxis: other Pharm contraindication: other Lines/Catheters IV Catheter Type (from [facility]): PICC Line Central line still needed: Yes Reason Cath still needed: urinary retention Assessment/Plan Assessment/Plan -Acute respiratory failure, continue ventilatory support. Dr. Ricci is following in pulmonology consultation. -Sepsis secondary to pneumonia. Continue antibiotics. Patient is currently on vancomycin and meropenem. Dr. Siobhan gomez is following in infection disease consultation. -Healthcare associated pneumonia -Metabolic acidosis, status post bicarb, resolving. -Hyperkalemia, status post Kayexalate, resolved. -Acute kidney injury on chronic kidney disease. Dr. Pollock is following patient in nephrology consultation. -Abdominal distention most likely secondary to constipation, resolving. Dr. Duong is following in gastroenterology consultation. -Diabetes mellitus with peripheral neuropathy. Continue Lantus and NovoLog. -Preserved ejection fraction -Hypertension -Anemia of chronic disease -Depression -Hx of Left ankle abscess, status post left ankle incision and drainage, repair of anterior talofibular ligament and application of left posterior splint by Dr. Xavier on 09/16/18. Completed treatment with vancomycin for MRSA infection. Critical care time spent is 30 minutes. Further recommendations based on clinical course. Plan of care discussed with Dr. Rosales. Result Diagram: 11/11/18 0400 11/11/18 0400 Results 24hrs Laboratory Tests Test 11/10/18 14:12 11/10/18 19:53 11/11/18 01:49 11/11/18 04:00 Bedside Glucose 119 122 145 White Blood Count 13.4 H Red Blood Count 2.99 L Hemoglobin 8.6 L Hematocrit 28.3 L Mean Corpuscular 94.6 Volume Mean Corpuscular 28.8 L Hemoglobin Mean Corpuscular 30.4 L Hemoglobin Concent Red Cell 15.9 H Distribution Width Platelet Count 283 Mean Platelet Volume 11.1 H Immature 0.900 H Granulocytes % Neutrophils % 74.2 Lymphocytes % 5.2 L Monocytes % 6.5 Eosinophils % 12.5 H Basophils % 0.7 Nucleated Red Blood 0.0 Cells % Immature 0.120 H Granulocytes # Neutrophils # 9.9 H Lymphocytes # 0.7 L Monocytes # 0.9 Eosinophils # 1.7 H Basophils # 0.1 Nucleated Red Blood 0.0 Cells # Sodium Level 138 Potassium Level 3.7 Chloride Level 89 L Carbon Dioxide Level 41 *H Anion Gap 8 Blood Urea Nitrogen 21 H Creatinine 0.30 L Est Glomerular > 60 Filtrat Rate mL/min Glucose Level 125 Calcium Level 7.7 L Phosphorus Level 4.1 Magnesium Level 1.8 Test 11/11/18 08:25 Bedside Glucose 114 Subjective 24 Hr Interval Summary Free Text/Dictation NAD;comfortable on supplemental oxygen -fails CPAP no new events reported overnight dw staff Subjective hx not possible: pt non-verbal, pt critical Constitutional: requiring IVF, requiring O2 Exam/Review of Systems Exam Vitals Vital Signs Date Temp Pulse Resp B/P (MAP) Pulse Ox O2 O2 Flow FiO2 Time Delivery Rate 11/11/18 105 20 96/66 (76) 88 Mechanical 13:00 Ventilator 11/11/18 70 11:10 11/11/18 99.2 11:00 Intake and Output 11/10/18 11/10/18 11/11/18 1515:00 23:00 07:00 IntakeIntake Total 1560 ml 370 ml OutputOutput Total 350 ml 1000 ml 500 ml BalanceBalance -350 ml 560 ml -130 ml Constitutional: well developed, non-verbal, frail Psych: nl mood/affect Eyes: nl lids, nl sclera ENMT: nl external ears & nose Neck: supple, other (trach intact) Respiratory: diminished breath sounds, other Cardiovascular: nl pulses, other Gastrointestinal: soft, non-tender, other (gt intact) Musculoskeletal: muscle weakness, range of motion Extremities: normal pulses Neurological: confused Lymph: nontender Results Results 24hrs Laboratory Tests Test 11/10/18 14:12 11/10/18 19:53 11/11/18 01:49 11/11/18 04:00 Bedside Glucose 119 122 145 White Blood Count 13.4 H Red Blood Count 2.99 L Hemoglobin 8.6 L Hematocrit 28.3 L Mean Corpuscular 94.6 Volume Mean Corpuscular 28.8 L Hemoglobin Mean Corpuscular 30.4 L Hemoglobin Concent Red Cell 15.9 H Distribution Width Platelet Count 283 Mean Platelet Volume 11.1 H Immature 0.900 H Granulocytes % Neutrophils % 74.2 Lymphocytes % 5.2 L Monocytes % 6.5 Eosinophils % 12.5 H Basophils % 0.7 Nucleated Red Blood 0.0 Cells % Immature 0.120 H Granulocytes # Neutrophils # 9.9 H Lymphocytes # 0.7 L Monocytes # 0.9 Eosinophils # 1.7 H Basophils # 0.1 Nucleated Red Blood 0.0 Cells # Sodium Level 138 Potassium Level 3.7 Chloride Level 89 L Carbon Dioxide Level 41 *H Anion Gap 8 Blood Urea Nitrogen 21 H Creatinine 0.30 L Est Glomerular > 60 Filtrat Rate mL/min Glucose Level 125 Calcium Level 7.7 L Phosphorus Level 4.1 Magnesium Level 1.8 Test 11/11/18 08:25 Bedside Glucose 114 Medications Medication Current Medications Acetaminophen (Tylenol Liquid) 650 mg Q4H PRN GTB MILD PAIN(1-3)OR ELEVATED TEMP Last administered on 11/05/18 23:55; Admin Dose 650 MG; Start 10/09/18 at 14:00 Al Hydrox/Mg Hydrox/Simethicone (Mag-Al Plus) 15 ml Q6H PRN PO GASTROINTESTINAL UPSET Last administered on 10/17/18 13:18; Admin Dose 15 ML; Start 10/09/18 at 14:00 Eye Lubricant (Artificial Tears Oph) 1 drop Q6H PRN BOTH EYES DRY EYES Last administered on 11/03/18 09:33; Admin Dose 1 DROP; Start 10/09/18 at 14:00 Bisacodyl (Dulcolax Supp) 10 mg DAILY PRN RI CONSTIPATION; Start 10/09/18 at 14:00 Clonidine (Catapres) 0.1 mg DAILY PRN GTB ELEVATED BLOOD PRESSURE; Start 10/09/18 at 14:00 Diltiazem HCl (Cardizem Iv) 5 mg Q4 PRN IV ELEVATED HEART RATE Last administered on 11/06/18 18:47; Admin Dose 5 MG; Start 10/09/18 at 14:00 Diphenhydramine HCl (Benadryl Liquid Cup) 25 mg Q6 PRN GTB ITCHING Last administered on 10/22/18 20:25; Admin Dose 25 MG; Start 10/09/18 at 14:00 Duloxetine HCl (Cymbalta) 30 mg DAILY PO Last administered on 11/11/18 09:59; Admin Dose 30 MG; Start 10/10/18 at 09:00 Gabapentin (Neurontin Liquid) 400 mg Q8 GTB Last administered on 11/11/18 05:34; Admin Dose 400 MG; Start 10/09/18 at 15:30 Hydralazine HCl (Apresoline) 10 mg Q4H PRN IV ELEVATED BLOOD PRESSURE; Start 10/09/18 at 14:00 Hydroxychloroquine Sulfate (Plaquenil) 200 mg BID PO Last administered on 11/11/18 10:00; Admin Dose 200 MG; Start 10/09/18 at 21:00 Diagnostic Test (Pha) (Accu-Chek) 1 ea 02 XX Last administered on 11/11/18 01:50; Admin Dose 1 EA; Start 10/10/18 at 02:00 Insulin Aspart (Novolog Insulin Pen) NOVOLOG *CUSTOM* ALGORITHM Q6H SC Last administered on 11/09/18 20:54; Admin Dose 1 UNIT; Start 10/09/18 at 14:00 Lactobacillus Acidophilus (Florajen3 Capsule) 1 each BID GTB Last administered on 11/11/18 09:56; Admin Dose 1 EACH; Start 10/09/18 at 21:00 Lansoprazole (Prevacid) 30 mg BID@06,18 GTB Last administered on 11/11/18 05:34; Admin Dose 30 MG; Start 10/09/18 at 18:00 Levetiracetam (Keppra Liquid) 500 mg BID GTB Last administered on 11/11/18 09:57; Admin Dose 500 MG; Start 10/09/18 at 21:00 Magnesium Oxide (Mag-Ox 400) 400 mg BID GTB Last administered on 11/11/18 09:57; Admin Dose 400 MG; Start 10/09/18 at 21:00 Metoclopramide HCl (Reglan) 10 mg TID IV Last administered on 11/11/18 09:00; Admin Dose 10 MG; Start 10/09/18 at 21:00 Miconazole Nitrate (Miconazole 2% Cr) 1 applic BID TOP Last administered on 11/11/18 10:02; Admin Dose 1 APPLIC; Start 10/09/18 at 21:00 Miconazole Nitrate (Miconazole 2% Cr) 1 applic Q12 PRN TOP rash; Start 10/09/18 at 14:00 Ondansetron HCl (Zofran Inj) 4 mg Q4H PRN IV NAUSEA AND/OR VOMITING Last administered on 10/19/18 16:37; Admin Dose 4 MG; Start 10/09/18 at 14:00 Polyethylene Glycol (Miralax) 17 gm DAILY PRN GTB CONSTIPATION; Start 10/09/18 at 14:00 Senna (Senokot) 2 tab Q8 PRN PO CONSTIPATION; Start 10/09/18 at 14:00 Trimethoprim/ Sulfamethoxazole (Bactrim Susp) 40 ml DAILY GTB Last administered on 11/11/18 09:56; Admin Dose 40 ML; Start 10/10/18 at 09:00 Zolpidem Tartrate (Ambien) 5 mg HS PRN PO INSOMNIA Last administered on 11/03 01:16; Admin Dose 5 MG; Start 10/09/18 at 14:00 Miscellaneous Information 1 ea NOTE XX ; Start 10/09/18 at 15:00 Glucose (Glutose) 15 gm Q15M PRN PO DECREASED GLUCOSE; Start 10/09/18 at 15:00 Glucose (Glutose) 22.5 gm Q15M PRN PO DECREASED GLUCOSE; Start 10/09/18 at 15:00 Dextrose (D50w Syringe) 25 ml Q15M PRN IV DECREASED GLUCOSE; Start 10/09/18 at 15:00 Dextrose (D50w Syringe) 50 ml Q15M PRN IV DECREASED GLUCOSE; Start 10/09/18 at 15:00 Glucagon (Glucagen) 1 mg Q15M PRN IM DECREASED GLUCOSE; Start 10/09/18 at 15:00 Glucose (Glutose) 15 gm Q15M PRN BUCCAL DECREASED GLUCOSE; Start 10/09/18 at 15:00 Albuterol (Ventolin Hfa) 4 puff Q6H RESP THERAPY INH Last administered on 11/11/18 13:07; Admin Dose 4 PUFF; Start 10/10/18 at 02:00 Ipratropium [place] (Atrovent Hfa) 4 puff Q6H RESP THERAPY INH Last administered on 11/11/18 13:07; Admin Dose 4 PUFF; Start 10/10/18 at 02:00 Lorazepam (Ativan) 1 mg Q4H PRN GTB AGITATION/ANXIETY Last administered on 11/05/18 20:35; Admin Dose 1 MG; Start 10/14/18 at 13:00 Linagliptin (Tradjenta) 5 mg DAILY PO Last administered on 11/11/18 10:01; Admin Dose 5 MG; Start 10/16/18 at 10:30 Fentanyl (Duragesic 50 Mcg/Hr Patch) 1 patch Q72H TRANSDERM Last administered on 11/11/18 04:38; Admin Dose 1 PATCH; Start 10/17/18 at 20:30 Quetiapine Fumarate (Seroquel) 100 mg BID GTB Last administered on 11/11/18 09:57; Admin Dose 100 MG; Start 10/21/18 at 21:00 Calcium Carbonate (Ca Carbonate) 1,250 mg QID GTB Last administered on 11/11/18 09:56; Admin Dose 1,250 MG; Start 10/24/18 at 13:00 Metoprolol Tartrate (Lopressor) 5 mg Q4H PRN IV HR>110 Hold SBP<100 Last administered on 11/06/18 16:17; Admin Dose 5 MG; Start 10/28/18 at 12:30 Phenylephrine HCl 40 mg/Dextrose 250 ml @ 37.5 mls/hr TITRATE IV Last administered on 11/02/18 09:05; Admin Dose 11.25 MLS/HR; Start 11/01/18 at 13:30 IV Flush (NS 10 ml) 10 ml PRN PRN IV IV PROTOCOL; Start 11/01/18 at 16:30 Collagenase (Santyl) 1 applic DAILY TOP Last administered on 11/10/18 09:48; Admin Dose 1 APPLIC; Start 11/01/18 at 19:30 Norepinephrine 32 mg/Dextrose 250 ml @ 0.47 mls/hr TITRATE IV Last administered on 11/02/18 12:15; Admin Dose 0.47 MLS/HR; Start 11/02/18 at 11:30 Midodrine (Proamatine) 5 mg TID@,,17 GTB Last administered on 11/08/18 12:53; Admin Dose 5 MG; Start 11/03/18 at 09:00; Status Hold Guaifenesin (Robitussin Liquid Cup) 100 mg Q4H PRN PO COUGH Last administered on 11/05/18 20:31; Admin Dose 100 MG; Start 11/03/18 at 12:00 Hydrocortisone (Cortef) 20 mg QAM PEG Last administered on 11/11/18 09:58; Admin Dose 20 MG; Start 11/04/18 at 09:00 Hydrocortisone (Cortef) 20 mg AC DINNER PEG Last administered on 11/10/18 18:08; Admin Dose 20 MG; Start 11/04/18 at 17:05 Hydrocortisone (Cortef) 20 mg HS PEG Last administered on 11/10/18 20:09; Admin Dose 20 MG; Start 11/03/18 at 22:45 Calcitriol (Rocaltrol) 1.5 mcg BID PO Last administered on 11/11/18 10:00; Admin Dose 1.5 MCG; Start 11/07/18 at 21:00 Lorazepam (Ativan) 1 mg Q4 GTB Last administered on 11/11/18 09:56; Admin Dose 1 MG; Start 11/09/18 at 14:00 Carvedilol (Coreg) 6.25 mg BID PO Last administered on 11/11/18 09:59; Admin Dose 6.25 MG; Start 11/09/18 at 21:00 Benazepril HCl (Lotensin) 10 mg DAILY PO Last administered on 11/11/18 09:59; Admin Dose 10 MG; Start 11/10/18 at 09:00 Digoxin (Digoxin) 0.25 mg DAILY@13 PO ; Start 11/11/18 at 13:00 Furosemide (Lasix) 20 mg DAILY IV Last administered on 11/11/18 09:58; Admin Dose 20 MG; Start 11/10/18 at 12:30 Hydromorphone HCl (Dilaudid) 3 mg Q4H PRN PO MODERATE PAIN LEVEL 7-10 Last administered on 11/11/18 10:02; Admin Dose 3 MG; Start 11/10/18 at 22:00 Cefepime HCl 50 ml @ 100 mls/hr Q12 IVPB Last administered on 11/11/18 09:55; Admin Dose 100 MLS/HR; Start 11/10/18 at 23:30 TOMMY MARTELL Nov 11, 2018 14:10
[2018-11-11] MEDS: DIGOXIN 0.25 MG TAB PO SCH (15:07)
[2018-11-11] MEDS: METOPROLOL 5 MG INJ IV PRN (18:31)
[2018-11-12] VITALS (38 sets, daily range): BP systolic 72–165; BP diastolic 44–111; PULSE 97–119; RESP 20–44
[2018-11-12] MEDS: LORAZEPAM 1 MG TAB GTB SCH ×6 (01:00→21:00)
[2018-11-12] MEDS: ALBUTEROL HFA 8 GM INHALER INH SCH ×4 (01:04→20:17)
[2018-11-12] MEDS: IPRATROPIUM (HFA) 12.9 GM INHALER INH SCH ×4 (01:04→20:17)
[2018-11-12] MEDS: ACCU-CHEK XX SCH (02:01)
[2018-11-12] MEDS: INSULIN ASPART [NOVOLOG] 3 ML PEN SC SCH ×4 (02:03→20:00)
[2018-11-12] MEDS: LANSOPRAZOLE 30 MG CAP GTB SCH ×2 (05:03→17:34)
[2018-11-12] MEDS: GABAPENTIN (50 MG/ML PO SYG) GTB SCH ×3 (05:03→21:01)
[2018-11-12] MEDS: HYDROmorphONE 2 MG TAB PO PRN ×3 (06:06→17:34)
--- NOTE | 2018-11-12 08:55 | CONS ---
Assessment/Plan Assessment/Plan Problems: (1) Hypoparathyroidism Status: Chronic Comment: Calciums are stable on the current regimen. Please note the overall prognosis is poor. I concur with Dr. 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 Prognosis is poor (3) Diabetes mellitus type 2 in nonobese Status: Chronic Comment: Adequate control. Prognosis is poor (4) Quadriplegia, C5-C7, incomplete Status: Chronic Comment: Noted. This contributes significantly to the overall poor prognosis (5) Acquired hypothyroidism Status: Chronic Comment: Stable on replacement, prognosis is poor (6) Tracheostomy in place Status: Chronic Comment: Remains ventilator dependent with high FiO2. Prognosis is poor Consultation Date/Type/Reason Admit Date/Time Oct 09, 2018 at 12:16 Initial Consult Date 10/12/18 Type of Consult Endocrinology Reason for Consultation Primary hypoparathyroidism; adrenal insufficiency secondary to chronic steroid usage; rheumatoid arthritis; diabetes mellitus type 2; functional quadriplegia; ventilator dependent respiratory failure Requesting Provider: NOLA VIDAL MD Date/Time of Note DATE: 11/12/18 TIME: 08:52 24 HR Interval Summary Subjective hx not possible: pt non-verbal Detailed Summary Endocrine: no complaints Exam/Review of Systems Exam Vitals Vital Signs Date Temp Pulse Resp B/P (MAP) Pulse Ox O2 O2 Flow FiO2 Time Delivery Rate 11/12/18 80 06:28 11/12/18 116 31 90 06:10 11/12/18 165/95 Mechanical 06:00 (118) Ventilator 11/12/18 97.4 04:00 Intake and Output 11/11/18 11/11/18 11/12/18 1515:00 23:00 07:00 IntakeIntake Total 240 ml 250 ml 280 ml OutputOutput Total 950 ml 200 ml 380 ml BalanceBalance -710 ml 50 ml -100 ml Constitutional: non-verbal Head: normocephalic, atraumatic ENMT: other (Tracheostomy) Cardiovascular: regular rate and rhythm, nl pulses Results Result Diagram: 11/12/18 0500 11/12/18 0500 Results 24hrs Laboratory Tests Test 11/11/18 15:09 11/11/18 17:04 11/11/18 19:56 11/12/18 02:00 Bedside Glucose 152 149 128 187 Test 11/12/18 05:00 White Blood Count 12.6 H Red Blood Count 3.27 L Hemoglobin 9.2 L Hematocrit 30.8 L Mean Corpuscular 94.2 Volume Mean Corpuscular 28.1 L Hemoglobin Mean Corpuscular 29.9 L Hemoglobin Concent Red Cell 15.9 H Distribution Width Platelet Count 350 # Mean Platelet Volume 10.9 H Immature 1.300 H Granulocytes % Neutrophils % 74.9 Lymphocytes % 5.9 L Monocytes % 7.8 Eosinophils % 9.3 H Basophils % 0.8 Nucleated Red Blood 0.0 Cells % Immature 0.170 H Granulocytes # Neutrophils # 9.5 H Lymphocytes # 0.7 L Monocytes # 1.0 H Eosinophils # 1.2 H Basophils # 0.1 Nucleated Red Blood 0.0 Cells # Sodium Level 138 Potassium Level 4.0 Chloride Level 86 L Carbon Dioxide Level 47 *H Anion Gap 5 Blood Urea Nitrogen 26 H Creatinine 0.32 L Est Glomerular > 60 Filtrat Rate mL/min Glucose Level 131 Calcium Level 7.7 L Total Bilirubin 0.1 L Direct Bilirubin 0.00 Indirect Bilirubin 0.1 Aspartate Amino 29 Transf (AST/SGOT) Alanine 35 Aminotransferase (AL T/SGPT) Alkaline Phosphatase 98 Total Protein 4.7 L Albumin 2.6 L Globulin 2.10 Albumin/Globulin 1.23 Ratio Medications Medication Current Medications Acetaminophen (Tylenol Liquid) 650 mg Q4H PRN GTB MILD PAIN(1-3)OR ELEVATED TEMP Last administered on 11/05/18at 23:55; Admin Dose 650 MG; Start 10/09/18 at 14:00 Al Hydrox/Mg Hydrox/Simethicone (Mag-Al Plus) 15 ml Q6H PRN PO GASTROINTESTINAL UPSET Last administered on 10/17/18at 13:18; Admin Dose 15 ML; Start 10/09/18 at 14:00 Eye Lubricant (Artificial Tears Oph) 1 drop Q6H PRN BOTH EYES DRY EYES Last administered on 11/03/18at 09:33; Admin Dose 1 DROP; Start 10/09/18 at 14:00 Bisacodyl (Dulcolax Supp) 10 mg DAILY PRN AL CONSTIPATION; Start 10/09/18 at 14:00 Clonidine (Catapres) 0.1 mg DAILY PRN GTB ELEVATED BLOOD PRESSURE; Start 10/09/18 at 14:00 Diltiazem HCl (Cardizem Iv) 5 mg Q4 PRN IV ELEVATED HEART RATE Last admin istered on 11/06/18 18:47; Admin Dose 5 MG; Start 10/09/18 at 14:00 Diphenhydramine HCl (Benadryl Liquid Cup) 25 mg Q6 PRN GTB ITCHING Last administered on 10/22/18 20:25; Admin Dose 25 MG; Start 10/09/18 at 14:00 Duloxetine HCl (Cymbalta) 30 mg DAILY PO Last administered on 11/11/18 09:59; Admin Dose 30 MG; Start 10/10/18 at 09:00 Gabapentin (Neurontin Liquid) 400 mg Q8 GTB Last administered on 11/12/18 05:03; Admin Dose 400 MG; Start 10/09/18 at 15:30 Hydralazine HCl (Apresoline) 10 mg Q4H PRN IV ELEVATED BLOOD PRESSURE; Start 10/09/18 at 14:00 Hydroxychloroquine Sulfate (Plaquenil) 200 mg BID PO Last administered on 11/11/18 20:28; Admin Dose 200 MG; Start 10/09/18 at 21:00 Diagnostic Test (Pha) (Accu-Chek) 1 ea 02 XX Last administered on 11/12/18 02:01; Admin Dose 1 EA; Start 10/10/18 at 02:00 Insulin Aspart (Novolog Insulin Pen) NOVOLOG *CUSTOM* ALGORITHM Q6H SC Last adm inistered on 11/12/18 02:03; Admin Dose 1 UNIT; Start 10/09/18 at 14:00 Lactobacillus Acidophilus (Florajen3 Capsule) 1 each BID GTB Last administered on 11/11/18 20:30; Admin Dose 1 EACH; Start 10/09/18 at 21:00 Lansoprazole (Prevacid) 30 mg BID@06,18 GTB Last administered on 11/12/18 05:03; Admin Dose 30 MG; Start 10/09/18 at 18:00 Levetiracetam (Keppra Liquid) 500 mg BID GTB Last administered on 3/29/19at 20:27; Admin Dose 500 MG; Start 10/09/18 at 21:00 Magnesium Oxide (Mag-Ox 400) 400 mg BID GTB Last administered on 11/11/18 20:27; Admin Dose 400 MG; Start 10/09/18 at 21:00 Metoclopramide HCl (Reglan) 10 mg TID IV Last administered on 11/11/18 20:27; Admin Dose 10 MG; Start 10/09/18 at 21:00 Miconazole Nitrate (Miconazole 2% Cr) 1 applic BID TOP Last administered on 11/11/18 20:28; Admin Dose 1 APPLIC; Start 10/09/18 at 21:00 Miconazole Nitrate (Miconazole 2% Cr) 1 applic Q12 PRN TOP rash; Start 10/09/18 at 14:00 Ondansetron HCl (Zofran Inj) 4 mg Q4H PRN IV NAUSEA AND/OR VOMITING Last administered on 10/19/18at 16:37; Admin Dose 4 MG; Start 10/09/18 at 14:00 Polyethylene Glycol (Miralax) 17 gm DAILY PRN GTB CONSTIPATION; Start 10/09/18 at 14:00 Senna (Senokot) 2 tab Q8 PRN PO CONSTIPATION; Start 10/09/18 at 14:00 Trimethoprim/ Sulfamethoxazole (Bactrim Susp) 40 ml DAILY GTB Last administered on 11/11/18at 09:56; Admin Dose 40 ML; Start 10/10/18 at 09:00 Zolpidem Tartrate (Ambien) 5 mg HS PRN PO INSOMNIA Last administered on 11/03/18at 01:16; Admin Dose 5 MG; Start 10/09/18 at 14:00 Miscellaneous Information 1 ea NOTE XX ; Start 10/09/18 at 15:00 Glucose (Glutose) 15 gm Q15M PRN PO DECREASED GLUCOSE; Start 10/09/18 at 15:00 Glucose (Glutose) 22.5 gm Q15M PRN PO DECREASED GLUCOSE; Start 10/09/18 at 15:00 Dextrose (D50w Syringe) 25 ml Q15M PRN IV DECREASED GLUCOSE; Start 10/09/18 at 15:00 Dextrose (D50w Syringe) 50 ml Q15M PRN IV DECREASED GLUCOSE; Start 10/09/18 at 15:00 Glucagon (Glucagen) 1 mg Q15M PRN IM DECREASED GLUCOSE; Start 10/09/18 at 15:00 Glucose (Glutose) 15 gm Q15M PRN BUCCAL DECREASED GLUCOSE; Start 10/09/18 at 15:00 Albuterol (Ventolin Hfa) 4 puff Q6H RESP THERAPY INH Last administered on 11/12/18 08:05; Admin Dose 4 PUFF; Start 10/10/18 at 02:00 Ipratropium [place] (Atrovent Hfa) 4 puff Q6H RESP THERAPY INH Last admi nistered on 11/12/18 08:04; Admin Dose 4 PUFF; Start 10/10/18 at 02:00 Lorazepam (Ativan) 1 mg Q4H PRN GTB AGITATION/ANXIETY Last administered on 11/05/18 20:35; Admin Dose 1 MG; Start 10/14/18 at 13:00 Linagliptin (Tradjenta) 5 mg DAILY PO Last administered on 11/11/18 10:01; Admin Dose 5 MG; Start 10/16/18 at 10:30 Fentanyl (Duragesic 50 Mcg/Hr Patch) 1 patch Q72H TRANSDERM Last administered on 11/11/18 04:38; Admin Dose 1 PATCH; Start 10/17/18 at 20:30 Quetiapine Fumarate (Seroquel) 100 mg BID GTB Last administered on 11/11/18 20:27; Admin Dose 100 MG; Start 10/21/18 at 21:00 Calcium Carbonate (Ca Carbonate) 1,250 mg QID GTB Last administered on 11/11/18 20:27; Admin Dose 1,250 MG; Start 10/24/18 at 13:00 Metoprolol Tartrate (Lopressor) 5 mg Q4H PRN IV HR>110 Hold SBP<100 Last a dministered on 11/11/18 18:31; Admin Dose 5 MG; Start 10/28/18 at 12:30 Phenylephrine HCl 40 mg/Dextrose 250 ml @ 37.5 mls/hr TITRATE IV Last administered on 11/02/18 09:05; Admin Dose 11.25 MLS/HR; Start 11/01/18 at 13:30 IV Flush (NS 10 ml) 10 ml PRN PRN IV IV PROTOCOL; Start 11/01/18 at 16:30 Collagenase (Santyl) 1 applic DAILY TOP Last administered on 11/11/18 10:00; Admin Dose 1 APPLIC; Start 11/01/18 at 19:30 Norepinephrine 32 mg/Dextrose 250 ml @ 0.47 mls/hr TITRATE IV Last admin istered on 11/02/18 12:15; Admin Dose 0.47 MLS/HR; Start 11/02/18 at 11:30 Midodrine (Proamatine) 5 mg TID@09,13,17 GTB Last administered on 11/08/18 12:53; Admin Dose 5 MG; Start 11/03/18 at 09:00; Status Hold Guaifenesin (Robitussin Liquid Cup) 100 mg Q4H PRN PO COUGH Last administered on 11/05/18 20:31; Admin Dose 100 MG; Start 11/03/18 at 12:00 Hydrocortisone (Cortef) 20 mg QAM PEG Last administered on 11/11/18 09:58; Admin Dose 20 MG; Start 11/04/18 at 09:00 Hydrocortisone (Cortef) 20 mg AC DINNER PEG Last administered on 11/11/18 18:15; Admin Dose 20 MG; Start 11/04/18 at 17:05 Hydrocortisone (Cortef) 20 mg HS PEG Last administered on 11/11/18 20:28; Admin Dose 20 MG; Start 11/03/18 at 22:45 Calcitriol (Rocaltrol) 1.5 mcg BID PO Last administered on 11/11/18 20:27; Adm in Dose 1.5 MCG; Start 11/07/18 at 21:00 Lorazepam (Ativan) 1 mg Q4 GTB Last administered on 11/12/18 05:03; Admin Dose 1 MG; Start 11/09/18 at 14:00 Carvedilol (Coreg) 6.25 mg BID PO Last administered on 11/11/18 20:27; Admin Dose 6.25 MG; Start 11/09/18 at 21:00 Benazepril HCl (Lotensin) 10 mg DAILY PO Last administered on 11/11/18 09:59; Admin Dose 10 MG; Start 11/10/18 at 09:00 Digoxin (Digoxin) 0.25 mg DAILY@13 PO Last administered on 11/11/18 15:07; Admin Dose 0.25 MG; Start 11/11/18 at 13:00 Furosemide (Lasix) 20 mg DAILY IV Last administered on 11/11/18at 09:58; Admin Dose 20 MG; Start 11/10/18 at 12:30 Hydromorphone HCl (Dilaudid) 3 mg Q4H PRN PO MODERATE PAIN LEVEL 7-10 Last administered on 11/12/18at 06:06; Admin Dose 3 MG; Start 11/10/18 at 22:00 Cefepime HCl 50 ml @ 100 mls/hr Q12 IVPB Last administered on 11/11/18at 20:26; Admin Dose 100 MLS/HR; Start 11/10/18 at 23:30 KEV ISSA MD Nov 12, 2018 08:55
[2018-11-12] MEDS: COLLAGENASE 5 GM (UD JAR) TOP SCH (08:57)
[2018-11-12] MEDS: CA CARBONATE (250 MG/ML) 5ML CUP GTB SCH ×4 (08:57→20:42)
[2018-11-12] MEDS: HYDROXYCHLOROQUINE 200 MG TAB PO SCH ×2 (08:57→20:41)
[2018-11-12] MEDS: L ACIDOPHIL/B LACTIS/B LONGUM CAPSULE GTB SCH ×2 (08:57→20:42)
[2018-11-12] MEDS: LEVETIRACETAM (100 MG/ML) 5ML CUP GTB SCH ×2 (08:57→20:42)
[2018-11-12] MEDS: FUROSEMIDE 20 MG INJ IV SCH (08:57)
[2018-11-12] MEDS: METOCLOPRAMIDE 10 MG INJ IV SCH ×3 (08:57→20:42)
[2018-11-12] MEDS: DULOXETINE 30 MG CAP DR PO SCH (08:58)
[2018-11-12] MEDS: HYDROCORTISONE 20 MG TAB PEG SCH ×3 (08:58→20:41)
[2018-11-12] MEDS: QUETIAPINE 100 MG TAB GTB SCH ×2 (08:58→20:41)
[2018-11-12] MEDS: MAGNESIUM OXIDE 400 MG TAB GTB SCH ×2 (08:58→20:41)
[2018-11-12] MEDS: BENAZEPRIL 10 MG TAB PO SCH (08:59)
[2018-11-12] MEDS: LINAGLIPTIN 5 MG TABLET PO SCH (09:00)
[2018-11-12] MEDS: CEFEPIME 1GM/50 ML (PMX) 50 ML IVPB SCH ×2 (09:00→20:42)
[2018-11-12] MEDS: MICONAZOLE 2% 30 GM CR TOP SCH ×2 (09:00→20:42)
[2018-11-12] MEDS: BALSAM PERU/CASTOR OIL 60 GM TUBE TOP SCH ×2 (09:00→20:42)
[2018-11-12] MEDS: TRIMETHOPRIM/SULFAMETHOX (PO SYG) GTB SCH (09:01)
--- NOTE | 2018-11-12 09:06 | CONS ---
Assessment/Plan Assessment/Plan Assessment/Plan (Daily) Ventilator setting; AC of 20, pressure controlled, PEEP of 8, 80% FiO2. Assessment and recommendations; 1. Patient admitted to ICU because of worsening hypoxemia with history of ARDS and VDR F. 2. History of incomplete quadriplegia. 3. Persistent hypercapnic and hypoxemic respiratory failure. 4. History of HSV esophagitis. 5. History of Aspergillus pneumonia. 6. Hypertension. 7. Peripheral neuropathy. 8. History of stable seizure disorder. 9. Anemia. Continue on supportive care. Overall prognosis remains very poor. Consultation Date/Type/Reason Admit Date/Time Oct 09, 2018 at 12:16 Initial Consult Date 10/12/18 Type of Consult Pulmonary/critical care Patient's condition is stable. Remains completely awake and alert. Has remained hemodynamically stable. Patient also has been switched over to volume control ventilation from pressure-controlled mode. General exam; middle-aged male, on ventilator via tracheostomy, awake and alert. Watching television. Currently in no distress. Area Requesting Provider: NOLA VIDAL MD Date/Time of Note DATE: 11/12/18 TIME: 09:03 24 HR Interval Summary Free Text/Dictation Patient's condition remains critical. Patient however has remained hemodynamically stable. Still on pressure control mode of ventilation with high FiO2 and PEEP. General exam; middle-aged male, on ventilator via tracheostomy, awake and alert. Appropriately communicative. Currently in no distress. Exam/Review of Systems Exam Vitals Vital Signs Date Temp Pulse Resp B/P (MAP) Pulse Ox O2 O2 Flow FiO2 Time Delivery Rate 11/12/18 80 06:28 11/12/18 116 31 90 06:10 11/12/18 165/95 Mechanical 06:00 (118) Ventilator 11/12/18 97.4 04:00 Intake and Output 11/11/18 11/11/18 11/12/18 1515:00 23:00 07:00 IntakeIntake Total 240 ml 250 ml 280 ml OutputOutput Total 950 ml 200 ml 380 ml BalanceBalance -710 ml 50 ml -100 ml Exam HEENT exam; supple neck, no JVD. No lymphadenopathy. Midline trachea. No thyromegaly. Tracheostomy in place. Patient is edentulous. Chest exam; bilateral crackles. S1-S2 audible, no murmurs. Regular rhythm. Abdomen exam; soft, no organomegaly. G-tube in place. Bowel sounds audible. Extremity exam; no peripheral edema. 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 Results Result Diagram: 11/12/18 0500 11/12/18 0500 Results 24hrs Laboratory Tests Test 11/11/18 15:09 11/11/18 17:04 11/11/18 19:56 11/12/18 02:00 Bedside Glucose 152 149 128 187 Test 11/12/18 05:00 White Blood Count 12.6 H Red Blood Count 3.27 L Hemoglobin 9.2 L Hematocrit 30.8 L Mean Corpuscular 94.2 Volume Mean Corpuscular 28.1 L Hemoglobin Mean Corpuscular 29.9 L Hemoglobin Concent Red Cell 15.9 H Distribution Width Platelet Count 350 # Mean Platelet Volume 10.9 H Immature 1.300 H Granulocytes % Neutrophils % 74.9 Lymphocytes % 5.9 L Monocytes % 7.8 Eosinophils % 9.3 H Basophils % 0.8 Nucleated Red Blood 0.0 Cells % Immature 0.170 H Granulocytes # Neutrophils # 9.5 H Lymphocytes # 0.7 L Monocytes # 1.0 H Eosinophils # 1.2 H Basophils # 0.1 Nucleated Red Blood 0.0 Cells # Sodium Level 138 Potassium Level 4.0 Chloride Level 86 L Carbon Dioxide Level 47 *H Anion Gap 5 Blood Urea Nitrogen 26 H Creatinine 0.32 L Est Glomerular > 60 Filtrat Rate mL/min Glucose Level 131 Calcium Level 7.7 L Total Bilirubin 0.1 L Direct Bilirubin 0.00 Indirect Bilirubin 0.1 Aspartate Amino 29 Transf (AST/SGOT) Alanine 35 Aminotransferase (AL T/SGPT) Alkaline Phosphatase 98 Total Protein 4.7 L Albumin 2.6 L Globulin 2.10 Albumin/Globulin 1.23 Ratio Medications Medication Current Medications Acetaminophen (Tylenol Liquid) 650 mg Q4H PRN GTB MILD PAIN(1-3)OR ELEVATED TEMP Last administered on 11/05/18at 23:55; Admin Dose 650 MG; Start 10/09/18 at 14:00 Al Hydrox/Mg Hydrox/Simethicone (Mag-Al Plus) 15 ml Q6H PRN PO GASTROINTESTINAL UPSET Last administered on 10/17/18at 13:18; Admin Dose 15 ML; Start 10/09/18 at 14:00 Eye Lubricant (Artificial Tears Oph) 1 drop Q6H PRN BOTH EYES DRY EYES Last administered on 11/03/18 09:33; Admin Dose 1 DROP; Start 10/09/18 at 14:00 Bisacodyl (Dulcolax Supp) 10 mg DAILY PRN [place] CONSTIPATION; Start 10/09/18 at 14:00 Clonidine (Catapres) 0.1 mg DAILY PRN GTB ELEVATED BLOOD PRESSURE; Start 10/09/18 at 14:00 Diltiazem HCl (Cardizem Iv) 5 mg Q4 PRN IV ELEVATED HEART RATE Last admini stered on 11/06/18 18:47; Admin Dose 5 MG; Start 10/09/18 at 14:00 Diphenhydramine HCl (Benadryl Liquid Cup) 25 mg Q6 PRN GTB ITCHING Last administered on 10/22/18 20:25; Admin Dose 25 MG; Start 10/09/18 at 14:00 Duloxetine HCl (Cymbalta) 30 mg DAILY PO Last administered on 11/11/18 09:59; Admin Dose 30 MG; Start 10/10/18 at 09:00 Gabapentin (Neurontin Liquid) 400 mg Q8 GTB Last administered on 11/12/18 05:03; Admin Dose 400 MG; Start 10/09/18 at 15:30 Hydralazine HCl (Apresoline) 10 mg Q4H PRN IV ELEVATED BLOOD PRESSURE; Start 10/09/18 at 14:00 Hydroxychloroquine Sulfate (Plaquenil) 200 mg BID PO Last administered on 11/11/18 20:28; Admin Dose 200 MG; Start 10/09/18 at 21:00 Diagnostic Test (Pha) (Accu-Chek) 1 ea 02 XX Last administered on 11/12/18 02:01; Admin Dose 1 EA; Start 10/10/18 at 02:00 Insulin Aspart (Novolog Insulin Pen) NOVOLOG *CUSTOM* ALGORITHM Q6H SC Last administered on 11/12/18 02:03; Admin Dose 1 UNIT; Start 10/09/18 at 14:00 Lactobacillus Acidophilus (Florajen3 Capsule) 1 each BID GTB Last administered on 11/11/18 20:30; Admin Dose 1 EACH; Start 10/09/18 at 21:00 Lansoprazole (Prevacid) 30 mg BID@,18 GTB Last administered on 11/12/18 05:03; Admin Dose 30 MG; Start 10/09/18 at 18:00 Levetiracetam (Keppra Liquid) 500 mg BID GTB Last administered on 11/11/18 20:27; Admin Dose 500 MG; Start 10/09/18 at 21:00 Magnesium Oxide (Mag-Ox 400) 400 mg BID GTB Last administered on 11/11/18 20:27; Admin Dose 400 MG; Start 10/09/18 at 21:00 Metoclopramide HCl (Reglan) 10 mg TID IV Last administered on 11/11/18 20:27; Admin Dose 10 MG; Start 10/09/18 at 21:00 Miconazole Nitrate (Miconazole 2% Cr) 1 applic BID TOP Last administered on 11/11/18 20:28; Admin Dose 1 APPLIC; Start 10/09/18 at 21:00 Miconazole Nitrate (Miconazole 2% Cr) 1 applic Q12 PRN TOP rash; Start 10/09/18 at 14:00 Ondansetron HCl (Zofran Inj) 4 mg Q4H PRN IV NAUSEA AND/OR VOMITING Last administered on 10/19/18 16:37; Admin Dose 4 MG; Start 10/09/18 at 14:00 Polyethylene Glycol (Miralax) 17 gm DAILY PRN GTB CONSTIPATION; Start 10/09/18 at 14:00 Senna (Senokot) 2 tab Q8 PRN PO CONSTIPATION; Start 10/09/18 at 14:00 Trimethoprim/ Sulfamethoxazole (Bactrim Susp) 40 ml DAILY GTB Last administered on 11/11/18 09:56; Admin Dose 40 ML; Start 10/10/18 at 09:00 Zolpidem Tartrate (Ambien) 5 mg HS PRN PO INSOMNIA Last administered on 11/03/18 01:16; Admin Dose 5 MG; Start 10/09/18 at 14:00 Miscellaneous Information 1 ea NOTE XX ; Start 10/09/18 at 15:00 Glucose (Glutose) 15 gm Q15M PRN PO DECREASED GLUCOSE; Start 10/09/18 at 15:00 Glucose (Glutose) 22.5 gm Q15M PRN PO DECREASED GLUCOSE; Start 10/09/18 at 15:00 Dextrose (D50w Syringe) 25 ml Q15M PRN IV DECREASED GLUCOSE; Start 10/09/18 at 15:00 Dextrose (D50w Syringe) 50 ml Q15M PRN IV DECREASED GLUCOSE; Start 10/09/18 at 15:00 Glucagon (Glucagen) 1 mg Q15M PRN IM DECREASED GLUCOSE; Start 10/09/18 at 15:00 Glucose (Glutose) 15 gm Q15M PRN BUCCAL DECREASED GLUCOSE; Start 10/09/18 at 15:00 Albuterol (Ventolin Hfa) 4 puff Q6H RESP THERAPY INH Last administered on 11/12/18 08:05; Admin Dose 4 PUFF; Start 10/10/18 at 02:00 Ipratropium [place] (Atrovent Hfa) 4 puff Q6H RESP THERAPY INH Last admin istered on 11/12/18 08:04; Admin Dose 4 PUFF; Start 10/10/18 at 02:00 Lorazepam (Ativan) 1 mg Q4H PRN GTB AGITATION/ANXIETY Last administered on 11/05/18 20:35; Admin Dose 1 MG; Start 10/14/18 at 13:00 Linagliptin (Tradjenta) 5 mg DAILY PO Last administered on 11/11/18 10:01; Admin Dose 5 MG; Start 10/16/18 at 10:30 Fentanyl (Duragesic 50 Mcg/Hr Patch) 1 patch Q72H TRANSDERM Last administered on 11/11/18 04:38; Admin Dose 1 PATCH; Start 10/17/18 at 20:30 Quetiapine Fumarate (Seroquel) 100 mg BID GTB Last administered on 11/11/18 20:27; Admin Dose 100 MG; Start 10/21/18 at 21:00 Calcium Carbonate (Ca Carbonate) 1,250 mg QID GTB Last administered on 11/11/18 20:27; Admin Dose 1,250 MG; Start 10/24/18 at 13:00 Metoprolol Tartrate (Lopressor) 5 mg Q4H PRN IV HR>110 Hold SBP<100 Last ad ministered on 11/11/18 18:31; Admin Dose 5 MG; Start 10/28/18 at 12:30 Phenylephrine HCl 40 mg/Dextrose 250 ml @ 37.5 mls/hr TITRATE IV Last administered on 11/02/18 09:05; Admin Dose 11.25 MLS/HR; Start 11/01/18 at 13:30 IV Flush (NS 10 ml) 10 ml PRN PRN IV IV PROTOCOL; Start 11/01/18 at 16:30 Collagenase (Santyl) 1 applic DAILY TOP Last administered on 11/11/18 10:00; Admin Dose 1 APPLIC; Start 11/01/18 at 19:30 Norepinephrine 32 mg/Dextrose 250 ml @ 0.47 mls/hr TITRATE IV Last admini stered on 11/02/18 12:15; Admin Dose 0.47 MLS/HR; Start 11/02/18 at 11:30 Midodrine (Proamatine) 5 mg TID@09,13,17 GTB Last administered on 11/08/18 12:53; Admin Dose 5 MG; Start 11/03/18 at 09:00; Status Hold Guaifenesin (Robitussin Liquid Cup) 100 mg Q4H PRN PO COUGH Last administered on 11/05/18 20:31; Admin Dose 100 MG; Start 11/03/18 at 12:00 Hydrocortisone (Cortef) 20 mg QAM PEG Last administered on 11/11/18 09:58; Admin Dose 20 MG; Start 11/04/18 at 09:00 Hydrocortisone (Cortef) 20 mg AC DINNER PEG Last administered on 11/11/18 18:15; Admin Dose 20 MG; Start 11/04/18 at 17:05 Hydrocortisone (Cortef) 20 mg HS PEG Last administered on 11/11/18 20:28; Admin Dose 20 MG; Start 11/03/18 at 22:45 Calcitriol (Rocaltrol) 1.5 mcg BID PO Last administered on 11/11/18 20:27; Admin Dose 1.5 MCG; Start 11/07/18 at 21:00 Lorazepam (Ativan) 1 mg Q4 GTB Last administered on 11/12/18 05:03; Admin Dose 1 MG; Start 11/09/18 at 14:00 Carvedilol (Coreg) 6.25 mg BID PO Last administered on 11/11/18 20:27; Admin Dose 6.25 MG; Start 11/09/18 at 21:00 Benazepril HCl (Lotensin) 10 mg DAILY PO Last administered on 11/11/18 09:59; Admin Dose 10 MG; Start 11/10/18 at 09:00 Digoxin (Digoxin) 0.25 mg DAILY@13 PO Last administered on 11/11/18 15:07; Admin Dose 0.25 MG; Start 11/11/18 at 13:00 Furosemide (Lasix) 20 mg DAILY IV Last administered on 11/11/18 09:58; Admin Dose 20 MG; Start 11/10/18 at 12:30 Hydromorphone HCl (Dilaudid) 3 mg Q4H PRN PO MODERATE PAIN LEVEL 7-10 Last administered on 11/12/18 06:06; Admin Dose 3 MG; Start 11/10/18 at 22:00 Cefepime HCl 50 ml @ 100 mls/hr Q12 IVPB Last administered on 11/11/18 20:26; Admin Dose 100 MLS/HR; Start 11/10/18 at 23:30 PILAR BERGER Nov 12, 2018 09:06
[2018-11-12] MEDS: CALCITRIOL 0.5 MCG CAPSULE PO SCH ×2 (10:16→20:41)
--- NOTE | 2018-11-12 11:38 | CONS ---
Consult Date/Type/Reason Admit Date/Time Oct 09, 2018 at 12:16 Initial Consult Date 10/09/18 Type of Consultation: Pulm/CCM Requesting Provider: NOLA VIDAL MD Date/Time of Note DATE: 11/12/18 TIME: 11:36 Subjective NO acute events - chronicsinus tach - still high FiO2. ROS: No fever, no chills, no nausea, no vomiting, no diarrhea/constipation + weight loss No chest pain, no PND, no orthopnea + SOB + anxiety No dizziness, blurred vision No thirst, no heat or cold intolerance Objective Vitals Vital Signs Date Temp Pulse Resp B/P (MAP) Pulse Ox O2 O2 Flow FiO2 Time Delivery Rate 11/12/18 117 27 93 90 11:10 11/12/18 102/69 Mechanical 10:00 (80) Ventilator Trach Collar 11/12/18 98.5 08:00 Intake and Output 11/11/18 11/11/18 11/12/18 1515:00 23:00 07:00 IntakeIntake Total 240 ml 250 ml 280 ml OutputOutput Total 950 ml 200 ml 380 ml BalanceBalance -710 ml 50 ml -100 ml Exam General: WN/WD/NAD, AOx anxious HEENT: Unicetric/atraumatic/EOMI (follow commands) NECK: trach Lymph: no lymphadenopathy HEART: regular with no S3, II/ systolic murmur at apex, tachy LUNGS: Coarse sounds ABD: soft, NT, ND, +BS : Intact Neuro: non focal SKIN: chronic changes EXT: trace edema Results/Medications Result Diagram: 11/12/18 0500 11/12/18 0500 Results 24 hrs Laboratory Tests Test 11/11/18 15:09 11/11/18 17:04 11/11/18 19:56 11/12/18 02:00 Bedside Glucose 152 149 128 187 Test 11/12/18 05:00 11/12/18 08:55 White Blood Count 12.6 H Red Blood Count 3.27 L Hemoglobin 9.2 L Hematocrit 30.8 L Mean Corpuscular 94.2 Volume Mean Corpuscular 28.1 L Hemoglobin Mean Corpuscular 29.9 L Hemoglobin Concent Red Cell 15.9 H Distribution Width Platelet Count 350 # Mean Platelet Volume 10.9 H Immature 1.300 H Granulocytes % Neutrophils % 74.9 Lymphocytes % 5.9 L Monocytes % 7.8 Eosinophils % 9.3 H Basophils % 0.8 Nucleated Red Blood 0.0 Cells % Immature 0.170 H Granulocytes # Neutrophils # 9.5 H Lymphocytes # 0.7 L Monocytes # 1.0 H Eosinophils # 1.2 H Basophils # 0.1 Nucleated Red Blood 0.0 Cells # Sodium Level 138 Potassium Level 4.0 Chloride Level 86 L Carbon Dioxide Level 47 *H Anion Gap 5 Blood Urea Nitrogen 26 H Creatinine 0.32 L Est Glomerular > 60 Filtrat Rate mL/min Glucose Level 131 Calcium Level 7.7 L Total Bilirubin 0.1 L Direct Bilirubin 0.00 Indirect Bilirubin 0.1 Aspartate Amino 29 Transf (AST/SGOT) Alanine 35 Aminotransferase (AL T/SGPT) Alkaline Phosphatase 98 Total Protein 4.7 L Albumin 2.6 L Globulin 2.10 Albumin/Globulin 1.23 Ratio Bedside Glucose 118 Medications Current Medications Acetaminophen (Tylenol Liquid) 650 mg Q4H PRN GTB MILD PAIN(1-3)OR ELEVATED TEMP Last administered on 11/05/18 23:55; Admin Dose 650 MG; Start 10/09/18 at 14:00 Al Hydrox/Mg Hydrox/Simethicone (Mag-Al Plus) 15 ml Q6H PRN PO GASTROINTESTINAL UPSET Last administered on 10/17/18 13:18; Admin Dose 15 ML; Start 10/09/18 at 14:00 Eye Lubricant (Artificial Tears Oph) 1 drop Q6H PRN BOTH EYES DRY EYES Last administered on 11/03/18 09:33; Admin Dose 1 DROP; Start 10/09/18 at 14:00 Bisacodyl (Dulcolax Supp) 10 mg DAILY PRN [place] CONSTIPATION; Start 10/09/18 at 14:00 Clonidine (Catapres) 0.1 mg DAILY PRN GTB ELEVATED BLOOD PRESSURE; Start 10/09/18 at 14:00 Diltiazem HCl (Cardizem Iv) 5 mg Q4 PRN IV ELEVATED HEART RATE Last administered on 11/06/18at 18:47; Admin Dose 5 MG; Start 10/09/18 at 14:00 Diphenhydramine HCl (Benadryl Liquid Cup) 25 mg Q6 PRN GTB ITCHING Last administered on 10/22/18 20:25; Admin Dose 25 MG; Start 10/09/18 at 14:00 Duloxetine HCl (Cymbalta) 30 mg DAILY PO Last administered on 11/12/18 08:58; Admin Dose 30 MG; Start 10/10/18 at 09:00 Gabapentin (Neurontin Liquid) 400 mg Q8 GTB Last administered on 11/12/18 05:03; Admin Dose 400 MG; Start 10/09/18 at 15:30 Hydralazine HCl (Apresoline) 10 mg Q4H PRN IV ELEVATED BLOOD PRESSURE; Start 10/09/18 at 14:00 Hydroxychloroquine Sulfate (Plaquenil) 200 mg BID PO Last administered on 11/12/18 08:57; Admin Dose 200 MG; Start 10/09/18 at 21:00 Diagnostic Test (Pha) (Accu-Chek) 1 ea 02 XX Last administered on 11/12/18 02:01; Admin Dose 1 EA; Start 10/10/18 at 02:00 Insulin Aspart (Novolog Insulin Pen) NOVOLOG *CUSTOM* ALGORITHM Q6H SC Last administered on 11/12/18 02:03; Admin Dose 1 UNIT; Start 10/09/18 at 14:00 Lactobacillus Acidophilus (Florajen3 Capsule) 1 each BID GTB Last administered on 11/12/18 08:57; Admin Dose 1 EACH; Start 10/09/18 at 21:00 Lansoprazole (Prevacid) 30 mg BID@06,18 GTB Last administered on 11/12/18 05:03; Admin Dose 30 MG; Start 10/09/18 at 18:00 Levetiracetam (Keppra Liquid) 500 mg BID GTB Last administered on 11/12/18 08:57; Admin Dose 500 MG; Start 10/09/18 at 21:00 Magnesium Oxide (Mag-Ox 400) 400 mg BID GTB Last administered on 11/12/18 08:58; Admin Dose 400 MG; Start 10/09/18 at 21:00 Metoclopramide HCl (Reglan) 10 mg TID IV Last administered on 11/12/18 08:57; Admin Dose 10 MG; Start 10/09/18 at 21:00 Miconazole Nitrate (Miconazole 2% Cr) 1 applic BID TOP Last administered on 11/12/18 09:00; Admin Dose 1 APPLIC; Start 10/09/18 at 21:00 Miconazole Nitrate (Miconazole 2% Cr) 1 applic Q12 PRN TOP rash; Start 10/09/18 at 14:00 Ondansetron HCl (Zofran Inj) 4 mg Q4H PRN IV NAUSEA AND/OR VOMITING Last admi nistered on 10/19/18at 16:37; Admin Dose 4 MG; Start 10/09/18 at 14:00 Polyethylene Glycol (Miralax) 17 gm DAILY PRN GTB CONSTIPATION; Start 10/09/18 at 14:00 Senna (Senokot) 2 tab Q8 PRN PO CONSTIPATION; Start 10/09/18 at 14:00 Trimethoprim/ Sulfamethoxazole (Bactrim Susp) 40 ml DAILY GTB Last administered on 11/12/18at 09:01; Admin Dose 40 ML; Start 10/10/18 at 09:00 Zolpidem Tartrate (Ambien) 5 mg HS PRN PO INSOMNIA Last administered on 11/03/18at 01:16; Admin Dose 5 MG; Start 10/09/18 at 14:00 Miscellaneous Information 1 ea NOTE XX ; Start 10/09/18 at 15:00 Glucose (Glutose) 15 gm Q15M PRN PO DECREASED GLUCOSE; Start 10/09/18 at 15:00 Glucose (Glutose) 22.5 gm Q15M PRN PO DECREASED GLUCOSE; Start 10/09/18 at 15:00 Dextrose (D50w Syringe) 25 ml Q15M PRN IV DECREASED GLUCOSE; Start 10/09/18 at 15:00 Dextrose (D50w Syringe) 50 ml Q15M PRN IV DECREASED GLUCOSE; Start 10/09/18 at 15:00 Glucagon (Glucagen) 1 mg Q15M PRN IM DECREASED GLUCOSE; Start 10/09/18 at 15:00 Glucose (Glutose) 15 gm Q15M PRN BUCCAL DECREASED GLUCOSE; Start 10/09/18 at 15:00 Albuterol (Ventolin Hfa) 4 puff Q6H RESP THERAPY INH Last administered on 11/12/18at 08:05; Admin Dose 4 PUFF; Start 10/10/18 at 02:00 Ipratropium [place] (Atrovent Hfa) 4 puff Q6H RESP THERAPY INH Last administered on 11/12/18 08:04; Admin Dose 4 PUFF; Start 10/10/18 at 02:00 Lorazepam (Ativan) 1 mg Q4H PRN GTB AGITATION/ANXIETY Last administered on 11/05/18 20:35; Admin Dose 1 MG; Start 10/14/18 at 13:00 Linagliptin (Tradjenta) 5 mg DAILY PO Last administered on 11/12/18 09:00; Admin Dose 5 MG; Start 10/16/18 at 10:30 Fentanyl (Duragesic 50 Mcg/Hr Patch) 1 patch Q72H TRANSDERM Last administered on 11/11/18 04:38; Admin Dose 1 PATCH; Start 10/17/18 at 20:30 Quetiapine Fumarate (Seroquel) 100 mg BID GTB Last administered on 11/12/18 08:58; Admin Dose 100 MG; Start 10/21/18 at 21:00 Calcium Carbonate (Ca Carbonate) 1,250 mg QID GTB Last administered on 11/12/18 08:57; Admin Dose 1,250 MG; Start 10/24/18 at 13:00 Metoprolol Tartrate (Lopressor) 5 mg Q4H PRN IV HR>110 Hold SBP<100 Last administered on 11/11/18 18:31; Admin Dose 5 MG; Start 10/28/18 at 12:30 Phenylephrine HCl 40 mg/Dextrose 250 ml @ 37.5 mls/hr TITRATE IV Last administered on 11/02/18 09:05; Admin Dose 11.25 MLS/HR; Start 11/01/18 at 13 :30 IV Flush (NS 10 ml) 10 ml PRN PRN IV IV PROTOCOL; Start 11/01/18 at 16:30 Collagenase (Santyl) 1 applic DAILY TOP Last administered on 11/12/18 08:57; Admin Dose 1 APPLIC; Start 11/01/18 at 19:30 Norepinephrine 32 mg/Dextrose 250 ml @ 0.47 mls/hr TITRATE IV Last administered on 11/02/18 12:15; Admin Dose 0.47 MLS/HR; Start 11/02/18 at 11:30 Midodrine (Proamatine) 5 mg TID@,,17 GTB Last administered on 11/08/18 12:53; Admin Dose 5 MG; Start 11/03/18 at 09:00; Status Hold Guaifenesin (Robitussin Liquid Cup) 100 mg Q4H PRN PO COUGH Last administered on 11/05/18 20:31; Admin Dose 100 MG; Start 11/03/18 at 12:00 Hydrocortisone (Cortef) 20 mg QAM PEG Last administered on 11/12/18 08:58; Admin Dose 20 MG; Start 11/04/18 at 09:00 Hydrocortisone (Cortef) 20 mg AC DINNER PEG Last administered on 11/11/18 18:15; Admin Dose 20 MG; Start 11/04/18 at 17:05 Hydrocortisone (Cortef) 20 mg HS PEG Last administered on 11/11/18 20:28; Admin Dose 20 MG; Start 11/03/18 at 22:45 Calcitriol (Rocaltrol) 1.5 mcg BID PO Last administered on 11/12/18 10:16; Admin Dose 1.5 MCG; Start 11/07/18 at 21:00 Lorazepam (Ativan) 1 mg Q4 GTB Last administered on 11/12/18 08:57; Admin Dose 1 MG; Start 11/09/18 at 14:00 Carvedilol (Coreg) 6.25 mg BID PO Last administered on 11/12/18 08:59; Admin Dose 6.25 MG; Start 11/09/18 at 21:00 Benazepril HCl (Lotensin) 10 mg DAILY PO Last administered on 11/12/18 08:59; Admin Dose 10 MG; Start 11/10/18 at 09:00 Digoxin (Digoxin) 0.25 mg DAILY@13 PO Last administered on 11/11/18 15:07; Admin Dose 0.25 MG; Start 11/11/18 at 13:00 Furosemide (Lasix) 20 mg DAILY IV Last administered on 11/12/18 08:57; Admin Dose 20 MG; Start 11/10/18 at 12:30 Hydromorphone HCl (Dilaudid) 3 mg Q4H PRN PO MODERATE PAIN LEVEL 7-10 Last administered on 11/12/18 10:16; Admin Dose 3 MG; Start 11/10/18 at 22:00 Cefepime HCl 50 ml @ 100 mls/hr Q12 IVPB Last administered on 11/12/18 09:00; Admin Dose 100 MLS/HR; Start 11/10/18 at 23:30 Assessment/Plan Hospital Course (Demo Recall) 1. Tachycardia at this time in the setting of fevers and respiratory distress, most consistent with sinus tachycardia likely driving this process - better now, con't supportive Rx and pain management- con't anxiety Rx. Con;t supportive RX. Rate controlled at rest. Keep euvolemic as tolerated. LAbile rate - con;t supportive rX . Overall unchanged. Con't resp Rx. 2. Hypertension with borderline hypotension at this time. -still borderline Hotn - no focal symptoms. Will monitor now. In good range. STABLE. 3. Abnormal electrocardiogram at baseline.Sinus tach. OK to hydrate. Euvolemic now. 4. Chronic respiratory failure, status post tracheostomy.-weaning vent support - con't resp Rx. Con;t resp Rx. Pulmonary follows. 5. Dysphagia, status post G-tube. 6. Quadriplegia- skin care in place. NO change. Skin care. 7. Renal insufficiency, on steroids- Cr 0.28 now. Stable. Good urine output now. Good urine output. Resolved. 8. Chronic obstructive pulmonary disease - con't resp Rx per pulmonary team. On vent Can not wean. . 9. Rheumatoid arthritis. 10. Chronic kidney disease- better now. 11. Diabetes mellitus- on meds. 12. Anemia - of chronic Dz, ar 9.9 now H/H - no bleeding. VANESSA COOPER MD Nov 12, 2018 11:38
[2018-11-12] MEDS: DIGOXIN 0.25 MG TAB PO SCH (13:28)
--- NOTE | 2018-11-12 14:23 | CONS ---
Assessment/Plan Assessment/Plan Hospital Course (Demo Recall) # sepsis, respiratory - recurrent sepsis on 10/08/2018 due to aspiration pneumonia, HCAP - s/p possible aspiration pneumonia, recurrent pneumonia due to citrobacter - acute on chronic hypoxic and hypercarbic respiratory failure - persistent leukocytosis likely due to steroid margination - h/o tracheostomy on 08/26/2018 - h/o "Increased mild left apical pneumothorax" per CXR on 09/19/2018; no pne umothorax mentioned on subsequent CXR - h/o pneumomediastinum - h/o VAT on 08/11/2018 - h/o asthma/COPD exacerbation - h/o acute tracheobronchitis - h/o MAC infection but CT chest did not demonstrate features suggestive of this per chart review - h/o HCAP due to citrobacter, based on resp culture on 09/13/2018 - h/o aspergillus in resp culture according to a note by Dr. Lopez, a pulmonlogist at [facility] on 07/25/2018 - h/o elevated 1,3 [id number] level = 232 on 08/06/2018 - h/o MSSA septicemia # GI - diarrhea, C diff on 10/09/2018 was negative. 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 x 21 days from 08/26/2018 - h/o EGD, esophageal biopsy showed esophageal squamous mucosa showing acute inflammation, granulation tissue, and ulceration consistent with ulcerative eso phagitis, rare multinucleated cells with morphology suggestive of vial cytopathic changes, No cardiac mucosa, intestinal metaplasia, dysplasia, or malignancy defined - GERD - PUD # renal/ - Hypokalemia, recurrent - CKD 2 - BPH # cardiac - tachycardia, persistent - ACD - HTN # endo - T2DM - Hgb A1c 7.2% - secondary adrenal insufficiency; steroid dependent - HLD - Hypoparathyroidism - Hypercalcemia - Pamidronate was ordered # neuro - toxic metabolic encephalopathy - Cervical myopathy - Severe cervical spinal cord stenosis with cord compression from C3-C5, s/p laminectomy in ~03/2018 - Chronic pain syndrome - Functional quadriplegia - Seizure d/o # other chronic conditions - RA with chronic steroid dependence - Immunocompromised status - Fibromyalgia - DDD - H/o multiple rib fracture - Pt completed: meropenem (09/25/2018-10/02/2018), vancomycin (09/25/18-09/28/18), pip/tazo (10/09/2018-10/15/2018) - so far: pneumocystis antigen negative, AFB smear negative and final culture x3 pending, quantiferon TB gold negative, coccidioides serology negative Recommendations: - pending final results: culture of tracheal aspirate (GNR) - repeat C diff test (ordered) - I asked pt's RN to send this tomorrow as it will be more than 7 days from last C diff test - continue cefepime (restarted 11/10/2018-) empirically as we are waiting for final resp cx results - continue Bactrim for pneumocystis PPX Management d/w [employer] Mateo and with Dr. Davila Critical care time spent: 30 min Consultation Date/Type/Reason Admit Date/Time Oct 09, 2018 at 12:16 Initial Consult Date 10/12/18 Type of Consult Infectious Disease Requesting Provider: NOLA VIDAL MD Date/Time of Note DATE: 11/12/18 TIME: 14:19 24 HR Interval Summary Free Text/Dictation Low grade fever yesterday, none today. FiO2 weaned down to 85% per d/w nursing. Nods "yes" to having pain and "no" that pain is currently tolerable. Subjective hx not possible: pt non-verbal, pt critical status Exam/Review of Systems Exam Vitals Vital Signs Date Temp Pulse Resp B/P (MAP) Pulse Ox O2 O2 Flow FiO2 Time Delivery Rate 11/12/18 104 12:00 11/12/18 90 12:00 11/12/18 27 93 11:10 11/12/18 102/69 Mechanical 10:00 (80) Ventilator Trach Collar 11/12/18 98.5 08:00 Intake and Output 11/11/18 11/11/18 11/12/18 1515:00 23:00 07:00 IntakeIntake Total 240 ml 250 ml 280 ml OutputOutput Total 950 ml 200 ml 380 ml BalanceBalance -710 ml 50 ml -100 ml Exam Constitutional: non-verbal, frail, other (chronically debilitated, opens eyes to tactile stimuli) Head: normocephalic, atraumatic Eyes: nl conjunctiva, nl lids ENMT: nl external ears & nose, nl nasal mucosa & septum Neck: other (trach midline) Respiratory: crackles/rales Cardiovascular: other (regular rhythm, tachycardic 100's) Gastrointestinal: soft, non-tender, other (G-tube with TF in progress; Flexiseal with liquid brown stool) Genitourinary - Male: other (Condom catheter in place with yellow urine) Musculoskeletal: nl extremities to inspection Extremities: pitting pedal edema, other (bilateral foot drop); Neurological: lethargic Skin: other (stage 2 decub on back - nurses notes and photos reviewed in chart) Results Result Diagram: 11/12/18 0500 11/12/18 0500 Results 24hrs Laboratory Tests Test 11/11/18 15:09 11/11/18 17:04 11/11/18 19:56 11/12/18 02:00 Bedside Glucose 152 149 128 187 Test 11/12/18 05:00 11/12/18 08:55 11/12/18 13:33 White Blood Count 12.6 H Red Blood Count 3.27 L Hemoglobin 9.2 L Hematocrit 30.8 L Mean Corpuscular 94.2 Volume Mean Corpuscular 28.1 L Hemoglobin Mean Corpuscular 29.9 L Hemoglobin Concent Red Cell 15.9 H Distribution Width Platelet Count 350 # Mean Platelet Volume 10.9 H Immature 1.300 H Granulocytes % Neutrophils % 74.9 Lymphocytes % 5.9 L Monocytes % 7.8 Eosinophils % 9.3 H Basophils % 0.8 Nucleated Red Blood 0.0 Cells % Immature 0.170 H Granulocytes # Neutrophils # 9.5 H Lymphocytes # 0.7 L Monocytes # 1.0 H Eosinophils # 1.2 H Basophils # 0.1 Nucleated Red Blood 0.0 Cells # Sodium Level 138 Potassium Level 4.0 Chloride Level 86 L Carbon Dioxide Level 47 *H Anion Gap 5 Blood Urea Nitrogen 26 H Creatinine 0.32 L Est Glomerular > 60 Filtrat Rate mL/min Glucose Level 131 Calcium Level 7.7 L Total Bilirubin 0.1 L Direct Bilirubin 0.00 Indirect Bilirubin 0.1 Aspartate Amino 29 Transf (AST/SGOT) Alanine 35 Aminotransferase (AL T/SGPT) Alkaline Phosphatase 98 Total Protein 4.7 L Albumin 2.6 L Globulin 2.10 Albumin/Globulin 1.23 Ratio Bedside Glucose 118 144 Medications Medication Current Medications Acetaminophen (Tylenol Liquid) 650 mg Q4H PRN GTB MILD PAIN(1-3)OR ELEVATED TEMP Last administered on 11/05/18 23:55; Admin Dose 650 MG; Start 10/09/18 at 14:00 Al Hydrox/Mg Hydrox/Simethicone (Mag-Al Plus) 15 ml Q6H PRN PO GASTROINTESTINAL UPSET Last administered on 10/17/18 13:18; Admin Dose 15 ML; Start 10/09/18 at 14:00 Eye Lubricant (Artificial Tears Oph) 1 drop Q6H PRN BOTH EYES DRY EYES Last administered on 11/03/18 09:33; Admin Dose 1 DROP; Start 10/09/18 at 14:00 Bisacodyl (Dulcolax Supp) 10 mg DAILY PRN [place] CONSTIPATION; Start 10/09/18 at 14:00 Clonidine (Catapres) 0.1 mg DAILY PRN GTB ELEVATED BLOOD PRESSURE; Start 10/09/18 at 14:00 Diltiazem HCl (Cardizem Iv) 5 mg Q4 PRN IV ELEVATED HEART RATE Last administered on 11/06/18 18:47; Admin Dose 5 MG; Start 10/09/18 at 14:00 Diphenhydramine HCl (Benadryl Liquid Cup) 25 mg Q6 PRN GTB ITCHING Last administered on 10/22/18 20:25; Admin Dose 25 MG; Start 10/09/18 at 14:00 Duloxetine HCl (Cymbalta) 30 mg DAILY PO Last administered on 11/12/18 08:58; Admin Dose 30 MG; Start 10/10/18 at 09:00 Gabapentin (Neurontin Liquid) 400 mg Q8 GTB Last administered on 11/12/18 13:31; Admin Dose 400 MG; Start 10/09/18 at 15:30 Hydralazine HCl (Apresoline) 10 mg Q4H PRN IV ELEVATED BLOOD PRESSURE; Start 10/09/18 at 14:00 Hydroxychloroquine Sulfate (Plaquenil) 200 mg BID PO Last administered on 11/12/18 08:57; Admin Dose 200 MG; Start 10/09/18 at 21:00 Diagnostic Test (Pha) (Accu-Chek) 1 ea 02 XX Last administered on 11/12/18 02:01; Admin Dose 1 EA; Start 10/10/18 at 02:00 Insulin Aspart (Novolog Insulin Pen) NOVOLOG *CUSTOM* ALGORITHM Q6H SC Last administered on 11/12/18 02:03; Admin Dose 1 UNIT; Start 10/09/18 at 14:00 Lactobacillus Acidophilus (Florajen3 Capsule) 1 each BID GTB Last administered on 11/12/18 08:57; Admin Dose 1 EACH; Start 10/09/18 at 21:00 Lansoprazole (Prevacid) 30 mg BID@,18 GTB Last administered on 11/12/18 05:03; Admin Dose 30 MG; Start 10/09/18 at 18:00 Levetiracetam (Keppra Liquid) 500 mg BID GTB Last administered on 11/12/18 08:57; Admin Dose 500 MG; Start 10/09/18 at 21:00 Magnesium Oxide (Mag-Ox 400) 400 mg BID GTB Last administered on 11/12/18 08:58; Admin Dose 400 MG; Start 10/09/18 at 21:00 Metoclopramide HCl (Reglan) 10 mg TID IV Last administered on 11/12/18 13:29; Admin Dose 10 MG; Start 10/09/18 at 21:00 Miconazole Nitrate (Miconazole 2% Cr) 1 applic BID TOP Last administered on 11/12/18 09:00; Admin Dose 1 APPLIC; Start 10/09/18 at 21:00 Miconazole Nitrate (Miconazole 2% Cr) 1 applic Q12 PRN TOP rash; Start 10/09/18 at 14:00 Ondansetron HCl (Zofran Inj) 4 mg Q4H PRN IV NAUSEA AND/OR VOMITING Last administered on 10/19/18 16:37; Admin Dose 4 MG; Start 10/09/18 at 14:00 Polyethylene Glycol (Miralax) 17 gm DAILY PRN GTB CONSTIPATION; Start 10/09/18 at 14:00 Senna (Senokot) 2 tab Q8 PRN PO CONSTIPATION; Start 10/09/18 at 14:00 Trimethoprim/ Sulfamethoxazole (Bactrim Susp) 40 ml DAILY GTB Last administered on 11/12/18 09:01; Admin Dose 40 ML; Start 10/10/18 at 09:00 Zolpidem Tartrate (Ambien) 5 mg HS PRN PO INSOMNIA Last administered on 11/03/18 01:16; Admin Dose 5 MG; Start 10/09/18 at 14:00 Miscellaneous Information 1 ea NOTE XX ; Start 10/09/18 at 15:00 Glucose (Glutose) 15 gm Q15M PRN PO DECREASED GLUCOSE; Start 10/09/18 at 15:00 Glucose (Glutose) 22.5 gm Q15M PRN PO DECREASED GLUCOSE; Start 10/09/18 at 15:00 Dextrose (D50w Syringe) 25 ml Q15M PRN IV DECREASED GLUCOSE; Start 10/09/18 at 15:00 Dextrose (D50w Syringe) 50 ml Q15M PRN IV DECREASED GLUCOSE; Start 10/09/18 at 15:00 Glucagon (Glucagen) 1 mg Q15M PRN IM DECREASED GLUCOSE; Start 10/09/18 at 15:00 Glucose (Glutose) 15 gm Q15M PRN BUCCAL DECREASED GLUCOSE; Start 10/09/18 at 15:00 Albuterol (Ventolin Hfa) 4 puff Q6H RESP THERAPY INH Last administered on 11/12/18 13:26; Admin Dose 4 PUFF; Start 10/10/18 at 02:00 Ipratropium [place] (Atrovent Hfa) 4 puff Q6H RESP THERAPY INH Last administered on 11/12/18 13:25; Admin Dose 4 PUFF; Start 10/10/18 at 02:00 Lorazepam (Ativan) 1 mg Q4H PRN GTB AGITATION/ANXIETY Last administered on 11/05/18 20:35; Admin Dose 1 MG; Start 10/14/18 at 13:00 Linagliptin (Tradjenta) 5 mg DAILY PO Last administered on 11/12/18 09:00; Admin Dose 5 MG; Start 10/16/18 at 10:30 Fentanyl (Duragesic 50 Mcg/Hr Patch) 1 patch Q72H TRANSDERM Last administered on 11/11/18 04:38; Admin Dose 1 PATCH; Start 10/17/18 at 20:30 Quetiapine Fumarate (Seroquel) 100 mg BID GTB Last administered on 11/12/18 08:58; Admin Dose 100 MG; Start 10/21/18 at 21:00 Calcium Carbonate (Ca Carbonate) 1,250 mg QID GTB Last administered on 11/12/18 13:29; Admin Dose 1,250 MG; Start 10/24/18 at 13:00 Metoprolol Tartrate (Lopressor) 5 mg Q4H PRN IV HR>110 Hold SBP<100 Last administered on 11/11/18 18:31; Admin Dose 5 MG; Start 10/28/18 at 12:30 Phenylephrine HCl 40 mg/Dextrose 250 ml @ 37.5 mls/hr TITRATE IV Last administered on 11/02/18 09:05; Admin Dose 11.25 MLS/HR; Start 11/01/18 at 13:30 IV Flush (NS 10 ml) 10 ml PRN PRN IV IV PROTOCOL; Start 11/01/18 at 16:30 Collagenase (Santyl) 1 applic DAILY TOP Last administered on 11/12/18 08:57; Admin Dose 1 APPLIC; Start 11/01/18 at 19:30 Norepinephrine 32 mg/Dextrose 250 ml @ 0.47 mls/hr TITRATE IV Last administered on 11/02/18 12:15; Admin Dose 0.47 MLS/HR; Start 11/02/18 at 11:30 Midodrine (Proamatine) 5 mg TID@09,13,17 GTB Last administered on 11/08/18 12:53; Admin Dose 5 MG; Start 11/03/18 at 09:00; Status Hold Guaifenesin (Robitussin Liquid Cup) 100 mg Q4H PRN PO COUGH Last administered on 11/05/18 20:31; Admin Dose 100 MG; Start 11/03/18 at 12:00 Hydrocortisone (Cortef) 20 mg QAM PEG Last administered on 11/12/18 08:58; Admin Dose 20 MG; Start 11/04/18 at 09:00 Hydrocortisone (Cortef) 20 mg AC DINNER PEG Last administered on 11/11/18 18:15; Admin Dose 20 MG; Start 11/04/18 at 17:05 Hydrocortisone (Cortef) 20 mg HS PEG Last administered on 11/11/18 20:28; Admin Dose 20 MG; Start 11/03/18 at 22:45 Calcitriol (Rocaltrol) 1.5 mcg BID PO Last administered on 11/12/18 10:16; Admin Dose 1.5 MCG; Start 11/07/18 at 21:00 Lorazepam (Ativan) 1 mg Q4 GTB Last administered on 11/12/18 13:28; Admin Dose 1 MG; Start 11/09/18 at 14:00 Carvedilol (Coreg) 6.25 mg BID PO Last administered on 11/12/18 08:59; Admin Dose 6.25 MG; Start 11/09/18 at 21:00 Benazepril HCl (Lotensin) 10 mg DAILY PO Last administered on 11/12/18 08:59; Admin Dose 10 MG; Start 11/10/18 at 09:00 Digoxin (Digoxin) 0.25 mg DAILY@13 PO Last administered on 11/12/18 13:28; Admin Dose 0.25 MG; Start 11/11/18 at 13:00 Furosemide (Lasix) 20 mg DAILY IV Last administered on 11/12/18 08:57; Admin Dose 20 MG; Start 11/10/18 at 12:30 Hydromorphone HCl (Dilaudid) 3 mg Q4H PRN PO MODERATE PAIN LEVEL 7-10 Last administered on 11/12/18 10:16; Admin Dose 3 MG; Start 11/10/18 at 22:00 Cefepime HCl 50 ml @ 100 mls/hr Q12 IVPB Last administered on 11/12/18 09:00; Admin Dose 100 MLS/HR; Start 11/10/18 at 23:30 CATHERINE FISH NP Nov 12, 2018 14:23
--- NOTE | 2018-11-12 16:43 | PN ---
Date/Time of Note Date/Time of Note DATE: 11/12/18 TIME: 16:42 Assessment/Plan VTE Prophylaxis Risk score (from [facility])>0 risk: 9 SCD applied (from [facility]): Yes SCD contraindicated: other Pharmacological prophylaxis: other Pharm contraindication: other Lines/Catheters IV Catheter Type (from [facility]): PICC Line Central line still needed: Yes Assessment/Plan Assessment/Plan -Acute respiratory failure, continue ventilatory support. Dr. Ricci is fol lowing in pulmonology consultation. -Sepsis secondary to pneumonia. Continue antibiotics. Patient is currently on vancomycin and meropenem. Dr. Siobhan gomez is following in infection disease consultation. -Healthcare associated pneumonia -Metabolic acidosis, status post bicarb, resolving. -Hyperkalemia, status post Kayexalate, resolved. -Acute kidney injury on chronic kidney disease. Dr. Pollock is following patient in nephrology consultation. -Abdominal distention most likely secondary to constipation, resolving. Dr. Duong is following in gastroenterology consultation. -Diabetes mellitus with peripheral neuropathy. Continue Lantus and NovoLog. -Preserved ejection fraction -Hypertension -Anemia of chronic disease -Depression -Hx of Left ankle abscess, status post left ankle incision and drainage, repair of anterior talofibular ligament and application of left posterior splint by Dr. Xavier on 09/16/18. Completed treatment with vancomycin for MRSA infection. Critical care time spent is 30 minutes. Further recommendations based on clinical course. Plan of care discussed with Dr. Rosales. Result Diagram: 11/12/18 0500 11/12/18 0500 Results 24hrs Laboratory Tests Test 11/11/18 17:04 11/11/18 19:56 11/12/18 02:00 11/12/18 05:00 Bedside Glucose 149 128 187 White Blood Count 12.6 H Red Blood Count 3.27 L Hemoglobin 9.2 L Hematocrit 30.8 L Mean Corpuscular 94.2 Volume Mean Corpuscular 28.1 L Hemoglobin Mean Corpuscular 29.9 L Hemoglobin Concent Red Cell 15.9 H Distribution Width Platelet Count 350 # Mean Platelet Volume 10.9 H Immature 1.300 H Granulocytes % Neutrophils % 74.9 Lymphocytes % 5.9 L Monocytes % 7.8 Eosinophils % 9.3 H Basophils % 0.8 Nucleated Red Blood 0.0 Cells % Immature 0.170 H Granulocytes # Neutrophils # 9.5 H Lymphocytes # 0.7 L Monocytes # 1.0 H Eosinophils # 1.2 H Basophils # 0.1 Nucleated Red Blood 0.0 Cells # Sodium Level 138 Potassium Level 4.0 Chloride Level 86 L Carbon Dioxide Level 47 *H Anion Gap 5 Blood Urea Nitrogen 26 H Creatinine 0.32 L Est Glomerular > 60 Filtrat Rate mL/min Glucose Level 131 Calcium Level 7.7 L Total Bilirubin 0.1 L Direct Bilirubin 0.00 Indirect Bilirubin 0.1 Aspartate Amino 29 Transf (AST/SGOT) Alanine 35 Aminotransferase (AL T/SGPT) Alkaline Phosphatase 98 Total Protein 4.7 L Albumin 2.6 L Globulin 2.10 Albumin/Globulin 1.23 Ratio Test 11/12/18 08:55 11/12/18 13:33 Bedside Glucose 118 144 Subjective 24 Hr Interval Summary Free Text/Dictation NAD;comfortable on supplemental oxygen -fails CPAP; onFio2 90 % no new events reported overnight dw staff Subjective hx not possible: pt non-verbal, pt critical Constitutional: requiring IVF, requiring O2 Exam/Review of Systems Exam Vitals Vital Signs Date Temp Pulse Resp B/P (MAP) Pulse Ox O2 O2 Flow FiO2 Time Delivery Rate 11/12/18 99 21 91/56 (68) 93 Mechanical 14:00 Ventilator 11/12/18 90 12:00 11/12/18 98.5 12:00 Intake and Output 11/11/18 11/11/18 11/12/18 1515:00 23:00 07:00 IntakeIntake Total 240 ml 250 ml 370 ml OutputOutput Total 950 ml 200 ml 380 ml BalanceBalance -710 ml 50 ml -10 ml Constitutional: well developed, non-verbal, frail Psych: nl mood/affect Eyes: nl lids, nl sclera ENMT: nl external ears & nose Neck: other (trach intact) Respiratory: diminished breath sounds Cardiovascular: nl pulses, other (s1s2) Gastrointestinal: soft, other (gt intact) Musculoskeletal: muscle weakness, range of motion Extremities: normal pulses Neurological: lethargic Skin: other Lymph: nontender Results Results 24hrs Laboratory Tests Test 11/11/18 17:04 11/11/18 19:56 11/12/18 02:00 11/12/18 05:00 Bedside Glucose 149 128 187 White Blood Count 12.6 H Red Blood Count 3.27 L Hemoglobin 9.2 L Hematocrit 30.8 L Mean Corpuscular 94.2 Volume Mean Corpuscular 28.1 L Hemoglobin Mean Corpuscular 29.9 L Hemoglobin Concent Red Cell 15.9 H Distribution Width Platelet Count 350 # Mean Platelet Volume 10.9 H Immature 1.300 H Granulocytes % Neutrophils % 74.9 Lymphocytes % 5.9 L Monocytes % 7.8 Eosinophils % 9.3 H Basophils % 0.8 Nucleated Red Blood 0.0 Cells % Immature 0.170 H Granulocytes # Neutrophils # 9.5 H Lymphocytes # 0.7 L Monocytes # 1.0 H Eosinophils # 1.2 H Basophils # 0.1 Nucleated Red Blood 0.0 Cells # Sodium Level 138 Potassium Level 4.0 Chloride Level 86 L Carbon Dioxide Level 47 *H Anion Gap 5 Blood Urea Nitrogen 26 H Creatinine 0.32 L Est Glomerular > 60 Filtrat Rate mL/min Glucose Level 131 Calcium Level 7.7 L Total Bilirubin 0.1 L Direct Bilirubin 0.00 Indirect Bilirubin 0.1 Aspartate Amino 29 Transf (AST/SGOT) Alanine 35 Aminotransferase (AL T/SGPT) Alkaline Phosphatase 98 Total Protein 4.7 L Albumin 2.6 L Globulin 2.10 Albumin/Globulin 1.23 Ratio Test 11/12/18 08:55 11/12/18 13:33 Bedside Glucose 118 144 Medications Medication Current Medications Acetaminophen (Tylenol Liquid) 650 mg Q4H PRN GTB MILD PAIN(1-3)OR ELEVATED TE MP Last administered on 11/05/18at 23:55; Admin Dose 650 MG; Start 10/09/18 at 14:00 Al Hydrox/Mg Hydrox/Simethicone (Mag-Al Plus) 15 ml Q6H PRN PO GASTROINTESTINAL UPSET Last administered on 10/17/18at 13:18; Admin Dose 15 ML; Start 10/09/18 at 14:00 Eye Lubricant (Artificial Tears Oph) 1 drop Q6H PRN BOTH EYES DRY EYES Last administered on 11/03/18at 09:33; Admin Dose 1 DROP; Start 10/09/18 at 14:00 Bisacodyl (Dulcolax Supp) 10 mg DAILY PRN [place] CONSTIPATION; Start 10/09/18 at 14:00 Clonidine (Catapres) 0.1 mg DAILY PRN GTB ELEVATED BLOOD PRESSURE; Start 10/09/18 at 14:00 Diltiazem HCl (Cardizem Iv) 5 mg Q4 PRN IV ELEVATED HEART RATE Last administered on 11/06/18 18:47; Admin Dose 5 MG; Start 10/09/18 at 14:00 Diphenhydramine HCl (Benadryl Liquid Cup) 25 mg Q6 PRN GTB ITCHING Last admin istered on 10/22/18 20:25; Admin Dose 25 MG; Start 10/09/18 at 14:00 Duloxetine HCl (Cymbalta) 30 mg DAILY PO Last administered on 11/12/18 08:58; Admin Dose 30 MG; Start 10/10/18 at 09:00 Gabapentin (Neurontin Liquid) 400 mg Q8 GTB Last administered on 11/12/18 13:31; Admin Dose 400 MG; Start 10/09/18 at 15:30 Hydralazine HCl (Apresoline) 10 mg Q4H PRN IV ELEVATED BLOOD PRESSURE; Start 10/09/18 at 14:00 Hydroxychloroquine Sulfate (Plaquenil) 200 mg BID PO Last administered on 11/12/18 08:57; Admin Dose 200 MG; Start 10/09/18 at 21:00 Diagnostic Test (Pha) (Accu-Chek) 1 ea 02 XX Last administered on 11/12/18 02:01; Admin Dose 1 EA; Start 10/10/18 at 02:00 Insulin Aspart (Novolog Insulin Pen) NOVOLOG *CUSTOM* ALGORITHM Q6H SC Last administered on 11/12/18 02:03; Admin Dose 1 UNIT; Start 10/09/18 at 14:00 Lactobacillus Acidophilus (Florajen3 Capsule) 1 each BID GTB Last administered on 11/12/18 08:57; Admin Dose 1 EACH; Start 10/09/18 at 21:00 Lansoprazole (Prevacid) 30 mg BID@,18 GTB Last administered on 11/12/18 05:03; Admin Dose 30 MG; Start 10/09/18 at 18:00 Levetiracetam (Keppra Liquid) 500 mg BID GTB Last administered on 11/12/18 08:57; Admin Dose 500 MG; Start 10/09/18 at 21:00 Magnesium Oxide (Mag-Ox 400) 400 mg BID GTB Last administered on 3/30/19at 08: 58; Admin Dose 400 MG; Start 10/09/18 at 21:00 Metoclopramide HCl (Reglan) 10 mg TID IV Last administered on 11/12/18at 13:29; Admin Dose 10 MG; Start 10/09/18 at 21:00 Miconazole Nitrate (Miconazole 2% Cr) 1 applic BID TOP Last administered on 11/12/18at 09:00; Admin Dose 1 APPLIC; Start 10/09/18 at 21:00 Miconazole Nitrate (Miconazole 2% Cr) 1 applic Q12 PRN TOP rash; Start 10/09/18 at 14:00 Ondansetron HCl (Zofran Inj) 4 mg Q4H PRN IV NAUSEA AND/OR VOMITING Last administered on 10/19/18at 16:37; Admin Dose 4 MG; Start 10/09/18 at 14:00 Polyethylene Glycol (Miralax) 17 gm DAILY PRN GTB CONSTIPATION; Start 10/09/18 at 14:00 Senna (Senokot) 2 tab Q8 PRN PO CONSTIPATION; Start 10/09/18 at 14:00 Trimethoprim/ Sulfamethoxazole (Bactrim Susp) 40 ml DAILY GTB Last administered on 11/12/18at 09:01; Admin Dose 40 ML; Start 10/10/18 at 09:00 Zolpidem Tartrate (Ambien) 5 mg HS PRN PO INSOMNIA Last administered on 11/03/18at 01:16; Admin Dose 5 MG; Start 10/09/18 at 14:00 Miscellaneous Information 1 ea NOTE XX ; Start 10/09/18 at 15:00 Glucose (Glutose) 15 gm Q15M PRN PO DECREASED GLUCOSE; Start 10/09/18 at 15:00 Glucose (Glutose) 22.5 gm Q15M PRN PO DECREASED GLUCOSE; Start 10/09/18 at 15:00 Dextrose (D50w Syringe) 25 ml Q15M PRN IV DECREASED GLUCOSE; Start 10/09/18 at 15:00 Dextrose (D50w Syringe) 50 ml Q15M PRN IV DECREASED GLUCOSE; Start 10/09/18 at 15:00 Glucagon (Glucagen) 1 mg Q15M PRN IM DECREASED GLUCOSE; Start 10/09/18 at 15:00 Glucose (Glutose) 15 gm Q15M PRN BUCCAL DECREASED GLUCOSE; Start 10/09/18 at 15:00 Albuterol (Ventolin Hfa) 4 puff Q6H RESP THERAPY INH Last administered on 11/12/18 13:26; Admin Dose 4 PUFF; Start 10/10/18 at 02:00 Ipratropium [place] (Atrovent Hfa) 4 puff Q6H RESP THERAPY INH Last administered on 11/12/18 13:25; Admin Dose 4 PUFF; Start 10/10/18 at 02:00 Lorazepam (Ativan) 1 mg Q4H PRN GTB AGITATION/ANXIETY Last administered on 11/05/18 20:35; Admin Dose 1 MG; Start 10/14/18 at 13:00 Linagliptin (Tradjenta) 5 mg DAILY PO Last administered on 11/12/18 09:00; Admin Dose 5 MG; Start 10/16/18 at 10:30 Fentanyl (Duragesic 50 Mcg/Hr Patch) 1 patch Q72H TRANSDERM Last administered on 11/11/18 04:38; Admin Dose 1 PATCH; Start 10/17/18 at 20:30 Quetiapine Fumarate (Seroquel) 100 mg BID GTB Last administered on 11/12/18 08:58; Admin Dose 100 MG; Start 10/21/18 at 21:00 Calcium Carbonate (Ca Carbonate) 1,250 mg QID GTB Last administered on 11/12/18 13:29; Admin Dose 1,250 MG; Start 10/24/18 at 13:00 Metoprolol Tartrate (Lopressor) 5 mg Q4H PRN IV HR>110 Hold SBP<100 Last administered on 11/11/18 18:31; Admin Dose 5 MG; Start 10/28/18 at 12:30 Phenylephrine HCl 40 mg/Dextrose 250 ml @ 37.5 mls/hr TITRATE IV Last ad ministered on 11/02/18 09:05; Admin Dose 11.25 MLS/HR; Start 11/01/18 at 13:30 IV Flush (NS 10 ml) 10 ml PRN PRN IV IV PROTOCOL; Start 11/01/18 at 16:30 Collagenase (Santyl) 1 applic DAILY TOP Last administered on 11/12/18 08:57; Admin Dose 1 APPLIC; Start 11/01/18 at 19:30 Norepinephrine 32 mg/Dextrose 250 ml @ 0.47 mls/hr TITRATE IV Last administered on 11/02/18 12:15; Admin Dose 0.47 MLS/HR; Start 11/02/18 at 11:30 Midodrine (Proamatine) 5 mg TID@09,13,17 GTB Last administered on 11/08/18 12:53; Admin Dose 5 MG; Start 11/03/18 at 09:00; Status Hold Guaifenesin (Robitussin Liquid Cup) 100 mg Q4H PRN PO COUGH Last administered on 11/05/18 20:31; Admin Dose 100 MG; Start 11/03/18 at 12:00 Hydrocortisone (Cortef) 20 mg QAM PEG Last administered on 11/12/18 08:58; Admin Dose 20 MG; Start 11/04/18 at 09:00 Hydrocortisone (Cortef) 20 mg AC DINNER PEG Last administered on 11/11/18 18:15; Admin Dose 20 MG; Start 11/04/18 at 17:05 Hydrocortisone (Cortef) 20 mg HS PEG Last administered on 11/11/18 20:28; Admin Dose 20 MG; Start 11/03/18 at 22:45 Calcitriol (Rocaltrol) 1.5 mcg BID PO Last administered on 11/12/18 10:16; Admin Dose 1.5 MCG; Start 11/07/18 at 21:00 Lorazepam (Ativan) 1 mg Q4 GTB Last administered on 11/12/18 13:28; Admin Dose 1 MG; Start 11/09/18 at 14:00 Carvedilol (Coreg) 6.25 mg BID PO Last administered on 11/12/18 08:59; Admin Dose 6.25 MG; Start 11/09/18 at 21:00 Benazepril HCl (Lotensin) 10 mg DAILY PO Last administered on 11/12/18 08:59; Admin Dose 10 MG; Start 11/10/18 at 09:00 Digoxin (Digoxin) 0.25 mg DAILY@13 PO Last administered on 11/12/18 13:28; Admin Dose 0.25 MG; Start 11/11/18 at 13:00 Furosemide (Lasix) 20 mg DAILY IV Last administered on 11/12/18 08:57; Admin Dose 20 MG; Start 11/10/18 at 12:30 Hydromorphone HCl (Dilaudid) 3 mg Q4H PRN PO MODERATE PAIN LEVEL 7-10 Last administered on 11/12/18at 10:16; Admin Dose 3 MG; Start 11/10/18 at 22:00 Cefepime HCl 50 ml @ 100 mls/hr Q12 IVPB Last administered on 11/12/18at 09:00; Admin Dose 100 MLS/HR; Start 11/10/18 at 23:30 TOMMY MARTELL Nov 12, 2018 16:43
[2018-11-13] VITALS (36 sets, daily range): BP systolic 80–130; BP diastolic 51–81; PULSE 95–114; RESP 20–31
[2018-11-13] MEDS: LORAZEPAM 1 MG TAB GTB SCH ×6 (01:00→20:21)
[2018-11-13] MEDS: INSULIN ASPART [NOVOLOG] 3 ML PEN SC SCH ×4 (01:05→20:00)
[2018-11-13] MEDS: ACCU-CHEK XX SCH (01:29)
[2018-11-13] MEDS: ALBUTEROL HFA 8 GM INHALER INH SCH ×4 (01:48→19:55)
[2018-11-13] MEDS: IPRATROPIUM (HFA) 12.9 GM INHALER INH SCH ×4 (01:48→19:55)
[2018-11-13] MEDS: HYDROmorphONE 2 MG TAB PO PRN ×3 (02:58→17:59)
[2018-11-13] MEDS: GABAPENTIN (50 MG/ML PO SYG) GTB SCH ×3 (05:46→22:29)
[2018-11-13] MEDS: LANSOPRAZOLE 30 MG CAP GTB SCH ×2 (05:46→17:58)
--- NOTE | 2018-11-13 08:29 | CONS ---
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 (5) Acquired hypothyroidism Status: Chronic Comment: Stable on replacement (6) Metabolic alkalosis with respiratory acidosis Status: Acute Comment: Managed by pulmonary Consultation Date/Type/Reason Admit Date/Time Oct 09, 2018 at 12:16 Initial Consult Date 10/12/18 Type of Consult Endocrinology Reason for Consultation Primary hypoparathyroidism with hypocalcemia; adrenal insufficiency secondary to chronic steroid usage for rheumatoid arthritis; diabetes mellitus type 2; sign ificant metabolic alkalosis in response to respiratory acidosis Requesting Provider: NOLA VIDAL MD Date/Time of Note DATE: 11/13/18 TIME: 08:25 24 HR Interval Summary Free Text/Dictation Patient remains cognizant but nonverbal. Detailed Summary Endocrine: no complaints Exam/Review of Systems Exam Vitals Vital Signs Date Temp Pulse Resp B/P (MAP) Pulse Ox O2 O2 Flow FiO2 Time Delivery Rate 11/13/18 102 20 106/61 Mechanical 07:00 (76) Ventilator Trach Collar 11/13/18 98 06:00 11/13/18 85 05:26 11/13/18 99.3 04:00 Intake and Output 11/12/18 11/12/18 11/13/18 1414:59 22:59 06:59 IntakeIntake Total 470 ml 570 ml 470 ml OutputOutput Total 400 ml 750 ml 260 ml BalanceBalance 70 ml -180 ml 210 ml Constitutional: alert, non-verbal ENMT: other (Tracheostomy in place) Neck: other (Colostomy in place) Cardiovascular: regular rate and rhythm, nl pulses Gastrointestinal: soft, nl liver, spleen, non-tender Neurological: other (Minimal movement of the lower extremities, no movement of upper extremities) Results Result Diagram: 11/13/18 0415 11/13/18 0415 Results 24hrs Laboratory Tests Test 11/12/18 08:55 11/12/18 13:33 11/12/18 20:38 11/13/18 01:03 Bedside Glucose 118 144 140 172 Test 11/13/18 04:15 11/13/18 08:20 White Blood Count 10.7 Red Blood Count 3.06 L Hemoglobin 8.6 L Hematocrit 29.5 L Mean Corpuscular 96.4 Volume Mean Corpuscular 28.1 L Hemoglobin Mean Corpuscular 29.2 L Hemoglobin Concent Red Cell 15.7 H Distribution Width Platelet Count 385 Mean Platelet Volume 10.9 H Immature 1.800 H Granulocytes % Neutrophils % 75.9 Lymphocytes % 6.3 L Monocytes % 9.3 Eosinophils % 5.9 Basophils % 0.8 Nucleated Red Blood 0.0 Cells % Immature 0.190 H Granulocytes # Neutrophils # 8.1 H Lymphocytes # 0.7 L Monocytes # 1.0 H Eosinophils # 0.6 H Basophils # 0.1 Nucleated Red Blood 0.0 Cells # Sodium Level 137 Potassium Level 4.0 Chloride Level 86 L Carbon Dioxide Level 48 *H Anion Gap 3 L Blood Urea Nitrogen 30 H Creatinine 0.47 L Est Glomerular > 60 Filtrat Rate mL/min Glucose Level 145 Calcium Level 7.8 L Phosphorus Level 4.7 Magnesium Level 2.2 Bedside Glucose 132 Medications Medication Current Medications Acetaminophen (Tylenol Liquid) 650 mg Q4H PRN GTB MILD PAIN(1-3)OR ELEVATED TEMP Last administered on 11/05/18at 23:55; Admin Dose 650 MG; Start 10/09/18 at 14:00 Al Hydrox/Mg Hydrox/Simethicone (Mag-Al Plus) 15 ml Q6H PRN PO GASTROINTESTINAL UPSET Last administered on 10/17/18at 13:18; Admin Dose 15 ML; Start 10/09/18 at 14:00 Eye Lubricant (Artificial Tears Oph) 1 drop Q6H PRN BOTH EYES DRY EYES Last administered on 11/03/18at 09:33; Admin Dose 1 DROP; Start 10/09/18 at 14:00 Bisacodyl (Dulcolax Supp) 10 mg DAILY PRN [place] CONSTIPATION; Start 10/09/18 at 14:00 Clonidine (Catapres) 0.1 mg DAILY PRN GTB ELEVATED BLOOD PRESSURE; Start 10/09/18 at 14:00 Diltiazem HCl (Cardizem Iv) 5 mg Q4 PRN IV ELEVATED HEART RATE Last administered on 11/06/18 18:47; Admin Dose 5 MG; Start 10/09/18 at 14:00 Diphenhydramine HCl (Benadryl Liquid Cup) 25 mg Q6 PRN GTB ITCHING Last administered on 10/22/18 20:25; Admin Dose 25 MG; Start 10/09/18 at 14:00 Duloxetine HCl (Cymbalta) 30 mg DAILY PO Last administered on 11/12/18 08:58; Admin Dose 30 MG; Start 10/10/18 at 09:00 Gabapentin (Neurontin Liquid) 400 mg Q8 GTB Last administered on 11/13/18 05:46; Admin Dose 400 MG; Start 10/09/18 at 15:30 Hydralazine HCl (Apresoline) 10 mg Q4H PRN IV ELEVATED BLOOD PRESSURE; Start 10/09/18 at 14:00 Hydroxychloroquine Sulfate (Plaquenil) 200 mg BID PO Last administered on 11/12/18 20:41; Admin Dose 200 MG; Start 10/09/18 at 21:00 Diagnostic Test (Pha) (Accu-Chek) 1 ea 02 XX Last administered on 11/13/18 01:29; Admin Dose 1 EA; Start 10/10/18 at 02:00 Insulin Aspart (Novolog Insulin Pen) NOVOLOG *CUSTOM* ALGORITHM Q6H SC Last administered on 11/13/18 01:05; Admin Dose 1 UNIT; Start 10/09/18 at 14:00 Lactobacillus Acidophilus (Florajen3 Capsule) 1 each BID GTB Last administered on 11/12/18 20:42; Admin Dose 1 EACH; Start 10/09/18 at 21:00 Lansoprazole (Prevacid) 30 mg BID@,18 GTB Last administered on 11/13/18 05:46; Admin Dose 30 MG; Start 10/09/18 at 18:00 Levetiracetam (Keppra Liquid) 500 mg BID GTB Last administered on 11/12/18 20:42; Admin Dose 500 MG; Start 10/09/18 at 21:00 Magnesium Oxide (Mag-Ox 400) 400 mg BID GTB Last administered on 11/12/18 20:41; Admin Dose 400 MG; Start 10/09/18 at 21:00 Metoclopramide HCl (Reglan) 10 mg TID IV Last administered on 11/12/18at 20:42; Admin Dose 10 MG; Start 10/09/18 at 21:00 Miconazole Nitrate (Miconazole 2% Cr) 1 applic BID TOP Last administered on 11/12/18at 20:42; Admin Dose 1 APPLIC; Start 10/09/18 at 21:00 Miconazole Nitrate (Miconazole 2% Cr) 1 applic Q12 PRN TOP rash; Start 10/09/18 at 14:00 Ondansetron HCl (Zofran Inj) 4 mg Q4H PRN IV NAUSEA AND/OR VOMITING Last administered on 10/19/18at 16:37; Admin Dose 4 MG; Start 10/09/18 at 14:00 Polyethylene Glycol (Miralax) 17 gm DAILY PRN GTB CONSTIPATION; Start 10/09/18 at 14:00 Senna (Senokot) 2 tab Q8 PRN PO CONSTIPATION; Start 10/09/18 at 14:00 Trimethoprim/ Sulfamethoxazole (Bactrim Susp) 40 ml DAILY GTB Last administered on 11/12/18at 09:01; Admin Dose 40 ML; Start 10/10/18 at 09:00 Zolpidem Tartrate (Ambien) 5 mg HS PRN PO INSOMNIA Last administered on 11/03/18at 01:16; Admin Dose 5 MG; Start 10/09/18 at 14:00 Miscellaneous Information 1 ea NOTE XX ; Start 10/09/18 at 15:00 Glucose (Glutose) 15 gm Q15M PRN PO DECREASED GLUCOSE; Start 10/09/18 at 15:00 Glucose (Glutose) 22.5 gm Q15M PRN PO DECREASED GLUCOSE; Start 10/09/18 at 15:00 Dextrose (D50w Syringe) 25 ml Q15M PRN IV DECREASED GLUCOSE; Start 10/09/18 at 15:00 Dextrose (D50w Syringe) 50 ml Q15M PRN IV DECREASED GLUCOSE; Start 10/09/18 at 15:00 Glucagon (Glucagen) 1 mg Q15M PRN IM DECREASED GLUCOSE; Start 10/09/18 at 15:00 Glucose (Glutose) 15 gm Q15M PRN BUCCAL DECREASED GLUCOSE; Start 10/09/18 at 15 :00 Albuterol (Ventolin Hfa) 4 puff Q6H RESP THERAPY INH Last administered on 11/13/18 07:50; Admin Dose 4 PUFF; Start 10/10/18 at 02:00 Ipratropium [place] (Atrovent Hfa) 4 puff Q6H RESP THERAPY INH Last administered on 11/13/18 07:50; Admin Dose 4 PUFF; Start 10/10/18 at 02:00 Lorazepam (Ativan) 1 mg Q4H PRN GTB AGITATION/ANXIETY Last administered on 11/05/18 20:35; Admin Dose 1 MG; Start 10/14/18 at 13:00 Linagliptin (Tradjenta) 5 mg DAILY PO Last administered on 11/12/18 09:00; Admin Dose 5 MG; Start 10/16/18 at 10:30 Fentanyl (Duragesic 50 Mcg/Hr Patch) 1 patch Q72H TRANSDERM Last administered on 11/11/18 04:38; Admin Dose 1 PATCH; Start 10/17/18 at 20:30 Quetiapine Fumarate (Seroquel) 100 mg BID GTB Last administered on 11/12/18 20:41; Admin Dose 100 MG; Start 10/21/18 at 21:00 Calcium Carbonate (Ca Carbonate) 1,250 mg QID GTB Last administered on 11/12/18 20:42; Admin Dose 1,250 MG; Start 10/24/18 at 13:00 Metoprolol Tartrate (Lopressor) 5 mg Q4H PRN IV HR>110 Hold SBP<100 Last administered on 11/11/18 18:31; Admin Dose 5 MG; Start 10/28/18 at 12:30 Phenylephrine HCl 40 mg/Dextrose 250 ml @ 37.5 mls/hr TITRATE IV Last administered on 11/02/18 09:05; Admin Dose 11.25 MLS/HR; Start 11/01/18 at 13:30 IV Flush (NS 10 ml) 10 ml PRN PRN IV IV PROTOCOL; Start 11/01/18 at 16:30 Collagenase (Santyl) 1 applic DAILY TOP Last administered on 11/12/18 08:57; Admin Dose 1 APPLIC; Start 11/01/18 at 19:30 Norepinephrine 32 mg/Dextrose 250 ml @ 0.47 mls/hr TITRATE IV Last administered on 11/02/18 12:15; Admin Dose 0.47 MLS/HR; Start 11/02/18 at 11:30 Midodrine (Proamatine) 5 mg TID@,13,17 GTB Last administered on 11/08/18 12:53; Admin Dose 5 MG; Start 11/03/18 at 09:00; Status Hold Guaifenesin (Robitussin Liquid Cup) 100 mg Q4H PRN PO COUGH Last administered on 11/05/18 20:31; Admin Dose 100 MG; Start 11/03/18 at 12:00 Hydrocortisone (Cortef) 20 mg QAM PEG Last administered on 11/12/18 08:58; Admin Dose 20 MG; Start 11/04/18 at 09:00 Hydrocortisone (Cortef) 20 mg AC DINNER PEG Last administered on 11/12/18 17:33; Admin Dose 20 MG; Start 11/04/18 at 17:05 Hydrocortisone (Cortef) 20 mg HS PEG Last administered on 11/12/18 20:41; Admin Dose 20 MG; Start 11/03/18 at 22:45 Calcitriol (Rocaltrol) 1.5 mcg BID PO Last administered on 11/12/18 20:41; Admin Dose 1.5 MCG; Start 11/07/18 at 21:00 Lorazepam (Ativan) 1 mg Q4 GTB Last administered on 11/13/18 04:11; Admin Dose 1 MG; Start 11/09/18 at 14:00 Carvedilol (Coreg) 6.25 mg BID PO Last administered on 11/12/18 20:57; Admin Dose 6.25 MG; Start 11/09/18 at 21:00 Benazepril HCl (Lotensin) 10 mg DAILY PO Last administered on 11/12/18 08:59; Admin Dose 10 MG; Start 11/10/18 at 09:00 Digoxin (Digoxin) 0.25 mg DAILY@13 PO Last administered on 11/12/18 13:28; Admin Dose 0.25 MG; Start 11/11/18 at 13:00 Furosemide (Lasix) 20 mg DAILY IV Last administered on 11/12/18 08:57; Admin Dose 20 MG; Start 11/10/18 at 12:30 Hydromorphone HCl (Dilaudid) 3 mg Q4H PRN PO MODERATE PAIN LEVEL 7-10 Last administered on 11/13/18at 02:58; Admin Dose 3 MG; Start 11/10/18 at 22:00 Cefepime HCl 50 ml @ 100 mls/hr Q12 IVPB Last administered on 11/12/18at 20:42; Admin Dose 100 MLS/HR; Start 11/10/18 at 23:30 KEV ISSA MD Nov 13, 2018 08:29
[2018-11-13] MEDS: CEFEPIME 1GM/50 ML (PMX) 50 ML IVPB SCH ×2 (08:57→21:00)
[2018-11-13] MEDS: TRIMETHOPRIM/SULFAMETHOX (PO SYG) GTB SCH (08:58)
[2018-11-13] MEDS: HYDROCORTISONE 20 MG TAB PEG SCH ×3 (08:59→20:22)
[2018-11-13] MEDS: DULOXETINE 30 MG CAP DR PO SCH (08:59)
[2018-11-13] MEDS: QUETIAPINE 100 MG TAB GTB SCH ×2 (08:59→20:22)
[2018-11-13] MEDS: L ACIDOPHIL/B LACTIS/B LONGUM CAPSULE GTB SCH ×2 (08:59→20:21)
[2018-11-13] MEDS: CALCITRIOL 0.5 MCG CAPSULE PO SCH ×2 (09:00→20:21)
[2018-11-13] MEDS: LINAGLIPTIN 5 MG TABLET PO SCH (09:00)
[2018-11-13] MEDS: HYDROXYCHLOROQUINE 200 MG TAB PO SCH ×2 (09:00→20:22)
[2018-11-13] MEDS: MAGNESIUM OXIDE 400 MG TAB GTB SCH ×2 (09:00→20:22)
[2018-11-13] MEDS: BENAZEPRIL 10 MG TAB PO SCH (09:01)
[2018-11-13] MEDS: FUROSEMIDE 20 MG INJ IV SCH (09:02)
[2018-11-13] MEDS: GUAIFENESIN 20 MG/ML 5ML CUP PO PRN ×2 (09:02→17:58)
[2018-11-13] MEDS: CA CARBONATE (250 MG/ML) 5ML CUP GTB SCH ×4 (09:02→20:22)
[2018-11-13] MEDS: METOCLOPRAMIDE 10 MG INJ IV SCH ×3 (09:02→20:21)
[2018-11-13] MEDS: LEVETIRACETAM (100 MG/ML) 5ML CUP GTB SCH ×2 (09:02→20:21)
--- NOTE | 2018-11-13 09:22 | CONS ---
Assessment/Plan Assessment/Plan Assessment/Plan (Daily) Ventilator setting; AC of 20, pressure controlled, PEEP of 8, 85% FiO2. Assessment and recommendations; 1. Patient with history of ARDS and VDR F admitted for worsening hypoxemia status post treatment for presumed pneumonia, gram-negative nimco isolated from sputum again, patient resumed back on systemic antibiotic. 2. History of incomplete quadriplegia. 3. History of Aspergillus pneumonia. 4. Adrenal insufficiency. 5. History of HSV esophagitis. 6. Worsening hypoxemia 7. Depression. 8. Anxiety. 9. Anemia. 10. Peripheral neuropathy. Continue current supportive care. Gram-negative nimco isolated from sputum likely is airway colonization. Prognosis appears extremely poor. Patient showing a significant downward clinical course. Comfort care measures and hospice is recommended. Consultation Date/Type/Reason Admit Date/Time Oct 09, 2018 at 12:16 Initial Consult Date 10/12/18 Type of Consult Pulmonary/critical care Patient's condition is stable. Remains completely awake and alert. Has remained hemodynamically stable. Patient also has been switched over to volume control ventilation from pressure-controlled mode. General exam; middle-aged male, on ventilator via tracheostomy, awake and alert. Watching television. Currently in no distress. Area Requesting Provider: NOLA VIDAL MD Date/Time of Note DATE: 11/13/18 TIME: 09:17 24 HR Interval Summary Free Text/Dictation Patient's condition remains critical in the sense that still requiring high FiO2 on pressure control mode of ventilation. General exam; middle-aged male, on ventilator via tracheostomy, awake and responsive. Currently in no distress. Appears mildly anxious. Exam/Review of Systems Exam Vitals Vital Signs Date Temp Pulse Resp B/P (MAP) Pulse Ox O2 O2 Flow FiO2 Time Delivery Rate 11/13/18 99.2 08:24 11/13/18 109 24 120/74 Mechanical 08:00 (89) Ventilator 11/13/18 98 06:00 11/13/18 85 05:26 Intake and Output 11/12/18 11/12/18 11/13/18 1515:00 23:00 07:00 IntakeIntake Total 420 ml 570 ml 520 ml OutputOutput Total 400 ml 750 ml 260 ml BalanceBalance 20 ml -180 ml 260 ml Exam H EENT exam; supple neck, no JVD. No lymphadenopathy. Midline trachea. No thyromegaly. Tracheostomy placed. Patient is edentulous. Chest exam; bilateral mild crackles. S1-S2 audible, no murmurs. Regular rhythm . Abdomen exam; soft, no organomegaly. G-tube in place. Bowel sounds audible. Extremity exam; no peripheral edema clubbing. IMPLEMENTATION DIRECTOR exam; patient awake responsive appropriately, exhibiting stable incomplete quadriplegia. Results Result Diagram: 11/13/18 0415 11/13/18 0415 Results 24hrs Laboratory Tests Test 11/12/18 13:33 11/12/18 20:38 11/13/18 01:03 11/13/18 04:15 Bedside Glucose 144 140 172 White Blood Count 10.7 Red Blood Count 3.06 L Hemoglobin 8.6 L Hematocrit 29.5 L Mean Corpuscular 96.4 Volume Mean Corpuscular 28.1 L Hemoglobin Mean Corpuscular 29.2 L Hemoglobin Concent Red Cell 15.7 H Distribution Width Platelet Count 385 Mean Platelet Volume 10.9 H Immature 1.800 H Granulocytes % Neutrophils % 75.9 Lymphocytes % 6.3 L Monocytes % 9.3 Eosinophils % 5.9 Basophils % 0.8 Nucleated Red Blood 0.0 Cells % Immature 0.190 H Granulocytes # Neutrophils # 8.1 H Lymphocytes # 0.7 L Monocytes # 1.0 H Eosinophils # 0.6 H Basophils # 0.1 Nucleated Red Blood 0.0 Cells # Sodium Level 137 Potassium Level 4.0 Chloride Level 86 L Carbon Dioxide Level 48 *H Anion Gap 3 L Blood Urea Nitrogen 30 H Creatinine 0.47 L Est Glomerular > 60 Filtrat Rate mL/min Glucose Level 145 Calcium Level 7.8 L Phosphorus Level 4.7 Magnesium Level 2.2 Test 11/13/18 08:20 Bedside Glucose 132 Medications Medication Current Medications Acetaminophen (Tylenol Liquid) 650 mg Q4H PRN GTB MILD PAIN(1-3)OR ELEVATED TEMP Last administered on 11/05/18at 23:55; Admin Dose 650 MG; Start 10/09/18 at 14:00 Al Hydrox/Mg Hydrox/Simethicone (Mag-Al Plus) 15 ml Q6H PRN PO GASTROINTESTINAL UPSET Last administered on 10/17/18at 13:18; Admin Dose 15 ML; Start 10/09/18 at 14:00 Eye Lubricant (Artificial Tears Oph) 1 drop Q6H PRN BOTH EYES DRY EYES Last administered on 11/03/18 09:33; Admin Dose 1 DROP; Start 10/09/18 at 14:00 Bisacodyl (Dulcolax Supp) 10 mg DAILY PRN [place] CONSTIPATION; Start 10/09/18 at 14:00 Clonidine (Catapres) 0.1 mg DAILY PRN GTB ELEVATED BLOOD PRESSURE; Start 10/09/18 at 14:00 Diltiazem HCl (Cardizem Iv) 5 mg Q4 PRN IV ELEVATED HEART RATE Last administered on 11/06/18 18:47; Admin Dose 5 MG; Start 10/09/18 at 14:00 Diphenhydramine HCl (Benadryl Liquid Cup) 25 mg Q6 PRN GTB ITCHING Last administered on 10/22/18 20:25; Admin Dose 25 MG; Start 10/09/18 at 14:00 Duloxetine HCl (Cymbalta) 30 mg DAILY PO Last administered on 11/12/18 08:58; Admin Dose 30 MG; Start 10/10/18 at 09:00 Gabapentin (Neurontin Liquid) 400 mg Q8 GTB Last administered on 11/13/18 05:46; Admin Dose 400 MG; Start 10/09/18 at 15:30 Hydralazine HCl (Apresoline) 10 mg Q4H PRN IV ELEVATED BLOOD PRESSURE; Start 10/09/18 at 14:00 Hydroxychloroquine Sulfate (Plaquenil) 200 mg BID PO Last administered on 11/12/18 20:41; Admin Dose 200 MG; Start 10/09/18 at 21:00 Diagnostic Test (Pha) (Accu-Chek) 1 ea 02 XX Last administered on 11/13/18 0 1:29; Admin Dose 1 EA; Start 10/10/18 at 02:00 Insulin Aspart (Novolog Insulin Pen) NOVOLOG *CUSTOM* ALGORITHM Q6H SC Last administered on 11/13/18 01:05; Admin Dose 1 UNIT; Start 10/09/18 at 14:00 Lactobacillus Acidophilus (Florajen3 Capsule) 1 each BID GTB Last administered on 11/12/18 20:42; Admin Dose 1 EACH; Start 10/09/18 at 21:00 Lansoprazole (Prevacid) 30 mg BID@06,18 GTB Last administered on 11/13/18 05:46; Admin Dose 30 MG; Start 10/09/18 at 18:00 Levetiracetam (Keppra Liquid) 500 mg BID GTB Last administered on 11/12/18 20:42; Admin Dose 500 MG; Start 10/09/18 at 21:00 Magnesium Oxide (Mag-Ox 400) 400 mg BID GTB Last administered on 11/12/18 20:41; Admin Dose 400 MG; Start 10/09/18 at 21:00 Metoclopramide HCl (Reglan) 10 mg TID IV Last administered on 11/12/18 20:42; Admin Dose 10 MG; Start 10/09/18 at 21:00 Miconazole Nitrate (Miconazole 2% Cr) 1 applic BID TOP Last administered on 11/12/18 20:42; Admin Dose 1 APPLIC; Start 10/09/18 at 21:00 Miconazole Nitrate (Miconazole 2% Cr) 1 applic Q12 PRN TOP rash; Start 10/09/18 at 14:00 Ondansetron HCl (Zofran Inj) 4 mg Q4H PRN IV NAUSEA AND/OR VOMITING Last administered on 10/19/18 16:37; Admin Dose 4 MG; Start 10/09/18 at 14:00 Polyethylene Glycol (Miralax) 17 gm DAILY PRN GTB CONSTIPATION; Start 10/09/18 at 14:00 Senna (Senokot) 2 tab Q8 PRN PO CONSTIPATION; Start 10/09/18 at 14:00 Trimethoprim/ Sulfamethoxazole (Bactrim Susp) 40 ml DAILY GTB Last administered on 11/12/18 09:01; Admin Dose 40 ML; Start 10/10/18 at 09:00 Zolpidem Tartrate (Ambien) 5 mg HS PRN PO INSOMNIA Last administered on 01:16; Admin Dose 5 MG; Start 10/09/18 at 14:00 Miscellaneous Information 1 ea NOTE XX ; Start 10/09/18 at 15:00 Glucose (Glutose) 15 gm Q15M PRN PO DECREASED GLUCOSE; Start 10/09/18 at 15:00 Glucose (Glutose) 22.5 gm Q15M PRN PO DECREASED GLUCOSE; Start 10/09/18 at 15:00 Dextrose (D50w Syringe) 25 ml Q15M PRN IV DECREASED GLUCOSE; Start 10/09/18 at 15:00 Dextrose (D50w Syringe) 50 ml Q15M PRN IV DECREASED GLUCOSE; Start 10/09/18 at 15:00 Glucagon (Glucagen) 1 mg Q15M PRN IM DECREASED GLUCOSE; Start 10/09/18 at 15:00 Glucose (Glutose) 15 gm Q15M PRN BUCCAL DECREASED GLUCOSE; Start 10/09/18 at 15:00 Albuterol (Ventolin Hfa) 4 puff Q6H RESP THERAPY INH Last administered on 11/13/18 07:50; Admin Dose 4 PUFF; Start 10/10/18 at 02:00 Ipratropium [place] (Atrovent Hfa) 4 puff Q6H RESP THERAPY INH Last administered on 11/13/18 07:50; Admin Dose 4 PUFF; Start 10/10/18 at 02:00 Lorazepam (Ativan) 1 mg Q4H PRN GTB AGITATION/ANXIETY Last administered on 11/05/18 20:35; Admin Dose 1 MG; Start 10/14/18 at 13:00 Linagliptin (Tradjenta) 5 mg DAILY PO Last administered on 11/12/18 09:00; Admin Dose 5 MG; Start 10/16/18 at 10:30 Fentanyl (Duragesic 50 Mcg/Hr Patch) 1 patch Q72H TRANSDERM Last administered on 11/11/18 04:38; Admin Dose 1 PATCH; Start 10/17/18 at 20:30 Quetiapine Fumarate (Seroquel) 100 mg BID GTB Last administered on 11/12/18 20:41; Admin Dose 100 MG; Start 10/21/18 at 21:00 Calcium Carbonate (Ca Carbonate) 1,250 mg QID GTB Last administered on 11/12/18 20:42; Admin Dose 1,250 MG; Start 10/24/18 at 13:00 Metoprolol Tartrate (Lopressor) 5 mg Q4H PRN IV HR>110 Hold SBP<100 Last administered on 11/11/18 18:31; Admin Dose 5 MG; Start 10/28/18 at 12:30 Phenylephrine HCl 40 mg/Dextrose 250 ml @ 37.5 mls/hr TITRATE IV Last administered on 11/02/18 09:05; Admin Dose 11.25 MLS/HR; Start 11/01/18 at 13:30 IV Flush (NS 10 ml) 10 ml PRN PRN IV IV PROTOCOL; Start 11/01/18 at 16:30 Collagenase (Santyl) 1 applic DAILY TOP Last administered on 11/12/18 08:57; Admin Dose 1 APPLIC; Start 11/01/18 at 19:30 Norepinephrine 32 mg/Dextrose 250 ml @ 0.47 mls/hr TITRATE IV Last administered on 11/02/18 12:15; Admin Dose 0.47 MLS/HR; Start 11/02/18 at 11:30 Midodrine (Proamatine) 5 mg TID@09,13,17 GTB Last administered on 11/08/18 12:53; Admin Dose 5 MG; Start 11/03/18 at 09:00; Status Hold Guaifenesin (Robitussin Liquid Cup) 100 mg Q4H PRN PO COUGH Last administered on 11/05/18 20:31; Admin Dose 100 MG; Start 11/03/18 at 12:00 Hydrocortisone (Cortef) 20 mg QAM PEG Last administered on 11/12/18 08:58; Admin Dose 20 MG; Start 11/04/18 at 09:00 Hydrocortisone (Cortef) 20 mg AC DINNER PEG Last administered on 11/12/18 17:33; Admin Dose 20 MG; Start 11/04/18 at 17:05 Hydrocortisone (Cortef) 20 mg HS PEG Last administered on 11/12/18 20:41; Admin Dose 20 MG; Start 11/03/18 at 22:45 Calcitriol (Rocaltrol) 1.5 mcg BID PO Last administered on 11/12/18 20:41; Admin Dose 1.5 MCG; Start 11/07/18 at 21:00 Lorazepam (Ativan) 1 mg Q4 GTB Last administered on 11/13/18 04:11; Admin Dose 1 MG; Start 11/09/18 at 14:00 Carvedilol (Coreg) 6.25 mg BID PO Last administered on 11/12/18 20:57; Admin Dose 6.25 MG; Start 11/09/18 at 21:00 Benazepril HCl (Lotensin) 10 mg DAILY PO Last administered on 11/12/18 08:59; Admin Dose 10 MG; Start 11/10/18 at 09:00 Digoxin (Digoxin) 0.25 mg DAILY@13 PO Last administered on 11/12/18 13:28; Admin Dose 0.25 MG; Start 11/11/18 at 13:00 Furosemide (Lasix) 20 mg DAILY IV Last administered on 11/12/18 08:57; Admin Dose 20 MG; Start 11/10/18 at 12:30 Hydromorphone HCl (Dilaudid) 3 mg Q4H PRN PO MODERATE PAIN LEVEL 7-10 Last administered on 11/13/18 02:58; Admin Dose 3 MG; Start 11/10/18 at 22:00 Cefepime HCl 50 ml @ 100 mls/hr Q12 IVPB Last administered on 11/12/18 20:42; Admin Dose 100 MLS/HR; Start 11/10/18 at 23:30 PILAR BERGER Nov 13, 2018 09:22
--- NOTE | 2018-11-13 12:19 | CONS ---
Consult Date/Type/Reason Admit Date/Time Oct 09, 2018 at 12:16 Initial Consult Date 10/09/18 Type of Consultation: Pulm/CCM Requesting Provider: NOLA VIDAL MD Date/Time of Note DATE: 11/13/18 TIME: 12:17 Subjective NO acute events - BP on low side - will monitor now - pt comfortable. ROS: No fever, no chills, no nausea, no vomiting, no diarrhea/constipation No recent weight changes No chest pain, no PND, no orthopnea - chronic SOB No dizziness, blurred vision No thirst, no heat or cold intolerance Objective Vitals Vital Signs Date Temp Pulse Resp B/P (MAP) Pulse Ox O2 O2 Flow FiO2 Time Delivery Rate 11/13/18 97 20 96 85 11:50 11/13/18 82/51 (61) 10:01 11/13/18 Mechanical 10:00 Ventilator 11/13/18 99.2 08:24 Intake and Output 11/12/18 11/12/18 11/13/18 1515:00 23:00 07:00 IntakeIntake Total 420 ml 570 ml 520 ml OutputOutput Total 400 ml 750 ml 260 ml BalanceBalance 20 ml -180 ml 260 ml Exam General: WN/WD/NAD, AOx anxious HEENT: Unicetric/atraumatic/EOMI ( follow commands) NECK: trach Lymph: no lymphadenopathy HEART: regular with no S3, II/ systolic murmur at apex, tachy LUNGS: Coarse sounds ABD: soft, NT, ND, +BS : Intact Neuro: non focal SKIN: chronic changes - WOUNDS EXT: trace edema Results/Medications Result Diagram: 11/13/18 0415 11/13/18 0415 Results 24 hrs Laboratory Tests Test 11/12/18 13:33 11/12/18 20:38 11/13/18 01:03 11/13/18 04:15 Bedside Glucose 144 140 172 White Blood Count 10.7 Red Blood Count 3.06 L Hemoglobin 8.6 L Hematocrit 29.5 L Mean Corpuscular 96.4 Volume Mean Corpuscular 28.1 L Hemoglobin Mean Corpuscular 29.2 L Hemoglobin Concent Red Cell 15.7 H Distribution Width Platelet Count 385 Mean Platelet Volume 10.9 H Immature 1.800 H Granulocytes % Neutrophils % 75.9 Lymphocytes % 6.3 L Monocytes % 9.3 Eosinophils % 5.9 Basophils % 0.8 Nucleated Red Blood 0.0 Cells % Immature 0.190 H Granulocytes # Neutrophils # 8.1 H Lymphocytes # 0.7 L Monocytes # 1.0 H Eosinophils # 0.6 H Basophils # 0.1 Nucleated Red Blood 0.0 Cells # Sodium Level 137 Potassium Level 4.0 Chloride Level 86 L Carbon Dioxide Level 48 *H Anion Gap 3 L Blood Urea Nitrogen 30 H Creatinine 0.47 L Est Glomerular > 60 Filtrat Rate mL/min Glucose Level 145 Calcium Level 7.8 L Phosphorus Level 4.7 Magnesium Level 2.2 Test 11/13/18 08:20 Bedside Glucose 132 Medications Current Medications Acetaminophen (Tylenol Liquid) 650 mg Q4H PRN GTB MILD PAIN(1-3)OR ELEVATED TEMP Last administered on 11/05/18 23:55; Admin Dose 650 MG; Start 10/09/18 at 14:00 Al Hydrox/Mg Hydrox/Simethicone (Mag-Al Plus) 15 ml Q6H PRN PO GASTROINTESTINAL UPSET Last administered on 10/17/18 13:18; Admin Dose 15 ML; Start 10/09/18 at 14:00 Eye Lubricant (Artificial Tears Oph) 1 drop Q6H PRN BOTH EYES DRY EYES Last administered on 11/03/18 09:33; Admin Dose 1 DROP; Start 10/09/18 at 14:00 Bisacodyl (Dulcolax Supp) 10 mg DAILY PRN [place] CONSTIPATION; Start 10/09/18 at 14:00 Clonidine (Catapres) 0.1 mg DAILY PRN GTB ELEVATED BLOOD PRESSURE; Start 10/09/18 at 14:00 Diltiazem HCl (Cardizem Iv) 5 mg Q4 PRN IV ELEVATED HEART RATE Last administered on 11/06/18 18:47; Admin Dose 5 MG; Start 10/09/18 at 14:00 Diphenhydramine HCl (Benadryl Liquid Cup) 25 mg Q6 PRN GTB ITCHING Last administered on 10/22/18 20:25; Admin Dose 25 MG; Start 10/09/18 at 14:00 Duloxetine HCl (Cymbalta) 30 mg DAILY PO Last administered on 11/13/18 08:59; Admin Dose 30 MG; Start 10/10/18 at 09:00 Gabapentin (Neurontin Liquid) 400 mg Q8 GTB Last administered on 11/13/18 05:46; Admin Dose 400 MG; Start 10/09/18 at 15:30 Hydralazine HCl (Apresoline) 10 mg Q4H PRN IV ELEVATED BLOOD PRESSURE; Start 10/09/18 at 14:00 Hydroxychloroquine Sulfate (Plaquenil) 200 mg BID PO Last administered on 11/13/18 09:00; Admin Dose 200 MG; Start 10/09/18 at 21:00 Diagnostic Test (Pha) (Accu-Chek) 1 ea 02 XX Last administered on 11/13/18 01:29; Admin Dose 1 EA; Start 10/10/18 at 02:00 Insulin Aspart (Novolog Insulin Pen) NOVOLOG *CUSTOM* ALGORITHM Q6H SC Last administered on 11/13/18 01:05; Admin Dose 1 UNIT; Start 10/09/18 at 14:00 Lactobacillus Acidophilus (Florajen3 Capsule) 1 each BID GTB Last administered on 11/13/18 08:59; Admin Dose 1 EACH; Start 10/09/18 at 21:00 Lansoprazole (Prevacid) 30 mg BID@06,18 GTB Last administered on 11/13/18 05:46; Admin Dose 30 MG; Start 10/09/18 at 18:00 Levetiracetam (Keppra Liquid) 500 mg BID GTB Last administered on 11/13/18 09:02; Admin Dose 500 MG; Start 10/09/18 at 21:00 Magnesium Oxide (Mag-Ox 400) 400 mg BID GTB Last administered on 11/13/18 09:00; Admin Dose 400 MG; Start 10/09/18 at 21:00 Metoclopramide HCl (Reglan) 10 mg TID IV Last administered on 11/13/18 09:02; Admin Dose 10 MG; Start 10/09/18 at 21:00 Miconazole Nitrate (Miconazole 2% Cr) 1 applic BID TOP Last administered on 11/12/18 20:42; Admin Dose 1 APPLIC; Start 10/09/18 at 21:00 Miconazole Nitrate (Miconazole 2% Cr) 1 applic Q12 PRN TOP rash; Start 10/09/18 at 14:00 Ondansetron HCl (Zofran Inj) 4 mg Q4H PRN IV NAUSEA AND/OR VOMITING Last administered on 10/19/18 16:37; Admin Dose 4 MG; Start 10/09/18 at 14:00 Polyethylene Glycol (Miralax) 17 gm DAILY PRN GTB CONSTIPATION; Start 10/09/18 at 14:00 Senna (Senokot) 2 tab Q8 PRN PO CONSTIPATION; Start 10/09/18 at 14:00 Trimethoprim/ Sulfamethoxazole (Bactrim Susp) 40 ml DAILY GTB Last administered on 11/13/18at 08:58; Admin Dose 40 ML; Start 10/10/18 at 09:00 Zolpidem Tartrate (Ambien) 5 mg HS PRN PO INSOMNIA Last administered on 10/15 01:16; Admin Dose 5 MG; Start 10/09/18 at 14:00 Miscellaneous Information 1 ea NOTE XX ; Start 10/09/18 at 15:00 Glucose (Glutose) 15 gm Q15M PRN PO DECREASED GLUCOSE; Start 10/09/18 at 15:00 Glucose (Glutose) 22.5 gm Q15M PRN PO DECREASED GLUCOSE; Start 10/09/18 at 15:00 Dextrose (D50w Syringe) 25 ml Q15M PRN IV DECREASED GLUCOSE; Start 10/09/18 at 15:00 Dextrose (D50w Syringe) 50 ml Q15M PRN IV DECREASED GLUCOSE; Start 10/09/18 at 15:00 Glucagon (Glucagen) 1 mg Q15M PRN IM DECREASED GLUCOSE; Start 10/09/18 at 15:00 Glucose (Glutose) 15 gm Q15M PRN BUCCAL DECREASED GLUCOSE; Start 10/09/18 at 15:00 Albuterol (Ventolin Hfa) 4 puff Q6H RESP THERAPY INH Last administered on 11/13/18at 07:50; Admin Dose 4 PUFF; Start 10/10/18 at 02:00 Ipratropium [place] (Atrovent Hfa) 4 puff Q6H RESP THERAPY INH Last administered on 11/13/18at 07:50; Admin Dose 4 PUFF; Start 10/10/18 at 02:00 Lorazepam (Ativan) 1 mg Q4H PRN GTB AGITATION/ANXIETY Last administered on 11/05/18at 20:35; Admin Dose 1 MG; Start 10/14/18 at 13:00 Linagliptin (Tradjenta) 5 mg DAILY PO Last administered on 11/13/18 09:00; Admin Dose 5 MG; Start 10/16/18 at 10:30 Fentanyl (Duragesic 50 Mcg/Hr Patch) 1 patch Q72H TRANSDERM Last administered on 11/11/18 04:38; Admin Dose 1 PATCH; Start 10/17/18 at 20:30 Quetiapine Fumarate (Seroquel) 100 mg BID GTB Last administered on 11/13/18 08:59; Admin Dose 100 MG; Start 10/21/18 at 21:00 Calcium Carbonate (Ca Carbonate) 1,250 mg QID GTB Last administered on 11/13/18 t 09:02; Admin Dose 1,250 MG; Start 10/24/18 at 13:00 Metoprolol Tartrate (Lopressor) 5 mg Q4H PRN IV HR>110 Hold SBP<100 Last administered on 11/11/18 18:31; Admin Dose 5 MG; Start 10/28/18 at 12:30 Phenylephrine HCl 40 mg/Dextrose 250 ml @ 37.5 mls/hr TITRATE IV Last administered on 11/02/18 09:05; Admin Dose 11.25 MLS/HR; Start 11/01/18 at 13:30 IV Flush (NS 10 ml) 10 ml PRN PRN IV IV PROTOCOL; Start 11/01/18 at 16:30 Collagenase (Santyl) 1 applic DAILY TOP Last administered on 11/12/18 08:57; Admin Dose 1 APPLIC; Start 11/01/18 at 19:30 Norepinephrine 32 mg/Dextrose 250 ml @ 0.47 mls/hr TITRATE IV Last administered on 11/02/18 12:15; Admin Dose 0.47 MLS/HR; Start 11/02/18 at 11:30 Midodrine (Proamatine) 5 mg TID@09,13,17 GTB Last administered on 11/08/18 12:53; Admin Dose 5 MG; Start 11/03/18 at 09:00; Status Hold Guaifenesin (Robitussin Liquid Cup) 100 mg Q4H PRN PO COUGH Last administered on 11/13/18 09:02; Admin Dose 100 MG; Start 11/03/18 at 12:00 Hydrocortisone (Cortef) 20 mg QAM PEG Last administered on 11/13/18 08:59; Admin Dose 20 MG; Start 11/04/18 at 09:00 Hydrocortisone (Cortef) 20 mg AC DINNER PEG Last administered on 11/12/18 17:33; Admin Dose 20 MG; Start 11/04/18 at 17:05 Hydrocortisone (Cortef) 20 mg HS PEG Last administered on 11/12/18 20:41; Admin Dose 20 MG; Start 11/03/18 at 22:45 Calcitriol (Rocaltrol) 1.5 mcg BID PO Last administered on 11/13/18 09:00; Admin Dose 1.5 MCG; Start 11/07/18 at 21:00 Lorazepam (Ativan) 1 mg Q4 GTB Last administered on 11/13/18 09:02; Admin Dose 1 MG; Start 11/09/18 at 14:00 Carvedilol (Coreg) 6.25 mg BID PO Last administered on 11/13/18 09:01; Admin Dose 6.25 MG; Start 11/09/18 at 21:00 Benazepril HCl (Lotensin) 10 mg DAILY PO Last administered on 11/13/18 09:01; Admin Dose 10 MG; Start 11/10/18 at 09:00 Digoxin (Digoxin) 0.25 mg DAILY@13 PO Last administered on 11/12/18 13:28; Adm in Dose 0.25 MG; Start 11/11/18 at 13:00 Furosemide (Lasix) 20 mg DAILY IV Last administered on 11/13/18 09:02; Admin Dose 20 MG; Start 11/10/18 at 12:30 Hydromorphone HCl (Dilaudid) 3 mg Q4H PRN PO MODERATE PAIN LEVEL 7-10 Last administered on 11/13/18 08:59; Admin Dose 3 MG; Start 11/10/18 at 22:00 Cefepime HCl 50 ml @ 100 mls/hr Q12 IVPB Last administered on 11/13/18 08:57; Admin Dose 100 MLS/HR; Start 11/10/18 at 23:30 Assessment/Plan Hospital Course (Demo Recall) 1. Tachycardia at this time in the setting of fevers and respiratory distress, most consistent with sinus tachycardia likely driving this process - better now, con't supportive Rx and pain management- con't anxiety Rx. Con;t supportive RX. Rate controlled at rest. Keep euvolemic as tolerated. Labile rate - con;t supportive rX . Overall unchanged. Con't resp Rx. NOw with borderline BP - no feer, will monitor closely in ICU. 2. Hypertension with borderline hypotension at this time. -still borderline Hotn - no focal symptoms. Will monitor now. In good range. STABLE. 3. Abnormal electrocardiogram at baseline.Sinus tach. OK to hydrate. Euvolemic now. 4. Chronic respiratory failure, status post tracheostomy.-weaning vent support - con't resp Rx. Con;t resp Rx. Pulmonary follows. Pulmonary follows. 5. Dysphagia, status post G-tube. 6. Quadriplegia- skin care in place. NO change. Skin care. 7. Renal insufficiency, on steroids- Cr 0.47 now. Stable. Good urine output no w. Good urine output. Resolved. 8. Chronic obstructive pulmonary disease - con't resp Rx per pulmonary team. On vent Can not wean. .On meds. 9. Rheumatoid arthritis. 10. Chronic kidney disease- better now. 11. Diabetes mellitus- on meds. 12. Anemia - of chronic Dz, ar 9.9 now H/H - no bleeding- trending down to 8.8 VANESSA COOPER MD Nov 13, 2018 12:19
[2018-11-13] MEDS: DIGOXIN 0.25 MG TAB PO SCH (14:00)
[2018-11-13] MEDS: MICONAZOLE 2% 30 GM CR TOP SCH ×2 (14:21→20:23)
[2018-11-13] MEDS: COLLAGENASE 5 GM (UD JAR) TOP SCH (14:22)
[2018-11-13] MEDS: BALSAM PERU/CASTOR OIL 60 GM TUBE TOP SCH ×2 (14:22→20:23)
--- NOTE | 2018-11-13 15:11 | PN ---
Date/Time of Note Date/Time of Note DATE: 11/13/18 TIME: 15:08 Assessment/Plan VTE Prophylaxis Risk score (from [facility])>0 risk: 7 SCD applied (from [facility]): Yes SCD contraindicated: other Pharmacological prophylaxis: other Pharm contraindication: other Lines/Catheters IV Catheter Type (from [facility]): PICC Line Central line still needed: Yes Urinary Cath still in place: No Assessment/Plan Assessment/Plan -Acute respiratory failure, continue ventilatory support. Dr. Ricci is following in pulmonology consultation. -Sepsis secondary to pneumonia. Continue antibiotics. Patient is currently on vancomycin and meropenem. Dr. Siobhan gomez is following in infection disease consultation. -Healthcare associated pneumonia -Metabolic acidosis, status post bicarb, resolving. -Hyperkalemia, status post Kayexalate, resolved. -Acute kidney injury on chronic kidney disease. Dr. Pollock is following patient in nephrology consultation. -Abdominal distention most likely secondary to constipation, resolving. Dr. Duong is following in gastroenterology consultation. -Diabetes mellitus with peripheral neuropathy. Continue Lantus and NovoLog. -Preserved ejection fraction -Hypertension -Anemia of chronic disease -Depression -Hx of Left ankle abscess, status post left ankle incision and drainage, repair of anterior talofibular ligament and application of left posterior splint by Dr. Xavier on 09/16/18. Completed treatment with vancomycin for MRSA infection. Critical care time spent is 30 minutes. Further recommendations based on clinical course. Plan of care discussed with Dr. Rosales. Result Diagram: 11/13/18 0415 11/13/18 0415 Results 24hrs Laboratory Tests Test 11/12/18 20:38 11/13/18 01:03 11/13/18 04:15 11/13/18 08:20 Bedside Glucose 140 172 132 White Blood Count 10.7 Red Blood Count 3.06 L Hemoglobin 8.6 L Hematocrit 29.5 L Mean Corpuscular 96.4 Volume Mean Corpuscular 28.1 L Hemoglobin Mean Corpuscular 29.2 L Hemoglobin Concent Red Cell 15.7 H Distribution Width Platelet Count 385 Mean Platelet Volume 10.9 H Immature 1.800 H Granulocytes % Neutrophils % 75.9 Lymphocytes % 6.3 L Monocytes % 9.3 Eosinophils % 5.9 Basophils % 0.8 Nucleated Red Blood 0.0 Cells % Immature 0.190 H Granulocytes # Neutrophils # 8.1 H Lymphocytes # 0.7 L Monocytes # 1.0 H Eosinophils # 0.6 H Basophils # 0.1 Nucleated Red Blood 0.0 Cells # Sodium Level 137 Potassium Level 4.0 Chloride Level 86 L Carbon Dioxide Level 48 *H Anion Gap 3 L Blood Urea Nitrogen 30 H Creatinine 0.47 L Est Glomerular > 60 Filtrat Rate mL/min Glucose Level 145 Calcium Level 7.8 L Phosphorus Level 4.7 Magnesium Level 2.2 Test 11/13/18 14:02 Bedside Glucose 131 Subjective 24 Hr Interval Summary Free Text/Dictation - NAD -FIO2 85 % - No agitation noted - no new events reported overnight dw staff Subjective hx not possible: pt non-verbal, pt critical status Constitutional: requiring O2 Exam/Review of Systems Exam Vitals Vital Signs Date Temp Pulse Resp B/P (MAP) Pulse Ox O2 O2 Flow FiO2 Time Delivery Rate 11/13/18 98.8 100 21 96/60 (72) 97 Mechanical 14:00 Ventilator 11/13/18 85 11:50 Intake and Output 11/12/18 11/12/18 11/13/18 1515:00 23:00 07:00 IntakeIntake Total 420 ml 570 ml 520 ml OutputOutput Total 400 ml 750 ml 260 ml BalanceBalance 20 ml -180 ml 260 ml Constitutional: non-verbal, frail Psych: nl mood/affect Eyes: nl lids, nl sclera ENMT: nl external ears & nose Neck: other (trach intact) Respiratory: diminished breath sounds Cardiovascular: nl pulses, other (s1s2) Gastrointestinal: soft, other (gt intact) Musculoskeletal: muscle weakness Extremities: clubbing Neurological: confused Results Results 24hrs Laboratory Tests Test 11/12/18 20:38 11/13/18 01:03 11/13/18 04:15 11/13/18 08:20 Bedside Glucose 140 172 132 White Blood Count 10.7 Red Blood Count 3.06 L Hemoglobin 8.6 L Hematocrit 29.5 L Mean Corpuscular 96.4 Volume Mean Corpuscular 28.1 L Hemoglobin Mean Corpuscular 29.2 L Hemoglobin Concent Red Cell 15.7 H Distribution Width Platelet Count 385 Mean Platelet Volume 10.9 H Immature 1.800 H Granulocytes % Neutrophils % 75.9 Lymphocytes % 6.3 L Monocytes % 9.3 Eosinophils % 5.9 Basophils % 0.8 Nucleated Red Blood 0.0 Cells % Immature 0.190 H Granulocytes # Neutrophils # 8.1 H Lymphocytes # 0.7 L Monocytes # 1.0 H Eosinophils # 0.6 H Basophils # 0.1 Nucleated Red Blood 0.0 Cells # Sodium Level 137 Potassium Level 4.0 Chloride Level 86 L Carbon Dioxide Level 48 *H Anion Gap 3 L Blood Urea Nitrogen 30 H Creatinine 0.47 L Est Glomerular > 60 Filtrat Rate mL/min Glucose Level 145 Calcium Level 7.8 L Phosphorus Level 4.7 Magnesium Level 2.2 Test 11/13/18 14:02 Bedside Glucose 131 Medications Medication Current Medications Acetaminophen (Tylenol Liquid) 650 mg Q4H PRN GTB MILD PAIN(1-3)OR ELEVATED TEMP Last administered on 11/05/18 23:55; Admin Dose 650 MG; Start 10/09/18 at 14:00 Al Hydrox/Mg Hydrox/Simethicone (Mag-Al Plus) 15 ml Q6H PRN PO GASTROINTESTINAL UPSET Last administered on 10/17/18 13:18; Admin Dose 15 ML; Start 10/09/18 at 14:00 Eye Lubricant (Artificial Tears Oph) 1 drop Q6H PRN BOTH EYES DRY EYES Last administered on 11/03/18 09:33; Admin Dose 1 DROP; Start 10/09/18 at 14:00 Bisacodyl (Dulcolax Supp) 10 mg DAILY PRN [place] CONSTIPATION; Start 10/09/18 at 14:00 Clonidine (Catapres) 0.1 mg DAILY PRN GTB ELEVATED BLOOD PRESSURE; Start 10/09/18 at 14:00 Diltiazem HCl (Cardizem Iv) 5 mg Q4 PRN IV ELEVATED HEART RATE Last administered on 11/06/18at 18:47; Admin Dose 5 MG; Start 10/09/18 at 14:00 Diphenhydramine HCl (Benadryl Liquid Cup) 25 mg Q6 PRN GTB ITCHING Last administered on 10/22/18 20:25; Admin Dose 25 MG; Start 10/09/18 at 14:00 Duloxetine HCl (Cymbalta) 30 mg DAILY PO Last administered on 11/13/18at 08:59; Admin Dose 30 MG; Start 10/10/18 at 09:00 Gabapentin (Neurontin Liquid) 400 mg Q8 GTB Last administered on 11/13/18 14:00; Admin Dose 400 MG; Start 10/09/18 at 15:30 Hydralazine HCl (Apresoline) 10 mg Q4H PRN IV ELEVATED BLOOD PRESSURE; Start 10/09/18 at 14:00 Hydroxychloroquine Sulfate (Plaquenil) 200 mg BID PO Last administered on 11/13/18 09:00; Admin Dose 200 MG; Start 10/09/18 at 21:00 Diagnostic Test (Pha) (Accu-Chek) 1 ea 02 XX Last administered on 11/13/18 01:29; Admin Dose 1 EA; Start 10/10/18 at 02:00 Insulin Aspart (Novolog Insulin Pen) NOVOLOG *CUSTOM* ALGORITHM Q6H SC Last administered on 11/13/18 01:05; Admin Dose 1 UNIT; Start 10/09/18 at 14:00 Lactobacillus Acidophilus (Florajen3 Capsule) 1 each BID GTB Last administered on 11/13/18 08:59; Admin Dose 1 EACH; Start 10/09/18 at 21:00 Lansoprazole (Prevacid) 30 mg BID@06,18 GTB Last administered on 11/13/18 05:46; Admin Dose 30 MG; Start 10/09/18 at 18:00 Levetiracetam (Keppra Liquid) 500 mg BID GTB Last administered on 11/13/18 09:02; Admin Dose 500 MG; Start 10/09/18 at 21:00 Magnesium Oxide (Mag-Ox 400) 400 mg BID GTB Last administered on 11/13/18 09:00; Admin Dose 400 MG; Start 10/09/18 at 21:00 Metoclopramide HCl (Reglan) 10 mg TID IV Last administered on 11/13/18 14:01; Admin Dose 10 MG; Start 10/09/18 at 21:00 Miconazole Nitrate (Miconazole 2% Cr) 1 applic BID TOP Last administered on 11/13/18 14:21; Admin Dose 1 APPLIC; Start 10/09/18 at 21:00 Miconazole Nitrate (Miconazole 2% Cr) 1 applic Q12 PRN TOP rash; Start 10/09/18 at 14:00 Ondansetron HCl (Zofran Inj) 4 mg Q4H PRN IV NAUSEA AND/OR VOMITING Last adm inistered on 10/19/18at 16:37; Admin Dose 4 MG; Start 10/09/18 at 14:00 Polyethylene Glycol (Miralax) 17 gm DAILY PRN GTB CONSTIPATION; Start 10/09/18 at 14:00 Senna (Senokot) 2 tab Q8 PRN PO CONSTIPATION; Start 10/09/18 at 14:00 Trimethoprim/ Sulfamethoxazole (Bactrim Susp) 40 ml DAILY GTB Last administered on 11/13/18at 08:58; Admin Dose 40 ML; Start 10/10/18 at 09:00 Zolpidem Tartrate (Ambien) 5 mg HS PRN PO INSOMNIA Last administered on 11/03/18 01:16; Admin Dose 5 MG; Start 10/09/18 at 14:00 Miscellaneous Information 1 ea NOTE XX ; Start 10/09/18 at 15:00 Glucose (Glutose) 15 gm Q15M PRN PO DECREASED GLUCOSE; Start 10/09/18 at 15:00 Glucose (Glutose) 22.5 gm Q15M PRN PO DECREASED GLUCOSE; Start 10/09/18 at 15:00 Dextrose (D50w Syringe) 25 ml Q15M PRN IV DECREASED GLUCOSE; Start 10/09/18 at 15:00 Dextrose (D50w Syringe) 50 ml Q15M PRN IV DECREASED GLUCOSE; Start 10/09/18 at 15:00 Glucagon (Glucagen) 1 mg Q15M PRN IM DECREASED GLUCOSE; Start 10/09/18 at 15:00 Glucose (Glutose) 15 gm Q15M PRN BUCCAL DECREASED GLUCOSE; Start 10/09/18 at 15:00 Albuterol (Ventolin Hfa) 4 puff Q6H RESP THERAPY INH Last administered on 11/13/18 14:31; Admin Dose 4 PUFF; Start 10/10/18 at 02:00 Ipratropium [place] (Atrovent Hfa) 4 puff Q6H RESP THERAPY INH Last administered on 11/13/18 14:31; Admin Dose 4 PUFF; Start 10/10/18 at 02:00 Lorazepam (Ativan) 1 mg Q4H PRN GTB AGITATION/ANXIETY Last administered on 11/05/18at 20:35; Admin Dose 1 MG; Start 10/14/18 at 13:00 Linagliptin (Tradjenta) 5 mg DAILY PO Last administered on 11/13/18 09:00; Admin Dose 5 MG; Start 10/16/18 at 10:30 Fentanyl (Duragesic 50 Mcg/Hr Patch) 1 patch Q72H TRANSDERM Last administered on 11/11/18 04:38; Admin Dose 1 PATCH; Start 10/17/18 at 20:30 Quetiapine Fumarate (Seroquel) 100 mg BID GTB Last administered on 11/13/18 08:59; Admin Dose 100 MG; Start 10/21/18 at 21:00 Calcium Carbonate (Ca Carbonate) 1,250 mg QID GTB Last administered on 11/13/18 14:01; Admin Dose 1,250 MG; Start 10/24/18 at 13:00 Metoprolol Tartrate (Lopressor) 5 mg Q4H PRN IV HR>110 Hold SBP<100 Last administered on 11/11/18 18:31; Admin Dose 5 MG; Start 10/28/18 at 12:30 Phenylephrine HCl 40 mg/Dextrose 250 ml @ 37.5 mls/hr TITRATE IV Last administered on 11/02/18 09:05; Admin Dose 11.25 MLS/HR; Start 11/01/18 at 1 3:30 IV Flush (NS 10 ml) 10 ml PRN PRN IV IV PROTOCOL; Start 11/01/18 at 16:30 Collagenase (Santyl) 1 applic DAILY TOP Last administered on 11/13/18 14:22; Admin Dose 1 APPLIC; Start 11/01/18 at 19:30 Norepinephrine 32 mg/Dextrose 250 ml @ 0.47 mls/hr TITRATE IV Last administered on 11/02/18 12:15; Admin Dose 0.47 MLS/HR; Start 11/02/18 at 11:30 Midodrine (Proamatine) 5 mg TID@09,13,17 GTB Last administered on 11/08/18 12:53; Admin Dose 5 MG; Start 11/03/18 at 09:00; Status Hold Guaifenesin (Robitussin Liquid Cup) 100 mg Q4H PRN PO COUGH Last administered on 11/13/18 09:02; Admin Dose 100 MG; Start 11/03/18 at 12:00 Hydrocortisone (Cortef) 20 mg QAM PEG Last administered on 11/13/18 08:59; Admin Dose 20 MG; Start 11/04/18 at 09:00 Hydrocortisone (Cortef) 20 mg AC DINNER PEG Last administered on 11/12/18 17:33; Admin Dose 20 MG; Start 11/04/18 at 17:05 Hydrocortisone (Cortef) 20 mg HS PEG Last administered on 11/12/18 20:41; Admin Dose 20 MG; Start 11/03/18 at 22:45 Calcitriol (Rocaltrol) 1.5 mcg BID PO Last administered on 11/13/18 09:00; Admin Dose 1.5 MCG; Start 11/07/18 at 21:00 Lorazepam (Ativan) 1 mg Q4 GTB Last administered on 11/13/18 14:26; Admin Dose 1 MG; Start 11/09/18 at 14:00 Carvedilol (Coreg) 6.25 mg BID PO Last administered on 11/13/18 09:01; Admin Dose 6.25 MG; Start 11/09/18 at 21:00 Benazepril HCl (Lotensin) 10 mg DAILY PO Last administered on 11/13/18 09:01; Admin Dose 10 MG; Start 11/10/18 at 09:00 Digoxin (Digoxin) 0.25 mg DAILY@13 PO Last administered on 11/13/18 14:00; Admin Dose 0.25 MG; Start 11/11/18 at 13:00 Furosemide (Lasix) 20 mg DAILY IV Last administered on 11/13/18 09:02; Admin Dose 20 MG; Start 11/10/18 at 12:30 Hydromorphone HCl (Dilaudid) 3 mg Q4H PRN PO MODERATE PAIN LEVEL 7-10 Last administered on 11/13/18 08:59; Admin Dose 3 MG; Start 11/10/18 at 22:00 Cefepime HCl 50 ml @ 100 mls/hr Q12 IVPB Last administered on 11/13/18 08:57; Admin Dose 100 MLS/HR; Start 11/10/18 at 23:30 TOMMY MARTELL Nov 13, 2018 15:11
[2018-11-13] MEDS: FENTAnyl PATCH 50 MCG/HR TRANSDERM SCH (20:30)
--- NOTE | 2018-11-13 21:53 | CONS ---
Assessment/Plan Assessment/Plan Hospital Course (Demo Recall) # sepsis, respiratory - recurrent sepsis on 10/08/2018 due to aspiration pneumonia, HCAP - s/p possible aspiration pneumonia, recurrent pneumonia due to citrobacter - acute on chronic hypoxic and hypercarbic respiratory failure - persistent leukocytosis likely due to steroid margination - h/o tracheostomy on 08/26/2018 - h/o "Increased mild left apical pneumothorax" per CXR on 09/19/2018; no pne umothorax mentioned on subsequent CXR - h/o pneumomediastinum - h/o VAT on 08/11/2018 - h/o asthma/COPD exacerbation - h/o acute tracheobronchitis - h/o MAC infection but CT chest did not demonstrate features suggestive of this per chart review - h/o HCAP due to citrobacter, based on resp culture on 09/13/2018 - h/o aspergillus in resp culture according to a note by Dr. Lopez, a pulmonlogist at OSH on 07/25/2018 - h/o elevated 1,3 [id number] level = 232 on 08/06/2018 - h/o MSSA septicemia # GI - diarrhea, C diff on 10/09/2018 was negative. 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 x 21 days from 08/26/2018 - h/o EGD, esophageal biopsy showed esophageal squamous mucosa showing acute inflammation, granulation tissue, and ulceration consistent with ulcerative eso phagitis, rare multinucleated cells with morphology suggestive of vial cytopathic changes, No cardiac mucosa, intestinal metaplasia, dysplasia, or malignancy defined - GERD - PUD # renal/ - Hypokalemia, recurrent - CKD 2 - BPH # cardiac - tachycardia, persistent - ACD - HTN # endo - T2DM - Hgb A1c 7.2% - secondary adrenal insufficiency; steroid dependent - HLD - Hypoparathyroidism - Hypercalcemia - Pamidronate was ordered # neuro - toxic metabolic encephalopathy - Cervical myopathy - Severe cervical spinal cord stenosis with cord compression from C3-C5, s/p laminectomy in ~03/2018 - Chronic pain syndrome - Functional quadriplegia - Seizure d/o # other chronic conditions - RA with chronic steroid dependence - Immunocompromised status - Fibromyalgia - DDD - H/o multiple rib fracture - Pt completed: meropenem (09/25/2018-10/02/2018), vancomycin (09/25/18-09/28/18), pip/tazo (10/09/2018-10/15/2018) - so far: pneumocystis antigen negative, AFB smear negative and final culture x3 pending, quantiferon TB gold negative, coccidioides serology negative Recommendations: - repeat C diff test (ordered) - I asked pt's RN to send this tonight as it has been at least 7 days since his last C diff test - continue cefepime (restarted 11/10/2018-) - continue Bactrim for pneumocystis PPX Management d/w [employer] and with Dr. Davila Critical care time spent: 30 min Consultation Date/Type/Reason Admit Date/Time Oct 09, 2018 at 12:16 Initial Consult Date 10/12/18 Type of Consult Infectious Disease Requesting Provider: NOLA VIDAL MD Date/Time of Note DATE: 11/13/18 TIME: 21:51 24 HR Interval Summary Free Text/Dictation Afebrile, leukocytosis normalized, and trach aspirate cx growing Citrobacter susceptible to cefepime. No acute issues; FiO2 still at 85% per d/w [employer]. Subjective hx not possible: pt non-verbal, pt critical status Exam/Review of Systems Exam Vitals Vital Signs Date Temp Pulse Resp B/P (MAP) Pulse Ox O2 O2 Flow FiO2 Time Delivery Rate 11/13/18 85 20:00 11/13/18 111 20:00 11/13/18 98.9 29 117/74 92 Mechanical 20:00 (88) Ventilator Intake and Output 11/12/18 11/12/18 11/13/18 1515:00 23:00 07:00 IntakeIntake Total 420 ml 570 ml 520 ml OutputOutput Total 400 ml 750 ml 260 ml BalanceBalance 20 ml -180 ml 260 ml Exam Constitutional: non-verbal, frail, other (chronically debilitated, sleeping) Head: normocephalic, atraumatic Eyes: nl conjunctiva, nl lids ENMT: nl external ears & nose, nl nasal mucosa & septum Neck: other (trach midline) Respiratory: crackles/rales Cardiovascular: other (regular rhythm, tachycardic low 100's) Gastrointestinal: soft, non-tender, other (G-tube with TF in progress; Flexiseal with liquid brown stool) Genitourinary - Male: other (Condom catheter in place with yellow urine) Musculoskeletal: nl extremities to inspection Extremities: pitting pedal edema, other (bilateral foot drop); Neurological: lethargic (asleep) Skin: other (stage 2 decub on back - nurses notes and photos reviewed in chart) Results Result Diagram: 11/13/18 0415 11/13/18 0415 Results 24hrs Laboratory Tests Test 11/13/18 01:03 11/13/18 04:15 11/13/18 08:20 11/13/18 14:02 Bedside Glucose 172 132 131 White Blood Count 10.7 Red Blood Count 3.06 L Hemoglobin 8.6 L Hematocrit 29.5 L Mean Corpuscular 96.4 Volume Mean Corpuscular 28.1 L Hemoglobin Mean Corpuscular 29.2 L Hemoglobin Concent Red Cell 15.7 H Distribution Width Platelet Count 385 Mean Platelet Volume 10.9 H Immature 1.800 H Granulocytes % Neutrophils % 75.9 Lymphocytes % 6.3 L Monocytes % 9.3 Eosinophils % 5.9 Basophils % 0.8 Nucleated Red Blood 0.0 Cells % Immature 0.190 H Granulocytes # Neutrophils # 8.1 H Lymphocytes # 0.7 L Monocytes # 1.0 H Eosinophils # 0.6 H Basophils # 0.1 Nucleated Red Blood 0.0 Cells # Sodium Level 137 Potassium Level 4.0 Chloride Level 86 L Carbon Dioxide Level 48 *H Anion Gap 3 L Blood Urea Nitrogen 30 H Creatinine 0.47 L Est Glomerular > 60 Filtrat Rate mL/min Glucose Level 145 Calcium Level 7.8 L Phosphorus Level 4.7 Magnesium Level 2.2 Test 11/13/18 20:21 Bedside Glucose 126 Medications Medication Current Medications Acetaminophen (Tylenol Liquid) 650 mg Q4H PRN GTB MILD PAIN(1-3)OR ELEVATED TEMP Last administered on 11/05/18at 23:55; Admin Dose 650 MG; Start 10/09/18 at 14:00 Al Hydrox/Mg Hydrox/Simethicone (Mag-Al Plus) 15 ml Q6H PRN PO GASTROINTESTINAL UPSET Last administered on 10/17/18at 13:18; Admin Dose 15 ML; Start 10/09/18 at 14:00 Eye Lubricant (Artificial Tears Oph) 1 drop Q6H PRN BOTH EYES DRY EYES Last administered on 11/03/18 09:33; Admin Dose 1 DROP; Start 10/09/18 at 14:00 Bisacodyl (Dulcolax Supp) 10 mg DAILY PRN [place] CONSTIPATION; Start 10/09/18 at 1 4:00 Clonidine (Catapres) 0.1 mg DAILY PRN GTB ELEVATED BLOOD PRESSURE; Start 10/09/18 at 14:00 Diltiazem HCl (Cardizem Iv) 5 mg Q4 PRN IV ELEVATED HEART RATE Last administered on 11/06/18 18:47; Admin Dose 5 MG; Start 10/09/18 at 14:00 Diphenhydramine HCl (Benadryl Liquid Cup) 25 mg Q6 PRN GTB ITCHING Last administered on 10/22/18 20:25; Admin Dose 25 MG; Start 10/09/18 at 14:00 Duloxetine HCl (Cymbalta) 30 mg DAILY PO Last administered on 11/13/18 08:59; Admin Dose 30 MG; Start 10/10/18 at 09:00 Gabapentin (Neurontin Liquid) 400 mg Q8 GTB Last administered on 11/13/18 14:00; Admin Dose 400 MG; Start 10/09/18 at 15:30 Hydralazine HCl (Apresoline) 10 mg Q4H PRN IV ELEVATED BLOOD PRESSURE; Start 10/09/18 at 14:00 Hydroxychloroquine Sulfate (Plaquenil) 200 mg BID PO Last administered on 11/13/18 20:22; Admin Dose 200 MG; Start 10/09/18 at 21:00 Diagnostic Test (Pha) (Accu-Chek) 1 ea 02 XX Last administered on 11/13/18 01:29; Admin Dose 1 EA; Start 10/10/18 at 02:00 Insulin Aspart (Novolog Insulin Pen) NOVOLOG *CUSTOM* ALGORITHM Q6H SC Last administered on 11/13/18 01:05; Admin Dose 1 UNIT; Start 10/09/18 at 14:00 Lactobacillus Acidophilus (Florajen3 Capsule) 1 each BID GTB Last administered on 11/13/18 20:21; Admin Dose 1 EACH; Start 10/09/18 at 21:00 Lansoprazole (Prevacid) 30 mg BID@,18 GTB Last administered on 11/13/18 17:58; Admin Dose 30 MG; Start 10/09/18 at 18:00 Levetiracetam (Keppra Liquid) 500 mg BID GTB Last administered on 11/13/18 20:21; Admin Dose 500 MG; Start 10/09/18 at 21:00 Magnesium Oxide (Mag-Ox 400) 400 mg BID GTB Last administered on 11/13/18 20:22; Admin Dose 400 MG; Start 10/09/18 at 21:00 Metoclopramide HCl (Reglan) 10 mg TID IV Last administered on 11/13/18 20:21; Admin Dose 10 MG; Start 10/09/18 at 21:00 Miconazole Nitrate (Miconazole 2% Cr) 1 applic BID TOP Last administered on 11/13/18 20:23; Admin Dose 1 APPLIC; Start 10/09/18 at 21:00 Miconazole Nitrate (Miconazole 2% Cr) 1 applic Q12 PRN TOP rash; Start 10/09/18 at 14:00 Ondansetron HCl (Zofran Inj) 4 mg Q4H PRN IV NAUSEA AND/OR VOMITING Last administered on 10/19/18 16:37; Admin Dose 4 MG; Start 10/09/18 at 14:00 Polyethylene Glycol (Miralax) 17 gm DAILY PRN GTB CONSTIPATION; Start 10/09/18 at 14:00 Senna (Senokot) 2 tab Q8 PRN PO CONSTIPATION; Start 10/09/18 at 14:00 Trimethoprim/ Sulfamethoxazole (Bactrim Susp) 40 ml DAILY GTB Last administered on 11/13/18 08:58; Admin Dose 40 ML; Start 10/10/18 at 09:00 Zolpidem Tartrate (Ambien) 5 mg HS PRN PO INSOMNIA Last administered on 11/03/18 01:16; Admin Dose 5 MG; Start 10/09/18 at 14:00 Miscellaneous Information 1 ea NOTE XX ; Start 10/09/18 at 15:00 Glucose (Glutose) 15 gm Q15M PRN PO DECREASED GLUCOSE; Start 10/09/18 at 15:00 Glucose (Glutose) 22.5 gm Q15M PRN PO DECREASED GLUCOSE; Start 10/09/18 at 15:00 Dextrose (D50w Syringe) 25 ml Q15M PRN IV DECREASED GLUCOSE; Start 10/09/18 at 15:00 Dextrose (D50w Syringe) 50 ml Q15M PRN IV DECREASED GLUCOSE; Start 10/09/18 at 15:00 Glucagon (Glucagen) 1 mg Q15M PRN IM DECREASED GLUCOSE; Start 10/09/18 at 15:00 Glucose (Glutose) 15 gm Q15M PRN BUCCAL DECREASED GLUCOSE; Start 10/09/18 at 15:00 Albuterol (Ventolin Hfa) 4 puff Q6H RESP THERAPY INH Last administered on 11/13/18 19:55; Admin Dose 4 PUFF; Start 10/10/18 at 02:00 Ipratropium [place] (Atrovent Hfa) 4 puff Q6H RESP THERAPY INH Last administered on 11/13/18 19:55; Admin Dose 4 PUFF; Start 10/10/18 at 02:00 Lorazepam (Ativan) 1 mg Q4H PRN GTB AGITATION/ANXIETY Last administered on 11/05/18 20:35; Admin Dose 1 MG; Start 10/14/18 at 13:00 Linagliptin (Tradjenta) 5 mg DAILY PO Last administered on 11/13/18 09:00; Admin Dose 5 MG; Start 10/16/18 at 10:30 Fentanyl (Duragesic 50 Mcg/Hr Patch) 1 patch Q72H TRANSDERM Last administered on 11/11/18 04:38; Admin Dose 1 PATCH; Start 10/17/18 at 20:30 Quetiapine Fumarate (Seroquel) 100 mg BID GTB Last administered on 11/13/18 20:22; Admin Dose 100 MG; Start 10/21/18 at 21:00 Calcium Carbonate (Ca Carbonate) 1,250 mg QID GTB Last administered on 11/13/18 20:22; Admin Dose 1,250 MG; Start 10/24/18 at 13:00 Metoprolol Tartrate (Lopressor) 5 mg Q4H PRN IV HR>110 Hold SBP<100 Last administered on 11/11/18 18:31; Admin Dose 5 MG; Start 10/28/18 at 12:30 Phenylephrine HCl 40 mg/Dextrose 250 ml @ 37.5 mls/hr TITRATE IV Last administered on 11/02/18 09:05; Admin Dose 11.25 MLS/HR; Start 11/01/18 at 13:30 IV Flush (NS 10 ml) 10 ml PRN PRN IV IV PROTOCOL; Start 11/01/18 at 16:30 Collagenase (Santyl) 1 applic DAILY TOP Last administered on 11/13/18 14:22; Admin Dose 1 APPLIC; Start 11/01/18 at 19:30 Norepinephrine 32 mg/Dextrose 250 ml @ 0.47 mls/hr TITRATE IV Last administered on 11/02/18 12:15; Admin Dose 0.47 MLS/HR; Start 11/02/18 at 11:30 Midodrine (Proamatine) 5 mg TID@09,13,17 GTB Last administered on 11/08/18 12:53; Admin Dose 5 MG; Start 11/03/18 at 09:00; Status Hold Guaifenesin (Robitussin Liquid Cup) 100 mg Q4H PRN PO COUGH Last administered on 11/13/18 17:58; Admin Dose 100 MG; Start 11/03/18 at 12:00 Hydrocortisone (Cortef) 20 mg QAM PEG Last administered on 11/13/18 08:59; Admin Dose 20 MG; Start 11/04/18 at 09:00 Hydrocortisone (Cortef) 20 mg AC DINNER PEG Last administered on 11/13/18 17:58; Admin Dose 20 MG; Start 11/04/18 at 17:05 Hydrocortisone (Cortef) 20 mg HS PEG Last administered on 11/13/18 20:22; Admin Dose 20 MG; Start 11/03/18 at 22:45 Calcitriol (Rocaltrol) 1.5 mcg BID PO Last administered on 11/13/18 20:21; Admin Dose 1.5 MCG; Start 11/07/18 at 21:00 Lorazepam (Ativan) 1 mg Q4 GTB Last administered on 11/13/18 20:21; Admin Dose 1 MG; Start 11/09/18 at 14:00 Carvedilol (Coreg) 6.25 mg BID PO Last administered on 11/13/18 20:22; Admin Dose 6.25 MG; Start 11/09/18 at 21:00 Benazepril HCl (Lotensin) 10 mg DAILY PO Last administered on 11/13/18 09:01; Admin Dose 10 MG; Start 11/10/18 at 09:00 Digoxin (Digoxin) 0.25 mg DAILY@13 PO Last administered on 11/13/18 14:00; Admin Dose 0.25 MG; Start 11/11/18 at 13:00 Furosemide (Lasix) 20 mg DAILY IV Last administered on 11/13/18 09:02; Admin Dose 20 MG; Start 11/10/18 at 12:30 Hydromorphone HCl (Dilaudid) 3 mg Q4H PRN PO MODERATE PAIN LEVEL 7-10 Last administered on 11/13/18 17:59; Admin Dose 3 MG; Start 11/10/18 at 22:00 Cefepime HCl 50 ml @ 100 mls/hr Q12 IVPB Last administered on 11/13/18 08:57; Admin Dose 100 MLS/HR; Start 11/10/18 at 23:30 CATHERINE FISH NP Nov 13, 2018 21:53
[2018-11-14] VITALS (34 sets, daily range): BP systolic 88–147; BP diastolic 54–93; PULSE 102–132; RESP 17–38
[2018-11-14] MEDS: INSULIN ASPART [NOVOLOG] 3 ML PEN SC SCH ×4 (01:27→20:00)
[2018-11-14] MEDS: LORAZEPAM 1 MG TAB GTB SCH ×6 (01:27→20:21)
[2018-11-14] MEDS: ACCU-CHEK XX SCH (01:35)
[2018-11-14] MEDS: ALBUTEROL HFA 8 GM INHALER INH SCH ×4 (01:47→19:16)
[2018-11-14] MEDS: IPRATROPIUM (HFA) 12.9 GM INHALER INH SCH ×4 (01:47→19:16)
[2018-11-14] MEDS: LANSOPRAZOLE 30 MG CAP GTB SCH ×2 (05:21→16:44)
[2018-11-14] MEDS: GABAPENTIN (50 MG/ML PO SYG) GTB SCH ×3 (05:21→22:03)
--- NOTE | 2018-11-14 07:02 | CONS ---
Assessment/Plan Assessment/Plan Hospital Course (Demo Recall) 53 yo male pt in [place] transferred to ICU for increased O2 demands Interval History-No acute changes. soft brown stool in rectal tube. passing gas. Stool sent for cx per Dr Nevarez 1. Respiratory failure secondary to pneumonia versus interstitial pneumonitis from rheumatoid arthritis versus mild aspiration. -on Bactrim 2. Severe rheumatoid arthritis. 3. Quadriplegia. 4. Adrenal insufficiency. 5. Gastroparesis. -Reglan, denies nausea -resolved 6. Hypothyroidism. 7. Chronic pain syndrome. 8. Hypertension. 9. 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 Leukocytosis secondary to steroids 11.ARDS 12. Anxiety -on PO ativan 13. Anemia, chronic -FOB was neg 10/11, pos 11/08, hgb stable at 8.6 PLAN: Please call Dr Minaya for any GI issues. Continue supportive ICU care Nothing by mouth per swallow eval results Continue with tube feeds check residuals q 4 hours Continue Reglan. Aspiration precautions. So far there is no evidence of aspiration. If anytime there is evidence of aspiration will convert G-tube to J-tube Pt examined and plan of care discussed with Dr. Minaya Consultation Date/Type/Reason Admit Date/Time Oct 09, 2018 at 12:16 Initial Consult Date 10/09/18 Requesting Provider: NOLA VIDAL MD Date/Time of Note DATE: 11/14/18 TIME: 07:01 Exam/Review of Systems Exam Vitals Vital Signs Date Temp Pulse Resp B/P (MAP) Pulse Ox O2 O2 Flow FiO2 Time Delivery Rate 11/14/18 120 24 142/85 91 Mechanical 06:00 (104) Ventilator 11/14/18 85 05:31 11/14/18 98.7 04:00 Intake and Output 11/13/18 11/13/18 11/14/18 1515:00 23:00 07:00 IntakeIntake Total 590 ml 340 ml 330 ml OutputOutput Total 575 ml 575 ml 375 ml BalanceBalance 15 ml -235 ml -45 ml Results Result Diagram: 11/14/18 0443 11/14/18 0443 Results 24hrs Laboratory Tests Test 11/13/18 08:20 11/13/18 14:02 11/13/18 20:21 11/14/18 01:26 Bedside Glucose 132 131 126 149 Test 11/14/18 04:43 White Blood Count 12.3 H Red Blood Count 3.10 L Hemoglobin 8.6 L Hematocrit 29.8 L Mean Corpuscular 96.1 Volume Mean Corpuscular 27.7 L Hemoglobin Mean Corpuscular 28.9 L Hemoglobin Concent Red Cell Distribution 15.9 H Width Platelet Count 418 H Mean Platelet Volume 10.8 H Immature Granulocytes 1.900 H % Neutrophils % 63.3 Lymphocytes % 6.4 L Monocytes % 11.3 H Eosinophils % 16.1 H Basophils % 1.0 Nucleated Red Blood 0.0 Cells % Immature Granulocytes 0.230 H # Neutrophils # 7.8 H Lymphocytes # 0.8 Monocytes # 1.4 H Eosinophils # 2.0 H Basophils # 0.1 Nucleated Red Blood 0.0 Cells # Sodium Level 140 Potassium Level 3.9 Chloride Level 90 L Carbon Dioxide Level 45 *H Anion Gap 5 Blood Urea Nitrogen 29 H Creatinine 0.38 L Est Glomerular > 60 Filtrat Rate mL/min Glucose Level 117 Calcium Level 8.5 Medications Medication Current Medications Acetaminophen (Tylenol Liquid) 650 mg Q4H PRN GTB MILD PAIN(1-3)OR ELEVATED TEMP Last administered on 11/05/18at 23:55; Admin Dose 650 MG; Start 10/09/18 at 14:00 Al Hydrox/Mg Hydrox/Simethicone (Mag-Al Plus) 15 ml Q6H PRN PO GASTROINTESTINAL UPSET Last administered on 10/17/18at 13:18; Admin Dose 15 ML; Start 10/09/18 at 14:00 Eye Lubricant (Artificial Tears Oph) 1 drop Q6H PRN BOTH EYES DRY EYES Last administered on 11/03/18at 09:33; Admin Dose 1 DROP; Start 10/09/18 at 14:00 Bisacodyl (Dulcolax Supp) 10 mg DAILY PRN [place] CONSTIPATION; Start 10/09/18 at 14:00 Clonidine (Catapres) 0.1 mg DAILY PRN GTB ELEVATED BLOOD PRESSURE; Start 10/09/18 at 14:00 Diltiazem HCl (Cardizem Iv) 5 mg Q4 PRN IV ELEVATED HEART RATE Last administered on 11/06/18at 18:47; Admin Dose 5 MG; Start 10/09/18 at 14:00 Diphenhydramine HCl (Benadryl Liquid Cup) 25 mg Q6 PRN GTB ITCHING Last administered on 10/22/18 20:25; Admin Dose 25 MG; Start 10/09/18 at 14:00 Duloxetine HCl (Cymbalta) 30 mg DAILY PO Last administered on 11/13/18 08:59; Admin Dose 30 MG; Start 10/10/18 at 09:00 Gabapentin (Neurontin Liquid) 400 mg Q8 GTB Last administered on 11/14/18 05:21; Admin Dose 400 MG; Start 10/09/18 at 15:30 Hydralazine HCl (Apresoline) 10 mg Q4H PRN IV ELEVATED BLOOD PRESSURE; Start 10/09/18 at 14:00 Hydroxychloroquine Sulfate (Plaquenil) 200 mg BID PO Last administered on 11/13/18 20:22; Admin Dose 200 MG; Start 10/09/18 at 21:00 Diagnostic Test (Pha) (Accu-Chek) 1 ea 02 XX Last administered on 11/14/18 01:35; Admin Dose 1 EA; Start 10/10/18 at 02:00 Insulin Aspart (Novolog Insulin Pen) NOVOLOG *CUSTOM* ALGORITHM Q6H SC Last administered on 11/13/18 01:05; Admin Dose 1 UNIT; Start 10/09/18 at 14:00 Lactobacillus Acidophilus (Florajen3 Capsule) 1 each BID GTB Last administered on 11/13/18 20:21; Admin Dose 1 EACH; Start 10/09/18 at 21:00 Lansoprazole (Prevacid) 30 mg BID@,18 GTB Last administered on 11/14/18 05:21; Admin Dose 30 MG; Start 10/09/18 at 18:00 Levetiracetam (Keppra Liquid) 500 mg BID GTB Last administered on 11/13/18 20:21; Admin Dose 500 MG; Start 10/09/18 at 21:00 Magnesium Oxide (Mag-Ox 400) 400 mg BID GTB Last administered on 11/13/18 20:22; Admin Dose 400 MG; Start 10/09/18 at 21:00 Metoclopramide HCl (Reglan) 10 mg TID IV Last administered on 3/31/19at 20:21; Admin Dose 10 MG; Start 10/09/18 at 21:00 Miconazole Nitrate (Miconazole 2% Cr) 1 applic BID TOP Last administered on 11/13/18at 20:23; Admin Dose 1 APPLIC; Start 10/09/18 at 21:00 Miconazole Nitrate (Miconazole 2% Cr) 1 applic Q12 PRN TOP rash; Start 10/09/18 at 14:00 Ondansetron HCl (Zofran Inj) 4 mg Q4H PRN IV NAUSEA AND/OR VOMITING Last administered on 10/19/18at 16:37; Admin Dose 4 MG; Start 10/09/18 at 14:00 Polyethylene Glycol (Miralax) 17 gm DAILY PRN GTB CONSTIPATION; Start 10/09/18 at 14:00 Senna (Senokot) 2 tab Q8 PRN PO CONSTIPATION; Start 10/09/18 at 14:00 Trimethoprim/ Sulfamethoxazole (Bactrim Susp) 40 ml DAILY GTB Last administered on 11/13/18at 08:58; Admin Dose 40 ML; Start 10/10/18 at 09:00 Zolpidem Tartrate (Ambien) 5 mg HS PRN PO INSOMNIA Last administered on 11/03/18at 01:16; Admin Dose 5 MG; Start 10/09/18 at 14:00 Miscellaneous Information 1 ea NOTE XX ; Start 10/09/18 at 15:00 Glucose (Glutose) 15 gm Q15M PRN PO DECREASED GLUCOSE; Start 10/09/18 at 15:00 Glucose (Glutose) 22.5 gm Q15M PRN PO DECREASED GLUCOSE; Start 10/09/18 at 15:00 Dextrose (D50w Syringe) 25 ml Q15M PRN IV DECREASED GLUCOSE; Start 10/09/18 at 15:00 Dextrose (D50w Syringe) 50 ml Q15M PRN IV DECREASED GLUCOSE; Start 10/09/18 at 15:00 Glucagon (Glucagen) 1 mg Q15M PRN IM DECREASED GLUCOSE; Start 10/09/18 at 15:00 Glucose (Glutose) 15 gm Q15M PRN BUCCAL DECREASED GLUCOSE; Start 10/09/18 at 15:00 Albuterol (Ventolin Hfa) 4 puff Q6H RESP THERAPY INH Last administered on 11/14/18at 01:47; Admin Dose 4 PUFF; Start 10/10/18 at 02:00 Ipratropium [place] (Atrovent Hfa) 4 puff Q6H RESP THERAPY INH Last administered on 11/14/18 01:47; Admin Dose 4 PUFF; Start 10/10/18 at 02:00 Lorazepam (Ativan) 1 mg Q4H PRN GTB AGITATION/ANXIETY Last administered on 11/05/18 20:35; Admin Dose 1 MG; Start 10/14/18 at 13:00 Linagliptin (Tradjenta) 5 mg DAILY PO Last administered on 11/13/18 09:00; Admin Dose 5 MG; Start 10/16/18 at 10:30 Fentanyl (Duragesic 50 Mcg/Hr Patch) 1 patch Q72H TRANSDERM Last administered on 11/11/18 04:38; Admin Dose 1 PATCH; Start 10/17/18 at 20:30 Quetiapine Fumarate (Seroquel) 100 mg BID GTB Last administered on 11/13/18 20:22; Admin Dose 100 MG; Start 10/21/18 at 21:00 Calcium Carbonate (Ca Carbonate) 1,250 mg QID GTB Last administered on 11/13/18 20:22; Admin Dose 1,250 MG; Start 10/24/18 at 13:00 Metoprolol Tartrate (Lopressor) 5 mg Q4H PRN IV HR>110 Hold SBP<100 Last administered on 11/11/18 18:31; Admin Dose 5 MG; Start 10/28/18 at 12:30 Phenylephrine HCl 40 mg/Dextrose 250 ml @ 37.5 mls/hr TITRATE IV Last administered on 11/02/18 09:05; Admin Dose 11.25 MLS/HR; Start 11/01/18 at 13:30 IV Flush (NS 10 ml) 10 ml PRN PRN IV IV PROTOCOL; Start 11/01/18 at 16:30 Collagenase (Santyl) 1 applic DAILY TOP Last administered on 11/13/18 14:22; Admin Dose 1 APPLIC; Start 11/01/18 at 19:30 Norepinephrine 32 mg/Dextrose 250 ml @ 0.47 mls/hr TITRATE IV Last administered on 11/02/18 12:15; Admin Dose 0.47 MLS/HR; Start 11/02/18 at 11:30 Midodrine (Proamatine) 5 mg TID@09,13,17 GTB Last administered on 11/08/18 12:53; Admin Dose 5 MG; Start 11/03/18 at 09:00; Status Hold Guaifenesin (Robitussin Liquid Cup) 100 mg Q4H PRN PO COUGH Last administered on 11/13/18 17:58; Admin Dose 100 MG; Start 11/03/18 at 12:00 Hydrocortisone (Cortef) 20 mg QAM PEG Last administered on 11/13/18 08:59; Admin Dose 20 MG; Start 11/04/18 at 09:00 Hydrocortisone (Cortef) 20 mg AC DINNER PEG Last administered on 11/13/18 17:58; Admin Dose 20 MG; Start 11/04/18 at 17:05 Hydrocortisone (Cortef) 20 mg HS PEG Last administered on 11/13/18 20:22; Admin Dose 20 MG; Start 11/03/18 at 22:45 Calcitriol (Rocaltrol) 1.5 mcg BID PO Last administered on 11/13/18 20:21; Admin Dose 1.5 MCG; Start 11/07/18 at 21:00 Lorazepam (Ativan) 1 mg Q4 GTB Last administered on 11/14/18 05:21; Admin Dose 1 MG; Start 11/09/18 at 14:00 Carvedilol (Coreg) 6.25 mg BID PO Last administered on 11/13/18 20:22; Admin Dose 6.25 MG; Start 11/09/18 at 21:00 Benazepril HCl (Lotensin) 10 mg DAILY PO Last administered on 11/13/18 09:01; Admin Dose 10 MG; Start 11/10/18 at 09:00 Digoxin (Digoxin) 0.25 mg DAILY@13 PO Last administered on 11/13/18 14:00; Admin Dose 0.25 MG; Start 11/11/18 at 13:00 Furosemide (Lasix) 20 mg DAILY IV Last administered on 11/13/18 09:02; Admin Dose 20 MG; Start 11/10/18 at 12:30 Hydromorphone HCl (Dilaudid) 3 mg Q4H PRN PO MODERATE PAIN LEVEL 7-10 Last administered on 11/13/18 17:59; Admin Dose 3 MG; Start 11/10/18 at 22:00 Cefepime HCl 50 ml @ 100 mls/hr Q12 IVPB Last administered on 11/13/18at 21:00; Admin Dose 100 MLS/HR; Start 11/10/18 at 23:30 MARYANN HACKETT Nov 14, 2018 07:02
[2018-11-14] MEDS: CA CARBONATE (250 MG/ML) 5ML CUP GTB SCH ×4 (08:17→20:21)
[2018-11-14] MEDS: LEVETIRACETAM (100 MG/ML) 5ML CUP GTB SCH ×2 (08:17→20:21)
[2018-11-14] MEDS: DULOXETINE 30 MG CAP DR PO SCH (08:18)
[2018-11-14] MEDS: L ACIDOPHIL/B LACTIS/B LONGUM CAPSULE GTB SCH ×2 (08:18→20:21)
[2018-11-14] MEDS: QUETIAPINE 100 MG TAB GTB SCH ×2 (08:18→20:22)
[2018-11-14] MEDS: BENAZEPRIL 10 MG TAB PO SCH (08:18)
[2018-11-14] MEDS: HYDROXYCHLOROQUINE 200 MG TAB PO SCH ×2 (08:18→20:22)
[2018-11-14] MEDS: HYDROCORTISONE 20 MG TAB PEG SCH ×3 (08:18→20:22)
[2018-11-14] MEDS: CALCITRIOL 0.5 MCG CAPSULE PO SCH ×2 (08:18→20:22)
[2018-11-14] MEDS: METOCLOPRAMIDE 10 MG INJ IV SCH ×3 (08:19→20:21)
[2018-11-14] MEDS: FUROSEMIDE 20 MG INJ IV SCH (08:19)
[2018-11-14] MEDS: CEFEPIME 1GM/50 ML (PMX) 50 ML IVPB SCH ×2 (08:19→20:22)
[2018-11-14] MEDS: LINAGLIPTIN 5 MG TABLET PO SCH (08:19)
[2018-11-14] MEDS: MAGNESIUM OXIDE 400 MG TAB GTB SCH ×2 (08:19→20:23)
[2018-11-14] MEDS: MICONAZOLE 2% 30 GM CR TOP SCH ×2 (08:27→20:23)
[2018-11-14] MEDS: BALSAM PERU/CASTOR OIL 60 GM TUBE TOP SCH ×2 (08:27→20:23)
[2018-11-14] MEDS: COLLAGENASE 5 GM (UD JAR) TOP SCH (08:27)
--- NOTE | 2018-11-14 09:22 | CONS ---
Assessment/Plan Assessment/Plan Assessment/Plan (Daily) Ventilator setting; AC of 20, pressure control, PEEP of 8, 100% FiO2. Assessment recommendations; 1. Patient with history of VDR F and ARDS as well as functional quadriplegia admitted for worsening hypoxemia with significant decline in overall clinical status over the last 48 hours. Patient however still required persistently high FiO2 and pressure control mode of ventilation. 2. History of HSV esophagitis. 3. Possibly superimposed pneumonia. 4. Peripheral neuropathy. 5. Anemia. 6. History of anxiety and depression. 7. History of hypertension. Continue current supportive care. Add fentanyl drip for tight control of tachypnea as well as for relief of possible underlying pain. Prognosis appears extremely poor. Consultation Date/Type/Reason Admit Date/Time Oct 09, 2018 at 12:16 Initial Consult Date 10/12/18 Type of Consult Pulmonary/critical care Patient's condition is stable. Remains completely awake and alert. Has remained hemodynamically stable. Patient also has been switched over to volume control ventilation from pressure-controlled mode. General exam; middle-aged male, on ventilator via tracheostomy, awake and alert. Watching television. Currently in no distress. Area Requesting Provider: NOLA VIDAL MD Date/Time of Note DATE: 11/14/18 TIME: 09: 24 HR Interval Summary Free Text/Dictation Patient's condition is taking a progressive downhill course. Patient exhibiting severe profound hypoxemia now. Also exhibiting altered mental status with mental lethargic. General exam; middle-aged male, on ventilator via tracheostomy, awake but lethargic. Exam/Review of Systems Exam Vitals Vital Signs Date Temp Pulse Resp B/P (MAP) Pulse Ox O2 O2 Flow FiO2 Time Delivery Rate 11/14/18 120 24 142/85 91 Mechanical 06:00 (104) Ventilator 11/14/18 85 05:31 11/14/18 98.7 04:00 Intake and Output 11/13/18 11/13/18 11/14/18 1515:00 23:00 07:00 IntakeIntake Total 590 ml 340 ml 330 ml OutputOutput Total 575 ml 575 ml 375 ml BalanceBalance 15 ml -235 ml -45 ml Exam H EENT exam; supple neck, no JVD. No lymphadenopathy. Midline trachea. No thyromegaly. Patient is edentulous. Tracheostomy in place. Chest exam; bilateral crackles. S1-S2 audible, no murmurs. Regular rhythm. Abdomen exam; soft, G-tube in place. No organomegaly. Bowel sounds audible. Extremity exam; no peripheral edema or clubbing. [employer] exam; patient is awake but lethargic. Results Result Diagram: 11/14/18 0443 11/14/18 0443 Results 24hrs Laboratory Tests Test 11/13/18 14:02 11/13/18 20:21 11/14/18 01:26 11/14/18 04:43 Bedside Glucose 131 126 149 White Blood Count 12.3 H Red Blood Count 3.10 L Hemoglobin 8.6 L Hematocrit 29.8 L Mean Corpuscular 96.1 Volume Mean Corpuscular 27.7 L Hemoglobin Mean Corpuscular 28.9 L Hemoglobin Concent Red Cell Distribution 15.9 H Width Platelet Count 418 H Mean Platelet Volume 10.8 H Immature Granulocytes 1.900 H % Neutrophils % 63.3 Lymphocytes % 6.4 L Monocytes % 11.3 H Eosinophils % 16.1 H Basophils % 1.0 Nucleated Red Blood 0.0 Cells % Immature Granulocytes 0.230 H # Neutrophils # 7.8 H Lymphocytes # 0.8 Monocytes # 1.4 H Eosinophils # 2.0 H Basophils # 0.1 Nucleated Red Blood 0.0 Cells # Sodium Level 140 Potassium Level 3.9 Chloride Level 90 L Carbon Dioxide Level 45 *H Anion Gap 5 Blood Urea Nitrogen 29 H Creatinine 0.38 L Est Glomerular Filtrat > 60 Rate mL/min Glucose Level 117 Calcium Level 8.5 Test 11/14/18 08:48 Bedside Glucose 119 Medications Medication Current Medications Acetaminophen (Tylenol Liquid) 650 mg Q4H PRN GTB MILD PAIN(1-3)OR ELEVATED TEMP Last administered on 11/05/18 23:55; Admin Dose 650 MG; Start 10/09/18 at 14:00 Al Hydrox/Mg Hydrox/Simethicone (Mag-Al Plus) 15 ml Q6H PRN PO GASTROINTESTINAL UPSET Last administered on 10/17/18 13:18; Admin Dose 15 ML; Start 10/09/18 at 14:00 Eye Lubricant (Artificial Tears Oph) 1 drop Q6H PRN BOTH EYES DRY EYES Last a dministered on 11/03/18at 09:33; Admin Dose 1 DROP; Start 10/09/18 at 14:00 Bisacodyl (Dulcolax Supp) 10 mg DAILY PRN [place] CONSTIPATION; Start 10/09/18 at 14:00 Clonidine (Catapres) 0.1 mg DAILY PRN GTB ELEVATED BLOOD PRESSURE; Start 10/09/18 at 14:00 Diltiazem HCl (Cardizem Iv) 5 mg Q4 PRN IV ELEVATED HEART RATE Last administered on 11/06/18 18:47; Admin Dose 5 MG; Start 10/09/18 at 14:00 Diphenhydramine HCl (Benadryl Liquid Cup) 25 mg Q6 PRN GTB ITCHING Last administered on 10/22/18 20:25; Admin Dose 25 MG; Start 10/09/18 at 14:00 Duloxetine HCl (Cymbalta) 30 mg DAILY PO Last administered on 11/14/18 08:18; Admin Dose 30 MG; Start 10/10/18 at 09:00 Gabapentin (Neurontin Liquid) 400 mg Q8 GTB Last administered on 11/14/18 05:21; Admin Dose 400 MG; Start 10/09/18 at 15:30 Hydralazine HCl (Apresoline) 10 mg Q4H PRN IV ELEVATED BLOOD PRESSURE; Start 10/09/18 at 14:00 Hydroxychloroquine Sulfate (Plaquenil) 200 mg BID PO Last administered on 11/14/18 08:18; Admin Dose 200 MG; Start 10/09/18 at 21:00 Diagnostic Test (Pha) (Accu-Chek) 1 ea 02 XX Last administered on 11/14/18 01:35; Admin Dose 1 EA; Start 10/10/18 at 02:00 Insulin Aspart (Novolog Insulin Pen) NOVOLOG *CUSTOM* ALGORITHM Q6H SC Last administered on 11/13/18 01:05; Admin Dose 1 UNIT; Start 10/09/18 at 14:00 Lactobacillus Acidophilus (Florajen3 Capsule) 1 each BID GTB Last administered on 11/14/18 08:18; Admin Dose 1 EACH; Start 10/09/18 at 21:00 Lansoprazole (Prevacid) 30 mg BID@06,18 GTB Last administered on 11/14/18 05:21; Admin Dose 30 MG; Start 10/09/18 at 18:00 Levetiracetam (Keppra Liquid) 500 mg BID GTB Last administered on 11/14/18at 08:17; Admin Dose 500 MG; Start 10/09/18 at 21:00 Magnesium Oxide (Mag-Ox 400) 400 mg BID GTB Last administered on 11/14/18at 08:19; Admin Dose 400 MG; Start 10/09/18 at 21:00 Metoclopramide HCl (Reglan) 10 mg TID IV Last administered on 11/14/18 08:19; Admin Dose 10 MG; Start 10/09/18 at 21:00 Miconazole Nitrate (Miconazole 2% Cr) 1 applic BID TOP Last administered on 11/14/18at 08:27; Admin Dose 1 APPLIC; Start 10/09/18 at 21:00 Miconazole Nitrate (Miconazole 2% Cr) 1 applic Q12 PRN TOP rash; Start 10/09/18 at 14:00 Ondansetron HCl (Zofran Inj) 4 mg Q4H PRN IV NAUSEA AND/OR VOMITING Last administered on 10/19/18at 16:37; Admin Dose 4 MG; Start 10/09/18 at 14:00 Polyethylene Glycol (Miralax) 17 gm DAILY PRN GTB CONSTIPATION; Start 10/09/18 at 14:00 Senna (Senokot) 2 tab Q8 PRN PO CONSTIPATION; Start 10/09/18 at 14:00 Trimethoprim/ Sulfamethoxazole (Bactrim Susp) 40 ml DAILY GTB Last administered on 11/13/18at 08:58; Admin Dose 40 ML; Start 10/10/18 at 09:00 Zolpidem Tartrate (Ambien) 5 mg HS PRN PO INSOMNIA Last administered on 11/03/18at 01:16; Admin Dose 5 MG; Start 10/09/18 at 14:00 Miscellaneous Information 1 ea NOTE XX ; Start 10/09/18 at 15:00 Glucose (Glutose) 15 gm Q15M PRN PO DECREASED GLUCOSE; Start 10/09/18 at 15:00 Glucose (Glutose) 22.5 gm Q15M PRN PO DECREASED GLUCOSE; Start 10/09/18 at 15:00 Dextrose (D50w Syringe) 25 ml Q15M PRN IV DECREASED GLUCOSE; Start 10/09/18 at 15:00 Dextrose (D50w Syringe) 50 ml Q15M PRN IV DECREASED GLUCOSE; Start 10/09/18 at 15:00 Glucagon (Glucagen) 1 mg Q15M PRN IM DECREASED GLUCOSE; Start 10/09/18 at 15:00 Glucose (Glutose) 15 gm Q15M PRN BUCCAL DECREASED GLUCOSE; Start 10/09/18 at 1 5:00 Albuterol (Ventolin Hfa) 4 puff Q6H RESP THERAPY INH Last administered on 11/14/18 01:47; Admin Dose 4 PUFF; Start 10/10/18 at 02:00 Ipratropium [place] (Atrovent Hfa) 4 puff Q6H RESP THERAPY INH Last administered on 11/14/18 01:47; Admin Dose 4 PUFF; Start 10/10/18 at 02:00 Lorazepam (Ativan) 1 mg Q4H PRN GTB AGITATION/ANXIETY Last administered on 11/05/18 20:35; Admin Dose 1 MG; Start 10/14/18 at 13:00 Linagliptin (Tradjenta) 5 mg DAILY PO Last administered on 11/14/18 08:19; Admin Dose 5 MG; Start 10/16/18 at 10:30 Fentanyl (Duragesic 50 Mcg/Hr Patch) 1 patch Q72H TRANSDERM Last administered on 11/11/18 04:38; Admin Dose 1 PATCH; Start 10/17/18 at 20:30; Status Hold Quetiapine Fumarate (Seroquel) 100 mg BID GTB Last administered on 11/14/18 08:18; Admin Dose 100 MG; Start 10/21/18 at 21:00 Calcium Carbonate (Ca Carbonate) 1,250 mg QID GTB Last administered on 11/14/18 08:17; Admin Dose 1,250 MG; Start 10/24/18 at 13:00 Metoprolol Tartrate (Lopressor) 5 mg Q4H PRN IV HR>110 Hold SBP<100 Last administered on 11/11/18 18:31; Admin Dose 5 MG; Start 10/28/18 at 12:30 Phenylephrine HCl 40 mg/Dextrose 250 ml @ 37.5 mls/hr TITRATE IV Last administered on 11/02/18 09:05; Admin Dose 11.25 MLS/HR; Start 11/01/18 at 13:30 IV Flush (NS 10 ml) 10 ml PRN PRN IV IV PROTOCOL; Start 11/01/18 at 16:30 Collagenase (Santyl) 1 applic DAILY TOP Last administered on 11/14/18 08:27; Admin Dose 1 APPLIC; Start 11/01/18 at 19:30 Norepinephrine 32 mg/Dextrose 250 ml @ 0.47 mls/hr TITRATE IV Last administered on 11/02/18 12:15; Admin Dose 0.47 MLS/HR; Start 11/02/18 at 11:30 Midodrine (Proamatine) 5 mg TID@09,13,17 GTB Last administered on 11/08/18 12:53; Admin Dose 5 MG; Start 11/03/18 at 09:00; Status Hold Guaifenesin (Robitussin Liquid Cup) 100 mg Q4H PRN PO COUGH Last administered on 11/13/18 17:58; Admin Dose 100 MG; Start 11/03/18 at 12:00 Hydrocortisone (Cortef) 20 mg QAM PEG Last administered on 11/14/18 08:18; Admin Dose 20 MG; Start 11/04/18 at 09:00 Hydrocortisone (Cortef) 20 mg AC DINNER PEG Last administered on 11/13/18 17:58; Admin Dose 20 MG; Start 11/04/18 at 17:05 Hydrocortisone (Cortef) 20 mg HS PEG Last administered on 11/13/18 20:22; Admin Dose 20 MG; Start 11/03/18 at 22:45 Calcitriol (Rocaltrol) 1.5 mcg BID PO Last administered on 11/14/18 08:18; Admin Dose 1.5 MCG; Start 11/07/18 at 21:00 Lorazepam (Ativan) 1 mg Q4 GTB Last administered on 11/14/18 08:17; Admin Dose 1 MG; Start 11/09/18 at 14:00 Carvedilol (Coreg) 6.25 mg BID PO Last administered on 11/14/18 08:18; Admin Dose 6.25 MG; Start 11/09/18 at 21:00 Benazepril HCl (Lotensin) 10 mg DAILY PO Last administered on 11/14/18 08:18; Admin Dose 10 MG; Start 11/10/18 at 09:00 Digoxin (Digoxin) 0.25 mg DAILY@13 PO Last administered on 11/13/18at 14:00; Admin Dose 0.25 MG; Start 11/11/18 at 13:00 Furosemide (Lasix) 20 mg DAILY IV Last administered on 11/14/18at 08:19; Admin Dose 20 MG; Start 11/10/18 at 12:30 Hydromorphone HCl (Dilaudid) 3 mg Q4H PRN PO MODERATE PAIN LEVEL 7-10 Last administered on 11/13/18at 17:59; Admin Dose 3 MG; Start 11/10/18 at 22:00 Cefepime HCl 50 ml @ 100 mls/hr Q12 IVPB Last administered on 11/14/18at 08:19; Admin Dose 100 MLS/HR; Start 11/10/18 at 23:30 Fentanyl 100 ml @ 2.5 mls/hr TITRATE IV ; Start 11/14/18 at 09:00 PILAR BERGER Nov 14, 2018 09:22
--- NOTE | 2018-11-14 09:40 | PN ---
DATE: 11/14/2018 SUBJECTIVE: The patient is stable, no events noted. No fevers, chills, nausea, vomiting. OBJECTIVE: VITAL SIGNS: Blood pressure is 140/85, respirations 24, pulse 120, temperature 98.7. HEENT: Head is normocephalic. NECK: Supple. HEART: Regular rate. LUNGS: Show diminished sounds at the base. ABDOMEN: Soft, nontender to palpation without rebound or guarding. EXTREMITIES: Negative for clubbing, cyanosis. Trace edema. DERMATOLOGIC: No rashes. MUSCULOSKELETAL: No joint effusion. NEUROLOGIC: No change in exam. MEDICATIONS: Reviewed. LABORATORY DATA: Fro, 11/14/2018 was reviewed. ASSESSMENT AND PLAN: 1. Nonoliguric acute kidney injury with previously normal baseline creatinine. Etiology is secondar y to hemodynamics. Renal function is resolved. 2. Volume overload, improved. Continue intermittent diuretic therapy. 3. Ventilator dependent respiratory failure. Vent settings and ABG was reviewed. Continue to monit or. 4. Adrenal insufficiency. The patient remains on Cortef. Continue to monitor. 5. Hypokalemia. Continue to monitor and replete as needed. 6. Hypertension. Blood pressure is improved, currently off management. Continue blood pressure reg imen. 7. Dysphagia, status post PEG. Continue tube feeding. 8. Seizure disorder. Continue medical management. 9. Hypomagnesemia. Continue to monitor and replete. 10. Mineral bone disorder, monitor calcium and phosphorus levels. Continue vitamin D analogs, calci um gluconate. 11. Status post shock. 12. Anxiety disorder. Dictated By: UNA ROY DO NR/NTS Conf#: [id number] DID#: [id number] CC: NOLA VIDAL MD;*EndCC*
[2018-11-14] MEDS: TRIMETHOPRIM/SULFAMETHOX (PO SYG) GTB SCH (10:20)
[2018-11-14] MEDS: FENTAnyl (DRIP) 1000 mcg/100mL 100 ML IV SCH (10:24)
--- NOTE | 2018-11-14 10:53 | CONS ---
Assessment/Plan Cardiology Heart Failure Type: Acute on Chronic Heart Failure Type: Systolic Assessment/Plan Hospital Course (Demo Recall) IMPRESSION: 1. Tachycardia- S tach. Ongoing Likley due to anxiety/infection/cardiomyopathy, multifactorial 2. Hypotension-now off pressors with HTN but labile 3. Abnormal electrocardiogram at baseline. 4. Chronic respiratory failure, status post tracheostomy.-weaning vent support 5. Dysphagia, status post G-tube. 6. Quadriplegia. 7. Renal insufficiency, on steroids. 8. Chronic obstructive pulmonary disease. 9. Rheumatoid arthritis. 10. Chronic kidney disease. 11. Diabetes mellitus. 12.Adrenal insufficiency 14. cardiomyopathy-EF 35-40% by echo this admit Recc -ICU -Ongoing Vent support with inability to wean from High percentage FI02 -Continue abx's and f/u cx data -continue steroids -Follow volume status -Continue coreg and ACEI as tolerated -Continue now po digoxin and follow HR closely -Contineu gentle lasix diuresis -started on fentanyl drip for patient comfort/tachypnea -Now DNR Consultation Date/Type/Reason Admit Date/Time Oct 09, 2018 at 12:16 Initial Consult Date 10/09/18 Type of Consult Cardiology Reason for Consultation cardiomyopathy Requesting Provider: NOLA VIDAL MD Date/Time of Note DATE: 11/14/18 TIME: 10:50 Exam/Review of Systems Vital Signs Vitals Vital Signs Date Temp Pulse Resp B/P (MAP) Pulse Ox O2 O2 Flow FiO2 Time Delivery Rate 11/14/18 123 29 107/68 87 Mechanical 10:00 (81) Ventilator 11/14/18 100 08:00 11/14/18 99.1 08:00 Intake and Output 11/13/18 11/13/18 11/14/18 1515:00 23:00 07:00 IntakeIntake Total 590 ml 340 ml 330 ml OutputOutput Total 575 ml 575 ml 375 ml BalanceBalance 15 ml -235 ml -45 ml Exam Exam Review of Systems: CONSTITUTIONAL: No fevers, chills. PULMONARY: trached CARDIOVASCULAR: No chest pain/palpitations GASTROINTESTINAL: No nausea/vomiting. GENITOURINARY: No hematuria/dysuria. MUSCULOSKELETAL: No myagias/arthalgias. PSYCHIATRIC: The patient denies depression. NEUROLOGIC: quad Constitutional: alert Psych: no complaints Head: normocephalic ENMT: mucosa pink and moist Neck: supple, other (trached) Respiratory: diminished breath sounds (at bases/B) Cardiovascular: other (tachycardic, regular rhythm) Gastrointestinal: soft, non-tender Musculoskeletal: muscle weakness (generalized) Extremities: edema (none) Neurological: other (No focal deficits) Labs Result Diagram: 11/14/18 0443 11/14/18 0443 Results 24hrs Laboratory Tests Test 11/13/18 14:02 11/13/18 20:21 11/14/18 01:26 11/14/18 04:43 Bedside Glucose 131 126 149 White Blood Count 12.3 H Red Blood Count 3.10 L Hemoglobin 8.6 L Hematocrit 29.8 L Mean Corpuscular 96.1 Volume Mean Corpuscular 27.7 L Hemoglobin Mean Corpuscular 28.9 L Hemoglobin Concent Red Cell Distribution 15.9 H Width Platelet Count 418 H Mean Platelet Volume 10.8 H Immature Granulocytes 1.900 H % Neutrophils % 63.3 Lymphocytes % 6.4 L Monocytes % 11.3 H Eosinophils % 16.1 H Basophils % 1.0 Nucleated Red Blood 0.0 Cells % Immature Granulocytes 0.230 H # Neutrophils # 7.8 H Lymphocytes # 0.8 Monocytes # 1.4 H Eosinophils # 2.0 H Basophils # 0.1 Nucleated Red Blood 0.0 Cells # Sodium Level 140 Potassium Level 3.9 Chloride Level 90 L Carbon Dioxide Level 45 *H Anion Gap 5 Blood Urea Nitrogen 29 H Creatinine 0.38 L Est Glomerular Filtrat > 60 Rate mL/min Glucose Level 117 Calcium Level 8.5 Test 11/14/18 08:48 Bedside Glucose 119 Medications Medications Current Medications Acetaminophen (Tylenol Liquid) 650 mg Q4H PRN GTB MILD PAIN(1-3)OR ELEVATED TEMP Last administered on 11/05/18at 23:55; Admin Dose 650 MG; Start 10/09/18 at 14:00 Al Hydrox/Mg Hydrox/Simethicone (Mag-Al Plus) 15 ml Q6H PRN PO GASTROINTESTINAL UPSET Last administered on 10/17/18at 13:18; Admin Dose 15 ML; Start 10/09/18 at 14:00 Eye Lubricant (Artificial Tears Oph) 1 drop Q6H PRN BOTH EYES DRY EYES Last administered on 11/03/18at 09:33; Admin Dose 1 DROP; Start 10/09/18 at 14:00 Bisacodyl (Dulcolax Supp) 10 mg DAILY PRN [place] CONSTIPATION; Start 10/09/18 at 14:00 Clonidine (Catapres) 0.1 mg DAILY PRN GTB ELEVATED BLOOD PRESSURE; Start 10/09/18 at 14:00 Diltiazem HCl (Cardizem Iv) 5 mg Q4 PRN IV ELEVATED HEART RATE Last administered on 11/06/18 18:47; Admin Dose 5 MG; Start 10/09/18 at 14:00 Diphenhydramine HCl (Benadryl Liquid Cup) 25 mg Q6 PRN GTB ITCHING Last administered on 10/22/18 20:25; Admin Dose 25 MG; Start 10/09/18 at 14:00 Duloxetine HCl (Cymbalta) 30 mg DAILY PO Last administered on 11/14/18 08:18; Admin Dose 30 MG; Start 10/10/18 at 09:00 Gabapentin (Neurontin Liquid) 400 mg Q8 GTB Last administered on 11/14/18 05:21; Admin Dose 400 MG; Start 10/09/18 at 15:30 Hydralazine HCl (Apresoline) 10 mg Q4H PRN IV ELEVATED BLOOD PRESSURE; Start 10/09/18 at 14:00 Hydroxychloroquine Sulfate (Plaquenil) 200 mg BID PO Last administered on 08:18; Admin Dose 200 MG; Start 10/09/18 at 21:00 Diagnostic Test (Pha) (Accu-Chek) 1 ea 02 XX Last administered on 11/14/18 01:35; Admin Dose 1 EA; Start 10/10/18 at 02:00 Insulin Aspart (Novolog Insulin Pen) NOVOLOG *CUSTOM* ALGORITHM Q6H SC Last administered on 11/13/18 01:05; Admin Dose 1 UNIT; Start 10/09/18 at 14:00 Lactobacillus Acidophilus (Florajen3 Capsule) 1 each BID GTB Last administered on 11/14/18 08:18; Admin Dose 1 EACH; Start 10/09/18 at 21:00 Lansoprazole (Prevacid) 30 mg BID@,18 GTB Last administered on 11/14/18 05:21; Admin Dose 30 MG; Start 10/09/18 at 18:00 Levetiracetam (Keppra Liquid) 500 mg BID GTB Last administered on 11/14/18 08:17; Admin Dose 500 MG; Start 10/09/18 at 21:00 Magnesium Oxide (Mag-Ox 400) 400 mg BID GTB Last administered on 11/14/18 08:19; Admin Dose 400 MG; Start 10/09/18 at 21:00 Metoclopramide HCl (Reglan) 10 mg TID IV Last administered on 11/14/18 08:19; Admin Dose 10 MG; Start 10/09/18 at 21:00 Miconazole Nitrate (Miconazole 2% Cr) 1 applic BID TOP Last administered on 11/14/18 08:27; Admin Dose 1 APPLIC; Start 10/09/18 at 21:00 Miconazole Nitrate (Miconazole 2% Cr) 1 applic Q12 PRN TOP rash; Start 10/09/18 at 14:00 Ondansetron HCl (Zofran Inj) 4 mg Q4H PRN IV NAUSEA AND/OR VOMITING Last administered on 10/19/18at 16:37; Admin Dose 4 MG; Start 10/09/18 at 14:00 Polyethylene Glycol (Miralax) 17 gm DAILY PRN GTB CONSTIPATION; Start 10/09/18 at 14:00 Senna (Senokot) 2 tab Q8 PRN PO CONSTIPATION; Start 10/09/18 at 14:00 Trimethoprim/ Sulfamethoxazole (Bactrim Susp) 40 ml DAILY GTB Last administered on 11/14/18at 10:20; Admin Dose 40 ML; Start 10/10/18 at 09:00 Zolpidem Tartrate (Ambien) 5 mg HS PRN PO INSOMNIA Last administered on 11/03/18at 01:16; Admin Dose 5 MG; Start 10/09/18 at 14:00 Miscellaneous Information 1 ea NOTE XX ; Start 10/09/18 at 15:00 Glucose (Glutose) 15 gm Q15M PRN PO DECREASED GLUCOSE; Start 10/09/18 at 15:00 Glucose (Glutose) 22.5 gm Q15M PRN PO DECREASED GLUCOSE; Start 10/09/18 at 15:00 Dextrose (D50w Syringe) 25 ml Q15M PRN IV DECREASED GLUCOSE; Start 10/09/18 at 15:00 Dextrose (D50w Syringe) 50 ml Q15M PRN IV DECREASED GLUCOSE; Start 10/09/18 at 15:00 Glucagon (Glucagen) 1 mg Q15M PRN IM DECREASED GLUCOSE; Start 10/09/18 at 15:00 Glucose (Glutose) 15 gm Q15M PRN BUCCAL DECREASED GLUCOSE; Start 10/09/18 at 15:00 Albuterol (Ventolin Hfa) 4 puff Q6H RESP THERAPY INH Last administered on 11/14/18 01:47; Admin Dose 4 PUFF; Start 10/10/18 at 02:00 Ipratropium [place] (Atrovent Hfa) 4 puff Q6H RESP THERAPY INH Last administered on 11/14/18 01:47; Admin Dose 4 PUFF; Start 10/10/18 at 02:00 Lorazepam (Ativan) 1 mg Q4H PRN GTB AGITATION/ANXIETY Last administered on 11/05/18 20:35; Admin Dose 1 MG; Start 10/14/18 at 13:00 Linagliptin (Tradjenta) 5 mg DAILY PO Last administered on 11/14/18 08:19; Admin Dose 5 MG; Start 10/16/18 at 10:30 Fentanyl (Duragesic 50 Mcg/Hr Patch) 1 patch Q72H TRANSDERM Last administered on 11/11/18 04:38; Admin Dose 1 PATCH; Start 10/17/18 at 20:30; Status Hold Quetiapine Fumarate (Seroquel) 100 mg BID GTB Last administered on 11/14/18 08:18; Admin Dose 100 MG; Start 10/21/18 at 21:00 Calcium Carbonate (Ca Carbonate) 1,250 mg QID GTB Last administered on 11/14/18 08:17; Admin Dose 1,250 MG; Start 10/24/18 at 13:00 Metoprolol Tartrate (Lopressor) 5 mg Q4H PRN IV HR>110 Hold SBP<100 Last administered on 11/11/18 18:31; Admin Dose 5 MG; Start 10/28/18 at 12:30 Phenylephrine HCl 40 mg/Dextrose 250 ml @ 37.5 mls/hr TITRATE IV Last administered on 11/02/18 09:05; Admin Dose 11.25 MLS/HR; Start 11/01/18 at 13:30 IV Flush (NS 10 ml) 10 ml PRN PRN IV IV PROTOCOL; Start 11/01/18 at 16:30 Collagenase (Santyl) 1 applic DAILY TOP Last administered on 11/14/18 08:27; Admin Dose 1 APPLIC; Start 11/01/18 at 19:30 Norepinephrine 32 mg/Dextrose 250 ml @ 0.47 mls/hr TITRATE IV Last administered on 11/02/18 12:15; Admin Dose 0.47 MLS/HR; Start 11/02/18 at 11:30 Midodrine (Proamatine) 5 mg TID@09,13,17 GTB Last administered on 11/08/18 12:53; Admin Dose 5 MG; Start 11/03/18 at 09:00; Status Hold Guaifenesin (Robitussin Liquid Cup) 100 mg Q4H PRN PO COUGH Last administered on 11/13/18 17:58; Admin Dose 100 MG; Start 11/03/18 at 12:00 Hydrocortisone (Cortef) 20 mg QAM PEG Last administered on 11/14/18 08:18; Admi n Dose 20 MG; Start 11/04/18 at 09:00 Hydrocortisone (Cortef) 20 mg AC DINNER PEG Last administered on 11/13/18 17:58; Admin Dose 20 MG; Start 11/04/18 at 17:05 Hydrocortisone (Cortef) 20 mg HS PEG Last administered on 11/13/18 20:22; Admin Dose 20 MG; Start 11/03/18 at 22:45 Calcitriol (Rocaltrol) 1.5 mcg BID PO Last administered on 11/14/18 08:18; Admin Dose 1.5 MCG; Start 11/07/18 at 21:00 Lorazepam (Ativan) 1 mg Q4 GTB Last administered on 11/14/18 08:17; Admin Dose 1 MG; Start 11/09/18 at 14:00 Carvedilol (Coreg) 6.25 mg BID PO Last administered on 11/14/18 08:18; Admin Dose 6.25 MG; Start 11/09/18 at 21:00 Benazepril HCl (Lotensin) 10 mg DAILY PO Last administered on 11/14/18 08:18; Admin Dose 10 MG; Start 11/10/18 at 09:00 Digoxin (Digoxin) 0.25 mg DAILY@13 PO Last administered on 11/13/18at 14:00; Admin Dose 0.25 MG; Start 11/11/18 at 13:00 Furosemide (Lasix) 20 mg DAILY IV Last administered on 11/14/18at 08:19; Admin Dose 20 MG; Start 11/10/18 at 12:30 Hydromorphone HCl (Dilaudid) 3 mg Q4H PRN PO MODERATE PAIN LEVEL 7-10 Last administered on 11/13/18at 17:59; Admin Dose 3 MG; Start 11/10/18 at 22:00 Cefepime HCl 50 ml @ 100 mls/hr Q12 IVPB Last administered on 11/14/18at 08:19; Admin Dose 100 MLS/HR; Start 11/10/18 at 23:30 Fentanyl 100 ml @ 2.5 mls/hr TITRATE IV Last administered on 11/14/18at 10:24; Admin Dose 2.5 MLS/HR; Start 11/14/18 at 09:00 BRISA HAQUE Nov 14, 2018 10:53
--- NOTE | 2018-11-14 11:26 | CONS ---
Assessment/Plan Assessment/Plan Hospital Course (Demo Recall) EMR reviewed. 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 Care coordinated and directed. Consultation Date/Type/Reason Admit Date/Time Oct 09, 2018 at 12:16 Initial Consult Date 10/12/18 Requesting Provider: NOLA VIDAL MD Date/Time of Note DATE: 11/14/18 TIME: 11:24 Exam/Review of Systems Exam Vitals Vital Signs Date Temp Pulse Resp B/P (MAP) Pulse Ox O2 O2 Flow FiO2 Time Delivery Rate 11/14/18 123 29 107/68 87 Mechanical 10:00 (81) Ventilator 11/14/18 100 08:00 11/14/18 99.1 08:00 Intake and Output 11/13/18 11/13/18 11/14/18 1515:00 23:00 07:00 IntakeIntake Total 590 ml 340 ml 330 ml OutputOutput Total 575 ml 575 ml 375 ml BalanceBalance 15 ml -235 ml -45 ml Results Result Diagram: 11/14/18 0443 11/14/18 0443 Results 24hrs Laboratory Tests Test 11/13/18 14:02 11/13/18 20:21 11/14/18 01:26 11/14/18 04:43 Bedside Glucose 131 126 149 White Blood Count 12.3 H Red Blood Count 3.10 L Hemoglobin 8.6 L Hematocrit 29.8 L Mean Corpuscular 96.1 Volume Mean Corpuscular 27.7 L Hemoglobin Mean Corpuscular 28.9 L Hemoglobin Concent Red Cell Distribution 15.9 H Width Platelet Count 418 H Mean Platelet Volume 10.8 H Immature Granulocytes 1.900 H % Neutrophils % 63.3 Lymphocytes % 6.4 L Monocytes % 11.3 H Eosinophils % 16.1 H Basophils % 1.0 Nucleated Red Blood 0.0 Cells % Immature Granulocytes 0.230 H # Neutrophils # 7.8 H Lymphocytes # 0.8 Monocytes # 1.4 H Eosinophils # 2.0 H Basophils # 0.1 Nucleated Red Blood 0.0 Cells # Sodium Level 140 Potassium Level 3.9 Chloride Level 90 L Carbon Dioxide Level 45 *H Anion Gap 5 Blood Urea Nitrogen 29 H Creatinine 0.38 L Est Glomerular Filtrat > 60 Rate mL/min Glucose Level 117 Calcium Level 8.5 Test 11/14/18 08:48 Bedside Glucose 119 Medications Medication Current Medications Acetaminophen (Tylenol Liquid) 650 mg Q4H PRN GTB MILD PAIN(1-3)OR ELEVATED TEMP Last administered on 11/05/18 23:55; Admin Dose 650 MG; Start 10/09/18 at 14:00 Al Hydrox/Mg Hydrox/Simethicone (Mag-Al Plus) 15 ml Q6H PRN PO GASTROINTESTINAL UPSET Last administered on 10/17/18 13:18; Admin Dose 15 ML; Start 10/09/18 at 14:00 Eye Lubricant (Artificial Tears Oph) 1 drop Q6H PRN BOTH EYES DRY EYES Last administered on 11/03/18 09:33; Admin Dose 1 DROP; Start 10/09/18 at 14:00 Bisacodyl (Dulcolax Supp) 10 mg DAILY PRN [place] CONSTIPATION; Start 10/09/18 at 14:00 Clonidine (Catapres) 0.1 mg DAILY PRN GTB ELEVATED BLOOD PRESSURE; Start 10/09/18 at 14:00 Diltiazem HCl (Cardizem Iv) 5 mg Q4 PRN IV ELEVATED HEART RATE Last administered on 11/06/18 18:47; Admin Dose 5 MG; Start 10/09/18 at 14:00 Diphenhydramine HCl (Benadryl Liquid Cup) 25 mg Q6 PRN GTB ITCHING Last administered on 10/22/18 20:25; Admin Dose 25 MG; Start 10/09/18 at 14:00 Duloxetine HCl (Cymbalta) 30 mg DAILY PO Last administered on 11/14/18 08:18; Admin Dose 30 MG; Start 10/10/18 at 09:00 Gabapentin (Neurontin Liquid) 400 mg Q8 GTB Last administered on 11/14/18 05:21; Admin Dose 400 MG; Start 10/09/18 at 15:30 Hydralazine HCl (Apresoline) 10 mg Q4H PRN IV ELEVATED BLOOD PRESSURE; Start 10/09/18 at 14:00 Hydroxychloroquine Sulfate (Plaquenil) 200 mg BID PO Last administered on 11/14/18 08:18; Admin Dose 200 MG; Start 10/09/18 at 21:00 Diagnostic Test (Pha) (Accu-Chek) 1 ea 02 XX Last administered on 11/14/18 01:35; Admin Dose 1 EA; Start 10/10/18 at 02:00 Insulin Aspart (Novolog Insulin Pen) NOVOLOG *CUSTOM* ALGORITHM Q6H SC Last administered on 11/13/18 01:05; Admin Dose 1 UNIT; Start 10/09/18 at 14:00 Lactobacillus Acidophilus (Florajen3 Capsule) 1 each BID GTB Last administered on 11/14/18 08:18; Admin Dose 1 EACH; Start 10/09/18 at 21:00 Lansoprazole (Prevacid) 30 mg BID@,18 GTB Last administered on 11/14/18 05: 21; Admin Dose 30 MG; Start 10/09/18 at 18:00 Levetiracetam (Keppra Liquid) 500 mg BID GTB Last administered on 11/14/18 08:17; Admin Dose 500 MG; Start 10/09/18 at 21:00 Magnesium Oxide (Mag-Ox 400) 400 mg BID GTB Last administered on 11/14/18 08:19; Admin Dose 400 MG; Start 10/09/18 at 21:00 Metoclopramide HCl (Reglan) 10 mg TID IV Last administered on 11/14/18 08:19; Admin Dose 10 MG; Start 10/09/18 at 21:00 Miconazole Nitrate (Miconazole 2% Cr) 1 applic BID TOP Last administered on 11/14/18 08:27; Admin Dose 1 APPLIC; Start 10/09/18 at 21:00 Miconazole Nitrate (Miconazole 2% Cr) 1 applic Q12 PRN TOP rash; Start 10/09/18 at 14:00 Ondansetron HCl (Zofran Inj) 4 mg Q4H PRN IV NAUSEA AND/OR VOMITING Last administered on 10/19/18 16:37; Admin Dose 4 MG; Start 10/09/18 at 14:00 Polyethylene Glycol (Miralax) 17 gm DAILY PRN GTB CONSTIPATION; Start 10/09/18 at 14:00 Senna (Senokot) 2 tab Q8 PRN PO CONSTIPATION; Start 10/09/18 at 14:00 Trimethoprim/ Sulfamethoxazole (Bactrim Susp) 40 ml DAILY GTB Last administered on 11/14/18 10:20; Admin Dose 40 ML; Start 10/10/18 at 09:00 Zolpidem Tartrate (Ambien) 5 mg HS PRN PO INSOMNIA Last administered on 11/03/18 01:16; Admin Dose 5 MG; Start 10/09/18 at 14:00 Miscellaneous Information 1 ea NOTE XX ; Start 10/09/18 at 15:00 Glucose (Glutose) 15 gm Q15M PRN PO DECREASED GLUCOSE; Start 10/09/18 at 15:00 Glucose (Glutose) 22.5 gm Q15M PRN PO DECREASED GLUCOSE; Start 10/09/18 at 15:00 Dextrose (D50w Syringe) 25 ml Q15M PRN IV DECREASED GLUCOSE; Start 10/09/18 at 15:00 Dextrose (D50w Syringe) 50 ml Q15M PRN IV DECREASED GLUCOSE; Start 10/09/18 at 15:00 Glucagon (Glucagen) 1 mg Q15M PRN IM DECREASED GLUCOSE; Start 10/09/18 at 15:00 Glucose (Glutose) 15 gm Q15M PRN BUCCAL DECREASED GLUCOSE; Start 10/09/18 at 15:00 Albuterol (Ventolin Hfa) 4 puff Q6H RESP THERAPY INH Last administered on 11/14/18 01:47; Admin Dose 4 PUFF; Start 10/10/18 at 02:00 Ipratropium [place] (Atrovent Hfa) 4 puff Q6H RESP THERAPY INH Last admin istered on 11/14/18 01:47; Admin Dose 4 PUFF; Start 10/10/18 at 02:00 Lorazepam (Ativan) 1 mg Q4H PRN GTB AGITATION/ANXIETY Last administered on 11/05/18at 20:35; Admin Dose 1 MG; Start 10/14/18 at 13:00 Linagliptin (Tradjenta) 5 mg DAILY PO Last administered on 11/14/18 08:19; Admin Dose 5 MG; Start 10/16/18 at 10:30 Quetiapine Fumarate (Seroquel) 100 mg BID GTB Last administered on 11/14/18 08:18; Admin Dose 100 MG; Start 10/21/18 at 21:00 Calcium Carbonate (Ca Carbonate) 1,250 mg QID GTB Last administered on 11/14/18 08:17; Admin Dose 1,250 MG; Start 10/24/18 at 13:00 Metoprolol Tartrate (Lopressor) 5 mg Q4H PRN IV HR>110 Hold SBP<100 Last administered on 11/11/18 18:31; Admin Dose 5 MG; Start 10/28/18 at 12:30 Phenylephrine HCl 40 mg/Dextrose 250 ml @ 37.5 mls/hr TITRATE IV Last ad ministered on 11/02/18 09:05; Admin Dose 11.25 MLS/HR; Start 11/01/18 at 13:30 IV Flush (NS 10 ml) 10 ml PRN PRN IV IV PROTOCOL; Start 11/01/18 at 16:30 Collagenase (Santyl) 1 applic DAILY TOP Last administered on 11/14/18 08:27; Admin Dose 1 APPLIC; Start 11/01/18 at 19:30 Norepinephrine 32 mg/Dextrose 250 ml @ 0.47 mls/hr TITRATE IV Last administered on 11/02/18 12:15; Admin Dose 0.47 MLS/HR; Start 11/02/18 at 11:30 Midodrine (Proamatine) 5 mg TID@,13,17 GTB Last administered on 11/08/18 12:53; Admin Dose 5 MG; Start 11/03/18 at 09:00; Status Hold Guaifenesin (Robitussin Liquid Cup) 100 mg Q4H PRN PO COUGH Last administered on 11/13/18 17:58; Admin Dose 100 MG; Start 11/03/18 at 12:00 Hydrocortisone (Cortef) 20 mg QAM PEG Last administered on 11/14/18 08:18; Admin Dose 20 MG; Start 11/04/18 at 09:00 Hydrocortisone (Cortef) 20 mg AC DINNER PEG Last administered on 11/13/18 17:58; Admin Dose 20 MG; Start 11/04/18 at 17:05 Hydrocortisone (Cortef) 20 mg HS PEG Last administered on 11/13/18 20:22; Admin Dose 20 MG; Start 11/03/18 at 22:45 Calcitriol (Rocaltrol) 1.5 mcg BID PO Last administered on 11/14/18 08:18; Admin Dose 1.5 MCG; Start 11/07/18 at 21:00 Lorazepam (Ativan) 1 mg Q4 GTB Last administered on 11/14/18 08:17; Admin Dose 1 MG; Start 11/09/18 at 14:00 Carvedilol (Coreg) 6.25 mg BID PO Last administered on 11/14/18 08:18; Admin Dose 6.25 MG; Start 11/09/18 at 21:00 Benazepril HCl (Lotensin) 10 mg DAILY PO Last administered on 11/14/18 08:18; Admin Dose 10 MG; Start 11/10/18 at 09:00 Digoxin (Digoxin) 0.25 mg DAILY@13 PO Last administered on 11/13/18 14:00; Admin Dose 0.25 MG; Start 11/11/18 at 13:00 Furosemide (Lasix) 20 mg DAILY IV Last administered on 11/14/18 08:19; Admin Dose 20 MG; Start 11/10/18 at 12:30 Hydromorphone HCl (Dilaudid) 3 mg Q4H PRN PO MODERATE PAIN LEVEL 7-10 Last administered on 11/13/18 17:59; Admin Dose 3 MG; Start 11/10/18 at 22:00 Cefepime HCl 50 ml @ 100 mls/hr Q12 IVPB Last administered on 11/14/18 08:19; Admin Dose 100 MLS/HR; Start 11/10/18 at 23:30 Fentanyl 100 ml @ 2.5 mls/hr TITRATE IV Last administered on 11/14/18at 10:24; Admin Dose 2.5 MLS/HR; Start 11/14/18 at 09:00 CAMELIA VALENTINE MD Nov 14, 2018 11:26
--- NOTE | 2018-11-14 12:45 | PN ---
Date/Time of Note Date/Time of Note DATE: 11/14/18 TIME: 12:40 Assessment/Plan VTE Prophylaxis Risk score (from Ns)>0 risk: 8 SCD applied (from Ns): Yes Pharmacological prophylaxis: NA/contraindicated Pharm contraindication: bleeding Lines/Catheters IV Catheter Type (from Nrsg): PICC Line Central line still needed: Yes Urinary Cath still in place: No Reason Cath still needed: urinary retention Assessment/Plan Hospital Course Patient is tachycardic, hypoxic on 100% FiO2 pressure mode and PEEP of 10 currently on fentanyl drip for pain control. Assessment/Plan - Acute on chronic hypoxemic respiratory failure with underlying ARDS, continue ventilatory support. Dr. Villa is following in pulmonology consultation. - Acute kidney injury, resolved, continue to monitor BUN and creatinine. Dr. Hobson is following in nephrology consultation. -Tachycardia, Dr. Joshi is following in cardiology consultation. - Cardiomyopathy with EF 35-40% - Rheumatoid arthritis with steroid dependence. - Dysphagia. Continue GT feeding. - Anemia of chronic disease. - Hypoparathyroidism - Hypertension. - Functional quadriplegia - Hx of severe cervical spinal cord stenosis with cord compression from C3-C5, s/p laminectomy. - History of fibromyalgia rheumatica - Hx of VAT on 08/11/2018 - Poor prognosis, Dr. Zurita is following in palliative care consultation. - DNR status Critical care time spent 30 minutes. Further recommendations based on clinical course. Plan of care discussed with Dr. Rosales Result Diagram: 11/14/18 0443 11/14/18 0443 Results 24hrs Laboratory Tests Test 11/13/18 14:02 11/13/18 20:21 11/14/18 01:26 11/14/18 04:43 Bedside Glucose 131 126 149 White Blood Count 12.3 H Red Blood Count 3.10 L Hemoglobin 8.6 L Hematocrit 29.8 L Mean Corpuscular 96.1 Volume Mean Corpuscular 27.7 L Hemoglobin Mean Corpuscular 28.9 L Hemoglobin Concent Red Cell Distribution 15.9 H Width Platelet Count 418 H Mean Platelet Volume 10.8 H Immature Granulocytes 1.900 H % Neutrophils % 63.3 Lymphocytes % 6.4 L Monocytes % 11.3 H Eosinophils % 16.1 H Basophils % 1.0 Nucleated Red Blood 0.0 Cells % Immature Granulocytes 0.230 H # Neutrophils # 7.8 H Lymphocytes # 0.8 Monocytes # 1.4 H Eosinophils # 2.0 H Basophils # 0.1 Nucleated Red Blood 0.0 Cells # Sodium Level 140 Potassium Level 3.9 Chloride Level 90 L Carbon Dioxide Level 45 *H Anion Gap 5 Blood Urea Nitrogen 29 H Creatinine 0.38 L Est Glomerular Filtrat > 60 Rate mL/min Glucose Level 117 Calcium Level 8.5 Test 11/14/18 08:48 Bedside Glucose 119 Exam/Review of Systems Exam Vitals Vital Signs Date Temp Pulse Resp B/P (MAP) Pulse Ox O2 O2 Flow FiO2 Time Delivery Rate 11/14/18 123 29 107/68 87 Mechanical 10:00 (81) Ventilator 11/14/18 100 08:00 11/14/18 99.1 08:00 Intake and Output 11/13/18 11/13/18 11/14/18 1515:00 23:00 07:00 IntakeIntake Total 590 ml 340 ml 330 ml OutputOutput Total 575 ml 575 ml 375 ml BalanceBalance 15 ml -235 ml -45 ml Exam Constitutional: alert, oriented, frail Neck: other (trach) Respiratory: diminished breath sounds Cardiovascular: regular rate and rhythm Gastrointestinal: soft, non-tender, other Neurological: nl mental status Results Results 24hrs Laboratory Tests Test 11/13/18 14:02 11/13/18 20:21 11/14/18 01:26 11/14/18 04:43 Bedside Glucose 131 126 149 White Blood Count 12.3 H Red Blood Count 3.10 L Hemoglobin 8.6 L Hematocrit 29.8 L Mean Corpuscular 96.1 Volume Mean Corpuscular 27.7 L Hemoglobin Mean Corpuscular 28.9 L Hemoglobin Concent Red Cell Distribution 15.9 H Width Platelet Count 418 H Mean Platelet Volume 10.8 H Immature Granulocytes 1.900 H % Neutrophils % 63.3 Lymphocytes % 6.4 L Monocytes % 11.3 H Eosinophils % 16.1 H Basophils % 1.0 Nucleated Red Blood 0.0 Cells % Immature Granulocytes 0.230 H # Neutrophils # 7.8 H Lymphocytes # 0.8 Monocytes # 1.4 H Eosinophils # 2.0 H Basophils # 0.1 Nucleated Red Blood 0.0 Cells # Sodium Level 140 Potassium Level 3.9 Chloride Level 90 L Carbon Dioxide Level 45 *H Anion Gap 5 Blood Urea Nitrogen 29 H Creatinine 0.38 L Est Glomerular Filtrat > 60 Rate mL/min Glucose Level 117 Calcium Level 8.5 Test 11/14/18 08:48 Bedside Glucose 119 Medications Medication Current Medications Acetaminophen (Tylenol Liquid) 650 mg Q4H PRN GTB MILD PAIN(1-3)OR ELEVATED TEMP Last administered on 11/05/18 23:55; Admin Dose 650 MG; Start 10/09/18 at 14:00 Al Hydrox/Mg Hydrox/Simethicone (Mag-Al Plus) 15 ml Q6H PRN PO GASTROINTESTINAL UPSET Last administered on 10/17/18 13:18; Admin Dose 15 ML; Start 10/09/18 at 14:00 Eye Lubricant (Artificial Tears Oph) 1 drop Q6H PRN BOTH EYES DRY EYES Last administered on 11/03/18 09:33; Admin Dose 1 DROP; Start 10/09/18 at 14:00 Bisacodyl (Dulcolax Supp) [address] CONSTIPATION; Start 10/09/18 at 14:00 Clonidine (Catapres) 0.1 mg DAILY PRN GTB ELEVATED BLOOD PRESSURE; Start 10/09/18 at 14:00 Diltiazem HCl (Cardizem Iv) 5 mg Q4 PRN IV ELEVATED HEART RATE Last administered on 11/06/18 18:47; Admin Dose 5 MG; Start 10/09/18 at 14:00 Diphenhydramine HCl (Benadryl Liquid Cup) 25 mg Q6 PRN GTB ITCHING Last administered on 10/22/18 20:25; Admin Dose 25 MG; Start 10/09/18 at 14:00 Duloxetine HCl (Cymbalta) 30 mg DAILY PO Last administered on 11/14/18 08:18; Admin Dose 30 MG; Start 10/10/18 at 09:00 Gabapentin (Neurontin Liquid) 400 mg Q8 GTB Last administered on 11/14/18 05:21; Admin Dose 400 MG; Start 10/09/18 at 15:30 Hydralazine HCl (Apresoline) 10 mg Q4H PRN IV ELEVATED BLOOD PRESSURE; Start 10/09/18 at 14:00 Hydroxychloroquine Sulfate (Plaquenil) 200 mg BID PO Last administered on 11/14/18 08:18; Admin Dose 200 MG; Start 10/09/18 at 21:00 Diagnostic Test (Pha) (Accu-Chek) 1 ea 02 XX Last administered on 11/14/18 01:35; Admin Dose 1 EA; Start 10/10/18 at 02:00 Insulin Aspart (Novolog Insulin Pen) NOVOLOG *CUSTOM* ALGORITHM Q6H SC Last administered on 11/13/18 01:05; Admin Dose 1 UNIT; Start 10/09/18 at 14:00 Lactobacillus Acidophilus (Florajen3 Capsule) 1 each BID GTB Last administered on 11/14/18 08:18; Admin Dose 1 EACH; Start 10/09/18 at 21:00 Lansoprazole (Prevacid) 30 mg BID@18 GTB Last administered on 11/14/18 05:21; Admin Dose 30 MG; Start 10/09/18 at 18:00 Levetiracetam (Keppra Liquid) 500 mg BID GTB Last administered on 11/14/18 08:17; Admin Dose 500 MG; Start 10/09/18 at 21:00 Magnesium Oxide (Mag-Ox 400) 400 mg BID GTB Last administered on 11/14/18 08:19; Admin Dose 400 MG; Start 10/09/18 at 21:00 Metoclopramide HCl (Reglan) 10 mg TID IV Last administered on 11/14/18 08:19; Admin Dose 10 MG; Start 10/09/18 at 21:00 Miconazole Nitrate (Miconazole 2% Cr) 1 applic BID TOP Last administered on 11/14/18 08:27; Admin Dose 1 APPLIC; Start 10/09/18 at 21:00 Miconazole Nitrate (Miconazole 2% Cr) 1 applic Q12 PRN TOP rash; Start 10/09/18 at 14:00 Ondansetron HCl (Zofran Inj) 4 mg Q4H PRN IV NAUSEA AND/OR VOMITING Last administered on 10/19/18 16:37; Admin Dose 4 MG; Start 10/09/18 at 14:00 Polyethylene Glycol (Miralax) 17 gm DAILY PRN GTB CONSTIPATION; Start 10/09/18 at 14:00 Senna (Senokot) 2 tab Q8 PRN PO CONSTIPATION; Start 10/09/18 at 14:00 Trimethoprim/ Sulfamethoxazole (Bactrim Susp) 40 ml DAILY GTB Last administered on 11/14/18at 10:20; Admin Dose 40 ML; Start 10/10/18 at 09:00 Zolpidem Tartrate (Ambien) 5 mg HS PRN PO INSOMNIA Last administered on 11/03/18at 01:16; Admin Dose 5 MG; Start 10/09/18 at 14:00 Miscellaneous Information 1 ea NOTE XX ; Start 10/09/18 at 15:00 Glucose (Glutose) 15 gm Q15M PRN PO DECREASED GLUCOSE; Start 10/09/18 at 15:00 Glucose (Glutose) 22.5 gm Q15M PRN PO DECREASED GLUCOSE; Start 10/09/18 at 15:00 Dextrose (D50w Syringe) 25 ml Q15M PRN IV DECREASED GLUCOSE; Start 10/09/18 at 15:00 Dextrose (D50w Syringe) 50 ml Q15M PRN IV DECREASED GLUCOSE; Start 10/09/18 at 15:00 Glucagon (Glucagen) 1 mg Q15M PRN IM DECREASED GLUCOSE; Start 10/09/18 at 15:00 Glucose (Glutose) 15 gm Q15M PRN BUCCAL DECREASED GLUCOSE; Start 10/09/18 at 15:00 Albuterol (Ventolin Hfa) 4 puff Q6H RESP THERAPY INH Last administered on 11/14/18at 01:47; Admin Dose 4 PUFF; Start 10/10/18 at 02:00 Ipratropium [place] (Atrovent Hfa) 4 puff Q6H RESP THERAPY INH Last administered on 11/14/18at 01:47; Admin Dose 4 PUFF; Start 10/10/18 at 02:00 Lorazepam (Ativan) 1 mg Q4H PRN GTB AGITATION/ANXIETY Last administered on 11/05/18at 20:35; Admin Dose 1 MG; Start 10/14/18 at 13:00 Linagliptin (Tradjenta) 5 mg DAILY PO Last administered on 11/14/18 08:19; Admin Dose 5 MG; Start 10/16/18 at 10:30 Quetiapine Fumarate (Seroquel) 100 mg BID GTB Last administered on 11/14/18at 08:18; Admin Dose 100 MG; Start 10/21/18 at 21:00 Calcium Carbonate (Ca Carbonate) 1,250 mg QID GTB Last administered on 11/14/18 08:17; Admin Dose 1,250 MG; Start 10/24/18 at 13:00 Metoprolol Tartrate (Lopressor) 5 mg Q4H PRN IV HR>110 Hold SBP<100 Last administered on 11/11/18 18:31; Admin Dose 5 MG; Start 10/28/18 at 12:30 Phenylephrine HCl 40 mg/Dextrose 250 ml @ 37.5 mls/hr TITRATE IV Last administered on 11/02/18 09:05; Admin Dose 11.25 MLS/HR; Start 11/01/18 at 13:30 IV Flush (NS 10 ml) 10 ml PRN PRN IV IV PROTOCOL; Start 11/01/18 at 16:30 Collagenase (Santyl) 1 applic DAILY TOP Last administered on 11/14/18 08:27; Admin Dose 1 APPLIC; Start 11/01/18 at 19:30 Norepinephrine 32 mg/Dextrose 250 ml @ 0.47 mls/hr TITRATE IV Last administered on 11/02/18 12:15; Admin Dose 0.47 MLS/HR; Start 11/02/18 at 11:30 Midodrine (Proamatine) 5 mg TID@09,13,17 GTB Last administered on 11/08/18 12:53; Admin Dose 5 MG; Start 11/03/18 at 09:00; Status Hold Guaifenesin (Robitussin Liquid Cup) 100 mg Q4H PRN PO COUGH Last administered on 11/13/18 17:58; Admin Dose 100 MG; Start 11/03/18 at 12:00 Hydrocortisone (Cortef) 20 mg QAM PEG Last administered on 11/14/18 08:18; Admin Dose 20 MG; Start 11/04/18 at 09:00 Hydrocortisone (Cortef) 20 mg AC DINNER PEG Last administered on 11/13/18 17:58; Admin Dose 20 MG; Start 11/04/18 at 17:05 Hydrocortisone (Cortef) 20 mg HS PEG Last administered on 11/13/18 20:22; Admi n Dose 20 MG; Start 11/03/18 at 22:45 Calcitriol (Rocaltrol) 1.5 mcg BID PO Last administered on 11/14/18 08:18; Admin Dose 1.5 MCG; Start 11/07/18 at 21:00 Lorazepam (Ativan) 1 mg Q4 GTB Last administered on 11/14/18 08:17; Admin Dose 1 MG; Start 11/09/18 at 14:00 Carvedilol (Coreg) 6.25 mg BID PO Last administered on 11/14/18 08:18; Admin Dose 6.25 MG; Start 11/09/18 at 21:00 Benazepril HCl (Lotensin) 10 mg DAILY PO Last administered on 11/14/18 08:18; Admin Dose 10 MG; Start 11/10/18 at 09:00 Digoxin (Digoxin) 0.25 mg DAILY@13 PO Last administered on 11/13/18 14:00; Admin Dose 0.25 MG; Start 11/11/18 at 13:00 Furosemide (Lasix) 20 mg DAILY IV Last administered on 11/14/18 08:19; Admin Dose 20 MG; Start 11/10/18 at 12:30 Hydromorphone HCl (Dilaudid) 3 mg Q4H PRN PO MODERATE PAIN LEVEL 7-10 Last administered on 11/13/18 17:59; Admin Dose 3 MG; Start 11/10/18 at 22:00 Cefepime HCl 50 ml @ 100 mls/hr Q12 IVPB Last administered on 11/14/18 08:19; Admin Dose 100 MLS/HR; Start 11/10/18 at 23:30 Fentanyl 100 ml @ 2.5 mls/hr TITRATE IV Last administered on 11/14/18at 10:24; Admin Dose 2.5 MLS/HR; Start 11/14/18 at 09:00 Ascorbic Acid (Vitamin C) 250 mg DAILY GTB ; Start 11/15/18 at 09:00; Stop 11/29/18 at 09:00 Zinc Sulfate (Zinc Sulfate) 220 mg DAILY GTB ; Start 11/15/18 at 09:00; Stop 11/29/18 at 09:00 CAROLYN LANGLEY Nov 14, 2018 12:45
[2018-11-14] MEDS: DIGOXIN 0.25 MG TAB PO SCH (13:58)
[2018-11-14] MEDS: ACETAMINOPHEN 650MG/20.3ML CUP GTB PRN (16:44)
--- NOTE | 2018-11-14 16:59 | CONS ---
Assessment/Plan Assessment/Plan Hospital Course (Demo Recall) # sepsis, respiratory - recurrent sepsis on 10/08/2018 due to aspiration pneumonia, HCAP - s/p possible aspiration pneumonia, recurrent pneumonia due to citrobacter - acute on chronic hypoxic and hypercarbic respiratory failure - persistent leukocytosis likely due to steroid margination - h/o tracheostomy on 08/26/2018 - h/o "Increased mild left apical pneumothorax" per CXR on 09/19/2018; no pne umothorax mentioned on subsequent CXR - h/o pneumomediastinum - h/o VAT on 08/11/2018 - h/o asthma/COPD exacerbation - h/o acute tracheobronchitis - h/o MAC infection but CT chest did not demonstrate features suggestive of this per chart review - h/o HCAP due to citrobacter, based on resp culture on 09/13/2018 - h/o aspergillus in resp culture according to a note by Dr. Lopez, a pulmonlogist at [facility] on 07/25/2018 - h/o elevated 1,3 Ypso-H-[id number] level = 232 on 08/06/2018 - h/o MSSA septicemia # GI - diarrhea, C diff on 10/09/2018 was negative. 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 x 21 days from 08/26/2018 - h/o EGD, esophageal biopsy showed esophageal squamous mucosa showing acute inflammation, granulation tissue, and ulceration consistent with ulcerative eso phagitis, rare multinucleated cells with morphology suggestive of vial cytopathic changes, No cardiac mucosa, intestinal metaplasia, dysplasia, or malignancy defined - GERD - PUD # renal/ - Hypokalemia, recurrent - CKD 2 - BPH # cardiac - tachycardia, persistent - ACD - HTN # endo - T2DM - Hgb A1c 7.2% - secondary adrenal insufficiency; steroid dependent - HLD - Hypoparathyroidism - Hypercalcemia - Pamidronate was ordered # neuro - toxic metabolic encephalopathy - Cervical myopathy - Severe cervical spinal cord stenosis with cord compression from C3-C5, s/p laminectomy in ~03/2018 - Chronic pain syndrome - Functional quadriplegia - Seizure d/o # other chronic conditions - RA with chronic steroid dependence - Immunocompromised status - Fibromyalgia - DDD - H/o multiple rib fracture - Pt completed: meropenem (09/25/2018-10/02/2018), vancomycin (09/25/18-09/28/18), pip/tazo (10/09/2018-10/15/2018) - so far: pneumocystis antigen negative, AFB smear negative and final culture x3 pending, quantiferon TB gold negative, coccidioides serology negative Recommendations: - F/u Cdiff result, 11/11/18 shows is in process - I asked RN Maikel to send this today if it is not indeed received by lab from 11/11/18. - Continue cefepime (restarted 11/10/2018-) - Continue Bactrim for pneumocystis PPX Management d/w [facility] [employer] Maikel and with Dr. Davila Thank you Total critical care time spent: 45 min. Consultation Date/Type/Reason Admit Date/Time Oct 09, 2018 at 12:16 Initial Consult Date 10/12/18 Type of Consult ID Requesting Provider: NOLA VIDAL MD Date/Time of Note DATE: 11/14/18 TIME: 16:56 24 HR Interval Summary Free Text/Dictation Per d/w RN Maikel, a fentanyl drip was started today, patient has appeared calmer since the initiation. He had distress earlier, was desaturating in 70s, now back to 100% fio2. RN stated she will call lab for the update of the Cdiff from 11/11 which still shows in process. I asked her to please send the cdiff if it was not sent on the . Patient unable to contribute to ROS d/t lethargy. Exam/Review of Systems Exam Vitals Vital Signs Date Temp Pulse Resp B/P (MAP) Pulse Ox O2 O2 Flow FiO2 Time Delivery Rate 11/14/18 100.0 16:44 11/14/18 117 33 101/67 98 [place] 16:00 (78) l Ventilato r 11/14/18 100 15:30 Intake and Output 11/13/18 11/13/18 11/14/18 1515:00 23:00 07:00 IntakeIntake Total 590 ml 340 ml 330 ml OutputOutput Total 575 ml 575 ml 375 ml BalanceBalance 15 ml -235 ml -45 ml Allergies Coded Allergies No Known Allergy (Unverified11/03/18) Exam Constitutional: non-verbal, frail, other (lethargic, opened his eyes and looked at me then closed them again) Head: normocephalic, atraumatic Eyes: nl conjunctiva, nl lids, nl sclera ENMT: nl external ears & nose, nl nasal mucosa & septum, mucosa pink and moist (OP exam limited) Neck: supple, non-tender, other (trach site is midline, site c/d/i, on vent, fio2 100%) Respiratory: normal air movement, diminished breath sounds Cardiovascular: regular rate and rhythm, nl pulses, other (RUE PICC site is c/d/i) Gastrointestinal: soft, non-tender, other (GT site is c/d/i, rectal tube in place with liquid stool draining) Male Genitourinary: other (condom catheter in place draining yellow urine) Musculoskeletal: nl extremities to inspection Extremities: normal pulses Neurological: lethargic, other (lethargic currently) Skin: nl turgor, other (stage II coccygeal ulcer); No rash or lesions Results Result Diagram: 11/14/18 0443 11/14/18 0443 Results 24hrs Laboratory Tests Test 11/13/18 20:21 11/14/18 01:26 11/14/18 04:43 11/14/18 08:48 Bedside Glucose 126 149 119 White Blood Count 12.3 H Red Blood Count 3.10 L Hemoglobin 8.6 L Hematocrit 29.8 L Mean Corpuscular Volume 96.1 Mean Corpuscular 27.7 L Hemoglobin Mean Corpuscular 28.9 L Hemoglobin Concent Red Cell Distribution 15.9 H Width Platelet Count 418 H Mean Platelet Volume 10.8 H Immature Granulocytes % 1.900 H Neutrophils % 63.3 Lymphocytes % 6.4 L Monocytes % 11.3 H Eosinophils % 16.1 H Basophils % 1.0 Nucleated Red Blood 0.0 Cells % Immature Granulocytes # 0.230 H Neutrophils # 7.8 H Lymphocytes # 0.8 Monocytes # 1.4 H Eosinophils # 2.0 H Basophils # 0.1 Nucleated Red Blood 0.0 Cells # Sodium Level 140 Potassium Level 3.9 Chloride Level 90 L Carbon Dioxide Level 45 *H Anion Gap 5 Blood Urea Nitrogen 29 H Creatinine 0.38 L Est Glomerular Filtrat > 60 Rate mL/min Glucose Level 117 Calcium Level 8.5 Test 11/14/18 14:09 Bedside Glucose 108 Imaging Imaging CXR 11/14/18 IMPRESSION: Cardiomegaly with calcified atherosclerosis in the aorta. Stable extensive infiltrates throughout both lungs with small potential pleural effusions. Medications Medication Current Medications Acetaminophen (Tylenol Liquid) 650 mg Q4H PRN GTB MILD PAIN(1-3)OR ELEVATED TEMP Last administered on 11/14/18 16:44; Admin Dose 650 MG; Start 10/09/18 at 14:00 Al Hydrox/Mg Hydrox/Simethicone (Mag-Al Plus) 15 ml Q6H PRN PO GASTROINTESTINAL UPSET Last administered on 10/17/18 13:18; Admin Dose 15 ML; Start 10/09/18 at 14:00 Eye Lubricant (Artificial Tears Oph) 1 drop Q6H PRN BOTH EYES DRY EYES Last administered on 11/03/18 09:33; Admin Dose 1 DROP; Start 10/09/18 at 14:00 Bisacodyl (Dulcolax Supp) 10 mg DAILY PRN [place] CONSTIPATION; Start 10/09/18 at 14:00 Clonidine (Catapres) 0.1 mg DAILY PRN GTB ELEVATED BLOOD PRESSURE; Start 10/09/18 at 14:00 Diltiazem HCl (Cardizem Iv) 5 mg Q4 PRN IV ELEVATED HEART RATE Last administered on 11/06/18 18:47; Admin Dose 5 MG; Start 10/09/18 at 14:00 Diphenhydramine HCl (Benadryl Liquid Cup) 25 mg Q6 PRN GTB ITCHING Last administered on 10/22/18 20:25; Admin Dose 25 MG; Start 10/09/18 at 14:00 Duloxetine HCl (Cymbalta) 30 mg DAILY PO Last administered on 11/14/18 08:18; Admin Dose 30 MG; Start 10/10/18 at 09:00 Gabapentin (Neurontin Liquid) 400 mg Q8 GTB Last administered on 11/14/18 14:04; Admin Dose 400 MG; Start 10/09/18 at 15:30 Hydralazine HCl (Apresoline) 10 mg Q4H PRN IV ELEVATED BLOOD PRESSURE; Start at 14:00 Hydroxychloroquine Sulfate (Plaquenil) 200 mg BID PO Last administered on 11/14/18 08:18; Admin Dose 200 MG; Start 10/09/18 at 21:00 Diagnostic Test (Pha) (Accu-Chek) 1 ea 02 XX Last administered on 11/14/18at 01:35; Admin Dose 1 EA; Start 10/10/18 at 02:00 Insulin Aspart (Novolog Insulin Pen) NOVOLOG *CUSTOM* ALGORITHM Q6H SC Last administered on 11/13/18 01:05; Admin Dose 1 UNIT; Start 10/09/18 at 14:00 Lactobacillus Acidophilus (Florajen3 Capsule) 1 each BID GTB Last administered on 11/14/18 08:18; Admin Dose 1 EACH; Start 10/09/18 at 21:00 Lansoprazole (Prevacid) 30 mg BID@,18 GTB Last administered on 11/14/18 16:44; Admin Dose 30 MG; Start 10/09/18 at 18:00 Levetiracetam (Keppra Liquid) 500 mg BID GTB Last administered on 11/14/18 08:17; Admin Dose 500 MG; Start 10/09/18 at 21:00 Magnesium Oxide (Mag-Ox 400) 400 mg BID GTB Last administered on 11/14/18 08:19; Admin Dose 400 MG; Start 10/09/18 at 21:00 Metoclopramide HCl (Reglan) 10 mg TID IV Last administered on 11/14/18 14:04; Admin Dose 10 MG; Start 10/09/18 at 21:00 Miconazole Nitrate (Miconazole 2% Cr) 1 applic BID TOP Last administered on 11/14/18 08:27; Admin Dose 1 APPLIC; Start 10/09/18 at 21:00 Miconazole Nitrate (Miconazole 2% Cr) 1 applic Q12 PRN TOP rash; Start 10/09/18 at 14:00 Ondansetron HCl (Zofran Inj) 4 mg Q4H PRN IV NAUSEA AND/OR VOMITING Last administered on 10/19/18 16:37; Admin Dose 4 MG; Start 10/09/18 at 14:00 Polyethylene Glycol (Miralax) 17 gm DAILY PRN GTB CONSTIPATION; Start 10/09/18 at 14:00 Senna (Senokot) 2 tab Q8 PRN PO CONSTIPATION; Start 10/09/18 at 14:00 Trimethoprim/ Sulfamethoxazole (Bactrim Susp) 40 ml DAILY GTB Last administered on 11/14/18at 10:20; Admin Dose 40 ML; Start 10/10/18 at 09:00 Zolpidem Tartrate (Ambien) 5 mg HS PRN PO INSOMNIA Last administered on 11/03/18at 01:16; Admin Dose 5 MG; Start 10/09/18 at 14:00 Miscellaneous Information 1 ea NOTE XX ; Start 10/09/18 at 15:00 Glucose (Glutose) 15 gm Q15M PRN PO DECREASED GLUCOSE; Start 10/09/18 at 15:00 Glucose (Glutose) 22.5 gm Q15M PRN PO DECREASED GLUCOSE; Start 10/09/18 at 15:00 Dextrose (D50w Syringe) 25 ml Q15M PRN IV DECREASED GLUCOSE; Start 10/09/18 at 15:00 Dextrose (D50w Syringe) 50 ml Q15M PRN IV DECREASED GLUCOSE; Start 10/09/18 at 15:00 Glucagon (Glucagen) 1 mg Q15M PRN IM DECREASED GLUCOSE; Start 10/09/18 at 15:00 Glucose (Glutose) 15 gm Q15M PRN BUCCAL DECREASED GLUCOSE; Start 10/09/18 at 15:00 Albuterol (Ventolin Hfa) 4 puff Q6H RESP THERAPY INH Last administered on 11/14/18at 15:40; Admin Dose 4 PUFF; Start 10/10/18 at 02:00 Ipratropium [place] (Atrovent Hfa) 4 puff Q6H RESP THERAPY INH Last administered on 11/14/18at 15:40; Admin Dose 4 PUFF; Start 10/10/18 at 02:00 Lorazepam (Ativan) 1 mg Q4H PRN GTB AGITATION/ANXIETY Last administered on 11/05/18at 20:35; Admin Dose 1 MG; Start 10/14/18 at 13:00 Linagliptin (Tradjenta) 5 mg DAILY PO Last administered on 11/14/18 08:19; Admin Dose 5 MG; Start 10/16/18 at 10:30 Quetiapine Fumarate (Seroquel) 100 mg BID GTB Last administered on 11/14/18 08:18; Admin Dose 100 MG; Start 10/21/18 at 21:00 Calcium Carbonate (Ca Carbonate) 1,250 mg QID GTB Last administered on 4/1/19at 16:44; Admin Dose 1,250 MG; Start 10/24/18 at 13:00 Metoprolol Tartrate (Lopressor) 5 mg Q4H PRN IV HR>110 Hold SBP<100 Last a dministered on 11/11/18 18:31; Admin Dose 5 MG; Start 10/28/18 at 12:30 Phenylephrine HCl 40 mg/Dextrose 250 ml @ 37.5 mls/hr TITRATE IV Last administered on 11/02/18 09:05; Admin Dose 11.25 MLS/HR; Start 11/01/18 at 13:30 IV Flush (NS 10 ml) 10 ml PRN PRN IV IV PROTOCOL; Start 11/01/18 at 16:30 Collagenase (Santyl) 1 applic DAILY TOP Last administered on 11/14/18 08:27; Admin Dose 1 APPLIC; Start 11/01/18 at 19:30 Norepinephrine 32 mg/Dextrose 250 ml @ 0.47 mls/hr TITRATE IV Last admini stered on 11/02/18 12:15; Admin Dose 0.47 MLS/HR; Start 11/02/18 at 11:30 Midodrine (Proamatine) 5 mg TID@09,13,17 GTB Last administered on 11/08/18 12:53; Admin Dose 5 MG; Start 11/03/18 at 09:00; Status Hold Guaifenesin (Robitussin Liquid Cup) 100 mg Q4H PRN PO COUGH Last administered on 11/13/18 17:58; Admin Dose 100 MG; Start 11/03/18 at 12:00 Hydrocortisone (Cortef) 20 mg QAM PEG Last administered on 11/14/18 08:18; Admin Dose 20 MG; Start 11/04/18 at 09:00 Hydrocortisone (Cortef) 20 mg AC DINNER PEG Last administered on 11/14/18 16:44; Admin Dose 20 MG; Start 11/04/18 at 17:05 Hydrocortisone (Cortef) 20 mg HS PEG Last administered on 11/13/18 20:22; Admin Dose 20 MG; Start 11/03/18 at 22:45 Calcitriol (Rocaltrol) 1.5 mcg BID PO Last administered on 11/14/18 08:18; Admin Dose 1.5 MCG; Start 11/07/18 at 21:00 Lorazepam (Ativan) 1 mg Q4 GTB Last administered on 11/14/18 16:44; Admin Dose 1 MG; Start 11/09/18 at 14:00 Carvedilol (Coreg) 6.25 mg BID PO Last administered on 11/14/18 08:18; Admin Dose 6.25 MG; Start 11/09/18 at 21:00 Benazepril HCl (Lotensin) 10 mg DAILY PO Last administered on 11/14/18 08:18; Admin Dose 10 MG; Start 11/10/18 at 09:00 Digoxin (Digoxin) 0.25 mg DAILY@13 PO Last administered on 11/14/18 13:58; Admin Dose 0.25 MG; Start 11/11/18 at 13:00 Furosemide (Lasix) 20 mg DAILY IV Last administered on 11/14/18 08:19; Admin Dose 20 MG; Start 11/10/18 at 12:30 Hydromorphone HCl (Dilaudid) 3 mg Q4H PRN PO MODERATE PAIN LEVEL 7-10 Last administered on 11/13/18 17:59; Admin Dose 3 MG; Start 11/10/18 at 22:00 Cefepime HCl 50 ml @ 100 mls/hr Q12 IVPB Last administered on 11/14/18 08:19; Admin Dose 100 MLS/HR; Start 11/10/18 at 23:30 Fentanyl 100 ml @ 2.5 mls/hr TITRATE IV Last administered on 11/14/18at 10:24; Admin Dose 2.5 MLS/HR; Start 11/14/18 at 09:00 Ascorbic Acid (Vitamin C) 250 mg DAILY GTB ; Start 11/15/18 at 09:00; Stop at 09:00 Zinc Sulfate (Zinc Sulfate) 220 mg DAILY GTB ; Start 11/15/18 at 09:00; Stop 11/29/18 at 09:00 STEVE MOSCOSO NP Nov 14, 2018 16:59
[2018-11-15] VITALS (34 sets, daily range): BP systolic 92–140; BP diastolic 57–91; PULSE 97–121; RESP 23–46
[2018-11-15] MEDS: LORAZEPAM 1 MG TAB GTB SCH ×6 (01:15→20:48)
[2018-11-15] MEDS: INSULIN ASPART [NOVOLOG] 3 ML PEN SC SCH ×4 (01:21→21:03)
[2018-11-15] MEDS: ACCU-CHEK XX SCH (01:23)
[2018-11-15] MEDS: IPRATROPIUM (HFA) 12.9 GM INHALER INH SCH ×4 (01:24→19:30)
[2018-11-15] MEDS: ALBUTEROL HFA 8 GM INHALER INH SCH ×4 (01:25→19:30)
[2018-11-15] MEDS: GABAPENTIN (50 MG/ML PO SYG) GTB SCH ×2 (05:00→13:47)
[2018-11-15] MEDS: LANSOPRAZOLE 30 MG CAP GTB SCH ×2 (05:01→16:57)
--- NOTE | 2018-11-15 08:11 | CONS ---
Assessment/Plan Assessment/Plan Assessment/Plan (Daily) Ventilator setting; AC of 20, pressure control, PEEP of 8, 85% FiO2. Patient is currently on fentanyl 25 mics per hour. Assessment and recommendations; 1. Patient with history of VDR F and severe ARDS admitted for worsening hypoxemia with significant clinical decline. 2. History of HSV esophagitis. 3. History of incomplete quadriplegia. 4. Anemia. 5. History of hypertension. 6. History of cardiac arrhythmia. 7. Peripheral neuropathy. 8. Anxiety and depression. 9. History of Aspergillus pneumonia. Continue current supportive care. Consider stopping antibiotic. Prognosis remains very poor. Consultation Date/Type/Reason Admit Date/Time Oct 09, 2018 at 12:16 Initial Consult Date 10/12/18 Type of Consult Pulmonary/critical care Patient's condition is stable. Remains completely awake and alert. Has remai winnie hemodynamically stable. Patient also has been switched over to volume control ventilation from pressure-controlled mode. General exam; middle-aged male, on ventilator via tracheostomy, awake and alert. Watching television. Currently in no distress. Area Requesting Provider: NOLA VIDAL MD Date/Time of Note DATE: 11/15/18 TIME: 08:06 24 HR Interval Summary Free Text/Dictation Patient's condition remains tenuous at best. Patient having significant issues with persistent hypoxemia. Judy; middle-aged male, awake, on ventilator via tracheostomy, currently in no distress. Exam/Review of Systems Exam Vitals Vital Signs Date Temp Pulse Resp B/P (MAP) Pulse Ox O2 O2 Flow FiO2 Time Delivery Rate 11/15/18 115 29 140/83 95 Mechanical 06:00 (102) Ventilator 11/15/18 85 05:06 11/15/18 98.4 04:00 Intake and Output 11/14/18 11/14/18 11/15/18 1515:00 23:00 07:00 IntakeIntake Total 431.25 ml 465.0 ml 382.5 ml OutputOutput Total 750 ml 250 ml 400 ml BalanceBalance -318.75 ml 215.0 ml -17.5 ml Exam H EENT exam; supple neck, no JVD. No lymphadenopathy. Midline trachea. No t hyromegaly. Tracheostomy in place. Patient is edentulous. Chest exam; diminished breath sounds bilaterally with bilateral crackles. S1-S2 audible, no murmurs. Regular rhythm. Abdomen exam; soft, nondistended. No organomegaly. G-tube in place. Bowel sounds audible. Extremity exam; trace edema. 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 Results Result Diagram: 11/15/18 0500 11/15/18 0500 Results 24hrs Laboratory Tests Test 11/14/18 08:48 11/14/18 14:09 11/14/18 20:20 11/15/18 01:15 Bedside Glucose 119 108 135 168 Test 11/15/18 05:00 11/15/18 07:27 White Blood Count 15.8 #H Red Blood Count 3.00 L Hemoglobin 8.5 L Hematocrit 28.6 L Mean Corpuscular Volume 95.3 Mean Corpuscular 28.3 L Hemoglobin Mean Corpuscular 29.7 L Hemoglobin Concent Red Cell Distribution 16.0 H Width Platelet Count 460 H Mean Platelet Volume 10.8 H Immature Granulocytes % 1.600 H Neutrophils % 68.7 Lymphocytes % 8.2 L Monocytes % 10.0 Eosinophils % 10.7 H Basophils % 0.8 Nucleated Red Blood 0.0 Cells % Immature Granulocytes # 0.260 H Neutrophils # 10.9 H Lymphocytes # 1.3 Monocytes # 1.6 H Eosinophils # 1.7 H Basophils # 0.1 Nucleated Red Blood 0.0 Cells # Sodium Level 141 Potassium Level 3.5 Chloride Level 89 L Carbon Dioxide Level 49 *H Anion Gap 3 L Blood Urea Nitrogen 32 H Creatinine 0.39 L Est Glomerular Filtrat > 60 Rate mL/min Glucose Level 117 Calcium Level 8.4 Total Bilirubin 0.2 Direct Bilirubin 0.00 Indirect Bilirubin 0.2 Aspartate Amino 37 Transf (AST/SGOT) Alanine 28 Aminotransferase (ALT/SG PT) Alkaline Phosphatase 124 H Total Protein 5.3 L Albumin 2.8 L Globulin 2.50 Albumin/Globulin Ratio 1.12 Bedside Glucose 121 Medications Medication Current Medications Acetaminophen (Tylenol Liquid) 650 mg Q4H PRN GTB MILD PAIN(1-3)OR ELEVATED TEMP Last administered on 11/14/18at 16:44; Admin Dose 650 MG; Start 10/09/18 at 14:00 Al Hydrox/Mg Hydrox/Simethicone (Mag-Al Plus) 15 ml Q6H PRN PO GASTROINTESTINAL UPSET Last administered on 10/17/18 13:18; Admin Dose 15 ML; Start 10/09/18 at 14:00 Eye Lubricant (Artificial Tears Oph) 1 drop Q6H PRN BOTH EYES DRY EYES Last administered on 11/03/18 09:33; Admin Dose 1 DROP; Start 10/09/18 at 14:00 Bisacodyl (Dulcolax Supp) 10 mg DAILY PRN [place] CONSTIPATION; Start 10/09/18 at 14:00 Clonidine (Catapres) 0.1 mg DAILY PRN GTB ELEVATED BLOOD PRESSURE; Start 10/09/18 at 14:00 Diltiazem HCl (Cardizem Iv) 5 mg Q4 PRN IV ELEVATED HEART RATE Last administered on 11/06/18 18:47; Admin Dose 5 MG; Start 10/09/18 at 14:00 Diphenhydramine HCl (Benadryl Liquid Cup) 25 mg Q6 PRN GTB ITCHING Last administered on 10/22/18 20:25; Admin Dose 25 MG; Start 10/09/18 at 14:00 Duloxetine HCl (Cymbalta) 30 mg DAILY PO Last administered on 11/14/18 08:18; Admin Dose 30 MG; Start 10/10/18 at 09:00 Gabapentin (Neurontin Liquid) 400 mg Q8 GTB Last administered on 11/15/18 05:00; Admin Dose 400 MG; Start 10/09/18 at 15:30 Hydralazine HCl (Apresoline) 10 mg Q4H PRN IV ELEVATED BLOOD PRESSURE; Start 10/09/18 at 14:00 Hydroxychloroquine Sulfate (Plaquenil) 200 mg BID PO Last administered on 11/14/18 20:22; Admin Dose 200 MG; Start 10/09/18 at 21:00 Diagnostic Test (Pha) (Accu-Chek) 1 ea 02 XX Last administered on 11/15/18 01:23; Admin Dose 1 EA; Start 10/10/18 at 02:00 Insulin Aspart (Novolog Insulin Pen) NOVOLOG *CUSTOM* ALGORITHM Q6H SC Last administered on 11/15/18 01:21; Admin Dose 1 UNIT; Start 10/09/18 at 14:00 Lactobacillus Acidophilus (Florajen3 Capsule) 1 each BID GTB Last administered on 4/1/19at 20:21; Admin Dose 1 EACH; Start 10/09/18 at 21:00 Lansoprazole (Prevacid) 30 mg BID@,18 GTB Last administered on 11/15/18 05:01; Admin Dose 30 MG; Start 10/09/18 at 18:00 Levetiracetam (Keppra Liquid) 500 mg BID GTB Last administered on 11/14/18 20:21; Admin Dose 500 MG; Start 10/09/18 at 21:00 Magnesium Oxide (Mag-Ox 400) 400 mg BID GTB Last administered on 11/14/18 20:23; Admin Dose 400 MG; Start 10/09/18 at 21:00 Metoclopramide HCl (Reglan) 10 mg TID IV Last administered on 11/14/18 20:21; Admin Dose 10 MG; Start 10/09/18 at 21:00 Miconazole Nitrate (Miconazole 2% Cr) 1 applic BID TOP Last administered on 11/14/18 20:23; Admin Dose 1 APPLIC; Start 10/09/18 at 21:00 Miconazole Nitrate (Miconazole 2% Cr) 1 applic Q12 PRN TOP rash; Start 10/09/18 at 14:00 Ondansetron HCl (Zofran Inj) 4 mg Q4H PRN IV NAUSEA AND/OR VOMITING Last administered on 10/19/18at 16:37; Admin Dose 4 MG; Start 10/09/18 at 14:00 Polyethylene Glycol (Miralax) 17 gm DAILY PRN GTB CONSTIPATION; Start 10/09/18 at 14:00 Senna (Senokot) 2 tab Q8 PRN PO CONSTIPATION; Start 10/09/18 at 14:00 Trimethoprim/ Sulfamethoxazole (Bactrim Susp) 40 ml DAILY GTB Last administered on 11/14/18at 10:20; Admin Dose 40 ML; Start 10/10/18 at 09:00 Zolpidem Tartrate (Ambien) 5 mg HS PRN PO INSOMNIA Last administered on 11/03/18 01:16; Admin Dose 5 MG; Start 10/09/18 at 14:00 Miscellaneous Information 1 ea NOTE XX ; Start 10/09/18 at 15:00 Glucose (Glutose) 15 gm Q15M PRN PO DECREASED GLUCOSE; Start 10/09/18 at 15:00 Glucose (Glutose) 22.5 gm Q15M PRN PO DECREASED GLUCOSE; Start 10/09/18 at 15:00 Dextrose (D50w Syringe) 25 ml Q15M PRN IV DECREASED GLUCOSE; Start 10/09/18 at 15:00 Dextrose (D50w Syringe) 50 ml Q15M PRN IV DECREASED GLUCOSE; Start 10/09/18 at 15:00 Glucagon (Glucagen) 1 mg Q15M PRN IM DECREASED GLUCOSE; Start 10/09/18 at 15:00 Glucose (Glutose) 15 gm Q15M PRN BUCCAL DECREASED GLUCOSE; Start 10/09/18 at 15:00 Albuterol (Ventolin Hfa) 4 puff Q6H RESP THERAPY INH Last administered on 11/15/18 01:25; Admin Dose 4 PUFF; Start 10/10/18 at 02:00 Ipratropium [place] (Atrovent Hfa) 4 puff Q6H RESP THERAPY INH Last administered on 11/15/18 01:24; Admin Dose 4 PUFF; Start 10/10/18 at 02:00 Lorazepam (Ativan) 1 mg Q4H PRN GTB AGITATION/ANXIETY Last administered on 11/05/18at 20:35; Admin Dose 1 MG; Start 10/14/18 at 13:00 Linagliptin (Tradjenta) 5 mg DAILY PO Last administered on 11/14/18 08:19; Admin Dose 5 MG; Start 10/16/18 at 10:30 Quetiapine Fumarate (Seroquel) 100 mg BID GTB Last administered on 11/14/18 20:22; Admin Dose 100 MG; Start 10/21/18 at 21:00 Calcium Carbonate (Ca Carbonate) 1,250 mg QID GTB Last administered on 11/14/18 20:21; Admin Dose 1,250 MG; Start 10/24/18 at 13:00 Metoprolol Tartrate (Lopressor) 5 mg Q4H PRN IV HR>110 Hold SBP<100 Last administered on 11/11/18at 18:31; Admin Dose 5 MG; Start 10/28/18 at 12:30 Phenylephrine HCl 40 mg/Dextrose 250 ml @ 37.5 mls/hr TITRATE IV Last administered on 11/02/18at 09:05; Admin Dose 11.25 MLS/HR; Start 11/01/18 at 13:30 IV Flush (NS 10 ml) 10 ml PRN PRN IV IV PROTOCOL; Start 11/01/18 at 16:30 Collagenase (Santyl) 1 applic DAILY TOP Last administered on 11/14/18 08:27; A dmin Dose 1 APPLIC; Start 11/01/18 at 19:30 Norepinephrine 32 mg/Dextrose 250 ml @ 0.47 mls/hr TITRATE IV Last administered on 11/02/18 12:15; Admin Dose 0.47 MLS/HR; Start 11/02/18 at 11:30 Midodrine (Proamatine) 5 mg TID@09,13,17 GTB Last administered on 11/08/18 12:53; Admin Dose 5 MG; Start 11/03/18 at 09:00; Status Hold Guaifenesin (Robitussin Liquid Cup) 100 mg Q4H PRN PO COUGH Last administered on 11/13/18 17:58; Admin Dose 100 MG; Start 11/03/18 at 12:00 Hydrocortisone (Cortef) 20 mg QAM PEG Last administered on 11/14/18 08:18; Admin Dose 20 MG; Start 11/04/18 at 09:00 Hydrocortisone (Cortef) 20 mg AC DINNER PEG Last administered on 11/14/18 16:44; Admin Dose 20 MG; Start 11/04/18 at 17:05 Hydrocortisone (Cortef) 20 mg HS PEG Last administered on 11/14/18 20:22; Admin Dose 20 MG; Start 11/03/18 at 22:45 Calcitriol (Rocaltrol) 1.5 mcg BID PO Last administered on 11/14/18 20:22; Admin Dose 1.5 MCG; Start 11/07/18 at 21:00 Lorazepam (Ativan) 1 mg Q4 GTB Last administered on 11/15/18 05:01; Admin Dose 1 MG; Start 11/09/18 at 14:00 Carvedilol (Coreg) 6.25 mg BID PO Last administered on 11/14/18 08:18; Admin Dose 6.25 MG; Start 11/09/18 at 21:00 Benazepril HCl (Lotensin) 10 mg DAILY PO Last administered on 11/14/18 08:18; Admin Dose 10 MG; Start 11/10/18 at 09:00 Digoxin (Digoxin) 0.25 mg DAILY@13 PO Last administered on 11/14/18at 13:58; Admin Dose 0.25 MG; Start 11/11/18 at 13:00 Furosemide (Lasix) 20 mg DAILY IV Last administered on 11/14/18at 08:19; Admin Dose 20 MG; Start 11/10/18 at 12:30 Hydromorphone HCl (Dilaudid) 3 mg Q4H PRN PO MODERATE PAIN LEVEL 7-10 Last administered on 11/13/18at 17:59; Admin Dose 3 MG; Start 11/10/18 at 22:00 Cefepime HCl 50 ml @ 100 mls/hr Q12 IVPB Last administered on 11/14/18at 20:22; Admin Dose 100 MLS/HR; Start 11/10/18 at 23:30 Fentanyl 100 ml @ 2.5 mls/hr TITRATE IV Last administered on 11/14/18at 10:24; Admin Dose 2.5 MLS/HR; Start 11/14/18 at 09:00 Ascorbic Acid (Vitamin C) 250 mg DAILY GTB ; Start 11/15/18 at 09:00; Stop 11/29/18 at 09:00 Zinc Sulfate (Zinc Sulfate) 220 mg DAILY GTB ; Start 11/15/18 at 09:00; Stop 11/29/18 at 09:00 PILAR BERGER Nov 15, 2018 08:10
--- NOTE | 2018-11-15 08:40 | CONS ---
Consult Date/Type/Reason Admit Date/Time Oct 09, 2018 at 12:16 Initial Consult Date 10/09/18 Type of Consultation: Pulm/CCM Requesting Provider: NOLA VIDAL MD Date/Time of Note DATE: 11/15/18 TIME: 08:38 Subjective NO acute events - pt comfortable - still tachy, baseline ROS: No fever, no chills, no nausea, no vomiting, no diarrhea/constipation No recent weight changes No chest pain, no PND, no orthopnea - anxious, short of breath No dizziness, blurred vision No thirst, no heat or cold intolerance Objective Vitals Vital Signs Date Temp Pulse Resp B/P (MAP) Pulse Ox O2 O2 Flow FiO2 Time Delivery Rate 11/15/18 85 08:00 11/15/18 98.7 118 30 136/91 90 Mechanical 08:00 (106) Ventilator Intake and Output 11/14/18 11/14/18 11/15/18 1515:00 23:00 07:00 IntakeIntake Total 431.25 ml 465.0 ml 385.0 ml OutputOutput Total 750 ml 250 ml 400 ml BalanceBalance -318.75 ml 215.0 ml -15.0 ml Exam General: WN/WD/NAD, AOx comfortable HEENT: Unicetric/atraumatic/EOMI DEANNA: trach Lymph: no lymphadenopathy HEART: regular with no S3, II/ systolic murmur at apex LUNGS: Coarse sounds ABD: soft, NT, ND, +BS : Intact Neuro: non focal SKIN: chronic changes EXT: trace edema, wounds Results/Medications Result Diagram: 11/15/18 0500 11/15/18 0500 Results 24 hrs Laboratory Tests Test 11/14/18 08:48 11/14/18 14:09 11/14/18 20:20 11/15/18 01:15 Bedside Glucose 119 108 135 168 Test 11/15/18 05:00 11/15/18 07:00 11/15/18 07:27 White Blood Count 15.8 #H Red Blood Count 3.00 L Hemoglobin 8.5 L Hematocrit 28.6 L Mean Corpuscular 95.3 Volume Mean Corpuscular 28.3 L Hemoglobin Mean Corpuscular 29.7 L Hemoglobin Concent Red Cell 16.0 H Distribution Width Platelet Count 460 H Mean Platelet 10.8 H Volume Immature 1.600 H Granulocytes % Neutrophils % 68.7 Lymphocytes % 8.2 L Monocytes % 10.0 Eosinophils % 10.7 H Basophils % 0.8 Nucleated Red 0.0 Blood Cells % Immature 0.260 H Granulocytes # Neutrophils # 10.9 H Lymphocytes # 1.3 Monocytes # 1.6 H Eosinophils # 1.7 H Basophils # 0.1 Nucleated Red 0.0 Blood Cells # Sodium Level 141 Potassium Level 3.5 Chloride Level 89 L Carbon Dioxide 49 *H Level Anion Gap 3 L Blood Urea 32 H Nitrogen Creatinine 0.39 L Est Glomerular > 60 Filtrat Rate mL/min Glucose Level 117 Calcium Level 8.4 Total Bilirubin 0.2 Direct Bilirubin 0.00 Indirect Bilirubin 0.2 Aspartate Amino 37 Transf (AST/SGOT) Alanine 28 Aminotransferase ( ALT/SGPT) Alkaline 124 H Phosphatase Total Protein 5.3 L Albumin 2.8 L Globulin 2.50 Albumin/Globulin 1.12 Ratio Blood Gas Specimen Blood arterial Source Arterial Blood 11/15/2018 7:21:27 Date Drawn AM Arterial Blood pH 7.443 (Temp corrected) Arterial Blood 78.3 H pCO2 (Temp correct) Arterial Blood pO2 77.7 L (Temp corrected) Arterial Blood 52.3 *H HCO3 Arterial Blood 24.9 H Base Excess Arterial Blood 95.0 Oxygen Saturation [place] Test N/A Arterial Blood Gas Left Radial Puncture Site Arterial 1.2 Blood Carboxyhemog lobin Arterial Blood 0.1 Methemoglobin Blood Gas A-a O2 447.1 H Differential Oxyhemoglobin 93.8 Percent Blood Gas 37.0 Temperature Blood Gas 20.0 Respiration Rate Blood Gas Actual 32 Respiration Rate Blood Gas Modality VENT - PC FiO2 85.0 Blood Gas Low PEEP 8.0 Setting Blood Gas Critical JKIM RN Value Read Back Blood Gas Notified TM Whom Blood Gas Notified 11/15/2018 8:13:40 Time AM Bedside Glucose 121 Medications Current Medications Acetaminophen (Tylenol Liquid) 650 mg Q4H PRN GTB MILD PAIN(1-3)OR ELEVATED TEMP Last administered on 11/14/18 16:44; Admin Dose 650 MG; Start 10/09/18 at 14:00 Al Hydrox/Mg Hydrox/Simethicone (Mag-Al Plus) 15 ml Q6H PRN PO GASTROINTESTINAL UPSET Last administered on 10/17/18 13:18; Admin Dose 15 ML; Start 10/09/18 at 14:00 Eye Lubricant (Artificial Tears Oph) 1 drop Q6H PRN BOTH EYES DRY EYES Last administered on 11/03/18 09:33; Admin Dose 1 DROP; Start 10/09/18 at 14:00 Bisacodyl (Dulcolax Supp) 10 mg DAILY PRN DE CONSTIPATION; Start 10/09/18 at 14:00 Clonidine (Catapres) 0.1 mg DAILY PRN GTB ELEVATED BLOOD PRESSURE; Start 10/09/18 at 14:00 Diltiazem HCl (Cardizem Iv) 5 mg Q4 PRN IV ELEVATED HEART RATE Last administered on 11/06/18 18:47; Admin Dose 5 MG; Start 10/09/18 at 14:00 Diphenhydramine HCl (Benadryl Liquid Cup) 25 mg Q6 PRN GTB ITCHING Last administered on 10/22/18 20:25; Admin Dose 25 MG; Start 10/09/18 at 14:00 Duloxetine HCl (Cymbalta) 30 mg DAILY PO Last administered on 11/14/18 08:18; Admin Dose 30 MG; Start 10/10/18 at 09:00 Gabapentin (Neurontin Liquid) 400 mg Q8 GTB Last administered on 11/15/18 05:00; Admin Dose 400 MG; Start 10/09/18 at 15:30 Hydralazine HCl (Apresoline) 10 mg Q4H PRN IV ELEVATED BLOOD PRESSURE; Start 10/09/18 at 14:00 Hydroxychloroquine Sulfate (Plaquenil) 200 mg BID PO Last administered on 11/14/18 20:22; Admin Dose 200 MG; Start 10/09/18 at 21:00 Diagnostic Test (Pha) (Accu-Chek) 1 ea 02 XX Last administered on 11/15/18 01:23; Admin Dose 1 EA; Start 10/10/18 at 02:00 Insulin Aspart (Novolog Insulin Pen) NOVOLOG *CUSTOM* ALGORITHM Q6H SC Last administered on 11/15/18 01:21; Admin Dose 1 UNIT; Start 10/09/18 at 14:00 Lactobacillus Acidophilus (Florajen3 Capsule) 1 each BID GTB Last administered on 11/14/18 20:21; Admin Dose 1 EACH; Start 10/09/18 at 21:00 Lansoprazole (Prevacid) 30 mg BID@06,18 GTB Last administered on 11/15/18 05:01; Admin Dose 30 MG; Start 10/09/18 at 18:00 Levetiracetam (Keppra Liquid) 500 mg BID GTB Last administered on 11/14/18 20:21; Admin Dose 500 MG; Start 10/09/18 at 21:00 Magnesium Oxide (Mag-Ox 400) 400 mg BID GTB Last administered on 11/14/18 20:23; Admin Dose 400 MG; Start 10/09/18 at 21:00 Metoclopramide HCl (Reglan) 10 mg TID IV Last administered on 11/14/18 20:21; Admin Dose 10 MG; Start 10/09/18 at 21:00 Miconazole Nitrate (Miconazole 2% Cr) 1 applic BID TOP Last administered on 11/14/18 20:23; Admin Dose 1 APPLIC; Start 10/09/18 at 21:00 Miconazole Nitrate (Miconazole 2% Cr) 1 applic Q12 PRN TOP rash; Start 10/09/18 at 14:00 Ondansetron HCl (Zofran Inj) 4 mg Q4H PRN IV NAUSEA AND/OR VOMITING Last administered on 10/19/18 16:37; Admin Dose 4 MG; Start 10/09/18 at 14:00 Polyethylene Glycol (Miralax) 17 gm DAILY PRN GTB CONSTIPATION; Start 10/09/18 at 14:00 Senna (Senokot) 2 tab Q8 PRN PO CONSTIPATION; Start 10/09/18 at 14:00 Trimethoprim/ Sulfamethoxazole (Bactrim Susp) 40 ml DAILY GTB Last administered on 11/14/18 10:20; Admin Dose 40 ML; Start 10/10/18 at 09:00 Zolpidem Tartrate (Ambien) 5 mg HS PRN PO INSOMNIA Last administered on 01:16; Admin Dose 5 MG; Start 10/09/18 at 14:00 Miscellaneous Information 1 ea NOTE XX ; Start 10/09/18 at 15:00 Glucose (Glutose) 15 gm Q15M PRN PO DECREASED GLUCOSE; Start 10/09/18 at 15:00 Glucose (Glutose) 22.5 gm Q15M PRN PO DECREASED GLUCOSE; Start 10/09/18 at 15:00 Dextrose (D50w Syringe) 25 ml Q15M PRN IV DECREASED GLUCOSE; Start 10/09/18 at 15:00 Dextrose (D50w Syringe) 50 ml Q15M PRN IV DECREASED GLUCOSE; Start 10/09/18 at 15:00 Glucagon (Glucagen) 1 mg Q15M PRN IM DECREASED GLUCOSE; Start 10/09/18 at 15:00 Glucose (Glutose) 15 gm Q15M PRN BUCCAL DECREASED GLUCOSE; Start 10/09/18 at 15:00 Albuterol (Ventolin Hfa) 4 puff Q6H RESP THERAPY INH Last administered on 11/15/18 08:11; Admin Dose 4 PUFF; Start 10/10/18 at 02:00 Ipratropium [place] (Atrovent Hfa) 4 puff Q6H RESP THERAPY INH Last administered on 11/15/18 08:11; Admin Dose 4 PUFF; Start 10/10/18 at 02:00 Lorazepam (Ativan) 1 mg Q4H PRN GTB AGITATION/ANXIETY Last administered on 11/05/18at 20:35; Admin Dose 1 MG; Start 10/14/18 at 13:00 Linagliptin (Tradjenta) 5 mg DAILY PO Last administered on 11/14/18 08:19; Admin Dose 5 MG; Start 10/16/18 at 10:30 Quetiapine Fumarate (Seroquel) 100 mg BID GTB Last administered on 11/14/18 20:22; Admin Dose 100 MG; Start 10/21/18 at 21:00 Calcium Carbonate (Ca Carbonate) 1,250 mg QID GTB Last administered on 11/14/18 20:21; Admin Dose 1,250 MG; Start 10/24/18 at 13:00 Metoprolol Tartrate (Lopressor) 5 mg Q4H PRN IV HR>110 Hold SBP<100 Last administered on 11/11/18at 18:31; Admin Dose 5 MG; Start 10/28/18 at 12:30 Phenylephrine HCl 40 mg/Dextrose 250 ml @ 37.5 mls/hr TITRATE IV Last administered on 11/02/18at 09:05; Admin Dose 11.25 MLS/HR; Start 11/01/18 at 13:30 IV Flush (NS 10 ml) 10 ml PRN PRN IV IV PROTOCOL; Start 11/01/18 at 16:30 Collagenase (Santyl) 1 applic DAILY TOP Last administered on 11/14/18 08:27; Admin Dose 1 APPLIC; Start 11/01/18 at 19:30 Norepinephrine 32 mg/Dextrose 250 ml @ 0.47 mls/hr TITRATE IV Last administered on 11/02/18 12:15; Admin Dose 0.47 MLS/HR; Start 11/02/18 at 11:30 Midodrine (Proamatine) 5 mg TID@09,13,17 GTB Last administered on 11/08/18 12:53; Admin Dose 5 MG; Start 11/03/18 at 09:00; Status Hold Guaifenesin (Robitussin Liquid Cup) 100 mg Q4H PRN PO COUGH Last administered on 11/13/18 17:58; Admin Dose 100 MG; Start 11/03/18 at 12:00 Hydrocortisone (Cortef) 20 mg QAM PEG Last administered on 11/14/18 08:18; Admin Dose 20 MG; Start 11/04/18 at 09:00 Hydrocortisone (Cortef) 20 mg AC DINNER PEG Last administered on 11/14/18 16:44; Admin Dose 20 MG; Start 11/04/18 at 17:05 Hydrocortisone (Cortef) 20 mg HS PEG Last administered on 11/14/18 20:22; Admin Dose 20 MG; Start 11/03/18 at 22:45 Calcitriol (Rocaltrol) 1.5 mcg BID PO Last administered on 11/14/18 20:22; Admin Dose 1.5 MCG; Start 11/07/18 at 21:00 Lorazepam (Ativan) 1 mg Q4 GTB Last administered on 11/15/18 05:01; Admin Dose 1 MG; Start 11/09/18 at 14:00 Carvedilol (Coreg) 6.25 mg BID PO Last administered on 11/14/18 08:18; Admin Dose 6.25 MG; Start 11/09/18 at 21:00 Benazepril HCl (Lotensin) 10 mg DAILY PO Last administered on 11/14/18 08:18; Admin Dose 10 MG; Start 11/10/18 at 09:00 Digoxin (Digoxin) 0.25 mg DAILY@13 PO Last administered on 11/14/18at 13:58; Admin Dose 0.25 MG; Start 11/11/18 at 13:00 Furosemide (Lasix) 20 mg DAILY IV Last administered on 11/14/18at 08:19; Admin Dose 20 MG; Start 11/10/18 at 12:30 Hydromorphone HCl (Dilaudid) 3 mg Q4H PRN PO MODERATE PAIN LEVEL 7-10 Last administered on 11/13/18at 17:59; Admin Dose 3 MG; Start 11/10/18 at 22:00 Cefepime HCl 50 ml @ 100 mls/hr Q12 IVPB Last administered on 11/14/18at 20:22; Admin Dose 100 MLS/HR; Start 11/10/18 at 23:30 Fentanyl 100 ml @ 2.5 mls/hr TITRATE IV Last administered on 11/14/18at 10:24; Admin Dose 2.5 MLS/HR; Start 11/14/18 at 09:00 Ascorbic Acid (Vitamin C) 250 mg DAILY GTB ; Start 11/15/18 at 09:00; Stop 11/29/18 at 09:00 Zinc Sulfate (Zinc Sulfate) 220 mg DAILY GTB ; Start 11/15/18 at 09:00; Stop 11/29/18 at 09:00 Assessment/Plan Hospital Course (Demo Recall) 1. Tachycardia at this time in the setting of fevers and respiratory distress, most consistent with sinus tachycardia likely driving this process - better now, con't supportive Rx and pain management- con't anxiety Rx. Con;t supportive RX. Rate controlled at rest. Keep euvolemic as tolerated. Labile rate - con;t supportive rX . Overall unchanged. Con't resp Rx. NOw with borderline BP - no feer, will monitor closely in ICU. 2. Hypertension with borderline hypotension at this time. -still borderline Hotn - no focal symptoms. Will monitor now. In good range. STABLE. 3. Abnormal electrocardiogram at baseline.Sinus tach. OK to hydrate. Euvolemic now. 4. Chronic respiratory failure, status post tracheostomy.-weaning vent support - con't resp Rx. Con;t resp Rx. Pulmonary follows. Pulmonary follows. 5. Dysphagia, status post G-tube. 6. Quadriplegia- skin care in place. NO change. Skin care. 7. Renal insufficiency, on steroids- Cr 0.47 now. Stable. Good urine output now. Good urine output. Resolved. 8. Chronic obstructive pulmonary disease - con't resp Rx per pulmonary team. On vent Can not wean. .On meds. 9. Rheumatoid arthritis. 10. Chronic kidney disease- better now. 11. Diabetes mellitus- on meds. 12. Anemia - of chronic Dz, ar 9.9 now H/H - no bleeding- trending down to 8.8 VANESSA COOPER MD Nov 15, 2018 08:40
--- NOTE | 2018-11-15 08:48 | PN ---
DATE: 11/15/2018 SUBJECTIVE: The patient remains on full ventilatory support. No other acute events noted. No hemop tysis, hematemesis, or hematochezia. OBJECTIVE: VITAL SIGNS: Blood pressure is 140/83, respirations 29, pulse 115, temperature 98.4. HEENT: Head is normocephalic. NECK: Supple. HEART: Regular rate. LUNGS: Show diminished breath sounds at the base. ABDOMEN: Soft, nontender to palpation. No rebound or guarding. EXTREMITIES: Negative for clubbing, cyanosis. Positive edema. DERMATOLOGIC: No rashes. MUSCULOSKELETAL: No joint effusion. NEUROLOGIC: No change in exam. MEDICATIONS: The patient's medications have been reviewed. LABORATORY DATA: From 11/15/2018 was reviewed. ASSESSMENT AND PLAN: 1. Nonoliguric acute kidney injury with previously normal baseline creatinine. Etiology is secondar y to hemodynamics and monitor renal function closely on diuretic therapy. 2. Volume overload. Continue diuretic therapy, consider intensifying diuretic regimen. 3. Mixed acid base disorder. The patient has a respiratory acidosis and metabolic alkalosis. We wi ll continue to monitor. May consider course of Diamox. We will discuss with pulmonary. 4. Ventilator-dependent respiratory failure. Vent settings and ABG was reviewed. Continue to monit or. 5. Adrenal insufficiency. The patient will continue Cortef. 6. Dysphagia, status post PEG. Continue tube feeding. 7. Hypertension. Continue current blood pressure regimen. 8. Seizure disorder. Continue medical management. 9. Hypomagnesemia. Continue to monitor and replete. 10. Mineral bone disorder, monitor calcium and phosphorus levels. Continue vitamin D analogs. 11. Status post shock. 12. Anxiety disorder. Dictated By: UNA ROY DO NR/NTS Conf#: [id number] DID#: [id number] CC: CAMELIA VALENTINE MD; NOLA VIDAL MD;*End*
[2018-11-15] MEDS: MAGNESIUM OXIDE 400 MG TAB GTB SCH ×2 (08:57→20:41)
[2018-11-15] MEDS: LEVETIRACETAM (100 MG/ML) 5ML CUP GTB SCH ×2 (08:57→20:42)
[2018-11-15] MEDS: LINAGLIPTIN 5 MG TABLET PO SCH (08:57)
[2018-11-15] MEDS: CA CARBONATE (250 MG/ML) 5ML CUP GTB SCH ×4 (08:57→20:42)
[2018-11-15] MEDS: HYDROXYCHLOROQUINE 200 MG TAB PO SCH ×2 (08:57→20:42)
[2018-11-15] MEDS: HYDROCORTISONE 20 MG TAB PEG SCH (08:58)
[2018-11-15] MEDS: BENAZEPRIL 10 MG TAB PO SCH (08:58)
[2018-11-15] MEDS: FUROSEMIDE 20 MG INJ IV SCH (08:58)
[2018-11-15] MEDS: L ACIDOPHIL/B LACTIS/B LONGUM CAPSULE GTB SCH ×2 (08:58→20:42)
[2018-11-15] MEDS: CALCITRIOL 0.5 MCG CAPSULE PO SCH ×2 (08:58→20:41)
[2018-11-15] MEDS: DULOXETINE 30 MG CAP DR PO SCH (08:58)
[2018-11-15] MEDS: COLLAGENASE 5 GM (UD JAR) TOP SCH (08:59)
[2018-11-15] MEDS: MICONAZOLE 2% 30 GM CR TOP SCH ×2 (08:59→20:44)
[2018-11-15] MEDS: CEFEPIME 1GM/50 ML (PMX) 50 ML IVPB SCH ×2 (08:59→20:42)
[2018-11-15] MEDS: BALSAM PERU/CASTOR OIL 60 GM TUBE TOP SCH ×2 (08:59→20:43)
[2018-11-15] MEDS: METOCLOPRAMIDE 10 MG INJ IV SCH ×3 (09:04→20:42)
[2018-11-15] MEDS: ASCORBIC ACID 250 MG TAB GTB SCH (09:10)
[2018-11-15] MEDS: QUETIAPINE 100 MG TAB GTB SCH ×2 (09:10→20:41)
[2018-11-15] MEDS: ZINC SULFATE 220 MG CAP GTB SCH (09:10)
[2018-11-15] MEDS: TRIMETHOPRIM/SULFAMETHOX (PO SYG) GTB SCH (09:10)
[2018-11-15] MEDS: DIGOXIN 0.25 MG TAB PO SCH (13:38)
--- NOTE | 2018-11-15 14:33 | CONS ---
Assessment/Plan Assessment/Plan Hospital Course (Demo Recall) # sepsis, respiratory - recurrent sepsis probably due to aspiration pneumonia, HCAP - s/p recurrent sepsis due to aspiration pneumonia, HCAP - possible aspiration pneumonia, recurrent pneumonia due to citrobacter - acute on chronic hypoxic and hypercarbic respiratory failure - intermittent leukocytosis likely due to steroid margination and sepsis - h/o tracheostomy on 08/26/2018 - h/o "Increased mild left apical pneumothorax" per CXR on 09/19/2018; no pneumothorax mentioned on subsequent CXR - h/o pneumomediastinum - h/o VAT on 08/11/2018 - h/o asthma/COPD exacerbation - h/o acute tracheobronchitis - h/o MAC infection but CT chest did not demonstrate features suggestive of this per chart review - h/o HCAP due to citrobacter, based on resp culture on 09/13/2018 - h/o aspergillus in resp culture according to a note by Dr. Lopez, a pulmonlogist at [facility] on 07/25/2018 - h/o elevated 1,3 Pysg-S-yohygh level = 232 on 08/06/2018 - h/o MSSA septicemia # GI - diarrhea, C diff on 10/09/2018 and 11/11/2018 was negative. 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 x 21 days from 08/26/2018 - h/o EGD, esophageal biopsy showed esophageal squamous mucosa showing acute inf lammation, granulation tissue, and ulceration consistent with ulcerative esophagitis, rare multinucleated cells with morphology suggestive of vial cytopathic changes, No cardiac mucosa, intestinal metaplasia, dysplasia, or malignancy defined - GERD - PUD # renal/ - Hypokalemia, recurrent - CKD 2 - BPH # cardiac - tachycardia, persistent - ACD - HTN # endo - T2DM - Hgb A1c 7.2% - secondary adrenal insufficiency; steroid dependent - HLD - Hypoparathyroidism - Hypercalcemia - Pamidronate was ordered # neuro - toxic metabolic encephalopathy - Cervical myopathy - Severe cervical spinal cord stenosis with cord compression from C3-C5, s/p laminectomy in ~03/2018 - Chronic pain syndrome - Functional quadriplegia - Seizure d/o # other chronic conditions - RA with chronic steroid dependence - Immunocompromised status - Fibromyalgia - DDD - H/o multiple rib fracture - Pt completed: meropenem (09/25/2018-10/02/2018), vancomycin (09/25/18-09/28/18), pip/tazo (10/09/2018-10/15/2018) - so far: pneumocystis antigen negative, AFB smear negative and final culture x3 pending, quantiferon TB gold negative, coccidioides serology negative Recommendations: - ordered: blood cultures x2, lactic acid, procalcitonin, 1,6-jnnj-X-glucan, urinalysis and urine culture, resp culture - continue cefepime (restarted 11/10/2018-) - continue Bactrim for pneumocystis PPX Management d/w [employer] Maikel the critical care time that I took to care for this Pt today was from 1330 to 1400 Consultation Date/Type/Reason Admit Date/Time Oct 09, 2018 at 12:16 Initial Consult Date 10/09/18 Type of Consult ID Requesting Provider: NOLA VIDAL MD Date/Time of Note DATE: 11/15/18 TIME: 14:29 24 HR Interval Summary Subjective hx not possible: pt non-verbal, pt critical, pt critical status Exam/Review of Systems Exam Vitals Vital Signs Date Temp Pulse Resp B/P (MAP) Pulse Ox O2 O2 Flow FiO2 Time Delivery Rate 11/15/18 105 28 96/57 (70) 97 Mechanical 13:00 Ventilator 11/15/18 99.8 12:00 11/15/18 85 11:29 Intake and Output 11/14/18 11/14/18 11/15/18 1515:00 23:00 07:00 IntakeIntake Total 431.25 ml 465.0 ml 430.0 ml OutputOutput Total 750 ml 250 ml 600 ml BalanceBalance -318.75 ml 215.0 ml -170.0 ml Constitutional: non-verbal, frail Head: normocephalic, atraumatic Eyes: nl conjunctiva, nl sclera, other (slightly swollen periorbital areas) ENMT: nl external ears & nose, nl nasal mucosa & septum Neck: other (trach) Respiratory: crackles/rales, diminished breath sounds Cardiovascular: regular rate and rhythm, nl pulses Gastrointestinal: soft, non-tender, other (GT RT) Genitourinary - Male: other (FC) Musculoskeletal: nl extremities to inspection Extremities: pitting pedal edema Neurological: lethargic Skin: rash or lesions (stage II coccyx) Results Result Diagram: 11/15/18 0500 11/15/18 0500 Results 24hrs Laboratory Tests Test 11/14/18 20:20 11/15/18 01:15 11/15/18 05:00 11/15/18 07:00 Bedside Glucose 135 168 White Blood Count 15.8 #H Red Blood Count 3.00 L Hemoglobin 8.5 L Hematocrit 28.6 L Mean Corpuscular 95.3 Volume Mean Corpuscular 28.3 L Hemoglobin Mean Corpuscular 29.7 L Hemoglobin Concent Red Cell 16.0 H Distribution Width Platelet Count 460 H Mean Platelet 10.8 H Volume Immature 1.600 H Granulocytes % Neutrophils % 68.7 Lymphocytes % 8.2 L Monocytes % 10.0 Eosinophils % 10.7 H Basophils % 0.8 Nucleated Red 0.0 Blood Cells % Immature 0.260 H Granulocytes # Neutrophils # 10.9 H Lymphocytes # 1.3 Monocytes # 1.6 H Eosinophils # 1.7 H Basophils # 0.1 Nucleated Red 0.0 Blood Cells # Sodium Level 141 Potassium Level 3.5 Chloride Level 89 L Carbon Dioxide 49 *H Level Anion Gap 3 L Blood Urea 32 H Nitrogen Creatinine 0.39 L Est Glomerular > 60 Filtrat Rate mL/min Glucose Level 117 Calcium Level 8.4 Total Bilirubin 0.2 Direct Bilirubin 0.00 Indirect Bilirubin 0.2 Aspartate Amino 37 Transf (AST/SGOT) Alanine 28 Aminotransferase ( ALT/SGPT) Alkaline 124 H Phosphatase Total Protein 5.3 L Albumin 2.8 L Globulin 2.50 Albumin/Globulin 1.12 Ratio Blood Gas Specimen Blood arterial Source Arterial Blood 11/15/2018 7:21:00 Date Drawn AM Arterial Blood pH 7.443 (Temp corrected) Arterial Blood 78.3 H pCO2 (Temp correct) Arterial Blood pO2 77.7 L (Temp corrected) Arterial Blood 52.3 *H HCO3 Arterial Blood 24.9 H Base Excess Arterial Blood 95.0 Oxygen Saturation [place] Test N/A Arterial Blood Gas Left Radial Puncture Site Arterial 1.2 Blood Carboxyhemog lobin Arterial Blood 0.1 Methemoglobin Blood Gas A-a O2 447.1 H Differential Oxyhemoglobin 93.8 Percent Blood Gas 37.0 Temperature Blood Gas 20.0 Respiration Rate Blood Gas Actual 32 Respiration Rate Blood Gas Modality VENT - PC FiO2 85.0 Blood Gas Low PEEP 8.0 Setting Blood Gas Critical JLIM RN Value Read Back Blood Gas Notified TM Whom Blood Gas Notified 11/15/2018 8:13:00 Time AM Test 11/15/18 07:27 11/15/18 13:41 Bedside Glucose 121 145 Medications Medication Current Medications Acetaminophen (Tylenol Liquid) 650 mg Q4H PRN GTB MILD PAIN(1-3)OR ELEVATED TEMP Last administered on 11/14/18 16:44; Admin Dose 650 MG; Start 10/09/18 at 14:00 Al Hydrox/Mg Hydrox/Simethicone (Mag-Al Plus) 15 ml Q6H PRN PO GASTROINTESTINAL UPSET Last administered on 10/17/18 13:18; Admin Dose 15 ML; Start 10/09/18 at 14:00 Eye Lubricant (Artificial Tears Oph) 1 drop Q6H PRN BOTH EYES DRY EYES Last administered on 11/03/18 09:33; Admin Dose 1 DROP; Start 10/09/18 at 14:00 Bisacodyl (Dulcolax Supp) 10 mg DAILY PRN MT CONSTIPATION; Start 10/09/18 at 14:00 Clonidine (Catapres) 0.1 mg DAILY PRN GTB ELEVATED BLOOD PRESSURE; Start 10/09/18 at 14:00 Diltiazem HCl (Cardizem Iv) 5 mg Q4 PRN IV ELEVATED HEART RATE Last administered on 11/06/18 18:47; Admin Dose 5 MG; Start 10/09/18 at 14:00 Diphenhydramine HCl (Benadryl Liquid Cup) 25 mg Q6 PRN GTB ITCHING Last administered on 10/22/18 20:25; Admin Dose 25 MG; Start 10/09/18 at 14:00 Duloxetine HCl (Cymbalta) 30 mg DAILY PO Last administered on 11/15/18 08:58; Admin Dose 30 MG; Start 10/10/18 at 09:00 Gabapentin (Neurontin Liquid) 400 mg Q8 GTB Last administered on 11/15/18 13:47; Admin Dose 400 MG; Start 10/09/18 at 15:30 Hydralazine HCl (Apresoline) 10 mg Q4H PRN IV ELEVATED BLOOD PRESSURE; Start 10/09/18 at 14:00 Hydroxychloroquine Sulfate (Plaquenil) 200 mg BID PO Last administered on 11/15/18 08:57; Admin Dose 200 MG; Start 10/09/18 at 21:00 Diagnostic Test (Pha) (Accu-Chek) 1 ea 02 XX Last administered on 11/15/18 01:23; Admin Dose 1 EA; Start 10/10/18 at 02:00 Insulin Aspart (Novolog Insulin Pen) NOVOLOG *CUSTOM* ALGORITHM Q6H SC Last administered on 11/15/18 01:21; Admin Dose 1 UNIT; Start 10/09/18 at 14:00 Lactobacillus Acidophilus (Florajen3 Capsule) 1 each BID GTB Last administered on 11/15/18 08:58; Admin Dose 1 EACH; Start 10/09/18 at 21:00 Lansoprazole (Prevacid) 30 mg BID@,18 GTB Last administered on 11/15/18 05:01; Admin Dose 30 MG; Start 10/09/18 at 18:00 Levetiracetam (Keppra Liquid) 500 mg BID GTB Last administered on 11/15/18 08:57; Admin Dose 500 MG; Start 10/09/18 at 21:00 Magnesium Oxide (Mag-Ox 400) 400 mg BID GTB Last administered on 11/15/18 08:57; Admin Dose 400 MG; Start 10/09/18 at 21:00 Metoclopramide HCl (Reglan) 10 mg TID IV Last administered on 11/15/18 13:37; Admin Dose 10 MG; Start 10/09/18 at 21:00 Miconazole Nitrate (Miconazole 2% Cr) 1 applic BID TOP Last administered on 11/15/18 08:59; Admin Dose 1 APPLIC; Start 10/09/18 at 21:00 Miconazole Nitrate (Miconazole 2% Cr) 1 applic Q12 PRN TOP rash; Start 10/09/18 at 14:00 Ondansetron HCl (Zofran Inj) 4 mg Q4H PRN IV NAUSEA AND/OR VOMITING Last administered on 10/19/18 16:37; Admin Dose 4 MG; Start 10/09/18 at 14:00 Polyethylene Glycol (Miralax) 17 gm DAILY PRN GTB CONSTIPATION; Start 10/09/18 at 14:00 Senna (Senokot) 2 tab Q8 PRN PO CONSTIPATION; Start 10/09/18 at 14:00 Trimethoprim/ Sulfamethoxazole (Bactrim Susp) 40 ml DAILY GTB Last administered on 11/15/18 09:10; Admin Dose 40 ML; Start 10/10/18 at 09:00 Zolpidem Tartrate (Ambien) 5 mg HS PRN PO INSOMNIA Last administered on 01:16; Admin Dose 5 MG; Start 10/09/18 at 14:00 Miscellaneous Information 1 ea NOTE XX ; Start 10/09/18 at 15:00 Glucose (Glutose) 15 gm Q15M PRN PO DECREASED GLUCOSE; Start 10/09/18 at 15:00 Glucose (Glutose) 22.5 gm Q15M PRN PO DECREASED GLUCOSE; Start 10/09/18 at 15:00 Dextrose (D50w Syringe) 25 ml Q15M PRN IV DECREASED GLUCOSE; Start 10/09/18 at 15:00 Dextrose (D50w Syringe) 50 ml Q15M PRN IV DECREASED GLUCOSE; Start 10/09/18 at 15:00 Glucagon (Glucagen) 1 mg Q15M PRN IM DECREASED GLUCOSE; Start 10/09/18 at 15:00 Glucose (Glutose) 15 gm Q15M PRN BUCCAL DECREASED GLUCOSE; Start 10/09/18 at 15:00 Albuterol (Ventolin Hfa) 4 puff Q6H RESP THERAPY INH Last administered on 11/15 13:02; Admin Dose 4 PUFF; Start 10/10/18 at 02:00 Ipratropium [place] (Atrovent Hfa) 4 puff Q6H RESP THERAPY INH Last administered on 11/15/18 13:01; Admin Dose 4 PUFF; Start 10/10/18 at 02:00 Linagliptin (Tradjenta) 5 mg DAILY PO Last administered on 11/15/18 08:57; Admin Dose 5 MG; Start 10/16/18 at 10:30 Quetiapine Fumarate (Seroquel) 100 mg BID GTB Last administered on 11/15/18 09:10; Admin Dose 100 MG; Start 10/21/18 at 21:00 Calcium Carbonate (Ca Carbonate) 1,250 mg QID GTB Last administered on 11/15/18 13:37; Admin Dose 1,250 MG; Start 10/24/18 at 13:00 Metoprolol Tartrate (Lopressor) 5 mg Q4H PRN IV HR>110 Hold SBP<100 Last administered on 11/11/18 18:31; Admin Dose 5 MG; Start 10/28/18 at 12:30 Phenylephrine HCl 40 mg/Dextrose 250 ml @ 37.5 mls/hr TITRATE IV Last admi nistered on 11/02/18 09:05; Admin Dose 11.25 MLS/HR; Start 11/01/18 at 13:30 IV Flush (NS 10 ml) 10 ml PRN PRN IV IV PROTOCOL; Start 11/01/18 at 16:30 Collagenase (Santyl) 1 applic DAILY TOP Last administered on 11/15/18 08:59; Admin Dose 1 APPLIC; Start 11/01/18 at 19:30 Norepinephrine 32 mg/Dextrose 250 ml @ 0.47 mls/hr TITRATE IV Last administered on 11/02/18 12:15; Admin Dose 0.47 MLS/HR; Start 11/02/18 at 11:30 Midodrine (Proamatine) 5 mg TID@09,13,17 GTB Last administered on 11/08/18 12:53; Admin Dose 5 MG; Start 11/03/18 at 09:00; Status Hold Guaifenesin (Robitussin Liquid Cup) 100 mg Q4H PRN PO COUGH Last administered on 11/13/18 17:58; Admin Dose 100 MG; Start 11/03/18 at 12:00 Calcitriol (Rocaltrol) 1.5 mcg BID PO Last administered on 11/15/18 08:58; Admin Dose 1.5 MCG; Start 11/07/18 at 21:00 Lorazepam (Ativan) 1 mg Q4 GTB Last administered on 11/15/18 13:37; Admin Dose 1 MG; Start 11/09/18 at 14:00 Carvedilol (Coreg) 6.25 mg BID PO Last administered on 11/15/18 08:58; Admin Dose 6.25 MG; Start 11/09/18 at 21:00 Benazepril HCl (Lotensin) 10 mg DAILY PO Last administered on 11/15/18 08:58; Admin Dose 10 MG; Start 11/10/18 at 09:00 Digoxin (Digoxin) 0.25 mg DAILY@13 PO Last administered on 11/15/18 13:38; Admin Dose 0.25 MG; Start 11/11/18 at 13:00 Furosemide (Lasix) 20 mg DAILY IV Last administered on 11/15/18 08:58; Admin Dose 20 MG; Start 11/10/18 at 12:30 Hydromorphone HCl (Dilaudid) 3 mg Q4H PRN PO MODERATE PAIN LEVEL 7-10 Last administered on 11/13/18 17:59; Admin Dose 3 MG; Start 11/10/18 at 22:00 Cefepime HCl 50 ml @ 100 mls/hr Q12 IVPB Last administered on 11/15/18 08:59; Admin Dose 100 MLS/HR; Start 11/10/18 at 23:30 Fentanyl 100 ml @ 2.5 mls/hr TITRATE IV Last administered on 11/14/18 10:24; Admin Dose 2.5 MLS/HR; Start 11/14/18 at 09:00 Ascorbic Acid (Vitamin C) 250 mg DAILY GTB Last administered on 11/15/18 09:10; Admin Dose 250 MG; Start 11/15/18 at 09:00; Stop 11/29/18 at 09:00 Zinc Sulfate (Zinc Sulfate) 220 mg DAILY GTB Last administered on 11/15/18 09:10; Admin Dose 220 MG; Start 11/15/18 at 09:00; Stop 11/29/18 at 09:00 Miscellaneous Information (*Order Clarification Bulletin) MEDICATION REQUIRES CLARIFICATI... Q8H XX ; Start 11/15/18 at 12:00 Hydrocortisone (Cortef) 15 mg HS PEG ; Start 11/15/18 at 21:00 Hydrocortisone (Cortef) 15 mg QAM PEG ; Start 11/16/18 at 09:00 Hydrocortisone (Cortef) 15 mg AC DINNER PEG ; Start 11/15/18 at 17:05 NEMO MARTINEZ M.D. Nov 15, 2018 14:33
--- NOTE | 2018-11-15 15:16 | PN ---
Date/Time of Note Date/Time of Note DATE: 11/15/18 TIME: 15:13 Assessment/Plan VTE Prophylaxis Risk score (from Ns)>0 risk: 8 SCD applied (from [facility] [place]): Yes Pharmacological prophylaxis: NA/contraindicated Pharm contraindication: other Lines/Catheters IV Catheter Type (from Nrsg): PICC Line Central line still needed: Yes Urinary Cath still in place: Yes Reason Cath still needed: urinary retention Assessment/Plan Hospital Course Patient continues on fentanyl drip for pain control on vent with 85% FiO2 and PEEP of 8. Low-grade fever continues on cefepime for pneumonia. Assessment/Plan - Acute on chronic hypoxemic respiratory failure with underlying ARDS, continue ventilatory support. Dr. Villa is following in pulmonology consultation. - Acute kidney injury, resolved, continue to monitor BUN and creatinine. Dr. Hobson is following in nephrology consultation. -Tachycardia, Dr. Joshi is following in cardiology consultation. - Cardiomyopathy with EF 35-40% - Rheumatoid arthritis with steroid dependence. - Dysphagia. Continue GT feeding. - Anemia of chronic disease. - Hypoparathyroidism - Hypertension. - Functional quadriplegia - Hx of severe cervical spinal cord stenosis with cord compression from C3-C5, s/p laminectomy. - History of fibromyalgia rheumatica - Hx of VAT on 08/11/2018 - Poor prognosis, Dr. Zurita is following in palliative care consultation. - DNR status Critical care time spent 30 minutes. Further recommendations based on clinical course. Plan of care discussed with Dr. Rosales Result Diagram: 11/15/18 0500 11/15/18 0500 Results 24hrs Laboratory Tests Test 11/14/18 20:20 11/15/18 01:15 11/15/18 05:00 11/15/18 07:00 Bedside Glucose 135 168 White Blood 15.8 #H Count Red Blood Count 3.00 L Hemoglobin 8.5 L Hematocrit 28.6 L Mean Corpuscular 95.3 Volume Mean Corpuscular 28.3 L Hemoglobin Mean Corpuscular 29.7 L Hemoglobin Dawn nt Red Cell 16.0 H Distribution Width Platelet Count 460 H Mean Platelet 10.8 H Volume Immature 1.600 H Granulocytes % Neutrophils % 68.7 Lymphocytes % 8.2 L Monocytes % 10.0 Eosinophils % 10.7 H Basophils % 0.8 Nucleated Red 0.0 Blood Cells % Immature 0.260 H Granulocytes # Neutrophils # 10.9 H Lymphocytes # 1.3 Monocytes # 1.6 H Eosinophils # 1.7 H Basophils # 0.1 Nucleated Red 0.0 Blood Cells # Sodium Level 141 Potassium Level 3.5 Chloride Level 89 L Carbon Dioxide 49 *H Level Anion Gap 3 L Blood Urea 32 H Nitrogen Creatinine 0.39 L Est Glomerular > 60 Filtrat Rate mL/min Glucose Level 117 Calcium Level 8.4 Total Bilirubin 0.2 Direct Bilirubin 0.00 Indirect 0.2 Bilirubin Aspartate Amino 37 Transf (AST/SGOT ) Alanine 28 Aminotransferase (ALT/SGPT) Alkaline 124 H Phosphatase Total Protein 5.3 L Albumin 2.8 L Globulin 2.50 Albumin/Globulin 1.12 Ratio Blood Gas Blood arterial Specimen Source Arterial Blood 11/15/2018 7:21:00 Date Drawn AM Arterial Blood 7.443 pH (Temp corrected) Arterial Blood 78.3 H pCO2 (Temp correct) Arterial Blood 77.7 L pO2 (Temp corrected) Arterial Blood 52.3 *H HCO3 Arterial Blood 24.9 H Base Excess Arterial Blood 95.0 Oxygen Saturatio n [place] Test N/A Arterial Blood Left Radial Gas Puncture Site Arterial 1.2 Blood Carboxyhem oglobin Arterial Blood 0.1 Methemoglobin Blood Gas A-a O2 447.1 H Differential Oxyhemoglobin 93.8 Percent Blood Gas 37.0 Temperature Blood Gas 20.0 Respiration Rate Blood Gas Actual 32 Respiration Rate Blood Gas VENT - PC Modality FiO2 85.0 Blood Gas Low 8.0 PEEP Setting Blood Gas JLIM RN Critical Value Read Back Blood Gas TM Notified Whom Blood Gas 11/15/2018 8:13:00 Notified Time AM Test 11/15/18 07:27 11/15/18 13:41 11/15/18 14:30 Bedside Glucose 121 145 Urine Color YELLOW Urine Clarity SLIGHTLY CLOUDY A Urine pH 7.0 Urine Specific 1.013 [place] Urine Ketones NEGATIVE Urine Nitrite NEGATIVE Urine Bilirubin NEGATIVE Urine NEGATIVE Urobilinogen Urine Leukocyte NEGATIVE Esterase Urine 11 H Microscopic RBC Urine 7 H Microscopic WBC Urine Bacteria FEW A Urine Mucus FEW A Urine Hemoglobin NEGATIVE Urine Glucose NEGATIVE Urine Total NEGATIVE Protein Exam/Review of Systems Exam Vitals Vital Signs Date Temp Pulse Resp B/P (MAP) Pulse Ox O2 O2 Flow FiO2 Time Delivery Rate 11/15/18 110 46 92 85 13:18 11/15/18 96/57 (70) Mechanical 13:00 Ventilator 11/15/18 99.8 12:00 Intake and Output 11/14/18 11/14/18 11/15/18 1515:00 23:00 07:00 IntakeIntake Total 431.25 ml 465.0 ml 430.0 ml OutputOutput Total 750 ml 250 ml 600 ml BalanceBalance -318.75 ml 215.0 ml -170.0 ml Exam Constitutional: alert, oriented, frail Neck: other (trach) Respiratory: diminished breath sounds Cardiovascular: regular rate and rhythm Gastrointestinal: soft, non-tender, other Neurological: nl mental status Results Results 24hrs Laboratory Tests Test 11/14/18 20:20 11/15/18 01:15 11/15/18 05:00 11/15/18 07:00 Bedside Glucose 135 168 White Blood 15.8 #H Count Red Blood Count 3.00 L Hemoglobin 8.5 L Hematocrit 28.6 L Mean Corpuscular 95.3 Volume Mean Corpuscular 28.3 L Hemoglobin Mean Corpuscular 29.7 L Hemoglobin Dawn nt Red Cell 16.0 H Distribution Width Platelet Count 460 H Mean Platelet 10.8 H Volume Immature 1.600 H Granulocytes % Neutrophils % 68.7 Lymphocytes % 8.2 L Monocytes % 10.0 Eosinophils % 10.7 H Basophils % 0.8 Nucleated Red 0.0 Blood Cells % Immature 0.260 H Granulocytes # Neutrophils # 10.9 H Lymphocytes # 1.3 Monocytes # 1.6 H Eosinophils # 1.7 H Basophils # 0.1 Nucleated Red 0.0 Blood Cells # Sodium Level 141 Potassium Level 3.5 Chloride Level 89 L Carbon Dioxide 49 *H Level Anion Gap 3 L Blood Urea 32 H Nitrogen Creatinine 0.39 L Est Glomerular > 60 Filtrat Rate mL/min Glucose Level 117 Calcium Level 8.4 Total Bilirubin 0.2 Direct Bilirubin 0.00 Indirect 0.2 Bilirubin Aspartate Amino 37 Transf (AST/SGOT ) Alanine 28 Aminotransferase (ALT/SGPT) Alkaline 124 H Phosphatase Total Protein 5.3 L Albumin 2.8 L Globulin 2.50 Albumin/Globulin 1.12 Ratio Blood Gas Blood arterial Specimen Source Arterial Blood 11/15/2018 7:21:00 Date Drawn AM Arterial Blood 7.443 pH (Temp corrected) Arterial Blood 78.3 H pCO2 (Temp correct) Arterial Blood 77.7 L pO2 (Temp corrected) Arterial Blood 52.3 *H HCO3 Arterial Blood 24.9 H Base Excess Arterial Blood 95.0 Oxygen Saturatio n [place] Test N/A Arterial Blood Left Radial Gas Puncture Site Arterial 1.2 Blood Carboxyhem oglobin Arterial Blood 0.1 Methemoglobin Blood Gas A-a O2 447.1 H Differential Oxyhemoglobin 93.8 Percent Blood Gas 37.0 Temperature Blood Gas 20.0 Respiration Rate Blood Gas Actual 32 Respiration Rate Blood Gas VENT - PC Modality FiO2 85.0 Blood Gas Low 8.0 PEEP Setting Blood Gas JLIM RN Critical Value Read Back Blood Gas TM Notified Whom Blood Gas 11/15/2018 8:13:00 Notified Time AM Test 11/15/18 07:27 11/15/18 13:41 11/15/18 14:30 Bedside Glucose 121 145 Urine Color YELLOW Urine Clarity SLIGHTLY CLOUDY A Urine pH 7.0 Urine Specific 1.013 [place] Urine Ketones NEGATIVE Urine Nitrite NEGATIVE Urine Bilirubin NEGATIVE Urine NEGATIVE Urobilinogen Urine Leukocyte NEGATIVE Esterase Urine 11 H Microscopic RBC Urine 7 H Microscopic WBC Urine Bacteria FEW A Urine Mucus FEW A Urine Hemoglobin NEGATIVE Urine Glucose NEGATIVE Urine Total NEGATIVE Protein Medications Medication Current Medications Acetaminophen (Tylenol Liquid) 650 mg Q4H PRN GTB MILD PAIN(1-3)OR ELEVATED TEMP Last administered on 11/14/18at 16:44; Admin Dose 650 MG; Start 10/09/18 at 14:00 Al Hydrox/Mg Hydrox/Simethicone (Mag-Al Plus) 15 ml Q6H PRN PO GASTROINTESTINAL UPSET Last administered on 10/17/18 13:18; Admin Dose 15 ML; Start 10/09/18 at 14:00 Eye Lubricant (Artificial Tears Oph) 1 drop Q6H PRN BOTH EYES DRY EYES Last administered on 11/03/18at 09:33; Admin Dose 1 DROP; Start 10/09/18 at 14:00 Bisacodyl (Dulcolax Supp) 10 mg DAILY PRN VT CONSTIPATION; Start 10/09/18 at 14:00 Clonidine (Catapres) 0.1 mg DAILY PRN GTB ELEVATED BLOOD PRESSURE; Start 10/09/18 at 14:00 Diltiazem HCl (Cardizem Iv) 5 mg Q4 PRN IV ELEVATED HEART RATE Last administered on 11/06/18at 18:47; Admin Dose 5 MG; Start 10/09/18 at 14:00 Diphenhydramine HCl (Benadryl Liquid Cup) 25 mg Q6 PRN GTB ITCHING Last administered on 10/22/18 20:25; Admin Dose 25 MG; Start 10/09/18 at 14:00 Duloxetine HCl (Cymbalta) 30 mg DAILY PO Last administered on 11/15/18 08:58; Admin Dose 30 MG; Start 10/10/18 at 09:00 Gabapentin (Neurontin Liquid) 400 mg Q8 GTB Last administered on 11/15/18 13:47; Admin Dose 400 MG; Start 10/09/18 at 15:30 Hydralazine HCl (Apresoline) 10 mg Q4H PRN IV ELEVATED BLOOD PRESSURE; Start 10/09/18 at 14:00 Hydroxychloroquine Sulfate (Plaquenil) 200 mg BID PO Last administered on 11/15/18 08:57; Admin Dose 200 MG; Start 10/09/18 at 21:00 Diagnostic Test (Pha) (Accu-Chek) 1 ea 02 XX Last administered on 11/15/18 01:23; Admin Dose 1 EA; Start 10/10/18 at 02:00 Insulin Aspart (Novolog Insulin Pen) NOVOLOG *CUSTOM* ALGORITHM Q6H SC Last administered on 11/15/18 01:21; Admin Dose 1 UNIT; Start 10/09/18 at 14:00 Lactobacillus Acidophilus (Florajen3 Capsule) 1 each BID GTB Last administered on 11/15/18 08:58; Admin Dose 1 EACH; Start 10/09/18 at 21:00 Lansoprazole (Prevacid) 30 mg BID@,18 GTB Last administered on 11/15/18 05:01; Admin Dose 30 MG; Start 10/09/18 at 18:00 Levetiracetam (Keppra Liquid) 500 mg BID GTB Last administered on 11/15/18 08:57; Admin Dose 500 MG; Start 10/09/18 at 21:00 Magnesium Oxide (Mag-Ox 400) 400 mg BID GTB Last administered on 11/15/18 08:57; Admin Dose 400 MG; Start 10/09/18 at 21:00 Metoclopramide HCl (Reglan) 10 mg TID IV Last administered on 4/2/19at 13:37; Admin Dose 10 MG; Start 10/09/18 at 21:00 Miconazole Nitrate (Miconazole 2% Cr) 1 applic BID TOP Last administered on 11/15/18 08:59; Admin Dose 1 APPLIC; Start 10/09/18 at 21:00 Miconazole Nitrate (Miconazole 2% Cr) 1 applic Q12 PRN TOP rash; Start 10/09/18 at 14:00 Ondansetron HCl (Zofran Inj) 4 mg Q4H PRN IV NAUSEA AND/OR VOMITING Last administered on 10/19/18 16:37; Admin Dose 4 MG; Start 10/09/18 at 14:00 Polyethylene Glycol (Miralax) 17 gm DAILY PRN GTB CONSTIPATION; Start 10/09/18 at 14:00 Senna (Senokot) 2 tab Q8 PRN PO CONSTIPATION; Start 10/09/18 at 14:00 Trimethoprim/ Sulfamethoxazole (Bactrim Susp) 40 ml DAILY GTB Last administered on 11/15/18 09:10; Admin Dose 40 ML; Start 10/10/18 at 09:00 Zolpidem Tartrate (Ambien) 5 mg HS PRN PO INSOMNIA Last administered on 11/03/18 01:16; Admin Dose 5 MG; Start 10/09/18 at 14:00 Miscellaneous Information 1 ea NOTE XX ; Start 10/09/18 at 15:00 Glucose (Glutose) 15 gm Q15M PRN PO DECREASED GLUCOSE; Start 10/09/18 at 15:00 Glucose (Glutose) 22.5 gm Q15M PRN PO DECREASED GLUCOSE; Start 10/09/18 at 15:00 Dextrose (D50w Syringe) 25 ml Q15M PRN IV DECREASED GLUCOSE; Start 10/09/18 at 15:00 Dextrose (D50w Syringe) 50 ml Q15M PRN IV DECREASED GLUCOSE; Start 10/09/18 at 15:00 Glucagon (Glucagen) 1 mg Q15M PRN IM DECREASED GLUCOSE; Start 10/09/18 at 15:00 Glucose (Glutose) 15 gm Q15M PRN BUCCAL DECREASED GLUCOSE; Start 10/09/18 at 15:00 Albuterol (Ventolin Hfa) 4 puff Q6H RESP THERAPY INH Last administered on 11/15/18 13:02; Admin Dose 4 PUFF; Start 10/10/18 at 02:00 Ipratropium [place] (Atrovent Hfa) 4 puff Q6H RESP THERAPY INH Last administered on 11/15/18 13:01; Admin Dose 4 PUFF; Start 10/10/18 at 02:00 Linagliptin (Tradjenta) 5 mg DAILY PO Last administered on 11/15/18 08:57; Admin Dose 5 MG; Start 10/16/18 at 10:30 Quetiapine Fumarate (Seroquel) 100 mg BID GTB Last administered on 11/15/18 09:10; Admin Dose 100 MG; Start 10/21/18 at 21:00 Calcium Carbonate (Ca Carbonate) 1,250 mg QID GTB Last administered on 11/15/18 13:37; Admin Dose 1,250 MG; Start 10/24/18 at 13:00 Metoprolol Tartrate (Lopressor) 5 mg Q4H PRN IV HR>110 Hold SBP<100 Last administered on 11/11/18 18:31; Admin Dose 5 MG; Start 10/28/18 at 12:30 Phenylephrine HCl 40 mg/Dextrose 250 ml @ 37.5 mls/hr TITRATE IV Last administered on 11/02/18 09:05; Admin Dose 11.25 MLS/HR; Start 11/01/18 at 13:30 IV Flush (NS 10 ml) 10 ml PRN PRN IV IV PROTOCOL; Start 11/01/18 at 16:30 Collagenase (Santyl) 1 applic DAILY TOP Last administered on 11/15/18 08:59; Admin Dose 1 APPLIC; Start 11/01/18 at 19:30 Norepinephrine 32 mg/Dextrose 250 ml @ 0.47 mls/hr TITRATE IV Last administered on 11/02/18 12:15; Admin Dose 0.47 MLS/HR; Start 11/02/18 at 11:30 Midodrine (Proamatine) 5 mg TID@,,17 GTB Last administered on 11/08/18 12:53; Admin Dose 5 MG; Start 11/03/18 at 09:00; Status Hold Guaifenesin (Robitussin Liquid Cup) 100 mg Q4H PRN PO COUGH Last administered on 11/13/18 17:58; Admin Dose 100 MG; Start 11/03/18 at 12:00 Calcitriol (Rocaltrol) 1.5 mcg BID PO Last administered on 11/15/18 08:58; Admin Dose 1.5 MCG; Start 11/07/18 at 21:00 Lorazepam (Ativan) 1 mg Q4 GTB Last administered on 11/15/18 13:37; Admin Dose 1 MG; Start 11/09/18 at 14:00 Carvedilol (Coreg) 6.25 mg BID PO Last administered on 11/15/18 08:58; Admin Dose 6.25 MG; Start 11/09/18 at 21:00 Benazepril HCl (Lotensin) 10 mg DAILY PO Last administered on 11/15/18 08:58; Admin Dose 10 MG; Start 11/10/18 at 09:00 Digoxin (Digoxin) 0.25 mg DAILY@13 PO Last administered on 11/15/18 13:38; Admin Dose 0.25 MG; Start 11/11/18 at 13:00 Furosemide (Lasix) 20 mg DAILY IV Last administered on 11/15/18 08:58; Admin Dose 20 MG; Start 11/10/18 at 12:30 Hydromorphone HCl (Dilaudid) 3 mg Q4H PRN PO MODERATE PAIN LEVEL 7-10 Last administered on 11/13/18 17:59; Admin Dose 3 MG; Start 11/10/18 at 22:00 Cefepime HCl 50 ml @ 100 mls/hr Q12 IVPB Last administered on 11/15/18 08:59; Admin Dose 100 MLS/HR; Start 11/10/18 at 23:30 Fentanyl 100 ml @ 2.5 mls/hr TITRATE IV Last administered on 11/14/18 10:24; Admin Dose 2.5 MLS/HR; Start 11/14/18 at 09:00 Ascorbic Acid (Vitamin C) 250 mg DAILY GTB Last administered on 11/15/18 09:10; Admin Dose 250 MG; Start 11/15/18 at 09:00; Stop 11/29/18 at 09:00 Zinc Sulfate (Zinc Sulfate) 220 mg DAILY GTB Last administered on 11/15/18 09:10; Admin Dose 220 MG; Start 11/15/18 at 09:00; Stop 11/29/18 at 09:00 Miscellaneous Information (*Order Clarification Bulletin) MEDICATION REQUIRES CLARIFICATI... Q8H XX ; Start 11/15/18 at 12:00 Hydrocortisone (Cortef) 15 mg HS PEG ; Start 11/15/18 at 21:00 Hydrocortisone (Cortef) 15 mg QAM PEG ; Start 11/16/18 at 09:00 Hydrocortisone (Cortef) 15 mg AC DINNER PEG ; Start 11/15/18 at 17:05 CAROLYN LANGLEY Nov 15, 2018 15:16
[2018-11-15] MEDS: HYDROCORTISONE 5 MG TAB PEG SCH ×2 (16:57→20:41)
--- NOTE | 2018-11-15 18:21 | CONS ---
Consultation Date/Type/Reason Admit Date/Time Oct 09, 2018 at 12:16 Date/Time of Note DATE: 11/15/18 TIME: 18:[address] Villa request another family conference as patient is not improving continues to require high FiO2, mental status waxes and wanes and overall prognosis appears to be declining. Past Medical History Medical History: diabetes, hypertension, renal disease, other (COPD, RA, spinal stenosis, neuropathy, cervical myelopathy with cervical radiculopathy, chronic pain syndrome, tracheobronchitis, fibromyalgia, MAC infection, anemia, chronic steroid therapy) Medications Current Medications Acetaminophen (Tylenol Liquid) 650 mg Q4H PRN GTB MILD PAIN(1-3)OR ELEVATED TEMP Last administered on 11/14/18 16:44; Admin Dose 650 MG; Start 10/09/18 at 14:00 Al Hydrox/Mg Hydrox/Simethicone (Mag-Al Plus) 15 ml Q6H PRN PO GASTROINTESTINAL UPSET Last administered on 10/17/18 13:18; Admin Dose 15 ML; Start 10/09/18 at 14:00 Eye Lubricant (Artificial Tears Oph) 1 drop Q6H PRN BOTH EYES DRY EYES Last administered on 11/03/18 09:33; Admin Dose 1 DROP; Start 10/09/18 at 14:00 Bisacodyl (Dulcolax Supp) 10 mg DAILY PRN SC CONSTIPATION; Start 10/09/18 at 14:00 Clonidine (Catapres) 0.1 mg DAILY PRN GTB ELEVATED BLOOD PRESSURE; Start 10/09/18 at 14:00 Diltiazem HCl (Cardizem Iv) 5 mg Q4 PRN IV ELEVATED HEART RATE Last administered on 11/06/18 18:47; Admin Dose 5 MG; Start 10/09/18 at 14:00 Diphenhydramine HCl (Benadryl Liquid Cup) 25 mg Q6 PRN GTB ITCHING Last administered on 10/22/18 20:25; Admin Dose 25 MG; Start 10/09/18 at 14:00 Duloxetine HCl (Cymbalta) 30 mg DAILY PO Last administered on 11/15/18 08:58; Admin Dose 30 MG; Start 10/10/18 at 09:00 Gabapentin (Neurontin Liquid) 400 mg Q8 GTB Last administered on 11/15/18 13:47; Admin Dose 400 MG; Start 10/09/18 at 15:30 Hydralazine HCl (Apresoline) 10 mg Q4H PRN IV ELEVATED BLOOD PRESSURE; Start 10/09/18 at 14:00 Hydroxychloroquine Sulfate (Plaquenil) 200 mg BID PO Last administered on 11/15/18 08:57; Admin Dose 200 MG; Start 10/09/18 at 21:00 Diagnostic Test (Pha) (Accu-Chek) 1 ea 02 XX Last administered on 11/15/18 01:23; Admin Dose 1 EA; Start 10/10/18 at 02:00 Insulin Aspart (Novolog Insulin Pen) NOVOLOG *CUSTOM* ALGORITHM Q6H SC Last administered on 11/15/18 01:21; Admin Dose 1 UNIT; Start 10/09/18 at 14:00 Lactobacillus Acidophilus (Florajen3 Capsule) 1 each BID GTB Last administered on 11/15/18 08:58; Admin Dose 1 EACH; Start 10/09/18 at 21:00 Lansoprazole (Prevacid) 30 mg BID@,18 GTB Last administered on 11/15/18 16:57; Admin Dose 30 MG; Start 10/09/18 at 18:00 Levetiracetam (Keppra Liquid) 500 mg BID GTB Last administered on 11/15/18 08:57; Admin Dose 500 MG; Start 10/09/18 at 21:00 Magnesium Oxide (Mag-Ox 400) 400 mg BID GTB Last administered on 11/15/18 08:57; Admin Dose 400 MG; Start 10/09/18 at 21:00 Metoclopramide HCl (Reglan) 10 mg TID IV Last administered on 11/15/18 13:37; Admin Dose 10 MG; Start 10/09/18 at 21:00 Miconazole Nitrate (Miconazole 2% Cr) 1 applic BID TOP Last administered on 11/15/18 08:59; Admin Dose 1 APPLIC; Start 10/09/18 at 21:00 Miconazole Nitrate (Miconazole 2% Cr) 1 applic Q12 PRN TOP rash; Start 10/09/18 at 14:00 Ondansetron HCl (Zofran Inj) 4 mg Q4H PRN IV NAUSEA AND/OR VOMITING Last administered on 10/19/18at 16:37; Admin Dose 4 MG; Start 10/09/18 at 14:00 Polyethylene Glycol (Miralax) 17 gm DAILY PRN GTB CONSTIPATION; Start 10/09/18 at 14:00 Senna (Senokot) 2 tab Q8 PRN PO CONSTIPATION; Start 10/09/18 at 14:00 Trimethoprim/ Sulfamethoxazole (Bactrim Susp) 40 ml DAILY GTB Last administered on 11/15/18at 09:10; Admin Dose 40 ML; Start 10/10/18 at 09:00 Zolpidem Tartrate (Ambien) 5 mg HS PRN PO INSOMNIA Last administered on 11/03/18at 01:16; Admin Dose 5 MG; Start 10/09/18 at 14:00 Miscellaneous Information 1 ea NOTE XX ; Start 10/09/18 at 15:00 Glucose (Glutose) 15 gm Q15M PRN PO DECREASED GLUCOSE; Start 10/09/18 at 15:00 Glucose (Glutose) 22.5 gm Q15M PRN PO DECREASED GLUCOSE; Start 10/09/18 at 15:00 Dextrose (D50w Syringe) 25 ml Q15M PRN IV DECREASED GLUCOSE; Start 10/09/18 at 15:00 Dextrose (D50w Syringe) 50 ml Q15M PRN IV DECREASED GLUCOSE; Start 10/09/18 at 15:00 Glucagon (Glucagen) 1 mg Q15M PRN IM DECREASED GLUCOSE; Start 10/09/18 at 15:00 Glucose (Glutose) 15 gm Q15M PRN BUCCAL DECREASED GLUCOSE; Start 10/09/18 at 15:00 Albuterol (Ventolin Hfa) 4 puff Q6H RESP THERAPY INH Last administered on 11/15/18at 13:02; Admin Dose 4 PUFF; Start 10/10/18 at 02:00 Ipratropium [place] (Atrovent Hfa) 4 puff Q6H RESP THERAPY INH Last administered on 11/15/18 13:01; Admin Dose 4 PUFF; Start 10/10/18 at 02:00 Linagliptin (Tradjenta) 5 mg DAILY PO Last administered on 11/15/18at 08:57; Admin Dose 5 MG; Start 10/16/18 at 10:30 Quetiapine Fumarate (Seroquel) 100 mg BID GTB Last administered on 11/15/18 09:10; Admin Dose 100 MG; Start 10/21/18 at 21:00 Calcium Carbonate (Ca Carbonate) 1,250 mg QID GTB Last administered on 11/15/18 16:57; Admin Dose 1,250 MG; Start 10/24/18 at 13:00 Metoprolol Tartrate (Lopressor) 5 mg Q4H PRN IV HR>110 Hold SBP<100 Last administered on 11/11/18 18:31; Admin Dose 5 MG; Start 10/28/18 at 12:30 Phenylephrine HCl 40 mg/Dextrose 250 ml @ 37.5 mls/hr TITRATE IV Last administered on 11/02/18 09:05; Admin Dose 11.25 MLS/HR; Start 11/01/18 at 13:30 IV Flush (NS 10 ml) 10 ml PRN PRN IV IV PROTOCOL; Start 11/01/18 at 16:30 Collagenase (Santyl) 1 applic DAILY TOP Last administered on 11/15/18 08:59; Admin Dose 1 APPLIC; Start 11/01/18 at 19:30 Norepinephrine 32 mg/Dextrose 250 ml @ 0.47 mls/hr TITRATE IV Last administered on 11/02/18 12:15; Admin Dose 0.47 MLS/HR; Start 11/02/18 at 11:30 Midodrine (Proamatine) 5 mg TID@09,13,17 GTB Last administered on 11/08/18 12:53; Admin Dose 5 MG; Start 11/03/18 at 09:00; Status Hold Guaifenesin (Robitussin Liquid Cup) 100 mg Q4H PRN PO COUGH Last administered on 11/13/18 17:58; Admin Dose 100 MG; Start 11/03/18 at 12:00 Calcitriol (Rocaltrol) 1.5 mcg BID PO Last administered on 11/15/18 08:58; Admin Dose 1.5 MCG; Start 11/07/18 at 21:00 Lorazepam (Ativan) 1 mg Q4 GTB Last administered on 11/15/18 16:57; Admin Dose 1 MG; Start 11/09/18 at 14:00 Carvedilol (Coreg) 6.25 mg BID PO Last administered on 11/15/18 08:58; Admin Dose 6.25 MG; Start 11/09/18 at 21:00 Benazepril HCl (Lotensin) 10 mg DAILY PO Last administered on 11/15/18 08:58; Admin Dose 10 MG; Start 11/10/18 at 09:00 Digoxin (Digoxin) 0.25 mg DAILY@13 PO Last administered on 11/15/18 13:38; Admin Dose 0.25 MG; Start 11/11/18 at 13:00 Furosemide (Lasix) 20 mg DAILY IV Last administered on 11/15/18 08:58; Admin Dose 20 MG; Start 11/10/18 at 12:30 Hydromorphone HCl (Dilaudid) 3 mg Q4H PRN PO MODERATE PAIN LEVEL 7-10 Last administered on 11/13/18 17:59; Admin Dose 3 MG; Start 11/10/18 at 22:00 Cefepime HCl 50 ml @ 100 mls/hr Q12 IVPB Last administered on 11/15/18 08:59; Admin Dose 100 MLS/HR; Start 11/10/18 at 23:30 Fentanyl 100 ml @ 2.5 mls/hr TITRATE IV Last administered on 11/14/18 10:24; Admin Dose 2.5 MLS/HR; Start 11/14/18 at 09:00 Ascorbic Acid (Vitamin C) 250 mg DAILY GTB Last administered on 11/15/18 09:10; Admin Dose 250 MG; Start 11/15/18 at 09:00; Stop 11/29/18 at 09:00 Zinc Sulfate (Zinc Sulfate) 220 mg DAILY GTB Last administered on 11/15/18 09:10; Admin Dose 220 MG; Start 11/15/18 at 09:00; Stop 11/29/18 at 09:00 Miscellaneous Information (*Order Clarification Bulletin) MEDICATION REQUIRES CLARIFICATI... Q8H XX ; Start 11/15/18 at 12:00 Hydrocortisone (Cortef) 15 mg HS PEG ; Start 11/15/18 at 21:00 Hydrocortisone (Cortef) 15 mg QAM PEG ; Start 11/16/18 at 09:00 Hydrocortisone (Cortef) 15 mg AC DINNER PEG Last administered on 11/15/18 16:57; Admin Dose 15 MG; Start 4/2/19 at 17:05 Allergies: Coded Allergies: No Known Allergy (Unverified , 11/03/18) Past Surgical History Past Surgical Hx: other Social History Alcohol Use: none Smoking Status: Never smoker Drug Use: none Exam/Review of Systems Exam Vitals Vital Signs Date Temp Pulse Resp B/P (MAP) Pulse Ox O2 O2 Flow FiO2 Time Delivery Rate 11/15/18 106 25 100/65 98 Mechanical 18:00 (77) Ventilator 11/15/18 99.0 16:00 11/15/18 85 13:18 Intake and Output 11/14/18 11/14/18 11/15/18 1414:59 22:59 06:59 IntakeIntake Total 428.75 ml 460.0 ml 430.0 ml OutputOutput Total 750 ml 275 ml 400 ml BalanceBalance -321.25 ml 185.0 ml 30.0 ml Results Result Diagram: 11/15/18 0500 11/15/18 0500 Results 24hrs Laboratory Tests Test 11/14/18 20:20 11/15/18 01:15 11/15/18 05:00 11/15/18 07:00 Bedside Glucose 135 168 White Blood 15.8 #H Count Red Blood Count 3.00 L Hemoglobin 8.5 L Hematocrit 28.6 L Mean Corpuscular 95.3 Volume Mean Corpuscular 28.3 L Hemoglobin Mean Corpuscular 29.7 L Hemoglobin Dawn nt Red Cell 16.0 H Distribution Width Platelet Count 460 H Mean Platelet 10.8 H Volume Immature 1.600 H Granulocytes % Neutrophils % 68.7 Lymphocytes % 8.2 L Monocytes % 10.0 Eosinophils % 10.7 H Basophils % 0.8 Nucleated Red 0.0 Blood Cells % Immature 0.260 H Granulocytes # Neutrophils # 10.9 H Lymphocytes # 1.3 Monocytes # 1.6 H Eosinophils # 1.7 H Basophils # 0.1 Nucleated Red 0.0 Blood Cells # Sodium Level 141 Potassium Level 3.5 Chloride Level 89 L Carbon Dioxide 49 *H Level Anion Gap 3 L Blood Urea 32 H Nitrogen Creatinine 0.39 L Est Glomerular > 60 Filtrat Rate mL/min Glucose Level 117 Calcium Level 8.4 Total Bilirubin 0.2 Direct Bilirubin 0.00 Indirect 0.2 Bilirubin Aspartate Amino 37 Transf (AST/SGOT ) Alanine 28 Aminotransferase (ALT/SGPT) Alkaline 124 H Phosphatase Total Protein 5.3 L Albumin 2.8 L Globulin 2.50 Albumin/Globulin 1.12 Ratio Blood Gas Blood arterial Specimen Source Arterial Blood 11/15/2018 7:21:00 Date Drawn AM Arterial Blood 7.443 pH (Temp corrected) Arterial Blood 78.3 H pCO2 (Temp correct) Arterial Blood 77.7 L pO2 (Temp corrected) Arterial Blood 52.3 *H HCO3 Arterial Blood 24.9 H Base Excess Arterial Blood 95.0 Oxygen Saturatio n [place] Test N/A Arterial Blood Left Radial Gas Puncture Site Arterial 1.2 Blood Carboxyhem oglobin Arterial Blood 0.1 Methemoglobin Blood Gas A-a O2 447.1 H Differential Oxyhemoglobin 93.8 Percent Blood Gas 37.0 Temperature Blood Gas 20.0 Respiration Rate Blood Gas Actual 32 Respiration Rate Blood Gas VENT - PC Modality FiO2 85.0 Blood Gas Low 8.0 PEEP Setting Blood Gas JLIM RN Critical Value Read Back Blood Gas TM Notified Whom Blood Gas 11/15/2018 8:13:00 Notified Time AM Test 11/15/18 07:27 11/15/18 13:41 11/15/18 14:30 11/15/18 14:55 Bedside Glucose 121 145 Urine Color YELLOW Urine Clarity SLIGHTLY CLOUDY A Urine pH 7.0 Urine Specific 1.013 [place] Urine Ketones NEGATIVE Urine Nitrite NEGATIVE Urine Bilirubin NEGATIVE Urine NEGATIVE Urobilinogen Urine Leukocyte NEGATIVE Esterase Urine 11 H Microscopic RBC Urine 7 H Microscopic WBC Urine Bacteria FEW A Urine Mucus FEW A Urine Hemoglobin NEGATIVE Urine Glucose NEGATIVE Urine Total NEGATIVE Protein Lactic Acid 1.5 Level Medications Medication Current Medications Acetaminophen (Tylenol Liquid) 650 mg Q4H PRN GTB MILD PAIN(1-3)OR ELEVATED TEMP Last administered on 11/14/18 16:44; Admin Dose 650 MG; Start 10/09/18 at 14:00 Al Hydrox/Mg Hydrox/Simethicone (Mag-Al Plus) 15 ml Q6H PRN PO GASTROINTESTINAL UPSET Last administered on 10/17/18 13:18; Admin Dose 15 ML; Start 10/09/18 at 14:00 Eye Lubricant (Artificial Tears Oph) 1 drop Q6H PRN BOTH EYES DRY EYES Last administered on 11/03/18 09:33; Admin Dose 1 DROP; Start 10/09/18 at 14:00 Bisacodyl (Dulcolax Supp) 10 mg DAILY PRN SC CONSTIPATION; Start 10/09/18 at 14:00 Clonidine (Catapres) 0.1 mg DAILY PRN GTB ELEVATED BLOOD PRESSURE; Start 10/09/18 at 14:00 Diltiazem HCl (Cardizem Iv) 5 mg Q4 PRN IV ELEVATED HEART RATE Last administe red on 11/06/18 18:47; Admin Dose 5 MG; Start 10/09/18 at 14:00 Diphenhydramine HCl (Benadryl Liquid Cup) 25 mg Q6 PRN GTB ITCHING Last administered on 10/22/18 20:25; Admin Dose 25 MG; Start 10/09/18 at 14:00 Duloxetine HCl (Cymbalta) 30 mg DAILY PO Last administered on 11/15/18 08:58; Admin Dose 30 MG; Start 10/10/18 at 09:00 Gabapentin (Neurontin Liquid) 400 mg Q8 GTB Last administered on 11/15/18 13:47; Admin Dose 400 MG; Start 10/09/18 at 15:30 Hydralazine HCl (Apresoline) 10 mg Q4H PRN IV ELEVATED BLOOD PRESSURE; Start 10/09/18 at 14:00 Hydroxychloroquine Sulfate (Plaquenil) 200 mg BID PO Last administered on 11/15/18 08:57; Admin Dose 200 MG; Start 10/09/18 at 21:00 Diagnostic Test (Pha) (Accu-Chek) 1 ea 02 XX Last administered on 11/15/18 01:23; Admin Dose 1 EA; Start 10/10/18 at 02:00 Insulin Aspart (Novolog Insulin Pen) NOVOLOG *CUSTOM* ALGORITHM Q6H SC Last administered on 11/15/18 01:21; Admin Dose 1 UNIT; Start 10/09/18 at 14:00 Lactobacillus Acidophilus (Florajen3 Capsule) 1 each BID GTB Last administered on 11/15/18 08:58; Admin Dose 1 EACH; Start 10/09/18 at 21:00 Lansoprazole (Prevacid) 30 mg BID@06,18 GTB Last administered on 11/15/18 16:57; Admin Dose 30 MG; Start 10/09/18 at 18:00 Levetiracetam (Keppra Liquid) 500 mg BID GTB Last administered on 11/15/18 08:57; Admin Dose 500 MG; Start 10/09/18 at 21:00 Magnesium Oxide (Mag-Ox 400) 400 mg BID GTB Last administered on 11/15/18 08:57; Admin Dose 400 MG; Start 10/09/18 at 21:00 Metoclopramide HCl (Reglan) 10 mg TID IV Last administered on 11/15/18 13:37; Admin Dose 10 MG; Start 10/09/18 at 21:00 Miconazole Nitrate (Miconazole 2% Cr) 1 applic BID TOP Last administered on 11/15/18 08:59; Admin Dose 1 APPLIC; Start 10/09/18 at 21:00 Miconazole Nitrate (Miconazole 2% Cr) 1 applic Q12 PRN TOP rash; Start 10/09/18 at 14:00 Ondansetron HCl (Zofran Inj) 4 mg Q4H PRN IV NAUSEA AND/OR VOMITING Last administered on 10/19/18at 16:37; Admin Dose 4 MG; Start 10/09/18 at 14:00 Polyethylene Glycol (Miralax) 17 gm DAILY PRN GTB CONSTIPATION; Start 10/09/18 at 14:00 Senna (Senokot) 2 tab Q8 PRN PO CONSTIPATION; Start 10/09/18 at 14:00 Trimethoprim/ Sulfamethoxazole (Bactrim Susp) 40 ml DAILY GTB Last administered on 11/15/18at 09:10; Admin Dose 40 ML; Start 10/10/18 at 09:00 Zolpidem Tartrate (Ambien) 5 mg HS PRN PO INSOMNIA Last administered on 11/03/18at 01:16; Admin Dose 5 MG; Start 10/09/18 at 14:00 Miscellaneous Information 1 ea NOTE XX ; Start 10/09/18 at 15:00 Glucose (Glutose) 15 gm Q15M PRN PO DECREASED GLUCOSE; Start 10/09/18 at 15:00 Glucose (Glutose) 22.5 gm Q15M PRN PO DECREASED GLUCOSE; Start 10/09/18 at 15:00 Dextrose (D50w Syringe) 25 ml Q15M PRN IV DECREASED GLUCOSE; Start 10/09/18 at 15:00 Dextrose (D50w Syringe) 50 ml Q15M PRN IV DECREASED GLUCOSE; Start 10/09/18 at 15:00 Glucagon (Glucagen) 1 mg Q15M PRN IM DECREASED GLUCOSE; Start 10/09/18 at 15:00 Glucose (Glutose) 15 gm Q15M PRN BUCCAL DECREASED GLUCOSE; Start 10/09/18 at 15:00 Albuterol (Ventolin Hfa) 4 puff Q6H RESP THERAPY INH Last administered on 11/15/18 13:02; Admin Dose 4 PUFF; Start 10/10/18 at 02:00 Ipratropium [place] (Atrovent Hfa) 4 puff Q6H RESP THERAPY INH Last administered on 11/15/18 13:01; Admin Dose 4 PUFF; Start 10/10/18 at 02:00 Linagliptin (Tradjenta) 5 mg DAILY PO Last administered on 11/15/18 08:57; Admin Dose 5 MG; Start 10/16/18 at 10:30 Quetiapine Fumarate (Seroquel) 100 mg BID GTB Last administered on 11/15/18 09:10; Admin Dose 100 MG; Start 10/21/18 at 21:00 Calcium Carbonate (Ca Carbonate) 1,250 mg QID GTB Last administered on 11/15/18 16:57; Admin Dose 1,250 MG; Start 10/24/18 at 13:00 Metoprolol Tartrate (Lopressor) 5 mg Q4H PRN IV HR>110 Hold SBP<100 Last administered on 11/11/18 18:31; Admin Dose 5 MG; Start 10/28/18 at 12:30 Phenylephrine HCl 40 mg/Dextrose 250 ml @ 37.5 mls/hr TITRATE IV Last administered on 11/02/18 09:05; Admin Dose 11.25 MLS/HR; Start 11/01/18 at 13:30 IV Flush (NS 10 ml) 10 ml PRN PRN IV IV PROTOCOL; Start 11/01/18 at 16:30 Collagenase (Santyl) 1 applic DAILY TOP Last administered on 11/15/18 08:59; Admin Dose 1 APPLIC; Start 11/01/18 at 19:30 Norepinephrine 32 mg/Dextrose 250 ml @ 0.47 mls/hr TITRATE IV Last ad ministered on 11/02/18 12:15; Admin Dose 0.47 MLS/HR; Start 11/02/18 at 11:30 Midodrine (Proamatine) 5 mg TID@,,17 GTB Last administered on 11/08/18 12:53; Admin Dose 5 MG; Start 11/03/18 at 09:00; Status Hold Guaifenesin (Robitussin Liquid Cup) 100 mg Q4H PRN PO COUGH Last administered on 11/13/18 17:58; Admin Dose 100 MG; Start 11/03/18 at 12:00 Calcitriol (Rocaltrol) 1.5 mcg BID PO Last administered on 11/15/18 08:58; Admin Dose 1.5 MCG; Start 11/07/18 at 21:00 Lorazepam (Ativan) 1 mg Q4 GTB Last administered on 11/15/18 16:57; Admin Dose 1 MG; Start 11/09/18 at 14:00 Carvedilol (Coreg) 6.25 mg BID PO Last administered on 11/15/18 08:58; Admin Dose 6.25 MG; Start 11/09/18 at 21:00 Benazepril HCl (Lotensin) 10 mg DAILY PO Last administered on 11/15/18 08:58; Admin Dose 10 MG; Start 11/10/18 at 09:00 Digoxin (Digoxin) 0.25 mg DAILY@13 PO Last administered on 11/15/18 13:38; Admin Dose 0.25 MG; Start 11/11/18 at 13:00 Furosemide (Lasix) 20 mg DAILY IV Last administered on 11/15/18 08:58; Admin Dose 20 MG; Start 11/10/18 at 12:30 Hydromorphone HCl (Dilaudid) 3 mg Q4H PRN PO MODERATE PAIN LEVEL 7-10 Last administered on 11/13/18 17:59; Admin Dose 3 MG; Start 11/10/18 at 22:00 Cefepime HCl 50 ml @ 100 mls/hr Q12 IVPB Last administered on 11/15/18 08:59; Admin Dose 100 MLS/HR; Start 11/10/18 at 23:30 Fentanyl 100 ml @ 2.5 mls/hr TITRATE IV Last administered on 11/14/18 10:24; Admin Dose 2.5 MLS/HR; Start 11/14/18 at 09:00 Ascorbic Acid (Vitamin C) 250 mg DAILY GTB Last administered on 11/15/18at 09:10; Admin Dose 250 MG; Start 11/15/18 at 09:00; Stop 11/29/18 at 09:00 Zinc Sulfate (Zinc Sulfate) 220 mg DAILY GTB Last administered on 11/15/18at 09:10; Admin Dose 220 MG; Start 11/15/18 at 09:00; Stop 11/29/18 at 09:00 Miscellaneous Information (*Order Clarification Bulletin) MEDICATION REQUIRES CLARIFICATI... Q8H XX ; Start 11/15/18 at 12:00 Hydrocortisone (Cortef) 15 mg HS PEG ; Start 11/15/18 at 21:00 Hydrocortisone (Cortef) 15 mg QAM PEG ; Start 11/16/18 at 09:00 Hydrocortisone (Cortef) 15 mg AC DINNER PEG Last administered on 11/15/18at 16:57; Admin Dose 15 MG; Start 11/15/18 at 17:05 RENATO GAMBOA Nov 15, 2018 18:21
[2018-11-15] MEDS: FENTAnyl (DRIP) 1000 mcg/100mL 100 ML IV SCH (18:54)
[2018-11-16] VITALS (33 sets, daily range): BP systolic 88–144; BP diastolic 53–92; PULSE 101–117; RESP 20–46
[2018-11-16] MEDS: GABAPENTIN (50 MG/ML PO SYG) GTB SCH ×4 (00:37→20:15)
[2018-11-16] MEDS: LORAZEPAM 1 MG TAB GTB SCH ×6 (00:38→20:15)
[2018-11-16] MEDS: HYDROmorphONE 2 MG TAB PO PRN (00:38)
[2018-11-16] MEDS: IPRATROPIUM (HFA) 12.9 GM INHALER INH SCH ×4 (01:11→19:19)
[2018-11-16] MEDS: ALBUTEROL HFA 8 GM INHALER INH SCH ×4 (01:17→19:19)
[2018-11-16] MEDS: INSULIN ASPART [NOVOLOG] 3 ML PEN SC SCH ×4 (02:00→20:00)
[2018-11-16] MEDS: ACCU-CHEK XX SCH (02:00)
[2018-11-16] MEDS: LANSOPRAZOLE 30 MG CAP GTB SCH ×2 (05:37→17:10)
--- NOTE | 2018-11-16 07:24 | CONS ---
Assessment/Plan Assessment/Plan Assessment/Plan (Daily) Spoke patient this morning who is agreed to just comfort measures. He is completely cognizant and able to make the decisions on his own in spite of the fact he is on continuous pain control medications and intermittent sedation His responses are appropriate.. Nursing staff was in attendance when I spoke to patient. Subsequently I made a phone call to his and explained that patient has decided to withdraw aggressive support. She was speak to her children and contact me this morning soon. Consultation Date/Type/Reason Admit Date/Time Oct 09, 2018 at 12:16 Date/Time of Note DATE: 11/16/18 TIME: 07:23 Hx of Present Illness Preliminary note. I spoken with patient's spouse this morning and she agrees that patient should be on comfort measures. But she states it is entirely his decision and he is awake and alert enough to make decisions on his own behalf. She has given me permission to speak with him today about withdrawing full care. Past Medical History Medical History: diabetes, hypertension, renal disease, other (COPD, RA, spinal stenosis, neuropathy, cervical myelopathy with cervical radiculopathy, chronic pain syndrome, tracheobronchitis, fibromyalgia, MAC infection, anemia, chronic steroid therapy) Medications Current Medications Acetaminophen (Tylenol Liquid) 650 mg Q4H PRN GTB MILD PAIN(1-3)OR ELEVATED T EMP Last administered on 11/14/18at 16:44; Admin Dose 650 MG; Start 10/09/18 at 14:00 Al Hydrox/Mg Hydrox/Simethicone (Mag-Al Plus) 15 ml Q6H PRN PO GASTROINTESTINAL UPSET Last administered on 10/17/18at 13:18; Admin Dose 15 ML; Start 10/09/18 at 14:00 Eye Lubricant (Artificial Tears Oph) 1 drop Q6H PRN BOTH EYES DRY EYES Last administered on 11/03/18at 09:33; Admin Dose 1 DROP; Start 10/09/18 at 14:00 Bisacodyl (Dulcolax Supp) 10 mg DAILY PRN [place] CONSTIPATION; Start 10/09/18 at 14:00 Clonidine (Catapres) 0.1 mg DAILY PRN GTB ELEVATED BLOOD PRESSURE; Start 10/09/18 at 14:00 Diltiazem HCl (Cardizem Iv) 5 mg Q4 PRN IV ELEVATED HEART RATE Last administered on 11/06/18 18:47; Admin Dose 5 MG; Start 10/09/18 at 14:00 Diphenhydramine HCl (Benadryl Liquid Cup) 25 mg Q6 PRN GTB ITCHING Last admin istered on 10/22/18 20:25; Admin Dose 25 MG; Start 10/09/18 at 14:00 Duloxetine HCl (Cymbalta) 30 mg DAILY PO Last administered on 11/15/18 08:58; Admin Dose 30 MG; Start 10/10/18 at 09:00 Gabapentin (Neurontin Liquid) 400 mg Q8 GTB Last administered on 11/16/18 05:37; Admin Dose 400 MG; Start 10/09/18 at 15:30 Hydralazine HCl (Apresoline) 10 mg Q4H PRN IV ELEVATED BLOOD PRESSURE; Start 10/09/18 at 14:00 Hydroxychloroquine Sulfate (Plaquenil) 200 mg BID PO Last administered on 11/15/18 20:42; Admin Dose 200 MG; Start 10/09/18 at 21:00 Diagnostic Test (Pha) (Accu-Chek) 1 ea 02 XX Last administered on 11/15/18 01:23; Admin Dose 1 EA; Start 10/10/18 at 02:00 Insulin Aspart (Novolog Insulin Pen) NOVOLOG *CUSTOM* ALGORITHM Q6H SC Last administered on 11/15/18 21:03; Admin Dose 1 UNIT; Start 10/09/18 at 14:00 Lactobacillus Acidophilus (Florajen3 Capsule) 1 each BID GTB Last administered on 11/15/18 20:42; Admin Dose 1 EACH; Start 10/09/18 at 21:00 Lansoprazole (Prevacid) 30 mg BID@,18 GTB Last administered on 11/16/18 05:37; Admin Dose 30 MG; Start 10/09/18 at 18:00 Levetiracetam (Keppra Liquid) 500 mg BID GTB Last administered on 11/15/18 20:42; Admin Dose 500 MG; Start 10/09/18 at 21:00 Magnesium Oxide (Mag-Ox 400) 400 mg BID GTB Last administered on 11/15/18 20:41; Admin Dose 400 MG; Start 10/09/18 at 21:00 Metoclopramide HCl (Reglan) 10 mg TID IV Last administered on 11/15/18at 20:42; Admin Dose 10 MG; Start 10/09/18 at 21:00 Miconazole Nitrate (Miconazole 2% Cr) 1 applic BID TOP Last administered on 11/15/18at 20:44; Admin Dose 1 APPLIC; Start 10/09/18 at 21:00 Miconazole Nitrate (Miconazole 2% Cr) 1 applic Q12 PRN TOP rash; Start 10/09/18 at 14:00 Ondansetron HCl (Zofran Inj) 4 mg Q4H PRN IV NAUSEA AND/OR VOMITING Last administered on 10/19/18at 16:37; Admin Dose 4 MG; Start 10/09/18 at 14:00 Polyethylene Glycol (Miralax) 17 gm DAILY PRN GTB CONSTIPATION; Start 10/09/18 at 14:00 Senna (Senokot) 2 tab Q8 PRN PO CONSTIPATION; Start 10/09/18 at 14:00 Trimethoprim/ Sulfamethoxazole (Bactrim Susp) 40 ml DAILY GTB Last administered on 11/15/18at 09:10; Admin Dose 40 ML; Start 10/10/18 at 09:00 Zolpidem Tartrate (Ambien) 5 mg HS PRN PO INSOMNIA Last administered on 11/03/18at 01:16; Admin Dose 5 MG; Start 10/09/18 at 14:00 Miscellaneous Information 1 ea NOTE XX ; Start 10/09/18 at 15:00 Glucose (Glutose) 15 gm Q15M PRN PO DECREASED GLUCOSE; Start 10/09/18 at 15:00 Glucose (Glutose) 22.5 gm Q15M PRN PO DECREASED GLUCOSE; Start 10/09/18 at 15:00 Dextrose (D50w Syringe) 25 ml Q15M PRN IV DECREASED GLUCOSE; Start 10/09/18 at 15:00 Dextrose (D50w Syringe) 50 ml Q15M PRN IV DECREASED GLUCOSE; Start 10/09/18 at 15:00 Glucagon (Glucagen) 1 mg Q15M PRN IM DECREASED GLUCOSE; Start 10/09/18 at 15:00 Glucose (Glutose) 15 gm Q15M PRN BUCCAL DECREASED GLUCOSE; Start 10/09/18 at 15:00 Albuterol (Ventolin Hfa) 4 puff Q6H RESP THERAPY INH Last administered on 11/16/18 01:17; Admin Dose 4 PUFF; Start 10/10/18 at 02:00 Ipratropium Lorton (Atrovent Hfa) 4 puff Q6H RESP THERAPY INH Last administered on 11/16/18 01:11; Admin Dose 4 PUFF; Start 10/10/18 at 02:00 Linagliptin (Tradjenta) 5 mg DAILY PO Last administered on 11/15/18 08:57; Admin Dose 5 MG; Start 10/16/18 at 10:30 Quetiapine Fumarate (Seroquel) 100 mg BID GTB Last administered on 11/15/18 20:41; Admin Dose 100 MG; Start 10/21/18 at 21:00 Calcium Carbonate (Ca Carbonate) 1,250 mg QID GTB Last administered on 11/15/18 20:42; Admin Dose 1,250 MG; Start 10/24/18 at 13:00 Metoprolol Tartrate (Lopressor) 5 mg Q4H PRN IV HR>110 Hold SBP<100 Last administered on 11/11/18 18:31; Admin Dose 5 MG; Start 10/28/18 at 12:30 Phenylephrine HCl 40 mg/Dextrose 250 ml @ 37.5 mls/hr TITRATE IV Last administered on 11/02/18 09:05; Admin Dose 11.25 MLS/HR; Start 11/01/18 at 13:30 IV Flush (NS 10 ml) 10 ml PRN PRN IV IV PROTOCOL; Start 11/01/18 at 16:30 Collagenase (Santyl) 1 applic DAILY TOP Last administered on 11/15/18 08:59; Admin Dose 1 APPLIC; Start 11/01/18 at 19:30 Norepinephrine 32 mg/Dextrose 250 ml @ 0.47 mls/hr TITRATE IV Last administered on 11/02/18 12:15; Admin Dose 0.47 MLS/HR; Start 11/02/18 at 11:30 Midodrine (Proamatine) 5 mg TID@,,17 GTB Last administered on 11/08/18 12:53; Admin Dose 5 MG; Start 11/03/18 at 09:00; Status Hold Guaifenesin (Robitussin Liquid Cup) 100 mg Q4H PRN PO COUGH Last administered on 11/13/18 17:58; Admin Dose 100 MG; Start 11/03/18 at 12:00 Calcitriol (Rocaltrol) 1.5 mcg BID PO Last administered on 11/15/18 20:41; Admin Dose 1.5 MCG; Start 11/07/18 at 21:00 Lorazepam (Ativan) 1 mg Q4 GTB Last administered on 11/16/18 05:36; Admin Dose 1 MG; Start 11/09/18 at 14:00 Carvedilol (Coreg) 6.25 mg BID PO Last administered on 11/15/18 20:50; Admin Dose 6.25 MG; Start 11/09/18 at 21:00 Benazepril HCl (Lotensin) 10 mg DAILY PO Last administered on 11/15/18 08:58; Admin Dose 10 MG; Start 11/10/18 at 09:00 Digoxin (Digoxin) 0.25 mg DAILY@13 PO Last administered on 11/15/18 13:38; Admin Dose 0.25 MG; Start 11/11/18 at 13:00 Furosemide (Lasix) 20 mg DAILY IV Last administered on 11/15/18 08:58; Admin Dose 20 MG; Start 11/10/18 at 12:30 Hydromorphone HCl (Dilaudid) 3 mg Q4H PRN PO MODERATE PAIN LEVEL 7-10 Last administered on 11/16/18 00:38; Admin Dose 3 MG; Start 11/10/18 at 22:00 Cefepime HCl 50 ml @ 100 mls/hr Q12 IVPB Last administered on 11/15/18 20:42; Admin Dose 100 MLS/HR; Start 11/10/18 at 23:30 Fentanyl 100 ml @ 2.5 mls/hr TITRATE IV Last administered on 11/15/18 18:54; Admin Dose 2.5 MLS/HR; Start 11/14/18 at 09:00 Ascorbic Acid (Vitamin C) 250 mg DAILY GTB Last administered on 11/15/18 09:10; Admin Dose 250 MG; Start 11/15/18 at 09:00; Stop 11/29/18 at 09:00 Zinc Sulfate (Zinc Sulfate) 220 mg DAILY GTB Last administered on 11/15/18 09:10; Admin Dose 220 MG; Start 11/15/18 at 09:00; Stop 11/29/18 at 09:00 Miscellaneous Information (*Order Clarification Bulletin) MEDICATION REQUIRES CLARIFICATI... Q8H XX ; Start 11/15/18 at 12:00 Hydrocortisone (Cortef) 15 mg HS PEG Last administered on 11/15/18at 20:41; Admin Dose 15 MG; Start 11/15/18 at 21:00 Hydrocortisone (Cortef) 15 mg QAM PEG ; Start 11/16/18 at 09:00 Hydrocortisone (Cortef) 15 mg AC DINNER PEG Last administered on 11/15/18at 16 :57; Admin Dose 15 MG; Start 11/15/18 at 17:05 Allergies: Coded Allergies: No Known Allergy (Unverified , 11/03/18) Past Surgical History Past Surgical Hx: other Social History Alcohol Use: none Smoking Status: Never smoker Drug Use: none Exam/Review of Systems Exam Vitals Vital Signs Date Temp Pulse Resp B/P (MAP) Pulse Ox O2 O2 Flow FiO2 Time Delivery Rate 11/16/18 110 33 95 85 06:06 11/16/18 121/74 Mechanical 06:00 (90) Ventilator 11/16/18 98.9 04:00 Intake and Output 11/15/18 11/15/18 11/16/18 1515:00 23:00 07:00 IntakeIntake Total 430.0 ml 432.0 ml 382.5 ml OutputOutput Total 1150 ml 425 ml 300 ml BalanceBalance -720.0 ml 7.0 ml 82.5 ml Results Result Diagram: 11/16/18 0330 11/16/18 0330 Results 24hrs Laboratory Tests Test 11/15/18 07:27 11/15/18 13:41 11/15/18 14:30 11/15/18 14:55 Bedside Glucose 121 145 Urine Color YELLOW Urine Clarity SLIGHTLY CLOUDY A Urine pH 7.0 Urine Specific 1.013 Wall Urine Ketones NEGATIVE Urine Nitrite NEGATIVE Urine Bilirubin NEGATIVE Urine Urobilinogen NEGATIVE Urine Leukocyte NEGATIVE Esterase Urine Microscopic 11 H RBC Urine Microscopic 7 H WBC Urine Bacteria FEW A Urine Mucus FEW A Urine Hemoglobin NEGATIVE Urine Glucose NEGATIVE Urine Total NEGATIVE Protein Lactic Acid Level 1.5 Test 11/15/18 20:53 11/16/18 03:29 11/16/18 03:30 Bedside Glucose 161 136 White Blood Count 14.1 H Red Blood Count 2.58 L Hemoglobin 7.2 L Hematocrit 25.2 L Mean Corpuscular 97.7 Volume Mean Corpuscular 27.9 L Hemoglobin Mean Corpuscular 28.6 L Hemoglobin Concent Red Cell 16.1 H Distribution Width Platelet Count 418 H Mean Platelet 10.9 H Volume Immature 2.200 H Granulocytes % Neutrophils % 72.6 Lymphocytes % 5.4 L Monocytes % 9.1 Eosinophils % 10.0 H Basophils % 0.7 Nucleated Red 0.0 Blood Cells % Immature 0.310 H Granulocytes # Neutrophils # 10.2 H Lymphocytes # 0.8 Monocytes # 1.3 H Eosinophils # 1.4 H Basophils # 0.1 Nucleated Red 0.0 Blood Cells # Sodium Level 142 Potassium Level 3.5 Chloride Level 90 L Carbon Dioxide 50 *H Level Anion Gap 2 L Blood Urea 32 H Nitrogen Creatinine 0.38 L Est Glomerular > 60 Filtrat Rate mL/min Glucose Level 139 Calcium Level 7.8 L Phosphorus Level 3.6 Magnesium Level 2.1 Medications Medication Current Medications Acetaminophen (Tylenol Liquid) 650 mg Q4H PRN GTB MILD PAIN(1-3)OR ELEVATED TEMP Last administered on 11/14/18 16:44; Admin Dose 650 MG; Start 10/09/18 at 14:00 Al Hydrox/Mg Hydrox/Simethicone (Mag-Al Plus) 15 ml Q6H PRN PO GASTROINTESTINAL UPSET Last administered on 10/17/18 13:18; Admin Dose 15 ML; Start 10/09/18 at 14:00 Eye Lubricant (Artificial Tears Oph) 1 drop Q6H PRN BOTH EYES DRY EYES Last administered on 11/03/18at 09:33; Admin Dose 1 DROP; Start 10/09/18 at 14:00 Bisacodyl (Dulcolax Supp) 10 mg DAILY PRN [place] CONSTIPATION; Start 10/09/18 at 14:00 Clonidine (Catapres) 0.1 mg DAILY PRN GTB ELEVATED BLOOD PRESSURE; Start 10/09/18 at 14:00 Diltiazem HCl (Cardizem Iv) 5 mg Q4 PRN IV ELEVATED HEART RATE Last administered on 11/06/18at 18:47; Admin Dose 5 MG; Start 10/09/18 at 14:00 Diphenhydramine HCl (Benadryl Liquid Cup) 25 mg Q6 PRN GTB ITCHING Last administered on 10/22/18 20:25; Admin Dose 25 MG; Start 10/09/18 at 14:00 Duloxetine HCl (Cymbalta) 30 mg DAILY PO Last administered on 11/15/18 08:58; Admin Dose 30 MG; Start 10/10/18 at 09:00 Gabapentin (Neurontin Liquid) 400 mg Q8 GTB Last administered on 11/16/18 05:37; Admin Dose 400 MG; Start 10/09/18 at 15:30 Hydralazine HCl (Apresoline) 10 mg Q4H PRN IV ELEVATED BLOOD PRESSURE; Start 10/09/18 at 14:00 Hydroxychloroquine Sulfate (Plaquenil) 200 mg BID PO Last administered on 20:42; Admin Dose 200 MG; Start 10/09/18 at 21:00 Diagnostic Test (Pha) (Accu-Chek) 1 ea 02 XX Last administered on 11/15/18 01:23; Admin Dose 1 EA; Start 10/10/18 at 02:00 Insulin Aspart (Novolog Insulin Pen) NOVOLOG *CUSTOM* ALGORITHM Q6H SC Last administered on 11/15/18 21:03; Admin Dose 1 UNIT; Start 10/09/18 at 14:00 Lactobacillus Acidophilus (Florajen3 Capsule) 1 each BID GTB Last administered on 11/15/18 20:42; Admin Dose 1 EACH; Start 10/09/18 at 21:00 Lansoprazole (Prevacid) 30 mg BID@06,18 GTB Last administered on 11/16/18 05:37; Admin Dose 30 MG; Start 10/09/18 at 18:00 Levetiracetam (Keppra Liquid) 500 mg BID GTB Last administered on 11/15/18 20:42; Admin Dose 500 MG; Start 10/09/18 at 21:00 Magnesium Oxide (Mag-Ox 400) 400 mg BID GTB Last administered on 11/15/18 20 :41; Admin Dose 400 MG; Start 10/09/18 at 21:00 Metoclopramide HCl (Reglan) 10 mg TID IV Last administered on 11/15/18 20:42; Admin Dose 10 MG; Start 10/09/18 at 21:00 Miconazole Nitrate (Miconazole 2% Cr) 1 applic BID TOP Last administered on 11/15/18at 20:44; Admin Dose 1 APPLIC; Start 10/09/18 at 21:00 Miconazole Nitrate (Miconazole 2% Cr) 1 applic Q12 PRN TOP rash; Start 10/09/18 at 14:00 Ondansetron HCl (Zofran Inj) 4 mg Q4H PRN IV NAUSEA AND/OR VOMITING Last administered on 10/19/18at 16:37; Admin Dose 4 MG; Start 10/09/18 at 14:00 Polyethylene Glycol (Miralax) 17 gm DAILY PRN GTB CONSTIPATION; Start 10/09/18 at 14:00 Senna (Senokot) 2 tab Q8 PRN PO CONSTIPATION; Start 10/09/18 at 14:00 Trimethoprim/ Sulfamethoxazole (Bactrim Susp) 40 ml DAILY GTB Last administered on 11/15/18 09:10; Admin Dose 40 ML; Start 10/10/18 at 09:00 Zolpidem Tartrate (Ambien) 5 mg HS PRN PO INSOMNIA Last administered on 11/03/18at 01:16; Admin Dose 5 MG; Start 10/09/18 at 14:00 Miscellaneous Information 1 ea NOTE XX ; Start 10/09/18 at 15:00 Glucose (Glutose) 15 gm Q15M PRN PO DECREASED GLUCOSE; Start 10/09/18 at 15:00 Glucose (Glutose) 22.5 gm Q15M PRN PO DECREASED GLUCOSE; Start 10/09/18 at 15 :00 Dextrose (D50w Syringe) 25 ml Q15M PRN IV DECREASED GLUCOSE; Start 10/09/18 at 15:00 Dextrose (D50w Syringe) 50 ml Q15M PRN IV DECREASED GLUCOSE; Start 10/09/18 at 15:00 Glucagon (Glucagen) 1 mg Q15M PRN IM DECREASED GLUCOSE; Start 10/09/18 at 15:00 Glucose (Glutose) 15 gm Q15M PRN BUCCAL DECREASED GLUCOSE; Start 10/09/18 at 15:00 Albuterol (Ventolin Hfa) 4 puff Q6H RESP THERAPY INH Last administered on 11/16/18at 01:17; Admin Dose 4 PUFF; Start 10/10/18 at 02:00 Ipratropium Lorton (Atrovent Hfa) 4 puff Q6H RESP THERAPY INH Last administered on 11/16/18 01:11; Admin Dose 4 PUFF; Start 10/10/18 at 02:00 Linagliptin (Tradjenta) 5 mg DAILY PO Last administered on 11/15/18 08:57; Adm in Dose 5 MG; Start 10/16/18 at 10:30 Quetiapine Fumarate (Seroquel) 100 mg BID GTB Last administered on 11/15/18 20:41; Admin Dose 100 MG; Start 10/21/18 at 21:00 Calcium Carbonate (Ca Carbonate) 1,250 mg QID GTB Last administered on 11/15/18 20:42; Admin Dose 1,250 MG; Start 10/24/18 at 13:00 Metoprolol Tartrate (Lopressor) 5 mg Q4H PRN IV HR>110 Hold SBP<100 Last administered on 11/11/18 18:31; Admin Dose 5 MG; Start 10/28/18 at 12:30 Phenylephrine HCl 40 mg/Dextrose 250 ml @ 37.5 mls/hr TITRATE IV Last administered on 11/02/18 09:05; Admin Dose 11.25 MLS/HR; Start 11/01/18 at 13:30 IV Flush (NS 10 ml) 10 ml PRN PRN IV IV PROTOCOL; Start 11/01/18 at 16:30 Collagenase (Santyl) 1 applic DAILY TOP Last administered on 11/15/18 08:59; Admin Dose 1 APPLIC; Start 11/01/18 at 19:30 Norepinephrine 32 mg/Dextrose 250 ml @ 0.47 mls/hr TITRATE IV Last administered on 11/02/18 12:15; Admin Dose 0.47 MLS/HR; Start 11/02/18 at 11:30 Midodrine (Proamatine) 5 mg TID@,13,17 GTB Last administered on 11/08/18 12:53; Admin Dose 5 MG; Start 11/03/18 at 09:00; Status Hold Guaifenesin (Robitussin Liquid Cup) 100 mg Q4H PRN PO COUGH Last administered on 11/13/18 17:58; Admin Dose 100 MG; Start 11/03/18 at 12:00 Calcitriol (Rocaltrol) 1.5 mcg BID PO Last administered on 11/15/18 20:41; Admin Dose 1.5 MCG; Start 11/07/18 at 21:00 Lorazepam (Ativan) 1 mg Q4 GTB Last administered on 11/16/18 05:36; Admin Dose 1 MG; Start 11/09/18 at 14:00 Carvedilol (Coreg) 6.25 mg BID PO Last administered on 11/15/18 20:50; Admin Dose 6.25 MG; Start 11/09/18 at 21:00 Benazepril HCl (Lotensin) 10 mg DAILY PO Last administered on 11/15/18 08:58; Admin Dose 10 MG; Start 11/10/18 at 09:00 Digoxin (Digoxin) 0.25 mg DAILY@13 PO Last administered on 11/15/18 13:38; Admin Dose 0.25 MG; Start 11/11/18 at 13:00 Furosemide (Lasix) 20 mg DAILY IV Last administered on 11/15/18 08:58; Admin Dose 20 MG; Start 11/10/18 at 12:30 Hydromorphone HCl (Dilaudid) 3 mg Q4H PRN PO MODERATE PAIN LEVEL 7-10 Last administered on 11/16/18 00:38; Admin Dose 3 MG; Start 11/10/18 at 22:00 Cefepime HCl 50 ml @ 100 mls/hr Q12 IVPB Last administered on 11/15/18 20:42; Admin Dose 100 MLS/HR; Start 11/10/18 at 23:30 Fentanyl 100 ml @ 2.5 mls/hr TITRATE IV Last administered on 11/15/18 18:54; Admin Dose 2.5 MLS/HR; Start 11/14/18 at 09:00 Ascorbic Acid (Vitamin C) 250 mg DAILY GTB Last administered on 11/15/18 09:10; Admin Dose 250 MG; Start 11/15/18 at 09:00; Stop 11/29/18 at 09:00 Zinc Sulfate (Zinc Sulfate) 220 mg DAILY GTB Last administered on 11/15/18 09:10; Admin Dose 220 MG; Start 11/15/18 at 09:00; Stop 11/29/18 at 09:00 Miscellaneous Information (*Order Clarification Bulletin) MEDICATION REQUIRES CLARIFICATI... Q8H XX ; Start 11/15/18 at 12:00 Hydrocortisone (Cortef) 15 mg HS PEG Last administered on 11/15/18at 20:41; Admin Dose 15 MG; Start 11/15/18 at 21:00 Hydrocortisone (Cortef) 15 mg QAM PEG ; Start 11/16/18 at 09:00 Hydrocortisone (Cortef) 15 mg AC DINNER PEG Last administered on 11/15/18at 16:57; Admin Dose 15 MG; Start 11/15/18 at 17:05 RENATO GAMBOA Nov 16, 2018 07:24
[2018-11-16] MEDS: LEVETIRACETAM (100 MG/ML) 5ML CUP GTB SCH ×2 (08:22→20:15)
[2018-11-16] MEDS: CA CARBONATE (250 MG/ML) 5ML CUP GTB SCH ×4 (08:22→20:15)
[2018-11-16] MEDS: COLLAGENASE 5 GM (UD JAR) TOP SCH (08:22)
[2018-11-16] MEDS: METOCLOPRAMIDE 10 MG INJ IV SCH ×3 (08:22→20:16)
[2018-11-16] MEDS: ZINC SULFATE 220 MG CAP GTB SCH (08:23)
--- NOTE | 2018-11-16 08:23 | PN ---
DATE: 11/16/2018 SUBJECTIVE: The patient is stable, no events overnight. No fevers, chills, nausea, or vomiting. OBJECTIVE: VITAL SIGNS: Blood pressure is 121/74, respirations 31, pulse 109, temperature 98.9. HEENT: Head is normocephalic. NECK: Supple. HEART: Regular rate. LUNGS: Show diminished breath sounds at the base. ABDOMEN: Soft, nontender to palpation without rebound or guarding. EXTREMITIES: Negative for clubbing, cyanosis, positive edema. DERMATOLOGIC: No rashes. MUSCULOSKELETAL: No joint effusion. NEUROLOGIC: No change in exam. MEDICATIONS: The patient's medications have been reviewed. LABORATORY DATA: Reviewed. The patient's ABG was reviewed. ASSESSMENT AND PLAN: 1. Nonoliguric acute kidney injury with previously normal baseline creatinine. Etiology is secondar y to hemodynamics. Renal function is improved. Continue to monitor. 2. Mixed acid base disorder. The patient has a chronic respiratory acidosis and a metabolic alkalos is. Plan is to give the patient a course of Diamox. We will monitor electrolytes and renal function closely. 3. Volume overload. Continue diuretic therapy. 4. Ventilator dependent respiratory failure. Vent settings and ABG was reviewed. Continue to monit or. 5. Adrenal insufficiency. Continue Cortef. 6. Dysphagia, status post PEG. Continue tube feeding. 7. Hypertension. Continue current blood pressure regimen. 8. Seizure disorder. Continue medical management. 9. Hypomagnesemia. Continue to monitor and replete. 10. Mineral bone disorder. Monitor calcium and phosphorus levels. Continue vitamin D analogs. 11. Status post shock. 12. Anxiety disorder. Dictated By: UNA ROY DO NR/NTS Conf#: [id number] DID#: [id number] CC: CAMELIA VALENTINE MD; NOLA VIDAL MD;*EndCC*
[2018-11-16] MEDS: BENAZEPRIL 10 MG TAB PO SCH (08:24)
[2018-11-16] MEDS: DULOXETINE 30 MG CAP DR PO SCH (08:25)
[2018-11-16] MEDS: L ACIDOPHIL/B LACTIS/B LONGUM CAPSULE GTB SCH ×2 (08:25→20:15)
[2018-11-16] MEDS: ASCORBIC ACID 250 MG TAB GTB SCH (08:25)
[2018-11-16] MEDS: HYDROCORTISONE 5 MG TAB PEG SCH ×3 (08:26→20:16)
[2018-11-16] MEDS: CALCITRIOL 0.5 MCG CAPSULE PO SCH ×2 (08:26→20:16)
[2018-11-16] MEDS: QUETIAPINE 100 MG TAB GTB SCH ×2 (08:26→20:17)
[2018-11-16] MEDS: CEFEPIME 1GM/50 ML (PMX) 50 ML IVPB SCH ×2 (08:27→20:22)
[2018-11-16] MEDS: TRIMETHOPRIM/SULFAMETHOX (PO SYG) GTB SCH (08:29)
[2018-11-16] MEDS: LINAGLIPTIN 5 MG TABLET PO SCH (08:29)
[2018-11-16] MEDS: BALSAM PERU/CASTOR OIL 60 GM TUBE TOP SCH ×2 (08:29→20:18)
[2018-11-16] MEDS ORDERED: POTASSIUM CHLORIDE 20 MEQ POWDER FOR ORAL SOLN GTB ONE (08:30)
[2018-11-16] MEDS: MICONAZOLE 2% 30 GM CR TOP SCH ×2 (08:30→20:18)
[2018-11-16] MEDS: MAGNESIUM OXIDE 400 MG TAB GTB SCH ×2 (08:37→20:17)
--- NOTE | 2018-11-16 09:16 | CONS ---
Assessment/Plan Assessment/Plan Assessment/Plan (Daily) Ventilator setting; AC of 20, pressure control, PEEP of 8, 85% FiO2. Fentanyl drip at 25 mics per hour. Assessment and recommendations; 1. Patient with history of VDR F and ARDS as well as incomplete quadriplegia admitted for progressive hypoxemia with significant downhill course clinically. 2. Other comorbidities include history of HSV esophagitis, anxiety and depression, hypertension, anemia. Patient has been switched over to comfort care. Prognosis is extremely poor. Consultation Date/Type/Reason Admit Date/Time Oct 09, 2018 at 12:16 Initial Consult Date 10/12/18 Type of Consult Pulmonary/critical care Patient's condition is stable. Remains completely awake and alert. Has remained hemodynamically stable. Patient also has been switched over to volume control ventilation from pressure-controlled mode. General exam; middle-aged male, on ventilator via tracheostomy, awake and alert. Watching television. Currently in no distress. Area Requesting Provider: NOLA VIDAL MD Date/Time of Note DATE: 11/16/18 TIME: 09:12 24 HR Interval Summary Free Text/Dictation Patient is getting progressively sicker. General exam; middle-aged male, on ventilator via tracheostomy, awake and alert. Currently in no distress. Appearing tachypneic. Exam/Review of Systems Exam Vitals Vital Signs Date Temp Pulse Resp B/P (MAP) Pulse Ox O2 O2 Flow FiO2 Time Delivery Rate 11/16/18 110 33 95 85 06:06 11/16/18 121/74 Mechanical 06:00 (90) Ventilator 11/16/18 98.9 04:00 Intake and Output 11/15/18 11/15/18 11/16/18 1515:00 23:00 07:00 IntakeIntake Total 430.0 ml 432.0 ml 382.5 ml OutputOutput Total 1150 ml 425 ml 300 ml BalanceBalance -720.0 ml 7.0 ml 82.5 ml Exam H EENT exam; supple neck, no JVD. No lymphadenopathy. Midline trachea. No thyromegaly. Edentulous. Tracheostomy in place. Chest exam; bilateral crackles. S1-S2 audible, no murmurs. Regular rhythm. Abdomen exam; soft, nontender. No organomegaly. G-tube in place. Bowel sounds audible. Extremity exam; no peripheral edema. [employer]TER exam; patient has stable incomplete quadriplegia. Results Result Diagram: 11/16/18 0330 11/16/18 0330 Results 24hrs Laboratory Tests Test 11/15/18 13:41 11/15/18 14:30 11/15/18 14:55 11/15/18 20:53 Bedside Glucose 145 161 Urine Color YELLOW Urine Clarity SLIGHTLY CLOUDY A Urine pH 7.0 Urine Specific 1.013 [place] Urine Ketones NEGATIVE Urine Nitrite NEGATIVE Urine Bilirubin NEGATIVE Urine Urobilinogen NEGATIVE Urine Leukocyte NEGATIVE Esterase Urine Microscopic 11 H RBC Urine Microscopic 7 H WBC Urine Bacteria FEW A Urine Mucus FEW A Urine Hemoglobin NEGATIVE Urine Glucose NEGATIVE Urine Total NEGATIVE Protein Lactic Acid Level 1.5 Test 11/16/18 03:29 11/16/18 03:30 11/16/18 08:28 Bedside Glucose 136 122 White Blood Count 14.1 H Red Blood Count 2.58 L Hemoglobin 7.2 L Hematocrit 25.2 L Mean Corpuscular 97.7 Volume Mean Corpuscular 27.9 L Hemoglobin Mean Corpuscular 28.6 L Hemoglobin Concent Red Cell 16.1 H Distribution Width Platelet Count 418 H Mean Platelet 10.9 H Volume Immature 2.200 H Granulocytes % Neutrophils % 72.6 Lymphocytes % 5.4 L Monocytes % 9.1 Eosinophils % 10.0 H Basophils % 0.7 Nucleated Red 0.0 Blood Cells % Immature 0.310 H Granulocytes # Neutrophils # 10.2 H Lymphocytes # 0.8 Monocytes # 1.3 H Eosinophils # 1.4 H Basophils # 0.1 Nucleated Red 0.0 Blood Cells # Sodium Level 142 Potassium Level 3.5 Chloride Level 90 L Carbon Dioxide 50 *H Level Anion Gap 2 L Blood Urea 32 H Nitrogen Creatinine 0.38 L Est Glomerular > 60 Filtrat Rate mL/min Glucose Level 139 Calcium Level 7.8 L Phosphorus Level 3.6 Magnesium Level 2.1 Medications Medication Current Medications Acetaminophen (Tylenol Liquid) 650 mg Q4H PRN GTB MILD PAIN(1-3)OR ELEVATED TEMP Last administered on 11/14/18at 16:44; Admin Dose 650 MG; Start 10/09/18 at 14:00 Al Hydrox/Mg Hydrox/Simethicone (Mag-Al Plus) 15 ml Q6H PRN PO GASTROINTESTINAL UPSET Last administered on 10/17/18at 13:18; Admin Dose 15 ML; Start 10/09/18 at 1 4:00 Eye Lubricant (Artificial Tears Oph) 1 drop Q6H PRN BOTH EYES DRY EYES Last administered on 11/03/18 09:33; Admin Dose 1 DROP; Start 10/09/18 at 14:00 Bisacodyl (Dulcolax Supp) 10 mg DAILY PRN [place] CONSTIPATION; Start 10/09/18 at 14:00 Clonidine (Catapres) 0.1 mg DAILY PRN GTB ELEVATED BLOOD PRESSURE; Start 10/09/18 at 14:00 Diltiazem HCl (Cardizem Iv) 5 mg Q4 PRN IV ELEVATED HEART RATE Last administered on 11/06/18 18:47; Admin Dose 5 MG; Start 10/09/18 at 14:00 Diphenhydramine HCl (Benadryl Liquid Cup) 25 mg Q6 PRN GTB ITCHING Last administered on 10/22/18 20:25; Admin Dose 25 MG; Start 10/09/18 at 14:00 Duloxetine HCl (Cymbalta) 30 mg DAILY PO Last administered on 11/16/18 08:25; Admin Dose 30 MG; Start 10/10/18 at 09:00 Gabapentin (Neurontin Liquid) 400 mg Q8 GTB Last administered on 11/16/18 05:37; Admin Dose 400 MG; Start 10/09/18 at 15:30 Hydralazine HCl (Apresoline) 10 mg Q4H PRN IV ELEVATED BLOOD PRESSURE; Start 10/09/18 at 14:00 Hydroxychloroquine Sulfate (Plaquenil) 200 mg BID PO Last administered on 11/15/18 20:42; Admin Dose 200 MG; Start 10/09/18 at 21:00 Diagnostic Test (Pha) (Accu-Chek) 1 ea 02 XX Last administered on 11/15/18 01:23; Admin Dose 1 EA; Start 10/10/18 at 02:00 Insulin Aspart (Novolog Insulin Pen) NOVOLOG *CUSTOM* ALGORITHM Q6H SC Last administered on 11/15/18 21:03; Admin Dose 1 UNIT; Start 10/09/18 at 14:00 Lactobacillus Acidophilus (Florajen3 Capsule) 1 each BID GTB Last administered on 11/16/18 08:25; Admin Dose 1 EACH; Start 10/09/18 at 21:00 Lansoprazole (Prevacid) 30 mg BID@06,18 GTB Last administered on 11/16/18 05:37; Admin Dose 30 MG; Start 10/09/18 at 18:00 Levetiracetam (Keppra Liquid) 500 mg BID GTB Last administered on 11/16/18 08:22; Admin Dose 500 MG; Start 10/09/18 at 21:00 Magnesium Oxide (Mag-Ox 400) 400 mg BID GTB Last administered on 11/16/18 08:37; Admin Dose 400 MG; Start 10/09/18 at 21:00 Metoclopramide HCl (Reglan) 10 mg TID IV Last administered on 11/16/18 08:22; Admin Dose 10 MG; Start 10/09/18 at 21:00 Miconazole Nitrate (Miconazole 2% Cr) 1 applic BID TOP Last administered on 11/16/18 08:30; Admin Dose 1 APPLIC; Start 10/09/18 at 21:00 Miconazole Nitrate (Miconazole 2% Cr) 1 applic Q12 PRN TOP rash; Start 10/09/18 at 14:00 Ondansetron HCl (Zofran Inj) 4 mg Q4H PRN IV NAUSEA AND/OR VOMITING Last administered on 10/19/18 16:37; Admin Dose 4 MG; Start 10/09/18 at 14:00 Polyethylene Glycol (Miralax) 17 gm DAILY PRN GTB CONSTIPATION; Start 10/09/18 at 14:00 Senna (Senokot) 2 tab Q8 PRN PO CONSTIPATION; Start 10/09/18 at 14:00 Trimethoprim/ Sulfamethoxazole (Bactrim Susp) 40 ml DAILY GTB Last administered on 11/16/18 08:29; Admin Dose 40 ML; Start 10/10/18 at 09:00 Zolpidem Tartrate (Ambien) 5 mg HS PRN PO INSOMNIA Last administered on 11/03/18 01:16; Admin Dose 5 MG; Start 10/09/18 at 14:00 Miscellaneous Information 1 ea NOTE XX ; Start 10/09/18 at 15:00 Glucose (Glutose) 15 gm Q15M PRN PO DECREASED GLUCOSE; Start 10/09/18 at 15:00 Glucose (Glutose) 22.5 gm Q15M PRN PO DECREASED GLUCOSE; Start 10/09/18 at 15:00 Dextrose (D50w Syringe) 25 ml Q15M PRN IV DECREASED GLUCOSE; Start 10/09/18 at 15:00 Dextrose (D50w Syringe) 50 ml Q15M PRN IV DECREASED GLUCOSE; Start 10/09/18 at 15:00 Glucagon (Glucagen) 1 mg Q15M PRN IM DECREASED GLUCOSE; Start 10/09/18 at 15:00 Glucose (Glutose) 15 gm Q15M PRN BUCCAL DECREASED GLUCOSE; Start 10/09/18 at 15:00 Albuterol (Ventolin Hfa) 4 puff Q6H RESP THERAPY INH Last administered on 11/16/18 09:01; Admin Dose 4 PUFF; Start 10/10/18 at 02:00 Ipratropium [place] (Atrovent Hfa) 4 puff Q6H RESP THERAPY INH Last administe red on 11/16/18 09:01; Admin Dose 4 PUFF; Start 10/10/18 at 02:00 Linagliptin (Tradjenta) 5 mg DAILY PO Last administered on 11/16/18 08:29; Admin Dose 5 MG; Start 10/16/18 at 10:30 Quetiapine Fumarate (Seroquel) 100 mg BID GTB Last administered on 11/16/18 08:26; Admin Dose 100 MG; Start 10/21/18 at 21:00 Calcium Carbonate (Ca Carbonate) 1,250 mg QID GTB Last administered on 11/16/18 08:22; Admin Dose 1,250 MG; Start 10/24/18 at 13:00 Metoprolol Tartrate (Lopressor) 5 mg Q4H PRN IV HR>110 Hold SBP<100 Last administered on 11/11/18 18:31; Admin Dose 5 MG; Start 10/28/18 at 12:30 Phenylephrine HCl 40 mg/Dextrose 250 ml @ 37.5 mls/hr TITRATE IV Last administered on 11/02/18 09:05; Admin Dose 11.25 MLS/HR; Start 11/01/18 at 13:30 IV Flush (NS 10 ml) 10 ml PRN PRN IV IV PROTOCOL; Start 11/01/18 at 16:30 Collagenase (Santyl) 1 applic DAILY TOP Last administered on 11/16/18 08:22; Admin Dose 1 APPLIC; Start 11/01/18 at 19:30 Norepinephrine 32 mg/Dextrose 250 ml @ 0.47 mls/hr TITRATE IV Last administered on 11/02/18 12:15; Admin Dose 0.47 MLS/HR; Start 11/02/18 at 11:30 Midodrine (Proamatine) 5 mg TID@09,13,17 GTB Last administered on 11/08/18 12:53; Admin Dose 5 MG; Start 11/03/18 at 09:00; Status Hold Guaifenesin (Robitussin Liquid Cup) 100 mg Q4H PRN PO COUGH Last administered on 11/13/18 17:58; Admin Dose 100 MG; Start 11/03/18 at 12:00 Calcitriol (Rocaltrol) 1.5 mcg BID PO Last administered on 11/16/18 08:26; Admin Dose 1.5 MCG; Start 11/07/18 at 21:00 Lorazepam (Ativan) 1 mg Q4 GTB Last administered on 11/16/18 08:23; Admin Dose 1 MG; Start 11/09/18 at 14:00 Carvedilol (Coreg) 6.25 mg BID PO Last administered on 11/16/18 08:25; Admin Dose 6.25 MG; Start 11/09/18 at 21:00 Benazepril HCl (Lotensin) 10 mg DAILY PO Last administered on 11/16/18 08:24; Admin Dose 10 MG; Start 11/10/18 at 09:00 Digoxin (Digoxin) 0.25 mg DAILY@13 PO Last administered on 11/15/18 13:38; Admin Dose 0.25 MG; Start 11/11/18 at 13:00 Furosemide (Lasix) 20 mg DAILY IV Last administered on 11/15/18 08:58; Admin Dose 20 MG; Start 11/10/18 at 12:30; Status Hold Hydromorphone HCl (Dilaudid) 3 mg Q4H PRN PO MODERATE PAIN LEVEL 7-10 Last administered on 11/16/18 00:38; Admin Dose 3 MG; Start 11/10/18 at 22:00 Cefepime HCl 50 ml @ 100 mls/hr Q12 IVPB Last administered on 11/16/18 08:27; Admin Dose 100 MLS/HR; Start 11/10/18 at 23:30 Fentanyl 100 ml @ 2.5 mls/hr TITRATE IV Last administered on 11/15/18at 18:54; Admin Dose 2.5 MLS/HR; Start 11/14/18 at 09:00 Ascorbic Acid (Vitamin C) 250 mg DAILY GTB Last administered on 11/16/18 08:25; Admin Dose 250 MG; Start 11/15/18 at 09:00; Stop 11/29/18 at 09:00 Zinc Sulfate (Zinc Sulfate) 220 mg DAILY GTB Last administered on 11/16/18 08:23; Admin Dose 220 MG; Start 11/15/18 at 09:00; Stop 11/29/18 at 09:00 Miscellaneous Information (*Order Clarification Bulletin) MEDICATION REQUIRES CLARIFICATI... Q8H XX ; Start 11/15/18 at 12:00 Hydrocortisone (Cortef) 15 mg HS PEG Last administered on 11/15/18 20:41; Admin Dose 15 MG; Start 11/15/18 at 21:00 Hydrocortisone (Cortef) 15 mg QAM PEG Last administered on 11/16/18 08:26; Admin Dose 15 MG; Start 11/16/18 at 09:00 Hydrocortisone (Cortef) 15 mg AC DINNER PEG Last administered on 11/15/18 16:57; Admin Dose 15 MG; Start 11/15/18 at 17:05 Acetazolamide (Diamox) 500 mg DAILY IV ; Start 11/16/18 at 09:30 PILAR BERGER Nov 16, 2018 09:16
[2018-11-16] MEDS: HYDROXYCHLOROQUINE 200 MG TAB PO SCH ×2 (09:51→20:16)
[2018-11-16] MEDS: ACETAZOLAMIDE 500 MG INJ IV SCH (09:51)
--- NOTE | 2018-11-16 11:35 | CONS ---
Assessment/Plan Cardiology Heart Failure Type: Acute on Chronic Heart Failure Type: Systolic Assessment/Plan Hospital Course (Demo Recall) IMPRESSION: 1. Tachycardia- S tach. Ongoing Likley due to anxiety/infection/cardiomyopathy, multifactorial 2. Hypotension-now off pressors with HTN but labile 3. Abnormal electrocardiogram at baseline. 4. Chronic respiratory failure, status post tracheostomy.-weaning vent support 5. Dysphagia, status post G-tube. 6. Quadriplegia. 7. Renal insufficiency, on steroids. 8. Chronic obstructive pulmonary disease. 9. Rheumatoid arthritis. 10. Chronic kidney disease. 11. Diabetes mellitus. 12.Adrenal insufficiency 14. cardiomyopathy-EF 35-40% by echo this admit Recc -ICU -Ongoing Vent support with inability to wean from High percentage FI02 -Continue abx's and f/u cx data -continue steroids -Follow volume status -Continue coreg and ACEI as tolerated -Continue now po digoxin and follow HR closely -Contineu gentle lasix diuresis -started on fentanyl drip for patient comfort/tachypnea -check digoxin level and if low will give additional IVP digoxin in attempt to improve HR -Now DNR Consultation Date/Type/Reason Admit Date/Time Oct 09, 2018 at 12:16 Initial Consult Date 10/09/18 Type of Consult Cardiology Reason for Consultation Cardiomyopathy Requesting Provider: NOLA VIDAL MD Date/Time of Note DATE: 11/16/18 TIME: 11:33 Exam/Review of Systems Vital Signs Vitals Vital Signs Date Temp Pulse Resp B/P (MAP) Pulse Ox O2 O2 Flow FiO2 Time Delivery Rate 11/16/18 115 29 104/77 98 Mechanical 11:00 (86) Ventilator 11/16/18 99.2 08:00 11/16/18 85 08:00 Intake and Output 11/15/18 11/15/18 11/16/18 1515:00 23:00 07:00 IntakeIntake Total 430.0 ml 432.0 ml 385.0 ml OutputOutput Total 1150 ml 425 ml 300 ml BalanceBalance -720.0 ml 7.0 ml 85.0 ml Exam Exam Review of Systems: CONSTITUTIONAL: No fevers, chills. PULMONARY: sob CARDIOVASCULAR: No chest pain/palpitations GASTROINTESTINAL: No nausea/vomiting. GENITOURINARY: No hematuria/dysuria. MUSCULOSKELETAL: No myagias/arthalgias. PSYCHIATRIC: The patient denies depression. NEUROLOGIC: quad Constitutional: alert Psych: no complaints Head: normocephalic ENMT: mucosa pink and moist Neck: other (trached) Respiratory: diminished breath sounds (at bases/B) Cardiovascular: regular rate and rhythm Gastrointestinal: soft, non-tender Musculoskeletal: muscle tone (generalized weakness) Extremities: edema (trace/B) Neurological: focal weakness Labs Result Diagram: 11/16/18 0948 11/16/18 0330 Results 24hrs Laboratory Tests Test 11/15/18 13:41 11/15/18 14:30 11/15/18 14:55 11/15/18 20:53 Bedside Glucose 145 161 Urine Color YELLOW Urine Clarity SLIGHTLY CLOUDY A Urine pH 7.0 Urine Specific 1.013 [place] Urine Ketones NEGATIVE Urine Nitrite NEGATIVE Urine Bilirubin NEGATIVE Urine Urobilinogen NEGATIVE Urine Leukocyte NEGATIVE Esterase Urine Microscopic 11 H RBC Urine Microscopic 7 H WBC Urine Bacteria FEW A Urine Mucus FEW A Urine Hemoglobin NEGATIVE Urine Glucose NEGATIVE Urine Total NEGATIVE Protein Lactic Acid Level 1.5 Test 11/16/18 03:29 11/16/18 03:30 11/16/18 08:28 11/16/18 09:48 Bedside Glucose 136 122 White Blood Count 14.1 H 15.0 H Red Blood Count 2.58 L 2.57 L Hemoglobin 7.2 L 7.3 L Hematocrit 25.2 L 24.9 L Mean Corpuscular 97.7 96.9 Volume Mean Corpuscular 27.9 L 28.4 L Hemoglobin Mean Corpuscular 28.6 L 29.3 L Hemoglobin Concent Red Cell 16.1 H 16.0 H Distribution Width Platelet Count 418 H 406 Mean Platelet 10.9 H 10.3 Volume Immature 2.200 H 2.100 H Granulocytes % Neutrophils % 72.6 63.3 Lymphocytes % 5.4 L 6.6 L Monocytes % 9.1 10.7 Eosinophils % 10.0 H 16.6 H Basophils % 0.7 0.7 Nucleated Red 0.0 0.0 Blood Cells % Immature 0.310 H 0.310 H Granulocytes # Neutrophils # 10.2 H 9.5 H Lymphocytes # 0.8 1.0 Monocytes # 1.3 H 1.6 H Eosinophils # 1.4 H 2.5 H Basophils # 0.1 0.1 Nucleated Red 0.0 0.0 Blood Cells # Sodium Level 142 Potassium Level 3.5 Chloride Level 90 L Carbon Dioxide 50 *H Level Anion Gap 2 L Blood Urea 32 H Nitrogen Creatinine 0.38 L Est Glomerular > 60 Filtrat Rate mL/min Glucose Level 139 Calcium Level 7.8 L Phosphorus Level 3.6 Magnesium Level 2.1 Medications Medications Current Medications Acetaminophen (Tylenol Liquid) 650 mg Q4H PRN GTB MILD PAIN(1-3)OR ELEVATED TEMP Last administered on 11/14/18 16:44; Admin Dose 650 MG; Start 10/09/18 at 14:00 Al Hydrox/Mg Hydrox/Simethicone (Mag-Al Plus) 15 ml Q6H PRN PO GASTROINTESTINAL UPSET Last administered on 10/17/18 13:18; Admin Dose 15 ML; Start 10/09/18 at 14:00 Eye Lubricant (Artificial Tears Oph) 1 drop Q6H PRN BOTH EYES DRY EYES Last administered on 11/03/18 09:33; Admin Dose 1 DROP; Start 10/09/18 at 14:00 Bisacodyl (Dulcolax Supp) 10 mg DAILY PRN [place] CONSTIPATION; Start 10/09/18 at 14:00 Clonidine (Catapres) 0.1 mg DAILY PRN GTB ELEVATED BLOOD PRESSURE; Start 10/09/18 at 14:00 Diltiazem HCl (Cardizem Iv) 5 mg Q4 PRN IV ELEVATED HEART RATE Last administered on 11/06/18at 18:47; Admin Dose 5 MG; Start 10/09/18 at 14:00 Diphenhydramine HCl (Benadryl Liquid Cup) 25 mg Q6 PRN GTB ITCHING Last administered on 10/22/18 20:25; Admin Dose 25 MG; Start 10/09/18 at 14:00 Duloxetine HCl (Cymbalta) 30 mg DAILY PO Last administered on 11/16/18 08:25; Admin Dose 30 MG; Start 10/10/18 at 09:00 Gabapentin (Neurontin Liquid) 400 mg Q8 GTB Last administered on 11/16/18 05:37; Admin Dose 400 MG; Start 10/09/18 at 15:30 Hydralazine HCl (Apresoline) 10 mg Q4H PRN IV ELEVATED BLOOD PRESSURE; Start 10/09/18 at 14:00 Hydroxychloroquine Sulfate (Plaquenil) 200 mg BID PO Last administered on 11/16/18 09:51; Admin Dose 200 MG; Start 10/09/18 at 21:00 Diagnostic Test (Pha) (Accu-Chek) 1 ea 02 XX Last administered on 11/15/18 01:23; Admin Dose 1 EA; Start 10/10/18 at 02:00 Insulin Aspart (Novolog Insulin Pen) NOVOLOG *CUSTOM* ALGORITHM Q6H SC Last administered on 11/15/18 21:03; Admin Dose 1 UNIT; Start 10/09/18 at 14:00 Lactobacillus Acidophilus (Florajen3 Capsule) 1 each BID GTB Last administered on 11/16/18 08:25; Admin Dose 1 EACH; Start 10/09/18 at 21:00 Lansoprazole (Prevacid) 30 mg BID@06,18 GTB Last administered on 11/16/18 05:37; Admin Dose 30 MG; Start 10/09/18 at 18:00 Levetiracetam (Keppra Liquid) 500 mg BID GTB Last administered on 11/16/18 08:22; Admin Dose 500 MG; Start 10/09/18 at 21:00 Magnesium Oxide (Mag-Ox 400) 400 mg BID GTB Last administered on 11/16/18 08:37; Admin Dose 400 MG; Start 10/09/18 at 21:00 Metoclopramide HCl (Reglan) 10 mg TID IV Last administered on 11/16/18 08:22; Admin Dose 10 MG; Start 10/09/18 at 21:00 Miconazole Nitrate (Miconazole 2% Cr) 1 applic BID TOP Last administered on 11/16/18 08:30; Admin Dose 1 APPLIC; Start 10/09/18 at 21:00 Miconazole Nitrate (Miconazole 2% Cr) 1 applic Q12 PRN TOP rash; Start 10/09/18 at 14:00 Ondansetron HCl (Zofran Inj) 4 mg Q4H PRN IV NAUSEA AND/OR VOMITING Last administered on 10/19/18 16:37; Admin Dose 4 MG; Start 10/09/18 at 14:00 Polyethylene Glycol (Miralax) 17 gm DAILY PRN GTB CONSTIPATION; Start 10/09/18 at 14:00 Senna (Senokot) 2 tab Q8 PRN PO CONSTIPATION; Start 10/09/18 at 14:00 Trimethoprim/ Sulfamethoxazole (Bactrim Susp) 40 ml DAILY GTB Last administered on 11/16/18 08:29; Admin Dose 40 ML; Start 10/10/18 at 09:00 Zolpidem Tartrate (Ambien) 5 mg HS PRN PO INSOMNIA Last administered on 11/03/18 01:16; Admin Dose 5 MG; Start 10/09/18 at 14:00 Miscellaneous Information 1 ea NOTE XX ; Start 10/09/18 at 15:00 Glucose (Glutose) 15 gm Q15M PRN PO DECREASED GLUCOSE; Start 10/09/18 at 15:00 Glucose (Glutose) 22.5 gm Q15M PRN PO DECREASED GLUCOSE; Start 10/09/18 at 15:00 Dextrose (D50w Syringe) 25 ml Q15M PRN IV DECREASED GLUCOSE; Start 10/09/18 at 15:00 Dextrose (D50w Syringe) 50 ml Q15M PRN IV DECREASED GLUCOSE; Start 10/09/18 at 15:00 Glucagon (Glucagen) 1 mg Q15M PRN IM DECREASED GLUCOSE; Start 10/09/18 at 15:00 Glucose (Glutose) 15 gm Q15M PRN BUCCAL DECREASED GLUCOSE; Start 10/09/18 at 15:00 Albuterol (Ventolin Hfa) 4 puff Q6H RESP THERAPY INH Last administered on 11/16/18 09:01; Admin Dose 4 PUFF; Start 10/10/18 at 02:00 Ipratropium [place] (Atrovent Hfa) 4 puff Q6H RESP THERAPY INH Last administer ed on 11/16/18 09:01; Admin Dose 4 PUFF; Start 10/10/18 at 02:00 Linagliptin (Tradjenta) 5 mg DAILY PO Last administered on 11/16/18 08:29; Admin Dose 5 MG; Start 10/16/18 at 10:30 Quetiapine Fumarate (Seroquel) 100 mg BID GTB Last administered on 11/16/18 08:26; Admin Dose 100 MG; Start 10/21/18 at 21:00 Calcium Carbonate (Ca Carbonate) 1,250 mg QID GTB Last administered on 11/16/18 08:22; Admin Dose 1,250 MG; Start 10/24/18 at 13:00 Metoprolol Tartrate (Lopressor) 5 mg Q4H PRN IV HR>110 Hold SBP<100 Last administered on 11/11/18 18:31; Admin Dose 5 MG; Start 10/28/18 at 12:30 Phenylephrine HCl 40 mg/Dextrose 250 ml @ 37.5 mls/hr TITRATE IV Last administered on 11/02/18 09:05; Admin Dose 11.25 MLS/HR; Start 11/01/18 at 13:30 IV Flush (NS 10 ml) 10 ml PRN PRN IV IV PROTOCOL; Start 11/01/18 at 16:30 Collagenase (Santyl) 1 applic DAILY TOP Last administered on 11/16/18 08:22; Admin Dose 1 APPLIC; Start 11/01/18 at 19:30 Norepinephrine 32 mg/Dextrose 250 ml @ 0.47 mls/hr TITRATE IV Last administered on 11/02/18 12:15; Admin Dose 0.47 MLS/HR; Start 11/02/18 at 11:30 Midodrine (Proamatine) 5 mg TID@09,13,17 GTB Last administered on 11/08/18 12:53; Admin Dose 5 MG; Start 11/03/18 at 09:00; Status Hold Guaifenesin (Robitussin Liquid Cup) 100 mg Q4H PRN PO COUGH Last administered on 11/13/18 17:58; Admin Dose 100 MG; Start 11/03/18 at 12:00 Calcitriol (Rocaltrol) 1.5 mcg BID PO Last administered on 11/16/18 08:26; Admin Dose 1.5 MCG; Start 11/07/18 at 21:00 Lorazepam (Ativan) 1 mg Q4 GTB Last administered on 11/16/18 08:23; Admin Dose 1 MG; Start 11/09/18 at 14:00 Carvedilol (Coreg) 6.25 mg BID PO Last administered on 11/16/18 08:25; Admin Dose 6.25 MG; Start 11/09/18 at 21:00 Benazepril HCl (Lotensin) 10 mg DAILY PO Last administered on 11/16/18 08:24; Admin Dose 10 MG; Start 11/10/18 at 09:00 Digoxin (Digoxin) 0.25 mg DAILY@13 PO Last administered on 11/15/18 13:38; Admin Dose 0.25 MG; Start 11/11/18 at 13:00 Furosemide (Lasix) 20 mg DAILY IV Last administered on 11/15/18 08:58; Admin Dose 20 MG; Start 11/10/18 at 12:30; Status Hold Hydromorphone HCl (Dilaudid) 3 mg Q4H PRN PO MODERATE PAIN LEVEL 7-10 Last administered on 11/16/18 00:38; Admin Dose 3 MG; Start 11/10/18 at 22:00 Cefepime HCl 50 ml @ 100 mls/hr Q12 IVPB Last administered on 11/16/18 08:27; Admin Dose 100 MLS/HR; Start 11/10/18 at 23:30 Fentanyl 100 ml @ 2.5 mls/hr TITRATE IV Last administered on 11/15/18 18:54; Admin Dose 2.5 MLS/HR; Start 11/14/18 at 09:00 Ascorbic Acid (Vitamin C) 250 mg DAILY GTB Last administered on 11/16/18 08:25; Admin Dose 250 MG; Start 11/15/18 at 09:00; Stop 11/29/18 at 09:00 Zinc Sulfate (Zinc Sulfate) 220 mg DAILY GTB Last administered on 11/16/18 08:23; Admin Dose 220 MG; Start 11/15/18 at 09:00; Stop 11/29/18 at 09:00 Miscellaneous Information (*Order Clarification Bulletin) MEDICATION REQUIRES CLARIFICATI... Q8H XX ; Start 11/15/18 at 12:00 Hydrocortisone (Cortef) 15 mg HS PEG Last administered on 11/15/18 20:41; Admin Dose 15 MG; Start 11/15/18 at 21:00 Hydrocortisone (Cortef) 15 mg QAM PEG Last administered on 11/16/18 08:26; Admin Dose 15 MG; Start 11/16/18 at 09:00 Hydrocortisone (Cortef) 15 mg AC DINNER PEG Last administered on 11/15/18 16:57; Admin Dose 15 MG; Start 11/15/18 at 17:05 Acetazolamide (Diamox) 500 mg DAILY IV Last administered on 4/3/19at 09:51; Admin Dose 500 MG; Start 11/16/18 at 09:30 BRISA HAQUE Nov 16, 2018 11:35
[2018-11-16] MEDS: ACETAMINOPHEN 650MG/20.3ML CUP GTB PRN (12:03)
[2018-11-16] MEDS: DIGOXIN 0.25 MG TAB PO SCH (12:04)
--- NOTE | 2018-11-16 13:12 | CONS ---
Assessment/Plan Assessment/Plan Assessment/Plan (Daily) Brief follow-up note spoke with patient's once again to inform her the patient had decided upon comfort measures. In the interim she has called her children some live out of the state they will be arriving on anticipate terminal extubation on Wednesday. Consultation Date/Type/Reason Admit Date/Time Oct 09, 2018 at 12:16 Initial Consult Date 10/12/18 Requesting Provider: NOLA VIDAL MD Date/Time of Note DATE: 11/16/18 TIME: 13:11 Exam/Review of Systems Exam Vitals Vital Signs Date Temp Pulse Resp B/P (MAP) Pulse Ox O2 O2 Flow FiO2 Time Delivery Rate 11/16/18 119 36 92 85 11:53 11/16/18 104/77 Mechanical 11:00 (86) Ventilator 11/16/18 99.2 08:00 Intake and Output 11/15/18 11/15/18 11/16/18 1515:00 23:00 07:00 IntakeIntake Total 430.0 ml 432.0 ml 385.0 ml OutputOutput Total 1150 ml 425 ml 300 ml BalanceBalance -720.0 ml 7.0 ml 85.0 ml Results Result Diagram: 11/16/18 0948 11/16/18 0330 Results 24hrs Laboratory Tests Test 11/15/18 13:41 11/15/18 14:30 11/15/18 14:55 11/15/18 20:53 Bedside Glucose 145 161 Urine Color YELLOW Urine Clarity SLIGHTLY CLOUDY A Urine pH 7.0 Urine Specific 1.013 [place] Urine Ketones NEGATIVE Urine Nitrite NEGATIVE Urine Bilirubin NEGATIVE Urine Urobilinogen NEGATIVE Urine Leukocyte NEGATIVE Esterase Urine Microscopic 11 H RBC Urine Microscopic 7 H WBC Urine Bacteria FEW A Urine Mucus FEW A Urine Hemoglobin NEGATIVE Urine Glucose NEGATIVE Urine Total NEGATIVE Protein Lactic Acid Level 1.5 Test 11/16/18 03:29 11/16/18 03:30 11/16/18 08:28 11/16/18 09:48 Bedside Glucose 136 122 White Blood Count 14.1 H 15.0 H Red Blood Count 2.58 L 2.57 L Hemoglobin 7.2 L 7.3 L Hematocrit 25.2 L 24.9 L Mean Corpuscular 97.7 96.9 Volume Mean Corpuscular 27.9 L 28.4 L Hemoglobin Mean Corpuscular 28.6 L 29.3 L Hemoglobin Concent Red Cell 16.1 H 16.0 H Distribution Width Platelet Count 418 H 406 Mean Platelet 10.9 H 10.3 Volume Immature 2.200 H 2.100 H Granulocytes % Neutrophils % 72.6 63.3 Lymphocytes % 5.4 L 6.6 L Monocytes % 9.1 10.7 Eosinophils % 10.0 H 16.6 H Basophils % 0.7 0.7 Nucleated Red 0.0 0.0 Blood Cells % Immature 0.310 H 0.310 H Granulocytes # Neutrophils # 10.2 H 9.5 H Lymphocytes # 0.8 1.0 Monocytes # 1.3 H 1.6 H Eosinophils # 1.4 H 2.5 H Basophils # 0.1 0.1 Nucleated Red 0.0 0.0 Blood Cells # Sodium Level 142 Potassium Level 3.5 Chloride Level 90 L Carbon Dioxide 50 *H Level Anion Gap 2 L Blood Urea 32 H Nitrogen Creatinine 0.38 L Est Glomerular > 60 Filtrat Rate mL/min Glucose Level 139 Calcium Level 7.8 L Phosphorus Level 3.6 Magnesium Level 2.1 Test 11/16/18 12:22 11/16/18 13:06 Digoxin Level 1.6 Bedside Glucose 140 Medications Medication Current Medications Acetaminophen (Tylenol Liquid) 650 mg Q4H PRN GTB MILD PAIN(1-3)OR ELEVATED TEMP Last administered on 11/16/18at 12:03; Admin Dose 650 MG; Start 10/09/18 at 14:00 Al Hydrox/Mg Hydrox/Simethicone (Mag-Al Plus) 15 ml Q6H PRN PO GASTROINTESTINAL UPSET Last administered on 10/17/18at 13:18; Admin Dose 15 ML; Start 10/09/18 at 14:00 Eye Lubricant (Artificial Tears Oph) 1 drop Q6H PRN BOTH EYES DRY EYES Last administered on 11/03/18at 09:33; Admin Dose 1 DROP; Start 10/09/18 at 14:00 Bisacodyl (Dulcolax Supp) 10 mg DAILY PRN [place] CONSTIPATION; Start 10/09/18 at 14:00 Clonidine (Catapres) 0.1 mg DAILY PRN GTB ELEVATED BLOOD PRESSURE; Start 10/09/18 at 14:00 Diltiazem HCl (Cardizem Iv) 5 mg Q4 PRN IV ELEVATED HEART RATE Last administered on 11/06/18 18:47; Admin Dose 5 MG; Start 10/09/18 at 14:00 Diphenhydramine HCl (Benadryl Liquid Cup) 25 mg Q6 PRN GTB ITCHING Last administered on 10/22/18 20:25; Admin Dose 25 MG; Start 10/09/18 at 14:00 Duloxetine HCl (Cymbalta) 30 mg DAILY PO Last administered on 11/16/18 08:25; Admin Dose 30 MG; Start 10/10/18 at 09:00 Gabapentin (Neurontin Liquid) 400 mg Q8 GTB Last administered on 11/16/18 05:3 7; Admin Dose 400 MG; Start 10/09/18 at 15:30 Hydralazine HCl (Apresoline) 10 mg Q4H PRN IV ELEVATED BLOOD PRESSURE; Start 10/09/18 at 14:00 Hydroxychloroquine Sulfate (Plaquenil) 200 mg BID PO Last administered on 11/16/18 09:51; Admin Dose 200 MG; Start 10/09/18 at 21:00 Diagnostic Test (Pha) (Accu-Chek) 1 ea 02 XX Last administered on 11/15/18 01:23; Admin Dose 1 EA; Start 10/10/18 at 02:00 Insulin Aspart (Novolog Insulin Pen) NOVOLOG *CUSTOM* ALGORITHM Q6H SC Last administered on 11/15/18 21:03; Admin Dose 1 UNIT; Start 10/09/18 at 14:00 Lactobacillus Acidophilus (Florajen3 Capsule) 1 each BID GTB Last administered on 11/16/18 08:25; Admin Dose 1 EACH; Start 10/09/18 at 21:00 Lansoprazole (Prevacid) 30 mg BID@,18 GTB Last administered on 11/16/18 05:37; Admin Dose 30 MG; Start 10/09/18 at 18:00 Levetiracetam (Keppra Liquid) 500 mg BID GTB Last administered on 11/16/18 08:22; Admin Dose 500 MG; Start 10/09/18 at 21:00 Magnesium Oxide (Mag-Ox 400) 400 mg BID GTB Last administered on 11/16/18 08:37; Admin Dose 400 MG; Start 10/09/18 at 21:00 Metoclopramide HCl (Reglan) 10 mg TID IV Last administered on 11/16/18at 08:22; Admin Dose 10 MG; Start 10/09/18 at 21:00 Miconazole Nitrate (Miconazole 2% Cr) 1 applic BID TOP Last administered on 11/16/18at 08:30; Admin Dose 1 APPLIC; Start 10/09/18 at 21:00 Miconazole Nitrate (Miconazole 2% Cr) 1 applic Q12 PRN TOP rash; Start 10/09/18 at 14:00 Ondansetron HCl (Zofran Inj) 4 mg Q4H PRN IV NAUSEA AND/OR VOMITING Last administered on 10/19/18at 16:37; Admin Dose 4 MG; Start 10/09/18 at 14:00 Polyethylene Glycol (Miralax) 17 gm DAILY PRN GTB CONSTIPATION; Start 10/09/18 at 14:00 Senna (Senokot) 2 tab Q8 PRN PO CONSTIPATION; Start 10/09/18 at 14:00 Trimethoprim/ Sulfamethoxazole (Bactrim Susp) 40 ml DAILY GTB Last administered on 11/16/18at 08:29; Admin Dose 40 ML; Start 10/10/18 at 09:00 Zolpidem Tartrate (Ambien) 5 mg HS PRN PO INSOMNIA Last administered on 11/03/18at 01:16; Admin Dose 5 MG; Start 10/09/18 at 14:00 Miscellaneous Information 1 ea NOTE XX ; Start 10/09/18 at 15:00 Glucose (Glutose) 15 gm Q15M PRN PO DECREASED GLUCOSE; Start 10/09/18 at 15:00 Glucose (Glutose) 22.5 gm Q15M PRN PO DECREASED GLUCOSE; Start 10/09/18 at 15:00 Dextrose (D50w Syringe) 25 ml Q15M PRN IV DECREASED GLUCOSE; Start 10/09/18 at 15:00 Dextrose (D50w Syringe) 50 ml Q15M PRN IV DECREASED GLUCOSE; Start 10/09/18 at 15:00 Glucagon (Glucagen) 1 mg Q15M PRN IM DECREASED GLUCOSE; Start 10/09/18 at 15:00 Glucose (Glutose) 15 gm Q15M PRN BUCCAL DECREASED GLUCOSE; Start 10/09/18 at 15:00 Albuterol (Ventolin Hfa) 4 puff Q6H RESP THERAPY INH Last administered on 11/16/18 09:01; Admin Dose 4 PUFF; Start 10/10/18 at 02:00 Ipratropium [place] (Atrovent Hfa) 4 puff Q6H RESP THERAPY INH Last administered on 11/16/18 09:01; Admin Dose 4 PUFF; Start 10/10/18 at 02:00 Linagliptin (Tradjenta) 5 mg DAILY PO Last administered on 11/16/18 08:29; Admin Dose 5 MG; Start 10/16/18 at 10:30 Quetiapine Fumarate (Seroquel) 100 mg BID GTB Last administered on 11/16/18 08:26; Admin Dose 100 MG; Start 10/21/18 at 21:00 Calcium Carbonate (Ca Carbonate) 1,250 mg QID GTB Last administered on 11/16/18 12:03; Admin Dose 1,250 MG; Start 10/24/18 at 13:00 Metoprolol Tartrate (Lopressor) 5 mg Q4H PRN IV HR>110 Hold SBP<100 Last administered on 11/11/18 18:31; Admin Dose 5 MG; Start 10/28/18 at 12:30 Phenylephrine HCl 40 mg/Dextrose 250 ml @ 37.5 mls/hr TITRATE IV Last administered on 11/02/18 09:05; Admin Dose 11.25 MLS/HR; Start 11/01/18 at 13:30 IV Flush (NS 10 ml) 10 ml PRN PRN IV IV PROTOCOL; Start 11/01/18 at 16:30 Collagenase (Santyl) 1 applic DAILY TOP Last administered on 11/16/18 08:22; Admin Dose 1 APPLIC; Start 11/01/18 at 19:30 Norepinephrine 32 mg/Dextrose 250 ml @ 0.47 mls/hr TITRATE IV Last administered on 11/02/18 12:15; Admin Dose 0.47 MLS/HR; Start 11/02/18 at 11:30 Midodrine (Proamatine) 5 mg TID@,,17 GTB Last administered on 11/08/18 12:53; Admin Dose 5 MG; Start 11/03/18 at 09:00; Status Hold Guaifenesin (Robitussin Liquid Cup) 100 mg Q4H PRN PO COUGH Last administered on 11/13/18 17:58; Admin Dose 100 MG; Start 11/03/18 at 12:00 Calcitriol (Rocaltrol) 1.5 mcg BID PO Last administered on 11/16/18 08:26; Admin Dose 1.5 MCG; Start 11/07/18 at 21:00 Lorazepam (Ativan) 1 mg Q4 GTB Last administered on 11/16/18 12:03; Admin Dose 1 MG; Start 11/09/18 at 14:00 Carvedilol (Coreg) 6.25 mg BID PO Last administered on 11/16/18 08:25; Admin Dose 6.25 MG; Start 11/09/18 at 21:00 Benazepril HCl (Lotensin) 10 mg DAILY PO Last administered on 11/16/18 08:24; Admin Dose 10 MG; Start 11/10/18 at 09:00 Digoxin (Digoxin) 0.25 mg DAILY@13 PO Last administered on 11/16/18 12:04; Admin Dose 0.25 MG; Start 11/11/18 at 13:00 Furosemide (Lasix) 20 mg DAILY IV Last administered on 11/15/18 08:58; Admin Dose 20 MG; Start 11/10/18 at 12:30; Status Hold Hydromorphone HCl (Dilaudid) 3 mg Q4H PRN PO MODERATE PAIN LEVEL 7-10 Last administered on 11/16/18 00:38; Admin Dose 3 MG; Start 11/10/18 at 22:00 Cefepime HCl 50 ml @ 100 mls/hr Q12 IVPB Last administered on 11/16/18 08:27; Admin Dose 100 MLS/HR; Start 11/10/18 at 23:30 Fentanyl 100 ml @ 2.5 mls/hr TITRATE IV Last administered on 11/15/18 18:54; Admin Dose 2.5 MLS/HR; Start 11/14/18 at 09:00 Ascorbic Acid (Vitamin C) 250 mg DAILY GTB Last administered on 11/16/18 08:25; Admin Dose 250 MG; Start 11/15/18 at 09:00; Stop 11/29/18 at 09:00 Zinc Sulfate (Zinc Sulfate) 220 mg DAILY GTB Last administered on 11/16/18 08:23; Admin Dose 220 MG; Start 11/15/18 at 09:00; Stop 11/29/18 at 09:00 Miscellaneous Information (*Order Clarification Bulletin) MEDICATION REQUIRES CLARIFICATI... Q8H XX ; Start 11/15/18 at 12:00 Hydrocortisone (Cortef) 15 mg HS PEG Last administered on 11/15/18at 20:41; Admin Dose 15 MG; Start 11/15/18 at 21:00 Hydrocortisone (Cortef) 15 mg QAM PEG Last administered on 11/16/18at 08:26; Admin Dose 15 MG; Start 11/16/18 at 09:00 Hydrocortisone (Cortef) 15 mg AC DINNER PEG Last administered on 11/15/18at 16: 57; Admin Dose 15 MG; Start 11/15/18 at 17:05 Acetazolamide (Diamox) 500 mg DAILY IV Last administered on 11/16/18at 09:51; Admin Dose 500 MG; Start 11/16/18 at 09:30 RENATO GAMBOA Nov 16, 2018 13:12
--- NOTE | 2018-11-16 14:34 | CONS ---
Assessment/Plan Assessment/Plan Hospital Course (Demo Recall) # sepsis, respiratory - recurrent sepsis probably due to aspiration pneumonia, HCAP, UTI - s/p recurrent sepsis due to aspiration pneumonia, HCAP - possible aspiration pneumonia, recurrent pneumonia due to citrobacter - acute on chronic hypoxic and hypercarbic respiratory failure - intermittent leukocytosis likely due to steroid margination and sepsis - h/o tracheostomy on 08/26/2018 - h/o "Increased mild left apical pneumothorax" per CXR on 09/19/2018; no pneumothorax mentioned on subsequent CXR - h/o pneumomediastinum - h/o VAT on 08/11/2018 - h/o asthma/COPD exacerbation - h/o acute tracheobronchitis - h/o MAC infection but CT chest did not demonstrate features suggestive of this per chart review - h/o HCAP due to citrobacter, based on resp culture on 09/13/2018 - h/o aspergillus in resp culture according to a note by Dr. Lopez, a pulmonlogist at [facility] on 07/25/2018 - h/o elevated 1,3 [id number] level = 232 on 08/06/2018 - h/o MSSA septicemia # GI - diarrhea, C diff on 10/09/2018 and 11/11/2018 was negative. 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 x 21 days from 08/26/2018 - h/o EGD, esophageal biopsy showed esophageal squamous mucosa showing acute inflammation, granulation tissue, and ulceration consistent with ulcerative esophagitis, rare multinucleated cells with morphology suggestive of vial cytopathic changes, No cardiac mucosa, intestinal metaplasia, dysplasia, or malignancy defined - GERD - PUD # renal/ - UTI due to enterococci 11/15/2018 - Hypokalemia, recurrent - CKD 2 - BPH # cardiac - tachycardia, persistent - ACD - HTN # endo - T2DM - Hgb A1c 7.2% - secondary adrenal insufficiency; steroid dependent - HLD - Hypoparathyroidism - Hypercalcemia - Pamidronate was ordered # neuro - toxic metabolic encephalopathy - Cervical myopathy - Severe cervical spinal cord stenosis with cord compression from C3-C5, s/p laminectomy in ~03/2018 - Chronic pain syndrome - Functional quadriplegia - Seizure d/o # other chronic conditions - RA with chronic steroid dependence - Immunocompromised status - Fibromyalgia - DDD - H/o multiple rib fracture - Pt completed: meropenem (09/25/2018-10/02/2018), vancomycin (09/25/18-09/28/18), pip/tazo (10/09/2018-10/15/2018) - so far: pneumocystis antigen negative, AFB smear negative and final culture x3 pending, quantiferon TB gold negative, coccidioides serology negative recommendations: - pending results: blood cultures x2, procalcitonin, 1,4-sfqb-E-glucan, urine culture (enterococci), resp culture - ordered: LE doppler to r/o DVT - continue cefepime (restarted 11/10/2018-) - start daptomycin (11/16/2018-) 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 Pt cannot take linezolid due to its interaction with seroquel - continue Bactrim for pneumocystis PPX Management d/w BEADER the critical care time that I took to care for this Pt today was from 1345 to 1415 Consultation Date/Type/Reason Admit Date/Time Oct 09, 2018 at 12:16 Initial Consult Date 10/09/18 Type of Consult ID Requesting Provider: NOLA VIDAL MD Date/Time of Note DATE: 11/16/18 TIME: 14:29 24 HR Interval Summary Subjective hx not possible: pt critical, pt critical status, other (only kept saying "pain in legs") Exam/Review of Systems Exam Vitals Vital Signs Date Temp Pulse Resp B/P (MAP) Pulse Ox O2 O2 Flow FiO2 Time Delivery Rate 11/16/18 117 12:00 11/16/18 36 92 85 11:53 11/16/18 104/77 Mechanical 11:00 (86) Ventilator 11/16/18 99.2 08:00 Intake and Output 11/15/18 11/15/18 11/16/18 1515:00 23:00 07:00 IntakeIntake Total 430.0 ml 432.0 ml 385.0 ml OutputOutput Total 1150 ml 425 ml 300 ml BalanceBalance -720.0 ml 7.0 ml 85.0 ml Constitutional: non-verbal, frail Psych: confusion Head: normocephalic, atraumatic Eyes: nl conjunctiva, nl sclera, other (augusto-orbital swelling) ENMT: nl external ears & nose, nl nasal mucosa & septum, mucosa pink and moist Neck: other (trach) Respiratory: diminished breath sounds Cardiovascular: regular rate and rhythm, nl pulses Gastrointestinal: soft, non-tender, other (PEG) Genitourinary - Male: other (FC) Musculoskeletal: other (feet and LEs are diffusely TTP but no edema); No swelling Extremities: pitting pedal edema Skin: nl turgor, rash or lesions (stage II coccygeal wound) Results Result Diagram: 11/16/18 0948 11/16/18 0330 Results 24hrs Laboratory Tests Test 11/15/18 14:30 11/15/18 14:55 11/15/18 20:53 11/16/18 03:29 Urine Color YELLOW Urine Clarity SLIGHTLY CLOUDY A Urine pH 7.0 Urine Specific 1.013 [place] Urine Ketones NEGATIVE Urine Nitrite NEGATIVE Urine Bilirubin NEGATIVE Urine Urobilinogen NEGATIVE Urine Leukocyte NEGATIVE Esterase Urine Microscopic 11 H RBC Urine Microscopic 7 H WBC Urine Bacteria FEW A Urine Mucus FEW A Urine Hemoglobin NEGATIVE Urine Glucose NEGATIVE Urine Total NEGATIVE Protein Lactic Acid Level 1.5 Bedside Glucose 161 136 Test 11/16/18 03:30 11/16/18 08:28 11/16/18 09:48 11/16/18 12:22 White Blood Count 14.1 H 15.0 H Red Blood Count 2.58 L 2.57 L Hemoglobin 7.2 L 7.3 L Hematocrit 25.2 L 24.9 L Mean Corpuscular 97.7 96.9 Volume Mean Corpuscular 27.9 L 28.4 L Hemoglobin Mean Corpuscular 28.6 L 29.3 L Hemoglobin Concent Red Cell 16.1 H 16.0 H Distribution Width Platelet Count 418 H 406 Mean Platelet 10.9 H 10.3 Volume Immature 2.200 H 2.100 H Granulocytes % Neutrophils % 72.6 63.3 Lymphocytes % 5.4 L 6.6 L Monocytes % 9.1 10.7 Eosinophils % 10.0 H 16.6 H Basophils % 0.7 0.7 Nucleated Red 0.0 0.0 Blood Cells % Immature 0.310 H 0.310 H Granulocytes # Neutrophils # 10.2 H 9.5 H Lymphocytes # 0.8 1.0 Monocytes # 1.3 H 1.6 H Eosinophils # 1.4 H 2.5 H Basophils # 0.1 0.1 Nucleated Red 0.0 0.0 Blood Cells # Sodium Level 142 Potassium Level 3.5 Chloride Level 90 L Carbon Dioxide 50 *H Level Anion Gap 2 L Blood Urea 32 H Nitrogen Creatinine 0.38 L Est Glomerular > 60 Filtrat Rate mL/min Glucose Level 139 Calcium Level 7.8 L Phosphorus Level 3.6 Magnesium Level 2.1 Bedside Glucose 122 Digoxin Level 1.6 Test 11/16/18 13:06 Bedside Glucose 140 Medications Medication Current Medications Acetaminophen (Tylenol Liquid) 650 mg Q4H PRN GTB MILD PAIN(1-3)OR ELEVATED TEMP Last administered on 11/16/18 12:03; Admin Dose 650 MG; Start 10/09/18 at 14:00 Al Hydrox/Mg Hydrox/Simethicone (Mag-Al Plus) 15 ml Q6H PRN PO GASTROINTESTINAL UPSET Last administered on 10/17/18 13:18; Admin Dose 15 ML; Start 10/09/18 at 14:00 Eye Lubricant (Artificial Tears Oph) 1 drop Q6H PRN BOTH EYES DRY EYES Last administered on 11/03/18 09:33; Admin Dose 1 DROP; Start 10/09/18 at 14:00 Bisacodyl (Dulcolax Supp) 10 mg DAILY PRN [place] CONSTIPATION; Start 10/09/18 at 14:00 Clonidine (Catapres) 0.1 mg DAILY PRN GTB ELEVATED BLOOD PRESSURE; Start 10/09/18 at 14:00 Diltiazem HCl (Cardizem Iv) 5 mg Q4 PRN IV ELEVATED HEART RATE Last administered on 11/06/18 18:47; Admin Dose 5 MG; Start 10/09/18 at 14:00 Diphenhydramine HCl (Benadryl Liquid Cup) 25 mg Q6 PRN GTB ITCHING Last a dministered on 10/22/18 20:25; Admin Dose 25 MG; Start 10/09/18 at 14:00 Duloxetine HCl (Cymbalta) 30 mg DAILY PO Last administered on 11/16/18 08:25; Admin Dose 30 MG; Start 10/10/18 at 09:00 Gabapentin (Neurontin Liquid) 400 mg Q8 GTB Last administered on 11/16/18 13:07; Admin Dose 400 MG; Start 10/09/18 at 15:30 Hydralazine HCl (Apresoline) 10 mg Q4H PRN IV ELEVATED BLOOD PRESSURE; Start 10/09/18 at 14:00 Hydroxychloroquine Sulfate (Plaquenil) 200 mg BID PO Last administered on 11/16/18 09:51; Admin Dose 200 MG; Start 10/09/18 at 21:00 Diagnostic Test (Pha) (Accu-Chek) 1 ea 02 XX Last administered on 11/15/18 01:23; Admin Dose 1 EA; Start 10/10/18 at 02:00 Insulin Aspart (Novolog Insulin Pen) NOVOLOG *CUSTOM* ALGORITHM Q6H SC Last administered on 11/15/18 21:03; Admin Dose 1 UNIT; Start 10/09/18 at 14:00 Lactobacillus Acidophilus (Florajen3 Capsule) 1 each BID GTB Last administered on 11/16/18 08:25; Admin Dose 1 EACH; Start 10/09/18 at 21:00 Lansoprazole (Prevacid) 30 mg BID@,18 GTB Last administered on 11/16/18 05:37; Admin Dose 30 MG; Start 10/09/18 at 18:00 Levetiracetam (Keppra Liquid) 500 mg BID GTB Last administered on 11/16/18 08:22; Admin Dose 500 MG; Start 10/09/18 at 21:00 Magnesium Oxide (Mag-Ox 400) 400 mg BID GTB Last administered on 11/16/18 08:37; Admin Dose 400 MG; Start 10/09/18 at 21:00 Metoclopramide HCl (Reglan) 10 mg TID IV Last administered on 11/16/18 13:06; Admin Dose 10 MG; Start 10/09/18 at 21:00 Miconazole Nitrate (Miconazole 2% Cr) 1 applic BID TOP Last administered on 11/16/18 08:30; Admin Dose 1 APPLIC; Start 10/09/18 at 21:00 Miconazole Nitrate (Miconazole 2% Cr) 1 applic Q12 PRN TOP rash; Start 10/09/18 at 14:00 Ondansetron HCl (Zofran Inj) 4 mg Q4H PRN IV NAUSEA AND/OR VOMITING Last administered on 10/19/18 16:37; Admin Dose 4 MG; Start 10/09/18 at 14:00 Polyethylene Glycol (Miralax) 17 gm DAILY PRN GTB CONSTIPATION; Start 10/09/18 at 14:00 Senna (Senokot) 2 tab Q8 PRN PO CONSTIPATION; Start 10/09/18 at 14:00 Trimethoprim/ Sulfamethoxazole (Bactrim Susp) 40 ml DAILY GTB Last administered on 11/16/18 08:29; Admin Dose 40 ML; Start 10/10/18 at 09:00 Zolpidem Tartrate (Ambien) 5 mg HS PRN PO INSOMNIA Last administered on 11/03/18at 01:16; Admin Dose 5 MG; Start 10/09/18 at 14:00 Miscellaneous Information 1 ea NOTE XX ; Start 10/09/18 at 15:00 Glucose (Glutose) 15 gm Q15M PRN PO DECREASED GLUCOSE; Start 10/09/18 at 15:00 Glucose (Glutose) 22.5 gm Q15M PRN PO DECREASED GLUCOSE; Start 10/09/18 at 15:00 Dextrose (D50w Syringe) 25 ml Q15M PRN IV DECREASED GLUCOSE; Start 10/09/18 at 15:00 Dextrose (D50w Syringe) 50 ml Q15M PRN IV DECREASED GLUCOSE; Start 10/09/18 at 15:00 Glucagon (Glucagen) 1 mg Q15M PRN IM DECREASED GLUCOSE; Start 10/09/18 at 15:00 Glucose (Glutose) 15 gm Q15M PRN BUCCAL DECREASED GLUCOSE; Start 10/09/18 at 15:00 Albuterol (Ventolin Hfa) 4 puff Q6H RESP THERAPY INH Last administered on 11/16/18 14:22; Admin Dose 4 PUFF; Start 10/10/18 at 02:00 Ipratropium [place] (Atrovent Hfa) 4 puff Q6H RESP THERAPY INH Last administered on 11/16/18 14:22; Admin Dose 4 PUFF; Start 10/10/18 at 02:00 Linagliptin (Tradjenta) 5 mg DAILY PO Last administered on 11/16/18 08:29; Admin Dose 5 MG; Start 10/16/18 at 10:30 Quetiapine Fumarate (Seroquel) 100 mg BID GTB Last administered on 11/16/18 08:26; Admin Dose 100 MG; Start 10/21/18 at 21:00 Calcium Carbonate (Ca Carbonate) 1,250 mg QID GTB Last administered on 11/16/18 12:03; Admin Dose 1,250 MG; Start 10/24/18 at 13:00 Metoprolol Tartrate (Lopressor) 5 mg Q4H PRN IV HR>110 Hold SBP<100 Last administered on 11/11/18 18:31; Admin Dose 5 MG; Start 10/28/18 at 12:30 Phenylephrine HCl 40 mg/Dextrose 250 ml @ 37.5 mls/hr TITRATE IV Last administered on 11/02/18 09:05; Admin Dose 11.25 MLS/HR; Start 11/01/18 at 13:30 IV Flush (NS 10 ml) 10 ml PRN PRN IV IV PROTOCOL; Start 11/01/18 at 16:30 Collagenase (Santyl) 1 applic DAILY TOP Last administered on 11/16/18 08:22; Admin Dose 1 APPLIC; Start 11/01/18 at 19:30 Norepinephrine 32 mg/Dextrose 250 ml @ 0.47 mls/hr TITRATE IV Last administered on 11/02/18 12:15; Admin Dose 0.47 MLS/HR; Start 11/02/18 at 11:30 Midodrine (Proamatine) 5 mg TID@09,13,17 GTB Last administered on 11/08/18 12:53; Admin Dose 5 MG; Start 11/03/18 at 09:00; Status Hold Guaifenesin (Robitussin Liquid Cup) 100 mg Q4H PRN PO COUGH Last administered on 11/13/18 17:58; Admin Dose 100 MG; Start 11/03/18 at 12:00 Calcitriol (Rocaltrol) 1.5 mcg BID PO Last administered on 11/16/18 08:26; Adm in Dose 1.5 MCG; Start 11/07/18 at 21:00 Lorazepam (Ativan) 1 mg Q4 GTB Last administered on 11/16/18 12:03; Admin Dose 1 MG; Start 11/09/18 at 14:00 Carvedilol (Coreg) 6.25 mg BID PO Last administered on 11/16/18 08:25; Admin Dose 6.25 MG; Start 11/09/18 at 21:00 Benazepril HCl (Lotensin) 10 mg DAILY PO Last administered on 11/16/18 08:24; Admin Dose 10 MG; Start 11/10/18 at 09:00 Digoxin (Digoxin) 0.25 mg DAILY@13 PO Last administered on 11/16/18 12:04; Admin Dose 0.25 MG; Start 11/11/18 at 13:00 Furosemide (Lasix) 20 mg DAILY IV Last administered on 11/15/18 08:58; Admin Dose 20 MG; Start 11/10/18 at 12:30; Status Hold Hydromorphone HCl (Dilaudid) 3 mg Q4H PRN PO MODERATE PAIN LEVEL 7-10 Last administered on 11/16/18 00:38; Admin Dose 3 MG; Start 11/10/18 at 22:00 Cefepime HCl 50 ml @ 100 mls/hr Q12 IVPB Last administered on 11/16/18 08:27; Admin Dose 100 MLS/HR; Start 11/10/18 at 23:30 Fentanyl 100 ml @ 2.5 mls/hr TITRATE IV Last administered on 11/15/18 18:54; Admin Dose 2.5 MLS/HR; Start 11/14/18 at 09:00 Ascorbic Acid (Vitamin C) 250 mg DAILY GTB Last administered on 11/16/18 08:25; Admin Dose 250 MG; Start 11/15/18 at 09:00; Stop 11/29/18 at 09:00 Zinc Sulfate (Zinc Sulfate) 220 mg DAILY GTB Last administered on 11/16/18 08:23; Admin Dose 220 MG; Start 11/15/18 at 09:00; Stop 11/29/18 at 09:00 Miscellaneous Information (*Order Clarification Bulletin) MEDICATION REQUIRES CLARIFICATI... Q8H XX ; Start 11/15/18 at 12:00 Hydrocortisone (Cortef) 15 mg HS PEG Last administered on 11/15/18 20:41; Admin Dose 15 MG; Start 11/15/18 at 21:00 Hydrocortisone (Cortef) 15 mg QAM PEG Last administered on 11/16/18 08:26; Admin Dose 15 MG; Start 11/16/18 at 09:00 Hydrocortisone (Cortef) 15 mg AC DINNER PEG Last administered on 4/2/19at 16:57; Admin Dose 15 MG; Start 11/15/18 at 17:05 Acetazolamide (Diamox) 500 mg DAILY IV Last administered on 11/16/18at 09:51; Admin Dose 500 MG; Start 11/16/18 at 09:30 NEMO MARTINEZ M.D. Nov 16, 2018 14:34
--- NOTE | 2018-11-16 15:54 | PN ---
Date/Time of Note Date/Time of Note DATE: 11/16/18 TIME: 15:48 Assessment/Plan VTE Prophylaxis Risk score (from Nsg)>0 risk: 8 SCD applied (from Nsg): Yes Pharmacological prophylaxis: LMWH Lines/Catheters IV Catheter Type (from Nrsg): PICC Line Central line still needed: Yes Urinary Cath still in place: No Assessment/Plan Hospital Course Patient with increased leukocytosis, low-grade fever and tachycardia, on cefepime and daptomycin for possible pneumonia and enterococcus UTI,patient continues on fentanyl drip for pain control on vent with 85% FiO2 and PEEP of 8. Assessment/Plan - Acute on chronic hypoxemic respiratory failure with underlying ARDS, continue ventilatory support. Dr. Villa is following in pulmonology consultation. - Recurrent sepsis secondary to pneumonia and UTI. Continue antibiotics per ID. Dr. Canales is following in infection disease consultation. - Acute kidney injury, resolved, continue to monitor BUN and creatinine. Dr. Hobson is following in nephrology consultation. - Tachycardia, Dr. Joshi is following in cardiology consultation. - Cardiomyopathy with EF 35-40% - Rheumatoid arthritis with steroid dependence. - Dysphagia. Continue GT feeding. - Anemia of chronic disease. - Hypoparathyroidism - Hypertension. - Functional quadriplegia - Hx of severe cervical spinal cord stenosis with cord compression from C3-C5, s/p laminectomy. - History of fibromyalgia rheumatica - Hx of VAT on 08/11/2018 - Poor prognosis, Dr. Zurita is following in palliative care consultation. - DNR status Critical care time spent 30 minutes. Further recommendations based on clinical course. Plan of care discussed with Dr. Rosales Result Diagram: 11/16/18 0948 11/16/18 0330 Results 24hrs Laboratory Tests Test 11/15/18 20:53 11/16/18 03:29 11/16/18 03:30 11/16/18 08:28 Bedside Glucose 161 136 122 White Blood Count 14.1 H Red Blood Count 2.58 L Hemoglobin 7.2 L Hematocrit 25.2 L Mean Corpuscular Volume 97.7 Mean Corpuscular 27.9 L Hemoglobin Mean Corpuscular 28.6 L Hemoglobin Concent Red Cell Distribution 16.1 H Width Platelet Count 418 H Mean Platelet Volume 10.9 H Immature Granulocytes % 2.200 H Neutrophils % 72.6 Lymphocytes % 5.4 L Monocytes % 9.1 Eosinophils % 10.0 H Basophils % 0.7 Nucleated Red Blood 0.0 Cells % Immature Granulocytes # 0.310 H Neutrophils # 10.2 H Lymphocytes # 0.8 Monocytes # 1.3 H Eosinophils # 1.4 H Basophils # 0.1 Nucleated Red Blood 0.0 Cells # Sodium Level 142 Potassium Level 3.5 Chloride Level 90 L Carbon Dioxide Level 50 *H Anion Gap 2 L Blood Urea Nitrogen 32 H Creatinine 0.38 L Est Glomerular Filtrat > 60 Rate mL/min Glucose Level 139 Calcium Level 7.8 L Phosphorus Level 3.6 Magnesium Level 2.1 Test 11/16/18 09:48 11/16/18 12:22 11/16/18 13:06 White Blood Count 15.0 H Red Blood Count 2.57 L Hemoglobin 7.3 L Hematocrit 24.9 L Mean Corpuscular Volume 96.9 Mean Corpuscular 28.4 L Hemoglobin Mean Corpuscular 29.3 L Hemoglobin Concent Red Cell Distribution 16.0 H Width Platelet Count 406 Mean Platelet Volume 10.3 Immature Granulocytes % 2.100 H Neutrophils % 63.3 Lymphocytes % 6.6 L Monocytes % 10.7 Eosinophils % 16.6 H Basophils % 0.7 Nucleated Red Blood 0.0 Cells % Immature Granulocytes # 0.310 H Neutrophils # 9.5 H Lymphocytes # 1.0 Monocytes # 1.6 H Eosinophils # 2.5 H Basophils # 0.1 Nucleated Red Blood 0.0 Cells # Digoxin Level 1.6 Bedside Glucose 140 Exam/Review of Systems Exam Vitals Vital Signs Date Temp Pulse Resp B/P (MAP) Pulse Ox O2 O2 Flow FiO2 Time Delivery Rate 11/16/18 117 12:00 11/16/18 36 92 85 11:53 11/16/18 104/77 Mechanical 11:00 (86) Ventilator 11/16/18 99.2 08:00 Intake and Output 11/15/18 11/15/18 11/16/18 1515:00 23:00 07:00 IntakeIntake Total 430.0 ml 432.0 ml 385.0 ml OutputOutput Total 1150 ml 425 ml 300 ml BalanceBalance -720.0 ml 7.0 ml 85.0 ml Exam Constitutional: lethargic, frail Neck: other (trach) Respiratory: diminished breath sounds Cardiovascular: regular rate and rhythm Gastrointestinal: soft, non-tender, other Neurological: nl mental status Results Results 24hrs Laboratory Tests Test 11/15/18 20:53 11/16/18 03:29 11/16/18 03:30 11/16/18 08:28 Bedside Glucose 161 136 122 White Blood Count 14.1 H Red Blood Count 2.58 L Hemoglobin 7.2 L Hematocrit 25.2 L Mean Corpuscular Volume 97.7 Mean Corpuscular 27.9 L Hemoglobin Mean Corpuscular 28.6 L Hemoglobin Concent Red Cell Distribution 16.1 H Width Platelet Count 418 H Mean Platelet Volume 10.9 H Immature Granulocytes % 2.200 H Neutrophils % 72.6 Lymphocytes % 5.4 L Monocytes % 9.1 Eosinophils % 10.0 H Basophils % 0.7 Nucleated Red Blood 0.0 Cells % Immature Granulocytes # 0.310 H Neutrophils # 10.2 H Lymphocytes # 0.8 Monocytes # 1.3 H Eosinophils # 1.4 H Basophils # 0.1 Nucleated Red Blood 0.0 Cells # Sodium Level 142 Potassium Level 3.5 Chloride Level 90 L Carbon Dioxide Level 50 *H Anion Gap 2 L Blood Urea Nitrogen 32 H Creatinine 0.38 L Est Glomerular Filtrat > 60 Rate mL/min Glucose Level 139 Calcium Level 7.8 L Phosphorus Level 3.6 Magnesium Level 2.1 Test 11/16/18 09:48 11/16/18 12:22 11/16/18 13:06 White Blood Count 15.0 H Red Blood Count 2.57 L Hemoglobin 7.3 L Hematocrit 24.9 L Mean Corpuscular Volume 96.9 Mean Corpuscular 28.4 L Hemoglobin Mean Corpuscular 29.3 L Hemoglobin Concent Red Cell Distribution 16.0 H Width Platelet Count 406 Mean Platelet Volume 10.3 Immature Granulocytes % 2.100 H Neutrophils % 63.3 Lymphocytes % 6.6 L Monocytes % 10.7 Eosinophils % 16.6 H Basophils % 0.7 Nucleated Red Blood 0.0 Cells % Immature Granulocytes # 0.310 H Neutrophils # 9.5 H Lymphocytes # 1.0 Monocytes # 1.6 H Eosinophils # 2.5 H Basophils # 0.1 Nucleated Red Blood 0.0 Cells # Digoxin Level 1.6 Bedside Glucose 140 Medications Medication Current Medications Acetaminophen (Tylenol Liquid) 650 mg Q4H PRN GTB MILD PAIN(1-3)OR ELEVATED TEMP Last administered on 11/16/18 12:03; Admin Dose 650 MG; Start 10/09/18 at 14:00 Al Hydrox/Mg Hydrox/Simethicone (Mag-Al Plus) 15 ml Q6H PRN PO GASTROINTESTINAL UPSET Last administered on 10/17/18 13:18; Admin Dose 15 ML; Start 10/09/18 at 14:00 Eye Lubricant (Artificial Tears Oph) 1 drop Q6H PRN BOTH EYES DRY EYES Last administered on 11/03/18 09:33; Admin Dose 1 DROP; Start 10/09/18 at 14:00 Bisacodyl (Dulcolax Supp) 10 mg DAILY PRN ND CONSTIPATION; Start 10/09/18 at 14:00 Clonidine (Catapres) 0.1 mg DAILY PRN GTB ELEVATED BLOOD PRESSURE; Start 10/09/18 at 14:00 Diltiazem HCl (Cardizem Iv) 5 mg Q4 PRN IV ELEVATED HEART RATE Last administered on 11/06/18 18:47; Admin Dose 5 MG; Start 10/09/18 at 14:00 Diphenhydramine HCl (Benadryl Liquid Cup) 25 mg Q6 PRN GTB ITCHING Last administered on 10/22/18 20:25; Admin Dose 25 MG; Start 10/09/18 at 14:00 Duloxetine HCl (Cymbalta) 30 mg DAILY PO Last administered on 11/16/18 08:25; Admin Dose 30 MG; Start 10/10/18 at 09:00 Gabapentin (Neurontin Liquid) 400 mg Q8 GTB Last administered on 11/16/18 13:07; Admin Dose 400 MG; Start 10/09/18 at 15:30 Hydralazine HCl (Apresoline) 10 mg Q4H PRN IV ELEVATED BLOOD PRESSURE; Start 10/09/18 at 14:00 Hydroxychloroquine Sulfate (Plaquenil) 200 mg BID PO Last administered on 11/16/18 09:51; Admin Dose 200 MG; Start 10/09/18 at 21:00 Diagnostic Test (Pha) (Accu-Chek) 1 ea 02 XX Last administered on 11/15/18 01:23; Admin Dose 1 EA; Start 10/10/18 at 02:00 Insulin Aspart (Novolog Insulin Pen) NOVOLOG *CUSTOM* ALGORITHM Q6H SC Last a dministered on 11/15/18 21:03; Admin Dose 1 UNIT; Start 10/09/18 at 14:00 Lactobacillus Acidophilus (Florajen3 Capsule) 1 each BID GTB Last administered on 11/16/18 08:25; Admin Dose 1 EACH; Start 10/09/18 at 21:00 Lansoprazole (Prevacid) 30 mg BID@,18 GTB Last administered on 11/16/18 05:37; Admin Dose 30 MG; Start 10/09/18 at 18:00 Levetiracetam (Keppra Liquid) 500 mg BID GTB Last administered on 11/16/18 08:22; Admin Dose 500 MG; Start 10/09/18 at 21:00 Magnesium Oxide (Mag-Ox 400) 400 mg BID GTB Last administered on 11/16/18 08:37; Admin Dose 400 MG; Start 10/09/18 at 21:00 Metoclopramide HCl (Reglan) 10 mg TID IV Last administered on 11/16/18 13:06; Admin Dose 10 MG; Start 10/09/18 at 21:00 Miconazole Nitrate (Miconazole 2% Cr) 1 applic BID TOP Last administered on 11/16/18 08:30; Admin Dose 1 APPLIC; Start 10/09/18 at 21:00 Miconazole Nitrate (Miconazole 2% Cr) 1 applic Q12 PRN TOP rash; Start 10/09/18 at 14:00 Ondansetron HCl (Zofran Inj) 4 mg Q4H PRN IV NAUSEA AND/OR VOMITING Last administered on 10/19/18 16:37; Admin Dose 4 MG; Start 10/09/18 at 14:00 Polyethylene Glycol (Miralax) 17 gm DAILY PRN GTB CONSTIPATION; Start 10/09/18 at 14:00 Senna (Senokot) 2 tab Q8 PRN PO CONSTIPATION; Start 10/09/18 at 14:00 Trimethoprim/ Sulfamethoxazole (Bactrim Susp) 40 ml DAILY GTB Last administered on 11/16/18 08:29; Admin Dose 40 ML; Start 10/10/18 at 09:00 Zolpidem Tartrate (Ambien) 5 mg HS PRN PO INSOMNIA Last administered on 11/03/18 01:16; Admin Dose 5 MG; Start 10/09/18 at 14:00 Miscellaneous Information 1 ea NOTE XX ; Start 10/09/18 at 15:00 Glucose (Glutose) 15 gm Q15M PRN PO DECREASED GLUCOSE; Start 10/09/18 at 15:00 Glucose (Glutose) 22.5 gm Q15M PRN PO DECREASED GLUCOSE; Start 10/09/18 at 15:00 Dextrose (D50w Syringe) 25 ml Q15M PRN IV DECREASED GLUCOSE; Start 10/09/18 at 15:00 Dextrose (D50w Syringe) 50 ml Q15M PRN IV DECREASED GLUCOSE; Start 10/09/18 at 15:00 Glucagon (Glucagen) 1 mg Q15M PRN IM DECREASED GLUCOSE; Start 10/09/18 at 15:00 Glucose (Glutose) 15 gm Q15M PRN BUCCAL DECREASED GLUCOSE; Start 10/09/18 at 15:00 Albuterol (Ventolin Hfa) 4 puff Q6H RESP THERAPY INH Last administered on 11/16/18at 14:22; Admin Dose 4 PUFF; Start 10/10/18 at 02:00 Ipratropium [place] (Atrovent Hfa) 4 puff Q6H RESP THERAPY INH Last administered on 11/16/18 14:22; Admin Dose 4 PUFF; Start 10/10/18 at 02:00 Linagliptin (Tradjenta) 5 mg DAILY PO Last administered on 11/16/18 08:29; Admin Dose 5 MG; Start 10/16/18 at 10:30 Quetiapine Fumarate (Seroquel) 100 mg BID GTB Last administered on 11/16/18 08:26; Admin Dose 100 MG; Start 10/21/18 at 21:00 Calcium Carbonate (Ca Carbonate) 1,250 mg QID GTB Last administered on 11/16/18 12:03; Admin Dose 1,250 MG; Start 10/24/18 at 13:00 Metoprolol Tartrate (Lopressor) 5 mg Q4H PRN IV HR>110 Hold SBP<100 Last administered on 11/11/18at 18:31; Admin Dose 5 MG; Start 10/28/18 at 12:30 Phenylephrine HCl 40 mg/Dextrose 250 ml @ 37.5 mls/hr TITRATE IV Last administered on 11/02/18at 09:05; Admin Dose 11.25 MLS/HR; Start 11/01/18 at 13:30 IV Flush (NS 10 ml) 10 ml PRN PRN IV IV PROTOCOL; Start 11/01/18 at 16:30 Collagenase (Santyl) 1 applic DAILY TOP Last administered on 11/16/18 08:22; Admin Dose 1 APPLIC; Start 11/01/18 at 19:30 Norepinephrine 32 mg/Dextrose 250 ml @ 0.47 mls/hr TITRATE IV Last administered on 11/02/18 12:15; Admin Dose 0.47 MLS/HR; Start 11/02/18 at 11:30 Midodrine (Proamatine) 5 mg TID@,,17 GTB Last administered on 11/08/18 12:53; Admin Dose 5 MG; Start 11/03/18 at 09:00; Status Hold Guaifenesin (Robitussin Liquid Cup) 100 mg Q4H PRN PO COUGH Last administered on 11/13/18 17:58; Admin Dose 100 MG; Start 11/03/18 at 12:00 Calcitriol (Rocaltrol) 1.5 mcg BID PO Last administered on 11/16/18 08:26; Admin Dose 1.5 MCG; Start 11/07/18 at 21:00 Lorazepam (Ativan) 1 mg Q4 GTB Last administered on 11/16/18 12:03; Admin Dose 1 MG; Start 11/09/18 at 14:00 Carvedilol (Coreg) 6.25 mg BID PO Last administered on 11/16/18 08:25; Admin Dose 6.25 MG; Start 11/09/18 at 21:00 Benazepril HCl (Lotensin) 10 mg DAILY PO Last administered on 11/16/18 08:24; Admin Dose 10 MG; Start 11/10/18 at 09:00 Digoxin (Digoxin) 0.25 mg DAILY@13 PO Last administered on 11/16/18 12:04; Admin Dose 0.25 MG; Start 11/11/18 at 13:00 Furosemide (Lasix) 20 mg DAILY IV Last administered on 11/15/18 08:58; Admin Dose 20 MG; Start 11/10/18 at 12:30; Status Hold Hydromorphone HCl (Dilaudid) 3 mg Q4H PRN PO MODERATE PAIN LEVEL 7-10 Last administered on 11/16/18 00:38; Admin Dose 3 MG; Start 11/10/18 at 22:00 Cefepime HCl 50 ml @ 100 mls/hr Q12 IVPB Last administered on 11/16/18 08:27; Admin Dose 100 MLS/HR; Start 11/10/18 at 23:30 Fentanyl 100 ml @ 2.5 mls/hr TITRATE IV Last administered on 11/15/18 18:54; Admin Dose 2.5 MLS/HR; Start 11/14/18 at 09:00 Ascorbic Acid (Vitamin C) 250 mg DAILY GTB Last administered on 11/16/18 08:25; Admin Dose 250 MG; Start 11/15/18 at 09:00; Stop 11/29/18 at 09:00 Zinc Sulfate (Zinc Sulfate) 220 mg DAILY GTB Last administered on 11/16/18 08:23; Admin Dose 220 MG; Start 11/15/18 at 09:00; Stop 11/29/18 at 09:00 Miscellaneous Information (*Order Clarification Bulletin) MEDICATION REQUIRES CLARIFICATI... Q8H XX ; Start 11/15/18 at 12:00 Hydrocortisone (Cortef) 15 mg HS PEG Last administered on 11/15/18 20:41; Admin Dose 15 MG; Start 11/15/18 at 21:00 Hydrocortisone (Cortef) 15 mg QAM PEG Last administered on 11/16/18 08:26; Admin Dose 15 MG; Start 11/16/18 at 09:00 Hydrocortisone (Cortef) 15 mg AC DINNER PEG Last administered on 11/15/18 16:57; Admin Dose 15 MG; Start 11/15/18 at 17:05 Acetazolamide (Diamox) 500 mg DAILY IV Last administered on 11/16/18 09:51; Admin Dose 500 MG; Start 11/16/18 at 09:30 Daptomycin 185 mg/ Sodium Chloride 100 ml @ 200 mls/hr Q24H IVPB ; Start 11/16/18 at 16:00; Stop 11/21/18 at 15:59 CAROLYN LANGLEY Nov 16, 2018 15:54
[2018-11-16] MEDS: ENOXAPARIN 30 MG/0.3 ML SYG SC SCH (17:12)
[2018-11-16] MEDS: SOD CHLORIDE 0.9% IVPB SCH (17:58)
[2018-11-16] MEDS: DAPTOMYCIN IVPB SCH (17:58)
[2018-11-16] MEDS: FENTAnyl (DRIP) 1000 mcg/100mL 100 ML IV SCH (22:22)
[2018-11-17] VITALS (36 sets, daily range): BP systolic 83–129; BP diastolic 54–89; PULSE 102–121; RESP 19–38
[2018-11-17] MEDS: LORAZEPAM 1 MG TAB GTB SCH ×6 (01:04→20:24)
[2018-11-17] MEDS: INSULIN ASPART [NOVOLOG] 3 ML PEN SC SCH ×5 (01:13→23:46)
[2018-11-17] MEDS: ACCU-CHEK XX SCH (01:14)
[2018-11-17] MEDS: HYDROmorphONE 2 MG TAB PO PRN (01:47)
[2018-11-17] MEDS: IPRATROPIUM (HFA) 12.9 GM INHALER INH SCH ×4 (02:12→19:41)
[2018-11-17] MEDS: ALBUTEROL HFA 8 GM INHALER INH SCH ×4 (02:12→19:41)
[2018-11-17] MEDS: GABAPENTIN (50 MG/ML PO SYG) GTB SCH ×3 (05:16→21:55)
[2018-11-17] MEDS: LANSOPRAZOLE 30 MG CAP GTB SCH ×2 (05:16→17:55)
--- NOTE | 2018-11-17 08:27 | PN ---
DATE: 11/17/2018 SUBJECTIVE: No events overnight. The patient has excellent urinary output. No other events noted. OBJECTIVE: VITAL SIGNS: Blood pressure is 98/61, pulse 106, temperature 98.1. The patient's I's and O's were r eviewed. HEENT: Head is normocephalic. NECK: Shows trach. HEART: Regular rate. LUNGS: Show diminished breath sounds at the base. ABDOMEN: Soft, nontender to palpation without rebound or guarding. EXTREMITIES: Negative for clubbing, cyanosis. Positive edema, improving. DERMATOLOGIC: No rashes. MUSCULOSKELETAL: No joint effusion. NEUROLOGIC: No change in exam. MEDICATIONS: Reviewed. LABORATORY DATA: Reviewed. The patient's bicarbonate level is 41, sodium 144, BUN 30, creatinine 0. 45. ASSESSMENT AND PLAN: 1. Nonoliguric acute kidney injury with previously normal baseline creatinine. Etiology is secondar y to hemodynamics. Renal function is improved. Continue to monitor. 2. Mixed acid base disorder. The patient has a metabolic alkalosis and compensatory respiratory aci dosis. The patient has been started on Diamox. Bicarbonate levels have improved. We will continue. Monitor electrolytes and renal function closely. 3. Volume overload. Continue current diuretic regimen. 4. Ventilator-dependent respiratory failure. Vent settings and ABG was reviewed. Continue to monit or. 5. Adrenal insufficiency. Continue Cortef. 6. Dysphagia status post PEG. Continue tube feeding. 7. Hypertension. Continue current blood pressure regimen. 8. Hypomagnesemia. Continue to monitor and replete. 9. Mineral bone disorder. Continue vitamin D analogs. 10. Status post shock. 11. Anxiety disorder. Dictated By: UNA ROY DO NR/NTS Conf#: [id number] DID#: [id number] CC: CAMELIA VALENTINE MD; NOLA VIDAL MD;*EndCC*
--- NOTE | 2018-11-17 08:58 | CONS ---
Assessment/Plan Assessment/Plan Assessment/Plan (Daily) Family members were on their way from out of town patient's is in agreement to withdraw care pursue just comfort measures. All family should be arriving in town by Wednesday. I see this patient in palliative care consultation was a 53-year-old gentleman who is in the intensive care unit at [facility]. Patient was admitted on October 09 who is a resident of [facility] after prolonged stay there developed worsening hypoxia transferred to the ICU. Patient has multiple consultants involved with his healthcare but essentially has not significantly improved. Patient has PEG trach is fully awake is able to answer questions and make his decisions for ongoing level of health care. During the intensive care unit he is developed acute kidney injury is tachycardic, cardiomyopathy with an EF of 35-40% past medical history of rheumatoid arthritis pain management syndrome anemia of chronic disease, hypertension functional quadriplegia secondary to what is in the chart documented severe cervical spine cord stenosis with cord compression at C3-C5 status post laminectomy history of febrile myalgia rheumatica and history of VATS procedure on 08/11/2018. Essentially patient is not improving significantly well and is still on 70% FiO2 with 90% sats. He remains critically O I am asked to speak to family members and patient especially about ongoing level of care. Patient was admitted to [facility] ICU on October 28, 2018 Consultation Date/Type/Reason Admit Date/Time Oct 09, 2018 at 12:16 Date/Time of Note DATE: 11/17/18 TIME: 08:56 Past Medical History Medical History: diabetes, hypertension, renal disease, other (COPD, RA, spinal stenosis, neuropathy, cervical myelopathy with cervical radiculopathy, chronic pain syndrome, tracheobronchitis, fibromyalgia, MAC infection, anemia, chronic steroid therapy) Medications Current Medications Acetaminophen (Tylenol Liquid) 650 mg Q4H PRN GTB MILD PAIN(1-3)OR ELEVATED TEMP Last administered on 11/16/18at 12:03; Admin Dose 650 MG; Start 10/09/18 at 14:00 Al Hydrox/Mg Hydrox/Simethicone (Mag-Al Plus) 15 ml Q6H PRN PO GASTROINTESTINAL UPSET Last administered on 10/17/18at 13:18; Admin Dose 15 ML; Start 10/09/18 at 14:00 Eye Lubricant (Artificial Tears Oph) 1 drop Q6H PRN BOTH EYES DRY EYES Last administered on 11/03/18 09:33; Admin Dose 1 DROP; Start 10/09/18 at 14:00 Bisacodyl (Dulcolax Supp) 10 mg DAILY PRN [place] CONSTIPATION; Start 10/09/18 at 14:00 Clonidine (Catapres) 0.1 mg DAILY PRN GTB ELEVATED BLOOD PRESSURE; Start at 14:00 Diltiazem HCl (Cardizem Iv) 5 mg Q4 PRN IV ELEVATED HEART RATE Last administered on 11/06/18 18:47; Admin Dose 5 MG; Start 10/09/18 at 14:00 Diphenhydramine HCl (Benadryl Liquid Cup) 25 mg Q6 PRN GTB ITCHING Last administered on 10/22/18 20:25; Admin Dose 25 MG; Start 10/09/18 at 14:00 Duloxetine HCl (Cymbalta) 30 mg DAILY PO Last administered on 11/16/18 08:25; Admin Dose 30 MG; Start 10/10/18 at 09:00 Gabapentin (Neurontin Liquid) 400 mg Q8 GTB Last administered on 11/17/18 05 :16; Admin Dose 400 MG; Start 10/09/18 at 15:30 Hydralazine HCl (Apresoline) 10 mg Q4H PRN IV ELEVATED BLOOD PRESSURE; Start 10/09/18 at 14:00 Hydroxychloroquine Sulfate (Plaquenil) 200 mg BID PO Last administered on 11/16/18 20:16; Admin Dose 200 MG; Start 10/09/18 at 21:00 Lactobacillus Acidophilus (Florajen3 Capsule) 1 each BID GTB Last administered on 11/16/18 20:15; Admin Dose 1 EACH; Start 10/09/18 at 21:00 Lansoprazole (Prevacid) 30 mg BID@,18 GTB Last administered on 11/17/18 05:16 ; Admin Dose 30 MG; Start 10/09/18 at 18:00 Levetiracetam (Keppra Liquid) 500 mg BID GTB Last administered on 11/16/18 20:15; Admin Dose 500 MG; Start 10/09/18 at 21:00 Magnesium Oxide (Mag-Ox 400) 400 mg BID GTB Last administered on 11/16/18 20:17; Admin Dose 400 MG; Start 10/09/18 at 21:00 Metoclopramide HCl (Reglan) 10 mg TID IV Last administered on 11/16/18 20:16; Admin Dose 10 MG; Start 10/09/18 at 21:00 Miconazole Nitrate (Miconazole 2% Cr) 1 applic BID TOP Last administered on 11/16/18 20:18; Admin Dose 1 APPLIC; Start 10/09/18 at 21:00 Miconazole Nitrate (Miconazole 2% Cr) 1 applic Q12 PRN TOP rash; Start 10/09/18 at 14:00 Ondansetron HCl (Zofran Inj) 4 mg Q4H PRN IV NAUSEA AND/OR VOMITING Last administered on 10/19/18 16:37; Admin Dose 4 MG; Start 10/09/18 at 14:00 Polyethylene Glycol (Miralax) 17 gm DAILY PRN GTB CONSTIPATION; Start 10/09/18 at 14:00 Senna (Senokot) 2 tab Q8 PRN PO CONSTIPATION; Start 10/09/18 at 14:00 Trimethoprim/ Sulfamethoxazole (Bactrim Susp) 40 ml DAILY GTB Last administered on 11/16/18 08:29; Admin Dose 40 ML; Start 10/10/18 at 09:00 Zolpidem Tartrate (Ambien) 5 mg HS PRN PO INSOMNIA Last administered on 11/03/18 01:16; Admin Dose 5 MG; Start 10/09/18 at 14:00 Miscellaneous Information 1 ea NOTE XX ; Start 10/09/18 at 15:00 Glucose (Glutose) 15 gm Q15M PRN PO DECREASED GLUCOSE; Start 10/09/18 at 15:00 Glucose (Glutose) 22.5 gm Q15M PRN PO DECREASED GLUCOSE; Start 10/09/18 at 15:00 Dextrose (D50w Syringe) 25 ml Q15M PRN IV DECREASED GLUCOSE; Start 10/09/18 at 15:00 Dextrose (D50w Syringe) 50 ml Q15M PRN IV DECREASED GLUCOSE; Start 10/09/18 at 15:00 Glucagon (Glucagen) 1 mg Q15M PRN IM DECREASED GLUCOSE; Start 10/09/18 at 15:00 Glucose (Glutose) 15 gm Q15M PRN BUCCAL DECREASED GLUCOSE; Start 10/09/18 at 15:00 Albuterol (Ventolin Hfa) 4 puff Q6H RESP THERAPY INH Last administered on 11/17/18 07:27; Admin Dose 4 PUFF; Start 10/10/18 at 02:00 Ipratropium Powell (Atrovent Hfa) 4 puff Q6H RESP THERAPY INH Last adminis tered on 11/17/18 07:27; Admin Dose 4 PUFF; Start 10/10/18 at 02:00 Linagliptin (Tradjenta) 5 mg DAILY PO Last administered on 11/16/18 08:29; Admin Dose 5 MG; Start 10/16/18 at 10:30 Quetiapine Fumarate (Seroquel) 100 mg BID GTB Last administered on 11/16/18 20:17; Admin Dose 100 MG; Start 10/21/18 at 21:00 Calcium Carbonate (Ca Carbonate) 1,250 mg QID GTB Last administered on 11/16/18 20:15; Admin Dose 1,250 MG; Start 10/24/18 at 13:00 Metoprolol Tartrate (Lopressor) 5 mg Q4H PRN IV HR>110 Hold SBP<100 Last administered on 11/11/18 18:31; Admin Dose 5 MG; Start 10/28/18 at 12:30 Phenylephrine HCl 40 mg/Dextrose 250 ml @ 37.5 mls/hr TITRATE IV Last administered on 11/02/18 09:05; Admin Dose 11.25 MLS/HR; Start 11/01/18 at 13:30 IV Flush (NS 10 ml) 10 ml PRN PRN IV IV PROTOCOL; Start 11/01/18 at 16:30 Collagenase (Santyl) 1 applic DAILY TOP Last administered on 11/16/18 08:22; Ad min Dose 1 APPLIC; Start 11/01/18 at 19:30 Norepinephrine 32 mg/Dextrose 250 ml @ 0.47 mls/hr TITRATE IV Last administered on 11/02/18 12:15; Admin Dose 0.47 MLS/HR; Start 11/02/18 at 11:30 Midodrine (Proamatine) 5 mg TID@,,17 GTB Last administered on 11/08/18 12:53; Admin Dose 5 MG; Start 11/03/18 at 09:00; Status Hold Guaifenesin (Robitussin Liquid Cup) 100 mg Q4H PRN PO COUGH Last administered on 11/13/18 17:58; Admin Dose 100 MG; Start 11/03/18 at 12:00 Calcitriol (Rocaltrol) 1.5 mcg BID PO Last administered on 11/16/18 20:16; Admin Dose 1.5 MCG; Start 11/07/18 at 21:00 Lorazepam (Ativan) 1 mg Q4 GTB Last administered on 11/17/18 05:15; Admin Dose 1 MG; Start 11/09/18 at 14:00 Carvedilol (Coreg) 6.25 mg BID PO Last administered on 11/16/18 20:16; Admin Dose 6.25 MG; Start 11/09/18 at 21:00 Benazepril HCl (Lotensin) 10 mg DAILY PO Last administered on 11/16/18 08:24; A dmin Dose 10 MG; Start 11/10/18 at 09:00 Digoxin (Digoxin) 0.25 mg DAILY@13 PO Last administered on 11/16/18 12:04; Admin Dose 0.25 MG; Start 11/11/18 at 13:00 Furosemide (Lasix) 20 mg DAILY IV Last administered on 11/15/18 08:58; Admin Dose 20 MG; Start 11/10/18 at 12:30; Status Hold Hydromorphone HCl (Dilaudid) 3 mg Q4H PRN PO MODERATE PAIN LEVEL 7-10 Last administered on 11/17/18 01:47; Admin Dose 3 MG; Start 11/10/18 at 22:00 Cefepime HCl 50 ml @ 100 mls/hr Q12 IVPB Last administered on 11/16/18 20:22; Admin Dose 100 MLS/HR; Start 11/10/18 at 23:30 Fentanyl 100 ml @ 2.5 mls/hr TITRATE IV Last administered on 11/16/18 22:22; Admin Dose 5 MLS/HR; Start 11/14/18 at 09:00 Ascorbic Acid (Vitamin C) 250 mg DAILY GTB Last administered on 11/16/18 08:25; Admin Dose 250 MG; Start 11/15/18 at 09:00; Stop 11/29/18 at 09:00 Zinc Sulfate (Zinc Sulfate) 220 mg DAILY GTB Last administered on 11/16/18 08:23; Admin Dose 220 MG; Start 11/15/18 at 09:00; Stop 11/29/18 at 09:00 Miscellaneous Information (*Order Clarification Bulletin) MEDICATION REQUIRES CLARIFICATI... Q8H XX ; Start 11/15/18 at 12:00 Hydrocortisone (Cortef) 15 mg HS PEG Last administered on 11/16/18at 20:16; Admin Dose 15 MG; Start 11/15/18 at 21:00 Hydrocortisone (Cortef) 15 mg QAM PEG Last administered on 11/16/18 08:26; Admin Dose 15 MG; Start 11/16/18 at 09:00 Hydrocortisone (Cortef) 15 mg AC DINNER PEG Last administered on 11/16/18at 17:09; Admin Dose 15 MG; Start 11/15/18 at 17:05 Acetazolamide (Diamox) 500 mg DAILY IV Last administered on 11/16/18at 09:51; Admin Dose 500 MG; Start 11/16/18 at 09:30 Daptomycin 185 mg/ Sodium Chloride 100 ml @ 200 mls/hr Q24H IVPB Last administered on 11/16/18 17:58; Admin Dose 200 MLS/HR; Start 11/16/18 at 16:00; Stop 11/21/18 at 15:59 Enoxaparin Sodium (Lovenox) 30 mg DAILY SC Last administered on 11/16/18at 17:12; Admin Dose 30 MG; Start 11/16/18 at 16:00 Insulin Aspart (Novolog Insulin Pen) NOVOLOG *CUSTOM* ALGORITHM Q6 SC ; Start 11/17/18 at 12:00 Allergies: Coded Allergies: No Known Allergy (Unverified , 11/03/18) Past Surgical History Past Surgical Hx: other Social History Alcohol Use: none Smoking Status: Never smoker Drug Use: none Exam/Review of Systems Exam Vitals Vital Signs Date Temp Pulse Resp B/P (MAP) Pulse Ox O2 O2 Flow FiO2 Time Delivery Rate 11/17/18 106 19 98/61 (73) 97 Mechanical 06:00 Ventilator 11/17/18 85 04:54 11/17/18 99.4 04:00 Intake and Output 411/16/18 11/17/18 1515:00 23:00 07:00 IntakeIntake Total 445.06 ml 592.5 ml 445.5 ml OutputOutput Total 550 ml 400 ml 325 ml BalanceBalance -104.94 ml 192.5 ml 120.5 ml Constitutional: distress, frail Neck: supple, non-tender Respiratory: clear to auscultation, normal air movement; No congested cough, No crackles/rales, No diminished breath sounds, No intercostal retraction, No labored breathing, No respirations, No tactile fremitus, No wheezing, No other Neurological: confused, lethargic Results Result Diagram: 11/17/18 0426 11/17/18 0400 Results 24hrs Laboratory Tests Test 11/16/18 09:48 11/16/18 12:22 11/16/18 13:06 11/16/18 20:23 White Blood Count 15.0 H Red Blood Count 2.57 L Hemoglobin 7.3 L Hematocrit 24.9 L Mean Corpuscular Volume 96.9 Mean Corpuscular 28.4 L Hemoglobin Mean Corpuscular 29.3 L Hemoglobin Concent Red Cell Distribution 16.0 H Width Platelet Count 406 Mean Platelet Volume 10.3 Immature Granulocytes % 2.100 H Neutrophils % 63.3 Lymphocytes % 6.6 L Monocytes % 10.7 Eosinophils % 16.6 H Basophils % 0.7 Nucleated Red Blood 0.0 Cells % Immature Granulocytes # 0.310 H Neutrophils # 9.5 H Lymphocytes # 1.0 Monocytes # 1.6 H Eosinophils # 2.5 H Basophils # 0.1 Nucleated Red Blood 0.0 Cells # Digoxin Level 1.6 Bedside Glucose 140 124 Test 11/17/18 01:03 11/17/18 04:00 11/17/18 04:26 Bedside Glucose 154 Sodium Level 144 Potassium Level 4.0 Chloride Level 99 Carbon Dioxide Level 41 *H Anion Gap 4 L Blood Urea Nitrogen 30 H Creatinine 0.45 L Est Glomerular Filtrat > 60 Rate mL/min Glucose Level 111 Calcium Level 8.0 L Phosphorus Level 3.8 Magnesium Level 2.2 White Blood Count 13.4 H Red Blood Count 2.62 L Hemoglobin 7.3 L Hematocrit 25.8 L Mean Corpuscular Volume 98.5 Mean Corpuscular 27.9 L Hemoglobin Mean Corpuscular 28.3 L Hemoglobin Concent Red Cell Distribution 16.1 H Width Platelet Count 442 H Mean Platelet Volume 10.9 H Immature Granulocytes % 3.100 H Neutrophils % 64.3 Lymphocytes % 6.3 L Monocytes % 11.0 Eosinophils % 14.3 H Basophils % 1.0 Nucleated Red Blood 0.0 Cells % Immature Granulocytes # 0.410 H Neutrophils # 8.6 H Lymphocytes # 0.8 Monocytes # 1.5 H Eosinophils # 1.9 H Basophils # 0.1 Nucleated Red Blood 0.0 Cells # Medications Medication Current Medications Acetaminophen (Tylenol Liquid) 650 mg Q4H PRN GTB MILD PAIN(1-3)OR ELEVATED TEMP Last administered on 11/16/18 12:03; Admin Dose 650 MG; Start 10/09/18 at 14:00 Al Hydrox/Mg Hydrox/Simethicone (Mag-Al Plus) 15 ml Q6H PRN PO GASTROINTESTINAL UPSET Last administered on 10/17/18 13:18; Admin Dose 15 ML; Start 10/09/18 at 14:00 Eye Lubricant (Artificial Tears Oph) 1 drop Q6H PRN BOTH EYES DRY EYES Last administered on 11/03/18 09:33; Admin Dose 1 DROP; Start 10/09/18 at 14:00 Bisacodyl (Dulcolax Supp) 10 mg DAILY PRN [place] CONSTIPATION; Start 10/09/18 at 14:00 Clonidine (Catapres) 0.1 mg DAILY PRN GTB ELEVATED BLOOD PRESSURE; Start 10/09/18 at 14:00 Diltiazem HCl (Cardizem Iv) 5 mg Q4 PRN IV ELEVATED HEART RATE Last administered on 11/06/18 18:47; Admin Dose 5 MG; Start 10/09/18 at 14:00 Diphenhydramine HCl (Benadryl Liquid Cup) 25 mg Q6 PRN GTB ITCHING Last administered on 10/22/18 20:25; Admin Dose 25 MG; Start 10/09/18 at 14:00 Duloxetine HCl (Cymbalta) 30 mg DAILY PO Last administered on 11/16/18 08:25; Admin Dose 30 MG; Start 10/10/18 at 09:00 Gabapentin (Neurontin Liquid) 400 mg Q8 GTB Last administered on 11/17/18 05:16; Admin Dose 400 MG; Start 10/09/18 at 15:30 Hydralazine HCl (Apresoline) 10 mg Q4H PRN IV ELEVATED BLOOD PRESSURE; Start 10/09/18 at 14:00 Hydroxychloroquine Sulfate (Plaquenil) 200 mg BID PO Last administered on 11/16/18 20:16; Admin Dose 200 MG; Start 10/09/18 at 21:00 Lactobacillus Acidophilus (Florajen3 Capsule) 1 each BID GTB Last administered on 11/16/18 20:15; Admin Dose 1 EACH; Start 10/09/18 at 21:00 Lansoprazole (Prevacid) 30 mg BID@,18 GTB Last administered on 11/17/18 05:16; Admin Dose 30 MG; Start 10/09/18 at 18:00 Levetiracetam (Keppra Liquid) 500 mg BID GTB Last administered on 11/16/18 20:15; Admin Dose 500 MG; Start 10/09/18 at 21:00 Magnesium Oxide (Mag-Ox 400) 400 mg BID GTB Last administered on 11/16/18 20:1 7; Admin Dose 400 MG; Start 10/09/18 at 21:00 Metoclopramide HCl (Reglan) 10 mg TID IV Last administered on 11/16/18 20:16; Admin Dose 10 MG; Start 10/09/18 at 21:00 Miconazole Nitrate (Miconazole 2% Cr) 1 applic BID TOP Last administered on 11/16/18 20:18; Admin Dose 1 APPLIC; Start 10/09/18 at 21:00 Miconazole Nitrate (Miconazole 2% Cr) 1 applic Q12 PRN TOP rash; Start 10/09/18 at 14:00 Ondansetron HCl (Zofran Inj) 4 mg Q4H PRN IV NAUSEA AND/OR VOMITING Last administered on 10/19/18 16:37; Admin Dose 4 MG; Start 10/09/18 at 14:00 Polyethylene Glycol (Miralax) 17 gm DAILY PRN GTB CONSTIPATION; Start 10/09/18 at 14:00 Senna (Senokot) 2 tab Q8 PRN PO CONSTIPATION; Start 10/09/18 at 14:00 Trimethoprim/ Sulfamethoxazole (Bactrim Susp) 40 ml DAILY GTB Last administered on 11/16/18 08:29; Admin Dose 40 ML; Start 10/10/18 at 09:00 Zolpidem Tartrate (Ambien) 5 mg HS PRN PO INSOMNIA Last administered on 11/03/18 01:16; Admin Dose 5 MG; Start 10/09/18 at 14:00 Miscellaneous Information 1 ea NOTE XX ; Start 10/09/18 at 15:00 Glucose (Glutose) 15 gm Q15M PRN PO DECREASED GLUCOSE; Start 10/09/18 at 15:00 Glucose (Glutose) 22.5 gm Q15M PRN PO DECREASED GLUCOSE; Start 10/09/18 at 15:0 0 Dextrose (D50w Syringe) 25 ml Q15M PRN IV DECREASED GLUCOSE; Start 10/09/18 at 15:00 Dextrose (D50w Syringe) 50 ml Q15M PRN IV DECREASED GLUCOSE; Start 10/09/18 at 15:00 Glucagon (Glucagen) 1 mg Q15M PRN IM DECREASED GLUCOSE; Start 10/09/18 at 15:00 Glucose (Glutose) 15 gm Q15M PRN BUCCAL DECREASED GLUCOSE; Start 10/09/18 at 15:00 Albuterol (Ventolin Hfa) 4 puff Q6H RESP THERAPY INH Last administered on 11/17/18 07:27; Admin Dose 4 PUFF; Start 10/10/18 at 02:00 Ipratropium Powell (Atrovent Hfa) 4 puff Q6H RESP THERAPY INH Last administered on 11/17/18 07:27; Admin Dose 4 PUFF; Start 10/10/18 at 02:00 Linagliptin (Tradjenta) 5 mg DAILY PO Last administered on 11/16/18 08:29; Admin Dose 5 MG; Start 10/16/18 at 10:30 Quetiapine Fumarate (Seroquel) 100 mg BID GTB Last administered on 11/16/18 20:17; Admin Dose 100 MG; Start 10/21/18 at 21:00 Calcium Carbonate (Ca Carbonate) 1,250 mg QID GTB Last administered on 11/16/18 20:15; Admin Dose 1,250 MG; Start 10/24/18 at 13:00 Metoprolol Tartrate (Lopressor) 5 mg Q4H PRN IV HR>110 Hold SBP<100 Last administered on 11/11/18 18:31; Admin Dose 5 MG; Start 10/28/18 at 12:30 Phenylephrine HCl 40 mg/Dextrose 250 ml @ 37.5 mls/hr TITRATE IV Last administered on 11/02/18 09:05; Admin Dose 11.25 MLS/HR; Start 11/01/18 at 13:30 IV Flush (NS 10 ml) 10 ml PRN PRN IV IV PROTOCOL; Start 11/01/18 at 16:30 Collagenase (Santyl) 1 applic DAILY TOP Last administered on 11/16/18 08:22; Admin Dose 1 APPLIC; Start 11/01/18 at 19:30 Norepinephrine 32 mg/Dextrose 250 ml @ 0.47 mls/hr TITRATE IV Last administered on 11/02/18 12:15; Admin Dose 0.47 MLS/HR; Start 11/02/18 at 11:30 Midodrine (Proamatine) 5 mg TID@09,13,17 GTB Last administered on 11/08/18 12:53; Admin Dose 5 MG; Start 11/03/18 at 09:00; Status Hold Guaifenesin (Robitussin Liquid Cup) 100 mg Q4H PRN PO COUGH Last administered on 11/13/18 17:58; Admin Dose 100 MG; Start 11/03/18 at 12:00 Calcitriol (Rocaltrol) 1.5 mcg BID PO Last administered on 11/16/18 20:16; Admin Dose 1.5 MCG; Start 11/07/18 at 21:00 Lorazepam (Ativan) 1 mg Q4 GTB Last administered on 11/17/18 05:15; Admin Dose 1 MG; Start 11/09/18 at 14:00 Carvedilol (Coreg) 6.25 mg BID PO Last administered on 11/16/18 20:16; Admin Dose 6.25 MG; Start 11/09/18 at 21:00 Benazepril HCl (Lotensin) 10 mg DAILY PO Last administered on 11/16/18 08:24; Admin Dose 10 MG; Start 11/10/18 at 09:00 Digoxin (Digoxin) 0.25 mg DAILY@13 PO Last administered on 11/16/18 12:04; Admin Dose 0.25 MG; Start 11/11/18 at 13:00 Furosemide (Lasix) 20 mg DAILY IV Last administered on 11/15/18 08:58; Admin Dose 20 MG; Start 11/10/18 at 12:30; Status Hold Hydromorphone HCl (Dilaudid) 3 mg Q4H PRN PO MODERATE PAIN LEVEL 7-10 Last administered on 11/17/18 01:47; Admin Dose 3 MG; Start 11/10/18 at 22:00 Cefepime HCl 50 ml @ 100 mls/hr Q12 IVPB Last administered on 11/16/18 20:22; Admin Dose 100 MLS/HR; Start 11/10/18 at 23:30 Fentanyl 100 ml @ 2.5 mls/hr TITRATE IV Last administered on 11/16/18 22:22; Admin Dose 5 MLS/HR; Start 11/14/18 at 09:00 Ascorbic Acid (Vitamin C) 250 mg DAILY GTB Last administered on 11/16/18 08:25; Admin Dose 250 MG; Start 11/15/18 at 09:00; Stop 11/29/18 at 09:00 Zinc Sulfate (Zinc Sulfate) 220 mg DAILY GTB Last administered on 11/16/18 08:23; Admin Dose 220 MG; Start 11/15/18 at 09:00; Stop 11/29/18 at 09:00 Miscellaneous Information (*Order Clarification Bulletin) MEDICATION REQUIRES CLARIFICATI... Q8H XX ; Start 11/15/18 at 12:00 Hydrocortisone (Cortef) 15 mg HS PEG Last administered on 11/16/18 20:16; Admin Dose 15 MG; Start 11/15/18 at 21:00 Hydrocortisone (Cortef) 15 mg QAM PEG Last administered on 11/16/18 08:26; Admin Dose 15 MG; Start 11/16/18 at 09:00 Hydrocortisone (Cortef) 15 mg AC DINNER PEG Last administered on 11/16/18 17:09; Admin Dose 15 MG; Start 11/15/18 at 17:05 Acetazolamide (Diamox) 500 mg DAILY IV Last administered on 11/16/18 09:51; Adm in Dose 500 MG; Start 11/16/18 at 09:30 Daptomycin 185 mg/ Sodium Chloride 100 ml @ 200 mls/hr Q24H IVPB Last administered on 4/3/19at 17:58; Admin Dose 200 MLS/HR; Start 11/16/18 at 16:00; Stop 11/21/18 at 15:59 Enoxaparin Sodium (Lovenox) 30 mg DAILY SC Last administered on 11/16/18at 17:12; Admin Dose 30 MG; Start 11/16/18 at 16:00 Insulin Aspart (Novolog Insulin Pen) NOVOLOG *CUSTOM* ALGORITHM Q6 SC ; Start 11/17/18 at 12:00 RENATO GAMBOA Nov 17, 2018 08:58
--- NOTE | 2018-11-17 09:13 | CONS ---
Assessment/Plan Assessment/Plan Assessment/Plan (Daily) Open nursing staff that patient's daughter was to be in May. The initial hope was that he would survive until that time, now the when he has been moved up until 28 November, however I will speak to patient's today and asked him they can move it up even closer. Concern is that he may not live until that time. Consultation Date/Type/Reason Admit Date/Time Oct 09, 2018 at 12:16 Date/Time of Note DATE: 11/17/18 TIME: 09:12 Past Medical History Medical History: diabetes, hypertension, renal disease, other (COPD, RA, spinal stenosis, neuropathy, cervical myelopathy with cervical radiculopathy, chronic pain syndrome, tracheobronchitis, fibromyalgia, MAC infection, anemia, chronic steroid therapy) Medications Current Medications Acetaminophen (Tylenol Liquid) 650 mg Q4H PRN GTB MILD PAIN(1-3)OR ELEVATED TEMP Last administered on 11/16/18at 12:03; Admin Dose 650 MG; Start 10/09/18 at 14:00 Al Hydrox/Mg Hydrox/Simethicone (Mag-Al Plus) 15 ml Q6H PRN PO GASTROINTESTINAL UPSET Last administered on 10/17/18at 13:18; Admin Dose 15 ML; Start 10/09/18 at 14:00 Eye Lubricant (Artificial Tears Oph) 1 drop Q6H PRN BOTH EYES DRY EYES Last administered on 11/03/18at 09:33; Admin Dose 1 DROP; Start 10/09/18 at 14:00 Bisacodyl (Dulcolax Supp) 10 mg DAILY PRN NC CONSTIPATION; Start 10/09/18 at 14:00 Clonidine (Catapres) 0.1 mg DAILY PRN GTB ELEVATED BLOOD PRESSURE; Start 10/09/18 at 14:00 Diltiazem HCl (Cardizem Iv) 5 mg Q4 PRN IV ELEVATED HEART RATE Last administered on 11/06/18at 18:47; Admin Dose 5 MG; Start 10/09/18 at 14:00 Diphenhydramine HCl (Benadryl Liquid Cup) 25 mg Q6 PRN GTB ITCHING Last administered on 10/22/18at 20:25; Admin Dose 25 MG; Start 10/09/18 at 14:00 Duloxetine HCl (Cymbalta) 30 mg DAILY PO Last administered on 11/16/18 08:25; Admin Dose 30 MG; Start 10/10/18 at 09:00 Gabapentin (Neurontin Liquid) 400 mg Q8 GTB Last administered on 11/17/18 05:16; Admin Dose 400 MG; Start 10/09/18 at 15:30 Hydralazine HCl (Apresoline) 10 mg Q4H PRN IV ELEVATED BLOOD PRESSURE; Start 10/09/18 at 14:00 Hydroxychloroquine Sulfate (Plaquenil) 200 mg BID PO Last administered on 11/16/18 20:16; Admin Dose 200 MG; Start 10/09/18 at 21:00 Lactobacillus Acidophilus (Florajen3 Capsule) 1 each BID GTB Last administered on 11/16/18 20:15; Admin Dose 1 EACH; Start 10/09/18 at 21:00 Lansoprazole (Prevacid) 30 mg BID@,18 GTB Last administered on 11/17/18 05:16; Admin Dose 30 MG; Start 10/09/18 at 18:00 Levetiracetam (Keppra Liquid) 500 mg BID GTB Last administered on 11/16/18 20:15; Admin Dose 500 MG; Start 10/09/18 at 21:00 Magnesium Oxide (Mag-Ox 400) 400 mg BID GTB Last administered on 11/16/18 20:17; Admin Dose 400 MG; Start 10/09/18 at 21:00 Metoclopramide HCl (Reglan) 10 mg TID IV Last administered on 11/16/18 20:16; Admin Dose 10 MG; Start 10/09/18 at 21:00 Miconazole Nitrate (Miconazole 2% Cr) 1 applic BID TOP Last administered on 11/16/18 20:18; Admin Dose 1 APPLIC; Start 10/09/18 at 21:00 Miconazole Nitrate (Miconazole 2% Cr) 1 applic Q12 PRN TOP rash; Start 10/09/18 at 14:00 Ondansetron HCl (Zofran Inj) 4 mg Q4H PRN IV NAUSEA AND/OR VOMITING Last administered on 10/19/18 16:37; Admin Dose 4 MG; Start 10/09/18 at 14:00 Polyethylene Glycol (Miralax) 17 gm DAILY PRN GTB CONSTIPATION; Start 10/09/18 at 14:00 Senna (Senokot) 2 tab Q8 PRN PO CONSTIPATION; Start 10/09/18 at 14:00 Trimethoprim/ Sulfamethoxazole (Bactrim Susp) 40 ml DAILY GTB Last administered on 11/16/18at 08:29; Admin Dose 40 ML; Start 10/10/18 at 09:00 Zolpidem Tartrate (Ambien) 5 mg HS PRN PO INSOMNIA Last administered on 11/03/18at 01:16; Admin Dose 5 MG; Start 10/09/18 at 14:00 Miscellaneous Information 1 ea NOTE XX ; Start 10/09/18 at 15:00 Glucose (Glutose) 15 gm Q15M PRN PO DECREASED GLUCOSE; Start 10/09/18 at 15:00 Glucose (Glutose) 22.5 gm Q15M PRN PO DECREASED GLUCOSE; Start 10/09/18 at 15:00 Dextrose (D50w Syringe) 25 ml Q15M PRN IV DECREASED GLUCOSE; Start 10/09/18 at 15:00 Dextrose (D50w Syringe) 50 ml Q15M PRN IV DECREASED GLUCOSE; Start 10/09/18 at 15:00 Glucagon (Glucagen) 1 mg Q15M PRN IM DECREASED GLUCOSE; Start 10/09/18 at 15:00 Glucose (Glutose) 15 gm Q15M PRN BUCCAL DECREASED GLUCOSE; Start 10/09/18 at 15:00 Albuterol (Ventolin Hfa) 4 puff Q6H RESP THERAPY INH Last administered on 11/17/18 07:27; Admin Dose 4 PUFF; Start 10/10/18 at 02:00 Ipratropium [place] (Atrovent Hfa) 4 puff Q6H RESP THERAPY INH Last administered on 11/17/18 07:27; Admin Dose 4 PUFF; Start 10/10/18 at 02:00 Linagliptin (Tradjenta) 5 mg DAILY PO Last administered on 11/16/18at 08:29; Admin Dose 5 MG; Start 10/16/18 at 10:30 Quetiapine Fumarate (Seroquel) 100 mg BID GTB Last administered on 11/16/18at 20:17; Admin Dose 100 MG; Start 10/21/18 at 21:00 Calcium Carbonate (Ca Carbonate) 1,250 mg QID GTB Last administered on 11/16/18 20:15; Admin Dose 1,250 MG; Start 10/24/18 at 13:00 Metoprolol Tartrate (Lopressor) 5 mg Q4H PRN IV HR>110 Hold SBP<100 Last administered on 11/11/18 18:31; Admin Dose 5 MG; Start 10/28/18 at 12:30 Phenylephrine HCl 40 mg/Dextrose 250 ml @ 37.5 mls/hr TITRATE IV Last administered on 11/02/18 09:05; Admin Dose 11.25 MLS/HR; Start 11/01/18 at 13:30 IV Flush (NS 10 ml) 10 ml PRN PRN IV IV PROTOCOL; Start 11/01/18 at 16:30 Collagenase (Santyl) 1 applic DAILY TOP Last administered on 11/16/18 08:22; Admin Dose 1 APPLIC; Start 11/01/18 at 19:30 Norepinephrine 32 mg/Dextrose 250 ml @ 0.47 mls/hr TITRATE IV Last administered on 11/02/18 12:15; Admin Dose 0.47 MLS/HR; Start 11/02/18 at 11:30 Midodrine (Proamatine) 5 mg TID@09,13,17 GTB Last administered on 11/08/18 12:53; Admin Dose 5 MG; Start 11/03/18 at 09:00; Status Hold Guaifenesin (Robitussin Liquid Cup) 100 mg Q4H PRN PO COUGH Last administered on 11/13/18 17:58; Admin Dose 100 MG; Start 11/03/18 at 12:00 Calcitriol (Rocaltrol) 1.5 mcg BID PO Last administered on 11/16/18 20:16; Admin Dose 1.5 MCG; Start 11/07/18 at 21:00 Lorazepam (Ativan) 1 mg Q4 GTB Last administered on 11/17/18 05:15; Admin Dose 1 MG; Start 11/09/18 at 14:00 Carvedilol (Coreg) 6.25 mg BID PO Last administered on 11/16/18 20:16; Admin Dose 6.25 MG; Start 11/09/18 at 21:00 Benazepril HCl (Lotensin) 10 mg DAILY PO Last administered on 11/16/18 08:24; Admin Dose 10 MG; Start 11/10/18 at 09:00 Digoxin (Digoxin) 0.25 mg DAILY@13 PO Last administered on 11/16/18 12:04; Admin Dose 0.25 MG; Start 11/11/18 at 13:00 Furosemide (Lasix) 20 mg DAILY IV Last administered on 11/15/18 08:58; Admin Dose 20 MG; Start 11/10/18 at 12:30; Status Hold Hydromorphone HCl (Dilaudid) 3 mg Q4H PRN PO MODERATE PAIN LEVEL 7-10 Last administered on 11/17/18 01:47; Admin Dose 3 MG; Start 11/10/18 at 22:00 Cefepime HCl 50 ml @ 100 mls/hr Q12 IVPB Last administered on 11/16/18 20:22; Admin Dose 100 MLS/HR; Start 11/10/18 at 23:30 Fentanyl 100 ml @ 2.5 mls/hr TITRATE IV Last administered on 11/16/18 22:22; Admin Dose 5 MLS/HR; Start 11/14/18 at 09:00 Ascorbic Acid (Vitamin C) 250 mg DAILY GTB Last administered on 11/16/18 08:25; Admin Dose 250 MG; Start 11/15/18 at 09:00; Stop 11/29/18 at 09:00 Zinc Sulfate (Zinc Sulfate) 220 mg DAILY GTB Last administered on 11/16/18 08:23; Admin Dose 220 MG; Start 11/15/18 at 09:00; Stop 11/29/18 at 09:00 Miscellaneous Information (*Order Clarification Bulletin) MEDICATION REQUIRES CLARIFICATI... Q8H XX ; Start 11/15/18 at 12:00 Hydrocortisone (Cortef) 15 mg HS PEG Last administered on 11/16/18 20:16; Admin Dose 15 MG; Start 11/15/18 at 21:00 Hydrocortisone (Cortef) 15 mg QAM PEG Last administered on 11/16/18 08:26; Admin Dose 15 MG; Start 11/16/18 at 09:00 Hydrocortisone (Cortef) 15 mg AC DINNER PEG Last administered on 11/16/18 17:09; Admin Dose 15 MG; Start 11/15/18 at 17:05 Acetazolamide (Diamox) 500 mg DAILY IV Last administered on 11/16/18at 09:51; Admin Dose 500 MG; Start 11/16/18 at 09:30 Daptomycin 185 mg/ Sodium Chloride 100 ml @ 200 mls/hr Q24H IVPB Last administered on 11/16/18at 17:58; Admin Dose 200 MLS/HR; Start 11/16/18 at 16:00; Stop 11/21/18 at 15:59 Enoxaparin Sodium (Lovenox) 30 mg DAILY SC Last administered on 11/16/18at 17:12; Admin Dose 30 MG; Start 11/16/18 at 16:00 Insulin Aspart (Novolog Insulin Pen) NOVOLOG *CUSTOM* ALGORITHM Q6 SC ; Start 11/17/18 at 12:00 Allergies: Coded Allergies: No Known Allergy (Unverified , 11/03/18) Past Surgical History Past Surgical Hx: other Social History Alcohol Use: none Smoking Status: Never smoker Drug Use: none Exam/Review of Systems Exam Vitals Vital Signs Date Temp Pulse Resp B/P (MAP) Pulse Ox O2 O2 Flow FiO2 Time Delivery Rate 11/17/18 106 19 98/61 (73) 97 Mechanical 06:00 Ventilator 11/17/18 85 04:54 11/17/18 99.4 04:00 Intake and Output 11/16/18 11/16/18 11/17/18 1515:00 23:00 07:00 IntakeIntake Total 445.06 ml 592.5 ml 445.5 ml OutputOutput Total 550 ml 400 ml 325 ml BalanceBalance -104.94 ml 192.5 ml 120.5 ml Results Result Diagram: 11/17/18 0426 11/17/18 0400 Results 24hrs Laboratory Tests Test 11/16/18 09:48 11/16/18 12:22 11/16/18 13:06 11/16/18 20:23 White Blood Count 15.0 H Red Blood Count 2.57 L Hemoglobin 7.3 L Hematocrit 24.9 L Mean Corpuscular Volume 96.9 Mean Corpuscular 28.4 L Hemoglobin Mean Corpuscular 29.3 L Hemoglobin Concent Red Cell Distribution 16.0 H Width Platelet Count 406 Mean Platelet Volume 10.3 Immature Granulocytes % 2.100 H Neutrophils % 63.3 Lymphocytes % 6.6 L Monocytes % 10.7 Eosinophils % 16.6 H Basophils % 0.7 Nucleated Red Blood 0.0 Cells % Immature Granulocytes # 0.310 H Neutrophils # 9.5 H Lymphocytes # 1.0 Monocytes # 1.6 H Eosinophils # 2.5 H Basophils # 0.1 Nucleated Red Blood 0.0 Cells # Digoxin Level 1.6 Bedside Glucose 140 124 Test 11/17/18 01:03 11/17/18 04:00 11/17/18 04:26 Bedside Glucose 154 Sodium Level 144 Potassium Level 4.0 Chloride Level 99 Carbon Dioxide Level 41 *H Anion Gap 4 L Blood Urea Nitrogen 30 H Creatinine 0.45 L Est Glomerular Filtrat > 60 Rate mL/min Glucose Level 111 Calcium Level 8.0 L Phosphorus Level 3.8 Magnesium Level 2.2 White Blood Count 13.4 H Red Blood Count 2.62 L Hemoglobin 7.3 L Hematocrit 25.8 L Mean Corpuscular Volume 98.5 Mean Corpuscular 27.9 L Hemoglobin Mean Corpuscular 28.3 L Hemoglobin Concent Red Cell Distribution 16.1 H Width Platelet Count 442 H Mean Platelet Volume 10.9 H Immature Granulocytes % 3.100 H Neutrophils % 64.3 Lymphocytes % 6.3 L Monocytes % 11.0 Eosinophils % 14.3 H Basophils % 1.0 Nucleated Red Blood 0.0 Cells % Immature Granulocytes # 0.410 H Neutrophils # 8.6 H Lymphocytes # 0.8 Monocytes # 1.5 H Eosinophils # 1.9 H Basophils # 0.1 Nucleated Red Blood 0.0 Cells # Medications Medication Current Medications Acetaminophen (Tylenol Liquid) 650 mg Q4H PRN GTB MILD PAIN(1-3)OR ELEVATED TEMP Last administered on 11/16/18at 12:03; Admin Dose 650 MG; Start 10/09/18 at 14:00 Al Hydrox/Mg Hydrox/Simethicone (Mag-Al Plus) 15 ml Q6H PRN PO GASTROINTESTINAL UPSET Last administered on 10/17/18 13:18; Admin Dose 15 ML; Start 10/09/18 at 14:00 Eye Lubricant (Artificial Tears Oph) 1 drop Q6H PRN BOTH EYES DRY EYES Last administered on 11/03/18 09:33; Admin Dose 1 DROP; Start 10/09/18 at 14:00 Bisacodyl (Dulcolax Supp) 10 mg DAILY PRN NC CONSTIPATION; Start 10/09/18 at 14:00 Clonidine (Catapres) 0.1 mg DAILY PRN GTB ELEVATED BLOOD PRESSURE; Start 10/09/18 at 14:00 Diltiazem HCl (Cardizem Iv) 5 mg Q4 PRN IV ELEVATED HEART RATE Last administered on 11/06/18 18:47; Admin Dose 5 MG; Start 10/09/18 at 14:00 Diphenhydramine HCl (Benadryl Liquid Cup) 25 mg Q6 PRN GTB ITCHING Last administered on 10/22/18 20:25; Admin Dose 25 MG; Start 10/09/18 at 14:00 Duloxetine HCl (Cymbalta) 30 mg DAILY PO Last administered on 11/16/18 08:25; Admin Dose 30 MG; Start 10/10/18 at 09:00 Gabapentin (Neurontin Liquid) 400 mg Q8 GTB Last administered on 11/17/18 05:16; Admin Dose 400 MG; Start 10/09/18 at 15:30 Hydralazine HCl (Apresoline) 10 mg Q4H PRN IV ELEVATED BLOOD PRESSURE; Start 10/09/18 at 14:00 Hydroxychloroquine Sulfate (Plaquenil) 200 mg BID PO Last administered on 11/16/18 20:16; Admin Dose 200 MG; Start 10/09/18 at 21:00 Lactobacillus Acidophilus (Florajen3 Capsule) 1 each BID GTB Last administered on 11/16/18 20:15; Admin Dose 1 EACH; Start 10/09/18 at 21:00 Lansoprazole (Prevacid) 30 mg BID@,18 GTB Last administered on 11/17/18 05:16; Admin Dose 30 MG; Start 10/09/18 at 18:00 Levetiracetam (Keppra Liquid) 500 mg BID GTB Last administered on 11/16/18 20:15; Admin Dose 500 MG; Start 10/09/18 at 21:00 Magnesium Oxide (Mag-Ox 400) 400 mg BID GTB Last administered on 11/16/18 20:17; Admin Dose 400 MG; Start 10/09/18 at 21:00 Metoclopramide HCl (Reglan) 10 mg TID IV Last administered on 11/16/18 20:16; Admin Dose 10 MG; Start 10/09/18 at 21:00 Miconazole Nitrate (Miconazole 2% Cr) 1 applic BID TOP Last administered on 11/16/18at 20:18; Admin Dose 1 APPLIC; Start 10/09/18 at 21:00 Miconazole Nitrate (Miconazole 2% Cr) 1 applic Q12 PRN TOP rash; Start 10/09/18 at 14:00 Ondansetron HCl (Zofran Inj) 4 mg Q4H PRN IV NAUSEA AND/OR VOMITING Last administered on 10/19/18at 16:37; Admin Dose 4 MG; Start 10/09/18 at 14:00 Polyethylene Glycol (Miralax) 17 gm DAILY PRN GTB CONSTIPATION; Start 10/09/18 at 14:00 Senna (Senokot) 2 tab Q8 PRN PO CONSTIPATION; Start 10/09/18 at 14:00 Trimethoprim/ Sulfamethoxazole (Bactrim Susp) 40 ml DAILY GTB Last administered on 11/16/18at 08:29; Admin Dose 40 ML; Start 10/10/18 at 09:00 Zolpidem Tartrate (Ambien) 5 mg HS PRN PO INSOMNIA Last administered on 11/03/18at 01:16; Admin Dose 5 MG; Start 10/09/18 at 14:00 Miscellaneous Information 1 ea NOTE XX ; Start 10/09/18 at 15:00 Glucose (Glutose) 15 gm Q15M PRN PO DECREASED GLUCOSE; Start 10/09/18 at 15:00 Glucose (Glutose) 22.5 gm Q15M PRN PO DECREASED GLUCOSE; Start 10/09/18 at 15:00 Dextrose (D50w Syringe) 25 ml Q15M PRN IV DECREASED GLUCOSE; Start 10/09/18 at 15:00 Dextrose (D50w Syringe) 50 ml Q15M PRN IV DECREASED GLUCOSE; Start 10/09/18 at 15:00 Glucagon (Glucagen) 1 mg Q15M PRN IM DECREASED GLUCOSE; Start 10/09/18 at 15:00 Glucose (Glutose) 15 gm Q15M PRN BUCCAL DECREASED GLUCOSE; Start 10/09/18 at 15:00 Albuterol (Ventolin Hfa) 4 puff Q6H RESP THERAPY INH Last administered on 11/17/18at 07:27; Admin Dose 4 PUFF; Start 10/10/18 at 02:00 Ipratropium [place] (Atrovent Hfa) 4 puff Q6H RESP THERAPY INH Last administered on 11/17/18 07:27; Admin Dose 4 PUFF; Start 10/10/18 at 02:00 Linagliptin (Tradjenta) 5 mg DAILY PO Last administered on 11/16/18 08:29; Admin Dose 5 MG; Start 10/16/18 at 10:30 Quetiapine Fumarate (Seroquel) 100 mg BID GTB Last administered on 11/16/18 20:17; Admin Dose 100 MG; Start 10/21/18 at 21:00 Calcium Carbonate (Ca Carbonate) 1,250 mg QID GTB Last administered on 11/16/18 20:15; Admin Dose 1,250 MG; Start 10/24/18 at 13:00 Metoprolol Tartrate (Lopressor) 5 mg Q4H PRN IV HR>110 Hold SBP<100 Last administered on 11/11/18 18:31; Admin Dose 5 MG; Start 10/28/18 at 12:30 Phenylephrine HCl 40 mg/Dextrose 250 ml @ 37.5 mls/hr TITRATE IV Last administered on 11/02/18 09:05; Admin Dose 11.25 MLS/HR; Start 11/01/18 at 13:30 IV Flush (NS 10 ml) 10 ml PRN PRN IV IV PROTOCOL; Start 11/01/18 at 16:30 Collagenase (Santyl) 1 applic DAILY TOP Last administered on 11/16/18 08:22; Admin Dose 1 APPLIC; Start 11/01/18 at 19:30 Norepinephrine 32 mg/Dextrose 250 ml @ 0.47 mls/hr TITRATE IV Last administered on 11/02/18 12:15; Admin Dose 0.47 MLS/HR; Start 11/02/18 at 11:30 Midodrine (Proamatine) 5 mg TID@09,13,17 GTB Last administered on 11/08/18 12:53; Admin Dose 5 MG; Start 11/03/18 at 09:00; Status Hold Guaifenesin (Robitussin Liquid Cup) 100 mg Q4H PRN PO COUGH Last administered on 11/13/18 17:58; Admin Dose 100 MG; Start 11/03/18 at 12:00 Calcitriol (Rocaltrol) 1.5 mcg BID PO Last administered on 11/16/18 20:16; Admin Dose 1.5 MCG; Start 11/07/18 at 21:00 Lorazepam (Ativan) 1 mg Q4 GTB Last administered on 11/17/18 05:15; Admin Dose 1 MG; Start 11/09/18 at 14:00 Carvedilol (Coreg) 6.25 mg BID PO Last administered on 11/16/18 20:16; Admin Dose 6.25 MG; Start 11/09/18 at 21:00 Benazepril HCl (Lotensin) 10 mg DAILY PO Last administered on 11/16/18 08:24; Admin Dose 10 MG; Start 11/10/18 at 09:00 Digoxin (Digoxin) 0.25 mg DAILY@13 PO Last administered on 11/16/18 12:04; Admin Dose 0.25 MG; Start 11/11/18 at 13:00 Furosemide (Lasix) 20 mg DAILY IV Last administered on 11/15/18 08:58; Admin Dose 20 MG; Start 11/10/18 at 12:30; Status Hold Hydromorphone HCl (Dilaudid) 3 mg Q4H PRN PO MODERATE PAIN LEVEL 7-10 Last administered on 11/17/18 01:47; Admin Dose 3 MG; Start 11/10/18 at 22:00 Cefepime HCl 50 ml @ 100 mls/hr Q12 IVPB Last administered on 11/16/18 20:22; Admin Dose 100 MLS/HR; Start 11/10/18 at 23:30 Fentanyl 100 ml @ 2.5 mls/hr TITRATE IV Last administered on 11/16/18 22:22; Admin Dose 5 MLS/HR; Start 11/14/18 at 09:00 Ascorbic Acid (Vitamin C) 250 mg DAILY GTB Last administered on 11/16/18 08:25; Admin Dose 250 MG; Start 11/15/18 at 09:00; Stop 11/29/18 at 09:00 Zinc Sulfate (Zinc Sulfate) 220 mg DAILY GTB Last administered on 11/16/18 08:23; Admin Dose 220 MG; Start 11/15/18 at 09:00; Stop 11/29/18 at 09:00 Miscellaneous Information (*Order Clarification Bulletin) MEDICATION REQUIRES CLARIFICATI... Q8H XX ; Start 11/15/18 at 12:00 Hydrocortisone (Cortef) 15 mg HS PEG Last administered on 11/16/18at 20:16; Admin Dose 15 MG; Start 11/15/18 at 21:00 Hydrocortisone (Cortef) 15 mg QAM PEG Last administered on 11/16/18at 08:26; Admin Dose 15 MG; Start 11/16/18 at 09:00 Hydrocortisone (Cortef) 15 mg AC DINNER PEG Last administered on 11/16/18at 17:09; Admin Dose 15 MG; Start 11/15/18 at 17:05 Acetazolamide (Diamox) 500 mg DAILY IV Last administered on 11/16/18at 09:51; Admin Dose 500 MG; Start 11/16/18 at 09:30 Daptomycin 185 mg/ Sodium Chloride 100 ml @ 200 mls/hr Q24H IVPB Last administered on 11/16/18at 17:58; Admin Dose 200 MLS/HR; Start 11/16/18 at 16:00; Stop 11/21/18 at 15:59 Enoxaparin Sodium (Lovenox) 30 mg DAILY SC Last administered on 11/16/18at 17:12; Admin Dose 30 MG; Start 11/16/18 at 16:00 Insulin Aspart (Novolog Insulin Pen) NOVOLOG *CUSTOM* ALGORITHM Q6 SC ; Start 11/17/18 at 12:00 RENATO GAMBOA Nov 17, 2018 09:13
--- NOTE | 2018-11-17 09:16 | CONS ---
Assessment/Plan Assessment/Plan Assessment/Plan (Daily) Ventilator setting; AC of 20, pressure controlled, PEEP of 8, 85% FiO2. Fentanyl 25 mics per hour. Assessment and recommendations; 1. Patient with history of ARDS and VDR F as well as functional quadriplegia admitted for worsening hypoxemia with persistent severe hypoxemic and hypercapnic respiratory failure. 2. Other comorbidities include history of HSV esophagitis, Neuropathy, anxiety, depression, anemia, as well as possibly superimposed pneumonia. Patient currently on cefepime. Prognosis is extremely poor. Continue supportive care. Hospice and comfort care was discussed with the patient. Consultation Date/Type/Reason Admit Date/Time Oct 09, 2018 at 12:16 Initial Consult Date 10/12/18 Type of Consult Pulmonary/critical care Patient's condition is stable. Remains completely awake and alert. Has remained hemodynamically stable. Patient also has been switched over to volume control ventilation from pressure-controlled mode. General exam; middle-aged male, on ventilator via tracheostomy, awake and alert. Watching television. Currently in no distress. Area Requesting Provider: NOLA VIDAL MD Date/Time of Note DATE: 11/17/18 TIME: 09:13 24 HR Interval Summary Free Text/Dictation Patient's condition is unchanged. Still remaining hypoxemic. General exam; middle-aged male, awake, currently no distress. Exam/Review of Systems Exam Vitals Vital Signs Date Temp Pulse Resp B/P (MAP) Pulse Ox O2 O2 Flow FiO2 Time Delivery Rate 11/17/18 106 19 98/61 (73) 97 Mechanical 06:00 Ventilator 11/17/18 85 04:54 11/17/18 99.4 04:00 Intake and Output 11/16/18 11/16/18 11/17/18 1515:00 23:00 07:00 IntakeIntake Total 445.06 ml 592.5 ml 445.5 ml OutputOutput Total 550 ml 400 ml 325 ml BalanceBalance -104.94 ml 192.5 ml 120.5 ml Exam H EENT exam; supple neck, no JVD. Tracheostomy in place. Patient is edentulous. Chest exam; bilateral crackles. S1-S2 audible, no murmurs. Regular rhythm. Abdomen exam; soft, no organomegaly. G-tube in place. Bowel sounds audible. Extremity exam; no edema. PIPE JEEPER exam; patient is awake mildly sedated though. Results Result Diagram: 11/17/18 0426 11/17/18 0400 Results 24hrs Laboratory Tests Test 11/16/18 09:48 11/16/18 12:22 11/16/18 13:06 11/16/18 20:23 White Blood Count 15.0 H Red Blood Count 2.57 L Hemoglobin 7.3 L Hematocrit 24.9 L Mean Corpuscular Volume 96.9 Mean Corpuscular 28.4 L Hemoglobin Mean Corpuscular 29.3 L Hemoglobin Concent Red Cell Distribution 16.0 H Width Platelet Count 406 Mean Platelet Volume 10.3 Immature Granulocytes % 2.100 H Neutrophils % 63.3 Lymphocytes % 6.6 L Monocytes % 10.7 Eosinophils % 16.6 H Basophils % 0.7 Nucleated Red Blood 0.0 Cells % Immature Granulocytes # 0.310 H Neutrophils # 9.5 H Lymphocytes # 1.0 Monocytes # 1.6 H Eosinophils # 2.5 H Basophils # 0.1 Nucleated Red Blood 0.0 Cells # Digoxin Level 1.6 Bedside Glucose 140 124 Test 11/17/18 01:03 11/17/18 04:00 11/17/18 04:26 Bedside Glucose 154 Sodium Level 144 Potassium Level 4.0 Chloride Level 99 Carbon Dioxide Level 41 *H Anion Gap 4 L Blood Urea Nitrogen 30 H Creatinine 0.45 L Est Glomerular Filtrat > 60 Rate mL/min Glucose Level 111 Calcium Level 8.0 L Phosphorus Level 3.8 Magnesium Level 2.2 White Blood Count 13.4 H Red Blood Count 2.62 L Hemoglobin 7.3 L Hematocrit 25.8 L Mean Corpuscular Volume 98.5 Mean Corpuscular 27.9 L Hemoglobin Mean Corpuscular 28.3 L Hemoglobin Concent Red Cell Distribution 16.1 H Width Platelet Count 442 H Mean Platelet Volume 10.9 H Immature Granulocytes % 3.100 H Neutrophils % 64.3 Lymphocytes % 6.3 L Monocytes % 11.0 Eosinophils % 14.3 H Basophils % 1.0 Nucleated Red Blood 0.0 Cells % Immature Granulocytes # 0.410 H Neutrophils # 8.6 H Lymphocytes # 0.8 Monocytes # 1.5 H Eosinophils # 1.9 H Basophils # 0.1 Nucleated Red Blood 0.0 Cells # Medications Medication Current Medications Acetaminophen (Tylenol Liquid) 650 mg Q4H PRN GTB MILD PAIN(1-3)OR ELEVATED TEMP Last administered on 11/16/18 12:03; Admin Dose 650 MG; Start 10/09/18 at 14:00 Al Hydrox/Mg Hydrox/Simethicone (Mag-Al Plus) 15 ml Q6H PRN PO GASTROINTESTINAL UPSET Last administered on 10/17/18 13:18; Admin Dose 15 ML; Start 10/09/18 at 14:00 Eye Lubricant (Artificial Tears Oph) 1 drop Q6H PRN BOTH EYES DRY EYES Last administered on 11/03/18 09:33; Admin Dose 1 DROP; Start 10/09/18 at 14:00 Bisacodyl (Dulcolax Supp) 10 mg DAILY PRN [place] CONSTIPATION; Start 10/09/18 at 14:00 Clonidine (Catapres) 0.1 mg DAILY PRN GTB ELEVATED BLOOD PRESSURE; Start 10/09/18 at 14:00 Diltiazem HCl (Cardizem Iv) 5 mg Q4 PRN IV ELEVATED HEART RATE Last administered on 11/06/18 18:47; Admin Dose 5 MG; Start 10/09/18 at 14:00 Diphenhydramine HCl (Benadryl Liquid Cup) 25 mg Q6 PRN GTB ITCHING Last administered on 10/22/18 20:25; Admin Dose 25 MG; Start 10/09/18 at 14:00 Duloxetine HCl (Cymbalta) 30 mg DAILY PO Last administered on 11/16/18 08:25; Admin Dose 30 MG; Start 10/10/18 at 09:00 Gabapentin (Neurontin Liquid) 400 mg Q8 GTB Last administered on 11/17/18 05:16; Admin Dose 400 MG; Start 10/09/18 at 15:30 Hydralazine HCl (Apresoline) 10 mg Q4H PRN IV ELEVATED BLOOD PRESSURE; Start 10/09/18 at 14:00 Hydroxychloroquine Sulfate (Plaquenil) 200 mg BID PO Last administered on 11/16/18 20:16; Admin Dose 200 MG; Start 10/09/18 at 21:00 Lactobacillus Acidophilus (Florajen3 Capsule) 1 each BID GTB Last administered on 11/16/18 20:15; Admin Dose 1 EACH; Start 10/09/18 at 21:00 Lansoprazole (Prevacid) 30 mg BID@06,18 GTB Last administered on 11/17/18 05:16; Admin Dose 30 MG; Start 10/09/18 at 18:00 Levetiracetam (Keppra Liquid) 500 mg BID GTB Last administered on 11/16/18 20:15; Admin Dose 500 MG; Start 10/09/18 at 21:00 Magnesium Oxide (Mag-Ox 400) 400 mg BID GTB Last administered on 11/16/18 20 :17; Admin Dose 400 MG; Start 10/09/18 at 21:00 Metoclopramide HCl (Reglan) 10 mg TID IV Last administered on 11/16/18 20:16; Admin Dose 10 MG; Start 10/09/18 at 21:00 Miconazole Nitrate (Miconazole 2% Cr) 1 applic BID TOP Last administered on 11/16/18 20:18; Admin Dose 1 APPLIC; Start 10/09/18 at 21:00 Miconazole Nitrate (Miconazole 2% Cr) 1 applic Q12 PRN TOP rash; Start 10/09/18 at 14:00 Ondansetron HCl (Zofran Inj) 4 mg Q4H PRN IV NAUSEA AND/OR VOMITING Last administered on 10/19/18 16:37; Admin Dose 4 MG; Start 10/09/18 at 14:00 Polyethylene Glycol (Miralax) 17 gm DAILY PRN GTB CONSTIPATION; Start 10/09/18 at 14:00 Senna (Senokot) 2 tab Q8 PRN PO CONSTIPATION; Start 10/09/18 at 14:00 Trimethoprim/ Sulfamethoxazole (Bactrim Susp) 40 ml DAILY GTB Last administered on 11/16/18 08:29; Admin Dose 40 ML; Start 10/10/18 at 09:00 Zolpidem Tartrate (Ambien) 5 mg HS PRN PO INSOMNIA Last administered on 11/03/18 01:16; Admin Dose 5 MG; Start 10/09/18 at 14:00 Miscellaneous Information 1 ea NOTE XX ; Start 10/09/18 at 15:00 Glucose (Glutose) 15 gm Q15M PRN PO DECREASED GLUCOSE; Start 10/09/18 at 15:00 Glucose (Glutose) 22.5 gm Q15M PRN PO DECREASED GLUCOSE; Start 10/09/18 at 15 :00 Dextrose (D50w Syringe) 25 ml Q15M PRN IV DECREASED GLUCOSE; Start 10/09/18 at 15:00 Dextrose (D50w Syringe) 50 ml Q15M PRN IV DECREASED GLUCOSE; Start 10/09/18 at 15:00 Glucagon (Glucagen) 1 mg Q15M PRN IM DECREASED GLUCOSE; Start 10/09/18 at 15:00 Glucose (Glutose) 15 gm Q15M PRN BUCCAL DECREASED GLUCOSE; Start 10/09/18 at 15:00 Albuterol (Ventolin Hfa) 4 puff Q6H RESP THERAPY INH Last administered on 11/17/18 07:27; Admin Dose 4 PUFF; Start 10/10/18 at 02:00 Ipratropium [place] (Atrovent Hfa) 4 puff Q6H RESP THERAPY INH Last administered on 11/17/18 07:27; Admin Dose 4 PUFF; Start 10/10/18 at 02:00 Linagliptin (Tradjenta) 5 mg DAILY PO Last administered on 11/16/18 08:29; Adm in Dose 5 MG; Start 10/16/18 at 10:30 Quetiapine Fumarate (Seroquel) 100 mg BID GTB Last administered on 11/16/18 20:17; Admin Dose 100 MG; Start 10/21/18 at 21:00 Calcium Carbonate (Ca Carbonate) 1,250 mg QID GTB Last administered on 11/16/18 20:15; Admin Dose 1,250 MG; Start 10/24/18 at 13:00 Metoprolol Tartrate (Lopressor) 5 mg Q4H PRN IV HR>110 Hold SBP<100 Last administered on 11/11/18 18:31; Admin Dose 5 MG; Start 10/28/18 at 12:30 Phenylephrine HCl 40 mg/Dextrose 250 ml @ 37.5 mls/hr TITRATE IV Last administered on 11/02/18 09:05; Admin Dose 11.25 MLS/HR; Start 11/01/18 at 13:30 IV Flush (NS 10 ml) 10 ml PRN PRN IV IV PROTOCOL; Start 11/01/18 at 16:30 Collagenase (Santyl) 1 applic DAILY TOP Last administered on 11/16/18 08:22; Admin Dose 1 APPLIC; Start 11/01/18 at 19:30 Norepinephrine 32 mg/Dextrose 250 ml @ 0.47 mls/hr TITRATE IV Last administered on 11/02/18 12:15; Admin Dose 0.47 MLS/HR; Start 11/02/18 at 11:30 Midodrine (Proamatine) 5 mg TID@09,13,17 GTB Last administered on 11/08/18 12:53; Admin Dose 5 MG; Start 11/03/18 at 09:00; Status Hold Guaifenesin (Robitussin Liquid Cup) 100 mg Q4H PRN PO COUGH Last administered on 11/13/18 17:58; Admin Dose 100 MG; Start 11/03/18 at 12:00 Calcitriol (Rocaltrol) 1.5 mcg BID PO Last administered on 11/16/18 20:16; Admin Dose 1.5 MCG; Start 11/07/18 at 21:00 Lorazepam (Ativan) 1 mg Q4 GTB Last administered on 11/17/18 05:15; Admin Dose 1 MG; Start 11/09/18 at 14:00 Carvedilol (Coreg) 6.25 mg BID PO Last administered on 11/16/18 20:16; Admin Dose 6.25 MG; Start 11/09/18 at 21:00 Benazepril HCl (Lotensin) 10 mg DAILY PO Last administered on 11/16/18 08:24; Admin Dose 10 MG; Start 11/10/18 at 09:00 Digoxin (Digoxin) 0.25 mg DAILY@13 PO Last administered on 11/16/18 12:04; Admin Dose 0.25 MG; Start 11/11/18 at 13:00 Furosemide (Lasix) 20 mg DAILY IV Last administered on 11/15/18 08:58; Admin Dose 20 MG; Start 11/10/18 at 12:30; Status Hold Hydromorphone HCl (Dilaudid) 3 mg Q4H PRN PO MODERATE PAIN LEVEL 7-10 Last administered on 11/17/18 01:47; Admin Dose 3 MG; Start 11/10/18 at 22:00 Cefepime HCl 50 ml @ 100 mls/hr Q12 IVPB Last administered on 11/16/18 20:22; Admin Dose 100 MLS/HR; Start 11/10/18 at 23:30 Fentanyl 100 ml @ 2.5 mls/hr TITRATE IV Last administered on 11/16/18 22:22; Admin Dose 5 MLS/HR; Start 11/14/18 at 09:00 Ascorbic Acid (Vitamin C) 250 mg DAILY GTB Last administered on 11/16/18 08:25; Admin Dose 250 MG; Start 11/15/18 at 09:00; Stop 11/29/18 at 09:00 Zinc Sulfate (Zinc Sulfate) 220 mg DAILY GTB Last administered on 11/16/18 08:23; Admin Dose 220 MG; Start 11/15/18 at 09:00; Stop 11/29/18 at 09:00 Miscellaneous Information (*Order Clarification Bulletin) MEDICATION REQUIRES CLARIFICATI... Q8H XX ; Start 11/15/18 at 12:00 Hydrocortisone (Cortef) 15 mg HS PEG Last administered on 11/16/18 20:16; Admin Dose 15 MG; Start 11/15/18 at 21:00 Hydrocortisone (Cortef) 15 mg QAM PEG Last administered on 11/16/18 08:26; Admin Dose 15 MG; Start 11/16/18 at 09:00 Hydrocortisone (Cortef) 15 mg AC DINNER PEG Last administered on 11/16/18 17:09; Admin Dose 15 MG; Start 11/15/18 at 17:05 Acetazolamide (Diamox) 500 mg DAILY IV Last administered on 11/16/18 09:51; A dmin Dose 500 MG; Start 11/16/18 at 09:30 Daptomycin 185 mg/ Sodium Chloride 100 ml @ 200 mls/hr Q24H IVPB Last administered on 11/16/18 17:58; Admin Dose 200 MLS/HR; Start 11/16/18 at 16:00; Stop 11/21/18 at 15:59 Enoxaparin Sodium (Lovenox) 30 mg DAILY SC Last administered on 11/16/18 17:12; Admin Dose 30 MG; Start 11/16/18 at 16:00 Insulin Aspart (Novolog Insulin Pen) NOVOLOG *CUSTOM* ALGORITHM Q6 SC ; Start 11/17/18 at 12:00 PILAR BERGER Nov 17, 2018 09:16
--- NOTE | 2018-11-17 09:20 | CONS ---
Consultation Date/Type/Reason Admit Date/Time Oct 09, 2018 at 12:16 Date/Time of Note DATE: 11/17/18 TIME: 09:19 Hx of Present Illness Addendum I spoke to patient's this morning and expressed to her that I am not sure, know when sure whether or not patient may live until the . 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 We will speak to social work service and patient's primary care physician as well as scraper tender. Past Medical History Medical History: diabetes, hypertension, renal disease, other (COPD, RA, spinal stenosis, neuropathy, cervical myelopathy with cervical radiculopathy, chronic pain syndrome, tracheobronchitis, fibromyalgia, MAC infection, anemia, chronic steroid therapy) Medications Current Medications Acetaminophen (Tylenol Liquid) 650 mg Q4H PRN GTB MILD PAIN(1-3)OR ELEVATED TEMP Last administered on 11/16/18at 12:03; Admin Dose 650 MG; Start 10/09/18 at 14:00 Al Hydrox/Mg Hydrox/Simethicone (Mag-Al Plus) 15 ml Q6H PRN PO GASTROINTESTINAL UPSET Last administered on 10/17/18at 13:18; Admin Dose 15 ML; Start 10/09/18 at 14:00 Eye Lubricant (Artificial Tears Oph) 1 drop Q6H PRN BOTH EYES DRY EYES Last administered on 11/03/18at 09:33; Admin Dose 1 DROP; Start 10/09/18 at 14:00 Bisacodyl (Dulcolax Supp) 10 mg DAILY PRN [place] CONSTIPATION; Start 10/09/18 at 14:00 Clonidine (Catapres) 0.1 mg DAILY PRN GTB ELEVATED BLOOD PRESSURE; Start 10/09/18 at 14:00 Diltiazem HCl (Cardizem Iv) 5 mg Q4 PRN IV ELEVATED HEART RATE Last administered on 11/06/18at 18:47; Admin Dose 5 MG; Start 10/09/18 at 14:00 Diphenhydramine HCl (Benadryl Liquid Cup) 25 mg Q6 PRN GTB ITCHING Last administered on 10/22/18at 20:25; Admin Dose 25 MG; Start 10/09/18 at 14:00 Duloxetine HCl (Cymbalta) 30 mg DAILY PO Last administered on 11/16/18 08:25; Admin Dose 30 MG; Start 10/10/18 at 09:00 Gabapentin (Neurontin Liquid) 400 mg Q8 GTB Last administered on 11/17/18 05:16; Admin Dose 400 MG; Start 10/09/18 at 15:30 Hydralazine HCl (Apresoline) 10 mg Q4H PRN IV ELEVATED BLOOD PRESSURE; Start 10/09/18 at 14:00 Hydroxychloroquine Sulfate (Plaquenil) 200 mg BID PO Last administered on 11/16/18 20:16; Admin Dose 200 MG; Start 10/09/18 at 21:00 Lactobacillus Acidophilus (Florajen3 Capsule) 1 each BID GTB Last administered on 11/16/18 20:15; Admin Dose 1 EACH; Start 10/09/18 at 21:00 Lansoprazole (Prevacid) 30 mg BID@,18 GTB Last administered on 11/17/18 05:16; Admin Dose 30 MG; Start 10/09/18 at 18:00 Levetiracetam (Keppra Liquid) 500 mg BID GTB Last administered on 11/16/18 20:15; Admin Dose 500 MG; Start 10/09/18 at 21:00 Magnesium Oxide (Mag-Ox 400) 400 mg BID GTB Last administered on 11/16/18 20:17; Admin Dose 400 MG; Start 10/09/18 at 21:00 Metoclopramide HCl (Reglan) 10 mg TID IV Last administered on 11/16/18 20:16; Admin Dose 10 MG; Start 10/09/18 at 21:00 Miconazole Nitrate (Miconazole 2% Cr) 1 applic BID TOP Last administered on 11/16/18 20:18; Admin Dose 1 APPLIC; Start 10/09/18 at 21:00 Miconazole Nitrate (Miconazole 2% Cr) 1 applic Q12 PRN TOP rash; Start 10/09/18 at 14:00 Ondansetron HCl (Zofran Inj) 4 mg Q4H PRN IV NAUSEA AND/OR VOMITING Last a dministered on 10/19/18 16:37; Admin Dose 4 MG; Start 10/09/18 at 14:00 Polyethylene Glycol (Miralax) 17 gm DAILY PRN GTB CONSTIPATION; Start 10/09/18 at 14:00 Senna (Senokot) 2 tab Q8 PRN PO CONSTIPATION; Start 10/09/18 at 14:00 Trimethoprim/ Sulfamethoxazole (Bactrim Susp) 40 ml DAILY GTB Last administered on 11/16/18 08:29; Admin Dose 40 ML; Start 10/10/18 at 09:00 Zolpidem Tartrate (Ambien) 5 mg HS PRN PO INSOMNIA Last administered on 11/03/18at 01:16; Admin Dose 5 MG; Start 10/09/18 at 14:00 Miscellaneous Information 1 ea NOTE XX ; Start 10/09/18 at 15:00 Glucose (Glutose) 15 gm Q15M PRN PO DECREASED GLUCOSE; Start 10/09/18 at 15:00 Glucose (Glutose) 22.5 gm Q15M PRN PO DECREASED GLUCOSE; Start 10/09/18 at 15:00 Dextrose (D50w Syringe) 25 ml Q15M PRN IV DECREASED GLUCOSE; Start 10/09/18 at 15:00 Dextrose (D50w Syringe) 50 ml Q15M PRN IV DECREASED GLUCOSE; Start 10/09/18 at 15:00 Glucagon (Glucagen) 1 mg Q15M PRN IM DECREASED GLUCOSE; Start 10/09/18 at 15:00 Glucose (Glutose) 15 gm Q15M PRN BUCCAL DECREASED GLUCOSE; Start 10/09/18 at 15:00 Albuterol (Ventolin Hfa) 4 puff Q6H RESP THERAPY INH Last administered on 11/17/18at 07:27; Admin Dose 4 PUFF; Start 10/10/18 at 02:00 Ipratropium [place] (Atrovent Hfa) 4 puff Q6H RESP THERAPY INH Last administered on 11/17/18 07:27; Admin Dose 4 PUFF; Start 10/10/18 at 02:00 Linagliptin (Tradjenta) 5 mg DAILY PO Last administered on 11/16/18 08:29; Admin Dose 5 MG; Start 10/16/18 at 10:30 Quetiapine Fumarate (Seroquel) 100 mg BID GTB Last administered on 11/16/18at 20:17; Admin Dose 100 MG; Start 10/21/18 at 21:00 Calcium Carbonate (Ca Carbonate) 1,250 mg QID GTB Last administered on 11/16/18 20:15; Admin Dose 1,250 MG; Start 10/24/18 at 13:00 Metoprolol Tartrate (Lopressor) 5 mg Q4H PRN IV HR>110 Hold SBP<100 Last ad ministered on 11/11/18 18:31; Admin Dose 5 MG; Start 10/28/18 at 12:30 Phenylephrine HCl 40 mg/Dextrose 250 ml @ 37.5 mls/hr TITRATE IV Last administered on 11/02/18 09:05; Admin Dose 11.25 MLS/HR; Start 11/01/18 at 13:30 IV Flush (NS 10 ml) 10 ml PRN PRN IV IV PROTOCOL; Start 11/01/18 at 16:30 Collagenase (Santyl) 1 applic DAILY TOP Last administered on 11/16/18 08:22; Admin Dose 1 APPLIC; Start 11/01/18 at 19:30 Norepinephrine 32 mg/Dextrose 250 ml @ 0.47 mls/hr TITRATE IV Last adminis tered on 11/02/18 12:15; Admin Dose 0.47 MLS/HR; Start 11/02/18 at 11:30 Midodrine (Proamatine) 5 mg TID@,13,17 GTB Last administered on 11/08/18 12:53; Admin Dose 5 MG; Start 11/03/18 at 09:00; Status Hold Guaifenesin (Robitussin Liquid Cup) 100 mg Q4H PRN PO COUGH Last administered on 11/13/18 17:58; Admin Dose 100 MG; Start 11/03/18 at 12:00 Calcitriol (Rocaltrol) 1.5 mcg BID PO Last administered on 11/16/18 20:16; Admin Dose 1.5 MCG; Start 11/07/18 at 21:00 Lorazepam (Ativan) 1 mg Q4 GTB Last administered on 11/17/18 05:15; Admin Dose 1 MG; Start 11/09/18 at 14:00 Carvedilol (Coreg) 6.25 mg BID PO Last administered on 11/16/18 20:16; Admin Dose 6.25 MG; Start 11/09/18 at 21:00 Benazepril HCl (Lotensin) 10 mg DAILY PO Last administered on 11/16/18 08:24; Admin Dose 10 MG; Start 11/10/18 at 09:00 Digoxin (Digoxin) 0.25 mg DAILY@13 PO Last administered on 11/16/18 12:04; Ad min Dose 0.25 MG; Start 11/11/18 at 13:00 Furosemide (Lasix) 20 mg DAILY IV Last administered on 11/15/18 08:58; Admin Dose 20 MG; Start 11/10/18 at 12:30; Status Hold Hydromorphone HCl (Dilaudid) 3 mg Q4H PRN PO MODERATE PAIN LEVEL 7-10 Last administered on 11/17/18 01:47; Admin Dose 3 MG; Start 11/10/18 at 22:00 Cefepime HCl 50 ml @ 100 mls/hr Q12 IVPB Last administered on 11/16/18 20:22; Admin Dose 100 MLS/HR; Start 11/10/18 at 23:30 Fentanyl 100 ml @ 2.5 mls/hr TITRATE IV Last administered on 11/16/18 22:22; Admin Dose 5 MLS/HR; Start 11/14/18 at 09:00 Ascorbic Acid (Vitamin C) 250 mg DAILY GTB Last administered on 11/16/18 08:25; Admin Dose 250 MG; Start 11/15/18 at 09:00; Stop 11/29/18 at 09:00 Zinc Sulfate (Zinc Sulfate) 220 mg DAILY GTB Last administered on 11/16/18 08:23; Admin Dose 220 MG; Start 11/15/18 at 09:00; Stop 11/29/18 at 09:00 Miscellaneous Information (*Order Clarification Bulletin) MEDICATION REQUIRES CLARIFICATI... Q8H XX ; Start 11/15/18 at 12:00 Hydrocortisone (Cortef) 15 mg HS PEG Last administered on 11/16/18 20:16; Admin Dose 15 MG; Start 11/15/18 at 21:00 Hydrocortisone (Cortef) 15 mg QAM PEG Last administered on 11/16/18 08:26; Admin Dose 15 MG; Start 11/16/18 at 09:00 Hydrocortisone (Cortef) 15 mg AC DINNER PEG Last administered on 4/3/19at 17:09; Admin Dose 15 MG; Start 11/15/18 at 17:05 Acetazolamide (Diamox) 500 mg DAILY IV Last administered on 11/16/18at 09:51; Admin Dose 500 MG; Start 11/16/18 at 09:30 Daptomycin 185 mg/ Sodium Chloride 100 ml @ 200 mls/hr Q24H IVPB Last administered on 11/16/18at 17:58; Admin Dose 200 MLS/HR; Start 11/16/18 at 16:00; Stop 11/21/18 at 15:59 Enoxaparin Sodium (Lovenox) 30 mg DAILY SC Last administered on 11/16/18at 17:12; Admin Dose 30 MG; Start 11/16/18 at 16:00 Insulin Aspart (Novolog Insulin Pen) NOVOLOG *CUSTOM* ALGORITHM Q6 SC ; Start 11/17/18 at 12:00 Allergies: Coded Allergies: No Known Allergy (Unverified , 11/03/18) Past Surgical History Past Surgical Hx: other Social History Alcohol Use: none Smoking Status: Never smoker Drug Use: none Exam/Review of Systems Exam Vitals Vital Signs Date Temp Pulse Resp B/P (MAP) Pulse Ox O2 O2 Flow FiO2 Time Delivery Rate 11/17/18 106 19 98/61 (73) 97 Mechanical 06:00 Ventilator 11/17/18 85 04:54 11/17/18 99.4 04:00 Intake and Output 11/16/18 11/16/18 11/17/18 1515:00 23:00 07:00 IntakeIntake Total 445.06 ml 592.5 ml 445.5 ml OutputOutput Total 550 ml 400 ml 325 ml BalanceBalance -104.94 ml 192.5 ml 120.5 ml Results Result Diagram: 11/17/18 0426 11/17/18 0400 Results 24hrs Laboratory Tests Test 11/16/18 09:48 11/16/18 12:22 11/16/18 13:06 11/16/18 20:23 White Blood Count 15.0 H Red Blood Count 2.57 L Hemoglobin 7.3 L Hematocrit 24.9 L Mean Corpuscular Volume 96.9 Mean Corpuscular 28.4 L Hemoglobin Mean Corpuscular 29.3 L Hemoglobin Concent Red Cell Distribution 16.0 H Width Platelet Count 406 Mean Platelet Volume 10.3 Immature Granulocytes % 2.100 H Neutrophils % 63.3 Lymphocytes % 6.6 L Monocytes % 10.7 Eosinophils % 16.6 H Basophils % 0.7 Nucleated Red Blood 0.0 Cells % Immature Granulocytes # 0.310 H Neutrophils # 9.5 H Lymphocytes # 1.0 Monocytes # 1.6 H Eosinophils # 2.5 H Basophils # 0.1 Nucleated Red Blood 0.0 Cells # Digoxin Level 1.6 Bedside Glucose 140 124 Test 11/17/18 01:03 11/17/18 04:00 11/17/18 04:26 Bedside Glucose 154 Sodium Level 144 Potassium Level 4.0 Chloride Level 99 Carbon Dioxide Level 41 *H Anion Gap 4 L Blood Urea Nitrogen 30 H Creatinine 0.45 L Est Glomerular Filtrat > 60 Rate mL/min Glucose Level 111 Calcium Level 8.0 L Phosphorus Level 3.8 Magnesium Level 2.2 White Blood Count 13.4 H Red Blood Count 2.62 L Hemoglobin 7.3 L Hematocrit 25.8 L Mean Corpuscular Volume 98.5 Mean Corpuscular 27.9 L Hemoglobin Mean Corpuscular 28.3 L Hemoglobin Concent Red Cell Distribution 16.1 H Width Platelet Count 442 H Mean Platelet Volume 10.9 H Immature Granulocytes % 3.100 H Neutrophils % 64.3 Lymphocytes % 6.3 L Monocytes % 11.0 Eosinophils % 14.3 H Basophils % 1.0 Nucleated Red Blood 0.0 Cells % Immature Granulocytes # 0.410 H Neutrophils # 8.6 H Lymphocytes # 0.8 Monocytes # 1.5 H Eosinophils # 1.9 H Basophils # 0.1 Nucleated Red Blood 0.0 Cells # Medications Medication Current Medications Acetaminophen (Tylenol Liquid) 650 mg Q4H PRN GTB MILD PAIN(1-3)OR ELEVATED TEMP Last administered on 11/16/18 12:03; Admin Dose 650 MG; Start 10/09/18 at 14:00 Al Hydrox/Mg Hydrox/Simethicone (Mag-Al Plus) 15 ml Q6H PRN PO GASTROINTESTINAL UPSET Last administered on 10/17/18 13:18; Admin Dose 15 ML; Start 10/09/18 at 14:00 Eye Lubricant (Artificial Tears Oph) 1 drop Q6H PRN BOTH EYES DRY EYES Last administered on 11/03/18 09:33; Admin Dose 1 DROP; Start 10/09/18 at 14:00 Bisacodyl (Dulcolax Supp) 10 mg DAILY PRN [place] CONSTIPATION; Start 10/09/18 at 14:00 Clonidine (Catapres) 0.1 mg DAILY PRN GTB ELEVATED BLOOD PRESSURE; Start 10/09/18 at 14:00 Diltiazem HCl (Cardizem Iv) 5 mg Q4 PRN IV ELEVATED HEART RATE Last ad ministered on 11/06/18 18:47; Admin Dose 5 MG; Start 10/09/18 at 14:00 Diphenhydramine HCl (Benadryl Liquid Cup) 25 mg Q6 PRN GTB ITCHING Last administered on 10/22/18 20:25; Admin Dose 25 MG; Start 10/09/18 at 14:00 Duloxetine HCl (Cymbalta) 30 mg DAILY PO Last administered on 11/16/18 08:25; Admin Dose 30 MG; Start 10/10/18 at 09:00 Gabapentin (Neurontin Liquid) 400 mg Q8 GTB Last administered on 11/17/18 05:16; Admin Dose 400 MG; Start 10/09/18 at 15:30 Hydralazine HCl (Apresoline) 10 mg Q4H PRN IV ELEVATED BLOOD PRESSURE; Start 10/09/18 at 14:00 Hydroxychloroquine Sulfate (Plaquenil) 200 mg BID PO Last administered on 11/16/18 20:16; Admin Dose 200 MG; Start 10/09/18 at 21:00 Lactobacillus Acidophilus (Florajen3 Capsule) 1 each BID GTB Last administered on 11/16/18 20:15; Admin Dose 1 EACH; Start 10/09/18 at 21:00 Lansoprazole (Prevacid) 30 mg BID@,18 GTB Last administered on 11/17/18 05:16; Admin Dose 30 MG; Start 10/09/18 at 18:00 Levetiracetam (Keppra Liquid) 500 mg BID GTB Last administered on 11/16/18 20:15; Admin Dose 500 MG; Start 10/09/18 at 21:00 Magnesium Oxide (Mag-Ox 400) 400 mg BID GTB Last administered on 11/16/18 20:17; Admin Dose 400 MG; Start 10/09/18 at 21:00 Metoclopramide HCl (Reglan) 10 mg TID IV Last administered on 11/16/18at 20:16; Admin Dose 10 MG; Start 10/09/18 at 21:00 Miconazole Nitrate (Miconazole 2% Cr) 1 applic BID TOP Last administered on 11/16/18at 20:18; Admin Dose 1 APPLIC; Start 10/09/18 at 21:00 Miconazole Nitrate (Miconazole 2% Cr) 1 applic Q12 PRN TOP rash; Start 10/09/18 at 14:00 Ondansetron HCl (Zofran Inj) 4 mg Q4H PRN IV NAUSEA AND/OR VOMITING Last administered on 10/19/18at 16:37; Admin Dose 4 MG; Start 10/09/18 at 14:00 Polyethylene Glycol (Miralax) 17 gm DAILY PRN GTB CONSTIPATION; Start 10/09/18 at 14:00 Senna (Senokot) 2 tab Q8 PRN PO CONSTIPATION; Start 10/09/18 at 14:00 Trimethoprim/ Sulfamethoxazole (Bactrim Susp) 40 ml DAILY GTB Last administered on 11/16/18at 08:29; Admin Dose 40 ML; Start 10/10/18 at 09:00 Zolpidem Tartrate (Ambien) 5 mg HS PRN PO INSOMNIA Last administered on 11/03/18at 01:16; Admin Dose 5 MG; Start 10/09/18 at 14:00 Miscellaneous Information 1 ea NOTE XX ; Start 10/09/18 at 15:00 Glucose (Glutose) 15 gm Q15M PRN PO DECREASED GLUCOSE; Start 10/09/18 at 15:00 Glucose (Glutose) 22.5 gm Q15M PRN PO DECREASED GLUCOSE; Start 10/09/18 at 15:00 Dextrose (D50w Syringe) 25 ml Q15M PRN IV DECREASED GLUCOSE; Start 10/09/18 at 15:00 Dextrose (D50w Syringe) 50 ml Q15M PRN IV DECREASED GLUCOSE; Start 10/09/18 at 15:00 Glucagon (Glucagen) 1 mg Q15M PRN IM DECREASED GLUCOSE; Start 10/09/18 at 15:00 Glucose (Glutose) 15 gm Q15M PRN BUCCAL DECREASED GLUCOSE; Start 10/09/18 at 1 5:00 Albuterol (Ventolin Hfa) 4 puff Q6H RESP THERAPY INH Last administered on 11/17/18 07:27; Admin Dose 4 PUFF; Start 10/10/18 at 02:00 Ipratropium [place] (Atrovent Hfa) 4 puff Q6H RESP THERAPY INH Last administered on 11/17/18 07:27; Admin Dose 4 PUFF; Start 10/10/18 at 02:00 Linagliptin (Tradjenta) 5 mg DAILY PO Last administered on 11/16/18 08:29; Admin Dose 5 MG; Start 10/16/18 at 10:30 Quetiapine Fumarate (Seroquel) 100 mg BID GTB Last administered on 11/16/18 20:17; Admin Dose 100 MG; Start 10/21/18 at 21:00 Calcium Carbonate (Ca Carbonate) 1,250 mg QID GTB Last administered on 11/16/18 20:15; Admin Dose 1,250 MG; Start 10/24/18 at 13:00 Metoprolol Tartrate (Lopressor) 5 mg Q4H PRN IV HR>110 Hold SBP<100 Last administered on 11/11/18 18:31; Admin Dose 5 MG; Start 10/28/18 at 12:30 Phenylephrine HCl 40 mg/Dextrose 250 ml @ 37.5 mls/hr TITRATE IV Last administered on 11/02/18 09:05; Admin Dose 11.25 MLS/HR; Start 11/01/18 at 13:30 IV Flush (NS 10 ml) 10 ml PRN PRN IV IV PROTOCOL; Start 11/01/18 at 16:30 Collagenase (Santyl) 1 applic DAILY TOP Last administered on 11/16/18 08:22; Admin Dose 1 APPLIC; Start 11/01/18 at 19:30 Norepinephrine 32 mg/Dextrose 250 ml @ 0.47 mls/hr TITRATE IV Last administered on 11/02/18 12:15; Admin Dose 0.47 MLS/HR; Start 11/02/18 at 11:30 Midodrine (Proamatine) 5 mg TID@09,13,17 GTB Last administered on 11/08/18 12:53; Admin Dose 5 MG; Start 11/03/18 at 09:00; Status Hold Guaifenesin (Robitussin Liquid Cup) 100 mg Q4H PRN PO COUGH Last administered on 11/13/18 17:58; Admin Dose 100 MG; Start 11/03/18 at 12:00 Calcitriol (Rocaltrol) 1.5 mcg BID PO Last administered on 11/16/18 20:16; Admin Dose 1.5 MCG; Start 11/07/18 at 21:00 Lorazepam (Ativan) 1 mg Q4 GTB Last administered on 11/17/18 05:15; Admin Dose 1 MG; Start 11/09/18 at 14:00 Carvedilol (Coreg) 6.25 mg BID PO Last administered on 11/16/18 20:16; Admin D ose 6.25 MG; Start 11/09/18 at 21:00 Benazepril HCl (Lotensin) 10 mg DAILY PO Last administered on 11/16/18 08:24; Admin Dose 10 MG; Start 11/10/18 at 09:00 Digoxin (Digoxin) 0.25 mg DAILY@13 PO Last administered on 11/16/18 12:04; Admin Dose 0.25 MG; Start 11/11/18 at 13:00 Furosemide (Lasix) 20 mg DAILY IV Last administered on 11/15/18 08:58; Admin Dose 20 MG; Start 11/10/18 at 12:30; Status Hold Hydromorphone HCl (Dilaudid) 3 mg Q4H PRN PO MODERATE PAIN LEVEL 7-10 Last administered on 11/17/18 01:47; Admin Dose 3 MG; Start 11/10/18 at 22:00 Cefepime HCl 50 ml @ 100 mls/hr Q12 IVPB Last administered on 11/16/18 20:22; Admin Dose 100 MLS/HR; Start 11/10/18 at 23:30 Fentanyl 100 ml @ 2.5 mls/hr TITRATE IV Last administered on 11/16/18 22:22; Admin Dose 5 MLS/HR; Start 11/14/18 at 09:00 Ascorbic Acid (Vitamin C) 250 mg DAILY GTB Last administered on 11/16/18 08:25; Admin Dose 250 MG; Start 11/15/18 at 09:00; Stop 11/29/18 at 09:00 Zinc Sulfate (Zinc Sulfate) 220 mg DAILY GTB Last administered on 11/16/18 08:23; Admin Dose 220 MG; Start 11/15/18 at 09:00; Stop 11/29/18 at 09:00 Miscellaneous Information (*Order Clarification Bulletin) MEDICATION REQUIRES CLARIFICATI... Q8H XX ; Start 11/15/18 at 12:00 Hydrocortisone (Cortef) 15 mg HS PEG Last administered on 11/16/18at 20:16; Admin Dose 15 MG; Start 11/15/18 at 21:00 Hydrocortisone (Cortef) 15 mg QAM PEG Last administered on 11/16/18at 08:26; Admin Dose 15 MG; Start 11/16/18 at 09:00 Hydrocortisone (Cortef) 15 mg AC DINNER PEG Last administered on 11/16/18 17:09; Admin Dose 15 MG; Start 11/15/18 at 17:05 Acetazolamide (Diamox) 500 mg DAILY IV Last administered on 11/16/18 09:51; Admin Dose 500 MG; Start 11/16/18 at 09:30 Daptomycin 185 mg/ Sodium Chloride 100 ml @ 200 mls/hr Q24H IVPB Last administered on 11/16/18at 17:58; Admin Dose 200 MLS/HR; Start 11/16/18 at 16:00; Stop 11/21/18 at 15:59 Enoxaparin Sodium (Lovenox) 30 mg DAILY SC Last administered on 11/16/18at 17:12; Admin Dose 30 MG; Start 11/16/18 at 16:00 Insulin Aspart (Novolog Insulin Pen) NOVOLOG *CUSTOM* ALGORITHM Q6 SC ; Start 11/17/18 at 12:00 RENATO GAMBOA Nov 17, 2018 09:20
[2018-11-17] MEDS: CA CARBONATE (250 MG/ML) 5ML CUP GTB SCH ×4 (09:23→20:26)
[2018-11-17] MEDS: CEFEPIME 1GM/50 ML (PMX) 50 ML IVPB SCH ×2 (09:24→20:27)
[2018-11-17] MEDS: HYDROCORTISONE 5 MG TAB PEG SCH ×3 (09:24→20:25)
[2018-11-17] MEDS: QUETIAPINE 100 MG TAB GTB SCH ×2 (09:24→20:25)
[2018-11-17] MEDS: MAGNESIUM OXIDE 400 MG TAB GTB SCH ×2 (09:24→20:25)
[2018-11-17] MEDS: ACETAZOLAMIDE 500 MG INJ IV SCH (09:24)
[2018-11-17] MEDS: TRIMETHOPRIM/SULFAMETHOX (PO SYG) GTB SCH (09:24)
[2018-11-17] MEDS: L ACIDOPHIL/B LACTIS/B LONGUM CAPSULE GTB SCH ×2 (09:26→20:24)
[2018-11-17] MEDS: LINAGLIPTIN 5 MG TABLET PO SCH (09:26)
[2018-11-17] MEDS: ASCORBIC ACID 250 MG TAB GTB SCH (09:26)
[2018-11-17] MEDS: METOCLOPRAMIDE 10 MG INJ IV SCH ×3 (09:27→20:25)
[2018-11-17] MEDS: ZINC SULFATE 220 MG CAP GTB SCH (09:27)
[2018-11-17] MEDS: CALCITRIOL 0.5 MCG CAPSULE PO SCH ×2 (09:27→20:25)
[2018-11-17] MEDS: BENAZEPRIL 10 MG TAB PO SCH (09:27)
[2018-11-17] MEDS: DULOXETINE 30 MG CAP DR PO SCH (09:27)
[2018-11-17] MEDS: HYDROXYCHLOROQUINE 200 MG TAB PO SCH ×2 (09:27→20:25)
[2018-11-17] MEDS: LEVETIRACETAM (100 MG/ML) 5ML CUP GTB SCH ×2 (09:27→20:26)
[2018-11-17] MEDS: COLLAGENASE 5 GM (UD JAR) TOP SCH (09:28)
[2018-11-17] MEDS: BALSAM PERU/CASTOR OIL 60 GM TUBE TOP SCH ×2 (09:28→20:26)
[2018-11-17] MEDS: MICONAZOLE 2% 30 GM CR TOP SCH ×2 (09:29→20:26)
[2018-11-17] MEDS: ENOXAPARIN 30 MG/0.3 ML SYG SC SCH (10:31)
--- NOTE | 2018-11-17 11:43 | CONS ---
[facility] LIVE HCIS Consult Follow-up Patient Name: Armand Quiroga Unit Number: [id number] Date of : 1965 Patient Status: Admitted Inpatient Attending Doctor: Nola Vidal MD Edit: NEMO NEVRAEZ M.D. on 11/18/18 @ 20:12 Roque: I discussed the management with [employer] MANAGER Anup and agree Assessment/Plan Assessment/Plan Hospital Course (Demo Recall) # sepsis, respiratory - recurrent sepsis probably due to aspiration pneumonia, HCAP, UTI - s/p recurrent sepsis due to aspiration pneumonia, HCAP - possible aspiration pneumonia, recurrent pneumonia due to citrobacter - acute on chronic hypoxic and hypercarbic respiratory failure - intermittent leukocytosis likely due to steroid margination and sepsis - h/o tracheostomy on 08/26/2018 - h/o "Increased mild left apical pneumothorax" per CXR on 09/19/2018; no pneumothorax mentioned on subsequent CXR - h/o pneumomediastinum - h/o VAT on 08/11/2018 - h/o asthma/COPD exacerbation - h/o acute tracheobronchitis - h/o MAC infection but CT chest did not demonstrate features suggestive of this per chart review - h/o HCAP due to citrobacter, based on resp culture on 09/13/2018 - h/o aspergillus in resp culture according to a note by Dr. Lopez, a pulmonlogist at [facility] on 07/25/2018 - h/o elevated 1,3 Eyax-L-tgqprc level = 232 on 08/06/2018 - h/o MSSA septicemia # GI - diarrhea, C diff on 10/09/2018 and 11/11/2018 was negative. 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/2018 - Hypokalemia, recurrent - CKD 2 - BPH # cardiac - tachycardia, persistent - ACD - HTN # endo - T2DM - Hgb A1c 7.2% - secondary adrenal insufficiency; steroid dependent - HLD - Hypoparathyroidism - Hypercalcemia - Pamidronate was ordered # neuro - toxic metabolic encephalopathy - Cervical myopathy - Severe cervical spinal cord stenosis with cord compression from C3-C5, s/p laminectomy in ~03/2018 - Chronic pain syndrome - Functional quadriplegia - Seizure d/o # other chronic conditions - RA with chronic steroid dependence - Immunocompromised status - Fibromyalgia - DDD - H/o multiple rib fracture - Pt completed: meropenem (09/25/2018-10/02/2018), vancomycin (09/25/18-09/28/18), pip/tazo (10/09/2018-10/15/2018) - so far: pneumocystis antigen negative, AFB smear negative and final culture x3 pending, quantiferon TB gold negative, coccidioides serology negative Recommendations: - pending results: blood cultures x2 (NGTD), procalcitonin, 1,1-cmlx-L-glucan, resp culture (GNR and C. albicans) - continue cefepime (restarted 11/10/2018-) - continue daptomycin (11/16/2018-) 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 Pt cannot take linezolid due to its interaction with seroquel - continue Bactrim for pneumocystis PPX Management d/w pt's at bedside, [employer] services program associate Quiana, and with Dr. Nevarez Critical care time spent: 35 min Consultation Date/Type/Reason Admit Date/Time Oct 09, 2018 at 12:16 Initial Consult Date 10/12/18 Type of Consult Infectious Disease Requesting Provider: NLOA VIDAL MD Date/Time of Note DATE: 11/17/18 TIME: 11:41 24 HR Interval Summary Free Text/Dictation Urine cx grew VRE and pt is already on Daptomycin. WBC is trending down. Remains afebrile. FiO2 at 80%. BLE venous doppler is negative for DVT. Flexiseal was removed as pt did no have any more diarrhea per d/w nursing. Exam/Review of Systems Exam Vitals Vital Signs Date Temp Pulse Resp B/P (MAP) Pulse Ox O2 O2 Flow FiO2 Time Delivery Rate 11/17/18 100 24 95 80 11:10 11/17/18 95/59 (71) Mechanical 10:00 Ventilator 11/17/18 99.5 08:00 Intake and Output 11/16/18 11/16/18 11/17/18 1414:59 22:59 06:59 IntakeIntake Total 442.56 ml 592.5 ml 495.5 ml OutputOutput Total 575 ml 395 ml 380 ml BalanceBalance -132.44 ml 197.5 ml 115.5 ml Exam Constitutional: non-verbal, frail, other (chronically debilitated, sleeping) Head: normocephalic, atraumatic Eyes: nl conjunctiva, nl lids ENMT: nl external ears & nose, nl nasal mucosa & septum Neck: other (trach midline) Respiratory: diminished breath sounds, other (FiO2 at 80%) Cardiovascular: other (regular rhythm, tachycardic low 100's) Gastrointestinal: soft, non-tender, other (G-tube with TF in progress; no Flexiseal noted; Chux are b/t pt's legs) Genitourinary - Male: other (Condom catheter in place with yellow urine) Musculoskeletal: other (thin extremities with swollen fingers) Extremities: pitting pedal edema, other (bilateral foot drop); Neurological: lethargic (asleep) Skin: other (stage 2 decub on back - nurses notes and photos reviewed in chart) Results Result Diagram: 11/17/18 0426 11/17/18 0400 Results 24hrs Laboratory Tests Test 11/16/18 12:22 11/16/18 13:06 11/16/18 20:23 11/17/18 01:03 Digoxin Level 1.6 Bedside Glucose 140 124 154 Test 11/17/18 04:00 11/17/18 04:26 Sodium Level 144 Potassium Level 4.0 Chloride Level 99 Carbon Dioxide Level 41 *H Anion Gap 4 L Blood Urea Nitrogen 30 H Creatinine 0.45 L Est Glomerular Filtrat > 60 Rate mL/min Glucose Level 111 Calcium Level 8.0 L Phosphorus Level 3.8 Magnesium Level 2.2 White Blood Count 13.4 H Red Blood Count 2.62 L Hemoglobin 7.3 L Hematocrit 25.8 L Mean Corpuscular Volume 98.5 Mean Corpuscular 27.9 L Hemoglobin Mean Corpuscular 28.3 L Hemoglobin Concent Red Cell Distribution 16.1 H Width Platelet Count 442 H Mean Platelet Volume 10.9 H Immature Granulocytes % 3.100 H Neutrophils % 64.3 Lymphocytes % 6.3 L Monocytes % 11.0 Eosinophils % 14.3 H Basophils % 1.0 Nucleated Red Blood 0.0 Cells % Immature Granulocytes # 0.410 H Neutrophils # 8.6 H Lymphocytes # 0.8 Monocytes # 1.5 H Eosinophils # 1.9 H Basophils # 0.1 Nucleated Red Blood 0.0 Cells # Medications Medication Current Medications Acetaminophen (Tylenol Liquid) 650 mg Q4H PRN GTB MILD PAIN(1-3)OR ELEVATED TEMP Last administered on 11/16/18 12:03; Admin Dose 650 MG; Start 10/09/18 at 14:00 Al Hydrox/Mg Hydrox/Simethicone (Mag-Al Plus) 15 ml Q6H PRN PO GASTROINTESTINAL UPSET Last administered on 10/17/18 13:18; Admin Dose 15 ML; Start 10/09/18 at 14:00 Eye Lubricant (Artificial Tears Oph) 1 drop Q6H PRN BOTH EYES DRY EYES Last administered on 11/03/18 09:33; Admin Dose 1 DROP; Start 10/09/18 at 14:00 Bisacodyl (Dulcolax Supp) 10 mg DAILY PRN [place] CONSTIPATION; Start 10/09/18 at 14:00 Clonidine (Catapres) 0.1 mg DAILY PRN GTB ELEVATED BLOOD PRESSURE; Start 10/09/18 at 14:00 Diltiazem HCl (Cardizem Iv) 5 mg Q4 PRN IV ELEVATED HEART RATE Last administe red on 11/06/18at 18:47; Admin Dose 5 MG; Start 10/09/18 at 14:00 Diphenhydramine HCl (Benadryl Liquid Cup) 25 mg Q6 PRN GTB ITCHING Last administered on 10/22/18 20:25; Admin Dose 25 MG; Start 10/09/18 at 14:00 Duloxetine HCl (Cymbalta) 30 mg DAILY PO Last administered on 11/17/18 09:27; Admin Dose 30 MG; Start 10/10/18 at 09:00 Gabapentin (Neurontin Liquid) 400 mg Q8 GTB Last administered on 11/17/18 05:16; Admin Dose 400 MG; Start 10/09/18 at 15:30 Hydralazine HCl (Apresoline) 10 mg Q4H PRN IV ELEVATED BLOOD PRESSURE; Start 10/09/18 at 14:00 Hydroxychloroquine Sulfate (Plaquenil) 200 mg BID PO Last administered on 11/17/18 09:27; Admin Dose 200 MG; Start 10/09/18 at 21:00 Lactobacillus Acidophilus (Florajen3 Capsule) 1 each BID GTB Last administered on 11/17/18 09:26; Admin Dose 1 EACH; Start 10/09/18 at 21:00 Lansoprazole (Prevacid) 30 mg BID@,18 GTB Last administered on 11/17/18 05:16; Admin Dose 30 MG; Start 10/09/18 at 18:00 Levetiracetam (Keppra Liquid) 500 mg BID GTB Last administered on 11/17/18 09:27; Admin Dose 500 MG; Start 10/09/18 at 21:00 Magnesium Oxide (Mag-Ox 400) 400 mg BID GTB Last administered on 11/17/18 09:24; Admin Dose 400 MG; Start 10/09/18 at 21:00 Metoclopramide HCl (Reglan) 10 mg TID IV Last administered on 11/17/18 09:27; Admin Dose 10 MG; Start 10/09/18 at 21:00 Miconazole Nitrate (Miconazole 2% Cr) 1 applic BID TOP Last administered on 11/17/18 09:29; Admin Dose 1 APPLIC; Start 10/09/18 at 21:00 Miconazole Nitrate (Miconazole 2% Cr) 1 applic Q12 PRN TOP rash; Start 10/09/18 at 14:00 Ondansetron HCl (Zofran Inj) 4 mg Q4H PRN IV NAUSEA AND/OR VOMITING Last administered on 10/19/18 16:37; Admin Dose 4 MG; Start 10/09/18 at 14:00 Polyethylene Glycol (Miralax) 17 gm DAILY PRN GTB CONSTIPATION; Start 10/09/18 at 14:00 Senna (Senokot) 2 tab Q8 PRN PO CONSTIPATION; Start 10/09/18 at 14:00 Trimethoprim/ Sulfamethoxazole (Bactrim Susp) 40 ml DAILY GTB Last administered on 11/17/18 09:24; Admin Dose 40 ML; Start 10/10/18 at 09:00 Zolpidem Tartrate (Ambien) 5 mg HS PRN PO INSOMNIA Last administered on 11/03/18at 01:16; Admin Dose 5 MG; Start 10/09/18 at 14:00 Miscellaneous Information 1 ea NOTE XX ; Start 10/09/18 at 15:00 Glucose (Glutose) 15 gm Q15M PRN PO DECREASED GLUCOSE; Start 10/09/18 at 15:00 Glucose (Glutose) 22.5 gm Q15M PRN PO DECREASED GLUCOSE; Start 10/09/18 at 15:00 Dextrose (D50w Syringe) 25 ml Q15M PRN IV DECREASED GLUCOSE; Start 10/09/18 at 15:00 Dextrose (D50w Syringe) 50 ml Q15M PRN IV DECREASED GLUCOSE; Start 10/09/18 at 15:00 Glucagon (Glucagen) 1 mg Q15M PRN IM DECREASED GLUCOSE; Start 10/09/18 at 15:00 Glucose (Glutose) 15 gm Q15M PRN BUCCAL DECREASED GLUCOSE; Start 10/09/18 at 15:00 Albuterol (Ventolin Hfa) 4 puff Q6H RESP THERAPY INH Last administered on 11/17/18 07:27; Admin Dose 4 PUFF; Start 10/10/18 at 02:00 Ipratropium [place] (Atrovent Hfa) 4 puff Q6H RESP THERAPY INH Last administered on 11/17/18 07:27; Admin Dose 4 PUFF; Start 10/10/18 at 02:00 Quetiapine Fumarate (Seroquel) 100 mg BID GTB Last administered on 11/17/18 09:24; Admin Dose 100 MG; Start 10/21/18 at 21:00 Calcium Carbonate (Ca Carbonate) 1,250 mg QID GTB Last administered on 11/17/18 09:23; Admin Dose 1,250 MG; Start 10/24/18 at 13:00 Metoprolol Tartrate (Lopressor) 5 mg Q4H PRN IV HR>110 Hold SBP<100 Last administered on 11/11/18 18:31; Admin Dose 5 MG; Start 10/28/18 at 12:30 Phenylephrine HCl 40 mg/Dextrose 250 ml @ 37.5 mls/hr TITRATE IV Last administered on 11/02/18 09:05; Admin Dose 11.25 MLS/HR; Start 11/01/18 at 13:30 IV Flush (NS 10 ml) 10 ml PRN PRN IV IV PROTOCOL; Start 11/01/18 at 16:30 Collagenase (Santyl) 1 applic DAILY TOP Last administered on 11/17/18 09:28; Admin Dose 1 APPLIC; Start 11/01/18 at 19:30 Norepinephrine 32 mg/Dextrose 250 ml @ 0.47 mls/hr TITRATE IV Last administered on 11/02/18 12:15; Admin Dose 0.47 MLS/HR; Start 11/02/18 at 11:30 Midodrine (Proamatine) 5 mg TID@,13,17 GTB Last administered on 11/08/18 12:53; Admin Dose 5 MG; Start 11/03/18 at 09:00; Status Hold Guaifenesin (Robitussin Liquid Cup) 100 mg Q4H PRN PO COUGH Last administered on 11/13/18 17:58; Admin Dose 100 MG; Start 11/03/18 at 12:00 Calcitriol (Rocaltrol) 1.5 mcg BID PO Last administered on 11/17/18 09:27; Admin Dose 1.5 MCG; Start 11/07/18 at 21:00 Lorazepam (Ativan) 1 mg Q4 GTB Last administered on 11/17/18 09:26; Admin Dose 1 MG; Start 11/09/18 at 14:00 Carvedilol (Coreg) 6.25 mg BID PO Last administered on 11/17/18 09:26; Admin Dose 6.25 MG; Start 11/09/18 at 21:00 Benazepril HCl (Lotensin) 10 mg DAILY PO Last administered on 11/17/18 09:27; Admin Dose 10 MG; Start 11/10/18 at 09:00 Digoxin (Digoxin) 0.25 mg DAILY@13 PO Last administered on 11/16/18 12:04; Admin Dose 0.25 MG; Start 11/11/18 at 13:00 Furosemide (Lasix) 20 mg DAILY IV Last administered on 11/15/18 08:58; Admin Dose 20 MG; Start 11/10/18 at 12:30; Status Hold Hydromorphone HCl (Dilaudid) 3 mg Q4H PRN PO MODERATE PAIN LEVEL 7-10 Last administered on 11/17/18 01:47; Admin Dose 3 MG; Start 11/10/18 at 22:00 Cefepime HCl 50 ml @ 100 mls/hr Q12 IVPB Last administered on 11/17/18 09:24; Admin Dose 100 MLS/HR; Start 11/10/18 at 23:30 Fentanyl 100 ml @ 2.5 mls/hr TITRATE IV Last administered on 11/16/18 22:22; Admin Dose 5 MLS/HR; Start 11/14/18 at 09:00 Ascorbic Acid (Vitamin C) 250 mg DAILY GTB Last administered on 11/17/18 09:26; Admin Dose 250 MG; Start 11/15/18 at 09:00; Stop 11/29/18 at 09:00 Zinc Sulfate (Zinc Sulfate) 220 mg DAILY GTB Last administered on 11/17/18 09:27; Admin Dose 220 MG; Start 11/15/18 at 09:00; Stop 11/29/18 at 09:00 Miscellaneous Information (*Order Clarification Bulletin) MEDICATION REQUIRES CLARIFICATI... Q8H XX ; Start 11/15/18 at 12:00 Hydrocortisone (Cortef) 15 mg HS PEG Last administered on 11/16/18 20:16; Admin Dose 15 MG; Start 11/15/18 at 21:00 Hydrocortisone (Cortef) 15 mg QAM PEG Last administered on 11/17/18 09:24; Ad min Dose 15 MG; Start 11/16/18 at 09:00 Hydrocortisone (Cortef) 15 mg AC DINNER PEG Last administered on 11/16/18 17:09; Admin Dose 15 MG; Start 11/15/18 at 17:05 Acetazolamide (Diamox) 500 mg DAILY IV Last administered on 11/17/18 09:24; Admin Dose 500 MG; Start 11/16/18 at 09:30 Daptomycin 185 mg/ Sodium Chloride 100 ml @ 200 mls/hr Q24H IVPB Last administered on 11/16/18at 17:58; Admin Dose 200 MLS/HR; Start 11/16/18 at 16:00; Stop 11/21/18 at 15:59 Enoxaparin Sodium (Lovenox) 30 mg DAILY SC Last administered on 11/17/18at 10:31; Admin Dose 30 MG; Start 11/16/18 at 16:00 Insulin Aspart (Novolog Insulin Pen) NOVOLOG *CUSTOM* ALGORITHM Q6 SC ; Start 11/17/18 at 12:00 CATHERINE FISH NP Nov 17, 2018 11:43
--- NOTE | 2018-11-17 12:31 | CONS ---
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 Status: Chronic Comment: Stable on replacement dose though prognosisi is poor (2) Hypoparathyroidism Status: Chronic Comment: on meds to compensate Qualifiers: Hypoparathyroidism type: idiopathic Qualified Codes: E20.0 - Idiopathic hypoparathyroidism Consultation Date/Type/Reason Admit Date/Time Oct 09, 2018 at 12:16 Initial Consult Date 10/12/18 Type of Consult Endocrinology Reason for Consultation Primary hypoparathyroidism; Iatrogenic adrenal insufficiency Requesting Provider: NOLA VIDAL MD Date/Time of Note DATE: 11/17/18 TIME: 12:29 24 HR Interval Summary Subjective hx not possible: pt non-verbal Exam/Review of Systems Exam Vitals Vital Signs Date Temp Pulse Resp B/P (MAP) Pulse Ox O2 O2 Flow FiO2 Time Delivery Rate 11/17/18 100 24 95 80 11:10 11/17/18 95/59 (71) Mechanical 10:00 Ventilator 11/17/18 99.5 08:00 Intake and Output 11/16/18 11/16/18 11/17/18 1515:00 23:00 07:00 IntakeIntake Total 445.06 ml 592.5 ml 445.5 ml OutputOutput Total 550 ml 400 ml 325 ml BalanceBalance -104.94 ml 192.5 ml 120.5 ml Exam No changes Results Result Diagram: 11/17/18 0426 11/17/18 0400 Results 24hrs Laboratory Tests Test 11/16/18 13:06 11/16/18 20:23 11/17/18 01:03 11/17/18 04:00 Bedside Glucose 140 124 154 Sodium Level 144 Potassium Level 4.0 Chloride Level 99 Carbon Dioxide Level 41 *H Anion Gap 4 L Blood Urea Nitrogen 30 H Creatinine 0.45 L Est Glomerular Filtrat > 60 Rate mL/min Glucose Level 111 Calcium Level 8.0 L Phosphorus Level 3.8 Magnesium Level 2.2 Test 11/17/18 04:26 White Blood Count 13.4 H Red Blood Count 2.62 L Hemoglobin 7.3 L Hematocrit 25.8 L Mean Corpuscular Volume 98.5 Mean Corpuscular 27.9 L Hemoglobin Mean Corpuscular 28.3 L Hemoglobin Concent Red Cell Distribution 16.1 H Width Platelet Count 442 H Mean Platelet Volume 10.9 H Immature Granulocytes % 3.100 H Neutrophils % 64.3 Lymphocytes % 6.3 L Monocytes % 11.0 Eosinophils % 14.3 H Basophils % 1.0 Nucleated Red Blood 0.0 Cells % Immature Granulocytes # 0.410 H Neutrophils # 8.6 H Lymphocytes # 0.8 Monocytes # 1.5 H Eosinophils # 1.9 H Basophils # 0.1 Nucleated Red Blood 0.0 Cells # Medications Medication Current Medications Acetaminophen (Tylenol Liquid) 650 mg Q4H PRN GTB MILD PAIN(1-3)OR ELEVATED TEMP Last administered on 11/16/18 12:03; Admin Dose 650 MG; Start 10/09/18 at 14:00 Al Hydrox/Mg Hydrox/Simethicone (Mag-Al Plus) 15 ml Q6H PRN PO GASTROINTESTINAL UPSET Last administered on 10/17/18 13:18; Admin Dose 15 ML; Start 10/09/18 at 14:00 Eye Lubricant (Artificial Tears Oph) 1 drop Q6H PRN BOTH EYES DRY EYES Last administered on 11/03/18 09:33; Admin Dose 1 DROP; Start 10/09/18 at 14:00 Bisacodyl (Dulcolax Supp) 10 mg DAILY PRN [place] CONSTIPATION; Start 10/09/18 at 14:00 Clonidine (Catapres) 0.1 mg DAILY PRN GTB ELEVATED BLOOD PRESSURE; Start 10/09/18 at 14:00 Diltiazem HCl (Cardizem Iv) 5 mg Q4 PRN IV ELEVATED HEART RATE Last administered on 11/06/18 18:47; Admin Dose 5 MG; Start 10/09/18 at 14:00 Diphenhydramine HCl (Benadryl Liquid Cup) 25 mg Q6 PRN GTB ITCHING Last administered on 10/22/18 20:25; Admin Dose 25 MG; Start 10/09/18 at 14:00 Duloxetine HCl (Cymbalta) 30 mg DAILY PO Last administered on 11/17/18 09:27; Admin Dose 30 MG; Start 10/10/18 at 09:00 Gabapentin (Neurontin Liquid) 400 mg Q8 GTB Last administered on 11/17/18 05:16; Admin Dose 400 MG; Start 10/09/18 at 15:30 Hydralazine HCl (Apresoline) 10 mg Q4H PRN IV ELEVATED BLOOD PRESSURE; Start 10/09/18 at 14:00 Hydroxychloroquine Sulfate (Plaquenil) 200 mg BID PO Last administered on 11/17/18 09:27; Admin Dose 200 MG; Start 10/09/18 at 21:00 Lactobacillus Acidophilus (Florajen3 Capsule) 1 each BID GTB Last administered on 11/17/18 09:26; Admin Dose 1 EACH; Start 10/09/18 at 21:00 Lansoprazole (Prevacid) 30 mg BID@06,18 GTB Last administered on 11/17/18 05:16; Admin Dose 30 MG; Start 10/09/18 at 18:00 Levetiracetam (Keppra Liquid) 500 mg BID GTB Last administered on 11/17/18 09:27; Admin Dose 500 MG; Start 10/09/18 at 21:00 Magnesium Oxide (Mag-Ox 400) 400 mg BID GTB Last administered on 11/17/18 09:24; Admin Dose 400 MG; Start 10/09/18 at 21:00 Metoclopramide HCl (Reglan) 10 mg TID IV Last administered on 11/17/18 09:27; Admin Dose 10 MG; Start 10/09/18 at 21:00 Miconazole Nitrate (Miconazole 2% Cr) 1 applic BID TOP Last administered on 11/17/18 09:29; Admin Dose 1 APPLIC; Start 10/09/18 at 21:00 Miconazole Nitrate (Miconazole 2% Cr) 1 applic Q12 PRN TOP rash; Start 10/09/18 at 14:00 Ondansetron HCl (Zofran Inj) 4 mg Q4H PRN IV NAUSEA AND/OR VOMITING Last administered on 10/19/18 16:37; Admin Dose 4 MG; Start 10/09/18 at 14:00 Polyethylene Glycol (Miralax) 17 gm DAILY PRN GTB CONSTIPATION; Start 10/09/18 at 14:00 Senna (Senokot) 2 tab Q8 PRN PO CONSTIPATION; Start 10/09/18 at 14:00 Trimethoprim/ Sulfamethoxazole (Bactrim Susp) 40 ml DAILY GTB Last administered on 11/17/18 09:24; Admin Dose 40 ML; Start 10/10/18 at 09:00 Zolpidem Tartrate (Ambien) 5 mg HS PRN PO INSOMNIA Last administered on 11/03/18 01:16; Admin Dose 5 MG; Start 10/09/18 at 14:00 Miscellaneous Information 1 ea NOTE XX ; Start 10/09/18 at 15:00 Glucose (Glutose) 15 gm Q15M PRN PO DECREASED GLUCOSE; Start 10/09/18 at 15:00 Glucose (Glutose) 22.5 gm Q15M PRN PO DECREASED GLUCOSE; Start 10/09/18 at 15:00 Dextrose (D50w Syringe) 25 ml Q15M PRN IV DECREASED GLUCOSE; Start 10/09/18 at 15:00 Dextrose (D50w Syringe) 50 ml Q15M PRN IV DECREASED GLUCOSE; Start 10/09/18 at 15:00 Glucagon (Glucagen) 1 mg Q15M PRN IM DECREASED GLUCOSE; Start 10/09/18 at 15:00 Glucose (Glutose) 15 gm Q15M PRN BUCCAL DECREASED GLUCOSE; Start 10/09/18 at 15:00 Albuterol (Ventolin Hfa) 4 puff Q6H RESP THERAPY INH Last administered on 11/17/18 07:27; Admin Dose 4 PUFF; Start 10/10/18 at 02:00 Ipratropium [place] (Atrovent Hfa) 4 puff Q6H RESP THERAPY INH Last administered on 11/17/18 07:27; Admin Dose 4 PUFF; Start 10/10/18 at 02:00 Quetiapine Fumarate (Seroquel) 100 mg BID GTB Last administered on 11/17/18 09:24; Admin Dose 100 MG; Start 10/21/18 at 21:00 Calcium Carbonate (Ca Carbonate) 1,250 mg QID GTB Last administered on 11/17/18 09:23; Admin Dose 1,250 MG; Start 10/24/18 at 13:00 Metoprolol Tartrate (Lopressor) 5 mg Q4H PRN IV HR>110 Hold SBP<100 Last administered on 11/11/18 18:31; Admin Dose 5 MG; Start 10/28/18 at 12:30 Phenylephrine HCl 40 mg/Dextrose 250 ml @ 37.5 mls/hr TITRATE IV Last administered on 11/02/18 09:05; Admin Dose 11.25 MLS/HR; Start 11/01/18 at 13:30 IV Flush (NS 10 ml) 10 ml PRN PRN IV IV PROTOCOL; Start 11/01/18 at 16:30 Collagenase (Santyl) 1 applic DAILY TOP Last administered on 11/17/18 09:28; Admin Dose 1 APPLIC; Start 11/01/18 at 19:30 Norepinephrine 32 mg/Dextrose 250 ml @ 0.47 mls/hr TITRATE IV Last administered on 11/02/18 12:15; Admin Dose 0.47 MLS/HR; Start 11/02/18 at 11:30 Midodrine (Proamatine) 5 mg TID@,13,17 GTB Last administered on 11/08/18 12:53; Admin Dose 5 MG; Start 11/03/18 at 09:00; Status Hold Guaifenesin (Robitussin Liquid Cup) 100 mg Q4H PRN PO COUGH Last administered on 11/13/18 17:58; Admin Dose 100 MG; Start 11/03/18 at 12:00 Calcitriol (Rocaltrol) 1.5 mcg BID PO Last administered on 11/17/18 09:27; Admin Dose 1.5 MCG; Start 11/07/18 at 21:00 Lorazepam (Ativan) 1 mg Q4 GTB Last administered on 11/17/18 09:26; Admin Dose 1 MG; Start 11/09/18 at 14:00 Carvedilol (Coreg) 6.25 mg BID PO Last administered on 11/17/18 09:26; Admin Dose 6.25 MG; Start 11/09/18 at 21:00 Benazepril HCl (Lotensin) 10 mg DAILY PO Last administered on 11/17/18 09:27; Admin Dose 10 MG; Start 11/10/18 at 09:00 Digoxin (Digoxin) 0.25 mg DAILY@13 PO Last administered on 11/16/18 12:04; Admin Dose 0.25 MG; Start 11/11/18 at 13:00 Furosemide (Lasix) 20 mg DAILY IV Last administered on 11/15/18 08:58; Admin Dose 20 MG; Start 11/10/18 at 12:30; Status Hold Hydromorphone HCl (Dilaudid) 3 mg Q4H PRN PO MODERATE PAIN LEVEL 7-10 Last administered on 11/17/18 01:47; Admin Dose 3 MG; Start 11/10/18 at 22:00 Cefepime HCl 50 ml @ 100 mls/hr Q12 IVPB Last administered on 11/17/18 09:24; Admin Dose 100 MLS/HR; Start 11/10/18 at 23:30 Fentanyl 100 ml @ 2.5 mls/hr TITRATE IV Last administered on 11/16/18 22:22; Admin Dose 5 MLS/HR; Start 11/14/18 at 09:00 Ascorbic Acid (Vitamin C) 250 mg DAILY GTB Last administered on 11/17/18 09:26; Admin Dose 250 MG; Start 11/15/18 at 09:00; Stop 11/29/18 at 09:00 Zinc Sulfate (Zinc Sulfate) 220 mg DAILY GTB Last administered on 11/17/18 09:27; Admin Dose 220 MG; Start 11/15/18 at 09:00; Stop 11/29/18 at 09:00 Miscellaneous Information (*Order Clarification Bulletin) MEDICATION REQUIRES CLARIFICATI... Q8H XX ; Start 11/15/18 at 12:00 Hydrocortisone (Cortef) 15 mg HS PEG Last administered on 11/16/18 20:16; Admin Dose 15 MG; Start 11/15/18 at 21:00 Hydrocortisone (Cortef) 15 mg QAM PEG Last administered on 11/17/18 09:24; Admin Dose 15 MG; Start 11/16/18 at 09:00 Hydrocortisone (Cortef) 15 mg AC DINNER PEG Last administered on 11/16/18 17:09; Admin Dose 15 MG; Start 11/15/18 at 17:05 Acetazolamide (Diamox) 500 mg DAILY IV Last administered on 11/17/18 09:24; Admin Dose 500 MG; Start 11/16/18 at 09:30 Daptomycin 185 mg/ Sodium Chloride 100 ml @ 200 mls/hr Q24H IVPB Last administered on 11/16/18 17:58; Admin Dose 200 MLS/HR; Start 11/16/18 at 16:00; Stop 11/21/18 at 15:59 Enoxaparin Sodium (Lovenox) 30 mg DAILY SC Last administered on 4/4/19at 10:31; Admin Dose 30 MG; Start 11/16/18 at 16:00 Insulin Aspart (Novolog Insulin Pen) NOVOLOG *CUSTOM* ALGORITHM Q6 SC ; Start 11/17/18 at 12:00 KEV ISSA MD Nov 17, 2018 12:31
[2018-11-17] MEDS: DIGOXIN 0.25 MG TAB PO SCH (13:00)
--- NOTE | 2018-11-17 13:15 | CONS ---
Assessment/Plan Cardiology Heart Failure Type: Acute on Chronic Heart Failure Type: Systolic Assessment/Plan Hospital Course (Demo Recall) IMPRESSION: 1. Tachycardia- S tach. Ongoing Likley due to anxiety/infection/cardiomyopathy, multifactorial. Overall improved today 2. Hypotension-now off pressors with HTN but labile 3. Abnormal electrocardiogram at baseline. 4. Chronic respiratory failure, status post tracheostomy.-weaning vent support 5. Dysphagia, status post G-tube. 6. Quadriplegia. 7. Renal insufficiency, on steroids. 8. Chronic obstructive pulmonary disease. 9. Rheumatoid arthritis. 10. Chronic kidney disease. 11. Diabetes mellitus. 12.Adrenal insufficiency 14. cardiomyopathy-EF 35-40% by echo this admit Recc -ICU -Ongoing Vent support with inability to wean from High percentage FI02 -Continue abx's and f/u cx data -continue steroids -Follow volume status -Continue coreg and ACEI as tolerated -Continue now po digoxin and follow HR closely -Continue gentle lasix diuresis -started on fentanyl drip for patient comfort/tachypnea -Hold digoxin given elevated level -Now DNR Consultation Date/Type/Reason Admit Date/Time Oct 09, 2018 at 12:16 Initial Consult Date 10/09/18 Type of Consult Cardiology Reason for Consultation cardiomyopathy/tachycardia Requesting Provider: NOLA VIDAL MD Date/Time of Note DATE: 11/17/18 TIME: 13:09 Exam/Review of Systems Vital Signs Vitals Vital Signs Date Temp Pulse Resp B/P (MAP) Pulse Ox O2 O2 Flow FiO2 Time Delivery Rate 11/17/18 102 12:00 11/17/18 24 95 80 11:10 11/17/18 95/59 (71) Mechanical 10:00 Ventilator 11/17/18 99.5 08:00 Intake and Output 11/16/18 11/16/18 11/17/18 1515:00 23:00 07:00 IntakeIntake Total 445.06 ml 592.5 ml 445.5 ml OutputOutput Total 550 ml 400 ml 325 ml BalanceBalance -104.94 ml 192.5 ml 120.5 ml Exam Exam Review of Systems: CONSTITUTIONAL: No fevers, chills. PULMONARY: No sob CARDIOVASCULAR: No chest pain/palpitations GASTROINTESTINAL: No nausea/vomiting. GENITOURINARY: No hematuria/dysuria. MUSCULOSKELETAL: No myagias/arthalgias. PSYCHIATRIC: The patient denies depression. NEUROLOGIC: No weakness Constitutional: alert Psych: no complaints Head: normocephalic ENMT: mucosa pink and moist Neck: supple, jvd (9 cm water) Respiratory: diminished breath sounds (at bases/B) Cardiovascular: other (tachycardic, regular rhythm) Gastrointestinal: soft, non-tender Extremities: edema (trace/B) Labs Result Diagram: 11/17/18 0426 11/17/18 0400 Results 24hrs Laboratory Tests Test 11/16/18 20:23 11/17/18 01:03 11/17/18 04:00 11/17/18 04:26 Bedside Glucose 124 154 Sodium Level 144 Potassium Level 4.0 Chloride Level 99 Carbon Dioxide Level 41 *H Anion Gap 4 L Blood Urea Nitrogen 30 H Creatinine 0.45 L Est Glomerular Filtrat > 60 Rate mL/min Glucose Level 111 Calcium Level 8.0 L Phosphorus Level 3.8 Magnesium Level 2.2 White Blood Count 13.4 H Red Blood Count 2.62 L Hemoglobin 7.3 L Hematocrit 25.8 L Mean Corpuscular Volume 98.5 Mean Corpuscular 27.9 L Hemoglobin Mean Corpuscular 28.3 L Hemoglobin Concent Red Cell Distribution 16.1 H Width Platelet Count 442 H Mean Platelet Volume 10.9 H Immature Granulocytes % 3.100 H Neutrophils % 64.3 Lymphocytes % 6.3 L Monocytes % 11.0 Eosinophils % 14.3 H Basophils % 1.0 Nucleated Red Blood 0.0 Cells % Immature Granulocytes # 0.410 H Neutrophils # 8.6 H Lymphocytes # 0.8 Monocytes # 1.5 H Eosinophils # 1.9 H Basophils # 0.1 Nucleated Red Blood 0.0 Cells # Test 11/17/18 12:59 Bedside Glucose 152 Medications Medications Current Medications Acetaminophen (Tylenol Liquid) 650 mg Q4H PRN GTB MILD PAIN(1-3)OR ELEVATED TEMP Last administered on 11/16/18at 12:03; Admin Dose 650 MG; Start 10/09/18 at 14:00 Al Hydrox/Mg Hydrox/Simethicone (Mag-Al Plus) 15 ml Q6H PRN PO GASTROINTESTINAL UPSET Last administered on 10/17/18at 13:18; Admin Dose 15 ML; Start 10/09/18 at 14:00 Eye Lubricant (Artificial Tears Oph) 1 drop Q6H PRN BOTH EYES DRY EYES Last administered on 11/03/18 09:33; Admin Dose 1 DROP; Start 10/09/18 at 14:00 Bisacodyl (Dulcolax Supp) 10 mg DAILY PRN [place] CONSTIPATION; Start 10/09/18 at 14:00 Clonidine (Catapres) 0.1 mg DAILY PRN GTB ELEVATED BLOOD PRESSURE; Start 10/09/18 at 14:00 Diltiazem HCl (Cardizem Iv) 5 mg Q4 PRN IV ELEVATED HEART RATE Last administ ered on 11/06/18 18:47; Admin Dose 5 MG; Start 10/09/18 at 14:00 Diphenhydramine HCl (Benadryl Liquid Cup) 25 mg Q6 PRN GTB ITCHING Last administered on 10/22/18 20:25; Admin Dose 25 MG; Start 10/09/18 at 14:00 Duloxetine HCl (Cymbalta) 30 mg DAILY PO Last administered on 11/17/18 09:27; Admin Dose 30 MG; Start 10/10/18 at 09:00 Gabapentin (Neurontin Liquid) 400 mg Q8 GTB Last administered on 11/17/18 05:16; Admin Dose 400 MG; Start 10/09/18 at 15:30 Hydralazine HCl (Apresoline) 10 mg Q4H PRN IV ELEVATED BLOOD PRESSURE; Start 10/09/18 at 14:00 Hydroxychloroquine Sulfate (Plaquenil) 200 mg BID PO Last administered on 11/17/18 09:27; Admin Dose 200 MG; Start 10/09/18 at 21:00 Lactobacillus Acidophilus (Florajen3 Capsule) 1 each BID GTB Last administered on 11/17/18 09:26; Admin Dose 1 EACH; Start 10/09/18 at 21:00 Lansoprazole (Prevacid) 30 mg BID@,18 GTB Last administered on 11/17/18 05:16; Admin Dose 30 MG; Start 10/09/18 at 18:00 Levetiracetam (Keppra Liquid) 500 mg BID GTB Last administered on 11/17/18 09:27; Admin Dose 500 MG; Start 10/09/18 at 21:00 Magnesium Oxide (Mag-Ox 400) 400 mg BID GTB Last administered on 11/17/18 09:24; Admin Dose 400 MG; Start 10/09/18 at 21:00 Metoclopramide HCl (Reglan) 10 mg TID IV Last administered on 11/17/18 09:27; Admin Dose 10 MG; Start 10/09/18 at 21:00 Miconazole Nitrate (Miconazole 2% Cr) 1 applic BID TOP Last administered on 11/17/18 09:29; Admin Dose 1 APPLIC; Start 10/09/18 at 21:00 Miconazole Nitrate (Miconazole 2% Cr) 1 applic Q12 PRN TOP rash; Start 10/09/18 at 14:00 Ondansetron HCl (Zofran Inj) 4 mg Q4H PRN IV NAUSEA AND/OR VOMITING Last administered on 10/19/18 16:37; Admin Dose 4 MG; Start 10/09/18 at 14:00 Polyethylene Glycol (Miralax) 17 gm DAILY PRN GTB CONSTIPATION; Start 10/09/18 at 14:00 Senna (Senokot) 2 tab Q8 PRN PO CONSTIPATION; Start 10/09/18 at 14:00 Trimethoprim/ Sulfamethoxazole (Bactrim Susp) 40 ml DAILY GTB Last administered on 11/17/18 09:24; Admin Dose 40 ML; Start 10/10/18 at 09:00 Zolpidem Tartrate (Ambien) 5 mg HS PRN PO INSOMNIA Last administered on 11/03/18 01:16; Admin Dose 5 MG; Start 10/09/18 at 14:00 Miscellaneous Information 1 ea NOTE XX ; Start 10/09/18 at 15:00 Glucose (Glutose) 15 gm Q15M PRN PO DECREASED GLUCOSE; Start 10/09/18 at 15:00 Glucose (Glutose) 22.5 gm Q15M PRN PO DECREASED GLUCOSE; Start 10/09/18 at 15:00 Dextrose (D50w Syringe) 25 ml Q15M PRN IV DECREASED GLUCOSE; Start 10/09/18 at 15:00 Dextrose (D50w Syringe) 50 ml Q15M PRN IV DECREASED GLUCOSE; Start 10/09/18 at 15:00 Glucagon (Glucagen) 1 mg Q15M PRN IM DECREASED GLUCOSE; Start 10/09/18 at 15:00 Glucose (Glutose) 15 gm Q15M PRN BUCCAL DECREASED GLUCOSE; Start 10/09/18 at 15:00 Albuterol (Ventolin Hfa) 4 puff Q6H RESP THERAPY INH Last administered on 11/17/18 07:27; Admin Dose 4 PUFF; Start 10/10/18 at 02:00 Ipratropium [place] (Atrovent Hfa) 4 puff Q6H RESP THERAPY INH Last administered on 11/17/18 07:27; Admin Dose 4 PUFF; Start 10/10/18 at 02:00 Quetiapine Fumarate (Seroquel) 100 mg BID GTB Last administered on 11/17/18 09:24; Admin Dose 100 MG; Start 10/21/18 at 21:00 Calcium Carbonate (Ca Carbonate) 1,250 mg QID GTB Last administered on 11/17/18 09:23; Admin Dose 1,250 MG; Start 10/24/18 at 13:00 Metoprolol Tartrate (Lopressor) 5 mg Q4H PRN IV HR>110 Hold SBP<100 Last administered on 11/11/18 18:31; Admin Dose 5 MG; Start 10/28/18 at 12:30 Phenylephrine HCl 40 mg/Dextrose 250 ml @ 37.5 mls/hr TITRATE IV Last administered on 11/02/18 09:05; Admin Dose 11.25 MLS/HR; Start 11/01/18 at 13:30 IV Flush (NS 10 ml) 10 ml PRN PRN IV IV PROTOCOL; Start 11/01/18 at 16:30 Collagenase (Santyl) 1 applic DAILY TOP Last administered on 11/17/18 09:28; Admin Dose 1 APPLIC; Start 11/01/18 at 19:30 Norepinephrine 32 mg/Dextrose 250 ml @ 0.47 mls/hr TITRATE IV Last administered on 11/02/18 12:15; Admin Dose 0.47 MLS/HR; Start 11/02/18 at 11:30 Midodrine (Proamatine) 5 mg TID@,13,17 GTB Last administered on 11/08/18 12:53; Admin Dose 5 MG; Start 11/03/18 at 09:00; Status Hold Guaifenesin (Robitussin Liquid Cup) 100 mg Q4H PRN PO COUGH Last administered on 11/13/18 17:58; Admin Dose 100 MG; Start 11/03/18 at 12:00 Calcitriol (Rocaltrol) 1.5 mcg BID PO Last administered on 11/17/18:27; Admin Dose 1.5 MCG; Start 11/07/18 at 21:00 Lorazepam (Ativan) 1 mg Q4 GTB Last administered on 11/17/18 09:26; Admin Dose 1 MG; Start 11/09/18 at 14:00 Carvedilol (Coreg) 6.25 mg BID PO Last administered on 11/17/18:; Admin Dose 6.25 MG; Start 11/09/18 at 21:00 Benazepril HCl (Lotensin) 10 mg DAILY PO Last administered on 11/17/18:; Admin Dose 10 MG; Start 11/10/18 at 09:00 Digoxin (Digoxin) 0.25 mg DAILY@13 PO Last administered on 11/16/18 12:04; Admin Dose 0.25 MG; Start 11/11/18 at 13:00 Furosemide (Lasix) 20 mg DAILY IV Last administered on 11/15/18 08:58; Admin Dose 20 MG; Start 11/10/18 at 12:30; Status Hold Hydromorphone HCl (Dilaudid) 3 mg Q4H PRN PO MODERATE PAIN LEVEL 7-10 Last administered on 11/17/18 01:47; Admin Dose 3 MG; Start 11/10/18 at 22:00 Cefepime HCl 50 ml @ 100 mls/hr Q12 IVPB Last administered on 11/17/18 09:24; Admin Dose 100 MLS/HR; Start 11/10/18 at 23:30 Fentanyl 100 ml @ 2.5 mls/hr TITRATE IV Last administered on 11/16/18 22:22; Admin Dose 5 MLS/HR; Start 11/14/18 at 09:00 Ascorbic Acid (Vitamin C) 250 mg DAILY GTB Last administered on 11/17/18:26; Admin Dose 250 MG; Start 11/15/18 at 09:00; Stop 11/29/18 at 09:00 Zinc Sulfate (Zinc Sulfate) 220 mg DAILY GTB Last administered on 11/17/18:27; Admin Dose 220 MG; Start 11/15/18 at 09:00; Stop 11/29/18 at 09:00 Hydrocortisone (Cortef) 15 mg HS PEG Last administered on 11/16/18at 20:16; Admin Dose 15 MG; Start 11/15/18 at 21:00 Hydrocortisone (Cortef) 15 mg QAM PEG Last administered on 11/17/18 09:24; Admin Dose 15 MG; Start 11/16/18 at 09:00 Hydrocortisone (Cortef) 15 mg AC DINNER PEG Last administered on 11/16/18at 17:09; Admin Dose 15 MG; Start 11/15/18 at 17:05 Acetazolamide (Diamox) 500 mg DAILY IV Last administered on 11/17/18 09:24; Admin Dose 500 MG; Start 11/16/18 at 09:30 Daptomycin 185 mg/ Sodium Chloride 100 ml @ 200 mls/hr Q24H IVPB Last administered on 11/16/18at 17:58; Admin Dose 200 MLS/HR; Start 11/16/18 at 16:00; Stop 11/21/18 at 15:59 Enoxaparin Sodium (Lovenox) 30 mg DAILY SC Last administered on 11/17/18at 10:31; Admin Dose 30 MG; Start 11/16/18 at 16:00 Insulin Aspart (Novolog Insulin Pen) NOVOLOG *CUSTOM* ALGORITHM Q6 SC ; Start 11/17/18 at 12:00 Linagliptin (Tradjenta) 5 mg DAILY PO ; Start 11/18/18 at 09:00 BRISA HAQUE Nov 17, 2018 13:15
--- NOTE | 2018-11-17 13:39 | PN ---
Date/Time of Note Date/Time of Note DATE: 11/17/18 TIME: 13:33 Assessment/Plan VTE Prophylaxis Risk score (from Nsg)>0 risk: 8 SCD applied (from Nsg): Yes Pharmacological prophylaxis: LMWH Lines/Catheters IV Catheter Type (from Nrsg): PICC Line Central line still needed: Yes Urinary Cath still in place: No Assessment/Plan Hospital Course Patient is critically ill, continues on ventilatory support with high oxygen requirements and high PEEP, on fentanyl drip for pain. It was a low-grade fever and tachycardia. Discussed with Dr. Zurita who is following patient in palliative care consultation, in view of patient declining status family is planning patient's daughter wedding tomorrow at the bedside. Assessment/Plan - Acute on chronic hypoxemic respiratory failure with underlying ARDS, continue ventilatory support. Dr. Villa is following in pulmonology consultation. - Recurrent sepsis secondary to pneumonia and UTI. Continue antibiotics per ID. Dr. Canales is following in infection disease consultation. - Acute kidney injury, resolved, continue to monitor BUN and creatinine. Dr. Hobson is following in nephrology consultation. - Tachycardia, Dr. Joshi is following in cardiology consultation. - Cardiomyopathy with EF 35-40% - Rheumatoid arthritis with steroid dependence. - Dysphagia. Continue GT feeding. - Anemia of chronic disease. - Hypoparathyroidism - Hypertension. - Functional quadriplegia - Hx of severe cervical spinal cord stenosis with cord compression from C3-C5, s/p laminectomy. - History of fibromyalgia rheumatica - Hx of VAT on 08/11/2018 - Poor prognosis, Dr. Zurita is following in palliative care consultation. - DNR status Critical care time spent 30 minutes. Further recommendations based on clinical course. Plan of care discussed with Dr. Rosales Result Diagram: 11/17/18 0426 11/17/18 0400 Results 24hrs Laboratory Tests Test 11/16/18 20:23 11/17/18 01:03 11/17/18 04:00 11/17/18 04:26 Bedside Glucose 124 154 Sodium Level 144 Potassium Level 4.0 Chloride Level 99 Carbon Dioxide Level 41 *H Anion Gap 4 L Blood Urea Nitrogen 30 H Creatinine 0.45 L Est Glomerular Filtrat > 60 Rate mL/min Glucose Level 111 Calcium Level 8.0 L Phosphorus Level 3.8 Magnesium Level 2.2 White Blood Count 13.4 H Red Blood Count 2.62 L Hemoglobin 7.3 L Hematocrit 25.8 L Mean Corpuscular Volume 98.5 Mean Corpuscular 27.9 L Hemoglobin Mean Corpuscular 28.3 L Hemoglobin Concent Red Cell Distribution 16.1 H Width Platelet Count 442 H Mean Platelet Volume 10.9 H Immature Granulocytes % 3.100 H Neutrophils % 64.3 Lymphocytes % 6.3 L Monocytes % 11.0 Eosinophils % 14.3 H Basophils % 1.0 Nucleated Red Blood 0.0 Cells % Immature Granulocytes # 0.410 H Neutrophils # 8.6 H Lymphocytes # 0.8 Monocytes # 1.5 H Eosinophils # 1.9 H Basophils # 0.1 Nucleated Red Blood 0.0 Cells # Test 11/17/18 12:59 Bedside Glucose 152 Exam/Review of Systems Exam Vitals Vital Signs Date Temp Pulse Resp B/P (MAP) Pulse Ox O2 O2 Flow FiO2 Time Delivery Rate 11/17/18 102 12:00 11/17/18 24 95 80 11:10 11/17/18 95/59 (71) Mechanical 10:00 Ventilator 11/17/18 99.5 08:00 Intake and Output 11/16/18 11/16/18 11/17/18 1515:00 23:00 07:00 IntakeIntake Total 445.06 ml 592.5 ml 445.5 ml OutputOutput Total 550 ml 400 ml 325 ml BalanceBalance -104.94 ml 192.5 ml 120.5 ml Exam Constitutional: lethargic, frail Neck: other (trach) Respiratory: diminished breath sounds Cardiovascular: regular rate and rhythm Gastrointestinal: soft, non-tender, other Neurological: nl mental status Results Results 24hrs Laboratory Tests Test 11/16/18 20:23 11/17/18 01:03 11/17/18 04:00 11/17/18 04:26 Bedside Glucose 124 154 Sodium Level 144 Potassium Level 4.0 Chloride Level 99 Carbon Dioxide Level 41 *H Anion Gap 4 L Blood Urea Nitrogen 30 H Creatinine 0.45 L Est Glomerular Filtrat > 60 Rate mL/min Glucose Level 111 Calcium Level 8.0 L Phosphorus Level 3.8 Magnesium Level 2.2 White Blood Count 13.4 H Red Blood Count 2.62 L Hemoglobin 7.3 L Hematocrit 25.8 L Mean Corpuscular Volume 98.5 Mean Corpuscular 27.9 L Hemoglobin Mean Corpuscular 28.3 L Hemoglobin Concent Red Cell Distribution 16.1 H Width Platelet Count 442 H Mean Platelet Volume 10.9 H Immature Granulocytes % 3.100 H Neutrophils % 64.3 Lymphocytes % 6.3 L Monocytes % 11.0 Eosinophils % 14.3 H Basophils % 1.0 Nucleated Red Blood 0.0 Cells % Immature Granulocytes # 0.410 H Neutrophils # 8.6 H Lymphocytes # 0.8 Monocytes # 1.5 H Eosinophils # 1.9 H Basophils # 0.1 Nucleated Red Blood 0.0 Cells # Test 11/17/18 12:59 Bedside Glucose 152 Medications Medication Current Medications Acetaminophen (Tylenol Liquid) 650 mg Q4H PRN GTB MILD PAIN(1-3)OR ELEVATED TEMP Last administered on 11/16/18 12:03; Admin Dose 650 MG; Start 10/09/18 at 14:00 Al Hydrox/Mg Hydrox/Simethicone (Mag-Al Plus) 15 ml Q6H PRN PO GASTROINTESTINAL UPSET Last administered on 10/17/18 13:18; Admin Dose 15 ML; Start 10/09/18 at 14:00 Eye Lubricant (Artificial Tears Oph) 1 drop Q6H PRN BOTH EYES DRY EYES Last administered on 11/03/18 09:33; Admin Dose 1 DROP; Start 10/09/18 at 14:00 Bisacodyl (Dulcolax Supp) 10 mg DAILY PRN [place] CONSTIPATION; Start 10/09/18 at 14:00 Clonidine (Catapres) 0.1 mg DAILY PRN GTB ELEVATED BLOOD PRESSURE; Start 10/09/18 at 14:00 Diltiazem HCl (Cardizem Iv) 5 mg Q4 PRN IV ELEVATED HEART RATE Last administered on 11/06/18 18:47; Admin Dose 5 MG; Start 10/09/18 at 14:00 Diphenhydramine HCl (Benadryl Liquid Cup) 25 mg Q6 PRN GTB ITCHING Last administered on 10/22/18 20:25; Admin Dose 25 MG; Start 10/09/18 at 14:00 Duloxetine HCl (Cymbalta) 30 mg DAILY PO Last administered on 11/17/18 09:27; Admin Dose 30 MG; Start 10/10/18 at 09:00 Gabapentin (Neurontin Liquid) 400 mg Q8 GTB Last administered on 11/17/18 05:16; Admin Dose 400 MG; Start 10/09/18 at 15:30 Hydralazine HCl (Apresoline) 10 mg Q4H PRN IV ELEVATED BLOOD PRESSURE; Start at 14:00 Hydroxychloroquine Sulfate (Plaquenil) 200 mg BID PO Last administered on 11/17/18 09:27; Admin Dose 200 MG; Start 10/09/18 at 21:00 Lactobacillus Acidophilus (Florajen3 Capsule) 1 each BID GTB Last administered on 11/17/18 09:26; Admin Dose 1 EACH; Start 10/09/18 at 21:00 Lansoprazole (Prevacid) 30 mg BID@,18 GTB Last administered on 11/17/18 05:16; Admin Dose 30 MG; Start 10/09/18 at 18:00 Levetiracetam (Keppra Liquid) 500 mg BID GTB Last administered on 11/17/18 09:27; Admin Dose 500 MG; Start 10/09/18 at 21:00 Magnesium Oxide (Mag-Ox 400) 400 mg BID GTB Last administered on 11/17/18 09:24; Admin Dose 400 MG; Start 10/09/18 at 21:00 Metoclopramide HCl (Reglan) 10 mg TID IV Last administered on 11/17/18 09:27; Admin Dose 10 MG; Start 10/09/18 at 21:00 Miconazole Nitrate (Miconazole 2% Cr) 1 applic BID TOP Last administered on 11/17/18 09:29; Admin Dose 1 APPLIC; Start 10/09/18 at 21:00 Miconazole Nitrate (Miconazole 2% Cr) 1 applic Q12 PRN TOP rash; Start 10/09/18 at 14:00 Ondansetron HCl (Zofran Inj) 4 mg Q4H PRN IV NAUSEA AND/OR VOMITING Last administered on 10/19/18 16:37; Admin Dose 4 MG; Start 10/09/18 at 14:00 Polyethylene Glycol (Miralax) 17 gm DAILY PRN GTB CONSTIPATION; Start 10/09/18 at 14:00 Senna (Senokot) 2 tab Q8 PRN PO CONSTIPATION; Start 10/09/18 at 14:00 Trimethoprim/ Sulfamethoxazole (Bactrim Susp) 40 ml DAILY GTB Last administered on 11/17/18 09:24; Admin Dose 40 ML; Start 10/10/18 at 09:00 Zolpidem Tartrate (Ambien) 5 mg HS PRN PO INSOMNIA Last administered on 11/03/18 01:16; Admin Dose 5 MG; Start 10/09/18 at 14:00 Miscellaneous Information 1 ea NOTE XX ; Start 10/09/18 at 15:00 Glucose (Glutose) 15 gm Q15M PRN PO DECREASED GLUCOSE; Start 10/09/18 at 15:00 Glucose (Glutose) 22.5 gm Q15M PRN PO DECREASED GLUCOSE; Start 10/09/18 at 15:00 Dextrose (D50w Syringe) 25 ml Q15M PRN IV DECREASED GLUCOSE; Start 10/09/18 at 15:00 Dextrose (D50w Syringe) 50 ml Q15M PRN IV DECREASED GLUCOSE; Start 10/09/18 at 15:00 Glucagon (Glucagen) 1 mg Q15M PRN IM DECREASED GLUCOSE; Start 10/09/18 at 15:00 Glucose (Glutose) 15 gm Q15M PRN BUCCAL DECREASED GLUCOSE; Start 10/09/18 at 15:00 Albuterol (Ventolin Hfa) 4 puff Q6H RESP THERAPY INH Last administered on 11/17/18 13:30; Admin Dose 4 PUFF; Start 10/10/18 at 02:00 Ipratropium [place] (Atrovent Hfa) 4 puff Q6H RESP THERAPY INH Last administered on 11/17/18 13:30; Admin Dose 4 PUFF; Start 10/10/18 at 02:00 Quetiapine Fumarate (Seroquel) 100 mg BID GTB Last administered on 11/17/18 09:24; Admin Dose 100 MG; Start 10/21/18 at 21:00 Calcium Carbonate (Ca Carbonate) 1,250 mg QID GTB Last administered on 11/17/18 09:23; Admin Dose 1,250 MG; Start 10/24/18 at 13:00 Metoprolol Tartrate (Lopressor) 5 mg Q4H PRN IV HR>110 Hold SBP<100 Last administered on 11/11/18 18:31; Admin Dose 5 MG; Start 10/28/18 at 12:30 Phenylephrine HCl 40 mg/Dextrose 250 ml @ 37.5 mls/hr TITRATE IV Last administered on 11/02/18 09:05; Admin Dose 11.25 MLS/HR; Start 11/01/18 at 13:30 IV Flush (NS 10 ml) 10 ml PRN PRN IV IV PROTOCOL; Start 11/01/18 at 16:30 Collagenase (Santyl) 1 applic DAILY TOP Last administered on 11/17/18 09:28; Admin Dose 1 APPLIC; Start 11/01/18 at 19:30 Norepinephrine 32 mg/Dextrose 250 ml @ 0.47 mls/hr TITRATE IV Last administered on 11/02/18 12:15; Admin Dose 0.47 MLS/HR; Start 11/02/18 at 11:30 Midodrine (Proamatine) 5 mg TID@,13,17 GTB Last administered on 11/08/18 12:53; Admin Dose 5 MG; Start 11/03/18 at 09:00; Status Hold Guaifenesin (Robitussin Liquid Cup) 100 mg Q4H PRN PO COUGH Last administered on 11/13/18 17:58; Admin Dose 100 MG; Start 11/03/18 at 12:00 Calcitriol (Rocaltrol) 1.5 mcg BID PO Last administered on 11/17/18 09:27; Admin Dose 1.5 MCG; Start 11/07/18 at 21:00 Lorazepam (Ativan) 1 mg Q4 GTB Last administered on 11/17/18 09:26; Admin Dose 1 MG; Start 11/09/18 at 14:00 Carvedilol (Coreg) 6.25 mg BID PO Last administered on 11/17/18 09:26; Admin Dose 6.25 MG; Start 11/09/18 at 21:00 Benazepril HCl (Lotensin) 10 mg DAILY PO Last administered on 11/17/18 09:27; Admin Dose 10 MG; Start 11/10/18 at 09:00 Digoxin (Digoxin) 0.25 mg DAILY@13 PO Last administered on 11/16/18 12:04; Admin Dose 0.25 MG; Start 11/11/18 at 13:00; Status Hold Furosemide (Lasix) 20 mg DAILY IV Last administered on 11/15/18 08:58; Admin Dose 20 MG; Start 11/10/18 at 12:30; Status Hold Hydromorphone HCl (Dilaudid) 3 mg Q4H PRN PO MODERATE PAIN LEVEL 7-10 Last administered on 11/17/18 01:47; Admin Dose 3 MG; Start 11/10/18 at 22:00 Cefepime HCl 50 ml @ 100 mls/hr Q12 IVPB Last administered on 11/17/18 09:24; Admin Dose 100 MLS/HR; Start 11/10/18 at 23:30 Fentanyl 100 ml @ 2.5 mls/hr TITRATE IV Last administered on 11/16/18 22:22; Admin Dose 5 MLS/HR; Start 11/14/18 at 09:00 Ascorbic Acid (Vitamin C) 250 mg DAILY GTB Last administered on 11/17/18 09:26; Admin Dose 250 MG; Start 11/15/18 at 09:00; Stop 11/29/18 at 09:00 Zinc Sulfate (Zinc Sulfate) 220 mg DAILY GTB Last administered on 11/17/18 09:27; Admin Dose 220 MG; Start 11/15/18 at 09:00; Stop 11/29/18 at 09:00 Hydrocortisone (Cortef) 15 mg HS PEG Last administered on 11/16/18 20:16; Admin Dose 15 MG; Start 11/15/18 at 21:00 Hydrocortisone (Cortef) 15 mg QAM PEG Last administered on 11/17/18 09:24; Admin Dose 15 MG; Start 11/16/18 at 09:00 Hydrocortisone (Cortef) 15 mg AC DINNER PEG Last administered on 11/16/18 17:09; Admin Dose 15 MG; Start 11/15/18 at 17:05 Acetazolamide (Diamox) 500 mg DAILY IV Last administered on 11/17/18 09:24; Admin Dose 500 MG; Start 11/16/18 at 09:30 Daptomycin 185 mg/ Sodium Chloride 100 ml @ 200 mls/hr Q24H IVPB Last administered on 11/16/18 17:58; Admin Dose 200 MLS/HR; Start 11/16/18 at 16:00; Stop 11/21/18 at 15:59 Enoxaparin Sodium (Lovenox) 30 mg DAILY SC Last administered on 4/4/19at 10:31; Admin Dose 30 MG; Start 11/16/18 at 16:00 Insulin Aspart (Novolog Insulin Pen) NOVOLOG *CUSTOM* ALGORITHM Q6 SC Last administered on 11/17/18at 13:11; Admin Dose 1 UNIT; Start 11/17/18 at 12:00 Linagliptin (Tradjenta) 5 mg DAILY PO ; Start 11/18/18 at 09:00 CAROLYN LANGLEY Nov 17, 2018 13:39
[2018-11-17] MEDS: SOD CHLORIDE 0.9% IVPB SCH (16:14)
[2018-11-17] MEDS: DAPTOMYCIN IVPB SCH (16:14)
[2018-11-17] MEDS: FENTAnyl (DRIP) 1000 mcg/100mL 100 ML IV SCH (23:59)
[2018-11-18] VITALS (35 sets, daily range): BP systolic 72–156; BP diastolic 39–92; PULSE 107–136; RESP 20–36
[2018-11-18] MEDS: LORAZEPAM 1 MG TAB GTB SCH ×6 (00:30→21:00)
[2018-11-18] MEDS: IPRATROPIUM (HFA) 12.9 GM INHALER INH SCH ×4 (01:22→19:52)
[2018-11-18] MEDS: ALBUTEROL HFA 8 GM INHALER INH SCH ×4 (01:23→19:52)
[2018-11-18] MEDS: INSULIN ASPART [NOVOLOG] 3 ML PEN SC SCH ×4 (05:48→23:44)
[2018-11-18] MEDS: GABAPENTIN (50 MG/ML PO SYG) GTB SCH ×3 (05:49→21:17)
[2018-11-18] MEDS: LANSOPRAZOLE 30 MG CAP GTB SCH ×2 (05:49→18:25)
--- NOTE | 2018-11-18 08:17 | PN ---
DATE: 11/18/2018 SUBJECTIVE: The patient is alert. No events overnight. No fevers, chills, nausea, vomiting. Urina ry output has been adequate. The patient still, however, remains critically ill on full ventilatory support with FiO2 level of 85%. OBJECTIVE: VITAL SIGNS: Blood pressure is 112/80, respirations 22, pulse 121, temperature 98.5. HEENT: Head is normocephalic. NECK: Supple. HEART: Regular rate. LUNGS: Show diminished breath sounds at the base. ABDOMEN: Soft, nontender to palpation without rebound or guarding. EXTREMITIES: Negative for clubbing, cyanosis, no edema. DERMATOLOGIC: No rashes. MUSCULOSKELETAL: No joint effusion. NEUROLOGIC: No change in exam. MEDICATIONS: The patient's medications have been reviewed. LABORATORY DATA: Shows sodium 142, potassium 4.4, BUN 33, creatinine 4.9, bicarb 39. White count 17 .6, hemoglobin 7.4, platelet count is 476. ASSESSMENT AND PLAN: 1. Nonoliguric acute kidney injury with previously normal baseline creatinine. Etiology of acute ki dney injury is secondary to hemodynamics. Renal function is improved. Continue to monitor. 2. Mixed acid base disorder. The patient has metabolic alkalosis with compensatory respiratory acid osis. The patient was started on Diamox and received 2 doses. Plan for an additional dose today. B icarbonate levels have been improving. Continue to monitor. Monitor electrolytes closely. 3. Volume overload, improving. Continue current diuretic regimen. 4. Ventilator dependent respiratory failure. Vent settings and ABG was reviewed. Continue to monit or. 5. Adrenal insufficiency. Continue Cortef. 6. Dysphagia, status post PEG-tube feeding. 7. Hypertension. Continue current blood pressure regimen. 8. Hypomagnesemia. Continue to monitor and replete. 9. Mineral bone disorder. Monitor calcium and phosphorus levels. Continue vitamin D analogs. 10. Status post shock. 11. Anxiety disorder. Dictated By: UNA ROY DO NR/NTS Conf#: [id number] DID#: [id number] CC: NOLA VIDAL MD; CAMELIA VALENTINE MD;*EndCC*
--- NOTE | 2018-11-18 08:39 | CONS ---
Assessment/Plan Assessment/Plan Assessment/Plan (Daily) Ventilator setting; AC of 20, pressure control, PEEP of 8, 25% FiO2. Patient is on fentanyl drip 35 mics per hour. Assessment and recommendations; 1. Patient with history of ARDS and VDR F admitted for worsening hypoxemia without any interval improvement with persistent severe hypoxemic and hyper capnic respiratory failure. Maintained on pressure control mode. 2. Other comorbidities include history of incomplete quadriplegia, HSV esophagitis, anemia, hypertension, anxiety and depression. Continue current supportive care. Patient's daughter is getting in his room today, patient likely will be switched to comfort care measures after that. Overall prognosis remains very poor. Consultation Date/Type/Reason Admit Date/Time Oct 09, 2018 at 12:16 Initial Consult Date 10/12/18 Type of Consult Pulmonary/critical care Patient's condition is stable. Remains completely awake and alert. Has remained hemodynamically stable. Patient also has been switched over to volume control ventilation from pressure-controlled mode. General exam; middle-aged male, on ventilator via tracheostomy, awake and alert. Watching television. Currently in no distress. Area Requesting Provider: NOLA VIDAL MD Date/Time of Note DATE: 11/18/18 TIME: 08:37 24 HR Interval Summary Free Text/Dictation Patient's condition is critical but stable. Remains awake and alert. Has remained hemodynamically stable. General exam; middle-aged male, awake alert. On ventilator via tracheostomy. Currently in no distress. Exam/Review of Systems Exam Vitals Vital Signs Date Temp Pulse Resp B/P (MAP) Pulse Ox O2 O2 Flow FiO2 Time Delivery Rate 11/18/18 121 33 112/80 Mechanical 06:00 (91) Ventilator 11/18/18 96 85 05:50 11/18/18 98.5 04:00 Intake and Output 11/17/18 11/17/18 11/18/18 1515:00 23:00 07:00 IntakeIntake Total 616.0 ml 796.5 ml 389.5 ml OutputOutput Total 1105 ml 270 ml BalanceBalance 616.0 ml -308.5 ml 119.5 ml Exam H EENT exam; supple neck, no JVD. No lymphadenopathy. Midline trachea. No thyromegaly. Patient is edentulous. Tracheostomy in place. Insertion site is clean. Chest exam; bilateral crackles. S1-S2 audible, no murmurs. Regular rhythm. Abdomen exam; soft, G-tube in place. No organomegaly. Bowel sounds audible. Extremity exam; no peripheral edema clubbing. ACCOUNT REVIEW SPECIALIST exam; patient is awake alert exhibiting stable incomplete quadriplegia. Able to move both upper extremities to some extent. Results Result Diagram: 11/18/18 0500 11/18/18 0500 Results 24hrs Laboratory Tests Test 11/17/18 12:59 11/17/18 17:46 11/17/18 23:43 11/18/18 05:00 Bedside Glucose 152 152 166 White Blood Count 17.6 #H Red Blood Count 2.69 L Hemoglobin 7.4 L Hematocrit 25.7 L Mean Corpuscular Volume 95.5 Mean Corpuscular 27.5 L Hemoglobin Mean Corpuscular 28.8 L Hemoglobin Concent Red Cell Distribution 16.5 H Width Platelet Count 476 H Mean Platelet Volume 11.1 H Immature Granulocytes % 3.600 H Neutrophils % 65.1 Lymphocytes % 7.5 L Monocytes % 10.5 Eosinophils % 12.5 H Basophils % 0.8 Nucleated Red Blood 0.0 Cells % Immature Granulocytes # 0.630 H Neutrophils # 11.5 H Lymphocytes # 1.3 Monocytes # 1.8 H Eosinophils # 2.2 H Basophils # 0.1 Nucleated Red Blood 0.0 Cells # Sodium Level 142 Potassium Level 4.4 Chloride Level 99 Carbon Dioxide Level 39 H Anion Gap 4 L Blood Urea Nitrogen 33 H Creatinine 0.42 L Est Glomerular Filtrat > 60 Rate mL/min Glucose Level 109 Calcium Level 8.4 Phosphorus Level 3.0 Magnesium Level 2.1 Creatine Kinase < 20 L Test 11/18/18 05:48 Bedside Glucose 115 Medications Medication Current Medications Acetaminophen (Tylenol Liquid) 650 mg Q4H PRN GTB MILD PAIN(1-3)OR ELEVATED TEMP Last administered on 11/16/18at 12:03; Admin Dose 650 MG; Start 10/09/18 at 14:00 Al Hydrox/Mg Hydrox/Simethicone (Mag-Al Plus) 15 ml Q6H PRN PO GASTROINTESTINAL UPSET Last administered on 10/17/18at 13:18; Admin Dose 15 ML; Start 10/09/18 at 14:00 Eye Lubricant (Artificial Tears Oph) 1 drop Q6H PRN BOTH EYES DRY EYES Last administered on 11/03/18 09:33; Admin Dose 1 DROP; Start 10/09/18 at 14:00 Bisacodyl (Dulcolax Supp) 10 mg DAILY PRN MI CONSTIPATION; Start 10/09/18 at 14:00 Clonidine (Catapres) 0.1 mg DAILY PRN GTB ELEVATED BLOOD PRESSURE; Start 10/09/18 at 14:00 Diltiazem HCl (Cardizem Iv) 5 mg Q4 PRN IV ELEVATED HEART RATE Last administered on 11/06/18 18:47; Admin Dose 5 MG; Start 10/09/18 at 14:00 Diphenhydramine HCl (Benadryl Liquid Cup) 25 mg Q6 PRN GTB ITCHING Last administered on 10/22/18 20:25; Admin Dose 25 MG; Start 10/09/18 at 14:00 Duloxetine HCl (Cymbalta) 30 mg DAILY PO Last administered on 11/17/18 09:27; Admin Dose 30 MG; Start 10/10/18 at 09:00 Gabapentin (Neurontin Liquid) 400 mg Q8 GTB Last administered on 11/18/18 05:49; Admin Dose 400 MG; Start 10/09/18 at 15:30 Hydralazine HCl (Apresoline) 10 mg Q4H PRN IV ELEVATED BLOOD PRESSURE; Start 10/09/18 at 14:00 Hydroxychloroquine Sulfate (Plaquenil) 200 mg BID PO Last administered on 11/17/18 20:25; Admin Dose 200 MG; Start 10/09/18 at 21:00 Lactobacillus Acidophilus (Florajen3 Capsule) 1 each BID GTB Last administered on 11/17/18 20:24; Admin Dose 1 EACH; Start 10/09/18 at 21:00 Lansoprazole (Prevacid) 30 mg BID@,18 GTB Last administered on 11/18/18 05:49; Admin Dose 30 MG; Start 10/09/18 at 18:00 Levetiracetam (Keppra Liquid) 500 mg BID GTB Last administered on 11/17/18 20:26; Admin Dose 500 MG; Start 10/09/18 at 21:00 Magnesium Oxide (Mag-Ox 400) 400 mg BID GTB Last administered on 4/4/19at 2 0:25; Admin Dose 400 MG; Start 10/09/18 at 21:00 Metoclopramide HCl (Reglan) 10 mg TID IV Last administered on 11/17/18at 20:25; Admin Dose 10 MG; Start 10/09/18 at 21:00 Miconazole Nitrate (Miconazole 2% Cr) 1 applic BID TOP Last administered on 11/17/18at 20:26; Admin Dose 1 APPLIC; Start 10/09/18 at 21:00 Miconazole Nitrate (Miconazole 2% Cr) 1 applic Q12 PRN TOP rash; Start 10/09/18 at 14:00 Ondansetron HCl (Zofran Inj) 4 mg Q4H PRN IV NAUSEA AND/OR VOMITING Last administered on 10/19/18at 16:37; Admin Dose 4 MG; Start 10/09/18 at 14:00 Polyethylene Glycol (Miralax) 17 gm DAILY PRN GTB CONSTIPATION; Start 10/09/18 at 14:00 Senna (Senokot) 2 tab Q8 PRN PO CONSTIPATION; Start 10/09/18 at 14:00 Trimethoprim/ Sulfamethoxazole (Bactrim Susp) 40 ml DAILY GTB Last administered on 11/17/18at 09:24; Admin Dose 40 ML; Start 10/10/18 at 09:00 Zolpidem Tartrate (Ambien) 5 mg HS PRN PO INSOMNIA Last administered on 11/03/18at 01:16; Admin Dose 5 MG; Start 10/09/18 at 14:00 Miscellaneous Information 1 ea NOTE XX ; Start 10/09/18 at 15:00 Glucose (Glutose) 15 gm Q15M PRN PO DECREASED GLUCOSE; Start 10/09/18 at 15:00 Glucose (Glutose) 22.5 gm Q15M PRN PO DECREASED GLUCOSE; Start 10/09/18 at 1 5:00 Dextrose (D50w Syringe) 25 ml Q15M PRN IV DECREASED GLUCOSE; Start 10/09/18 at 15:00 Dextrose (D50w Syringe) 50 ml Q15M PRN IV DECREASED GLUCOSE; Start 10/09/18 at 15:00 Glucagon (Glucagen) 1 mg Q15M PRN IM DECREASED GLUCOSE; Start 10/09/18 at 15:00 Glucose (Glutose) 15 gm Q15M PRN BUCCAL DECREASED GLUCOSE; Start 10/09/18 at 15:00 Albuterol (Ventolin Hfa) 4 puff Q6H RESP THERAPY INH Last administered on 11/18/18 01:23; Admin Dose 4 PUFF; Start 10/10/18 at 02:00 Ipratropium Wilson (Atrovent Hfa) 4 puff Q6H RESP THERAPY INH Last administered on 11/18/18 01:22; Admin Dose 4 PUFF; Start 10/10/18 at 02:00 Quetiapine Fumarate (Seroquel) 100 mg BID GTB Last administered on 11/17/18 2 0:25; Admin Dose 100 MG; Start 10/21/18 at 21:00 Calcium Carbonate (Ca Carbonate) 1,250 mg QID GTB Last administered on 11/17/18 20:26; Admin Dose 1,250 MG; Start 10/24/18 at 13:00 Metoprolol Tartrate (Lopressor) 5 mg Q4H PRN IV HR>110 Hold SBP<100 Last administered on 11/11/18 18:31; Admin Dose 5 MG; Start 10/28/18 at 12:30 Phenylephrine HCl 40 mg/Dextrose 250 ml @ 37.5 mls/hr TITRATE IV Last administered on 11/02/18 09:05; Admin Dose 11.25 MLS/HR; Start 11/01/18 at 13:30 IV Flush (NS 10 ml) 10 ml PRN PRN IV IV PROTOCOL; Start 11/01/18 at 16:30 Norepinephrine 32 mg/Dextrose 250 ml @ 0.47 mls/hr TITRATE IV Last administered on 11/02/18 12:15; Admin Dose 0.47 MLS/HR; Start 11/02/18 at 11:30 Midodrine (Proamatine) 5 mg TID@09,13,17 GTB Last administered on 11/08/18 12:53; Admin Dose 5 MG; Start 11/03/18 at 09:00; Status Hold Guaifenesin (Robitussin Liquid Cup) 100 mg Q4H PRN PO COUGH Last administered on 11/13/18 17:58; Admin Dose 100 MG; Start 11/03/18 at 12:00 Calcitriol (Rocaltrol) 1.5 mcg BID PO Last administered on 11/17/18 20:25; Admin Dose 1.5 MCG; Start 11/07/18 at 21:00 Lorazepam (Ativan) 1 mg Q4 GTB Last administered on 11/18/18 04:18; Admin Dose 1 MG; Start 11/09/18 at 14:00 Carvedilol (Coreg) 6.25 mg BID PO Last administered on 11/17/18 20:25; Admin Dose 6.25 MG; Start 11/09/18 at 21:00 Benazepril HCl (Lotensin) 10 mg DAILY PO Last administered on 11/17/18 09:27; Admin Dose 10 MG; Start 11/10/18 at 09:00 Digoxin (Digoxin) 0.25 mg DAILY@13 PO Last administered on 11/16/18 12:04; Admin Dose 0.25 MG; Start 11/11/18 at 13:00; Status Hold Furosemide (Lasix) 20 mg DAILY IV Last administered on 11/15/18 08:58; Admin Dose 20 MG; Start 11/10/18 at 12:30; Status Hold Hydromorphone HCl (Dilaudid) 3 mg Q4H PRN PO MODERATE PAIN LEVEL 7-10 Last administered on 11/17/18 01:47; Admin Dose 3 MG; Start 11/10/18 at 22:00 Cefepime HCl 50 ml @ 100 mls/hr Q12 IVPB Last administered on 11/17/18 20:27; Admin Dose 100 MLS/HR; Start 11/10/18 at 23:30 Fentanyl 100 ml @ 2.5 mls/hr TITRATE IV Last administered on 11/17/18 23:59; Admin Dose 3.5 MLS/HR; Start 11/14/18 at 09:00 Ascorbic Acid (Vitamin C) 250 mg DAILY GTB Last administered on 11/17/18 09:26; Admin Dose 250 MG; Start 11/15/18 at 09:00; Stop 11/29/18 at 09:00 Zinc Sulfate (Zinc Sulfate) 220 mg DAILY GTB Last administered on 11/17/18 09:27; Admin Dose 220 MG; Start 11/15/18 at 09:00; Stop 11/29/18 at 09:00 Hydrocortisone (Cortef) 15 mg HS PEG Last administered on 11/17/18 20:25; Admin Dose 15 MG; Start 11/15/18 at 21:00 Hydrocortisone (Cortef) 15 mg QAM PEG Last administered on 11/17/18 09:24; Admin Dose 15 MG; Start 11/16/18 at 09:00 Hydrocortisone (Cortef) 15 mg AC DINNER PEG Last administered on 11/17/18 17:55; Admin Dose 15 MG; Start 11/15/18 at 17:05 Acetazolamide (Diamox) 500 mg DAILY IV Last administered on 11/17/18 09:24; Admin Dose 500 MG; Start 11/16/18 at 09:30 Daptomycin 185 mg/ Sodium Chloride 100 ml @ 200 mls/hr Q24H IVPB Last administered on 11/17/18 16:14; Admin Dose 200 MLS/HR; Start 11/16/18 at 16:00; Stop 11/21/18 at 15:59 Enoxaparin Sodium (Lovenox) 30 mg DAILY SC Last administered on 11/17/18 10:31; Admin Dose 30 MG; Start 11/16/18 at 16:00 Insulin Aspart (Novolog Insulin Pen) NOVOLOG *CUSTOM* ALGORITHM Q6 SC Last administered on 11/17/18 23:46; Admin Dose 1 UNIT; Start 11/17/18 at 12:00 Linagliptin (Tradjenta) 5 mg DAILY PO ; Start 11/18/18 at 09:00 PILAR BERGER Nov 18, 2018 08:39
[2018-11-18] MEDS: METOCLOPRAMIDE 10 MG INJ IV SCH ×3 (09:00→21:17)
[2018-11-18] MEDS: BENAZEPRIL 10 MG TAB PO SCH (10:41)
[2018-11-18] MEDS: CA CARBONATE (250 MG/ML) 5ML CUP GTB SCH ×4 (10:42→21:17)
[2018-11-18] MEDS: ASCORBIC ACID 250 MG TAB GTB SCH (10:43)
[2018-11-18] MEDS: CALCITRIOL 0.5 MCG CAPSULE PO SCH ×2 (10:43→21:17)
[2018-11-18] MEDS: DULOXETINE 30 MG CAP DR PO SCH (10:43)
[2018-11-18] MEDS: LEVETIRACETAM (100 MG/ML) 5ML CUP GTB SCH ×2 (10:44→21:17)
[2018-11-18] MEDS: HYDROCORTISONE 5 MG TAB PEG SCH ×3 (10:44→21:17)
[2018-11-18] MEDS: ZINC SULFATE 220 MG CAP GTB SCH (10:44)
[2018-11-18] MEDS: QUETIAPINE 100 MG TAB GTB SCH ×2 (10:45→21:17)
[2018-11-18] MEDS: HYDROXYCHLOROQUINE 200 MG TAB PO SCH ×2 (10:45→21:18)
[2018-11-18] MEDS: ACETAZOLAMIDE 500 MG INJ IV SCH (10:46)
[2018-11-18] MEDS: LINAGLIPTIN 5 MG TABLET PO SCH (10:46)
[2018-11-18] MEDS: MAGNESIUM OXIDE 400 MG TAB GTB SCH ×2 (10:46→21:18)
[2018-11-18] MEDS: CEFEPIME 1GM/50 ML (PMX) 50 ML IVPB SCH ×2 (10:47→21:17)
[2018-11-18] MEDS: TRIMETHOPRIM/SULFAMETHOX (PO SYG) GTB SCH (10:47)
[2018-11-18] MEDS: MICONAZOLE 2% 30 GM CR TOP SCH ×2 (10:48→21:18)
[2018-11-18] MEDS: BALSAM PERU/CASTOR OIL 60 GM TUBE TOP SCH ×2 (10:48→21:18)
[2018-11-18] MEDS: L ACIDOPHIL/B LACTIS/B LONGUM CAPSULE GTB SCH ×2 (10:50→21:17)
--- NOTE | 2018-11-18 10:52 | PN ---
Date/Time of Note Date/Time of Note DATE: 11/18/18 TIME: 10:52 Assessment/Plan VTE Pro[place]axis [place] [facility] [place]: 8 [place] [facility] [place] SCD contraindicated: other Pharmacological prophylaxis: other Pharm contraindication: other Lines/Catheters IV Catheter Type (from [facility]): PICC Line Central line still needed: Yes Urinary Cath still in place: No Assessment/Plan Assessment/Plan DO NOT RESUSCITATE CODE STATUS - Acute on chronic hypoxemic respiratory failure with underlying ARDS, continue ventilatory support. - Dr. Villa is following in pulmonology consultation. - Recurrent sepsis secondary to pneumonia and UTI. Continue antibiotics per ID. - Dr. Canales is following in infection disease consultation. - Acute kidney injury, resolved, continue to monitor BUN and creatinine. - Dr. Hobson is following in nephrology consultation. - Tachycardia, Dr. Joshi is following in cardiology consultation. - Cardiomyopathy with EF 35-40% - Rheumatoid arthritis with steroid dependence. - Dysphagia. Continue GT feeding. - Anemia of chronic disease. - Hypoparathyroidism - Hypertension. - Functional quadriplegia - Hx of severe cervical spinal cord stenosis with cord compression from C3-C5, s/p laminectomy. - History of fibromyalgia rheumatica - Hx of VAT on 08/11/2018 - Poor prognosis - Dr. Zurita is following in palliative care consultation. Critical care time spent 30 minutes. Further recommendations based on clinical course. Plan of care discussed with Dr. Rosales Result Diagram: 11/18/18 0500 11/18/18 0500 Results 24hrs Laboratory Tests Test 11/17/18 12:59 11/17/18 17:46 11/17/18 23:43 11/18/18 05:00 Bedside Glucose 152 152 166 White Blood Count 17.6 #H Red Blood Count 2.69 L Hemoglobin 7.4 L Hematocrit 25.7 L Mean Corpuscular Volume 95.5 Mean Corpuscular 27.5 L Hemoglobin Mean Corpuscular 28.8 L Hemoglobin Concent Red Cell Distribution 16.5 H Width Platelet Count 476 H Mean Platelet Volume 11.1 H Immature Granulocytes % 3.600 H Neutrophils % 65.1 Lymphocytes % 7.5 L Monocytes % 10.5 Eosinophils % 12.5 H Basophils % 0.8 Nucleated Red Blood 0.0 Cells % Immature Granulocytes # 0.630 H Neutrophils # 11.5 H Lymphocytes # 1.3 Monocytes # 1.8 H Eosinophils # 2.2 H Basophils # 0.1 Nucleated Red Blood 0.0 Cells # Sodium Level 142 Potassium Level 4.4 Chloride Level 99 Carbon Dioxide Level 39 H Anion Gap 4 L Blood Urea Nitrogen 33 H Creatinine 0.42 L Est Glomerular Filtrat > 60 Rate mL/min Glucose Level 109 Calcium Level 8.4 Phosphorus Level 3.0 Magnesium Level 2.1 Creatine Kinase < 20 L Test 11/18/18 05:48 Bedside Glucose 115 Subjective 24 Hr Interval Summary Free Text/Dictation nad seems comfortable no new acute issues reported dw staff Subjective hx not possible: pt non-verbal Constitutional: requiring IVF, requiring O2 Exam/Review of Systems Exam Vitals Vital Signs Date Temp Pulse Resp B/P (MAP) Pulse Ox O2 O2 Flow FiO2 Time Delivery Rate 11/18/18 124 29 94 85 07:40 11/18/18 112/80 Mechanical 06:00 (91) Ventilator 11/18/18 98.5 04:00 Intake and Output 11/17/18 11/17/18 11/18/18 1515:00 23:00 07:00 IntakeIntake Total 616.0 ml 796.5 ml 389.5 ml OutputOutput Total 1105 ml 270 ml BalanceBalance 616.0 ml -308.5 ml 119.5 ml Constitutional: alert, well developed, non-verbal, frail Psych: nl mood/affect Eyes: nl lids ENMT: nl external ears & nose Respiratory: diminished breath sounds Cardiovascular: nl pulses, other (S1S2) Gastrointestinal: soft, non-tender, other Musculoskeletal: muscle weakness, range of motion Extremities: normal pulses Neurological: other (Alert/open eyes at tmes) Lymph: nontender Results Results 24hrs Laboratory Tests Test 11/17/18 12:59 11/17/18 17:46 11/17/18 23:43 11/18/18 05:00 Bedside Glucose 152 152 166 White Blood Count 17.6 #H Red Blood Count 2.69 L Hemoglobin 7.4 L Hematocrit 25.7 L Mean Corpuscular Volume 95.5 Mean Corpuscular 27.5 L Hemoglobin Mean Corpuscular 28.8 L Hemoglobin Concent Red Cell Distribution 16.5 H Width Platelet Count 476 H Mean Platelet Volume 11.1 H Immature Granulocytes % 3.600 H Neutrophils % 65.1 Lymphocytes % 7.5 L Monocytes % 10.5 Eosinophils % 12.5 H Basophils % 0.8 Nucleated Red Blood 0.0 Cells % Immature Granulocytes # 0.630 H Neutrophils # 11.5 H Lymphocytes # 1.3 Monocytes # 1.8 H Eosinophils # 2.2 H Basophils # 0.1 Nucleated Red Blood 0.0 Cells # Sodium Level 142 Potassium Level 4.4 Chloride Level 99 Carbon Dioxide Level 39 H Anion Gap 4 L Blood Urea Nitrogen 33 H Creatinine 0.42 L Est Glomerular Filtrat > 60 Rate mL/min Glucose Level 109 Calcium Level 8.4 Phosphorus Level 3.0 Magnesium Level 2.1 Creatine Kinase < 20 L Test 11/18/18 05:48 Bedside Glucose 115 Medications Medication Current Medications Acetaminophen (Tylenol Liquid) 650 mg Q4H PRN GTB MILD PAIN(1-3)OR ELEVATED TEMP Last administered on 11/16/18 12:03; Admin Dose 650 MG; Start 10/09/18 at 14:00 Al Hydrox/Mg Hydrox/Simethicone (Mag-Al Plus) 15 ml Q6H PRN PO GASTROINTESTINAL UPSET Last administered on 10/17/18 13:18; Admin Dose 15 ML; Start 10/09/18 at 14:00 Eye Lubricant (Artificial Tears Oph) 1 drop Q6H PRN BOTH EYES DRY EYES Last administered on 11/03/18 09:33; Admin Dose 1 DROP; Start 10/09/18 at 14:00 Bisacodyl (Dulcolax Supp) 10 mg DAILY PRN [place] CONSTIPATION; Start 10/09/18 at 14:00 Clonidine (Catapres) 0.1 mg DAILY PRN GTB ELEVATED BLOOD PRESSURE; Start 10/09/18 at 14:00 Diltiazem HCl (Cardizem Iv) 5 mg Q4 PRN IV ELEVATED HEART RATE Last administered on 11/06/18 18:47; Admin Dose 5 MG; Start 10/09/18 at 14:00 Diphenhydramine HCl (Benadryl Liquid Cup) 25 mg Q6 PRN GTB ITCHING Last administered on 10/22/18 20:25; Admin Dose 25 MG; Start 10/09/18 at 14:00 Duloxetine HCl (Cymbalta) 30 mg DAILY PO Last administered on 11/17/18 09:27; Admin Dose 30 MG; Start 10/10/18 at 09:00 Gabapentin (Neurontin Liquid) 400 mg Q8 GTB Last administered on 11/18/18 05:49; Admin Dose 400 MG; Start 10/09/18 at 15:30 Hydralazine HCl (Apresoline) 10 mg Q4H PRN IV ELEVATED BLOOD PRESSURE; Start 10/09/18 at 14:00 Hydroxychloroquine Sulfate (Plaquenil) 200 mg BID PO Last administered on 11/17/18 20:25; Admin Dose 200 MG; Start 10/09/18 at 21:00 Lactobacillus Acidophilus (Florajen3 Capsule) 1 each BID GTB Last administered on 11/17/18 20:24; Admin Dose 1 EACH; Start 10/09/18 at 21:00 Lansoprazole (Prevacid) 30 mg BID@,18 GTB Last administered on 11/18/18 05:49; Admin Dose 30 MG; Start 10/09/18 at 18:00 Levetiracetam (Keppra Liquid) 500 mg BID GTB Last administered on 11/17/18 20:26; Admin Dose 500 MG; Start 10/09/18 at 21:00 Magnesium Oxide (Mag-Ox 400) 400 mg BID GTB Last administered on 11/17/18 20:25; Admin Dose 400 MG; Start 10/09/18 at 21:00 Metoclopramide HCl (Reglan) 10 mg TID IV Last administered on 11/17/18 20:25; Admin Dose 10 MG; Start 10/09/18 at 21:00 Miconazole Nitrate (Miconazole 2% Cr) 1 applic BID TOP Last administered on 11/17/18 20:26; Admin Dose 1 APPLIC; Start 10/09/18 at 21:00 Miconazole Nitrate (Miconazole 2% Cr) 1 applic Q12 PRN TOP rash; Start 10/09/18 at 14:00 Ondansetron HCl (Zofran Inj) 4 mg Q4H PRN IV NAUSEA AND/OR VOMITING Last administered on 10/19/18 16:37; Admin Dose 4 MG; Start 10/09/18 at 14:00 Polyethylene Glycol (Miralax) 17 gm DAILY PRN GTB CONSTIPATION; Start 10/09/18 at 14:00 Senna (Senokot) 2 tab Q8 PRN PO CONSTIPATION; Start 10/09/18 at 14:00 Trimethoprim/ Sulfamethoxazole (Bactrim Susp) 40 ml DAILY GTB Last administered on 11/17/18 09:24; Admin Dose 40 ML; Start 10/10/18 at 09:00 Zolpidem Tartrate (Ambien) 5 mg HS PRN PO INSOMNIA Last administered on 11/03/18at 01:16; Admin Dose 5 MG; Start 10/09/18 at 14:00 Miscellaneous Information 1 ea NOTE XX ; Start 10/09/18 at 15:00 Glucose (Glutose) 15 gm Q15M PRN PO DECREASED GLUCOSE; Start 10/09/18 at 15:00 Glucose (Glutose) 22.5 gm Q15M PRN PO DECREASED GLUCOSE; Start 10/09/18 at 15:00 Dextrose (D50w Syringe) 25 ml Q15M PRN IV DECREASED GLUCOSE; Start 10/09/18 at 15:00 Dextrose (D50w Syringe) 50 ml Q15M PRN IV DECREASED GLUCOSE; Start 10/09/18 at 15:00 Glucagon (Glucagen) 1 mg Q15M PRN IM DECREASED GLUCOSE; Start 10/09/18 at 15:00 Glucose (Glutose) 15 gm Q15M PRN BUCCAL DECREASED GLUCOSE; Start 10/09/18 at 15:00 Albuterol (Ventolin Hfa) 4 puff Q6H RESP THERAPY INH Last administered on 11/18/18 01:23; Admin Dose 4 PUFF; Start 10/10/18 at 02:00 Ipratropium [place] (Atrovent Hfa) 4 puff Q6H RESP THERAPY INH Last administered on 11/18/18 01:22; Admin Dose 4 PUFF; Start 10/10/18 at 02:00 Quetiapine Fumarate (Seroquel) 100 mg BID GTB Last administered on 11/17/18 20:25; Admin Dose 100 MG; Start 10/21/18 at 21:00 Calcium Carbonate (Ca Carbonate) 1,250 mg QID GTB Last administered on 11/17/18 20:26; Admin Dose 1,250 MG; Start 10/24/18 at 13:00 Metoprolol Tartrate (Lopressor) 5 mg Q4H PRN IV HR>110 Hold SBP<100 Last administered on 11/11/18 18:31; Admin Dose 5 MG; Start 10/28/18 at 12:30 Phenylephrine HCl 40 mg/Dextrose 250 ml @ 37.5 mls/hr TITRATE IV Last administered on 11/02/18 09:05; Admin Dose 11.25 MLS/HR; Start 11/01/18 at 13:30 IV Flush (NS 10 ml) 10 ml PRN PRN IV IV PROTOCOL; Start 11/01/18 at 16:30 Norepinephrine 32 mg/Dextrose 250 ml @ 0.47 mls/hr TITRATE IV Last adm inistered on 11/02/18 12:15; Admin Dose 0.47 MLS/HR; Start 11/02/18 at 11:30 Midodrine (Proamatine) 5 mg TID@,,17 GTB Last administered on 11/08/18 12:53; Admin Dose 5 MG; Start 11/03/18 at 09:00; Status Hold Guaifenesin (Robitussin Liquid Cup) 100 mg Q4H PRN PO COUGH Last administered on 11/13/18 17:58; Admin Dose 100 MG; Start 11/03/18 at 12:00 Calcitriol (Rocaltrol) 1.5 mcg BID PO Last administered on 11/17/18 20:25; Admin Dose 1.5 MCG; Start 11/07/18 at 21:00 Lorazepam (Ativan) 1 mg Q4 GTB Last administered on 11/18/18 04:18; Admin Dose 1 MG; Start 11/09/18 at 14:00 Carvedilol (Coreg) 6.25 mg BID PO Last administered on 11/17/18 20:25; Admin Dose 6.25 MG; Start 11/09/18 at 21:00 Benazepril HCl (Lotensin) 10 mg DAILY PO Last administered on 11/17/18 09:27; Admin Dose 10 MG; Start 11/10/18 at 09:00 Digoxin (Digoxin) 0.25 mg DAILY@13 PO Last administered on 11/16/18 12:04; Admin Dose 0.25 MG; Start 11/11/18 at 13:00; Status Hold Furosemide (Lasix) 20 mg DAILY IV Last administered on 11/15/18 08:58; Admin Dose 20 MG; Start 11/10/18 at 12:30; Status Hold Hydromorphone HCl (Dilaudid) 3 mg Q4H PRN PO MODERATE PAIN LEVEL 7-10 Last administered on 11/17/18 01:47; Admin Dose 3 MG; Start 11/10/18 at 22:00 Cefepime HCl 50 ml @ 100 mls/hr Q12 IVPB Last administered on 11/17/18 20:27; Admin Dose 100 MLS/HR; Start 11/10/18 at 23:30 Fentanyl 100 ml @ 2.5 mls/hr TITRATE IV Last administered on 11/17/18 23:59; Admin Dose 3.5 MLS/HR; Start 11/14/18 at 09:00 Ascorbic Acid (Vitamin C) 250 mg DAILY GTB Last administered on 11/17/18 09:26; Admin Dose 250 MG; Start 11/15/18 at 09:00; Stop 11/29/18 at 09:00 Zinc Sulfate (Zinc Sulfate) 220 mg DAILY GTB Last administered on 11/17/18 09:27; Admin Dose 220 MG; Start 11/15/18 at 09:00; Stop 11/29/18 at 09:00 Hydrocortisone (Cortef) 15 mg HS PEG Last administered on 11/17/18 20:25; Admin Dose 15 MG; Start 11/15/18 at 21:00 Hydrocortisone (Cortef) 15 mg QAM PEG Last administered on 11/17/18 09:24; Admin Dose 15 MG; Start 11/16/18 at 09:00 Hydrocortisone (Cortef) 15 mg AC DINNER PEG Last administered on 11/17/18 17:55; Admin Dose 15 MG; Start 11/15/18 at 17:05 Acetazolamide (Diamox) 500 mg DAILY IV Last administered on 11/17/18 09:24; Admin Dose 500 MG; Start 11/16/18 at 09:30 Daptomycin 185 mg/ Sodium Chloride 100 ml @ 200 mls/hr Q24H IVPB Last administered on 11/17/18 16:14; Admin Dose 200 MLS/HR; Start 11/16/18 at 16:00; Stop 11/21/18 at 15:59 Enoxaparin Sodium (Lovenox) 30 mg DAILY SC Last administered on 11/17/18 10:31; Admin Dose 30 MG; Start 11/16/18 at 16:00 Insulin Aspart (Novolog Insulin Pen) NOVOLOG *CUSTOM* ALGORITHM Q6 SC Last administered on 11/17/18at 23:46; Admin Dose 1 UNIT; Start 11/17/18 at 12:00 Linagliptin (Tradjenta) 5 mg DAILY PO ; Start 11/18/18 at 09:00 TOMMY MARTELL Nov 18, 2018 10:52
[2018-11-18] MEDS: ENOXAPARIN 30 MG/0.3 ML SYG SC SCH (10:55)
--- NOTE | 2018-11-18 12:06 | CONS ---
Assessment/Plan Cardiology Heart Failure Type: Acute on Chronic Heart Failure Type: Systolic Assessment/Plan Hospital Course (Demo Recall) IMPRESSION: 1. Tachycardia- S tach. Ongoing Likley due to anxiety/infection/cardiomyopathy, multifactorial. Overall improved today 2. Hypotension-now off pressors with HTN but labile 3. Abnormal electrocardiogram at baseline. 4. Chronic respiratory failure, status post tracheostomy.-weaning vent support 5. Dysphagia, status post G-tube. 6. Quadriplegia. 7. Renal insufficiency, on steroids. 8. Chronic obstructive pulmonary disease. 9. Rheumatoid arthritis. 10. Chronic kidney disease. 11. Diabetes mellitus. 12.Adrenal insufficiency 14. cardiomyopathy-EF 35-40% by echo this admit 15. anemia Recc -ICU -Ongoing Vent support with inability to wean from High percentage FI02 -Continue abx's and f/u cx data -continue steroids -Follow volume status -Continue coreg and ACEI as tolerated -Continue now po digoxin and follow HR closely -Continue gentle lasix diuresis -started on fentanyl drip for patient comfort/tachypnea -Holding digoxin given elevated level -Now DNR Consultation Date/Type/Reason Admit Date/Time Oct 09, 2018 at 12:16 Initial Consult Date 10/09/18 Type of Consult Cardiology Reason for Consultation CHF/tachycardia Requesting Provider: NOLA VIDAL MD Date/Time of Note DATE: 11/18/18 TIME: 12:03 Exam/Review of Systems Vital Signs Vitals Vital Signs Date Temp Pulse Resp B/P (MAP) Pulse Ox O2 O2 Flow FiO2 Time Delivery Rate 11/18/18 132 26 90 85 11:20 11/18/18 112/80 Mechanical 06:00 (91) Ventilator 11/18/18 98.5 04:00 Intake and Output 11/17/18 11/17/18 11/18/18 1515:00 23:00 07:00 IntakeIntake Total 616.0 ml 796.5 ml 389.5 ml OutputOutput Total 1105 ml 270 ml BalanceBalance 616.0 ml -308.5 ml 119.5 ml Exam Exam Review of Systems: CONSTITUTIONAL: No fevers, chills. PULMONARY: No sob CARDIOVASCULAR: No chest pain/palpitations GASTROINTESTINAL: No nausea/vomiting. GENITOURINARY: No hematuria/dysuria. MUSCULOSKELETAL: No myagias/arthalgias. PSYCHIATRIC: The patient denies depression. NEUROLOGIC: No weakness Constitutional: alert, oriented Psych: no complaints Head: normocephalic ENMT: mucosa pink and moist Neck: supple, jvd (9 cm water) Respiratory: diminished breath sounds Cardiovascular: regular rate and rhythm Gastrointestinal: soft, non-tender Musculoskeletal: muscle tone (normal) Extremities: edema (none) Neurological: other (No focal deficits) Labs Result Diagram: 11/18/18 0500 11/18/18 0500 Results 24hrs Laboratory Tests Test 11/17/18 12:59 11/17/18 17:46 11/17/18 23:43 11/18/18 05:00 Bedside Glucose 152 152 166 White Blood Count 17.6 #H Red Blood Count 2.69 L Hemoglobin 7.4 L Hematocrit 25.7 L Mean Corpuscular Volume 95.5 Mean Corpuscular 27.5 L Hemoglobin Mean Corpuscular 28.8 L Hemoglobin Concent Red Cell Distribution 16.5 H Width Platelet Count 476 H Mean Platelet Volume 11.1 H Immature Granulocytes % 3.600 H Neutrophils % 65.1 Lymphocytes % 7.5 L Monocytes % 10.5 Eosinophils % 12.5 H Basophils % 0.8 Nucleated Red Blood 0.0 Cells % Immature Granulocytes # 0.630 H Neutrophils # 11.5 H Lymphocytes # 1.3 Monocytes # 1.8 H Eosinophils # 2.2 H Basophils # 0.1 Nucleated Red Blood 0.0 Cells # Sodium Level 142 Potassium Level 4.4 Chloride Level 99 Carbon Dioxide Level 39 H Anion Gap 4 L Blood Urea Nitrogen 33 H Creatinine 0.42 L Est Glomerular Filtrat > 60 Rate mL/min Glucose Level 109 Calcium Level 8.4 Phosphorus Level 3.0 Magnesium Level 2.1 Creatine Kinase < 20 L Test 11/18/18 05:48 Bedside Glucose 115 Medications Medications Current Medications Acetaminophen (Tylenol Liquid) 650 mg Q4H PRN GTB MILD PAIN(1-3)OR ELEVATED TEMP Last administered on 11/16/18at 12:03; Admin Dose 650 MG; Start 10/09/18 at 14:00 Al Hydrox/Mg Hydrox/Simethicone (Mag-Al Plus) 15 ml Q6H PRN PO GASTROINTESTINAL UPSET Last administered on 10/17/18at 13:18; Admin Dose 15 ML; Start 10/09/18 at 14:00 Eye Lubricant (Artificial Tears Oph) 1 drop Q6H PRN BOTH EYES DRY EYES Last administered on 11/03/18 09:33; Admin Dose 1 DROP; Start 10/09/18 at 14:00 Bisacodyl (Dulcolax Supp) 10 mg DAILY PRN [place] CONSTIPATION; Start 10/09/18 at 14:00 Clonidine (Catapres) 0.1 mg DAILY PRN GTB ELEVATED BLOOD PRESSURE; Start 10/09/18 at 14:00 Diltiazem HCl (Cardizem Iv) 5 mg Q4 PRN IV ELEVATED HEART RATE Last administered on 11/06/18 18:47; Admin Dose 5 MG; Start 10/09/18 at 14:00 Diphenhydramine HCl (Benadryl Liquid Cup) 25 mg Q6 PRN GTB ITCHING Last administered on 10/22/18 20:25; Admin Dose 25 MG; Start 10/09/18 at 14:00 Duloxetine HCl (Cymbalta) 30 mg DAILY PO Last administered on 11/18/18 10:43; Admin Dose 30 MG; Start 10/10/18 at 09:00 Gabapentin (Neurontin Liquid) 400 mg Q8 GTB Last administered on 11/18/18 05:49; Admin Dose 400 MG; Start 10/09/18 at 15:30 Hydralazine HCl (Apresoline) 10 mg Q4H PRN IV ELEVATED BLOOD PRESSURE; Start 10/09/18 at 14:00 Hydroxychloroquine Sulfate (Plaquenil) 200 mg BID PO Last administered on 11/18/18 10:45; Admin Dose 200 MG; Start 10/09/18 at 21:00 Lactobacillus Acidophilus (Florajen3 Capsule) 1 each BID GTB Last administered on 11/18/18 10:50; Admin Dose 1 EACH; Start 10/09/18 at 21:00 Lansoprazole (Prevacid) 30 mg BID@,18 GTB Last administered on 11/18/18 05:49; Admin Dose 30 MG; Start 10/09/18 at 18:00 Levetiracetam (Keppra Liquid) 500 mg BID GTB Last administered on 11/18/18 10:44; Admin Dose 500 MG; Start 10/09/18 at 21:00 Magnesium Oxide (Mag-Ox 400) 400 mg BID GTB Last administered on 11/18/18 10:46; Admin Dose 400 MG; Start 10/09/18 at 21:00 Metoclopramide HCl (Reglan) 10 mg TID IV Last administered on 11/17/18 20:25; Admin Dose 10 MG; Start 10/09/18 at 21:00 Miconazole Nitrate (Miconazole 2% Cr) 1 applic BID TOP Last administered on 11/18/18 10:48; Admin Dose 1 APPLIC; Start 10/09/18 at 21:00 Miconazole Nitrate (Miconazole 2% Cr) 1 applic Q12 PRN TOP rash; Start 10/09/18 at 14:00 Ondansetron HCl (Zofran Inj) 4 mg Q4H PRN IV NAUSEA AND/OR VOMITING Last administered on 10/19/18 16:37; Admin Dose 4 MG; Start 10/09/18 at 14:00 Polyethylene Glycol (Miralax) 17 gm DAILY PRN GTB CONSTIPATION; Start 10/09/18 at 14:00 Senna (Senokot) 2 tab Q8 PRN PO CONSTIPATION; Start 10/09/18 at 14:00 Trimethoprim/ Sulfamethoxazole (Bactrim Susp) 40 ml DAILY GTB Last administered on 11/18/18 10:47; Admin Dose 40 ML; Start 10/10/18 at 09:00 Zolpidem Tartrate (Ambien) 5 mg HS PRN PO INSOMNIA Last administered on 11/03/18 01:16; Admin Dose 5 MG; Start 10/09/18 at 14:00 Miscellaneous Information 1 ea NOTE XX ; Start 10/09/18 at 15:00 Glucose (Glutose) 15 gm Q15M PRN PO DECREASED GLUCOSE; Start 10/09/18 at 15:00 Glucose (Glutose) 22.5 gm Q15M PRN PO DECREASED GLUCOSE; Start 10/09/18 at 15:00 Dextrose (D50w Syringe) 25 ml Q15M PRN IV DECREASED GLUCOSE; Start 10/09/18 at 15:00 Dextrose (D50w Syringe) 50 ml Q15M PRN IV DECREASED GLUCOSE; Start 10/09/18 at 15:00 Glucagon (Glucagen) 1 mg Q15M PRN IM DECREASED GLUCOSE; Start 10/09/18 at 15:00 Glucose (Glutose) 15 gm Q15M PRN BUCCAL DECREASED GLUCOSE; Start 10/09/18 at 15:00 Albuterol (Ventolin Hfa) 4 puff Q6H RESP THERAPY INH Last administered on 11/18/18 01:23; Admin Dose 4 PUFF; Start 10/10/18 at 02:00 Ipratropium [place] (Atrovent Hfa) 4 puff Q6H RESP THERAPY INH Last administered on 11/18/18 01:22; Admin Dose 4 PUFF; Start 10/10/18 at 02:00 Quetiapine Fumarate (Seroquel) 100 mg BID GTB Last administered on 11/18/18 10:45; Admin Dose 100 MG; Start 10/21/18 at 21:00 Calcium Carbonate (Ca Carbonate) 1,250 mg QID GTB Last administered on 11/18/18 10:42; Admin Dose 1,250 MG; Start 10/24/18 at 13:00 Metoprolol Tartrate (Lopressor) 5 mg Q4H PRN IV HR>110 Hold SBP<100 Last administered on 11/11/18 18:31; Admin Dose 5 MG; Start 10/28/18 at 12:30 Phenylephrine HCl 40 mg/Dextrose 250 ml @ 37.5 mls/hr TITRATE IV Last administered on 11/02/18 09:05; Admin Dose 11.25 MLS/HR; Start 11/01/18 at 13:30 IV Flush (NS 10 ml) 10 ml PRN PRN IV IV PROTOCOL; Start 11/01/18 at 16:30 Norepinephrine 32 mg/Dextrose 250 ml @ 0.47 mls/hr TITRATE IV Last admi nistered on 11/02/18 12:15; Admin Dose 0.47 MLS/HR; Start 11/02/18 at 11:30 Midodrine (Proamatine) 5 mg TID@,,17 GTB Last administered on 11/08/18 12:53; Admin Dose 5 MG; Start 11/03/18 at 09:00; Status Hold Guaifenesin (Robitussin Liquid Cup) 100 mg Q4H PRN PO COUGH Last administered on 11/13/18 17:58; Admin Dose 100 MG; Start 11/03/18 at 12:00 Calcitriol (Rocaltrol) 1.5 mcg BID PO Last administered on 11/18/18 10:43; Admin Dose 1.5 MCG; Start 11/07/18 at 21:00 Lorazepam (Ativan) 1 mg Q4 GTB Last administered on 11/18/18 10:42; Admin Dose 1 MG; Start 11/09/18 at 14:00 Carvedilol (Coreg) 6.25 mg BID PO Last administered on 11/18/18 10:45; Admin Dose 6.25 MG; Start 11/09/18 at 21:00 Benazepril HCl (Lotensin) 10 mg DAILY PO Last administered on 11/18/18 10:41; Admin Dose 10 MG; Start 11/10/18 at 09:00 Digoxin (Digoxin) 0.25 mg DAILY@13 PO Last administered on 11/16/18 12:04; Admin Dose 0.25 MG; Start 11/11/18 at 13:00; Status Hold Furosemide (Lasix) 20 mg DAILY IV Last administered on 11/15/18 08:58; Admin Dose 20 MG; Start 11/10/18 at 12:30; Status Hold Hydromorphone HCl (Dilaudid) 3 mg Q4H PRN PO MODERATE PAIN LEVEL 7-10 Last administered on 11/17/18 01:47; Admin Dose 3 MG; Start 11/10/18 at 22:00 Cefepime HCl 50 ml @ 100 mls/hr Q12 IVPB Last administered on 11/18/18 10:47; Admin Dose 100 MLS/HR; Start 11/10/18 at 23:30 Fentanyl 100 ml @ 2.5 mls/hr TITRATE IV Last administered on 11/17/18 23:59; Admin Dose 3.5 MLS/HR; Start 11/14/18 at 09:00 Ascorbic Acid (Vitamin C) 250 mg DAILY GTB Last administered on 11/18/18 10:43; Admin Dose 250 MG; Start 11/15/18 at 09:00; Stop 11/29/18 at 09:00 Zinc Sulfate (Zinc Sulfate) 220 mg DAILY GTB Last administered on 11/18/18 10:44; Admin Dose 220 MG; Start 11/15/18 at 09:00; Stop 11/29/18 at 09:00 Hydrocortisone (Cortef) 15 mg HS PEG Last administered on 11/17/18 20:25; Admin Dose 15 MG; Start 11/15/18 at 21:00 Hydrocortisone (Cortef) 15 mg QAM PEG Last administered on 11/18/18 10:44; Admin Dose 15 MG; Start 11/16/18 at 09:00 Hydrocortisone (Cortef) 15 mg AC DINNER PEG Last administered on 11/17/18 17:55; Admin Dose 15 MG; Start 11/15/18 at 17:05 Acetazolamide (Diamox) 500 mg DAILY IV Last administered on 11/18/18 10:46; Admin Dose 500 MG; Start 11/16/18 at 09:30 Daptomycin 185 mg/ Sodium Chloride 100 ml @ 200 mls/hr Q24H IVPB Last administered on 11/17/18 16:14; Admin Dose 200 MLS/HR; Start 11/16/18 at 16:00; Stop 11/21/18 at 15:59 Enoxaparin Sodium (Lovenox) 30 mg DAILY SC Last administered on 11/18/18 10:55; Admin Dose 30 MG; Start 11/16/18 at 16:00 Insulin Aspart (Novolog Insulin Pen) NOVOLOG *CUSTOM* ALGORITHM Q6 SC Last administered on 11/17/18 23:46; Admin Dose 1 UNIT; Start 11/17/18 at 12:00 Linagliptin (Tradjenta) 5 mg DAILY PO Last administered on 11/18/18 10:46; Admin Dose 5 MG; Start 11/18/18 at 09:00 BRISA HAQUE Nov 18, 2018 12:06
[2018-11-18] MEDS ORDERED: SOD CHLORIDE 0.9% 1,000 ML IV ONE (14:00)
[2018-11-18] MEDS: DAPTOMYCIN IVPB SCH (15:49)
[2018-11-18] MEDS: SOD CHLORIDE 0.9% IVPB SCH (15:49)
--- NOTE | 2018-11-18 19:37 | CONS ---
Assessment/Plan Assessment/Plan Hospital Course (Demo Recall) # sepsis, respiratory - recurrent sepsis probably due to aspiration pneumonia, HCAP, UTI - s/p recurrent sepsis due to aspiration pneumonia, HCAP - possible aspiration pneumonia, recurrent pneumonia due to citrobacter - acute on chronic hypoxic and hypercarbic respiratory failure - intermittent leukocytosis likely due to steroid margination and sepsis - h/o tracheostomy on 08/26/2018 - h/o "Increased mild left apical pneumothorax" per CXR on 09/19/2018; no pneumothorax mentioned on subsequent CXR - h/o pneumomediastinum - h/o VAT on 08/11/2018 - h/o asthma/COPD exacerbation - h/o acute tracheobronchitis - h/o MAC infection but CT chest did not demonstrate features suggestive of this per chart review - h/o HCAP due to citrobacter, based on resp culture on 09/13/2018 - h/o aspergillus in resp culture according to a note by Dr. Lopez, a pulmonlogist at [facility] on 07/25/2018 - h/o elevated 1,3 Vmbc-H-vpnftz level = 232 on 08/06/2018 - h/o MSSA septicemia # GI - diarrhea, C diff on 10/09/2018 and 11/11/2018 was negative. 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 x 21 days from 08/26/2018 - h/o EGD, esophageal biopsy showed esophageal squamous mucosa showing acute inflammation, granulation tissue, and ulceration consistent with ulcerative esophagitis, rare multinucleated cells with morphology suggestive of vial cytopathic changes, No cardiac mucosa, intestinal metaplasia, dysplasia, or malignancy defined - GERD - PUD # renal/ - UTI due to enterococci 11/15/2018 - Hypokalemia, recurrent - CKD 2 - BPH # cardiac - tachycardia, persistent - ACD - HTN # endo - T2DM - Hgb A1c 7.2% - secondary adrenal insufficiency; steroid dependent - HLD - Hypoparathyroidism - Hypercalcemia - Pamidronate was ordered # neuro - toxic metabolic encephalopathy - Cervical myopathy - Severe cervical spinal cord stenosis with cord compression from C3-C5, s/p laminectomy in ~03/2018 - Chronic pain syndrome - Functional quadriplegia - Seizure d/o # other chronic conditions - RA with chronic steroid dependence - Immunocompromised status - Fibromyalgia - DDD - H/o multiple rib fracture - Pt completed: meropenem (09/25/2018-10/02/2018), vancomycin (09/25/18-09/28/18), pip/tazo (10/09/2018-10/15/2018) - so far: pneumocystis antigen negative, AFB smear negative and final culture x3 pending, quantiferon TB gold negative, coccidioides serology negative recommendations: - pending results: blood cultures x2, procalcitonin, 1,5-ivbz-S-glucan - d/c cefepime (restarted 11/10/2018-) - continue daptomycin (11/16/2018-11/21/2018 planned) 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 Pt cannot take linezolid due to its interaction with seroquel - continue Bactrim for pneumocystis PPX Management d/w [employer] Cristina the critical care time that I took to care for this Pt today was 30 min Consultation Date/Type/Reason Admit Date/Time Oct 09, 2018 at 12:16 Initial Consult Date 10/09/18 Type of Consult ID Requesting Provider: NOLA VIDAL MD Date/Time of Note DATE: 11/18/18 TIME: 19:34 24 HR Interval Summary Subjective hx not possible: pt non-verbal, pt critical, pt critical status Exam/Review of Systems Exam Vitals Vital Signs Date Temp Pulse Resp B/P (MAP) Pulse Ox O2 O2 Flow FiO2 Time Delivery Rate 11/18/18 108 24 97 90 17:07 11/18/18 112/80 Mechanical 06:00 (91) Ventilator 11/18/18 98.5 04:00 Intake and Output 11/17/18 11/17/18 11/18/18 1515:00 23:00 07:00 IntakeIntake Total 616.0 ml 796.5 ml 389.5 ml OutputOutput Total 1105 ml 270 ml BalanceBalance 616.0 ml -308.5 ml 119.5 ml Constitutional: non-verbal, frail Psych: confusion Head: normocephalic, atraumatic Eyes: nl conjunctiva, nl sclera, other (swollen lid, augusto-orbital swelling) ENMT: nl external ears & nose, nl nasal mucosa & septum Neck: other (trach) Respiratory: diminished breath sounds Cardiovascular: regular rate and rhythm, nl pulses Gastrointestinal: soft, non-tender, other (GT) Genitourinary - Male: other (FC) Musculoskeletal: nl extremities to inspection Extremities: No edema Neurological: lethargic Skin: nl turgor, rash or lesions (stage II decub of the sacrum) Results Result Diagram: 11/18/18 0500 11/18/18 0500 Results 24hrs Laboratory Tests Test 11/17/18 23:43 11/18/18 05:00 11/18/18 05:48 11/18/18 13:36 Bedside Glucose 166 115 101 White Blood Count 17.6 #H Red Blood Count 2.69 L Hemoglobin 7.4 L Hematocrit 25.7 L Mean Corpuscular Volume 95.5 Mean Corpuscular 27.5 L Hemoglobin Mean Corpuscular 28.8 L Hemoglobin Concent Red Cell Distribution 16.5 H Width Platelet Count 476 H Mean Platelet Volume 11.1 H Immature Granulocytes % 3.600 H Neutrophils % 65.1 Lymphocytes % 7.5 L Monocytes % 10.5 Eosinophils % 12.5 H Basophils % 0.8 Nucleated Red Blood 0.0 Cells % Immature Granulocytes # 0.630 H Neutrophils # 11.5 H Lymphocytes # 1.3 Monocytes # 1.8 H Eosinophils # 2.2 H Basophils # 0.1 Nucleated Red Blood 0.0 Cells # Sodium Level 142 Potassium Level 4.4 Chloride Level 99 Carbon Dioxide Level 39 H Anion Gap 4 L Blood Urea Nitrogen 33 H Creatinine 0.42 L Est Glomerular Filtrat > 60 Rate mL/min Glucose Level 109 Calcium Level 8.4 Phosphorus Level 3.0 Magnesium Level 2.1 Creatine Kinase < 20 L Test 11/18/18 18:23 Bedside Glucose 116 Medications Medication Current Medications Acetaminophen (Tylenol Liquid) 650 mg Q4H PRN GTB MILD PAIN(1-3)OR ELEVATED TEMP Last administered on 11/16/18at 12:03; Admin Dose 650 MG; Start 10/09/18 at 14:00 Al Hydrox/Mg Hydrox/Simethicone (Mag-Al Plus) 15 ml Q6H PRN PO GASTROINTESTINAL UPSET Last administered on 10/17/18at 13:18; Admin Dose 15 ML; Start 10/09/18 at 14:00 Eye Lubricant (Artificial Tears Oph) 1 drop Q6H PRN BOTH EYES DRY EYES Last administered on 11/03/18 09:33; Admin Dose 1 DROP; Start 10/09/18 at 14:00 Bisacodyl (Dulcolax Supp) 10 mg DAILY PRN [place] CONSTIPATION; Start 10/09/18 at 14:00 Clonidine (Catapres) 0.1 mg DAILY PRN GTB ELEVATED BLOOD PRESSURE; Start 10/09/18 at 14:00 Diltiazem HCl (Cardizem Iv) 5 mg Q4 PRN IV ELEVATED HEART RATE Last administered on 11/06/18 18:47; Admin Dose 5 MG; Start 10/09/18 at 14:00 Diphenhydramine HCl (Benadryl Liquid Cup) 25 mg Q6 PRN GTB ITCHING Last adm inistered on 10/22/18 20:25; Admin Dose 25 MG; Start 10/09/18 at 14:00 Duloxetine HCl (Cymbalta) 30 mg DAILY PO Last administered on 11/18/18 10:43; Admin Dose 30 MG; Start 10/10/18 at 09:00 Gabapentin (Neurontin Liquid) 400 mg Q8 GTB Last administered on 11/18/18 15:49; Admin Dose 400 MG; Start 10/09/18 at 15:30 Hydralazine HCl (Apresoline) 10 mg Q4H PRN IV ELEVATED BLOOD PRESSURE; Start 10/09/18 at 14:00 Hydroxychloroquine Sulfate (Plaquenil) 200 mg BID PO Last administered on 11/18/18 10:45; Admin Dose 200 MG; Start 10/09/18 at 21:00 Lactobacillus Acidophilus (Florajen3 Capsule) 1 each BID GTB Last administered on 11/18/18 10:50; Admin Dose 1 EACH; Start 10/09/18 at 21:00 Lansoprazole (Prevacid) 30 mg BID@18 GTB Last administered on 11/18/18 18:25; Admin Dose 30 MG; Start 10/09/18 at 18:00 Levetiracetam (Keppra Liquid) 500 mg BID GTB Last administered on 11/18/18 10:44; Admin Dose 500 MG; Start 10/09/18 at 21:00 Magnesium Oxide (Mag-Ox 400) 400 mg BID GTB Last administered on 4/5/19at 10:46; Admin Dose 400 MG; Start 10/09/18 at 21:00 Metoclopramide HCl (Reglan) 10 mg TID IV Last administered on 11/17/18at 20:25; Admin Dose 10 MG; Start 10/09/18 at 21:00 Miconazole Nitrate (Miconazole 2% Cr) 1 applic BID TOP Last administered on 11/18/18at 10:48; Admin Dose 1 APPLIC; Start 10/09/18 at 21:00 Miconazole Nitrate (Miconazole 2% Cr) 1 applic Q12 PRN TOP rash; Start 10/09/18 at 14:00 Ondansetron HCl (Zofran Inj) 4 mg Q4H PRN IV NAUSEA AND/OR VOMITING Last administered on 10/19/18at 16:37; Admin Dose 4 MG; Start 10/09/18 at 14:00 Polyethylene Glycol (Miralax) 17 gm DAILY PRN GTB CONSTIPATION; Start 10/09/18 at 14:00 Senna (Senokot) 2 tab Q8 PRN PO CONSTIPATION; Start 10/09/18 at 14:00 Trimethoprim/ Sulfamethoxazole (Bactrim Susp) 40 ml DAILY GTB Last administered on 11/18/18at 10:47; Admin Dose 40 ML; Start 10/10/18 at 09:00 Zolpidem Tartrate (Ambien) 5 mg HS PRN PO INSOMNIA Last administered on 11/03/18at 01:16; Admin Dose 5 MG; Start 10/09/18 at 14:00 Miscellaneous Information 1 ea NOTE XX ; Start 10/09/18 at 15:00 Glucose (Glutose) 15 gm Q15M PRN PO DECREASED GLUCOSE; Start 10/09/18 at 15:00 Glucose (Glutose) 22.5 gm Q15M PRN PO DECREASED GLUCOSE; Start 10/09/18 at 15:00 Dextrose (D50w Syringe) 25 ml Q15M PRN IV DECREASED GLUCOSE; Start 10/09/18 at 15:00 Dextrose (D50w Syringe) 50 ml Q15M PRN IV DECREASED GLUCOSE; Start 10/09/18 at 15:00 Glucagon (Glucagen) 1 mg Q15M PRN IM DECREASED GLUCOSE; Start 10/09/18 at 15:00 Glucose (Glutose) 15 gm Q15M PRN BUCCAL DECREASED GLUCOSE; Start 10/09/18 at 15:00 Albuterol (Ventolin Hfa) 4 puff Q6H RESP THERAPY INH Last administered on 11/18/18 13:15; Admin Dose 4 PUFF; Start 10/10/18 at 02:00 Ipratropium [place] (Atrovent Hfa) 4 puff Q6H RESP THERAPY INH Last administered on 11/18/18 13:14; Admin Dose 4 PUFF; Start 10/10/18 at 02:00 Quetiapine Fumarate (Seroquel) 100 mg BID GTB Last administered on 11/18/18 10:45; Admin Dose 100 MG; Start 10/21/18 at 21:00 Calcium Carbonate (Ca Carbonate) 1,250 mg QID GTB Last administered on 11/18/18 18:25; Admin Dose 1,250 MG; Start 10/24/18 at 13:00 Metoprolol Tartrate (Lopressor) 5 mg Q4H PRN IV HR>110 Hold SBP<100 Last administered on 11/11/18 18:31; Admin Dose 5 MG; Start 10/28/18 at 12:30 Phenylephrine HCl 40 mg/Dextrose 250 ml @ 37.5 mls/hr TITRATE IV Last administered on 11/02/18 09:05; Admin Dose 11.25 MLS/HR; Start 11/01/18 at 13:30 IV Flush (NS 10 ml) 10 ml PRN PRN IV IV PROTOCOL; Start 11/01/18 at 16:30 Norepinephrine 32 mg/Dextrose 250 ml @ 0.47 mls/hr TITRATE IV Last administered on 11/02/18 12:15; Admin Dose 0.47 MLS/HR; Start 11/02/18 at 11:30 Midodrine (Proamatine) 5 mg TID@,13,17 GTB Last administered on 11/08/18 12:53; Admin Dose 5 MG; Start 11/03/18 at 09:00; Status Hold Guaifenesin (Robitussin Liquid Cup) 100 mg Q4H PRN PO COUGH Last administered on 11/13/18 17:58; Admin Dose 100 MG; Start 11/03/18 at 12:00 Calcitriol (Rocaltrol) 1.5 mcg BID PO Last administered on 11/18/18 10:43; Admin Dose 1.5 MCG; Start 11/07/18 at 21:00 Lorazepam (Ativan) 1 mg Q4 GTB Last administered on 11/18/18 10:42; Admin Dose 1 MG; Start 11/09/18 at 14:00 Carvedilol (Coreg) 6.25 mg BID PO Last administered on 11/18/18 10:45; Admin Dose 6.25 MG; Start 11/09/18 at 21:00 Benazepril HCl (Lotensin) 10 mg DAILY PO Last administered on 11/18/18 10:41; Admin Dose 10 MG; Start 11/10/18 at 09:00 Digoxin (Digoxin) 0.25 mg DAILY@13 PO Last administered on 11/16/18 12:04; Admin Dose 0.25 MG; Start 11/11/18 at 13:00; Status Hold Furosemide (Lasix) 20 mg DAILY IV Last administered on 11/15/18 08:58; Admin Dose 20 MG; Start 11/10/18 at 12:30; Status Hold Hydromorphone HCl (Dilaudid) 3 mg Q4H PRN PO MODERATE PAIN LEVEL 7-10 Last administered on 11/17/18 01:47; Admin Dose 3 MG; Start 11/10/18 at 22:00 Cefepime HCl 50 ml @ 100 mls/hr Q12 IVPB Last administered on 11/18/18 10:47; Admin Dose 100 MLS/HR; Start 11/10/18 at 23:30 Fentanyl 100 ml @ 2.5 mls/hr TITRATE IV Last administered on 11/17/18 23:59; Admin Dose 3.5 MLS/HR; Start 11/14/18 at 09:00 Ascorbic Acid (Vitamin C) 250 mg DAILY GTB Last administered on 11/18/18 10:43; Admin Dose 250 MG; Start 11/15/18 at 09:00; Stop 11/29/18 at 09:00 Zinc Sulfate (Zinc Sulfate) 220 mg DAILY GTB Last administered on 11/18/18 10:44; Admin Dose 220 MG; Start 11/15/18 at 09:00; Stop 11/29/18 at 09:00 Hydrocortisone (Cortef) 15 mg HS PEG Last administered on 11/17/18 20:25; Admin Dose 15 MG; Start 11/15/18 at 21:00 Hydrocortisone (Cortef) 15 mg QAM PEG Last administered on 11/18/18 10:44; Admin Dose 15 MG; Start 11/16/18 at 09:00 Hydrocortisone (Cortef) 15 mg AC DINNER PEG Last administered on 11/18/18 18:25; Admin Dose 15 MG; Start 11/15/18 at 17:05 Acetazolamide (Diamox) 500 mg DAILY IV Last administered on 11/18/18 10:46; Admin Dose 500 MG; Start 11/16/18 at 09:30 Daptomycin 185 mg/ Sodium Chloride 100 ml @ 200 mls/hr Q24H IVPB Last administered on 11/18/18 15:49; Admin Dose 200 MLS/HR; Start 11/16/18 at 16:00; Stop 11/21/18 at 15:59 Enoxaparin Sodium (Lovenox) 30 mg DAILY SC Last administered on 11/18/18 10:55; Admin Dose 30 MG; Start 11/16/18 at 16:00 Insulin Aspart (Novolog Insulin Pen) NOVOLOG *CUSTOM* ALGORITHM Q6 SC Last administered on 11/17/18 23:46; Admin Dose 1 UNIT; Start 11/17/18 at 12:00 Linagliptin (Tradjenta) 5 mg DAILY PO Last administered on 11/18/18 10:46; Admin Dose 5 MG; Start 11/18/18 at 09:00 NEMO MARTINEZ M.D. Nov 18, 2018 19:37
[2018-11-19] VITALS (36 sets, daily range): BP systolic 74–130; BP diastolic 45–85; PULSE 100–129; RESP 17–36
[2018-11-19] MEDS: LORAZEPAM 1 MG TAB GTB SCH ×6 (01:00→20:28)
[2018-11-19] MEDS: ALBUTEROL HFA 8 GM INHALER INH SCH ×4 (02:03→19:09)
[2018-11-19] MEDS: IPRATROPIUM (HFA) 12.9 GM INHALER INH SCH ×4 (02:03→19:09)
[2018-11-19] MEDS: LANSOPRAZOLE 30 MG CAP GTB SCH ×2 (05:10→16:17)
[2018-11-19] MEDS: GABAPENTIN (50 MG/ML PO SYG) GTB SCH ×3 (05:10→22:11)
[2018-11-19] MEDS: INSULIN ASPART [NOVOLOG] 3 ML PEN SC SCH ×4 (05:41→23:34)
[2018-11-19] MEDS: METOCLOPRAMIDE 10 MG INJ IV SCH ×3 (08:29→20:24)
[2018-11-19] MEDS: ASCORBIC ACID 250 MG TAB GTB SCH (09:44)
[2018-11-19] MEDS: HYDROCORTISONE 5 MG TAB PEG SCH ×3 (09:44→20:24)
[2018-11-19] MEDS: CALCITRIOL 0.5 MCG CAPSULE PO SCH ×2 (09:45→20:24)
[2018-11-19] MEDS: HYDROXYCHLOROQUINE 200 MG TAB PO SCH ×2 (09:45→20:24)
[2018-11-19] MEDS: LINAGLIPTIN 5 MG TABLET PO SCH (09:45)
[2018-11-19] MEDS: MAGNESIUM OXIDE 400 MG TAB GTB SCH ×2 (09:45→20:25)
[2018-11-19] MEDS: QUETIAPINE 100 MG TAB GTB SCH ×2 (09:46→20:25)
[2018-11-19] MEDS: BENAZEPRIL 10 MG TAB PO SCH (09:46)
[2018-11-19] MEDS: CEFEPIME 1GM/50 ML (PMX) 50 ML IVPB SCH ×2 (09:46→20:25)
[2018-11-19] MEDS: TRIMETHOPRIM/SULFAMETHOX (PO SYG) GTB SCH (09:46)
[2018-11-19] MEDS: DULOXETINE 30 MG CAP DR PO SCH (09:47)
[2018-11-19] MEDS: L ACIDOPHIL/B LACTIS/B LONGUM CAPSULE GTB SCH ×2 (09:47→20:24)
[2018-11-19] MEDS: CA CARBONATE (250 MG/ML) 5ML CUP GTB SCH ×3 (09:47→20:24)
[2018-11-19] MEDS: ZINC SULFATE 220 MG CAP GTB SCH (09:47)
[2018-11-19] MEDS: LEVETIRACETAM (100 MG/ML) 5ML CUP GTB SCH ×2 (09:47→20:24)
[2018-11-19] MEDS: ACETAZOLAMIDE 500 MG INJ IV SCH (09:47)
[2018-11-19] MEDS: BALSAM PERU/CASTOR OIL 60 GM TUBE TOP SCH ×2 (09:48→20:25)
[2018-11-19] MEDS: MICONAZOLE 2% 30 GM CR TOP SCH ×2 (09:48→20:25)
[2018-11-19] MEDS: ENOXAPARIN 30 MG/0.3 ML SYG SC SCH (10:11)
--- NOTE | 2018-11-19 11:30 | CONS ---
Assessment/Plan Assessment/Plan Assessment/Plan (Daily) 1. Nonoliguric acute kidney injury with previously normal baseline creatinine. Etiology of acute kidney injury is secondary to hemodynamics. Renal function is improved. Continue to monitor. 2. Mixed acid base disorder. The patient has metabolic alkalosis with compensatory respiratory acidosis. continue diamox. Bicarbonate levels have been improving. Continue to monitor. Monitor electrolytes closely. 3. Volume overload, improving. Continue current diuretic regimen. 4. Ventilator dependent respiratory failure. Vent settings and ABG was reviewed. Continue to monitor. 5. Adrenal insufficiency. Continue Cortef. 6. Dysphagia, status post PEG-tube feeding. 7. Hypertension. Continue current blood pressure regimen. 8. Hypomagnesemia. Continue to monitor and replete. 9. Mineral bone disorder. Monitor calcium and phosphorus levels. Continue vitamin D analogs. 10. Status post shock. 11. Anxiety disorder. Consultation Date/Type/Reason Admit Date/Time Oct 09, 2018 at 12:16 Initial Consult Date 10/12/18 Requesting Provider: NOLA VIDAL MD Date/Time of Note DATE: 11/19/18 TIME: 11:28 24 HR Interval Summary Free Text/Dictation adequate urine output remains on the vent d/w rn gen: nad cv rrr pulm coarse bs abd soft, nd, nt +bs ext: no edema Exam/Review of Systems Exam Vitals Vital Signs Date Temp Pulse Resp B/P (MAP) Pulse Ox O2 O2 Flow FiO2 Time Delivery Rate 11/19/18 128 08:00 11/19/18 27 108/70 98 Mechanical 07:00 (83) Ventilator 11/19/18 90 05:57 11/19/18 98.5 04:00 Intake and Output 11/18/18 11/18/18 11/19/18 1515:00 23:00 07:00 IntakeIntake Total 1473.0 ml 743.00 ml 332.0 ml OutputOutput Total 750 ml 440 ml BalanceBalance 1473.0 ml -7.00 ml -108.0 ml Results Result Diagram: 11/19/18 0511/19/18511 Results 24hrs Laboratory Tests Test 11/18/18 13:36 11/18/18 18:23 11/18/18 23:42 11/19/18 05:12 Bedside Glucose 101 116 120 White Blood Count 15.4 H Red Blood Count 2.58 L Hemoglobin 7.0 L Hematocrit 24.5 L Mean Corpuscular 95.0 Volume Mean Corpuscular 27.1 L Hemoglobin Mean Corpuscular 28.6 L Hemoglobin Concent Red Cell Distribution 16.6 H Width Platelet Count 434 H Mean Platelet Volume 11.1 H Immature Granulocytes 4.000 H % Neutrophils % 70.1 Lymphocytes % 7.1 L Monocytes % 8.3 Eosinophils % 9.7 H Basophils % 0.8 Nucleated Red Blood 0.0 Cells % Immature Granulocytes 0.620 H # Neutrophils # 10.8 H Lymphocytes # 1.1 Monocytes # 1.3 H Eosinophils # 1.5 H Basophils # 0.1 Nucleated Red Blood 0.0 Cells # Sodium Level 142 Potassium Level 4.2 Chloride Level 101 Carbon Dioxide Level 38 H Anion Gap 3 L Blood Urea Nitrogen 29 H Creatinine 0.46 L Est Glomerular > 60 Filtrat Rate mL/min Glucose Level 102 Calcium Level 8.9 Phosphorus Level 3.4 Magnesium Level 2.1 Test 11/19/18 05:32 11/19/18 10:37 Bedside Glucose 122 Lab Scanned Report REFERENCE LAB Medications Medication Current Medications Acetaminophen (Tylenol Liquid) 650 mg Q4H PRN GTB MILD PAIN(1-3)OR ELEVATED TEMP Last administered on 11/16/18 12:03; Admin Dose 650 MG; Start 10/09/18 at 14:00 Al Hydrox/Mg Hydrox/Simethicone (Mag-Al Plus) 15 ml Q6H PRN PO GASTROINTESTINAL UPSET Last administered on 10/17/18 13:18; Admin Dose 15 ML; Start 10/09/18 at 14:00 Eye Lubricant (Artificial Tears Oph) 1 drop Q6H PRN BOTH EYES DRY EYES Last administered on 11/03/18at 09:33; Admin Dose 1 DROP; Start 10/09/18 at 14:00 Bisacodyl (Dulcolax Supp) 10 mg DAILY PRN [place] CONSTIPATION; Start 10/09/18 at 14:00 Clonidine (Catapres) 0.1 mg DAILY PRN GTB ELEVATED BLOOD PRESSURE; Start 10/09/18 at 14:00 Diltiazem HCl (Cardizem Iv) 5 mg Q4 PRN IV ELEVATED HEART RATE Last administered on 11/06/18at 18:47; Admin Dose 5 MG; Start 10/09/18 at 14:00 Diphenhydramine HCl (Benadryl Liquid Cup) 25 mg Q6 PRN GTB ITCHING Last administered on 10/22/18 20:25; Admin Dose 25 MG; Start 10/09/18 at 14:00 Duloxetine HCl (Cymbalta) 30 mg DAILY PO Last administered on 11/19/18 09:47; Admin Dose 30 MG; Start 10/10/18 at 09:00 Gabapentin (Neurontin Liquid) 400 mg Q8 GTB Last administered on 11/19/18 05:10; Admin Dose 400 MG; Start 10/09/18 at 15:30 Hydralazine HCl (Apresoline) 10 mg Q4H PRN IV ELEVATED BLOOD PRESSURE; Start 10/09/18 at 14:00 Hydroxychloroquine Sulfate (Plaquenil) 200 mg BID PO Last administered on 11/19/18 09:45; Admin Dose 200 MG; Start 10/09/18 at 21:00 Lactobacillus Acidophilus (Florajen3 Capsule) 1 each BID GTB Last administered on 11/19/18 09:47; Admin Dose 1 EACH; Start 10/09/18 at 21:00 Lansoprazole (Prevacid) 30 mg BID@06,18 GTB Last administered on 11/19/18 05:10; Admin Dose 30 MG; Start 10/09/18 at 18:00 Levetiracetam (Keppra Liquid) 500 mg BID GTB Last administered on 11/19/18 09:47; Admin Dose 500 MG; Start 10/09/18 at 21:00 Magnesium Oxide (Mag-Ox 400) 400 mg BID GTB Last administered on 11/19/18 09:45; Admin Dose 400 MG; Start 10/09/18 at 21:00 Metoclopramide HCl (Reglan) 10 mg TID IV Last administered on 11/18/18 21:17; Admin Dose 10 MG; Start 10/09/18 at 21:00 Miconazole Nitrate (Miconazole 2% Cr) 1 applic BID TOP Last administered on 11/19/18 09:48; Admin Dose 1 APPLIC; Start 10/09/18 at 21:00 Miconazole Nitrate (Miconazole 2% Cr) 1 applic Q12 PRN TOP rash; Start 10/09/18 at 14:00 Ondansetron HCl (Zofran Inj) 4 mg Q4H PRN IV NAUSEA AND/OR VOMITING Last administered on 10/19/18 16:37; Admin Dose 4 MG; Start 10/09/18 at 14:00 Polyethylene Glycol (Miralax) 17 gm DAILY PRN GTB CONSTIPATION; Start 10/09/18 at 14:00 Senna (Senokot) 2 tab Q8 PRN PO CONSTIPATION; Start 10/09/18 at 14:00 Trimethoprim/ Sulfamethoxazole (Bactrim Susp) 40 ml DAILY GTB Last administered on 11/19/18 09:46; Admin Dose 40 ML; Start 10/10/18 at 09:00 Zolpidem Tartrate (Ambien) 5 mg HS PRN PO INSOMNIA Last administered on 11/03/18 01:16; Admin Dose 5 MG; Start 10/09/18 at 14:00 Miscellaneous Information 1 ea NOTE XX ; Start 10/09/18 at 15:00 Glucose (Glutose) 15 gm Q15M PRN PO DECREASED GLUCOSE; Start 10/09/18 at 15:00 Glucose (Glutose) 22.5 gm Q15M PRN PO DECREASED GLUCOSE; Start 10/09/18 at 15:00 Dextrose (D50w Syringe) 25 ml Q15M PRN IV DECREASED GLUCOSE; Start 10/09/18 at 15:00 Dextrose (D50w Syringe) 50 ml Q15M PRN IV DECREASED GLUCOSE; Start 10/09/18 at 15:00 Glucagon (Glucagen) 1 mg Q15M PRN IM DECREASED GLUCOSE; Start 10/09/18 at 15:00 Glucose (Glutose) 15 gm Q15M PRN BUCCAL DECREASED GLUCOSE; Start 10/09/18 at 15:00 Albuterol (Ventolin Hfa) 4 puff Q6H RESP THERAPY INH Last administered on 11/19/18 07:54; Admin Dose 4 PUFF; Start 10/10/18 at 02:00 Ipratropium [place] (Atrovent Hfa) 4 puff Q6H RESP THERAPY INH Last administered on 11/19/18 07:54; Admin Dose 4 PUFF; Start 10/10/18 at 02:00 Quetiapine Fumarate (Seroquel) 100 mg BID GTB Last administered on 11/19/18 09:46; Admin Dose 100 MG; Start 10/21/18 at 21:00 Calcium Carbonate (Ca Carbonate) 1,250 mg QID GTB Last administered on 11/19/18 09:47; Admin Dose 1,250 MG; Start 10/24/18 at 13:00 Metoprolol Tartrate (Lopressor) 5 mg Q4H PRN IV HR>110 Hold SBP<100 Last administered on 11/11/18 18:31; Admin Dose 5 MG; Start 10/28/18 at 12:30 Phenylephrine HCl 40 mg/Dextrose 250 ml @ 37.5 mls/hr TITRATE IV Last administered on 11/02/18 09:05; Admin Dose 11.25 MLS/HR; Start 11/01/18 at 13:30 IV Flush (NS 10 ml) 10 ml PRN PRN IV IV PROTOCOL; Start 11/01/18 at 16:30 Norepinephrine 32 mg/Dextrose 250 ml @ 0.47 mls/hr TITRATE IV Last administ ered on 11/02/18 12:15; Admin Dose 0.47 MLS/HR; Start 11/02/18 at 11:30 Midodrine (Proamatine) 5 mg TID@,,17 GTB Last administered on 11/08/18 12:53; Admin Dose 5 MG; Start 11/03/18 at 09:00; Status Hold Guaifenesin (Robitussin Liquid Cup) 100 mg Q4H PRN PO COUGH Last administered on 11/13/18 17:58; Admin Dose 100 MG; Start 11/03/18 at 12:00 Calcitriol (Rocaltrol) 1.5 mcg BID PO Last administered on 11/19/18 09:45; Admin Dose 1.5 MCG; Start 11/07/18 at 21:00 Lorazepam (Ativan) 1 mg Q4 GTB Last administered on 11/19/18 09:46; Admin Dose 1 MG; Start 11/09/18 at 14:00 Carvedilol (Coreg) 6.25 mg BID PO Last administered on 11/19/18 09:46; Admin Dose 6.25 MG; Start 11/09/18 at 21:00 Benazepril HCl (Lotensin) 10 mg DAILY PO Last administered on 11/19/18 09:46; Admin Dose 10 MG; Start 11/10/18 at 09:00 Digoxin (Digoxin) 0.25 mg DAILY@13 PO Last administered on 11/16/18 12:04; Adm in Dose 0.25 MG; Start 11/11/18 at 13:00; Status Hold Furosemide (Lasix) 20 mg DAILY IV Last administered on 11/15/18 08:58; Admin Dose 20 MG; Start 11/10/18 at 12:30; Status Hold Hydromorphone HCl (Dilaudid) 3 mg Q4H PRN PO MODERATE PAIN LEVEL 7-10 Last administered on 11/17/18 01:47; Admin Dose 3 MG; Start 11/10/18 at 22:00 Cefepime HCl 50 ml @ 100 mls/hr Q12 IVPB Last administered on 11/19/18 09:46; Admin Dose 100 MLS/HR; Start 11/10/18 at 23:30 Fentanyl 100 ml @ 2.5 mls/hr TITRATE IV Last administered on 11/17/18 23:59; Admin Dose 3.5 MLS/HR; Start 11/14/18 at 09:00 Ascorbic Acid (Vitamin C) 250 mg DAILY GTB Last administered on 11/19/18 09:44; Admin Dose 250 MG; Start 11/15/18 at 09:00; Stop 11/29/18 at 09:00 Zinc Sulfate (Zinc Sulfate) 220 mg DAILY GTB Last administered on 11/19/18 09:47; Admin Dose 220 MG; Start 11/15/18 at 09:00; Stop 11/29/18 at 09:00 Hydrocortisone (Cortef) 15 mg HS PEG Last administered on 11/18/18 21:17; Admin Dose 15 MG; Start 11/15/18 at 21:00 Hydrocortisone (Cortef) 15 mg QAM PEG Last administered on 11/19/18 09:44; Admin Dose 15 MG; Start 11/16/18 at 09:00 Hydrocortisone (Cortef) 15 mg AC DINNER PEG Last administered on 11/18/18 18:25; Admin Dose 15 MG; Start 11/15/18 at 17:05 Acetazolamide (Diamox) 500 mg DAILY IV Last administered on 11/19/18 09:47; Admin Dose 500 MG; Start 11/16/18 at 09:30 Daptomycin 185 mg/ Sodium Chloride 100 ml @ 200 mls/hr Q24H IVPB Last administered on 11/18/18 15:49; Admin Dose 200 MLS/HR; Start 11/16/18 at 16:00; Stop 11/21/18 at 15:59 Enoxaparin Sodium (Lovenox) 30 mg DAILY SC Last administered on 11/19/18at 10:11; Admin Dose 30 MG; Start 11/16/18 at 16:00 Insulin Aspart (Novolog Insulin Pen) NOVOLOG *CUSTOM* ALGORITHM Q6 SC Last administered on 11/17/18at 23:46; Admin Dose 1 UNIT; Start 11/17/18 at 12:00 Linagliptin (Tradjenta) 5 mg DAILY PO Last administered on 11/19/18at 09:45; Admin Dose 5 MG; Start 11/18/18 at 09:00 RISHABH MILLAN MD Nov 19, 2018 11:30
--- NOTE | 2018-11-19 11:44 | PN ---
Date/Time of Note Date/Time of Note DATE: 11/19/18 TIME: 11:43 Assessment/Plan VTE [place] [facility] [place]: 8 [place] [facility] [place] SCD contraindicated: other Pharmacological prophylaxis: LMWH Lines/Catheters IV Catheter Type (from [facility]): PICC Line Central line still needed: Yes Urinary Cath still in place: No Assessment/Plan Hospital Course - Acute on chronic hypoxemic respiratory failure with underlying ARDS, continue ventilatory support. Dr. Villa is following in pulmonology consultation. - Recurrent sepsis secondary to pneumonia and UTI. Continue antibiotics per ID. Dr. Canales is following in infection disease consultation. - Acute kidney injury, resolved, continue to monitor BUN and creatinine. Dr. Ra montes de oca is following in nephrology consultation. - Tachycardia, Dr. Joshi is following in cardiology consultation. - Cardiomyopathy with EF 35-40% - Rheumatoid arthritis with steroid dependence. - Dysphagia. Continue GT feeding. - Anemia of chronic disease. - Hypoparathyroidism - Hypertension. - Functional quadriplegia - Hx of severe cervical spinal cord stenosis with cord compression from C3-C5, s/p laminectomy. - History of fibromyalgia rheumatica - Hx of VAT on 08/11/2018 - Poor prognosis, Dr. Zurita is following in palliative care consultation. - DNR status Spoke with , she is going to change code status to include no further vasopressors Result Diagram: 11/19/18 0511/19/18 0512 Results 24hrs Laboratory Tests Test 11/18/18 13:36 11/18/18 18:23 11/18/18 23:42 11/19/18 05:12 Bedside Glucose 101 116 120 White Blood Count 15.4 H Red Blood Count 2.58 L Hemoglobin 7.0 L Hematocrit 24.5 L Mean Corpuscular 95.0 Volume Mean Corpuscular 27.1 L Hemoglobin Mean Corpuscular 28.6 L Hemoglobin Concent Red Cell Distribution 16.6 H Width Platelet Count 434 H Mean Platelet Volume 11.1 H Immature Granulocytes 4.000 H % Neutrophils % 70.1 Lymphocytes % 7.1 L Monocytes % 8.3 Eosinophils % 9.7 H Basophils % 0.8 Nucleated Red Blood 0.0 Cells % Immature Granulocytes 0.620 H # Neutrophils # 10.8 H Lymphocytes # 1.1 Monocytes # 1.3 H Eosinophils # 1.5 H Basophils # 0.1 Nucleated Red Blood 0.0 Cells # Sodium Level 142 Potassium Level 4.2 Chloride Level 101 Carbon Dioxide Level 38 H Anion Gap 3 L Blood Urea Nitrogen 29 H Creatinine 0.46 L Est Glomerular > 60 Filtrat Rate mL/min Glucose Level 102 Calcium Level 8.9 Phosphorus Level 3.4 Magnesium Level 2.1 Test 11/19/18 05:32 11/19/18 10:37 Bedside Glucose 122 Lab Scanned Report REFERENCE LAB Subjective 24 Hr Interval Summary Free Text/Dictation Patient is sedated, not responsive to voice or touch Exam/Review of Systems Exam Vitals Vital Signs Date Temp Pulse Resp B/P (MAP) Pulse Ox O2 O2 Flow FiO2 Time Delivery Rate 11/19/18 128 08:00 11/19/18 27 108/70 98 Mechanical 07:00 (83) Ventilator 11/19/18 90 05:57 11/19/18 98.5 04:00 Intake and Output 11/18/18 11/18/18 11/19/18 1515:00 23:00 07:00 IntakeIntake Total 1473.0 ml 743.00 ml 332.0 ml OutputOutput Total 750 ml 440 ml BalanceBalance 1473.0 ml -7.00 ml -108.0 ml Constitutional: well developed Head: normocephalic, atraumatic Neck: supple Respiratory: diminished breath sounds Cardiovascular: regular rate and rhythm Gastrointestinal: soft, non-tender Extremities: normal pulses Results Results 24hrs Laboratory Tests Test 11/18/18 13:36 11/18/18 18:23 11/18/18 23:42 11/19/18 05:12 Bedside Glucose 101 116 120 White Blood Count 15.4 H Red Blood Count 2.58 L Hemoglobin 7.0 L Hematocrit 24.5 L Mean Corpuscular 95.0 Volume Mean Corpuscular 27.1 L Hemoglobin Mean Corpuscular 28.6 L Hemoglobin Concent Red Cell Distribution 16.6 H Width Platelet Count 434 H Mean Platelet Volume 11.1 H Immature Granulocytes 4.000 H % Neutrophils % 70.1 Lymphocytes % 7.1 L Monocytes % 8.3 Eosinophils % 9.7 H Basophils % 0.8 Nucleated Red Blood 0.0 Cells % Immature Granulocytes 0.620 H # Neutrophils # 10.8 H Lymphocytes # 1.1 Monocytes # 1.3 H Eosinophils # 1.5 H Basophils # 0.1 Nucleated Red Blood 0.0 Cells # Sodium Level 142 Potassium Level 4.2 Chloride Level 101 Carbon Dioxide Level 38 H Anion Gap 3 L Blood Urea Nitrogen 29 H Creatinine 0.46 L Est Glomerular > 60 Filtrat Rate mL/min Glucose Level 102 Calcium Level 8.9 Phosphorus Level 3.4 Magnesium Level 2.1 Test 11/19/18 05:32 11/19/18 10:37 Bedside Glucose 122 Lab Scanned Report REFERENCE LAB Medications Medication Current Medications Acetaminophen (Tylenol Liquid) 650 mg Q4H PRN GTB MILD PAIN(1-3)OR ELEVATED TEMP Last administered on 11/16/18 12:03; Admin Dose 650 MG; Start 10/09/18 at 14:00 Al Hydrox/Mg Hydrox/Simethicone (Mag-Al Plus) 15 ml Q6H PRN PO GASTROINTESTINAL UPSET Last administered on 10/17/18 13:18; Admin Dose 15 ML; Start 10/09/18 at 14:00 Eye Lubricant (Artificial Tears Oph) 1 drop Q6H PRN BOTH EYES DRY EYES Last administered on 11/03/18 09:33; Admin Dose 1 DROP; Start 10/09/18 at 14:00 Bisacodyl (Dulcolax Supp) 10 mg DAILY PRN [place] CONSTIPATION; Start 10/09/18 at 14:00 Clonidine (Catapres) 0.1 mg DAILY PRN GTB ELEVATED BLOOD PRESSURE; Start 10/09/18 at 14:00 Diltiazem HCl (Cardizem Iv) 5 mg Q4 PRN IV ELEVATED HEART RATE Last administered on 11/06/18 18:47; Admin Dose 5 MG; Start 10/09/18 at 14:00 Diphenhydramine HCl (Benadryl Liquid Cup) 25 mg Q6 PRN GTB ITCHING Last administered on 10/22/18 20:25; Admin Dose 25 MG; Start 10/09/18 at 14:00 Duloxetine HCl (Cymbalta) 30 mg DAILY PO Last administered on 11/19/18 09:47; Admin Dose 30 MG; Start 10/10/18 at 09:00 Gabapentin (Neurontin Liquid) 400 mg Q8 GTB Last administered on 11/19/18 05:10; Admin Dose 400 MG; Start 10/09/18 at 15:30 Hydralazine HCl (Apresoline) 10 mg Q4H PRN IV ELEVATED BLOOD PRESSURE; Start 10/09/18 at 14:00 Hydroxychloroquine Sulfate (Plaquenil) 200 mg BID PO Last administered on 11/19/18 09:45; Admin Dose 200 MG; Start 10/09/18 at 21:00 Lactobacillus Acidophilus (Florajen3 Capsule) 1 each BID GTB Last administered on 11/19/18 09:47; Admin Dose 1 EACH; Start 10/09/18 at 21:00 Lansoprazole (Prevacid) 30 mg BID@,18 GTB Last administered on 11/19/18 05:10; Admin Dose 30 MG; Start 10/09/18 at 18:00 Levetiracetam (Keppra Liquid) 500 mg BID GTB Last administered on 11/19/18 09:47; Admin Dose 500 MG; Start 10/09/18 at 21:00 Magnesium Oxide (Mag-Ox 400) 400 mg BID GTB Last administered on 11/19/18 09:45; Admin Dose 400 MG; Start 10/09/18 at 21:00 Metoclopramide HCl (Reglan) 10 mg TID IV Last administered on 11/18/18 21:17; Admin Dose 10 MG; Start 10/09/18 at 21:00 Miconazole Nitrate (Miconazole 2% Cr) 1 applic BID TOP Last administered on 11/19/18 09:48; Admin Dose 1 APPLIC; Start 10/09/18 at 21:00 Miconazole Nitrate (Miconazole 2% Cr) 1 applic Q12 PRN TOP rash; Start 10/09/18 at 14:00 Ondansetron HCl (Zofran Inj) 4 mg Q4H PRN IV NAUSEA AND/OR VOMITING Last administered on 10/19/18 16:37; Admin Dose 4 MG; Start 10/09/18 at 14:00 Polyethylene Glycol (Miralax) 17 gm DAILY PRN GTB CONSTIPATION; Start 10/09/18 at 14:00 Senna (Senokot) 2 tab Q8 PRN PO CONSTIPATION; Start 10/09/18 at 14:00 Trimethoprim/ Sulfamethoxazole (Bactrim Susp) 40 ml DAILY GTB Last administered on 11/19/18 09:46; Admin Dose 40 ML; Start 10/10/18 at 09:00 Zolpidem Tartrate (Ambien) 5 mg HS PRN PO INSOMNIA Last administered on 11/03/18at 01:16; Admin Dose 5 MG; Start 10/09/18 at 14:00 Miscellaneous Information 1 ea NOTE XX ; Start 10/09/18 at 15:00 Glucose (Glutose) 15 gm Q15M PRN PO DECREASED GLUCOSE; Start 10/09/18 at 15:00 Glucose (Glutose) 22.5 gm Q15M PRN PO DECREASED GLUCOSE; Start 10/09/18 at 15:00 Dextrose (D50w Syringe) 25 ml Q15M PRN IV DECREASED GLUCOSE; Start 10/09/18 at 15:00 Dextrose (D50w Syringe) 50 ml Q15M PRN IV DECREASED GLUCOSE; Start 10/09/18 at 15:00 Glucagon (Glucagen) 1 mg Q15M PRN IM DECREASED GLUCOSE; Start 10/09/18 at 15:00 Glucose (Glutose) 15 gm Q15M PRN BUCCAL DECREASED GLUCOSE; Start 10/09/18 at 15:00 Albuterol (Ventolin Hfa) 4 puff Q6H RESP THERAPY INH Last administered on 11/19/18 07:54; Admin Dose 4 PUFF; Start 10/10/18 at 02:00 Ipratropium [place] (Atrovent Hfa) 4 puff Q6H RESP THERAPY INH Last administered on 11/19/18at 07:54; Admin Dose 4 PUFF; Start 10/10/18 at 02:00 Quetiapine Fumarate (Seroquel) 100 mg BID GTB Last administered on 11/19/18at 09:46; Admin Dose 100 MG; Start 10/21/18 at 21:00 Calcium Carbonate (Ca Carbonate) 1,250 mg QID GTB Last administered on 11/19/18at 09:47; Admin Dose 1,250 MG; Start 10/24/18 at 13:00 Metoprolol Tartrate (Lopressor) 5 mg Q4H PRN IV HR>110 Hold SBP<100 Last administered on 11/11/18at 18:31; Admin Dose 5 MG; Start 10/28/18 at 12:30 IV Flush (NS 10 ml) 10 ml PRN PRN IV IV PROTOCOL; Start 11/01/18 at 16:30 Midodrine (Proamatine) 5 mg TID@09,13,17 GTB Last administered on 11/08/18 12:53; Admin Dose 5 MG; Start 11/03/18 at 09:00; Status Hold Guaifenesin (Robitussin Liquid Cup) 100 mg Q4H PRN PO COUGH Last administered on 11/13/18 17:58; Admin Dose 100 MG; Start 11/03/18 at 12:00 Calcitriol (Rocaltrol) 1.5 mcg BID PO Last administered on 11/19/18 09:45; Admin Dose 1.5 MCG; Start 11/07/18 at 21:00 Lorazepam (Ativan) 1 mg Q4 GTB Last administered on 11/19/18 09:46; Admin Dose 1 MG; Start 11/09/18 at 14:00 Carvedilol (Coreg) 6.25 mg BID PO Last administered on 11/19/18 09:46; Admin Do se 6.25 MG; Start 11/09/18 at 21:00 Benazepril HCl (Lotensin) 10 mg DAILY PO Last administered on 11/19/18 09:46; Admin Dose 10 MG; Start 11/10/18 at 09:00 Digoxin (Digoxin) 0.25 mg DAILY@13 PO Last administered on 11/16/18 12:04; Admin Dose 0.25 MG; Start 11/11/18 at 13:00; Status Hold Furosemide (Lasix) 20 mg DAILY IV Last administered on 11/15/18 08:58; Admin Dose 20 MG; Start 11/10/18 at 12:30; Status Hold Hydromorphone HCl (Dilaudid) 3 mg Q4H PRN PO MODERATE PAIN LEVEL 7-10 Last administered on 11/17/18 01:47; Admin Dose 3 MG; Start 11/10/18 at 22:00 Cefepime HCl 50 ml @ 100 mls/hr Q12 IVPB Last administered on 11/19/18 09:46; Admin Dose 100 MLS/HR; Start 11/10/18 at 23:30 Fentanyl 100 ml @ 2.5 mls/hr TITRATE IV Last administered on 11/17/18 23:59; Admin Dose 3.5 MLS/HR; Start 11/14/18 at 09:00 Ascorbic Acid (Vitamin C) 250 mg DAILY GTB Last administered on 11/19/18 09:44; Admin Dose 250 MG; Start 11/15/18 at 09:00; Stop 11/29/18 at 09:00 Zinc Sulfate (Zinc Sulfate) 220 mg DAILY GTB Last administered on 11/19/18 09:47; Admin Dose 220 MG; Start 11/15/18 at 09:00; Stop 11/29/18 at 09:00 Hydrocortisone (Cortef) 15 mg HS PEG Last administered on 11/18/18 21:17; Admin Dose 15 MG; Start 11/15/18 at 21:00 Hydrocortisone (Cortef) 15 mg QAM PEG Last administered on 11/19/18 09:44; Admin Dose 15 MG; Start 11/16/18 at 09:00 Hydrocortisone (Cortef) 15 mg AC DINNER PEG Last administered on 11/18/18 18:25; Admin Dose 15 MG; Start 11/15/18 at 17:05 Acetazolamide (Diamox) 500 mg DAILY IV Last administered on 11/19/18 09:47; Admin Dose 500 MG; Start 11/16/18 at 09:30 Daptomycin 185 mg/ Sodium Chloride 100 ml @ 200 mls/hr Q24H IVPB Last administered on 11/18/18 15:49; Admin Dose 200 MLS/HR; Start 11/16/18 at 16:00; Stop 11/21/18 at 15:59 Enoxaparin Sodium (Lovenox) 30 mg DAILY SC Last administered on 11/19/18 10:11; Admin Dose 30 MG; Start 11/16/18 at 16:00 Insulin Aspart (Novolog Insulin Pen) NOVOLOG *CUSTOM* ALGORITHM Q6 SC Last administered on 11/17/18 23:46; Admin Dose 1 UNIT; Start 11/17/18 at 12:00 Linagliptin (Tradjenta) 5 mg DAILY PO Last administered on 11/19/18 09:45; Admin Dose 5 MG; Start 11/18/18 at 09:00 ANGELES HO Nov 19, 2018 11:44
--- NOTE | 2018-11-19 13:37 | CONS ---
Consult Date/Type/Reason Admit Date/Time Oct 09, 2018 at 12:16 Initial Consult Date 10/12/18 Type of Consultation: Pulm/CCM Requesting Provider: NOLA VIDAL MD Date/Time of Note DATE: 11/19/18 TIME: 13:33 Subjective No events. Full DNR status noted. Objective Vitals Vital Signs Date Temp Pulse Resp B/P (MAP) Pulse Ox O2 O2 Flow FiO2 Time Delivery Rate 11/19/18 104 12:00 11/19/18 27 108/70 98 Mechanical 07:00 (83) Ventilator 11/19/18 90 05:57 11/19/18 98.5 04:00 Intake and Output 11/18/18 11/18/18 11/19/18 1515:00 23:00 07:00 IntakeIntake Total 1473.0 ml 743.00 ml 332.0 ml OutputOutput Total 750 ml 440 ml BalanceBalance 1473.0 ml -7.00 ml -108.0 ml Exam HEENT: Neck supple; no JVD; no LAD; + trach site clean CVS: RRR, S1 and S2 CHEST: Coarse BS b/l ABD: Soft, NT, + BS EXT: No c/c; tr edema Results/Medications Result Diagram: 11/19/18 0512 11/19/18 0512 Results 24 hrs Laboratory Tests Test 11/18/18 13:36 11/18/18 18:23 11/18/18 23:42 11/19/18 05:12 Bedside Glucose 101 116 120 White Blood Count 15.4 H Red Blood Count 2.58 L Hemoglobin 7.0 L Hematocrit 24.5 L Mean Corpuscular 95.0 Volume Mean Corpuscular 27.1 L Hemoglobin Mean Corpuscular 28.6 L Hemoglobin Concent Red Cell Distribution 16.6 H Width Platelet Count 434 H Mean Platelet Volume 11.1 H Immature Granulocytes 4.000 H % Neutrophils % 70.1 Lymphocytes % 7.1 L Monocytes % 8.3 Eosinophils % 9.7 H Basophils % 0.8 Nucleated Red Blood 0.0 Cells % Immature Granulocytes 0.620 H # Neutrophils # 10.8 H Lymphocytes # 1.1 Monocytes # 1.3 H Eosinophils # 1.5 H Basophils # 0.1 Nucleated Red Blood 0.0 Cells # Sodium Level 142 Potassium Level 4.2 Chloride Level 101 Carbon Dioxide Level 38 H Anion Gap 3 L Blood Urea Nitrogen 29 H Creatinine 0.46 L Est Glomerular > 60 Filtrat Rate mL/min Glucose Level 102 Calcium Level 8.9 Phosphorus Level 3.4 Magnesium Level 2.1 Test 11/19/18 05:32 11/19/18 10:37 11/19/18 12:03 Bedside Glucose 122 116 Lab Scanned Report REFERENCE LAB Medications Current Medications Acetaminophen (Tylenol Liquid) 650 mg Q4H PRN GTB MILD PAIN(1-3)OR ELEVATED TEMP Last administered on 11/16/18 12:03; Admin Dose 650 MG; Start 10/09/18 at 14:00 Al Hydrox/Mg Hydrox/Simethicone (Mag-Al Plus) 15 ml Q6H PRN PO GASTROINTESTINAL UPSET Last administered on 10/17/18 13:18; Admin Dose 15 ML; Start 10/09/18 at 14:00 Eye Lubricant (Artificial Tears Oph) 1 drop Q6H PRN BOTH EYES DRY EYES Last administered on 11/03/18 09:33; Admin Dose 1 DROP; Start 10/09/18 at 14:00 Bisacodyl (Dulcolax Supp) 10 mg DAILY PRN [place] CONSTIPATION; Start 10/09/18 at 14:00 Clonidine (Catapres) 0.1 mg DAILY PRN GTB ELEVATED BLOOD PRESSURE; Start 10/09/18 at 14:00 Diltiazem HCl (Cardizem Iv) 5 mg Q4 PRN IV ELEVATED HEART RATE Last administered on 11/06/18 18:47; Admin Dose 5 MG; Start 10/09/18 at 14:00 Diphenhydramine HCl (Benadryl Liquid Cup) 25 mg Q6 PRN GTB ITCHING Last administered on 10/22/18 20:25; Admin Dose 25 MG; Start 10/09/18 at 14:00 Duloxetine HCl (Cymbalta) 30 mg DAILY PO Last administered on 11/19/18 09:47; Admin Dose 30 MG; Start 10/10/18 at 09:00 Gabapentin (Neurontin Liquid) 400 mg Q8 GTB Last administered on 11/19/18 05:10; Admin Dose 400 MG; Start 10/09/18 at 15:30 Hydralazine HCl (Apresoline) 10 mg Q4H PRN IV ELEVATED BLOOD PRESSURE; Start 10/09/18 at 14:00 Hydroxychloroquine Sulfate (Plaquenil) 200 mg BID PO Last administered on 11/19/18 09:45; Admin Dose 200 MG; Start 10/09/18 at 21:00 Lactobacillus Acidophilus (Florajen3 Capsule) 1 each BID GTB Last administered on 11/19/18 09:47; Admin Dose 1 EACH; Start 10/09/18 at 21:00 Lansoprazole (Prevacid) 30 mg BID@18 GTB Last administered on 11/19/18 05:10; Admin Dose 30 MG; Start 10/09/18 at 18:00 Levetiracetam (Keppra Liquid) 500 mg BID GTB Last administered on 11/19/18 09:47; Admin Dose 500 MG; Start 10/09/18 at 21:00 Magnesium Oxide (Mag-Ox 400) 400 mg BID GTB Last administered on 11/19/18 09:45; Admin Dose 400 MG; Start 10/09/18 at 21:00 Metoclopramide HCl (Reglan) 10 mg TID IV Last administered on 11/18/18 21:17; Admin Dose 10 MG; Start 10/09/18 at 21:00 Miconazole Nitrate (Miconazole 2% Cr) 1 applic BID TOP Last administered on 11/19/18 09:48; Admin Dose 1 APPLIC; Start 10/09/18 at 21:00 Miconazole Nitrate (Miconazole 2% Cr) 1 applic Q12 PRN TOP rash; Start 10/09/18 at 14:00 Ondansetron HCl (Zofran Inj) 4 mg Q4H PRN IV NAUSEA AND/OR VOMITING Last administered on 10/19/18 16:37; Admin Dose 4 MG; Start 10/09/18 at 14:00 Polyethylene Glycol (Miralax) 17 gm DAILY PRN GTB CONSTIPATION; Start 10/09/18 at 14:00 Senna (Senokot) 2 tab Q8 PRN PO CONSTIPATION; Start 10/09/18 at 14:00 Trimethoprim/ Sulfamethoxazole (Bactrim Susp) 40 ml DAILY GTB Last administered on 11/19/18 09:46; Admin Dose 40 ML; Start 10/10/18 at 09:00 Zolpidem Tartrate (Ambien) 5 mg HS PRN PO INSOMNIA Last administered on 11/03/18 01:16; Admin Dose 5 MG; Start 10/09/18 at 14:00 Miscellaneous Information 1 ea NOTE XX ; Start 10/09/18 at 15:00 Glucose (Glutose) 15 gm Q15M PRN PO DECREASED GLUCOSE; Start 10/09/18 at 15:00 Glucose (Glutose) 22.5 gm Q15M PRN PO DECREASED GLUCOSE; Start 10/09/18 at 15:00 Dextrose (D50w Syringe) 25 ml Q15M PRN IV DECREASED GLUCOSE; Start 10/09/18 at 15:00 Dextrose (D50w Syringe) 50 ml Q15M PRN IV DECREASED GLUCOSE; Start 10/09/18 at 15:00 Glucagon (Glucagen) 1 mg Q15M PRN IM DECREASED GLUCOSE; Start 10/09/18 at 15:00 Glucose (Glutose) 15 gm Q15M PRN BUCCAL DECREASED GLUCOSE; Start 10/09/18 at 15:00 Albuterol (Ventolin Hfa) 4 puff Q6H RESP THERAPY INH Last administered on 11/19/18 07:54; Admin Dose 4 PUFF; Start 10/10/18 at 02:00 Ipratropium [place] (Atrovent Hfa) 4 puff Q6H RESP THERAPY INH Last administered on 11/19/18 07:54; Admin Dose 4 PUFF; Start 10/10/18 at 02:00 Quetiapine Fumarate (Seroquel) 100 mg BID GTB Last administered on 11/19/18 09:46; Admin Dose 100 MG; Start 10/21/18 at 21:00 Calcium Carbonate (Ca Carbonate) 1,250 mg QID GTB Last administered on 11/19/18 09:47; Admin Dose 1,250 MG; Start 10/24/18 at 13:00 Metoprolol Tartrate (Lopressor) 5 mg Q4H PRN IV HR>110 Hold SBP<100 Last administered on 11/11/18at 18:31; Admin Dose 5 MG; Start 10/28/18 at 12:30 IV Flush (NS 10 ml) 10 ml PRN PRN IV IV PROTOCOL; Start 11/01/18 at 16:30 Midodrine (Proamatine) 5 mg TID@,, GTB Last administered on 11/08/18 12:53; Admin Dose 5 MG; Start 11/03/18 at 09:00; Status Hold Guaifenesin (Robitussin Liquid Cup) 100 mg Q4H PRN PO COUGH Last administered on 11/13/18 17:58; Admin Dose 100 MG; Start 11/03/18 at 12:00 Calcitriol (Rocaltrol) 1.5 mcg BID PO Last administered on 11/19/18 09:45; Admin Dose 1.5 MCG; Start 11/07/18 at 21:00 Lorazepam (Ativan) 1 mg Q4 GTB Last administered on 11/19/18 09:46; Admin Dose 1 MG; Start 11/09/18 at 14:00 Carvedilol (Coreg) 6.25 mg BID PO Last administered on 11/19/18 09:46; Admin Dose 6.25 MG; Start 11/09/18 at 21:00 Benazepril HCl (Lotensin) 10 mg DAILY PO Last administered on 11/19/18 09:46; Admin Dose 10 MG; Start 11/10/18 at 09:00 Digoxin (Digoxin) 0.25 mg DAILY@13 PO Last administered on 11/16/18 12:04; Admin Dose 0.25 MG; Start 11/11/18 at 13:00; Status Hold Furosemide (Lasix) 20 mg DAILY IV Last administered on 11/15/18 08:58; Admin Dose 20 MG; Start 11/10/18 at 12:30; Status Hold Hydromorphone HCl (Dilaudid) 3 mg Q4H PRN PO MODERATE PAIN LEVEL 7-10 Last administered on 11/17/18 01:47; Admin Dose 3 MG; Start 11/10/18 at 22:00 Cefepime HCl 50 ml @ 100 mls/hr Q12 IVPB Last administered on 11/19/18 09:46; Admin Dose 100 MLS/HR; Start 11/10/18 at 23:30 Fentanyl 100 ml @ 2.5 mls/hr TITRATE IV Last administered on 11/17/18 23:59; Admin Dose 3.5 MLS/HR; Start 11/14/18 at 09:00 Ascorbic Acid (Vitamin C) 250 mg DAILY GTB Last administered on 11/19/18 09:44; Admin Dose 250 MG; Start 11/15/18 at 09:00; Stop 11/29/18 at 09:00 Zinc Sulfate (Zinc Sulfate) 220 mg DAILY GTB Last administered on 11/19/18 09:47; Admin Dose 220 MG; Start 11/15/18 at 09:00; Stop 11/29/18 at 09:00 Hydrocortisone (Cortef) 15 mg HS PEG Last administered on 11/18/18 21:17; Admin Dose 15 MG; Start 11/15/18 at 21:00 Hydrocortisone (Cortef) 15 mg QAM PEG Last administered on 11/19/18 09:44; Adm in Dose 15 MG; Start 11/16/18 at 09:00 Hydrocortisone (Cortef) 15 mg AC DINNER PEG Last administered on 11/18/18 18:25; Admin Dose 15 MG; Start 11/15/18 at 17:05 Acetazolamide (Diamox) 500 mg DAILY IV Last administered on 11/19/18 09:47; Admin Dose 500 MG; Start 11/16/18 at 09:30 Daptomycin 185 mg/ Sodium Chloride 100 ml @ 200 mls/hr Q24H IVPB Last administered on 11/18/18 15:49; Admin Dose 200 MLS/HR; Start 11/16/18 at 16:00; Stop 11/21/18 at 15:59 Enoxaparin Sodium (Lovenox) 30 mg DAILY SC Last administered on 11/19/18 10:11; Admin Dose 30 MG; Start 11/16/18 at 16:00 Insulin Aspart (Novolog Insulin Pen) NOVOLOG *CUSTOM* ALGORITHM Q6 SC Last administered on 11/17/18 23:46; Admin Dose 1 UNIT; Start 11/17/18 at 12:00 Linagliptin (Tradjenta) 5 mg DAILY PO Last administered on 11/19/18 09:45; Admin Dose 5 MG; Start 11/18/18 at 09:00 Assessment/Plan Assessment/Plan (Daily) IMP: 1. Acute on chronic hypoxemic respiratory failure with underlying acute respira tory distress syndrome. 2. History of HSV esophagitis. 3. Chronic sepsis. 4. History of rheumatoid arthritis. 5. C-spine disease with functional quadriplegia. 6. Dysphagia with G-tube 7. Anemia RECS: 1. Continue current ventilatory support 2. DNR/DNI status noted 3. Plan would be to transition to comfort measures on Wednesday Palliative care recommendations Critical care time 40 minute YOLETTE REYNOLDS MD Nov 19, 2018 13:37
--- NOTE | 2018-11-19 13:46 | CONS ---
Assessment/Plan Cardiology Heart Failure Type: Acute on Chronic Heart Failure Type: Systolic Assessment/Plan Hospital Course (Demo Recall) IMPRESSION: 1. Tachycardia- S tach. Ongoing Likley due to anxiety/infection/cardiomyopathy, multifactorial. Overall improved today 2. Hypotension-now off pressors with HTN but labile 3. Abnormal electrocardiogram at baseline. 4. Chronic respiratory failure, status post tracheostomy.-weaning vent support 5. Dysphagia, status post G-tube. 6. Quadriplegia. 7. Renal insufficiency, on steroids. 8. Chronic obstructive pulmonary disease. 9. Rheumatoid arthritis. 10. Chronic kidney disease. 11. Diabetes mellitus. 12.Adrenal insufficiency 14. cardiomyopathy-EF 35-40% by echo this admit 15. anemia Recc -ICU -Ongoing Vent support with inability to wean from High percentage FI02 -Continue abx's and f/u cx data -continue steroids -Follow volume status -Continue coreg and ACEI as tolerated -started on fentanyl drip for patient comfort/tachypnea -Holding digoxin given elevated level and will recheck -Lasix held currently -Now DNR Consultation Date/Type/Reason Admit Date/Time Oct 09, 2018 at 12:16 Initial Consult Date 10/09/18 Type of Consult Cardiology Reason for Consultation tachycardia/cardiomyopathy Requesting Provider: NOLA VIDAL MD Date/Time of Note DATE: 11/19/18 TIME: 13:44 Exam/Review of Systems Vital Signs Vitals Vital Signs Date Temp Pulse Resp B/P (MAP) Pulse Ox O2 O2 Flow FiO2 Time Delivery Rate 11/19/18 104 12:00 11/19/18 27 108/70 98 Mechanical 07:00 (83) Ventilator 11/19/18 90 05:57 11/19/18 98.5 04:00 Intake and Output 11/18/18 11/18/18 11/19/18 1515:00 23:00 07:00 IntakeIntake Total 1473.0 ml 743.00 ml 332.0 ml OutputOutput Total 750 ml 440 ml BalanceBalance 1473.0 ml -7.00 ml -108.0 ml Exam Exam Review of Systems: CONSTITUTIONAL: No fevers, chills. PULMONARY: No sob CARDIOVASCULAR: No chest pain/palpitations GASTROINTESTINAL: No nausea/vomiting. GENITOURINARY: No hematuria/dysuria. MUSCULOSKELETAL: No myagias/arthalgias. PSYCHIATRIC: The patient denies depression. NEUROLOGIC: No weakness Constitutional: other (sleeping) Psych: no complaints Head: normocephalic ENMT: mucosa pink and moist Neck: supple, jvd (9 cm water) Respiratory: diminished breath sounds Cardiovascular: other (tachycardic) Gastrointestinal: soft, non-tender Musculoskeletal: muscle tone (normal) Extremities: edema (none) Neurological: other (No focaol deficits) Labs Result Diagram: 11/19/18 0512 11/19/18 0512 Results 24hrs Laboratory Tests Test 11/18/18 18:23 11/18/18 23:42 11/19/18 05:12 11/19/18 05:32 Bedside Glucose 116 120 122 White Blood Count 15.4 H Red Blood Count 2.58 L Hemoglobin 7.0 L Hematocrit 24.5 L Mean Corpuscular 95.0 Volume Mean Corpuscular 27.1 L Hemoglobin Mean Corpuscular 28.6 L Hemoglobin Concent Red Cell Distribution 16.6 H Width Platelet Count 434 H Mean Platelet Volume 11.1 H Immature Granulocytes 4.000 H % Neutrophils % 70.1 Lymphocytes % 7.1 L Monocytes % 8.3 Eosinophils % 9.7 H Basophils % 0.8 Nucleated Red Blood 0.0 Cells % Immature Granulocytes 0.620 H # Neutrophils # 10.8 H Lymphocytes # 1.1 Monocytes # 1.3 H Eosinophils # 1.5 H Basophils # 0.1 Nucleated Red Blood 0.0 Cells # Sodium Level 142 Potassium Level 4.2 Chloride Level 101 Carbon Dioxide Level 38 H Anion Gap 3 L Blood Urea Nitrogen 29 H Creatinine 0.46 L Est Glomerular > 60 Filtrat Rate mL/min Glucose Level 102 Calcium Level 8.9 Phosphorus Level 3.4 Magnesium Level 2.1 Test 11/19/18 10:37 11/19/18 12:03 Lab Scanned Report REFERENCE LAB Bedside Glucose 116 Medications Medications Current Medications Acetaminophen (Tylenol Liquid) 650 mg Q4H PRN GTB MILD PAIN(1-3)OR ELEVATED TEMP Last administered on 11/16/18 12:03; Admin Dose 650 MG; Start 10/09/18 at 14:00 Al Hydrox/Mg Hydrox/Simethicone (Mag-Al Plus) 15 ml Q6H PRN PO GASTROINTESTINAL UPSET Last administered on 10/17/18 13:18; Admin Dose 15 ML; Start 10/09/18 at 14:00 Eye Lubricant (Artificial Tears Oph) 1 drop Q6H PRN BOTH EYES DRY EYES Last adm inistered on 11/03/18 09:33; Admin Dose 1 DROP; Start 10/09/18 at 14:00 Bisacodyl (Dulcolax Supp) 10 mg DAILY PRN [place] CONSTIPATION; Start 10/09/18 at 14:00 Clonidine (Catapres) 0.1 mg DAILY PRN GTB ELEVATED BLOOD PRESSURE; Start 10/09/18 at 14:00 Diltiazem HCl (Cardizem Iv) 5 mg Q4 PRN IV ELEVATED HEART RATE Last administered on 11/06/18 18:47; Admin Dose 5 MG; Start 10/09/18 at 14:00 Diphenhydramine HCl (Benadryl Liquid Cup) 25 mg Q6 PRN GTB ITCHING Last administered on 10/22/18 20:25; Admin Dose 25 MG; Start 10/09/18 at 14:00 Duloxetine HCl (Cymbalta) 30 mg DAILY PO Last administered on 11/19/18 09:47; Admin Dose 30 MG; Start 10/10/18 at 09:00 Gabapentin (Neurontin Liquid) 400 mg Q8 GTB Last administered on 11/19/18 05:10; Admin Dose 400 MG; Start 10/09/18 at 15:30 Hydralazine HCl (Apresoline) 10 mg Q4H PRN IV ELEVATED BLOOD PRESSURE; Start 10/09/18 at 14:00 Hydroxychloroquine Sulfate (Plaquenil) 200 mg BID PO Last administered on 11/19/18 09:45; Admin Dose 200 MG; Start 10/09/18 at 21:00 Lactobacillus Acidophilus (Florajen3 Capsule) 1 each BID GTB Last administered on 11/19/18 09:47; Admin Dose 1 EACH; Start 10/09/18 at 21:00 Lansoprazole (Prevacid) 30 mg BID@,18 GTB Last administered on 11/19/18 05:10; Admin Dose 30 MG; Start 10/09/18 at 18:00 Levetiracetam (Keppra Liquid) 500 mg BID GTB Last administered on 11/19/18 09:47; Admin Dose 500 MG; Start 10/09/18 at 21:00 Magnesium Oxide (Mag-Ox 400) 400 mg BID GTB Last administered on 11/19/18at 09:45; Admin Dose 400 MG; Start 10/09/18 at 21:00 Metoclopramide HCl (Reglan) 10 mg TID IV Last administered on 11/18/18at 21:17; Admin Dose 10 MG; Start 10/09/18 at 21:00 Miconazole Nitrate (Miconazole 2% Cr) 1 applic BID TOP Last administered on 11/19/18at 09:48; Admin Dose 1 APPLIC; Start 10/09/18 at 21:00 Miconazole Nitrate (Miconazole 2% Cr) 1 applic Q12 PRN TOP rash; Start 10/09/18 at 14:00 Ondansetron HCl (Zofran Inj) 4 mg Q4H PRN IV NAUSEA AND/OR VOMITING Last administered on 10/19/18at 16:37; Admin Dose 4 MG; Start 10/09/18 at 14:00 Polyethylene Glycol (Miralax) 17 gm DAILY PRN GTB CONSTIPATION; Start 10/09/18 at 14:00 Senna (Senokot) 2 tab Q8 PRN PO CONSTIPATION; Start 10/09/18 at 14:00 Trimethoprim/ Sulfamethoxazole (Bactrim Susp) 40 ml DAILY GTB Last administered on 11/19/18at 09:46; Admin Dose 40 ML; Start 10/10/18 at 09:00 Zolpidem Tartrate (Ambien) 5 mg HS PRN PO INSOMNIA Last administered on 11/03/18at 01:16; Admin Dose 5 MG; Start 10/09/18 at 14:00 Miscellaneous Information 1 ea NOTE XX ; Start 10/09/18 at 15:00 Glucose (Glutose) 15 gm Q15M PRN PO DECREASED GLUCOSE; Start 10/09/18 at 15:00 Glucose (Glutose) 22.5 gm Q15M PRN PO DECREASED GLUCOSE; Start 10/09/18 at 15:00 Dextrose (D50w Syringe) 25 ml Q15M PRN IV DECREASED GLUCOSE; Start 10/09/18 at 15:00 Dextrose (D50w Syringe) 50 ml Q15M PRN IV DECREASED GLUCOSE; Start 10/09/18 at 15:00 Glucagon (Glucagen) 1 mg Q15M PRN IM DECREASED GLUCOSE; Start 10/09/18 at 15:00 Glucose (Glutose) 15 gm Q15M PRN BUCCAL DECREASED GLUCOSE; Start 10/09/18 at 15:00 Albuterol (Ventolin Hfa) 4 puff Q6H RESP THERAPY INH Last administered on 11/19/18 13:41; Admin Dose 4 PUFF; Start 10/10/18 at 02:00 Ipratropium [place] (Atrovent Hfa) 4 puff Q6H RESP THERAPY INH Last administered on 11/19/18 13:42; Admin Dose 4 PUFF; Start 10/10/18 at 02:00 Quetiapine Fumarate (Seroquel) 100 mg BID GTB Last administered on 11/19/18 09:46; Admin Dose 100 MG; Start 10/21/18 at 21:00 Calcium Carbonate (Ca Carbonate) 1,250 mg QID GTB Last administered on 11/19/18 09:47; Admin Dose 1,250 MG; Start 10/24/18 at 13:00 Metoprolol Tartrate (Lopressor) 5 mg Q4H PRN IV HR>110 Hold SBP<100 Last administered on 11/11/18 18:31; Admin Dose 5 MG; Start 10/28/18 at 12:30 IV Flush (NS 10 ml) 10 ml PRN PRN IV IV PROTOCOL; Start 11/01/18 at 16:30 Midodrine (Proamatine) 5 mg TID@,,17 GTB Last administered on 11/08/18 12:53; Admin Dose 5 MG; Start 11/03/18 at 09:00; Status Hold Guaifenesin (Robitussin Liquid Cup) 100 mg Q4H PRN PO COUGH Last administered on 11/13/18 17:58; Admin Dose 100 MG; Start 11/03/18 at 12:00 Calcitriol (Rocaltrol) 1.5 mcg BID PO Last administered on 11/19/18 09:45; Admin Dose 1.5 MCG; Start 11/07/18 at 21:00 Lorazepam (Ativan) 1 mg Q4 GTB Last administered on 11/19/18 09:46; Admin Dose 1 MG; Start 11/09/18 at 14:00 Carvedilol (Coreg) 6.25 mg BID PO Last administered on 11/19/18 09:46; Admin Dose 6.25 MG; Start 11/09/18 at 21:00 Benazepril HCl (Lotensin) 10 mg DAILY PO Last administered on 11/19/18 09:46; Admin Dose 10 MG; Start 11/10/18 at 09:00 Digoxin (Digoxin) 0.25 mg DAILY@13 PO Last administered on 11/16/18 12:04; Admin Dose 0.25 MG; Start 11/11/18 at 13:00; Status Hold Furosemide (Lasix) 20 mg DAILY IV Last administered on 11/15/18 08:58; Admin Dose 20 MG; Start 11/10/18 at 12:30; Status Hold Hydromorphone HCl (Dilaudid) 3 mg Q4H PRN PO MODERATE PAIN LEVEL 7-10 Last administered on 11/17/18 01:47; Admin Dose 3 MG; Start 11/10/18 at 22:00 Cefepime HCl 50 ml @ 100 mls/hr Q12 IVPB Last administered on 11/19/18 09:46; Admin Dose 100 MLS/HR; Start 11/10/18 at 23:30 Fentanyl 100 ml @ 2.5 mls/hr TITRATE IV Last administered on 11/17/18 23:59; Admin Dose 3.5 MLS/HR; Start 11/14/18 at 09:00 Ascorbic Acid (Vitamin C) 250 mg DAILY GTB Last administered on 11/19/18 09:44; Admin Dose 250 MG; Start 11/15/18 at 09:00; Stop 11/29/18 at 09:00 Zinc Sulfate (Zinc Sulfate) 220 mg DAILY GTB Last administered on 11/19/18 09:47; Admin Dose 220 MG; Start 11/15/18 at 09:00; Stop 11/29/18 at 09:00 Hydrocortisone (Cortef) 15 mg HS PEG Last administered on 11/18/18 21:17; Admin Dose 15 MG; Start 11/15/18 at 21:00 Hydrocortisone (Cortef) 15 mg QAM PEG Last administered on 11/19/18 09:44; Admin Dose 15 MG; Start 11/16/18 at 09:00 Hydrocortisone (Cortef) 15 mg AC DINNER PEG Last administered on 11/18/18 18:25; Admin Dose 15 MG; Start 11/15/18 at 17:05 Acetazolamide (Diamox) 500 mg DAILY IV Last administered on 11/19/18 09:47; Admin Dose 500 MG; Start 11/16/18 at 09:30 Daptomycin 185 mg/ Sodium Chloride 100 ml @ 200 mls/hr Q24H IVPB Last administered on 11/18/18at 15:49; Admin Dose 200 MLS/HR; Start 11/16/18 at 16:00; Stop 11/21/18 at 15:59 Enoxaparin Sodium (Lovenox) 30 mg DAILY SC Last administered on 11/19/18at 10:11; Admin Dose 30 MG; Start 11/16/18 at 16:00 Insulin Aspart (Novolog Insulin Pen) NOVOLOG *CUSTOM* ALGORITHM Q6 SC Last administered on 11/17/18at 23:46; Admin Dose 1 UNIT; Start 11/17/18 at 12:00 Linagliptin (Tradjenta) 5 mg DAILY PO Last administered on 11/19/18at 09:45; Admin Dose 5 MG; Start 11/18/18 at 09:00 BRISA HAQUE Nov 19, 2018 13:46
[2018-11-19] MEDS: DAPTOMYCIN IVPB SCH (16:16)
[2018-11-19] MEDS: SOD CHLORIDE 0.9% IVPB SCH (16:16)
[2018-11-19] MEDS: FENTAnyl (DRIP) 1000 mcg/100mL 100 ML IV SCH (18:54)
--- NOTE | 2018-11-19 21:15 | CONS ---
Assessment/Plan Assessment/Plan Hospital Course (Demo Recall) # sepsis, respiratory - recurrent sepsis probably due to aspiration pneumonia, HCAP, UTI - s/p recurrent sepsis due to aspiration pneumonia, HCAP - possible aspiration pneumonia, recurrent pneumonia due to citrobacter - acute on chronic hypoxic and hypercarbic respiratory failure - intermittent leukocytosis likely due to steroid margination and sepsis - h/o tracheostomy on 08/26/2018 - h/o "Increased mild left apical pneumothorax" per CXR on 09/19/2018; no pneumothorax mentioned on subsequent CXR - h/o pneumomediastinum - h/o VAT on 08/11/2018 - h/o asthma/COPD exacerbation - h/o acute tracheobronchitis - h/o MAC infection but CT chest did not demonstrate features suggestive of this per chart review - h/o HCAP due to citrobacter, based on resp culture on 09/13/2018 - h/o aspergillus in resp culture according to a note by Dr. Lopez, a pulmonlogist at [facility] on 07/25/2018 - h/o elevated 1,3 [id number] level = 232 on 08/06/2018 - h/o MSSA septicemia # GI - diarrhea, C diff on 10/09/2018 and 11/11/2018 was negative. 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 x 21 days from 08/26/2018 - h/o EGD, esophageal biopsy showed esophageal squamous mucosa showing acute inflammation, granulation tissue, and ulceration consistent with ulcerative esophagitis, rare multinucleated cells with morphology suggestive of vial cytopathic changes, No cardiac mucosa, intestinal metaplasia, dysplasia, or malignancy defined - GERD - PUD # renal/ - UTI due to enterococci 11/15/2018 - Hypokalemia, recurrent - CKD 2 - BPH # cardiac - tachycardia, persistent - ACD - HTN # endo - T2DM - Hgb A1c 7.2% - secondary adrenal insufficiency; steroid dependent - HLD - Hypoparathyroidism - Hypercalcemia - Pamidronate was ordered # neuro - toxic metabolic encephalopathy - cervical myopathy - severe cervical spinal cord stenosis with cord compression from C3-C5, s/p laminectomy in ~03/2018 - chronic pain syndrome - functional quadriplegia - seizure d/o # other chronic conditions - RA with chronic steroid dependence - Immunocompromised status - Fibromyalgia - DDD - H/o multiple rib fracture - Pt completed: meropenem (09/25/2018-10/02/2018), vancomycin (09/25/18-09/28/18), pip/tazo (10/09/2018-10/15/2018), cefepime (restarted 11/10/2018-11/18/2018) - so far: pneumocystis antigen negative, AFB smear negative and final culture x3 pending, quantiferon TB gold negative, coccidioides serology negative, 1,0-mmzh-N-glucan negative recommendations: - pending results: blood cultures x2, procalcitonin, - continue daptomycin (11/16/2018-11/21/2018 planned) 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 Pt cannot take linezolid due to its interaction with seroquel - continue Bactrim for pneumocystis PPX Management d/w RN OR LPNARIANNA Evans the critical care time that I took to care for this Pt today was from 2029 to 2099 Consultation Date/Type/Reason Admit Date/Time Oct 09, 2018 at 12:16 Initial Consult Date 10/09/18 Type of Consult ID Requesting Provider: NOLA VIDAL MD Date/Time of Note DATE: 11/19/18 TIME: 21:12 24 HR Interval Summary Subjective hx not possible: pt non-verbal, pt critical, pt critical status Exam/Review of Systems Exam Vitals Vital Signs Date Temp Pulse Resp B/P (MAP) Pulse Ox O2 O2 Flow FiO2 Time Delivery Rate 11/19/18 98.3 105 20 109/67 98 Mechanical 20:00 (81) Ventilator 11/19/18 90 20:00 Intake and Output 11/18/18 11/18/18 11/19/18 1515:00 23:00 07:00 IntakeIntake Total 1473.0 ml 743.00 ml 332.0 ml OutputOutput Total 750 ml 440 ml BalanceBalance 1473.0 ml -7.00 ml -108.0 ml Constitutional: non-verbal, frail Psych: confusion Head: normocephalic, atraumatic Eyes: other (periorbital swelling b/l) ENMT: nl external ears & nose, nl nasal mucosa & septum Neck: other (trach) Respiratory: diminished breath sounds Cardiovascular: regular rate and rhythm, nl pulses Gastrointestinal: soft, non-tender, other (GT, rectal tube); No distended Genitourinary - Male: other (FC) Musculoskeletal: No swelling Extremities: normal pulses; No edema Neurological: lethargic Skin: rash or lesions (stage II decub of sacrum) Results Result Diagram: 11/19/1812 11/19/18 0512 Results 24hrs Laboratory Tests Test 11/18/18 23:42 11/19/18 05:12 11/19/18 05:32 11/19/18 10:37 Bedside Glucose 120 122 White Blood Count 15.4 H Red Blood Count 2.58 L Hemoglobin 7.0 L Hematocrit 24.5 L Mean Corpuscular 95.0 Volume Mean Corpuscular 27.1 L Hemoglobin Mean Corpuscular 28.6 L Hemoglobin Concent Red Cell Distribution 16.6 H Width Platelet Count 434 H Mean Platelet Volume 11.1 H Immature Granulocytes 4.000 H % Neutrophils % 70.1 Lymphocytes % 7.1 L Monocytes % 8.3 Eosinophils % 9.7 H Basophils % 0.8 Nucleated Red Blood 0.0 Cells % Immature Granulocytes 0.620 H # Neutrophils # 10.8 H Lymphocytes # 1.1 Monocytes # 1.3 H Eosinophils # 1.5 H Basophils # 0.1 Nucleated Red Blood 0.0 Cells # Sodium Level 142 Potassium Level 4.2 Chloride Level 101 Carbon Dioxide Level 38 H Anion Gap 3 L Blood Urea Nitrogen 29 H Creatinine 0.46 L Est Glomerular > 60 Filtrat Rate mL/min Glucose Level 102 Calcium Level 8.9 Phosphorus Level 3.4 Magnesium Level 2.1 Lab Scanned Report REFERENCE LAB Test 11/19/18 12:03 11/19/18 18:41 Bedside Glucose 116 142 Medications Medication Current Medications Acetaminophen (Tylenol Liquid) 650 mg Q4H PRN GTB MILD PAIN(1-3)OR ELEVATED TEMP Last administered on 11/16/18 12:03; Admin Dose 650 MG; Start 10/09/18 at 14:00 Al Hydrox/Mg Hydrox/Simethicone (Mag-Al Plus) 15 ml Q6H PRN PO GASTROINTESTINAL UPSET Last administered on 10/17/18 13:18; Admin Dose 15 ML; Start 10/09/18 at 14:00 Eye Lubricant (Artificial Tears Oph) 1 drop Q6H PRN BOTH EYES DRY EYES Last administered on 11/03/18 09:33; Admin Dose 1 DROP; Start 10/09/18 at 14:00 Bisacodyl (Dulcolax Supp) 10 mg DAILY PRN [place] CONSTIPATION; Start 10/09/18 at 14:00 Clonidine (Catapres) 0.1 mg DAILY PRN GTB ELEVATED BLOOD PRESSURE; Start 10/09/18 at 14:00 Diltiazem HCl (Cardizem Iv) 5 mg Q4 PRN IV ELEVATED HEART RATE Last administered on 11/06/18 18:47; Admin Dose 5 MG; Start 10/09/18 at 14:00 Diphenhydramine HCl (Benadryl Liquid Cup) 25 mg Q6 PRN GTB ITCHING Last ad ministered on 10/22/18 20:25; Admin Dose 25 MG; Start 10/09/18 at 14:00 Duloxetine HCl (Cymbalta) 30 mg DAILY PO Last administered on 11/19/18 09:47; Admin Dose 30 MG; Start 10/10/18 at 09:00 Gabapentin (Neurontin Liquid) 400 mg Q8 GTB Last administered on 11/19/18 16:17; Admin Dose 400 MG; Start 10/09/18 at 15:30 Hydralazine HCl (Apresoline) 10 mg Q4H PRN IV ELEVATED BLOOD PRESSURE; Start 10/09/18 at 14:00 Hydroxychloroquine Sulfate (Plaquenil) 200 mg BID PO Last administered on 11/19/18 20:24; Admin Dose 200 MG; Start 10/09/18 at 21:00 Lactobacillus Acidophilus (Florajen3 Capsule) 1 each BID GTB Last administered on 11/19/18 20:24; Admin Dose 1 EACH; Start 10/09/18 at 21:00 Lansoprazole (Prevacid) 30 mg BID@,18 GTB Last administered on 11/19/18 16:17; Admin Dose 30 MG; Start 10/09/18 at 18:00 Levetiracetam (Keppra Liquid) 500 mg BID GTB Last administered on 11/19/18 20:24; Admin Dose 500 MG; Start 10/09/18 at 21:00 Magnesium Oxide (Mag-Ox 400) 400 mg BID GTB Last administered on 11/19/18 20:25; Admin Dose 400 MG; Start 10/09/18 at 21:00 Metoclopramide HCl (Reglan) 10 mg TID IV Last administered on 11/19/18at 20:24; Admin Dose 10 MG; Start 10/09/18 at 21:00 Miconazole Nitrate (Miconazole 2% Cr) 1 applic BID TOP Last administered on 11/19/18at 20:25; Admin Dose 1 APPLIC; Start 10/09/18 at 21:00 Miconazole Nitrate (Miconazole 2% Cr) 1 applic Q12 PRN TOP rash; Start 10/09/18 at 14:00 Ondansetron HCl (Zofran Inj) 4 mg Q4H PRN IV NAUSEA AND/OR VOMITING Last administered on 10/19/18at 16:37; Admin Dose 4 MG; Start 10/09/18 at 14:00 Polyethylene Glycol (Miralax) 17 gm DAILY PRN GTB CONSTIPATION; Start 10/09/18 at 14:00 Senna (Senokot) 2 tab Q8 PRN PO CONSTIPATION; Start 10/09/18 at 14:00 Trimethoprim/ Sulfamethoxazole (Bactrim Susp) 40 ml DAILY GTB Last administered on 11/19/18at 09:46; Admin Dose 40 ML; Start 10/10/18 at 09:00 Zolpidem Tartrate (Ambien) 5 mg HS PRN PO INSOMNIA Last administered on 11/03/18at 01:16; Admin Dose 5 MG; Start 10/09/18 at 14:00 Miscellaneous Information 1 ea NOTE XX ; Start 10/09/18 at 15:00 Glucose (Glutose) 15 gm Q15M PRN PO DECREASED GLUCOSE; Start 10/09/18 at 15:00 Glucose (Glutose) 22.5 gm Q15M PRN PO DECREASED GLUCOSE; Start 10/09/18 at 15:00 Dextrose (D50w Syringe) 25 ml Q15M PRN IV DECREASED GLUCOSE; Start 10/09/18 at 15:00 Dextrose (D50w Syringe) 50 ml Q15M PRN IV DECREASED GLUCOSE; Start 10/09/18 at 15:00 Glucagon (Glucagen) 1 mg Q15M PRN IM DECREASED GLUCOSE; Start 10/09/18 at 15:00 Glucose (Glutose) 15 gm Q15M PRN BUCCAL DECREASED GLUCOSE; Start 10/09/18 at 15:00 Albuterol (Ventolin Hfa) 4 puff Q6H RESP THERAPY INH Last administered on 11/19/18 19:09; Admin Dose 4 PUFF; Start 10/10/18 at 02:00 Ipratropium [place] (Atrovent Hfa) 4 puff Q6H RESP THERAPY INH Last administered on 11/19/18 19:09; Admin Dose 4 PUFF; Start 10/10/18 at 02:00 Quetiapine Fumarate (Seroquel) 100 mg BID GTB Last administered on 11/19/18 20:25; Admin Dose 100 MG; Start 10/21/18 at 21:00 Calcium Carbonate (Ca Carbonate) 1,250 mg QID GTB Last administered on 11/19/18 20:24; Admin Dose 1,250 MG; Start 10/24/18 at 13:00 Metoprolol Tartrate (Lopressor) 5 mg Q4H PRN IV HR>110 Hold SBP<100 Last administered on 11/11/18 18:31; Admin Dose 5 MG; Start 10/28/18 at 12:30 IV Flush (NS 10 ml) 10 ml PRN PRN IV IV PROTOCOL; Start 11/01/18 at 16:30 Midodrine (Proamatine) 5 mg TID@,,17 GTB Last administered on 11/08/18 12: 53; Admin Dose 5 MG; Start 11/03/18 at 09:00; Status Hold Guaifenesin (Robitussin Liquid Cup) 100 mg Q4H PRN PO COUGH Last administered on 11/13/18 17:58; Admin Dose 100 MG; Start 11/03/18 at 12:00 Calcitriol (Rocaltrol) 1.5 mcg BID PO Last administered on 11/19/18 20:24; Admin Dose 1.5 MCG; Start 11/07/18 at 21:00 Lorazepam (Ativan) 1 mg Q4 GTB Last administered on 11/19/18 16:17; Admin Dose 1 MG; Start 11/09/18 at 14:00 Carvedilol (Coreg) 6.25 mg BID PO Last administered on 11/19/18 09:46; Admin Dose 6.25 MG; Start 11/09/18 at 21:00 Benazepril HCl (Lotensin) 10 mg DAILY PO Last administered on 11/19/18 09:46; Admin Dose 10 MG; Start 11/10/18 at 09:00 Digoxin (Digoxin) 0.25 mg DAILY@13 PO Last administered on 11/16/18 12:04; Admin Dose 0.25 MG; Start 11/11/18 at 13:00; Status Hold Furosemide (Lasix) 20 mg DAILY IV Last administered on 11/15/18 08:58; Admin Dose 20 MG; Start 11/10/18 at 12:30; Status Hold Hydromorphone HCl (Dilaudid) 3 mg Q4H PRN PO MODERATE PAIN LEVEL 7-10 Last administered on 11/17/18 01:47; Admin Dose 3 MG; Start 11/10/18 at 22:00 Cefepime HCl 50 ml @ 100 mls/hr Q12 IVPB Last administered on 11/19/18 20:25; Admin Dose 100 MLS/HR; Start 11/10/18 at 23:30 Fentanyl 100 ml @ 2.5 mls/hr TITRATE IV Last administered on 11/19/18 18:54; Admin Dose 2.5 MLS/HR; Start 11/14/18 at 09:00 Ascorbic Acid (Vitamin C) 250 mg DAILY GTB Last administered on 11/19/18 09:44; Admin Dose 250 MG; Start 11/15/18 at 09:00; Stop 11/29/18 at 09:00 Zinc Sulfate (Zinc Sulfate) 220 mg DAILY GTB Last administered on 11/19/18 09:47; Admin Dose 220 MG; Start 11/15/18 at 09:00; Stop 11/29/18 at 09:00 Hydrocortisone (Cortef) 15 mg HS PEG Last administered on 11/19/18 20:24; Admin Dose 15 MG; Start 11/15/18 at 21:00 Hydrocortisone (Cortef) 15 mg QAM PEG Last administered on 11/19/18 09:44; Admin Dose 15 MG; Start 11/16/18 at 09:00 Hydrocortisone (Cortef) 15 mg AC DINNER PEG Last administered on 11/19/18 16:17; Admin Dose 15 MG; Start 11/15/18 at 17:05 Acetazolamide (Diamox) 500 mg DAILY IV Last administered on 4/6/19at 09:47; Admin Dose 500 MG; Start 11/16/18 at 09:30 Daptomycin 185 mg/ Sodium Chloride 100 ml @ 200 mls/hr Q24H IVPB Last administered on 11/19/18at 16:16; Admin Dose 200 MLS/HR; Start 11/16/18 at 16:00; Stop 11/21/18 at 15:59 Enoxaparin Sodium (Lovenox) 30 mg DAILY SC Last administered on 11/19/18at 10:11; Admin Dose 30 MG; Start 11/16/18 at 16:00 Insulin Aspart (Novolog Insulin Pen) NOVOLOG *CUSTOM* ALGORITHM Q6 SC Last administered on 11/17/18at 23:46; Admin Dose 1 UNIT; Start 11/17/18 at 12:00 Linagliptin (Tradjenta) 5 mg DAILY PO Last administered on 11/19/18 09:45; Admin Dose 5 MG; Start 11/18/18 at 09:00 NEMO MARTINEZ M.D. Nov 19, 2018 21:15
[2018-11-20] VITALS (31 sets, daily range): BP systolic 69–139; BP diastolic 37–84; PULSE 0–124; RESP 0–34
[2018-11-20] MEDS: LORAZEPAM 1 MG TAB GTB SCH ×5 (01:00→17:00)
[2018-11-20] MEDS: IPRATROPIUM (HFA) 12.9 GM INHALER INH SCH ×3 (01:34→14:20)
[2018-11-20] MEDS: ALBUTEROL HFA 8 GM INHALER INH SCH ×3 (01:34→14:20)
[2018-11-20] MEDS: LANSOPRAZOLE 30 MG CAP GTB SCH ×2 (05:41→17:22)
[2018-11-20] MEDS: GABAPENTIN (50 MG/ML PO SYG) GTB SCH ×2 (05:41→13:27)
[2018-11-20] MEDS: INSULIN ASPART [NOVOLOG] 3 ML PEN SC SCH ×3 (05:47→17:52)
--- NOTE | 2018-11-20 07:50 | CONS ---
Assessment/Plan Assessment/Plan Assessment/Plan (Daily) Post dated juliette for visit Pts daughter was wed yesterday. I have not spoke to family since that time and suggest not at this time . Since he has deteriorated in the last week Dr Villa asked I speak to pts and have another conversation addressing comfort measures. Possibilities are he may with comfort care since his daughter had her wedding, next family ay now opt for comfort care only and extubation. Or lastly may choose to slowly withdraw care. Ut seems the latter as she has told Dr Hoyt not to restart pressors on 11/19. Will support their decision either way. - Acute on chronic hypoxemic respiratory failure with underlying ARDS, continue ventilatory support. Dr. Villa is following in pulmonology consultation.- Cardiomyopathy with EF 35-40% - Dysphagia. Continue GT feeding. - Functional quadriplegia - Hx of severe cervical spinal cord stenosis with cord compression from C3-C5, s/p laminectomy. - Hx of VAT on 08/11/2018 - DNR status Consultation Date/Type/Reason Admit Date/Time Oct 09, 2018 at 12:16 Initial Consult Date 10/12/18 Requesting Provider: NOLA VIDAL MD Date/Time of Note DATE: 11/20/18 TIME: 07:43 Exam/Review of Systems Exam Vitals Vital Signs Date Temp Pulse Resp B/P (MAP) Pulse Ox O2 O2 Flow FiO2 Time Delivery Rate 11/20/18 117 30 113/81 100 Mechanical 06:00 (92) Ventilator 11/20/18 90 05:00 11/20/18 98.1 04:00 Intake and Output 11/19/18 11/19/18 11/20/18 1515:00 23:00 07:00 IntakeIntake Total 306.775 ml 605.725 ml 436.5 ml OutputOutput Total 700 ml 575 ml BalanceBalance 306.775 ml -94.275 ml -138.5 ml Results Result Diagram: 11/20/18 0423 11/20/18 0423 Results 24hrs Laboratory Tests Test 11/19/18 10:37 11/19/18 12:03 11/19/18 18:41 11/19/18 23:28 Lab Scanned Report REFERENCE LAB Bedside Glucose 116 142 175 Test 11/20/18 04:23 11/20/18 05:40 White Blood Count 15.6 H Red Blood Count 2.56 L Hemoglobin 7.0 L Hematocrit 24.7 L Mean Corpuscular 96.5 Volume Mean Corpuscular 27.3 L Hemoglobin Mean Corpuscular 28.3 L Hemoglobin Concent Red Cell Distribution 16.5 H Width Platelet Count 434 H Mean Platelet Volume 11.4 H Immature Granulocytes 3.500 H % Neutrophils % 72.8 Lymphocytes % 8.5 L Monocytes % 10.5 Eosinophils % 3.9 Basophils % 0.8 Nucleated Red Blood 0.0 Cells % Immature Granulocytes 0.550 H # Neutrophils # 11.3 H Lymphocytes # 1.3 Monocytes # 1.6 H Eosinophils # 0.6 H Basophils # 0.1 Nucleated Red Blood 0.0 Cells # Sodium Level 140 Potassium Level 4.7 Chloride Level 98 Carbon Dioxide Level 39 H Anion Gap 3 L Blood Urea Nitrogen 26 H Creatinine 0.51 L Est Glomerular > 60 Filtrat Rate mL/min Glucose Level 141 Calcium Level 9.2 Total Bilirubin 0.0 L Direct Bilirubin 0.00 Indirect Bilirubin 0.0 Aspartate Amino 25 Transf (AST/SGOT) Alanine 40 Aminotransferase (ALT /SGPT) Alkaline Phosphatase 115 Total Protein 5.5 L Albumin 2.8 L Globulin 2.70 Albumin/Globulin 1.03 Ratio Bedside Glucose 159 Medications Medication Current Medications Acetaminophen (Tylenol Liquid) 650 mg Q4H PRN GTB MILD PAIN(1-3)OR ELEVATED TEMP Last administered on 11/16/18at 12:03; Admin Dose 650 MG; Start 10/09/18 at 14:00 Al Hydrox/Mg Hydrox/Simethicone (Mag-Al Plus) 15 ml Q6H PRN PO GASTROINTESTINAL UPSET Last administered on 10/17/18at 13:18; Admin Dose 15 ML; Start 10/09/18 at 14:00 Eye Lubricant (Artificial Tears Oph) 1 drop Q6H PRN BOTH EYES DRY EYES Last administered on 11/03/18at 09:33; Admin Dose 1 DROP; Start 10/09/18 at 14:00 Bisacodyl (Dulcolax Supp) 10 mg DAILY PRN [place] CONSTIPATION; Start 10/09/18 at 14:00 Clonidine (Catapres) 0.1 mg DAILY PRN GTB ELEVATED BLOOD PRESSURE; Start 10/09/18 at 14:00 Diltiazem HCl (Cardizem Iv) 5 mg Q4 PRN IV ELEVATED HEART RATE Last administere d on 11/06/18 18:47; Admin Dose 5 MG; Start 10/09/18 at 14:00 Diphenhydramine HCl (Benadryl Liquid Cup) 25 mg Q6 PRN GTB ITCHING Last administered on 10/22/18 20:25; Admin Dose 25 MG; Start 10/09/18 at 14:00 Duloxetine HCl (Cymbalta) 30 mg DAILY PO Last administered on 11/19/18 09:47; Admin Dose 30 MG; Start 10/10/18 at 09:00 Gabapentin (Neurontin Liquid) 400 mg Q8 GTB Last administered on 11/20/18 05:41; Admin Dose 400 MG; Start 10/09/18 at 15:30 Hydralazine HCl (Apresoline) 10 mg Q4H PRN IV ELEVATED BLOOD PRESSURE; Start 10/09/18 at 14:00 Hydroxychloroquine Sulfate (Plaquenil) 200 mg BID PO Last administered on 11/19/18 20:24; Admin Dose 200 MG; Start 10/09/18 at 21:00 Lactobacillus Acidophilus (Florajen3 Capsule) 1 each BID GTB Last administered on 11/19/18 20:24; Admin Dose 1 EACH; Start 10/09/18 at 21:00 Lansoprazole (Prevacid) 30 mg BID@,18 GTB Last administered on 11/20/18 05:41; Admin Dose 30 MG; Start 10/09/18 at 18:00 Levetiracetam (Keppra Liquid) 500 mg BID GTB Last administered on 11/19/18 20:24; Admin Dose 500 MG; Start 10/09/18 at 21:00 Magnesium Oxide (Mag-Ox 400) 400 mg BID GTB Last administered on 11/19/18 20:25; Admin Dose 400 MG; Start 10/09/18 at 21:00 Metoclopramide HCl (Reglan) 10 mg TID IV Last administered on 11/19/18 20:24; Admin Dose 10 MG; Start 10/09/18 at 21:00 Miconazole Nitrate (Miconazole 2% Cr) 1 applic BID TOP Last administered on 11/19/18 20:25; Admin Dose 1 APPLIC; Start 10/09/18 at 21:00 Miconazole Nitrate (Miconazole 2% Cr) 1 applic Q12 PRN TOP rash; Start 10/09/18 at 14:00 Ondansetron HCl (Zofran Inj) 4 mg Q4H PRN IV NAUSEA AND/OR VOMITING Last administered on 10/19/18at 16:37; Admin Dose 4 MG; Start 10/09/18 at 14:00 Polyethylene Glycol (Miralax) 17 gm DAILY PRN GTB CONSTIPATION; Start 10/09/18 at 14:00 Senna (Senokot) 2 tab Q8 PRN PO CONSTIPATION; Start 10/09/18 at 14:00 Trimethoprim/ Sulfamethoxazole (Bactrim Susp) 40 ml DAILY GTB Last administered on 11/19/18at 09:46; Admin Dose 40 ML; Start 10/10/18 at 09:00 Zolpidem Tartrate (Ambien) 5 mg HS PRN PO INSOMNIA Last administered on 11/03/18at 01:16; Admin Dose 5 MG; Start 10/09/18 at 14:00 Miscellaneous Information 1 ea NOTE XX ; Start 10/09/18 at 15:00 Glucose (Glutose) 15 gm Q15M PRN PO DECREASED GLUCOSE; Start 10/09/18 at 15:00 Glucose (Glutose) 22.5 gm Q15M PRN PO DECREASED GLUCOSE; Start 10/09/18 at 15:00 Dextrose (D50w Syringe) 25 ml Q15M PRN IV DECREASED GLUCOSE; Start 10/09/18 at 15:00 Dextrose (D50w Syringe) 50 ml Q15M PRN IV DECREASED GLUCOSE; Start 10/09/18 at 15:00 Glucagon (Glucagen) 1 mg Q15M PRN IM DECREASED GLUCOSE; Start 10/09/18 at 15:00 Glucose (Glutose) 15 gm Q15M PRN BUCCAL DECREASED GLUCOSE; Start 10/09/18 at 15:00 Albuterol (Ventolin Hfa) 4 puff Q6H RESP THERAPY INH Last administered on 11/20/18 01:34; Admin Dose 4 PUFF; Start 10/10/18 at 02:00 Ipratropium [place] (Atrovent Hfa) 4 puff Q6H RESP THERAPY INH Last administered on 11/20/18at 01:34; Admin Dose 4 PUFF; Start 10/10/18 at 02:00 Quetiapine Fumarate (Seroquel) 100 mg BID GTB Last administered on 11/19/18 20:25; Admin Dose 100 MG; Start 10/21/18 at 21:00 Calcium Carbonate (Ca Carbonate) 1,250 mg QID GTB Last administered on 11/19/18 20:24; Admin Dose 1,250 MG; Start 10/24/18 at 13:00 Metoprolol Tartrate (Lopressor) 5 mg Q4H PRN IV HR>110 Hold SBP<100 Last administered on 11/11/18 18:31; Admin Dose 5 MG; Start 10/28/18 at 12:30 IV Flush (NS 10 ml) 10 ml PRN PRN IV IV PROTOCOL; Start 11/01/18 at 16:30 Midodrine (Proamatine) 5 mg TID@,,17 GTB Last administered on 11/08/18 12:53; Admin Dose 5 MG; Start 11/03/18 at 09:00; Status Hold Guaifenesin (Robitussin Liquid Cup) 100 mg Q4H PRN PO COUGH Last administered on 11/13/18 17:58; Admin Dose 100 MG; Start 11/03/18 at 12:00 Calcitriol (Rocaltrol) 1.5 mcg BID PO Last administered on 11/19/18 20:24; Admin Dose 1.5 MCG; Start 11/07/18 at 21:00 Lorazepam (Ativan) 1 mg Q4 GTB Last administered on 11/20/18 04:38; Admin Dose 1 MG; Start 11/09/18 at 14:00 Carvedilol (Coreg) 6.25 mg BID PO Last administered on 11/19/18 09:46; Admin Dose 6.25 MG; Start 11/09/18 at 21:00 Benazepril HCl (Lotensin) 10 mg DAILY PO Last administered on 11/19/18 09:46; Admin Dose 10 MG; Start 11/10/18 at 09:00 Digoxin (Digoxin) 0.25 mg DAILY@13 PO Last administered on 11/16/18 12:04; Admin Dose 0.25 MG; Start 11/11/18 at 13:00; Status Hold Furosemide (Lasix) 20 mg DAILY IV Last administered on 11/15/18 08:58; Admin Dose 20 MG; Start 11/10/18 at 12:30; Status Hold Hydromorphone HCl (Dilaudid) 3 mg Q4H PRN PO MODERATE PAIN LEVEL 7-10 Last administered on 11/17/18 01:47; Admin Dose 3 MG; Start 11/10/18 at 22:00 Cefepime HCl 50 ml @ 100 mls/hr Q12 IVPB Last administered on 11/19/18 20:25; Admin Dose 100 MLS/HR; Start 11/10/18 at 23:30 Fentanyl 100 ml @ 2.5 mls/hr TITRATE IV Last administered on 11/19/18 18:54; Admin Dose 2.5 MLS/HR; Start 11/14/18 at 09:00 Ascorbic Acid (Vitamin C) 250 mg DAILY GTB Last administered on 11/19/18 09:44; Admin Dose 250 MG; Start 11/15/18 at 09:00; Stop 11/29/18 at 09:00 Zinc Sulfate (Zinc Sulfate) 220 mg DAILY GTB Last administered on 11/19/18 09:47; Admin Dose 220 MG; Start 11/15/18 at 09:00; Stop 11/29/18 at 09:00 Hydrocortisone (Cortef) 15 mg HS PEG Last administered on 11/19/18 20:24; Admin Dose 15 MG; Start 11/15/18 at 21:00 Hydrocortisone (Cortef) 15 mg QAM PEG Last administered on 11/19/18 09:44; Admin Dose 15 MG; Start 11/16/18 at 09:00 Hydrocortisone (Cortef) 15 mg AC DINNER PEG Last administered on 11/19/18 16:17; Admin Dose 15 MG; Start 11/15/18 at 17:05 Acetazolamide (Diamox) 500 mg DAILY IV Last administered on 11/19/18 09:47; A dmin Dose 500 MG; Start 11/16/18 at 09:30 Daptomycin 185 mg/ Sodium Chloride 100 ml @ 200 mls/hr Q24H IVPB Last administered on 11/19/18 16:16; Admin Dose 200 MLS/HR; Start 11/16/18 at 16:00; Stop 11/21/18 at 15:59 Enoxaparin Sodium (Lovenox) 30 mg DAILY SC Last administered on 11/19/18at 10:11; Admin Dose 30 MG; Start 11/16/18 at 16:00 Insulin Aspart (Novolog Insulin Pen) NOVOLOG *CUSTOM* ALGORITHM Q6 SC Last administered on 11/20/18at 05:47; Admin Dose 1 UNIT; Start 11/17/18 at 12:00 Linagliptin (Tradjenta) 5 mg DAILY PO Last administered on 11/19/18at 09:45; Admin Dose 5 MG; Start 11/18/18 at 09:00 RENATO GAMBOA Nov 20, 2018 07:50
[2018-11-20] MEDS: HYDROCORTISONE 5 MG TAB PEG SCH ×2 (09:15→17:05)
[2018-11-20] MEDS: DULOXETINE 30 MG CAP DR PO SCH (09:15)
[2018-11-20] MEDS: CALCITRIOL 0.5 MCG CAPSULE PO SCH (09:15)
[2018-11-20] MEDS: ZINC SULFATE 220 MG CAP GTB SCH (09:15)
[2018-11-20] MEDS: METOCLOPRAMIDE 10 MG INJ IV SCH ×2 (09:15→13:26)
[2018-11-20] MEDS: ASCORBIC ACID 250 MG TAB GTB SCH (09:15)
[2018-11-20] MEDS: LINAGLIPTIN 5 MG TABLET PO SCH (09:16)
[2018-11-20] MEDS: QUETIAPINE 100 MG TAB GTB SCH (09:16)
[2018-11-20] MEDS: MAGNESIUM OXIDE 400 MG TAB GTB SCH (09:16)
[2018-11-20] MEDS: HYDROXYCHLOROQUINE 200 MG TAB PO SCH (09:16)
[2018-11-20] MEDS: LEVETIRACETAM (100 MG/ML) 5ML CUP GTB SCH (09:16)
[2018-11-20] MEDS: BENAZEPRIL 10 MG TAB PO SCH (09:16)
[2018-11-20] MEDS: ACETAZOLAMIDE 500 MG INJ IV SCH (09:17)
[2018-11-20] MEDS: CA CARBONATE (250 MG/ML) 5ML CUP GTB SCH ×3 (09:17→17:23)
[2018-11-20] MEDS: CEFEPIME 1GM/50 ML (PMX) 50 ML IVPB SCH (09:17)
[2018-11-20] MEDS: BALSAM PERU/CASTOR OIL 60 GM TUBE TOP SCH (09:18)
[2018-11-20] MEDS: MICONAZOLE 2% 30 GM CR TOP SCH (09:18)
[2018-11-20] MEDS: ENOXAPARIN 30 MG/0.3 ML SYG SC SCH (09:49)
[2018-11-20] MEDS ORDERED: CALCITRIOL 0.25 MCG CAP PO SCH (10:00)
[2018-11-20] MEDS: TRIMETHOPRIM/SULFAMETHOX (PO SYG) GTB SCH (10:28)
[2018-11-20] MEDS: L ACIDOPHIL/B LACTIS/B LONGUM CAPSULE GTB SCH (10:31)
[2018-11-20] MEDS ORDERED: CALCITRIOL (1 MCG/ML PO SYG) GTB SCH (11:00)
--- NOTE | 2018-11-20 11:17 | CONS ---
Consult Date/Type/Reason Admit Date/Time Oct 09, 2018 at 12:16 Initial Consult Date 10/12/18 Type of Consultation: Pulm/CCM Requesting Provider: NOLA VIDAL MD Date/Time of Note DATE: 11/20/18 TIME: 11:15 Subjective No events. Sleepy on mechanical vent. at bedside. Objective Vitals Vital Signs Date Temp Pulse Resp B/P (MAP) Pulse Ox O2 O2 Flow FiO2 Time Delivery Rate 11/20/18 116 08:00 11/20/18 90 08:00 11/20/18 116/78 100 Mechanical 07:00 (91) Ventilator 11/20/18 98.1 04:00 Intake and Output 11/19/18 11/19/18 11/20/18 1515:00 23:00 07:00 IntakeIntake Total 306.775 ml 605.725 ml 481.5 ml OutputOutput Total 700 ml 635 ml BalanceBalance 306.775 ml -94.275 ml -153.5 ml Exam HEENT: Neck supple; no JVD; no LAD; + trach site clean CVS: RRR, S1 and S2 CHEST: Coarse BS b/l ABD: Soft, NT, + BS EXT: No c/c; tr edema Results/Medications Result Diagram: 11/20/18 0423 11/20/18 0423 Results 24 hrs Laboratory Tests Test 11/19/18 12:03 11/19/18 18:41 11/19/18 23:28 11/20/18 04:23 Bedside Glucose 116 142 175 White Blood Count 15.6 H Red Blood Count 2.56 L Hemoglobin 7.0 L Hematocrit 24.7 L Mean Corpuscular Volume 96.5 Mean Corpuscular 27.3 L Hemoglobin Mean Corpuscular 28.3 L Hemoglobin Concent Red Cell Distribution 16.5 H Width Platelet Count 434 H Mean Platelet Volume 11.4 H Immature Granulocytes % 3.500 H Neutrophils % 72.8 Lymphocytes % 8.5 L Monocytes % 10.5 Eosinophils % 3.9 Basophils % 0.8 Nucleated Red Blood 0.0 Cells % Immature Granulocytes # 0.550 H Neutrophils # 11.3 H Lymphocytes # 1.3 Monocytes # 1.6 H Eosinophils # 0.6 H Basophils # 0.1 Nucleated Red Blood 0.0 Cells # Sodium Level 140 Potassium Level 4.7 Chloride Level 98 Carbon Dioxide Level 39 H Anion Gap 3 L Blood Urea Nitrogen 26 H Creatinine 0.51 L Est Glomerular Filtrat > 60 Rate mL/min Glucose Level 141 Calcium Level 9.2 Total Bilirubin 0.0 L Direct Bilirubin 0.00 Indirect Bilirubin 0.0 Aspartate Amino 25 Transf (AST/SGOT) Alanine 40 Aminotransferase (ALT/SG PT) Alkaline Phosphatase 115 Total Protein 5.5 L Albumin 2.8 L Globulin 2.70 Albumin/Globulin Ratio 1.03 Test 11/20/18 05:40 11/20/18 10:04 Bedside Glucose 159 155 Medications Current Medications Acetaminophen (Tylenol Liquid) 650 mg Q4H PRN GTB MILD PAIN(1-3)OR ELEVATED TEMP Last administered on 11/16/18 12:03; Admin Dose 650 MG; Start 10/09/18 at 14:00 Al Hydrox/Mg Hydrox/Simethicone (Mag-Al Plus) 15 ml Q6H PRN PO GASTROINTESTINAL UPSET Last administered on 10/17/18 13:18; Admin Dose 15 ML; Start 10/09/18 at 14:00 Eye Lubricant (Artificial Tears Oph) 1 drop Q6H PRN BOTH EYES DRY EYES Last administered on 11/03/18 09:33; Admin Dose 1 DROP; Start 10/09/18 at 14:00 Bisacodyl (Dulcolax Supp) 10 mg DAILY PRN [place] CONSTIPATION; Start 10/09/18 at 14:00 Clonidine (Catapres) 0.1 mg DAILY PRN GTB ELEVATED BLOOD PRESSURE; Start 10/09/18 at 14:00 Diltiazem HCl (Cardizem Iv) 5 mg Q4 PRN IV ELEVATED HEART RATE Last administered on 11/06/18 18:47; Admin Dose 5 MG; Start 10/09/18 at 14:00 Diphenhydramine HCl (Benadryl Liquid Cup) 25 mg Q6 PRN GTB ITCHING Last administered on 10/22/18 20:25; Admin Dose 25 MG; Start 10/09/18 at 14:00 Duloxetine HCl (Cymbalta) 30 mg DAILY PO Last administered on 11/20/18 09:15; Admin Dose 30 MG; Start 10/10/18 at 09:00 Gabapentin (Neurontin Liquid) 400 mg Q8 GTB Last administered on 11/20/18 05:41; Admin Dose 400 MG; Start 10/09/18 at 15:30 Hydralazine HCl (Apresoline) 10 mg Q4H PRN IV ELEVATED BLOOD PRESSURE; Start 10/09/18 at 14:00 Hydroxychloroquine Sulfate (Plaquenil) 200 mg BID PO Last administered on 11/20/18 09:16; Admin Dose 200 MG; Start 10/09/18 at 21:00 Lactobacillus Acidophilus (Florajen3 Capsule) 1 each BID GTB Last administered on 11/20/18 10:31; Admin Dose 1 EACH; Start 10/09/18 at 21:00 Lansoprazole (Prevacid) 30 mg BID@18 GTB Last administered on 11/20/18 05:41; Admin Dose 30 MG; Start 10/09/18 at 18:00 Levetiracetam (Keppra Liquid) 500 mg BID GTB Last administered on 11/20/18 09:16; Admin Dose 500 MG; Start 10/09/18 at 21:00 Magnesium Oxide (Mag-Ox 400) 400 mg BID GTB Last administered on 11/20/18 09:16; Admin Dose 400 MG; Start 10/09/18 at 21:00 Metoclopramide HCl (Reglan) 10 mg TID IV Last administered on 11/20/18 09:15; Admin Dose 10 MG; Start 10/09/18 at 21:00 Miconazole Nitrate (Miconazole 2% Cr) 1 applic BID TOP Last administered on 11/20/18 09:18; Admin Dose 1 APPLIC; Start 10/09/18 at 21:00 Miconazole Nitrate (Miconazole 2% Cr) 1 applic Q12 PRN TOP rash; Start 10/09/18 at 14:00 Ondansetron HCl (Zofran Inj) 4 mg Q4H PRN IV NAUSEA AND/OR VOMITING Last administered on 10/19/18 16:37; Admin Dose 4 MG; Start 10/09/18 at 14:00 Polyethylene Glycol (Miralax) 17 gm DAILY PRN GTB CONSTIPATION; Start 10/09/18 at 14:00 Senna (Senokot) 2 tab Q8 PRN PO CONSTIPATION; Start 10/09/18 at 14:00 Trimethoprim/ Sulfamethoxazole (Bactrim Susp) 40 ml DAILY GTB Last administered on 11/20/18 10:28; Admin Dose 40 ML; Start 10/10/18 at 09:00 Zolpidem Tartrate (Ambien) 5 mg HS PRN PO INSOMNIA Last administered on 11/03/18 01:16; Admin Dose 5 MG; Start 10/09/18 at 14:00 Miscellaneous Information 1 ea NOTE XX ; Start 10/09/18 at 15:00 Glucose (Glutose) 15 gm Q15M PRN PO DECREASED GLUCOSE; Start 10/09/18 at 15:00 Glucose (Glutose) 22.5 gm Q15M PRN PO DECREASED GLUCOSE; Start 10/09/18 at 15:00 Dextrose (D50w Syringe) 25 ml Q15M PRN IV DECREASED GLUCOSE; Start 10/09/18 at 15:00 Dextrose (D50w Syringe) 50 ml Q15M PRN IV DECREASED GLUCOSE; Start 10/09/18 at 15:00 Glucagon (Glucagen) 1 mg Q15M PRN IM DECREASED GLUCOSE; Start 10/09/18 at 15:00 Glucose (Glutose) 15 gm Q15M PRN BUCCAL DECREASED GLUCOSE; Start 10/09/18 at 15:00 Albuterol (Ventolin Hfa) 4 puff Q6H RESP THERAPY INH Last administered on 11/20/18 08:51; Admin Dose 4 PUFF; Start 10/10/18 at 02:00 Ipratropium [place] (Atrovent Hfa) 4 puff Q6H RESP THERAPY INH Last administered on 11/20/18 08:50; Admin Dose 4 PUFF; Start 10/10/18 at 02:00 Quetiapine Fumarate (Seroquel) 100 mg BID GTB Last administered on 11/20/18 09:16; Admin Dose 100 MG; Start 10/21/18 at 21:00 Calcium Carbonate (Ca Carbonate) 1,250 mg QID GTB Last administered on 11/20/18 09:17; Admin Dose 1,250 MG; Start 10/24/18 at 13:00 Metoprolol Tartrate (Lopressor) 5 mg Q4H PRN IV HR>110 Hold SBP<100 Last administered on 11/11/18at 18:31; Admin Dose 5 MG; Start 10/28/18 at 12:30 IV Flush (NS 10 ml) 10 ml PRN PRN IV IV PROTOCOL; Start 11/01/18 at 16:30 Midodrine (Proamatine) 5 mg TID@,13,17 GTB Last administered on 11/08/18 12:53; Admin Dose 5 MG; Start 11/03/18 at 09:00; Status Hold Guaifenesin (Robitussin Liquid Cup) 100 mg Q4H PRN PO COUGH Last administered on 11/13/18 17:58; Admin Dose 100 MG; Start 11/03/18 at 12:00 Lorazepam (Ativan) 1 mg Q4 GTB Last administered on 11/20/18 04:38; Admin Dose 1 MG; Start 11/09/18 at 14:00 Carvedilol (Coreg) 6.25 mg BID PO Last administered on 11/20/18 09:15; Admin Dose 6.25 MG; Start 11/09/18 at 21:00 Benazepril HCl (Lotensin) 10 mg DAILY PO Last administered on 11/20/18 09:16; Admin Dose 10 MG; Start 11/10/18 at 09:00 Digoxin (Digoxin) 0.25 mg DAILY@13 PO Last administered on 11/16/18 12:04; Admin Dose 0.25 MG; Start 11/11/18 at 13:00; Status Hold Furosemide (Lasix) 20 mg DAILY IV Last administered on 11/15/18 08:58; Admin Dose 20 MG; Start 11/10/18 at 12:30; Status Hold Hydromorphone HCl (Dilaudid) 3 mg Q4H PRN PO MODERATE PAIN LEVEL 7-10 Last administered on 11/17/18 01:47; Admin Dose 3 MG; Start 11/10/18 at 22:00 Cefepime HCl 50 ml @ 100 mls/hr Q12 IVPB Last administered on 11/20/18 09:17; Admin Dose 100 MLS/HR; Start 11/10/18 at 23:30 Fentanyl 100 ml @ 2.5 mls/hr TITRATE IV Last administered on 11/19/18 18:54; Admin Dose 2.5 MLS/HR; Start 11/14/18 at 09:00 Ascorbic Acid (Vitamin C) 250 mg DAILY GTB Last administered on 11/20/18 09:15; Admin Dose 250 MG; Start 11/15/18 at 09:00; Stop 11/29/18 at 09:00 Zinc Sulfate (Zinc Sulfate) 220 mg DAILY GTB Last administered on 11/20/18 09:15; Admin Dose 220 MG; Start 11/15/18 at 09:00; Stop 11/29/18 at 09:00 Hydrocortisone (Cortef) 15 mg HS PEG Last administered on 11/19/18 20:24; Admin Dose 15 MG; Start 11/15/18 at 21:00 Hydrocortisone (Cortef) 15 mg QAM PEG Last administered on 11/20/18 09:15; Admin Dose 15 MG; Start 11/16/18 at 09:00 Hydrocortisone (Cortef) 15 mg AC DINNER PEG Last administered on 11/19/18 16:17; Admin Dose 15 MG; Start 11/15/18 at 17:05 Acetazolamide (Diamox) 500 mg DAILY IV Last administered on 11/20/18 09:17; Admin Dose 500 MG; Start 11/16/18 at 09:30 Daptomycin 185 mg/ Sodium Chloride 100 ml @ 200 mls/hr Q24H IVPB Last administered on 11/19/18 16:16; Admin Dose 200 MLS/HR; Start 11/16/18 at 16:00; Stop 11/21/18 at 15:59 Enoxaparin Sodium (Lovenox) 30 mg DAILY SC Last administered on 11/20/18 09:49; Admin Dose 30 MG; Start 11/16/18 at 16:00 Insulin Aspart (Novolog Insulin Pen) NOVOLOG *CUSTOM* ALGORITHM Q6 SC Last administered on 11/20/18 05:47; Admin Dose 1 UNIT; Start 11/17/18 at 12:00 Linagliptin (Tradjenta) 5 mg DAILY PO Last administered on 11/20/18 09:16; Admin Dose 5 MG; Start 11/18/18 at 09:00 Calcitriol (Rocaltrol Liquid (Ped)) 1.5 mcg BID GTB Last administered on 11/20/18 10:28; Admin Dose 1.5 MCG; Start 11/20/18 at 11:00 Assessment/Plan Assessment/Plan (Daily) IMP: 1. Acute on chronic hypoxemic respiratory failure with underlying acute respiratory distress syndrome. 2. History of HSV esophagitis. 3. Chronic sepsis. 4. History of rheumatoid arthritis. 5. C-spine disease with functional quadriplegia. 6. Dysphagia with G-tube 7. Anemia RECS: 1. Continue current ventilatory support 2. DNR/DNI status noted 3. wishes for her kids to see their father one more time before tr ansitioning to comfort care Critical care time 40 minute YOLETTE REYNOLDS MD Nov 20, 2018 11:17
--- NOTE | 2018-11-20 11:44 | PN ---
Date/Time of Note Date/Time of Note DATE: 11/20/18 TIME: 11:43 Assessment/Plan VTE Prophylaxis Risk score (from [facility] [place])>0 risk: 9 SCD applied (from [facility] [place]): No SCD contraindicated: other Pharmacological prophylaxis: LMWH Lines/Catheters IV Catheter Type (from [facility]): PICC Line Central line still needed: Yes Urinary Cath still in place: Yes Reason Cath still needed: skin wounds contaminated by urine Assessment/Plan Hospital Course - Acute on chronic hypoxemic respiratory failure with underlying ARDS, continue ventilatory support. Dr. Villa is following in pulmonology consultation. - Recurrent sepsis secondary to pneumonia and UTI. Continue antibiotics per ID. Dr. Canales is following in infection disease consultation. - Acute kidney injury, resolved, continue to monitor BUN and creatinine. Dr. Hobson is following in nephrology consultation. - Tachycardia, Dr. Joshi is following in cardiology consultation. - Cardiomyopathy with EF 35-40% - Rheumatoid arthritis with steroid dependence. - Dysphagia. Continue GT feeding. - Anemia of chronic disease. - Hypoparathyroidism - Hypertension. - Functional quadriplegia - Hx of severe cervical spinal cord stenosis with cord compression from C3-C5, s/p laminectomy. - History of fibromyalgia rheumatica - Hx of VAT on 08/11/2018 - Poor prognosis, Dr. Zurita is following in palliative care consultation. - DNR status Spoke with , she is going to change code status to include no further vasopressors Result Diagram: 11/20/18 0423 11/20/18 0423 Results 24hrs Laboratory Tests Test 11/19/18 12:03 11/19/18 18:41 11/19/18 23:28 11/20/18 04:23 Bedside Glucose 116 142 175 White Blood Count 15.6 H Red Blood Count 2.56 L Hemoglobin 7.0 L Hematocrit 24.7 L Mean Corpuscular Volume 96.5 Mean Corpuscular 27.3 L Hemoglobin Mean Corpuscular 28.3 L Hemoglobin Concent Red Cell Distribution 16.5 H Width Platelet Count 434 H Mean Platelet Volume 11.4 H Immature Granulocytes % 3.500 H Neutrophils % 72.8 Lymphocytes % 8.5 L Monocytes % 10.5 Eosinophils % 3.9 Basophils % 0.8 Nucleated Red Blood 0.0 Cells % Immature Granulocytes # 0.550 H Neutrophils # 11.3 H Lymphocytes # 1.3 Monocytes # 1.6 H Eosinophils # 0.6 H Basophils # 0.1 Nucleated Red Blood 0.0 Cells # Sodium Level 140 Potassium Level 4.7 Chloride Level 98 Carbon Dioxide Level 39 H Anion Gap 3 L Blood Urea Nitrogen 26 H Creatinine 0.51 L Est Glomerular Filtrat > 60 Rate mL/min Glucose Level 141 Calcium Level 9.2 Total Bilirubin 0.0 L Direct Bilirubin 0.00 Indirect Bilirubin 0.0 Aspartate Amino 25 Transf (AST/SGOT) Alanine 40 Aminotransferase (ALT/SG PT) Alkaline Phosphatase 115 Total Protein 5.5 L Albumin 2.8 L Globulin 2.70 Albumin/Globulin Ratio 1.03 Test 11/20/18 05:40 11/20/18 10:04 Bedside Glucose 159 155 Subjective 24 Hr Interval Summary Free Text/Dictation Patient is sedated, blood pressure is low. Patient remain modified code with no vasopressors. Exam/Review of Systems Exam Vitals Vital Signs Date Temp Pulse Resp B/P (MAP) Pulse Ox O2 O2 Flow FiO2 Time Delivery Rate 11/20/18 116 08:00 11/20/18 90 08:00 11/20/18 19 116/78 100 Mechanical 07:00 (91) Ventilator 11/20/18 98.1 04:00 Intake and Output 11/19/18 11/19/18 11/20/18 1515:00 23:00 07:00 IntakeIntake Total 306.775 ml 605.725 ml 481.5 ml OutputOutput Total 700 ml 635 ml BalanceBalance 306.775 ml -94.275 ml -153.5 ml Constitutional: well developed Head: normocephalic, atraumatic Neck: supple Respiratory: diminished breath sounds Cardiovascular: regular rate and rhythm Gastrointestinal: soft, non-tender Extremities: normal pulses Results Results 24hrs Laboratory Tests Test 11/19/18 12:03 11/19/18 18:41 11/19/18 23:28 11/20/18 04:23 Bedside Glucose 116 142 175 White Blood Count 15.6 H Red Blood Count 2.56 L Hemoglobin 7.0 L Hematocrit 24.7 L Mean Corpuscular Volume 96.5 Mean Corpuscular 27.3 L Hemoglobin Mean Corpuscular 28.3 L Hemoglobin Concent Red Cell Distribution 16.5 H Width Platelet Count 434 H Mean Platelet Volume 11.4 H Immature Granulocytes % 3.500 H Neutrophils % 72.8 Lymphocytes % 8.5 L Monocytes % 10.5 Eosinophils % 3.9 Basophils % 0.8 Nucleated Red Blood 0.0 Cells % Immature Granulocytes # 0.550 H Neutrophils # 11.3 H Lymphocytes # 1.3 Monocytes # 1.6 H Eosinophils # 0.6 H Basophils # 0.1 Nucleated Red Blood 0.0 Cells # Sodium Level 140 Potassium Level 4.7 Chloride Level 98 Carbon Dioxide Level 39 H Anion Gap 3 L Blood Urea Nitrogen 26 H Creatinine 0.51 L Est Glomerular Filtrat > 60 Rate mL/min Glucose Level 141 Calcium Level 9.2 Total Bilirubin 0.0 L Direct Bilirubin 0.00 Indirect Bilirubin 0.0 Aspartate Amino 25 Transf (AST/SGOT) Alanine 40 Aminotransferase (ALT/SG PT) Alkaline Phosphatase 115 Total Protein 5.5 L Albumin 2.8 L Globulin 2.70 Albumin/Globulin Ratio 1.03 Test 11/20/18 05:40 11/20/18 10:04 Bedside Glucose 159 155 Medications Medication Current Medications Acetaminophen (Tylenol Liquid) 650 mg Q4H PRN GTB MILD PAIN(1-3)OR ELEVATED TEMP Last administered on 11/16/18 12:03; Admin Dose 650 MG; Start 10/09/18 at 14:00 Al Hydrox/Mg Hydrox/Simethicone (Mag-Al Plus) 15 ml Q6H PRN PO GASTROINTESTINAL UPSET Last administered on 10/17/18 13:18; Admin Dose 15 ML; Start 10/09/18 at 14:00 Eye Lubricant (Artificial Tears Oph) 1 drop Q6H PRN BOTH EYES DRY EYES Last administered on 11/03/18at 09:33; Admin Dose 1 DROP; Start 10/09/18 at 14:00 Bisacodyl (Dulcolax Supp) 10 mg DAILY PRN [place] CONSTIPATION; Start 10/09/18 at 14:00 Clonidine (Catapres) 0.1 mg DAILY PRN GTB ELEVATED BLOOD PRESSURE; Start 10/09/18 at 14:00 Diltiazem HCl (Cardizem Iv) 5 mg Q4 PRN IV ELEVATED HEART RATE Last administered on 11/06/18at 18:47; Admin Dose 5 MG; Start 10/09/18 at 14:00 Diphenhydramine HCl (Benadryl Liquid Cup) 25 mg Q6 PRN GTB ITCHING Last administered on 10/22/18 20:25; Admin Dose 25 MG; Start 10/09/18 at 14:00 Duloxetine HCl (Cymbalta) 30 mg DAILY PO Last administered on 11/20/18 09:15; Admin Dose 30 MG; Start 10/10/18 at 09:00 Gabapentin (Neurontin Liquid) 400 mg Q8 GTB Last administered on 11/20/18 05:41; Admin Dose 400 MG; Start 10/09/18 at 15:30 Hydralazine HCl (Apresoline) 10 mg Q4H PRN IV ELEVATED BLOOD PRESSURE; Start 10/09/18 at 14:00 Hydroxychloroquine Sulfate (Plaquenil) 200 mg BID PO Last administered on 11/20/18 09:16; Admin Dose 200 MG; Start 10/09/18 at 21:00 Lactobacillus Acidophilus (Florajen3 Capsule) 1 each BID GTB Last administered on 11/20/18 10:31; Admin Dose 1 EACH; Start 10/09/18 at 21:00 Lansoprazole (Prevacid) 30 mg BID@06,18 GTB Last administered on 11/20/18 05:41; Admin Dose 30 MG; Start 10/09/18 at 18:00 Levetiracetam (Keppra Liquid) 500 mg BID GTB Last administered on 11/20/18 09:16; Admin Dose 500 MG; Start 10/09/18 at 21:00 Magnesium Oxide (Mag-Ox 400) 400 mg BID GTB Last administered on 11/20/18 09:16; Admin Dose 400 MG; Start 10/09/18 at 21:00 Metoclopramide HCl (Reglan) 10 mg TID IV Last administered on 11/20/18 09:15; Admin Dose 10 MG; Start 10/09/18 at 21:00 Miconazole Nitrate (Miconazole 2% Cr) 1 applic BID TOP Last administered on 11/20/18 09:18; Admin Dose 1 APPLIC; Start 10/09/18 at 21:00 Miconazole Nitrate (Miconazole 2% Cr) 1 applic Q12 PRN TOP rash; Start 10/09/18 at 14:00 Ondansetron HCl (Zofran Inj) 4 mg Q4H PRN IV NAUSEA AND/OR VOMITING Last administered on 3/6/19at 16:37; Admin Dose 4 MG; Start 10/09/18 at 14:00 Polyethylene Glycol (Miralax) 17 gm DAILY PRN GTB CONSTIPATION; Start 10/09/18 at 14:00 Senna (Senokot) 2 tab Q8 PRN PO CONSTIPATION; Start 10/09/18 at 14:00 Trimethoprim/ Sulfamethoxazole (Bactrim Susp) 40 ml DAILY GTB Last administered on 11/20/18at 10:28; Admin Dose 40 ML; Start 10/10/18 at 09:00 Zolpidem Tartrate (Ambien) 5 mg HS PRN PO INSOMNIA Last administered on 11/03/18at 01:16; Admin Dose 5 MG; Start 10/09/18 at 14:00 Miscellaneous Information 1 ea NOTE XX ; Start 10/09/18 at 15:00 Glucose (Glutose) 15 gm Q15M PRN PO DECREASED GLUCOSE; Start 10/09/18 at 15:00 Glucose (Glutose) 22.5 gm Q15M PRN PO DECREASED GLUCOSE; Start 10/09/18 at 15:00 Dextrose (D50w Syringe) 25 ml Q15M PRN IV DECREASED GLUCOSE; Start 10/09/18 at 15:00 Dextrose (D50w Syringe) 50 ml Q15M PRN IV DECREASED GLUCOSE; Start 10/09/18 at 15:00 Glucagon (Glucagen) 1 mg Q15M PRN IM DECREASED GLUCOSE; Start 10/09/18 at 15:00 Glucose (Glutose) 15 gm Q15M PRN BUCCAL DECREASED GLUCOSE; Start 10/09/18 at 15:00 Albuterol (Ventolin Hfa) 4 puff Q6H RESP THERAPY INH Last administered on 11/20/18at 08:51; Admin Dose 4 PUFF; Start 10/10/18 at 02:00 Ipratropium [place] (Atrovent Hfa) 4 puff Q6H RESP THERAPY INH Last administered on 11/20/18at 08:50; Admin Dose 4 PUFF; Start 10/10/18 at 02:00 Quetiapine Fumarate (Seroquel) 100 mg BID GTB Last administered on 11/20/18at 09:16; Admin Dose 100 MG; Start 10/21/18 at 21:00 Calcium Carbonate (Ca Carbonate) 1,250 mg QID GTB Last administered on 11/20/18 09:17; Admin Dose 1,250 MG; Start 10/24/18 at 13:00 Metoprolol Tartrate (Lopressor) 5 mg Q4H PRN IV HR>110 Hold SBP<100 Last administered on 11/11/18 18:31; Admin Dose 5 MG; Start 10/28/18 at 12:30 IV Flush (NS 10 ml) 10 ml PRN PRN IV IV PROTOCOL; Start 11/01/18 at 16:30 Midodrine (Proamatine) 5 mg TID@,13,17 GTB Last administered on 11/08/18 12:53; Admin Dose 5 MG; Start 11/03/18 at 09:00; Status Hold Guaifenesin (Robitussin Liquid Cup) 100 mg Q4H PRN PO COUGH Last administered on 11/13/18 17:58; Admin Dose 100 MG; Start 11/03/18 at 12:00 Lorazepam (Ativan) 1 mg Q4 GTB Last administered on 11/20/18 04:38; Admin Dose 1 MG; Start 11/09/18 at 14:00 Carvedilol (Coreg) 6.25 mg BID PO Last administered on 11/20/18 09:15; Admin Dose 6.25 MG; Start 11/09/18 at 21:00 Benazepril HCl (Lotensin) 10 mg DAILY PO Last administered on 11/20/18 09:16; Admin Dose 10 MG; Start 11/10/18 at 09:00 Digoxin (Digoxin) 0.25 mg DAILY@13 PO Last administered on 11/16/18 12:04; A dmin Dose 0.25 MG; Start 11/11/18 at 13:00; Status Hold Furosemide (Lasix) 20 mg DAILY IV Last administered on 11/15/18 08:58; Admin Dose 20 MG; Start 11/10/18 at 12:30; Status Hold Hydromorphone HCl (Dilaudid) 3 mg Q4H PRN PO MODERATE PAIN LEVEL 7-10 Last administered on 11/17/18 01:47; Admin Dose 3 MG; Start 11/10/18 at 22:00 Cefepime HCl 50 ml @ 100 mls/hr Q12 IVPB Last administered on 11/20/18 09:17; Admin Dose 100 MLS/HR; Start 11/10/18 at 23:30 Fentanyl 100 ml @ 2.5 mls/hr TITRATE IV Last administered on 11/19/18 18:54; Admin Dose 2.5 MLS/HR; Start 11/14/18 at 09:00 Ascorbic Acid (Vitamin C) 250 mg DAILY GTB Last administered on 11/20/18 09:15; Admin Dose 250 MG; Start 11/15/18 at 09:00; Stop 11/29/18 at 09:00 Zinc Sulfate (Zinc Sulfate) 220 mg DAILY GTB Last administered on 11/20/18 09:15; Admin Dose 220 MG; Start 11/15/18 at 09:00; Stop 11/29/18 at 09:00 Hydrocortisone (Cortef) 15 mg HS PEG Last administered on 11/19/18 20:24; Admin Dose 15 MG; Start 11/15/18 at 21:00 Hydrocortisone (Cortef) 15 mg QAM PEG Last administered on 11/20/18 09:15; Admin Dose 15 MG; Start 11/16/18 at 09:00 Hydrocortisone (Cortef) 15 mg AC DINNER PEG Last administered on 11/19/18 16:17; Admin Dose 15 MG; Start 11/15/18 at 17:05 Acetazolamide (Diamox) 500 mg DAILY IV Last administered on 11/20/18 09:17; Admin Dose 500 MG; Start 11/16/18 at 09:30 Daptomycin 185 mg/ Sodium Chloride 100 ml @ 200 mls/hr Q24H IVPB Last administered on 11/19/18 16:16; Admin Dose 200 MLS/HR; Start 11/16/18 at 16:00; Stop 11/21/18 at 15:59 Enoxaparin Sodium (Lovenox) 30 mg DAILY SC Last administered on 11/20/18 09:49; Admin Dose 30 MG; Start 11/16/18 at 16:00 Insulin Aspart (Novolog Insulin Pen) NOVOLOG *CUSTOM* ALGORITHM Q6 SC Last administered on 11/20/18 05:47; Admin Dose 1 UNIT; Start 11/17/18 at 12:00 Linagliptin (Tradjenta) 5 mg DAILY PO Last administered on 11/20/18 09:16; Admin Dose 5 MG; Start 11/18/18 at 09:00 Calcitriol (Rocaltrol Liquid (Ped)) 1.5 mcg BID GTB Last administered on 11/20/18at 10:28; Admin Dose 1.5 MCG; Start 11/20/18 at 11:00 ANGELES HO Nov 20, 2018 11:44
--- NOTE | 2018-11-20 11:54 | CONS ---
Assessment/Plan Assessment/Plan Assessment/Plan (Daily) 1. Nonoliguric acute kidney injury with previously normal baseline creatinine. Etiology of acute kidney injury is secondary to hemodynamics. Renal function is improved. Continue to monitor. 2. Mixed acid base disorder. The patient has metabolic alkalosis with compensatory respiratory acidosis. continue diamox. Bicarbonate levels have been improving. Continue to monitor. Monitor electrolytes closely. 3. Volume overload, improving. Continue current diuretic regimen. 4. Ventilator dependent respiratory failure. Vent settings and ABG was reviewed. Continue to monitor. 5. Adrenal insufficiency. Continue Cortef. 6. Dysphagia, status post PEG-tube feeding. 7. Hypertension. Continue current blood pressure regimen. 8. Hypomagnesemia. replaced 9. Mineral bone disorder. if calcium continues to increase, consider decreasing Ca supplement of calcitriol. Monitor calcium and phosphorus levels. Continue vitamin D analogs. 10. Status post shock. 11. Anxiety disorder. Consultation Date/Type/Reason Admit Date/Time Oct 09, 2018 at 12:16 Initial Consult Date 10/12/18 Requesting Provider: NOLA VIDAL MD Date/Time of Note DATE: 11/20/18 TIME: 11:52 24 HR Interval Summary Free Text/Dictation remains intubated. requiring high peep and high fiO2 adequate urine output d/w rn PE: gen elderly male, nad cv rrr pulm coarse bs abd soft, nd, nt +bs ext: no edema Exam/Review of Systems Exam Vitals Vital Signs Date Temp Pulse Resp B/P (MAP) Pulse Ox O2 O2 Flow FiO2 Time Delivery Rate 11/20/18 116 08:00 11/20/18 90 08:00 11/20/18 19 116/78 100 Mechanical 07:00 (91) Ventilator 11/20/18 98.1 04:00 Intake and Output 11/19/18 11/19/18 11/20/18 1515:00 23:00 07:00 IntakeIntake Total 306.775 ml 605.725 ml 481.5 ml OutputOutput Total 700 ml 635 ml BalanceBalance 306.775 ml -94.275 ml -153.5 ml Results Result Diagram: 11/20/18 0423 11/20/18 0423 Results 24hrs Laboratory Tests Test 11/19/18 12:03 11/19/18 18:41 11/19/18 23:28 11/20/18 04:23 Bedside Glucose 116 142 175 White Blood Count 15.6 H Red Blood Count 2.56 L Hemoglobin 7.0 L Hematocrit 24.7 L Mean Corpuscular Volume 96.5 Mean Corpuscular 27.3 L Hemoglobin Mean Corpuscular 28.3 L Hemoglobin Concent Red Cell Distribution 16.5 H Width Platelet Count 434 H Mean Platelet Volume 11.4 H Immature Granulocytes % 3.500 H Neutrophils % 72.8 Lymphocytes % 8.5 L Monocytes % 10.5 Eosinophils % 3.9 Basophils % 0.8 Nucleated Red Blood 0.0 Cells % Immature Granulocytes # 0.550 H Neutrophils # 11.3 H Lymphocytes # 1.3 Monocytes # 1.6 H Eosinophils # 0.6 H Basophils # 0.1 Nucleated Red Blood 0.0 Cells # Sodium Level 140 Potassium Level 4.7 Chloride Level 98 Carbon Dioxide Level 39 H Anion Gap 3 L Blood Urea Nitrogen 26 H Creatinine 0.51 L Est Glomerular Filtrat > 60 Rate mL/min Glucose Level 141 Calcium Level 9.2 Total Bilirubin 0.0 L Direct Bilirubin 0.00 Indirect Bilirubin 0.0 Aspartate Amino 25 Transf (AST/SGOT) Alanine 40 Aminotransferase (ALT/SG PT) Alkaline Phosphatase 115 Total Protein 5.5 L Albumin 2.8 L Globulin 2.70 Albumin/Globulin Ratio 1.03 Test 11/20/18 05:40 11/20/18 10:04 Bedside Glucose 159 155 Medications Medication Current Medications Acetaminophen (Tylenol Liquid) 650 mg Q4H PRN GTB MILD PAIN(1-3)OR ELEVATED TEMP Last administered on 11/16/18 12:03; Admin Dose 650 MG; Start 10/09/18 at 14:00 Al Hydrox/Mg Hydrox/Simethicone (Mag-Al Plus) 15 ml Q6H PRN PO GASTROINTESTINAL UPSET Last administered on 10/17/18 13:18; Admin Dose 15 ML; Start 10/09/18 at 14:00 Eye Lubricant (Artificial Tears Oph) 1 drop Q6H PRN BOTH EYES DRY EYES Last administered on 11/03/18at 09:33; Admin Dose 1 DROP; Start 10/09/18 at 14:00 Bisacodyl (Dulcolax Supp) 10 mg DAILY PRN [place] CONSTIPATION; Start 10/09/18 at 14:00 Clonidine (Catapres) 0.1 mg DAILY PRN GTB ELEVATED BLOOD PRESSURE; Start 10/09/18 at 14:00 Diltiazem HCl (Cardizem Iv) 5 mg Q4 PRN IV ELEVATED HEART RATE Last administered on 11/06/18 18:47; Admin Dose 5 MG; Start 10/09/18 at 14:00 Diphenhydramine HCl (Benadryl Liquid Cup) 25 mg Q6 PRN GTB ITCHING Last administered on 10/22/18 20:25; Admin Dose 25 MG; Start 10/09/18 at 14:00 Duloxetine HCl (Cymbalta) 30 mg DAILY PO Last administered on 11/20/18 09:15; Admin Dose 30 MG; Start 10/10/18 at 09:00 Gabapentin (Neurontin Liquid) 400 mg Q8 GTB Last administered on 11/20/18 05:41; Admin Dose 400 MG; Start 10/09/18 at 15:30 Hydralazine HCl (Apresoline) 10 mg Q4H PRN IV ELEVATED BLOOD PRESSURE; Start 10/09/18 at 14:00 Hydroxychloroquine Sulfate (Plaquenil) 200 mg BID PO Last administered on 11/20/18 09:16; Admin Dose 200 MG; Start 10/09/18 at 21:00 Lactobacillus Acidophilus (Florajen3 Capsule) 1 each BID GTB Last administered on 11/20/18 10:31; Admin Dose 1 EACH; Start 10/09/18 at 21:00 Lansoprazole (Prevacid) 30 mg BID@06,18 GTB Last administered on 11/20/18 05:41; Admin Dose 30 MG; Start 10/09/18 at 18:00 Levetiracetam (Keppra Liquid) 500 mg BID GTB Last administered on 11/20/18 09:16; Admin Dose 500 MG; Start 10/09/18 at 21:00 Magnesium Oxide (Mag-Ox 400) 400 mg BID GTB Last administered on 11/20/18 09:16; Admin Dose 400 MG; Start 10/09/18 at 21:00 Metoclopramide HCl (Reglan) 10 mg TID IV Last administered on 11/20/18 09:15; Admin Dose 10 MG; Start 10/09/18 at 21:00 Miconazole Nitrate (Miconazole 2% Cr) 1 applic BID TOP Last administered on 11/20/18at 09:18; Admin Dose 1 APPLIC; Start 10/09/18 at 21:00 Miconazole Nitrate (Miconazole 2% Cr) 1 applic Q12 PRN TOP rash; Start 10/09/18 at 14:00 Ondansetron HCl (Zofran Inj) 4 mg Q4H PRN IV NAUSEA AND/OR VOMITING Last administered on 10/19/18at 16:37; Admin Dose 4 MG; Start 10/09/18 at 14:00 Polyethylene Glycol (Miralax) 17 gm DAILY PRN GTB CONSTIPATION; Start 10/09/18 at 14:00 Senna (Senokot) 2 tab Q8 PRN PO CONSTIPATION; Start 10/09/18 at 14:00 Trimethoprim/ Sulfamethoxazole (Bactrim Susp) 40 ml DAILY GTB Last administered on 11/20/18at 10:28; Admin Dose 40 ML; Start 10/10/18 at 09:00 Zolpidem Tartrate (Ambien) 5 mg HS PRN PO INSOMNIA Last administered on 11/03/18at 01:16; Admin Dose 5 MG; Start 10/09/18 at 14:00 Miscellaneous Information 1 ea NOTE XX ; Start 10/09/18 at 15:00 Glucose (Glutose) 15 gm Q15M PRN PO DECREASED GLUCOSE; Start 10/09/18 at 15:00 Glucose (Glutose) 22.5 gm Q15M PRN PO DECREASED GLUCOSE; Start 10/09/18 at 15:00 Dextrose (D50w Syringe) 25 ml Q15M PRN IV DECREASED GLUCOSE; Start 10/09/18 at 15:00 Dextrose (D50w Syringe) 50 ml Q15M PRN IV DECREASED GLUCOSE; Start 10/09/18 at 15:00 Glucagon (Glucagen) 1 mg Q15M PRN IM DECREASED GLUCOSE; Start 10/09/18 at 15:00 Glucose (Glutose) 15 gm Q15M PRN BUCCAL DECREASED GLUCOSE; Start 10/09/18 at 15:00 Albuterol (Ventolin Hfa) 4 puff Q6H RESP THERAPY INH Last administered on 11/20/18at 08:51; Admin Dose 4 PUFF; Start 10/10/18 at 02:00 Ipratropium [place] (Atrovent Hfa) 4 puff Q6H RESP THERAPY INH Last administered on 11/20/18 08:50; Admin Dose 4 PUFF; Start 10/10/18 at 02:00 Quetiapine Fumarate (Seroquel) 100 mg BID GTB Last administered on 11/20/18 09:16; Admin Dose 100 MG; Start 10/21/18 at 21:00 Calcium Carbonate (Ca Carbonate) 1,250 mg QID GTB Last administered on 11/20/18 09:17; Admin Dose 1,250 MG; Start 10/24/18 at 13:00 Metoprolol Tartrate (Lopressor) 5 mg Q4H PRN IV HR>110 Hold SBP<100 Last administered on 11/11/18 18:31; Admin Dose 5 MG; Start 10/28/18 at 12:30 IV Flush (NS 10 ml) 10 ml PRN PRN IV IV PROTOCOL; Start 11/01/18 at 16:30 Midodrine (Proamatine) 5 mg TID@,,17 GTB Last administered on 11/08/18 12:53; Admin Dose 5 MG; Start 11/03/18 at 09:00; Status Hold Guaifenesin (Robitussin Liquid Cup) 100 mg Q4H PRN PO COUGH Last administered on 11/13/18 17:58; Admin Dose 100 MG; Start 11/03/18 at 12:00 Lorazepam (Ativan) 1 mg Q4 GTB Last administered on 11/20/18 04:38; Admin Dose 1 MG; Start 11/09/18 at 14:00 Carvedilol (Coreg) 6.25 mg BID PO Last administered on 11/20/18 09:15; Admin Dose 6.25 MG; Start 11/09/18 at 21:00 Benazepril HCl (Lotensin) 10 mg DAILY PO Last administered on 11/20/18 09:16; A dmin Dose 10 MG; Start 11/10/18 at 09:00 Digoxin (Digoxin) 0.25 mg DAILY@13 PO Last administered on 11/16/18 12:04; Admin Dose 0.25 MG; Start 11/11/18 at 13:00; Status Hold Furosemide (Lasix) 20 mg DAILY IV Last administered on 11/15/18 08:58; Admin Dose 20 MG; Start 11/10/18 at 12:30; Status Hold Hydromorphone HCl (Dilaudid) 3 mg Q4H PRN PO MODERATE PAIN LEVEL 7-10 Last administered on 11/17/18 01:47; Admin Dose 3 MG; Start 11/10/18 at 22:00 Cefepime HCl 50 ml @ 100 mls/hr Q12 IVPB Last administered on 11/20/18 09:17; Admin Dose 100 MLS/HR; Start 11/10/18 at 23:30 Fentanyl 100 ml @ 2.5 mls/hr TITRATE IV Last administered on 11/19/18 18:54; Admin Dose 2.5 MLS/HR; Start 11/14/18 at 09:00 Ascorbic Acid (Vitamin C) 250 mg DAILY GTB Last administered on 11/20/18 09:15; Admin Dose 250 MG; Start 11/15/18 at 09:00; Stop 11/29/18 at 09:00 Zinc Sulfate (Zinc Sulfate) 220 mg DAILY GTB Last administered on 11/20/18 09:15; Admin Dose 220 MG; Start 11/15/18 at 09:00; Stop 11/29/18 at 09:00 Hydrocortisone (Cortef) 15 mg HS PEG Last administered on 11/19/18 20:24; Admin Dose 15 MG; Start 11/15/18 at 21:00 Hydrocortisone (Cortef) 15 mg QAM PEG Last administered on 11/20/18 09:15; Admin Dose 15 MG; Start 11/16/18 at 09:00 Hydrocortisone (Cortef) 15 mg AC DINNER PEG Last administered on 11/19/18 16:17; Admin Dose 15 MG; Start 11/15/18 at 17:05 Acetazolamide (Diamox) 500 mg DAILY IV Last administered on 11/20/18 09:17; Admin Dose 500 MG; Start 11/16/18 at 09:30 Daptomycin 185 mg/ Sodium Chloride 100 ml @ 200 mls/hr Q24H IVPB Last administered on 11/19/18 16:16; Admin Dose 200 MLS/HR; Start 11/16/18 at 16:00; Stop 11/21/18 at 15:59 Enoxaparin Sodium (Lovenox) 30 mg DAILY SC Last administered on 11/20/18 09:49; Admin Dose 30 MG; Start 11/16/18 at 16:00 Insulin Aspart (Novolog Insulin Pen) NOVOLOG *CUSTOM* ALGORITHM Q6 SC Last administered on 11/20/18at 05:47; Admin Dose 1 UNIT; Start 11/17/18 at 12:00 Linagliptin (Tradjenta) 5 mg DAILY PO Last administered on 11/20/18at 09:16; Adm in Dose 5 MG; Start 11/18/18 at 09:00 Calcitriol (Rocaltrol Liquid (Ped)) 1.5 mcg BID GTB Last administered on 11/20/18at 10:28; Admin Dose 1.5 MCG; Start 11/20/18 at 11:00 RISHABH MILLAN MD Nov 20, 2018 11:54
[2018-11-20] MEDS ORDERED: SOD CHLORIDE 0.9% 500 ML IV ONE (12:30)
--- NOTE | 2018-11-20 13:02 | CONS ---
Assessment/Plan Cardiology Heart Failure Type: Acute on Chronic Heart Failure Type: Systolic Assessment/Plan Hospital Course (Demo Recall) IMPRESSION: 1. Tachycardia- S tach. Ongoing Likley due to anxiety/infection/cardiomyopathy, multifactorial. Overall improved today 2. Hypotension-now off pressors with HTN but labile 3. Abnormal electrocardiogram at baseline. 4. Chronic respiratory failure, status post tracheostomy.-weaning vent support 5. Dysphagia, status post G-tube. 6. Quadriplegia. 7. Renal insufficiency, on steroids. 8. Chronic obstructive pulmonary disease. 9. Rheumatoid arthritis. 10. Chronic kidney disease. 11. Diabetes mellitus. 12.Adrenal insufficiency 14. cardiomyopathy-EF 35-40% by echo this admit 15. anemia Recc -ICU -Ongoing Vent support with inability to wean from High percentage FI02 -Continue abx's and f/u cx data -continue steroids -Follow volume status -Continue coreg and ACEI as tolerated -started on fentanyl drip for patient comfort/tachypnea -Holding digoxin given elevated level and will recheck -Lasix held currently -Now DNR Consultation Date/Type/Reason Admit Date/Time Oct 09, 2018 at 12:16 Initial Consult Date 10/09/18 Type of Consult Cardiology Reason for Consultation cardiomyopathy Requesting Provider: NOLA VIDAL MD Date/Time of Note DATE: 11/20/18 TIME: 13:01 Exam/Review of Systems Vital Signs Vitals Vital Signs Date Temp Pulse Resp B/P (MAP) Pulse Ox O2 O2 Flow FiO2 Time Delivery Rate 11/20/18 102 28 95 90 11:30 11/20/18 116/78 Mechanical 07:00 (91) Ventilator 11/20/18 98.1 04:00 Intake and Output 11/19/18 11/19/18 11/20/18 1515:00 23:00 07:00 IntakeIntake Total 306.775 ml 605.725 ml 481.5 ml OutputOutput Total 700 ml 635 ml BalanceBalance 306.775 ml -94.275 ml -153.5 ml Exam Exam Review of Systems: CONSTITUTIONAL: No fevers, chills. PULMONARY: No sob CARDIOVASCULAR: No chest pain/palpitations GASTROINTESTINAL: No nausea/vomiting. GENITOURINARY: No hematuria/dysuria. MUSCULOSKELETAL: No myagias/arthalgias. PSYCHIATRIC: The patient denies depression. NEUROLOGIC: No weakness Constitutional: other (encepahlopathic) Psych: no complaints Head: normocephalic ENMT: mucosa pink and moist Neck: supple, jvd (9 cm water) Respiratory: diminished breath sounds Cardiovascular: regular rate and rhythm Gastrointestinal: soft, non-tender Musculoskeletal: muscle tone (normal) Extremities: edema (none) Neurological: other (No focal deficits) Labs Result Diagram: 11/20/18 0423 11/20/18 0423 Results 24hrs Laboratory Tests Test 11/19/18 18:41 11/19/18 23:28 11/20/18 04:23 11/20/18 05:40 Bedside Glucose 142 175 159 White Blood Count 15.6 H Red Blood Count 2.56 L Hemoglobin 7.0 L Hematocrit 24.7 L Mean Corpuscular Volume 96.5 Mean Corpuscular 27.3 L Hemoglobin Mean Corpuscular 28.3 L Hemoglobin Concent Red Cell Distribution 16.5 H Width Platelet Count 434 H Mean Platelet Volume 11.4 H Immature Granulocytes % 3.500 H Neutrophils % 72.8 Lymphocytes % 8.5 L Monocytes % 10.5 Eosinophils % 3.9 Basophils % 0.8 Nucleated Red Blood 0.0 Cells % Immature Granulocytes # 0.550 H Neutrophils # 11.3 H Lymphocytes # 1.3 Monocytes # 1.6 H Eosinophils # 0.6 H Basophils # 0.1 Nucleated Red Blood 0.0 Cells # Sodium Level 140 Potassium Level 4.7 Chloride Level 98 Carbon Dioxide Level 39 H Anion Gap 3 L Blood Urea Nitrogen 26 H Creatinine 0.51 L Est Glomerular Filtrat > 60 Rate mL/min Glucose Level 141 Calcium Level 9.2 Total Bilirubin 0.0 L Direct Bilirubin 0.00 Indirect Bilirubin 0.0 Aspartate Amino 25 Transf (AST/SGOT) Alanine 40 Aminotransferase (ALT/SG PT) Alkaline Phosphatase 115 Total Protein 5.5 L Albumin 2.8 L Globulin 2.70 Albumin/Globulin Ratio 1.03 Test 11/20/18 10:04 Bedside Glucose 155 Medications Medications Current Medications Acetaminophen (Tylenol Liquid) 650 mg Q4H PRN GTB MILD PAIN(1-3)OR ELEVATED TEMP Last administered on 11/16/18at 12:03; Admin Dose 650 MG; Start 10/09/18 at 14:00 Al Hydrox/Mg Hydrox/Simethicone (Mag-Al Plus) 15 ml Q6H PRN PO GASTROINTESTINAL UPSET Last administered on 10/17/18 13:18; Admin Dose 15 ML; Start 10/09/18 at 14:00 Eye Lubricant (Artificial Tears Oph) 1 drop Q6H PRN BOTH EYES DRY EYES Last administered on 11/03/18 09:33; Admin Dose 1 DROP; Start 10/09/18 at 14:00 Bisacodyl (Dulcolax Supp) 10 mg DAILY PRN [place] CONSTIPATION; Start 10/09/18 at 14:00 Clonidine (Catapres) 0.1 mg DAILY PRN GTB ELEVATED BLOOD PRESSURE; Start 10/09/18 at 14:00 Diltiazem HCl (Cardizem Iv) 5 mg Q4 PRN IV ELEVATED HEART RATE Last administered on 11/06/18 18:47; Admin Dose 5 MG; Start 10/09/18 at 14:00 Diphenhydramine HCl (Benadryl Liquid Cup) 25 mg Q6 PRN GTB ITCHING Last administered on 10/22/18 20:25; Admin Dose 25 MG; Start 10/09/18 at 14:00 Duloxetine HCl (Cymbalta) 30 mg DAILY PO Last administered on 11/20/18 09:15; Admin Dose 30 MG; Start 10/10/18 at 09:00 Gabapentin (Neurontin Liquid) 400 mg Q8 GTB Last administered on 11/20/18 05:41; Admin Dose 400 MG; Start 10/09/18 at 15:30 Hydralazine HCl (Apresoline) 10 mg Q4H PRN IV ELEVATED BLOOD PRESSURE; Start 10/09/18 at 14:00 Hydroxychloroquine Sulfate (Plaquenil) 200 mg BID PO Last administered on 11/20/18 09:16; Admin Dose 200 MG; Start 10/09/18 at 21:00 Lactobacillus Acidophilus (Florajen3 Capsule) 1 each BID GTB Last administered on 11/20/18 10:31; Admin Dose 1 EACH; Start 10/09/18 at 21:00 Lansoprazole (Prevacid) 30 mg BID@06,18 GTB Last administered on 11/20/18 05:41; Admin Dose 30 MG; Start 10/09/18 at 18:00 Levetiracetam (Keppra Liquid) 500 mg BID GTB Last administered on 11/20/18 09:16; Admin Dose 500 MG; Start 10/09/18 at 21:00 Magnesium Oxide (Mag-Ox 400) 400 mg BID GTB Last administered on 11/20/18 09:16; Admin Dose 400 MG; Start 10/09/18 at 21:00 Metoclopramide HCl (Reglan) 10 mg TID IV Last administered on 11/20/18 09:15; Admin Dose 10 MG; Start 10/09/18 at 21:00 Miconazole Nitrate (Miconazole 2% Cr) 1 applic BID TOP Last administered on 11/20/18 09:18; Admin Dose 1 APPLIC; Start 10/09/18 at 21:00 Miconazole Nitrate (Miconazole 2% Cr) 1 applic Q12 PRN TOP rash; Start 10/09/18 at 14:00 Ondansetron HCl (Zofran Inj) 4 mg Q4H PRN IV NAUSEA AND/OR VOMITING Last administered on 10/19/18 16:37; Admin Dose 4 MG; Start 10/09/18 at 14:00 Polyethylene Glycol (Miralax) 17 gm DAILY PRN GTB CONSTIPATION; Start 10/09/18 at 14:00 Senna (Senokot) 2 tab Q8 PRN PO CONSTIPATION; Start 10/09/18 at 14:00 Trimethoprim/ Sulfamethoxazole (Bactrim Susp) 40 ml DAILY GTB Last administered on 11/20/18 10:28; Admin Dose 40 ML; Start 10/10/18 at 09:00 Zolpidem Tartrate (Ambien) 5 mg HS PRN PO INSOMNIA Last administered on 01:16; Admin Dose 5 MG; Start 10/09/18 at 14:00 Miscellaneous Information 1 ea NOTE XX ; Start 10/09/18 at 15:00 Glucose (Glutose) 15 gm Q15M PRN PO DECREASED GLUCOSE; Start 10/09/18 at 15:00 Glucose (Glutose) 22.5 gm Q15M PRN PO DECREASED GLUCOSE; Start 10/09/18 at 15:00 Dextrose (D50w Syringe) 25 ml Q15M PRN IV DECREASED GLUCOSE; Start 10/09/18 at 15:00 Dextrose (D50w Syringe) 50 ml Q15M PRN IV DECREASED GLUCOSE; Start 10/09/18 at 15:00 Glucagon (Glucagen) 1 mg Q15M PRN IM DECREASED GLUCOSE; Start 10/09/18 at 15:00 Glucose (Glutose) 15 gm Q15M PRN BUCCAL DECREASED GLUCOSE; Start 10/09/18 at 15:00 Albuterol (Ventolin Hfa) 4 puff Q6H RESP THERAPY INH Last administered on 11/20/18 08:51; Admin Dose 4 PUFF; Start 10/10/18 at 02:00 Ipratropium [place] (Atrovent Hfa) 4 puff Q6H RESP THERAPY INH Last administered on 11/20/18 08:50; Admin Dose 4 PUFF; Start 10/10/18 at 02:00 Quetiapine Fumarate (Seroquel) 100 mg BID GTB Last administered on 11/20/18 09:16; Admin Dose 100 MG; Start 10/21/18 at 21:00 Calcium Carbonate (Ca Carbonate) 1,250 mg QID GTB Last administered on 11/20/18 09:17; Admin Dose 1,250 MG; Start 10/24/18 at 13:00 Metoprolol Tartrate (Lopressor) 5 mg Q4H PRN IV HR>110 Hold SBP<100 Last administered on 11/11/18 18:31; Admin Dose 5 MG; Start 10/28/18 at 12:30 IV Flush (NS 10 ml) 10 ml PRN PRN IV IV PROTOCOL; Start 11/01/18 at 16:30 Midodrine (Proamatine) 5 mg TID@,, GTB Last administered on 11/08/18 12:53; Admin Dose 5 MG; Start 11/03/18 at 09:00; Status Hold Guaifenesin (Robitussin Liquid Cup) 100 mg Q4H PRN PO COUGH Last administered on 11/13/18 17:58; Admin Dose 100 MG; Start 11/03/18 at 12:00 Lorazepam (Ativan) 1 mg Q4 GTB Last administered on 11/20/18 04:38; Admin Dose 1 MG; Start 11/09/18 at 14:00 Carvedilol (Coreg) 6.25 mg BID PO Last administered on 11/20/18 09:15; Admin Dose 6.25 MG; Start 11/09/18 at 21:00 Benazepril HCl (Lotensin) 10 mg DAILY PO Last administered on 11/20/18 09:16; Admin Dose 10 MG; Start 11/10/18 at 09:00 Digoxin (Digoxin) 0.25 mg DAILY@13 PO Last administered on 11/16/18 12:04; Admin Dose 0.25 MG; Start 11/11/18 at 13:00; Status Hold Furosemide (Lasix) 20 mg DAILY IV Last administered on 11/15/18 08:58; Admin Dose 20 MG; Start 11/10/18 at 12:30; Status Hold Hydromorphone HCl (Dilaudid) 3 mg Q4H PRN PO MODERATE PAIN LEVEL 7-10 Last administered on 11/17/18 01:47; Admin Dose 3 MG; Start 11/10/18 at 22:00 Cefepime HCl 50 ml @ 100 mls/hr Q12 IVPB Last administered on 11/20/18 09:17; Admin Dose 100 MLS/HR; Start 11/10/18 at 23:30 Fentanyl 100 ml @ 2.5 mls/hr TITRATE IV Last administered on 11/19/18 18:54; Admin Dose 2.5 MLS/HR; Start 11/14/18 at 09:00 Ascorbic Acid (Vitamin C) 250 mg DAILY GTB Last administered on 11/20/18 09:15; Admin Dose 250 MG; Start 11/15/18 at 09:00; Stop 11/29/18 at 09:00 Zinc Sulfate (Zinc Sulfate) 220 mg DAILY GTB Last administered on 11/20/18 09:15; Admin Dose 220 MG; Start 11/15/18 at 09:00; Stop 11/29/18 at 09:00 Hydrocortisone (Cortef) 15 mg HS PEG Last administered on 11/19/18 20:24; Admin Dose 15 MG; Start 11/15/18 at 21:00 Hydrocortisone (Cortef) 15 mg QAM PEG Last administered on 11/20/18 09:15; Admin Dose 15 MG; Start 11/16/18 at 09:00 Hydrocortisone (Cortef) 15 mg AC DINNER PEG Last administered on 11/19/18 16:17; Admin Dose 15 MG; Start 11/15/18 at 17:05 Acetazolamide (Diamox) 500 mg DAILY IV Last administered on 11/20/18 09:17; Admin Dose 500 MG; Start 11/16/18 at 09:30 Daptomycin 185 mg/ Sodium Chloride 100 ml @ 200 mls/hr Q24H IVPB Last administered on 11/19/18 16:16; Admin Dose 200 MLS/HR; Start 11/16/18 at 16:00; Stop 11/21/18 at 15:59 Enoxaparin Sodium (Lovenox) 30 mg DAILY SC Last administered on 11/20/18 09:49; Admin Dose 30 MG; Start 11/16/18 at 16:00 Insulin Aspart (Novolog Insulin Pen) NOVOLOG *CUSTOM* ALGORITHM Q6 SC Last administered on 11/20/18 05:47; Admin Dose 1 UNIT; Start 11/17/18 at 12:00 Linagliptin (Tradjenta) 5 mg DAILY PO Last administered on 11/20/18 09:16; Admin Dose 5 MG; Start 11/18/18 at 09:00 Calcitriol (Rocaltrol Liquid (Ped)) 1.5 mcg BID GTB Last administered on 11/20/18 10:28; Admin Dose 1.5 MCG; Start 11/20/18 at 11:00 BRISA HAQUE Nov 20, 2018 13:02
[2018-11-20 14:43] LABS: PNEUMOCYSTIS JIROVECCI DFA NOT DETECTED
--- NOTE | 2018-11-20 15:51 | CONS ---
Assessment/Plan Assessment/Plan Hospital Course (Demo Recall) # sepsis, respiratory - recurrent sepsis probably due to aspiration pneumonia, HCAP, UTI - s/p recurrent sepsis due to aspiration pneumonia, HCAP - possible aspiration pneumonia, recurrent pneumonia due to citrobacter - h/o HCAP due to citrobacter, based on resp culture on 09/13/2018 - acute on chronic hypoxic and hypercarbic respiratory failure - intermittent leukocytosis likely due to steroid margination and sepsis - h/o tracheostomy on 08/26/2018 - h/o "Increased mild left apical pneumothorax" per CXR on 09/19/2018; no pneumothorax mentioned on subsequent CXR - h/o pneumomediastinum - h/o VAT on 08/11/2018 - h/o asthma/COPD exacerbation - h/o acute tracheobronchitis - h/o MAC infection but CT chest did not demonstrate features suggestive of this per chart review - h/o aspergillus in resp culture according to a note by Dr. Lopez, a pulmonlogist at [facility] on 07/25/2018 - h/o elevated 1,3 [id number] level = 232 on 08/06/2018, repeat 1,1-oxjt-O-glucan was negative - h/o MSSA septicemia # GI - diarrhea, C diff on 10/09/2018 and 11/11/2018 was negative. 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 x 21 days from 08/26/2018 - h/o EGD, esophageal biopsy showed esophageal squamous mucosa showing acute inflammation, granulation tissue, and ulceration consistent with ulcerative esophagitis, rare multinucleated cells with morphology suggestive of vial cytopathic changes, No cardiac mucosa, intestinal metaplasia, dysplasia, or malignancy defined - GERD - PUD # renal/ - UTI due to enterococci 11/15/2018, on daptomycin - s/p hypokalemia, recurrent - CKD 2 - BPH # cardiac - tachycardia, intermittent - ACD - HTN # endo - T2DM - Hgb A1c 7.2% - secondary adrenal insufficiency; steroid dependent - HLD - Hypoparathyroidism - Hypercalcemia # neuro - toxic metabolic encephalopathy - cervical myopathy - severe cervical spinal cord stenosis with cord compression from C3-C5, s/p laminectomy in ~03/2018 - chronic pain syndrome - functional quadriplegia - seizure d/o # other chronic conditions - RA with chronic steroid dependence - Immunocompromised status - Fibromyalgia - DDD - H/o multiple rib fracture - Pt completed: meropenem (09/25/2018-10/02/2018), vancomycin (09/25/18-09/28/18), pip/tazo (10/09/2018-10/15/2018), cefepime (restarted 11/10/2018-11/18/2018) - so far: pneumocystis antigen negative, AFB smear negative and final culture x3 pending, quantiferon TB gold negative, coccidioides serology negative, repeat 1,6-ucqg-A-glucan negative recommendations: - complete daptomycin (11/16/2018-11/21/2018 planned) 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 Pt cannot take linezolid due to its interaction with seroquel - continue Bactrim for pneumocystis PPX Management d/w SENIOR SPEECH PATHOLOGIST Markus and Pt's the critical care time that I took to care for this Pt today was from 1415 to 1445 Consultation Date/Type/Reason Admit Date/Time Oct 09, 2018 at 12:16 Initial Consult Date 10/09/18 Type of Consult ID Requesting Provider: NOLA VIDAL MD Date/Time of Note DATE: 11/20/18 TIME: 15:46 24 HR Interval Summary Subjective hx not possible: pt non-verbal, pt critical, pt critical status Exam/Review of Systems Exam Vitals Vital Signs Date Temp Pulse Resp B/P (MAP) Pulse Ox O2 O2 Flow FiO2 Time Delivery Rate 11/20/18 105 22 91/58 (69) 99 Mechanical 15:00 Ventilator 11/20/18 90 11:30 11/20/18 98.1 04:00 Intake and Output 11/19/18 11/19/18 11/20/18 1515:00 23:00 07:00 IntakeIntake Total 306.775 ml 605.725 ml 481.5 ml OutputOutput Total 700 ml 635 ml BalanceBalance 306.775 ml -94.275 ml -153.5 ml Constitutional: non-verbal, frail Psych: confusion Head: normocephalic, atraumatic Eyes: nl conjunctiva, nl sclera, other (augusto-orbital swelling) ENMT: nl external ears & nose, nl nasal mucosa & septum, mucosa pink and moist Neck: other (trach) Respiratory: crackles/rales, diminished breath sounds Cardiovascular: regular rate and rhythm, nl pulses; No edema Gastrointestinal: soft, non-tender, other (GT and rectal tube); No distended, No tender Genitourinary - Male: other (FC) Musculoskeletal: No swelling Extremities: normal pulses; No edema Neurological: unresponsive Skin: rash or lesions (stage II decub of coccyx) Results Result Diagram: 11/20/18 0423 11/20/18 0423 Results 24hrs Laboratory Tests Test 11/19/18 18:41 11/19/18 23:28 11/20/18 04:23 11/20/18 05:40 Bedside Glucose 142 175 159 White Blood Count 15.6 H Red Blood Count 2.56 L Hemoglobin 7.0 L Hematocrit 24.7 L Mean Corpuscular Volume 96.5 Mean Corpuscular 27.3 L Hemoglobin Mean Corpuscular 28.3 L Hemoglobin Concent Red Cell Distribution 16.5 H Width Platelet Count 434 H Mean Platelet Volume 11.4 H Immature Granulocytes % 3.500 H Neutrophils % 72.8 Lymphocytes % 8.5 L Monocytes % 10.5 Eosinophils % 3.9 Basophils % 0.8 Nucleated Red Blood 0.0 Cells % Immature Granulocytes # 0.550 H Neutrophils # 11.3 H Lymphocytes # 1.3 Monocytes # 1.6 H Eosinophils # 0.6 H Basophils # 0.1 Nucleated Red Blood 0.0 Cells # Sodium Level 140 Potassium Level 4.7 Chloride Level 98 Carbon Dioxide Level 39 H Anion Gap 3 L Blood Urea Nitrogen 26 H Creatinine 0.51 L Est Glomerular Filtrat > 60 Rate mL/min Glucose Level 141 Calcium Level 9.2 Total Bilirubin 0.0 L Direct Bilirubin 0.00 Indirect Bilirubin 0.0 Aspartate Amino 25 Transf (AST/SGOT) Alanine 40 Aminotransferase (ALT/SG PT) Alkaline Phosphatase 115 Total Protein 5.5 L Albumin 2.8 L Globulin 2.70 Albumin/Globulin Ratio 1.03 Test 11/20/18 10:04 11/20/18 13:23 Bedside Glucose 155 166 Medications Medication Current Medications Acetaminophen (Tylenol Liquid) 650 mg Q4H PRN GTB MILD PAIN(1-3)OR ELEVATED TEMP Last administered on 11/16/18at 12:03; Admin Dose 650 MG; Start 10/09/18 at 14:00 Al Hydrox/Mg Hydrox/Simethicone (Mag-Al Plus) 15 ml Q6H PRN PO GASTROINTESTINAL UPSET Last administered on 10/17/18 13:18; Admin Dose 15 ML; Start 10/09/18 at 14:00 Eye Lubricant (Artificial Tears Oph) 1 drop Q6H PRN BOTH EYES DRY EYES Last administered on 11/03/18 09:33; Admin Dose 1 DROP; Start 10/09/18 at 14:00 Bisacodyl (Dulcolax Supp) 10 mg DAILY PRN [place] CONSTIPATION; Start 10/09/18 at 14:00 Clonidine (Catapres) 0.1 mg DAILY PRN GTB ELEVATED BLOOD PRESSURE; Start 10/09/18 at 14:00 Diltiazem HCl (Cardizem Iv) 5 mg Q4 PRN IV ELEVATED HEART RATE Last administered on 11/06/18 18:47; Admin Dose 5 MG; Start 10/09/18 at 14:00 Diphenhydramine HCl (Benadryl Liquid Cup) 25 mg Q6 PRN GTB ITCHING Last administered on 10/22/18 20:25; Admin Dose 25 MG; Start 10/09/18 at 14:00 Duloxetine HCl (Cymbalta) 30 mg DAILY PO Last administered on 11/20/18 09:15; Admin Dose 30 MG; Start 10/10/18 at 09:00 Gabapentin (Neurontin Liquid) 400 mg Q8 GTB Last administered on 11/20/18 13:27; Admin Dose 400 MG; Start 10/09/18 at 15:30 Hydralazine HCl (Apresoline) 10 mg Q4H PRN IV ELEVATED BLOOD PRESSURE; Start 10/09/18 at 14:00 Hydroxychloroquine Sulfate (Plaquenil) 200 mg BID PO Last administered on 11/20/18 09:16; Admin Dose 200 MG; Start 10/09/18 at 21:00 Lactobacillus Acidophilus (Florajen3 Capsule) 1 each BID GTB Last administered on 11/20/18 10:31; Admin Dose 1 EACH; Start 10/09/18 at 21:00 Lansoprazole (Prevacid) 30 mg BID@06,18 GTB Last administered on 11/20/18 05:41; Admin Dose 30 MG; Start 10/09/18 at 18:00 Levetiracetam (Keppra Liquid) 500 mg BID GTB Last administered on 11/20/18 09:16; Admin Dose 500 MG; Start 10/09/18 at 21:00 Magnesium Oxide (Mag-Ox 400) 400 mg BID GTB Last administered on 11/20/18 09:16; Admin Dose 400 MG; Start 10/09/18 at 21:00 Metoclopramide HCl (Reglan) 10 mg TID IV Last administered on 11/20/18 13:26; Admin Dose 10 MG; Start 10/09/18 at 21:00 Miconazole Nitrate (Miconazole 2% Cr) 1 applic BID TOP Last administered on 11/20/18 09:18; Admin Dose 1 APPLIC; Start 10/09/18 at 21:00 Miconazole Nitrate (Miconazole 2% Cr) 1 applic Q12 PRN TOP rash; Start 10/09/18 at 14:00 Ondansetron HCl (Zofran Inj) 4 mg Q4H PRN IV NAUSEA AND/OR VOMITING Last administered on 10/19/18at 16:37; Admin Dose 4 MG; Start 10/09/18 at 14:00 Polyethylene Glycol (Miralax) 17 gm DAILY PRN GTB CONSTIPATION; Start 10/09/18 at 14:00 Senna (Senokot) 2 tab Q8 PRN PO CONSTIPATION; Start 10/09/18 at 14:00 Trimethoprim/ Sulfamethoxazole (Bactrim Susp) 40 ml DAILY GTB Last administered on 11/20/18 10:28; Admin Dose 40 ML; Start 10/10/18 at 09:00 Zolpidem Tartrate (Ambien) 5 mg HS PRN PO INSOMNIA Last administered on 11/03/18 01:16; Admin Dose 5 MG; Start 10/09/18 at 14:00 Miscellaneous Information 1 ea NOTE XX ; Start 10/09/18 at 15:00 Glucose (Glutose) 15 gm Q15M PRN PO DECREASED GLUCOSE; Start 10/09/18 at 15:00 Glucose (Glutose) 22.5 gm Q15M PRN PO DECREASED GLUCOSE; Start 10/09/18 at 15:00 Dextrose (D50w Syringe) 25 ml Q15M PRN IV DECREASED GLUCOSE; Start 10/09/18 at 15:00 Dextrose (D50w Syringe) 50 ml Q15M PRN IV DECREASED GLUCOSE; Start 10/09/18 at 15:00 Glucagon (Glucagen) 1 mg Q15M PRN IM DECREASED GLUCOSE; Start 10/09/18 at 15:00 Glucose (Glutose) 15 gm Q15M PRN BUCCAL DECREASED GLUCOSE; Start 10/09/18 at 15:00 Albuterol (Ventolin Hfa) 4 puff Q6H RESP THERAPY INH Last administered on 11/20/18 08:51; Admin Dose 4 PUFF; Start 10/10/18 at 02:00 Ipratropium [place] (Atrovent Hfa) 4 puff Q6H RESP THERAPY INH Last administered on 11/20/18 08:50; Admin Dose 4 PUFF; Start 10/10/18 at 02:00 Quetiapine Fumarate (Seroquel) 100 mg BID GTB Last administered on 11/20/18 09:16; Admin Dose 100 MG; Start 10/21/18 at 21:00 Calcium Carbonate (Ca Carbonate) 1,250 mg QID GTB Last administered on 11/20/18 13:25; Admin Dose 1,250 MG; Start 10/24/18 at 13:00 Metoprolol Tartrate (Lopressor) 5 mg Q4H PRN IV HR>110 Hold SBP<100 Last administered on 11/11/18 18:31; Admin Dose 5 MG; Start 10/28/18 at 12:30 IV Flush (NS 10 ml) 10 ml PRN PRN IV IV PROTOCOL; Start 11/01/18 at 16:30 Midodrine (Proamatine) 5 mg TID@,,17 GTB Last administered on 11/08/18 12:53; Admin Dose 5 MG; Start 11/03/18 at 09:00; Status Hold Guaifenesin (Robitussin Liquid Cup) 100 mg Q4H PRN PO COUGH Last administered on 11/13/18 17:58; Admin Dose 100 MG; Start 11/03/18 at 12:00 Lorazepam (Ativan) 1 mg Q4 GTB Last administered on 11/20/18 04:38; Admin Dose 1 MG; Start 11/09/18 at 14:00 Carvedilol (Coreg) 6.25 mg BID PO Last administered on 11/20/18 09:15; Admin Dose 6.25 MG; Start 11/09/18 at 21:00 Benazepril HCl (Lotensin) 10 mg DAILY PO Last administered on 11/20/18 09:16; Admin Dose 10 MG; Start 11/10/18 at 09:00 Digoxin (Digoxin) 0.25 mg DAILY@13 PO Last administered on 11/16/18 12:04; Admin Dose 0.25 MG; Start 11/11/18 at 13:00; Status Hold Furosemide (Lasix) 20 mg DAILY IV Last administered on 11/15/18 08:58; Admin Dose 20 MG; Start 11/10/18 at 12:30; Status Hold Hydromorphone HCl (Dilaudid) 3 mg Q4H PRN PO MODERATE PAIN LEVEL 7-10 Last administered on 11/17/18 01:47; Admin Dose 3 MG; Start 11/10/18 at 22:00 Cefepime HCl 50 ml @ 100 mls/hr Q12 IVPB Last administered on 11/20/18 09:17; Admin Dose 100 MLS/HR; Start 11/10/18 at 23:30 Fentanyl 100 ml @ 2.5 mls/hr TITRATE IV Last administered on 11/19/18 18:54; Admin Dose 2.5 MLS/HR; Start 11/14/18 at 09:00 Ascorbic Acid (Vitamin C) 250 mg DAILY GTB Last administered on 11/20/18 09:15; Admin Dose 250 MG; Start 11/15/18 at 09:00; Stop 11/29/18 at 09:00 Zinc Sulfate (Zinc Sulfate) 220 mg DAILY GTB Last administered on 11/20/18 09:15; Admin Dose 220 MG; Start 11/15/18 at 09:00; Stop 11/29/18 at 09:00 Hydrocortisone (Cortef) 15 mg HS PEG Last administered on 11/19/18 20:24; Admin Dose 15 MG; Start 11/15/18 at 21:00 Hydrocortisone (Cortef) 15 mg QAM PEG Last administered on 11/20/18 09:15; Admin Dose 15 MG; Start 11/16/18 at 09:00 Hydrocortisone (Cortef) 15 mg AC DINNER PEG Last administered on 11/19/18 16:17; Admin Dose 15 MG; Start 11/15/18 at 17:05 Acetazolamide (Diamox) 500 mg DAILY IV Last administered on 11/20/18 09:17; Admin Dose 500 MG; Start 11/16/18 at 09:30 Daptomycin 185 mg/ Sodium Chloride 100 ml @ 200 mls/hr Q24H IVPB Last administered on 11/19/18 16:16; Admin Dose 200 MLS/HR; Start 11/16/18 at 16:00; Stop 11/21/18 at 15:59 Enoxaparin Sodium (Lovenox) 30 mg DAILY SC Last administered on 11/20/18 09:49; Admin Dose 30 MG; Start 11/16/18 at 16:00 Insulin Aspart (Novolog Insulin Pen) NOVOLOG *CUSTOM* ALGORITHM Q6 SC Last administered on 11/20/18 13:24; Admin Dose 1 UNIT; Start 11/17/18 at 12:00 Linagliptin (Tradjenta) 5 mg DAILY PO Last administered on 11/20/18 09:16; Admin Dose 5 MG; Start 11/18/18 at 09:00 Calcitriol (Rocaltrol Liquid (Ped)) 1.5 mcg BID GTB Last administered on 11/20/18 10:28; Admin Dose 1.5 MCG; Start 11/20/18 at 11:00 NEMO MARTINEZ M.D. Nov 20, 2018 15:51
[2018-11-20] MEDS: DAPTOMYCIN IVPB SCH (17:32)
[2018-11-20] MEDS: SOD CHLORIDE 0.9% IVPB SCH (17:32)
[2018-11-20] MEDS ORDERED: morphine (DRIP) 100 MG/100 ML 100 ML IV SCH (18:30)
[2018-11-20] MEDS ORDERED: ATROPINE 1% 5 ML OPH SL PRN (19:00)
[2018-11-20] MEDS: LORAZEPAM 2 MG INJ IV PRN ×2 (19:03→20:01)
== END 2018-11-20 22:53 | disposition expired | DRG 870 ==
LOC: ICU 12:16
PROVIDERS: ADMIT Internal Medicine; ATTEND Internal Medicine
PROC: 5A1955Z Respiratory Ventilation, Greater than 96 Consecutive Hours (ICD-10-PCS; 2018-10-09)
PROC: 02HV33Z Insertion of Infusion Device into Superior Vena Cava, Percutaneous Approach (ICD-10-PCS; principal; 2018-11-01)
DX: A41.9 Sepsis, unspecified organism (principal); L89.153 Pressure ulcer of sacral region, stage 3; J69.0 Pneumonitis due to inhalation of food and vomit; J96.22 Acute and chronic respiratory failure with hypercapnia; J96.21 Acute and chronic respiratory failure with hypoxia; G92 Toxic encephalopathy; R65.21 Severe sepsis with septic shock; R53.2 Functional quadriplegia; E87.0 Hyperosmolality and hypernatremia; N17.9 Acute kidney failure, unspecified; E27.3 Drug-induced adrenocortical insufficiency; I42.9 Cardiomyopathy, unspecified; N39.0 Urinary tract infection, site not specified; Z99.11 Dependence on respirator [ventilator] status; I12.9 Hypertensive chronic kidney disease with stage 1 through stage 4 chronic kidney disease, or unspecified chronic kidney disease; Z66 Do not resuscitate; L89.152 Pressure ulcer of sacral region, stage 2; J44.9 Chronic obstructive pulmonary disease, unspecified; M06.9 Rheumatoid arthritis, unspecified; E11.43 Type 2 diabetes mellitus with diabetic autonomic (poly)neuropathy; K31.84 Gastroparesis; E03.9 Hypothyroidism, unspecified; G89.4 Chronic pain syndrome; N18.2 Chronic kidney disease, stage 2 (mild); D89.9 Disorder involving the immune mechanism, unspecified; M79.7 Fibromyalgia; R19.7 Diarrhea, unspecified; G40.909 Epilepsy, unspecified, not intractable, without status epilepticus; E83.52 Hypercalcemia; K21.9 Gastro-esophageal reflux disease without esophagitis; F41.9 Anxiety disorder, unspecified; R13.12 Dysphagia, oropharyngeal phase; E87.70 Fluid overload, unspecified; E83.51 Hypocalcemia; E87.5 Hyperkalemia; E83.42 Hypomagnesemia; E87.6 Hypokalemia; E11.42 Type 2 diabetes mellitus with diabetic polyneuropathy; F32.9 Major depressive disorder, single episode, unspecified; K59.00 Constipation, unspecified; D63.8 Anemia in other chronic diseases classified elsewhere; Z79.4 Long term (current) use of insulin; Z93.1 Gastrostomy status; Z93.0 Tracheostomy status; Z51.5 Encounter for palliative care
CPT/HCPCS: 36430; 36569; 36600; 71045; 74018; 76937; 80048; 80053; 80162; 81001; 81003; 82043; 82270; 82330; 82550; 82728; 82803; 82962; 83540; 83605; 83735; 83935; 83970; 84100; 84145; 84155; 84300; 84443; 84484; 85025; 86480; 86635; 86850; 86900; 86901; 86920; 87015; 87045; 87070; 87075; 87081; 87086; 87116; 87281; 89220; 90686; 92526; 92610; 93306; 93970; 94002; 94003; 94640; 94664; 97110; 97161; 97530; J0610; J0692; J1120; J1170; J1650; J1720; J1815; J1940; J2060; J2270; J2310; J2405; J2543; J2765; J2920; J3010; J3475; J3480; J7030; J7040; J7070; J7512; P9016; P9047; Q4081